=== PATIENT | female | born 1945 | race Caucasian/White ===

== ENCOUNTER 2018-09-22 12:45 | Outpatient (CLI) | payer MEDICARE, SELFPAY ==
[2018-09-22 13:16] LABS: Abs Immature Grans 0.02 k/cumm (0.0-0.09); Absolute Basophil Count 0.05 k/cumm (0.0-0.2); Absolute Eosinophil Count 0.19 k/cumm (0.0-0.7); Absolute Lymphocyte Count 1.84 k/cumm (1.2-3.4); Absolute Monocyte Count 0.62 k/cumm (0.11-0.7); Absolute Neutrophil Count 3.14 k/cumm (1.2-6.7); Basophils % 0.9; Eosinophils % 3.2; HCT 32.6 % (36.0-46.0); HGB 9.8 g/dL (12.0-15.5); Immature Grans % 0.3; Lymphocytes % 31.4; Mean Corp. HGB Concentration 30.1 g/dL (32.0-36.0); Mean Corpuscular Hemoglobin 21.9 pg (27.0-33.0); Mean Corpuscular Volume 72.9 fL (80-95); Mean Platelet Volume 11.8 fL (8.0-11.0); Monocytes % 10.6; Neutrophils % 53.6; Platelet Count 320 x1000/uL (130-400); RBC 4.47 m/cumm (4.00-5.20); RBC Distribution Width 16.3 % (11.7-14.6); White Blood Cell Count 5.86 k/cumm (4.4-10.8)
[2018-09-22 14:29] LABS: Diff Comment RBC Morph Reviewed; Hypochromasia 3+; Microcytosis 3+; Ovalocytes 2+; Poikilocytes 1+; Polychromasia Present
[2018-09-22 15:01] LABS: Iron 36 ug/dL (50-175)
[2018-09-22 15:16] LABS: Ferritin 6 ng/mL (8-388)
== END 2018-09-22 13:05 ==
PROVIDERS: PCP Family Medicine; Visit Provider Family Medicine
DX: D64.9 Anemia, unspecified (principal)
CPT/HCPCS: 36415; 82728; 83540; 85025

== ENCOUNTER 2018-10-16 11:59 | Outpatient (REF) | payer MEDICARE, SELFPAY ==
[2018-10-16 13:51] LABS: Bilirubin Negative (Negative); Blood Negative (Negative); Clarity Clear; Glucose Negative (Negative); Ketones Negative (Negative); Leukocyte Esterase Negative (Negative); Nitrite Negative (Negative); Urobilinogen 0.2 EU/dL (Up TO 0.2); pH 6.5 (5-8)
== END 2018-10-16 12:19 ==
LOC: LBN 11:59
PROVIDERS: PCP Family Medicine; Visit Provider Family Medicine
DX: N39.8 Other specified disorders of urinary system (principal)
CPT/HCPCS: 81003

== ENCOUNTER 2019-01-28 07:34 | Outpatient (REF) | payer MEDICARE, SELFPAY ==
[2019-01-28 09:28] LABS: Bilirubin Negative (Negative); Blood Negative (Negative); Clarity Clear; Glucose Negative (Negative); Ketones Negative (Negative); Leukocyte Esterase Negative (Negative); Nitrite Negative (Negative); Specific Gravity 1.025 (1.005-1.025); Urobilinogen 0.2 EU/dL (Up TO 0.2); pH 5.5 (5-8)
== END 2019-01-28 07:54 ==
LOC: LBN 07:34
PROVIDERS: PCP Family Medicine; Visit Provider Family Medicine
DX: N39.0 Urinary tract infection, site not specified (principal)
CPT/HCPCS: 81003

== ENCOUNTER 2019-01-30 13:21 | Outpatient (CLI) | payer MEDICARE, SELFPAY ==
[2019-01-30 13:49] LABS: HCT 43.2 % (36.0-46.0); HGB 13.9 g/dL (12.0-15.5); Mean Corp. HGB Concentration 32.2 g/dL (32.0-36.0); Mean Corpuscular Hemoglobin 27.5 pg (27.0-33.0); Mean Corpuscular Volume 85.5 fL (80-95); Mean Platelet Volume 11.3 fL (8.0-11.0); Platelet Count 203 x1000/uL (130-400); RBC 5.05 m/cumm (4.00-5.20); RBC Distribution Width 16.8 % (11.7-14.6); White Blood Cell Count 5.75 k/cumm (4.4-10.8)
[2019-01-30 14:12] LABS: Iron 40 ug/dL (50-175)
== END 2019-01-30 13:41 ==
PROVIDERS: PCP Family Medicine; Visit Provider Family Medicine
DX: D64.9 Anemia, unspecified (principal); E61.1 Iron deficiency
CPT/HCPCS: 36415; 85027; 83540

== ENCOUNTER 2019-05-04 01:29 | Outpatient (CLI) | payer MEDICARE, SELFPAY ==
[2019-05-04 08:11] LABS: HCT 43.9 % (36.0-46.0); HGB 14.4 g/dL (12.0-15.5); Mean Corp. HGB Concentration 32.8 g/dL (32.0-36.0); Mean Corpuscular Hemoglobin 29.1 pg (27.0-33.0); Mean Corpuscular Volume 88.9 fL (80-95); Mean Platelet Volume 10.9 fL (8.0-11.0); Platelet Count 228 x1000/uL (130-400); RBC 4.94 m/cumm (4.00-5.20); RBC Distribution Width 13.2 % (11.7-14.6); White Blood Cell Count 5.07 k/cumm (4.4-10.8)
[2019-05-04 09:12] LABS: Iron 56 ug/dL (50-175)
[2019-05-04 09:26] LABS: Ferritin 79 ng/mL (8-388)
== END 2019-05-04 01:49 ==
PROVIDERS: PCP Family Medicine; Visit Provider Family Medicine
DX: D64.9 Anemia, unspecified (principal); E61.1 Iron deficiency
CPT/HCPCS: 36415; 85027; 82728; 83540

== ENCOUNTER 2019-07-30 09:26 | Outpatient (CLI) | payer MEDICARE, SELFPAY ==
[2019-07-30 13:25] LABS: Abs Immature Grans 0.01 k/cumm (0.0-0.09); Absolute Basophil Count 0.03 k/cumm (0.0-0.2); Absolute Eosinophil Count 0.13 k/cumm (0.0-0.7); Absolute Lymphocyte Count 1.75 k/cumm (1.2-3.4); Absolute Monocyte Count 0.56 k/cumm (0.11-0.7); Basophils % 0.5; Eosinophils % 2.2; HCT 44.3 % (36.0-46.0); HGB 14.7 g/dL (12.0-15.5); Immature Grans % 0.2; Lymphocytes % 29.8; Mean Corp. HGB Concentration 33.2 g/dL (32.0-36.0); Mean Corpuscular Hemoglobin 29.5 pg (27.0-33.0); Mean Platelet Volume 10.6 fL (8.0-11.0); Monocytes % 9.5; Neutrophils % 57.8; Platelet Count 255 x1000/uL (130-400); RBC 4.98 m/cumm (4.00-5.20); White Blood Cell Count 5.88 k/cumm (4.4-10.8)
[2019-07-30 14:34] LABS: Iron 119 ug/dL (50-175)
[2019-07-30 14:50] LABS: Ferritin 105 ng/mL (8-388)
== END 2019-07-30 09:46 ==
PROVIDERS: PCP Family Medicine; Visit Provider Family Medicine
DX: D64.9 Anemia, unspecified (principal); E61.1 Iron deficiency
CPT/HCPCS: 36415; 82728; 83540; 85025

== ENCOUNTER 2019-11-09 08:26 | Outpatient (CLI) | payer MEDICARE, SELFPAY ==
[2019-11-09 08:55] LABS: HCT 44.9 % (36.0-46.0); HGB 14.9 g/dL (12.0-15.5); Mean Corp. HGB Concentration 33.2 g/dL (32.0-36.0); Mean Corpuscular Hemoglobin 29.3 pg (27.0-33.0); Mean Corpuscular Volume 88.2 fL (80-95); Platelet Count 240 x1000/uL (130-400); RBC 5.09 m/cumm (4.00-5.20); White Blood Cell Count 4.83 k/cumm (4.4-10.8)
[2019-11-09 13:47] LABS: Ferritin 112 ng/mL (8-252)
[2019-11-09 14:04] LABS: Iron 107 ug/dL (50-170)
== END 2019-11-09 08:46 ==
PROVIDERS: PCP Family Medicine; Visit Provider Family Medicine
DX: D64.9 Anemia, unspecified (principal); E61.1 Iron deficiency
CPT/HCPCS: 36415; 85027; 82728; 83540

== ENCOUNTER 2020-03-11 11:02 | Outpatient (CLI) | payer MEDICARE, SELFPAY ==
--- NOTE | 2020-03-11 10:33 | DI.RAD_ITS ---
EXAM: XR RIBS BI INCLUDE CHEST CLINICAL HISTORY: fell - chest pain and rib pain,r07.81,w19,xxxa TECHNIQUE: 2D digital imaging was performed. COMPARISON: CR CHEST 2 VIEWS PA,LAT from 12/02/2012 FINDINGS: MEDIASTINUM: Hiatal hernia is again seen. HEART: Normal. PULMONARY VASCULATURE: Normal. LUNGS: Clear. PLEURAL SPACE: No pleural effusion or pneumothorax. BONE:Age-appropriate degenerative changes. BILATERAL RIBS: Normal. OTHER FINDINGS:Normal. IMPRESSION: 1. No acute pulmonary findings. 2. Unremarkable ribs. DATA REPOSITORY: RADIATION DOSE DELIVERED:
== END 2020-03-11 11:22 ==
PROVIDERS: PCP Family Medicine; Visit Provider Family Medicine
DX: R07.89 Other chest pain (principal); R07.81 Pleurodynia; W19.XXXA Unspecified fall, initial encounter; K44.9 Diaphragmatic hernia without obstruction or gangrene
CPT/HCPCS: 71046; 71110

== ENCOUNTER 2020-03-14 01:28 | Outpatient (CLI) | payer MEDICARE, SELFPAY ==
--- NOTE | 2020-03-14 11:00 | DI.RAD_ITS ---
EXAM: XR THORACIC SPINE COMPLETE CLINICAL HISTORY: thoracic and rib pain, FALL, BACK PAIN, M54.9 DORSALGIA. TECHNIQUE: 2D digital imaging was performed. COMPARISON: CR XR RIBS BI INCLUDE CHEST from 03/11/2020 FINDINGS: BONES: There is no fracture or destructive lesion. DISKS:Alignment is within normal limits. There are endplate osteophytes greatest in the mid to lower thoracic spine eccentric toward the right. There is some narrowing of the anterior disc spaces.. SOFT TISSUE: Visualized lungs are clear. IMPRESSION: Degenerative disc changes, greater in the mid to lower thoracic region.. DATA REPOSITORY: RADIATION DOSE DELIVERED:
== END 2020-03-14 01:48 ==
PROVIDERS: PCP Family Medicine; Visit Provider Family Medicine
DX: M54.6 Pain in thoracic spine (principal); R07.81 Pleurodynia; W19.XXXA Unspecified fall, initial encounter; M51.34 Other intervertebral disc degeneration, thoracic region
CPT/HCPCS: 72072

== ENCOUNTER 2020-03-14 02:06 | Outpatient (CLI) | payer MEDICARE, SELFPAY ==
[2020-03-14 11:13] LABS: HCT 42.8 % (36.0-46.0); Mean Corp. HGB Concentration 32.7 g/dL (32.0-36.0); Mean Corpuscular Hemoglobin 29.4 pg (27.0-33.0); Mean Corpuscular Volume 89.7 fL (80-95); Mean Platelet Volume 11.5 fL (8.0-11.0); Platelet Count 244 x1000/uL (130-400); RBC 4.77 m/cumm (4.00-5.20); RBC Distribution Width 13.5 % (11.7-14.6); White Blood Cell Count 5.47 k/cumm (4.4-10.8)
[2020-03-14 12:03] LABS: Iron 90 ug/dL (50-170)
[2020-03-14 12:14] LABS: Ferritin 85 ng/mL (8-252)
== END 2020-03-14 02:26 ==
PROVIDERS: PCP Family Medicine; Visit Provider Family Medicine
DX: D64.9 Anemia, unspecified (principal); E61.1 Iron deficiency; M54.9 Dorsalgia, unspecified; R07.81 Pleurodynia; M51.34 Other intervertebral disc degeneration, thoracic region; W19.XXXA Unspecified fall, initial encounter
CPT/HCPCS: 36415; 85027; 72072; 82728; 83540

== ENCOUNTER 2020-06-08 02:41 | Outpatient (CLI) | payer MEDICARE, SELFPAY ==
[2020-06-08 09:30] LABS: HCT 43.2 % (36.0-46.0); HGB 13.9 g/dL (11.2-15.7); MCH 29.1 pg (27.0-33.0); MCHC 32.2 % (32.0-36.0); MCV 90.4 fL (80-95); MPV 11.6 fL (8.0-11.0); Platelet Count 220 10^3/uL (130-400); RBC 4.78 10^6/uL (3.93-5.22); RDW 13.6 % (11.7-14.6); RDW-SD 45.5 fL; WBC 4.36 10^3/uL (4.4-10.8)
[2020-06-08 14:08] LABS: Ferritin 91 ng/mL (8-252)
== END 2020-06-08 03:01 ==
PROVIDERS: PCP Family Medicine; Visit Provider Family Medicine
DX: D64.9 Anemia, unspecified (principal)
CPT/HCPCS: 36415; 85027; 82728

== ENCOUNTER 2020-09-08 05:04 | Outpatient (CLI) | payer MEDICARE, SELFPAY ==
[2020-09-08 08:05] LABS: HCT 43.6 % (36.0-46.0); HGB 14.2 g/dL (11.2-15.7); MCH 29.5 pg (27.0-33.0); MCHC 32.6 % (32.0-36.0); MCV 90.6 fL (80-95); MPV 11.5 fL (8.0-11.0); Platelet Count 251 10^3/uL (130-400); RBC 4.81 10^6/uL (3.93-5.22); RDW-SD 43.5 fL; WBC 5.39 10^3/uL (4.4-10.8)
[2020-09-08 08:27] LABS: Iron 141 ug/dL (50-170)
[2020-09-08 08:38] LABS: ALT 22 U/L (14-59); AST 10 U/L (15-37); Albumin 4.3 g/dL (3.4-5.0); Alkaline Phosphatase 79 U/L (46-116); Anion Gap 8.6 mmol/L (3-11); BUN 16 mg/dL (7-18); Bilirubin, Total 0.5 mg/dL (0.2-1.0); CO2 27.4 mmol/L (21.0-32.0); CREATININE 0.69 mg/dL (0.55-1.02); Calcium 9.2 mg/dL (8.5-10.1); Calculated LDL 80 mg/dL (<100); Chloride 104 mmol/L (98-107); Cholesterol 172 mg/dL (<200); Ferritin 73 ng/mL (8-252); Glucose 108 mg/dL (74-106); HDL Cholesterol 64 mg/dL (40-60); Potassium 3.9 mmol/L (3.5-5.1); Sodium 140 mmol/L (136-145); Triglyceride 141 mg/dL (<150)
[2020-09-08 08:49] LABS: Vitamin D 25 Total 36.1 ng/ml (30-100)
== END 2020-09-08 05:24 ==
PROVIDERS: PCP Family Medicine; Visit Provider Family Medicine
DX: E78.00 Pure hypercholesterolemia, unspecified (principal); R03.0 Elevated blood-pressure reading, without diagnosis of hypertension; E55.9 Vitamin D deficiency, unspecified; D50.9 Iron deficiency anemia, unspecified; K29.60 Other gastritis without bleeding
CPT/HCPCS: 36415; 80053; 80061; 82306; 85027; 82728; 83540

== ENCOUNTER 2020-11-01 02:37 | Outpatient (CLI) | payer MEDICARE, SELFPAY ==
[2020-11-02 12:34] LABS: COVID-19 RT-PCR UVMMC Result Negative (Negative)
== END 2020-11-01 02:38 | disposition home or self-care (01) ==
LOC: LBO 02:37
PROVIDERS: PCP Family Medicine; Visit Provider Podiatrist
DX: Z11.52 Encounter for screening for COVID-19 (principal); Z01.818 Encounter for other preprocedural examination
CPT/HCPCS: U0003; U0005

== ENCOUNTER 2020-11-04 07:17 | Day surgery (SDC) | payer MEDICARE, SELFPAY ==
--- NOTE | 2020-11-04 07:08 | HPE_ITS ---
Date of service: 11/04/20 Time of Service: 07:09 History of Present Illness History of Present Illness Chief Complaint: Symptomatic right HAV deformity, second digit hammertoe, midfoot exostosis Narrative: 74-year-old female with multiple complaints affecting her right foot consisting of a symptomatic bunion deformity, second digit hammertoe and a large exostosis medially positioned left the medial cuneiform bone. All 3 conditions causing pain interfering with comfortable shoe gear and ambulatory activities. Nonoperative treatment to fail to provide sufficient relief of symptoms. [facility]LY [facility] Medical History Acute upper respiratory infection 12/01/[address] scan of the sinus Anxiety 12/31/17 OPAL-7 SCORE=12 Condylomata acuminata in female (05/02/17) Degeneration of intervertebral disc (06/16/13) L5-S1 Depression Depressive disorder (05/10/09) Disorder of skin skin sensitivities-poison oak/giovany; poison giovany-staph inf. 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-right hip replacement DJD L5-S1 Grief 04/19/15 Hiatal hernia Hypermobility syndrome (12/06/11) MARFANS Increased body mass index Internal hemorrhoids Iron deficiency anemia thought to be secondary to large hiatal hernia; requires lifelong iron and PPI Knee pain left; MRI 09/03-posterior horn meniscal tear and decrease cartilage Malignant neoplasm of female breast metastatic Marfan syndrome Menopausal symptom Metatarsalgia 06/25/13 surgery 09/2013 Metatarsalgia (06/25/13) Pain in both hands (05/29/16) Polyp of colon per colonoscopy 2006; Primary insomnia (09/12/15) Primary insomnia (09/12/15) Reflux gastritis (09/14/14) Right foot pain (04/17/16) Sepsis due to urinary tract infection 07/25/15 stone Stress incontinence of urine (01/14/17) Teeth problem 04/19/15 Urgency incontinence (02/12/17) Vaginal atrophy (07/25/15) Vertigo 12/06/11 Vitamin D deficiency (07/16/08) Surgical History Colonoscopy - IV Sedation (02/29/12) [facility] [place]-DIVERTICULOSIS 5YR F/U GLASS REMOVAL 1970 RIGHT KNEE History of bilateral ligation of fallopian tubes History of bilateral tubal ligation 09/30/93 Ligation of fallopian tube (~1993) Meniscectomy 2006 LEFT KNEE S/P tonsillectomy S/P total knee replacement pt. denies this Status post hip replacement Status post THR (total hip replacement) 09/30/11 right Status post total knee replacement Tonsillectomy Total replacement of hip 2004 RIGHT;2010 LEFT Family History Mother , LEUKEMIA at age 87. CLL (chronic lymphocytic leukemia) Arthritis Father , UNKNOWN at age 93. Dementia Hyperlipidemia Brother Diabetes TYPE 2 Kidney disease Maternal Grandfather No problems noted. Paternal Grandfather Prostate cancer Maternal Grandmother Heart disease Son Asthma Social History Smoking/Tobacco Use Status: Former Tobacco Use Quit Date: 09/30/1968 Tobacco: How many years used: 3 Smoking risk assessment performed?: Yes Alcohol Intake: current Alcohol Intake frequency: holidays/special occasions only Alcohol type: wine and hard liquor Drug use: Never Substance use type: does not use Caregiver/Support person: No Household members: family Housing: house Do you need help understanding health information?: Never Pets and animals: Yes Pets and animals: dog(s) Sexually active: No Do you think of yourself as: Asexual Current gender identity: female What is your relationship status?: refused to answer How often do you talk on the phone with friends or family?: decline to answer How often do you get together with friends or relatives?: decline to answer How often do you attend buddhism or baptist services?: decline to answer Do you belong to any clubs or organized social groups?: yes Panel score (0-1 are the most socially isolated patients): 1 What type of physical activity do you participate in: walking and other 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: 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, 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 Duration: 60-90 minutes/day Frequency: daily Eliza/Jewish: Other Special eliza needs: No Seatbelt use: always Helmet use: Yes Helmet use: always Drive 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 Do you feel safe at home: Yes Do you feel safe in your relationship?: Yes Meds Home Medications and Allergies Home Medications Medication Instructions Recorded Confirmed Type metronidazole [Metrogel] 1 applic TOPICAL DAILY PRN #3 tube 05/29/16 11/02/20 History diazepam 2 mg PO HS PRN #30 tab 04/24/18 11/02/20 History acetaminophen 500 mg tablet 1,000 mg PO Q6H PRN tab 09/25/18 11/02/20 History ascorbic acid (vitamin C) 500 mg 500 mg PO DAILY cap 04/05/20 11/02/20 History capsule calcium carbonate 333 mg-magnesium 1 tab PO TID 04/05/20 11/02/20 History oxide 133 mg-zinc sulf 5 mg tablet mupirocin 2 % topical ointment 1 applic TP BID #30 gm 04/05/20 11/02/20 Rx THC Sativa PO 07/28/20 07/28/20 History adjuvant AS01B (PF)vial 1 of 2 1 ml IM ONCE #0.5 ml 07/28/20 11/02/20 Rx cholecalciferol (vitamin D3) 25 100 mcg PO DAILY cap 07/28/20 11/02/20 History mcg (1,000 unit) capsule clindamycin phosphate 1 % topical 1 applic TOPICAL DAILY #60 ml 07/28/20 11/02/20 Rx solution escitalopram oxalate 20 mg tablet 30 mg PO DAILY #135 tab 07/28/20 11/02/20 Rx ferrous sulfate 134 mg (27 mg 134 mg PO DAILY 07/28/20 11/02/20 History iron) tablet lactobacillus rhamnosus R0011 20 20 cell PO DAILY cap 07/28/20 11/02/20 History billion cell capsule docusate sodium [Colace] 100 mg PO DAILY 11/02/20 11/02/20 History loratadine 10 mg PO DAILY 11/02/20 11/02/20 History solifenacin 10 mg PO DAILY 11/02/20 11/02/20 History Allergies Allergy/AdvReac Type Severity Reaction Status Date / Time bee venom protein (honey bee) Allergy Severe Anaphylaxsi Verified 07/28/20 08:14 s Tetracyclines Allergy Severe Anaphylaxsi Unverified 07/28/20 08:14 s trazodone AdvReac Severe Psychosis Unverified 11/02/20 11:16 Exam Narrative Exam Narrative: 74-year-old white female in no acute distress Head is normocephalic in appearance Eyes PERRLA Hearing is adequate Airway looks assessable, uvula was midline, no suspicious oral lesions noted Heart had regular rate and rhythm I detected no abnormalities such as murmur, rubs or gallops Lung traylor were clear Abdomen is soft, nontender bowel sounds x4 Peripheral pulses palpable at the ankle minus 2 out of 4 capillary fill is under 3 seconds no peripheral edema Muscle groups are 5 out of 5 bilaterally Skeletal exam is remarkable for hallux valgus deformity right foot, semirigid second digit hammertoe and a large palpable exostosis coming from the medial aspect of the medial cuneiform. Tenderness is appreciated at the first MPJ of the right foot, dorsally over the PIPJ of the second toe and medially adjacent to the exostosis. Neurologically she is grossly intact. Impressions: Symptomatic right HAV deformity Symptomatic right second hammertoe Symptomatic exostosis midfoot right Plan: Diamond is being brought to the OR for surgical repair of the bunion deformity, hammertoe and exostosis. Potential risk and complications of surgery were reviewed including the potential for pain, scarring, infection, over or under correction with potential recurrence of deformities. All questions have been answered in detail. No promises were made to final outcome of surgery. COVID-19 Screening Have you, or household traveled for leisure in last 14 days?: No Had IN PERSON contact w/suspected or confirmed C-19 person: No
[2020-11-04 07:38] VITALS: BP 126/69; PULSE 73; RESP 16; TEMP 36.5; O2SAT 99
[2020-11-04] MEDS: Lactated Ringers 1,000 ML 80 ML IV (07:56)
[2020-11-04 08:01] LABS: INR 1.1 (0.9-1.1); PTT Activated 26.7 sec (21.0-27.5); Prothrombin Time 10.6 sec (9.3-11.0)
[2020-11-04] MEDS: ceFAZolin 1 GM/50 ML BAG IVPB (09:12)
[2020-11-04] MEDS: Lidocaine 1% Pres-Free 5 ML VIAL (09:15)
[2020-11-04] MEDS: Bupivacaine 0.5% Pres-Free 30 ML VIAL (09:15)
[2020-11-04] MEDS: Dexamethasone 4 MG/ML VIAL (10:35)
--- NOTE | 2020-11-04 10:47 | PDOC.DSDIS_ITS ---
Discharge Plan Disposition Patient Disposition: HOME Condition: Good Discharge Details Reason For Visit: Bunionectomy, second digit arthroplasty, exostecto Attending Provider: Yonatan Melo Primary Care Provider: Mariluz Watts Home Meds and New Rx's Prescriptions: New ibuprofen 600 mg tablet 600 mg PO Q6H PRN (Reason: pain and inflammation) Qty: 60 RF: 0 hydrocodone-acetaminophen [[place]] 5-325 mg tablet 1 tab PO Q6H PRN (Reason: pain) Qty: 9 RF: 0 Continued ascorbic acid (vitamin C) 500 mg capsule 500 mg PO DAILY RF: 0 calcium carb-mag ox-zinc sulf 333-133-5 mg tablet 1 tab PO TID RF: 0 mupirocin 2 % ointment 1 applic TP BID Qty: 30 RF: 0 acetaminophen [Tylenol Extra Strength] 500 mg tablet 1,000 mg PO Q6H PRNRF: 0 cholecalciferol (vitamin D3) 25 mcg (1,000 unit) capsule 100 mcg PO DAILY RF: 0 Probiotic Digestive Care 20 billion cell capsule 20 cell PO DAILY RF: 0 THC Sativa PO RF: 0 clindamycin phosphate 1 % solution 1 applic topical DAILY Qty: 60 RF: 5 ferrous sulfate 134 mg (27 mg iron) tablet 134 mg PO DAILY RF: 0 escitalopram oxalate 20 mg tablet 30 mg PO DAILY Qty: 135 RF: 4 Shingrix Adjuvant Component-PF Suspension 1 ml IM ONCE Qty: 0.5 RF: 1 metronidazole [Metrogel] 60 GM gel 1 applic Topical DAILY PRNQty: 3 RF: 12 diazepam 2 MG tablet 2 mg PO HS PRNQty: 30 RF: 3 docusate sodium [Colace] 100 mg Capsule 100 mg PO DAILY RF: 0 loratadine 10 mg Tablet 10 mg PO DAILY RF: 0 solifenacin 10 mg tablet 10 mg PO DAILY RF: 0 Discharge Instructions Activity:: Elevate Remove Dressings/Wound Care:: Do Not Remove Shower/Bathe:: Cover Diet:: Normal Diet Discharge Orders Discharge Orders: Discharge Order (Routine); Ordered 11/04/20 Ordered By: Yonatan Melo DS: Diagnosis Discharge Diagnosis (1) Hallux valgus (acquired), right foot: Status: Acute
--- NOTE | 2020-11-04 10:57 | ROE_ITS ---
Date of service: 11/04/20 Time of Service: 10:58 Operative Note Operative Note DATE OF PROCEDURE: 11/04/20 PRE-OP DIAGNOSIS: Right bunion, second hammertoe, exostosis midfoot POST-OP DIAGNOSIS: same PROCEDURE: Modified Armstrong bunionectomy, arthroplasty second toe with 0.045 K wire fixation, exostectomy first metatarsal cuneiform joint all to the right foot SURGEON: Yonatan Melo ANESTHESIA: GETA ESTIMATED BLOOD LOSS: 2 PATHOLOGY: none sent TOURNIQUET TIME: 72 COMPLICATIONS: None Patient was transported to: same day Patient's condition: stable Indications: 74-year-old female with multiple complaints right foot including symptomatic bunion deformity, second digit hammertoe, and a large medial exostosis on the first metatarsal cuneiform joints 4 to the right foot. All 3 conditions are making shoe gear painful interfering with comfortable ambulation and daily activities. Nonoperative treatments have failed to provide lasting relief of symptoms. She is opting for surgical intervention for correction of these problems. She understands potential risk and complications of surgery pertaining to pain, scarring, infection, over or under correction of the deformities with persistent symptoms similar to her preoperative levels potentially requiring revision procedures. All questions have been answered in detail. No promises made to final outcome of surgery. Procedure Description: Diamond was brought to the operative suite placed in the supine position with the right foot prepped and draped in the usual sterile podiatric fashion. Timeout was performed via protocol. The right foot was exsanguinated well-padded ankle tourniquet inflated 250 mmHg. Attention was directed to the medial aspect of the right foot at the first metatarsocuneiform joint where an 1-1/2 cm incision was made centered directly over the bone spur. The incision was deepened in controlled depth fashion hemostasis acquired with electrocautery as needed. Dissection was carried down to the periosteum. The periosteum was incised midline over the exostosis and retracted medially and laterally. With osteotome and mallet the exostosis was resected all rough and bony edges were rasped smooth. The wound was copiously irrigated with normal saline. The periosteum was repaired with simple interrupted suture 3-0 Vicryl. The subcutaneous layer was repaired with simple interrupted suture of 4-0 Vicryl. And the skin was coapted with horizontal mattress suture of 4-0 nylon. Attention was directed to the first MPJ where a 4 cm incision was made medial parallel to the EHL tendon. Incision was deepened in controlled depth fashion was located over the first MPJ. Dissection was carried down to the joint capsule. Contracture laterally was appreciated. A lateral release was performed consisting of a lateral capsulotomy and adductor tendon release. A medial inverted L capsulotomy was then performed and the medial joint capsule opened. Degenerative change was noted over the medial dorsal aspect of the joint hypertrophy noted over the medial aspect of the first metatarsal head. With power instrumentation the medial and medial dorsal hyperostosis was resected the bone was noted to be soft. All rough bony edges were rasped smooth. The hallux was in a more relaxed position at this time. Copious irrigation with normal saline was performed. A medial capsulorrhaphy was performed and the joint capsule repaired with simple interrupted suture 3-0 Vicryl. The subcutaneous and subcuticular layers were then closed with 4-0 Vicryl and 4-0 Monocryl respectively. Mastisol and half-inch Steri-Strips applied over the skin. Attention was directed to the second toe with 2 converging transverse incisions were placed at the distal interphalangeal joint level. Skin wedge was excised. Soft tissue mobilization was performed. A transverse tenotomy was performed at the DIPJ level and the joint entered. Degenerative change of the articular surface was noted. The head of the middle phalanx was then resected with double-action bone cutting forcep. All rough and bony edges were rasped smooth. Fixation was obtained with a 0.045 K wire in retrograde fashion. Good position of the second toe was appreciated. The extensor tendon was repaired with a single horizontal mattress suture 3-0 Vi cryl. Skin was coapted with simple interrupted suture of 4-0 nylon. 4 mg of dexamethasone phosphate was then infused around the first MPJ region Xeroform gauze fluff compression dressings applied Betadine applied to the K wire tourniquet was released at approximately 72 minutes vascularity returning immediately to all toes. Diamond left the OR with vital signs stable vascular status intact sharp and sponge counts were correct she will be followed by myself in the office next week.
[2020-11-04 11:25] VITALS: BP 123/74; PULSE 64; RESP 16; TEMP 36.1; O2SAT 100
== END 2020-11-04 11:55 | disposition home or self-care (01) ==
PROVIDERS: PCP Family Medicine; Visit Provider Podiatrist
PROC: (CPT 28292; principal; 2020-11-04 08:30)
PROC: (CPT 28292; 2020-11-04 08:30)
DX: M20.11 Hallux valgus (acquired), right foot (principal); M21.611 Bunion of right foot; M89.8X7 Other specified disorders of bone, ankle and foot
CPT/HCPCS: 28292; 28122; 28285; 36415; 99222; 85610; 85730; J0690; J1100; J1885; J2001; J2405; J2704; J3010

== ENCOUNTER 2020-12-07 13:15 | Outpatient (CLI) | payer MEDICARE, SELFPAY ==
[2020-12-07 13:56] LABS: HGB 13.8 g/dL (11.2-15.7); MCH 29.4 pg (27.0-33.0); MCHC 32.9 % (32.0-36.0); MCV 89.4 fL (80-95); MPV 10.4 fL (8.0-11.0); Platelet Count 218 10^3/uL (130-400); RDW-SD 42.5 fL; WBC 6.59 10^3/uL (4.4-10.8)
[2020-12-07 14:44] LABS: ALT 25 U/L (14-59); AST 13 U/L (15-37); Albumin 3.7 g/dL (3.4-5.0); Alkaline Phosphatase 74 U/L (46-116); Anion Gap 9.2 mmol/L (3-11); BUN 14 mg/dL (7-18); Bilirubin, Total 0.2 mg/dL (0.2-1.0); CO2 29.8 mmol/L (21.0-32.0); CREATININE 0.6 mg/dL (0.55-1.02); Calcium 9.3 mg/dL (8.5-10.1); Calculated LDL 29 mg/dL (<100); Chloride 104 mmol/L (98-107); Cholesterol 156 mg/dL (<200); Ferritin 42 ng/mL (8-252); Glucose 90 mg/dL (74-106); HDL Cholesterol 50 mg/dL (40-60); Potassium 4.1 mmol/L (3.5-5.1); Sodium 143 mmol/L (136-145); Total Protein 6.8 g/dL (6.4-8.2); Triglyceride 385 mg/dL (<150)
[2020-12-08 04:48] LABS: Vitamin D 25 Total 32.6 ng/ml (30-100)
== END 2020-12-07 13:16 | disposition home or self-care (01) ==
PROVIDERS: PCP Family Medicine; Visit Provider Family Medicine
DX: E78.00 Pure hypercholesterolemia, unspecified (principal); E55.9 Vitamin D deficiency, unspecified; D50.9 Iron deficiency anemia, unspecified; R03.0 Elevated blood-pressure reading, without diagnosis of hypertension; M15.8 Other polyosteoarthritis
CPT/HCPCS: 36415; 80053; 80061; 82306; 85027; 82728; 84443

== ENCOUNTER 2021-03-01 03:18 | Outpatient (CLI) | payer MEDICARE, SELFPAY ==
[2021-03-01 11:11] LABS: HCT 43.2 % (36.0-46.0); HGB 14.1 g/dL (11.2-15.7); MCH 29.1 pg (27.0-33.0); MCHC 32.6 % (32.0-36.0); MCV 89.3 fL (80-95); MPV 10.5 fL (8.0-11.0); Platelet Count 223 10^3/uL (130-400); RBC 4.84 10^6/uL (3.93-5.22); RDW 12.8 % (11.7-14.6)
[2021-03-01 12:21] LABS: Ferritin 35 ng/mL (8-252)
== END 2021-03-01 03:19 | disposition home or self-care (01) ==
LOC: LBO 03:18
PROVIDERS: PCP Family Medicine; Visit Provider Family Medicine
DX: D50.9 Iron deficiency anemia, unspecified (principal)
CPT/HCPCS: 36415; 85027; 82728

== ENCOUNTER 2021-04-25 17:25 | Outpatient (REF) | payer MEDICARE, SELFPAY | END 2021-04-25 17:26 | disposition home or self-care (01) | LOC: LBN 17:25 | PROVIDERS: PCP Family Medicine; Visit Provider Nurse Practitioner Family | DX: R10.32 Left lower quadrant pain (principal) | CPT/HCPCS: 87077; 87086; 87186 ==

== ENCOUNTER 2021-05-02 11:16 | Outpatient (REF) | payer MEDICARE, SELFPAY ==
[2021-05-02 14:48] LABS: Bilirubin Negative (Negative); Blood Negative (Negative); Clarity Clear (Clear); Glucose Negative (Negative); Ketones Negative (Negative); Leukocyte Esterase Negative (Negative); Nitrite Negative (Negative); Specific Gravity 1.025 (1.005-1.025); Urobilinogen 0.2 EU/dL (Up TO 0.2); pH 5.5 (5-8)
== END 2021-05-02 11:17 | disposition home or self-care (01) ==
LOC: LBN 11:16
PROVIDERS: PCP Family Medicine; Visit Provider Family Medicine
DX: N32.89 Other specified disorders of bladder (principal)
CPT/HCPCS: 81003

== ENCOUNTER 2021-05-11 19:05 | Emergency (ER) | payer MEDICARE, SELFPAY ==
[2021-05-11 19:22] VITALS: BP 116/82; PULSE 105; RESP 16; TEMP 36.9; O2SAT 93
--- NOTE | 2021-05-11 19:45 | ED.GENADUL_ITS ---
Discharge Plan Disposition Patient Disposition: HOME Condition: Stable Discharge Details Clinical Impression: Diarrhea Primary Care Provider: Mariluz Watts ED Provider: Saira Maciel Home Meds and New Rx's Prescriptions: Continued ascorbic acid (vitamin C) 500 mg capsule 500 mg PO DAILY RF: 0 calcium carb-mag ox-zinc sulf 333-133-5 mg tablet 1 tab PO DAILY RF: 0 acetaminophen [Tylenol Extra Strength] 500 mg tablet 1,000 mg PO TID RF: 0 Probiotic Digestive Care 20 billion cell capsule 20 cell PO DAILY RF: 0 cholecalciferol (vitamin D3) 25 mcg (1,000 unit) capsule 4,000 unit PO DAILY RF: 0 clindamycin phosphate 1 % solution 1 applic topical DAILY PRNRF: 0 ferrous sulfate 325 mg (65 mg iron) tablet 325 mg PO BID RF: 0 mupirocin 2 % ointment 1 applic TP BID PRNRF: 0 escitalopram oxalate 20 mg tablet 20 mg PO DAILY RF: 0 metronidazole [Metrogel] 60 GM gel 1 applic Topical DAILY PRNQty: 3 RF: 12 diazepam 2 MG tablet 2 mg PO HS PRNQty: 30 RF: 3 omeprazole 20 mg capsule,delayed release(DR/EC) 20 mg PO DAILY RF: 0 iron bis glycinat-vit C-FA-B12 28 mg iron-60mg -400 mcg-8 mcg Capsule 1 cap PO DAILY RF: 0 docusate sodium [Colace] 100 mg Capsule 100 mg PO DAILY RF: 0 solifenacin 10 mg tablet 10 mg PO DAILY RF: 0 hydrocodone-acetaminophen [Newman] 5-325 mg tablet 1 tab PO Q6H PRN (Reason: pain) Qty: 9 RF: 0 loratadine 10 mg tablet 10 mg PO DAILY PRNRF: 0 Discontinued amoxicillin-pot clavulanate 500-125 mg tablet 1 tab PO BID Qty: 14 RF: 0 Discharge Instructions Instructions: Acute Diarrhea (ED) Additional Instructions: your work up shows no evidence of urinary tract infection or dehydration. your stool sample was negative for c-diff, we have other stool samples pending. you can take imodium if needed for diarrhea drink plenty of fluids to stay well hydrated. Referrals: Mariluz Watts MD, [place] [Primary Care Provider] - Discharge Data Discharge Date/Time-TO BE ENTERED AT DEPARTURE: 05/11/21 21:47 Medical Decision Making recently treated for MDRO, suspect cdiff colitis. will check stool send cultures, check basic labs. she is drinking well and doesn't appear dehydrated. declines zofran at this time. will give 1 liter of NS. repeat urine. all labs reviewed and are unremarkable. UTI cleared. stool was negative for cdiff. other cultures pending., patient is stable for discharge to home, will advise imodium and push fluids return sooner for new or worsening symptoms Medical Records Medical records reviewed: Yes I reviewed the patient's medical records. Lab Data Lab results reviewed: Yes I reviewed the patient's lab results. Lab results narrative: 05/11/21 21:27 Stool Lactoferrin Latex Agglutination - Final Laboratory Tests Range/Units 05/11/21 05/11/21 05/11/21 19:50 19:50 19:50 WBC (4.4-10.8) 10^3/uL RBC (3.93-5.22) 10^6/uL Hgb (11.2-15.7) g/dL Hct (36.0-46.0) % MCV (80-95) fL MCH (27.0-33.0) pg MCHC (32.0-36.0) % RDW (11.7-14.6) % Plt Count (130-400) 10^3/uL MPV (8.0-11.0) fL Immature Gran % Neutrophils % Lymphocytes % Monocytes % Eosinophils % Basophils % Nucleated RBC % % Absolute Neutrophils (1.2-6.7) 10^3/uL Absolute Lymphocytes (1.2-3.4) 10^3/uL Absolute Monocytes (0.1-0.8) 10^3/uL Absolute Eosinophils (0.0-0.7) 10^3/uL Absolute Basophils (0.0-0.2) 10^3/uL Sodium (136-145) mmol/L Potassium (3.5-5.1) mmol/L Chloride (98-107) mmol/L Carbon Dioxide (21.0-32.0) mmol/L Anion Gap (3-11) mmol/L BUN (7-18) mg/dL Creatinine (0.55-1.02) mg/dL Estimated GFR/1.73 m2 (mL/min/1.73m2) Glucose (74-106) mg/dL Calcium (8.5-10.1) mg/dL Magnesium (1.8-2.4) mg/dL Total Bilirubin (0.2-1.0) mg/dL AST (15-37) U/L ALT (14-59) U/L Alkaline Phosphatase (46-116) U/L Total Protein (6.4-8.2) g/dL Albumin (3.4-5.0) g/dL Urine Color (Yellow) Yellow Urine Clarity (Clear) Clear Urine pH (5-8) 5.5 Ur Specific [place] (1.005-1.025) 1.010 Urine Protein (Negative) mg/dL Negative Urine Ketones (Negative) mg/dL Negative Urine Blood (Negative) Negative Urine Nitrite (Negative) Negative Urine Bilirubin (Negative) Negative Urine Urobilinogen (Up TO 0.2) EU/dL 0.2 Ur Leukocyte Esterase (Negative) Negative Urine Glucose (Negative) mg/dL Negative Stool Campylobacter PCR (Negative) Negative Stl C.difficile Tox PCR (Negative) Negative Stool Salmonella PCR (Negative) Negative Stool Shigella PCR (Negative) Negative Shiga Toxin (PCR) (Negative) Negative Range/Units 05/11/21 05/11/21 20:32 20:32 WBC (4.4-10.8) 10^3/uL 9.31 RBC (3.93-5.22) 10^6/uL 4.95 Hgb (11.2-15.7) g/dL 14.2 Hct (36.0-46.0) % 43.8 MCV (80-95) fL 88.5 MCH (27.0-33.0) pg 28.7 MCHC (32.0-36.0) % 32.4 RDW (11.7-14.6) % 13.0 Plt Count (130-400) 10^3/uL 219 MPV (8.0-11.0) fL 10.5 Immature Gran % 0.4 Neutrophils % 77.7 Lymphocytes % 11.3 Monocytes % 9.3 Eosinophils % 1.0 Basophils % 0.3 Nucleated RBC % % 0 Absolute Neutrophils (1.2-6.7) 10^3/uL 7.23 H Absolute Lymphocytes (1.2-3.4) 10^3/uL 1.05 L Absolute Monocytes (0.1-0.8) 10^3/uL 0.87 H Absolute Eosinophils (0.0-0.7) 10^3/uL 0.09 Absolute Basophils (0.0-0.2) 10^3/uL 0.03 Sodium (136-145) mmol/L 139 Potassium (3.5-5.1) mmol/L 3.5 Chloride (98-107) mmol/L 104 Carbon Dioxide (21.0-32.0) mmol/L 26.7 Anion Gap (3-11) mmol/L 8.3 BUN (7-18) mg/dL 14 Creatinine (0.55-1.02) mg/dL 0.7 Estimated GFR/1.73 m2 (mL/min/1.73m2) >= 60.00 Glucose (74-106) mg/dL 108 H Calcium (8.5-10.1) mg/dL 8.3 L Magnesium (1.8-2.4) mg/dL 2.0 Total Bilirubin (0.2-1.0) mg/dL 0.7 AST (15-37) U/L 10 L ALT (14-59) U/L 24 Alkaline Phosphatase (46-116) U/L 74 Total Protein (6.4-8.2) g/dL 6.8 Albumin (3.4-5.0) g/dL 3.9 Urine Color (Yellow) Urine Clarity (Clear) Urine pH (5-8) Ur Specific [place] (1.005-1.025) Urine Protein (Negative) mg/dL Urine Ketones (Negative) mg/dL Urine Blood (Negative) Urine Nitrite (Negative) Urine Bilirubin (Negative) Urine Urobilinogen (Up TO 0.2) EU/dL Ur Leukocyte Esterase (Negative) Urine Glucose (Negative) mg/dL Stool Campylobacter PCR (Negative) Stl C.difficile Tox PCR (Negative) Stool Salmonella PCR (Negative) Stool Shigella PCR (Negative) Shiga Toxin (PCR) (Negative) HPI General Date/Time Provider Initiated Documentation: 05/11/21 19:40 . Information obtained by: patient and old records reviewed . HPI Narrative: patient presents for evaluation of abdominal pain and diarrhea, recently treated with 3 different antibiotics for MDR ecoli. first cipro, then madrodantin then augmentin. states symptoms of nausea resolved but today having frequent watery diarrhea Related Data Home Medications Medication Instructions Recorded Confirmed metronidazole [Metrogel] 1 applic TOPICAL DAILY PRN #3 tube 05/29/16 05/11/21 diazepam 2 mg PO HS PRN #30 tab 04/24/18 05/11/21 ascorbic acid (vitamin C) 500 mg 500 mg PO DAILY cap 04/05/20 05/11/21 capsule lactobacillus rhamnosus R0011 20 20 cell PO DAILY cap 07/28/20 05/11/21 billion cell capsule docusate sodium [Colace] 100 mg PO DAILY 11/02/20 05/11/21 solifenacin 10 mg PO DAILY 11/02/20 05/11/21 hydrocodone-acetaminophen [Newman] 1 tab PO Q6H PRN #9 tab 11/04/20 05/02/21 acetaminophen 500 mg tablet 1,000 mg PO TID tab 05/02/21 05/11/21 calcium carbonate 333 mg-magnesium 1 tab PO DAILY tab 05/02/21 05/11/21 oxide 133 mg-zinc sulf 5 mg tablet cholecalciferol (vitamin D3) 25 4,000 unit PO DAILY cap 05/02/21 05/11/21 mcg (1,000 unit) capsule clindamycin phosphate 1 % topical 1 applic TOPICAL DAILY PRN ml 05/02/21 05/11/21 solution escitalopram oxalate 20 mg tablet 20 mg PO DAILY tab 05/02/21 05/11/21 ferrous sulfate 325 mg (65 mg 325 mg PO BID 05/02/21 05/02/21 iron) tablet loratadine 10 mg tablet 10 mg PO DAILY PRN 05/02/21 05/11/21 mupirocin 2 % topical ointment 1 applic TP BID PRN gm 05/02/21 05/11/21 iron bis glycinat-vit C-FA-B12 1 cap PO DAILY 05/11/21 05/11/21 omeprazole 20 mg PO DAILY 05/11/21 05/11/21 Previous Rx's Medication Instructions Recorded hydrocodone-acetaminophen [Newman] 1 tab PO Q6H PRN #9 tab 11/04/20 Allergies Allergy/AdvReac Type Severity Reaction Status Date / Time bee venom protein (honey bee) Allergy Severe Anaphylaxsi Verified 05/11/21 19:27 s Tetracyclines Allergy Severe Anaphylaxsi Unverified 05/11/21 19:27 s trazodone AdvReac Severe Psychosis Unverified 05/11/21 19:27 General Stated Complaint: Nausea/Vomit/Diar CHELLY: 3 Review of Systems Constitutional Constitutional: Denies fever(s) Cardiovascular Cardiovascular: Denies chest pain and Denies dyspnea Respiratory Respiratory: Denies dyspnea Gastrointestinal Gastrointestinal: Denies melena, Denies hematochezia, Reports diarrhea (watery, frequent episodes today) and Reports nausea (resolved at this time) Genitourinary Genitourinary: Denies dysuria, Denies pelvic pain, Reports urinary incontinence (chronic), Denies urinary hesitancy, Denies urinary urgency and Denies vaginal discharge [facility] Medical History (Updated 05/11/21 @ 21:32 by Saira Maciel NP) Acute upper respiratory infection 12/01/[address] scan of the sinus Anxiety 12/31/17 OPAL-7 SCORE=12 Condylomata acuminata in female (05/02/17) Degeneration of intervertebral disc (06/16/13) L5-S1 Depression Depressive disorder (05/10/09) Disorder of skin skin sensitivities-poison oak/giovany; poison giovany-staph inf. 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-right hip replacement DJD L5-S1 Grief 04/19/15 Hiatal hernia Hypermobility syndrome (12/06/11) MARFANS Increased body mass index Internal hemorrhoids Iron deficiency anemia thought to be secondary to large hiatal hernia; requires lifelong iron and PPI Knee pain left; MRI 09/03-posterior horn meniscal tear and decrease cartilage Malignant neoplasm of female breast metastatic Marfan syndrome Menopausal symptom Metatarsalgia 06/25/13 surgery 09/2013 Metatarsalgia (06/25/13) Pain in both hands (05/29/16) Polyp of colon per colonoscopy 2006; Primary insomnia (09/12/15) Primary insomnia (09/12/15) Reflux gastritis (09/14/14) Right foot pain (04/17/16) Sepsis due to urinary tract infection 07/25/15 stone Stress incontinence of urine (01/14/17) Teeth problem 04/19/15 Urgency incontinence (02/12/17) Vaginal atrophy (07/25/15) Vertigo 12/06/11 Vitamin D deficiency (07/16/08) Surgical History (Updated 11/04/20 @ 07:37 by Tiffany Gray) Colonoscopy - IV Sedation (02/29/12) [facility] [place]/U GLASS REMOVAL 1969 RIGHT KNEE H/O cystoscopy History of bilateral ligation of fallopian tubes History of bilateral tubal ligation 09/30/93 History of eyelid surgery Bilateral Ligation of fallopian tube (~1993) Meniscectomy 2006 LEFT KNEE S/P tonsillectomy S/P total knee replacement pt. denies this Status post hip replacement Status post THR (total hip replacement) 09/30/11 right Status post total knee replacement Tonsillectomy Total replacement of hip 2004 RIGHT;2010 LEFT Family History Mother , LEUKEMIA at age 87. CLL (chronic lymphocytic leukemia) Arthritis Father , UNKNOWN at age 93. Dementia Hyperlipidemia Brother Diabetes TYPE 2 Kidney disease Maternal Grandfather No problems noted. Paternal Grandfather Prostate cancer Maternal Grandmother Heart disease Son Asthma Social History Smoking/Tobacco Use Status: Former Tobacco Use Quit Date: 09/30/1968 Tobacco: How many years used: 3 Smoking risk assessment performed?: Yes Alcohol Intake: current Alcohol Intake frequency: holidays/special occasions only Drug use: Occasionally Substance use type: marijuana Caregiver/Support person: No Household members: family Housing: house Do you need help understanding health information?: Never Pets and animals: Yes Pets and animals: dog(s) Sexually active: No Do you think of yourself as: Asexual Current gender identity: female What is your relationship status?: refused to answer How often do you talk on the phone with friends or family?: decline to answer How often do you get together with friends or relatives?: decline to answer How often do you attend episcopal or moravian services?: decline to answer Do you belong to any clubs or organized social groups?: yes Panel score (0-1 are the most socially isolated patients): 1 What type of physical activity do you participate in: walking and other 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, 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 Duration: 60-90 minutes/day Frequency: daily Eliza/Sikh: Other Special eliza needs: No Seatbelt use: always Helmet use: Yes Helmet use: always Drive intox or ride w/intox regional dedicated truck driver: No Do you feel safe at home: Yes Exam Const General: cooperative, healthy appearing, comfortable, no acute distress and well developed Nutritional Appearance: average body habitus Orientation: alert, awake and oriented x3 HENMT Head: normal to inspection, normocephalic and atraumatic Mouth: oral mucosae normal Resp Effort & Inspection: normal respiratory effort Cardio Rate: regular rate Rhythm: regular rhythm GI Inspection: normal to inspection Palpation: soft and nontender Auscultation: hyperactive bowel sounds Skin General skin exam: no rashes or lesions noted Neuro General: patient alert, patient awake and patient oriented x3 Cognition: normal cognition Speech: speech normal Extrem General: normal to inspection and full ROM Course Vital Signs Vital signs: Vital Signs Temperature 36.9 C 05/11/21 19:22 Pulse 105 H 05/11/21 19:22 Respiratory Rate 16 05/11/21 19:22 Blood Pressure 116/82 05/11/21 19:22 Pulse Oximetry 93 05/11/21 19:22 Temperature 36.9 C 05/11/21 19:22 Temperature Source Skin 05/11/21 19:22 Pulse 105 H 05/11/21 19:22 Respiratory Rate 16 05/11/21 19:22 Blood Pressure 116/82 05/11/21 19:22 Blood Pressure Position Sitting 05/11/21 19:22 Pulse Oximetry 93 05/11/21 19:22 Oxygen Delivery Method Room Air 05/11/21 19:22 Oxygen Flow Rate 0 05/11/21 19:22 Pain Level 0 05/11/21 19:22
[2021-05-11 20:08] LABS: Bilirubin Negative (Negative); Blood Negative (Negative); Clarity Clear (Clear); Glucose Negative (Negative); Ketones Negative (Negative); Leukocyte Esterase Negative (Negative); Nitrite Negative (Negative); Urobilinogen 0.2 EU/dL (Up TO 0.2); pH 5.5 (5-8)
[2021-05-11 20:38] LABS: Abs Immature Grans 0.04 10^3/uL (0.0-0.06); Absolute Basophil Count 0.03 10^3/uL (0.0-0.2); Absolute Eosinophil Count 0.09 10^3/uL (0.0-0.7); Absolute Lymphocyte Count 1.05 10^3/uL (1.2-3.4); Absolute Monocyte Count 0.87 10^3/uL (0.1-0.8); Absolute Neutrophil Count 7.23 10^3/uL (1.2-6.7); Basophils % 0.3; HCT 43.8 % (36.0-46.0); HGB 14.2 g/dL (11.2-15.7); Immature Grans % 0.4; Lymphocytes % 11.3; MCH 28.7 pg (27.0-33.0); MCHC 32.4 % (32.0-36.0); MCV 88.5 fL (80-95); MPV 10.5 fL (8.0-11.0); Monocytes % 9.3; Neutrophils % 77.7; Nucleated RBC 0 %; Platelet Count 219 10^3/uL (130-400); RBC 4.95 10^6/uL (3.93-5.22); RDW-SD 42.6 fL; WBC 9.31 10^3/uL (4.4-10.8)
[2021-05-11] MEDS: Normal Saline 1,000 ML 1000 ML IV (20:38)
[2021-05-11] MEDS: Ondansetron 4 MG/2 ML VIAL IVP (20:40)
[2021-05-11 20:52] LABS: ALT 24 U/L (14-59); AST 10 U/L (15-37); Albumin 3.9 g/dL (3.4-5.0); Alkaline Phosphatase 74 U/L (46-116); Anion Gap 8.3 mmol/L (3-11); BUN 14 mg/dL (7-18); Bilirubin, Total 0.7 mg/dL (0.2-1.0); CO2 26.7 mmol/L (21.0-32.0); CREATININE 0.7 mg/dL (0.55-1.02); Calcium 8.3 mg/dL (8.5-10.1); Chloride 104 mmol/L (98-107); Glucose 108 mg/dL (74-106); Potassium 3.5 mmol/L (3.5-5.1); Sodium 139 mmol/L (136-145); Total Protein 6.8 g/dL (6.4-8.2)
[2021-05-11 20:55] LABS: C Diff PCR Negative (Negative)
[2021-05-11] MEDS: Loperamide 2 MG CAP PO (21:37)
[2021-05-12 21:41] LABS: Campylobacter PCR Negative (Negative); Salmonella PCR Negative (Negative); Shiga Toxin PCR Negative (Negative); Shigella/Enteroinvasive Ecoli Negative (Negative)
== END 2021-05-11 21:47 | disposition home or self-care (01) ==
PROVIDERS: Emergency Provider Nurse Practitioner Acute Care; PCP Family Medicine
DX: R19.5 Other fecal abnormalities (principal); R10.9 Unspecified abdominal pain; Z87.440 Personal history of urinary (tract) infections
CPT/HCPCS: 36415; 80053; 87329; 87493; 87505; 96361; 96374; 99284; 81003; 83630; 83735; 85025; 87177; 99283; J2405

== ENCOUNTER 2021-05-14 10:26 | Outpatient (REF) | payer MEDICARE, SELFPAY ==
[2021-05-15 12:40] LABS: C Diff PCR Negative (Negative)
== END 2021-05-14 10:27 | disposition home or self-care (01) ==
LOC: LBN 10:26
PROVIDERS: PCP Family Medicine; Visit Provider Family Medicine
DX: R19.7 Diarrhea, unspecified (principal)
CPT/HCPCS: 87329; 87493

== ENCOUNTER 2021-05-16 03:03 | Outpatient (CLI) | payer MEDICARE, SELFPAY ==
[2021-05-16 12:23] LABS: Abs Immature Grans 0.01 10^3/uL (0.0-0.06); Absolute Basophil Count 0.05 10^3/uL (0.0-0.2); Absolute Eosinophil Count 0.13 10^3/uL (0.0-0.7); Absolute Neutrophil Count 3.19 10^3/uL (1.2-6.7); Eosinophils % 2.6; HCT 44.4 % (36.0-46.0); HGB 13.8 g/dL (11.2-15.7); Immature Grans % 0.2; Lymphocytes % 23.6; MCHC 31.1 % (32.0-36.0); MCV 90.1 fL (80-95); MPV 11.1 fL (8.0-11.0); Monocytes % 9.8; Neutrophils % 62.8; Nucleated RBC 0 %; Platelet Count 240 10^3/uL (130-400); RBC 4.93 10^6/uL (3.93-5.22); RDW 12.7 % (11.7-14.6); RDW-SD 41.9 fL; WBC 5.08 10^3/uL (4.4-10.8)
[2021-05-16 12:36] LABS: Iron 89 ug/dL (50-170)
[2021-05-16 12:37] LABS: ESR 8 mm/hr (0-30)
[2021-05-16 12:52] LABS: Ferritin 71 ng/mL (8-252)
[2021-05-16 13:01] LABS: C-Reactive Protein 0.98 mg/dL (0.0-0.3)
== END 2021-05-16 03:04 | disposition home or self-care (01) ==
LOC: LOS 03:03
PROVIDERS: PCP Family Medicine; Visit Provider Family Medicine
DX: D50.9 Iron deficiency anemia, unspecified (principal); R19.7 Diarrhea, unspecified
CPT/HCPCS: 36415; 85027; 85652; 82728; 83540; 85025; 86140

== ENCOUNTER 2021-09-07 02:43 | Outpatient (CLI) | payer MEDICARE, SELFPAY ==
[2021-09-07 10:13] LABS: Bilirubin Negative (Negative); Blood Negative (Negative); Clarity Sl Cloudy (Clear); Glucose Negative (Negative); Ketones Negative (Negative); Leukocyte Esterase Negative (Negative); Nitrite Positive (Negative); Specific Gravity 1.025 (1.005-1.025); Urobilinogen 0.2 EU/dL (Up TO 0.2)
[2021-09-07 10:22] LABS: Abs Immature Grans 0.01 10^3/uL (0.0-0.06); Absolute Basophil Count 0.05 10^3/uL (0.0-0.2); Absolute Eosinophil Count 0.13 10^3/uL (0.0-0.7); Absolute Lymphocyte Count 1.62 10^3/uL (1.2-3.4); Absolute Monocyte Count 0.47 10^3/uL (0.1-0.8); Absolute Neutrophil Count 3.36 10^3/uL (1.2-6.7); Basophils % 0.9; Eosinophils % 2.3; HCT 45.9 % (36.0-46.0); HGB 14.9 g/dL (11.2-15.7); Immature Grans % 0.2; Lymphocytes % 28.7; MCH 28.7 pg (27.0-33.0); MCHC 32.5 % (32.0-36.0); MCV 88.3 fL (80-95); Monocytes % 8.3; Neutrophils % 59.6; Nucleated RBC 0 %; Platelet Count 235 10^3/uL (130-400); RDW 12.8 % (11.7-14.6); RDW-SD 41.8 fL; WBC 5.64 10^3/uL (4.4-10.8)
[2021-09-07 10:26] LABS: Bacteria Few HPF (Negative); C & S Indicated? Yes; Crystals Negative HPF (Negative); Epithelial Cells Few HPF (Negative); Mucus Trace (Negative); RBC 0-2 HPF (0-2); WBC 0-2 HPF (0-5)
[2021-09-07 11:07] LABS: Iron 108 ug/dL (50-170)
[2021-09-07 11:23] LABS: Ferritin 59 ng/mL (8-252)
[2021-09-07 11:30] LABS: Vitamin D 25 Total 42.7 ng/mL (30-100)
== END 2021-09-07 02:44 | disposition home or self-care (01) ==
LOC: LBO 02:43
PROVIDERS: PCP Family Medicine; Visit Provider Family Medicine
DX: D50.9 Iron deficiency anemia, unspecified (principal); N39.41 Urge incontinence; E55.9 Vitamin D deficiency, unspecified
CPT/HCPCS: 36415; 82306; 81003; 81015; 82728; 83540; 85025; 87086

== ENCOUNTER 2021-11-30 04:28 | Outpatient (CLI) | payer MEDICARE, SELFPAY | END 2021-11-30 04:29 | disposition home or self-care (01) | LOC: LBO 04:28 | PROVIDERS: PCP Family Medicine; Visit Provider Family Medicine ==

== ENCOUNTER 2021-12-29 02:32 | Outpatient (CLI) | payer MEDICARE, SELFPAY ==
[2021-12-29 14:28] LABS: Abs Immature Grans 0.02 10^3/uL (0.0-0.06); Absolute Basophil Count 0.04 10^3/uL (0.0-0.2); Absolute Eosinophil Count 0.09 10^3/uL (0.0-0.7); Absolute Lymphocyte Count 1.83 10^3/uL (1.2-3.4); Absolute Monocyte Count 0.62 10^3/uL (0.1-0.8); Absolute Neutrophil Count 3.61 10^3/uL (1.2-6.7); Basophils % 0.6; Eosinophils % 1.4; HCT 44.1 % (36.0-46.0); HGB 14.2 g/dL (11.2-15.7); Immature Grans % 0.3; Lymphocytes % 29.5; MCH 29.1 pg (27.0-33.0); MCHC 32.2 % (32.0-36.0); MCV 90.4 fL (80-95); MPV 10.5 fL (8.0-11.0); Neutrophils % 58.2; Nucleated RBC 0 %; Platelet Count 233 10^3/uL (130-400); RBC 4.88 10^6/uL (3.93-5.22); RDW 12.9 % (11.7-14.6); RDW-SD 42.7 fL; WBC 6.21 10^3/uL (4.4-10.8)
[2021-12-29 14:42] LABS: Bilirubin Negative (Negative); Blood Negative (Negative); Clarity Clear (Clear); Glucose Negative (Negative); Ketones Negative (Negative); Leukocyte Esterase Small (Negative); Nitrite Negative (Negative); Specific Gravity <= 1.005 (1.005-1.025); Urobilinogen 0.2 EU/dL (Up TO 0.2)
[2021-12-29 14:43] LABS: Bacteria Negative HPF (Negative); C & S Indicated? Yes; Casts Negative LPF (Negative); Crystals Negative HPF (Negative); Epithelial Cells Rare HPF (Negative); Mucus Negative (Negative); RBC Negative HPF (0-2)
[2021-12-29 15:44] LABS: Ferritin 140 ng/mL (8-252)
== END 2021-12-29 02:33 | disposition home or self-care (01) ==
PROVIDERS: PCP Family Medicine; Visit Provider Family Medicine
DX: D50.9 Iron deficiency anemia, unspecified (principal); N39.0 Urinary tract infection, site not specified
CPT/HCPCS: 36415; 81003; 81015; 82728; 85025; 87086

== ENCOUNTER 2022-01-16 15:55 | Outpatient (REF) | payer MEDICARE, SELFPAY ==
[2022-01-18 12:33] LABS: COVID-19 RT-PCR UVMMC Result Negative (Negative)
== END 2022-01-16 15:56 | disposition home or self-care (01) ==
LOC: LBN 15:55
PROVIDERS: PCP Family Medicine; Visit Provider Family Medicine
DX: R09.81 Nasal congestion (principal); Z20.822 Contact with and (suspected) exposure to COVID-19
CPT/HCPCS: U0003; U0005

== ENCOUNTER 2022-03-12 09:24 | Outpatient (REF) | payer MEDICARE, SELFPAY ==
[2022-03-12 15:29] LABS: Bilirubin Negative (Negative); Blood Negative (Negative); Clarity Clear (Clear); Glucose Negative (Negative); Ketones Negative (Negative); Leukocyte Esterase Moderate (Negative); Nitrite Positive (Negative); Specific Gravity 1.015 (1.005-1.025); Urobilinogen 0.2 EU/dL (Up TO 0.2); pH 7.5 (5-8)
[2022-03-12 16:09] LABS: WBC 20-50 HPF (0-5)
[2022-03-12 16:10] LABS: Bacteria Many HPF (Negative); C & S Indicated? Yes; Casts Negative LPF (Negative); Crystals Negative HPF (Negative); Epithelial Cells Few HPF (Negative); Mucus Negative (Negative); RBC 0-2 HPF (0-2)
== END 2022-03-12 09:25 | disposition home or self-care (01) ==
LOC: LBN 09:24
PROVIDERS: PCP Family Medicine; Visit Provider Family Medicine
DX: R35.0 Frequency of micturition (principal)
CPT/HCPCS: 87077; 81003; 81015; 87086; 87186

== ENCOUNTER 2022-04-05 04:09 | Outpatient (CLI) | payer MEDICARE, SELFPAY ==
[2022-04-05 15:53] LABS: Abs Immature Grans 0.02 10^3/uL (0.0-0.06); Absolute Basophil Count 0.04 10^3/uL (0.0-0.2); Absolute Eosinophil Count 0.11 10^3/uL (0.0-0.7); Absolute Lymphocyte Count 1.74 10^3/uL (1.2-3.4); Absolute Monocyte Count 0.39 10^3/uL (0.1-0.8); Absolute Neutrophil Count 3.56 10^3/uL (1.2-6.7); Basophils % 0.7; Eosinophils % 1.9; HCT 43.9 % (36.0-46.0); HGB 14.4 g/dL (11.2-15.7); Immature Grans % 0.3; Lymphocytes % 29.7; MCH 28.7 pg (27.0-33.0); MCHC 32.8 % (32.0-36.0); MCV 88 fL (80-95); MPV 10.9 fL (8.0-11.0); Monocytes % 6.7; Neutrophils % 60.7; Platelet Count 220 10^3/uL (130-400); RBC 5.01 10^6/uL (3.93-5.22); RDW 12.1 % (11.7-14.6); WBC 5.86 10^3/uL (4.4-10.8)
[2022-04-05 16:48] LABS: Anion Gap 10.7 mmol/L (3-11); BUN 13 mg/dL (7-18); CO2 26.3 mmol/L (21.0-32.0); CREATININE 0.9 mg/dL (0.55-1.02); Calcium 9.1 mg/dL (8.5-10.1); Chloride 100 mmol/L (98-107); Ferritin 120 ng/mL (8-252); Glucose 121 mg/dL (74-106); Potassium 3.3 mmol/L (3.5-5.1); Sodium 137 mmol/L (136-145)
[2022-04-05 16:49] LABS: Bilirubin Negative (Negative); Blood Negative (Negative); Clarity Clear (Clear); Glucose Negative (Negative); Ketones Negative (Negative); Leukocyte Esterase Negative (Negative); Nitrite Negative (Negative); Specific Gravity >= 1.030 (1.005-1.025); Urobilinogen 0.2 EU/dL (Up TO 0.2)
== END 2022-04-05 04:10 | disposition home or self-care (01) ==
PROVIDERS: PCP Family Medicine; Visit Provider Family Medicine
DX: R19.7 Diarrhea, unspecified (principal); D64.9 Anemia, unspecified; R31.9 Hematuria, unspecified
CPT/HCPCS: 36415; 80048; 81003; 82728; 85025

== ENCOUNTER → 2022-04-19 11:04 | Outpatient (BNVA) | payer MEDICARE, SELFPAY | PROVIDERS: PCP Family Medicine; Referring Provider Family Medicine; Visit Provider Nurse Practitioner Gerontology | DX: N39.46 Mixed incontinence (principal); B96.20 Unspecified Escherichia coli [E. coli] as the cause of diseases classified elsewhere; N32.89 Other specified disorders of bladder | CPT/HCPCS: 51798; 81003; 99215 ==

== ENCOUNTER 2022-06-07 03:19 | Outpatient (CLI) | payer MEDICARE, SELFPAY ==
[2022-06-07 15:44] LABS: Abs Immature Grans 0.02 10^3/uL (0.0-0.06); Absolute Basophil Count 0.05 10^3/uL (0.0-0.2); Absolute Eosinophil Count 0.14 10^3/uL (0.0-0.7); Absolute Lymphocyte Count 2.05 10^3/uL (1.2-3.4); Absolute Monocyte Count 0.58 10^3/uL (0.1-0.8); Absolute Neutrophil Count 3.73 10^3/uL (1.2-6.7); Basophils % 0.8; Eosinophils % 2.1; HCT 43.4 % (36.0-46.0); HGB 14.3 g/dL (11.2-15.7); Immature Grans % 0.3; Lymphocytes % 31.2; MCH 28.7 pg (27.0-33.0); MCHC 32.9 % (32.0-36.0); MCV 87 fL (80-95); MPV 11.2 fL (8.0-11.0); Monocytes % 8.8; Neutrophils % 56.8; Platelet Count 223 10^3/uL (130-400); RBC 4.99 10^6/uL (3.93-5.22); RDW 13.2 % (11.7-14.6); RDW-SD 42.1 fL; WBC 6.57 10^3/uL (4.4-10.8)
[2022-06-07 16:13] LABS: Bilirubin Negative (Negative); Blood Negative (Negative); Clarity Clear (Clear); Glucose Negative (Negative); Ketones Negative (Negative); Leukocyte Esterase Negative (Negative); Nitrite Negative (Negative); Urobilinogen 0.2 EU/dL (Up TO 0.2); pH 6.5 (5-8)
[2022-06-07 16:27] LABS: ALT 34 U/L (14-59); AST 14 U/L (15-37); Albumin 3.6 g/dL (3.4-5.0); Alkaline Phosphatase 88 U/L (46-116); Anion Gap 7.4 mmol/L (3-11); BUN 11 mg/dL (7-18); Bilirubin, Total 0.2 mg/dL (0.2-1.0); CO2 28.6 mmol/L (21.0-32.0); CREATININE 0.7 mg/dL (0.55-1.02); Calcium 8.9 mg/dL (8.5-10.1); Chloride 106 mmol/L (98-107); Ferritin 94 ng/mL (8-252); Glucose 89 mg/dL (74-106); Potassium 3.5 mmol/L (3.5-5.1); Sodium 142 mmol/L (136-145); TSH (W/Ref FT4) 1.34 uIU/mL (0.36-3.74)
== END 2022-06-07 03:20 | disposition home or self-care (01) ==
LOC: LBO 03:19
PROVIDERS: PCP Family Medicine; Visit Provider Family Medicine
DX: R19.7 Diarrhea, unspecified (principal); D64.9 Anemia, unspecified; R31.9 Hematuria, unspecified
CPT/HCPCS: 36415; 80053; 81003; 82728; 84443; 85025

== ENCOUNTER → 2022-07-05 02:07 | Outpatient (CLI) | payer MEDICARE, SELFPAY ==
--- NOTE | 2022-07-05 08:00 | DI.CT_ITS ---
Exam(s) CT ABDOMEN PELVIS W EXAM: CT ABDOMEN PELVIS W INDICATION: abd pain, constipation, diarrhea, nausea, vomiting,r19.7,r19.00,r11.2. COMPARISON: CT RENAL COLIC WO CONTRAST from 07/11/2015 TECHNIQUE: FINDINGS: CT examination of the abdomen and pelvis was performed with intravenous infusion of 100 cc of Omnipaq ue 350. Images obtained through the lung bases are unremarkable. There is a large hiatal hernia which contains significant portion the stomach. The liver is unremarkable in appearance. Gallbladder and bile ducts are CT normal. Pancreas appears normal. Spleen is unremarkable in appearance. Adrenals appear normal. The kidneys are unremarkable with no evidence of hydronephrosis, nephrolithiasis, or renal mass.. Ur inary bladder unremarkable. Abdominal aorta is of normal diameter and no major vascular abnormality is seen. No significant abdominal wall hernia, there is a small fat. No abdominal or pelvic adenopathy. 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 Appendix is normal. No evidence of diverticulitis or bowel obstruction. There bilateral hip replacements which create artifact obscuring portions of pelvis. IMPRESSION: No evidence of acute intra-abdominal process. RADIATION DOSE DELIVERED: 1,316.33mGy.cm Total DLP 1,316.33mGy.cm Total DLP !Error CTDIvol RADIATION OPTIMIZATION: All CT scans at this facility use at least one of these dose optimization te chniques: automated exposure control; mA and/or kV adjustment per patient size (includes targeted exa ms where dose is matched to clinical indication); or iterative reconstruction.
[2022-07-05] MEDS: Barium Sulfate 2% W/V-Berry Smoothie 450 ML BTL PO (11:37)
[2022-07-05] MEDS: Omnipaque 350 MG/ML 500 ML BTL-Imaging package IJ (13:36)
== END ==
PROVIDERS: PCP Family Medicine; Visit Provider Family Medicine
DX: R11.2 Nausea with vomiting, unspecified (principal); R19.00 Intra-abdominal and pelvic swelling, mass and lump, unspecified site; R19.7 Diarrhea, unspecified
CPT/HCPCS: 74177

== ENCOUNTER → 2022-07-25 09:20 | Outpatient (BNVA) | payer MEDICARE, SELFPAY | PROVIDERS: PCP Family Medicine; Referring Provider Family Medicine; Visit Provider Nurse Practitioner Gerontology | DX: R32 Unspecified urinary incontinence (principal); N39.0 Urinary tract infection, site not specified | CPT/HCPCS: 51798; 81003; 99214 ==

== ENCOUNTER 2022-07-25 18:07 | Outpatient (REF) | payer MEDICARE, SELFPAY | END 2022-07-25 18:08 | disposition home or self-care (01) | LOC: LBN 18:07 | PROVIDERS: PCP Family Medicine; Visit Provider Nurse Practitioner Gerontology | DX: N39.0 Urinary tract infection, site not specified (principal); N39.3 Stress incontinence (female) (male) | CPT/HCPCS: 87077; 87086; 87186 ==

== ENCOUNTER 2022-08-20 02:58 | Outpatient (CLI) | payer MEDICARE, SELFPAY ==
[2022-08-20 18:05] LABS: Bilirubin Negative (Negative); Blood Negative (Negative); Clarity Clear (Clear); Glucose Negative (Negative); Ketones Negative (Negative); Leukocyte Esterase Negative (Negative); Nitrite Negative (Negative); Specific Gravity 1.015 (1.005-1.025); Urobilinogen 0.2 EU/dL (Up TO 0.2)
== END 2022-08-20 02:59 | disposition home or self-care (01) ==
LOC: LBO 02:58
PROVIDERS: PCP Family Medicine; Visit Provider Family Medicine
DX: R30.0 Dysuria (principal); R31.9 Hematuria, unspecified
CPT/HCPCS: 81003

== ENCOUNTER 2022-09-11 11:38 | Outpatient (CLI) | payer MEDICARE, SELFPAY ==
--- NOTE | 2022-09-11 11:30 | RT.EKG_ITS ---
APPROVED REPORT Exam: Resting ECG Reason for Exam: Newly diagnosed A-fib, diagnosed at [facility] Patient Location: O HR:100 bpm ECG Measurements Heart Rate 100 AXIS AR [id number] P [id number] QRSd 85 QRS -71 QT 336 T 71 QTc 434 Conclusion Atrial fibrillation...V-rate 83-103, irreg A-activity Abnormal R-wave progression, early transition...QRS area>0 in V2 Inferior infarct, old...Q >35mS, II III aVF
== END 2022-09-11 11:39 | disposition home or self-care (01) ==
LOC: DI.CM 11:38
PROVIDERS: PCP Family Medicine; Visit Provider Family Medicine
DX: I48.91 Unspecified atrial fibrillation (principal); R94.31 Abnormal electrocardiogram [ECG] [EKG]; I25.2 Old myocardial infarction
CPT/HCPCS: 93010

== ENCOUNTER 2022-09-12 03:10 | Outpatient (CLI) | payer MEDICARE, SELFPAY ==
[2022-09-12 09:37] LABS: Abs Immature Grans 0.02 10^3/uL (0.0-0.06); Absolute Basophil Count 0.07 10^3/uL (0.0-0.2); Absolute Eosinophil Count 0.13 10^3/uL (0.0-0.7); Absolute Lymphocyte Count 1.63 10^3/uL (1.2-3.4); Absolute Monocyte Count 0.48 10^3/uL (0.1-0.8); Absolute Neutrophil Count 3.48 10^3/uL (1.2-6.7); Basophils % 1.2; Eosinophils % 2.2; HCT 47.2 % (36.0-46.0); HGB 15.2 g/dL (11.2-15.7); Immature Grans % 0.3; Lymphocytes % 28.1; MCHC 32.2 % (32.0-36.0); MCV 87 fL (80-95); MPV 11.1 fL (8.0-11.0); Monocytes % 8.3; Neutrophils % 59.9; Platelet Count 229 10^3/uL (130-400); RBC 5.42 10^6/uL (3.93-5.22); RDW 12.9 % (11.7-14.6); RDW-SD 40.7 fL; WBC 5.81 10^3/uL (4.4-10.8)
[2022-09-12 09:39] LABS: Bilirubin Negative (Negative); Blood Negative (Negative); Clarity Clear (Clear); Glucose Negative (Negative); Ketones Negative (Negative); Leukocyte Esterase Trace (Negative); Nitrite Negative (Negative); Urobilinogen 0.2 EU/dL (Up TO 0.2)
[2022-09-12 09:47] LABS: Bacteria Few HPF (Negative); C & S Indicated? Yes; Casts Negative LPF (Negative); Crystals Negative HPF (Negative); Epithelial Cells Rare HPF (Negative); Mucus Negative (Negative); RBC Negative HPF (0-2)
[2022-09-12 10:06] LABS: Iron 87 ug/dL (50-170)
[2022-09-12 10:28] LABS: Ferritin 68 ng/mL (8-252)
== END 2022-09-12 03:11 | disposition home or self-care (01) ==
LOC: LBO 03:10
PROVIDERS: PCP Family Medicine; Visit Provider Family Medicine
DX: D64.9 Anemia, unspecified (principal); N39.0 Urinary tract infection, site not specified
CPT/HCPCS: 36415; 87077; 81003; 81015; 82728; 83540; 85025; 87086; 87186

== ENCOUNTER 2022-09-20 00:53 | Outpatient (CLI) | payer MEDICARE, SELFPAY ==
--- NOTE | 2022-09-20 07:15 | DI.NM_ITS ---
APPROVED REPORT Exam: Pharmacologic Patient Location: Out-Patient Room/Bed: Stress Nurse: Gwendolyn Hamilton RN Ordering Provider:HOMERO DECKER, Contact Number: [phone] BMI: 32.76 Baseline Rhythm: Atrial Fibrillation Indications: Chest pain, Afib Medical History Medical History: Afib, urinary incontinence, Vit D def., right foot hallux valgus, back pain, HLD, in somnia, hiatal hernia, depression, anxiety, anemia, diverticulosis Cardiac Medications: Tolterodine, quetiapine, omeprazole, loratadine, ferrous sulfate, cholecalcifero l, cephalexin, absorbic acid Allergies: Bee venom, tetracyclines, trazadone Cardiac Risk Factors: +family history, HLD Previous Cardiac Procedures: None Pretest Chest Pain Characteristics: None Exercise History: Indeterminate Physical Disabilities: mx arthralgias, osteoarthrosis, knees, hips Lung Sounds: Clear to auscultation Heart Sounds: Irregular Stress Test Details Test: Exercise stress testing was performed using a modified Cosme protocol. Nuclear Acquisition: Rest Tc-99m/Stress Tc-99m 1 day Rest Isotope: Tc-99m Sestamibi. Dose: 10.1 Date: 09/20/2022 Injection Time: 0845 Stress Isotope: Tc-99m Sestamibi. Dose: 32.8 Date: 09/20/2022 Injection Time: 1005 HR Resting HR Supine: 88 bpm Max Heart Rate (APMHR): 146.809252 bpm Resting HR Standin bpm Target HR (85% APMHR): 124.310851 bpm Max HR Achieved: 169 bpm % of APMHR: 115.75 Recovery HR: 96 bpm HR response to stress: Accelerated HR response to stress BP Resting BP Supine: 138/84 mmHg Resting BP Standin/82 mmHg Max BP: 148/80 mmHg Recovery BP: 112/84 mmHg BP response to stress: Normal blood pressure response to stress. ECG Resting ECG: Atrial Fibrillation Ectopy: None Stress ECG: Atrial Fibrillation ST Change: No significant ST segment changes noted Arrhythmia: PVC's Recovery ECG: Atrial Fibrillation Recovery ST Change: No significant ST segment changes noted Recovery Arrhythmia: PVC's Clinical Reason for Termination: Target HR Achieved Stress Symptoms: None Exercise duration: 3 min16 sec Exercise capacity: 2.38 METs Angina Score: None Rate Pressure Product: [id number] Stress ECG Conclusion 1. Electrocardiogram showed atrial fibrillation, left axis, late transition 2. Patient underwent testing using a combination of low-level exercise and regadenoson 3. Rapid heart rate response to exercise. Patient achieved greater than 100% of predicted heart rate for age 4. The electrocardiographic portion of the test was negative for myocardial ischemia 5. See MPI report Stress Test Summary STAGE Time (mins) Speed (mph) Grade (%) HR BP SpO2 SYMPTOMS METS Supine 88 138/84 Standing 97 124/82 0 3 1.7 0 160 144/80 2.3 1 min recovery 99 148/80 3 min recovery 94 132/86 6 min recovery 96 112/84 Patient presented to stress lab and it was decided to do a walking lexiscan given patients mx althral gias (hips, knee joint, disc issues). However, when patient began ambulating on the treadmill her hea rt rate quickly exceeded that of the appropriate/target rate needed for diagnostic test. Patients hea rt rate continued to excelerate and in the midst it was decided it was inappropriate to give Lexiscan considering HR was above 100% of maximum. Tracer was injected and patient proceeded to walk on the t readmill for 1 minute post tracer injection. Patient exercised for a total of 3 minutes and 16 second s at 1.8 mph, 0% grade. Heart rate with exercise reached 169 and blood pressure mid exercise was 144/ 80. Exercise was terminated 1 minute after tracer injection due to THR being exceeded. Patient tolera yue test well, no symptoms reported. MPI Conclusion Normal myocardial perfusion without evidence of ischemia or prior infarction Wall motion is normal. EF appears within the normal range Radiologist Interpretation Radiologist agrees with Curb Builder's Interpretation. Radiologist Interpretation by: Marilu Chen MD Interpretation Date/Time: 09/20/2022 16:21:26
== END 2022-09-20 01:13 ==
LOC: DI 00:54
PROVIDERS: PCP Family Medicine; Visit Provider Family Medicine
DX: I48.91 Unspecified atrial fibrillation (principal)
CPT/HCPCS: 78452; 93017

== ENCOUNTER 2022-10-19 12:46 | Outpatient (REF) | payer MEDICARE, SELFPAY ==
[2022-10-19 12:35] LABS: Bilirubin Negative (Negative); Blood Negative (Negative); Clarity Cloudy (Clear); Glucose Negative (Negative); Ketones Trace mg/dL (Negative); Leukocyte Esterase Small (Negative); Nitrite Negative (Negative); Specific Gravity 1.025 (1.005-1.025); Urobilinogen 0.2 EU/dL (Up TO 0.2); pH 5.5 (5-8)
[2022-10-19 12:49] LABS: Bacteria Many HPF (Negative); C & S Indicated? Yes; Casts Negative LPF (Negative); Crystals Negative HPF (Negative); Epithelial Cells Few HPF (Negative); Mucus Negative (Negative); RBC Negative HPF (0-2); WBC 20-50 HPF (0-5)
== END 2022-10-19 12:47 | disposition home or self-care (01) ==
LOC: LBN 12:46
PROVIDERS: PCP Family Medicine; Visit Provider Family Medicine
DX: B96.20 Unspecified Escherichia coli [E. coli] as the cause of diseases classified elsewhere (principal)
CPT/HCPCS: 87077; 81003; 81015; 87086; 87186

== ENCOUNTER 2022-10-24 01:29 | Outpatient (CLI) | payer MEDICARE, SELFPAY ==
--- NOTE | 2022-10-24 07:31 | DI.US_ITS ---
APPROVED REPORT EXAM: Comprehensive 2D, Doppler, and color-flow Echocardiogram Patient Location: Out-Patient Metal Reed Tuner: Zahra Bearden RDCS (AE) Indications: A Fib Other Information Study Quality: Adequate Conclusion Normal left ventricular wall thickness and chamber size. Estimated ejection fraction is 55 to 60%. There are no segmental wall motion abnormalities Normal right ventricular size and systolic function Left atrium is moderately dilated. Right atrial size is normal Aortic valve is trileaflet and mildly sclerotic without stenosis or regurgitation Normal mitral valve, mild mitral regurgitation Normal tricuspid valve, mild regurgitation. Estimated right ventricular systolic pressure is 21 mmHg Borderline dilated ascending aorta Wall motion Left Ventricle The left ventricle is normal size. The left ventricular systolic function is normal. The left ventric ular ejection fraction is within the normal range. There is normal left ventricular wall thickness. T here is normal LV segmental wall motion. There is no ventricular septal defect visualized. LVEF is 56 %. Right Ventricle The right ventricle is normal size. The right ventricular systolic function is normal. The RVSP is 21 .2 mmHg. Atria Left atrium is moderately dilated. The right atrium size is normal. The interatrial septum is intact with no evidence for an atrial septal defect. Aortic Valve The aortic valve is trileaflet and mildly sclerotic There is no aortic valvular stenosis. No aortic r egurgitation is present. Mitral Valve The mitral valve is normal in structure. No evidence of mitral valve stenosis. Mild mitral regurgit ation. Tricuspid Valve The tricuspid valve is normal in structure. There is no tricuspid valve stenosis. Mild tricuspid reg urgitation. Pulmonic Valve Pulmonic valve is not well visualized. There is no pulmonic valvular stenosis. There is no pulmonic v alvular regurgitation. Great Vessels The aortic root is normal in size. The ascending aorta is mildly dilated. Aortic arch is normal in ca liber. IVC is normal in size and collapses >50% with inspiration. Pericardium There is no pericardial effusion. 2D Dimensions IVSD d PLAX 0.87 cm F: 0.6-1.0 LV Vol A2C d MOD 64.6 mL LVPW d PLAX 0.88 cm F: 0.6 - 1.0 LV Vol A4C d MOD 66.2 mL LVID d PLAX 4.61 cm F: 3.8 - 5.2 LA vol/ BSA A2C s A-L 46.7 mL/m2 LVDs 3.15 cm F: 2.2 - 3.5 LA vol/ BSA A4C s A-L 34.4 mL/m2 Ao Root d 3.07 cm F: 2.7 - 3.3 LA Vol/ BSA Biplane s A-L 41.9 mL/m2 RA Area A4C 16.33 cm2 LA Area A4C s MOD 21.55 cm2 RA Vol/ BSA A4C s A-L 22.5 mL/m2 LA Area A2C s MOD 26.25 cm2 Ao Asc Diam d 3.40 cm F: 2.3 - 3.1 LV EF A4C MOD 55.1 % LV EF Teichholz 58.8 % LV EF A2C MOD 57.8 % LVEF (Reeves's) 55.41 % F: 54 - 74 LV EF Biplane MOD 55.4 % LV Volume 49.78 mL F: 46 - 106 SV 36.64 mL LV Volume Index 25.14 mL/m2 F: 29 - 61 SV Index 18.52 mL/m2 LV Vol Biplane MOD 66.1 mL FS 31.00 % M-Mode TAPSE 1.90 cm (M/F) >1.7 LV Diastology MV E' medial 0.075 (>0.07 m/s) MV E Vmax 1.05 (0.4-1.3 m/s) LV E/e MED 14.00 (<14) MV E' lateral 0.095 (>0.1 m/s) LV E/e LAT 10.95 (<14) MV E/E' medial 14.02 MV E/E' lateral 10.97 Aortic Valve LVOT Area 2.87 cm2 AoV Area Vmax 2.43 cm2 LVOT Vmax 0.99 m/s AoV Area/ BSA (Vmax) 1.23 cm2/m2 LVOT Mean Chava. 0.67 m/s KEO Mean Chava. 2.26 cm2 LVOT Peak Grad 3.9 mmHg KEO Mean Chava. Index 1.14 cm2/m2 LVOT Mean Grad 2.1 mmHg LVOT VTI 0.178 m LVOT Diam s 1.90 cm AoV Vmax 1.17 m/s Velocity Ratio 0.85 AoV Mean Chava. 0.85 m/s AoV Peak Grad 5.4 mmHg LVOT SV 51.07 mL AoV Mean Grad 3.1 mmHg AoV VTI 0.216 m AoV Area VTI 2.37 cm2 AoV Area/ BSA (VTI) 1.20 cm/m2 Mitral Valve MV DT 215 (160-240 msec) MV PHT 62 msec MV Area PHT 3.52 cm2 MV VTI 0.281 m MV Area VTI 1.82 (4.0-6.0 cm2) Pulmonary Valve PV Vmax 0.84 (0.5-1.5 m/s) RVOT Peak Gr. 1.25 mmHg PV Peak Grad 2.8 mmHg RVOT Mean Gr. 0.65 mmHg PV Mean Grad 1.6 mmHg RVOT VTI 0.111 m PV VTI 0.146 m RVOT Vmax 0.56 m/s Tricuspid Valve TR Peak Grad 18.2 mmHg TR Vmax 2.13 m/s RA Pressure 3.00 mmHg RVSP (TR) 21.2 mmHg
== END 2022-10-24 01:49 ==
LOC: DI 01:29
PROVIDERS: PCP Family Medicine; Visit Provider Family Medicine
DX: I48.91 Unspecified atrial fibrillation (principal)
CPT/HCPCS: 93306

== ENCOUNTER 2022-11-26 08:56 | Outpatient (REF) | payer MEDICARE, SELFPAY ==
[2022-11-26 09:25] LABS: Bilirubin Negative (Negative); Blood Negative (Negative); Clarity Clear (Clear); Glucose Negative (Negative); Ketones Negative (Negative); Leukocyte Esterase Negative (Negative); Nitrite Negative (Negative); Specific Gravity 1.015 (1.005-1.025); Urobilinogen 0.2 mg/dL (Up to 0.2); pH 6.5 (5-8)
== END 2022-11-26 08:57 | disposition home or self-care (01) ==
LOC: LBN 08:56
PROVIDERS: PCP Family Medicine; Visit Provider Family Medicine
DX: R39.15 Urgency of urination (principal)
CPT/HCPCS: 81003

== ENCOUNTER 2022-11-30 13:16 | Outpatient (CLI) | payer MEDICARE, SELFPAY ==
[2022-11-30 13:24] LABS: Abs Immature Grans 0.01 10^3/uL (0.0-0.06); Absolute Basophil Count 0.05 10^3/uL (0.0-0.2); Absolute Lymphocyte Count 1.97 10^3/uL (1.2-3.4); Absolute Monocyte Count 0.59 10^3/uL (0.1-0.8); Absolute Neutrophil Count 4.39 10^3/uL (1.2-6.7); Basophils % 0.7; Eosinophils % 1.4; HCT 44.9 % (36.0-46.0); HGB 14.7 g/dL (11.2-15.7); Immature Grans % 0.1; Lymphocytes % 27.7; MCH 27.8 pg (27.0-33.0); MCHC 32.7 % (32.0-36.0); MCV 85 fL (80-95); MPV 10.7 fL (8.0-11.0); Monocytes % 8.3; Neutrophils % 61.8; Platelet Count 258 10^3/uL (130-400); RBC 5.28 10^6/uL (3.93-5.22); RDW 13.7 % (11.7-14.6); RDW-SD 42.9 fL; WBC 7.11 10^3/uL (4.4-10.8)
[2022-11-30 13:56] LABS: Ferritin 74 ng/mL (8-252)
[2022-11-30 14:32] LABS: Iron 92 ug/dL (50-170)
== END 2022-11-30 13:17 | disposition home or self-care (01) ==
LOC: LBO 13:17
PROVIDERS: PCP Family Medicine; Visit Provider Family Medicine
DX: D64.9 Anemia, unspecified (principal)
CPT/HCPCS: 36415; 82728; 83540; 85025

== ENCOUNTER 2022-12-10 12:03 | Outpatient (REF) | payer MEDICARE, SELFPAY ==
--- NOTE | 2022-12-10 11:30 | PAPFT_PTH ---
PATIENT: [employer] LOC: [facility] U#:[id number] AGE/SX: 76/F ROOM: RE12/10/[address]: Mariluz Watts MD, DC : 1945 BED: DIS: 12/10/2022 SPEC #: [id number] RECD: 12/11/22 12:56 STATUS: LOU REQ #: [id number] KVNG: 12/10/22 11:[address]: Mariluz Watts DEPT: [facility] Cytology RECD BY: Adela Mesa Tissues: 1 - CX/ENDOCX FOR PAP SMEARS Procedures: PAP THIN PREP/UVM Screening HPV DNA PROBE Comments: [id number]
== END 2022-12-10 12:04 | disposition home or self-care (01) ==
LOC: LBN 12:03
PROVIDERS: PCP Family Medicine; Visit Provider Family Medicine
DX: Z11.51 Encounter for screening for human papillomavirus (HPV) (principal); Z01.419 Encounter for gynecological examination (general) (routine) without abnormal findings
CPT/HCPCS: 88142; 87624

== ENCOUNTER → 2023-01-17 15:45 | Outpatient (BNVA) | payer MEDICARE, SELFPAY | PROVIDERS: PCP Family Medicine; Visit Provider Nurse Practitioner Gerontology | DX: N39.46 Mixed incontinence (principal); Z87.440 Personal history of urinary (tract) infections; Z87.442 Personal history of urinary calculi | CPT/HCPCS: 51798; 99213 ==

== ENCOUNTER 2023-02-28 04:50 | Outpatient (CLI) | payer MEDICARE, SELFPAY ==
[2023-02-28 15:40] LABS: Abs Immature Grans 0.03 10^3/uL (0.0-0.06); Absolute Basophil Count 0.05 10^3/uL (0.0-0.2); Absolute Eosinophil Count 0.12 10^3/uL (0.0-0.7); Absolute Lymphocyte Count 2.35 10^3/uL (1.2-3.4); Absolute Monocyte Count 0.61 10^3/uL (0.1-0.8); Absolute Neutrophil Count 4.35 10^3/uL (1.2-6.7); Basophils % 0.7; Eosinophils % 1.6; HGB 14.3 g/dL (11.2-15.7); Immature Grans % 0.4; Lymphocytes % 31.3; MCH 28.1 pg (27.0-33.0); MCHC 32.5 % (32.0-36.0); MCV 86 fL (80-95); MPV 10.8 fL (8.0-11.0); Monocytes % 8.1; Neutrophils % 57.9; Platelet Count 285 10^3/uL (130-400); RBC 5.09 10^6/uL (3.93-5.22); RDW 13.5 % (11.7-14.6); RDW-SD 42.7 fL; WBC 7.51 10^3/uL (4.4-10.8)
[2023-02-28 15:45] LABS: Bilirubin Negative (Negative); Blood Negative (Negative); Clarity Clear (Clear); Glucose Negative (Negative); Ketones Negative (Negative); Leukocyte Esterase Small (Negative); Nitrite Positive (Negative); Specific Gravity 1.015 (1.005-1.025); Urobilinogen 0.2 mg/dL (Up to 0.2)
[2023-02-28 16:06] LABS: Bacteria Many HPF (Negative); Epithelial Cells Rare HPF (Negative); RBC 0-2 HPF (0-2)
[2023-02-28 16:07] LABS: C & S Indicated? Yes; Casts Negative LPF (Negative); Crystals Negative HPF (Negative); Mucus Negative (Negative)
[2023-02-28 16:19] LABS: Ferritin 99 ng/mL (8-252)
[2023-02-28 16:23] LABS: Iron 42 ug/dL (50-170)
== END 2023-02-28 04:51 | disposition home or self-care (01) ==
LOC: LBO 04:51
PROVIDERS: PCP Family Medicine; Visit Provider Family Medicine
DX: D64.9 Anemia, unspecified (principal); N39.0 Urinary tract infection, site not specified
CPT/HCPCS: 36415; 87077; 81003; 81015; 82728; 83540; 85025; 87086; 87186

== ENCOUNTER 2023-03-18 13:47 | Outpatient (REF) | payer MEDICARE, SELFPAY ==
[2023-03-18 17:18] LABS: Bilirubin Negative (Negative); Blood Negative (Negative); Clarity Clear (Clear); Glucose Negative (Negative); Ketones Negative (Negative); Leukocyte Esterase Negative (Negative); Nitrite Negative (Negative); Specific Gravity 1.015 (1.005-1.025); Urobilinogen 0.2 mg/dL (Up to 0.2)
== END 2023-03-18 13:48 | disposition home or self-care (01) ==
LOC: LBN 13:47
PROVIDERS: PCP Family Medicine; Visit Provider Family Medicine
DX: N39.46 Mixed incontinence (principal); R39.89 Other symptoms and signs involving the genitourinary system
CPT/HCPCS: 81003

== ENCOUNTER → 2023-05-02 10:02 | Outpatient (BNVA) | payer MEDICARE, SELFPAY | PROVIDERS: PCP Family Medicine; Visit Provider Nurse Practitioner Gerontology | DX: N39.46 Mixed incontinence (principal); Z87.442 Personal history of urinary calculi; Z87.440 Personal history of urinary (tract) infections | CPT/HCPCS: 51798; 99213 ==

== ENCOUNTER 2023-05-03 00:55 | Outpatient (CLI) | payer MEDICARE, SELFPAY ==
--- NOTE | 2023-05-03 07:30 | DI.RAD_ITS ---
Exam(s) XR SHOULDER RT COMPLETE 2+V EXAM: XR SHOULDER RT COMPLETE 2+V CLINICAL HISTORY: shoulder pain RT, M25.511. TECHNIQUE: 2D digital imaging was performed. Five views. COMPARISON: No exams were available for comparison FINDINGS: BONES: No acute fracture is present. No bony destructive lesion is seen. JOINTS: No dislocation present. [id number] spurring at the AC joint and glenohumeral joint. G lenohumeral joint space is maintained. SOFT TISSUE: Normal. The visualized portion of the right lung appear clear. IMPRESSION: Degenerative changes. No acute abnormality. DATA REPOSITORY: RADIATION DOSE DELIVERED:
== END 2023-05-03 01:15 ==
LOC: DI 00:55
PROVIDERS: PCP Family Medicine; Visit Provider Family Medicine
DX: M25.511 Pain in right shoulder (principal)
CPT/HCPCS: 73030

== ENCOUNTER 2023-05-09 18:46 | Outpatient (REF) | payer MEDICARE, SELFPAY ==
[2023-05-09 16:52] LABS: Bilirubin Negative (Negative); Blood Negative (Negative); Clarity Sl Cloudy (Clear); Glucose Negative (Negative); Ketones Negative (Negative); Leukocyte Esterase Small (Negative); Nitrite Positive (Negative); Urobilinogen 0.2 mg/dL (Up to 0.2); pH 6.5 (5-8)
[2023-05-09 18:07] LABS: Bacteria Many HPF (Negative); Epithelial Cells Few HPF (Negative); WBC 20-50 HPF (0-5)
[2023-05-09 18:08] LABS: C & S Indicated? Yes; Crystals Negative HPF (Negative); Mucus Negative (Negative)
== END 2023-05-09 18:47 | disposition home or self-care (01) ==
LOC: LBN 18:46
PROVIDERS: PCP Family Medicine; Visit Provider Family Medicine
DX: N39.0 Urinary tract infection, site not specified (principal)
CPT/HCPCS: 87077; 81003; 81015; 87086; 87186

== ENCOUNTER 2023-06-06 04:17 | Outpatient (CLI) | payer MEDICARE, SELFPAY ==
[2023-06-06 14:49] LABS: Abs Immature Grans 0.02 10^3/uL (0.0-0.06); Absolute Basophil Count 0.07 10^3/uL (0.0-0.2); Absolute Eosinophil Count 0.13 10^3/uL (0.0-0.7); Absolute Lymphocyte Count 2.34 10^3/uL (1.2-3.4); Absolute Monocyte Count 0.61 10^3/uL (0.1-0.8); Basophils % 0.9; Eosinophils % 1.7; HCT 45.3 % (36.0-46.0); HGB 14.8 g/dL (11.2-15.7); Immature Grans % 0.3; Lymphocytes % 30.5; MCHC 32.7 % (32.0-36.0); MCV 89 fL (80-95); MPV 10.8 fL (8.0-11.0); Neutrophils % 58.6; Platelet Count 277 10^3/uL (130-400); RBC 5.11 10^6/uL (3.93-5.22); RDW 13.6 % (11.7-14.6); RDW-SD 44.4 fL; WBC 7.67 10^3/uL (4.4-10.8)
[2023-06-06 14:51] LABS: Bilirubin Negative (Negative); Blood Negative (Negative); Clarity Clear (Clear); Glucose Negative (Negative); Ketones Trace mg/dL (Negative); Leukocyte Esterase Negative (Negative); Nitrite Negative (Negative); Specific Gravity 1.025 (1.005-1.025); Urobilinogen 0.2 mg/dL (Up to 0.2); pH 5.5 (5-8)
[2023-06-06 15:25] LABS: Ferritin 91 ng/mL (8-252)
[2023-06-06 15:58] LABS: Iron 74 ug/dL (50-170)
== END 2023-06-06 04:18 | disposition home or self-care (01) ==
PROVIDERS: PCP Family Medicine; Visit Provider Family Medicine
DX: D64.9 Anemia, unspecified (principal)
CPT/HCPCS: 36415; 81003; 82728; 83540; 85025

== ENCOUNTER 2023-07-04 14:54 | Outpatient (REF) | payer MEDICARE, SELFPAY ==
[2023-07-04 16:41] LABS: Bilirubin Negative (Negative); Blood Negative (Negative); Clarity Clear (Clear); Glucose Negative (Negative); Ketones Negative (Negative); Leukocyte Esterase Negative (Negative); Nitrite Negative (Negative); Urobilinogen 0.2 mg/dL (Up to 0.2)
== END 2023-07-04 14:55 | disposition home or self-care (01) ==
LOC: LBN 14:54
PROVIDERS: PCP Family Medicine; Visit Provider Family Medicine
DX: N39.0 Urinary tract infection, site not specified (principal)
CPT/HCPCS: 81003

== ENCOUNTER → 2023-07-30 09:42 | Outpatient (BNVA) | payer MEDICARE, SELFPAY | PROVIDERS: PCP Family Medicine; Referring Provider Family Medicine; Visit Provider Student in an Organized Health Care Education/Training Program | DX: M19.011 Primary osteoarthritis, right shoulder (principal) | CPT/HCPCS: 20610; 99213; J1030 ==

== ENCOUNTER 2023-08-23 10:44 | Outpatient (REF) | payer MEDICARE, SELFPAY ==
[2023-08-23 11:50] LABS: Bilirubin Negative (Negative); Blood Trace-intact (Negative); Clarity Clear (Clear); Glucose Negative (Negative); Ketones Negative (Negative); Leukocyte Esterase Small (Negative); Nitrite Negative (Negative); Specific Gravity 1.015 (1.005-1.025); Urobilinogen 0.2 mg/dL (Up to 0.2)
[2023-08-23 11:57] LABS: Bacteria Rare HPF (Negative); Casts Negative LPF (Negative); Crystals Negative HPF (Negative); Epithelial Cells Few HPF (Negative); Mucus Negative (Negative); Other Cells Few Renal (Negative); RBC 0-2 HPF (0-2)
[2023-08-23 11:58] LABS: C & S Indicated? Yes
== END 2023-08-23 10:45 | disposition home or self-care (01) ==
LOC: LBN 10:44
PROVIDERS: PCP Family Medicine; Visit Provider Family Medicine
DX: D50.9 Iron deficiency anemia, unspecified (principal); N32.89 Other specified disorders of bladder; R32 Unspecified urinary incontinence; R79.0 Abnormal level of blood mineral
CPT/HCPCS: 87077; 81003; 81015; 87086; 87186

== ENCOUNTER 2023-08-29 01:46 | Outpatient (RCR) | payer MEDICARE, SELFPAY ==
[2023-08-29] MEDS: SODIUM FER. GLUC./SUC. 125 MG in Normal Saline 100 ML 110 MG IVPB (09:05)
[2023-08-29] MEDS: Normal Saline Flush 10 ML SYR IVP (09:06)
== END 2023-08-29 23:59 | disposition home or self-care (01) ==
LOC: INF 01:46
PROVIDERS: PCP Family Medicine; Visit Provider Family Medicine
DX: D50.9 Iron deficiency anemia, unspecified (principal)
CPT/HCPCS: 96365; J2916

== ENCOUNTER 2023-09-07 10:11 | Outpatient (REF) | payer MEDICARE, SELFPAY ==
[2023-09-07 10:43] LABS: Bilirubin Negative (Negative); Blood Negative (Negative); Clarity Sl Cloudy (Clear); Glucose Negative (Negative); Ketones Negative (Negative); Leukocyte Esterase Trace (Negative); Nitrite Negative (Negative); Specific Gravity 1.025 (1.005-1.025); Urobilinogen 0.2 mg/dL (Up to 0.2); pH 5.5 (5-8)
[2023-09-07 10:51] LABS: Bacteria Rare HPF (Negative); C & S Indicated? Yes; Casts Negative LPF (Negative); Crystals Negative HPF (Negative); Epithelial Cells Few HPF (Negative); Mucus Trace (Negative); RBC Negative HPF (0-2); WBC 0-2 HPF (0-5)
== END 2023-09-07 10:12 | disposition home or self-care (01) ==
LOC: LBN 10:11
PROVIDERS: PCP Family Medicine; Visit Provider Family Medicine
DX: N39.0 Urinary tract infection, site not specified (principal)
CPT/HCPCS: 81003; 81015; 87086

== ENCOUNTER 2023-09-12 13:43 | Outpatient (REF) | payer MEDICARE, SELFPAY ==
[2023-09-12 13:54] LABS: Bilirubin Negative (Negative); Blood Negative (Negative); Clarity Clear (Clear); Glucose Negative (Negative); Ketones Negative (Negative); Leukocyte Esterase Negative (Negative); Nitrite Negative (Negative); Specific Gravity 1.015 (1.005-1.025); Urobilinogen 0.2 mg/dL (Up to 0.2); pH 5.5 (5-8)
== END 2023-09-12 13:44 | disposition home or self-care (01) ==
LOC: LBN 13:43
PROVIDERS: PCP Family Medicine; Visit Provider Family Medicine
DX: N39.0 Urinary tract infection, site not specified (principal)
CPT/HCPCS: 81003

== ENCOUNTER 2023-09-19 02:43 | Outpatient (RCR) | payer MEDICARE, SELFPAY ==
[2023-09-05] MEDS: SODIUM FER. GLUC./SUC. 125 MG in Normal Saline 100 ML 110 MG IVPB (09:19)
[2023-09-05] MEDS: Normal Saline Flush 10 ML SYR IVP (09:20)
[2023-09-12] MEDS: SODIUM FER. GLUC./SUC. 125 MG in Normal Saline 100 ML 110 MG IVPB (09:28)
[2023-09-19] MEDS: Normal Saline Flush 10 ML SYR IVP (09:05)
[2023-09-19] MEDS: SODIUM FER. GLUC./SUC. 125 MG in Normal Saline 100 ML 110 MG IVPB (09:12)
== END 2023-09-29 23:59 | disposition home or self-care (01) ==
LOC: INF 02:43
PROVIDERS: PCP Family Medicine; Visit Provider Family Medicine
DX: D50.9 Iron deficiency anemia, unspecified
CPT/HCPCS: 96365; J2916

== ENCOUNTER → 2023-10-01 08:00 | Outpatient (BNVA) | payer MEDICARE, SELFPAY | PROVIDERS: PCP Family Medicine; Referring Provider Family Medicine; Visit Provider Urology | DX: N39.41 Urge incontinence (principal) | CPT/HCPCS: 99215 ==

== ENCOUNTER → 2023-10-02 09:20 | Outpatient (BNVA) | payer MEDICARE, SELFPAY | PROVIDERS: PCP Family Medicine; Referring Provider Family Medicine; Visit Provider Student in an Organized Health Care Education/Training Program | DX: M19.011 Primary osteoarthritis, right shoulder (principal) | CPT/HCPCS: 99213 ==

== ENCOUNTER 2023-10-07 04:23 | Outpatient (CLI) | payer MEDICARE, SELFPAY ==
[2023-10-07 15:45] LABS: HCT 44.8 % (36.0-46.0); HGB 14.6 g/dL (11.2-15.7); MCH 28.9 pg (27.0-33.0); MCHC 32.6 % (32.0-36.0); MCV 89 fL (80-95); MPV 11.7 fL (8.0-11.0); Platelet Count 265 10^3/uL (130-400); RBC 5.06 10^6/uL (3.93-5.22); RDW-SD 45.3 fL; WBC 7.45 10^3/uL (4.4-10.8)
[2023-10-07 15:46] LABS: Bilirubin Negative (Negative); Blood Negative (Negative); Clarity Sl Cloudy (Clear); Glucose Negative (Negative); Ketones Negative (Negative); Leukocyte Esterase Trace (Negative); Nitrite Negative (Negative); Specific Gravity 1.025 (1.005-1.025); Urobilinogen 0.2 mg/dL (Up to 0.2)
[2023-10-07 15:52] LABS: Bacteria Many HPF (Negative); Crystals Negative HPF (Negative); Epithelial Cells Rare HPF (Negative); Mucus Negative (Negative); RBC Negative HPF (0-2); WBC 20-50 HPF (0-5)
[2023-10-07 15:53] LABS: C & S Indicated? Yes; Casts Negative LPF (Negative)
[2023-10-07 16:44] LABS: AST 10 U/L (15-37); Albumin 3.8 g/dL (3.4-5.0); Alkaline Phosphatase 70 U/L (46-116); Anion Gap 12.9 mmol/L (3-11); BUN 11 mg/dL (7-18); Bilirubin, Total 0.4 mg/dL (0.2-1.0); CO2 23.1 mmol/L (21.0-32.0); CREATININE 0.8 mg/dL (0.55-1.02); Calcium 9.7 mg/dL (8.5-10.1); Chloride 103 mmol/L (98-107); Estimated GFR 76.79 (mL/min/1.73m2); Glucose 110 mg/dL (74-106); Potassium 4.1 mmol/L (3.5-5.1); Sodium 139 mmol/L (136-145); Total Protein 7.2 g/dL (6.4-8.2)
[2023-10-07 16:45] LABS: Hemoglobin A1C 5.7 % (<5.7)
[2023-10-07 17:00] LABS: ALT 24 U/L (14-59)
[2023-10-09 17:37] LABS: Lab Add On Test DONE
[2023-10-09 18:04] LABS: Ferritin 377 ng/mL (8-252)
== END 2023-10-07 04:24 | disposition home or self-care (01) ==
LOC: LBO 04:23
PROVIDERS: PCP Family Medicine; Visit Provider Family Medicine
DX: I10 Essential (primary) hypertension; N32.89 Other specified disorders of bladder; R32 Unspecified urinary incontinence; R79.0 Abnormal level of blood mineral; E11.9 Type 2 diabetes mellitus without complications; D50.9 Iron deficiency anemia, unspecified
CPT/HCPCS: 36415; 80053; 85027; 87077; 81003; 81015; 82728; 83036; 87086; 87186

== ENCOUNTER 2023-10-28 07:03 | Day surgery (SDC) | payer MEDICARE, SELFPAY ==
[2023-10-28 07:18] VITALS: BP 101/71; PULSE 87; RESP 16; TEMP 36.6; O2SAT 97
[2023-10-28] MEDS: Sulfameth/Trimeth DS TAB 1 TAB PO (07:40)
[2023-10-28] MEDS: Lactated Ringers 1,000 ML 80 ML IV (07:55)
--- NOTE | 2023-10-28 08:06 | W.PM.HP.N ---
Date of service: 10/28/23 Time of Service: 08:07 Assessment and Plan Assessment and plan (1) Urinary incontinence: Status: Acute Assessment and plan: Her urgency incontinence is due to an overactive bladder. We will move ahead with cystoscopy and injection of Botox into the detrusor muscle. Qualifiers: Urinary Incontinence type: urge incontinence Qualified Code(s): N39.41 - Urge incontinence History of Present Illness History of Present Illness Chief Complaint: Overactive bladder Narrative: This is a 77-year-old woman who was last seen in our office for urgency incontinence about 4 months ago. She has been on Vesicare 10 mg daily with variable results. She has no reported side effects. In the past, she has been on multiple other anticholinergics. She had also been on Myrbetriq with minimal improvement. She wears an average of 8 pads per day. She does have good days but can not tell exactly why they occur. She has tried pelvic floor physical therapy both here at [facility] and at [facility]. She continues to have positive cultures but does not always develop classic UTI symptoms. She completed a course of antibiotics in the last week or two. She does have a history of kidney stones with sepsis. Her stones were not struvite based. Her last CT scan was done about 15 months ago and no stones were seen. She does not leak with a Valsalva maneuver. She describes bladder spasms and gushes of urine when she is incontinent. She is to the point where her incontinence is stopping her from traveling and visiting family. She is agreeable to an injection of Botox into the detrusor muscle She is not seeing any gross hematuria. She has no dysuria at this time. She is not a candidate for hormone replacement therapy given her breast cancer. Review of Systems Narrative: No fevers or chills No vision change or dysphasia No diabetes or thyroid dysfunction Sleep apnea. No hemoptysis Hx atrial fibrillation. No chest pain Hiatal hernia. No hepatitis, ulcers, jaundice No seizures, strokes or peripheral neuropathy No bleeding disorders No gout PFSH All Active Problems Memory changes (Acute) Recurrent UTI (Chronic 12/31/17) Low ferritin (Acute) Arthritis of right glenohumeral joint (Acute) Sleep apnea (Acute) Shoulder pain, right (Acute) Bleeding disorder (Acute) Atrial fibrillation (Chronic) Urinary incontinence (Acute) Vitamin D deficiency (Acute) Hallux valgus (acquired), right foot (Acute) Encounter for annual physical exam (Acute) Bladder irritability (Acute) Hypercholesteremia (Acute) Hiatal hernia (Chronic) Depression (Chronic) Iron deficiency anemia (Chronic) thought to be secondary to large hiatal hernia; requires lifelong iron and PPI Anxiety (Chronic) 12/31/17 OPAL-7 SCORE=12 Generalized osteoarthrosis (Chronic) right hip-extensive and severe DJD w/ acetabular FX-right hip replacement DJD L5-S1 Increased body mass index (Chronic) Vaginal atrophy (Chronic 07/25/15) Medical History Primary insomnia (09/12/15) Disorder of skin skin sensitivities-poison oak/giovany; poison giovany-staph inf. Gastrointestinal hemorrhage 09/30/05 Vertigo 12/06/11 Acute upper respiratory infection 12/01/[address] scan of the sinus Metatarsalgia 06/25/13 surgery 09/2013 Dupuytren's disease 07/03/13 Sepsis due to urinary tract infection 07/25/15 stone Degeneration of intervertebral disc (06/16/13) L5-S1 Depressive disorder (05/10/09) Diverticulosis of colon without diverticulitis 2000; 2006; 2011, 02/2017, 08/2022 Internal hemorrhoids Knee pain left; MRI 09/03-posterior horn meniscal tear and decrease cartilage Malignant neoplasm of female breast metastatic Marfan syndrome Polyp of colon per colonoscopy 2006; Reflux gastritis (09/14/14) Urgency incontinence (02/12/17) Vitamin D deficiency (07/16/08) Surgical History History of eyelid surgery Bilateral H/O cystoscopy S/P tonsillectomy Ligation of fallopian tube (~1993) Total replacement of hip 2004 RIGHT;2010 LEFT Tonsillectomy Meniscectomy 2005 LEFT KNEE GLASS REMOVAL 1970 RIGHT KNEE Colonoscopy - IV Sedation (02/29/12) 2000,2006, 2011,2016, 08/2022 Family History Mother , LEUKEMIA at age 87. CLL (chronic lymphocytic leukemia) Arthritis Father , UNKNOWN at age 93. Dementia Hyperlipidemia Brother Diabetes TYPE 2 Kidney disease Maternal Grandfather No problems noted. Paternal Grandfather Prostate cancer Maternal Grandmother Heart disease Son Asthma Social History (Updated 12/18/22 @ 19:52 by Mariluz Watts MD, [place]) Smoking/Tobacco Use Status: Former Tobacco Use tobacco type: cigarettes Quit Date: 09/30/1968 Tobacco: How many years used: 3 Second Hand Exposure: No Smoking risk assessment performed?: Yes Alcohol Intake: former Drug use: Never Substance use type: does not use and other Details: marijuana for sleep in past Details: occasionally edible for sleep aide Household members: family and children Housing: house Communication Needs: None Do you need help understanding health information?: Always Pets and animals: Yes Pets and animals: dog(s) and other Sexually active: No Do you think of yourself as: Asexual Current gender identity: female What is your relationship status?: How often do you talk on the phone with friends or family?: three or more times per week How often do you get together with friends or relatives?: three or more times per week Do you belong to any clubs or organized social groups?: yes Panel score (0-1 are the most socially isolated patients): 2 What type of physical activity do you participate in: walking, aerobic and bicycling Duration: 30-45 minutes/day Frequency: 5-6 times per week Eliza/Holiness: No preference Special eliza needs: No Seatbelt use: always Helmet use: Yes Helmet use: always Drive intox or ride w/intox non emergency services ambulance driver: No Do you feel safe at home: Yes Do you feel safe in your relationship?: Yes Meds Allergies and Home Medications Allergies Allergy/AdvReac Type Severity Reaction Status Date / Time bee venom protein (honey bee) Allergy Severe Anaphylaxsi Verified 10/28/23 07:32 s Tetracyclines Allergy Severe Anaphylaxsi Verified 10/28/23 07:32 s trazodone AdvReac Severe Psychosis Verified 10/28/23 07:32 Home Medications Medication Instructions Recorded Confirmed Type ascorbic acid (vitamin C) 500 mg 500 mg PO DAILY 04/05/20 10/28/23 History capsule acetaminophen 500 mg tablet 1,000 mg PO TID 05/02/21 10/28/23 History (Tylenol Extra Strength) calcium carbonate 333 mg-magnesium 1 tab PO DAILY 05/02/21 10/28/23 History oxide 133 mg-zinc sulf 5 mg tablet cholecalciferol (vitamin D3) 25 4,000 unit PO DAILY 05/02/21 10/28/23 History mcg (1,000 unit) capsule clindamycin phosphate 1 % topical 1 applic topical DAILY PRN eczema 10/10/21 10/28/23 Rx solution #60 mL metronidazole 1 % topical gel 1 applic topical DAILY PRN rosacea 10/10/21 10/28/23 Rx (Metrogel) #180 grams mupirocin 2 % topical ointment 1 applic topical BID PRN rash #15 10/10/21 10/28/23 Rx grams escitalopram oxalate 20 mg tablet 20 mg PO DAILY #90 tabs 12/05/22 10/28/23 Rx omeprazole 20 mg capsule,delayed 20 mg PO DAILY #90 caps 12/05/22 10/28/23 Rx release solifenacin 10 mg tablet 10 mg PO DAILY #90 tabs 12/13/22 10/28/23 Rx ferrous sulfate 100 mg PO DAILY #100 tabs 12/18/22 10/28/23 Rx azelaic acid 15 % topical gel 1 applic topical DIRECTED 04/25/23 10/28/23 History rosacea Mounjaro 2.5 mg/0.5 mL 2.5 mg (0.5 mL) subcut QWEEK 4 07/10/23 10/25/23 Rx subcutaneous pen injector weeks #2 mL (tirzepatide) magnesium oxide 400 mg PO DAILY 10/02/23 10/28/23 History melatonin 5 mg tablet 5 mg PO HS PRN 10/02/23 10/28/23 History Exam Const General: cooperative Neck Neck: supple Resp Auscultation: clear to auscultation bilaterally Cardio Rate: regular rate Rhythm: regular rhythm GI Palpation: soft Neuro General: patient alert, patient awake and patient oriented x3 Results Last Vital Signs Temp 36.6 C 10/28/23 07:18 Pulse 87 10/28/23 07:18 Resp 16 10/28/23 07:18 BP 101/71 10/28/23 07:18 Pulse Ox 97 10/28/23 07:18 Time Spent Time spent with Patient: <40 minutes Time was spent: other
--- NOTE | 2023-10-28 08:12 | ANES.PREOP_ITS ---
General Info Date of Service Date Performed: 10/28/23 Height: 5 ft 5 in Weight: 85.8 kg Body Mass Index (BMI): 31.4 Surgical Procedure: Operation Date: 10/28/23 08:55 Proposed Procedure Side Surgeon p Cystoscopy/Transurethral Injection of Botox Kings Wyatt MD Meds Allergies and Home Medications Allergies Allergy/AdvReac Type Severity Reaction Status Date / Time bee venom protein (honey bee) Allergy Severe Anaphylaxsi Verified 10/28/23 07:32 s Tetracyclines Allergy Severe Anaphylaxsi Verified 10/28/23 07:32 s trazodone AdvReac Severe Psychosis Verified 10/28/23 07:32 Home Medication Medication Instructions Recorded ascorbic acid (vitamin C) 500 mg 500 mg PO DAILY 04/05/20 capsule acetaminophen 500 mg tablet 1,000 mg PO TID 05/02/21 (Tylenol Extra Strength) calcium carbonate 333 mg-magnesium 1 tab PO DAILY 05/02/21 oxide 133 mg-zinc sulf 5 mg tablet cholecalciferol (vitamin D3) 25 4,000 unit PO DAILY 05/02/21 mcg (1,000 unit) capsule clindamycin phosphate 1 % topical 1 applic topical DAILY PRN eczema 10/10/21 solution #60 mL metronidazole 1 % topical gel 1 applic topical DAILY PRN rosacea 10/10/21 (Metrogel) #180 grams mupirocin 2 % topical ointment 1 applic topical BID PRN rash #15 10/10/21 grams escitalopram oxalate 20 mg tablet 20 mg PO DAILY #90 tabs 12/05/22 omeprazole 20 mg capsule,delayed 20 mg PO DAILY #90 caps 12/05/22 release solifenacin 10 mg tablet 10 mg PO DAILY #90 tabs 12/13/22 ferrous sulfate 100 mg PO DAILY #100 tabs 12/18/22 azelaic acid 15 % topical gel 1 applic topical DIRECTED 04/25/23 rosacea Mounjaro 2.5 mg/0.5 mL 2.5 mg (0.5 mL) subcut QWEEK 4 07/10/23 subcutaneous pen injector weeks #2 mL (tirzepatide) magnesium oxide 400 mg PO DAILY 10/02/23 melatonin 5 mg tablet 5 mg PO HS PRN 10/02/23 Current Visit Medications: Current Medications Generic Name Dose Route Start Last Admin Trade Name Freq PRN Reason Stop Dose Admin OnabotulinumtoxinA 100 units/ 0 units 10/28/23 06:00 Sodium Chloride 20 ml IJ 10/28/23 16:00 TODAY DELROY Ringer's Solution 1,000 mls @ 80 mls/hr 10/28/23 06:00 10/28/23 07:55 IV 11/24/23 23:59 80 mls/hr INFUSION DELROY Administration IV Miscellaneous Supplies 1 each 10/28/23 06:00 Iv Access IV 11/24/23 23:59 DIRECTED DELROY Sodium Chloride 0 ml 10/28/23 06:00 Normal Saline Flush 10 Ml Syr IV 11/24/23 23:59 PRN PRN Sodium Chloride 0 ml 10/28/23 06:00 Normal Saline 10 Ml Vial IJ 11/24/23 23:59 DIRECTED PRN Sterile Water 0 ml 10/28/23 06:00 Water,Injection,Sterile 10 Ml Vial IJ 11/24/23 23:59 DIRECTED PRN Trimethoprim/Sulfamethoxazole 1 tab 10/28/23 06:00 10/28/23 07:40 Sulfameth/Trimeth Ds Tab PO 10/28/23 16:00 1 tab PREOP DELROY Administration PFSH Active Problems Active Problems: Problem Status Onset Code Memory changes R41.3 Recurrent UTI 12/31/17 N39.0 Low ferritin R79.0 Arthritis of right glenohumeral joint M19.011 Sleep apnea G47.30 Shoulder pain, right M25.511 Bleeding disorder D69.9 Atrial fibrillation I48.91 Urinary incontinence R32 Vitamin D deficiency E55.9 Hallux valgus (acquired), right foot M20.11 Encounter for annual physical exam Z00.00 Bladder irritability N32.89 Hypercholesteremia E78.00 Dupuytren's disease 07/03/13 M72.0 Hiatal hernia K44.9 Depression F32.9 Iron deficiency anemia D50.9 Anxiety F41.9 Condylomata acuminata in female 05/02/17 A63.0 Generalized osteoarthrosis M15.9 Increased body mass index R63.8 Vaginal atrophy 07/25/15 N95.2 Medical History Medical History Primary insomnia (09/12/15) Disorder of skin skin sensitivities-poison oak/giovany; poison giovany-staph inf. Gastrointestinal hemorrhage 09/30/05 Vertigo 12/06/11 Acute upper respiratory infection 12/01/[address] scan of the sinus Metatarsalgia 06/25/13 surgery 09/2013 Dupuytren's disease 07/03/13 Sepsis due to urinary tract infection 07/25/15 stone Degeneration of intervertebral disc (06/16/13) L5-S1 Depressive disorder (05/10/09) Diverticulosis of colon without diverticulitis 2000; 2006; 2011, 02/2017, 08/2022 Internal hemorrhoids Knee pain left; MRI 09/03-posterior horn meniscal tear and decrease cartilage Malignant neoplasm of female breast metastatic Marfan syndrome Polyp of colon per colonoscopy 2006; Reflux gastritis (09/14/14) Urgency incontinence (02/12/17) Vitamin D deficiency (07/16/08) Medical History Comments:: hx of vertigo and ringing of the ear; occasionally edible for sleep aide 2-3xweek Surgical History Surgical History History of eyelid surgery Bilateral H/O cystoscopy S/P tonsillectomy Ligation of fallopian tube (~1993) Total replacement of hip 2005 RIGHT;2010 LEFT Tonsillectomy Meniscectomy 2006 LEFT KNEE GLASS REMOVAL 1970 RIGHT KNEE Colonoscopy - IV Sedation (02/29/12) 2000,2006, 2011,2016, 08/2022 Tobacco Smoking/Tobacco Use Status: Former Tobacco Use Passive smoking exposure: No Second hand exposure: No Alcohol Alcohol Intake: former Substance Use Substance use: Never Substance use type: does not use and other Details: marijuana for sleep in past Details: occasionally edible for sleep aide Vital Signs and Lab Results Vital Signs Most Recent Vital Signs in EMR: Most Recent Vital Signs Temp Pulse Resp BP Pulse Ox 36.6 C 87 16 101/71 97 10/28/23 07:18 10/28/23 07:18 10/28/23 07:18 10/28/23 07:18 10/28/23 07:18 Lab Results Blood Type / Crossmatch: No Data to Display Complete Blood Count: White Blood Count 7.45 10^3/uL (4.4-10.8) 10/07/23 15:08 Red Blood Count 5.06 10^6/uL (3.93-5.22) 10/07/23 15:08 Hemoglobin 14.6 g/dL (11.2-15.7) 10/07/23 15:08 Hematocrit 44.8 % (36.0-46.0) 10/07/23 15:08 Platelet Count 265 10^3/uL (130-400) 10/07/23 15:08 Complete Metabolic Panel: Sodium 139 mmol/L (136-145) 10/07/23 15:08 Potassium 4.1 mmol/L (3.5-5.1) 10/07/23 15:08 Chloride 103 mmol/L (98-107) 10/07/23 15:08 Carbon Dioxide 23.1 mmol/L (21.0-32.0) 10/07/23 15:08 BUN 11 mg/dL (7-18) 10/07/23 15:08 Creatinine 0.8 mg/dL (0.55-1.02) 10/07/23 15:08 Est GFR (CKD-EPI 2020) 76.79 (mL/min/1.73m2) 10/07/23 15:08 Calcium 9.7 mg/dL (8.5-10.1) 10/07/23 15:08 Albumin 3.8 g/dL (3.4-5.0) 10/07/23 15:08 Glucose 110 mg/dL (74-106) H 10/07/23 15:08 Hemoglobin A1c 5.7 % (<5.7) 10/07/23 15:08 Liver Function Panel: Alanine Aminotransferase (ALT/SGPT) 24 U/L (14-59) 10/07/23 15: 08 Aspartate Amino Transf (AST/SGOT) 10 U/L (15-37) L 10/07/23 15: 08 Coagulation Panel: No Data to Display Cardiac Panel: No Data to Display Arterial Blood Gas: No Data to Display Venous Blood Gas: No Data to Display Pancreas Panel: No Data to Display Thyroid Panel: No Data to Display Infectious Disease: No Data to Display Blood Cultures: No Data to Display Toxicology Panel: No Data to Display Imaging and Studies Imaging and Studies Study information below may be from another EMR and interpreted by another provider. Please see original notes in EMR for more complete details. EKG Summary: 09/11/2022: Exam: Resting ECG Reason for Exam: Newly diagnosed A-fib, diagnosed at [facility] [place] Patient Location: O HR:100 bpm ECG Measurements Heart Rate 100 AXIS LA [id number] P [id number] QRSd 85 QRS -71 QT 336 T71 QTc 434 Conclusion Atrial fibrillation...V-rate 83-103, irreg A-activity Abnormal R-wave progression, early transition...QRS area>0 in V2 Inferior infarct, old...Q >35mS, II III aVF Stress Test Summary: 09/20/22: MPI Conclusion Normal myocardial perfusion without evidence of ischemia or prior infarction Wall motion is normal. EF appears within the normal range Echocardiogram Summary: 10/24/22: Conclusion Normal left ventricular wall thickness and chamber size. Estimated ejection fraction is 55 to 60%. There are no segmental wall motion abnormalities Normal right ventricular size and systolic function Left atrium is moderately dilated. Right atrial size is normal Aortic valve is trileaflet and mildly sclerotic without stenosis or regurgitation Normal mitral valve, mild mitral regurgitation Normal tricuspid valve, mild regurgitation. Estimated right ventricular systolic pressure is 21 mmHg Borderline dilated ascending aorta Anesthesia Assessment and Plan Anesthesia History Personal History: Other Family History: No Family History of Anesthesia Complications Exercise Tolerance Exercise Tolerance: Metabolic Equivalents>4 Cardiac & Pulmonary Exam Cardiac Exam: Normal S1/S2 Heart Sounds Pulmonary Exam: Clear Bilateral Breath Sounds Implantable Cardiac Device Does patient have a Pacemaker or an ICD?: No Airway Exam Known Difficult Airway: No Mallampati Class: 2 Mouth Opening: Normal (> 3cm) Thyromental Distance: Greater than 3 cm Neck Range of Motion: Limited ROM (Arthritis) Neck Circumference: Normal Teeth Condition: Normal Dentition ASA Classification ASA Score: ASA 3 Emergency Case?: No NPO Status NPO Status: NPO Clears >2 hours, Solids >8 hours Anesthesia Plan Resuscitation Status: Full Code Anesthesia Technique: MAC Anesthesia Airway Planned: Natural Airway Monitors Used: Standard Monitors Preoperative Comments:: Patient with history of hiatal hernia and discussed risk of aspiration. Furthermore, patient with history of Afib and not on anticoagulation, patient understands stroke risk and does not wish to take medi cation at this time secondary to baseline bleeding disorder. Plan for MAC anesthesia with GA backup.
[2023-10-28 08:16] VITALS: BMI 31.4
[2023-10-28 08:54] LABS: Bilirubin Negative (Negative); Blood Negative (Negative); Clarity Sl Cloudy (Clear); Glucose Negative (Negative); Ketones Negative (Negative); Leukocyte Esterase Negative (Negative); Nitrite Positive (Negative); Urobilinogen 0.2 mg/dL (Up to 0.2)
[2023-10-28 09:03] LABS: Bacteria Many HPF (Negative); C & S Indicated? Yes; Casts Negative LPF (Negative); Crystals Negative HPF (Negative); Epithelial Cells Negative HPF (Negative); Mucus Negative (Negative); Other Cells Negative (Negative); RBC Negative HPF (0-2)
[2023-10-28] MEDS: BOTULINUM TOXIN TYPE A 100 UNITS, Normal Saline 20 ML IJ (09:43)
[2023-10-28] MEDS: Lidocaine 2% Jelly 11 ML SYR (09:44)
--- NOTE | 2023-10-28 09:48 | W.PM.DSUDISC ---
Date of service: 10/28/23 Time of Service: 09:49 Discharge Plan Disposition Condition: Stable Discharge Details Reason For Visit: cystoscopy with botox injection Attending Provider: Kings Wyatt Primary Care Provider: Mariluz Watts Home Meds and New Rx's Prescriptions: No Action ascorbic acid (vitamin C) 500 mg capsule 500 mg PO DAILY calcium carb-mag ox-zinc sulf 333-133-5 mg tablet 1 tab PO DAILY Rx Instructions: administer with a meal azelaic acid 15 % gel 1 applic topical DIRECTED melatonin 5 mg tablet 5 mg PO HS PRN magnesium oxide 400 mg magnesium capsule 400 mg PO DAILY acetaminophen [Tylenol Extra Strength] 500 mg tablet 1,000 mg PO TID cholecalciferol (vitamin D3) 25 mcg (1,000 unit) capsule 4,000 unit PO DAILY ferrous sulfate 100 mg tablet 100 mg PO DAILY Qty: 100 0RF clindamycin phosphate 1 % solution 1 applic topical DAILY PRN (Reason: eczema) Qty: 60 4RF metronidazole [Metrogel] 1 % gel 1 applic Topical DAILY PRN (Reason: rosacea) Qty: 180 5RF [place] [facility] [place] mupirocin 2 % ointment 1 applic TP BID PRN (Reason: rash) Qty: 15 2RF omeprazole 20 mg capsule,delayed release(DR/EC) 20 mg PO DAILY Qty: 90 4RF escitalopram oxalate 20 mg tablet 20 mg PO DAILY Qty: 90 4RF solifenacin 10 mg tablet 10 mg PO DAILY Qty: 90 3RF Mounjaro 2.5 mg/0.5 mL pen injector 2.5 mg subcut QWEEK 28 Days Qty: 2 4RF Discharge Instructions Additional Instructions: pt already has followup appt scheduled for early October additional f/u appt 5 to 6 months Activity:: Activity as Tolerated Shower/Bathe:: 24 hours DS: Diagnosis Discharge Diagnosis (1) Urinary incontinence: Status: Acute
--- NOTE | 2023-10-28 09:53 | W.PM.OP ---
Date of service: 10/28/23 Time of Service: 09:53 Operative Note Operative Note DATE OF PROCEDURE: 10/28/23 PRE-OP DIAGNOSIS: Urgency Incontinence due to overactive bladder POST-OP DIAGNOSIS: same PROCEDURE: cystoscopy with transurethral injection of Botox into detrusor muscle SURGEON: Kings Wyatt ANESTHESIA TYPE: General:No Airway Refer to Anesthesia Record ESTIMATED BLOOD LOSS: 5 PATHOLOGY: none sent COMPLICATIONS: None Patient was transported to: same day Patient's condition: stable Implants: 100 units Botox into detrusor Indications: This is a 77-year-old woman who has a history of urinary urgency incontinence related to an overactive bladder. She has been on multiple anticholinergic medications but her symptoms have progressed. She presents now for Botox injection into the detrusor muscle Findings: No bladder tumors Procedure Description: The patient was brought to the operating room on 10/28/2023. She was given a dose of preoperative antibiotics. After successful induction of general anesthesia without intubation, she was placed in the dorsal lithotomy position. Her genitalia was prepped and draped. 2% Xylocaine jelly was instilled into the urethra to act as a local anesthetic. A 20 [place] Helen[place] urethrotome sheath was passed through the urethra into the bladder. The bladder was inspected with the 30 degree lens. Both ureteral orifices appeared normal with no blood coming from either side. No papillary or nodular lesions were seen. Using a transurethral injection system, we injected a total of 100 units of Botox submucosally. We used a grid injection pattern with 4 vertical rows and 5 horizontal rolls. We avoided the ureteral orifices and the trigone. We mixed the 100 units of Botox in 20 mL of dilute and injected a total of 1 mL in each of the 20 sites. At the completion of the procedure, the bladder was emptied and the scope was removed. She tolerated this procedure well with no complications.
[2023-10-28 10:00] VITALS: BP 105/77; PULSE 85; RESP 18; TEMP 36.2; O2SAT 94
[2023-10-28] MEDS: Phenazopyridine 200 MG TAB PO (10:17)
[2023-10-28 10:25] VITALS: BP 112/79; PULSE 80; RESP 16; TEMP 36.4; O2SAT 95
--- NOTE | 2023-10-28 12:00 | W.ANESPOSTOP ---
Postoperative Evaluation Date, Time and Location Date Performed: 10/28/23 Time Performed: 10:26 Patient Location: Day Surgery Unit Vital Signs Most Recent Imported Vital Signs: Most Recent Vital Signs Temp Pulse Resp BP Pulse Ox 36.4 C L 80 16 112/79 95 10/28/23 10:25 10/28/23 10:25 10/28/23 10:25 10/28/23 10:25 10/28/23 10:25 Pain Score Most Recent Pain Score: Most Recent Pain Score Pain Level 0 10/28/23 10:25 Assessment Mental Status: Awake (Alert & Oriented to Patient Baseline) Airway and Respiratory Function: Patent airway with normal (patient baseline) respiratory exam Cardiovascular Function: Hemodynamically Stable Hydration Status: Adequately Hydrated Nausea & Vomiting: No Nausea or Vomiting Pain: Pt. Denies Any Pain Peripheral Nerve Block: Patient did not receive a nerve block
== END 2023-10-28 10:50 | disposition home or self-care (01) ==
PROVIDERS: PCP Family Medicine; Visit Provider Urology
PROC: (CPT 52287; principal; 2023-10-28 08:45)
DX: N32.81 Overactive bladder (principal); N39.41 Urge incontinence
CPT/HCPCS: 52287; 87077; 81003; 81015; 87086; 87186; J0585; J1100; J2001; J2250; J2405; J2704; J3010

== ENCOUNTER → 2023-11-06 10:23 | Outpatient (BNVA) | payer MEDICARE, SELFPAY | PROVIDERS: PCP Family Medicine; Visit Provider Nurse Practitioner Gerontology | DX: N39.41 Urge incontinence (principal) | CPT/HCPCS: 51798; 81003; 99213 ==

== ENCOUNTER 2023-11-20 19:38 | Outpatient (REF) | payer MEDICARE, SELFPAY ==
[2023-11-20 13:43] LABS: Bilirubin Negative (Negative); Blood Negative (Negative); Clarity Clear (Clear); Glucose Negative (Negative); Ketones Negative (Negative); Leukocyte Esterase Negative (Negative); Nitrite Negative (Negative); Urobilinogen 0.2 mg/dL (Up to 0.2); pH 7.5 (5-8)
== END 2023-11-20 19:39 | disposition home or self-care (01) ==
LOC: LBN 19:38
PROVIDERS: PCP Family Medicine; Visit Provider Family Medicine
DX: R39.89 Other symptoms and signs involving the genitourinary system (principal); Z87.440 Personal history of urinary (tract) infections
CPT/HCPCS: 81003

== ENCOUNTER 2023-11-27 15:05 | Outpatient (REF) | payer MEDICARE, SELFPAY ==
[2023-11-27 12:11] LABS: Bilirubin Negative (Negative); Blood Negative (Negative); Clarity Clear (Clear); Glucose Negative (Negative); Ketones Negative (Negative); Leukocyte Esterase Negative (Negative); Nitrite Negative (Negative); Specific Gravity 1.015 (1.005-1.025); Urobilinogen 0.2 mg/dL (Up to 0.2)
== END 2023-11-27 15:06 | disposition home or self-care (01) ==
LOC: LBN 15:05
PROVIDERS: PCP Family Medicine; Referring Provider Family Medicine; Visit Provider Family Medicine
DX: N39.0 Urinary tract infection, site not specified (principal)
CPT/HCPCS: 81003

== ENCOUNTER → 2023-12-04 07:46 | Outpatient (BNVA) | payer MEDICARE, SELFPAY | PROVIDERS: PCP Family Medicine; Referring Provider Family Medicine | DX: M19.011 Primary osteoarthritis, right shoulder (principal) | CPT/HCPCS: 20610; J1030 ==

== ENCOUNTER 2023-12-12 03:05 | Outpatient (CLI) | payer MEDICARE, SELFPAY ==
[2023-12-12 16:18] LABS: Calculated LDL 56 mg/dL (<100); Cholesterol 136 mg/dL (<200); HDL Cholesterol 50 mg/dL (40-60); Triglyceride 150 mg/dL (<150)
[2023-12-12 20:34] LABS: Ferritin 427 ng/mL (8-252)
== END 2023-12-12 03:06 | disposition home or self-care (01) ==
LOC: LBO 03:05
PROVIDERS: PCP Family Medicine; Visit Provider Family Medicine
DX: I10 Essential (primary) hypertension (principal); I48.91 Unspecified atrial fibrillation; D69.9 Hemorrhagic condition, unspecified
CPT/HCPCS: 36415; 80061; 82728

== ENCOUNTER 2023-12-13 09:55 | Outpatient (REF) | payer MEDICARE, SELFPAY ==
[2023-12-13 13:30] LABS: Bilirubin Negative (Negative); Blood Negative (Negative); Clarity Clear (Clear); Glucose Negative (Negative); Ketones Negative (Negative); Leukocyte Esterase Trace (Negative); Nitrite Positive (Negative); Specific Gravity 1.025 (1.005-1.025); Urobilinogen 0.2 mg/dL (Up to 0.2)
[2023-12-13 13:58] LABS: Bacteria Many HPF (Negative); Crystals Negative HPF (Negative); Epithelial Cells Many HPF (Negative); Mucus Moderate (Negative); RBC 0-2 HPF (0-2)
[2023-12-13 13:59] LABS: C & S Indicated? No/Sq. Contamination
== END 2023-12-13 09:56 | disposition home or self-care (01) ==
LOC: LBN 09:55
PROVIDERS: PCP Family Medicine; Visit Provider Family Medicine
DX: N39.0 Urinary tract infection, site not specified (principal)
CPT/HCPCS: 81003; 81015

== ENCOUNTER 2023-12-25 04:56 | Outpatient (CLI) | payer MEDICARE, SELFPAY ==
[2023-12-25 13:25] LABS: Bilirubin Negative (Negative); Blood Trace-intact (Negative); Clarity Sl Cloudy (Clear); Glucose Negative (Negative); Ketones Negative (Negative); Leukocyte Esterase Small (Negative); Nitrite Negative (Negative); Urobilinogen 0.2 mg/dL (Up to 0.2)
[2023-12-25 13:26] LABS: Abs Immature Grans 0.04 10^3/uL (0.0-0.06); Absolute Basophil Count 0.06 10^3/uL (0.0-0.2); Absolute Eosinophil Count 0.16 10^3/uL (0.0-0.7); Absolute Lymphocyte Count 1.79 10^3/uL (1.2-3.4); Absolute Monocyte Count 0.52 10^3/uL (0.1-0.8); Absolute Neutrophil Count 4.07 10^3/uL (1.2-6.7); Basophils % 0.9; Eosinophils % 2.4; HCT 41.4 % (36.0-46.0); HGB 13.2 g/dL (11.2-15.7); Immature Grans % 0.6; MCH 28.5 pg (27.0-33.0); MCHC 31.9 % (32.0-36.0); MCV 89 fL (80-95); MPV 10.1 fL (8.0-11.0); Monocytes % 7.8; Neutrophils % 61.3; Platelet Count 416 10^3/uL (130-400); RBC 4.63 10^6/uL (3.93-5.22); RDW 13.3 % (11.7-14.6); RDW-SD 43.8 fL; WBC 6.64 10^3/uL (4.4-10.8)
[2023-12-25 13:33] LABS: Bacteria Many HPF (Negative); C & S Indicated? Yes; Casts 0-2 Coarse Granular LPF (Negative); Crystals Few Amorphous HPF (Negative); Epithelial Cells Rare HPF (Negative); Mucus Trace (Negative)
[2023-12-25 14:03] LABS: Iron 75 ug/dL (50-170)
[2023-12-25 14:17] LABS: Ferritin 495 ng/mL (8-252)
== END 2023-12-25 04:57 | disposition home or self-care (01) ==
PROVIDERS: PCP Family Medicine; Visit Provider Family Medicine
DX: D64.9 Anemia, unspecified (principal); N39.0 Urinary tract infection, site not specified
CPT/HCPCS: 87077; 81003; 81015; 82728; 83540; 85025; 87086; 87186

== ENCOUNTER 2023-12-31 13:10 | Outpatient (REF) | payer MEDICARE, SELFPAY ==
[2023-12-31 15:10] LABS: C Diff PCR Negative (Negative)
[2024-01-01 15:08] LABS: Campylobacter PCR Negative (Negative); Salmonella PCR Negative (Negative); Shiga Toxin PCR Negative (Negative); Shigella/Enteroinvasive Ecoli Negative (Negative)
== END 2023-12-31 13:11 | disposition home or self-care (01) ==
LOC: LBN 13:10
PROVIDERS: PCP Family Medicine; Visit Provider Family Medicine
DX: R19.7 Diarrhea, unspecified (principal); T50.Z95A Adverse effect of other vaccines and biological substances, initial encounter
CPT/HCPCS: 87329; 87493; 87505

== ENCOUNTER → 2024-01-03 01:19 | Outpatient (CLI) | payer MEDICARE, SELFPAY ==
--- NOTE | 2024-01-03 07:15 | DI.US_ITS ---
Exam(s) US RENAL EXAM: US RENAL CLINICAL HISTORY: recurrent UTI, ? stone,URINARY INCONTINENCE,N39.41,N39.0 TECHNIQUE: Ultrasound of both kidneys performed using standard protocol. COMPARISON: Abdominal CT scan June 2022 was reviewed. FINDINGS: RIGHT KIDNEY: Measures 11.7 cm in length. No cortical cysts evident. There appear to be small parapelvic cysts. N ormal cortical thickness and corticomedullary differentiation .No solid masses No intrarenal calculi nor hydronephrosis. LEFT KIDNEY: Measures 10.7 cm in length. No cortical cysts evident. There appear to be small parapelvic cysts. Normal cortical thickness and corticomedullary differentiaion. No solids masses. No intrarenal calcu li nor hydonephrosis. URINARY BLADDER: Prevoid volume is 192 cc Postvoid volume is 22 cc No evidence of bladder mass nor diverticuli. Ureterovesical jets: Both identified and appear symmetrical IMPRESSION: 1. No significant ultrasound findings in the kidneys. 2. No significant findings in the urinary bladder. DATA REPOSITORY:
== END ==
PROVIDERS: PCP Family Medicine; Visit Provider Family Medicine
DX: N39.0 Urinary tract infection, site not specified (principal); N39.41 Urge incontinence; Z87.440 Personal history of urinary (tract) infections
CPT/HCPCS: 76770

== ENCOUNTER 2024-01-23 21:30 | Outpatient (REF) | payer MEDICARE, SELFPAY ==
[2024-01-23 17:54] LABS: Bilirubin Negative (Negative); Blood Negative (Negative); Clarity Sl Cloudy (Clear); Glucose Negative (Negative); Ketones Negative (Negative); Leukocyte Esterase Negative (Negative); Nitrite Negative (Negative); Urobilinogen 0.2 mg/dL (Up to 0.2); pH 5.5 (5-8)
== END 2024-01-23 21:31 | disposition home or self-care (01) ==
LOC: LBN 21:30
PROVIDERS: PCP Family Medicine; Visit Provider Family Medicine
DX: N39.0 Urinary tract infection, site not specified (principal)
CPT/HCPCS: 81003

== ENCOUNTER → 2024-02-05 10:58 | Outpatient (BNVA) | payer MEDICARE, SELFPAY | PROVIDERS: PCP Family Medicine; Visit Provider Nurse Practitioner Gerontology | DX: N39.41 Urge incontinence (principal) | CPT/HCPCS: 51798; 81003; 99213 ==

== ENCOUNTER 2024-04-24 01:57 | Outpatient (CLI) | payer MEDICARE, SELFPAY ==
[2024-04-24 11:11] LABS: Abs Immature Grans 0.02 10^3/uL (0.0-0.06); Absolute Basophil Count 0.04 10^3/uL (0.0-0.2); Absolute Eosinophil Count 0.07 10^3/uL (0.0-0.7); Absolute Lymphocyte Count 1.65 10^3/uL (1.2-3.4); Absolute Monocyte Count 0.45 10^3/uL (0.1-0.8); Absolute Neutrophil Count 3.77 10^3/uL (1.2-6.7); Basophils % 0.7 %; Eosinophils % 1.2 %; HCT 44.4 % (36.0-46.0); HGB 14.9 g/dL (11.2-15.7); Immature Grans % 0.3 %; Lymphocytes % 27.5 %; MCH 29.4 pg (27.0-33.0); MCHC 33.6 % (32.0-36.0); MCV 88 fL (80-95); MPV 11.1 fL (8.0-11.0); Monocytes % 7.5 %; Neutrophils % 62.8 %; Platelet Count 254 10^3/uL (130-400); RBC 5.07 10^6/uL (3.93-5.22); RDW 13.4 % (11.7-14.6); RDW-SD 42.9 fL
[2024-04-24 11:12] LABS: Bilirubin Negative (Negative); Blood Negative (Negative); Clarity Clear (Clear); Glucose Negative (Negative); Ketones Negative (Negative); Leukocyte Esterase Negative (Negative); Nitrite Negative (Negative); Specific Gravity 1.015 (1.005-1.025); Urobilinogen 0.2 mg/dL (Up to 0.2); pH 6.5 (5-8)
[2024-04-24 11:31] LABS: Ferritin 194 ng/mL (8-252)
[2024-04-24 11:54] LABS: Iron 86 ug/dL (50-170)
== END 2024-04-24 01:58 | disposition home or self-care (01) ==
PROVIDERS: PCP Family Medicine; Visit Provider Family Medicine
DX: D64.9 Anemia, unspecified (principal); N39.0 Urinary tract infection, site not specified
CPT/HCPCS: 36415; 81003; 82728; 83540; 85025

== ENCOUNTER → 2024-05-11 12:56 | Outpatient (BNVA) | payer MEDICARE, SELFPAY | PROVIDERS: PCP Family Medicine; Referring Provider Family Medicine; Visit Provider Nurse Practitioner Gerontology | DX: N39.0 Urinary tract infection, site not specified (principal); N39.41 Urge incontinence | CPT/HCPCS: 81003; 99213 ==

== ENCOUNTER 2024-05-18 19:52 | Outpatient (REF) | payer MEDICARE, SELFPAY ==
[2024-05-18 12:07] LABS: Bilirubin Negative (Negative); Blood Negative (Negative); Clarity Sl Cloudy (Clear); Glucose Negative (Negative); Ketones Negative (Negative); Leukocyte Esterase Trace (Negative); Nitrite Positive (Negative); Urobilinogen 0.2 mg/dL (Up to 0.2)
[2024-05-18 12:27] LABS: Bacteria Many HPF (Negative); C & S Indicated? C&S Done As Ordered; Casts Negative LPF (Negative); Crystals Negative HPF (Negative); Epithelial Cells Few HPF (Negative); Mucus Negative (Negative); RBC Negative HPF (0-2)
--- OUTSIDE RECORDS SUMMARY | 2024-05-18 19:54 | XMS_ITS | Clinical Summary ---
Author Organization [facility] [place] [address] Care Team Providers Care Plant Controller Name Role Phone Mariluz Watts MD Primary Care Provider [phone] Allergies Active Allergy Reactions Criticality Noted Date Comments Gabapentin 07/22/2019 Hallucinations, suicidal thoughts and depression Hymenoptera Allergenic Extract Anaphylaxis High 04/03/2011 Bee Stings Hydroxychloroquine Rash,Other (See Comments) Medium 08/12/2013 Hallucinations Tetracycline Anaphylaxis High 11/06/2018 Tetracyclines Anaphylaxis High Trazodone Rash,Other (See Comments) 11/25/2013 Unsure if hallucinations occur with this or plaquenil. Medications Medication Sig Dispensed Refills Start Date End Date Status omeprazole (PriLOSEC) 20 mg Capsule, Delayed Release(E.C.) Take 20 mg by mouth daily. 10/10/2021 Active escitalopram (Lexapro) 20 mg tablet Take 20 mg by mouth daily. 12/05/2022 Active cholecalciferol, Vitamin D3, 25 mcg (1,000 unit) Capsule Take 1,000 Units by mouth daily. Active ferrous sulfate (FeroSul) 325 mg (65 mg iron) tablet Take 100 mg by mouth daily (with breakfast). Active acetaminophen (Tylenol) 500 mg tablet Take 1,000 mg by mouth. Takes 2 tablets three or four times a day. Active sulfamethoxazole-trim ethoprim (Bactrim) 400-80 mg tablet Take 1 tablet by mouth Daily at Noon. 01/01/2024 Active calcium carb-mag ox-zinc gluc 333-133-5 mg Tablet Take 1 tablet by mouth daily. Active magnesium oxide (Mag-Ox) 400 mg (241.3 mg magnesium) Tablet Take 400 mg by mouth daily. Active melatonin 5 mg tablet Take 10 mg by mouth nightly. Active ascorbic acid, vitamin C, (Vitamin C) 500 mg chewable tablet Take 500 mg by mouth daily. Active clindamycin (Cleocin T) 1 % Solution Apply topically 2 times daily. Active metroNIDAZOLE (Metrogel) 1 % Gel Apply topically daily. Active mupirocin (Bactroban) 2 % Ointment Apply topically 3 times daily. Active Active Problems Patient Care Coordination No te Formatting of this note migh t be different from the original. Awaiting vaccine history. - GRACE TAMEZ LPN 02/17/2014 Immunization record reconciled. 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 OAB (overactive bladder) 11/23/2020 Pelvic floor dysfunction 11/23/2020 Dermatochalasis of both upper eyelids 02/11/2019 Osteoarthritis of midfoot 05/23/2016 Hallux valgus of right foot 05/23/2016 Arthritis of midfoot 08/12/2013 Status post hip replacement 12/22/2012 Dupuytren's contracture 12/03/2012 S/P tubal ligation 07/25/2012 Osteoarthritis of left knee 07/25/2012 Bleeding disorder 07/25/2012 Aortic valve sclerosis 07/25/2012 Overview (07/25/2012): Echo 12/25/2011- EF~60-65%, aortic sclerosis without stenosis, stage II diastolic dysfunction Postoperative anemia due to acute blood loss Overview (07/25/2012): Monitored closely, asymptomatic, BP stable, Hgb- 8.1 prior to discharge. S/P Left Anterior ARSLAN- 07/22/12 (Dr. Ervin) 07/01 Overview (12/22/2012): Date: Jul 22- Surgeon: Nick Ervin MD Surgical Procedure Performed: Injection left hip with 10 cc marcaine 0.25% with epi, into skin and subcutaneous tissues (CPT code 63264) left total hip arthroplasty, anterior Hueter approach with York table (CPT code 44437) Left hip intraoperative radiologic examination (CPT code 24380) Amicar infusion (5 g IV load, then 1g/hr x 3 hrs) Components Used: Stanwood Accolade stem, size 4, 127 degrees Trident PSLcup, 52 mm, solid 32 mm ID, alumina 32-4 mm alumina head Hip pain 01/25/2012 S/P Right ARSLAN 03/06/2005 (Ar[facility]io) 01/25/2012 Overview (01/28/2012): SURGERY DATE: 03/06/2005 ARCADIO STEINER, NICK Angel Surgical Procedure Performed: Right total hip arthroplasty, cementless, [id number] Components Used: Nicole Trident 52 shell outer diameter Femoral head 32-4 mm Stanwood Accolade Femoral stem size 4, 127 deg Rosacea 03/25/2011 GI bleeding 03/25/2011 Overview (06/29/2012): In 2006 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 Gaming presented on screening mammography January 04, 2010 with two masses in the right breast, and a stable fibroglandular pattern without change on the left. The breasts were of scattered density. An ultrasound-guided biopsy of the right breast on January 25 showed an invasive ductal carcinoma and ductal carcinoma in situ. Imaging including breast MRI showed a number of suspicious lesions in both breasts. She underwent bilateral wire localization excisions with reduction mammoplasties and a right sentinel node biopsy on March 24. She was found to have a 1.5 and a 0.8 cm intermediate grade invasive ductal carcinoma on the right with minor ductal carcinoma in situ, with lymphovascular invasion. The deep margin was <1 mm for both the invasive cancer and the DCIS. One of two sentinel nodes were positive with a 2 mm deposit. Estrogen and progesterone receptors were positive, and Her-2 was unamplified. The left breast excision showed a benign sclerosing papilloma. She underwent re-excision of the deep margin on the right on April 04. We met on April 05, and she declined systemic chemotherapy and elected to begin treatment with anastrozole on May 28. She received radiotherapy to the right breast from May 15 through June 22, to a dose of 50.4 Gy. Since starting anastrozole she has had an increase in her rosacea and in the wrinkling of the skin of her face, she has intermittent urinary incontinence and vaginal dryness, she has 8-10 hot flashes each day, she has soft fragile nails, and she has increased arthralgias of her shoulders, neck, right elbow, wrists, left hand and thumb, hips, knees, feet, and ankles. Encounters Date Type Department Care Team Description 05/18/2024 2:00 PM EDT Office [place] [address] Aria Higuera MD Arrived 05/17/2024 Travel 04/23/2024 4:20 PM EDT Office Visit Dermatology at [address] [place] [address] Grand, MD Shaunna Denis 04/23/2024 Travel from Last 3 Months Immunizations Name Administration Dates Next Due DTaP 01/31/2006 Hepatitis C Vaccine 11/28/2018 Influenza (Fluzone HD) Trivalent High Dose 06/30,07/13/2015,07/31/2006 Influenza Trivalent w/Preservative 06/12/2013,,08/03/2008 Influenza Vaccine, Whole 07/11/2010,08/03/2008,1 09/30/2005 Pneumococcal Polysaccharide (Pneumovax 23) 11/28,01/14/2014,05/31/2008 Tdap 01/31/2006 Tetanus Toxoid, Unspecified Formulation 09/30/19 17 Zoster (Zostavax) LIVE 07/31/2008 Zoster, Unknown Formulation 09/30/2021, 1 Family History Medical History Relation Comments Strabismus Father Breast Cancer Other 1 80's Breast Cancer Other 2 Prostate Cancer Paternal Grandfather Amblyopia Neg Hx Glaucoma Neg Hx Macular Degeneration Neg Hx Relation Status Comments Father Other 1 Other 2 Paternal Grandfather Social History Tobacco Use Types Packs/Day Years Used Date Smoking Tobacco: Former Cigarettes 1 3 0 09/30/1965 - 09/30/1968 Smokeless Tobacco: Never Alcohol Use Standard Drinks/Week Comments No 0 (1 standard drink = 0.6 oz pur e alcohol) DH IPV Inpatient Questions Answer Date Recorded Does Anyone Try to Keep You From Having Contact with Others or Doing Things Outside Your Home? no 04/16/2023 Feels Threatened by Someone no 03/30 Feels Unsafe at Home or Work/School no 04/16/2023 Physical Signs of Abuse Present no 04/16/2023 Sex and Gender Information Value Date Recorded Sex Assigned at Not on file Gender Identity Not on file Sexual Orientation Not on file Last Filed Vital Signs Vital Sign Reading Time Taken Comments Blood Pressure 109/74 05/18/2024 1:44 PM EDT Pulse 93 05/18/2024 1:44 PM EDT Temperature 36.7 ??C (98 ??F) 05/18/2024 1:44 PM EDT Respiratory Rate 16 11/18/2023 2:15 PM EST Oxygen Saturation 98% 05/18/2024 1:44 PM EDT Inhaled Oxygen Concentration - - Weight 84.4 kg (186 lb) 05/18/2024 1:44 PM EDT Height 165.1 cm (5' 5) 05/18/2024 1:44 PM EDT Body Mass Index 30.95 05/18/2024 1:44 PM EDT Plan of Treatment Upcoming Encounters Date Type Department Care Team (Late st Contact Info) Description 11/16/2024 1:00 PM EST Office [place] [phone] Paula Harris PA [facility] [place] [address] 01/26/2025 9:50 AM EDT Appointment Mammography/[place] [phone] Joan Deutsch APRN [facility] [place] [address] 01/26/2025 10:50 AM EDT Office [place] [phone] Joan Deutsch SENIOR INTER[employer]ATIONAL TAX MANAGER [facility] [place] [address] Health Maintenance Due Date Last Done Comments CT Colonography 1945 FIT DNA 1945 FIT 1945 Sigmoidoscopy 1945 Zoster vaccine (2 of 3) 11/25/2021 09/30/19, 08/30/2021, 07/31/2008 Covid-19 Vaccine (5 - 2022-2 4 season) 2023 02/05/2023, 07/26/2022, 12/23/2020, Additional history exists Pneumoccocal Vaccine: 65+ (2 of 2 - PCV) 11/29/2023 11/28/2022, 01/14/2014, 05/31/2008 Influenza (Flu) vaccine (1 o f 1 - Influenza standard series) 05/31/2024 06/30/2022, 07/13/2015, 06/12/2013, Additional history exists Colonoscopy 09/07/2025 09/07/2022, 05/2022, 03/26/2017, Additional history exists Colorectal Cancer Screening 09/07/2025 Tetanus vaccine 09/30/2026 09/30/2016, 12/2005, 01/31/2006 Sigmoidoscopy (10 year) with FIT yearly 09/07/2032 09/07/2022, 09/07/2022, 03/26/2017, Additional history exists Bone Density Scan 12/26/2036 12/26/2021, , 12/11/2016, Additional history exists Tdap adult Completed 01/31/2006 Hepatitis C Screening Completed 11/28/2018 Breast Cancer screening Discontinued 01/21/20, 01/15/2023, 12/26/2021, Additional history exists Medical Devices Implanted Type Area Light Bulb Tester Device Identifier Shelf Expiration Date Model / Serial / Lot Shell,Acetabu lar,Trident,P sl,S ([id number]) (Autoreq) - [id number] Implanted:Qty : 1 on 07/22/2012 at [facility] DO NOT USE [employer] - [id number] [id number] E / / [id number] Insert,Triden t,Alumina,0,D eg,3 ([id number]) (Autoreq) - [id number] Implanted:Qty : 1 on 07/22/2012 at [facility]ANT[facility] DO NOT USE [employer] - 6109 625-0T-32 E / / [id number] Stem,Fem,Acco lade,127,Deg, Neck ([id number]) (Autoreq) - [id number] Implanted:Qty : 1 on 07/22/2012 at [facility] IM[facility] DO NOT USE [employer] - [id number] [id number] / / [id number] Cable,Ss,Crmp ,1.5c596vr,St r ([id number]) - [id number] Implanted:Qty : 1 on 07/22/2012 at [facility] DO NOT USE SY[employer]THES - [id number] 02/27/2017 298.801.0 1S / / [id number] Head,Fem,Alum jose,V40,-4x32 mm ([id number]) (Autoreq) - [id number] Implanted:Qty : 1 on 07/22/2012 at [facility] DO NOT USE [employer] - 6109 09/29/2015 6565-0-03 2 / / [id number] Stent,Contour [id number] ([id number]) - [id number] Implanted:Qty : 1 on 07/27/2015 by Rohan James MD at [facility] Left: Ureter DO NOT USE [employer] - [id number] 03/20/2018 180-222 / / Explanted Type Area Light Bulb Tester Device Identifier Shelf Expiration Date Model / Serial / Lot Stent,Contour- Vl,[id number] ([id number]) - [id number] Implanted:Qty: 1 on 07/11/2015 by Jose D Chauhan III, MD at [facility] Explanted:Qty: 1 on 07/27/2015 by Rohan James MD at [facility] DO NOT USE [employer] - [id number] 12/28/2017 180-156 / / [id number] Procedures Procedure Name Priority Date/Time Associated Diagnosis Comments MAMMO SCREENING CAD AND IRVIN BILATERAL Routine 01/21/2024 10:07 AM EDT Encounter for screening mammogram for breast cancer COLONOSCOPY Routine 09/07/2022 7:41 AM EST DXA CENTRAL SPINE, HIP, AND/OR WHOLE BODY (GENERIC) Routine 12/26/2021 10:53 AM EDT Osteopenia of left forearm HEPATITIS C ANTIBODY Routine 11/28/2018 10:20 AM EST from Last 3 Months or Most Recently Relevant to Health Maintenance Results * Mammo Screening Cad and Irvin Bilateral (01/21/2024 10:07 AM EDT) WORKSTATION ID Data [id number] DH RAD Anatomical Region Laterality Modality Breast Bilateral Mammography Impressions 01/21/2024 10:32 AM EDT No mammographic evidence of malignancy. Routine annual screening mammography is recommended. FINAL ASSESSMENT: BI-RADS Category 2: Benign Findings * ??Regular screening mammograms starting at age 40 reduce the risk of from breast cancer. * ??Women should discuss the risks and benefits with their provider to determine their preferred breast cancer screening schedule, and at what age screening should stop. * ??Women should report any breast changes to a health care provider right away. * ??Some women, because of their family history, a genetic tendency, or other factors, should consider being screened with annual breast MRI as well as with mammograms. * ??Screening mammography may not detect 10-15% of?breast cancers. Thank you for letting us participate in the care of this patient. ??If you are a health care provider and have any questions regarding this report, please contact the number below. ??For patients who have questions please contact the health healthcare social worker that requested your imaging first. ? Narrative 01/21/2024 10:32 AM EDT EXAMINATION: MAMMO SCREENING CAD AND IRVIN BILATERAL REASON FOR EXAM: Screening. History of right breast cancer. Status post bilateral breast reduction TECHNIQUE: CC and MLO views were obtained of BOTH breasts. 2D and 3D tomosynthesis images were obtained. Computer aided detection was used. COMPARISON: Comparison was made to the prior relevant examinations. BREAST DENSITY: The breast tissue is almost entirely fatty. FINDINGS: ??There are no suspicious microcalcifications, masses, or areas of distortion. There are post surgical changes in the right and left breast. Stable appearance. Joan Deutsch APRN IMG MAMMO ORDERABLE S * COLONOSCOPY (09/07/2022 7:41 AM EST) Pathologist [facility] COLONOSCOPY [facility] Endoscopy Procedure Date: 09/07/2022 7:41 AM ? Patient Name: Diamond Gaming ? Date of : 1945 ? Age: 76 ? Order #: [id number] ? Instrument Name: [id number] ? Procedure: ? Colonoscopy Indications: ? High risk colon cancer ? surveillance: Personal history of ? colonic polyps Patient Profile: ? This is a 76 year old female. Refer ? to note in patient chart for ? documentation of history and ? physical. Last Colonoscopy: 2017. Providers: ? Mayur Banuelos MD, Navi R. ? [place] Martinez, Beckie Salvador MD: ?Mariluz Watts MD Medicines: ? Midazolam 5 mg IV, Fentanyl 150 ? micrograms IV Complications: ? No immediate complications. Procedure: ? Pre-Anesthesia Assessment: ? - Prior to the procedure, a History ? and Physical was performed, and ? patient medications and allergies ? were reviewed. The patient's ? tolerance of previous anesthesia ? was also reviewed. The risks and ? benefits of the procedure and the ? sedation options and risks were ? discussed with the patient. All ? questions were answered, and ? informed consent was obtained. ? Prior Anticoagulants: The patient ? has taken no anticoagulant or ? antiplatelet agents. ASA Grade ? Assessment: II - A patient with ? mild systemic disease. After ? reviewing the risks and benefits, ? the patient was deemed in ? satisfactory condition to undergo ? the procedure. ? The procedure, indications, ? benefits, risks and alternatives ? were explained to the patient. ? Specifically discussed were ? potential complications including, ? but not limited to, bleeding, ? perforation, infection, missing a ? cancer, and adverse medication ? reactions. The patient was placed ? in the left lateral decubitus ? position, and a digital rectal exam ? was performed. The Colonoscope was ? inserted in the anus and under ? direct visualization, advanced to ? the terminal ileum, with ? identification of the appendiceal ? orifice and IC valve. Careful ? inspection was made as the ? colonoscope was withdrawn. The ? colonoscopy was performed without ? difficulty. The patient tolerated ? the procedure well. The quality of ? the bowel preparation was evaluated ? using the BBPS (Baxter Bowel ? Preparation Scale) with scores of: ? Right Colon = 3 (entire mucosa seen ? well with no residual staining, ? small fragments of stool or opaque ? liquid), Transverse Colon = 3 ? (entire mucosa seen well with no ? residual staining, small fragments ? of stool or opaque liquid) and Left ? Colon = 3 (entire mucosa seen well ? with no residual staining, small ? fragments of stool or opaque ? liquid). The total BBPS score ? equals 9. The quality of the bowel ? preparation was excellent. The ? terminal ileum, ileocecal valve, ? appendiceal orifice, and rectum ? were photographed. Scope withdrawal ? time was 16 minutes. ? Findings: ? The perianal and digital rectal examinations were ? normal. ? Many small and large-mouthed diverticula were found ? in the sigmoid colon and descending colon. ? The terminal ileum appeared normal. ? Three sessile polyps were found in the ascending ? colon and cecum. The polyps were 4 to 9 mm in size. ? These polyps were removed with a cold snare. ? Resection and retrieval were complete. ? An 18 mm polyp was found in the ascending colon. The ? polyp was sessile. The polyp was removed with a lift ? and cut technique using a cold snare. The polyp was ? removed with a piecemeal technique using a cold ? snare. Resection and retrieval were complete. To ? prevent bleeding after the polypectomy, two ? hemostatic clips were successfully placed (MR ? conditional). Clip groundwater consultant: Steris 11 and 16mm. ? There was no bleeding during, or at the end, of the ? procedure. ? Two semi-sessile polyps were found in the transverse ? colon. The polyps were 5 mm in size. These polyps ? were removed with a cold snare. Resection and ? retrieval were complete. ? Two squamous appearing villiform polypoid lesions ? were found on the anal side of the dentate line. The ? are flat and villiform extending into the anal canal. ? No bleeding was present. Biopsies were taken with a ? cold forceps for histology. ? Moderate Sedation: ? Moderate (conscious) sedation was administered by the ? endoscopy nurse and supervised by the endoscopist. ? The patient's oxygen saturation, heart rate, blood ? pressure and response to care were monitored. ? I was present during the intraservice time as ? documented by the sedation RN. Impression: ?- Diverticulosis in the sigmoid ? colon and in the descending colon. ? - The examined portion of the ileum ? was normal. ? - Three 4 to 9 mm polyps in the ? ascending colon and in the cecum, ? removed with a cold snare. Resected ? and retrieved. ? - One 18 mm polyp in the ascending ? colon, removed using lift and cut ? and a cold snare and removed ? piecemeal using a cold snare. ? Resected and retrieved. Clips (MR ? conditional) were placed. ? - Two 5 mm polyps in the transverse ? colon, removed with a cold snare. ? Resected and retrieved. ? - Polypoid lesion at the anus. ? Biopsied. Recommendation: ?- Await pathology results. ? - Repeat colonoscopy in 3 years for ? surveillance. ? - Referral to Colorectal Surgery. ? - Plan 12-Lead ECG in Recovery and ? follow-up with PCP. ? Attending Participation: ? I personally performed the entire procedure. ? I was present during the intraservice time as ? documented by the sedation RN. ? Dr. Elian Banuelos ___ Mayur Banuelos MD 09/07/2022 9:11:52 AM Number of Addenda: 0 Note Initiated On: 09/07/2022 7:41 AM PROVATION 09/07/2022 7:41 AM EST Mariluz Watts MD GENERAL SURGICAL ORD ERABLES PROVATION * DXA Central Spine, Hip, and/or Whole Body (Generic) (12/26/2021 10:53 AM EDT) Anatomical Region Laterality Modality C-spine, Hip N/A Other Impressions 12/26/2021 12:42 PM EDT Measurements meet WHO criteria for osteoporosis. The change in classification was due to decrease in T score at the one third distal radius. Bone mineral density measurements at the spine have increased compared to prior. Estimating Fracture Risk: The relationship between bone mineral density (BMD) and risk of fracture is well established. As BMD decreases, risk increases. Quantifying risk is difficult and is usually limited to estimation of the relative risk - a term which may have limited value when trying to discuss an individual's risk. Estimating the absolute risk for a patient requires an understanding of the incidence rate in a given population and consideration of multiple, partially independent, risk factors in addition to BMD. The World Health Organization (WHO) has developed a fracture risk prediction tool that calculates a ten-year risk of major osteoporotic fracture based on femoral neck bone density measurements and nine clinical risk factors for individuals who have not been treated for osteoporosis. This is available through an interactive web-based interface (http://www.shef.ac.uk/FRAX/) and can be used to estimate a given patient's absolute risk of major osteoporotic fracture or hip fracture over the next 10 years. These estimates may prove useful when discussing risk with a patient. It is important, however, to understand the tool's limitations and how a given individual's risk might differ from the tool's estimate. The tool does not take into account the dose-response associated with most risk factors. For example, the significant increase in risk associated with multiple prior fractures compared to a single prior fracture is not taken into account. Similarly, the location of a previous fracture, the amount of glucocorticoids and number of cigarettes smoked are not considered. These limitations are discussed in a Frequently Asked Questions section of the FRAX website which you are encouraged to review. DEXA data sheets with BMD measurements and plots are available in [employer] under the imaging tab. Paper copies will be sent to providers without [employer] access. If you have received this report without the data sheet and do not have access to [employer], please contact Radiology Mental Health Unit Lead Psychologist at [phone] Saturday thru Saturday 8am-4pm. Thank you for letting us participate in the care of this patient. ??If you are a health care provider and have any questions regarding this report, please contact the number below. ??For patients who have questions please contact the health healthcare social worker that requested your imaging first. ? Narrative 12/26/2021 12:42 PM EDT EXAMINATION: DXA CENTRAL SPINE, HIP, AND/OR WHOLE BODY (GENERIC) CLINICAL HISTORY: ??76 years Female 76 year old woman with osteopenia at the wrist and spine (as entered by ordering provider) TECHNIQUE: Scans were acquired at the lumbar spine and left forearm using the Hologic Horizon A system. L1 and L3 were excluded from analysis due to standard deviation difference. FINDINGS: Lowest T-score at the diagnostic region of interest: T-score: -2.7, ROMÁN: One third distal radius, WHO diagnosis: osteoporosis. ......... Comparison......... Previous scan:November 2019 Total spine: Compared to the previous, 0.086 ??g/cm2 (9.9 %) increase. At [facility], least significant change for bone mineral density measurements at the spine region of interest: 0.031 g/cm2 Procedure Note Juan Antonio Ibarra MD - 12/26/2021 EXAMINATION: DXA CENTRAL SPINE, HIP, AND/OR WHOLE BODY (GENERIC) CLINICAL HISTORY: 76 years Female 76 year old woman with osteopenia atthe wrist and spine (as entered by ordering provider) TECHNIQUE: Scans were acquired at the lumbar spine and left forearm usingthe Hologic Horizon A system. L1 and L3 were excluded from analysis due tostandard deviation difference. FINDINGS: Lowest T-score at the diagnostic region of interest: T-score: -2.7, ROMÁN: One third distal radius, WHO diagnosis:osteoporosis. ......... Comparison......... Previous scan:November 2019 Total spine: Compared to the previous, 0.086 g/cm2 (9.9 %) increase. At [facility], least significant change for bonemineral density measurements at the spine region of interest: 0.031 g/cm2 IMPRESSION Measurements meet WHO criteria for osteoporosis. The change inclassification was due to decrease in T score at the one third distal radius. Bone mineral density measurements at the spine have increased compared toprior. Estimating Fracture Risk: The relationship between bone mineral density (BMD) and risk of fractureis well established. As BMD decreases, risk increases. Quantifying risk isdifficult and is usually limited to estimation of the relative risk - a term which mayhave limited value when trying to discuss an individual's risk. Estimatingthe absolute risk for a patient requires an understanding of the incidencerate in a given population and consideration of multiple, partially independent,risk factors in addition to BMD. The World Health Organization (WHO) has developed a fracture riskprediction tool that calculates a ten-year risk of major osteoporotic fracture basedon femoral neck bone density measurements and nine clinical risk factorsfor individuals who have not been treated for osteoporosis. This isavailable through an interactive web-based interface (http://www.shef.ac.uk/FRAX/)and can be used to estimate a given patient's absolute risk of majorosteoporotic fracture or hip fracture over the next 10 years. These estimates mayprove useful when discussing risk with a patient. It is important, however, to understand the tool's limitations and how a given individual's risk mightdiffer from the tool's estimate. The tool does not take into account thedose-response associated with most risk factors. For example, the significant increasein risk associated with multiple prior fractures compared to a single priorfracture is not taken into account. Similarly, the location of a previous fracture,the amount of glucocorticoids and number of cigarettes smoked are notconsidered. These limitations are discussed in a Frequently Asked Questions sectionof the FRAX website which you are encouraged to review. DEXA data sheets with BMD measurements and plots are available in EGloopleunder the imaging tab. Paper copies will be sent to providers without [employer] access.If you have received this report without the data sheet and do not haveaccess to [employer] please contact Radiology Mental Health Unit Lead Psychologist at [phone] Saturday thruFriday 8am-4pm. Thank you for letting us participate in the care of this patient. If youare a health care provider and have any questions regarding this report,please contact the number below. For patients who have questions please contactthe health healthcare social worker that requested your imaging first. Abrahan Merlos MD IMG DEXA ORDERABLES * Hepatitis C Antibody (11/28/2018 10:20 AM EST) Hepatitis C Antibody Negative Negative [facility] Blood specimen (specimen) Venous Draw / Unknown 11/28/2018 10:20 AM EST 11/28/2018 10:51 AM EST Narrative Resulting Agency Comment Spec In Lab Mariluz Watts MD CHEMISTRY ORDERABLES [facility] [place] [address] from Last 3 Months or Most Recently Relevant to Health Maintenance Advance Directives Documents on File Type Date Recorded Patient Hand Silvering Supervisor Expl anation POLST/COLST (Order for Life Sustaining Treatment) 11/26/2019 1:52 PM Advance Directives and Living Will 10/28/2019 9:53 AM signed on 10/21/2019 Personal Hand Silvering Supervisor 12/12/2022 9:20 AM PERSONAL REP FORM FOR ASHLEY SMITH - SIGNED 12/12/2022 * Attempt Cardiopulmonary Resuscitation - Inpatient (Latest Code Status on File) Date Activated Date Inactivated Comments 04/16/2023 4:40 PM 04/16/2023 10:23 PM Question Answer Comments Code Status decision made by: Patient * Attempt Cardiopulmonary Resuscitation - Inpatient Date Activated Date Inactivated Comments 04/16/2023 1:18 PM 04/16/2023 4:40 PM Question Answer Comments Code Status decision made by: Patient * Full Code Date Activated Date Inactivated Comments 07/26/2015 5:50 PM 07/27/2015 2:50 PM Question Answer Comments Does patient have capacity to make decision: Yes * Full Code Date Activated Date Inactivated Comments 07/11/2015 4:31 PM 07/13/2015 4:12 PM Question Answer Comments Does patient have capacity to make decision: Yes * Full Code Date Activated Date Inactivated Comments 07/22/2012 6:42 PM 07/25/2012 11:20 PM Healthcare Agents on File Name Relationship Healthcare Agent Relationship Communication Ashley Smith Friend Health Care Agent [id number] (Home) Willy [employer] [facility] Health Care Agent [email or web address] Care Teams Plant Controller Relationship Specialty Start Date End Date Mariluz Watts MD [address] [place] [address] PCP - General 08/22/10
--- OUTSIDE RECORDS SUMMARY | 2024-05-18 19:54 | XMS_ITS | Encounter Summary ---
[place] [address] Care Team Providers Care Telegraph Office Manager Name Role Phone Mariluz Watts MD Primary Care Provider [phone] Encounter Details Date Type Department Care Team (Latest Contact Info) Description 04/23/2024 Travel Social History Tobacco Use Types Packs/Day Years Used Date Smoking Tobacco: Former Cigarettes 1 3 0 09/30/1965 - 09/30/1968 Smokeless Tobacco: Never Alcohol Use Standard Drinks/Week Comments No 0 (1 standard drink = 0.6 oz pur e alcohol) IPV Inpatient Questions Answer Date Recorded Does [...] on file Sexual Orientation Not on file documented as of this encounter Plan of Treatment Upcoming Encounters Date Type Department Care Team ( Contact Info) Description 11/16/2024 1:00 PM EST Office Visit [place] [address] Paula Harris PA [facility] [place] [address] 01/26/2025 9:50 AM EDT Appointment Mammography/DXA at [place] [phone] Joan Deutsch, [facility] [place] [address] 01/26/2025 10:50 AM EDT Office [place] [address] Joan Deutsch, [facility] [place] [address] documented as of this encounter Visit Diagnoses Not on filedocumented in this encounter Care Teams Telegraph Office Manager Relationship Specialty Start Date End Date Mariluz Watts MD [address] [place] [address] PCP - General 08/22/10 documented as of this encounter
--- OUTSIDE RECORDS SUMMARY | 2024-05-18 19:54 | XMS_ITS | Encounter Summary ---
[place] [address] Care Team Providers Care Crepe Box Tender Name Role Phone Mariluz Watts MD Primary Care Provider [phone] Encounter Details Date Type Department Care Team (Latest Contact Info) Description 05/17/2024 Travel Social History Tobacco Use Types Packs/Day [...] PM EST Office [place] [address] Paula Harris PA [facility] [place] [address] 01/26/2025 9:50 AM EDT Appointment Mammography/DXA at [place] [phone] Joan Deutsch, [facility] [place] [address] 01/26/2025 10:50 AM EDT Office [place] [address] Joan Deutsch, [facility] [place] [address] documented as of this encounter Visit Diagnoses Not on filedocumented in this encounter Care Teams Crepe Box Tender Relationship Specialty Start Date End Date Mariluz Watts MD [address] [place] [address] PCP - General 08/22/10 documented as of this encounter
--- OUTSIDE RECORDS SUMMARY | 2024-05-18 19:54 | XMS_ITS | Encounter Summary ---
Author Organization [facility] [place] [address] Care Team Providers Care Assistant City Attorney Name Role Phone Mariluz Watts MD Primary Care Provider [phone] Encounter Details Date Type Department Care Team (Late st Contact Info) Description 05/18/2024 2:00 PM EDT Office [place] [address] Aria Higuera MD [facility] [place] [address] Arrived Social History Tobacco Use Types Packs/Day Years Used Date Smoking Tobacco: Former Cigarettes 1 3 0 09/30/1965 - 09/30/1968 Smokeless Tobacco: Never Alcohol Use Standard Drinks/Week Comments No 0 (1 standard drink = 0.6 oz pur e alcohol) [facility] Inpatient Questions Answer Date Recorded Does Anyone [...] on file documented as of this encounter Last Filed Vital Signs Vital Sign Reading Time Taken Comments Blood Pressure 109/74 05/18/2024 1:44 PM EDT Pulse 93 05/18/2024 1:44 PM EDT Temperature 36.7 ??C (98 ??F) 05/18/2024 1:44 PM EDT Respiratory Rate - - Oxygen Saturation 98% 05/18/2024 1:44 PM EDT Inhaled Oxygen Concentration - - Weight 84.4 kg (186 lb) 05/18/2024 1:44 PM EDT Height 165.1 cm (5' 5) 05/18/2024 1:44 PM EDT Body Mass Index 30.95 05/18/2024 1:44 PM EDT documented in this encounter Plan of Treatment Upcoming Encounters Date Type Department Care Team (Late st Contact Info) Description 11/16/2024 1:00 PM EST Office [place] [address] Paula Harris PA [facility] [place] [address] 01/26/2025 9:50 AM EDT Appointment Mammography/DXA at [place] [phone] Joan Deutsch APRN [facility] [place] [address] 01/26/2025 10:50 AM EDT Office Visit General Surgery at [place] [phone] Joan Deutsch APRN [facility] [place] [address] documented as of this encounter Visit Diagnoses Not on filedocumented in this encounter Care Teams Assistant City Attorney Relationship Specialty Start Date End Date Mariluz Watts MD [address] [place] [address] [address] [place] [address] PCP - General 08/22/10 documented as of this encounter
--- OUTSIDE RECORDS SUMMARY | 2024-05-18 19:55 | XMS_ITS | Encounter Summary ---
[place] [address] Care Team Providers Care 6Th Grade Teacher Name Role Phone Mariluz Watts MD Primary Care Provider [phone] Encounter Details Date Type Department Care Team (Latest Contact Info) Description 01/15/2023 2:00 PM EDT - 01/15/2023 11:59 PM EDT Hospital Encounter [place]ology [place] [address] Other osteoporosis without current pathological fracture Discharge Disposition: Home Social History Tobacco Use Types Packs/Day Years Used Date Smoking Tobacco: Former Cigarettes 1 3 0 09/30/1965 - 09/30/1968 Smokeless Tobacco: Never Alcohol Use Standard Drinks/Week Comments No 0 (1 standard drink = 0.6 oz pur e alcohol) Sex and Gender Information Value Date Recorded Sex Assigned at Not on file Gender Identity Not on file Sexual Orientation Not on file documented as of this encounter Medications at Time of Discharge Medication Sig Dispensed Refills Start Date End Date escitalopram (Lexapro) 20 mg tablet Take 20 mg by mouth daily. 12/05/2022 cholecalciferol, Vitamin D3, 25 mcg (1,000 unit) Capsule Take 1,000 Units by mouth daily. ferrous sulfate (FeroSul) 325 mg (65 mg iron) tablet Take 100 mg by mouth daily (with breakfast). omeprazole (PriLOSEC) 20 mg Capsule, Delayed Release(E.C.) Take 20 mg by mouth daily. 10/10/2021 oxyCODONE (Roxicodone) 5 mg tablet Take 1 tablet by mouth every 6 hours as needed for Pain. 8 tablet 04/16/2023 05/20/2023 multivitamin Capsule Take 1 capsule by mouth daily. 01/21/2024 acetaminophen (Tylenol) 500 mg tablet Take 500 mg by mouth daily. 04/05/2023 solifenacin (VESICARE) 10 mg Tablet TAKE 1 TABLET DAILY 90 tablet 3 07/09/2021 11/18/2023 documented as of this encounter Plan of Treatment Upcoming Encounters Date Type Department Care Team (Late st Contact Info) Description 11/16/2024 1:00 PM EST Office [place] [phone] Paula Harris PA [facility] [place] [address] 01/26/2025 9:50 AM EDT Appointment Mammography/[place] [phone] Joan Deutsch APRN [facility] [place] [address] 01/26/2025 10:50 AM EDT Office [place] [phone] Joan Deutsch APRN [facility] [place] [address] documented as of this encounter Procedures Procedure Name Priority Date/Time Associated Diagnosis Comments HC VENIPUNCTURE Routine 01/15/2023 2:20 PM EDT Other osteoporosis without current pathological fracture COMPREHENSIVE METABOLIC PANEL STAT 01/15/2023 2:20 PM EDT Other osteoporosis without current pathological fracture documented in this encounter Results * Vitamin D, 25-Hydroxy (01/15/2023 2:20 PM EDT) Vitamin D Total 25 OH 42 21 - 100 ng/mL [facility] Vit D Interp Sufficient [facility] Blood 01/15/2023 2:20 PM EDT 01/15/2023 2:23 PM EDT Narrative Resulting Agency Comment Spec In Lab Abrahan Merlos MD CHEMISTRY ORDERABLES [facility] [place] [address] * (ABNORMAL) Comprehensive metabolic panel (non-fasting) (01/15/2023 2:20 PM EDT) Glucose 100 65 - 199 mg/dL [facility] Comment:Diabetes: >=200 mg/d L plus symptoms Blood Urea Nitrogen 17 8 - 18 mg/dL [facility] Creatinine 0.78 0.70 - 1.20 mg/dL [facility] Sodium 145 135 - 145 mmol/L [facility] Potassium 4.3 3.5 - 5.0 mmol/L [facility] Comment: Please note: ??Patients with WBC >100,000 may have falsely elevated Potassium levels. ??For accurate Potassium quantification in these patients send serum separator tube (gold top) for subsequent determinations. ??Contact the Clinical Chemistry Laboratory if there are any questions. Chloride 109(H) 98 - 107 mmol/L [facility] Carbon Dioxide 26 22 - 31 mmol/L [facility] Anion Gap 10 5 - 15 mmol/L [facility] Calcium 9.9 8.5 - 10.5 mg/dL [facility] Protein, Total 6.9 6.1 - 8.0 g/dL [facility] Albumin 4.7 3.2 - 5.2 g/dL [facility] Aspartate Aminotransferase 12 0 - 30 unit/L [facility] Alanine Aminotransferase 17 0 - 30 unit/L [facility] Alkaline Phosphatase 90 35 - 105 unit/L [facility] Bilirubin, Total 0.2 0.2 - 1.3 mg/dL [facility] Est Glomerular Filtration Rate 79 >=60 mL/min/1. 73 m?? [facility] Comment: This patient's estimated GFR was calculated using the 2020 CKD-EPI equation. The estimated GFR can vary from the measured GFR by up to 30% in the absence of rapidly changing kidney function. Assessment of the estimated GFR is not appropriate when creatinine concentrations are rapidly changing. For clinical situations in which a more precise estimate of GFR is necessary, consider alternative methods of GFR estimation such as a 24-hour urine creatinine clearance. Assignment of CKD stage 1-5 for patients with an eGFR near the transition point between stages may be based on clinical assessment of muscle mass and symptoms in addition to eGFR. Blood 01/15/2023 2:20 PM EDT 01/15/2023 2:23 PM EDT Narrative Resulting Agency Comment Spec In Lab Abrahan Merlos MD CHEMISTRY ORDERABLES Performing Organization Address City/State/[facility] Co de Phone Number [facility] [place] [address] documented in this encounter Visit Diagnoses Diagnosis Other osteoporosis without current pathological fracture documented in this encounter Care Teams 6Th Grade Teacher Relationship Specialty Start Date End Date Mariluz Watts MD [address] [place] [address] PCP - General 08/22/10 documented as of this encounter
--- OUTSIDE RECORDS SUMMARY | 2024-05-18 19:55 | XMS_ITS | Encounter Summary ---
[place] [address] Care Team Providers Care Building Drafter Name Role Phone Mariluz Watts MD Primary Care Provider [phone] Encounter Details Date Type Department Care Team (Late st Contact Info) Description 01/15/2023 1:40 PM EDT Office Visit [place] [address] Joan Deutsch APRN [facility] [place] [address] Encounter for screening mammogram for breast cancer; History of breast cancer Social History Tobacco Use Types Packs/Day Years [...] on file documented as of this encounter Progress Notes * Joan Deutsch APRN - 01/15/2023 1:40 PM EDT Diamond is a 77 y[address] Pt of Dr. Marquez who returns in surgical follow up. She had routine screening mammography performed in December 2009 with the finding of a new mass measuring approximately 2cm at 9:00 in the right breast. This prompted call back imaging including mammogram and u/s which confirmed a solid, spiculated mass. U/S guided biopsy revealed IDC/DCIS. Kimi thenunderwent MRI for surgical planning. This revealed a second ipsilateral lesion as well as 2 lesionsin close proximity in the contralateral left breast. Additional imaging and biopsy revealed multifocal right breast cancer and left breast atypical papilloma. She opted for BCT with b/l simultaneous breast reduction. Kimi was brought to the OR 03/24/10. 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 Biopsy site change (lesion 3) 2. Benign papilloma 3. Fibrocystic disease with fibrosis, cysts and sclerosing adenosis. Resection Margins (RM): Invasive Ca: Close to margin Distance from closest RM(s): Less than 1 mm to deep margin (slide C5) DCIS: Close to deep margin Distance from closest RM(s): < 1 mm to deep margin (slide C5) Axillary lymph nodes: Total no. nodes sampled: 2 No. non-sentinel nodes: 0 No. sentinel nodes: 2 (Specimen A - Right [place] node) No. positive for carcinoma: 1 (H&E) No. with IHC (+) cells only: 0 (cells not seen by H&E, see Note*) No. negative for carcinoma: 1 (both H&E and IHC For positive nodes: Largest kristi deposit 0.2 cm Extranodal extension Absent Estrogen/Progestin receptors: Performed on blocks C2 and C11 ER immunoreactivity: Positive (see Diagnostic hanna*) [place] immunoreactivity: Positive (see Diagnostic hanna*) HER2/shonda expression by FISH: Negative Kimi was returned to the OR for deep margin excision. This was negative for residual malignancy. Kimi declined chemotherapy and proceeded to whole breast xrt. She completed 5 years of arimidex. She is still bothered by her smaller than expected breast size after reduction. Kimi has been feeling well. She was diagnosed with A-Fib at a recent colonoscopy. She is going to [place] for a consult as she does not want to take blood thinners due to bleeding disorder. She is having an anal hpv lesion removed with Dr. Higuera in March. She denies any new aches or pains, cp, sob, and headaches. On exam, well appearing and in nad. No cervical, supraclavicular or axillary adenopathy. B/L reduction mammoplasty incisions well healed. Fat necrosis in the right breast 10:00 1x2cm and left breast at 12:00 and 3:00 at areolar border approximately 1cm. No additional masses appreciated. Mammogram today: pending Comprehensive Breast Program Surgery Follow Up Note armRange of motion of surgical arm complete Lymphedema present No Cosmesis-surgeon reported Cosmesis-patient reported Good Good Local or regional recurrence No Contralateral cancer present No Distant recurrence present No Date of last follow up 12/26/21 A/P: Doing well without evidence of recurrence or metastatic disease. Plan follow up in 1 year with bilateral mammogram. She knows to call with questions in the interim. Joan Deutsch APRN documented in this encounter Plan of Treatment Upcoming Encounters Date Type Department Care Team (Late st Contact Info) Description 11/16/2024 1:00 PM EST Office Visit [place] [address] Paula Harris PA [facility] [place] [address] 01/26/2025 9:50 AM EDT Appointment Mammography/[place] [phone] Joan Deutsch APRN [facility] [place] [address] 01/26/2025 10:50 AM EDT Office Visit [place] [address] Joan Deutsch APRN [facility] [place] [address] documented as of this encounter Results * Mammo Screening Cad and Irvin Bilateral (01/21/2024 10:07 AM EDT) A2B WORKSTATION ID [id number] 2 DH RAD Anatomical Region Laterality Modality [...] who have questions please contact the health managed care nurse that requested your imaging first. ? Narrative [...] and left breast. Stable appearance. Joan Deutsch OPHTHALMOLOGY TECHNICIAN IMG MAMMO ORDERABLE S documented in this encounter Visit Diagnoses Diagnosis Encounter for screening mammogram for breast cancer History of breast cancer Personal history of malignant neoplasm of breast Encounter for screening mammogram for breast cancer documented in this encounter Care Teams Building Drafter Relationship Specialty Start Date End Date Mariluz Watts MD [address] [place] [address] PCP - General 08/22/10 documented as of this encounter
--- OUTSIDE RECORDS SUMMARY | 2024-05-18 19:55 | XMS_ITS | Encounter Summary ---
Author Organization [facility] [place] [address] Care Team Providers Care Filter Press Tender Head Name Role Phone Mariluz Watts MD Primary Care Provider [phone] Encounter Details Date Type Department Care Team (Latest Contact Info) Description 04/16/2023 11:54 AM EDT - 04/16/2023 8:05 PM EDT Hospital Encounter [place] [address] Aria Higuera MD [facility] [place] [address] Discharge Disposition: Home Social History Tobacco Use Types Packs/Day Years Used Date Smoking Tobacco: Former Cigarettes 1 3 0 09/30/1965 - 09/30/1968 Smokeless Tobacco: Never Alcohol Use Standard Drinks/Week Comments No 0 (1 standard drink = 0.6 oz pur e alcohol) [facility] Inpatient Questions Answer Date Recorded Does Anyone [...] Sign Reading Time Taken Comments Blood Pressure 122/90 04/16/2023 7:30 PM EDT Pulse 94 04/16/2023 12:21 PM EDT Temperature 36.4 ??C (97.5 ??F) 04/16/2023 6:26 PM ED T Respiratory Rate 17 04/16/2023 12:21 PM EDT Oxygen Saturation 94% 04/16/2023 7:30 PM EDT Inhaled Oxygen Concentration - - Weight 95.3 kg (210 lb 1.6 oz) 04/16/2023 12:21 PM EDT Height 165.1 cm (5' 5) 04/16/2023 12:21 PM EDT Body Mass Index 34.96 04/16/2023 12:21 PM EDT documented in this encounter Discharge Instructions * Patient Instructions* Aria Higuera MD - 04/16/2023 6:22 PM EDT DIVISION OF COLON & RECTAL SURGERY Anorectal Surgery Patient Post-operative Discharge Instructions Please restart Eliquis in 7 days Wound Care You may leave the dressing intact today and remove it tomorrow morning. If you need to move your bowels, the dressing may be removed sooner. Expect some drainage - this may be residual pus, or may be a small amount of blood or mucus - this is normal / expected. Please use fluffy 4x4 gauze to absorb any drainage and keep your bottom dry. You may shower or soak, whichever makes you more comfortable. if you have a lot of swelling, try sitting on an ice-pack (frozen pea's work well). You may sit on a pillow but do not sit on donut cushions as it spreads the buttocks. If you are having increased discomfort you may perform sitz bath A sitz bath instruction instructions: Soak your buttocks in plain warm tapwater for 15 minutes 4X/day. Pain medications Please take [id number] pain medications for post-operative discomfort.(Please continue to take these scheduled for the first 3 to 4 days to decrease discomfort) Acetaminophen (Tylenol) 1000 mg by mouth every 6 hours. If a narcotic is prescribed use it sparingly and try to discontinue it as soon as possible Avoid getting constipated Drink lots of water and fluids (over 2 liters per day). Start, tonight ;Each morning please take MiraLax 1 capful in a large glass of water please continuethis for the first 1 to 2 weeks to aid in bowel movements If you do not have a bowel movement in 48 hours then take 60 cc of Milk of Magnesia every 12 hours until you have a bowel movement. If you do not have a bowel movement after 2 doses of Milk of Magnesia please call (see below). You may restart a daily fiber supplement (such as Citrucel or BeneFiber), one heaping tablespoon in8 oz. of water. However initially this may give you too much bulk and I would recommend waiting 1 to 2 weeks, as you wean your MiraLAX/laxatives you can replace this with fiber 4. When to call Fever > 101.5 F worsening pain active bleeding, passing blood clots difficulty/inability to pass urine (urinary retention) or stool (constipation) any other worrisome condition or question during regular work hours call the Surgery Clinic at after hours / nights / weekends / holidays: call and ask for the General Surgery Resident doctor On-Call. Follow-up. You will have a post-operative follow-up appointment with your Surgical Team scheduled. If you have any questions, please call . Future Appointments Date Time Provider Department Center 05/20/2023 2:00 PM Aria Higuera MD [facility] 07/08/2023 10:20 AM Cornell Hernández MD [facility], [place] [address] documented in this encounter Medications at Time of Discharge Medication Sig Dispensed Refills Start Date End Date acetaminophen (Tylenol) 500 mg tablet Take 1,000 mg by mouth. Takes 2 tablets three or four times a day. escitalopram (Lexapro) 20 mg tablet Take 20 [...] needed for Pain. 8 tablet 04/16/2023 05/20/2023 Azelaic Acid (FINACEA) 15 % GelIndications:Rosacea After skin is thoroughly washed and patted dry, gently but thoroughly massage a thin film of azelaic acid cream into the affected area twice daily, in the morning and evening. 50 g 5 04/05/2023 01/21/2024 multivitamin Capsule Take 1 capsule by mouth daily. 01/21/2024 solifenacin (VESICARE) 10 mg Tablet TAKE 1 TABLET DAILY 90 tablet 3 07/09/2021 11/18/2023 documented as of this encounter Progress Notes * Tiffany Morales RN - 04/16/2023 8:05 PM EDT Discharge instructions given and discussed with patient. Patient verbalized understanding. All questions answered. Patient discharged in stable condition via wheelchair. documented in this encounter H&P Notes * Romaine Handy MD - 04/16/2023 4:42 PM EDT Patient Name: Diamond Gaming Patient Age: 77 y.o. Birthdate: 1945 Admit date: 04/16/2023 Attending Physician: Aria Higuera MD HPI obtained from clinic note: Diamond Gaming is a pleasant 76 y.o. female who is referred for consultation by Dr. Banuelos regarding anal lesions seen on colonoscopy August 2022. No previous abnormal Pap smear, colposcopy, LEEP. On exam today, there is a condylomatous lesion internal at dentate line right lateral anal canal, consistent with findings on colonoscopy. We discussed that condyloma usually represents previous exposure to HPV. We discussed that the high risk HPV that can show up on cervical cancer screening is a same HPV that can cause dysplasia and/or predispose to anal cancer. We recommend excision of this lesion to prevent progression to dysplasia and/or squamous cell carcinoma. She denies anorectal symptoms. Continues to take Benefiber for regular bowel movements and stool consistency. No difficulty with bowel control. Patient has complex past medical history. She reports that she was diagnosed with a variant of Marfan syndrome, hypermobility syndrome with associated bleeding diathesis. She has had history of GI bleed requiring transfusion 5 units of blood in the past. [facility] who diagnosed her with this (Dr. Villalba). She now currently sees Dr. De La Cruz.Has received preop TXA with prior orthopedic surgery. Patient has diagnosis of atrial fibrillation,saw cardiology at [facility], she is now on daily Eliquis. Stopped Eliquis on 04/12/23 and will require tranexamic acid preop for bleeding disorder. She denies any changes in health (medications, allergies, emergency room visits, hospitalizations, procedures); She also denies fevers, chills, nausea, vomiting. Objective: BP 118/78 (BP Location (NBP): Left arm) Pulse 94 Temp 36.8 ??C (98.2 ??F) (Temporal) Resp 17 Ht 165.1 cm (5' 5) Wt 95.3 kg (210 lb 1.6 oz) SpO2 96% BMI 34.96 kg/m?? 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 Aria Higuera. Romaine Handy MD, MPH 04/16/23 Associated attestation - Aria Higuera MD - 04/16/2023 6:44 PM EDT No changes to HPI, PMH, PSH, MEDS, CC since last exam Aaox3, nad EOMI, ERRLA RRR Non labored breathing abd s/nt/nd Ext no cyanosis or edema Ok to proceed with case as scheduled. documented in this encounter Miscellaneous Notes * Brief Op Note - Romaine Handy MD - 04/16/2023 6:43 PM EDT Brief Operative Note Patient Name: Diamond Gaming : [id number] MR#: [id number] Case Date: 04/16/2023 Surgeon: Surgeon(s) and Role: * Aria Higuera MD - Primary * Romaine Handy MD - Resident - Assisting Preoperative diagnosis: hemorrhoidectomy/hpv Postoperative diagnosis: hemorrhoidectomy/hpv Procedure(s) (LRB): ANORECTAL EXAM, REQUIRING ANESTHESIA, DIAGNOSTIC (WRVU 1.8) (N/A) ANAL LESION DESTRUCTION, SIMPLE, ELECTRODESICCATION (WRVU 1.91) (N/A) HEMORRHOIDECTOMY, INTERNAL & EXTERNAL, SIMPLE (WRVU 4.96) (N/A) Anesthesia: General Findings: Anal condylomas excised and 2 specimens sent for path. Hemostasis achieved, surgicel was also placed and area packed with gauze filled bacitracin. Complications: None Estimated Blood Loss: 5 mL* No values recorded between 04/16/2023 5:34 PM and 04/16/2023 6:14 PM * Specimens removed during surgery: Order Name Source Comment Collection Info Order Time SPECIMEN TO PATHOLOGY hemorrhoidectomy/hpv interior RIGHT posterior HPV excision No 04/16/2023 5:47 PM Time specimen removed from patient: 5:47 PM Number of tissue samples (in container) 1 Biospecimen to store? No PATHOLOGY ORDER UPDATE Original order has incorrect laterality, should be LEFT not right 04/16/2023 5:54 PM Additional information: Correction Enter requested changes: interior LEFT posterior hpv eD-H Order Id number [id number] SPECIMEN TO PATHOLOGY hemorrhoidectomy/hpv interior RIGHT posterior HPV excision No 04/16/2023 6:01 PM Time specimen removed from patient: 6:01 PM Number of tissue samples (in container) 1 Biospecimen to store? No Fluids: Intraprocedure Crystalloid Total Intake Lactated Ringers 500.00 mL Total Intake 500 mL Output Blood Loss 5 mL Total Output 5 mL Net Net Volume 495 mL PRBCs: none (See Anesthesia Record/Report for Other Blood Products) Urine Output: (no urine output recorded) Drains: None Disposition: awakened from anesthesia, extubated and taken to the recovery room in a stable condition, having suffered no apparent untoward event. Condition: doing well without problems (Please see the Surgical Encounter Summary for any Implant and Specimen details pertinent to this patient.) Surgical Infection Prevention Bundle Used? No Romaine Handy MD, MPH * Op Note - Aria Higuera MD - 04/16/2023 5:34 PM EDT [facility] Operative Note Patient Name: Diamond Gaming : [id number] MR#: [id number] Case Date: 04/16/2023 Surgeon: Surgeon(s) and Role: * Aria Higuera MD - Primary * Romaine Handy MD - Resident - Assisting Preoperative diagnosis: hemorrhoidectomy/hpv Postoperative diagnosis: hemorrhoidectomy/hpv Procedure(s) (LRB): ANORECTAL EXAM, REQUIRING ANESTHESIA, DIAGNOSTIC (WRVU 1.8) (N/A) ANAL LESION DESTRUCTION, SIMPLE, ELECTRODESICCATION (WRVU 1.91) (N/A) HEMORRHOIDECTOMY, INTERNAL & EXTERNAL, SIMPLE (WRVU 4.96) (N/A) Anesthesia: General Estimated Blood Loss: 5 mL Specimens removed during surgery: Order Name Source Comment Collection Info Order Time SPECIMEN TO PATHOLOGY hemorrhoidectomy/hpv interior RIGHT posterior HPV excision No 04/16/2023 5:47 PM Time specimen removed from patient: 5:47 PM Number of tissue samples (in container) 1 Biospecimen to store? No PATHOLOGY ORDER UPDATE Original order has incorrect laterality, should be LEFT not right 04/16/2023 5:54 PM Additional information: Correction Enter requested changes: interior LEFT posterior hpv eD-H Order Id number [id number] SPECIMEN TO PATHOLOGY hemorrhoidectomy/hpv interior RIGHT posterior HPV excision No 04/16/2023 6:01 PM Time specimen removed from patient: 6:01 PM Number of tissue samples (in container) 1 Biospecimen to store? No Drains: * No LDAs found * Surgical Closure: N/A Disposition: awakened from anesthesia, extubated and taken to the recovery room in a stable condition, having suffered no apparent untoward event. Condition: doing well without problems (Please see the Surgical Encounter Summary for any Implant and Specimen details pertinent to this patient.) HPI/Surgical Indications: 77-year-old female with a typical findings on colonoscopy suggestive of high-grade dysplasia within the anal canal recommended for excision Procedure Description: The patient was brought to the operating room where LMA anesthesia was induced. The patient was placed in lithotomy, and the buttocks taped apart. The perineum was sterilely prepped and draped in standard fashion. A formal timeout was performed including identification of thepatient and team, all safety concerns were addressed and plan to move forward with surgery. Findings: 2 separate areas of atypia at dentate line left posterior lateral and right posterior lateral All areas removed with hemorrhoid surgery Stop Eliquis for 7 days The perianal skin and external hemorrhoids were evaluated, the internal hemorrhoid columns were evaluated with insertion of a Miller anoscope into the anal canal this allowed for procedure planning was performed. The operative findings are noted above. A perianal field block was performed using 30 mL 0.5% Marcaine in a controlled fashion. Using the Miller anoscope and then transition to the Fansler anoscope there was evidence of atypia left posterior. Internal sphincter was identified and avoided. Cautery was used to excise both the hemorrhoid and the area of atypia. The lesion was then closed with walking chromic and locking Vicryl suture hemostasis was obtained. The specimen was a sent for pathology left internal posterior We then transition to right portion which was larger and involved both internal and external hemorrhoid and the area of atypia. The Fansler retractor was used for evaluation. Internal sphincter was identified and avoided. Dissection was performed the specimen was removed completely hemostasis was obtained using both cautery and the LigaSure. The area was then closed with a running locking Vicryl and chromic suture. Hemostasis was well obtained. Second specimen was sent for pathology. The patient was evaluated at the end of the procedure with no evidence of bleeding. The patient wasplaced supine, extubated and transferred to recovery without complications. Estimated blood loss was 5 mL. I was present and scrubbed for the entire duration of the operation. Surgical Infection Prevention Bundle Used? N/A Attestation: Case Date: 04/16/2023 I was present and I participated during the entire procedure (does not need to include opening and closing). Aria Higuera MD 04/16/2023 documented in this encounter Plan of Treatment Upcoming Encounters Date Type Department Care Team (Late st Contact Info) Description 11/16/2024 1:00 PM EST Office [place] [address] Paula Harris PA [facility] [place] [address] 01/26/2025 9:50 AM EDT Appointment Mammography/[place] [phone] Joan Deutsch [employer] [facility] [address] 01/26/2025 10:50 AM EDT Office [place] [address] Joan Deutsch [employer] [facility] [place] [address] documented as of this encounter Procedures Procedure Name Priority Date/Time Associated Diagnosis Comments SPECIMEN TO PATHOLOGY Routine 04/16/2023 6:01 PM EDT SURGICAL PATHOLOGY REPORT Routine 2022 5:47 PM EDT SPECIMEN TO PATHOLOGY Routine 04/16/2023 5:47 PM EDT Hemorrhoidectomy, Int/Ext, Simple ([id number]) 04/16/2023 5:07 PM EDT hemorrhoidectomy/ hpv Destruction Lesion Anus Simple Electrodesiccation ([id number]) 04/16/2023 5:07 PM EDT hemorrhoidectomy/ hpv Surg Diagnostic Exam, Anorectal ([id number]) 04/16/2023 5:07 PM EDT hemorrhoidectomy/ hpv documented in this encounter Results * Specimen to Pathology (04/16/2023 6:01 PM EDT) AP Specimen 04/16/2023 6:01 PM EDT 04/16/2023 6:01 PM EDT Narrative [facility] - 04/16/2023 6:01 PM EDT Specimen requisition ordered. ??Separate Pathology report to follow Aria Higuera MD PATHOLOGY/CYTOLOGY O RDERABLES [facility] [place] [address] * Surgical Pathology Report (04/16/2023 5:47 PM EDT) Final Diagnosis [id number] ? Location: [facility]; The signing pathologist has (i) examined the relevant preparation(s) for the specimen(s) and (ii) rendered or confirmed the diagnosis(es). . 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 - Hemorrhoid. B - Interior RIGHT posterior HPV, excision: - Condyloma acuminatum. - Hemorrhoid. Electronically signed by: ?Uyen Willis MD Verified: ??04/23/2023 16:25 ??Pathologist Performed at: ??-[facility] Dept. of Pathology, [place] [address] Mountain Services Manager: Uyen Willis MD, FCAP, ??CLIA Certificate: [id number] ADDITIONAL STUDIES Whole slide scan: A1 SPECIMEN(S) SUBMITTED A - Interior LEFT posterior HPV, excision (1) B - Interior RIGHT posterior HPV, excision (1) CLINICAL INFORMATION Hemorrhoidectomy/h pv SPECIMEN PROCESSING A - Labeled/Fixative: Inferior left posterior HPV, fresh. Quantity/Size: ??Single, 1.3 x 0.8 x 0.5 cm. Tissue Description: Intact, polypoid portions of pink-red mucosa with underlying, congested vasculature. Sections/Processin g: Inked and serially sectioned. Serially sectioned and entirely submitted in 1 cassette labeled A1. B - Labeled/Fixative: Inferior right posterior HPV, fresh. Quantity/Size: ??Single, 0.8 x 0.8 x 0.8 cm. Tissue Description: Intact, polypoid portions of pink-red mucosa with underlying, congested vasculature. Sections/Processin g: Inked and serially sectioned. Pattern Weaver sections in 1 cassette labeled B1. ??vmj 04/23/2023 4:25 PM EDT [facility] ANAL STRUCTURE / Unknown 04/16/2023 5:47 PM EDT 04/16/2023 5:47 PM EDT ANAL STRUCTURE / Unknown 04/16/2023 5:47 PM EDT 04/16/2023 5:47 PM EDT Aria Higuera MD PATHOLOGY/CYTOLOGY O JOSELUIS [facility] [place] [address] [facility] [place] [address] * Specimen to Pathology (04/16/2023 5:47 PM EDT) AP Specimen 04/16/2023 5:47 PM EDT 04/16/2023 5:47 PM EDT Narrative [facility] - 04/16/2023 5:47 PM EDT Specimen requisition ordered. ??Separate Pathology report to follow Aria Higuera MD PATHOLOGY/CYTOLOGY O RDERABLES [facility] [place] [address] documented in this encounter Visit Diagnoses Not on filedocumented in this encounter Administered Medications Inactive Administered Medications - up to 3 most recent administrations Medication Order MAR Action Action Date Dose Rate Site acetaminophen (Tylenol) tablet 1,000 mg 1,000 mg, Oral, ONCE, 1 dose, On Sat04/16/23 at 1230, Administer with SIP of H2O only. Maximum dose of acetaminophen is 4,000 mg from all sources in 24 hours., Day of Surgery (Day of Procedure), Routine Given 04/16/2023 12:30 PM EDT 1,000 mg oxyCODONE (Roxicodone) tablet 5 mg 5 mg, Oral, EVERY 4 HOURS PRN, Starting on Sat04/16/23 at 1823, Until Sat04/16/23 at 2217, Pain, Routine Given 04/16/2023 7:05 PM EDT 5 mg documented in this encounter Active and Recently Administered Medications Times are shown in EDT. Scheduled Medication Order 04/14/2023 04/15/2023 04/16/2023 acetaminophen (Tylenol) tablet 1,000 mg (COMPLETED) 1,000 mg, Oral, ONCE, 1 dose, On Sat04/16/23 at 1230, Administer with SIP of H2O only. Maximum dose of acetaminophen is 4,000 mg from all sources in 24 hours., Day of Surgery (Day of Procedure), Routine 1230 (Given - Provid er: Joanna Doyle RN) PRN Medication Order 04/14/2023 04/15/2023 04/16/2023 BUpivacaine (pf) (Marcaine) (5 mg/mL) 0.5% injection (CANCELED) PRN, Starting on Sat04/16/23 at 1823, Until Sat04/16/23 at 2217, Intra-Operative (Intra-Procedure), Routine 1822 (Given - Provid er: Aria Higuera MD) oxyCODONE (Roxicodone) tablet 5 mg 5 mg, Oral, EVERY 4 HOURS PRN, Starting on Sat04/16/23 at 1823, Until Sat04/16/23 at 2217, Pain, Routine 190 (Given - Provid er: Tiffany Morales RN) documented in this encounter Care Teams Filter Press Tender Head Relationship Specialty Start Date End Date Mariluz Watts MD [address] [place] [address] [address] [facility] [address] [place] [address] PCP - General 08/22/10 documented as of this encounter
--- OUTSIDE RECORDS SUMMARY | 2024-05-18 19:55 | XMS_ITS | Encounter Summary ---
[place] [address] Care Team Providers Care Split Leather Mosser Name Role Phone Mariluz Watts MD Primary Care Provider [phone] Encounter Details Date Type Department Care Team (Latest Contact Info) Description 10/04/2023 Travel Social History Tobacco Use Types Packs/Day [...] PM EST Office [place] [address] Paula Harris PA [facility] GENER[place] [address] 01/26/2025 9:50 AM EDT Appointment Mammography/DXA at [place] [phone] Joan Deutsch, [facility] GENER[place] [address] 01/26/2025 10:50 AM EDT Office [place] [address] Joan Deutsch, [facility] [place] [address] documented as of this encounter Visit Diagnoses Not on filedocumented in this encounter Care Teams Split Leather Mosser Relationship Specialty Start Date End Date Mariluz Watts MD [address] [place] [address] PCP - General 08/22/10 documented as of this encounter
--- OUTSIDE RECORDS SUMMARY | 2024-05-18 19:55 | XMS_ITS | Encounter Summary ---
[place] [address] Care Team Providers Care Customer Complaint Service Supervisor Name Role Phone Mariluz Watts MD Primary Care Provider [phone] Encounter Details Date Type Department Care Team (Late st Contact Info) Description 04/24/2023 Telephone [place] [address] Karine Vaca RN Social History Tobacco Use Types Packs/Day Years Used Date Smoking Tobacco: Former Cigarettes 1 3 0 09/30/1965 - 09/30/1968 Smokeless Tobacco: Never Alcohol Use Standard Drinks/Week Comments No 0 (1 standard drink = 0.6 oz pur e alcohol) [facility] Inpatient Questions Answer Date Recorded Does [...] on file documented as of this encounter Miscellaneous Notes * Telephone Encounter - Karine Vaca RN - 04/24/2023 9:01 AM EDT Images from the original note were not included. Nursing Triage - Phone Note CALLER: Pt to the general surgery clinic Learning Needs Assessment Reviewed: Yes CHIEF COMPLAINT Rectal bleeding SUBJECTIVE- I am still bleeding so going to hold off on restarting my Eliquis PERTINENT PAST SURGICAL HISTORY Pt is s/p Brief Operative Note Patient Name: Diamond Gaming : [id number] MR#: [id number] Case Date: 04/16/2023 Surgeon: Surgeon(s) and Role: * Aria Higuera MD - Primary * Romaine Handy MD - Resident - Assisting Preoperative diagnosis: hemorrhoidectomy/hpv Postoperative diagnosis: hemorrhoidectomy/hpv Procedure(s) (LRB): ANORECTAL EXAM, REQUIRING ANESTHESIA, DIAGNOSTIC (WRVU 1.8) (N/A) ANAL LESION DESTRUCTION, SIMPLE, ELECTRODESICCATION (WRVU 1.91) (N/A) HEMORRHOIDECTOMY, INTERNAL & EXTERNAL, SIMPLE (WRVU 4.96) (N/A) NURSING ASSESSMENT: Pt was to restart her Eliquis today but due to ongoing rectal bleeding ( mostlyseen when she wipes) Does not happen any other time. Pt has a known bleeding disorder . She is seeing her PCP tomorrow. Discussed with Dr Higuera INTERVENTION/PLAN/ FOLLOW UP: Okay with Dr Higuera to hold another week. PT in agreement but will discuss with her PCP tomorrow. She will keep us in the loop. Disposition:Patient to continue to monitor from home. Teaching:I reviewed the signs and symptoms of infection (fever of 101, spreading redness that is hot to the touch, purulent drainage, severe persistent pain) and instructed the patient to continue tomonitor. (enter in other pt specific instructions) Patient able o verbalize teaching plan: Y/ Worsening symptoms:If you develop fever of 101, spreading redness, purulent drainage, severe prolonged pain, prolonged nausea and vomiting, please call ([phone] during daytime and [phone] at night/weekends) and/or go to the ED for evaluation. If you are bleeding and cannot get it to stop,have chest pain or breathing difficulties please go to the closest ED or call 911 for assistance. Patient able to verbalize worsening symptom plan: Y/ Resource in decision making: PCP: Mariluz Watts MD documented in this encounter Plan of Treatment Upcoming Encounters Date Type Department Care Team (Late st Contact Info) Description 11/16/2024 1:00 PM EST Office [place] [address] Paula Harris PA [facility] [place] [address] 01/26/2025 9:50 AM EDT Appointment Mammography/[place] [address] Joan Deutsch [facility] [place] [address] 01/26/2025 10:50 AM EDT Office [place] [address] Joan Deutsch [facility] [place] [address] documented as of this encounter Visit Diagnoses Not on filedocumented in this encounter Care Teams Customer Complaint Service Supervisor Relationship Specialty Start Date End Date Mariluz Watts MD [address] [place] [address] PCP - General 08/22/10 documented as of this encounter
--- OUTSIDE RECORDS SUMMARY | 2024-05-18 19:55 | XMS_ITS | Encounter Summary ---
[place] [address] Care Team Providers Care District Court Reporter Name Role Phone Mariluz Watts MD Primary Care Provider [phone] Encounter Details Date Type Department Care Team (Latest Contact Info) Description 05/20/2023 Travel Social History Tobacco Use Types Packs/Day [...] PM EST Office Visit [place] [address] Paula Harris PA [facility] [place] [address] 01/26/2025 9:50 AM EDT Appointment Mammography/DXA at [place] [phone] Joan Deutsch, [facility] [place] [address] 01/26/2025 10:50 AM EDT Office [place] [address] Joan Deutsch, [facility] [place] [address] documented as of this encounter Visit Diagnoses Not on filedocumented in this encounter Care Teams District Court Reporter Relationship Specialty Start Date End Date Mariluz Watts MD [address] [place] [address] PCP - General 08/22/10 documented as of this encounter
--- OUTSIDE RECORDS SUMMARY | 2024-05-18 19:55 | XMS_ITS | Encounter Summary ---
[place] [address] Care Team Providers Care Pack Changer Name Role Phone Mariluz Watts MD Primary Care Provider [phone] Encounter Details Date Type Department Care Team (Late st Contact Info) Description 01/15/2023 2:15 PM EDT Laboratory Appointment Lab [address] [place] [phone] Social History Tobacco Use Types Packs/Day Years [...] PM EST Office [place] [phone] Paula Harris PA [facility] [place] [address] 01/26/2025 9:50 AM EDT Appointment Mammography/DXA at [place] [phone] Joan Deutsch [facility] [place] [address] 01/26/2025 10:50 AM EDT Office [place] [address] Joan Deutsch, [facility] [place] [address] documented as of this encounter Visit Diagnoses Not on filedocumented in this encounter Care Teams Pack Changer Relationship Specialty Start Date End Date Mariluz Watts MD [address] [place] [address] [address] [place] [address] PCP - General 08/22/10 documented as of this encounter
--- OUTSIDE RECORDS SUMMARY | 2024-05-18 19:55 | XMS_ITS | Encounter Summary ---
Author Organization [facility] [place] [address] Care Team Providers Care Clinical Research Associate Name Role Phone Mariluz Watts MD Primary Care Provider [phone] Encounter Details Date Type Department Care Team (Latest Contact Info) Description 01/15/2023 Travel Social History Tobacco Use Types Packs/Day [...] PM EST Office [place] [address] Paula Harris PA [facility] [place] [address] 01/26/2025 9:50 AM EDT Appointment Mammography/[place] [address] Joan Deutsch APRN [facility] [place] [address] 01/26/2025 10:50 AM EDT Office [place] [address] Joan Deutsch, GE [facility] [place] [address] documented as of this encounter Visit Diagnoses Not on filedocumented in this encounter Care Teams Clinical Research Associate Relationship Specialty Start Date End Date Mariluz Watts MD [address] [place] [address] PCP - General 08/22/10 documented as of this encounter
--- OUTSIDE RECORDS SUMMARY | 2024-05-18 19:55 | XMS_ITS | Encounter Summary ---
Author Organization [facility] Address [facility] [place] [address] Care Team Providers Care Dye Winch Operator Name Role Phone Mariluz Watts MD Primary Care Provider [phone] Encounter Details Date Type Department Care Team (Late st Contact Info) Description 10/04/2023 10:40 AM EST Office Visit Dermatology at [facility] [address] [place] [address] Mirta Loaiza MD [facility] [place] [address] Milia; Telangiectasias; Rosacea Social History Tobacco Use Types Packs/Day Years Used Date Smoking Tobacco: Former Cigarettes 1 3 0 09/30/1965 - 09/30/1968 Smokeless Tobacco: Never Alcohol Use Standard Drinks/Week Comments No 0 (1 standard drink = 0.6 oz pur e alcohol) [facility] Inpatient Questions Answer Date Recorded Does [...] as of this encounter Progress Notes * Mirta Loaiza MD - 10/04/2023 10:40 AM EST Images from the original note were not included. DEPARTMENT OF DERMATOLOGY Medical Dermatology Clinic Provider: Mirta Loaiza MD Patient's preferred name Diamond Preferred contact method for results [x]Phone []myD-H []Letter Detailed phone message OK? Yes Are there any other people with whom we may discuss your care? No Past Medical History Date, location, treatment Melanoma No Dysplastic nevi No SCC No BCC No AKs No UV Exposure & Protection No Other relevant past medical history No Family History Details Melanoma Unknown NMSC Unknown Other relevant family history Unknown Social History Occupation: Hobbies: Other: Pre-Procedure Screening Details Allergy to lidocaine, epinephrine, Dermabond, chlorhexidine, or adhesives N Bleeding disorder or blood thinners Bleeding Disorder Implanted devices (Pacemaker, defibrillator, deep brain stimulator, cochlear implant) N History of Present Illness: Diamond Gaming is a 77 y.o. Patient returns to clinic today for rosacea - Patient states she is on Azelaic Acid 15% gel and Ivermectin (Soolantra). Patient states her rosacea is looking better after the last time she was here and it has been a slow progress. Patient states that she also has lots of milia on her face that she would like removed. She also states that shewould like to discuss laser for the red lines on her face. Last visit at Dermatology: 07/08/2023 Last visit with this provider: Visit date not found Medications: Reviewed in eD-H Allergies: Reviewed in eD-H Skin Examination: Focused skin examination of the face was normal with the exception of the findings below. Assessment/Plan #. Papulopustular and Erythemato-telangiectatic Rosacea - Scattered inflammatory papule and pustules most prominent on the bilateral right cheek and chin. (Figure 1) - First evaluated here in 01/2023 - Scraping of pustule negative for Demedex on 04/05/23 - Discussed common triggers, including alcohol, exercise, caffeine, spicy foods, sun exposure, and extreme temperatures. - Current treatment: topical azelaic acid daily and topical ivermectin 1% cream. - Pt reports that she does not have time to apply multiple topicals several times a day. - Start [facility] Rx: azelaic acid 15% - ivermectin 1% - metronidazole 1% cream - apply to face BID - Email: [email or web address] - Phone number: [phone] - Discussed redness is best treated with V-Beam. Pt will consider and schedule consult with Dr. Cruz. Discussed $200 for consultation and $100 goes towards treatment. - Recommended OTC tinted sunscreens #. Milia - 0.1 cm firm, round, white subcutaneous papules on the face. - Discussed benign nature of lesions and provided reassurance. No treatment necessary. - Discussed extraction if pt was ever interested. #. Sebaceous Hyperplasia - Scattered yellowish papules with central umbilication on the face. - Patient reassured of benign nature. - No treatment necessary. Discussed with patient that treatment/removal would be considered cosmetic, therefore insurance would not cover it and patient would be expected to pay out of pocket, in full, at time of service. Figure 1 Photo(s) taken and charted with patient's verbal consent. Other: Sun protection discussed (protective clothing and SPF30+ broad-spectrum sunscreen) RTC: 6 months for rosacea []Note routed to secretary of state [x]Recall placed in scheduling system []Appointment scheduled at checkout Scribe attestation: Lucia Sinha [facility] has performed the documentation for this encounter in the presence of and acting as a scribe for Mirta Loaiza MD. I performed the above scribed service and agree with the accuracy of the documentation in this encounter. Reviewed and signed by: Mirta Loaiza MD Dermatology [facility] Patient seen and evaluated with staff market development analyst: Cande Foster MD Dermatology [facility] * Cande Foster MD - 10/04/2023 10:40 AM EST I directly supervised Mirta Loaiza MD in the care of this Dermatology patient in person. I saw and evaluated this patient with Mirta Loaiza MD. Mirta Loaiza MD presented the history and physical exam details to me, then we saw the patient together, and I confirmed these findings. I agree with details as written. My physical examination confirms Mirta Loaiza MD's findings. The assessment and plan were formulated in discussion with me at the time of visit, and I agree with them as documented. Cande Foster MD Staff Side Door Man Department of Dermatology [facility] documented in this encounter Plan of Treatment Upcoming Encounters Date Type Department Care Team (Late st Contact Info) Description 11/16/2024 1:00 PM EST Office Visit General Surgery at [place] [phone] Paula Harris PA [facility] [place] [address] 01/26/2025 9:50 AM EDT Appointment Mammography/DXA at [place] [phone] Joan Deutsch APRN [facility] [place] [address] 01/26/2025 10:50 AM EDT Office [place] [phone] Joan Deutsch APRN [facility] [place] [address] documented as of this encounter Visit Diagnoses Diagnosis Milia Sebaceous cyst Telangiectasias Other and unspecified capillary diseases Rosacea documented in this encounter Care Teams Dye Winch Operator Relationship Specialty Start Date End Date Mariluz Watts MD [address] [place] [address] PCP - General 08/22/10 documented as of this encounter
--- OUTSIDE RECORDS SUMMARY | 2024-05-18 19:55 | XMS_ITS | Encounter Summary ---
Author Organization [facility] [place] [address] Care Team Providers Care Qm Consultant Name Role Phone Mariluz Watts MD Primary Care Provider [phone] Encounter Details Date Type Department Care Team (Latest Contact Info) Description 03/13/2023 11:00 AM EDT TH Visit (TeleHealth) [place] [address] Paula Harris PA [facility] [place] [address] Anal condyloma; HPV (human papilloma virus) anogenital infection; Bleeding disorder; Postoperative anemia due to acute blood loss; Atrial fibrillation, unspecified type; Chronic anticoagulation Social History Tobacco Use Types Packs/Day Years [...] as of this encounter Progress Notes * Paula Harris PA - 03/13/2023 11:00 AM EDT Colorectal Surgery Telephone Follow-up ~ Division of Colon and Rectal Surgery ~ [facility] HPI: Diamond Gaming is a pleasant 77 y.o. 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 Aria Higuera. Preoperative conversation today. She denies anorectal symptoms. Continues to take Benefiber for regular bowel movements and stool consistency. No difficulty with bowel control. Consent for a telephone visit was obtained prior to discussion. Patient has complex past medical history. She reports that she was diagnosed with a variant of Marfan syndrome, hypermobility syndrome with associated bleeding diathesis. She has had history of GI bleed requiring transfusion 5 units of blood in the past. [facility] who diagnosed her with this (Dr. Villalba). She now currently sees Dr. De La Cruz.Has received preop TXA with prior orthopedic surgery. Patient has diagnosis of atrial fibrillation,[place] [facility] she is now on daily Eliquis. Review of Systems The patient's PCP is Mariluz Watts MD. 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 Current Outpatient Medications on File Prior to Visit Medication Sig Dispense Refill Azelaic Acid (FINACEA) 15 % Gel After skin is thoroughly washed and patted dry, gently but thoroughly massage a thin film of azelaic acid cream into the affected area twice daily, in the morning and evening. 50 g 0 escitalopram (Lexapro) 20 mg tablet Take 20 mg by mouth daily. cholecalciferol, Vitamin D3, 25 mcg (1,000 unit) Capsule Take 1,000 Units by mouth daily. multivitamin Capsule Take 1 capsule by mouth daily. acetaminophen (Tylenol) 500 mg tablet Take 500 mg by mouth daily. ferrous sulfate (FeroSul) 325 mg (65 mg iron) tablet Take 100 mg by mouth daily (with breakfast). omeprazole (PriLOSEC) 20 mg Capsule, Delayed Release(E.C.) Take 20 mg by mouth daily. solifenacin (VESICARE) 10 mg Tablet TAKE 1 TABLET DAILY 90 tablet 3 No current facility-administered medications on file prior to visit. Social history: reports that she quit smoking about 54 years ago. Her smoking use included cigarettes. She has a 3.00 pack-year smoking history. She has never used smokeless tobacco. She reports thatshe does not drink alcohol and does not use drugs. Family medical history: Family History Problem Relation Age of Onset Prostate Cancer Paternal Grandfather Breast Cancer Other 80's Breast Cancer Other Strabismus Father Amblyopia Neg Hx Glaucoma Neg Hx Macular Degeneration Neg Hx Labs: reviewed. Endoscopy: reviewed. Path: reviewed. Imaging: reviewed. 12/12/2022 7:56 AM COREFO Responses Incontinence Scale 36.11 Social Impact Scale 27.78 Frequency Scale 12.5 Stool Releated Aspects 0 Medication Scale 33.33 Total COREFO Score 26.92 The COREFO questionnaire is a validated questionnaire with 27 questions to assess colorectal functional outcome. Patients are asked to consider the two week period prior before filling out the questionnaire. Category scores range from zero to 100. A total score is calculated from the categories above, also ranging from zero to 100. A higher score represents an increased level of functional disturbance. Impression/Plan: Diamond Gaming is a 77 y.o. 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 Aria Higuera. She has several comorbidities including atrial fibrillation and bleeding diathesis from a hypermobility disorder. She has [facility]ology [place] [facility], who has recentlystarted her on chronic anticoagulation with Eliquis. We reviewed EUA with excision of condyloma in length, specifically going over risks of procedure, including pain, bleeding, and infection. She hasa substantially higher risk of bleeding due to her underlying bleeding disorder. She will hold her Eliquis 3 days prior (04/13/2023) to the procedure and will resume 4-5 days (04/20/2023) after the proc edure. I was able to contact hematology, who recommend preoperative dose of tranexamic acid 10 mg/kg/IV. We will send condyloma to pathology and will determine follow up plan based on final pathologyread. We discussed recovery time after EUA. Will be important to continue optimizing bowel functionand stool consistency after procedure. Should continue fiber supplement after surgery. Per hematology, she does not need a postoperative hemostasis regimen. Patient understood both the procedure and risks associated. She is staying at a hotel the day of her procedure should she have difficulty with bleeding. All of her questions were answered to her satisfaction and we will see her back for surgery on 04/16. Paula Harris PA-C, [facility] Instructor of Surgery Division of Colon and Rectal Surgery [facility] Pager [phone] 1:02 PM 03/13/23 \ documented in this encounter Plan of Treatment Upcoming Encounters Date Type Department Care Team (Late st Contact Info) Description 11/16/2024 1:00 PM EST Office [place] [address] Paula Harris PA [facility] [place] [address] 01/26/2025 9:50 AM EDT Appointment Mammography/[place] [phone] Joan Deutsch [facility] [address] 01/26/2025 10:50 AM EDT Office [place] [phone] Joan Deutsch [facility] [place] [address] documented as of this encounter Visit Diagnoses Diagnosis 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 Human papillomavirus in conditions classified elsewhere and of unspecified site Bleeding disorder Unspecified hemorrhagic conditions Postoperative anemia due to acute blood loss Acute posthemorrhagic anemia Atrial fibrillation, unspecified type Chronic anticoagulation Encounter for long-term (current) use of anticoagulants documented in this encounter Care Teams Qm Consultant Relationship Specialty Start Date End Date Mariluz Watts MD [address] [place] [address] PCP - General 08/22/10 documented as of this encounter
--- OUTSIDE RECORDS SUMMARY | 2024-05-18 19:55 | XMS_ITS | Encounter Summary ---
Author Organization [facility] [place] [address] Care Team Providers Care House Cleaner Supervisor Name Role Phone Mariluz Watts MD Primary Care Provider [phone] Reason for Visit * Reason Comments Follow Up Surgery Encounter Details Date Type Department Care Team (Latest Contact Info) Description 05/20/2023 2:00 PM EDT Office Visit [place] [address] Aria Higuera MD [facility] [address] GENERAL [place] [address] AIN III (anal intraepithelial neoplasia III) Social History Tobacco Use Types Packs/Day Years Used Date Smoking Tobacco: Former Cigarettes 1 3 0 09/30/1965 - 09/30/1968 Smokeless Tobacco: Never Alcohol Use Standard Drinks/Week Comments No 0 (1 standard drink = 0.6 oz pur e alcohol) [facility] Inpatient Questions Answer Date Recorded Does Anyone [...] Sign Reading Time Taken Comments Blood Pressure 140/89 05/20/2023 1:41 PM EDT Pulse 85 05/20/2023 1:41 PM EDT Temperature - - Respiratory Rate - - Oxygen Saturation 98% 05/20/2023 1:41 PM EDT Inhaled Oxygen Concentration - - Weight 95.7 kg (211 lb) 05/20/2023 1:41 PM EDT Height - - Body Mass Index 35.11 04/16/2023 12:21 PM EDT documented in this encounter Progress Notes * Aria Higuera MD - 05/20/2023 2:00 PM EDT Colorectal Surgery Follow-Up Visit ~ Division of Colon and Rectal Surgery ~ [facility] PCP:Mariluz Watts MD HPI: Diamond Gaming 77 y.o. seen in colorectal surgical follow-up for history of recent hemorrhoidectomy with excision of anal canal AIN 3 04/16/2023, postsurgical course was uneventful. Pathology Surgical Pathology DIAGNOSIS A - Interior LEFT posterior HPV, excision: - Condyloma acuminatum with focal high grade squamous intraepithelial lesion (AIN III) - Excision margin is uninvolved. - Hemorrhoid. B - Interior RIGHT posterior HPV, excision: - Condyloma acuminatum. - Hemorrhoid. Electronically signed by: Lazaro STEINER, Uyen Dotson Verified: 04/23/2023 16:25 Pathologist Performed at: -[facility] Dept. of Pathology, [place] [address] Client Account Manager: Uyen Willis MD, FCAP, CLIA Certificate: [id number] ADDITIONAL STUDIES Whole slide scan: A1 Significant past medical history Patient has complex past medical history. She reports that she was diagnosed with a variant of Marfan syndrome, hypermobility syndrome. 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 She was reportedly seeing hematology here at [facility] in 2009 who diagnosed her with this. We do not have these records available to review. Patient also notes previous history of a kidney stone that ultimately ended up in urosepsis. She had a stent placed by urology here at , shortly following her procedure, she notes dizziness/loss of balance, ringing in her ears and gushes of urine. She has seen urology here at as well as in [place]. She has seen a pelvic floor physical therapist. She has been on several medications, including tolterodine. She reports that she goes through 2- 8 pads a day, will still gush urine associated with bladder spasms COREFO: 12/12/2022 7:56 AM COREFO Responses Incontinence Scale [...] represents an increased level of functional disturbance. Patient Active Problem List Diagnosis Code Anxiety [...] A63.0 Atrial fibrillation I48.91 Internal hemorrhoid K64.8 AIN III (anal intraepithelial neoplasia III) D01.3 Past Medical History: Diagnosis Date Anxiety associated with depression Aortic valve sclerosis 07/25/2012 Atrial fibrillation Benign hypermobility syndrome Bleeding diathesis 07/25/2012 Bleeding disorder diag in 2009 Breast cancer, stage 2 01/25/2010 Cancer breast Chronic pain ibuprophen 600 mg 4x a day Degenerative joint disease Dermatochalasis of both upper eyelids 02/11/2019 Diverticulosis Genetic syndrome hypermobility syndrome GI bleeding 03/25/2011 Hypermobility syndrome Kidney disease 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 increased dizziness Pelvic floor dysfunction 11/23/2020 Post-operative nausea and vomiting I have severe motion sickness and need a scopolamine patch. Postoperative anemia due to acute blood loss Rosacea 03/25/2011 Status post radiation therapy Syncope distant past Transfusion history 5 units after a lower gi bleed 2007 BP 140/89 Pulse 85 Wt 95.7 kg (211 lb) SpO2 98% BMI 35.11 kg/m?? Body mass index is 35.11 kg/m??. General Appearance: well developed and well nourished Neuro: awake, alert and oriented to person, place and time no acute distress Psych: appropriate mood and affect Eyes: extra ocular muscles intact, pupils equally reactive to light and accomodation ENT: neck supple, no lyphadenopathy noted CV: regular rate and rhythm Resp: non-labored without adventitous sounds on auscultation Lymph: no edema noted Abdomen: soft, non-tender, and not distended, no masses or organomegaly Ext: no cyanosis Anorectal Exam anoscopy performed: Anoscope inserted with evaluation. Milton in the room. No evidence of regrowth , normal dentate line, slightly diminished and squeeze Assessment: Diamond Gaming 77 y.o. seen in colorectal surgical follow-up for history of recent hemorrhoidectomy with excision of anal canal AIN 3 04/16/2023, postsurgical course was uneventful. Plan: Follow up 6 months Aria Higuera MD, MS, FACS, FASCRS Chief, Division of Colon and Rectal Surgery [facility] Pager [phone] 05/20/2023 2:01 PM documented in this encounter Plan of Treatment Upcoming Encounters Date Type Department Care Team (Late st Contact Info) Description 11/16/2024 1:00 PM EST Office Visit General Surgery at [place] [phone] Paula Harris, [place] [facility] [place] [address] 01/26/2025 9:50 AM EDT Appointment Mammography/DXA at [place] [phone] Joan Deutsch, [place] [facility] [place] [address] 01/26/2025 10:50 AM EDT Office Visit General Surgery at [place] [phone] Joan Deutsch, [place] [facility] [place] [address] documented as of this encounter Visit Diagnoses Diagnosis 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
--- OUTSIDE RECORDS SUMMARY | 2024-05-18 19:55 | XMS_ITS | Encounter Summary ---
Author Organization [facility] [place] [address] Care Team Providers Care Regulatory Leader Name Role Phone Mariluz Watts MD Primary Care Provider [phone] Encounter Details Date Type Department Care Team (Late st Contact Info) Description 09/07/2022 7:45 AM EST - 09/07/2022 8:30 AM EST [place] [address] Mayur Banuelos MD [facility] [place] [address] COLONOSCOPY, POLYPECTOMY, REMOVAL LESION BY SNARE (WRVU 4.57) Social History Tobacco Use Types Packs/Day Years [...] Sign Reading Time Taken Comments Blood Pressure 122/69 09/07/2022 8:30 AM EST Pulse 94 09/07/2022 8:30 AM EST Temperature 36.4 ??C (97.6 ??F) 09/07/2022 7:25 AM ES T Respiratory Rate 9 09/07/2022 8:30 AM EST Oxygen Saturation 93% 09/07/2022 8:30 AM EST Inhaled Oxygen Concentration - - Weight 92.1 kg (203 lb) 09/07/2022 7:12 AM EST Height 165.1 cm (5' 5) 09/07/2022 7:12 AM EST Body Mass Index 33.78 09/07/2022 7:12 AM EST documented in this encounter Discharge Instructions * Discharge Instructions* Ana M Armas, RN - 09/07/2022 9:22 AM EST Colonoscopy: What to Expect at Home Your Recovery Your doctor will talk to you about when you will need your next colonoscopy. Your doctor can help you decide how often you need to be checked. This will depend on the results of your test and your risk for colorectal cancer. After the test, you may be bloated or have gas pains. You may need to pass gas. If a biopsy was done or a polyp was removed, you may have streaks of blood in your stool (feces) for a few days. Problems such as heavy rectal bleeding may not occur until several weeks after the test. This isn't common. But it can happen after polyps are removed. This care sheet gives you a general idea about how long it will take for you to recover. But each person recovers at a different pace. Follow the steps below to get better as quickly as possible. How can you care for yourself at home? Activity Rest when you feel tired. You can do your normal activities when it feels okay to do so. Diet Follow your doctor's directions for eating. Unless your doctor has told you not to, drink plenty of fluids. This helps to replace the fluids that were lost during the colon prep. Do not drink alcohol. Medicines Your doctor will tell you if and when you can restart your medicines. He or she will also give you instructions about taking any new medicines. If you take blood thinners, such as warfarin (Coumadin), clopidogrel (Plavix), or aspirin, be sure to talk to your doctor. He or she will tell you if and when to start taking those medicines again. Make sure that you understand exactly what your doctor wants you to do. If polyps were removed or a biopsy was done during the test, your doctor may tell you not to take aspirin or other anti-inflammatory medicines for a few days. These include ibuprofen (Advil, Motrin) and naproxen (Aleve). Other instructions For your safety, do not drive or operate machinery until the medicine wears off and you can think clearly. Your doctor may tell you not to drive or operate machinery until the day after your test. Do not sign legal documents or make major decisions until the medicine wears off and you can think clearly. The anesthesia can make it hard for you to fully understand what you are agreeing to. Additional Information for Sedation Patients For patients who received sedation: You may have received medications before and/or during your procedure which effects your judgement and reaction time. Do not drive, operate machinery, drink alcoholic beverages or make important decisions for 24 hours. Be careful on stairs as you may be unsteady on your feet. You may eat a regular diet as tolerated. Do not smoke if you are alone. IV site: Slight redness or tenderness is normal, you can use a warm compress if you would like. If tenderness and/or redness increase or if foul drainage occurs, please contact your Doctor. Please call [phone] before 8pm Mon-Fri with problems, questions or concerns. If you call after 8pm or on weekends, call the Hospital at [phone] and ask to speak to the Fire Captain Marine rehabilitation inspector and the automatic grinder operator will contact that person for you. When should you call for help? Call 183 anytime you think you may need emergency care. For example, call if: You passed out (lost consciousness). You pass maroon or bloody stools. You have trouble breathing. Call your doctor now or seek immediate medical care if: You have pain that does not get better after you take pain medicine. You are sick to your stomach or cannot drink fluids. You have new or worse belly pain. You have blood in your stools. You have a fever. You cannot pass stools or gas. Watch closely for changes in your health, and be sure to contact your doctor if you have any problems. Where can you learn more? [email or web address] View your After Visit Summary and more online at [email or web address] If you would like to provide feedback about your hospital experience, please call the Office of Patient and Family Relations at . If you have received this After Visit Summary in error, please immediately return it in person to the department, or notify the - Privacy Office by calling toll free at between the hours of 8AM and 5PM to arrange for our retrieval of the documents at no cost to you. Content Version: 12.2 ?? [id number] [employer]. Care instructions adapted under license by [facility]. If you have questions about a medical condition or this instruction, always ask your healthcare professional. [employer] disclaims any warranty or liability for your use of this information. documented in this encounter Medications at Time of Discharge Medication Sig Dispensed Refills Start Date End Date omeprazole (PriLOSEC) 20 mg Capsule, Delayed Release(E.C.) Take 20 mg by mouth daily. 10/10/2021 tolterodine LA (Detrol LA) 4 mg ER 24 hr capsule Take 4 mg by mouth daily. 01/15/2023 solifenacin (VESICARE) 10 mg Tablet TAKE 1 TABLET DAILY 90 tablet 3 07/09/2021 11/18/2023 documented as of this encounter H&P Notes * Mayur Banuelos MD - 09/07/2022 7:52 AM EST Patient Name: Diamond Gaming Patient Age: 76 y.o. Birthdate: 1945 Admit date: 09/07/2022 Attending Physician: Mayur Banuelos MD Gastroenterology & Hepatology Pre-Procedure History and Physical Planned Procedure: Colonoscopy: Indication: surveillance, polyps Patient Active Problem List Diagnosis Code ??? 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 Diverticulosis K57.90 ??? Degenerative joint disease M19.90 ??? Malignant neoplasm of right breast, stage 2 C50.911 ??? Rosacea L71.9 ??? GI bleeding K92.2 ??? Hip pain M25.559 ??? S/P Right ARSLAN 03/06/2005 (Arcadio) Z96.649 ??? S/P Left Anterior ARSLAN- 07/22/12 (Dr. Ervin) Z96.649 ??? S/P tubal ligation Z98.51 ??? Osteoarthritis of left knee M17.12 ??? Bleeding diathesis D69.9 ??? Aortic valve sclerosis I35.8 ??? Postoperative anemia due to acute blood loss D62 ??? Dupuytren's contracture M72.0 ??? Status post hip replacement Z96.649 ??? Arthritis of midfoot M19.079 ??? 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 Hallux valgus of right foot M20.11 ??? Dermatochalasis of both upper eyelids H02.831, H02.834 ??? OAB (overactive bladder) N32.81 ??? Pelvic floor dysfunction M62.89 Medications: Reviewed in EDH Allergies Allergen Reactions ??? Hymenoptera Allergenic Extract Anaphylaxis Bee Stings ??? Tetracycline Anaphylaxis ??? Tetracyclines Anaphylaxis ??? Plaquenil [Hydroxychloroquine] Rash and Other (See Comments) Hallucinations ??? Gabapentin Hallucinations, suicidal thoughts and depression ??? Trazodone Rash and Other (See Comments) Unsure if hallucinations occur with this or plaquenil. Social History/Family History: Reviewed in EDH. No changes Exam: Patient Vitals for the past 24 hrs: Temp Pulse Resp BP SpO2 O2 Device 09/07/2212 -- -- -- -- -- RA 09/07/22 0725 36.4 ??C (97.6 ??F) (!) 105 20 113/80 96 % -- GEN: NAD, AAOX3 HEENT: NC/AT dryMM, anicteric Chest: CTAB Heart: RRR, nl s1, s2 Abdomen: normal bowel sounds, soft, non tender Assessment and Plan: Proceed with Colonoscopy: ASA Grade: ASA 2 - Patient with mild systemic disease with no functional limitations Mallampati: II (soft palate, uvula, fauces visible) Sedation plan: IV Conscious Sedation Risks and benefits of the procedure were discussed with the patient. Risks discussed including bleeding, infection, reaction to anesthesia, perforation or other intraabdominal trauma, pancreatitis (if applicable), missing a cancer (if applicable) and/or other unforseen complication. Informed Consent signed by patient (or employee's representative). documented in this encounter Plan of Treatment Upcoming Encounters Date Type Department Care Team (Late st Contact Info) Description 11/16/2024 1:00 PM EST Office [place] [address] Paula Harris PA [facility] [place] [address] 01/26/2025 9:50 AM EDT Appointment Mammography/[place] [address] Joan Deutsch APRN [facility] [place] [address] 01/26/2025 10:50 AM EDT Office [place] [address] Joan Deutsch APRN [facility] [place] [address] Scheduled Referrals Name Type Priority Associated Diagnoses Order Schedule Referral to Colorectal Surgery Outpatient Referral Routine HPV (human papilloma virus) anogenital infection Ordered: 09/07/2022 documented as of this encounter Procedures Procedure Name Priority Date/Time Associated Diagnosis Comments EKG 12-LEAD STAT 09/07/2022 9:26 AM EST Atrial fibrillation, unspecified type SPECIMEN TO PATHOLOGY Routine 09/07/2022 8:54 AM EST SPECIMEN TO PATHOLOGY Routine 09/07/2022 8:54 AM EST SPECIMEN TO PATHOLOGY Routine 09/07/2022 8:54 AM EST SURGICAL PATHOLOGY REPORT Routine 09/07/2022 8:52 AM EST SPECIMEN TO PATHOLOGY Routine 09/07/2022 8:52 AM EST Colonoscopy, Remv Karrie Bradley ([id number]) 09/07/2022 8:00 AM EST 5 yr surv from 03/26/17 COLONOSCOPY Routine 09/07/2022 7:41 AM EST documented in this encounter Results * EKG 12 Lead (09/07/2022 9:26 AM EST) Ventricular rate 86 BPM MUSE SYSTEM QRS Duration 80 ms MUSE SYSTEM Q-T Interval 368 ms MUSE SYSTEM QTC Calculated (Bezet) 440 ms MUSE SYSTEM Calculated R [place] -54 degrees MUSE SYSTEM Calculated T [place] 19 degrees MUSE SYSTEM INTERPRETATION Atrial fibrillation Left axis deviation Abnormal ECG When compared with ECG of 18-SEP-2018 11:55, Atrial fibrillation has replaced Sinus rhythm Nonspecific T wave abnormality now evident in Inferior leads I personally reviewed the tracing and edited the fellows interpretation Confirmed by fellow MD Francisco, Sharon ([id number]) on 09/07/2022 3:59:02 PM Confirmed by MD JANELL, PAMELA ([id number]) on 09/07/2022 5:35:52 PM MUSE SYSTEM 09/07/2022 9:26 AM EST 09/07/2022 5:35 PM EST Mayur Banuelos MD ECG ORDERABLES MUSE SYSTEM * Specimen to Pathology (09/07/2022 8:54 AM EST) AP Specimen 09/07/2022 8:54 AM EST 09/07/2022 8:54 AM EST Narrative [facility] - 09/07/2022 8:54 AM EST Specimen requisition ordered. ??Separate Pathology report to follow Mayur Banuelos MD PATHOLOGY/CYTOLOG Y ORDERABLES Performing Organization Address [facility] [place] [address] * Specimen to Pathology (09/07/2022 8:54 AM EST) AP Specimen 09/07/2022 8:54 AM EST 09/07/2022 8:54 AM EST Narrative [facility] - 09/07/2022 8:54 AM EST Specimen requisition ordered. ??Separate Pathology report to follow Mayur Banuelos MD PATHOLOGY/CYTOLOG Y ORDERABLES Performing Organization Address [facility] [place] [address] * Specimen to Pathology (09/07/2022 8:54 AM EST) AP Specimen 09/07/2022 8:54 AM EST 09/07/2022 8:54 AM EST Narrative [facility] - 09/07/2022 8:54 AM EST Specimen requisition ordered. ??Separate Pathology report to follow Mayur Banuelos MD PATHOLOGY/CYTOLOG Y ORDERABLES Performing Organization Address [facility] [place] [address] * Surgical Pathology Report (09/07/2022 8:52 AM EST) Final Diagnosis [id number] ? Location: ; EA08; A The signing pathologist has (i) examined the relevant preparation(s) for the specimen(s) and (ii) rendered or confirmed the diagnosis(es). . 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 Note: Immunostaining for p16 was evaluated for final diagnosis. B - Polyps CE x1 AC x 2, excision: - ??Fragments of tubular adenoma. C - Polyp AC 15 mm, excision (Multiple): - ??Fragments of tubular adenoma. D - Polyps TC x 2, excision: - ??Tubular adenoma. CR-PX Electronically signed by: ?Maxim Kaufman MD Verified: ??09/13/2022 14:39 ??Pathologist Performed at: ??-[facility] [place], [place] [address] Wireless Sales Consultant: Uyen Willis MD, FCAP, ??CLIA Certificate: [id number] ADDITIONAL STUDIES Whole slide scan: A1 Immunohistochemistry Studies: Formalin-fixed, paraffin-embedded tissue sections are studied using the polymer technique with appropriate positive and negative controls. ?These IHC studies provide the pathologist with adjunctive diagnostic information. Antibody specificity has been verified by testing antibodies on a series of in-house tissues with known immunohistochemical performance characteristics. The clinical interpretation of any antibody positive staining or its absence is evaluated within the context of clinical presentation, morphology, histopathological criteria and other diagnostic tests. Block ? Antibody ?Result (Positive/Negative) A1 ? P16 ?see note SPECIMEN(S) SUBMITTED A - Anal canal/dentate line, biopsy (3) B - Polyps CE x1 AC x 2, excision (3) C - Polyp AC 15 mm, excision (Multiple) D - Polyps TC x 2, excision (2) CLINICAL INFORMATION Colonoscopy, polyp surveillance, question squamous dysplasia SPECIMEN PROCESSING A - Labeled/Fixative: Anal canal dentate line, formalin. Quantity/Size: Fragments, 0.2-0.3 cm. Tissue Description: Soft, castillo-pink tissues. . SPECIMEN PROCESSING Sections/Processing: Submitted en toto ??in 1 cassette labeled A1. B - Labeled/Fixative: Polyp CEX 1 a.c. X 2, formalin. Quantity/Size: Three, from 0.3 cm to 0.7 x 0.3 x 0.2 cm. Tissue Description: Polypoid, castillo-pink soft tissues. Sections/Processing: Entirely submitted in 1 cassette labeled B1. C - Labeled/Fixative: Polyp a.c. 15 mm, formalin. Quantity/Size: Multiple, from 0.2 cm to 0.8 x 0.3-0.3 cm. Tissue Description: Polypoid, castillo pink mucosal tissues. Sections/Processing: Entirely submitted in 3 cassettes labeled C1-C3. D - Labeled/Fixative: Polyps TC ??X 2, formalin. Quantity/Size: Two, 1.1 x 0.1 x 0.1 cm and 1.2 x 0.2 x 0.1 cm. Tissue Description: Strips of polypoid, castillo-pink mucosal tissue; differentially inked. Sections/Processing: Entirely submitted in 1 cassette labeled D1. ??pps 09/13/2022 2:39 PM EST [facility] GI Biopsy 09/07/2022 8:52 AM EST 09/07/2022 8:52 AM EST GI Biopsy 09/07/2022 8:52 AM EST 09/07/2022 8:52 AM EST GI Biopsy 09/07/2022 8:52 AM EST 09/07/2022 8:52 AM EST GI Biopsy 09/07/2022 8:52 AM EST 09/07/2022 8:52 AM EST Mayur Banuelos MD PATHOLOGY/CYTOLOG Y ORDERABLES [facility] [address] [place] [address] * Specimen to Pathology (09/07/2022 8:52 AM EST) AP Specimen 09/07/2022 8:52 AM EST 09/07/2022 8:52 AM EST Narrative [facility] - 09/07/2022 8:52 AM EST Specimen requisition ordered. ??Separate Pathology report to follow Mayur Banuelos MD PATHOLOGY/CYTOLOG Y ORDERABLES [facility] [address] * COLONOSCOPY (09/07/2022 7:41 AM EST) COLONOSCOPY [facility] Endoscopy Procedure Date: 09/07/2022 7:41 AM ? Patient Name: Diamond Gaming ? Date of : 1945 ? Age: 76 ? Order #: [id number] ? Instrument Name: [id number] ? Procedure: ? Colonoscopy Indications: ? High risk colon cancer ? surveillance: Personal history of ? colonic polyps Patient Profile: ? This is a 76 year old female. Refer ? to note in patient chart for ? documentation of history and ? physical. Last Colonoscopy: 2017. Providers: ? Mayur Banuelos MD, Navi R. ? [place] Martinez, Beckie Lee Referring : ?Mariluz Watts MD Medicines: ? Midazolam 5 [...] preparation was evaluated ? using the BBPS (Soso Bowel ? Preparation Scale) with scores of: [...] were successfully placed (MR ? conditional). Clip memorial counselor: Steris 11 and 16mm. ? There was [...] Watts MD GENERAL SURGICAL ORD ERABLES [employer] documented in this encounter Visit Diagnoses Not on filedocumented in this encounter Administered Medications Inactive Administered Medications - up to 3 most recent administrations Medication Order MAR Action Action Date Dose Rate Site fentaNYL (pf) (50 mcg/mL) multi-dose injection ONCE PRN, Starting on Sat09/07/22 at 0801, Until Sat09/07/22 at 1146, Intra-Operative (Intra-Procedure), Routine Given 09/07/2022 8:10 AM EST 25 mcg Given 09/07/2022 8:07 AM EST 25 mcg Given 09/07/2022 8:04 AM EST 50 mcg lactated ringers infusion 30 mL/hr, Intravenous, CONTINUOUS, Starting on Sat09/07/22 at 0830, Until Sat09/07/22 at 0923, Endoscopy (Intra-Procedure) New Bag 09/07/2022 8:00 AM EST 30 mL/hr 30 mL/hr midazolam (pf) (Versed) (1 mg/mL) multi-dose injection ONCE PRN, Starting on Sat09/07/22 at 0801, Until Sat09/07/22 at 1146, Intra-Operative (Intra-Procedure), Routine Given 09/07/2022 8:10 AM EST 1 mg Given 09/07/2022 8:07 AM EST 1 mg Given 09/07/2022 8:04 AM EST 1 mg documented in this encounter Active and Recently Administered Medications Times are shown in EST. Continuous Medication Order 09/05/2022 09/06/2022 09/07/2022 lactated ringers infusion (CANCELED) 30 mL/hr, Intravenous, CONTINUOUS, Starting on Sat09/07/22 at 0830, Until Sat09/07/22 at 0923, Endoscopy (Intra-Procedure) 0800 (New Bag - Prov ider: Navi Martinez RN) PRN Medication Order 09/05/2022 09/06/2022 09/07/2022 fentaNYL (pf) (50 mcg/mL) multi-dose injection (CANCELED) ONCE PRN, Starting on Sat09/07/22 at 0801, Until Sat09/07/22 at 1146, Intra-Operative (Intra-Procedure), Routine 0801 (Given - Provid er: Navi Martinez RN)0804 (Given - Provider: Navi Martinez RN)0807 (Given - Provider: Navi Martinez RN)0810 (Given - Provider: Navi Martinez RN) midazolam (pf) (Versed) (1 mg/mL) multi-dose injection (CANCELED) ONCE PRN, Starting on Sat09/07/22 at 0801, Until Sat09/07/22 at 1146, Intra-Operative (Intra-Procedure), Routine 0801 (Given - Provid er: Navi Martinez RN)0804 (Given - Provider: Navi Martinez RN)0807 (Given - Provider: Navi Martinez RN)0810 (Given - Provider: Navi Martinez RN) documented in this encounter Care Teams Regulatory Leader Relationship Specialty Start Date End Date Mariluz Watts MD [address] [place] [address] PCP - General 08/22/10 documented as of this encounter
--- OUTSIDE RECORDS SUMMARY | 2024-05-18 19:55 | XMS_ITS | Encounter Summary ---
[place] [address] Care Team Providers Care Corrugator Operator Helper Name Role Phone Mariluz Watts MD Primary Care Provider [phone] Encounter Details Date Type Department Care Team (Latest Contact Info) Description 10/02/2023 Travel Social History Tobacco Use Types Packs/Day [...] PM EST Office [place] [address] Paula Harris PA [facility] [place] [address] 01/26/2025 9:50 AM EDT Appointment Mammography/DXA at [place] [phone] Joan Deutsch, [facility] [place] [address] 01/26/2025 10:50 AM EDT Office Visit [place] [address] Joan Deutsch, [facility] [place] [address] documented as of this encounter Visit Diagnoses Not on filedocumented in this encounter Care Teams Corrugator Operator Helper Relationship Specialty Start Date End Date Mariluz Watts MD [address] [place] [address] PCP - General 08/22/10 documented as of this encounter
--- OUTSIDE RECORDS SUMMARY | 2024-05-18 19:55 | XMS_ITS | Encounter Summary ---
Author Organization [facility] [place] [address] Care Team Providers Care Hammer Fitter Name Role Phone Mariluz aWtts MD Primary Care Provider [phone] Encounter Details Date Type Department Care Team (Latest Contact Info) Description 01/21/2024 9:38 AM EDT - 01/21/2024 11:59 PM EDT Hospital Encounter Mammography/[place] [address] Joan Deutsch, [facility] [place] [address] Encounter for screening mammogram for breast cancer Discharge Disposition: Home Social History Tobacco Use Types Packs/Day Years Used Date Smoking Tobacco: Former Cigarettes 1 3 0 09/30/1965 - 09/30/1968 Smokeless Tobacco: Never Alcohol Use Standard Drinks/Week Comments No 0 (1 standard drink = 0.6 oz pur e alcohol) [facility], [facility] Inpatient Questions Answer Date Recorded Does Anyone [...] Sig Dispensed Refills Start Date End Date sulfamethoxazole-trimeth oprim (Bactrim) 400-80 mg tablet Take 1 tablet by mouth Daily at Noon. 01/01/2024 calcium carb-mag ox-zinc gluc 333-133-5 mg Tablet Take 1 tablet by mouth daily. magnesium oxide (Mag-Ox) 400 mg (241.3 mg magnesium) Tablet Take 400 mg by mouth daily. melatonin 5 mg tablet Take 10 mg by mouth nightly. ascorbic acid, vitamin C, (Vitamin C) 500 mg chewable tablet Take 500 mg by mouth daily. clindamycin (Cleocin T) 1 % Solution Apply topically 2 times daily. metroNIDAZOLE (Metrogel) 1 % Gel Apply topically daily. mupirocin (Bactroban) 2 % Ointment Apply topically 3 times daily. acetaminophen (Tylenol) 500 mg tablet Take 1,000 [...] Take 20 mg by mouth daily. 10/10/2021 documented as of this encounter Plan of Treatment Upcoming Encounters Date Type Department Care Team (Late st Contact Info) Description 11/16/2024 1:00 PM EST Office [place] [address] Paula Harris PA [facility] [place] [address] 01/26/2025 9:50 AM EDT Appointment Mammography[place] [address] Joan Deutsch APRN [facility] [place] [address] 01/26/2025 10:50 AM EDT Office [place] [address] Joan Deutsch APRN [facility] [place] [address] documented as of this encounter Procedures Procedure Name Priority Date/Time Associated Diagnosis Comments MAMMO SCREENING CAD AND CINDY BILATERAL Routine 01/21/2024 10:07 AM EDT Encounter for screening mammogram for breast cancer documented in this encounter Results * Mammo Screening Cad and Cindy Bilateral (01/21/2024 10:07 AM EDT) WORKSTATION ID [email or web address] [id number] RAD Anatomical Region Laterality Modality Breast Bilateral [...] who have questions please contact the health home care consultant that requested your imaging first. ? Narrative 01/21/2024 10:32 AM EDT EXAMINATION: MAMMO SCREENING CAD AND CINDY BILATERAL REASON FOR EXAM: Screening. History of [...] Joan Deutsch APRN IMG MAMMO ORDERABLE S documented in this encounter Visit Diagnoses Diagnosis Encounter for screening mammogram for breast cancer documented in this encounter Care Teams Hammer Fitter Relationship Specialty Start Date End Date Mariluz Watts MD [address] [place] [address] PCP - General 08/22/10 documented as of this encounter
--- OUTSIDE RECORDS SUMMARY | 2024-05-18 19:55 | XMS_ITS | Encounter Summary ---
Author Organization [facility] [place] [address] Care Team Providers Care Alpaca Farmer Name Role Phone Mariluz Watts MD Primary Care Provider [phone] Encounter Details Date Type Department Care Team (Late st Contact Info) Description 11/15/[address] [facility] [address] [place] [address] Terry Min MD [facility] [place] [address] Social History Tobacco Use Types Packs/Day Years [...] encounter Miscellaneous Notes * Telephone Encounter - Aislinn Dennyica - 11/15/2022 11:36 AM EST I returned a call to Diamond who reached out to me to schedule an appointment with Dr. Min. Patient asked me to leave a her a voicemail on her home line if she does not package pick up. I left a voicemailwith my direct callback number for Diamond to please return my call at her soonest convenience. documented in this encounter Plan of Treatment Upcoming Encounters Date Type Department Care Team (Late st Contact Info) Description 11/16/2024 1:00 PM EST Office [place] [address] Paula Harris PA [facility] [place] [address] 01/26/2025 9:50 AM EDT Appointment Mammography/[place] [phone] Joan Deutsch, [facility] [address] 01/26/2025 10:50 AM EDT Office Visit [place] [address] Joan Deutsch [facility] [place] [address] documented as of this encounter Visit Diagnoses Not on filedocumented in this encounter Care Teams Alpaca Farmer Relationship Specialty Start Date End Date Mariluz Watts MD [address] [place] [address] PCP - General 08/22/10 documented as of this encounter
--- OUTSIDE RECORDS SUMMARY | 2024-05-18 19:55 | XMS_ITS | Encounter Summary ---
Author Organization [facility] [place] [address] Care Team Providers Care Forest Officer Name Role Phone Mariluz Watts MD Primary Care Provider [phone] Reason for Visit * Reason Comments Follow-up Encounter Details Date Type Department Care Team (Latest Contact Info) Description 11/18/2023 2:00 PM EST Office [place] [address] Aria Higuera MD [facility] [place] [address] AIN III (anal intraepithelial neoplasia III); Anal condyloma; HPV (human papilloma virus) anogenital infection; Bleeding disorder; Atrial fibrillation, unspecified type; Chronic anticoagulation; OAB (overactive bladder); Urinary incontinence, unspecified type; Fecal urgency Social History Tobacco Use Types Packs/Day Years Used Date Smoking Tobacco: Former Cigarettes 1 3 0 09/30/1965 - 09/30/1968 Smokeless Tobacco: Never Alcohol Use Standard Drinks/Week Comments No 0 (1 standard drink = 0.6 oz pur e alcohol) [facility] Inpatient Questions Answer Date Recorded Does Anyone [...] Sign Reading Time Taken Comments Blood Pressure 106/62 11/18/2023 2:15 PM EST Pulse 89 11/18/2023 2:15 PM EST Temperature - - Respiratory Rate 16 11/18/2023 2:15 PM EST Oxygen Saturation 98% 11/18/2023 2:15 PM EST Inhaled Oxygen Concentration - - Weight 81.6 kg (180 lb) 11/18/2023 2:15 PM EST Height - - Body Mass Index 29.95 04/16/2023 12:21 PM EDT documented in this encounter Progress Notes * Aria Higuera MD - 11/18/2023 2:00 PM EST Colorectal Surgery Follow-Up Visit ~ Division of Colon and Rectal Surgery ~ [facility] PCP:Mariluz Watts MD HPI: Diamond Gaming is a pleasant 77 y.o. 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 She was last seen by our service in April 2023, at which time no evidence of recurrent dysplasia.She presents to clinic today for interval evaluation. Operative findings March 2023 - 2 separate areas of atypia at dentate line left posterior lateral and right posterior lateral - All areas removed with hemorrhoid surgery Surgical pathology March 2023 A - Interior LEFT posterior HPV, excision: - Condyloma acuminatum with focal high grade squamous intraepithelial lesion (AIN III) - Excision margin is uninvolved. - Hemorrhoid. B - Interior RIGHT posterior HPV, excision: - Condyloma acuminatum. - Hemorrhoid. Significant past medical history Patient has complex past medical history. She reports that she was diagnosed with a variant of Marfan syndrome, hypermobility syndrome. 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 She was reportedly seeing hematology here at [facility] in 2009 who diagnosed her [...] urology here at as well as in [place]. She has seen a pelvic floor physical therapist. She has been on several medications, including tolterodine. 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 She notes that her urinary incontinence has substantially improved. Went4 days without needing a pad. She does note some right sided perianal irritation since her Botox injection and is not sure if sheis reacting to the cleansing solution during her procedure. She notes that her skin has felt quite itchy and irritated. She is not using any products on the perianal skin at this time. She denies bleeding, pain with bowel movements. Bowel function is still somewhat irregular. Notes that sometimes she can have diarrhea associated with fecal urgency and other times difficulty with constipation. Shecan have 2-3 BM/day vs no BM x 2-3 days. She has been eating more fiber. Using colace prn. COREFO: 12/12/2022 7:56 AM 11/18/2023 1:31 PM COREFO Responses Incontinence Scale 36.11 36.11 Social Impact Scale 27.78 22.22 Frequency Scale 12.5 0 Stool Releated Aspects 0 25 Medication Scale 33.33 16.67 Total COREFO Score 26.92 25 The COREFO questionnaire is a validated questionnaire [...] (overactive bladder) N32.81 Pelvic floor dysfunction M62.89 Anal condyloma A63.0 Atrial fibrillation I48.91 Internal hemorrhoid K64.8 AIN III (anal intraepithelial neoplasia III) D01.3 Chronic anticoagulation Z79.01 Fecal urgency R15.2 Urinary incontinence R32 Past Medical History: Diagnosis Date Anxiety associated with depression Aortic valve sclerosis 07/25/2012 Atrial fibrillation Benign hypermobility syndrome Bleeding diathesis 07/25/2012 Bleeding disorder diag in 2009 Breast cancer, stage 2 01/25/2010 Cancer breast Chronic pain ibuprophen 600 mg 4x a day Degenerative joint disease Dermatochalasis of both upper eyelids 02/11/2019 Diverticulosis Genetic syndrome hypermobility syndrome GI bleeding 03/25/2011 Hypermobility syndrome Kidney disease group home current use of opiate analgesic Motion sickness [...] after a lower gi bleed 2007 BP 106/62 (BP Location (NBP): Left arm, Patient Position: Sitting, BP Cuff Sizes: Adult (25-34 cm)) Pulse 89 Resp 16 Wt 81.6 kg (180 lb) SpO2 98% BMI 29.95 kg/m?? Body mass index is 29.95 kg/m??. General Appearance: well developed and well [...] masses or organomegaly Ext: no cyanosis Anorectal Exam: The patient was positioned in the left lateral decubitus position with Linsey assisting. The perianal skin is healthy and intact. Patient was able to point to area that has felt more irritated/itchy in the recent weeks, no evidence of erythema or skin excoriation. There is no evidence of anal fissure, fistula, or abscess. There is no evidence of external skin lesion suggestive of recurrent HPV related lesions. The anus is closed. On EMILY, anal tone at rest is moderately decreased, squeeze tone is moderately decreased. There is normal relaxation with Valsalva. There is no palpable masses. There is palpable scar tissue in the posterior anal canal. There is no gross bleeding or tenderness to palpation. Anoscopy: A well lit and well-lubricated Hirschman anoscope was inserted into the anal canal and the entire distal rectum and anal canal were inspected. Findings include: Small scar versus regrowth just right to the posterior midline distal to the dentate line. A cotton swab was used to remove excess mucus within the distal rectal vault, does appear to be more consistent with scar versus regrowth. Otherwise, the remaining portions of the examined distal rectum and anal canal appeared normal without evidence of HPV lesions. Assessment: Diamond Gaming is a pleasant 77-year-old female with history of AIN III excised in March 2023. She had no evidence of disease on colorectal evaluation in April 2023. She has been feeling relatively well with persistent concerns of erratic bowel function. She has had a localized irritationright sided perianal skin, specifically correlated with the recent procedure (Botox injection into the detrusor muscle). On exam today, there is no evidence of obvious skin irritation. There is no erythema or skin excoriation. No evidence of external skin lesions suggestive of HPV. On anoscopy, there is a small focal area of what appears to be scar versus regrowth just right to the posterior midline distal to the dentate line. With close inspection with a cotton swab, does appear more consistent with scar. We briefly reviewed the etiology and pathogenesis of anal dysplasia, specifically history of HPV exposure. We will continue to follow closely, we will see her back in 6 months for repeat a noscopy, at which time we can reassess for recurrent growth. In the interim, we discussed importance of continuing to optimize her bowel function. She did have success using a fiber supplement in thepast and in the setting, would recommend restarting this. Patient is in agreement with this plan asdiscussed above. She has her contact information should she have any additional questions or concerns in the future. Plan: -Scar versus regrowth just right to the posterior midline distal to dentate line -Close interval follow-up with repeat anoscopy in 6 months Paula Harris PA-C Division of Colon and Rectal Surgery I have seen the patient in person and reviewed the above history and I agree with the details as written by Paula Harris PA-C. The assessment and plan were formulated in discussion with me and Trangree with them as documented. Pertinent Exam: I was present for the examination and agree with the note from Paula Hraris PA-C. Major issues addressed: #1 Reevaluation for possible reexcision in the future #2 Ongoing surveillance for AIN Plan: Agree with plans as documented Aria Higuera MD, MS, FACS, FASCRS Chief, Division of Colon and Rectal Surgery [facility] Pager [phone] 11/20/2023 8:16 AM documented in this encounter Plan of Treatment Upcoming Encounters Date Type Department Care Team (Late st Contact Info) Description 11/16/2024 1:00 PM EST Office [place] [address] Paula Harris PA [facility] [place] [address] 01/26/2025 9:50 AM EDT Appointment Mammography/[place] [address] Joan Deutsch, GE [facility] [place] [address] 01/26/2025 10:50 AM EDT Office [place] [address] Joan Deutsch, GE [facility] [place] [address] documented as of this encounter Visit Diagnoses Diagnosis 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, unspecified 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 Human papillomavirus in conditions classified elsewhere and of unspecified site Bleeding disorder Unspecified hemorrhagic conditions Atrial fibrillation, unspecified type Chronic anticoagulation Encounter for long-term (current) use of anticoagulants OAB (overactive bladder) Hypertonicity of bladder Urinary incontinence, unspecified type Fecal urgency documented in this encounter Care Teams Forest Officer Relationship Specialty Start Date End Date Mariluz Watts MD [address] [place] [address] PCP - General 08/22/10 documented as of this encounter
--- OUTSIDE RECORDS SUMMARY | 2024-05-18 19:55 | XMS_ITS | Encounter Summary ---
[place] [address] Care Team Providers Care Watch Hairspring Assembler Name Role Phone Mariluz Watts MD Primary Care Provider [phone] Encounter Details Date Type Department Care Team (Latest Contact Info) Description 11/18/2023 Travel Social History Tobacco Use Types Packs/Day [...] PM EST Office [place] [address] Paula Harris PA [facility] [place] [address] 01/26/2025 9:50 AM EDT Appointment Mammography/DXA at [place] [phone] Joan Deutsch, [facility] [address] 01/26/2025 10:50 AM EDT Office [place] [address] Joan Deutsch, [facility] [address] documented as of this encounter Visit Diagnoses Not on filedocumented in this encounter Care Teams Watch Hairspring Assembler Relationship Specialty Start Date End Date Mariluz Watts MD [address] [place] [address] PCP - General 08/22/10 documented as of this encounter
--- OUTSIDE RECORDS SUMMARY | 2024-05-18 19:55 | XMS_ITS | Encounter Summary ---
Author Organization [facility] [place] [address] Care Team Providers Care Table Lever Operator Name Role Phone Mariluz Watts MD Primary Care Provider [phone] Encounter Details Date Type Department Care Team (Latest Contact Info) Description 04/05/2023 Travel Social History Tobacco Use Types Packs/Day [...] PM EST Office [place] [address] Paula Harris PA [facility] [place] [address] 01/26/2025 9:50 AM EDT Appointment Mammography/[place] [address] Joan Deutsch APRN [facility] [place] [address] 01/26/2025 10:50 AM EDT Office [place] [address] Joan Deutsch, GE [facility] [place] [address] documented as of this encounter Visit Diagnoses Not on filedocumented in this encounter Care Teams Table Lever Operator Relationship Specialty Start Date End Date Mariluz Watts MD [address] [place] [address] PCP - General 08/22/10 documented as of this encounter
--- OUTSIDE RECORDS SUMMARY | 2024-05-18 19:55 | XMS_ITS | Encounter Summary ---
Author Organization [facility] [place] [address] Care Team Providers Care Electrical Logging Operator Name Role Phone Mariluz Watts MD Primary Care Provider [phone] Reason for Visit * Reason Comments Rosacea Encounter Details Date Type Department Care Team (Late st Contact Info) Description 04/23/2024 4:20 PM EDT Office Visit Dermatology at [facility] [address] [place] [address] Cornell Hernández MD [facility] [place] [address] Rosacea Social History Tobacco Use Types Packs/Day Years Used Date Smoking Tobacco: Former Cigarettes 1 3 0 09/30/1965 - 09/30/1968 Smokeless Tobacco: Never Alcohol Use Standard Drinks/Week Comments No 0 (1 standard drink = 0.6 oz pur e alcohol) [facility] Inpatient Questions Answer Date Recorded Does Anyone [...] as of this encounter Progress Notes * Cornell Hernández MD - 04/23/2024 4:20 PM EDT Images from the original note were not included. DEPARTMENT OF DERMATOLOGY Medical Dermatology Clinic Provider: Cornell Hernández MD Patient's preferred name Diamond Preferred contact [...] of Present Illness: Diamond Gaming is a 78 y.o. Patient returns to clinic today for rosaceafollow up. Patient reports: - Near clearance with compounded cream Last visit at Dermatology: 01/21/2024 Last visit with this provider: Visit date not found Medications: Reviewed in eD-H Allergies: Reviewed in eD-H Skin Examination: Focused skin examination of the face was normal with the exception of the findings below. Assessment/Plan #. Papulopustular and Erythemato-telangiectatic Rosacea, improved - clear on examination - First evaluated here in 01/2023 - Scraping of pustule negative for Demedex on 04/05/23 - Discussed common triggers, including alcohol, exercise, caffeine, spicy foods, sun exposure, and extreme temperatures. - Current treatment: azelaic acid 15% - ivermectin 1% - metronidazole 1% cream bid - Continue Skin Medicinals Rx: azelaic acid 15% - ivermectin 1% - metronidazole 1% cream - apply toface BID - Email: [email or web address] - Phone number: [phone] - Discussed redness is best treated with V-Beam. Pt will consider and schedule consult with Dr. Cruz. Discussed $200 for consultation and $100 goes towards treatment. - Recommended OTC tinted sunscreens #. Sebaceous Hyperplasia - Scattered yellowish papules with central umbilication on the face. - Patient reassured of benign nature. - No treatment necessary. Discussed with patient that treatment/removal would be considered cosmetic, therefore insurance would not cover it and patient would be expected to pay out of pocket, in full, at time of service. - Quoted $100 to have up to 10 papules extracted; patient will schedule if interested. #. Dilated Pore - resolved - Noted and extracted at appointment in 12/2023 - Not present on examination today Other: OTC skin products discussed RTC: Yearly for refills []Note routed to lead relay tester []Recall placed in scheduling system []Appointment scheduled at checkout Scribe attestation: Thu Franco [facility] has performed the documentation for this encounter inthe presence of and acting as a scribe for Cornell Hernández MD. I performed the above scribed service and agree with the accuracy of the documentation in this encounter. Reviewed and signed by: Cornell Hernández MD Dermatology [facility] Staff culinary artist: José Manuel Kelly MD Dermatology [facility] * José Manuel Kelly MD - 04/23/2024 4:20 PM EDT I was the supervising physician working with the Dermatology resident, Cornell Hernández MD, in the care of this Dermatology patient in person. For the purposes of billing, the resident provided the care. I have reviewed the encounter note details and level of service. JOSÉ MANUEL KELLY MD Staff Section Hand Department of Dermatology [facility] documented in this encounter Plan of Treatment Upcoming Encounters Date Type Department Care Team (Late st Contact Info) Description 11/16/2024 1:00 PM EST Office Visit General Surgery at [place] [address] Paula Harris PA [facility] [place] [address] 01/26/2025 9:50 AM EDT Appointment Mammography/[place] [address] Joan Deutsch, [facility] [place] [address] 01/26/2025 10:50 AM EDT Office Visit General Surgery at [place] [phone] Joan Deutsch, [facility] [place] [address] documented as of this encounter Visit Diagnoses Diagnosis Rosacea documented in this encounter Care Teams Electrical Logging Operator Relationship Specialty Start Date End Date Mariluz Watts MD [address] [place] [address] PCP - General 08/22/10 documented as of this encounter
--- OUTSIDE RECORDS SUMMARY | 2024-05-18 19:55 | XMS_ITS | Encounter Summary ---
[place] [address] Care Team Providers Care Semiconductor Manufacturing Technician Name Role Phone Mariluz Watts MD Primary Care Provider [phone] Encounter Details Date Type Department Care Team (Late st Contact Info) Description 04/05/2023 11:00 AM EDT [place] [address] Social History Tobacco Use Types Packs/Day Years [...] Sign Reading Time Taken Comments Blood Pressure 135/94 04/05/2023 10:22 AM EDT Pulse 82 04/05/2023 10:22 AM EDT Temperature - - Respiratory Rate - - Oxygen Saturation 97% 04/05/2023 10:22 AM EDT Inhaled Oxygen Concentration - - Weight 95.7 kg (211 lb) 04/05/2023 10:22 AM EDT Height 165.1 cm (5' 5) 04/05/2023 10:22 AM EDT Body Mass Index 35.11 04/05/2023 10:22 AM EDT documented in this encounter Plan of Treatment Upcoming Encounters Date Type Department Care Team (Late st Contact Info) Description 11/16/2024 1:00 PM EST Office Visit General Surgery at [place] [phone] Paula Harris PA [facility] [place] [address] 01/26/2025 9:50 AM EDT Appointment Mammography/DXA at [place] [phone] Joan Deutsch, TANK DRIVER [facility] [place] [address] 01/26/2025 10:50 AM EDT Office [place] [address] Joan Deutsch, [facility] [place] [address] documented as of this encounter Visit Diagnoses Not on filedocumented in this encounter Care Teams Semiconductor Manufacturing Technician Relationship Specialty Start Date End Date Mariluz Watts MD [address] [place] [address] [address] [facility] [address] [place] [address] PCP - General 08/22/10 documented as of this encounter
--- OUTSIDE RECORDS SUMMARY | 2024-05-18 19:55 | XMS_ITS | Encounter Summary ---
Author Organization [facility] [place] [address] Care Team Providers Care Manufacturing Engineer Assembly Name Role Phone Mariluz Watts MD Primary Care Provider [phone] Encounter Details Date Type Department Care Team (Late st Contact Info) Description 02/12/2023 9:20 AM EDT Office Visit Dermatology at [place] [address] [place] [address] Cornell Hernández MD [facility] [place] [address] Rosacea; Sebaceous hyperplasia of face; Telangiectasias Social History Tobacco Use Types Packs/Day Years [...] Progress Notes * Cornell Hernández MD - 02/12/2023 9:20 AM EDT Images from the original note were not included. DEPARTMENT OF DERMATOLOGY Medical Dermatology Clinic Provider: Cornell Hernández MD Patient's preferred name Diamond Preferred contact method for results []Phone []myD-H []Letter Detailed phone message OK? Yes Are there any other people with whom we may discuss your care? No Past Medical History Date, location, treatment Melanoma No Dysplastic nevi No SCC No BCC No AKs No UV Exposure & Protection N Other relevant past medical history Unknown Family History Details Melanoma Unknown NMSC Unknown Other relevant family history Social History Occupation: Hobbies: Other: Pre-Procedure Screening Details Allergy to lidocaine, epinephrine, Dermabond, chlorhexidine, or adhesives Bleeding disorder or blood thinners Implanted devices (Pacemaker, defibrillator, deep brain stimulator, cochlear implant) History of Present Illness: Diamond Gaming is a 77 y.o. Patient returns to clinic today for acne. - History of rosacea, previously prescribed topical metronidazole - First appeared in May of 2020 after wearing masks. - Minimal to no relief with topical metronidazole - No specific triggers Last visit at Dermatology: 08/04/2020 Last visit with this provider: Visit date not found Medications: Reviewed in eD-H Allergies: Reviewed in eD-H Skin Examination: Focused skin examination of the face was normal with the exception of the findings below. Assessment/Plan #. Papulopustular Rosacea - Scattered red, acneiform papules/pustules in a background of erythema on the central face. Scattered telangiectasias. - Discussed common triggers, including alcohol, exercise, caffeine, spicy foods, sun exposure, and extreme temperatures. - Discussed treatment options, including doxycycline, tretinoin, azealic acid, and amlactin rapid relief lotion. - Recommended AmLactin Rapid Relief lotion application the face daily. - Start Rx azelaic acid 15% gel: Apply topically to the face twice daily in the morning and night. - Due to allergy of tetracyclines (anaphylaxis), avoiding doxycycline; will consider alternative antibiotic at next visit. - Will consider adding tretinoin at next visit or switching to compounded azelaic cgbg-trwnavumedgau-eqhuprparj cream from [employer] [facility]. - Briefly discussed the option of treating cosmetically with V-Beam. Patient is not interested at this time. #. Sebaceous hyperplasia - yellow papules with crown of vessels and central dell on dermoscopy - Advised lesions are benign increase in size of glands and that if bothersome can be treated cosmetically Other: ??? Sun protection discussed (protective clothing and SPF30+ broad-spectrum sunscreen) ??? OTC skin products discussed RTC: 1-2 months for rosacea []Note routed to secretary bookkeeper []Recall placed in scheduling system [x]Appointment scheduled at checkout Scribe attestation: Danyel Anna Schafer has performed the documentation for this encounter in the presence of and acting as a scribe for Cornell Hernández MD. I performed the above scribed service and agree with the accuracy of the documentation in this encounter. Reviewed and signed by: Cornell Hernández MD Dermatology [facility] Patient seen and evaluated with staff vp analysis: Gardenia Cruz MD Dermatology [facility] * Gardenia Cruz MD - 02/12/2023 9:20 AM EDT I directly supervised Dr. Hernández during this office visit. Dr. Hernández presented the history and physical exam to me. I, then, saw and examined this patient with Dr. Hernández. We reviewed the history and pertinent details and I confirmed the physical findings. I agree with the details of the history and physical exam as documented in Dr. Hernández's note. Gardenia Cruz MD Staff Physician documented in this encounter Plan of Treatment Upcoming Encounters Date Type Department Care Team (Late st Contact Info) Description 11/16/2024 1:00 PM EST Office [place] [address] Paual Harris PA [facility] [address] 01/26/2025 9:50 AM EDT Appointment Mammography/DXA at [place] [phone] Joan Deutsch [facility] [address] 01/26/2025 10:50 AM EDT Office [place] [phone] Joan Deutsch, [facility] [place] [address] documented as of this encounter Visit Diagnoses Diagnosis Rosacea Sebaceous hyperplasia of face Other specified disease of sebaceous glands Telangiectasias Other and unspecified capillary diseases documented in this encounter Care Teams Manufacturing Engineer Assembly Relationship Specialty Start Date End Date Mariluz Watts MD [address] [place] [address] PCP - General 08/22/10 documented as of this encounter
--- OUTSIDE RECORDS SUMMARY | 2024-05-18 19:55 | XMS_ITS | Encounter Summary ---
Author Organization [facility] Address [facility] [place] [address] Care Team Providers Care Medical Customer Service Representative Name Role Phone Mariluz Watts MD Primary Care Provider [phone] Encounter Details Date Type Department Care Team (Late st Contact Info) Description 07/31/2023 Telephone Dermatology at [facility] [address] [place] [address] Cornell Hernández MD [facility] [address] [place] [address] Social History Tobacco Use Types Packs/Day Years [...] encounter Miscellaneous Notes * Telephone Encounter - Selam Lao CMA - 07/31/2023 12:44 PM EDT PA submitted to the insurance today and documented in a separate encounter. Please refer to that encounter. * Telephone Encounter - Julianne Jay - 07/31/2023 12:19 PM EDT Diamond Gaming called to let you know that she will need a PA for the ivermectin (Soolantra) 1 % Cream. documented in this encounter Plan of Treatment Upcoming Encounters Date Type Department Care Team (Late st Contact Info) Description 11/16/2024 1:00 PM EST Office Visit [place] [address] Paula Harris PA [facility] [place] [address] 01/26/2025 9:50 AM EDT Appointment Mammography/DXA at [place] [phone] Joan Deutsch APRN [facility] [place] [address] 01/26/2025 10:50 AM EDT Office Visit [place] [address] Joan Deutsch APRN [facility] [place] [address] documented as of this encounter Visit Diagnoses Not on filedocumented in this encounter Care Teams Medical Customer Service Representative Relationship Specialty Start Date End Date Dobbertin, Mariluz, MD [address] [place] [address] PCP - General 08/22/10 documented as of this encounter
--- OUTSIDE RECORDS SUMMARY | 2024-05-18 19:55 | XMS_ITS | Encounter Summary ---
Author Organization [facility] [place] [address] Care Team Providers Care Pick And Shovel Man Name Role Phone Mariluz Watts MD Primary Care Provider [phone] Reason for Visit * Reason Onset Date Comments Prior Authorization 07/31/2023 Ivermectin Encounter Details Date Type Department Care Team (Late st Contact Info) Description 07/31/2023 Telephone Dermatology at [facility] [address] [place] [address] Selam Lao, [facility] Prior Authorization (Ivermectin) Social History Tobacco Use Types Packs/Day Years [...] Encounter - Selam Lao CMA - 07/31/2023 12:47 PM EDTSummary: Approved Submitted Date: Submitted Date: 07/31/2023 Next Review Date: Next Review Date: 07/30/2024 PA Outcome: PA Approval Medication Prior Authorization Approval Approved: Ivermectin 1% cream Start Date: 07/01/2023 End Date: 07/30/2024 Case/Reference #: [id number] Approval Letter will be scanned into media once received. * Telephone Encounter - Selam Lao CMA - 07/31/2023 12:40 PM EDT PA Submitted Submitted Date: Submitted Date: 07/31/2023 Medication Prior Authorization Patient: Diamond Gaming Patient : 1945 Insurance Company: [employer] Sent via: [employer] Bajwa: [id number] Physician: Cornell Hernández MD Medication Requested: ivermectin (Soolantra) 1 % Cream Frequency/Sig: Apply topically to the affected areas of the face twice daily. Disp: 45g Refills: 2 Currently taking: no If yes, how long: Diagnosis for this medication: : Rosacea [L71.9] Prior medications trialed in this patient: Medication: tretinoin cream Approx Dates: Outcome/Adverse Reactions: Inadequate response Medication: Metronidazole tablet Approx Dates: 03/2023 Outcome/Adverse Reactions: Inadequate response Medication: Metronidazole gel Approx Dates: Outcome/Adverse Reactions: Inadequate response Medication: Azelaic acid Approx Dates: 01/2023-current Outcome/Adverse Reactions: inadequate response Additional Notes: documented in this encounter Plan of Treatment Upcoming Encounters Date Type Department Care Team (Late st Contact Info) Description 11/16/2024 1:00 PM EST Office [place] [address] Paula Harris, PA [facility] [place] [address] 01/26/2025 9:50 AM EDT Appointment Mammography/DXA at [place] [phone] Joan Deutsch, [facility] [place] [address] 01/26/2025 10:50 AM EDT Office [place] [phone] Joan Deutsch, [employer] [facility] [place] [address] documented as of this encounter Visit Diagnoses Not on filedocumented in this encounter Care Teams Pick And Shovel Man Relationship Specialty Start Date End Date Mariluz Watts MD [address] [place] [address] [address] [facility] [address] [place] [address] PCP - General 08/22/10 documented as of this encounter
--- OUTSIDE RECORDS SUMMARY | 2024-05-18 19:55 | XMS_ITS | Encounter Summary ---
[facility] [place] [address] Care Team Providers Care Battery Vent Plug Inserter Name Role Phone Mariluz Watts MD Primary Care Provider [phone] Encounter Details Date Type Department Care Team (Late st Contact Info) Description 01/21/2024 10:50 AM EDT Office Visit [place] [address] Joan Deutsch APRN [facility] [place] [address] Encounter for screening mammogram for breast cancer; History of breast cancer Social History Tobacco Use Types Packs/Day Years Used Date Smoking Tobacco: Former Cigarettes 1 3 0 09/30/1965 - 09/30/1968 Smokeless Tobacco: Never Alcohol Use Standard Drinks/Week Comments No 0 (1 standard drink = 0.6 oz pur e alcohol) [facility] Inpatient Questions Answer Date Recorded Does [...] of this encounter Progress Notes * Joan Deutsch, UTILITY AIRCREWMAN - 01/21/2024 10:50 AM EDT Diamond is a 78 y.o[address] Pt of Dr. Marquez who returns [...] carcinoma with lobular features Tumor Grade: Intermediate Uxytpl-Xghkc-Rmkmzwttaw Score: 7 Tubular Differentiation: 3 Mitotic Rate: [...] sentinel nodes: 2 (Specimen A - Right [place] node) No. positive for carcinoma: 1 (H&E) No. with IHC (+) cells only: 0 (cells not seen by H&E, see Note*) No. negative for carcinoma: 1 (both H&E and IHC For positive nodes: Largest kristi deposit 0.2 cm Extranodal extension Absent Estrogen/Progestin receptors: Performed on blocks C2 and C11 ER immunoreactivity: Positive (see Diagnostic hanna*) OH immunoreactivity: Positive (see Diagnostic hanna*) HER2/shonda expression by FISH: Negative Kimi was returned to the OR for deep margin excision. This was negative for residual malignancy. Kimi declined chemotherapy and proceeded to whole breast xrt. She completed 5 years of arimidex. She is still bothered by her smaller than expected breast size after reduction. Kimi has been feeling well. She had a norovirus and her GI system is slow to recoup. She had a fall over winter but didn't break any bones. She does have osteoporosis. She was doing a strength class a few times a week. She denies any new aches or pains, cp, sob, and headaches. On exam, well appearing and in nad. No cervical, supraclavicular or axillary adenopathy. B/L reduction mammoplasty incisions well healed. Fat necrosis in the right breast 10:00 1x2cm and left breast at 12:00 and 3:00 at areolar border approximately 1cm. No additional masses appreciated. Mammogram today: cat 2- almost entirely fatty Comprehensive Breast Program Surgery Follow Up Note armRange of motion of surgical arm complete Lymphedema present No Cosmesis-surgeon reported Cosmesis-patient reported Good Good Local or regional recurrence No Contralateral cancer present No Distant recurrence present No Date of last follow up 01/21/24 A/P: Doing well without evidence of recurrence or metastatic disease. Plan follow up in 1 year with bilateral mammogram. She knows to call with questions in the interim. Joan Deutsch APRN documented in this encounter Plan of Treatment Upcoming Encounters Date Type Department Care Team (Late st Contact Info) Description 11/16/2024 1:00 PM EST Office Visit [place] [phone] Paula Harris PA [facility] [place] [address] 01/26/2025 9:50 AM EDT Appointment Mammography/[place] [phone] Joan Deutsch, UTILITY AIRCREWMAN [facility] [place] [address] 01/26/2025 10:50 AM EDT Office Visit [place] [phone] Joan Deutsch, [facility] [place] [address] Scheduled Orders Name Type Priority Associated Diagnoses Orde r Schedule Mammo Screening Cad and Irvin Bilateral Imaging Routine Encounter for screening mammogram for breast cancer Expected: 01/20/2025, Expires: 07/22/2025 documented as of this encounter Visit Diagnoses Diagnosis Encounter for screening mammogram for breast cancer History of breast cancer Personal history of malignant neoplasm of breast documented in this encounter Care Teams Battery Vent Plug Inserter Relationship Specialty Start Date End Date Mariluz Watts MD [address] [address] PCP - General 08/22/10 documented as of this encounter
--- OUTSIDE RECORDS SUMMARY | 2024-05-18 19:55 | XMS_ITS | Encounter Summary ---
[place] [address] Care Team Providers Care Head Loft Worker Name Role Phone Mariluz Watts MD Primary Care Provider [phone] Encounter Details Date Type Department Care Team (Latest Contact Info) Description 01/21/2024 Travel Social History Tobacco Use Types Packs/Day [...] PM EST Office [place] [address] Paula Harris PA [facility] [place] [address] 01/26/2025 9:50 AM EDT Appointment Mammography/DXA at [place] [phone] Joan Deutsch, [facility] [place] [address] 01/26/2025 10:50 AM EDT Office [place] [address] Joan Deutsch, [facility] [place] [address] documented as of this encounter Visit Diagnoses Not on filedocumented in this encounter Care Teams Head Loft Worker Relationship Specialty Start Date End Date Mariluz Watts MD [address] [facility] [address] [place] [address] PCP - General 08/22/10 documented as of this encounter
--- OUTSIDE RECORDS SUMMARY | 2024-05-18 19:55 | XMS_ITS | Encounter Summary ---
Author Organization [facility] [place] [address] Care Team Providers Care Corporate Consultant Name Role Phone Mariluz Watts MD Primary Care Provider [phone] Reason for Visit * Reason Comments Skin Lesion Encounter Details Date Type Department Care Team (Late st Contact Info) Description 01/21/2024 8:40 AM EDT Office Visit Dermatology at [facility] [address] [place] [address] Meagan Franks MD [facility] [place] [address] Telangiectasia Social History Tobacco Use Types Packs/Day Years Used Date Smoking Tobacco: Former Cigarettes 1 3 0 09/30/1965 - 09/30/1968 Smokeless Tobacco: Never Alcohol Use Standard Drinks/Week Comments No 0 (1 standard drink = 0.6 oz pur e alcohol) [facility] Inpatient Questions Answer Date Recorded Does Anyone [...] as of this encounter Progress Notes * Meagan Franks MD - 01/21/2024 8:40 AM EDT Images from the original note were not included. DEPARTMENT OF DERMATOLOGY Medical Dermatology Clinic Provider: HTR NEW RED Patient's preferred name Diamnod Preferred contact method for results [x]Phone []myD-H [...] Diamond Gaming is a 78 y.o. Patient is new and self- referred to the clinic for spot of concern on nose: -Red Lesion on nose present for few months. Does not resolve. Bleeds when picks at it. Medications: Reviewed in eD-H Allergies: Reviewed in eD-H Skin Examination: Focused skin examination of the nose was normal with the exception of the findings below. Assessment/Plan # Non specific dilated pore with surrounding mild telangiectasia; right nasal supratip - contents removed with comedone extractor Recheck in March with Dr Hernández. Patient to make appt. Figure 1 Photo(s) taken and charted with patient's verbal consent. Other: N/A RTC: March with Dr Hernández for follow up nose [x]Note routed to legal secretary []Recall placed in scheduling system []Appointment scheduled at checkout Scribe attestation: JOSEFINA RUIZ LPN has performed the documentation for this encounter in the presence of and acting as a scribe for MEAGAN FRANKS MD. I performed the above scribed service and agree with the accuracy of the documentation in this encounter. Reviewed and signed by: MEAGAN FRANKS MD Dermatology [facility] documented in this encounter Plan of Treatment Upcoming Encounters Date Type Department Care Team (Late st Contact Info) Description 11/16/2024 1:00 PM EST Office [place] [address] Paula Harris PA [facility] [place] [address] 01/26/2025 9:50 AM EDT Appointment Mammography/[place] [address] Joan Deutsch [facility] [place] [address] 01/26/2025 10:50 AM EDT Office Visit General Surgery at [place] [phone] Joan Deutsch [facility] [place] [address] documented as of this encounter Visit Diagnoses Diagnosis Telangiectasia Other and unspecified capillary diseases documented in this encounter Care Teams Corporate Consultant Relationship Specialty Start Date End Date Mariluz Watts MD [address] [place] [address] [address] [facility] [address] [place] [address] PCP - General 08/22/10 documented as of this encounter
--- OUTSIDE RECORDS SUMMARY | 2024-05-18 19:55 | XMS_ITS | Encounter Summary ---
Author Organization [facility] [place] [address] Care Team Providers Care Domestic Cleaner Name Role Phone Mariluz Watts MD Primary Care Provider [phone] Encounter Details Date Type Department Care Team (Late st Contact Info) Description 04/16/2023 1:15 PM EDT - 04/16/2023 3:30 PM EDT Surgery [place] [address] Aria Higuera MD [facility] [place] [address] ANORECTAL EXAM, REQUIRING ANESTHESIA, DIAGNOSTIC (WRVU 1.8) Social History Tobacco Use Types Packs/Day Years [...] Sign Reading Time Taken Comments Blood Pressure 118/78 04/16/2023 12:21 PM EDT Pulse 94 04/16/2023 12:21 PM EDT Temperature 36.8 ??C (98.2 ??F) 04/16/2023 12:21 PM E DT Respiratory Rate 17 04/16/2023 12:21 PM EDT Oxygen Saturation 96% 04/16/2023 12:21 PM EDT Inhaled Oxygen Concentration - - [...] 15 minutes 4X/day. Pain medications Please take [id number] pain medications for post-operative discomfort.(Please continue to [...] Center 05/20/2023 2:00 PM Aria Higuera MD [facility] SUR[facility] 07/08/2023 10:20 AM Cornell Hernández MD [facility], [place] [address] documented in this encounter Medications at Time [...] past. [facility] who diagnosed her with this (Dr. Villalba). She now currently sees Dr. De La Cruz.Has received preop TXA with prior orthopedic surgery. Patient has diagnosis of atrial fibrillation,saw cardiology at [facility], she is now on daily Eliquis. Stopped [...] Operative Note Patient Name: Diamond Gaming : [id number] MR#: [id number] Case Date: 04/16/2023 Surgeon: Surgeon(s) and Role: [...] LEFT posterior hpv eD-H Order Id number [id number] SPECIMEN TO PATHOLOGY hemorrhoidectomy/hpv interior RIGHT posterior [...] Higuera MD - 04/16/2023 5:34 PM EDT [facility] Operative Note Patient Name: Diamond Gaming : [id number] MR#: [id number] Case Date: 04/16/2023 Surgeon: Surgeon(s) and Role: [...] LEFT posterior hpv eD-H Order Id number [id number] SPECIMEN TO PATHOLOGY hemorrhoidectomy/hpv interior RIGHT posterior [...] PM EST Office [place] [phone] Paula Harris PA [facility] [place] [address] 01/26/2025 9:50 AM EDT Appointment Mammography/[place] [phone] Joan Deutsch APRN [facility] [place] [address] 01/26/2025 10:50 AM EDT Office [place] [phone] Joan Deutsch APRN [facility] [place] [place] [address] documented as of this encounter Procedures Procedure Name Priority Date/Time Associated Diagnosis Comments SPECIMEN TO PATHOLOGY Routine 04/16/2023 6:01 PM EDT SURGICAL PATHOLOGY REPORT Routine 2022 5:47 PM EDT SPECIMEN TO PATHOLOGY Routine 04/16/2023 5:47 PM EDT Hemorrhoidectomy, Int/Ext, Simple ([id number]) 04/16/2023 5:07 PM EDT hemorrhoidectomy/ hpv Destruction Lesion Anus Simple Electrodesiccation ([id number]) 04/16/2023 5:07 PM EDT hemorrhoidectomy/ hpv Surg Diagnostic Exam, Anorectal ([id number]) 04/16/2023 5:07 PM EDT hemorrhoidectomy/ hpv documented in this encounter Results * Specimen to Pathology (04/16/2023 6:01 PM EDT) AP Specimen 04/16/2023 6:01 PM EDT 04/16/2023 6:01 PM EDT Narrative [facility] - 04/16/2023 6:01 PM EDT Specimen requisition ordered. ??Separate Pathology report to follow Aria Higuera MD PATHOLOGY/CYTOLOGY O JOSELUIS Performing Organization Address City/State/[facility] Co de Phone Number [facility] [place] [address] * Surgical Pathology Report (04/16/2023 5:47 PM EDT) Final Diagnosis [id number] ? Location: [facility]; [facility]; The signing pathologist has (i) examined the [...] MD Verified: ??04/23/2023 16:25 ??Pathologist Performed at: ??-[facility] Dept. of Pathology, [place] [id number] Telegraphic Typewriter Operator: Uyen Willis MD, AP, ??CLIA Certificate: [id number] ADDITIONAL STUDIES Whole slide scan: A1 SPECIMEN(S) [...] vasculature. Sections/Processin g: Inked and serially sectioned. Blackjack Dealer sections in 1 cassette labeled B1. ??vmj 04/23/2023 4:25 PM EDT [facility] ANAL STRUCTURE / Unknown 04/16/2023 5:47 PM EDT 04/16/2023 5:47 PM EDT ANAL STRUCTURE / Unknown 04/16/2023 5:47 PM EDT 04/16/2023 5:47 PM EDT Aria Higuera MD PATHOLOGY/CYTOLOGY O RDERABLES [facility] [place] [address] [facility] [place] [place] [address] * Specimen to Pathology (04/16/2023 5:47 PM EDT) AP Specimen 04/16/2023 5:47 PM EDT 04/16/2023 5:47 PM EDT Narrative [facility] - 04/16/2023 5:47 PM EDT Specimen requisition ordered. ??Separate Pathology report to follow Aria Higuera MD PATHOLOGY/CYT[place] [address] documented in this encounter Visit Diagnoses Not [...] Given 04/16/2023 12:30 PM EDT 1,000 mg BUpivacaine (pf) (Marcaine) (5 mg/mL) 0.5% injection PRN, Starting on Sat04/16/23 at 1823, Until Sat04/16/23 at 2217, Intra-Operative (Intra-Procedure), Routine Given 04/16/2023 6:23 PM EDT 30 mLs 19- Surgical Site oxyCODONE (Roxicodone) tablet 5 mg 5 mg, [...] Until Sat04/16/23 at 2217, Intra-Operative (Intra-Procedure), Routine 182 (Given - Provid er: Aria Higuera MD) oxyCODONE (Roxicodone) tablet 5 mg 5 mg, Oral, EVERY 4 HOURS PRN, Starting on Sat04/16/23 at 1823, Until Sat04/16/23 at 2217, Pain, Routine 1905 (Given - Provid er: Tiffany Morales RN) documented in this encounter Care Teams Domestic Cleaner Relationship Specialty Start Date End Date Mariluz Watts MD [address] [facility] [address] [place] [address] PCP - General 08/22/10 documented as of this encounter
--- OUTSIDE RECORDS SUMMARY | 2024-05-18 19:55 | XMS_ITS | Encounter Summary ---
Author Organization [facility] [place] [address] Care Team Providers Care Dock Superintendent Name Role Phone Mariluz Watts MD Primary Care Provider [phone] Reason for Visit * Reason Comments Follow-up Encounter Details Date Type Department Care Team (Late st Contact Info) Description 01/15/2023 3:30 PM EDT Office Visit Hematology [place] [address] Abrahan Merlos MD [facility] HEMATOLOGY/[place] [address] Malignant neoplasm of right breast, stage 2 Social History Tobacco Use Types Packs/Day Years [...] Sign Reading Time Taken Comments Blood Pressure 139/92 01/15/2023 3:07 PM EDT Pulse 89 01/15/2023 3:07 PM EDT Temperature 36.6 ??C (97.9 ??F) 01/15/2023 3:07 PM ED T Respiratory Rate 20 01/15/2023 3:07 PM EDT Oxygen Saturation 95% 01/15/2023 3:07 PM EDT Inhaled Oxygen Concentration - - Weight 95.7 kg (210 lb 15.7 oz) 01/15/2023 3:07 PM EDT Height 165.1 cm (5' 5) 01/15/2023 3:07 PM EDT Body Mass Index 35.11 01/15/2023 3:07 PM EDT documented in this encounter Progress Notes * Abrahan Merlos MD - 01/15/2023 3:30 PM EDT Subjective: Patient ID: Diamond Gaming is a 77 y.o. female with Stage II breast cancer, seen for yearly followup. HPI Ms. Gaming presented on screening mammography January 04, 2010 with two masses in the right breast, kristal stable fibroglandular pattern without change on the [...] to begin treatment with anastrozole on May 28, 2010. She received radiotherapy to the right breast from May 15 through June 22, to a dose of 50.4 Gy. Since starting anastrozole she has had an increase in her rosacea and in the wrinkling of the skin of her face, she has intermittent urinary incontinence and vaginal dryness, she an increased frequency of hot flashes, and increased arthralgias of her left hand and thumb, wrists, feet, and ankles. She completed five years oftherapy with anastrozole on May 13, 2015. Interval History: Diamond has a number of physical problems. She has chronic urinary incontinence which was worsened by two urinary tract infections in September, and she soaks through three to eight pads per day. She has chronic atrial fibrillation. She has a large hiatal hernia which gives her shortness of breath when she bends over. She has periodic diarrhea and she has frontal sinus headaches. She has pain in her neck, shoulders, lower back, knees, hips, feet, and hands. She is scheduled for ahemorrhoidectomy with Dr. Higuera on April 16. She has an undefined bleeding disorder, she was seen by Dr. 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 Despite the amicar, Diamond did have excessive bleeding with procedures. Diamond walks her dog for 20 minutes a day, she attends an exercise class two days a week, and she attends physical therapy three times a week. She takes Vitamin D at 4000 units daily. Review of Systems She denies breast pain or a palpable breast mass, a cough, shortness of breath, chest pain, nausea,vomiting, constipation, double vision, skin rashes, pain, redness, or swelling in her lower extremities, or any other sites of joint or skeletal pain. The remainder of her review of systems is negative. Objective: Physical Exam Vitals reviewed. Constitutional: Appearance: She is well-developed. Comments: Her weight is up 3.8 kg over the past year, and her BP is 139/92 with an oxygen saturation of 95%. HENT: Mouth/Throat: Mouth: Mucous membranes are moist. Pharynx: Oropharynx is clear. No oropharyngeal exudate. Neck: Comments: She has no cervical or supraclavicular adenopathy. Cardiovascular: Rate and Rhythm: Normal rate and regular rhythm. Heart sounds: Normal heart sounds. No murmur heard. No gallop. Pulmonary: Breath sounds: Normal breath sounds. No wheezing or rales. Comments: She has bilateral mastopexy scars. She has no masses within either the left or the right breast, and she has no axillary adenopathy palpable on either side. Abdominal: General: There is no distension. Palpations: Abdomen is soft. There is no mass. Tenderness: There is no abdominal tenderness. There is no guarding. Comments: She has no right upper quadrant pain or hepatomegaly. Musculoskeletal: Cervical back: Neck supple. Comments: She has no pain on percussion over the spine, sternum, ribs, or hips. There is no edema, erythema, or warmth within her lower extremities. Skin: General: Skin is warm and dry. Findings: No erythema. Today's 3-D mammograms show no suspicious microcalcifications, masses, or architectural distortion,with stable post-reduction changes bilaterally. The breasts are of scattered density. The most recent Dexa scan from December 26, 2021 showed T scores of -1.1 in the lumbar spine (up from -1.9 in November 2019), and -2.7 in the left forearm (down from -2.3 in November 2019). The most recent CBC from November 30, 2022 showed a WBC count of 7.11, Hgb 14.7,Hct 44.9, platelets 258. Recent Results (from the past 24 hour(s)) Comprehensive metabolic panel (non-fasting) Result Value Ref Range Glucose Lvl 100 65 - 199 mg/dL BUN 17 8 - 18 mg/dL Creatinine 0.78 0.70 - 1.20 mg/dL Sodium 145 135 - 145 mmol/L Potassium 4.3 3.5 - 5.0 mmol/L Chloride 109 (H) 98 - 107 mmol/L CO2 26 22 - 31 mmol/L Anion Gap 10 5 - 15 mmol/L Calcium 9.9 8.5 - 10.5 mg/dL Total Protein 6.9 6.1 - 8.0 g/dL Albumin 4.7 3.2 - 5.2 g/dL AST 12 0 - 30 unit/L ALT 17 0 - 30 unit/L Alk Phos 90 35 - 105 unit/L Total Bilirubin 0.2 0.2 - 1.3 mg/dL Estimated GFR 79 >=60 mL/min/1.73 m?? Vitamin D, 25-Hydroxy Result Value Ref Range 25-OH Vit D Total 42 21 - 100 ng/mL 25-OH Vit D Interp Sufficient Assessment and Plan: Ms. Gaming has no evidence of breast cancer recurrence. She completed five years of adjuvant anastrozole more than seven years ago. 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 She will probably not tolerate an oral agent because of her hiatal hernia. I will be retiring at the end of the year and I will now sign off. Ms. Deutsch will continue to see her yearly and she will be ordering her breast imaging. I will ask Dr. Watts for followup on her bone density. Abrahan Merlos MD planting machine crewman in Hematology-Oncology documented in this encounter Plan of Treatment Upcoming Encounters Date Type Department Care Team (Late st Contact Info) Description 11/16/2024 1:00 PM EST Office Visit General Surgery at [place] [phone] Paula Harris PA [facility] [place] [address] 01/26/2025 9:50 AM EDT Appointment Mammography/DXA at [place] [phone] Joan Deutsch APRN [facility] [place] [address] 01/26/2025 10:50 AM EDT Office Visit [place] [phone] Joan Deutsch APRN [facility] [place] [address] documented as of this encounter Visit Diagnoses Diagnosis Malignant neoplasm of right breast, stage 2 documented in this encounter Care Teams Dock Superintendent Relationship Specialty Start Date End Date Mariluz Watts MD [address] [place] [address] PCP - General 08/22/10 documented as of this encounter
--- OUTSIDE RECORDS SUMMARY | 2024-05-18 19:55 | XMS_ITS | Encounter Summary ---
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 Outside Name Role Phone Mariluz Watts MD Primary Care Provider [phone] Reason for Visit * Reason Comments Establish Care * Consultation (Routine) - Closed Specialty Diagnoses / Procedures Referred By John lyons Referred To Contact General Surgery Diagnoses HPV (human papilloma virus) anogenital infection Mayur Banuelos MD [facility] [place] [address] [facility] Surgery [address] [place] [address] Referral ID Status Reason Start Date Expiration Date V isits Requested Visits Authorized [id number] Closed Consult, Test & Treat 09/07/2022 09/07/2023 1 1 Encounter Details Date Type Department Care Team (Latest Contact Info) Description 12/12/2022 8:00 AM EDT Office [place] [address] Aria Higuera MD [facility] [place] [address] HPV (human papilloma virus) anogenital infection; Internal hemorrhoid; OAB (overactive bladder); Pelvic floor dysfunction; Postoperative anemia due to acute blood loss; Bleeding disorder; Benign hypermobility syndrome Social History Tobacco Use Types Packs/Day Years [...] Sign Reading Time Taken Comments Blood Pressure 132/90 12/12/2022 7:55 AM EDT Pulse 88 12/12/2022 7:55 AM EDT Temperature 35.9 ??C (96.6 ??F) 12/12/2022 7:55 AM ED T Respiratory Rate 16 12/12/2022 7:55 AM EDT Oxygen Saturation 96% 12/12/2022 7:55 AM EDT Inhaled Oxygen Concentration - - Weight 93.9 kg (207 lb 1.6 oz) 12/12/2022 7:55 A M EDT Height 165.1 cm (5' 5) 12/12/2022 7:55 AM EDT Body Mass Index 34.46 12/12/2022 7:55 AM EDT documented in this encounter Patient Instructions * Patient Instructions* Paula Harris PA - 12/12/2022 8:00 AM EDT Prieto Gaming, it was nice to see you today. Here are the goals going forward as discussed during today's visit: We did see the lesions that Dr. Banuelos saw during colonoscopy. We recommend removal of this lesion. Condyloma does have the potential to develop dysplasia and canbe a precursor for anal cancer, we do recommend removal, although we need clarification and clearance from cardiology and about your bleeding disorder. This was attached to a hemorrhoid column, so wewill perform hemorrhoidectomy to remove this in full. This procedure can be uncomfortable during recovery, recommend laying lay/resting 5-7 after the procedure. We will have you send us your previous records from your visits with hematology regarding your bleeding disorder/hypermobility syndrome. After you see cardiology in January, we can have a follow up appt, can be telehealth to discuss timing for surgery. WHAT ARE ANAL WARTS? Anal warts, also known as condyloma acuminata, are small growths that affect the area around and inside the anus. They may also develop on the skin of the genital area, including the vulva, vagina, and penis. They first appear as tiny spots or growths, perhaps as small as the head of a pin, and may grow quite large and cover the entire anal area. They usually appear as skin-colored, pink, or brown in color Usually, they do not cause pain or discomfort and patients may be unaware that the warts are present. Some patients will experience symptoms such as itching, bleeding, mucus discharge and/or a feeling of a lump or mass in the anal area. WHAT CAUSES ANAL WARTS? Warts are caused by a virus called human papilloma virus or HPV, which is transmitted from personto person by direct contact. HPV is considered to be the most common sexually transmitted disease. You may be upset when you aregiven this diagnosis and it is important to note that anal intercourse is not necessary to develop anal condyloma. Any contact exposure to the anal area (hand contact, secretions from a sexual partner) can result in HPV infection. Exposure to the virus could have occurred many years ago or from prio r sexual partners, but you may have just recently developed the actual warts. HPV often remains in the body without any signs or symptoms. The type of HPV that causes most forms of genital warts is not usually dangerous. It is important to know that other types of HPV can lead to cancer of the cervix, penis or anus, so it is extremely important to get screened by a provider. WHAT ARE THE SYMPTOMS OF ANAL WARTS? Warts are usually painless, so you may not even realize you have them. You may feel a soft, moist bump near or in the anus. Some people may experience other symptoms including: Itching This can be multifactorial, but often caused by difficulty cleaning the anal area Bleeding Local irritation caused by cleaning the perineum may cause bright red blood Mucus discharge, especially if the warts are inside the anus Feeling a lump or swelling in the anal area. HOW ARE ANAL WARTS DIAGNOSED? Although potentially sensitive and difficult to talk about, your doctor may ask about the presence or absence of risk factors, including a history of anal intercourse, a positive HIV test or a chronically weakened immune system (medications for organ transplant patients, inflammatory bowel disease, rheumatoid arthritis, etc). Physical examination should focus primarily on the anorectal examination and evaluation of the perineum which includes examining the penile or vaginal area to look for warts. Digital rectal examination should be performed to rule out any mass. Your provider may want to take small samples of tissue,known as a biopsy, if it is not clear what you have. This is usually unnecessary. Anoscopy is typically performed to look within the anal canal for additional warts. This involves inserting a small instrument about the size of a finger into your anus to help visualize the area. Speculum examinationmay also be performed to aid in vaginal examination in women. CAN I PREVENT MYSELF FROM GETTING WARTS? The safest way to protect yourself from getting exposed to HPV or any other sexually transmitted disease, is to use practice safe sex. Abstain from sexual contact with individuals who have anal or genital warts. Since many individuals may be unaware that they suffer from this condition, sexual abstinence, condom protection or limiting sexual contact to a single partner will reduce spreading this contagious virus. It is important to understand that using condoms with any kind of intercourse may reduce, but not completely eliminate, the risk of HPV infection, as HPV is spread by [id number] contact and can live in areas not covered by a condom. The U.S. Food and Drug Administration has approved the vaccine Gardasil, which is a vaccine for theprevention of cervical, vulvar, vaginal, anal, oropharyngeal and other head and neck cancers causedby certain HPV types and precancerous or dysplastic lesions. It is now approved to be given to patients, both male and female, ages 9-46 prior to HPV exposure. Gardasil will not provide protection against diseases caused by HPV types in which a person has already been previously exposed through direct contact. It is also very important to understand that Gardasil does not eliminate the need for screening forcervical, vulvar, anal, oropharyngeal, and other head and neck cancers. DO THESE WARTS ALWAYS NEED TO BE REMOVED? Yes. If they are not removed, the warts usually grow larger and multiply. Left untreated, warts maylead to an increased risk of anal cancer in the affected area. Fortunately, the risk of anal canceris still very rare. WHAT TREATMENTS ARE AVAILABLE FOR ANAL WARTS? Topical therapy and surgery are the best treatment options for treating anal warts. Your provider can provide insight of what the best treatment is for you. Topical medical therapy does not have any downtime after application, and you may continue working. Topical medication options include: Podofilox is a gel or solution that is applied to anal wart twice a day for 3 days, then hold treatment for 4 days. This treatment cycle can be repeated up to 4 times. Larger areas should not be treated with this medication because there is significant pain associated. This topical therapy cannot be used in . Your provider will recommend washing area 1-4 hours after application of medicine, otherwise you can have skin irritation. Podophyllin is a solution that is applied directly to the wart. The anal area should air-dry beforegetting dressed. Like with podofilox, this also should not be applied to larger areas due to pain and cannot be used in . Your provider will recommend washing area 1-4 hours after application of medicine, otherwise you can have skin irritation. Trichloroacetic acid and bichloracetic acid destroy the wart tissue. These must be applied by a healthcare provider. When this medication is applied, the wart will turn white as the solution dries - THIS IS COMPLETELY NORMAL. You should not sit, stand, or dress until the area that is being treated has dried. This medication may be used in . Imiquimod is a immune therapy that can be administered at home. This cream is applied directly to the wart at bedtime and washed off 6-10 hours later. Sexual contact should be avoided while this cream is on the skin because it can weaken condoms. This medication should not be used in . Cryotherapy is a method that will actually freeze the wart. Liquid nitrogen is often used. The treatment is applied for 30-60 seconds until an ice ball forms around the lesion. This treatment usuallyrequires repeated weekly applications. Side effects include skin irritation, blistering, and ulceration. SURGICAL OPTIONS FOR TREATING WARTS: Surgery is indicated when the warts are either too large for topical therapy or if the warts are internal. Surgery will provide immediate results, but must be performed using either a local anesthetic - such as Novocaine - or a general/spinal anesthetic, depending on the number and exact location of warts being treated. Fulguration (burning), surgical excision (removal), or a combination of both,are used to treat larger external and internal anal warts. MUST I BE HOSPITALIZED FOR SURGICAL TREATMENT? Surgical treatment of anal warts is usually performed as outpatient surgery. HOW MUCH TIME WILL I LOSE FROM WORK AFTER SURGICAL TREATMENT? Most people are moderately uncomfortable for a few days after treatment, and pain medication may beprescribed. Depending on the extent of the disease, some people return to work the next day, while others may remain out of work for several days to weeks. Pain, discomfort and slight bleeding are expected in the recovery period and may last at some level for several weeks. Excessive bleeding is abnormal and your provider should be informed immediately if you experience large amounts of bleeding.Clear, yellowish or blood tinged drainage or moisture will be expected for days to weeks after the procedure. Placement of a pad and frequent dressing changes will help lessen the moisture and itching associated with the drainage. WILL A SINGLE TREATMENT CURE THE PROBLEM? When warts are extensive, your surgeon may wish to perform the surgery in stages. Additionally, recurrent warts are common in over 50% of patients. The virus that causes the warts can live concealed in the skin that appears normal for several months before another wart develops. As new warts develop, they usually can be treated in the physician's office. Sometimes new warts develop so rapidly that office treatment may not be possible or could be quite uncomfortable. In these situations, a second, and occasionally, third outpatient surgical visit may be recommended. HOW LONG IS TREATMENT USUALLY CONTINUED? Follow-up visits are necessary at frequent intervals for several months after the last wart is observed to be certain that no new warts occur. It is important to see your provider on a routine basis as recommended by her/him or if you notice any new lesions or new symptoms (pain, rectal bleeding). WHAT CAN BE DONE TO AVOID GETTING THESE WARTS AGAIN? In some cases, warts may recur repeatedly after successful removal, since the virus that causes thewarts often persists in a dormant state in the skin. Discuss with your provider how often you should be examined for recurrent warts. To prevent further spread of HPV, safe sex practices are recommended and include sexual abstinence,condom protection or limiting sexual contact to single partner. As a precaution, sexual partners ought to be checked for warts and other sexual transmitted diseases, even if they have no symptoms. Your provider may also recommend that you be tested for other sexually transmitted diseases. From [employer] and [employer] documented in this encounter Progress Notes * Aria Higuera MD - 12/12/2022 8:00 AM EDT Colorectal Surgery Outpatient Consultation ~ Division of Colon and Rectal Surgery ~ [facility] Care Team: PCP is Mariluz Watts MD. HPI: Diamond Gaming is a pleasant 76 y.o. female who is referred for consultation by Dr. Banuelos regarding anal lesions seen on colonoscopy. Diamond had a screening colonoscopy on 09/07/[address] Banuelos. Colonoscopy findings include scattered diverticula, several polyps in the ascending colon and transverse colon consistent with tubularadenomas and 2 squamous villiform appearing polypoid lesions at the dentate line. 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 Patient was referred to our service for evaluation and to discuss intervention. Patient does have personal history of polyps and this was regular screening colonoscopy, did not have any symptoms leading up to her scope. She denies bleeding, perianal itching/irritation, difficulthygiene. She does have disordered bowel function, constipation alternating with diarrhea. She notesthat with her loose stools, she can have urgency and some incontinence. She is using a fiber supplement, Benefiber. Patient has complex past medical history. She reports that she was diagnosed with a variant of Marfan syndrome, hypermobility syndrome. 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 She was reportedly seeing hematology here at [facility] in 2009 who diagnosed her with this. [...] urology here at as well as in [place]. She has seen a pelvic floor physical therapist. She has been on several medications, including tolterodine. She reports that she goes through 2- 8 pads a day, will still gush urine associated with bladder spasms. She has seen Dr. Keenan in 2020, at which time Dr. Keenan notes: She has been on vesicare since Sep. She feels that it works very well. She thought that the Pt also was very helpful. She does her exercises 3 times per day. She is able to do urge suppression techniques. ?? Decision Making/Plan: Pt with urge incontinence - she is 85-90% better. I discussed with her that there are alternatives to anticholinergics if she starts to notice that she becomes worse. These would be third line therapy such as Botox, PTNS or sacral nerve stimulation.As long as she is doing well on Vesicare and behavioral therapy she does not need to do anything else. I discussed with her briefly the potential side effect of anticholinergics long- term with cognitive issues. I discussed that this is still considered to be an association and not an actual cause. I did however suggest that she try to avoid other drugs that may predispose to cognitive changes as there may be greater risk with cumulative exposure. She has had palpitations/irregular pulse for several years, had an EKG and echocardiogram per her PCP, who diagnosed her with atrial fibrillation. She has not seen a gynaecological oncologist yet, but is scheduled to see cardiology at [facility] in January. She is not on any anticoagulation at this time. Obstetric history significant for 1 child, born vaginally. She reports that her delivery did have afirst-degree perineal tear. She did not have any difficulty with urinary or bowel control followingher childbirth. She denies history of abnormal Pap smear, has not had previous colposcopy or LEEP. She reports that there may have been HPV exposure with her ex-. Family history significant for colon cancer in a great grandfather. No other family members with colon cancer or rectal cancer. No family history of ulcerative colitis or Crohn's disease. Review of Systems Constitutional: Negative for anorexia, fever, weight loss, malaise/fatigue and chills. Respiratory: Positive for shortness of breath. Negative for cough and chest discomfort. Genitourinary: Positive for stress incontinence and urge incontinence. Gastrointestinal: Positive for constipation and diarrhea. Negative for abdominal discomfort, vomiting and nausea. HENT: Positive for sinus pressure. Psychiatric/Behavioral: Positive for depression and physiological symptoms of anxiety. Hematologic/Lymphatic: Negative. Musculoskeletal: Positive for joint pain and stiffness. Endocrine: Negative. Cardiovascular: Positive for palpitations. Negative for syncope and leg edema. Neurological: Positive for headaches and vertigo. Skin: Negative. 12/12/2022 COREFO Responses Incontinence Scale 36.11 Social Impact Scale 27.78 Frequency Scale 12.5 Stool Related Aspects 0 Medication Scale 33.33 Total COREFO Score 26.92 Multiple values from one day are sorted in reverse-chronological order The COREFO questionnaire is a validated questionnaire with 27 questions to assess colorectal functional outcome. Patients are asked to consider the two week period prior before filling out the questionnaire. Category scores range from zero to 100. A total score is calculated from the categories above, also ranging from zero to 100. A higher score represents an increased level of functional disturbance. Problem List: Patient Active Problem List Diagnosis Code ??? 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 Diverticulosis K57.90 ??? Degenerative joint disease M19.90 ??? Rosacea L71.9 ??? GI bleeding K92.2 ??? Hip pain M25.559 ??? S/P Right ARSLAN 03/06/2005 ([facility]) Z96.649 ??? S/P Left Anterior ARSLAN- 07/22/12 (Dr. Ervin) Z96.649 ??? S/P tubal ligation Z98.51 ??? Osteoarthritis of left knee M17.12 ??? Bleeding disorder D69.9 ??? Aortic valve sclerosis I35.8 ??? Postoperative anemia due to acute blood loss D62 ??? Dupuytren's contracture M72.0 ??? Status post hip replacement Z96.649 ??? Arthritis of midfoot M19.079 ??? 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 Hallux valgus of right foot M20.11 ??? Dermatochalasis of both upper eyelids H02.831, H02.834 ??? OAB (overactive bladder) N32.81 ??? Pelvic floor dysfunction M62.89 ??? HPV (human papilloma virus) anogenital infection A63.0 ??? Atrial fibrillation I48.91 ??? Internal hemorrhoid K64.8 Past medical history: Past Medical History: Diagnosis Date ??? Anxiety associated with depression ??? Aortic valve sclerosis 07/25/2012 ??? Atrial fibrillation ??? Benign hypermobility syndrome ??? 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 Bleeding disorder diag in 2009 ??? Breast cancer, stage 2 01/25/2010 ??? Cancer breast ??? Chronic pain ibuprofen 600 mg 4x a day ??? Degenerative joint disease ??? Dermatochalasis of both upper eyelids 02/11/2019 ??? Diverticulosis ??? Genetic syndrome hypermobility syndrome ??? GI bleeding 03/25/2011 ??? Hypermobility syndrome ??? Kidney disease ??? 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 Motion sickness severe ??? Osteoarthritis of left knee 07/25/2012 ??? Other complications of anesthesia, sequela constant ringing in ears. increased dizziness ??? Pelvic floor dysfunction 11/23/2020 ??? Post-operative nausea and vomiting I have severe motion sickness and need a scopolamine patch. ??? Postoperative anemia due to acute blood loss ??? Rosacea 03/25/2011 ??? Status post radiation therapy ??? Syncope distant past ??? Transfusion history 5 units after a lower gi bleed 2007 Past surgical history: Past Surgical History: Procedure Laterality Date ??? BREAST BIOPSY Bilateral 2009 ??? BREAST LUMPECTOMY Right 03/09 for ca age 64 w/ rad 2009 ??? BREAST REDUCTION SURGERY Bilateral 2009 ??? CREATED BY INTERFACE ARTHROSCOPY KNEE,MENISCECTOMY SINGLE WITH SHAVING / LEFT Procedure Date: 06/04/2006 ??? CREATED BY INTERFACE COLONOSCOPY (ENDO) Procedure Date: 08/18/2006 ??? CREATED BY INTERFACE [id number] Procedure Date: 01/27/2007 ??? CREATED BY INTERFACE Entered not Verified Procedure Date: 07/28/2010 ??? CREATED BY INTERFACE EXCISION LESION,BREAST W PREOP.MARKER(NEEDLE LOC.) / LEFT Procedure Date: 03/24/2010 ??? CREATED BY INTERFACE LYMPH NODE BIOPSY,DEEP AXILLARY / RIGHT/SENTINEL NODE EXCISION Procedure Date: 03/24/2010 ??? CREATED BY INTERFACE MASTECTOMY,PARTIAL. / RIGHT Procedure Date: 04/04/2010 ??? CREATED BY INTERFACE MASTECTOMY,PARTIAL. / RIGHT/WITH NEEDLE LOC. Procedure Date: 03/24/2010 ??? CREATED BY INTERFACE REDUCTION MAMMOPLASTY, BILATERAL / BILATERAL Procedure Date: 03/24/2010 ??? CREATED BY INTERFACE SENTINEL NODE INJECTION / RIGHT/BREAST Procedure Date: 03/24/2010 ??? CREATED BY INTERFACE TOTAL HIP ARTHROPLASTY / RIGHT/ACCOLADE FEM.STEM/TRIDENT KONSTANTIN. Procedure Date: 03/06/2005 ??? JOINT REPLACEMENT bilateral hips ??? LID SURGERY Bilateral 03/23/2019 BLEPHAROPLASTY,UPPER EYELID, WITH EXCESSIVE SKIN, ANDRES ??? PRO ARTHROPLASTY ACETABULAR/PROX FEM PROSTC AGRFT/ALGRFT 07/22/2012 @TOTAL HIP ARTHROPLASTY, ANTERIOR APPROACH performed by NICK ERVIN at [facility] MAIN OR ??? PRO BLEPHAROPLASTY UPPER EYELID W EXCESSIVE SKIN Bilateral 03/27/2019 BLEPHAROPLASTY,UPPER EYELID, WITH EXCESSIVE SKIN, ANDRES (WRVU 6.81) performed by Debbi Green MD at [facility] OSC ??? PRO COLONOSCOPY, DIAGNOSTIC 02/29/2012 COLONOSCOPY, DIAGNOSTIC performed by GALLITO KUO at [facility] ENDOSCOPY ??? PRO COLONOSCOPY, REMV LESN, SNARE N/A 03/26/2017 COLONOSCOPY, POLYPECTOMY, REMOVAL LESION BY SNARE (WRVU 4.67) performed by Gallito Kuo MD at [facility] ENDOSCOPY ??? PRO COLONOSCOPY, REMV LESN, SNARE N/A 09/07/2022 COLONOSCOPY, POLYPECTOMY, REMOVAL LESION BY SNARE (WRVU 4.67) performed by Mayur Banuelos MDat [facility] ENDOSCOPY ??? PRO CYSTO/URETERO/PYELOSCOPY W/LITHOTRIPSY Left 07/27/2015 CYSTOURETEROSCOPY, LITHOTRIPSY performed by Rosales Bowman MD at [facility] MAIN OR ??? PRO CYSTOSCOPY, INSERT URETERAL STENT Left 07/11/2015 CYSTO, STENT PLACEMENT performed by Jose D Chauhan III, MD at [facility] MAIN OR ??? PRO CYSTOSCOPY, INSERT URETERAL STENT Left 07/27/2015 CYSTO, STENT PLACEMENT performed by Rosales Bowman MD at [facility] MAIN OR ??? PRO CYSTOSCOPY, REMV CALCULUS, SIMPLE Left 07/27/2015 CYSTO, REMOVAL OF STENT, FOREIGN BODY OR CALCULUS, SIMPLE performed by Rosales Bowman MD at [facility] MAIN OR ??? PRO CYSTOURETHROSCOPY, URETER CATHETER N/A 07/11/2015 CYSTO, RETROGRADE, URETEROPYELOGRAPHY performed by Jose D Chauhan III, MD at [facility] MAIN OR ? ? PRO EXC SKIN BENIG >4CM TRUNK, ARM, LEG 03/27/2011 EXC BENIGN LESION; INDRA >4.0CM, TRUNK performed by TIRSO CHAUDHARI at [facility] MAIN OR ??? PRO UPPER GI ENDOSCOPY, DIAGNOSTIC N/A 11/06/2018 EGD, UPPER GI ENDOSCOPY performed by Charisma Aguayo MD at [facility] ENDOSCOPY Allergies: Hymenoptera allergenic extract, Tetracycline, Tetracyclines, Plaquenil [hydroxychloroquine], Gabapentin, and Trazodone Medications: reviewed in the electronic medical record. Current Outpatient Medications on File Prior to Visit Medication Sig Dispense Refill ??? escitalopram (Lexapro) 20 mg tablet Take 20 mg by mouth daily. ??? cholecalciferol, Vitamin D3, 25 mcg (1,000 unit) Capsule Take 1,000 Units by mouth daily. ??? multivitamin Capsule Take 1 capsule by mouth daily. ??? acetaminophen (Tylenol) 500 mg tablet Take 500 mg by mouth daily. ??? ferrous sulfate (FeroSul) 325 mg (65 mg iron) tablet Take 100 mg by mouth daily (with breakfast). ??? tolterodine LA (Detrol LA) 4 mg ER 24 hr capsule Take 4 mg by mouth daily. ??? omeprazole (PriLOSEC) 20 mg Capsule, Delayed Release(E.C.) Take 20 mg by mouth daily. ??? solifenacin (VESICARE) 10 mg Tablet TAKE 1 TABLET DAILY (Patient not taking: Reported on 12/26/2021) 90 tablet 3 No current facility-administered medications on file prior to visit. Social history: reports that she quit smoking about 54 years ago. Her smoking use included cigarettes. She has a 3.00 pack-year smoking history. She has never used smokeless tobacco. She reports thatshe does not drink alcohol and does not use drugs. Family medical history: Family History Problem Relation Age of Onset ??? Prostate Cancer Paternal Grandfather ??? Breast Cancer Other 80's ??? Breast Cancer Other ??? Strabismus Father ??? Amblyopia Neg Hx ??? Glaucoma Neg Hx ??? Macular Degeneration Neg Hx Vital Signs Last value Range last 24hrs Temperature Temp: 35.9 ??C (96.6 ??F) Temp: [35.9 ??C (96.6 ??F)] Heart Rate Heart Rate: 88 Heart Rate: [88] Blood Pressure BP: 132/90 BP: (132)/(90) Respiratory Rate Resp: 16 Resp: [16] SpO2 SpO2: 96 % SpO2: [96 %] Physical Exam: Body mass index is 34.46 kg/m??. General Appearance: well developed and well nourished Neuro: awake, alert and oriented to person, place and time no acute distress Psych: appropriate mood and affect Eyes: extra ocular muscles intact, pupils equally reactive to light and accomodation ENT: neck supple, no lymphadenopathy noted CV: regular rate and rhythm Resp: non-labored without adventitious sounds on auscultation Lymph: no edema noted Abdomen: soft, non-tender, and not distended, no masses or organomegaly Ext: no cyanosis Anorectal exam: The patient was examined in the left lateral decubitus position with Sandy assisting. The perianal skin is normal. There are no enlarged external hemorrhoidal skin tags. There is no protrusion of internal mucosa with valsalva. The anus is closed. On digital rectal exam resting tone is slightly decreased and squeeze tone is slightly decreased. There is normal relaxation with valsalva. There are no masses. There is no gross blood. There is no tenderness to palpation. Slightly granular mucosa right lateral. Anoscopy: The well lubricated anoscope was inserted into the anal canal and the entire anal canal and distal rectum were inspected. Anoscopic Findings include: Right lateral anal condyloma, corresponds with colonoscopy findings. Condylomatous lesion on the apex of right anterior hemorrhoidal column. No other lesions visualized. Endoscopy: Colonoscopy 09/07/2022 Findings: ?The perianal and digital rectal examinations were ?normal. ?Many small and large-mouthed diverticula were found ?in the sigmoid colon and descending colon. ?The terminal ileum appeared normal. ?Three sessile polyps were found in the ascending ?colon and cecum. The polyps were 4 to 9 mm in size. ?These polyps were removed with a cold snare. ?Resection and retrieval were complete. ?An 18 mm polyp was found in the ascending colon. The ?polyp was sessile. The polyp was removed with a lift ?and cut technique using a cold snare. The polyp was ?removed with a piecemeal technique using a cold ?snare. Resection and retrieval were complete. To ?prevent bleeding after the polypectomy, two ?hemostatic clips were successfully placed (MR ?conditional). Clip electro plater: Steris 11 and 16mm. ?There was no bleeding during, or at the end, of the ?procedure. ?Two semi-sessile polyps were found in the transverse ?colon. The polyps were 5 mm in size. These polyps ?were removed with a cold snare. Resection and ?retrieval were complete. ?Two squamous appearing villiform polypoid lesions ?were found on the anal side of the dentate line. The ?are flat and villiform extending into the anal canal. ?No bleeding was present. Biopsies were taken with a ?cold forceps for histology. Impression: ?- Diverticulosis in the sigmoid ?colon and in the descending colon. ?- The examined portion of the ileum ?was normal. ?- Three 4 to 9 mm polyps in the ?ascending colon and in the cecum, ?removed with a cold snare. Resected ?and retrieved. ?- One 18 mm polyp in the ascending ?colon, removed using lift and cut ?and a cold snare and removed ?piecemeal using a cold snare. ?Resected and retrieved. Clips (MR ?conditional) were placed. ?- Two 5 mm polyps in the transverse ?colon, removed with a cold snare. ?Resected and retrieved. ?- Polypoid lesion at the anus. ?Biopsied. Path: Surgical pathology 09/07/2022 DIAGNOSIS A - Anal canal/dentate line, biopsy: [...] TC x 2, excision: - ??Tubular adenoma. Impression: Diamond Gaming is a pleasant 76 y.o. [...] progression to dysplasia and/or squamous cell carcinoma. Patient does have complex past medical history, including diagnosis of a variant of Marfan syndrome, hypermobility syndrome. Patient was reportedly diagnosed with this by our hematology team in 2009.She reportedly has bleeding disorder associated with this diagnosis and has required blood transfusions in the past for a GI bleed. Patient also has newer onset atrial fibrillation, she has not seen cardiology. She is scheduled to see a women's gynaecological oncologist at [facility] in January. She is not on any anticoagulation at this time. Previous history of urosepsis in the setting of nephrolithiasis. She underwent ureteral stent placement and subsequent removal several weeks later. Patient has had difficulty with gushes of urine with ongoing loss of balance and ringing in her ears, she associates this with her previous urologic surgery/anesthesia. 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 She has seen Dr. Keenan, however, is more recently been following with a urologist in [place]. She has not been evaluated by urogynecology. We discussed that prior to excising condyloma, we need more clarification and clearance from her gynaecological oncologist, who she is going to see in January as well as reviewed the documentation from hematology in regards to her reported bleeding disorder. After these documents are reviewed, we can move forward with exam under anesthesia with excision of anal condyloma/hemorrhoidectomy. Condylomatous lesion does appear to be on the apex of the right anterior internal hemorrhoid column and we would plan to excise this hemorrhoid to remove the condylomatous lesion completely. We reviewed the consent for exam under anesthesia with excision of anal lesion/hemorrhoidectomy in the length, specifically including pain, bleeding, infection. We also discussed expectations postoperatively in addition to recovery after exam under anesthesia. Patient should lay low/have decreased activity for 5 to 7 days followingher procedure to assist in overall discomfort during recovery. Informed consent was signed, and patient was able to speak with her OR care team coordinator scheduler for a mutually agreeable date. We will coordinate a telehealth visit in February to answer any additional questions and to review examfindings and procedural planning again in depth. Plan: -Anal condyloma right lateral anal canal, at the apex of right sided internal hemorrhoid, likely right anterior -Previous diagnosis hypermobility syndrome, diagnosed 2009 by hematology, need records to review -Newer onset atrial fibrillation, cardiology appointment January, cardiac clearance prior to exam underanesthesia -Reviewed EUA with excision of anal condyloma/hemorrhoidectomy in length, informed consent signed -Telehealth February to go over questions and discuss procedure again in length Operative checklist: Surgeon: Kalen Procedure: EUA with biopsy/excision anal lesion; hemorrhoidectomy CPT: 83416; 67407; 80204 OR date: March 2023 Estimated LOS: SDS Operative time: 1 hr Position: Lithotomy Location: Main OR Urologic stents: None Bowel Prep: 1 Enema Consent: signed Paula Harris PA-C Division of Colon and Rectal Surgery I have seen the patient in person and reviewed the above history and I agree with the details as written by Paula Harris PA-C. The assessment and plan were formulated in discussion with me and Manuela with them as documented. Pertinent Exam: I was present for the examination and agree with the note from Paula Harris PA-C. Plan: Agree with plans as documented Need to resolve bleeding disorder question Need to follow up on Cardiology/ [place] [facility] Both of these prior to surgery Aria Higuera MD, MS, FACS, FASCRS Chief, Division of Colon and Rectal Surgery [facility] Pager [phone] documented in this encounter Plan of Treatment Upcoming Encounters Date Type Department Care Team (Late st Contact Info) Description 11/16/2024 1:00 PM EST Office [place] [phone] Paula Harris PA [facility] [place] [address] 01/26/2025 9:50 AM EDT Appointment Mammography/[place] [phone] Joan Deutsch, [facility] [place] [address] 01/26/2025 10:50 AM EDT Office [place] [phone] Joan Deutsch, [facility] [place] [address] documented as of this encounter Visit Diagnoses Diagnosis HPV (human papilloma virus) anogenital infection Human papillomavirus in conditions classified elsewhere and of unspecified site Internal hemorrhoid Internal hemorrhoids without mention of complication OAB (overactive bladder) Hypertonicity of bladder Pelvic floor dysfunction Pelvic muscle wasting Postoperative anemia due to acute blood loss Acute posthemorrhagic anemia Bleeding disorder Unspecified hemorrhagic conditions 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
--- OUTSIDE RECORDS SUMMARY | 2024-05-18 19:55 | XMS_ITS | Encounter Summary ---
Author Organization [facility] [place] [address] Care Team Providers Care Gas Cutting Machine Operator Name Role Phone Mariluz Watts MD Primary Care Provider [phone] Reason for Visit * Reason Comments Rosacea Encounter Details Date Type Department Care Team (Late st Contact Info) Description 07/08/2023 10:20 AM EDT Office Visit Dermatology at [facility] [address] [place] [address] Cornell Hernández MD [facility] [place] [address] Michaelia; Rosacea Social History Tobacco Use Types Packs/Day Years Used Date Smoking Tobacco: Former Cigarettes 1 3 0 09/30/1965 - 09/30/1968 Smokeless Tobacco: Never Alcohol Use Standard Drinks/Week Comments No 0 (1 standard drink = 0.6 oz pur e alcohol) [facility] Inpatient Questions Answer Date Recorded [...] Progress Notes * Cornell Hernández MD - 07/08/2023 10:20 AM EDT Images from the original note [...] y.o. Patient returns to clinic today for 3 monthrosacea follow up. -she states she was placed on Keflex one tablet daily for urine incontinence but does not believe this has benefited her rosacea -she also states the oral metronidazole BID x 2 weeks did not do anything and doesn't believe the current metro gel has helped -she states she is 5/10 satisfied -she reports white bumps popping up on face and behind ears -she only states her itching has resolved -she states she always has GI issues when asked if she has any stomach symptoms Last visit at Dermatology: 04/05/2023 Last visit with this provider: 04/05/2023 Medications: Reviewed in eD-H Allergies: Reviewed in eD-H Skin Examination: Focused skin examination of the face was normal with the exception of the findings below. Assessment/Plan #. Papulopustular Rosacea - Scattered inflammatory papule and pustules most prominent on the bilateral right cheek and chin. (Figure 1) - First evaluated here in 01/2023 - Current treatment: topical metronidazole qd and azelaic acid qd, s/p metronidazole 250 mg PO x 2w(in 03/2023) - Scraping of pustule negative for Demedex on 04/05/23 - Discussed common triggers, including alcohol, exercise, caffeine, spicy foods, sun exposure, and extreme temperatures. - Discussed treatment options, including doxycycline, tretinoin, azealic acid, and amlactin rapid relief lotion. - Continue AmLactin Rapid Relief lotion application the face daily. - Start Rx: ivermectin 1% cream: Apply topically BID to the affected areas of the face - Continue Rx metronidazole (MetroGel) 0.75% gel: Apply topically to affected areas on face daily (either AM or PM); previously prescribed - Continue Rx azelaic acid 15% gel: Apply topically to affected areas on face daily (either AM or PM) - Due to allergy of tetracyclines (anaphylaxis), avoiding doxycycline for systemic treatment. - Unable to start azithromycin given patient is on escitalopram which is a QT prolonging agent. - Briefly discussed the option of treating cosmetically with V-Beam. Patient is not interested at this time - Recommend patient tweaking her diet and lifestyle habits one by one to see if her flaring improves; will defer to patient on what to tweak #. Irritated Milium - firm, round, white subcutaneous papule on the left ear - Bothersome to patient - Patient reassured of benign nature. - Lesion was lanced with 11 blade and keratinaceous debri extruded confirming diagnosis. Figure 1 Photo(s) taken and charted with patient's verbal consent. Other: Reviewed and/or interpreted test results Sun protection discussed (protective clothing and SPF30+ broad-spectrum sunscreen) OTC skin products discussed RTC: 3 months for Rosacea follow up []Note routed to confidential secretary []Recall placed in scheduling system [x]Appointment scheduled at checkout Scribe attestation: TIMUR Mcgowan has performed the documentation for this encounter inthe presence of and acting as a scribe for Cornell Hernández MD. I performed the above scribed service and agree with the accuracy of the documentation in this encounter. Reviewed and signed by: Cornell Hernández MD Dermatology Replaced By [facility] Patient seen and evaluated with staff wildlife and game protector: Jaquelin Gonsalves MD Dermatology Replaced By [facility] * Stan Gonsalves MD - 07/08/2023 10:20 AM EDT I directly supervised Cornell Hernández MD in the care of this patient. I saw and evaluated this patient with Cornell Hernández MD. Cornell Hernández MD presented the history and physical exam details to me, then we saw the patient together, and I confirmed these findings. I agree with details as written. My physical examination confirms Cornell Hernández MD's findings. The assessment and plan were formulated in discussion with me at the time of visit, and I agree with them as documented. STAN GONSALVES MD Staff Scrap Drop Engineer Department of Dermatology [facility] documented in this encounter Plan of Treatment Upcoming Encounters Date Type Department Care Team (Late st Contact Info) Description 11/16/2024 1:00 PM EST Office [place] [phone] Paula Harris PA [facility] [place] [address] 01/26/2025 9:50 AM EDT Appointment Mammography/[place] [phone] Joan Deutsch APRN [facility] [place] [address] 01/26/2025 10:50 AM EDT Office [place] [phone] Joan Deutsch APRN [facility] [place] [address] documented as of this encounter Visit Diagnoses Diagnosis Milia Sebaceous cyst Rosacea documented in this encounter Care Teams Gas Cutting Machine Operator Relationship Specialty Start Date End Date Mariluz Watts MD [address] [place] [address] PCP - General 08/22/10 documented as of this encounter
--- OUTSIDE RECORDS SUMMARY | 2024-05-18 19:55 | XMS_ITS | Encounter Summary ---
[place] [address] Care Team Providers Care Community Music Therapist Name Role Phone Mariluz Watts MD Primary Care Provider [phone] Encounter Details Date Type Department Care Team (Late st Contact Info) Description 01/01/2023 Telephone [place] [address] Rayne Nicole RN Social History Tobacco Use Types Packs/Day [...] encounter Miscellaneous Notes * Telephone Encounter - Rayne Nicole RN - 01/01/2023 3:16 PM EDT Diamond is scheduled for a hemorrhoidectomy on 04/16/23. She contacted the General Surgery Clinic this morning reporting she would have difficulty administering an enema at home due to her hip replacements. I will notify Dr. Higuera closer to surgery date so a pre op enema can be ordered to be done in pre op. documented in this encounter Plan of Treatment Upcoming Encounters Date Type Department Care Team (Late st Contact Info) Description 11/16/2024 1:00 PM EST Office Visit General Surgery at [place] [phone] Paula Harris PA [facility] [place] [address] 01/26/2025 9:50 AM EDT Appointment Mammography/DXA at [place] [phone] Joan Deutsch, [facility] [place] [address] 01/26/2025 10:50 AM EDT Office Visit General Surgery at [place] [phone] Joan Deutsch, NEWSPAPER PHOTOJOURNALIST [facility] [place] [address] documented as of this encounter Visit Diagnoses Not on filedocumented in this encounter Care Teams Community Music Therapist Relationship Specialty Start Date End Date Mariluz Watts MD [address] [place] [address] [address] [facility] [address] [place] [address] PCP - General 08/22/10 documented as of this encounter
--- OUTSIDE RECORDS SUMMARY | 2024-05-18 19:55 | XMS_ITS | Encounter Summary ---
[place] [address] Care Team Providers Care Flatwork Presser Name Role Phone Mariluz Watts MD Primary Care Provider [phone] Encounter Details Date Type Department Care Team (Late st Contact Info) Description 01/15/2023 1:09 PM EDT - 01/15/2023 1:59 PM EDT Hospital Encounter Mammography/[place] [address] Mariluz Watts MD [address] [place] [address] [address] [place], [place] [address] Visit for screening mammogram Discharge Disposition: Home Social History Tobacco Use [...] PM EST Office Visit [place] [phone] Paula Harris PA [facility] [place] [address] 01/26/2025 9:50 AM EDT Appointment Mammography/[place] [phone] Joan Deutsch APRN [facility] [place] [address] 01/26/2025 10:50 AM EDT Office [place] [phone] Joan Deutsch APRN [facility] [place] [address] documented as of this encounter Procedures Procedure Name Priority Date/Time Associated Diagnosis Comments MAMMO SCREENING CAD AND IRVIN BILATERAL Routine 01/15/2023 1:51 PM EDT Visit for screening mammogram documented in this encounter Results * Mammo Screening Cad and Irvin Bilateral (01/15/2023 1:51 PM EDT) Anatomical Region Laterality Modality Breast Bilateral Mammography Impressions 01/15/2023 5:54 PM EDT No mammographic evidence of malignancy. RECOMMENDATION: Routine screening mammography is recommended with the frequency dependent on the patients age, breast cancer risk factors and preference. Additional studies may be recommended for women with higher than average risk for breast cancer. A result letter has been sent to this patient by the [facility]. BI-RADS Category 2: Benign * ??Regular screening mammograms starting between age 40 and 50 reduces the risk of from breast cancer. * ??All screening tests have both risks and benefits. These risks and benefits should be assessed for each individual patient through discussion with their provider to determine their preferred breast cancer screening schedule. * ??Women should report any breast changes to a health care provider right away. * ??Some women, because of their family history, a genetic tendency, or other factors, should be screened with annual breast MRI as well as with mammograms. (The number of women who fall into this category is very small). Patients and health care providers should discuss each patients history to decide if earlier screening and/or breast MRI are appropriate. * ??Screening should continue as long as a woman is in good health and is expected to live 10 years or longer. * ??Screening mammography may not detect 10-15% of breast cancers. Thank you for letting us participate in the care of this patient. ??If you are a health care provider and have any questions regarding this report, please contact the number below. ??For patients who have questions please contact the health date night caregiver that requested your imaging first. ? Narrative 01/15/2023 5:54 PM EDT REASON FOR EXAM: Screening. History of bilateral reduction mammoplasty. TECHNIQUE: CC and MLO views were obtained of BOTH breasts. 2D and 3D tomosynthesis images were obtained. Computer aided detection was used. COMPARISON: Prior images BREAST DENSITY: There are scattered areas of fibroglandular density. FINDINGS: There are no suspicious microcalcifications, masses, or areas of distortion in either breast. No significant changes compared to prior studies. Postreduction changes are stable bilaterally. Mariluz Watts MD IMG MAMMO ORDERABLES documented in this encounter Visit Diagnoses Diagnosis Visit for screening mammogram Other screening mammogram documented in this encounter Care Teams Flatwork Presser Relationship Specialty Start Date End Date Mariluz Watts MD [address] [place] [address] PCP - General 08/22/10 documented as of this encounter
--- OUTSIDE RECORDS SUMMARY | 2024-05-18 19:55 | XMS_ITS | Encounter Summary ---
Author Organization [facility] [place] [address] Care Team Providers Care Check Totaler Name Role Phone Mariluz Watts MD Primary Care Provider [phone] Encounter Details Date Type Department Care Team (Late st Contact Info) Description 04/16/2023 5:08 PM EDT Anesthesia Event [place] [address] Aide Raymundo MD [facility] DR ANESTHES[place] [address] Debbi Raza MD [facility] [place] [address] Anesthesia Record Procedure Summary Procedure Name Responsible Anesthesiologist Anesthesia Start Time Anesthesia Stop Time ANORECTAL EXAM, REQUIRING ANESTHESIA, DIAGNOSTIC (WRVU 1.8) (Anus) Aide Raymundo MD 04/16/23 1708 04/16/23 1831 Events Date Time Event Comment 04/16/2023 1319 1708 AN Verify 1708 Start 1708 An Start Data 1714 An Induction 1716 An Intubation 1720 Anesthesia Ready 1733 Quick Note LMA no longer v entilating appropriately. Attempted to reseat and manually ventilate. Removed Igel#4 and replaced for Unique #4 and after inflation of cuff, able to ventilate through newly placed LMA. 1734 Procedure Start 1805 Handoff Intra-procedure anesthesia care was transferred after review of the patient's history, current anesthetic/surgical status and procedural plan, anticipated issues and expected post-operative course (including disposition.) Ora Araujo CRNA 182 Extubation/LMA Out 1822 an stop data 183 Recovery or ICU Handoff Prisca ent care was transferred to the destination unit staff after review of the patient's medical history, current anesthetic/surgical status and plan, according to the Provider Handoff Checklist. 183 Stop Meds Name Total Propofol 140 mg fentaNYL 100 mcg IV Lidocaine 80 mg PHENYLephrine 240 mcg Tranexamic Acid INF 953 mg metroNIDAZOLE 500 mg Dexamethasone 8 mg HYDROmorphone 2 mg/mL 0.4 mg Ondansetron 8 mg ketorolac (Toradol) (30 mg/mL) injection 15 mg acetaminophen IV 1,000 mg Lactated Ringers 500 mL * Agents Name O2 Sevoflurane (et) * Blood No blood administrations on file. Lines, Drains, and Airways Type Details Placement Removal Incision 04/16/23; 1734; perirectal 04/16/23 173 by Debbi Calle, RN (RETIRED) Peripheral IV Line - Single Lumen 04/16/23; 1231; metacarpal vein (top of hand), left; mafj-fhd-krxzoz catheter system; Anatomical Landmarks; US Not Used; 20 gauge; intradermal injection; 04/16/23; 199904/16/23 1231 by Joanna Doyle RN 04/16/231999 by Tiffany Morales, RN Supraglottic Mask Ventilation: Tevin kruse (1); LMA Type: iGel; LMA Size: 4; Inserted by: MD Ermias; Removal Date: 04/16/23; Removal Time: 182104/16/231715 by Ora Araujo CRNA 04/16/231821 by Hany Piper CRNA ETT Removal Date: 04/16/23; Removal Time: 182104/16/23 1721 by Ora Araujo CRNA 04/16/23 182 by Hany Piper CRNA Supraglottic LMA Type: Unique; LM A Size: 4; Inserted by: MD Ermias; Removal Date: 04/16/23; Removal Time: 182104/16/23 1733 by Ora Araujo CRNA 04/16/23 182 by Hany Piper CRNA documented in this encounter Social History Tobacco Use Types Packs/Day Years [...] on file documented as of this encounter OR Notes * Anesthesia Postprocedure Evaluation - Aide Raymundo MD - 04/16/2023 6:48 PM EDT Department of Anesthesiology Post-procedure Note Patient: Diamond Gaming Procedure Summary Date: 04/16/23 Room / Location: [facility] OR [address] [place] [address] MAIN OR Anesthesia Start: 1707 Anesthesia Stop: 1830 Procedures: ANORECTAL EXAM, REQUIRING ANESTHESIA, DIAGNOSTIC (WRVU 1.8) (Anus) ANAL LESION DESTRUCTION, SIMPLE, ELECTRODESICCATION (WRVU 1.91) (Perineum) HEMORRHOIDECTOMY, INTERNAL & EXTERNAL, SIMPLE (WRVU 4.96) (Perineum) Diagnosis: (hemorrhoidectomy/hpv) Surgeons: Aria Higuera MD Responsible Provider: Aide Raymundo MD Anesthesia Type: general ASA Status: 3 All Anesthesia Providers: Anesthesiologist: Aide Raymundo MD; Ranjana Monson MD [employer]: Ora Araujo CRNA; Hany Piper CRNA Vitals Value Taken Time BP 129/78 04/16/23 1845 Temp Pulse Resp SpO2 93 % 04/16/23 1848 Pain Level Vitals shown include unvalidated device data. Patient Location: PACU/[facility] Level of Consciousness: Conscious but Sleepy Pain Management: Satisfactory Analgesia PONV: None Cardiovascular Status: At Baseline Respiratory Status: At Baseline Postoperative Fluid Status: Intravascular EUvolemia Possible Anesthetic Complications: NONE apparent at time of evaluation Final Primary Anesthesia Type: General (The anesthetic type performed was the same as planned.) Comments: * Anesthesia Preprocedure Evaluation - Ranjana Monson MD - 04/05/2023 1:33 PM EDT Pre-Anesthesia Evaluation for: Diamond Gaming a 77 y.o. female. Procedure(s): ANORECTAL EXAM, REQUIRING ANESTHESIA, DIAGNOSTIC (WRVU 1.8) ANAL LESION DESTRUCTION, SIMPLE, ELECTRODESICCATION (WRVU 1.91) HEMORRHOIDECTOMY, INTERNAL & EXTERNAL, SIMPLE (WRVU 4.96) Patient Active Problem List Diagnosis Date Noted Atrial fibrillation 12/12/2022 Internal hemorrhoid 12/12/2022 HPV (human papilloma virus) anogenital infection 09/07/2022 OAB (overactive bladder) 11/23/2020 Pelvic floor dysfunction 11/23/2020 Dermatochalasis of both upper eyelids 02/11/2019 Osteoarthritis of midfoot 05/23/2016 Hallux valgus of right foot 05/23/2016 Arthritis of midfoot 08/12/2013 Status post hip replacement 12/22/2012 Dupuytren's contracture 12/03/2012 S/P tubal ligation 07/25/2012 Osteoarthritis of left knee 07/25/2012 Bleeding disorder 07/25/2012 Aortic valve sclerosis 07/25/2012 Postoperative anemia due to acute blood loss 07/25/2012 S/P Left Anterior ARSLAN- 07/22/12 (Dr. 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 Diverticulosis Degenerative joint disease Past Medical History: Diagnosis Date Anxiety associated with depression Aortic valve sclerosis 07/25/2012 Atrial fibrillation Benign hypermobility syndrome Bleeding diathesis 07/25/2012 Bleeding disorder diag in 2009 Breast cancer, stage 2 01/25/2010 Cancer breast Chronic pain ibuprophen 600 mg 4x a day Degenerative joint disease Dermatochalasis of both upper eyelids 02/11/2019 Diverticulosis Genetic syndrome hypermobility syndrome GI bleeding 03/25/2011 Hypermobility syndrome Kidney disease MCFP current use of opiate analgesic Motion sickness [...] units after a lower gi bleed 2007 Social History Tobacco Use Smoking status: Former Packs/day: 1.00 Years: 3.00 Pack years: 3.00 Types: Cigarettes Quit date: 09/30/1968 Years since quittin.5 Smokeless tobacco: Never Substance Use Topics Alcohol use: No Social History Substance and Sexual Activity Drug Use No Allergies Allergen Reactions Hymenoptera Allergenic Extract Anaphylaxis Bee Stings Tetracycline Anaphylaxis Tetracyclines Anaphylaxis Plaquenil [Hydroxychloroquine] Rash and Other (See Comments) Hallucinations Gabapentin Hallucinations, suicidal thoughts and depression Trazodone Rash and Other (See Comments) Unsure if hallucinations occur with this or plaquenil. Medications: MAR and/or home medications have been reviewed. Physical Exam: Preprocedure Vitals Current as of 04/05/23 1333 No BP, pulse, respiration, SpO2, or temperature recorded. Height: Weight: BMI: IBW: Airway Assessment: Mallampati: II TM distance: >3 FB Neck ROM: full Cardiovascular Assessment: Rhythm: regular Rate: normal Pulmonary Assessment: (-) wheezes Dental Assessment: Misc Assessment: IV access: Peripheral line Last Filed Perioperative Cognitive Screening None Anesthesia Plan: ASA 3 general, with a(n) intravenous induction Please see [facility] anesthesia note from 04/05/23 in preparation for this case. Highlights include the patient's history of Marfan variant with associated bleeding dyscrasia with GI bleeding associated with diverticulosis requiring PRBC X5 in the past. For previous surgeries has had TXA, followed by hematology with recommendation for TXA pre-op requiring 10mg/kg TXA bolus prior to surgical start to aid in post-operative bleeding complications. She has a restricted right extremity from lymph node dissection after breast cancer. Plan: GA-LMA with to planned lithotomy positioning. If prone positioning is required, we will placean ETT. We will place an additional IV under anesthesia in the event there might be post-operative bleeding. The patient was informed of the risks, benefits and alternatives of anesthesia. These risks included, but were not limited to, post-operative nausea and/or vomiting, pain, sore throat, dental/lip injury, and other rare but serious complications such as cardiac instability/arrest, neurologic event, awareness, major aspiration event, severe allergic reactions, position-related nerve injuries, and need blood transfusions. All questions sought and answered. Region - Other Informed Consent: Anesthetic plan and risks discussed with patient. Use of blood products discussed with patient who consented to blood products. Plan discussed with attending. Anesthesia Screening Note: Date and Time of Entry: 04/05/2023 1:33 PM Entered By: Charmaine Terrell MD Reason for Evaluation: Surgeon Request Hx of Anesthesia Problem: None Screening Visit Type: Interviewed in person Additional/Outside Records Requested? Did not request medical information from outside organization. 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 MEDICAL HISTORY: Cardiovascular: Recent diagnosis of A-fib, found during colonoscopy, evaluation by cardiology at [facility]. with MAICO Vasc score of 3, recommendation made for elequis which she is taking. Echo 10/24/2022 shows EF 55-60%m No WMA, mod dilation of LA, mild TR, mild AV sclerosis. Patient has received instruction to stop elequis 3 days prior to procedure Denies stroke, HTN, SC Pulmonary: Remote smoking history, quit 1968, .5ppd for 3 years Denies asthma GI/hepatic/renal: History of urosepsis 2014 from kidney stones, had cysto/stent, post-op (GA) had ringing in ears which persists and is worsened by Tylenol which she takes regularly (1 gm 3-4 times per day) for arthritis She continues to have bladder spasms with urinary incontinence which is somewhat better on meds, chronic bladder infections GERD improved on omeprazole Denies hepatitis in the past Denies PONV Endo/other: History of Marfan variant with associated bleeding dyscrasia, has had GI bleed associated with diverticulosis requiring PRBC X5 in the past For previous surgeries has had TXA, followed by hematology with recommendation for TXA pre-op She has a history of metastatic left breast CA treated with surgery and radiation, right lumptectomy with left and right breast reduction No history DM or thyroid disease SURGICAL HISTORY: Cysto stent R bunionectomy Bilateral total hips Colonoscopy Lumpectomy with bilateral breast reduction ANESTHETIC HISTORY: She has had GA without difficulty, no history of PONV. She does report chronic tinnitus following GA for cysto/stent while admitted for urosepsis. She takes Tylenol regularly for arthritis despite this worsening her tinnitus Allergies noted in EMR, Labs reviewed Meds reviewed FUNCTIONAL EXERCISE TOLERANCE: patient has no limitation for daily activity despite her arthritis however she is not doing regular exercise ASSESSMENT:77 year old female for removal of anal condyloma and hemorrhoidectomy. She has A-fib with good heart function, rate controlled, and she has instruction to stop Elequis 3 days prior to surgery. Hematology has given instruction for pre-op TXA 10/mg/kg pre-op. The patient will be in lithotomy position so will likely be GA/LMA. CHARMAINE TERRELL MD Attending Anesthesiologist [facility] 04/05/2023 documented in this encounter Plan of Treatment Upcoming Encounters Date Type Department Care Team (Late st Contact Info) Description 11/16/2024 1:00 PM EST Office Visit [place] [address] Paula Harris PA [facility] [place] [address] 01/26/2025 9:50 AM EDT Appointment Mammography/[place] [address] Joan Deutsch APRN [facility] [place] [address] 01/26/2025 10:50 AM EDT Office Visit [place] [address] Joan Deutsch APRN [facility] [place] [address] documented as of this encounter Visit Diagnoses Not on filedocumented in this encounter Administered Medications Inactive Administered Medications - up to 3 most recent administrations Medication Order MAR Action Action Date Dose Rate Site acetaminophen (Ofirmev) (1,000 mg/100 mL) infusion Intravenous, Administer over 15 Minutes, PRN, Starting on Sat04/16/23 at 1818, Until Sat04/16/23 at 1831, Anesthesia Intra-op, Routine Given 04/16/2023 6:18 PM EDT 1,000 mg dexAMETHasone (Decadron) injection Intravenous, PRN, Starting on Sat04/16/23 at 1749, Until Sat04/16/23 at 1831, Anesthesia Intra-op, Routine Given 04/16/2023 5:49 PM EDT 8 mg fentaNYL (pf) (50 mcg/mL) multi-dose injection Intravenous, PRN, Starting on Sat04/16/23 at 1727, Until Sat04/16/23 at 1831, Anesthesia Intra-op, Routine Given 04/16/2023 6:02 PM EDT 25 mcg Given 04/16/2023 5:53 PM EDT 25 mcg Given 04/16/2023 5:27 PM EDT 50 mcg HYDROmorphone (Dilaudid) (2 mg/mL) multi-dose injection solution Intravenous, PRN, Starting on Sat04/16/23 at 1819, Until Sat04/16/23 at 1831, Anesthesia Intra-op, Routine Given 04/16/2023 6:19 PM EDT 0.4 mg ketorolac (Toradol) (30 mg/mL) injection Intravenous, PRN, Starting on Sat04/16/23 at 1818, Until Sat04/16/23 at 1831, Anesthesia Intra-op, Routine Given 04/16/2023 6:18 PM EDT 15 mg lactated ringers infusion Intravenous, CONTINUOUS PRN, Starting on Sat04/16/23 at 1708, Until Sat04/16/23 at 1831, Anesthesia Intra-op New Bag 04/16/2023 5:08 PM EDT lidocaine (pf) (Xylocaine) (20 mg/mL) 2% injection syringe Intravenous, PRN, Starting on Sat04/16/23 at 1714, Until Sat04/16/23 at 1831, Anesthesia Intra-op, Routine Given 04/16/2023 5:14 PM EDT 80 mg metroNIDAZOLE (Flagyl) 500 mg in sodium chloride 0.9% 100 mL infusion Intravenous, PRN, Starting on Sat04/16/23 at 1720, Until Sat04/16/23 at 1831, Administer over 30 Minutes, Anesthesia Intra-op Given 04/16/2023 5:20 PM EDT 500 mg ondansetron (pf) (Zofran) (2 mg/mL) injection Intravenous, PRN, Starting on Sat04/16/23 at 1818, Until Sat04/16/23 at 1831, Anesthesia Intra-op, Routine Given 04/16/2023 6:18 PM EDT 8 mg PHENYLephrine in NS (PF) (TOSHA-SYNEPHRINE) 0.8 mg/10 mL (80 mcg/mL) multi-dose injection Syringe Intravenous, PRN, Starting on Sat04/16/23 at 1749, Until Sat04/16/23 at 1831, Anesthesia Intra-op, Routine Given 04/16/2023 6:07 PM EDT 80 mcg Given 04/16/2023 6:06 PM EDT 80 mcg Given 04/16/2023 5:49 PM EDT 80 mcg propofoL (Diprivan) 10 mg/mL bolus injection (Anesthesia) Intravenous, PRN, Starting on Sat04/16/23 at 1714, Until Sat04/16/23 at 1831, Anesthesia Intra-op Given 04/16/2023 5:14 PM EDT 140 mg tranexamic acid (Cyklokapron) (100 mg/mL) infusion Intravenous, PRN, Starting on Sat04/16/23 at 1725, Until Sat04/16/23 at 1831, Anesthesia Intra-op, Routine Given 04/16/2023 5:25 PM EDT 953 mg documented in this encounter Care Teams Check Totaler Relationship Specialty Start Date End Date Mariluz Watts MD [address] [place] [address] PCP - General 08/22/10 documented as of this encounter
--- OUTSIDE RECORDS SUMMARY | 2024-05-18 19:55 | XMS_ITS | Encounter Summary ---
Author Organization [facility] [place] [address] Care Team Providers Care Iron Cutter Name Role Phone Mariluz Watts MD Primary Care Provider [phone] Encounter Details Date Type Department Care Team (Latest Contact Info) Description 12/12/2022 Travel Social History Tobacco Use Types Packs/Day [...] PM EST Office [place] [address] Paula Harris PA [facility] [place] [address] 01/26/2025 9:50 AM EDT Appointment Mammography[place] [address] Joan Deutsch APRN [facility] [place] [address] 01/26/2025 10:50 AM EDT Office [place] [address] Joan Deutsch, GE [facility] [place] [address] documented as of this encounter Visit Diagnoses Not on filedocumented in this encounter Care Teams Iron Cutter Relationship Specialty Start Date End Date Mariluz Watts MD [address] [place] [address] PCP - General 08/22/10 documented as of this encounter
--- OUTSIDE RECORDS SUMMARY | 2024-05-18 19:55 | XMS_ITS | Encounter Summary ---
Author Organization [facility] [place] [address] Care Team Providers Care Six Sigma Black Trainer Name Role Phone Mariluz Watts MD Primary Care Provider [phone] Encounter Details Date Type Department Care Team (Latest Contact Info) Description 02/12/2023 Travel Social History Tobacco Use Types Packs/Day [...] PM EST Office [place] [address] [facility] [place] [place] [address] 01/26/2025 9:50 AM EDT Appointment Mammography/[place] [address] [facility] [place] [place] [address] 01/26/2025 10:50 AM EDT Office [place] [address] Joan Deutsch, GE [facility] [place] [place] [address] documented as of this encounter Visit Diagnoses Not on filedocumented in this encounter Care Teams Six Sigma Black Trainer Relationship Specialty Start Date End Date Mariluz Watts MD [address] [place] [address] PCP - General 08/22/10 documented as of this encounter
--- OUTSIDE RECORDS SUMMARY | 2024-05-18 19:55 | XMS_ITS | Encounter Summary ---
[place] [address] Care Team Providers Care Net C Developer Name Role Phone Mariluz Watts MD Primary Care Provider [phone] Encounter Details Date Type Department Care Team (Latest Contact Info) Description 07/07/2023 Travel Social History Tobacco Use Types Packs/Day [...] PM EST Office [place] [address] Paula Harris PA [facility] [place] [address] 01/26/2025 9:50 AM EDT Appointment Mammography/DXA at [place] [phone] Joan Deutsch, [facility] [place] [address] 01/26/2025 10:50 AM EDT Office [place] [address] Joan Deutsch, [facility] [place] [address] documented as of this encounter Visit Diagnoses Not on filedocumented in this encounter Care Teams Net C Developer Relationship Specialty Start Date End Date Mariluz Watts MD [address] [place] [address] PCP - General 08/22/10 documented as of this encounter
--- OUTSIDE RECORDS SUMMARY | 2024-05-18 19:55 | XMS_ITS | Encounter Summary ---
Author Organization [facility] [place] [address] Care Team Providers Care Supervisor Tank Cleaning Name Role Phone Mariluz Watts MD Primary Care Provider [phone] Encounter Details Date Type Department Care Team (Late st Contact Info) Description 04/05/2023 9:40 AM EDT Office Visit Dermatology at [facility] [address] [place] [address] Cornell Hernnádez MD [facility] [place] [address] Rosacea Social History Tobacco Use Types Packs/Day [...] Progress Notes * Cornell Hernández MD - 04/05/2023 9:40 AM EDT Images from the original note [...] y.o. Patient returns to clinic today for a Rosacea follow up. Patient reports she has had a recent breakout on the right nasal sidewall, and right cheek. Patient states the papules are itchy, and tender. Patient reports she is using Rx Azelaic acidtwice daily with some relief. Last visit at Dermatology: 02/12/2023 Last visit with this provider: 02/12/2023 Medications: Reviewed in eD-H Allergies: Reviewed in eD-H Skin Examination: Focused skin examination of the face was normal with the exception of the findings below. Assessment/Plan #. Papulopustular Rosacea - Scattered inflammatory papule and pustules most prominent on the bilateral right cheek and chin. (Figure 1) - Scraping of pustule negative for Demedex today (04/05/23) - Discussed common triggers, including alcohol, exercise, caffeine, spicy foods, sun exposure, and extreme temperatures. - Discussed treatment options, including doxycycline, tretinoin, azealic acid, and amlactin rapid relief lotion. - Recommended AmLactin Rapid Relief lotion application the face daily. - Start Rx metronidazole (MetroGel) 0.75% gel: Apply topically to affected areas on face daily (either AM or PM) - Continue Rx azelaic acid 15% gel: Apply topically to affected areas on face daily (either AM or PM) - Due to allergy of tetracyclines (anaphylaxis), avoiding doxycycline for systemic treatment. - Unable to start azithromycin today given patient is on escitalopram which is a QT prolonging agent. - Start Rx: metronidazole 250 mg PO bid for 2 weeks. - Will consider adding tretinoin at next visit or switching to compounded azelaic ugal-skxmjqppanudo-hezmqcvgzd cream from [employer]. - Briefly discussed the option of treating cosmetically with V-Beam. Patient is not interested at this time. Figure 1 Photo(s) taken and charted with patient's verbal consent. Other: N/A RTC: 3 months for Rosacea follow up. []Note routed to social secretary []Recall placed in scheduling system [x]Appointment scheduled at checkout Scribe attestation: TIMUR Leal has performed the documentation for this encounter in the presence of and acting as a scribe for Cornell Hernández MD. I performed the above scribed service and agree with the accuracy of the documentation in this encounter. Reviewed and signed by: Cornell Hernández MD [facility]at[facility] Patient seen and evaluated with staff mortgage field inspector: Cande Foster MD [facility]at[facility] * Cande Foster MD - 04/05/2023 9:40 AM EDT I directly supervised the resident during this office visit. The resident physician presented the history and physical exam to me. I then saw and examined this patient with the resident. We reviewed the history and pertinent details and I confirmed the physical exam findings. I agree with the details of the history and physical exam as documented in the resident physician's note. Cande Foster MD Staff Physician [facility] Dermatology documented in this encounter Plan of Treatment Upcoming Encounters Date Type Department Care Team (Late st Contact Info) Description 11/16/2024 1:00 PM EST Office [place] [address] Paula Harris, PA [facility] [place] [address] 01/26/2025 9:50 AM EDT Appointment Mammography/DXA at [place] [phone] Joan Deutsch, [facility] [place] [address] 01/26/2025 10:50 AM EDT Office Visit General Surgery at [place] [phone] Joan Deutsch, [facility] [place] [address] documented as of this encounter Visit Diagnoses Diagnosis Rosacea documented in this encounter Care Teams Supervisor Tank Cleaning Relationship Specialty Start Date End Date Mariluz Watts MD [address] [place] [address] PCP - General 08/22/10 documented as of this encounter
--- OUTSIDE RECORDS SUMMARY | 2024-05-18 19:55 | XMS_ITS | Encounter Summary ---
[place] [address] Care Team Providers Care Cashier And Waiter/Waitress Name Role Phone Mariluz Watts MD Primary Care Provider [phone] Encounter Details Date Type Department Care Team (Late st Contact Info) Description 04/19/2023 Telephone [place] [address] Linsey Chang RN Social History Tobacco Use Types Packs/Day Years Used Date Smoking Tobacco: Former Cigarettes 1 3 0 09/30/1965 - 09/30/1968 Smokeless Tobacco: Never Alcohol Use Standard Drinks/Week Comments No 0 (1 standard drink = 0.6 oz pur e alcohol) [facility]LY [facility] Inpatient Questions Answer Date Recorded Does [...] encounter Miscellaneous Notes * Telephone Encounter - Linsey Chang RN - 04/19/2023 8:44 AM EDT Diamond phones in today with concerns of constipation and rectal bleeding. 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 She is eating a normal diet and drinking fluids. Her pain was being managed the last 2 days with 1/2 oxycodone and Tylenol, but since yesterday she has only done Tylenol and Ibuprofen. She has some bright red bleeding when wiping several times a day. She describes it as the size of a half dollar. She denies any fevers, chills or nausea. Her biggest concern is her lack of BM. She has yet to have a BM since being home. Her bowels prior to surgery were not consistant. She has taken Miralax once daily, colace once daily, Senna and 60 mL of Milk of Magnesia with no results. She is passing gas. She believes some of her discomfort is assoc iated with constipation. I asked Diamond to continue pushing her fluids, to stop taking the fiber supplement for now and to continue taking the miralax and colace. I told her I would talk with the team and call to see if theyhave any recommendations and call her back. She agrees with this plan. Addendum: Patient called back to let us know she finally had a BM and doesn't feel that there are any concerns at this time. documented in this encounter Plan of Treatment Upcoming Encounters Date Type Department Care Team (Late Contact Info) Description 11/16/2024 1:00 PM EST Office Visit General Surgery at [place] [phone] Paula Harris PA [facility] [place] [address] 01/26/2025 9:50 AM EDT Appointment Mammography/DXA at [place] [phone] Joan Deutsch, ICT SYSTEMS TEST ENGINEERFORMERLY [facility] [place] [address] 01/26/2025 10:50 AM EDT Office Visit [place] [phone] Joan Deutsch, ICT SYSTEMS TEST ENGINEER [facility] [place] [place] [address] documented as of this encounter Visit Diagnoses Not on filedocumented in this encounter Care Teams Cashier And Waiter/Waitress Relationship Specialty Start Date End Date Mariluz Watts MD [address] [place] [address] PCP - General 08/22/10 documented as of this encounter
--- OUTSIDE RECORDS SUMMARY | 2024-05-18 19:55 | XMS_ITS | Encounter Summary ---
Author Organization [facility] [place] [address] Care Team Providers Care Bath Attendant Name Role Phone Mariluz Watts MD Primary Care Provider [phone] Encounter Details Date Type Department Care Team (Late st Contact Info) Description 07/11/2023 Orders Only Dermatology at [facility] [address] [place] [address] Cornell Hernández MD [facility] [address] [place] [address] Rosacea Social History Tobacco Use Types Packs/Day [...] PM EST Office [place] [address] Paula Harris PA [facility] [place] [address] 01/26/2025 9:50 AM EDT Appointment Mammography/DXA at [place] [phone] Joan Deutsch, [facility] [place] [address] 01/26/2025 10:50 AM EDT Office [place] [phone] Joan Deutsch, [facility] [place] [address] documented as of this encounter Visit Diagnoses Diagnosis Rosacea documented in this encounter Care Teams Bath Attendant Relationship Specialty Start Date End Date Mariluz Watts MD [address] [place] [address] PCP - General 08/22/10 documented as of this encounter
--- OUTSIDE RECORDS SUMMARY | 2024-05-18 19:56 | XMS_ITS | Encounter Summary ---
Author Organization [facility] [place] [address] Care Team Providers Care Paint Prep Technician Name Role Phone Mariluz Watts MD Primary Care Provider [phone] Reason for Visit * Reason Comments Follow-up Encounter Details Date Type Department Care Team (Late st Contact Info) Description 12/26/2021 11:30 AM EDT Office Visit Hematology [place] [address] Abrahan Merlos MD [facility] HEMATOLOGY/[place] [address] Malignant neoplasm of right breast, stage 2; Other osteoporosis without current pathological fracture Social History Tobacco Use Types Packs/Day Years [...] Sign Reading Time Taken Comments Blood Pressure 139/88 12/26/2021 11:21 AM EDT Pulse 102 12/26/2021 11:21 AM EDT Temperature 35.8 ??C (96.4 ??F) 12/26/2021 11:21 AM E DT Respiratory Rate 17 12/26/2021 11:21 AM EDT Oxygen Saturation 96% 12/26/2021 11:21 AM EDT Inhaled Oxygen Concentration - - Weight 91.9 kg (202 lb 9.6 oz) 12/26/2021 11:21 AM EDT Height 165.5 cm (5' 5.16) 12/26/2021 11:21 AM E DT Body Mass Index 33.55 12/26/2021 11:21 AM EDT documented in this encounter Progress Notes * Abrahan Merlos MD - 12/26/2021 11:30 AM EDT Subjective: Patient ID: Diamond Gaming is a 76 y.o. female with Stage II breast cancer, [...] May 13, 2015. Interval History: Diamond has had a tough year, several of her oldest friends are getting sick and dying. She has iron deficiency with a hiatal hernia, and she takes a gram of iron daily. She has widespread arthralgias, worse in her hands and the left thumb, and also involving the right hip, left knee, feet, and ankles. 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 She has trouble cooking, knitting, writing, and keyboarding. She has chronicurinary incontinence, she stopped the vesicare, and kegels training did not help very much. She wears a pad and is reconciled to a small amount of daily leakage. She has an occasional headache. She walks her dog 40 minutes a day and she attends an exercise class two days a week where she exercises both her lower and her upper body. She takes Vitamin D at 4000 units daily. Review of Systems She denies breast pain or a palpable breast mass, a cough, shortness of breath, chest pain, nausea,vomiting, diarrhea, constipation, double vision, skin rashes, pain, redness, or swelling in her lower extremities, or any other sites of joint or skeletal pain. The remainder of her review of systemsis negative. Objective: Physical Exam Vitals reviewed. Constitutional: Appearance: She is well-developed. Comments: Her weight is up 10.1 kg over the past year, and her BP is 139/88. HENT: Mouth/Throat: Mouth: Mucous membranes are moist. [...] no abdominal tenderness. There is no guarding. Musculoskeletal: Cervical back: Neck supple. Comments: She has no pain on percussion over the spine, sternum, ribs, or hips. There is no edema, erythema, or warmth within her lower extremities. Skin: General: Skin is warm and dry. Findings: No erythema. Today's 3-D mammograms show no suspicious microcalcifications, masses, or architectural distortion,with stable post-treatment changes on the right. The breasts are of scattered density. Today's Dexa scan shows T scores of -1.1 in the lumbar spine (up from -1.9 in November 2019), and -2.7in the left wrist (down from -2.3 in November 2019). The most recent CBC from November 28, 2018 showed a WBC count of 5.7, Hgb 14.6,Hct 45.8, platelets 228. Chemistries from September 18, 2018 included a Na 143, K 3.5, Cl 106, bicarb 25, BUN 14, creatinine 0.64, Ca 9.5. The iron was 16, TIBC 490, and sat 3%. LFTs from December 21, 2014 showed an albumin of 4.8, bili 0.4, alk phos 84, AST 17, and ALT 19. Assessment and Plan: Ms. Gaming is doing well and she has no evidence of breast cancer recurrence. She completed five years of adjuvant anastrozole more than six years ago. Her bone density at the wrist fell over the pasttwo years, she now has osteoporosis, but she is taking a large dose of Vitamin D, and she is getting an adequate amount of exercise. Pharmacotherapy of osteoporosis would require intravenous or subcut aneous therapy, as her hiatal hernia may preclude the use of an oral bisphosphonate. We decided instead to continue her weight-bearing exercise with a focus on the arms, and Vitamin D supplementation, and we will repeat her Vitamin D level next year. I will see her next in followup in one year, Vickie will coordinate that appointment with Ms. Deutsch and with her next mammograms. Abrahan Merlos MD foreign clerk in Hematology-Oncology documented in this encounter Plan of Treatment Upcoming Encounters Date Type Department Care Team (Late st Contact Info) Description 11/16/2024 1:00 PM EST Office [place] [phone] Paula Harris PA [facility] [place] [address] 01/26/2025 9:50 AM EDT Appointment Mammography/[place] [phone] Joan Deutsch [facility] [place] [address] 01/26/2025 10:50 AM EDT Office [place] [phone] Joan Deutsch, [facility] [place] [address] documented as of this encounter Results * (ABNORMAL) Comprehensive metabolic panel (non-fasting) (01/15/2023 2:20 PM EDT) [facility] Signature Glucose 100 65 - 199 mg/dL [facility] Comment:Diabetes: >=200 mg/d L plus symptoms Blood Urea Nitrogen 17 8 - 18 mg/dL [facility] Creatinine 0.78 0.70 - 1.20 mg/dL [facility] Sodium 145 135 - 145 mmol/L [facility] Potassium 4.3 3.5 - 5.0 mmol/L [facility] Comment: Please note: ??Patients with WBC >100,000 may have falsely elevated Potassium levels. ??For accurate Potassium quantification in these patients send serum separator tube (gold top) for subsequent determinations. ??Contact the Clinical Chemistry Laboratory if there are any questions. Chloride 109(H) 98 - 107 mmol/L [facility] Carbon Dioxide 26 22 - 31 mmol/L [facility] Anion Gap 10 5 - 15 mmol/L [facility] Calcium 9.9 8.5 - 10.5 mg/dL [facility] Protein, Total 6.9 6.1 - 8.0 g/dL [facility] Albumin 4.7 3.2 - 5.2 g/dL [facility] Aspartate Aminotransferase 12 0 - 30 unit/L [facility] Alanine Aminotransferase 17 0 - 30 unit/L [facility] Alkaline Phosphatase 90 35 - 105 unit/L [facility] Bilirubin, Total 0.2 0.2 - 1.3 mg/dL [facility] Est Glomerular Filtration Rate 79 >=60 mL/min/1. 73 m?? [facility] Comment: This patient's estimated GFR was [...] Merlos MD CHEMISTRY ORDERABLES Performing Organization Address City/[facility]/ZIP Co de Phone Number [facility] [place] [address] * Vitamin D, 25-Hydroxy (01/15/2023 2:20 PM EDT) Vitamin D Total 25 OH 42 21 - 100 ng/mL [facility] Vit D Interp Sufficient [facility] Blood 01/15/2023 2:20 PM EDT 01/15/2023 2:23 PM EDT Narrative Resulting Agency Comment Spec In Lab Abrahan Merlos MD [place] [address] documented in this encounter Visit Diagnoses Diagnosis Malignant neoplasm of right breast, stage 2 Other osteoporosis without current pathological fracture documented in this encounter Care Teams Paint Prep Technician Relationship Specialty Start Date End Date Mariluz Watts MD [address] [place] [address] PCP - General 08/22/10 documented as of this encounter
--- OUTSIDE RECORDS SUMMARY | 2024-05-18 19:56 | XMS_ITS | Encounter Summary ---
Author Organization [facility] [place] [address] Care Team Providers Care Paint Roller Cover Machine Setter Name Role Phone Mariluz Watts MD Primary Care Provider [phone] Encounter Details Date Type Department Care Team (Late st Contact Info) Description 03/27/2019 2:22 PM EDT Anesthesia Event [place] [address] Francisco Javier Britt MD [facility] [place] [address] Stoney Gatica MD [facility] [place] [address] Anesthesia Record Procedure Summary Procedure Name Responsible Anesthesiologist Anesthesia Start Time Anesthesia Stop Time BLEPHAROPLASTY,UPPE R EYELID, WITH EXCESSIVE SKIN, ANDRES (WRVU 6.81) (Bilateral: Face) Francisco Javier Britt MD 03/27/19 1422 03/27/19 1500 Events Date Time Event Comment 03/27/2019 1422 AN Verify 1422 Start 1423 An Start Data 1424 1425 Anesthesia Ready 1500 an stop data 1500 Recovery or ICU Handoff Prisca ent care was transferred to the destination unit staff after review of the patient's medical history, current anesthetic/surgical status and plan, according to the Provider Handoff Checklist. 1500 Stop Meds Name Total Propofol 50 mg lactated ringers infusion 300 mL * Agents Name O2 Air N2O Sevoflurane (et) O2 Auxiliary Flowmeter 1 * Blood No blood administrations on file. Lines, Drains, and Airways Type Details Placement Removal Incision breast; 05/28/22 (LD A cleanup utility RA#[id number]); 1715 (LDA cleanup utility RA#[id number]) 03/27/11 1105 by 05/28/22 1715 by Kalee Reeves Incision breast; 05/28/22 (LD A cleanup utility RA#[id number]); 1715 (LDA cleanup utility RA#[id number]) 03/27/11 1106 by 05/28/22 1715 by Kalee Reeves Incision 07/22/12; hip; 05/28 (LDA cleanup utility RA#[id number]); 1715 (LDA cleanup utility RA#[id number]) 07/22/12 0000 by Pau Swanson RN 05/28/22 1715 by Kalee Reeves (RETIRED) Peripheral IV Line - Single Lumen 03/27/19; 1419; metacarpal vein (top of hand), left; [id number] catheter system; 20 gauge, 1 in length; Shaila Espinosa RELATIONSHIP CONSULTANT; intradermal injection; 03/27/19; 1520 03/27/19 1419 by Bing Platt RN 03/27/19 1520 by Marlys Garcia RN Incision 03/27/19; 1441; eyel id; 05/28/22 (LDA cleanup utility RA#[id number]); 1715 (LDA cleanup utility RA#[id number]) 03/27/19 1441 by Ankita Holley RN 05/28/22 1715 by Kalee Reeves Incision 03/27/19; 1441; eyel id; 05/28/22 (LDA cleanup utility RA#[id number]); 1715 (LDA cleanup utility RA#[id number]) 03/27/19 1441 by Ankita Holley RN 05/28/22 1715 by Kalee Reeves documented in this encounter Social History Tobacco [...] OR Notes * Anesthesia Postprocedure Evaluation - Francisco Javier Britt MD - 03/27/2019 3:33 PM EDT Department of Anesthesiology Post-procedure Note Patient: Diamond Gaming Procedure Summary Date: 03/27/19 Room / Location: [address] Anesthesia Start: 1422 Anesthesia Stop: 1500 Procedure: BLEPHAROPLASTY,UPPER EYELID, WITH EXCESSIVE SKIN, ANDRES (WRVU 6.81) (Bilateral Face) Diagnosis: Dermatochalasis of both upper eyelids (visually significant dermatochalasis, bilateral upper eyelids) Surgeon: Debbi Green MD Responsible Provider: Francisco Javier Britt MD Anesthesia Type: MAC ASA Status: 2 All Anesthesia Providers: Anesthesiologist: Francisco Javier Britt MD RELATIONSHIP CONSULTANT: Shaila Espinosa CRNA Vitals Value Taken Time BP 137/77 03/27/2019 3:15 PM Temp Pulse 74 03/27/2019 3:16 PM Resp 16 03/27/2019 3:03 PM SpO2 98 % 03/27/2019 3:16 PM Pain Level 0 03/27/2019 3:24 PM Vitals shown include unvalidated device data. Patient Location: PACU/[facility] Level of Consciousness: Awake and Alert Pain Management: Satisfactory Analgesia PONV: None Cardiovascular Status: At Baseline and Hemodynamically Stable Respiratory Status: At Baseline and Room Air Postoperative Fluid Status: Intravascular EUvolemia Possible Anesthetic Complications: NONE apparent at time of evaluation Final Primary Anesthesia Type: MAC (The anesthetic type performed was the same as planned.) Comments: FRANCISCO JAVIER BRITT MD * Anesthesia Preprocedure Evaluation - Francisco Javier Britt MD - 03/27/2019 2:19 PM EDT Pre-Anesthesia Evaluation for: Diamond Gaming a 73 y.o. female. Procedure(s): BLEPHAROPLASTY,UPPER EYELID, WITH EXCESSIVE SKIN, ANDRES (WRVU 6.81) Patient Active Problem List Diagnosis ??? Dermatochalasis of both upper eyelids ??? Osteoarthritis of midfoot ??? Hallux valgus of right foot ??? Arthritis of midfoot ??? Status post hip replacement ??? Dupuytren's contracture ??? S/P tubal ligation ??? Osteoarthritis of left knee ??? Bleeding diathesis ??? Aortic valve sclerosis Echo 12/25/2011- EF~60-65%, aortic sclerosis without stenosis, stage II diastolic dysfunction ??? Postoperative anemia due to acute blood loss Monitored closely, asymptomatic, BP stable, Hgb- 8.1 prior to discharge. ??? S/P Left Anterior ARSLAN- 07/22/12 (Dr. Ervin) Date: Jul 2211-11 Surgeon: Nick Ervin MD Surgical Procedure Performed: Injection left hip with 10 cc marcaine 0.25% with epi, into skin and subcutaneous tissues (CPT [id number]) left total hip arthroplasty, anterior Hueter approach with Livingston table (CPT code 90946) Left hip intraoperative radiologic examination (CPT code 47442) Amicar infusion (5 g IV load, then 1g/hr x 3 hrs) Components Used: Florence Accolade stem, size 4, 127 degrees Trident PSLcup, 52 mm, solid 32 mm ID, alumina 32-4 mm alumina head ??? Hip pain ??? S/P Right ARSLAN 03/06/2005 ([facility]) SURGERY DATE: 03/06/2005 AR[facility]IO STEINER, NICK Angel Surgical Procedure Performed: Right total hip arthroplasty, cementless, [id number]-[id number]-tknkubs Components Used: Florence Trident 52 shell outer diameter Femoral head 32-4 mm Florence Accolade Femoral stem size 4, 127 deg ??? Rosacea ??? GI bleeding In 2006 ??? Anxiety associated with depression ??? 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 Diverticulosis - LGIB, 2006 requiring 5Units blood ??? Degenerative joint disease Rt ARSLAN ??? Malignant neoplasm of right breast, stage 2 Ms. Gaming presented on screening mammography January [...] and thumb, hips, knees, feet, and ankles. Past Medical History: Diagnosis Date ??? Anxiety associated with depression ??? Aortic valve sclerosis 07/25/2012 ??? Benign hypermobility syndrome ??? 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 Bleeding disorder diag in 2009 ??? Breast cancer, stage 2 01/25/2010 ??? Cancer breast ??? Chronic pain ibuprophen 600 mg 4x a day ??? Degenerative joint disease ??? Dermatochalasis of both upper eyelids 02/11/2019 ??? Diverticulosis ??? Genetic syndrome hypermobility syndrome ??? GI bleeding 03/25/2011 ??? rn long term care current use of opiate analgesic ??? Motion sickness severe ??? Osteoarthritis of left knee 07/25/2012 ??? Other complications of anesthesia, sequela constant ringing in ears. increased dizziness ??? Post-operative nausea and vomiting I have severe motion sickness and need a scopolamine patch. ??? Postoperative anemia due to acute blood loss ??? Rosacea 03/25/2011 ??? Status post radiation therapy ??? Syncope distant past ??? Transfusion history 5 units after a lower gi bleed 2007 Social History Tobacco Use ??? Smoking status: Former Smoker Packs/day: 1.00 Years: 3.00 Pack years: 3.00 Types: Cigarettes Last attempt to quit: 09/30/1968 Years since quittin.5 ??? Smokeless tobacco: Never Used Substance Use Topics ??? Alcohol use: No Social History Substance and Sexual Activity Drug Use No Allergies Allergen Reactions ??? Hymenoptera Allergenic Extract Anaphylaxis Bee Stings ??? Tetracycline Anaphylaxis ??? Tetracyclines Anaphylaxis ??? Plaquenil [Hydroxychloroquine] Rash and Other (See Comments) Hallucinations ??? Trazodone Rash and Other (See Comments) Unsure if hallucinations occur with this or plaquenil. Medications: MAR and/or home medications have been reviewed. Physical Exam: Most Recent Vitals: 03/27/19 1353 BP: 123/80 Pulse: 89 Resp: 18 Temp: 37.1 ??C (98.8 ??F) SpO2: 94% Body mass index is 33.78 kg/m??. Height: 165.1 cm (5' 5) Weight: 92.1 kg (203 lb) Airway Assessment: Mallampati: II TM distance: >3 FB Neck ROM: full Cardiovascular Assessment: cardiovascular exam normal Pulmonary Assessment: pulmonary exam normal Dental Assessment: Misc Assessment: IV access: Peripheral line Anesthesia Plan: ASA 2 MAC, with a(n) intravenous induction Region - Other Informed Consent: Anesthetic plan and risks discussed with patient. Plan discussed with RELATIONSHIP CONSULTANT. PAT Clinic Note documented in this encounter Plan of Treatment Upcoming Encounters Date Type Department Care Team (Late st Contact Info) Description 11/16/2024 1:00 PM EST Office [place] [phone] Paula Harris PA [facility] [place] [address] 01/26/2025 9:50 AM EDT Appointment Mammography/[place] [phone] Joan Deutsch APRN [facility] [place] [address] 01/26/2025 10:50 AM EDT Office Visit General Surgery at [place] [phone] Joan Deutsch, GE [facility] [address] [place] [address] documented as of this encounter Visit Diagnoses Not on filedocumented in this encounter Administered Medications Inactive Administered Medications - up to 3 most recent administrations Medication Order MAR Action Action Date Dose Rate Site propofol (DIPRIVAN) 10 mg/mL bolus injection (Anesthesia) PRN, Starting on Sat03/27/19 at 1433, Until Sat03/27/19 at 1500, Anesthesia Intra-op Given 03/27/2019 2:33 PM EDT 50 mg documented in this encounter Care Teams Paint Roller Cover Machine Setter Relationship Specialty Start Date End Date Mariluz Watts MD [address] [place] [address] [address] [place] [address] PCP - General 08/22/10 documented as of this encounter
--- OUTSIDE RECORDS SUMMARY | 2024-05-18 19:56 | XMS_ITS | Encounter Summary ---
[place] [address] Care Team Providers Care Geography Professor Name Role Phone Mariluz Watts MD Primary Care Provider [phone] Encounter Details Date Type Department Care Team (Latest Contact Info) Description 03/12/2019 9:29 AM EDT - 03/12/2019 11:59 PM EDT Hospital Encounter [place] [address] Iron deficiency anemia, unspecified iron deficiency anemia type Discharge Disposition: Home Social History Tobacco Use [...] Sig Dispensed Refills Start Date End Date tolterodine LA (Detrol LA) 4 mg ER 24 hr capsule Take 4 mg by mouth daily. 01/15/2023 erythromycin (ROMYCIN) 5 mg/gram (0.5 %) Ointment Apply to both eye lids 3 times daily for 7 days. 3.5 g 3 03/27/2019 04/03/2019 artificial tear (TEARS) Drops 1 drop 3 times daily as needed. 09/07/2022 multivit with calcium,iron,min ([id number]-VB-LOTV-M INERALS ORAL) Take by mouth. 09/07/2022 omeprazole (PRILOSEC) 20 mg Capsule, Delayed Release(E.C.) Take 20 mg by mouth daily. 10/11/2020 DULoxetine (CYMBALTA) 60 mg Capsule, Delayed Release(E.C.) Take 60 mg by mouth daily. 11/23/2019 acetaminophen (TYLENOL) 500 mg Tablet Take 1,000 mg by mouth every 6 hours as needed for Pain. 09/07/2022 metroNIDAZOLE (METROGEL) 0.75 % GelIndications:Rosacea Apply to the face twice daily as needed. 45 g 2 08/14/2018 09/07/2022 diaZEPam (VALIUM) 2 mg Tablet Take 2 mg by mouth nightly as needed for Anxiety. 09/07/2022 cholecalciferol, Vitamin D3, (VITAMIN D) 1,000 unit Tab tablet Take 1 tablet by mouth daily. 60 tablet 5 07/25/2012 09/07/2022 documented as of this encounter Plan of Treatment Upcoming Encounters Date Type Department Care Team (Late st Contact Info) Description 11/16/2024 1:00 PM EST Office [place] [phone] [facility] [place] [address] 01/26/2025 9:50 AM EDT Appointment Mammography/[place] [address] [facility] [place] [place] [address] 01/26/2025 10:50 AM EDT Office [place] [address] Joan Deutsch, GE [facility] [place] [place] [address] documented as of this encounter Procedures Procedure Name Priority Date/Time Associated Diagnosis Comments HEMOGRAM Routine 03/12/2019 9:45 AM EDT Iron deficiency anemia, unspecified iron deficiency anemia type FERRITIN Routine 03/12/2019 9:45 AM EDT Iron deficiency anemia, unspecified iron deficiency anemia type documented in this encounter Results * Hemogram (03/12/2019 9:45 AM EDT) White Blood Cell 5.7 4.0 - 9.5 x10(3)/[facility] LABORATORY Red Blood Cell 5.16 4.00 - 5.21 x10(6)/[facility] LABORATORY Hemoglobin 14.6 11.7 - 15.5 gm/dL [facility] Hematocrit 45.8 35.7 - 45.8 % [facility] Mean Cell Volume 88.8 82.6 - 94.4 [facility] LABORATORY Mean Cell Hemoglobin 28.3 27.1 - 32.0 pg [facility] Mean Cell Hemoglobin Concentration 31.9 31.7 - 35.0 gm/dL [facility] Platelet 228 145 - 357 x10(3)/[facility] LABORATORY RDW Standard Deviation 44.1 37.0 - 46.0 [facility] LABORATORY RDW coefficient of variation 13.6 11.5 - 14.1 % [facility] Mean Platelet Volume 11.1 7.6 - 12.9 [facility] LABORATORY NRBC% auto 0.0 % [facility] NRBC Absolute 0.000 0.000 - 0.000 x10(3)/[facility] LABOR[facility]ORY Blood specimen (specimen) 03/12/2019 9:45 AM EDT 03/12/2019 9:50 AM EDT Narrative Resulting Agency Comment Spec In Lab Charity De La Cruz MD HEMATOLOGY ORDERAB LES Performing Organization Address City/[facility]/ZIP Co de Phone Number [facility] [place] [address] * Ferritin (03/12/2019 9:45 AM EDT) Ferritin 83 30 - 400 ng/mL [facility] Comment: Pediatric reference ranges not verified at [facility], interpret with caution. Reference ranges for females greater than 50 years of age approach values for men, i.e., 30-400 ng/mL. Blood specimen (specimen) 03/12/2019 9:45 AM EDT 03/12/2019 9:50 AM EDT Narrative Resulting Agency Comment Spec In Lab Charity De La Cruz MD CHEMISTRY ORDERABL ES Performing Organization Address [facility] Co de Phone Number [facility] [place] [address] documented in this encounter Visit Diagnoses Diagnosis Iron deficiency anemia, unspecified iron deficiency anemia type documented in this encounter Care Teams Geography Professor Relationship Specialty Start Date End Date Mariluz Watts MD [address] [place] [address] PCP - General 08/22/10 documented as of this encounter
--- OUTSIDE RECORDS SUMMARY | 2024-05-18 19:56 | XMS_ITS | Encounter Summary ---
[place] [address] Care Team Providers Care Meter Maker Name Role Phone Mariluz Watts MD Primary Care Provider [phone] Encounter Details Date Type Department Care Team (Late st Contact Info) Description 05/26/2019 Telephone [place]ematology [place] [phone] Laisha Grady RN Social History Tobacco Use Types Packs/Day [...] encounter Miscellaneous Notes * Telephone Encounter - Laisha Grady RN - 05/26/2019 4:46 PM EDT Images from the original note were not included. Diamond Gaming Gender (Pref): Female 73 y.o., 1945 *[phone] (Home Phone) HCA: Not Active Need Department Clerk: Date of Encounter: May 26, 2019 T/C to Ms Gaming. She requests a copy of Dr. De La Cruz's last clinical note be forwarded to her primary care Dr. Watts (done today). The patient reports that her primary care will f/u regarding thepatient's iron def. See 03/12/[address] De La Cruz. Copy of note also mailed to the patient. Laisha Grady, MSN RN pastor pt has low ferritin levels Received: Yesterday Message Contents Natalya Locke Laurel, RN; Maricarmen Martins RN ?? Hello! PT called a few weeks back re: her recent labs. She's still having low ferritin levels and wants toknow how to proceed. Not sure if she needs more labs and/or where to go to get them. Please call PT at home to advise at [phone]. Thanks for your time, Natalya documented in this encounter Plan of Treatment Upcoming Encounters Date Type Department Care Team (Late st Contact Info) Description 11/16/2024 1:00 PM EST Office [place] [phone] Paula Harris PA [facility] [place] [address] 01/26/2025 9:50 AM EDT Appointment Mammography[place] [address] Joan Deutsch APRN [facility] [place] [address] 01/26/2025 10:50 AM EDT Office [place] [phone] Joan Deutsch APRN [facility] [place] [address] documented as of this encounter Visit Diagnoses Not on filedocumented in this encounter Care Teams Meter Maker Relationship Specialty Start Date End Date Mariluz Watts MD [address] [place] [address] PCP - General 08/22/10 documented as of this encounter
--- OUTSIDE RECORDS SUMMARY | 2024-05-18 19:56 | XMS_ITS | Encounter Summary ---
Author Organization [facility] [place] [address] Care Team Providers Care Analytical Lab Analyst Name Role Phone Mariluz Watts MD Primary Care Provider [phone] Reason for Referral * Diagnostic Test (Routine) - Closed Specialty Diagnoses / Procedures Referred By Contac t Referred To Contact Radiology Diagnoses Osteopenia of left forearm Procedures DXA Central Spine, Hip, and/or Whole Body (Generic) Abrahan Merlos MD [facility] HEMATOLOGY/[place] [address] [facility] Rad Xray [address] [place] [address] [place] [address] Referral ID Status Reason Start Date Expiration Date V isits Requested Visits Authorized [id number] Closed Specialty Service Requested 12/22/2020 06/24/2022 1 1 Reason for Visit * Diagnostic Test (Routine) - Closed Specialty Diagnoses / Procedures Referred By Contac t Referred To Contact Radiology Diagnoses Osteopenia of left forearm Procedures DXA Central Spine, Hip, and/or Whole Body (Generic) Abrahan Merlos MD [facility] HEMATOLOGY/[place] [address] [facility] Rad Xray [address] [place] [address] [place] [address] Referral ID Status Reason Start Date Expiration Date V isits Requested Visits Authorized [id number] Closed Specialty Service Requested 12/22/2020 06/24/2022 1 1 Encounter Details Date Type Department Care Team (Latest Contact Info) Description 12/26/2021 9:19 AM EDT - 12/26/2021 11:59 PM EDT Hospital Encounter Mammography/[facility]A at [facility] [place] [address] bArahan Merlos MD [facility] HEMATOLOGY/[place] [address] Osteopenia of left forearm Discharge Disposition: Home Social History Tobacco Use [...] TABLET DAILY 90 tablet 3 07/09/2021 11/18/2023 [id number] ORAL Take 1 caplet by mouth daily. 09/07/2022 diclofenac (VOLTAREN) 1 % GelIndications:Thumb pain, left Apply 1 g topically 4 times daily as needed. 100 g 5 12/11/2019 09/07/2022 escitalopram (Lexapro) 20 mg Tablet Take 30 mg by mouth daily. 10/07/2019 09/07/2022 ascorbic acid, vitamin C, (VITAMIN C) 500 mg Tablet, Chewable Take by mouth. ferrous sulfate 325 mg (65 mg iron) Tablet Take 25 mg by mouth daily. 09/07/2022 artificial tear (TEARS) Drops 1 drop 3 times daily as needed. 09/07/2022 multivit with calcium,iron,min (EJOTZCPJUIJS-YW-ETYR- MINERALS ORAL) Take by mouth. 09/07/2022 acetaminophen (TYLENOL) 500 mg Tablet Take 1,000 [...] PM EST Office [place] [phone] Paula Harris PA [facility] [place] [address] 01/26/2025 9:50 AM EDT Appointment Mammography[place] [phone] Joan Deutsch APRN [facility] [place] [place] [address] 01/26/2025 10:50 AM EDT Office [place] [phone] Joan Deutsch APRN [facility] [place] [address] documented as of this encounter Procedures Procedure Name Priority Date/Time Associated Diagnosis Comments DXA CENTRAL SPINE, HIP, AND/OR WHOLE BODY (GENERIC) Routine 12/26/2021 10:53 AM EDT Osteopenia of left forearm documented in this encounter Results * DXA Central Spine, Hip, and/or Whole [...] BMD measurements and plots are available in [employer] under the imaging tab. Paper copies will be sent to providers without [employer] access. If you have received this report without the data sheet and do not have access to [employer], please contact Radiology Production Machine Shop Supervisor at [phone] Saturday thru Saturday 8am-4pm. Thank you for letting us participate in the care of this patient. ??If you are a health care provider and have any questions regarding this report, please contact the number below. ??For patients who have questions please contact the health career development associate that requested your imaging first. ? Electronically signed by: Juan Antonio Ibarra MD, [facility] ([phone]), at 12/26/2021 12:42 PM Narrative 12/26/2021 12:42 PM EDT EXAMINATION: DXA CENTRAL SPINE, HIP, AND/OR WHOLE BODY (GENERIC) CLINICAL HISTORY: ??76 years Female 76 year old woman with osteopenia at the wrist and spine (as entered by ordering provider) TECHNIQUE: Scans were acquired at the lumbar spine and left forearm using the [employer] A system. L1 and L3 were excluded [...] the lumbar spine and left forearm usingthe [employer] A system. L1 and L3 were excluded [...] BMD measurements and plots are available in [employer] the imaging tab. Paper copies will be sent to providers without [employer] access.If you have received this report without the data sheet and do not haveaccess to [employer], please contact Radiology [facility] at [phone] Saturday thruFriday 8am-4pm. Thank you for letting us participate in the care of this patient. If youare a health care provider and have any questions regarding this report,please contact the number below. For patients who have questions please contactthe health career development associate that requested your imaging first. Electronically signed by: Juan Antonio Ibarra MD, [facility]([phone]), at 12/26/2021 12:42 PM Arbahan Merlos MD IMG DEXA ORDERABLES documented in this encounter Visit Diagnoses Diagnosis Osteopenia of left forearm documented in this encounter Care Teams Analytical Lab Analyst Relationship Specialty Start Date End Date Mariluz Watts MD [address] [place] [address] PCP - General 08/22/10 documented as of this encounter
--- OUTSIDE RECORDS SUMMARY | 2024-05-18 19:56 | XMS_ITS | Encounter Summary ---
[place] [address] Care Team Providers Care Outside Cutter Name Role Phone Mariluz Watts MD Primary Care Provider [phone] Encounter Details Date Type Department Care Team (Latest Contact Info) Description 12/26/2021 9:18 AM EDT Hospital Encounter Mammography/[place] [address] Joan Deutsch APRN [facility] [place] [address] History of breast cancer; Encounter for screening mammogram for breast cancer [...] TABLET DAILY 90 tablet 3 07/09/2021 11/18/2023 [id number] ORAL Take 1 caplet by mouth daily. [...] daily as needed. 09/07/2022 multivit with calcium,iron,min (JDKOUPIOHEMV-VH-DKVF- MINERALS ORAL) Take by mouth. 09/07/2022 acetaminophen [...] PM EST Office [place] [address] Paula Harris PA [facility] [place] [address] 01/26/2025 9:50 AM EDT Appointment Mammography/[place] [phone] Joan Deutsch, [facility] [place] [address] 01/26/2025 10:50 AM EDT Office [place] [phone] Joan Deutsch, [facility] [place] [address] documented as of this encounter Procedures Procedure Name Priority Date/Time Associated Diagnosis Comments MAMMO SCREENING CAD AND IRVIN BILATERAL Routine 12/26/2021 10:20 AM EDT History of breast cancer Encounter for screening mammogram for breast cancer documented in this encounter Results * Mammo Screening Cad and Irvin Bilateral (12/26/2021 10:20 AM EDT) Anatomical Region Laterality Modality Breast Bilateral Mammography Narrative 12/26/2021 11:07 AM EDT EXAMINATION: MAMMO SCREENING CAD AND IRVIN BILATERAL REASON FOR EXAM: Screening. History of right breast cancer. TECHNIQUE: CC and MLO views were obtained of both breasts. Computer aided detection was used. 3D tomosynthesis images were obtained in addition to 2D images. COMPARISON: The study is compared with prior images. FINDINGS: Breast density: There are scattered areas of fibroglandular density There are no suspicious microcalcifications, masses, or areas of distortion. There are post treatment changes in the right breast. CONCLUSION: No mammographic evidence of malignancy. RECOMMENDATION: Routine annual screening. BIRADS CATEGORY 2: BENIGN FINDINGS * ??Regular screening mammograms starting between age [...] Patients and health care providers should discuss the history of each patient to decide if earlier screening and/or breast [...] who have questions please contact the health patient care director that requested your imaging first. ? Electronically signed by: Gardenia Wolf MD, [facility] ([phone]), at 12/26/2021 11:07 AM Joan Deutsch BIOLOGY SPECIMEN TECHNICIAN IMG MAMMO ORDERABLE S documented in this encounter Visit Diagnoses Diagnosis History of breast cancer Personal history of malignant neoplasm of breast Encounter for screening mammogram for breast cancer documented in this encounter Care Teams Outside Cutter Relationship Specialty Start Date End Date Mariluz Watts MD [address] [place] [address] PCP - General 08/22/10 documented as of this encounter
--- OUTSIDE RECORDS SUMMARY | 2024-05-18 19:56 | XMS_ITS | Encounter Summary ---
[place] [address] Care Team Providers Care Adult And Pediatric Neurologist Name Role Phone Mariluz Watts MD Primary Care Provider [phone] Reason for Visit * Reason Comments Medication Refill Encounter Details Date Type Department Care Team (Late Contact Info) Description 07/08/2021 [place] [address] Bella Keenan MD [facility] [place] [address] Social History Tobacco Use Types Packs/Day Years [...] PM EST Office Visit General Surgery at [address] Paula Harris PA [facility] [place] [address] 01/26/2025 9:50 AM EDT Appointment Mammography/[place] [address] Joan Deutsch APRN [facility] [place] [address] 01/26/2025 10:50 AM EDT Office Visit [place] [address] Joan Deutsch, GE [facility] [place] [address] documented as of this encounter Visit Diagnoses Not on filedocumented in this encounter Care Teams Adult And Pediatric Neurologist Relationship Specialty Start Date End Date Mariluz Watts MD [address] [facility] [place] [address] PCP - General 08/22/10 documented as of this encounter
--- OUTSIDE RECORDS SUMMARY | 2024-05-18 19:56 | XMS_ITS | Encounter Summary ---
Author Organization [facility]ly [facility] [place] [address] Care Team Providers Care Collar Turner Name Role Phone Mariluz Watts MD Primary Care Provider [phone] Reason for Visit * Reason Comments Skin Check Encounter Details Date Type Department Care Team (Late st Contact Info) Description 08/04/2020 11:00 AM EST Office Visit Dermatology at [facility] [address] [place] [address] Terry Min MD [facility] [place] [address] Neoplasm of uncertain behavior of skin; Inflamed seborrheic keratosis; Multiple benign nevi; Folliculitis Social History Tobacco Use Types Packs/Day Years [...] on file documented as of this encounter Patient Instructions * Patient Instructions* Sumi Noonan - 08/04/2020 11:00 AM EST Treatment and Wound Care Instructions Your treatment today: You have had a shave biopsy of your skin, which is a removal of tissue for examination under a microscope. This wound will heal without stitches. Allow 3-6 weeks for the wound to heal. If bleeding occurs, hold firm pressure against the wound for 15 minutes. If bleeding continues, calls the office or go to your local emergency room. Please allow 1-2 weeks for the biopsy results to return. Your physician or nurse will contact you with the results by phone or letter; follow-up will be discussed at that time. Wound Care Instructions: You will need to keep the dressing placed over the wound dry and intact for 24 hours. Afterwards, perform the following wound care daily: ?? Wash your hands before changing the dressing. ?? Remove the bandage and clean the area with mild soap and water, then gently pat the area dry. ?? Apply a small amount of Vaseline to the area, then cover the wound with a band-aid. Change your dressing daily until the wound is fully healed. ?? A small amount of yellow drainage is part of normal healing. The area might appear as a small depression with redness around the edge of the wound. This is normal. ?? Please contact the office you you notice any of the following signs of infection: increased tenderness, pain, drainage, or redness that becomes hot or hard around the wound. If you have further questions or concerns, please call the office at [phone]. If it is after 5PM, or a holiday or weekend, please call [phone] and ask for the Rim Turning Finisher on-call. documented in this encounter Progress Notes * Terry Min MD - 08/04/2020 11:00 AM EST Images from the original note were not included. DERMATOLOGY - ESTABLISHED PATIENT FOLLOW-UP Date of service: 08/04/2020 Diamond Gaming : 1945, 74 y.o. CC: Skin exam HPI: Diamond Gaming is a 74 y.o. female last seen by me Ms. Gaming returns today for a skin exam with concerns of a itchy lesion located on the mid back, near bra line. Patient reports it has been present since summer time. Lesion on the right cheek that patient reports was previously frozen with LN2. Lesion on the left baptist that patient noticed a couple months ago. Denies pain or bleeding. Itchy lesion on the central upper back. Itchy lesion on the m id back. Denies pain or bleeding Ok to leave a detailed message? Yes Is there anyone who we can share your labs and/or biopsy results with? No Relevant Skin History: - Skin cancer (including type): No - SK's Family History: Melanoma: Social History: - Medications: Current Outpatient Medications Medication Sig Dispense Refill ??? diclofenac (VOLTAREN) 1 % Gel Apply 1 g topically 4 times daily as needed. 100 g 5 ??? escitalopram (Lexapro) 20 mg Tablet ??? ascorbic acid, vitamin C, (VITAMIN C) 500 mg Tablet, Chewable Take by mouth. ??? magnesium 250 mg Tablet Take by mouth. ??? ferrous sulfate 325 mg (65 mg iron) Tablet Take 25 mg by mouth daily. ??? artificial tear (TEARS) Drops 1 drop 3 times daily as needed. ??? multivit with calcium,iron,min ([id number]-XZ-GULQ-MINERALS ORAL) Take by mouth. ??? omeprazole (PRILOSEC) 20 mg Capsule, Delayed Release(E.C.) Take 20 mg by mouth daily. ??? acetaminophen (TYLENOL) 500 mg Tablet Take 1,000 mg by mouth every 6 hours as needed for Pain. ??? metroNIDAZOLE (METROGEL) 0.75 % Gel Apply to the face twice daily as needed. 45 g 2 ??? diaZEPam (VALIUM) 2 mg Tablet Take 2 mg by mouth nightly as needed for Anxiety. ??? cholecalciferol, Vitamin D3, (VITAMIN D) 1,000 unit Tab tablet Take 1 tablet by mouth daily. (Patient taking differently: Take 3,000 Units by mouth daily. ) 60 tablet 5 No current facility-administered medications for this visit. Allergies: Allergies Allergen Reactions ??? Hymenoptera Allergenic Extract Anaphylaxis Bee Stings ??? Tetracycline Anaphylaxis ??? Tetracyclines Anaphylaxis ??? Plaquenil [Hydroxychloroquine] Rash and Other (See Comments) Hallucinations ??? Gabapentin Hallucinations, suicidal thoughts and depression ??? Trazodone Rash and Other (See Comments) Unsure if hallucinations occur with this or plaquenil. Review of Systems: - General: Feels well. - Skin: No other skin concerns. Examination: - Constitutional: Patient was alert, well-appearing and in no noticeable distress. - Skin: Skin examination of the scalp, face, ears, neck, back, chest, abdomen, right and left upperextremities, right and left lower extremities, hands, feet, and buttocks was normal with the exception of the findings listed below. Genitalia not examined. Diagnosis/Skin findings/Assessment/Plan: #. DDx: ISK vs. BCC - 0.7cm eroded pearly papule on the central upper back Procedure Shave Biopsy Discussed with patient diagnostic options, including the risks and benefits of observation, empirictreatment, and biopsy, including but not limited to recurrence, cosmesis (scar, dyspigmentation, scar spread,keloid), pain, keloid/hypertrophic scar, bleeding, infection. Patient verbally understandsand elects biopsy. -Time Out Performed: Full Name, , and site(s) confirmed with patient -Site was prepped in sterile fashion with Alcohol. Anesthesia with 1% lidocaine + 1:100,0000 epinephrine. Lesion biopsied with shave technique using jono blade. -Hemostasis achieved with Drysol. <1ml blood loss. No complications. Specimen(s): Placed in formalin and sent to Pathology for histologic examination. Post-op care: Vaseline, Pressure Dressing #. Irritated Seborrheic keratosis - yellow to castillo stuck on papule on the left shoulder x1, mid backx1 -benign nature of lesions discussed -patient reassured. Hx of intermittent itch. Plan: Treatment with LN2 Procedure Note: Procedure: Destruction of lesion(s) with cryotherapy. Number: 1 Location: as above Discussed procedure and expectations including risks (including risk of hypopigmentation) and benefits. Verbal consent obtained. Frozen with LN2, 15-30 second thaw time, TWICE. There were no complications; the patient tolerated the procedure well. Post-procedure expectations and wound care were reviewed. #. Previously treated Irritated Seborrheic keratosis - yellow to castillo stuck on papule on the right cheek -benign nature of lesions discussed -patient reassured. Hx of intermittent itch. -No charge Plan: Treatment with LN2 Procedure Note: Procedure: Destruction of lesion(s) with cryotherapy. Number: 1 Location: as above Discussed procedure and expectations including risks (including risk of hypopigmentation) and benefits. Verbal consent obtained. Frozen with LN2, 15-30 second thaw time, TWICE. There were no complications; the patient tolerated the procedure well. Post-procedure expectations and wound care were reviewed. #. Nevi - scattered brown macules on the back, chest, and face w/o concerning findings on dermoscopy -including the patient's lesion of concern on the left baptist -pt reassured -advised the pt to monitor nevi monthly and if they are growing, changing color, or new lesions appear pt should call back to be seen before there next FBSE #. Resolving Folliculitis; Patient with scattered follicular-based erythematous papules on the right hip near the site of a surgical scar -Pt reassured. No further intervention RTC: 1 year for a FSE or sooner PND pathology The following photos were obtained with patient consent: Note initiated by Charu Alcazar LPN. Clinical scribe: Sumi Noonan - I am documenting this encounter acting as the scribe for and in the presence of Terry Min MD. I performed the above scribed service and agree with the accuracy of the documentation in this encounter. Reviewed and signed by Terry Min MD Department of Dermatology [facility] documented in this encounter Plan of Treatment Upcoming Encounters Date Type Department Care Team (Late st Contact Info) Description 11/16/2024 1:00 PM EST Office [place] [address] Paula Harris PA [facility] [place] [address] 01/26/2025 9:50 AM EDT Appointment Mammography/[place] [address] Joan Deutsch APRN [facility] [place] [address] 01/26/2025 10:50 AM EDT Office [place] [phone] Joan Deutsch APRN [facility] [place] [address] documented as of this encounter Procedures Procedure Name Priority Date/Time Associated Diagnosis Comments SPECIMEN TO PATHOLOGY Routine 08/04/2020 11:16 AM EST Neoplasm of uncertain behavior of skin SURGICAL PATHOLOGY REPORT Routine 08/04/2020 11:09 AM EST documented in this encounter Results * Specimen to Pathology (08/04/2020 11:16 AM EST) AP Specimen 08/04/2020 11:1 6 AM EST 08/04/2020 3:35 PM EST Narrative [facility] - 08/04/2020 3:36 PM EST Specimen requisition ordered. ??Separate Pathology report to follow Resulting Agency Comment Spec In Lab Terry Min MD PATHOLOGY/CYTOLOGY O RDERALIANA [facility] [place] [place] [address] * Surgical Pathology Report (08/04/2020 11:09 AM EST) Final Diagnosis [id number] ? Location: [facility] The signing pathologist has (i) examined the relevant preparation(s) for the specimen(s) and (ii) rendered or confirmed the diagnosis(es). . ?Surgical Pathology DIAGNOSIS Central upper back, skin shave biopsy: - ??Lichenoid keratosis , multiple deeper levels examined Electronically signed by: ??Mike STEINER, PhD, Afshan Verified: ??08/10/2020 ?Dermatopathol ogist Performed at: ??-[facility] Dept. of Pathology, [place], [place] SPECIMEN(S) SUBMITTED A - Central upper back, skin shave biopsy (1) CLINICAL INFORMATION ISK vs. BCC-0.7 cm eroded pearly papule on the central upper back SPECIMEN PROCESSING A - Labeled/Fixativ e: Patient demographics, formalin. Quantity/Size: ??Single, 0.5 x 0.4 x 0.1 cm. Tissue Description: Shave of granular, castillo-white skin. Sections/Proces sing: Inked, bisected and entirely submitted in 1 cassette labeled A1. ??PPS 08/10/2020 4:07 PM EST [facility] SPECIMEN FROM SKIN / Unknown 08/04/2020 11:09 AM EST 08/04/2020 11:09 AM EST Terry Min MD PATHOLOGY/CYTOLOGY O JOSELUIS [facility] [place] [address] documented in this encounter Visit Diagnoses Diagnosis Neoplasm of uncertain behavior of skin Inflamed seborrheic keratosis Multiple benign nevi Benign neoplasm of skin, site unspecified Folliculitis Other specified disease of hair and hair follicles documented in this encounter Care Teams Collar Turner Relationship Specialty Start Date End Date Mariluz Watts MD [address] [facility] [address] [place] [address] PCP - General 08/22/10 documented as of this encounter
--- OUTSIDE RECORDS SUMMARY | 2024-05-18 19:56 | XMS_ITS | Encounter Summary ---
Author Organization [facility] [place] [address] Care Team Providers Care Safety Sealer Name Role Phone Mariluz Watts MD Primary Care Provider [phone] Reason for Referral * Diagnostic Test (Routine) - Closed Specialty Diagnoses / Procedures Referred By Contac t Referred To Contact Radiology Diagnoses Osteopenia of multiple sites Procedures DXA Central-Spine, Hip, And/Or Whole Body (Generic) Abrahan Merlos MD [facility] HEMATOLOGY/[place] [address] [facility] Rad Xray [address] [place] [address] [place] [address] Referral ID Status Reason Start Date Expiration Date V isits Requested Visits Authorized [id number] Closed Specialty Service Requested 12/26/2018 12/26/2019 1 1 Reason for Visit * Diagnostic Test (Routine) - Closed Specialty Diagnoses / Procedures Referred By Contac t Referred To Contact Radiology Diagnoses Osteopenia of multiple sites Procedures DXA Central-Spine, Hip, And/Or Whole Body (Generic) Abrahan Merlos MD [facility] HEMATOLOGY/[place] [address] [facility] Rad Xray [address] [place] [address] [place] [address] Referral ID Status Reason Start Date Expiration Date V isits Requested Visits Authorized [id number] Closed Specialty Service Requested 12/26/2018 12/26/2019 1 1 Encounter Details Date Type Department Care Team (Latest Contact Info) Description 12/11/2019 10:41 AM EDT Hospital Encounter XRay at [address] [place] [address] Abrahan Merlos MD [facility] HEMATOLOGY/[place] [address] Osteopenia of multiple sites Discharge Disposition: Home Social History Tobacco Use [...] Take 4 mg by mouth daily. 01/15/2023 escitalopram (Lexapro) 20 mg Tablet Take 30 mg by mouth daily. 10/07/2019 09/07/2022 ascorbic acid, vitamin C, (VITAMIN C) 500 mg Tablet, Chewable Take by mouth. magnesium 250 mg Tablet Take by mouth. ferrous sulfate 325 mg (65 mg iron) Tablet Take 25 mg by mouth daily. 09/07/2022 artificial tear (TEARS) Drops 1 drop 3 times daily as needed. 09/07/2022 multivit with calcium,iron,min ([id number]-M INERALS ORAL) Take by mouth. 09/07/2022 omeprazole (PRILOSEC) 20 mg Capsule, Delayed Release(E.C.) Take 20 mg by mouth daily. 10/11/2020 acetaminophen (TYLENOL) 500 mg Tablet Take 1,000 [...] PM EST Office [place] [address] Paula Harris PA [facility] [place] [address] 01/26/2025 9:50 AM EDT Appointment Mammography/[place] [phone] Joan Deutsch APRN [facility] [place] [address] 01/26/2025 10:50 AM EDT Office [place] [address] Joan Deutsch APRN [facility] [place] [address] documented as of this encounter Procedures Procedure Name Priority Date/Time Associated Diagnosis Comments DXA CENTRAL SPINE, HIP, AND/OR WHOLE BODY (GENERIC) Routine 12/11/2019 11:11 AM EDT Osteopenia of multiple sites documented in this encounter Results * DXA Central Spine, Hip, and/or Whole Body (Generic) (12/11/2019 11:11 AM EDT) Anatomical Region Laterality Modality C-spine, Hip N/A Other Impressions 12/11/2019 11:47 AM EDT Measurements meet WHO criteria for osteopenia. Bone mineral density measurements are decreased by 3.9% over 3 years. Estimating Fracture Risk: The relationship between bone [...] BMD measurements and plots are available in EForMune under the imaging tab. Paper copies will be sent to providers without E- access. If you have received this report without the data sheet and do not have access to EForMune, please contact Radiology Passport Application Examiner at [phone] Saturday thru Saturday 8am-4pm. Thank you for letting us participate in the care of this patient. For questions regarding this report, please contact the number below. ? Narrative 12/11/2019 11:47 AM EDT EXAMINATION: DXA CENTRAL SPINE, HIP, AND/OR WHOLE BODY (GENERIC) CLINICAL HISTORY: ??73 year old woman with osteopenia at the wrist and spine compare to prior scan of December 11, 2016 (as entered by ordering provider) TECHNIQUE: Scans were acquired at the lumbar spine, and left forearm. FINDINGS: Femoral neck BMD: Not obtained due to the patient's history of bilateral hip replacements. Lowest T-score at the diagnostic region of interest: T-score: -2.3, ROMÁN: Distal one third radius of the left forearm, WHO diagnosis: osteopenia. ......... Comparison......... Previous scan:12/11/2016 Baseline scan:09/13/2008 Total spine: Compared to the previous, 0.035 ??g/cm2 (3.9 %) decrease. Compared to the baseline, 0.042 g/cm2 (4.6 %) decrease. At [facility], least significant change for bone mineral density measurements at the spine region of interest: 0.031 g/cm2 Procedure Note Jesusita Nazario MD - 12/11/2019 EXAMINATION: DXA CENTRAL SPINE, HIP, AND/OR WHOLE BODY (GENERIC) CLINICAL HISTORY: 73 year old woman with osteopenia at the wrist andspine compare to prior scan of December 11, 2016 (as entered by orderingprovider) TECHNIQUE: Scans were acquired at the lumbar spine, and left forearm. FINDINGS: Femoral neck BMD: Not obtained due to the patient's history of bilateralhip replacements. Lowest T-score at the diagnostic region of interest: T-score: -2.3, ROMÁN: Distal one third radius of the left forearm, WHOdiagnosis: osteopenia. ......... Comparison......... Previous scan:12/11/2016 Baseline scan:09/13/2008 Total spine: Compared to the previous, 0.035 g/cm2 (3.9 %) decrease. Compared to the baseline, 0.042 g/cm2 (4.6 %) decrease. At [facility], least significant change for bonemineral density measurements at the spine region of interest: 0.031 g/cm2 IMPRESSION Measurements meet WHO criteria for osteopenia. Bone mineral density measurements are decreased by 3.9% over 3 years. Estimating Fracture Risk: The relationship between bone [...] BMD measurements and plots are available in ESETVIunder the imaging tab. Paper copies will be sent to providers without Geswind access.If you have received this report without the data sheet and do not haveaccess to iMICROQ, please contact Radiology Passport Application Examiner at [phone] Saturday thruFriday 8am-4pm. Thank you for letting us participate in the care of this patient. Forquestions regarding this report, please contact the number below. Abrahan Merlos MD IMG DEXA ORDERABLES documented in this encounter Visit Diagnoses Diagnosis Osteopenia of multiple sites documented in this encounter Care Teams Safety Sealer Relationship Specialty Start Date End Date Mariluz Watts MD [address] [facility] [address] [place] [address] PCP - General 08/22/10 documented as of this encounter
--- OUTSIDE RECORDS SUMMARY | 2024-05-18 19:56 | XMS_ITS | Encounter Summary ---
[place] [address] Care Team Providers Care Marker Hand Name Role Phone Mariluz Watts MD Primary Care Provider [phone] Encounter Details Date Type Department Care Team (Late st Contact Info) Description 12/26/2021 1:00 PM EDT Office [place] [address] Joan Deutsch APRN [facility] [place] [address] Encounter for screening mammogram for breast cancer; [...] Progress Notes * Joan Deutsch APRN - 12/26/2021 1:00 PM EDT Diamond is a 76 y.o[address] Pt of Dr. Marquez who returns [...] carcinoma with lobular features Tumor Grade: Intermediate Fmaxxk-Uqqcw-Kljixcqyhs Score: 7 Tubular Differentiation: 3 Mitotic Rate: [...] sentinel nodes: 2 (Specimen A - Right [place] node) No. positive for carcinoma: 1 (H&E) No. with IHC (+) cells only: 0 (cells not seen by H&E, see Note*) No. negative for carcinoma: 1 (both H&E and IHC For positive nodes: Largest kristi deposit 0.2 cm Extranodal extension Absent Estrogen/Progestin receptors: Performed on blocks C2 and C11 ER immunoreactivity: Positive (see Diagnostic hanna*) WI immunoreactivity: Positive (see Diagnostic hanna*) HER2/shonda expression by FISH: Negative Kimi was returned to the OR for deep margin excision. This was negative for residual malignancy. Kimi declined chemotherapy and proceeded to whole breast xrt. She completed 5 years of arimidex. She is still bothered by her smaller than expected breast size after reduction. Kimi has had a bit of a rough year with friends having strokes, open heart surgeries, and her dog . She did get a new dog and things are looking up. No changes in her medical history. She deniesany new aches or pains, cp, sob, and headaches. On exam, well appearing and in nad. No cervical, supraclavicular or axillary adenopathy. B/L reduction mammoplasty incisions well healed. Fat necrosis in the right breast 10:00 1x2cm and left breast at 12:00 and 3:00 at areolar border approximately 1cm. No additional masses appreciated. 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 Plan follow up in 1 year with bilateral mammogram. She will continue vitamin d/calcium supplementation. She is getting weight bearing exercise. She and Dr. Merlos opted to not start medication as she is hesitant. I will see her in one year with a mammogram. She knows to call with questions in the interim. Joan Deutsch APRN documented in this encounter Plan of Treatment Upcoming Encounters Date Type Department Care Team (Late st Contact Info) Description 11/16/2024 1:00 PM EST Office [place] [address] Paula Harris PA [facility] [place] [address] 01/26/2025 9:50 AM EDT Appointment Mammography/[place] [phone] Joan Deutsch [facility] [place] [address] 01/26/2025 10:50 AM EDT Office [place] [phone] Joan Deutsch, [facility] [address] documented as of this encounter Visit Diagnoses Diagnosis Encounter for screening mammogram for breast cancer History of breast cancer Personal history of malignant neoplasm of breast documented in this encounter Care Teams Marker Hand Relationship Specialty Start Date End Date Mariluz Watts MD [address] [place] [address] [place] [address] PCP - General 08/22/10 documented as of this encounter"
--- OUTSIDE RECORDS SUMMARY | 2024-05-18 19:56 | XMS_ITS | Encounter Summary ---
[place] [address] Care Team Providers Care Archeologist Classical Name Role Phone Mariluz Watts MD Primary Care Provider [phone] Encounter Details Date Type Department Care Team (Late st Contact Info) Description 08/30/2022 [place] [address] Bella Junior Social History Tobacco Use Types Packs/Day Years [...] encounter Miscellaneous Notes * Telephone Encounter - Bella Junior - 08/30/2022 2:05 PM EST Diamond Gaming [id number] Diagnosis/Indication: 5 yr surv from 03/26/17 Please review patient chart to confirm if previous Endoscopy procedure was performed within [facility]. If yes, take note of Anesthesia type used. If previous procedure found, and with MAC/propofol Anesthesia support was used, schedule this procedure with Anesthesia and skip the Anesthesia portion of questions. If not performed within [facility] system, not performed at all, or performed with IVCS, ask Anesthesia questions. SCHEDULING QUESTIONS (ask all patient these questions) 1. Have you ever had a/an Colonoscopy before? Yes: Date 03/26/17 If yes, did you have any problems with the procedure (such as waking up during the procedure, pain or difficulties afterwards, etc.)? No What type of sedation was used: IV Conscious Sedation 2. Do you take any blood thinners or have you been diagnosed with a bleeding disorder that increases your risk of bleeding with procedures? Yes: Type: Benign hypermobility syndrome 3. Do you have a Pacemaker or Defibrillator device? If yes, send pool message to Cardiology with patient information and date or procedure. No 4. Are you a diabetic? If yes, call PCP/managing provider to discuss use of prep and any questions or concerns related to. No 5. Do you take any iron supplements or vitamins that contain iron? No 6. Do you have a preference regarding the gender of your provider? No ANESTHESIA QUESTIONS (YES to any question, please book with Anesthesia support) 7. Have you ever been diagnosed with any of the following: Pulmonary Hypertension, Atrial Fibrillation (A-Fib) and/or Congential Heart Disease? No 8. Have you ever had an allergic or adverse reaction to Fentanyl or Versed? No 9. Have you had a problem with sedation or anesthesia? (Waking up during procedure, extreme confusion after, etc.) Yes ringing in ears 10. Do you have a diagnosis of Obstructive Sleep Apnea? No 11. Do you use a c-pap machine? Neither 12. Do you use an oxygen tank at home? No 13. Do you use a rescue inhaler more than twice per day? (COPD, severe asthma) No 14. Do you experience breathing problems when you lay flat for a period of time? No 15. Do you take prescription narcotic pain medications, including suboxone or methodone? No SCHEDULING CONFIRMATIONS: Please note any and all parts of your conversation with the patient here. 16. We offer all new patients an opportunity to have an appointment with one of our associate care providers to learn more about your upcoming procedure, ask questions and get answers. These appointments are offered via telehealth. Would you be interested in scheduling this appointment? (Only ask if NEW referral patient; skip this question if GI provider ordered the procedure.) No 17. Is there any other information or concerns you would like to us to share with your care team inrelation to your upcoming scheduled procedure? Yes: needs a pillow under knees 18. You must have a responsible constitution party who will drive you to your procedure, stay on campus for the entire duration of your procedure, and drive you home from your procedure. Who will likely be your milk pickup truck driver for the procedure? *Please Verify the height and weight, and adjust if height and/or weight have changed* Estimated body mass index is 33.55 kg/m?? as calculated from the following: Height as of 12/26/21: 165.5 cm (5' 5.16). Weight as of 12/26/21: 91.9 kg (202 lb 9.6 oz). Age:76 y.o. documented in this encounter Plan of Treatment Upcoming Encounters Date Type Department Care Team (Late st Contact Info) Description 11/16/2024 1:00 PM EST Office Visit General Surgery at [address] Paula Harris PA [facility] [place] [address] 01/26/2025 9:50 AM EDT Appointment Mammography/DXA at [place] [phone] Joan Deutsch APRN [facility] [place] [address] 01/26/2025 10:50 AM EDT Office Visit General Surgery at [place] [phone] Joan Deutsch APRN [facility] [place] [address] documented as of this encounter Visit Diagnoses Not on filedocumented in this encounter Care Teams Archeologist Classical Relationship Specialty Start Date End Date Mariluz Watts MD [address] [place], [place] [address]Y [facility] [address] [place] [address] PCP - General 08/22/10 documented as of this encounter
--- OUTSIDE RECORDS SUMMARY | 2024-05-18 19:56 | XMS_ITS | Encounter Summary ---
Author Organization [facility] Address [facility] [place] [address] Care Team Providers Care Glazier Structural Glass Name Role Phone Mariluz Watts MD Primary Care Provider [phone] Reason for Visit * Physical Therapy (Routine) - Closed Specialty Diagnoses / Procedures Referred By John lyons Referred To Contact Physical Therapy Diagnoses OAB (overactive bladder) Bella Keenan MD [facility] [place] [address] [facility] [address] [place] [address] Referral ID Status Reason Start Date Expiration Date V isits Requested Visits Authorized [id number] Closed Evaluate and Treat 10/11/2020 10/11/2021 12 12 Encounter Details Date Type Department Care Team (Late st Contact Info) Description 12/29/2020 11:00 AM EDT Office Visit Rehab PT at [facility] [address] [place] [address] Shaila Rendon PT OAB (overactive bladder); Pelvic floor dysfunction Social History Tobacco Use Types Packs/Day Years [...] as of this encounter Miscellaneous Notes * Treatment - Therapy - Shaila Rendon, PT - 12/29/2020 11:00 AM EDT Physical Therapy Daily Treatment Note Diagnosis and Pertinent Co-morbidities affecting Plan of Care: ICD-10-CM 1. OAB (overactive bladder) N32.81 2. Pelvic floor dysfunction M62.89 Initial evaluation date: 11/23/2020 Visit number: 3 Referring Provider: Bella Keenan Primary Therapist: Shaila Rendon, PT Precautions: SUBJECTIVE: Diamond reports she is better. Walking dog (now that foot is feeling better) without gushes or planning around it, medication is helping, nocturnal waking 2 for toileting. No significantgushing. Stronger with holding; not feeling like leaking, waiting, etc. Pad is still used 2x daily and one at night, but never soaking. Much better than 8! Taking less Tylenol at recommendation of oncology, which is resulting in increased pain. Ex class, walking, stationary cycle. 95% better. OBJECTIVE: Patient deferred internal manual or sEMG assessment at this time. Manual Therapy: []? PFM STM []? Vaginal []? rectal []? manual stretching Neuromuscular Re-education: 30 min []? SEMG biofeedback ?? [x]? Instruction in PFM contraction/Kegel with full relaxation in between -- feedback to decrease abdominal contribution []?Long hold 10 on, 10 off, using visual cue of SEMG graph [x]?Quick Flick, attention to full relaxation in between 3 sets of 5 reps [x]?Downtraining/relaxation: ??vc to close eyes and take deep breaths ?? [x]? Pelvic Floor training: [x]?Long hold 10 on, 20 off,5-10 reps 3x/day [x]? Short holds 5 on, 10 off, 5-10 reps 3x/day [x] quick flicks []? Hip RC PREs: hip abd/ER with theraband and hip add/IR with ball, in sitting, 3 sets of 5 reps [x]? Sitting with pressure on perineum feedback, PFM contraction/Kegel []? Sit<>stand from ball, PFM with initiation of motion in each direction [x]??? Squats, PFM contraction with eccentric lowering into squat, stopping when feeling loss of contraction and returning to stand, progressively going lower with contraction maintained [x]? Education in use of functional PFM contraction, performing a pelvic Knack during functional mobility: Pushing, pulling, lifting, carrying, bed mobility, transfers, sneezing [x] performing exercises in different positions: Supine and SL as getting OOB is the most challenging at this time, sitting, standing, squatting, single leg balance, and walking [x] regular daily performance will continue to strengthen PFM, ongoing [x] perform Kegel in bed, then exhale and roll to side, Kegel, exhale with SL to sit, Kegel, then walk to bathroom ?? [x]? Urge suppression: [x]? Sit down [x]? Pelvic floor contraction [x]? 3 sets of 5 reps of 5 on 10 off [x]? Long hold 30 sec [x]? Quick flick x5-10 [x]? Distraction -- think about garden [x]? Deep breath and relax [x]? Perineal pressure, can keep a pair of mittens in car console for travel pressure [x]? Walk normally to toilet, once urge goes away, do not vasquez ?? Therapeutic exercise: 10 min [x]? Stretching []? Pelvic floor; Happy baby, child's pose or modification for increased hip flexion []? LB, []? LE, ?? []? Strengthening -- patient is attending an exercise class ?? Self-care/Training: []? Toilet positioning with stool to elevate legs and mechanics -- not interested in stool at home []? sensory exploration -- is comfortable where she is at []? Bladder diary [] recommended footwear, Merrel low hikers, for ambulation post foot surgery [] discussed ambulation over consistent surfaces, as uneven surfaces results in changes in intraabdominal pressure and overcoming PFM control []? Diaphragmatic breathing -- patient is already doing yoga breathing during bladder spasms 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 follow HEP as instructed above. ASSESSMENT: Diamond responded well to today's treatment. She is noting the combination of medicationand PFM exercises has resulted in decreased incontinence. No leaking with coughing or sneezing, just when full. Most challenging is when rising after sleeping. Agreed with patient that this can be last visit as travel is significant. She is very pleased with results and agrees to continue with regular daily HEP and follow up with urologist. Goals: MET date Short Term Therapy Goals (3 months, 02/20/2021) 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... ??MET 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 demonstrate the ability to adhere to an independent home program of pelvic floormuscle exercises for continued improvements in PFM function and functional ability. ??MET 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 report a 50% decrease in urinary incontinence episodes per voiding log. ??NT at patient's request 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 demonstrate an increase in pelvic floor muscle endurance to 7 sec for improved continence. ??pt deferred Patient to complete SEMG evaluation. ?? 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 demonstrate ability to perform PFM contraction with good quality 75% accuracy, no overflow or breath holding. ?? 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 ? MET date Alf Therapy Goals (6 months, 05/23/2021) 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... ??MET Patient to be independent in the performance of a HEP of PFM exercises on a daily basis to increase strength and recruitment to increase continence control. ??MET 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 demonstrate use of functional PFM contraction, performing a pelvic Knack to reduce by 75% or eliminate UI during functional mobility. ??MET per pt report 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 report a 50% decrease in urinary incontinence episodes per voidinglog. ??2 wakings Nocturia normal for the patients age 3 for restorative sleep. ??MET Improvement in PFDI-20 by 20% for statistically significant improvement in functional ability. ??MET 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 report reduced gush frequency to less than daily. ?? PLAN:Discontinue treatment with HEP provided Total Treatment Time: 40 minutes Total Timed Code Treatment: 40 minutes Shaila Rendon PT documented in this encounter Plan of Treatment Upcoming Encounters Date Type Department Care Team (Late st Contact Info) Description 11/16/2024 1:00 PM EST Office Visit General Surgery at [place] [phone] Paula Harris, [place] [facility] [place] [address] 01/26/2025 9:50 AM EDT Appointment Mammography/DXA at [place] [phone] Joan Deutsch, GE [facility] [place] [address] 01/26/2025 10:50 AM EDT Office Visit General Surgery at [place] [phone] Joan Deutsch, GE [facility] [place] [address] documented as of this encounter Visit Diagnoses Diagnosis OAB (overactive bladder) Hypertonicity of bladder Pelvic floor dysfunction Pelvic muscle wasting documented in this encounter Care Teams Glazier Structural Glass Relationship Specialty Start Date End Date Mariluz Watts MD [address] [place] [address] PCP - General 08/22/10 documented as of this encounter
--- OUTSIDE RECORDS SUMMARY | 2024-05-18 19:56 | XMS_ITS | Encounter Summary ---
Author Organization [facility] [place] [address] Care Team Providers Care Sticker Machine Operator Name Role Phone Mariluz Watts MD Primary Care Provider Reason for Visit * Reason Comments Skin Check * Consultation (Routine) - Specialty Diagnoses / Procedures Referred By John lyons Referred To Contact Dermatology Diagnoses Disorder of the skin and subcutaneous tissue, unspecified subcutaneous tissue disorder Mariluz Watts MD [address] [facility] [address] [place] [address] [facility] Dermatology [address] [place] [address] Referral ID Status Reason Start Date Expiration Date V isits Requested Visits Authorized [id number] Consult, Test & Treat PCP Updated and/or Approved 05/27/2019 11/27/2019 6 6 Encounter Details Date Type Department Care Team (Late st Contact Info) Description 08/03/2019 11:00 AM EST Office Visit Dermatology at [facility] [address] [place] [address] Terry Min MD [facility] [place] [address] Seborrheic keratoses; Seborrheic keratosis, inflamed; Carlos angioma Social History Tobacco Use Types Packs/Day Years [...] as of this encounter Progress Notes * Terry Min - 08/03/2019 11:00 AM EST Images from the original note were not included. DERMATOLOGY - ESTABLISHED PATIENT FOLLOW-UP Date of service: 08/03/2019 Diamond Gaming : 1945, 73 y.o. Chief Complaint: Chief Complaint Patient presents with ??? Skin Check HPI: Diamond Gaming is a 73 y.o. female last seen by Juliet Lechuga PA-C on 08/14/2018. Ms. Gaming returns today for a full skin check. She has some brown spots onher face that her glassesrub on that are intermittently itchy. 2 spots on her left arm that are itchy otherwise she has no skin concerns Relevant Skin History: - Skin cancer (including type): None Sks Medications: Current Outpatient Medications Medication Sig Dispense Refill ??? ascorbic acid, vitamin C, (VITAMIN C) 500 mg Tablet, Chewable Take by mouth. ??? magnesium 250 mg Tablet Take by mouth. ??? ferrous sulfate 325 mg (65 mg iron) Tablet Take 25 mg by mouth daily. ??? artificial tear (TEARS) Drops 1 drop 3 times daily as needed. ??? multivit with calcium,iron,min (RZMRVXZGWMEO-EA-IOLR-MINERALS ORAL) Take by mouth. ??? omeprazole (PRILOSEC) 20 mg Capsule, Delayed Release(E.C.) Take 20 mg by mouth daily. ??? DULoxetine (CYMBALTA) 60 mg Capsule, Delayed Release(E.C.) Take 60 mg by mouth daily. ??? acetaminophen (TYLENOL) [...] the findings listed below. Genitalia not examined. - A female nurse was present and on standby during my examination. Diagnosis/Skin findings/Assessment/Plan: #. Carlos Angioma(s)-Multiple 0.2-0.4cm bright red, well-demarcated papules with well formed lobules on dermoscopy -reassured pt of benign nature and that more would come with increasing age' #. Seborrheic keratosis. Scattered yellow to castillo stuck on papules 3-6 mm in size -benign nature of lesions discussed -patient reassured. #. ISKs-Irritated Multiple 0.4-1 cm, brown-black papules/plaques with waxy stuck on appearance,facex 2, left forearm x 1, right upper chest x 2 Procedure Note: Procedure: Destruction of lesion(s) with cryotherapy. Number: 5 Location: as above Discussed procedure and expectations including risks (including risk of hypopigmentation) and benefits. Verbal consent obtained. Frozen with LN2, 15-30 second thaw time, TWICE. There were no complications; the patient tolerated the procedure well. Post-procedure expectations and wound care were reviewed. RTC: PRN for new concerning lesions Note initiated by FELY HOLLOWAY LPN. I, FELY HOLLOWAY LPN, have performed the documentation for this encounter in the presence of and acting as a scribe for Terry Min MD. I performed the services which were documented by the scribe, and I agree with the accuracy of the documentation in this encounter. Terry Min MD Reviewed and signed by: Terry Min MD Resident in Dermatology [facility] Patient seen and evaluated with staff delivery technician: José Manuel Kelly MD Section of Dermatology [facility] * José Manuel Kelly MD - 08/03/2019 11:00 AM EST I directly supervised Dr. Min in the care of this patient. I saw and evaluated this patient with Dr. Min. He presented the history and physical exam details to me, then we saw the patient together and I confirmed these findings. I agree with details as written. My physical examination confirms Dr. Min' findings. The assessment and plan were formulated in discussion with me at the time of visit and I agree withthem as documented. JOSÉ MANUEL KELLY MD [facility] Staff Physician documented in this encounter Plan of Treatment Upcoming Encounters Date Type Department Care Team (Late st Contact Info) Description 11/16/2024 1:00 PM EST Office [place] [phone] Paula Harris PA [facility] [address] 01/26/2025 9:50 AM EDT Appointment Mammography/DXA at [place] [phone] Joan Deutsch, GE [facility] [address] 01/26/2025 10:50 AM EDT Office Visit General Surgery at [place] [phone] Joan Deutsch, GE [facility] [address] documented as of this encounter Visit Diagnoses Diagnosis Seborrheic keratoses Other seborrheic keratosis Seborrheic keratosis, inflamed Inflamed seborrheic keratosis Carlos angioma Nevus, non-neoplastic documented in this encounter Care Teams Sticker Machine Operator Relationship Specialty Start Date End Date Mariluz Watts MD [address] [place] [address] [facility] [facility] 1 [place] [address] PCP - General 08/22/10 documented as of this encounter
--- OUTSIDE RECORDS SUMMARY | 2024-05-18 19:56 | XMS_ITS | Encounter Summary ---
[place] [address] Care Team Providers Care Learning Technologist Name Role Phone Mariluz Watts MD Primary Care Provider [phone] Encounter Details Date Type Department Care Team (Latest Contact Info) Description 03/27/2019 1:45 PM EDT - 03/27/2019 3:30 PM EDT Hospital Encounter [place] [address] Debbi Green MD [facility] [place] [address] Discharge Disposition: Home Social History Tobacco Use [...] Sign Reading Time Taken Comments Blood Pressure 137/77 03/27/2019 3:15 PM EDT Pulse 73 03/27/2019 3:15 PM EDT Temperature 36.7 ??C (98.1 ??F) 03/27/2019 3:01 PM ED T Respiratory Rate 16 03/27/2019 3:03 PM EDT Oxygen Saturation 99% 03/27/2019 3:15 PM EDT Inhaled Oxygen Concentration - - Weight 92.1 kg (203 lb) 03/27/2019 1:53 PM EDT Height 165.1 cm (5' 5) 03/27/2019 1:53 PM EDT Body Mass Index 33.78 03/27/2019 1:53 PM EDT documented in this encounter Discharge Instructions * Patient Instructions* Debbi Green MD - 03/27/2019 2:10 PM EDT POST-OPERATIVE INSTRUCTIONS after EYELID and ORBITAL Surgery WOUND CARE Apply ice (most patients prefer a bag of frozen peas) to the area of surgery for the first 24 hours. This is essential for reducing the amount of swelling and bruising. It is normal to have mild bleeding/drainage from the incisions for the first couple of days. Apply the ointment to the incision(s) 3x/day for 1 week (you may experience blurriness if the ointment gets into the eyes - this is ok). This provides comfort to the incision while it heals. If you develop itching and increasing redness, please discontinue the ointment as this may be a sign of an allergic reaction. If you feel your eyes are dry, you may use the ointment in the eye or an frcn-rwa-aumdrlq artificial tear drop. Your bruising and swelling will look its worse within the first 24 - 48 hours after surgery. GENERAL POST-OPERATIVE INSTRUCTIONS If you were given a prescription for antibiotics, take as directed until all pills are gone. If youdevelop a rash, itching, trouble breathing, or feel you are having any other reaction to the pills,do not take any more and contact Dr. Green's office immediately. For the first 48 hours after surgery sleep with your head elevated on at least 2 pillows. This willhelp decrease the swelling. You may shower and wash your hair the day after surgery. The sutures may get wet but avoid direct impact of water. When drying the eye area, blot rather than rub dry. Do not exert yourself for the first 5 days following surgery. This includes bending over, lifting heavy objects, exercising, working out, and other activities requiring exertion. You may read, run errands, and perform other activities that do not require exertion. Sutures should be fully dissolved 5 to 30 days after surgery. It is normal for one eye to heal morequickly than the other. It is also normal for the incisions to look pink, lumpy, and bumpy 1 to 30 days following surgery. The incisions can be gently rubbed (after 10 days) with a towel to encouragethe sutures to dissolve. DO NOT APPLY VITAMIN E TO THE EYELID AREA - it will burn the skin If you have pain, take Tylenol. If this does not relieve the pain, call Dr. Green. DO NOT TAKE ASPIRIN, MOTRIN, ADVIL, EXCEDIN, OR ANY OTHER PAIN KILLER WITHOUT SPECIFIC PERMISSION TO DO SO - these may cause additional bruising. You may resume all above medicines and Vitamin E 3 days after surgery. You may wear contact lenses whe you feel comfortable inserting them. DO NOT WEAR DARK MAKEUP (I.E. MASCARA OR EYELINER) FOR 14 DAYS AFTER SURGERY - this may pigment the incision. You may wear cover-up the following day (ie Dermablend) If you have severe pain, or your wound site becomes increasingly red and painful, begins bleeding heavily, or develops a greenish discharge, or if you develop fever or any other concern about your condition, call Dr. Green immediately. She may be reached at [phone]: PLEASE DO NOT HESITATE TO CALL IF YOU ARE HAVING A PROBLEM!! There is always a doctor insulation board coater operator at the eye clinic. documented in this encounter Medications at Time [...] daily as needed. 09/07/2022 multivit with calcium,iron,min (NAFYALSKBWLT-XS-XSCD-M INERALS ORAL) Take by mouth. 09/07/2022 omeprazole [...] 07/25/2012 09/07/2022 documented as of this encounter H&P Notes * Debbi Green MD - 03/27/2019 2:09 PM EDT Seen in pre-operative area. Diamond Gaming reports that she is in her usual state of health and hashad no new problems with her eyes or general health since her pre op physical examination and she feels fit for surgery today. Operative and post op plans reviewed, informed consent signed and in chart. Source Note - Debbi Green MD - 03/27/2019 2:08 PM EDT Patient Name: Diamond Gaming Patient Age: 73 y.o. Birthdate: 1945 Admit date: 03/27/2019 Attending Physician: Debbi Green MD Please see scanned preop H&P by Mariluz Watts MD on 03/12/19. Cleared for surgery. * Debbi Green MD - 03/27/2019 2:08 PM EDT Patient Name: Diamond Gaming Patient Age: 73 y.o. Birthdate: 1945 Admit date: 03/27/2019 Attending Physician: Debbi Green MD Please see scanned preop H&P by Mariluz Watts MD on 03/12/19. Cleared for surgery. documented in this encounter Miscellaneous Notes * Op Note - Debbi Green MD - 03/27/2019 2:09 PM EDT [facility] Operative Note Patient Name: Diamond Gaming : [id number] MR#: [id number] Case Date: 03/27/2019 Surgeon: Surgeon(s) and Role: * Debbi Green MD - Primary Preoperative diagnosis: visually significant dermatochalasis, bilateral upper eyelids Postoperative diagnosis: visually significant dermatochalasis, bilateral upper eyelids Procedure(s) (LRB): BLEPHAROPLASTY,UPPER EYELID, WITH EXCESSIVE SKIN, ANDRES (WRVU 6.81) (Bilateral) Anesthesia: MAC Estimated Blood Loss: minimal Specimens removed during surgery: None Drains: none Surgical Closure: Primary Closure - skin incision is completely closed without any wires, citlali, drains or other devices Disposition: awakened from anesthesia and taken to the recovery room in a stable condition, having suffered no apparent untoward event. Condition: doing well without problems (Please see the Surgical Encounter Summary for any Implant and Specimen details pertinent to this patient.) Indications for procedure: Diamond presented with dermatochalasis of the bilateral upper lids causing obstruction of vision and affecting activities of daily living. Examination revealed dermatochalasis of the bilateral upper lids and Goldmann visual field testing confirmed visual field defects thatimproved with taping of the lid on both sides. Given the patient's visually significant dermatochalasis, surgery was recommended to improve visual function. Description of procedure: After informed consent for the procedure was obtained, the patient was brought to the operating room where the operative site was confirmed. Monitored anesthesia care was established without complication. A roughly elliptical area of tissue to be excised from the bilateral upper eyelids was marked with a marking pen. The lower border was placed within the eyelid crease and the upper border determined by the pinch test. Local anesthesia containing a 50:50 mixture of 2% lidocaine with 1:100,000 epinephrine and 0.75% Marcaine was injected into each upper lid for anesthesia and hemostasis. The patientwas then prepped and draped in the standard sterile fashion for oculoplastic surgery. Attention was first directed to the right upper eyelid where the previously marked area was incisedwith a #15 blade. Dissection of a skin-muscle flap was carried out using curved iris scissors and the excised tissue was placed in a wet sponge until the end of the case. The incision was then closedwith a 6-0 plain gut suture using a combination of interrupted and running throws. Attention was then turned to the left upper eyelid where the previously marked area was incised with a #15 blade. Dissection of a skin-muscle flap was carried out using curved iris scissors and the excised tissue was placed in a wet sponge until the end of the case. The incision was then closed with a 6-0 plain gut suture using a combination of interrupted and running throws. Diamond tolerated the procedure well, and was transferred to the recovery room in good condition. Infection Bundle used? N/A Attestation: Case Date: 03/27/2019 I performed this procedure without the involvement of a resident. Debbi Green MD 03/27/2019 documented in this encounter Plan of Treatment Upcoming Encounters Date Type Department Care Team (Late st Contact Info) Description 11/16/2024 1:00 PM EST Office [place] [phone] Paula Harris PA [facility] [place] [address] 01/26/2025 9:50 AM EDT Appointment Mammography/[place] [phone] Joan Deutsch, GE [facility] [place] [address] 01/26/2025 10:50 AM EDT Office Visit General Surgery at [facility] [place] [address] Joan Deutsch STRAIGHTEDGE MAN [facility] [place] [address] documented as of this encounter Procedures Procedure Name Priority Date/Time Associated Diagnosis Comments BLEPHAROPLASTY,UPPER EYELID, WITH EXCESSIVE SKIN, ANDRES (WRVU 6.81) 03/27/2019 2:23 PM EDT Dermatochalasis of both upper eyelids documented in this encounter Visit Diagnoses Not on filedocumented in this encounter Administered Medications Inactive Administered Medications - up to 3 most recent administrations Medication Order MAR Action Action Date Dose Rate Site acetaminophen (TYLENOL) tablet 1,000 mg 1,000 mg, Oral, ONCE, 1 dose, On Sat03/27/19 at 1415, Administer on arrival in Same Day Program, Day of Surgery (Day of Procedure), Routine Given 03/27/2019 2:09 PM EDT 1,000 mg lactated ringers infusion 1,000 mL, at 100 mL/hr, Intravenous, CONTINUOUS, Starting on Sat03/27/19 at 1415, Until Sat03/27/19 at 1530, Day of Surgery (Day of Procedure) New Bag 03/27/2019 2:21 PM EDT 1,000 mLs 100 mL/hr documented in this encounter Active and Recently Administered Medications Times are shown in EDT. Scheduled Medication Order 03/25/2019 03/26/2019 03/27/2019 acetaminophen (TYLENOL) tablet 1,000 mg (COMPLETED) 1,000 mg, Oral, ONCE, 1 dose, On Sat03/27/19 at 1415, Administer on arrival in Same Day Program, Day of Surgery (Day of Procedure), Routine 1409 (Given - Provid er: Bing Platt RN) Continuous Medication Order 03/25/2019 03/26/2019 03/27/2019 lactated ringers infusion (CANCELED) 1,000 mL, at 100 mL/hr, Intravenous, CONTINUOUS, Starting on Sat03/27/19 at 1415, Until Sat03/27/19 at 1530, Day of Surgery (Day of Procedure) 1421 (New Bag - Prov ider: Bing Platt RN)1441 (Anesthesia Volume Adjustment - Provider: Shaila Espinosa CRNA) PRN Medication Order 03/25/2019 03/26/2019 03/27/2019 acetaminophen (TYLENOL) tablet 650 mg 650 mg, Oral, ONCE PRN, 1 dose, Starting on Sat03/27/19 at 1503, Until Sat03/27/19 at 1730, Pain, Maximum dose of acetaminophen is 4000 mg from all sources in 24 hours., Recovery (Recovery-Hospital Unit), Routine BUpivacaine (PF) (MARCAINE) 0.75 % (7.5 mg/mL) injection (CANCELED) ONCE PRN, Starting on Sat03/27/19 at 1439, Until Sat03/27/19 at 1730, Intra-Operative (Intra-Procedure), Routine 1439 (Given - Provid er: Debbi Green MD - Comment: Mixed 1:1 w/ 2% Lidocaine w/ epi. A total of 3mL given at this time.) erythromycin (ROMYCIN) 5 mg/gram (0.5 %) ophthalmic ointment (CANCELED) ONCE PRN, Starting on Sat03/27/19 at 1443, Until Sat03/27/19 at 1730, Intra-Operative (Intra-Procedure) 1443 (Given - Provid er: Debbi Green MD - Comment: Applied to both eye incisions after surgery.) lidocaine-EPINEPHrine 2 %-1:200,000 injection (CANCELED) ONCE PRN, Starting on Sat03/27/19 at 1439, Until Sat03/27/19 at 1730, Intra-Operative (Intra-Procedure), Routine 1439 (Given - Provid er: Debbi Green MD - Comment: Mixed 1:1 w/ 0.75% bupivacaine. A total of 3mL given at this time.) povidone-iodine 5 % ophthalmic solution (CANCELED) ONCE PRN, Starting on Sat03/27/19 at 1437, Until Sat03/27/19 at 1730, Intra-Operative (Intra-Procedure), Routine 1437 (Given - Provid er: Debbi Green MD - Comment: Used to prep the eyes and face before surgery.) tetracaine (PF) (PONTOCAINE) ophthalmic solution (CANCELED) ONCE PRN, Starting on Sat03/27/19 at 1437, Until Sat03/27/19 at 1730, Intra-Operative (Intra-Procedure), Routine 1437 (Given - Provid er: Debbi Green MD - Comment: given in each eye before injecting with local.) documented in this encounter Care Teams Learning Technologist Relationship Specialty Start Date End Date Mariluz Watts MD [address] [place] [address] PCP - General 08/22/10 documented as of this encounter
--- OUTSIDE RECORDS SUMMARY | 2024-05-18 19:56 | XMS_ITS | Encounter Summary ---
Author Organization [facility] [place] [address] Care Team Providers Care Medical Imaging Specialist Name Role Phone Mariluz Watts MD Primary Care Provider [phone] Encounter Details Date Type Department Care Team (Latest Contact Info) Description 12/11/2019 10:42 AM EDT - 12/11/2019 11:59 PM EDT Hospital Encounter Mammography[place] [address] Karin Webb APRN [facility] [place] [address] History of breast cancer Discharge Disposition: Home Social History [...] Take 4 mg by mouth daily. 01/15/2023 diclofenac (VOLTAREN) 1 % GelIndications:Thumb pain, left Apply 1 g topically 4 times daily as needed. 100 g 5 12/11/2019 09/07/2022 escitalopram (Lexapro) 20 mg Tablet Take 30 mg by mouth daily. 10/07/2019 09/07/2022 ascorbic acid, vitamin C, (VITAMIN C) 500 mg Tablet, Chewable Take by mouth. magnesium 250 mg Tablet Take by mouth. 10/11/2020 ferrous sulfate 325 mg (65 mg iron) Tablet Take 25 mg by mouth daily. 09/07/2022 artificial tear (TEARS) Drops 1 drop 3 times daily as needed. 09/07/2022 multivit with calcium,iron,min (RTHFIKRELUBK-YS-DRXO- MINERALS ORAL) Take by mouth. 09/07/2022 omeprazole (PRILOSEC) [...] PM EST Office [place] [address] Paula Harris PA [facility] [place] [place] [address] 01/26/2025 9:50 AM EDT Appointment Mammography/[place] [address] Joan Deutsch APRN [facility] [place] [address] 01/26/2025 10:50 AM EDT Office Visit General Surgery at [facility] [place] [address] Joan Deutsch APRN [facility] [place] [address] documented as of this encounter Procedures Procedure Name Priority Date/Time Associated Diagnosis Comments MAMMO SCREENING CAD AND CINDY BILATERAL Routine 12/11/2019 11:36 AM EDT History of breast cancer documented in this encounter Results * Mammo Screening Cad and Cindy Bilateral (12/11/2019 11:36 AM EDT) Anatomical Region Laterality Modality Breast Bilateral Mammography Narrative 12/11/2019 11:59 AM EDT EXAMINATION: MAMMO SCREENING CAD AND CINDY BILATERAL REASON FOR EXAM: Screening. History of right breast cancer. History of left breast reduction. TECHNIQUE: CC and MLO views were obtained of both breasts. Computer aided detection was used. 3D tomosynthesis images were obtained in addition to 2D images. COMPARISON: The study is compared with prior images. FINDINGS: Breast density: There are scattered areas of fibroglandular density There are no suspicious microcalcifications, masses, or areas of distortion. There are post treatment changes in the right breast. There are post reduction mammoplasty changes in the left breast. CONCLUSION: No mammographic evidence of malignancy. RECOMMENDATION: Routine annual screening. BIRADS CATEGORY 2: BENIGN FINDINGS * ??Medical organizations agree that annual screening mammography beginning at age 40 saves the most lives. * ??The risks of screening are negligible compared to dying from breast cancer or suffering from more aggressive treatment required when detected at a later stage. * ??No woman is at low risk for breast cancer. * ??Some women, because of their family history, a genetic tendency, or certain other factors, should be screened with breast MRI along with mammograms. (The number of women who fall into this category is very small). The patient and health care provider should discuss the patient history and decide if earlier screening and breast MRI are appropriate. * ??Screening should continue as long as a woman is in good health and is expected to live 10 years or longer. * ??Screening mammography may not detect 10-15% of breast cancers.\ * ??Women should report any breast changes to a health care provider right away. Thank you for letting us participate in the care of this patient. For questions regarding this report, please contact the number below. ? Electronically signed by: Beata Narayan [facility] ([phone]), at 12/11/2019 11:59 AM Karin Webb APRN IMG MAMMO ORD ERABLES documented in this encounter Visit Diagnoses Diagnosis History of breast cancer Personal history of malignant neoplasm of breast documented in this encounter Care Teams Medical Imaging Specialist Relationship Specialty Start Date End Date Mariluz Watts MD [address] [place] [address] PCP - General 08/22/10 documented as of this encounter
--- OUTSIDE RECORDS SUMMARY | 2024-05-18 19:56 | XMS_ITS | Encounter Summary ---
[place] [address] Care Team Providers Care Asbestos Surveyor Name Role Phone Mariluz Watts MD Primary Care Provider [phone] Encounter Details Date Type Department Care Team (Late st Contact Info) Description 12/11/2019 12:40 PM EDT Office [place] [address] Joan Deutsch APRN [facility] [address] History of breast cancer Social History Tobacco [...] Progress Notes * Joan Deutsch APRN - 12/11/2019 12:40 PM EDT Diamond is a 73 y[address] Pt of Dr. Marquez who returns in surgical follow up. She had routine screening mammography performed in December 2009 with the finding of a new mass measuring approximately 2cm at9:00 in the right breast. This prompted call back imaging including mammogram and u/s which confirmed a solid, spiculated mass. U/S guided biopsy revealed IDC/DCIS. Kimi then underwent MRI for surgical planning. This revealed a second ipsilateral lesion as well as 2 lesions in close proximity in the contralateral left breast. Additional imaging and biopsy revealed multifocal right breast cancer and left breast atypical papilloma. She opted for BCT with b/l simultaneous breast reduction. Kimi was brought to the OR 03/24/10. 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 positive for carcinoma: 1 (H&E) No. with IHC (+) cells only: 0 (cells not seen by H&E, see Note*) No. negative for carcinoma: 1 (both H&E and IHC For positive nodes: Largest kristi deposit 0.2 cm Extranodal extension Absent Estrogen/Progestin receptors: Performed on blocks C2 and C11 ER immunoreactivity: Positive (see Diagnostic hanna*) ID immunoreactivity: Positive (see Diagnostic hanna*) HER2/shonda expression by FISH: Negative Kimi was returned to the OR for deep margin excision. This was negative for residual malignancy. Kimi declined chemotherapy and proceeded to whole breast xrt. She completed 5 years of arimidex. She is still bothered by her smaller than expected breast size after reduction. She has lost 30 pounds since August. She has gone back to a vegetarian diet and has cut chocolatefrom her diet. She feels good! She denies any new aches or pains, cp, sob, and headaches. On exam, well appearing and in nad. No cervical, supraclavicular or axillary adenopathy. B/L reduction mammoplasty incisions well healed. Fat necrosis in the right breast 10:00 1x2cm and left breast at 12:00 and 3:00 at areolar border approximately 1cm. No additional masses appreciated. Mammogram today: cat 2 Comprehensive Breast Program Surgery Follow Up Note armRange of motion of surgical arm complete Lymphedema present No Cosmesis-surgeon reported Cosmesis-patient reported Good Good Local or regional recurrence No Contralateral cancer present No Distant recurrence present No Date of last follow up 12/11/19 A/P: Doing well without evidence of recurrence or metastatic disease. Plan follow up in 1 year with bilateral mammogram. She will see Dr. Merlos later today. She knows to call with questions in the interim. Joan Deutsch APRN documented in this encounter Plan of Treatment Upcoming Encounters Date Type Department Care Team (Late st Contact Info) Description 11/16/2024 1:00 PM EST Office [place] [phone] Paula Harris PA [facility] [place] [address] 01/26/2025 9:50 AM EDT Appointment Mammography/[place] [phone] Kovatch, Joan L, [facility] [place] [address] 01/26/2025 10:50 AM EDT Office Visit General Surgery at [facility] [place] [address] Joan Deutsch, [facility] [place] [address] documented as of this encounter Results * Mammo Screening Cad and Irvin Bilateral (12/22/2020 1:24 PM EDT) Anatomical Region Laterality Modality Breast Bilateral Mammography Narrative 12/22/2020 5:41 PM EDT EXAMINATION: MAMMO SCREENING CAD AND IRVIN BILATERAL REASON FOR EXAM: Screening. History of right breast cancer. History of bilateral breast reduction. TECHNIQUE: CC and MLO views [...] are post reduction mammoplasty changes in the right and left breast. CONCLUSION: No mammographic evidence of [...] participate in the care of this patient. ? Electronically signed by: Beata Narayan MD, [facility] ([phone]), at 12/22/2020 5:41 PM Joan Deutsch BREED TO WEAN PRODUCTION TECHNICIAN IMG MAMMO ORDERABLE S documented in this encounter Visit Diagnoses Diagnosis History of breast cancer Personal history of malignant neoplasm of breast History of breast cancer Personal history of malignant neoplasm of breast documented in this encounter Care Teams Asbestos Surveyor Relationship Specialty Start Date End Date Mariluz Watts MD [address] [place] [address] PCP - General 08/22/10 documented as of this encounter
--- OUTSIDE RECORDS SUMMARY | 2024-05-18 19:56 | XMS_ITS | Encounter Summary ---
[place] [address] Care Team Providers Care Roller Shop Supervisor Name Role Phone Mariluz Watts MD Primary Care Provider [phone] Reason for Visit * Reason Comments Follow-up XR, bilat TKA surgic al consult Encounter Details Date Type Department Care Team (Latest Contact Info) Description 11/23/2019 9:40 AM EST Office Visit [place] [address] Shekhar Moody MD [facility] [place] [address] Primary osteoarthritis of left knee (Primary Dx); Need for prophylactic chemotherapy ; Pain in extremity, unspecified extremity Social History Tobacco Use Types Packs/Day Years [...] Sign Reading Time Taken Comments Blood Pressure 121/85 11/23/2019 9:16 AM EST Pulse 84 11/23/2019 9:16 AM EST Temperature - - Respiratory Rate - - Oxygen Saturation - - Inhaled Oxygen Concentration - - Weight 88.6 kg (195 lb 4.8 oz) 11/23/2019 9:16 A M EST measured Height 165.1 cm (5' 5) 11/23/2019 9:16 AM EST m easured Body Mass Index 32.5 11/23/2019 9:16 AM EST documented in this encounter Progress Notes * Ronny Whitehead E - 11/23/2019 9:40 AM EST Chief complaint: L knee instability Problem List Items Addressed This Visit None History of present illness: Diamond Gaming is a 73 y.o. year-old female who presents with L knee instability. She reports she does not feel stable on her knee, and that it occasionally gives out. This happens a few times a week. She does not report any keiko pain. She takes tylenol - 1000mg 3-4x/day for her foot pain, it also helps her knee as well. She has had PT in the past for other issues, but not for her knee. She was scheduled to have a L knee TKA in September 2018, but this was postponeddue to bloodwork irregularities. She has since been followed by Dr. De La Cruz with Hematology. She also notes pain in her R foot; she has an ongoing history of complications there including bunions, bone spurs, and plantar fasciatis. She does not wish for any intervention at this time, although in the past there had been discussion about a mid-foot fusion. Her main goals right now are to reestablish a stable knee so that she can continue to walk her dog and play with her granddaughter. Past medical history: Patient Active Problem List Diagnosis Date Noted ??? Dermatochalasis of both upper eyelids 02/11/2019 ??? Osteoarthritis of midfoot 05/23/2016 ??? Hallux valgus of right foot 05/23/2016 ??? Arthritis of midfoot 08/12/2013 ??? Status post hip replacement 12/22/2012 ??? Dupuytren's contracture 12/03/2012 ??? S/P tubal ligation 07/25/2012 ??? Osteoarthritis of left knee 07/25/2012 ??? 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 Aortic valve sclerosis 07/25/2012 ??? Postoperative anemia due to acute blood loss 07/25/2012 ??? S/P Left Anterior ARSLAN- 07/22/12 (Dr. Ervin) 07/22/2012 ??? Hip pain 01/25/2012 ??? S/P Right ARSLAN 03/06/2005 (Arcadio) 01/25/2012 ??? Rosacea 03/25/2011 ??? GI bleeding 03/25/2011 ??? Anxiety associated with depression ??? Benign hypermobility syndrome ??? Diverticulosis ??? Degenerative joint disease ??? Malignant neoplasm of right breast, stage 2 01/25/2010 Medications: ??? escitalopram (Lexapro) 20 mg Tablet ??? ascorbic acid, vitamin C, (VITAMIN C) 500 mg Tablet, Chewable ??? magnesium 250 mg Tablet ??? ferrous sulfate 325 mg (65 mg iron) Tablet ??? artificial tear (TEARS) Drops ??? multivit with calcium,iron,min (NLOODIJHWGDF-DF-PKAI-MINERALS ORAL) ??? omeprazole (PRILOSEC) 20 mg Capsule, Delayed Release(E.C.) ??? acetaminophen (TYLENOL) 500 mg Tablet ??? metroNIDAZOLE (METROGEL) 0.75 % Gel ??? cholecalciferol, Vitamin D3, (VITAMIN D) 1,000 unit Tab tablet ??? diaZEPam (VALIUM) 2 mg Tablet Allergies: Allergies Allergen Reactions ??? Hymenoptera Allergenic Extract Anaphylaxis Bee Stings ??? Tetracycline Anaphylaxis ??? Tetracyclines Anaphylaxis ??? Plaquenil [Hydroxychloroquine] Rash and Other (See Comments) Hallucinations ??? Gabapentin Hallucinations, suicidal thoughts and depression ??? Trazodone Rash and Other (See Comments) Unsure if hallucinations occur with this or plaquenil. 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 Enjoys reading Has a dog, which she enjoys walking Lives with her son in [facility] Social History Tobacco Use ??? Smoking status: Former Smoker Packs/day: 1.00 Years: 3.00 Pack years: 3.00 Types: Cigarettes Last attempt to quit: 09/30/1968 Years since quittin.1 ??? Smokeless tobacco: Never Used Substance Use Topics ??? Alcohol use: No Review of systems: No reported chest pain or shortness of breath No reported fevers, night sweats or chills Vital signs: Temp: -- Physical Exam: General: Well-appearing woman MSK: L knee without erythema, ecchymosis, effusion Extension: L knee with 5 degrees Flexion: L knee with 120 degrees flexion Imaging: Personal review of the patient's imaging reveals: Sclerosis on posterior aspect of L medial compartment Osteophytes present on L patella Assessment: 73 y.o. year-old female who presents for repeat re-evaluation for a L TKA. Her imaging is consistent with mild sclerosis of the posterior aspect of the medial compartment on the L knee inthe Camacho view. She does not report any pain although she notes that she experiences pain in a different way than most people (as evidenced by the fact that she took tylenol and ibuprofen alone following her prior ARSLAN). Traditionally, sensation of pain along with imaging corroboration of osteoarthritis is a major impetus for TKA; however for Ms. Gaming, it seems her main concern is maintaining stability. We discussed that she is somewhat of an atypical presentation, and reviewed the risks and benefits of surgery. At this time, she would like to proceed with a Left TKA. Plan: Left TKA Follow up: As scheduled This plan was discussed with the patient and they are in agreement. All of the patient's questions were answered. Raheem Macias I saw and evaluated the patient on the date of the primary author's note. I have reviewed and agree with the findings and the plan of care as outlined in their note, with the following additions or alterations: I saw the patient in conjunction with Ronny Whitehead, MS 4, and performed history and physical exam on her as well. The patient's primary concern today is her left knee. She also has right midfoot arthritis but at this point this is a secondary concern for her. She has daily pain in her left kneeand sensations of giving out. It is this instability that is her primary concern. Of note, she did not have significant pain in her hips when she had them replaced, and after her previous hip replacement controlled her pain without opioids. She has pain with palpation along the medial aspect of herleft knee joint and x-rays show severe posterior medial arthritis as well as patellofemoral arthritis. We discussed the fact that continued nonoperative management is certainly still an option. We also discussed total knee arthroplasty, which I think is the only reliable surgical option. I do thinkthat she likely deals with pain differently than most, and that instability and occasional pain aredue to her arthritis. We discussed total knee arthroplasty and the risks and recovery from this. She wishes to move forward with planning for this. Of note, she was previously scheduled for total knee arthroplasty and during the preoperative work-up she had iron deficiency anemia thought to be due to ulcers. She saw hematology who suggested regular ferritin monitoring, anticoagulation with apixaban, and TXA preoperatively. We will enter orders and start the process surgical planning with her. Shekhar Moody MD, MS Orthopaedic Surgery Attending documented in this encounter Plan of Treatment Upcoming Encounters Date Type Department Care Team (Late st Contact Info) Description 11/16/2024 1:00 PM EST Office Visit [place] [address] Paula Harris PA [facility] [place] [address] 01/26/2025 9:50 AM EDT Appointment Mammography/[place] [phone] Joan Deutsch APRN [facility] [place] [address] 01/26/2025 10:50 AM EDT Office Visit [place] [phone] Joan Deutsch APRN [facility] [place] [place] [address] documented as of this encounter Visit Diagnoses Diagnosis Primary osteoarthritis of left knee- Primary Primary localized osteoarthrosis, lower leg Need for prophylactic chemotherapy Need for other prophylactic chemotherapy Pain in extremity, unspecified extremity documented in this encounter Care Teams Roller Shop Supervisor Relationship Specialty Start Date End Date Mariluz Watts MD [address] [place] [address] PCP - General 08/22/10 documented as of this encounter
--- OUTSIDE RECORDS SUMMARY | 2024-05-18 19:56 | XMS_ITS | Encounter Summary ---
Author Organization [facility] [place] [address] Care Team Providers Care Associate Automation Engineer Name Role Phone Mariluz Watts MD Primary Care Provider [phone] Reason for Referral * Diagnostic Test (Routine) - Closed Specialty Diagnoses / Procedures Referred By John lyons Referred To Contact Radiology Diagnoses Osteopenia of left forearm Procedures DXA Central Spine, Hip, and/or Whole Body (Generic) Abrahan Merlos MD [facility] DR HEMATOLOGY/[place] [address] [facility] Rad Xray [address] [place] [address] [place] [address] Referral ID Status Reason Start Date Expiration Date V isits Requested Visits Authorized [id number] Closed Specialty Service Requested 12/22/2020 06/24/2022 1 1 Reason for Visit * Reason Comments Follow-up Encounter Details Date Type Department Care Team (Late st Contact Info) Description 12/22/2020 3:00 PM EDT Office Visit Hematology and Oncology at [facility] [place] [place] [address] Abrahan Merlos MD [facility] HEMATOLOGY/[place] [address] Lydia Ceja DO [facility] HEMATOLOGY[place] [address] Malignant neoplasm of right breast, stage 2; Osteopenia of left forearm Social History Tobacco Use Types Packs/Day Years [...] Sign Reading Time Taken Comments Blood Pressure 117/66 12/22/2020 2:49 PM EDT Pulse 64 12/22/2020 2:49 PM EDT Temperature 36.6 ??C (97.9 ??F) 12/22/2020 2:49 PM ED T Respiratory Rate 16 12/22/2020 2:49 PM EDT Oxygen Saturation 98% 12/22/2020 2:49 PM EDT Inhaled Oxygen Concentration - - Weight 81.7 kg (180 lb 3.2 oz) 12/22/2020 2:49 P M EDT Height 165.4 cm (5' 5.12) 12/22/2020 2:49 PM ED T Body Mass Index 29.88 12/22/2020 2:49 PM EDT documented in this encounter Progress Notes * Lydia Ceja DO - 12/22/2020 3:00 PM EDT Subjective: Patient ID: Diamond Gaming is a 75 y.o. female with Stage II breast cancer, [...] on May 13, 2015. Interval History: Diamond had been intentionally losing malina but it has fluctuated in recent days due a surgical intention on her right foot that included a bunionectomy and bone spur removal. She has a history of dupuytren's contractions since 2010 and those have remained stable. She has had some trouble in the left thumb that she thinks is due to the Arimidex. She drops a lot of things as a result. She is unableto knit or embroider. She takes tylenol 4grams of tylenol daily. Her diarrhea resolved when she started a vegetarian diet. She has urinary incontinence, she stopped her myrbetriq because of side effects, but she is now on vesicare. She is also seeing PT at [facility] and that is also helping. She takes Vitamin D at 4000 units daily as well as a calcium/magnesium pill. She does an exercise class two hours each week and she rides an exercise bicycle one hour a week. Review of Systems She denies breast pain or a palpable breast mass, a cough, shortness of breath, chest pain, nausea,vomiting, constipation, headaches, double vision, skin rashes, pain, redness, or swelling in her lower extremities, or any other sites of joint or skeletal pain. The remainder of her review of systems is negative. Objective: Physical Exam Vitals reviewed. Constitutional: Appearance: She is well-developed. Comments: Her weight is down 3.7 kg over the past year, and her BP is 105/63. HENT: Mouth/Throat: Pharynx: No oropharyngeal exudate. Neck: Comments: She has no cervical or supraclavicular adenopathy. Cardiovascular: Rate and Rhythm: Normal rate and regular rhythm. Heart sounds: Normal heart sounds. No murmur. No gallop. Pulmonary: Breath sounds: Normal breath [...] over the spine, sternum, ribs, or hips. Skin: General: Skin is warm and dry. Findings: No erythema. Today's 3-D mammograms show no suspicious microcalcifications, masses, or architectural distortion,with stable post-treatment changes on the right, and post-reduction changes on the left. The breasts are of scattered density. Today's Dexa scan shows T scores of -1.9 in the lumbar spine (down from -1.5 in November 2016), and -2.3 in the left wrist (down from -1.6 in November 2016). The most recent CBC from November 28, [...] five years of adjuvant anastrozole more than four years ago. Her lower extremity arthralgias improved with her recent weight loss. I suggested topical voltaren gel for the pain in her left basilar joint and in the right foot, she may apply it four times daily as needed. She asked me how frequently she should be getting screening colonoscopies, she had been getting them every three years, but Kye Lincoln,who did her last colonoscopy in 2016 recommended that the next one be done in 2021. Her bone density fell over the past three years, but she still has osteopenia, the loss of bone density may have been due to her recent weight loss, she is taking an adequate amount of Vitamin D, and she is getting a n adequate amount of exercise. I will see her next in followup in one year, with a dexa scan and I will coordinate that appointment with Ms. Deutsch and with her next mammograms. Diamond Gaming is aware to call with any questions. Patient was seen and discussed with Dr. Merlos. Lydia Ceja, Fellow, Hematology and Medical Oncology [facility] Pager: [phone], 12/21/20, 1:59 PM Heme-Onc Staff ?? I spoke with and examined , and I concur with Dr. Ceja's assessment. 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 After breast conserving surgery she received radiotherapy and five years of anastrozole from April 2010 through April 2015. I have continued to see her yearly. She lost about 35 pounds over the pasttwo and one-half years, and she is down 14 pounds over the past year. Her arthralgias have improvedwith the weight loss. She currently has pain in her thumbs and in her feet, and she takes 4 grams of tylenol daily for her skeletal pain. She uses vesicare and is having physical therapy for an overactive bladder. She attends an exercise class for two hours each week and she rides a bicycle. She takes Vitamin D at 4000 units daily, and she had a substantial fall in her bone density last year at the wrist and the spine. On exam she has no cervical or supraclavicular adenopathy, her chest is clear to auscultation, cardiac exam shows a regular rate and rhythm, her abdomen is soft and nontender, she has no hepatomegaly, and she has no pedal edema.?There are mastopexy scars within both breasts, but there are no masses within either breast and there is no axillary adenopathy palpable on either side.??Today's mammograms show no suspicious microcalcifications, masses, or architectural distortion, with stable post-treatment changes on the right and post-reduction changes bilaterally. The breasts are of scattered density. Kimi is doing well without evidence of breast cancer recurrence, and I will see her next in followup in one year in conjunction with Ms. Deutsch. I will repeat her Dexa scan at that time. She will contact us in the interim if she has any concerns. ?? Abrahan Merlos MD middleware systems architect in Hematology-Oncology documented in this encounter Plan of Treatment Upcoming Encounters Date Type Department Care Team (Late st Contact Info) Description 11/16/2024 1:00 PM EST Office [place] [phone] Paula Harris PA [facility] [place] [address] 01/26/2025 9:50 AM EDT Appointment Mammography/[place] [address] Joan Deutsch APRN [facility] [place] [address] 01/26/2025 10:50 AM EDT Office Visit [place] [address] Joan Deutsch APRN [facility] [address] documented as of this encounter Results * DXA Central Spine, [...] BMD measurements and plots are available in [facility] under the imaging tab. Paper copies will be sent to providers without E- access. If you have received this report without the data sheet and do not have access to [facility], please contact Radiology [facility] at [phone] Saturday thru Saturday 8am-4pm. Thank you for letting us participate in the care of this patient. ??If you are a health care provider and have any questions regarding this report, please contact the number below. ??For patients who have questions please contact the health care center manager that requested your imaging first. ? Electronically signed by: Juan Antonio Ibarra MD, [facility] ([phone]), at 12/26/2021 12:42 PM Narrative 12/26/2021 12:42 PM EDT EXAMINATION: DXA CENTRAL SPINE, HIP, AND/OR WHOLE BODY (GENERIC) CLINICAL HISTORY: ??76 years Female 76 year old woman with osteopenia at the wrist and spine (as entered by ordering provider) TECHNIQUE: Scans were acquired at the lumbar spine and left forearm using the [employer] A system. L1 and L3 were excluded from analysis due to standard deviation difference. FINDINGS: Lowest T-score at the diagnostic region of interest: T-score: -2.7, ROMÁN: One third distal radius, WHO diagnosis: osteoporosis. ......... Comparison......... Previous scan:November 2019 Total spine: Compared to the previous, 0.086 ??g/cm2 (9.9 %) increase. At [facility], least significant change for bone mineral density [...] the lumbar spine and left forearm usingthe [employer] A system. L1 and L3 were excluded from analysis due tostandard deviation difference. FINDINGS: Lowest T-score at the diagnostic region of interest: T-score: -2.7, ROMÁN: One third distal radius, WHO diagnosis:osteoporosis. ......... Comparison......... Previous scan:November 2019 Total spine: Compared to the previous, 0.086 g/cm2 (9.9 %) increase. At [facility], least significant change for bonemineral density measurements [...] BMD measurements and plots are available in [facility] the imaging tab. Paper copies will be sent to providers without [employer] access.If you have received this report without the data sheet and do not haveaccess to [employer], please contact Radiology [facility] at [phone] Saturday thruFriday 8am-4pm. Thank you for letting us participate in the care of this patient. If youare a health care provider and have any questions regarding this report,please contact the number below. For patients who have questions please contactthe health care center manager that requested your imaging first. Electronically signed by: Juan Antonio Ibarra MD, [facility]([phone]), at 12/26/2021 12:42 PM Abrahan Merlos MD IMG DEXA ORDERABLES documented in this encounter Visit Diagnoses Diagnosis Malignant neoplasm of right breast, stage 2 Osteopenia of left forearm Osteopenia of left forearm documented in this encounter Care Teams Associate Automation Engineer Relationship Specialty Start Date End Date Mariluz Watts MD [address] [place] [address] PCP - General 08/22/10 documented as of this encounter
--- OUTSIDE RECORDS SUMMARY | 2024-05-18 19:56 | XMS_ITS | Encounter Summary ---
Author Organization [facility] [place] [address] Care Team Providers Care Member Of The Legislative Council Name Role Phone Mariluz Watts MD Primary Care Provider [phone] Encounter Details Date Type Department Care Team (Latest Contact Info) Description 11/23/2019 8:38 AM EST - 11/23/2019 11:59 PM [facility] Hospital Encounter XRay at [address] [place] [address] Shekhar Moody MD [facility] [place] [address] Chronic pain of both knees Discharge Disposition: Home Social History Tobacco Use [...] daily as needed. 09/07/2022 multivit with calcium,iron,min (OVYHKJNUCMKP-[id number]-GNKG-M INERALS ORAL) Take by mouth. 09/07/2022 omeprazole [...] PM EST Office [place] [phone] Paula Harris PA [facility] [place] [address] 01/26/2025 9:50 AM EDT Appointment Mammography/[place] [phone] Joan Deutsch, 4TH GRADE TEACHER [facility] [place] [address] 01/26/2025 10:50 AM EDT Office Visit [place] [address] Joan Deutsch APRN [facility] [place] [address] documented as of this encounter Procedures Procedure Name Priority Date/Time Associated Diagnosis Comments XR KNEE STANDING ALIGNMENT AP LAT [place] SKYLINE BILAT Routine 11/23/2019 9:04 AM EST Chronic pain of both knees documented in this encounter Results * XR Knee Standing Alignment AP Lat [place] Juana Diaz Bilat (11/23/2019 9:04 AM EST) Anatomical Region Laterality Modality Bilateral Digital Radiogra phy Impressions 11/23/2019 10:54 AM EST 1. ??Progression of right knee osteoarthropathy, most severe in the patellofemoral compartment. 2. ??Similar degree of advanced left knee osteoarthropathy, most severe in the medial compartment. 3. ??Mechanical axes of the bilateral legs, as described. Thank you for letting us participate in the care of this patient. For questions regarding this report, please contact the number below. ? Narrative 11/23/2019 10:54 AM EST EXAMINATION: XR KNEE STANDING ALIGNMENT AP LAT [place] SKYLINE BILAT CLINICAL HISTORY: chronic bilat knee pain TECHNIQUE: Separate images of the pelvis, knees and feet were acquired in the AP projection with the patient standing. These images were stitched together to form a composite image of the pelvis and legs allowing for evaluation of lower extremity alignment in the weight bearing position. AP, Camacho, sunrise views of bilateral knees, lateral views of each knee. COMPARISON: Lateral knee radiographs 07/03/2018. FINDINGS: The mechanical axis of the right leg passes through the medial tibial spine. Mechanical axis of the left leg passes 2 cm medial to the tibial eminence. Incomplete evaluation of bilateral total hip arthroplasties. Right: No focal soft tissue swelling. Trace knee joint effusion. Unchanged medial compartment narrowing. Probable progression of severe narrowing of the lateral patellofemoral compartment. There is subchondral sclerosis and marginal osteophyte formation of the patellofemoral compartment. Left: Similar degree of severe medial compartment narrowing with subchondral sclerosis and marginal osteophyte formation. No focal soft tissue swelling. No knee joint effusion. Unchanged calcified 11 mm reticular body in the suprapatellar recess. Procedure Note Jesusita Nazario MD - 11/23/2019 EXAMINATION: XR KNEE STANDING ALIGNMENT AP LAT [place] SKYLINE BILAT CLINICAL HISTORY: chronic bilat knee pain TECHNIQUE: Separate images of the pelvis, knees and feet were acquired inthe AP projection with the patient standing. These images were stitched togetherto form a composite image of the pelvis and legs allowing for evaluation oflower extremity alignment in the weight bearing position. AP, Camacho, sunriseviews of bilateral knees, lateral views of each knee. COMPARISON: Lateral knee radiographs 07/03/2018. FINDINGS: The mechanical axis of the right leg passes through the medial tibialspine. Mechanical axis of the left leg passes 2 cm medial to the tibialeminence. Incomplete evaluation of bilateral total hip arthroplasties. Right: No focal soft tissue swelling. Trace knee joint effusion.Unchanged medial compartment narrowing. Probable progression of severe narrowing ofthe lateral patellofemoral compartment. There is subchondral sclerosis andmarginal osteophyte formation of the patellofemoral compartment. Left: Similar degree of severe medial compartment narrowing withsubchondral sclerosis and marginal osteophyte formation. No focal soft tissueswelling. No knee joint effusion. Unchanged calcified 11 mm reticular body in the suprapatellar recess. IMPRESSION 1. Progression of right knee osteoarthropathy, most severe in the patellofemoral compartment. 2. Similar degree of advanced left knee osteoarthropathy, most severe inthe medial compartment. 3. Mechanical axes of the bilateral legs, as described. Thank you for letting us participate in the care of this patient. Forquestions regarding this report, please contact the number below. Shekhar Moody MD IMG DX ORDERABLES documented in this encounter Visit Diagnoses Diagnosis Chronic pain of both knees documented in this encounter Care Teams Member Of The Legislative Council Relationship Specialty Start Date End Date Mariluz Watts MD [address] [place] [address] PCP - General 08/22/10 documented as of this encounter
--- OUTSIDE RECORDS SUMMARY | 2024-05-18 19:56 | XMS_ITS | Encounter Summary ---
[place] [address] Care Team Providers Care Resource Management Planner Name Role Phone Mariluz Watts MD Primary Care Provider [phone] Encounter Details Date Type Department Care Team (Late st Contact Info) Description 03/27/2019 3:07 PM EDT - 03/27/2019 4:01 PM EDT Surgery [place] [address] Debbi Green MD [facility] [place] [address] BLEPHAROPLASTY,UPPER EYELID, WITH EXCESSIVE SKIN, ANDRES (WRVU 6.81) Social History Tobacco Use Types Packs/Day Years [...] the ointment in the eye or an tcun-[id number]-kaywgaf artificial tear drop. Your bruising and swelling [...] Green immediately. She may be reached at [phone]: PLEASE DO NOT HESITATE TO CALL IF YOU ARE HAVING A PROBLEM!! There is always a doctor nuclear station operator at the eye clinic. documented in [...] daily as needed. 09/07/2022 multivit with calcium,iron,min (JFQOIKYPQFHE-HI-NNAM-M INERALS ORAL) Take by mouth. 09/07/2022 omeprazole [...] Green MD - 03/27/2019 2:09 PM EDT [facility] Patient Name: Diamond Gaming : [id number] MR#: [id number] Case Date: 03/27/2019 Surgeon: Surgeon(s) and Role: [...] PM EST Office [place] [phone] Paula Harris PA [facility] [place] [address] 01/26/2025 9:50 AM EDT Appointment Mammography/[place] [phone] Joan Deutsch APRN [facility] [place] [address] 01/26/2025 10:50 AM EDT Office Visit General Surgery at [facility], [place] [address] Joan Deutsch APRN [facility] [place] [address] documented as of this encounter Procedures Procedure Name Priority Date/Time Associated Diagnosis Comments BLEPHAROPLASTY,UPPER EYELID, WITH EXCESSIVE SKIN, ANDRES (WRVU 6.81) 03/27/2019 2:23 PM EDT Dermatochalasis of both upper eyelids documented in this encounter Visit Diagnoses Diagnosis Dermatochalasis of both upper eyelids documented in this encounter Administered Medications Inactive Administered Medications - up to 3 most recent administrations Medication Order MAR Action Action Date Dose Rate Site acetaminophen (TYLENOL) tablet 1,000 mg 1,000 mg, Oral, ONCE, 1 dose, On Sat03/27/19 at 1415, Administer on arrival in Same Day Program, Day of Surgery (Day of Procedure), Routine Given 03/27/2019 2:09 PM EDT 1,000 mg BUpivacaine (PF) (MARCAINE) 0.75 % (7.5 mg/mL) injection ONCE PRN, Starting on Sat03/27/19 at 1439, Until Sat03/27/19 at 1730, Intra-Operative (Intra-Procedure), Routine Given 03/27/2019 2:39 PM EDT 1.5 mLs erythromycin (ROMYCIN) 5 mg/gram (0.5 %) ophthalmic ointment ONCE PRN, Starting on Sat03/27/19 at 1443, Until Sat03/27/19 at 1730, Intra-Operative (Intra-Procedure) Given 03/27/2019 2:43 PM EDT 1 Tube lactated ringers infusion 1,000 mL, at 100 mL/hr, Intravenous, CONTINUOUS, Starting on Sat03/27/19 at 1415, Until Sat03/27/19 at 1530, Day of Surgery (Day of Procedure) New Bag 03/27/2019 2:21 PM EDT 1,000 mLs 100 mL/hr lidocaine-EPINEPHrine 2 %-1:200,000 injection ONCE PRN, Starting on Sat03/27/19 at 1439, Until Sat03/27/19 at 1730, Intra-Operative (Intra-Procedure), Routine Given 03/27/2019 2:39 PM EDT 1.5 mLs povidone-iodine 5 % ophthalmic solution ONCE PRN, Starting on Sat03/27/19 at 1437, Until Sat03/27/19 at 1730, Intra-Operative (Intra-Procedure), Routine Given 03/27/2019 2:37 PM EDT 60 mLs tetracaine (PF) (PONTOCAINE) ophthalmic solution ONCE PRN, Starting on Sat03/27/19 at 1437, Until Sat03/27/19 at 1730, Intra-Operative (Intra-Procedure), Routine Given 03/27/2019 2:37 PM EDT 2 drops documented in this encounter Active and Recently [...] local.) documented in this encounter Care Teams Resource Management Planner Relationship Specialty Start Date End Date Mariluz Watts MD [address] [place], [place] [address]Y [address] [place] [address] PCP - General 08/22/10 documented as of this encounter
--- OUTSIDE RECORDS SUMMARY | 2024-05-18 19:56 | XMS_ITS | Encounter Summary ---
Author Organization [facility] [place] [address] Care Team Providers Care Billing And Quality Technician Name Role Phone Mariluz Watts MD Primary Care Provider [phone] Reason for Visit * Reason Onset Date Comments Pre Procedure Call 11/23/2019 Encounter Details Date Type Department Care Team (Late st Contact Info) Description 11/23/2019 Tele[place] [address] Shekhar Moody MD [facility] DR ORTHOPAEDIC [place] [address] Pre Procedure Call Social History Tobacco Use Types Packs/Day Years [...] encounter Miscellaneous Notes * Telephone Encounter - Danyel Ambrocio - 12/08/2019 10:06 AM EDT Diamond returned phone call and reported that she will not be going forward with surgery at this time. She has lost 25 lbs and her knee is feeling better. She would like to thank Dr. Moody and his team for their efforts. * Telephone Encounter - Cleo Coyne - 11/23/2019 11:20 AM EST I called and left a message for patient to call [phone] directly and schedule surgery with Dr. moody. documented in this encounter Plan of Treatment Upcoming Encounters Date Type Department Care Team (Late st Contact Info) Description 11/16/2024 1:00 PM EST Office [place] [address] Paula Harris PA [facility] [place] [address] 01/26/2025 9:50 AM EDT Appointment Mammography/DXA at [place] [phone] Joan Deutsch [facility] [place] [address] 01/26/2025 10:50 AM EDT Office [place] [address] Joan Deutsch BOBBIN WINDER TENDER [facility] [place] [address] documented as of this encounter Visit Diagnoses Not on filedocumented in this encounter Care Teams Billing And Quality Technician Relationship Specialty Start Date End Date Mariluz Watts MD [address] [place] [address] PCP - General 08/22/10 documented as of this encounter
--- OUTSIDE RECORDS SUMMARY | 2024-05-18 19:56 | XMS_ITS | Encounter Summary ---
[place] [address] Care Team Providers Care Labor/Excavator Name Role Phone Mariluz Watts MD Primary Care Provider [phone] Reason for Visit * Reason Comments Post Op Encounter Details Date Type Department Care Team (Latest Contact Info) Description 04/09/2019 3:00 PM EDT Office Visit [place] [address] Debbi Green MD [facility] [place] [address] Dermatochalasis of both upper eyelids Social History Tobacco Use Types Packs/Day Years [...] as of this encounter Progress Notes * Debbi Green MD - 04/09/2019 3:00 PM EDT Encounter Diagnosis Name Primary? Dermatochalasis of both upper eyelids Diamond Gaming, a 73 y.o. female with the following problem(s): 1. POW#2 BUL medical bleph: doing well, expected postop appearance - good improvement in upper lid height, patient reporting improvement in visual traylor - mild asymmetry in eyelids due to more bruising/swelling OD. Expect to resolve as was symmetric inPACU - ok to stop ointment and resume normal activities - Findings and concerns discussed with Diamond and she expressed understanding. FOLLOW UP - 3 months documented in this encounter Plan of Treatment Upcoming Encounters Date Type Department Care Team (Late st Contact Info) Description 11/16/2024 1:00 PM EST Office Visit [place] [phone] Paula Harris PA [facility] [place] [address] 01/26/2025 9:50 AM EDT Appointment Mammography/[place] [address] Joan Deutsch [facility] [place] [address] 01/26/2025 10:50 AM EDT Office Visit General Surgery at [place] [phone] Joan Deutsch CLINICAL LAB SPECIALIST [facility] [place] [address] documented as of this encounter Visit Diagnoses Diagnosis Dermatochalasis of both upper eyelids documented in this encounter Care Teams Labor/Excavator Relationship Specialty Start Date End Date Mariluz Watts MD [address] [place] [address] PCP - General 08/22/10 documented as of this encounter
--- OUTSIDE RECORDS SUMMARY | 2024-05-18 19:56 | XMS_ITS | Encounter Summary ---
Author Organization [facility] Address [facility] [place] [address] Care Team Providers Care Director Of Assessing Name Role Phone Mariluz Watts MD Primary Care Provider [phone] Reason for Visit * Physical Therapy (Routine) - Closed Specialty Diagnoses / Procedures Referred By John lyons Referred To Contact Physical Therapy Diagnoses OAB (overactive bladder) Bella Keenan MD [facility] [place] [address] [facility] [address] [place] [address] Referral ID Status Reason Start Date Expiration Date V isits Requested Visits Authorized [id number] Closed Evaluate and Treat 10/11/2020 10/11/2021 12 12 Encounter Details Date Type Department Care Team (Latest Contact Info) Description 12/08/2020 11:00 AM EST Office Visit Rehab PT at [facility] [address] [place] [address] Shaila Rendon PT OAB (overactive bladder); Pelvic floor dysfunction; Benign hypermobility syndrome; Diverticulosis; Malignant neoplasm of right breast, stage 2; S/P tubal ligation; Status post right hip replacement; Status post total replacement of left hip; Primary osteoarthritis of left knee; Anxiety associated with depression Social History Tobacco Use Types Packs/Day Years [...] - Therapy - Shaila Rendon, PT - 12/08/2020 11:00 AM EST Physical Therapy Daily Treatment Note Diagnosis and Pertinent Co-morbidities affecting Plan of Care: ICD-10-CM 1. OAB (overactive bladder) N32.81 2. Pelvic floor dysfunction M62.89 3. Benign hypermobility syndrome M35.7 4. Diverticulosis K57.90 5. Malignant neoplasm of right breast, stage 2 C50.911 6. S/P tubal ligation Z98.51 7. Status post right hip replacement Z96.641 8. 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 Primary osteoarthritis of left knee M17.12 10. Anxiety associated with depression F41.8 Initial evaluation date: 11/23/2020 Visit number: 2 Referring Provider: Bella Keenan Primary Therapist: Shaila Rendon, PT Precautions: SUBJECTIVE: Diamond reports she is better. Only a couple days, once per week, with gushes that shecould not stop, which is very good. Was having one per day. Can sit and focus without worrying about going to the bathroom; not dreadful anymore. Do exercises and it is helping. 80% happier. Foot surgery a month ago, now in regular [facility] moccasin. Was able to walk around the block and stationary cycle. No longer wearing the 18 pad during the day, just at night, but continues to wear smaller pad during day. Vesicare has really helped. OBJECTIVE: Manual Therapy: []? PFM STM []? Vaginal []? rectal []? manual stretching Neuromuscular Re-education: 30 min []? SEMG biofeedback ?? [x]? Instruction in PFM contraction/Kegel with full relaxation in between []?Long hold 10 on, 10 off, using visual cue of SEMG graph []?Quick Flick, attention to full relaxation in between 3 sets of 5 reps [x]?Downtraining/relaxation: ??vc to close eyes and take deep breaths, best result following endurance exercises ?? [x]? Pelvic Floor training: [x]?Long hold 10 on, 20 off,5-10 reps 3x/day [x]? Short holds 5 on, 10 off, 5-10 reps 3x/day [x] quick flicks []? Hip RC PREs: hip abd/ER with theraband and hip add/IR with ball, in sitting, 3 sets of 5 reps [x]? Sitting with pressure on perineum feedback, PFM contraction/Kegel [x]? Sit<>stand from ball, PFM with initiation of motion in each direction [x]??? Squats, PFM contraction with eccentric lowering into squat, stopping when feeling loss of contraction and returning to stand, progressively going lower with contraction maintained [x]? Education in use of functional PFM contraction, performing a pelvic Knack during functional mobility. ? [x]? Urge suppression: [x]? Sit down [x]? Pelvic floor contraction [x]? 3 sets of 5 reps of 5 on 10 off [x]? Long hold 30 sec [x]? Quick flick x5-10 [x]? Distraction -- mental math, think about garden [x]? Deep breath and relax [x]? Perineal pressure [x]? Walk normally to toilet, once urge goes away, do not vasquez ?? Therapeutic exercise: []? Stretching []? Pelvic floor []? LB, []? LE, ?? []? Strengthening []?TrA Set, with []?[facility] TrA level []? ?? Self-care/Trainin min []? Dietary considerations []? Increase water intake by 8 oz to decrease urine concentration and bladder irritation []? Decrease caffeine consumption by 1 []? Decrease bladder irritants []? Decrease bowel irritants []? Reviewed difference in soluble and insoluble fiber []? Gluten free []? Dairy free []? FODMAP [x]? Toilet positioning with stool to elevate legs and mechanics -- not interested in stool at home [x]? sensory exploration -- is comfortable where she is at []? Bladder diary [x] recommended footwear, Merrel low hikers, for ambulation post foot surgery [x] discussed ambulation over consistent surfaces, as uneven surfaces results in changes in intraabdominal pressure and overcoming PFM control [x]? Diaphragmatic breathing -- patient is already doing yoga breathing during bladder spasms ?? 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 follow HEP as instructed above. ASSESSMENT: Diamond responded well to today's treatment. She is noting the combination of medicationand PFM exercises has resulted in decreased incontinence, however she continues to have one high volume episode per week and is unable to identify any triggers, nor is she able to stop it once it starts. Goals: MET date Short Term Therapy Goals (3 months, 02/20/2021) 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... ?? 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 demonstrate the ability to adhere to an independent home program of pelvic floor muscle exercises for continued improvements in PFM function and functional ability. ?? 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 report a 50% decrease in urinary incontinence episodes per voiding log. ?? 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 demonstrate an increase in pelvic floor muscle endurance to 7 sec for improved continence. ?? Patient to complete SEMG evaluation. ?? 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 demonstrate ability to perform PFM contraction with good quality 75% accuracy, no overflow or breath holding. ?? 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 ? MET date Intermediate Therapy Goals (6 months, 05/23/2021) 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... ?? Patient to be independent in the performance of a HEP of PFM exercises on a daily basis to increase strength and recruitment to increase continence control. ?? 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 demonstrate use of functional PFM contraction, performing a pelvic Knack to reduce by 75% or eliminate UI during functional mobility. ?? 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 report a 50% decrease in urinary incontinence episodes per voiding log. ?? Nocturia normal for the patients age 3 for restorative sleep. ?? Improvement in PFDI-20 by 20% for statistically significant improvement in functional ability . ?? 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 report reduced gush frequency to less than daily. ?? PLAN:Continue per current treatment plan progressing as indicated Total Treatment Time: 50 minutes Total Timed Code Treatment: 50 minutes Shaila Rendon PT documented in this encounter Plan of Treatment Upcoming Encounters Date Type Department Care Team (Late st Contact Info) Description 11/16/2024 1:00 PM EST Office [place] [phone] Paula Harris PA [facility] [place] [address] 01/26/2025 9:50 AM EDT Appointment Mammography/[place] [phone] Joan Deutsch APRN [facility] [place] [address] 01/26/2025 10:50 AM EDT Office [place] [phone] Joan Deutsch [facility] [address] documented as of this encounter Visit Diagnoses Diagnosis OAB (overactive bladder) Hypertonicity of bladder Pelvic floor dysfunction Pelvic muscle wasting Benign hypermobility syndrome Alex-Danlos syndrome Diverticulosis Diverticulosis of colon (without mention of hemorrhage) Malignant neoplasm of right breast, stage 2 S/P tubal ligation Tubal ligation status Status post right hip replacement Hip joint replacement by other means Status post total replacement of left hip Primary osteoarthritis of left knee Primary localized osteoarthrosis, lower leg Anxiety associated with depression Dysthymic disorder documented in this encounter Care Teams Director Of Assessing Relationship Specialty Start Date End Date Mariluz Watts MD [address] [place] [address] PCP - General 08/22/10 documented as of this encounter
--- OUTSIDE RECORDS SUMMARY | 2024-05-18 19:56 | XMS_ITS | Encounter Summary ---
[place] [address] Care Team Providers Care Varnish Thinner Name Role Phone Mariluz Watts MD Primary Care Provider [phone] Reason for Referral * Diagnostic Test (Routine) - Closed Specialty Diagnoses / Procedures Referred By Contac t Referred To Contact Radiology Diagnoses Primary osteoarthritis of right foot Procedures CT Foot wo Contrast Right (Generic) Daylin Waldrop PA [facility] [place] [address] [facility] [place] [address] Referral ID Status Reason Start Date Expiration Date V isits Requested Visits Authorized [id number] Closed Specialty Service Requested 03/10/2019 03/09/2020 1 1 Reason for Visit * Diagnostic Test (Routine) - Closed Specialty Diagnoses / Procedures Referred By Contac t Referred To Contact Radiology Diagnoses Primary osteoarthritis of right foot Procedures CT Foot wo Contrast Right (Generic) Daylin Waldrop PA [facility] [place] [address] [facility] [place] [address] Referral ID Status Reason Start Date Expiration Date V isits Requested Visits Authorized [id number] Closed Specialty Service Requested 03/10/2019 03/09/2020 1 1 Encounter Details Date Type Department Care Team (Latest Contact Info) Description 03/19/2019 8:31 AM EDT - 03/19/2019 11:59 PM EDT Hospital Encounter CT Scan at [facility] [place] [address] Shekhar Moody MD [facility] [place] [address] Primary osteoarthritis of right foot Discharge Disposition: Home Social History Tobacco Use [...] daily as needed. 09/07/2022 multivit with calcium,iron,min ([id number]-M INERALS ORAL) Take by mouth. 09/07/2022 omeprazole [...] Office [place] [phone] Paula Harris PA [facility] [place] [address] 01/26/2025 9:50 AM EDT Appointment Mammography/[place] [phone] Joan Deutsch APRN [facility] [place] [address] 01/26/2025 10:50 AM EDT Office [place] [phone] Joan Deutsch APRN [facility] [place] [address] documented as of this encounter Procedures Procedure Name Priority Date/Time Associated Diagnosis Comments CT FOOT WO CONTRAST RIGHT Routine 03/19/2019 9:00 AM EDT Primary osteoarthritis of right foot documented in this encounter Results * CT Foot wo Contrast Right (Generic) (03/19/2019 9:00 AM EDT) Anatomical Region Laterality Modality Foot Right Computed Tomogra phy Impressions 03/19/2019 9:47 AM EDT Osteoarthropathy at multiple sites most pronounced at the tarsometatarsal and naviculocuneiform joints. Thank you for letting us participate in the care of this patient. For questions regarding this report, please contact the number below. ? Narrative 03/19/2019 9:47 AM EDT EXAMINATION: CT FOOT WO CONTRAST RIGHT (GENERIC) CLINICAL HISTORY: evaluate mid foot joint for OA, also 2, 3 phalange, entered by ordering service TECHNIQUE: 0.63 mm non-contrast axial CT images of the [right mid foot and ankle were acquired. Sagittal and coronal reformats [and 3D models] were created. COMPARISON: Radiographs June 2008 FINDINGS: OSSEOUS STRUCTURES: 1. ??No acute fracture seen. 2. ??Calcaneus-a small well-corticated ossification adjacent to anterior calcaneal process, series 600 image 31 represents either remote injury or os secumdum. JOINTS: 1. ??Tibiotalar joint-Preserved joint space. Tiny marginal osteophytes. No effusion. 2. ??Subtalar joint-tiny marginal osteophytes but relative preserved joint spaces. 3. ??Talonavicular joint-small marginal osteophytes, tiny subchondral cysts and preserved joint spaces. 4. ??Navicular cuneiform joints: Prominent osteophytes, eccentric joint space narrowing, subchondral sclerosis and subchondral cysts formation. 5. ??Tarsometatarsal joints: ??diffuse eccentric joint space narrowing, vacuum phenomenon, large osteophytes, subchondral sclerosis and large number of subchondral cysts most pronounced at the 1 and 2 tarsometatarsal joints. No malalignment seen. 6. ??MTP joints- 1 MTP joint space narrowing, osteophyte formation, subchondral sclerosis and subchondral cysts. There is a bipartite medial sesamoid bone. TENDONS: No displacement MUSCLES: Normal appearance SOFT TISSUES: Grossly normal Procedure Note Marly Torres MD - 03/19/2019 EXAMINATION: CT FOOT WO CONTRAST RIGHT (GENERIC) CLINICAL HISTORY: evaluate mid foot joint for OA, also 2, 3 phalange,entered by ordering service TECHNIQUE: 0.63 mm non-contrast axial CT images of the [right mid foot andankle were acquired. Sagittal and coronal reformats [and 3D models] werecreated. COMPARISON: Radiographs June 2008 FINDINGS: OSSEOUS STRUCTURES: 1. No acute fracture seen. 2. Calcaneus-a small well-corticated ossification adjacent to anterior calcaneal process, series 600 image 31 represents either remote injury deedee secumdum. JOINTS: 1. Tibiotalar joint-Preserved joint space. Tiny marginal osteophytes.No effusion. 2. Subtalar joint-tiny marginal osteophytes but relative preservedjoint spaces. 3. Talonavicular joint-small marginal osteophytes, tiny subchondral cystsand preserved joint spaces. 4. Navicular cuneiform joints: Prominent osteophytes, eccentric jointspace narrowing, subchondral sclerosis and subchondral cysts formation. 5. Tarsometatarsal joints: diffuse eccentric joint space narrowing,vacuum phenomenon, large osteophytes, subchondral sclerosis and large number of subchondral cysts most pronounced at the 1 and 2 tarsometatarsal joints.No malalignment seen. 6. MTP joints- 1 MTP joint space narrowing, osteophyte formation,subchondral sclerosis and subchondral cysts. There is a bipartite medial sesamoidbone. TENDONS: No displacement MUSCLES: Normal appearance SOFT TISSUES: Grossly normal IMPRESSION Osteoarthropathy at multiple sites most pronounced at the tarsometatarsaland naviculocuneiform joints. Thank you for letting us participate in the care of this patient. Forquestions regarding this report, please contact the number below. Shekhar Moody MD IMG CT ORDERABLES documented in this encounter Visit Diagnoses Diagnosis Primary osteoarthritis of right foot documented in this encounter Care Teams Varnish Thinner Relationship Specialty Start Date End Date Mariluz Watts MD [address] [place] [address] PCP - General 08/22/10 documented as of this encounter
--- OUTSIDE RECORDS SUMMARY | 2024-05-18 19:56 | XMS_ITS | Encounter Summary ---
Author Organization [facility] [place] [address] Care Team Providers Care Pit Hand Name Role Phone Mariluz Watts MD Primary Care Provider [phone] Encounter Details Date Type Department Care Team (Late st Contact Info) Description 11/13/2021 Telephone [place] [address] Bella Keenan MD [facility] [place] [place] [address] Social History Tobacco Use Types Packs/Day Years [...] encounter Miscellaneous Notes * Telephone Encounter - Giovanna España - 11/13/2021 2:04 PM EST PHONE: [phone] Pt calls as she received recall letter to schedule an appointment. She has decided that she doesn'twant to schedule. I have lived with this problem for this long, I can just deal with it for another 7 years. documented in this encounter Plan of Treatment Upcoming Encounters Date Type Department Care Team (Late st Contact Info) Description 11/16/2024 1:00 PM EST Office Visit General Surgery at [place] [phone] Paula Harris PA [facility] [address] 01/26/2025 9:50 AM EDT Appointment Mammography/DXA at [place] [phone] Joan Deutsch SHIPFITTER APPRENTICE [facility] [place] [address] 01/26/2025 10:50 AM EDT Office Visit General Surgery at [place] [phone] Joan Deutsch SHIPFITTER APPRENTICE [facility] [place] [address] documented as of this encounter Visit Diagnoses Not on filedocumented in this encounter Care Teams Pit Hand Relationship Specialty Start Date End Date Mariluz Watts MD [address] [place] [address] PCP - General 08/22/10 documented as of this encounter
--- OUTSIDE RECORDS SUMMARY | 2024-05-18 19:56 | XMS_ITS | Encounter Summary ---
[place] [address] Care Team Providers Care Journeyman Electrician Name Role Phone Mariluz Watts MD Primary Care Provider [phone] Encounter Details Date Type Department Care Team (Late st Contact Info) Description 05/21/2019 Telephone Hematology [place] [phone] Maricarmen Martins, RN Social History Tobacco Use Types Packs/Day [...] encounter Miscellaneous Notes * Telephone Encounter - Maricarmen Martins RN - 05/21/2019 9:27 AM EDT TC to patient. Detailed message left stating requesting patient call back to clarify what labs she is referring. No recent labs are reported in [facility]. Contact information provided. Maricarmen Martins MSN RN ===View-only below this line=== ----- Message ----- From: Chucky Natalya Radha Sent: 05/19/2019 2:22 PM EDT To: Laisha Grady, RN, Maricarmen Martins RN Subject: Dorothy PT wants lab results Anne-Marie pang, PT said someone spoke with her today. She is still waiting on lab results from [facility] in [place] that were drawn. Would you mind giving her a call at home at [phone]? Thanks for your time, December...again documented in this encounter Plan of Treatment Upcoming Encounters Date Type Department Care Team (Late st Contact Info) Description 11/16/2024 1:00 PM EST Office [place] [address] Paula Harris PA [facility] [place] [address] 01/26/2025 9:50 AM EDT Appointment Mammography/[place] [address] Joan Deutsch [facility] [place] [address] 01/26/2025 10:50 AM EDT Office [place] [phone] Joan Deutsch WORK STUDY STUDENT [facility] [place] [address] documented as of this encounter Visit Diagnoses Not on filedocumented in this encounter Care Teams Journeyman Electrician Relationship Specialty Start Date End Date Mariluz Watts MD [address] [place] [address] [address] [place] [address] PCP - General 08/22/10 documented as of this encounter
--- OUTSIDE RECORDS SUMMARY | 2024-05-18 19:56 | XMS_ITS | Encounter Summary ---
[place] [address] Care Team Providers Care Lap Maker Name Role Phone Mariluz Watts MD Primary Care Provider [phone] Encounter Details Date Type Department Care Team (Late st Contact Info) Description 12/22/2020 2:20 PM EDT Office [place] [address] Joan Deutsch APRN [facility] [place] [address] History of breast cancer; Encounter for screening mammogram for breast cancer Social History Tobacco Use Types [...] Progress Notes * Joan Deutsch APRN - 12/22/2020 2:20 PM EDT Diamond is a 75 y.o[address] Pt of Dr. 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 positive for carcinoma: 1 (H&E) No. with IHC (+) cells only: 0 (cells not seen by H&E, see Note*) No. negative for carcinoma: 1 (both H&E and IHC For positive nodes: Largest kristi deposit 0.2 cm Extranodal extension Absent Estrogen/Progestin receptors: Performed on blocks C2 and C11 ER immunoreactivity: Positive (see Diagnostic hanna*) [place] immunoreactivity: Positive (see Diagnostic hanna*) HER2/shonda expression by FISH: Negative Kimi was returned to the OR for deep margin excision. This was negative for residual malignancy. Kimi declined chemotherapy and proceeded to whole breast xrt. She completed 5 years of arimidex. She is still bothered by her smaller than expected breast size after reduction. She has lost 30 pounds, she gained some back after a foot surgery. She is working to lose again. Nochanges in her medical history. She denies any new aches or pains, [...] present No Date of last follow up 12/22/20 A/P: Doing well without evidence of recurrence [...] PM EST Office [place] [address] Paula Harris PA [facility] [place] [address] 01/26/2025 9:50 AM EDT Appointment Mammography/[place] [address] Joan Deutsch APRN [facility] GENER[place] [address] 01/26/2025 10:50 AM EDT Office Visit General Surgery at [facility] [place] [address] Joan Deutsch APRN [facility] GENER[place] [address] documented as of this encounter Results * [...] who have questions please contact the health insurance healthcare representative that requested your imaging first. ? Joan Deutsch PADDLE DYEING MACHINE OPERATOR IMG MAMMO ORDERABLE S documented in this encounter Visit Diagnoses Diagnosis History of breast cancer Personal history of malignant neoplasm of breast Encounter for screening mammogram for breast cancer History of breast cancer Personal history of malignant neoplasm of breast Encounter for screening mammogram for breast cancer documented in this encounter Care Teams Lap Maker Relationship Specialty Start Date End Date Mariluz Watts MD [address] [place] [address] PCP - General 08/22/10 documented as of this encounter
--- OUTSIDE RECORDS SUMMARY | 2024-05-18 19:56 | XMS_ITS | Encounter Summary ---
[place] [address] Care Team Providers Care Motor And Controls Tester Name Role Phone Mariluz Watts MD Primary Care Provider Reason for Visit * Reason Comments Follow-up discuss right foot C T scan Encounter Details Date Type Department Care Team (Late st Contact Info) Description 05/11/2019 9:00 AM EDT Office [place] [address] Shekhar Moody MD [facility] [place] [address] Arthritis of midfoot (Primary Dx) Social History Tobacco Use Types Packs/Day Years [...] Sign Reading Time Taken Comments Blood Pressure 152/81 05/11/2019 8:45 AM EDT Pulse 75 05/11/2019 8:45 AM EDT Temperature - - Respiratory Rate - - Oxygen Saturation - - Inhaled Oxygen Concentration - - Weight - - Height - - Body Mass Index - - documented in this encounter Progress Notes * Shekhar Moody MD - 05/11/2019 9:00 AM EDT Chief complaint: Problem List Items Addressed This Visit Arthritis of midfoot History of present illness: Diamond Gaming is a 73 y.o. year-old female here in follow-up for her right foot. She is undergone a CT scan, the results of which are below. She continues to have significant discomfort in her right midfoot. She also feels unstable and unsteady on this foot. She canceled her previous total knee arthroplasty because of anemia which has been followed by Dr. De La Cruz. She had recent ferritin levels taken and is planning on following up by phone with Dr. Riley. Past medical history: Patient Active Problem List [...] right breast, stage 2 01/25/2010 Medications: ??? artificial tear (TEARS) Drops ??? multivit with calcium,iron,min (EEWPXKNELPAW-TE-PVRN-MINERALS ORAL) ??? omeprazole (PRILOSEC) 20 mg Capsule, Delayed Release(E.C.) ??? DULoxetine (CYMBALTA) 60 mg Capsule, Delayed Release(E.C.) ??? acetaminophen (TYLENOL) 500 mg Tablet ??? metroNIDAZOLE (METROGEL) 0.75 % Gel ??? diaZEPam (VALIUM) 2 mg Tablet ??? cholecalciferol, Vitamin D3, (VITAMIN D) 1,000 unit Tab tablet Allergies: Allergies Allergen Reactions ??? Hymenoptera Allergenic Extract Anaphylaxis Bee Stings ??? Tetracycline Anaphylaxis ??? Tetracyclines Anaphylaxis ??? Plaquenil [Hydroxychloroquine] Rash and Other (See Comments) Hallucinations ??? Trazodone Rash and Other (See Comments) Unsure if hallucinations occur with this or plaquenil. Social history: Social History Tobacco Use ??? Smoking status: Former Smoker Packs/day: 1.00 Years: 3.00 Pack years: 3.00 Types: Cigarettes Last attempt to quit: 09/30/1968 Years since quittin.6 ??? Smokeless tobacco: Never Used Substance Use Topics ??? Alcohol use: No Review of systems: No chest pain or shortness of breath No fevers, night sweats or chills Vital signs: Temp: -- Physical Exam: No apparent distress. Examination of the right foot reveals prominence over the second and third tarsometatarsal joints. She also has a prominence over her most medial and navicular cuneiform joint. This is the most painful area for her. Her skin is intact. Her foot is warm and well-perfused. Imaging: Personal review of the patient's imaging reveals: CT scan shows degenerative arthritis of her midfoot, worse at the articulation between the navicular and the medial cuneiform and at the second and third third tarsometatarsal joints. Assessment: 73 y.o. year-old female right midfoot arthritis Plan: We discussed the fact that I think that fusion of her first second and third tarsometatarsal joints as well as fusion of her navicular cuneiform joints at the best chance of helping with her midfoot pain given the degenerative changes we see on her CT scan today. We discussed with that surgery would entail and the recovery from it. At this point, she thinks this is a big enough problem thatshe would like to pursue surgery. We will place orders and plan on seeing her in a preoperative appointment. I would like her to see Dr. Olivas and at least check in with Dr. De La Cruz on her ferritin levels. Follow up: For preop This plan was discussed with the patient and they are in agreement. All of the patient's questions were answered. The above dictation was made with voice recognition software documented in this encounter Plan of Treatment Upcoming Encounters Date Type Department Care Team (Late st Contact Info) Description 11/16/2024 1:00 PM EST Office [place] [address] Paula Harris PA [facility] [place] [address] 01/26/2025 9:50 AM EDT Appointment Mammography/[place] [address] Joan Deutsch CLINICAL LABORATORY SERVICE TEACHER [facility] [place] [address] 01/26/2025 10:50 AM EDT Office [place] [address] Joan Deutsch CLINICAL LABORATORY SERVICE TEACHER [facility] [place] [address] documented as of this encounter Visit Diagnoses Diagnosis Arthritis of midfoot- Primary Unspecified arthropathy, ankle and foot documented in this encounter Care Teams Motor And Controls Tester Relationship Specialty Start Date End Date Mariluz Watts MD [address] [place] [address] PCP - General 08/22/10 documented as of this encounter
--- OUTSIDE RECORDS SUMMARY | 2024-05-18 19:56 | XMS_ITS | Encounter Summary ---
Author Organization [facility] [place] [address] Care Team Providers Care Crime Lab Analyst Name Role Phone Mariluz Watts MD Primary Care Provider [phone] Encounter Details Date Type Department Care Team (Latest Contact Info) Description 12/22/2020 12:47 PM EDT - 12/22/2020 11:59 PM EDT Hospital Encounter Mammography/[place] [address] Joan Deutsch, ROENTGENOLOGIST [facility] [place] [address] History of breast cancer Discharge Disposition: Home [...] Take 4 mg by mouth daily. 01/15/2023 JELRIRZ-[id number]-ZKVI ORAL Take 1 caplet by mouth daily. 09/07/2022 solifenacin (VESICARE) 10 mg Tablet Take 1 tablet by mouth daily. 90 tablet 3 10/11/2020 07/09/2021 diclofenac (VOLTAREN) 1 % GelIndications:Thumb pain, left [...] daily as needed. 09/07/2022 multivit with calcium,iron,min (BSHCKVJVQSUR-YZ-GTUL- MINERALS ORAL) Take by mouth. 09/07/2022 acetaminophen [...] PM EST Office [place] [address] Paula Harris PA [facility] [place] [place] [address] 01/26/2025 9:50 AM EDT Appointment Mammography/[place] [address] Joan Deutsch APRN [facility] [place] [address] 01/26/2025 10:50 AM EDT Office [place] [address] Joan Deutsch, ROENTGENOLOGIST [facility] [place] [place] [address] documented as of this encounter Procedures Procedure Name Priority Date/Time Associated Diagnosis Comments MAMMO SCREENING CAD AND CINDY BILATERAL Routine 12/22/2020 1:24 PM EDT History of breast cancer documented in this encounter Results * Mammo Screening Cad and Cindy Bilateral (12/22/2020 1:24 PM EDT) Anatomical Region Laterality Modality Breast Bilateral Mammography Narrative 12/22/2020 5:41 PM EDT EXAMINATION: MAMMO SCREENING CAD AND CINDY [...] ? Electronically signed by: Beata Narayan MD, [facility] ([phone]), at 12/22/2020 5:41 PM Joan Deutsch ROENTGENOLOGIST IMG MAMMO ORDERABLE S documented in this encounter Visit Diagnoses Diagnosis History of breast cancer Personal history of malignant neoplasm of breast documented in this encounter Care Teams Crime Lab Analyst Relationship Specialty Start Date End Date Mariluz Watts MD [address] [place] [address] PCP - General 08/22/10 documented as of this encounter
--- OUTSIDE RECORDS SUMMARY | 2024-05-18 19:56 | XMS_ITS | Encounter Summary ---
Author Organization [facility] Address [facility] [place] [address] Care Team Providers Care Resource Forester Name Role Phone Mariluz Watts MD Primary Care Provider [phone] Reason for Referral * Physical Therapy (Routine) - Closed Specialty Diagnoses / Procedures Referred By Contanthony t Referred To Contact Physical Therapy Diagnoses OAB (overactive bladder) Bella Keenan MD [facility] [place] [address] [facility] [address] [place] [address] Referral ID Status Reason Start Date Expiration Date V isits Requested Visits Authorized [id number] Closed Evaluate and Treat 10/11/2020 10/11/2021 12 12 Reason for Visit * Consultation (Routine) - Closed Specialty Diagnoses / Procedures Referred By Contac t Referred To Contact Urology Diagnoses Other specified disorders of bladder BLADDER IRRITABILITY *Female Provider* Mariluz Watts MD [address] [place] [address] [address] [place] [address] [facility] [place] [address] Referral ID Status Reason Start Date Expiration Date V isits Requested Visits Authorized [id number] Closed Consult, Test & Treat 07/29/2020 07/29/2021 1 1 Encounter Details Date Type Department Care Team (Late st Contact Info) Description 10/11/2020 3:40 PM EST Office [place] [address] Bella Keenan MD [facility] [place] [address] OAB (overactive bladder) Social History Tobacco Use Types Packs/Day Years [...] Sign Reading Time Taken Comments Blood Pressure 117/67 10/11/2020 3:45 PM EST Pulse 80 10/11/2020 3:45 PM EST Temperature - - Respiratory Rate - - Oxygen Saturation - - Inhaled Oxygen Concentration - - Weight - - Height - - Body Mass Index - - documented in this encounter Patient Instructions * Patient Instructions* Bella Keenan MD - 10/11/2020 3:40 PM EST The patient was advised that she has an overactive bladder (OAB) which is a symptom complex of frequency, urgency +/- urgency incontinence. She was advised that she may choose not to treat this but that if she is bothered by her symptoms there are a variety of treatments. Many patients may require more than one treatment. She may decide at any time to stop being treated. If she makes a decision not to treat her OAB her health will not be impacted although the OAB may impact her quality of life. I instructed her to do behavioural changes including: Drink 60 - 64 oz of fluid daily - at least 1/2 of this should be water. Stay away from coffee, tea,kellie, sports drinks and spicy or acidy foods. Timed void - void at least every 2 hr during the day, even if you don't need to go Double void - void - then sit for an additional 30 - 60 seconds and see if you can void some more. Go to PT to learn better pelvic muscle exercises. Urge suppression techniques which are outlined below can be done once you can do a good pelvic muscle contraction. Once you are doing these behavioural therapies if you are not sufficiently improved then we should consider putting your on a drug for your bladder, this would most likely be an anticholinergic. You can not take an anticholinergic if you have narrow angle glaucoma, impaired emptying of your stomachor incomplete bladder emptying. The main side effects of anticholinergics are dry mouth and constipation. An alternative drug for OAB is a beta 3 agonist (mirabegron). This drug can increase blood pressureslightly and can not be given to people with high blood pressure that is not being treated. Since your BP went up you can't take this. Return to clinic - 3 months. See instructions below for further behavioral changes- including urge suppression techniques. CHANGES YOU CAN MAKE TO IMPROVE BLADDER PROBLEMS CONTROLLING YOUR BLADDER URGES The [employer] OAB Clinical Care [address] For more information on better bladder control visit: [email or web address] People with overactive bladder (OAB) may experience ???urgency.?? Signs of urgency are: ??? Needing to urinate frequently ??? Waking up in the night to go to the bathroom ??? Bladder leaks The ???urge?? to urinate is normal and happens when your bladder is getting full. ???Urgency?? is a sudden, strong need to urinate that is difficult, or sometimes even impossible, to put off. Bladder urges come in waves. First they start. Then they grow stronger until they peak. Eventually, they subside. Most people with OAB respond to these urges by running to the bathroom. However, doing this can actually make things worse. It increases pressure in your bladder and causes urgency. In the end, rushing makes it more likely that you???ll lose control and have a bladder leak. There are a number of ways to try to reduce the sense of urgency. They can help you take control of your bladder, increase the amount of urine your bladder can hold, and reduce bladder leaks. The following tips are meant to help you cut down on your number of bathroom visits, and give you more control over your bladderand your life. When the urge strikes, don???t vasquez to the bathroom. Instead: ??? Stop and stay still. Sit down if you can. ??? Squeeze your pelvic floor muscles quickly (3-5 times). Keep trying until the urgency gets smaller or you have it under control. ??? Relax the rest of your body. Take a deep breath. ??? Concentrate on stopping the urge. ??? Wait until the urge goes away. ??? Then walk to the bathroom at a normal pace. Other Ways to Reduce Your Bladder Urgency: ??? Try relaxation techniques o Sit comfortably. Close your eyes. o Relax your muscles. Begin with your feet and work your way up your body. o Take slow, deep breaths in and out. Concentrate on the movement of your chest. CONTROLLING YOUR BLADDER URGES ??? Try to get your mind off of your bladder by focusing on something else, such as: o A nonphysical task. Try reading, handwork, balancing your checkbook, a puzzle, playing a game on an iPad or computer, or making a ???to-do?? or grocery list. o A mind task. Challenge yourself to count backwards from 100 by 7s. ??? Self-affirmations. Repeat a phrase that reminds you that you are in control: o ???I can wait.?? o ???I am in control, not my bladder.?? Delayed Voiding Once you feel confident that you can control your bladder urges, it???s time to take the next step to strengthen your bladder control. To do this, follow these simple steps: 1. Instead of walking to the bathroom right after you control the urge, try waiting for 5 minutes before going instead. 2. Once you are comfortable with waiting 5 minutes, try waiting for 10 minutes. 3. If you find that you are urinating more than 8 times during the day, continue increasing the amount of time you wait. Eventually you will get on a more manageable bathroom schedule (every 3-4 hours during the day). Urge Control During the Night These urge-control tips work at night too. When you wake up with a bladder urge, try using the tipsthat work best for you for 2 minutes. If they work, great! You can go back to sleep. If the urge does not go away after 2 minutes, go ahead to the bathroom and then return to sleep. How long does it take for the urge-control approaches to work? Changes to your bladder control will be gradual. It will take time, practice, and patience to buildyour skills. Most people notice some positive changes within 2 weeks, but it may take 3 months or more to see the full effects of your efforts. The [facility] Overactive Bladder Pathway is supported by educational grants from [employer], [employer] and [employer]. This is a list of drugs you could take for your overactive bladder. These are anticholinergics and may give you constipation and dry mouth. Oxybutynin 5 mg three times per day - generic Oxybutynin ex release (ditropan XL) 10 mg daily Gelnique (oxybutynin gel) daily Oxytrol (oxybutynin patch) 2 times per week Sanctura - daily Vesicare - daily Detrol LA -daily Toviaz - daily I am prescribing vesicare as it appears to be covered. Call us and let us know what is covered. documented in this encounter Progress Notes * Bella Keenan MD - 10/11/2020 3:40 PM EST HPI Urinary Incontinence New Patient Workup - Female Reason for Visit: This is a female 74 y.o. seen at the request of Mariluz Watts MD with incontinence times 5 years. Notes from Mariluz Watts MD on file have been received and reviewed. She had septicemia in 2014 with an infected stone. She had 2 surgical procedures for her stones. She did PT last fall for [facility] - she did the exercises. Unclear if it helped. She has cut out coffee. She lost 60 lb She was put on mirabegron but had high BP so stopped it. HPI Features of incontinence: She has bladder spasms The patient does not leak with the following stress maneuvers: coughing , laughing, sneezing, lifting, straining, getting out of a chair and bending over. The patient has features of urge including: leakage on the way to the toilet and when full. She does not leak without warning, around water and in cold weather. Pad use: Type: pads - poise day, poise super long 6 night. Number: 1 - 9 per day; 1 - 4 per night. Frequency: Every 3 hour(s). Nocturia: x 3. - bed 9 - 9:30, reads for an hour, up at 5:30. Nocturnal enuresis: Yes. - once per week - 10 days- associated with 3 pad nights. Was a bed wetter in child [employer] till age 13 Usual Fluid Intake: Type of Fluid Quantity Consumed Unit Coffee - decaf 1 cups per day Tea 0 - 1 cups per day Coke 0 cans per day Juice 0 glasses per day Water 1.5 qt glasses per day Last UTI: Last infection 18 months ago. Generally had spasms first Has had some neg specimens. Bowel Problems: Normal - daily - soft and formed Gyne: G 1 P 1 # 1 Menopause: age 54 , some hot flashes HRT: No. Review of Systems: General Health: very good, lost 60 lb in the last year DIRECTOR TRAFFIC AND PLANNING - No headaches or loss of consciousness. RS - No cough or breathing difficulties. CVS No chest pain or PANTOJA. No claudication. GI - Normal appetite and bowels. MUSCULOSKELETAL: lt hip pain tubal ligation 1993 Past Medical History: Diagnosis Date ??? Anxiety [...] hypermobility syndrome ??? GI bleeding 03/25/2011 ??? residential current use of opiate analgesic ??? 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 Oriented to Person, place and time. Healthy appearance. Color normal. No significant skin lesions. Abdomen: The abdomen is soft, non-tender, without masses or organomegaly. There is no hepatosplenomegaly. The bladder is not palpable. There is no CV angle tenderness. Pelvic: The external genitalia are normal with normal hair distribution and no lesions. She is atrophic.The meatus is in a normal location with a normal configuration. There is mobility of the bladder neck. The urethra is not tender. There are no urethral masses. The patient does not leak in the supine position with valsalva and with coughing. There is a Gr. 0 cystocele and a Gr. 1 rectocele. There are no pelvic masses. The patient can Kegel somewhat effectively but needs coaching to not contract her legs/gluts The uterus and adenexa are normal. The uterus is well supported. Rectal: The anus and perineum are normal. Rectal sphincter tone is normal. There are no rectal masses. PVR: 42 - 88 cc measured in the supine position with the bladder scanner shortly after the patient had voided. U/A: negative for RBC, WBC and Nitrates. Impression: Pt with oab - unable to take beta 3 due to hypertension Plan: Advised behaviour changes - including more PT Trial on antichol Consideration of botox RTC 6 mon Review of Systems Physical Exam documented in this encounter Plan of Treatment Upcoming Encounters Date Type Department Care Team (Late st Contact Info) Description 11/16/2024 1:00 PM EST Office Visit [place] [address] Paula Harris, [place] [facility] [place] [address] 01/26/2025 9:50 AM EDT Appointment Mammography/DXA at [place] [phone] Joan Deutsch, [facility] [address] 01/26/2025 10:50 AM EDT Office Visit [place] [phone] Joan Deutsch, RURAL MAIL CONTRACTOR [facility] [place] [address] Scheduled Referrals Name Type Priority Associated Diagnoses Orde r Schedule Referral to Physical Therapy Outpatient Referral Routine OAB (overactive bladder) Ordered: 10/11/2020 documented as of this encounter Visit Diagnoses Diagnosis OAB (overactive bladder) Hypertonicity of bladder documented in this encounter Care Teams Resource Forester Relationship Specialty Start Date End Date Mariluz Watts MD [address] [place] [address] PCP - General 08/22/10 documented as of this encounter
--- OUTSIDE RECORDS SUMMARY | 2024-05-18 19:56 | XMS_ITS | Encounter Summary ---
[place] [address] Care Team Providers Care Inspector Mechanical Name Role Phone Mariluz Watts MD Primary Care Provider [phone] Reason for Visit * Reason Onset Date Comments Bumped Appointment 04/06/2019 Encounter Details Date Type Department Care Team (Late st Contact Info) Description 04/06/2019 Telephone [place] [address] Shekhar Moody MD [facility] DR [place] [address] Bumped Appointment Social History Tobacco Use Types Packs/Day Years [...] encounter Miscellaneous Notes * Telephone Encounter - Shae Wills - 04/06/2019 2:13 PM EDT Patient did not respond, have left her scheduled for 05/11. * Telephone Encounter - Tania Angel - 04/06/2019 8:13 AM EDT LM#[address] Moody will be available today 04/06/19 in the afternoon. Please schedule her into any open held slot today or find next available. documented in this encounter Plan of Treatment Upcoming Encounters Date Type Department Care Team (Late st Contact Info) Description 11/16/2024 1:00 PM EST Office Visit General Surgery at [place] [phone] Paula Harris PA [facility] [place] [address] 01/26/2025 9:50 AM EDT Appointment Mammography[place] [address] Joan Deutsch [facility] [place] [address] 01/26/2025 10:50 AM EDT Office Visit General Surgery at [place] [phone] Joan Deutsch WEB SITE ADMINISTRATOR [facility] [place] [address] documented as of this encounter Visit Diagnoses Not on filedocumented in this encounter Care Teams Inspector Mechanical Relationship Specialty Start Date End Date Mariluz Watts MD [address] [facility] [facility] [address] [place] [address] PCP - General 08/22/10 documented as of this encounter
--- OUTSIDE RECORDS SUMMARY | 2024-05-18 19:56 | XMS_ITS | Encounter Summary ---
[place] [address] Care Team Providers Care Senior Architectural Designer Name Role Phone Mariluz Watts MD Primary Care Provider [phone] Encounter Details Date Type Department Care Team (Late st Contact Info) Description 12/11/2019 1:30 PM EDT Office Visit H[place]ology [place] [address] Abrahan Merlos MD [facility] HEMATOLOGY/[place] [address] Thumb pain, left; Malignant neoplasm of right breast, stage 2 [...] Sign Reading Time Taken Comments Blood Pressure 105/63 12/11/2019 1:24 PM EDT Pulse 76 12/11/2019 1:24 PM EDT Temperature 36.4 ??C (97.5 ??F) 12/11/2019 1:24 PM ED T Respiratory Rate 18 12/11/2019 1:24 PM EDT Oxygen Saturation 98% 12/11/2019 1:24 PM EDT Inhaled Oxygen Concentration - - Weight 88 kg (194 lb) 12/11/2019 1:20 PM EDT Height 165 cm (5' 4.96) 12/11/2019 1:22 PM EDT Body Mass Index 32.32 12/11/2019 1:20 PM EDT documented in this encounter Progress Notes * Abrahan Merlos MD - 12/11/2019 1:30 PM EDT Subjective: Patient ID: Diamond Gaming is a 73 y.o. female with Stage II breast cancer, [...] on May 13, 2015. Interval History: Diamond lost about 25 pounds, her left knee and right foot pain have improved, andemmett has decided against having surgery at either site. She currently has pain at the basilar joint of the left thumb, her left knee is unstable but it does not hurt, and she has pain in the left hip.She uses tylenol, but she does not tolerate NSAIAs. Her diarrhea resolved when she started a vegetarian diet. She has chronic tinnitus without headaches. She has urinary incontinence, she stopped hermyrbetriq because of side effects, and she does not wish to go back to Urology. She takes Vitamin Jasper 3000 units daily as well as a calcium/magnesium pill, she does an exercise glass two hours each week and she rides [...] systems is negative. Objective: Physical Exam Vitals signs reviewed. Constitutional: Appearance: She is well-developed. Comments: Her weight is down 3.7 kg over the past year, and her BP is 105/63. HENT: Mouth/Throat: Pharynx: No oropharyngeal exudate. Neck: Musculoskeletal: Neck supple. Comments: She has no cervical or supraclavicular [...] abdominal tenderness. There is no guarding. Musculoskeletal: Comments: She has no pain on percussion [...] the next one be done in 2021. I told her thanDr. Watts should weigh in. Her bone density fell over the past three years, but she still has osteopenia, the loss of bone density may have been due to her recent weight loss, she is taking an adequate amount of Vitamin D, and she is getting an adequate amount of exercise. I will see her next in followup in one year, and I will coordinate that appointment with Ms. Deutsch and with her next mammograms. Abrahan Merlos MD cold molding press operator in Hematology-Oncology documented in this encounter Plan of Treatment Upcoming Encounters Date Type Department Care Team (Late st Contact Info) Description 11/16/2024 1:00 PM EST Office Visit General Surgery at [place] [phone] Paula Harris, [place] [facility] [place] [address] 01/26/2025 9:50 AM EDT Appointment Mammography[place] [address] Joan Deutsch, [place] [facility] [place] [address] 01/26/2025 10:50 AM EDT Office Visit General Surgery at [place] [phone] Joan Deutsch, [place] [facility] [place] [address] documented as of this encounter Visit Diagnoses Diagnosis Thumb pain, left Malignant neoplasm of right breast, stage 2 documented in this encounter Care Teams Senior Architectural Designer Relationship Specialty Start Date End Date Mariluz Watts MD [address] [place] [address] PCP - General 08/22/10 documented as of this encounter
--- OUTSIDE RECORDS SUMMARY | 2024-05-18 19:56 | XMS_ITS | Encounter Summary ---
Author Organization [facility] [place] [address] Care Team Providers Care Gas Utility Worker Name Role Phone Mariluz Watts MD Primary Care Provider Reason for Visit * Reason Comments Follow-up Encounter Details Date Type Department Care Team (Late st Contact Info) Description 03/12/2019 9:15 AM EDT Office Visit H[place]ology [place] [address] Charity De La Cruz MD [facility] [address] HEMATOLOGY [place] [address] Pancho Singleton MD [facility] HEMATOLOGY/[place] [address] Iron deficiency anemia, unspecified iron deficiency anemia type Social History Tobacco Use Types Packs/Day Years [...] Sign Reading Time Taken Comments Blood Pressure 140/92 03/12/2019 9:08 AM EDT Pulse 71 03/12/2019 9:08 AM EDT Temperature 36.8 ??C (98.2 ??F) 03/12/2019 9:08 AM ED T Respiratory Rate 19 03/12/2019 9:08 AM EDT Oxygen Saturation 98% 03/12/2019 9:08 AM EDT Inhaled Oxygen Concentration - - Weight 94.3 kg (208 lb) 03/12/2019 9:08 AM EDT Height 165.4 cm (5' 5.13) 03/12/2019 9:08 AM ED T Body Mass Index 34.47 03/12/2019 9:08 AM EDT documented in this encounter Progress Notes * Charity De La Cruz MD - 03/12/2019 9:15 AM EDT Images from the original note were not included. [facility] [place] [address] HEMOSTASIS FOLLOW UP DATE OF VISIT 03/12/2019 Patient Diamond Gaming 1945 PRIMARY CARE PHYSICIAN Mariluz Watts MD REASON FOR CONSULTATION Bleeding diathesis and iron deficiency anemia HISTORY OF THE PRESENT ILLNESS Diamond Gaming is a 73 y.o. woman with stage II breast cancer status post partial mastectomy and radiation, diverticulosis, kidney stones and interstitial cystitis who is seen in follow up at her request for iron deficiency anemia. I originally saw her in September [address] Valladares for recommendations for hemostasis support for a left TKA surgery. As part of the pre-op evaluation, iron deficiency anemia was identified and we initiated IV iron treatments and a referral to GI for endoscopy. An upper endoscopy showed a hiatus hernia and Oli ulcers. She had been taking ibuprofen for analgesia and that has been stopped. After completion of the iron therapy her labs showed resolution of anemia and worship of iron stores (H/H 14.2/45 and ferritin 110). She was recommended to continue with oral iron supplementationto keep up with slow blood loss from Oli ulcers. 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 INTERVAL HISTORY Kimi comes in today with some concerns about recent blood work ordered by Dr. Watts. She is off her ibuprofen and is struggling with pain control for widespread aches and pains. Interestingly, her knee isn't bothering her much and she's elected to defer the TKA until next spring. She's worriedabout a recent blood (01-30-2019) test showing a serum iron level of 40 (ref interval, 50 - 175 ug/mL). A recent Hb level is 13.9 g/dL and MCV is 85.5 fL. There was no ferritin level provided. She is taking a multivitamin with iron but no dedicated iron supplement as she is wary of the GI side effects. She does not feel particularly better after improvement of her Hb from 9.9 but has no shortness of breath, chest pain or syncope. She has no overt bleeding or bruising. PAST MEDICAL HISTORY 1. Hx iron deficiency anemia --> RESOLVED Rx Venofer x 4 in early 2018 Due to GI blood loss from Oli erosions 2. Diverticulosis 3. Kidney stones 4. Stage II breast cancer, s/p partial mastectomy & XRT. 5. Benign joint hypermobility OPERATIVE PROCEDURES 1. R and L hip repair 2. Tubal ligation at the age of 48 3. Right breast partial mastectomy 4. L knee meniscus repair at the age of 23 OBSTETRIC HISTORY 1. - 3 and 1 live delivery (son who is currently 37 years old) 2. Currently postmenopausal, however she used to have heavy periods lasting 7 days in the past MEDICATIONS Current Outpatient Medications on File Prior to Visit Medication Sig Dispense Refill ??? artificial tear (TEARS) Drops 1 drop 3 times daily as needed. ??? multivit with calcium,iron,min ([id number]-JK-SKOR-MINERALS ORAL) Take by mouth. ??? omeprazole (PRILOSEC) [...] 60 tablet 5 No current facility-administered medications on file prior to visit. ADVERSE DRUG REACTIONS Allergies as of 03/12/2019 - Review Complete 03/12/2019 Allergen Reaction Noted ??? Hymenoptera allergenic extract Anaphylaxis 04/03/2011 ??? Tetracycline Anaphylaxis 11/06/2018 ??? Tetracyclines Anaphylaxis ??? Plaquenil [hydroxychloroquine] Rash and Other (See Comments) 08/12/2013 ??? 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 - Home area -lives in [facility] [place] with her son REVIEW OF SYSTEMS Fevers/chills/sweats No Recent infections No Unexplained weight loss No Headache/lightheadedness/syncope No Sinus pain/pressure No Oral sores/lesions/bleeding No Sore throat/dysphagia No Nosebleeds No Cough/SOB/chest pain/heart racing No Nausea/vomiting/dyspepsia No Abdominal pain No Diarrhea/constipation/rectal bleeding No Urinary pain, burning, incontinence No Hematuria No Vaginal discharge/bleeding No Skin rashes/ulcers No Back/joint pain/swelling Widespread pain Leg swelling/pain/redness No Bruising/petechiae/bleeding/melena No Sensory/motor No Polydipsia/polyuria/heat/cold intol No Lumps/bumps/swollen glands No Other Fatigue PHYSICAL EXAMINATION BP (!) 140/92 (Patient Position: Sitting) Pulse 71 Temp 36.8 ??C (98.2 ??F) (Temporal) Resp 19 Ht 165.4 cm (5' 5.13) Wt 94.3 kg (208 lb) SpO2 98% BMI 34.47 kg/m?? GENERAL: Well-appearing, articulate white female. LABORATORY STUDIES Results for DIAMOND GAMING ( ) as of 03/12/2019 11:07 Ref. Range 03/12/2019 09:45 WBC Latest Ref Range: 4.0 - 9.5 x10(3)/mcL 5.7 RBC Latest Ref Range: 4.00 - 5.21 x10(6)/mcL 5.16 Hemoglobin Latest Ref Range: 11.7 - 15.5 gm/dL 14.6 Hematocrit Latest Ref Range: 35.7 - 45.8 % 45.8 MCV Latest Ref Range: 82.6 - 94.4 fL 88.8 MCH Latest Ref Range: 27.1 - 32.0 pg 28.3 MCHC Latest Ref Range: 31.7 - 35.0 gm/dL 31.9 RDWSD Latest Ref Range: 37.0 - 46.0 fL 44.1 RDWCV Latest Ref Range: 11.5 - 14.1 % 13.6 Platelets Latest Ref Range: 145 - 357 x10(3)/mcL 228 Ref. Range 03/12/2019 09:45 Ferritin Latest Ref Range: 30 - 400 ng/mL 83 RADIOGRAPHIC STUDIES None IMPRESSION Diamond Gaming is a 73 y.o. woman with a history of iron deficiency anemia, likely due from chronicblood loss via Oli ulcers. The iron deficiency has been appropriately treated, she has a normalH/H and MCV and a ferritin level indicative of iron replete status. She's at risk for recurrence, however, due to ongoing, albeit small chronic blood loss, and may require a bit more iron supplementation than that which is contained in her multivitamin. PLAN/RECOMMENDATIONS I reassured Kimi that her H/H and iron have been restored. I reviewed with her that the serum ironconcentration is a poor measure of storage iron as it tends to fluctuate and reassured her that theferritin level of 110 back in November shows that she has had a robust response to supplementation. Her ferritin level of 83 today is still well within the iron replete range but should be followed. I re commended that she increase her iron intake, though, with iron supplements. She may not require daily supplementation but perhaps several times a week will be enough to maintain her storage iron. Shecan obtain these over the counter and Dr. Watts can follow her ferritin levels. Specifically, Melitond that she have her ferritin (NOT iron) checked every 3-4 months for now with the goal of maintaining it >50 by increasing oral iron supplementation as needed. I'll defer to Dr. Watts to manage this. 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 She had an extensive evaluation by Dr. Villalba several years ago that did not identify a significant coagulation factor or platelet disorder. She has had more than expected bleeding associated with surgical procedures, however, thus I've recommended the use of tranexamic acid, 10-15 mg/kg pre-operatively prior to each of the proposed orthopedic surgery procedures to reduce the amount of surgical blood loss. Finally, she has no contraindication to the use of standard thromboprophylaxis for the orthopedic procedures; HOWEVER, we favor an anticoagulant (e.g., apixaban, 2.5 mg twice daily) over aspirin given her history GI bleeding. Diamond Gaming had the opportunity to ask questions and indicated that all her questions were answered to her satisfaction. While I won't plan to see her back routinely, I'll be happy to see her backat any time in the future as appropriate. Charity De La Cruz MD Silvering Applicator, [facility] documented in this encounter Plan of Treatment Upcoming Encounters Date Type Department Care Team (Late st Contact Info) Description 11/16/2024 1:00 PM EST Office [place] [address] Paula Harris PA [facility] [place] [address] 01/26/2025 9:50 AM EDT Appointment Mammography/[place] [address] Joan Deutsch [facility] [place] [address] 01/26/2025 10:50 AM EDT Office [place] [phone] Joan Deutsch [facility] [place] [address] documented as of this encounter Results * Ferritin (03/12/2019 9:45 AM EDT) [facility] Ferritin 83 30 - 400 ng/mL [facility] Comment: Pediatric reference ranges not verified at [facility], interpret with caution. Reference ranges for females greater than 50 years of age approach values for men, i.e., 30-400 ng/mL. Blood specimen (specimen) 03/12/2019 9:45 AM EDT 03/12/2019 9:50 AM EDT Narrative Resulting Agency Comment Spec In Lab Charity De La Cruz MD CHEMISTRY ORDERABL ES [facility] [place] [address] * Hemogram (03/12/2019 9:45 AM EDT) [facility] White Blood Cell 5.7 4.0 - 9.5 x10(3)/[facility] Red Blood Cell 5.16 4.00 - 5.21 x10(6)/[facility] Hemoglobin 14.6 11.7 - 15.5 gm/dL [facility] Hematocrit 45.8 35.7 - 45.8 % [facility] Mean Cell Volume 88.8 82.6 - 94.4 fL [facility] Mean Cell Hemoglobin 28.3 27.1 - 32.0 pg [facility] Mean Cell Hemoglobin Concentration 31.9 31.7 - 35.0 gm/dL [facility] Platelet 228 145 - 357 x10(3)/[facility] RDW Standard Deviation 44.1 37.0 - 46.0 fL [facility] RDW coefficient of variation 13.6 11.5 - 14.1 % [facility] Mean Platelet Volume 11.1 7.6 - 12.9 fL [facility] NRBC% auto 0.0 % [facility] NRBC Absolute 0.000 0.000 - 0.000 x10(3)/[facility] Blood specimen (specimen) 03/12/2019 9:45 AM EDT 03/12/2019 9:50 AM EDT Narrative Resulting Agency Comment Spec In Lab Charity De La Cruz MD HEMATOLOGY ORDERAB LES Performing Organization Address City/State/[facility] Co de Phone Number [facility] [place] [address] documented in this encounter Visit Diagnoses Diagnosis Iron deficiency anemia, unspecified iron deficiency anemia type documented in this encounter Care Teams Gas Utility Worker Relationship Specialty Start Date End Date Mariluz Watts MD [address] [place] [address] PCP - General 08/22/10 documented as of this encounter
--- OUTSIDE RECORDS SUMMARY | 2024-05-18 19:56 | XMS_ITS | Encounter Summary ---
[place] [address] Care Team Providers Care Health And Safety Inspector Name Role Phone Mariluz Watts MD Primary Care Provider [phone] Reason for Visit * Reason Comments Dermatochalasis Encounter Details Date Type Department Care Team (Latest Contact Info) Description 07/22/2019 10:50 AM EDT Office [place] [address] Debbi Green MD [facility] [place] [address] Dermatochalasis of both upper eyelids Social History [...] Progress Notes * Debbi Green MD - 07/22/2019 10:50 AM EDT Images from the original note were not included. Encounter Diagnosis Name Primary? Dermatochalasis of both upper eyelids Diamond Gaming, a 73 y.o. female with the following problem(s): 1. POM#3 BUL medical bleph: well healed - good improvement in upper lid height, patient reporting improvement in visual traylor - Findings and concerns discussed with Diamond and she expressed understanding. FOLLOW UP - PRN Photo(s) taken by Debbi Green MD with patient's verbal permission for use for clinical and education purposes documented in this encounter Plan of Treatment Upcoming Encounters Date Type Department Care Team (Late st Contact Info) Description 11/16/2024 1:00 PM EST Office Visit General Surgery at [place] [phone] Paula Harris PA [facility] [place] [address] 01/26/2025 9:50 AM EDT Appointment Mammography/DXA at [place] [phone] Joan Deutsch APRN [facility] [place] [address] 01/26/2025 10:50 AM EDT Office Visit General Surgery at [place] [phone] Joan Deutsch APRN [facility] [place] [address] documented as of this encounter Procedures Procedure Name Priority Date/Time Associated Diagnosis Comments EXTERNAL PHOTOGRAPHY - OU - BOTH EYES Routine 07/22/2019 10:52 AM EDT Dermatochalasis of both upper eyelids documented in this encounter Results * EXTERNAL PHOTOGRAPHY - OU- BOTH EYES (07/22/2019 10:52 AM EDT) Anatomical Region Laterality Modality Other Narrative 07/22/2019 10:52 AM EDT postop Debbi Green MD OPHTHALMOLOGY SERVIC ES ORDERABLES documented in this encounter Visit Diagnoses Diagnosis Dermatochalasis of both upper eyelids documented in this encounter Care Teams Health And Safety Inspector Relationship Specialty Start Date End Date Mariluz Watts MD [address] [place] [address] [address] [place] [address] PCP - General 08/22/10 documented as of this encounter
--- OUTSIDE RECORDS SUMMARY | 2024-05-18 19:56 | XMS_ITS | Encounter Summary ---
Author Organization [facility] [place] [address] Care Team Providers Care Security Inspector Name Role Phone Mariluz Watts MD Primary Care Provider [phone] Encounter Details Date Type Department Care Team (Late st Contact Info) Description 02/06/2021 3:00 PM EDT TH Visit (TeleHealth) [place] [address] Bella Keenan MD [facility] [address] OAB (overactive bladder) Social History Tobacco Use [...] as of this encounter Progress Notes * Bella Keenan MD - 02/06/2021 3:00 PM EDT Telephone Office Visit Pt was booked for a TOV as there was no need for a video visit. There was nothing that needed to beseen during the visit. Subjective: Pt was last seen 10/11/20. Since then she has gone to PT for her urge incontinence. She previously was on mirabegron a few years ago but had to stop due to high blood pressure. She has been on vesicare since Sep. She feels that it works very well. She thought that the Pt also was very helpful. She does her exercises 3 times per day. She is able to do urge suppression techniques. Decision Making/Plan: Pt with urge incontinence - she is 85 - 90 % better. I discussed with her that there [...] may be greater risk with cumulative exposure. For now she will continue the Vesicare. I will plan to see her back in 1 year. Patient verbally consents to this telephone visit and understands that this visit may be billed, similar to a clinic office visit. This was a 17 min visit spent in discussion and counseling, reviewing the patient's DH records in [facility] and documenting the visit on the date of service. See prior note in italics HPI Urinary Incontinence New Patient Workup - Female Reason for Visit: This is a female 75 y.o. seen at the request of Mariluz [...] lost 60 lb in the last year HAND TURNER - No headaches or loss of consciousness. [...] hypermobility syndrome ??? GI bleeding 03/25/2011 ??? assisted current use of opiate analgesic ??? Motion [...] antichol Consideration of botox RTC 6 mon documented in this encounter Plan of Treatment Upcoming Encounters Date Type Department Care Team (Late st Contact Info) Description 11/16/2024 1:00 PM EST Office Visit [place] [address] Paula Harris PA [facility] [place] [address] 01/26/2025 9:50 AM EDT Appointment Mammography/DXA at [place] [phone] Joan Deutsch, GE [facility] [place] [address] 01/26/2025 10:50 AM EDT Office Visit General Surgery at [place] [phone] Joan Deutsch, GE [facility] [place] [address] documented as of this encounter Visit Diagnoses Diagnosis OAB (overactive bladder) Hypertonicity of bladder documented in this encounter Care Teams Security Inspector Relationship Specialty Start Date End Date Mariluz Watts MD [address] [place] [address] PCP - General 08/22/10 documented as of this encounter
--- OUTSIDE RECORDS SUMMARY | 2024-05-18 19:56 | XMS_ITS | Encounter Summary ---
Author Organization [facility] Address [facility] [place] [address] Care Team Providers Care State Epidemiologist Name Role Phone Mariluz Watts MD Primary Care Provider [phone] Reason for Visit * Physical Therapy (Routine) - Closed Specialty Diagnoses / Procedures Referred By John lyons Referred To Contact Physical Therapy Diagnoses OAB (overactive bladder) Bella Keenan MD [facility] [place] [address] [facility] [address] [place] [address] Referral ID Status Reason Start Date Expiration Date V isits Requested Visits Authorized [id number] Closed Evaluate and Treat 10/11/2020 10/11/2021 12 12 Encounter Details Date Type Department Care Team (Latest Contact Info) Description 11/23/2020 11:00 AM EST Office Visit Rehab PT at [facility] [address] [place] [address] Shaila Rendon PT OAB (overactive [...] as of this encounter Miscellaneous Notes * Initial Evaluation - Shaila Rendon, PT - 11/23/2020 11:00 AM EST Physical Therapy Initial Evaluation Note: Outpatient Date of Exam/First Treatment: 11/23/2020 Date of onset: 06/19/2015 Referring Provider: Bella Keenan MD Primary Insurance: Payor: MEDICARE / Plan: MEDICARE PART A & B / Product Type: *No Product type* / Diagnosis and comorbidities: ICD-10-CM 1. OAB (overactive bladder) N32.81 2. Pelvic floor dysfunction M62.89 3. Benign hypermobility syndrome M35.7 4. Diverticulosis K57.90 5. Malignant neoplasm of right breast, stage 2 C50.911 6. S/P tubal ligation Z98.51 7. Status post right hip replacement Z96.641 8. 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 Primary osteoarthritis of left knee M17.12 10. Anxiety associated with depression F41.8 Medicare Certification period: 11/23/2020 - 02/20/2021 CURRENT HISTORY: History of current problem: Diamond Gaming is a 74 y.o. female referred to physical therapy for overactive bladder and urge urinary incontinence. Was walking the dog 1 hour per day, has gushes when bladder spasm, but not just dribbling. Bladder spasms are random, but more predictable with full bladder. Toilet at least every 3 hours. Septicemia 2014 with infected stone; 2 surgeries. Since then has had urge incontinence. Vaginal atrophy Patient's expressed goals for treatment: reduce urgency Previous treatment/self care: mirabegron (stopped as it caused HTN), PT at [facility] in [place] (helpful, but not on meds at the time), 60# weight loss Metastatic breast cancer, 2010, reconstructive surgery and radiation, but no chemo Currently on Solifenacin (vesicare), an anticholinergic, which has helped a lot with bladder spasm,no change in BP Social History and Personal Factors affecting Plan of Care: walks when weather allows, stationary cycle 1 hour per day and just getting back to it since foot surgery: bunion at great toe, pinned second toe, medial arch bone spur removed, cleaned things up in mid-foot 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 [...] bladder) N32.81 ??? Pelvic floor dysfunction M62.89 Prior Level of Function: worsened after mirabegron; going through so many pads, unpredictable Current Exercise/Hobbies: stationary cycle, walking Functional Limitations: LE pain, jorje knees, which need to be replaced, but not right now Gynecologic/Obstetric History: : 1 Para: 1 Episiotomy/Tearing/Repair: no weight of largest baby: 8# 12.5 0z Difficulty healing after delivery: no : No Difficult Childbirth: yes, bleeding with bleeding disorder Regular menstrual cycles: no, monopause 2000 Sexual Dysfunction/Pain: History of sexual abuse or trauma: no Sexually Active: No Pain level with intercourse: N/A, level Level 1: painful, but able to have penetration at same frequency Level 2: painful and limits frequency Level 3: painful and prevents penetration Pain with: Pelvic exam: yes Tampon use: n/a Back, leg, groin and/or abdominal: yes, arthritis, B ARSLAN, needs TKA, recently had R foot surgery Bladder Function: Leaks with: with urge Number of episodes: more than once daily Severity of leakage: wet outerwear Pain or burning with urination: no Frequent urinary tract infections: no Difficulty starting the stream of urine: no Strain to empty your bladder: no Have a feeling of falling out: no Have pain with a full bladder: yes, bladder spasms Pad use and Type (per day): at least one in morning and one at night # daytime voids: 8 # episodes of nocturia: 2, was wetting the bed every 7-10 days, but with new medication is able to stop it Bowel Dysfunction: Frequency of bowel movements: 1 Consistency of stool: normal Include fiber in diet: yes Take laxatives/enema regularly: yes, colace daily to reduce constipation History of Constipation: yes Have diarrhea often: no Ignore the urge to defecate: occasionally Fecal incontinence: gas, but no liquid, formed stool Fluid Intake: 60 oz per day: water 0 oz caffeinated beverages: 0 oz Alcoholic beverages: Outcome Measure: Pelvic Floor Distress Inventory (PFDI-20): PFDI-20 11/23/2020 PFDI-POPDI 20.83 PFDI-CRADI 18.75 PFDI-ANALI 16.66 PFDI Summary Score 56.24 Lower abdomen pressure No Pelvic area heaviness or dullness No Bulge or something falling out No Push on vagina or rectum for bowel movem Yes - Quite bothersome Incomplete bladder emptying Yes - But not at all bothersome Push on vaginal area for urination No Strain too hard for bowel movement Yes - Somewhat bothersome Bowels not completely empty No Lose well formed stool beyond control No Lose loose stool beyond control Yes - But not at all bothersome Lose gas from rectum beyond control Yes - Somewhat bothersome Pain while passing stool No Urgency for bowel movement Yes - But not at all bothersome Bowel pass through rectum No Frequent urination Yes - But not at all bothersome Urine leakage associated with strong urg Yes - Moderately bothersome Urine leakage associated with coughing, No Urine leakage in small amounts No Difficulty emptying bladder No Pain or discomfort in abdomen/genitals No International Consultation on Incontinence Questionnaire-UI: ICIQ-UI Short Form How often do you leak urine? 3 Never 0 About once a week or less often 1 2-3 times a week 2 About once a day 3 Several times a day 4 All the time 5 How much urine do you usually leak? 6 None 0 A small amount 2 A moderate amount 4 A large amount 6 Overall, how much does leaking interfere with your everyday life? 8 (0 not at all, 10 a great deal) ICIQ Sum the scores: 17/ When does urine leak? (Check all that apply) Never - Urine does not leak x Leaks before you can get to the toilet x Leaks when you cough or sneeze Leaks when you are asleep Leaks when you are physically active/exercising Leaks when you have finished urinating or are dressed Leaks for no obvious reason Leaks all the time Bladder spasms CLINICAL FINDINGS: EXAMINATION OBJECTIVE: OBSERVATION: POSTURE: impacted by R foot surgical boot STRENGTH: lower extremity grossly 4/5 Patient gives verbal consent to external and internal exam. External Exam: Introitus: open to 1 cm at rest, normal, slightly asymmetric, prolapse not visualized Resting position: above level of ischial tuberosity Scarring: posterior fourchette, delivery grade 1 tear Skin condition: atrophic Q-tip test Non-tender to pelvic clock Pelvic Floor Contraction: present levator ani activity without perineal body elevation. Relaxation: no change in position Perineal movement with Cough: present and mild, caudal movement with cough Valsalva: present pelvic floor excursion Palpation: Non-tender to pelvic clock, labia minora smaller R but more palpable bulbo contraction, small blood blister/dark spot R labia majora 5 o'clock Anus: Rugae: present, symmetric Hemorrhoids: active/red Discharge: none Sensation and reflex testing: S3-5, light touch intact and equal Anal wink present Internal Exam: Introitus: unremarkable, circumferential stretch; pliable Vaginal vault size/Muscle volume: normal; Bulk decreased Urethral Mobility: none with cough and none with bearing Levator ani muscle strength: 3:00 2/5, 6:00 2/5, and 9:00 2/5, overflow abdominals, buttocks, adductors, quality of contraction fair Hold Time: 5 seconds, # of reps:5 Number of quick contractions in 10 seconds: 3 , then unable to fully relax Valsalva: mild pelvic floor excursion with signs of posterior laxity, with muscle contraction Muscle Palpation/tenderness: Obturator Internus absent, Levator Ani absent, coccygeus absent CLINICAL EVALUATION AND DIAGNOSIS: Signs of trauma: No Learning barriers: No Diamond Gaming is a 74 y.o. female is a 74 y.o. yo female referred for 1. OAB (overactive bladder) 2. Pelvic floor dysfunction 3. Benign hypermobility syndrome 4. Diverticulosis 5. Malignant neoplasm of right breast, stage 2 6. S/P tubal ligation 7. Status post right hip replacement 8. Status post total replacement of left hip 9. Primary osteoarthritis of left knee 10. Anxiety associated with depression . These findings are consistent with overactive pelvic floor muscles, impaired strength and impaired endurance with ms weakness, muscle spasm, pelvic floor dysfunction and urge urinary incontinence. The pt presents with 50% disability with functional mobility determined by functional outcome tools. Diamond Gaming has 3 personal factors and/or comorbidities contributing to her condition. The examination of body systems addressed 3+ elements. Their clinical presentation is Stable. This evaluation required clinical decision making of moderate complexity using standardized patientquestionnaires, functional outcome measures and/or subjective and objective data gathered during the visit. With skilled physical therapy Diamond Gaming has a fair prognosis to achieve their therapy goals. GOALS: MET date Short Term Therapy Goals (3 months, 02/20/2021) 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... 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 demonstrate the ability to adhere to an independent home program of pelvic floor muscle exercises for continued improvements in PFM function and functional ability. 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 report a 50% decrease in urinary incontinence episodes per voiding log. 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 demonstrate an increase in pelvic floor muscle endurance to 7 sec for improved continence. Patient to complete SEMG evaluation. 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 demonstrate ability to perform PFM contraction with good quality 75% accuracy, no overflow or breath holding. 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 MET date Business Unit Manager Therapy Goals (6 months, 05/23/2021) 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... Patient to be independent in the performance of a HEP of PFM exercises on a daily basis to increasestrength and recruitment to increase continence control. 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 demonstrate use of functional PFM contraction, performing a pelvic Knack to reduce by 75% or eliminate UI during functional mobility. 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 report a 50% decrease in urinary incontinence episodes per voiding log. Nocturia normal for the patients age 3 for restorative sleep. Improvement in PFDI-20 by 20% for statistically significant improvement in functional ability . 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 report reduced gush frequency to less than daily. INITIAL TREATMENT INCLUDED: Interventions completed today: Initial Evaluation: 30 min including patient education regarding physical therapy plan of care, diagnosis, and anatomy with use of model. Manual Therapy: [] PFM STM [] Vaginal [] rectal [] manual stretching Neuromuscular Re-education: 20 min [] SEMG biofeedback [x] Instruction in PFM contraction/Kegel with full relaxation in between [x] Long hold 10 on, 10 off, using visual cue of SEMG graph [x] Quick Flick, attention to full relaxation in between 3 sets of 5 reps [x] Downtraining/relaxation: vc to close eyes and take deep breaths, best result following endurance exercises [x] Pelvic Floor training: [x] Long hold 10 on, 20 off,5-10 reps 3x/day [x] Short holds 5 on, 10 off, 5-10 reps 3x/day [] Hip RC PREs: hip abd/ER with theraband and hip add/IR with ball, in sitting, 3 sets of 5 reps [x] Sitting with pressure on perineum feedback, PFM contraction/Kegel [] Sit<>stand from ball, PFM with initiation of motion in each direction [] Squats, PFM contraction with eccentric lowering into squat, stopping when feeling loss of contraction and returning to stand, progressively going lower with contraction maintained [x] Education in use of functional PFM contraction, performing a pelvic Knack during functional mobility. [x] Urge suppression: [x] Sit down [x] Pelvic floor contraction [x] 3 sets of 5 reps of 5 on 10 off [x] Long hold 30 sec [] Quick flick x5-10 [x] Distraction [x] Deep breath and relax [x] Perineal pressure [x] Walk normally to toilet, once urge goes away, do not vasquez Therapeutic exercise: [] Stretching [] Pelvic floor [] LB, [] LE, [] Strengthening []TrA Set, with []Sahrmann TrA level [] Self-care/Trainin min [] Dietary considerations [] Increase water intake by 8 oz to decrease urine concentration and bladder irritation [] Decrease caffeine consumption by 1 [] Decrease bladder irritants [] Decrease bowel irritants [] Reviewed difference in soluble and insoluble fiber [] Gluten free [] Dairy free [] FODMAP [x] Toilet positioning with stool to elevate legs and mechanics [x] sensory exploration [] Bladder diary [x] Diaphragmatic breathing -- patient is already doing yoga breathing during bladder spasms 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 follow HEP as instructed above. PLAN: Frequency and duration: 1x/2-3 weeks x6 months. End date: 05/23/2021 Plan of care: Therapeutic exercise, pelvic floor muscle exercises, SEMG/Real time US, STM, stretching, patient/family education, home exercise program, relaxation/downtraining Total Treatment time: 60 minutes Total Timed Code Treatment: 45 minutes Informed Consent: The patient consented to the physical therapy evaluation. The plan has been discussed with the patient and the patient agrees to and understands the physical therapy treatment plan and goals. Shaila Rendon PT documented in this encounter Plan of Treatment Upcoming Encounters Date Type Department Care Team (Late st Contact Info) Description 11/16/2024 1:00 PM EST Office [place] [address] Paula Harris PA [facility] [place] [address] 01/26/2025 9:50 AM EDT Appointment Mammography/[place] [address] Joan Deutsch APRN [facility] [place] [address] 01/26/2025 10:50 AM EDT Office [place] [address] Joan Deutsch APRN [facility] [place] [address] Scheduled Referrals Name Type Priority Associated Diagnoses [...] disorder documented in this encounter Care Teams State Epidemiologist Relationship Specialty Start Date End Date Mariluz Watts MD [address] [place] [address] PCP - General 08/22/10 documented as of this encounter
--- OUTSIDE RECORDS SUMMARY | 2024-05-18 19:56 | XMS_ITS | Encounter Summary ---
[place] [address] Care Team Providers Care Development Intern Name Role Phone Mariluz Watts MD Primary Care Provider [phone] Encounter Details Date Type Department Care Team (Late st Contact Info) Description 10/04/2020 [place] [address] Emily Crowley LNA Social History Tobacco Use Types Packs/Day Years [...] encounter Miscellaneous Notes * Telephone Encounter - Emily Crowley LNA - 10/04/2020 11:41 AM EST Called patient to review allergies and medication. LVM letting her know there is no need to call usback, we will review the day of. documented in this encounter Plan of Treatment Upcoming Encounters Date Type Department Care Team (Late st Contact Info) Description 11/16/2024 1:00 PM EST Office Visit General Surgery at [place] [phone] Paula Harris PA [facility] [place] [address] 01/26/2025 9:50 AM EDT Appointment Mammography/DXA at [place] [phone] Joan Deutsch, [facility] [place] [address] 01/26/2025 10:50 AM EDT Office Visit General Surgery at [place] [phone] Joan Deutsch, [facility] [place] [address] documented as of this encounter Visit Diagnoses Not on filedocumented in this encounter Care Teams Development Intern Relationship Specialty Start Date End Date Mariluz Watts MD [address] [place] [address] PCP - General 08/22/10 documented as of this encounter
--- OUTSIDE RECORDS SUMMARY | 2024-05-18 19:56 | XMS_ITS | Encounter Summary ---
[place] [address] Care Team Providers Care Shaper Machine Hand Name Role Phone Mariluz Watts MD Primary Care Provider [phone] Reason for Referral * Consultation (Routine) - Closed Specialty Diagnoses / Procedures Referred By John lyons Referred To Contact General Surgery Diagnoses HPV (human papilloma virus) anogenital infection Mayur Banuelos MD [facility] [place] [address] [facility] [address] [place] [address] Referral ID Status Reason Start Date Expiration Date V isits Requested Visits Authorized [id number] Closed Consult, Test & Treat 09/07/2022 09/07/2023 1 1 Encounter Details Date Type Department Care Team (Late st Contact Info) Description 09/07/2022 6:29 AM EST - 09/07/2022 9:46 AM EST Hospital En[place] [address] Mayur Banuelos MD [facility] [address] Atrial fibrillation, unspecified type; HPV (human papilloma virus) anogenital infection Discharge Disposition: Home Social History Tobacco Use [...] Sign Reading Time Taken Comments Blood Pressure 136/95 09/07/2022 9:30 AM EST Pulse 92 09/07/2022 8:52 AM EST Temperature 36.4 ??C (97.6 ??F) 09/07/2022 7:25 AM ES T Respiratory Rate 16 09/07/2022 9:20 AM EST Oxygen Saturation 99% 09/07/2022 9:30 AM EST Inhaled Oxygen Concentration - - Weight 92.1 kg (203 lb) 09/07/2022 7:12 AM EST Height 165.1 cm (5' 5) 09/07/2022 7:12 AM EST Body Mass Index 33.78 09/07/2022 7:12 AM EST documented in this encounter Discharge Instructions * Discharge Instructions* Ana M Armas RN - 09/07/2022 9:22 AM EST Colonoscopy: [...] occurs, please contact your Doctor. Please call [phone] before 8pm Mon-Fri with problems, questions or concerns. If you call after 8pm or on weekends, call the Hospital at [phone] and ask to speak to the Electrician Assistant asset protection agent and the gas compressor turbine operator will contact that person for you. When should you call for help? Call 911 anytime you think you may need emergency [...] any problems. Where can you learn more? [facility] View your After Visit Summary and more online at [email or web address] If you would like to provide feedback about your hospital experience, please call the Office of Patient and Family Relations at . If you have received this After Visit Summary in error, please immediately return it in person to the department, or notify the [facility] Privacy Office by calling toll free at between the hours of 8AM and 5PM to arrange for our retrieval of the documents at no cost to you. Content Version: 12.2 ?? [phone] [employer]. Care instructions adapted under license by [facility]. If you have questions about a medical condition or this instruction, always ask your healthcare professional. [employer] disclaims any warranty or liability for your [...] Temp Pulse Resp BP SpO2 O2 Device 09/07/22711 -- -- -- -- -- RA 09/07/22724 36.4 ??C (97.6 ??F) (!) 105 20 [...] complication. Informed Consent signed by patient (or fundraising sale representative). documented in this encounter Plan of Treatment Upcoming Encounters Date Type Department Care Team (Late st Contact Info) Description 11/16/2024 1:00 PM EST Office [place] [phone] Paula Harris PA [facility] [place] [address] 01/26/2025 9:50 AM EDT Appointment Mammography/[place] [phone] Joan Deutsch APRN [facility] [place] [address] 01/26/2025 10:50 AM EDT Office [place] [address] Joan Deutsch APRN [facility] [place] [address] Scheduled Referrals Name Type Priority Associated Diagnoses [...] PATHOLOGY Routine 09/07/2022 8:52 AM EST Colonoscopy, Karrie Darby ([id number]) 09/07/2022 8:00 AM EST 5 yr surv from 03/26/17 COLONOSCOPY Routine 09/07/2022 7:41 AM EST documented in this encounter Results * EKG 12 Lead (09/07/2022 9:26 AM EST) Ventricular rate 86 BPM MUSE SYSTEM QRS Duration 80 ms MUSE SYSTEM Q-T Interval 368 ms MUSE SYSTEM QTC Calculated (Bezet) 440 ms MUSE SYSTEM Calculated R [place] -54 degrees MUSE SYSTEM Calculated T [place] 19 degrees MUSE SYSTEM INTERPRETATION Atrial fibrillation Left axis deviation Abnormal ECG When compared with ECG of 18-SEP-2018 11:55, Atrial fibrillation has replaced Sinus rhythm Nonspecific T wave abnormality now evident in Inferior leads I personally reviewed the tracing and edited the fellows interpretation Confirmed by fellow MD Francisco, Sharon ([id number]) on 09/07/2022 3:59:02 PM Confirmed by MD MACIEL ARMIN ([id number]) on 09/07/2022 5:35:52 PM MUSE SYSTEM 09/07/2022 9:26 AM EST 09/07/2022 5:35 PM EST Mayur Banuelos MD ECG ORDERABLES Performing Organization Address City/[facility]/ZIP Co de Phone Number MUSE SYSTEM * Specimen to Pathology (09/07/2022 8:54 AM EST) AP Specimen 09/07/2022 8:54 AM EST 09/07/2022 8:54 AM EST Narrative [facility] - 09/07/2022 8:54 AM EST Specimen requisition ordered. ??Separate Pathology report to follow Mayur Banuelos MD PATHOLOGY/CYTOLOG Y ORDERABLES Performing Organization Address City/[facility] Co de Phone Number [facility] [place] [place] [address] * Specimen to Pathology (09/07/2022 8:54 AM EST) AP Specimen 09/07/2022 8:54 AM EST 09/07/2022 8:54 AM EST Narrative [facility] - 09/07/2022 8:54 AM EST Specimen requisition ordered. ??Separate Pathology report to follow Mayur Banuelos MD PATHOLOGY/CYTOLOG Y ORDERABLES Performing Organization Address City/[facility] Co de Phone Number [facility] [place] [address] * Specimen to Pathology (09/07/2022 8:54 AM EST) AP Specimen 09/07/2022 8:54 AM EST 09/07/2022 8:54 AM EST Narrative [facility] - 09/07/2022 8:54 AM EST Specimen requisition ordered. ??Separate Pathology report to follow Mayur Banuelos MD PATHOLOGY/CYTOLOG Y ORDERABLES Performing Organization Address City/[facility] Co de Phone Number [facility] [place] [address] * Surgical Pathology Report (09/07/2022 8:52 AM EST) Final Diagnosis [id number] ? Location: 4T; EA08; A The signing pathologist has (i) [...] - ??Tubular adenoma. CR-PX Electronically signed by: ?Shae STEINER, Maxim Verified: ??09/13/2022 14:39 ??Pathologist Performed at: ??-[facility] Dept. of Pathology, [place] [address] Train Operations Supervisor: Uyen Willis MD, FCAP, ??[facility] Certificate: [id number] ADDITIONAL STUDIES Whole slide scan: A1 Immunohistochemistry [...] labeled D1. ??pps 09/13/2022 2:39 PM EST [facility] GI Biopsy 09/07/2022 8:52 AM EST 09/07/2022 8:52 AM EST GI Biopsy 09/07/2022 8:52 AM EST 09/07/2022 8:52 AM EST GI Biopsy 09/07/2022 8:52 AM EST 09/07/2022 8:52 AM EST GI Biopsy 09/07/2022 8:52 AM EST 09/07/2022 8:52 AM EST Mayur Banuelos MD PATHOLOGY/CYTOLOG Y ORDERABLES [facility] [place] [id number] [facility] [place] [address] * Specimen to Pathology (09/07/2022 8:52 AM EST) AP Specimen 09/07/2022 8:52 AM EST 09/07/2022 8:52 AM EST Narrative [facility] - 09/07/2022 8:52 AM EST Specimen requisition ordered. ??Separate Pathology report to follow Mayur Banuelos MD PATHOLOGY/CYTOLOG Y ORDERABLES [facility] [place] [address] * COLONOSCOPY (09/07/2022 7:41 AM EST) COLONOSCOPY [facility] Endoscopy Procedure Date: 09/07/2022 7:41 AM ? Patient Name: Diamond Gaming ? N: [id number] ? Date of : 1945 ? Age: 76 ? Order #: [id number] ? Instrument Name: [id number] ? Procedure: ? Colonoscopy Indications: ? High risk colon cancer ? surveillance: Personal history of ? colonic polyps Patient Profile: ? This is a 76 year old female. Refer ? to note in patient chart for ? documentation of history and ? physical. Last Colonoscopy: 2017. Providers: ? Mayur Banuelos MD, Navi Koenig ? [place] Martinez, Beckie Lee Referring : [...] preparation was evaluated ? using the BBPS (Olney Bowel ? Preparation Scale) with scores of: [...] were successfully placed (MR ? conditional). Clip assembler brazer: Steris 11 and 16mm. ? There was [...] PROVATION documented in this encounter Visit Diagnoses Diagnosis Atrial fibrillation, unspecified type HPV (human papilloma virus) anogenital infection Human papillomavirus in conditions classified elsewhere and of unspecified site documented in this encounter Administered Medications Inactive Administered Medications - up to 3 most recent administrations Medication Order MAR Action Action Date Dose Rate Site lactated ringers infusion 30 mL/hr, Intravenous, CONTINUOUS, Starting on Sat09/07/22 at 0830, Until Sat09/07/22 at 0923, Endoscopy (Intra-Procedure) New Bag 09/07/2022 8:00 AM EST 30 mL/hr 30 mL/hr documented in this encounter Active and [...] RN) documented in this encounter Care Teams Shaper Machine Hand Relationship Specialty Start Date End Date Mariluz Watts MD [address] [facility] [address] [place] [address] PCP - General 08/22/10 documented as of this encounter
--- OUTSIDE RECORDS SUMMARY | 2024-05-18 19:57 | XMS_ITS | Encounter Summary ---
[place] [address] Care Team Providers Care Preconstruction Manager Name Role Phone Mariluz Watts MD Primary Care Provider Reason for Visit * Reason Onset Date Comments Pre Procedure Call 12/03/2018 Encounter Details Date Type Department Care Team (Late st Contact Info) Description 12/03/2018 Tele[place] [address] Shekhar Moody MD [facility] [place] [address] Pre Procedure Call Social History Tobacco Use [...] encounter Miscellaneous Notes * Telephone Encounter - Anusha Mathur - 12/30/2018 1:39 PM EDT I called and left a message for patient to call [phone] directly and schedule surgery with Dr. Moody. * Telephone Encounter - Cleo Coyne - 12/03/2018 10:59 AM EST I called and left a message for patient to call [phone] directly and schedule surgery with Dr. moody. documented in this encounter Plan of Treatment Upcoming Encounters Date Type Department Care Team (Late st Contact Info) Description 11/16/2024 1:00 PM EST Office [place] [address] Paula Harris PA [facility] [place] [address] 01/26/2025 9:50 AM EDT Appointment Mammography/[place] [address] Joan Deutsch [facility] [place] [address] 01/26/2025 10:50 AM EDT Office [place] [address] Joan Deutsch [facility] [place] [address] documented as of this encounter Visit Diagnoses Not on filedocumented in this encounter Care Teams Preconstruction Manager Relationship Specialty Start Date End Date Mariluz Watts MD [address] [place] [address] [address] [place] [address] PCP - General 08/22/10 documented as of this encounter
--- OUTSIDE RECORDS SUMMARY | 2024-05-18 19:57 | XMS_ITS | Encounter Summary ---
Author Organization [facility] [place] [address] Care Team Providers Care Kindergarten Teacher Name Role Phone Mariluz Watts MD Primary Care Provider [phone] Encounter Details Date Type Department Care Team (Late st Contact Info) Description 11/28/2018 Notes Only Hematology [place] [address] Charity De La Cruz MD [facility] [address] HEMATOLOGY [place] [address] Social History Tobacco Use Types Packs/Day Years [...] as of this encounter Progress Notes * Charity De La Cruz MD - 11/28/2018 1:43 PM EST Images from the original note were not included. [facility] [place] [address] HEMATOLOGY FOLLOW UP Kimi has completed her planned course of IV iron infusions and an EGD was performed that showed a big hiatal hernia with Oli erosions, likely the source of blood loss and iron deficiency. Labs today show resolution of anemia and sabianist of iron stores: Results for DIAMOND GAMING ( ) as of 11/28/2018 13:45 Ref. Range 11/28/2018 10:20 WBC Latest Ref Range: 4.0 - 9.5 x10(3)/mcL 5.2 RBC Latest Ref Range: 4.00 - 5.21 x10(6)/mcL 5.74 (H) Hemoglobin Latest Ref Range: 11.7 - 15.5 gm/dL 14.1 Hematocrit Latest Ref Range: 35.7 - 45.8 % 45.0 MCV Latest Ref Range: 82.6 - 94.4 fL 78.4 (L) MCH Latest Ref Range: 27.1 - 32.0 pg 24.6 (L) MCHC Latest Ref Range: 31.7 - 35.0 gm/dL 31.3 (L) RDWSD Latest Ref Range: 37.0 - 46.0 fL 64.1 (H) RDWCV Latest Ref Range: 11.5 - 14.1 % 23.2 (H) Platelets Latest Ref Range: 145 - 357 x10(3)/mcL 228 Ref. Range 11/28/2018 10:20 Ferritin Latest Ref Range: 30 - 400 ng/mL 110 Recommendations: 1. Continue oral iron supplementation for the intermediate designer to keep up with chronic GI loss. 2. Resolution of anemia now permits proceeding with planned left knee arthroplasty procedure. 3. Hemostatic support with tranexamic acid (10-15 mg/kg) prior to major surgery. 4. Post-op thromboprophylaxis with apixaban, 2.5 mg twice daily for 28 days (NO aspirin). I will not make a follow up appointment in Hematology for Kimi but I remain available for assistance as necessary. Charity De La Cruz MD Digital Performance Analyst, [facility] documented in this encounter Plan of Treatment Upcoming Encounters Date Type Department Care Team (Late st Contact Info) Description 11/16/2024 1:00 PM EST Office Visit General Surgery at [place] [address] Paula Harris PA [facility] [place] [address] 01/26/2025 9:50 AM EDT Appointment Mammography/[place] [address] Joan Deutsch [facility] [place] [address] 01/26/2025 10:50 AM EDT Office [place] [address] Joan Deutsch, [facility] [place] [address] documented as of this encounter Visit Diagnoses Not on filedocumented in this encounter Care Teams Kindergarten Teacher Relationship Specialty Start Date End Date Mariluz Watts MD [address] [place] [address] PCP - General 08/22/10 documented as of this encounter
--- OUTSIDE RECORDS SUMMARY | 2024-05-18 19:57 | XMS_ITS | Encounter Summary ---
[place] [address] Care Team Providers Care Value Stream Coach Name Role Phone Mariluz Watts MD Primary Care Provider [phone] Reason for Visit * Reason Comments Follow Up Surgery Encounter Details Date Type Department Care Team (Late st Contact Info) Description 12/12/2017 12:15 PM EDT Office [place] [address] Bella Ly APRN [facility] [place] [address] History of breast cancer Social History Tobacco [...] of this encounter Progress Notes * Bella Ly APRN - 12/12/2017 12:15 PM EDT Diamond is a 71 y[address] Pt of Dr Marquez who returns in surgical follow up. [...] carcinoma with lobular features Tumor Grade: Intermediate Shphgs-Rnlzm-Kihpvzhepj Score: 7 Tubular Differentiation: 3 Mitotic Rate: [...] sentinel nodes: 2 (Specimen A - Right Snook node) No. positive for carcinoma: 1 (H&E) No. with IHC (+) cells only: 0 (cells not seen by H&E, see Note*) No. negative for carcinoma: 1 (both H&E and IHC For positive nodes: Largest kristi deposit 0.2 cm Extranodal extension Absent Estrogen/Progestin receptors: Performed on blocks C2 and C11 ER immunoreactivity: Positive (see Diagnostic hanna*) IL immunoreactivity: Positive (see Diagnostic hanna*) HER2/shonda expression by FISH: Negative Kimi was returned to the OR for deep margin excision. This was negative for residual malignancy. Kimi declined chemotherapy and proceeded to whole breast xrt.She completed 5 years of arimidex. She is still bothered by her smaller than expected breast size after reduction. Doing OK but dealing with interstitial cystitis. On exam, well appearing and in nad. No cervical, supraclavicular or axillary adenopathy. B/L reduction mammoplasty incisions well healed . Fat necrosis in the right breast 10:00 1x2cm and left breastat 12:00 and 3:00 at areolar border approximately 1cm. No additional masses appreciated. Mammogram today: pending [facility] Follow Up Note armRange of motion of surgical arm complete Lymphedema present No Cosmesis-surgeon reported Cosmesis-patient reported Good Good Local or regional recurrence No Contralateral cancer present No Distant recurrence present No Date of last follow up 12/12/17 A/P Doing well without evidence of recurrence or metastatic disease.Plan follow up in 1 year with bilateral mammogram. She will see Dr. Merlos later today. documented in this encounter Plan of Treatment Upcoming Encounters Date Type Department Care Team (Late st Contact Info) Description 11/16/2024 1:00 PM EST Office [place] [address] Paula Harris PA [facility] [place] [address] 01/26/2025 9:50 AM EDT Appointment Mammography/[place] [address] Joan Deutsch APRN [facility] GENER[place] [address] 01/26/2025 10:50 AM EDT Office [place] [address] Joan Deutsch APRN [facility] GENER[place] [address] documented as of this encounter Results * Mammo Screening Cad and Irvin Bilateral (11/28/2018 10:37 AM EST) Anatomical Region Laterality Modality Breast Bilateral Mammography Narrative 11/28/2018 10:44 AM EST BILATERAL MAMMOGRAPHY REASON FOR EXAM: 72-year-old female, history of right breast cancer and lumpectomy with reduction, radiation, 2009. TECHNIQUE: CC and MLO views were obtained of each breast using standard 2-D mammography as well as 3-D tomosynthesis. Computer aided detection was used. Comparison: This is compared with prior images. FINDINGS: There are scattered areas of fibroglandular density. There are no suspicious microcalcifications, masses, or areas of distortion. The pattern is stable. Stable postsurgical change. CONCLUSION: No mammographic evidence of malignancy. RECOMMENDATION: Routine screening. A result letter has been sent to this patient by the [facility]. BIRADS CATEGORY 2: Benign findings. * ??The [employer] and The Society of Breast Imaging recommend annual screening beginning at age 40 for the general female population. * ??Screening should continue as long as a woman is in good health and is expected to live 10 more years or longer. * ??All women should be familiar with the known benefits, limitations, and potential harms linked to breast cancer screening. They also should know how their breasts normally look and feel and report any breast changes to a health care provider right away. * ??Some women, because of their family history, a genetic tendency, or certain other factors, should be screened with MRIs along with mammograms. (The number of women who fall into this category is very small.) The patient and health care provider should discuss the patient history and decide if earlier screening and breast MRI are appropriate. Thank you for letting us participate in the care of this patient. For questions regarding this report, please contact the number below. ? Electronically signed by: EMIL Roth [facility], [facility]–1983 ([phone]), at 11/28/2018 10:44 AM Bella Ly HIM SPECIALIST IMG MAMMO ORDERA BLES documented in this encounter Visit Diagnoses Diagnosis History of breast cancer Personal history of malignant neoplasm of breast History of breast cancer Personal history of malignant neoplasm of breast documented in this encounter Care Teams Value Stream Coach Relationship Specialty Start Date End Date Mariluz Watts MD [address] [place] [address] PCP - General 08/22/10 documented as of this encounter
--- OUTSIDE RECORDS SUMMARY | 2024-05-18 19:57 | XMS_ITS | Encounter Summary ---
[place] [address] Care Team Providers Care End Finder Twisting Department Name Role Phone Mariluz Watts MD Primary Care Provider [phone] Encounter Details Date Type Department Care Team (Late st Contact Info) Description 10/13/2018 Telephone [place] [address] Milena Williamson Social History Tobacco Use Types Packs/Day Years [...] encounter Miscellaneous Notes * Telephone Encounter - Milena Williamson - 10/13/2018 12:29 PM EST Diamond Gaming [id number] Diagnosis: Anemia 1. Have you ever had a EGD before? [] YES [x] NO If Yes, Date of Last [place]: If yes, did you have any problems with the procedure? [] YES [] NO Explain: What type of sedation was used: 2. Do you take any Blood Thinners? [] YES [x] NO If Yes, type: 3. Do you have a Pacemaker or Defibrillator device? [] YES [x] NO If Yes send inSahale Snacks message to [employer] ENDO DEVICE CHECK 4. Are you a diabetic? [] YES [x] NO If yes, controlled by meds or diet? 5. Do you have any Allergies to Eggs, Latex or Medications? [] YES [x] NO If Yes, what: 6. Do you take any Oral Iron Supplements (Including multi vitamins)? [] YES [x] NO 7. Do you have a history of three or more abdominal surgeries? [] YES [x] NO 8. Have you had a problem with sedation or anesthesia? [x] YES [] NO Nausea 9. Do you have a c-pap machine or oxygen tank? [] C-PAP [] Oxygen [x] NO 10. Do you take prescription narcotic pain medications? [] YES [x] NO 11. You must have a responsible alliance party stay at the facility during your procedure and drive you home? [x] YES 12. Is there any other information you would like to give us to aid in scheduling? Height: __5'5 Weight:210 lbs BMI: _34.9___ Age:72 y.o. documented in this encounter Plan of Treatment Upcoming Encounters Date Type Department Care Team (Late st Contact Info) Description 11/16/2024 1:00 PM EST Office Visit General Surgery at [place] [phone] Paula Harris PA [facility] [place] [address] 01/26/2025 9:50 AM EDT Appointment Mammography/DXA at [place] [phone] Joan Deutsch [facility] [place] [address] 01/26/2025 10:50 AM EDT Office Visit General Surgery at [place] [phone] Joan Deutsch [facility] [place] [address] documented as of this encounter Visit Diagnoses Not on filedocumented in this encounter Care Teams End Finder Twisting Department Relationship Specialty Start Date End Date Mariluz Watts MD [address] [place] [address] PCP - General 08/22/10 documented as of this encounter
--- OUTSIDE RECORDS SUMMARY | 2024-05-18 19:57 | XMS_ITS | Encounter Summary ---
Author Organization [facility] [place] [address] Care Team Providers Care Immigration Lawyer Name Role Phone Mariluz Watts MD Primary Care Provider [phone] Encounter Details Date Type Department Care Team (Latest Contact Info) Description 07/03/2018 9:46 AM EDT - 07/03/2018 11:59 PM EDT Hospital Encounter XRay at [address] [place] [address] Shekhar Moody MD [facility] [place] [address] Right foot pain Discharge Disposition: Home Social History Tobacco Use [...] Take 4 mg by mouth daily. 01/15/2023 diaZEPam (VALIUM) 2 mg Tablet Take 2 mg by mouth nightly as needed for Anxiety. 09/07/2022 ibuprofen (ADVIL;MOTRIN) 600 mg tablet Take 600 mg by mouth 4 times daily. 11/06/2018 cholecalciferol, Vitamin D3, (VITAMIN D) 1,000 unit Tab tablet Take 1 tablet by mouth daily. 60 tablet 5 07/25/2012 09/07/2022 documented as of this encounter Plan of Treatment Upcoming Encounters Date Type Department Care Team (Late st Contact Info) Description 11/16/2024 1:00 PM EST Office Visit General Surgery at [place] [phone] Paula Harris PA [facility] [place] [address] 01/26/2025 9:50 AM EDT Appointment Mammography/[place] [phone] Joan Deutsch APRN [facility] [place] [address] 01/26/2025 10:50 AM EDT Office [place] [phone] Joan Deutsch RESEARCH PROGRAM INTERN [facility] [place] [address] documented as of this encounter Procedures Procedure Name Priority Date/Time Associated Diagnosis Comments XR FOOT MIN 3 VIEWS RIGHT Routine 07/03/2018 10:35 AM EDT Right foot pain documented in this encounter Results * XR Foot Min 3 views Right (Generic) (07/03/2018 10:35 AM EDT) Anatomical Region Laterality Modality Foot Right Digital Radiogra phy Impressions 07/03/2018 11:02 AM EDT Severe midfoot degenerative arthropathy slightly worsened since 2016 Hallux valgus deformity Narrative 07/03/2018 11:02 AM EDT EXAMINATION: XR FOOT MIN 3 VIEWS RIGHT (GENERIC) CLINICAL HISTORY: Right foot pain TECHNIQUE: 3 views COMPARISON: 05/23/2016 FINDINGS: There is a severe degenerative arthropathy in the RIGHT mid foot with diffuse joint space loss, subchondral sclerosis and proliferative osteophytes. This is slightly worsened since the patient's 2016 study. Mild hallux valgus deformity with associated degenerative changes of first MTP joint and overlying bunion. No erosions or acute injury. Moderate inferior calcaneal spur. Procedure Note Cece Marrero MD - 07/03/2018 EXAMINATION: XR FOOT MIN 3 VIEWS RIGHT (GENERIC) CLINICAL HISTORY: Right foot pain TECHNIQUE: 3 views COMPARISON: 05/23/2016 FINDINGS: There is a severe degenerative arthropathy in the RIGHT mid foot withdiffuse joint space loss, subchondral sclerosis and proliferative osteophytes.This is slightly worsened since the patient's 2016 study. Mild hallux valgusdeformity with associated degenerative changes of first MTP joint and overlyingbunion. No erosions or acute injury. Moderate inferior calcaneal spur. IMPRESSION Severe midfoot degenerative arthropathy slightly worsened since 2016 Hallux valgus deformity Shekhar Moody MD IMG DX ORDERABLES documented in this encounter Visit Diagnoses Diagnosis Right foot pain Pain in limb documented in this encounter Care Teams Immigration Lawyer Relationship Specialty Start Date End Date Mariluz aWtts MD [address] [place] [address] PCP - General 08/22/10 documented as of this encounter
--- OUTSIDE RECORDS SUMMARY | 2024-05-18 19:57 | XMS_ITS | Encounter Summary ---
Author [facility] [place] [address] Care Team Providers Care Data Collection Associate Name Role Phone Mariluz Watts MD Primary Care Provider [phone] Encounter Details Date Type Department Care Team (Latest Contact Info) Description 11/06/2018 11:48 AM EST - 11/06/2018 3:17 PM EST Hospital Encounter [place] [address] Charisma Aguayo MD [facility] [place] [address] Discharge Disposition: Home Social History Tobacco Use [...] Sign Reading Time Taken Comments Blood Pressure 136/71 11/06/2018 2:40 PM EST Pulse 87 11/06/2018 1:30 PM EST Temperature 37.2 ??C (99 ??F) 11/06/2018 12:16 PM EST Respiratory Rate 18 11/06/2018 2:40 PM EST Oxygen Saturation 99% 11/06/2018 2:40 PM EST Inhaled Oxygen Concentration - - Weight 90.7 kg (200 lb) 11/06/2018 12:16 PM EST Height - - Body Mass Index 32.92 10/10/2018 11:29 AM EST documented in this encounter Discharge Instructions * Discharge Instructions* Charity Ashby, RN - 11/06/2018 1:53 PM EST UPPER GI ENDOSCOPY WHAT TO EXPECT AFTER THE PROCEDURE After the test you may feel a little more gassy or bloated than usual, this is normal. ACTIVITY Because of the sedation that you received Your judgement and reaction time are affected ?? Go home and rest quietly for the remainder of the day. You may resume your normal activities tomorrow. ?? Change from one position to the next slowly. You may lose your balance unexpectedly Be careful on stairs, as you may be unsteady on your feet. FOR THE NEXT 24 HRS ?? DO NOT DRIVE OR OPERATE ANY MACHINERY ?? DO NOT DRINK ALCOHOLIC BEVERAGES ?? DO NOT SIGN LEGAL DOCUMENTS ?? If you are a smoker: DO NOT SMOKE WHILE YOU ARE ALONE Diet ?? Start by eating small portions of foods that ordinarily will not upset your stomach. Be gentle with what you choose to start with. ?? Drink plenty of fluids ( unless otherwise told not to) Medications You may have a mild sore throat. Ice chips, popsicles, over the counter throat lozenges or spray may help numb your throat. This procedure should not cause a fever. IV SITE-- slight redness or tenderness is normal, you can use warm compresses if you get concerned.If the tenderness +/or redness increases or foul drainage and a red streak occurs, please contact your PCP immediately. WHEN SHOULD YOU CALL FOR HELP? Call 911 anytime you think that you need emergency care. For example, call if: You passed out (lost consciousness). You cough up blood. You vomit blood or what looks like coffee grounds. You pass maroon or very bloody stools. Call your healthcare provider or seek immediate medical attention if: You have trouble swallowing. You have belly pain. Your stools are black or tarlike or have streaks of blood. You are sick to your stomach or cannot keep fluids down. Watch closely for changes in your health, and be sure to contact your doctor IF Your throat still hurts after a day or two You do not get better as expected. Saturday-Saturday Same Day Endo [phone] 7a-8p Otherwise contact [phone] and ask to speak to the scientific director field sales consultant Follow-up care is a hanna part of your treatment and safety. Be sure to make and go to all appointments, and call your doctor if you are having problems. Instructions have been reviewed and patient expresses understanding documented in this encounter Medications at Time of Discharge Medication Sig Dispensed Refills Start Date End Date tolterodine LA (Detrol LA) 4 mg ER 24 hr capsule Take 4 mg by mouth daily. 01/15/2023 traMADol (ULTRAM) 50 mg Tablet Take 50 mg by mouth every 6 hours as needed for Pain. 12/26/2018 acetaminophen (TYLENOL) 500 mg Tablet Take 1,000 mg by mouth every 6 hours as needed for Pain. 09/07/2022 pantoprazole (PROTONIX) 20 mg Tablet, Delayed Release (E.C.)Indications:prev ention of NSAID-induced gastric ulcer Take 1 tablet by mouth daily. Indications: Prevention of NSAID-Induced Gastric Ulcer 90 tablet 09/19/2018 12/26/2018 ferrous sulfate 325 mg (65 mg iron) Tablet, Delayed Release (E.C.) Take 1 tablet by mouth every other day. 09/19/2018 12/26/2018 metroNIDAZOLE (METROGEL) 0.75 % GelIndications:Rosacea Apply to the face twice daily as needed. 45 g 2 08/14/2018 09/07/2022 diaZEPam (VALIUM) 2 mg Tablet Take 2 mg by mouth nightly as needed for Anxiety. 09/07/2022 cholecalciferol, Vitamin D3, (VITAMIN D) 1,000 unit Tab tablet Take 1 tablet by mouth daily. 60 tablet 5 07/25/2012 09/07/2022 documented as of this encounter H&P Notes * Charisma Aguayo MD - 11/06/2018 12:34 PM EST Gastroenterology and Hepatology Pre-Procedure History and Physical Exam Procedure: EGD: Indication: iron def anemia Patient Active Problem List Diagnosis Code ??? [...] ??? Hallux valgus of right foot M20.11 EXAM: HEENT: Airway examined, oropharynx clear Mallampati Score: II (soft palate, uvula, fauces visible) LUNGS: Clear to auscultation HEART: Regular rate and rhythm, normal S1, S2 ABDOMEN: Normal bowel sounds, soft, non tender, non distended, A/P Proceed with the planned endoscopic procedure. ASA 2 - Patient with mild systemic disease with no functional limitations Sedation Plan: moderate (conscious sedation) Risks and benefits of the procedure explained to the patient. Consent signed. documented in this encounter Plan of Treatment Upcoming Encounters Date Type Department Care Team (Late st Contact Info) Description 11/16/2024 1:00 PM EST Office [place] [phone] Paula Harris, PA [facility] [place] [address] 01/26/2025 9:50 AM EDT Appointment Mammography[place] [phone] Joan Deutsch APRN [facility] GENERAL SURGERY [place], [place] [phone] 01/26/2025 10:50 AM EDT Office [place] [address] Joan Deutsch, GE [facility] [place] [address] documented as of this encounter Procedures Procedure Name Priority Date/Time Associated Diagnosis Comments EGD, UPPER GI ENDOSCOPY (WRVU 2.09) 11/06/2018 1:07 PM EST Anemia UPPER GI ENDOSCOPY Routine 11/06/2018 12 :33 PM EST documented in this encounter Results * UPPER GI ENDOSCOPY (11/06/2018 12:33 PM EST) [facility] Signature UPPER GI ENDOSCOPY [facility] Endoscopy Procedure Date: 11/06/2018 12:33 PM ? Patient Name: Diamond Gaming ? Date of : 1945 ? Age: 72 ? Order #: [id number] ? Instrument Name: [id number] ? Procedure: ? Upper GI endoscopy Indications: ? Iron deficiency anemia Providers: ? Charisma Aguayo MD, Ken Lang ? Ortega Donis RN, Danisha Salvador MD: ?Mariluz Watts MD Medicines: ? Midazolam 4 mg IV, Fentanyl 150 ? micrograms IV Complications: ? No immediate complications. Procedure: ? Pre-Anesthesia Assessment: ? - Prior to the procedure, a History ? and Physical was performed, and ? patient medications, allergies and ? sensitivities were reviewed. The ? patient's tolerance of previous ? anesthesia was reviewed. ? - The risks and benefits of the ? procedure and the sedation options ? and risks were discussed with the ? patient. All questions were answered ? and informed consent was obtained. ? The procedure, indications, benefits, ? risks and alternatives were explained ? to the patient. Specifically ? discussed were potential ? complications including, but not ? limited to, bleeding, perforation, ? infection, missing a cancer, and ? adverse medication reactions. The ? Endoscope was introduced through the ? mouth, and advanced to the third part ? of duodenum. The patient tolerated ? the procedure well. The upper GI ? endoscopy was accomplished without ? difficulty. The patient tolerated the ? procedure fairly well. ? Findings: ? A large hiatal hernia was present. This was ? associated with Oli erosions. ? The stomach was normal. ? The examined duodenum was normal. ? Moderate Sedation: ? I was present during the intraservice time as ? documented by the sedation RN. Impression: ?- Large hiatal hernia. ? - Normal stomach. ? - Normal examined duodenum. ? - No specimens collected. Recommendation: ?Iron deficiency is likely related to ? slow chronic blood loss related to ? the large hiatal hernia. ? Suggest continuing once daily PPI ? (Protonix or other). ? Follow hgb, she likely will need oral ? iron indefinitely. ? Attending Participation: ? I was present and participated during the entire ? procedure, including non-hanna portions. ? I was present during the intraservice time as ? documented by the sedation RN. ? Charisma Aguayo MD 11/06/2018 1:32:59 PM This report has been signed electronically. Number of Addenda: 0 Note Initiated On: 11/06/2018 12:33 PM PROVATION 11/06/2018 12:3 3 PM EST Mariluz Watts MD GENERAL SURGICAL ORD ERABLES PROVATION documented in this encounter Visit Diagnoses Not on filedocumented in this encounter Administered Medications Inactive Administered Medications - up to 3 most recent administrations Medication Order MAR Action Action Date Dose Rate Site lactated Ringers infusion 100 mL/hr, Intravenous, CONTINUOUS, Starting on Lizz 11/06/18 at 1230, Until Lizz 11/06/18 at 1447, Day of Surgery (Day of Procedure) New Bag 11/06/2018 12:30 PM EST 100 mL/hr 100 mL/hr documented in this encounter Active and Recently Administered Medications Times are shown in EST. Continuous Medication Order 11/04/2018 11/05/2018 11/06/2018 lactated Ringers infusion (CANCELED) 100 mL/hr, Intravenous, CONTINUOUS, Starting on Lizz 11/06/18 at 1230, Until Lizz 11/06/18 at 1447, Day of Surgery (Day of Procedure) 1230 (New Bag - Prov ider: Karin Lopez RN) PRN Medication Order 11/04/2018 11/05/2018 11/06/2018 fentaNYL 50 mcg/mL multi-dose injection (CANCELED) ONCE PRN, Starting on Lizz 11/06/18 at 1312, Until Lizz 11/06/18 at 1717, Intra-Operative (Intra-Procedure), Routine 1312 (Given - Provid er: Ken Donis RN)1316 (Given - Provider: Ken Donis RN)1319 (Given - Provider: Ken Donis RN) midazolam (PF) (VERSED) multi-dose injection (CANCELED) ONCE PRN, Starting on Lizz 19 at 1312, Until Lizz 11/06/18 at 1717, Intra-Operative (Intra-Procedure), Routine 1312 (Given - Provid er: Ken Donis RN)1313 (Given - Provider: Ken Donis RN)1316 (Given - Provider: Ken Doins RN)1319 (Given - Provider: Ken Donis RN)1322 (Given - Provider: Ken Donis RN) ondansetron (ZOFRAN) injection 4 mg (CANCELED) 4 mg, Intravenous, EVERY 8 HOURS PRN, Starting on Lizz 11/06/18 at 1256, Until Lizz 19 at 1447, Nausea, Endoscopy (Intra-Procedure) 1312 (Given - Provid er: Ken Donis RN) documented in this encounter Care Teams Data Collection Associate Relationship Specialty Start Date End Date Mariluz Watts MD [address] [place] [address] PCP - General 08/22/10 documented as of this encounter
--- OUTSIDE RECORDS SUMMARY | 2024-05-18 19:57 | XMS_ITS | Encounter Summary ---
[place] [address] Care Team Providers Care Welder Name Role Phone Mariluz Watts MD Primary Care Provider [phone] Reason for Visit * Reason Comments Anemia Encounter Details Date Type Department Care Team (Latest Contact Info) Description 10/10/2018 11:30 AM EST - 10/10/2018 11:59 PM EST Hospital Encounter Hematology [place] [address] Iron deficiency anemia, unspecified iron deficiency anemia [...] Sign Reading Time Taken Comments Blood Pressure 135/88 10/10/2018 12:11 PM EST Pulse 94 10/10/2018 12:11 PM EST Temperature 36.9 ??C (98.4 ??F) 10/10/2018 12:[address] Respiratory Rate 19 10/10/2018 12:11 PM EST Oxygen Saturation 98% 10/10/2018 12:11 PM EST Inhaled Oxygen Concentration - - Weight 97.3 kg (214 lb 9.6 oz) 10/10/2018 11:29 AM EST Height 166 cm (5' 5.35) 10/10/2018 11:29 AM EST Body Mass Index 35.33 10/10/2018 11:29 AM EST documented in this encounter Medications at Time of Discharge Medication Sig Dispensed Refills Start Date End Date tolterodine LA (Detrol LA) 4 mg ER 24 hr capsule Take 4 mg by mouth daily. 01/15/2023 acetaminophen (TYLENOL) 500 mg Tablet Take 1,000 [...] 07/25/2012 09/07/2022 documented as of this encounter Progress Notes * Kamala Mack, RN - 10/10/2018 1:02 PM EST Patient Name: Diamond Gaming Patient Age: 72 y.o. Birthdate: 1945 Admit date: 10/10/2018 Attending Physician: No att. providers found TIME TREATMENT STARTED: 1200 TIME TREATMENT ENDED: 1315 Diamond Gaming, 72 y.o. female with diagnosis of MAEVE is here for infusion of Venofer. CYCLE: 1 S: Pt. offers no complaints at this time. O: PIV is in place, good blood return Venofer 200 mgs IV over 12 minutes 30 minute observation period REACTIONS (DESCRIPTION, TIME, INTERVENTION AND EFFECTIVENESS) none A: Pt. Tolerated treatment well. Diamond Gaming confirms that all questions and issues have been addressed. P: Return to clinic as scheduled documented in this encounter Plan of Treatment Upcoming Encounters Date Type Department Care Team (Late st Contact Info) Description 11/16/2024 1:00 PM EST Office Visit General Surgery at [place] [phone] Paula Harris PA [facility] [place] [address] 01/26/2025 9:50 AM EDT Appointment Mammography/[place] [phone] Joan Deutsch APRN [facility] [place] [address] 01/26/2025 10:50 AM EDT Office Visit [place] [address] Joan Deutsch INDEPENDENT PRODUCER [facility] GENER[place] [address] documented as of this encounter Visit Diagnoses Diagnosis Iron deficiency anemia, unspecified iron deficiency anemia type documented in this encounter Administered Medications Inactive Administered Medications - up to 3 most recent administrations Medication Order MAR Action Action Date Dose Rate Site iron sucrose (VENOFER) injection 200 mg 200 mg, Intravenous, ONCE, 1 dose, On Sat10/10/18 at 1215, Administer over 5 Minutes, Week 1 Infusion, Outpatient Transfusion Given 10/10/2018 12:24 PM EST 200 mg documented in this encounter Care Teams Welder Relationship Specialty Start Date End Date Mariluz Watts MD [address] [place] [address] PCP - General 08/22/10 documented as of this encounter
--- OUTSIDE RECORDS SUMMARY | 2024-05-18 19:57 | XMS_ITS | Encounter Summary ---
[place] [address] Care Team Providers Care Apricot Packer Name Role Phone Mariluz Watts MD Primary Care Provider [phone] Encounter Details Date Type Department Care Team (Latest Contact Info) Description 11/28/2018 10:16 AM EST - 11/28/2018 10:20 AM [facility] Hospital Encounter Hematology [place] [address] Discharge Disposition: Home Social History Tobacco Use [...] EST Office Visit [place] [address] Paula Harris PA [facility] [place] [address] 01/26/2025 9:50 AM EDT Appointment Mammography/DXA at [place] [phone] Joan Deutsch APRN [facility] [place] [address] 01/26/2025 10:50 AM EDT Office Visit General Surgery at [place] [phone] Joan Deutsch APRN [facility] [place] [address] documented as of this encounter Procedures Procedure Name Priority Date/Time Associated Diagnosis Comments HEPATITIS C ANTIBODY Routine 11/28/2018 10:20 AM EST HEPATITIS B CORE ANTIBODY, TOTAL Routine 11/28/2018 10:20 AM EST HEPATITIS B SURFACE ANTIBODY Routine 11/28/2018 10:20 AM EST HEPATITIS B SURFACE ANTIGEN Routine 11/28/2018 10:20 AM EST documented in this encounter Results * Hepatitis C Antibody (11/28/2018 10:20 AM EST) Hepatitis C Antibody Negative Negative [facility] Blood specimen (specimen) Venous Draw / Unknown 11/28/2018 10:20 AM EST 11/28/2018 10:51 AM EST Narrative Resulting Agency Comment Spec In Lab Mariluz Watts MD CHEMISTRY ORDERABLES Performing Organization Address City/[facility]/ZIP Co de Phone Number [facility] [place] [address] * Hepatitis B Core Antibody, Total (11/28/2018 10:20 AM EST) Hepatitis B Core Antibody Negative Negative [facility] Blood specimen (specimen) Venous Draw / Unknown 11/28/2018 10:20 AM EST 11/28/2018 10:51 AM EST Narrative Resulting Agency Comment Spec In Lab Mariluz Watts MD CHEMISTRY ORDERABLES Performing Organization Address City/[facility]/ZIP Co de Phone Number [facility] [place] [address] * Hepatitis B Surface Antibody (11/28/2018 10:20 AM EST) Hepatitis B Surface Antibody, Quantitative 6.5 IU/L [facility] Comment: HepB Surface Ab Quant: Unvaccinated: < 8.5 IU/L Vaccinated: > 11.5 IU/L Hepatitis B Surface Antibody Negative [facility] Comment: Patient is presumed to be not vaccinated or immune to HBV infection. Expected Results: Vaccinated: Positive Unvaccinated: Negative Blood specimen (specimen) Venous Draw / Unknown 11/28/2018 10:20 AM EST 11/28/2018 10:51 AM EST Narrative Resulting Agency Comment Spec In Lab Mariluz Watts MD CHEMISTRY ORDERABLES Performing Organization Address City/[facility]/ZIP Co de Phone Number [facility] [place] [address] * Hepatitis B Surface Antigen (11/28/2018 10:20 AM EST) Hepatitis B Surface Antigen Negative Negative [facility] Blood specimen (specimen) Venous Draw / Unknown 11/28/2018 10:20 AM EST 11/28/2018 10:51 AM EST Narrative Resulting Agency Comment Spec In Lab Mariluz Watts MD CHEMISTRY ORDERABLES Performing Organization Address City/[facility] Co de Phone Number [facility] [place] [address] documented in this encounter Visit Diagnoses Not on filedocumented in this encounter Care Teams Apricot Packer Relationship Specialty Start Date End Date Mariluz Watts MD [address] [place] [address] PCP - General 08/22/10 documented as of this encounter
--- OUTSIDE RECORDS SUMMARY | 2024-05-18 19:57 | XMS_ITS | Encounter Summary ---
Author Organization [facility] [place] [place] [address] Care Team Providers Care Sprinkling Truck Driver Name Role Phone Mariluz Watts MD Primary Care Provider [phone] Reason for Visit * Reason Comments Advice Only left hand Dupuytrens Encounter Details Date Type Department Care Team (Latest Contact Info) Description 05/01/2018 11:15 AM EDT Office [place] [address] Kne Mosqueda MD [facility] [place] [address] Other secondary osteoarthritis of first carpometacarpal joint of left hand Social History Tobacco Use Types Packs/Day Years [...] as of this encounter Progress Notes * Ken Mosqueda MD - 05/01/2018 11:15 AM EDT Plastic Surgery Consultation Note PCP: Mariluz Watts MD CC: Dupuytren's contracture, OA thumb HPI: Diamond Gaming has noted increasing contracture of her left hand. She is aware of a family history of Dupuytren's contracture. Her brothers have been treated for this in the past. Her thumb is quite sore for her. She feels limited in the dexterity of her hands, she feels they are clumsy. 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 She is interested in obtaining a brace to stabilize her thumb to manage arthritic pain. I have reviewed and updated her meds, allergies, problem list, medical hx, surgical hx, and family hx as well as her initial intake hand questionnaire. Pertinent findings to emphasize are: myD-H Hand 07/13/2014 VR12 - Physical Component Summary 36.82 VR12 - Mental Component Summary 52.9 Physical Exam: Healthy looking, in no acute distress. 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 I reviewed options for management of Dupuytren's including surgical fasciectomy, needle aponeurotomy or collagenase injection. We reviewed her physical findings, their implications and reviewed the basic pathophysiology and possible contributing factors to Dupuytren's disease. We talked about the natural evolution of the disease and it's unpredictable nature. We talked about risk and recovery profiles of surgery, NA and collagenaseinjection should she opt to puruse a treatment now or in the future. The possible risks include: digital nerve injury, infection, incomplete correction of the disease, tendon injury/rupture and disease recurrence (50% at 5 yrs for surgery and 50% at 3 yrs for NA). The progression of this is not linear; she may experience worsening or it may plateau. We discussed the practice of radiation therapy,which can be used to reduce the scar tissue associated with contracture. Our goal is to allow her to go about her daily activities without pain. I feel that Dupuytren's contracture will not be an issue for her, it is quite mild. The triggering of her left long finger can be addressed at any time. She can be provided with a brace to keep the fingers in a straight position while she sleeps. In regard to her osteoarthritis of the left thumb, I have recommended she use a soft splint during the day to support the thumb. I explained that pain will likely plateau once stiffness increases in the thumb joint. Mobility will decrease, but pain will reduce. This will take time. Steroid injection can be performed if pain is severe. She will obtain a soft brace today, and follow up if concerns worsen or if she would like to consider proceeding with any of the above options. I will communicate my recommendations to Mariluz Watts MD. Plan: Follow up PRN Prescription provided for soft brace today I, Jory Mchugh, have performed the documentation for this encounter in the presence of and acting as a scribe for KEN MOSQUEDA MD. I performed the services which were documented by the scribe, and I agree with the accuracy of thedocumentation in this encounter. KEN MOSQUEDA MD. documented in this encounter Plan of Treatment Upcoming Encounters Date Type Department Care Team (Late st Contact Info) Description 11/16/2024 1:00 PM EST Office [place] [phone] Paula Harris PA [facility] GENERAL SURGERY [place], [place] [phone] 01/26/2025 9:50 AM EDT Appointment Mammography/[place] [address] Joan Deutsch, GE [facility] [place] [address] 01/26/2025 10:50 AM EDT Office [place] [address] Joan Deutsch [facility] [place] [address] documented as of this encounter Visit Diagnoses Diagnosis Other secondary osteoarthritis of first carpometacarpal joint of left hand documented in this encounter Care Teams Sprinkling Truck Driver Relationship Specialty Start Date End Date Mariluz Watts MD [address] [place] [address] PCP - General 08/22/10 documented as of this encounter
--- OUTSIDE RECORDS SUMMARY | 2024-05-18 19:57 | XMS_ITS | Encounter Summary ---
[place] [address] Care Team Providers Care Embossing Machine Tender Name Role Phone Mariluz Watts MD Primary Care Provider Reason for Visit * Reason Comments Ptosis * Consultation (Routine) - Closed Specialty Diagnoses / Procedures Referred By John lyons Referred To Contact Ophthalmology Diagnoses eyelid disorder/needs a visual field done Mariluz Watts MD [address] [place] [address] Debbi Green MD [facility] [place] [address] Referral ID Status Reason Start Date Expiration Date V isits Requested Visits Authorized [id number] Closed Consult, Test & Treat 02/09/2019 02/09/2020 1 1 Encounter Details Date Type Department Care Team (Latest Contact Info) Description 02/11/2019 7:30 AM EDT Office [place] [address] Debbi Green MD [facility] [place] [address] Dermatochalasis of both upper eyelids Social History [...] Progress Notes * Debbi Green MD - 02/11/2019 7:30 AM EDT Images from the original note were not included. Encounter Diagnosis Name Primary? Dermatochalasis of both upper eyelids iDamond Gaming, a 73 y.o. female with the following problem(s): 1. Dermatochalasis of bilateral upper eyelids: causing obstruction of vision and affecting activities of daily living. Visually significant superior field loss of both eyes was demonstrated by Goldmann visual traylor, with 30-40 degrees of improvement noted with eyelid taping. Recommend repair with dermatochalasis excision OU. - Discussed risks, benefits, and alternatives to procedure including risk of bleeding, infection, recurrence, and need for more surgery and Diamond expressed understanding. - Surgical orders entered - Surgical consent signed - pre-operative information packet given - surgical coordination initiated - Call with any problems or questions. - Findings and concerns discussed with Diamond and she expressed understanding. FOLLOW UP - schedule for surgery Photo(s) taken by Debbi Green MD with patient's verbal permission for use for clinical and education purposes documented in this encounter Plan of Treatment Upcoming Encounters Date Type Department Care Team (Late st Contact Info) Description 11/16/2024 1:00 PM EST Office [place] [address] Paula Harris PA [facility] [place] [address] 01/26/2025 9:50 AM EDT Appointment Mammography/DXA at [facility] [place] [address] Joan Deutsch, [facility] [place] [address] 01/26/2025 10:50 AM EDT Office Visit General Surgery at [facility] [place] [address] Joan Deutsch, [facility] DR [facility] [place] [address] documented as of this encounter Procedures Procedure Name Priority Date/Time Associated Diagnosis Comments BLEPHAROPLASTY UPPER, W/ EXCESS SKIN, ANDRES Routine 02/11/2019 9:14 AM EDT Dermatochalasis of both upper eyelids EXTERNAL PHOTOGRAPHY - OU - BOTH EYES Routine 02/11/2019 9:13 AM EDT Dermatochalasis of both upper eyelids GOLDMANN VISUAL FIELD - INTERMEDIATE - OU- BOTH EYES Routine 02/11/2019 9:13 AM EDT Dermatochalasis of both upper eyelids documented in this encounter Results * EXTERNAL PHOTOGRAPHY - OU- BOTH EYES (02/11/2019 9:13 AM EDT) Anatomical Region Laterality Modality Other Narrative 02/11/2019 9:13 AM EDT Right Eye Findings include dermatochalasis. Left Eye Findings include dermatochalasis. Debbi Green MD OPHTHALMOLOGY SERVIC ES ORDERABLES * GOLDMANN VISUAL FIELD - INTERMEDIATE - OU- BOTH EYES (02/11/2019 9:13 AM EDT) Anatomical Region Laterality Modality Other Narrative 02/11/2019 9:13 AM EDT Right Eye Reliability was good. Left Eye Reliability was good. Notes OD: superior visual field defect within 15 degrees of fixation, improves 40 degrees with lid taping OS: superior visual field defect within 25 degrees of fixation, improves 30 degrees with lid taping Debbi Green MD OPHTHALMOLOGY SERVIC ES ORDERABLES documented in this encounter Visit Diagnoses Diagnosis Dermatochalasis of both upper eyelids documented in this encounter Care Teams Embossing Machine Tender Relationship Specialty Start Date End Date Mariluz Watts MD [address] [place] [address] PCP - General 08/22/10 documented as of this encounter
--- OUTSIDE RECORDS SUMMARY | 2024-05-18 19:57 | XMS_ITS | Encounter Summary ---
[place] [address] Care Team Providers Care Industrial Safety Engineer Name Role Phone Mariluz Watts MD Primary Care Provider [phone] Encounter Details Date Type Department Care Team (Latest Contact Info) Description 11/28/2018 9:53 AM EST - 11/28/2018 10:15 AM [facility] Hospital Encounter Hematology [place] [address] Iron deficiency anemia, unspecified iron deficiency anemia [...] PM EST Office Visit General Surgery at [place] [phone] Paula Harris PA [facility] [place] [address] 01/26/2025 9:50 AM EDT Appointment Mammography/DXA at [place] [phone] Joan Deutsch APRN [facility] [place] [address] 01/26/2025 10:50 AM EDT Office [place] [phone] Joan Deutsch APRN [facility] [place] [address] (work) documented as of this encounter Procedures Procedure Name Priority Date/Time Associated Diagnosis Comments SCAN, PERIPHERAL BLOOD Routine 11/28/2018 10:20 AM EST HEMOGRAM Routine 11/28/2018 10:20 AM EST Iron deficiency anemia, unspecified iron deficiency anemia type DIFFERENTIAL, AUTOMATED Routine 11/28/2018 10:20 AM EST Iron deficiency anemia, unspecified iron deficiency anemia type CBC (WITH DIFF) Routine 11/28/2018 10:20 AM EST Iron deficiency anemia, unspecified iron deficiency anemia type FERRITIN Routine 11/28/2018 10:20 AM EST Iron deficiency anemia, unspecified iron deficiency anemia type documented in this encounter Results * Scan, Peripheral Blood (11/28/2018 10:20 AM EST) Plat estimate Normal [facility] RBC Morphology Abnormal [facility] Microcyte 1-5 /HPF [facility] Ovalocytes 1-5 /HPF [facility] Tear Cell 1-5 /HPF [facility] Chester Cells 1-5 /HPF [facility] Blood specimen (specimen) 11/28/2018 10:20 AM EST 11/28/2018 10:31 AM EST Narrative Resulting Agency Comment Spec In Lab Alvin Sin MD HEMATOLOGY ORDERABLE S [facility] [place] [address] * Differential, Automated (11/28/2018 10:20 AM EST) Neutrophil % 54.8 % [facility] Neutrophil Absolute 2.86 1.70 - 6.10 x10(3)/[facility] Lymph % 31.4 % [facility] Lymphocytes Abs 1.6 0.9 - 3.2 x10(3)/[facility] Monocyte % 11.1 % [facility] Monocyte Abs 0.6 0.3 - 0.9 x10(3)/[facility] Eos % 1.5 % [facility] Eosinophils Abs 0.1 0.0 - 0.4 x10(3)/[facility] Basophil % 1.0 % [facility] Baso Absolute 0.0 0.0 - 0.1 x10(3)/[facility] Immature Gran % 0.20 % [facility] Comment: Immature granulocytes(IG's)percentage and absolute count will include metamyelocytes, myelocytes, and promyelocytes. Blood smears from CBCs yielding IG's will be scanned manually for concordance. If this scan disagrees with the automated IG or if promyelocytes are noted, a manual differential will be performed. Immature Gran Absolute 0.01 0.00 - 0.04 x10(3)/[facility] Blood specimen (specimen) 11/28/2018 10:20 AM EST 11/28/2018 10:31 AM EST Narrative Resulting Agency Comment Spec In Lab Alvin Sin MD HEMATOLOGY ORDERABLE S Performing Organization Address City/State/[facility] Co de Phone Number [facility] [place] [address] * (ABNORMAL) Hemogram (11/28/2018 10:20 AM EST) White Blood Cell 5.2 4.0 - 9.5 x10(3)/ L [facility] Red Blood Cell 5.74(H) 4.00 - 5.21 x10(6)/[facility] Hemoglobin 14.1 11.7 - 15.5 gm/dL [facility] Hematocrit 45.0 35.7 - 45.8 % [facility] Mean Cell Volume 78.4(L) 82.6 - 94.[address] [facility] Mean Cell Hemoglobin 24.6(L) 27.1 - 32.[address] [facility] Mean Cell Hemoglobin Concentration 31.3(L) 31.7 - 35.0 gm/dL [facility] Platelet 228 145 - 357 x10(3)/mc L [facility] RDW Standard Deviation 64.1(H) 37.0 - 46.[address] [facility] RDW coefficient of variation 23.2(H) 11.5 - 14.1 % [facility] Mean Platelet Volume 11.4 7.6 - 12.[address] [facility] NRBC% auto 0.0 % [facility] NRBC Absolute 0.000 0.000 - 0.000 x10(3)/mc L [facility] Blood specimen (specimen) 11/28/2018 10:20 AM EST 11/28/2018 10:31 AM EST Narrative Resulting Agency Comment Spec In Lab Alvin Sin MD HEMATOLOGY ORDERABLE S Performing Organization Address City/[facility] Co de Phone Number [facility] [place] [address] * Ferritin (11/28/2018 10:20 AM EST) [facility] Signature Ferritin 110 30 - 400 ng/mL [facility] Comment: Pediatric reference ranges not verified at [facility], interpret with caution. Reference ranges for females greater than 50 years of age approach values for men, i.e., 30-400 ng/mL. Blood specimen (specimen) 11/28/2018 10:20 AM EST 11/28/2018 10:35 AM EST Narrative Resulting Agency Comment Spec In Lab Charity De La Cruz MD CHEMISTRY ORDERABL ES Performing Organization Address City/[facility]/ZIP Co de Phone Number [facility] [place] [address] documented in this encounter Visit Diagnoses Diagnosis Iron deficiency anemia, unspecified iron deficiency anemia type documented in this encounter Care Teams Industrial Safety Engineer Relationship Specialty Start Date End Date Mariluz Watts MD [address] [place] [address] PCP - General 08/22/10 documented as of this encounter
--- OUTSIDE RECORDS SUMMARY | 2024-05-18 19:57 | XMS_ITS | Encounter Summary ---
[place] [address] Care Team Providers Care Manager Philosophy Name Role Phone Mariluz Watts MD Primary Care Provider [phone] Reason for Visit * Reason Comments IV Medication Encounter Details Date Type Department Care Team (Latest Contact Info) Description 10/24/2018 6:58 AM EST - 10/24/2018 11:59 PM EST Hospital Encounter Hematology [place] [address] Iron deficiency anemia, unspecified iron deficiency anemia [...] Sign Reading Time Taken Comments Blood Pressure 133/62 10/24/2018 9:48 AM EST Pulse 73 10/24/2018 9:48 AM EST Temperature 36.5 ??C (97.7 ??F) 10/24/2018 9:48 AM ES T Respiratory Rate 17 10/24/2018 9:48 AM EST Oxygen Saturation 98% 10/24/2018 9:48 AM EST Inhaled Oxygen Concentration - - Weight - - Height - - Body Mass Index - - documented in this encounter Medications at Time of Discharge Medication Sig Dispensed Refills Start Date End Date tolterodine LA (Detrol LA) 4 mg ER 24 hr capsule Take 4 mg by mouth daily. 01/15/2023 traMADol (ULTRAM) 50 mg Tablet Take 50 mg by mouth every 6 hours as needed for Pain. 12/26/2018 DULoxetine (CYMBALTA) 60 mg Capsule, Delayed Release(E.C.) Take 60 mg by mouth daily. 11/06/2018 acetaminophen (TYLENOL) 500 mg Tablet Take 1,000 [...] as of this encounter Progress Notes * GraderCleo RN - 10/24/2018 10:26 AM EST TIME TREATMENT STARTED: 934 TIME TREATMENT ENDED: 1040 Diamond Gaming, 72 y.o. female with diagnosis of MAEVE is here for venofer. PROTOCOL: no CYCLE: week 3 WEEK: DAY: S: Pt. offers no complaints. 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 Tolerated treatment well. Diamond Gaming confirms that all questions and issues have been addressed. P: Return to clinic per routine. Observed for 30 minutes documented in this encounter Plan of Treatment Upcoming Encounters Date Type Department Care Team (Late st Contact Info) Description 11/16/2024 1:00 PM EST Office Visit General Surgery at [place] [phone] Paula Harris PA [facility] [place] [address] 01/26/2025 9:50 AM EDT Appointment Mammography/[place] [address] Joan Deutsch MOTOR TEACHER [facility] [place] [address] 01/26/2025 10:50 AM EDT Office Visit General Surgery at [place] [phone] Joan Deutsch MOTOR TEACHER [facility] [place] [address] documented as of this encounter Visit Diagnoses Diagnosis Iron deficiency anemia, unspecified iron deficiency anemia type documented in this encounter Administered Medications Inactive Administered Medications - up to 3 most recent administrations Medication Order MAR Action Action Date Dose Rate Site iron sucrose (VENOFER) injection 200 mg 200 mg, Intravenous, ONCE, 1 dose, On Sat10/24/18 at 0930, Administer over 5 Minutes, Week 2 Infusion, Outpatient Transfusion Given 10/24/2018 9:51 AM EST 200 mg documented in this encounter Care Teams Manager Philosophy Relationship Specialty Start Date End Date Mariluz Watts MD [address] [facility] [place] [address] PCP - General 08/22/10 documented as of this encounter
--- OUTSIDE RECORDS SUMMARY | 2024-05-18 19:57 | XMS_ITS | Encounter Summary ---
Author Organization [facility] [place] [address] Care Team Providers Care Spa Concierge Name Role Phone Mariluz Watts MD Primary Care Provider [phone] Reason for Visit * Reason Comments Skin Lesion Encounter Details Date Type Department Care Team (Late st Contact Info) Description 08/14/2018 11:30 AM EST Office Visit Dermatology at [facility] [address] [place] [address] Gardenia Cruz MD [facility] [place] [address] Florina Lechuga PA [facility] [place] [address] Lentigines; Seborrheic keratoses; Seborrheic keratosis, inflamed; Blue nevus; Sebaceous hyperplasias of face; Rosacea Social History Tobacco Use Types Packs/Day [...] this encounter Patient Instructions * Patient Instructions* Sinai Sorenson - 08/14/2018 11:30 AM EST Inflamed Seborrheic Keratoses You have been diagnosed today with Inflamed Seborrheic Keratosis (ISK). These lesions are benign and have no risk of turning into a skin cancer. Due to their bothersome nature, ISK's are usually treated. You were treated today with Liquid Nitrogen. This is the most common treatment for ISK's. Liquid nitrogen is extremely cold, and freezes the surface of the skin, causing the lesion to flake off. Treatment with liquid nitrogen can be uncomfortable, but discomfort should subside after a couple of hours. The area treated will look red and irritated, and it may blister up or turn dark, then fall off.This is normal! You do not need any special treatment for the area, but you may find cold compresses and/or a lightapplication of Vaseline soothing. For best results, do not rub or pick at the healing lesion. Expected healing time is 3-4 weeks. Please contact the Dermatology clinic at [phone] if the lesion has not fully resolved after 6 weeks. documented in this encounter Progress Notes * Florina Lechuga PA - 08/14/2018 11:30 AM EST Images from the original note were not included. DERMATOLOGY - NEW PATIENT CONSULT NOTE Date of service: 08/14/2018 Diamond Gaming : 1945, 72 y.o. CC: Chief Complaint Patient presents with ??? Skin Lesion HPI: Diamond Gaming is a 72 y.o. female self-referred for a neck up exam with a lesion on the left jawline of concern. Denies bleeding or tenderness of this lesions. Denies prior treatments. She has well-controlled rosacea, but metrogel is $500 and she cannot afford it. She also has some spots on her arms she would like evaluated. Denies itching, bleeding, or tenderness of any of these brown lesions on her arms. Denies prior treatments. Relevant Skin History: - Okay to leave detailed message with results? 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 diaZEPam (VALIUM) 2 mg Tablet Take 2 mg by mouth nightly as needed for Anxiety. ??? ibuprofen (ADVIL;MOTRIN) 600 mg tablet Take 600 mg by mouth 4 times daily. ??? cholecalciferol, Vitamin D3, (VITAMIN D) 1,000 unit Tab tablet Take 1 tablet by mouth daily. 60tablet 5 No current facility-administered medications for this visit. Allergies: Allergies Allergen Reactions ??? Hymenoptera Allergenic Extract Anaphylaxis Bee Stings ??? Tetracyclines Anaphylaxis ??? Plaquenil [Hydroxychloroquine] Rash and Other (See Comments) Hallucinations ??? Trazodone Rash and Other (See Comments) Unsure if hallucinations occur with this or plaquenil. Review of Systems: - General: Feels well. - Skin: No other skin concerns. Examination: - Constitutional: Patient was alert, well-appearing and in no noticeable distress. - Skin: An exam of the skin from the neck up and of the arms was performed. This includes examination of the skin of the face, ears, scalp, neck, and arms. Diagnosis/Skin findings/Assessment/Plan: 1. Inflamed seborrheic keratosis - Left mandible: irritated/excoriated 0.4-0.6cm brown papule with waxy, stuck-on appearance. Milia-like cyst, comedone-like openings and/or fissuring on dermoscopy. Procedure Note: Procedure: Destruction of lesion with cryotherapy. Number: 1 Location: as above Discussed procedure and expectations including risks (including risk of hypopigmentation) and benefits. Verbal consent obtained. Frozen with LN2, 15-30 second thaw time, TWICE. There were no complications; the patient tolerated the procedure well. Post-procedure expectations and wound care were reviewed. 2. Rosacea - Clear on exam today. - Rx: Metronidazole 0.75% gel (45g) - Apply to the face twice daily as needed. - Provided patient with a GoodRx coupon for Toñot. 3. Blue nevus - Left lateral cheek: 1mm blue bonilla macule. - Patient reassured of benign nature. - Observe skin for change in color, size or character. Call if such occur. Photo taken (by Juliet Lechuga) and documented with patient consent. 4. Lentigines - Scattered on the forearms and face, including the left brow: 0.3-0.6cm light-brown evenly pigmented, well-demarcated macules. - Patient reassured of benign nature. - Observe skin for change in color, size or character. Call if such occur. 5. Seborrheic keratoses - Left forearm and right cheek: Multiple 0.4-0.6cm brown papules with waxy,stuck-on appearance. Milia-like cysts, comedone-like openings and/or fissuring on dermoscopy. - Patient reassured of benign nature. - Advised patient to call if areas become inflamed or irritated. 6. Sebaceous hyperplasias - Scattered 0.2-0.3cm yellowish papules with central umbilication on the face. - Patient reassured of benign nature. - No treatment necessary. LOS: RTC: PRN Note initiated by Franci Kenyon CMA. I, Sinai Sorenson, have performed the documentation for this encounter in the presence of and acting as a scribe for Florina Lechuga PA-C (Bri). I performed the services which were documented by the scribe, and I agree with the accuracy of the documentation in this encounter. Florina Lechuga PA-C (Bri) Reviewed and signed by Florina Lechuga PA-C [facility] Patient seen in conjunction with staff control panel operator: Gardenia Cruz MD Section of Dermatology [facility] documented in this encounter Plan of Treatment Upcoming Encounters Date Type Department Care Team (Late st Contact Info) Description 11/16/2024 1:00 PM EST Office [place] [address] Paula Harris PA [facility] [place] [address] 01/26/2025 9:50 AM EDT Appointment Mammography/[place] [phone] Joan Deutsch, [facility] [place] [address] 01/26/2025 10:50 AM EDT Office [place] [phone] Joan Deutsch, [facility] [place] [address] documented as of this encounter Visit Diagnoses Diagnosis Lentigines Other dyschromia Seborrheic keratoses Other seborrheic keratosis Seborrheic keratosis, inflamed Inflamed seborrheic keratosis Blue nevus Sebaceous hyperplasias of face Other specified disease of sebaceous glands Rosacea documented in this encounter Care Teams Spa Concierge Relationship Specialty Start Date End Date Mariluz Watts MD [address] [place] [address] PCP - General 08/22/10 documented as of this encounter
--- OUTSIDE RECORDS SUMMARY | 2024-05-18 19:57 | XMS_ITS | Encounter Summary ---
Author Organization [facility] [place] [address] Care Team Providers Care Display And Banner Designer Name Role Phone Mariluz Watts MD Primary Care Provider [phone] Encounter Details Date Type Department Care Team (Late st Contact Info) Description 11/06/2018 1:00 PM EST - 11/06/2018 2:00 PM EST [place] [address] Charisma Aguayo MD [facility] [place] [place] [address] EGD, UPPER GI ENDOSCOPY (WRVU 2.09) Social History Tobacco Use Types Packs/Day Years [...] Sign Reading Time Taken Comments Blood Pressure 139/70 11/06/2018 2:00 PM EST Pulse 87 11/06/2018 1:30 PM EST Temperature 37.2 ??C (99 ??F) 11/06/2018 12:16 PM EST Respiratory Rate 16 11/06/2018 2:00 PM EST Oxygen Saturation 95% 11/06/2018 2:00 PM EST Inhaled Oxygen Concentration - - [...] better as expected. Saturday-Saturday Same Day Endo [phone] 7a-8p Otherwise contact [phone] and ask to speak to the bearing grinder building stonecutter Follow-up care is a hanna part of [...] PM EST Office [place] [address] Paula Harris PA [facility] [place] [address] 01/26/2025 9:50 AM EDT Appointment Mammography[place] [address] Joan Deutsch APRN [facility] SUR[facility] [place], [place] [phone] 01/26/2025 10:50 AM EDT Office [place] [address] Joan Deutsch, GE [facility] [place] [address] documented as of this encounter Procedures Procedure Name Priority Date/Time Associated Diagnosis Comments EGD, UPPER GI ENDOSCOPY (WRVU 2.09) 11/06/2018 1:07 PM EST Anemia UPPER GI ENDOSCOPY Routine 11/06/2018 12 :33 PM EST documented in this encounter Results * UPPER GI ENDOSCOPY (11/06/2018 12:33 PM EST) [facility] UPPER GI ENDOSCOPY [facility] Endoscopy Procedure Date: 11/06/2018 12:33 PM ? Patient Name: Diamond Gaming ? Date of : 1945 ? Age: 72 ? Order #: [id number] ? Instrument Name: [id number] ? Procedure: ? Upper GI endoscopy Indications: [...] Action Action Date Dose Rate Site fentaNYL 50 mcg/mL multi-dose injection ONCE PRN, Starting on Lizz 11/06/18 at 1312, Until Lizz 11/06/18 at 1717, Intra-Operative (Intra-Procedure), Routine Given 11/06/2018 1:19 PM EST 25 mcg Left Arm Given 11/06/2018 1:16 PM EST 50 mcg Le ft Arm Given 11/06/2018 1:12 PM EST 50 mcg Le ft Arm lactated Ringers infusion 100 mL/hr, Intravenous, CONTINUOUS, Starting on Lizz 11/06/18 at 1230, Until Lizz 11/06/18 at 1447, Day of Surgery (Day of Procedure) New Bag 11/06/2018 12:30 PM EST 100 mL/hr 100 mL/hr midazolam (PF) (VERSED) multi-dose injection ONCE PRN, Starting on Lizz 11/06/18 at 1312, Until Lizz 11/06/18 at 1717, Intra-Operative (Intra-Procedure), Routine Given 11/06/2018 1:22 PM EST 0.5 mg Left Arm Given 11/06/2018 1:19 PM EST 0.5 mg Le ft Arm Given 11/06/2018 1:16 PM EST 1 mg Le ft Arm ondansetron (ZOFRAN) injection 4 mg 4 mg, Intravenous, EVERY 8 HOURS PRN, Starting on Lizz 11/06/18 at 1256, Until Lizz 11/06/18 at 1447, Nausea, Endoscopy (Intra-Procedure) Given 11/06/2018 1:12 PM EST 4 mg Left Arm documented in this encounter Active and Recently [...] on Lizz 19 at 1312, Until Lizz 19 at 1717, Intra-Operative (Intra-Procedure), Routine 1312 (Given [...] Donis RN)1319 (Given - Provider: Ken Donis RN)1322 (Given - Provider: Ken Donis RN) ondansetron (ZOFRAN) injection 4 mg (CANCELED) 4 mg, Intravenous, EVERY 8 HOURS PRN, Starting on Lizz 11/06/18 at 1256, Until Lizz 11/06/18 at 1447, Nausea, Endoscopy (Intra-Procedure) 1312 (Given - Provid er: Ken Donis RN) documented in this encounter Care Teams Display And Banner Designer Relationship Specialty Start Date End Date Mariluz Watts MD [address] [facility] [address] [place] [address] PCP - General 08/22/10 documented as of this encounter
--- OUTSIDE RECORDS SUMMARY | 2024-05-18 19:57 | XMS_ITS | Encounter Summary ---
Author Organization [facility] [address] Care Team Providers Care Mobile Heavy Equipment Mechanic Name Role Phone Mariluz Watts MD Primary Care Provider [phone] Encounter Details Date Type Department Care Team (Late st Contact Info) Description 09/18/2018 12:15 PM EST [place] [phone] Social History Tobacco Use Types Packs/Day Years [...] PM EST Office [place] [phone] Paula Harris, PA [facility] [place] [address] 01/26/2025 9:50 AM EDT Appointment Mammography/[place] [address] Joan Deutsch, [facility] [place] [address] 01/26/2025 10:50 AM EDT Office [place] [phone] Joan Deutsch, [facility] [place] [address] documented as of this encounter Visit Diagnoses Not on filedocumented in this encounter Care Teams Mobile Heavy Equipment Mechanic Relationship Specialty Start Date End Date Mariluz Watts MD [address] [place] [address] [address] [place] [address] PCP - General 08/22/10 documented as of this encounter
--- OUTSIDE RECORDS SUMMARY | 2024-05-18 19:57 | XMS_ITS | Encounter Summary ---
[facility] [place] [address] Care Team Providers Care Stitch Bonding Machine Operator Name Role Phone Mariluz Watts MD Primary Care Provider [phone] Encounter Details Date Type Department Care Team (Late st Contact Info) Description 09/18/2018 11:59 PM EST Anesthesia [place] [phone] Juan Mei MD [facility] [place] [address] Anesthesia Record Procedure Summary Procedure Name Responsible Anesthesiologist Anesthesia Start Time Anesthesia Stop Time OFFICE VISIT Events No events on file. Meds * Agents No agents on file. * Blood No blood administrations on file. Lines, Drains, and Airways No LDAs on file. documented in this encounter Social History Tobacco [...] of this encounter OR Notes * Anesthesia Preprocedure Evaluation - Juan Mei N - 09/18/2018 12:38 PM EST Pre-Anesthesia Evaluation for: Diamond Gaming a 72 y.o. female. Patient Active Problem List Diagnosis ??? Osteoarthritis of midfoot ??? Hallux valgus [...] Anterior ARSLAN- 07/22/12 (Dr. Ervin) Date: Jul 22, 11-11 Surgeon: Kian Ervin MD Surgical Procedure Performed: Injection left hip with 10 cc marcaine 0.25% with epi, into skin and subcutaneous tissues (CPT [id number]) left total hip arthroplasty, anterior Hueter approach with Selma table (CPT code 18518) Left hip intraoperative radiologic examination (CPT code 24367) Amicar infusion (5 g IV load, then 1g/hr x 3 hrs) Components Used: Cardwell Accolade stem, size 4, 127 degrees Trident PSLcup, 52 mm, solid 32 mm ID, alumina 32-4 mm alumina head ??? Hip pain ??? S/P Right ARSLAN 03/06/2005 (Sara) SURGERY DATE: 03/06/2005 SARA STEINER, KIAN Angel Surgical Procedure Performed: Right total hip arthroplasty, cementless, [id number] Components Used: Cardwell Trident 52 shell outer diameter Femoral head 32-4 mm Cardwell Accolade Femoral stem size 4, 127 deg [...] a day ??? Degenerative joint disease ??? Diverticulosis ??? Genetic syndrome hypermobility syndrome ??? GI bleeding 03/25/2011 ??? 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 Motion [...] Last attempt to quit: 09/30/1968 Years since quittin.0 ??? Smokeless tobacco: Never Used Substance Use [...] home medications have been reviewed. Physical Exam: There were no vitals filed for this visit. There is no height or weight on file to calculate BMI. Anesthesia Physical Exam Anesthesia Plan PAT Staff Documentation: Reason for PAT Contact: Decision Support/Risk Assessment Hx of Anesthesia Problem: bleeding perioperatively, bruising history Was Patient Seen in PAT? Yes Additional/Outside Data Requested? Yes Findings, Assessment and Action: 72 y.o. female with history of treated breast cancer as well as an unspecified hypermobility + bleeding disorder presenting for evaluation prior to total knee replacement 10/13/18. 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 Unspecified hypermobility + bleeding diathesis diagnosed by hematologistsback in 2009, unable to find records. Obtained PT/PTT, CBC/BMP today in clinic along with type and screen documented in this encounter Plan of Treatment Upcoming Encounters Date Type Department Care Team (Late st Contact Info) Description 11/16/2024 1:00 PM EST Office Visit General Surgery at [place] [phone] Paula Harris PA [facility] [place] [address] 01/26/2025 9:50 AM EDT Appointment Mammography/DXA at [place] [phone] Joan Deutsch APRN [facility] [place] [address] 01/26/2025 10:50 AM EDT Office Visit General Surgery at [place] [phone] Joan Deutsch DRY MOP MAKER [facility] [place] [address] documented as of this encounter Visit Diagnoses Not on filedocumented in this encounter Care Teams Stitch Bonding Machine Operator Relationship Specialty Start Date End Date Mariluz Watts MD [address] [place] [address] PCP - General 08/22/10 documented as of this encounter
--- OUTSIDE RECORDS SUMMARY | 2024-05-18 19:57 | XMS_ITS | Encounter Summary ---
Author Organization [facility] [place] [address] Care Team Providers Care Account Support Analyst Name Role Phone Mariluz Watts MD Primary Care Provider [phone] Reason for Visit * Reason Comments [facility] Of [facility] bilateral ARSLAN Bilateral Knee Pain Bilateral Foot Pain right foot pain > le ft foot pain Encounter Details Date Type Department Care Team (Latest Contact Info) Description 07/03/2018 11:00 AM EDT Office [place] [address] Cornell Marinelli PA [facility] [place] [address] Hallux valgus of right foot; Osteoarthritis of right midfoot; Primary osteoarthritis of left knee; Status post total replacement of left hip; Status post right hip replacement Social History Tobacco Use Types Packs/Day Years [...] Sign Reading Time Taken Comments Blood Pressure 121/84 07/03/2018 11:06 AM EDT Pulse 96 07/03/2018 11:06 AM EDT Temperature - - Respiratory Rate - - Oxygen Saturation - - Inhaled Oxygen Concentration - - Weight 97.1 kg (214 lb) 07/03/2018 11:06 AM EDT Height 166.4 cm (5' 5.5) 07/03/2018 11:06 AM ED T Body Mass Index 35.07 07/03/2018 11:06 AM EDT documented in this encounter Progress Notes * Cornell Marinelli PA - 07/03/2018 11:00 AM EDT Arthroplasty/Orthopaedic History: 1. Left ARSLAN. Dr. Ervin.07/22/2012. 2. Right ARSLAN. Dr. Ervin. 03/06/2005. 3. Left knee scope. Dr. Ervin. 06/04/2006 HPI: Diamond Gaming is a very pleasant 72 y.o. year-old female and is now 6 and 13 years post bilateral total hip replacement, ceramic on ceramic. The patient has been doing well. She denies groin and thigh pain. She denies hip instability, groin, or thigh pain. The patient is not having any pain..No fevers, chills, nausea, vomiting, or symptoms of infection. Diamond has been ambulating with no assistive device. She is very pleased with her bilateral THAs. She notes continued and chronic left knee pain, and right midfoot pain which I have seen her in thepast before. ROS: Denies: fever, chills, night sweats, nausea, or vomiting BP 121/84 (BP Location (NBP): Left arm, Patient Position: Sitting, BP Cuff Sizes: Adult (25-34 cm)) Pulse 96 Ht 166.4 cm (5' 5.5) Wt 97.1 kg (214 lb) BMI 35.07 kg/m2 Physical Exam: Well-appearing female in no acute distress. Alert and Oriented x 3 and answers all questions appropriately. The incision is well healed, with no signs of infection. I have made the following determinations: Post Op Right Hip Exam: Leg length: Longer leg: equal Limb Length discrepancy: 0cm Motion: Flexion contracture: 0 Total degrees of Flexion:90 Total degrees of Abduction:40 Total degrees of Ext Rotation: 40 Total degrees of Internal Rotation: 20 Gait Abnormality: Normal Pulses Palpable: Right PT: Yes Right DP:Yes Motor/Sensory: Right Distal Motor: Normal Distal Sensory: Normal Hip Abductors 5 Trendelenburg test: negative Post Op Left Hip Exam: Leg Length: Longer leg: equal Limb Length discrepancy: 0cm Motion: Flexion contracture: 0 Total degrees of Flexion: 90 Total degrees of Abduction: 40 Total degrees of Ext Rotation: 40 Total degrees of Internal Rotation: 20 Gait Abnormality: Normal Pulses Palpable: Left PT: Yes Left DP: Yes Motor/Sensory: Left Distal Motor: Normal Distal Sensory: Normal Hip Abductors: 5 Trendelenburg test: negative TTP about the dorsal right midfoot. TTP about medial and anterior left knee. X-RAYS: Multiple radiographic views were obtained at my request and reviewed with the patient. X-rays show a well-placed prosthesis with no evidence of fracture, subsidence, loosening, or periprosthetic complication. No evidence of interval complication. Severe left worse than right knee OA, characterized by joint space narrowing, osteophyte formation, and sclerosis. This is most notable about the right PF joint, the left PF and medial compartments. No fracture, dislocation, or displacement. There is severe right midfoot OA of 1-3 TMT and the navicular cuneiform joints. Questionnaire Responses: [facility] Surgical Postop Visit 07/03/2018 PROMIS-10 General Health Good PROMIS-10 Quality of Life Good PROMIS-10 Physical Health Good PROMIS-10 Mental Health Good PROMIS-10 Social Activity Fair PROMIS-10 Everyday Activities Completely PROMIS-10 Pain 5 PROMIS-10 Fatigue Mild PROMIS-10 Social Roles Good PROMIS-10 Anxious or Depressed Sometimes PROMIS PHYSICAL HEALTH SCORE 47.7 PROMIS MENTAL HEALTH SCORE 41.1 HOOS JR Scores 73.47 ARSLAN Grade 6 Satisfaction with Treatment Somewhat satisfied Choose Same Treatment Again Probably no Orthopeadics [facility] Response 07/03/2018 HOOS JR Scores 73.47 Spine [facility] Response 07/03/2018 HOOS JR Scores 73.47 ASSESSMENT/PLAN: Ms. Gaming is a 72 y.o. year old female status post bilateral total hip replacement. Doing well postoperatively. Continue weightbearing as tolerated and working on range of motion. Wewill see her back in 5 years for repeat examination. X-rays will be needed at that time. Patient may return to normal activities as her pain and function allow. Monitor for infection, continue HEP. In regards to her knees, We discussed the elective management of osteoarthritis treatment. We discussed the arthritis ladder, attempting conservative therapy first with [id number]-yoa-[id number] anti-inflammatories such as ibuprofen or naproxen along with acetaminophen if they can be tolerated. We also discussed attempting formal physical therapy, as that can help keep core and knee musculature strong, inconjunction with focusing on range of motion. We also discussed using walking aids, continue and regular exercise along with maintaining an appropriate weight. The patient is receptive to this. We also discussed corticosteroid injection. Risks and benefits explained including but not limited to steroid flare, increase in blood glucose, infection, continued pain, bleeding, damage to nerves and vessels and can safely be given every 3-4 months. We reviewed the indications of total knee arthroplasty and th elective management of this. We discussed the procedure, recovery, and expectations post-operatively. We reviewed risks and benefits, which include but are not limited to infection, bleeding,damage to nerves and vessels, hardware failure, fracture, dislocation, blood clot, heart attack, stroke, adverse reaction to anesthesia, and continued pain. Patient demonstrates and understanding of the above. She is managing with conservative therapies, and may be interested in injection in the future. The foot is more concerning for her. In regards to her foot: We discussed treatment for the above diagnoses. For her hallux valgus, we recommended wide toe box shoes with toe spacers. Otherwise, consider physical therapy, oral analgesiaextension into inflammatory is tolerated. In regards to conservative management, the above other mainstays, otherwise looking at surgical intervention with Lapidus versus various soft tissue and hardtissue procedures. Patient is receptive to this, she has not interested in being laid up off of herfeet for an extended period of time. We discussed treatment for midfoot osteoarthritis with rigid supportive shoe, anti- inflammatory, Steroid injection, which she explains she has had 5-6 of them. The y helped initially, but the last one did not help. He discussed fusion type surgeries. We discussedshe does have some first MTP osteoarthritis, she may benefit from a steel insert of the forefoot. This is provided in the clinic, she will attempt this and see if this helps. Patient agrees with plan, she will follow-up as needed in the future if she is interested in surgical intervention. I recommend treating whichever is most symptomatic. If she is considering surgical intervention, I recommend an appointment with Dr. Moody. We discussed the appropriate precautions surrounding dental prophylaxis; according to the AAOS Appropriate Use Criteria we do not recommend antibiotic use prior to dental procedures for Diamond. Recommended antibiotic: N/A If Diamond has any changes in health status we recommend she contact our office prior to dental procedures for updated recommendations We also discussed maintaining good foot care and giving prompt attention to any source of infectionthroughout the body including foot ulcers and urinary tract infections. All questions were answered. Signed: MORENA DUVAL 07/03/2018 documented in this encounter Plan of Treatment Upcoming Encounters Date Type Department Care Team (Late st Contact Info) Description 11/16/2024 1:00 PM EST Office [place] [phone] Paula Harris PA [facility] [place] [address] 01/26/2025 9:50 AM EDT Appointment Mammography/[place] [phone] Joan Deutsch APRN [facility] [place] [place] [address] 01/26/2025 10:50 AM EDT Office [place] [phone] Joan Deutsch APRN [facility] [place] [place] [address] documented as of this encounter Visit Diagnoses Diagnosis Hallux valgus of right foot Osteoarthritis of right midfoot Primary osteoarthritis of left knee Primary localized osteoarthrosis, lower leg Status post total replacement of left hip Status post right hip replacement Hip joint replacement by other means documented in this encounter Care Teams Account Support Analyst Relationship Specialty Start Date End Date Mariluz Watts MD [address] [facility] [address] [place] [address] PCP - General 08/22/10 documented as of this encounter
--- OUTSIDE RECORDS SUMMARY | 2024-05-18 19:57 | XMS_ITS | Encounter Summary ---
[place] [address] Care Team Providers Care Bellows Tester Name Role Phone Mariluz Watts MD Primary Care Provider [phone] Encounter Details Date Type Department Care Team (Late st Contact Info) Description 11/28/2018 10:21 AM EST - 11/28/2018 11:59 PM EST Hospital Encounter Mammography/[place] [address] Bella Ly, API ARCHITECT [facility] [place] [address] History of breast cancer Discharge Disposition: Home [...] PM EST Office [place] [phone] Paula Harris PA [facility] [place] [address] 01/26/2025 9:50 AM EDT Appointment Mammography/[place] [phone] Joan Deutsch APRN [facility] [place] [address] 01/26/2025 10:50 AM EDT Office [place] [phone] Joan Deutsch, GE [facility] [place] [address] documented as of this encounter Procedures Procedure Name Priority Date/Time Associated Diagnosis Comments MAMMO SCREENING CAD AND IRVIN BILATERAL Routine 11/28/2018 10:37 AM EST History of breast cancer documented in this [...] BIRADS CATEGORY 2: Benign findings. * ??The [employer] and The Society of [...] report, please contact the number below. ? Bella Ly API ARCHITECT IMG MAMMO ORDERA BLES documented in this encounter Visit Diagnoses Diagnosis History of breast cancer Personal history of malignant neoplasm of breast documented in this encounter Care Teams Bellows Tester Relationship Specialty Start Date End Date Mariluz Watts MD [address] [place] [address] PCP - General 08/22/10 documented as of this encounter
--- OUTSIDE RECORDS SUMMARY | 2024-05-18 19:57 | XMS_ITS | Encounter Summary ---
Author Organization [facility] [place] [address] Care Team Providers Care Prototype Fabricator Name Role Phone Mariluz Watts MD Primary Care Provider [phone] Encounter Details Date Type Department Care Team (Latest Contact Info) Description 09/18/2018 11:40 AM EST Laboratory [place] [phone] Primary osteoarthritis of left knee; Pain in extremity, unspecified extremity Social History [...] PM EST Office [place] [phone] Paula Harris PA [facility] GENERAL SURGERY [place], [place] [phone] 01/26/2025 9:50 AM EDT Appointment Mammography/DXA at [facility] [place] [phone] Joan Deutsch [facility] [place] [address] 01/26/2025 10:50 AM EDT Office Visit General Surgery at [facility] [place] [phone] Joan Deutsch, [facility] [place] [address] documented as of this encounter Procedures Procedure Name Priority Date/Time Associated Diagnosis Comments ABORH RECHECK STATUS Routine 09/18/2018 12:41 PM EST HEMOGRAM Routine 09/18/2018 12:41 PM EST Primary osteoarthritis of left knee DIFFERENTIAL, AUTOMATED Routine 09/18/2018 12:41 PM EST Primary osteoarthritis of left knee TYPE AND SCREEN, SDP (FUTURE SURGERY, [facility] SAME DAY PROGRAM ONLY) Routine 09/18/2018 12:41 PM EST Primary osteoarthritis of left knee IRON AND TIBC Routine 09/18/2018 12:41 PM EST ABO/RH TYPING Routine 09/18/2018 12:41 PM EST Primary osteoarthritis of left knee APTT Routine 09/18/2018 12:41 PM EST Pain in extremity, unspecified extremity Primary osteoarthritis of left knee PROTHROMBIN TIME Routine 09/18/2018 12:4 1 PM EST Pain in extremity, unspecified extremity Primary osteoarthritis of left knee RETICULOCYTE COUNT Routine 09/18/2018 12 :41 PM EST CBC (WITH DIFF) Routine 09/18/2018 12:41 PM EST Primary osteoarthritis of left knee ANTIBODY SCREEN Routine 09/18/2018 12:41 PM EST Primary osteoarthritis of left knee BASIC METABOLIC PANEL Routine 09/18/2018 12:41 PM EST Primary osteoarthritis of left knee documented in this encounter Results * ABORH Recheck Status (09/18/2018 12:41 PM EST) ABORH Type Recheck Completed [facility] Blood specimen (specimen) 09/18/2018 12:41 PM EST 09/18/2018 12:59 PM EST Narrative Resulting Agency Comment Spec In Lab Shekhar Moody MD BLOOD BANK LAB ORDER SALVATORE Performing Organization Address [facility]/ZIP Co de Phone Number [facility] [place] [address] * (ABNORMAL) Reticulocyte Count (09/18/2018 12:41 PM EST) Pathologist [facility] Reticulocyte % 1.5 0.7 - 2.5 % [facility] Retic Abs # 0.060 0.020 - 0.110 x10(6)/mcL [facility] Immature Retic% 18.4(H) 0.5 - 13.8 % [facility] Reticulated Hgb 21.5(L) 29.8 - 39.4 pg [facility] Blood specimen (specimen) Venous Draw / Unknown 09/18/2018 12:41 PM EST 09/18/2018 1:12 PM EST Narrative Resulting Agency Comment Spec In Lab Vic Olivas MD HEMATOLOGY ORDERA BLES Performing Organization Address City/[facility]/ZIP Co de Phone Number [facility] [place] [address] * (ABNORMAL) Iron and TIBC (09/18/2018 12:41 PM EST) Iron 16(L) 30 - 150 mcg/dL [facility] TIBC 490(H) 250 - 450 mcg/dL [facility] Iron Saturation 3(L) 20 - 50 % [facility] Blood specimen (specimen) Venous Draw / Unknown 09/18/2018 12:41 PM EST 09/18/2018 1:19 PM EST Narrative Resulting Agency Comment Spec In Lab Vic Olivas MD CHEMISTRY ORDERAB LES [facility] [place] [address] * Differential, Automated (09/18/2018 12:41 PM EST) Neutrophil % 54.3 % [facility] Neutrophil Absolute 3.10 1.70 - 6.10 x10(3)/[facility] Lymph % 31.1 % [facility] Lymphocytes Abs 1.8 0.9 - 3.2 x10(3)/[facility] Monocyte % 10.0 % [facility] Monocyte Abs 0.6 0.3 - 0.9 x10(3)/[facility] Eos % 3.3 % [facility] Eosinophils Abs 0.2 0.0 - 0.4 x10(3)/[facility] Basophil % 1.1 % [facility] Baso Absolute 0.1 0.0 - 0.1 x10(3)/[facility] Immature Gran % 0.20 % [facility] Comment: Immature granulocytes(IG's)percentage and absolute count will include metamyelocytes, myelocytes, and promyelocytes. Blood smears from CBCs yielding IG's will be scanned manually for concordance. If this scan disagrees with the automated IG or if promyelocytes are noted, a manual differential will be performed. Immature Gran Absolute 0.01 0.00 - 0.04 x10(3)/[facility] Blood specimen (specimen) 09/18/2018 12:41 PM EST 09/18/2018 1:12 PM EST Narrative Resulting Agency Comment Spec In Lab Shekhar Moody MD HEMATOLOGY ORDERABLE S [facility] [place] [address] * (ABNORMAL) Hemogram (09/18/2018 12:41 PM EST) White Blood Cell 5.7 4.0 - 9.5 x10(3)/[facility] Red Blood Cell 4.41 4.00 - 5.21 x10(6)/[facility] Hemoglobin 9.9(L) 11.7 - 15.5 gm/dL [facility] Hematocrit 33.1(L) 35.7 - 45.8 % [facility] Mean Cell Volume 75.1(L) 82.6 - 94.4 fL [facility] Mean Cell Hemoglobin 22.4(L) 27.1 - 32.0 pg [facility] Mean Cell Hemoglobin Concentration 29.9(L) 31.7 - 35.0 gm/dL [facility] Platelet 286 145 - 357 x10(3)/[facility] RDW Standard Deviation 43.3 37.0 - 46.0 fL [facility] RDW coefficient of variation 15.9(H) 11.5 - 14.1 % [facility] Mean Platelet Volume 12.1 7.6 - 12.9 fL [facility] NRBC% auto 0.0 % [facility] NRBC Absolute 0.000 0.000 - 0.000 x10(3)/[facility] Blood specimen (specimen) 09/18/2018 12:41 PM EST 09/18/2018 1:12 PM EST Narrative Resulting Agency Comment Spec In Lab Shekhar Moody MD HEMATOLOGY ORDERABLE S [facility] [place] [address] * Antibody screen (09/18/2018 12:41 PM EST) Ab Screen Interp Negative [facility] Expires at [id number] on: 10/16/2018 [facility] Blood specimen (specimen) 09/18/2018 12:41 PM EST 09/18/2018 12:59 PM EST Narrative Resulting Agency Comment Spec In Lab Shekhar Moody MD BLOOD BANK LAB ORDER SALVATORE [facility] [place] [address] * ABO/Rh Typing (09/18/2018 12:41 PM EST) ABORH Type O Neg [facility] Blood specimen (specimen) 09/18/2018 12:41 PM EST 09/18/2018 12:59 PM EST Narrative Resulting Agency Comment Spec In Lab Shekhar Moody MD BLOOD BANK LAB ORDER SALVATORE Performing Organization Address [facility]/ZIP Co de Phone Number [facility] [place] [address] * APTT (09/18/2018 12:41 PM EST) Partial Thromboplastin Time 35 25 - 37 sec [facility] Comment: The PTT is NOT appropriate for heparin monitoring. Use the Anti-Xa level for heparin monitoring (HEP UFH) or LMWH monitoring (HEP LMW). A PTT less than 37 seconds generally indicates adequate hemostasis. Blood specimen (specimen) 09/18/2018 12:41 PM EST 09/18/2018 1:12 PM EST Narrative Resulting Agency Comment Spec In Lab Shekhar Moody MD HEMATOLOGY ORDERABLE S Performing Organization Address City/[facility]/ZIP Co de Phone Number [facility] [place] [address] * Prothrombin Time (09/18/2018 12:41 PM EST) Prothrombin Time 11.5 9.4 - 12.5 sec [facility] International Normalization Ratio 1.0 [facility] Comment: An INR <2.0 indicates adequate procoagulant activity for hemostasis in most patients without underlying bleeding disorders, though the INR may not adequately reflect hemostatic capacity in patients with liver disease and synthetic impairment. The recommended target INR range for therapeutic anticoagulation is 2.0 ? 3.0 for most applications, though lower and higher ranges may be appropriate depending on clinical circumstances. Blood specimen (specimen) 09/18/2018 12:41 PM EST 09/18/2018 1:12 PM EST Narrative Resulting Agency Comment Spec In Lab Shekhar Moody MD HEMATOLOGY ORDERABLE S [facility] [place] [address] * (ABNORMAL) Basic Metabolic Panel (non-fasting) (09/18/2018 12:41 PM EST) Glucose 94 65 - 199 mg/dL [facility] Comment:Diabetes: >=200 mg/d L plus symptoms Blood Urea Nitrogen 14 8 - 18 mg/dL [facility] Creatinine 0.64(L) 0.70 - 1.20 mg/dL [facility] Sodium 143 135 - 145 mmol/L [facility] Potassium 3.5 3.5 - 5.0 mmol/L [facility] Comment: Please note: ??Patients with WBC >100,000 may have falsely elevated Potassium levels. ??For accurate Potassium quantification in these patients send serum separator tube (gold top) for subsequent determinations. ??Contact the Clinical Chemistry Laboratory if there are any questions. Chloride 106 98 - 107 mmol/L [facility] Carbon Dioxide 25 22 - 31 mmol/L [facility] Anion Gap 12 5 - 15 mmol/L [facility] Calcium 9.5 8.5 - 10.5 mg/dL [facility] Est Glomerular Filtration Rate 90 >=60 mL/min/1. 73 m?? [facility] Comment: The eGFR was calculated using the CKD-EPI equation. As with all creatinine based estimates of kidney function, eGFR values calculated with the CKD-EPI equation are not accurate in patients with acute kidney failure, extremes of body mass or the acutely ill. [email or web address] CITYnkf eGFR 105 >=60 mL/min/1. 73 m?? [facility] Comment: The eGFR was calculated using the CKD-EPI equation. As with all creatinine based estimates of kidney function, eGFR values calculated with the CKD-EPI equation are not accurate in patients with acute kidney failure, extremes of body mass or the acutely ill. [email or web address].[email or web address] Blood specimen (specimen) 09/18/2018 12:41 PM EST 09/18/2018 1:12 PM EST Narrative Resulting Agency Comment Spec In Lab Shekhar Moody MD CHEMISTRY ORDERABLES [facility] [place] [address] documented in this encounter Visit Diagnoses Diagnosis Primary osteoarthritis of left knee Primary localized osteoarthrosis, lower leg Pain in extremity, unspecified extremity documented in this encounter Care Teams Prototype Fabricator Relationship Specialty Start Date End Date Mariluz Watts MD [address] [place] [address] PCP - General 08/22/10 documented as of this encounter
--- OUTSIDE RECORDS SUMMARY | 2024-05-18 19:57 | XMS_ITS | Encounter Summary ---
Author Organization [facility] [place] [address] Care Team Providers Care Professor Of Music Name Role Phone Mariluz Watts MD Primary Care Provider [phone] Encounter Details Date Type Department Care Team (Latest Contact Info) Description 07/03/2018 9:46 AM EDT - 07/03/2018 11:59 PM EDT Hospital Encounter XRay at [address] [place] [address] Shekhar Moody MD [facility] [address] Chronic pain of both knees Discharge Disposition: [...] PM EST Office [place] [phone] Paula Harris PA [facility] [place] [address] 01/26/2025 9:50 AM EDT Appointment Mammography/[place] [phone] Joan Deutsch APRN [facility] [place] [address] 01/26/2025 10:50 AM EDT Office [place] [phone] Joan Deutsch APRN [facility] [place] [address] documented as of this encounter Procedures Procedure Name Priority Date/Time Associated Diagnosis Comments XR KNEE STANDING ALIGNMENT AP LAT [place] SKYLINE BILAT Routine 07/03/2018 10:36 AM EDT Chronic pain of both knees documented in this encounter Results * XR Knee Standing Alignment AP Lat [place] Bilat (07/03/2018 10:36 AM EDT) Anatomical Region Laterality Modality Bilateral Digital Radiogra phy Impressions 07/03/2018 11:08 AM EDT Bilateral tricompartmental degenerative arthropathy, most severely on the LEFT Unchanged loose body in the LEFT suprapatellar pouch Narrative 07/03/2018 11:08 AM EDT EXAMINATION: XR KNEE STANDING ALIGNMENT AP LAT [place] SKYLINE BILAT CLINICAL HISTORY: Bilateral knee pain TECHNIQUE: Separate images of the pelvis, knees and feet were acquired in the AP projection with the patient standing. These images were stitched together to form a composite image of the pelvis and legs allowing for evaluation of lower extremity alignment in the weight bearing position. 4 views both knees COMPARISON: 2011 FINDINGS: Standing alignment: The mechanical axis of the RIGHT lower extremity is normal, the mechanical axis of the LEFT lower extremity is medially deviated 2.1 cm, which is worse than on the patient's prior study. The patient has undergone LEFT total hip arthroplasty since the prior study. Both total hip arthroplasties appear intact on the standing alignment view. LEFT knee: No joint effusion. Ossified loose body in the suprapatellar pouch is seen previously. Severe tricompartmental osteoarthropathy, most severely affecting the medial joint space with joint space narrowing, marginal osteophytes and subchondral sclerosis. No large subchondral cysts. There has been significant worsening since the 2012 study RIGHT knee: Trace joint effusion. Again there is tricompartmental degenerative arthropathy involving the RIGHT knee, most severely affecting the patellofemoral joint with moderate involvement of the medial joint space. Moderate osteophytosis particularly involving the lateral patellofemoral joint. No loose bodies seen. No acute injury Procedure Note Cece Marrero MD - 07/03/2018 EXAMINATION: XR KNEE STANDING ALIGNMENT AP LAT [place] SKYLINE BILAT CLINICAL HISTORY: Bilateral knee pain TECHNIQUE: Separate images of the pelvis, knees and feet were acquired inthe AP projection with the patient standing. These images were stitched togetherto form a composite image of the pelvis and legs allowing for evaluation oflower extremity alignment in the weight bearing position. 4 views both knees COMPARISON: 2011 FINDINGS: Standing alignment: The mechanical axis of the RIGHT lower extremity isnormal, the mechanical axis of the LEFT lower extremity is medially deviated 2.1cm, which is worse than on the patient's prior study. The patient hasundergone LEFT total hip arthroplasty since the prior study. Both total hiparthroplasties appear intact on the standing alignment view. LEFT knee: No joint effusion. Ossified loose body in the suprapatellarpouch is seen previously. Severe tricompartmental osteoarthropathy, most severely affecting the medial joint space with joint space narrowing, marginal osteophytes and subchondral sclerosis. No large subchondral cysts. Therehas been significant worsening since the 2012 study RIGHT knee: Trace joint effusion. Again there is tricompartmentaldegenerative arthropathy involving the RIGHT knee, most severely affecting thepatellofemoral joint with moderate involvement of the medial joint space. Moderate osteophytosis particularly involving the lateral patellofemoral joint. Noloose bodies seen. No acute injury IMPRESSION Bilateral tricompartmental degenerative arthropathy, most severely on theLEFT Unchanged loose body in the LEFT suprapatellar pouch Shekhar Moody MD IMG DX ORDERABLES documented in this encounter Visit Diagnoses Diagnosis Chronic pain of both knees documented in this encounter Care Teams Professor Of Music Relationship Specialty Start Date End Date Mariluz Watts MD [address] [facility] [address] [place] [address] PCP - General 08/22/10 documented as of this encounter
--- OUTSIDE RECORDS SUMMARY | 2024-05-18 19:57 | XMS_ITS | Encounter Summary ---
Author Organization [facility] [place] [address] Care Team Providers Care Digital Campaign Specialist Name Role Phone Mariluz Watts MD Primary Care Provider [phone] Encounter Details Date Type Department Care Team (Latest Contact Info) Description 12/12/2017 12:16 PM EDT - 12/12/2017 11:59 PM EDT Hospital [place] [address] Brayden Chambers MD [facility] [place] [address] History of breast cancer Discharge Disposition: Home [...] Take 4 mg by mouth daily. 01/15/2023 DULoxetine (CYMBALTA) 60 mg Capsule, Delayed Release(E.C.) 12/01/2017 05/01/2018 mirabegron (MYRBETRIQ) 50 mg Tablet Sustained Release 24 hr Take by mouth. 05/01/2018 ALPRAZolam (XANAX) 0.5 mg Tablet 12/07/2016 05/01/2018 [id number] Take 1 tablet by mouth daily. 12/24/2012 05/01/2018 Lysine 500 mg Tablet Take 1 tablet by mouth daily. Reported on 12/11/2016 05/01/2018 multivitamin (THERAGRAN) tablet Take 1 tablet by mouth daily. Reported on 12/11/2016 07/03/2018 ammonium lactate (LAC-HYDRIN) 12 % lotionIndications:SK (seborrheic keratosis) Apply topically as needed for Dry Skin. Use to rough spots on thighs. 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 sisal picker both scripts 02/02/14 400 g 10 02/01/2014 05/01/2018 metroNIDAZOLE (METROGEL) 1 % gelIndications:Rosacea Apply topically daily. 45 g 10 02/01/2014 05/01/2018 amoxicillin-clavulanat e (AUGMENTIN) 500-125 mg per tablet Take 4 tablets by mouth as needed. Reported on 12/11/2016 03/16/2013 05/01/2018 ibuprofen (ADVIL;MOTRIN) 600 mg tablet Take 600 mg by mouth 4 times daily. 11/06/2018 cholecalciferol, Vitamin D3, (VITAMIN D) 1,000 unit Tab tablet Take 1 tablet by mouth daily. 60 tablet 5 07/25/2012 09/07/2022 documented as of this encounter Plan of Treatment Upcoming Encounters Date Type Department Care Team (Late st Contact Info) Description 11/16/2024 1:00 PM EST Office [place] [address] Paula Harris PA [facility] [place] [address] 01/26/2025 9:50 AM EDT Appointment Mammography/[place] [address] Joan Deutsch APRN [facility] [place] [place] [address] 01/26/2025 10:50 AM EDT Office [place] [phone] Joan Deutsch APRN [facility] [place] [address] documented as of this encounter Procedures Procedure Name Priority Date/Time Associated Diagnosis Comments MAMMO SCREENING CAD AND CINDY BILATERAL Routine 12/12/2017 1:00 PM EDT History of breast cancer documented in this encounter Results * Mammo Screen CAD and Cindy Bilat (Generic) (12/12/2017 1:00 PM EDT) Anatomical Region Laterality Modality Breast Bilateral Mammography Narrative 12/13/2017 8:26 AM EDT REASON FOR EXAM: Screening. History of right breast cancer. TECHNIQUE: CC and MLO views were obtained of both breasts. Computer aided detection was used. 3D tomosynthesis images were obtained in addition to 2D images. Comparison: The study is compared with prior images. FINDINGS: Breast density: The breasts are of fatty density. There are no suspicious microcalcifications, masses, or areas of distortion. There are post treatment changes in the right breast. CONCLUSION: No mammographic evidence of malignancy. RECOMMENDATION: Routine annual screening. BIRADS CATEGORY 2: BENIGN FINDINGS * ??The [place] [employer] and The Society of [...] earlier screening and breast MRI are appropriate. Brayden Chambers MD IMG MAMMO ORDERABLES documented in this encounter Visit Diagnoses Diagnosis History of breast cancer Personal history of malignant neoplasm of breast documented in this encounter Care Teams Digital Campaign Specialist Relationship Specialty Start Date End Date Mariluz Watts MD [address] [place] [address] PCP - General 08/22/10 documented as of this encounter
--- OUTSIDE RECORDS SUMMARY | 2024-05-18 19:57 | XMS_ITS | Encounter Summary ---
[facility] [place] [address] Care Team Providers Care Automatic Profile Sander Operator Name Role Phone Mariluz Watts MD Primary Care Provider [phone] Reason for Visit * Reason Comments Follow-up Encounter Details Date Type Department Care Team (Late st Contact Info) Description 12/12/2017 2:00 PM EDT Office Visit Hematology [place] [address] Abrahan Merlos MD [facility] HEMATOLOGY/[place] [address] Malignant neoplasm of right breast, stage 2 [...] Sign Reading Time Taken Comments Blood Pressure 141/74 12/12/2017 1:13 PM EDT Pulse 111 12/12/2017 1:13 PM EDT Temperature 37 ??C (98.6 ??F) 12/12/2017 1:13 PM EDT Respiratory Rate 18 12/12/2017 1:13 PM EDT Oxygen Saturation 98% 12/12/2017 1:13 PM EDT Inhaled Oxygen Concentration - - Weight 97 kg (213 lb 12.8 oz) 12/12/2017 1:12 PM EDT Height 168.3 cm (5' 6.26) 12/12/2017 1:12 PM ED T Body Mass Index 34.24 12/12/2017 1:12 PM EDT documented in this encounter Progress Notes * Abrahan Merlos MD - 12/12/2017 2:00 PM EDT Subjective: Patient ID: Diamond Gaming is a 71 y.o. female with Stage II breast cancer, [...] on May 13, 2015. Interval History: Diamond is bothered by interstitial cystitis, as well as by frequent urinary tractinfections and urinary incontinence. She has continuing arthralgias in her knees (left > right),right foot, and the left thumb, and she has Dupuytrens contractures in the palm of the left hand. She had a sinus infection about six weeks ago and she still has a sore throat. Her stools are loose. She had a migraine headache last month, but otherwise she does not usually have headaches. She worksout at her gym for three hours each week and she has a boxing trainer. She takes 3000 units of Vitamin D daily. Review of Systems She denies breast pain or a palpable breast mass, shortness of breath, chest pain, nausea, vomiting, constipation, double vision, pain, redness, or swelling in her lower extremities, or any other sites of joint or skeletal pain. The remainder of her review of systems is negative. Objective: Physical Exam Constitutional: She appears well-developed and well-nourished. Her weight is down 0.8 kg over the past year, and her BP is 141/74. HENT: Mouth/Throat: Oropharynx is clear and moist. No oropharyngeal exudate. Neck: Neck supple. She has no cervical or supraclavicular adenopathy. Cardiovascular: Normal rate, regular rhythm and normal heart sounds. Exam reveals no gallop. No murmur heard. Pulmonary/Chest: Breath sounds normal. She has no wheezes. She has no rales. She has bilateral mastopexy scars. She has no masses within either the left or the right breast, and she has no axillary adenopathy on either side. Abdominal: Soft. She exhibits no distension and no mass. There is no tenderness. There is no guarding. Musculoskeletal: She exhibits no edema. She has no pain on percussion over the spine, sternum, ribs, or hips. Skin: Skin is warm and dry. No erythema. Psychiatric: She has a normal mood and affect. Vitals reviewed. The most recent 3-D mammograms from December 11, 2016 showed no suspicious microcalcifications, masses, or architectural distortion, with post-treatment changes on the left. The breasts were entirely fatty. The mammograms were repeated today, and the results are pending. The most recent Dexa scan from December 11, 2016 showed T scores of -1.5 in the lumbar spine (down from -1.4 in November 2014), and -1.6 in the left wrist (up from -1.8 in November 2014). The most recent LFTs from December 21, 2014 showed an albumin of 4.8, bili 0.4, alk phos 84, AST 17, and ALT 19. The most recent 25-hydroxy Vitamin D was 42 on December 22, 2013. Assessment and Plan: Ms. Gaming is doing well and has no evidence of breast cancer recurrence. She completed five years of anastrozole more than two years ago. She has some musculoskeletal problems, but she is not interested in any surgical interventions. I will continue to see her once yearly, coordinating my visits with Coral Ly's visits. I will see her next in followup in November of 2018. She knows to contact us in the interim if she has any concerns over her breast exam. I will repeat her Dexa scan in 2019. Abrahan Merlos MD machine shop worker in Hematology-Oncology documented in this encounter Plan of Treatment Upcoming Encounters Date Type Department Care Team (Late st Contact Info) Description 11/16/2024 1:00 PM EST Office Visit [place] [phone] Paula Harris PA [facility] [place] [address] 01/26/2025 9:50 AM EDT Appointment Mammography/[place] [phone] Joan Deutsch APRN [facility] [place] [address] 01/26/2025 10:50 AM EDT Office Visit [place] [address] Joan Deutsch APRN [facility] [place] [address] documented as of this encounter Visit Diagnoses Diagnosis Malignant neoplasm of right breast, stage 2 documented in this encounter Care Teams Automatic Profile Sander Operator Relationship Specialty Start Date End Date Mariluz Watts MD [address] [place] [address] [address] [place] [address] PCP - General 08/22/10 documented as of this encounter
--- OUTSIDE RECORDS SUMMARY | 2024-05-18 19:57 | XMS_ITS | Encounter Summary ---
[place] [address] Care Team Providers Care Radiographic Technologist Name Role Phone Mariluz Watts MD Primary Care Provider Reason for Referral * Diagnostic Test (Routine) - Closed Specialty Diagnoses / Procedures Referred By John lyons Referred To Contact Radiology Diagnoses Primary osteoarthritis of right foot Procedures CT Foot wo Contrast Right (Generic) Daylin Waldrop PA [facility] [address] [place] [address] [facility] [place] [address] Referral ID Status Reason Start Date Expiration Date V isits Requested Visits Authorized [id number] Closed Specialty Service Requested 03/10/2019 03/09/2020 1 1 Reason for Visit * Reason Comments Follow-up right foot pain - di scuss surgery Encounter Details Date Type Department Care Team (Latest Contact Info) Description 03/10/2019 3:30 PM EDT Office [place] [address] Primary osteoarthritis of right foot Social History Tobacco Use Types Packs/Day Years [...] Sign Reading Time Taken Comments Blood Pressure 132/77 03/10/2019 3:31 PM EDT Pulse 80 03/10/2019 3:31 PM EDT Temperature - - Respiratory Rate - - Oxygen Saturation - - Inhaled Oxygen Concentration - - Weight 93 kg (205 lb) 03/10/2019 3:31 PM EDT carl bal Height 165.1 cm (5' 5) 03/10/2019 3:31 PM EDT v erbal Body Mass Index 34.11 03/10/2019 3:31 PM EDT documented in this encounter Progress Notes * Daylin Waldrop PA - 03/10/2019 3:30 PM EDT PATIENT NAME: Diamond Gaming AGE: 73 y.o. MR#: [id number] DATE OF VISIT: 03/10/2019 CHIEF COMPLAINT: FU right foot pain HISTORY OF PRESENT ILLNESS: Ms. Gaming is a 73 y.o. female who comes into clinic today for evaluation of the right foot pain. She was last in to see Dr. Moody on 07/28/2018. At the time she was anticipating undergoing right total knee arthroplasty and later midfoot fusion. She did run into some concerns with her labs and is continuing to be treated for this Her iron was very low .She is being followed by Dr. Riley. She obtained an iron infusion. Her latest labs are scanned into the chart. She continues to have low iron (40). She is scheduled to see Dr. Riley on to review labs. She never did undergo the TKA. She returns to clinic with continued pain and the second and third toes on the plantar surface as well as midfoot as well as ankle pain. She would like to undergo fusion of the right foot in the fall. She is struggling at this point to control her pain as she is not able to take anti- inflammatories anymore. She was taking ibuprofen with good relief however she has had an endoscopy and has a hiatal hernia and is been told that she is not able to take anti-inflammatories. Past medical history: Patient Active Problem List [...] tear (TEARS) Drops ??? multivit with calcium,iron,min ([id number]-HCIT-MINERALS ORAL) ??? omeprazole (PRILOSEC) 20 mg Capsule, [...] Last attempt to quit: 09/30/1968 Years since quittin.4 ??? Smokeless tobacco: Never Used Substance Use Topics ??? Alcohol use: No Review of systems: No chest pain or shortness of breath No fevers, night sweats or chills Vital signs: Most Recent Vitals: 03/10/19 1531 BP: 132/77 Pulse: 80 Assessment and plan:: 73 y.o. year-old female with 2, 3 toe pain as well as midfoot and ankle pain. Plan discussed in conjunction with Dr. Moody. We discussed the continued pain that she is experiencing. She describes to 3 toe pain as well as midfoot pain and ankle pain. At her previous appointments Dr. Edmond had discussed that a midfoot fusionmay be an option however he wanted her to obtain a CT to evaluate which joints were involved. She did not obtain the CT at this point. She has an appointment next week to discuss her latest labs with Dr. Riley in heme-onc. Her iron level is still somewhat low. We discussed today that we would place orders for the CT. She would follow-up in clinic with Dr. Roberson after she had the results of the CT as well as Dr. De La Cruz's note regarding her most recent labs were in. At that point we can evaluate if surgery will be an option and what would best help her discomfort. This plan was discussed with the patient and they are in agreement. All of the patient's questions were answered. The patient understand to contact us if they have any other questions or concerns. FU: With CT Schedulers. FU in Dr. Moody clinic Daylin Waldrop PA-C The above dictation was made with voice recogonition software documented in this encounter Plan of Treatment Upcoming Encounters Date Type Department Care Team (Late st Contact Info) Description 11/16/2024 1:00 PM EST Office [place] [address] Paula Harris PA [facility] [place] [address] 01/26/2025 9:50 AM EDT Appointment Mammography/[place] [address] Joan Deutsch, EDUCATION SPECIALIST [facility] [place] [address] 01/26/2025 10:50 AM EDT Office [place] [phone] Joan Deutsch, EDUCATION SPECIALIST [facility] [place] [address] documented as of this encounter Results * CT Foot wo [...] Diagnoses Diagnosis 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
--- OUTSIDE RECORDS SUMMARY | 2024-05-18 19:57 | XMS_ITS | Encounter Summary ---
[place] [address] Care Team Providers Care Pathology Technician Name Role Phone Mariluz Watts MD Primary Care Provider [phone] Reason for Referral * Consultation (Urgent) - Closed Specialty Diagnoses / Procedures Referred By John lyons Referred To Contact Hematology and Oncology Diagnoses Primary osteoarthritis of left knee Hypochromic microcytic anemia Bleeding diathesis IRON DEFICIENCY ANEMIA Home Olivas MD [facility] [place] [address] [facility] [address] [place] [address] Referral ID Status Reason Start Date Expiration Date V isits Requested Visits Authorized [id number] Closed Consult, Test & Treat Connection Center 09/19/2018 09/19/2019 1 1 Reason for Visit * Reason Comments Pre-op Exam L TKA DOS 10/13/18 Encounter Details Date Type Department Care Team (Latest Contact Info) Description 09/18/2018 10:40 AM EST Office [place] [address] Home Olivas MD [facility] [place] [address] Preop examination; Primary osteoarthritis of left knee; Hypochromic microcytic anemia; Bleeding diathesis Social History Tobacco Use Types Packs/Day Years [...] Sign Reading Time Taken Comments Blood Pressure 142/80 09/18/2018 10:31 AM EST Pulse 84 09/18/2018 10:31 AM EST Temperature - - Respiratory Rate - - Oxygen Saturation 100% 09/18/2018 10:31 AM EST Inhaled Oxygen Concentration - - Weight 95.3 kg (210 lb) 09/18/2018 10:31 AM EST Height 165.1 cm (5' 5) 09/18/2018 10:31 AM EST Body Mass Index 34.95 09/18/2018 10:31 AM EST documented in this encounter Progress Notes * Home Olivas MD - 09/18/2018 10:40 AM EST Images from the original note were not included. CC: Diamond Gaming is a 72 y.o. female new patient to the perioperative clinic with the following problems and medications that is being seen in the clinic for consultation at the request of her surgeon Dr. Shekhar Moody for preoperative risk stratification and management recommendations in anticipation of left total knee arthroplasty for symptomatic OA. HPI - Pain - Location - left knee, Quality - aching, Onset - gradual, Duration - several months, Intensity - mild to moderate Aggravating factors - standing, walking, stepping, bending, Alleviating factors - NSAID, rest, topical, Associated - she has right mid foot pain and intervention on that is deferred to the TKA on this left knee. She has had prior bilateral ARSLAN. She does have pain in them and from OA elsewhere and takes ibuprofen with relief. Patient Active Problem List Diagnosis Code ??? [...] ??? Hallux valgus of right foot M20.11 Current Outpatient Medications Medication Sig Dispense Refill ??? metroNIDAZOLE (METROGEL) 0.75 % Gel Apply [...] No current facility-administered medications for this visit. Social History Occupational History ??? Not on file Tobacco Use ??? Smoking status: Former Smoker Packs/day: 1.00 Years: 3.00 Pack years: 3.00 Types: Cigarettes Last attempt to quit: 09/30/1968 Years since quittin.0 ??? Smokeless tobacco: Never Used Substance and Sexual Activity ??? Alcohol use: No ??? Drug use: No ??? Sexual activity: No Family History Problem Relation Age of Onset ??? Prostate Cancer Paternal Grandfather ??? Breast Cancer Other 80's ??? Breast Cancer Other Review of Systems Constitutional: Negative for chills, diaphoresis and fever. Hot flash intensity and frequency are significantly lower than prior. Respiratory: Negative for cough, shortness of breath and wheezing. Cardiovascular: Negative for chest pain, palpitations and leg swelling. Gastrointestinal: Negative for abdominal pain, anal bleeding and blood in stool. Endocrine: Negative for polydipsia and polyphagia. Genitourinary: Negative for dysuria, flank pain and hematuria. Skin: Negative for pallor and rash. Allergic/Immunologic: Negative for active environmental allergies and immunocompromised state. Neurological: Negative for presyncope, paresthesia, syncope, swallow and speech difficulty. Hematological: Negative for adenopathy. Does note bruising easily. Psychiatric/Behavioral: Negative for confusion, decreased concentration and dysphoric mood. Allergies: Allergies Allergen Reactions ??? Hymenoptera Allergenic Extract Anaphylaxis Bee Stings ??? Tetracyclines Anaphylaxis ??? Plaquenil [Hydroxychloroquine] Rash and Other (See Comments) Hallucinations ??? Trazodone Rash and Other (See Comments) Unsure if hallucinations occur with this or plaquenil. Physical Exam: Last Set of Vitals and Range over past 24 hours: Last value Range last 24 hrs Temperature Temp: -- Heart Rate Heart Rate: 84 Heart Rate: [84] Blood Pressure BP: 142/80 BP: (142)/(80) Respiratory Rate Resp: -- SpO2 SpO2: 100 % SpO2: [100 %] Estimated body mass index is 34.95 kg/m?? as calculated from the following: Height as of this encounter: 165.1 cm (5' 5). Weight as of this encounter: 95.3 kg (210 lb). Physical Exam Constitutional: She is oriented to person, place, and time. She appears well- developed. No distress. HENT: Head: Normocephalic and atraumatic. Mouth/Throat: Oropharynx is clear and moist. Eyes: Right eye exhibits no discharge. Left eye exhibits no discharge. No scleral icterus. Neck: Neck supple. No JVD present. Cardiovascular: Normal rate, regular rhythm and normal heart sounds. Exam reveals no gallop and no friction rub. No murmur heard. Pulmonary/Chest: Effort normal and breath sounds normal. No stridor. No respiratory distress. She has no wheezes. She has no rales. She exhibits no tenderness. Abdominal: Soft. Bowel sounds are normal. She exhibits no mass. There is no tenderness. There is norebound and no guarding. Musculoskeletal: She exhibits no edema. Left knee ROM is 0-110, no drift with extension, ambulatorywith shortened stance. Neurological: She is alert and oriented to person, place, and time. She displays normal reflexes. Skin: Skin is warm and dry. She is not diaphoretic. No pallor. Psychiatric: She has a normal mood and affect. Her behavior is normal. Judgment and thought contentnormal. Lab Results Component Value Date WBC 5.7 09/18/2018 RBC 4.41 09/18/2018 HGB 9.9 (L) 09/18/2018 HCT 33.1 (L) 09/18/2018 MCV 75.1 (L) 09/18/2018 MCH 22.4 (L) 09/18/2018 MCHC 29.9 (L) 09/18/2018 PLATELET 286 09/18/2018 RDWCV 15.9 (H) 09/18/2018 Lab Results Component Value Date NA 143 09/18/2018 K 3.5 09/18/2018 CL 106 09/18/2018 CO2 25 09/18/2018 BUN 14 09/18/2018 CREATININE 0.64 (L) 09/18/2018 GLUCOSE 94 09/18/2018 CALCIUM 9.5 09/18/2018 Lab Results Component Value Date PT 11.5 09/18/2018 INR 1.0 09/18/2018 PTT 35 09/18/2018 Estimated Creatinine Clearance: 93.4 mL/min (A) (based on SCr of 0.64 mg/dL (L)). EKG (image reviewed): Sinus rhythm with Premature supraventricular complexes Left axis deviation Abnormal ECG When compared with ECG of 08-JUL-2012 13:37, Premature supraventricular complexes are nowPresent Xray - severe DJD left knee tricompartmental and medial predominant with varus deviation Colonoscopy: Impression: ?- Diverticulosis in the entire ?examined colon. ?- One 4 mm polyp in the sigmoid ?colon, removed with a cold snare. ?Resected and retrieved. ?- One 3 mm polyp in the rectum, ? removed with a cold snare. Resected ?and retrieved. ?- Internal hemorrhoids. A/P 1. Preop examination 2. Primary osteoarthritis of left knee 3. Hypochromic microcytic anemia Iron and TIBC Reticulocyte Count She is on regular NSAID with renal function relatively well preserved but has anemia suspicious foriron deficiency, however has no melena, hematochezia or other symptoms of blood loss. Considering her history of bleeding diathesis, the patient requires further evaluation and optimization of her anemia prior to elective surgery. I have placed an add on order for Iron and TIBC and also requested an urgent referral to hematology. She has significant discomfort without her NSAID and was receptive to staying off it for minimizing her blood loss for about 3 days prior to surgery. Considering her anemia noted and concern for blood loss, she is best served by taking PPI for GI protection and also m inimizing her NSAID use. She had colonoscopy with polypectomy in February last year and her BUN is normal today, she had remote LGIB. While UGIB is possible there is also possibility of urinary loss withprior history of nephrolithiasis. She never had colicky pain with her prior stone and she had severe nasuea which resulted in evaluation and its diagnosis, she does not have such symptom now but could still have a urolith especially pelvic and could have microscopic hematuria causing her anemia. A UA with micro could help determine that. I prescribed pantoprazole and asked her to minimize NSAID use as well as pursue further evaluation per her PCP - UA and may be EGD or empiric response to the PP I. Major Risk Factor per the Revised Cardiac Risk Index (Bold if present) - There is no history of CAD, CHF, CVA or TIA, DM2 on insulin, or a Creatinine >2 Risk diagnosis for MACE (major adverse cardiovascular event = Myocardial infarction, pulmonary edema, ventricular fibrillation, primary cardiac arrest, or complete heart block.) : Low <1% . 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 ARISCAT/CANET Score - estimates the risk of postoperative pulmonary complications as being intermediate ~13.5% due to her anemia. STOP BANG Score - low risk for NOAH. Per the ACS NSQIP calculator I estimated the following with her anemia increasing her risk and placing her at ASA3 as this is new, further evaluation and optimization would result in reduction of herrisk estimate. OF NOTE Will NOT consent to any catheterization of her bladder - had severe painful spasms for a long time after instrumentation in past Has tinnitus and motion sickness and usually has scopolamine patch with anesthesia, she is receptive to Spinal anesthesia for this procedure. Had very bad reactions to absorbable sutures with spitting, inflammation, painful scars for severalyears at her breast surgery sites, had severe itching with these at her left hip surgery site. Bleeding was severe with Hgb dropping to the 7's from 13 with right hip, she had Amicar with the left hip and had much less bleeding, she did not have transfusion for either per her preference. RECOMMENDATION: Defer elective surgery to optimization of her anemia, concurrent recco per hematology for perioperative management of her bleeding diathesis (had Amicar in past with good result and could have TXA with repeat dosing as indicated or the Amicar per input) PPI added to her med regime as above ADDENDUM: Updated patient on the telephone. She would like the pantoprazole sent to [facility] in [facility], I have resent the script there. She will be seen at her PCP's and I asked her to get UA and perhaps FOBT to evaluate source of blood loss causing her low iron saturation as below, of note her retic index is lower than 1 and does suggest hypoproliferation. She will start iron supplement - take every other day per current recommendation. IF UA is negative, she can consider EGD or await follow up evaluation with repeat Hgb in 2-3 weeks on iron and PPI and off the ibuprofen. She relates her OApain will likely flare up off the NSAID but will stop the NSAID, she will use CBD as an alternative. Her TKA will be rescheduled to optimizing her anemia, she is instructed to update us when her Hgb is 12 or more. I opined it would be optimal to have her Hgb at her baseline normal prior to exposingher to blood loss (which would be higher than usual) from an elective procedure and she noted that this is also her preference. I told her she may receive a call from the schedulers here. Results for DIAMOND GAMING ( ) as of 09/19/2018 08:22 Ref. Range 09/18/2018 12:41 Iron Latest Ref Range: 30 - 150 mcg/dL 16 (L) TIBC Latest Ref Range: 250 - 450 mcg/dL 490 (H) Iron Saturation Latest Ref Range: 20 - 50 % 3 (L) Results for DIAMOND GAMING ( ) as of 09/19/2018 08:22 Ref. Range 09/18/2018 12:[address] % Latest Ref Range: 0.7 - 2.5 % 1.[address] Abs Latest Ref Range: 0.020 - 0.110 x10(6)/mcL 0.060 Immature Retic% Latest Ref Range: 0.5 - 13.8 % 18.4 (H) Reticulated Hgb Latest Ref Range: 29.8 - 39.4 pg 21.5 (L) Also placed referral to hematology to help plan her perioperative care in setting of this anemia and bleeding diathesis. documented in this encounter Miscellaneous Notes * Addendum Note - Home Olivas MD - 09/18/2018 10:40 AM ESTAddended by: HOME OLIVAS on: 09/19/2018 08:40 AM Modules accepted: Orders documented in this encounter Plan of Treatment Upcoming Encounters Date Type Department Care Team (Late st Contact Info) Description 11/16/2024 1:00 PM EST Office Visit General Surgery at [place] [address] Paula Harris, PA [facility] [place] [address] 01/26/2025 9:50 AM EDT Appointment Mammography/[place] [address] Joan Deutsch, GE [facility] [place] [address] 01/26/2025 10:50 AM EDT Office Visit General Surgery at [place] [phone] Joan Deutsch, GE [facility] [place] [address] Scheduled Referrals Name Type Priority Associated Diagnoses Orde r Schedule Referral to [facility] Outpatient Referral Routine Primary osteoarthritis of left knee Hypochromic microcytic anemia Bleeding diathesis Ordered: 09/19/2018 documented as of this encounter Visit Diagnoses Diagnosis Preop examination Preoperative examination, unspecified Primary osteoarthritis of left knee Primary localized osteoarthrosis, lower leg Hypochromic microcytic anemia Iron deficiency anemia, unspecified Bleeding diathesis Unspecified hemorrhagic conditions documented in this encounter Care Teams Pathology Technician Relationship Specialty Start Date End Date Mariluz Watts MD [address] [place] [address] PCP - General 08/22/10 documented as of this encounter
--- OUTSIDE RECORDS SUMMARY | 2024-05-18 19:57 | XMS_ITS | Encounter Summary ---
Author Organization [facility] [place] [address] Care Team Providers Care Intervention Nurse Name Role Phone Mariluz Watts MD Primary Care Provider [phone] Encounter Details Date Type Department Care Team (Late st Contact Info) Description 03/10/2019 [place]phone [place] [phone] Daylin Waldrop PA [facility] [place] [address] Social History Tobacco Use Types Packs/Day Years [...] PM EST Office [place] [phone] Paula Harris PA [facility] [place] [address] 01/26/2025 9:50 AM EDT Appointment Mammography/DXA at [place] [phone] Joan Deutsch, [employer] [facility] [place] [address] 01/26/2025 10:50 AM EDT Office Visit General Surgery at [place] [phone] Joan Deutsch, [employer] [facility] [place] [address] documented as of this encounter Visit Diagnoses Not on filedocumented in this encounter Care Teams Intervention Nurse Relationship Specialty Start Date End Date Mariluz Watts MD [address] [place] [address] PCP - General 08/22/10 documented as of this encounter
--- OUTSIDE RECORDS SUMMARY | 2024-05-18 19:57 | XMS_ITS | Encounter Summary ---
[place] [address] Care Team Providers Care Activity Director Name Role Phone Mariluz Watts MD Primary Care Provider [phone] Reason for Visit * Reason Onset Date Comments Labs Only 12/02/2018 labs only Encounter Details Date Type Department Care Team (Late st Contact Info) Description 12/02/2018 Telephone Hematology [place] [address] Marlys Kolb RN Labs Only (labs only) Social History Tobacco Use Types Packs/Day Years [...] encounter Miscellaneous Notes * Telephone Encounter - Marlys Kolb RN - 12/02/2018 10:43 AM EST Message Received: Pt called. Would like to results of lab work from 11/28. She is having difficulty accessing the results in her [facility] account. Pt's callback: [phone], confidential voicemail (ok to leave message with numbers for lab results) T/C to Patient: Left message on VM with labs Plan: Left message with instruction to call back with any questions documented in this encounter Plan of Treatment Upcoming Encounters Date Type Department Care Team (Late st Contact Info) Description 11/16/2024 1:00 PM EST Office Visit [place] [phone] Paula Harris PA [facility] [place] [address] 01/26/2025 9:50 AM EDT Appointment Mammography/DXA at [place] [phone] Joan Deutsch [facility] [place] [address] 01/26/2025 10:50 AM EDT Office Visit [place] [phone] Joan Deutsch [facility] [place] [address] documented as of this encounter Visit Diagnoses Not on filedocumented in this encounter Care Teams Activity Director Relationship Specialty Start Date End Date Mariluz Watts MD [address] [place] [address] PCP - General 08/22/10 documented as of this encounter
--- OUTSIDE RECORDS SUMMARY | 2024-05-18 19:57 | XMS_ITS | Encounter Summary ---
[place] [address] Care Team Providers Care Principal Programmer Name Role Phone Mariluz Watts MD Primary Care Provider [phone] Reason for Visit * Reason Comments Anemia Encounter Details Date Type Department Care Team (Latest Contact Info) Description 10/17/2018 9:30 AM EST - 10/17/2018 11:59 PM EST Hospital Encounter [place]ematology [place] [address] Iron deficiency anemia, unspecified iron deficiency anemia [...] Sign Reading Time Taken Comments Blood Pressure 155/76 10/17/2018 9:38 AM EST Pulse 94 10/17/2018 9:38 AM EST Temperature 36.1 ??C (97 ??F) 10/17/2018 9:38 AM EST Respiratory Rate 16 10/17/2018 9:38 AM EST Oxygen Saturation 100% 10/17/2018 9:38 AM EST Inhaled Oxygen Concentration - - [...] as of this encounter Progress Notes * Natasha Odonnell RN - 10/17/2018 10:53 AM EST Patient Name: Diamond Gaming Patient Age: 72 y.o. Birthdate: 1945 Admit date: 10/17/2018 Attending Physician: No att. providers found TIME TREATMENT STARTED: 930 Diamond Gaming, 72 y.o. female with diagnosis of MAEVE is here for infusion of venofer S: Pt. offers no complaints at this time. O: Orders independently verified for correct drug name, route and dosage per patient's height, weight and BSA by Yesenias RN and onsite pharmacist REACTIONS (DESCRIPTION, TIME, INTERVENTION AND EFFECTIVENESS) none A: Pt. Tolerated treatment well. Diamond Gaming confirms that all questions and issues have been addressed. P: Return to clinic per routine. documented in this encounter Plan of Treatment Upcoming Encounters Date Type Department Care Team (Late st Contact Info) Description 11/16/2024 1:00 PM EST Office Visit General Surgery at [place] [phone] Paula Harris PA [facility] [place] [address] 01/26/2025 9:50 AM EDT Appointment Mammography/DXA at [place] [phone] Joan Deutsch P[employer]ING MACHINE [employer] [facility] [place] [place] [address] 01/26/2025 10:50 AM EDT Office [place] [address] Joan Deutsch P[employer]ING MACHINE [employer] [facility] [place] [place] [address] documented as of this encounter Visit Diagnoses Diagnosis Iron deficiency anemia, unspecified iron deficiency anemia type documented in this encounter Administered Medications Inactive Administered Medications - up to 3 most recent administrations Medication Order MAR Action Action Date Dose Rate Site iron sucrose (VENOFER) injection 200 mg 200 mg, Intravenous, ONCE, 1 dose, On Sat10/17/18 at 0945, Administer over 5 Minutes, Week 1 Infusion, Outpatient Transfusion Given 10/17/2018 9:58 AM EST 200 mg documented in this encounter Care Teams Principal Programmer Relationship Specialty Start Date End Date Mariluz Watts MD [address] [facility] [address] [place] [address] PCP - General 08/22/10 documented as of this encounter
--- OUTSIDE RECORDS SUMMARY | 2024-05-18 19:57 | XMS_ITS | Encounter Summary ---
Author Organization [facility] [place] [address] Care Team Providers Care Manager Club Name Role Phone Mairluz Watts MD Primary Care Provider [phone] Encounter Details Date Type Department Care Team (Latest Contact Info) Description 07/03/2018 9:45 AM EDT Hospital Encounter XRay at [address] [place] [address] Shekhar Moody MD [facility] [place]OPAED[place] [address] History of total left hip arthroplasty Discharge Disposition: Home Social History Tobacco Use [...] PM EST Office [place] [phone] Paula Harris PA [facility] [place] [address] 01/26/2025 9:50 AM EDT Appointment Mammography/[place] [phone] Joan Deutsch APRN [facility] [place] [address] 01/26/2025 10:50 AM EDT Office [place] [phone] Joan Deutsch HAIR ASSISTANT [facility] [place] [address] documented as of this encounter Procedures Procedure Name Priority Date/Time Associated Diagnosis Comments XR PELVIS AND HIP 2 VIEWS LEFT Routine 07/03/2018 10:36 AM EDT History of total left hip arthroplasty documented in this encounter Results * XR Pelvis w AP & Lat Hip Left (07/03/2018 10:36 AM EDT) Anatomical Region Laterality Modality Pelvis, Hip Left Digital Radiogra phy Impressions 07/03/2018 11:12 AM EDT Unchanged bilateral total hip arthroplasties Narrative 07/03/2018 11:12 AM EDT EXAMINATION: XR PELVIS W AP AND LAT HIP LEFT CLINICAL HISTORY: History of total left hip arthroplasty TECHNIQUE: AP pelvis and AP and lateral LEFT hip COMPARISON: 07/13/2014 FINDINGS: Patient is status post bilateral total hip arthroplasties. These appear unchanged in position or alignment since patient's prior study with no evidence of complication. Intact single cerclage wire surrounding the proximal LEFT femur Procedure Note Cece Marrero MD - 07/03/2018 EXAMINATION: XR PELVIS W AP AND LAT HIP LEFT CLINICAL HISTORY: History of total left hip arthroplasty TECHNIQUE: AP pelvis and AP and lateral LEFT hip COMPARISON: 07/13/2014 FINDINGS: Patient is status post bilateral total hip arthroplasties. These appear unchanged in position or alignment since patient's prior study with noevidence of complication. Intact single cerclage wire surrounding the proximal LEFTfemur IMPRESSION Unchanged bilateral total hip arthroplasties Shekhar Moody MD IMG DX ORDERABLES documented in this encounter Visit Diagnoses Diagnosis History of total left hip arthroplasty documented in this encounter Care Teams Manager Club Relationship Specialty Start Date End Date Mrailuz Watts MD [address] [place] [address] PCP - General 08/22/10 documented as of this encounter
--- OUTSIDE RECORDS SUMMARY | 2024-05-18 19:57 | XMS_ITS | Encounter Summary ---
[place] [address] Care Team Providers Care Sleeping Car Service Attendant Name Role Phone Mariluz Watts MD Primary Care Provider [phone] Reason for Visit * Reason Comments Anemia Encounter Details Date Type Department Care Team (Latest Contact Info) Description 10/31/2018 9:00 AM EST - 10/31/2018 11:59 PM EST Hospital Encounter Hematology [place] [address] Iron deficiency anemia, unspecified iron deficiency anemia [...] Sign Reading Time Taken Comments Blood Pressure 152/69 10/31/2018 9:14 AM EST Pulse 71 10/31/2018 9:14 AM EST Temperature 36.4 ??C (97.5 ??F) 10/31/2018 9:14 AM ES T Respiratory Rate 16 10/31/2018 9:14 AM EST Oxygen Saturation 100% 10/31/2018 9:14 AM EST Inhaled Oxygen Concentration - - [...] of this encounter Progress Notes * Kamala Mack RN - 10/31/2018 9:12 AM EST Patient Name: Diamond Gaming Patient Age: 72 y.o. Birthdate: 1945 Admit date: 10/31/2018 Attending Physician: No att. providers found TIME TREATMENT STARTED: 909 TIME TREATMENT ENDED: 1015 Diamond Gaming, 72 y.o. female with diagnosis of MAEVE is here for Venofer. S: Pt. offers no complaints at this time. This is her last treatment before an Endoscopy O: PIV is in place, good blood return Venofer IVP over 10 mins 30 min observation period REACTIONS (DESCRIPTION, TIME, INTERVENTION AND EFFECTIVENESS) none A: Pt. Tolerated treatment well. Diamond Gaming confirms that all questions and issues have been addressed. P: Return to clinic as scheduled documented in this encounter Plan of Treatment Upcoming Encounters Date Type Department Care Team (Late st Contact Info) Description 11/16/2024 1:00 PM EST Office Visit General Surgery at [place] [phone] Paula Harris PA [facility] [place] [address] 01/26/2025 9:50 AM EDT Appointment Mammography/DXA at [place] [phone] Jona Deutsch CLINICAL TRIAL LEADER [facility] [place] [place] [address] 01/26/2025 10:50 AM EDT Office Visit [place] [phone] Joan Deutsch CLINICAL TRIAL LEADER [facility] [place] [address] documented as of this encounter Visit Diagnoses Diagnosis Iron deficiency anemia, unspecified iron deficiency anemia type documented in this encounter Administered Medications Inactive Administered Medications - up to 3 most recent administrations Medication Order MAR Action Action Date Dose Rate Site iron sucrose (VENOFER) injection 200 mg 200 mg, Intravenous, ONCE, 1 dose, On Sat10/31/18 at 0915, Administer over 5 Minutes, Week 3 Infusion, Outpatient Transfusion Given 10/31/2018 9:23 AM EST 200 mg documented in this encounter Care Teams Sleeping Car Service Attendant Relationship Specialty Start Date End Date Mariluz Watts MD [address] [facility] [address] [place] [address] PCP - General 08/22/10 documented as of this encounter
--- OUTSIDE RECORDS SUMMARY | 2024-05-18 19:57 | XMS_ITS | Encounter Summary ---
[place] [address] Care Team Providers Care Credit Control Assistant Name Role Phone Mariluz Watts MD Primary Care Provider [phone] Reason for Referral * Surgical (Routine) - Specialty Diagnoses / Procedures Referred By John lyons Referred To Contact Anesthesiology Diagnoses Primary osteoarthritis of left knee Shekhar Moody MD [facility] ORTHOPA[place] [address] [place] [address] Referral ID Status Reason Start Date Expiration Date V isits Requested Visits Authorized [id number] Consult, Test & Treat 07/28/2018 07/28/2019 1 1 Reason for Visit * Reason Comments Foot Pain right Encounter Details Date Type Department Care Team (Latest Contact Info) Description 07/28/2018 9:00 AM EDT Office [place] [address] Shekhar Moody MD [facility] ORTHOPAED[place] [address] Primary osteoarthritis of left knee (Primary Dx); Osteoarthritis of right midfoot; Pain in extremity, unspecified extremity Social History [...] Sign Reading Time Taken Comments Blood Pressure 124/79 07/28/2018 8:42 AM EDT Pulse 98 07/28/2018 8:42 AM EDT Temperature - - Respiratory Rate - - Oxygen Saturation - - Inhaled Oxygen Concentration - - Weight 98 kg (216 lb) 07/28/2018 8:42 AM EDT pt reported Height 166.4 cm (5' 5.5) 07/28/2018 8:42 AM EDT pt reported Body Mass Index 35.4 07/28/2018 8:42 AM EDT documented in this encounter Progress Notes * Shekhar Moody MD - 07/28/2018 9:00 AM EDT Chief complaint: Left knee arthritis and right midfoot arthritis Problem List Items Addressed This Visit Osteoarthritis of left knee - Primary Relevant Orders Review preoperative joint instructions per protocol. Chlorhexidine scrub mupirocin calcium (Bactroban) 2% nasal ointment Schedule joint class. Type and Screen Future Surgery, LEB SDP ONLY CBC (with Diff) Basic Metabolic Panel (non-fasting) Prothrombin Time APTT EKG 12 Lead Referral to General Anesthesiology Osteoarthritis of midfoot Other Visit Diagnoses Pain in extremity, unspecified extremity Relevant Orders Prothrombin Time APTT History of present illness: Diamond Gaming is a 72 y.o. year-old female who was previously seen Cornell Marinelli for the above. In brief, she has right midfoot arthritis, predominantly of the navicular cuneiform joint, as well as left knee arthritis. She had a knee scope with Dr. Ervin in 2005 and review of that operative report reveals grade 2-3 changes throughout her patellofemoral joint and her medial knee joint during that procedure. She is interested in discussing left total knee arthroplasty. She feels her left knee gives out on her and will be an easier recovery and would like to pursue this first. Past medical history: Patient Active Problem List Diagnosis Date Noted ??? Osteoarthritis of midfoot 05/23/2016 ??? Hallux [...] right breast, stage 2 01/25/2010 Medications: ??? diaZEPam (VALIUM) 2 mg Tablet ??? ibuprofen (ADVIL;MOTRIN) 600 mg tablet ??? cholecalciferol, Vitamin D3, (VITAMIN D) 1,000 [...] Last attempt to quit: 09/30/1968 Years since quittin.8 ??? Smokeless tobacco: Never Used Substance Use Topics ??? Alcohol use: No Review of systems: No chest pain or shortness of breath No fevers, night sweats or chills Vital signs: Temp: -- Physical Exam: Examination of the left knee reveals 0-120 degrees of flexion and extension with pain along the medial aspect of the knee. She has well-healed arthroscopy incisions. Stable to varus and valgus force.Neurovascular intact distally. Examination of the right foot reveals tenderness to palpation over apalpable osteophyte at the medial navicular cuneiform joint. Only minimally painful over the distalmetatarsal phalangeal joint. Imaging: Personal review of the patient's imaging reveals: X-rays show significant arthritis of her left knee, predominantly in the medial and patellofemoral joint. She has spurring and joint space narrowing of the navicular cuneiform joints and potentially the second and third TMT joints on her foot x-rays of the right foot. Assessment: 72 y.o. year-old female with left knee arthritis and right midfoot arthritis, left kneebeing the most bothersome to her at this point. Plan: We discussed treatment options for both. I think she would be a candidate for a midfoot fusion on the right, with a CT scan to further delineate exactly which joints are most affected. On the left, we discussed the possibility of total knee arthroplasty as well as all of the nonoperative options that continue to be possibilities. We discussed the risks and benefits of total knee arthroplasty, including the risks of bleeding, infection, damage to nerves and vessels, need for reoperation and pain. We discussed the elective nature of this procedure. She has a history of a bleeding diathesis, and so we will have her see hematology, Dr. Olivas, and then myself for a preoperative appointment. We will place orders today for left total knee arthroplasty. Follow up: For Preop This plan was discussed with the patient and they are in agreement. All of the patient's questions were answered. The above dictation was made with voice recogonition software documented in this encounter Plan of Treatment Upcoming Encounters Date Type Department Care Team (Late st Contact Info) Description 11/16/2024 1:00 PM EST Office [place] [address] Paula Harris PA [facility] [place] [address] 01/26/2025 9:50 AM EDT Appointment Mammography[place] [address] Joan Deutsch APRN [facility] GENERAL SURGERY [place], [place] [phone] 01/26/2025 10:50 AM EDT Office [place] [address] Joan Deutsch APRN [facility] [place] [address] Scheduled Referrals Name Type Priority Associated Diagnoses Orde r Schedule Referral to General Anesthesiology Outpatient Referral Routine Primary osteoarthritis of left knee Ordered: 07/28/2018 documented as of this encounter Results * APTT (09/18/2018 12:41 PM EST) Partial Thromboplastin Time 35 25 - 37 sec [facility] Comment: The PTT is NOT appropriate for heparin monitoring. Use the Anti-Xa level for heparin monitoring (HEP UFH) or LMWH monitoring (HEP LMW). A PTT less than 37 seconds generally indicates adequate hemostasis. Blood specimen (specimen) 09/18/2018 12:41 PM EST 09/18/2018 1:12 PM EST Narrative Resulting Agency Comment Spec In Lab Shekhar Moody MD HEMATOLOGY ORDERABLE S [facility] [place] [address] * Prothrombin Time (09/18/2018 12:41 PM EST) Prothrombin Time 11.5 9.4 - 12.5 sec [facility] International Normalization Ratio 1.0 [facility] Comment: An INR <2.0 indicates [...] Lab Shekhar Moody MD HEMATOLOGY ORDERABLE S [facility] [place] [address] * (ABNORMAL) Basic Metabolic Panel (non-fasting) (09/18/2018 12:41 PM EST) Glucose 94 65 - 199 mg/dL [facility] Comment:Diabetes: >=200 mg/d L plus symptoms Blood Urea Nitrogen 14 8 - 18 mg/dL [facility] Creatinine 0.64(L) 0.70 - 1.20 mg/dL [facility] Sodium 143 135 - 145 mmol/L [facility] Potassium 3.5 3.5 - 5.0 mmol/L [facility] Comment: Please note: ??Patients with WBC >100,000 may have falsely elevated Potassium levels. ??For accurate Potassium quantification in these patients send serum separator tube (gold top) for subsequent determinations. ??Contact the Clinical Chemistry Laboratory if there are any questions. Chloride 106 98 - 107 mmol/L [facility] Carbon Dioxide 25 22 - 31 mmol/L [facility] Anion Gap 12 5 - 15 mmol/L [facility] Calcium 9.5 8.5 - 10.5 mg/dL [facility] Est Glomerular Filtration Rate 90 >=60 mL/min/1. 73 m?? [facility] Comment: The eGFR was calculated using the CKD-EPI equation. As with all creatinine based estimates of kidney function, eGFR values calculated with the CKD-EPI equation are not accurate in patients with acute kidney failure, extremes of body mass or the acutely ill. http://[employer]/DHMCnkf eGFR 105 >=60 mL/min/1. 73 m?? [facility] Comment: The eGFR was calculated using the CKD-EPI equation. As with all creatinine based estimates of kidney function, eGFR values calculated with the CKD-EPI equation are not accurate in patients with acute kidney failure, extremes of body mass or the acutely ill. http://[employer]/DHMCnkf Blood specimen (specimen) 09/18/2018 12:41 PM EST 09/18/2018 1:12 PM EST Narrative Resulting Agency Comment Spec In Lab Shekhar Moody MD CHEMISTRY ORDERABLES Performing Organization Address [facility] Co de Phone Number [facility] [place] [place] [address] * EKG 12 Lead (09/18/2018 11:55 AM EST) Ventricular rate 74 BPM MUSE SYSTEM Atrial Rate 74 BPM MUSE SYSTEM P-R Interval 202 ms MUSE SYSTEM QRS Duration 84 ms MUSE SYSTEM Q-T Interval 372 ms MUSE SYSTEM QTC Calculated (Bezet) 412 ms MUSE SYSTEM Calculated P [place] 57 degrees MUSE SYSTEM Calculated R [place] -31 degrees MUSE SYSTEM Calculated T [place] 52 degrees MUSE SYSTEM INTERPRETATION Sinus rhythm with Premature supraventricular complexes Left axis deviation Abnormal ECG When compared with ECG of 08-JUL-2012 13:37, Premature supraventricular complexes are now Present Confirmed by MD Sree, Shivam ([id number]) on 09/18/2018 4:27:15 PM MUSE SYSTEM 09/18/2018 11:5 5 AM EST 09/18/2018 4:27 PM EST Shekhar Moody MD ECG ORDERABLES Performing Organization Address [facility] Co de Phone Number MUSE SYSTEM documented in this encounter Visit Diagnoses Diagnosis Primary osteoarthritis of left knee- Primary Primary localized osteoarthrosis, lower leg Osteoarthritis of right midfoot Pain in extremity, unspecified extremity documented in this encounter Care Teams Credit Control Assistant Relationship Specialty Start Date End Date Mariluz Watts MD [address] [place] [address] PCP - General 08/22/10 documented as of this encounter
--- OUTSIDE RECORDS SUMMARY | 2024-05-18 19:57 | XMS_ITS | Encounter Summary ---
[place] [address] Care Team Providers Care Foreign Agent Name Role Phone Mariluz Watts MD Primary Care Provider [phone] Encounter Details Date Type Department Care Team (Latest Contact Info) Description 09/18/2018 11:40 AM EST Clinical [place] [address] Primary osteoarthritis of left knee Social History Tobacco Use Types Packs/Day Years [...] as of this encounter Progress Notes * Kylee Kuo RN - 09/18/2018 11:40 AM EST PAT questionnaire reviewed with patient while in Pre Admission testing. Pre- operative instruction booklet reviewed. Patient verbalizes a good understanding of all information reviewed. PLAN: Testing: EKG, T&S, lab. Special medication instructions: Procedure date: 10-13. documented in this encounter Plan of Treatment Upcoming Encounters Date Type Department Care Team (Late st Contact Info) Description 11/16/2024 1:00 PM EST Office [place] [address] Paula Harris PA [facility] [place] [address] 01/26/2025 9:50 AM EDT Appointment Mammography[place] [phone] Joan Deutsch [facility] [place] [address] 01/26/2025 10:50 AM EDT Office [place] [phone] Joan Deutsch, [facility] [place] [address] documented as of this encounter Procedures Procedure Name Priority Date/Time Associated Diagnosis Comments EKG 12-LEAD Routine 09/18/2018 11:55 AM EST Primary osteoarthritis of left knee documented in this encounter Results * EKG 12 Lead (09/18/2018 11:55 AM EST) Ventricular rate 74 BPM MUSE SYSTEM Atrial Rate 74 BPM MUSE SYSTEM P-R Interval 202 ms MUSE SYSTEM QRS Duration 84 ms MUSE SYSTEM Q-T Interval 372 ms MUSE SYSTEM QTC Calculated (Bezet) 412 ms MUSE SYSTEM Calculated P [place] 57 degrees MUSE SYSTEM Calculated R [place] -31 degrees MUSE SYSTEM Calculated T [place] 52 degrees MUSE SYSTEM INTERPRETATION Sinus rhythm with Premature supraventricular complexes Left axis deviation Abnormal ECG When compared with ECG of 08-JUL-2012 13:37, Premature supraventricular complexes are now Present Confirmed by MD Sree, Shivam ([id number]) on 09/18/2018 4:27:15 PM MUSE SYSTEM 09/18/2018 11:5 5 AM EST 09/18/2018 4:27 PM EST Shekhar Moody MD ECG ORDERABLES MUSE SYSTEM documented in this encounter Visit Diagnoses Diagnosis Primary osteoarthritis of left knee Primary localized osteoarthrosis, lower leg documented in this encounter Care Teams Foreign Agent Relationship Specialty Start Date End Date Mariluz Watts MD [address] [place] [address] PCP - General 08/22/10 documented as of this encounter
--- OUTSIDE RECORDS SUMMARY | 2024-05-18 19:57 | XMS_ITS | Encounter Summary ---
Author Organization [facility] [place] [address] Care Team Providers Care Parts Sales Advisor Name Role Phone Mariluz Watts MD Primary Care Provider [phone] Reason for Referral * Diagnostic Test (Routine) - Closed Specialty Diagnoses / Procedures Referred By John lyons Referred To Contact Radiology Diagnoses Osteopenia of multiple sites Procedures DXA Central-Spine, Hip, And/Or Whole Body (Generic) Abrahan Merlos MD [facility] DR HEMATOLOGY/[place] [address] [place] [address] Referral ID Status Reason Start Date Expiration Date V isits Requested Visits Authorized [id number] Closed Specialty Service Requested 12/26/2018 12/26/2019 1 1 Reason for Visit * Reason Comments Follow-up Encounter Details Date Type Department Care Team (Late st Contact Info) Description 12/26/2018 2:00 PM EDT Office Visit Hematology and Oncology at [facility] [place] [address] Abrahan Merlos MD [facility] DR HEMATOLOGY/[place] [address] Osteopenia of multiple sites Social History Tobacco Use Types Packs/Day Years [...] Sign Reading Time Taken Comments Blood Pressure 118/68 12/26/2018 1:50 PM EDT Pulse 76 12/26/2018 1:50 PM EDT Temperature 36.4 ??C (97.5 ??F) 12/26/2018 1:50 PM ED T Respiratory Rate 16 12/26/2018 1:50 PM EDT Oxygen Saturation 99% 12/26/2018 1:50 PM EDT Inhaled Oxygen Concentration - - Weight 91.6 kg (202 lb) 12/26/2018 1:50 PM EDT Height 165.1 cm (5' 5) 12/26/2018 1:50 PM EDT Body Mass Index 33.61 12/26/2018 1:50 PM EDT documented in this encounter Progress Notes * Abrahan Merlos MD - 12/26/2018 2:00 PM EDT Subjective: Patient ID: Diamond [...] on May 13, 2015. Interval History: Diamond needs a left knee replacement, followed by a reconstruction of the right foot. Her course has been complicated by an upper GI bleed, and her anemia has recovered with iron replacement. She is taking a multivitamin with iron and Dr. Watts will be following her blood counts. She is having pain in her hips, knees, feet, and hands. Her musculoskeletal pain has been controlled with tylenol. She had urinary incontinence and frequent urinary tract infections due to interstitial cystitis which has resolved. Her citalopram has been switched to duloxetine, and her mood is good. She is trying to lose weight. 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 She takes Vitamin D at 3000 units daily. Review of Systems She denies breast pain or a palpable breast mass, a cough, shortness of breath, chest pain, nausea,vomiting, diarrhea, constipation, headaches, double vision, skin rashes, pain, redness, or swellingin her lower extremities, or any other sites of joint or skeletal pain. The remainder of her reviewof systems is negative. Objective: Physical Exam Constitutional: She appears well-developed and well-nourished. Her weight is down 5.3 kg over the past year, and her BP is 118/58. HENT: Mouth/Throat: Oropharynx is clear and moist. [...] axillary adenopathy palpable on either side. Abdominal: Soft. She exhibits no distension and no mass. There is no tenderness. There is no guarding. Musculoskeletal: She exhibits no edema. She has no pain on percussion over the spine, sternum, ribs, or hips. Skin: Skin is warm and dry. No erythema. Psychiatric: She has a normal mood and affect. Vitals reviewed. The most recent 3-D mammograms from November 28, 2018 showed no suspicious microcalcifications, masses,or architectural distortion, with stable post- surgical changes on the left. The breasts were of scattered density. The most recent Dexa scan from December 11, 2016 showed T scores of -1.5 in the lumbar spine (down from -1.4 in November 2014), and -1.6 in the left wrist (up from -1.8 in November 2014). The most recent CBC from November 28, 2018 showed a WBC count of 5.2, Hgb 14.1,Hct 45.0, platelets 228,ANC 2860, and MCV 78.4. Chemistries from September 18, 2018 included a [...] five years of adjuvant anastrozole more than three years ago. She has a number of sites of musculoskeletal pain, and several sites which will require surgical intervention. I will continue to see her once yearly, coordinating my visits with the breast surgery SOFTWARE PACKAGING ENGINEER's visits. I will see her next in followup in M 2019, and I will repeat her Dexa scan then. She knows to contact us in the interim if she has any concerns over her breast exam. Abrahan Merlos MD customer service supervisor in Hematology-Oncology documented in this encounter Plan of Treatment Upcoming Encounters Date Type Department Care Team (Late st Contact Info) Description 11/16/2024 1:00 PM EST Office [place] [phone] Paula Harris PA [facility] [place] [address] 01/26/2025 9:50 AM EDT Appointment Mammography/DXA at [place] [phone] Joan Deutsch [facility] [place] [address] 01/26/2025 10:50 AM EDT Office Visit [place] [phone] Joan Deutsch [facility] [place] [address] documented as of this encounter Results * [...] BMD measurements and plots are available in [employer] under the imaging tab. Paper copies will be sent to providers without [employer] access. If you have received this report without the data sheet and do not have access to [employer], please contact Radiology Heel Room Supervisor at [phone] Saturday thru Saturday 8am-4pm. Thank you for [...] baseline, 0.042 g/cm2 (4.6 %) decrease. At [facility], least significant change for bone mineral [...] baseline, 0.042 g/cm2 (4.6 %) decrease. At [facility], least significant change for bonemineral density [...] BMD measurements and plots are available in [employer] ([employer])under the imaging tab. Paper copies will be sent to providers without E- access.If you have received this report without the data sheet and do not haveaccess to [employer], please contact Radiology Heel Room Supervisor at [phone] Saturday thruFrid 8am-4pm. Thank you for letting us participate in the care of this patient. Forquestions regarding this report, please contact the number below. Abrahan Merlos MD IMG DEXA ORDERABLES documented in this encounter Visit Diagnoses Diagnosis Osteopenia of multiple sites Osteopenia of multiple sites documented in this encounter Care Teams Parts Sales Advisor Relationship Specialty Start Date End Date Mariluz Watts MD [address] [place] [address] PCP - General 08/22/10 documented as of this encounter
--- OUTSIDE RECORDS SUMMARY | 2024-05-18 19:57 | XMS_ITS | Encounter Summary ---
[place] [address] Care Team Providers Care Shadowgraph Operator Name Role Phone Mariluz Watts MD Primary Care Provider [phone] Encounter Details Date Type Department Care Team (Late st Contact Info) Description 11/28/2018 11:30 AM EST Office [place] [address] Bella Ly APRN [facility] [place] [address] History of breast cancer Social History Tobacco [...] Progress Notes * Bella Ly APRN - 11/28/2018 11:30 AM EST Diamond is a 72 y.o[address] Pt of Dr Marquez who returns [...] carcinoma with lobular features Tumor Grade: Intermediate Catgxo-Hjxxu-Qtohzjejpj Score: 7 Tubular Differentiation: 3 Mitotic Rate: [...] sentinel nodes: 2 (Specimen A - Right Shelby node) No. positive for carcinoma: 1 (H&E) No. with IHC (+) cells only: 0 (cells not seen by H&E, see Note*) No. negative for carcinoma: 1 (both H&E and IHC For positive nodes: Largest kristi deposit 0.2 cm Extranodal extension Absent Estrogen/Progestin receptors: Performed on blocks C2 and C11 ER immunoreactivity: Positive (see Diagnostic hanna*) GA immunoreactivity: Positive (see Diagnostic hanna*) HER2/shonda expression by FISH: Negative Kimi was returned to the OR for deep margin excision. This was negative for residual malignancy. Kimi declined chemotherapy and proceeded to whole breast xrt.She completed 5 years of arimidex. She is still bothered by her smaller than expected breast size after reduction. Doing well! On exam, well appearing and in nad. No cervical, supraclavicular or axillary adenopathy. B/L reduction mammoplasty incisions well healed . Fat necrosis in the right breast 10:00 1x2cm and left breastat 12:00 and 3:00 at areolar border approximately 1cm. No additional masses appreciated. Mammogram today: cat 1 Comprehensive Breast Program Surgery Follow Up Note armRange of motion of surgical arm complete Lymphedema present No Cosmesis-surgeon reported Cosmesis-patient reported Good Good Local or regional recurrence No Contralateral cancer present No Distant recurrence present No Date of last follow up 11/28/18 A/P Doing well without evidence of recurrence or metastatic disease.Plan follow up in 1 year with bilateral mammogram.I informed Diamond that I would be retiring in July and that her next surgicalfollow up appt will be with a new provider. She will see Dr. Merlos later this month. documented in this encounter Plan of Treatment Upcoming Encounters Date Type Department Care Team (Late st Contact Info) Description 11/16/2024 1:00 PM EST Office [place] [phone] Paula Harris PA [facility] [place] [address] 01/26/2025 9:50 AM EDT Appointment Mammography/[place] [phone] Joan Deutsch APRN [facility] [place] [address] 01/26/2025 10:50 AM EDT Office [place] [address] Joan Deutsch APRN [facility] [place] [address] documented as of this encounter Visit Diagnoses Diagnosis History of breast cancer Personal history of malignant neoplasm of breast documented in this encounter Care Teams Shadowgraph Operator Relationship Specialty Start Date End Date Mariluz Watts MD [address] [place] [address] PCP - General 08/22/10 documented as of this encounter
--- OUTSIDE RECORDS SUMMARY | 2024-05-18 19:57 | XMS_ITS | Encounter Summary ---
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 Procedures Call pt back at [phone]. Okay to leave msg. Alvin Sin MD [facility] [address] HEMATOLOGY/[place] [address] [facility] Endoscopy [address] [place] [address] Referral ID Status Reason Start Date Expiration Date V isits Requested Visits Authorized [id number] Closed Consult, Test & Treat 10/03/2018 10/03/2019 1 1 Reason for Visit * Consultation (Urgent) - Closed Specialty Diagnoses / Procedures Referred By John lyons Referred To Contact Hematology and Oncology Diagnoses Primary osteoarthritis of left knee Hypochromic microcytic anemia Bleeding diathesis IRON DEFICIENCY ANEMIA Vic Olivas MD [facility] [place] [address] [facility] On[facility] [address] [place] [address] Referral ID Status Reason Start Date Expiration Date V isits Requested Visits Authorized [id number] Closed Consult, Test & Treat [facility] 09/19/2018 09/19/2019 1 1 Encounter Details Date Type Department Care Team (Late st Contact Info) Description 10/03/2018 10:00 AM EST Office Visit Hematology [place] [address] Charity De La Cruz MD [facility] HEMATOLOGY [place] [address] Maricarmen Martins, Alvin Romero MD [facility] HEMATOLOGY/[place] [address] Iron deficiency anemia, unspecified iron deficiency anemia [...] Sign Reading Time Taken Comments Blood Pressure 144/82 10/03/2018 9:44 AM EST Pulse 91 10/03/2018 9:44 AM EST Temperature 36.6 ??C (97.9 ??F) 10/03/2018 9:44 AM ES T Respiratory Rate 16 10/03/2018 9:44 AM EST Oxygen Saturation 99% 10/03/2018 9:44 AM EST Inhaled Oxygen Concentration - - Weight 96.1 kg (211 lb 12.8 oz) 10/03/2018 9:44 AM EST Height 166 cm (5' 5.35) 10/03/2018 9:44 AM EST Body Mass Index 34.86 10/03/2018 9:44 AM EST documented in this encounter Progress Notes * Alvin Valladares MD - 10/03/2018 10:00 AM EST Images from the original note were not included. [facility] [place] [address] HEMOSTASIS CONSULTATION DATE OF VISIT 10/03/2018 Patient Diamond Gaming 1945 REFERRING PHYSICIAN Vic Olivas MD PRIMARY CARE PHYSICIAN Mariluz Watts MD REASON FOR CONSULTATION Bleeding diathesis and iron deficiency anemia HISTORY OF THE PRESENT ILLNESS Diamond Gaming is a 72 y.o. 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 Vic Olivas for evaluation/management of bleeding diastasis and iron deficiencyanemia. The history is obtained from the patient, and I have reviewed extensive medical records provided by the referring physician and located in the electronic medical record to fill in gaps in the patient's recollection of events, treatments and outcomes. Patient was going to be scheduled for left knee arthroplasty and underwent preoperative evaluation on 09/26/18, when she was noted to have anemia with H/H of 9.9/33.1(last H/H was in June 2015-11.7/36.3). Anemia workup performed revealed low ferritin of 6, low iron saturation of 3 and elevated TIBC 490, consistent with iron deficiency anemia. She was recommended to stop taking ibuprofen [medication which she has been on since 2004]. She noted having dark stools for 1 month prior to that, which normalized after she stopped taking ibuprofen. She had guaiac stool tests 1 week after she stopped taking ibuprofen which was negative. She was also started on iron supplements about a week ago. She denies any dark/coffee-ground emesis, vaginal bleeding, severe epistaxis. In addition, patient has history of easy bruising and significant bleeding with some of her prior surgeries. She noted that she had hemorrhage with her son's delivery and significant bleeding after 1 of the hip surgeries. She denies any spontaneous bleeding or prolonged/excessive bleeding after minor injuries. She is not on any anticoagulation, however was taking ibuprofen every day for the past 14 years until 2 weeks ago. There is no family history of hematological disorders. PAST MEDICAL HISTORY - diverticulosis - kidney stones - stage II breast cancer s/p partial mastectomy and XRT OPERATIVE PROCEDURES - R and L hip repair - tubal ligation at the age of 48 - Right breast partial mastectomy - L knee meniscus repair at the age of 23 OBSTETRIC HISTORY - - 3 and 1 live delivery (son who is currently 37 years old) -Currently postmenopausal, however she used to have heavy periods lasting 7 days in the past MEDICATIONS Current Outpatient Medications on File Prior to Visit Medication Sig Dispense Refill ??? acetaminophen (TYLENOL) 500 mg Tablet Take 1,000 mg by mouth every 6 hours as needed for Pain. ??? pantoprazole (PROTONIX) 20 mg Tablet, Delayed Release (E.C.) Take 1 tablet by mouth daily. Indications: Prevention of NSAID-Induced Gastric Ulcer 90 tablet 0 ??? ferrous sulfate 325 mg (65 mg iron) Tablet, Delayed Release (E.C.) Take 1 tablet by mouth everyother day. ??? metroNIDAZOLE (METROGEL) 0.75 % Gel Apply to the face twice daily as needed. 45 g 2 ??? cholecalciferol, Vitamin D3, (VITAMIN D) 1,000 unit Tab tablet Take 1 tablet by mouth daily. 60tablet 5 ??? diaZEPam (VALIUM) 2 mg Tablet Take 2 mg by mouth nightly as needed for Anxiety. ??? ibuprofen (ADVIL;MOTRIN) 600 mg tablet Take 600 mg by mouth 4 times daily. No current facility-administered medications on file prior to visit. ADVERSE DRUG REACTIONS Allergies as of 10/03/2018 - Review Complete 10/03/2018 Allergen Reaction Noted ??? Hymenoptera allergenic extract Anaphylaxis 04/03/2011 ??? Tetracyclines Anaphylaxis ??? 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 REVIEW OF SYSTEMS Fevers/chills/sweats No Recent infections No Unexplained weight loss No Headache/lightheadedness/syncope No Sinus pain/pressure No Oral sores/lesions/bleeding No Sore throat/dysphagia No Nosebleeds No Cough/SOB/chest pain/heart racing No Nausea/vomiting/dyspepsia No Abdominal pain No Diarrhea/constipation/rectal bleeding No Urinary pain, burning, incontinence No Hematuria No Vaginal discharge/bleeding No Skin rashes/ulcers No Back/joint pain/swelling No Leg swelling/pain/redness No Bruising/petechiae/bleeding/melena No Sensory/motor No Polydipsia/polyuria/heat/cold intol No Lumps/bumps/swollen glands No Other Negative except as above PHYSICAL EXAMINATION BP 144/82 (Patient Position: Sitting) Pulse 91 Temp 36.6 ??C (97.9 ??F) (Oral) Resp 16 Ht 166 cm (5' 5.35) Wt 96.1 kg (211 lb 12.8 oz) SpO2 99% BMI 34.86 kg/m?? GENERAL: Well-appearing, articulate white female. HEENT: Oropharynx clear; no mucosal lesions, petechiae, bleeding, thrush or ulcers. NECK: Supple; no cervical, supraclavicular or submental adenopathy. CHEST/LUNGS: Clear to auscultation/percussion. No rales, rhonchi, wheezes. HEART: Regular rate and rhythm; no murmur, rub, gallop GASTROINTESTINAL: Abdomen soft, non-tender, no hepatosplenomegaly. EXTREMITIES: No clubbing, cyanosis or edema. No erythema, tenderness or palpable cords. No venous varicosities. No skin discoloration or hemosiderin deposits. Peripheral pulses palpable. MUSCULOSKELETAL: Arthritic pain the movement of both knees SKIN: No ecchymoses, petechiae, ulcers or rashes. LYMPH: No palpable lymph nodes. NEUROLOGIC: Alert, oriented. Speech clear, coherent. No focal deficits noted. PSYCHIATRIC: Appropriate affect, no apparent distress. LABORATORY STUDIES Reviewed labs from 12/20 as well as the labs in the scanned documents dated 09/25 RADIOGRAPHIC STUDIES None IMPRESSION Diamond Gaming is a 72 y.o. woman with iron deficiency anemia, likely secondary to GI losses [upperGI-erosive gastritis versus ulcers, lower GI-diverticulosis versus other colonic pathology such as colon cancer]. Patient also has history of easy bleeding/bruising, which is likely related to antiplatelet effectsof ibuprofen as well as vessel wall structure difference (? Hypermobility syndrome). PLAN/RECOMMENDATIONS 1. Iron deficiency anemia, likely secondary to GI losses Patient is currently on oral iron supplements, however this may not be adequate given the severe deficiency of iron. We will plan to give her 4 doses of IV Venofer [1 dose per week] and then recheck CBC and ferritin 4 weeks after the last dose of Venofer to evaluate for response. In addition, we will refer her to gastroenterology to evaluate for possible sources of GI blood loss. I advised her not to take ibuprofen or any other NSAIDs such as aspirin, ketorolac, diclofenac as these can increase her risk for erosive gastritis and hence GI bleed. 2. Easy bleeding/bruising Upon chart review, patient has had extensive evaluation for bleeding disorders in 2009 [[address] Villalba]. Below other results [copied from Dr. Villalba's note] which are all normal. Tests revealed a prothrombin time of 13.5, PTT 32, collagen/epinephrine closure time 108, collagen/ABD closure time 83 percent, Factor VIII 106%, Von Willebrand factor antigen 90%, Von Willebrand factor activity 94%, Factor IX 143%, and Factor XI 143%. Platelet aggregation studies showed normal responses. Her prothrombin consumption was at the lower limit of normal at 72 percent. We discussed that the ibuprofen that she was taking previously might have been contributing to her increased bleeding/bruising as it can impair platelet function and hence clotting. Stopping the ibuprofen was certainly help improve the platelet function and hence clotting. Furthermore, we would recommend getting her Tranexamic acid perioperatively to minimize bleeding for her upcoming surgeries. Diamond Gaming had the opportunity to ask questions and indicated that all her questions were answered to her satisfaction. Patient's case was discussed with my attending Dr. De La Cruz. Alvin Valladares MD Hematology/Oncology fellow Pager [phone] +*+*+*+*+*+*+*+*+*+*+*+*+*+*+*+*+*+*+*+*+*+*+*+*+*+*+*+*+*+*+*+*+*+*+*+*+*+* Hemostasis Attending Physician I have independently interviewed and examined this patient in the outpatient clinic and have personally reviewed the relevant clinical, laboratory and radiological data with Dr. Alvin Valladares, Hematology/Oncology Fellow. Please refer to the separate consultation note, with which I concur, for complete details of our encounter with this patient. I have reviewed and endorse the recommendations as outlined and have made any additions/corrections below. In brief, Kimi Gaming has iron deficiency anemia, that we believe is most likely due to GI loss perhaps associated with ibuprofen use. She requires iron supplementation and we will arrange for four weekly IV infusions of Venofer. She'll continue daily oral iron supplementation and we will refer herto GI for evaluation for endoscopy. Once she has completed the fourth Venofer infusion she should have CBC, ferritin, iron and TIBC studies to confirm that iron stores have been restored. This can bedone locally by Dr. Watts and I will copy her on this report. Kimi should not undergo either of the proposed orthopedic procedures until her iron stores are restored AND her hemoglobin level is at least 12 g/dL. In the meantime, she should abstain from ibuprofen or other NSAID use. Kimi does not have a systemic bleeding disorder. As above, she had an extensive evaluation by Dr. Villalba several years ago. We see no indication to repeat these studies at this time. She has had more than expected bleeding associated with surgical procedures, however, thus we recommend the use of tranexamic acid, 10-15 mg/kg pre-operatively prior to each of the proposed orthopedic surgery procedures to reduce the amount of surgical blood loss. Finally, she has no contraindication to the use of standard thromboprophylaxis for the orthopedic procedures; HOWEVER, we favor an anticoagulant (e.g., apixaban, 2.5 mg twice daily) over aspirin given her GI bleeding. Charity De La Cruz MD [facility] * Charity De La Cruz MD - 10/03/2018 10:00 AM EST Images from the original note were not included. [facility] [place] [address] +*+*+*+*+*+*+*+*+*+*+*+*+*+*+*+*+*+*+*+*+*+*+*+*+*+*+*+*+*+*+*+*+*+*+*+*+*+* Hemostasis Attending Physician I have independently interviewed and examined this patient in the outpatient clinic and have personally reviewed the relevant clinical, laboratory and radiological data with Dr. Alvin Valladares, Hematology/Oncology Fellow. Please refer to the separate consultation note, with which I concur, for complete details of our encounter with this patient. I have reviewed and endorse the recommendations as outlined and have made any additions/corrections below. In brief, Kimi Gaming has iron deficiency anemia, that we believe is most likely due to GI loss perhaps associated with ibuprofen use. She requires iron supplementation and we will arrange for four weekly IV infusions of Venofer. She'll continue daily oral iron supplementation and we will refer herto GI for evaluation for endoscopy. Once she has completed the fourth Venofer infusion she should have CBC, ferritin, iron and TIBC studies to confirm that iron stores have been restored. This can bedone locally by Dr. Watts and I will copy her on this report. Kimi should not undergo either of the proposed orthopedic procedures until her iron stores are restored AND her hemoglobin level is at least 12 g/dL. In the meantime, she should abstain from ibuprofen or other NSAID use. Kimi does not have a systemic bleeding disorder. As above, she had an extensive evaluation by Dr. Villalba several years ago. We see no indication to repeat these studies at this time. She has had more than expected bleeding associated with surgical procedures, however, thus we recommend the use of tranexamic acid, 10-15 mg/kg pre-operatively prior to each of the proposed orthopedic surgery procedures to reduce the amount of surgical blood loss. Finally, she has no contraindication to the use of standard thromboprophylaxis for the orthopedic procedures; HOWEVER, we favor an anticoagulant (e.g., apixaban, 2.5 mg twice daily) over aspirin given her GI bleeding. Charity De La Cruz MD [facility] documented in this encounter Plan of Treatment Upcoming Encounters Date Type Department Care Team (Late st Contact Info) Description 11/16/2024 1:00 PM EST Office [place] [address] Paula Harris PA [facility] [place] [address] 01/26/2025 9:50 AM EDT Appointment Mammography[place] [phone] Joan Deutsch APRN [facility] [place] [address] 01/26/2025 10:50 AM EDT Office [place] [address] Joan Deutsch [facility] [place] [address] Scheduled Referrals Name Type Priority Associated Diagnoses Order Schedule Referral to Gastroenterology Outpatient Referral Routine Iron deficiency anemia, unspecified iron deficiency anemia type Ordered: 10/03/2018 documented as of this encounter Results * Ferritin (11/28/2018 10:20 AM EST) [facility] Signature Ferritin 110 30 - 400 ng/mL [facility] Comment: Pediatric reference ranges not verified at [facility], interpret with caution. Reference ranges for females greater than 50 years of age approach values for men, i.e., 30-400 ng/mL. Blood specimen (specimen) 11/28/2018 10:20 AM EST 11/28/2018 10:35 AM EST Narrative Resulting Agency Comment Spec In Lab Charity De La Cruz MD CHEMISTRY ORDERABL ES 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
--- OUTSIDE RECORDS SUMMARY | 2024-05-18 19:58 | XMS_ITS | Encounter Summary ---
Author Organization [facility] [place] [address] Care Team Providers Care Help Desk Rep Name Role Phone Mariluz Watts MD Primary Care Provider [phone] Reason for Visit * Reason Comments Sinusitis Sinus issues Laryngitis Encounter Details Date Type Department Care Team (Late st Contact Info) Description 04/24/2016 1:00 PM EDT Office Visit [place] [address] [facility] [place] [address] Chronic rhinitis; Gastric reflux Social History Tobacco Use Types Packs/Day Years [...] Sign Reading Time Taken Comments Blood Pressure - - Pulse - - Temperature - - Respiratory Rate - - Oxygen Saturation - - Inhaled Oxygen Concentration - - Weight 97.5 kg (215 lb) 04/24/2016 1:03 PM EDT Height 166.4 cm (5' 5.5) 04/24/2016 1:03 PM EDT Body Mass Index 35.23 04/24/2016 1:03 PM EDT documented in this encounter Progress Notes * Cleo Kruger, BARROW WORKER - 04/24/2016 1:00 PM EDT Otolaryngology Outpatient Consultation Note Date of Visit: 04/24/2016 Location of Visit: Otolaryngology Clinic, [facility] Patient: Diamond Gaming ([id number] ; 1945 Primary Care Provider: MARILUZ WATTS MD Referring Provider: Mariluz Watts Reason for Visit: Diamond is a 70 y.o. female with c/o sinus congestion and hoarseness x 2 years seen at the request of Mariluz Watts. History of Present Illness: Diamond presents with complaints of sinus congestion with hoarseness for2 years. She generally gets 3 sinus infections a year. Takes for several weeks to resolve the infection. She feels it increased with sinus infection since spending time with her 4-year-old grandchild. His use Flonase but feels it causes her epistaxis and bleeding doesn't help. She is using Joie pot in the past and that hasn't really changed her sinus issues. She has a change in her voice with hoarseness. She used to sing but feels in the last few months she is not able to reach the pitch thatshe was sing at. She does have a history of reflux and has been on 20 mg of omeprazole for several years. She does have a history of smoking one pack a day for 3 years but quit in 1968. Past Medical History: Past Medical History Diagnosis Date ??? Anxiety associated with depression ??? Aortic valve sclerosis 07/25/2012 ??? Benign hypermobility syndrome ??? 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 Breast cancer, stage 2 01/25/2010 ??? Degenerative joint disease ??? Diverticulosis ??? GI bleeding 03/25/2011 ??? Osteoarthritis of left knee 07/25/2012 ??? Rosacea 03/25/2011 Past Surgical History: See list Medications: Current Outpatient Prescriptions on File Prior to Visit Medication Sig Dispense Refill ??? predniSONE (DELTASONE) 5 mg Tablet Take 5 mg by mouth daily. ??? multivitamin (THERAGRAN) tablet Take 1 tablet by mouth daily. ??? ammonium lactate (LAC-HYDRIN) 12 % lotion Apply topically as needed for Dry Skin. Use to rough spots on thighs. 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 tile picker both scripts 02/02/14 400 g 10 ??? metroNIDAZOLE (METROGEL) 1 % gel Apply topically daily. 45 g 10 ??? citalopram (CELEXA) 20 mg tablet Take 20 mg by mouth daily. ??? ibuprofen (ADVIL;MOTRIN) 600 mg tablet Take 600 mg by mouth 4 times daily. ??? cholecalciferol, Vitamin D3, (VITAMIN D) 1,000 unit Tab tablet Take 1 tablet by mouth daily. 60tablet 5 ??? omeprazole (PRILOSEC) 10 mg capsule Take 10 mg by mouth daily. ??? amoxicillin-clavulanate (AUGMENTIN) 500-125 mg per tablet Take 4 tablets by mouth as needed. 500mg, x 4 for dental procedures No current facility-administered medications on file prior to visit. Allergies: Hymenoptera allergenic extract; Tetracyclines; Plaquenil [hydroxychloroquine]; and Trazodone Social History: Diamond Gaming lives in [place] [address]*,. Family History: Family History Problem Relation Age of Onset ??? Prostate Cancer Paternal Grandfather ??? Breast Cancer 80's ??? Breast Cancer Review of Systems: Pertinent positive findings discussed above. No other findings on review of constitutional, visual, cardiovascular, respiratory, gastrointestinal, genitourinary, musculoskeletal, dermatologic, neurological, psychiatric, endocrine, hematologic or immunologic systems. Physical Examination: Vitals: Height 166.4 cm (5' 5.5), weight 97.5 kg (215 lb). General: A pleasant 70 y.o. In no acute distress. Face: Full and symmetric facial movement. No dysmorphic facial features. Ears: Auricles symmetric without lesions. External auditory canals clear. Right tympanic membrane clear. right middle ear aerated. Left tympanic membrane clear. left middle ear aerated. Nose: Patent anteriorly with adequate airflow, healthy pink mucosa. Septum is midline without significant deviation. Inferior turbinates wnl Mouth: Lips and gingiva pink, moist, without lesions. Age-appropriate dentition healthy. Tongue andfloor of mouth soft without lesions or masses. Hard palate without lesions. Pharynx: Soft palate without lesions. Uvula is intact without evidence of submucus cleft palate. Oropharynx symmetric.Cobblestone drip pattern noted. Neck: Soft, supple, without significant lymphadenopathy. Thyroid gland without masses or asymmetry.Trachea midline without deviation. Procedure - Flexible Fiberoptic Laryngoscopy: Topical anesthetic applied to the nasal cavity. Patient tolerated the procedure well without complication. Findings: Nasal Cavity: Clear. Mucus, no masses Nasopharynx: wnl Oropharynx: wnl Larynx: Vocal cords mobile and symmetric. Arytenoid folds with mild erythema and edema. No masses Hypopharynx: wnl Impression: 1) Rhinitis with reflux Recommendations: I have asked her to increase her Omeprazole to 40 mg a day. She was given an education sheet on diet awareness. She was asked to monitor for further sinus issues. When she has an increase in congestion a sinus rinse and Flonase were recommended. She will f/u with her PCP for the new prescription. Monitor for further sinus issues and rtc as needed. Cleo CHUA [place], [place] [address] Office documented in this encounter Plan of Treatment Upcoming Encounters Date Type Department Care Team (Late st Contact Info) Description 11/16/2024 1:00 PM EST Office Visit [place] [phone] [facility] [place] [address] 01/26/2025 9:50 AM EDT Appointment Mammography/[place] [phone] [address] Joan Deutsch, [facility] [place] [address] 01/26/2025 10:50 AM EDT Office Visit [place] [address] Joan Deutsch, [facility] [place] [address] documented as of this encounter Visit Diagnoses Diagnosis Chronic rhinitis Gastric reflux Esophageal reflux documented in this encounter Care Teams Help Desk Rep Relationship Specialty Start Date End Date Mariluz Watts MD [address] [place] [address] PCP - General 08/22/10 documented as of this encounter
--- OUTSIDE RECORDS SUMMARY | 2024-05-18 19:58 | XMS_ITS | Encounter Summary ---
[place] [address] Care Team Providers Care Side Puller Name Role Phone Mariluz Watts MD Primary Care Provider [phone] Reason for Visit * Reason Comments Follow Up Surgery Encounter Details Date Type Department Care Team (Late st Contact Info) Description 12/19/2015 11:45 AM EDT Office [place] [address] Bella Ly APRN [facility] [place] [address] History of breast cancer Social History Tobacco [...] Progress Notes * Bella Ly APRN - 12/19/2015 10:51 AM EDT Diamond is a 70 y[address] Pt of Dr Marquez who returns [...] carcinoma with lobular features Tumor Grade: Intermediate Nfmxlb-Ljnfc-Fpffeskcoo Score: 7 Tubular Differentiation: 3 Mitotic Rate: [...] sentinel nodes: 2 (Specimen A - Right [place] node) No. positive for carcinoma: 1 (H&E) No. with IHC (+) cells only: 0 (cells not seen by H&E, see Note*) No. negative for carcinoma: 1 (both H&E and IHC For positive nodes: Largest kristi deposit 0.2 cm Extranodal extension Absent Estrogen/Progestin receptors: Performed on blocks C2 and C11 ER immunoreactivity: Positive (see Diagnostic hanna*) [place] immunoreactivity: Positive (see Diagnostic hanna*) HER2/shonda expression by FISH: Negative Kimi was returned to the OR for deep margin excision. This was negative for residual malignancy. Kimi declined chemotherapy and proceeded to whole breast xrt.She completed 5 years of arimidex. She has no complaints today in the clinic. Energy level is improving. She has no headaches, sob, cough, abd pain. She has chronic arthritis. ROM of the right arm is nearly intact. No lymphedema. Elderly parents both last year and her son is . Despite that she is doing OK and spending a lot of time with her 4 year old grand daughter Evens. On exam, well appearing and in nad. No cervical, supraclavicular or axillary adenopathy. B/L reduction mammoplasty incisions well healed . Fat necrosis in the right breast 10:00 1x2cm and left breastat 12:00 and 3:00 at areolar border approximately 1cm. No additional masses appreciated. Mammogram today: cat1 Comprehensive Breast Program Surgery Follow Up Note armRange of motion of surgical arm complete Lymphedema present No Cosmesis-surgeon reported Cosmesis-patient reported Good Good Local or regional recurrence No Contralateral cancer present No Distant recurrence present No Date of last follow up 12/19/15 A/P Doing well without evidence of recurrence or metastatic disease. Tolerating arimidex. Plan follow up in 1 year with bilateral mammogram. She will see Dr. Merlos in the interval time frame. documented in this encounter Plan of Treatment Upcoming Encounters Date Type Department Care Team (Late st Contact Info) Description 11/16/2024 1:00 PM EST Office [place] [address] Paula Harris PA [facility] [place] [address] 01/26/2025 9:50 AM EDT Appointment Mammography[place] [address] Joan Deutsch APRN [facility] [place] [address] 01/26/2025 10:50 AM EDT Office Visit General Surgery at [facility] [place] [address] Joan Deutsch HANG GLIDING INSTRUCTOR [facility] [place] [address] documented as of this encounter Results * Mammo Digital Bilateral Screening With CAD and Tomosynthesis (12/11/2016 8:00 AM EDT) Anatomical Region Laterality Modality Breast Bilateral Mammography Narrative 12/11/2016 8:50 AM EDT REASON FOR EXAM: Screening. History of right breast cancer. TECHNIQUE: CC and MLO views were obtained of both breasts. Computer aided detection was used. 3D tomosynthesis images were obtained in addition to 2D images. Comparison: The study is compared with prior images. FINDINGS: Breast density:The breasts are almost entirely fatty. There are no suspicious microcalcifications, masses, or areas of distortion. There are post treatment changes in the right breast. CONCLUSION: No mammographic evidence of malignancy. RECOMMENDATION: Routine screening. BIRADS CATEGORY 2: BENIGN FINDINGS * ??The [employer] and The Society of [...] earlier screening and breast MRI are appropriate. Gardenia Marquez MD IMG MAMMO ORDERABLE S documented in this encounter Visit Diagnoses Diagnosis History of breast cancer Personal history of malignant neoplasm of breast History of breast cancer Personal history of malignant neoplasm of breast documented in this encounter Care Teams Side Puller Relationship Specialty Start Date End Date Mariluz Watts MD [address] [place] [address] PCP - General 08/22/10 documented as of this encounter
--- OUTSIDE RECORDS SUMMARY | 2024-05-18 19:58 | XMS_ITS | Encounter Summary ---
[place] [address] Care Team Providers Care Intelligence Manager Name Role Phone Mariluz Watts MD Primary Care Provider [phone] Reason for Visit * Reason Onset Date Comments Medication Problem 08/04/2015 Encounter Details Date Type Department Care Team (Late st Contact Info) Description 08/04/2015 [place] [address] Jennifer Suresh MD [facility] [place] [address] Medication Problem Social History Tobacco Use Types Packs/Day Years [...] Miscellaneous Notes * Telephone Encounter - Anusha Marcum RN - 08/04/2015 2:08 PM EST Patient called related to problems taking Flomax and oxybutynin. She has been having symptoms of nausea, vomiting, confusion and constipation. She feels as though the symptoms are related to her medications. She has no pain, no bladder spasms, and no hematuria.Patient self discontinued medication on 08/03/15. Her symptoms have gone away since stopping. Dr. Suresh was consulted today and confirmed stopping was OK as long as she is asymptomatic. Ms. Gaming was directed to call if she has any bladder symptoms and will be following up with Dr. Bowman on 09/14/15. Anusha Marcum RN documented in this encounter Plan of Treatment Upcoming Encounters Date Type Department Care Team (Late st Contact Info) Description 11/16/2024 1:00 PM EST Office Visit General Surgery at [place] [phone] Paula Harris PA [facility] [place] [address] 01/26/2025 9:50 AM EDT Appointment Mammography/[place] [address] Joan Deutsch APRN [facility] [place] [address] 01/26/2025 10:50 AM EDT Office Visit General Surgery at [place] [phone] Joan Deutsch APRN [facility] [place] [place] [address] documented as of this encounter Visit Diagnoses Not on filedocumented in this encounter Care Teams Intelligence Manager Relationship Specialty Start Date End Date Mariluz Watts MD [address] [place] [address] [address] [place] [address] PCP - General 08/22/10 documented as of this encounter
--- OUTSIDE RECORDS SUMMARY | 2024-05-18 19:58 | XMS_ITS | Encounter Summary ---
[place] [address] Care Team Providers Care Curator Of Photography And Prints Name Role Phone Mariluz Watts MD Primary Care Provider [phone] Encounter Details Date Type Department Care Team (Late st Contact Info) Description 07/17/2015 [place] [address] Rohan James MD [facility] [place] [address] Social History Tobacco Use Types Packs/Day Years [...] encounter Miscellaneous Notes * Telephone Encounter - Rohan James - 07/17/2015 3:42 PM EDT Ms. Gaming is s/p cysto, stent placement for ureteral stone. She calls with ongoing hematuria. She is voiding fine, with no large clots. She is not having significant pain. I reassured her that some blood in the urine is normal, but to call with worsening blood or if she is unable to urinate. documented in this encounter Plan of Treatment Upcoming Encounters Date Type Department Care Team (Late st Contact Info) Description 11/16/2024 1:00 PM EST Office Visit General Surgery at [place] [phone] Paula Harris PA [facility] [place] [address] 01/26/2025 9:50 AM EDT Appointment Mammography/DXA at [place] [phone] Joan Deutsch APPOINTMENT MANAGER [facility] [place] [place] [address] 01/26/2025 10:50 AM EDT Office Visit General Surgery at [place] [phone] Joan Deutsch [facility] [place] [address] documented as of this encounter Visit Diagnoses Not on filedocumented in this encounter Care Teams Curator Of Photography And Prints Relationship Specialty Start Date End Date Mariluz Watts MD [address] [place] [address] [address] [place] [address] PCP - General 08/22/10 documented as of this encounter
--- OUTSIDE RECORDS SUMMARY | 2024-05-18 19:58 | XMS_ITS | Encounter Summary ---
Author Organization [facility] [place] [address] Care Team Providers Care Director Of Accreditation Name Role Phone Mariluz Watts MD Primary Care Provider [phone] Encounter Details Date Type Department Care Team (Latest Contact Info) Description 12/11/2016 7:30 AM EDT - 12/11/2016 7:32 AM EDT Hospital [place] [address] Gardenia Marquez MD [facility] [place] [address] History of breast cancer Discharge Disposition: Home [...] Sig Dispensed Refills Start Date End Date ALPRAZolam (XANAX) 0.5 mg Tablet 12/07/2016 05/01/2018 LACTOBAC CMB #[id number] ORAL Take 1 tablet by mouth daily. 12/24/2012 05/01/2018 Lysine 500 mg Tablet Take 1 tablet by mouth daily. Reported on 12/11/2016 05/01/2018 multivitamin (THERAGRAN) tablet Take 1 tablet by mouth daily. Reported on 12/11/2016 07/03/2018 ammonium lactate (LAC-HYDRIN) 12 % lotionIndications:SK (seborrheic keratosis) Apply topically as needed for Dry Skin. Use to rough spots on thighs. 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 vegetable picker both scripts 02/02/14 400 g 10 [...] PM EST Office [place] [phone] Paula Harris PA [facility] [place] [address] 01/26/2025 9:50 AM EDT Appointment Mammography/[place] [address] Joan Deutsch APRN [facility] [place] [address] 01/26/2025 10:50 AM EDT Office [place] [address] Joan Deutsch, GE [facility] [place] [address] documented as of this encounter Procedures Procedure Name Priority Date/Time Associated Diagnosis Comments MAMMO SCREENING CAD AND CINDY BILATERAL Routine 12/11/2016 8:00 AM EDT History of breast cancer documented in this encounter Results * Mammo Digital Bilateral [...] BIRADS CATEGORY 2: BENIGN FINDINGS * ??[employer] and [...] breast documented in this encounter Care Teams Director Of Accreditation Relationship Specialty Start Date End Date Mariluz Watts MD [address] [facility] [address] [address] PCP - General 08/22/10 documented as of this encounter
--- OUTSIDE RECORDS SUMMARY | 2024-05-18 19:58 | XMS_ITS | Encounter Summary ---
[facility] [place] [address] Care Team Providers Care Adjunct Teacher Name Role Phone Mariluz Watts MD Primary Care Provider [phone] Encounter Details Date Type Department Care Team (Late st Contact Info) Description 07/27/2015 9:07 AM EDT - 07/27/2015 11:05 AM EDT Surgery [place] [address] Kami Bowman MD [facility] [place] [address] CYSTO, REMOVAL OF STENT, FOREIGN BODY OR CALCULUS, SIMPLE (WRVU 2.81) Social History Tobacco Use Types Packs/Day Years [...] Sign Reading Time Taken Comments Blood Pressure 158/94 07/27/2015 10:51 AM EDT Pulse 87 07/27/2015 10:51 AM EDT Temperature 36.8 ??C (98.2 ??F) 07/27/2015 10:19 AM E DT Respiratory Rate 18 07/27/2015 10:51 AM EDT Oxygen Saturation 97% 07/27/2015 10:51 AM EDT Inhaled Oxygen Concentration - - Weight 90 kg (198 lb 6.4 oz) 07/27/2015 7:59 AM EDT Height 166.4 cm (5' 5.51) 07/27/2015 7:59 AM ED T Body Mass Index 32.5 07/27/2015 7:59 AM EDT documented in this encounter Discharge Instructions * Discharge Instructions* Brenda Pisano RN - 07/27/2015 10:33 AM EDT POST ANESTHESIA INSTRUCTIONS Go home, rest, use caution on stairs. Change positions slowly. Do not smoke if you are alone. Diet light to regular as tolerated today. If nausea occurs start with clear liquids and progress slowly. No driving, operating machinery, alcoholic beverages and no important decisions for 24 hours. Monitor IV site for signs and symptoms of infection: increasing redness, swelling, foul drainage, if occurs contact M.D. Patients who have had endotrachial tubes (this tube, used by anesthesia department, is passed down your throat after you are asleep, to ensure safe air passage during your operation). A sore throat is normal due to the tube. Cold liquids or soothing lozenges will help ease the discomfort. The generalized muscle aches are due to the medication given to you just before the tube is inserted. As the medication wears off, you may develop muscle soreness, which usually goes away in 12-24 hours. * Patient Instructions* Rohan James - 07/27/2015 9:27 AM EDT You may remove your ureteral stent by pulling on the string steadily until the whole stent is outon this Saturday morning. Please try to be careful until then when wiping after voiding that you do not pull the string. Call your doctor for: ??? fevers greater than 100.5 ??? severe nausea or vomiting ??? increasing pain not controlled by pain medications The number for questions is [phone] before 5 PM weekdays and [phone] after 5 PM and weekends. Activity level: Increased activity may lead to more stent discomfort and more blood in your urine. Your activity level will be determined by your comfort level. Diet: You may resume your regular diet as tolerated. Driving: No driving while still taking opioid pain medications (wait at least 6- 8 hours since last dose). No driving if you are still sore from surgery as it may limit your ability to react quickly if necessary. Shower/Bath: No restrictions. Stent Discomfort: Most patients experience some degree of discomfort related to their ureteral stent. Symptoms include flank pain (increased during urination), frequency and urgency of urination, burning or pain in the bladder or urethral with urination, pelvic discomfort, and blood in the urine. Your symptoms may be exacerbated by activity. To manage your stent symptoms, try the following: - drink plenty of fluid (~2 liters per day or enough to make urine clear or pale yellow) - take ibuprofen (Motrin, Advil, or generic), up to 600-800mg every 8 hours - take acetaminophen (Tylenol), up to 650mg every 4 hours (regular strength) or 1000mg every 6 hours (extra strength) - take other narcotic pain medications as prescribed. If taking vicodin or percocet, do not take Tylenol in addition. Follow up Appointments: Follow-up appointment will be scheduled for 6 weeks with a renal ultrasoundprior. Please call [phone] if you do not receive your appointment. It is important to remember that your ureteral stent cannot stay in place permanently. If it remains in place too long it may become encrusted with stone and require additional surgery to remove it. Please call our office if you do not receive your appointment or if you need to reschedule. documented in this encounter Medications at Time of Discharge Medication Sig Dispensed Refills Start Date End Date LACTOBAC CMB #[id number] ORAL Take 1 tablet by mouth daily. 12/24/2012 05/01/2018 clarithromycin (BIAXIN) 500 mg Tablet Twice a day 12/15/201204/24 ciprofloxacin HCl (CIPRO) 500 mg Tablet Take 1 tablet by mouth 2 times daily for 15 days. 30 tablet 0 07/13/2015 07/28/2015 oxybutynin (DITROPAN) 5 mg Tablet Take 1 tablet by mouth 2 times daily. 180 tablet 3 07/13/2015 09/14/2015 tamsulosin (FLOMAX) 0.4 mg Capsule, Sust. Release 24 hr Take 1 capsule by mouth daily. 90 tablet 3 07/13/2015 09/14/2015 omeprazole (PRILOSEC) 10 mg capsule Take 10 mg by mouth daily. 05/16/2016 multivitamin (THERAGRAN) tablet Take 1 tablet by mouth daily. Reported on 12/11/2016 07/03/2018 ammonium lactate (LAC-HYDRIN) 12 % lotionIndications:SK (seborrheic keratosis) Apply topically as needed for Dry Skin. Use to rough spots on thighs. 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 45 g 10 02/01/2014 05/01/2018 amoxicillin-clavulanat e (AUGMENTIN) 500-125 mg per tablet Take 4 tablets by mouth as needed. Reported on 12/11/2016 03/16/2013 05/01/2018 citalopram (CELEXA) 20 mg tablet Take 20 mg by mouth daily. 05/16/2016 ibuprofen (ADVIL;MOTRIN) 600 mg tablet Take 600 mg by mouth 4 times daily. 11/06/2018 cholecalciferol, Vitamin D3, (VITAMIN D) 1,000 unit Tab tablet Take 1 tablet by mouth daily. 60 tablet 5 07/25/2012 09/07/2022 documented as of this encounter Progress Notes * Brenda Pisano, RN - 07/27/2015 12:45 PM EDT Pt wishes to be discharged despite no arrival of ordered oxybuynin at 1126 and multiple calls and notes to pharmacy. Pt feels one hour wait for post operative medication is excessive and will take her home oxybutynin. Discharge instructions reviewed. Pt voiding without difficulty. documented in this encounter H&P Notes * Kami Bowman MD - 07/27/2015 8:14 AM EDT UROLOGY UPDATE H&P No changes. Patient with 4 mm left ureteral stone. Negative urine culture here, however she had a pansensitive E. Coli on the outside. She has been on Cipro since her stent placement here approximately 2 weeks ago and took a dose today. Proceed to OR for cysto, left ureteroscopy, left stent exchange. ATTENDING: I have personally seen and evaluated the patient and I agree with the history, exam, assessment andplan as documented. KAMI BOWMAN MD 07/27/2015 documented in this encounter Miscellaneous Notes * Op Note - Kami Bowman MD - 07/27/2015 9:27 AM EDT [facility] [place] Patient Name: Diamond Gaming : [id number] MR#: [id number] Case Date: 07/27/2015 Surgeon: Surgeon(s) and Role: * Kami Bowman MD - Primary * Rohan James MD - Resident-Surgeon Francesco Preoperative diagnosis: LT STONES Postoperative diagnosis: Same Procedure(s): CYSTO, REMOVAL OF STENT, FOREIGN BODY OR CALCULUS, SIMPLE CYSTO, LEFT URETERAL STENT PLACEMENT LEFT URETEROSCOPY WITH BASKET STONE EXTRACTION LEFT RETROGRADE PYELOGRAPHY Findings: 1. Stone encountered in proximal left ureter, able to be grasped and removed as several small pieces 2. Kidney mapped and deemed stone free 3. 6 24 stent placed with tether Complications: None Fluids: 500 cc Estimated Blood Loss: None Drains: None Disposition: awakened from anesthesia, extubated and taken to the recovery room in a stable condition, having suffered no apparent untoward event. Condition: doing well without problems (Please see the Surgical Encounter Summary for any Implant and Specimen details pertinent to this patient.) HPI/Surgical Indications: 69 yo F who presented with left ureteral stone and concern for infection 2 weeks ago. She was stented, and she presents today for definitive ureteroscopy. Procedure Description: The patient was identified in the pre-operative holding area, informed consent was obtained, and her H&P was updated. She was then taken to the OR and placed in the supine position on the OR table. She was given a pre-operative dose of ancef. General anesthesia was induced and an LMA was placed. She was then moved to the dorsal lithotomy position and prepped and draped in the usual sterile fashion. A time out was performed and the team was ready to proceed with cysto,left ureteroscopy, stent exchange. A 22.5 Fr cystoscope was then introduced into the bladder and the existing stent was easily identified. The stent was grasped and pulled to the meatus, where it was wired with a 0.035 sensor wire. This was advanced to the kidney under fluoroscopy, and the stent was removed. A micro 6 ureteroscope was then placed and advanced into the ureter. The ureteral stone was identified in the proximal ureter. It was able to be grasped with a basket and removed as several fragments, as it fractionated simply by pressure from the basket. A second wire was placed, and the Flex X ureteroscope was advanced over the wire to the kidney under fluoroscopic guidance. The kidney was systematically inspected withthe aid of a mapping retrograde pyelogram, and deemed stone free. There were no filling defects visualized on the retrograde pyelography. The scope was removed and the ureter inspected and also confirmed stone free. A 6Fr 24 cm Contour ureteral stent with tether attached was then inserted under fluoroscopic guidance. A coil was noted in the kidney fluoroscopically and the bladder visually. The bladder was drained and the scope was removed. She was woken from anesthesia and taken to recovery. She will remove her stent at home in 2 days. Infection Bundle used? No Attending: I, Dr. Bowman, was present and scrubbed for the entire procedure. I personally read the retrograde pyelogram which showed no filling defects within the left kidney. KAMI BOWMAN MD 07/27/2015 * Brief Op Note - Kami Bowman MD - 07/27/2015 9:27 AM EDT Brief Operative Note Patient Name: Diamond Gaming : [id number] MR#: [id number] Case Date: 07/27/2015 Surgeon: Surgeon(s) and Role: * Kami Bowman MD - Primary * Rohan James MD - Resident-Surgeon Francesco Preoperative diagnosis: LT STONES Postoperative diagnosis: * No post-op diagnosis entered * Procedure(s): CYSTO, REMOVAL OF STENT, FOREIGN BODY OR CALCULUS, SIMPLE CYSTO, STENT PLACEMENT LEFT CYSTOURETEROSCOPY WITH BASKET STONE EXTRACTION LEFT RETROGRADE PYELOGRAPHY Anesthesia: General Findings: 1. Stone encountered in proximal left ureter, able to be grasped and removed as several small pieces 2. Kidney mapped and deemed stone free 3. 6 24 stent placed with tether Complications: None Fluids: 500 cc Estimated Blood Loss: None Drains: None Disposition: awakened from anesthesia, extubated and taken to the recovery room in a stable condition, having suffered no apparent untoward event. Condition: doing well without problems (Please see the Surgical Encounter Summary for any Implant and Specimen details pertinent to this patient.) Infection Bundle used? No documented in this encounter Plan of Treatment Upcoming Encounters Date Type Department Care Team (Late st Contact Info) Description 11/16/2024 1:00 PM EST Office Visit General Surgery at [place] [phone] Paula Harris PA [facility] [place] [address] 01/26/2025 9:50 AM EDT Appointment Mammography/[place] [address] Joan Deutsch APRN [facility] [place] [address] 01/26/2025 10:50 AM EDT Office Visit General Surgery at [place] [phone] Joan Deutsch APRN [facility] [place] [address] Pending Results Name Type Priority Associated Diagnoses Date /Time FILM LIBRARY-FLUORO OR [id number] ONL Imaging Routine 07/27/2015 10: 20 AM EDT Scheduled Orders Name Type Priority Associated Diagnoses Orde r Schedule FILM LIBRARY-FLUORO OR [id number] ONL Imaging Routine Once PRN (f or Radiant use) for 1 Occurrences starting 07/27/2015 until 07/27/2015 documented as of this encounter Procedures Procedure Name Priority Date/Time Associated Diagnosis Comments MODIFIER HOLMIUM LASER Yes 07/27/2015 9:19 AM EDT LT STONES CYSTOURETEROSCOPY, LITHOTRIPSY (WRVU 7.5) Yes 07/27/2015 9:19 AM EDT LT STONES CYSTO, STENT PLACEMENT (WRVU 2.82) Yes 07/27/2015 9:19 AM EDT LT STONES CYSTO, REMOVAL OF STENT, FOREIGN BODY OR CALCULUS, SIMPLE (WRVU 2.81) Yes 07/27/2015 9:19 AM EDT LT STONES IMPLANTABLE DEVICES SCAN 015 12:00 AM EDT documented in this encounter Results * US Retroperitoneal Complete (09/14/2015 10:53 AM EST) Anatomical Region Laterality Modality Abdomen Ultrasound 09/14/2015 10:4 3 AM EST Impressions 09/14/2015 11:02 AM EST Impression Ultrasound - ??Retroperitoneal Complete - Summary Normal renal and bladder ultrasound. No evidence for hydronephrosis. I ??viewed the images and agree with the above interpretation. ?Bella Dowling MD Electronically Signed Final Report ?? 09/14/2015 11:02 am Narrative 09/14/2015 11:02 AM EST Renal ?(Signed Final 09/14/2015 11:02 am) Patient Info ID #: ? [id number] ?: [birth year] (69 yrs) Name: ? DIAMOND GAMING ? Visit Date: 09/14/2015 10:43 am Performed By Performed By: ? Abel JOSEMI, ??Christine Attending: ?Nitesh STEINER, Bella Associate: ?Ramon STEINER, [facility] Referred By: ?KAMI BOWMAN MD Service(s) Provided ??URETRO - Retroperitoneal Complete - [id number] ? [id number] Indications ??s/p left ureteroscopy/stent, r/o residual hydro Comparison No prior studies for comparison. Right Kidney Size (cm) ?L: ??11.2 Cortical Thickness: ?Normal Cortical Echogenicity: ?? Normal Hydronephrosis: ?No sonographic evidence Left Kidney Size (cm) ?L: ??12.2 Cortical Thickness: ?Normal Cortical Echogenicity: ?? Normal Hydronephrosis: ?No sonographic evidence Urinary Bladder Pre-void (cm) ? L: ??5.1 ? AP: ??4.6 ? TV: ??6.5 Vol (ml): ?79.8 Comment: ?Partially distended, normal contour Procedure Note Bella Dowling MD - 09/14/2015 Renal (Signed Final 09/14/2015 11:02 am) Patient Info ID #: [id number] : [birth year] (69 yrs) Name: DIAMOND GAMING Visit Date: 09/14/2015 10:43 am Performed By Performed By: Christine Roman RDMS Attending: Bella Dowling MD Associate: Ramon STEINER [facility] Referred By: KAMI BOWMAN MD Service(s) Provided URETRO - Retroperitoneal Complete - [id number] Indications s/p left ureteroscopy/stent, r/o residual hydro Comparison No prior studies for comparison. Right Kidney Size (cm) L: 11.2 Cortical Thickness: Normal Cortical Echogenicity: Normal Hydronephrosis: No sonographic evidence Left Kidney Size (cm) L: 12.2 Cortical Thickness: Normal Cortical Echogenicity: Normal Hydronephrosis: No sonographic evidence Urinary Bladder Pre-void (cm) L: 5.1 AP: 4.6 TV: 6.5 Vol (ml): 79.8 Comment: Partially distended, normal contour IMPRESSION Impression Ultrasound - Retroperitoneal Complete - Summary Normal renal and bladder ultrasound. No evidence for hydronephrosis. I viewed the images and agree with the above interpretation. Bella Dowling MD Electronically Signed Final Report 09/14/2015 11:02 am Kami Bowman MD IMG US GEN ORDERAB LES * SCAN DOC: IMPLANTABLE DEVICES (07/27/2015 12:00 AM EDT) Scanning Provider MEDIA MGR SCAN EXT O RDR/RSLT documented in this encounter Visit Diagnoses Not on filedocumented in this encounter Administered Medications Inactive Administered Medications - up to 3 most recent administrations Medication Order MAR Action Action Date Dose Rate Site fentaNYL (PF) 50 mcg/mL 2mL syringe 25 mcg, Intravenous, EVERY 5 MIN PRN, Pain, for 1-4 pain score, Starting on Sat07/27/15 at 1024, Until Sat07/27/15 at 1248, for 1-4 pain score Hold for respiratory rate less than 10 per minute. Maximum dose: 250 mcg over one hour., PACU Recovery Given 07/27/2015 10:51 AM EDT 25 mcg Given 07/27/2015 10:39 AM EDT 25 mcg iohexol (OMNIPAQUE) 300 mg/mL solution ONCE PRN, Starting on Sat07/27/15 at 0957, Until Sat07/27/15 at 1248, Intra-Operative (Intra-Procedure), Routine Given 07/27/2015 10:14 AM EDT 10 mLs 19- Surgical Site Given 07/27/2015 9:57 AM EDT 50 mLs lactated ringers infusion 1,000 mL 1,000 mL, at 100 mL/hr, Intravenous, CONTINUOUS, Starting on Sat07/27/15 at 0830, Until Sat07/27/15 at 1248, Day of Surgery (Day of Procedure) New Bag 07/27/2015 9:17 AM EDT 1,000 mLs 100 mL/hr ondansetron (ZOFRAN-ODT) oral disintegrating tablet 4 mg 4 mg, Oral, EVERY 8 HOURS PRN, Starting on Sat07/27/15 at 1224, Until Sat07/27/15 at 1450, Nausea, Routine Given 07/27/2015 12:26 PM EDT 4 mg oxyCODONE-acetaminophen (PERCOCET) 5-325 mg per tablet 1 tablet 1 tablet, Oral, EVERY 4 HOURS PRN, Starting on Sat07/27/15 at 1017, Until Sat07/27/15 at 1450, Pain, Maximum dose of acetaminophen is 4000 mg from all sources in 24 hours., Routine Given 07/27/2015 12:01 PM EDT 1 tablet documented in this encounter Active and Recently Administered Medications Times are shown in EDT. Scheduled Medication Order 07/25/2015 07/26/2015 07/27/2015 ceFAZolin (ANCEF) 2g in dextrose 5% 50 mL (COMPLETED) 2 g, Intravenous, ONCE, 1 dose, On Sat07/27/15 at 0645, Administer over 30 Minutes, Indication for (Active or Suspected): Prophylaxis 0929 (Given - Provid er: Karla Maurice MD) Continuous Medication Order 07/25/2015 07/26/2015 07/27/2015 lactated ringers infusion 1,000 mL (CANCELED) 1,000 mL, at 100 mL/hr, Intravenous, CONTINUOUS, Starting on Sat07/27/15 at 0830, Until Sat07/27/15 at 1248, Day of Surgery (Day of Procedure) 0830 (Due)0917 (New Bag - Provider: Beronica Morillo RN)0955 (Anesthesia Volume Adjustment - Provider: Karla Maurice MD) PRN Medication Order 07/25/2015 07/26/2015 07/27/2015 fentaNYL (PF) 50 mcg/mL 2mL syringe (CANCELED)(Linked Group 1) 25 mcg, Intravenous, EVERY 5 MIN PRN, Pain, for 1-4 pain score, Starting on Sat07/27/15 at 1024, Until Sat07/27/15 at 1248, for 1-4 pain score Hold for respiratory rate less than 10 per minute. Maximum dose: 250 mcg over one hour., PACU Recovery 1039 (Given - Provid er: Brenda Pisano RN)1051 (Given - Provider: Brenda Pisano RN) iohexol (OMNIPAQUE) 300 mg/mL solution (CANCELED) ONCE PRN, Starting on Sat07/27/15 at 0957, Until Sat07/27/15 at 1248, Intra-Operative (Intra-Procedure), Routine 0957 (Given - Provid er: Kami Bowman MD - Comment: in 50 ml saline irrigation)1014 (Given - Provider: Kami Bowman MD) ondansetron (ZOFRAN-ODT) oral disintegrating tablet 4 mg (CANCELED) 4 mg, Oral, EVERY 8 HOURS PRN, Starting on Sat07/27/15 at 1224, Until Sat07/27/15 at 1450, Nausea, Routine 1226 (Given - Provid er: Art Simons RN) oxyCODONE-acetaminophen (PERCOCET) 5-325 mg per tablet 1 tablet (CANCELED) 1 tablet, Oral, EVERY 4 HOURS PRN, Starting on Sat07/27/15 at 1017, Until Sat07/27/15 at 1450, Pain, Maximum dose of acetaminophen is 4000 mg from all sources in 24 hours., Routine 1201 (Given - Provid er: Brenda Pisano RN) No Frequency Medication Order 07/25/2015 07/26/2015 07/27/2015 scopolamine (TRANSDERM-SCOP) 1.5 mg (1 mg over 3 days) patch (COMPLETED) 1 dose, Starting on Sat07/27/15 at 0915, Until Sat07/27/15 at 0917, KARLA MAURICE: cabinet override 0917 (Given - Provid er: Karla Maurice MD) Linked Groups Order Group 1: fentaNYL (PF) 50 mcg/mL 2mL syringe (CANCELED)Jump to med 25 mcg, Intravenous, EVERY 5 MIN PRN, Pain, for 1-4 pain score, Starting on Sat07/27/15 at 1024, Until Sat07/27/15 at 1248, for 1-4 pain score Hold for respiratory rate less than 10 per minute. Maximum dose: 250 mcg over one hour., PACU Recovery Or fentaNYL (PF) 50 mcg/mL 2mL syringe (CANCELED) 50 mcg, Intravenous, EVERY 5 MIN PRN, Pain, for 5-10 pain score, Starting on Sat07/27/15 at 1024, Until 07/27/15 at 1248, for 5-10 pain score Hold for respiratory rate less than 10 per minute. Maximum dose: 250 mcg over one hour., PACU Recovery documented in this encounter Care Teams Adjunct Teacher Relationship Specialty Start Date End Date Mariluz Watts MD [address] [place] [address] PCP - General 08/22/10 documented as of this encounter
--- OUTSIDE RECORDS SUMMARY | 2024-05-18 19:58 | XMS_ITS | Encounter Summary ---
Author Organization [facility] [place] [address] Care Team Providers Care Meeting Specialist Name Role Phone Mariluz Watts MD Primary Care Provider [phone] Encounter Details Date Type Department Care Team (Latest Contact Info) Description 12/11/2016 7:33 AM EDT - 12/11/2016 11:59 PM EDT Hospital Encounter XRay at [address] [place] [address] [facility] HEMATOLOGY/[place] [address] Osteopenia Discharge Disposition: Home Social History Tobacco Use [...] 0.5 mg Tablet 12/07/2016 05/01/2018 LACTOBAC CMB #[id number] ORAL Take 1 tablet by mouth daily. 12/24/2012 05/01/2018 Lysine 500 mg Tablet Take 1 tablet by mouth daily. Reported on 12/11/2016 05/01/2018 multivitamin (THERAGRAN) tablet Take 1 tablet by mouth daily. Reported on 12/11/2016 07/03/2018 ammonium lactate (LAC-HYDRIN) 12 % lotionIndications:SK (seborrheic keratosis) Apply topically as needed for Dry Skin. Use to rough spots on thighs. 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 nut picker both scripts 02/02/14 400 g 10 [...] PM EST Office [place] [phone] [facility] [place] [address] 01/26/2025 9:50 AM EDT Appointment Mammography/[place] [address] [facility] [place] [address] 01/26/2025 10:50 AM EDT Office [place] [address] [facility] [place] [address] documented as of this encounter Procedures Procedure Name Priority Date/Time Associated Diagnosis Comments DXA CENTRAL SPINE, HIP, AND/OR WHOLE BODY (GENERIC) Routine 12/11/2016 8:24 AM EDT Osteopenia documented in this encounter Results * Dexa Central-Spine, Hip, And/Or Whole Body (12/11/2016 8:24 AM EDT) Anatomical Region Laterality Modality C-spine, Hip N/A Other Impressions 12/11/2016 2:52 PM EDT * ??Bone mineral density is stable compared to 2014. * ??Osteopenia by WHO diagnostic criteria. Estimating Fracture Risk: ? The relationship between bone mineral density (BMD) [...] independent, risk factors in addition to BMD. ? The World Health Organization (WHO) has developed [...] website which you are encouraged to review. ? DXA data sheets with BMD measurements and plots are available in [employer] under the imaging tab. Paper copies will be sent to providers without [employer] access. If you have received this report without the data sheet and do not have access to [employer], please contact Radiology Ordering Box Operator at [phone] Saturday thru Saturday 8am-4pm. Narrative 12/11/2016 2:52 PM EDT EXAMINATION: DEXA CENTRAL-SPINE, HIP, AND/OR WHOLE BODY (GENERIC) CLINICAL HISTORY: 71 year old woman with osteopenia TECHNIQUE: Scans were acquired at the lumbar spine and left forearm. FINDINGS: Lowest T-score at the diagnostic region of interest: T-score: -1.6, ROMÁN: Distal one third of the forearm, WHO diagnosis: Osteopenia. ......... Comparison......... Previous scan: 12/21/2014, Baseline scan: 09/13/2008 Total spine: Compared to the most recent scan, no significant change Compared to the baseline scan, decreased 3.6% Procedure Note Alexandro Brito MD - 12/11/2016 EXAMINATION: DEXA CENTRAL-SPINE, HIP, AND/OR WHOLE BODY (GENERIC) CLINICAL HISTORY: 71 year old woman with osteopenia TECHNIQUE: Scans were acquired at the lumbar spine and left forearm. FINDINGS: Lowest T-score at the diagnostic region of interest: T-score: -1.6, ROMÁN: Distal one third of the forearm, WHO diagnosis:Osteopenia. ......... Comparison......... Previous scan: 12/21/2014, Baseline scan: 09/13/2008 Total spine: Compared to the most recent scan, no significant change Compared to the baseline scan, decreased 3.6% IMPRESSION * Bone mineral density is stable compared to 2015. * Osteopenia by WHO diagnostic criteria. Estimating Fracture Risk: ? The relationship between bone mineral density (BMD) [...] partially independent,risk factors in addition to BMD. ? The World Health Organization (WHO) has developed [...] website which you are encouraged to review. ? DXA data sheets with BMD measurements and plots are available in [employer] the imaging tab. Paper copies will be sent to providers without [employer] access.If you have received this report without the data sheet and do not haveaccess to [employer], please contact Radiology Ordering Box Operator at [phone] Saturday thruFrid 8am-4pm. Abrahan Merlos MD IMG DEXA ORDERABLES documented in this encounter Visit Diagnoses Diagnosis Osteopenia Disorder of bone and cartilage, unspecified documented in this encounter Care Teams Meeting Specialist Relationship Specialty Start Date End Date Mariluz Watts MD [address] [place] [address] PCP - General 08/22/10 documented as of this encounter
--- OUTSIDE RECORDS SUMMARY | 2024-05-18 19:58 | XMS_ITS | Encounter Summary ---
Author Organization Formerly [facility] [place] [address] Care Team Providers Care Bench Jeweler Name Role Phone Mariluz Watts MD Primary Care Provider [phone] Encounter Details Date Type Department Care Team (Latest Contact Info) Description 07/27/2015 7:22 AM EDT - 07/27/2015 12:50 PM EDT Hospital Encounter [place] [address] Kami Bowman MD [facility] [place] [address] Nephrolithiasis (Primary Dx) Discharge Disposition: Home Social History Tobacco Use [...] Sign Reading Time Taken Comments Blood Pressure 140/80 07/27/2015 11:30 AM EDT Pulse 82 07/27/2015 11:30 AM EDT Temperature 36.8 ??C (98.2 ??F) 07/27/2015 10:19 AM E DT Respiratory Rate 18 07/27/2015 11:30 AM EDT Oxygen Saturation 97% 07/27/2015 11:30 AM EDT Inhaled Oxygen Concentration - - [...] pain medications The number for questions is [phone] before 5 PM weekdays and [phone] after 5 PM and weekends. Activity level: [...] weeks with a renal ultrasoundprior. Please call [phone] if you do not receive your appointment. [...] Refills Start Date End Date LACTOBAC CMB #[id number] ORAL Take 1 tablet by mouth daily. [...] to rough spots on thighs. 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 continuous pickling line pickler both scripts 02/02/14 400 g 10 02/01/2014 [...] of this encounter Progress Notes * Brenda Pisano RN - 07/27/2015 12:45 PM EDT Pt [...] Bowman MD - 07/27/2015 9:27 AM EDT [facility] Operative Note Patient Name: Diamond Gaming : [id number] MR#: [id number] Case Date: 07/27/2015 Surgeon: Surgeon(s) and Role: [...] Operative Note Patient Name: Diamond Gaming : [id number] MR#: [id number] Case Date: 07/27/2015 Surgeon: Surgeon(s) and Role: [...] PM EST Office [place] [address] Paula Harris PA [facility] [place] [address] 01/26/2025 9:50 AM EDT Appointment Mammography/[place] [address] Joan Deutsch APRN [facility] [place] [address] 01/26/2025 10:50 AM EDT Office Visit General Surgery at [place] [phone] Joan Deutsch APRN [facility] [place] [address] Pending Results Name Type Priority Associated Diagnoses Date /Time FILM LIBRARY-FLUORO OR [id number] ONL Imaging Routine 07/27/2015 10: 20 AM EDT Scheduled Orders Name Type Priority Associated Diagnoses Orde r Schedule FILM LIBRARY-FLUORO OR [id number] ONL Imaging Routine Once PRN (f or [...] 11:02 am) Patient Info ID #: ? [id number] ?: [birth year] (69 yrs) Name: ? DIAMOND GAMING ? Visit Date: 09/14/2015 10:43 am Performed By Performed By: ? Abel JOSE, ??Christine Attending: ?Nitesh STEINER, Bella Associate: ?Ramon STEINER, [facility] Referred By: ?KAMI BOWMAN MD Service(s) Provided ??URETRO - Retroperitoneal Complete - [id number] ? [id number] Indications ??s/p left ureteroscopy/stent, r/o residual hydro [...] 09/14/2015 11:02 am) Patient Info ID #: [id number] : [birth year] (69 yrs) Name: DIAMOND GAMING Visit Date: 09/14/2015 10:43 am Performed By Performed By: Christine Roman RDMS Attending: Bella Dowling MD Associate: Deuce Navarro MD Referred By: KAMI BOWMAN MD Service(s) Provided URETRO - Retroperitoneal Complete - [id number] Indications s/p left ureteroscopy/stent, r/o residual hydro [...] RDR/RSLT documented in this encounter Visit Diagnoses Diagnosis Nephrolithiasis- Primary Calculus of kidney Nephrolithiasis Calculus of kidney documented in this encounter Administered Medications Inactive [...] Given 07/27/2015 10:39 AM EDT 25 mcg lactated ringers infusion 1,000 mL 1,000 mL, [...] Recovery 1039 (Given - Provid er: Brenda Pisano, RN)1051 (Given - Provider: Brenda Pisano RN) [...] at 1024, Until Sat07/27/15 at 1248, for 5-10 pain score Hold for respiratory rate less than 10 per minute. Maximum dose: 250 mcg over one hour., PACU Recovery documented in this encounter Care Teams Bench Jeweler Relationship Specialty Start Date End Date Mariluz Watts MD [address] [place] [address] [address] [place] [address] PCP - General 08/22/10 documented as of this encounter
--- OUTSIDE RECORDS SUMMARY | 2024-05-18 19:58 | XMS_ITS | Encounter Summary ---
Author Organization [facility] [place] [address] Care Team Providers Care Spot Cleaner Name Role Phone Mariluz Watts MD Primary Care Provider [phone] Encounter Details Date Type Department Care Team (Latest Contact Info) Description 12/19/2015 10:28 AM EDT - 12/19/2015 11:59 PM EDT Hospital [place] [address] Gardenia Marquez MD [facility] [place] [address] Encounter for screening mammogram for breast cancer [...] Refills Start Date End Date LACTOBAC CMB #[id number] ORAL Take 1 tablet by mouth daily. 12/24/2012 05/01/2018 clarithromycin (BIAXIN) 500 mg Tablet Twice a day 12/15/201204/24 omeprazole (PRILOSEC) 10 mg capsule Take 10 mg by mouth daily. 05/16/2016 multivitamin (THERAGRAN) tablet Take 1 tablet by mouth daily. Reported on 12/11/2016 07/03/2018 ammonium lactate (LAC-HYDRIN) 12 % lotionIndications:SK (seborrheic keratosis) Apply topically as needed for Dry Skin. Use to rough spots on thighs. 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 picking machine operator both scripts 02/02/14 400 g 10 02/01/2014 [...] PM EST Office [place] [phone] Paula Harris PA [facility] [place] [address] 01/26/2025 9:50 AM EDT Appointment Mammography[place] [phone] Joan Deutsch APRN [facility] [place] [address] 01/26/2025 10:50 AM EDT Office [place] [address] Joan Deutsch APRN [facility] [place] [address] documented as of this encounter Procedures Procedure Name Priority Date/Time Associated Diagnosis Comments MAMMO SCREENING CAD AND CINDY BILATERAL Routine 12/19/2015 10:48 AM EDT Encounter for screening mammogram for breast cancer documented in this encounter Results * Mammo Digital Bilateral Screening With CAD and Tomosynthesis (12/19/2015 10:48 AM EDT) Anatomical Region Laterality Modality Breast Bilateral Mammography Impressions 12/19/2015 10:56 AM EDT IMPRESSION: No mammographic evidence of malignancy. RECOMMENDATION: * ??The [employer] and The Society of [...] earlier screening and breast MRI are appropriate. BIRADS CATEGORY 2: BENIGN A result letter has been sent to this patient by the [facility]. Narrative 12/19/2015 10:56 AM EDT REASON FOR EXAM: Screening History of breast cancer TECHNIQUE: CC and MLO views were obtained of bilateral breast. Computer aided detection was used. 3D tomosynthesis images were obtained in addition to 2D images.?Computer assisted detection was used. FINDINGS: Breast density:?There are scattered areas of fibroglandular density. There are no suspicious microcalcifications, masses, or areas of distortion. No changes compared to prior studies. .There are post surgical changes in the bilateral breast. Gardenia Marquez MD IMG MAMMO ORDERABLE S documented in this encounter Visit Diagnoses Diagnosis Encounter for screening mammogram for breast cancer documented in this encounter Care Teams Spot Cleaner Relationship Specialty Start Date End Date Mariluz Watts MD [address] [place] [address] PCP - General 08/22/10 documented as of this encounter
--- OUTSIDE RECORDS SUMMARY | 2024-05-18 19:58 | XMS_ITS | Encounter Summary ---
Author Organization [facility] [place] [address] Care Team Providers Care Procedure Writer Name Role Phone Mariluz Watts MD Primary Care Provider [phone] Encounter Details Date Type Department Care Team (Late st Contact Info) Description 07/27/2015 9:17 AM EDT Anesthesia Event [place] [address] Jose D Ramos MD [facility] [place] [address] Karla Maurice MD [facility] [place] [address] Anesthesia Record Procedure Summary Procedure Name Responsible Anesthesiologist Anesthesia Start Time Anesthesia Stop Time CYSTO, REMOVAL OF STENT, FOREIGN BODY OR CALCULUS, SIMPLE (WRVU 2.81) (Left: Bladder) Jose D Ramos MD 07/27/15 0917 07/27/15 1018 Events Date Time Event Comment 07/27/2015 0852 0917 Start 0919 AN Verify 0919 An Start Data 0923 An Induction 0926 An Intubation 0929 Anesthesia Ready 0939 Procedure Start 1013 Extubation/LMA Out To Delete (skip) the Extubation event, click the X below. 1014 an stop data 1018 Recovery or ICU Handoff Prisca ent care was transferred to the destination unit staff after review of the patient's medical history, current anesthetic/surgical status and plan, according to the Provider Handoff Checklist. 1018 Stop Meds Name Total Midazolam 2 mg fentaNYL 100 mcg Propofol 200 mg Rocuronium 50 mg PHENYLephrine 80 mcg Ondansetron 4 mg Dexamethasone 8 mg Neostigmine 5 mg Glycopyrrolate 0.6 mg ceFAZolin (ANCEF) 2g in dextrose 5% 50 m L 2 g scopolamine (TRANSDERM-SCOP) 1.5 mg (1 m g over 3 days) patch 1.5 mg Propofol INF 56.7 mg Lidocaine 4% LTA 4 mL lactated ringers infusion 1,000 mL 500 m L * Agents Name O2 Air Sevoflurane (et) Desflurane (et) * Blood No blood administrations on [...] (RETIRED) Peripheral IV Line - Single Lumen 07/27/15; 0915; metacarpal vein left (top of hand); esuq-xsx-faandq catheter system; 20 gauge, 1 in length; Melva MAURO; intradermal injection, tolerated well; 1; metacarpal vein (top of hand), left; 07/27/15; 1203 07/27/15 0915 by Beronica Morillo RN 07/27/15 1203 by Brenda Pisano, RN ETT Mask Ventilation: Ea sy (1); ETT Type: Cuffed, Oral; ETT Size: 7 mm; Ordoñez Blade: 2; Notes: Asleep, Stylette, Pre-O2; Attempts: 1; Laryngoscopy Grade: 1; ETT Placement Verified By: Auscultation, Capnometry, Visual; Secured at Teeth: 22 cm; Inserted by: MD Hiral; Removal Date: 07/27/15; Removal Time: 10107/27/15 09 by Karla Maurice MD 07/27/15 101 by Karla Maurice MD documented in this encounter Social History Tobacco [...] OR Notes * Anesthesia Postprocedure Evaluation - Karla Maurice MD - 07/27/2015 10:22 AM EDT Patient: Diamond Gaming Procedure(s) Performed: Procedure(s): CYSTO, REMOVAL OF STENT, FOREIGN BODY OR CALCULUS, SIMPLE CYSTO, STENT PLACEMENT CYSTOURETEROSCOPY, LITHOTRIPSY MODIFIER HOLMIUM LASER Actual Anesthetic: general Patient location: PACU Post-op pain: Adequate analgesia Post-op nausea: no nausea or vomiting Last Vitals: Filed Vitals: 07/27/15 0759 BP: 142/78 Pulse: 84 Temp: 36.6 ??C (97.9 ??F) Resp: 18 Post-op cardiovascular and respiratory status: is stable Level of consciousness: awake, alert and oriented Complications: no apparent complications and tolerated the procedure well Fluid Status: normal * Anesthesia Preprocedure Evaluation - Jose D Ramos - 07/26/2015 5:50 PM EDT Images from the original note were not included. Today I evaluated Diamond Gaming a 69 y.o. female. Procedure(s): @TOTAL HIP ARTHROPLASTY, ANTERIOR APPROACH MODIFIER ACCOLADE FEMORAL STEM NINA MODIFIER TRIDENT PSL ACETABULUM NINA Patient Active Problem List Diagnosis ??? Arthritis of right foot ??? Status post hip replacement ??? Dupuytren's contracture ??? S/P tubal ligation ??? Osteoarthritis of left knee ??? Bleeding diathesis ??? Aortic valve sclerosis Echo 12/25/2011- EF~60-65%, aortic sclerosis without stenosis, stage II diastolic dysfunction ??? Postoperative anemia due to acute blood loss Monitored closely, asymptomatic, BP stable, Hgb- 8.1 prior to discharge. ??? S/P Left Anterior ARSLAN- 07/22/12 (Dr. Ervin) Date: Jul 22- Surgeon: Nick Ervin MD Surgical Procedure Performed: Injection left hip with 10 cc marcaine 0.25% with epi, into skin and subcutaneous tissues (CPT [id number]) left total hip arthroplasty, anterior Hueter approach with [place] table (CPT code 09420) Left hip intraoperative radiologic examination (CPT code 74063) Amicar infusion (5 g IV load, then 1g/hr x 3 hrs) Components Used: [place] Accolade stem, size 4, 127 degrees Trident PSLcup, 52 mm, solid 32 mm ID, alumina 32-4 mm alumina head ??? Hip pain ??? S/P Right ARSLAN 03/06/2005 ([facility]) SURGERY DATE: 03/06/2005 ARCADIO STEINER, NICK Angel Surgical Procedure Performed: Right total hip arthroplasty, cementless, dmcneze-bd-rcbzzde Components Used: Nina Trident 52 shell outer diameter Femoral head 32-4 mm Nina Accolade Femoral stem size 4, 127 deg ??? Rosacea ??? GI bleeding In 2006 ??? Anxiety associated with depression ??? 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 Diverticulosis - LGIB, 2006 requiring 5Units blood ??? Degenerative joint disease Rt ARSLAN ??? Breast cancer, stage 2 Ms. Gaming presented on screening [...] hips, knees, feet, and ankles. Past Medical History Diagnosis Date ??? Anxiety associated with depression ??? Benign hypermobility syndrome ??? Diverticulosis ??? Degenerative joint disease ??? Breast cancer, stage 2 01/25/2010 ??? Rosacea 03/25/2011 ??? GI bleeding 03/25/2011 ??? Osteoarthritis of left knee 07/25/2012 ??? 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 Aortic valve sclerosis 07/25/2012 History Substance Use Topics ??? Smoking status: Former Smoker -- 1.00 packs/day for 3 years Types: Cigarettes Quit date: 09/30/1968 ??? Smokeless tobacco: Never Used ??? Alcohol Use: No Allergies Allergen Reactions ??? Hymenoptera Allergenic Extract Anaphylaxis Bee Stings ??? Tetracyclines Anaphylaxis ??? Plaquenil [Hydroxychloroquine] Rash and Other (See Comments) Hallucinations ??? Trazodone Rash and Other (See Comments) Unsure if hallucinations occur with this or plaquenil. Medications: MAR and/or home medications have been reviewed. Physical Exam: There were no vitals filed for this visit. There is no weight on file to calculate BMI. Airway Assessment: Mallampati: II TM distance: >3 FB Neck ROM: full Cardiovascular Assessment: Rhythm: regular Pulmonary Assessment: (-) wheezes and decreased breath sounds Dental Assessment: Misc Assessment: IV access: Peripheral line Other exam findings: Airway previously described as K1 FM; Gr 1 DL with Mac 3. Anesthesia Plan: ASA 3 general, with a(n) intravenous induction Plan GA, hx of aortic stenosis (severity unknown) and recent volume. Known PONV Anesthesiology Staff (Dewhirst): Pre-op summary note as per Dr. Maurice, above. For scheduled cysto,L stent removal/exchange, laser. I have reviewed the history, available records and diagnostic data, then formulated and discussed the anesthetic plan with patient and Dr. Maurice. She has known murmur with last echo showing Ao valve sclerosis (not stenosis) and some diastolic dysfunction. Anesthetic alternatives (where appropriate), procedures, risks (from common and minor to rare and and major) and consent for anesthesia were reviewed. The patient accepts that additional procedures and/or escalation of care may be necessary as dictated by the course of the procedure/anesthetic. All questions have been answered and the consent form signed. There are no pertinent advance directives. Plan: GA/OETT;IV induction;routine monitors. Region - Other Informed Consent: Anesthetic plan and risks discussed with patient. Plan discussed with CRNA. Jonas. Assessment: PAT Staff Note documented in this encounter Plan of Treatment Upcoming Encounters Date Type Department Care Team (Late st Contact Info) Description 11/16/2024 1:00 PM EST Office Visit General Surgery at [place] [phone] Paula Harris PA [facility] [place] [address] 01/26/2025 9:50 AM EDT Appointment Mammography/[place] [address] Joan Deutsch APRN [facility] [place] [address] 01/26/2025 10:50 AM EDT Office Visit [place] [address] Joan Deutsch APRN [facility] [place] [address] documented as of this encounter Visit Diagnoses Not on filedocumented in this encounter Administered Medications Inactive Administered Medications - up to 3 most recent administrations Medication Order MAR Action Action Date Dose Rate Site ceFAZolin (ANCEF) 2g in dextrose 5% 50 mL 2 g, Intravenous, ONCE, 1 dose, On Sat07/27/15 at 0645, Administer over 30 Minutes, Indication for (Active or Suspected): Prophylaxis Given 07/27/2015 9:29 AM EDT 2 g dexamethasone (DECADRON) injection PRN, Starting on Sat07/27/15 at 0932, Until Sat07/27/15 at 1018, Anesthesia Intra-op, Routine Given 07/27/2015 9:32 AM EDT 8 mg fentaNYL 50 mcg/mL multi-dose injection PRN, Starting on Sat07/27/15 at 0943, Until Sat07/27/15 at 1018, Pain, Anesthesia Intra-op, Routine Given 07/27/2015 9:43 AM EDT 50 mcg Given 07/27/2015 9:23 AM EDT 50 mcg glycopyrrolate (ROBINUL) multi-dose injection PRN, Starting on Sat07/27/15 at 0953, Until Sat07/27/15 at 1018, Anesthesia Intra-op, Routine Given 07/27/2015 9:53 AM EDT 0.6 mg lidocaine (XYLOCAINE) 4 % external solution PRN, Starting on Sat07/27/15 at 0926, Until Sat07/27/15 at 1018, Anesthesia Intra-op Given 07/27/2015 9:26 AM EDT 4 mLs midazolam (PF) (VERSED) 1 mg/mL multi-dose injection PRN, Starting on Sat07/27/15 at 0915, Until Sat07/27/15 at 1018, Sleep, Anesthesia Intra-op, Routine Given 07/27/2015 9:15 AM EDT 2 mg neostigmine (PROSTIGMINE) multi-dose injection PRN, Starting on Sat07/27/15 at 0950, Until Sat07/27/15 at 1018, Anesthesia Intra-op, Routine Given 07/27/2015 9:53 AM EDT 5 mg ondansetron (ZOFRAN) injection PRN, Starting on Sat07/27/15 at 1001, Until Sat07/27/15 at 1018, Nausea, Anesthesia Intra-op, Routine Given 07/27/2015 10:01 AM EDT 4 mg PHENYLephrine HCl in NS (PF) (TOSHA-SYNEPHRINE) 0.8 mg/10 mL (80 mcg/mL) multi-dose injection Syrg PRN, Starting on Sat07/27/15 at 0940, Until Sat07/27/15 at 1018, Anesthesia Intra-op, Routine Given 07/27/2015 9:40 AM EDT 80 mcg propofol (DIPRIVAN) 10 mg/mL bolus injection (Anesthesia) PRN, Starting on Sat07/27/15 at 0923, Until Sat07/27/15 at 1018, Anesthesia Intra-op Given 07/27/2015 9:23 AM EDT 200 mg propofol (DIPRIVAN) infusion CONTINUOUS PRN, Starting on Sat07/27/15 at 0928, Until Sat07/27/15 at 1018, Anesthesia Intra-op, Routine New Bag 07/27/2015 9:28 AM EDT 30 mcg/kg/min 16.2 mL/hr rocuronium (ZEMURON) multi-dose injection PRN, Starting on Sat07/27/15 at 0923, Until Sat07/27/15 at 1018, Anesthesia Intra-op, Routine Given 07/27/2015 9:23 AM EDT 50 mg scopolamine (TRANSDERM-SCOP) 1.5 mg (1 mg over 3 days) patch 1 dose, Starting on Sat07/27/15 at 0915, Until Sat07/27/15 at 0917, KARLA MAURICE: cabinet override Given 07/27/2015 9:17 AM EDT 1.5 mg documented in this encounter Care Teams Procedure Writer Relationship Specialty Start Date End Date Mariluz Watts MD [address] [place] [address] [address] [place] [address] PCP - General 08/22/10 documented as of this encounter
--- OUTSIDE RECORDS SUMMARY | 2024-05-18 19:58 | XMS_ITS | Encounter Summary ---
[place] [address] Care Team Providers Care Makeup Sales Advisor Name Role Phone Mariluz Watts MD Primary Care Provider Reason for Visit * Reason Comments Follow Up Surgery Encounter Details Date Type Department Care Team (Late st Contact Info) Description 12/11/2016 9:15 AM EDT Office [place] [address] Bella Ly APRN [facility] [place] [address] History of breast cancer Social History Tobacco [...] Progress Notes * Bella Ly APRN - 12/11/2016 9:15 AM EDT Diamond is a 70 y.o. [...] carcinoma with lobular features Tumor Grade: Intermediate Cxvolm-Uhwfd-Cspivejnnz Score: 7 Tubular Differentiation: 3 Mitotic Rate: [...] sentinel nodes: 2 (Specimen A - Right Vandervoort node) No. positive for carcinoma: 1 (H&E) No. with IHC (+) cells only: 0 (cells not seen by H&E, see Note*) No. negative for carcinoma: 1 (both H&E and IHC For positive nodes: Largest kristi deposit 0.2 cm Extranodal extension Absent Estrogen/Progestin receptors: Performed on blocks C2 and C11 ER immunoreactivity: Positive (see Diagnostic hanna*) ND immunoreactivity: Positive (see Diagnostic hanna*) HER2/shonda expression by FISH: Negative iKmi was returned to the OR for deep margin excision. This was negative for residual malignancy. Kimi declined chemotherapy and proceeded to whole breast xrt.She completed 5 years of arimidex. She is still bothered by her smaller than expected breast size after reduction. On exam, well appearing and in nad. [...] present No Date of last follow up 12/11/16 A/P Doing well without evidence of recurrence or metastatic disease.Plan follow up in 1 year with bilateral mammogram. She will see Dr. Merlos later today. documented in this encounter Plan of Treatment Upcoming Encounters Date Type Department Care Team (Late st Contact Info) Description 11/16/2024 1:00 PM EST Office [place] [phone] Paula Harris PA [facility] [place] [address] 01/26/2025 9:50 AM EDT Appointment Mammography/[place] [address] Joan Deutsch APRN [facility] [place] [address] 01/26/2025 10:50 AM EDT Office [place] [address] Joan Deutsch APRN [facility] [place] [address] documented as of this encounter Results * Mammo Screen CAD and Irvin Bilat (Generic) (12/12/2017 1:00 PM EDT) Anatomical [...] BIRADS CATEGORY 2: BENIGN FINDINGS * ??The [employer] and The Society of [...] breast documented in this encounter Care Teams Makeup Sales Advisor Relationship Specialty Start Date End Date Mariluz Watts MD [address] [place] [address] PCP - General 08/22/10 documented as of this encounter
--- OUTSIDE RECORDS SUMMARY | 2024-05-18 19:58 | XMS_ITS | Encounter Summary ---
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 Name Role Phone Mariluz Watts MD Primary Care Provider [phone] Reason for Visit * Reason Comments Nephrolithiasis * Auth/Cert Specialty Diagnoses / Procedures Referred By John lyons Referred To Contact Diagnoses Pain Procedures CYSTO, STENT PLACEMENT Referral ID Status Reason Start Date Expiration Date Visits Re quested Visits Authorized [id number] 1 1 Encounter Details Date Type Department Care Team (Latest Contact Info) Description 07/11/2015 1:58 PM EDT - 07/13/2015 2:12 PM EDT Hospital Encounter [address] [place] [address] Stephen Chauhan III, MD [facility] [place] [address] Dk Polanco MD [facility] [place] [address] Pain; Kidney stone Discharge Disposition: Home Social History Tobacco Use [...] Sign Reading Time Taken Comments Blood Pressure 130/88 07/13/2015 10:00 AM EDT Pulse 79 07/13/2015 10:00 AM EDT Temperature 37 ??C (98.6 ??F) 07/13/2015 10:00 AM EDT Respiratory Rate 18 07/13/2015 10:00 AM EDT Oxygen Saturation 100% 07/13/2015 10:00 AM EDT Inhaled Oxygen Concentration - - Weight 96.2 kg (212 lb) 07/11/2015 2:06 PM EDT Height 165.1 cm (5' 5) 07/11/2015 2:06 PM EDT Body Mass Index 35.28 07/11/2015 2:06 PM EDT documented in this encounter Discharge Summaries * Harsha Ventura MD - 07/13/2015 7:21 AM EDT Inpatient - Discharge Summary Patient Name: Diamond Gaming Patient Age: 69 y.o. Birthdate: 1945 Admit date: 07/11/2015 Discharge date and time: 07/13/2015 Attending Physician: Dk Polanco MD Discharge Diagnoses (Hospital Problems) and Secondary Diagnoses (Chronic Problems): Left ureteral stone Active Non-Hospital Problems Diagnosis ??? Arthritis of right foot ??? [...] epi, into skin and subcutaneous tissues (CPT [id number]) left total hip arthroplasty, anterior Hueter approach with Underwood table (CPT code 11875) Left hip intraoperative radiologic examination (CPT code 65411) Amicar infusion (5 g IV load, then 1g/hr x 3 hrs) Components Used: [place] Accolade stem, size 4, 127 degrees Trident PSLcup, 52 mm, solid 32 mm ID, alumina 32-4 mm alumina head ??? Hip pain ??? S/P Right ARSLAN 03/06/2005 ([facility]) SURGERY DATE: 03/06/2005 AR[facility]IO STEINER, NICK Angel Surgical Procedure Performed: Right total hip arthroplasty, cementless, [id number] Components Used: [place] Trident 52 shell outer diameter Femoral head 32-4 mm Nicole Accolade Femoral stem size 4, 127 deg ??? Rosacea ??? GI bleeding In 2005 ??? Anxiety associated with depression ??? Benign [...] and thumb, hips, knees, feet, and ankles. Operations/Major Procedures: Operations: Procedure(s): CYSTO, STENT PLACEMENT CYSTO, RETROGRADE, URETEROPYELOGRAPHY History of Presentation: Diamond Gaming is a 69 y.o. female with a remote history of nephrolithiasis in the past, who presents in transfer from [facility] with a 3-4 mm mid left ureteral stone with mild hydronephrosis, as well as a dirty UA and question of urosepsis. Diamond first noticed increased urinary frequency and urgency about 2 weeks ago. At the time, she had company, so she put off doing to see her PCP. Lats night, she then developed nausea, vomiting and left sided flank pain, which prompted her to present to the [facility] ED early this morning. There, labs were notable for a WBC of 8.4, SCr of 0.7, and lactate of 2.39. She was febrile to 38.4 at noon and her BPs were soft (SBP 70-80s), which responded to fluid boluses. UA was positive for blood, nitrites, WBCs and bacteria. She was given 1 gram IV Rocephin and a CT scan was performed, which showed a 3-4 mm mid left ureteral stone with associated mild hydronephrosis, and bilateral per-nephric stranding. Upon evaluation in the ED, she is afebrile, tachycardic to 100s, but SBPs 120-130s. Of note, Diamond does have a history of passing a kidney stone in 1996 and she also has a history ofa bleeding disorder, involving her platelets. She saw a hemologist told her that if she ever neededa surgery, then she should received Amicar pre-operatively. Hospital Course: Ms. Gaming was admitted to [facility] 07/11/15. A stent was placed in her Left ureter the same day. She received IV antibiotics for 2 days and when her urine culture results from [facility] returned she was transitioned to a course of oral antibiotics. Her blood cultures were negative. Overall she progressed asexpected and was discharged home on hospital day 3. Important Studies and Lab Data: Labs: Recent Labs 07/13/1521407/12/1530207/11/15 1500 WBC 12.6* 13.2* 14.3* HGB 11.7 11.6 12.1 PLATELET 172 152 159 Recent Labs 07/13/1521407/12/1530207/11/15 1500 NA 142 141 140 K 3.9 3.9 3.8 BUN 14 08 15 CREATININE 0.83 0.55* 0.57* Discharge Conditions/Prognosis: Stable Discharge to: Home Discharge Medications: Your Medications New Medications Dose Details acetaminophen 325 mg Tab Commonly known as: TYLENOL Take 2 tablets by mouth every 6 hours. 650 mg Quantity: 30 tablet Refills: 1 ciprofloxacin HCl 500 mg Tab Commonly known as: CIPRO Take 1 tablet by mouth 2 times daily for 15 days. 500 mg Quantity: 30 tablet Refills: 0 docusate sodium 100 mg Cap Commonly known as: COLACE Take 1 capsule by mouth 2 times daily for 10 days. 100 mg Quantity: 10 capsule Refills: 0 flu vacc (65 yrs+) (PF) 180 mcg/0.5 mL Syrg Commonly known as: FLUZONE HD Inject 0.5 mLs into the muscle once for 1 dose. 0.5 mL Quantity: 0.5 mL Refills: 0 oxybutynin 5 mg Tab Commonly known as: DITROPAN Take 1 tablet by mouth 2 times daily. 5 mg Quantity: 180 tablet Refills: 3 tamsulosin 0.4 mg Cp24 Commonly known as: FLOMAX Take 1 capsule by mouth daily. 0.4 mg Quantity: 90 tablet Refills: 3 Continued medications, unchanged Dose Details ammonium lactate 12 % Lotn Commonly known as: LAC-HYDRIN Apply topically as needed for Dry Skin. Use to rough spots on thighs. 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 500mg, x 4 for dental procedures 4 tablet Refills: 0 cholecalciferol (Vitamin D3) 1,000 unit Tab Commonly known as: Vitamin D Take 1 tablet by mouth daily. 1000 Units Quantity: 60 tablet Refills: 5 citalopram 20 mg Tab Commonly known as: CeleXA Take 20 mg by mouth daily. 20 mg Refills: 0 ibuprofen 600 mg Tab Commonly known as: ADVIL;MOTRIN Take 600 mg by mouth 4 times daily. 600 mg Refills: 0 metroNIDAZOLE 1 % Gel Commonly known as: METROGEL Apply topically daily. Quantity: 45 g Refills: 10 multivitamin Tab Commonly known as: THERAGRAN Take 1 tablet by mouth daily. 1 tablet Refills: 0 omeprazole 10 mg Cpdr Commonly known as: PriLOSEC Take 10 mg by mouth daily. 10 mg Refills: 0 Updated Allergies/ADRs: Allergies Allergen Reactions ??? Hymenoptera Allergenic Extract Anaphylaxis Bee Stings ??? Tetracyclines Anaphylaxis ??? Plaquenil [Hydroxychloroquine] Rash and Other (See Comments) Hallucinations ??? Trazodone Rash and Other (See Comments) Unsure if hallucinations occur with this or plaquenil. Instructions Given to Patient at Discharge: Patient Instructions Call your doctor for: ??? fevers greater than 101 ??? severe nausea or vomiting ??? increasing pain not controlled by pain medications The number for questions is [phone] before 5 PM weekdays and [phone] after 5 PM and weekends. Activity level: [...] react quickly if necessary. Shower/Bath: No restrictions. Prescription medications: You may resume all of your home medications. You have been given three new medications: tamsulosin, oxybutynin, and ciprofloxacin. The tamsulosin and oxybutynin will help you with symptoms associated with your stent including urinary frequency and bladder spasm. Ciprofloxacin is an antibiotic used to treat your urinary tract infection. Please take this twice daily until you return to the Urology clinic for removal of your stent. You may have extra pills; discuss finishing the course when you return. Stent Discomfort: Most patients experience some degree [...] up Appointments: Follow-up appointment will be scheduled with one of the Urology Physicians in about 10 days for stent removal in the office. Please call [phone] if you do not receive your appointment. It is important to remember that your ureteral stent cannot stay in place permanently. If it remains in place too long it may become encrusted with stone and require additional surgery to remove it. Please call our office if you do not receive your appointment or if you need to reschedule. Discharge References/Attachments: Discharge References/Attachments KIDNEY STONE DIET (DOMINICAN) Electronically Signed By: HARSHA VENTURA MD 07/13/2015 documented in this encounter Discharge Instructions * Patient Instructions* Harsha Ventura MD - 07/12/2015 12:13 PM EDT Call your doctor for: ??? fevers greater than 101 ??? severe nausea or vomiting ??? increasing pain not controlled by pain medications The number for questions is [phone] before 5 PM weekdays and [phone] after 5 PM and weekends. Activity level: [...] react quickly if necessary. Shower/Bath: No restrictions. Prescription medications: You may resume all of your home medications. You have been given three new medications: tamsulosin, oxybutynin, and ciprofloxacin. The tamsulosin and oxybutynin will help you with symptoms associated with your stent including urinary frequency and bladder spasm. Ciprofloxacin is an antibiotic used to treat your urinary tract infection. Please take this twice daily until you return to the Urology clinic for removal of your stent. You may have extra pills; discuss finishing the course when you return. Stent Discomfort: Most patients experience some degree [...] up Appointments: Follow-up appointment will be scheduled with one of the Urology Physicians in about 10 days for stent removal in the office. Please call [phone] if you do not receive your appointment. It is important to remember that your ureteral stent cannot stay in place permanently. If it remains in place too long it may become encrusted with stone and require additional surgery to remove it. Please call our office if you do not receive your appointment or if you need to reschedule. * Attachments The following attachments cannot be sent through Care Everywhere. * KIDNEY STONE DIET (DOMINICAN) documented in this encounter Medications at Time of Discharge Medication Sig Dispensed Refills Start Date End Date LACTOBAC CMB #[id number] ORAL Take 1 tablet by mouth daily. 12/24/2012 05/01/2018 clarithromycin (BIAXIN) 500 mg Tablet Twice a day 12/15/201204/24 docusate sodium (COLACE) 100 mg Capsule Take 1 capsule by mouth 2 times daily for 10 days. 10 capsule 0 07/13/2015 07/23/2015 flu vacc, 65 yrs+,, PF, (FLUZONE HD) 180 mcg/0.5 mL Syringe Inject 0.5 mLs into the muscle once for 1 dose. 0.5 mL 0 07/13/2015 07/13/2015 ciprofloxacin HCl (CIPRO) 500 mg Tablet Take 1 tablet by mouth 2 times daily for 15 days. 30 tablet 0 07/13/2015 07/28/2015 acetaminophen (TYLENOL) 325 mg Tablet Take 2 tablets by mouth every 6 hours. 30 tablet 1 07/13/2015 07/26/2015 oxybutynin (DITROPAN) 5 mg Tablet Take 1 [...] to rough spots on thighs. 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 Pt left by wheelchair, accompanied by staff, at 1405; no complications. * Solitario Meyers RN - 07/13/2015 9:42 AM EDT Record reviewed and patient discussed with multidisciplinary team. No discharge needs identified atthis time. Clinical Support Manager remains available as needed for coordination of care and discharge planning.prior to discharge. RN to review instructions, medication,y fluid intake, activity and f/u appointment prior to discharge.SOLITARIO MEYERS RN 07/13/2015 * Harsha Ventura MD - 07/12/2015 7:11 AM EDT Patient Daily Progress Note Date: 07/12/2015 Patient: Diamond Gaming Attending: STEPHEN CHAUHAN III, EINAR F Admit Date: 07/11/2015 Hospital Day: 2 Problem List: There are no hospital problems to display for this patient. Hospital Course: Ms. Gaming is a 69 yo WF with a PMH of nephrolithiasis transferred to [facility] with a 3-4mm L ureteral stone, mild hydronephrosis, positive UA, and questionable urosepsis. 24 Hour Events: - Stent placed in OR - Started on zosyn - 1 episode of tachycardia, self resolved - WBC trending down Subjective: No complaints this morning other than wanting to eat and stop her IVF. Denies SOB, CP, N/V. Ambulating. Physical Exam: Last Set of Vitals and range of vitals over past 24 hours: Last value Range last 24 hrs Temperature Temp: 37 ??C (98.6 ??F) Temp: [36.6 ??C (97.9 ??F)-37.8 ??C (100 ??F)] Heart Rate Heart Rate: 73 Heart Rate: [73-112] Blood Pressure BP: 98/62 mmHg BP: (98-132)/(53-86) Respiratory Rate Resp: 16 Resp: [16-25] SpO2 SpO2: 97 % SpO2: [90 %-97 %] Gen: Alert and oriented, resting in bed HEENT: normocephalic atraumatic CV: RRR Pulm: Wearing NC, breathing comfortably GI: Abdomen soft, non-distended, non-tender : Crowley in place draining clear yellow urine Ext: 1+ edema bilateral feet Intake & Output I/O last 3 completed shifts: In: 1103 [I.V.:1103] Out: 1665 [Urine:1665] Laboratory (Last 24 Hours): Last 3 wbc, hgb, hct plt Recent Labs 07/12/15 0303 07/11/15 1500 WBC 13.2* 14.3* HGB 11.6 12.1 HCT 35.2 37.0 PLATELET 152 159 Last 3 Lytes Recent Labs 07/12/15 0303 07/11/15 1500 NA 141 140 K 3.9 3.8 CL 106 105 CO2 22 21* BUN 11 15 CREATININE 0.55* 0.57* Microbiology: Blood Culture: Results at OSH Urine Culture: Results at OSH, repeat here pending Assessment: 69 yo WF with PMH of kidney stones now with L ureteral stone, currently doing well s/p L stent placement and IV zosyn. Will continue to treat with zosyn until culture results are obtained, then will transition to oral antibiotics and discharge home. Plan: Neuro/Pain: - tylenol and oxy for pain - continue home celexa CV: - stable Pulmonary: - stable, wean to RA, ISS GI: - regular diet - colace, nexium FEN: - discontinue IVF today - monitor lytes, replete as needed Heme/ID: - Continue zosyn until culture data obtained Renal: - D/C Crowley today - flomax 0.4mg qd Prophylaxis: - SCDs Disposition: Full code, floor status, anticipate discharge home soon. HARSHA VENTURA MD 07/12/2015 * Julieta Montgomery RN - 07/11/2015 9:40 PM EDT Report rec'd from Eunice in PACU. Pt transferred to unit and placed in rm 213. Awake and alert. * Bridget Quintero - 07/11/2015 9:38 PM EDT Urology Post-Operative Progress Note Surgery: Cysto with stent placement Patient seen: On Subjective/Events: Patient denies chest pain, shortness of breath, dizziness, headache, abdominal pain, nausea, vomiting. Pain well-controlled. Flank pain gone. Objective: Vitals: Temp: [36.6 ??C (97.9 ??F)-37.8 ??C (100 ??F)] Heart Rate: [81-112] Resp: [16-25] BP: (101-132)/(53-86) SpO2: [92 %-97 %] I/O last 3 completed shifts: In: 600 [I.V.:600] Out: - I/O this shift: In: - Out: 215 [Urine:215] Exam: General: NAD, awake/alert, responds to questions CV: RRR, no m/r/g appreciated Resp: Breathing comfortably on RA, lungs cta b/l Abd: Soft, non-tender, non-distended. Mild discomfort lower midline palpation : Crowley in place, draining good amounts of pale pink urine Recent Labs 07/11/15 1500 WBC 14.3* HGB 12.1 HCT 37.0 PLATELET 159 NA 140 K 3.8 CL 105 CO2 21* BUN 15 CREATININE 0.57* A/P: 69 y.o. year old female POD#0 s/p cysto with stent placement. Vitals are stable and patient ismaking good urine. - Continue all post-operative care - No concern for sepsis at this time - Patient on zosyn - NPO for tonight BRIDGET QUINTERO MD documented in this encounter H&P Notes * Jennifer Suresh MD - 07/11/2015 2:32 PM EDT UROLOGY H&P HPI: Diamond Gaming is a 69 y.o. female with a remote history of nephrolithiasis in the past, who presents in transfer from [facility] with a 3-4 mm mid left ureteral stone with mild hydronephrosis, as well as a dirty UA and question of urosepsis. Diamond first noticed increased urinary frequency and urgency about 2 weeks ago. At the time, she had company, so she put off doing to see her PCP. Lats night, she then developed nausea, vomiting and left sided flank pain, which prompted her to present to the [facility] ED early this morning. There, labs were notable for a WBC of 8.4, SCr of 0.7, and lactate of 2.39. She was febrile to 38.4 at noon and her BPs were soft (SBP 70-80s), which responded to fluid boluses. UA was positive for blood, nitrites, WBCs and bacteria. She was given 1 gram IV Rocephin and a CT scan was performed, which showed a 3-4 mm mid left ureteral stone with associated mild hydronephrosis, and bilateral per-nephric stranding. Upon evaluation in the ED, she is afebrile, tachycardic to 100s, but SBPs 120-130s. Of note, Diamond does have a history of passing a kidney stone in 1996 and she also has a history ofa bleeding disorder, involving her platelets. She saw a hemologist told her that if she ever neededa surgery, then she should received Amicar pre-operatively. Past Medical History Past Medical History Diagnosis Date ??? Anxiety associated with depression ??? Benign hypermobility syndrome ??? Diverticulosis ??? Degenerative joint disease ??? Breast cancer, stage 2 01/25/2010 ??? Rosacea 03/25/2011 ??? GI bleeding 03/25/2011 ??? Osteoarthritis of left knee 07/25/2012 ??? 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 Aortic valve sclerosis 07/25/2012 Past Surgical History Past Surgical History Procedure Laterality Date ??? Created by interface ARTHROSCOPY KNEE,MENISCECTOMY SINGLE WITH SHAVING / LEFT Procedure Date: 06/04/2006 ??? Created by interface COLONOSCOPY (ENDO) Procedure Date: 08/18/2006 ??? Created by interface [id number] Procedure Date: 01/27/2007 ??? Created by interface Entered not Verified Procedure Date: 07/28/2010 ??? Created by interface EXCISION LESION,BREAST W PREOP.MARKER(NEEDLE LOC.) / LEFT Procedure Date: 03/24/2010 ??? Created by interface LYMPH NODE BIOPSY,DEEP AXILLARY / RIGHT/SENTINEL NODE EXCISION Procedure Date: 03/24/2010 ??? Created by interface MASTECTOMY,PARTIAL. / RIGHT Procedure Date: 04/04/2010 ??? Created by interface MASTECTOMY,PARTIAL. / RIGHT/WITH NEEDLE LOC. Procedure Date: 03/24/2010 ??? Created by interface REDUCTION MAMMOPLASTY, BILATERAL / BILATERAL Procedure Date: 03/24/2010 ??? Created by interface SENTINEL NODE INJECTION/ RIGHT/BREAST Procedure Date: 03/24/2010 ??? Created by interface TOTAL HIP ARTHROPLASTY / RIGHT/ACCOLADE FEM.STEM/TRIDENT KONSTANTIN. Procedure Date: 03/06/2005 ? ? Pro exc skin benig >4cm trunk, arm, leg 03/27/2011 EXC BENIGN LESION; INDRA >4.0CM, TRUNK performed by TIRSO CHAUDHARI at [facility] MAIN OR ??? Pro colonoscopy, diagnostic 02/29/2012 COLONOSCOPY, DIAGNOSTIC performed by RAJAT KUO at [facility] ENDOSCOPY ??? Pro total hip arthroplasty 07/22/2012 @TOTAL HIP ARTHROPLASTY, ANTERIOR APPROACH performed by NICK ERVIN at [facility] MAIN OR Social History History Social History ??? Marital Status: Spouse Name: N/A Number of Children: N/A ??? Years of Education: N/A Occupational History ??? Not on file. Social History Main Topics ??? Smoking status: Former Smoker -- 1.00 packs/day for 3 years Types: Cigarettes Quit date: 09/30/1968 ??? Smokeless tobacco: Never Used ??? Alcohol Use: No ??? Drug Use: No ??? Sexual Activity: No Other Topics Concern ??? Not on file Social History Narrative Family History Family History Problem Relation Age of Onset ??? Prostate Cancer Paternal Grandfather ??? Breast Cancer 80's ??? Breast Cancer ??? Breast Cancer Allergies Allergen Reactions ??? Hymenoptera Allergenic Extract Anaphylaxis Bee Stings ??? Tetracyclines Anaphylaxis ??? Plaquenil [Hydroxychloroquine] Rash and Other (See Comments) Hallucinations ??? Trazodone Rash and Other (See Comments) Unsure if hallucinations occur with this or plaquenil. Home Medications Lactobacillus MV Vitamin D3 Omeprazole Amoxicillin for dental procedures Citalopram Flonase Ibuprofen Metronidazole topical Prednisone Review of Systems As per HPI. All other systems negative. EXAMINATION: Temp: [37.5 ??C (99.5 ??F)-37.8 ??C (100 ??F)] Heart Rate: [95-101] Resp: [21-25] BP: (117-130)/(61-72) General: Oriented to person, place and time. NAD Cardiopulm: tachycardic, non labored breathing Abdomen: benign without masses, rebound, guarding, or tenderness. Mild left-sided CVA tenderness Musculoskeletal: good strength in bilateral upper and lower extremities Neurologic: grossly normal EXT : moves all 4, no edema, no calf tenderness Recent Labs 07/11/15 1500 WBC 14.3* HGB 12.1 HCT 37.0 PLATELET 159 Cultures: Blood and urine cultures at [facility] and [facility] pending Imaging: CT abd/pelvis 07/11/2015: 3-4 mm mid left ureteral stone with associated mild hydronephrosis Bilateral duarte-nephric stranding Assessment: Diamond Gaming is a 69 y.o. female with a 4 mm mid ureteral stone with mild hydronephrosis, in the context of a likely urinary tract infection. Given her recent fevers and elevated lactate, as well as hypotension at the OSH, urgent stent left ureteral stent placement with broad spectrum antibioticsis warranted. This procedure has been fully reviewed with the patient and written informed consent has been obtained. Plan: Admit to Urology Neuro: scheduled Tylenol, oxycodone CV: currently stable, history of aortic stenosis, will try to obtain records from PCP Resp: stable on room air GI: colace BID : continue monitoring UOP, Flomax FEN: replace lytes prn, LR @ 50 cc/hr Heme: Hgb and Plts stable, but history of ?platelet disorder ID: afebrile currently, leukocytosis, IV Zosyn Prophylaxis: Nexium, SCDs Dispo: stable on floor status currently OR: Booked, marked, consented for left ureteral stent placement with Dr. Chauhan. I have discussed the findings and plans with Dr. Polanco. documented in this encounter ED Notes * Marily Lomeli RN - 07/11/2015 4:58 PM EDT Report given to OR and floor notified * Miah Smiley - 07/11/2015 4:31 PM EDT Emergency Department Diamond Gaming is a 69 y.o. female who presents to [facility] with infected obstructing L renal stone. History of Present Illness / Review of Systems The patient is resting comfortably in the bed Physical Exam: I reviewed the patient???s vitals as recorded in the electronic medical record and ED nursing notes. The patient was non-toxic appearing and in no obvious distress. Assessment/Plan: This 69 y.o. female was transferred from an outside hospital emergency department to receive specialty care provided by the Urology service for infected renal stone. I discussed the case with resident/fellow of the accepting service. The patient was deemed to be stable and not requiring significant involvement from the attending emergency physician at this time. The accepting service has assumed further care of the patient. Please see their notes for any further clinical details. Miah Smiley Jr., MD 08/02/15 0616 * Marily Lomeli RN - 07/11/2015 3:42 PM EDT Pt resting room, reports comfort * Devaughn Muhammad - 07/11/2015 3:37 PM EDT Chief Complaint Patient presents with ??? Nephrolithiasis HPI 69-year-old female presents in transfer from [facility] with left-sided nephrolithiasis and transient hypotension with concerns of urosepsis. Patient reports that her symptoms began 2 weeks prior to this presentation. She reports that she initially felt urgency and frequency. She was not seen by a provider. She reports that she planned to call her primary care physician this morning. However, last night at 2 AM she had a left sided flank pain. This was associated with nausea and vomiting. She reportsthe pain was an ache. Reports radiation anteriorly as well as chills. Denies any history of kidney disease. She is not a diabetic. Presented to [facility] CT scan of the abdomen was performed and was signif icant for left-sided nephrolithiasis. She was given 2 L of IV fluids as well as antibiotics. Deniesalleviating exacerbating factors. Allergies Allergen Reactions ??? Hymenoptera Allergenic Extract Anaphylaxis Bee Stings ??? Tetracyclines Anaphylaxis ??? Plaquenil [Hydroxychloroquine] Rash and Other (See Comments) Hallucinations ??? Trazodone Rash and Other (See Comments) Unsure if hallucinations occur with this or plaquenil. Review of Systems Constitutional: Positive for chills. Negative for fever. HENT: Negative for rhinorrhea. Eyes: Negative for visual disturbance. Respiratory: Negative for shortness of breath. Cardiovascular: Negative for chest pain. Gastrointestinal: Positive for nausea and abdominal pain. Negative for vomiting. Genitourinary: Negative for dysuria. Musculoskeletal: Negative for back pain. Skin: Negative for rash. Neurological: Negative for weakness and numbness. Physical Exam Constitutional: She is oriented to person, place, and time. She appears well- developed. No distress. HENT: Head: Normocephalic and atraumatic. Eyes: Conjunctivae are normal. Right eye exhibits no discharge. Left eye exhibits no discharge. Cardiovascular: Tachycardic Pulmonary/Chest: Effort normal. No respiratory distress. She has no wheezes. Abdominal: Soft. She exhibits no distension. There is no tenderness. There is no rebound and no guarding. Musculoskeletal: She exhibits tenderness. She exhibits no edema. Left CVA tenderness Neurological: She is alert and oriented to person, place, and time. Skin: Skin is warm and dry. She is not diaphoretic. Psychiatric: She has a normal mood and affect. Her behavior is normal. Nursing note and vitals reviewed. Procedures MDM 69 -year-old female who presents with left-sided obstructing renal stone. On exam the patient was tachycardic and febrile. Physical exam was significant for left-sided CVA tenderness. The patient received 2 L of IV fluids. She received antibiotics at the outside hospital. On my examination she appeared comfortable. Urology was at the patient's bedside shortly upon arrival to the emergency department. Urinalysis was performed and was unremarkable. Urine culture is pending at this time. I reviewed the patient's labs showed a leukocytosis of 14.3, no anemia, and no clinically significant electrolyte abnormality. Lactate was performed and was unremarkable. The patient was admitted to urology for further management. Devaughn Muhammad DO Resident 07/11/15 232 * Marily Lomeli RN - 07/11/2015 3:31 PM EDT MD at bedside to await dispo documented in this encounter Miscellaneous Notes * Initial Assessments - Ladonna Rocha RD - 07/13/2015 11:24 AM EDT Nutrition Intervention for the Management of Kidney Stone Disease Assessment/Nutrition Diagnosis: Pt at increased nutritional lithogenic risk related to: - sub optimal calcium intake not timed with meals - intake of high-oxalate foods (spcecially with low calcium intake) - possible excessive intake of some supplements (i.e. Vitamin C) - excessive calorie intake resulting in overweight Interview: Pt reports that she has been told it is likely that she has a very common type of kidneystone (likely calcium-oxalate). She has passed a stone prior to this admission however, she has never had a kidney stone analysis. We reviewed tips for decreasing her risk of forming another stone. Pt verbalized a good understand. Handouts provided. Intervention: - Recommended timing of dietary calcium with meals (3-400 grams/serving) - Instructed pt on Low Sodium Food Choices (under 2 grams/day) - Instructed pt on Low-Oxalate Food choices - Provided diet education materials on: 1. Dietary Guidelines for Kidney Stone Formers 2. Seasoning foods Without Salt 3. Low Oxalate Food Lists and Goals Monitor/Evaluate: 1) Pt will follow up with out-patient services 2) Contact Information for [facility] Dietitian Yahir GEE, provided to patient. Thank you Ladonna Rocha MS RD LD * Plan of Care - Kath Deluna RN - 07/13/2015 11:12 AM EDT Problem: General Plan of Care Goal: Plan of Care Review Outcome: Ongoing (Interventions Implemented as Appropriate) 07/13/15 0800 Coping/Psychosocial Response Interventions Plan of Care Reviewed with patient OUTCOME EVALUATION NOTE: OUTCOME SUMMARY: Pt is getting ready for discharge today; very detail-oriented. PLAN MOVING FORWARD: Plans to meet ride at 1400. INDIVIDUALIZED FALL PREVENTION: Assistance: Pt knows to call for assistance if needed. Supervision: Pt independent in room. Surveillance: Masimo; purposeful rounding CPG GOAL OUTCOME EVALUATION: Goal: Individualization and Mutuality 07/12/15 0659 Mutuality/Individual Preferences What anxieties, fears or concerns do you have about your health or care? previous reaction to pain medication was hallucinations What questions do you have about your health or care? no What information would help us give you more personalized care? none Goal: Fall Prevention-Safe Patient Handling 07/13/15 0800 Aleman Fall Risk History of Falling 25 Secondary Diagnosis 15 Ambulatory Aids 0 Intravenous Therapy/Heparin/Saline Lock 20 Gait/Transferring 0 Mental Status 0 Score 60 OTHER Aleman Fall Risk High Safety Interventions Safety Precautions/Fall Reduction fall reduction program maintained Musculoskeletal Interventions Activity/Level of Assistance with stand by assist Positioning independent Goal: Infection Control 07/13/15 0800 Safety Interventions Infection Prevention rest/sleep promoted Coping/Psychosocial Response Interventions Counseling personal strengths integrated Goal: Discharge Needs Assessment 07/12/15 0707/12/15 2224 Self-Care Equipment Currently Used at Home cane, straight -- Living Environment Transportation Available -- car;family or friend will provide CRC will be sure that discharge needs are met. * Plan of Care - Deidra London RN - 07/13/2015 6:53 AM EDT Problem: General Plan of Care Goal: Plan of Care Review Outcome: Ongoing (Interventions Implemented as Appropriate) 07/12/151999 Coping/Psychosocial Response Interventions Plan of Care Reviewed with patient Goal: Individualization and Mutuality Outcome: Ongoing (Interventions Implemented as Appropriate) 07/12/15 0659 Mutuality/Individual Preferences What anxieties, fears or concerns do you have about your health or care? previous reaction to pain medication was hallucinations What questions do you have about your health or care? no What information would help us give you more personalized care? none Goal: Fall Prevention-Safe Patient Handling Outcome: Ongoing (Interventions Implemented as Appropriate) 07/12/151999 Aleman Fall Risk History of Falling 25 Secondary Diagnosis 15 Ambulatory Aids 0 Intravenous Therapy/Heparin/Saline Lock 20 Gait/Transferring 0 Mental Status 0 Score 60 OTHER Aleman Fall Risk High Safety Interventions Safety Precautions/Fall Reduction environmental modification;fall reduction program maintained;lighting adjusted for task/safety;low bed;nonskid shoes/slippers when out of bed Musculoskeletal Interventions Activity/Level of Assistance with stand by assist Positioning independent Goal: Infection Control Outcome: Ongoing (Interventions Implemented as Appropriate) 07/12/151999 Safety Interventions Infection Prevention environmental surveillance;hydration promoted;nutrition promoted;promote handwashing;rest/sleep promoted Coping/Psychosocial Response Interventions Counseling calming techniques promoted;emotional support provided;verbalization of feelings encouraged;understanding of situation facilitated;reassurance provided Goal: Discharge Needs Assessment Outcome: Ongoing (Interventions Implemented as Appropriate) 07/12/15 0707/12/15 2224 Self-Care Equipment Currently Used at Home cane, straight -- Living Environment Transportation Available -- car;family or friend will provide Problem: Pain, Acute (Adult, Obstetrics) Goal: Identify Signs and Symptoms and Related Risk Factors Signs and symptoms and related risk factors are identified upon initiation of Human Response Clinical Practice Guideline (CPG) Outcome: Ongoing (Interventions Implemented as Appropriate) Goal: Acceptable Pain Control/Comfort Level 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 demonstrate the desired outcomes. Outcome: Ongoing (Interventions Implemented as Appropriate) 07/12/15 0355 Pain, Acute (Adult, Obstetrics) Acceptable Pain Control/Comfort Level making progress toward outcome Problem: Urine Elimination, Impaired (Adult, Obstetrics) Goal: Effective Urinary Elimination 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 demonstrate the desired outcomes. Outcome: Outcome (s) achieved Date Met: 07/13/15 Goal: Effective Containment of Urine 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 demonstrate the desired outcomes. Outcome: Outcome (s) achieved Date Met: 07/13/15 Goal: Reduced Incontinence Episodes 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 demonstrate the desired outcomes. Outcome: Outcome (s) achieved Date Met: 07/13/15 Comments: OUTCOME EVALUATION NOTE: OUTCOME SUMMARY: Patient with high fluid intake and output, moving well in room, ambulating often to BR. Urine remains drk leni/red. Patient states that she thinks the ditropan may have been a helpful addition. PLAN MOVING FORWARD: Continue to monitor, assist as needed. Patient anticipates discharge to home today. INDIVIDUALIZED FALL PREVENTION: Assistance: Minimal assist with lines and tubes, otherwise steady and independent Supervision: intermittent Surveillance: monica Chavira CPG GOAL OUTCOME EVALUATION: * Plan of Care - Kath Deluna RN - 07/12/2015 6:30 PM EDT Problem: General Plan of Care Goal: Plan of Care Review Outcome: Ongoing (Interventions Implemented as Appropriate) 07/12/15 0800 Coping/Psychosocial Response Interventions Plan of Care Reviewed with patient OUTCOME EVALUATION NOTE: OUTCOME SUMMARY: Pt tried to rest today. Removed crowley, and pt voided adequately without discomfort; color = cranberry. Bothered by bladder spasms. Doctor aware. PLAN MOVING FORWARD: Discharge maybe tomorrow. Would like diet consult R/T kidney stone prevention. INDIVIDUALIZED FALL PREVENTION: Assistance: Pt knows to call for help when needed. Supervision: SBA Surveillance: monica Chavira CPG GOAL OUTCOME EVALUATION: Goal: Individualization and Mutuality 07/12/15 0659 Mutuality/Individual Preferences What anxieties, fears or concerns do you have about your health or care? previous reaction to pain medication was hallucinations What questions do you have about your health or care? no What information would help us give you more personalized care? none Goal: Fall Prevention-Safe Patient Handling 07/12/15 0800 Aleman Fall Risk History of Falling 25 Secondary Diagnosis 15 Ambulatory Aids 0 Intravenous Therapy/Heparin/Saline Lock 20 Gait/Transferring 0 Mental Status 0 Score 60 OTHER Aleman Fall Risk High Safety Interventions Safety Precautions/Fall Reduction bed alarm Musculoskeletal Interventions Activity/Level of Assistance other (see comments) (SBA) Positioning independent Goal: Infection Control 07/12/15 08 Safety Interventions Infection Prevention rest/sleep promoted Coping/Psychosocial Response Interventions Counseling personal strengths integrated Goal: Discharge Needs Assessment 07/12/15 07 Self-Care Equipment Currently Used at Home cane, straight CRC assigned to help with discharge planning. * Initial Assessments - Solitario Meyers RN - 07/12/2015 11:07 AM EDT Office of Care Management (OCM) / Clinical Support Manager(CM)/ Initial Assessment Discussed patient with Provider Team and in multidisciplinary discharge-planning rounds. Reviewed record and interviewed patient. Introduced/reviewed CM role and services accepted. REASON for HOSPITALIZATION: Ms. Gaming is a 69 yo WF with a PMH of nephrolithiasis transferred to [facility] with a 3-4mm L ureteral stone, mild hydronephrosis, positive UA, and questionable urosepsisI. IVF, IV Zosyn q8, flomax, oxycodone, flagyl/lac-hydrin bid topical, nexium, celexa, bowel meds, Vit D3,I&O, PMH See H&P PREVIOUS FUNCTIONAL STATUS: Independent CURRENT FUNCTIONAL STATUS:Bedrest, OON chair/ambulate w staff SOCIAL / FAMILY SUPPORTS:, 69 year old female residing in [place], [place] and lists Deidra Renée and Willy Gaming as her contacts . ADVANCE DIRECTIVES: On file. Deidra is the primary and sole agent. HEALTH /PRESCRIPTION COVERAGE:Medicare A/B, [employer] with prescription coverage with co-pays. CURRENT HOME/COMMUNITY SERVICES/EQUIPMENT: DME:None Home Health Agency:None Other:None [employer] REFERRAL: To be determined. PRIMARY CARE PHYSICIAN: MARILUZ WATTS MD (General) [address] [facility] / [place] [id number] POTENTIAL DISCHARGE NEEDS: ?[facility] PATIENT/FAMILY EDUCATION NEEDS: Fluid intake, activity, medications, pain/bowel management ANTICIPATED BARRIERS TO DISCHARGE:? Lives alone TRANSPORTATION @ D/C: Family or friends PLAN: CM will continue to monitor progress, follow for continuity of care and assist with dischargeplanning while hospitalized Referrals to be made based on clinical needs and patient preference. RNto review instructions, medications, activity and f/u appointment prior to discharge.SOLITARIO MEYERS RN 07/12/2015 . * Plan of Care - Julieta Montgomery RN - 07/12/2015 4:04 AM EDT Problem: General Plan of Care Goal: Plan of Care Review Outcome: Ongoing (Interventions Implemented as Appropriate) 07/11/152141 Coping/Psychosocial Response Interventions Plan of Care Reviewed with patient OUTCOME EVALUATION NOTE: OUTCOME SUMMARY: Pt admitted to unit from PACU at approx 2130. Drowsy and sleeping between care. Per pt request, removed O2, but unable to sustain O2 sat above 90% on room air. Placed 2L back on. C/O 6/10 headache, relieved with 5 mg oxycodone and sched tylenol. No c/o nausea. Tolerating sips of water after swallowing pills. Scopolamine patch in place behind right ear. LR infused as ordered @ 50 mL/hr. Asked covering MD if this is adequate for dx. They will address with team in the morning. Various bruises on body - one on med right back. Pt states she has a clotting disorder and bruisesall the time. High risk for falls - pt states she falls a lot at home due to having balance issues. VSS PLAN MOVING FORWARD: Monitor urine output. Manage pain. Provide antibx therapy as ordered. INDIVIDUALIZED FALL PREVENTION: Assistance: Stand by assist for ambulation Supervision: A/O, uses call christensen appropriately, Post-op bed alarm activated Surveillance: Masimo, Purposeful rounding CPG GOAL OUTCOME EVALUATION: Goal: Fall Prevention-Safe Patient Handling Outcome: Ongoing (Interventions Implemented as Appropriate) 07/11/152141 Aleman Fall Risk History of Falling 25 Secondary Diagnosis 15 Ambulatory Aids 0 Intravenous Therapy/Heparin/Saline Lock 20 Gait/Transferring 0 Mental Status 0 Score 60 OTHER Aleman Fall Risk High Safety Interventions Safety Precautions/Fall Reduction bed alarm;low bed;fall reduction program maintained Musculoskeletal Interventions Activity/Level of Assistance bed rest Positioning independent Goal: Infection Control Outcome: Ongoing (Interventions Implemented as Appropriate) 07/11/152141 Safety Interventions Infection Prevention rest/sleep promoted Coping/Psychosocial Response Interventions Counseling emotional support provided;verbalization of feelings encouraged Problem: Pain, Acute (Adult, Obstetrics) Goal: Acceptable Pain Control/Comfort Level 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 demonstrate the desired outcomes. Outcome: Ongoing (Interventions Implemented as Appropriate) 07/12/15354 Pain, Acute (Adult, Obstetrics) Acceptable Pain Control/Comfort Level making progress toward outcome Problem: Urine Elimination, Impaired (Adult, Obstetrics) Goal: Effective Urinary Elimination 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 demonstrate the desired outcomes. Outcome: Ongoing (Interventions Implemented as Appropriate) 07/12/15354 Urine Elimination, Impaired (Adult, Obstetrics) Effective Urinary Elimination making progress toward outcome Goal: Effective Containment of Urine 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 demonstrate the desired outcomes. Outcome: Ongoing (Interventions Implemented as Appropriate) 07/12/15354 Urine Elimination, Impaired (Adult, Obstetrics) Effective Containment of Urine making progress toward outcome * Op Note - Jennifer Suresh MD - 07/11/2015 6:34 PM EDT Operative Note Patient Name: Diamond Gaming : [id number] MR#: [id number] Case Date: 07/11/2015 Surgeon: Surgeon(s) and Role: * Stephen Chauhan III, MD - Primary * Jennifer Suresh MD - Resident-Surgeon Francesco Preoperative diagnosis: left ureteral stone Postoperative diagnosis: left ureteral stone Procedure(s): CYSTO, STENT PLACEMENT (left) Anesthesia: General Findings: 1. Bilateral orthotopic ureteral orifices 2. Squamous metaplasia at trigone 3. No definitive filling defect seen in retrograde 4. Left ureteral stent placed Complications: none Fluids: see anesthesia record Estimated Blood Loss: 0 cc Drains: 6F variable length stent, left 16 F crowley catheter Disposition: awakened from anesthesia, extubated and taken to the recovery room in a stable condition, having suffered no apparent untoward event. Condition: doing well without problems (Please see the Surgical Encounter Summary for any Implant and Specimen details pertinent to this patient.) Infection Bundle used? N/A HPI/Surgical Indications: Diamond Gaming is a 69 y.o. female with a 4 mm mid ureteral stone with mild hydronephrosis, in the context of a likely urinary tract infection. Given her recent fevers and elevated lactate, as well as hypotension at the OSH, urgent stent left ureteral stent placement with broad spectrum antibioticsis warranted. Description of Procedure: The patient was identified and consented in preop holding was taken to the operating room and placed on the operating room table in supine position. Preoperative antibiotics (Zosyn) were given and general anesthesia was administered. A safety timeout was held. The patient was moved to dorsal lithoto my and prepped and draped in usual sterile fashion. Focused cystourethroscopy was performed with the 22F 30-degree lens. The urethra and bladder were normal. Two ureteral orifices were identified, orthotopics and were without inflammation. Ureteral jets were noted bilaterally. No focal mucosal abnor malities were noted within the bladder, except some squamous metaplasia at the trigone area. The left ureteral orifice was cannulated with a 5fr pollock catheter with the help of a glidewire. Retrograde pyelogram performed using 50% radiopaque solution. No definitive filling defects were seen. The bladder was emptied and the wire was secured as a safety wire. We then placed a 6 Fr variable lengthureteral stent over the glidewire and removed the wire with a good coil noted on fluoroscopy in therenal pelvis and cystoscopically in the bladder. The bladder was emptied. The patient was washed, dried, awakened, and returned to the recovery room in good condition. Jennifer Suresh MD Urology PGY-2 Pager: [phone] Associated attestation - Stephen Chauhan III, MD - 07/14/2015 1:29 PM EDT Attestation: Case Date: 07/11/2015 I was present and I participated during the entire procedure (does not need to include opening and closing). Stephen Chauhan III, MD 07/14/2015 * Brief Op Note - Jennifer Suresh MD - 07/11/2015 6:31 PM EDT Brief Operative Note Patient Name: Diamond Gaming : [id number] MR#: [id number] Case Date: 07/11/2015 Surgeon: Surgeon(s) and Role: * Stephen Chauhan III, MD - Primary * Jennifer Suresh MD - Resident-Surgeon Francesco Preoperative diagnosis: left ureteral stone Postoperative diagnosis: left ureteral stone Procedure(s): CYSTO, STENT PLACEMENT (left) Anesthesia: General Findings: 1. Bilateral orthotopic ureteral orifices 2. Squamous metaplasia at trigone 3. No definitive filling defect seen in retrograde 4. Left ureteral stent placed Complications: none Fluids: see anesthesia record Estimated Blood Loss: 0 cc Drains: 6F variable length stent, left 16 F crowley catheter Disposition: awakened from anesthesia, extubated and taken to the recovery room in a stable condition, having suffered no apparent untoward event. Condition: doing well without problems (Please see the Surgical Encounter Summary for any Implant and Specimen details pertinent to this patient.) Infection Bundle used? N/A Associated attestation - Stephen Chauhan III, MD - 07/12/2015 7:11 AM EDT I was the attending physician supervising the resident in the above care and I was present with theresident for the entire procedure. * ED Triage - Marily Lomeli RN - 07/11/2015 1:59 PM EDT Arrived via EMS from [facility] due to Lt obstructed renal calculi, chills and hypotension. Pt is speaking in complete sentences, alert x4. Skin is warm, diaphoretic, and pink. Pt denies any SOB. Pt statedthat she felt she had a bladder infection for 2 weeks and woke up last evening with shaking chills pain and loose stools documented in this encounter Plan of Treatment Upcoming Encounters Date Type Department Care Team (Late st Contact Info) Description 11/16/2024 1:00 PM EST Office Visit [place] [phone] Paula Harris PA [facility] [place] [address] 01/26/2025 9:50 AM EDT Appointment Mammography/DXA at [place] [phone] Joan Deutsch [facility] [place] [address] 01/26/2025 10:50 AM EDT Office Visit [place] [phone] Joan Deutsch [facility] [place] [address] Pending Results Name Type Priority Associated Diagnoses Date /Time FILM LIBRARY-FLUORO OR [id number] ONL Imaging Routine 07/11/2015 7:1 8 PM EDT Scheduled Orders Name Type Priority Associated Diagnoses Orde r Schedule FILM LIBRARY-FLUORO OR [id number] ONL Imaging Routine Once PRN (f or Radiant use) for 1 Occurrences starting 07/11/2015 until 07/11/2015 documented as of this encounter Procedures Procedure Name Priority Date/Time Associated Diagnosis Comments IMPLANTABLE DEVICES SCAN 015 12:00 AM EDT PHARMACY STOCK CLERK SCAN 07/14/2015 12:00 AM EDT HEMOGRAM Routine 07/13/2015 2:15 AM EDT DIFFERENTIAL, AUTOMATED Routine 07/13/20 2:15 AM EDT CBC (WITH DIFF) Routine 07/13/2015 2:15 AM EDT BASIC METABOLIC PANEL Routine 07/13/2015 2:15 AM EDT HEMOGRAM Routine 07/12/2015 3:03 AM EDT DIFFERENTIAL, AUTOMATED Routine 07/12/20 15 3:03 AM EDT CBC (WITH DIFF) Routine 07/12/2015 3:03 AM EDT BASIC METABOLIC PANEL Routine 07/12/2015 3:03 AM EDT CYSTO,RETROGRADE,URETEROPY ELOGRAPHY Routine 07/11/2015 6:48 PM EDT CYSTO, RETROGRADE, URETEROPYELOGRAPHY (WRVU 2.37) 07/11/2015 5:48 PM EDT left ureteral stone CYSTO, STENT PLACEMENT (WRVU 2.82) 07/11/2015 5:48 PM EDT left ureteral stone CYSTO, STENT PLACEMENT Routine 5 4:24 PM EDT L-LACTATE2 WHOLE BLOOD Routine 5 3:33 PM EDT OSBORNE TUBE HOLD STAT 07/11/2015 3:00 PM EDT RED TUBE HOLD STAT 07/11/2015 3:00 PM EDT HEMOGRAM STAT 07/11/2015 3:00 PM EDT DIFFERENTIAL, AUTOMATED STAT 07/11/20 15 3:00 PM EDT GOLD TUBE HOLD STAT 07/11/2015 3:00 PM EDT BLUE TUBE HOLD STAT 07/11/2015 3:00 PM EDT CREATININE STAT 07/11/2015 3:00 PM EDT CBC (WITH DIFF) STAT 07/11/2015 3:00 PM EDT BUN STAT 07/11/2015 3:00 PM EDT ELECTROLYTES PANEL STAT 07/11/2015 3: 00 PM EDT URINALYSIS WITH REFLEX CULTURE STAT 07/11/2015 2:00 PM EDT URINE CULTURE STAT 07/11/2015 2:00 PM EDT FILM LIBRARY STORAGE ONLY CT ABDOMEN AND PELVIS STAT 07/11/2015 12:00 AM EDT Pain documented in this encounter Results * SCAN DOC: IMPLANTABLE DEVICES (07/14/2015 12:00 AM EDT) Scanning Provider MEDIA MGR SCAN EXT O RDR/RSLT * SCAN DOC: PHARMACY STOCK CLERK (07/14/2015 12:00 AM EDT) Anatomical Region Laterality Modality Other Scanning Provider MEDIA MGR SCAN EXT O RDR/RSLT * (ABNORMAL) Differential, Automated (07/13/2015 2:15 AM EDT) Neutrophil % 80.7 % CERNER MILLENNIUM Neutrophil Absolute 10.14(H) 1.50 - 6.30 x10(3)/mc L CERNER MILLENNIUM Lymph % 10.2 % CERNER MILLENNIUM Lymphocytes Abs 1.3 1.0 - 3.6 x10(3)/mc L CERNER MILLENNIUM Monocyte % 8.0 % CERNER MILLENNIUM Monocyte Abs 1.0 0.2 - 1.0 x10(3)/mc L CERNER MILLENNIUM Eos % 0.7 % CERNER MILLENNIUM Eosinophils Abs 0.1 0.0 - 0.5 x10(3)/mc L CERNER MILLENNIUM Basophil % 0.2 % CERNER MILLENNIUM Baso Absolute 0.0 0.0 - 0.2 x10(3)/mc L CERNER MILLENNIUM Immature Gran % 0.20 % CERN ER MILLENNIUM Comment: Immature granulocytes(IG's)percentage and absolute count will include metamyelocytes, myelocytes, and promyelocytes. Blood smears from CBCs yielding IG's will be scanned manually for concordance. If this scan disagrees with the automated IG or if promyelocytes are noted, a manual differential will be performed. Immature Gran Absolute 0.03 0.00 - 0.05 x10(3)/mc L CERNER MILLENNIUM Blood specimen (specimen) 07/13/2015 2:15 AM EDT 07/13/2015 2:43 AM EDT Narrative Resulting Agency Comment Spec In Lab Stephen Chauhan III, MD HEMATOLOGY ORDERA BLEDenisa Performing Organization Address [facility] de Phone Number CERRIGO MAYERIUM * (ABNORMAL) Hemogram (07/13/2015 2:15 AM EDT) White Blood Cell 12.6(H) 4.0 - 10.0 x10(3)/mc L CERNER MILLENNIUM Red Blood Cell 4.14 3.93 - 5.22 x10(6)/mc L CERNER MILLENNIUM Hemoglobin 11.7 11.2 - 15.7 gm/dL CERNER MILLENNIUM Hematocrit 36.3 34.0 - 45.0 % CERNER MILLENNIUM Mean Cell Volume 87.7 79.0 - 94.0 fL CERNER MILLENNIUM Mean Cell Hemoglobin 28.3 26.6 - 32.2 pg CERNER MILLENNIUM Mean Cell Hemoglobin Concentration 32.2 32.0 - 36.5 gm/dL CERNER MILLENNIUM Platelet 172 145 - 370 x10(3)/mc L CERNER MILLENNIUM RDW Standard Deviation 46.3(H) 35.0 - 46.0 fL CERNER MILLENNIUM RDW coefficient of variation 14.5(H) 10.9 - 14.4 % CERNER MILLENNIUM Mean Platelet Volume 11.5 9.0 - 12.0 fL CERNER MILLENNIUM Blood specimen (specimen) 07/13/2015 2:15 AM EDT 07/13/2015 2:43 AM EDT Narrative Resulting Agency Comment Spec In Lab Stephen Chauhan III, MD HEMATOLOGY ORDERA BLES Performing Organization Address [facility] Co de Phone Number VALERIE MAYERIUM * Basic Metabolic Panel (non-fasting) (07/13/2015 2:15 AM EDT) Glucose 100 65 - 199 mg/dL CERNER MILLENNIUM Comment:Diabetes: >=200 mg/d L plus symptoms Blood Urea Nitrogen 15 8 - 18 mg/dL CERNER MILLENNIUM Creatinine 0.83 0.70 - 1.20 mg/dL CERNER MILLENNIUM Comment: Please note that the pediatric reference intervals supplied above were not validated at [facility] [place] [facility]. Results from pediatric patients should be interpreted in conjunction to the patient's age, height and muscle mass. Sodium 142 135 - 145 mmol/L CERNER MILLENNIUM Potassium 3.9 3.5 - 5.0 mmol/L CERNER MILLENNIUM Comment: Please note: ??Patients with WBC >100,000 may have falsely elevated Potassium levels. ??For accurate Potassium quantification in these patients send serum separator tube (gold top) for subsequent determinations. ??Contact the Clinical Chemistry Laboratory if there are any questions. Chloride 105 98 - 107 mmol/L CERNER MILLENNIUM Carbon Dioxide 24 22 - 31 mmol/L CERNER MILLENNIUM Anion Gap 13 5 - 15 mmol/L CERNER MILLENNIUM Calcium 8.9 8.5 - 10.5 mg/dL CERNER MILLENNIUM Est Glomerular Filtration Rate >60 >=60 CERNER MILLENNIUM Comment: This estimated GFR (eGFR) value was calculated using the MDRD equation which has been validated on patients between the ages of 18 and 70. The MDRD should not be used to assess kidney function in patients < 18 years of age or in patients with extremes of body mass, or in patients with acute kidney failure. This value should be multiplied by 1.2 for patients. For further information please copy and paste the following links into your internet browser. [email or web address] Blood specimen (specimen) 07/13/2015 2:15 AM EDT 07/13/2015 2:43 AM EDT Narrative Resulting Agency Comment Spec In Lab Stephen Chauhan III, MD [facility]STRY ORDERAB LES [facility] [email or web address] * (ABNORMAL) Differential, Automated (07/12/2015 3:03 AM EDT) Neutrophil % 93.4 % CERNER MILLENNIUM Neutrophil Absolute 12.34(H) 1.50 - 6.30 x10(3)/mc L CERNER MILLENNIUM Lymph % 4.0 % CERNER MILLENNIUM Lymphocytes Abs 0.5(L) 1.0 - 3.6 x10(3)/mc L CERNER MILLENNIUM Monocyte % 2.3 % CERNER MILLENNIUM Monocyte Abs 0.3 0.2 - 1.0 x10(3)/mc L CERNER MILLENNIUM Eos % 0.0 % CERNER MILLENNIUM Eosinophils Abs 0.0 0.0 - 0.5 x10(3)/mc L CERNER MILLENNIUM Basophil % 0.1 % CERNER MILLENNIUM Baso Absolute 0.0 0.0 - 0.2 x10(3)/mc L CERNER MILLENNIUM Immature Gran % 0.20 % CERN ER MILLENNIUM Comment: Immature granulocytes(IG's)percentage and absolute count will include metamyelocytes, myelocytes, and promyelocytes. Blood smears from CBCs yielding IG's will be scanned manually for concordance. If this scan disagrees with the automated IG or if promyelocytes are noted, a manual differential will be performed. Immature Gran Absolute 0.02 0.00 - 0.05 x10(3)/mc L CERNER MILLENNIUM Blood specimen (specimen) 07/12/2015 3:03 AM EDT 07/12/2015 3:17 AM EDT Narrative Resulting Agency Comment Spec In Lab Stephen Chauhan III, MD HEMATOLOGY ORDERA BLES CERNER MANISHAENNIUM * (ABNORMAL) Hemogram (07/12/2015 3:03 AM EDT) White Blood Cell 13.2(H) 4.0 - 10.0 x10(3)/mc L CERNER MILLENNIUM Red Blood Cell 4.03 3.93 - 5.22 x10(6)/mc L CERNER MILLENNIUM Hemoglobin 11.6 11.2 - 15.7 gm/dL CERNER MILLENNIUM Hematocrit 35.2 34.0 - 45.0 % CERNER MILLENNIUM Mean Cell Volume 87.3 79.0 - 94.0 fL CERNER MILLENNIUM Mean Cell Hemoglobin 28.8 26.6 - 32.2 pg CERNER MILLENNIUM Mean Cell Hemoglobin Concentration 33.0 32.0 - 36.5 gm/dL CERNER MILLENNIUM Platelet 152 145 - 370 x10(3)/mc L CERNER MILLENNIUM RDW Standard Deviation 44.9 35.0 - 46.0 fL CERNER MILLENNIUM RDW coefficient of variation 14.2 10.9 - 14.4 % CERNER MILLENNIUM Mean Platelet Volume 11.5 9.0 - 12.0 fL CERNER MILLENNIUM Blood specimen (specimen) 07/12/2015 3:03 AM EDT 07/12/2015 3:17 AM EDT Narrative Resulting Agency Comment Spec In Lab Stephen Chauhan III, MD HEMATOLOGY ORDERA [facility] CERNER MILLENNIUM * (ABNORMAL) Basic Metabolic Panel (non-fasting) (07/12/2015 3:03 AM EDT) [facility] Glucose 120 65 - 199 mg/dL CERNER MILLENNIUM Comment:Diabetes: >=200 mg/d L plus symptoms Blood Urea Nitrogen 11 8 - 18 mg/dL CERNER MILLENNIUM Creatinine 0.55(L) 0.70 - 1.20 mg/dL CERNER MILLENNIUM Comment: Please note that the pediatric reference intervals supplied above were not validated at [facility] [place]. Results from pediatric patients should be interpreted in conjunction to the patient's age, height and muscle mass. Sodium 141 135 - 145 mmol/L CERNER MILLENNIUM Potassium 3.9 3.5 - 5.0 mmol/L CERNER MILLENNIUM Comment: Please note: ??Patients with WBC >100,000 may have falsely elevated Potassium levels. ??For accurate Potassium quantification in these patients send serum separator tube (gold top) for subsequent determinations. ??Contact the Clinical Chemistry Laboratory if there are any questions. Chloride 106 98 - 107 mmol/L CERNER MILLENNIUM Carbon Dioxide 22 22 - 31 mmol/L CERNER MILLENNIUM Anion Gap 13 5 - 15 mmol/L CERNER MILLENNIUM Calcium 8.5 8.5 - 10.5 mg/dL CERRIGO DYERENNIUM Est Glomerular Filtration Rate >60 >=60 CERNER MILLENNIUM Comment: This estimated GFR (eGFR) value was calculated using the MDRD equation which has been validated on patients between the ages of 18 and 70. The MDRD should not be used to assess kidney function in patients < 18 years of age or in patients with extremes of body mass, or in patients with acute kidney failure. This value should be multiplied by 1.2 for patients. For further information please copy and paste the following links into your internet browser. [email or web address] Blood specimen (specimen) 07/12/2015 3:03 AM EDT 07/12/2015 3:17 AM EDT Narrative Resulting Agency Comment Spec In Lab Stephen Chauhan III, MD CHEMISTRY ORDERAB LES Performing Organization Address [facility] de Phone Number VALERIE TOPETE * L-Lactate2 Whole Blood (07/11/2015 3:33 PM EDT) Lactate WB 1.6 mmol/L VALERIE TOPETE Blood specimen (specimen) 07/11/2015 3:33 PM EDT 07/11/2015 3:33 PM EDT Emergency Dept CHEMISTRY ORDERABLE S Performing Organization Address [facility] de Phone Number VALERIE MAYERIUM * Red Hold (07/11/2015 3:00 PM EDT) Red Hold Sample in lab. VALERIE TOPETE Blood specimen (specimen) Venous Draw / Unknown 07/11/2015 3:00 PM EDT 07/11/2015 3:29 PM EDT Clarence Monet MD CHEMISTRY ORDERABLES Performing Organization Address [facility] de Phone Number VALERIE MAYERIUM * Osborne Hold (07/11/2015 3:00 PM EDT) Osborne Hold Sample in lab. VALERIE MAYERIUM Blood specimen (specimen) Venous Draw / Unknown 07/11/2015 3:00 PM EDT 07/11/2015 3:29 PM EDT Clarence Monet MD CHEMISTRY ORDERABLES VALERIE MAYERIUM * Gold Tube HOLD (07/11/2015 3:00 PM EDT) Gold Hold Sample in lab. VALERIE MAYERIUM Blood specimen (specimen) Venous Draw / Unknown 07/11/2015 3:00 PM EDT 07/11/2015 3:30 PM EDT Clarence Monet MD CHEMISTRY ORDERABLES Performing Organization Address [facility] Co de Phone Number VALERIE MAYERIUM * Blue Tube HOLD (07/11/2015 3:00 PM EDT) Blue Hold Sample in lab. VALERIE MAYERIUM Blood specimen (specimen) Venous Draw / Unknown 07/11/2015 3:00 PM EDT 07/11/2015 3:28 PM EDT Clarence Monet MD HEMATOLOGY ORDERABLE S Performing Organization Address [facility] de Phone Number VALERIE MAYERIUM * (ABNORMAL) Differential, Automated (07/11/2015 3:00 PM EDT) Neutrophil % 94.8 % CERNER MILLENNIUM Neutrophil Absolute 13.54(H) 1.50 - 6.30 x10(3)/mc L CERNER MILLENNIUM Lymph % 2.5 % CERNER MILLENNIUM Lymphocytes Abs 0.4(L) 1.0 - 3.6 x10(3)/mc L CERNER MILLENNIUM Monocyte % 1.7 % CERNER MILLENNIUM Monocyte Abs 0.2 0.2 - 1.0 x10(3)/mc L CERNER MILLENNIUM Eos % 0.3 % CERNER MILLENNIUM Eosinophils Abs 0.0 0.0 - 0.5 x10(3)/mc L CERNER MILLENNIUM Basophil % 0.1 % CERNER MILLENNIUM Baso Absolute 0.0 0.0 - 0.2 x10(3)/mc L CERNER MILLENNIUM Immature Gran % 0.60 % CERN ER MILLENNIUM Comment: Immature granulocytes(IG's)percentage and absolute count will include metamyelocytes, myelocytes, and promyelocytes. Blood smears from CBCs yielding IG's will be scanned manually for concordance. If this scan disagrees with the automated IG or if promyelocytes are noted, a manual differential will be performed. Immature Gran Absolute 0.09(H) 0.00 - 0.05 x10(3)/mc L CERNER MILLENNIUM Blood specimen (specimen) 07/11/2015 3:00 PM EDT 07/11/2015 3:27 PM EDT Narrative Resulting Agency Comment Spec In Lab Clarence Monet MD HEMATOLOGY ORDERABLE S CERNER MILLENNIUM * (ABNORMAL) Hemogram (07/11/2015 3:00 PM EDT) White Blood Cell 14.3(H) 4.0 - 10.0 x10(3)/mc L CERNER MILLENNIUM Red Blood Cell 4.24 3.93 - 5.22 x10(6)/mc L CERNER MILLENNIUM Hemoglobin 12.1 11.2 - 15.7 gm/dL CERNER MILLENNIUM Hematocrit 37.0 34.0 - 45.0 % CERNER MILLENNIUM Mean Cell Volume 87.3 79.0 - 94.0 fL CERNER MILLENNIUM Mean Cell Hemoglobin 28.5 26.6 - 32.2 pg CERNER MILLENNIUM Mean Cell Hemoglobin Concentration 32.7 32.0 - 36.5 gm/dL CERNER MILLENNIUM Platelet 159 145 - 370 x10(3)/mc L CERNER MILLENNIUM RDW Standard Deviation 45.0 35.0 - 46.0 fL CERNER MILLENNIUM RDW coefficient of variation 14.2 10.9 - 14.4 % CERNER MILLENNIUM Mean Platelet Volume 11.0 9.0 - 12.0 fL CERNER MILLENNIUM Blood specimen (specimen) 07/11/2015 3:00 PM EDT 07/11/2015 3:27 PM EDT Narrative Resulting Agency Comment Spec In Lab Clarence Monet MD HEMATOLOGY ORDERABLE S Performing Organization Address [facility] de Phone Number VALERIE TOPETE * (ABNORMAL) Creatinine (07/11/2015 3:00 PM EDT) Creatinine 0.57(L) 0.70 - 1.20 mg/dL [facility] [place] [facility] Comment: Please note that the pediatric reference intervals supplied above were not validated at [facility]. Results from pediatric patients should be interpreted in conjunction to the patient's age, height and muscle mass. Est Glomerular Filtration Rate >60 >=60 [facility] Comment: This estimated GFR (eGFR) value was calculated using the MDRD equation which has been validated on patients between the ages of 18 and 70. The MDRD should not be used to assess kidney function in patients < 18 years of age or in patients with extremes of body mass, or in patients with acute kidney failure. This value should be multiplied by 1.2 for patients. For further information please copy and paste the following links into your internet browser. [email or web address] Blood specimen (specimen) 07/11/2015 3:00 PM EDT 07/11/2015 3:27 PM EDT Narrative Resulting Agency Comment Spec In Lab Clarence Monet MD CHEMISTRY ORDERABLES Performing Organization Address [facility] de Phone Number VALERIE TOPETE * BUN (07/11/2015 3:00 PM EDT) Blood Urea Nitrogen 15 8 - 18 mg/dL [facility] [place] [facility] Blood specimen (specimen) 07/11/2015 3:00 PM EDT 07/11/2015 3:27 PM EDT Narrative Resulting Agency Comment Spec In Lab Clarence Monet MD CHEMISTRY ORDERABLES Performing Organization Address [facility] Co de Phone Number CERNER MILLENNIUM * (ABNORMAL) Electrolytes panel (07/11/2015 3:00 PM EDT) Sodium 140 135 - 145 mmol/L CERNER MILLENNIUM Potassium 3.8 3.5 - 5.0 mmol/L CERNER MILLENNIUM Comment: Please note: ??Patients with WBC >100,000 may have falsely elevated Potassium levels. ??For accurate Potassium quantification in these patients send serum separator tube (gold top) for subsequent determinations. ??Contact the Clinical Chemistry Laboratory if there are any questions. Chloride 105 98 - 107 mmol/L CERNER MILLENNIUM Carbon Dioxide 21(L) 22 - 31 mmol/L CERNER MILLENNIUM Anion Gap 14 5 - 15 mmol/L CERNER MILLENNIUM Blood specimen (specimen) 07/11/2015 3:00 PM EDT 07/11/2015 3:27 PM EDT Narrative Resulting Agency Comment Spec In Lab Clarence Monet MD CHEMISTRY ORDERABLES Performing Organization Address [facility] de Phone Number CERRIGO DYERENNIUM * Urine culture Clean Catch Urine (07/11/2015 2:00 PM EDT) Urine Culture No growth (Less than 1,000 cfu/ml). CERNER MILLENNIUM Urine specimen obtained by clean catch procedure (specimen) 07/11/2015 2:00 PM EDT 07/11/2015 4:08 PM EDT Narrative Resulting Agency Comment Spec In Lab Clarence Monet MD MICROBIOLOGY - GENER AL ORDERABLES Performing Organization Address [facility] Co de Phone Number VALERIE DYERENNIUM * (ABNORMAL) Urinalysis with reflex Culture (07/11/2015 2:00 PM EDT) Glucose, Urine Dipstick Negative Negative mg/dL CERNER MILLENNIUM Protein, Urine Dipstick Negative Negative mg/dL CERNER MILLENNIUM Bilirubin, Urine Dipstick Negative Negative mg/dL CERNER MILLENNIUM Comment: Clinical correlation required for positive Urine Bilirubin results as false positive may occur with some drugs and drug related products. If a false positive is suspected a serum total bilirubin should be considered if clinically indicated. Urobilinogen, Urine Dipstick Normal Normal mg/dL CERNER MILLENNIUM pH, Urn (dipstick) 5.0 5.0 - 8.0 CERNER MILLENNIUM Blood, Urine Dipstick Negative Negative mg/dL CERNER MILLENNIUM Ketone, Urine Dipstick Negative Negative mg/dL CERNER MILLENNIUM Nitrite, Urine Dipstick Negative Negative CERNER MILLENNIUM Leukocytes, Urine Dipstick Negative Negative mcL CERNER MILLENNIUM Appearance, Urine Dipstick Clear Clear CERNER MILLENNIUM Specific [place] Urine Automated 1.016 1.002 - 1.030 CERNER MILLENNIUM Color, Urine Dipstick Yellow Yellow CERNER MILLENNIUM RBC, Urine 3 0 - 4 /HPF CERNER MILLENNIUM WBC, Urine 10(H) 0 - 5 /HPF CERNER MILLENNIUM Squamous Epithelial Cells, Urine 1 <=4 /HPF CERNER MILLENNIUM Reflex to Culture Dup Culture CERNER MILLENNIUM Urine specimen obtained by clean catch procedure (specimen) 07/11/2015 2:00 PM EDT 07/11/2015 3:33 PM EDT Narrative Resulting Agency Comment Spec In Lab Clarence Monet MD URINE ORDERABLES CERRIGO MAYERIUM * Film Library- Storage Only CT Abdomen & Pelvis (07/11/2015 12:00 AM EDT) Narrative User, Generic Transmittal - 07/11/2015 3:39 PM EDT See PACS for result report. Stephen Chauhan III, MD IM FILM LIBRARY ORDERABLES documented in this encounter Visit Diagnoses Diagnosis Pain Generalized pain Kidney stone Calculus of kidney documented in this encounter Administered Medications Inactive Administered Medications - up to 3 most recent administrations Medication Order MAR Action Action Date Dose Rate Site acetaminophen (TYLENOL) tablet 650 mg 650 mg, Oral, EVERY 6 HOURS SCHEDULED, First dose on 07/11/15 at 1945, Until Discontinued, Administer for temperature greater than or equal to 38.2 degrees celsius. Maximum daily dose of acetaminophen from all sources not to exceed 4,000 mg., Routine Given 07/13/2015 2:19 AM EDT 650 mg Given 07/12/2015 8:30 PM EDT 650 mg Given 07/12/2015 2:36 PM EDT 650 mg ammonium lactate (LAC-HYDRIN) 12 % lotion Topical (Top), 2 TIMES DAILY, First dose on Sat07/11/15 at 2300, Until Discontinued Given 07/13/2015 9:36 AM EDT Given 07/12/2015 9:00 PM EDT Given 07/12/2015 9:40 AM EDT cholecalciferol (Vitamin D3) tablet 1,000 Units 1,000 Units, Oral, DAILY, First dose on Sat07/12/15 at 0900, Until Discontinued, Routine Given 07/13/2015 9:35 AM EDT 1,000 Units Given 07/12/2015 9:37 AM EDT 1,000 Units citalopram (CeleXA) tablet 20 mg 20 mg, Oral, DAILY, First dose on Sat07/12/15 at 0900, Until Discontinued, Routine Given 07/13/2015 9:35 AM EDT 20 mg Given 07/12/2015 9:39 AM EDT 20 mg docusate sodium (COLACE) capsule 100 mg 100 mg, Oral, 2 TIMES DAILY, First dose on Sat07/11/15 at 2200, Until Discontinued, Routine Given 07/13/2015 9:34 AM EDT 100 mg Given 07/12/2015 8:31 PM EDT 100 mg Given 07/12/2015 9:39 AM EDT 100 mg esomeprazole (NexIUM) capsule 40 mg 40 mg, Oral, DAILY, First dose on Sat07/12/15 at 0900, Until Discontinued, Routine Given 07/13/2015 9:35 AM EDT 40 mg Given 07/12/2015 9:39 AM EDT 40 mg ibuprofen (ADVIL;MOTRIN) tablet 600 mg 600 mg, Oral, EVERY 6 HOURS PRN, Starting on Sat07/12/15 at 1534, Until Sat07/13/15 at 1612, Pain, Administer orally with milk or food to minimize GI irritation. Maximum dose of 3200 mg from all sources in 24 hours, Routine Given 07/13/2015 11:46 AM EDT 600 mg Given 07/12/2015 6:58 PM EDT 600 mg metroNIDAZOLE (METROGEL) 1 % gel Topical (Top), DAILY, First dose on Sat07/12/15 at 0900, Until Discontinued Given 07/13/2015 9:36 AM EDT Given 07/12/2015 9:40 AM EDT oxybutynin (DITROPAN) tablet 5 mg 5 mg, Oral, 2 TIMES DAILY, First dose on Sat07/12/15 at 2100, Until Discontinued, Routine Given 07/13/2015 9:35 AM EDT 5 mg Given 07/12/2015 8:31 PM EDT 5 mg oxyCODONE (ROXICODONE) immediate release tablet 5 mg 5 mg, Oral, EVERY 4 HOURS PRN, Starting on Sat07/11/15 at 1923, Until Sat07/13/15 at 1612, Pain, mild to moderate pain (1-6), May give an additional 5 mg in 30 minutes once if pain not relieved., Routine Given 07/12/2015 12:01 PM EDT 5 mg Given 07/12/2015 6:29 AM EDT 5 mg Given 07/12/2015 1:05 AM EDT 5 mg piperacillin-tazobactam (ZOSYN) 3.375 g in dextrose 5% 50 mL 3.375 g, Intravenous, EVERY 8 HOURS, First dose on Sat07/12/15 at 0300, Until Discontinued, Administer over 4 Hours, Indication for (Active or Suspected): Urinary Tract/Pyelonephritis Given 07/13/2015 11:38 AM EDT 3.375 g 12.5 mL/h r Given 07/13/2015 2:19 AM EDT 3.375 g 12.5 mL/hr Given 07/12/2015 6:55 PM EDT 3.375 g 12.5 mL/hr predniSONE (DELTASONE) tablet 5 mg 5 mg, Oral, DAILY, First dose on Sat07/12/15 at 1300, Until Discontinued, Routine Given 07/13/2015 9:34 AM EDT 5 mg Given 07/12/2015 2:37 PM EDT 5 mg sodium chloride 0.9 % flush 5 mL 5 mL, Intravenous, 2 TIMES DAILY, First dose on Sat07/11/15 at 2200, Until Discontinued, Routine Given 07/13/2015 9:39 AM EDT 5 mLs Given 07/12/2015 8:32 PM EDT 5 mLs tamsulosin (FLOMAX) ER capsule 0.4 mg 0.4 mg, Oral, DAILY, First dose on Sat07/12/15 at 0900, Until Discontinued, Routine Given 07/13/2015 9:3 5 AM EDT 0.4 mg Given 07/12/2015 9:37 AM EDT 0.4 mg documented in this encounter Active and Recently Administered Medications Times are shown in EDT. Scheduled Medication Order 07/11/2015 07/12/2015 07/13/2015 acetaminophen (TYLENOL) tablet 650 mg 650 mg, Oral, EVERY 6 HOURS SCHEDULED, First dose on Sat07/11/15 at 1945, Until Discontinued, Administer for temperature greater than or equal to 38.2 degrees celsius. Maximum daily dose of acetaminophen from all sources not to exceed 4,000 mg., Routine 2054 (Given - Provider: Eunice Asencio RN) 0303 (Given - Provider: Julieta Montgomery RN)0900 (Not Given - Provider: Kath Deluna RN - Reason: Contraindicated)1436 (Given - Provider: Kath Deluna RN)2030 (Given - Provider: Deidra London RN) 0219 (Given - Provider: Deidra London, [place])0900 (Not Given - Provider: Kath Deluna RN - Reason: Patient/family refused) ammonium lactate (LAC-HYDRIN) 12 % lotion (CANCELED) Topical (Top), 2 TIMES DAILY, First dose on Sat07/11/15 at 2300, Until Discontinued 2300 (Not Given - Provider: Julieta Montgomery RN - Reason: Patient/family refused) 0940 (Given - Provider: Kath Deluna RN)2100 (Given - Provider: Deidra London RN) 0936 (Given - Provider: Kath Deluna, [place]) cholecalciferol (Vitamin D3) tablet 1,000 Units (CANCELED) 1,000 Units, Oral, DAILY, First dose on Sat07/12/15 at 0900, Until Discontinued, Routine 0937 (Given - Provider: Kath Deluna RN) 0935 (Given - Provider: Kath Deluna, [place]) citalopram (CeleXA) tablet 20 mg (CANCELED) 20 mg, Oral, DAILY, First dose on Sat07/12/15 at 0900, Until Discontinued, Routine 938 (Given - Provider: Kath Deluna RN) 0935 (Given - Provider: Kath Deluna RN) docusate sodium (COLACE) capsule 100 mg 100 mg, Oral, 2 TIMES DAILY, First dose on Sat07/11/15 at 2200, Until Discontinued, Routine 2208 (Given - Provider: Julieta Montgomery RN) 0939 (Given - Provider: Kath Deluna RN)2030 (Given - Provider: Deidra [place], [place]) 0934 (Given - Provider: Kath Deluna RN) esomeprazole (NexIUM) capsule 40 mg (CANCELED) 40 mg, Oral, DAILY, First dose on Sat07/12/15 at 0900, Until Discontinued, Routine 938 (Given - Provider: Kath Deluna RN) 0935 (Given - Provider: Kath Deluna RN) metroNIDAZOLE (METROGEL) 1 % gel (CANCELED) Topical (Top), DAILY, First dose on Sat07/12/15 at 0900, Until Discontinued 40 (Given - Provider: Kath Deluna RN) 0936 (Given - Provider: Kath Deluna RN) oxybutynin (DITROPAN) tablet 5 mg 5 mg, Oral, 2 TIMES DAILY, First dose on Sat07/12/15 at 2100, Until Discontinued, Routine 2030 (Given - Provider: Deidra [place], [place]) 0935 (Given - Provider: Kath Deluna RN) piperacillin-tazobactam (ZOSYN) 3.375 g in dextrose 5% 50 mL (COMPLETED) 3.375 g, Intravenous, ONCE, 1 dose, On Sat07/11/15 at 1656, Administer over 4 Hours, call center assistant to OR, Indication for (Active or Suspected): Urinary Tract/Pyelonephritis 1803 (Given - Provider: Fredo Vasquez CRNA) piperacillin-tazobactam (ZOSYN) 3.375 g in dextrose 5% 50 mL (CANCELED) 3.375 g, Intravenous, EVERY 8 HOURS, First dose on Sat07/12/15 at 0300, Until Discontinued, Administer over 4 Hours, Indication for (Active or Suspected): Urinary Tract/Pyelonephritis 0304 (Given - Provider: Julieta Montgomery, RN)1146 (Given - Provider: Kath Deluna RN)1855 (Given - Provider: Kath Deluna RN) 0219 (Given - Provider: Deidra [place], [place])1138 (Given - Provider: Kath Deluna, [place]) predniSONE (DELTASONE) tablet 5 mg (CANCELED) 5 mg, Oral, DAILY, First dose on Sat07/12/15 at 1300, Until Discontinued, Routine 1437 (Given - Provider: Kath Deluna RN - Comment: pt had to wait for med from pharmacy) 0934 (Given - Provider: Kath Deluna RN) sodium chloride 0.9 % flush 5 mL (CANCELED) 5 mL, Intravenous, 2 TIMES DAILY, First dose on Sat07/11/15 at 2200, Until Discontinued, Routine 2200 (Not Given - Provider: Julieta Montgomery RN - Reason: See comment - Comment: IVF infusing through PIV) 0942 (Not Given - Provider: Kath Deluna RN - Reason: Contraindicated)2031 (Given - Provider: Deidra London, RN) 0939 (Given - Provider: Kath Deluna, [place]) tamsulosin (FLOMAX) ER capsule 0.4 mg 0.4 mg, Oral, DAILY, First dose on Sat07/12/15 at 0900, Until Discontinued, Routine 0937 (Given - Provider: Kath Deluna RN) 0935 (Given - Provider: Kath Deluna, [place]) Continuous Medication Order 07/11/2015 07/12/2015 07/13/2015 lactated ringers infusion (CANCELED) 50 mL/hr, Intravenous, CONTINUOUS, Starting on Sat07/11/15 at 1602, Until Sat07/12/15 at 0710 1747 (New Bag - Provider: Fredo Vasquez CRNA)174 (MAR Hold - Provider: Admin Adt - Reason: Transfer to a Procedural area)181 (Anesthesia Volume Adjustment - Provider: Fredo Vasquez CRNA)184 (Anesthesia Volume Adjustment - Provider: Fredo Vasquez CRNA)2114 (MAR Unhold - Provider: Admin Adt) PRN Medication Order 07/11/2015 07/12/2015 07/13/2015 ibuprofen (ADVIL;MOTRIN) tablet 600 mg (CANCELED) 600 mg, Oral, EVERY 6 HOURS PRN, Starting on Sat07/12/15 at 1534, Until Sat07/13/15 at 1612, Pain, Administer orally with milk or food to minimize GI irritation. Maximum dose of 3200 mg from all sources in 24 hours, Routine 1858 (Given - Provider: Kath Deluna, [place]) 1146 (Given - Provider: Kath Deluna RN) iohexol (OMNIPAQUE) 300 mg/mL solution (CANCELED) ONCE PRN, Starting on Sat07/11/15 at 1850, Until Sat07/11/15 at 2050, Intra-Operative (Intra-Procedure), Routine 1850 (Given - Provider: Stephen Chauhan III, MD - Comment: Omnipaque 50 mL (300 mg) mixed 1:1 with Normal Saline and on field for MD.) oxyCODONE (ROXICODONE) immediate release tablet 5 mg (CANCELED)(Linked Group 1) 5 mg, Oral, EVERY 4 HOURS PRN, Starting on Sat07/11/15 at 1923, Until Sat07/13/15 at 1612, Pain, mild to moderate pain (1-6), May give an additional 5 mg in 30 minutes once if pain not relieved., Routine 0105 (Given - Provider: Julieta Montgomery RN)0629 (Given - Provider: Julieta Montgomery RN)1201 (Given - Provider: Kath Deluna, [place]) No Frequency Medication Order 07/11/2015 07/12/2015 07/13/2015 scopolamine (TRANSDERM-SCOP) 1.5 mg (1 mg over 3 days) patch (COMPLETED) 1 dose, Starting on Sat07/11/15 at 1735, Until Sat07/11/15 at 1747, FREDO VASQUEZ: cabinet override 1747 (Given - Provider: Fredo Vasquez CRNA) Linked Groups Order Group 1: oxyCODONE (ROXICODONE) immediate release tablet 5 mg (CANCELED)Jump to med 5 mg, Oral, EVERY 4 HOURS PRN, Starting on 10/12/15 at 1923, Until Sat07/13/15 at 1612, Pain, mild to moderate pain (1-6), May give an additional 5 mg in 30 minutes once if pain not relieved., Routine Or oxyCODONE (ROXICODONE) immediate release tablet 10 mg (CANCELED) 10 mg, Oral, EVERY 4 HOURS PRN, Starting on 07/11/15 at 1923, Until Sat07/13/15 at 1612, Pain, severe pain (7-10), May give an additional 5 mg in 30 minutes once if pain not relieved., Routine documented in this encounter Care Teams Metal Sash Setter Relationship Specialty Start Date End Date Mariluz Watts MD [address] [place] [address] PCP - General 08/22/10 documented as of this encounter
--- OUTSIDE RECORDS SUMMARY | 2024-05-18 19:58 | XMS_ITS | Encounter Summary ---
Author Organization [facility] [place] [address] Care Team Providers Care Bus Mechanic Name Role Phone Mariluz Watts MD Primary Care Provider [phone] Encounter Details Date Type Department Care Team (Latest Contact Info) Description 07/27/2015 - 07/27/2015 7:21 AM EDT Hospital Encounter [place] [address] Rosales Bowman MD [facility] [place] [address] Discharge Disposition: Home Social History Tobacco Use [...] Refills Start Date End Date LACTOBAC CMB #[id number] ORAL Take 1 tablet by mouth daily. [...] to rough spots on thighs. 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 warehouse order picker both scripts 02/02/14 400 g 10 [...] PM EST Office [place] [address] Paula Harris PA [facility] [place] [place] [address] 01/26/2025 9:50 AM EDT Appointment Mammography/DXA at [place] [phone] Joan Deutsch [facility] [address] 01/26/2025 10:50 AM EDT Office [place] [phone] Joan Deutsch [facility] [place] [address] Pending Results Name Type Priority Associated Diagnoses Date /Time FILM LIBRARY-FLUORO OR [id number] ONL Imaging Routine 07/27/2015 10: 20 AM EDT documented as of this encounter Visit Diagnoses Not on filedocumented in this encounter Care Teams Bus Mechanic Relationship Specialty Start Date End Date Mariluz Watts MD [address] [place] [address] PCP - General 08/22/10 documented as of this encounter
--- OUTSIDE RECORDS SUMMARY | 2024-05-18 19:58 | XMS_ITS | Encounter Summary ---
Author Organization [facility] [place] [address] Care Team Providers Care Medication Assistant Name Role Phone Mariluz Watts MD Primary Care Provider [phone] Reason for Visit * Reason Comments Follow-up Encounter Details Date Type Department Care Team (Late st Contact Info) Description 12/11/2016 10:30 AM EDT Office Visit Hematology [place] [address] Abrahan Merlos MD [facility] HEMATOLOGY/[place] [address] Breast cancer, stage 2, right Social History Tobacco Use Types Packs/Day Years [...] Sign Reading Time Taken Comments Blood Pressure 126/66 12/11/2016 9:53 AM EDT Pulse 93 12/11/2016 9:53 AM EDT Temperature 37 ??C (98.6 ??F) 12/11/2016 9:53 AM EDT Respiratory Rate 18 12/11/2016 9:53 AM EDT Oxygen Saturation 97% 12/11/2016 9:53 AM EDT Inhaled Oxygen Concentration - - Weight 97.8 kg (215 lb 9.6 oz) 12/11/2016 9:53 A M EDT Height 166.4 cm (5' 5.5) 12/11/2016 9:53 AM EDT Body Mass Index 35.33 12/11/2016 9:53 AM EDT documented in this encounter Patient Instructions * Patient Instructions* Abrahan Merlos MD - 12/11/2016 10:30 AM EDT Your exam and mammograms look good and I don't see any evidence of breast cancer recurrence. The bone density is slightly better at the wrist and slightly worse at the spine. I will see you next with in one year with Coral Ly with mammograms the same day. Please call my office at [phone] in the interim if you have any concerns over your breast exam. documented in this encounter Progress Notes * Abrahan Merlos MD - 12/11/2016 10:30 AM EDT Subjective: Patient ID: Diamond Gaming is a 70 y.o. female with Stage II breast cancer, seen for ten month followup. HPI Ms. Gaming presented on screening [...] on May 13, 2015. Interval History: Diamond feels no differently since she stopped anastrozole. She still has pain andstiffness in her feet, ankles, knees, and the left thumb which have not changed over the past year.She tried duloxetine for her joints which did not help, and she is back on citalopram. She has chronic sinus congestion which contributes to a raspy voice, and she can no longer sing. She denies any c ough or dyspnea. She had a urinary tract infection in the fall, she has chronic bladder spasms which contribute to large volume of urinary leakage, and she is considering seeing a urologist at [facility]. She has an occasional headache. 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 She continues to take Vitamin D at 2000 units daily. Review of Systems She denies breast pain or a palpable breast mass, chest pain, nausea, vomiting, diarrhea, constipation, headaches, double vision, pain, redness, or swelling in her lower extremities, or any other sites of joint or skeletal pain. The remainder of her review of systems is negative. Objective: Physical Exam Constitutional: She appears well-developed and well-nourished. Her weight is up 1.5 kg over the past ten months, and her BP is 126/66. HENT: Mouth/Throat: Oropharynx is clear and moist. [...] a normal mood and affect. Vitals reviewed. Today's 3-D mammograms show no suspicious microcalcifications, masses, or architectural distortion,with post-treatment changes on the left. The breasts are entirely fatty. Today's Dexa scan shows T scores of -1.5 in the lumbar [...] no evidence of breast cancer recurrence. She has completed five years of anastrozole, and I did not recommend extending the duration of her course of treatment past five years. Her bone density has been stable over the past two years. I will continue to see her once yearly, coordinating my visits with Coral Ly's visits. I will see her next in followup in November of 2017. She knows to contact us in the interim if she has any concerns over her breast exam. Abrahan Merlos MD patient flow coordinator in Hematology-Oncology documented in this encounter Plan of Treatment Upcoming Encounters Date Type Department Care Team (Late st Contact Info) Description 11/16/2024 1:00 PM EST Office Visit [place] [phone] Paula Harris PA [facility] [place] [address] 01/26/2025 9:50 AM EDT Appointment Mammography/DXA at [place] [phone] Joan Deutsch, GE [facility] [place] [address] 01/26/2025 10:50 AM EDT Office [place] [address] Joan Deutsch, [place] [facility] [place] [address] documented as of this encounter Visit Diagnoses Diagnosis Breast cancer, stage 2, right documented in this encounter Care Teams Medication Assistant Relationship Specialty Start Date End Date Mariluz Watts MD [address] [place] [address] PCP - General 08/22/10 documented as of this encounter
--- OUTSIDE RECORDS SUMMARY | 2024-05-18 19:58 | XMS_ITS | Encounter Summary ---
Author Organization [facility] [place] [address] Care Team Providers Care Welder Production Line Gas Name Role Phone Mariluz Watts MD Primary Care Provider [phone] Encounter Details Date Type Department Care Team (Latest Contact Info) Description 09/14/2015 11:00 AM EST Office [place] [address] Rosales Bowman MD [facility] [place] [address] History of nephrolithiasis Social History Tobacco Use Types Packs/Day Years [...] Sign Reading Time Taken Comments Blood Pressure 136/74 09/14/2015 11:15 AM EST Pulse 70 09/14/2015 11:15 AM EST Temperature 36.7 ??C (98 ??F) 09/14/2015 11:15 AM EST Respiratory Rate 20 09/14/2015 11:15 AM EST Oxygen Saturation 95% 09/14/2015 11:15 AM EST Inhaled Oxygen Concentration - - Weight 95.3 kg (210 lb) 09/14/2015 11:15 AM EST Height 166.4 cm (5' 5.5) 09/14/2015 11:15 AM ES T Body Mass Index 34.41 09/14/2015 11:15 AM EST documented in this encounter Progress Notes * Rosales Bowman MD - 09/14/2015 11:16 AM EST I had the pleasure of seeing Mrs. Diamond Gaming back in clinic today to discuss her history of nephrolithiasis. She took out the stent 2 days later without trouble. She is s/p left ureteroscopy with basket stone extraction on 07/27/2015. A stent with a string was placed with the plan for her to remove the stent on POD#2. She now returns for clinical follow-up and an ultrasound. Today, she states that she has a lot of periodic smooth pain in her bladder. This is not necessarily associated with voiding. She has had these bladder spasms since she had the first stent placed when she presented with left pyelonephritis. She has had no flank pain since her surgery. She also has what sounds like urge incontinence. She did take some oxybutyinine which helped, but stopped taking it because she was worried about lightheadedness. She also stopped Flomax at the same time. To rule out a UTI, she went to [facility] 5 days ago and had a u/a which was completely normal. This was the second stone she had. She passed a stone in 1996. The patient's past medical and past surgical history were reviewed and are unchanged compared to the documentation of the day of her surgery (07/27). REVIEW OF SYSTEMS: 10 out of 14-point systems was reviewed and is as per the history. In addition, the patient notes ringing in ears, joint pain, neck pain, drug allergies. PHYSICAL EXAM: BP 136/74 mmHg Pulse 70 Temp(Src) 36.7 ??C (98 ??F) (Oral) Resp 20 Ht 166.4 cm (5' 5.5) Wt 95.255 kg (210 lb) BMI 34.40 kg/m2 SpO2 95% General: Patient is a well-appearing female in no acute distress. Head: normocephalic, atraumatic. ENT: moist mucous membranes, supple neck, midline trachea Lungs: respirations unlabored, no audible wheezing. Abdomen: soft, nontender, nondistended, no palpable masses. Back: No flank tenderness bilaterally. Neuro: awake, alert, oriented to conversation, normal gait, neurologically grossly intact LABS: Creatinine: Lab Results Component Value Date CREATININE 0.83 07/13/2015 IMAGING: I personally reviewed and reviewed with the patient her most recent renal ultrasound from today which was normal. ASSESSMENT AND PLAN: Ms. Diamond Gaming is a 69 y.o. female with a history of nephrolithiasis. We discussed the possibility of obtaining a 24 h urine. However, she states it has been 18 years since her previous stone and would like to hold off on that. Also discussed general measures: - drink a lot (what she is doing) - limit sodium intake - limit red meat intake Regarding the urgency and the bladder spasms, she does not want to do add any medications for this at this time. We did discuss the option of adding anticholinergics and the side-effects associated with these drugs. At this point, she would like to hold off on any medications for her urgency and urge incontinence and wishes to RTC as needed. ROSALES BOWMAN MD 13 out of 15 minutes of this encounter was spent in counseling and coordinating care. documented in this encounter Plan of Treatment Upcoming Encounters Date Type Department Care Team (Late st Contact Info) Description 11/16/2024 1:00 PM EST Office Visit [place] [phone] Paula Harris PA [facility] [place] [address] 01/26/2025 9:50 AM EDT Appointment Mammography/[place] [address] Joan Deutsch APRN [facility] [place] [place] [address] 01/26/2025 10:50 AM EDT Office Visit [place] [address] Joan Deutsch ANGULAR JS DEVELOPER [facility] [place] [address] documented as of this encounter Visit Diagnoses Diagnosis History of nephrolithiasis Personal history of urinary calculi documented in this encounter Care Teams Welder Production Line Gas Relationship Specialty Start Date End Date Mariluz Watts MD [address] [place] [address] PCP - General 08/22/10 documented as of this encounter
--- OUTSIDE RECORDS SUMMARY | 2024-05-18 19:58 | XMS_ITS | Encounter Summary ---
Author Organization [facility] [place] [address] Care Team Providers Care Forensic Manager Name Role Phone Mariluz Watts MD Primary Care Provider [phone] Reason for Referral * Consultation (Routine) - Closed Specialty Diagnoses / Procedures Referred By John lyons Referred To Contact Orthopaedics Diagnoses Right foot pain Scar Aviles II [facility] [place] [address] [facility] [address] [place] [phone] Referral ID Status Reason Start Date Expiration Date V isits Requested Visits Authorized [id number] Closed Consult, Test & Treat 05/16/2016 05/16/2017 1 1 Encounter Details Date Type Department Care Team (Latest Contact Info) Description 05/16/2016 9:00 AM EDT Office [place] [phone] Scar Aviles II [facility] [address] Primary osteoarthritis involving multiple joints; Right foot pain Social History Tobacco Use Types Packs/Day Years [...] Sign Reading Time Taken Comments Blood Pressure 123/68 05/16/2016 8:43 AM EDT Pulse 73 05/16/2016 8:43 AM EDT Temperature 37.1 ??C (98.7 ??F) 05/16/2016 8:43 AM ED T Respiratory Rate - - Oxygen Saturation 99% 05/16/2016 8:43 AM EDT Inhaled Oxygen Concentration - - Weight 99.8 kg (220 lb) 05/16/2016 8:43 AM EDT Height 166.4 cm (5' 5.5) 05/16/2016 8:43 AM EDT Body Mass Index 36.05 05/16/2016 8:43 AM EDT documented in this encounter Progress Notes * Scar Aviles II, DO - 05/16/2016 9:00 AM EDT Rheumatology Outpatient follow up Note History of Present Illness: Diamond Gaming is a 70 y.o. 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 I last saw her in 2013 and since then she has stopped her aromatase inhibitor without much of a difference in her arthralgias. She has foot pain and knee pain and GERD and she is working to lose weight as her weight may be making all of these worse. She is planning to go back to PT for a sense of unbalance. She has been having issues with her R foot, and is hoping to avoid foot surgery, though would like to meet again with Dr. Kong to review non-surgical options. She also notes continuous L thumb pain. She takes intermittent Ibuprofen with some help. She denies red, hot, swollen joints. She continues on prednisone 5mg PO QD and she feels that she continues to get benefit from this. ROS: (-)fevers, (-)chills, CP, SOB, no red, hot, swollen joints. Physical Examination: BP 123/68 Pulse 73 Temp 37.1 ??C (98.7 ??F) (Oral) Ht 166.4 cm (5' 5.5) Wt 99.8 kg (220 lb) SpO2 99% BMI 36.05 kg/m2 General: AAOx3, NAD, pleasant woman sitting comfortably, easily able to get up to the exam table. HEENT: EOMI, PERRL, Mucous membranes are moist Cardiovascular: RR, (-)murmurs, rubs, or gallops. Lungs: Clear to auscultation bilaterally. (-)R/R/W Neuro: Alert and oriented x3. Strength 5/5 throughout. Extremities: Elbows:FROM, (-)pain, (-)nodules, mild hyperextension -5 degrees b/l. Wrists: FROM, no swelling, non-tender Hands: No synovitis, no MCP compression tenderness, full claw and fist. (+)heberden's nodes. (+)basilar thumb joint tenderness. Knees without effusions Ankles: FROM Feet: osteoarthritic changes. No toe splaying. Studies: 12/03/12 hand x-rays consistent with OA. Impression: Diamond Gaming is a 70 y.o. female who presents today for followup of arthralgias secondary to osteoarthritis without signs or symptoms of an inflammatory arthritis. As she finds benefit with the prednisone, we will continue the 5mg once daily. We had a discussion about the risks and benefits of this strategy. She would like to avoid opioid medications and because of her bleeding diathesis she avoids chronic NSAIDs. We discussed the possibility of an SNRI such as cymbalta for her osteoarthritispain and she would like to try this. We will also refer to podiatry for review of non-surgical options. Recommendations: OA -Prednisone 5mg -Switch SSRI to Snri - start with cymbalta 30mg PO QD x 1-2 weeks, and then increase to 60mg PO qd -She will f/u with her PCP in a few weeks, but will let me know if she has any issues with the switch from her SSRI to an SNRI. F/U PRN CC: MARILUZ WATTS MD documented in this encounter Plan of Treatment Upcoming Encounters Date Type Department Care Team (Late st Contact Info) Description 11/16/2024 1:00 PM EST Office Visit General Surgery at [place] [phone] Paula Harris, PA [facility] [place] [address] 01/26/2025 9:50 AM EDT Appointment Mammography/DXA at [place] [phone] Joan Deutsch, [facility] [place] [address] 01/26/2025 10:50 AM EDT Office Visit General Surgery at [place] [phone] Joan Deutsch, CONTACT [employer] FL[employer]ING PUN[employer] [facility] [place] [address] Scheduled Referrals Name Type Priority Associated Diagnoses Orde r Schedule Referral to Podiatry Outpatient Referral Routine Right foot pain Ordered: 05/16/2016 documented as of this encounter Visit Diagnoses Diagnosis Primary osteoarthritis involving multiple joints Right foot pain Pain in limb documented in this encounter Care Teams Forensic Manager Relationship Specialty Start Date End Date Mariluz Watts MD [address] [place] [address] PCP - General 08/22/10 documented as of this encounter
--- OUTSIDE RECORDS SUMMARY | 2024-05-18 19:58 | XMS_ITS | Encounter Summary ---
Author Organization [facility] [place] [address] Care Team Providers Care Produce Assistant Name Role Phone Mariluz Watts MD Primary Care Provider [phone] Reason for Visit * Auth/Cert Specialty Diagnoses / Procedures Referred By John lyons Referred To Contact Diagnoses Pain Procedures CYSTO, STENT PLACEMENT Referral ID Status Reason Start Date Expiration Date Visits Re quested Visits Authorized [id number] 1 1 Encounter Details Date Type Department Care Team (Late st Contact Info) Description 07/11/2015 5:47 PM EDT Anesthesia [place] [address] Aide Raymundo MD [facility] [place] [address] Jeramy Hernandez MD [facility] [place] [address] Anesthesia Record Procedure Summary Procedure Name Responsible Anesthesiologist Anesthesia Start Time Anesthesia Stop Time CYSTO, STENT PLACEMENT (WRVU 2.82) (Left: Bladder) Aide Raymundo MD 07/11/15 1747 07/11/15 1856 Events Date Time Event Comment 07/11/2015 1738 1747 AN Verify 1747 Start 1749 An Start Data 1758 An Induction 1800 An Intubation 1804 Anesthesia Ready 180 Procedure Start Time out com plete prior to surgery start. 1844 Extubation/LMA Out Extubated w/o event to at 6L. 1847 an stop data 185 Stop To PACU, report to RN. VSS. Meds Name Total Midazolam 2 mg fentaNYL 100 mcg Propofol 220 mg Rocuronium 50 mg PHENYLephrine 960 mcg Ondansetron 4 mg Dexamethasone 4 mg Neostigmine 5 mg Glycopyrrolate 0.8 mg Promethazine 2.5 mg piperacillin-tazobactam (ZOSYN) 3.375 g in dextrose 5% 50 mL 3.375 g scopolamine (TRANSDERM-SCOP) 1.5 mg (1 m g over 3 days) patch 1.5 mg lactated ringers infusion 600 mL * Agents Name O2 Air Isoflurane (et) * Blood No blood administrations on [...] (RETIRED) Peripheral IV Line - Single Lumen 07/11/15; metacarpal vein left (top of hand); 20 gauge; 07/13/15; 1400 07/11/15 0000 by Eunice Ojeda RN 07/13/15 1400 by Kath Deluna RN ETT Mask Ventilation: Ea sy (1); ETT Type: Cuffed, Oral; ETT Size: 7 mm; Ordoñez Blade: 2; Notes: Asleep, Pre-O2, Stylette; Attempts: 1; Laryngoscopy Grade: 1; ETT Placement Verified By: Auscultation, Capnometry, Visual; Secured at Teeth: 21 cm; Inserted by: Roverto Vasquez CRNA; Removal Date: 07/11/15; Removal Time: 184307/11/15 1800 by Fredo Vasquez, LAKSHMI 07/11/15 184 by Fredo Vasquez CRNA Urethral Catheter 07/11/15; 1823; Urol ogic surgery, Physician order; Physician order; indwelling double lumen catheter; 100% silicone; 16; inserted at this facility (Inserted by Jennifer Suresh MD. ); 1; 5; 10; none; drainage bag to dependent drainage; 07/12/15; 0907/11/151823 by Linsey Rangel RN 07/12/15929 by Kath Deluna RN documented in this encounter Social History Tobacco [...] Postprocedure Evaluation - Aide Raymundo MD - 07/11/2015 7:42 PM EDT Patient: Diamond Gaming Procedure(s) Performed: Procedure(s): CYSTO, STENT PLACEMENT CYSTO, RETROGRADE, URETEROPYELOGRAPHY Actual Anesthetic: general Patient location: PACU Post-op pain: Adequate analgesia Post-op nausea: no nausea or vomiting Last Vitals: Filed Vitals: 07/11/15 1930 BP: 109/62 Pulse: 89 Temp: Resp: 19 Post-op cardiovascular and respiratory status: is stable Level of consciousness: awake, alert and oriented Complications: no apparent complications and tolerated the procedure well Fluid Status: normal * Anesthesia Preprocedure Evaluation - Jeramy Hernandez MD - 07/11/2015 4:47 PM EDT Images from the original note [...] epi, into skin and subcutaneous tissues (CPT [id number]) left total hip arthroplasty, anterior Hueter approach with [place] table (CPT code 52110) Left hip intraoperative radiologic examination (CPT code 02216) Amicar infusion (5 g IV load, then 1g/hr x 3 hrs) Components Used: Deale Accolade stem, size 4, 127 degrees Trident PSLcup, 52 mm, solid 32 mm ID, alumina 32-4 mm alumina head ??? Hip pain ??? S/P Right ARSLAN 03/06/2005 ([facility]) SURGERY DATE: 03/06/2005 [facility] STEINER, NICK Angel [facility] Procedure Performed: Right total hip arthroplasty, cementless, [id number] Components Used: Deale Trident 52 shell outer diameter Femoral head 32-4 mm Deale Accolade Femoral stem size 4, 127 deg [...] IV access: Peripheral line Anesthesia Plan: ASA 3 general, with a(n) intravenous induction Plan GA, hx of aortic stenosis (severity unknown) and recent volume. Hypotensive today. Known PONV Region - Other Informed Consent: Anesthetic plan and risks discussed with patient. Plan discussed with MILLER KILN DRIED SALT. Misc. Assessment: documented in this encounter Plan of Treatment Upcoming Encounters Date Type Department Care Team (Late st Contact Info) Description 11/16/2024 1:00 PM EST Office [place] [phone] Paula Harris PA [facility] [place] [address] 01/26/2025 9:50 AM EDT Appointment Mammography/[place] [address] Joan Deutsch APRN [facility] [place] [address] 01/26/2025 10:50 AM EDT Office Visit [place] [address] Joan Deutsch, GE [facility] [place] [address] documented as of this encounter Visit Diagnoses Not on filedocumented in this encounter Administered Medications Inactive Administered Medications - up to 3 most recent administrations Medication Order MAR Action Action Date Dose Rate Site dexamethasone (DECADRON) injection PRN, Starting on Sat07/11/15 at 1806, Until Sat07/11/15 at 1856, Anesthesia Intra-op, Routine Given 07/11/2015 6:06 PM EDT 4 mg fentaNYL 50 mcg/mL multi-dose injection PRN, Starting on Sat07/11/15 at 1752, Until Sat07/11/15 at 1856, Pain, Anesthesia Intra-op, Routine Given 07/11/2015 5:58 PM EDT 75 mcg Given 07/11/2015 5:52 PM EDT 25 mcg glycopyrrolate (ROBINUL) multi-dose injection PRN, Starting on Sat07/11/15 at 1835, Until Sat07/11/15 at 1857, Anesthesia Intra-op, Routine Given 07/11/2015 6:29 PM EDT 0.8 mg lactated ringers infusion 50 mL/hr, Intravenous, CONTINUOUS, Starting on Sat07/11/15 at 1602, Until Sat07/12/15 at 0710 New Bag 07/11/2015 5:47 PM EDT midazolam (PF) (VERSED) 1 mg/mL multi-dose injection PRN, Starting on Sat07/11/15 at 1747, Until Sat07/11/15 at 1856, Sleep, Anesthesia Intra-op, Routine Given 07/11/2015 5:47 PM EDT 2 mg neostigmine (PROSTIGMINE) multi-dose injection PRN, Starting on Sat07/11/15 at 1835, Until Sat07/11/15 at 1857, Anesthesia Intra-op, Routine Given 07/11/2015 6:29 PM EDT 5 mg ondansetron (ZOFRAN) injection PRN, Starting on Sat07/11/15 at 1818, Until Sat07/11/15 at 1856, Nausea, Anesthesia Intra-op, Routine Given 07/11/2015 6:18 PM EDT 4 mg PHENYLephrine HCl in NS (PF) (TOSHA-SYNEPHRINE) 0.8 mg/10 mL (80 mcg/mL) multi-dose injection Syrg PRN, Starting on Sat07/11/15 at 1759, Until Sat07/11/15 at 1856, Anesthesia Intra-op, Routine Given 07/11/2015 6:21 PM EDT 160 mcg Given 07/11/2015 6:18 PM EDT 160 mcg Given 07/11/2015 6:14 PM EDT 160 mcg piperacillin-tazobactam (ZOSYN) 3.375 g in dextrose 5% 50 mL 3.375 g, Intravenous, ONCE, 1 dose, On Sat07/11/15 at 1656, Administer over 4 Hours, inbound call center representative to OR, Indication for (Active or Suspected): Urinary Tract/Pyelonephritis Given 07/11/2015 6:04 PM EDT 3.3 75 g promethazine (PHENERGAN) injection PRN, Nausea, Starting on Sat07/11/15 at 1817, Until Sat07/11/15 at 1856, Anesthesia Intra-op Given 07/11/2015 6:17 PM EDT 2.5 mg propofol (DIPRIVAN) 10 mg/mL bolus injection (Anesthesia) PRN, Starting on Sat07/11/15 at 1758, Until Sat07/11/15 at 1856, Anesthesia Intra-op Given 07/11/2015 6:35 PM EDT 20 mg Given 07/11/2015 6:25 PM EDT 50 mg Given 07/11/2015 5:58 PM EDT 150 mg rocuronium (ZEMURON) multi-dose injection PRN, Starting on Sat07/11/15 at 1758, Until Sat07/11/15 at 1856, Anesthesia Intra-op, Routine Given 07/11/2015 5:58 PM EDT 50 mg scopolamine (TRANSDERM-SCOP) 1.5 mg (1 mg over 3 days) patch 1 dose, Starting on Sat07/11/15 at 1735, Until Sat07/11/15 at 1747, FREDO VASQUEZ: cabinet override Given 07/11/2015 5:47 PM EDT 1.5 mg documented in this encounter Care Teams Produce Assistant Relationship Specialty Start Date End Date Mariluz Watts MD [address] [place] [address] PCP - General 08/22/10 documented as of this encounter
--- OUTSIDE RECORDS SUMMARY | 2024-05-18 19:58 | XMS_ITS | Encounter Summary ---
Author Organization [facility] [place] [address] Care Team Providers Care Manager Poker Name Role Phone Mariluz Watts MD Primary Care Provider [phone] Reason for Visit * Reason Comments Bilateral Foot Pain Rt > Lt * Consultation (Routine) - Closed Specialty Diagnoses / Procedures Referred By John lyons Referred To Contact Orthopaedics Diagnoses Right foot pain Scar Aviles II, [facility] [place] [address] [facility] [address] [place] [phone] Referral ID Status Reason Start Date Expiration Date V isits Requested Visits Authorized [id number] Closed Consult, Test & Treat 05/16/2016 05/16/2017 1 1 Encounter Details Date Type Department Care Team (Late st Contact Info) Description 05/23/2016 11:00 AM EDT Office [place] [address] Cornell Marinelli, [facility] [place] [address] Right foot pain; Osteoarthritis of midfoot, right; Hallux valgus of right foot Social History Tobacco Use [...] Sign Reading Time Taken Comments Blood Pressure 122/72 05/23/2016 10:54 AM EDT Pulse 78 05/23/2016 10:54 AM EDT Temperature - - Respiratory Rate - - Oxygen Saturation - - Inhaled Oxygen Concentration - - Weight 99.4 kg (219 lb 1.6 oz) 05/23/2016 10:54 AM EDT fully clothed Height 169 cm (5' 6.54) 05/23/2016 10: 54 AM EDT with shoes Body Mass Index 34.8 05/23/2016 10:54 AM EDT documented in this encounter Progress Notes * Cornell Marinelli PA - 05/23/2016 11:00 AM EDT Chief complaint: Right foot pain History of present illness: Diamond Gaming is a 70 y.o. year-old female who presents today for evaluation for right foot pain, since 1996, she explains foot pain. She was diagnosed with plantar fasciitis in 1996, and has noted progressive foot pain since then. She notes a recent flare of her pain, pointing to the dorsum of her midfoot, she has noted a progressive bump of her big toe and crossing over her first and second toe. She is looking for nonoperative treatment measures for her diagnoses.She knows she has a bunion, and would like some help with treatment of this. Patient denies any numbness, tingling, history of diabetes, vitamin B12 or folate issues. She denies any instability or cat rd and locking of her midfoot or ankle. She is noted she is wearing a bigger shoe which helps with the discomfort. The pain is variable, can be dull and achy, and sharp and intense. Aggravating factors include walking, uneven ground. Relieving factors include a bigger shoe and toe spacers. Past medical history: Patient Active Problem List Diagnosis Date Noted ??? Osteoarthritis of midfoot 05/23/2016 ??? Hallux valgus of right foot 05/23/2016 ??? Arthritis of right foot 08/12/2013 ??? Status post hip replacement 12/22/2012 ??? Dupuytren's contracture 12/03/2012 ??? S/P tubal ligation 07/25/2012 ??? Osteoarthritis of left knee 07/25/2012 ??? 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 Aortic valve sclerosis 07/25/2012 ??? Postoperative anemia due to acute blood loss 07/25/2012 ??? S/P Left Anterior ARSLAN- 07/22/12 (Dr. Ervin) 07/22/2012 ??? Hip pain 01/25/2012 ??? S/P Right ARSLAN 03/06/2005 ([facility]) 01/25/2012 ??? Rosacea 03/25/2011 ??? GI bleeding 03/25/2011 ??? Anxiety associated with depression ??? Benign hypermobility syndrome ??? Diverticulosis ??? Degenerative joint disease ??? Breast cancer, stage 2 01/25/2010 History of blood clots or bleeding disorders: Denies Denies history of cardiac, lung, kidney, liver diease or diabetes Medications: ??? citalopram (CELEXA) 20 mg Tablet ??? LACTOBAC CMB #[id number] ORAL ??? Lysine 500 mg Tablet ??? omeprazole (PRILOSEC) 20 mg Capsule, Delayed Release(E.C.) ??? predniSONE (DELTASONE) 5 mg Tablet ??? multivitamin (THERAGRAN) tablet ??? ammonium lactate (LAC-HYDRIN) 12 % lotion ??? metroNIDAZOLE (METROGEL) 1 % gel ??? amoxicillin-clavulanate (AUGMENTIN) 500-125 mg per tablet ??? ibuprofen (ADVIL;MOTRIN) 600 mg tablet ??? cholecalciferol, Vitamin D3, (VITAMIN D) 1,000 unit Tab tablet ??? DULoxetine (CYMBALTA) 30 mg Capsule, Delayed Release(E.C.) Allergies: Allergies Allergen Reactions ??? Hymenoptera Allergenic Extract Anaphylaxis Bee Stings ??? Tetracyclines Anaphylaxis ??? Plaquenil [Hydroxychloroquine] Rash and Other (See Comments) Hallucinations ??? Trazodone Rash and Other (See Comments) Unsure if hallucinations occur with this or plaquenil. Social history: Social History Substance Use Topics ??? Smoking status: Former Smoker Packs/day: 1.00 Years: 3.00 Types: Cigarettes Quit date: 09/30/1968 ??? Smokeless tobacco: Never Used ??? Alcohol use No Review of systems: No chest pain or shortness of breath at baseline No fevers, night sweats or chills Questionnaire Responses: myD-H Hip & Knee 07/13/2014 MODEMS Expectation - MODEMS Satisfaction 33.33 VR12 - Physical Component Summary 36.82 VR12 - Mental Component Summary 52.9 PROMIS-10 General Health Good PROMIS-10 Quality of Life Fair PROMIS-10 Physical Health Good PROMIS-10 Mental Health Good PROMIS-10 Social Activity and Relationship Satisfaction Fair PROMIS-10 Social Roles at Home and Work Good PROMIS-10 Everyday Physical Activities Mostly PROMIS-10 Anxious or Depressed last 7 days Sometimes PROMIS-10 Fatigue last 7 days Mild PROMIS-10 Pain last 7 days 4 PROMIS PHYSICAL HEALTH SCORE (range 16-68) 44.9 PROMIS MENTAL HEALTH SCORE (range 21-68) 38.8 Arthritis Ladder - Hip - Physical Exam: No Apparent distress Right foot exam: Skin is intact without erythema, edema, ecchymosis, or open wound. There is a medial protuberance of the first MTP joint with cockup deformity of the second toe. There is TTP over the dorsum of the midfoot at the talonavicular joint, first, second, third TMT joints. There is also TTP over the dorsum and medial aspect of the first MTP joint. Great toe extension to 25??, flexion to 20??. Active andpassive motions increased symptoms. 5/5 EHL/FHL. Ankle range of motion is intact, 5/5 MMT in all planes. Negative anterior drawer, subtalar tilt, calcaneal squeeze. No palpable heel cord defects. PT/DP pulses 2+. Superficial peroneal, deep peroneal, sural, saphenous, and tibial nerves intact to touch. Imaging: Personal review of the patient's imaging reveals: XR obtained and reviewed, there is no fracture, dislocation, or displacement. There is midfoot osteoarthritis seen in the talonavicular, first, second TMT joints. There is also a hallux valgus deformity, IM angle 14?? with osteoarthritis of the first MTP joint characterized by subchondral sclerosis, dorsal osteophyte formation, joint space narrowing. Assessment: 70 y.o. year-old female with midfoot arthritis, hallux valgus versus hallux rigidus of the right foot Plan: We discussed treatment for the above diagnoses. For her hallux valgus, we recommended wide toe box shoes with toe spacers. Otherwise, consider physical therapy, oral analgesia extension into inflammatory is tolerated. In regards to conservative management, the above other mainstays, otherwiselooking at surgical intervention with Lapidus versus various soft tissue and hard tissue procedures. Patient is receptive to this, she has not interested in being laid up off of her feet for an extended period of time. We discussed treatment for midfoot osteoarthritis with rigid supportive shoe, anti-inflammatory, Steroid injection, which she explains she has had 5-6 of them. They helped initially, but the last one did not help. He discussed fusion type surgeries. We discussed she does have some first MTP osteoarthritis, she may benefit from a steel insert of the forefoot. This is provided inthe clinic, she will attempt this and see if this helps. Patient agrees with plan, she will follow-up as needed in the future if she is interested in surgical intervention. Follow up: When necessary This plan was discussed with the patient and they are in agreement. All of the patient's questions were answered. The above dictation was made with voice recogonition software documented in this encounter Plan of Treatment Upcoming Encounters Date Type Department Care Team (Late st Contact Info) Description 11/16/2024 1:00 PM EST Office [place] [address] Paula Harris PA [facility] [place] [address] 01/26/2025 9:50 AM EDT Appointment Mammography[place] [address] Joan Deutsch APRN [facility] [address] 01/26/2025 10:50 AM EDT Office [place] [address] Joan Deutsch APRN [facility] [address] documented as of this encounter Results * XR Foot Min 3 views Right (Generic) (05/23/2016 10:13 AM EDT) Anatomical Region Laterality Modality Foot Right Digital Radiogra phy Impressions 05/23/2016 11:43 AM EDT Degenerative arthropathy is present and most prominent in the mid foot. Narrative 05/23/2016 11:43 AM EDT EXAMINATION: XR FOOT MIN 3 VIEWS RIGHT CLINICAL HISTORY: right foot pain TECHNIQUE: AP, oblique and lateral of the right foot. COMPARISON: None FINDINGS: There is degenerative disease in the midfoot manifest by joint space narrowing and articular surface sclerosis, particularly at the tarsal metatarsal joints. Prominent osteophytes are present at the articulation between the navicular and first cuneiform. There is articular surface sclerosis at the first metatarsal phalangeal joint. A plantar calcaneal spur is present. Procedure Note Cb Carrion MD - 05/23/2016 EXAMINATION: XR FOOT MIN 3 VIEWS RIGHT CLINICAL HISTORY: right foot pain TECHNIQUE: AP, oblique and lateral of the right foot. COMPARISON: None FINDINGS: There is degenerative disease in the midfoot manifest by joint spacenarrowing and articular surface sclerosis, particularly at the tarsal metatarsaljoints. Prominent osteophytes are present at the articulation between thenavicular and first cuneiform. There is articular surface sclerosis at the firstmetatarsal phalangeal joint. A plantar calcaneal spur is present. IMPRESSION Degenerative arthropathy is present and most prominent in the mid foot. Shekhar Moody MD IMG DX ORDERABLES documented in this encounter Visit Diagnoses Diagnosis Right foot pain Pain in limb Osteoarthritis of midfoot, right Hallux valgus of right foot Right foot pain Pain in limb documented in this encounter Care Teams Manager Poker Relationship Specialty Start Date End Date Mariluz Watts MD [address] [place] [address] PCP - General 08/22/10 documented as of this encounter
--- OUTSIDE RECORDS SUMMARY | 2024-05-18 19:58 | XMS_ITS | Encounter Summary ---
[place] [address] Care Team Providers Care Pastor Name Role Phone Mariluz Watts MD Primary Care Provider [phone] Reason for Visit * Reason Comments Follow-up Encounter Details Date Type Department Care Team (Late st Contact Info) Description 02/09/2016 2:00 PM EDT Office Visit Hematology [place] [address] Abrahan Merlos MD [facility] HEMATOLOGY/[place] [address] Breast cancer, stage 2, right; Osteopenia Social History Tobacco Use Types Packs/Day Years [...] Sign Reading Time Taken Comments Blood Pressure 146/72 02/09/2016 1:55 PM EDT Pulse 97 02/09/2016 1:55 PM EDT Temperature 37.2 ??C (99 ??F) 02/09/2016 1:55 PM EDT Respiratory Rate 20 02/09/2016 1:55 PM EDT Oxygen Saturation 98% 02/09/2016 1:55 PM EDT Inhaled Oxygen Concentration - - Weight 96.3 kg (212 lb 3.2 oz) 02/09/2016 1:55 P M EDT Height 166.5 cm (5' 5.55) 02/09/2016 1:55 PM ED T Body Mass Index 34.72 02/09/2016 1:55 PM EDT documented in this encounter Patient Instructions * Patient Instructions* Abrahan Merlos MD - 02/09/2016 2:14 PM EDT Your exam looks good and I don't see any evidence of breast cancer recurrence. I will see you next in late November 2016, I will coordinate with Coral and with your mammograms, and aDexa scan that day. If we can't coordinate with Coral, ask my litigation secretary to have me call you. Please call my office at [phone] in the interim if you have any concerns over your breast exam. documented in this encounter Progress Notes * Abrahan Merlos MD - 02/09/2016 2:14 PM EDT Subjective: Patient ID: Diamond Gaming is a 70 y.o. female with Stage II breast cancer, seen for six month followup. HPI Ms. Gaming presented on [...] She still has pain andstiffness in her wrists, hands, and thumbs, which she ascribes to anastrozole, and she is still dropping things because of the clumsiness. 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 She has a chronic sinus infection causing a cou gh productive of green sputum, sinus headaches, and periodic dizziness and tinnitus. She had urosepsis related to a kidney stone in June 2015 and she had a temporary stent placed. She has not had any urinary tract infections since that episode. She takes Vitamin D at 2000 units daily, and she walks her dog 45 minutes a day five days a week. Review of Systems She denies breast pain or a palpable breast mass, a cough, shortness of breath, chest pain, nausea,vomiting, diarrhea, constipation, headaches, double vision, pain, redness, or swelling in her lowerextremities, or any other sites of joint or skeletal pain. The remainder of her review of systems is negative. Objective: Physical Exam Constitutional: She is oriented to person, place, and time. She appears well- developed and well-nourished. Her weight is unchanged over the past eight months, and her BP is 146/72. HENT: Mouth/Throat: Oropharynx is clear and moist. No oropharyngeal exudate. Neck: No supraclavicular adenopathy. Cardiovascular: Normal rate, regular rhythm and normal heart sounds. Exam reveals no gallop. No murmur heard. Pulmonary/Chest: Breath sounds normal. She has no wheezes. She has no rales. She has bilateral mastopexy scars. There are no masses within the left breast. There are no masses within the right breast, and there is no axillary adenopathy. Abdominal: Soft. She exhibits no distension and no mass. There is no tenderness. There is no guarding. Musculoskeletal: She exhibits no edema. She has no pain on percussion over the spine, sternum, ribs, or hips. Lymphadenopathy: She has no cervical adenopathy. Neurological: She is alert and oriented to person, place, and time. Skin: Skin is warm and dry. No erythema. Psychiatric: She has a normal mood and affect. Vitals reviewed. The most recent 3-D mammograms from December 19, 2015 showed no suspicious microcalcifications, masses, or architectural distortion, with post-surgical changes bilaterally. The breasts were of scattereddensity. The CT of the abdomen from July 11, 2015 which showed a stone in the mid-pole of the left kidneyalso showed no evidence of metastatic disease. The most recent Dexa scan from December 21, 2014 showed T scores of -1.4 in the lumbar spine (down from -1.2 in November 2012), and -1.8 in the left wrist (down from -1.4 in November 2012). The most recent LFTs from December 21, [...] extending the duration of her course of treatment. I willcontinue to see her once yearly, coordinating my visits with Coral Ly's visits. At our next followup in November 2016 I will repeat her Dexa scan. She knows to contact me in the interim if she has any concerns over her breast exam. Abrahan Merlos MD golf club repairer in Hematology-Oncology documented in this encounter Plan of Treatment Upcoming Encounters Date Type Department Care Team (Late st Contact Info) Description 11/16/2024 1:00 PM EST Office Visit [place] [address] Paula Harris PA [facility] [place] [address] 01/26/2025 9:50 AM EDT Appointment Mammography/[place] [address] Joan Deutsch, [facility] [place] [address] 01/26/2025 10:50 AM EDT Office Visit [place] [phone] Joan Deutsch, [facility] [place] [address] documented as of this encounter Results * Dexa Central-Spine, Hip, And/Or Whole Body (12/11/2016 8:24 AM EDT) Anatomical Region Laterality Modality C-spine, Hip N/A Other Impressions 12/11/2016 2:52 PM EDT * ??Bone mineral density is stable compared to 2015. * ??Osteopenia by WHO diagnostic criteria. Estimating [...] BMD measurements and plots are available in [employer] under the imaging tab. Paper copies will be sent to providers without [employer] access. If you have received this report without the data sheet and do not have access to [employer], please contact Radiology Radio Operator at [phone] Saturday thru Saturday 8am-4pm. Narrative 12/11/2016 2:52 [...] Bone mineral density is stable compared to 2014. * Osteopenia by WHO diagnostic criteria. Estimating [...] BMD measurements and plots are available in ECleverMilesunder the imaging tab. Paper copies will be sent to providers without [employer] access.If you have received this report without the data sheet and do not haveaccess to [employer], please contact Radiology Radio Operator at [phone] Saturday thruFrid 8am-4pm. Abrahan Merlos MD IMG DEXA ORDERABLES documented in this encounter Visit Diagnoses Diagnosis Breast cancer, stage 2, right Osteopenia Disorder of bone and cartilage, unspecified Osteopenia Disorder of bone and cartilage, unspecified documented in this encounter Care Teams Pastor Relationship Specialty Start Date End Date Mariluz Watts MD [address] [facility] [address] [place] [address] PCP - General 08/22/10 documented as of this encounter
--- OUTSIDE RECORDS SUMMARY | 2024-05-18 19:58 | XMS_ITS | Encounter Summary ---
Author Organization [facility] [place] [address] Care Team Providers Care Bench Inspector Name Role Phone Mariluz Watts MD Primary Care Provider [phone] Reason for Visit * Auth/Cert Specialty Diagnoses / Procedures Referred By John lyons Referred To Contact Diagnoses Pain Procedures CYSTO, STENT PLACEMENT Referral ID Status Reason Start Date Expiration Date Visits Re quested Visits Authorized [id number] 1 1 Encounter Details Date Type Department Care Team (Late st Contact Info) Description 07/11/2015 12:05 AM EDT - 07/11/2015 1:57 PM EDT [facility] [place] [address] Jose D Chauhan III, MD [facility] [place] [address] Social History Tobacco Use Types Packs/Day Years [...] Refills Start Date End Date LACTOBAC CMB #[id number] ORAL Take 1 tablet by mouth daily. [...] to rough spots on thighs. 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 cloth picker both scripts 02/02/14 400 g 10 [...] PM EST Office Visit [place] [phone] Paula Harris PA [facility] [place] [address] 01/26/2025 9:50 AM EDT Appointment Mammography/[place] [phone] Joan Deutsch [facility] [place] [address] 01/26/2025 10:50 AM EDT Office Visit [place] [phone] Joan Deutsch [facility] [place] [address] Pending Results Name Type Priority Associated Diagnoses Date /Time FILM LIBRARY-FLUORO OR [id number] ONL Imaging Routine 07/11/2015 7:1 8 PM EDT documented as of this encounter Visit Diagnoses Not on filedocumented in this encounter Care Teams Bench Inspector Relationship Specialty Start Date End Date Mariluz Watts MD [address] [place] [address] [address] [place] [address] PCP - General 08/22/10 documented as of this encounter
--- OUTSIDE RECORDS SUMMARY | 2024-05-18 19:58 | XMS_ITS | Encounter Summary ---
Author Organization [facility] [place] [address] Care Team Providers Care Copy And Print Associate Name Role Phone Mariluz Watts MD Primary Care Provider [phone] Encounter Details Date Type Department Care Team (Latest Contact Info) Description 05/23/2016 9:53 AM EDT - 05/23/2016 11:59 PM EDT Hospital Encounter XRay at [address] [place] [address] Morgan Kong MD [facility] [place] [address] Right foot pain Discharge Disposition: Home Social [...] Refills Start Date End Date LACTOBAC CMB #[id number] ORAL Take 1 tablet by mouth daily. 12/24/2012 05/01/2018 Lysine 500 mg Tablet Take 1 tablet by mouth daily. Reported on 12/11/2016 05/01/2018 multivitamin (THERAGRAN) tablet Take 1 tablet by mouth daily. Reported on 12/11/2016 07/03/2018 ammonium lactate (LAC-HYDRIN) 12 % lotionIndications:SK (seborrheic keratosis) Apply topically as needed for Dry Skin. Use to rough spots on thighs. 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 hop picker both scripts 02/02/14 400 g 10 [...] PM EST Office [place] [phone] Paula Harris PA [facility] GENER[place] [address] 01/26/2025 9:50 AM EDT Appointment Mammography/[place] [address] Joan Deutsch APRN [facility] [place] [address] 01/26/2025 10:50 AM EDT Office [place] [phone] Joan Deutsch APRN [facility] [place] [address] documented as of this encounter Procedures Procedure Name Priority Date/Time Associated Diagnosis Comments XR FOOT MIN 3 VIEWS RIGHT Routine 05/23/2016 10:13 AM EDT Right foot pain documented in [...] limb documented in this encounter Care Teams Copy And Print Associate Relationship Specialty Start Date End Date Mariluz Watts MD [address] [place] [place] [address] [address] [place] [id number] PCP - General 08/22/10 documented as of this encounter
--- OUTSIDE RECORDS SUMMARY | 2024-05-18 19:58 | XMS_ITS | Encounter Summary ---
Author Organization [facility] [place] [address] Care Team Providers Care Correspondence Representative Name Role Phone Mariluz Watts MD Primary Care Provider Encounter Details Date Type Department Care Team (Late st Contact Info) Description 03/26/2017 1:30 PM EDT - 03/26/2017 2:30 PM EDT Surgery [place] [address] Gallito Lincoln MD [facility] [place] [address] COLONOSCOPY, POLYPECTOMY, REMOVAL LESION BY SNARE (WRVU [...] Sign Reading Time Taken Comments Blood Pressure 136/81 03/26/2017 2:30 PM EDT Pulse 72 03/26/2017 2:30 PM EDT Temperature - - Respiratory Rate 18 03/26/2017 2:30 PM EDT Oxygen Saturation 98% 03/26/2017 2:30 PM EDT Inhaled Oxygen Concentration - - Weight - - Height - - Body Mass Index - - documented in this encounter Medications at Time of Discharge Medication Sig Dispensed Refills Start Date End Date mirabegron (MYRBETRIQ) 50 mg Tablet Sustained Release 24 hr Take by mouth. 05/01/2018 ALPRAZolam (XANAX) 0.5 mg Tablet 12/07/2016 05/01/2018 [facility] CMB #[id number] ORAL Take 1 tablet by mouth daily. [...] as of this encounter H&P Notes * Gallito Lincoln MD - 03/26/2017 12:40 PM EDT Gastroenterology and Hepatology Pre-Procedure History and Physical Exam Procedure: Colonoscopy: Indication: h/o colon polyps Patient Active Problem List Diagnosis Code ??? 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 Diverticulosis K57.90 ??? Degenerative joint disease M19.90 ??? Breast cancer, stage 2 C50.919 ??? Rosacea L71.9 ??? 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 Arthritis of right foot M19.071 ??? 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 Hallux [...] PM EST Office Visit [place] [phone] Paula Harris PA [facility] [place] [address] 01/26/2025 9:50 AM EDT Appointment Mammography/[place] [phone] Joan Deutsch TERADATA ARCHITECT [facility] [place] [address] 01/26/2025 10:50 AM EDT Office Visit [place] [phone] Joan Deutsch APRN [facility] [place] [address] documented as of this encounter Procedures Procedure Name Priority Date/Time Associated Diagnosis Comments SURGICAL PATHOLOGY REPORT Routine 03/26/2017 2:11 PM EDT SPECIMEN TO PATHOLOGY Routine 03/26/2017 2:11 PM EDT SPECIMEN TO PATHOLOGY Routine 03/26/2017 2:11 PM EDT COLONOSCOPY, POLYPECTOMY, REMOVAL LESION BY SNARE (WRVU 4.57) 03/26/2017 1:15 PM EDT 5 yr surv from 02/29/12 PTS BLOOD DOES NOT CLOT COLONOSCOPY Routine 03/26/2017 12:20 PM EDT documented in this encounter Results * Surgical Pathology Report (03/26/2017 2:11 PM EDT) Final Diagnosis [id number] ?Location: 4T; EA07; A The signing pathologist has (i) examined the relevant preparation(s) for the specimen(s) and (ii) rendered or confirmed the diagnosis(es). . ?Surgical Pathology DIAGNOSIS A - Sigmoid colon, ??polypectomy: Polypoid fragment of granulation tissue. B - Rectum, ??villiform patch near hemorrhoid distal rectum, biopsy: Squamous and columnar junctional mucosa with papillary squamous proliferation and low grade squamous intraepithelial dysplasia, favor condyloma accuminata. Electronically signed by: ??Montse Bangura MD Verified: ??03/30/2017 ?Pathologist DISCUSSION Part B: The immunostains of p53 and p16 support the diagnosis. Case reviewed with Dr. Layla Lind, who concurs. ADDITIONAL STUDIES Immunohistochemistry Studies: Formalin-fixed, paraffin-embedded tissue sections are [...] and other diagnostic tests. Block ? Antibody ?? Result (Positive/Negative) B1,B2 ?p53,p16 ?staining patterns compatible with low grade dysplasia Whole slide scan: [id number] ?? B1-1 [id number] B 1-2 [id number] B 1-3 CLINICAL INFORMATION Specimen Submitted: A - 4 mm inflammatory type polyp in sigmoid tic B - Villiform patch near hemorrhoid distal rectum Clinical History: Patient with polyps Clinical Diagnosis: Same SPECIMEN PROCESSING A - Labeled/Fixative: 4 mm inflammatory-type polyp in sigmoid, formalin. Quantity/Size: Single, 0.4 cm. Tissue Description: ??Soft, castillo-pink tissue ??. Sections/Processing: (T1) B - Labeled/Fixative: Villiform patch near hemorrhoid distal rectum, formalin. Quantity/Size: Multiple, averaging 0.2 cm. . SPECIMEN PROCESSING Tissue Description: ??Soft, castillo-pink tissue ??. Sections/Processing: (T2) ??ejr 03/30/2017 1:11 PM EDT [facility] GI Biopsy 03/26/2017 2:11 PM EDT 03/26/2017 2:11 PM EDT GI Biopsy 03/26/2017 2:11 PM EDT 03/26/2017 2:11 PM EDT Gallito Lincoln MD PATHOLOGY/CYTOLOGY O RDERABLES Performing Organization Address City/State/[facility] [place] [address] * Specimen to Pathology (surgical or derm) (03/26/2017 2:11 PM EDT) AP Specimen 03/26/2017 2:11 PM EDT 03/26/2017 2:11 PM EDT Narrative [facility] - 03/26/2017 2:11 PM EDT Specimen requisition ordered. ??Separate Pathology report to follow Gallito Lincoln MD PATHOLOGY/CYTOLOGY O JOSELUIS Performing Organization Address [facility] [place] [address] * Specimen to Pathology (surgical or derm) (03/26/2017 2:11 PM EDT) AP Specimen 03/26/2017 2:11 PM EDT 03/26/2017 2:11 PM EDT Narrative [facility] - 03/26/2017 2:11 PM EDT Specimen requisition ordered. ??Separate Pathology report to follow Gallito Lincoln MD PATHOLOGY/CYTOLOGY O JOSELUIS Performing Organization Address [facility] [place] [address] * COLONOSCOPY (03/26/2017 12:20 PM EDT) COLONOSCOPY [facility] Procedure Date: 03/26/2017 12:20 PM ? Patient Name: Diamond Gaming ? Date of : 1945 ? Age: 71 ? Order #: [id number] ? Instrument Name: [id number] ? Procedure: ? Colonoscopy Indications: ? Follow-up for history of adenomatous ? polyps in the colon Providers: ? Gallito Lincoln MD, Niru Chavez, ? [place], Tania Salvador MD: ?Mariluz Watts MD Medicines: ? Midazolam 5 mg IV, Fentanyl 250 ? micrograms IV Complications: ? No immediate complications. Procedure: ? The procedure, indications, benefits, ? risks and alternatives were explained ? to the patient. Specifically ? discussed were potential ? complications including, but not ? limited to, bleeding, perforation, ? infection, missing a cancer, and ? adverse medication reactions. The ? patient was placed in the left ? lateral decubitus position, and a ? digital rectal exam was performed. ? The Colonoscope was inserted in the ? anus and under direct visualization, ? advanced to the cecum, identified by ? appendiceal orifice and ileocecal ? valve. Careful inspection was made as ? the colonoscope was withdrawn. The ? colonoscopy was performed without ? difficulty. The patient tolerated the ? procedure well. The quality of the ? bowel preparation was evaluated using ? the BBPS ([place] Bowel Preparation ? Scale) with scores of: Right Colon = ? 3, Transverse Colon = 3 and Left ? Colon = 3 (entire mucosa seen well ? with no residual staining, small ? fragments of stool or opaque liquid). ? The total BBPS score equals 9. Scope ? withdrawal time was 14 minutes. ? Findings: ? The perianal and digital rectal examinations were ? normal. ? Multiple large-mouthed diverticula were found in the ? entire colon. ? A 4 mm polyp was found in the sigmoid colon. The ? polyp was semi-pedunculated. The polyp was removed ? with a cold snare. Resection and retrieval were ? complete. ? A 3 mm polyp was found in the rectum. The polyp was ? sessile with a villiform appearance, it abutted an ? internal hemorrhoid. The polyp was removed with a ? cold snare. Resection and retrieval were complete. ? Internal hemorrhoids were found during retroflexion. ? The hemorrhoids were medium-sized. ? Moderate Sedation: ? I was present during the intraservice time as ? documented by the sedation RN. Impression: ?- Diverticulosis in the entire ? examined colon. ? - One 4 mm polyp in the sigmoid ? colon, removed with a cold snare. ? Resected and retrieved. ? - One 3 mm polyp in the rectum, ? removed with a cold snare. Resected ? and retrieved. ? - Internal hemorrhoids. Recommendation: ?- Await pathology results. ? Attending Participation: ? I personally performed the entire procedure. ? _ Gallito Lincoln MD 03/26/2017 2:07:36 PM This report has been signed electronically. Number of Addenda: 0 Note Initiated On: 03/26/2017 12:20 PM PROVATION 03/26/2017 12:2 0 PM EDT Mariluz Watts MD GENERAL SURGICAL ORD ERABLES PROVATION documented in this encounter Visit Diagnoses Not on filedocumented in this encounter Administered Medications Inactive Administered Medications - up to 3 most recent administrations Medication Order MAR Action Action Date Dose Rate Site fentaNYL 50 mcg/mL multi-dose injection ONCE PRN, Starting on Sat03/26/17 at 1318, Until Sat03/26/17 at 1719, Intra-Operative (Intra-Procedure), Routine Given 03/26/2017 1:40 PM EDT 50 mcg Left Arm Given 03/26/2017 1:38 PM EDT 25 mcg Le ft Arm Given 03/26/2017 1:34 PM EDT 25 mcg Le ft Arm lactated Ringers infusion 100 mL/hr, Intravenous, CONTINUOUS, Starting on Sat03/26/17 at 1300, Until Sat03/26/17 at 1519, Endoscopy (Day of Procedure) New Bag 03/26/2017 1:00 PM EDT 100 mL/hr 100 mL/hr midazolam (PF) (VERSED) 1 mg/mL multi-dose injection ONCE PRN, Starting on Sat03/26/17 at 1318, Until Sat03/26/17 at 1719, Intra-Operative (Intra-Procedure), Routine Given 03/26/2017 1:38 PM EDT 0.5 mg Left Arm Given 03/26/2017 1:34 PM EDT 0.5 mg Le ft Arm Given 03/26/2017 1:31 PM EDT 1 mg Le ft Arm documented in this encounter Active and Recently Administered Medications Times are shown in EDT. Continuous Medication Order 03/24/2017 03/25/2017 03/26/2017 lactated Ringers infusion (CANCELED) 100 mL/hr, Intravenous, CONTINUOUS, Starting on Sat03/26/17 at 1300, Until Sat03/26/17 at 1519, Endoscopy (Day of Procedure) 1300 (New Bag - Prov ider: Charity Ashby RN) PRN Medication Order 03/24/2017 03/25/2017 03/26/2017 fentaNYL 50 mcg/mL multi-dose injection (CANCELED) ONCE PRN, Starting on Sat03/26/17 at 1318, Until Sat03/26/17 at 1719, Intra-Operative (Intra-Procedure), Routine 1318 (Given - Provid er: Niru Chavez RN)1321 (Given - Provider: Niru Chavez RN)1326 (Given - Provider: Niru Chavez RN)1334 (Given - Provider: Niru Chavez RN)1338 (Given - Provider: Niru Chavez RN)1340 (Given - Provider: Niru Chavez RN) midazolam (PF) (VERSED) 1 mg/mL multi-dose injection (CANCELED) ONCE PRN, Starting on Sat03/26/17 at 1318, Until Sat03/26/17 at 1719, Intra-Operative (Intra-Procedure), Routine 1318 (Given - Provid er: Niru Chavez RN)1321 (Given - Provider: Niru Chavez RN)1326 (Given - Provider: Niru Chavez RN)1331 (Given - Provider: Niru Chavez RN)1334 (Given - Provider: Niru Chavez RN)1338 (Given - Provider: Niru Chavez RN) documented in this encounter Care Teams Correspondence Representative Relationship Specialty Start Date End Date Mariluz Watts MD [address] [place] [address] PCP - General 08/22/10 documented as of this encounter
--- OUTSIDE RECORDS SUMMARY | 2024-05-18 19:58 | XMS_ITS | Encounter Summary ---
[facility] Organization [facility] [place] [address] Care Team Providers Care Pot Builder Name Role Phone Mariluz Watts MD Primary Care Provider [phone] Encounter Details Date Type Department Care Team (Latest Contact Info) Description 03/26/2017 12:26 PM EDT - 03/26/2017 3:19 PM EDT Hospital [place] [address] Gallito Lincoln MD [facility] [place] [address] Discharge Disposition: Home Social History Tobacco Use [...] Sign Reading Time Taken Comments Blood Pressure 140/81 03/26/2017 2:45 PM EDT Pulse 80 03/26/2017 2:45 PM EDT Temperature - - Respiratory Rate 19 03/26/2017 2:45 PM EDT Oxygen Saturation 99% 03/26/2017 2:45 PM EDT Inhaled Oxygen Concentration - - Weight - - Height - - Body Mass Index - - documented in this encounter Medications at Time of Discharge Medication Sig Dispensed Refills Start Date End Date mirabegron (MYRBETRIQ) 50 mg Tablet Sustained Release 24 hr Take by mouth. 05/01/2018 ALPRAZolam (XANAX) 0.5 mg Tablet 12/07/2016 05/01/2018 [id number] ORAL Take 1 tablet by mouth daily. 12/24/2012 05/01/2018 Lysine 500 mg Tablet Take 1 tablet by mouth daily. Reported on 12/11/2016 05/01/2018 multivitamin (THERAGRAN) tablet Take 1 tablet by mouth daily. Reported on 12/11/2016 07/03/2018 ammonium lactate (LAC-HYDRIN) 12 % lotionIndications:SK (seborrheic keratosis) Apply topically as needed for Dry Skin. Use to rough spots on thighs. 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 sweet pickle maker both scripts 02/02/14 400 g 10 02/01/2014 [...] PM EST Office [place] [address] Paula Harris PA [facility] [place] [address] 01/26/2025 9:50 AM EDT Appointment Mammography/[place] [phone] Joan Deutsch APRN [facility] [place] [address] 01/26/2025 10:50 AM EDT Office Visit General Surgery at [facility] [place] [phone] Joan Deutsch APRN [facility] [place] [address] documented as of this encounter Procedures Procedure [...] Report (03/26/2017 2:11 PM EDT) Final Diagnosis [id number] ?Location: 4T; EA07; A The signing pathologist [...] with low grade dysplasia Whole slide scan: [id number] ?? B1-1 [id number] B 1-2 [id number] B 1-3 CLINICAL INFORMATION Specimen Submitted: A [...] Sections/Processing: (T2) ??ejr 03/30/2017 1:11 PM EDT [facility] GI Biopsy 03/26/2017 2:11 PM EDT 03/26/2017 2:11 PM EDT GI Biopsy 03/26/2017 2:11 PM EDT 03/26/2017 2:11 PM EDT Gallito Lincoln MD PATHOLOGY/[place] [address] * Specimen to Pathology (surgical or derm) (03/26/2017 2:11 PM EDT) AP Specimen 03/26/2017 2:11 PM EDT 03/26/2017 2:11 PM EDT Narrative [facility] - 03/26/2017 2:11 PM EDT Specimen requisition ordered. ??Separate Pathology report to follow Gallito Lincoln MD PATHOLOGY/CYTOLOGY [place] Performing Organization Address [facility] [place] [place] [address] * Specimen to Pathology (surgical or derm) (03/26/2017 2:11 PM EDT) AP Specimen 03/26/2017 2:11 PM EDT 03/26/2017 2:11 PM EDT Narrative [facility] - 03/26/2017 2:11 PM EDT Specimen requisition ordered. ??Separate Pathology report to follow Gallito Lincoln MD PATHOLOGY/CYTOLOGY [place] Performing Organization Address [facility] [place] [place] [address] * COLONOSCOPY (03/26/2017 12:20 PM EDT) COLONOSCOPY [facility] Endoscopy Procedure Date: 03/26/2017 12:20 PM ? Patient Name: Diamond Gaming ? Date of : 1945 ? Age: 71 ? Order #: [id number] ? Instrument Name: [id number] ? Procedure: ? Colonoscopy Indications: ? Follow-up for history of adenomatous ? polyps in the colon Providers: ? Gallito Lincoln MD, Niru Chavez, ? RN, Tania Salvador MD: ?Mariluz Watts MD Medicines: [...] preparation was evaluated using ? the BBPS ([place] Bowel Preparation ? Scale) with scores of: [...] 1:00 PM EDT 100 mL/hr 100 mL/hr documented in this [...] Niru Chavez RN)1334 (Given - Provider: Niru Chavez, RN)1338 (Given - Provider: Niru Chavez, [place])1340 (Given - Provider: Niru Chavez RN) midazolam (PF) (VERSED) 1 mg/mL multi-dose injection (CANCELED) ONCE PRN, Starting on Sat03/26/17 at 1318, Until Sat03/26/17 at 1719, Intra-Operative (Intra-Procedure), Routine 1318 (Given - Provid er: Niru Chavez, [place])1321 (Given - Provider: Niru Chavez RN)1326 (Given - Provider: Niru Chavez RN)1331 (Given - Provider: Niru Chavez RN)1334 (Given - Provider: Niru Chavez RN)1338 (Given - Provider: Niru Chavez RN) documented in this encounter Care Teams Pot Builder Relationship Specialty Start Date End Date Mariluz Watts MD [address] [place] [address] PCP - General 08/22/10 documented as of this encounter
--- OUTSIDE RECORDS SUMMARY | 2024-05-18 19:58 | XMS_ITS | Encounter Summary ---
Author Organization [facility] [place] [address] Care Team Providers Care Roller Mechanic Name Role Phone Mariluz Watts MD Primary Care Provider [phone] Encounter Details Date Type Department Care Team (Latest Contact Info) Description 09/14/2015 10:12 AM EST - 09/14/2015 11:59 PM [facility] Hospital Encounter [place] [address] Kami Bowman MD [facility] [place] [address] Nephrolithiasis Discharge Disposition: Home Social History Tobacco Use [...] Refills Start Date End Date LACTOBAC CMB #[id number] ORAL Take 1 tablet by mouth daily. [...] to rough spots on thighs. 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 roll picker both scripts 02/02/14 400 g 10 [...] PM EST Office Visit [place] [phone] Paula Harris PA [facility] [place] [address] 01/26/2025 9:50 AM EDT Appointment Mammography/[place] [phone] Joan Duetsch APRN [facility] [place] [address] 01/26/2025 10:50 AM EDT Office Visit [place] [phone] Joan Deutsch APRN [facility] [place] [address] documented as of this encounter Procedures Procedure Name Priority Date/Time Associated Diagnosis Comments US RETROPERITONEAL COMPLETE Routine 09/14/2015 10:53 AM EST Nephrolithiasis documented in this encounter Results * US [...] 11:02 am) Patient Info ID #: ? [id number] ?: ??[birth year] (69 yrs) Name: ? DIAMOND GAMING ? Visit Date: 09/14/2015 10:43 am Performed By Performed By: ? Abel JOSE, ??Christine Attending: ?Bella Dowling MD Associate: ?Ramon STEINER, [facility] Referred By: ?KAMI BOWMAN MD Service(s) Provided ??URETRO - Retroperitoneal Complete - [id number] ? [id number] Indications ??s/p left ureteroscopy/stent, r/o residual hydro [...] 09/14/2015 11:02 am) Patient Info ID #: [id number] : [birth year] (69 yrs) Name: DIAMOND GAMING Visit Date: 09/14/2015 10:43 am Performed By Performed By: Christine Roman RDMS Attending: Bella Dowling MD Associate: Ramon STEINER [facility] Referred By: KAMI BOWMAN MD Service(s) Provided URETRO - Retroperitoneal Complete - [id number] Indications s/p left ureteroscopy/stent, r/o residual hydro [...] Bowman MD IMG US GEN ORDERAB LES documented in this encounter Visit Diagnoses Diagnosis Nephrolithiasis Calculus of kidney documented in this encounter Care Teams Roller Mechanic Relationship Specialty Start Date End Date Mariluz Watts MD [address] [facility] [address] [place] [address] PCP - General 08/22/10 documented as of this encounter
--- OUTSIDE RECORDS SUMMARY | 2024-05-18 19:59 | XMS_ITS | Encounter Summary ---
Author Organization [facility] [place] [address] Care Team Providers Care Canopy Stringer Name Role Phone Mariluz Watts MD Primary Care Provider [phone] Reason for Visit * Reason Comments Right Foot Pain ? scheduling surgery Encounter Details Date Type Department Care Team (Late st Contact Info) Description 08/12/2013 1:15 PM EST [place] [address] Morgan Kong MD [facility] [place] [address] Arthritis of right foot (Primary Dx) Discharge Disposition: Home Social History [...] Sign Reading Time Taken Comments Blood Pressure 134/77 08/12/2013 1:24 PM EST Pulse 86 08/12/2013 1:24 PM EST Temperature 36.9 ??C (98.4 ??F) 08/12/2013 1:24 PM ES T Respiratory Rate - - Oxygen Saturation - - Inhaled Oxygen Concentration - - Weight - - Height - - Body Mass Index - - documented in this encounter Progress Notes * Morgan Kong MD - 08/12/2013 3:52 PM EST SUBJECTIVE: Ms. Gaming returns today. She had fluoroscopically guided injection into her right navicular cuneiform joint by Dr. Brito. Unfortunately, she had minimal relief from this intervention. She continues to have midfoot pain all the way across the TMT joints. She is using ibuprofen 600 mg p.o. q.i.d. She has seen one of the rheumatologists here at [facility] [place] [facility] [place] and has been on Plaquenil and is currently on prednisone. She finds that the prednisone actually makes her foot feel better. She has had a recent sinus infection and arrives today wearing mask in the office, otherwise her health has not changed significantly. OBJECTIVE: She continues to have tender prominence medially at the navicular cuneiform articulation as well as dorsal prominence and tenderness in her fifth metatarsal head, a bunionette, is a bit more prominent and has become painful over the summer time. She has pair of Seun low-cut walking shoes on today, but has been wearing sneakers through the warmer months. She has 1+ pulses. There is no distal sensory compromise. There is full motor function. Reviewed radiographs as well as her MRI scan. There are films captured from the injection performed with Dr. Brito, which clearly showed the needle in the navicular cuneiform joint, which is where we are trying to go and where this patient has significant arthritic pain. MRI scan confirmed findings of arthritis in this location as well as the across the TMT joints. 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 PLAN: I have discussed the situation at length with the patient. I have told her that when she wants to have surgery, she certainly has enough changes in her foot to proceed. She, however, must understand that the surgery will require three months of immobilization and six weeks of nonweightbearing. Additionally, she would be unable to drive if her right foot is involved. She understands. She is going to hold off on her decision for surgery. I have given her the card for our surgical schedule and she will contact us when and if she is ready to proceed. documented in this encounter Plan of Treatment Upcoming Encounters Date Type Department Care Team (Late st Contact Info) Description 11/16/2024 1:00 PM EST Office [place] [address] Paula Harris PA [facility] [place] [address] 01/26/2025 9:50 AM EDT Appointment Mammography/DXA at [place] [phone] Joan Deutsch [facility] [place] [address] 01/26/2025 10:50 AM EDT Office Visit General Surgery at [place] [phone] Joan Deutsch [facility] [place] [address] documented as of this encounter Visit Diagnoses Diagnosis Arthritis of right foot- Primary Unspecified arthropathy, ankle and foot documented in this encounter Care Teams Canopy Stringer Relationship Specialty Start Date End Date Mariluz Watts MD [address] [facility] 1 [place] [address] PCP - General 08/22/10 documented as of this encounter
--- OUTSIDE RECORDS SUMMARY | 2024-05-18 19:59 | XMS_ITS | Encounter Summary ---
Author Organization [facility] [place] [address] Care Team Providers Care Slide Forming Machine Operator Name Role Phone Mariluz Watts MD Primary Care Provider [phone] Encounter Details Date Type Department Care Team (Late st Contact Info) Description 12/21/2014 1:49 PM EDT - 12/21/2014 2:52 PM EDT Hospital Encounter XRay at [address] [place] [address] Osteopenia Social History Tobacco Use Types Packs/Day [...] Refills Start Date End Date LACTOBAC CMB #[id number] ORAL Take 1 tablet by mouth daily. 12/24/2012 05/01/2018 clarithromycin (BIAXIN) 500 mg Tablet Twice a day 12/15/201204/24 anastrozole (ARIMIDEX) 1 mg TabletIndications:Kimberly schmidt cancer, stage 2, right Take 1 tablet by mouth nightly. 90 tablet 3 07/02/2014 06/28/2015 omeprazole (PRILOSEC) 10 mg capsule Take 10 mg by mouth daily. 05/16/2016 multivitamin (THERAGRAN) tablet Take 1 tablet by mouth daily. Reported on 12/11/2016 07/03/2018 ammonium lactate (LAC-HYDRIN) 12 % lotionIndications:SK (seborrheic keratosis) Apply topically as needed for Dry Skin. Use to rough spots on thighs. 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 crab picker both scripts 02/02/14 400 g 10 02/01/2014 05/01/2018 metroNIDAZOLE (METROGEL) 1 % gelIndications:Rosacea Apply topically daily. 45 g 10 02/01/2014 05/01/2018 predniSONE (DELTASONE) 10 mg tablet Take 1 tablet by mouth daily. Please mail. 30 tablet 3 08/19/2013 06/28/2015 amoxicillin-clavulanat e (AUGMENTIN) 500-125 mg per tablet [...] PM EST Office [place] [address] Paula Harris PA [facility] [place] [address] 01/26/2025 9:50 AM EDT Appointment Mammography/[place] [address] Kovatch, Joan L, [facility] [place] [address] 01/26/2025 10:50 AM EDT Office Visit General Surgery at [facility] [place] [address] Joan Deutsch [facility] [place] [address] documented as of this encounter Procedures Procedure Name Priority Date/Time Associated Diagnosis Comments DXA CENTRAL SPINE, HIP, AND/OR WHOLE BODY (GENERIC) Routine 12/21/2014 2:59 PM EDT documented in this encounter Results * Dexa central-spine, hip, and/or whole body (12/21/2014 2:59 PM EDT) Anatomical Region Laterality Modality C-spine, Hip N/A Radiographic Crystal ging 12/21/2014 2:59 PM EDT Impressions 12/24/2014 9:38 AM EDT IMPRESSION: The measurements fulfill the WHO classification for low bone mass or osteopenia and they are decreasing since 2013. The rate of loss is 4% decrease over 2 years. The fracture risks are increased. Estimating Fracture Risk: ? The relationship between [...] which you are encouraged to review. ? DEXA data sheets with BMD measurements and plots are available in [employer] under the imaging tab. Paper copies will be sent to providers without [employer] access. If you have received this report without the data sheet and do not have access to [employer], please contact Radiology Rough Rib Grader at [phone] Saturday thru Saturday 8am-4pm. Narrative 12/24/2014 9:38 AM EDT EXAMINATION: DXA CENTRAL-SPINE,HIP, AND/OR WHOLE BODY CLINICAL HISTORY: 69 year old woman with osteopenia on anastrozole TECHNIQUE: Scans were acquired at the lumbar spine, ?and left forearm. FINDINGS: Lowest T-score at the diagnostic region of interest: T-score: -1.8, ROMÁN: Distal 1/3 radius, WHO diagnosis: low bone mass or osteopenia. ......... Comparison......... Previous scan: 2012, Baseline scan: 2007 Distal 1/3 radius : Compared to the most recent/ baseline scan, 4% decrease. Total spine: Compared to the most recent scan,3% decrease Compared to the baseline scan, 3% decrease Procedure Note Marly Torres MD - 12/24/2014 EXAMINATION: DXA CENTRAL-SPINE,HIP, AND/OR WHOLE BODY CLINICAL HISTORY: 69 year old woman with osteopenia on anastrozole TECHNIQUE: Scans were acquired at the lumbar spine, and leftforearm. FINDINGS: Lowest T-score at the diagnostic region of interest: T-score: -1.8, ROMÁN: Distal 1/3 radius, WHO diagnosis: low bone mass or osteopenia. ......... Comparison......... Previous scan: 2012, Baseline scan: 2007 Distal 1/3 radius : Compared to the most recent/ baseline scan, 4% decrease. Total spine: Compared to the most recent scan,3% decrease Compared to the baseline scan, 3% decrease IMPRESSION IMPRESSION: The measurements fulfill the WHO classification for low bone mass orosteopenia and they are decreasing since 2012. The rate of loss is 4% decrease over2 years. The fracture risks are increased. Estimating Fracture Risk: ? The relationship between [...] which you are encouraged to review. ? DEXA data sheets with BMD measurements and plots are available in [employer] the imaging tab. Paper copies will be sent to providers without [employer] access.If you have received this report without the data sheet and do not haveaccess to [employer], please contact Radiology Rough Rib Grader at [phone] Saturday thrrid 8am-4pm. Abrahan Merlos MD IMG DEXA ORDERABLES documented in this encounter Visit Diagnoses Diagnosis Osteopenia Disorder of bone and cartilage, unspecified documented in this encounter Care Teams Slide Forming Machine Operator Relationship Specialty Start Date End Date Mariluz Watts MD [address] [facility] 1 [place] [address] PCP - General 08/22/10 documented as of this encounter
--- OUTSIDE RECORDS SUMMARY | 2024-05-18 19:59 | XMS_ITS | Encounter Summary ---
Author Organization [facility] [place] [address] Care Team Providers Care Jig Hand Name Role Phone Mariluz Watts MD Primary Care Provider [phone] Reason for Visit * Reason Comments Nephrolithiasis * Auth/Cert Specialty Diagnoses / Procedures Referred By John lyons Referred To Contact Diagnoses Pain Procedures CYSTO, STENT PLACEMENT Referral ID Status Reason Start Date Expiration Date Visits Re quested Visits Authorized [id number] 1 1 Encounter Details Date Type Department Care Team (Late st Contact Info) Description 07/11/2015 5:00 PM EDT - 07/11/2015 6:20 PM EDT Surgery [place] [address] Stephen Chauhan III, MD [facility] [place] [address] CYSTO, STENT PLACEMENT (WRVU 2.82) Social History Tobacco Use Types Packs/Day Years [...] epi, into skin and subcutaneous tissues (CPT [id number]) left total hip arthroplasty, anterior Hueter approach with Mckenna table (CPT code 25120) Left hip intraoperative radiologic examination (CPT code 40641) Amicar infusion (5 g IV load, then 1g/hr x 3 hrs) Components Used: Nicole Accolade stem, size 4, 127 degrees Trident PSLcup, 52 mm, solid 32 mm ID, alumina 32-4 mm alumina head ??? Hip pain ??? S/P Right ARSLAN 03/06/2005 ([facility]) SURGERY DATE: 03/06/2005 ARCADIO STEINER, NICK Angel Surgical Procedure Performed: Right total hip arthroplasty, cementless, [id number]-[id number] Components Used: Nicole Trident 52 shell outer [...] the past, who presents in transfer from [facility] with a 3-4 mm mid [...] which prompted her to present to the [facility] ED early this morning. There, [...] Hospital Course: Ms. Gaming was admitted to [facility] 07/11/15. A stent was placed in her Left ureter the same day. She received IV antibiotics for 2 days and when her urine culture results from [facility] returned she was transitioned to a course of oral antibiotics. Her blood cultures were negative. Overall she progressed asexpected and was discharged home on hospital day 3. Important Studies and Lab Data: Labs: Recent Labs 07/13/1521407/12/15 0303 07/11/15 1500 WBC 12.6* 13.2* 14.3* HGB 11.7 [...] to rough spots on thighs. 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 picket labor union both scripts 02/02/14 Quantity: 400 g Refills: [...] pain medications The number for questions is [phone] before 5 PM weekdays and [phone] after 5 PM and weekends. Activity level: [...] stent removal in the office. Please call [phone] if you do not receive your appointment. [...] Discharge References/Attachments: Discharge References/Attachments KIDNEY STONE DIET (TAMAZIGHT) Electronically Signed By: HARSHA VENTURA MD 07/13/2015 documented in this encounter Discharge Instructions * Patient Instructions* Harsha Ventura MD - 07/12/2015 12:13 PM EDT Call your doctor for: ??? fevers greater than 101 ??? severe nausea or vomiting ??? increasing pain not controlled by pain medications The number for questions is [phone] before 5 PM weekdays and [phone] after 5 PM and weekends. Activity level: [...] stent removal in the office. Please call [phone] if you do not receive your appointment. [...] through Care Everywhere. * KIDNEY STONE DIET (TAMAZIGHT) documented in this encounter Medications at Time of Discharge Medication Sig Dispensed Refills Start Date End Date LACTOBAC CMB #[id number] ORAL Take 1 tablet by mouth daily. [...] to rough spots on thighs. 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 picket labor union both scripts 02/02/14 400 g 10 02/01/2014 [...] team. No discharge needs identified atthis time. Technical Sales Director remains available as needed for coordination of [...] with a PMH of nephrolithiasis transferred to [facility] with a 3-4mm L ureteral stone, mild [...] code, floor status, anticipate discharge home soon. AHRSHA VENTURA MD 07/12/2015 * Julieta Montgomery RN - 07/11/2015 9:40 PM EDT Report rec'd from [facility] in PACU. Pt transferred to unit and [...] the past, who presents in transfer from [facility] with a 3-4 mm mid [...] which prompted her to present to the [facility] ED early this morning. There, [...] Procedure Date: 08/18/2006 ??? Created by interface [id number] Procedure Date: 01/27/2007 ??? Created by interface [...] >4.0CM, TRUNK performed by TIRSO CHAUDHARI at [facility] MAIN OR ??? Pro colonoscopy, diagnostic 02/29/2012 COLONOSCOPY, DIAGNOSTIC performed by RAJAT KUO at [facility] ENDOSCOPY ??? Pro total hip arthroplasty 07/22/2012 @TOTAL HIP ARTHROPLASTY, ANTERIOR APPROACH performed by NICK ERVIN at [facility] MAIN OR Social History History Social History [...] 159 Cultures: Blood and urine cultures at [facility] and [facility] pending Imaging: CT abd/pelvis 07/11/2015: 3-4 mm mid left ureteral stone with associated mild hydronephrosis Bilateral duarte-nephric stranding Assessment: iDamond Gaming is a 69 y.o. female with [...] a 69 y.o. female who presents to [facility] with infected obstructing L renal stone. History [...] HPI 69-year-old female presents in transfer from [facility] with left-sided nephrolithiasis and transient [...] She is not a diabetic. Presented to [facility] CT scan of the abdomen [...] further management. Devaughn Muhammad DO Resident 07/11/15 2321 * Marily Lomeli RN - 07/11/2015 3:31 [...] needed. Supervision: Pt independent in room. Surveillance: Fan; purposeful rounding CPG GOAL OUTCOME EVALUATION: Goal: [...] strengths integrated Goal: Discharge Needs Assessment 07/12/15 0701 07/12/15 2224 Self-Care Equipment Currently Used at Home [...] Outcome: Ongoing (Interventions Implemented as Appropriate) 07/12/15 0701 07/12/154 Self-Care Equipment Currently Used at Home cane, [...] (SBA) Positioning independent Goal: Infection Control 07/12/15 0800 Safety Interventions Infection Prevention rest/sleep promoted Coping/Psychosocial Response Interventions Counseling personal strengths integrated Goal: Discharge Needs Assessment 07/12/15 07 Self-Care Equipment Currently Used at Home cane, straight CRC assigned to help with discharge planning. * Initial Assessments - Solitario Meyers RN - 07/12/2015 11:07 AM EDT Office of Care Management (OCM) / Technical Sales Director(CM)/ Initial Assessment Discussed patient with Provider Team and in multidisciplinary discharge-planning rounds. Reviewed record and interviewed patient. Introduced/reviewed CM role and services accepted. REASON for HOSPITALIZATION: Ms. Gaming is a 69 yo WF with a PMH of nephrolithiasis transferred to [facility] with a 3-4mm L ureteral stone, mild hydronephrosis, positive UA, and questionable urosepsisI. IVF, IV Zosyn q8, flomax, oxycodone, flagyl/lac-hydrin bid topical, nexium, celexa, bowel meds, Vit D3,I&O, PMH See H&P PREVIOUS FUNCTIONAL STATUS: Independent CURRENT FUNCTIONAL STATUS:Bedrest, OON chair/ambulate w staff SOCIAL / FAMILY SUPPORTS:, 69 year old female residing in [place], [place] and lists Deidra Renée and Willy Gaming as her contacts . ADVANCE DIRECTIVES: On file. Deidra is the primary and sole agent. HEALTH /PRESCRIPTION COVERAGE:Medicare A/B, [employer] with prescription coverage with co-pays. CURRENT HOME/COMMUNITY SERVICES/EQUIPMENT: DME:None Home Health Agency:None Other:None SPECIALTY SALES CONSULTANT REFERRAL: To be determined. PRIMARY CARE PHYSICIAN: MARILUZ WATTS MD (General) [phone] [place] [address] POTENTIAL DISCHARGE NEEDS: ?VNA PATIENT/FAMILY EDUCATION NEEDS: [...] christensen appropriately, Post-op bed alarm activated Surveillance: Anna Chaviraful rounding CPG GOAL OUTCOME EVALUATION: Goal: Fall [...] Control Outcome: Ongoing (Interventions Implemented as Appropriate) 07/11/15 2142 Safety Interventions Infection Prevention rest/sleep promoted Coping/Psychosocial [...] Ongoing (Interventions Implemented as Appropriate) 07/12/15 0355 Urine Elimination, Impaired (Adult, Obstetrics) Effective Urinary Elimination making progress toward outcome Goal: Effective Containment of Urine 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 demonstrate the desired outcomes. Outcome: Ongoing (Interventions Implemented as Appropriate) 07/12/15 0355 Urine Elimination, Impaired (Adult, Obstetrics) Effective Containment of Urine making progress toward outcome * Op Note - Jennifer Suresh MD - 07/11/2015 6:34 PM EDT Operative Note Patient Name: Diamond Gaming : [id number] MR#: [id number] Case Date: 07/11/2015 Surgeon: Surgeon(s) and Role: [...] condition. Jennifer Suresh MD Urology PGY-2 Pager: [phone] Associated attestation - Stephen Chauhan III, MD - 07/14/2015 1:29 PM EDT Attestation: Case Date: 07/11/2015 I was present and I participated during the entire procedure (does not need to include opening and closing). Stephen Chauhan III, MD 07/14/2015 * Brief Op Note - Jennifer Suresh MD - 07/11/2015 6:31 PM EDT Brief Operative Note Patient Name: Diamond Gaming : [id number] MR#: [id number] Case Date: 07/11/2015 Surgeon: Surgeon(s) and Role: [...] 1:59 PM EDT Arrived via EMS from [facility] due to Lt obstructed renal [...] PM EST Office Visit [place] [phone] Paula Harris PA [facility] [place] [address] 01/26/2025 9:50 AM EDT Appointment Mammography/[place] [phone] Joan Deutsch APRN [facility] [place] [address] 01/26/2025 10:50 AM EDT Office Visit [place] [phone] Joan Deutsch SECURITY DEVELOPER [facility] [place] [address] Pending Results Name Type Priority Associated Diagnoses Date /Time FILM LIBRARY-FLUORO OR [id number] ONL Imaging Routine 07/11/2015 7:1 8 PM EDT Scheduled Orders Name Type Priority Associated Diagnoses Orde r Schedule FILM LIBRARY-FLUORO OR [id number] ONL Imaging Routine Once PRN (f or Radiant use) for 1 Occurrences starting 07/11/2015 until 07/11/2015 documented as of this encounter Procedures Procedure Name Priority Date/Time Associated Diagnosis Comments IMPLANTABLE DEVICES SCAN 015 12:00 AM EDT KNITTING SUPERVISOR SCAN 07/14/2015 12:00 AM EDT HEMOGRAM Routine [...] SCAN EXT O RDR/RSLT * SCAN DOC: KNITTING SUPERVISOR (07/14/2015 12:00 AM EDT) Anatomical Region Laterality [...] Lab Stephen Chauhan III, MD HEMATOLOGY ORDERA LIANA Performing Organization Address [facility] Co de Phone Number CERNER MANISHAENNIUM * (ABNORMAL) Hemogram (07/13/2015 2:15 AM EDT) [...] MD HEMATOLOGY ORDERA BLEDenisa Performing Organization Address [facility]/ZIP Co de Phone Number CERNER MANISHAENNIUM * Basic Metabolic Panel (non-fasting) (07/13/2015 2:15 AM EDT) Glucose 100 65 - 199 mg/dL CERNER MILLENNIUM Comment:Diabetes: >=200 mg/d L plus symptoms Blood Urea Nitrogen 15 8 - 18 mg/dL CERNER MILLENNIUM Creatinine 0.83 0.70 - 1.20 mg/dL CERNER MILLENNIUM Comment: Please note that the pediatric reference intervals supplied above were not validated at [facility]. Results from pediatric patients should be interpreted [...] the following links into your internet browser. [email or web address]://[employer]/DHnkdep [email or web address]/DHnkf Blood specimen (specimen) 07/13/2015 2:15 AM EDT 07/13/2015 2:43 AM EDT Narrative Resulting Agency Comment Spec In Lab Stephen Chauhan III, MD CHEMISTRY ORDERAB LES CERNER MILLENNIUM * (ABNORMAL) Differential, Automated (07/12/2015 3:03 AM [...] Stephen Chauhan III, MD HEMATOLOGY ORDERA BLES CERRIGO DYERENNIUM * (ABNORMAL) Hemogram (07/12/2015 3:03 AM EDT) [...] Chauhan III, MD HEMATOLOGY ORDERA BLES CERNER MILLENNIUM * (ABNORMAL) Basic Metabolic Panel (non-fasting) (07/12/2015 3:03 AM EDT) Pathologist [facility] Glucose 120 65 - 199 mg/dL CERNER MILLENNIUM Comment:Diabetes: >=200 mg/d L plus symptoms Blood Urea Nitrogen 11 8 - 18 mg/dL CERNER MILLENNIUM Creatinine 0.55(L) 0.70 - 1.20 mg/dL CERNER MILLENNIUM Comment: Please note that the pediatric reference intervals supplied above were not validated at [facility]. Results from pediatric patients should be interpreted [...] MILLENNIUM Calcium 8.5 8.5 - 10.5 mg/dL CERNER MILLENNIUM Est [...] the following links into your internet browser. http://[employer]/DHnkdep http://[employer]/DHMCnkf Blood specimen (specimen) 07/12/2015 3:03 AM EDT 07/12/2015 3:17 AM EDT Narrative Resulting Agency Comment Spec In Lab Stephen Chauhan III, MD CHEMISTRY ORDERAB LES Performing Organization Address [facility] de Phone Number VALERIE TOPETE * L-Lactate2 Whole Blood (07/11/2015 3:33 PM EDT) Lactate WB 1.6 mmol/L VALERIE TOPETE Blood specimen (specimen) 07/11/2015 3:33 PM EDT 07/11/2015 3:33 PM EDT Emergency Dept CHEMISTRY ORDERABLE S Performing Organization Address [facility] Phone Number VALERIE TOPETE * Red Hold (07/11/2015 3:00 PM EDT) Red Hold Sample in lab. VALERIE TOPETE Blood specimen (specimen) Venous Draw / Unknown 07/11/2015 3:00 PM EDT 07/11/2015 3:29 PM EDT Clarence Monet MD CHEMISTRY ORDERABLES Performing Organization Address [facility] Phone Number VALERIE TOPETE * Osborne Hold (07/11/2015 3:00 PM EDT) Osborne Hold Sample in lab. VALERIE TOPETE Blood specimen (specimen) Venous Draw / Unknown 07/11/2015 3:00 PM EDT 07/11/2015 3:29 PM EDT Clarence Monet MD CHEMISTRY ORDERABLES VALERIE MAYERIUM * Gold Tube HOLD (07/11/2015 3:00 PM EDT) Gold Hold Sample in lab. CERRIGO DYERENNIUM Blood specimen (specimen) Venous Draw / Unknown 07/11/2015 3:00 PM EDT 07/11/2015 3:30 PM EDT Clarence Monet MD CHEMISTRY ORDERABLES Performing Organization Address City/[facility]/ZIP Co de Phone Number VALERIE MAYERIUM * Blue Tube HOLD (07/11/2015 3:00 PM EDT) Blue Hold Sample in lab. VALERIE DYERENNIUM Blood specimen (specimen) Venous Draw / Unknown 07/11/2015 3:00 PM EDT 07/11/2015 3:28 PM EDT Clarence Monet MD HEMATOLOGY ORDERABLE S Performing Organization Address City/[facility] Co de Phone Number VALERIE MAYERIUM * (ABNORMAL) [...] MD HEMATOLOGY ORDERABLE S Performing Organization Address [facility] Co de Phone Number VALERIE TOPETE * (ABNORMAL) Creatinine (07/11/2015 3:00 PM EDT) Creatinine 0.57(L) 0.70 - 1.20 mg/dL [facility] MILLENNIUM Comment: Please note that the pediatric reference intervals supplied above were not validated at [facility]. Results from pediatric patients should be interpreted in conjunction to the patient's age, height and muscle mass. Est Glomerular Filtration Rate >60 >=60 [facility] MILLENNIUM Comment: This estimated GFR (eGFR) value [...] the following links into your internet browser. http://[employer]/DHnkdep http://[employer]/DHMCnkf Blood specimen (specimen) 07/11/2015 3:00 PM EDT 07/11/2015 3:27 PM EDT Narrative Resulting Agency Comment Spec In Lab Clarence Monet MD CHEMISTRY ORDERABLES Performing Organization Address [facility] de Phone Number VALERIE TOPETE * BUN (07/11/2015 3:00 PM EDT) Blood Urea Nitrogen 15 8 - 18 mg/dL [facility] Blood specimen (specimen) 07/11/2015 3:00 PM EDT 07/11/2015 3:27 PM EDT Narrative Resulting Agency Comment Spec In Lab Clarence Monet MD CHEMISTRY ORDERABLES Performing Organization Address [facility] Co de Phone Number VALERIE TOPETE * (ABNORMAL) Electrolytes panel (07/11/2015 3:00 PM [...] Monet MD CHEMISTRY ORDERABLES Performing Organization Address [facility] Co de Phone Number [facility] MILLENNIUM * Urine culture Clean Catch Urine (07/11/2015 2:00 PM EDT) Pathologist [facility] Urine Culture No growth (Less than 1,000 cfu/ml). CERNER MILLENNIUM Urine specimen obtained by clean catch procedure (specimen) 07/11/2015 2:00 PM EDT 07/11/2015 4:08 PM EDT Narrative Resulting Agency Comment Spec In Lab Clarence Monet MD MICROBIOLOGY - GENER AL ORDERABLES Performing Organization Address [facility] Co de Phone Number [facility] MILLENNIUM * (ABNORMAL) Urinalysis with reflex Culture (07/11/2015 [...] Urine Dipstick Clear Clear CERNER MILLENNIUM Specific Lynn Urine Automated 1.016 1.002 - 1.030 CERNER [...] In Lab Clarence Monet MD URINE ORDERABLES CERNER MILLENNIUM * Film Library- Storage Only CT Abdomen & Pelvis (07/11/2015 12:00 AM EDT) Narrative User, Generic Transmittal - 07/11/2015 3:39 PM EDT See PACS for result report. Stephen Chauhan III, MD [facility] FILM LIBRARY ORDERABLES documented in this encounter Visit Diagnoses Not on filedocumented in this encounter Administered Medications Inactive Administered Medications - up to 3 most recent administrations Medication Order MAR Action Action Date Dose Rate Site iohexol (OMNIPAQUE) 300 mg/mL solution ONCE PRN, Starting on Sat07/11/15 at 1850, Until Sat07/11/15 at 0, Intra-Operative (Intra-Procedure), Routine Given 07/11/2015 6:50 PM EDT 50 mLs 19- Surgical Site documented in this encounter Active and Recently [...] RN)2030 (Given - Provider: Deidra [place], [place]) 0219 (Given - Provider: Deidra [place], [place])0900 (Not Given - Provider: Kath Deluna RN - Reason: Patient/family refused) ammonium lactate (LAC-HYDRIN) 12 % lotion (CANCELED) Topical (Top), 2 TIMES DAILY, First dose on Sat07/11/15 at 2300, Until Discontinued 2300 (Not Given - Provider: Julieta Montgomery RN - Reason: Patient/family refused) 0940 (Given - Provider: Kath Deluna RN)2100 (Given - Provider: Deidra [place], [place]) 0936 (Given - Provider: Kath Deluna RN) cholecalciferol (Vitamin D3) tablet 1,000 Units (CANCELED) 1,000 Units, Oral, DAILY, First dose on Sat07/12/15 at 0900, Until Discontinued, Routine 0937 (Given - Provider: Kath Deluna RN) 0935 (Given - Provider: Kath Deluna RN) citalopram (CeleXA) tablet 20 mg (CANCELED) 20 mg, Oral, DAILY, First dose on Sat07/12/15 at 0900, Until Discontinued, Routine 0939 (Given - Provider: Kath Deluna RN) 0935 (Given - Provider: Kath Deluna RN) docusate sodium (COLACE) capsule 100 mg 100 mg, Oral, 2 TIMES DAILY, First dose on Sat07/11/15 at 2200, Until Discontinued, Routine 2208 (Given - Provider: Julieta Montgomery RN) 0939 (Given - Provider: Kath Deluna RN)2030 (Given - Provider: Deidra [place] RN) 0934 (Given - Provider: Kath Deluna RN) esomeprazole (NexIUM) capsule 40 mg (CANCELED) 40 mg, Oral, DAILY, First dose on Sat07/12/15 at 0900, Until Discontinued, Routine 0939 (Given - Provider: Kath Deluna RN) 0935 (Given - Provider: Kath Deluna RN) metroNIDAZOLE (METROGEL) 1 % gel (CANCELED) Topical (Top), DAILY, First dose on Sat07/12/15 at 0900, Until Discontinued 40 (Given - Provider: Kath Deluna RN) 0936 (Given - Provider: Kaht Deluna RN) oxybutynin (DITROPAN) tablet 5 mg 5 mg, Oral, 2 TIMES DAILY, First dose on Sat07/12/15 at 2100, Until Discontinued, Routine 2030 (Given - Provider: Deidra London RN) 0935 (Given - Provider: Kath Deluna RN) piperacillin-tazobactam (ZOSYN) 3.375 g in dextrose 5% 50 mL (COMPLETED) 3.375 g, Intravenous, ONCE, 1 dose, On Sat07/11/15 at 1656, Administer over 4 Hours, faculty i on call medical assistant to OR, Indication for (Active or Suspected): Urinary Tract/Pyelonephritis 1804 (Given - Provider: Fredo Vasquez CRNA) piperacillin-tazobactam (ZOSYN) 3.375 g in dextrose 5% 50 mL (CANCELED) 3.375 g, Intravenous, EVERY 8 HOURS, First dose on Sat07/12/15 at 0300, Until Discontinued, Administer over 4 Hours, Indication for (Active or Suspected): Urinary Tract/Pyelonephritis 0304 (Given - Provider: Julieta Montgomery RN)1146 (Given - Provider: Kath Deluna RN)1855 (Given - Provider: Kath Deluna RN) 0219 (Given - Provider: Deidra London RN)1138 (Given - Provider: Kath Deluna RN) predniSONE (DELTASONE) tablet 5 mg (CANCELED) 5 [...] - Reason: Contraindicated)2031 (Given - Provider: Deidra London RN) 0939 (Given - Provider: Kath Deluna RN) tamsulosin (FLOMAX) ER capsule 0.4 mg 0.4 mg, Oral, DAILY, First dose on Sat07/12/15 at 0900, Until Discontinued, Routine 0937 (Given - Provider: Kath Deluna RN) 0935 (Given - Provider: Kath Deluna RN) Continuous Medication Order 07/11/2015 07/12/2015 07/13/2015 lactated ringers infusion (CANCELED) 50 mL/hr, Intravenous, CONTINUOUS, Starting on Sat07/11/15 at 1602, Until Sat07/12/15 at 0710 1747 (New Bag - Provider: Fredo Vasquez CRNA)1748 (MAR Hold - Provider: Admin Adt - Reason: Transfer to a Procedural area)1818 (Anesthesia Volume Adjustment - Provider: Fredo Vasquez CRNA)1849 (Anesthesia Volume Adjustment - Provider: Fredo Vasquez CRNA)2115 (MAR Unhold - Provider: Admin Adt) PRN Medication Order 07/11/2015 07/12/2015 07/13/2015 ibuprofen (ADVIL;MOTRIN) tablet 600 mg (CANCELED) 600 mg, Oral, EVERY 6 HOURS PRN, Starting on Sat07/12/15 at 1534, Until Sat07/13/15 at 1612, Pain, Administer orally with milk or food to minimize GI irritation. Maximum dose of 3200 mg from all sources in 24 hours, Routine 1858 (Given - Provider: Kath Deluna RN) 1146 (Given - Provider: Kath Deluna RN) [...] Julieta Montgomery RN)1201 (Given - Provider: Kath Deluna RN) No Frequency Medication Order 07/11/2015 07/12/2015 07/13/2015 [...] Routine documented in this encounter Care Teams Jig Hand Relationship Specialty Start Date End Date Mariluz Watts MD [address] [facility] [address] [place] [address] PCP - General 08/22/10 documented as of this encounter
--- OUTSIDE RECORDS SUMMARY | 2024-05-18 19:59 | XMS_ITS | Encounter Summary ---
Author Organization [facility] [place] [address] Care Team Providers Care Scheduling Clerk Name Role Phone Mariluz Watts MD Primary Care Provider [phone] Encounter Details Date Type Department Care Team (Late st Contact Info) Description 07/11/2015 - 07/11/2015 12:04 AM EDT Hospital Encounter [place] [address] Abrahan Merlos MD [facility] HEMATOLOGY/[place] [address] Social History Tobacco Use Types Packs/Day Years [...] Refills Start Date End Date LACTOBAC CMB #1-NEG-[id number] ORAL Take 1 tablet by mouth daily. [...] to rough spots on thighs. 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 pick pack worker both scripts 02/02/14 400 g 10 02/01/2014 [...] Office Visit General Surgery at [place] [phone] Paula Harris PA [facility] [place] [address] 01/26/2025 9:50 AM EDT Appointment Mammography/DXA at [place] [phone] Joan Deutsch [facility] [place] [address] 01/26/2025 10:50 AM EDT Office [place] [phone] Joan Deutsch, [facility] [place] [address] documented as of this encounter Procedures Procedure Name Priority Date/Time Associated Diagnosis Comments FILM LIBRARY STORAGE ONLY CT ABDOMEN AND PELVIS STAT 07/11/2015 12:00 AM EDT Pain documented in this encounter Results * Film Library- Storage Only CT Abdomen & Pelvis (07/11/2015 12:00 AM EDT) Narrative User, Generic Transmittal - 07/11/2015 3:39 PM EDT See PACS for result report. Jose D Chauhan III, MD IMG FILM LIBRARY ORDERABLES documented in this encounter Visit Diagnoses Not on filedocumented in this encounter Care Teams Scheduling Clerk Relationship Specialty Start Date End Date Mariluz Watts MD [address] [place] [address] [address] [place] [address] PCP - General 08/22/10 documented as of this encounter
--- OUTSIDE RECORDS SUMMARY | 2024-05-18 19:59 | XMS_ITS | Encounter Summary ---
[facility] [place] [address] Care Team Providers Care Sap Trainer Name Role Phone Mariluz Watts MD Primary Care Provider [phone] Reason for Visit * Reason Comments Left Hip Pain hip pain Left Knee Pain knee pain Encounter Details Date Type Department Care Team (Late st Contact Info) Description 03/01/2014 8:30 AM EDT Office [place] [address] Alexandro Santiago, PA [facility] [place] [address] S/P Left Anterior ARSLAN- 07/22/12 (Dr. Ervin) (Primary Dx) Discharge Disposition: Home Social History [...] Sign Reading Time Taken Comments Blood Pressure 114/67 03/01/2014 9:01 AM EDT Pulse 81 03/01/2014 9:01 AM EDT Temperature - - Respiratory Rate - - Oxygen Saturation - - Inhaled Oxygen Concentration - - Weight 104.8 kg (231 lb) 03/01/2014 9:01 AM EDT Height 167.6 cm (5' 6) 03/01/2014 9:01 AM EDT Body Mass Index 37.28 03/01/2014 9:01 AM EDT documented in this encounter Progress Notes * Alexandro Santiago PA - 03/01/2014 9:23 AM EDT CHIEF COMPLAINT: Followup bilateral total hip arthroplasties with Dr. Ervin with some groin pain on the left side consistent with iliopsoas tendonitis. Also with some recent clicking in her left knee. She would like to review. HISTORY OF PRESENT ILLNESS: This is a pleasant 68-year-old female here today with regards to her left hip, primarily the right hip continues to do extremely well, left hip now a year and a half out has never done quite as well. She in her last visit was felt to have iliopsoas tendonitis. She has tried six weeks of physical therapy without any significant improvement. It is a bit limiting for her. They had discussed an iliopsoas injection last time and is yet to review whether that may be an option. In addition, she has some new onset of left knee clicking. There is no pain or swelling at this time, but she wanted to get an updated x-rays and review the underlying problems. No other interval changes. PHYSICAL EXAMINATION: This is an overweight 68-year-old in no acute distress. A and O x3 with pleasant affect. She comes into the office today with mild antalgia. Exam of the left hip shows no obvious deformity. Skin is warm and dry without lesions. Nontender over the greater trochanter. She has full pain free passive range of motion of the left hip with flexion to 110, external rotation to 40, internal rotation to 25. She does have pain with active hip flexion and with resisted hip flexion felt deep in the groin. Exam of the left knee demonstrates no obvious deformity. She does have a mild effusion, mild discomfort with patellar mobilization. Range of motion 0 to 120. Stable to varus and valgus stress at 0 and 30 degrees. Negative anterior and posterior drawer sign. Negative Pamela's, negative Tonio's, negative Renard's, negative medial or lateral joint line tenderness. X-rays are reviewed in the office today including four views of the left knee demonstrating severe medial compartment disease, best seen on Schuss with patellofemoral disease as well bilaterally. IMPRESSION: 1. Status post left total hip arthroplasty with iliopsoas tendonitis. 2. Left knee arthritis. PLAN: I had a lengthy conversation with the patient in the office today about the nature of her findings with regards to her left hip. We reviewed options. She would like to do the CT-guided injection at this time. I think it is a reasonable approach given the duration of her symptoms. We reviewed risks and benefits. We will get that set up for her with Radiology. As far as the left knee goes, while she does have significant arthritis there, she is not having a lot of pain, simply new onset of a click. For now, we will simply continue to watch and wait. She is not interested in any injection therapy or changes as far as the left knee goes. She was simply interested in understanding the underlying processes. We will plan to see her back for her next scheduled visit in June for rotary visit for both hips or sooner with any difficulties. The patient feels comfortable with this approach. documented in this encounter Plan of Treatment Upcoming Encounters Date Type Department Care Team (Late st Contact Info) Description 11/16/2024 1:00 PM EST Office [place] [address] Paula Harris PA [facility] [place] [address] 01/26/2025 9:50 AM EDT Appointment Mammography/[place] [phone] Joan Deutsch APRN [facility] [place] [address] 01/26/2025 10:50 AM EDT Office [place] [address] Joan Deutsch APRN [facility] [place] [address] documented as of this encounter Results * CT Guided tendon sheath injection (03/16/2014 10:12 AM EDT) Anatomical Region Laterality Modality Computed Tomogra phy 03/16/2014 10:1 2 AM EDT Impressions 03/17/2014 11:10 AM EDT IMPRESSION: ?? Uneventful left iliopsoas tendon sheath injection under CT. ?? Resident/ Fellow :none ?? Attending: Miah Valentine MD was present for and performed the entire procedure. Narrative 03/17/2014 11:10 AM EDT HISTORY: Pain left hip ?? Left iliopsoas tendon sheath INJECTION UNDER CT ?? TECHNIQUE: ?? After an extensive conversation with the patient regarding risks and benefits, oral and written consent were obtained. A pre- procedural time-out was performed as per [facility] protocol. ?? The patient was placed supine on the fluoroscopic table. The skin overlying the left hip joint was prepped and draped in the usual aseptic manner. 1% Lidocaine was used to achieve local anesthesia. Under fluoroscopic guidance, a 22 gauge spinal needle was advanced into the left iliopsoas tendon sheath. A mixture of Bupivacaine and depomedrol was injected. All needles removed at end of procedure. ?? FINDINGS: ?? 1. Small amount of injected contrast in the joint space. ?? 2. PAIN SCORE: ?? Before: 4 /10 with hip flexion ?? After: 4 /10 with hip flexion ?? 3. Medications: ?? Lidocaine 1% - <5 ml, for subcutaneous anesthesia ?? Bupivacaine HCL 0.5% - 2 ml ?? Depomedrol: 80 mg, vial size: 80 mg; discarded: 0 mg ?? COMPLICATIONS: None immediate. ?? POST-PROCEDURE CARE: Information regarding monitor of infection, post- procedural pain and management of steroid flare were reviewed with patient. ?? Procedure Note Miah Cain MD - 03/17/2014 HISTORY: Pain left hip Left iliopsoas tendon sheath INJECTION UNDER CT TECHNIQUE: After an extensive conversation with the patient regarding risks andbenefits, oral and written consent were obtained. A pre- procedural time-out was performed as per [facility] protocol. The patient was placed supine on the fluoroscopic table. The skinoverlying the left hip joint was prepped and draped in the usual aseptic manner. 1%Lidocaine was used to achieve local anesthesia. Under fluoroscopic guidance, a 22gauge spinal needle was advanced into the left iliopsoas tendon sheath. Amixture of Bupivacaine and depomedrol was injected. All needles removed at end of procedure. FINDINGS: 1. Small amount of injected contrast in the joint space. 2. PAIN SCORE: Before: 4 /10 with hip flexion After: 4 /10 with hip flexion 3. Medications: Lidocaine 1% - <5 ml, for subcutaneous anesthesia Bupivacaine HCL 0.5% - 2 ml Depomedrol: 80 mg, vial size: 80 mg; discarded: 0 mg COMPLICATIONS: None immediate. POST-PROCEDURE CARE: Information regarding monitor of infection, post- procedural pain and management of steroid flare were reviewed withpatient. IMPRESSION IMPRESSION: Uneventful left iliopsoas tendon sheath injection under CT. Resident/ Fellow :none Attending: Miah Valentine MD was present for and performed theentire procedure. Kian Ervin MD IMG CT ORDERABLES documented in this encounter Visit Diagnoses Diagnosis S/P Left Anterior ARSLAN- 07/22/12 (Dr. Ervin)- Primary Hip joint replacement by other means S/P Left Anterior ARSLAN- 07/22/12 (Dr. Ervin) Hip joint replacement by other means documented in this encounter Care Teams Sap Trainer Relationship Specialty Start Date End Date Mariluz Watts MD [address] [facility] [address] [place] [address] PCP - General 08/22/10 documented as of this encounter
--- OUTSIDE RECORDS SUMMARY | 2024-05-18 19:59 | XMS_ITS | Encounter Summary ---
[place] [address] Care Team Providers Care Field Artillery Cannoneer Name Role Phone Mariluz Watts MD Primary Care Provider [phone] Encounter Details Date Type Department Care Team (Late st Contact Info) Description 12/21/2014 2:53 PM EDT - 12/21/2014 11:59 PM EDT Hospital En[place] [address] Social History Tobacco Use Types Packs/Day Years [...] Refills Start Date End Date LACTOBAC CMB #5-TAP-TSIOLFAIZE ORAL Take 1 tablet by mouth daily. [...] to rough spots on thighs. 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 GENERAL SURGERY [place], [place] [id number] 01/26/2025 9:50 AM EDT Appointment Mammography/[place] [address] Joan Deutsch APRN [facility] [place] [address] 01/26/2025 10:50 AM EDT Office Visit General Surgery at [facility] [place] [address] Joan Deutsch APRN [facility] [place] [address] documented as of this encounter Procedures Procedure Name Priority Date/Time Associated Diagnosis Comments MAMMO SCREENING CAD BILATERAL Routine 12/21/2014 3:15 PM EDT documented in this encounter Results * Mammo digital bilateral Screening with CAD (12/21/2014 3:15 PM EDT) Anatomical Region Laterality Modality Breast Bilateral Mammography 12/21/2014 3:15 PM EDT Narrative 12/22/2014 10:51 AM EDT REASON FOR EXAM: Screening. ?? TECHNIQUE: Cranio-caudal (CC) and mediolateral oblique (MLO) views of both breasts obtained with direct digital capture. The exam was evaluated by CAD Version 8.3.17. FINDINGS: This is a BENIGN FINDING (BIRADS Category 2 mammogram). ??There is a stable fibroglandular pattern without significant change as compared to prior studies. There is no mammographic evidence of cancer. The breasts are of scattered density. There are post-surgical changes in both breasts. CONCLUSION This is a negative mammogram with a BENIGN FINDING (BIRADS Category 2 mammogram). ??The next mammogram is recommended at an interval dependent on age and breast cancer risk factors. ?? A letter has been sent to this patient by [facility]. Procedure Note Bella Dowling MD - 12/22/2014 REASON FOR EXAM: Screening. TECHNIQUE: Cranio-caudal (CC) and mediolateral oblique (MLO) views of both breasts obtained with direct digital capture. The exam was evaluated byCAD Version 8.3.17. FINDINGS: This is a BENIGN FINDING (BIRADS Category 2 mammogram). Thereis a stable fibroglandular pattern without significant change as compared toprior studies. There is no mammographic evidence of cancer. The breasts are of scattered density. There are post-surgical changes in both breasts. CONCLUSION This is a negative mammogram with a BENIGN FINDING (BIRADS Category 2 mammogram). The next mammogram is recommended at an interval dependent onage and breast cancer risk factors. A letter has been sent to this patient by the [facility]. Bella Ly APRN IMG MAMMO ORDERA BLES documented in this encounter Visit Diagnoses Not on filedocumented in this encounter Care Teams Field Artillery Cannoneer Relationship Specialty Start Date End Date Mariluz Watst MD [address] [place] [address] PCP - General 08/22/10 documented as of this encounter
--- OUTSIDE RECORDS SUMMARY | 2024-05-18 19:59 | XMS_ITS | Encounter Summary ---
Author Organization [place] [address] Care Team Providers Care Burglary Investigator Name Role Phone Mariluz Watts MD Primary Care Provider [phone] Encounter Details Date Type Department Care Team (Latest Contact Info) Description 03/16/2014 8:57 AM EDT - 03/16/2014 11:59 PM EDT Hospital [place] [address] CLINIC, Kian Stone MD [address] [place] [address] S/P Left Anterior ARSLAN- 07/22/12 (Dr. Ervin) Discharge Disposition: Home Social History Tobacco Use [...] Refills Start Date End Date LACTOBAC CMB #7-BRV-YWUCRYRTAL ORAL Take 1 tablet by mouth daily. [...] rough spots on thighs. 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 pick out hand both scripts 02/02/14 400 g 10 02/01/2014 05/01/2018 metroNIDAZOLE (METROGEL) 1 % gelIndications:Rosacea Apply topically daily. 45 g 10 02/01/2014 05/01/2018 predniSONE (DELTASONE) 10 mg tablet Take 1 tablet by mouth daily. Please mail. 30 tablet 3 08/19/2013 06/28/2015 amoxicillin-clavulanat e (AUGMENTIN) 500-125 mg per tablet Take 4 tablets by mouth as needed. Reported on 12/11/2016 03/16/2013 05/01/2018 anastrozole (ARIMIDEX) 1 mg tabletIndications:[facility] st cancer, stage 2 Take 1 tablet by mouth nightly. 90 tablet 3 06/12/2013 07/02/2014 citalopram (CELEXA) 20 mg tablet Take 20 mg by mouth daily. 05/16/2016 ibuprofen (ADVIL;MOTRIN) 600 mg tablet Take 600 mg by mouth 4 times daily. 11/06/2018 cholecalciferol, Vitamin D3, (VITAMIN D) 1,000 unit Tab tablet Take 1 tablet by mouth daily. 60 tablet 5 07/25/2012 09/07/2022 documented as of this encounter Procedure Notes * Miah Cain MD - 03/16/2014 4:35 PM EDTProcedure(s): CT GUIDED INJECTION TENDON SHEATH Pre-Procedure Diagnose(s): Left hip pain [employer] [id number] HISTORY: Pain left hip Left iliopsoas tendon sheath INJECTION UNDER CT TECHNIQUE: After an extensive conversation with the patient regarding risks and benefits, oral and written consent were obtained. A pre- procedural time-out was performed as per [facility] [place] protocol. The patient was placed supine on [...] of steroid flare were reviewed with patient. IMPRESSION: Uneventful left iliopsoas tendon sheath injection under CT. Resident/ Fellow :none Attending: Miah Valentine MD was present for and performed the entire procedure. documented in this encounter Plan of Treatment Upcoming Encounters Date Type Department Care Team (Late st Contact Info) Description 11/16/2024 1:00 PM EST Office [place] [phone] Paula Harris PA [facility] [place] [address] 01/26/2025 9:50 AM EDT Appointment Mammography/[place] [phone] Joan Deutsch APRN [facility] [place] [address] 01/26/2025 10:50 AM EDT Office [place] [address] Joan Deutsch APRN [facility] [place] [address] documented as of this encounter Procedures Procedure Name Priority Date/Time Associated Diagnosis Comments CT GUIDED TENDON SHEATH INJECTION Routine 03/16/2014 10:12 AM EDT S/P Left Anterior ARSLAN- 07/22/12 (Dr. Ervin) documented in this encounter Results * CT Guided tendon sheath injection (03/16/2014 10:12 AM EDT) Anatomical Region Laterality Modality Computed Tomogra phy 03/16/2014 10:1 2 AM EDT Impressions 03/17/2014 11:10 AM EDT IMPRESSION: ?? Uneventful left iliopsoas tendon sheath injection under CT. ?? Resident/ Fellow :none ?? Attending: IMiah MD was present for and performed the entire procedure. Narrative 03/17/2014 11:10 AM EDT HISTORY: Pain left hip ?? Left iliopsoas tendon sheath INJECTION UNDER CT ?? TECHNIQUE: ?? After an extensive conversation with the patient regarding risks and benefits, oral and written consent were obtained. A pre- procedural time-out was performed as per [facility] [place] protocol. ?? The patient was placed supine [...] pre- procedural time-out was performed as per [facility] [place] [facility] protocol. The patient was placed supine on [...] Diagnosis S/P Left Anterior ARSLAN- 07/22/12 (Dr. Ervin) Hip joint replacement by other means documented in this encounter Care Teams Burglary Investigator Relationship Specialty Start Date End Date Mariluz Watts MD [address] [place] [address] [facility] [address] [place] [address] PCP - General 08/22/10 documented as of this encounter
--- OUTSIDE RECORDS SUMMARY | 2024-05-18 19:59 | XMS_ITS | Encounter Summary ---
Author Organization [facility] [place] [address] Care Team Providers Care Bilingual Medical Assistant Name Role Phone Mariluz Watts MD Primary Care Provider [phone] Reason for Visit * Reason Comments Follow-up Encounter Details Date Type Department Care Team (Late st Contact Info) Description 12/22/2013 1:00 PM EDT Follow-Up Hematology [place] [address] Abrahan Merlos MD [facility] DR HEMATOLOGY/[place] [address] Osteopenia; Breast cancer, stage 2 Discharge Disposition: Home Social History Tobacco Use [...] Sign Reading Time Taken Comments Blood Pressure 107/77 12/22/2013 12:57 PM EDT Pulse 104 12/22/2013 12:57 PM EDT Temperature - - Respiratory Rate 16 12/22/2013 12:5 7 PM EDT Oxygen Saturation 97% 12/22/2013 12: 57 PM EDT Inhaled Oxygen Concentration - - Weight 105.5 kg (232 lb 9.4 oz) 014 12:57 PM EDT Height 167 cm (5' 5.75) 12/22/2013 12: 57 PM EDT Body Mass Index 37.83 12/22/2013 12:57 PM EDT documented in this encounter Patient Instructions * Patient Instructions* Abrahan Merlos MD - 12/22/2013 1:29 PM EDT Your exam and mammograms look good and I don;t see any evidence of breast cancer recurrence/. I will email you tomorrow with the Vitamin D level, your liver enzymes are normal. I will see you next in 6 months. 18 more months of anastrozole and then you're done. documented in this encounter Progress Notes * Abrahan Merlos MD - 12/22/2013 9:11 PM EDT Subjective: Patient ID: Diamond Gaming is a 68 y.o. female with Stage II breast cancer, [...] an increased frequency of hot flashes, and increasedarthralgias of her left hand and thumb, wrists, feet, and ankles. Interval History: She saw Dr. Aviles on May 20 who started her on plaquenil and on upccgrkoon34 mg daily. Diamond currently has pain in her left hip, left thumb, the right foot, the neck, and the shoulders. She has stopped the plaquenil due to a rash. She has tapered herself from 10 mg to 5 mg of prednisone daily, and she has not noted any change in her pain with the taper. She is considering stopping the prednisone entirely. Her weight has increased by 10 kg since starting the prednisone. She has 4-10 hot flashes each day, but she denies any vaginal dryness. She has had a facial rash ever since starting the prednisone. She developed conjunctivitis last fall and her vision is still occ asionally blurry in the evenings. She has not had any other infections over the past six months. She takes 2000 units of Vitamin D daily. Review of Systems She denies depression, breast pain or a palpable breast mass, a cough, shortness of breath, chest pain, nausea, vomiting, diarrhea, constipation, headaches, double vision, pain, redness, or swelling in her lower extremities, or any other sites of joint or skeletal pain. The remainder of her review of systems is negative. Objective: Physical Exam Vitals reviewed. Constitutional: She is oriented to person, place, and time. She appears well- developed and well-nourished. HENT: Mouth/Throat: Oropharynx is clear and moist. No oropharyngeal exudate. Cardiovascular: Normal rate, regular rhythm and normal [...] Skin is warm and dry. No erythema. She has facial erythema consistent with rosacea. Psychiatric: She has a normal mood and affect. The most recent mammograms from December 09, 2012 showed a stable fibroglandular pattern without significant change. She is s/p reduction surgery bilaterally. The breasts were of scattered density. The mammograms were repeated today, and the results are pending. The most recent Dexa scan from December 09, 2012 showed T scores of -1.2 in the lumbar spine (down from -1.1 in September 2010), and -1.5 in the left wrist. No prior study had been done of the left wrist. Recent Results (from the past 24 hour(s)) VIT D TOTAL EVALUATION Component Value Range 25-OH Vit D Total 42 30 - 100 ng/mL HEPATIC FUNCTION PANEL Component Value Range Total Protein 6.8 6.4 - 8.3 gm/dL Albumin 4.5 3.2 - 5.2 gm/dL AST 26 0 - 30 unit/L ALT 31 (*) 0 - 30 unit/L Alk Phos 74 40 - 104 unit/L Total Bilirubin 0.3 0.2 - 1.3 mg/dL Bili, Direct 0.1 0.0 - 0.3 mg/dL Assessment and Plan: Ms. Gaming is doing well and has no evidence of breast cancer recurrence. The anastrozole has been complicated by worsening of her chronic arthralgias and of her vasomotor symptoms. She does not wish to modify her dosing of citalopram or add any new agents to control her vasomotor symptoms. I offered to switch her from anastrozole to tamoxifen, but she would prefer to continue the anastrozole to complete a total of five years of therapy. She thinks that she can hold out on anastrozole for another 18 months, and she does not think her arthralgias are any worse now than at her baseline prior to the start of anastrozole. Her Vitamin D dosing has been optimized. She will followup with Dermatology on February 01, the rosacea may improve with stopping the prednisone. I will see her next in followup insix months. Abrahan Merlos MD emergency department clinician in Hematology-Oncology * Kamala Mello RN - 12/22/2013 1:02 PM EDT Hematology Oncology Nursing Note Abrahan is here today for follow up +++++ breast cancer. Patient Complaints: Review of Systems: Fever/Signs of Infection: none Neuro: wnl HEENT: cellulitis of her face, conjunctivitis both eyes, stuffiness in sinus', Resp: wnl Cardiac: wnl GI:wnl :wnl Extremities: joint pain in fingers, thumbs, neck, shoulders, knees Pain: left hip bursitis, has seen Dr Ervin. Discomfort on right chest wall lateral and under right breast Sleep: has chronic insomnia Vasomotor Symptoms: hot flashes, 4-10/day Sexuality/Body Image: no partner for intercourse Coping: many family stressors KPS: 90% Anticipatory Guidance: Medication Refills:none Referrals: Advance Directives: Plan of Care: documented in this encounter Plan of Treatment Upcoming Encounters Date Type Department Care Team (Late st Contact Info) Description 11/16/2024 1:00 PM EST Office Visit [place] [phone] Paula Harris PA [facility] [place] [address] 01/26/2025 9:50 AM EDT Appointment Mammography/[place] [phone] Joan Deutsch, KINESEOLOGIST [facility] [place] [address] 01/26/2025 10:50 AM EDT Office Visit [place] [address] Joan Deutsch, GE [facility] [place] [address] documented as of this encounter Procedures Procedure Name Priority Date/Time Associated Diagnosis Comments VITAMIN D, 25-HYDROXY Routine 12/22/2013 11:59 AM EDT Osteopenia HEPATIC FUNCTION PANEL STAT 12/22/2013 11:59 AM EDT Breast cancer, stage 2 documented in this encounter Results * (ABNORMAL) Hepatic Function Panel (12/22/2013 11:59 AM EDT) Protein, Total 6.8 6.4 - 8.3 gm/dL CERNER MILLENNIUM Albumin 4.5 3.2 - 5.2 gm/dL CERNER MILLENNIUM Aspartate Aminotransferase 26 0 - 30 unit/L CERNER MILLENNIUM Alanine Aminotransferase 31(H) 0 - 30 unit/L CERNER MILLENNIUM Alkaline Phosphatase 74 40 - 104 unit/L CERNER MILLENNIUM Bilirubin, Total 0.3 0.2 - 1.3 mg/dL CERNER MILLENNIUM Bilirubin, Direct 0.1 0.0 - 0.3 mg/dL CERNER MILLENNIUM Blood specimen (specimen) 12/22/2013 11:59 AM EDT 12/22/2013 12:04 PM EDT Narrative Resulting Agency Comment Spec In Lab Abrahan Merlos MD CHEMISTRY ORDERABLES [facility] * VIT D Total Evaluation (12/22/2013 11:59 AM EDT) Vitamin D Total 25 OH 42 30 - 100 ng/mL CERNER MILLENNIUM Comment: Deficient <10 ng/mL Insufficient 10 to 29 ng/mL Sufficient 30 to 100 ng/mL Potential Intoxication >100 ng/mL According to the US National Osteoporosis Foundation, Vitamin D concentrations >30 ng/mL are sufficient to protect bone health. ??The National Kidney Foundation has similarly stated that patients with Vitamin D concentrations <30ng/mL should be considered to be insufficient or deficient. http://www.kidney.org/professionals/KDOQI/guidelines_bone/Guide7.htm http://www.nof.org/professionals/clinical-guidelines The IDS iSYS Vitamin D Immunoassay detects both 25-OH Vitamin D2 and 25-OH Vitamin D3, but only a total Vitamin D concentration is reported. Blood specimen (specimen) 12/22/2013 11:59 AM EDT 12/22/2013 12:04 PM EDT Narrative Resulting Agency Comment Spec In Lab Abrahan Merlos MD CHEMISTRY ORDERABLES Performing Organization Address City/State/[facility] Co al Phone Number [facility] documented in this encounter Visit Diagnoses Diagnosis Osteopenia Disorder of bone and cartilage, unspecified Breast cancer, stage 2 Malignant neoplasm of breast (female), unspecified site documented in this encounter Care Teams Bilingual Medical Assistant Relationship Specialty Start Date End Date Mariluz Watts MD [address] [place] [address] PCP - General 08/22/10 documented as of this encounter
--- OUTSIDE RECORDS SUMMARY | 2024-05-18 19:59 | XMS_ITS | Encounter Summary ---
[place] [address] Care Team Providers Care Methods Engineer Name Role Phone Mariluz Watts MD Primary Care Provider [phone] Reason for Visit * Reason Comments Medication Refill Encounter Details Date Type Department Care Team (Late Contact Info) Description 08/19/2013 Refill Hematology [place] [address] Nhi Chadwick SPIKEMAKING SUPERVISOR [facility] [address] HEMATOLOGY/[place] [address] Social History Tobacco Use Types Packs/Day Years [...] PM EST Office [place] [address] [facility] [place] [address] 01/26/2025 9:50 AM EDT Appointment Mammography/[place] [address] Joan Deutsch, [place] [facility] [place] [address] 01/26/2025 10:50 AM EDT Office Visit General Surgery at [place] [phone] Joan Deutsch, [place] [facility] [place] [address] documented as of this encounter Visit Diagnoses Not on filedocumented in this encounter Care Teams Methods Engineer Relationship Specialty Start Date End Date Mariluz Watts MD [address] [facility] [address] [place] [address] PCP - General 08/22/10 documented as of this encounter
--- OUTSIDE RECORDS SUMMARY | 2024-05-18 19:59 | XMS_ITS | Encounter Summary ---
Author Organization [facility] [place] [address] Care Team Providers Care Otolaryngology Nurse Name Role Phone Mariluz Watts MD Primary Care Provider [phone] Reason for Referral * Physical Therapy (Routine) - Complete - Patient Will Schedule External Appt Specialty Diagnoses / Procedures Referred By John lyons Referred To Contact Physical Therapy Diagnoses S/P total hip arthroplasty Francheska Buchanan PA [facility] [place] [address] Referral ID Status Reason Start Date Expiration Date Visits Requested Visits Authorized [id number] Complete - Patient Will Schedule External Appt Evaluate and Treat 12/14/2013 06/12/2014 12 12 Reason for Visit * Reason Comments Follow Up Surgery s/p left ant arslan dos 07/22/12 s/p b/l arslan Encounter Details Date Type Department Care Team (Late st Contact Info) Description 12/14/2013 8:30 AM EDT Office [place] [address] CLIN[address], DR CONV S/P Left Anterior ARSLAN- 07/22/12 (Dr. Ervin); S/P Right ARSLAN 03/06/2005 (Arcadio) Discharge Disposition: Home Social History Tobacco Use [...] Sign Reading Time Taken Comments Blood Pressure 134/92 12/14/2013 8:44 AM EDT Pulse 86 12/14/2013 8:44 AM EDT Temperature - - Respiratory Rate - - Oxygen Saturation - - Inhaled Oxygen Concentration - - Weight 106.8 kg (235 lb 8 oz) 4 8:44 AM EDT with shoes. Height 168.9 cm (5' 6.5) 12/14/2013 8: 44 AM EDT Body Mass Index 37.44 12/14/2013 8:44 AM EDT documented in this encounter Progress Notes * Francheska Buchanan PA - 12/14/2013 8:59 AM EDT Patient Name: Diamond Gaming : 1945 MR#: [id number] Date of Visit: 12/14/2013 Date: March 06, 2005 Surgeon: Kian Ervin MD Surgical Procedure Performed: Right total hip arthroplasty, cementless, [id number] Components Used: Nicole Trident 52 shell outer diameter Femoral head 32-4 mm Nicole Accolade Femoral stem size 4, 127 deg Date: 07/22/2012 Surgeon: Kian Ervin MD Surgical Procedure Performed: Injection left hip with 10 cc marcaine 0.25% with epi, into skin and subcutaneous tissues (CPT [id number]) left total hip arthroplasty, anterior Hueter approach with [place] table (CPT code 52905) Left hip intraoperative radiologic examination (CPT code 57810) Amicar infusion (5 g IV load, then 1g/hr x 3 hrs) Components Used: Lueders Accolade stem, size 4, 127 degrees Trident PSLcup, 52 mm, solid 32 mm ID, alumina 32-4 mm alumina head Bearing surface: ceramic on ceramic Questionnaire Responses: myD-H Hip & Knee 12/14/2013 MODEMS Expectation - MODEMS Satisfaction 66.66 VR12 - Physical Component Summary 32.22 VR12 - Mental Component Summary 50.49 PROMIS-10 General Health Good PROMIS-10 Quality of Life Fair PROMIS-10 Physical Health Fair PROMIS-10 Mental Health Very Good PROMIS-10 Social Activity and Relationship Satisfaction Poor PROMIS-10 Social Roles at Home and Work Good PROMIS-10 Everyday Physical Activities Moderately PROMIS-10 Anxious or Depressed last 7 days Sometimes PROMIS-10 Fatigue last 7 days Mild PROMIS-10 Pain last 7 days 5 PROMIS PHYSICAL HEALTH SCORE (range 16-68) 39.8 PROMIS MENTAL HEALTH SCORE (range 21-68) 38.8 Arthritis Ladder - Hip - HPI: Diamond Gaming is a very pleasant 67 y.o. year-old female who presents for a scheduled followup of her hip replacements, she is now over one year out from left anterior ARSLAN and 9 years out from right ARSLAN. Her right hip has been doing very well, her pain is significantly improved compared to preoperatively. She has no issues or pain in the right hip. Occasionally the hip will get achy in the muscles with colder weather but this does not limit her. She has been struggling though more with her right hip. Starting about 6 months after surgery, she started to have a sharp pain in her deep groin with walking or lifting her leg, especially when getting in and out of a car. She did have some symptoms like this prior to surgery but that felt more mechanical to her, this now feels different, more muscular in nature. At times this will wake her at night but not every night. She has not been walking as much as she used to mostly due to the cold weather and ice, but also due to this hip aggravation. She does not have as much pain when walking on flat steady ground but has significant discomfort any time she has to lift her leg such as putting onsocks and shoes are getting in and out of the car. She has not been doing her stretches as much andhas not been riding her stationary bike because she's concerned she will injure her hip. She is very concerned that she may have a bleed or other problem with the left hip as she has a bleeding disorder. She denies any fullness or discomfort to palpation around the left anterior hip, no skin issuesor incision problems. No other signs or symptoms of infection. She also discusses that her mother broke her arm in July 2013 and she has been taking quite a bit of time to take care of her. Her mother was also the primary caregiver for her father who has significant dementia and he subsequently was transferred to a care facility which was very stressful. Her mother is now recovering well from her fracture. ROS: No fevers, chills, nausea, vomiting, or symptoms of infection. Eating and drinking well. Sleeping well at night. No chest pain or SOB. She has been trying to cut back on her prednisone, she is on this per rheumatology. She is also trying to decrease her ibuprofen and take, she does not think it is helping much with discomfort anyway. She gained weight over this last winter, about 30 pounds, she believes this is mostly due to inactivity. She is eager to work on losing weight and becoming more active again. She is taking antibiotic faithfully before all dental work. Social History: Nonsmoker. No alcohol use. Lives alone with her dog, an [place] pratt. 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 Physical Exam: Filed Vitals: 12/14/13 0844 BP: 134/92 Pulse: 86 Height: 168.9 cm (5' 6.5) Weight: 106.822 kg (235 lb 8 oz) Body mass index is 37.45 kg/(m^2). Well-appearing female in no acute distress. Alert and Oriented x 3 and answers all questions appropriately. The incision is well healed, with no signs of infection over right posterior hip and left anterior hip. Both calves are soft and non-tender, negative Vanessa's. Pedal pulses +2/4 and equal. Sensation equal and intact in both legs. +5/5 strength in EHL, FHL, tibialis anterior, gastrocnemius. Able to SLR both legs without lag, increased left groin/anterior hip pain with SLR and worse with resisted hip flexion. No pain right side. Both hip flexors +5/5 strength. Some discomfort with resisted hip abduction left side, +4/5 strength. Right hip abductors -5/5, no pain. I have made the following determinations: Post Op Right Hip Exam: Barber Hip Score: Less than 30 degrees of fixed flexion: Yes Less than 10 degrees of fixed adduction: Yes less than 10 degrees of fixed int rotation in extension: Yes Limb Length discrepancy: very minimal long right ~3-4 mm Motion: Total degrees of Flexion:110 Total degrees of Abduction:50 Total degrees of Ext Rotation: 45 Total degrees of Adduction: 15 Gait Abnormality: Normal Pulses Palpable: Right PT: Yes Right DP:Yes Motor/Sensory: Right Distal Motor: Normal Distal Sensory: Normal Hip Abductors: -5 Post Op Left Hip Exam: Barber Hip Score: Less than 30 degrees of fixed flexion: Yes Less than 10 degrees of fixed adduction: Yes Less than 10 degrees of fixed int rotation in extension: Yes Limb Length discrepancy: very minimal long right ~3-4 mm Motion: Total degrees of Flexion: 110 Total degrees of Abduction: 50 Total degrees of Ext Rotation: 45 Total degrees of Adduction: 15 Gait Abnormality: Normal Pulses Palpable: Left PT: Yes Left DP: Yes Motor/Sensory: Left Distal Motor: Normal Distal Sensory: Normal Hip Abductors: 4 X-RAYS: 12/14/2013- AP Pelvis and 2 views both hips Findings - Bilateral hip prostheses are present. The left hip prosthesis contains a cerclage wire. The prostheses are well positioned without complication or change in appearance since the prior study. Impression - Bilateral hip prostheses without complication. ASSESSMENT/PLAN: She is now 9 years out from right ARSLAN and doing very well. She is a little over one year out from her left anterior ARSLAN and struggling somewhat iliopsoas irritation and tendinitis, and to a lesser extent some hip abductor irritation. We discussed that this is not uncommon, on exam it is reassuring that she has absolutely no pain with passive range of motion at her left hip, her pain is triggered only by engaging her iliopsoas muscle especially against resistance. Her x-rays were also very reassuring, no evidence of complication. My recommendation was to start some physical therapy to work on stretching and strengthening of the iliopsoas as well as her hip abductors and establish a home regimen for this. She can work on her stationary bike as well, I advised her to discuss this with PT as they can help her to determine what will reduce irritation. She can continue on her medications as per rheumatology. Ice and heat as desired for relief. She will also continue to work on weight loss. I did reassure her that I do not think she has a bleed in this area, there is no fullness or abnormality in her left hip on exam. She also has no signs or symptoms of infection. Plan to followup in 3 months to assess her progress with her left iliopsoas pain. She is certainly encouraged to contact us sooner with questions or concerns. We discussed the appropriate precautions surrounding dental prophylaxis. I stressed that she shouldcall the office for a prescription prior to any further dental work for the lifetime of the joint replacement. We also discussed maintaining good foot care and giving prompt attention to any source of infection throughout the body including foot ulcers and urinary tract infections. Signed: MORENA AWAD 12/14/2013 documented in this encounter Plan of Treatment Upcoming Encounters Date Type Department Care Team (Late st Contact Info) Description 11/16/2024 1:00 PM EST Office Visit General Surgery at [place] [phone] Paula Harris PA [facility] [place] [address] 01/26/2025 9:50 AM EDT Appointment Mammography/[place] [address] Joan Deutsch APRN [facility] [place] [address] 01/26/2025 10:50 AM EDT Office [place] [phone] Joan Deutsch APRN [facility] [place] [address] Scheduled Referrals Name Type Priority Associated Diagnoses Orde r Schedule Referral to Physical Therapy Outpatient Referral Routine S/P Left Anterior ARSLAN- 07/22/12 (Dr. Ervin) Ordered: 12/14/2013 documented as of this encounter Visit Diagnoses Diagnosis S/P Left Anterior ARSLAN- 07/22/12 (Dr. Ervin) Hip joint replacement by other means S/P Right ARSLAN 03/06/2005 (Arcadio) Hip joint replacement by other means documented in this encounter Care Teams Otolaryngology Nurse Relationship Specialty Start Date End Date Mariluz Watts MD [address] [place] [address] PCP - General 08/22/10 documented as of this encounter
--- OUTSIDE RECORDS SUMMARY | 2024-05-18 19:59 | XMS_ITS | Encounter Summary ---
[place] [address] Care Team Providers Care Store Director Name Role Phone Mariluz Watts MD Primary Care Provider [phone] Reason for Visit * Reason Onset Date Comments Other 09/09/2013 Prednisone Weani ng Encounter Details Date Type Department Care Team (Late st Contact Info) Description 09/09/2013 Telephone [place] [address] Kimberly Ackerman RN Other (Prednisone Weaning) Social History Tobacco Use Types Packs/Day Years [...] encounter Miscellaneous Notes * Telephone Encounter - Kimberly Ackerman RN - 09/09/2013 2:32 PM EST Can you please call her and let her know that this is fine. She can taper at a later date. Thank you, Scar Message above from Dr. Aviles. I have called Diamond and left the message above. * Telephone Encounter - Kimberly Ackerman RN - 09/09/2013 12:37 PM EST Diamond calls today and reports that she is unable to reduce her Prednisone as previously agreed with , due to hurting more as she has had to unexpectedly take care of both her elderly parents the last few weeks. She states she will attempt to decrease in the next couple weeks as her parents will not need as much physical assistance. Diamond is staying with her parents for now and can be reached at [phone] Aviles needs to speak with her. documented in this encounter Plan of Treatment Upcoming Encounters Date Type Department Care Team (Late st Contact Info) Description 11/16/2024 1:00 PM EST Office Visit General Surgery at [place] [phone] Paula Harris PA [facility] [place] [address] 01/26/2025 9:50 AM EDT Appointment Mammography/[place] [phone] Joan Deutsch APRN [facility] [place] [address] 01/26/2025 10:50 AM EDT Office Visit [place] [phone] Joan Deutsch APRN [facility] [place] [address] documented as of this encounter Visit Diagnoses Not on filedocumented in this encounter Care Teams Store Director Relationship Specialty Start Date End Date Mariluz Watts MD [address] [place] [address] PCP - General 08/22/10 documented as of this encounter
--- OUTSIDE RECORDS SUMMARY | 2024-05-18 19:59 | XMS_ITS | Encounter Summary ---
[place] [address] Care Team Providers Care Stripper Preliminary Name Role Phone Mariluz Watts MD Primary Care Provider [phone] Reason for Visit * Reason Onset Date Comments Questions 07/07/2014 Encounter Details Date Type Department Care Team (Late st Contact Info) Description 07/07/2014 Telephone [place] [address] Kamala Mello, RN Questions Social History Tobacco Use Types Packs/Day Years [...] encounter Miscellaneous Notes * Telephone Encounter - Kamala Mello RN - 07/07/2014 2:26 PM EDT Hematology Oncology Nursing Note This message was called in: Saw Dr. Merlos last week, has her after visit summary. On her summary it lists aortic stenosis as one of her issues - she has no idea what that is or why it is on her AVS. It is in her problem list from a 07/25/12 that a PA from [facility] In [place] - she has aortic sclerosis, stage II dysfunction. She will call there for copy of report and follow up with her PCP. documented in this encounter Plan of Treatment Upcoming Encounters Date Type Department Care Team (Late st Contact Info) Description 11/16/2024 1:00 PM EST Office Visit General Surgery at [place] [phone] Paula Harris PA [facility] [place] [address] 01/26/2025 9:50 AM EDT Appointment Mammography/DXA at [place] [phone] Joan Deutsch GOLF COURSE MANAGER [facility] [place] [address] 01/26/2025 10:50 AM EDT Office [place] [phone] Joan Deutsch GOLF COURSE MANAGER [facility] [place] [address] documented as of this encounter Visit Diagnoses Not on filedocumented in this encounter Care Teams Stripper Preliminary Relationship Specialty Start Date End Date Mariluz Watts MD [address] [place] [address] [address] [facility] [address] [place] [address] PCP - General 08/22/10 documented as of this encounter
--- OUTSIDE RECORDS SUMMARY | 2024-05-18 19:59 | XMS_ITS | Encounter Summary ---
Author Organization [facility] [place] [address] Care Team Providers Care Body Welder Name Role Phone Mariluz Watts MD Primary Care Provider [phone] Reason for Visit * Reason Comments Follow-up Encounter Details Date Type Department Care Team (Late st Contact Info) Description 12/21/2014 4:30 PM EDT Follow-Up Hematology [place] [address] Abrahan Merlos MD [facility] [address] HEMATOLOGY/[place] [address] Breast cancer, stage 2, right Discharge Disposition: Home Social History Tobacco Use [...] Sign Reading Time Taken Comments Blood Pressure 132/66 12/21/2014 4:04 PM EDT Pulse 85 12/21/2014 4:04 PM EDT Temperature 36.8 ??C (98.2 ??F) 12/21/2014 4:04 PM ED T Respiratory Rate 18 12/21/2014 4:04 PM EDT Oxygen Saturation 97% 12/21/2014 4:04 PM EDT Inhaled Oxygen Concentration - - Weight 96.5 kg (212 lb 11.9 oz) 12/21/2014 4:04 PM EDT Height 166.6 cm (5' 5.59) 12/21/2014 4:04 PM ED T Body Mass Index 34.77 12/21/2014 4:04 PM EDT documented in this encounter Patient Instructions * Patient Instructions* Abrahan Merlos MD - 12/21/2014 4:37 PM EDT The liver tests are normal, the mammograms look fine, and I don't see any evidence of breast cancerrecurrence. The bone density fell by about 4% at the wrist and by 2% at the spine. Since you are stopping anastrozole soon, I do not see any point in having you start a bone-building medicine such as fosamax. Go ahead and stop the anastrozole in April as you are planning. I will see you next in May, and we'll see whats better in the intervening month off the drug. documented in this encounter Progress Notes * Abrahan Merlos MD - 12/21/2014 4:58 PM EDT Subjective: Patient ID: Diamond Gaming is a 69 y.o. female with Stage II breast cancer, [...] thumb, wrists, feet, and ankles. Interval History: Diamond started prednisone in April 2013 for seronegative arthritis. She is taking a stable dose of prednisone at 5 mg daily, and she was unable to tolerate a taper of the prednisone back to 5 mg every other day last fall. She had a tough winter, her mother was diagnosed with CLL last fall and she within the past month. Diamond took care of her, and she is now packing up [employer]. She has a father with dementia. She stopped exercising this winter and she has regainedabout 17 pounds. She has increased pain and stiffness in her hands, lower back, hips, knees, and feet. She has hot flashes which do not disturb her, and she denies any vaginal dryness. She takes 2000units of Vitamin D daily. Review of Systems [...] well- developed and well-nourished. Her weight is up 5.3 kg over the past six months. HENT: Mouth/Throat: Oropharynx is clear and moist. [...] and affect. Vitals reviewed. The most recent mammograms from December 22, 2013 showed a stable fibroglandular pattern without significant change. There were post-surgical changes on the right. The breasts were predominantly fatty. The mammograms were repeated today, and the results are pending. Today's Dexa scan shows T scores of -1.4 in the lumbar spine (down from -1.2 in November 2012), and -1.8 in the left wrist (down from -1.4 in November 2012). Recent Results (from the past 24 hour(s)) HEPATIC FUNCTION PANEL Result Value Ref Range Total Protein 7.0 6.1 - 8.0 gm/dL Albumin 4.8 3.2 - 5.2 gm/dL AST 17 0 - 30 unit/L ALT 19 0 - 30 unit/L Alk Phos 84 40 - 104 unit/L Total Bilirubin 0.4 0.2 - 1.3 mg/dL Bili, Direct 0.1 0.0 - 0.3 mg/dL The most recent 25-hydroxy Vitamin D was 42 on December 22, 2013. Assessment and Plan: Ms. Gaming is doing well and has no evidence of breast cancer recurrence. The anastrozole has been complicated by worsening of her chronic arthralgias and of her vasomotor symptoms. She is having a flare of her arthralgias, due to inactivity, weight gain, the physical stress of caring for her mother, and anastrozole. She is not interested in another anastrozole holiday as she is so close to finishing, and prior anastrozole holidays have not helped her. She has had a moderate fall in her bone density over the past two years, due to anastrozole and to prednisone, but the pace of bone loss will decline when she stops the anastrozole, and I do not see a reason to start a bisphosphonate now. She will complete her course of anastrozole in April 2015. I will see her next in followup in May2015. Abrahan Merlos MD clinical team manager in Hematology-Oncology documented in this encounter Plan of Treatment Upcoming Encounters Date Type Department Care Team (Late st Contact Info) Description 11/16/2024 1:00 PM EST Office [place] [phone] Paula Harris PA [facility] [place] [address] 01/26/2025 9:50 AM EDT Appointment Mammography/DXA at [place] [phone] Joan Deutsch DRYWALL TAPER [facility] [place] [address] 01/26/2025 10:50 AM EDT Office [place] [phone] Joan Deutsch DRYWALL TAPER [facility] [place] [address] documented as of this encounter Procedures Procedure Name Priority Date/Time Associated Diagnosis Comments HEPATIC FUNCTION PANEL STAT 12/21/2014 1:27 PM EDT Breast cancer, stage 2, right documented in this encounter Results * Hepatic Function Panel (12/21/2014 1:27 PM EDT) Protein, Total 7.0 6.1 - 8.0 gm/dL CERNER MILLENNIUM Albumin 4.8 3.2 - 5.2 gm/dL CERNER MILLENNIUM Aspartate Aminotransferase 17 0 - 30 unit/L CERNER MILLENNIUM Alanine Aminotransferase 19 0 - 30 unit/L CERNER MILLENNIUM Alkaline Phosphatase 84 40 - 104 unit/L CERNER MILLENNIUM Bilirubin, Total 0.4 0.2 - 1.3 mg/dL CERNER MILLENNIUM Bilirubin, Direct 0.1 0.0 - 0.3 mg/dL CERNER MILLENNIUM Blood specimen (specimen) 12/21/2014 1:27 PM EDT 12/21/2014 1:32 PM EDT Narrative Resulting Agency Comment Spec In Lab Abrahan Merlos MD CHEMISTRY ORDERABLES [facility] documented in this encounter Visit Diagnoses Diagnosis Breast cancer, stage 2, right documented in this encounter Care Teams Body Welder Relationship Specialty Start Date End Date Mariluz Watts MD [address] [place] [address] PCP - General 08/22/10 documented as of this encounter
--- OUTSIDE RECORDS SUMMARY | 2024-05-18 19:59 | XMS_ITS | Encounter Summary ---
[place] [address] Care Team Providers Care Tank Setter Name Role Phone Mariluz Watts MD Primary Care Provider [phone] Reason for Visit * Reason Onset Date Comments Other 07/22/2014 Encounter Details Date Type Department Care Team (Late st Contact Info) Description 07/22/2014 Telephone [place] [address] Kimberly Ackerman RN Other Social History Tobacco Use Types Packs/Day Years [...] Telephone Encounter - Kimberly Ackerman RN - 07/22/2014 10:42 AM EDT Can you please let her know that Prednisone 5mg daily is fine. I am happy to write a new script if needed. Thank you, Scar I have called Diamond to let her know she can resume with 5 mg of Prednisone daily. * Telephone Encounter - Kimberly Ackerman RN - 07/22/2014 10:10 AM EDT Diamond calls today and reports that she has tried the prednisone 5 mg every other day A couple of times and it just does not work for her. She reports that she gets sore all over her body. She would like to go back to 5 mg daily and wanted to clear this with . Diamond is not able to get onto mydh due to computer problems. She is available by phone. documented in this encounter Plan of Treatment Upcoming Encounters Date Type Department Care Team (Late st Contact Info) Description 11/16/2024 1:00 PM EST Office Visit General Surgery at [place] [phone] Paula Harris PA [facility] [place] [address] 01/26/2025 9:50 AM EDT Appointment Mammography/[place] [phone] Joan Deutsch APRN [facility] [place] [address] 01/26/2025 10:50 AM EDT Office [place] [address] Joan Deutsch APRN [facility] [place] [address] documented as of this encounter Visit Diagnoses Not on filedocumented in this encounter Care Teams Tank Setter Relationship Specialty Start Date End Date Mariluz Watts MD [address] [place] [address] PCP - General 08/22/10 documented as of this encounter
--- OUTSIDE RECORDS SUMMARY | 2024-05-18 19:59 | XMS_ITS | Encounter Summary ---
Author Organization [facility] [place] [address] Care Team Providers Care Manager Erp Name Role Phone Mariluz Watts MD Primary Care Provider Reason for Visit * Reason Comments Osteoarthritis Encounter Details Date Type Department Care Team (Late st Contact Info) Description 08/19/2013 10:15 AM EST [place] [address] Scar Aviles II, [facility] [place] [address] Aromatase inhibitor-associated arthralgia (Primary Dx) Discharge Disposition: Home Social History [...] Sign Reading Time Taken Comments Blood Pressure 123/78 08/19/2013 10:28 AM EST Pulse 88 08/19/2013 10:28 AM EST Temperature 36.4 ??C (97.6 ??F) 08/19/2013 10:[address] Respiratory Rate - - Oxygen Saturation 98% 08/19/2013 10:28 AM EST Inhaled Oxygen Concentration - - Weight 101.6 kg (224 lb) 08/19/2013 10:28 AM EST Height 167.6 cm (5' 6) 08/19/2013 10:28 AM EST Body Mass Index 36.15 08/19/2013 10:28 AM EST documented in this encounter Progress Notes * Scar Aviles II, DO - 08/19/2013 10:37 AM EST Rheumatology Outpatient follow up Note History of Present Illness: Diamond Gaming is a 67 y.o. female who presents today for evaluation of polyarthralgias. She reports that since our last visit, she started the Plaquenil, and tolerated it initially. She then startedtrazodone 1 week after starting plaquenil and developed a rash. She saw a PA in her PCP's office who felt that the rash was secondary to the Plaquenil, and she stopped it, however she feels that the rash never really improved until she stopped the trazodone. She was given prednisone for the rash, and felt that her arthralgias were improved on prednisone 10 mg or above. I have asked her to continue 5 mg until her visit today, and she feels as though she is worsened on 5 mg. 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 She had been planning surgery for her foot, though the 12 week recovery period would now be difficult. Her rash is all but resolved, with a remaining small patch of erythema on her right lateral thorax. Given the increase of her MSK pain, she has increased her ibuprofen use. When she was on 10 mg of prednisone, she took very little ibuprofen. ROS: (-)fevers, (-)chills, CP, SOB, no red, hot, swollen joints. Physical Examination: BP 123/78 Pulse 88 Temp 36.4 ??C (97.6 ??F) (Oral) Ht 167.6 cm (5' 6) Wt 101.606 kg (224 lb) BMI 36.15 kg/m2 SpO2 98% General: AAOx3, NAD, pleasant woman sitting comfortably, easily able to get up to the exam table. HEENT: EOMI, PERRL, Mucous membranes are moist Skin: Small patch of erythema on the right lateral thorax Neck: Supple, no lymphadenopathy Cardiovascular: RR, (-)murmurs, rubs, or gallops. Lungs: Clear to auscultation bilaterally. (-)R/R/W Neuro: Alert and oriented x3. Strength 5/5 throughout. Extremities: Shoulders: FROM, non-tender to palpation. Elbows:FROM, (-)pain, (-)nodules, mild hyperextension -5 degrees b/l. Wrists: FROM, no swelling, non-tender Hands: No synovitis, no MCP compression tenderness, full claw and fist. (+)heberden's nodes. L handwith dupuytren's contracture Hips: Tender over the left greater trochanter - she is planning to visit with orthopedics for possible injection Knees: (-)effusions, non-tender ROM, (+)crepitus Ankles: FROM, non-tender, no swelling Laboratory Data: Negative inflammatory markers in 2011 Studies: 12/03/12 hand x-ray personally reviewed. No evidence of erosions, (+) OA changes Impression: Diamond Gaming is a 67 y.o. female who presents today with arthralgias without arthritis likely secondary to osteoarthritis which is worsened by her aromatase inhibitor. We discussed the possible options and given the uncertainty of a possible Plaquenil allergy, we have decided to continue with low-dose steroids. She feels that she had a significant improvement in her quality of life and her functional ability and she was on 10 mg of prednisone. We discussed the potential side effects, which are relatively small considering the significant benefit she has had. I recommended she return to 10 mg daily prednisone and over the next few weeks attempt to decrease to 7.5 mg daily and then decreaseto 5mg if possible. If this is not beneficial, we could again consider tramadol. Recommendations: OA / aromatase inhibitor arthralgias -Prednisone 10 mg once daily - Attempts to decrease to 7.5 mg daily after 2 weeks - Consider tramadol in the future We will plan to f/u in 3 months to look for efficacy or need to change therapy. CC: MARILUZ WATTS MD documented in this encounter Plan of Treatment Upcoming Encounters Date Type Department Care Team (Late st Contact Info) Description 11/16/2024 1:00 PM EST Office Visit General Surgery at [place] [phone] Paula Harris PA [facility] [place] [address] 01/26/2025 9:50 AM EDT Appointment Mammography/DXA at [place] [phone] Joan Deutsch APRN [facility] [place] [address] 01/26/2025 10:50 AM EDT Office Visit General Surgery at [place] [phone] Joan Deutsch, BELLY DANCER [facility] [place] [address] documented as of this encounter Visit Diagnoses Diagnosis Aromatase inhibitor-associated arthralgia- Primary Pain in joint, site unspecified documented in this encounter Care Teams Manager Erp Relationship Specialty Start Date End Date Mariluz Watts MD [address] [place] [address] [address] [place] [address] PCP - General 08/22/10 documented as of this encounter
--- OUTSIDE RECORDS SUMMARY | 2024-05-18 19:59 | XMS_ITS | Encounter Summary ---
[place] [address] Care Team Providers Care Planetarium Sky Show Technician Name Role Phone Mariluz Watts MD Primary Care Provider Encounter Details Date Type Department Care Team (Late st Contact Info) Description 02/24/2014 Telephone [place] [address] Kian Ervin MD [address] [place] [address] Social History Tobacco Use Types Packs/Day Years [...] encounter Miscellaneous Notes * Telephone Encounter - Charity Mathur RN - 02/24/2014 8:49 AM EDT Diamond called. I told her not to be overly concerned if the hip is clicking as long as it is not painful. She has an appointment next Saturday. * Telephone Encounter - Tori Chavez - 02/24/2014 8:32 AM EDT Where is your pain? NO PAIN, LEFT HIP IS CLICKING Did you have an injury?no Date of Injury: Have you had surgery on this body part?yes Date of Surgery: 07/22/12 Who was your surgeon? SARA PATIENT STATES SHE WAS [place]ING [place] OVER [place]END AND NOW HER LEFT HIP IS CLICKING. SHESTATES THAT IT IS NOT PAINFUL, JUST CLICKING. SHE IS SCHEDULED TO COME IN ON 03/01/14, BUT SHE WOULD LIKE TO SPEAK WITH A NURSE ABOUT THIS. SHE CAN BE REACHED AT [phone]. On a scale of 1 to 10, where would you rate your pain: N/A I will noa this as urgent, the nurses continuously monitor their messages and will call as soon asthey are able. documented in this encounter Plan of Treatment Upcoming Encounters Date Type Department Care Team (Late st Contact Info) Description 11/16/2024 1:00 PM EST Office Visit [place] [phone] Paula Harris PA [facility] [place] [address] 01/26/2025 9:50 AM EDT Appointment Mammography/[place] [phone] Joan Deutsch APRN [facility] [place] [address] 01/26/2025 10:50 AM EDT Office Visit [place] [phone] Joan Deutsch APRN [facility] [place] [address] documented as of this encounter Visit Diagnoses Not on filedocumented in this encounter Care Teams Planetarium Sky Show Technician Relationship Specialty Start Date End Date Mariluz Watts MD [address] [place] [address] PCP - General 08/22/10 documented as of this encounter
--- OUTSIDE RECORDS SUMMARY | 2024-05-18 19:59 | XMS_ITS | Encounter Summary ---
Author Organization [facility] [place] [address] Care Team Providers Care Educational Psychologist Name Role Phone Mariluz Watts MD Primary Care Provider [phone] Encounter Details Date Type Department Care Team (Latest Contact Info) Description 07/13/2014 7:18 AM EDT - 07/13/2014 11:59 PM EDT Hospital Encounter XRay at [address] [place] [address] CLINIC, Kian Stoen MD [address] [place] [address] S/P Left Anterior ARSLAN- 07/22/12 (Dr. Ervin) [...] Refills Start Date End Date LACTOBAC CMB #[id number] ORAL Take 1 tablet by mouth daily. [...] to rough spots on thighs. 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 leaf size picker both scripts 02/02/14 400 g 10 [...] PM EST Office [place] [address] Paula Harris PA [facility] [place] [address] 01/26/2025 9:50 AM EDT Appointment Mammography/[place] [phone] Joan Deutsch, [facility] [place] [address] 01/26/2025 10:50 AM EDT Office [place] [phone] Joan Deutsch, [facility] [place] [address] documented as of this encounter Procedures Procedure Name Priority Date/Time Associated Diagnosis Comments XR PELVIS AND LATERAL HIP Routine 07/13/2014 7:31 AM EDT documented in this encounter Results * (ABNORMAL) XR pelvis and lateral hip (07/13/2014 7:31 AM EDT) Anatomical Region Laterality Modality Pelvis, Hip N/A Radiographic Crystal ging 07/13/2014 7:31 AM EDT Addenda Addendum on 07/16/2014 2:32 PM EDT Addendum Begins Impression 1 should read: 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 Addendum Ends Narrative 07/13/2014 9:43 AM EDT Examination PELVIS+LATERAL HIP/LEFT Clinical History s/p left ant ARSLAN Comparison Radiographs of the pelvis and bilateral hips, 12/14/2013. Technique AP pelvis radiograph and frog-leg lateral radiograph of the left hip. Findings Bilateral noncemented total hip arthroplasties are unchanged in position, both femoral heads projecting centrally over the acetabular cups. Intact cerclage fixation of the proximal left femur is again seen. ??There is no periprosthetic fracture or interval periprosthetic radiolucencies. ??Degenerative changes of the symphysis pubis are again noted. ??A small rectangular density projects over the inferior right iliac bone seen on the AP pelvis radiograph, not seen on prior radiographs dating back to 01/25/2005, query if this is external to the patient. Impression 1. ??Unchanged appearance of bilateral total knee arthroplasties, no acute complications noted. 2. ??Unexpected finding: ??Small rectangular density projecting over the inferior right ilium, not seen on the immediate prior study of 12/14/2013 nor on prior radiographs dating back to 2004. ??This may be external to the patient. ??Suggest repeat dedicated pelvis radiograph for further evaluation. Resulting Agency Comment Unexpected Finding Procedure Note Thu Bo MD / [facility], UNSIGNED REPORT - 07/16/2014 Examination PELVIS+LATERAL HIP/LEFT Clinical History s/p left ant ARSLAN Comparison Radiographs of the pelvis and bilateral hips, 12/14/2013. Technique AP pelvis radiograph and frog-leg lateral radiograph of the left hip. Findings Bilateral noncemented total hip arthroplasties are unchanged in position,both femoral heads projecting centrally over the acetabular cups. Intactcerclage fixation of the proximal left femur is again seen. There is noperiprosthetic fracture or interval periprosthetic radiolucencies. Degenerative changesof the symphysis pubis are again noted. A small rectangular density projectsover the inferior right iliac bone seen on the AP pelvis radiograph, not seenon prior radiographs dating back to 01/25/2005, query if this is external tothe patient. Impression 1. 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 2. Unexpected finding: Small rectangular density projecting over theinferior right ilium, not seen on the immediate prior study of 12/14/2013 nor onprior radiographs dating back to 2004. This may be external to the patient.Suggest repeat dedicated pelvis radiograph for further evaluation. Kian Ervin MD IMG DX ORDERABLES documented in this encounter Visit Diagnoses Diagnosis S/P Left Anterior ARSLAN- 07/22/12 (Dr. Ervin) Hip joint replacement by other means documented in this encounter Care Teams Educational Psychologist Relationship Specialty Start Date End Date Mariluz Watts MD [address] [facility] [place] [address] PCP - General 08/22/10 documented as of this encounter
--- OUTSIDE RECORDS SUMMARY | 2024-05-18 19:59 | XMS_ITS | Encounter Summary ---
Author Organization [facility] [place] [address] Care Team Providers Care Flaring Machine Operator Name Role Phone Mariluz Watts MD Primary Care Provider [phone] Reason for Visit * Reason Comments Follow-up Encounter Details Date Type Department Care Team (Late st Contact Info) Description 06/28/2015 8:00 AM EDT Follow-Up [place]ology [place] [address] Abrahan Merlos MD [facility] DR HEMATOLOGY/[place] [address] Breast cancer, stage 2, right Discharge Disposition: [...] Sign Reading Time Taken Comments Blood Pressure 138/74 06/28/2015 8:11 AM EDT Pulse 74 06/28/2015 8:11 AM EDT Temperature 36.6 ??C (97.9 ??F) 06/28/2015 8:11 AM ED T Respiratory Rate 18 06/28/2015 8:11 AM EDT Oxygen Saturation 100% 06/28/2015 8:11 AM EDT Inhaled Oxygen Concentration - - Weight 96.3 kg (212 lb 4.9 oz) 06/28/2015 8:11 A M EDT Height 166.7 cm (5' 5.63) 06/28/2015 8:11 AM ED T Body Mass Index 34.65 06/28/2015 8:11 AM EDT documented in this encounter Patient Instructions * Patient Instructions* Abrahan Merlos MD - 06/28/2015 8:21 AM EDT Your exam looks good and I don't see any evidence of breast cancer recurrence. I will see you next in six months, and I will coordinate that appointment with Coral Ly. After that I will see you once yearly with Coral. Let me know if the pain in the right chest wall gets worse or extends to other places. It is most likely arthritis in the joint between the rib and the breast bone. [phone]. Next bone density in November 2016. documented in this encounter Progress Notes * Abrahan Merlos MD - 06/28/2015 8:20 AM EDT Subjective: Patient ID: Diamond Gaming [...] no differently since she stopped anastrozole. She takes a stable dose of prednisone at 5 mg daily for seronegative arthritis, and she has pain and stiffness in her neck, left basilar joint, wrists, lower back, left hip, knees, ankles, and feet. She also takes ibuprofen for the arthralgias, up to four times daily. She has a new site of pain in the right upper chest wall which started two weeks ago after she exerted herself. She has stable hot flashes which do not disturb her, and she denies any vaginal dryness. She takes 2000 units of Vitamin D daily, she walks her dog 40 minutes a day, and she goes to an exercise class twice a week where she does stretching and balance exercises. Review of Systems She denies breast pain or a palpable breast mass, a cough, shortness of breath, nausea, vomiting, diarrhea, constipation, headaches, double vision, pain, redness, or swelling in her lower extremities, or any other sites of joint or skeletal pain. The remainder of her review of systems is negative. Objective: Physical Exam Constitutional: She is oriented to person, place, and time. She appears well- developed and well-nourished. Her weight is down 0.2 kg over the past six months, and her BP is 138/74. HENT: Mouth/Throat: Oropharynx is clear and moist. [...] breast, and there is no axillary adenopathy. She has nothing palpable at the area in the chest wall where she is tender, and the area is at the costo-chondral junction. Abdominal: Soft. She exhibits no distension and [...] reviewed. The most recent mammograms from December 21, 2014 showed a stable fibroglandular pattern without significant change. There were post-surgical changes bilaterally. The breasts were of scattered density. The most recent Dexa scan from December 21, 2014 showed T scores of -1.4 in the lumbar spine (down from -1.2 in November 2012), and -1.8 in the left wrist (down from -1.4 in November 2012). Labs from December 21, 2014 showed an albumin of 4.8, bili 0.4, alk phos 84, AST 17, and ALT 19. The most recent 25-hydroxy Vitamin D was 42 on December 22, 2013. Assessment and Plan: Ms. Gaming is doing well and has no evidence of breast cancer recurrence. She has now completed fiveyears of anastrozole, and given the extent of her arthralgias on anastrozole, I have not recommended extension of the course of treatment. She has focal pain in the right chest wall near the costochondral junction which may be due to costochondritis or to muscular pain. She will contact me if the pain worsens or extends to other sites within the chest wall. I will see her next in followup in six months, and I will coordinate that appointment with Coral Ly. Abrahan Merlos MD career portals teacher in Hematology-Oncology documented in this encounter Plan of Treatment Upcoming Encounters Date Type Department Care Team (Late st Contact Info) Description 11/16/2024 1:00 PM EST Office Visit General Surgery at [place] [phone] Paula Harris PA [facility] [address] 01/26/2025 9:50 AM EDT Appointment Mammography/[place] [address] Joan Deutsch, [facility] [place] [address] 01/26/2025 10:50 AM EDT Office Visit General Surgery at [place] [phone] Joan Deutsch [facility] [address] documented as of this encounter Visit Diagnoses Diagnosis Breast cancer, stage 2, right documented in this encounter Care Teams Flaring Machine Operator Relationship Specialty Start Date End Date Mariluz Watts MD [address] [place] [address] [facility] [address] [place] [address] PCP - General 08/22/10 documented as of this encounter
--- OUTSIDE RECORDS SUMMARY | 2024-05-18 19:59 | XMS_ITS | Encounter Summary ---
[place] [address] Care Team Providers Care Link Trainer Maintenance Man Name Role Phone Mariluz Watts MD Primary Care Provider [phone] Reason for Visit * Reason Onset Date Comments Questions 02/26/2014 Encounter Details Date Type Department Care Team (Late st Contact Info) Description 02/26/2014 [place] [address] Kian Ervin MD [address] [place] [address] Questions Social History Tobacco Use Types Packs/Day [...] Telephone Encounter - Charity Mathur RN - 02/26/2014 10:53 AM EDT Diamond called back. She has been walking her dog and her left medial is sore, swollen and clicking. She is asking for an x ray to be taken prior to her visit next week. Order entered. * Telephone Encounter - Charity Mathur RN - 02/26/2014 10:21 AM EDT Called and left a message, what knee is the problem? Is the click painful or just noisy. * Telephone Encounter - Debbi Bello - 02/26/2014 9:49 AM EDT Patient called and reports she has a click in her knee and she discussed this with Kiarra. She would like to know if Kiarra wants her to have an x-ray of her knee prior to her appointment with Alban on 03/01/14 since she has to come from [facility]. Please call her back at [phone]. documented in this encounter Plan of Treatment Upcoming Encounters Date Type Department Care Team (Late st Contact Info) Description 11/16/2024 1:00 PM EST Office [place] [address] Paula Harris PA [facility] [place] [address] 01/26/2025 9:50 AM EDT Appointment Mammography/[place] [phone] Joan Deutsch APRN [facility] [place] [address] 01/26/2025 10:50 AM EDT Office [place] [address] Joan Deutsch APRN [facility] [place] [address] documented as of this encounter Results * XR Joint Team alignment AP LAT Schuss Anson (03/01/2014 8:56 AM EDT) Anatomical Region Laterality Modality N/A Radiographic Crystal ging 03/01/2014 8:56 AM EDT Narrative 03/01/2014 11:11 AM EDT Examination JOINT TEAM STANDING ALIGNMENT AP LAT SCHUSS SKYLINE/LEFT Clinical History left knee pain swelling and clicking Comparison None Technique Separate images of the pelvis, knees and feet were acquired in the AP projection with the patient standing. In addition to routine views of the knee, these images were stitched together to form a composite image of the pelvis and legs allowing for evaluation of lower extremity alignment in the weight bearing position. AP standing, PA Schuss, axial both knees and lateral left knee. Findings Left knee ?? There is moderate to severe narrowing of the medial joint compartment. The medial compartment displays sclerosis of the articular surfaces and osteophytes. ??There is spurring of the medial left tibial spine. Osteophytes involve the left patellofemoral compartment. An ossific body projects in the suprapatellar space and may represent a loose body. ?? Right knee There is mild narrowing narrowing of the medial joint compartment. ??The tibial spines are spurred. ??There is narrowing and osteophytes involving the right patellofemoral space. ?? Standing alignment ?? There is normal alignment of the right leg and mild medial deviation of the weight-bearing axis of the left leg. ??Incidental note is made of the presence of bilateral hip prostheses. ?? Impression There is osteoarthritis of the knees bilaterally with most severe involvement of the left medial joint compartments and the right patellofemoral compartment. Procedure Note Cb Carrion MD - 03/01/2014 Examination JOINT TEAM STANDING ALIGNMENT AP LAT SCHUSS SKYLINE/LEFT Clinical History left knee pain swelling and clicking Comparison None Technique Separate images of the pelvis, knees and feet were acquired in the AP projection with the patient standing. In addition to routine views of theknee, these images were stitched together to form a composite image of thepelvis and legs allowing for evaluation of lower extremity alignment in the weightbearing position. AP standing, PA Schuss, axial both knees and lateral left knee. Findings Left knee There is moderate to severe narrowing of the medial joint compartment. The medial compartment displays sclerosis of the articular surfaces and osteophytes. There is spurring of the medial left tibial spine.Osteophytes involve the left patellofemoral compartment. An ossific body projects inthe suprapatellar space and may represent a loose body. Right knee There is mild narrowing narrowing of the medial joint compartment. Thetibial spines are spurred. There is narrowing and osteophytes involving theright patellofemoral space. Standing alignment There is normal alignment of the right leg and mild medial deviation ofthe weight-bearing axis of the left leg. Incidental note is made of thepresence of bilateral hip prostheses. Impression There is osteoarthritis of the knees bilaterally with most severeinvolvement of the left medial joint compartments and the right patellofemoralcompartment. Kian Ervin MD IMG DX ORDERABLES documented in this encounter Visit Diagnoses Diagnosis Left knee pain- Primary Pain in joint, lower leg Left knee pain Pain in joint, lower leg documented in this encounter Care Teams Link Trainer Maintenance Man Relationship Specialty Start Date End Date Mariluz Watts MD [address] [place] [address] PCP - General 08/22/10 documented as of this encounter
--- OUTSIDE RECORDS SUMMARY | 2024-05-18 19:59 | XMS_ITS | Encounter Summary ---
[place] [address] Care Team Providers Care Security Expert Name Role Phone Mariluz Watts MD Primary Care Provider [phone] Reason for Visit * Reason Comments Breast Cancer Encounter Details Date Type Department Care Team (Late st Contact Info) Description 07/02/2014 9:00 AM EDT Follow-Up H[place]ology [place] [address] Abrahan Merlos MD [facility] DR HEMATOLOGY/[place] [address] Breast cancer, stage 2, right; Osteopenia Discharge Disposition: Home Social History Tobacco [...] Sign Reading Time Taken Comments Blood Pressure 139/72 07/02/2014 8:53 AM EDT Pulse 69 07/02/2014 8:53 AM EDT Temperature 36.7 ??C (98.1 ??F) 07/02/2014 8:53 AM ED T Respiratory Rate 18 07/02/2014 8:53 AM EDT Oxygen Saturation 98% 07/02/2014 8:53 AM EDT Inhaled Oxygen Concentration - - Weight 91.6 kg (201 lb 15.1 oz) 07/02/2014 8:53 AM EDT Height 167.4 cm (5' 5.91) 07/02/2014 8:53 AM ED T Body Mass Index 32.69 07/02/2014 8:53 AM EDT documented in this encounter Patient Instructions * Patient Instructions* Abrahan Merlos MD - 07/02/2014 9:15 AM EDT Your exam looks good and I don't see any evidence of breast cancer recurrence. You can try to cut the prednisone back to 5 mg every other day. This may help you keep the weight off. If the pain flares on the lower dose, go back up to 5 mg once daily. I will see you next in November with Coral Ly, and we';ll do the mammograms, Dexa scan., and labs that day. After that visit, I will cut back on our appointments to once per year. documented in this encounter Progress Notes * Abrahan Merlos MD - 07/02/2014 11:07 AM EDT Subjective: Patient ID: Diamond Gaming [...] wrists, feet, and ankles. Interval History: She started plaquenil and prednisone in April 2013 for seronegative arthritis. She is taking a stable dose of prednisone at 5 mg daily, she stopped the plaquenil, and she has not yet tried to cut the prednisone back to 5 mg every other day. Diamond currently has pain in her left hip, left thumb, the right foot, and knees. She has multiple hot flashes each day, but she denies anyvaginal dryness, and she does not wish to take anything to control her hot flashes. She started an Atkins-like diet, she is riding an exercise bicycle and walking five hours each week, and she has lost 30 pounds over the past four months. She takes 2000 units of Vitamin [...] developed and well-nourished. Her weight is down 13.9 kg over the past six months. HENT: [...] affect. The most recent mammograms from December 22, 2013 showed a stable fibroglandular pattern without significant change. She is s/p reduction surgery bilaterally. The breasts were predominantly fatty. The most recent Dexa scan from December 09, 2012 showed T scores of -1.2 in the lumbar spine (down from -1.1 in September 2010), and -1.5 in the left wrist. No prior study had been done of the left wrist. The most recent labs from December 22, 2013 showed an albumin of 4.5, bilirubin 0.3, alk phos 74, AST 26, ALT 31, and a 25-hydroxy Vitamin D of 42. Assessment and Plan: Ms. Gaming is doing well and has no evidence of breast cancer recurrence. The anastrozole has been complicated by worsening of her chronic arthralgias and of her vasomotor symptoms. She does not wish to modify her dosing of citalopram or add any new agents to control her vasomotor symptoms. She is willing to continue the anastrozole for another 11 months, and she does not think her arthralgias areany worse now than at her baseline prior to the start of anastrozole. I suggested cutting back on the prednisone to 5 mg every other day, as suggested by Dr. Aviles, and she is willing to do so. She will return to 5 mg once daily if her pain flares on the lower dose of prednisone. I will see hernext in followup in November 2014, I will order an HFP and a repeat Dexa scan, and that appointment will be coordinated with her mammograms and with Coral Ly. She will complete her course of anastrozole in April 2015. Abrahan Merlos MD mathematics faculty member in Hematology-Oncology documented in this encounter Plan of Treatment Upcoming Encounters Date Type Department Care Team (Late st Contact Info) Description 11/16/2024 1:00 PM EST Office [place] [phone] Paula Harris PA [facility] [place] [address] 01/26/2025 9:50 AM EDT Appointment Mammography/[place] [phone] Joan Deutsch PIG HANDLER [facility] [place] [address] 01/26/2025 10:50 AM EDT Office [place] [phone] Joan Deutsch PIG HAND[employer]ER [facility] [place] [address] documented as of this encounter Results * Hepatic Function Panel (12/21/2014 1:27 PM EDT) Pathologist [facility] Protein, Total 7.0 6.1 - 8.0 gm/dL CERNER MILLENNIUM Albumin 4.8 3.2 - 5.2 gm/dL CERNER MILLENNIUM Aspartate Aminotransferase 17 0 - 30 unit/L CERNER MILLENNIUM Alanine Aminotransferase 19 0 - 30 unit/L CERNER MILLENNIUM Alkaline Phosphatase 84 40 - 104 unit/L CERNER MILLENNIUM Bilirubin, Total 0.4 0.2 - 1.3 mg/dL CERNER MILLENNIUM Bilirubin, Direct 0.1 0.0 - 0.3 mg/dL CERNER MILLLEVI Blood specimen (specimen) 12/21/2014 1:27 PM EDT 12/21/2014 1:32 PM EDT Narrative Resulting Agency Comment Spec In Lab Abrahan Merlos MD CHEMISTRY ORDERABLES [facility] TOP[facility]E documented in this encounter Visit Diagnoses Diagnosis Breast cancer, stage 2, right Osteopenia Disorder of bone and cartilage, unspecified documented in this encounter Care Teams Security Expert Relationship Specialty Start Date End Date Mariluz Watts MD [address] [place] [address] PCP - General 08/22/10 documented as of this encounter
--- OUTSIDE RECORDS SUMMARY | 2024-05-18 19:59 | XMS_ITS | Encounter Summary ---
[place] [address] Care Team Providers Care Phytopathologist Name Role Phone Mariluz Watts MD Primary Care Provider [phone] Reason for Visit * Reason Comments Follow Up Surgery Encounter Details Date Type Department Care Team (Late st Contact Info) Description 12/22/2013 1:45 PM EDT Follow-Up [place] [address] Bella Ly APRN [facility] [place] [address] History of breast cancer (Primary Dx) Discharge Disposition: Home Social History [...] Progress Notes * Bella Ly APRN - 12/22/2013 1:49 PM EDT Diamond is a 67 y.o[address] Pt of Dr Marquez who returns [...] carcinoma with lobular features Tumor Grade: Intermediate [place]-Lcwfo-Xjmnvcfoxd Score: 7 Tubular Differentiation: 3 Mitotic Rate: [...] sentinel nodes: 2 (Specimen A - Right [place] node) No. positive for carcinoma: 1 (H&E) [...] chemotherapy and proceeded to whole breast xrt. This was complicated by some fatiguebut generally, she handled it quite well. She is now taking arimidex. She has no complaints today in the clinic. Energy level is improving. She has no headaches, sob, cough, abd pain. She has chronicarthritis which is not particularly exacerbated by arimidex. ROM of the right arm is nearly intact.No lymphedema. She was seen by Dr Merlos earlier today. On exam, well appearing and in nad. [...] present No Date of last follow up 12/22/13 A/P Doing well without evidence of recurrence or metastatic disease. Tolerating arimidex. Plan follow up in 1 year with bilateral mammogram. She will see Dr. Merlos in the interval time frame. documented in this encounter Plan of Treatment Upcoming Encounters Date Type Department Care Team (Late st Contact Info) Description 11/16/2024 1:00 PM EST Office Visit [place] [address] Paula Harris PA [facility] GENERAL SURGERY [place], [place] [id number] 01/26/2025 9:50 AM EDT Appointment Mammography/[place] [address] Joan Deutsch, [facility] [place] [address] 01/26/2025 10:50 AM EDT Office Visit [place] [address] Joan Deutsch, [facility] [address] documented as of this encounter Visit Diagnoses Diagnosis History of breast cancer- Primary Personal history of malignant neoplasm of breast documented in this encounter Care Teams Phytopathologist Relationship Specialty Start Date End Date Mariluz Watts MD [address] [place] [address] PCP - General 08/22/10 documented as of this encounter
--- OUTSIDE RECORDS SUMMARY | 2024-05-18 19:59 | XMS_ITS | Encounter Summary ---
Author Organization [facility] [place] [address] Care Team Providers Care Saddle And Harness Maker Name Role Phone Mariluz Watts MD Primary Care Provider [phone] Encounter Details Date Type Department Care Team (Latest Contact Info) Description 12/14/2013 7:51 AM EDT - 12/14/2013 11:59 PM EDT Hospital Encounter XRay at [address] [place] [address] H/O bilateral hip replacements Social History Tobacco Use Types Packs/Day Years [...] Refills Start Date End Date LACTOBAC CMB #[id number] ORAL Take 1 tablet by mouth daily. 12/24/2012 05/01/2018 clarithromycin (BIAXIN) 500 mg Tablet Twice a day 12/15/201204/24 predniSONE (DELTASONE) 10 mg tablet Take 1 [...] Take 20 mg by mouth daily. 05/16/2016 metroNIDAZOLE (METROGEL) 1 % gel Apply topically daily. 45 g 3 12/31/2012 02/01/2014 ibuprofen (ADVIL;MOTRIN) 600 mg tablet Take 600 mg by mouth 4 times daily. 11/06/2018 cholecalciferol, Vitamin D3, (VITAMIN D) 1,000 unit Tab tablet Take 1 tablet by mouth daily. 60 tablet 5 07/25/2012 09/07/2022 documented as of this encounter Plan of Treatment Upcoming Encounters Date Type Department Care Team (Late st Contact Info) Description 11/16/2024 1:00 PM EST Office Visit General Surgery at [place] [phone] Paula Harris PA [facility] [place] [address] 01/26/2025 9:50 AM EDT Appointment Mammography/[place] [address] Joan Deutsch APRN [facility] [place] [address] 01/26/2025 10:50 AM EDT Office Visit [place] [phone] Joan Deutsch APRN [facility] [place] [address] documented as of this encounter Procedures Procedure Name Priority Date/Time Associated Diagnosis Comments XR PELVIS AP AND 2 VIEWS BOTH HIPS Routine 12/14/2013 8:24 AM EDT documented in this encounter Results * XR pelvis AP and 2 views both hips (12/14/2013 8:24 AM EDT) Anatomical Region Laterality Modality Pelvis, Hip N/A Radiographic Crystal ging 12/14/2013 8:24 AM EDT Narrative 12/14/2013 9:27 AM EDT Examination AP PELVIS AND TWO VIEWS BOTH HIPS/BILAT Clinical History both hip ARSLAN. ??Annual Comparison July 13, 2013. Technique AP both hips, AP and lateral of the chest. Findings Bilateral hip prostheses are present. ??The left hip prosthesis contains a cerclage wire. ??The prostheses are well positioned without complication or change in appearance since the prior study. Impression Bilateral hip prostheses without complication. Procedure Note Cb Carrion MD - 12/14/2013 Examination AP PELVIS AND TWO VIEWS BOTH HIPS/BILAT Clinical History both hip ARSLAN. Annual Comparison July 13, 2013. Technique AP both hips, AP and lateral of the chest. Findings Bilateral hip prostheses are present. The left hip prosthesis contains a cerclage wire. The prostheses are well positioned without complication or change in appearance since the prior study. Impression Bilateral hip prostheses without complication. Kian Ervin MD IMG DX ORDERABLES documented in this encounter Visit Diagnoses Diagnosis H/O bilateral hip replacements Hip joint replacement by other means documented in this encounter Care Teams Saddle And Harness Maker Relationship Specialty Start Date End Date Mariluz Watts MD [address] [facility] [place] [address] PCP - General 08/22/10 documented as of this encounter
--- OUTSIDE RECORDS SUMMARY | 2024-05-18 19:59 | XMS_ITS | Encounter Summary ---
[place] [address] Care Team Providers Care Plane Tender Name Role Phone Mariluz Watts MD Primary Care Provider [phone] Reason for Visit * Reason Onset Date Comments Other 08/17/2013 Pt called [facility] for follow appt with Dr. Ervin or an associate provider to discuss her left hip pain. S/P bilat ARSLAN by IMT. Encounter Details Date Type Department Care Team (Late st Contact Info) Description 08/17/2013 [place] [phone] Bertha Zhu, RN Other (Pt called looking for follow appt with Dr. Ervin or an associate provider to discuss her left hip pain. S/P bilat ARSLAN by IMT.) Social History Tobacco Use Types Packs/Day Years [...] encounter Miscellaneous Notes * Telephone Encounter - Bertha Zhu RN - 08/17/2013 11:36 AM EST Surgeries: 07/22/12 left anterior ARSLAN and 03/06/[address] Ervin. Patient called looking for follow an office visit with Dr. Ervin or an associate provider to discuss her left hip pain. She questions bursitis in that hip and wants to be evaluated. She stated, The left hip is getting worse. It hurts when I bend the knee getting in and out of the car, and lifting the leg. I want to come in and see someone to evaluate this. I will see an associate provider as long as they keep Dr. Ervin involved. Patient transferred to the call center to schedule an appointment. She is aware that Dr. Ervin's clinic day is on Saturday. She was going to leave a message for someone to call back. documented in this encounter Plan of Treatment Upcoming Encounters Date Type Department Care Team (Late st Contact Info) Description 11/16/2024 1:00 PM EST Office [place] [address] Paula Harris PA [facility] [place] [address] 01/26/2025 9:50 AM EDT Appointment Mammography/DXA at [place] [phone] Joan Deutsch APRN [facility] [place] [address] 01/26/2025 10:50 AM EDT Office Visit General Surgery at [place] [phone] Joan Deutsch APRN [facility] [place] [address] documented as of this encounter Visit Diagnoses Not on filedocumented in this encounter Care Teams Plane Tender Relationship Specialty Start Date End Date Mariluz Watts MD [address] [address] [place] [address] PCP - General 08/22/10 documented as of this encounter
--- OUTSIDE RECORDS SUMMARY | 2024-05-18 19:59 | XMS_ITS | Encounter Summary ---
[place] [address] Care Team Providers Care Body Art Technician Name Role Phone Mariluz Watts MD Primary Care Provider [phone] Reason for Visit * Reason Comments Follow Up Surgery Encounter Details Date Type Department Care Team (Late st Contact Info) Description 12/21/2014 1:45 PM EDT Follow-[place] [address] Bella Ly APRN [facility] [place] [address] History of breast cancer Discharge Disposition: Home [...] Progress Notes * Bella Ly APRN - 12/21/2014 1:31 PM EDT Diamond is a 69 y.o[address] Pt of Dr Marquez who returns [...] carcinoma with lobular features Tumor Grade: Intermediate Cpmnud-Lypqi-Guoqctzzcz Score: 7 Tubular Differentiation: 3 Mitotic Rate: [...] sentinel nodes: 2 (Specimen A - Right [place] node) No. positive for carcinoma: 1 (H&E) No. with IHC (+) cells only: 0 (cells not seen by H&E, see Note*) No. negative for carcinoma: 1 (both H&E and IHC For positive nodes: Largest kristi deposit 0.2 cm Extranodal extension Absent Estrogen/Progestin receptors: Performed on blocks C2 and C11 ER immunoreactivity: Positive (see Diagnostic hanna*) WA immunoreactivity: Positive (see Diagnostic hanna*) HER2/shonda expression [...] the right arm is nearly intact.No lymphedema. Her mom earlier this month at 87 after being diagnosed with CLL.She cared for her and is feeling better.Dad is in hospice care and is 93. On exam, well appearing and in nad. [...] present No Date of last follow up 12/21/14 A/P Doing well without evidence of recurrence or metastatic disease. Tolerating arimidex. Plan follow up in 1 year with bilateral mammogram. She will see Dr. Merlos in the interval time frame. documented in this encounter Plan of Treatment Upcoming Encounters Date Type Department Care Team (Late st Contact Info) Description 11/16/2024 1:00 PM EST Office [place] [address] Paula Harris PA [facility] [place] [address] 01/26/2025 9:50 AM EDT Appointment Mammography/[place] [address] Joan Deutsch, [facility] [place] [address] 01/26/2025 10:50 AM EDT Office [place] [phone] Joan Deutsch, [facility] [place] [address] documented as of this encounter Visit Diagnoses Diagnosis History of breast cancer Personal history of malignant neoplasm of breast documented in this encounter Care Teams Body Art Technician Relationship Specialty Start Date End Date Mariluz Watts MD [address] [place] [address] PCP - General 08/22/10 documented as of this encounter
--- OUTSIDE RECORDS SUMMARY | 2024-05-18 19:59 | XMS_ITS | Encounter Summary ---
[place] [address] Care Team Providers Care Solution Developer Name Role Phone Mariluz Watts MD Primary Care Provider [phone] Reason for Visit * Reason Comments Follow Up Surgery left ant sharmin 2 Encounter Details Date Type Department Care Team (Latest Contact Info) Description 07/13/2014 8:00 AM EDT Office [place] [address] Kian Ervin MD [address] [place] [address] Primary osteoarthritis of both knees (Primary Dx); H/O total hip arthroplasty, bilateral; Hip flexor tendinitis, left Discharge Disposition: Home Social History Tobacco Use [...] Sign Reading Time Taken Comments Blood Pressure 123/87 07/13/2014 8:18 AM EDT Pulse 72 07/13/2014 8:18 AM EDT Temperature - - Respiratory Rate - - Oxygen Saturation - - Inhaled Oxygen Concentration - - Weight 91.2 kg (201 lb) 07/13/2014 8:18 AM EDT Height 167.6 cm (5' 6) 07/13/2014 8:18 AM EDT Body Mass Index 32.44 07/13/2014 8:18 AM EDT documented in this encounter Progress Notes * Kian Ervin MD - 07/13/2014 8:53 AM EDT Diamond is 2 years after her left anterior hip replacement, 9 years after the right posterior total hip arthroplasty. She generally doing well, she intentionally lost almost 30 pounds and is probably a loose body weight that she has been out for a while. Right hip is doing absolutely perfectly, no pain or discomfort. Left hip has always been plagued by groin discomfort, likely attributable to rectus femoris pain. Her hip flexion both seated and supine remained difficult on the left side and she often has to use her hand to help prevent movement. However she is doing well, she's retired, looking after her 3-year-old grandchild, and also after her 87-year-old mother. Uses no assistive devices,doesn't take any pain medications, sleeps well at night. Her knees bother her occasionally, especially the left side, but not enough to be of any significant bother. Review of systems: All negative except for as outlined above. Questionnaire Responses: myD-H Hip & Knee 07/13/2014 [...] 21-68) 38.8 Arthritis Ladder - Hip - Radiographs demonstrate excellent implant position bilaterally with no subsidence, no evidence of bone loss or osteolysis. Examination: Walks with a stable gait, no limp. She looks well, mood is pleasant, balance is normal, she's oriented. Leg lengths are equal, range of motion of the hips is excellent with 125 flexion, internal rotation 30, external rotation 50, abduction 45. Left hip flexion actively is weak, especially while sitting. Sensation is normal in the lower extremities. On palpating the tensor and rectus on the left side, there is some significant scar tissue there although both muscles are palpable andmobile. Examination of knees revealed full extension and excellent flexion but with bilateral crepitation. Plan: If she generally doing well, next visit in 5 years with new x-rays. She will contact me if her knees start bothering her, radiographically left was worse. documented in this encounter Plan of Treatment Upcoming Encounters Date Type Department Care Team (Late st Contact Info) Description 11/16/2024 1:00 PM EST Office [place] [phone] Paula Harris PA [facility] [place] [address] 01/26/2025 9:50 AM EDT Appointment Mammography/[place] [phone] Joan Deutsch APRN [facility] [place] [address] 01/26/2025 10:50 AM EDT Office [place] [phone] Joan Deutsch APRN [facility] [place] [address] documented as of this encounter Visit Diagnoses Diagnosis Primary osteoarthritis of both knees- Primary Primary localized osteoarthrosis, lower leg H/O total hip arthroplasty, bilateral Hip flexor tendinitis, left documented in this encounter Care Teams Solution Developer Relationship Specialty Start Date End Date Mariluz Watts MD [address] [place] [address] PCP - General 08/22/10 documented as of this encounter
--- OUTSIDE RECORDS SUMMARY | 2024-05-18 19:59 | XMS_ITS | Encounter Summary ---
Author Organization [facility] [place] [address] Care Team Providers Care Road Manager Name Role Phone Mariluz Watts MD Primary Care Provider [phone] Encounter Details Date Type Department Care Team (Late st Contact Info) Description 03/01/2014 Orders [place] [address] Maddi Esparza, TELEPHOTO INSTALLER Social History Tobacco Use Types Packs/Day Years [...] PM EST Office [place] [phone] Paula Harris, PA [facility] [place] [address] 01/26/2025 9:50 AM EDT Appointment Mammography/[place] [phone] Joan Deutsch [facility] [place] [address] 01/26/2025 10:50 AM EDT Office [place] [phone] Joan Deutsch, [facility] [place] [address] documented as of this encounter Visit Diagnoses Not on filedocumented in this encounter Care Teams Road Manager Relationship Specialty Start Date End Date Mariluz Watts MD [address] [place] [address] [address] [facility] [address] [place] [address] PCP - General 08/22/10 documented as of this encounter
--- OUTSIDE RECORDS SUMMARY | 2024-05-18 19:59 | XMS_ITS | Encounter Summary ---
Author Organization [facility] [place] [address] Care Team Providers Care Music Therapy Specialist Name Role Phone Mariluz Watts MD Primary Care Provider [phone] Encounter Details Date Type Department Care Team (Latest Contact Info) Description 12/22/2013 11:52 AM EDT - 12/22/2013 11:59 PM EDT Hospital Encounter [place] [address] CLINIC, DR KATARINA Merlos, Abrahan Chavarria MD [facility] HEMATOLOGY/[place] [address] Discharge Disposition: Home Social History Tobacco Use [...] Refills Start Date End Date LACTOBAC CMB #[id number] ORAL Take 1 tablet by mouth daily. 12/24/2012 05/01/2018 clarithromycin (BIAXIN) 500 mg Tablet Twice a day 12/15/201204/24 predniSONE (DELTASONE) 10 mg tablet Take 1 tablet by mouth daily. Please mail. 30 tablet 3 08/19/2013 06/28/2015 amoxicillin-clavulanat e (AUGMENTIN) 500-125 mg per tablet Take 4 tablets by mouth as needed. Reported on 12/11/2016 03/16/2013 05/01/2018 anastrozole (ARIMIDEX) 1 mg tabletIndications:Kimberly schmidt cancer, stage 2 Take 1 tablet by [...] PM EST Office [place] [phone] [facility] [place] [place] [address] 01/26/2025 9:50 AM EDT Appointment Mammography/[place] [phone] [facility] [place] [place] [address] 01/26/2025 10:50 AM EDT Office [place] [address] Joan Deutsch, [facility] [place] [address] documented as of this encounter Visit Diagnoses Not on filedocumented in this encounter Care Teams Music Therapy Specialist Relationship Specialty Start Date End Date Mariluz Watts MD [address] [place] [address] PCP - General 08/22/10 documented as of this encounter
--- OUTSIDE RECORDS SUMMARY | 2024-05-18 19:59 | XMS_ITS | Encounter Summary ---
[place] [address] Care Team Providers Care Supervisor Fur Dressing Name Role Phone Mariluz Watts MD Primary Care Provider [phone] Reason for Visit * Reason Onset Date Comments Other 08/19/2013 Encounter Details Date Type Department Care Team (Late st Contact Info) Description 08/19/2013 Telephone Hematology [place] [address] Gemini Felton RN Other Social History Tobacco Use Types [...] encounter Miscellaneous Notes * Telephone Encounter - Gemini Felton, RN - 08/19/2013 3:28 PM EST Called [facility] outpatient pharmacy to confirm that they received a script for anastrozole 1mg dispense#90 with 3 refills in May. Called Diamond to inform her that she has refills and should call [facility] Outpatient pharmacy. * Telephone Encounter - Gemini Felton RN - 08/19/2013 3:20 PM EST Message copied by GEMINI FELTON on SatAug 19, 2013 3:20 PM ------ Message from: HATTIE RODRIGUEZ Created: SatAug 19, 2013 8:18 AM Regarding: anastrozole refill Anastrozole, 1mg, 90 day, to [facility] and [facility] will mail to her home. [phone]. Called pharmacy script was filled today. Called Diamond to inform her that on 06/12/13 her script was generated for one year. Dispense #90 with 3 refills. [facility] Outpatient pharmacy filled a refill today. documented in this encounter Plan of Treatment Upcoming Encounters Date Type Department Care Team (Late st Contact Info) Description 11/16/2024 1:00 PM EST Office Visit General Surgery at [place] [phone] Paula Harris PA [facility] [place] [address] 01/26/2025 9:50 AM EDT Appointment Mammography/DXA at [place] [phone] Joan Deutsch APRN [facility] [place] [address] 01/26/2025 10:50 AM EDT Office [place] [phone] Joan Deutsch APRN [facility] [place] [address] documented as of this encounter Visit Diagnoses Not on filedocumented in this encounter Care Teams Supervisor Fur Dressing Relationship Specialty Start Date End Date Mariluz Watts MD [address] [place] [address] PCP - General 08/22/10 documented as of this encounter
--- OUTSIDE RECORDS SUMMARY | 2024-05-18 19:59 | XMS_ITS | Encounter Summary ---
[place] [address] Care Team Providers Care Take Out Waiter Name Role Phone Mariluz Watts MD Primary Care Provider [phone] Encounter Details Date Type Department Care Team (Late st Contact Info) Description 12/22/2013 12:04 PM EDT - 12/22/2013 11:59 PM EDT Hospital [place] [address] Social History Tobacco Use Types Packs/Day Years [...] Refills Start Date End Date LACTOBAC CMB #[id number] ORAL Take 1 tablet by mouth daily. [...] PM EST Office [place] [phone] Paula Harris PA [facility] [place] [place] [address] 01/26/2025 9:50 AM EDT Appointment Mammography[place] [phone] Joan Deutsch APRN [facility] [place] [address] 01/26/2025 10:50 AM EDT Office [place] [phone] Joan Deutsch APRN [facility] [place] [address] documented as of this encounter Procedures Procedure Name Priority Date/Time Associated Diagnosis Comments MAMMO SCREENING CAD BILATERAL Routine 12/22/2013 12:23 PM EDT documented in this encounter Results * Mammo digital bilateral Screening with CAD (12/22/2013 12:23 PM EDT) Anatomical Region Laterality Modality Breast Bilateral Mammography 12/22/2013 12:2 3 PM EDT Narrative 12/23/2013 2:49 PM EDT BILATERAL MAMMOGRAPHY ?? REASON FOR EXAM: Screening ?? TECHNIQUE: Cranio-caudal (CC) and mediolateral oblique (MLO) views of both breasts obtained with direct digital capture. The exam was evaluated by CAD Version 8.3.17. ?? FINDINGS: This is a negative mammogram (ACR Category 1). There is a stable fibroglandular pattern without significant change as compared to prior studies. There is no mammographic evidence of cancer. ? The breasts are predominantly fatty. ? Reduction surgery has been performed. ? There are post-surgical changes in the Right breast. ? CONCLUSION ?? This is a NEGATIVE mammogram (ACR Category 1). Routine screening mammography is recommended with the frequency dependent on the patient's age and breast cancer risk factors. ?? A letter has been sent to this patient by [facility]. Procedure Note Nichol Dial MD - 12/23/2013 BILATERAL MAMMOGRAPHY REASON FOR EXAM: Screening TECHNIQUE: Cranio-caudal (CC) and mediolateral oblique (MLO) views of both breasts obtained with direct digital capture. The exam was evaluated byCAD Version 8.3.17. FINDINGS: This is a negative mammogram (ACR Category 1). There is a stable fibroglandular pattern without significant change as compared to priorstudies. There is no mammographic evidence of cancer. The breasts are predominantly fatty. Reduction surgery has been performed. There are post-surgical changes in the Right breast. CONCLUSION This is a NEGATIVE mammogram (ACR Category 1). Routine screeningmammography is recommended with the frequency dependent on the patient's age and breastcancer risk factors. A letter has been sent to this patient by the [facility]. Abrahan Merlos MD IMG MAMMO ORDERABLES documented in this encounter Visit Diagnoses Not on filedocumented in this encounter Care Teams Take Out Waiter Relationship Specialty Start Date End Date Mariluz Watts MD [address] [place] [address] PCP - General 08/22/10 documented as of this encounter
--- OUTSIDE RECORDS SUMMARY | 2024-05-18 19:59 | XMS_ITS | Encounter Summary ---
Author Organization [facility] [place] [address] Care Team Providers Care Coil Placer Name Role Phone Mariluz Watts MD Primary Care Provider [phone] Encounter Details Date Type Department Care Team (Late st Contact Info) Description 02/17/2014 10:30 AM EDT [place] [address] [facility] [address] OA (osteoarthritis) (Primary Dx); Aromatase inhibitor use Discharge Disposition: Home Social History Tobacco Use [...] Sign Reading Time Taken Comments Blood Pressure 128/80 02/17/2014 10:35 AM EDT Pulse 91 02/17/2014 10:35 AM EDT Temperature 36.9 ??C (98.5 ??F) 02/17/2014 10:35 AM E DT Respiratory Rate - - Oxygen Saturation 97% 02/17/2014 10:35 AM EDT Inhaled Oxygen Concentration - - Weight 104.8 kg (231 lb) 02/17/2014 10:35 AM EDT Height 5.7 cm (2.26) 02/17/2014 10:35 AM EDT Body Mass Index 69846.6 02/17/2014 10:35 AM EDT documented in this encounter Progress Notes * Scar Aviles II, DO - 02/17/2014 10:41 AM EDT Rheumatology Outpatient follow up Note History of Present Illness: Diamond Gaming is a 68 y.o. female who presents today for f/u for OA and aromatase inhibitor arthralgias. Decreased prednisone to 5mg and she started moving more to try to lose weight (increased walking) and she tolerated the decreased prednisone dose. She has been seeing PT for hip pain and is going to see ortho for L hip injection which was replaced. She is back to using ibuprofen 600mg PO TID-QID which she had previously done for some time. She continues to be quite active and watches her granddaughter 5 days per week and is caring for her mother. ROS: (-)fevers, (-)chills, CP, SOB, no red, hot, swollen joints. Physical Examination: BP 128/80 Pulse 91 Temp 36.9 ??C (98.5 ??F) (Oral) Ht 5.7 cm (2.26) Wt 104.781 kg (231 lb) BMI 31,147.74 kg/m2 SpO2 97% General: AAOx3, NAD, pleasant woman sitting comfortably, [...] claw and fist. (+)heberden's nodes. L handwith dupuytren's, though no contracture Laboratory Data: Negative inflammatory markers in 2011 Studies: 12/03/12 hand x-ray personally reviewed. No evidence of erosions, (+) OA changes Impression: Diamond Gaming is a 68 y.o. female who presents today for followup of arthralgias secondary to osteoarthritis and her aromatase inhibitor. We will plan to taper the prednisone and look for changes inher symptoms. She will alternate every other day with 5mg and none. We discussed that her NSAID usewas probably too high, and that we can consider tramadol to help with her pain, even if we start with just at night. She is connected to our patient portal and will let me know how she does over the next few weeks/months. Recommendations: OA / aromatase inhibitor arthralgias -Prednisone 5mg every other day, then off. - Consider tramadol in the future F/U PRN CC: MARILUZ WATTS MD documented in this encounter Plan of Treatment Upcoming Encounters Date Type Department Care Team (Late st Contact Info) Description 11/16/2024 1:00 PM EST Office [place] [phone] Paula Harris PA [facility] [place] [address] 01/26/2025 9:50 AM EDT Appointment Mammography/[place] [address] Joan Deutsch APRN [facility] [place] [address] 01/26/2025 10:50 AM EDT Office [place] [address] Joan Deutsch APRN [facility] [place] [address] documented as of this encounter Visit Diagnoses Diagnosis OA (osteoarthritis)- Primary Osteoarthrosis, unspecified whether generalized or localized, unspecified site Aromatase inhibitor use Use of aromatase inhibitors documented in this encounter Care Teams Coil Placer Relationship Specialty Start Date End Date Mariluz Watts MD [address] [place] [address] PCP - General 08/22/10 documented as of this encounter
--- OUTSIDE RECORDS SUMMARY | 2024-05-18 19:59 | XMS_ITS | Encounter Summary ---
[place] [address] Care Team Providers Care Oil Scout Name Role Phone Mariluz Watts MD Primary Care Provider [phone] Reason for Visit * Reason Onset Date Comments Other 12/25/2013 Encounter Details Date Type Department Care Team (Late st Contact Info) Description 12/25/2013 [place] [address] Jesusita Valdes RN Other Social History Tobacco Use Types [...] encounter Miscellaneous Notes * Telephone Encounter - Jesusita Valdes RN - 12/29/2013 9:11 AM EDT Diamond calls and leaves a message for Dr. Aviles that her Rosacea is getting better. She is still taking the 5 mg per day of Prednisone. She plans to stay on the 5 mg. Will forward to Dr. Aviles. * Telephone Encounter - Jesusita Valdes RN - 12/25/2013 4:20 PM EDT Diamond calls today stating that her Rosacea is worse than it has been, she is currently on 5 mg of Prednisone daily. Reading note I see she was to cut down to 7.5 mg daily. Diamond states she wasn't able to cut the tablets in half and then half again so she went right to 5 mg tablets. Upon asking ifemmett felt this was perhaps why her Rosacea is flaring, around mouth nose and chin, she states no. She states the flare was already happening before she cut down. States she went to her Oncologist and he felt the Prednisone was the cause of the flare. She is questioning if she should just discontinuethe Prednisone. Will forward to Dr. Aviles. Let Diamond know not to discontinue at this time, await call back from myself or Dr. Aviles. Aware it will likely be Saturday before she hears back. documented in this encounter Plan of Treatment Upcoming Encounters Date Type Department Care Team (Late st Contact Info) Description 11/16/2024 1:00 PM EST Office [place] [address] [facility] [place] [address] 01/26/2025 9:50 AM EDT Appointment Mammography/[place] [phone] [facility] [place] [address] 01/26/2025 10:50 AM EDT Office [place] [address] [facility] [place] [address] documented as of this encounter Visit Diagnoses Not on filedocumented in this encounter Care Teams Oil Scout Relationship Specialty Start Date End Date Mariluz Watts MD [address] [place] [address] [address] [place] [address] PCP - General 08/22/10 documented as of this encounter
--- OUTSIDE RECORDS SUMMARY | 2024-05-18 19:59 | XMS_ITS | Encounter Summary ---
Author Organization [facility] [place] [address] Care Team Providers Care Chute Loader Name Role Phone Mariluz Watts MD Primary Care Provider [phone] Encounter Details Date Type Department Care Team (Latest Contact Info) Description 12/21/2014 1:21 PM EDT - 12/21/2014 11:59 PM EDT Hospital Encounter [place]ematology [place] [address] CLINIC, DR KATARINA Merlos, Abrahan Chavarria MD [facility] HEMATOLOGY/[place] [address] Discharge Disposition: Home Social History Tobacco Use [...] Refills Start Date End Date LACTOBAC CMB #5-[id number] ORAL Take 1 tablet by mouth daily. [...] rough spots on thighs. 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 pick up attendant both scripts 02/02/14 400 g 10 02/01/2014 [...] PM EST Office [place] [phone] Paula Harris PA [facility] [place] [address] 01/26/2025 9:50 AM EDT Appointment Mammography[place] [address] Joan Deutsch, [facility] [place] [address] 01/26/2025 10:50 AM EDT Office [place] [phone] Joan Deutsch, [facility] [place] [address] documented as of this encounter Visit Diagnoses Not on filedocumented in this encounter Care Teams Chute Loader Relationship Specialty Start Date End Date Mairluz Watts MD [address] [place] [address] PCP - General 08/22/10 documented as of this encounter
--- OUTSIDE RECORDS SUMMARY | 2024-05-18 19:59 | XMS_ITS | Encounter Summary ---
Author Organization [facility] [place] [address] Care Team Providers Care Dress Fitter Name Role Phone Mariluz Watts MD Primary Care Provider [phone] Encounter Details Date Type Department Care Team (Latest Contact Info) Description 07/13/2013 2:16 PM EDT - 07/13/2013 11:59 PM EDT Hospital Encounter XRay at [address] [place] [address] Status post hip replacement Social History Tobacco Use Types [...] Refills Start Date End Date LACTOBAC CMB #[id number] ORAL Take 1 tablet by mouth daily. 12/24/2012 05/01/2018 clarithromycin (BIAXIN) 500 mg Tablet Twice a day 12/15/201204/24 amoxicillin-clavulanat e (AUGMENTIN) 500-125 mg per tablet Take 4 tablets by mouth as needed. Reported on 12/11/2016 03/16/2013 05/01/2018 predniSONE (DELTASONE) 5 mg tablet Take 1 tablet by mouth daily. 30 tablet 3 07/10/2013 11/25/2013 anastrozole (ARIMIDEX) 1 mg tabletIndications:Kimberly schmidt cancer, stage 2 Take 1 tablet by mouth nightly. 90 tablet 3 06/12/2013 07/02/2014 citalopram (CELEXA) 20 mg tablet Take 20 mg by mouth daily. 05/16/2016 hydroCODone-acetaminop hen (VICODIN) 5-500 mg per tablet Take 1 tablet by mouth. Takes 1-2 TID PRN 08/12/2013 Zinc 50 mg Tab Take 1 tablet by mouth daily. 08/19/2013 metroNIDAZOLE (METROGEL) 1 % gel Apply topically daily. 45 g 3 12/31/2012 02/01/2014 lactobac cmb #3-[id number] (PROBIOTIC & ACIDOPHILUS) 300-250 million cell-mg Cap Take 1 tablet by mouth daily. 08/12/2013 UNABLE TO FIND reishi 800mg Med Name: 08/12/2013 ibuprofen (ADVIL;MOTRIN) 600 mg tablet Take 600 mg by mouth 4 times daily. 11/06/2018 MAG OXIDE-VIT D3-TUMERIC RT XT ORAL Take 1 tablet by mouth daily. 08/12/2013 multivitamin (THERAGRAN) tablet Take 1 tablet by mouth daily. 08/12/2013 cholecalciferol, Vitamin D3, (VITAMIN D) 1,000 unit Tab tablet Take 1 tablet by mouth daily. 60 tablet 5 07/25/2012 09/07/2022 senna-docusate (PERICOLACE) 8.6-50 mg per tablet Take 1-4 tablets by mouth 2 times daily. 60 tablet 3 07/25/2012 08/12/2013 Lysine 1,000 mg Tab Take 1 tablet by mouth as needed. 08/12/2013 documented as of this encounter Plan of Treatment Upcoming Encounters Date Type Department Care Team (Late st Contact Info) Description 11/16/2024 1:00 PM EST Office Visit [place] [address] Paula Harris, PA [facility] GENERAL [place] [address] 01/26/2025 9:50 AM EDT Appointment Mammography/[place] [phone] Joan Deutsch APRN [facility] [address] [place] [address] 01/26/2025 10:50 AM EDT Office Visit [place] [phone] Joan Deutsch, GE [facility] [address] [place] [address] documented as of this encounter Procedures Procedure Name Priority Date/Time Associated Diagnosis Comments XR PELVIS AP AND 2 VIEWS BOTH HIPS Routine 07/13/2013 2:23 PM EDT Hip joint replacement by other means documented in this encounter Results * XR pelvis AP and 2 views both hips (07/13/2013 2:23 PM EDT) Anatomical Region Laterality Modality Pelvis, Hip N/A Radiographic Crystal ging 07/13/2013 2:23 PM EDT Narrative 07/13/2013 5:01 PM EDT Examination AP PELVIS AND TWO VIEWS BOTH HIPS/BILAT Clinical History bilateral TKA- pain Comparison 04/21/2013. Technique AP pelvis and 2 views both hips findings: Findings The patient is status post bilateral total hip replacement. ??These are non cemented. ??No heterotopic bone formation noted. No postop complication noted. ?? Impression No postop complications status post bilateral total hip replacement. ?? Procedure Note Devaughn Barber MD - 07/13/2013 Examination AP PELVIS AND TWO VIEWS BOTH HIPS/BILAT Clinical History bilateral TKA- pain Comparison 04/21/2013. Technique AP pelvis and 2 views both hips findings: Findings The patient is status post bilateral total hip replacement. These are non cemented. No heterotopic bone formation noted. No postop complicationnoted. Impression No postop complications status post bilateral total hip replacement. Kian Ervin MD IMG DX ORDERABLES documented in this encounter Visit Diagnoses Diagnosis Status post hip replacement Hip joint replacement by other means documented in this encounter Care Teams Dress Fitter Relationship Specialty Start Date End Date Mariluz Watts MD [address] [place] [address] PCP - General 08/22/10 documented as of this encounter
--- OUTSIDE RECORDS SUMMARY | 2024-05-18 19:59 | XMS_ITS | Encounter Summary ---
Author Organization [facility] [place] [address] Care Team Providers Care Rail Doweling Machine Operator Name Role Phone Mariluz Watts MD Primary Care Provider [phone] Encounter Details Date Type Department Care Team (Late st Contact Info) Description 11/25/2013 10:30 AM EST [place] [address] Scar Aviles II, [facility] [place] [address] Aromatase inhibitor-associated arthralgia (Primary Dx); OA (osteoarthritis) Discharge Disposition: Home Social History Tobacco Use [...] Sign Reading Time Taken Comments Blood Pressure 150/87 11/25/2013 10:22 AM EST Pulse 69 11/25/2013 10:22 AM EST Temperature 36.6 ??C (97.8 ??F) 11/25/2013 10:[address] Respiratory Rate - - Oxygen Saturation 99% 11/25/2013 10:22 AM EST Inhaled Oxygen Concentration - - Weight 105 kg (231 lb 6.4 oz) 11/25/2013 10:22 A M EST Height 168.9 cm (5' 6.5) 11/25/2013 10:22 AM ES T Body Mass Index 36.79 11/25/2013 10:22 AM EST documented in this encounter Progress Notes * Scar Aviles II, DO - 11/25/2013 10:53 AM EST Rheumatology Outpatient follow up Note History of Present Illness: Diamond Gaming is a 67 y.o. female who presents today for f/u for OA and aromatase inhibitor arthralgias. She notes that since our last visit, she was unable to taper the prednisone below 10. Her mother recently fell, and she became the primary caregiver for both of her parents. Additionally, she had a fall a few weeks ago her right leg, thus has not been exercising frequently, and has been reluctant to taper the prednisone. She denies any red, hot, swollen joints, and finds that her hands are better with the prednisone, and her right foot is intermittently sore. She is perhaps 50% better since starting the prednisone and has definitely felt it is worth taking. She continues on ibuprofen 600mg PO QID without no GI upset and is not interested in decreasing this. She has tried aleve and hasnot found it effective and tylenol has not been helpful. ROS: (-)fevers, (-)chills, CP, SOB, no red, hot, swollen joints. She continues to have a mild erythematous rash around her right breast, and will be trying to see dermatology Physical Examination: BP 150/87 Pulse 69 Temp 36.6 ??C (97.8 ??F) (Oral) Ht 168.9 cm (5' 6.5) Wt 104.962 kg (231lb 6.4 oz) BMI 36.79 kg/m2 SpO2 99% General: AAOx3, NAD, pleasant woman sitting comfortably, easily able to get up to the exam table. HEENT: EOMI, PERRL, Mucous membranes are moist Skin: Small patch of erythema on the right posterior thorax Neck: Supple, no lymphadenopathy Cardiovascular: RR, (-)murmurs, rubs, or gallops. Lungs: Clear to auscultation bilaterally. (-)R/R/W Neuro: Alert and oriented x3. Strength 5/5 throughout. Extremities: Shoulders: FROM, non-tender to palpation. Elbows:FROM, (-)pain, (-)nodules, mild hyperextension -5 degrees b/l. Wrists: FROM, no swelling, non-tender Hands: No synovitis, no MCP compression tenderness, full claw and fist. (+)heberden's nodes. L handwith dupuytren's, though no contracture Knees: (-)effusions, non-tender ROM, (+)crepitus Ankles: FROM, non-tender, no swelling Laboratory Data: Negative inflammatory markers in 2011 Studies: 12/03/12 hand x-ray personally reviewed. No evidence of erosions, (+) OA changes Impression: Diamond Gaming is a 67 y.o. female who presents today for followup of arthralgias secondary to osteoarthritis and her aromatase inhibitor. She would like to taper the prednisone, though wait until after her mothers surgery in the near future. We will plan to decrease to 7.5 mg daily and then decrease to 5mg if possible. If this is not beneficial, we could again consider tramadol. Recommendations: OA / aromatase inhibitor arthralgias -Prednisone 10 mg once daily - Decrease to 7.5 mg daily - Consider tramadol in the future We will plan to f/u in 3 months to look for efficacy or need to change therapy. CC: MARILUZ WATTS MD documented in this encounter Plan of Treatment Upcoming Encounters Date Type Department Care Team (Late st Contact Info) Description 11/16/2024 1:00 PM EST Office [place] [address] Paula Harris, [facility] [place] [address] 01/26/2025 9:50 AM EDT Appointment Mammography/[place] [phone] Joan Deutsch, [facility] [place] [address] 01/26/2025 10:50 AM EDT Office [place] [phone] Joan Deutsch, [facility] [place] [place] [address] documented as of this encounter Visit Diagnoses Diagnosis Aromatase inhibitor-associated arthralgia- Primary Pain in joint, site unspecified OA (osteoarthritis) Osteoarthrosis, unspecified whether generalized or localized, unspecified site documented in this encounter Care Teams Rail Doweling Machine Operator Relationship Specialty Start Date End Date Mariluz Watts MD [address] [place] [address] PCP - General 08/22/10 documented as of this encounter
--- OUTSIDE RECORDS SUMMARY | 2024-05-18 19:59 | XMS_ITS | Encounter Summary ---
Author Organization [facility] [place] [address] Care Team Providers Care Cnc Set Up Operator Name Role Phone Mariluz Watts MD Primary Care Provider [phone] Reason for Visit * Reason Comments Rosacea Encounter Details Date Type Department Care Team (Late st Contact Info) Description 02/01/2014 1:00 PM EDT Follow-Up Dermatology at [facility] [address] [place] [address] Angeles Ferro MD [facility] [place] [address] Rosacea; SK (seborrheic keratosis); Sebaceous hyperplasia of face Discharge Disposition: Home Social History Tobacco Use [...] this encounter Patient Instructions * Patient Instructions* Adela Vegas LPN - 02/01/2014 1:15 PM EDT documented in this encounter Progress Notes * Santo Iniguez III, MD - 02/01/2014 6:50 PM EDT I directly supervised Dr. Ferro during this office visit. Dr. Ferro presented the history and physical exam to me. I then saw and examined this patient with Dr. Ferro. We reviewed the history and pertinent details and I confirmed the physical findings. I agree with the details of the history and physical exam as documented in Dr. Ferro's note. SANTO INIGUEZ III, MD Staff Physician * Angeles Ferro MD - 02/01/2014 1:11 PM EDT DERMATOLOGY - ESTABLISHED PATIENT FOLLOW-UP Diamond Gaming Date of service: 02/01/2014 : 1945 Dermatology Resident Note: Angeles Ferro MD Chief Problem: Chief Complaint Patient presents with ??? Rosacea Ms. Diamond Gaming is a 68 y.o. female. This is an established patient, last seen by Dr. Willingham in December 2012. HPI: Ms. Gaming presents for follow-up of rosacea and sebaceous hyperplasia. Her skin seems to be under good control. She is no longer on oral erythromycin. She still uses topical metronidazole. She has been on prednisone for a long time now due to arthritis. There are a few new papules on her face, somepruritic. She would like further LN2 therapy as this helps with the pruritus. She also has irritatin g scaly spots on her bilateral upper thighs. No treatments tried. Skin History: Rosacea Sebaceous hyperplasia (no hx colon cancer, negative C'scope 02/2012) Medical History: Patient Active Problem List Diagnosis Code ??? Anxiety associated with depression 300.4 ??? 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 Diverticulosis 562.10 ??? Degenerative joint disease 715.90 ??? Breast cancer, stage 2 174.9 ??? Rosacea 695.3 ??? GI bleeding 578.9 ??? Hip pain 719.45 ??? S/P Right ARSLAN 03/06/2005 ([facility]) V43.64 ??? S/P Left Anterior ARSLAN- 07/22/12 (Dr. Ervin) V43.64 ??? S/P tubal ligation V26.51 ??? Osteoarthritis of left knee 715.96 ??? 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 Aortic valve sclerosis 424.1 ??? Postoperative anemia due to acute blood loss 285.1 ??? Dupuytren's contracture 728.6 ??? Status post hip replacement V43.64 ??? 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 Hymenoptera Allergenic Extract Anaphylaxis Bee Stings ??? Tetracyclines Anaphylaxis ??? Plaquenil (Hydroxychloroquine) Rash and Other (See Comments) Hallucinations ??? Trazodone Rash and Other (See Comments) Unsure if hallucinations occur with this or plaquenil. 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 - Skin: As per HPI; no other skin concerns. Examination: - Constitutional: Patient was alert, well-appearing and in no noticeable distress. - Skin: An abbreviated skin exam was performed; this includes: face and legs. Specific skin findings: 1. Scattered 0.2-0.3cm yellowish papules with central umbilication on the face. 2. Multiple 0.4-1 cm, brown-black papules/plaques with waxy stuck on appearance,scattered on face, and legs. 3. Erythema on central face. Diagnosis/Assessment/Treatment Plan: 1. Sebaceous Hyperplasia-patient reassured. However, due to symptoms, offered repeated LN2 to bothersome areas. The patient agreed to the procedure after discussing risks/benefits/alternatives. Procedure Note: Procedure: Destruction of lesion(s) with cryotherapy. Number: Location: as above Discussed procedure and expectations including risks (including risk of hypopigmentation) and benefits. Verbal consent obtained. Frozen with LN2, 15-30 second thaw time, TWICE. There were no complications; the patient tolerated the procedure well. Post-procedure expectations and wound care were reviewed. 2. Stucco keratoses - offered prescription for Lac-hydrin 12% cream for legs to help with dry, rough nature. Patient reassured. 3. Rosacea-under good control. Will refill topical metronidazole. No need for oral antibiotics at current. RTC prm. Instructed to call for questions/concerns. Angeles Ferro MD Resident in Dermatology [facility] Patient seen and evaluated with staff sight effects specialist: Santo Iniguez MD Section of Dermatology [facility] Note initiated by: ADELA VEGAS LPN: I am documenting this encounter acting as the scribe for and in the presence of Dr. Angeles Ferro MD I performed the above scribed service and agree with the accuracy of the documentation in this encounter. documented in this encounter Plan of Treatment Upcoming Encounters Date Type Department Care Team (Late st Contact Info) Description 11/16/2024 1:00 PM EST Office [place] [address] Paula Harris PA [facility] [place] [address] 01/26/2025 9:50 AM EDT Appointment Mammography/[place] [phone] Joan Deutsch, [facility] [place] [address] 01/26/2025 10:50 AM EDT Office [place] [phone] Joan Deutsch, [facility] [place] [address] documented as of this encounter Visit Diagnoses Diagnosis Rosacea SK (seborrheic keratosis) Other seborrheic keratosis Sebaceous hyperplasia of face Other specified disease of sebaceous glands documented in this encounter Care Teams Cnc Set Up Operator Relationship Specialty Start Date End Date Mariluz Watts MD [address] [place] [address] PCP - General 08/22/10 documented as of this encounter
--- OUTSIDE RECORDS SUMMARY | 2024-05-18 19:59 | XMS_ITS | Encounter Summary ---
[place] [address] Care Team Providers Care Vaccine Customer Representative Name Role Phone Mariluz Watts MD Primary Care Provider [phone] Encounter Details Date Type Department Care Team (Late st Contact Info) Description 07/02/2014 Orders Only Hematology [place] [address] Abrahan Merlos MD [facility] DR HEMATOLOGY/[place] [address] Breast cancer, stage 2, right (Primary Dx) Social History Tobacco Use Types [...] PM EST Office [place] [address] Paula Harris PA [facility] [place] [address] 01/26/2025 9:50 AM EDT Appointment Mammography/DXA at [place] [phone] Joan Deutsch, [facility] [place] [address] 01/26/2025 10:50 AM EDT Office Visit General Surgery at [place] [phone] Joan Deutsch, [facility] [place] [address] documented as of this encounter Visit Diagnoses Diagnosis Breast cancer, stage 2, right- Primary documented in this encounter Care Teams Vaccine Customer Representative Relationship Specialty Start Date End Date Mariluz Watts MD [address] [facility] [facility] [place] [address] PCP - General 08/22/10 documented as of this encounter
--- OUTSIDE RECORDS SUMMARY | 2024-05-18 19:59 | XMS_ITS | Encounter Summary ---
Author Organization [facility] [place] [address] Care Team Providers Care Cleaner Laboratory Equipment Name Role Phone Mariluz Watts MD Primary Care Provider [phone] Encounter Details Date Type Department Care Team (Late st Contact Info) Description 03/01/2014 8:33 AM EDT - 03/01/2014 11:59 PM EDT Hospital Encounter XRay at [address] [place] [address] Left knee pain Social History Tobacco Use Types Packs/Day [...] Refills Start Date End Date LACTOBAC CMB #[id number] ORAL Take 1 tablet by mouth daily. [...] to rough spots on thighs. 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 cotton picker operator both scripts 02/02/14 400 g 10 [...] PM EST Office [place] [address] Paula Harris PA [facility] [place] [address] 01/26/2025 9:50 AM EDT Appointment Mammography/[place] [address] Kovatch, Joan L, [facility] [place] [address] 01/26/2025 10:50 AM EDT Office [place] [address] Joan Deutsch [facility] [place] [address] documented as of this encounter Procedures Procedure Name Priority Date/Time Associated Diagnosis Comments XR JOINT TEAM ALIGNMENT AP LAT SCHUSS SKYLINE Routine 03/01/2014 8:56 AM EDT Left knee pain documented in this encounter Results * XR Joint Team alignment AP LAT Schuss [place] (03/01/2014 8:56 AM EDT) Anatomical Region Laterality [...] this encounter Visit Diagnoses Diagnosis Left knee pain Pain in joint, lower leg documented in this encounter Care Teams Cleaner Laboratory Equipment Relationship Specialty Start Date End Date Mariluz Watts MD [address] [facility] [place] [address] PCP - General 08/22/10 documented as of this encounter
--- OUTSIDE RECORDS SUMMARY | 2024-05-18 20:00 | XMS_ITS | Encounter Summary ---
[place] [address] Care Team Providers Care Fast Food Server Name Role Phone Mariluz Watts MD Primary Care Provider [phone] Reason for Visit * Reason Onset Date Comments Other 05/25/2013 Follow Up Encounter Details Date Type Department Care Team (Late st Contact Info) Description 05/25/2013 Telephone [place] [address] Kimberly Ackerman RN Other (Follow Up) Social History Tobacco Use Types Packs/Day Years [...] encounter Miscellaneous Notes * Telephone Encounter - Scar Aviles II, DO - 05/25/2013 5:04 PM EDT Called pt to discuss her prednisone. She notes that she has been doing very well on 10mg of prednisone and she would like to continue this for now. She will report back in a few weeks. If she is doing well, then we may consider gradually tapering to the lowest effective dose. She has started the plaquenil and I recommended she continue with this for now. She will call me with issues. * Telephone Encounter - Kimberly Ackerman RN - 05/25/2013 10:16 AM EDT Diamond calls today and reports that she is doing well, and is comfortable on the 10 mg of Prednisone daily. Message to Dr. Aviles. documented in this encounter Plan of Treatment Upcoming Encounters Date Type Department Care Team (Late st Contact Info) Description 11/16/2024 1:00 PM EST Office [place] [phone] Paula Harris PA [facility] [place] [address] 01/26/2025 9:50 AM EDT Appointment Mammography/[place] [phone] Joan Deutsch APRN [facility] [place] [address] 01/26/2025 10:50 AM EDT Office [place] [phone] Joan Deutsch APRN [facility] [place] [address] documented as of this encounter Visit Diagnoses Not on filedocumented in this encounter Care Teams Fast Food Server Relationship Specialty Start Date End Date Mariluz Watts MD [address] [place] [address] [address] [place] [address] PCP - General 08/22/10 documented as of this encounter
--- OUTSIDE RECORDS SUMMARY | 2024-05-18 20:00 | XMS_ITS | Encounter Summary ---
Author Organization [facility] [place] [address] Care Team Providers Care Ct Technician Name Role Phone Mariluz Watts MD Primary Care Provider [phone] Reason for Visit * Reason Onset Date Comments Medication Refill 08/27/2012 Encounter Details Date Type Department Care Team (Late Contact Info) Description 08/27/2012 Refill Dermatology at [facility] [address] [place] [address] Chayo Willingham MD [facility] [place] [address] Rosacea (Primary Dx) Social History Tobacco Use Types [...] PM EST Office [place] [address] Paula Harris PA [facility] [place] [address] 01/26/2025 9:50 AM EDT Appointment Mammography/DXA at [place] [phone] Joan Deutsch APRN [facility] [place] [address] 01/26/2025 10:50 AM EDT Office Visit General Surgery at [place] [phone] Joan Deutsch, PRODUCTION GEAR CUTTER [facility] [place] [address] documented as of this encounter Visit Diagnoses Diagnosis Rosacea- Primary documented in this encounter Care Teams Ct Technician Relationship Specialty Start Date End Date Mariluz Watts MD [address] [facility] [address] [place] [address] PCP - General 08/22/10 documented as of this encounter
--- OUTSIDE RECORDS SUMMARY | 2024-05-18 20:00 | XMS_ITS | Encounter Summary ---
Author Organization [facility] [place] [address] Care Team Providers Care Unix Manager Name Role Phone Mariluz Watts MD Primary Care Provider [phone] Encounter Details Date Type Department Care Team (Late st Contact Info) Description 07/02/2013 Telephone Dermatology at [facility] [address] [place] [address] Santo Gutierrez III, MD [facility] [address] [place] [address] Social History Tobacco Use Types Packs/Day Years [...] encounter Miscellaneous Notes * Telephone Encounter - Santo Gutierrez III, MD - 07/02/2013 8:12 PM EDT I called the patient and discussed taking erythromycin with celexa. The combination can evidently prolong her T wave and promote arrhythmia. I will check with our pharm - D to see how much of a problem this really is and she will make an appointment to be evaluated to see if she really needs the benjamin thromycin. documented in this encounter Plan of Treatment Upcoming Encounters Date Type Department Care Team (Late st Contact Info) Description 11/16/2024 1:00 PM EST Office [place] [phone] Paula Harris PA [facility] [place] [address] 01/26/2025 9:50 AM EDT Appointment Mammography/DXA at [place] [phone] Joan Deutsch [facility] [place] [address] 01/26/2025 10:50 AM EDT Office [place] [phone] Jaon Deutsch [facility] [place] [address] documented as of this encounter Visit Diagnoses Not on filedocumented in this encounter Care Teams Unix Manager Relationship Specialty Start Date End Date Mariluz Watts MD [address] [place] [address] PCP - General 08/22/10 documented as of this encounter
--- OUTSIDE RECORDS SUMMARY | 2024-05-18 20:00 | XMS_ITS | Encounter Summary ---
[place] [address] Care Team Providers Care Stock Cutter Name Role Phone Mariluz Watts MD Primary Care Provider [phone] Reason for Visit * Reason Onset Date Comments Medication Refill 08/25/2012 Encounter Details Date Type Department Care Team (Late st Contact Info) Description 08/25/2012 Refill Hematology [place] [address] Gemini Lawrence RN Social History Tobacco Use Types Packs/Day [...] Miscellaneous Notes * Telephone Encounter - Gemini Lawrence RN - 08/25/2012 10:50 AM EST Script generated for anastrozole 1 mg dispense #90 with 3 refills. Pended for approval and signature, prior to e-scribe. documented in this encounter Plan of Treatment Upcoming Encounters Date Type Department Care Team (Late st Contact Info) Description 11/16/2024 1:00 PM EST Office [place] [address] Paula Harris PA [facility] [place] [address] 01/26/2025 9:50 AM EDT Appointment Mammography/DXA at [place] [phone] Joan Deutsch, [facility] [place] [address] 01/26/2025 10:50 AM EDT Office [place] [phone] Joan Deutsch, [facility] [place] [address] documented as of this encounter Visit Diagnoses Not on filedocumented in this encounter Care Teams Stock Cutter Relationship Specialty Start Date End Date Mariluz Watts MD [address] [place] [address] PCP - General 08/22/10 documented as of this encounter
--- OUTSIDE RECORDS SUMMARY | 2024-05-18 20:00 | XMS_ITS | Encounter Summary ---
Author Organization [facility] [place] [address] Care Team Providers Care Dictaphone Technician Name Role Phone Mariluz Watts MD Primary Care Provider [phone] Encounter Details Date Type Department Care Team (Late st Contact Info) Description 11/19/2012 External Results XRay at [address] [place] [phone] Diego Melendrez MD [address] [place] [address] Social History Tobacco Use Types Packs/Day Years [...] PM EST Office Visit General Surgery at [facility] [place] [phone] Paula Harris PA [facility] [place] [address] 01/26/2025 9:50 AM EDT Appointment Mammography/[place] [phone] Joan Deutsch, GE [facility] [place] [address] 01/26/2025 10:50 AM EDT Office [place] [phone] Joan Deutsch, [facility] [place] [address] documented as of this encounter Procedures Procedure Name Priority Date/Time Associated Diagnosis Comments DIAGNOSTIC RADIOLOGY SCAN Routine 11/12/2012 documented in this encounter Results * Scan Doc: Diagnostic Radiology (11/12/2012) Anatomical Region Laterality Modality Other Diego Melendrez MD MEDIA MGR SCAN EXT O RDR/RSLT documented in this encounter Visit Diagnoses Not on filedocumented in this encounter Care Teams Dictaphone Technician Relationship Specialty Start Date End Date Mariluz Watts MD [address] [place] [address] [address] [place] [address] PCP - General 08/22/10 documented as of this encounter
--- OUTSIDE RECORDS SUMMARY | 2024-05-18 20:00 | XMS_ITS | Encounter Summary ---
Author Organization [facility] [place] [address] Care Team Providers Care Antenna Engineer Name Role Phone Mariluz Watts MD Primary Care Provider [phone] Encounter Details Date Type Department Care Team (Late st Contact Info) Description 08/04/2012 [place] [address] [facility] [address] [place] [address] Rosacea (Primary Dx) Social History Tobacco Use [...] encounter Miscellaneous Notes * Telephone Encounter - Sue Cristobal LPN - 08/08/2012 2:05 PM EST Spoke with patient this afternoon she just received rx today. Aware per De. Willingham she should start to taper by decreasing by one tab at a time for a couple weeks at a time, eventually down to 250mg daily. Patient voices understanding and agrees with plan. * Telephone Encounter - Chayo Willingham MD - 08/05/2012 2:10 PM EST [place] I have refilled the rx at her original rx of 500mg BID (250mg tablets) as from the documentation I believe she has not tapered down yet. Please advise patient she should start to taper by decreasing by one tab at a time for a couple weeks at a time, eventually down to 250mg daily. I have given her enough tablets to last quite awhile with this plan. Thanks a * Telephone Encounter - Sue Cristobal LPN - 08/04/2012 2:26 PM EST Called and spokw with patient afternoon, she reports she was asked to call in Jul. In fu to her Rosacea. She reports it is doing very well on the current treatment Retin-A, Metro-gel and Emycin orally 500 mgBID The plan at last visit was if she continues to do well, patient will decrease to 250 mg daily and see how she does. She would at this time try to decrease and have rx sent to [facility] pharmacy. documented in this encounter Plan of Treatment Upcoming Encounters Date Type Department Care Team (Late st Contact Info) Description 11/16/2024 1:00 PM EST Office [place] [address] [facility] [place] [address] 01/26/2025 9:50 AM EDT Appointment Mammography/[place] [address] [facility] [place] [address] 01/26/2025 10:50 AM EDT Office [place] [address] [facility] [place] [address] documented as of this encounter Visit Diagnoses Diagnosis Rosacea- Primary documented in this encounter Care Teams Antenna Engineer Relationship Specialty Start Date End Date Mariluz Watts MD [address] [place] [address] PCP - General 08/22/10 documented as of this encounter
--- OUTSIDE RECORDS SUMMARY | 2024-05-18 20:00 | XMS_ITS | Encounter Summary ---
[place] [address] Care Team Providers Care Placer Miner Name Role Phone Mariluz Watts MD Primary Care Provider [phone] Encounter Details Date Type Department Care Team (Late st Contact Info) Description 04/21/2013 Telephone [place] [address] Kian Ervin MD [address] [place] [address] Social History Tobacco Use Types Packs/Day Years [...] Telephone Encounter - Charity Mathur RN - 04/21/2013 8:17 AM EDT Diamond called, She is having trouble with her left hip. She struggles to go up and down stairs. Called transferred to the patient care secretary to make an appointment with one of Dr Ervin's associates. Surgical Procedure Performed: Injection left hip with 10 cc marcaine 0.25% with epi, into skin and subcutaneous tissues (CPT [id number]) left total hip arthroplasty, anterior Hueter approach with Allen table (CPT code 28208) Left hip intraoperative radiologic examination (CPT code 40044) Amicar infusion (5 g IV load, then 1g/hr x 3 hrs) documented in this encounter Plan of Treatment Upcoming Encounters Date Type Department Care Team (Late st Contact Info) Description 11/16/2024 1:00 PM EST Office [place] [address] Paula Harris PA [facility] [place] [address] 01/26/2025 9:50 AM EDT Appointment Mammography/DXA at [place] [phone] Joan Deutsch RECEIVING SPECIALIST [facility] [place] [address] 01/26/2025 10:50 AM EDT Office [place] [phone] Joan Deutsch RECEIVING SPECIALIST [facility] [place] [address] documented as of this encounter Visit Diagnoses Not on filedocumented in this encounter Care Teams Placer Miner Relationship Specialty Start Date End Date Mariluz Watts MD [address] [place] [address] PCP - General 08/22/10 documented as of this encounter
--- OUTSIDE RECORDS SUMMARY | 2024-05-18 20:00 | XMS_ITS | Encounter Summary ---
Author [place] [address] Care Team Providers Care Profile Mill Operator Tape Control Name Role Phone Mariluz Watts MD Primary Care Provider [phone] Encounter Details Date Type Department Care Team (Latest Contact Info) Description 12/09/2012 9:28 AM EDT - 12/09/2012 11:59 PM EDT Hospital En[place] [address] Malignant neoplasm of breast (female), unspecified site Social History Tobacco Use Types Packs/Day Years [...] Sig Dispensed Refills Start Date End Date MAG OXIDE-VIT D3-TUMERIC RT XT ORAL Take 1 tablet by mouth daily. 08/12/2013 Echinacea 125 mg Cap Take 1 tablet by mouth daily. 12/22/2012 ascorbic acid (VITAMIN C) 500 mg tablet Take 500 mg by mouth daily. 07/13/2013 tretinoin (RETIN-A) 0.05 % creamIndications:Rosac ea Apply topically nightly. 45 g 3 08/27/2012 04/21/2013 anastrozole (ARIMIDEX) 1 mg tablet Take 1 tablet by mouth nightly. 90 tablet 3 08/25/2012 06/12/2013 multivitamin (THERAGRAN) tablet Take 1 tablet by mouth daily. 08/12/2013 cholecalciferol, Vitamin D3, (VITAMIN D) 1,000 unit Tab tablet Take 1 tablet by mouth daily. 60 tablet 5 07/25/2012 09/07/2022 lactobacillus rhamnosus, GG, (PROBIOTIC) 10 billion cell capsule Take 1 capsule by mouth daily. 07/25/2012 12/22/2012 metroNIDAZOLE (METROGEL) 1 % gel Apply topically daily. 45 g 07/25/2012 12/31/2012 senna-docusate (PERICOLACE) 8.6-50 mg per tablet Take 1-4 tablets by mouth 2 times daily. 60 tablet 3 07/25/2012 08/12/2013 Lysine 1,000 mg Tab Take 1 tablet by mouth as needed. 08/12/2013 citalopram (CELEXA) 40 mg tabletIndications:depr ession Take 40 mg by mouth daily. Indications: Depression 05/20/2013 documented as of this encounter Plan of Treatment Upcoming Encounters Date Type Department Care Team (Late st Contact Info) Description 11/16/2024 1:00 PM EST Office [place] [address] Paula Harris PA [facility] [place] [address] 01/26/2025 9:50 AM EDT Appointment Mammography/[place] [address]1000 Joan Deutsch APRN [facility] [place] [address] 01/26/2025 10:50 AM EDT Office [place] [address] Joan Deutsch APRN [facility] [place] [address] documented as of this encounter Procedures Procedure Name Priority Date/Time Associated Diagnosis Comments MAMMO SCREENING CAD BILATERAL Routine 12/09/2012 10:15 AM EDT Malignant neoplasm of breast (female), unspecified site documented in this encounter Results * Mammo digital bilateral Screening with CAD (12/09/2012 10:15 AM EDT) Anatomical Region Laterality Modality Breast Bilateral Mammography 12/09/2012 10:1 5 AM EDT Narrative 12/11/2012 12:17 PM EDT BILATERAL MAMMOGRAPHY ?? REASON FOR EXAM: Screening. History of Right breast cancer. ?? TECHNIQUE: Cranio-caudal (CC) and mediolateral oblique (MLO) views of both breasts obtained with direct digital capture. The exam was evaluated by CAD Version 8.3.17. ?? FINDINGS: This is a negative mammogram (ACR Category 1). There is a stable fibroglandular pattern without significant change as compared to prior studies. There is no mammographic evidence of cancer. ? The breasts are of scattered density. ? Reduction surgery has been performed. ? There are post-surgical changes in the Right breast. ? A biopsy marker clip is present in the Right breast. ? CONCLUSION ?? This is a NEGATIVE mammogram (ACR Category 1). Routine screening mammography is recommended with the frequency dependent on the patient's age and breast cancer risk factors. ?? A letter has been sent to this patient by [facility]. Procedure Note Nichol Dial MD - 12/11/2012 BILATERAL MAMMOGRAPHY REASON FOR EXAM: Screening. History of Right breast cancer. TECHNIQUE: Cranio-caudal (CC) and mediolateral oblique (MLO) views of both breasts obtained with direct digital capture. The exam was evaluated byCAD Version 8.3.17. FINDINGS: This is a negative mammogram (ACR Category 1). There is a stable fibroglandular pattern without significant change as compared to priorstudies. There is no mammographic evidence of cancer. The breasts are of scattered density. Reduction surgery has been performed. There are post-surgical changes in the Right breast. A biopsy marker clip is present in the Right breast. CONCLUSION This is a NEGATIVE mammogram (ACR Category 1). Routine screeningmammography is recommended with the frequency dependent on the patient's age and breastcancer risk factors. A letter has been sent to this patient by the [facility]. Bella Ly APRN IMG MAMMO ORDERA BLES documented in this encounter Visit Diagnoses Diagnosis Malignant neoplasm of breast (female), unspecified site documented in this encounter Care Teams Profile Mill Operator Tape Control Relationship Specialty Start Date End Date Mariluz Watts MD [address] [place] [address] PCP - General 08/22/10 documented as of this encounter
--- OUTSIDE RECORDS SUMMARY | 2024-05-18 20:00 | XMS_ITS | Encounter Summary ---
Author Organization [facility] [place] [address] Care Team Providers Care Stem Setter Name Role Phone Mariluz Watts MD Primary Care Provider [phone] Reason for Referral * Physical Therapy (Routine) - Complete - Patient Will Schedule External Appt Specialty Diagnoses / Procedures Referred By John lyons Referred To Contact Physical Therapy Diagnoses Status post hip replacement Linsey Martinez PA [facility] [place] [address] Referral ID Status Reason Start Date Expiration Date Visits Requested Visits Authorized [id number] Complete - Patient Will Schedule External Appt Evaluate and Treat 04/21/2013 10/18/2013 12 12 * Consultation (Routine) - Closed Specialty Diagnoses / Procedures Referred By John lyons Referred To Contact Rheumatology Diagnoses Status post hip replacement Linsey Martinez PA [facility] [place] [address] [facility] Rheumatology [address] [place] [phone] Referral ID Status Reason Start Date Expiration Date V isits Requested Visits Authorized [id number] Closed Consult, Test & Treat 04/21/2013 10/18/2013 1 1 Reason for Visit * Reason Comments Bilateral Hip Pain SP L ARSLAN DOS 2, R ARSLAN DOS 2004 Encounter Details Date Type Department Care Team (Late st Contact Info) Description 04/21/2013 11:00 AM EDT Office [place] [address] [facility] [place] [address] Status post hip replacement (Primary Dx); S/P Left Anterior ARSLAN- 07/22/12 (Dr. Ervin) [...] Sign Reading Time Taken Comments Blood Pressure 125/77 04/21/2013 11:16 AM EDT Pulse 73 04/21/2013 11:16 AM EDT Temperature - - Respiratory Rate - - Oxygen Saturation - - Inhaled Oxygen Concentration - - Weight 95.1 kg (209 lb 9.6 oz) 04/21/2013 11:16 AM EDT Height 167.6 cm (5' 6) 04/21/2013 11:16 AM EDT STATED Body Mass Index 33.83 04/21/2013 11:16 AM EDT documented in this encounter Progress Notes * Linsey Martinez PA - 04/21/2013 12:14 PM EDT Date of Visit: 04/21/13 Staff: Dr. Ervin HPI: This is a 67 yo female who presents with continued hip pain bilaterally. She states however her left hip is the worst. She underwent ARSLAN (anterior ) Jun 2012. She has struggled with her left hipsince surgery and continues to have symptoms that were similar to 6 mos ago, but now progressive. She has anterolateral hip pain in particular with hip flexion. She additionally has night pain. Her symptoms feel similar to prior to hip replacement. She has multiple other joints that bother her including ankles, knees, hands and shoulders. 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 Denies fever or chills. Baseline numbness and tingling in feet. Exam: Alert and Oriented x 3. Sitting in chair. NAD Inspection: Leg lengths equal. Palpation. Mild tenderness along left trochanteric bursa and IT band Right hip with painless ROM Left hip- flexion 95. External rot 30. Internal rot 15. Abduction 30. Adduction 5 Painless testing of with resisted hip abduction. Xray: No fracture or dislocation. No appreciated change of implant. A/P: Left hip pain 9 mos s/p ARSLAN. Joint pain Patient has struggled with her left hip for some time. She finds some benefit from PT, but due to some commitments she has stopped. She would like to get back to it and I feel that is reasonable. Shecontinues to use an nsaid on a regular basis. I reassured the patient and discussed that recovery could take up to 1 year. I have given her a PT referral and she will have follow up with Dr. Ervin's team in 8 weeks. At this time with her multiple joint complaints I am referring her to rheumatology. documented in this encounter Miscellaneous Notes * Addendum Note - Linsey Martinez PA - 04/21/2013 4:05 PM EDTAddended by: LINSEY MARTINEZ on: 04/21/2013 04:05 PM Modules accepted: SmartSet documented in this encounter Plan of Treatment Upcoming Encounters Date Type Department Care Team (Late st Contact Info) Description 11/16/2024 1:00 PM EST Office [place] [address] [facility] [place] [address] 01/26/2025 9:50 AM EDT Appointment Mammography/[place] [phone] Joan Deutsch, BOOT MAKER [facility] [place] [address] 01/26/2025 10:50 AM EDT Office [place] [phone] Joan Deutsch, BOOT MAKER [facility] [place] [address] Scheduled Referrals Name Type Priority Associated Diagnoses Orde r Schedule Referral to Rheumatology Outpatient Referral Routine Status post hip replacement Ordered: 04/21/2013 Referral to Physical Therapy Outpatient Referral Routine Status post hip replacement Ordered: 04/21/2013 documented as of this encounter Visit Diagnoses Diagnosis Status post hip replacement- Primary Hip joint replacement by other means S/P Left Anterior ARSLAN- 07/22/12 (Dr. Ervin) Hip joint replacement by other means documented in this encounter Care Teams Stem Setter Relationship Specialty Start Date End Date Mariluz Watts MD [address] [place] [address] [address] [place] [address] PCP - General 08/22/10 documented as of this encounter
--- OUTSIDE RECORDS SUMMARY | 2024-05-18 20:00 | XMS_ITS | Encounter Summary ---
Author Organization [facility] [place] [address] Care Team Providers Care Developer Advisor Name Role Phone Mariluz Watts MD Primary Care Provider [phone] Encounter Details Date Type Department Care Team (Late st Contact Info) Description 07/02/2013 Telephone Dermatology at [facility] [address] [place] [address] Santo Gutierrez III, MD [facility] [address] [place] [address] Social History Tobacco Use Types Packs/Day Years [...] encounter Miscellaneous Notes * Telephone Encounter - Lindy Mckenna LPN - 07/02/2013 4:44 PM EDT Message from Dr. Santo Gutierrez 10/2012 Please contact her and see how she is doing. Tell her that if she is taking Celexa she should avoid the erythromycin as they can cause a heart rhythm problem taken together. If not on Celexa- ok to take erythromycin. Can be seen if her problems persist and she needs to take something. 07/01/2013 I discussed message from Dr. Gutierrez with Diamond and she understands. She would like to be seen to discuss an alternate antibiotic. She repots still being on Celexa. documented in this encounter Plan of Treatment Upcoming Encounters Date Type Department Care Team (Late st Contact Info) Description 11/16/2024 1:00 PM EST Office Visit General Surgery at [place] [phone] Paula Harris PA [facility] [place] [address] 01/26/2025 9:50 AM EDT Appointment Mammography/[place] [address] Joan Deutsch APRN [facility] [place] [address] 01/26/2025 10:50 AM EDT Office Visit General Surgery at [place] [phone] Joan Deutsch APRN [facility] [place] [address] documented as of this encounter Visit Diagnoses Not on filedocumented in this encounter Care Teams Developer Advisor Relationship Specialty Start Date End Date Mariluz Watts MD [address] [place] [address] PCP - General 08/22/10 documented as of this encounter
--- OUTSIDE RECORDS SUMMARY | 2024-05-18 20:00 | XMS_ITS | Encounter Summary ---
Author Organization [facility] [place] [address] Care Team Providers Care Media Relations Manager Name Role Phone Mariluz Watts MD Primary Care Provider [phone] Encounter Details Date Type Department Care Team (Late st Contact Info) Description 12/03/2012 11:23 AM EST - 12/03/2012 11:59 PM [facility] Hospital Encounter XRay at [address] [place] [address] Hand pain Social History Tobacco Use Types Packs/Day [...] Apply topically daily. 45 g 07/25/2012 12/31/2012 rivaroxaban (XARELTO) 10 mg Tab tablet Take 1 tablet by mouth daily. STOP after last dose morning of August 26. 32 tablet 0 07/25/2012 12/09/2012 senna-docusate (PERICOLACE) 8.6-50 mg per tablet Take [...] PM EST Office [place] [phone] Paula Harris PA [facility] [place] [address] 01/26/2025 9:50 AM EDT Appointment Mammography[place] [phone] Joan Deutsch APRN [facility] [place] [place] [address] 01/26/2025 10:50 AM EDT Office [place] [address] Joan Deutsch APRN [facility] [place] [address] documented as of this encounter Procedures Procedure Name Priority Date/Time Associated Diagnosis Comments XR HAND DIAGNOSTIC MINIMUM 3 VIEWS Routine 12/03/2012 11:47 AM EST Hand pain documented in this encounter Results * XR hand diagnostic minimum 3 views (12/03/2012 11:47 AM EST) Anatomical Region Laterality Modality Hand N/A Radiographic Crystal ging 12/03/2012 11:4 7 AM EST Narrative 12/03/2012 12:54 PM EST Examination DIAG HAND MIN 3 VIEWS/LEFT Clinical History L HAND DUPYTREN'S CON Comparison None Technique Findings The bone mineralization is decreased. ??There are small osteophytes arising from scattered DIP joints. ?? There is basal joint osteoarthropathy characterized by osteophyte formation and eccentric joint space narrowing. ??The lunate has a prominent hamate facet and a small radiolucency at its ulnar base. ??No erosions or fracture. Impression Scattered DIP joint and basal joint osteoarthropathy. Procedure Note Marly Torres MD - 12/03/2012 Examination DIAG HAND MIN 3 VIEWS/LEFT Clinical History L HAND DUPYTREN'S CON Comparison None Technique Findings The bone mineralization is decreased. There are small osteophytes arisingfrom scattered DIP joints. There is basal joint osteoarthropathy characterized by osteophyteformation and eccentric joint space narrowing. The lunate has a prominent hamate facetand a small radiolucency at its ulnar base. No erosions or fracture. Impression Scattered DIP joint and basal joint osteoarthropathy. Lev Garg MD IMG DX ORDERABLES documented in this encounter Visit Diagnoses Diagnosis Hand pain Pain in limb documented in this encounter Care Teams Media Relations Manager Relationship Specialty Start Date End Date Mariluz Watts MD [address] [place] [address] PCP - General 08/22/10 documented as of this encounter
--- OUTSIDE RECORDS SUMMARY | 2024-05-18 20:00 | XMS_ITS | Encounter Summary ---
[place] [address] Care Team Providers Care Mid Level Net Developer Name Role Phone Mariluz Watts MD Primary Care Provider [phone] Reason for Visit * Reason Onset Date Comments Rash 08/14/2012 Encounter Details Date Type Department Care Team (Late st Contact Info) Description 08/14/2012 Telephone [place] [address] Kian Ervin MD [address] [place] [address] Rash Social History Tobacco Use Types Packs/Day Years [...] Telephone Encounter - Charity Mathur RN - 08/14/2012 10:27 AM EST Diamond called, she is concerned the raised rash around her incision is worse. 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 In the past she was treated with doxycycline, allergy to tetracyclines, treated tank terminal gauger with prednisone. We will bring her in today for a visit to assess the rash. She reports it is not on the incision itself but on the perimeter out about 4 and going up her abdomen. documented in this encounter Plan of Treatment Upcoming Encounters Date Type Department Care Team (Late st Contact Info) Description 11/16/2024 1:00 PM EST Office Visit General Surgery at [place] [phone] Paula Harris PA [facility] [place] [address] 01/26/2025 9:50 AM EDT Appointment Mammography/DXA at [place] [phone] Joan Deutsch COMPLIANCE INVESTIGATOR [facility] [place] [place] [address] 01/26/2025 10:50 AM EDT Office [place] [phone] Joan Deutsch [facility] [place] [place] [address] documented as of this encounter Visit Diagnoses Not on filedocumented in this encounter Care Teams Mid Level Net Developer Relationship Specialty Start Date End Date Mariluz Watts MD [address] [place] [address] PCP - General 08/22/10 documented as of this encounter
--- OUTSIDE RECORDS SUMMARY | 2024-05-18 20:00 | XMS_ITS | Encounter Summary ---
Author Organization [facility] [place] [address] Care Team Providers Care Shoe Designer Name Role Phone Mariluz Watts MD Primary Care Provider [phone] Encounter Details Date Type Department Care Team (Latest Contact Info) Description 05/22/2013 8:55 AM EDT - 05/22/2013 11:59 PM EDT Hospital Encounter XRay at [address] [place] [id number] Right foot pain Social History Tobacco Use [...] Refills Start Date End Date LACTOBAC CMB #[id number] ORAL Take 1 tablet by mouth daily. 12/24/2012 05/01/2018 clarithromycin (BIAXIN) 500 mg Tablet Twice a day 12/15/201204/24 amoxicillin-clavulanat e (AUGMENTIN) 500-125 mg per tablet Take 4 tablets by mouth as needed. Reported on 12/11/2016 03/16/2013 05/01/2018 hydroxychloroquine (PLAQUENIL) 200 mg tablet Take 1 tablet by mouth 2 times daily for 30 days. 60 tablet 3 05/20/2013 06/19/2013 citalopram (CELEXA) 20 mg tablet Take 20 mg by mouth daily. 05/16/2016 traZODone (DESYREL) 50 mg tablet Take 50 mg by mouth as needed. 07/13/2013 predniSONE (DELTASONE) 20 mg tablet Take 20 mg by mouth. Tapering dose 05/25/2013 hydroCODone-acetaminop hen (VICODIN) 5-500 mg per tablet Take 1 tablet by mouth. Takes 1-2 TID PRN 08/12/2013 cyclobenzaprine (FLEXERIL) 10 mg tablet Take 10 mg by mouth 3 times daily as needed. 07/13/2013 Zinc 50 mg Tab Take 1 tablet by mouth daily. 08/19/2013 erythromycin (CAIN-TAB) 250 mg EC tablet Take one tablet by mouth every other day. 60 tablet 1 01/02/2013 07/13/2013 metroNIDAZOLE (METROGEL) 1 % gel Apply topically daily. 45 g 3 12/31/2012 02/01/2014 lactobac cmb #[id number] (PROBIOTIC & ACIDOPHILUS) 300-250 million cell-mg Cap Take 1 tablet by mouth daily. 08/12/2013 Calcium 600 mg Cap Take 1 tablet by mouth daily. 07/13/2013 UNABLE TO FIND reishi 800mg Med Name: 08/12/2013 ibuprofen (ADVIL;MOTRIN) 600 mg tablet Take 600 mg by mouth 4 times daily. 11/06/2018 MAG OXIDE-VIT D3-TUMERIC RT XT ORAL Take 1 tablet by mouth daily. 08/12/2013 ascorbic acid (VITAMIN C) 500 mg tablet Take 500 mg by mouth daily. 07/13/2013 anastrozole (ARIMIDEX) 1 mg tablet Take 1 [...] PM EST Office [place] [phone] Paula Harris PA [facility] [place] [address] 01/26/2025 9:50 AM EDT Appointment Mammography/[place] [phone] Joan Deutsch APRN [facility] [place] [address] 01/26/2025 10:50 AM EDT Office [place] [phone] Joan Deutsch APRN [facility] [place] [address] documented as of this encounter Procedures Procedure Name Priority Date/Time Associated Diagnosis Comments XR FOOT MINIMUM 3 VIEWS Routine 05/22/2013 9:11 AM EDT Right foot pain documented in this encounter Results * XR foot minimum 3 views (05/22/2013 9:11 AM EDT) Anatomical Region Laterality Modality Foot N/A Radiographic Crystal ging 05/22/2013 9:11 AM EDT Narrative 05/22/2013 9:34 AM EDT Test weightbearing. Examination FOOT MIN 3 VIEWS/RIGHT Clinical History RT FOOT PAIN Comparison Non none e Technique 3 views right foot Findings There is very mild hallux valgus and bunion. ??There is marked osteoarthritis in the navicular- cuneiform joints. There is moderate osteoarthritis in the cuneiform- 1st through 3rd metatarsal joints. Bones are moderately osteopenic. Prominent medial spurring in the navicular -medial cuneiform joint. Mild plantar calcaneal spur. Mild dorsal spur and the cuneiform 1st metatarsal joint. ?? 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 . Mildly prominent plantar calcaneal spur. Procedure Note Devaughn Barber MD - 05/22/2013 Test weightbearing. Examination FOOT MIN 3 VIEWS/RIGHT Clinical History RT FOOT PAIN Comparison Non none e Technique 3 views right foot Findings There is very mild hallux valgus and bunion. There is markedosteoarthritis in the navicular- cuneiform joints. There is moderate osteoarthritis in the cuneiform- 1st through 3rd metatarsal joints. Bones are moderatelyosteopenic. Prominent medial spurring in the navicular -medial cuneiform joint. Mild plantar calcaneal spur. Mild dorsal spur and the cuneiform 1st metatarsal joint. 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 . Mildly prominent plantar calcaneal spur. Morgan Kong MD IMG DX ORDERABLES documented in this encounter Visit Diagnoses Diagnosis Right foot pain Pain in limb documented in this encounter Care Teams Shoe Designer Relationship Specialty Start Date End Date Mariluz Watts MD [address] [place] [address] PCP - General 08/22/10 documented as of this encounter
--- OUTSIDE RECORDS SUMMARY | 2024-05-18 20:00 | XMS_ITS | Encounter Summary ---
Author Organization [facility] [place] [address] Care Team Providers Care Brass Burnisher Name Role Phone Mariluz Watts MD Primary Care Provider [phone] Encounter Details Date Type Department Care Team (Latest Contact Info) Description 08/18/2012 11:20 AM EST - 08/18/2012 11:59 PM [facility] Hospital Encounter XRay at [address] [place] [address] DJD (degenerative joint disease) of hip Social History Tobacco Use Types Packs/Day Years [...] Sig Dispensed Refills Start Date End Date multivitamin (THERAGRAN) tablet Take 1 tablet by mouth daily. 08/12/2013 HYDROmorphone (DILAUDID) 2 mg tablet Take 2 mg by mouth every 3 hours as needed. 12/03/2012 anastrozole (ARIMIDEX) 1 mg tablet Take 1 tablet by mouth nightly. 90 tablet 3 07/25/2012 08/25/2012 cholecalciferol, Vitamin D3, (VITAMIN D) 1,000 unit [...] 1 tablet by mouth as needed. 08/12/2013 CYANOCOBALAMIN, VITAMIN B-12, (VITAMIN B-12 ORAL) Take 500 mg by mouth daily. 12/03/2012 tretinoin (RETIN-A) 0.05 % creamIndications:Rosac ea Apply topically nightly. 45 g 1 11/13/2011 08/27/2012 citalopram (CELEXA) 40 mg tabletIndications:depr ession Take 40 mg by mouth daily. Indications: Depression 05/20/2013 documented as of this encounter Plan of Treatment Upcoming Encounters Date Type Department Care Team (Late st Contact Info) Description 11/16/2024 1:00 PM EST Office [place] [phone] Paula Harris PA [facility] [place] [address] 01/26/2025 9:50 AM EDT Appointment Mammography/[place] [phone] Joan Deutsch, SECURITY OPERATIONS CENTER ANALYST [facility] [place] [phone] 01/26/2025 10:50 AM EDT Office [place] [address] Joan Deutsch APRN [facility] [place] [address] documented as of this encounter Procedures Procedure Name Priority Date/Time Associated Diagnosis Comments XR PELVIS AND LATERAL HIP Routine 08/18/2012 11:29 AM EST Osteoarth NOS-pelvis documented in this encounter Results * XR PELVIS AND LATERAL HIP (08/18/2012 11:29 AM EST) Anatomical Region Laterality Modality Pelvis, Hip N/A Radiographic Crystal ging 08/18/2012 11:2 9 AM EST Narrative 08/18/2012 11:36 AM EST Examination PELVIS+LATERAL HIP/LEFT Clinical History ARSLAN; To be done at postoperative follow up; Comparison 07/22/2012, 03/06/2005. Technique AP pelvis, lateral left hip. Findings Status post bilateral total hip arthroplasties which are non cemented. ??A single cerclage wire is present on the left. ??No periprosthetic fracture or significant periprosthetic radiolucency is identified. Impression Unchanged appearance of bilateral total hip arthroplasties. Procedure Note Miah Cain MD - 08/18/2012 Examination PELVIS+LATERAL HIP/LEFT Clinical History ARSLAN; To be done at postoperative follow up; Comparison 07/22/2012, 03/06/2005. Technique AP pelvis, lateral left hip. Findings Status post bilateral total hip arthroplasties which are non cemented. A single cerclage wire is present on the left. No periprosthetic fractureor significant periprosthetic radiolucency is identified. Impression Unchanged appearance of bilateral total hip arthroplasties. Kian Ervin MD IMG DX ORDERABLES documented in this encounter Visit Diagnoses Diagnosis DJD (degenerative joint disease) of hip Osteoarthrosis, unspecified whether generalized or localized, pelvic region and thigh documented in this encounter Care Teams Brass Burnisher Relationship Specialty Start Date End Date Mariluz Watts MD [address] [place] [address] PCP - General 08/22/10 documented as of this encounter
--- OUTSIDE RECORDS SUMMARY | 2024-05-18 20:00 | XMS_ITS | Encounter Summary ---
Author Organization [facility] [place] [address] Care Team Providers Care Turbo Generator Oiler Name Role Phone Mariluz Watts MD Primary Care Provider [phone] Reason for Visit * Reason Comments Joint Pain Encounter Details Date Type Department Care Team (Latest Contact Info) Description 05/20/2013 10:45 AM EDT Office [place] [address] Scar Aviles II, [facility] [place] [address] Osteoarthritis (Primary Dx); Aromatase inhibitor-associated arthralgia Discharge Disposition: Home Social History Tobacco Use [...] Sign Reading Time Taken Comments Blood Pressure 127/81 05/20/2013 10:55 AM EDT Pulse 86 05/20/2013 10:55 AM EDT Temperature 36.7 ??C (98.1 ??F) 05/20/2013 10:55 AM E DT Respiratory Rate - - Oxygen Saturation 95% 05/20/2013 10:55 AM EDT Inhaled Oxygen Concentration - - Weight 97.1 kg (214 lb) 05/20/2013 10:55 AM EDT Height 167.6 cm (5' 6) 05/20/2013 10:55 AM EDT Body Mass Index 34.54 05/20/2013 10:55 AM EDT documented in this encounter Progress Notes * Scar Aviles Deon II, DO - 05/20/2013 10:59 AM EDT Rheumatology Outpatient Consultation Note Reason for Consult: The patient is seen at the request of Dr. MARILUZ WATTS MD /Dr. Ervin for evaluation and treatment of polyarthralgias. History of Present Illness: Diamond Gaming is a 67 y.o. female who presents today for evaluation of polyarthralgias. She notes pain in her neck, shoulders, low back, R elbow, PIP joints, hips, knees, ankles and feet. Most of the pain currently is in the R foot. She notes that she has had joint issues through the years with several traumatic injuries to her knees. In 2004 she had her R hip replaced secondary to severe OA, then in 2005 tore the meniscus in the R knee, and then in 2011 had a L hip replacement last year. Footissues are more recent. The pathology from both hip surgeries revealed OA. She currently feels thather lifestyle diminished because of the pain and would like to get back to yoga. She has several other medical issues, including a GI bleed in 2005 which was thought to be related to a diverticular bleed. She was dx with breast cancer in 2009 and underwent radiation and is on Arimidex (completed 3 of 5 years). She has intermittent episodes of sciatica and she is currently on a prednisone course for this. The current taper is 3 days of 40mg, 3 days of 20mg, 4 days of 10mg and she is starting 10mg tomorrow. She notes 90% improvement in her joints on 40mg, 40% improvement on 20mg and minimal improvement on 10mg. She had a piriformis injection 2 weeks ago from which she has not had any effect yet. She does take some vicodin, particularly at night which has been minimally helpful. She also uses flexeril with some help. She takes ibuprofen 600mg PO QID with some improvement, and has not had any adverse effects from the ibuprofen use. 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 Relative to hypermobility, loreotes that as a child, she could bring her thumb to her wrist. She is no longer able to do this. ROS: General (-)fevers, (-)chills, occasional night sweats, (+)unintended wt loss 50 lbs-since 2008. Some wt gain recently due to inactivity. HEENT (-)epistaxis, (-)bleeding gums, (-)oral ulcers, (+)dry eyes - ?related to roceatia , (-)dry mouth, (-)dysphagia, occasional dyspepsia, (-)photo sensitivity CVS (-)chest pain Pulm (-)shortness of breath, (-)PANTOJA, (-)wheezes, (-)cough, (-)pleuritic pain GI Episode of vomiting every few months. (-)abdominal pain, (-)hematemesis, (- )hematochezia, (-)change in appetite (-)hematuria, (-)dysuria MS (-)muscle weakness, (-)paralysis, (+)joint pain as above Neuro (-)focal weakness - hands a little weaker, (-)paresthesias - L anterior lower leg - s/p fall,(-)gait instability. Skin (-)Raynaud's, (-)rashes Family Hx: M:OA F:OA (+)familial dupuytren's contractures (father, brother, grandmother) (-)RA, (-)lupus, (-)scleroderma, (-)sjogren's, (-)gout Physical Examination: BP 127/81 Pulse 86 Temp 36.7 ??C (98.1 ??F) (Oral) Ht 167.6 cm (5' 6) Wt 97.07 kg (214 lb) BMI 34.54 kg/m2 SpO2 95% General: AAOx3, NAD, pleasant woman sitting comfortably, easily able to get up to the exam table. HEENT: EOMI, PERRL, Mucous membranes are moist Skin: (-)ulcers, (-)rash Neck: Supple, no lymphadenopathy Cardiovascular: RR, (-)murmurs, rubs, or gallops. Lungs: Clear to auscultation bilaterally. (-)R/R/W Abdomen: Soft, nontender, nondistended, normal active bowel sounds, no hepatosplenomegaly. Neuro: Alert and oriented x3. Cranial nerves II through XII grossly intact. Strength 5/5 throughout. Patellar DTRs are 2+ b/l. Extremities: Shoulders: FROM, non-tender to palpation. Elbows:FROM, (-)pain, (-)nodules, mild hyperextension -5 degrees b/l. Wrists: FROM, no swelling, non-tender Hands: No synovitis, no MCP compression tenderness, full claw and fist. (+)heberden's nodes. L handwith dupuytren's contracture Hips: Limited on the R given dislocation precautions. L FROM, non-tender Knees: (-)effusions, non-tender ROM, (+)crepitus, R surgical scar well healed. Ankles: FROM, non-tender, no swelling Feet: no MTP compression tenderness. R midfoot bony swelling which is not currently tender. Laboratory Data: Negative inflammatory markers in 2011 Studies: 12/03/12 hand x-ray personally reviewed. No evidence of erosions, (+) OA changes Impression: Diamond Gaming is a 67 y.o. female who presents today with arthralgias without arthritis likely secondary to osteoarthritis which is worsened by her aromatase inhibitor. We discussed the possible options and while ibuprofen has been helpful, I am concerned about NSAID side effects especially given her bleeding diathesis with 2400mg of daily ibuprofen. We discussed other options including prednisone, plaquenil and tramadol. She would prefer not to be on prednisone, and I think that is reasonable, as she only finds relatively high doses effective. I do think that plaquenil may be a good drug totry as this is a relatively benign drug and may be able to decrease her NSAID use. Should this not be effective, we could re-consider prednisone or tramadol. She will be seeing Dr. Kong later this week to consider Recommendations: OA / aromatase inhibitor arthralgias Start plaquenil 200mg PO BID -recommended yearly eye exams If plaquenil not effective, consider prednisone (start with 20mg and gradually taper), or tramadol We will plan to f/u in 3 months to look for efficacy or need to change therapy. I do not think thatadditional work up is needed at this point. CC: MARILUZ WATTS MD documented in this encounter Miscellaneous Notes * Miscellaneous - Provider, Scanning - 05/22/2013 9:31 AM EDT documented in this encounter Plan of Treatment Upcoming Encounters Date Type Department Care Team (Late st Contact Info) Description 11/16/2024 1:00 PM EST Office Visit General Surgery at [place] [phone] Paula Harris PA [facility] [place] [address] 01/26/2025 9:50 AM EDT Appointment Mammography/[place] [phone] Joan Deutsch APRN [facility] [place] [address] 01/26/2025 10:50 AM EDT Office [place] [phone] Joan Deutsch APRN [facility] [place] [address] documented as of this encounter Visit Diagnoses Diagnosis Osteoarthritis- Primary Osteoarthrosis, unspecified whether generalized or localized, unspecified site Aromatase inhibitor-associated arthralgia Pain in joint, site unspecified documented in this encounter Care Teams Turbo Generator Oiler Relationship Specialty Start Date End Date Mariluz Watts MD [address] [place] [address] PCP - General 08/22/10 documented as of this encounter
--- OUTSIDE RECORDS SUMMARY | 2024-05-18 20:00 | XMS_ITS | Encounter Summary ---
[place] [address] Care Team Providers Care Sourcer Name Role Phone Mariluz Watts MD Primary Care Provider [phone] Encounter Details Date Type Department Care Team (Late st Contact Info) Description 06/03/2013 12:54 PM EDT - 06/03/2013 11:59 PM EDT Hospital [place] [address] CLINIC, Mariluz Hidalgo MD [address] [place] [address] [address] [facility] [address] [place], [place] [id number] Discharge Disposition: Home Social History Tobacco Use [...] Refills Start Date End Date LACTOBAC CMB #[id number] ORAL Take 1 tablet by mouth daily. 12/24/2012 05/01/2018 clarithromycin (BIAXIN) 500 mg Tablet Twice a day 12/15/201204/24 amoxicillin-clavulanat e (AUGMENTIN) 500-125 mg per tablet Take 4 tablets by mouth as needed. Reported on 12/11/2016 03/16/2013 05/01/2018 predniSONE (DELTASONE) 10 mg tablet Take 1 tablet by mouth daily. 30 tablet 3 05/25/2013 07/10/2013 hydroxychloroquine (PLAQUENIL) 200 mg tablet Take 1 tablet by mouth 2 times daily for 30 days. 60 tablet 3 05/20/2013 06/19/2013 citalopram (CELEXA) 20 mg tablet Take 20 mg by mouth daily. 05/16/2016 traZODone (DESYREL) 50 mg tablet Take 50 mg by mouth as needed. 07/13/2013 hydroCODone-acetaminop hen (VICODIN) 5-500 mg per tablet [...] 45 g 3 12/31/2012 02/01/2014 lactobac cmb #[id number] (PROBIOTIC & ACIDOPHILUS) 300-250 million cell-mg Cap [...] PM EST Office [place] [phone] Paula Harris PA [facility] [place] [address] 01/26/2025 9:50 AM EDT Appointment Mammography/[place] [phone] Joan Deutsch APRN [facility] [place] [address] 01/26/2025 10:50 AM EDT Office [place] [phone] Joan Deutsch APRN [facility] [place] [address] documented as of this encounter Procedures Procedure Name Priority Date/Time Associated Diagnosis Comments MRI LUMBAR SPINE WITHOUT CONTRAST Routine 06/03/2013 2:18 PM EDT documented in this encounter Results * MRI lumbar spine without contrast (06/03/2013 2:18 PM EDT) Anatomical Region Laterality Modality L-spine Magnetic Resonan ce 06/03/2013 2:18 PM EDT Narrative 06/03/2013 3:35 PM EDT Examination MR Lumbar Spine WO Clinical History RIGHT L4 DISC HERNIATION Technique Multiplanar MRI of the lumbar spine was performed without IV contrast. Comparison None. Findings Grade 1 anterolisthesis of L4 and L5 is identified and alignment is otherwise normal. ??Fibrofatty marrow signal changes are present, compatible with mild degenerative disease. No aggressive marrow lesions are identified. The conus terminates normally at T12-L1. Gallstone noted within the gallbladder. Multiple uterine fibroids present. Sigmoid diverticuli noted. ??Retroperitoneal structures otherwise unremarkable. ?? Lumbar spine by level: ?? T12-L1: Central disc protrusion mild canal stenosis and no significant neural foraminal narrowing. ?? L1-L2: No significant canal or neural foraminal narrowing. ?? L2-L3: Disc bulge and small annular fissure resulting in mild central canal stenosis and no significant neural foraminal narrowing. ?? L3-L4: Disc bulge and facet arthropathy produce mild central canal stenosis and no significant neural foraminal narrowing. ?? L4-L5: Disc osteophyte complex, eccentric to the right is accompanied by severe facet arthropathy and small annular tear. A small portion of extruded disc with caudal migration at this level produces what canal stenosis and moderate right-sided neural foraminal narrowing. The left-sided foramen is patent. ?? L5-S1: Disc osteophyte complex, disc bulge and facet arthropathy result in no significant central canal stenosis or neuroforaminal narrowing. ?? Impression Moderate degenerative changes of the lower lumbar spine, most notably at L4-L5 where there is moderate right-sided foraminal narrowing. ?? Comment: The following findings are so common in people without low back pain that while we report their presence, they must be interpreted with caution and in the context of the clinical situation. (Reference-Jigna et al, Spine 2001) Findings: (prevalence in patients without low back pain), Disk degeneration (decreased T2 signal, height loss, bulge) (91%), Disk T2-signal loss (83%), Disk height loss (56%), Disk bulge (64%), Disk protrusion (32%), Annular fissure (38%). Film and interpretation reviewed by the attending Procedure Note Cornell Bustillos MD - 06/03/2013 Examination MR Lumbar Spine WO Clinical History RIGHT L4 DISC HERNIATION Technique Multiplanar MRI of the lumbar spine was performed without IV contrast. Comparison None. Findings Grade 1 anterolisthesis of L4 and L5 is identified and alignment isotherwise normal. Fibrofatty marrow signal changes are present, compatible withmild degenerative disease. No aggressive marrow lesions are identified. Theconus terminates normally at T12-L1. Gallstone noted within the gallbladder.Multiple uterine fibroids present. Sigmoid diverticuli noted. Retroperitoneal structures otherwise unremarkable. Lumbar spine by level: T12-L1: Central disc protrusion mild canal stenosis and no significantneural foraminal narrowing. L1-L2: No significant canal or neural foraminal narrowing. L2-L3: Disc bulge and small annular fissure resulting in mild centralcanal stenosis and no significant neural foraminal narrowing. L3-L4: Disc bulge and facet arthropathy produce mild central canalstenosis and no significant neural foraminal narrowing. L4-L5: Disc osteophyte complex, eccentric to the right is accompanied bysevere facet arthropathy and small annular tear. A small portion of extruded discwith caudal migration at this level produces what canal stenosis and moderate right-sided neural foraminal narrowing. The left-sided foramen is patent. L5-S1: Disc osteophyte complex, disc bulge and facet arthropathy result inno significant central canal stenosis or neuroforaminal narrowing. Impression Moderate degenerative changes of the lower lumbar spine, most notably atL4-L5 where there is moderate right-sided foraminal narrowing. Comment: The following findings are so common in people without low backpain that while we report their presence, they must be interpreted with cautionand in the context of the clinical situation. (Reference-Emyk et al, [id number]) Findings: (prevalence in patients without low back pain), Diskdegeneration (decreased T2 signal, height loss, bulge) (91%), Disk T2-signal loss(83%), Disk height loss (56%), Disk bulge (64%), Disk protrusion (32%), Annular fissure (38%). Film and interpretation reviewed by the attending Mariluz Watts MD IMG MRI ORDERABLES documented in this encounter Visit Diagnoses Not on filedocumented in this encounter Care Teams Sourcer Relationship Specialty Start Date End Date Mariluz Watts MD [address] [place] [address] PCP - General 08/22/10 documented as of this encounter
--- OUTSIDE RECORDS SUMMARY | 2024-05-18 20:00 | XMS_ITS | Encounter Summary ---
[place] [address] Care Team Providers Care Centrifugal Spinner Name Role Phone Mariluz Watts MD Primary Care Provider [phone] Reason for Referral * Physical Therapy (Routine) - Complete - Patient Will Schedule External Appt Specialty Diagnoses / Procedures Referred By John lyons Referred To Contact Physical Therapy Diagnoses S/P total hip arthroplasty Kian Ervin MD [address] [place] [address] Referral ID Status Reason Start Date Expiration Date Visits Requested Visits Authorized [id number] Complete - Patient Will Schedule External Appt Evaluate and Treat 2 02/14/2013 1 1 Reason for Visit * Reason Comments Follow Up Surgery DOS 07/22/12 Left AN T ARSLAN Encounter Details Date Type Department Care Team (Late st Contact Info) Description 08/18/2012 12:45 PM EST Office [place] [phone] Kian Ervin MD [address] [place] [address] S/P total hip arthroplasty (Primary Dx) Discharge Disposition: Home Social History [...] Sign Reading Time Taken Comments Blood Pressure 140/86 08/18/2012 1:01 PM EST Pulse 80 08/18/2012 1:01 PM EST Temperature - - Respiratory Rate - - Oxygen Saturation - - Inhaled Oxygen Concentration - - Weight 93 kg (205 lb) 08/18/2012 1:01 PM EST Height 168.9 cm (5' 6.5) 08/18/2012 1:01 PM EST Body Mass Index 32.59 08/18/2012 1:01 PM EST documented in this encounter Progress Notes * Kian Ervin MD - 08/18/2012 1:40 PM EST Kimi is doing very, she is a proximally 4 weeks after left anterior hip replacement. We had a small type I calcar fracture intraoperatively, necessitating the use of cerclage cables. I told her today after reviewing her x-rays that she go back up to full weightbearing as tolerated. She is having a lot of pain, has been using crutches, and otherwise had a small reaction to medication which manifest itself as a maculopapular rash. Review of systems: All negative except for as outlined above. Hip Questionnaire Responses: myD-H Hip & Knee 08/18/2012 UCLA Activity Score - MODEMS Expectation - MODEMS Satisfaction 66.66 VR12 - Physical Component Summary 23.3 VR12 - Mental Component Summary 35.12 Joint Infections - Bleeding Issues - Heart Issues - EQ5D - Mobility - EQ5D - Self Care - EQ5D - Usual Activities - EQ5D - Pain/Discomfort - EQ5D - Anxiety/Depression - EQ5D - Overall Health - Radiographs: Excellent implant position, no evidence of fracture propagation or implant subsidence. Examination: Looks very well, some minimal gapping at the superior 3 mm of the incision, consistentwith a small stitch abscess. Range of motion is painless through 95?? flexion, internal rotation 20, external rotation 40, abduction 35. Leg lengths are equal. Calves are soft. Plan: Doing very nicely, next visit in 2 months. Given a to of Iodosorb for the small open area over the incision, and I also gave her a physical therapy referral to that she can start outpatient therapy. documented in this encounter Plan of Treatment Upcoming Encounters Date Type Department Care Team (Late st Contact Info) Description 11/16/2024 1:00 PM EST Office Visit General Surgery at [place] [phone] Paula Harris PA [facility] [address] 01/26/2025 9:50 AM EDT Appointment Mammography/DXA at [place] [phone] Joan Deutsch [facility] [place] [address] 01/26/2025 10:50 AM EDT Office Visit General Surgery at [place] [phone] Joan Deutsch [facility] [place] [address] Scheduled Referrals Name Type Priority Associated Diagnoses Orde r Schedule Referral to Physical Therapy Outpatient Referral Routine S/P total hip arthroplasty Ordered: 08/18/2012 documented as of this encounter Visit Diagnoses Diagnosis S/P total hip arthroplasty- Primary Hip joint replacement by other means documented in this encounter Care Teams Centrifugal Spinner Relationship Specialty Start Date End Date Mariluz Watts MD [address] [place] [address] [address] [facility] 1 [place] [address] PCP - General 08/22/10 documented as of this encounter
--- OUTSIDE RECORDS SUMMARY | 2024-05-18 20:00 | XMS_ITS | Encounter Summary ---
Author Organization [facility] [place] [address] Care Team Providers Care Senior Warehouse Clerk Name Role Phone Mariluz Watts MD Primary Care Provider [phone] Encounter Details Date Type Department Care Team (Latest Contact Info) Description 04/21/2013 10:35 AM EDT - 04/21/2013 11:59 PM EDT Hospital Encounter XRay at [address] [place] [address] Status post hip replacement Social History Tobacco [...] Refills Start Date End Date LACTOBAC CMB #[id number] ORAL Take 1 tablet by mouth daily. 12/24/2012 05/01/2018 clarithromycin (BIAXIN) 500 mg Tablet Twice a day 12/15/201204/24 amoxicillin-clavulanat e (AUGMENTIN) 500-125 mg per tablet Take 4 tablets by mouth as needed. Reported on 12/11/2016 03/16/2013 05/01/2018 Zinc 50 mg Tab Take 1 tablet by mouth daily. 08/19/2013 erythromycin (CAIN-TAB) 250 mg EC tablet Take one tablet by mouth every other day. 60 tablet 1 01/02/2013 07/13/2013 metroNIDAZOLE (METROGEL) 1 % gel Apply topically daily. 45 g 3 12/31/2012 02/01/2014 [facility] cmb #[id number] (PROBIOTIC & ACIDOPHILUS) 300-250 million cell-mg Cap Take 1 tablet by mouth daily. 08/12/2013 Magnesium 500 mg Tab Take 1 tablet by mouth daily. 05/20/2013 Calcium 600 mg Cap Take 1 tablet [...] PM EST Office Visit [place] [address] Paula Harris PA [facility] [place] [address] 01/26/2025 9:50 AM EDT Appointment Mammography/[place] [phone] Joan Deutsch, [facility] [place] [address] 01/26/2025 10:50 AM EDT Office Visit [place] [phone] Joan Deutsch, [facility] [place] [address] documented as of this encounter Procedures Procedure Name Priority Date/Time Associated Diagnosis Comments XR PELVIS AP AND 2 VIEWS BOTH HIPS Routine 04/21/2013 10:51 AM EDT Hip joint replacement by other means documented in this encounter Results * XR pelvis AP and 2 views both hips (04/21/2013 10:51 AM EDT) Anatomical Region Laterality Modality Pelvis, Hip N/A Radiographic Crystal ging 04/21/2013 10:5 1 AM EDT Addenda Addendum on 04/24/2013 9:25 AM EDT Addendum Begins TECHNIQUE: ?? AP Pelvis and AP and Lateral of each hip. Addendum Ends Addendum on 04/23/2013 2:42 PM EDT Addendum Begins TECHNIQUE: ?? AP Pelvis and AP and Lateral of each hip. Addendum Ends Narrative 04/21/2013 2:11 PM EDT Examination AP PELVIS AND TWO VIEWS BOTH HIPS Clinical History Status Post ARSLAN Comparison August 18, 2012. Technique AP and oblique of each hip. Findings Bilateral total hip prostheses are present. ??The prostheses are well positioned without evidence of change or complication. ??There is a cerclage wire present at the trochanteric level of the left femur. Impression No complication or change. Procedure Note Cb Carrion MD - 04/24/2013 Examination AP PELVIS AND TWO VIEWS BOTH HIPS Clinical History Status Post ARSLAN Comparison August 18, 2012. Technique AP and oblique of each hip. Findings Bilateral total hip prostheses are present. The prostheses are wellpositioned without evidence of change or complication. There is a cerclage wirepresent at the trochanteric level of the left femur. Impression No complication or change. Kian Ervin MD IMG DX ORDERABLES documented in this encounter Visit Diagnoses Diagnosis Status post hip replacement Hip joint replacement by other means documented in this encounter Care Teams Senior Warehouse Clerk Relationship Specialty Start Date End Date Mariluz Watts MD [address] [place] [address] PCP - General 08/22/10 documented as of this encounter
--- OUTSIDE RECORDS SUMMARY | 2024-05-18 20:00 | XMS_ITS | Encounter Summary ---
Author Organization [facility], Located Within [facility] [place] [address] Care Team Providers Care Electrical Intern Name Role Phone Mariluz Watts MD Primary Care Provider [phone] Reason for Visit * Reason Comments Medication Refill Encounter Details Date Type Department Care Team (Late st Contact Info) Description 07/01/[address] [facility] [address] [place] [address] Chayo Willingham MD [facility] [place] [address] Social History Tobacco Use Types Packs/Day Years [...] encounter Miscellaneous Notes * Telephone Encounter - Emelia Hernandez LPN - 07/02/2013 1:29 PM EDT Spoke to patient, discussed reason for rx refusal. Discussed concerns regarding medication interactions. Patient reports that she has had a discussion with her PCP regarding this, and her PCP adjusted Celexa dose down to 20 mg. Would like to have patient be seen for follow-up regardless; patient isagreeable to this plan. Debbi, please call patient and schedule for follow-up in resident clinic as available. Thank you. * Telephone Encounter - Santo Gutierrez III, MD - 07/02/2013 1:00 PM EDT Needs a follow-up appointment at the end of the year Associated with cardiac arhythmia when taken with Celexa - should stop erythromycin documented in this encounter Plan of Treatment Upcoming Encounters Date Type Department Care Team (Late st Contact Info) Description 11/16/2024 1:00 PM EST Office Visit General Surgery at [place] [phone] Paula Harris PA [facility] [place] [address] 01/26/2025 9:50 AM EDT Appointment Mammography/DXA at [place] [phone] Joan Deutsch APRN [facility] [place] [address] 01/26/2025 10:50 AM EDT Office [place] [phone] Joan Deutsch APRN [facility] [place] [address] documented as of this encounter Visit Diagnoses Not on filedocumented in this encounter Care Teams Electrical Intern Relationship Specialty Start Date End Date Mariluz Watts MD [address] [place] [address] PCP - General 08/22/10 documented as of this encounter
--- OUTSIDE RECORDS SUMMARY | 2024-05-18 20:00 | XMS_ITS | Encounter Summary ---
Author Organization [facility] [place] [address] Care Team Providers Care Flotation Tender Helper Name Role Phone Mariluz Watts MD Primary Care Provider [phone] Encounter Details Date Type Department Care Team (Latest Contact Info) Description 12/09/2012 9:28 AM EDT - 12/09/2012 11:59 PM EDT Hospital Encounter XRay at [address] [place] [address] Breast cancer, stage 2 Social History Tobacco Use Types [...] PM EST Office [place] [phone] Paula Harris PA [facility] [place] [address] 01/26/2025 9:50 AM EDT Appointment Mammography/[place] [address] Joan Deutsch APRN [facility] [place] [address] 01/26/2025 10:50 AM EDT Office [place] [address] Joan Deutsch APRN [facility] [place] [place] [address] documented as of this encounter Procedures Procedure Name Priority Date/Time Associated Diagnosis Comments DXA CENTRAL SPINE, HIP, AND/OR WHOLE BODY (GENERIC) Routine 12/09/2012 10:54 AM EDT Malignant neoplasm of breast (female), unspecified site documented in this encounter Results * Dexa central-spine, hip, and/or whole body (12/09/2012 10:54 AM EDT) Anatomical Region Laterality Modality C-spine, Hip N/A Radiographic Crystal ging 12/09/2012 10:5 4 AM EDT Narrative 12/12/2012 9:33 AM EDT Examination DXA CENTRAL-SPINE,HIP, AND/OR WHOLE BODY Clinical History 66 year old woman with osteopenia on an aromatase inhibitor;last dexa 10/26/10 Technique Scans were acquired at the lumbar spine, and left forearm. The hip measurements were not obtained because the Patient has bilateral hip arthroplasties. ?? Findings Lowest T-score at a diagnostic region of interest: T-score: -1.4,ROMÁN: Distal 1/3 radius, WHO diagnosis: low bone mass or osteopenia ........Comparison......... Recent scan: 2010, Baseline scan: 2007 Total spine: Compared to the most recent scan, no significant change. ?? Compared to the baseline scan, no significant change. ?? Impression The measurements satisfied the WHO classification for low bone mass or osteopenia. There is no significant change since 2007. ?? _ Estimating Fracture Risk: The relationship between bone [...] from the tool's estimate. The tool does note take into account the dose-response associated with [...] BMD measurements and plots are available in [employer] under the imaging tab. Paper copies will be sent to providers without [employer] access. If you have received this report without the data sheet and do not have access to [employer], please contact Radiology Boat Rental Clerk at [phone] Saturday thru Saturday 8am-4pm. Procedure Note Marly Torres MD - 12/12/2012 Examination DXA CENTRAL-SPINE,HIP, AND/OR WHOLE BODY Clinical History 66 year old woman with osteopenia on an aromatase inhibitor;last dexa1 Technique Scans were acquired at the lumbar spine, and left forearm. The hipmeasurements were not obtained because the Patient has bilateral hip arthroplasties. Findings Lowest T-score at a diagnostic region of interest: T-score: -1.4,ROMÁN: Distal 1/3 radius, WHO diagnosis: low bone mass or osteopenia ........Comparison......... Recent scan: 2010, Baseline scan: 2007 Total spine: Compared to the most recent scan, no significant change. Compared to the baseline scan, no significant change. Impression The measurements satisfied the WHO classification for low bone mass or osteopenia. There is no significant change since 2007. _ Estimating Fracture Risk: The relationship between bone mineral density (BMD) and risk of fractureis well established. As BMD decreases, risk increases. Quantifying risk is difficult and is usually limited to estimation of the relative risk - aterm which may have limited value when trying to discuss an individual's risk. Estimating the absolute risk for a patient requires an understanding ofthe incidence rate in a given population and consideration of multiple,partially independent, risk factors in addition to BMD. The World Health Organization (WHO) has developed a fracture riskprediction tool that calculates a ten-year risk of major osteoporotic fracture basedon femoral neck bone density measurements and nine clinical risk factors for individuals who have not been treated for osteoporosis. This is available through an interactive web-based interface (http://www.shef.ac.uk/FRAX/)and can be used to estimate a given patient's absolute risk of majorosteoporotic fracture or hip fracture over the next 10 years. These estimates may prove useful when discussing risk with a patient. It is important, however, to understand the tool's limitations and how a given individual's risk might differ from the tool's estimate. The tool does note take into account the dose-response associated with most risk factors. For example, thesignificant increase in risk associated with multiple prior fractures compared to asingle prior fracture is not taken into account. Similarly, the location of aprevious fracture, the amount of glucocorticoids and number of cigarettes smokedare not considered. These limitations are discussed in a Frequently AskedQuestions section of the [employer] website which you are encouraged to review. DEXA data sheets with BMD measurements and plots are available in [employer] the imaging tab. Paper copies will be sent to providers without [employer]. If you have received this report without the data sheet and do not haveaccess to E-, please contact Radiology Boat Rental Clerk at [phone] Saturdaythru Saturday 8am-4pm. Abrahan Merlos MD IMG DEXA ORDERABLES documented in this encounter Visit Diagnoses Diagnosis Breast cancer, stage 2 Malignant neoplasm of breast (female), unspecified site documented in this encounter Care Teams Flotation Tender Helper Relationship Specialty Start Date End Date Mariluz Watts MD [address] [facility] [address] [place] [address] PCP - General 08/22/10 documented as of this encounter
--- OUTSIDE RECORDS SUMMARY | 2024-05-18 20:00 | XMS_ITS | Encounter Summary ---
[place] [address] Care Team Providers Care Licensed Chemical Spray Technician Name Role Phone Mariluz Watts MD Primary Care Provider [phone] Reason for Visit * Reason Onset Date Comments Other 08/25/2012 Encounter Details Date Type Department Care Team (Late st Contact Info) Description 08/25/2012 Telephone Hematology [place] [address] Gemini Lawrence RN Other Social History Tobacco Use Types [...] Encounter - Gemini Lawrence RN - 08/25/2012 9:04 AM EST Script requested for Anastrozole, med. history indicates that a script was generated foranastrozoleon 07/25/12. Prescriber Francheska BERG. Called [facility] to verify that they received the script. The last script [facility] filled was in , 90/day supply. Patient would now be due for anotherscript. Called patient [phone] (H),to see of she has a script or wishes to have another generated. [facility] does not have a a script, would like another generated. Script will be generated for anastrozole 1 mg dispense #90 with 3 refills. Script will be pended for approval and signature, prior to e-scribe. documented in this encounter Plan of Treatment Upcoming Encounters Date Type Department Care Team (Late st Contact Info) Description 11/16/2024 1:00 PM EST Office [place] [phone] Paula Harris PA [facility] [place] [address] 01/26/2025 9:50 AM EDT Appointment Mammography/DXA at [place] [phone] Joan Deutsch [facility] [place] [address] 01/26/2025 10:50 AM EDT Office [place] [phone] Joan Deutsch SWITCHBOARD OPERATOR RECEPTIONIST [facility] [place] [address] documented as of this encounter Visit Diagnoses Not on filedocumented in this encounter Care Teams Licensed Chemical Spray Technician Relationship Specialty Start Date End Date Mariluz Watts MD [address] [place] [address] [address] [place] [address] PCP - General 11/23/10 documented as of this encounter
--- OUTSIDE RECORDS SUMMARY | 2024-05-18 20:00 | XMS_ITS | Encounter Summary ---
Author Organization [facility] [place] [address] Care Team Providers Care Chaperone Name Role Phone Mariluz Watts MD Primary Care Provider [phone] Encounter Details Date Type Department Care Team (Latest Contact Info) Description 06/10/2013 12:53 PM EDT - 06/10/2013 11:59 PM EDT Hospital Encounter XRay at [address] [place] [address] CLINIC, Morgan Palma MD [facility] [place] [address] Arthritis of right foot Discharge Disposition: Home Social [...] Refills Start Date End Date LACTOBAC CMB #[id number] ORAL Take 1 tablet by mouth daily. [...] 45 g 3 12/31/2012 02/01/2014 lactobac cmb #[id number] (PROBIOTIC & ACIDOPHILUS) 300-250 million cell-mg Cap [...] needed. 08/12/2013 documented as of this encounter Procedure Notes * Alexandro Brito MD - 06/10/2013 4:24 PM EDTProcedure(s): ARTHROCENTESIS,DRAIN/INJECT JOINT/BURSA Pre-Procedure Diagnose(s): Pain [employer] [id number] HISTORY: Pain right foot Right navicular cuneiform JOINT INJECTION UNDER FLUOROSCOPY TECHNIQUE: After an extensive conversation with the patient regarding risks and benefits, oral and written consent were obtained. The patient was placed supine on the fluoroscopic table. The skin overlying the Right navicular cuneiform joint was prepped and draped in the usual aseptic manner. 1% Lidocaine wasused to achieve local anesthesia. Under fluoroscopic guidance, a 25 gauge needle was advanced into the joint space. Small amount of contrast was injected to the document needle placement. A mixture of Ropivacaine and depomedrol was injected. All needles removed at end of procedure. FINDINGS: 1. Small amount of injected contrast in the joint space. Contrast extends into Lis Franc joint and into the remainder of the midfoot. 2. PAIN SCORE: Before: 3 /10 After: 3. Medications: Lidocaine 1% - <5 ml, for subcutaneous anesthesia Ropivacaine HCL 0.5% - 1 ml (5mg), Depomedrol: 20 mg, Omnipaque 300 - 1ml Fluoroscopy time: 45 sec COMPLICATIONS: None immediate. POST-PROCEDURE CARE: Information regarding monitor of infection, post- procedural pain and management of steroid flare were reviewed with patient. IMPRESSION: Uneventful Right navicular cuneiform joint injection under fluoroscopy. Resident/ Fellow :none Attending: Daryl documented in this encounter Miscellaneous Notes * Miscellaneous - Provider, Scanning - 06/15/2013 12:17 PM EDT documented in this encounter Plan of Treatment Upcoming Encounters Date Type Department Care Team (Late st Contact Info) Description 11/16/2024 1:00 PM EST Office Visit General Surgery at [place] [phone] Paula Harris PA [facility] [place] [address] 01/26/2025 9:50 AM EDT Appointment Mammography/DXA at [place] [phone] [facility] [place] [address] 01/26/2025 10:50 AM EDT Office Visit General Surgery at [place] [phone] Joan Deutsch, [facility] [place] [place] [address] documented as of this encounter Procedures Procedure Name Priority Date/Time Associated Diagnosis Comments XR FLUORO INJECTION FL DRAIN SMALL CLAUDY Routine 06/10/2013 1:50 PM EDT documented in this encounter Results * XR Fluoro injection FL drain small CLAUDY (06/10/2013 1:50 PM EDT) Anatomical Region Laterality Modality N/A Radiographic Crystal ging 06/10/2013 1:50 PM EDT Impressions 06/12/2013 8:01 AM EDT IMPRESSION: ?? Uneventful Right navicular cuneiform joint injection under fluoroscopy. ?? Resident/ Fellow :none ?? Attending: Daryl ?? Narrative 06/12/2013 8:01 AM EDT HISTORY: Pain right foot ?? Right navicular cuneiform JOINT INJECTION UNDER FLUOROSCOPY ?? TECHNIQUE: ?? After an extensive conversation with the patient regarding risks and benefits, oral and written consent were obtained. The patient was placed supine on the fluoroscopic table. The skin overlying the Right navicular cuneiform joint was prepped and draped in the usual aseptic manner. 1% Lidocaine was used to achieve local anesthesia. Under fluoroscopic guidance, a 25 gauge needle was advanced into the joint space. Small amount of contrast was injected to the document needle placement. A mixture of Ropivacaine and depomedrol was injected. All needles removed at end of procedure. ?? FINDINGS: ?? 1. Small amount of injected contrast in the joint space. Contrast extends into Lis Franc joint and into the remainder of the midfoot. ?? 2. PAIN SCORE: ?? Before: 10 ?? After: ?? 3. Medications: ?? Lidocaine 1% - <5 ml, for subcutaneous anesthesia ?? Ropivacaine HCL 0.5% - 1 ml (5mg), ?? Depomedrol: 20 mg, ?? Omnipaque 300 - 1ml ?? Fluoroscopy time: 45 sec ?? COMPLICATIONS: None immediate. ?? POST-PROCEDURE CARE: Information regarding monitor of infection, post- procedural pain and management of steroid flare were reviewed with patient. ?? Procedure Note Alexandro Brito MD - 06/12/2013 HISTORY: Pain right foot Right navicular cuneiform JOINT INJECTION UNDER FLUOROSCOPY TECHNIQUE: After an extensive conversation with the patient regarding risks andbenefits, oral and written consent were obtained. The patient was placed supine onthe fluoroscopic table. The skin overlying the Right navicular cuneiform jointwas prepped and draped in the usual aseptic manner. 1% Lidocaine was used to achieve local anesthesia. Under fluoroscopic guidance, a 25 gauge needlewas advanced into the joint space. Small amount of contrast was injected tothe document needle placement. A mixture of Ropivacaine and depomedrol was injected. All needles removed at end of procedure. FINDINGS: 1. Small amount of injected contrast in the joint space. Contrast extendsinto Lis Franc joint and into the remainder of the midfoot. 2. PAIN SCORE: Before: 3 /10 After: 3. Medications: Lidocaine 1% - <5 ml, for subcutaneous anesthesia Ropivacaine HCL 0.5% - 1 ml (5mg), Depomedrol: 20 mg, Omnipaque 300 - 1ml Fluoroscopy time: 45 sec COMPLICATIONS: None immediate. POST-PROCEDURE CARE: Information regarding monitor of infection, post- procedural pain and management of steroid flare were reviewed withpatient. IMPRESSION IMPRESSION: Uneventful Right navicular cuneiform joint injection under fluoroscopy. Resident/ Fellow :none Attending: Daryl Morgan Kong MD IMG FLUORO ORDERABLE S documented in this encounter Visit Diagnoses Diagnosis Arthritis of right foot Unspecified arthropathy, ankle and foot documented in this encounter Administered Medications Inactive Administered Medications - up to 3 most recent administrations Medication Order MAR Action Action Date Dose Rate Site ropivacaine (PF) 5 mg/mL (0.5 %) 4 mL with methylPREDNISolone acetate 40 mg, iohexol 4 mL injection Intra-articular, ONCE, 1 dose, On Sat06/10/13 at 1415 Given 06/10/2013 1:30 PM EDT documented in this encounter Care Teams Chaperone Relationship Specialty Start Date End Date Mariluz Watts MD [address] [place] [address] PCP - General 08/22/10 documented as of this encounter
--- OUTSIDE RECORDS SUMMARY | 2024-05-18 20:00 | XMS_ITS | Encounter Summary ---
[place] [address] Care Team Providers Care Financial Risk Manager Name Role Phone Mariluz Watts MD Primary Care Provider [phone] Encounter Details Date Type Department Care Team (Late st Contact Info) Description 11/12/2012 Orders [place] [phone] Kian Ervin MD [address] [place] [address] Social History Tobacco Use Types Packs/Day Years [...] PM EST Office [place] [phone] Paula Harris PA [facility] [place] [address] 01/26/2025 9:50 AM EDT Appointment Mammography/[place] [phone] Joan Deutsch, [facility] [place] [address] 01/26/2025 10:50 AM EDT Office [place] [phone] Joan Deutsch, [facility] [place] [address] documented as of this encounter Procedures Procedure Name Priority Date/Time Associated Diagnosis Comments FILM LIBRARY STORAGE ONLY DX HIP Routine 11/12/2012 1:52 PM EST documented in this encounter Results * Film Library- Storage only DX Hip (11/12/2012 1:52 PM EST) 11/12/2012 1:52 PM EST Narrative RAD - 04/19/2014 7:02 PM EDT This is a non-reportable exam. Procedure Note Blane Galvan - 04/19/2014 This is a non-reportable exam. Kian Ervin MD IMG FILM LIBRARY ORD ERABLES [facility] [facility] [address] [facility] [place] [address] documented in this encounter Visit Diagnoses Not on filedocumented in this encounter Care Teams Financial Risk Manager Relationship Specialty Start Date End Date Mariluz Watts MD [address] [place] [address] PCP - General 08/22/10 documented as of this encounter
--- OUTSIDE RECORDS SUMMARY | 2024-05-18 20:00 | XMS_ITS | Encounter Summary ---
Author Organization [facility] [place] [address] Care Team Providers Care Boiler Blower Name Role Phone Mariluz Watts MD Primary Care Provider [phone] Reason for Visit * Reason Comments Aftercare Of Tjr bilateral arslan 2011 Encounter Details Date Type Department Care Team (Latest Contact Info) Description 07/13/2013 2:50 PM EDT Office [place] [address] Nick Ruiz MD [address] [place] [address] Charity Norris APRN [facility] [place] [address] H/O bilateral hip replacements (Primary Dx); Psoas tendinitis; Physical deconditioning Discharge Disposition: Home Social History Tobacco Use [...] Sign Reading Time Taken Comments Blood Pressure 132/86 07/13/2013 3:28 PM EDT Pulse 114 07/13/2013 3:28 PM EDT Temperature - - Respiratory Rate - - Oxygen Saturation - - Inhaled Oxygen Concentration - - Weight 99.4 kg (219 lb 3.2 oz) 07/13/2013 3:28 P M EDT Height 167.6 cm (5' 6) 07/13/2013 3:28 PM EDT Body Mass Index 35.38 07/13/2013 3:28 PM EDT documented in this encounter Progress Notes * Charity Norris, POLISHER APPRENTICE - 07/13/2013 3:32 PM EDT Chief Complaint: Both hip ARSLAN. Annual appointment. Pertinent Surgical History: Date: Jul 22- Surgeon: Nick Ruiz MD Pre-operative diagnosis: Left hip osteoarthritis Body mass index is 35.35 kg/(m^2). Surgical Procedure Performed: Injection left hip with 10 cc marcaine 0.25% with epi, into skin and subcutaneous tissues (CPT [id number]) left total hip arthroplasty, anterior Hueter approach with [place] table (CPT code 11141) Left hip intraoperative radiologic examination (CPT code 37685) Amicar infusion (5 g IV load, then 1g/hr x 3 hrs) Components Used: Almira Accolade stem, size 4, 127 degrees Trident PSLcup, 52 mm, solid 32 mm ID, alumina 32-4 mm alumina head Bearing surface: ceramic on ceramic Complications: High EBL Type 1 calcar fracture SURGERY DATE: 03/06/2005 Surgeon: NICK RUIZ MD ([id number]) Date: March 06, 2005 Surgeon: Nick Ruiz MD Pre-operative diagnosis: Right hip osteoarthritis Surgical Procedure Performed: Right total hip arthroplasty, cementless, [id number] Components Used: Almira Trident 52 shell outer diameter Femoral head 32-4 mm Nicole Accolade Femoral stem size 4, 127 deg HPI: This is a 67 yo female who presents for routine follow up for both hip ARSLAN. She has had a challenging year. She fell in October 2012 and per patient report had a bleed in the hip. Has a bleeding disorder. Treated by outside provider. X-ray reportedly negative for fracture. She tells me thatshe tried to make an appointment with Dr. Ruzi. Yet, Was told that he was unavailable. I find no do cumentation in her chart about this. In any event, She tells me that she went on to heal without any problems. See previous detailed notes from Linsey BERG regarding struggles with left hip pain. She feels that she has actually turned the corner with this and has made some gains with PT focusing on the anterior aspect of her hip over the psoas tendon/bursa. Now followed by a senior product analyst for multiple arthralgia. Began plaquenil therapy with some improvement in joint pain and systemic complaints. However, She did develop a rash from the plaquenil therefore had to stop this DMARD. She is following with her Global Marketing Specialist in regards to follow for treatment options. 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 No other reported injuries or infections . Baseline numbness and tingling in feet. Having foot surgery by Dr. Kong for a tendon problems. + dupuytren's contractures in hands and is anxious about crutch use. Has not investigated rwandan crutches or a scooter. No other complaints at this time . Here for definitive management. ROS: No fevers or chills. No systemic complaints. No constitutional complaints. No current chest pain or SOB. No current pulmonary complaints. No GI or complaints. Allergies Allergen Reactions ??? Hymenoptera Allergenic Extract Anaphylaxis Bee Stings ??? Tetracyclines Anaphylaxis History Substance Use Topics ??? Smoking status: Former Smoker -- 1.0 packs/day for 3 years Types: Cigarettes Quit date: 09/30/1968 ??? Smokeless tobacco: Never Used ??? Alcohol Use: No Patient Active Problem List Diagnosis Code ??? Anxiety associated with depression 300.4 ??? 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 Diverticulosis 562.10 ??? Degenerative joint disease 715.90 ??? Breast cancer, stage 2 174.9 ??? Rosacea 695.3 ??? GI bleeding 578.9 ??? Hip pain 719.45 ??? S/P hip replacement V43.64 ??? S/P Left Anterior ARSLAN- 07/22/12 (Dr. Ruiz) V43.64 ??? S/P tubal ligation V26.51 ??? Osteoarthritis of left knee 715.96 ??? 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 Aortic valve sclerosis 424.1 ??? Postoperative anemia due to acute blood loss 285.1 ??? Dupuytren's contracture 728.6 ??? Status post hip replacement V43.64 Past Surgical History reviewed in EDH Physical Exam: Filed Vitals: 07/13/13 1528 BP: 132/86 Pulse: 114 Height: 167.6 cm (5' 6) Weight: 99.428 kg (219 lb 3.2 oz) Body mass index is 35.38 kg/(m^2). General: Alert and Oriented x 3. Sitting in chair. NAD Neck: supple no JVD Chest: RR: 12. Non-labored. Abdomen: Soft and non-tender. Ortho: Uses 2 hands to rise from chair. No assistive devices. Positional changes are brisk. Able to get onand off exam table without difficulty. No assistive devices. Non-antalgic gait. Inspection: Leg lengths equal. Palpation. Mild tenderness along left trochanteric bursa and IT band Able to SLR bilaterally. Left hip flexor/psoas bursa + mild pain with supine SLR with left foot externally rotated. Right hip with painless ROM: Flexion: 110. ER: 35. IR: 25. Abduction : 35. Adduction : 20. NMI distally. No pain over the hip flexor or GTB. Left hip- flexion 95. External rot 30. Internal rot 15. Abduction 30. Adduction 5. Left hip + mild pain over the psoas/bursa/tendon with resisted left hip SLR with her left foot externally rotated. No pain over the GTB. Non-focal lumbar spine exam. Negative nerve root tension sign. EHL/FHL 5/5. No clonus. Down going toes . Full light touch sensation . Capillary refill brisk bilaterally. DP 2+ =/=. Xray: Reviewed image by image in the office today with Dr. Ruiz. No fracture or dislocation. No appreciated change of implant. No malpositioning. No subsidence. No radiolucencies. A/P: H and P reviewed with Dr. Ruiz. Both hip ARSLAN. Right hip s/p fall 2012 with bleed into joint. Radiographically, No fracture or complications noted. Left hip pain + psoas tendonitis/bursitis clinically, radiographically no complications noted. Plan: Patient has some deconditioning clinically as well as left hip psoas/bursitis/tendonitis. Left hip pain is responding to physical therapy. Right hip is relatively quiescent at this time. She continues to use an nsaid on a regular basis. We will see her in 12 months with both hip X-rays. Sooner prn. We discussed the appropriate precautions surrounding dental prophylaxis. I stressed that she shoulduse oral antibiotics prior to any further dental work for the lifetime of the joint replacement. Werosso discussed maintaining good foot care and giving prompt attention to any source of infection throughout the body including foot ulcers and urinary tract infections. documented in this encounter Plan of Treatment Upcoming Encounters Date Type Department Care Team (Late st Contact Info) Description 11/16/2024 1:00 PM EST Office Visit General Surgery at [place] [phone] Paula Harris PA [facility] [place] [address] 01/26/2025 9:50 AM EDT Appointment Mammography/[place] [address] Joan Deutsch APRN [facility] [place] [address] 01/26/2025 10:50 AM EDT Office Visit General Surgery at [place] [phone] Joan Deutsch APRN [facility] [place] [address] documented as of this encounter Visit Diagnoses Diagnosis H/O bilateral hip replacements- Primary Hip joint replacement by other means Psoas tendinitis Enthesopathy of hip region Physical deconditioning Debility, unspecified documented in this encounter Care Teams Boiler Blower Relationship Specialty Start Date End Date Mariluz Watts MD [address] [place] [address] PCP - General 08/22/10 documented as of this encounter
--- OUTSIDE RECORDS SUMMARY | 2024-05-18 20:00 | XMS_ITS | Encounter Summary ---
Author Organization [facility] [place] [address] Care Team Providers Care Grounds Cleaner Name Role Phone Mariluz Watts MD Primary Care Provider [phone] Encounter Details Date Type Department Care Team (Late st Contact Info) Description 05/25/2013 Orders [place] [address] Scar Aviles II, [facility] [place] [address] Social History Tobacco Use Types Packs/Day Years [...] Office [place] [phone] Paula Harris, [facility] [place] [address] 01/26/2025 9:50 AM EDT Appointment Mammography/[place] [phone] Joan Deutsch, [facility] [place] [address] 01/26/2025 10:50 AM EDT Office [place] [phone] Joan Deutsch, [facility] [place] [address] documented as of this encounter Visit Diagnoses Not on filedocumented in this encounter Care Teams Grounds Cleaner Relationship Specialty Start Date End Date Mariluz Watts MD [address] [place] [address] PCP - General 08/22/10 documented as of this encounter
--- OUTSIDE RECORDS SUMMARY | 2024-05-18 20:00 | XMS_ITS | Encounter Summary ---
[place] [address] Care Team Providers Care Child And Adolescent Therapist Name Role Phone Mariluz Watts MD Primary Care Provider [phone] Reason for Visit * Reason Comments Medication Refill Encounter Details Date Type Department Care Team (Late Contact Info) Description 08/25/2012 Refill Hematology [place] [address] Nhi Chadwick CERTIFIED ORTHOTIC FITTER [facility] DR HEMATOLOGY/[place] [address] Social History Tobacco Use Types Packs/Day Years [...] PM EST Office [place] [address] Paula Harris PA [facility] [place] [address] 01/26/2025 9:50 AM EDT Appointment Mammography/[place] [address] Joan Deutsch, [facility] [place] [address] 01/26/2025 10:50 AM EDT Office Visit General Surgery at [place] [phone] Joan Deutsch, [facility] [place] [address] documented as of this encounter Visit Diagnoses Not on filedocumented in this encounter Care Teams Child And Adolescent Therapist Relationship Specialty Start Date End Date Mariluz Watts MD [address] [facility] [place] [address] PCP - General 08/22/10 documented as of this encounter
--- OUTSIDE RECORDS SUMMARY | 2024-05-18 20:00 | XMS_ITS | Encounter Summary ---
Author Organization [facility] [place] [address] Care Team Providers Care Fish Roe Processor Name Role Phone Mariluz Watts MD Primary Care Provider [phone] Reason for Visit * Reason Comments Left Hand Pain Encounter Details Date Type Department Care Team (Late st Contact Info) Description 12/03/2012 12:30 PM EST Office [place] [address] Lev Garg MD [facility] [place] [address] Dupuytren's contracture (Primary Dx) Discharge Disposition: Home Social History [...] Sign Reading Time Taken Comments Blood Pressure 134/82 12/03/2012 12:36 PM EST Pulse 113 12/03/2012 12:36 PM EST Temperature - - Respiratory Rate - - Oxygen Saturation - - Inhaled Oxygen Concentration - - Weight 90.7 kg (200 lb) 12/03/2012 12:36 PM EST Height 168.9 cm (5' 6.5) 12/03/2012 12:36 PM ES T Body Mass Index 31.8 12/03/2012 12:36 PM EST documented in this encounter Progress Notes * Jenny Baeza PA - 12/03/2012 12:51 PM EST PATIENT NAME: Diamond Gaming AGE: 66 y.o. MR#: [id number] DATE OF VISIT: 12/03/2012 DATE OF INJURY/ONSET: June 2012 STAFF: Dr. Garg CHIEF COMPLAINT: left palm nodules HISTORY OF PRESENT ILLNESS: Ms. Gaming is a right hand dominant 66 y.o. female who comes into clinictoday for evaluation of the left hand. She was [place] [facility] [place] by Mariluz Watts MD. The patient states that she noticed that she was developing painful nodules in her left palm chart afterher hip replacement in June. She states that this is causing discomfort while she was trying to u se her crutches. She does have a family history of Dupuytren's disease. She has not noticed any contracture of her fingers, but she has been working on trying to keep her finger range of motion intact. She denies having any ectopic disease. She states that the nodules or not painful at this point. She is here today to discuss treatment options. PAST MEDICAL HX: Past Medical History Diagnosis Date ??? Anxiety associated with depression ??? Benign hypermobility syndrome ??? Diverticulosis ??? Degenerative joint disease ??? Breast cancer, stage 2 01/25/2010 ??? Rosacea 03/25/2011 ??? GI bleeding 03/25/2011 ??? Osteoarthritis of left knee 07/25/2012 ??? 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 Aortic valve sclerosis 07/25/2012 PAST SURGICAL HX: Reviewed in dD-H Medications and Allergies were reviewed in eD-H SOCIAL HX: Smoking: nonsmoker EtOH: denies Occupation: retired ROS: Constitutional: neg HEENT: positive for URI Cardiac: neg Pulmonary: neg GI/: neg Endocrine: neg Skin: neg Musculoskeletal: see HPI PHYSICAL EXAM: Ms. Gaming is a 66 y.o. female who is alert and oriented. She appears in no acute discomfort and is resting comfortably in the exam room. Inspection: Nodules over the palmar ulnar aspect of the left hand along the fourth metacarpal. There is no obvious cords extending into the digits. Skin is intact without erythema, ecchymosis, or swelling. Palpation: Palpable nodules in the palm without discrete cord. Wrist and hand are otherwise nontender to palpation. ROM/Strength: FDS, FDP, EPL, FPL tendons are intact. She is able to attain full extension of her fourth and fifth digits. There is no flexion contracture at the MCP or PIP joints. She is able to fully abduct her fingers as well. Orthopedic testing: Negative table top test Neurovascular: Normal motor function of the radial, median, and ulnar nerves. Normal sensation along radial, median, and ulnar nerve distributions. Good hand perfusion. RADIOLOGICAL STUDIES: X-rays show no acute fracture or dislocation. There are some mild arthritic change noted at the IP joints. ASSESSMENT: left hand dupuyren's nodule PLAN: Ms. Gaming and I discussed her radiologic findings and physical exam findings. We discussed treatment options for dupuytren's disease including observation, collagenase injection, needle aponeurotomy, and surgical fasciectomy. We also talked about the natural course of the disease including the unpredictable rate of worsening and recurrance. Risks associated with treatment were discussed including infection, nerve/blood vessel/tendon injury, incomplete correction of the disease, and recurrence. We discussed that we typically do not treat nodules and do not recommend treatment until thereis at least a 30 degree contracture at the MCP joint or contracture at the PIP joint. She understands this and is in agreement with our plan to continue to monitor her symptoms. She will return for follow up as needed. The patient understands to contact us if they have any other questions or concerns. documented in this encounter Plan of Treatment Upcoming Encounters Date Type Department Care Team (Late st Contact Info) Description 11/16/2024 1:00 PM EST Office Visit General Surgery at [place] [phone] Paula Harris PA [facility] [place] [address] 01/26/2025 9:50 AM EDT Appointment Mammography/DXA at [place] [phone] Joan Deutsch APRN [facility] [place] [address] 01/26/2025 10:50 AM EDT Office [place] [address] Joan Deutsch, [place] [facility] [place] [address] documented as of this encounter Visit Diagnoses Diagnosis Dupuytren's contracture- Primary Contracture of palmar fascia documented in this encounter Care Teams Fish Roe Processor Relationship Specialty Start Date End Date Mariluz Watts MD [address] [place] [address] PCP - General 08/22/10 documented as of this encounter
--- OUTSIDE RECORDS SUMMARY | 2024-05-18 20:00 | XMS_ITS | Encounter Summary ---
Author Organization [facility] [place] [address] Care Team Providers Care Corporate Claims Examiner Name Role Phone Mariluz Watts MD Primary Care Provider [phone] Encounter Details Date Type Department Care Team (Late st Contact Info) Description 09/03/2012 Orders [place] [address] Lev Garg MD [facility] [address] [place] [address] Hand pain (Primary Dx) Social History Tobacco Use Types [...] EST Office [place] [phone] Paula Harris PA [facility] [place] [address] 01/26/2025 9:50 AM EDT Appointment Mammography/[place] [phone] Joan Deutsch, GE [facility] [place] [address] 01/26/2025 10:50 AM EDT Office [place] [phone] Joan Deutsch, SUPERVISOR [employer]T [employer] LINK ASSEMBLY [facility] [place] [address] documented as of this encounter Results * XR hand diagnostic [...] in this encounter Visit Diagnoses Diagnosis Hand pain- Primary Pain in limb Hand pain Pain in limb documented in this encounter Care Teams Corporate Claims Examiner Relationship Specialty Start Date End Date Mariluz Watts MD [address] [place] [address] [address] [facility] [address] [place] [address] PCP - General 08/22/10 documented as of this encounter
--- OUTSIDE RECORDS SUMMARY | 2024-05-18 20:00 | XMS_ITS | Encounter Summary ---
Author Organization [facility] [place] [address] Care Team Providers Care Reproduction Artist Name Role Phone Mariluz Watts MD Primary Care Provider [phone] Reason for Visit * Reason Comments Follow-up Encounter Details Date Type Department Care Team (Late st Contact Info) Description 12/09/2012 11:30 AM EDT Follow-Up [place]ology [place] [address] CLINIC, DR KATARINA Merlos, Abrahan Chavarria MD [facility] [address] HEMATOLOGY/ONCOL[place] [address] Breast cancer, stage 2 (Primary Dx) Discharge Disposition: Home Social History [...] Sign Reading Time Taken Comments Blood Pressure 138/78 12/09/2012 11:31 AM EDT Pulse 102 12/09/2012 11:31 AM EDT Temperature 37.1 ??C (98.8 ??F) 12/09/2012 1 1:31 AM EDT Respiratory Rate 16 12/09/2012 11:3 1 AM EDT Oxygen Saturation 97% 12/09/2012 11: 31 AM EDT Inhaled Oxygen Concentration - - Weight 94.8 kg (208 lb 15.9 oz) 013 11:31 AM EDT Height 168 cm (5' 6.14) 12/09/2012 11: 31 AM EDT Body Mass Index 33.59 12/09/2012 11:31 AM EDT documented in this encounter Patient Instructions * Patient Instructions* Abrahan Merlos MD - 12/09/2012 11:54 AM EDT Your exam looks good and I don't see any evidence of breast cancer recurrence. 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 We'll be following the wrist in the future instead of the hip. You are now longterm through five years of anastrozole. I'll see you back here in six months. documented in this encounter Progress Notes * Abrahan Merlos MD - 12/09/2012 12:11 PM EDT Subjective: Patient ID: Diamond Gaming is a 66 y.o. female with Stage II breast cancer, [...] urinary incontinence and vaginal dryness, she has 20-25 hot flashes each day, she has soft fragilenails, and she has increased arthralgias of her left hand and thumb, wrists, feet, and ankles. Interval History: Diamond underwent a left total hip replacement on July 22, 2012, which went well. She continues to have generalized joint pain, particularly in her left knee, right foot, and in the first CMC joints of both hands. She developed a Dupuytren's contracture of the left hand from using a cane. She has also lost strength in her hands. She has pain at the sites of falls onto her leftpretibial plateau and her right hip. Her pain is controlled with ibuprofen 600 mg QID. She has hot flashes 8-10 times a day. She had a urinary tract infection last summer, but she has not had one since. She otherwise denies vaginal dryness. She has had a persistent cough with sputum production since New Year's as well as a sinus headache. She is a bit dissatisfied with the asymmetry between the two breasts. She continues to take about 1900 units of Vitamin D daily. Review of Systems She denies depression, breast pain or a palpable breast mass, shortness of breath, chest pain, nausea, vomiting, diarrhea, constipation, double vision, skin rashes, pain, [...] no guarding. Musculoskeletal: She exhibits no edema. Lymphadenopathy: She has no cervical adenopathy. Neurological: She is alert and oriented to person, place, and time. Skin: Skin is warm and dry. No erythema. Psychiatric: She has a normal mood and affect. The most recent mammograms from November 01, 2011 showed a stable fibroglandular pattern without significant change. There were post-surgical changes bilaterally. The breasts were of scattered density. The mammograms were repeated today, and the results are pending. Today's Dexa scan shows T scores of -1.2 in the lumbar spine (down from -1.1 in September 2010), and -1.5 in the left wrist. No prior study had been done of the left wrist. The most recent CBC from July 18, 2012 showed a WBC count of 6.3, Hgb 14.0, Hct 42.6, platelets 241, ANC 3830, and the most recent LFT's include an albumin of 4.6, bilirubin 0.2, alk phos 97, AST 13, and ALT 15. The 25-hydroxy Vitamin D on April 06, 2011 was 41 ng/mL. Assessment and Plan: Ms. Gaming is doing well and has no evidence of breast cancer recurrence. She has persistent hot flashes and arthralgias which were present before the start of the anastrozole. I offered her a referral back to Plastic Surgery to readdress the asymmetry between the breasts, and she declined. Her bonedensity has been fairly stable over the first two years of the aromatase inhibitor. She will hopefully be able to complete a five year course of anastrozole in another 2.5 years, in April of 2015. Iwill see her next in followup in six months. Abrahan Merlos MD team primary care physician in Hematology-Oncology documented in this encounter Plan of Treatment Upcoming Encounters Date Type Department Care Team (Late st Contact Info) Description 11/16/2024 1:00 PM EST Office Visit General Surgery at [place] [phone] Paula Harris PA [facility] [place] [address] 01/26/2025 9:50 AM EDT Appointment Mammography/[place] [address] Joan Deutsch, [facility] [place] [address] 01/26/2025 10:50 AM EDT Office [place] [phone] Joan Deutsch, [facility] [place] [address] documented as of this encounter Visit Diagnoses Diagnosis Breast cancer, stage 2- Primary Malignant neoplasm of breast (female), unspecified site documented in this encounter Care Teams Reproduction Artist Relationship Specialty Start Date End Date Mariluz Watts MD [address] [place] [address] [address] PCP - General 08/22/10 documented as of this encounter
--- OUTSIDE RECORDS SUMMARY | 2024-05-18 20:00 | XMS_ITS | Encounter Summary ---
Author Organization [facility] [place] [address] Care Team Providers Care Admissions Representative Name Role Phone Mariluz Watts MD Primary Care Provider [phone] Reason for Visit * Reason Comments Follow-up Encounter Details Date Type Department Care Team (Late st Contact Info) Description 06/12/2013 10:00 AM EDT Follow-Up Hematology [place] [address] Abrahan Merlos MD [facility] DR HEMATOLOGY/[place] [address] Breast cancer, stage 2 (Primary Dx); Osteopenia Discharge Disposition: Home Social History Tobacco [...] Sign Reading Time Taken Comments Blood Pressure 135/91 06/12/2013 10:07 AM EDT Pulse 80 06/12/2013 10:07 AM EDT Temperature 36.9 ??C (98.4 ??F) 06/12/2013 10:07 AM E DT Respiratory Rate 17 06/12/2013 10:07 AM EDT Oxygen Saturation 99% 06/12/2013 10:07 AM EDT Inhaled Oxygen Concentration - - Weight 94.5 kg (208 lb 5.4 oz) 06/12/2013 10:07 AM EDT Height 168 cm (5' 6.14) 06/12/2013 10:07 AM EDT Body Mass Index 33.48 06/12/2013 10:07 AM EDT documented in this encounter Patient Instructions * Patient Instructions* Abrahan Merlos MD - 06/12/2013 10:40 AM EDT I delighted that the prednisone and plaquenil are working. The hope will be that you can taper down to a lower dose of prednisone to avoid high doses of prednisone for a long time. I will continue to follow your bone density every two years. Try cutting the trazodone pills in half, many people get benefit from 25 mg of trazodone, with perhaps less in the way of side effects. If this doesn't work, you can try a double dose of melatonin (6mg). I will see you next in 6 months and I will coordinate that appointment with Coral Ly. If the pain gets under good control, it would be reasonable to discuss extending the duration of anastrozole to ten years. documented in this encounter Progress Notes * Abrahan Merlos MD - 06/12/2013 1:03 PM EDT Subjective: Patient ID: Diamond Gaming is a 67 y.o. female with Stage II breast cancer, [...] wrists, feet, and ankles. Interval History: Diamond had generalized arthralgias in her neck, shoulders, right elbow, hands, left thumb, hips, knees, right foot, and right-sided sciatica, some of which predated her use of anastrozole, but which have worsened over the past three years. She saw Dr. Ye on May 20 who started her on plaquenil and on prednisone 10 mg daily, and she has had a significant improvement in her joint symptoms since then. She still has mild generalized joint pain, and she takes 2-4 ibuprofenper day for the arthralgias. She had an injection of the right foot on June 10 and she is having surgery on the right foot next month. She watches her two year old granddaughter four days a weekand she finds that she is very fatigued and has some difficulty keeping up with her. She has night sweats as well as 6-7 hot flashes each day, and she is reluctant to increase her celexa or to take anything new to manage the hot flashes. She has occasional discomfort in her chest, she had a long-standing sinus infection this winter which has resolved, and she has an average of one headache each day. She has trouble sleeping at night, she started trazodone at 50 mg at bedtime and she stopped it for fear it was impairing her driving judgement. She has not had a recent urinary tract infection. She continues to take about 1900 units of Vitamin D daily. Review of Systems She denies depression, breast pain or a palpable breast mass, a cough, shortness of breath, chest pain, nausea, vomiting, diarrhea, constipation, double vision, skin rashes, or pain, redness, or swelling in her lower extremities. The remainder of her review of systems [...] changes on the right. The breasts were of scattered density. The most recent Dexa scan from December 09, 2012 showed T scores of -1.2 in the lumbar spine (down from -1.1 in September 2010), and -1.5 in the left wrist. No prior study had been done of the left wrist. The most recent labs from December 04, 2012 showed a Na 141, K 3.9, Cl 1093, bicarb 25, BUN 12, creatinine 0.7, Ca 9.0, albumin 3.9, bilirubin 0.3, alk phos 147, AST 16, and ALT 28. The 25-hydroxy Vitamin D was 38 ng/mL. Assessment and Plan: Ms. Gaming is doing well and has no evidence of breast cancer recurrence. Her arthralgias have improved substantially on prednisone and plaquenil, and her dosing of prednisone will be tapered to minimize her exposure to prednisone. She is not interested in using anything to mitigate her vasomotor symptoms. I discussed trying half-dose trazodone for her sleep disturbance, the effects on her judgement may lessen with a nightly dose of 25 mg. If this does not help her, she will consider trying melatonin at 6 mg at bedtime. She is optimistic that she will be able to complete a five year course of anastrozole, and I discussed the possibility of continuing the anastrozole for a total of ten years which would be feasible if we can maintain her comfort on small doses of prednisone or with only intermittent prednisone. I will see her next in followup in six months, and I will coordinate that visit with Coral Ly. Abrahan Merlos MD journeyman apprentice electricians in Hematology-Oncology documented in this encounter Plan of Treatment Upcoming Encounters Date Type Department Care Team (Late st Contact Info) Description 11/16/2024 1:00 PM EST Office Visit [place] [phone] Paula Harris PA [facility] [place] [address] 01/26/2025 9:50 AM EDT Appointment Mammography/[place] [address] Joan Deutsch APRN [facility] [place] [address] 01/26/2025 10:50 AM EDT Office Visit General [place] [phone] Joan Deutsch APRN [facility] [place] [address] documented as of this encounter Results * (ABNORMAL) Hepatic Function [...] In Lab Abrahan Merlos MD [facility] ORDERABLES [facility] * VIT D Total Evaluation (12/22/2013 11:59 AM EDT) Vitamin D Total 25 OH 42 30 - 100 ng/mL [facility] Comment: Deficient <10 ng/mL Insufficient 10 [...] Lab Abrahan Merlos MD CHEMISTRY ORDERABLES [facility] documented in this encounter Visit Diagnoses Diagnosis Breast cancer, stage 2- Primary Malignant neoplasm of breast (female), unspecified site Osteopenia Disorder of bone and cartilage, unspecified documented in this encounter Care Teams Admissions Representative Relationship Specialty Start Date End Date Mariluz Watts MD [address] [place] [address] [address] [place] [address] PCP - General 08/22/10 documented as of this encounter
--- OUTSIDE RECORDS SUMMARY | 2024-05-18 20:00 | XMS_ITS | Encounter Summary ---
Author Organization [facility] [place] [address] Care Team Providers Care Repair Service Clerk Name Role Phone Mariluz Watts MD Primary Care Provider [phone] Reason for Visit * Reason Comments Medication Refill Encounter Details Date Type Department Care Team (Late Contact Info) Description 01/01/2013 Refill Dermatology at [place] [address] [place] [address] Chayo Willingham MD [facility] [place] [address] Social History Tobacco Use Types Packs/Day Years [...] PM EST Office Visit General Surgery at [place] [phone] Paula Harris, PA [facility] [place] [address] 01/26/2025 9:50 AM EDT Appointment Mammography/[place] [address] Joan Deutsch, [facility] [place] [address] 01/26/2025 10:50 AM EDT Office [place] [address] Joan Deutsch, [facility] [place] [address] documented as of this encounter Visit Diagnoses Not on filedocumented in this encounter Care Teams Repair Service Clerk Relationship Specialty Start Date End Date Mariluz Watts MD [address] [place] [address] PCP - General 08/22/10 documented as of this encounter
--- OUTSIDE RECORDS SUMMARY | 2024-05-18 20:00 | XMS_ITS | Encounter Summary ---
Author Organization [place] [address] Care Team Providers Care Air Carrier Operations Inspector Name Role Phone Mariluz Watts MD Primary Care Provider [phone] Encounter Details Date Type Department Care Team (Late st Contact Info) Description 05/04/2013 Orders [place] [phone] Debbi Hansen, RN Breast cancer (Primary Dx) Social History Tobacco Use Types [...] PM EST Office [place] [phone] Paula Harris PA [facility] [place] [address] 01/26/2025 9:50 AM EDT Appointment Mammography/DXA at [place] [phone] Joan Deutsch [facility] [place] [address] 01/26/2025 10:50 AM EDT Office [place] [phone] Joan Deutsch [facility] [place] [address] documented as of this encounter Visit Diagnoses Diagnosis Breast cancer- Primary Malignant neoplasm of breast (female), unspecified site documented in this encounter Care Teams Air Carrier Operations Inspector Relationship Specialty Start Date End Date Mariluz Watts MD [address] [place] [address] PCP - General 08/22/10 documented as of this encounter
--- OUTSIDE RECORDS SUMMARY | 2024-05-18 20:00 | XMS_ITS | Encounter Summary ---
Author Organization [facility] [place] [address] Care Team Providers Care Roll Off Driver Name Role Phone Mariluz Watts MD Primary Care Provider [phone] Reason for Visit * Reason Comments Right Foot Pain pain X5 years Encounter Details Date Type Department Care Team (Late st Contact Info) Description 05/22/2013 9:45 AM EDT [place] [address] Morgan Kong MD [facility] [place] [address] Ventura Richards PA [facility] [place] [address] Arthritis of right foot (Primary Dx) Discharge [...] Sign Reading Time Taken Comments Blood Pressure 148/79 05/22/2013 10:15 AM EDT Pulse 106 05/22/2013 10:15 AM EDT Temperature - - Respiratory Rate 20 05/22/2013 10:15 AM EDT Oxygen Saturation - - Inhaled Oxygen Concentration - - Weight 97.1 kg (214 lb) 05/22/2013 10:15 AM EDT Height 167.6 cm (5' 6) 05/22/2013 10:15 AM EDT Body Mass Index 34.54 05/22/2013 10:15 AM EDT documented in this encounter Progress Notes * Ventura Richards PA - 05/22/2013 10:19 AM EDT PATIENT NAME: Diamond Gaming AGE: 67 y.o. MR#: [id number] DATE OF VISIT: 05/22/2013 DATE OF INJURY/ONSET: Chronic STAFF: Dr. Kong CHIEF COMPLAINT: R foot pain HISTORY OF PRESENT ILLNESS Ms. Mekhi floyd 67 y.o. year old female comes into clinic today for Evaluation of her right foot. Patient states, that she's had a chronic history of right foot pain which has been attributed to arthritis. She was last seen by Dr. Kong sometime last year where he discussed the possibility Of fusing her joint. Patient states that she is still having the same midfoot pain. She. She also admits to new lateral ankle pain located at the subtalar joint. He states both the midfoot and subtalar joint pain is exacerbated with walking. She states that she was able to walk 2-3 miles a day prior to having her foot and ankle pain , however, has been severely limited in her distance secondary to pain. She states the pain is worse throughout the day. He does have some morning stiffness. She's been taking 600 mg of ibuprofen 4 times a day with some relief. She states that she luis bleeding disorder and requires a medication before she has a procedure. She reports having two prior hip arthroplasties without any complications. Patient states, that she's had injections into herright foot without fluoroscopy guidance. She does state that she had significant relief for 4-5 months after each injection. PAST MEDICAL HISTORY: Past Medical History Diagnosis Date ??? Anxiety associated with depression ??? Benign hypermobility syndrome ??? Diverticulosis ??? Degenerative joint disease ??? Breast cancer, stage 2 01/25/2010 ??? Rosacea 03/25/2011 ??? GI bleeding 03/25/2011 ??? Osteoarthritis of left knee 07/25/2012 ??? 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 Aortic valve sclerosis 07/25/2012 PAST SURGICAL HISTORY: Reviewed in pts chart SOCIAL HISTORY: Tobacco: Denies Alcohol: Denies Occupation: Retired ROS: Denies fever, chills, MILLER, LOC, SOB, CP, NVD, abd pain, paresthesias, weakness in the extremities, swelling in the joints, h/o RA. No recent hospitalizations PHYSICAL EXAM: Blood pressure 148/79, pulse 106, resp. rate 20, height 167.6 cm (5' 6), weight 97.07 kg (214 lb). General: alert and oriented. She appears in no acute discomfort and is resting comfortably in a chair in the exam room. Right Foot & Ankle Exam today the patient has an antalgic gait. She is good longitudinal arch support bilaterally. Is unable to perform toe walk secondary to pain. She has difficulty with heel walking. There is no evidence of trauma. No joint effusion noted. Skin is without erythema or ecchymosis. Patient is focal tenderness along the dorsal aspect of the right foot over the navicular cuneiform joint. Patient also has so me subtalar joint tenderness. She has decreased dorsiflexion in the right ankle compared to the contralateral left. Good plantar flexion bilaterally equaling 45 degrees. There is good subtalar movement bilaterally. Negative anterior drawer bilaterally. Patient is, weakness in the right lower she may compared to the contralateral left. Strength is 4 minus/5 with inversion , eversion, plantar, and dorsiflexion in the right LE. Strength is 5/5 in the contralateral left. Neurovascular Evaluation DP and TP pulses are 2+/4 The patient sensation is intact in the sural, deep peroneal, superficial peroneal nerve distributions. [place] Reece Monofilament 5.07 RADIOLOGICAL STUDIES: I independent reviewed the pts plain films today which show: There is very mild hallux valgus and bunion. There is marked osteoarthritis in the navicular- cuneiform joints. There is moderate osteoarthritis in the cuneiform- 1st through 3rd metatarsal joints. Bones are moderately osteopenic. Prominent medial spurring in the navicular -medial cuneiform joint. Mild plantar calcaneal spur. Mild dorsal spur and the cuneiform 1st metatarsal joint. 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 The patient was seen and the plan was formulated in conjunction with Dr. Kong. PLAN: Ms. Gaming and I discussed her radiologic findings and physical exam findings. Because the patient reported a positive results from prior steroid injections. Today we will schedule her for a fluoroscopy-guided navicular-medial cuneiform injection. Will also schedule an MRI of the right lower extremity. Will followup with the patient with her MRI results. The patient understands to contact usif they have any other questions or concerns MORENA HORAN 05/22/2013 documented in this encounter Plan of Treatment Upcoming Encounters Date Type Department Care Team (Late st Contact Info) Description 11/16/2024 1:00 PM EST Office [place] [phone] Paula Harris PA [facility] [place] [address] 01/26/2025 9:50 AM EDT Appointment Mammography[place] [phone] Joan Deutsch APRN [facility] [place] [address] 01/26/2025 10:50 AM EDT Office [place] [phone] Joan Deutsch APRN [facility] [place] [address] documented as of this encounter Visit Diagnoses Diagnosis Arthritis of right foot- Primary Unspecified arthropathy, ankle and foot documented in this encounter Care Teams Roll Off Driver Relationship Specialty Start Date End Date Mariluz Watts MD [address] [facility] 1 [place] [address] PCP - General 08/22/10 documented as of this encounter
--- OUTSIDE RECORDS SUMMARY | 2024-05-18 20:00 | XMS_ITS | Encounter Summary ---
Author Organization [facility] [place] [address] Care Team Providers Care Notch Grinder Name Role Phone Mariluz Watts MD Primary Care Provider [phone] Reason for Visit * Reason Comments Rosacea Encounter Details Date Type Department Care Team (Late st Contact Info) Description 12/31/2012 1:50 PM EDT Follow-Up Dermatology at [facility] [address] [place] [address] Chayo Willingham MD [facility] [place] [address] Sebaceous hyperplasia (Primary Dx); Rosacea Discharge Disposition: Home Social History Tobacco Use [...] of this encounter Progress Notes * Meagan Johnson MD - 01/02/2013 9:35 AM EDT I was the supervising physician working with dermatology resident Dr. Chayo Willingham in the dermatology clinic during this patient visit. The level of Resident supervision for this patient visit was indirect supervision with direct supervision immediately available. (definition: [facility] GME Policy Statement on Graduate Medical Education, Supervision of Graduate Medical Trainees) I was immediately available to Dr. Willingham for questions and discussion regarding this visit. I have reviewed his encounternote details and level of service. * Chayo Willingham MD - 12/31/2012 2:00 PM EDT Images from the original note were not included. DERMATOLOGY - ESTABLISHED PATIENT FOLLOW-UP Date of service: 12/31/2012 Diamond Gaming : 1945 Dermatology Resident Note: Chayo Willingham MD Chief Problem: Chief Complaint Patient presents with ??? Rosacea Ms. Diamond Gaming is a 67 y.o. female. This is an established patient, last seen by me on 05/03/2012. HPI: Ms. Gaming presents for follow-up of rosacea. She states she cut down on her erythromycin to 250 mg and started taking Biaxin prescribed by her PCP for a sinus infection, and the rosacea seems to be better. She also states that she is taking Metro-gel 1% which is also better than taking the 0.75%. She has not been using the Retin-A as it clogs her pores. She thinks she is doing well. She thinks she has more Sebaceous hyperplasia, some of the ones on the forehead are itchy and bothersome. Skin History: Rosacea Sebaceous hyperplasia (no hx colon cancer, negative C'scope 02/2012) Medical History: Patient Active Problem List Diagnoses Code ??? Anxiety associated with depression 300.4 [...] 728.6 ??? Status post hip replacement V43.64 Medications: See chart Allergies: Allergies Allergen Reactions ??? Hymenoptera Allergenic Extract Anaphylaxis Bee Stings ??? Tetracyclines Anaphylaxis Family History: No family history of melanoma or non-melanoma skin cancer Mother and Father both have rosacea Social History: Retired Review of Systems: - General: Feels well. - Skin: As per HPI; no other skin concerns. Examination: - Constitutional: Patient was alert, well-appearing and in no noticeable distress. An abbreviated skin exam was performed; this includes: Face Specific skin findings: 1. Diffuse mild erythema and telangiectasias, no pustules 2. Scattered yellow umbilicated papules on face Diagnosis/Assessment/Treatment Plan: 1. Rosacea Well controlled, Will continue on Metro-gel 1% and Emycin orally 250mg daily- will taper to EOD then taper off. If she flares she will restart.She will call with concerns. F/u 6 months, sooner prn. 2. Sebaceous Hyperplasia -scattered lesions on face, benign, reassured. -no lesions concerning today for sebaceous adenoma (briefly discussed Tanner-wilfred sydnrome and assocw/ cherelle neoplasms). Reassured. Pt will call if any of her lesions are enlarging or concerning. -pt agrees to proceed w/ Ln2 of irritating lesions today. Procedure(s): Destruction of lesion(s) with cryotherapy. Number: 5 Location: as above Discussed procedure and expectations including risks (including risk of hypopigmentation) and benefits. Verbal consent obtained. Frozen with LN2, 15-30 second thaw time, TWICE. There were no complications; the patient tolerated the procedure well. Post-procedure expectations and wound care were reviewed. RTC in 6 months. Instructed to call for questions/concerns. Chayo Willingham MD Resident in Dermatology [facility] Patient seen and evaluated with staff conductor yard: Meagan Johnson MD Section of Dermatology [facility] documented in this encounter Plan of Treatment Upcoming Encounters Date Type Department Care Team (Late st Contact Info) Description 11/16/2024 1:00 PM EST Office Visit [place] [address] Paula Harris PA [facility] [place] [address] 01/26/2025 9:50 AM EDT Appointment Mammography/[place] [address] Joan Deutsch [facility] [place] [address] 01/26/2025 10:50 AM EDT Office Visit General Surgery at [place] [address] Joan Deutsch GIS SCIENTIST [facility] [place] [address] documented as of this encounter Visit Diagnoses Diagnosis Sebaceous hyperplasia- Primary Other specified disease of sebaceous glands Rosacea documented in this encounter Care Teams Notch Grinder Relationship Specialty Start Date End Date Mariluz Watts MD [address] [place] [address] [address] [place] [address] PCP - General 08/22/10 documented as of this encounter
--- OUTSIDE RECORDS SUMMARY | 2024-05-18 20:00 | XMS_ITS | Encounter Summary ---
Author Organization [facility] [place] [address] Care Team Providers Care National Sales Executive Name Role Phone Mariluz Watts MD Primary Care Provider [phone] Encounter Details Date Type Department Care Team (Late st Contact Info) Description 05/04/2013 Orders [place] [address] Morgan Kong MD [facility] DR ORTHOPAED[place] [address] Right foot pain (Primary Dx) Social History Tobacco Use [...] PM EST Office [place] [address] Paula Harris PA [facility] [place] [address] 01/26/2025 9:50 AM EDT Appointment Mammography/[place] [address] Joan Deutsch, GE [facility] [place] [address] 01/26/2025 10:50 AM EDT Office [place] [address] Joan Deutsch, GE [facility] [place] [address] documented as of this encounter Results * XR foot minimum [...] this encounter Visit Diagnoses Diagnosis Right foot pain- Primary Pain in limb Right foot pain Pain in limb documented in this encounter Care Teams National Sales Executive Relationship Specialty Start Date End Date Mariluz Watts MD [address] [facility] 1 [place] [address] PCP - General 08/22/10 documented as of this encounter
--- OUTSIDE RECORDS SUMMARY | 2024-05-18 20:00 | XMS_ITS | Encounter Summary ---
Author Organization [facility] [place] [address] Care Team Providers Care Skin Pass Operator Name Role Phone Mariluz Watts MD Primary Care Provider [phone] Reason for Visit * Reason Comments Wound Evaluation SP L ARSLAN DOS 2- PT STATES THAT SHE HAS A RASH Encounter Details Date Type Department Care Team (Late st Contact Info) Description 08/14/2012 1:30 PM EST [place] [address] CLINIC, DR BRAY Discharge Disposition: Home Social History Tobacco Use [...] Sign Reading Time Taken Comments Blood Pressure 140/95 08/14/2012 3:27 PM EST Pulse 111 08/14/2012 3:27 PM EST Temperature 36.9 ??C (98.5 ??F) 08/14/2012 3:27 PM ES T Respiratory Rate - - Oxygen Saturation - - Inhaled Oxygen Concentration - - Weight 93.5 kg (206 lb 1.6 oz) 08/14/2012 3:27 P M EST Height 168.9 cm (5' 6.5) 08/14/2012 3:27 PM EST Body Mass Index 32.77 08/14/2012 3:27 PM EST documented in this encounter Plan of Treatment Upcoming Encounters Date Type Department Care Team (Late st Contact Info) Description 11/16/2024 1:00 PM EST Office Visit General Surgery at [place] [phone] Paula Harris PA [facility] [place] [address] 01/26/2025 9:50 AM EDT Appointment Mammography/DXA at [place] [phone] Joan Deutsch [facility] [place] [address] 01/26/2025 10:50 AM EDT Office [place] [phone] Joan Deutsch [facility] [place] [address] documented as of this encounter Visit Diagnoses Not on filedocumented in this encounter Care Teams Skin Pass Operator Relationship Specialty Start Date End Date Mariluz Watts MD [address] [place] [address] PCP - General 08/22/10 documented as of this encounter
--- OUTSIDE RECORDS SUMMARY | 2024-05-18 20:00 | XMS_ITS | Encounter Summary ---
[place] [address] Care Team Providers Care Economics Faculty Member Name Role Phone Mariluz Watts MD Primary Care Provider [phone] Reason for Visit * Reason Onset Date Comments Pharyngitis 03/16/2013 Other Encounter Details Date Type Department Care Team (Late st Contact Info) Description 03/16/2013 Telephone [place]ematology [place] [address] Nancy Ceron Pharyngitis; Social History Tobacco Use Types Packs/Day Years [...] encounter Miscellaneous Notes * Telephone Encounter - Nancy Ceron RN - 03/16/2013 3:02 PM EDT SatMarch 16, 2013 2:54 PM To: Nancy Ceron RN Message Patient has a cold and sore throat went to PCP for few weeks. Put her on penicillin but is not helping. She can be reached at [phone]. Returned call to the pt. Nasal quality to the pt's voice. Sinusitis/post nasal drip symptoms started just prior new years and she has been ill off and on since. She saw her PCP last week and was toldshe has strept throat for which she was placed on PCN, but she does not feel this is helping. She is wondering if the arimidex can cause these symptoms. 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 Suggested she return to her PCP for re-eval and if her PCP feels this is r/t to her AI, requested call from that provider to speak w/ her oncologist. Triage will forward notes to her providers on her behalf. Pt verbalized understanding, is in agreement and knows can call clinic 22/04 with any questions/concerns. documented in this encounter Plan of Treatment Upcoming Encounters Date Type Department Care Team (Late st Contact Info) Description 11/16/2024 1:00 PM EST Office [place] [phone] Paula Harris PA [facility] [place] [address] 01/26/2025 9:50 AM EDT Appointment Mammography[place] [address] Joan Deutsch APRN [facility] [place] [address] 01/26/2025 10:50 AM EDT Office [place] [address] Joan Deutsch APRN [facility] [place] [address] documented as of this encounter Visit Diagnoses Not on filedocumented in this encounter Care Teams Economics Faculty Member Relationship Specialty Start Date End Date Mariluz Watts MD [address] [place] [address] PCP - General 08/22/10 documented as of this encounter
--- OUTSIDE RECORDS SUMMARY | 2024-05-18 20:00 | XMS_ITS | Encounter Summary ---
Author Organization [facility] [place] [address] Care Team Providers Care Benefits Processor Name Role Phone Mariluz Watts MD Primary Care Provider [phone] Reason for Visit * Reason Onset Date Comments Medication Refill 01/06/2013 [facility] calling for a refill Encounter Details Date Type Department Care Team (Late st Contact Info) Description 01/06/[address] [facility] [address] [place] [phone] Chayo Willingham MD [facility] [place] [address] Medication Refill ([facility] calling for a refill) Social History Tobacco Use Types Packs/Day Years [...] Miscellaneous Notes * Telephone Encounter - Bella Mercado - 01/06/2013 9:[address] Willingham patient Levon [facility] calling for a refill of benjamin-tab 250 mildavid lanie documented in this encounter Plan of Treatment Upcoming Encounters Date Type Department Care Team (Late st Contact Info) Description 11/16/2024 1:00 PM EST Office [place] [phone] Paula Harris PA [facility] [place] [place] [address] 01/26/2025 9:50 AM EDT Appointment Mammography/DXA at [place] [phone] Joan Deutsch [facility] [place] [place] [address] 01/26/2025 10:50 AM EDT Office Visit General Surgery at [place] [phone] Joan Deutsch [facility] [place] [address] documented as of this encounter Visit Diagnoses Not on filedocumented in this encounter Care Teams Benefits Processor Relationship Specialty Start Date End Date Mariluz Watts MD [address] [place] [address] PCP - General 08/22/10 documented as of this encounter
--- OUTSIDE RECORDS SUMMARY | 2024-05-18 20:00 | XMS_ITS | Encounter Summary ---
Author Organization [facility] [place] [address] Care Team Providers Care Food Prep Worker Name Role Phone Mariluz Watts MD Primary Care Provider [phone] Reason for Visit * Reason Comments Follow Up Surgery Encounter Details Date Type Department Care Team (Late st Contact Info) Description 12/09/2012 9:45 AM EDT Follow-[place] [address] CLINIC, Bella Rose, [facility] [place] [address] Breast cancer (Primary Dx) Discharge Disposition: Home Social [...] of this encounter Progress Notes * Bella Ly, GE - 12/09/2012 10:07 AM EDT Diamond is a 66 y.o[address] Pt of Dr Marquez who returns [...] carcinoma with lobular features Tumor Grade: Intermediate Dwlybj-Pjzhq-Lfyrlsfqbm Score: 7 Tubular Differentiation: 3 Mitotic Rate: [...] sentinel nodes: 2 (Specimen A - Right [place] node) No. positive for carcinoma: 1 (H&E) No. with IHC (+) cells only: 0 (cells not seen by H&E, see Note*) No. negative for carcinoma: 1 (both H&E and IHC For positive nodes: Largest kristi deposit 0.2 cm Extranodal extension Absent Estrogen/Progestin receptors: Performed on blocks C2 and C11 ER immunoreactivity: Positive (see Diagnostic hanna*) [place] immunoreactivity: Positive (see Diagnostic hanan*) HER2/shonda expression by FISH: Negative Kimi was [...] the right arm is nearly intact.No lymphedema. On exam, well appearing and in nad. No cervical, supraclavicular or axillary adenopathy. B/L reduction mammoplasty incisions well healed . Fat necrosis in the right breast 10:00 1x2cm and left breastat 12:00 and 3:00 at areolar border approximately 1cm. No additional masses appreciated. Mammogram today: pending A/P Doing well without evidence of recurrence or metastatic disease. Tolerating arimidex. Plan follow up in 1 year with bilateral mammogram. She will see Dr. Merlos in the interval time frame. documented in this encounter Plan of Treatment Upcoming Encounters Date Type Department Care Team (Late st Contact Info) Description 11/16/2024 1:00 PM EST Office [place] [address] Paula Harris PA [facility] [place] [address] 01/26/2025 9:50 AM EDT Appointment Mammography/[place] [phone] Joan Deutsch APRN [facility] [place] [address] 01/26/2025 10:50 AM EDT Office [place] [address] Joan Deutsch, GE [facility] [place] [address] documented as of this encounter Visit Diagnoses Diagnosis Breast cancer- Primary Malignant neoplasm of breast (female), unspecified site documented in this encounter Care Teams Food Prep Worker Relationship Specialty Start Date End Date Mariluz Watts MD [address] [place] [address] PCP - General 08/22/10 documented as of this encounter
--- OUTSIDE RECORDS SUMMARY | 2024-05-18 20:00 | XMS_ITS | Encounter Summary ---
[place] [address] Care Team Providers Care Water Resource Engineering Specialist Name Role Phone Mariluz Watts MD Primary Care Provider [phone] Reason for Visit * Reason Onset Date Comments Other 07/10/2013 Medication issue Encounter Details Date Type Department Care Team (Late st Contact Info) Description 07/10/2013 Telephone [place] [address] Kimberly Ackerman RN Other (Medication issue) Social History Tobacco Use Types Packs/Day Years [...] * Telephone Encounter - Scar Aviles II, - 07/10/2013 12:21 PM EDT Rash is improved, but is still present and her PCP is giving her a steroid taper for the rash whichthe PCP believes is from the plaquenil. I have recommended possibly having her seen in the dermatology/rheumatology clinic next week and we will check for availability. She notes that the plaquenil was helping her arthralgias which I believe are related to her use of an aromatase inhibitor. She will continue her taper as planned by her PCP, though I recommend staying on 5mg of prednisone if she can not go back on plaquenil. * Telephone Encounter - Kimberly Ackerman RN - 07/10/2013 11:42 AM EDT Diamond calls today and states that her PCP is weaning her off the Prednisone. She is worried that all her symptoms will come back especially since she is no longer taking the Plaquenil because it caused a rash. Rash is improving. She was advised to call here if she experiences return of symptoms and in the meantime I will send a message to Dr. Aviles for his recommendations. documented in this encounter Plan of Treatment Upcoming Encounters Date Type Department Care Team (Late st Contact Info) Description 11/16/2024 1:00 PM EST Office [place] [phone] Paula Harris PA [facility] [place] [address] 01/26/2025 9:50 AM EDT Appointment Mammography/[place] [address] Joan Deutsch APRN [facility] [place] [address] 01/26/2025 10:50 AM EDT Office [place] [phone] Joan Deutsch APRN [facility] [place] [address] documented as of this encounter Visit Diagnoses Not on filedocumented in this encounter Care Teams Water Resource Engineering Specialist Relationship Specialty Start Date End Date Mariluz Watts MD [address] [place] [address] PCP - General 08/22/10 documented as of this encounter
--- OUTSIDE RECORDS SUMMARY | 2024-05-18 20:00 | XMS_ITS | Encounter Summary ---
Author Organization [facility] [place] [address] Care Team Providers Care Flash Drier Operator Name Role Phone Mariluz Watts MD Primary Care Provider [phone] Reason for Visit * Reason Comments [facility] S/P LEFT ANT ARSLAN DOS 07/22/12 WITH R HIP PAIN FALL 11/12/12 RIGHT ARSLAN 03/06/05 Encounter Details Date Type Department Care Team (Late st Contact Info) Description 12/22/2012 12:10 PM EDT Office Visit [place] [address] Kian Ervin MD [address] [place] [address] S/P Left Anterior ARSLAN- 07/22/12 (Dr. Ervin) (Primary Dx); Status post hip replacement Discharge Disposition: Home Social History Tobacco Use [...] Sign Reading Time Taken Comments Blood Pressure 117/89 12/22/2012 12:34 PM EDT Pulse 100 12/22/2012 12:34 PM EDT Temperature - - Respiratory Rate - - Oxygen Saturation - - Inhaled Oxygen Concentration - - Weight 91.4 kg (201 lb 6.4 oz) 12/22/2012 12:34 PM EDT Height 168.9 cm (5' 6.5) 12/22/2012 12:34 PM ED T Body Mass Index 32.02 12/22/2012 12:34 PM EDT documented in this encounter Patient Instructions * Patient Instructions* Ralph Ambrocio PA - 12/22/2012 1:02 PM EDT -activities as tolerated with exception of running (axial loading) -infection awareness -continue stretching and strengthening -antibiotic prior to dental work -wait 6 months form surgery for elective dental work documented in this encounter Progress Notes * Ralph Ambrocio PA - 12/22/2012 12:33 PM EDT Date: Jul 2211-11 Surgeon: Kian Ervin MD Surgical Procedure Performed: Injection left hip with 10 cc marcaine 0.25% with epi, into skin and subcutaneous tissues (CPT [id number]) left total hip arthroplasty, anterior Hueter approach with [place] table (CPT code 23472) Left hip intraoperative radiologic examination (CPT code 39904) Amicar infusion (5 g IV load, then 1g/hr x 3 hrs) Components Used: [place] Accolade stem, size 4, 127 degrees Trident PSLcup, 52 mm, solid 32 mm ID, alumina 32-4 mm alumina head HPI: Ms Gaming returns 5 months from her recent left ARSLAN; she previously had her right hip replaced.Her hips are doing well. She fell and injured her right groin this winter but it is improving with PT. The left hip continues to improve since surgery. 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 She has some trouble with her left knee and right foot as well but these are stable problems. Physical Exam: 67 yo female; ambulatory without assist or antalgia. When supine, leg lengths are equal. Calves soft and nontender without edema. She is able to straight leg raise without pain on bothsides. Passive ROM of the hips is well tolerated. No pain or shucking with axial loading of the femur. No trochanteric tenderness to either side. Pedal pulses intact and equal. X-rays: Bilateral, noncemented hip implants; no evidence of sudsidence or fracture. No loosening orwear. No evidence of complication. Assessment: S/p Bilateral ARSLAN Plan: Her hips look very good. I encouraged continued hip specific rehab. We reviewed joint precautions and infection management. Antibiotic prophylaxis was recommended. We discussed appropriate activities to prevent premature implant failure. I encouraged continued joint specific rehab exercises. We'll plan to f/u in 7 month(s) or sooner as needed. documented in this encounter Plan of Treatment Upcoming Encounters Date Type Department Care Team (Late st Contact Info) Description 11/16/2024 1:00 PM EST Office Visit General Surgery at [place] [phone] Paula Harris PA [facility] [place] [place] [address] 01/26/2025 9:50 AM EDT Appointment Mammography/[place] [address] Joan Deutsch APRN [facility] [place] [address] 01/26/2025 10:50 AM EDT Office Visit [place] [phone] Joan Deutsch APRN [facility] [place] [address] documented as of this encounter Visit Diagnoses Diagnosis S/P Left Anterior ARSLAN- 07/22/12 (Dr. Ervin)- Primary Hip joint replacement by other means Status post hip replacement Hip joint replacement by other means documented in this encounter Care Teams Flash Drier Operator Relationship Specialty Start Date End Date Mariluz Watts MD [address] [place] [address] PCP - General 08/22/10 documented as of this encounter
--- OUTSIDE RECORDS SUMMARY | 2024-05-18 20:00 | XMS_ITS | Encounter Summary ---
[place] [address] Care Team Providers Care Presto Log Operator Name Role Phone Mariluz Watts MD Primary Care Provider [phone] Reason for Visit * Reason Onset Date Comments Rash 07/02/2013 Encounter Details Date Type Department Care Team (Late st Contact Info) Description 07/02/2013 [place] [address] Kimberly Ackerman RN Rash Social History Tobacco Use Types Packs/Day [...] Encounter - Scar Aviles II, DO - 07/02/2013 2:17 PM EDT Returned pt's call and left a message to stop the plaquenil indefinitely to see if the rash resolves. I also asked her to call me back with any problems or questions. * Telephone Encounter - Kimberly Ackerman RN - 07/02/2013 12:31 PM EDT Diamond calls back and reports the rash to be bright red and patchy on multiple areas of her body Bilaterally, she states it is itchy, her PCP gave her Triamcinalone cream to apply. Last dose of Plaquenil was yesterday, I have asked her not to take the plaquenil today and I will consult with Dr. Aviles about future plan of care. * Telephone Encounter - Kimberly Ackerman RN - 07/02/2013 10:33 AM EDT Diamond calls today and reports that she started Plaquenil about a month ago and And developed a rash last week, she went to see her PCP, and PCP believes it may be related to taking Plaquenil. I called Diamond and left a message to call back. documented in this encounter Plan of Treatment Upcoming Encounters Date Type Department Care Team (Late st Contact Info) Description 11/16/2024 1:00 PM EST Office [place] [phone] Paula Harris PA [facility] [place] [address] 01/26/2025 9:50 AM EDT Appointment Mammography/[place] [phone] Joan Deutsch APRN [facility] [place] [address] 01/26/2025 10:50 AM EDT Office [place] [address] Joan Deutsch, GE [facility] [place] [address] documented as of this encounter Visit Diagnoses Not on filedocumented in this encounter Care Teams Presto Log Operator Relationship Specialty Start Date End Date Mariluz Watts MD [address] [place] [address] [address] [place] [address] PCP - General 08/22/10 documented as of this encounter
--- OUTSIDE RECORDS SUMMARY | 2024-05-18 20:01 | XMS_ITS | Encounter Summary ---
Author Organization [facility] [place] [address] Care Team Providers Care Dollyman Name Role Phone Mariluz Watts MD Primary Care Provider [phone] Reason for Visit * Reason Onset Date Comments Medication Problem 08/04/2012 ?dosage Encounter Details Date Type Department Care Team (Late st Contact Info) Description 08/04/2012 Refill [place] [address] Chayo Willingham MD [facility] [place] [address] Social History Tobacco Use Types Packs/Day Years [...] encounter Miscellaneous Notes * Telephone Encounter - Doni Diane - 08/04/2012 10:34 AM EST Hi there, Please call Diamond in regards to uziel * Telephone Encounter - Bella Mercado - 08/04/2012 10:[address] Willingham patient Patient was calling as Dr Willingham talked about decreasing the benjamin-tab ec in July. She need to fill the rx now. Please let her know if it is going to be lowered. She can be reached at [phone] eyal documented in this encounter Plan of Treatment Upcoming Encounters Date Type Department Care Team (Late st Contact Info) Description 11/16/2024 1:00 PM EST Office [place] [address] aPula Harris PA [facility] [place] [place] [address] 01/26/2025 9:50 AM EDT Appointment Mammography/[place] [address] Joan Deutsch [facility] [place] [address] 01/26/2025 10:50 AM EDT Office [place] [phone] Joan Deutsch [employer] [facility] [place] [place] [address] documented as of this encounter Visit Diagnoses Not on filedocumented in this encounter Care Teams Dollyman Relationship Specialty Start Date End Date Mariluz Watts MD [address] [place] [address] PCP - General 08/22/10 documented as of this encounter
--- OUTSIDE RECORDS SUMMARY | 2024-05-18 20:01 | XMS_ITS | Encounter Summary ---
Author Organization [facility] [place] [address] Care Team Providers Care Oracle Soa Consultant Name Role Phone Mariluz Watts MD Primary Care Provider [phone] Encounter Details Date Type Department Care Team (Late st Contact Info) Description 07/22/2012 3:42 PM EDT Anesthesia [place] [address] Terry Membreno MD [facility] [place] [address] Cornell Leija CRNA [facility] [place] [address] Anesthesia Record Procedure Summary Procedure Name Responsible Anesthesiologist Anesthesia Start Time Anesthesia Stop Time TOTAL HIP ARTHROPLASTY, ANTERIOR APPROACH (WRVU 19.6) (Left: Hip) Terry Membreno MD 07/22/12 1542 07/22/12 1806 Events Date Time Event Comment 07/22/2012 1502 1542 Start 1806 Stop Meds * Agents No agents on file. * Blood No blood administrations on file. Lines, Drains, and Airways Type Details Placement Removal Incision breast; 05/28/22 (LD A cleanup utility RA#[id number]); 1715 (LDA cleanup utility RA#[id number]) 03/27/11 1105 by 05/28/22 1715 by ReevesKalee L Incision breast; 05/28/22 (LD A cleanup utility RA#[id number]); 1715 (LDA cleanup utility RA#[id number]) 03/27/11 1106 by 05/28/22 1715 by ReevesKalee L Incision 07/22/12; hip; 05/28 (LDA cleanup utility RA#[id number]); 1715 (LDA cleanup utility RA#[id number]) 07/22/12 0000 by Pau Swanson RN 05/28/22 1715 by Kalee Reeves Urethral Catheter 07/22/12; indwelling double lumen catheter; hydrophilic coated, latex; 16; inserted; 1; drainage bag to dependent drainage; 07/23/12; 0637 07/22/12 0000 by Pau Swanson RN 07/23/12 0637 by Morgan Snider, [place] (RETIRED) Peripheral IV Line - Single Lumen 07/22/12; 07/23/12; 0639 07/22/12 0000 by Pau Swanson RN 07/23/12 0639 by Morgan Snider, RN (RETIRED) Peripheral IV Line - Single Lumen 07/22/12; 1355; 07/26/12 (date entered to remove old LDA from template); 0000 07/22/12 1355 by Debbi [place] RN 07/26/12 0000 by Deidra London RN documented in this encounter Social History [...] OR Notes * Anesthesia Postprocedure Evaluation - Jovani Diane MD - 07/23/2012 9:09 AM EDT Patient: Diamond Gaming Procedure(s) Performed: Procedure(s): @TOTAL HIP ARTHROPLASTY, ANTERIOR APPROACH MODIFIER ACCOLADE FEMORAL STEM NINA MODIFIER TRIDENT PSL ACETABULUM NINA Patient location: PACU Post-op pain: Adequate analgesia Post-op nausea: no nausea or vomiting Last Vitals: Filed Vitals: 07/23/12 0649 BP: 109/63 Pulse: 88 Temp: 36.7 ??C (98.1 ??F) Resp: 16 Post-op cardiovascular and respiratory status: is stable Level of consciousness: awake Complications: no apparent complications Fluid Status: normal * Anesthesia Preprocedure Evaluation - Jovani Diane MD - 07/22/2012 3:01 PM EDT Today I evaluated Diamond Gaming a 66 y.o. female. Procedure(s): @TOTAL HIP ARTHROPLASTY, ANTERIOR APPROACH MODIFIER ACCOLADE FEMORAL STEM NINA MODIFIER TRIDENT PSL ACETABULUM NINA Patient Active Problem List Diagnoses ??? Hip pain ??? S/P hip replacement SURGERY DATE: 03/06/2005 NICK RUIZ MD Surgical Procedure Performed: Right total hip arthroplasty, cementless, [id number] Components Used: Nina Trident 52 shell outer diameter Femoral head 32-4 mm [place] Accolade Femoral stem size 4, 127 deg [...] hand and thumb, wrists, feet, and ankles. Past Medical History Diagnosis Date ??? Anxiety associated with depression ??? Benign hypermobility syndrome ??? Diverticulosis ??? Degenerative joint disease ??? Breast cancer, stage 2 01/25/2010 ??? Rosacea 03/25/2011 ??? GI bleeding 03/25/2011 History Substance Use Topics ??? Smoking status: Former Smoker -- 1.0 packs/day for 3 years Types: Cigarettes Quit date: 09/30/1968 ??? Smokeless tobacco: Never Used ??? Alcohol Use: No Allergies Allergen Reactions ??? Tetracycline Analogues Anaphylaxis ??? Hymenoptera Allergenic Extract Anaphylaxis Bee Stings Medications: MAR and/or home medications have been reviewed. Physical Exam: There were no vitals filed for this visit. There is no height or weight on file to calculate BMI. Airway Assessment: Mallampati: II TM distance: >3 FB Neck ROM: full Cardiovascular Assessment: Pulmonary Assessment: Dental Assessment: Misc Assessment: Anesthesia Plan: ASA 3 General with intravenous induction Informed Consent: Anesthetic plan and risks discussed with patient. Plan discussed with SECURITY REPRESENTATIVE. Misc. Assessment: documented in this encounter Miscellaneous Notes * Addendum Note - Charity Gomez - 07/23/2012 11:18 AM EDT Addendum created 07/23/12 1118 by Charity Gomez Modules edited:Anesthesia Events, Anesthesia Responsible Staff documented in this encounter Plan of Treatment Upcoming Encounters Date Type Department Care Team (Late st Contact Info) Description 11/16/2024 1:00 PM EST Office [place] [address] Paula Harris PA [facility] [place] [address] 01/26/2025 9:50 AM EDT Appointment Mammography/DXA at [place] [phone] Joan Deustch [facility] [address] 01/26/2025 10:50 AM EDT Office Visit General Surgery at [place] [phone] Joan Deutsch CLIENT SERVICES MANAGER [facility] [place] [place] [address] documented as of this encounter Visit Diagnoses Not on filedocumented in this encounter Care Teams Oracle Soa Consultant Relationship Specialty Start Date End Date Mariluz Watts MD [address] [place] [address] [address] [place] [address] PCP - General 08/22/10 documented as of this encounter
--- OUTSIDE RECORDS SUMMARY | 2024-05-18 20:01 | XMS_ITS | Encounter Summary ---
[place] [address] Care Team Providers Care Physician Compensation Analyst Name Role Phone Mariluz Watts MD Primary Care Provider [phone] Encounter Details Date Type Department Care Team (Late st Contact Info) Description 07/17/2012 Anti-Coag Telephone [place] [address] Kian Ervin MD [address] [facility] [place] [address] Social History Tobacco Use Types Packs/Day Years [...] of this encounter Progress Notes * Charity Mathur RN - 07/17/2012 4:16 PM EDT Subjective: Patient ID: Diamond Gaming is a 66 y.o. female. Co pay for Joseluis is $20.00. Diamond notified. HPI ROS Objective: Physical Exam Ortho Exam Neurologic Exam Assessment and Plan: No problem-specific visit notes found for this encounter. documented in this encounter Plan of Treatment Upcoming Encounters Date Type Department Care Team (Late st Contact Info) Description 11/16/2024 1:00 PM EST Office Visit General Surgery at [place] [phone] [facility] [place] [address] 01/26/2025 9:50 AM EDT Appointment Mammography/DXA at [place] [phone] [facility] [place] [address] 01/26/2025 10:50 AM EDT Office Visit General Surgery at [place] [phone] Joan Deutcsh [facility] [place] [address] documented as of this encounter Visit Diagnoses Not on filedocumented in this encounter Care Teams Physician Compensation Analyst Relationship Specialty Start Date End Date Mariluz Watts MD [address] [place] [address] PCP - General 08/22/10 documented as of this encounter
--- OUTSIDE RECORDS SUMMARY | 2024-05-18 20:01 | XMS_ITS | Encounter Summary ---
[place] [address] Care Team Providers Care Performance Analyst Name Role Phone Mariluz Watts MD Primary Care Provider [phone] Reason for Visit * Reason Comments Left Hip Pain Encounter Details Date Type Department Care Team (Late st Contact Info) Description 07/21/2012 8:35 AM EDT Office Visit [place] [address] [place] [address] Other specified pre-operative examination; Hip pain Discharge Disposition: Home Social History Tobacco [...] Sign Reading Time Taken Comments Blood Pressure 124/78 07/21/2012 8:51 AM EDT Pulse 64 07/21/2012 8:51 AM EDT Temperature - - Respiratory Rate - - Oxygen Saturation - - Inhaled Oxygen Concentration - - Weight 99.3 kg (219 lb) 07/21/2012 8:51 AM EDT Height 168.9 cm (5' 6.5) 07/21/2012 8:51 AM EDT Body Mass Index 34.82 07/21/2012 8:51 AM EDT documented in this encounter Progress Notes * Kian Ervin MD - 07/21/2012 9:38 AM EDT This note is recorded by Charity Mathur RN acting as a scribe for Kian Ervin MD. PREOPERATIVE VISIT HISTORY OF PRESENT ILLNESS: Very pleasant 66 year-old with severe osteoarthritis of the hip. I haveseen the patient previously and the plan is for left total hip arthroplasty. Please refer to my previous note for the full history. The patient reports that the pain has not changed and has actually gotten a bit worse. She reviewedthe shared decision making video and is confident in the decision to go forward with total joint arthroplasty. PHYSICAL EXAMINATION: Exam is previously documented in my note and is unchanged. She has essentially equal leg lengths. Range of motion of the right hip is painless. Left hip flexion becomes painful in the groin at about 85-90??, internal rotation 15 causes groin pain, external rotation to 40 is painless, abduction 35?? also causes medial and anterior hip pain. Distal neurologic and vascular examis normal. LABORATORY DATA: Hgb: 14.0 Platelets: 241 INR: 0.9 type and screen done. ASSESSMENT/PLAN: A 66 year-old who presents for preoperative appointment today. I had a long discussion with the patient regarding the risks and benefits of total hip arthroplasty. We talked about bleeding, infection, need for further surgery, fracture, leg length discrepancy, blood clots, implant failure, blood transfusion, and the complications of anesthesia up to and including . I used total hip implants to demonstrate for them how we perform the procedure and all of their questions were answered. I did review the history and physical today which says the patient is cleared for surgery and has no specific recommendations for further testing. I reviewed the labs and there were no issu es with those. Informed consent was signed in the clinic today. We discussed DNR status and the patient is a full code. We will plan to use riveroxaban for 12 days postoperatively for DVT prophylaxis. I discussed with them the possible discharge scenarios including going home versus needing to go to a rehab facility. We will make that determination after seeing how well mobilization is progressing. Diamond would at this time prefer to go home with the assist of two friends. I have personally evaluated the patient and agree with the above note as recorded by Charity Mathur RN. Attending Note. I have seen the patient, I have reviewed the care plan as described, and I agree (with any changes or additions outlined below). Even though her hip radiographs do not demonstrate severe osteoarthrosis, she has exhausted all reasonable treatment options including physical therapy, anti- inflammatories, weight loss, and activitylimitation. She fully understands benefits and risks of surgery, thoroughly understands that this left hip is not nearly as arthritic as the right hip that we did in 2004. Nevertheless, she is limited in terms of being able to play with her daughter and granddaughter, she tells me that those are the 2 most important things in her life, and given that the hip appears to be the major source of limitation we'll proceed with total hip replacement. The risks of infection, blood clot, ongoing pain, nerve or blood vessel injury, this location, leg length inequality, reoperation, risk of anesthesia, and medical complications including were all reviewed with her today. Kian Ervin MD documented in this encounter Plan of Treatment Upcoming Encounters Date Type Department Care Team (Late st Contact Info) Description 11/16/2024 1:00 PM EST Office Visit [place] [address] Paula Harris PA [facility] [place] [address] 01/26/2025 9:50 AM EDT Appointment Mammography/[place] [phone] Joan Deutsch, GE [facility] [place] [address] 01/26/2025 10:50 AM EDT Office Visit [place] [address] Joan Deutsch APRN [facility] [place] [address] documented as of this encounter Visit Diagnoses Diagnosis Other specified pre-operative examination Hip pain Pain in joint, pelvic region and thigh documented in this encounter Care Teams Performance Analyst Relationship Specialty Start Date End Date Mariluz Watts MD [address] [place] [address] PCP - General 08/22/10 documented as of this encounter
--- OUTSIDE RECORDS SUMMARY | 2024-05-18 20:01 | XMS_ITS | Encounter Summary ---
Author Organization [facility] [place] [address] Care Team Providers Care Belt Back Operator Name Role Phone Mariluz Watts MD Primary Care Provider [phone] Reason for Visit * Reason Comments Follow-up Encounter Details Date Type Department Care Team (Late st Contact Info) Description 05/02/2012 2:00 PM EDT Follow-Up Hematology [place] [address] Abrahan Merlos MD [facility] DR HEMATOLOGY/[place] [address] Breast cancer, stage 2 (Primary Dx) Discharge [...] Sign Reading Time Taken Comments Blood Pressure 129/67 05/02/2012 1:57 PM EDT Pulse 73 05/02/2012 1:57 PM EDT Temperature 36.8 ??C (98.2 ??F) 05/02/2012 1:57 PM ED T Respiratory Rate 18 05/02/2012 1:57 PM EDT Oxygen Saturation 100% 05/02/2012 1:57 PM EDT Inhaled Oxygen Concentration - - Weight 96.3 kg (212 lb 4.9 oz) 05/02/2012 1:57 P M EDT Height 170 cm (5' 6.93) 05/02/2012 1:57 PM EDT Body Mass Index 33.32 05/02/2012 1:57 PM EDT documented in this encounter Patient Instructions * Patient Instructions* Abrahan Merlos MD - 05/02/2012 2:44 PM EDT Your exam looks good and I don't see any evidence of breast cancer recurrence. The liver enzymes are good. I will e-mail you with your Vitamin D level and I'll ask you to modify your dosing if necessary to get your level in the 35-45 ng/mL range. I will see you next in followup in six months, and I will coordinate that appointment with Coral Ly, along with your mammograms and next bone density scan. I would like you to stop the anastrozole from today through May 22, and I will ask you to resumeon May 23. I will check in with you on e-mail May 22. documented in this encounter Progress Notes * Abrahan Merlos MD - 05/02/2012 3:42 PM EDT Subjective: Patient ID: Diamond Gaming is a 66 y.o. female with Stage II breast cancer, seen for six month followup. HPI: Ms. Gaming presented on screening mammography January 04, 2010 with two masses in the right breast, and a stable fibroglandular pattern without change on the left. The breasts were of scattered density. An ultrasound-guided biopsy of the right breast on January 25 showed an invasive ductal carcinomaand ductal carcinoma in situ. Imaging including breast MRI showed a number of suspicious lesions in both breasts. She underwent bilateral wire localization excisions with reduction mammoplasties and a right sentinel node biopsy on March 24. She was found to have a 1.5 and a 0.8 cm intermediate gradeinvasive ductal carcinoma on the right with minor ductal carcinoma in situ, with lymphovascular invasion. The deep margin was <1 mm for both the invasive cancer and the DCIS. One of two sentinel nodes were positive with a 2 mm deposit. Estrogen and progesterone receptors were positive, and Her-2was unamplified. The left breast excision showed a [...] a dose of 50.4 Gy. Since starting anastrozoleemmett has had an increase in her rosacea and in the wrinkling of the skin of her face, she has intermittent urinary incontinence and vaginal dryness, she has 20-25 hot flashes each day, she has soft fragile nails, and she has increased arthralgias of her left hand and thumb, wrists, feet, and ankles. Interval History: Diamond has pain in her lower back, left hip, left knee, right foot, and at the [facility] thumb joints of both hands. She is scheduled for a left hip replacement on July 08, and she willeventually have a left knee replacement and surgical stabilization of her right foot. The pain in her thumbs prevent her from knitting. She takes ibuprofen before bed and she is working with a physical therapist. She has an average of ten hot flashes each day which are being somewhat controlled with celexa, she has intermittent bouts of diarrhea, and she is taking about 1900 units of Vitamin D daily. Review of Systems : She denies depression, breast pain, a cough, shortness of breath, chest pain, nausea, vomiting, diarrhea, constipation, headaches, double vision, skin rashes, pain, redness, or swelling in her lower extremities, or any other sites of skeletal pain. The remainder of her review ofsystems is negative. Objective: Physical Exam Vitals reviewed. [...] She exhibits no distension and no mass. No tenderness. She has no guarding. Musculoskeletal: She exhibits no edema. Lymphadenopathy: She has no cervical adenopathy. Neurological: She is alert and oriented to person, place, and time. Skin: Skin is warm and dry. No erythema. Psychiatric: She has a normal mood and affect. Recent Results (from the past 24 hour(s)) HEPATIC FUNCTION PANEL Component Value Range ??? Total Protein 6.8 6.4 - 8.3 (gm/dL) ??? Albumin 4.6 3.2 - 5.2 (gm/dL) ??? AST 13 0 - 30 (unit/L) ??? ALT 15 0 - 30 (unit/L) ??? Alk Phos 97 40 - 104 (unit/L) ??? Total Bilirubin 0.2 0.2 - 1.3 (mg/dL) ??? Bili, Direct 0.1 0.0 - 0.3 (mg/dL) VIT D TOTAL 25 HYDROXY Component Value Range ??? 25-OH Vit D Total 41 30 - 100 (ng/mL) The most recent mammograms from November 01, 2011 showed a stable fibroglandular pattern without significant change. There were post-surgical changes bilaterally. The Dexa scan from October 26, 2010 showed T scores of -1.1 in the lumbar spine, 0.1 in the left hip, and -0.1 in the left femoral neck. Assessment and Plan: Ms. Gaming is doing well and has no evidence of breast cancer recurrence. As she has not obtained adequate relief from previous measures for her joints, and particularly for her hands, I have recommended a three week anastrozole holiday which will sometimes help mitigate the aromatase inhibitor-arthralgia syndrome. She will stop anastrozole today, and I will check back with her in three weeks to followup with her. If the drug holiday does not help, we could consider a class switch to the competitive aromatase inhibitor exemestane. Her Vitamin D level is fine and I asked her to continue her current dosing of supplemental Vitamin D. I will see Ms. Gaming back in followup in six months, I will co ordinate that appointment with Coral Ly, and we will repeat her mammograms and a Dexa scan at that time. She will hopefully be able to continue a five year course of anastrozole for another three years, through April of 2015. Abrahan Merlos MD rental manager in Hematology-Oncology documented in this encounter Plan of Treatment Upcoming Encounters Date Type Department Care Team (Late st Contact Info) Description 11/16/2024 1:00 PM EST Office [place] [phone] Paula Harris PA [facility] [place] [place] [address] 01/26/2025 9:50 AM EDT Appointment Mammography/[place] [phone] Joan Deutsch MEDICAL SURGICAL TECH [facility] [place] [place] [address] 01/26/2025 10:50 AM EDT Office [place] [phone] Joan Deutsch MEDICAL SURGICAL TECH [facility] [place] [place] [address] documented as of this encounter Procedures Procedure Name Priority Date/Time Associated Diagnosis Comments VITAMIN D, 25-HYDROXY Routine 05/02/2012 1:09 PM EDT Breast cancer, stage 2 HEPATIC FUNCTION PANEL STAT 05/02/2012 1:09 PM EDT Breast cancer, stage 2 documented in this encounter Results * VIT D Total 25 Hydroxy (05/02/2012 1:09 PM EDT) Pathologist [facility] Vitamin D Total 25 OH 41 30 - 100 ng/mL [facility] Comment: Deficient <10 ng/mL Insufficient 10 to [...] a total Vitamin D concentration is reported. Please note, the performing location for this test has changed. ??As of 11/06/2011 the Vitamin D Total, 25 Hydroxy assays are being analyzed by the [facility] Chemistry [facility]. ??There is NO CHANGE in units. ??Please contact the chemistry laboratory at [phone] with questions. Blood specimen (specimen) 05/02/2012 1:09 PM EDT 05/02/2012 1:11 PM EDT Narrative Resulting Agency Comment Spec In Lab Abrahan Merlos MD CHEMISTRY ORDERABLES [facility] * Hepatic Function Panel (05/02/2012 1:09 PM EDT) Pathologist [facility] Protein, Total 6.8 6.4 - 8.3 gm/dL [facility] Albumin 4.6 3.2 - 5.2 gm/dL [facility] Aspartate Aminotransferase 13 0 - 30 unit/L [facility] Alanine Aminotransferase 15 0 - 30 unit/[facility] Alkaline Phosphatase 97 40 - 104 unit/L [facility] Bilirubin, Total 0.2 0.2 - 1.3 mg/dL [facility] Bilirubin, Direct 0.1 0.0 - 0.3 mg/dL [facility] Blood specimen (specimen) 05/02/2012 1:09 PM EDT 05/02/2012 1:11 PM EDT Narrative Resulting Agency Comment Spec In Lab Abrahan Merlos MD CHEMISTRY ORDERABLES [facility] documented in this encounter Visit Diagnoses Diagnosis Breast cancer, stage 2- Primary Malignant neoplasm of breast (female), unspecified site documented in this encounter Care Teams Belt Back Operator Relationship Specialty Start Date End Date Mariluz Watts MD [address] [facility] [place] [address] PCP - General 08/22/10 documented as of this encounter
--- OUTSIDE RECORDS SUMMARY | 2024-05-18 20:01 | XMS_ITS | Encounter Summary ---
[place] [address] Care Team Providers Care Byproducts Extractor Name Role Phone Mariluz Watts MD Primary Care Provider [phone] Encounter Details Date Type Department Care Team (Latest Contact Info) Description 07/08/2012 12:34 PM EDT - 07/08/2012 11:59 PM EDT Hospital [place] [address] Nick Ervin MD [address] [place] [address] DJD (degenerative joint disease) of hip Discharge Disposition: Home Social History Tobacco Use [...] Dispensed Refills Start Date End Date acetaminophen (TYLENOL) 500 mg tablet Take 2 tablets by mouth every 8 hours for 7 days. After 7 days, may take Tylenol as needed for mild pain. 42 tablet 0 07/25/2012 08/01/2012 anastrozole (ARIMIDEX) 1 mg tablet Take 1 tablet by mouth nightly. 90 tablet 3 07/25/2012 08/25/2012 bisacodyl (DULCOLAX) 5 mg EC tablet Take 2 tablets by mouth daily as needed for Constipation (or if no BM in 48 hours). 10 tablet 0 07/25/2012 08/18/2012 bisacodyl (DULCOLAX) [address] 1 suppository rectally daily. Use 1 suppository daily until having regular BM's, then use as needed for constipation. 5 suppository 0 07/25/2012 08/18/2012 cholecalciferol, Vitamin D3, (VITAMIN D) 1,000 unit Tab tablet Take 1 tablet by mouth daily. 60 tablet 5 07/25/2012 09/07/2022 HYDROmorphone (DILAUDID) 2 mg tablet Take 1-2 tablets by mouth every 4 hours as needed for Pain. As pain improves, decrease dose of Dilaudid and space doses further apart. 80 tablet 0 07/25/2012 07/28/2012 lactobacillus rhamnosus, GG, (PROBIOTIC) 10 billion cell capsule Take 1 capsule by mouth daily. 07/25/2012 12/22/2012 metroNIDAZOLE (METROGEL) 1 % gel Apply topically daily. 45 g 07/25/2012 12/31/2012 multivitamin (THERAGRAN) tablet Take 1 tablet by mouth daily. 30 tablet 07/25/2012 08/18/2012 polyethylene glycol (MIRALAX) 17 gram packet Take 17 g by mouth daily. Continue daily until having regular BM's, then use as needed for constipation or if no BM in 48 hours. 10 each 0 07/25/2012 08/18/2012 rivaroxaban (XARELTO) 10 mg Tab tablet Take 1 tablet by mouth daily. STOP after last dose morning of August 26. 32 tablet 0 07/25/2012 12/09/2012 scopolamine (TRANSDERM-SCOP) 1.[address] 1 patch onto the skin. Remove patch after 72 hours- remove on July 28. Only replace if you have continued nausea. 1 patch 0 07/25/2012 08/18/2012 senna-docusate (PERICOLACE) 8.6-50 mg per tablet Take 1-4 tablets by mouth 2 times daily. 60 tablet 3 07/25/2012 08/12/2013 Lysine 1,000 mg Tab Take 1 tablet by mouth as needed. 08/12/2013 naproxen (NAPROSYN) 500 mg tablet Take 500 mg by mouth 2 times daily. 07/25/2012 ERGOCALCIFEROL, VITAMIN D2, (VITAMIN D ORAL) Take by mouth daily. CYANOCOBALAMIN, VITAMIN B-12, (VITAMIN B-12 ORAL) Take 500 mg by mouth daily. 12/03/2012 mupirocin calcium (BACTROBAN) 2 % nasal ointment by Nasal route 2 times daily. Use one-half of tube in each nostril twice daily for five (5) days. After application, press sides of nose together and gently massage. 07/25/2012 LACTOBACILLUS RHAMNOSUS GG (PROBIOTIC ORAL) Take by mouth daily. erythromycin base (E-MYCIN) 500 mg tabletIndications:R osacea Take 1 tablet by mouth 2 times daily. 60 tablet 2 04/04/2012 08/04/2012 tretinoin (RETIN-A) 0.05 % creamIndications:Ro sacea Apply topically nightly. 45 g 1 11/13/2011 08/27/2012 citalopram (CELEXA) 40 mg tabletIndications:d epression Take 40 mg by mouth daily. Indications: Depression 05/20/2013 ARIMIDEX 1 mg tablet TAKE ONE TABLET BY MOUTH ONCE DAILY. 90 tablet 3 08/16/2011 07/25/2012 metroNIDAZOLE (METROGEL) 1 % gel 10/26/2010 2 multivitamin (THERAGRAN) tablet 10/26/2010 2 documented as of this encounter Plan of Treatment Upcoming Encounters Date Type Department Care Team (Late st Contact Info) Description 11/16/2024 1:00 PM EST Office [place] [address] Paula Harris PA [facility] [place] [address] 01/26/2025 9:50 AM EDT Appointment Mammography/[place] [phone] Joan Deutsch, [facility] [place] [address] 01/26/2025 10:50 AM EDT Office [place] [phone] Joan Deutsch, [facility] [place] [address] documented as of this encounter Procedures Procedure Name Priority Date/Time Associated Diagnosis Comments URINALYSIS WITH REFLEX CULTURE Routine 07/08/2012 1:07 PM EDT DJD (degenerative joint disease) of hip URINE CULTURE Routine 07/08/2012 1:07 PM EDT DJD (degenerative joint disease) of hip DIFFERENTIAL, AUTOMATED Routine 07/08/2012 12:50 PM EDT ABO/RH TYPING Routine 07/08/2012 12:50 PM EDT APTT Routine 07/08/2012 12:50 PM EDT DJD (degenerative joint disease) of hip SEDIMENTATION RATE Routine 07/08/2012 12 :50 PM EDT DJD (degenerative joint disease) of hip PROTHROMBIN TIME Routine 07/08/2012 12:5 0 PM EDT DJD (degenerative joint disease) of hip CBC (WITH DIFF) Routine 07/08/2012 12:50 PM EDT DJD (degenerative joint disease) of hip ANTIBODY SCREEN Routine 07/08/2012 12:50 PM EDT CRP, CARDIAC RISK (HS CRP) Routine 07/08/2012 12:50 PM EDT DJD (degenerative joint disease) of hip PROTEIN, TOTAL Routine 07/08/2012 12:50 PM EDT DJD (degenerative joint disease) of hip HEMOGLOBIN A1C Routine 07/08/2012 12:50 PM EDT DJD (degenerative joint disease) of hip ALBUMIN LEVEL Routine 07/08/2012 12:50 PM EDT DJD (degenerative joint disease) of hip BASIC METABOLIC PANEL Routine 07/08/2012 12:50 PM EDT DJD (degenerative joint disease) of hip documented in this encounter Results * Urine culture Clean Catch Urine (07/08/2012 1:07 PM EDT) Urine Culture ? Patient Name: DIAMOND GAMING ?Ordered By: NICK ERVIN ? MR#: [id number] ?LOC: ??4V ? /Sex: ??1945 (66 years), ? Female ? PROCEDURE: Urine Culture ?SOURCE: U CC ? COLLECTED: 07/08/2012 13:07 ? STARTED: 07/08/2012 13:40 ? FINAL REPORT ? Final Report ? Verified: 012 08:48 ? 10,000-49,000 cfu/ml mixed mucosal guicho ? Note: Multiple bacterial morphotypes present. Suggest appropriate ? recollection with timely delivery to ? the laboratory, if clinically significant. ? CERNER MILLENNIUM Urine specimen obtained by clean catch procedure (specimen) 07/08/2012 1:07 PM EDT 07/08/2012 1:40 PM EDT Narrative Resulting Agency Comment Spec In Lab Authorizing Provider Result Froy Ervin MD MICROBIOLOGY - GENER AL ORDERABLES Performing Organization Address City/[facility]/ZIP Co de Phone Number CERNER MILLENNIUM * Urinalysis with microscopic (07/08/2012 1:07 PM EDT) Glucose, Urine Dipstick Negative Negative mg/dL CERNER MILLENNIUM Protein, Urine Dipstick Negative mg/dL CERNER MILLENNIUM Bilirubin, Urine Dipstick Negative Negative mg/dL CERNER MILLENNIUM Urobilinogen, Urine Dipstick Normal mg/dL CERNER MILLENNIUM pH, Urn (dipstick) 6.5 5.0 - 8.0 CERNER MILLENNIUM Blood, Urine Dipstick Negative mg/dL CERNER MILLENNIUM Ketone, Urine Dipstick Negative mg/dL CERNER MILLENNIUM Nitrite, Urine Dipstick Negative CERNER MILLENNIUM Leukocytes, Urine Dipstick Negative mcL CERNER MILLENNIUM Appearance, Urine Dipstick Clear Clear CERNER MILLENNIUM Specific [place] Urine Automated 1.017 1.002 - 1.030 CERNER MILLENNIUM Color, Urine Dipstick Yellow Yellow CERNER MILLENNIUM RBC, Urine <1 0 - 4 /HPF CERNER MILLENNIUM WBC, Urine 1 0 - 5 /HPF CERNER MILLENNIUM Urine specimen (specimen) 07/08/2012 1:07 PM EDT 07/08/2012 1:21 PM EDT Narrative Resulting Agency Comment Spec In Lab Authorizing Provider Result Froy Ervin MD URINE ORDERABLES CERRIGO DYERENNIUM * DIFFERENTIAL, AUTOMATED (07/08/2012 12:50 PM EDT) Neutrophil % 61.1 34.0 - 71.0 % VALERIE DYERENNIUM Neutrophil Absolute 3.83 1.50 - 6.30 x10(3)/mcL CERNER MILLENNIUM Lymph % 29.4 19.0 - 53.0 % CERNER MILLENNIUM Lymphocytes Abs 1.8 1.0 - 3.6 x10(3)/mcL CERNER MILLENNIUM Monocyte % 5.8 4.0 - 13.0 % CERNER MILLENNIUM Monocyte Abs 0.4 0.2 - 1.0 x10(3)/mcL CERNER MILLENNIUM Eos % 2.9 0.0 - 7.0 % CERNER MILLENNIUM Eosinophils Abs 0.2 0.0 - 0.5 x10(3)/mcL CERNER MILLENNIUM Basophil % 0.6 0.0 - 2.0 % CERNER MILLENNIUM Baso Absolute 0.0 0.0 - 0.2 x10(3)/mcL CERNER MANISHAENNIUM Immature Gran % 0.20 0.00 - 0.66 % CERNER MANISHAENNIUM Comment: Immature granulocytes(IG's)percentage and absolute count will include metamyelocytes, myelocytes, and promyelocytes. Blood smears from CBCs yielding IG's will be scanned manually for concordance. If this scan disagrees with the automated IG or if promyelocytes are noted, a manual differential will be performed. Immature Gran Absolute 0.01 0.00 - 0.05 x10(3)/mcL VALERIE MAYERIUM Blood specimen (specimen) 07/08/2012 12:50 PM EDT 07/08/2012 1:21 PM EDT Nick Ervin MD HEMATOLOGY ORDERABLE S VALERIE MAYERIUM * ANTIBODY SCREEN (07/08/2012 12:50 PM EDT) Ab Screen Interp Negative VALERIE MAYERIUM Expires at [id number] on: [id number] VALERIE MAYERIUM Blood specimen (specimen) 07/08/2012 12:50 PM EDT 07/08/2012 1:23 PM EDT Narrative Resulting Agency Comment Spec In Lab Nick Ervin MD BLOOD BANK LAB ORDER SALVATORE [facility] MANISHAMOUNT [facility]ENTERKRISHNA * ABO/RH TYPING (07/08/2012 12:50 PM EDT) Pathologist [facility] ABORH Type O Neg [facility] Blood specimen (specimen) 07/08/2012 12:50 PM EDT 07/08/2012 1:23 PM EDT Narrative Resulting Agency Comment Spec In Lab Nick Ervin MD BLOOD BANK LAB ORDER SALVATORE [facility] DYERMOUNT GRA[facility] CENTERKRISHNA * Hemoglobin A1c (07/08/2012 12:50 PM EDT) [facility] Hemoglobin A1c 5.5 4.3 - 6.1 % [facility] Estimated Average Glucose 111 mg/dL [facility] Comment: eAG equivalents for HbA1c percentages: HbA1c(%) ?eAG(mg/dL) 6.0 ?126 6.5 ?140 7.0 ?154 7.5 ?169 8.0 ?183 8.5 ?197 9.0 ?212 9.5 ?226 10.0 ? 240 Limitations: The eAG calculation has not been validated on women, individuals below 18 years old and above 70 years old, and individuals with hemoglobinopathies. Additional resources are available on the ADA website: ??http://professional.diabetes.org/glucosecalculator.aspx Reference: Ronn JUAREZ, Chase Brito, Shagufta R, et al. ??Translating the A1C assay into estimated average glucose values. ??Diabetes Care 2008:31(8):7393-8957. Blood specimen (specimen) 07/08/2012 12:50 PM EDT 07/08/2012 1:21 PM EDT Narrative Resulting Agency Comment Spec In Lab Nick Ervin MD CHEMISTRY ORDERABLES Performing Organization Address [facility] de Phone Number [facility] * Protein, total (07/08/2012 12:50 PM EDT) Protein, Total 6.9 6.4 - 8.3 gm/dL [facility] Blood specimen (specimen) 07/08/2012 12:50 PM EDT 07/08/2012 1:21 PM EDT Narrative Resulting Agency Comment Spec In Lab Nick Ervin MD CHEMISTRY ORDERABLES Performing Organization Address [facility] de Phone Number [facility] YouDataMOUNT GRA[facility]ENTERIUM * Albumin Level (07/08/2012 12:50 PM EDT) Albumin 4.7 3.2 - 5.2 gm/dL [facility] Blood specimen (specimen) 07/08/2012 12:50 PM EDT 07/08/2012 1:21 PM EDT Narrative Resulting Agency Comment Spec In Lab Nick Ervin MD CHEMISTRY ORDERABLES Performing Organization Address [facility] de Phone Number [facility] * High Sensitivity CRP (07/08/2012 12:50 PM EDT) C-Reactive Protein High Sensitivity 0.9 mg/L [facility] Comment: Interpretations: 1) For cardiac risk assessment, two values (fasting or nonfasting sample acceptable) taken at least 2 weeks apart, should be averaged to provide a more reliable estimate of marker level. ??This laboratory uses the recommendations from the AHA/CDC Scientific Statement for interpretations of future risks of cardiovascular events: ? <1.0 mg/L: low risk 1.0 - 3.0 mg/L: moderate risk >3.0 mg/L: high risk groups for future cardiovascular events 2) The general reference range of apparently healthy individuals using this test is <5.0 mg/L (derived from the test package insert) A few words of caution: For cardiac assessment, when a value >10 mg/L is encountered, there should be a search for an acute inflammatory condition or infection (in patients with acute inflammation, the concentration can increase to >500 mg/L). ??The >10 mg/L should be discarded if such a situation exists, since the risk for coronary heart disease cannot be provided, and a repeat specimen, taken at least two weeks after resolution of the acute inflammatory condition, may allow for appraisal of coronary risk information. Please note that significantly decreased CRP values may be obtained from samples taken from patients who have been treated with carboxypenicillins. References: 1. Hernandez DOUGLAS et. al. ??AHA/CDC Scientific Statement: Markers of Inflammation and Cardiovascular Disease. ??Circulation 2003; 107:499-511 2. Sreekanth PM. ??Clinical applications of C-reactive protein for cardiovascular disease detection and prevention. ??Circulation 2003; 107:363-369 Blood specimen (specimen) 07/08/2012 12:50 PM EDT 07/08/2012 1:21 PM EDT Narrative Resulting Agency Comment Spec In Lab Nick Ervin MD CHEMISTRY ORDERABLES Performing Organization Address [facility] Phone Number [facility]ITAL[facility] * Sedimentation rate (07/08/2012 12:50 PM EDT) Sedimentation Rate Automated 6 0 - 20 mm/hr [facility] StartupDigestATRI[facility] Blood specimen (specimen) 07/08/2012 12:50 PM EDT 07/08/2012 1:21 PM EDT Narrative Resulting Agency Comment Spec In Lab Authorizing Provider Result Froy Ervin MD HEMATOLOGY ORDERABLE S Performing Organization Address [facility] de Phone Number [facility] Conf[employer] * APTT (07/08/2012 12:50 PM EDT) Partial Thromboplastin Time 30 25 - 35 sec [facility] MARYVALE MILLENNIUM Comment: Recommended therapeutic PTT range for full dose unfractionated heparin is 80-114 seconds. Blood specimen (specimen) 07/08/2012 12:50 PM EDT 07/08/2012 1:21 PM EDT Narrative Resulting Agency Comment Spec In Lab Authorizing Provider Result Froy Ervin MD HEMATOLOGY ORDERABLE S Performing Organization Address [facility] de Phone Number [facility]ITAL[facility]IG[facility]DEW[facility] * Prothrombin Time (07/08/2012 12:50 PM EDT) Prothrombin Time 12.6 11.9 - 14.7 sec [facility] MILLENNIUM Comment: [facility] Transfusion Committee Guidelines: INR less than 2.0, PTT less than OR equal to 43.5 seconds, or Fibrinogen greater than or equal to 100 mg/dl indicate adequate procoagulant activity for hemostasis in patients without underlying bleeding disorders. International Normalization Ratio 0.9 0.9 - 1.1 [facility] Blood specimen (specimen) 07/08/2012 12:50 PM EDT 07/08/2012 1:21 PM EDT Narrative Resulting Agency Comment Spec In Lab Authorizing Provider Result Froy Ervin MD HEMATOLOGY ORDERABLE S Performing Organization Address [facility] Phone Number [facility]OS[facility]ITALRIGO MAYERATRIUM [facility] * Basic Metabolic Panel (non-fasting) (07/08/2012 12:50 PM EDT) Glucose 93 60 - 199 mg/dL [facility] MILLMOUNT GRA[facility] MED[facility] CENTERIUM Comment:Diabetes: >=200 mg/d L plus symptoms Blood Urea Nitrogen 14 8 - 18 mg/dL [facility] MILLENNIUM Creatinine 0.74 0.70 - 1.20 mg/dL [facility] MILLENNIUM Comment: Please note that the pediatric reference intervals supplied above were not validated at [facility]. Results from pediatric patients should be interpreted in conjunction to the patient's age, height and muscle mass. Sodium 140 135 - 145 mmol/L [facility] MILLENNIUM Potassium 4.2 3.5 - 5.0 mmol/L [facility] MILLENNIUM Comment: Please note: ??Patients with WBC >100,000 may have falsely elevated Potassium levels. ??For accurate Potassium quantification in these patients send serum separator tube (gold top) for subsequent determinations. ??Contact the Clinical Chemistry Laboratory if there are any questions. Chloride 103 98 - 107 mmol/L CERNER MILLENNIUM Carbon Dioxide 26 22 - 31 mmol/L CERNER MILLENNIUM Anion Gap 11 5 - 15 mmol/L CERNER MILLENNIUM Calcium 9.6 8.5 - 10.5 mg/dL CERNER MILLENNIUM Est Glomerular Filtration Rate >60 >=60 CERNER MILLENNIUM Comment: The National Kidney Disease Education Program (NKDEP) has recommended all laboratories report estimated GFR (eGFR) along with plasma creatinine measurements to assist you with recognition of early kidney disease. Caveats: ??Plasma creatinine should be at steady-state (unchanged within the past week). For patients multiply eGFR by 1.2. The MDRD equation was developed using patients between the ages of 18 and 70 years. ?? The MDRD equation has not been validated for patients < 18 years of age and should not be used to assess renal function in the pediatric population. ??The MDRD eGFR equation will also overestimate the true GFR of patients above the age of 70. ??This overestimation is variable but increases with age. At present, NKDEP does NOT recommend using the MDRD equation for drug dosing purposes and pharmacists should continue to use their current dosing methods. In addition, numerical eGFR values greater than 60 ml/min/1.73 square meters should be treated as > 60, and not an exact number due to greater inaccuracies at these higher values. Per NKDEP, they classify normal renal function as any GFR >60ml/min/1.73 square meters; chronic kidney disease when GFR <60, and renal failure when GFR <15. ??This calculation may not be valid for patients with atypical muscle mass (very lean or obese), acute renal failure, and in patients with diabetic kidney disease. References: http://nkdep.nih.gov/resources/NKDEP_Suggestn4Labs_0606_508.pdf http://www.kidney.org/professionals/kls/pdf/faq_gfr.pdf Alex K, Kamilla NA, Ladi AK, Fan TS, Peyton AD, Luis DOLORES. Relative performance of the MDRD and CKD-EPI equations for estimating glomerular filtration rate among patients with varied clinical presentations. Clin J Am Soc Nephrol;6:1963-72. Blood specimen (specimen) 07/08/2012 12:50 PM EDT 07/08/2012 1:21 PM EDT Narrative Resulting Agency Comment Spec In Lab Nick Ervin MD CHEMISTRY ORDERABLES VALERIE MAYERIUM * CBC (with Diff) (07/08/2012 12:50 PM EDT) White Blood Cell 6.3 4.0 - 10.0 x10(3)/mcL CERNER MILLENNIUM Red Blood Cell 4.88 3.93 - 5.22 x10(6)/mcL CERNER MILLENNIUM Hemoglobin 14.0 11.2 - 15.7 gm/dL CERNER MILLENNIUM Hematocrit 42.6 34.0 - 45.0 % CERNER MILLENNIUM Mean Cell Volume 87.3 79.0 - 94.0 fL CERNER MILLENNIUM Mean Cell Hemoglobin 28.7 26.6 - 32.2 pg CERNER MILLENNIUM Mean Cell Hemoglobin Concentration 32.9 32.0 - 36.5 gm/dL CERNER MILLENNIUM Platelet 241 145 - 370 x10(3)/mcL CERNER MILLENNIUM RDW Standard Deviation 42.3 35.0 - 46.0 fL CERNER MILLENNIUM RDW coefficient of variation 13.3 10.9 - 14.4 % CERNER MILLENNIUM Mean Platelet Volume 11.5 9.0 - 12.0 fL CERNER MILLENNIUM Blood specimen (specimen) 07/08/2012 12:50 PM EDT 07/08/2012 1:21 PM EDT Narrative Resulting Agency Comment Spec In Lab Authorizing Provider Result Froy Ervin MD HEMATOLOGY ORDERABLE S VALERIE TOPETE documented in this encounter Visit Diagnoses Diagnosis DJD (degenerative joint disease) of hip Osteoarthrosis, unspecified whether generalized or localized, pelvic region and thigh documented in this encounter Care Teams Byproducts Extractor Relationship Specialty Start Date End Date Mariluz Watts MD [address] [place] [address] [address] [place] [address] PCP - General 08/22/10 documented as of this encounter
--- OUTSIDE RECORDS SUMMARY | 2024-05-18 20:01 | XMS_ITS | Encounter Summary ---
Author Organization [facility] [place] [address] Care Team Providers Care Gutter Mouth Cutter Name Role Phone Mariluz Watts MD Primary Care Provider [phone] Encounter Details Date Type Department Care Team (Latest Contact Info) Description 07/08/2012 1:43 PM EDT - 07/08/2012 11:59 PM EDT Hospital Encounter XRay at [address] [place] [address] CLINIC, Kian Stone MD [address] [place] [address] DJD (degenerative joint disease) of hip Discharge [...] PM EST Office Visit General Surgery at [facility] [place] [address] Paula Harris, PA [facility] [place] [address] 01/26/2025 9:50 AM EDT Appointment Mammography/[place] [phone] Joan Deutsch, [facility] [place] [address] 01/26/2025 10:50 AM EDT Office [place] [phone] Joan Deutsch, [facility] [place] [address] documented as of this encounter Procedures Procedure Name Priority Date/Time Associated Diagnosis Comments XR CHEST PA AND LATERAL Routine 07/08/2012 1:49 PM EDT DJD (degenerative joint disease) of hip documented in this encounter Results * XR chest routine PA & lateral (07/08/2012 1:49 PM EDT) Anatomical Region Laterality Modality Chest N/A Radiographic Crystal ging 07/08/2012 1:49 PM EDT Narrative 07/08/2012 2:52 PM EDT Examination CHEST ROUTINE PA+LAT Clinical History Reason for exam and clinical history: Preoperative; LT HIP REPLACEMENT Comparison 02/06/2010. Technique PA and lateral views of the chest. Findings Lungs appear clear. ??No change in the cardiomediastinal silhouette, including tortuous descending thoracic aortic contour. ??Angela and pulmonary vessels are within normal limits. ??No pleural effusion is seen. ??No interval osseous findings, but new interval left breast surgical clips. Impression No active cardiopulmonary pathology. Procedure Note Fariha Sharpe MD - 07/08/2012 Examination CHEST ROUTINE PA+LAT Clinical History Reason for exam and clinical history: Preoperative; LT HIP REPLACEMENT Comparison 02/06/2010. Technique PA and lateral views of the chest. Findings Lungs appear clear. No change in the cardiomediastinal silhouette,including tortuous descending thoracic aortic contour. Angela and pulmonary vesselsare within normal limits. No pleural effusion is seen. No interval osseous findings, but new interval left breast surgical clips. Impression No active cardiopulmonary pathology. Authorizing Provider Result Froy Ervin MD IMG DX ORDERABLES documented in this encounter Visit Diagnoses Diagnosis DJD (degenerative joint disease) of hip Osteoarthrosis, unspecified whether generalized or localized, pelvic region and thigh documented in this encounter Care Teams Gutter Mouth Cutter Relationship Specialty Start Date End Date Mariluz Watts MD [address] [facility] [address] [place] [address] PCP - General 08/22/10 documented as of this encounter
--- OUTSIDE RECORDS SUMMARY | 2024-05-18 20:01 | XMS_ITS | Encounter Summary ---
[place] [address] Care Team Providers Care Substitute School Nurse Name Role Phone Mariluz Watts MD Primary Care Provider [phone] Encounter Details Date Type Department Care Team (Late st Contact Info) Description 07/22/2012 2:39 PM EDT - 07/22/2012 4:52 PM EDT Surgery [place] [address] Nick Ervin MD [address] [place] [address] TOTAL HIP ARTHROPLASTY, ANTERIOR APPROACH (WRVU 19.6) Social History Tobacco Use Types Packs/Day Years [...] Sign Reading Time Taken Comments Blood Pressure 114/70 07/25/2012 1:10 PM EDT Pulse 87 07/25/2012 1:10 PM EDT Temperature 37.3 ??C (99.1 ??F) 07/25/2012 1:10 PM ED T Respiratory Rate 16 07/25/2012 1:10 PM EDT Oxygen Saturation 92% 07/25/2012 9:55 AM EDT Inhaled Oxygen Concentration - - Weight 99.3 kg (219 lb) 07/22/2012 1:44 PM EDT Height 167.6 cm (5' 6) 07/22/2012 1:44 PM EDT Body Mass Index 35.35 07/22/2012 1:44 PM EDT documented in this encounter Discharge Instructions * Discharge Instructions* Francheska Buchanan PA - 07/25/2012 5:15 PM EDT Activity: You are ONLY 50% partial weight bearing on your Left leg using a walker or crutches at all times for balance and protection. Wear the FRANKIE hose bilaterally to your lower legs until you are seen in followup. You should remove these at least once per day to inspect your skin. . Anti-coagulation follow up: You have been discharged on Rivaroxaban 10mg daily 35 days from surgery. On August 26 stop the Rivaroxaban after your morning dose. On August 27, begin enteric coated Aspirin 325mg twice a day with food for a total anticoagulation time of 6 weeks. On Augustop the Aspirin after your last dose.. Diet: Resume usual home diet but increase your intake of fluids and fiber while you are on narcotics to prevent constipation.Drink PLENTY of fluids to stay hydrated. Increase the amount of protein inyour diet to promote healing. Add a protein shake to each meal until you are eating normally. Driving: NO driving until you are cleared to do so by your surgeon. You should NOT drive while you are on narcotic pain meds as these can affect your judgement and reaction times. Contact your surgeon with any questions. Medications: 1. The pain medication you are on can cause constipation so increase your intake of fluids and fiber while you are on them. The stool softener, Sennakot, that has been prescribed can also be taken tofacilite a bowel movement. You can take an [id number] medication, miralax if needed to combatconstipation. 2. If you need a renewal on your narcotic pain medication, you need to give the Orthopedic clinic enough time to process your request. This can take up to three days, so plan accordingly. 3. Continue to take the tylenol around the clock for the next 7 days. It can be effective in controlling pain along with your other medications. 4. You have been discharged on Dilaudid 2-4 mg every 4 hours as needed for pain. As your pain improves, it is VERY important to decrease your dose of Dilaudid and space your doses further apart. Shower: 1. You can shower but remember your activity limitations and always have a chair available for balance and protection. DO NOT submerge the dressing/incision. 2. DO NOT let water run over the operative dressing. If it gets damp or wet lightly pat the dressing dry. 3. Subq sutures: When this operative dressing (Mepilex) is removed you can let water gently run over the incision. DO NOT submerge the incision. Wound Care: : 1. You do not have any external sutures or fariba in place. Your sutures are internal and will be absorbed over time. 2. Remove your operative dressing 7 days from your surgery (July 29). When it is removed you can leave the incision open to air or cover it with a light dressing 3. If you have lots of drainage when you get home (and it is before July 29), remove this operative dressing and replace it with dry sterile gauze. Continue with daily dressing changes (and as needed) until the drainage stops, then remove the dressing and leave the incision open to air or lightly covered. Misc: Remember that ICE and elevation are very important after surgery to help decrease swelling and control pain. Use ICE for 20-30 minutes at a time and keep your leg elevated as much as possible. FOLLOWUP APPOINTMENTS: X-rays in Radiology 3T prior to follow up appointment: August 18 at 11:45 AM. Follow up appointment with Dr. Ervin in Orthopedics 3C: August 18 at 12:45 PM. documented in this encounter Medications at Time [...] Take 500 mg by mouth daily. 12/03/2012 erythromycin base (E-MYCIN) 500 mg tabletIndications:R osacea Take 1 tablet by mouth 2 times daily. 60 tablet 2 04/04/2012 08/04/2012 tretinoin (RETIN-A) 0.05 % creamIndications:Ro sacea Apply topically nightly. 45 g 1 11/13/2011 08/27/2012 citalopram (CELEXA) 40 mg tabletIndications:d epression Take 40 mg by mouth daily. Indications: Depression 05/20/2013 documented as of this encounter Progress Notes * Marily Muprhy RN - 07/25/2012 6:54 PM EDT IV removed. My assessment remains unchanged from my previous assessment. Pt denies chest pain and shortness of breath. Discussed pain management with patient, pain tolerable. Pt has all belongings. Pt received discharge summary and prescriptions. These were reviewed. All questions answered. Pt encouraged to call with questions or concerns. Report called and given to [facility]NA. * Gina Llanos PT - 07/25/2012 5:11 PM EDT Physical Therapy Note Visit #3 Patient Profile: Pt. is a 66 y.o. female admitted on 07/22/2012 by Nick Rush MD for L ARSLAN anterior Hueter approach w/ Jesup table. Pt has a cerclage wire for intra-op calcar fracture so limited to 50% WB L LE. 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 One level home w/ only 1 step to enter. Precautions/Special Considerations: no hip precautions except 50% WB L LE due to intra-op calcar fracture Subjective: I'm having hallucinations from the pain medications. The hardest task is getting in/OOB. I'm feeling fine walking w/ the crutches. Objective: Pt demonstrating the following: ?? Pt worked on bed mobility: decided to roll using pillow btw knee's to R side of bed (side she'lluse @ home) and this worked for her today. She used the leg pole peeling machine operator helper to assist L LE back into bed andable to do this (I). ?? Sit > stand (I) w/ effort as L LE still sore but she's strong enough and up to walker easier since she has to reach for crutches. She has a walker @ home and friend to retrieve out of her attic(storage). ?? Walking w/ crutches, she did very well and is able to keep 50% on L LE, protected WB. Able to walk around 3 west unit 150' (I), supervised but very steady and (I) with them. ?? Ice pack applied to L hip after activity, needs & call christensen within reach. Assessment: Pt is POD#3 L ARSLAN anterior Heuter approach w/ Jesup table. Pt has a cerclage wire for intra-op calcar fracture so limited to 50% WB L LE. Pt meeting PT goals and each day is moving more (I) and walking further distances and more often. Her main concern is the hallucinations she's had and believes it's the medications; working w/ teamon med's. Ambulation distance: 150 feet (I) w/ crutches Goals: (to be achieved by 10-25-12) Goal met? Yes No Pt will be knowledgeable of prescribed exercises. x Pt will be knowledgeable and compliant with 50% WB precautions. 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 x Pt will move sit<>stand (I) to walker. x Pt will ambulate at least 50 feet using walker or crutches 50% WB L LE x Pt will negotiate 1 step using walker/or crutches to enter home safely. x Discharge Recommendations: Patient would benefit from continued therapeutic interventions 2-3 times a week as provided in a home environment to progress toward functional goals. She has a friend that will stay to help her x 2 weeks she states. Plan: Plan cleared PT for d/c. Equipment needs: Patient has all necessary equipment. She has a friend that can get her equip from attic. Total treatment time: 20 minutes Total timed treatment: 20 minutes functional activity GINA LLANOS PT Pager: [phone] * Hero Dsouza - 07/25/2012 2:13 PM EDT Retail Warehouse Supervisor Encounter Note Patient Name: Diamond Gaming : [id number] MR#: [id number] Admit Date: 07/22/2012 1:26 PM Hospital Day 3 days Narrative:Visited to introduce and assess acceptance of Retail Warehouse Supervisor services. Assessment:Patient coping positively with stresses of illness/hospitalization at this time. Pt was in the chair and in good spirits. Pt is living by herself an hs children and grand children. 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 Intervention and Outcome:Retail Warehouse Supervisor services accepted. Conversation to build trusting relationship.Provided prayer. Provided pastoral presence. Provided spiritual guidance. Provided supportive counseling listening presence. Follow-up: Follow-up visit for continued assessment and support. Time in Direct Care: 20 mins Hero Dsouza 07/25/2012 * Jamee Cabrera OTA - 07/25/2012 11:39 AM EDT Occupational Therapy Treatment Note Visit #: 3 Patient Dx: Diamond Gaming is a 66 y.o. female patient of Nick Rush MD, admitted on 07/22/2012 s/p L ARSLAN-anterior approach. Pt with an intra-op fx. Precautions/Special Considerations: 50% WB LLE Interval History: pt reporting hallucinations S: I really don't feel like doing anything today. I'm having a hard time moving my bowels, my legsare swollen and heavy, I'm thirsty, I've been hallucinating. Pt also reports ongoing nausea with 1episode of vomiting this morning. O: Patient In the bathroom upon therapists arrival. Pt reluctant to participate in therapy this morning though agreeable with minimal encouragement. Pt seen for therapeutic activities and demonstrated the following: ?? Self-care: Independent toileting. ?? Functional Mobility: Min A supine to sit from flat bed; see PT note for additional information re: transfer. Supervision, extra time, and leg pole peeling machine operator helper needed for sit to supine transfer. Supervision sit to stand using crutches for support. SBA ambulating around unit 1 time with crutches for supportvs walker 2/2 pt's home more accessible with crutches. Pt continues to demonstrate compliance with WB limitations. ?? Cognition: Alert and oriented though lethargic and c/o experiencing hallucinations. Cooperative and appreciative of therapy session. Motivated towards functional independence. ?? Endurance: Pt reports fatigue with ambulating on unit; pt noted to be perspiring. Upon return toroom pt's O2 sats ranging from 93-98% with HR in mid- high 90's. ?? Strength: decreased strength in LLE Pain: pt reports pain in LLE gets better every time I get up. Education: Pt/family education ongoing Staff Communication: Patient status, treatment, and mobility recommendations discussed with nursing/other staff. A: Pt with c/o nausea/vomiting, significant thirst, fatigue, discomfort from lack of BM, and hallucinations. Pt was able to ambulate around unit today with the goal of going to the kitchen for IADL activity, however, pt unable to tolerate additional activity 2/2 above complaints. Pt continues to struggle with supine to sit transfer from flat bed though progressing towards independence. Pt remainsmotivated towards functional independence and demonstrates excellent participation in therapy. Pt will benefit from ongoing therapeutic interventions to achieve pt's and therapy goals. Occupational Therapy Goals: To be achieved by 07/30 . Pt will demonstrate independence with precautions/restrictions during ADLs. MET Pt will perform sink level ADLs with supervision only. ONGOING Pt will dress self independently using adaptive technique/equipment as needed. Pt will ambulate within room for ADLs with assistive device as needed. MET Plan: Pt to be seen 3-5xs per week for therapy including Transfers, Assistive device/technique, Adaptive equipment training, ADL, Safety, Functional Mobility, Activity pacing/Energy conservation, Home Management, Balance, Recommendations, Family training and Discharge planning . Eval date: 07/23/2012 Total time spent with patient: 24 minutes Total timed interventions: 24 minutes; there ex functional x 2 Pager: [phone] ELLA MOYER Occupational Therapy Rehabilitation Department * Marily Murphy RN - 07/25/2012 11:27 AM EDT Pt states, I've been having auditory hallucinations. I wake up and I'm talking to people that I know are not in the room, because they are not responding. This happened to me before in 2004. I just switched my medications to nightly instead of having them in the morning, and it went away PA notified. Will continue to monitor. * Gina Llanos PT - 07/24/2012 10:06 PM EDT Physical Therapy Note Visit #2 Patient Profile: Pt. is a 66 y.o. female admitted on 07/22/2012 by Nick Rush MD for L ARSLAN anterior Hueter approach w/ Jesup table. Pt has a cerclage wire for intra-op calcar fracture so limited to 50% WB L LE. 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 One level home w/ only 1 step to enter. Precautions/Special Considerations: no hip precautions except 50% WB L LE due to intra-op calcar fracture Post-operative course: Improved mood but experiencing pain during sit >< stand or bed mob transitions. Subjective: I did walk earlier and I need your help to go again. Sorry about yesterday(emotions). The person staying w/ me is coming tomorrow so I'll have her go to the attic for the equipment (walker). Yes, lets try the crutches, I used them when I had my other hip done. Objective: Pt demonstrating the following: ?? Pt sitting reclined in chair visiting a friend. ?? She's taken pain med's 2 hrs' prior to therapy ?? Sit > stand from chair very slow and a lot of effort as pt reports pain L hip, needed to pushfrom both UE's and R LE, had her L foot out and didn't use until part way up. Will be able to reachto walker but today trying to use crutches so had to let go w/ 1 hand to get crutches and needed CGassist until crutches situated. ?? Walking w/ crutches, she did very well and is able to keep 50% on L LE, protected WB. She has strong UE's and is steady w/ crutches. ?? She walked into hallway w/ axillary crutches and back to room ~ 50' x 2. ?? She wished to go back to bed after walk. ?? She used leg pole peeling machine operator helper and almost had L LE up and last minute asked for my help. She will have a friend staying with her @ home so will have 1 person assist as needed. ?? Ice pack applied to L hip after activity, needs & call christensen within reach. ?? Pt planning on d/c home tomorrow. Education: patient reminded of no formal hip precautions w/ anterior surgery but 50% WB on L LE due to fx and verbalizes understanding. Reviewed gait w/ axillary crutches as she may use them until friend able to get her walker from attic (out of storage). Patient status, treatment, and mobility recommendations discussed with nursing staff. Assessment: Pt is POD#2 L ARSLAN anterior Heuter approach w/ Jesup table. Pt has a cerclage wire for intra-op calcar fracture so limited to 50% WB L LE. Pt able to perform gait with above restrictions and is managing w/ walker or crutches. Sit >< stand and transfer's into bed still taking effort and she reports are painful. She will have help @ home; friend arriving tomorrow. Ambulation distance: 5o feet x 2 (50' out and 50' back to room) Goals: (to be achieved by 10-25-12) Goal met? Yes No Pt will be knowledgeable of prescribed exercises. x Pt will be knowledgeable and compliant with 50% WB precautions. 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 x Pt will move sit<>stand (I) to walker. x Pt will ambulate at least 50 feet using walker or crutches 50% WB L LE x Pt will negotiate 1 step using walker/or crutches to enter home safely. x Discharge Recommendations: Patient would benefit from continued therapeutic interventions 2-3 times a week as provided in a home environment to progress toward functional goals. She has a friend that will stay to help her x 2 weeks she states. Physical Therapist recommends: Occupational Therapy consult Plan: Plan to check w/ pt on further practice of bed mob or transfer's or gait pior to d/c tomorrow. Patient agrees to the plan as stated. Equipment needs: Patient has all necessary equipment. She has a friend that can get her equip from att. Total treatment time: 28 minutes Total timed treatment: 28 minutes functional activity GINA LLANOS PT Pager: [phone] * Jamee Cabrera OTA - 07/24/2012 4:27 PM EDT Occupational Therapy Treatment Note Visit #: 2 Patient Dx: Diamond Gaming is a 66 y.o. female patient of Nick Rush MD, admitted on 07/22/2012 s/p L ARSLAN-anterior approach. Pt with an intra-op fx. Precautions/Special Considerations: 50% WB LLE Interval History: no acute events S: I figured I would try to get up on my own a couple of times with the HOB up instead of from a flat position. O: Patient seen for therapeutic activities and demonstrated the following: ?? Self-care: Supervision brushing teeth standing sink side. Independent toileting hygiene. Independent donning robe in standing. ?? Functional Mobility: Supervision supine >< sit with HOB elevated, extra time, and using leg pole peeling machine operator helper to assist LLE. Supervision sit to stand. Supervision ambulating to/from bathroom and nursesstation with FWW. Pt demonstrates appropriate compliance with WB limitations without vc. ?? Cognition: Alert and oriented. Cooperative and appreciative of therapy session. Motivated towards functional independence. ?? Endurance: Pt reports fatigue with ambulating to/from nurses station. ?? Strength: decreased strength in LLE Pain: pt reports 5/10 pain in LLE; pain medication received during tx. Education: Pt/family education ongoing Staff Communication: Patient status, treatment, and mobility recommendations discussed with nursing/other staff. A: pt tolerated tx session well. Pt demonstrates independence with WB compliance without vc. Pt presents with decreased activity tolerance. Pt is able to perform supine to sit transfer with SBA though with HOB elevated and extra time needed. Pt is motivated towards functional independence and demonstrates excellent participation in therapy. Pt will benefit from ongoing therapeutic interventions to achieve pt's and therapy goals Occupational Therapy Goals: To be achieved by 07/30 . Pt will demonstrate independence with precautions/restrictions during ADLs. MET Pt will perform sink level ADLs with supervision only. ONGOING Pt will dress self independently using adaptive technique/equipment as needed. Pt will ambulate within room for ADLs with assistive device as needed. MET Plan: Pt to be seen 3-5xs per week for therapy including Transfers, Assistive device/technique, Adaptive equipment training, ADL, Safety, Functional Mobility, Activity pacing/Energy conservation, Home Management, Balance, Recommendations, Family training and Discharge planning . Eval date: 07/23/2012 Total time spent with patient: 30 minutes Total timed interventions: 30 minutes; there ex functional x 2 Pager: [phone] ELLA MOYER Occupational Therapy Rehabilitation Department * Joan Carballo RN - 07/23/2012 10:30 PM EDT Assumed care of patient from [id number]. AOX4. HRR. VSS. Pt denies SOB, chest pain, N/V, numbness ortingling. Pt tolerating PO. ABD soft, non-tender. Voiding independently. Pain rated at 4/10 and tolerable. L hip DSG C/D/I. Call christensen within reach. Will continue to monitor. * Ashley Michelle - 07/23/2012 9:26 PM EDT Orthopaedic Surgery Inpatient Progress Note Diamond Gaming is a 66 y.o. female who underwent Left anterior Total Hip Replacement. Date of Admission: 07/22/2012 Hospital Day 1 day Subjective: The patient denies chest pain or shortness of breath, nausea or vomiting. Pain is undercontrol. Concerned as she doesn't think she will have enough help to go home until Saturday. Objective: Last value Range last 24 hrs Temperature Temp: 37.1 ??C (98.8 ??F) Temp: [36.5 ??C (97.7 ??F)-37.1 ??C (98.8 ??F)] Heart Rate Heart Rate: 100 Heart Rate: [75-100] Blood Pressure BP: 101/59 mmHg BP: (101-120)/(59-66) Respiratory Rate Resp: 18 Resp: [16-18] SpO2 SpO2: 93 % SpO2: [93 %-98 %] Intake/Output Summary (Last 24 hours) at 07/23/122125 Last data filed at 07/23/12 194 Gross per 24 hour Intake 360 ml Output 1950 ml Net -1590 ml Physical Exam: General: alert and oriented and no apparent distress Cardio Vascular: RRR checked peripherally Respiratory: breathing comfortably on room air Extremity Exam: Left Hip: Dressing is clean, dry and intact. Thigh:soft Calves:soft and non-tender Sensation: superficial peroneal intact, deep peroneal intact and tibial intact Motor Function: ankle plantar flexion intact, ankle dorsiflexion intact, and EHL intact, Dorsalis Pedal pulse is present Laboratory Lab Results Component Value Date WBC 14.6* 07/23/2012 Hemoglobin 10.7* 07/23/2012 Hematocrit 31.9* 07/23/2012 Platelets 194 07/23/2012 Potassium 4.9 07/23/2012 Calcium 8.3* 07/23/2012 Glucose Lvl 148 07/23/2012 BUN 14 07/23/2012 Creatinine 0.51* 07/23/2012 Assessment: 66 y/o female POD#1 L ATHA with a cerclage wire for intra-op calcar fracture. Doing well this am. Plan: ?? Mobilize with Physical Therapy. Weight bearing 50% weight bearing ?? No Hip Precautions ?? Change dressing daily, starting POD #7 (mepilex) ?? Antibiotics x 24 hours-completed ?? Pain Control: oral analgesia ?? DVT Prophalaxis: rivaroxiban ?? Discharge Planning: Home with VNA likely Saturday per PT recommendations. Follow up in 4-6 weeks with AP Pelvis and Lateral Hip X-Rays. ASHLEY MICHELLE MD 07/23/2012 * Miquel Flores RN - 07/23/2012 4:14 PM EDT S: I am not having a good day. O: Chart reviewed and met with pt and friend. Pt had L ARSLAN (anterior approach) with intra-op fx yesterday by Dr Ervin. 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 Pt had R ARSLAN In 03/04. Pt denies the need for in-pt rehab and feels she can manage at home with VNA. Pt requests [facility] for services. Pt will be on RIvaroxaban , SQ sutures, and will need PT for skilled assessments and Home PT for ARSLAN protocol. Pt has the DME she needs. A: Progressing toward d/c to home with VNA and family/friends' assist. P: Will follow. * Nick Ervin MD - 07/23/2012 5:51 AM EDT Orthopaedic Surgery Inpatient Progress Note Diamond Gaming is a 66 y.o. female who underwent Left anterior Total Hip Replacement. Date of Admission: 07/22/2012 Hospital Day 1 day Subjective: The patient denies chest pain or shortness of breath. Complaining of nausea and dry mouth this am. On Pain is under control. Objective: Last value Range last 24 hrs Temperature Temp: 36.7 ??C (98.1 ??F) Temp: [36.4 ??C (97.5 ??F)-36.9 ??C (98.4 ??F)] Heart Rate Heart Rate: 88 Heart Rate: [72-108] Blood Pressure BP: 109/63 mmHg BP: (87-171)/(53-86) Respiratory Rate Resp: 16 Resp: [12-16] SpO2 SpO2: 98 % SpO2: [95 %-100 %] Intake/Output Summary (Last 24 hours) at 07/23/12 0732 Last data filed at 07/23/12 0440 Gross per 24 hour Intake 5150 ml Output 2375 ml Net 2775 ml Physical Exam: General: alert and oriented and no apparent distress Cardio Vascular: RRR checked peripherally Respiratory: breathing comfortably on room air Extremity Exam: Left Hip: Dressing is clean, dry and intact. Thigh:soft Calves:soft and non-tender Sensation: superficial peroneal intact, deep peroneal intact and tibial intact Motor Function: ankle plantar flexion intact, ankle dorsiflexion intact, and EHL intact, Dorsalis Pedal pulse is present Laboratory Lab Results Component Value Date WBC 14.6* 07/23/2012 Hemoglobin 10.7* 07/23/2012 Hematocrit 31.9* 07/23/2012 Platelets 194 07/23/2012 Potassium 4.9 07/23/2012 Calcium 8.3* 07/23/2012 Glucose Lvl 148 07/23/2012 BUN 14 07/23/2012 Creatinine 0.51* 07/23/2012 Assessment: 66 y/o female POD#1 L ATHA with a cerclage wire for intra-op calcar fracture. Nauseatedthis morning complaining of dry mouth but does not want to try phenergan or compazine or change scopolamine patch. Plan: ?? Mobilize with Physical Therapy. Weight bearing 50% weight bearing ?? No Hip Precautions ?? Change dressing daily, starting POD #7 (mepilex) ?? Antibiotics x 24 hours ?? Pain Control: oral analgesia ?? DVT Prophalaxis: rivaroxiban ?? Discharge Planning: Home versus rehab per PT recommendations. Follow up in 4- 6 weeks with AP Pelvis and Lateral Hip X-Rays. ASHLEY MICHELLE MD 07/23/2012 Attending Note. I have seen the patient, I have reviewed the care plan as described, and I agree (with any changes or additions outlined below). I explained the intraoperative calcar fracture, limitations in WB and the fact that this is unlikely to have any long-term impact on her hip function. She seemed relieved by that, anticipate home likely Saturday, she lives alone. Nick Ervin MD * Morgan Snider RN - 07/23/2012 1:09 AM EDT Patient admitted to 307 from PACU. She is A&OX4, LLE with good CSM, crowley patent, pain 2/10. Dsg dry and intact. * Shahzad Love MD - 07/22/2012 8:36 PM EDT Orthopaedic Surgery Post-Op Check Note Surgery: Left Anterior ARSLAN Patient Active Problem List Diagnoses Code ??? Anxiety associated with depression 300.4BM ??? 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 Diverticulosis 562.10G ??? Degenerative joint disease 715.90AF ??? Breast cancer, stage 2 174.9BV ??? Rosacea 695.3 ??? GI bleeding 578.9AB ??? Hip pain 719.45F ??? S/P hip replacement V43.64AC ??? s/p L ATHA with Dr. Ervin 07/22/12 V43.64CS S/Events: Denies CP, SOB, nausea, vomiting, abd pain. Pain well controlled. Denies paresthesia in lateral left thigh. O: Vitals: Temp: [36.4 ??C (97.5 ??F)-36.9 ??C (98.4 ??F)] Heart Rate: [75-108] Resp: [12-16] BP: (87-171)/(53-86) SpO2: [95 %-100 %] I/O last 3 completed shifts: In: 4700 [I.V.:4700] Out: 1750 [Urine:250; Blood:1500] I/O this shift: In: 450 [I.V.:450] Out: 175 [Urine:175] Exam: General: NAD, awake/alert Resp: Breathing comfortably Abd: S/NT/ND LLE: Dressing c/d/i. Motor intact to EHL, FHL, TA. Sensation intact in foot/calf. Brisk capillary refill distally. Labs: Recent Labs Basename 07/22/12 1830 ??? WBC 16.4* ??? HGB 10.5* ??? HCT 32.1* ??? PLATELET 209 ??? NA -- ??? K -- ??? CL -- ??? CO2 -- ??? BUN -- ??? CREATININE -- Imaging: Date: 07/22/12 - AP Pelvis The left hip is reduced. There is a cerclage wire present around proximal femur. Intra-op fracture appears to be stable. A/P: 66 y.o. year old female POD#0 s/p left anterior ARSLAN, progressing well with stable vitals and uop. - Orders reviewed - continue all post-operative care - No hip precautions documented in this encounter H&P Notes * Nick Ervin MD - 07/22/2012 2:57 PM EDT I have seen and examined the patient, there are no changes in the interval history and physical, and no apparent contraindication to proceeding with surgery. documented in this encounter Procedure Notes * Provider, Scanning - 07/27/2012 12:24 PM EDTAssociated Order(s): SCAN DOC: IMPLANTABLE DEVICES documented in this encounter Miscellaneous Notes * Miscellaneous - Provider, Scanning - 07/27/2012 12:34 PM EDT * Plan of Care - Marily Murphy RN - 07/25/2012 11:11 AM EDT Problem: Pain, Acute (Adult, Obstetric) Intervention: Acute Pain: Related Risk Factors Pt rating pain about 5/10. Pain located left hip. Pt tolerating oral medications as needed. Pt calling for assistance when needed. Will continue to monitor. Problem: Physical Mobility, Impaired (Adult, Obstetric) Intervention: Muscle Strengthening Pt encouraged to ambulate outside of room. Muscle strengthening exercises encouraged. Call christensen within reach. Will continue to monitor. Problem: Skin Integrity Impairment, Risk/Actual (Adult, Obstetric) Intervention: Skin Integrity Impairment, Risk/Actual: Related Risk Factors Incision to left hip is clean, dry, and intact. Silver mepilex in place. Will continue to monitor. Problem: Trauma/Injury Risk (Adult, Obstetric) Intervention: Manage Environment Patient remains free of fall/injury this shift. Patient calling for assistance when needed. Nonskidstockings on when out of bed. Environmental modifications and fall reduction measures in place. Clutter free environment maintained. Call light within reach at all times. Will continue to monitor. Problem: Pressure Ulcer Risk (Using Alhaji Scale) (Adult, Obstetric) Intervention: Venous Thromboembolism Prevention Pt ambulating with stand-by assist and crutches. SCDs on when in bed. Compression stockings on. Ambulation outside of the room promoted. Will continue to monitor. * Plan of Care - Mel Willett RN - 07/25/2012 4:12 AM EDT Problem: Pain, Acute (Adult, Obstetric) Goal: Acute Pain: Acceptable Pain Control/Comfort Level - Pain, Acute (Adult, Obstetric) Patient resting comfortably at this time. Medicated prn after walking in halls, patient now denies pain. Ice placed on hip per patient request. Self advocacy encouraged. Will continue to monitor. Problem: Skin Integrity Impairment, Risk/Actual (Adult, Obstetric) Goal: Skin Integrity Impairment, Risk/Actual: Skin Integrity/Wound Healing Patient skin intact at this time, no breakdown noted. Patient shifting independently in bed to relieve pressure. Frankie stockings and SCDs in place. Patient tolerating well. Adequate fluid intake ensured, PO intake encouraged. Will continue to monitor. Problem: Trauma/Injury Risk (Adult, Obstetric) Goal: Trauma/Injury Risk: Absence of Trauma/Injury/Falls Patient safety maintained. Side rails x2 raised, call christensen in reach. Patient encouraged to call forassistance. Nonskid socks, crutches and stand by assist used while out of bed. Will continue to monitor. * Discharge Summary - Francheska Buchanan PA - 07/24/2012 1:11 PM EDT Department of Orthopaedic Medicine - Discharge Summary Patient Name: Diamond Gaming Patient Age: 66 y.o. Birthdate: 1945 Admit date: 07/22/2012 Discharge date and time: 07/25/2012 Attending Physician: Nick Ervin MD Discharge Diagnoses (Hospital Problems) and Secondary Diagnoses (Chronic Problems): Active Hospital Problems Diagnoses ??? S/P Left Anterior ARSLAN- 07/22/12 (Dr. Ervin) ??? Postoperative anemia due to acute blood loss Monitored closely, asymptomatic, BP stable, Hgb- 8.1 prior to discharge. Resolved Hospital Problems Diagnoses Date Resolved ??? Nausea and vomiting 07/25/2012 Improved with adjusting pain medications and anti-nausea meds Active Non-Hospital Problems Diagnoses ??? S/P tubal ligation ??? Osteoarthritis of left knee ??? Bleeding diathesis ??? Aortic valve sclerosis Echo 12/25/2011- EF~60-65%, aortic sclerosis without stenosis, stage II diastolic dysfunction ??? Hip pain ??? S/P hip replacement SURGERY DATE: 03/06/2005 SARA STEINER, NICK Angel Surgical Procedure Performed: Right total hip arthroplasty, cementless, [id number] Components Used: [place] Trident 52 shell outer diameter Femoral head 32-4 mm [place] Accolade Femoral stem size 4, 127 deg [...] hand and thumb, wrists, feet, and ankles. Operations/Major Procedures:: 07/22/2012 Surgeons: NICK ERVIN MD - Primary ASHLEY MICHELLE MD - Resident-Surgeon Francesco Procedure: LEFT TOTAL HIP ARTHROPLASTY, ANTERIOR APPROACH Hospital Course:The patient was admitted via Same Day Surgery for the above operation. DVT prophylaxis was: Rivaroxaban. Patient began rehab on POD#1 for 50% partial weight bearing of left leg - no hip precautions/limitations. Crowley was removed on POD#1 and the patient was voiding without difficulty. Wound inspected POD#3 and found to be benign. Patient did have a bowel movement prior to discharge and was passing flatus and taking PO without difficulty. By POD#3 the patient was medically stableand was cleared for safe discharge to home per PT. Of note: The patient did have nausea and vomiting post-op. This improved with add scopolamine patchand adjusting pain medications. She had issues with this also after her last total hip replacement.She also felt better after having a BM. She did have post op anemia, but this stayed stable and shewas asymptomatic. Important Studies and Lab Data: Labs: Lab Results Component Value Date WBC 7.0 07/25/2012 HGB 8.1* 07/25/2012 HCT 24.9* 07/25/2012 MCV 87.7 07/25/2012 Electrolytes Lab Results Component Value Date Sodium 134* 07/25/2012 Potassium 3.9 07/25/2012 Chloride 98 07/25/2012 CO2 30 07/25/2012 Lab Results Component Value Date BUN 10 07/25/2012 CREATININE 0.42* 07/25/2012 Transfusions: No Discharge Conditions/Prognosis: Stable, awake, and alert. Mobilizing with walker/crutches, pain controlled on oral medications. Patient Vitals in the past 8 hrs: BP Temp Pulse Resp SpO2 07/25/12 1310 114/70 mmHg 37.3 ??C (99.1 ??F) 87 16 - 07/25/12 0955 112/67 mmHg 36.9 ??C (98.4 ??F) 81 16 92 % Discharge to: Home with VNA and family support Discharge Medications: Medications prior to admission that will be resumed at discharge: Medication Sig Dispense Refill ??? Lysine 1,000 mg Tab Take 1 tablet by mouth 2 times daily. ??? CYANOCOBALAMIN, VITAMIN B-12, (VITAMIN B-12 ORAL) Take 500 mg by mouth daily. ??? erythromycin base (E-MYCIN) 500 mg tablet Take 1 tablet by mouth 2 times daily. 60 tablet 2 ??? tretinoin (RETIN-A) 0.05 % cream Apply topically nightly. 45 g 1 ??? citalopram (CELEXA) 40 mg tablet Take 40 mg by mouth daily. Indications: Depression New medications prescribed at discharge: Medication Sig Dispense Refill ??? acetaminophen (TYLENOL) 500 mg tablet Take 2 tablets by mouth every 8 hours for 7 days. After 7days, may take Tylenol as needed for mild pain. 42 tablet 0 ??? anastrozole (ARIMIDEX) 1 mg tablet Take 1 tablet by mouth nightly. 90 tablet 3 ??? bisacodyl (DULCOLAX) 5 mg EC tablet Take 2 tablets by mouth daily as needed for Constipation (or if no BM in 48 hours). 10 tablet 0 ??? bisacodyl (DULCOLAX) [address] 1 suppository rectally daily. Use 1 suppository daily until having regular BM's, then use as needed for constipation. 5 suppository 0 ??? cholecalciferol, Vitamin D3, (VITAMIN D) 1,000 unit Tab tablet Take 1 tablet by mouth daily. 60tablet 5 ??? HYDROmorphone (DILAUDID) 2 mg tablet Take 1-2 tablets by mouth every 4 hours as needed for Pain. As pain improves, decrease dose of Dilaudid and space doses further apart. 80 tablet 0 ??? lactobacillus rhamnosus, GG, (PROBIOTIC) 10 billion cell capsule Take 1 capsule by mouth daily. ??? metroNIDAZOLE (METROGEL) 1 % gel Apply topically daily. 45 g ??? multivitamin (THERAGRAN) tablet Take 1 tablet by mouth daily. 30 tablet ??? polyethylene glycol (MIRALAX) 17 gram packet Take 17 g by mouth daily. Continue daily until having regular BM's, then use as needed for constipation or if no BM in 48 hours. 10 each 0 ??? rivaroxaban (XARELTO) 10 mg Tab tablet Take 1 tablet by mouth daily. STOP after last dose morning of August 26. 32 tablet 0 ??? scopolamine (TRANSDERM-SCOP) 1.[address] 1 patch onto the skin. Remove patch after 72 hours- remove on July 28. Only replace if you have continued nausea. 1 patch 0 ??? senna-docusate (PERICOLACE) 8.6-50 mg per tablet Take 1-4 tablets by mouth 2 times daily. 60 tablet 3 Updated Allergies/ADRs: Allergies Allergen Reactions ??? Tetracycline Analogues Anaphylaxis ??? Hymenoptera Allergenic Extract Anaphylaxis Bee Stings Instructions Given to Patient at Discharge: General Instructions Activity: You are ONLY 50% partial weight bearing on your Left leg using a walker or crutches at all times for balance and protection. Wear the FRANKIE hose bilaterally to your lower legs until you are seen in followup. You should remove these at least once per day to inspect your skin. . Anti-coagulation follow up: You have been discharged on Rivaroxaban 10mg daily 35 days from surgery. On August 26 stop the Rivaroxaban after your morning dose. On August 27, begin enteric coated Aspirin 325mg twice a day with food for a total anticoagulation time of 6 weeks. On Augustop the Aspirin after your last dose.. Diet: Resume usual home diet but increase your intake of fluids and fiber while you are on narcotics to prevent constipation.Drink PLENTY of fluids to stay hydrated. Increase the amount of protein inyour diet to promote healing. Add a protein shake to each meal until you are eating normally. Driving: NO driving until you are cleared to do so by your surgeon. You should NOT drive while you are on narcotic pain meds as these can affect your judgement and reaction times. Contact your surgeon with any questions. Medications: 1. The pain medication you are on can cause constipation so increase your intake of fluids and fiber while you are on them. The stool softener, Sennakot, that has been prescribed can also be taken tofacilite a bowel movement. You can take an [id number]-[id number] medication, miralax if needed to combatconstipation. 2. If you need a renewal on your narcotic painmedication, you need to give the Orthopedic clinic enough time to process your request. This can take up to three days, so plan accordingly. 3. Continue to take the tylenol around the clock for the next 7 days. It can be effective in controlling pain along with your other medications. 4. You have been discharged on Dilaudid 2-4 mg every 4 hours as needed for pain. As your pain improves, it is VERY important to decrease your dose of Dilaudid and space your doses further apart. Shower: 1. You can shower but remember your activity limitations and always have a chair available for balance and protection. DO NOT submerge the dressing/incision. 2. DO NOT let water run over the operative dressing. If it gets damp or wet lightly pat the dressing dry. 3. Subq sutures: When this operative dressing (Mepilex) is removed you can let water gently run over the incision. DO NOT submerge the incision. Wound Care: : 1. You do not have any external sutures or fariba in place. Your sutures are internal and will be absorbed over time. 2. Remove your operative dressing 7 days from your surgery (July 29). When it is removed you can leave the incision open to air or cover it with a light dressing 3. If you have lots of drainage when you get home (and it is before July 29), remove this operative dressing and replace it with dry sterile gauze. Continue with daily dressing changes (and as needed) until the drainage stops, then remove the dressing and leave the incision open to air or lightly covered. Misc: Remember that ICE and elevation are very important after surgery to help decrease swelling and control pain. Use ICE for 20-30 minutes at a time and keep your leg elevated as much as possible. FOLLOWUP APPOINTMENTS: X-rays in Radiology 3T prior to follow up appointment: August 18 at 11:45 AM. Follow up appointment with Dr. Ervin in Orthopedics 3C: August 18 at 12:45 PM. Future Appointments and Orders Future Appointments: Provider: Department: Dept Phone: Center: 08/18/2012 12:45 PM Nick Ervin MD [facility] [phone] None Joint Appt Health Question Three C [facility] [phone] None Future Orders Please Complete By Expires Referral to Home Health [[id number] CPT(R)] Process Instructions: Scheduling Instructions: Comments: [facility] PHONE: [phone] FAX: [phone] DOCUMENTATION FOR VNA SERVICES (INCLUDING THOSE PATIENTS WITH MEDICARE COVERAGE REQUIRING HOME VNA SERVICES AND/OR HOSPICE SERVICES) Diamond Gaming Discharge to own home: [address] [place] [phone] (home) No relevant phone numbers on file. In discussion with the attending physician, it is certified that this patient is under their care and that they, or a nurse practitioner, clinical nurse specialist or physician's assistant hall director who is working directly with them, had a face to face encounter that meets the physician face to face encounter requirements with this patient on 07/23/2012 The encounter with the patient was in whole, or in part, for the following medical condition, whichis the primary reason for home health care services: Left total hip arthroplasty- anterior approach In discussion with the provider, it is certified that, based on their findings, the following services are medically necessary for home health services. To provide the following care/treatments with the clinical findings supporting the need for services as follows: Home care orders for Total Hip Replacements: Anterior approach ( PT) Pt will be on RIvaroxaban; therefore there are no blood draws. SQ sutures; therefore there is NO REMOVAL of sutures to be done PT: Assess wound/incision, pain management, medication effectiveness and management, elimination, nutrition PT: Continue PT rehab for balance, endurance, joint mobility, ROM, Strength, Total Hip Arthroplastyexercise and restriction protocol FOR MEDICARE ONLY: (please delete this section if not Medicare) In discussion with the attending physician, it is certified that the clinical findings support thatthis patient is homebound (i.e. absences from home require considerable and taxing effort and are for medical reasons or [facility] services of infrequently or of short duration when for other reasons) All VNA agencies which cover the area of patient's residence have been reviewed, either verbally mathew writing, and patient/family have chosen the home health care agency as noted for home services. Questions: Responses: Agency name and contact information [facility] Patient location post discharge home What services are requested Start date Responsible MD post discharge contact info Provider Contact Information: Primary Care Provider: MARILUZ WATTS MD [phone] Hospital Attending: Nick Ervin MD Department of Orthopaedic Surgery Joints: [phone] Signed: MORENA AWAD 07/25/2012 * Plan of Care - Marily Murphy RN - 07/24/2012 11:38 AM EDT Problem: Pain, Acute (Adult, Obstetric) Intervention: Acute Pain: Related Risk Factors Pt rating pain about 3/10. Pain located left hip. Pt tolerating oral medications as needed. Pt calling for assistance when needed. Will continue to monitor. Problem: Physical Mobility, Impaired (Adult, Obstetric) Intervention: Pressure Reduction Techniques Patients skin remains free of red/sore spots. Pressure reduction measures in place. Patient shifting weights as needed. Pillow supports used. Will continue to monitor. Problem: Skin Integrity Impairment, Risk/Actual (Adult, Obstetric) Intervention: Skin Integrity Impairment, Risk/Actual: Related Risk Factors Incision to left hip is clean, dry, and intact. Silver Mepilex in place. Will continue to monitor. Problem: Trauma/Injury Risk (Adult, Obstetric) Intervention: Manage Environment Patient remains free of fall/injury this shift. Patient calling for assistance when needed. Nonskidstockings on when out of bed. Environmental modifications and fall reduction measures in place. Clutter free environment maintained. Call light within reach at all times. Will continue to monitor. * OR Attestation - Nick Ervin MD - 07/24/2012 11:11 AM EDT Attestation: Case Date: 07/22/2012 I was present and I participated during the entire procedure (does not need to include opening and closing). NICK ERVIN MD 07/24/2012 * Plan of Care - Lisa Bucio RN - 07/24/2012 6:59 AM EDT Problem: Pain, Acute (Adult, Obstetric) Goal: Acute Pain: Acceptable Pain Control/Comfort Level - Pain, Acute (Adult, Obstetric) Pt taking oxycodone 10 mg every four hours as needed for pain and scheduled Tylenol. Pain 3-6/10 atrest and increases with movement. Pt states good relief after medication. Will monitor pain and medicate prn. Problem: Physical Mobility, Impaired (Adult, Obstetric) Goal: Physical Mobility, Impaired: Enhanced Mobility Skills Patient OOB to bathroom with standby assist and walker. 50 % weight bearing allowed on LLE. Pt to call when getting OOB. Problem: Skin Integrity Impairment, Risk/Actual (Adult, Obstetric) Goal: Skin Integrity Impairment, Risk/Actual: Skin Integrity/Wound Healing Dressing to left hip clean, dry and intact. Other skin intact . Pt able to make small changes in bed position independently. Will continue with skin surveillance. Problem: Trauma/Injury Risk (Adult, Obstetric) Goal: Trauma/Injury Risk: Absence of Trauma/Injury/Falls Pt remains free from injuries and falls this shift. Using call light appropriately. Non skid slippers when OOB. Will continue to standby assist when OOB.LISA BUCIO, RN * Initial Assessments - Gina Llanos, PT - 07/23/2012 4:33 PM EDT Physical Therapy Evaluation Total Hip Arthroplasty Patient Profile: Pt. is a 66 y.o. female admitted on 07/22/2012 by Nick Rush MD for L ARSLAN anterior Hueter approach w/ Jesup table. Pt has a cerclage wire for intra-op calcar fracture so limited to 50% WB L LE. PMH: Past Medical History Diagnosis Date ??? Anxiety associated with depression ??? Benign hypermobility syndrome ??? Diverticulosis ??? Degenerative joint disease ??? Breast cancer, stage 2 01/25/2010 ??? Rosacea 03/25/2011 ??? GI bleeding 03/25/2011 PSH: Past Surgical History Procedure Date ??? Created by interface ARTHROSCOPY KNEE,MENISCECTOMY SINGLE WITH SHAVING / LEFT Procedure Date: 06/04/2006 ??? Created by interface COLONOSCOPY (ENDO) Procedure Date: 08/18/2006 ??? Created by interface [id number] Procedure Date: 01/27/2007 ??? Created by interface [...] 03/24/2010 ??? Created by interface SENTINEL NODE INJECTION / RIGHT/BREAST Procedure Date: 03/24/2010 ??? Created by interface TOTAL HIP ARTHROPLASTY / RIGHT/ACCOLADE FEM.STEM/TRIDENT KONSTANTIN. Procedure Date: 03/06/2005 ? ? Exc skin benig >4cm trunk, arm, leg 03/27/2011 EXC BENIGN LESION; INDRA >4.0CM, TRUNK performed by TIRSO CHAUDHARI at [facility] MAIN OR ??? Colonoscopy, diagnostic 02/29/2012 COLONOSCOPY, DIAGNOSTIC performed by RAJAT KUO at [facility] ENDOSCOPY ??? 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 One level home w/ only 1 step to enter. Precautions/Special Considerations: no hip precautions except 50% WB L LE due to intra-op calcar fracture Post-operative course: Pt tearful otherwise managing well. Subjective: Patient states ???I've got my dog boarded x 1 month but I can't afford longer than that.?? Objective: Vitals: SpO2: 95% RA, HR = 110 Most recent Hgb value: 10.5 Pain: Tolerable w/ pain med's; only c/o pain when trying to get OOB by rolling. Functional Mobility: Supine->sit : tried to roll but L hip too painful so instead she wanted to raise HOB and slide legs over and I assisted w/ L LE and then got her a leg pole peeling machine operator helper to help to get back to bed later today. Sit->stand : stood from EOB to walker w/ close supervision Stand->sit : on/off toilet w/ cues and supervision, sat in recliner and able to descend in control w/ strong UE's. Gait: Ambulated using walker 50% WB L LE to BR (catheter had been taken out 4 hrs' prior), then walked around bed to the chair, very tearful and hyperventilating as she was very discouraged about the intra-op fx & need to use a walker or any assistive device. Gait pattern: [id number]-[id number] and cautious about not putting too much wt on L LE; now my other arthritic joints are going to pay like my arms and neck. Pt. to ambulate with nursing staff or mobility aides later and she's agreeable. Today???s Treatment: 1. Initial evaluation Informed Consent: The patient agrees to and understands the PT treatment plan and goals. Education: patient educated on no formal hip precautions w/ anterior surgery but 50% WB on L LE due to fx and verbalizes understanding. Patient status, treatment, and mobility recommendations discussed with nursing staff. Assessment: Pt is POD#1 L ARSLAN anterior Heuter approach w/ Jesup table. Pt. tolerated today???s session fairly well once she was able to cry and explain how discouraged she was about the restriction of 50% WB and need for assistive device. She's worried how long she'll be limited as she's concerned about her dogand granddaughter she cares for while fm @ work. Pt presents with pain, decreased ROM, strength, functional mobility, and gait skills. Pt will benefit from PT to address her functional deficits to restore prior level of function. Ambulation distance: 25 feet Goals: (to be achieved by 12) Goal met? Yes No Pt will be knowledgeable of prescribed exercises. x Pt will be knowledgeable and compliant with 50% WB precautions. 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 x Pt will move sit<>stand (I) to walker. x Pt will ambulate at least 50 feet using walker or crutches 50% WB L LE x Pt will negotiate 1 step using walker/or crutches to enter home safely. x Discharge Recommendations: Patient would benefit from continued therapeutic interventions 2-3 times a week as provided in a home environment to progress toward functional goals. She has a friend that will stay to help her x 2 weeks she states. Physical Therapist recommends: Occupational Therapy consult Plan: Patient to be seen daily for physical therapy to include Therapeutic functional activities, Gait training and Self-care/management. Patient agrees to the plan as stated. Equipment needs: Patient has all necessary equipment. She has a friend that can get her equip. [employer]. Activity plan w/nursing assist or mobility aides: Pt agreeable to cont ex's on her own and walk again later today w/ nrsg or mob staff using walker. Total treatment time: 45 minutes Evaluation Total timed treatment: 0 minutes GINA LLANOS, PT Pager: [phone] * Initial Assessments - Roly Garvin, OT - 07/23/2012 2:45 PM EDT Occupational Therapy Evaluation Patient profile: Diamond Gaming is a 66 y.o. female patient of Nick Rush MD, admitted on 07/22/2012 s/p L ARSLAN-anterior approach. Pt with an intra-op fx. Past Medical History Diagnosis Date ??? Anxiety associated with depression ??? Benign hypermobility syndrome ??? Diverticulosis ??? Degenerative joint disease ??? Breast cancer, stage 2 01/25/2010 ??? Rosacea 03/25/2011 ??? GI bleeding 03/25/2011 R ARSLAN Social History: Patient lives alone. Has supportive kids, watches her granddaughter, has a dog. 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 Walk in shower upstairs DME: all DME from her previous ARSLAN Baseline ADL/Mobility: Independent with ADL???s and IADL???s Precautions/Special Considerations: 50% WB L LE Subjective: i'm not worried about that (self care). I have this small life, and things are just not going right. Objective: Seen today for OT evaluation. Cognitive Status/Behavior: alert, oriented to person, place, and time. Pt very tearful and discouraged about her intraop fx and 50% WB status. She has anxiety (associated with depression) and appearsto be struggling to cope with this post- op change. She loves caring for her granddaughter and her dog, now that she is 50% WB she cannot care for them immediately. Her dog in boarded, she cannot afford to have him boarded for long. Communication: WFL Vision & Perception: WFL Range of motion, strength, coordination: Hand dominance: n/a Bilateral UEs are within functional limitations Sensation: WFL Activities of Daily Living: Self-feeding: WFL with set up Hygiene grooming: able to stand at sink and wash hands using FWW. Upper and lower body dressing and bathing: ?? Max assist 2/2 pain ?? She has adaptive equipment, needs to dig it out. Toileting: Toilet Transfer: CTGA Toilet Hygiene: Independent Functional Mobility: Supine to sit: Min assist with HOB raised Sit to stand: CTGA Ambulation: CTGA with FWW around the room and into the bathroom. Did well with 50%WB Stand to sit: CTGA Sit to supine: n/a Balance: good sitting and standing. IADL???s: Assistance available to patient. Endurance: Information taken from last recorded vitals in flowsheet. Last value Range last 8 hrs Heart Rate Heart Rate: 91 Heart Rate: [88-91] Blood Pressure BP: 108/65 mmHg BP: (108-109)/(63-65) SpO2 SpO2: 95 % SpO2: [95 %-98 %] Pain: Medication controlled. Skin: Not assessed, incision c/d/i Informed Consent: The patient agrees to and understands the OT treatment plan and goals. Patient status, treatment, and mobility recommendations discussed with nursing. Assessment: Pt has been seen by OT for evaluation, and she presents with impaired ability to perform daily activities and functional mobility secondary to ARSLAN-50% WB. Pt tolerated today's evaluation, she was quite tearful regarding 50% WB. Pt would benefit from ongoing OT services to maximize functional independence while hospitalized. Recommendations: Equipment needs at discharge: Patient has all necessary equipment Discharge Recommendations: Patient would benefit from continued therapeutic interventions 2-3 timesa week as provided in a home environment to progress toward functional goals. Other Recommendations: n/a Goals: To be achieved by 07/30. Pt will demonstrate independence with precautions/restrictions during ADLs. Pt will perform sink level ADLs with supervision only. Pt will dress self independently using adaptive technique/equipment as needed. Pt will ambulate within room for ADLs with assistive device as needed. Plan: Pt to be seen 3-5xs per week for therapy including Transfers, Assistive device/technique, Adaptive equipment training, ADL, Safety, Functional Mobility, Activity pacing/Energy conservation, Home Management, Balance, Recommendations, Family training and Discharge planning. Eval date: 07/23/2012 Total time spent with patient: 40 minutes Total timed interventions: 0 minutes Pager: [phone] ROLY GARVIN OT 07/23/2012 Occupational Therapy Rehabilitation Department * Plan of Care - Morgan Snider RN - 07/23/2012 12:59 AM EDT Problem: Pain, Acute (Adult, Obstetric) Intervention: Acute Pain: Signs and Symptoms Pain relieved by Oxycodone 5mg, scheduled tylenol. Problem: Physical Mobility, Impaired (Adult, Obstetric) Intervention: Venous Thromboembolism Prevention SCD's on, using IS appropriately, crowley patent. Patient repositions with minimal assist. Problem: Skin Integrity Impairment, Risk/Actual (Adult, Obstetric) Intervention: Pressure Reduction Devices Patient repositions self, skin intact, tolerating regular diet, IV infusing per order. Problem: Trauma/Injury Risk (Adult, Obstetric) Intervention: Manage Environment Patient resting in bed, appropriate, oriented, demonstrates use of call light. * Miscellaneous - Provider, Scanning - 07/22/2012 4:33 PM EDT * Op Note - Nick Ervin MD - 07/22/2012 12:00 AM EDT Surgery Start Time: 1617 Surgery Stop Time: 1753 Date: Jul 2211-11 Surgeon: Nick Ervin MD Oil Distributor: Ashley Michelle MD Anesthesia: GET Pre-operative diagnosis: Left hip osteoarthritis Body mass index is 35.35 kg/(m^2). Post-operative diagnosis: Same Surgical Procedure Performed: Injection left hip with 10 cc marcaine 0.25% with epi, into skin and subcutaneous tissues (CPT [id number]) left total hip arthroplasty, anterior Hueter approach with Jesup table (CPT code 93484) Left hip intraoperative radiologic examination (CPT code 94797) Amicar infusion (5 g IV load, then 1g/hr x 3 hrs) Components Used: [place] Accolade stem, size 4, 127 degrees Trident PSLcup, 52 mm, solid 32 mm ID, alumina 32-4 mm alumina head Bearing surface: ceramic on ceramic Estimated Blood Loss: 1500 cc Complications: High EBL Type 1 calcar fracture Weightbearin% weightbearing as tolerated Anticoagulation: ASA x 1 month Special orders: No dislocation precautions, no abduction pillow. Please use SCDs, have TEDs on both legs Technique: Patient was taken to the operating room and a GET anesthetic was induced. According to AAOS recommendations, prophylactic antibiotics were administered within one hour of incision time. A timeout wasperformed. Patient was positioned supine on the Jesup table, both feet and ankles were padded and then carefully placed in the traction boots. The perineal post was also padded with gelfoam. The patient was then prepped and draped in the usual sterile manner using chlorhexidine scrub, alcohol and finally DuraPrep. Hip Exposure and capsulotomy: We marked out the incision beginning about 1.5 cm lateral of the anterior superior iliac spine, proceeding distally about 11 cm, diverging at about a 20?? angle away laterally from the axis of the femur. Incision was made through skin, the subcutaneous tensor fascia hazel fascia was identified and split in line. The anterior extent of this fascia was held into Peggy clamps. Using blunt dissection, we mobilized the tensor fascia muscle, reflected it posteriorly, and retracted it with a Malaika retractor. We were able to identify the perforating leashes of vessels at the base of the wound deep to the floor of the TF fascia, these were carefully coagulated. This allowed us then to proceed deeper and to reflect the inferior extent of the TFL fascia anteriorly. This exposed the anterior hip capsule, adherent portions of the reflected head of the rectus femoris werethen mobilized medially using a Valderrama elevator. A Cobra retractor was placed after palpation of the greater trochanter, the first retractor was placed superior over the femoral neck, a second elevatorwas placed inferiorly beneath the femoral neck. Blunt finger dissection along the medial aspect of the femur was used to identify the interval. A sharp Hohmann retractor was then placed anteriorly, and the interval between the reflected and long heads of rectus femoris. We then incised the fascia above the reflected head, used a Valderrama to from the capsule, and placed an anterior retractoron the anterior acetabular rim. We the performed a straight capsulotomy using a Bovie cautery, parallel to the femoral neck, the second limb was made perpendicular. The inferior cobra retractor was now placed intra-articular, again one above and one below the femoral neck. Medial dissection continued distally to the level of the lesser trochanter. The superior capsula was excised and the second cobra was now moved intracapsular, just above the femoral neck. Dislocation and femoral neck cut: The femoral neck was cut with a reciprocating saw. A corkscrew onpower was then inserted into the femoral head. Three cranks of gross traction were placed on the operated leg, with 60 degrees external rotation, and this allowed distraction of the head from the socket. It also allowed easy removal of the femoral head. Acetabular exposure and preparation: Sharp curved retractors were placed at the 9 o'clock and 4 o'clock position of the acetabulum. The femur was translated lateral and posterior to the acetabulum. This allowed excellent acetabular exposure, the labrum was then resected and reaming began at 50 mm. We proceeded incrementally up to 52 mm at which time we had circumferential bleeding bone. An acetabular component was placed and found to have excellent rim fit. No screws were placed. The component was then checked under fluoroscopic control, aiming for a lateral abduction of about 40??, and anteversion of about 20??. A liner was placed and impacted according to brand sales manager's instructions. Any impinging osteophytes were removed. The socket was then thoroughly irrigated. Attention then turned to the femur. Femoral exposure: After removal of acetabular retractors, the traction was released and the femur was externally rotated to about 100??. The lateral capsule was resected, the posterior quadrant of the femur was also released, allowing forward mobilization of the femur. A Major retractor was then placed beneath the greater trochanter. A lateral and superior force was applied. This allowed the greater trochanter to disengage from the posterior column of the acetabulum and then to elevate the femur anteriorly. While holding the femur in this position, the positioning arm of the operated leg was dropped to full extension and maximal allowable adduction. No HANA hook was used. The femur was then held elevated, a femoral elevator was placed under the calcar and this was used to displace the femur superiorly and laterally. At the same time, the assistant hall director leaned against the thigh to optimize femoral adduction. At this point, special attention was turned to the soft tissues laterally to the resected femoral neck. A rongeur was used to remove any remnant of the femoral neck and we then proceeded to use a Bovie to reflect circumferentially the soft tissues around the resected neck. Finally, all remaining tissues in the piriformis fossa were resected using cautery, giving us a clear view of the entire resected neck footprint, as well as the piriformis fossa and the medialmost aspect of the greater trochanter. Femoral preparation: The flexible T-handle and then the first broach was used to enter the femoral metaphysis in line with the posterior femoral cortex, at about 10?? of anteversion. The broach was used to enlarge the femoral opening, then broaching continued, applying a force against the greater trochanter to ascertain that the broach remained has fully lateral as possible with every pass. We proceeded with broaching incrementally until a size 4 was fully seated. We then used the calcar planerto resect any remaining calcar that extended proximal to the stem's final resting position. A trialneck and standard femoral head were placed, the Major retractor was disengaged and fully relaxed.The operated hip was then brought back into neutral position by bringing the leg out of adduction and extension. After neutral position was reestablished, about 90?? of external rotation were placed on the operated leg followed by 2 cranks of gross traction. The acetabulum was irrigated and clearedof all debris, the hip was then internally rotated to 30?? internal rotation. This allowed easy redu ction of the hip. Full rotational range of motion was tested, confirming that there was no impingement of the femoral neck against the acetabular component either anteriorly or posteriorly. Fluoroscopic imaging was used to confirm proper offset and leg length as well as femoral broach position. At this point, 2 cranks of gross traction were placed on the operated leg, again the hip was externallyrotated to about 90?? external rotation allowing easy dislocation. All traction was released, and the proximal femur was elevated and pulled laterally. The position of adduction and hip extension wasreestablished by moving the positioning arm on the operated leg and then externally rotating the femur to about 90??. Again, the femur was lateralized and lifted, the Major retractor was then engaged to support this position. All trial implants were removed, the femoral canal was gently irrigated, the actual femoral implant was then inserted with gentle taps from a mallet. At this point it was noted that there was a medial split in the calcar, only about 2 cm in length and ending before the le sser trochanter. The stem was removed at this point. The leg was brought up into full extension, a cerclage cable was placed from the Synthes system. After this the stem was reinserted and found to have a stable endpoint, and the femoral head was then impacted on the clean trunion. Again, the proximal femur was lowered, the Major retractor was removed and the leg was brought back to a neutral position, 2 cranks of traction along with 30?? of external rotation were followed by internal rotation to 20?? and release of traction which allowed reduction of the hip joint. Closure: After thorough irrigation, the tensor fascia hazel muscle was allowed to come back to its anatomic position and irrigated, and a running Vicryl #0 suture was used to close the fascia. Fat wasclosed with inverted Vicryl zero, more superficially with Vicryl 2-0 and then Monocryl and Dermabond were used to close skin, and a dry sterile dressing were applied. All counts were correct. Patient was carefully removed from the traction boots and transferred back to the hospital bed. No abduction pillow was placed. The patient returned to the recovery room in stable condition. Implant Information: Implant Name Type Inv. Item Serial No. Health Science Instructor Lot No. LRB No. Used Action SHELL,ACETABULAR,TRIDENT,PSL,S ([id number]) (AUTOREQ) - [id number] IMPLANTS SHELL,ACETABULAR,TRIDENT,PSL,S ([id number]) (AUTOREQ) [employer] - [id number] Left 1 Implanted INSERT,TRIDENT,ALUMINA,0,DEG,3 ([id number]) (AUTOREQ) - [id number] IMPLANTS INSERT,TRIDENT,ALUMINA,0,DEG,3 ([id number]) (AUTOREQ) [employer] - [id number] Left 1 Implanted STEM,FEM,ACCOLADE,127,DEG,NECK ([id number]) (AUTOREQ) - [id number] IMPLANTS STEM,FEM,ACCOLADE,127,DEG,NECK ([id number]) (AUTOREQ) [employer] - [id number] Left 1 Implanted CABLE,SS,CRMP,[id number],STR ([id number]) - [id number] IMPLANTS CABLE,SS,CRMP,[id number],STR ([id number]) [facility] - [id number] Left 1 Implanted HEAD,FEM,ALUMINA,V40,-4X32MM ([id number]) (AUTOREQ) - [id number] IMPLANTS HEAD,FEM,ALUMINA,V40,-4X32MM ([id number]) (AUTOREQ) [employer] - [id number] Left 1 Implanted documented in this encounter Plan of Treatment Upcoming Encounters Date Type Department Care Team (Late st Contact Info) Description 11/16/2024 1:00 PM EST Office [place] [phone] Paula Harris PA [facility] [place] [address] 01/26/2025 9:50 AM EDT Appointment Mammography/[place] [phone] Joan Deutsch APRN [facility] [address] 01/26/2025 10:50 AM EDT Office [place] [phone] Joan Deutsch CLINICAL ACCOUNT SPECIALIST [facility] [place] [address] Pending Results Name Type Priority Associated Diagnoses Date /Time XR Fluoro OR c-arm storage only Imaging Routine 07/22/2012 5:28 PM EDT Scheduled Orders Name Type Priority Associated Diagnoses Orde r Schedule XR Fluoro OR c-arm storage only Imaging Routine Once PRN (for Ra diant use) for 1 Occurrences starting 07/22/2012 until 07/22/2012 documented as of this encounter Procedures Procedure Name Priority Date/Time Associated Diagnosis Comments IMPLANTABLE DEVICES SCAN 07/27/2012 12:24 PM EDT HEMOGLOBIN AND HEMATOCRIT, BLOOD Routine 07/25/2012 11:59 AM EDT DIFFERENTIAL, AUTOMATED Routine 07/25/2012 4:29 AM EDT CBC (WITH DIFF) Routine 07/25/2012 4:29 AM EDT BASIC METABOLIC PANEL Routine 07/25/2012 4:29 AM EDT DIFFERENTIAL, AUTOMATED Routine 07/24/2012 3:53 AM EDT CBC (WITH DIFF) Routine 07/24/2012 3:53 AM EDT BASIC METABOLIC PANEL Routine 07/24/2012 3:53 AM EDT DIFFERENTIAL, AUTOMATED Routine 07/23/2012 4:36 AM EDT CBC (WITH DIFF) Routine 07/23/2012 4:36 AM EDT BASIC METABOLIC PANEL Routine 07/23/2012 4:36 AM EDT XR PELVIS Routine 07/22/2012 7:00 PM EDT DIFFERENTIAL, AUTOMATED Routine 07/22/2012 6:30 PM EDT CBC (WITH DIFF) Routine 07/22/2012 6:30 PM EDT SURGICAL PATHOLOGY REPORT Routine 07/22/2012 6:21 PM EDT SPECIMEN TO PATHOLOGY Routine 07/22/2012 4:18 PM EDT MODIFIER TRIDENT PSL ACETABULUM NINA 07/22/2012 3:34 PM EDT OA MODIFIER ACCOLADE FEMORAL STEM NINA 07/22/2012 3:34 PM EDT OA TOTAL HIP ARTHROPLASTY, ANTERIOR APPROACH (WRVU 19.6) 07/22/2012 3:34 PM EDT OA documented in this encounter Results * SCAN DOC: IMPLANTABLE DEVICES (07/27/2012 12:24 PM EDT) Narrative 07/27/2012 12:24 PM EDT Procedure Note Provider, Scanning - 07/27/2012 12:24 PM EDT Scanning Provider MEDIA MGR SCAN EXT O RDR/RSLT * (ABNORMAL) Hemoglobin and Hematocrit, blood (07/25/2012 11:59 AM EDT) Hemoglobin 8.1(L) 11.2 - 15.7 gm/dL CERNER MILLENNIUM Hematocrit 24.9(L) 34.0 - 45.0 % CERNER MILLENNIUM Blood specimen (specimen) 07/25/2012 11:59 AM EDT 07/25/2012 12:10 PM EDT Narrative Resulting Agency Comment Spec In Lab Nick Ervin MD HEMATOLOGY ORDERABLE S CERNER MILLENNIUM * (ABNORMAL) DIFFERENTIAL, AUTOMATED (07/25/2012 4:29 AM EDT) Neutrophil % 71.1(H) 34.0 - 71.0 % CERNER MILLENNIUM Neutrophil Absolute 4.96 1.50 - 6.30 x10(3)/mc L CERNER MILLENNIUM Lymph % 16.5(L) 19.0 - 53.0 % CERNER MILLENNIUM Lymphocytes Abs 1.2 1.0 - 3.6 x10(3)/mc L CERNER MILLENNIUM Monocyte % 11.3 4.0 - 13.0 % CERNER MILLENNIUM Monocyte Abs 0.8 0.2 - 1.0 x10(3)/mc L CERNER MILLENNIUM Eos % 0.7 0.0 - 7.0 % CERNER MILLENNIUM Eosinophils Abs 0.0 0.0 - 0.5 x10(3)/mc L CERNER MILLENNIUM Basophil % 0.3 0.0 - 2.0 % CERNER MILLENNIUM Baso Absolute 0.0 0.0 - 0.2 x10(3)/mc L CERNER MILLENNIUM Immature Gran % 0.10 0.00 - 0.66 % CERNER MILLENNIUM Comment: Immature granulocytes(IG's)percentage and absolute count will include metamyelocytes, myelocytes, and promyelocytes. Blood smears from CBCs yielding IG's will be scanned manually for concordance. If this scan disagrees with the automated IG or if promyelocytes are noted, a manual differential will be performed. Immature Gran Absolute 0.01 0.00 - 0.05 x10(3)/mc L CERNER MILLENNIUM Blood specimen (specimen) 07/25/2012 4:29 AM EDT 07/25/2012 4:48 AM EDT Nick Ervin MD HEMATOLOGY ORDERABLE S CERNER MILLENNIUM * (ABNORMAL) Basic Metabolic Panel (non-fasting) (07/25/2012 4:29 AM EDT) Glucose 123 60 - 199 mg/dL CERNER MILLENNIUM Comment:Diabetes: >=200 mg/d L plus symptoms Blood Urea Nitrogen 10 8 - 18 mg/dL CERNER MILLENNIUM Creatinine 0.42(L) 0.70 - 1.20 mg/dL CERNER MILLENNIUM Comment: Please note that the pediatric reference intervals supplied above were not validated at [facility]. Results from pediatric patients should be interpreted in conjunction to the patient's age, height and muscle mass. Sodium 134(L) 135 - 145 mmol/L CERNER MILLENNIUM Potassium 3.9 3.5 - 5.0 mmol/L CERNER MILLENNIUM Comment: Please note: ??Patients with WBC >100,000 may have falsely elevated Potassium levels. ??For accurate Potassium quantification in these patients send serum separator tube (gold top) for subsequent determinations. ??Contact the Clinical Chemistry Laboratory if there are any questions. Chloride 98 98 - 107 mmol/L CERNER MILLENNIUM Carbon Dioxide 30 22 - 31 mmol/L CERNER MILLENNIUM Anion Gap 6 5 - 15 mmol/L CERNER MILLENNIUM Calcium 8.3(L) 8.5 - 10.5 mg/dL CERNER MILLENNIUM Est [...] J Am Soc Nephrol;6:1963-72. Blood specimen (specimen) 07/25/2012 4:29 AM EDT 07/25/2012 4:48 AM EDT Narrative Resulting Agency Comment Spec In Lab Nick Ervin MD CHEMISTRY ORDERABLES VALERIE TOPETE * (ABNORMAL) CBC (with Diff) (07/25/2012 4:29 AM EDT) White Blood Cell 7.0 4.0 - 10.0 x10(3)/mc L VALERIE MILLIZABELIUM Red Blood Cell 2.77(L) 3.93 - 5.22 x10(6)/mc L CERNER MILLENNIUM Hemoglobin 7.8(L) 11.2 - 15.7 gm/dL CERNER MILLENNIUM Hematocrit 24.3(L) 34.0 - 45.0 % CERNER MILLENNIUM Mean Cell Volume 87.7 79.0 - 94.0 fL CERNER MILLENNIUM Mean Cell Hemoglobin 28.2 26.6 - 32.2 pg CERNER MILLENNIUM Mean Cell Hemoglobin Concentration 32.1 32.0 - 36.5 gm/dL CERNER MILLENNIUM Platelet 163 145 - 370 x10(3)/mc L CERNER MILLENNIUM RDW Standard Deviation 43.0 35.0 - 46.0 fL CERNER MILLENNIUM RDW coefficient of variation 13.2 10.9 - 14.4 % CERNER MILLENNIUM Mean Platelet Volume 10.8 9.0 - 12.0 fL CERNER MILLENNIUM Blood specimen (specimen) 07/25/2012 4:29 AM EDT 07/25/2012 4:48 AM EDT Narrative Resulting Agency Comment Spec In Lab Nick Ervin MD HEMATOLOGY ORDERABLE S CERNER MILLENNIUM * (ABNORMAL) DIFFERENTIAL, AUTOMATED (07/24/2012 3:53 AM EDT) Neutrophil % 74.5(H) 34.0 - 71.0 % CERNER MILLENNIUM Neutrophil Absolute 5.54 1.50 - 6.30 x10(3)/mc L CERNER MILLENNIUM Lymph % 14.5(L) 19.0 - 53.0 % CERNER MILLENNIUM Lymphocytes Abs 1.1 1.0 - 3.6 x10(3)/mc L CERNER MILLENNIUM Monocyte % 10.6 4.0 - 13.0 % CERNER MILLENNIUM Monocyte Abs 0.8 0.2 - 1.0 x10(3)/mc L CERNER MILLENNIUM Eos % 0.3 0.0 - 7.0 % CERNER MILLENNIUM Eosinophils Abs 0.0 0.0 - 0.5 x10(3)/mc L CERNER MILLENNIUM Basophil % 0.1 0.0 - 2.0 % CERNER MILLENNIUM Baso Absolute 0.0 0.0 - 0.2 x10(3)/mc L CERNER MILLENNIUM Immature Gran % 0.00 0.00 - 0.66 % CERNER MILLENNIUM Comment: Immature granulocytes(IG's)percentage and absolute count will include metamyelocytes, myelocytes, and promyelocytes. Blood smears from CBCs yielding IG's will be scanned manually for concordance. If this scan disagrees with the automated IG or if promyelocytes are noted, a manual differential will be performed. Immature Gran Absolute 0.00 0.00 - 0.05 x10(3)/mc L CERNER MILLENNIUM Blood specimen (specimen) 07/24/2012 3:53 AM EDT 07/24/2012 4:00 AM EDT Nick Ervin MD HEMATOLOGY ORDERABLE S [facility] [employer] * (ABNORMAL) Basic Metabolic Panel (non-fasting) (07/24/2012 3:53 AM EDT) [facility] Glucose 127 60 - 199 mg/dL CERNER MILLENNIUM Comment:Diabetes: >=200 mg/d L plus symptoms Blood Urea Nitrogen 16 8 - 18 mg/dL CERNER MILLENNIUM Creatinine 0.58(L) 0.70 - 1.20 mg/dL CERNER MILLENNIUM Comment: Please note that the pediatric reference intervals supplied above were not validated at [facility]. Results from pediatric patients should be interpreted in conjunction to the patient's age, height and muscle mass. Sodium 135 135 - 145 mmol/L CERNER MILLENNIUM Potassium 4.2 3.5 - 5.0 mmol/L CERNER MILLENNIUM Comment: Please note: ??Patients with WBC >100,000 may have falsely elevated Potassium levels. ??For accurate Potassium quantification in these patients send serum separator tube (gold top) for subsequent determinations. ??Contact the Clinical Chemistry Laboratory if there are any questions. Chloride 100 98 - 107 mmol/L CERNER MILLENNIUM Carbon Dioxide 27 22 - 31 mmol/L CERNER MILLENNIUM Anion Gap 8 5 - 15 mmol/L CERNER MILLENNIUM Calcium 8.7 8.5 - 10.5 mg/dL CERNER MILLENNIUM Est Glomerular Filtration Rate >60 >=60 [facility] Comment: The National Kidney Disease Education Program [...] J Am Soc Nephrol;6:1963-72. Blood specimen (specimen) 07/24/2012 3:53 AM EDT 07/24/2012 4:00 AM EDT Narrative Resulting Agency Comment Spec In Lab Nick Ervin MD CHEMISTRY ORDERABLES CERNER MILLENNIUM * (ABNORMAL) CBC (with Diff) (07/24/2012 3:53 AM EDT) White Blood Cell 7.4 4.0 - 10.0 x10(3)/mc L CERNER MILLENNIUM Red Blood Cell 3.01(L) 3.93 - 5.22 x10(6)/mc L CERNER MILLENNIUM Hemoglobin 8.7(L) 11.2 - 15.7 gm/dL CERNER MILLENNIUM Comment: Called by: KIRILL, Read back by: Lisa Bucio, Date-Time: 07-24-12. Hematocrit 26.0(L) 34.0 - 45.0 % CERNER MILLENNIUM Mean Cell Volume 86.4 79.0 - 94.0 fL CERNER MILLENNIUM Mean Cell Hemoglobin 28.9 26.6 - 32.2 pg CERNER MILLENNIUM Mean Cell Hemoglobin Concentration 33.5 32.0 - 36.5 gm/dL CERNER MILLENNIUM Platelet 169 145 - 370 x10(3)/mc L CERNER MILLENNIUM RDW Standard Deviation 42.6 35.0 - 46.0 fL CERNER MILLENNIUM RDW coefficient of variation 13.5 10.9 - 14.4 % CERNER MILLENNIUM Mean Platelet Volume 10.4 9.0 - 12.0 fL CERNER MILLENNIUM Blood specimen (specimen) 07/24/2012 3:53 AM EDT 07/24/2012 4:00 AM EDT Narrative Resulting Agency Comment Spec In Lab Nick Ervin MD HEMATOLOGY ORDERABLE S CERNER MILLENNIUM * (ABNORMAL) DIFFERENTIAL, AUTOMATED (07/23/2012 4:36 AM EDT) Neutrophil % 86.6(H) 34.0 - 71.0 % CERNER MILLENNIUM Neutrophil Absolute 12.66(H) 1.50 - 6.30 x10(3)/mc L CERNER MILLENNIUM Lymph % 5.8(L) 19.0 - 53.0 % CERNER MILLENNIUM Lymphocytes Abs 0.8(L) 1.0 - 3.6 x10(3)/mc L CERNER MILLENNIUM Monocyte % 7.2 4.0 - 13.0 % CERNER MILLENNIUM Monocyte Abs 1.0 0.2 - 1.0 x10(3)/mc L CERNER MILLENNIUM Eos % 0.0 0.0 - 7.0 % CERNER MILLENNIUM Eosinophils Abs 0.0 0.0 - 0.5 x10(3)/mc L CERNER MILLENNIUM Basophil % 0.1 0.0 - 2.0 % CERNER MILLENNIUM Baso Absolute 0.0 0.0 - 0.2 x10(3)/mc L CERNER MILLENNIUM Immature Gran % 0.30 0.00 - 0.66 % CERNER MILLENNIUM Comment: Immature granulocytes(IG's)percentage and absolute count will include metamyelocytes, myelocytes, and promyelocytes. Blood smears from CBCs yielding IG's will be scanned manually for concordance. If this scan disagrees with the automated IG or if promyelocytes are noted, a manual differential will be performed. Immature Gran Absolute 0.05 0.00 - 0.05 x10(3)/mc L CERNER MILLENNIUM Blood specimen (specimen) 07/23/2012 4:36 AM EDT 07/23/2012 4:46 AM EDT Nick Ervin MD HEMATOLOGY ORDERABLE S [facility] * (ABNORMAL) Basic Metabolic Panel (non-fasting) (07/23/2012 4:36 AM EDT) [facility] Glucose 148 60 - 199 mg/dL CERNER MILLENNIUM Comment:Diabetes: >=200 mg/d L plus symptoms Blood Urea Nitrogen 14 8 - 18 mg/dL CERNER MILLENNIUM Creatinine 0.51(L) 0.70 - 1.20 mg/dL CERNER MILLENNIUM Comment: Please note that the pediatric reference intervals supplied above were not validated at [facility]. Results from pediatric patients should be interpreted in conjunction to the patient's age, height and muscle mass. Sodium 133(L) 135 - 145 mmol/L CERNER MILLENNIUM Potassium 4.9 3.5 - 5.0 mmol/L CERNER MILLENNIUM Comment: Please note: ??Patients with WBC >100,000 may have falsely elevated Potassium levels. ??For accurate Potassium quantification in these patients send serum separator tube (gold top) for subsequent determinations. ??Contact the Clinical Chemistry Laboratory if there are any questions. Chloride 102 98 - 107 mmol/L CERNER MILLENNIUM Carbon Dioxide 22 22 - 31 mmol/L CERNER MILLENNIUM Anion Gap 9 5 - 15 mmol/L CERNER MILLENNIUM Calcium 8.3(L) 8.5 - 10.5 mg/dL CERNER MILLENNIUM Est [...] kidney disease. References: http://nkdep.nih.gov/resources/NKDEP_Suggestn4Labs_0606_508.pdf http://www.kidney.org/professionals/kls/pdf/faq_gfr.pdf Alex K, aKmilla NA, Ladi AK, Fan TS, Peyton AD, Luis DOLORES. Relative performance of the MDRD and CKD-EPI equations for estimating glomerular filtration rate among patients with varied clinical presentations. Clin J Am Soc Nephrol;6:1963-72. Blood specimen (specimen) 07/23/2012 4:36 AM EDT 07/23/2012 4:46 AM EDT Narrative Resulting Agency Comment Spec In Lab Nick Ervin MD CHEMISTRY ORDERABLES Performing Organization Address City/[facility]/ZIP Co de Phone Number CERRIGO MILLENNIUM * (ABNORMAL) CBC (with Diff) (07/23/2012 4:36 AM EDT) White Blood Cell 14.6(H) 4.0 - 10.0 x10(3)/mc L CERNER MILLENNIUM Red Blood Cell 3.72(L) 3.93 - 5.22 x10(6)/mc L CERNER MILLENNIUM Hemoglobin 10.7(L) 11.2 - 15.7 gm/dL CERNER MILLENNIUM Hematocrit 31.9(L) 34.0 - 45.0 % CERNER MILLENNIUM Mean Cell Volume 85.8 79.0 - 94.0 fL CERNER MILLENNIUM Mean Cell Hemoglobin 28.8 26.6 - 32.2 pg CERNER MILLENNIUM Mean Cell Hemoglobin Concentration 33.5 32.0 - 36.5 gm/dL CERNER MILLENNIUM Platelet 194 145 - 370 x10(3)/mc L CERNER MILLENNIUM RDW Standard Deviation 41.5 35.0 - 46.0 fL CERNER MILLENNIUM RDW coefficient of variation 13.3 10.9 - 14.4 % CERNER MILLENNIUM Mean Platelet Volume 11.2 9.0 - 12.0 fL CERNER MILLENNIUM Blood specimen (specimen) 07/23/2012 4:36 AM EDT 07/23/2012 4:46 AM EDT Narrative Resulting Agency Comment Spec In Lab Nick Ervin MD HEMATOLOGY ORDERABLE S Performing Organization Address City/[facility]/ZIP Co de Phone Number VALERIE MAYERIUM * XR pelvis 1 or 2 views (07/22/2012 7:00 PM EDT) Anatomical Region Laterality Modality Pelvis N/A Radiographic Crystal ging 07/22/2012 7:00 PM EDT Narrative 07/23/2012 1:09 PM EDT Examination PELVIS 1 OR 2 VIEWS/XPORT Clinical History s/p ARSLAN Comparison 01/25/2012 ?? Technique Portable AP radiograph of the pelvis including both hips as well as lateral view of the left hip. Findings Interval left total hip arthroplasty and proximal femoral cerclage wire. ??The components appear well-seated. ??No apparent complication. ??No change in appearance of the post arthroplasty right hip. Procedure Note Fariha Sharpe MD - 07/23/2012 Examination PELVIS 1 OR 2 VIEWS/XPORT Clinical History s/p ARSLAN Comparison 01/25/2012 Technique Portable AP radiograph of the pelvis including both hips as well aslateral view of the left hip. Findings Interval left total hip arthroplasty and proximal femoral cerclage wire.The components appear well-seated. No apparent complication. No change in appearance of the post arthroplasty right hip. Nick Ervin MD IMG DX ORDERABLES * (ABNORMAL) DIFFERENTIAL, AUTOMATED (07/22/2012 6:30 PM EDT) Neutrophil % 82.3(H) 34.0 - 71.0 % CERNER MILLENNIUM Neutrophil Absolute 13.45(H) 1.50 - 6.30 x10(3)/mc L CERNER MILLENNIUM Lymph % 12.5(L) 19.0 - 53.0 % CERNER MILLENNIUM Lymphocytes Abs 2.0 1.0 - 3.6 x10(3)/mc L CERNER MILLENNIUM Monocyte % 3.4(L) 4.0 - 13.0 % CERNER MILLENNIUM Monocyte Abs 0.6 0.2 - 1.0 x10(3)/mc L CERNER MILLENNIUM Eos % 0.6 0.0 - 7.0 % CERNER MILLENNIUM Eosinophils Abs 0.1 0.0 - 0.5 x10(3)/mc L CERNER MILLENNIUM Basophil % 0.2 0.0 - 2.0 % CERNER MILLENNIUM Baso Absolute 0.0 0.0 - 0.2 x10(3)/mc L CERNER MILLENNIUM Immature Gran % 1.00(H) 0.00 - 0.66 % CERNER MILLENNIUM Comment: Immature granulocytes(IG's)percentage and absolute count will include metamyelocytes, myelocytes, and promyelocytes. Blood smears from CBCs yielding IG's will be scanned manually for concordance. If this scan disagrees with the automated IG or if promyelocytes are noted, a manual differential will be performed. Immature Gran Absolute 0.17(H) 0.00 - 0.05 x10(3)/mc L CERNER MILLENNIUM Blood specimen (specimen) 07/22/2012 6:30 PM EDT 07/22/2012 6:36 PM EDT Nick Ervin MD [facility]EMATOLOGY ORDERABLE S [facility] MANISHAENNIUM * (ABNORMAL) CBC (with Diff) (07/22/2012 6:30 PM EDT) White Blood Cell 16.4(H) 4.0 - 10.0 x10(3)/mc L CERNER MILLENNIUM Red Blood Cell 3.68(L) 3.93 - 5.22 x10(6)/mc L CERNER MILLENNIUM Hemoglobin 10.5(L) 11.2 - 15.7 gm/dL CERNER MILLENNIUM Hematocrit 32.1(L) 34.0 - 45.0 % CERNER MILLENNIUM Mean Cell Volume 87.2 79.0 - 94.0 fL CERNER MILLENNIUM Mean Cell Hemoglobin 28.5 26.6 - 32.2 pg CERNER MILLENNIUM Mean Cell Hemoglobin Concentration 32.7 32.0 - 36.5 gm/dL CERNER MILLENNIUM Platelet 209 145 - 370 x10(3)/mc L CERNER MILLENNIUM RDW Standard Deviation 42.0 35.0 - 46.0 fL CERNER MILLENNIUM RDW coefficient of variation 13.0 10.9 - 14.4 % CERNER MILLENNIUM Mean Platelet Volume 10.8 9.0 - 12.0 fL CERNER MILLENNIUM Blood specimen (specimen) 07/22/2012 6:30 PM EDT 07/22/2012 6:36 PM EDT Narrative Resulting Agency Comment Spec In Lab Nick Ervin MD HEMATOLOGY ORDERABLE S VALERIE TOPETE * SURGICAL PATHOLOGY REPORT (07/22/2012 6:21 PM EDT) Surgical Pathology Report ? [facility] ? Provider: ?? NICK ERVIN ? Pt. Name: ?? DIAMOND GAMING ? Acc #: ?[id number] ?Pt. ? Col Date: ?? 07/22/2012 ?/Sex: ?1945,(66 years),Female ? Rec Date: ?? 07/22/2012 ?LOC: ?[id number] ? SURGICAL PATHOLOGY ? ---Pathologic Diagnosis--- ? Left femoral head, osteoarthritis. ?Gross surgical pathology examination. ? CR-0 ? 07/24/12 ? AJE ? 07/25/12 Verified by: ? Marilu Chavis DO ? Pathologist ? (Electronic Signature) ? The attending pathologist whose signature appears on this report has ? reviewed all diagnostic slides and has edited the gross and/or ? microscopic portion of the report in rendering the final pathologic ? diagnosis. ? ---Gross Description--- ? Labeled/Fixativ e: ? Femoral head left, fresh. ? Quantity/Size: ?One femoral head, 5.0 x 5.0 x 4.0 cm. ? Tissue Description: ?? Intact femoral head with up to 2.0-cm length of ? detached neck. ?Margin: ?Smooth, red, trabecular bone. ?Articular surface: Red, granular. ?Eburnation: ?Focal. ?Osteophytes: ? Present. ?Cut surface: ? Yellow, trabecular bone. ?Subchondral Sclerosis: ??Present. ?Subchondral Cysts: ?Absent. ? Sections/Proces sing: ??No sections are submitted. ??aje/SNS ? ---Clinical Information--- ? Specimen Submitted: ? A - Femoral head left ? Clinical History/Diagnos is: ? OA CERNER MILLENNIUM 07/22/2012 6:21 PM EDT Nick Ervin MD PATHOLOGY/CYTOLOGY O JOSELUIS Performing Organization Address [facility] de Phone Number CERRIGO MILLENNIUM * Specimen to Pathology (surgical or derm) (07/22/2012 4:18 PM EDT) AP Specimen 07/22/2012 4:18 PM EDT 07/22/2012 4:18 PM EDT Narrative CERNER MILLENNIUM - 07/22/2012 4:18 PM EDT Specimen requisition ordered. ??Separate Pathology report to follow Nick Ervin MD PATHOLOGY/CYTOLOGY O JOSELUIS Performing Organization Address [facility] de Phone Number CERNER MANISHAENNIUM documented in this encounter Visit Diagnoses Not on filedocumented in this encounter Administered Medications Inactive Administered Medications - up to 3 most recent administrations Medication Order MAR Action Action Date Dose Rate Site ceFAZolin (ANCEF) 2g in dextrose 5% 100mL 2 g, Intravenous, ONCE, 1 dose, On Sat07/22/12 at 1400, Administer over 30 Minutes, To be administered upon arrival to the OR within one hour prior to incision., Day of Surgery (Day of Procedure), Indication for (Active or Suspected): Prophylaxis Given 07/22/2012 4:02 PM EDT 2 g documented in this encounter Active and Recently Administered Medications Times are shown in EDT. Scheduled Medication Order 07/23/2012 07/24/2012 07/25/2012 acetaminophen (TYLENOL) tablet 1,000 mg 1,000 mg, Oral, EVERY 8 HOURS SCHEDULED, First dose on Sat07/22/12 at 2200, Until Discontinued, Maximum dose of acetaminophen is 4000 mg from all sources in 24 hours., Recovery (Recovery-Hospital Unit), Routine 0600 (Given - Provider: Morgan Snider RN)1445 (Given - Provider: Thao Gaona RN)2152 (Given - Provider: Joan Carballo RN) 0600 (Given - Provider: Lisa Bucio RN)1339 (Given - Provider: Marily [place], [place])2123 (Given - Provider: Mel [place], [place]) 0539 (Given - Provider: Mel [place], [place])1316 (Given - Provider: Marily [place], [place]) anastrozole (ARIMIDEX) tablet 1 mg (CANCELED) 1 mg, Oral, DAILY, First dose on Sat07/23/12 at 0900, Until Discontinued, Recovery (Recovery-Hospital Unit), Routine 0900 (Given - Provider: Thao Gaona RN) 0831 (Given - Provider: Marily [place], [place]) 0851 (Given - Provider: [place]) ceFAZolin (ANCEF) 1g in dextrose 5% 50mL (COMPLETED) 1,000 mg (1 g), Intravenous, EVERY 8 HOURS, 3 doses, First dose on Sat07/22/12 at 1845, Last dose on Sat07/23/12 at 1045, Administer over 30 Minutes, For 3 doses postoperatively. Adjust to 8 hours from intraoperative dose., Recovery (Recovery-Hospital Unit), Indication for (Active or Suspected): Prophylaxis 0000 (New Bag - Provider: Morgan Snider RN - Comment: pre op dose given at 1602)0800 (New Bag - Provider: Thao Gaona RN)1700 (New Bag - Provider: Thao Gaona RN) cholecalciferol (Vitamin D3) tablet 400 Units (CANCELED) 400 Units, Oral, DAILY, First dose on Sat07/23/12 at 0900, Until Discontinued, Recovery (Recovery-Hospital Unit), Routine 0900 (Given - Provider: Thao Gaona RN) 0832 (Given - Provider: Marily Murphy RN) 0851 (Given - Provider: Marily Murphy RN) citalopram (celeXA) tablet 40 mg (CANCELED) 40 mg, Oral, DAILY, First dose on Sat07/23/12 at 0900, Until Discontinued, Recovery (Recovery-Hospital Unit), Routine 0900 (Given - Provider: Thao Gaona RN) 0832 (Given - Provider: Marily Murphy RN) 0851 (Given - Provider: Marily Murphy RN) cyanocobalamin (vitamin B-12) tablet 50 mcg (CANCELED) 50 mcg, Oral, DAILY, First dose on Sat07/23/12 at 0900, Until Discontinued, Recovery (Recovery-Hospital Unit), Routine 0900 (Given - Provider: Thao Gaona RN) 0832 (Given - Provider: Marily Murphy RN) 0851 (Given - Provider: Marily Murphy RN) erythromycin (CAIN-TAB) EC tablet 500 mg (CANCELED) 500 mg, Oral, 2 TIMES DAILY, First dose on Sat07/22/12 at 2115, Until Discontinued, Therapeutic interchange acceptable, Recovery (Recovery-Hospital Unit), Routine 0900 (Given - Provider: Thao Ganoa RN)2015 (Given - Provider: Joan Carballo RN) 0832 (Given - Provider: Marily Murphy RN)2122 (Given - Provider: Mel Willett RN) 0851 (Given - Provider: Marily Murphy RN)2100 (Due) esomeprazole (NEXIUM) capsule 40 mg (CANCELED) 40 mg, Oral, DAILY, First dose on Sat07/23/12 at 0900, Until Discontinued, Recovery (Recovery-Hospital Unit), Routine 0900 (Given - Provider: Thao Gaona RN) 0832 (Given - Provider: Marily Murphy RN) 0851 (Given - Provider: Marily Murphy RN) metroNIDAZOLE (METROGEL) 1 % gel (CANCELED) Topical, DAILY, First dose on Sat07/23/12 at 0900, Until Discontinued, Recovery (Recovery-Hospital Unit) 0900 (Given - Provider: Thao Gaona RN) 0832 (Given - Provider: Marily Murphy RN) 0852 (Given - Provider: Marily Murphy RN) multivitamin Xxen-Cb-CK-Min (THERAPEUTIC-M) 27-0.4 mg tablet 1 tablet (CANCELED) 1 tablet, Oral, DAILY, First dose on Sat07/23/12 at 0900, Until Discontinued, Recovery (Recovery-Hospital Unit) 0900 (Given - Provider: Thao Gaona RN) 0832 (Given - Provider: Marily Murphy RN) 0852 (Given - Provider: Marily Murphy RN) rivaroxaban (XARELTO) tablet 10 mg 10 mg, Oral, DAILY, First dose on Sat07/23/12 at 0900, Until Discontinued, Recovery (Recovery-Hospital Unit), Routine, Restricted anticoagulant, choose the most appropriate response: Approved indication of hip replacement DVT prophylaxis 09 (Given - Provider: Thao Gaona RN) 0832 (Given - Provider: Marily Murphy RN) 0852 (Given - Provider: Marily Murphy RN) scopolamine (TRANSDERM SCOP) patch REMOVAL (CANCELED)(Linked Group 1) Transdermal, EVERY 72 HOURS, First dose on Sat07/25/12 at 1500, Until Discontinued, Remove Scopolamine Patch 151 (Given - Provider: Marily Murphy RN) scopolamine (TRANSDERM-SCOP) 1.5 mg patch 1 patch(Linked Group 1) 1 patch, Transdermal, EVERY 72 HOURS, First dose on Sat07/22/12 at 1515, Until Discontinued, Routine 1519 (Given - Provider: Marily Murphy RN) senna-docusate (PERICOLACE) 8.6-50 mg per tablet 1-4 tablet 1-4 tablet, Oral, 2 TIMES DAILY, First dose on Sat07/22/12 at 2115, Until Discontinued, Start with 1 tablet or liquid equivalent orally twice daily and titrate up to achieve: 1. One bowel movement at least every 48 hours, AND 2. Without straining, Recovery (Recovery-Hospital Unit), Routine 0900 (Given - Provider: Thao Gaona RN)2015 (Given - Provider: Joan Carballo RN) 832 (Given - Provider: Marily Murphy RN)2122 (Given - Provider: Mel Wil[place], [place]) 08 (Given - Provider: Marily Murphy RN)2099 (Due) sodium chloride 0.9 % flush 5 mL (CANCELED) 5 mL, Intravenous, EVERY 12 HOURS, First dose on Sat07/22/12 at 2115, Until Discontinued, Recovery (Recovery-Hospital Unit) 0915 (Given - Provider: Thao Gaona RN)2015 (Given - Provider: Joan Carballo RN) 832 (Given - Provider: Marily Murphy RN)2122 (Given - Provider: Mel [place]lett, [place]) 08 (Given - Provider: Marily Murphy RN)2099 (Due - Provider: Morgan Smith [facility]) sodium phosphates (FLEET) 19-7 gram/118 mL rectal enema 1 Bottle (COMPLETED) 1 Bottle, Rectal, ONCE, 1 dose, On Sat07/25/12 at 1330, Routine 1247 (Given - Provider: Marily Murphy RN) tretinoin (RETIN-A) 0.05 % cream (CANCELED) Topical, NIGHTLY, First dose on Sat07/23/12 at 0900, Until Discontinued, Recovery (Recovery-Hospital Unit) 2015 (Given - Provider: Joan Carballo RN) 2122 (Given - Provider: Mel Willett RN) 2099 (Due - Provider: Morgan Smith [facility]) Continuous Medication Order 07/23/2012 07/24/2012 07/25/2012 lactated ringers infusion (CANCELED) 125 mL/hr, Intravenous, CONTINUOUS, Starting on Sat07/22/12 at 1845, Until Sat07/23/12 at 0740, Recovery (Recovery-Hospital Unit) 0257 (New Bag - Provider: Morgan Snider, RN) PRN Medication Order 07/23/2012 07/24/2012 07/25/2012 bisacodyl (DULCOLAX) EC tablet 10 mg 10 mg, Oral, 2 TIMES DAILY PRN, Starting on Sat07/22/12 at 2046, Until Sat07/25/12 at 2320, Constipation, Administer if needed per patient's routine or if no bowel movement within 48 hours, Recovery (Recovery-Hospital Unit), Routine bisacodyl (DULCOLAX) suppository 10 mg 10 mg, Rectal, DAILY PRN, Starting on Sat07/22/12 at 2046, Until Sat07/25/12 at 2320, Constipation, Administer if needed per patient's routine or if no bowel movement within 48 hours, Recovery (Recovery-Hospital Unit), Routine 0851 (Given - Provider: Marily Murphy RN) HYDROmorphone (DILAUDID) tablet 2-4 mg 2-4 mg, Oral, EVERY 4 HOURS PRN, Starting on Sat07/25/12 at 1151, Until Sat07/25/12 at 2320, Pain, Routine magnesium citrate oral solution 300 mL (CANCELED)(Linked Group 2) 300 mL, Oral, DAILY PRN, Starting on Sat07/22/12 at 2046, Until Sat07/25/12 at 2320, Constipation, May repeat times 1 in 4 hours, Recovery (Recovery-Hospital Unit), Routine 1315 (Given - Provider: Marily [place], [place]) ondansetron (ZOFRAN) injection 4 mg (CANCELED) 4 mg, Intravenous, EVERY 8 HOURS PRN, Starting on Sat07/23/12 at 0504, Until Sat07/25/12 at 2320, Nausea, Routine 0517 (Not Given - Provider: Morgan Snider, [place] - Reason: Entered in Error)0530 (Given - Provider: Morgan Snider, RN)1410 (Given - Provider: Thao Mathur V RN) 0850 (Given - Provider: Marily [place], [place]) OXYcodone (ROXICODONE) immediate release tablet 10 mg (CANCELED)(Linked Group 3) 10 mg, Oral, EVERY 4 HOURS PRN, Starting on Sat07/22/12 at 1824, Until Sat07/25/12 at 1150, Pain, moderate pain, For Moderate pain. Do not exceed 15 mg in 4 hours. If pain not relieved, call provider., Recovery (Recovery-Hospital Unit), Routine 0133 (See Alternative - Provider: Morgan Snider RN)0452 (Given - Provider: Morgan Snider RN)0935 (Given - Provider: Thao Gaona RN)1850 (Given - Provider: Thao Gaona RN) 012 (Given - Provider: Lisa Bucio RN)0518 (Given - Provider: Lisa Bucio RN)121 (Given - Provider: Marily Murphy RN)165 (Given - Provider: Marily Murphy RN)2121 (Given - Provider: Mel Willett RN) 0156 (Given - Provider: Mel Willett RN)0851 (Given - Provider: Marily Murphy RN) OXYcodone (ROXICODONE) immediate release tablet 5 mg (CANCELED)(Linked Group 3) 5 mg, Oral, EVERY 4 HOURS PRN, Starting on Sat07/22/12 at 1824, Until Sat07/25/12 at 1150, Pain, mild pain, For Mild pain. Do not exceed 15 mg in 4 hours. If pain not relieved, call provider, Recovery (Recovery-Hospital Unit), Routine 0133 (Given - Provider: Morgan Snider RN)0452 (See Alternative - Provider: Morgan Snider RN)0935 (See Alternative - Provider: Thao Gaona RN)1850 (See Alternative - Provider: Thao Gaona RN) 0122 (See Alternative - Provider: Lisa Bucio RN)0518 (See Alternative - Provider: Lisa Bucio RN)121 (See Alternative - Provider: Marily Murphy RN)165 (See Alternative - Provider: Marily Murphy RN)2121 (See Alternative - Provider: Mel Willett RN) 0156 (See Alternative - Provider: Mel Willett RN)0851 (See Alternative - Provider: Marily Murphy RN) polyethylene glycol (MIRALAX) packet 17 g 17 g, Oral, DAILY PRN, Starting on Sat07/22/12 at 204, Until Sat07/25/12 at 2320, Constipation, Administer if needed per patient's routine or if no bowel movement within 48 hours, Recovery (Recovery-Hospital Unit), Routine Linked Groups Order Group 1: scopolamine (TRANSDERM-SCOP) 1.5 mg patch 1 patchJump to med 1 patch, Transdermal, EVERY 72 HOURS, First dose on Sat07/22/12 at 1515, Until Discontinued, Routine And scopolamine (TRANSDERM SCOP) patch REMOVAL (CANCELED)Jump to med Transdermal, EVERY 72 HOURS, First dose on Sat07/25/12 at 1500, Until Discontinued, Remove Scopolamine Patch Group 2: magnesium citrate oral solution 300 mL (CANCELED)Jump to med 300 mL, Oral, DAILY PRN, Starting on Sat07/22/12 at 2045, Until Sat07/25/12 at 2320, Constipation, May repeat times 1 in 4 hours, Recovery (Recovery-Hospital Unit), Routine Or magnesium citrate oral solution 300 mL (CANCELED) 300 mL, Per G Tube, DAILY PRN, Starting on Sat07/22/12 at 2046, Until Sat07/25/12 at 2320, Constipation, May repeat times 1 in 4 hours, Recovery (Recovery- Hospital Unit), Routine Group 3: OXYcodone (ROXICODONE) immediate release tablet 5 mg (CANCELED)Jump to med 5 mg, Oral, EVERY 4 HOURS PRN, Starting on Sat07/22/12 at 1824, Until Sat07/25/12 at 1150, Pain, mild pain, For Mild pain. Do not exceed 15 mg in 4 hours. If pain not relieved, call provider, Recovery (Recovery-Hospital Unit), Routine Or OXYcodone (ROXICODONE) immediate release tablet 10 mg (CANCELED)Jump to med 10 mg, Oral, EVERY 4 HOURS PRN, Starting on Sat07/22/12 at 1824, Until Sat07/25/12 at 1150, Pain, moderate pain, For Moderate pain. Do not exceed 15 mg in 4 hours. If pain not relieved, call provider., Recovery (Recovery-Hospital Unit), Routine Or OXYcodone (ROXICODONE) immediate release tablet 15 mg (CANCELED) 15 mg, Oral, EVERY 4 HOURS PRN, Starting on Sat07/22/12 at 1824, Until Sat07/25/12 at 1150, Pain, severe pain, For severe pain. Do not exceed 15 mg in 4 hours. If pain not relieved, call provider., Recovery (Recovery-Hospital Unit), Routine documented in this encounter Care Teams Substitute School Nurse Relationship Specialty Start Date End Date Mariluz Watts MD [address] [place] [address] PCP - General 08/22/10 documented as of this encounter
--- OUTSIDE RECORDS SUMMARY | 2024-05-18 20:01 | XMS_ITS | Encounter Summary ---
[facility] [place] [address] Care Team Providers Care Aeronautical Research Engineer Name Role Phone Mariluz Watts MD Primary Care Provider Encounter Details Date Type Department Care Team (Latest Contact Info) Description 02/29/2012 11:00 AM EDT - 02/29/2012 2:14 PM EDT Hospital En[place] [address] Gallito Lincoln MD [facility] [place] [address] Discharge Disposition: Home Social History Tobacco Use Types Packs/Day Years Used Date Smoking Tobacco: Former Cigarettes 1 3 0 09/30/1965 - 09/30/1968 Smokeless Tobacco: Never Alcohol Use Standard Drinks/Week Comments No 0 (1 standard drink = 0.6 oz pur e alcohol) rarely Sex and Gender Information Value Date Recorded Sex Assigned at Not on file Gender Identity Not on file Sexual Orientation Not on file documented as of this encounter Last Filed Vital Signs Vital Sign Reading Time Taken Comments Blood Pressure 124/67 02/29/2012 12:58 PM EDT Pulse 61 02/29/2012 12:58 PM EDT Temperature 36.5 ??C (97.7 ??F) 02/29/2012 11:12 AM E DT Respiratory Rate 16 02/29/2012 12:58 PM EDT Oxygen Saturation 95% 02/29/2012 12:58 PM EDT Inhaled Oxygen Concentration - - Weight - - Height - - Body Mass Index - - documented in this encounter Discharge Instructions * Discharge Instructions* Shaila Lezama RN - 02/29/2012 1:01 PM EDT Please call [phone], before 5pm with problems, questions or concerns, after 5pm call the Hospital at [phone] and ask to speak to the Epic Cadence Analyst reference and instruction librarian and the cadd operator will contactthat person for you. Discharge instructions reviewed with patient who expresses understanding. You may have received medications before and/or [...] foul drainage occurs, please contact your Doctor. * Patient Instructions* Gallito Lincoln MD - 02/29/2012 11:25 AM EDT Please see Recommendations in the Provation procedure report which is documented in the procedural note in E-[facility]. * Attachments The following attachments cannot be sent through Care Everywhere. * COLONOSCOPY: WHAT TO EXPECT AT HOME (SWEDISH) documented in this encounter Medications at Time of Discharge Medication Sig Dispensed Refills Start Date End Date erythromycin (CAIN-TAB) 500 mg EC tabletIndications:Leonie cea Take 1 tablet by mouth 2 times daily (with meals). 02/21/2012 04/04/2012 tretinoin (RETIN-A) 0.05 % creamIndications:Rosac ea Apply topically nightly. 45 g 1 11/13/2011 08/27/2012 citalopram (CELEXA) 40 mg tabletIndications:depr ession Take 40 mg by mouth daily. Indications: Depression 05/20/2013 ARIMIDEX 1 mg tablet TAKE ONE TABLET BY MOUTH ONCE DAILY. 90 tablet 3 08/16/2011 07/25/2012 metroNIDAZOLE (METROGEL) 1 % gel 10/26/2010 2 multivitamin (THERAGRAN) tablet 10/26/2010 2 documented as of this encounter H&P Notes * Gallito Lincoln MD - 02/29/2012 11:24 AM EDT Gastroenterology and Hepatology Pre-Procedure History and Physical Exam Procedure: Colonoscopy: Indication: polyp f/u Patient Active Problem List Diagnoses Code ??? Anxiety associated with depression 300.4BM ??? 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 Diverticulosis 562.10G ??? Degenerative joint disease 715.90AF ??? Breast cancer, stage 2 174.9BV ??? Rosacea 695.3 ??? GI bleeding 578.9AB ??? Hip pain 719.45F ??? S/P hip replacement V43.64AC EXAM: HEENT: Airway examined, oropharynx clear LUNGS: Clear to auscultation HEART: Regular rate and rhythm, normal S1, S2 ABDOMEN: Normal bowel sounds, soft, non tender, non distended, A/P Proceed with the planned endoscopic procedure. Risks and benefits of the procedure explained to the patient. Consent signed. documented in this encounter Miscellaneous Notes * Miscellaneous - Provider, Scanning - 03/01/2012 1:20 AM EDT * Miscellaneous - Provider, Scanning - 02/29/2012 2:29 PM EDT documented in this encounter Plan of Treatment Upcoming Encounters Date Type Department Care Team (Late st Contact Info) Description 11/16/2024 1:00 PM EST Office [place] [address] Paula Harris PA [facility] [place] [address] 01/26/2025 9:50 AM EDT Appointment Mammography/[place] [address] Joan Deutsch, [facility] GENERAL SURGERY [place], [place] [id number] 01/26/2025 10:50 AM EDT Office [place] [address] Joan Deutsch, [facility] GENERAL SURGERY [place], [place] [id number] documented as of this encounter Procedures Procedure Name Priority Date/Time Associated Diagnosis Comments COLONOSCOPY Routine 02/29/2012 12:01 PM EDT COLONOSCOPY, DIAGNOSTIC (WRVU 3.26) 02/29/2012 11:39 AM EDT 5YR RESCOPE documented in this encounter Results * COLONOSCOPY (02/29/2012 12:01 PM EDT) [facility] Signature COLONOSCOPY [facility] Endoscopy Patient Name: Diamond Gaming ? Procedure Date: 02/29/2012 12:01 PM ? Date of : 1945 ? Age: 66 ? Order #: [id number] ? Procedure: ? Colonoscopy Indications: ? Follow-up for history of adenomatous ? polyps in the colon Providers: ? Gallito Lincoln MD, Anu Schafer, ? [place], Margret Shen, Legal Director Referring : ?Mariluz Watts MD Medicines: ? Midazolam 5 mg IV, Fentanyl 250 ? micrograms IV Complications: ? No immediate complications. Procedure: ? Pre-Anesthesia Assessment: ? - ASA Grade Assessment: II - A ? patient with mild systemic disease. ? The procedure, indications, benefits, ? risks [...] The Colonoscope was inserted in the ? and under direct visualization, ? advanced to. Careful inspection was ? made as the colonoscope was ? withdrawn. The colonoscopy was ? performed without difficulty. ? Findings: ? Multiple large-mouthed diverticula were found in the ? sigmoid colon, in the descending colon, in the ? transverse colon and in the ascending colon. The ? terminal ileum appeared normal. Internal hemorrhoids ? were found during retroflexion and were medium-sized. ? Impression: ?- Diverticulosis in the sigmoid ? colon, in the descending colon, in ? the transverse colon and in the ? ascending colon. ? - The examined portion of the ileum ? was normal. ? - Internal hemorrhoids. Recommendation: ?- Repeat colonoscopy in 5 years for ? surveillance. ? _ Gallito Lincoln MD 02/29/2012 12:55 PM ? Number of Addenda: 0 Note Initiated On: 02/29/2012 12:01 PM PROVATION 02/29/2012 12:0 1 PM EDT Mariluz Watts MD [facility]AL [facility] PROVATION documented in this encounter Visit Diagnoses Not on filedocumented in this encounter Active and Recently Administered Medications Times are shown in EDT. PRN Medication Order 02/27/2012 02/28/2012 02/29/2012 fentaNYL 50mcg/mL injection (CANCELED) ONCE PRN, Starting on Sat02/29/12 at 1144, Until Sat02/29/12 at 1718, Pain, Intra-Operative (Intra-Procedure), Routine 1144 (Given - Provid er: Anu Schafer RN - Comment: pre sedation)1147 (Given - Provider: Anu Schafer RN - Comment: sedation needed)1217 (Given - Provider: Trudi Steele RN)1228 (Given - Provider: Trudi Steele RN)1231 (Given - Provider: Trudi Steele RN) midazolam (VERSED) injection (CANCELED) ONCE PRN, Starting on Sat02/29/12 at 1145, Until Sat02/29/12 at 1718, Sleep, Intra-Operative (Intra-Procedure), Routine 1145 (Given - Provid er: Anu Schafer RN - Comment: pre sedation)1147 (Given - Provider: Anu Schafer RN - Comment: sedation needed)1217 (Given - Provider: Trudi Steele RN)1228 (Given - Provider: Trudi Steele RN)1231 (Given - Provider: Trudi Steele RN) documented in this encounter Care Teams Aeronautical Research Engineer Relationship Specialty Start Date End Date Mariluz Watts MD [address] [place] [address] PCP - General 08/22/10 documented as of this encounter
--- OUTSIDE RECORDS SUMMARY | 2024-05-18 20:01 | XMS_ITS | Encounter Summary ---
Author Organization [facility] [place] [address] Care Team Providers Care Supervisor Acoustical Tile Carpenters Name Role Phone Mariluz Watts MD Primary Care Provider [phone] Reason for Visit * Reason Comments Rosacea Encounter Details Date Type Department Care Team (Late st Contact Info) Description 02/21/2012 3:30 PM EDT [place] [address] Chayo Willingham MD [facility] [place] [address] Rosacea (Primary Dx); Sebaceous hyperplasia Discharge Disposition: Home Social History Tobacco Use [...] as of this encounter Progress Notes * Saira Fernandez MD - 02/21/2012 4:30 PM EDT I was the supervising physician working with dermatology resident Dr. Chayo Willingham in the dermatology clinic during this patient visit. The level of Resident supervision for this patient visit was indirect supervision with direct supervision immediately available. (definition: [facility] GME Policy Statement on Graduate Medical Education, Supervision of Graduate Medical Trainees) I was immediately available to Dr. Willingham for questions and discussion regarding this visit. I have reviewed his encounternote details and level of service. * Chayo Willingham MD - 02/21/2012 3:35 PM EDT DERMATOLOGY - ESTABLISHED PATIENT FOLLOW-UP Date of service: 02/21/2012 Diamond Gaming : 1945 Dermatology Resident Note: Chayo Willingham MD Chief Complaint Patient presents with ??? Rosacea Ms. Diamond Gaming is a 66 y.o. female. This is an established patient, last seen by me on 11/13/2011. HPI: Ms. Gaming presents for follow-up of rosacea, patient reports noted improvement still a bit itchy and occasional pustules. Current therapy; Erythromycin 250mg twice daily and Tretinoin 0.05 % cream apply nightly. Not really using the metrogel. She is tolerating these meds well. No new problems, doing well. 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 Anxiety associated with depression 300.4BM ??? 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 Diverticulosis 562.10G ??? Degenerative joint disease 715.90AF ??? Breast cancer, stage 2 174.9BV ??? Rosacea 695.3 ??? GI bleeding 578.9AB ??? Hip pain 719.45F ??? S/P hip replacement V43.64AC Medications: Current outpatient prescriptions ordered prior to encounter Medication Sig Dispense Refill ??? tretinoin (RETIN-A) 0.05 % cream Apply topically nightly. 45 g 1 ??? erythromycin (CAIN-TAB) 250 mg EC tablet Take 1 tablet by mouth 2 times daily (with meals). 60 tablet 2 ??? citalopram (CELEXA) 40 mg tablet Take 40 mg by mouth daily. Indications: Depression ??? ARIMIDEX 1 mg tablet TAKE ONE TABLET BY MOUTH ONCE DAILY. 90 tablet 3 ??? ERGOCALCIFEROL, VITAMIN D2, (VITAMIN D ORAL) Take 2,200 Units by mouth daily. ??? ibuprofen (ADVIL;MOTRIN) 600 mg tablet 600MG, PO, Four times daily PRN ??? metroNIDAZOLE (METROGEL) 1 % gel ??? multivitamin (THERAGRAN) tablet Allergies: Allergies Allergen Reactions ??? Tetracycline Analogues Anaphylaxis ??? Hymenoptera Allergenic Extract Anaphylaxis Bee Stings Family History: No family history of melanoma or non-melanoma skin cancer No family history of atopy, psoriasis or other skin disease Social History: had granddaughter with her today Review of Systems: - General: Feels well. - Skin: As per HPI; no other skin concerns. Examination: - Constitutional: Patient was alert, well-appearing and in no noticeable distress. - Skin: An abbreviated skin exam was performed; this includes: face Specific skin findings: 1. Diffuse erythema and telangiectasias on central face. One pustule on nose. 2. Numerous 1mm-2mm yellow umbilicated papules on glabella/forehead/nasolabial fold/medial cheeks. Diagnosis/Assessment/Treatment Plan: 1. Rosacea + Sebaceous Hyperplasia -Overall improved but still could be better, still getting pustules. -Increase Erythromycin to 500 mg twice daily -continue Tretinoin 0.05 % cream apply nightly as skin tolerated . -She will use her metrogel in the morning. -Educated on the importance of proper sun protection. -She will call with any concerns. - Discussed possible Laser treatment in the future for telangiectasia. Pt agreed to try LN2 today to a couple of her SH lesions to see if they will resolve, as these lesions are very pruritic and irritating to her. Procedure(s): Destruction of lesion(s) with cryotherapy. Number: 2 Location: left cheek, mid glabella Discussed procedure and expectations including risks (including risk of hypopigmentation) and benefits. Verbal consent obtained. Frozen with LN2, 15-30 second thaw time, TWICE. There were no complications; the patient tolerated the procedure well. Post-procedure expectations and wound care were reviewed. RTC in 3 months. Instructed to call for questions/concerns. Note initiated by SOLITARIO PADILLA LPN Reviewed and signed by Chayo Willingham MD Resident in Dermatology [facility] Patient discussed with staff gunner mate: Tulio Fernandez MD Section of Dermatology [facility] documented in this encounter Plan of Treatment Upcoming Encounters Date Type Department Care Team (Late st Contact Info) Description 11/16/2024 1:00 PM EST Office [place] [address] Paula Harris PA [facility] [place] [address] 01/26/2025 9:50 AM EDT Appointment Mammography/DXA at [place] [phone] Joan Deutsch APRN [facility] [place] [address] 01/26/2025 10:50 AM EDT Office [place] [address] Joan Deutsch APRN [facility] [place] [address] documented as of this encounter Visit Diagnoses Diagnosis Rosacea- Primary Sebaceous hyperplasia Other specified disease of sebaceous glands documented in this encounter Care Teams Supervisor Acoustical Tile Carpenters Relationship Specialty Start Date End Date Mariluz Watts MD [address] [place] [address] PCP - General 08/22/10 documented as of this encounter
--- OUTSIDE RECORDS SUMMARY | 2024-05-18 20:01 | XMS_ITS | Encounter Summary ---
Author Organization [facility] [place] [address] Care Team Providers Care Carbon Paper Coating Supervisor Name Role Phone Mariluz Watts MD Primary Care Provider [phone] Encounter Details Date Type Department Care Team (Latest Contact Info) Description 05/02/2012 12:56 PM EDT - 05/02/2012 11:59 PM EDT [place] [address] CLINIC, DR KATARINA Merlos, Abrahan Chavarria MD [facility] HEMATOLOGY/[place] [address] Discharge Disposition: Home Social History Tobacco Use [...] times daily. 60 tablet 3 07/25/2012 08/12/2013 LACTOBACILLUS RHAMNOSUS GG (PROBIOTIC ORAL) Take by [...] PM EST Office Visit General Surgery at [place] [phone] Paula Harris PA [facility] [place] [address] 01/26/2025 9:50 AM EDT Appointment Mammography[place] [phone] Joan Deutsch APRN [facility] [place] [address] 01/26/2025 10:50 AM EDT Office [place] [address] Joan Deutsch APRN [facility] [place] [address] documented as of this encounter Visit Diagnoses Not on filedocumented in this encounter Care Teams Carbon Paper Coating Supervisor Relationship Specialty Start Date End Date Mariluz Watts MD [address] [place] [address] PCP - General 08/22/10 documented as of this encounter
--- OUTSIDE RECORDS SUMMARY | 2024-05-18 20:01 | XMS_ITS | Encounter Summary ---
Author Organization [facility] [place] [address] Care Team Providers Care Police Crime Scene Technician Name Role Phone Mariluz Watts MD Primary Care Provider [phone] Encounter Details Date Type Department Care Team (Late st Contact Info) Description 07/21/2012 External [place] [address] Social History Tobacco Use Types Packs/Day Years [...] PM EST Office [place] [phone] Paula Harris PA [facility] [place] [address] 01/26/2025 9:50 AM EDT Appointment Mammography/[place] [address] Joan Deutsch, [facility] [address] 01/26/2025 10:50 AM EDT Office [place] [address] Joan Deutsch, [facility] [place] [address] documented as of this encounter Visit Diagnoses Not on filedocumented in this encounter Care Teams Police Crime Scene Technician Relationship Specialty Start Date End Date Mariluz Watts MD [address] [place] [address] [address] [place] [address] PCP - General 08/22/10 documented as of this encounter
--- OUTSIDE RECORDS SUMMARY | 2024-05-18 20:01 | XMS_ITS | Encounter Summary ---
Author Organization [facility] [place] [address] Care Team Providers Care Microwave Radio Technician Name Role Phone Mariluz Watts MD Primary Care Provider [phone] Reason for Visit * Reason Onset Date Comments Medication Refill 04/04/2012 Encounter Details Date Type Department Care Team (Late st Contact Info) Description 04/04/2012 [place] [address] Chayo Willingham MD [facility] [place] [address] Rosacea Social History Tobacco Use Types Packs/Day [...] encounter Miscellaneous Notes * Telephone Encounter - Suzi Cardenas LPN - 04/04/2012 8:48 AM EDT This patient called asking for a refill on her Erythromycin, script sent to Dr Willingham * Telephone Encounter - Debbi Burch - 04/04/2012 8:37 AM EDT CHENCHO PT -- Pt need a refill of the erythromycin MARY. She never got it when it was originally senton 02/21/12. She does not have enough to last through the weekend. You can contact the pt at [phone]. She would like the RX sent to the [facility]. Thanks Debbi documented in this encounter Plan of Treatment Upcoming Encounters Date Type Department Care Team (Late st Contact Info) Description 11/16/2024 1:00 PM EST Office [place] [address] Paula Harris PA [facility] [place] [address] 01/26/2025 9:50 AM EDT Appointment Mammography/DXA at [place] [phone] Joan Deutsch APRN [facility] [place] [address] 01/26/2025 10:50 AM EDT Office Visit General Surgery at [place] [phone] Joan Deutsch APRN [facility] [place] [address] documented as of this encounter Visit Diagnoses Diagnosis Rosacea documented in this encounter Care Teams Microwave Radio Technician Relationship Specialty Start Date End Date Mariluz Watts MD [address] [place] [address] [address] [place] [address] PCP - General 08/22/10 documented as of this encounter
--- OUTSIDE RECORDS SUMMARY | 2024-05-18 20:01 | XMS_ITS | Encounter Summary ---
Author Organization [facility] [place] [address] Care Team Providers Care Mechanical Maintenance Foreman Name Role Phone Mariluz Watts MD Primary Care Provider [phone] Reason for Visit * Reason Comments Rosacea Encounter Details Date Type Department Care Team (Late st Contact Info) Description 05/02/2012 3:30 PM EDT [place] [address] Chayo Willingham MD [facility] DR [facility]G [place] [address] Rosacea (Primary Dx); Sebaceous hyperplasia Discharge Disposition: [...] Progress Notes * Saira Fernandez MD - 05/05/2012 5:40 PM EDT I directly supervised Dr. Willingham during this office visit. Dr. Willingham presented the history and physical exam to me. I then saw and examined this patient with Dr. Willingham. We reviewed the history and pertinent details and I confirmed the physical findings. I agree with the details of the history and physical exam as documented in Dr. Chayo Willingham's note. * Chayo Willingham MD - 05/02/2012 3:43 PM EDT DERMATOLOGY - ESTABLISHED PATIENT FOLLOW-UP Date of service: 05/02/2012 Diamond Gaming : 1945 Dermatology Resident Note: Chayo Willingham MD Chief Problem: Rosacea Chief Complaint Patient presents with ??? Rosacea Ms. Diamond Gaming is a 66 y.o. female. This is an established patient, last seen by myself on 02/21/2012. HPI: Ms. Gaming presents for follow-up of rosacea. Pt states with current treatment of Emycin, Retin-A and Metro-gel, her skin is much improved. She is happy. The cherelle hyperplasia lesions we treated w/ LN2 at her last visit are much less bothersome, but she has a few others that get irritated and very itchy. Skin History: Rosacea Sebaceous hyperplasia Medical History: Patient Active Problem List Diagnoses Code ??? Anxiety associated with depression 300.4BM ??? 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 Diverticulosis 562.10G ??? Degenerative joint disease 715.90AF ??? Breast cancer, stage 2 174.9BV ??? Rosacea 695.3 ??? GI bleeding 578.9AB ??? Hip pain 719.45F ??? S/P hip replacement V43.64AC Medications: Current outpatient prescriptions ordered prior to encounter Medication Sig Dispense Refill ??? LACTOBACILLUS RHAMNOSUS GG (PROBIOTIC ORAL) Take by mouth daily. ??? erythromycin base (E-MYCIN) [...] ??? Hymenoptera Allergenic Extract Anaphylaxis Bee Stings Review of Systems: - General: Feels well. - Skin: As per HPI; no other skin concerns. Examination: - Constitutional: Patient was alert, well-appearing and in no noticeable distress. - Skin: An abbreviated skin exam was performed; this includes: the face Specific skin findings: 1. Numerous 1mm-2mm yellow dome-shaped papules on the face, sub mandibular and left malar cheek 2. Telangectasia on face, no pustules Diagnosis/Assessment/Treatment Plan: 1. Irritated Sebaceous hyperplasia sub mandibular(3), Left malar cheek(3) Pt agreed to the following treatment Procedure(s): Destruction of lesion(s) with cryotherapy. Number: 6 Location: as above Discussed procedure and expectations including risks (including risk of hypopigmentation) and benefits. Verbal consent obtained. Frozen with LN2, 15-30 second thaw time, TWICE. There were no complications; the patient tolerated the procedure well. Post-procedure expectations and wound care were reviewed. 2. Rosacea Will continue on Retin-A, Metro-gel and Emycin orally 500 mgBID, if she continues to do well, patient will decrease to 250 mg daily and see how she does. She prefers her next f/u to be in oct 2012. She will call with concerns. Follow-up: RTC in 8 months. Instructed to call for questions or concerns. Chayo Willingham MD Resident in Dermatology [facility] Patient seen and evaluated Saira Fernandez MD Section of Dermatology [facility] documented in this encounter Plan of Treatment Upcoming Encounters Date Type Department Care Team (Late st Contact Info) Description 11/16/2024 1:00 PM EST Office Visit General Surgery at [place] [phone] Paula Harris PA [facility] [place] [address] 01/26/2025 9:50 AM EDT Appointment Mammography/DXA at [place] [phone] Joan Deutsch [facility] [place] [address] 01/26/2025 10:50 AM EDT Office Visit General Surgery at [place] [phone] Joan Deutsch [facility] [place] [address] documented as of this encounter Visit Diagnoses Diagnosis Rosacea- Primary Sebaceous hyperplasia Other specified disease of sebaceous glands documented in this encounter Care Teams Mechanical Maintenance Foreman Relationship Specialty Start Date End Date Mariluz Watts MD [address] [place] [address] [address] [facility] [place] [address] PCP - General 08/22/10 documented as of this encounter
--- OUTSIDE RECORDS SUMMARY | 2024-05-18 20:01 | XMS_ITS | Encounter Summary ---
[place] [address] Care Team Providers Care Armor Reconnaissance Vehicle Driver Name Role Phone Mariluz Watts MD Primary Care Provider [phone] Encounter Details Date Type Department Care Team (Latest Contact Info) Description 07/08/2012 12:00 PM EDT Clinical [place] [address] DJD (degenerative joint disease) of hip (Primary Dx) Social History Tobacco Use Types [...] Taken Comments Blood Pressure - - Pulse 90 07/08/2012 12:01 PM EDT Temperature - - Respiratory Rate - - Oxygen Saturation 98% 07/08/2012 12:01 PM EDT Inhaled Oxygen Concentration - - Weight 98 kg (216 lb) 07/08/2012 12:01 PM EDT Height 168.9 cm (5' 6.5) 07/08/2012 12:01 PM ED T Body Mass Index 34.34 07/08/2012 12:01 PM EDT documented in this encounter Progress Notes * Aric Lee, RN - 07/08/2012 12:37 PM EDT Patient Name: Diamond Gaming Patient Age: 66 y.o. Birthdate: 1945 Admit date: (Not on file) Attending Physician: No att. providers found PAT questionnaire reviewed with patient while in pre-admission testing. Pre- operative teaching folder reviewed with patient ~ expresses good understanding of all information reviewed. Pt had general anesthesia here last year and other times before and doesn't get sick at all when scopolamine patch applied. Pt has hypermobility syndrome and needs amicar in preop. Blood work, T&S, urine, EKG and CXR to be done today. documented in this encounter Plan of Treatment Upcoming Encounters Date Type Department Care Team (Late st Contact Info) Description 11/16/2024 1:00 PM EST Office Visit General Surgery at [place] [phone] Paula Harris PA [facility] [place] [address] 01/26/2025 9:50 AM EDT Appointment Mammography/[place] [address] Joan Deutsch APRN [facility] [place] [address] 01/26/2025 10:50 AM EDT Office Visit General Surgery at [place] [phone] Joan Deutsch APRN [facility] [place] [address] documented as of this encounter Procedures Procedure Name Priority Date/Time Associated Diagnosis Comments EKG 12-LEAD Routine 07/08/2012 1:37 PM EDT DJD (degenerative joint disease) of hip documented in this encounter Results * EKG 12 Lead (07/08/2012 1:37 PM EDT) Ventricular rate 68 BPM MUSE SYSTEM Atrial Rate 68 BPM MUSE SYSTEM P-R Interval 194 ms MUSE SYSTEM QRS Duration 70 ms MUSE SYSTEM Q-T Interval 388 ms MUSE SYSTEM QTC Calculated (Bezet) 412 ms MUSE SYSTEM Calculated P [place] 58 degrees MUSE SYSTEM Calculated R [place] -26 degrees MUSE SYSTEM Calculated T [place] 37 degrees MUSE SYSTEM INTERPRETATION Sinus rhythm with marked sinus arrhythmia Otherwise normal ECG When compared with ECG of 13-MAR-2010 09:34, No significant change was found Confirmed by MD Dooley Douglas ([id number]) on 07/08/2012 3:36:13 PM MUSE SYSTEM 07/08/2012 1:37 PM EDT 07/08/2012 3:36 PM EDT Kian Ervin MD ECG ORDERABLES MUSE SYSTEM documented in this encounter Visit Diagnoses Diagnosis DJD (degenerative joint disease) of hip- Primary Osteoarthrosis, unspecified whether generalized or localized, pelvic region and thigh documented in this encounter Care Teams Armor Reconnaissance Vehicle Driver Relationship Specialty Start Date End Date Mariluz Watts MD [address] [place] [address] [address] PCP - General 08/22/10 documented as of this encounter
--- OUTSIDE RECORDS SUMMARY | 2024-05-18 20:01 | XMS_ITS | Encounter Summary ---
[place] [address] Care Team Providers Care Cement Boat And Barge Loader Name Role Phone Mariluz Watts MD Primary Care Provider [phone] Encounter Details Date Type Department Care Team (Late st Contact Info) Description 07/28/2012 Telephone [place] [address] Taz Morales RN Social History Tobacco Use Types Packs/Day [...] encounter Miscellaneous Notes * Telephone Encounter - Taz Horner RN - 07/28/2012 10:51 AM EDT Patient calls with concerns about side effects from her medications. She has been haven some hallucinations and is not sure if it is the Dilaudid or the scopolamine patches she was given for nausea and vomiting. She would like a different pain medication mailed to her local pharmacy which we will do today. She is going to try taking off the patch and see how she dose. She does have one more patchleft if the nausea or vomiting return. She also states that she has not had a BM in a week. Her discharge summary states that she did have a BM before leaving the hospital but she states that after an enema she had two tiny bits come out and that was it. She has taken 4 senna and docusate tabs inthe last 24 hours. She has some bloating but no cramping. She has some magnesium citrate at home and was advised to take that now. She will call back if she does not have any results. documented in this encounter Plan of Treatment Upcoming Encounters Date Type Department Care Team (Late st Contact Info) Description 11/16/2024 1:00 PM EST Office [place] [address] Paula Harris PA [facility] [place] [address] 01/26/2025 9:50 AM EDT Appointment Mammography/[place] [phone] Joan Deutsch APRN [facility] [place] [address] 01/26/2025 10:50 AM EDT Office [place] [address] Joan Deutsch APRN [facility] [place] [address] documented as of this encounter Visit Diagnoses Not on filedocumented in this encounter Care Teams Cement Boat And Barge Loader Relationship Specialty Start Date End Date Mairluz Watts MD [address] [place], [place] [address]Y [address] [place] [address] PCP - General 08/22/10 documented as of this encounter
--- OUTSIDE RECORDS SUMMARY | 2024-05-18 20:01 | XMS_ITS | Encounter Summary ---
[place] [address] Care Team Providers Care Flexible Shaft Winder Name Role Phone Mariluz Watts MD Primary Care Provider [phone] Reason for Visit * Reason Comments Left Hip Pain Left Knee Pain Encounter Details Date Type Department Care Team (Late st Contact Info) Description 04/30/2012 9:00 AM EDT Office [place] [address] Nick Ruiz MD [address] [place] [address] DJD (degenerative joint disease) of hip (Primary Dx) Discharge Disposition: Home Social History [...] Sign Reading Time Taken Comments Blood Pressure 112/70 04/30/2012 10:03 AM EDT Pulse - - Temperature - - Respiratory Rate - - Oxygen Saturation - - Inhaled Oxygen Concentration - - Weight 98.4 kg (217 lb) 04/30/2012 10:03 AM EDT Height 168.9 cm (5' 6.5) 04/30/2012 10:03 AM ED T Body Mass Index 34.5 04/30/2012 10:03 AM EDT documented in this encounter Progress Notes * Nick Ruiz MD - 04/30/2012 11:02 AM EDT Very pleasant 66-year-old female who 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 She comes back tosee me because she is increasingly limited by her left hip. She has nearly constant groin pain which is worse with activity, also has some other musculoskeletal issues including a left knee that shows medial compartment OA as well as degenerative midfoot joints in the left foot that will eventuallypotentially require an arthrodesis. She had radiation for breast cancer, has had no other interval c ardiac or pulmonary problems. She tells me she did have a echo at [facility] earlier this year, she has been recently diagnosed with hypermobility syndrome and she was under the impression that the echo was done for that reason. Social history: She lives alone, she has her son and oszmnjqv-ue-fie live in close by. She drives. She does not currently work. Hip Questionnaire Responses: myD-H Hip & Knee 04/30/2012 UCLA Activity Score 4 (Average Activity) MODEMS Satisfaction 100 VR12 - Physical Component Summary 20.97 VR12 - Mental Component Summary 52.38 Joint Infections No Bleeding Issues Yes Heart Issues No EQ5D - Mobility 2 (I have some problems in walking about ) EQ5D - Self Care 1 (I have no problems with self-care) EQ5D - Usual Activities 2 (I have some problems with performing my usual activities) EQ5D - Pain/Discomfort 2 (I have moderate pain or discomfort ) EQ5D - Anxiety/Depression 2 (I am moderately anxious or depressed) EQ5D - Overall Health 3 (Worse) History of present illness: Tells me that she is very limited in terms of her ambulation and that her life is limited because of left hip pain, stiffness, and poor range of motion. She has difficultydonning and doffing socks, pain is mostly in the groin and radiates down to the thigh and knee. Shehas pain at night, stiffness when first getting up, still doesn't use any ambulatory assistive devices. She is maximized her anti-inflammatory dose and takes 600 mg tablets of ibuprofen 3-4 times daily. She has had a cortisone injection into the left hip which gave her excellent relief for about a month, after that quickly wore off. She is modified her activities, she has been doing abductor stren gthening exercises and by walking her dog daily, tries to walk several miles a day a low she tells me it's markedly painful. The right hip replacement seems to be functioning well, occasionally she gets some right buttock and lateral hip aching. Examination: Looks very well, mood is pleasant, walks with a stable gait but has a slight limp to the left side. Leg lengths are essentially equal, skin is normal, musculature is symmetrical, no visible or palpable adenopathy. Sensation distally and motor function are normal, good pulses. Logroll of the left hip provokes pain compared to the right side. Negative straight leg raise. Left hip flexion becomes painful at 90??, internal rotation only about 5?? with resultant groin pain, external rotation about 30?? his relatively comfortable. Abduction results in groin pulling about 35??, adduction about 15??. Spine is straight, nontender through the lumbar regions but painful on palpation of the SI joints. Abdomen is mildly obese, respirations are nonlabored. Radiographs: There has been marked narrowing of the left hip compared to her radiographs from 2005,although she is not yet akop-jt-yxgx she has lost approximately 50% of her cartilage. There is not significant osteophytosis or subchondral sclerosis, giving us almost the appearance of the hip that has an inflammatory arthropathy component. Plan: We talked at length about treatment options, we talked about nonoperative options and after athorough discussion of the remaining options available I agree with that is very realistic do expect that subsequent cortisone injections will be more effective in terms of their duration than the first. We talked about the left knee which bothers her but not nearly so much as the hip. We also talked about her foot for which she apparently need a fusion. She would like to go ahead with a left hipreplacement, she understands the benefits and risks, she is happy with her right hip replacement, and she fully understands the benefits, risks and alternatives of all options. documented in this encounter Plan of Treatment Upcoming Encounters Date Type Department Care Team (Late st Contact Info) Description 11/16/2024 1:00 PM EST Office [place] [phone] Paula Harris PA [facility] [place] [address] 01/26/2025 9:50 AM EDT Appointment Mammography/[place] [phone] Joan Deutsch APRN [facility] [place] [address] 01/26/2025 10:50 AM EDT Office [place] [phone] Joan Deutsch APRN [facility] [place] [address] documented as of this encounter Procedures Procedure Name Priority Date/Time Associated Diagnosis Comments TOTAL HIP ARTHROPLASTY, ANTERIOR APPROACH Routine 04/30/2012 10:55 AM EDT documented in this encounter Results [...] active cardiopulmonary pathology. Authorizing Provider Result Froy Ruiz MD IMG DX ORDERABLES * EKG 12 Lead (07/08/2012 1:37 PM EDT) Ventricular rate 68 BPM MUSE SYSTEM Atrial Rate 68 BPM MUSE SYSTEM P-R Interval 194 ms MUSE SYSTEM QRS Duration 70 ms MUSE SYSTEM Q-T Interval 388 ms MUSE SYSTEM QTC Calculated (Bezet) 412 ms MUSE SYSTEM Calculated P [place] 58 degrees MUSE SYSTEM Calculated R [place] -26 degrees MUSE SYSTEM Calculated T [place] 37 degrees MUSE SYSTEM INTERPRETATION Sinus rhythm with marked sinus arrhythmia Otherwise normal ECG When compared with ECG of 13-MAR-2010 09:34, No significant change was found Confirmed by MD Miah, Alexandro (57) on 07/08/2012 3:36:13 PM MUSE SYSTEM 07/08/2012 1:37 PM EDT 07/08/2012 3:36 PM EDT Narrative Authorizing Provider Result Froy Ruiz MD ECG ORDERABLES MUSE SYSTEM * Urine culture Clean Catch Urine (07/08/2012 1:07 PM EDT) Urine Culture ? Patient Name: DIAMOND GAMING ?Ordered By: NICK RUIZ ? MR#: [id number] ?LOC: ??4V ? /Sex: ??1945 (66 years), [...] Resulting Agency Comment Spec In Lab Nick Ruiz MD MICROBIOLOGY - GENER AL ORDERABLES [facility] * Urinalysis with microscopic (07/08/2012 [...] Urine Dipstick Clear Clear [facility] Specific [place] Urine Automated 1.017 1.002 - 1.030 [facility] Color, Urine Dipstick Yellow Yellow [facility] RBC, Urine <1 0 - 4 /HPF [facility] WBC, Urine 1 0 - 5 /HPF [facility] Urine specimen (specimen) 07/08/2012 1:07 PM EDT 07/08/2012 1:21 PM EDT Narrative Resulting Agency Comment Spec In Lab Nick Ruiz MD URINE ORDERABLES [facility] * Hemoglobin A1c (07/08/2012 12:50 PM EDT) Hemoglobin A1c 5.5 4.3 - 6.1 % [facility]ENNI[facility] Estimated Average Glucose 111 mg/dL [facility] Comment: eAG equivalents for HbA1c percentages: HbA1c(%) [...] ADA website: ??http://professional.diabetes.org/glucosecalculator.aspx Reference: Ronn JUAREZ, Chase J, Shagufta R, et al. ??Translating the A1C assay into estimated average glucose values. ??Diabetes Care 2008:31(8):0098-5415. Blood specimen (specimen) 07/08/2012 12:50 PM EDT 07/08/2012 1:21 PM EDT Narrative Resulting Agency Comment Spec In Lab Nick Ruiz MD CHEMISTRY ORDERABLES Performing Organization Address [facility] Phone Number [facility] * Protein, total (07/08/2012 12:50 PM EDT) [facility] Protein, Total 6.9 6.4 - 8.3 gm/dL [facility] Blood specimen (specimen) 07/08/2012 12:50 PM EDT 07/08/2012 1:21 PM EDT Narrative Resulting Agency Comment Spec In Lab Nick Ruiz MD CHEMISTRY ORDERABLES Performing Organization Address [facility] Phone Number [facility] * Albumin Level (07/08/2012 12:50 PM EDT) [facility] Albumin 4.7 3.2 - 5.2 gm/dL [facility] Blood specimen (specimen) 07/08/2012 12:50 PM EDT 07/08/2012 1:21 PM EDT Narrative Resulting Agency Comment Spec In Lab Nick Ruiz MD CHEMISTRY ORDERABLES Performing Organization Address [facility] Phone Number [facility] * High Sensitivity CRP (07/08/2012 12:50 PM EDT) C-Reactive Protein High Sensitivity 0.9 mg/L [facility] Comment: Interpretations: 1) For cardiac risk assessment, [...] and Cardiovascular Disease. ??Circulation 2003; 107:499-511 2. Ridker PM. ??Clinical applications of C-reactive protein for cardiovascular disease detection and prevention. ??Circulation 2003; 107:363-369 Blood specimen (specimen) 07/08/2012 12:50 PM EDT 07/08/2012 1:21 PM EDT Narrative Resulting Agency Comment Spec In Lab Nick Ruiz MD CHEMISTRY ORDERABLES [facility] * Sedimentation rate (07/08/2012 12:50 PM EDT) Sedimentation Rate Automated 6 0 - 20 mm/hr [facility] Blood specimen (specimen) 07/08/2012 12:50 PM EDT 07/08/2012 1:21 PM EDT Narrative Resulting Agency Comment Spec In Lab Authorizing Provider Result Froy Ruiz MD HEMATOLOGY ORDERABLE S Performing Organization Address [facility] de Phone Number [facility] * APTT (07/08/2012 12:50 PM EDT) Partial Thromboplastin Time 30 25 - 35 sec [facility] Comment: Recommended therapeutic PTT range for full dose unfractionated heparin is 80-114 seconds. Blood specimen (specimen) 07/08/2012 12:50 PM EDT 07/08/2012 1:21 PM EDT Narrative Resulting Agency Comment Spec In Lab Authorizing Provider Result Froy Ruiz MD HEMATOLOGY ORDERABLE S Performing Organization Address [facility] Phone Number [facility] * Prothrombin Time (07/08/2012 12:50 PM EDT) Prothrombin Time 12.6 11.9 - 14.7 sec [facility] Comment: [facility] Transfusion Committee Guidelines: INR less than 2.0, PTT less than OR equal to 43.5 seconds, or Fibrinogen greater than or equal to 100 mg/dl indicate adequate procoagulant activity for hemostasis in patients without underlying bleeding disorders. International Normalization Ratio 0.9 0.9 - 1.1 [facility] Blood specimen (specimen) 07/08/2012 12:50 PM EDT 07/08/2012 1:21 PM EDT Narrative Resulting Agency Comment Spec In Lab Authorizing Provider Result Froy Ruiz MD HEMATOLOGY ORDERABLE S Performing Organization Address [facility] de Phone Number [facility] * Basic Metabolic Panel (non-fasting) (07/08/2012 12:50 PM EDT) Glucose 93 60 - 199 mg/dL [facility] Comment:Diabetes: >=200 mg/d L plus symptoms Blood Urea Nitrogen 14 8 - 18 mg/dL [facility] Creatinine 0.74 0.70 - 1.20 mg/dL [facility] Comment: Please note that the pediatric reference intervals supplied above were not validated at [facility]. Results from pediatric patients should be interpreted in conjunction to the patient's age, height and muscle mass. Sodium 140 135 - 145 mmol/L CERNER [...] Resulting Agency Comment Spec In Lab Nick Ruiz MD CHEMISTRY ORDERABLES [facility] * CBC (with Diff) (07/08/2012 12:50 PM [...] Resulting Agency Comment Spec In Lab Nick Ruiz MD HEMATOLOGY ORDERABLE S [facility] documented in this encounter Visit Diagnoses Diagnosis DJD (degenerative joint disease) of hip- Primary Osteoarthrosis, unspecified whether generalized or localized, pelvic region and thigh DJD (degenerative joint disease) of hip Osteoarthrosis, unspecified whether generalized or localized, pelvic region and thigh documented in this encounter Care Teams Flexible Shaft Winder Relationship Specialty Start Date End Date Mariluz Watts MD [address] [place] [address] PCP - General 08/22/10 documented as of this encounter
--- OUTSIDE RECORDS SUMMARY | 2024-05-18 20:01 | XMS_ITS | Encounter Summary ---
[place] [address] Care Team Providers Care Irrigation Installation Specialist Name Role Phone Mariluz Watts MD Primary Care Provider [phone] Reason for Visit * Reason Onset Date Comments Other 04/01/2012 Disability Paper work/[facility] Encounter Details Date Type Department Care Team (Late st Contact Info) Description 04/01/2012 Telephone Hematology [place] [address] Gemini Lawrence RN [facility] Social History Tobacco Use Types Packs/Day Years [...] Telephone Encounter - Gemini Lawrence RN - 04/01/2012 8:59 AM EDT [facility] requested paperwork to evaluate a claim for Long-term Disability All records from 11/02/2011 copied. [facility] Disclosure Release form signed by patient. No genetic information included. Medical records mailed to: [employer] [facility] Disability Claim Office [facility] [address] [address] [place] [address] Copy filed under Disabilty. documented in this encounter Plan of Treatment Upcoming Encounters Date Type Department Care Team (Late st Contact Info) Description 11/16/2024 1:00 PM EST Office [place] [phone] Paula Harris PA [facility] [place] [address] 01/26/2025 9:50 AM EDT Appointment Mammography/[place] [phone] Joan Deutsch CHEMICAL PREPARER [facility] [place] [place] [address] 01/26/2025 10:50 AM EDT Office [place] [phone] Joan Deutsch CHEMICAL PREPARER [facility] [place] [place] [address] documented as of this encounter Visit Diagnoses Not on filedocumented in this encounter Care Teams Irrigation Installation Specialist Relationship Specialty Start Date End Date Mariluz Watts MD [address] [place] [address] PCP - General 08/22/10 documented as of this encounter
--- OUTSIDE RECORDS SUMMARY | 2024-05-18 20:01 | XMS_ITS | Encounter Summary ---
[place] [address] Care Team Providers Care Usability Architect Name Role Phone Mariluz Watts MD Primary Care Provider [phone] Encounter Details Date Type Department Care Team (Latest Contact Info) Description 07/22/2012 1:26 PM EDT - 07/25/2012 9:16 PM EDT Hospital Encounter 3 [place] [address] Nick Ervin MD [address] [place] [address] Shaunna Discharge Disposition: Home Social History Tobacco Use [...] Sign Reading Time Taken Comments Blood Pressure 108/65 07/23/2012 10:00 AM EDT Pulse 91 07/23/2012 10:00 AM EDT Temperature 36.7 ??C (98.1 ??F) 07/23/2012 10:00 AM E DT Respiratory Rate 18 07/23/2012 10:00 AM EDT Oxygen Saturation 95% 07/23/2012 10:00 AM EDT Inhaled Oxygen Concentration - [...] a bowel movement. You can take an rhka-tmr-llzjggm medication, miralax if needed to combatconstipation. 2. [...] of this encounter Progress Notes * Marily Murphy RN - 07/25/2012 6:54 PM EDT IV removed. My assessment remains unchanged from my previous assessment. Pt denies chest pain and shortness of breath. Discussed pain management with patient, pain tolerable. Pt has all belongings. Pt received discharge summary and prescriptions. These were reviewed. All questions answered. Pt encouraged to call with questions or concerns. Report called and given to VNA. * Holli Llanos PT - 07/25/2012 5:11 PM EDT Physical Therapy Note Visit #3 Patient Profile: Pt. is a 66 y.o. female admitted on 07/22/2012 by Nick Rush MD for L ARSLAN anterior Hueter approach w/ [place] table. Pt has a cerclage wire for intra-op calcar fracture so limited to 50% WB L LE. 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 She used the leg media senior recruiter to assist L LE back into bed [...] POD#3 L ARSLAN anterior Heuter approach w/ [place] table. Pt has a cerclage wire for [...] x Pt will move supine<>sit w/ leg media senior recruiter (I). x Pt will move sit<>stand (I) [...] Total timed treatment: 20 minutes functional activity HOLLI LLANOS PT Pager: [phone] * Hero Dsouza - 07/25/2012 2:13 PM EDT Gis Geographer Encounter Note Patient Name: Diamond Gaming : [id number] MR#: [id number] Admit Date: 07/22/2012 1:26 PM Hospital Day 3 days Narrative:Visited to introduce and assess acceptance of Gis Geographer services. Assessment:Patient coping positively with stresses of illness/hospitalization at this time. Pt was in the chair and in good spirits. Pt is living by herself an hs children and grand children. 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 Intervention and Outcome:Gis Geographer services accepted. Conversation to build trusting relationship.Provided [...] re: transfer. Supervision, extra time, and leg media senior recruiter needed for sit to supine transfer. Supervision [...] minutes; there ex functional x 2 Pager: [phone] ELLA MOYER Occupational Therapy Rehabilitation Department * [...] PA notified. Will continue to monitor. * Holli Llanos PT - 07/24/2012 10:06 PM EDT Physical Therapy Note Visit #2 Patient Profile: Pt. is a 66 y.o. female admitted on 07/22/2012 by Nick Rush MD for L ARSLAN anterior Hueter approach w/ [place] table. Pt has a cerclage wire for intra-op calcar fracture so limited to 50% WB L LE. 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 ?? She used leg media senior recruiter and almost had L LE up and [...] POD#2 L ARSLAN anterior Heuter approach w/ [place] table. Pt has a cerclage wire for [...] x Pt will move supine<>sit w/ leg media senior recruiter (I). x Pt will move sit<>stand (I) [...] her equip from attic. Total treatment time: 28 minutes Total timed treatment: 28 minutes functional activity HOLLI LLANOS PT Pager: [phone] * Jamee Cabrera OTA - 07/24/2012 4:27 [...] HOB elevated, extra time, and using leg media senior recruiter to assist LLE. Supervision sit to stand. [...] minutes; there ex functional x 2 Pager: [phone] ELLA MOYER Occupational Therapy Rehabilitation Department * Joan Carballo RN - 07/23/2012 10:30 PM EDT Assumed care of patient from [phone]. AOX4. HRR. VSS. Pt denies SOB, chest pain, N/V, numbness ortingling. Pt tolerating PO. ABD soft, non-tender. Voiding independently. Pain rated at 4/10 and tolerable. L hip DSG C/D/I. Call christensen within reach. Will continue to monitor. * Pb Michelle - 07/23/2012 9:26 PM EDT Orthopaedic [...] with AP Pelvis and Lateral Hip X-Rays. PB MICHELLE MD 07/23/2012 * Miquel Flores RN - 07/23/2012 4:14 PM EDT S: I am not having a good day. O: Chart reviewed and met with pt and friend. Pt had L ARSLAN (anterior approach) with intra-op fx yesterday by Dr Ervin. 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 Pt had R ARSLAN In 03/04. Pt denies the need for in-pt rehab and feels she can manage at home with VNA. Pt requests [facility] for services. Pt will be on RIvaroxaban [...] with AP Pelvis and Lateral Hip X-Rays. PB MICHELLE MD 07/23/2012 Attending Note. I have [...] lives alone. Nick Ervin MD * Morgan Maher RN - 07/23/2012 1:09 AM EDT Patient [...] continue to monitor. * Discharge Summary - Dewayne, Francheska E, PA - 07/24/2012 1:11 PM EDT Department [...] S/P hip replacement SURGERY DATE: 03/06/2005 NICK ERVIN MD Surgical Procedure Performed: Right total hip arthroplasty, cementless, djzbnsf-tm-idgazia Components Used: Nina Trident 52 shell outer [...] 07/22/2012 Surgeons: NICK ERVIN MD - Primary PB MICHELLE MD - Resident-Surgeon Francesco Procedure: LEFT [...] a bowel movement. You can take an wpuf-fgi-dmysuiq medication, miralax if needed to combatconstipation. 2. [...] PM Nick Ervin MD [facility] [phone] None Joint Appt Health Question Three C Orth[facility] [phone] None Future Orders Please Complete By Expires Referral to Home Health [[id number] CPT(R)] Process Instructions: Scheduling Instructions: Comments: [facility] PHONE: [phone] FAX: [phone] DOCUMENTATION FOR VNA SERVICES (INCLUDING THOSE PATIENTS WITH MEDICARE COVERAGE REQUIRING HOME VNA SERVICES AND/OR HOSPICE SERVICES) Diamond [employer] Discharge to own home: [address] [place] [phone] (home) No relevant phone numbers on file. In discussion with the attending physician, it is certified that this patient is under their care and that they, or a nurse practitioner, clinical nurse specialist or physician's marketing assistant retail division who is working directly with them, had [...] Questions: Responses: Agency name and contact information [facility] Patient location post discharge home What services are requested Start date Responsible MD post discharge contact info Provider Contact Information: Primary Care Provider: MARILUZ WATTS MD [phone] Hospital Attending: Nick Ervin MD Department of Orthopaedic Surgery Joints: [phone] Signed: MORENA AWAD 07/25/2012 * Plan of [...] OOB.LISA BUCIO, RN * Initial Assessments - Holli Llanos, PT - 07/23/2012 4:33 PM EDT Physical Therapy Evaluation Total Hip Arthroplasty Patient Profile: Pt. is a 66 y.o. female admitted on 07/22/2012 by Nick Rush MD for L ARSLAN anterior Hueter approach w/ [place] table. Pt has a cerclage wire for [...] Procedure Date: 08/18/2006 ??? Created by interface [id number] Procedure Date: 01/27/2007 ??? Created by interface [...] >4.0CM, TRUNK performed by TIRSO CHAUDHARI at [facility] MAIN OR ??? Colonoscopy, diagnostic 02/29/2012 COLONOSCOPY, DIAGNOSTIC performed by RAJAT KUO at [facility] ENDOSCOPY ??? 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 Gait pattern: Tbts-tf-fbiw and cautious about not putting too much [...] POD#1 L ARSLAN anterior Heuter approach w/ [place] table. Pt. tolerated today???s session fairly well [...] 25 feet Goals: (to be achieved by 07-24-12) Goal met? Yes No Pt will be knowledgeable of prescribed exercises. x Pt will be knowledgeable and compliant with 50% WB precautions. x Pt will move supine<>sit w/ leg media senior recruiter (I). x Pt will move sit<>stand (I) [...] minutes Evaluation Total timed treatment: 0 minutes HOLLI LLANOS, PT Pager: [phone] * Initial Assessments - Aminta Garvin, OT - 07/23/2012 2:45 PM EDT [...] dog. 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 Walk in shower [...] minutes Total timed interventions: 0 minutes Pager: [phone] AMINTA GARVIN OT 07/23/2012 Occupational Therapy Rehabilitation Department * Plan of Care - Morgan Maher RN - 07/23/2012 12:59 AM EDT Problem: [...] Date: Jul 2211-11 Surgeon: Nick Ervin MD Milk Truck Driver: Pb Michelle MD Anesthesia: GET Pre-operative diagnosis: Left hip osteoarthritis Body mass index is 35.35 kg/(m^2). Post-operative diagnosis: Same Surgical Procedure Performed: Injection left hip with 10 cc marcaine 0.25% with epi, into skin and subcutaneous tissues (CPT [id number]) left total hip arthroplasty, anterior Hueter approach with [place] table (CPT code 44551) Left hip intraoperative radiologic examination (CPT code 37553) Amicar infusion (5 g IV load, then 1g/hr x 3 hrs) Components Used: Spurger Accolade stem, size 4, 127 degrees Trident [...] wasperformed. Patient was positioned supine on the [place] table, both feet and ankles were padded [...] liner was placed and impacted according to court attendant's instructions. Any impinging osteophytes were removed. The [...] and laterally. At the same time, the marketing assistant retail division leaned against the thigh to optimize femoral [...] Implant Name Type Inv. Item Serial No. Airbrush Artist Photography Lot No. LRB No. Used Action SHELL,ACETABULAR,TRIDENT,PSL,S ([id number]) (AUTOREQ) - [id number] IMPLANTS SHELL,ACETABULAR,TRIDENT,PSL,S ([id number]) (AUTOREQ) [employer] - [id number] Left 1 Implanted INSERT,TRIDENT,ALUMINA,0,DEG,3 ([id number]) (AUTOREQ) - [id number] IMPLANTS INSERT,TRIDENT,ALUMINA,0,DEG,3 ([id number]) (AUTOREQ) [employer] - [id number] Left 1 Implanted STEM,FEM,ACCOLADE,127,DEG,NECK ([id number]) (AUTOREQ) - [id number] IMPLANTS STEM,FEM,ACCOLADE,127,DEG,NECK ([id number]) (AUTOREQ) [employer] - [id number] Left 1 Implanted CABLE,SS,CRMP,1.7M938TT,STR ([id number]) - [id number] IMPLANTS CABLE,SS,CRMP,1.0B325BP,STR ([id number]) [facility] - [id number] Left 1 Implanted HEAD,FEM,ALUMINA,V40,-4X32MM ([id number]) (AUTOREQ) - [id number] IMPLANTS HEAD,FEM,ALUMINA,V40,-4X32MM ([id number]) (AUTOREQ) [employer] - [id number] Left 1 Implanted documented in this encounter Plan of Treatment Upcoming Encounters Date Type Department Care Team (Late st Contact Info) Description 11/16/2024 1:00 PM EST Office Visit General Surgery at [place] [phone] Paula Harris PA [facility] [place] [address] 01/26/2025 9:50 AM EDT Appointment Mammography/DXA at [place] [phone] Joan Deutsch APRN [facility] [address] 01/26/2025 10:50 AM EDT Office Visit [place] [phone] Joan Deutsch DETASSELING CREW SUPERVISOR [facility] [address] Pending Results Name Type Priority Associated Diagnoses [...] intervals supplied above were not validated at [facility]. Results from pediatric patients should be interpreted [...] Lab Nick Ervin MD CHEMISTRY ORDERABLES [facility] * (ABNORMAL) CBC (with Diff) (07/25/2012 4:29 AM EDT) White Blood Cell 7.0 4.0 - 10.0 x10(3)/mc L CERNER MILLENNIUM Red Blood Cell 2.77(L) 3.93 - 5.22 [...] MILLENNIUM * (ABNORMAL) Basic Metabolic Panel (non-fasting) (07/24/2012 3:53 AM EDT) [facility] Glucose 127 60 - 199 mg/dL CERNER MILLENNIUM Comment:Diabetes: >=200 mg/d L plus symptoms Blood Urea Nitrogen 16 8 - 18 mg/dL CERNER MILLENNIUM Creatinine 0.58(L) 0.70 - 1.20 mg/dL CERNER MILLENNIUM Comment: Please note that the pediatric reference intervals supplied above were not validated at [facility]. Results from pediatric patients should be interpreted [...] Lab Nick Ervin MD CHEMISTRY ORDERABLES [facility] * (ABNORMAL) CBC (with Diff) (07/24/2012 3:53 [...] Nick Ervin MD HEMATOLOGY ORDERABLE S CERNER MANISHAENNIUM * (ABNORMAL) DIFFERENTIAL, AUTOMATED (07/23/2012 4:36 AM [...] EDT Nick Ervin MD HEMATOLOGY ORDERABLE S [facility] * (ABNORMAL) Basic Metabolic Panel (non-fasting) (07/23/2012 4:36 AM EDT) [facility] Signature Glucose 148 60 - 199 mg/dL CERNER MILLENNIUM Comment:Diabetes: >=200 mg/d L plus symptoms Blood Urea Nitrogen 14 8 - 18 mg/dL CERNER MILLENNIUM Creatinine 0.51(L) 0.70 - 1.20 mg/dL CERNER MILLENNIUM Comment: Please note that the pediatric reference intervals supplied above were not validated at [facility]. Results from pediatric patients should be interpreted [...] Ervin MD CHEMISTRY ORDERABLES Performing Organization Address [facility] Co de Phone Number CERRIGO MAYERIUM * (ABNORMAL) CBC (with Diff) (07/23/2012 4:36 [...] MD HEMATOLOGY ORDERABLE S Performing Organization Address [facility]/ZIP Co de Phone Number VALERIE MAYERIUM [...] HEMATOLOGY ORDERABLE S CERNER MILLENNIUM * (ABNORMAL) CBC (with Diff) (07/22/2012 6:30 [...] 6:21 PM EDT) Surgical Pathology Report ? [facility] ? Provider: ?? NICK ERVIN ? Pt. Name: ?? DIAMOND GAMING ? Acc #: ?[id number] ?Pt. ? Col Date: ?? 07/22/2012 ?/Sex: ?[id number],(66 years),Female ? Rec Date: ?? 07/22/2012 ?LOC: ?3WST ? SURGICAL PATHOLOGY ? ---Pathologic Diagnosis--- ? Left femoral head, osteoarthritis. ?Gross surgical pathology examination. ? CR-0 ? 07/24/12 ? AJE ? 07/25/12 Verified by: ? Partha DO, Marilu Marinelli ? Pathologist ? (Electronic Signature) ? The [...] MD PATHOLOGY/CYTOLOGY O JOSELUIS Performing Organization Address [facility] de Phone Number VALERIE MAYERIUM * Specimen to Pathology (surgical or derm) (07/22/2012 4:18 PM EDT) AP Specimen 07/22/2012 4:18 PM EDT 07/22/2012 4:18 PM EDT Narrative CERNER MILLENNIUM - 07/22/2012 4:18 PM EDT Specimen requisition ordered. ??Separate Pathology report to follow Nick Ervin MD PATHOLOGY/CYTOLOGY O JOSELUIS Performing Organization Address [facility] de Phone Number VALERIE MAYERIUM documented in this encounter Visit Diagnoses Diagnosis s/p L ATHA with Dr. Ervin 07/22/12- Primary Hip joint replacement by other means Shaunna documented in this encounter Administered Medications Inactive Administered Medications - up to 3 most recent administrations Medication Order MAR Action Action Date Dose Rate Site acetaminophen (TYLENOL) tablet 1,000 mg 1,000 mg, Oral, EVERY 8 HOURS SCHEDULED, First dose on Sat07/22/12 at 2200, Until Discontinued, Maximum dose of acetaminophen is 4000 mg from all sources in 24 hours., Recovery (Recovery-Hospital Unit), Routine Given 07/25/2012 1:16 PM EDT 1,000 mg Given 07/25/2012 5:39 AM EDT 1,000 mg Given 07/24/2012 9:23 PM EDT 1,000 mg aminocaproic acid (AMICAR) 5 g in dextrose 5% 250 mL infusion 1 g/hr (rounded to 50 mL/hr), Intravenous, CONTINUOUS, Starting on Sat07/22/12 at 1515, Until Sat07/22/12 at 2046 New Bag 07/22/2012 3:15 PM EDT 1 g/hr 50 mL/hr aminocaproic acid (AMICAR) 5 g in dextrose 5% 270 mL IV bolus 5 g, Intravenous, ONCE, 1 dose, On Sat07/22/12 at 1515, Administer over 60 Minutes New Bag 07/22/2012 3:29 PM EDT 5 g 270 mL/hr anastrozole (ARIMIDEX) tablet 1 mg 1 mg, Oral, DAILY, First dose on Sat07/23/12 at 0900, Until Discontinued, Recovery (Recovery-Hospital Unit), Routine Given 07/25/2012 8:51 AM EDT 1 mg Given 07/24/2012 8:31 AM EDT 1 mg Given 07/23/2012 9:00 AM EDT 1 mg bisacodyl (DULCOLAX) suppository 10 mg 10 mg, Rectal, DAILY PRN, Starting on Sat07/22/12 at 2046, Until Sat07/25/12 at 2320, Constipation, Administer if needed per patient's routine or if no bowel movement within 48 hours, Recovery (Recovery-Hospital Unit), Routine Given 07/25/2012 8:51 AM EDT 10 mg ceFAZolin (ANCEF) 1g in dextrose 5% 50mL 1,000 mg (1 g), Intravenous, EVERY 8 HOURS, 3 doses, First dose on Sat07/22/12 at 1845, Last dose on Sat07/23/12 at 1045, Administer over 30 Minutes, For 3 doses postoperatively. Adjust to 8 hours from intraoperative dose., Recovery (Recovery-Hospital Unit), Indication for (Active or Suspected): Prophylaxis New Bag 07/23/2012 5:00 PM EDT 1,000 mg 100 mL/ hr New Bag 07/23/2012 8:00 AM EDT 1,000 mg 100 mL/hr New Bag 07/23/2012 12:00 AM EDT 1,000 mg 100 mL/hr celecoxib (celeBREX) capsule 200 mg 200 mg, Oral, ONCE, 1 dose, On Sat07/22/12 at 1400, Administer on arrival to Same Day Program, Day of Surgery (Day of Procedure), Routine Given 07/22/2012 1:57 PM EDT 200 mg cholecalciferol (Vitamin D3) tablet 400 Units 400 Units, Oral, DAILY, First dose on Sat07/23/12 at 0900, Until Discontinued, Recovery (Recovery-Hospital Unit), Routine Given 07/25/2012 8:51 A M EDT 400 Units Given 07/24/2012 8:32 AM EDT 400 Units Given 07/23/2012 9:00 AM EDT 400 Units citalopram (celeXA) tablet 40 mg 40 mg, Oral, DAILY, First dose on Sat07/23/12 at 0900, Until Discontinued, Recovery (Recovery-Hospital Unit), Routine Given 07/25/2012 8:51 AM EDT 40 mg Given 07/24/2012 8:32 AM EDT 40 mg Given 07/23/2012 9:00 AM EDT 40 mg cyanocobalamin (vitamin B-12) tablet 50 mcg 50 mcg, Oral, DAILY, First dose on Sat07/23/12 at 0900, Until Discontinued, Recovery (Recovery-Hospital Unit), Routine Given 07/25/2012 8:51 AM EDT 5 0 mcg Given 07/24/2012 8:32 AM EDT 50 mcg Given 07/23/2012 9:00 AM EDT 50 mcg erythromycin (CAIN-TAB) EC tablet 500 mg 500 mg, Oral, 2 TIMES DAILY, First dose on Sat07/22/12 at 2115, Until Discontinued, Therapeutic interchange acceptable, Recovery (Recovery-Hospital Unit), Routine Given 07/25/2012 8:51 AM EDT 500 mg Given 07/24/2012 9:23 PM EDT 500 mg Given 07/24/2012 8:32 AM EDT 500 mg esomeprazole (NEXIUM) capsule 40 mg 40 mg, Oral, DAILY, First dose on Sat07/23/12 at 0900, Until Discontinued, Recovery (Recovery-Hospital Unit), Routine Given 07/25/2012 8:51 AM EDT 40 mg Given 07/24/2012 8:32 AM EDT 40 mg Given 07/23/2012 9:00 AM EDT 40 mg HYDROmorphone (DILAUDID) 2 mg/mL injection 1 dose, Starting on Sat07/22/12 at 1810, Until Sat07/22/12 at 1830, KEYANA ARGUETA: Cabinet Override Given 07/22/2012 6:30 PM EDT mg HYDROmorphone (DILAUDID) injection 0.2-0.4 mg 0.2-0.4 mg, Intravenous, EVERY 5 MIN PRN, Starting on Sat07/22/12 at 1815, Until Sat07/22/12 at 2027, Pain, For moderate pain give: 0.2 mg every 5 minute prn For severe pain give: 0.4 mg every 5 minutes prn Maximum dose: 4 mg per hour Hold for respiratory rate less than 10 per minute., PACU Recovery, Routine Given 07/22/2012 7:30 PM EDT 0.4 mg Given 07/22/2012 7:10 PM EDT 0.4 mg Given 07/22/2012 6:19 PM EDT 0.2 mg lactated ringers infusion 1,000 mL 1,000 mL, at 100 mL/hr, Intravenous, CONTINUOUS, Starting on Sat07/22/12 at 1400, Until Sat07/22/12 at 2027, Day of Surgery (Day of Procedure) New Bag 07/22/2012 2:00 PM EDT 1,000 mLs 100 mL/hr lactated ringers infusion 125 mL/hr, Intravenous, CONTINUOUS, Starting on Sat07/22/12 at 1845, Until Sat07/23/12 at 0740, Recovery (Recovery-Hospital Unit) New Bag 07/23/2012 2:57 AM EDT 125 mL/hr 125 mL /hr New Bag 07/22/2012 6:30 PM EDT 125 mL/hr 125 mL/hr magnesium citrate oral solution 300 mL 300 mL, Oral, DAILY PRN, Starting on Sat07/22/12 at 2046, Until Sat07/25/12 at 2320, Constipation, May repeat times 1 in 4 hours, Recovery (Recovery-Hospital Unit), Routine Given 07/25/2012 1:15 PM EDT 300 mLs metroNIDAZOLE (METROGEL) 1 % gel Topical, DAILY, First dose on Sat07/23/12 at 0900, Until Discontinued, Recovery (Recovery-Hospital Unit) Given 07/25/2012 8:52 AM EDT Given 07/24/2012 8:32 AM EDT Given 07/23/2012 9:00 AM EDT multivitamin Ecug-Oq-YA-Min (THERAPEUTIC-M) 27-0.4 mg tablet 1 tablet 1 tablet, Oral, DAILY, First dose on Sat07/23/12 at 0900, Until Discontinued, Recovery (Recovery-Hospital Unit) Given 07/25/2012 8:52 AM EDT 1 tablet Given 07/24/2012 8:32 AM EDT 1 tablet Given 07/23/2012 9:00 AM EDT 1 tablet ondansetron (ZOFRAN) 4 mg/2 mL injection 1 dose, Starting on Sat07/23/12 at 0513, Until Sat07/23/12 at 0530, MORGAN MAHER: Cabinet Override ondansetron (ZOFRAN) injection 4 mg 4 mg, Intravenous, EVERY 8 HOURS PRN, Starting on Sat07/23/12 at 0504, Until Sat07/25/12 at 2320, Nausea, Routine Given 07/25/2012 8:50 AM EDT 4 mg Given 07/23/2012 2:10 PM EDT 4 mg Given 07/23/2012 5:30 AM EDT 4 mg OXYcodone (oxyCONTIN) CR tablet 10 mg 10 mg, Oral, ONCE, On Sat07/22/12 at 1400, 1 dose, Administer on arrival in Same Day Program, Day of Surgery (Day of Procedure) Given 07/22/2012 1:57 PM EDT 1 0 mg OXYcodone (ROXICODONE) immediate release tablet 10 mg 10 mg, Oral, EVERY 4 HOURS PRN, Starting on Sat07/22/12 at 1824, Until Sat07/25/12 at 1150, Pain, moderate pain, For Moderate pain. Do not exceed 15 mg in 4 hours. If pain not relieved, call provider., Recovery (Recovery-Hospital Unit), Routine Given 07/25/2012 8:51 AM EDT 10 mg Given 07/25/2012 1:56 AM EDT 10 mg Given 07/24/2012 9:22 PM EDT 10 mg OXYcodone (ROXICODONE) immediate release tablet 5 mg 5 mg, Oral, EVERY 4 HOURS PRN, Starting on Sat07/22/12 at 1824, Until Sat07/25/12 at 1150, Pain, mild pain, For Mild pain. Do not exceed 15 mg in 4 hours. If pain not relieved, call provider, Recovery (Recovery-Hospital Unit), Routine Given 07/23/2012 1:33 AM EDT 5 mg Given 07/22/2012 10:24 PM EDT 5 mg rivaroxaban (XARELTO) tablet 10 mg 10 mg, Oral, DAILY, First dose on Sat07/23/12 at 0900, Until Discontinued, Recovery (Recovery-Hospital Unit), Routine, Restricted anticoagulant, choose the most appropriate response: Approved indication of hip replacement DVT prophylaxis Given 07/25/2012 8:52 AM EDT 10 mg Given 07/24/2012 8:32 AM EDT 10 mg Given 07/23/2012 9:00 AM EDT 10 mg scopolamine (TRANSDERM SCOP) patch REMOVAL Transdermal, EVERY 72 HOURS, First dose on Sat07/25/12 at 1500, Until Discontinued, Remove Scopolamine Patch Given 07/25/2012 3:19 PM EDT 1 patch scopolamine (TRANSDERM-SCOP) 1.5 mg patch 1 patch 1 patch, Transdermal, EVERY 72 HOURS, First dose on Sat07/22/12 at 1515, Until Discontinued, Routine Given 07/25/2012 3:19 PM EDT 1 patch Given 07/22/2012 3:05 PM EDT 1 patch senna-docusate (PERICOLACE) 8.6-50 mg per tablet 1-4 tablet 1-4 tablet, Oral, 2 TIMES DAILY, First dose on Sat07/22/12 at 2115, Until Discontinued, Start with 1 tablet or liquid equivalent orally twice daily and titrate up to achieve: 1. One bowel movement at least every 48 hours, AND 2. Without straining, Recovery (Recovery-Hospital Unit), Routine Given 07/25/2012 8:52 AM EDT 2 tablets Given 07/24/2012 9:23 PM EDT 4 tablets Given 07/24/2012 8:33 AM EDT 4 tablets sodium chloride 0.9 % flush 5 mL 5 mL, Intravenous, EVERY 12 HOURS, First dose on Sat07/22/12 at 2115, Until Discontinued, Recovery (Recovery-Hospital Unit) Given 07/25/2012 8:52 AM EDT 5 mLs Given 07/24/2012 9:23 PM EDT 5 mLs Given 07/24/2012 8:33 AM EDT 5 mLs sodium phosphates (FLEET) 19-7 gram/118 mL rectal enema 1 Bottle 1 Bottle, Rectal, ONCE, 1 dose, On Sat07/25/12 at 1330, Routine Given 07/25/2012 12:47 PM EDT 1 Bottle tretinoin (RETIN-A) 0.05 % cream Topical, NIGHTLY, First dose on Sat07/23/12 at 0900, Until Discontinued, Recovery (Recovery-Hospital Unit) Given 07/24/2012 9:23 PM EDT Given 07/23/2012 8:16 PM EDT documented in this encounter Active and Recently Administered Medications Times are shown in EDT. Scheduled Medication Order 07/23/2012 07/24/2012 07/25/2012 acetaminophen (TYLENOL) tablet 1,000 mg 1,000 mg, Oral, EVERY 8 HOURS SCHEDULED, First dose on Sat07/22/12 at 2200, Until Discontinued, Maximum dose of acetaminophen is 4000 mg from all sources in 24 hours., Recovery (Recovery-Hospital Unit), Routine 0600 (Given - Provider: Morgan Maher, RN)1445 (Given - Provider: Thao Mathur V RN)2152 (Given - Provider: Joan Carballo RN) 0600 (Given - Provider: Lisa Bucio RN)1339 (Given - Provider: Marily [place], [place])2123 (Given - Provider: Mel [place], [place]) 0539 (Given - Provider: Mel Willett RN)1316 (Given - Provider: Marily Murphy RN) anastrozole (ARIMIDEX) tablet 1 mg (CANCELED) 1 mg, Oral, DAILY, First dose on Sat07/23/12 at 0900, Until Discontinued, Recovery (Recovery-Hospital Unit), Routine 0900 (Given - Provider: Thao Gaona RN) 0831 (Given - Provider: Marily Murphy RN) 0851 (Given - Provider: Marily [place], [place]) [...] Prophylaxis 0000 (New Bag - Provider: Morgan Maher RN - Comment: pre op dose given [...] Gaona RN) 0832 (Given - Provider: Marily [place], [place]) 0851 (Given - Provider: Marily Murphy RN) [...] RN) 0851 (Given - Provider: Marily Murphy RN)2099 (Due) esomeprazole (NEXIUM) capsule 40 mg (CANCELED) [...] (Given - Provider: Marily Murphy RN) multivitamin Wqyr-Yh-LQ-Min (THERAPEUTIC-M) 27-0.4 mg tablet 1 tablet (CANCELED) [...] DVT prophylaxis 09 (Given - Provider: Thao Kevan V, RN) 0832 (Given - Provider: Marily Murphy RN) 0852 (Given - Provider: Marily Murphy, RN) scopolamine (TRANSDERM SCOP) patch REMOVAL (CANCELED)(Linked Group 1) Transdermal, EVERY 72 HOURS, First dose on Sat07/25/12 at 1500, Until Discontinued, Remove Scopolamine Patch 1519 (Given - Provider: Marily Murphy, RN) scopolamine (TRANSDERM-SCOP) 1.5 mg patch 1 patch(Linked Group 1) 1 patch, Transdermal, EVERY 72 HOURS, First dose on Sat07/22/12 at 1515, Until Discontinued, Routine 1519 (Given - Provider: Marily [place], [place]) senna-docusate (PERICOLACE) 8.6-50 mg per tablet 1-4 [...] RN)2015 (Given - Provider: Joan Carballo RN) 0833 (Given - Provider: Marily Murphy RN)2122 (Given - Provider: Mel [place], [place]) 0852 (Given - Provider: Marily Murphy, NJ)2100 (Due) sodium chloride 0.9 % flush 5 mL (CANCELED) 5 mL, Intravenous, EVERY 12 HOURS, First dose on Sat07/22/12 at 2115, Until Discontinued, Recovery (Recovery-Hospital Unit) 0915 (Given - Provider: Thao Gaona RN)2015 (Given - Provider: Joan Carballo, [place]) 0833 (Given - Provider: Marily Murphy RN)2122 (Given - Provider: Mel [place], [place]) 0852 (Given - Provider: Marily Murphy, NJ)2100 (Due - Provider: Morgan Smith [facility]) sodium phosphates (FLEET) 19-7 gram/118 mL rectal enema 1 Bottle (COMPLETED) 1 Bottle, Rectal, ONCE, 1 dose, On Sat07/25/12 at 1330, Routine 1247 (Given - Provider: Marily Murphy, RN) tretinoin (RETIN-A) 0.05 % cream (CANCELED) Topical, NIGHTLY, First dose on Sat07/23/12 at 0900, Until Discontinued, Recovery (Recovery-Hospital Unit) 2015 (Given - Provider: Joan Carballo, RN) 212 (Given - Provider: Mel Willett, [place]) 2100 (Due - Provider: Morgan Smith [facility]) Continuous Medication Order 07/23/2012 07/24/2012 07/25/2012 lactated ringers infusion (CANCELED) 125 mL/hr, Intravenous, CONTINUOUS, Starting on Sat07/22/12 at 1845, Until Sat07/23/12 at 0740, Recovery (Recovery-Hospital Unit) 0257 (New Bag - Provider: Morgan Maher, RN) PRN Medication Order 07/23/2012 07/24/2012 07/25/2012 [...] Unit), Routine 0851 (Given - Provider: Marily Murphy, RN) HYDROmorphone (DILAUDID) tablet 2-4 mg 2-4 [...] Routine 1315 (Given - Provider: Marily Murphy, RN) ondansetron (ZOFRAN) injection 4 mg (CANCELED) 4 mg, Intravenous, EVERY 8 HOURS PRN, Starting on Sat07/23/12 at 0504, Until Sat07/25/12 at 2320, Nausea, Routine 0517 (Not Given - Provider: Morgan Maher, RN - Reason: Entered in Error)0530 (Given - Provider: Morgan Maher, RN)1410 (Given - Provider: Thao Mathur V RN) 0850 (Given - Provider: Marily Murphy, RN) OXYcodone (ROXICODONE) immediate release tablet 10 mg (CANCELED)(Linked Group 3) 10 mg, Oral, EVERY 4 HOURS PRN, Starting on Sat07/22/12 at 1824, Until Sat07/25/12 at 1150, Pain, moderate pain, For Moderate pain. Do not exceed 15 mg in 4 hours. If pain not relieved, call provider., Recovery (Recovery-Hospital Unit), Routine 0133 (See Alternative - Provider: Morgan Maher, NJ)0452 (Given - Provider: Morgan Maher, RN)0935 (Given - Provider: Thao Mathur V, RN)1850 (Given - Provider: Thao Gaona RN) 0122 (Given - Provider: Lisa Bucio, NJ)0518 (Given - Provider: Lisa Bucio, NJ)1212 (Given - Provider: Marily Murphy, NJ)1659 (Given - Provider: Marily Murphy, NJ)2122 (Given - Provider: Mel [place], NJ) 0156 (Given - Provider: Mel Willett, NJ)0851 (Given - Provider: Marily [place], [place]) OXYcodone (ROXICODONE) immediate release tablet 5 mg (CANCELED)(Linked Group 3) 5 mg, Oral, EVERY 4 HOURS PRN, Starting on Sat07/22/12 at 1824, Until Sat07/25/12 at 1150, Pain, mild pain, For Mild pain. Do not exceed 15 mg in 4 hours. If pain not relieved, call provider, Recovery (Recovery-Hospital Unit), Routine 0133 (Given - Provider: Morgan Maher, RN)0452 (See Alternative - Provider: Morgan Maher, RN)0935 (See Alternative - Provider: Thao Mathur V, RN)1850 (See Alternative - Provider: Thao Mathur V, RN) 0122 (See Alternative - Provider: Lisa Bucio, RN)0518 (See Alternative - Provider: Lisa Bucio, RN)1212 (See Alternative - Provider: Marily Murphy, RN)1659 (See Alternative - Provider: Marily Murphy, RN)2122 (See Alternative - Provider: Mel Willett, RN) 0156 (See Alternative - Provider: Mel Willett, RN)0851 (See Alternative - Provider: Marily [place], [place]) polyethylene glycol (MIRALAX) packet 17 g 17 [...] Routine documented in this encounter Care Teams Usability Architect Relationship Specialty Start Date End Date Mariluz Watts MD [address] [place] [address] PCP - General 08/22/10 documented as of this encounter
--- OUTSIDE RECORDS SUMMARY | 2024-05-18 20:01 | XMS_ITS | Encounter Summary ---
[place] [address] Care Team Providers Care Pool Technician Name Role Phone Mariluz Watts MD Primary Care Provider [phone] Encounter Details Date Type Department Care Team (Late Contact Info) Description 07/17/2012 Anti-Coag [place]phone [place] [address] Kian Ervin MD [address] [place] [address] Social History Tobacco Use Types Packs/Day Years [...] PM [place] Office [place] [address] Paula Harris PA [facility] [address] 01/26/2025 9:50 AM EDT Appointment Mammography/DXA at [place] [phone] Joan Deutsch, [facility] [place] [address] 01/26/2025 10:50 AM EDT Office [place] [address] Joan Deutsch, [facility] [place] [address] documented as of this encounter Visit Diagnoses Not on filedocumented in this encounter Care Teams Pool Technician Relationship Specialty Start Date End Date Mariluz Watts MD [address] [place] [address] PCP - General 08/22/10 documented as of this encounter
--- OUTSIDE RECORDS SUMMARY | 2024-05-18 20:01 | XMS_ITS | Encounter Summary ---
Author Organization [facility] [place] [address] Care Team Providers Care Licensed Guide Name Role Phone Mariluz Watts MD Primary Care Provider [phone] Encounter Details Date Type Department Care Team (Late st Contact Info) Description 02/29/2012 12:00 PM EDT - 02/29/2012 1:00 PM EDT Surgery [place] [address] Gallito Lincoln MD [facility] [place] [address] COLONOSCOPY, DIAGNOSTIC (WRVU 3.26) Social History Tobacco Use Types Packs/Day Years [...] - 02/29/2012 1:01 PM EDT Please call [phone], before 5pm with problems, questions or concerns, after 5pm call the Hospital at [phone] and ask to speak to the Speech Instructor medication reconciliation technician and the blind slat stapling machine operator will contactthat person for you. Discharge [...] * COLONOSCOPY: WHAT TO EXPECT AT HOME (JAPANESE) documented in this encounter Medications at Time [...] PM EST Office [place] [phone] Paula Harris PA [facility] [place] [address] 01/26/2025 9:50 AM EDT Appointment Mammography/[place] [address] Joan Deutsch, [facility] [place] [address] 01/26/2025 10:50 AM EDT Office [place] [address] Joan Deutsch APRN [facility] [place] [address] documented as of this encounter Procedures Procedure Name Priority Date/Time Associated Diagnosis Comments COLONOSCOPY Routine 02/29/2012 12:01 PM EDT COLONOSCOPY, DIAGNOSTIC (WRVU 3.26) 02/29/2012 11:39 AM EDT 5YR RESCOPE documented in this encounter Results * COLONOSCOPY (02/29/2012 12:01 PM EDT) [facility] Signature COLONOSCOPY [facility] Endoscopy Patient Name: Diamond Gaming ? Procedure Date: 02/29/2012 12:01 PM ? Date of : 1945 ? Age: 66 ? Order #: [id number] ? Procedure: ? Colonoscopy Indications: ? Follow-up for history of adenomatous ? polyps in the colon Providers: ? Gallito Lincoln MD, Anu Schafer, ? Margret MAURO, Racing Board Marker Referring : ?Mariluz Watts MD Medicines: ? [...] Action Action Date Dose Rate Site fentaNYL 50mcg/mL injection ONCE PRN, Starting on Sat02/29/12 at 1144, Until Sat02/29/12 at 1718, Pain, Intra-Operative (Intra-Procedure), Routine Given 02/29/2012 12:31 PM EDT 50 mcg Right Arm Given 02/29/2012 12:28 PM EDT 50 mcg R ight Arm Given 02/29/2012 12:17 PM EDT 50 mcg R ight Arm midazolam (VERSED) injection ONCE PRN, Starting on Sat02/29/12 at 1145, Until Sat02/29/12 at 1718, Sleep, Intra-Operative (Intra-Procedure), Routine Given 02/29/2012 12:31 PM EDT 1 mg Righ t Arm Given 02/29/2012 12:28 PM EDT 1 mg R ight Arm Given 02/29/2012 12:17 PM EDT 1 mg R ight Arm documented in this encounter Active and [...] RN) documented in this encounter Care Teams Licensed Guide Relationship Specialty Start Date End Date Mariluz Watts MD [address] [place] [address] PCP - General 08/22/10 documented as of this encounter
--- OUTSIDE RECORDS SUMMARY | 2024-05-18 20:02 | XMS_ITS | Encounter Summary ---
Author Organization [facility] [place] [address] Care Team Providers Care Primary School Principal Name Role Phone Mariluz Watts MD Primary Care Provider [phone] Encounter Details Date Type Department Care Team (Late st Contact Info) Description 04/13/2011 Abstract [place] [address] Zenaida Dixon, RN Social History Tobacco Use Types Packs/Day [...] PM EST Office [place] [address] Paula Harris PA [facility] [place] [address] 01/26/2025 9:50 AM EDT Appointment Mammography[place] [phone] Joan Deutsch [facility] [place] [address] 01/26/2025 10:50 AM EDT Office [place] [phone] Joan Deutsch, [facility] [place] [address] documented as of this encounter Visit Diagnoses Not on filedocumented in this encounter Care Teams Primary School Principal Relationship Specialty Start Date End Date Mariluz Watts MD [address] [place] [address] [address] [place] [address] PCP - General 08/22/10 documented as of this encounter
--- OUTSIDE RECORDS SUMMARY | 2024-05-18 20:02 | XMS_ITS | Encounter Summary ---
Author Organization [facility] [place] [address] Care Team Providers Care Seam Finisher Name Role Phone Mariluz Watts MD Primary Care Provider [phone] Reason for Visit * Reason Comments Follow-up Encounter Details Date Type Department Care Team (Late st Contact Info) Description 11/01/2011 3:00 PM EST Follow-Up Hematology [place] [address] CLINIC, DR KATARINA Merlos, Abrahan Chavarria MD [facility] DR HEMATOLOGY/[place] [address] Breast cancer, stage 2 (Primary Dx) Discharge [...] Sign Reading Time Taken Comments Blood Pressure 128/68 11/01/2011 2:37 PM EST Pulse 94 11/01/2011 2:37 PM EST Temperature 36.5 ??C (97.7 ??F) 11/01/2011 2:37 PM ES T Respiratory Rate 20 11/01/2011 2:37 PM EST Oxygen Saturation 96% 11/01/2011 2:37 PM EST Inhaled Oxygen Concentration - - Weight 99.1 kg (218 lb 7.6 oz) 11/01/2011 2:37 P M EST Height 168 cm (5' 6.14) 11/01/2011 2:37 PM EST Body Mass Index 35.11 11/01/2011 2:37 PM EST documented in this encounter Patient Instructions * Patient Instructions* Abrahan Merlos MD - 11/01/2011 3:44 PM EST Your exam and mammograms look good and I don't see any evidence of breast cancer recurrence. Plan for the joint aches: Voltaren creme -apply topically every 4 hours while awake as need, and you can do this in addition to the ibuprofen You can add fish oil capsules 1000 mg pills once daily - reflux and they taste fishy If these things don't help, call me so we can talk about a drug holiday (3 weeks offand then I call back to see that things are better) If Derm can't control rosacea or if other side effects can't be managed we could discuss switch from anastrozole to tamoxifen based on Big 1-98. I'll see you back in six months and repeat labs then/ documented in this encounter Progress Notes * Abrahan Merlos MD - 11/01/2011 6:18 PM EST Subjective: Patient ID: Diamond Gaming is a 65 y.o. female with Stage II breast cancer, seen for six month followup. HPI : Ms. Gaming presented on screening mammography January [...] bilateral wire localization excisions with reduction mammoplasties kristal right sentinel node biopsy on March 24. [...] urinary incontinence and vaginal dryness, she has multiple hot flashes each day, she has soft fragile nails, and she has increased arthralgias of her left hand and thumb, wrists, feet, and ankles. Interval history: Since her last visit, Ms. Gaming has noted more hair loss, a flare in her rosacea,increased arthralgias of her right first CMC joint joint as well as ongoing arthralgias in her elbows, fingers, left knee, right ankle, and feet. She is using maximal dose ibuprofen. Her hot flashes are under better control with an escalation of the celexa to 40 mg daily. She denies any vaginal dryness, and she is taking 2200 units of Vitamin D daily. Review of Systems : She denies breast pain, a cough, shortness of breath, chest pain, nausea, vomiting, diarrhea, constipation, headaches, double vision, pain, redness, or swelling in her lower extremities, or any other sites of skeletal pain. The remainder of her review of systems is negative. Objective: Physical Exam Vitals reviewed. Constitutional: She appears well-developed and well-nourished. HENT: Mouth/Throat: Oropharynx is clear and moist. No oropharyngeal exudate. Eyes: No scleral icterus. Neck: Neck supple. Cardiovascular: Normal rate, regular rhythm and normal heart sounds. Exam reveals no gallop. No murmur heard. Pulmonary/Chest: Breath sounds normal. She has no wheezes. She has no rales. She has bilateral mastopexy scars. There are no masses within the left breast. There is erythema ofthe skin of the medial right breast and edema of the central right breast. There are no masses within the right breast, and there is no axillary adenopathy. Abdominal: Soft. She exhibits no distension and no mass. No tenderness. She has no guarding. Musculoskeletal: She exhibits no edema. Lymphadenopathy: She has no cervical adenopathy. Skin: Skin is warm and dry. No erythema. Psychiatric: She has a normal mood and affect. The most recent labs from April 06, 2011 include a bilirubin of 0.2, alk phos 94, AST 13, ALT 14, albumin 4.4, and a 25-hydroxy Vitamin D of 41 ng/mL. The most recent mammograms from October 26, 2010 showed a stable fibroglandular pattern without significant change. There were post-surgical changes bilaterally. The breasts were of scattered density. The mammograms were repeated today, and the results are pending. The Dexa scan from October 26, 2010 showed T scores of -1.1 in the lumbar spine, 0.1 in the left hip, and -0.1 in the left femoral neck. Assessment and Plan: Ms. Gaming is doing well and has no evidence of breast cancer recurrence. I suggested that she applytopical voltaren gel 1% to the base of her thumbs every 4 hours as needed in addition to the ibuprofen. She may also add a 1000 mg fish oil capsule once daily for its anti-inflammatory activity. If she does not achieve adequate relief from these measures, we could consider a brief two to three weekdrug holiday which will sometimes help mitigate the arthralgia syndrome. If the drug holiday does not help, we could consider a class switch to the competitive aromatase inhibitor exemestane, or a switch to tamoxifen. There is data from one study, the Big -98 trial, that five years of an aromatase inhibitor is equivalent to two years of an aromatase inhibitor followed by three years of tamoxifen. The rosacea and hair loss may also be attributable to anastrozole and may improve with a switch totamoxifen, but the switch to tamoxifen will be used only as a last resort. I will see Ms. Gaming back in followup in six months, and I will repeat her LFT's and a Vitamin D level at that time. Abrahan Merlos MD engineer/conductor in Hematology-Oncology documented in this encounter Miscellaneous Notes * Communication Body - Abrahan Merlos MD - 11/01/2011 3:48 PM EST documented in this encounter Plan of Treatment Upcoming Encounters Date Type Department Care Team (Late st Contact Info) Description 11/16/2024 1:00 PM EST Office Visit General Surgery at [place] [phone] Paula Harris PA [facility] [place] [address] 01/26/2025 9:50 AM EDT Appointment Mammography/[place] [address] Joan Deutsch [employer] SALES UNIT ADVISOR [facility] [place] [address] 01/26/2025 10:50 AM EDT Office Visit General Surgery at [place] [phone] Joan Deutsch PARTY PLAN SALES UNIT ADVISOR [facility] [place] [address] documented as of this encounter Results * VIT D Total 25 Hydroxy (05/02/2012 1:09 PM EDT) Vitamin D Total 25 OH 41 30 - 100 ng/mL [facility] Comment: Deficient <10 ng/mL Insufficient 10 [...] Hydroxy assays are being analyzed by the [facility] Chemistry Laboratory. ??There is NO CHANGE in units. ??Please contact the chemistry laboratory at [phone] with questions. Blood specimen (specimen) 05/02/2012 1:09 PM EDT 05/02/2012 1:11 PM EDT Narrative Resulting Agency Comment Spec In Lab Abrahan Merlos MD CHEMISTRY ORDERABLES [facility]IE DYERENNIUM * Hepatic Function Panel (05/02/2012 1:09 PM EDT) Pathologist [facility] Protein, Total 6.8 6.4 - 8.3 gm/dL CERNER MILLENNIUM Albumin 4.6 3.2 - 5.2 gm/dL CERNER MILLENNIUM Aspartate Aminotransferase 13 0 - 30 unit/L CERNER MILLENNIUM Alanine Aminotransferase 15 0 - 30 unit/L CERNER MILLENNIUM Alkaline Phosphatase 97 40 - 104 unit/L CERNER MILLENNIUM Bilirubin, Total 0.2 0.2 - 1.3 mg/dL CERNER MILLENNIUM Bilirubin, Direct 0.1 0.0 - 0.3 mg/dL CERNER MILLENNIUM Blood specimen (specimen) 05/02/2012 1:09 PM EDT 05/02/2012 1:11 PM EDT Narrative Resulting Agency Comment Spec In Lab Abrahan Merlos MD CHEMISTRY ORDERABLES [facility] MANISHAIZABEL[facility] documented in this encounter Visit Diagnoses Diagnosis Breast cancer, stage 2- Primary Malignant neoplasm of breast (female), unspecified site documented in this encounter Care Teams Seam Finisher Relationship Specialty Start Date End Date Mariluz Watts MD [address] [place] [address] PCP - General 08/22/10 documented as of this encounter
--- OUTSIDE RECORDS SUMMARY | 2024-05-18 20:02 | XMS_ITS | Encounter Summary ---
Author Organization [facility] [place] [address] Care Team Providers Care Travel Agency Manager Name Role Phone Mariluz Watts MD Primary Care Provider [phone] Encounter Details Date Type Department Care Team (Late st Contact Info) Description 01/27/2007 Orders Only [place] [address] Arcenio Carrion MD [facility] [place] [address] Social History Tobacco Use Types Packs/Day Years Used Date Smoking Tobacco: Never Assessed [facility] Inpatient Questions Answer Date Recorded Does [...] PM EST Office Visit General Surgery at [place] [phone] Paula Harris PA [facility] [place] [address] 01/26/2025 9:50 AM EDT Appointment Mammography/DXA at [place] [phone] Joan Deutsch, [facility] [place] [address] 01/26/2025 10:50 AM EDT Office Visit General Surgery at [place] [phone] Joan Deutsch, CREAM MAKER [facility] [place] [address] documented as of this encounter Procedures Procedure Name Priority Date/Time Associated Diagnosis Comments SURGICAL PATHOLOGY REPORT Routine 01/27/2007 5:27 PM EDT documented in this encounter Results * Surgical Pathology Report (01/27/2007 5:27 PM EDT) Pathologist [facility] Surgical Pathology Report [id number] ? Location: The signing pathologist has (i) examined the relevant preparation(s) for the specimen(s) and (ii) rendered or confirmed the diagnosis(es). . ?Pathology Surgical Pathology Final Report Clinical Information Specimen Submitted: A - Polyp; Sigmoid B - Polyp; Cecum Clinical History: Polyps Clinical Diagnosis: S/P ? Diverticular bleed, evaluate for any pathology. Gross Description A - Labeled/Fixative : Polyp, sigmoid, formalin. Qty/Size/Weight: ?Single, 0.3 x 0.3 x 0.3 cm. Tissue Description: ?? Red-brown tissue. Sections/Process ing: ??(T1) B - Labeled/Fixative : Polyp, cecum, formalin. Qty/Size/Weight: ?Single, 0.2 x 0.2 x 0.2 cm. Tissue Description: ?? Soft, castillo tissue. Sections/Process ing: ??(T1) ??alysha/EJR Microscopic Description Slides reviewed, microscopic description not recorded. Diagnosis Endoscopic biopsies - A. ??Hyperplastic polyp. B. ??Tubular adenoma. CR-PX 01/29/07 AAS 01/29/07 Verified by: ? Uyen Willis MD ?Pathologist ?(Electronic Signature) The attending pathologist whose signature appears on this report has reviewed all diagnostic slides and has edited the gross and/or microscopic portion of the report in rendering the final pathologic diagnosis. [facility] 01/27/2007 5:27 PM EDT Arcenio Carrion MD PATHOLOGY/CYTOLOGY O RDERABLES Performing Organization Address City/State/[facility] Co de Phone Number [facility] documented in this encounter Visit Diagnoses Not on filedocumented in this encounter Care Teams Travel Agency Manager Relationship Specialty Start Date End Date Mariluz Watts MD [address] [place] [address] [address] [facility] [address] [place] [address] PCP - General 08/22/10 documented as of this encounter
--- OUTSIDE RECORDS SUMMARY | 2024-05-18 20:02 | XMS_ITS | Encounter Summary ---
Author Organization [facility] [place] [address] Care Team Providers Care Manager Personal Name Role Phone Mariluz Watts MD Primary Care Provider [phone] Encounter Details Date Type Department Care Team (Late st Contact Info) Description 03/24/2010 Orders [place] [address] Gardenia Marquez MD [facility] [place] [address] Social History Tobacco Use Types Packs/Day Years Used Date Smoking Tobacco: Never Assessed [facility] Inpatient Questions Answer [...] PM EST Office [place] [phone] Paula Harris PA [facility] [place] [address] 01/26/2025 9:50 AM EDT Appointment Mammography/[place] [address] Joan Deutsch, FUR BLOWING MACHINE ATTENDANT [facility] [place] [address] 01/26/2025 10:50 AM EDT Office [place] [phone] Joan Deutsch, FUR BLOWING MACHINE ATTENDANT [facility] [place] [address] documented as of this encounter Procedures Procedure Name Priority Date/Time Associated Diagnosis Comments SURGICAL PATHOLOGY REPORT Routine 03/24/2010 2:44 PM EDT documented in this encounter Results * Surgical Pathology Report (03/24/2010 2:44 PM EDT) Pathologist [facility] Surgical Pathology Report [id number] ? Location: [facility] [email or web address]]; 0206; A The signing pathologist has (i) examined the relevant preparation(s) for the specimen(s) and (ii) rendered or confirmed the diagnosis(es). . ? Pathology Molecular Genetics Report Results TEST: ??HER2 FISH, BREAST CANCER METHOD: ??Fluorescence in situ hybridization (FISH) with probe for chromosome 17 centromere (17p11.1-q11.1) and locus specific probe for the HER2 gene locus (17q11.2-q12). SAMPLE ANALYZED: C2-6 RESULT: ?NEGATIVE FOR HER2/SHONDA AMPLIFICATION ? TOTAL # SIGNALS/TOTAL # NUCLEI COUNTED FOR HER2 PROBE = 80 ? TOTAL # SIGNALS/TOTAL # NUCLEI COUNTED FOR CEP-17 PROBE = 80 ? HER2 TO CEP-17 RATIO = 1.0 ? (NORMAL RANGE <1.8) SAMPLE ANALYZED: ??C11-02 RESULT: ?NEGATIVE FOR HER2/SHONDA AMPLIFICATION ? TOTAL # SIGNALS/TOTAL # NUCLEI COUNTED FOR HER2 PROBE = 80 ? TOTAL # SIGNALS/TOTAL # NUCLEI COUNTED FOR CEP-17 PROBE = 80 ? HER2 TO CEP-17 RATIO = 1.0 ? (NORMAL RANGE <1.8) Interpretation: ??Paraffin-embedded tissue sections were submitted for HER2 gene amplification analysis by FISH. ??Direct analysis was performed using the [employer] Kit. ??Slide adequacy and signal enumeration were evaluated and satisfactory for both control and patient slides. ??The results of this analysis is based on the enumeration of 40 interphase nuclei from non-overlapping tumor cells. ??A signal ratio derived from the HER2 probe and the CEP-17 centromere probe of >2.2 is considered positive for HER2 gene amplification. 2008 CAP guidelines state that samples with a HER2 to CEP-17 ratio of less than 1.8 are normal. Specimen with a HER2 to CEP-17 range of 1.8 to 2.2 are considered equivocal. Specimen with a HER2 to CEP-17 ratio of greater than 2.2 are considered amplified. This test is approved by the U.S.FDA for clinical diagnostic use. Mich Crenshaw, PH.D. Director, Molecular Pathology _ Verified date: ??04/07/10 ??SFA Verified by: ?Devendra Trevino MD ?(Electronic Signature) ?Pathology Surgical Pathology Final Report Clinical Information kSpecimen Submitted: A - Right Uledi node, Right Axilla B - Left Breast Excisional Biopsy, Left Breast C - Right Partial Mastectomy, Right Breast . Clinical Information D - Left Breast Deep Margin, Left Breast E - Right Breast Cranial Margin, Right Breast F - Rt Breast inferior medial margin, right breast Clinical History: Not provided Clinical Diagnosis: Right breast cancer Gross Description A - Labeled/Fixative: Right sentinel node, fresh. Qty/Size/Weight: ?Fragments, aggregating 3.3 x 2.0 x 1.0 cm. Tissue Description: ?? Castillo-yellow fibroadipose tissue. ??Two probable nodes ?are identified, 0.7 x 0.4 x 0.2 cm and ?1.8 x 1.2 x 0.6 cm respectively. Sections/Processing: ??(T2) B - Labeled/Fixative: Left breast excisional biopsy, fresh. Qty/Size/Weight: ?Single, 30.0 x 13.4 x 3.5 cm, 826 g. Radiograph: ? Accompanies the specimen and shows thick, dense ?breast tissue and a wire at one edge of the sample with an adjacent clip. ??A note from radiology reads ? blue ? green ASHER #6/off of A of alphanumeric grid. Tissue Description: ?? The specimen includes a large elliptical portion of ?skin, 25.0 x 9.0 cm and a separate pedicle of adipose tissue covered on one surface by a skin ellipse. ??Separate adipose tissue extension measures 3.0 x 2.5 x 2.4 cm and is covered by a small, elliptical portion of castillo skin, 3.0 x 1.5 cm. ??The main sample including the large skin ellipse is inked according to the established protocol. ??According to the established protocol, the ink designations are red (medial), yellow (lateral), orange (cranial), green (caudal), black (deep), and blue (superficial). Tissue Sections: ?The specimen is serially sectioned perpendicular to ?the long axis from red to yellow into sixteen slices, ?each averaging 0.8 cm in thickness. Lesion: ? A discrete mass is not identified. Parenchyma: ? Serial sections of the main mass reveal lobular ?adipose tissue with interspersed, castillo-white, focally fibrous breast tissue. ??In some sections, what appear to be firm, ovoid, cystic structures are identified. ??No masses are noted grossly. ??There is a wire inserted into the sample at the edge of the separate pedicle of adipose tissue and skin. ??Serial sections of this portion of the sample reveal similar lobular adipose tissue with focally dense breast tissue. ??No discrete masses are identified. ??Serial sections of the breast tissue underlying the skin of the small attached pedicle reveal dense foci of fibrous tissue, approximately 4.0 x 0.8 x 0.8 cm. Sections/Processing: ??Facility Administrator sections are submitted as follows: ?(1) red margin; (2-3) agency sales representative section, slice VII, including deep margin and fibrous tissues; (4) fibrous breast tissue, slice IX; (5) fibrous breast tissue, slice X; (6) fibrous breast tissue, slice XI; (7-8) fibrous tissue, slice XII; (9) fibrous tissue, slice XIII; (10) fibrous tissue, slice XV; (11-17) sections of separate pedicle of fat and adipose tissue with (15-17) including slice with wire; (18-20) adjacent fibrous band. ??(R20) C - Labeled/Fixative: ?? Partial right mastectomy, fresh. Qty/Size/Weight: ?Single, 21.0 x 15.7 x 4.3 cm, 545 g. Tissue Description: ? Right simple mastectomy which includes skin in two ?pieces sutured centrally, 18.0 x 12.0 cm. Skin: ? Skin surfaces are smooth, castillo-pink without lesions ?grossly. Deep Margin: ?Smooth without lesions grossly. ??Ink is used to ?identify deep, medial, lateral, cranial, and caudal ?margins. X-ray: ?An accompanying x-ray identifies lesion 2, lesion . Gross Description ?1, and a clip adjacent to lesion 1, presumably ?lesion 3. Sectioning: ? From medial to lateral into slices. Lesion 1: ? Radiologic correlation: ? 02/09 ultrasound. ? Tissue slice: ? . ? Size: ? 1.5 x 1.2 cm. ? Qualitative Description: ?Circumscribed, castillo-pink with scalloped ? margins. ? Distance to nearest margin: ?? 1.4 cm to deep. ? Cassettes containing lesion: ??(C7-C12). Lesion 2: ? Radiologic correlation: ? 02/09 ultrasound. ? Tissue slice: ? IV. ? Size: ? 0.8 cm in diameter. ? Qualitative Description: ?Indurated, castillo-pink, without a discrete ? mass. ? Distance to nearest margin: ?? 1.5 cm to deep. ? Distance from lesion 1: ? 0.8 cm. ? Cassettes containing lesion: ??(C2-C3). Lesion 3: ? Radiologic correlation: ? Ultrasound, 02/09. ? Tissue slice: ? XI-XII. ? Size: ? 0.9 x 0.8 cm. ? Qualitative Description: ?Castillo-bonilla, ill-defined mass with ? radio-opaque material associated and ? clip identified. ? Distance to nearest margin: ?? 0.8 cm to black. ? Distance from lesion 1: ? 1.5 cm. ? Distance from lesion 2: ? 2.3 cm. ? Cassettes containing lesion: ??(C16-C19). Parenchyma: ? Reveals lobular adipose tissue and interspersed, ?castillo-white breast tissue. Sections/Processing: ?(C1) yellow margin; (C2-C3) lesion 2; (C4-C5) deep ?margin of lesion 2; (C6) lesion between 2 and 1; (C7-C10) lesion 1; (C11-C12) additional section of lesion 1, slice VIII; (C13) deep margin at lesion 1; (C14) cranial margin, lesion 1; (C15) tissue between lesion 1 and lesion 3; (C16-C19) lesion 3, clip in (C19); (C20) deep and lesion 3. ??(R20) ?? aje/PPS D - Labeled/Fixative: Left breast deep margin, fresh. Qty/Size/Weight: ?Single, 2.5 x 2.0 x 0.7 cm. Tissue Description: ?? Portion of castillo-yellow adipose tissue. ??One surface is ?marked with black ink. Sections/Processing: ??The specimen is serially cross sectioned and totally ?submitted in (D3). ??(T3) E - Labeled/Fixative: Right breast cranial margin, fresh. Qty/Size/Weight: ?Single, 2.3 x 1.6 x 1.1 cm. Tissue Description: ?? Portion of castillo-yellow adipose tissue covered on one ?surface by orange dye. ??The specimen is serially sectioned containing lobular, castillo-yellow adipose tissue with interspersed breast tissue. ??No discrete masses are identified. Sections/Processing: ??(T3) F - Labeled/Fixative: Right breast inferior margin, fresh. Qty/Size/Weight: ?Aggregate, 14.5 x 12.0 x 4.0 cm. Tissue Description: ?? Irregular fragments of castillo-yellow fibroadipose tissue ?and skin. ??Skin is pale castillo-white without lesions grossly. ??A small amount of green ink is noted along one edge of the skin. ??No other orienting markers are noted grossly. ??Sectioning through the adipose tissue . Gross Description fragments reveal lobular adipose tissue with a small amount of interspersed, castillo- white breast tissue. Sections/Processing: ??Facility Administrator sections are submitted with green ink ?markings in (1-5) and foci of breast tissue and ?adipose in (6-8). ??(R8) ??aje/PPS Microscopic Description Slides reviewed, microscopic description not recorded. Diagnosis Specimen (s): ??A - Right Uledi node ? C - Right Partial Mastectomy ? E - Right Breast Cranial Margin ? F - Right Breast inferior medial margin Lesions 1&2: Histologic Type: Invasive ductal carcinoma with lobular features Tumor Grade: ??Intermediate Qflbrp-Qpezu-Jkkwcndhl n Score: ??7 ?? Tubular Differentiation: ?? 3 ?? Mitotic Rate: ?? 1 ?? Nuclear Grade: ??3 Tumor Size: ?? 1.5 cm (lesion 1) ?0.8 cm (lesion 2) In Situ Histologic Type: Ductal Carcinoma In-Situ (DCIS) (lesions 1,2,3) Extensive/Minor Component: ??Minor ?? Grade: ?? Intermediate ?? Necrosis: ??Present ?? Pattern(s): ??Solid, cribriform Microcalcifications: ??Associated with IDC & DCIS Angiolymphatic Invasion: Present (slide C3) Perineural Invasaion: Absent Skin/Skeletal muscle Invasion: Not identified.(skin only) Other Findings: 1. Biopsy site change (lesion 3) ?2. Benign papilloma ?3. Fibrocystic disease with fibrosis, cysts and sclerosing ? adenosis. Resection Margins (RM): Invasive Ca: ? Close to margin ?Distance from closest RM(s): ??Less than 1 mm to deep margin (slide C5) DCIS: ?Close to deep margin ?Distance from closest RM(s): ??< 1 mm to deep margin (slide C5) Axillary lymph nodes: Total no. nodes sampled: ?2 ??No. non-sentinel nodes: ? 0 ??No. sentinel nodes: ? 2 ??(Specimen A - Right Uledi node) ?? No. positive for carcinoma: ??1 ??(H&E) ?? No. with IHC (+) cells only: 0 ??(cells not seen by H&E, see Note*) ?? No. negative for carcinoma: ??1 ??(both H&E and IHC) ?For positive nodes: ?Largest kristi deposit ?? 0.2 cm ?Extranodal extension ?Absent Estrogen/Progestin receptors: ?? Performed on blocks C2 and C11 ?? ER immunoreactivity: ? Positive (see Diagnostic hanna*) ?? OK immunoreactivity: ? Positive (see Diagnostic hanna*) HER2/shonda expression by FISH: ?See separate report . Diagnosis pTNM: ? pT1c pN1 pMX (AJCC, 7th edition, 2010) ?- - - - - - - - - - - - - - - - - - - - - - - - - - - - - *Diagnostic hanna for hormone receptors: ?? Negative immunoreactivity: ??No immunostaining ?? Equivocal immunoreactivity: 1-15% tumor cells with immunostaining ?? Positive immunoreactivity: ??>15% tumor cells with immunostaining NOTE: ??The clinical significance of cytokeratin (CK) only immunoreactivity in a sentinel node is currently unknown. The two cytokeratin (CK) antibodies routinely used in the evaluation of sentinel nodes are 5D3 and AE1/3. ??The immunohistochemical studies provide ancillary information and are used only in conjunction with standard diagnostic procedures. Specimen: ? 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 Fibrocystic disease with scar, fibrosis and ?sclerosing adenosis. CR-0 03/29/10 VAM 03/29/10 Verified by: ? Devendra Trevino MD ?Pathologist ?(Electronic Signature) The attending pathologist whose signature appears on this report has reviewed all diagnostic slides and has edited the gross and/or microscopic portion of the report in rendering the final pathologic diagnosis. VALERIE TOPETE 03/24/2010 2:44 PM EDT Gardenia Marquez MD PATHOLOGY/CYTOLOGY ORDERABLES VALERIE TOPETE documented in this encounter Visit Diagnoses Not on filedocumented in this encounter Care Teams Manager Personal Relationship Specialty Start Date End Date Mariluz Watts MD [address] [place] [address] [address] [place] [address] PCP - General 08/22/10 documented as of this encounter
--- OUTSIDE RECORDS SUMMARY | 2024-05-18 20:02 | XMS_ITS | Encounter Summary ---
[place] [address] Care Team Providers Care Plant Health Manager Name Role Phone Mariluz Watts MD Primary Care Provider [phone] Reason for Visit * Reason Comments Follow-up Encounter Details Date Type Department Care Team (Latest Contact Info) Description 04/06/2011 1:37 PM EDT - 04/06/2011 11:59 PM EDT Hospital Encounter [place]ematology [place] [address] Abrahan Merlos MD [facility] HEMATOLOGY/[place] [address] Breast cancer, stage 2 Discharge Disposition: Home [...] Sign Reading Time Taken Comments Blood Pressure 124/70 04/06/2011 2:17 PM EDT Pulse 82 04/06/2011 2:17 PM EDT Temperature 36.9 ??C (98.4 ??F) 04/06/2011 2:17 PM ED T Respiratory Rate 18 04/06/2011 2:17 PM EDT Oxygen Saturation 97% 04/06/2011 2:17 PM EDT Inhaled Oxygen Concentration - - Weight 101.6 kg (223 lb 15.8 oz) 04/06/2011 2:17 PM EDT Height 169 cm (5' 6.54) 04/06/2011 2:17 PM EDT Body Mass Index 35.57 04/06/2011 2:17 PM EDT documented in this encounter Discharge Instructions * Patient Instructions* Abrahan Merlos MD - 04/06/2011 3:16 PM EDT Your exam is great and I don't see any evidence of breast cancer recurrence. You're doing pretty good with the anastrozole I'll contact you over the weekend with your Vitamin D and liver enzyme results, and I I'll ask you to modify the dosing of the Vitamin D iuf your level is outside the optimal range of 35-45. I'll see you next iun September, and we'll coordinate that appointment with Dr. Marquez. You'll habve mammograms that day but nothing else. documented in this encounter Medications at Time of Discharge Medication Sig Dispensed Refills Start Date End Date anastrozole (ARIMIDEX) 1 mg tabletIndications:Kimberly st cancer, stage 2 Take 1 tablet by mouth daily. 90 tablet 3 04/06/2011 08/14/2011 Triamcinolone Acetonide-L.S.B. 0.1 % CreaIndications:Dermat itis Apply 1 applicator topically 2 times daily for 7 days. 1 Tube 0 04/03/2011 04/10/2011 ascorbic acid (VITAMIN C) 500 mg tablet Take 500 mg by mouth daily. 09/04/2011 Ubltctt-Hodkvhtdu-Dmsz 333-133-5 mg Tab Take 3 tablets by mouth daily. 04/03/2011 09/04/2011 citalopram (CELEXA) 20 mg tablet Take 50 mg by mouth daily. 09/04/2011 diphenhydrAMINE (BENADRYL) 25 mg tablet Take 25 mg by mouth every 6 hours as needed. 04/16/2011 metroNIDAZOLE (METROGEL) 1 % gel 10/26/2010 2 TURJACKIE, DARCY, MISC 10/26/2010 012 multivitamin (THERAGRAN) tablet 10/26/2010 2 documented as of this encounter Progress Notes * Abrahan Merlos MD - 04/06/2011 11:04 PM EDT Subjective: Patient ID: Diamond Gaming is a 65 y.o. female with Stage II breast cancer, here for six month followup. HPI : Ms. [...] 22, to a dose of 50.4 Gy. She has had multiple hot flashes each day despite the use of celexa, she has a loss of libido, her left thumb and feet are stiff and achy, she has episodic headaches, and she has chronic arthralgias of her elbows, shoulders, neck, back, feet, knees, and ankles. She admits that she had all of these symptoms prior to starting the anastrozole. She walks a couple of hours each week and she is taking about 1500 units of Vitamin D daily. She underwent a revision of her bilateral breast scars last week, and she has pruritis and erythema at the scars. Review of Systems : She denies breast [...] No oropharyngeal exudate. Eyes: No scleral icterus. Cardiovascular: Normal rate, regular rhythm and normal heart sounds. Exam reveals no gallop. No murmur heard. Pulmonary/Chest: Breath sounds normal. She has no wheezes. She has no rales. She has fresh mastopexy scars bilaterally with faint erythema along the wound margins bilaterally. There are no masses palpable within either breast, and there is no axillary adenopathy. Abdominal: Soft. She exhibits no distension and no mass. No tenderness. She has no guarding. Musculoskeletal: She exhibits no edema. Lymphadenopathy: She has no cervical adenopathy. Skin: Skin is warm and dry. No erythema. Psychiatric: She has a normal mood and affect. Results for orders placed during the hospital encounter of 04/06/11 (from the past 24 hour(s)) HEPATIC FUNCTION PANEL Component Value Range ??? Total Protein 6.8 6.4 - 8.3 (gm/dL) ??? Albumin 4.4 3.2 - 5.2 (gm/dL) ??? AST 13 0 - 30 (unit/L) ??? ALT 14 0 - 30 (unit/L) ??? Alk Phos 94 40 - 104 (unit/L) ??? Total Bilirubin 0.2 0.2 - 1.3 (mg/dL) ? ? Bili, Direct <0.1 0.0 - 0.3 (mg/dL) A 25-hydroxy Vitamin D level is pending. The most recent mammograms from October 26, 2010 showed a stable fibroglandular pattern without significant change. There were post-surgical changes bilaterally. The breasts were of scattered density. The Dexa scan from October 26, 2010 showed T scores of -1.1 in the lumbar spine, 0.1 in the left hip, and -0.1 in the left femoral neck. Assessment and Plan: Ms. Gaming is doing well, and she has no evidence of breast cancer recurrence. She is not interestedin using anything to improve her libido or to mitigate her vasomotor symptoms. I will contact her with her Vitamin D level, and I will ask her to modify her dosing of supplemental Vitamin D if necessary to achieve a level in the 35-45 ng/mL range. I renewed her prescription for anastrozole. I will see her next in followup in September, and I will coordinate this appointment with Dr. Marquez. I anticipate that she will take a total of five years of treatment with anastrozole. documented in this encounter Plan of Treatment Upcoming Encounters Date Type Department Care Team (Late st Contact Info) Description 11/16/2024 1:00 PM EST Office Visit General Surgery at [place] [phone] Paula Harris PA [facility] [place] [place] [address] 01/26/2025 9:50 AM EDT Appointment Mammography/DXA at [place] [phone] Joan Deutsch APRN [facility] [place] [address] 01/26/2025 10:50 AM EDT Office Visit General Surgery at [place] [phone] Joan Deutsch APRN [facility] [place] [address] documented as of this encounter Visit Diagnoses Diagnosis Breast cancer, stage 2 Malignant neoplasm of breast (female), unspecified site documented in this encounter Care Teams Plant Health Manager Relationship Specialty Start Date End Date Mariluz Watts MD [address] [place] [address] PCP - General 08/22/10 documented as of this encounter
--- OUTSIDE RECORDS SUMMARY | 2024-05-18 20:02 | XMS_ITS | Encounter Summary ---
Author Organization [facility] [place] [address] Care Team Providers Care Floorhand Name Role Phone Mariluz Watts MD Primary Care Provider [phone] Encounter Details Date Type Department Care Team (Latest Contact Info) Description 10/26/2010 12:42 PM EST - 10/26/2010 11:[address] [facility] Hospital Encounter Hematology [place] [address] Abrahan Merlos MD [facility] HEMATOLOGY/[place] [address] Discharge Disposition: Home Social History Tobacco Use Types Packs/Day Years Used Date Smoking Tobacco: Never Assessed Sex and Gender Information Value Date Recorded Sex Assigned at Not on file Gender Identity Not on file Sexual Orientation Not on file documented as of this encounter Medications at Time of Discharge Medication Sig Dispensed Refills Start Date End Date anastrozole (ARIMIDEX) 1 mg tablet 1 MG = 1 Tablet(s), PO, Once daily 10/26/2010 04/06/2011 metroNIDAZOLE (METROGEL) 1 % gel 10/26/2010 07/25/2012 TURMERIC, BULK, MISC 10/26/2010 012 multivitamin (THERAGRAN) tablet 10/26/2010 07/25/2012 diclofenac (VOLTAREN) 1 % Gel topical gel 1 Appl(s), Top, Twice daily 10/26/2010 03/27/2011 documented as of this encounter Plan of Treatment Upcoming Encounters Date Type Department Care Team (Late st Contact Info) Description 11/16/2024 1:00 PM EST Office [place] [phone] Paula Harris PA [facility] [place] [address] 01/26/2025 9:50 AM EDT Appointment Mammography/DXA at [place] [phone] JUDGE [facility] [place] [address] 01/26/2025 10:50 AM EDT Office Visit General Surgery at [place] [phone] Joan Deutsch [facility] [place] [address] documented as of this encounter Visit Diagnoses Not on filedocumented in this encounter Care Teams Floorhand Relationship Specialty Start Date End Date Mariluz Watts MD [address] [place] [address] PCP - General 08/22/10 documented as of this encounter
--- OUTSIDE RECORDS SUMMARY | 2024-05-18 20:02 | XMS_ITS | Encounter Summary ---
Author Organization [facility] [place] [address] Care Team Providers Care Tufting Machine Operator Name Role Phone Mariluz Watts MD Primary Care Provider [phone] Encounter Details Date Type Department Care Team (Late st Contact Info) Description 10/26/2010 1:15 PM EST [place] [address] Gardenia Marquez MD [facility] [place] [address] Discharge Disposition: Home Social History Tobacco Use [...] PM EST Office [place] [address] Paula Harris PA [facility] [place] [address] 01/26/2025 9:50 AM EDT Appointment Mammography/[place] [address] Joan Deutsch, [facility] [place] [address] 01/26/2025 10:50 AM EDT Office [place] [address] Joan Deutsch, [facility] [place] [address] documented as of this encounter Visit Diagnoses Not on filedocumented in this encounter Care Teams Tufting Machine Operator Relationship Specialty Start Date End Date Mariluz Watts MD [address] [place] [address] [address] [place] [address] PCP - General 08/22/10 documented as of this encounter
--- OUTSIDE RECORDS SUMMARY | 2024-05-18 20:02 | XMS_ITS | Encounter Summary ---
Author Organization [facility] Address [address] [place] [address] Care Team Providers Care Crib Tender Name Role Phone Mariluz Watts MD Primary Care Provider [phone] Encounter Details Date Type Department Care Team ([facility] st Contact Info) Description 05/15/2021 Lab Requisition [facility] Pathology & Laboratory Medicine - [address] [address] Outr Resulting Lab, Provider Social History Tobacco Use Types Packs/Day Years Used Date Smoking Tobacco: Never Assessed Sex and Gender Information Value Date Recorded Sex Assigned at Not on file Gender Identity Not on file Sexual Orientation Not on file documented as of this encounter Plan of Treatment Not on file documented as of this encounter Procedures Procedure Name Priority Date/Time Associated Diagnosis Comments GIARDIA AND CRYPTOSPORIDIUM ANTIGENS Routine 05/14/2021 18:00 EDT documented in this encounter Results * GIARDIA AND CRYPTOSPORIDIUM ANTIGENS (05/14/2021 18:00 EDT) Giardia and Cryptosporidium Cryptosporidium Antigen Neg and Giardia Antigen Neg Cryptosporidium Antigen Neg and Giardia Antigen Neg 10:[address] [facility] Feces SPECIMEN FROM RECTUM / Unknown 05/14/2021 18:00 EDT 05/15/2021 16:39 EDT Provider Outr Resulting Lab MICROBIOLOGY - GENERAL ORDERABLES [facility] [address] [place] [address] documented in this encounter Visit Diagnoses Not on filedocumented in this encounter Care Teams Crib Tender Relationship Specialty Start Date End Date Mariluz Watts MD [address] [place] [address] PCP - General Family Medicine - Primary Care 12/26/22 documented as of this encounter
--- OUTSIDE RECORDS SUMMARY | 2024-05-18 20:02 | XMS_ITS | Encounter Summary ---
Author Organization formerly [facility] [place] [address] Care Team Providers Care Cell Biologist Name Role Phone Mariluz Watts MD Primary Care Provider [phone] Reason for Visit * Reason Comments Follow Up Surgery Encounter Details Date Type Department Care Team (Late st Contact Info) Description 04/16/2011 3:45 PM EDT [place] [address] Harini Muhammad, [facility] [place] [address] Other specified aftercare following surgery (Primary Dx) Discharge Disposition: Home Social History [...] this encounter Patient Instructions * Patient Instructions* Marva Chang RN - 04/16/2011 3:55 PM EDT Welcome to [employer]maato, your secure online access to your electronic medical record at [facility]. Using [employer]maato you will be able to send messages to your providers, view your test results, renew prescriptions, schedule appointments, and much more. Follow these instructions to enter your personal Smaato account for the first time: 1. Start your internet browser. Go to [email or web address] and click on the Smaato link. 2. Click SIGN UP NOW to go to the NEW MEMBER SIGN UP page. 3. Enter your Smaato Access Code exactly as it appears below. (You will not need this access code after you have completed the sign-up process.) ?? Your Smaato Access Code: [email or web address] ?? Expires: 05/18/11 04:20 PM ?? IMPORTANT: This Access Code will on the above mentioned date. If you do not sign up before this date, you will need to request a new Access Code number. 4. Enter your Date of (mm/dd/yyyy) and zip code click SUBMIT to go to the next page. 5. Create a Smaato identification (ID). This will be your [employer] login ID and cannot be changed, so think of one that is secure and easy to remember. 6. Create a password which you can change at any time. Your password must contain six (6) letters and two (2) numbers. 7. Enter your Password Reset Question and Answer. This will be used if you forget your password. 8. Enter your e-mail address. This is used to let you know when new information is available in Smaato. 9. Click SIGN UP to complete the process. You can now view your electronic medical record. If you have any questions about [employer]ato or your Access Code, please call for [place], for [place] or for [place]. If you need technical support, please e-mail [email or web address]. Remember, [employer] Direct-H is NOT for urgent needs! Always dial 911 for medical emergencies. documented in this encounter Progress Notes * Harini Muhammad APRN - 04/16/2011 4:28 PM EDT PLASTIC SURGERY OFFICE NOTE [employer] returned to our office today for post surgical follow-up Date of Surgery: 03/27/2011 Operation: excision of dog ears Complications: none Pain: 310 Specific complaints/comments: Patient complains of dog ear at end of new incision. Erythema and puritis improved from last visit. Physical Examination: Well approximated incision on bilateral bra roll area. Right side with 1cm area of erythema. No evidence of hematoma, seroma. Plan: Keflex x 1 week. Prescriptions provided: Keflex Follow up: PRN documented in this encounter Plan of Treatment Upcoming Encounters Date Type Department Care Team (Late st Contact Info) Description 11/16/2024 1:00 PM EST Office Visit General Surgery at [place] [phone] Paula Harris PA [facility] [place] [address] 01/26/2025 9:50 AM EDT Appointment Mammography/[place] [address] Joan Deutsch ONCOLOGY NURSE NAVIGATOR [facility] [place] [address] 01/26/2025 10:50 AM EDT Office [place] [phone] Joan Deutsch APRN [facility] [place] [address] documented as of this encounter Visit Diagnoses Diagnosis Other specified aftercare following surgery- Primary documented in this encounter Care Teams Cell Biologist Relationship Specialty Start Date End Date Mariluz Watts MD [address] [facility] [address] [place] [address] PCP - General 08/22/10 documented as of this encounter
--- OUTSIDE RECORDS SUMMARY | 2024-05-18 20:02 | XMS_ITS | Encounter Summary ---
Author Organization [facility] Address [address] [place] [address] Care Team Providers Care Frozen Food Selector Name Role Phone Mariluz Watts MD Primary Care Provider [phone] Encounter Details Date Type Department Care Team ([facility] st Contact Info) Description 05/12/[address] [facility] Pathology & Laboratory Medicine - [address] [address] Outr Resulting Lab, Provider Social History Tobacco [...] Procedure Name Priority Date/Time Associated Diagnosis Comments OVA/PARASITE EXAM Routine 05/11/2021 19: 50 EDT documented in this encounter Results * OVA/PARASITE EXAM (05/11/2021 19:50 EDT) Parasite No ova and parasites seen. 05/15/2021 14:51 EDT [facility] Feces SPECIMEN FROM RECTUM / Unknown 05/11/2021 19:50 EDT 05/12/2021 16:44 EDT Narrative [facility] - 05/15/2021 14:51 EDT (If Cryptosporidium, Cyclospora, or Microsporidium are suspected, specific tests must be requested.) Single negative specimen does not rule out the possibility of a parasitic infection. Provider Outr Resulting Lab MICROBIOLOGY - GENERAL ORDERABLES [facility] [address] [place] [address] documented in this encounter Visit Diagnoses Not on filedocumented in this encounter Care Teams Frozen Food Selector Relationship Specialty Start Date End Date Mariluz Watts MD [address] [place] [phone] PCP - General Family Medicine - Primary Care 12/26/22 documented as of this encounter
--- OUTSIDE RECORDS SUMMARY | 2024-05-18 20:02 | XMS_ITS | Encounter Summary ---
[place] [address] Care Team Providers Care Grid Operator Name Role Phone Mariluz Watts MD Primary Care Provider [phone] Encounter Details Date Type Department Care Team (Late st Contact Info) Description 11/01/2011 11:30 AM EST - 11/01/2011 11:59 PM [facility] [place] [address] Social History Tobacco Use Types Packs/Day Years [...] Sig Dispensed Refills Start Date End Date diclofenac 1 % Gel topical gelIndications:Breast cancer, stage 2 Apply 2 g topically 4 times daily as needed. 2 Tube 5 11/01/2011 01/25/2012 citalopram (CELEXA) 40 mg tabletIndications:depr ession Take 40 mg by mouth daily. Indications: Depression 05/20/2013 ARIMIDEX 1 mg tablet TAKE ONE TABLET BY MOUTH ONCE DAILY. 90 tablet 3 08/16/2011 07/25/2012 metroNIDAZOLE (METROGEL) 1 % gel 10/26/2010 2 TURMERIC, BULK, MISC 10/26/2010 012 multivitamin (THERAGRAN) tablet 10/26/2010 2 documented as of this encounter Plan of Treatment Upcoming Encounters Date Type Department Care Team (Late st Contact Info) Description 11/16/2024 1:00 PM EST Office [place] [phone] Paula Harrsi PA [facility] [place] [address] 01/26/2025 9:50 AM EDT Appointment Mammography/[place] [phone] Joan Deutsch BUSINESS DEAN [facility] [place] [address] 01/26/2025 10:50 AM EDT Office [place] [phone] Joan Deutsch BUSINESS DEAN [facility] [place] [address] documented as of this encounter Procedures Procedure Name Priority Date/Time Associated Diagnosis Comments MAMMO SCREENING CAD BILATERAL Routine 11/01/2011 12:00 PM EST documented in this encounter Results * MAMMO DIGITAL BILATERAL SCREENING WITH CAD (11/01/2011 12:00 PM EST) Anatomical Region Laterality Modality Breast Bilateral Mammography 11/01/2011 12:0 0 PM EST Narrative 11/02/2011 4:03 PM EST BILATERAL MAMMOGRAPHY ?? REASON FOR EXAM: Screening. History of Right breast cancer with BCT and bilateral breast reduction. ?? TECHNIQUE: Cranio-caudal (CC) and mediolateral oblique [...] The breasts are of scattered density. ? There are post-surgical changes in both breasts. ? CONCLUSION ?? This is a NEGATIVE mammogram (ACR Category 1). Routine screening mammography is recommended with the frequency dependent on the patient's age and breast cancer risk factors. ?? A letter has been sent to this patient by [facility]. Procedure Note Bella Dowling MD - 11/02/2011 BILATERAL MAMMOGRAPHY REASON FOR EXAM: Screening. History of Right breast cancer with BCT and bilateral breast reduction. TECHNIQUE: Cranio-caudal (CC) and mediolateral oblique (MLO) [...] in both breasts. CONCLUSION This is a NEGATIVE mammogram (ACR Category 1). Routine screeningmammography is recommended with the frequency dependent on the patient's age and breastcancer risk factors. A letter has been sent to this patient by the [facility]. Abrahan Merlos MD IMG MAMMO ORDERABLES documented in this encounter Visit Diagnoses Not on filedocumented in this encounter Care Teams Grid Operator Relationship Specialty Start Date End Date Mariluz Watts MD [address] [place] [address] PCP - General 08/22/10 documented as of this encounter
--- OUTSIDE RECORDS SUMMARY | 2024-05-18 20:02 | XMS_ITS | Encounter Summary ---
Author Organization [facility] [place] [address] Care Team Providers Care Outreach Nurse Name Role Phone Mariluz Watts MD Primary Care Provider [phone] Encounter Details Date Type Department Care Team (Late st Contact Info) Description 04/04/2010 Orders [place] [address] Gardenia Marquez MD [facility] [place] [address] Social History Tobacco Use Types Packs/Day Years Used Date Smoking Tobacco: Never Assessed [facility] Inpatient Questions Answer Date Recorded Does [...] Office Visit General Surgery at [place] [phone] Paula Harris PA [facility] [place] [address] 01/26/2025 9:50 AM EDT Appointment Mammography/DXA at [place] [phone] Joan Deutsch, [facility] [place] [address] 01/26/2025 10:50 AM EDT Office Visit General Surgery at [place] [phone] Joan Deutsch, [employer] B[employer]ING MACHINE OPERATOR [facility] [place] [address] documented as of this encounter Procedures Procedure Name Priority Date/Time Associated Diagnosis Comments SURGICAL PATHOLOGY REPORT Routine 04/04/2010 8:56 AM EDT documented in this encounter Results * Surgical Pathology Report (04/04/2010 8:56 AM EDT) Surgical Pathology Report [id number] ? Location: [facility] The signing pathologist has (i) examined the relevant preparation(s) for the specimen(s) and (ii) rendered or confirmed the diagnosis(es). . ?Pathology Surgical Pathology Final Report Clinical Information Specimen Submitted: A - Rt breast deep margin 7 o'clock, right breast B - Rt breast deep margin 7:30 o'clock, right breast Clinical History: Not provided Clinical Diagnosis: Right breast cancer Gross Description A - Labeled/Fixative: Right breast deep margin 7 o'clock, fresh. Qty/Size/Weight: ?One, 3.5 x 1.0 x 0.3 cm, 1 g. Tissue Description: ?? Yellow adipose tissue with black ink on one surface. Sections/Processi ng: ??The specimen is serially sectioned perpendicular to ?black ink and entirely submitted in (A1-A4). ??(T4) B - Labeled/Fixative: Right breast deep margin 7:30 o'clock, right breast; ?fresh. Qty/Size/Weight: ?One, 2.0 x 1.7 x 0.5 cm, 1 g. Tissue Description: ?? Yellow, lobular adipose tissue with black ink on the ?outer surface. Sections/Processi ng: ??The specimen is serially sectioned. ??(T4) ??aje/JDK Microscopic Description Slides reviewed, microscopic description not recorded. Diagnosis Specimen: ? A - Right breast deep margin 7 o'clock Specimen Size: ?3.5 x 1.0 x 0.3 cm. Residual malignancy: ?Absent Prior Bx's correlation: Other findings: ? Surgical site change. Specimen: ? B - Right breast deep margin 7:30 o'clock Specimen Size: ?2.0 x 1.7 x 0.5 cm. Residual malignancy: ?Absent Prior Bx's correlation: Other findings: ? Surgical site change. CR-0 04/06/10 VAM 04/06/10 Verified by: ? Devendra Trevino MD ?Pathologist ?(Electronic Signature) The attending pathologist whose signature appears on this report has reviewed all diagnostic slides and has edited the gross and/or microscopic portion of the report in rendering the final pathologic diagnosis. [facility] 04/04/2010 8:56 AM EDT Gardenia Marquez MD PATHOLOGY/CYTOLOGY ORDERABLES Performing Organization Address City/State/[facility] [[email or web address]] Co de Phone Number [facility] documented in this encounter Visit Diagnoses Not on filedocumented in this encounter Care Teams Outreach Nurse Relationship Specialty Start Date End Date Mariluz Watts MD [address] [place] [address] PCP - General 08/22/10 documented as of this encounter
--- OUTSIDE RECORDS SUMMARY | 2024-05-18 20:02 | XMS_ITS | Encounter Summary ---
Author Organization [facility] [place] [address] Care Team Providers Care Rug Hooker Name Role Phone Mariluz Watts MD Primary Care Provider [phone] Encounter Details Date Type Department Care Team (Late st Contact Info) Description 10/19/2010 3:45 PM EST [place] [address] Ruben Oconnor MD [address] [place] [address] Discharge Disposition: Home Social History Tobacco Use [...] PM EST Office [place] [address] Paula Harris PA [facility] [place] [address] 01/26/2025 9:50 AM EDT Appointment Mammography[place] [address] Joan Deutsch, [facility] [place] [address] 01/26/2025 10:50 AM EDT Office [place] [address] Joan Deutsch, [facility] [place] [address] documented as of this encounter Visit Diagnoses Not on filedocumented in this encounter Care Teams Rug Hooker Relationship Specialty Start Date End Date Mariluz Watts MD [address] [place] [address] [address] [place] [address] PCP - General 08/22/10 documented as of this encounter
--- OUTSIDE RECORDS SUMMARY | 2024-05-18 20:02 | XMS_ITS | Encounter Summary ---
Author Organization [facility] [place] [address] Care Team Providers Care Hand Stone Polisher Name Role Phone Unavailable Primary Care Provider Unavailabl e Encounter Details Date Type Department Care Team (Late st Contact Info) Description 08/14/2010 10:00 AM EST - 08/14/2010 11:59 PM EST Hospital Encounter [place] [address] Mari Paniagua MD [facility] [place] [address] Social History Tobacco Use Types Packs/Day Years [...] PM EST Office Visit [place] [phone] Paula Harris PA [facility] [place] [address] 01/26/2025 9:50 AM EDT Appointment Mammography/[place] [phone] Joan Deutsch, [facility] [place] [address] 01/26/2025 10:50 AM EDT Office Visit [place] [phone] Joan Deutsch, [facility] [place] [address] documented as of this encounter Visit Diagnoses Not on filedocumented in this encounter
--- OUTSIDE RECORDS SUMMARY | 2024-05-18 20:02 | XMS_ITS | Encounter Summary ---
Author Organization [facility] [place] [address] Care Team Providers Care Route Sales Delivery Drivers Supervisor Name Role Phone Mariluz Watts MD Primary Care Provider [phone] Encounter Details Date Type Department Care Team (Late st Contact Info) Description 10/26/2010 10:30 AM EST Procedure visit [place] [address] Social History Tobacco Use Types Packs/Day Years [...] PM EST Office [place] [address] Paula Harris PA [facility] [place] [address] 01/26/2025 9:50 AM EDT Appointment Mammography/[place] [address] Joan Deutsch APRN [facility] [place] [address] 01/26/2025 10:50 AM EDT Office [place] [address] Joan Deutsch APRN [facility] [place] [address] documented as of this encounter Visit Diagnoses Not on filedocumented in this encounter Care Teams Route Sales Delivery Drivers Supervisor Relationship Specialty Start Date End Date Mariluz Watts MD [address] [place] [address] PCP - General 08/22/10 documented as of this encounter
--- OUTSIDE RECORDS SUMMARY | 2024-05-18 20:02 | XMS_ITS | Encounter Summary ---
Author Organization [facility] [place] [address] Care Team Providers Care Guest Services Name Role Phone Mariluz Watts MD Primary Care Provider [phone] Encounter Details Date Type Department Care Team (Latest Contact Info) Description 01/25/2012 2:17 PM EDT - 01/25/2012 11:59 PM EDT Hospital Encounter XRay at [address] [place] [address] S/P hip replacement; Left knee pain Social History Tobacco Use [...] Sig Dispensed Refills Start Date End Date tretinoin (RETIN-A) 0.05 % creamIndications:Rosac ea Apply topically nightly. 45 g 1 11/13/2011 08/27/2012 erythromycin (CAIN-TAB) 250 mg EC tabletIndications:Leonie cea Take 1 tablet by mouth 2 times daily (with meals). 60 tablet 2 11/13/2011 02/21/2012 citalopram (CELEXA) 40 mg tabletIndications:depr ession Take [...] PM EST Office Visit General Surgery at [place] [phone] Paula Harris PA [facility] [place] [address] 01/26/2025 9:50 AM EDT Appointment Mammography/[place] [phone] Joan Deutsch APRN [facility] [place] [address] 01/26/2025 10:50 AM EDT Office [place] [phone] Joan Deutsch APRN [facility] [place] [address] documented as of this encounter Procedures Procedure Name Priority Date/Time Associated Diagnosis Comments XR JOINT TEAM ALIGNMENT AP LAT SCHUSS SKYLINE Routine 01/25/2012 2:55 PM EDT S/P hip replacement Left knee pain documented in this encounter Results * XR JOINT TEAM ALIGNMENT AP LAT SCHUSS SKYLINE (01/25/2012 2:55 PM EDT) Anatomical Region Laterality Modality N/A Radiographic Crystal ging 01/25/2012 2:55 PM EDT Addenda Addendum on 02/12/2012 1:52 PM EDT Addendum Begins ONE VIEW OF THE PELVIS, TWO VIEWS OF THE LEFT HIP AND ONE VIEW OF THE RIGHT HIP. ?? Addendum Ends Addendum on 02/08/2012 2:32 PM EDT Addendum Begins ONE VIEW OF THE PELVIS, TWO VIEWS OF THE LEFT HIP AND ONE VIEW OF THE RIGHT HIP. ?? Addendum Ends Narrative 01/25/2012 3:59 PM EDT STANDING KNEE ALIGNMENT AND PELVIS AND HIPS AND LEFT KNEE: ?? CLINICAL INDICATION: ??Left knee pain and status post left THR. Left hip pain. ?? TECHNIQUE: Separate images of the pelvis, knees and feet were acquired in the AP projection with the patient standing. ??In addition to routine views of the knee, these images were stitched together to form a composite image of the pelvis and legs allowing for evaluation of lower extremity alignment in the weight bearing position. Mechanical Portis: ??The patient is status post right total hip replacement. The right weightbearing axis is slightly medial to midline, 11 mm. The left leg weightbearing axis is displaced slightly medially relative to knee midline, approximately 11 mm. Bones are moderately osteopenic. ?? FINDINGS: ??There is mild bilateral medial compartmental narrowing, flattening, and some irregularity of the left medial compartment. Small left knee effusion. 9 mm calcification probable in the quadriceps tendon or in the joint bursa. Leonard view shows moderate lateral facet narrowing, right greater than left. Schuss views demonstrate ojwttvzi-ul-zffamx left medial compartmental narrowing and mild osteophytosis. ?? PELVIS AND HIPS: COMPARISON: ??12/23/08. ?? FINDINGS: ??Patient is status post right noncemented hip arthroplasty. No heterotopic bone formation. No obvious signs of loosening or infection. Mild left hip osteoarthritis. The sacroiliac joints are within normal limits. No labral-type calcifications detected. ?? Procedure Note Devaughn Barber MD - 02/12/2012 STANDING KNEE ALIGNMENT AND PELVIS AND HIPS AND LEFT KNEE: CLINICAL INDICATION: Left knee pain and status post left THR. Left hippain. TECHNIQUE: Separate images of the pelvis, knees and feet were acquired in the AP projection with the patient standing. In addition to routine views of the knee, these images were stitched together to form a composite image of the pelvis and legs allowing for evaluation of lower extremity alignment inthe weight bearing position. Mechanical Portis: The patient is status post right total hip replacement.The right weightbearing axis is slightly medial to midline, 11 mm. The leftleg weightbearing axis is displaced slightly medially relative to kneemidline, approximately 11 mm. Bones are moderately osteopenic. FINDINGS: There is mild bilateral medial compartmental narrowing,flattening, and some irregularity of the left medial compartment. Small left kneeeffusion. 9 mm calcification probable in the quadriceps tendon or in the jointbursa. Leonard view shows moderate lateral facet narrowing, right greater thanleft. Schuss views demonstrate [id number]-[id number] left medial compartmentalnarrowing and mild osteophytosis. PELVIS AND HIPS: COMPARISON: 12/23/08. FINDINGS: Patient is status post right noncemented hip arthroplasty. No heterotopic bone formation. No obvious signs of loosening or infection.Mild left hip osteoarthritis. The sacroiliac joints are within normal limits.No labral-type calcifications detected. Kian Ervin MD IMG DX ORDERABLES documented in this encounter Visit Diagnoses Diagnosis S/P hip replacement Hip joint replacement by other means Left knee pain Pain in joint, lower leg documented in this encounter Care Teams Guest Services Relationship Specialty Start Date End Date Mariluz Watts MD [address] [place] [address] PCP - General 08/22/10 documented as of this encounter
--- OUTSIDE RECORDS SUMMARY | 2024-05-18 20:02 | XMS_ITS | Encounter Summary ---
[place] [address] Care Team Providers Care Head Sawyer Automatic Name Role Phone Mariluz Watts MD Primary Care Provider [phone] Reason for Visit * Reason Comments Follow Up Surgery Encounter Details Date Type Department Care Team (Late st Contact Info) Description 11/01/2011 1:00 PM EST Follow-[place] [address] Blela Ly APRN [facility] [place] [place] [address] Breast cancer, stage 2 (Primary Dx) Discharge [...] Progress Notes * Bella Ly APRN - 11/01/2011 12:58 PM EST Diamond Gaming is a 65 y.o[address] Pt of Dr Marquez who returns in surgical follow up. She had routinescreening mammography performed in December 2009 with the finding of a new mass measuring approximately 2cm at 9:00 in the right breast. This prompted call back imaging including mammogram and u/s whichconfirmed a solid, spiculated mass. U/S guided biopsy revealed IDC/DCIS. Kimi then underwent MRI for surgical planning. This revealed a second ipsilateral lesion as well as 2 lesions in close proximity in the contralateral left breast. Additional imaging and biopsy revealed multifocal right breastcancer and left breast atypical papilloma. She opted for BCT with b/l simultaneous breast reduction. Kimi was brought to the OR 03/24/10. Pathology revealed: Lesions 1&2: Histologic Type: Invasive ductal carcinoma with lobular features Tumor Grade: Intermediate Iqhxhm-Pcnvo-Zkacmxmyag Score: 7 Tubular Differentiation: 3 Mitotic Rate: [...] sentinel nodes: 2 (Specimen A - Right [place] node) No. positive for carcinoma: 1 (H&E) No. with IHC (+) cells only: 0 (cells not seen by H&E, see Note*) No. negative for carcinoma: 1 (both H&E and IHC For positive nodes: Largest kristi deposit 0.2 cm Extranodal extension Absent Estrogen/Progestin receptors: Performed on blocks C2 and C11 ER immunoreactivity: Positive (see Diagnostic hanna*) VA immunoreactivity: Positive (see Diagnostic hanna*) HER2/shonda expression by FISH: Negative Kimi was returned to the OR for deep margin excision. This was negative for residual malignancy. Kimi declined chemotherapy and proceeded to whole breast xrt. THis was complicated by some fatiguebut generally, she handled it quite well. She is now taking arimidex. She has no complaints todya in the clinic. Energy level is improving. She has no headaches, sob, couhg, abd pain. She has chronicarthritis which is [...] border approximately 1cm. No additional masses appreciated. Abd: soft,non tender Mammogram today: pending A/P Doing well without evidence of recurrence or metastatic disease. Tolerating arimidex. Plan follow up in 1 year with bilateral mammogram. She will see Dr. Merlos in the interval time frame. documented in this encounter Plan of Treatment Upcoming Encounters Date Type Department Care Team (Late st Contact Info) Description 11/16/2024 1:00 PM EST Office [place] [phone] Paula Harris PA [facility] [place] [place] [address] 01/26/2025 9:50 AM EDT Appointment Mammography/[place] [phone] Joan Deutsch APRN [facility] [place] [address] 01/26/2025 10:50 AM EDT Office [place] [address] Joan Deutsch APRN [facility] [place] [address] documented as of this encounter Visit Diagnoses Diagnosis Breast cancer, stage 2- Primary Malignant neoplasm of breast (female), unspecified site documented in this encounter Care Teams Head Sawyer Automatic Relationship Specialty Start Date End Date Mariluz Watts MD [address] [place] [address] PCP - General 08/22/10 documented as of this encounter
--- OUTSIDE RECORDS SUMMARY | 2024-05-18 20:02 | XMS_ITS | Encounter Summary ---
[place] [address] Care Team Providers Care Welder Apprentice Combination Name Role Phone Mariluz Watts MD Primary Care Provider [phone] Encounter Details Date Type Department Care Team (Late st Contact Info) Description 03/27/2011 9:42 AM EDT - 03/27/2011 11:10 AM EDT Surgery [place] [address] Ruben Chaudhari MD [address] [place] [id number] EXC BENIGN LESION; INDRA >4.0CM, TRUNK (WRVU 3.52) Social History Tobacco Use Types Packs/Day Years Used Date Smoking Tobacco: Never Assessed Alcohol Use Standard Drinks/Week Comments No 0 (1 standard drink = 0.6 oz pur e alcohol) Sex and Gender Information Value Date Recorded Sex Assigned at Not on file Gender Identity Not on file Sexual Orientation Not on file documented as of this encounter Last Filed Vital Signs Vital Sign Reading Time Taken Comments Blood Pressure 143/90 03/27/2011 12:49 PM EDT Pulse 68 03/27/2011 12:30 PM EDT Temperature 36.8 ??C (98.2 ??F) 03/27/2011 12:09 PM E DT Respiratory Rate 18 03/27/2011 12:49 PM EDT Oxygen Saturation 100% 03/27/2011 12:55 PM EDT Inhaled Oxygen Concentration - - Weight 98.9 kg (218 lb) 03/27/2011 8:23 AM EDT Height 168.9 cm (5' 6.5) 03/27/2011 8:23 AM EDT Body Mass Index 34.66 03/27/2011 8:23 AM EDT documented in this encounter Discharge Instructions * Discharge Instructions* Francisco Javier Fraire, RN - 03/27/2011 1:08 PM EDT POST ANESTHESIA INSTRUCTIONS Go home, rest, [...] away in 12-24 hours. * Patient Instructions* Stan Enciso - 03/27/2011 10:19 AM EDT OK to shower after 48 hours. No need for dressings. Follow-up in plastic surgery clinic 7-10 days post-op. (04/04 at 415 pm) documented in this encounter Medications at Time of Discharge Medication Sig Dispensed Refills Start Date End Date OXYcodone (ROXICODONE) 5 mg immediate release tablet Take 1 tablet by mouth every 4 hours as needed for Pain. 20 tablet 0 03/27/2011 04/03/2011 anastrozole (ARIMIDEX) 1 mg tablet 1 MG = 1 Tablet(s), PO, Once daily 10/26/2010 04/06/2011 metroNIDAZOLE (METROGEL) 1 % gel 10/26/2010 07/25/2012 DARC[place] [facility] [place] 012 multivitamin (THERAGRAN) tablet 10/26/2010 07/25/2012 documented as of this encounter H&P Notes * Provider, Scanning - 03/29/2011 11:53 AM EDT * Provider, Scanning - 03/28/2011 1:56 PM EDT * Harini Muhammad APRN - 03/27/2011 10:06 AM EDT No changes in health since H&P with PCP Dr. Watts 03/13/2011. History of breast cancer with resection and breast reduction for symmetry. To OR for excision of dog ears bilateral breasts. documented in this encounter Miscellaneous Notes * Op Note - Ruben Chaudhari MD - 03/29/2011 3:17 PM EDT PREOPERATIVE DIAGNOSIS: Unsatisfactory scars, bilateral chest wall. POSTOPERATIVE DIAGNOSIS: Same. PROCEDURE: Revision of bilateral breast scars with excision and closure (~18 x 3 cm and ~18 x 3 cm). PRE-PROCEDURE VERIFICATION: Immediately prior to the start of the procedure, I confirmed the patient's identity, intended procedure, to include the site/side, the correct patient positioning & presence of the site noa (as indicated), and the availability of special equipment/implants (as indicated). OPERATIVE PROCEDURE: The planned excisions were marked with the patient in a standing position. Thepatient was then placed supine on the operating room table and the surgical areas were sterilely prepped and draped. Next, the planned skin incisions were made and the skin and subcutaneous tissue was excised sharply. Hemostasis was assured and the wound was closed in a two layers with 4-0 PDS suture. The wounds were dressed with skin glue and a sterile dressing. * Brief Op Note - Ruben Chaudhari MD - 03/29/2011 3:17 PM EDT See op note * Miscellaneous - Provider, Scanning - 03/28/2011 9:16 AM EDT * Miscellaneous - Provider, Scanning - 03/28/2011 9:13 AM EDT * Brief Op Note - Stan Enciso - 03/27/2011 12:01 PM EDT Brief Operative Note Patient Name: Diamond Gaming : [id number] MR#: [id number] Case Date: 03/27/2011 Surgeon: Surgeon(s) and Role: * RUBEN CHAUDHARI MD - Primary * STAN ENCISO MD - Surgeon Francesco * HARINI MUHAMMAD APRN Preoperative diagnosis: bilateral unsatisfactory scarring Postoperative diagnosis: bilateral unsatisfactory scarring Procedure(s): EXC BENIGN LESION; INDRA >4.0CM, TRUNK General Estimated Blood Loss: 10 cc Drains: none Disposition: awakened from anesthesia, extubated and taken to the recovery room in a stable condition, having suffered no apparent untoward event. Condition: doing well without problems (Please see the Surgical Encounter Summary for any Implant and Specimen details pertinent to this patient.) * Mickicellaneous - Provider, Scanning - 03/27/2011 8:09 AM EDT * OR Attestation - Ruben Chaudhari MD - 03/27/2011 12:00 AM EDT I was the attending physician supervising the resident in the above care and I was present with theresident for the entire procedure. * OR Attestation - Ruben Chaudhari MD - 03/27/2011 12:00 AM EDT Attestation: Case Date: 03/27/2011 I performed this procedure without the involvement of a resident. RUBEN CHAUDHARI documented in this encounter Plan of Treatment Upcoming Encounters Date Type Department Care Team (Late st Contact Info) Description 11/16/2024 1:00 PM EST Office [place] [address] Paula Harris PA [facility] [place] [address] 01/26/2025 9:50 AM EDT Appointment Mammography/[place] [phone] Joan Deutsch HUMAN PERFORMANCE TECHNOLOGIST [facility] [place] [address] 01/26/2025 10:50 AM EDT Office [place] [address] Joan Deutsch APRN [facility] [place] [address] documented as of this encounter Procedures Procedure Name Priority Date/Time Associated Diagnosis Comments EXC BENIGN LESION; INDRA >4.0CM, TRUNK (WRVU 3.52) 03/27/2011 10:46 AM EDT bilateral unsatisfactory scarring documented in this encounter Visit Diagnoses Not on filedocumented in this encounter Administered Medications Inactive Administered Medications - up to 3 most recent administrations Medication Order MAR Action Action Date Dose Rate Site BUpivacaine-epiNEPHrine 0.25 %-1:200,000 injection ONCE PRN, 1 dose, Starting on Sat03/27/11 at 1125, Until Sat03/27/11 at 1125, Intra-Operative (Intra-Procedure), Routine Given 03/27/2011 11:25 AM EDT 100 mg 19- Surgical Site fentaNYL (PF) 50 mcg/mL injection 1 dose, Starting on Sat03/27/11 at 1228, Until Sat03/27/11 at 1230, FRANCISCO JAVIER FRAIRE: Cabinet Override fentaNYL 50mcg/mL injection 25-50 mcg, Intravenous, EVERY 5 MIN PRN, Starting on Sat03/27/11 at 1212, Until Sat03/27/11 at 1905, Pain, for breakthrough pain, Hold for respiratory rate less than 10 per minute. Maximum dose: 250 mcg over one hour., PACU Recovery, Routine Given 03/27/2011 12:50 PM EDT 50 mcg Given 03/27/2011 12:30 PM EDT 50 mcg lactated ringers infusion 1,000 mL 1,000 mL, at 100 mL/hr, Intravenous, CONTINUOUS, Starting on Sat03/27/11 at 0845, Until Sat03/27/11 at 1905, Day of Surgery (Day of Procedure) New Bag 03/27/2011 12:13 PM EDT 1,000 mLs 100 mL/hr OXYcodone (ROXICODONE) immediate release tablet 5 mg 5 mg, Oral, EVERY 4 HOURS PRN, Starting on Sat03/27/11 at 1017, Until Sat03/27/11 at 1905, Pain, May repeat once after 30-60 minutes if pain unrelieved., Routine Given 03/27/2011 1:30 PM EDT 5 mg prochlorperazine (COMPAZINE) injection 5 mg 5 mg, Intravenous, EVERY 30 MIN PRN, 2 doses, Starting on Sat03/27/11 at 1212, Until Sat03/27/11 at 1905, Nausea, May repeat 5 mg once in 30 minutes. Consider metoclopramide if ineffective., PACU Recovery, Routine Given 03/27/2011 1:41 PM EDT 5 mg scopolamine (TRANSDERM-SCOP) 1.5 mg patch 1 patch 1 patch, Transdermal, ONCE, 1 dose, On Sat03/27/11 at 0915, Day of Surgery (Day of Procedure), Routine Given 03/27/2011 8:45 AM EDT scopolamine (TRANSDERM-SCOP) 1.5 mg patch 1 dose, Starting on Sat03/27/11 at 0843, Until Sat03/27/11 at 0847, MEKHI NIETO: Cabinet Override documented in this encounter Active and Recently Administered Medications Times are shown in EDT. Scheduled Medication Order 03/25/2011 03/26/2011 03/27/2011 scopolamine (TRANSDERM-SCOP) 1.5 mg patch 1 patch (COMPLETED) 1 patch, Transdermal, ONCE, 1 dose, On Sat03/27/11 at 0915, Day of Surgery (Day of Procedure), Routine 0845 (Given - Provid er: Mekhi Nieto RN)0915 (Due) Continuous Medication Order 03/25/2011 03/26/2011 03/27/2011 lactated ringers infusion 1,000 mL (CANCELED) 1,000 mL, at 100 mL/hr, Intravenous, CONTINUOUS, Starting on Sat03/27/11 at 0845, Until Sat03/27/11 at 1905, Day of Surgery (Day of Procedure) 0845 (Due)1213 (New Bag - Provider: Francisco Javier Fraire RN) PRN Medication Order 03/25/2011 03/26/2011 03/27/2011 BUpivacaine-epiNEPHrine 0.25 %-1:200,000 injection (COMPLETED) ONCE PRN, 1 dose, Starting on Sat03/27/11 at 1125, Until Sat03/27/11 at 1125, Intra-Operative (Intra-Procedure), Routine 1125 (Given - Provid er: Stan Enciso) fentaNYL 50mcg/mL injection (CANCELED) 25-50 mcg, Intravenous, EVERY 5 MIN PRN, Starting on Sat03/27/11 at 1212, Until Sat03/27/11 at 1905, Pain, for breakthrough pain, Hold for respiratory rate less than 10 per minute. Maximum dose: 250 mcg over one hour., PACU Recovery, Routine 1230 (Given - Provid er: Francisco Javier Fraire, [place])1250 (Given - Provider: Francisco Javier Fraire RN) OXYcodone (ROXICODONE) immediate release tablet 5 mg (CANCELED) 5 mg, Oral, EVERY 4 HOURS PRN, Starting on Sat03/27/11 at 1017, Until Sat03/27/11 at 1905, Pain, May repeat once after 30-60 minutes if pain unrelieved., Routine 1330 (Given - Provid er: Mekhi Nieto RN) prochlorperazine (COMPAZINE) injection 5 mg (CANCELED)(Linked Group 1) 5 mg, Intravenous, EVERY 30 MIN PRN, 2 doses, Starting on e 03/27/11 at 1212, Until Sat03/27/11 at 1905, Nausea, May repeat 5 mg once in 30 minutes. Consider metoclopramide if ineffective., PACU Recovery, Routine 1341 (Given - Provid er: Mekhi Nieto RN) Linked Groups Order Group 1: ondansetron (ZOFRAN) injection 4 mg (CANCELED) 4 mg, Intravenous, EVERY 30 MIN PRN, 2 doses, Starting on Sat03/27/11 at 1212, Until e 03/27/11 at 1905, Nausea, May repeat 4 mg once in 30 minutes. Consider prochlorperazine if ineffective., PACU Recovery, Routine Or prochlorperazine (COMPAZINE) injection 5 mg (CANCELED)Jump to med 5 mg, Intravenous, EVERY 30 MIN PRN, 2 doses, Starting on Sat03/27/11 at 1212, Until Tu03/27/11 at 1905, Nausea, May repeat 5 mg once in 30 minutes. Consider metoclopramide if ineffective., PACU Recovery, Routine Or metoclopramide (REGLAN) injection 10 mg (CANCELED) 10 mg, Intravenous, EVERY 30 MIN PRN, 2 doses, Starting on Sat03/27/11 at 1212, Until 03/27/11 at 1905, Nausea, Avoid in patients greater than 60 years old., PACU Recovery, Routine documented in this encounter Care Teams Welder Apprentice Combination Relationship Specialty Start Date End Date Mariluz Watts MD [address] [place], [place] [address]Y [facility] [address] [place] [address] PCP - General 08/22/10 documented as of this encounter
--- OUTSIDE RECORDS SUMMARY | 2024-05-18 20:02 | XMS_ITS | Encounter Summary ---
[place] [address] Care Team Providers Care Bulk Folder Name Role Phone Mariluz Watts MD Primary Care Provider Reason for Referral * Physical Therapy (Routine) - Complete - Patient Will Schedule External Appt Specialty Diagnoses / Procedures Referred By John lyons Referred To Contact Physical Therapy Diagnoses DJD (degenerative joint disease) of hip Kian Ervin MD [address] [place] [address] Referral ID Status Reason Start Date Expiration Date Visits Requested Visits Authorized [id number] Complete - Patient Will Schedule External Appt Evaluate and Treat 02/01/2012 07/30/2012 12 12 Encounter Details Date Type Department Care Team (Late st Contact Info) Description 01/24/2012 Orders [place] [address] Kian Ervin MD [address] [place] [address] S/P hip replacement; Left knee pain; Left hip pain; DJD (degenerative joint disease) of hip Social [...] PM EST Office [place] [address] Paula Harris PA [facility] [place] [address] 01/26/2025 9:50 AM EDT Appointment Mammography/DXA at [place] [phone] Joan Deutsch BROADCAST DIRECTOR OPERATIONS [facility] [place] [address] 01/26/2025 10:50 AM EDT Office Visit General Surgery at [place] [phone] Joan Deutsch BROADCAST DIRECTOR OPERATIONS [facility] [place] [address] Scheduled Referrals Name Type Priority Associated Diagnoses Orde r Schedule REFERRAL TO PHYSICAL THERAPY Outpatient Referral Routine DJD (degenerative joint disease) of hip Ordered: 02/01/2012 documented as of this encounter Results * XR JOINT TEAM [...] alignment in the weight bearing position. Mechanical [place]: ??The patient is status post right total [...] quadriceps tendon or in the joint bursa. Sprague view shows moderate lateral facet narrowing, right greater than left. Schuss views demonstrate [id number] left medial compartmental narrowing and mild osteophytosis. [...] extremity alignment inthe weight bearing position. Mechanical [place]: The patient is status post right total [...] the quadriceps tendon or in the jointbursa. Sprague view shows moderate lateral facet narrowing, right greater thanleft. Schuss views demonstrate [id number] left medial compartmentalnarrowing and mild osteophytosis. PELVIS [...] knee pain Pain in joint, lower leg Left hip pain Pain in joint, pelvic region and thigh DJD (degenerative joint disease) of hip Osteoarthrosis, unspecified whether generalized or localized, pelvic region and thigh S/P hip replacement Hip joint replacement by other means Left knee pain Pain in joint, lower leg documented in this encounter Care Teams Bulk Folder Relationship Specialty Start Date End Date Mariluz Watts MD [address] [facility] [address] [place] [address] PCP - General 08/22/10 documented as of this encounter
--- OUTSIDE RECORDS SUMMARY | 2024-05-18 20:02 | XMS_ITS | Encounter Summary ---
Author Organization Formerly [facility] [place] [place] [address] Care Team Providers Care Medical Device Sales Consultant Name Role Phone Mariluz Watts MD Primary Care Provider Encounter Details Date Type Department Care Team (Late st Contact Info) Description 10/26/2010 11:00 AM EST Follow-[place] [address] Social History Tobacco Use Types Packs/Day Years [...] PM EST Office [place] [address] Paula Harris PA [facility] [place] [address] 01/26/2025 9:50 AM EDT Appointment Mammography/[place] [address] Joan Deutsch, GE [facility] [place] [address] 01/26/2025 10:50 AM EDT Office [place] [address] Joan Deutsch PANEL WIRER [facility] [place] [address] documented as of this encounter Visit Diagnoses Not on filedocumented in this encounter Care Teams Medical Device Sales Consultant Relationship Specialty Start Date End Date Mariluz Watts MD [address] [place] [address] PCP - General 08/22/10 documented as of this encounter
--- OUTSIDE RECORDS SUMMARY | 2024-05-18 20:02 | XMS_ITS | Encounter Summary ---
Author Organization [facility] [place] [address] Care Team Providers Care Corrosion Control Specialist Name Role Phone Mariluz Watts MD Primary Care Provider [phone] Encounter Details Date Type Department Care Team (Latest Contact Info) Description 01/25/2012 2:17 PM EDT - 01/25/2012 11:59 PM EDT Hospital Encounter XRay at [address] [place] [address] S/P hip replacement Social History Tobacco Use Types [...] PM EST Office Visit General Surgery at [place] [phone] Paula Harris PA [facility] [place] [address] 01/26/2025 9:50 AM EDT Appointment Mammography/[place] [phone] Joan Deutsch APRN [facility] [place] [address] 01/26/2025 10:50 AM EDT Office [place] [phone] Joan Deutsch TRANSITION ASSISTANT [facility] [place] [address] documented as of this encounter Procedures Procedure Name Priority Date/Time Associated Diagnosis Comments XR PELVIS AND HIP BILAT (GENERIC) Routine 01/25/2012 2:55 PM EDT Hip joint replacement by other means documented in this encounter Results * XR PELVIS 1 VIEW & HIPS 1 VIEW EACH (01/25/2012 2:55 PM EDT) Anatomical Region Laterality Modality Pelvis, Hip Bilateral Radiographic Crystal ging 01/25/2012 2:55 PM EDT [...] alignment in the weight bearing position. Mechanical [place]: ??The patient is status post right total [...] quadriceps tendon or in the joint bursa. [place] view shows moderate lateral facet narrowing, right greater than left. Schuss views demonstrate [id number] left medial compartmental narrowing and mild osteophytosis. [...] extremity alignment inthe weight bearing position. Mechanical [place]: The patient is status post right total [...] the quadriceps tendon or in the jointbursa. [place] view shows moderate lateral facet narrowing, right greater thanleft. Schuss views demonstrate [id number] left medial compartmentalnarrowing and mild osteophytosis. PELVIS [...] means documented in this encounter Care Teams Corrosion Control Specialist Relationship Specialty Start Date End Date Mariluz Watts MD [address] [place] [address] PCP - General 08/22/10 documented as of this encounter
--- OUTSIDE RECORDS SUMMARY | 2024-05-18 20:02 | XMS_ITS | Encounter Summary ---
Author Organization [facility] Address [address] [place] [address] Care Team Providers Care Thermal Cutting Tracer Machine Operator Name Role Phone Mariluz Watts MD Primary Care Provider [phone] Encounter Details Date Type Department Care Team ([facility] st Contact Info) Description 01/17/2022 Lab Requisition [facility] Pathology & Laboratory Medicine - [address] [address] Outr Resulting Lab, Provider Social History Tobacco [...] Procedure Name Priority Date/Time Associated Diagnosis Comments ZZCOVID-19 TEST [facility] PCR Today 01/16/2022 20:11 EDT COVID-19 TESTING Routine 01/16/2022 20:1 1 EDT documented in this encounter Results * COVID-19 TEST [facility] PCR (01/16/2022 20:11 EDT) Swab 01/16/2022 20:1 1 EDT 01/17/2022 20:09 EDT Provider Outr Resulting Lab MICROBIOLOGY - GENERAL ORDERABLES [facility] [address] [place] [address] * COVID-19 TESTING (01/16/2022 20:11 EDT) COVID-19 rt-PCR Result Negative Negative 01/18/2022 12:27 EDT [facility] Comment: This test has not been FDA cleared or approved. This test has been authorized by FDA under an EUA for use by authorized laboratories. This test has been authorized only for detection of nucleic acid from 2019-nCoV, not for any other viruses or pathogens. This test is only authorized for the duration of the declaration that circumstances exist justifying the authorization of emergency use of in vitro diagnostic tests for detection and/or diagnosis of 2019-nCoV under section 564(b)(1) of Act, 21 U.S.C ?? 360bbb-3(b) (1), unless the authorization is terminated or revoked sooner. Negative results do not preclude 2019-nCoV infection and should not be used as the sole basis for treatment or other patient management decisions. Negative results must be combined with clinical observations, patient history, and epidemiological information. Testing was performed using the shanelle SARS-CoV-2 assay ([employer] on the Shanelle 6800 System Performing Lab Shanelle 6800 [facility] Lab 01/18/2022 12:27 EDT [facility] Swab 01/16/2022 20:1 1 EDT 01/17/2022 20:09 EDT Provider Outr Resulting Lab MICROBIOLOGY - GENERAL ORDERABLES [facility] [address] [place] [address] documented in this encounter Visit Diagnoses Not on filedocumented in this encounter Care Teams Thermal Cutting Tracer Machine Operator Relationship Specialty Start Date End Date Mariluz Watts MD [address] [place] [id number] PCP - General Family Medicine - Primary Care 12/26/22 documented as of this encounter
--- OUTSIDE RECORDS SUMMARY | 2024-05-18 20:02 | XMS_ITS | Encounter Summary ---
[place] [address] Care Team Providers Care Refrigerating Technician Name Role Phone Mariluz Watts MD Primary Care Provider [phone] Reason for Visit * Reason Onset Date Comments Medication Refill 08/16/2011 Encounter Details Date Type Department Care Team (Late st Contact Info) Description 08/16/2011 Refill Hematology [place] [address] Abrahan Merlos MD [facility] DR HEMATOLOGY/[place] [address] Social History Tobacco Use Types Packs/Day Years [...] Telephone Encounter - Gemini Lawrence RN - 08/16/2011 1:00 PM EST Script generated 08/14/2011 then signed by Nhi Chadwick APRN. Patient changing pharmacy to [facility]. Patient requesting medication be mailed to to her home address. [facility] are aware. documented in this encounter Plan of Treatment Upcoming Encounters Date Type Department Care Team (Late st Contact Info) Description 11/16/2024 1:00 PM EST Office Visit [place] [phone] Paula Harris PA [facility] [place] [address] 01/26/2025 9:50 AM EDT Appointment Mammography/DXA at [place] [phone] Joan Deutsch APRN [facility] [place] [address] 01/26/2025 10:50 AM EDT Office Visit [place] [phone] Joan Deutsch APRN [facility] [place] [address] documented as of this encounter Visit Diagnoses Not on filedocumented in this encounter Care Teams Refrigerating Technician Relationship Specialty Start Date End Date Mariluz Watts MD [address] [place] [address] [address] [place] [address] PCP - General 08/22/10 documented as of this encounter
--- OUTSIDE RECORDS SUMMARY | 2024-05-18 20:02 | XMS_ITS | Encounter Summary ---
[facility] [place] [id number] Care Team Providers Care Business Programmer Name Role Phone Mariluz Watts MD Primary Care Provider [phone] Reason for Visit * Reason Comments Rosacea Encounter Details Date Type Department Care Team (Late st Contact Info) Description 11/13/2011 2:20 PM EST Office [place] [address] Chayo Willingham MD [facility] [place] [address] Rosacea (Primary Dx); Sebaceous hyperplasia Discharge Disposition: [...] of this encounter Progress Notes * Ken Adrian MD - 11/13/2011 3:40 PM EST I was the supervising physician working with dermatology resident Dr. Chayo Willingham in the dermatology clinic during this patient visit. The level of Resident supervision for this patient visit was indirect supervision with direct supervision immediately available. (definition: [facility]ME Policy Statement on Graduate Medical Education, Supervision of Graduate Medical Trainees) I was immediately available to Dr. Willingham for questions and discussion regarding this visit. I have reviewed his encounternote details and level of service. * Chayo Willingham MD - 11/13/2011 2:39 PM EST DERMATOLOGY - NEW PATIENT NOTE Date of service: 11/13/2011 Diamond Gaming : 1945 Dermatology Resident Note: Chayo Willingham MD Chief Problem: Rosacea Chief Complaint Patient presents with ??? Rosacea Ms. Diamond Gaming is a 65 y.o. female. This is a new patient to me, self referred specifically forthe evaluation and management of the above problem. HPI: Ms. Gaming presents for Rosacea that she has had for 24 years. She has been treated with Erythromycin PO for many years which she stopped about 9 years ago and more recently was using Metrogel. She discontinued the Metrogel 6 weeks ago as she was having a flare and just wanted to stop using everything and start new. She started to flare with cysts and more pustules since being off the Metrogel. She reports that her eyes are also involved with a sandpaper type feeling. She has been on Arimidex for her breast cancer that was diagnosed one year ago. Her skin has becomeexacerbated since being on the Arimidex. She reports not doing any treatments to her face in over one month and washes her face with cool water and pats dry. 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 She avoids spicy foods and ETOH.She does get pimples around her nose, but mostly has noticed more yellow bumps on her forehead/cheeks. No other skin concerns today, doing well. Past Skin History: Rosacea No skin cancer Medical History: Patient Active Problem List Diagnoses Code ??? Anxiety associated with depression 300.4BM ??? 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 Diverticulosis 562.10G ??? Degenerative joint disease 715.90AF ??? Breast cancer, stage 2 174.9BV ??? Rosacea 695.3 ??? GI bleeding 578.9AB Medications: Current outpatient prescriptions ordered prior to encounter Medication Sig Dispense Refill ??? diclofenac 1 % Gel topical gel Apply 2 g topically 4 times daily as needed. 2 Tube 5 ??? citalopram (CELEXA) 40 mg tablet Take 40 mg by mouth daily. Indications: Depression ??? ARIMIDEX 1 mg tablet TAKE ONE TABLET BY MOUTH ONCE DAILY. 90 tablet 3 ??? ERGOCALCIFEROL, VITAMIN D2, (VITAMIN D ORAL) Take 2,200 Units by mouth daily. ??? ibuprofen (ADVIL;MOTRIN) 600 mg tablet 600MG, PO, Four times daily PRN ??? metroNIDAZOLE (METROGEL) 1 % gel ??? TURMERIC, BULK, MISC ??? multivitamin (THERAGRAN) tablet Allergies: Allergies Allergen Reactions ??? Tetracycline Analogues Anaphylaxis ??? Hymenoptera Allergenic Extract Anaphylaxis Bee Stings Family History: No family h/o melanoma, or Non Melanoma Skin Cancer Social/Occupational History: here with her granddaughter. Review of Systems: General: Feels well Skin: As per HPI; no other skin concerns Examination: An abbreviated skin exam was performed. This includes: Face Specific skin findings: 1. Diffuse erythema and telangiectasias on central face. 2. Numerous 1mm-2mm yellow umbilicated papules on glabella/forehead/nasolabial fold/medial cheeks. No pustules or cysts Diagnosis/Assessment/Treatment Plan: 1. Rosacea + Sebaceous Hyperplasia -Discussed rosacea pathophysiology. Discussed treatment options including oral and topical treatment. Will avoid tetracycline/doxy d/t her allergy. -Educated on diagnosis of sebaceous hyperplasia and treatment options including topical retinoids and laser. -Will start with Erythromycin 250mg twice daily and Tretinoin 0.05 % cream apply nightly as skin tolerated . Educated on potential ADEs including GI upset with erythromycin and xerosis with tretinoin. -She will use her metrogel as needed. -Educated on the importance of proper sun protection. -She will call with any concerns. RTC in 3 months. Instructed to call for questions, concerns. Chayo Willingham MD Resident in Dermatology [facility] Patient seen and evaluated with staff edge trimmer: Chetan Adrian MD Section of Dermatology [facility] documented in this encounter Plan of Treatment Upcoming Encounters Date Type Department Care Team (Late st Contact Info) Description 11/16/2024 1:00 PM EST Office [place] [address] Paula Harris PA [facility] [place] [address] 01/26/2025 9:50 AM EDT Appointment Mammography/DXA at [place] [phone] Joan Deutsch [facility] [place] [address] 01/26/2025 10:50 AM EDT Office Visit [place] [phone] Joan Deutsch WHITEWASHER [facility] [place] [address] documented as of this encounter Visit Diagnoses Diagnosis Rosacea- Primary Sebaceous hyperplasia Other specified disease of sebaceous glands documented in this encounter Care Teams Business Programmer Relationship Specialty Start Date End Date Mariluz Watts MD [address] [place] [address] [address] [place] [address] PCP - General 08/22/10 documented as of this encounter
--- OUTSIDE RECORDS SUMMARY | 2024-05-18 20:02 | XMS_ITS | Encounter Summary ---
[place] [address] Care Team Providers Care E Learning Manager Name Role Phone Mariulz Watts MD Primary Care Provider [phone] Encounter Details Date Type Department Care Team (Late st Contact Info) Description 01/10/2004 Orders [place] [address] Gallito Travis MD [facility] [place] [address] Social History Tobacco Use Types Packs/Day Years Used Date Smoking Tobacco: Never Assessed DH IPV Inpatient Questions Answer Date Recorded [...] PM EST Office [place] [address] Paula Harris PA [facility] [place] [address] 01/26/2025 9:50 AM EDT Appointment Mammography/[place] [phone] Joan Deutsch, [facility] [place] [address] 01/26/2025 10:50 AM EDT Office [place] [address] Joan Deutsch, [facility] [place] [address] documented as of this encounter Procedures Procedure Name Priority Date/Time Associated Diagnosis Comments SURGICAL PATHOLOGY REPORT Routine 01/10/2004 9:35 AM EDT documented in this encounter Results * Surgical Pathology Report (01/10/2004 9:35 AM EDT) Surgical Pathology Report [id number] ? Location: OPW The signing pathologist has (i) examined the relevant preparation(s) for the specimen(s) and (ii) rendered or confirmed the diagnosis(es). . ?Pathology Surgical Pathology Final Report Clinical Information Specimen Submitted: A - Right breast Clinical History: Oval well defined mass CD: FA vs cyst (FCD) vs ca. Report to: Mariluz Watts MD [facility] [address] [place] [address] Gross Description Labeled/Fixativ e: ? Right breast, formalin. Qty/Size/Weight : ?Nine intact needle core biopsies, 0.5 x 0.3 x 0.3 cm ?to 1.2 x 0.3 x 0.3 cm. ??Cylindrical cores of bonilla-white and yellow-white, fatty and fibrofatty tissue with an additional 0.9 x 0.9 x 0.3-cm aggregate of similar, bonilla-white and yellow-castillo, fibrofatty tissue. Sections/Proces sing: ??The larger intact cores are submitted in (1), and the ?smaller cores and the separate aggregate are ?submitted in (2). ??(T2) ??aje/EJR Microscopic Description Slides reviewed, microscopic description not recorded. Diagnosis Needle biopsies: ?Right breast. Diagnosis: ?Fibroadenoma with benign ductal hyperplasia Microcalcificat ions: ??NA CR-0 01/11/04 VAM 01/11/04 Verified by: ? Devendra Trevino MD ?Pathologist ?(Electronic Signature) The attending pathologist whose signature appears on this report has reviewed all diagnostic slides and has edited the gross and/or microscopic portion of the report in rendering the final pathologic diagnosis. Comment Multiple deeper levels are reviewed. VALERIE DYERENNIUM 01/10/2004 9:35 AM EDT Gallito Travis MD PATHOLOGY/CYTOLOGY O RDERABLES VALERIE TOPETE documented in this encounter Visit Diagnoses Not on filedocumented in this encounter Care Teams E Learning Manager Relationship Specialty Start Date End Date Mariluz Watts MD [address] [place] [address] PCP - General 08/22/10 documented as of this encounter
--- OUTSIDE RECORDS SUMMARY | 2024-05-18 20:02 | XMS_ITS | Clinical Summary ---
Author Organization [facility] Address [address] [place] [address] Care Team Providers Care Assistant Mechanic Name Role Phone Mariluz Watts MD Primary Care Provider [phone] Social History Tobacco Use Types Packs/Day Years Used Date Smoking Tobacco: Never Assessed Sex and Gender Information Value Date Recorded Sex Assigned at Not on file Gender Identity Not on file Sexual Orientation Not on file Plan of Treatment Health Maintenance Due Date Last Done Comments Hepatitis C Screen 1945 RSV Immunization ( o r 60+ Years) (1 - 1-dose 60+ series) 2007 Fall Risk Screening 12/16/2012 COVID-19 Vaccine ( season) 2023 Care Teams Assistant Mechanic Relationship Specialty Start Date End Date Mariluz Watts MD [address] [place] [phone] PCP - General Family Medicine - Primary Care 12/26/22
--- OUTSIDE RECORDS SUMMARY | 2024-05-18 20:02 | XMS_ITS | Encounter Summary ---
[place] [address] Care Team Providers Care Instructional Systems Design Consultant Name Role Phone Mariluz Watts MD Primary Care Provider [phone] Reason for Visit * Reason Comments Radiation Follow-up Right Breast Cancer Encounter Details Date Type Department Care Team (Latest Contact Info) Description 09/04/2011 1:33 PM EST - 09/04/2011 11:59 PM [facility] Encounter [place] [address] Stephanie Fernandez, [address] RADIATION ONCOLOGY [place], [place] [id number] Breast cancer, stage 2 Discharge Disposition: Home [...] Sign Reading Time Taken Comments Blood Pressure 137/80 09/04/2011 1:40 PM EST Pulse 76 09/04/2011 1:40 PM EST Temperature 36.5 ??C (97.7 ??F) 09/04/2011 1:40 PM ES T Respiratory Rate 20 09/04/2011 1:40 PM EST Oxygen Saturation 97% 09/04/2011 1:40 PM EST Inhaled Oxygen Concentration - - Weight 103.4 kg (228 lb) 09/04/2011 1:40 PM EST Height - - Body Mass Index 36.21 04/06/2011 2:17 PM EDT documented in this encounter Medications at Time of Discharge Medication Sig Dispensed Refills Start Date End Date citalopram (CELEXA) 40 mg tabletIndications:depr ession Take 40 mg by mouth daily. Indications: Depression 05/20/2013 ARIMIDEX 1 mg tablet TAKE ONE TABLET BY MOUTH ONCE DAILY. 90 tablet 3 08/16/2011 07/25/2012 metroNIDAZOLE (METROGEL) 1 % gel 10/26/2010 2 TURMERIC, BULK, MISC 10/26/2010 012 multivitamin (THERAGRAN) tablet 10/26/2010 2 documented as of this encounter Progress Notes * Stephanie Fernandez, INDOOR LANDSCAPE ARCHITECT - 09/04/2011 2:18 PM EST Subjective: Patient ID: Diamond Gaming is a 65 y.o. female who was treated with radiation therapy [id number] right breast cancer. She completed radiation therapy on 05/15/2010 and is in clinic today for scheduledfollow up. HPI Right breast IDC with lobular features, intermediate grade, 1.5cm and additional lesion 0.8cm, +ALI, -PNI, tx lumpectomy and bilateral breast reductions, there is a close deep margin that was re-excised, 1 of 2 sentinel LNs involved with 0.2cm of disease and no GENA. ER+, AZ+, [id number] pending. Note-left breast excisional biopsy showed a papilloma. DIAGNOSIS: breast cancer STAGE: Right- pT1c pN1 pMX PATHOLOGY: 03/24/10- Left breast excisional biopsy, right breast partial mastectomy and sentinel lymphadenectomy with bilateral breast reductions. RIGHT BREAST SPECIMEN FINDING: ---Pathologic Diagnosis--- Specimen (s): A - Right [place] node C - Right Partial Mastectomy E - Right Breast Cranial Margin F - Right Breast inferior medial margin Lesions 1&2: Histologic Type: Invasive ductal carcinoma with lobular features Tumor Grade: Intermediate Grtogp-Ejhmg-Bgjufdhznu Score: 7 Tubular Differentiation: 3 Mitotic Rate: [...] Findings: 1. Biopsy site change (lesion 3) on the left 2. Benign papilloma on the left 3. Fibrocystic disease with fibrosis, cysts and [...] sentinel nodes: 2 (Specimen A - Right [place] node) No. positive for carcinoma: 1 (H&E) No. with IHC (+) cells only: 0 (cells not seen by H&E, see Note*) No. negative for carcinoma: 1 (both H&E and IHC) For positive nodes: Largest kristi deposit 0.2 cm Extranodal extension Absent Estrogen/Progestin receptors: Performed on blocks C2 and C11 ER immunoreactivity: Positive (see Diagnostic hanna*) AZ immunoreactivity: Positive (see Diagnostic hanna*) HER2/shonda expression by FISH: pending Specimen: B - Left Breast, partial mastectomy D - Left Breast, deep margin Specimen Size: B - 30.0 x 13.4 x 3.5 cm D - 2.5 x 2.0 x 0.7 cm Diagnosis: Benign sclerosing papilloma Prior Bx's correlation: [id number], part B Other findings: Fibrocystic disease with scar, fibrosis and sclerosing adenosis. 04/04/10- re-excision showed no residual malignancy SURGERY: __x__lumpectomy+ breast reduction surgery, ____mastectomy, _x__ sentinel LN, ___ axillary dissection RADIOTHERAPY: Treatment site: right breast Beam arrangement: 3D/tangents Beam energy: 6/18 MV Start date: 05/15/10 End date: 06/22/10 Dose per fraction: 180 cGy Number of fractions: 28 Total dose: 5040 cGy SYSTEMIC THERAPY: aimidex Current outpatient prescriptions ordered prior to encounter Medication Sig Dispense Refill ??? ARIMIDEX 1 mg tablet TAKE ONE TABLET BY MOUTH ONCE DAILY. 90 tablet 3 ??? ERGOCALCIFEROL, VITAMIN D2, (VITAMIN D ORAL) Take 2,200 Units by mouth daily. ??? ibuprofen (ADVIL;MOTRIN) 600 mg tablet 600MG, PO, Four times daily PRN ??? metroNIDAZOLE (METROGEL) 1 % gel ??? TURMERIC, BULK, MISC ??? multivitamin (THERAGRAN) tablet Interim History: Ms Gaming reports that she is doing well at this time. She has not been able to wear a bra since completion of all of her treatments due to incisional discomfort. This is not bothersome to her. She does report ongoing fatigue. She does exercise daily generally walking about three miles a day. She denies persistent cough or headache. She has arthralgias which are persistent and arerelated to known OA. She feels that she is tolerating the Arimidex reasonably well. She has no chest wall tightness, no range of motion restrictions, no lymphedema. Review of Systems Constitutional: Positive for fatigue. Negative for fever, chills, diaphoresis, activity change, appetite change and unexpected weight change. Fatigue which is not changed HENT: Negative. Respiratory: Negative for cough, chest tightness, shortness of breath and wheezing. Cardiovascular: Negative for chest pain and leg swelling. Gastrointestinal: Negative. Genitourinary: Negative. Musculoskeletal: Positive for arthralgias. Negative for back pain and gait problem. Skin: Negative for wound. Rosacea has exacerbated and patient will make appointment with dermatology Neurological: Negative. Hematological: Negative. Psychiatric/Behavioral: Depression well controlled with reduced dose of celexa to 40 mg a day Recent Review Flowsheet Data View Complete Flowsheet Oncology Vitals 09/04/2011 Weight 103.42 kg Height - BSA (Calculated - sq m) - BMI (Calculated) - Temp 97.7 Temp src 1 Pulse 76 Heart Rate Source NIBP Resp 20 BP 137/80 BP Location Left arm Patient Position Sitting SpO2 97 Pain Level 0 FACES Pain Rating: Rest 0 - no hurt FACES Pain Rating: Activity 0 - no hurt Karnofsky Score 100 Oncology Vitals 09/04/2011 Height (cm) - Weight (kg) - BSA (m2) - Objective: Physical Exam Vitals reviewed. Constitutional: She is oriented to person, place, and time. She appears well- developed and well-nourished. No distress. HENT: Head: Normocephalic and atraumatic. Eyes: No scleral icterus. Neck: Neck supple. Cardiovascular: Normal rate and regular rhythm. Exam reveals no gallop and no friction rub. No murmur heard. Pulmonary/Chest: Effort normal and breath sounds normal. No respiratory distress. She has no wheezes. She has no rales. She exhibits no tenderness. Abdominal: Soft. Bowel sounds are normal. She exhibits no distension and no mass. No tenderness. She has no rebound and no guarding. Musculoskeletal: Normal range of motion. She exhibits no edema and no tenderness. Lymphadenopathy: She has no cervical adenopathy. She has no axillary adenopathy. Right: No supraclavicular adenopathy present. Left: No supraclavicular adenopathy present. Neurological: She is alert and oriented to person, place, and time. She exhibits normal muscle tone. Coordination normal. Skin: Skin is warm and dry. Rash noted. She is not diaphoretic. No erythema. No pallor. +rosecea face Psychiatric: She has a normal mood and affect. Her behavior is normal. Judgment and thought contentnormal. Breast____ no nipple discharge, no dryness, no erythema, no edema to radiated right breast Treated site: __X__Right or ____Left, __X__Breast or Chest wall Telangectasias: __X__None, ____Few; Moderate; Many and confluent Hypopigmentation: __X__None; ____Slight or localized; ____Marked or generalized Hyperpigmentation: __X__None; ____Slight or localized; ____Marked or generalized Fibrosis: _X____None; Increased density; ____Marked increased density + retraction; ____ Very marked Dry skin: __X__None; ____Asymptomatic; symptomatic; Interferes with ADL Cosmetic Result: Excellent; __X___Good;____ Fair; ____Poor BILATERAL MAMMOGRAPHY 10/26/2010 REASON FOR EXAM: Screening. History of Right breast cancer, BCT and breast reduction; new baseline. TECHNIQUE: Cranio-caudal (CC) and mediolateral oblique (MLO) views of both breasts obtained with direct digital capture. The exam was evaluated by CAD Version 8.3.17. FINDINGS: This is a negative mammogram (ACR Category 1). There is a stable fibroglandular pattern without significant change as compared to prior studies. There is no mammographic evidence of cancer. There are post-surgical changes in both breasts. The breasts are of scattered density. CONCLUSION This is a NEGATIVE mammogram (ACR Category 1). Routine screening mammography is recommended with the frequency dependent on the patient's age and breast cancer risk factors. Assessment and Plan: Right breast cancer: Ms Gaming is doing well post treatment of her right breast cancer with MI. Sheis scheduled to have her next mammogram in September. She continues on Arimidex which she is tolerating. She continues follow up with Dr Abrahan Merlos every six months. We will not plan any additional follow up in radiation oncology at this time. She is to call if she has any concerns. documented in this encounter Plan of Treatment Upcoming Encounters Date Type Department Care Team (Late st Contact Info) Description 11/16/2024 1:00 PM EST Office [place] [address] Paula Harris PA [facility] [place] [address] 01/26/2025 9:50 AM EDT Appointment Mammography/[place] [address] Joan Deutsch, [facility] [place] [address] 01/26/2025 10:50 AM EDT Office [place] [address] Joan Deutsch, INDOOR LANDSCAPE ARCHITECT [facility] [place] [address] documented as of this encounter Visit Diagnoses Diagnosis Breast cancer, stage 2 Malignant neoplasm of breast (female), unspecified site documented in this encounter Care Teams Instructional Systems Design Consultant Relationship Specialty Start Date End Date Mariluz Watts MD [address] [place] [address] PCP - General 08/22/10 documented as of this encounter
--- OUTSIDE RECORDS SUMMARY | 2024-05-18 20:02 | XMS_ITS | Referral Summary ---
Author Organization [facility] Address [address] [place] [address] Care Team Providers Care Hair Weaver Name Role Phone Mariluz Watts MD Primary Care Provider [phone] Social History Tobacco Use Types Packs/Day Years Used Date Smoking Tobacco: Never Assessed Sex and Gender Information Value Date Recorded Sex Assigned at Not on file Gender Identity Not on file Sexual Orientation Not on file Plan of Treatment Not on file Care Teams Hair Weaver Relationship Specialty Start Date End Date Mariluz Watts MD [address] [place] [address] [address] [place] [id number] PCP - General Family Medicine - Primary Care 12/26/22
--- OUTSIDE RECORDS SUMMARY | 2024-05-18 20:02 | XMS_ITS | Encounter Summary ---
Author Organization [facility] Address [address] [place] [address] Care Team Providers Care President Sales And Marketing Name Role Phone Mariluz Watts MD Primary Care Provider [phone] Encounter Details Date Type Department Care Team (Late st Contact Info) Description 12/14/2022 Lab Requisition [facility]ology [facility] Laboratory Medicine - [facility] [address] [place] [address] Mariluz Watts MD [address] [place] [address] [address] [place] [phone] Encounter for other general examination Social History Tobacco Use Types Packs/Day Years Used Date Smoking Tobacco: Never Assessed Sex and Gender Information Value Date Recorded Sex Assigned at Not on file Gender Identity Not on file Sexual Orientation Not on file documented as of this encounter Plan of Treatment Not on file documented as of this encounter Procedures Procedure Name Priority Date/Time Associated Diagnosis Comments PAP TEST Today 12/10/2022 11:30 EDT Encounter for other general examination HPV DNA DETECTION WITH GENOTYPING, PCR Today 12/10/2022 11:30 EDT Encounter for other general examination documented in this encounter Results * HUMAN PAPILLOMAVIRUS (HPV) DETECTION-HIGH RISK TYPES (12/10/2022 11:30 EDT) HPV other High Risk types, PCR Negative Negative 12/25/2022 15:51 EDT [facility] Comment:No E6 or E7 mRNA is detected from HPV types 16,18,31,33,35,39,45,51,52,56,58,59,66, and 68 by jailer/training officer mediated amplification. Papanicolaou smear specimen (specimen) CERVIX UTERI STRUCTURE / Unknown 12/10/2022 11:30 EDT 12/23/2022 10:39 EDT Mariluz Watts MD MICROBIOLOGY - [facility] ORDERABLES [facility] [address] [place] [address] * PAP TEST (12/10/2022 11:30 EDT) Specimens A. Cervix and/or Endocervix , ThinPrep Imaging System with Manual Evaluation 12/25/2022 15:51 T [facility] Specimen Adequacy Satisfactory for Evaluation - assessment of transformation zone component not applicable ( e.g. atrophy, vaginal sample, hysterectomy) 12/25/2022 15:51 [facility] General Categorization Negative for intraepithelial lesion or malignancy 12/25/2022 15:51 [facility] Attestation . 12/25/2022 15:51 [facility] at 1551 Clinical History See below 12/26/19 23 15:51 [facility] HPV The result for the Human Papillomavirus (HPV) Detection-High Risk Types is Negative. No E6 or E7 mRNA is detected from HPV types 16,18,31,33,35,39 ,45,51,52,56,58,5 9,66, and 68 by jailer/training officer mediated amplification.Ange ting was performed on specimen [id number] and was resulted on 12/25/2022 1551 EDT by GINETTE, LAB INSTRUMENT RESULTS IN 12/25/2022 15:51 T [facility] Performing Lab [facility] 12/25/2022 15:51 [facility] Scanned Images 12/25/2022 15:51 [facility] Papanicolaou smear specimen (specimen) CERVIX UTERI STRUCTURE / Unknown 12/10/2022 11:30 EDT 12/14/2022 9:18 EDT Mariluz Watts MD PATHOLOGY ORDERABLE S [facility] [address] [place] [address] documented in this encounter Visit Diagnoses Diagnosis Encounter for other general examination documented in this encounter Care Teams President Sales And Marketing Relationship Specialty Start Date End Date Mariluz Watts MD [address] [place] [phone] PCP - General Family Medicine - Primary Care 12/26/22 documented as of this encounter
--- OUTSIDE RECORDS SUMMARY | 2024-05-18 20:02 | XMS_ITS | Encounter Summary ---
[place] [address] Care Team Providers Care Deputy United States Marshal Name Role Phone Mariluz Watts MD Primary Care Provider [phone] Encounter Details Date Type Department Care Team (Latest Contact Info) Description 04/06/2011 1:36 PM EDT - 04/06/2011 11:59 PM EDT Hospital [place] [address] CLINIC, DR KATARINA Merlos, Abrahan Chavarria MD [facility] HEMATOLOGY/[place] [address] Discharge Disposition: Home Social History Tobacco Use [...] Date End Date anastrozole (ARIMIDEX) 1 mg tabletIndications:[place] st cancer, stage 2 Take 1 tablet by mouth daily. 90 tablet 3 04/06/2011 08/14/2011 Triamcinolone Acetonide-L.S.B. 0.1 % CreaIndications:Dermat itis Apply 1 applicator topically 2 times daily for 7 days. 1 Tube 0 04/03/2011 04/10/2011 ascorbic acid (VITAMIN C) 500 mg tablet Take 500 mg by mouth daily. 09/04/2011 Phokipj-Omgudsmou-Xhgy 333-133-5 mg Tab Take 3 tablets by [...] EST Office Visit [place] [phone] Paula Harris PA [facility] [place] [address] 01/26/2025 9:50 AM EDT Appointment Mammography/[place] [phone] Joan Deutsch APRN [facility] [place] [address] 01/26/2025 10:50 AM EDT Office Visit [place] [phone] Joan Deutsch APRN [facility] [place] [address] documented as of this encounter Procedures Procedure Name Priority Date/Time Associated Diagnosis Comments VITAMIN D, 25-HYDROXY Routine 04/06/2011 1:44 PM EDT HEPATIC FUNCTION PANEL STAT 04/06/2011 1:44 PM EDT documented in this encounter Results * HEPATIC FUNCTION PANEL (04/06/2011 1:44 PM EDT) Pathologist [facility] Protein, Total 6.8 6.4 - 8.3 gm/dL CERNER MILLENNIUM Albumin 4.4 3.2 - 5.2 gm/dL CERNER MILLENNIUM Aspartate Aminotransferase 13 0 - 30 unit/L CERNER MILLENNIUM Alanine Aminotransferase 14 0 - 30 unit/L CERNER MILLENNIUM Alkaline Phosphatase 94 40 - 104 unit/L CERNER MILLENNIUM Bilirubin, Total 0.2 0.2 - 1.3 mg/dL CERNER MILLENNIUM Bilirubin, Direct <0.1 0.0 - 0.3 mg/dL CERNER MILLENNIUM Blood specimen (specimen) 04/06/2011 1:44 PM EDT 04/06/2011 2:31 PM EDT Abrahan Merlos MD CHEMISTRY ORDERABLES [facility] * VITAMIN D2 AND D3 25 HYDROXY (04/06/2011 1:44 PM EDT) Pathologist [facility] 25-Hydroxy D2 <4.0 ng/mL CERNER MILLENNIUM Comment: Test Performed by: [place] [address] Head Of Marketing Analytics: Adela Gavin, Ph.D. 25-Hydroxy D3 41 ng/mL [facility] Comment: Test Performed by: [place] [address] Head Of Marketing Analytics: Adela Gavin, Ph.D. Vitamin D Total 25 OH 41 ng/mL [facility] Comment: -- REFERENCE VALUE -- 25-HYDROXY D TOTAL (D2+D3) Optimum levels in the normal population are 25-80 Test Performed by: [place] [address] Head Of Marketing Analytics: Adela Gavin, Ph.D. Blood specimen (specimen) 04/06/2011 1:44 PM EDT 04/06/2011 3:52 PM EDT Abrahan Merlos MD CHEMISTRY ORDERABLES Performing Organization Address City/State/[facility] Co pa Phone Number [facility] documented in this encounter Visit Diagnoses Not on filedocumented in this encounter Care Teams Deputy United [place] Marshal Relationship Specialty Start Date End Date Mariluz Watts MD [address] [place] [address] PCP - General 08/22/10 documented as of this encounter
--- OUTSIDE RECORDS SUMMARY | 2024-05-18 20:02 | XMS_ITS | Encounter Summary ---
[place] [address] Care Team Providers Care Otr Hazmat Company Driver Name Role Phone Mariluz Watts MD Primary Care Provider [phone] Encounter Details Date Type Department Care Team (Late st Contact Info) Description 02/09/2010 [place] [address] Bella Dowling MD [facility] DIAGNOSTIC [place] [address] Social History Tobacco Use Types Packs/Day Years [...] PM EST Office Visit General Surgery at [place] [phone] Paula Harris PA [facility] [place] [address] 01/26/2025 9:50 AM EDT Appointment Mammography/DXA at [place] [phone] Joan Deutsch, CLAIMS CORRESPONDENCE CLERK [facility] [place] [address] 01/26/2025 10:50 AM EDT Office Visit General Surgery at [place] [phone] Joan Deutsch, GE [facility] [place] [address] documented as of this encounter Procedures Procedure Name Priority Date/Time Associated Diagnosis Comments SURGICAL PATHOLOGY REPORT Routine 02/09/2010 11:33 AM EDT documented in this encounter Results * Surgical Pathology Report (02/09/2010 11:33 AM EDT) Surgical Pathology Report [id number] ? Location: 3K The signing pathologist has (i) examined the relevant preparation(s) for the specimen(s) and (ii) rendered or confirmed the diagnosis(es). . ?Pathology Surgical Pathology Final Report Clinical Information Specimen Submitted: A - Right breast, lesion 3 B - Left breast, lesion 1 + 2: one jar Clinical History: A - Enhancing mass on staging MRI hypoechoic mass on U/S (ipsilateral breast cancer) B - Enhancing, adjacent masses hypoechoic on U/S H/O of contralateral br cancer Clinical Diagnosis: A - FA, focal FCC, papilloma, less likely IDC B - Focal FCC, DCIS, papillary lesion Gross Description A - Labeled/Fixative: Right breast lesion 3, formalin. Qty/Size/Weight: ?Fragments, aggregating 2.4 x 1.4 x 0.3 cm. Tissue Description: ?? Castillo-yellow, fibroadipose tissue. Sections/Processi ng: ??(T2) B - Labeled/Fixative: Left breast lesions 1 and 2, formalin. Qty/Size/Weight: ?Fragments, aggregating 1.3 x 1.0 x 0.3 cm. Tissue Description: ?? Fragmented portions of castillo-yellow soft tissue ?and castillo-pink core biopsy. Sections/Processi ng: ??(T1) vms/PPS Microscopic Description Slides reviewed, microscopic description not recorded. Diagnosis Needle biopsies: ?A - Right breast, lesion 3. Diagnosis: ?Fibrocystic change with cysts, apocrine metaplasia and usual ductal hyperplasia. Microcalcificatio ns: ??N/A CR-0 Needle biopsies: ?B - Left breast, lesion 1 + 2 (one jar). Diagnosis: ?Sclerosing papilloma with atypia. Microcalcificatio ns: ??N/A. CR-0 02/10/10 XL 02/10/10 Verified by: ? Deangelo STEINER, Sweetie ?Pathologist ?(Electronic Signature) The attending pathologist whose signature appears on this report has reviewed all diagnostic slides and has edited the gross and/or microscopic portion of the report in rendering the final pathologic diagnosis. Comment Deeper levels on A2 examined. [facility] 02/09/2010 11:3 3 AM EDT Bella Dowling MD PATHOLOGY/CYTOLOGY O RDERABLES [facility] documented in this encounter Visit Diagnoses Not on filedocumented in this encounter Care Teams Otr [employer]mat [employer] Driver Relationship Specialty Start Date End Date Mariluz Watts MD [address] [place] [address] PCP - General 08/22/10 documented as of this encounter
--- OUTSIDE RECORDS SUMMARY | 2024-05-18 20:02 | XMS_ITS | Encounter Summary ---
[facility] Organization [facility] [place] [address] Care Team Providers Care Artist'S Representative Name Role Phone Mariluz Watts MD Primary Care Provider Encounter Details Date Type Department Care Team (Late st Contact Info) Description 03/06/2005 Orders Only Orthopaedics at [facility] [address] [place] [address] Kian Ervin MD [address] [place] [address] Social History Tobacco Use Types Packs/Day Years [...] PM EST Office [place] [phone] Paula Harris PA [facility] [place] [address] 01/26/2025 9:50 AM EDT Appointment Mammography/[place] [phone] Joan Deutsch, GE [facility] [place] [address] 01/26/2025 10:50 AM EDT Office [place] [phone] Joan Deutsch, GE [facility] [place] [address] documented as of this encounter Procedures Procedure Name Priority Date/Time Associated Diagnosis Comments SURGICAL PATHOLOGY REPORT Routine 03/06/2005 1:39 PM EDT documented in this encounter Results * Surgical Pathology Report (03/06/2005 1:39 PM EDT) Surgical Pathology Report [id number] ? Location: [facility]; 0304; B The signing pathologist has (i) examined the relevant preparation(s) for the specimen(s) and (ii) rendered or confirmed the diagnosis(es). . ?Pathology Surgical Pathology Final Report Clinical Information Specimen Submitted: A - Femoral head, rt. hip. Clinical History: Rt hip OA. Gross Description Labeled/Fixativ e: ? Femoral head, RT hip; fresh. Quantity/Size: ?One femoral head, 4.8 x 4.5 x 4.2 cm. Tissue Description: ?? One femoral head with up to 1.9 cm of attached neck. ?? Margin: ?The neck resection margin is smooth, red trabecular ?bone. ?? Articular surface: Forte-pink, finely granular, and pitted. ? Eburnation: ?Present. ? Osteophytes: ? Present. ?? Cut surface: ? Forte-yellow, trabecular bone. ? Subchondral Sclerosis: ??Present. ? Subchondral Cysts: ?Present. Sections/Proces sing: ??No sections are submitted. ??aje/SNS Diagnosis Articular bone and soft tissue consistent with osteoarthritis, right femoral head. ?? Gross surgical pathology examination. CR-0 03/07/05 AJE 03/07/05 Verified by: ? Devendra Trevino MD ?Pathologist ?(Electronic Signature) The attending pathologist whose signature appears on this report has reviewed all diagnostic slides and has edited the gross and/or microscopic portion of the report in rendering the final pathologic diagnosis. VALERIE TOPETE 03/06/2005 1:39 PM EDT Kian Ervin MD PATHOLOGY/CYTOLOGY O RDERABLES VALERIE TOPETE documented in this encounter Visit Diagnoses Not on filedocumented in this encounter Care Teams Artist'S Representative Relationship Specialty Start Date End Date Mariluz Watts MD [address] [place] [address] PCP - General 08/22/10 documented as of this encounter
--- OUTSIDE RECORDS SUMMARY | 2024-05-18 20:02 | XMS_ITS | Encounter Summary ---
Author Organization [facility] [place] [address] Care Team Providers Care Casino Floorperson Name Role Phone Mariluz Watts MD Primary Care Provider [phone] Reason for Referral * Physical Therapy (Routine) - Complete - Patient Will Schedule External Appt Specialty Diagnoses / Procedures Referred By John lyons Referred To Contact Physical Therapy Diagnoses DJD (degenerative joint disease) of hip Ralph Ambrocio PA [facility] [place] [address] Referral ID Status Reason Start Date Expiration Date Visits Requested Visits Authorized [id number] Complete - Patient Will Schedule External Appt Evaluate and Treat 02/01/2012 07/30/2012 12 12 Encounter Details Date Type Department Care Team (Late st Contact Info) Description 02/01/2012 Orders [place] [address] Ralph Ambrocio PA [facility] [place] [address] DJD (degenerative joint disease) of hip (Primary [...] PM EST Office [place] [phone] Paula Harris PA [facility] [place] [address] 01/26/2025 9:50 AM EDT Appointment Mammography/DXA at [place] [phone] Joan Deutsch APRN [facility] [place] [address] 01/26/2025 10:50 AM EDT Office Visit General Surgery at [place] [phone] Joan Deutsch APRN [facility] [place] [address] Scheduled Referrals Name Type Priority Associated Diagnoses Orde r Schedule REFERRAL TO PHYSICAL THERAPY Outpatient Referral Routine DJD (degenerative joint disease) of hip Ordered: 02/01/2012 documented as of this encounter Visit Diagnoses Diagnosis DJD (degenerative joint disease) of hip- Primary Osteoarthrosis, unspecified whether generalized or localized, pelvic region and thigh documented in this encounter Care Teams Casino Floorperson Relationship Specialty Start Date End Date Mariluz Watts MD [address] [place] [address] [address] [place] [address] PCP - General 08/22/10 documented as of this encounter
--- OUTSIDE RECORDS SUMMARY | 2024-05-18 20:02 | XMS_ITS | Encounter Summary ---
[place] [address] Care Team Providers Care Medical Auditor Name Role Phone Mariluz Watts MD Primary Care Provider [phone] Reason for Visit * Reason Comments Left Hip Pain Aftercare Of Tjr SP R ARSLAN DOS 02/2005 Left Knee Pain Encounter Details Date Type Department Care Team (Late st Contact Info) Description 01/25/2012 2:35 PM EDT Office Visit [place] [address] Nick Ruiz MD [address] [place] [address] Hip pain (Primary Dx); S/P hip replacement Discharge Disposition: Home Social History [...] Sign Reading Time Taken Comments Blood Pressure 122/80 01/25/2012 3:42 PM EDT Pulse 88 01/25/2012 3:42 PM EDT Temperature - - Respiratory Rate - - Oxygen Saturation - - Inhaled Oxygen Concentration - - Weight 95.9 kg (211 lb 6.4 oz) 01/25/2012 3:42 P M EDT Height 168.9 cm (5' 6.5) 01/25/2012 3:42 PM EDT Body Mass Index 33.61 01/25/2012 3:42 PM EDT documented in this encounter Progress Notes * Ralph Ambrocio PA - 01/28/2012 1:43 PM EDT SURGERY DATE: 03/06/2005 NICK RUIZ MD Surgical Procedure Performed: Right total hip arthroplasty, cementless, urevtip-kg-[id number] Components Used: Nicole Trident 52 shell outer diameter Femoral head 32-4 mm Nicole Accolade Femoral stem size 4, 127 deg HPI: Ms Gaming returns 7 years from her hip replacement. The right hip continues to do very well. She has having more pain to her left leg at this point. Pain is to the anterior-lateral aspect of the left hip and down to her left knee. She denies any injuries. Pain is with weight bearing only. The pain is different than the pain was prior to her right hip replacement. There is mild knee swelling. No instability. Aside from the joints her health has been stable. No fevers or chills. No SOB or chest pain. Physical Exam: 66 yo female ambulatory without assist or antalgia. When supine her leg lengths are equal. Calves soft and nontender without edema. SHe is omayra to straight leg raise on both sides withmild anterior hip discomfort on the left side. Hip ROM is well tolerated on the right. The left side shows discomfort with flexion and IR. The left knee shows no effusion. ROM from 0-120 with anterior medial pain at full motion. No ligamentous laxity. X-rays: There is mild bilteral medial compartmental narrowing, flattening, and some irregularity ofthe left medial compartment. Small left knee effusion. 9 mm calcification probable in the quadriceps tendon or in the joint bursa. Portal view shows moderate lateral facet narrowing, right greater than left. Schuss views demonstrate oagzasks-ej-sumpyf left medial compartmental narrowing and mild osteophytosis. Patient is status post right noncemented hip arthroplasty. No heterotopic bone formation. No obvious signs of loosening or infection. Mild left hip osteoarthritis. The sacroiliac joints are within normal limits. No labral-type calcifications detected Assessment: S/P Right ARSLAN with left hip and knee pain Plan: My sense is that the left hip has mild OA; she feels quite limited by the hip. The knee is more arthritic but less limiting. She would like to try a diagnostic/therapeutic injection to the hip which is reasonable. We'll proceed with an injection and f/u with her as needed for the left sided symptoms. documented in this encounter Plan of Treatment Upcoming Encounters Date Type Department Care Team (Late st Contact Info) Description 11/16/2024 1:00 PM EST Office Visit [place] [phone] Paula Harris PA [facility] [place] [address] 01/26/2025 9:50 AM EDT Appointment Mammography/[place] [phone] Joan Deutsch APRN [facility] [place] [address] 01/26/2025 10:50 AM EDT Office Visit [place] [phone] Joan Deutsch APRN [facility] [place] [address] documented as of this encounter Results * XR Fluoro injection FL drain large JT (01/31/2012 2:13 PM EDT) Anatomical Region Laterality Modality N/A Radiographic Crystal ging 01/31/2012 2:13 PM EDT Narrative 02/04/2012 2:11 PM EDT ?VIR ?? PROCEDURE NOTE ?Name: ?? Diamond Gaming ? Date ?? of : 1945 ?Procedure: ?? LEFT HIP INJECTION UNDER FLUOROSCOPY ? ACC#: ?? [id number] ?Indication ?? for Procedure: Left hip pain, degenerative ?? disease ?TECHNIQUE: ?? After an extensive conversation with the patient regarding risks and ?? benefits, oral and written consent were obtained. The patient was placed ?? supine on the fluoroscopic table. The left hip was prepped and draped in the ?? usual aseptic manner. 1% Lidocaine was used to achieve local anesthesia. ?? Under fluoroscopic guidance, 22 gauge spinal needle was advanced into the ?? joint space. Small amount of air was injected to the document needle ?? placement. A mixture of Ropivacaine, and triamcinolone acetonide was injected. ?? All needles removed at end of procedure. ?FINDINGS: ? 1. ?? Small amount of injected air in the left hip joint space. ?2. ?? PAIN SCORE: ?Before: ?? /10 ?After: ?3. ?? Medications: ?Lidocaine ?? 1% - 2 cc, for subcutaneous anesthesia ?Ropivacaine ?? HCL 0.5% - 4 cc vial size 30 cc, discarded 26 cc ?Triamciolone ?? Acetonide - 40 mg, vial size 50 mg, discarded 10 mg ?Fluoroscopy ?? time: 9 sec ?COMPLICATIONS: ?? None immediate. ?POST-PROCEDURE ?? CARE: Information regarding monitor of infection, post- ?? procedural pain and management of steroid flare were reviewed with patient. ?IMPRESSION: ?? Uneventful left hip joint injection under fluoroscopy. ?Resident/Fellow: ?? Dr. Devaughn Mcdonough (Pager #[phone]) ? Attending: ?? Dr. Marly Torres ?ATTENDING ?? ATTESTATION ?I, ?? Marly Torres MD MS, supervised the resident/fellow during the hanna and ?? critical portions of the procedure and was immediately available throughout. ? ; ?? {CR} ? ; ?? {CR} ? ; ?? {CR} ? ; ?? {CR} ? ; ?? {CR} ? Film and interpretation reviewed by the attending Procedure Note Marly Torres MD - 02/04/2012 VIR PROCEDURE NOTE Name: Diamond aGming Date of : 1945 Procedure: LEFT HIP INJECTION UNDERFLUOROSCOPY ACC#: [id number] Indication for Procedure: Left hip pain, degenerative disease TECHNIQUE: After an extensive conversation with the patient regarding risks and benefits, oral and written consent were obtained.The patient was placed supine on the fluoroscopic table. The left hip wasprepped and draped in the usual aseptic manner. 1% Lidocaine was used to achieve local anesthesia. Under fluoroscopic guidance, 22 gauge spinal needlewas advanced into the joint space. Small amount of air was injected to the document needle placement. A mixture of Ropivacaine, and triamcinolone acetonide was injected. All needles removed at end of procedure.FINDINGS: 1. Small amount of injected air in the left hip joint space. 2.PAIN SCORE: Before: 7 /10 After: 3. Medications:Lidocaine 1% - 2 cc, for subcutaneous anesthesia Ropivacaine HCL 0.5% - 4 ccvial size 30 cc, discarded 26 cc Triamciolone Acetonide - 40 mg, vial size50 mg, discarded 10 mg Fluoroscopy time: 9 sec COMPLICATIONS: None immediate. POST-PROCEDURE CARE: Information regarding monitor of infection, post- procedural pain and management of steroid flare were reviewed with patient. IMPRESSION: Uneventful left hip jointinjection under fluoroscopy. Resident/Fellow: Dr. Devaughn Mcdonough (Pager#[phone]) Attending: Dr. Marly Torres ATTENDING ATTESTATION I, Marly Torres MD MS, supervised the resident/fellowduring the hanna and critical portions of the procedure and was immediatelyavailable throughout. ; {CR} ; {CR} ; {CR} ; {CR} ; {CR} Film and interpretation reviewed by the attending Nick Ruiz MD IMG FLUORO ORDERABLE S documented in this encounter Visit Diagnoses Diagnosis Hip pain- Primary Pain in joint, pelvic region and thigh S/P hip replacement Hip joint replacement by other means Hip pain Pain in joint, pelvic region and thigh documented in this encounter Care Teams Medical Auditor Relationship Specialty Start Date End Date Mariluz Watts MD [address] [place] [address] PCP - General 08/22/10 documented as of this encounter
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
--- OUTSIDE RECORDS SUMMARY | 2024-05-18 20:02 | XMS_ITS | Encounter Summary ---
[place] [address] Care Team Providers Care River Expedition Guide Name Role Phone Mariluz Watts MD Primary Care Provider [phone] Encounter Details Date Type Department Care Team (Late st Contact Info) Description 03/27/2011 10:49 AM EDT Anesthesia Event [place] [address] Chente Beck MD [facility] DR [place] [address] Anesthesia Record Procedure Summary Procedure Name Responsible Anesthesiologist Anesthesia Start Time Anesthesia Stop Time EXC BENIGN LESION; INDRA >4.0CM, TRUNK (WRVU 3.52) (Trunk) Chente Beck MD 03/27/11 1049 03/27/11 1209 Events Date Time Event Comment 03/27/2011 1033 1049 Start 1209 Stop Meds * Agents No agents on file. * Blood No blood administrations on file. Lines, Drains, and Airways Type Details Placement Removal (RETIRED) Peripheral IV Line - Single Lumen 03/27/11; 0844; 03/27/11; 1507 03/27/11 0844 by Mekhi Mcneal RN 03/27/11 1507 by Scar Fraire RN Incision breast; 05/28/22 (LDA cleanup utility RA#[id number]); 1715 (LDA cleanup utility RA#[id number]) 03/27/11 1105 by 05/28/22 1715 by Kalee Reeves Incision breast; 05/28/22 (LDA cleanup utility RA#[id number]); 1715 (LDA cleanup utility RA#[id number]) 03/27/11 1106 by 05/28/22 1715 by Kalee Reeves documented in [...] OR Notes * Anesthesia Postprocedure Evaluation - Chente Beck MD - 03/27/2011 12:14 PM EDT Patient: Diamond Gaming Procedure(s) Performed: EXC BENIGN LESION; INDRA >4.0CM, TRUNK - 7-10 follow-up Patient location: PACU Post-op pain: Adequate analgesia Post-op nausea: no nausea or vomiting Last Vitals: Filed Vitals: 03/27/11 1209 BP: 155/94 Pulse: 90 Temp: 36.8 ??C (98.2 ??F) Resp: 18 Post-op cardiovascular and respiratory status: is stable Level of consciousness: awake, alert and oriented Complications: no apparent complications, tolerated the procedure well and no evidence of recall Fluid Status: normal * Anesthesia Preprocedure Evaluation - Chhaya Brantley MD - 03/27/2011 8:48 AM EDT Anesthesia Evaluation Patient summary reviewed Hx of anesthetic complications (PONV) Airway Mallampati: I TM distance: >3 FB Neck ROM: full Dental Comment: [place] dentition Pulmonary - negative ROS breath sounds clear to auscultation (-) asthma Cardiovascular - negative ROS (-) hypertension, past NM and murmur Rhythm: regular Rate: normal Neuro/Psych - negative ROS GI/Hepatic/Renal (-) GERD, liver disease and renal disease Endo/Other (+) arthritis, (-) Type I DM and Type II DM Clotting problem: h/o GI bleed (2006) and post- and post-op bleeding Abdominal Other findings: Allergies: Tetracycline - anaphylaxis Bees Anesthesia Plan ASA 1 General with intravenous induction 65 yo F with h/o postop bleeding and obesity who presents for breast scar revision. Plan general anesthesia with ETT and regular ASA monitors. Anesthetic plan and risks discussed with patient. Plan discussed with attending. documented in this encounter Plan of Treatment Upcoming Encounters Date Type Department Care Team (Late st Contact Info) Description 11/16/2024 1:00 PM EST Office [place] [phone] Paula Harris PA [facility] [place] [address] 01/26/2025 9:50 AM EDT Appointment Mammography/[place] [phone] Joan Deutsch APRN [facility] [place] [address] 01/26/2025 10:50 AM EDT Office [place] [phone] Joan Deutsch APRN [facility] [place] [address] documented as of this encounter Visit Diagnoses Not on filedocumented in this encounter Care Teams River Expedition Guide Relationship Specialty Start Date End Date Mariluz Watts MD [address] [place] [address] 1 [place] [address] PCP - General 08/22/10 documented as of this encounter
--- OUTSIDE RECORDS SUMMARY | 2024-05-18 20:02 | XMS_ITS | Encounter Summary ---
Author Organization [facility] [place] [address] Care Team Providers Care Coin Machine Collector Name Role Phone Mariluz Watts MD Primary Care Provider [phone] Encounter Details Date Type Department Care Team (Latest Contact Info) Description 01/31/2012 1:06 PM EDT - 01/31/2012 11:59 PM EDT Hospital Encounter XRay at [address] [place] [address] CLINIC, Kian Stone MD [address] [facility] [place] [address] Hip pain Discharge Disposition: Home Social History [...] 10/26/2010 2 documented as of this encounter Procedure Notes * Marly Torres MD - 01/31/2012 2:15 PM EDTProcedure(s): XR FLUORO INJECTION FL DRAIN LARGE JT VIR PROCEDURE NOTE Name: Diamond Gaming Date of : 1945 Procedure: LEFT HIP INJECTION UNDER FLUOROSCOPY ACC#: [id number] Indication for Procedure: Left hip pain, degenerative disease TECHNIQUE: After an extensive conversation with the patient regarding risks and benefits, oral and written consent were obtained. The patient was placed supine on the fluoroscopic table. The left hipwas prepped and draped in the usual aseptic manner. 1% Lidocaine was used to achieve local anesthesia. Under fluoroscopic guidance, 22 gauge spinal needle was advanced into the joint space. Small amount of air was injected to the document needle placement. A mixture of Ropivacaine, and triamcinolone acetonide was injected. All needles removed at end of procedure. FINDINGS: 1. Small amount of injected air in the left hip joint space. 2. PAIN SCORE: Before: 7 /10 After: 3. Medications: Lidocaine 1% - 2 cc, for subcutaneous anesthesia Ropivacaine HCL 0.5% - 4 cc vial size 30 cc, discarded 26 cc Triamciolone Acetonide - 40 mg, vial size 50 mg, discarded 10 mg Fluoroscopy time: 9 sec COMPLICATIONS: None immediate. POST-PROCEDURE CARE: Information regarding monitor of infection, post- procedural pain and management of steroid flare were reviewed with patient. IMPRESSION: Uneventful left hip joint injection under fluoroscopy. Resident/Fellow: Dr. Devaughn Mcdonough (Pager #[phone]) Attending: Dr. Marly Torres ATTENDING ATTESTATION IMarly MD MS, supervised the resident/fellow during the hanna and critical portions of theprocedure and was immediately available throughout. documented in this encounter Plan of Treatment Upcoming Encounters Date Type Department Care Team (Late st Contact Info) Description 11/16/2024 1:00 PM EST Office [place] [phone] Paula Harris PA [facility] [place] [address] 01/26/2025 9:50 AM EDT Appointment Mammography/[place] [phone] Joan Deutsch APRN [facility] [place] [address] 01/26/2025 10:50 AM EDT Office [place] [phone] Joan Deutsch APRN [facility] [place] [address] documented as of this encounter Procedures Procedure Name Priority Date/Time Associated Diagnosis Comments XR FLUORO INJECTION FL DRAIN LARGE JT Routine 01/31/2012 2:13 PM EDT Hip pain documented in this encounter Results * XR Fluoro injection FL drain large JT (01/31/2012 2:13 PM EDT) Anatomical Region Laterality Modality N/A Radiographic Crystal ging 01/31/2012 2:13 PM EDT Narrative 02/04/2012 2:11 PM EDT ?VIR ?? PROCEDURE NOTE ?Name: ?? Diamond Gaming ? Date ?? of : 1945 ?Procedure: ?? LEFT HIP INJECTION UNDER FLUOROSCOPY ? ACC#: ?? [id number] ?Indication ?? for Procedure: Left hip pain, [...] space. ?2. ?? PAIN SCORE: ?Before: ?? 10 ?After: ?3. ?? Medications: ?Lidocaine ?? 1% [...] fluoroscopy. ?Resident/Fellow: ?? Dr. Devaughn Mcdonough (Pager #[phone]) ? Attending: ?? Dr. Marly Torres ?ATTENDING [...] - 02/04/2012 VIR PROCEDURE NOTE Name: Diamond Gaming Date of : 1945 Procedure: LEFT HIP INJECTION UNDERFLUOROSCOPY ACC#: [id number] Indication for Procedure: Left hip pain, degenerative [...] jointinjection under fluoroscopy. Resident/Fellow: Dr. Devaughn Mcdonough (Pager#[phone]) Attending: Dr. Marly Torres ATTENDING ATTESTATION I, Marly Torres MD MS, supervised the resident/fellowduring the hanna and critical portions of the procedure and was immediatelyavailable throughout. ; {CR} ; {CR} ; {CR} ; {CR} ; {CR} Film and interpretation reviewed by the attending Kian Ervin MD IMG FLUORO ORDERABLE S documented in this encounter Visit Diagnoses Diagnosis Hip pain Pain in joint, pelvic region and thigh documented in this encounter Administered Medications Inactive Administered Medications - up to 3 most recent administrations Medication Order MAR Action Action Date Dose Rate Site ROpivacaine 4 mL with triamcinolone acetonide 10 mg injection Intra-articular, ONCE, 1 dose, On Lizz 01/31/12 at 1430 Given 01/31/2012 2:00 PM EDT documented in this encounter Care Teams Coin Machine Collector Relationship Specialty Start Date End Date Mariluz Watts MD [address] [facility] [address] [place] [address] PCP - General 08/22/10 documented as of this encounter
--- OUTSIDE RECORDS SUMMARY | 2024-05-18 20:02 | XMS_ITS | Encounter Summary ---
[place] [address] Care Team Providers Care Agile Project Manager Name Role Phone Mariluz Watts MD Primary Care Provider [phone] Reason for Visit * Reason Onset Date Comments Medication Refill 08/14/2011 Encounter Details Date Type Department Care Team (Late st Contact Info) Description 08/14/2011 Refill Hematology [place] [address] Gemini Felton RN Breast cancer, stage 2 Social History Tobacco [...] Miscellaneous Notes * Telephone Encounter - Gemini Felton RN - 08/14/2011 2:01 PM EST Script generated for Anastrozole dispense#90 with 3 refills. Spoke with patient who would like the script mailed to her , [facility] are aware. Started May 28, 2010 Last seen 04/06/11 by , script generated. Patient changing pharmacy. Pended for approval and signature then e-scribed to [facility] outpatient pharmacy. * Telephone Encounter - Gemini Felton RN - 08/14/2011 12:28 PM EST Message copied by GEMINI FELTON on SatAug 14, 2011 12:28 PM ------ Message from: CASEY BAUER Created: SatAug 14, 2011 9:50 AM Gaurang Diamond is switching her pharmacy, she would like her Arimidex phoned in to the outpatient pharmacy. If you have any questions she works here @ [employer] [address]. documented in this encounter Plan of Treatment Upcoming Encounters Date Type Department Care Team (Late st Contact Info) Description 11/16/2024 1:00 PM EST Office Visit General Surgery at [place] [phone] Paula Harris PA [facility] [place] [address] 01/26/2025 9:50 AM EDT Appointment Mammography/[place] [phone] Joan Detusch PROGRAM DIR [facility] [place] [address] 01/26/2025 10:50 AM EDT Office [place] [phone] Joan Deutsch APRN [facility] [place] [address] documented as of this encounter Visit Diagnoses Diagnosis Breast cancer, stage 2 Malignant neoplasm of breast (female), unspecified site documented in this encounter Care Teams Agile Project Manager Relationship Specialty Start Date End Date Mariluz Watts MD [address] [place] [address] PCP - General 08/22/10 documented as of this encounter
--- OUTSIDE RECORDS SUMMARY | 2024-05-18 20:02 | XMS_ITS | Encounter Summary ---
Author Organization [facility] [place] [address] Care Team Providers Care Pulpwood Dealer Name Role Phone Mariluz Watts MD Primary Care Provider [phone] Encounter Details Date Type Department Care Team (Late st Contact Info) Description 04/03/2011 Abstract [place] [address] Lindy Mata RN Social History Tobacco Use Types Packs/Day [...] PM EST Office [place] [address] Paula Harris PA [facility] [place] [address] 01/26/2025 9:50 AM EDT Appointment Mammography[place] [address] Joan Deutsch, [facility] [place] [address] 01/26/2025 10:50 AM EDT Office [place] [address] Joan Deutsch, [facility] [place] [address] documented as of this encounter Visit Diagnoses Not on filedocumented in this encounter Care Teams Pulpwood Dealer Relationship Specialty Start Date End Date Mariluz Watts MD [address] [place] [address] PCP - General 08/22/10 documented as of this encounter
--- OUTSIDE RECORDS SUMMARY | 2024-05-18 20:02 | XMS_ITS | Encounter Summary ---
[place] [address] Care Team Providers Care Bladder Trimmer Name Role Phone Mariluz Watts MD Primary Care Provider [phone] Reason for Visit * Reason Onset Date Comments Results 04/09/2011 Encounter Details Date Type Department Care Team (Late st Contact Info) Description 04/09/2011 Telephone Hematology [place] [address] Abrahan Merlos MD [facility] DR HEMATOLOGY/[place] [address] Results Social History Tobacco Use Types Packs/Day Years [...] encounter Miscellaneous Notes * Telephone Encounter - Abrahan Merlos MD - 04/09/2011 4:20 PM EDT I emailed Diamond today to inform her that her LFT's were normal and her Vitamin D level was 41 (optimal 35-45 ng/mL) on April 06, on 1500 units of Vitamin D daily. I told her to continue taking the same dose of Vitamin D. documented in this encounter Plan of Treatment Upcoming Encounters Date Type Department Care Team (Late st Contact Info) Description 11/16/2024 1:00 PM EST Office [place] [address] Paula Harris PA [facility] [place] [address] 01/26/2025 9:50 AM EDT Appointment Mammography[place] [phone] Joan Deutsch [facility] [place] [address] 01/26/2025 10:50 AM EDT Office [place] [phone] Joan Deutsch [facility] [place] [address] documented as of this encounter Visit Diagnoses Not on filedocumented in this encounter Care Teams Bladder Trimmer Relationship Specialty Start Date End Date Mariluz Watts MD [address] [place] [address] PCP - General 08/22/10 documented as of this encounter
--- OUTSIDE RECORDS SUMMARY | 2024-05-18 20:02 | XMS_ITS | Encounter Summary ---
Author Organization [facility] Address [address] [place] [address] Care Team Providers Care Application Administrator Name Role Phone Mariluz Watts MD Primary Care Provider [phone] Encounter Details Date Type Department Care Team ([facility] st Contact Info) Description 12/31/2023 Lab Requisition [facility] Pathology & Laboratory Medicine - [address] [address] Outr Resulting Lab, Provider Social History Tobacco [...] Procedure Name Priority Date/Time Associated Diagnosis Comments FECAL BACTERIAL PATHOGENS BY PCR Routine 12/31/2023 11:30 EDT GIARDIA AND CRYPTOSPORIDIUM ANTIGENS Routine 12/31/2023 11:30 EDT documented in this encounter Results * GIARDIA AND CRYPTOSPORIDIUM ANTIGENS (12/31/2023 11:30 EDT) Giardia and Cryptosporidium Cryptosporidium Antigen Neg and Giardia Antigen Neg Cryptosporidium Antigen Neg and Giardia Antigen Neg 11:14 EDT [facility] Feces SPECIMEN FROM RECTUM / Unknown 12/31/2023 11:30 EDT 12/31/2023 21:53 EDT Provider Outr Resulting Lab MICROBIOLOGY - GENERAL ORDERABLES Performing Organization Address City/[facility] Co de Phone Number [facility] [address] [place] [address] * FECAL BACTERIAL PATHOGENS BY PCR (12/31/2023 11:30 EDT) Salmonella PCR Negative Negative 01/01/2024 15:04 EDT [facility] Shigella/Enteroin vasive E. coli Negative Negative 01/01/2024 15:04 EDT [facility] HN LAB CAMPYLOBACTER PCR Negative Negative 01/01/2024 15:04 EDT [facility] Shiga Toxin PCR Negative Negative 15:04 EDT [facility] Feces SPECIMEN FROM RECTUM / Unknown 12/31/2023 11:30 EDT 12/31/2023 21:53 EDT Provider Outr Resulting Lab MICROBIOLOGY - GENERAL ORDERABLES Performing Organization Address City/[facility] Co de Phone Number [facility] [address] [place] [address] documented in this encounter Visit Diagnoses Not on filedocumented in this encounter Care Teams Application Administrator Relationship Specialty Start Date End Date Mariluz Watts MD [address] [place] [address] PCP - General Family Medicine - Primary Care 12/26/22 documented as of this encounter
--- OUTSIDE RECORDS SUMMARY | 2024-05-18 20:02 | XMS_ITS | Encounter Summary ---
[place] [address] Care Team Providers Care Seo Analyst Name Role Phone Mariluz Watts MD Primary Care Provider [phone] Encounter Details Date Type Department Care Team (Late st Contact Info) Description 08/16/2011 Telephone Hematology [place] [phone] Gemini Lawrence RN Social History Tobacco Use [...] Miscellaneous Notes * Telephone Encounter - Gemini Lawrence, RN - 08/16/2011 12:57 PM EST Diamond is changing pharmacy to [facility] and wishes medication to be mailed to her. [facility] aware of this. Script generated and pended for approval and signature on 08/14/2011. documented in this encounter Plan of Treatment Upcoming Encounters Date Type Department Care Team (Late st Contact Info) Description 11/16/2024 1:00 PM EST Office Visit General Surgery at [place] [phone] Paula Harris PA [facility] [place] [address] 01/26/2025 9:50 AM EDT Appointment Mammography/[place] [address] Joan Deutsch, [facility] [place] [address] 01/26/2025 10:50 AM EDT Office Visit General Surgery at [place] [phone] Joan Deutsch, [facility] [place] [address] documented as of this encounter Visit Diagnoses Not on filedocumented in this encounter Care Teams Seo Analyst Relationship Specialty Start Date End Date Mariluz Watts MD [address] [place] [address] PCP - General 08/22/10 documented as of this encounter
--- OUTSIDE RECORDS SUMMARY | 2024-05-18 20:02 | XMS_ITS | Encounter Summary ---
[place] [address] Care Team Providers Care Real Estate Inspector Name Role Phone Mariluz Watts MD Primary Care Provider [phone] Encounter Details Date Type Department Care Team (Late st Contact Info) Description 11/05/2011 Orders [place] [phone] Karine Vaca, RN Malignant neoplasm of breast (female), unspecified site (Primary Dx) Social History Tobacco Use Types [...] PM EST Office [place] [phone] Paula Harris, PA [facility] [place] [address] 01/26/2025 9:50 AM EDT Appointment Mammography/[place] [phone] Joan Deutsch APRN [facility] [place] [address] 01/26/2025 10:50 AM EDT Office [place] [phone] Joan Deutsch APRN [facility] [place] [address] documented as of this encounter Visit Diagnoses Diagnosis Malignant neoplasm of breast (female), unspecified site- Primary documented in this encounter Care Teams Real Estate Inspector Relationship Specialty Start Date End Date Mariluz Watts MD [address] [place] [address] PCP - General 08/22/10 documented as of this encounter
--- OUTSIDE RECORDS SUMMARY | 2024-05-18 20:02 | XMS_ITS | Encounter Summary ---
[place] [address] Care Team Providers Care Web Content Executive Name Role Phone Mariluz Watts MD Primary Care Provider [phone] Encounter Details Date Type Department Care Team (Late st Contact Info) Description 01/25/2010 Orders [place] [address] Cece Marrero MD [facility] [place] [address] Social History Tobacco Use Types Packs/Day Years [...] PM EST Office Visit [place] [address] Paula Harris PA [facility] [place] [address] 01/26/2025 9:50 AM EDT Appointment Mammography/[place] [phone] Joan Deutsch, [facility] [place] [address] 01/26/2025 10:50 AM EDT Office Visit [place] [address] Joan Deutsch, [facility] [place] [address] documented as of this encounter Procedures Procedure Name Priority Date/Time Associated Diagnosis Comments SURGICAL PATHOLOGY REPORT Routine 01/25/2010 11:49 AM EDT documented in this encounter Results * Surgical Pathology Report (01/25/2010 11:49 AM EDT) Surgical Pathology Report [id number] ? Location: [facility]W The signing pathologist has (i) examined the relevant preparation(s) for the specimen(s) and (ii) rendered or confirmed the diagnosis(es). . ?Pathology Surgical Pathology Final Report Clinical Information Specimen Submitted: Mauri - Hunter , right breast, us Clinical History: Spiculated mass Clinical Diagnosis: Invasive Ca Gross Description Labeled/Fixativ e: ? Right breast lesion , formalin. Qty/Size/Weight : ?Two needle core biopsies, 1.5 cm and 2.2 cm. ?Cylindrical cores of bonilla-white and yellow-white, ?fatty and fibrofatty tissue. Sections/Proces sing: ??(T1) ??aje/EJR Microscopic Description Slides reviewed, microscopic description not recorded. Diagnosis Needle biopsies: ?Right breast, lesion 1 of 1. 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 Microcalcificat ions: ??NA. CR-0 01/26/10 CCB 01/26/10 Verified by: ? Black DO, Marilu C. ?Pathologist ?(Electronic Signature) The attending pathologist whose signature appears on this report has reviewed all diagnostic slides and has edited the gross and/or microscopic portion of the report in rendering the final pathologic diagnosis. VALERIE TOPETE 01/25/2010 11:4 9 AM EDT Ccee Marrero MD PATHOLOGY/CYTOLOGY Susan HUGGINS Performing Organization Address City/State/[facility] Co de Phone Number VALERIE TOPETE documented in this encounter Visit Diagnoses Not on filedocumented in this encounter Care Teams Web Content Executive Relationship Specialty Start Date End Date Mariluz Watts MD [address] [place] [address] PCP - General 08/22/10 documented as of this encounter
--- OUTSIDE RECORDS SUMMARY | 2024-05-18 20:02 | XMS_ITS | Encounter Summary ---
[place] [address] Care Team Providers Care Admitting Manager Name Role Phone Mariluz Watts MD Primary Care Provider [phone] Encounter Details Date Type Department Care Team (Latest Contact Info) Description 03/27/2011 7:52 AM EDT - 03/27/2011 3:15 PM EDT Hospital Encounter [place] [address] Ruben Chaudhari MD [address] [place] [id number] Breast cancer, stage 2 Discharge Disposition: Home [...] Discharge Instructions * Discharge Instructions* Francisco Javier Fraire RN - 03/27/2011 1:08 PM EDT POST [...] Operative Note Patient Name: Diamond Gaming : [id number] MR#: [id number] Case Date: 03/27/2011 Surgeon: Surgeon(s) and Role: [...] Specimen details pertinent to this patient.) * Noemi - Provider, Scanning - 03/27/2011 8:09 AM [...] PM EST Office Visit General Surgery at [place] [phone] Paula Harris PA [facility] [place] [address] 01/26/2025 9:50 AM EDT Appointment Mammography/[place] [address] Joan Deutsch APRN [facility] [place] [address] 01/26/2025 10:50 AM EDT Office Visit General Surgery at [place] [phone] Joan Deutsch APRN [facility] [place] [address] documented as of this encounter Procedures Procedure Name Priority Date/Time Associated Diagnosis Comments EXC BENIGN LESION; INDRA >4.0CM, TRUNK (WRVU 3.52) 03/27/2011 10:46 AM EDT bilateral unsatisfactory scarring documented in this encounter Visit Diagnoses Diagnosis Breast cancer, stage 2 Malignant neoplasm of breast (female), unspecified site documented in this encounter Administered Medications Inactive Administered Medications - up to 3 most recent administrations Medication Order MAR Action Action Date Dose Rate Site fentaNYL (PF) 50 mcg/mL injection 1 dose, Starting on Sat03/27/11 at 1228, Until Sat03/27/11 at 1230, FRANCISCO JAVIER FRAIRE: Tobint Override fentaNYL 50mcg/mL injection 25-50 mcg, Intravenous, [...] Procedure), Routine 0845 (Given - Provid er: Mkehi Nieto RN)0915 (Due) Continuous Medication Order 03/25/2011 [...] 1230 (Given - Provid er: Francisco Javier Fraire RN)1250 (Given - Provider: Francisco Javier Fraire RN) [...] 30 MIN PRN, 2 doses, Starting on 03/27/11 at 1212, Until 03/27/11 at 1905, Nausea, May repeat 5 mg once in 30 minutes. Consider metoclopramide if ineffective., PACU Recovery, Routine 1341 (Given - Provid er: Mekhi Nieto RN) Linked Groups Order Group 1: ondansetron (ZOFRAN) injection 4 mg (CANCELED) 4 mg, Intravenous, EVERY 30 MIN PRN, 2 doses, Starting on 03/27/11 at 1212, Until 03/27/11 at 1905, Nausea, May repeat 4 mg once in 30 minutes. Consider prochlorperazine if ineffective., PACU Recovery, Routine Or prochlorperazine (COMPAZINE) injection 5 mg (CANCELED)Jump to med 5 mg, Intravenous, EVERY 30 MIN PRN, 2 doses, Starting on 03/27/11 at 1212, Until 03/27/11 at 1905, Nausea, May repeat 5 mg once in 30 minutes. Consider metoclopramide if ineffective., PACU Recovery, Routine Or metoclopramide (REGLAN) injection 10 mg (CANCELED) 10 mg, Intravenous, EVERY 30 MIN PRN, 2 doses, Starting on 03/27/11 at 1212, Until 03/27/11 at 1905, Nausea, Avoid in patients greater than 60 years old., PACU Recovery, Routine documented in this encounter Care Teams Admitting Manager Relationship Specialty Start Date End Date Mariluz Watts MD [address] [place] [address] PCP - General 08/22/10 documented as of this encounter
--- OUTSIDE RECORDS SUMMARY | 2024-05-18 20:03 | XMS_ITS | Encounter Summary ---
Author Organization [facility] Address [address] [place] [address] Care Team Providers Care Front Desk Team Member Name Role Phone Mariluz Watts MD Primary Care Provider [phone] Encounter Details Date Type Department Care Team ([facility] st Contact Info) Description 05/12/2021 Lab Requisition [facility] Pathology & Laboratory Medicine - [address] [address] Outr Resulting Lab, Provider Social History Tobacco [...] Diagnosis Comments GIARDIA AND CRYPTOSPORIDIUM ANTIGENS Routine 05/11/2021 19:50 EDT documented in this encounter Results * GIARDIA AND CRYPTOSPORIDIUM ANTIGENS (05/11/2021 19:50 EDT) Giardia and Cryptosporidium Cryptosporidium Antigen Neg and Giardia Antigen Neg Cryptosporidium Antigen Neg and Giardia Antigen Neg 11:50 EDT [facility] Feces SPECIMEN FROM RECTUM / Unknown 05/11/2021 19:50 EDT 05/12/2021 16:43 EDT Provider Outr Resulting Lab MICROBIOLOGY - GENERAL ORDERABLES [facility] [address] [place] [address] documented in this encounter Visit Diagnoses Not on filedocumented in this encounter Care Teams Front Desk Team Member Relationship Specialty Start Date End Date Mariluz Watts MD [address] [place] [address] PCP - General Family Medicine - Primary Care 12/26/22 documented as of this encounter
--- OUTSIDE RECORDS SUMMARY | 2024-05-18 20:03 | XMS_ITS | Encounter Summary ---
Author Organization [facility] Address [address] [place] [address] Care Team Providers Care Laboratory Administrative Director Name Role Phone Mariluz Watts MD Primary Care Provider [phone] Encounter Details Date Type Department Care Team ([facility] st Contact Info) Description 11/01/2020 Lab Requisition [facility] Pathology & Laboratory Medicine - [address] [address] Outr Resulting Lab, Provider Social History Tobacco [...] Priority Date/Time Associated Diagnosis Comments ZZCOVID-19 TEST [facility] PCR Today 11/01/2020 8:30 EST COVID-19 TESTING Routine 11/01/2020 8:30 EST documented in this encounter Results * COVID-19 TEST [facility] PCR (11/01/2020 8:30 EST) Swab ENTIRE NASOPHARYNX / Unknown 11/01/2020 8:30 EST 11/01/2020 16:03 EST Provider Outr Resulting Lab MICROBIOLOGY - GENERAL ORDERABLES [facility] [address] [place] [address] * COVID-19 TESTING (11/01/2020 8:30 EST) COVID-19 rt-PCR Result Negative Negative 11/02/2020 12:29 EST [facility] Comment: This test was developed and its performance characteristics determined by [facility]. It has not been cleared or approved by the US Food and Drug Administration. FDA does not require this test to go through premarket FDA review. This test is used for clinical purposes. It should not be regarded as investigational or for research. This laboratory is certified under the Clinical Laboratory Improvement Amendments (CLIA) as qualified to perform high complexity clinical laboratory testing. This test is based on the [facility] COVID-19 Emergency Use Authorization (EUA) assay, with minor modification as defined by the FDA Performed on the Identiv Pro RT-PCR System. Negative results do not preclude 2019-nCoV infection and should not be used as the sole basis for treatment or other patient management decisions. Negative results must be combined with clinical observations, patient history, and epidemiological information. Performing Lab [facility] Lab 11/02/2020 12:29 EST [facility] Swab 11/01/2020 8:30 EST 11/01/2020 16:03 EST Provider Outr Resulting Lab MICROBIOLOGY - GENERAL ORDERABLES [facility] [address] [place] [address] documented in this encounter Visit Diagnoses Not on filedocumented in this encounter Care Teams Laboratory Administrative Director Relationship Specialty Start Date End Date Mariluz Watts MD [address] [place] [address] PCP - General Family Medicine - Primary Care 12/26/22 documented as of this encounter
--- OUTSIDE RECORDS SUMMARY | 2024-05-18 20:03 | XMS_ITS | Encounter Summary ---
Author Organization [facility] Address [address] [place] [address] Care Team Providers Care Zipper Slide Attacher Name Role Phone Unavailable Primary Care Provider Unavailabl e Encounter Details Date Type Department Care Team (Latest Contact Info) Description 02/21/2001 13:54 EDT Hospital Encounter [address] [address] Celia Modi, Thea Cosby, HILAIRA Discharge Disposition: Auto Discharge Social History Tobacco Use Types Packs/Day Years Used Date Smoking Tobacco: Never Assessed Sex and Gender Information Value Date Recorded Sex Assigned at Not on file Gender Identity Not on file Sexual Orientation Not on file documented as of this encounter Discharge Disposition Disposition Code Departure Means Destination Auto Discharge documented in this encounter Plan of Treatment Not on file documented as of this encounter Procedures Procedure Name Priority Date/Time Associated Diagnosis Comments CA MAMMOGRAPHIC SCREEN ANDRES Routine 02/21/2001 15:07 EDT documented in this encounter Results * MA MAMMOGRAPHIC SCREEN ANDRES (02/21/2001 15:07 EDT) Anatomical Region Laterality Modality Other 02/21/2001 15:0 7 EDT Impressions 08/10/2009 1:20 EST IMPRESSION: LEFT BREAST - CATEGORY 0 Focal asymmetric density measuring 12 mm. Spot magnification view(s) are recommended at this time in the 5 degree angle cc and craniocaudal projections. RIGHT BREAST - CATEGORY 1 Negative, no evidence of malignancy. Normal interval follow-up is recommended in 12 months. OVERALL ASSESSMENT - INCOMPLETE: NEED ADDITIONAL IMAGING EVALUATION END OF IMPRESSION Narrative 08/10/2009 1:20 EST ROUTINE ?? HX CYSTS LT BR ?? [PCP JEFRY PRAJAPATI] Comparison is made to films from 01-17-2000 and 08-07-1996. Left Breast Findings: The breast is heterogeneously dense. This may lower the sensitivity of mammography. A focal asymmetric density is present measuring 12 mm, seen on the CC view only, lateral aspect. Right Breast Findings: The breast is heterogeneously dense. This may lower the sensitivity of mammography. No masses, significant calcifications or other abnormalities are seen. Procedure Note Evi Christianson MD / Marisela Johnson MD - 08/10/2009 ROUTINE HX CYSTS LT BR [PCP SIMON CHARLES, JEFRY MODI] Comparison is made to films from 01-17-2000 and 08-07-1996. Left Breast Findings: The breast is heterogeneously dense. This may lower the sensitivity of mammography. A focal asymmetric density is present measuring 12 mm, seen on the CC view only, lateral aspect. Right Breast Findings: The breast is heterogeneously dense. This may lower the sensitivity of mammography. No masses, significant calcifications or other abnormalities are seen. IMPRESSION IMPRESSION: LEFT BREAST - CATEGORY 0 Focal asymmetric density measuring 12 mm. Spot magnification view(s) are recommended at this time in the 5 degree angle cc and craniocaudal projections. RIGHT BREAST - CATEGORY 1 Negative, no evidence of malignancy. Normal interval follow-up is recommended in 12 months. OVERALL ASSESSMENT - INCOMPLETE: NEED ADDITIONAL IMAGING EVALUATION END OF IMPRESSION Celia Modi [facility] IM MAMMOGRAPHY ABE CARBALLO documented in this encounter Visit Diagnoses Not on filedocumented in this encounter
--- OUTSIDE RECORDS SUMMARY | 2024-05-18 20:03 | XMS_ITS | Encounter Summary ---
Author Organization [facility] Address [address] [place] [address] Care Team Providers Care Precinct Commanding Officer Name Role Phone Unavailable Primary Care Provider Unavailabl e Encounter Details Date Type Department Care Team ([facility] st Contact Info) Description 12/25/2012 Results Only [facility] - [facility] [address] [place], [place] [address] Mariluz Watts MD [facility] [address] [place] [phone] Social History Tobacco Use Types Packs/Day Years Used Date Smoking Tobacco: Never Assessed Sex and Gender Information Value Date Recorded Sex Assigned at Not on file Gender Identity Not on file Sexual Orientation Not on file documented as of this encounter Plan of Treatment Not on file documented as of this encounter Procedures Procedure Name Priority Date/Time Associated Diagnosis Comments PAP TEST- RESULT ONLY Routine 12/25/2012 0:00 EDT documented in this encounter Results * PAP TEST- RESULT ONLY (12/25/2012 0:00 EDT) Pathology Report: CYTOPATHOLOGY REPORT Reports generated via electronic interface contain original data; however they are lacking the format of the original report. Caution should be taken when reading/interpreti ng unformatted reports. Name: ? LESA DIAMOND Mauri ? Accession #: ? [id number] ? : ? 1945 (Age: 67) ??F ?Collect Date: ? 12/25/2012 ? Location: ? [facility] ? Receive Date: ? 12/26/2012 ? Provider: MARILUZ WATTS MD Copy to: ? Final Report SPECIMEN ADEQUACY ? Satisfactory for Evaluation - assessment of transformation zone component not applicable ( e.g. atrophy, vaginal sample, hysterectomy) - scant squamous epithelial component GENERAL CATEGORIZATION ? Negative for Intraepithelial Lesion or Malignancy ?? Menstrual/Pregnanc y Status: ??Post Menopausal Specimen/Source: ??Pap Test, Cervix/Endocervix, ThinPrep Imaging System with manual evaluation Document reviewed and electronically signed by: ? Jammie Hooper, ASHLYN(ASCP)(IAC) ? Report ??Date: 12/31/2012 16:42 HPV with Pap Test ? Date Ordered: ? 12/31/2012 ? Status: ?? Signed Out ?Date Complete: ? 01/02/2013 ? By: ??System Interface ? Date Reported: ? 01/02/2013 ? Interpretation RESULT: Negative for HPV. No E6 or E7 mRNA is detected from HPV types 16,18,31,33,35, 39,45,51,52,56,58, 59,66, and 68 by wage and salary administrator mediated amplification. Comments Document reviewed and electronically signed by: ? System Interface ? Report date: 01/02/2013 By the signature above, the attending physician certifies that he/she has personally conducted a gross and/or microscopic examination of the described specimens and rendered or confirmed the above diagnosis. End of Report [facility] 12/25/2012 12/26/2012 Mariluz Watts MD PATHOLOGY ORDERABLE S [facility] [address] [place] [address] documented in this encounter Visit Diagnoses Not on filedocumented in this encounter
--- OUTSIDE RECORDS SUMMARY | 2024-05-18 20:03 | XMS_ITS | Encounter Summary ---
Author Organization [facility] Address [address] [place] [address] Care Team Providers Care Supervisor Spinning Name Role Phone Unavailable Primary Care Provider Unavailabl e Encounter Details Date Type Department Care Team ([facility] st Contact Info) Description 11/25/2006 Results Only [facility] [address] [place] [address] Mariluz Watts MD [address] [place] [address] [address] [place] [address] Social History Tobacco Use Types Packs/Day Years Used Date Smoking Tobacco: Never Assessed Sex and Gender Information Value Date Recorded Sex Assigned at Not on file Gender Identity Not on file Sexual Orientation Not on file documented as of this encounter Plan of Treatment Not on file documented as of this encounter Procedures Procedure Name Priority Date/Time Associated Diagnosis Comments CYTOPATHOLOGY Routine 11/25/2006 0:00 EST documented in this encounter Results * CYTOPATHOLOGY (11/25/2006 0:00 EST) Pathology Report: CYTOPATHOLOGY REPORT Reports generated via electronic interface contain original data; however they are lacking the format of the original report. Caution should be taken when reading/interpreti ng unformatted reports. Name: ? DIAMOND MCFADDEN ? Accession #: ? [id number] : ? 1945 (Age: 60) ??F ?Collect Date: ? 11/25/2006 Location: ? [facility] ? Receive Date: ? 11/27/2006 Provider: ?MARILUZ WATTS MD Copy to: ? Specimen/Source: ?ThinPrep Pap Test, Endocervix, processed on [employer] ThinPrep Imaging System, with manual evaluation Last Menstrual Period: ? 10/01 Other: ? HPVA - HPV testing requested if ASC-US on the current ThinPrep Pap test. ? SPECIMEN ADEQUACY ? Satisfactory for Evaluation - transformation zone component present GENERAL CATEGORIZATION ? Negative for Intraepithelial Lesion or Malignancy ? Document reviewed and electronically signed by: ? Julianne Whitehead, SCT(ASCP) ? Report Date: ??11/28/2006 12:46 End of Report [facility] 11/25/2006 11/27/2006 Mariluz Watts MD PATHOLOGY ORDERABLE S [facility] [address] [place] [address] documented in this encounter Visit Diagnoses Not on filedocumented in this encounter
--- OUTSIDE RECORDS SUMMARY | 2024-05-18 20:03 | XMS_ITS | Encounter Summary ---
Author Organization [facility] Address [address] [place] [address] Care Team Providers Care Pizza Driver Name Role Phone Unavailable Primary Care Provider Unavailabl e Encounter Details Date Type Department Care Team ([facility] st Contact Info) Description 05/02/2017 Results Only [facility] [phone] Mariluz Watts MD [address] [place] [address] Social History Tobacco Use Types [...] Diagnosis Comments PAP TEST- RESULT ONLY Routine 05/02/2017 0:00 EDT documented in this encounter Results * PAP TEST- RESULT ONLY (05/02/2017 0:00 EDT) Pathology Report: CYTOPATHOLOGY REPORT Reports generated via electronic interface contain original data; however they are lacking the format of the original report. Caution should be taken when reading/interpreti ng unformatted reports. Name: ? DIAMOND GAMING ? Accession #: ? [id number] ? : ? 1945 (Age: 71) ??F ?Collect Date: ? 05/02/2017 ? Location: ? [facility] ? Receive Date: ? 05/03/2017 ? Provider: MARILUZ WATTS MD Copy to: ? Final Report SPECIMEN ADEQUACY ? Satisfactory for Evaluation - assessment of transformation zone component not applicable ( e.g. atrophy, vaginal sample, hysterectomy) - scant squamous epithelial component GENERAL CATEGORIZATION ? Negative for Intraepithelial Lesion or Malignancy ?? 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 ASHLYN Durant(ASCP) ? Report ??Date: 05/13/2017 13:04 HPV with Pap Test ? Date Ordered: ? 05/13/2017 ? Status: ?? Signed Out ?Date Complete: ? 05/14/2017 ? By: ??System Interface ? Date Reported: ? 05/14/2017 ? Interpretation RESULT: Negative for HPV. No E6 or E7 mRNA is detected from HPV types 16,18,31,33,35, 39,45,51,52,56,58, 59,66, and 68 by oracle manufacturing consultant mediated amplification. Comments Document reviewed and electronically signed by: ? System Interface ? Report date: 05/14/2017 By the signature above, the attending physician certifies that he/she has personally conducted a gross and/or microscopic examination of the described specimens and rendered or confirmed the above diagnosis. End of Report [facility] 05/02/2017 05/03/2017 Mariluz Watts MD PATHOLOGY ORDERABLE S Performing Organization Address City/State/[facility] Co de Phone Number [facility] [address] [place] [address] documented in this encounter Visit Diagnoses Not on filedocumented in this encounter
--- OUTSIDE RECORDS SUMMARY | 2024-05-18 20:03 | XMS_ITS | Encounter Summary ---
Author Organization [facility] Address [address] [place] [address] Care Team Providers Care Animal Services Officer Name Role Phone Mariluz Watts MD Primary Care Provider [phone] Encounter Details Date Type Department Care Team ([facility] st Contact Info) Description 05/12/2021 Lab Requisition [facility] Pathology & Laboratory Medicine - [address] [address] Outr Resulting Lab, Provider Social History Tobacco [...] Comments FECAL BACTERIAL PATHOGENS BY PCR Routine 05/11/2021 19:50 EDT documented in this encounter Results * FECAL BACTERIAL PATHOGENS BY PCR (05/11/2021 19:50 EDT) Salmonella PCR Negative Negative 05/12/2021 21:36 EDT [facility] Shigella/Enteroin vasive E. coli Negative Negative 05/12/2021 21:36 EDT [facility] HN LAB CAMPYLOBACTER PCR Negative Negative 05/12/2021 21:36 EDT [facility] Shiga Toxin PCR Negative Negative 21:36 EDT [facility] Feces SPECIMEN FROM RECTUM / Unknown 05/11/2021 19:50 EDT 05/12/2021 16:44 EDT Provider Outr Resulting Lab MICROBIOLOGY - GENERAL ORDERABLES [facility] [address] [place] [address] documented in this encounter Visit Diagnoses Not on filedocumented in this encounter Care Teams Animal Services Officer Relationship Specialty Start Date End Date Mariluz Watts MD [address] [place] [address] [address] [place] [address] PCP - General Family Medicine - Primary Care 12/26/22 documented as of this encounter
--- OUTSIDE RECORDS SUMMARY | 2024-05-18 20:03 | XMS_ITS | Encounter Summary ---
Author Organization [facility] Address [address] [place] [address] Care Team Providers Care Stock Order Lister Name Role Phone Unavailable Primary Care Provider Unavailabl e Encounter Details Date Type Department Care Team (Latest Contact Info) Description 01/17/2000 13:45 EDT Hospital Encounter [address] [address] Thea Charlton, JEWELRY MAKER Discharge Disposition: Auto Discharge Social History Tobacco [...] Procedure Name Priority Date/Time Associated Diagnosis Comments ND MAMMOGRAPHIC SCREEN ANDRES Routine 01/17/2000 14:26 EDT documented in this encounter Results * MA MAMMOGRAPHIC SCREEN ANDRES (01/17/2000 14:26 EDT) Anatomical Region Laterality Modality Other 01/17/2000 14:2 6 EDT Impressions 08/09/2009 9:12 EST IMPRESSION: LEFT BREAST - CATEGORY 2 Oval mass measuring 45 mm in the upper outer quadrant, increased in size. Benign, no evidence of malignancy. Normal interval follow-up is recommended in 12 months. RIGHT BREAST - CATEGORY 1 Negative, no evidence of malignancy. Normal interval follow-up is recommended in 12 months. OVERALL ASSESSMENT - BENIGN END OF IMPRESSION Narrative 08/09/2009 9:12 EST ROUTINE,HX CYSTS,NO NEW PROBLEMS (LAVELLE PRAJAPATI - CEE MODI,RERandy) Comparison is made to films from 12-07-1998, 08-19-1996, and 08-07-1996. Left Breast Findings: There are scattered fibroglandular densities. An oval mass with circumscribed margins is present measuring 45 mm in the upper outer quadrant. Since the last study, the mass has increased in size. This was a cyst on prior ultrasound in 1995. There are other similar nodules in the upper outer aspect which have decreased in size and are likely benign cysts. Right Breast Findings: There are scattered fibroglandular densities. No masses, significant calcifications or other abnormalities are seen. Procedure Note Devaughn Kearns MD / Evi Christianson MD - 08/09/2009 ROUTINE,HX CYSTS,NO NEW PROBLEMS (LAVELLE PRAJAPATI - CEE MODI,JEFRY) Comparison is made to films from 12-07-1998, 08-19-1996, and 08-07-1996. Left Breast Findings: There are scattered fibroglandular densities. An oval mass with circumscribed margins is present measuring 45 mm in the upper outer quadrant. Since the last study, the mass has increased in size. This was a cyst on prior ultrasound in 1995. There are other similar nodules in the upper outer aspect which have decreased in size and are likely benign cysts. Right Breast Findings: There are scattered fibroglandular densities. No masses, significant calcifications or other abnormalities are seen. IMPRESSION IMPRESSION: LEFT BREAST - CATEGORY 2 Oval mass measuring 45 mm in the upper outer quadrant, increased in size. Benign, no evidence of malignancy. Normal interval follow-up is recommended in 12 months. RIGHT BREAST - CATEGORY 1 Negative, no evidence of malignancy. Normal interval follow-up is recommended in 12 months. OVERALL ASSESSMENT - BENIGN END OF IMPRESSION Cee Modi CF IMG MAMMOGRAPHY ORDE HARIS documented in this encounter Visit Diagnoses Not on filedocumented in this encounter
--- OUTSIDE RECORDS SUMMARY | 2024-05-18 20:03 | XMS_ITS | Encounter Summary ---
Author Organization [facility] Address [address] [place] [address] Care Team Providers Care Voltmeter Operator Name Role Phone Unavailable Primary Care Provider Unavailabl e Encounter Details Date Type Department Care Team ([facility] st Contact Info) Description 02/05/2001 Results Only [facility] - Maple conversion [address] [place] [address] Thea Charlton, PLASTICS PROCESS HAND Social History Tobacco Use Types Packs/Day Years Used Date Smoking Tobacco: Never Assessed Sex and Gender Information Value Date Recorded Sex Assigned at Not on file Gender Identity Not on file Sexual Orientation Not on file documented as of this encounter Plan of Treatment Not on file documented as of this encounter Procedures Procedure Name Priority Date/Time Associated Diagnosis Comments CYTOPATHOLOGY Routine 02/05/2001 0:00 EDT documented in this encounter Results * CYTOPATHOLOGY (02/05/2001 0:00 EDT) Pathology Report: CYTOPATHOLOGY REPORT Reports generated via electronic interface contain original data; however they are lacking the format of the original report. Caution should be taken when reading/interpreti ng unformatted reports. Name: ? DIAMOND GAMING ? Accession #: ? [id number] : ? 1945 (Age: 55) ??F ?Collect Date: ? 02/05/2001 Location: ? [facility] ? Receive Date: ? 02/06/2001 Provider: ?THEA CHARLTON PLASTICS PROCESS HAND Copy to: ? Specimen/Source: ?Conventional Pap Test, Cervix/Endocervix Last Menstrual Period: ? 12/22/00 ? SPECIMEN ADEQUACY ? Satisfactory for evaluation. GENERAL CATEGORIZATION ? Within Normal Limits ? Document reviewed and electronically signed by: ? Julianne Whitehead, SCT(ASCP) ? Report Date: ??02/07/2001 10:09 End of Report [facility] KO 02/05/2001 02/06/2001 Thea Charlton NP PATHOLOGY ORDERABLES [facility] [address] [place] [address] documented in this encounter Visit Diagnoses Not on filedocumented in this encounter
--- OUTSIDE RECORDS SUMMARY | 2024-05-18 20:03 | XMS_ITS | Encounter Summary ---
Author Organization [facility] Address [address] [place] [address] Care Team Providers Care Director Of Quality Name Role Phone Unavailable Primary Care Provider Unavailabl e Encounter Details Date Type Department Care Team ([facility] st Contact Info) Description 12/18/1999 Results Only [facility] - Maple conversion [address] [place] [address] Thea Charlton, BEATER LEAD Social History Tobacco Use Types Packs/Day Years Used Date Smoking Tobacco: Never Assessed Sex and Gender Information Value Date Recorded Sex Assigned at Not on file Gender Identity Not on file Sexual Orientation Not on file documented as of this encounter Plan of Treatment Not on file documented as of this encounter Procedures Procedure Name Priority Date/Time Associated Diagnosis Comments CYTOPATHOLOGY Routine 12/18/1999 8:33 EST documented in this encounter Results * CYTOPATHOLOGY (12/18/1999 8:33 EST) Pathology Report: CYTOPATHOLOGY REPORT Reports generated via electronic interface contain original data; however they are lacking the format of the original report. Caution should be taken when reading/interpreti ng unformatted reports. Name: ? DIAMOND GAMING ? Accession #: ? [id number] : ? 1945 (Age: 54) ??F ?Collect Date: ? 12/18/1999 Location: ?Receive Date: ? 12/18/1999 Provider: ?THEA CHARLTON NP Copy to: ?THEA CHARLTON NP ? Specimen/Source: ?Pap Smear (One Slide) Last Menstrual Period: ? GYNECOLOGIC ??CYTOPATHOLOGY ??REPORT Name: DIAMOND GAMING ? FA : 1945 ?? 54Y F ?Client ID: [id number] SS#: [id number] ? Clinician: TEMITOPE CHARLTON NP ?? Location: [facility] ??Copy to: ?? Specimen: ?Pap Smear (One Slide) ? Source: Cervix/Endocervix ?Collected: 12/13/99 ? Received: 12/18/1999 ?LMP: 11/13/99 ? Hormone Therapy: No ? : No ? Radiation Therapy: No ?? Post : No ?Chemotherapy: No ?IUD: No ? Prev Abnormal Pap: No ?? Clinical Hx: ?(Blank traylor indicate information not provided on requisition) SPECIMEN ADEQUACY: ? Satisfactory For Evaluation ?? GENERAL CATEGORIZATION: ? WITHIN NORMAL LIMITS ? Reviewed And Electronically Signed By: ? Julianne Whitehead, SCT(ASCP) ? Report Date: ?? 12/21/1999 [facility] Archived Tests - Final Diagnosis Text Field: Clinical History : ? Document reviewed and electronically signed by: ? Conversion ? Report Date: ??12/21/1999 00:00 End of Report [facility] KO 12/18/1999 8:33 EST 12/18/1999 8:34 EST Thea Charlton BEATER LEAD PATHOLOGY ORDERABLES [facility] [address] [place] [address] documented in this encounter Visit Diagnoses Not on filedocumented in this encounter
--- OUTSIDE RECORDS SUMMARY | 2024-05-18 20:03 | XMS_ITS | Encounter Summary ---
Author Organization [facility] Address [address] [place] [address] Care Team Providers Care Tenterer Name Role Phone Unavailable Primary Care Provider Unavailabl e Encounter Details Date Type Department Care Team ([facility] st Contact Info) Description 12/06/2008 Before PRISM Converted Visit (Maple) [facility] - Maple conversion [address] [place] [address] Mariluz Watts MD [address] [place] [id number] Social History Tobacco Use Types Packs/Day Years Used Date Smoking Tobacco: Never Assessed Sex and Gender Information Value Date Recorded Sex Assigned at Not on file Gender Identity Not on file Sexual Orientation Not on file documented as of this encounter Plan of Treatment Not on file documented as of this encounter Procedures Procedure Name Priority Date/Time Associated Diagnosis Comments HPV DETECTION, HIGH RISK TYPES Routine 12/06/2008 10:01 EDT CYTOPATHOLOGY Routine 12/06/2008 0:00 EDT documented in this encounter Results * HUMAN PAPILLOMA VIRUS DNA TEST (12/06/2008 10:01 EDT) Specimen Description Cervix, ThinPrep vial [facility] Result Negative for HPV types 16, 18, 31, 33, 35, 39, 45, 51, 52, 56, 58, 59, and 68. [facility] Report Status Final 12/15/2008 [facility] 12/06/2008 10:0 1 EDT 12/10/2008 10:01 EDT Mariluz Watts MD MICROBIOLOGY - GENE RAL ORDERABLES [facility] [address] [place] [address] * CYTOPATHOLOGY (12/06/2008 0:00 EDT) Pathology Report: CYTOPATHOLOGY REPORT ? Reports generated via electronic interface contain original data; ? however they are lacking the format of the original report. ? Caution should be taken when reading/interpreti ng unformatted reports. ? Name: ? DIAMOND GAMING ? Accession #: ? [id number] ? : ? 1945 (Age: 62) ??F ?Collect Date: ? 12/06/2008 ? Location: ? [facility] ? Receive Date: ? 12/07/2008 ? Provider: ?MARILUZ M DOBBERTIN MD ? Copy to: ? Specimen/Source: ?Pap Test, Endocervix, ThinPrep Imaging System with ? manual evaluation ? 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 Other: ? HPVDX - HPV testing requested regardless of diagnosis on current ThinPrep Pap ?? test. ? SPECIMEN ADEQUACY ? Satisfactory for Evaluation ? - transformation zone component present ? GENERAL CATEGORIZATION ? Negative for Intraepithelial Lesion or Malignancy ? Document reviewed and electronically signed by: ? Devaughn Tarango, CT(ASCP) ? Report Date: ??12/09/2008 14:52 ? End of Report ? [facility] KO 12/06/2008 12/07/2008 Mariluz Watts MD PATHOLOGY ORDERABLE S [facility] [address] [place] [address] documented in this encounter Visit Diagnoses Not on filedocumented in this encounter
--- OUTSIDE RECORDS SUMMARY | 2024-05-18 20:03 | XMS_ITS | Encounter Summary ---
Author Organization [facility] Address [address] [place] [address] Care Team Providers Care Sole Leveler Machine Name Role Phone Unavailable Primary Care Provider Unavailabl e Encounter Details Date Type Department Care Team (Latest Contact Info) Description 03/12/2001 7:45 EDT - 03/12/2001 11:59 EDT Hospital Encounter [facility] - [address] [address] Celia Modi CFNP Discharge Disposition: Auto Discharge Social History Tobacco [...] Procedure Name Priority Date/Time Associated Diagnosis Comments TORITO COHEN DIGITAL UNILATERAL ADDED VIEWS Routine 03/12/2001 8:12 EDT documented in this encounter Results * TORITO BEARDEN DIAG DIGITAL UNILATERAL ADDED VIEWS (03/12/2001 8:12 EDT) Anatomical Region Laterality Modality Other 03/12/2001 8:12 EDT Impressions 08/19/2009 0:08 EST IMPRESSION: LEFT BREAST - CATEGORY 1 Negative, no evidence of malignancy. Normal interval follow-up is recommended in 12 months. OVERALL ASSESSMENT - NEGATIVE END OF IMPRESSION Narrative 08/19/2009 0:08 EST AV LEFT BREAST ASYM DENSITY LATERAL ASPECT Comparison is made to films from 02-21-2001 and 08-07-1996. Left Breast Findings (additional views projection): A questionable abnormality noted on the prior exam is evaluated with compression-magnification views. The area in question compresses out, consistent with normal fibroglandular tissue. There is no evidence of a persistent mass. Procedure Note Marisela Johnson MD - 08/19/2009 AV LEFT BREAST ASYM DENSITY LATERAL ASPECT Comparison is made to films from 02-21-2001 and 08-07-1996. Left Breast Findings (additional views projection): A questionable abnormality noted on the prior exam is evaluated with compression-magnification views. The area in question compresses out, consistent with normal fibroglandular tissue. There is no evidence of a persistent mass. IMPRESSION IMPRESSION: LEFT BREAST - CATEGORY 1 Negative, no evidence of malignancy. Normal interval follow-up is recommended in 12 months. OVERALL ASSESSMENT - NEGATIVE END OF IMPRESSION Celia GOLDSMITH IMG MAMMOGRAPHY JEFFE HARIS documented in this encounter Visit Diagnoses Not on filedocumented in this encounter
== END 2024-05-18 19:53 | disposition home or self-care (01) ==
LOC: LBN 19:52
PROVIDERS: PCP Family Medicine; Visit Provider Nurse Practitioner Gerontology
DX: N39.0 Urinary tract infection, site not specified (principal); R82.89 Other abnormal findings on cytological and histological examination of urine
CPT/HCPCS: 87077; 81003; 81015; 87086; 87186

== ENCOUNTER 2024-05-21 06:04 | Day surgery (SDC) | payer MEDICARE, SELFPAY ==
--- OUTSIDE RECORDS SUMMARY | 2024-05-21 06:06 | XMS_ITS | Encounter Summary ---
[place] [address] Care Team Providers Care Crap Game Box Person Name Role Phone Mariluz Watts MD Primary Care Provider [phone] Encounter Details Date Type Department Care Team [...] PM EST Office [place] [address] Paula Harris PA [facility] [place] [address] 01/26/2025 9:50 AM EDT Appointment Mammography/DXA at [place] [phone] Joan Deutsch, [facility] [place] [address] 01/26/2025 10:50 AM EDT Office [place] [address] Joan Deutsch, [facility] [place] [address] documented as of this encounter Visit Diagnoses Not on filedocumented in this encounter Care Teams Crap Game Box Person Relationship Specialty Start Date End Date Mariluz Watts MD [address] [place] [address] PCP - General 08/22/10 documented as of this encounter
--- OUTSIDE RECORDS SUMMARY | 2024-05-21 06:06 | XMS_ITS | Encounter Summary ---
Author Organization [facility] [place] [address] Care Team Providers Care Recycling Operations Manager Name Role Phone Mariluz Watts MD Primary Care Provider Reason for Visit * Reason Comments Rosacea Encounter Details Date Type Department Care Team (Late st Contact Info) Description 04/23/2024 4:20 PM EDT Office Visit Dermatology at [facility] [address] [place] [address] Cornell Hernández MD [facility] [place] [address] Rosacea Social History Tobacco Use Types Packs/Day Years Used Date Smoking Tobacco: Former Cigarettes 1 3 0 09/30/1965 - 09/30/1968 Smokeless Tobacco: Never Alcohol Use Standard Drinks/Week Comments No 0 (1 standard drink = 0.6 oz pur e alcohol) [facility] Inpatient Questions Answer Date Recorded [...] cream - apply toface BID - Email: [email or web address] - Phone number: [phone] - Discussed redness is best treated with [...] RTC: Yearly for refills []Note routed to secretary office clerk []Recall placed in scheduling system []Appointment scheduled at checkout Scribe attestation: Thu Franco [facility] has performed the documentation for this encounter inthe presence of and acting as a scribe for Cornell Hernández MD. I performed the above scribed service and agree with the accuracy of the documentation in this encounter. Reviewed and signed by: Cornell Hernández MD [facility] Staff director of manufacturing: José Manuel Kelly MD [facility] * José Manuel Kelly MD - 04/23/2024 4:20 PM EDT I was the supervising physician working with the Dermatology resident, Cornell Hernández MD, in the care of this Dermatology patient in person. For the purposes of billing, the resident provided the care. I have reviewed the encounter note details and level of service. JOSÉ MANUEL KELLY MD Staff Heating Unit Installer Department of Dermatology [facility] documented in this encounter Plan of Treatment Upcoming Encounters Date Type Department Care Team (Late st Contact Info) Description 11/16/2024 1:00 PM EST Office Visit General Surgery at [place] [address] Paula Harris PA [facility] [place] [address] 01/26/2025 9:50 AM EDT Appointment Mammography/[place] [address] Joan Deutsch, [facility] [place] [address] 01/26/2025 10:50 AM EDT Office Visit General Surgery at [place] [phone] Joan Deutsch, [facility] [place] [address] documented as of this encounter Visit Diagnoses Diagnosis Rosacea documented in this encounter Care Teams Recycling Operations Manager Relationship Specialty Start Date End Date Mariluz Watts MD [address] [place] [address] PCP - General 08/22/10 documented as of this encounter
--- OUTSIDE RECORDS SUMMARY | 2024-05-21 06:06 | XMS_ITS | Encounter Summary ---
Author Organization [facility] [place] [address] Care Team Providers Care Steel Pourer Helper Name Role Phone Mariluz Watts MD Primary Care Provider [phone] Reason for Visit * Reason Comments Skin Lesion Encounter Details Date Type Department Care Team (Late st Contact Info) Description 01/21/2024 8:40 AM EDT Office Visit Dermatology at [facility] [address] [place] [address] Meagan Franks MD [facility] [place] [address] Telangiectasia Social History Tobacco Use Types Packs/Day Years Used Date Smoking Tobacco: Former Cigarettes 1 3 0 09/30/1965 - 09/30/1968 Smokeless Tobacco: Never Alcohol Use Standard Drinks/Week Comments No 0 (1 standard drink = 0.6 oz pur e alcohol) [facility] Inpatient Questions Answer Date Recorded Does [...] Provider: [facility] Patient's preferred name Diamond Preferred contact method [...] for follow up nose [x]Note routed to medical assistant secretary []Recall placed in scheduling system []Appointment scheduled at checkout Scribe attestation: JOSEFINA RUIZ LPN has performed the documentation for this encounter in the presence of and acting as a scribe for MEAGAN FRANKS MD. I performed the above scribed service and agree with the accuracy of the documentation in this encounter. Reviewed and signed by: MEAGAN FRANKS MD Dermatology [facility] documented in this encounter Plan of Treatment Upcoming Encounters Date Type Department Care Team (Late st Contact Info) Description 11/16/2024 1:00 PM EST Office [place] [address] Paula Harris PA [facility] [place] [address] 01/26/2025 9:50 AM EDT Appointment Mammography/[place] [address] Joan Deutsch [facility] [place] [address] 01/26/2025 10:50 AM EDT Office Visit General Surgery at [place] [phone] Joan Deutsch [facility] [place] [address] documented as of this encounter Visit Diagnoses Diagnosis Telangiectasia Other and unspecified capillary diseases documented in this encounter Care Teams Steel Pourer Helper Relationship Specialty Start Date End Date Mariluz Watts MD [address] [place] [address] [address] [facility] [address] [place] [address] PCP - General 08/22/10 documented as of this encounter
--- OUTSIDE RECORDS SUMMARY | 2024-05-21 06:06 | XMS_ITS | Clinical Summary ---
Author Organization [facility] [place] [address] Care Team Providers Care Fence Gate Assembler Name Role Phone Mariluz Watts MD Primary Care Provider [phone] Allergies Active Allergy Reactions Criticality Noted Date [...] three or four times a day. Active calcium carb-mag ox-zinc gluc 333-133-5 mg [...] into skin and subcutaneous tissues (CPT code 13213) left total hip arthroplasty, anterior Hueter approach with [place] table (CPT code 08212) Left hip intraoperative radiologic examination (CPT code 11942) Amicar infusion (5 g IV load, then 1g/hr x 3 hrs) Components Used: Nicole Accolade stem, size 4, 127 degrees Trident PSLcup, 52 mm, solid 32 mm ID, alumina 32-4 mm alumina head Hip pain 01/25/2012 S/P Right ARSLAN 03/06/2005 (Arcadio) 01/25/2012 Overview (01/28/2012): SURGERY DATE: 03/06/2005 ARCADIO STEINER, NICK Angel Surgical Procedure Performed: Right total hip arthroplasty, cementless, uavnjyp-jk-tlnyfca Components Used: Nicole Trident 52 shell outer [...] PM EDT Office [place] [address] Aria Higuera MD AIN III (anal intraepithelial neoplasia III) 05/17/2024 Travel 04/23/2024 4:20 PM EDT Office Visit Dermatology at [place] [address] [place] [address] Cornell Hernández MD Rosacea 04/23/2024 Travel from Last 3 Months Immunizations [...] PM EST Office [place] [phone] Paula Harris PA [facility] [place] [address] 01/26/2025 9:50 AM EDT Appointment Mammography/[place] [phone] Joan Deutsch APRN [facility] [place] [address] 01/26/2025 10:50 AM EDT Office [place] [phone] Joan Deutsch, GE [facility] [place] [address] Health Maintenance Due Date Last Done Comments [...] history exists Medical Devices Implanted Type Area Scientist Immunology Device Identifier Shelf Expiration Date Model / Serial / Lot Shell,Acetabu lar,Trident,P sl,S ([id number]) (Autoreq) - [id number] Implanted:Qty : 1 on 07/22/2012 at [facility] IMPLANTS DO NOT USE Livevol - 6109 [id number] E / / [id number] Insert,Triden t,Alumina,0,D eg,3 (0093756) (Autoreq) - [id number] Implanted:Qty : 1 on 07/22/2012 at [facility] IMPLANTS DO NOT USE Livevol - 6109 625-0T-32 E / / [id number] Stem,Fem,Acco lade,127,Deg, Neck (0909933) (Autoreq) - [id number] Implanted:Qty : 1 on 07/22/2012 at [facility] IMPLANTS DO NOT USE Livevol - 6109 [id number] / / [id number] Cable,Ss,Crmp ,1.5e501ia,St r (2001049) - [id number] Implanted:Qty : 1 on 07/22/2012 at [facility] IMPLANTS DO NOT USE Alchip - [id number] 02/27/2017 298.801.0 1S / / [id number] Head,Fem,Alum jose,V40,-4x32 mm (5594481) (Autoreq) - [id number] Implanted:Qty : 1 on 07/22/2012 at [facility] IMPLANTS DO NOT USE Livevol - 6109 09/29/2015 6565-0-03 2 / / [id number] Stent,Contour 1gnd38ag ([id number]) - [id number] Implanted:Qty : 1 on 07/27/2015 by Rohan James MD at [facility] IMPLANTS Left: Ureter DO NOT USE [employer] - [id number] 03/20/2018 180-222 / / Explanted Type Area Scientist Immunology Device Identifier Shelf Expiration Date Model / Serial / Lot Stent,Contour- Vl,[id number] ([id number]) - [id number] Implanted:Qty: 1 on 07/11/2015 by Jose D Chauhan III, MD at [facility] Explanted:Qty: 1 on 07/27/2015 by Rohan James MD at [facility] IMPLANTS DO NOT USE [employer] - [id number] 12/28/2017 180-156 / / [id number] Procedures Procedure Name Priority Date/Time Associated Diagnosis [...] Bilateral (01/21/2024 10:07 AM EDT) WORKSTATION ID [id number] 2 DH RAD Anatomical Region Laterality Modality [...] who have questions please contact the health critical care rn that requested your imaging first. ? Electronically signed by: Beata Narayan MD, [facility] ([phone]), at 01/21/2024 10:32 AM Narrative 01/21/2024 10:32 AM EDT EXAMINATION: MAMMO [...] * COLONOSCOPY (09/07/2022 7:41 AM EST) Pathologist [facility] COLONOSCOPY [facility] Endoscopy Procedure Date: 09/07/2022 7:41 AM ? Patient Name: Diamond Gaming ? Date of : 1945 ? Age: 76 ? Order #: [id number] ? Instrument Name: [id number] ? Procedure: ? Colonoscopy Indications: ? High risk colon cancer ? surveillance: Personal history of ? colonic polyps Patient Profile: ? This is a 76 year old female. Refer ? to note in patient chart for ? documentation of history and ? physical. Last Colonoscopy: 2017. Providers: ? Mayur Banuelos MD, Navi R. ? [place] Martinez, Beckie Lee Referring MD: ?Mariluz Watts MD Medicines: ? Midazolam [...] preparation was evaluated ? using the BBPS ([place] Bowel ? Preparation Scale) with scores of: [...] were successfully placed (MR ? conditional). Clip robotic technician: Steris 11 and 16mm. ? There was [...] BMD measurements and plots are available in EAttendify under the imaging tab. Paper copies will be sent to providers without EAttendify access. If you have received this report without the data sheet and do not have access to Virax, please contact Radiology [facility] at [phone] Saturday thru Saturday 8am-4pm. Thank you for letting us participate in the care of this patient. ??If you are a health care provider and have any questions regarding this report, please contact the number below. ??For patients who have questions please contact the health critical care rn that requested your imaging first. ? Narrative [...] previous, 0.086 ??g/cm2 (9.9 %) increase. At [facility], least significant change for bone mineral [...] the lumbar spine and left forearm usingthe Holo[employer]ooks Horizon A system. L1 and L3 were excluded from analysis due tostandard deviation difference. FINDINGS: Lowest T-score at the diagnostic region of interest: T-score: -2.7, ROMÁN: One third distal radius, WHO diagnosis:osteoporosis. ......... Comparison......... Previous scan:November 2019 Total spine: Compared to the previous, 0.086 g/cm2 (9.9 %) increase. At [facility], least significant change for bonemineral density [...] BMD measurements and plots are available in [employer]ienceunder the imaging tab. Paper copies will be sent to providers without Virax access.If you have received this report without the data sheet and do not haveaccess to Virax, please contact Radiology [facility] at [phone] Saturday thruFriday 8am-4pm. Thank you for letting us participate in the care of this patient. If youare a health care provider and have any questions regarding this report,please contact the number below. For patients who have questions please contactthe health critical care rn that requested your imaging first. Electronically signed by: Juan Antonio Ibarra MD, [facility]([phone]), at 12/26/2021 12:42 PM Abrahan Merlos MD IMG DEXA ORDERABLES * Hepatitis C Antibody (11/28/2018 10:20 AM EST) Hepatitis C Antibody Negative Negative [facility] Blood specimen (specimen) Venous Draw / Unknown 11/28/2018 10:20 AM EST 11/28/2018 10:51 AM EST Narrative Resulting Agency Comment Spec In Lab Mariluz Watts MD CHEMISTRY ORDERABLES [facility] [place] [address] from Last 3 Months or Most Recently Relevant to Health Maintenance Advance Directives Documents on File Type Date Recorded Patient Agency Appointments Supervisor Expl anation POLST/COLST (Order for Life Sustaining Treatment) 11/26/2019 1:52 PM Advance Directives and Living Will 10/28/2019 9:53 AM signed on 10/21/2019 Personal Agency Appointments Supervisor 12/12/2022 9:20 AM PERSONAL REP FORM [...] Communication Ashley Smith Friend Health Care Agent [phone] (Home) Willy Gaming Child First Alternate Health Care Agent [email or web address] Care Teams Fence Gate Assembler Relationship Specialty Start Date End Date Mariluz Watts MD [address] [place] [address] PCP - General 08/22/10
--- OUTSIDE RECORDS SUMMARY | 2024-05-21 06:06 | XMS_ITS | Encounter Summary ---
[facility] [place] [address] Care Team Providers Care Sand Technician Name Role Phone Mariluz Watts MD Primary Care Provider [phone] Encounter Details Date Type Department Care Team (Latest Contact Info) Description 01/21/2024 9:38 AM EDT - 01/21/2024 11:59 PM EDT Hospital Encounter Mammography/[place] [address] Joan Deutsch, GE [facility] [place] [address] Encounter for screening mammogram for breast cancer Discharge Disposition: Home Social History Tobacco Use Types Packs/Day Years Used Date Smoking Tobacco: Former Cigarettes 1 3 0 09/30/1965 - 09/30/1968 Smokeless Tobacco: Never Alcohol Use Standard Drinks/Week Comments No 0 (1 standard drink = 0.6 oz pur e alcohol) REPLACED BY [facility] Inpatient Questions Answer Date Recorded Does Anyone [...] Sig Dispensed Refills Start Date End Date calcium carb-mag ox-zinc gluc 333-133-5 mg Tablet [...] Take 20 mg by mouth daily. 10/10/2021 sulfamethoxazole-trimet hoprim (Bactrim) 400-80 mg tablet Take 1 tablet by mouth Daily at Noon. 01/01/2024 05/19/2024 documented as of this encounter Plan of Treatment Upcoming Encounters Date Type Department Care Team (Late st Contact Info) Description 11/16/2024 1:00 PM EST Office [place] [address] Paula Harris PA [facility] [place] [address] 01/26/2025 9:50 AM EDT Appointment Mammography/[place] [address] Joan Deutsch ACETYLENE OPERATOR [facility] [place] [address] 01/26/2025 10:50 AM EDT Office [place] [phone] Joan Deutsch, ACETYLENE OPERATOR [facility] [place] [address] documented as of this encounter Procedures Procedure Name Priority Date/Time Associated Diagnosis Comments MAMMO SCREENING CAD AND CINDY BILATERAL Routine 01/21/2024 10:07 AM EDT Encounter for screening mammogram for breast cancer documented in this encounter Results * Mammo Screening Cad and Cindy Bilateral (01/21/2024 10:07 AM EDT) [place] WORKSTATION ID [id number] 2 DH RAD Anatomical Region Laterality Modality [...] questions please contact the health home care manager rn that requested your imaging first. ? [...] and left breast. Stable appearance. Joan Deutsch ACETYLENE OPERATOR IMG MAMMO ORDERABLE S documented in this encounter Visit Diagnoses Diagnosis Encounter for screening mammogram for breast cancer documented in this encounter Care Teams Sand Technician Relationship Specialty Start Date End Date Mariluz Watts MD [address] [place] [address] PCP - General 08/22/10 documented as of this encounter
--- OUTSIDE RECORDS SUMMARY | 2024-05-21 06:06 | XMS_ITS | Encounter Summary ---
[place] [address] Care Team Providers Care Customs Compliance Director Name Role Phone Mariluz Watts MD [...] PM EST Office Visit [place] [address] Paula Harris PA [facility] [place] [address] 01/26/2025 9:50 AM EDT Appointment Mammography/DXA at [place] [phone] Joan Deutsch, [facility] [place] [address] 01/26/2025 10:50 AM EDT Office [place] [address] Joan Deutsch, [facility] [place] [address] documented as of this encounter Visit Diagnoses Not on filedocumented in this encounter Care Teams Customs Compliance Director Relationship Specialty Start Date End Date Mariluz Watts MD [address] [place] [address] PCP - General 08/22/10 documented as of this encounter
--- OUTSIDE RECORDS SUMMARY | 2024-05-21 06:06 | XMS_ITS | Encounter Summary ---
[place] [address] Care Team Providers Care Checker Loader Name Role Phone Mariluz Watts MD Primary Care Provider [phone] Encounter Details Date Type Department Care Team [...] PM EST Office [place] [address] Paula Harris PA [facility] [place] [address] 01/26/2025 9:50 AM EDT Appointment Mammography/DXA at [place] [phone] Joan Deutsch, [facility] [place] [place] [address] 01/26/2025 10:50 AM EDT Office Visit [place] [address] Joan Deutsch, [facility] [place] [address] documented as of this encounter Visit Diagnoses Not on filedocumented in this encounter Care Teams Checker Loader Relationship Specialty Start Date End Date Mariluz Watts MD [address] [place] [address] PCP - General 08/22/10 documented as of this encounter
--- OUTSIDE RECORDS SUMMARY | 2024-05-21 06:06 | XMS_ITS | Encounter Summary ---
Author Organization [facility] [place] [address] Care Team Providers Care Breakfast Manager Name Role Phone Mariluz Watts MD Primary Care Provider [phone] Encounter Details Date Type Department Care Team (Latest Contact Info) Description 05/18/2024 2:00 PM EDT Office [place] [address] Aria Higuera MD [facility] [place] [address] AIN III (anal intraepithelial neoplasia III) Social History Tobacco Use Types Packs/Day Years Used Date Smoking Tobacco: Former Cigarettes 1 3 0 09/30/1965 - 09/30/1968 Smokeless Tobacco: Never Alcohol Use Standard Drinks/Week Comments No 0 (1 standard drink = 0.6 oz pur e alcohol) [facility] Inpatient Questions Answer Date [...] 1:44 PM EDT documented in this encounter Progress Notes * Aria Higuera MD - 05/18/2024 2:00 PM EDT Colorectal Surgery Follow-Up Visit ~ Division of Colon and Rectal Surgery ~ [facility] PCP:Mariluz Watts MD HPI: Diamond Gaming 78 y.o. seen in colorectal surgical follow-up for history of AIN. Patient's most recent surgery was March 2023 with 2 separate areas removed. The left posterior area had a history of AIN 3. The right posterior area had a history of condyloma acuminata. Patient is having no symptoms, overall feeling well. 12/12/2022 7:56 AM 11/18/2023 1:31 PM 05/17/2024 9:53 PM COREFO Responses Incontinence Scale 36.11 36.11 41.67 Social Impact Scale 27.78 22.22 22.22 Frequency Scale 12.5 0 25 Stool Releated Aspects 0 25 8.33 Medication Scale 33.33 16.67 75 Total COREFO Score 26.92 25 33.65 COREFO: 12/12/2022 7:56 AM 11/18/2023 1:31 PM 05/17/2024 9:53 PM COREFO Responses Incontinence Scale 36.11 36.11 41.67 Social Impact Scale 27.78 22.22 22.22 Frequency Scale 12.5 0 25 Stool Releated Aspects 0 25 8.33 Medication Scale 33.33 16.67 75 Total COREFO Score 26.92 25 33.65 The COREFO questionnaire is a validated questionnaire [...] GI bleeding 03/25/2011 Hypermobility syndrome Kidney disease senior care current use of opiate analgesic Motion sickness [...] after a lower gi bleed 2007 BP 109/74 (BP Location (NBP): Left arm, Patient Position: Sitting, BP Cuff Sizes: Adult (25-34 cm)) Pulse 93 Temp 36.7 ??C (98 ??F) (Temporal) Ht 165.1 cm (5' 5) Wt 84.4 kg (186 lb) SpO2 98% BMI 30.95 kg/m?? Body mass index is 30.95 kg/m??. General Appearance: well developed and well [...] with Sandy assisting. The perianal skin is healthy and intact. There is no evidence of anal fissure, [...] canal were inspected. Findings include: Small scar posterior midlineno evidence of HPV. Assessment: Diamond Gaming is a pleasant 78-year-old female with history of AIN III excised in March 2023. She had no evidence of disease on colorectal evaluation in April 2023 or October 2023. On exam today, there is no evidence of obvious skin irritation and internally no evidence of HPV. Plan: Follow-up in clinic with Nico in 6 months Colonoscopy in 1 year Aria Higuera MD, MS, FACS, FASCRS Chief, Division of Colon and Rectal Surgery [facility] Pager [phone] 05/18/2024 1:53 PM documented in this encounter Plan of Treatment Upcoming Encounters Date Type Department Care Team (Late st Contact Info) Description 11/16/2024 1:00 PM EST Office Visit General Surgery at [place] [phone] Paula Harris PA [facility] [place] [address] 01/26/2025 9:50 AM EDT Appointment Mammography/DXA at [place] [phone] Joan Deutsch [facility] [place] [address] 01/26/2025 10:50 AM EDT Office Visit General Surgery at [place] [phone] Joan Deutsch [facility] [place] [address] documented as of this encounter Visit Diagnoses Diagnosis 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
--- OUTSIDE RECORDS SUMMARY | 2024-05-21 06:06 | XMS_ITS | Encounter Summary ---
Author Organization [facility] [place] [address] Care Team Providers Care Electronic Equipment Trades Worker Name Role Phone Mariluz Watts MD Primary Care Provider [phone] Encounter Details Date Type Department Care Team (Late st Contact Info) Description 01/21/2024 10:50 AM EDT Office Visit [place] [address] Joan Deutsch APRN [facility] [place] [place] [address] Encounter for screening mammogram for breast cancer; History of breast cancer Social History Tobacco Use Types Packs/Day Years Used Date Smoking Tobacco: Former Cigarettes 1 3 0 09/30/1965 - 09/30/1968 Smokeless Tobacco: Never Alcohol Use Standard Drinks/Week Comments No 0 (1 standard drink = 0.6 oz pur e alcohol) [facility] Inpatient Questions Answer Date Recorded Does Anyone [...] this encounter Progress Notes * Joan Deutsch, DAM TENDER ASSISTANT - 01/21/2024 10:50 AM EDT Diamond is [...] carcinoma with lobular features Tumor Grade: Intermediate Tiscfq-Gdube-Yxxowuugfb Score: 7 Tubular Differentiation: 3 Mitotic Rate: [...] sentinel nodes: 2 (Specimen A - Right [place] node) No. positive for carcinoma: 1 (H&E) No. with IHC (+) cells only: 0 (cells not seen by H&E, see Note*) No. negative for carcinoma: 1 (both H&E and IHC For positive nodes: Largest kristi deposit 0.2 cm Extranodal extension Absent Estrogen/Progestin receptors: Performed on blocks C2 and C11 ER immunoreactivity: Positive (see Diagnostic hanna*) OK immunoreactivity: Positive (see Diagnostic hanna*) HER2/shonda expression [...] PM EST Office Visit [place] [phone] Paula Harris PA [facility] [place] [address] 01/26/2025 9:50 AM EDT Appointment Mammography/[place] [phone] Joan Deutsch, DAM TENDER ASSISTANT [facility] [place] [address] 01/26/2025 10:50 AM EDT Office Visit [place] [phone] Joan Deutsch, [facility] [place] [address] Scheduled Orders Name Type Priority Associated Diagnoses Orde r Schedule Mammo Screening Cad and Irvin Bilateral Imaging Routine Encounter for screening mammogram for breast cancer Expected: 01/20/2025, Expires: 07/22/2025 documented as of this encounter Visit Diagnoses Diagnosis Encounter for screening mammogram for breast cancer History of breast cancer Personal history of malignant neoplasm of breast documented in this encounter Care Teams Electronic Equipment Trades Worker Relationship Specialty Start Date End Date Mrailuz Watts MD [address] [place] [address] PCP - General 08/22/10 documented as of this encounter
--- OUTSIDE RECORDS SUMMARY | 2024-05-21 06:06 | XMS_ITS | Encounter Summary ---
[place] [address] Care Team Providers Care Health Sanitarian Name Role Phone Mariluz Watts MD Primary Care Provider [phone] Encounter Details Date Type Department Care Team [...] PM EST Office [place] [address] Paula Harris PA [facility] [place] [address] 01/26/2025 9:50 AM EDT Appointment Mammography/DXA at [place] [phone] Joan Deutsch, [facility] [place] [address] 01/26/2025 10:50 AM EDT Office [place] [address] Joan Deutsch, [facility] [place] [address] documented as of this encounter Visit Diagnoses Not on filedocumented in this encounter Care Teams Health Sanitarian Relationship Specialty Start Date End Date Mariluz Watts MD [address] [place] [address] PCP - General 08/22/10 documented as of this encounter
--- OUTSIDE RECORDS SUMMARY | 2024-05-21 06:07 | XMS_ITS | Encounter Summary ---
[place] [address] Care Team Providers Care Tar And Ammonia Pump Operator Name Role Phone Mariluz Watts MD Primary Care Provider [phone] Encounter Details Date Type Department Care Team (Late st Contact Info) Description 04/19/2023 Telephone [place] [address] Linsey Chang RN Social History Tobacco Use Types Packs/Day Years Used Date Smoking Tobacco: Former Cigarettes 1 3 0 09/30/1965 - 09/30/1968 Smokeless Tobacco: Never Alcohol Use Standard Drinks/Week Comments No 0 (1 standard drink = 0.6 oz pur e alcohol) [facility] Inpatient Questions Answer Date Recorded Does [...] Aria Higuera MD - Primary * Romaine Hnady MD - Resident - Assisting Preoperative diagnosis: [...] PM EST Office Visit General Surgery at [place] [phone] Paula Harris PA [facility] [place] [address] 01/26/2025 9:50 AM EDT Appointment Mammography/DXA at [place] [phone] Joan Deutsch, MINING [facility]PPORT [facility] [place] [address] 01/26/2025 10:50 AM EDT Office [place] [address] Joan Deutsch, MINING SUPPORT WORKER [facility] [place] [address] documented as of this encounter Visit Diagnoses Not on filedocumented in this encounter Care Teams Tar And Ammonia Pump Operator Relationship Specialty Start Date End Date Mariluz Watts MD [address] [place] [address] PCP - General 08/22/10 documented as of this encounter
--- OUTSIDE RECORDS SUMMARY | 2024-05-21 06:07 | XMS_ITS | Encounter Summary ---
Author Organization [facility] [place] [address] Care Team Providers Care Mobile Designer Name Role Phone Mariluz Watts MD Primary Care Provider [phone] Encounter Details Date Type Department Care Team (Latest Contact Info) Description 03/13/2023 11:00 AM EDT TH Visit (TeleHealth) [place] [address] Paula Harris PA [facility] [place] [address] Anal condyloma; HPV (human papilloma virus) anogenital [...] Division of Colon and Rectal Surgery ~ [facility] HPI: Diamond Gaming is a pleasant 77 [...] past. [facility] who diagnosed her with this (Dr. Villalba). She now currently sees Dr. De La Cruz.Has received preop TXA with prior orthopedic surgery. Patient has diagnosis of atrial fibrillation,saw cardiology at [facility], she is now on daily Eliquis. Review [...] hypermobility disorder. She has seen cardiology at [facility], who has recentlystarted her on chronic anticoagulation [...] for surgery on 04/16. Paula Harris PA-C, [facility] Instructor of Surgery Division of Colon and Rectal Surgery [facility] Pager [phone] 1:02 PM 03/13/23 \ documented in this encounter Plan of Treatment Upcoming Encounters Date Type Department Care Team (Late st Contact Info) Description 11/16/2024 1:00 PM EST Office Visit [place] [address] Paula Harris PA [facility] [place] [address] 01/26/2025 9:50 AM EDT Appointment Mammography/[place] [phone] Joan Deutsch [facility] [place] [address] 01/26/2025 10:50 AM EDT Office Visit [place] [address] Joan Deutsch [facility] [place] [address] documented as of this encounter Visit Diagnoses Diagnosis 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
--- OUTSIDE RECORDS SUMMARY | 2024-05-21 06:07 | XMS_ITS | Encounter Summary ---
[place] [address] Care Team Providers Care Latin Teacher Name Role Phone Mariluz Watts MD Primary Care Provider [phone] Reason for Referral * Consultation (Routine) - Closed Specialty Diagnoses / Procedures Referred By John lyons Referred To Contact General Surgery Diagnoses HPV (human papilloma virus) anogenital infection Mayur Banuelos MD [facility] [place] [address] [facility] Gen Surgery [address] [place] [address] Referral ID Status Reason Start Date Expiration Date V isits Requested Visits Authorized [id number] Closed Consult, Test & Treat 09/07/2022 09/07/2023 1 1 Encounter Details Date Type Department Care Team (Late st Contact Info) Description 09/07/2022 6:29 AM EST - 09/07/2022 9:46 AM EST Hospital Encounter [place] [address] Mayur Banuelos MD [facility] [place] [address] Atrial fibrillation, unspecified type; HPV (human papilloma [...] occurs, please contact your Doctor. Please call [phone] before 8pm Mon-Fri with problems, questions or concerns. If you call after 8pm or on weekends, call the Hospital at [phone] and ask to speak to the Mot[employer] protection specialist and the tram operator will contact that person for you. [...] any problems. Where can you learn more? [facility] View your After Visit Summary and more online at [email or web address] If you would like to provide feedback about your hospital experience, please call the Office of Patient and Family Relations at . If you have received this After Visit Summary in error, please immediately return it in person to the department, or notify the [facility] Privacy Office by calling toll free at between the hours of 8AM and 5PM to arrange for our retrieval of the documents at no cost to you. Content Version: 12.2 ?? 4513-3492 [employer]. Care instructions adapted under license by [facility]. If you have questions about a medical condition or this instruction, always ask your healthcare professional. [employer] disclaims any warranty or liability for your [...] complication. Informed Consent signed by patient (or liability claims representative). documented in this encounter Plan of Treatment Upcoming Encounters Date Type Department Care Team (Late st Contact Info) Description 11/16/2024 1:00 PM EST Office [place] [address] Paula Harris PA [facility] [place] [address] 01/26/2025 9:50 AM EDT Appointment Mammography/[place] [address] Joan Deutsch APRN [facility] [place] [address] 01/26/2025 10:50 AM EDT Office [place] [address] Joan Deutsch APRN [facility] [place] [address] Scheduled Referrals Name Type Priority Associated Diagnoses [...] 09/07/2022 8:52 AM EST Colonoscopy, Karrie Darby ([id number]) 09/07/2022 8:00 AM EST 5 yr surv from 03/26/17 COLONOSCOPY Routine 09/07/2022 7:41 AM EST documented in this encounter Results * EKG 12 Lead (09/07/2022 9:26 AM EST) Ventricular rate 86 BPM MUSE SYSTEM QRS Duration 80 ms MUSE SYSTEM Q-T Interval 368 ms MUSE SYSTEM QTC Calculated (Bezet) 440 ms MUSE SYSTEM Calculated R Oklee -54 degrees MUSE SYSTEM Calculated T Oklee 19 degrees MUSE SYSTEM INTERPRETATION Atrial fibrillation Left axis deviation Abnormal ECG When compared with ECG of 18-SEP-2018 11:55, Atrial fibrillation has replaced Sinus rhythm Nonspecific T wave abnormality now evident in Inferior leads I personally reviewed the tracing and edited the fellows interpretation Confirmed by fellow MD Francisco, Sharon ([id number]) on 09/07/2022 3:59:02 PM Confirmed by MD MACIEL ARMIN ([id number]) on 09/07/2022 5:35:52 PM MUSE SYSTEM 09/07/2022 9:26 AM EST 09/07/2022 5:35 PM EST Mayur Banuelos MD ECG ORDERABLES Performing Organization Address City/[facility]/ZIP Co de Phone Number MUSE SYSTEM * Specimen to Pathology (09/07/2022 8:54 AM EST) AP Specimen 09/07/2022 8:54 AM EST 09/07/2022 8:54 AM EST Narrative [facility] - 09/07/2022 8:54 AM EST Specimen requisition ordered. ??Separate Pathology report to follow Mayur Banuelos MD PATHOLOGY/CYTOLOG Y ORDERABLES Performing Organization Address City/[facility] Co de Phone Number [facility] [place] [address] * Specimen to Pathology (09/07/2022 8:54 AM EST) AP Specimen 09/07/2022 8:54 AM EST 09/07/2022 8:54 AM EST Narrative [facility] - 09/07/2022 8:54 AM EST Specimen requisition ordered. ??Separate Pathology report to follow Mayur Banuelos MD PATHOLOGY/CYTOLOG Y ORDERABLES Performing Organization Address City/[facility] Co de Phone Number [facility] [place] [address] * Specimen to Pathology (09/07/2022 8:54 AM EST) AP Specimen 09/07/2022 8:54 AM EST 09/07/2022 8:54 AM EST Narrative [facility] - 09/07/2022 8:54 AM EST Specimen requisition ordered. ??Separate Pathology report to follow Mayur Banuelos MD PATHOLOGY/CYTOLOG Y ORDERABLES Performing Organization Address City/[facility] Co de Phone Number [facility] [place] [address] * Surgical Pathology Report (09/07/2022 8:52 AM EST) Final Diagnosis [id number] ? Location: 4T; EA08; A The signing [...] Maxim Verified: ??09/13/2022 14:39 ??Pathologist Performed at: ??-[facility] Dept. of Pathology, [place] [address] Linux Unix Administrator: Uyen Willis MD, FCAP, ??[facility] Certificate: [id number] ADDITIONAL STUDIES Whole slide scan: A1 Immunohistochemistry [...] EST Mayur Banuelos MD PATHOLOGY/CYTOLOG Y ORDERABLES [facility] [place] [id number] [facility] [place] [address] * Specimen to Pathology (09/07/2022 8:52 AM EST) AP Specimen 09/07/2022 8:52 AM EST 09/07/2022 8:52 AM EST Narrative [facility] - 09/07/2022 8:52 AM EST Specimen requisition ordered. ??Separate Pathology report to follow Mayur Banuelos MD PATHOLOGY/CYTOLOG Y ORDERABLES [facility] [place] [address] * COLONOSCOPY (09/07/2022 7:41 AM EST) COLONOSCOPY [facility] Endoscopy Procedure Date: 09/07/2022 7:41 AM ? Patient Name: Diamond Gaming ? N: [id number] ? Date of : 1945 ? Age: 76 ? Order #: [id number] ? Instrument Name: [id number] ? Procedure: ? Colonoscopy Indications: ? High [...] preparation was evaluated ? using the BBPS ([place] Bowel ? Preparation Scale) with scores of: [...] were successfully placed (MR ? conditional). Clip saddle stitch operator: Steris 11 and 16mm. ? There was [...] RN) documented in this encounter Care Teams Latin Teacher Relationship Specialty Start Date End Date Mariluz Watts MD [address] [facility] [place] [address] PCP - General 08/22/10 documented as of this encounter
--- OUTSIDE RECORDS SUMMARY | 2024-05-21 06:07 | XMS_ITS | Encounter Summary ---
Author Organization [facility] [place] [address] Care Team Providers Care Mails Supervisor Name Role Phone Mariluz Watts MD Primary Care Provider [phone] Encounter Details Date Type Department Care Team [...] PM EST Office [place] [address] Paula Harris PA [facility] [place] [address] 01/26/2025 9:50 AM EDT Appointment Mammography/[place] [address] Joan Deutsch APRN [facility] [place] [address] 01/26/2025 10:50 AM EDT Office [place] [address] Joan Deutsch, GE [facility] [place] [address] documented as of this encounter Visit Diagnoses Not on filedocumented in this encounter Care Teams Mails Supervisor Relationship Specialty Start Date End Date Mariluz Watts MD [address] [place] [address] PCP - General 08/22/10 documented as of this encounter
--- OUTSIDE RECORDS SUMMARY | 2024-05-21 06:07 | XMS_ITS | Encounter Summary ---
Author Organization [facility] [place] [address] Care Team Providers Care Dietary Service Aide Name Role Phone Mariluz Watts MD Primary Care Provider [phone] Encounter Details Date Type Department Care Team (Late st Contact Info) Description 02/12/2023 9:20 AM EDT Office Visit Dermatology at [place] [address] [place] [address] Cornell Hernández MD [facility] [place] [address] Rosacea; Sebaceous hyperplasia of face; Telangiectasias Social [...] next visit or switching to compounded azelaic xgnh-adnfsechhldra-kqzknajpsi cream from [employer]. - Briefly discussed [...] months for rosacea []Note routed to secretary receptionist []Recall placed in scheduling system [x]Appointment scheduled at checkout Scribe attestation: Danyel Anna Schafer has performed the documentation for this encounter in the presence of and acting as a scribe for Cornell Hernández MD. I performed the above scribed service and agree with the accuracy of the documentation in this encounter. Reviewed and signed by: Cornell Hernández MD Dermatology [facility] Patient seen and evaluated with staff fuel island attendant: Gardenia Cruz MD Dermatology [facility] * Gardenia Cruz MD - [...] PM EST Office Visit [place] [address] Paula Harris PA [facility] [address] 01/26/2025 9:50 AM EDT Appointment Mammography/DXA at [place] [phone] Joan Deutsch [facility] [place] [address] 01/26/2025 10:50 AM EDT Office Visit [place] [address] Joan Deutsch, [facility] [place] [address] documented as of this encounter Visit Diagnoses Diagnosis Rosacea Sebaceous hyperplasia of face Other specified disease of sebaceous glands Telangiectasias Other and unspecified capillary diseases documented in this encounter Care Teams Dietary Service Aide Relationship Specialty Start Date End Date Mariluz Watts MD [address] [place] [address] PCP - General 08/22/10 documented as of this encounter
--- OUTSIDE RECORDS SUMMARY | 2024-05-21 06:07 | XMS_ITS | Encounter Summary ---
Author Organization [facility] [place] [address] Care Team Providers Care Peanut Butter Maker Name Role Phone Mariluz Watts MD Primary Care Provider [phone] Reason for Visit * Reason Comments Rosacea Encounter Details Date Type Department Care Team (Late st Contact Info) Description 07/08/2023 10:20 AM EDT Office Visit Dermatology at [facility] [address] [place] [address] Cornell Hernández MD [facility] [place] [address] Michaelia; Rosacea Social History Tobacco Use Types Packs/Day Years Used Date Smoking Tobacco: Former Cigarettes 1 3 0 09/30/1965 - 09/30/1968 Smokeless Tobacco: Never Alcohol Use Standard Drinks/Week Comments No 0 (1 standard drink = 0.6 oz pur e alcohol) ON LICENSE OF [facility] Inpatient Questions Answer Date Recorded [...] for Rosacea follow up []Note routed to corporate secretary []Recall placed in scheduling system [x]Appointment scheduled at checkout Scribe attestation: TIMUR Mcgowan has performed the documentation for this encounter inthe presence of and acting as a scribe for Cornell Hernández MD. I performed the above scribed service and agree with the accuracy of the documentation in this encounter. Reviewed and signed by: Cornell Hernández MD Dermatology [facility] Patient seen and evaluated with staff auto servicer: Jaquelin Gonsalves MD Dermatology [facility] * Stan Gonsalves MD - 07/08/2023 10:20 [...] them as documented. STAN GONSALVES MD Staff Reliability Manager Department of Dermatology [facility] documented in this encounter Plan of Treatment Upcoming Encounters Date Type Department Care Team (Late st Contact Info) Description 11/16/2024 1:00 PM EST Office [place] [address]-1000 Paula Harris PA [facility] [place] [address] 01/26/2025 9:50 AM EDT Appointment Mammography/[place] [address] Joan Deutsch APRN [facility] [place] [address] 01/26/2025 10:50 AM EDT Office [place] [address]-1000 Joan Deutsch APRN [facility] [place] [address] documented as of this encounter Visit Diagnoses Diagnosis Milia Sebaceous cyst Rosacea documented in this encounter Care Teams Peanut Butter Maker Relationship Specialty Start Date End Date Mariluz Watts MD [address] [place] [address] PCP - General 08/22/10 documented as of this encounter
--- OUTSIDE RECORDS SUMMARY | 2024-05-21 06:07 | XMS_ITS | Encounter Summary ---
Author Organization [facility] [place] [address] Care Team Providers Care Reference Investigator Name Role Phone Mariluz Watts MD Primary Care Provider [phone] Encounter Details Date Type Department Care Team [...] PM EST Office [place] [address] Paula Harris PA [facility] [place] [address] 01/26/2025 9:50 AM EDT Appointment Mammography/[place] [address] Joan Deutsch APRN [facility] [place] [place] [address] 01/26/2025 10:50 AM EDT Office [place] [address] Joan Deutsch, GE [facility] [place] [address] documented as of this encounter Visit Diagnoses Not on filedocumented in this encounter Care Teams Reference Investigator Relationship Specialty Start Date End Date Mariluz Watts MD [address] [place] [address] PCP - General 08/22/10 documented as of this encounter
--- OUTSIDE RECORDS SUMMARY | 2024-05-21 06:07 | XMS_ITS | Encounter Summary ---
Author Organization [facility] [place] [address] Care Team Providers Care Media Marketing Director Name Role Phone Mariluz Watts MD Primary Care Provider [phone] Encounter Details Date Type Department Care Team (Latest Contact Info) Description 04/16/2023 11:54 AM EDT - 04/16/2023 8:05 PM EDT Hospital En[place] [address] Aria Higuera MD [facility] [place] [address] Discharge Disposition: Home Social History Tobacco Use Types Packs/Day Years Used Date Smoking Tobacco: Former Cigarettes 1 3 0 09/30/1965 - 09/30/1968 Smokeless Tobacco: Never Alcohol Use Standard Drinks/Week Comments No 0 (1 standard drink = 0.6 oz pur e alcohol) [facility] Inpatient Questions Answer Date Recorded Does Anyone [...] 15 minutes 4X/day. Pain medications Please take sjml-iyt-cqaqhry pain medications for post-operative discomfort.(Please continue to [...] Center 05/20/2023 2:00 PM Aria Higuera MD [facility] SURG [facility] 07/08/2023 10:20 AM Cornell Hernández MD [facility] of Colon and Rectal Surgery, [place] [address] documented in this encounter Medications at Time [...] past. [facility] who diagnosed her with this (Dr. Villalba). She now currently sees Dr. De La Cruz.Has received preop TXA with prior orthopedic surgery. Patient has diagnosis of atrial fibrillation,saw cardiology at [facility], she is now on daily Eliquis. Stopped [...] Operative Note Patient Name: Diamond Gaming : [id number] MR#: [id number] Case Date: 04/16/2023 Surgeon: Surgeon(s) and Role: [...] LEFT posterior hpv eD-H Order Id number [id number] SPECIMEN TO PATHOLOGY hemorrhoidectomy/hpv interior RIGHT posterior [...] Higuera MD - 04/16/2023 5:34 PM EDT [facility] Operative Note Patient Name: Diamond Gaming : [id number] MR#: [id number] Case Date: 04/16/2023 Surgeon: Surgeon(s) and Role: [...] LEFT posterior hpv eD-H Order Id number [id number] SPECIMEN TO PATHOLOGY hemorrhoidectomy/hpv interior RIGHT posterior [...] PM EST Office [place] [address] Paula Harris PA [facility] [place] [address] 01/26/2025 9:50 AM EDT Appointment Mammography[place] [address] Joan Deutsch TECHNICAL REPORT WRITER [facility] [place] [address] 01/26/2025 10:50 AM EDT Office [place] [address] Joan Deutsch TECHNICAL REPORT WRITER [facility] [place] [address] documented as of this encounter Procedures Procedure Name Priority Date/Time Associated Diagnosis Comments SPECIMEN TO PATHOLOGY Routine 04/16/2023 6:01 PM EDT SURGICAL PATHOLOGY REPORT Routine 2022 5:47 PM EDT SPECIMEN TO PATHOLOGY Routine 04/16/2023 5:47 PM EDT Hemorrhoidectomy, Int/Ext, Simple ([id number]) 04/16/2023 5:07 PM EDT hemorrhoidectomy/ hpv Destruction Lesion Anus Simple Electrodesiccation ([id number]) 04/16/2023 5:07 PM EDT hemorrhoidectomy/ hpv Surg Diagnostic Exam, Anorectal ([id number]) 04/16/2023 5:07 PM EDT hemorrhoidectomy/ hpv documented in this encounter Results * Specimen to Pathology (04/16/2023 6:01 PM EDT) AP Specimen 04/16/2023 6:01 PM EDT 04/16/2023 6:01 PM EDT Narrative [facility] - 04/16/2023 6:01 PM EDT Specimen requisition ordered. ??Separate Pathology report to follow Aria Higuera MD PATHOLOGY/CYTOLOGY O RDERABLES [facility] [place] [address] * Surgical Pathology Report (04/16/2023 5:47 PM EDT) Final Diagnosis [id number] ? Location: [facility]; The signing pathologist has (i) [...] MD Verified: ??04/23/2023 16:25 ??Pathologist Performed at: ??-[facility] Dept. of Pathology, [place] [address] Triage Register Nurse: Uyen Willis MD, FCAP, ??[facility] Certificate: [id number] ADDITIONAL STUDIES Whole slide scan: A1 SPECIMEN(S) [...] vasculature. Sections/Processin g: Inked and serially sectioned. Chief Physical Therapist sections in 1 cassette labeled B1. ??vmj 04/23/2023 4:25 PM EDT [facility] ANAL STRUCTURE / Unknown 04/16/2023 5:47 PM EDT 04/16/2023 5:47 PM EDT ANAL STRUCTURE / Unknown 04/16/2023 5:47 PM EDT 04/16/2023 5:47 PM EDT Aria Higuera MD PATHOLOGY/CYTOLOGY O JOSELUIS [facility] [place] [address] [facility] [place] [address] * Specimen to Pathology (04/16/2023 5:47 PM EDT) AP Specimen 04/16/2023 5:47 PM EDT 04/16/2023 5:47 PM EDT Narrative [facility] - 04/16/2023 5:47 PM EDT Specimen requisition ordered. ??Separate Pathology report to follow Aria Higuera MD PATHOLOGY/CYTOLOGY O RDERABLES [facility] [place] [address] documented in this encounter Visit Diagnoses Not [...] RN) documented in this encounter Care Teams Media Marketing Director Relationship Specialty Start Date End Date Mariluz Watts MD [address] [place] [address] [address] [facility] [place] [address] PCP - General 08/22/10 documented as of this encounter
--- OUTSIDE RECORDS SUMMARY | 2024-05-21 06:07 | XMS_ITS | Encounter Summary ---
[place] [address] Care Team Providers Care Care Giver Name Role Phone Mariluz Watts MD Primary Care Provider Encounter Details Date Type Department Care Team (Late st Contact Info) Description 01/15/2023 2:15 PM EDT Laboratory Appointment Lab [address] [place] [phone] Social History Tobacco Use Types Packs/Day Years [...] PM EST Office [place] [phone] Paula Harris PA [facility] [place] [address] 01/26/2025 9:50 AM EDT Appointment Mammography/DXA at [place] [phone] Joan Deutsch [facility] [place] [address] 01/26/2025 10:50 AM EDT Office Visit [place] [address] Joan Deutsch, [facility] [place] [address] documented as of this encounter Visit Diagnoses Not on filedocumented in this encounter Care Teams Care Giver Relationship Specialty Start Date End Date Mariluz Watts MD [address] [place] [address] [address] [place] [address] PCP - General 08/22/10 documented as of this encounter
--- OUTSIDE RECORDS SUMMARY | 2024-05-21 06:07 | XMS_ITS | Encounter Summary ---
Author Organization [place] [address] Care Team Providers Care Bump Grader Operator Name Role Phone Mariluz Watts MD Primary Care Provider [phone] Encounter Details Date Type Department Care Team (Late st Contact Info) Description 09/07/2022 7:45 AM EST - 09/07/2022 8:30 AM EST Surgery [place] [address] Mayur Banuelos MD [facility] [place] [address] COLONOSCOPY, POLYPECTOMY, REMOVAL LESION BY SNARE (WRVU [...] occurs, please contact your Doctor. Please call [phone] before 8pm Mon-Fri with problems, questions or concerns. If you call after 8pm or on weekends, call the Hospital at [phone] and ask to speak to the Balance Wheel Motion Inspector client solutions director and the stapling machine operator will contact that person for you. When should you call for help? Call [phone] anytime you think you may need emergency [...] Summary and more online at [email or web address] If you would like to [...] cost to you. Content Version: 12.2 ?? [id number] [employer]. Care instructions adapted under license by [email or web address]. If you have questions about a medical condition or this instruction, always ask your healthcare professional. [employer] disclaims any warranty or liability for your [...] complication. Informed Consent signed by patient (or aircraft sales representative). documented in this encounter Plan of Treatment Upcoming Encounters Date Type Department Care Team (Late st Contact Info) Description 11/16/2024 1:00 PM EST Office [place] [address] Paula Harris PA [facility] [place] [address] 01/26/2025 9:50 AM EDT Appointment Mammography/[place] [address] Joan Deutsch APRN [facility] [place] [address] 01/26/2025 10:50 AM EDT Office [place] [address] Joan Deutsch APRN [facility] [place] [address] Scheduled Referrals Name Type Priority Associated Diagnoses [...] 8:52 AM EST Colonoscopy, Remv Karrie Bradley ([id number]) 09/07/2022 8:00 AM EST 5 yr surv from 03/26/17 COLONOSCOPY Routine 09/07/2022 7:41 AM EST documented in this encounter Results * EKG 12 Lead (09/07/2022 9:26 AM EST) Ventricular rate 86 BPM MUSE SYSTEM QRS Duration 80 ms MUSE SYSTEM Q-T Interval 368 ms MUSE SYSTEM QTC Calculated (Bezet) 440 ms MUSE SYSTEM Calculated R Bostwick -54 degrees MUSE SYSTEM Calculated T Bostwick 19 degrees MUSE SYSTEM INTERPRETATION Atrial fibrillation Left axis deviation Abnormal ECG When compared with ECG of 18-SEP-2018 11:55, Atrial fibrillation has replaced Sinus rhythm Nonspecific T wave abnormality now evident in Inferior leads I personally reviewed the tracing and edited the fellows interpretation Confirmed by fellow MD Francisco, Sharon ([id number]) on 09/07/2022 3:59:02 PM Confirmed by MD JANELL, PAMELA ([id number]) on 09/07/2022 5:35:52 PM MUSE SYSTEM 09/07/2022 9:26 AM EST 09/07/2022 5:35 PM EST Mayur Banuelos MD ECG ORDERABLES MUSE SYSTEM * Specimen to Pathology (09/07/2022 8:54 AM EST) AP Specimen 09/07/2022 8:54 AM EST 09/07/2022 8:54 AM EST Narrative [facility] - 09/07/2022 8:54 AM EST Specimen requisition ordered. ??Separate Pathology report to follow Mayur Banuelos MD PATHOLOGY/CYTOLOG Y ORDERABLES Performing Organization Address [facility] [place] [address] * Specimen to Pathology (09/07/2022 8:54 AM EST) AP Specimen 09/07/2022 8:54 AM EST 09/07/2022 8:54 AM EST Narrative [facility] - 09/07/2022 8:54 AM EST Specimen requisition ordered. ??Separate Pathology report to follow Mayur Banuelos MD PATHOLOGY/CYTOLOG Y ORDERABLES Performing Organization Address [facility] [place] [address] * Specimen to Pathology (09/07/2022 8:54 AM EST) AP Specimen 09/07/2022 8:54 AM EST 09/07/2022 8:54 AM EST Narrative [facility] - 09/07/2022 8:54 AM EST Specimen requisition ordered. ??Separate Pathology report to follow Mayur Banuelos MD PATHOLOGY/CYTOLOG Y ORDERABLES Performing Organization Address [facility] [place] [address] * Surgical Pathology Report (09/07/2022 8:52 AM EST) Final Diagnosis [id number] ? Location: ; EA08; A The signing [...] MD Verified: ??09/13/2022 14:39 ??Pathologist Performed at: ??-[facility] Dept. of Pathology, [place] [address] Calender Wind Up Helper: Uyen Willis MD, FCAP, ??CLIA Certificate: [id number] ADDITIONAL STUDIES Whole slide scan: A1 Immunohistochemistry [...] labeled D1. ??pps 09/13/2022 2:39 PM EST [facility] GI Biopsy 09/07/2022 8:52 AM EST 09/07/2022 8:52 AM EST GI Biopsy 09/07/2022 8:52 AM EST 09/07/2022 8:52 AM EST GI Biopsy 09/07/2022 8:52 AM EST 09/07/2022 8:52 AM EST GI Biopsy 09/07/2022 8:52 AM EST 09/07/2022 8:52 AM EST Mayur Banuelos MD PATHOLOGY/CYTOLOG Y ORDERABLES [facility] [address] [place] [address] * Specimen to Pathology (09/07/2022 8:52 AM EST) AP Specimen 09/07/2022 8:52 AM EST 09/07/2022 8:52 AM EST Narrative [facility] - 09/07/2022 8:52 AM EST Specimen requisition ordered. ??Separate Pathology report to follow Mayur Banuelos MD PATHOLOGY/CYTOLOG Y ORDERABLES [facility] [place] [address] * COLONOSCOPY (09/07/2022 7:41 AM EST) COLONOSCOPY [facility] Endoscopy Procedure Date: 09/07/2022 7:41 AM ? Patient Name: Diamond Gaming ? Date of : 1945 ? Age: 76 ? Order #: [id number] ? Instrument Name: [id number] ? Procedure: ? Colonoscopy Indications: ? High [...] preparation was evaluated ? using the BBPS (Alexandria Bowel ? Preparation Scale) with scores of: [...] were successfully placed (MR ? conditional). Clip jammer operator: Steris 11 and 16mm. ? There [...] RN) documented in this encounter Care Teams Bump Grader Operator Relationship Specialty Start Date End Date Mariluz Watts MD [address] [place] [address] PCP - General 08/22/10 documented as of this encounter
--- OUTSIDE RECORDS SUMMARY | 2024-05-21 06:07 | XMS_ITS | Encounter Summary ---
Author Organization [facility] [place] [address] Care Team Providers Care Commercial Agent Name Role Phone Mariluz Watts MD Primary Care Provider [phone] Encounter Details Date Type Department Care Team [...] PM EST Office [place] [address] Paula Harris PA [facility] [place] [address] 01/26/2025 9:50 AM EDT Appointment Mammography/[place] [address] Joan Deutsch APRN [facility] [place] [address] 01/26/2025 10:50 AM EDT Office [place] [address] Joan Deutsch, GE [facility] [place] [place] [address] documented as of this encounter Visit Diagnoses Not on filedocumented in this encounter Care Teams Commercial Agent Relationship Specialty Start Date End Date Mariluz Watts MD [address] [place] [address] PCP - General 08/22/10 documented as of this encounter
--- OUTSIDE RECORDS SUMMARY | 2024-05-21 06:07 | XMS_ITS | Encounter Summary ---
Author Organization formerly [facility] [place] [address] Care Team Providers Care Bus Trolley And Taxi Instructor Name Role Phone Mariluz Watts MD Primary Care Provider [phone] Encounter Details Date Type Department Care Team (Late st Contact Info) Description 04/16/2023 1:15 PM EDT - 04/16/2023 3:30 PM EDT Surgery [place] [address] Aria Higuera MD [facility] [place] [address] ANORECTAL EXAM, REQUIRING ANESTHESIA, DIAGNOSTIC (WRVU 1.8) [...] 15 minutes 4X/day. Pain medications Please take olqt-lhs-imykley pain medications for post-operative discomfort.(Please continue to [...] Center 05/20/2023 2:00 PM Aria Higuera MD [facility] SURG [facility] 07/08/2023 10:20 AM Cornell Hernández MD [facility] of Colon and Rectal Surgery, [place] [address] documented in this encounter Medications at Time [...] past. [facility] who diagnosed her with this (Dr. Villalba). She now currently sees Dr. De La Cruz.Has received preop TXA with prior orthopedic surgery. Patient has diagnosis of atrial fibrillation,saw cardiology at [facility], she is now on daily Eliquis. Stopped [...] Operative Note Patient Name: Diamond Gaming : [id number] MR#: [id number] Case Date: 04/16/2023 Surgeon: Surgeon(s) and Role: [...] LEFT posterior hpv eD-H Order Id number [id number] SPECIMEN TO PATHOLOGY hemorrhoidectomy/hpv interior RIGHT posterior [...] Higuera MD - 04/16/2023 5:34 PM EDT [facility] Operative Note Patient Name: Diamond Gaming : [id number] MR#: [id number] Case Date: 04/16/2023 Surgeon: Surgeon(s) and Role: [...] LEFT posterior hpv eD-H Order Id number [id number] SPECIMEN TO PATHOLOGY hemorrhoidectomy/hpv interior RIGHT posterior [...] PM EST Office [place] [address] Paula Harris PA [facility] [place] [address] 01/26/2025 9:50 AM EDT Appointment Mammography[place] [address] Joan Deutsch APRN [facility] [place] [address] 01/26/2025 10:50 AM EDT Office [place] [address] Joan Deutsch APRN [facility] [place] [address] documented as of this encounter Procedures Procedure Name Priority Date/Time Associated Diagnosis Comments SPECIMEN TO PATHOLOGY Routine 04/16/2023 6:01 PM EDT SURGICAL PATHOLOGY REPORT Routine 2022 5:47 PM EDT SPECIMEN TO PATHOLOGY Routine 04/16/2023 5:47 PM EDT Hemorrhoidectomy, Int/Ext, Simple (25455) 04/16/2023 5:07 PM EDT hemorrhoidectomy/ hpv Destruction Lesion Anus Simple Electrodesiccation (33092) 04/16/2023 5:07 PM EDT hemorrhoidectomy/ hpv Surg Diagnostic Exam, Anorectal ([id number]) 04/16/2023 5:07 PM EDT hemorrhoidectomy/ hpv documented in this encounter Results * Specimen to Pathology (04/16/2023 6:01 PM EDT) AP Specimen 04/16/2023 6:01 PM EDT 04/16/2023 6:01 PM EDT Narrative [facility] - 04/16/2023 6:01 PM EDT Specimen requisition ordered. ??Separate Pathology report to follow Aria Higuera MD PATHOLOGY/CYTOLOGY O JOSELUIS Performing Organization Address City/State/[facility] Co de Phone Number [facility] [place] [address] * Surgical Pathology Report (04/16/2023 5:47 PM EDT) Final Diagnosis [id number] ? Location: [facility]; [facility]; The signing pathologist has (i) [...] MD Verified: ??04/23/2023 16:25 ??Pathologist Performed at: ??-[facility] Dept. of Pathology, [place] [id number] Contract Designer: Uyen Willis MD, AP, ??CLIA Certificate: [id number] ADDITIONAL STUDIES Whole slide scan: A1 SPECIMEN(S) [...] vasculature. Sections/Processin g: Inked and serially sectioned. Vinyl Welder And Fabricator sections in 1 cassette labeled B1. ??vmj 04/23/2023 4:25 PM EDT [facility] ANAL STRUCTURE / Unknown 04/16/2023 5:47 PM EDT 04/16/2023 5:47 PM EDT ANAL STRUCTURE / Unknown 04/16/2023 5:47 PM EDT 04/16/2023 5:47 PM EDT Aria Higuera MD PATHOLOGY/CYTOLOGY O RDERABLES [facility] [place] [address] [facility] [place] [address] * Specimen to Pathology (04/16/2023 5:47 PM EDT) AP Specimen 04/16/2023 5:47 PM EDT 04/16/2023 5:47 PM EDT Narrative [facility] - 04/16/2023 5:47 PM EDT Specimen requisition ordered. ??Separate Pathology report to follow Aria Higuera MD PATHOLOGY/[place] [address] documented in this encounter Visit Diagnoses Not [...] RN) documented in this encounter Care Teams Bus Trolley And Taxi Instructor Relationship Specialty Start Date End Date Mariluz Watts MD [address] [facility] [address] [place] [address] PCP - General 08/22/10 documented as of this encounter
--- OUTSIDE RECORDS SUMMARY | 2024-05-21 06:07 | XMS_ITS | Encounter Summary ---
[place] [address] Care Team Providers Care Hr Receptionist Name Role Phone Mariluz Watts MD Primary [...] PM EST Office [place] [address] Paula Harris PA [facility] [place] [address] 01/26/2025 9:50 AM EDT Appointment Mammography/DXA at [place] [phone] Joan Deutsch, [facility] [place] [address] 01/26/2025 10:50 AM EDT Office [place] [address] Joan Deutsch, [facility] [place] [address] documented as of this encounter Visit Diagnoses Not on filedocumented in this encounter Care Teams Hr Receptionist Relationship Specialty Start Date End Date Mariluz Watts MD [address] [place] [address] PCP - General 08/22/10 documented as of this encounter
--- OUTSIDE RECORDS SUMMARY | 2024-05-21 06:07 | XMS_ITS | Encounter Summary ---
Author Organization [facility] [place] [address] Care Team Providers Care Flight Information Expediter Name Role Phone Mariluz Watts MD Primary Care Provider [phone] Encounter Details Date Type Department Care Team (Late st Contact Info) Description 11/15/[address] 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 I left a voicemailwith my direct callback number for Diamond to please return my call at her soonest convenience. documented in this encounter Plan of Treatment Upcoming Encounters Date Type Department Care Team (Late st Contact Info) Description 11/16/2024 1:00 PM EST Office Visit [place] [address] Paula Harris PA [facility] [place] [address] 01/26/2025 9:50 AM EDT Appointment Mammography/[place] [address] oJan Deutsch, [facility] [place] [address] 01/26/2025 10:50 AM EDT Office Visit [place] [address] Joan Deutsch [facility] [place] [address] documented as of this encounter Visit Diagnoses Not on filedocumented in this encounter Care Teams Flight Information Expediter Relationship Specialty Start Date End Date Mariluz Watts MD [address] [place] [address] PCP - General 08/22/10 documented as of this encounter
--- OUTSIDE RECORDS SUMMARY | 2024-05-21 06:07 | XMS_ITS | Encounter Summary ---
Author Organization [facility] [place] [address] Care Team Providers Care General Medical Practitioner Name Role Phone Mariluz Watts MD Primary Care Provider [phone] Reason for Visit * Reason Comments Establish Care * Consultation (Routine) - Closed Specialty Diagnoses / Procedures Referred By John lyons Referred To Contact General Surgery Diagnoses HPV (human papilloma virus) anogenital infection Mayur Banuleos MD [facility] [place] [address] [facility] Gen Surgery [address] [place] [address] Referral ID Status Reason Start Date Expiration Date V isits Requested Visits Authorized [id number] Closed Consult, Test & Treat 09/07/2022 09/07/2023 1 1 Encounter Details Date Type Department Care Team (Latest Contact Info) Description 12/12/2022 8:00 AM EDT Office [place] [address] Aria Higuera MD [facility] [place] [address] HPV (human papilloma virus) anogenital infection; Internal [...] HPV infection, as HPV is spread by qfvm-fb-pvij contact and can live in areas not [...] Division of Colon and Rectal Surgery ~ [facility] Care Team: PCP is Mariluz Watts MD. [...] She was reportedly seeing hematology here at [facility] in 2009 who diagnosed her with this. [...] urology here at as well as in [place]. She has seen a pelvic floor physical [...] atrial fibrillation. She has not seen a police artist yet, but is scheduled to see cardiology at [facility] in January. She is not [...] Hypermobility syndrome ??? Kidney disease ??? 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 [...] Procedure Date: 08/18/2006 ??? CREATED BY INTERFACE [id number] Procedure Date: 01/27/2007 ??? CREATED BY INTERFACE [...] ANTERIOR APPROACH performed by NICK ERVIN at [facility] MA[facility] OR ??? PRO BLEPHAROPLASTY UPPER EYELID W EXCESSIVE SKIN Bilateral 03/27/2019 BLEPHAROPLASTY,UPPER EYELID, WITH EXCESSIVE SKIN, ANDRES (WRVU 6.81) performed by Debbi Green MD at [facility] OSC ??? PRO COLONOSCOPY, DIAGNOSTIC 02/29/2012 COLONOSCOPY, DIAGNOSTIC performed by GALLITO KUO at [facility] ENDOSCOPY ??? PRO COLONOSCOPY, REMV LESN, SNARE N/A 03/26/2017 COLONOSCOPY, POLYPECTOMY, REMOVAL LESION BY SNARE (WRVU 4.67) performed by Gallito Kuo MD at [facility] ENDOSCOPY ??? PRO COLONOSCOPY, REMV LESN, SNARE N/A 09/07/2022 COLONOSCOPY, POLYPECTOMY, REMOVAL LESION BY SNARE (WRVU 4.67) performed by Mayur Banuelos MDat [facility] ENDOSCOPY ??? PRO CYSTO/URETERO/PYELOSCOPY W/LITHOTRIPSY Left 07/27/2015 CYSTOURETEROSCOPY, LITHOTRIPSY performed by Rosales Bowman MD at [facility] MA[facility] OR ??? PRO CYSTOSCOPY, INSERT URETERAL STENT Left 07/11/2015 CYSTO, STENT PLACEMENT performed by Jose D Chauhan III, MD at [facility] MA[facility] OR ??? PRO CYSTOSCOPY, INSERT URETERAL STENT Left 07/27/2015 CYSTO, STENT PLACEMENT performed by Rosales Bowman MD at [facility] MAIN OR ??? PRO CYSTOSCOPY, REMV CALCULUS, SIMPLE Left 07/27/2015 CYSTO, REMOVAL OF STENT, FOREIGN BODY OR CALCULUS, SIMPLE performed by Rosales Bowman MD at [facility] MAIN OR ??? PRO CYSTOURETHROSCOPY, URETER CATHETER N/A 07/11/2015 CYSTO, RETROGRADE, URETEROPYELOGRAPHY performed by Jose D Chauhan III, MD at [facility] MAIN OR ? ? PRO EXC SKIN BENIG >4CM TRUNK, ARM, LEG 03/27/2011 EXC BENIGN LESION; INDRA >4.0CM, TRUNK performed by TIRSO CHAUDHARI at [facility] MA[facility] OR ??? PRO UPPER GI ENDOSCOPY, DIAGNOSTIC N/A 11/06/2018 EGD, UPPER GI ENDOSCOPY performed by Charisma Aguayo MD at [facility] END[facility]COPY Allergies: Hymenoptera allergenic extract, Tetracycline, Tetracyclines, [...] clips were successfully placed (MR ?conditional). Clip unix administrator: Steris 11 and 16mm. ?There was no [...] She is scheduled to see a women's police artist at the [facility] in January. She is not [...] recently been following with a urologist in [place]. She has not been evaluated by urogynecology. We discussed that prior to excising condyloma, we need more clarification and clearance from her police artist, who she is going to see in [...] was able to speak with her OR production scheduler for a mutually agreeable date. We [...] EUA with biopsy/excision anal lesion; hemorrhoidectomy CPT: 75904; 40810; 23364 OR date: March 2023 Estimated LOS: SDS [...] Chief, Division of Colon and Rectal Surgery [facility] Pager [phone] documented in this encounter Plan of Treatment Upcoming Encounters Date Type Department Care Team (Late st Contact Info) Description 11/16/2024 1:00 PM EST Office [place] [address] Paula Harris PA [facility] [place] [address] 01/26/2025 9:50 AM EDT Appointment Mammography/[place] [address] Joan Deutsch, [facility] [place] [address] 01/26/2025 10:50 AM EDT Office [place] [address] Joan Deutsch, [facility] [place] [address] documented as of this encounter Visit Diagnoses [...] syndrome documented in this encounter Care Teams General Medical Practitioner Relationship Specialty Start Date End Date Mariluz Watts MD [address] [place] [address] PCP - General 08/22/10 documented as of this encounter
--- OUTSIDE RECORDS SUMMARY | 2024-05-21 06:07 | XMS_ITS | Encounter Summary ---
Author Organization [facility] [place] [address] Care Team Providers Care Demolition Worker Name Role Phone Mariluz Watts MD Primary Care Provider [phone] Encounter Details Date Type Department Care Team (Late st Contact Info) Description 04/16/2023 5:08 PM EDT Anesthesia Event [place] [address] Aide Raymundo MD [facility] [place] [address] Debbi Raza MD [facility] [place] [address] Anesthesia Record Procedure Summary Procedure Name Responsible [...] 1231; metacarpal vein (top of hand), left; gbfe-suw-sirnal catheter system; Anatomical Landmarks; US Not Used; [...] 04/16/23; Removal Time: 182104/16/23 1733 by Ora Aarujo CRNA 04/16/23 182 by Hany Piper CRNA [...] Procedure Summary Date: 04/16/23 Room / Location: [facility] OR [address] [place] [address] MAIN OR Anesthesia Start: 1707 Anesthesia Stop: 1830 Procedures: ANORECTAL EXAM, REQUIRING ANESTHESIA, DIAGNOSTIC (WRVU 1.8) (Anus) ANAL LESION DESTRUCTION, SIMPLE, ELECTRODESICCATION (WRVU 1.91) (Perineum) HEMORRHOIDECTOMY, INTERNAL & EXTERNAL, SIMPLE (WRVU 4.96) (Perineum) Diagnosis: (hemorrhoidectomy/hpv) Surgeons: Aria Higuera MD Responsible Provider: Aide Raymundo MD Anesthesia Type: general ASA Status: 3 All Anesthesia Providers: Anesthesiologist: Aide Raymundo MD; Ranjana Monson MD PRINTER MAINTAINER: Ora Araujo CRNA; Hany Piper CRNA Vitals Value Taken Time BP 129/78 04/16/23 1845 Temp Pulse Resp SpO2 93 % 04/16/23 1848 Pain Level Vitals shown include unvalidated device data. Patient Location: PACU/[facility] Level of Consciousness: Conscious but Sleepy Pain [...] bleeding 03/25/2011 Hypermobility syndrome Kidney disease senior living current use of opiate analgesic Motion sickness [...] general, with a(n) intravenous induction Please see [facility] anesthesia note from 04/05/23 in preparation for [...] found during colonoscopy, [place] [facility] [place] with MAICO Vasc score of 3, recommendation made for elequis which she is taking. Echo 10/24/2022 shows EF 55-60%m No WMA, mod dilation of LA, mild TR, mild AV sclerosis. Patient has received instruction to stop elequis 3 days prior to procedure Denies stroke, HTN, DC Pulmonary: Remote smoking history, quit 1968, .5ppd [...] PM EST Office Visit [place] [address] Paula Harris PA [facility] [place] [address] 01/26/2025 9:50 AM EDT Appointment Mammography/[place] [address] Joan Deutsch APRN [facility] [place] [address] 01/26/2025 10:50 AM EDT Office Visit [place] [address] Joan Deutsch APRN [facility] [place] [address] documented as of this encounter Visit Diagnoses [...] mg documented in this encounter Care Teams Demolition Worker Relationship Specialty Start Date End Date Mariluz Watts MD [address] [place] [address] PCP - General 08/22/10 documented as of this encounter
--- OUTSIDE RECORDS SUMMARY | 2024-05-21 06:07 | XMS_ITS | Encounter Summary ---
[place] [address] Care Team Providers Care Edge Stainer Name Role Phone Mariluz Watts MD Primary Care Provider [phone] Encounter Details Date Type Department Care Team (Late st Contact Info) Description 04/05/2023 11:00 AM EDT Office [place] [address] Social History Tobacco Use Types Packs/Day Years [...] PM EST Office Visit General Surgery at [place] [phone] Paula Harris PA [facility] [place] [address] 01/26/2025 9:50 AM EDT Appointment Mammography/DXA at [place] [phone] Joan Deutsch, SERVICE DIRECTOR [facility] [place] [address] 01/26/2025 10:50 AM EDT Office [place] [phone] Joan Deutsch, [facility] [address] documented as of this encounter Visit Diagnoses Not on filedocumented in this encounter Care Teams Edge Stainer Relationship Specialty Start Date End Date Mariluz Watts MD [address] [place] [address] [address] [facility] [address] [place] [address] PCP - General 08/22/10 documented as of this encounter
--- OUTSIDE RECORDS SUMMARY | 2024-05-21 06:07 | XMS_ITS | Encounter Summary ---
Author Organization [facility] [place] [address] Care Team Providers Care Certified Recreational Therapist Name Role Phone Mariluz Watts MD Primary Care Provider [phone] Reason for Visit * Reason Onset Date Comments Prior Authorization 07/31/2023 Ivermectin Encounter Details Date Type Department Care Team (Late st Contact Info) Description 07/31/2023 Telephone Dermatology at [facility] [address] [place] [address] Selam Lao, [facility] Prior Authorization (Ivermectin) Social History Tobacco Use [...] Date: 07/01/2023 End Date: 07/30/2024 Case/Reference #: [id number] Approval Letter will be scanned into media once received. * Telephone Encounter - Selam Lao CMA - 07/31/2023 12:40 PM EDT PA Submitted Submitted Date: Submitted Date: 07/31/2023 Medication Prior Authorization Patient: [employer] Patient : 1945 Insurance Company: [employer] Sent via: Banter! Bajwa: [id number] Physician: Cornell Hernández MD Medication Requested: ivermectin [...] PM EST Office [place] [address] Paula Harris, PA [facility] [place] [address] 01/26/2025 9:50 AM EDT Appointment Mammography/DXA at [place] [phone] Joan Deutsch, [facility] [place] [address] 01/26/2025 10:50 AM EDT Office Visit [place] [phone] Joan Deutsch, [employer] [facility] [place] [address] documented as of this encounter Visit Diagnoses Not on filedocumented in this encounter Care Teams Certified Recreational Therapist Relationship Specialty Start Date End Date Mariluz Watts MD [address] [place] [address] [address] [facility] 1 [place] [address] PCP - General 08/22/10 documented as of this encounter
--- OUTSIDE RECORDS SUMMARY | 2024-05-21 06:07 | XMS_ITS | Encounter Summary ---
Author Organization [facility] [place] [address] Care Team Providers Care Special Events Planner Name Role Phone Marilzu Watts MD Primary Care Provider [phone] Reason for Visit * Reason Comments Follow-up Encounter Details Date Type Department Care Team (Late st Contact Info) Description 01/15/2023 3:30 PM EDT Office Visit Hematology [place] [address] Abrahan Merlos MD [facility] HEMATOLOGY/[place] [address] Malignant neoplasm of right breast, stage 2 [...] on her bone density. Abrahan Merlos MD heel slicker in Hematology-Oncology documented in this encounter Plan of Treatment Upcoming Encounters Date Type Department Care Team (Late st Contact Info) Description 11/16/2024 1:00 PM EST Office Visit General Surgery at [place] [phone] Paula Harris PA [facility] [place] [address] 01/26/2025 9:50 AM EDT Appointment Mammography/DXA at [place] [phone] Joan Deutsch APRN [facility] [place] [address] 01/26/2025 10:50 AM EDT Office [place] [phone] Joan Deutsch APRN [facility] [place] [address] documented as of this encounter Visit Diagnoses Diagnosis Malignant neoplasm of right breast, stage 2 documented in this encounter Care Teams Special Events Planner Relationship Specialty Start Date End Date Mariluz Watts MD [address] [place] [address] PCP - General 08/22/10 documented as of this encounter
--- OUTSIDE RECORDS SUMMARY | 2024-05-21 06:07 | XMS_ITS | Encounter Summary ---
Author Organization [facility] [place] [address] Care Team Providers Care Installer Apprentice Name Role Phone Mariluz Watts MD Primary Care Provider [phone] Encounter Details Date Type Department Care Team [...] PM EST Office [place] [address] Paula Harris PA [facility] [place] [address] 01/26/2025 9:50 AM EDT Appointment Mammography/[place] [address] Joan Deutsch APRN [facility] [place] [address] 01/26/2025 10:50 AM EDT Office [place] [address] Joan Deutsch, GE [facility] [place] [address] documented as of this encounter Visit Diagnoses Not on filedocumented in this encounter Care Teams Installer Apprentice Relationship Specialty Start Date End Date Mariluz Watts MD [address] [place] [address] PCP - General 08/22/10 documented as of this encounter
--- OUTSIDE RECORDS SUMMARY | 2024-05-21 06:07 | XMS_ITS | Encounter Summary ---
Author Organization [facility] [place] [address] Care Team Providers Care Internet Systems Administrator Name Role Phone Mariluz Watts MD Primary Care Provider [phone] Encounter Details Date Type Department Care Team (Late st Contact Info) Description 04/05/2023 9:40 AM EDT Office Visit Dermatology at [facility] [address] [place] [address] Cornell Hernández MD [facility] [place] [address] Rosacea Social History Tobacco Use Types Packs/Day [...] next visit or switching to compounded azelaic niep-fvigsiwgfvfkq-sekiitcvpb cream from [employer]. - Briefly discussed the option of treating cosmetically with [employer]. Patient is not interested at this time. Figure 1 Photo(s) taken and charted with patient's verbal consent. Other: N/A RTC: 3 months for Rosacea follow up. []Note routed to alumnae secretary []Recall placed in scheduling system [x]Appointment scheduled at checkout Scribe attestation: TIMUR Leal has performed the documentation for this encounter in the presence of and acting as a scribe for Cornell Hernández MD. I performed the above scribed service and agree with the accuracy of the documentation in this encounter. Reviewed and signed by: Cornell Hernández MD Dermatology [facility] Patient seen and evaluated with staff associate engineer: Cande Foster MD Dermatology [facility] * Cande Foster MD - 04/05/2023 9:40 [...] physician's note. Cande Foster MD Staff Physician [facility] [place] [place]ermat[place] documented in this encounter Plan of Treatment Upcoming Encounters Date Type Department Care Team (Late st Contact Info) Description 11/16/2024 1:00 PM EST Office [place] [address] Paula Harris, PA [facility] [place] [address] 01/26/2025 9:50 AM EDT Appointment Mammography/DXA at [place] [phone] Joan Deutsch, [facility] [place] [address] 01/26/2025 10:50 AM EDT Office Visit General Surgery at [place] [phone] Joan Detusch, [facility] [place] [address] documented as of this encounter Visit Diagnoses Diagnosis Rosacea documented in this encounter Care Teams Internet Systems Administrator Relationship Specialty Start Date End Date Mariluz Watts MD [address] [place] [address] PCP - General 08/22/10 documented as of this encounter
--- OUTSIDE RECORDS SUMMARY | 2024-05-21 06:07 | XMS_ITS | Encounter Summary ---
[place] [address] Care Team Providers Care Insurance Claims Assistant Name Role Phone Mariluz Watts MD Primary Care Provider [phone] Encounter Details Date Type Department Care Team (Latest Contact Info) Description 01/15/2023 2:00 PM EDT - 01/15/2023 11:59 PM EDT Hospital Encounter Hematology [place] [address] Other osteoporosis without current pathological fracture Discharge [...] PM EST Office [place] [phone] Paula Harris PA [facility] [place] [address] 01/26/2025 9:50 AM EDT Appointment Mammography/[place] [phone] Joan Deutsch APRN [facility] [place] [address] 01/26/2025 10:50 AM EDT Office [place] [phone] Joan Deutsch APRN [facility] [place] [address] documented as of this encounter Procedures Procedure Name Priority Date/Time Associated Diagnosis Comments HC VENIPUNCTURE Routine 01/15/2023 2:20 PM EDT Other osteoporosis without current pathological fracture COMPREHENSIVE METABOLIC PANEL STAT 01/15/2023 2:20 PM EDT Other osteoporosis without current pathological fracture documented in this encounter Results * Vitamin D, 25-Hydroxy (01/15/2023 2:20 PM EDT) Vitamin D Total 25 OH 42 21 - 100 ng/mL [facility] Vit D Interp Sufficient [facility] Blood 01/15/2023 2:20 PM EDT 01/15/2023 2:23 PM EDT Narrative Resulting Agency Comment Spec In Lab Abrahan Merlos MD CHEMISTRY ORDERABLES [facility] [place] [address] * (ABNORMAL) Comprehensive metabolic panel (non-fasting) (01/15/2023 2:20 PM EDT) Glucose 100 65 - 199 mg/dL [facility] Comment:Diabetes: >=200 mg/d L plus symptoms Blood Urea Nitrogen 17 8 - 18 mg/dL [facility] Creatinine 0.78 0.70 - 1.20 mg/dL [facility] Sodium 145 135 - 145 mmol/L [facility] Potassium 4.3 3.5 - 5.0 mmol/L [facility] Comment: Please note: ??Patients with WBC >100,000 may have falsely elevated Potassium levels. ??For accurate Potassium quantification in these patients send serum separator tube (gold top) for subsequent determinations. ??Contact the Clinical Chemistry Laboratory if there are any questions. Chloride 109(H) 98 - 107 mmol/L [facility] Carbon Dioxide 26 22 - 31 mmol/L [facility] Anion Gap 10 5 - 15 mmol/L [facility] Calcium 9.9 8.5 - 10.5 mg/dL [facility] Protein, Total 6.9 6.1 - 8.0 g/dL [facility] Albumin 4.7 3.2 - 5.2 g/dL [facility] Aspartate Aminotransferase 12 0 - 30 unit/L [facility] Alanine Aminotransferase 17 0 - 30 unit/L [facility] Alkaline Phosphatase 90 35 - 105 unit/L [facility] Bilirubin, Total 0.2 0.2 - 1.3 mg/dL [facility] Est Glomerular Filtration Rate 79 >=60 mL/min/1. 73 m?? [facility] Comment: This patient's estimated GFR was [...] Merlos MD CHEMISTRY ORDERABLES Performing Organization Address City/State/[facility] Co de Phone Number [facility] [place] [address] documented in this encounter Visit Diagnoses Diagnosis Other osteoporosis without current pathological fracture documented in this encounter Care Teams Insurance Claims Assistant Relationship Specialty Start Date End Date Mariluz Watts MD [address] [place] [address] PCP - General 08/22/10 documented as of this encounter
--- OUTSIDE RECORDS SUMMARY | 2024-05-21 06:07 | XMS_ITS | Encounter Summary ---
[place] [address] Care Team Providers Care Office Clin Asst Name Role Phone Mariluz Watts MD Primary Care Provider [phone] Encounter Details Date Type Department Care Team [...] PM EST Office [place] [address] Paula Harris PA [facility] [place] [place] [address] 01/26/2025 9:50 AM EDT Appointment Mammography/DXA at [place] [phone] Joan Deutsch, [facility] [place] [address] 01/26/2025 10:50 AM EDT Office [place] [address] Joan Deutsch, [facility] [place] [address] documented as of this encounter Visit Diagnoses Not on filedocumented in this encounter Care Teams Office Clin Asst Relationship Specialty Start Date End Date Mariluz Watts MD [address] [place] [address] PCP - General 08/22/10 documented as of this encounter
--- OUTSIDE RECORDS SUMMARY | 2024-05-21 06:07 | XMS_ITS | Encounter Summary ---
Author Organization [facility] [place] [address] Care Team Providers Care Safety Instruction Police Officer Name Role Phone Mariluz Watts MD Primary Care Provider [phone] Reason for Visit * Reason Comments Follow Up Surgery Encounter Details Date Type Department Care Team (Latest Contact Info) Description 05/20/2023 2:00 PM EDT Office [place] [address] Aria Higuera MD [facility] [place] [address] AIN III (anal intraepithelial neoplasia III) Social History Tobacco Use Types Packs/Day Years Used Date Smoking Tobacco: Former Cigarettes 1 3 0 09/30/1965 - 09/30/1968 Smokeless Tobacco: Never Alcohol Use Standard Drinks/Week Comments No 0 (1 standard drink = 0.6 oz pur e alcohol) [facility] Inpatient Questions Answer Date Recorded Does [...] Division of Colon and Rectal Surgery ~ [facility] PCP:Mariluz Watts MD HPI: [employer] Gaming 77 [...] Dotson Verified: 04/23/2023 16:25 Pathologist Performed at: [place] [place], [place] [address] Art Handler: Uyen Willis MD, FCAP, CLIA Certificate: [id number] ADDITIONAL STUDIES Whole slide scan: A1 Significant past medical history Patient has complex past medical history. She reports that she was diagnosed with a variant of Marfan syndrome, hypermobility syndrome. 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 She was reportedly seeing hematology here at [facility] in 2009 who diagnosed her with [...] urology here at as well as in [place]. 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
--- OUTSIDE RECORDS SUMMARY | 2024-05-21 06:07 | XMS_ITS | Encounter Summary ---
Author Organization [facility] [place] [address] Care Team Providers Care Service Attendant Cafeteria Name Role Phone Mariluz Watts MD Primary Care Provider [phone] Reason for Visit * Reason Comments Follow-up Encounter Details Date Type Department Care Team (Late st Contact Info) Description 12/26/2021 11:30 AM EDT Office Visit Hematology [place] [address] Abrahan Merlos MD [facility] HEMATOLOGY/[place] [address] Malignant neoplasm of right breast, stage 2; [...] Her hands and fingers are weak, her pony rougher strength is poor, and she tends to [...] with her next mammograms. Abrahan Merlos MD senior mechanical project engineer in Hematology-Oncology documented in this encounter Plan of Treatment Upcoming Encounters Date Type Department Care Team (Late st Contact Info) Description 11/16/2024 1:00 PM EST Office Visit [place] [address] Paula Harris PA [facility] [place] [address] 01/26/2025 9:50 AM EDT Appointment Mammography/[place] [address] Joan Deutsch [facility] [place] [address] 01/26/2025 10:50 AM EDT Office Visit [place] [address] Joan Deutsch, [facility] [place] [address] documented as of this encounter Results * (ABNORMAL) Comprehensive metabolic panel (non-fasting) (01/15/2023 2:20 PM EDT) [facility] Signature Glucose 100 65 - 199 mg/dL [facility] Comment:Diabetes: >=200 mg/d L plus symptoms Blood Urea Nitrogen 17 8 - 18 mg/dL [facility] Creatinine 0.78 0.70 - 1.20 mg/dL [facility] Sodium 145 135 - 145 mmol/L [facility] Potassium 4.3 3.5 - 5.0 mmol/L [facility] Comment: Please note: ??Patients with WBC >100,000 may have falsely elevated Potassium levels. ??For accurate Potassium quantification in these patients send serum separator tube (gold top) for subsequent determinations. ??Contact the Clinical Chemistry Laboratory if there are any questions. Chloride 109(H) 98 - 107 mmol/L [facility] Carbon Dioxide 26 22 - 31 mmol/L [facility] Anion Gap 10 5 - 15 mmol/L [facility] Calcium 9.9 8.5 - 10.5 mg/dL [facility] Protein, Total 6.9 6.1 - 8.0 g/dL [facility] Albumin 4.7 3.2 - 5.2 g/dL [facility] Aspartate Aminotransferase 12 0 - 30 unit/L [facility] Alanine Aminotransferase 17 0 - 30 unit/L [facility] Alkaline Phosphatase 90 35 - 105 unit/L [facility] Bilirubin, Total 0.2 0.2 - 1.3 mg/dL [facility] Est Glomerular Filtration Rate 79 >=60 mL/min/1. 73 m?? [facility] Comment: This patient's estimated GFR was [...] Merlos MD CHEMISTRY ORDERABLES Performing Organization Address City/[facility]/ZIP Co de Phone Number [facility] [place] [address] * Vitamin D, 25-Hydroxy (01/15/2023 2:20 PM EDT) Vitamin D Total 25 OH 42 21 - 100 ng/mL [facility] Vit D Interp Sufficient [facility] Blood 01/15/2023 2:20 PM EDT 01/15/2023 2:23 PM EDT Narrative Resulting Agency Comment Spec In Lab Abrahan Merlos MD [place] [address] documented in this encounter Visit Diagnoses Diagnosis Malignant neoplasm of right breast, stage 2 Other osteoporosis without current pathological fracture documented in this encounter Care Teams Service Attendant Cafeteria Relationship Specialty Start Date End Date Mariluz Watts MD [address] [place] [address] PCP - General 08/22/10 documented as of this encounter
--- OUTSIDE RECORDS SUMMARY | 2024-05-21 06:07 | XMS_ITS | Encounter Summary ---
Author Organization [facility] Address [facility] [place] [address] Care Team Providers Care Data Specialist Name Role Phone Mariluz Watts MD Primary Care Provider [phone] Encounter Details Date Type Department Care Team (Late st Contact Info) Description 07/31/2023 Telephone Dermatology at [facility] [address] [place] [phone] Cornell Hernández MD [facility] [place] [address] Social History Tobacco Use Types Packs/Day Years [...] PM EST Office [place] [address] Paula Harris PA [facility] [place] [address] 01/26/2025 9:50 AM EDT Appointment Mammography/DXA at [place] [phone] Joan Deutsch APRN [facility] [place] [address] 01/26/2025 10:50 AM EDT Office Visit [place] [address] Joan Deutsch APRN [facility] [place] [address] documented as of this encounter Visit Diagnoses Not on filedocumented in this encounter Care Teams Data Specialist Relationship Specialty Start Date End Date Dobbertin, Mariluz, MD [address] [place] [address] PCP - General 08/22/10 documented as of this encounter
--- OUTSIDE RECORDS SUMMARY | 2024-05-21 06:07 | XMS_ITS | Encounter Summary ---
[place] [address] Care Team Providers Care Coating And Baking Operator Name Role Phone Mariluz Watts MD Primary Care Provider [phone] Encounter Details Date Type Department Care Team [...] PM EST Office Visit [place] [address] Paula aHrris PA [facility] [place] [address] 01/26/2025 9:50 AM EDT Appointment Mammography/DXA at [place] [phone] Joan Deutsch, [facility] [place] [place] [address] 01/26/2025 10:50 AM EDT Office Visit [place] [address] Joan Deutsch, [facility] [place] [place] [address] documented as of this encounter Visit Diagnoses Not on filedocumented in this encounter Care Teams Coating And Baking Operator Relationship Specialty Start Date End Date Mariluz Watts MD [address] [place] [address] PCP - General 08/22/10 documented as of this encounter
--- OUTSIDE RECORDS SUMMARY | 2024-05-21 06:07 | XMS_ITS | Encounter Summary ---
[place] [address] Care Team Providers Care Survey Methodologist Name Role Phone Mariluz Watts MD Primary Care Provider [phone] Encounter Details Date Type Department Care Team (Late st Contact Info) Description 12/26/2021 1:00 PM EDT Office [place] [address] Joan Deutsch APRN [facility] [place] [address] Encounter for screening mammogram for breast cancer; [...] carcinoma with lobular features Tumor Grade: Intermediate Mknpot-Oaquu-Qmjawebmzm Score: 7 Tubular Differentiation: 3 Mitotic Rate: [...] sentinel nodes: 2 (Specimen A - Right Westhoff node) No. positive for carcinoma: 1 (H&E) [...] PM EST Office [place] [address] Paula Harris PA [facility] [place] [address] 01/26/2025 9:50 AM EDT Appointment Mammography[place] [address] Joan Deutsch [facility] [place] [address] 01/26/2025 10:50 AM EDT Office [place] [address] Joan Deutsch, [facility] [place] [address] documented as of this encounter Visit Diagnoses Diagnosis Encounter for screening mammogram for breast cancer History of breast cancer Personal history of malignant neoplasm of breast documented in this encounter Care Teams Survey Methodologist Relationship Specialty Start Date End Date Mariluz Watts MD [address] [place] [address] PCP - General 08/22/10 documented as of this encounter
--- OUTSIDE RECORDS SUMMARY | 2024-05-21 06:07 | XMS_ITS | Encounter Summary ---
Author Organization [facility] [place] [address] Care Team Providers Care Audit Clerk Name Role Phone Mariluz Watts MD Primary Care Provider [phone] Reason for Visit * Reason Comments Follow-up Encounter Details Date Type Department Care Team (Latest Contact Info) Description 11/18/2023 2:00 PM EST Office [place] [address] Aria Higuera MD [facility] [place] [address] AIN III (anal intraepithelial neoplasia III); Anal [...] = 0.6 oz pur e alcohol) [facility] Inpatient Questions Answer Date Recorded Does [...] Division of Colon and Rectal Surgery ~ [facility] PCP:Mariluz Watts MD HPI: Diamond Gaming is [...] She was reportedly seeing hematology here at [facility] in 2009 who diagnosed her with this. [...] urology here at as well as in [place]. She has seen a pelvic floor physical therapist. She has been on several medications, including tolterodine. 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 Major issues addressed: #1 Reevaluation for possible reexcision in the future #2 Ongoing surveillance for AIN Plan: Agree with plans as documented Aria Higuera MD, MS, FACS, FASCRS Chief, Division of Colon and Rectal Surgery [facility] Pager [phone] 11/20/2023 8:16 AM documented in this encounter Plan of Treatment Upcoming Encounters Date Type Department Care Team (Late st Contact Info) Description 11/16/2024 1:00 PM EST Office [place] [address] Paula Harris PA [facility] [place] [address] 01/26/2025 9:50 AM EDT Appointment Mammography[place] [address] Joan Deutsch, GE [facility] [place] [address] 01/26/2025 10:50 AM EDT Office [place] [address] Joan Deutsch, GE [facility] [place] [address] documented as of this encounter Visit Diagnoses [...] urgency documented in this encounter Care Teams Audit Clerk Relationship Specialty Start Date End Date Mariluz Watts MD [address] [place] [address] PCP - General 08/22/10 documented as of this encounter
--- OUTSIDE RECORDS SUMMARY | 2024-05-21 06:07 | XMS_ITS | Encounter Summary ---
Author Organization [facility] Address [facility] [place] [address] Care Team Providers Care Adult Day Care Worker Name Role Phone Mariluz Watts MD Primary Care Provider Encounter Details Date Type Department Care Team (Late st Contact Info) Description 10/04/2023 10:40 AM EST Office Visit Dermatology at [facility] [address] [place] [address] Mirta Loaiza MD [facility] [address] [place] [address] Milia; Telangiectasias; Rosacea Social History Tobacco Use Types Packs/Day Years Used Date Smoking Tobacco: Former Cigarettes 1 3 0 09/30/1965 - 09/30/1968 Smokeless Tobacco: Never Alcohol Use Standard Drinks/Week Comments No 0 (1 standard drink = 0.6 oz pur e alcohol) [facility] Inpatient Questions Answer Date Recorded Does [...] - apply to face BID - Email: [email or web address] - Phone number: [phone] - Discussed redness is best treated with [...] 6 months for rosacea []Note routed to pellet mill operator [x]Recall placed in scheduling system []Appointment scheduled at checkout Scribe attestation: Lucia Sinha [facility] has performed the documentation for this encounter in the presence of and acting as a scribe for Mirta Loaiza MD. I performed the above scribed service and agree with the accuracy of the documentation in this encounter. Reviewed and signed by: Mirta Loaiza MD Dermatology [facility] Patient seen and evaluated with staff cake icer and packer: Cande Foster MD Dermatology [facility] * Cande Foster MD - 10/04/2023 10:40 [...] them as documented. Cande Foster MD Staff Precision Layout Worker Department of Dermatology [facility] documented in this encounter Plan of Treatment Upcoming Encounters Date Type Department Care Team (Late st Contact Info) Description 11/16/2024 1:00 PM EST Office Visit General Surgery at [place] [phone] Paula Harris PA [facility] [place] [address] 01/26/2025 9:50 AM EDT Appointment Mammography/DXA at [place] [phone] Joan Deutsch APRN [facility] [place] [address] 01/26/2025 10:50 AM EDT Office Visit [place] [address] Joan Deutsch APRN [facility] [place] [address] documented as of this encounter Visit Diagnoses Diagnosis Milia Sebaceous cyst Telangiectasias Other and unspecified capillary diseases Rosacea documented in this encounter Care Teams Adult Day Care Worker Relationship Specialty Start Date End Date Mariluz Watts MD [address] [place] [address] PCP - General 08/22/10 documented as of this encounter
--- OUTSIDE RECORDS SUMMARY | 2024-05-21 06:07 | XMS_ITS | Encounter Summary ---
[place] [address] Care Team Providers Care Video Editing Internship Name Role Phone Mariluz Watts MD Primary Care Provider [phone] Encounter Details Date Type Department Care Team [...] PM EST Office Visit [place] [address] Paula Harris PA [facility] [place] [address] 01/26/2025 9:50 AM EDT Appointment Mammography/DXA at [place] [phone] Joan Deutsch, [facility] [place] [address] 01/26/2025 10:50 AM EDT Office [place] [address] Joan Deutsch, [facility] [place] [address] documented as of this encounter Visit Diagnoses Not on filedocumented in this encounter Care Teams Video Editing Internship Relationship Specialty Start Date End Date Mariluz Watts MD [address] [place] [address] PCP - General 08/22/10 documented as of this encounter
--- OUTSIDE RECORDS SUMMARY | 2024-05-21 06:07 | XMS_ITS | Encounter Summary ---
[place] [address] Care Team Providers Care Grab Jack Worker Name Role Phone Mariluz Watts MD Primary Care Provider [phone] Encounter Details Date Type Department Care Team (Late st Contact Info) Description 08/30/2022 Telephone [place] [address] Bella Junior Social History Tobacco Use Types [...] - 08/30/2022 2:05 PM EST Diamond Gaming [id number] Diagnosis/Indication: 5 yr surv from 03/26/17 Please review patient chart to confirm if previous Endoscopy procedure was performed within [facility]. If yes, take note of Anesthesia type [...] knees 18. You must have a responsible republican who will drive you to your procedure, stay on campus for the entire duration of your procedure, and drive you home from your procedure. Who will likely be your local delivery driver for the procedure? *Please Verify the [...] PM EST Office Visit General Surgery at [address] Paula Harris PA [facility] [place] [address] 01/26/2025 9:50 AM EDT Appointment Mammography/DXA at [place] [phone] Joan Deutsch APRN [facility] [place] [address] 01/26/2025 10:50 AM EDT Office Visit General Surgery at [place] [phone] Joan Deutsch APRN [facility] [place] [address] documented as of this encounter Visit Diagnoses Not on filedocumented in this encounter Care Teams Grab Jack Worker Relationship Specialty Start Date End Date Mariluz Watts MD [address] [place], [place] [address]Y [facility] [address] [place] [address] PCP - General 08/22/10 documented as of this encounter
--- OUTSIDE RECORDS SUMMARY | 2024-05-21 06:07 | XMS_ITS | Encounter Summary ---
[place] [address] Care Team Providers Care Potato Peeling Machine Operator Name Role Phone Mariluz Watts MD Primary Care Provider [phone] Encounter Details Date Type Department Care Team (Late st Contact Info) Description 01/01/2023 Telephone [place] [address] Rayne Nicole RN Social History Tobacco Use [...] PM EST Office Visit General Surgery at [place] [phone] Paula Harris PA [facility] [place] [address] 01/26/2025 9:50 AM EDT Appointment Mammography/DXA at [place] [phone] Joan Deutsch, [facility] [place] [address] 01/26/2025 10:50 AM EDT Office Visit General Surgery at [place] [phone] Joan Deutsch, TRUCK DOCK MATERIAL MOVER [facility] [place] [address] documented as of this encounter Visit Diagnoses Not on filedocumented in this encounter Care Teams Potato Peeling Machine Operator Relationship Specialty Start Date End Date Mariluz Watts MD [address] [place] [address] [address] [facility] [address] [place] [address] PCP - General 08/22/10 documented as of this encounter
--- OUTSIDE RECORDS SUMMARY | 2024-05-21 06:07 | XMS_ITS | Encounter Summary ---
[place] [address] Care Team Providers Care Operations Supervisor 2Nd Shift Name Role Phone Mariluz Watts MD Primary Care Provider [phone] Encounter Details Date Type Department Care Team (Late st Contact Info) Description 01/15/2023 1:40 PM EDT Office [place] [address] Joan Deutsch APRN [facility] [place] [address] Encounter for screening mammogram for breast cancer; [...] carcinoma with lobular features Tumor Grade: Intermediate Wwwdww-Rujch-Smwrlwrcal Score: 7 Tubular Differentiation: 3 Mitotic Rate: [...] sentinel nodes: 2 (Specimen A - Right [place]ford node) No. positive for carcinoma: 1 (H&E) No. with IHC (+) cells only: 0 (cells not seen by H&E, see Note*) No. negative for carcinoma: 1 (both H&E and IHC For positive nodes: Largest kristi deposit 0.2 cm Extranodal extension Absent Estrogen/Progestin receptors: Performed on blocks C2 and C11 ER immunoreactivity: Positive (see Diagnostic hanna*) PA immunoreactivity: Positive (see Diagnostic hanna*) HER2/shonda expression [...] a recent colonoscopy. She is going to [place] for a consult as she does not [...] PM EST Office [place] [address] Paula Harris PA [facility] [place] [address] 01/26/2025 9:50 AM EDT Appointment Mammography/[place] [phone] Joan Deutsch APRN [facility] [place] [address] 01/26/2025 10:50 AM EDT Office [place] [address] Joan Deutsch APRN [facility] [place] [address] documented as of this encounter Results * Mammo Screening Cad and Irvin Bilateral (01/21/2024 10:07 AM EDT) [place] [employer] WORKSTATION ID [id number] DH RAD Anatomical Region Laterality Modality [...] who have questions please contact the health neonatal intensive care nurse that requested your imaging first. [...] and left breast. Stable appearance. Joan Deutsch BLURB WRITER IMG MAMMO ORDERABLE S documented in this encounter Visit Diagnoses Diagnosis Encounter for screening mammogram for breast cancer History of breast cancer Personal history of malignant neoplasm of breast Encounter for screening mammogram for breast cancer documented in this encounter Care Teams Operations Supervisor 2Nd Shift Relationship Specialty Start Date End Date Mariluz Watts MD [address] [place] [address] PCP - General 08/22/10 documented as of this encounter
--- OUTSIDE RECORDS SUMMARY | 2024-05-21 06:07 | XMS_ITS | Encounter Summary ---
[place] [address] Care Team Providers Care Chimney Sweeper Name Role Phone Mariluz Watts MD Primary Care Provider [phone] Encounter Details Date Type Department Care Team (Late st Contact Info) Description 04/24/2023 Telephone [place] [address] Karine Vaca RN Social History Tobacco Use Types Packs/Day Years Used Date Smoking Tobacco: Former Cigarettes 1 3 0 09/30/1965 - 09/30/1968 Smokeless Tobacco: Never Alcohol Use Standard Drinks/Week Comments No 0 (1 standard drink = 0.6 oz pur e alcohol) [facility] Inpatient Questions Answer Date Recorded Does Anyone [...] Operative Note Patient Name: Diamond Gaming : [id number] MR#: [id number] Case Date: 04/16/2023 Surgeon: Surgeon(s) and Role: [...] pain, prolonged nausea and vomiting, please call ([phone] during daytime and [phone] at night/weekends) and/or go to the ED [...] PM EST Office [place] [address] Paula Harris PA [facility] [place] [address] 01/26/2025 9:50 AM EDT Appointment Mammography/[place] [address] Joan Deutsch [facility] [place] [address] 01/26/2025 10:50 AM EDT Office [place] [address] Joan Deutsch [facility] [place] [address] documented as of this encounter Visit Diagnoses Not on filedocumented in this encounter Care Teams Chimney Sweeper Relationship Specialty Start Date End Date Mariluz Watts MD [address] [place] [address] PCP - General 08/22/10 documented as of this encounter
--- OUTSIDE RECORDS SUMMARY | 2024-05-21 06:07 | XMS_ITS | Encounter Summary ---
[place] [address] Care Team Providers Care Salvation Army Officer Name Role Phone Mariluz Watts MD Primary Care Provider [phone] Encounter Details Date Type Department Care Team (Late st Contact Info) Description 01/15/2023 1:09 PM EDT - 01/15/2023 1:59 PM EDT Hospital Encounter Mammography[place] [address] Mariluz Watts MD [address] [place] [address] [address] [place], [place] [address] Visit for screening mammogram Discharge Disposition: Home [...] PM EST Office [place] [address]-1000 Paula Harris PA [facility] [place] [address] 01/26/2025 9:50 AM EDT Appointment Mammography/[place] [address]-1000 Joan Deutsch APRN [facility] [place] [address] 01/26/2025 10:50 AM EDT Office [place] [address]1000 Joan Deutsch APRN [facility] [place] [address] documented as of this encounter Procedures Procedure [...] who have questions please contact the health point of care technician that requested your imaging first. ? Narrative [...] mammogram documented in this encounter Care Teams Salvation Army Officer Relationship Specialty Start Date End Date Mariluz Watts MD [address] [place] [address] PCP - General 08/22/10 documented as of this encounter
--- OUTSIDE RECORDS SUMMARY | 2024-05-21 06:07 | XMS_ITS | Encounter Summary ---
Author Organization [facility] [place] [address] Care Team Providers Care Pole Shaver Name Role Phone Mariluz Watts MD Primary Care Provider [phone] Encounter Details Date Type Department Care Team (Late st Contact Info) Description 07/11/2023 Orders Only Dermatology at [facility] [address] [place] [address] Cornell Hernández MD [facility] [place] [address] Rosacea Social History Tobacco Use Types Packs/Day [...] PM EST Office [place] [address] Paula Harris PA [facility] [place] [address] 01/26/2025 9:50 AM EDT Appointment Mammography/DXA at [place] [phone] Joan Deutsch, [facility] [place] [address] 01/26/2025 10:50 AM EDT Office [place] [address] Joan Deutsch, [facility] [place] [address] documented as of this encounter Visit Diagnoses Diagnosis Rosacea documented in this encounter Care Teams Pole Shaver Relationship Specialty Start Date End Date Mariluz Watts MD [address] [facility] [address] [place] [address] PCP - General 08/22/10 documented as of this encounter
--- OUTSIDE RECORDS SUMMARY | 2024-05-21 06:07 | XMS_ITS | Encounter Summary ---
Author Organization [facility] [place] [address] Care Team Providers Care Manager Electrical Name Role Phone Mariluz Watts MD Primary Care Provider [phone] Reason for Referral * Diagnostic Test (Routine) - Closed Specialty Diagnoses / Procedures Referred By Contac t Referred To Contact Radiology Diagnoses Osteopenia of left forearm Procedures DXA Central Spine, Hip, and/or Whole Body (Generic) Abrahan Merlos MD [facility] HEMATOLOGY/[place] [address] [facility] Rad Xray [address] [place] [address] [place] [address] Referral ID Status Reason Start Date Expiration Date V isits Requested Visits Authorized [id number] Closed Specialty Service Requested 12/22/2020 06/24/2022 1 1 Reason for Visit * Diagnostic Test (Routine) - Closed Specialty Diagnoses / Procedures Referred By Contac t Referred To Contact Radiology Diagnoses Osteopenia of left forearm Procedures DXA Central Spine, Hip, and/or Whole Body (Generic) Abrahan Merlos MD [facility] HEMATOLOGY/[place] [address] [facility] Rad Xray [address] [place] [address] [place] [address] Referral ID Status Reason Start Date Expiration Date V isits Requested Visits Authorized [id number] Closed Specialty Service Requested 12/22/2020 06/24/2022 1 1 Encounter Details Date Type Department Care Team (Latest Contact Info) Description 12/26/2021 9:19 AM EDT - 12/26/2021 11:59 PM EDT Hospital Encounter [facility]ammography[facility] [place] [address] Abrahan Merlos MD [facility] HEMATOLOGY/[place] [address] Osteopenia of left forearm Discharge [...] TABLET DAILY 90 tablet 3 07/09/2021 11/18/2023 [id number] ORAL Take 1 caplet by mouth daily. [...] daily as needed. 09/07/2022 multivit with calcium,iron,min (MALHAYXHAIMW-BE-CPRF- MINERALS ORAL) Take by mouth. 09/07/2022 acetaminophen [...] PM EST Office [place] [phone] Paula Harris PA [facility] [place] [address] 01/26/2025 9:50 AM EDT Appointment Mammography/[place] [address] Joan Deutsch APRN [facility] [place] [address] 01/26/2025 10:50 AM EDT Office [place] [address]1000 Joan Deutsch APRN [facility] [place] [address] documented as of this encounter Procedures Procedure [...] BMD measurements and plots are available in [employer] under the imaging tab. Paper copies will be sent to providers without [employer] access. If you have received this report without the data sheet and do not have access to [employer], please contact Radiology Automobile Accessories Installer at [phone] Saturday thru Saturday 8am-4pm. Thank you for letting us participate in the care of this patient. ??If you are a health care provider and have any questions regarding this report, please contact the number below. ??For patients who have questions please contact the health life care planner that requested your imaging first. ? Electronically signed by: Juan Antonio Ibarra MD, [facility] ([phone]), at 12/26/2021 12:42 PM Narrative 12/26/2021 12:42 PM EDT EXAMINATION: DXA CENTRAL SPINE, HIP, AND/OR WHOLE BODY (GENERIC) CLINICAL HISTORY: ??76 years Female 76 year old woman with osteopenia at the wrist and spine (as entered by ordering provider) TECHNIQUE: Scans were acquired at the lumbar spine and left forearm using the [employer] system. L1 and L3 were excluded from analysis due to standard deviation difference. FINDINGS: Lowest T-score at the diagnostic region of interest: T-score: -2.7, ROMÁN: One third distal radius, WHO diagnosis: osteoporosis. ......... Comparison......... Previous scan:November 2019 Total spine: Compared to the previous, 0.086 ??g/cm2 (9.9 %) increase. At [facility], least significant change for bone mineral [...] the lumbar spine and left forearm usingthe [employer] A system. L1 and L3 were excluded from analysis due tostandard deviation difference. FINDINGS: Lowest T-score at the diagnostic region of interest: T-score: -2.7, ROMÁN: One third distal radius, WHO diagnosis:osteoporosis. ......... Comparison......... Previous scan:November 2019 Total spine: Compared to the previous, 0.086 g/cm2 (9.9 %) increase. At [facility], least significant change for bonemineral density [...] BMD measurements and plots are available in [employer]under the imaging tab. Paper copies will be sent to providers without [employer] access.If you have received this report without the data sheet and do not haveaccess to [employer], please contact Radiology [facility] at [phone] Saturday thruFriday 8am-4pm. Thank you for letting us participate in the care of this patient. If youare a health care provider and have any questions regarding this report,please contact the number below. For patients who have questions please contactthe health life care planner that requested your imaging first. Electronically signed by: Juan Antonio Ibarra MD, [facility]([phone]), at 12/26/2021 12:42 PM Abrahan Merlos MD IMG DEXA ORDERABLES documented in this encounter Visit Diagnoses Diagnosis Osteopenia of left forearm documented in this encounter Care Teams Manager Electrical Relationship Specialty Start Date End Date Mariluz Watts MD [address] [place] [address] PCP - General 08/22/10 documented as of this encounter
--- OUTSIDE RECORDS SUMMARY | 2024-05-21 06:08 | XMS_ITS | Encounter Summary ---
[place] [address] Care Team Providers Care Parachute Marker Name Role Phone Mariluz Watts MD Primary Care Provider [phone] Encounter Details Date Type Department Care Team (Late st Contact Info) Description 10/04/2020 [place] [address] Emily Crowley LNA Social History Tobacco Use [...] PM EST Office Visit General Surgery at [place] [phone] Paula Harris PA [facility] [place] [address] 01/26/2025 9:50 AM EDT Appointment Mammography/DXA at [place] [phone] Joan Deutsch, [facility] [place] [address] 01/26/2025 10:50 AM EDT Office Visit General Surgery at [place] [phone] Joan Deutsch, [facility] [place] [address] documented as of this encounter Visit Diagnoses Not on filedocumented in this encounter Care Teams Parachute Marker Relationship Specialty Start Date End Date Mariluz Watts MD [address] [facility] [address] [address] [place] [address] PCP - General 08/22/10 documented as of this encounter
--- OUTSIDE RECORDS SUMMARY | 2024-05-21 06:08 | XMS_ITS | Encounter Summary ---
[place] [address] Care Team Providers Care Assistant Project Manager Name Role Phone Mariluz Watts MD Primary Care Provider [phone] Reason for Visit * Reason Comments Medication Refill Encounter Details Date Type Department Care Team (Late Contact Info) Description 07/08/2021 [place] [address] Bella Keenan MD [facility] [place] [address] Social History Tobacco Use Types Packs/Day Years [...] PM EST Office Visit General Surgery at [address] Paula Harris PA [facility] [place] [address] 01/26/2025 9:50 AM EDT Appointment Mammography[place] [address] Joan Deutsch APRN [facility] [place] [address] 01/26/2025 10:50 AM EDT Office [place] [address] Joan Deutsch, GE [facility] [place] [address] documented as of this encounter Visit Diagnoses Not on filedocumented in this encounter Care Teams Assistant Project Manager Relationship Specialty Start Date End Date Mariluz Watts MD [address] [place] [address] PCP - General 08/22/10 documented as of this encounter
--- OUTSIDE RECORDS SUMMARY | 2024-05-21 06:08 | XMS_ITS | Encounter Summary ---
[place] [address] Care Team Providers Care Production Support Developer Name Role Phone Mariluz Watts MD Primary Care Provider [phone] Encounter Details Date Type Department Care Team (Latest Contact Info) Description 12/26/2021 9:18 AM EDT Hospital Encounter Mammography/[place] [address] [facility] [place] [address] History of breast cancer; Encounter for screening [...] TABLET DAILY 90 tablet 3 07/09/2021 11/18/2023 HESTDAS-XHLSFBJCC-NYJD ORAL Take 1 caplet by mouth daily. [...] daily as needed. 09/07/2022 multivit with calcium,iron,min (KFFGCQJFXLCM-KD-YNUR- MINERALS ORAL) Take by mouth. 09/07/2022 acetaminophen [...] PM EST Office [place] [address] [facility] [place] [place] [address] 01/26/2025 9:50 AM EDT Appointment Mammography/[place] [address] Joan Deutsch, [facility] [place] [address] 01/26/2025 10:50 AM EDT Office [place] [address] Joan Deutsch, [facility] [place] [address] documented as of this encounter Procedures Procedure [...] have questions please contact the health home health care social worker that requested your imaging first. ? Electronically signed by: Gardenia Wolf MD, [facility] ([phone]), at 12/26/2021 11:07 AM Joan Deutsch CONTINUING EDUCATION SPECIALIST IMG MAMMO ORDERABLE S documented in this encounter Visit Diagnoses Diagnosis History of breast cancer Personal history of malignant neoplasm of breast Encounter for screening mammogram for breast cancer documented in this encounter Care Teams Production Support Developer Relationship Specialty Start Date End Date Mariluz Watts MD [address] [place] [address] PCP - General 08/22/10 documented as of this encounter
--- OUTSIDE RECORDS SUMMARY | 2024-05-21 06:08 | XMS_ITS | Encounter Summary ---
[place] [address] Care Team Providers Care Harness And Bag Inspector Name Role Phone Mariluz Watts MD Primary Care Provider [phone] Encounter Details Date Type Department Care Team (Latest Contact Info) Description 03/27/2019 1:45 PM EDT - 03/27/2019 3:30 PM EDT Hospital Encounter [place] [address] Debbi Green MD [facility] [place] [address] Discharge Disposition: Home Social History Tobacco Use [...] the ointment in the eye or an rygc-pjl-rggzyig artificial tear drop. Your bruising and swelling [...] Green immediately. She may be reached at [phone]: PLEASE DO NOT HESITATE TO CALL IF YOU ARE HAVING A PROBLEM!! There is always a doctor bath design sales consultant at the eye clinic. documented in this [...] daily as needed. 09/07/2022 multivit with calcium,iron,min (TYGAMELIBSPC-ND-DXRP-M INERALS ORAL) Take by mouth. 09/07/2022 omeprazole [...] Green MD - 03/27/2019 2:09 PM EDT [facility] Operative Note Patient Name: Diamond Gaming : [id number] MR#: [id number] Case Date: 03/27/2019 Surgeon: Surgeon(s) and Role: [...] PM EST Office [place] [address] Paula Harris PA [facility] [place] [address] 01/26/2025 9:50 AM EDT Appointment Mammography/[place] [address] Joan Deutsch, GE [facility] [place] [address] 01/26/2025 10:50 AM EDT Office Visit General Surgery at [facility] [place] [address] Joan Deutsch POLICE PATROL LIEUTENANT [facility] [place] [address] documented as of this encounter Procedures Procedure [...] local.) documented in this encounter Care Teams Harness And Bag Inspector Relationship Specialty Start Date End Date Mariluz Watts MD [address] [place] [address] PCP - General 08/22/10 documented as of this encounter
--- OUTSIDE RECORDS SUMMARY | 2024-05-21 06:08 | XMS_ITS | Encounter Summary ---
Author Organization [facility] [place] [address] Care Team Providers Care Printmaker Name Role Phone Mariluz Watts MD Primary Care Provider [phone] Reason for Visit * Reason Comments Skin Check Encounter Details Date Type Department Care Team (Late st Contact Info) Description 08/04/2020 11:00 AM EST Office Visit Dermatology at [facility] [address] [place] [address] Terry Min MD [facility] [address] [place] [address] Neoplasm of uncertain behavior of skin; Inflamed [...] or concerns, please call the office at [phone]. If it is after 5PM, or a holiday or weekend, please call [phone] and ask for the Dairy Management Specialist on-call. documented in this encounter Progress Notes [...] frozen with LN2. Lesion on the left sabianist that patient noticed a couple months ago. [...] daily as needed. ??? multivit with calcium,iron,min (CBFTXARRISLP-QP-OTPR-MINERALS ORAL) Take by mouth. ??? omeprazole (PRILOSEC) [...] patient's lesion of concern on the left sabianist -pt reassured -advised the pt to monitor [...] by Terry Min MD Department of Dermatology [facility] documented in this encounter Plan of Treatment Upcoming Encounters Date Type Department Care Team (Late st Contact Info) Description 11/16/2024 1:00 PM EST Office [place] [address] Paula Harris PA [facility] [place] [address] 01/26/2025 9:50 AM EDT Appointment Mammography/[place] [address] Joan Deutsch APRN [facility] [place] [address] 01/26/2025 10:50 AM EDT Office [place] [address] Joan Deutsch APRN [facility] [place] [address] documented as of this encounter Procedures Procedure Name Priority Date/Time Associated Diagnosis Comments SPECIMEN TO PATHOLOGY Routine 08/04/2020 11:16 AM EST Neoplasm of uncertain behavior of skin SURGICAL PATHOLOGY REPORT Routine 08/04/2020 11:09 AM EST documented in this encounter Results * Specimen to Pathology (08/04/2020 11:16 AM EST) AP Specimen 08/04/2020 11:1 6 AM EST 08/04/2020 3:35 PM EST Narrative [facility] - 08/04/2020 3:36 PM EST Specimen requisition ordered. ??Separate Pathology report to follow Resulting Agency Comment Spec In Lab Terry Min MD PATHOLOGY/CYTOLOGY O RDERALIANA [facility] [place] [address] * Surgical Pathology Report (08/04/2020 11:09 AM EST) Final Diagnosis [id number] ? Location: [facility] The signing pathologist has (i) examined the relevant preparation(s) for the specimen(s) and (ii) rendered or confirmed the diagnosis(es). . ?Surgical Pathology DIAGNOSIS Central upper back, skin shave biopsy: - ??Lichenoid keratosis , multiple deeper levels examined Electronically signed by: ??Mike STEINER, PhD, Afshan Verified: ??08/10/2020 ?Dermatopathol ogist Performed at: ??-[facility] Dept. of Pathology, [place], [place] SPECIMEN(S) SUBMITTED A - Central upper [...] labeled A1. ??PPS 08/10/2020 4:07 PM EST [facility] SPECIMEN FROM SKIN / Unknown 08/04/2020 11:09 AM EST 08/04/2020 11:09 AM EST Terry Min MD PATHOLOGY/CYTOLOGY O JOSELUIS [facility] [place] [address] documented in this encounter Visit Diagnoses Diagnosis Neoplasm of uncertain behavior of skin Inflamed seborrheic keratosis Multiple benign nevi Benign neoplasm of skin, site unspecified Folliculitis Other specified disease of hair and hair follicles documented in this encounter Care Teams Printmaker Relationship Specialty Start Date End Date Mariluz Watts MD [address] [facility] [place] [address] PCP - General 08/22/10 documented as of this encounter
--- OUTSIDE RECORDS SUMMARY | 2024-05-21 06:08 | XMS_ITS | Encounter Summary ---
Author Organization [facility] [place] [address] Care Team Providers Care Lang Interpreter Name Role Phone Mariluz Watts MD Primary Care Provider [phone] Reason for Referral * Diagnostic Test (Routine) - Closed Specialty Diagnoses / Procedures Referred By Contac t Referred To Contact Radiology Diagnoses Osteopenia of multiple sites Procedures DXA Central-Spine, Hip, And/Or Whole Body (Generic) Abrahan Merlos MD [facility] HEMATOLOGY/[place] [address] [facility] Rad Xray [address] [place] [address] [place] [address] Referral ID Status Reason Start Date Expiration Date V isits Requested Visits Authorized [id number] Closed Specialty Service Requested 12/26/2018 12/26/2019 1 1 Reason for Visit * Diagnostic Test (Routine) - Closed Specialty Diagnoses / Procedures Referred By Contac t Referred To Contact Radiology Diagnoses Osteopenia of multiple sites Procedures DXA Central-Spine, Hip, And/Or Whole Body (Generic) Abrahan Merlos MD [facility] HEMATOLOGY/[place] [address] [facility] Rad Xray [address] [place] [address] [place] [address] Referral ID Status Reason Start Date Expiration Date V isits Requested Visits Authorized [id number] Closed Specialty Service Requested 12/26/2018 12/26/2019 1 1 Encounter Details Date Type Department Care Team (Latest Contact Info) Description 12/11/2019 10:41 AM EDT Hospital Encounter XRay at [address] [place] [address] Abrahan Merlos MD [facility] HEMATOLOGY/[place] [address] Osteopenia of multiple sites Discharge [...] daily as needed. 09/07/2022 multivit with calcium,iron,min (UBMXLZDNUZJL-JR-GCJW-M INERALS ORAL) Take by mouth. 09/07/2022 omeprazole [...] EST Office Visit [place] [address] Paula Harris PA [facility] [place] [address] 01/26/2025 9:50 AM EDT Appointment Mammography/[place] [address] Joan Deutsch APRN [facility] [place] [address] 01/26/2025 10:50 AM EDT Office Visit [place] [address] Joan Deutsch APRN [facility] [address] documented as of this encounter Procedures Procedure [...] BMD measurements and plots are available in [employer] under the imaging tab. Paper copies will be sent to providers without E- access. If you have received this report without the data sheet and do not have access to [employer], please contact Radiology Shellfish Checker at [phone] Saturday thru Saturday 8am-4pm. Thank you for [...] baseline, 0.042 g/cm2 (4.6 %) decrease. At [facility], least significant change for bone [...] baseline, 0.042 g/cm2 (4.6 %) decrease. At [facility], least significant change for bonemineral [...] BMD measurements and plots are available in [employer] the imaging tab. Paper copies will be sent to providers without [employer] access.If you have received this report without the data sheet and do not haveaccess to [employer], please contact Radiology Shellfish Checker at [phone] Saturday thruFriday 8am-4pm. Thank you for letting us participate in the care of this patient. Forquestions regarding this report, please contact the number below. Electronically signed by: Jesusita Nazario [facility]([phone]), at 12/11/2019 11:47 AM Abrahan Merlos MD IMG DEXA ORDERABLES documented in this encounter Visit Diagnoses Diagnosis Osteopenia of multiple sites documented in this encounter Care Teams Lang Interpreter Relationship Specialty Start Date End Date Mariluz Watts MD [address] [place] [address] PCP - General 08/22/10 documented as of this encounter
--- OUTSIDE RECORDS SUMMARY | 2024-05-21 06:08 | XMS_ITS | Encounter Summary ---
Author Organization [facility] [place] [address] Care Team Providers Care Marine Fuel Dock Attendant Name Role Phone Mariluz Watts MD Primary Care Provider [phone] Reason for Referral * Diagnostic Test (Routine) - Closed Specialty Diagnoses / Procedures Referred By John lyons Referred To Contact Radiology Diagnoses Osteopenia of multiple sites Procedures DXA Central-Spine, Hip, And/Or Whole Body (Generic) Abrahan Merlos MD [facility] DR HEMATOLOGY/[place] [address] [place] [id number] Referral ID Status Reason Start Date Expiration Date V isits Requested Visits Authorized [id number] Closed Specialty Service Requested 12/26/2018 12/26/2019 1 1 Reason for Visit * Reason Comments Follow-up Encounter Details Date Type Department Care Team (Late st Contact Info) Description 12/26/2018 2:00 PM EDT Office Visit Hematology and Oncology at [place] [address] Abrahan Merlos MD [facility] DR HEMATOLOGY/[place] [address] Osteopenia of multiple sites Social History Tobacco [...] to lose weight. 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 I will see her next in followup in M 2019, and I will repeat her Dexa scan then. She knows to contact us in the interim if she has any concerns over her breast exam. Abrahan Merlos MD dulser in Hematology-Oncology documented in this encounter Plan of Treatment Upcoming Encounters Date Type Department Care Team (Late st Contact Info) Description 11/16/2024 1:00 PM EST Office Visit [place] [phone] Paula Harris PA [facility] [address] 01/26/2025 9:50 AM EDT Appointment Mammography/DXA at [place] [phone] Joan Deutsch [facility] [place] [address] 01/26/2025 10:50 AM EDT Office Visit [place] [address] Joan Deutsch [facility] [place] [address] documented as of this encounter Results * [...] BMD measurements and plots are available in niiu under the imaging tab. Paper copies will be sent to providers without E-[employer] access. If you have received this report without the data sheet and do not have access to EStoremates, please contact Radiology Associate Veterinarian at [phone] Saturday thru Saturday 8am-4pm. Thank you for letting us participate in the care of this patient. For questions regarding this report, please contact the number below. ? Electronically signed by: EMIL Gaffney [facility] ([phone]), at 12/11/2019 11:47 AM Narrative 12/11/2019 11:47 AM EDT EXAMINATION: DXA [...] baseline, 0.042 g/cm2 (4.6 %) decrease. At [facility], least significant change for bone [...] baseline, 0.042 g/cm2 (4.6 %) decrease. At [facility], least significant change for bonemineral [...] BMD measurements and plots are available in EWintermuteunder the imaging tab. Paper copies will be sent to providers without E- access.If you have received this report without the data sheet and do not haveaccess to [employer], please contact Radiology Associate Veterinarian at [phone] Saturday thruFrid 8am-4pm. Thank you for letting us participate in the care of this patient. Forquestions regarding this report, please contact the number below. Abrahan Merlos MD IMG DEXA ORDERABLES documented in this encounter Visit Diagnoses Diagnosis Osteopenia of multiple sites Osteopenia of multiple sites documented in this encounter Care Teams Marine Fuel Dock Attendant Relationship Specialty Start Date End Date Mariluz Watts MD [address] [place] [address] PCP - General 08/22/10 documented as of this encounter
--- OUTSIDE RECORDS SUMMARY | 2024-05-21 06:08 | XMS_ITS | Encounter Summary ---
[place] [address] Care Team Providers Care Insulation Board Coater Operator Name Role Phone Mariluz Watts MD Primary Care Provider [phone] Reason for Visit * Reason Comments Dermatochalasis Encounter Details Date Type Department Care Team (Latest Contact Info) Description 07/22/2019 10:50 AM EDT Office [place] [address] Debbi Green MD [facility] [place] [address] Dermatochalasis of both upper eyelids Social History [...] PM EST Office Visit General Surgery at [place] [phone] Paula Harris PA [facility] [place] [address] 01/26/2025 9:50 AM EDT Appointment Mammography/DXA at [place] [phone] Joan Deutsch APRN [facility] [place] [address] 01/26/2025 10:50 AM EDT Office Visit General Surgery at [place] [phone] Joan Deutsch APRN [facility] [place] [address] documented as of this encounter Procedures Procedure [...] eyelids documented in this encounter Care Teams Insulation Board Coater Operator Relationship Specialty Start Date End Date Mariluz Watts MD [address] [place] [address] [address] [place] [address] PCP - General 08/22/10 documented as of this encounter
--- OUTSIDE RECORDS SUMMARY | 2024-05-21 06:08 | XMS_ITS | Encounter Summary ---
Author Organization [facility] [place] [address] Care Team Providers Care Hadoop Engineer Name Role Phone Mariluz Watts MD Primary Care Provider [phone] Reason for Visit * Reason Onset Date Comments Pre Procedure Call 11/23/2019 Encounter Details Date Type Department Care Team (Late st Contact Info) Description 11/23/2019 Telephone [place] [address] Shekhar Moody MD [facility] [place] [address] Pre Procedure Call Social History Tobacco Use [...] left a message for patient to call [phone] directly and schedule surgery with Dr. moody. documented in this encounter Plan of Treatment Upcoming Encounters Date Type Department Care Team (Late st Contact Info) Description 11/16/2024 1:00 PM EST Office Visit [place] [address] Paula Harris PA [facility] [place] [address] 01/26/2025 9:50 AM EDT Appointment Mammography/DXA at [place] [phone] Joan Deutsch [facility] [place] [address] 01/26/2025 10:50 AM EDT Office Visit [place] [address] Joan Deutsch VISION IMPAIRED TEACHER [facility] [place] [address] documented as of this encounter Visit Diagnoses Not on filedocumented in this encounter Care Teams Hadoop Engineer Relationship Specialty Start Date End Date Mariluz Watts MD [address] [place] [address] PCP - General 08/22/10 documented as of this encounter
--- OUTSIDE RECORDS SUMMARY | 2024-05-21 06:08 | XMS_ITS | Encounter Summary ---
[place] [address] Care Team Providers Care Ladle Mechanic Name Role Phone Mariluz Watts MD Primary Care Provider [phone] Encounter Details Date Type Department Care Team (Late st Contact Info) Description 03/27/2019 3:07 PM EDT - 03/27/2019 4:01 PM EDT Surgery [place] [address] Debbi Green MD [facility] [place] [address] BLEPHAROPLASTY,UPPER EYELID, WITH EXCESSIVE SKIN, ANDRES (WRVU [...] the ointment in the eye or an zkbb-off-wawsmog artificial tear drop. Your bruising and swelling [...] Green immediately. She may be reached at [phone]: PLEASE DO NOT HESITATE TO CALL IF YOU ARE HAVING A PROBLEM!! There is always a doctor home school liaison officer at the eye clinic. documented in this [...] daily as needed. 09/07/2022 multivit with calcium,iron,min ([id number]-MEKR-M INERALS ORAL) Take by mouth. 09/07/2022 omeprazole [...] Green MD - 03/27/2019 2:09 PM EDT [facility] Operative Note Patient Name: Diamond Gaming : [id number] MR#: [id number] Case Date: 03/27/2019 Surgeon: Surgeon(s) and Role: [...] PM EST Office [place] [phone] Paula Harris PA [facility] [place] [address] 01/26/2025 9:50 AM EDT Appointment Mammography/[place] [phone] Joan Deutsch APRN [facility] [place] [address] 01/26/2025 10:50 AM EDT Office Visit General Surgery at [facility] [place] [address] Joan Deutsch APRN [facility] [place] [address] documented as of this encounter Procedures Procedure [...] local.) documented in this encounter Care Teams Ladle Mechanic Relationship Specialty Start Date End Date Mariluz Watts MD [address] [place], [place] [address]Y [address] [place] [address] PCP - General 08/22/10 documented as of this encounter
--- OUTSIDE RECORDS SUMMARY | 2024-05-21 06:08 | XMS_ITS | Encounter Summary ---
[place] [address] Care Team Providers Care Buoy Tender Name Role Phone Mariluz Watts MD Primary Care Provider [phone] Encounter Details Date Type Department Care Team (Late st Contact Info) Description 12/11/2019 12:40 PM EDT Office [place] [address] Joan Deutsch APRN [facility] [place] [address] History of breast cancer Social History Tobacco [...] carcinoma with lobular features Tumor Grade: Intermediate Ypvxtk-Wczfb-Iqflrkrwjq Score: 7 Tubular Differentiation: 3 Mitotic Rate: [...] sentinel nodes: 2 (Specimen A - Right Hannacroix node) No. positive for carcinoma: 1 (H&E) No. with IHC (+) cells only: 0 (cells not seen by H&E, see Note*) No. negative for carcinoma: 1 (both H&E and IHC For positive nodes: Largest kristi deposit 0.2 cm Extranodal extension Absent Estrogen/Progestin receptors: Performed on blocks C2 and C11 ER immunoreactivity: Positive (see Diagnostic hanna*) MI immunoreactivity: Positive (see Diagnostic hanna*) HER2/shonda expression [...] PM EST Office [place] [phone] Paula Harris PA [facility] [place] [address] 01/26/2025 9:50 AM EDT Appointment Mammography/[place] [phone] Kovatch, Joan L, [facility] [place] [address] 01/26/2025 10:50 AM EDT Office Visit General Surgery at [facility] [place] [address] Joan Deutsch, [facility] [place] [address] documented as of this encounter Results * [...] in the care of this patient. ? Joan Deutsch RENTAL CLERK IMG MAMMO ORDERABLE S documented in this encounter Visit Diagnoses Diagnosis History of breast cancer Personal history of malignant neoplasm of breast History of breast cancer Personal history of malignant neoplasm of breast documented in this encounter Care Teams Buoy Tender Relationship Specialty Start Date End Date Mariluz Watts MD [address] [place] [address] PCP - General 08/22/10 documented as of this encounter
--- OUTSIDE RECORDS SUMMARY | 2024-05-21 06:08 | XMS_ITS | Encounter Summary ---
Author Organization [facility] [place] [address] Care Team Providers Care Dietary Services Manager Name Role Phone Mariluz Watts MD Primary Care Provider [phone] Encounter Details Date Type Department Care Team (Latest Contact Info) Description 12/22/2020 12:47 PM EDT - 12/22/2020 11:59 PM EDT Hospital Encounter Mammography/[place] [address] Joan Deutsch, FIELD RADIO TECHNICIAN [facility] [place] [address] History of breast cancer Discharge Disposition: Home [...] Take 4 mg by mouth daily. 01/15/2023 [id number] ORAL Take 1 caplet by mouth daily. [...] daily as needed. 09/07/2022 multivit with calcium,iron,min ([id number]-SD-KPKN- MINERALS ORAL) Take by mouth. 09/07/2022 acetaminophen [...] PM EST Office [place] [address] Paula Harris PA [facility] [place] [address] 01/26/2025 9:50 AM EDT Appointment Mammography/[place] [address] Joan Deutsch APRN [facility] [place] [address] 01/26/2025 10:50 AM EDT Office [place] [phone] Joan Deutsch, FIELD RADIO TECHNICIAN [facility] [place] [place] [address] documented as of this encounter Procedures Procedure [...] care of this patient. ? Joan Deutsch FIELD RADIO TECHNICIAN IMG MAMMO ORDERABLE S documented in this encounter Visit Diagnoses Diagnosis History of breast cancer Personal history of malignant neoplasm of breast documented in this encounter Care Teams Dietary Services Manager Relationship Specialty Start Date End Date Mariluz Watts MD [address] [place] [address] PCP - General 08/22/10 documented as of this encounter
--- OUTSIDE RECORDS SUMMARY | 2024-05-21 06:08 | XMS_ITS | Encounter Summary ---
[place] [address] Care Team Providers Care It Consulting Manager Name Role Phone Mariluz Watts MD Primary Care Provider Reason for Visit * Reason Comments Post Op Encounter Details Date Type Department Care Team (Latest Contact Info) Description 04/09/2019 3:00 PM EDT Office [place] [address] Debbi Green MD [facility] [place] [address] Dermatochalasis of both upper eyelids Social History [...] EST Office Visit [place] [phone] Paula Harris PA [facility] [place] [address] 01/26/2025 9:50 AM EDT Appointment Mammography/[place] [address] Joan Deutsch [facility] GENER[place] [address] 01/26/2025 10:50 AM EDT Office Visit General Surgery at [place] [phone] Joan Deutsch MANAGER RECRUITING [facility] GENER[place] [address] documented as of this encounter Visit Diagnoses Diagnosis Dermatochalasis of both upper eyelids documented in this encounter Care Teams It Consulting Manager Relationship Specialty Start Date End Date Mariluz Watts MD [address] [place] [address] PCP - General 08/22/10 documented as of this encounter
--- OUTSIDE RECORDS SUMMARY | 2024-05-21 06:08 | XMS_ITS | Encounter Summary ---
Author Organization [facility] [place] [address] Care Team Providers Care Edge Finisher Name Role Phone Mariluz Watts MD Primary Care Provider [phone] Encounter Details Date Type Department Care Team (Late st Contact Info) Description 02/06/2021 3:00 PM EDT TH Visit (TeleHealth) [place] [address] Bella Keenan MD [facility] [place] [address] OAB (overactive bladder) Social History Tobacco Use [...] counseling, reviewing the patient's DH records in [facility] and documenting the visit on the [...] lost 60 lb in the last year MELON PACKER - No headaches or loss of consciousness. [...] hypermobility syndrome ??? GI bleeding 03/25/2011 ??? long-term current use of opiate analgesic ??? Motion [...] PM EST Office [place] [address] Paula Harris PA [facility] [place] [address] 01/26/2025 9:50 AM EDT Appointment Mammography/DXA at [place] [phone] Joan Deutsch, [facility] [place] [address] 01/26/2025 10:50 AM EDT Office Visit General Surgery at [place] [phone] Joan Deutsch, [facility] [place] [address] documented as of this encounter Visit Diagnoses Diagnosis OAB (overactive bladder) Hypertonicity of bladder documented in this encounter Care Teams Edge Finisher Relationship Specialty Start Date End Date Mariluz Watts MD [address] [place] [address] PCP - General 08/22/10 documented as of this encounter
--- OUTSIDE RECORDS SUMMARY | 2024-05-21 06:08 | XMS_ITS | Encounter Summary ---
Author Organization [facility] [place] [address] Care Team Providers Care Sash Maker Name Role Phone Mariluz Watts MD Primary Care Provider [phone] Reason for Visit * Reason Comments Follow-up Encounter Details Date Type Department Care Team (Late st Contact Info) Description 03/12/2019 9:15 AM EDT Office Visit Hematology [place] [address] Charity De La Cruz MD [facility] DR HEMATOLOGY [place] [address] Pancho Singleton MD [facility] HEMATOLOGY/[place] [address] Iron deficiency anemia, unspecified iron deficiency anemia [...] were not included. [facility] [place] [address] HEMOSTASIS FOLLOW UP DATE OF VISIT 03/12/2019 [...] her labs showed resolution of anemia and baptism of iron stores (H/H 14.2/45 and ferritin [...] daily as needed. ??? multivit with calcium,iron,min (RLRTKKGAWAMW-GY-JLFC-MINERALS ORAL) Take by mouth. ??? omeprazole (PRILOSEC) [...] OB RN - Home area -lives in [facility] with her son REVIEW OF SYSTEMS [...] as appropriate. Charity De La Cruz MD Toll Service Observer, [facility] documented in this encounter Plan of Treatment Upcoming Encounters Date Type Department Care Team (Late st Contact Info) Description 11/16/2024 1:00 PM EST Office [place] [address] Paula Harris PA [facility] [place] [address] 01/26/2025 9:50 AM EDT Appointment Mammography/[place] [address] Joan Deutsch [facility] [place] [address] 01/26/2025 10:50 AM EDT Office [place] [phone] Joan Deutsch [facility] [place] [address] documented as of this encounter Results * Ferritin (03/12/2019 9:45 AM EDT) [facility] Ferritin 83 30 - 400 ng/mL [facility] Comment: Pediatric reference ranges not verified at [facility], interpret with caution. Reference ranges for females greater than 50 years of age approach values for men, i.e., 30-400 ng/mL. Blood specimen (specimen) 03/12/2019 9:45 AM EDT 03/12/2019 9:50 AM EDT Narrative Resulting Agency Comment Spec In Lab Charity De La Cruz MD CHEMISTRY ORDERABL ES [facility] [place] [address] * Hemogram (03/12/2019 9:45 AM EDT) [facility] White Blood Cell 5.7 4.0 - 9.5 x10(3)/[facility] Red Blood Cell 5.16 4.00 - 5.21 x10(6)/[facility] Hemoglobin 14.6 11.7 - 15.5 gm/dL [facility] Hematocrit 45.8 35.7 - 45.8 % [facility] Mean Cell Volume 88.8 82.6 - 94.4 fL [facility] Mean Cell Hemoglobin 28.3 27.1 - 32.0 pg [facility] Mean Cell Hemoglobin Concentration 31.9 31.7 - 35.0 gm/dL [facility] Platelet 228 145 - 357 x10(3)/[facility] RDW Standard Deviation 44.1 37.0 - 46.0 fL [facility] RDW coefficient of variation 13.6 11.5 - 14.1 % [facility] Mean Platelet Volume 11.1 7.6 - 12.9 fL [facility] NRBC% auto 0.0 % [facility] NRBC Absolute 0.000 0.000 - 0.000 x10(3)/[facility] Blood specimen (specimen) 03/12/2019 9:45 AM EDT 03/12/2019 9:50 AM EDT Narrative Resulting Agency Comment Spec In Lab Charity De La Cruz MD HEMATOLOGY ORDERAB LES Performing Organization Address City/State/[facility] Co de Phone Number [facility] [place] [address] documented in this encounter Visit Diagnoses Diagnosis Iron deficiency anemia, unspecified iron deficiency anemia type documented in this encounter Care Teams Sash Maker Relationship Specialty Start Date End Date Mariluz Watts MD [address] [place] [address] PCP - General 08/22/10 documented as of this encounter
--- OUTSIDE RECORDS SUMMARY | 2024-05-21 06:08 | XMS_ITS | Encounter Summary ---
[place] [address] Care Team Providers Care Fire Extinguisher Sprinkler Inspector Name Role Phone Mariluz Watts MD Primary Care Provider [phone] Encounter Details Date Type Department Care Team (Latest Contact Info) Description 03/12/2019 9:29 AM EDT - 03/12/2019 11:59 PM EDT Hospital Encounter Hematology [place] [address] Iron deficiency anemia, unspecified iron deficiency anemia [...] daily as needed. 09/07/2022 multivit with calcium,iron,min ([id number]-HM-[id number]-M INERALS ORAL) Take by mouth. 09/07/2022 omeprazole [...] PM EST Office [place] [phone] Paula Harris PA [facility] [place] [address] 01/26/2025 9:50 AM EDT Appointment Mammography/[place] [address] Joan Deutsch APRN [facility] [place] [address] 01/26/2025 10:50 AM EDT Office Visit [place] [address] Joan Deutsch, GE [facility] [place] [address] documented as of this encounter Procedures Procedure Name Priority Date/Time Associated Diagnosis Comments HEMOGRAM Routine 03/12/2019 9:45 AM EDT Iron deficiency anemia, unspecified iron deficiency anemia type FERRITIN Routine 03/12/2019 9:45 AM EDT Iron deficiency anemia, unspecified iron deficiency anemia type documented in this encounter Results * Hemogram (03/12/2019 9:45 AM EDT) White Blood Cell 5.7 4.0 - 9.5 x10(3)/[facility] LABORATORY Red Blood Cell 5.16 4.00 - 5.21 x10(6)/[facility] LABORATORY Hemoglobin 14.6 11.7 - 15.5 gm/dL [facility] Hematocrit 45.8 35.7 - 45.8 % [facility] Mean Cell Volume 88.8 82.6 - 94.4 [facility] LABORATORY Mean Cell Hemoglobin 28.3 27.1 - 32.0 pg [facility] Mean Cell Hemoglobin Concentration 31.9 31.7 - 35.0 gm/dL [facility] Platelet 228 145 - 357 x10(3)/[facility] LABORATORY RDW Standard Deviation 44.1 37.0 - 46.0 [facility] LABORATORY RDW coefficient of variation 13.6 11.5 - 14.1 % [facility] Mean Platelet Volume 11.1 7.6 - 12.9 [facility] LABORATORY NRBC% auto 0.0 % [facility] NRBC Absolute 0.000 0.000 - 0.000 x10(3)/[facility] LABORATORY Blood specimen (specimen) 03/12/2019 9:45 AM EDT 03/12/2019 9:50 AM EDT Narrative Resulting Agency Comment Spec In Lab Charity De La Cruz MD HEMATOLOGY ORDERAB LES Performing Organization Address City/[facility]/ZIP Co de Phone Number [facility] [place] [address] * Ferritin (03/12/2019 9:45 AM EDT) Ferritin 83 30 - 400 ng/mL [facility] Comment: Pediatric reference ranges not verified at [facility], interpret with caution. Reference ranges for females greater than 50 years of age approach values for men, i.e., 30-400 ng/mL. Blood specimen (specimen) 03/12/2019 9:45 AM EDT 03/12/2019 9:50 AM EDT Narrative Resulting Agency Comment Spec In Lab Charity De La Cruz MD CHEMISTRY ORDERABL ES Performing Organization Address [facility] Co de Phone Number [facility] [place] [address] documented in this encounter Visit Diagnoses Diagnosis Iron deficiency anemia, unspecified iron deficiency anemia type documented in this encounter Care Teams Fire Extinguisher Sprinkler Inspector Relationship Specialty Start Date End Date Mariluz Watts MD [address] [place] [address] PCP - General 08/22/10 documented as of this encounter
--- OUTSIDE RECORDS SUMMARY | 2024-05-21 06:08 | XMS_ITS | Encounter Summary ---
[place] [address] Care Team Providers Care Research Engineer Name Role Phone Mariluz Watts MD Primary Care Provider [phone] Encounter Details Date Type Department Care Team (Late st Contact Info) Description 12/22/2020 2:20 PM EDT Office Visit [place] [address] Joan Deutsch [address]N [facility] [place] [address] History of breast cancer; Encounter for screening [...] carcinoma with lobular features Tumor Grade: Intermediate Gnyfrn-Fwwgm-Nwrqjkwawa Score: 7 Tubular Differentiation: 3 Mitotic Rate: [...] sentinel nodes: 2 (Specimen A - Right [place] node) No. positive for carcinoma: 1 (H&E) [...] PM EST Office [place] [address] Paula Harris PA [facility] [place] [address] 01/26/2025 9:50 AM EDT Appointment Mammography/[place] [address] Joan Deutsch APRN [facility] [place] [address] 01/26/2025 10:50 AM EDT Office Visit General Surgery at [facility] [place] [address] Joan Deutsch APRN [facility] [place] [address] documented as of this encounter Results * [...] who have questions please contact the health wound care specialist that requested your imaging first. ? Electronically signed by: Gardenia Wolf MD, [facility] ([phone]), at 12/26/2021 11:07 AM Joan Deutsch HEALTH INFORMATICS ADVISOR IMG MAMMO ORDERABLE S documented in this encounter Visit Diagnoses Diagnosis History of breast cancer Personal history of malignant neoplasm of breast Encounter for screening mammogram for breast cancer History of breast cancer Personal history of malignant neoplasm of breast Encounter for screening mammogram for breast cancer documented in this encounter Care Teams Research Engineer Relationship Specialty Start Date End Date Mariluz Watts MD [address] [place] [address] PCP - General 08/22/10 documented as of this encounter
--- OUTSIDE RECORDS SUMMARY | 2024-05-21 06:08 | XMS_ITS | Encounter Summary ---
[place] [address] Care Team Providers Care Brake Linings Coater Name Role Phone Mariluz Watts MD Primary Care Provider [phone] Reason for Visit * Reason Comments Follow-up discuss right foot C T scan Encounter Details Date Type Department Care Team (Late st Contact Info) Description 05/11/2019 9:00 AM EDT Office [place] [address] Shekhar Moody MD [facility] [place] [address] Arthritis of midfoot (Primary Dx) Social History [...] tear (TEARS) Drops ??? multivit with calcium,iron,min (QOOTSDWJFQVN-HU-VREA-MINERALS ORAL) ??? omeprazole (PRILOSEC) 20 mg Capsule, [...] PM EST Office [place] [address] Paula Harris PA [facility] [place] [address] 01/26/2025 9:50 AM EDT Appointment Mammography/[place] [address] Joan Deutsch MACHINE CHOCOLATE MOLDER [facility] [place] [address] 01/26/2025 10:50 AM EDT Office [place] [address] Joan Deutsch MACHINE CHOCOLATE MOLDER [facility] [place] [address] documented as of this encounter Visit Diagnoses Diagnosis Arthritis of midfoot- Primary Unspecified arthropathy, ankle and foot documented in this encounter Care Teams Brake Linings Coater Relationship Specialty Start Date End Date Mariluz Watts MD [address] [place] [address] PCP - General 08/22/10 documented as of this encounter
--- OUTSIDE RECORDS SUMMARY | 2024-05-21 06:08 | XMS_ITS | Encounter Summary ---
[place] [address] Care Team Providers Care Quality Systems Engineer Name Role Phone Mariluz Watts MD Primary Care Provider [phone] Reason for Visit * Reason Onset Date Comments Labs Only 12/02/2018 labs only Encounter Details Date Type Department Care Team (Late st Contact Info) Description 12/02/2018 Telephone Hematology [place] [address] Marlys Kolb RN Labs Only (labs only) [...] having difficulty accessing the results in her [facility] account. Pt's callback: [phone], confidential voicemail (ok to leave message with numbers for lab results) T/C to Patient: Left message on VM with labs Plan: Left message with instruction to call back with any questions documented in this encounter Plan of Treatment Upcoming Encounters Date Type Department Care Team (Late st Contact Info) Description 11/16/2024 1:00 PM EST Office [place] [phone] Paula Harris PA [facility] [place] [address] 01/26/2025 9:50 AM EDT Appointment Mammography/DXA at [place] [phone] Joan Deutsch [facility] [place] [address] 01/26/2025 10:50 AM EDT Office [place] [address] Joan Deutsch [facility] [place] [address] documented as of this encounter Visit Diagnoses Not on filedocumented in this encounter Care Teams Quality Systems Engineer Relationship Specialty Start Date End Date Mariluz Watts MD [address] [place] [address] PCP - General 08/22/10 documented as of this encounter
--- OUTSIDE RECORDS SUMMARY | 2024-05-21 06:08 | XMS_ITS | Encounter Summary ---
Author Organization [facility] [place] [address] Care Team Providers Care Sole Sewer Hand Name Role Phone Mariluz Watts MD Primary Care Provider Encounter Details Date Type Department Care Team (Late st Contact Info) Description 03/10/2019 Telephone [place] [address] Daylin Waldrop PA [facility] [place] [address] Social History Tobacco Use Types Packs/Day Years [...] PM EST Office [place] [address] Paula Harris PA [facility] [place] [address] 01/26/2025 9:50 AM EDT Appointment Mammography/DXA at [place] [phone] Joan Deutsch, WASHING TUB OPERATOR [facility] [place] [address] 01/26/2025 10:50 AM EDT Office Visit General Surgery at [place] [phone] Joan Deutsch, WASHING TUB OPERATOR [facility] [place] [address] documented as of this encounter Visit Diagnoses Not on filedocumented in this encounter Care Teams Sole Sewer Hand Relationship Specialty Start Date End Date Mariluz Watts MD [address] [place] [address] PCP - General 08/22/10 documented as of this encounter
--- OUTSIDE RECORDS SUMMARY | 2024-05-21 06:08 | XMS_ITS | Encounter Summary ---
[place] [address] Care Team Providers Care Bulb Assembler Name Role Phone Mariluz Watts MD Primary Care Provider [phone] Reason for Visit * Reason Onset Date Comments Bumped Appointment 04/06/2019 Encounter Details Date Type Department Care Team (Late st Contact Info) Description 04/06/2019 Telephone [place] [address] Shekhar Moody MD [facility] [place] [address] Bumped Appointment Social History Tobacco Use Types [...] Office Visit General Surgery at [place] [phone] Paula Harris PA [facility] [place] [address] 01/26/2025 9:50 AM EDT Appointment Mammography[place] [address] Joan Deutsch [facility] [place] [address] 01/26/2025 10:50 AM EDT Office Visit General Surgery at [place] [phone] Joan Deutsch PHARMACY ASSOCIATE [facility] [place] [address] documented as of this encounter Visit Diagnoses Not on filedocumented in this encounter Care Teams Bulb Assembler Relationship Specialty Start Date End Date Mariluz Watts MD [address] [place] [address] PCP - General 08/22/10 documented as of this encounter
--- OUTSIDE RECORDS SUMMARY | 2024-05-21 06:08 | XMS_ITS | Encounter Summary ---
Author Organization [facility] [place] [address] Care Team Providers Care Golf Course Architect Name Role Phone Mariluz Watts MD Primary Care Provider [phone] Encounter Details Date Type Department Care Team (Late st Contact Info) Description 11/13/2021 [place] [address] Bella Keenan MD [facility] [place] [address] Social History Tobacco Use Types Packs/Day Years [...] [place] - 11/13/2021 2:04 PM EST PHONE: [phone] Pt calls as she received recall letter [...] PM EST Office Visit General Surgery at [place] [phone] Paula Harris PA [facility] [place] [address] 01/26/2025 9:50 AM EDT Appointment Mammography/DXA at [place] [phone] Joan Deutsch MANGLE TENDER [facility] [place] [address] 01/26/2025 10:50 AM EDT Office Visit General Surgery at [place] [phone] Joan Deutsch MANGLE TENDER [facility] [place] [address] documented as of this encounter Visit Diagnoses Not on filedocumented in this encounter Care Teams Golf Course Architect Relationship Specialty Start Date End Date Mariluz Watts MD [address] [place] [address] PCP - General 08/22/10 documented as of this encounter
--- OUTSIDE RECORDS SUMMARY | 2024-05-21 06:08 | XMS_ITS | Encounter Summary ---
[place] [address] Care Team Providers Care Real Estate Closer Name Role Phone Mariluz Watts MD Primary Care Provider [phone] Encounter Details Date Type Department Care Team (Late st Contact Info) Description 05/26/2019 Telephone Hematology [place] [address] Laisha Grady RN Social History Tobacco Use [...] Gaming Gender (Pref): Female 73 y.o., 1945 *[phone] (Home Phone) HCA: Not Active Need Schedule Maker: Date of Encounter: May 26, 2019 T/C [...] call PT at home to advise at [phone]. Thanks for your time, Natalya documented in this encounter Plan of Treatment Upcoming Encounters Date Type Department Care Team (Late st Contact Info) Description 11/16/2024 1:00 PM EST Office [place] [phone] Paula Harris PA [facility] GENER[place] [address] 01/26/2025 9:50 AM EDT Appointment Mammography/[place] [address] Joan Deutsch APRN [facility] GENERAL [place] [address] 01/26/2025 10:50 AM EDT Office Visit [place] [phone] Joan Deutsch APRN [facility] GENER[place] [address] documented as of this encounter Visit Diagnoses Not on filedocumented in this encounter Care Teams Real Estate Closer Relationship Specialty Start Date End Date Mariluz Watts MD [address] [place] [address] PCP - General 08/22/10 documented as of this encounter
--- OUTSIDE RECORDS SUMMARY | 2024-05-21 06:08 | XMS_ITS | Encounter Summary ---
[place] [address] Care Team Providers Care Generator Operator Name Role Phone Mariluz Watts MD Primary Care Provider [phone] Encounter Details Date Type Department Care Team (Late st Contact Info) Description 12/11/2019 1:30 PM EDT Office Visit Hematology [place] [address] Abrahan Merlos MD [facility] HEMATOLOGY/[place] [address] Thumb pain, left; Malignant neoplasm of right [...] with her next mammograms. Abrahan Merlos MD personal care aide in Hematology-Oncology documented in this encounter Plan of Treatment Upcoming Encounters Date Type Department Care Team (Late st Contact Info) Description 11/16/2024 1:00 PM EST Office Visit General Surgery at [place] [phone] Paula Harris, [facility] [place] [address] 01/26/2025 9:50 AM EDT Appointment Mammography[place] [address] Joan Deutsch, GE [facility] [place] [address] 01/26/2025 10:50 AM EDT Office Visit General Surgery at [place] [phone] Joan Deutsch, GE [facility] [address] documented as of this encounter Visit Diagnoses Diagnosis Thumb pain, left Malignant neoplasm of right breast, stage 2 documented in this encounter Care Teams Generator Operator Relationship Specialty Start Date End Date Mariluz Watts MD [address] [place] [address] PCP - General 08/22/10 documented as of this encounter
--- OUTSIDE RECORDS SUMMARY | 2024-05-21 06:08 | XMS_ITS | Encounter Summary ---
Author Organization [facility] [place] [address] Care Team Providers Care Heating And Ventilating Drafter Name Role Phone Mariluz Watts MD Primary Care Provider [phone] Reason for Referral * Diagnostic Test (Routine) - Closed Specialty Diagnoses / Procedures Referred By John lyons Referred To Contact Radiology Diagnoses Osteopenia of left forearm Procedures DXA Central Spine, Hip, and/or Whole Body (Generic) Abrahan Merlos MD [facility] DR HEMATOLOGY/[place] [address] [facility] Rad Xray [address] [place] [address] [place] [address] Referral ID Status Reason Start Date Expiration Date V isits Requested Visits Authorized [id number] Closed Specialty Service Requested 12/22/2020 06/24/2022 1 1 Reason for Visit * Reason Comments Follow-up Encounter Details Date Type Department Care Team (Late st Contact Info) Description 12/22/2020 3:00 PM EDT Office Visit Hematology and Oncology at [facility] [place] [address] Abrahan Merlos MD [facility] HEMATOLOGY/[place] [address] Lydia Ceja DO [facility] HEMATOLOGY/[place] [address] Malignant neoplasm of right breast, stage 2; [...] vesicare. She is also seeing PT at [facility] and that is also helping. She takes [...] Lydia Ceja, Fellow, Hematology and Medical Oncology [facility] [place] [facility] Pager: [phone], 12/21/20, 1:59 PM Heme-Onc Staff ?? I [...] has any concerns. ?? Abrahan Merlos MD area mechanic in Hematology-Oncology documented in this encounter Plan of Treatment Upcoming Encounters Date Type Department Care Team (Late st Contact Info) Description 11/16/2024 1:00 PM EST Office [place] [phone] Paula Harris PA [facility] [place] [address] 01/26/2025 9:50 AM EDT Appointment Mammography[place] [address] Joan Deutsch APRN [facility] [place] [address] 01/26/2025 10:50 AM EDT Office [place] [address] Joan Deutsch APRN [facility] [address] documented as of this encounter Results * [...] BMD measurements and plots are available in [employer] under the imaging tab. Paper copies will be sent to providers without E- access. If you have received this report without the data sheet and do not have access to [employer], please contact Radiology [facility] at [phone] Saturday thru Saturday 8am-4pm. Thank you for letting us participate in the care of this patient. ??If you are a health care provider and have any questions regarding this report, please contact the number below. ??For patients who have questions please contact the health critical care educator that requested your imaging first. ? Electronically signed by: Juan Antonio Ibarra MD, [facility] ([phone]), at 12/26/2021 12:42 PM Narrative 12/26/2021 12:42 PM EDT EXAMINATION: DXA CENTRAL SPINE, HIP, AND/OR WHOLE BODY (GENERIC) CLINICAL HISTORY: ??76 years Female 76 year old woman with osteopenia at the wrist and spine (as entered by ordering provider) TECHNIQUE: Scans were acquired at the lumbar spine and left forearm using the Bellabox A system. L1 and L3 were excluded from analysis due to standard deviation difference. FINDINGS: Lowest T-score at the diagnostic region of interest: T-score: -2.7, ROMÁN: One third distal radius, WHO diagnosis: osteoporosis. ......... Comparison......... Previous scan:November 2019 Total spine: Compared to the previous, 0.086 ??g/cm2 (9.9 %) increase. At [facility], least significant change for bone mineral density [...] the lumbar spine and left forearm usingthe Bellabox A system. L1 and L3 were excluded from analysis due tostandard deviation difference. FINDINGS: Lowest T-score at the diagnostic region of interest: T-score: -2.7, ROMÁN: One third distal radius, WHO diagnosis:osteoporosis. ......... Comparison......... Previous scan:November 2019 Total spine: Compared to the previous, 0.086 g/cm2 (9.9 %) increase. At [facility], least significant change for bonemineral density measurements [...] BMD measurements and plots are available in EElement Robotunder the imaging tab. Paper copies will be sent to providers without Factor 14 access.If you have received this report without the data sheet and do not haveaccess to Factor 14, please contact Radiology [facility] at [phone] Saturday thruFriday 8am-4pm. Thank you for letting us participate in the care of this patient. If youare a health care provider and have any questions regarding this report,please contact the number below. For patients who have questions please contactthe health critical care educator that requested your imaging first. Electronically signed by: Juan Antonio Ibarra MD, [facility]([phone]), at 12/26/2021 12:42 PM Abrahan Merlos MD IMG DEXA ORDERABLES documented in this encounter Visit Diagnoses Diagnosis Malignant neoplasm of right breast, stage 2 Osteopenia of left forearm Osteopenia of left forearm documented in this encounter Care Teams Heating And Ventilating Drafter Relationship Specialty Start Date End Date Mariluz Watts MD [address] [place] [address] PCP - General 08/22/10 documented as of this encounter
--- OUTSIDE RECORDS SUMMARY | 2024-05-21 06:08 | XMS_ITS | Encounter Summary ---
Author Organization [facility] Address [facility] [place] [address] Care Team Providers Care Procedural Nurse Name Role Phone Mariluz Watts MD Primary Care Provider [phone] Reason for Referral * Physical Therapy (Routine) - Closed Specialty Diagnoses / Procedures Referred By Contanthony t Referred To Contact Physical Therapy Diagnoses OAB (overactive bladder) Bella Keenan MD [facility] [place] [address] [facility] Pt Rehab [address] [place] [address] Referral ID Status Reason Start Date Expiration Date V isits Requested Visits Authorized [id number] Closed Evaluate and Treat 10/11/2020 10/11/2021 12 12 Reason for Visit * Consultation (Routine) - Closed Specialty Diagnoses / Procedures Referred By Contac t Referred To Contact Urology Diagnoses Other specified disorders of bladder BLADDER IRRITABILITY *Female Provider* Mariluz Watts MD [address] [place] [address] [address] [place] [address] [facility] [place] [address] Referral ID Status Reason Start Date Expiration Date V isits Requested Visits Authorized [id number] Closed Consult, Test & Treat 07/29/2020 07/29/2021 1 1 Encounter Details Date Type Department Care Team (Late st Contact Info) Description 10/11/2020 3:40 PM EST [place] [address] Bella Keenan MD [facility] [place] [address] OAB (overactive bladder) Social History [...] more information on better bladder control visit: [email or web address] People with overactive bladder [...] the full effects of your efforts. The [facility] Overactive Bladder Pathway is supported by educational [...] lost 60 lb in the last year PRECISION ASSEMBLER BENCH - No headaches or loss of consciousness. [...] hypermobility syndrome ??? GI bleeding 03/25/2011 ??? 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 Motion [...] PM EST Office [place] [address] Paula Harris, PA [facility] [place] [address] 01/26/2025 9:50 AM EDT Appointment Mammography/DXA at [place] [phone] Joan Deutsch, [facility] [place] [place] [address] 01/26/2025 10:50 AM EDT Office [place] [address] Jaon Deutsch, TANKAGE GRINDER [facility] [place] [address] Scheduled Referrals Name Type Priority Associated Diagnoses Orde r Schedule Referral to Physical Therapy Outpatient Referral Routine OAB (overactive bladder) Ordered: 10/11/2020 documented as of this encounter Visit Diagnoses Diagnosis OAB (overactive bladder) Hypertonicity of bladder documented in this encounter Care Teams Procedural Nurse Relationship Specialty Start Date End Date Mariluz Watts MD [address] [place] [address] PCP - General 08/22/10 documented as of this encounter
--- OUTSIDE RECORDS SUMMARY | 2024-05-21 06:08 | XMS_ITS | Encounter Summary ---
Author Organization [facility] [place] [address] Care Team Providers Care Resource Recovery Engineer Name Role Phone Mariluz Watts MD Primary Care Provider [phone] Encounter Details Date Type Department Care Team (Late st Contact Info) Description 03/27/2019 2:22 PM EDT Anesthesia Event [place] [address] Francisco Javier Britt MD [facility] [place] [address] Stoney Gatica MD [facility] [place] [address] Anesthesia Record Procedure Summary Procedure Name Responsible [...] 1419; metacarpal vein (top of hand), left; ygnb-ruk-xskzpu catheter system; 20 gauge, 1 in length; Shaila Espinosa ALLERGY PHYSICIAN; intradermal injection; 03/27/19; 1520 03/27/19 1419 by [...] Procedure Summary Date: 03/27/19 Room / Location: [address] Anesthesia Start: 1422 Anesthesia Stop: 1500 Procedure: BLEPHAROPLASTY,UPPER EYELID, WITH EXCESSIVE SKIN, ANDRES (WRVU 6.81) (Bilateral Face) Diagnosis: Dermatochalasis of both upper eyelids (visually significant dermatochalasis, bilateral upper eyelids) Surgeon: Debbi Green MD Responsible Provider: Francisco Javier Britt MD Anesthesia Type: MAC ASA Status: 2 All Anesthesia Providers: Anesthesiologist: Francisco Javier Britt MD ALLERGY PHYSICIAN: Shaila Espinosa CRNA Vitals Value Taken Time BP 137/77 03/27/2019 3:15 PM Temp Pulse 74 03/27/2019 3:16 PM Resp 16 03/27/2019 3:03 PM SpO2 98 % 03/27/2019 3:16 PM Pain Level 0 03/27/2019 3:24 PM Vitals shown include unvalidated device data. Patient Location: PACU/[facility] Level of Consciousness: Awake and Alert Pain [...] epi, into skin and subcutaneous tissues (CPT [id number]) left total hip arthroplasty, anterior Hueter approach with [place] table (CPT code 91659) Left hip intraoperative radiologic examination (CPT code 54363) Amicar infusion (5 g IV load, then 1g/hr x 3 hrs) Components Used: [place] Accolade stem, size 4, 127 degrees Trident PSLcup, 52 mm, solid 32 mm ID, alumina 32-4 mm alumina head ??? Hip pain ??? S/P Right ARSLAN 03/06/2005 ([place]) SURGERY DATE: 03/06/2005 ARCADIO STEINER, NICK Angel Surgical Procedure Performed: Right total hip arthroplasty, cementless, syyazgp-gf-njzqvwn Components Used: [place] Trident 52 shell outer diameter Femoral head 32-4 mm [place] Accolade Femoral stem size 4, 127 deg [...] hypermobility syndrome ??? GI bleeding 03/25/2011 ??? meterman current use of opiate analgesic ??? Motion [...] risks discussed with patient. Plan discussed with ALLERGY PHYSICIAN. PAT Clinic Note documented in this encounter Plan of Treatment Upcoming Encounters Date Type Department Care Team (Late st Contact Info) Description 11/16/2024 1:00 PM EST Office [place] [address] Paula Harris PA [facility] [place] [address] 01/26/2025 9:50 AM EDT Appointment Mammography/[place] [address] Joan Deutsch APRN [facility] [place] [address] 01/26/2025 10:50 AM EDT Office Visit General Surgery at [place] [phone] Joan Deutsch, GE [facility] [place] [address] documented as of this encounter Visit Diagnoses [...] mg documented in this encounter Care Teams Resource Recovery Engineer Relationship Specialty Start Date End Date Mariluz Watts MD [address] [place] [address] [address] [place] [address] PCP - General 08/22/10 documented as of this encounter
--- OUTSIDE RECORDS SUMMARY | 2024-05-21 06:08 | XMS_ITS | Encounter Summary ---
[place] [address] Care Team Providers Care Public Information Coordinator Name Role Phone Mariluz Watts MD Primary Care Provider [phone] Reason for Referral * Diagnostic Test (Routine) - Closed Specialty Diagnoses / Procedures Referred By Contac t Referred To Contact Radiology Diagnoses Primary osteoarthritis of right foot Procedures CT Foot wo Contrast Right (Generic) Daylin Waldrop PA [facility] [place] [address] [facility] [place] [address] Referral ID Status Reason Start Date Expiration Date V isits Requested Visits Authorized [id number] Closed Specialty Service Requested 03/10/2019 03/09/2020 1 1 Reason for Visit * Diagnostic Test (Routine) - Closed Specialty Diagnoses / Procedures Referred By Contac t Referred To Contact Radiology Diagnoses Primary osteoarthritis of right foot Procedures CT Foot wo Contrast Right (Generic) Daylin Waldrop PA [facility] [place] [address] [facility] [place] [address] Referral ID Status Reason Start Date Expiration Date V isits Requested Visits Authorized [id number] Closed Specialty Service Requested 03/10/2019 03/09/2020 1 1 Encounter Details Date Type Department Care Team (Latest Contact Info) Description 03/19/2019 8:31 AM EDT - 03/19/2019 11:59 PM EDT Hospital Encounter CT Scan at [facility] [place] [address] Shekhar Moody MD [facility] [place] [address] Primary osteoarthritis of right foot [...] daily as needed. 09/07/2022 multivit with calcium,iron,min (JZBCIHXZNYSI-EF-GFLV-M INERALS ORAL) Take by mouth. 09/07/2022 omeprazole [...] PM EST Office [place] [address] Paula Harris PA [facility] [place] [address] 01/26/2025 9:50 AM EDT Appointment Mammography/[place] [address] Joan Deutsch APRN [facility] [place] [address] 01/26/2025 10:50 AM EDT Office [place] [address] Joan Deutsch APRN [facility] [place] [address] documented as of this encounter Procedures Procedure [...] the number below. ? Electronically signed by: Marly Torres [facility] ([phone]), at 03/19/2019 9:47 AM Narrative 03/19/2019 9:47 AM EDT EXAMINATION: CT [...] foot documented in this encounter Care Teams Public Information Coordinator Relationship Specialty Start Date End Date Mariluz Watts MD [address] [place] [address] PCP - General 08/22/10 documented as of this encounter
--- OUTSIDE RECORDS SUMMARY | 2024-05-21 06:08 | XMS_ITS | Encounter Summary ---
Author Organization [facility] [place] [address] Care Team Providers Care Breastfeeding Educator Name Role Phone Mariluz Watts MD Primary Care Provider [phone] Encounter Details Date Type Department Care Team (Latest Contact Info) Description 11/23/2019 8:38 AM EST - 11/23/2019 11:59 PM [facility] Hospital Encounter XRay at [address] [place] [address] Shekhar Moody MD [facility] [place] [address] Chronic pain of both knees Discharge Disposition: [...] daily as needed. 09/07/2022 multivit with calcium,iron,min (WWMHTTDQSRLC-LV-KSFV-M INERALS ORAL) Take by mouth. 09/07/2022 omeprazole [...] PM EST Office [place] [address] Paula Harris PA [facility] [place] [address] 01/26/2025 9:50 AM EDT Appointment Mammography/[place] [address] Joan Deutsch, INSTRUMENT AND ELECTRICAL TECHNICIAN [facility] [place] [address] 01/26/2025 10:50 AM EDT Office [place] [address] Joan Deutsch APRN [facility] [place] [address] documented as of this encounter Procedures Procedure Name Priority Date/Time Associated Diagnosis Comments XR KNEE STANDING ALIGNMENT AP LAT [place] SKYLINE BILAT Routine 11/23/2019 9:04 AM EST Chronic pain of both knees documented in this encounter Results * XR Knee Standing Alignment AP Lat [place] Bland Bilat (11/23/2019 9:04 AM EST) Anatomical Region [...] knees documented in this encounter Care Teams Breastfeeding Educator Relationship Specialty Start Date End Date Mariluz Watts MD [address] [place] [address] PCP - General 08/22/10 documented as of this encounter
--- OUTSIDE RECORDS SUMMARY | 2024-05-21 06:08 | XMS_ITS | Encounter Summary ---
Author Organization [facility] [place] [address] Care Team Providers Care Plant Electrical Engineer Name Role Phone Mariluz Watts MD Primary Care Provider Reason for Visit * Reason Comments Skin Check * Consultation (Routine) - Specialty Diagnoses / Procedures Referred By John lyons Referred To Contact Dermatology Diagnoses Disorder of the skin and subcutaneous tissue, unspecified subcutaneous tissue disorder Mariluz Watts MD [address] [facility] [address] [place] [address] [facility] Dermatology [address] [place] [address] Referral ID Status Reason Start Date Expiration Date V isits Requested Visits Authorized [id number] Consult, Test & Treat PCP Updated and/or Approved 05/27/2019 11/27/2019 6 6 Encounter Details Date Type Department Care Team (Late st Contact Info) Description 08/03/2019 11:00 AM EST Office Visit Dermatology at [facility] [address] [place] [address] Terry Min MD [facility] DR [place] [address] Seborrheic keratoses; Seborrheic keratosis, inflamed; Carlos angioma [...] daily as needed. ??? multivit with calcium,iron,min (XANTQJDGRBPH-OF-VVHX-MINERALS ORAL) Take by mouth. ??? omeprazole (PRILOSEC) [...] by: Terry Min MD Resident in Dermatology [facility] Patient seen and evaluated with staff spud sorter: José Manuel Kelly MD Section of Dermatology [facility] * José Manuel Kelly MD - 08/03/2019 [...] withthem as documented. JOSÉ MANUEL KELLY [facility] Physician documented in this encounter Plan of Treatment Upcoming Encounters Date Type Department Care Team (Late st Contact Info) Description 11/16/2024 1:00 PM EST Office [place] [address] Paula Harris PA [facility] [place] [address] 01/26/2025 9:50 AM EDT Appointment Mammography/DXA at [place] [phone] Joan Deutsch, GE [facility] [place] [address] 01/26/2025 10:50 AM EDT Office Visit General Surgery at [place] [phone] Joan Deutsch, GE [facility] [place] [address] documented as of this encounter Visit Diagnoses Diagnosis Seborrheic keratoses Other seborrheic keratosis Seborrheic keratosis, inflamed Inflamed seborrheic keratosis Carlos angioma Nevus, non-neoplastic documented in this encounter Care Teams Plant Electrical Engineer Relationship Specialty Start Date End Date Mariluz Watts MD [address] [place] [address] [address] [facility] [place] [address] PCP - General 08/22/10 documented as of this encounter
--- OUTSIDE RECORDS SUMMARY | 2024-05-21 06:08 | XMS_ITS | Encounter Summary ---
[place] [address] Care Team Providers Care Human Capital Analyst Name Role Phone Mariluz Watts MD Primary Care Provider Reason for Visit * Reason Comments Ptosis * Consultation (Routine) - Closed Specialty Diagnoses / Procedures Referred By John lyons Referred To Contact Ophthalmology Diagnoses eyelid disorder/needs a visual field done Mariluz Watts MD [address] [place] [address] Debbi Green MD [facility] [place] [address] Referral ID Status Reason Start Date Expiration Date V isits Requested Visits Authorized [id number] Closed Consult, Test & Treat 02/09/2019 02/09/2020 1 1 Encounter Details Date Type Department Care Team (Latest Contact Info) Description 02/11/2019 7:30 AM EDT Office [place] [address] Debbi Green MD [facility] [place] [address] Dermatochalasis of both upper eyelids Social History [...] PM EST Office [place] [address] Paula Harris PA [facility] [place] [address] 01/26/2025 9:50 AM EDT Appointment Mammography/DXA at [facility] [place] [address] Joan Deutsch, [facility] [place] [address] 01/26/2025 10:50 AM EDT Office Visit General Surgery at [facility] [place] [address] Joan Deutsch, [facility] DR [facility]Z SURG[facility] [place] [address] documented as of this encounter Procedures Procedure [...] eyelids documented in this encounter Care Teams Human Capital Analyst Relationship Specialty Start Date End Date Mariluz Watts MD [address] [place] [address] PCP - General 08/22/10 documented as of this encounter
--- OUTSIDE RECORDS SUMMARY | 2024-05-21 06:08 | XMS_ITS | Encounter Summary ---
Author Organization [facility] [place] [address] Care Team Providers Care Food And Beverage Order Clerk Name Role Phone Mariluz Watts MD Primary Care Provider [phone] Encounter Details Date Type Department Care Team (Latest Contact Info) Description 12/11/2019 10:42 AM EDT - 12/11/2019 11:59 PM EDT Hospital Encounter Mammography/[place] [address] Karin Webb APRN [facility] [place] [address] History of breast cancer Discharge Disposition: Home [...] daily as needed. 09/07/2022 multivit with calcium,iron,min (KFUREEGFLZZZ-WP-NOVC- MINERALS ORAL) Take by mouth. 09/07/2022 omeprazole [...] PM EST Office [place] [address] Paula Harris PA [facility] [place] [address] 01/26/2025 9:50 AM EDT Appointment Mammography/[place] [address] Joan Deutsch APRN [facility] [place] [address] 01/26/2025 10:50 AM EDT Office Visit General Surgery at [facility] [place] [address] Joan Deutsch APRN [facility] [place] [address] documented as of this encounter Procedures Procedure [...] report, please contact the number below. ? Karin Webb APRN IMG MAMMO ORD ERABLES documented in this encounter Visit Diagnoses Diagnosis History of breast cancer Personal history of malignant neoplasm of breast documented in this encounter Care Teams Food And Beverage Order Clerk Relationship Specialty Start Date End Date Mariluz Watts MD [address] [place] [address] PCP - General 08/22/10 documented as of this encounter
--- OUTSIDE RECORDS SUMMARY | 2024-05-21 06:08 | XMS_ITS | Encounter Summary ---
[place] [address] Care Team Providers Care Snowboard Designer Name Role Phone Mariluz Watts MD Primary Care Provider [phone] Reason for Referral * Diagnostic Test (Routine) - Closed Specialty Diagnoses / Procedures Referred By John lyons Referred To Contact Radiology Diagnoses Primary osteoarthritis of right foot Procedures CT Foot wo Contrast Right (Generic) Daylin Waldrop PA [facility] DR [place] [address] [facility] [place] [address] Referral ID Status Reason Start Date Expiration Date V isits Requested Visits Authorized [id number] Closed Specialty Service Requested 03/10/2019 03/09/2020 1 1 Reason for Visit * Reason Comments Follow-up right foot pain - di scuss surgery Encounter Details Date Type Department Care Team (Latest Contact Info) Description 03/10/2019 3:30 PM EDT Office [place] [address] Primary osteoarthritis of right foot Social History [...] NAME: Diamond Gaming AGE: 73 y.o. MR#: [id number] DATE OF VISIT: 03/10/2019 CHIEF COMPLAINT: FU [...] tear (TEARS) Drops ??? multivit with calcium,iron,min (NEAEPBWBYJWB-NA-HPCD-MINERALS ORAL) ??? omeprazole (PRILOSEC) 20 mg Capsule, [...] PM EST Office Visit [place] [address] Paula Harris PA [facility] [place] [address] 01/26/2025 9:50 AM EDT Appointment Mammography/[place] [address] Joan Deutsch, [employer] [facility] [place] [address] 01/26/2025 10:50 AM EDT Office Visit [place] [address] Joan Deutsch, [employer] [facility] [place] [address] documented as of this encounter Results * [...] foot documented in this encounter Care Teams Snowboard Designer Relationship Specialty Start Date End Date Mariluz Watts MD [address] [place] [address] PCP - General 08/22/10 documented as of this encounter
--- OUTSIDE RECORDS SUMMARY | 2024-05-21 06:08 | XMS_ITS | Encounter Summary ---
Author Organization [facility] [place] [address] Care Team Providers Care Bass Singer Name Role Phone Mariluz Watts MD Primary Care Provider [phone] Reason for Visit * Reason Onset Date Comments Pre Procedure Call 12/03/2018 Encounter Details Date Type Department Care Team (Late st Contact Info) Description 12/03/2018 Telephone [place] [address] Shekhar Moody MD [facility] [place] [address] Pre Procedure Call Social History Tobacco Use [...] left a message for patient to call [phone] directly and schedule surgery with Dr. Moody. * Telephone Encounter - Cleo Coyne - 12/03/2018 10:59 AM EST I called and left a message for patient to call [phone] directly and schedule surgery with Dr. moody. documented in this encounter Plan of Treatment Upcoming Encounters Date Type Department Care Team (Late st Contact Info) Description 11/16/2024 1:00 PM EST Office [place] [address] Paula Harris PA [facility] [place] [address] 01/26/2025 9:50 AM EDT Appointment Mammography/[place] [address] Joan Deutsch [facility] [place] [address] 01/26/2025 10:50 AM EDT Office [place] [address] Joan Deutsch [facility] [place] [address] documented as of this encounter Visit Diagnoses Not on filedocumented in this encounter Care Teams Bass Singer Relationship Specialty Start Date End Date Mariluz Watts MD [address] [place] [address] [address] [place] [address] PCP - General 08/22/10 documented as of this encounter
--- OUTSIDE RECORDS SUMMARY | 2024-05-21 06:08 | XMS_ITS | Encounter Summary ---
Author Organization [facility] Address [facility] [place] [address] Care Team Providers Care Ecommerce Project Manager Name Role Phone Marilzu Watts MD Primary Care Provider [phone] Reason for Visit * Physical Therapy (Routine) - Closed Specialty Diagnoses / Procedures Referred By John lyons Referred To Contact Physical Therapy Diagnoses OAB (overactive bladder) Bella Keenan MD [facility] [place] [address] [facility] Pt Rehab 10 [place] [address] Referral ID Status Reason Start Date Expiration Date V isits Requested Visits Authorized [id number] Closed Evaluate and Treat 10/11/2020 10/11/2021 12 12 Encounter Details Date Type Department Care Team (Late st Contact Info) Description 12/29/2020 11:00 AM EDT Office Visit Rehab PT at [facility] 10 [place] [address] Shaila Rendon PT OAB (overactive [...] holding. ?? 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 ? MET date Correction Therapy Goals (6 months, 05/23/2021) 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... [...] PM EST Office Visit General Surgery at [place] [phone] Paula Harris, [facility] [place] [address] 01/26/2025 9:50 AM EDT Appointment Mammography/DXA at [place] [phone] Joan Deutsch, GE [facility] [place] [address] 01/26/2025 10:50 AM EDT Office Visit General Surgery at [place] [phone] Joan Deutsch, GE [facility] [place] [address] documented as of this encounter Visit Diagnoses Diagnosis OAB (overactive bladder) Hypertonicity of bladder Pelvic floor dysfunction Pelvic muscle wasting documented in this encounter Care Teams Ecommerce Project Manager Relationship Specialty Start Date End Date Mariluz Watts MD [address] [place] [address] PCP - General 08/22/10 documented as of this encounter
--- OUTSIDE RECORDS SUMMARY | 2024-05-21 06:08 | XMS_ITS | Encounter Summary ---
Author Organization [facility] Address [facility] [place] [address] Care Team Providers Care Baseball Hand Sewer Name Role Phone Mariluz Watts MD Primary Care Provider [phone] Reason for Visit * Physical Therapy (Routine) - Closed Specialty Diagnoses / Procedures Referred By John lyons Referred To Contact Physical Therapy Diagnoses OAB (overactive bladder) Bella Keenan MD [facility] [place] [address] [facility] Pt Rehab [address] [place] [address] Referral ID Status Reason Start Date Expiration Date V isits Requested Visits Authorized [id number] Closed Evaluate and Treat 10/11/2020 10/11/2021 12 12 Encounter Details Date Type Department Care Team (Latest Contact Info) Description 12/08/2020 11:00 AM EST Office Visit Rehab PT at [facility] [address] [place] [address] Shaila Rendon PT OAB (overactive [...] surgery a month ago, now in regular [facility] moccasin. Was able to walk around the [...] LE, ?? []? Strengthening []?TrA Set, with []?[facility] TrA level []? ?? Self-care/Trainin min [...] holding. ?? 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 ? MET date Care Home Therapy Goals (6 months, 05/23/2021) 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... [...] PM EST Office [place] [phone] Paula Harris PA [facility] [place] [address] 01/26/2025 9:50 AM EDT Appointment Mammography/[place] [address] Joan Deutsch APRN [facility] [place] [address] 01/26/2025 10:50 AM EDT Office [place] [address] Joan Deutsch [facility] [place] [address] documented as of this encounter Visit Diagnoses [...] disorder documented in this encounter Care Teams Baseball Hand Sewer Relationship Specialty Start Date End Date Mariluz Watts MD [address] [place] [address] PCP - General 08/22/10 documented as of this encounter
--- OUTSIDE RECORDS SUMMARY | 2024-05-21 06:08 | XMS_ITS | Encounter Summary ---
Author Organization [facility] Address [facility] [place] [address] Care Team Providers Care Patrol Sergeant Sheriff'S Office Name Role Phone Mariluz Watts MD Primary Care Provider [phone] Reason for Visit * Physical Therapy (Routine) - Closed Specialty Diagnoses / Procedures Referred By John lyons Referred To Contact Physical Therapy Diagnoses OAB (overactive bladder) Bella Keenan MD [facility] [place] [address] [facility] Pt Rehab [address] [place] [address] Referral ID Status Reason Start Date Expiration Date V isits Requested Visits Authorized [id number] Closed Evaluate and Treat 10/11/2020 10/11/2021 12 12 Encounter Details Date Type Department Care Team (Latest Contact Info) Description 11/23/2020 11:00 AM EST Office Visit Rehab PT at [facility] [address] [place] [address] Shaila Rendon PT OAB (overactive [...] (stopped as it caused HTN), PT at [facility] in [place] (helpful, but not on meds at the [...] or breath holding. 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 MET date Edi Analyst Therapy Goals (6 months, 05/23/2021) 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... [...] PM EST Office Visit [place] [address] Paula Harris PA [facility] [place] [address] 01/26/2025 9:50 AM EDT Appointment Mammography/[place] [address] Joan Deutsch APRN [facility] [place] [place] [address] 01/26/2025 10:50 AM EDT Office Visit [place] [address] Joan Deutsch APRN [facility] [place] [place] [address] Scheduled Referrals Name Type Priority Associated Diagnoses [...] disorder documented in this encounter Care Teams Patrol Sergeant Sheriff'S Office Relationship Specialty Start Date End Date Mariluz Watts MD [address] [place] [address] PCP - General 08/22/10 documented as of this encounter
--- OUTSIDE RECORDS SUMMARY | 2024-05-21 06:08 | XMS_ITS | Encounter Summary ---
[place] [address] Care Team Providers Care Double Corner Cutter Name Role Phone Mariluz Watts MD Primary Care Provider [phone] Reason for Visit * Reason Comments Follow-up XR, bilat TKA surgic al consult Encounter Details Date Type Department Care Team (Latest Contact Info) Description 11/23/2019 9:40 AM EST Office [place] [address] Shekhar Moody MD [facility] DR [place] [address] Primary osteoarthritis of left knee (Primary Dx); [...] tear (TEARS) Drops ??? multivit with calcium,iron,min (RAXWSLKAMTRI-BG-BXPZ-MINERALS ORAL) ??? omeprazole (PRILOSEC) 20 mg Capsule, [...] more [facility]. Enjoys reading Has a dog, which she enjoys walking Lives with her son in [facility] Social History Tobacco Use ??? Smoking [...] PM EST Office [place] [address] Paula Harris PA [facility] [place] [address] 01/26/2025 9:50 AM EDT Appointment Mammography/[place] [address] Joan Deutsch APRN [facility] [place] [address] 01/26/2025 10:50 AM EDT Office [place] [address] Joan Deutsch APRN [facility] [place] [address] documented as of this encounter Visit Diagnoses Diagnosis Primary osteoarthritis of left knee- Primary Primary localized osteoarthrosis, lower leg Need for prophylactic chemotherapy Need for other prophylactic chemotherapy Pain in extremity, unspecified extremity documented in this encounter Care Teams Double Corner Cutter Relationship Specialty Start Date End Date Mariluz Watts MD [address] [place] [address] PCP - General 08/22/10 documented as of this encounter
--- OUTSIDE RECORDS SUMMARY | 2024-05-21 06:08 | XMS_ITS | Encounter Summary ---
[place] [address] Care Team Providers Care Choir Director Name Role Phone Mariluz Watts MD Primary Care Provider [phone] Encounter Details Date Type Department Care Team (Late st Contact Info) Description 05/21/2019 Telephone Hematology [place] [address] Maricarmen Martins, RN Social History Tobacco Use [...] is still waiting on lab results from [facility] in [place] that were drawn. Would you mind giving her a call at home at [phone]? Thanks for your time, December...again documented in this encounter Plan of Treatment Upcoming Encounters Date Type Department Care Team (Late st Contact Info) Description 11/16/2024 1:00 PM EST Office Visit [place] [address] Paula Harris PA [facility] [place] [address] 01/26/2025 9:50 AM EDT Appointment Mammography/[place] [address] Joan Deutsch [facility] [place] [address] 01/26/2025 10:50 AM EDT Office [place] [phone] Joan Deutsch ROBOTICS MECHANIC [facility] [place] [address] documented as of this encounter Visit Diagnoses Not on filedocumented in this encounter Care Teams Choir Director Relationship Specialty Start Date End Date Mariluz Watts MD [address] [place] [address] [address] [place] [address] PCP - General 08/22/10 documented as of this encounter
--- OUTSIDE RECORDS SUMMARY | 2024-05-21 06:09 | XMS_ITS | Encounter Summary ---
Author Organization [facility] [place] [address] Care Team Providers Care Veterinary Pharmacologist Name Role Phone Mariluz Watts MD Primary Care Provider Encounter Details Date Type Department Care Team (Late st Contact Info) Description 03/26/2017 1:30 PM EDT - 03/26/2017 2:30 PM EDT Surgery [place] [address] Gallito Lincoln MD [facility] [place] [address] COLONOSCOPY, POLYPECTOMY, REMOVAL LESION BY SNARE (WRVU [...] ALPRAZolam (XANAX) 0.5 mg Tablet 12/07/2016 05/01/2018 [facility] CMB #1-[id number]-VOUXDITABN ORAL Take 1 tablet by mouth daily. 12/24/2012 05/01/2018 Lysine 500 mg Tablet Take 1 tablet by mouth daily. Reported on 12/11/2016 05/01/2018 multivitamin (THERAGRAN) tablet Take 1 tablet by mouth daily. Reported on 12/11/2016 07/03/2018 ammonium lactate (LAC-HYDRIN) 12 % lotionIndications:SK (seborrheic keratosis) Apply topically as needed for Dry Skin. Use to rough spots on thighs. 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 pick remover both scripts 02/02/14 400 g 10 02/01/2014 [...] PM EST Office [place] [address] Paula Harris PA [facility] [place] [address] 01/26/2025 9:50 AM EDT Appointment Mammography/[place] [address]1000 Joan Deutsch LENS MAKER [facility] [place] [address] 01/26/2025 10:50 AM EDT Office [place] [address] Joan Deutsch APRN [facility] [place] [address] documented as of this encounter Procedures Procedure [...] Report (03/26/2017 2:11 PM EDT) Final Diagnosis [id number] ?Location: 4T; EA07; A The signing pathologist [...] with low grade dysplasia Whole slide scan: [id number] ?? B1-1 [id number] B 1-2 [id number] B 1-3 CLINICAL INFORMATION Specimen Submitted: A [...] Sections/Processing: (T2) ??ejr 03/30/2017 1:11 PM EDT [facility] GI Biopsy 03/26/2017 2:11 PM EDT 03/26/2017 2:11 PM EDT GI Biopsy 03/26/2017 2:11 PM EDT 03/26/2017 2:11 PM EDT Gallito Lincoln MD PATHOLOGY/CYTOLOGY O RDERABLES Performing Organization Address City/State/[facility] [place] [address] * Specimen to Pathology (surgical or derm) (03/26/2017 2:11 PM EDT) AP Specimen 03/26/2017 2:11 PM EDT 03/26/2017 2:11 PM EDT Narrative [facility] - 03/26/2017 2:11 PM EDT Specimen requisition ordered. ??Separate Pathology report to follow Gallito Lincoln MD PATHOLOGY/CYTOLOGY O JOSELUIS Performing Organization Address [facility] [place] [address] * Specimen to Pathology (surgical or derm) (03/26/2017 2:11 PM EDT) AP Specimen 03/26/2017 2:11 PM EDT 03/26/2017 2:11 PM EDT Narrative [facility] - 03/26/2017 2:11 PM EDT Specimen requisition ordered. ??Separate Pathology report to follow Gallito Lincoln MD PATHOLOGY/CYTOLOGY O JOSELUIS Performing Organization Address [facility] [place] [address] * COLONOSCOPY (03/26/2017 12:20 PM EDT) COLONOSCOPY [facility] Endoscopy Procedure Date: 03/26/2017 12:20 PM ? Patient Name: Diamond Gaming ? Date of : 1945 ? Age: 71 ? Order #: [id number] ? Instrument Name: [id number] ? Procedure: ? Colonoscopy Indications: ? Follow-up [...] preparation was evaluated using ? the BBPS (Denhoff Bowel Preparation ? Scale) with scores of: [...] Niru Chavez RN)1326 (Given - Provider: Niru Cahvez RN)1334 (Given - Provider: Niru Chavez RN)1338 [...] RN) documented in this encounter Care Teams Veterinary Pharmacologist Relationship Specialty Start Date End Date Mariluz Watts MD [address] [place] [address] PCP - General 08/22/10 documented as of this encounter
--- OUTSIDE RECORDS SUMMARY | 2024-05-21 06:09 | XMS_ITS | Encounter Summary ---
[place] [address] Care Team Providers Care Hedge Trimmer Name Role Phone Mariluz Watts MD Primary Care Provider [phone] Reason for Visit * Reason Comments Follow Up Surgery Encounter Details Date Type Department Care Team (Late st Contact Info) Description 12/11/2016 9:15 AM EDT Office Visit [place] [address] Bella Ly APRN [facility] [place] [address] History of breast cancer Social History Tobacco [...] carcinoma with lobular features Tumor Grade: Intermediate Oahzci-Mlozo-Bjfqjssdmq Score: 7 Tubular Differentiation: 3 Mitotic Rate: [...] sentinel nodes: 2 (Specimen A - Right [place] node) No. positive for carcinoma: 1 (H&E) [...] PM EST Office [place] [address] Paula Harris PA [facility] [place] [address] 01/26/2025 9:50 AM EDT Appointment Mammography/[place] [address] Joan Deutsch APRN [facility] [place] [address] 01/26/2025 10:50 AM EDT Office Visit [place] [address] Joan Deutsch APRN [facility] [place] [address] documented as of this encounter Results * [...] BIRADS CATEGORY 2: BENIGN FINDINGS * ??The [employer] [employer] and The Society of [...] breast documented in this encounter Care Teams Hedge Trimmer Relationship Specialty Start Date End Date Mariluz Watts MD [address] [place] [address] PCP - General 08/22/10 documented as of this encounter
--- OUTSIDE RECORDS SUMMARY | 2024-05-21 06:09 | XMS_ITS | Encounter Summary ---
[place] [address] Care Team Providers Care Financial Services Sales Representative Name Role Phone Mariluz Watts MD Primary Care Provider [phone] Reason for Visit * Reason Comments Follow Up Surgery Encounter Details Date Type Department Care Team (Late st Contact Info) Description 12/12/2017 12:15 PM EDT Office [place] [address] Bella Ly APRN [facility] [place] [address] History of breast cancer Social History Tobacco [...] carcinoma with lobular features Tumor Grade: Intermediate Kwxrfb-Qrpnt-Sztyfjkxuw Score: 7 Tubular Differentiation: 3 Mitotic Rate: [...] sentinel nodes: 2 (Specimen A - Right [place] node) No. positive for carcinoma: 1 (H&E) No. with IHC (+) cells only: 0 (cells not seen by H&E, see Note*) No. negative for carcinoma: 1 (both H&E and IHC For positive nodes: Largest kristi deposit 0.2 cm Extranodal extension Absent Estrogen/Progestin receptors: Performed on blocks C2 and C11 ER immunoreactivity: Positive (see Diagnostic hanna*) HI immunoreactivity: Positive (see Diagnostic hanna*) HER2/shonda expression [...] PM EST Office [place] [address] Paula Harris PA [facility] [place] [address] 01/26/2025 9:50 AM EDT Appointment Mammography/[place] [address]1000 Joan eDutsch APRN [facility] [place] [address] 01/26/2025 10:50 AM EDT Office [place] [address] Joan Deutsch APRN [facility] [place] [address] documented as of this encounter Results * [...] BIRADS CATEGORY 2: Benign findings. * ??The [place] [employer] and The Society of [...] contact the number below. ? Bella Ly DINKEY [employer]INNER IMG MAMMO ORDERA BLES documented in this encounter Visit Diagnoses Diagnosis History of breast cancer Personal history of malignant neoplasm of breast History of breast cancer Personal history of malignant neoplasm of breast documented in this encounter Care Teams Financial Services Sales Representative Relationship Specialty Start Date End Date Mariluz Watts MD [address] [place] [address] PCP - General 08/22/10 documented as of this encounter
--- OUTSIDE RECORDS SUMMARY | 2024-05-21 06:09 | XMS_ITS | Encounter Summary ---
Author Organization [facility] [place] [address] Care Team Providers Care Aix System Administrator Name Role Phone Mariluz Watts MD Primary Care Provider [phone] Reason for Referral * Consultation (Urgent) - Closed Specialty Diagnoses / Procedures Referred By John lyons Referred To Contact Hematology and Oncology Diagnoses Primary osteoarthritis of left knee Hypochromic microcytic anemia Bleeding diathesis IRON DEFICIENCY ANEMIA Home Olivas MD [facility] [place] [address] [facility] Hem Onc [address] [place] [address] Referral ID Status Reason Start Date Expiration Date V isits Requested Visits Authorized [id number] Closed Consult, Test & Treat Connection Center 09/19/2018 09/19/2019 1 1 Reason for Visit * Reason Comments Pre-op Exam L TKA DOS 10/13/18 Encounter Details Date Type Department Care Team (Latest Contact Info) Description 09/18/2018 10:40 AM EST Office Visit [place] [address] [facility] [place]THOPAEDIC [place] [address] Preop examination; Primary osteoarthritis of left knee; [...] more (4 hours per week with personal carer and 20minutes other days at home of [...] She would like the pantoprazole sent to [facility] in [facility], I have resent the script there. She [...] PM EST Office Visit General Surgery at [place] [address] Paula Harris, PA [facility] [place] [address] 01/26/2025 9:50 AM EDT Appointment Mammography/[place] [address] Joan Deutsch, GE [facility] [place] [address] 01/26/2025 10:50 AM EDT Office Visit General Surgery at [place] [phone] Joan Deutsch, GE [facility] [place] [place] [address] Scheduled Referrals Name Type Priority Associated Diagnoses [...] conditions documented in this encounter Care Teams Aix System Administrator Relationship Specialty Start Date End Date Mariluz Watts MD [address] [place] [address] PCP - General 08/22/10 documented as of this encounter
--- OUTSIDE RECORDS SUMMARY | 2024-05-21 06:09 | XMS_ITS | Encounter Summary ---
Author Organization [facility] [place] [address] Care Team Providers Care Bottling Equipment Sales Representative Name Role Phone Mariluz Watts MD Primary Care Provider [phone] Reason for Visit * Reason Comments Advice Only left hand Dupuytrens Encounter Details Date Type Department Care Team (Latest Contact Info) Description 05/01/2018 11:15 AM EDT Office [place] [address] Ken Mosqueda MD [facility] [place] [address] Other secondary osteoarthritis of first carpometacarpal joint [...] Office [place] [address] Paula Harris PA [facility] GENERAL SURGERY [place], [place] [address] 01/26/2025 9:50 AM EDT Appointment Mammography/[place] [address] Joan Deutsch, GE [facility] [place] [address] 01/26/2025 10:50 AM EDT Office [place] [address] Joan Deutsch [facility] [place] [address] documented as of this encounter Visit Diagnoses Diagnosis Other secondary osteoarthritis of first carpometacarpal joint of left hand documented in this encounter Care Teams Bottling Equipment Sales Representative Relationship Specialty Start Date End Date Mariluz Watts MD [address] [place] [address] PCP - General 08/22/10 documented as of this encounter
--- OUTSIDE RECORDS SUMMARY | 2024-05-21 06:09 | XMS_ITS | Encounter Summary ---
[place] [address] Care Team Providers Care Bulk Fluids Handler Name Role Phone Mariluz Watts MD Primary Care Provider [phone] Encounter Details Date Type Department Care Team (Late st Contact Info) Description 11/28/2018 11:30 AM EST Office [place] [address] Bella Ly APRN [facility] [place] [address] History of breast cancer Social History Tobacco [...] carcinoma with lobular features Tumor Grade: Intermediate Pzrzpn-Brlfj-Rgvbxcvzrj Score: 7 Tubular Differentiation: 3 Mitotic Rate: [...] sentinel nodes: 2 (Specimen A - Right [place] node) No. positive for carcinoma: 1 (H&E) No. with IHC (+) cells only: 0 (cells not seen by H&E, see Note*) No. negative for carcinoma: 1 (both H&E and IHC For positive nodes: Largest kristi deposit 0.2 cm Extranodal extension Absent Estrogen/Progestin receptors: Performed on blocks C2 and C11 ER immunoreactivity: Positive (see Diagnostic hanna*) NE immunoreactivity: Positive (see Diagnostic hanna*) HER2/shonda expression [...] PM EST Office [place] [address] Paula Harris PA [facility] [place] [address] 01/26/2025 9:50 AM EDT Appointment Mammography/[place] [address] Joan Deutsch APRN [facility] [place] [address] 01/26/2025 10:50 AM EDT Office [place] [address] Joan Deutsch APRN [facility] [place] [address] documented as of this encounter Visit Diagnoses Diagnosis History of breast cancer Personal history of malignant neoplasm of breast documented in this encounter Care Teams Bulk Fluids Handler Relationship Specialty Start Date End Date Mariluz Watts MD [address] [place] [address] PCP - General 08/22/10 documented as of this encounter
--- OUTSIDE RECORDS SUMMARY | 2024-05-21 06:09 | XMS_ITS | Encounter Summary ---
[place] [address] Care Team Providers Care Gym Attendant Name Role Phone Mariluz Watts MD Primary Care Provider [phone] Reason for Visit * Reason Comments IV Medication Encounter Details Date Type Department Care Team (Latest Contact Info) Description 10/24/2018 6:58 AM EST - 10/24/2018 11:59 PM EST Hospital Encounter Hematology [place] [address] Iron deficiency anemia, unspecified iron deficiency anemia [...] Office Visit General Surgery at [place] [phone] Paula Harris PA [facility] [place] [address] 01/26/2025 9:50 AM EDT Appointment Mammography/[place] [address] Joan Deutsch SALESPERSON FLOWERS [facility] [place] [address] 01/26/2025 10:50 AM EDT Office Visit General Surgery at [place] [phone] Joan Deutsch SALESPERSON FLOWERS [facility] [place] [place] [address] documented as of this encounter Visit Diagnoses [...] mg documented in this encounter Care Teams Gym Attendant Relationship Specialty Start Date End Date Mariluz Watts MD [address] [facility] [place] [address] PCP - General 08/22/10 documented as of this encounter
--- OUTSIDE RECORDS SUMMARY | 2024-05-21 06:09 | XMS_ITS | Encounter Summary ---
Author Organization [facility] [place] [address] Care Team Providers Care Radiation Control Health Physicist Name Role Phone Mariluz Watts MD Primary Care Provider [phone] Reason for Visit * Reason Comments After[facility] Of Tjr bilateral ARSLAN Bilateral Knee Pain Bilateral Foot Pain right foot pain > le ft foot pain Encounter Details Date Type Department Care Team (Latest Contact Info) Description 07/03/2018 11:00 AM EDT Office [place] [address] Cornell Marinelli PA [facility] [place] [address] Hallux valgus of right foot; Osteoarthritis of [...] and the navicular cuneiform joints. Questionnaire Responses: [facility] Surgical Postop Visit 07/03/2018 PROMIS-10 General Health [...] Choose Same Treatment Again Probably no Orthopeadics [facility] Response 07/03/2018 HOOS JR Scores 73.47 Spine [facility] Response 07/03/2018 HOOS JR Scores 73.47 ASSESSMENT/PLAN: [...] arthritis ladder, attempting conservative therapy first with izwj-yrj-etsmznu anti-inflammatories such as ibuprofen or naproxen along [...] PM EST Office [place] [phone] Paula Harris PA [facility] [place] [address] 01/26/2025 9:50 AM EDT Appointment Mammography/[place] [phone] Joan Deutsch APRN [facility] [place] [address] 01/26/2025 10:50 AM EDT Office [place] [phone] Joan Deutsch APRN [facility] [place] [address] documented as of this encounter Visit Diagnoses Diagnosis Hallux valgus of right foot Osteoarthritis of right midfoot Primary osteoarthritis of left knee Primary localized osteoarthrosis, lower leg Status post total replacement of left hip Status post right hip replacement Hip joint replacement by other means documented in this encounter Care Teams Radiation Control Health Physicist Relationship Specialty Start Date End Date Mariluz Watts MD [address] [facility] [place] [address] PCP - General 08/22/10 documented as of this encounter
--- OUTSIDE RECORDS SUMMARY | 2024-05-21 06:09 | XMS_ITS | Encounter Summary ---
[place] [address] Care Team Providers Care Car Conditioner Name Role Phone Mariluz Watts MD Primary Care Provider [phone] Reason for Referral * Consultation (Routine) - Closed Specialty Diagnoses / Procedures Referred By John lyons Referred To Contact Gastroenterology Diagnoses Iron deficiency anemia, unspecified iron deficiency anemia type Pt having iron infusions currently and knee replacement surgery was postponed because of MAEVE. Procedures Call pt back at [phone]. Okay to leave msg. Alvin Sin MD [facility] DR HEMATOLOGY/[place] [address] [facility] Endoscopy [address] [place] [address] Referral ID Status Reason Start Date Expiration Date V isits Requested Visits Authorized [id number] Closed Consult, Test & Treat 10/03/2018 10/03/2019 1 1 Reason for Visit * Consultation (Urgent) - Closed Specialty Diagnoses / Procedures Referred By John lyons Referred To Contact Hematology and Oncology Diagnoses Primary osteoarthritis of left knee Hypochromic microcytic anemia Bleeding diathesis IRON DEFICIENCY ANEMIA Vic Olivas MD [facility] [place] [address] [facility] [address] [place] [address] Referral ID Status Reason Start Date Expiration Date V isits Requested Visits Authorized [id number] Closed Consult, Test & Treat [facility] 09/19/2018 09/19/2019 1 1 Encounter Details Date Type Department Care Team (Late st Contact Info) Description 10/03/2018 10:00 AM EST Office Visit Hematology [place] [address] Charity De La Cruz MD [facility] DR HEMATOLOGY [place] [address] Maricarmen Martins, Alvin Romero MD [facility] HEMATOLOGY/[place] [address] Iron deficiency anemia, unspecified iron deficiency anemia [...] were not included. [facility] [place] [address] HEMOSTASIS CONSULTATION DATE OF VISIT 10/03/2018 Patient [...] OB RN - Home area -lives in [facility] with her son REVIEW OF SYSTEMS [...] Cruz. Alvin Valladares MD Hematology/Oncology fellow Pager [phone] +*+*+*+*+*+*+*+*+*+*+*+*+*+*+*+*+*+*+*+*+*+*+*+*+*+*+*+*+*+*+*+*+*+*+*+*+*+* Hemostasis Attending Physician I have independently [...] GI bleeding. Charity De La Cruz MD Manager Room, [facility] * Charity De La Cruz MD - 10/03/2018 10:00 AM EST Images from the original note were not included. [facility] [place] [address] +*+*+*+*+*+*+*+*+*+*+*+*+*+*+*+*+*+*+*+*+*+*+*+*+*+*+*+*+*+*+*+*+*+*+*+*+*+* Hemostasis Attending Physician I have independently [...] GI bleeding. Charity De La Cruz MD Manager Room, [facility] documented in this encounter Plan of Treatment Upcoming Encounters Date Type Department Care Team (Late st Contact Info) Description 11/16/2024 1:00 PM EST Office [place] [address] Paula Harris PA [facility] [place] [address] 01/26/2025 9:50 AM EDT Appointment Mammography[place] [phone] Joan Deutsch APRN [facility] [place] [address] 01/26/2025 10:50 AM EDT Office [place] [address] Joan Deutsch CLOTH MENDER [facility] [place] [address] Scheduled Referrals Name Type Priority Associated Diagnoses Order Schedule Referral to Gastroenterology Outpatient Referral Routine Iron deficiency anemia, unspecified iron deficiency anemia type Ordered: 10/03/2018 documented as of this encounter Results * Ferritin (11/28/2018 10:20 AM EST) [facility] Signature Ferritin 110 30 - 400 ng/mL [facility] Comment: Pediatric reference ranges not verified at [facility], interpret with caution. Reference ranges for females greater than 50 years of age approach values for men, i.e., 30-400 ng/mL. Blood specimen (specimen) 11/28/2018 10:20 AM EST 11/28/2018 10:35 AM EST Narrative Resulting Agency Comment Spec In Lab Charity De La Cruz MD CHEMISTRY ORDERABL ES [facility] [place] [place] [address] documented in this encounter Visit Diagnoses Diagnosis Iron deficiency anemia, unspecified iron deficiency anemia type documented in this encounter Care Teams Car Conditioner Relationship Specialty Start Date End Date Mariluz Watts MD [address] [place] [address] PCP - General 08/22/10 documented as of this encounter
--- OUTSIDE RECORDS SUMMARY | 2024-05-21 06:09 | XMS_ITS | Encounter Summary ---
[place] [address] Care Team Providers Care Girl Friday Name Role Phone Mariluz Watts MD Primary Care Provider [phone] Encounter Details Date Type Department Care Team (Late st Contact Info) Description 11/28/2018 10:21 AM EST - 11/28/2018 11:59 PM EST Hospital Encounter Mammography[place] [address] Bella Ly, KITCHEN STEWARD/STEWARDESS [facility] [place] [address] History of breast cancer Discharge Disposition: Home [...] PM EST Office [place] [phone] Paula Hraris PA [facility] [place] [address] 01/26/2025 9:50 AM EDT Appointment Mammography[place] [address] Joan Deutsch APRN [facility] [place] [address] 01/26/2025 10:50 AM EDT Office [place] [phone] Joan Deutsch, GE [facility] [place] [address] documented as of this encounter Procedures Procedure [...] BIRADS CATEGORY 2: Benign findings. * ??The [employer] and The Society of [...] contact the number below. ? Bella Ly KITCHEN STEWARD/STEWARDESS IMG MAMMO ORDERA BLES documented in this encounter Visit Diagnoses Diagnosis History of breast cancer Personal history of malignant neoplasm of breast documented in this encounter Care Teams Girl Friday Relationship Specialty Start Date End Date Mariluz Watts MD [address] [place] [address] PCP - General 08/22/10 documented as of this encounter
--- OUTSIDE RECORDS SUMMARY | 2024-05-21 06:09 | XMS_ITS | Encounter Summary ---
[place] [address] Care Team Providers Care Car Mechanic Helper Name Role Phone Mariluz Watts MD Primary Care Provider [phone] Reason for Visit * Reason Comments Anemia Encounter Details Date Type Department Care Team (Latest Contact Info) Description 10/10/2018 11:30 AM EST - 10/10/2018 11:59 PM EST Hospital Encounter Hematology [place] [address] Iron deficiency anemia, unspecified iron deficiency anemia [...] PM EST Office Visit General Surgery at [place] [phone] Paula Harris PA [facility] [place] [address] 01/26/2025 9:50 AM EDT Appointment Mammography/[place] [phone] Joan Deutsch APRN [facility] [place] [place] [address] 01/26/2025 10:50 AM EDT Office [place] [address] Joan Deutsch DUMP WORKER [facility] [place] [address] documented as of this encounter Visit Diagnoses [...] mg documented in this encounter Care Teams Car Mechanic Helper Relationship Specialty Start Date End Date Mariluz Watts MD [address] [place] [address] PCP - General 08/22/10 documented as of this encounter
--- OUTSIDE RECORDS SUMMARY | 2024-05-21 06:09 | XMS_ITS | Encounter Summary ---
Author Organization [facility] [place] [address] Care Team Providers Care Commercial Title Examiner Name Role Phone Mariluz Watts MD Primary Care Provider [phone] Encounter Details Date Type Department Care Team (Latest Contact Info) Description 03/26/2017 12:26 PM EDT - 03/26/2017 3:19 PM EDT Hospital En[place] [address] Gallito Lincoln MD [facility] [place] [address] Discharge Disposition: Home Social History Tobacco Use [...] ALPRAZolam (XANAX) 0.5 mg Tablet 12/07/2016 05/01/2018 [id number] Take 1 tablet by mouth daily. 12/24/2012 05/01/2018 Lysine 500 mg Tablet Take 1 tablet by mouth daily. Reported on 12/11/2016 05/01/2018 multivitamin (THERAGRAN) tablet Take 1 tablet by mouth daily. Reported on 12/11/2016 07/03/2018 ammonium lactate (LAC-HYDRIN) 12 % lotionIndications:SK (seborrheic keratosis) Apply topically as needed for Dry Skin. Use to rough spots on thighs. 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 chart picker both scripts 02/02/14 400 g 10 [...] PM EST Office [place] [address] Paula Harris PA [facility] [place] [place] [address] 01/26/2025 9:50 AM EDT Appointment Mammography[place] [phone] Joan Deutsch APRN [facility] [place] [address] 01/26/2025 10:50 AM EDT Office Visit General Surgery at [facility] [place] [address] Joan Deutsch APRN [facility] [place] [address] documented as of this encounter Procedures Procedure [...] Report (03/26/2017 2:11 PM EDT) Final Diagnosis [id number] ?Location: 4T; EA07; A The signing pathologist [...] with low grade dysplasia Whole slide scan: [id number] ?? B1-1 [id number] B 1-2 [id number] B 1-3 CLINICAL INFORMATION Specimen Submitted: A [...] Sections/Processing: (T2) ??ejr 03/30/2017 1:11 PM EDT [facility] GI Biopsy 03/26/2017 2:11 PM EDT 03/26/2017 2:11 PM EDT GI Biopsy 03/26/2017 2:11 PM EDT 03/26/2017 2:11 PM EDT Gallito Lincoln MD PATHOLOGY/[place] [address] * Specimen to Pathology (surgical or derm) (03/26/2017 2:11 PM EDT) AP Specimen 03/26/2017 2:11 PM EDT 03/26/2017 2:11 PM EDT Narrative [facility] - 03/26/2017 2:11 PM EDT Specimen requisition ordered. ??Separate Pathology report to follow Gallito Lincoln MD PATHOLOGY/CYTOLOGY [place] Performing Organization Address [facility] [place] [address] * Specimen to Pathology (surgical or derm) (03/26/2017 2:11 PM EDT) AP Specimen 03/26/2017 2:11 PM EDT 03/26/2017 2:11 PM EDT Narrative [facility] - 03/26/2017 2:11 PM EDT Specimen requisition ordered. ??Separate Pathology report to follow Gallito Lincoln MD PATHOLOGY/CYTOLOGY [place] Performing Organization Address [facility] [place] [address] * COLONOSCOPY (03/26/2017 12:20 PM EDT) COLONOSCOPY [facility] Endoscopy Procedure Date: 03/26/2017 12:20 PM ? Patient Name: Diamond Gaming ? Date of : 1945 ? Age: 71 ? Order #: [id number] ? Instrument Name: [id number] ? Procedure: ? Colonoscopy Indications: ? Follow-up [...] preparation was evaluated using ? the BBPS (Addison Bowel Preparation ? Scale) with scores of: [...] RN) documented in this encounter Care Teams Commercial Title Examiner Relationship Specialty Start Date End Date Mariluz Watts MD [address] [place] [address] PCP - General 08/22/10 documented as of this encounter
--- OUTSIDE RECORDS SUMMARY | 2024-05-21 06:09 | XMS_ITS | Encounter Summary ---
Author Organization [facility] [place] [address] Care Team Providers Care Workers Compensation Analyst Name Role Phone Mariluz Watts MD Primary Care Provider [phone] Encounter Details Date Type Department Care Team (Latest Contact Info) Description 07/03/2018 9:45 AM EDT Hospital Encounter XRay at [address] [place] [address] Shekhar Moody MD [facility] [place] [address] History of total left hip arthroplasty Discharge [...] PM EST Office [place] [phone] Paula Harris PA [facility] [place] [place] [address] 01/26/2025 9:50 AM EDT Appointment Mammography[place] [phone] Joan Deutsch APRN [facility] [place] [place] [address] 01/26/2025 10:50 AM EDT Office [place] [address] Joan Deutsch HYDROSTATIC TUBING TESTER [facility] [place] [address] documented as of this encounter Procedures Procedure [...] arthroplasty documented in this encounter Care Teams Workers Compensation Analyst Relationship Specialty Start Date End Date Mariluz Watts MD [address] [place] [address] PCP - General 08/22/10 documented as of this encounter
--- OUTSIDE RECORDS SUMMARY | 2024-05-21 06:09 | XMS_ITS | Encounter Summary ---
Author Organization [facility] [place] [address] Care Team Providers Care Materials And Corrosion Engineer Name Role Phone Mariluz Watts MD Primary Care Provider [phone] Encounter Details Date Type Department Care Team (Latest Contact Info) Description 07/03/2018 9:46 AM EDT - 07/03/2018 11:59 PM EDT Hospital Encounter XRay at [address] [place] [address] Shekhar Moody MD [facility] [place] [address] Right foot pain Discharge Disposition: Home Social [...] PM EST Office Visit General Surgery at [place] [phone] Paula Harris PA [facility] [place] [address] 01/26/2025 9:50 AM EDT Appointment Mammography/[place] [phone] Joan Deutsch APRN [facility] [place] [address] 01/26/2025 10:50 AM EDT Office [place] [phone] Joan Deutsch SOCIAL MEDIA ANALYST [facility] [place] [address] documented as of this encounter Procedures Procedure [...] limb documented in this encounter Care Teams Materials And Corrosion Engineer Relationship Specialty Start Date End Date Mariluz Watts MD [address] [place] [address] PCP - General 08/22/10 documented as of this encounter
--- OUTSIDE RECORDS SUMMARY | 2024-05-21 06:09 | XMS_ITS | Encounter Summary ---
Author Organization [facility] [place] [address] Care Team Providers Care Product Manager Financial Services Name Role Phone Mariluz Watts MD Primary Care Provider [phone] Reason for Visit * Reason Comments Follow-up Encounter Details Date Type Department Care Team (Late st Contact Info) Description 12/11/2016 10:30 AM EDT Office Visit Hematology [place] [address] Abrahan Merlos MD [facility] HEMATOLOGY/[place] [address] Breast cancer, stage 2, right Social History [...] same day. Please call my office at [phone] in the interim if you have any concerns over your breast exam. documented in this encounter Progress Notes * Abrahan Merlos MD - 12/11/2016 10:30 AM EDT Subjective: Patient ID: Daimond Gaming is a 70 y.o. female with [...] she is considering seeing a urologist at [facility]. She has an occasional headache. 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 Abrahan Merlos MD scaler in Hematology-Oncology documented in this encounter Plan of Treatment Upcoming Encounters Date Type Department Care Team (Late st Contact Info) Description 11/16/2024 1:00 PM EST Office Visit [place] Surgery [place] [phone] Paula Harris PA [facility] [place] [place] [address] 01/26/2025 9:50 AM EDT Appointment Mammography/DXA at [place] [address] Joan Deutsch, GE [facility] [place] [place] [address] 01/26/2025 10:50 AM EDT Office [place] [address] Joan Deutsch, GE [facility] [place] [address] documented as of this encounter Visit Diagnoses Diagnosis Breast cancer, stage 2, right documented in this encounter Care Teams Product Manager Financial Services Relationship Specialty Start Date End Date Mariluz Watts MD [address] [place] [address] PCP - General 08/22/10 documented as of this encounter
--- OUTSIDE RECORDS SUMMARY | 2024-05-21 06:09 | XMS_ITS | Encounter Summary ---
Author Organization [facility] [place] [address] Care Team Providers Care Director Revenue Name Role Phone Mariluz Watts MD Primary Care Provider [phone] Encounter Details Date Type Department Care Team (Latest Contact Info) Description 09/18/2018 11:40 AM EST [place] [phone] Primary osteoarthritis of left knee; Pain in [...] PM EST Office [place] [phone] Paula Harris PA [facility] GENERAL SURGERY [place], [place] [phone] 01/26/2025 9:50 AM EDT Appointment Mammography/DXA at [facility] [place] [phone] Joan Deutsch [facility] [place] [address] 01/26/2025 10:50 AM EDT Office Visit General Surgery at [facility] [place] [phone] Joan Deutsch, [facility] [place] [address] documented as of this encounter Procedures Procedure Name Priority Date/Time Associated Diagnosis Comments ABORH RECHECK STATUS Routine 09/18/2018 12:41 PM EST HEMOGRAM Routine 09/18/2018 12:41 PM EST Primary osteoarthritis of left knee DIFFERENTIAL, AUTOMATED Routine 09/18/2018 12:41 PM EST Primary osteoarthritis of left knee TYPE AND SCREEN, SDP (FUTURE SURGERY, [facility] SAME DAY PROGRAM [...] 12:41 PM EST) ABORH Type Recheck Completed [facility] Blood specimen (specimen) 09/18/2018 12:41 PM EST 09/18/2018 12:59 PM EST Narrative Resulting Agency Comment Spec In Lab Shekhar Moody MD BLOOD BANK LAB ORDER SALVATORE Performing Organization Address [facility]/ZIP Co de Phone Number [facility] [place] [address] * (ABNORMAL) Reticulocyte Count (09/18/2018 12:41 PM EST) Pathologist [facility] Reticulocyte % 1.5 0.7 - 2.5 % [facility] Retic Abs # 0.060 0.020 - 0.110 x10(6)/mcL [facility] Immature Retic% 18.4(H) 0.5 - 13.8 % [facility] Reticulated Hgb 21.5(L) 29.8 - 39.4 pg [facility] Blood specimen (specimen) Venous Draw / Unknown 09/18/2018 12:41 PM EST 09/18/2018 1:12 PM EST Narrative Resulting Agency Comment Spec In Lab Vic Olivas MD HEMATOLOGY ORDERA BLES Performing Organization Address City/[facility]/ZIP Co de Phone Number [facility] [place] [address] * (ABNORMAL) Iron and TIBC (09/18/2018 12:41 PM EST) Iron 16(L) 30 - 150 mcg/dL [facility] TIBC 490(H) 250 - 450 mcg/dL [facility] Iron Saturation 3(L) 20 - 50 % [facility] Blood specimen (specimen) Venous Draw / Unknown 09/18/2018 12:41 PM EST 09/18/2018 1:19 PM EST Narrative Resulting Agency Comment Spec In Lab Vic Olivas MD CHEMISTRY ORDERAB LES [facility] [place] [address] * Differential, Automated (09/18/2018 12:41 PM EST) Neutrophil % 54.3 % [facility] Neutrophil Absolute 3.10 1.70 - 6.10 x10(3)/[facility] Lymph % 31.1 % [facility] Lymphocytes Abs 1.8 0.9 - 3.2 x10(3)/[facility] Monocyte % 10.0 % [facility] Monocyte Abs 0.6 0.3 - 0.9 x10(3)/[facility] Eos % 3.3 % [facility] Eosinophils Abs 0.2 0.0 - 0.4 x10(3)/[facility] Basophil % 1.1 % [facility] Baso Absolute 0.1 0.0 - 0.1 x10(3)/[facility] Immature Gran % 0.20 % [facility] Comment: Immature granulocytes(IG's)percentage and absolute count will include metamyelocytes, myelocytes, and promyelocytes. Blood smears from CBCs yielding IG's will be scanned manually for concordance. If this scan disagrees with the automated IG or if promyelocytes are noted, a manual differential will be performed. Immature Gran Absolute 0.01 0.00 - 0.04 x10(3)/[facility] Blood specimen (specimen) 09/18/2018 12:41 PM EST 09/18/2018 1:12 PM EST Narrative Resulting Agency Comment Spec In Lab Shekhar Moody MD HEMATOLOGY ORDERABLE S [facility] [place] [address] * (ABNORMAL) Hemogram (09/18/2018 12:41 PM EST) White Blood Cell 5.7 4.0 - 9.5 x10(3)/[facility] Red Blood Cell 4.41 4.00 - 5.21 x10(6)/[facility] Hemoglobin 9.9(L) 11.7 - 15.5 gm/dL [facility] Hematocrit 33.1(L) 35.7 - 45.8 % [facility] Mean Cell Volume 75.1(L) 82.6 - 94.4 fL [facility] Mean Cell Hemoglobin 22.4(L) 27.1 - 32.0 pg [facility] Mean Cell Hemoglobin Concentration 29.9(L) 31.7 - 35.0 gm/dL [facility] Platelet 286 145 - 357 x10(3)/[facility] RDW Standard Deviation 43.3 37.0 - 46.0 fL [facility] RDW coefficient of variation 15.9(H) 11.5 - 14.1 % [facility] Mean Platelet Volume 12.1 7.6 - 12.9 fL [facility] NRBC% auto 0.0 % [facility] NRBC Absolute 0.000 0.000 - 0.000 x10(3)/[facility] Blood specimen (specimen) 09/18/2018 12:41 PM EST 09/18/2018 1:12 PM EST Narrative Resulting Agency Comment Spec In Lab Shekhar Moody MD HEMATOLOGY ORDERABLE S [facility] [place] [address] * Antibody screen (09/18/2018 12:41 PM EST) Ab Screen Interp Negative [facility] Expires at [id number] on: 10/16/2018 [facility] Blood specimen (specimen) 09/18/2018 12:41 PM EST 09/18/2018 12:59 PM EST Narrative Resulting Agency Comment Spec In Lab Shekhar Moody MD BLOOD BANK LAB ORDER SALVATORE [facility] [place] [address] * ABO/Rh Typing (09/18/2018 12:41 PM EST) ABORH Type O Neg [facility] Blood specimen (specimen) 09/18/2018 12:41 PM EST 09/18/2018 12:59 PM EST Narrative Resulting Agency Comment Spec In Lab Shekhar Moody MD BLOOD BANK LAB ORDER SALVATORE Performing Organization Address [facility]/ZIP Co de Phone Number [facility] [address] * APTT (09/18/2018 12:41 PM EST) Partial Thromboplastin Time 35 25 - 37 sec [facility] Comment: The PTT is NOT appropriate for heparin monitoring. Use the Anti-Xa level for heparin monitoring (HEP UFH) or LMWH monitoring (HEP LMW). A PTT less than 37 seconds generally indicates adequate hemostasis. Blood specimen (specimen) 09/18/2018 12:41 PM EST 09/18/2018 1:12 PM EST Narrative Resulting Agency Comment Spec In Lab Shekhar Moody MD HEMATOLOGY ORDERABLE S Performing Organization Address City/[facility]/ZIP Co de Phone Number [facility] [place] [address] * Prothrombin Time (09/18/2018 12:41 PM EST) Prothrombin Time 11.5 9.4 - 12.5 sec [facility] International Normalization Ratio 1.0 [facility] Comment: An INR <2.0 [...] Lab Shekhar Moody MD HEMATOLOGY ORDERABLE S [facility] [address] * (ABNORMAL) Basic Metabolic Panel (non-fasting) (09/18/2018 12:41 PM EST) Glucose 94 65 - 199 mg/dL [facility] Comment:Diabetes: >=200 mg/d L plus symptoms Blood Urea Nitrogen 14 8 - 18 mg/dL [facility] Creatinine 0.64(L) 0.70 - 1.20 mg/dL [facility] Sodium 143 135 - 145 mmol/L [facility] Potassium 3.5 3.5 - 5.0 mmol/L [facility] Comment: Please note: ??Patients with WBC >100,000 may have falsely elevated Potassium levels. ??For accurate Potassium quantification in these patients send serum separator tube (gold top) for subsequent determinations. ??Contact the Clinical Chemistry Laboratory if there are any questions. Chloride 106 98 - 107 mmol/L [facility] Carbon Dioxide 25 22 - 31 mmol/L [facility] Anion Gap 12 5 - 15 mmol/L [facility] Calcium 9.5 8.5 - 10.5 mg/dL [facility] Est Glomerular Filtration Rate 90 >=60 mL/min/1. 73 m?? [facility] Comment: The eGFR was calculated using the CKD-EPI equation. As with all creatinine based estimates of kidney function, eGFR values calculated with the CKD-EPI equation are not accurate in patients with acute kidney failure, extremes of body mass or the acutely ill. http://[employer]/[facility] CITYnkf eGFR 105 >=60 mL/min/1. 73 m?? [facility] Comment: The eGFR was calculated using the CKD-EPI equation. As with all creatinine based estimates of kidney function, eGFR values calculated with the CKD-EPI equation are not accurate in patients with acute kidney failure, extremes of body mass or the acutely ill. http://[employer]/[facility]nkf Blood specimen (specimen) 09/18/2018 12:41 PM EST 09/18/2018 1:12 PM EST Narrative Resulting Agency Comment Spec In Lab Shekhar Moody MD CHEMISTRY ORDERABLES [facility] [place] [address] documented in this encounter Visit Diagnoses Diagnosis Primary osteoarthritis of left knee Primary localized osteoarthrosis, lower leg Pain in extremity, unspecified extremity documented in this encounter Care Teams Director Revenue Relationship Specialty Start Date End Date Mariluz Watts MD [address] [place] [address] PCP - General 08/22/10 documented as of this encounter
--- OUTSIDE RECORDS SUMMARY | 2024-05-21 06:09 | XMS_ITS | Encounter Summary ---
Author Organization [facility] [place] [address] Care Team Providers Care Voice Over Artist Name Role Phone Mariluz Watts MD Primary Care Provider [phone] Encounter Details Date Type Department Care Team (Late st Contact Info) Description 09/18/2018 11:59 PM EST Anesthesia [place] [phone] Juan Mei MD [facility] DR ANESTH[place]Y [place] [address] Anesthesia Record Procedure Summary Procedure Name Responsible [...] epi, into skin and subcutaneous tissues (CPT [id number]) left total hip arthroplasty, anterior Hueter approach with Rancocas table (CPT code 10656) Left hip intraoperative radiologic examination (CPT code 48643) Amicar infusion (5 g IV load, then 1g/hr x 3 hrs) Components Used: [place] Accolade stem, size 4, 127 degrees Trident PSLcup, 52 mm, solid 32 mm ID, alumina 32-4 mm alumina head ??? Hip pain ??? S/P Right ARSLAN 03/06/2005 (Sara) SURGERY DATE: 03/06/2005 SARA STEINER, KIAN Angel Surgical Procedure Performed: Right total hip arthroplasty, cementless, [id number] Components Used: [place] Trident 52 shell outer diameter Femoral head 32-4 mm [place] Accolade Femoral stem size 4, 127 deg [...] hypermobility syndrome ??? GI bleeding 03/25/2011 ??? 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, denies chest pain/SOB Anesthetic Plan: -Records for prior echo requested from [facility] with ETT, consented for regional [...] PM EST Office Visit General Surgery at [place] [phone] Paula Harris PA [facility] [place] [place] [address] 01/26/2025 9:50 AM EDT Appointment Mammography/DXA at [place] [phone] Joan Deutsch APRN [facility] [place] [place] [address] 01/26/2025 10:50 AM EDT Office Visit General Surgery at [place] [phone] Joan Deutsch APPAREL DESIGNER [facility] [place] [place] [address] documented as of this encounter Visit Diagnoses Not on filedocumented in this encounter Care Teams Voice Over Artist Relationship Specialty Start Date End Date Mariluz Watts MD [address] [place] [address] PCP - General 08/22/10 documented as of this encounter
--- OUTSIDE RECORDS SUMMARY | 2024-05-21 06:09 | XMS_ITS | Encounter Summary ---
[place] [address] Care Team Providers Care Oil Program Compliance Specialist Name Role Phone Mariluz Watts MD Primary Care Provider [phone] Encounter Details Date Type Department Care Team (Latest Contact Info) Description 11/28/2018 9:53 AM EST - 11/28/2018 10:15 AM [facility] Hospital Encounter [place] [address] Iron deficiency anemia, unspecified iron deficiency anemia [...] PM EST Office Visit General Surgery at [place] [phone] Paula Harris PA [facility] [place] [address] 01/26/2025 9:50 AM EDT Appointment Mammography/DXA at [place] [phone] Joan Deutsch APRN [facility] [place] [address] 01/26/2025 10:50 AM EDT Office [place] [phone] Joan Deutsch APRN [facility] [place] [address] (work) documented as of this encounter Procedures [...] (11/28/2018 10:20 AM EST) Plat estimate Normal [facility] RBC Morphology Abnormal [facility] Microcyte 1-5 /HPF [facility] Ovalocytes 1-5 /HPF [facility] Tear Cell 1-5 /HPF [facility] Erie Cells 1-5 /HPF [facility] Blood specimen (specimen) 11/28/2018 10:20 AM EST 11/28/2018 10:31 AM EST Narrative Resulting Agency Comment Spec In Lab Alvin Sin MD HEMATOLOGY ORDERABLE S [facility] [place] [address] * Differential, Automated (11/28/2018 10:20 AM EST) Neutrophil % 54.8 % [facility] Neutrophil Absolute 2.86 1.70 - 6.10 x10(3)/[facility] Lymph % 31.4 % [facility] Lymphocytes Abs 1.6 0.9 - 3.2 x10(3)/[facility] Monocyte % 11.1 % [facility] Monocyte Abs 0.6 0.3 - 0.9 x10(3)/[facility] Eos % 1.5 % [facility] Eosinophils Abs 0.1 0.0 - 0.4 x10(3)/[facility] Basophil % 1.0 % [facility] Baso Absolute 0.0 0.0 - 0.1 x10(3)/[facility] Immature Gran % 0.20 % [facility] Comment: Immature granulocytes(IG's)percentage and absolute count will include metamyelocytes, myelocytes, and promyelocytes. Blood smears from CBCs yielding IG's will be scanned manually for concordance. If this scan disagrees with the automated IG or if promyelocytes are noted, a manual differential will be performed. Immature Gran Absolute 0.01 0.00 - 0.04 x10(3)/[facility] Blood specimen (specimen) 11/28/2018 10:20 AM EST 11/28/2018 10:31 AM EST Narrative Resulting Agency Comment Spec In Lab Alvin Sin MD HEMATOLOGY ORDERABLE S Performing Organization Address City/State/[facility] Co de Phone Number [facility] [place] [address] * (ABNORMAL) Hemogram (11/28/2018 10:20 AM EST) White Blood Cell 5.2 4.0 - 9.5 x10(3)/ L [facility] Red Blood Cell 5.74(H) 4.00 - 5.21 x10(6)/[facility] Hemoglobin 14.1 11.7 - 15.5 gm/dL [facility] NRBC% auto 0.0 % [facility] NRBC Absolute 0.000 0.000 - 0.000 x10(3)/mc L [facility] Blood specimen (specimen) 11/28/2018 10:20 AM EST 11/28/2018 10:31 AM EST Narrative Resulting Agency Comment Spec In Lab Alvin Sin MD HEMATOLOGY ORDERABLE S Performing Organization Address City/[facility] Co de Phone Number [facility] [place] [address] * Ferritin (11/28/2018 10:20 AM EST) [facility] Signature Ferritin 110 30 - 400 ng/mL [facility] Comment: Pediatric reference ranges not verified at [facility], interpret with caution. Reference ranges for females greater than 50 years of age approach values for men, i.e., 30-400 ng/mL. Blood specimen (specimen) 11/28/2018 10:20 AM EST 11/28/2018 10:35 AM EST Narrative Resulting Agency Comment Spec In Lab Charity De La Cruz MD CHEMISTRY ORDERABL ES Performing Organization Address City/[facility]/ZIP Co de Phone Number [facility] [address] documented in this encounter Visit Diagnoses Diagnosis Iron deficiency anemia, unspecified iron deficiency anemia type documented in this encounter Care Teams Oil Program Compliance Specialist Relationship Specialty Start Date End Date Mariluz Watts MD [address] [place] [address] PCP - General 08/22/10 documented as of this encounter
--- OUTSIDE RECORDS SUMMARY | 2024-05-21 06:09 | XMS_ITS | Encounter Summary ---
[place] [address] Care Team Providers Care Fabric Sourcer Name Role Phone Mariluz Watts MD Primary Care Provider [phone] Reason for Referral * Surgical (Routine) - Specialty Diagnoses / Procedures Referred By John lyons Referred To Contact Anesthesiology Diagnoses Primary osteoarthritis of left knee Shekhar Moody MD [facility] [place] [address] [place] [address] Referral ID Status Reason Start Date Expiration Date V isits Requested Visits Authorized [id number] Consult, Test & Treat 07/28/2018 07/28/2019 1 1 Reason for Visit * Reason Comments Foot Pain right Encounter Details Date Type Department Care Team (Latest Contact Info) Description 07/28/2018 9:00 AM EDT Office [place] [phone] Shekhar Moody MD [facility] [place] [address] Primary osteoarthritis of left knee (Primary Dx); [...] pain 01/25/2012 ??? S/P Right ARSLAN 03/06/2005 (rAcadio) 01/25/2012 ??? Rosacea 03/25/2011 ??? GI bleeding [...] PM EST Office [place] [phone] Paula Harris PA [facility] [place] [address] 01/26/2025 9:50 AM EDT Appointment Mammography/[place] [phone] Joan Deutsch APRN [facility] GENERAL SURGERY [place], [place] [phone] 01/26/2025 10:50 AM EDT Office [place] [phone] Joan Deutsch APRN [facility] [place] [address] Scheduled Referrals Name Type Priority Associated Diagnoses Orde r Schedule Referral to General Anesthesiology Outpatient Referral Routine Primary osteoarthritis of left knee Ordered: 07/28/2018 documented as of this encounter Results * APTT (09/18/2018 12:41 PM EST) Partial Thromboplastin Time 35 25 - 37 sec [facility] Comment: The PTT is NOT appropriate for heparin monitoring. Use the Anti-Xa level for heparin monitoring (HEP UFH) or LMWH monitoring (HEP LMW). A PTT less than 37 seconds generally indicates adequate hemostasis. Blood specimen (specimen) 09/18/2018 12:41 PM EST 09/18/2018 1:12 PM EST Narrative Resulting Agency Comment Spec In Lab Shekhar Moody MD HEMATOLOGY ORDERABLE S [facility] [place] [address] * Prothrombin Time (09/18/2018 12:41 PM EST) Prothrombin Time 11.5 9.4 - 12.5 sec [facility] International Normalization Ratio 1.0 MADDI BHARATH [...] Lab Shekhar Moody MD HEMATOLOGY ORDERABLE S [facility] [place] [address] * (ABNORMAL) Basic Metabolic Panel (non-fasting) (09/18/2018 12:41 PM EST) Glucose 94 65 - 199 mg/dL [facility] Comment:Diabetes: >=200 mg/d L plus symptoms Blood Urea Nitrogen 14 8 - 18 mg/dL [facility] Creatinine 0.64(L) 0.70 - 1.20 mg/dL [facility] Sodium 143 135 - 145 mmol/L [facility] Potassium 3.5 3.5 - 5.0 mmol/L [facility] Comment: Please note: ??Patients with WBC >100,000 may have falsely elevated Potassium levels. ??For accurate Potassium quantification in these patients send serum separator tube (gold top) for subsequent determinations. ??Contact the Clinical Chemistry Laboratory if there are any questions. Chloride 106 98 - 107 mmol/L [facility] Carbon Dioxide 25 22 - 31 mmol/L [facility] Anion Gap 12 5 - 15 mmol/L [facility] Calcium 9.5 8.5 - 10.5 mg/dL [facility] Est Glomerular Filtration Rate 90 >=60 mL/min/1. 73 m?? [facility] Comment: The eGFR was calculated using the CKD-EPI equation. As with all creatinine based estimates of kidney function, eGFR values calculated with the CKD-EPI equation are not accurate in patients with acute kidney failure, extremes of body mass or the acutely ill. http://[employer]/[facility]nk[facility] eGFR 105 >=60 mL/min/1. 73 m?? [facility] Comment: The eGFR was calculated using the CKD-EPI equation. As with all creatinine based estimates of kidney function, eGFR values calculated with the CKD-EPI equation are not accurate in patients with acute kidney failure, extremes of body mass or the acutely ill. http://[employer]/[facility] Blood specimen (specimen) 09/18/2018 12:41 PM EST 09/18/2018 1:12 PM EST Narrative Resulting Agency Comment Spec In Lab Shekhar Moody MD CHEMISTRY ORDERABLES Performing Organization Address [facility] Co de Phone Number [facility] [place] [address] * EKG 12 Lead (09/18/2018 11:55 AM EST) Ventricular rate 74 BPM MUSE SYSTEM Atrial Rate 74 BPM MUSE SYSTEM P-R Interval 202 ms MUSE SYSTEM QRS Duration 84 ms MUSE SYSTEM Q-T Interval 372 ms MUSE SYSTEM QTC Calculated (Bezet) 412 ms MUSE SYSTEM Calculated P [place] 57 degrees MUSE SYSTEM Calculated R [place] -31 degrees MUSE SYSTEM Calculated T [place] 52 degrees MUSE SYSTEM INTERPRETATION Sinus rhythm with Premature supraventricular complexes Left axis deviation Abnormal ECG When compared with ECG of 08-JUL-2012 13:37, Premature supraventricular complexes are now Present Confirmed by MD Sree, Shivam ([id number]) on 09/18/2018 4:27:15 PM MUSE SYSTEM 09/18/2018 11:5 5 AM EST 09/18/2018 4:27 PM EST Shekhar Moody MD ECG ORDERABLES Performing Organization Address [facility] Co de Phone Number MUSE SYSTEM documented in this encounter Visit Diagnoses Diagnosis Primary osteoarthritis of left knee- Primary Primary localized osteoarthrosis, lower leg Osteoarthritis of right midfoot Pain in extremity, unspecified extremity documented in this encounter Care Teams Fabric Sourcer Relationship Specialty Start Date End Date Mariluz Watts MD [address] [place] [address] PCP - General 08/22/10 documented as of this encounter
--- OUTSIDE RECORDS SUMMARY | 2024-05-21 06:09 | XMS_ITS | Encounter Summary ---
Author Organization [facility] [place] [address] Care Team Providers Care Primer Expeditor And Drier Name Role Phone Mariluz Watts MD Primary Care Provider [phone] Encounter Details Date Type Department Care Team (Latest Contact Info) Description 07/03/2018 9:46 AM EDT - 07/03/2018 11:59 PM EDT Hospital Encounter XRay at [address] [place] [address] Shekhar Moody MD [facility] [place] [address] Chronic pain of both knees Discharge Disposition: [...] PM EST Office [place] [address] Paula Harris PA [facility] [place] [address] 01/26/2025 9:50 AM EDT Appointment Mammography/[place] [address] Joan Deutsch APRN [facility] [place] [address] 01/26/2025 10:50 AM EDT Office [place] [address] Joan Deutsch APRN [facility] [place] [address] documented as of this encounter Procedures Procedure Name Priority Date/Time Associated Diagnosis Comments XR KNEE STANDING ALIGNMENT AP LAT [place] SKYLINE BILAT Routine 07/03/2018 10:36 AM EDT Chronic pain of both knees documented in this encounter Results * XR Knee Standing Alignment AP Lat [place] Locust Bilat (07/03/2018 10:36 AM EDT) Anatomical Region [...] knees documented in this encounter Care Teams Primer Expeditor And Drier Relationship Specialty Start Date End Date Mariluz Watts MD [address] [facility] 1 [place] [address] PCP - General 08/22/10 documented as of this encounter
--- OUTSIDE RECORDS SUMMARY | 2024-05-21 06:09 | XMS_ITS | Encounter Summary ---
Author Organization [facility] [place] [address] Care Team Providers Care Side Laster Staple Name Role Phone Mariluz Watts MD Primary Care Provider [phone] Encounter Details Date Type Department Care Team (Latest Contact Info) Description 12/11/2016 7:33 AM EDT - 12/11/2016 11:59 PM EDT Hospital Encounter XRay at [address] [place] [address] Abrahan Merlos MD [facility] HEMATOLOGY/[place] [address] Osteopenia Discharge Disposition: Home Social History Tobacco [...] 0.5 mg Tablet 12/07/2016 05/01/2018 LACTOBAC CMB #[id number] ORAL Take 1 tablet by mouth daily. 12/24/2012 05/01/2018 Lysine 500 mg Tablet Take 1 tablet by mouth daily. Reported on 12/11/2016 05/01/2018 multivitamin (THERAGRAN) tablet Take 1 tablet by mouth daily. Reported on 12/11/2016 07/03/2018 ammonium lactate (LAC-HYDRIN) 12 % lotionIndications:SK (seborrheic keratosis) Apply topically as needed for Dry Skin. Use to rough spots on thighs. 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 medicinal plant picker both scripts 02/02/14 400 g 10 [...] PM EST Office [place] [phone] Paula Harris PA [facility] [place] [address] 01/26/2025 9:50 AM EDT Appointment Mammography/[place] [address] Joan Deutsch APRN [facility] [place] [address] 01/26/2025 10:50 AM EDT Office Visit [place] [address] Joan Deutsch APRN [facility] [place] [address] documented as of this encounter Procedures Procedure [...] BMD measurements and plots are available in [employer] under the imaging tab. Paper copies will be sent to providers without [employer] access. If you have received this report without the data sheet and do not have access to [employer], please contact Radiology Fine Dining Server at [phone] Saturday thru Saturday 8am-4pm. Narrative 12/11/2016 2:52 [...] not haveaccess to E-DH, please contact Radiology Fine Dining Server at [phone] Saturday thruFrid 8am-4pm. Abrahan Merlos MD IMG DEXA ORDERABLES documented in this encounter Visit Diagnoses Diagnosis Osteopenia Disorder of bone and cartilage, unspecified documented in this encounter Care Teams Side Laster Staple Relationship Specialty Start Date End Date Mariluz Watts MD [address] [place] [address] PCP - General 08/22/10 documented as of this encounter
--- OUTSIDE RECORDS SUMMARY | 2024-05-21 06:09 | XMS_ITS | Encounter Summary ---
Author Organization [facility] [place] [address] Care Team Providers Care Onyx Chip Terrazzo Worker Name Role Phone Mariluz Watts MD Primary Care Provider [phone] Encounter Details Date Type Department Care Team (Late st Contact Info) Description 11/06/2018 1:00 PM EST - 11/06/2018 2:00 PM EST Surgery [place] [address] Charisma Aguayo MD [facility] [place] [address] EGD, UPPER GI ENDOSCOPY (WRVU 2.09) Social [...] better as expected. Saturday-Saturday Same Day Endo [phone] 7a-8p Otherwise contact [phone] and ask to speak to the ammunition storage superintendent supervisor continuous weld pipe mill Follow-up care is a hanna part of [...] PM EST Office [place] [address] Paula Harris PA [facility] [place] [address] 01/26/2025 9:50 AM EDT Appointment Mammography/[place] [address] Joan Deutsch APRN [facility] SURGERY [place], [place] [address] 01/26/2025 10:50 AM EDT Office Visit [place] [address] Joan Deutsch, GE [facility] [place] [address] documented as of this encounter Procedures Procedure Name Priority Date/Time Associated Diagnosis Comments EGD, UPPER GI ENDOSCOPY (WRVU 2.09) 11/06/2018 1:07 PM EST Anemia UPPER GI ENDOSCOPY Routine 11/06/2018 12 :33 PM EST documented in this encounter Results * UPPER GI ENDOSCOPY (11/06/2018 12:33 PM EST) [facility] UPPER GI ENDOSCOPY [facility] Endoscopy Procedure Date: 11/06/2018 12:33 PM ? Patient Name: Diamond Gaming ? Date of : 1945 ? Age: 72 ? Order #: [id number] ? Instrument Name: [id number] ? Procedure: ? Upper GI endoscopy Indications: [...] RN) documented in this encounter Care Teams Onyx Chip Terrazzo Worker Relationship Specialty Start Date End Date Mariluz Watts MD [address] [facility] 1 [place] [address] PCP - General 08/22/10 documented as of this encounter
--- OUTSIDE RECORDS SUMMARY | 2024-05-21 06:09 | XMS_ITS | Encounter Summary ---
Author Organization [facility] [place] [address] Care Team Providers Care Greenhouse Superintendent Name Role Phone Mariluz Watts MD Primary Care Provider [phone] Reason for Visit * Reason Comments Follow-up Encounter Details Date Type Department Care Team (Late st Contact Info) Description 12/12/2017 2:00 PM EDT Office Visit Hematology [place] [address] Abrahan Merlos MD [facility] HEMATOLOGY/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 She takes 3000 units of Vitamin [...] Dexa scan in 2019. Abrahan Merlos MD network analyst in Hematology-Oncology documented in this encounter Plan of Treatment Upcoming Encounters Date Type Department Care Team (Late st Contact Info) Description 11/16/2024 1:00 PM EST Office [place] [address]-1000 Paula Harris PA [facility] [place] [address] 01/26/2025 9:50 AM EDT Appointment Mammography[place] [address]1000 Joan Deutsch APRN [facility] [place] [address] 01/26/2025 10:50 AM EDT Office [place] [address] Joan Deutsch APRN [facility] [place] [address] documented as of this encounter Visit Diagnoses Diagnosis Malignant neoplasm of right breast, stage 2 documented in this encounter Care Teams Greenhouse Superintendent Relationship Specialty Start Date End Date Mariluz Watts MD [address] [place] [address] [address] [place] [address] PCP - General 08/22/10 documented as of this encounter
--- OUTSIDE RECORDS SUMMARY | 2024-05-21 06:09 | XMS_ITS | Encounter Summary ---
Author Organization [facility] [place] [address] Care Team Providers Care Transferrer Name Role Phone Mariluz Watts MD Primary Care Provider [phone] Encounter Details Date Type Department Care Team (Late st Contact Info) Description 09/18/2018 12:15 PM EST [place] [address]1000 Social History Tobacco Use Types Packs/Day Years [...] PM EST Office [place] [address] Paula Harris, PA [facility] [place] [address] 01/26/2025 9:50 AM EDT Appointment Mammography/[place] [address] Joan Deutsch, [facility] [place] [address] 01/26/2025 10:50 AM EDT Office [place] [address]1000 Joan Deutsch, [facility] [place] [address] documented as of this encounter Visit Diagnoses Not on filedocumented in this encounter Care Teams Transferrer Relationship Specialty Start Date End Date Mariluz Watts MD [address] [place] [address] [address] [place] [address] PCP - General 08/22/10 documented as of this encounter
--- OUTSIDE RECORDS SUMMARY | 2024-05-21 06:09 | XMS_ITS | Encounter Summary ---
[place] [address] Care Team Providers Care Linter Tender Name Role Phone Mariluz Watts MD Primary Care Provider [phone] Encounter Details Date Type Department Care Team (Latest Contact Info) Description 09/18/2018 11:40 AM EST Clinical [place] [address] Primary osteoarthritis of left knee Social History [...] PM EST Office [place] [address] Paula Harris PA [facility] [place] [address] 01/26/2025 9:50 AM EDT Appointment Mammography[place] [address] [facility] [place] [address] 01/26/2025 10:50 AM EDT Office [place] [address] Joan Deutsch, [facility] [place] [address] documented as of this encounter Procedures Procedure [...] (Bezet) 412 ms MUSE SYSTEM Calculated P [place] 57 degrees MUSE SYSTEM Calculated R [place] -31 degrees MUSE SYSTEM Calculated T [place] 52 degrees MUSE SYSTEM INTERPRETATION Sinus rhythm [...] leg documented in this encounter Care Teams Linter Tender Relationship Specialty Start Date End Date Mariluz Watts MD [address] [place] [address] PCP - General 08/22/10 documented as of this encounter
--- OUTSIDE RECORDS SUMMARY | 2024-05-21 06:09 | XMS_ITS | Encounter Summary ---
Author Organization [facility] [place] [address] Care Team Providers Care Pathology Technician Name Role Phone Mariluz Watts MD Primary Care Provider [phone] Encounter Details Date Type Department Care Team (Latest Contact Info) Description 12/12/2017 12:16 PM EDT - 12/12/2017 11:59 PM EDT Hospital [place] [address] Brayden Chambers MD [facility] [place] [address] History of breast cancer Discharge Disposition: Home [...] (XANAX) 0.5 mg Tablet 12/07/2016 05/01/2018 [place] #[id number] ORAL Take 1 tablet by mouth daily. 12/24/2012 05/01/2018 Lysine 500 mg Tablet Take 1 tablet by mouth daily. Reported on 12/11/2016 05/01/2018 multivitamin (THERAGRAN) tablet Take 1 tablet by mouth daily. Reported on 12/11/2016 07/03/2018 ammonium lactate (LAC-HYDRIN) 12 % lotionIndications:SK (seborrheic keratosis) Apply topically as needed for Dry Skin. Use to rough spots on thighs. 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 draft roller picker both scripts 02/02/14 400 g 10 [...] PM EST Office [place] [address] Paula Harris PA [facility] [place] [place] [address] 01/26/2025 9:50 AM EDT Appointment Mammography/[place] [address] Joan Deutsch APRN [facility] [place] [address] 01/26/2025 10:50 AM EDT Office [place] [address] Joan Deutsch APRN [facility] [place] [address] documented as of this encounter Procedures Procedure [...] BIRADS CATEGORY 2: BENIGN FINDINGS * ??[employer] and The Society of [...] breast documented in this encounter Care Teams Pathology Technician Relationship Specialty Start Date End Date Mariluz Watts MD [address] [place] [address] PCP - General 08/22/10 documented as of this encounter
--- OUTSIDE RECORDS SUMMARY | 2024-05-21 06:09 | XMS_ITS | Encounter Summary ---
[place] [address] Care Team Providers Care Content Producer Name Role Phone Mariluz Watts MD Primary Care Provider [phone] Reason for Visit * Reason Comments Anemia Encounter Details Date Type Department Care Team (Latest Contact Info) Description 10/17/2018 9:30 AM EST - 10/17/2018 11:59 PM EST Hospital Encounter Hematology [place] [address] Iron deficiency anemia, unspecified iron deficiency anemia [...] PM EST Office Visit General Surgery at [place] [phone] Paula Harris PA [facility] [place] [address] 01/26/2025 9:50 AM EDT Appointment Mammography/DXA at [place] [phone] Joan Deutsch CASTING OPERATOR [facility] [place] [address] 01/26/2025 10:50 AM EDT Office [place] [address] Joan Deutsch CASTING OPERATOR [facility] [place] [address] documented as of this encounter Visit Diagnoses [...] mg documented in this encounter Care Teams Content Producer Relationship Specialty Start Date End Date Mariluz Watts MD [address] [facility] 1 [place] [address] PCP - General 08/22/10 documented as of this encounter
--- OUTSIDE RECORDS SUMMARY | 2024-05-21 06:09 | XMS_ITS | Encounter Summary ---
[place] [address] Care Team Providers Care Painter Drum Name Role Phone Mariluz Watts MD Primary Care Provider [phone] Encounter Details Date Type Department Care Team (Latest Contact Info) Description 11/28/2018 10:16 AM EST - 11/28/2018 10:20 AM [facility] Hospital Encounter Hematology [place] [address] Discharge Disposition: Home Social History Tobacco Use [...] PM EST Office [place] [address] Paula Harris PA [facility] [place] [address] 01/26/2025 9:50 AM EDT Appointment Mammography/DXA at [place] [phone] Joan Deutsch APRN [facility] [place] [address] 01/26/2025 10:50 AM EDT Office Visit General Surgery at [place] [phone] Joan Deutsch APRN [facility] [place] [address] documented as of this encounter Procedures Procedure [...] AM EST) Hepatitis C Antibody Negative Negative [facility] Blood specimen (specimen) Venous Draw / Unknown 11/28/2018 10:20 AM EST 11/28/2018 10:51 AM EST Narrative Resulting Agency Comment Spec In Lab Mariluz Watts MD CHEMISTRY ORDERABLES Performing Organization Address City/[facility]/ZIP Co de Phone Number [facility] [place] [address] * Hepatitis B Core Antibody, Total (11/28/2018 10:20 AM EST) Hepatitis B Core Antibody Negative Negative [facility] Blood specimen (specimen) Venous Draw / Unknown 11/28/2018 10:20 AM EST 11/28/2018 10:51 AM EST Narrative Resulting Agency Comment Spec In Lab Mariluz Watts MD CHEMISTRY ORDERABLES Performing Organization Address City/[facility]/ZIP Co de Phone Number [facility] [place] [address] * Hepatitis B Surface Antibody (11/28/2018 10:20 AM EST) Hepatitis B Surface Antibody, Quantitative 6.5 IU/L [facility] Comment: HepB Surface Ab Quant: Unvaccinated: < 8.5 IU/L Vaccinated: > 11.5 IU/L Hepatitis B Surface Antibody Negative [facility] Comment: Patient is presumed to be not vaccinated or immune to HBV infection. Expected Results: Vaccinated: Positive Unvaccinated: Negative Blood specimen (specimen) Venous Draw / Unknown 11/28/2018 10:20 AM EST 11/28/2018 10:51 AM EST Narrative Resulting Agency Comment Spec In Lab Mariluz Watts MD CHEMISTRY ORDERABLES Performing Organization Address City/[facility]/ZIP Co de Phone Number [facility] [place] [address] * Hepatitis B Surface Antigen (11/28/2018 10:20 AM EST) Hepatitis B Surface Antigen Negative Negative [facility] Blood specimen (specimen) Venous Draw / Unknown 11/28/2018 10:20 AM EST 11/28/2018 10:51 AM EST Narrative Resulting Agency Comment Spec In Lab Mariluz Watts MD CHEMISTRY ORDERABLES Performing Organization Address City/[facility] Co de Phone Number [facility] [place] [address] documented in this encounter Visit Diagnoses Not on filedocumented in this encounter Care Teams Painter Drum Relationship Specialty Start Date End Date Mariluz Watts MD [address] [place] [address] PCP - General 08/22/10 documented as of this encounter
--- OUTSIDE RECORDS SUMMARY | 2024-05-21 06:09 | XMS_ITS | Encounter Summary ---
[place] [address] Care Team Providers Care Mis Director Name Role Phone Mariluz Watts MD Primary Care Provider [phone] Encounter Details Date Type Department Care Team (Late st Contact Info) Description 10/13/2018 Telephone [place] [address] Milena [place] Social History Tobacco Use Types [...] - 10/13/2018 12:29 PM EST Diamond Gaming [id number] Diagnosis: Anemia 1. Have you ever had a EGD before? [] YES [x] NO If Yes, Date of Last [place]: If yes, did you have any problems with the procedure? [] YES [] NO Explain: What type of sedation was used: 2. Do you take any Blood Thinners? [] YES [x] NO If Yes, type: 3. Do you have a Pacemaker or Defibrillator device? [] YES [x] NO If Yes send inIntellecap message to [employer] ENDO DEVICE CHECK 4. Are you a [...] NO 11. You must have a responsible republican stay at the facility during your procedure [...] PM EST Office Visit General Surgery at [place] [phone] Paula Harris PA [facility] [place] [address] 01/26/2025 9:50 AM EDT Appointment Mammography/DXA at [place] [phone] Joan Deutsch [facility] [place] [address] 01/26/2025 10:50 AM EDT Office Visit General Surgery at [place] [phone] Joan Deutsch [facility] [place] [address] documented as of this encounter Visit Diagnoses Not on filedocumented in this encounter Care Teams Mis Director Relationship Specialty Start Date End Date Mariluz Watts MD [address] [place] [address] PCP - General 08/22/10 documented as of this encounter
--- OUTSIDE RECORDS SUMMARY | 2024-05-21 06:09 | XMS_ITS | Encounter Summary ---
Author Organization [facility] [place] [address] Care Team Providers Care Recreation Professor Name Role Phone Mariluz Watts MD Primary Care Provider [phone] Encounter Details Date Type Department Care Team (Latest Contact Info) Description 11/06/2018 11:48 AM EST - 11/06/2018 3:17 PM EST Hospital Encounter [place] [address] Charisma Aguayo MD [facility] [place] [address] Discharge Disposition: Home Social History Tobacco Use [...] better as expected. Saturday-Saturday Same Day Endo [phone]-8p Otherwise contact [phone] and ask to speak to the tire duster full fashioned garment knitter Follow-up care is a hanna part of [...] PM EST Office Visit [place] [address] Paula Harris, PA [facility] [place] [address] 01/26/2025 9:50 AM EDT Appointment Mammography/[place] [address] Joan Deutsch APRN [facility] GENERAL SURGERY [place], [place] [address]56 01/26/2025 10:50 AM EDT Office Visit [place] [address] Joan Deutsch, GE [facility] [place] [address] documented as of this encounter Procedures Procedure Name Priority Date/Time Associated Diagnosis Comments EGD, UPPER GI ENDOSCOPY (WRVU 2.09) 11/06/2018 1:07 PM EST Anemia UPPER GI ENDOSCOPY Routine 11/06/2018 12 :33 PM EST documented in this encounter Results * UPPER GI ENDOSCOPY (11/06/2018 12:33 PM EST) [facility] Signature UPPER GI ENDOSCOPY [facility] Endoscopy Procedure Date: 11/06/2018 12:33 PM ? Patient Name: Diamond Gaming ? Date of : 1945 ? Age: 72 ? Order #: [id number] ? Instrument Name: [id number] ? Procedure: ? Upper GI endoscopy Indications: [...] RN) documented in this encounter Care Teams Recreation Professor Relationship Specialty Start Date End Date Mariluz Watts MD [address] [place] [address] PCP - General 08/22/10 documented as of this encounter
--- OUTSIDE RECORDS SUMMARY | 2024-05-21 06:09 | XMS_ITS | Encounter Summary ---
Author Organization [facility] [place] [address] Care Team Providers Care Fiberglass Boat Maker Name Role Phone Mariluz Watts MD Primary Care Provider [phone] Encounter Details Date Type Department Care Team (Late st Contact Info) Description 11/28/2018 Notes Only Hematology [place] [address] Charity De La Cruz MD [facility] DR HEMATOLOGY [place] [address] Social History Tobacco Use Types Packs/Day Years [...] encounter Progress Notes * Charity De La Curz MD - 11/28/2018 1:43 PM EST Images from the original note were not included. [facility] [place] [address] HEMATOLOGY FOLLOW UP Kimi has completed her planned course of IV iron infusions and an EGD was performed that showed a big hiatal hernia with Oli erosions, likely the source of blood loss and iron deficiency. Labs today show resolution of anemia and sikh of iron stores: Results for DIAMOND GAMING [...] 1. Continue oral iron supplementation for the terminal operations manager to keep up with chronic GI loss. [...] remain available for assistance as necessary. Charity D eLa Cruz MD Pluck Separator, [facility] documented in this encounter Plan of Treatment Upcoming Encounters Date Type Department Care Team (Late st Contact Info) Description 11/16/2024 1:00 PM EST Office Visit General Surgery at [place] [address] Paula Harris PA [facility] [place] [address] 01/26/2025 9:50 AM EDT Appointment Mammography/[place] [address] Joan Deutsch [facility] [place] [address] 01/26/2025 10:50 AM EDT Office [place] [address] Joan Deutsch, [facility] [place] [address] documented as of this encounter Visit Diagnoses Not on filedocumented in this encounter Care Teams Fiberglass Boat Maker Relationship Specialty Start Date End Date Mariluz Watts MD [address] [place] [address] PCP - General 08/22/10 documented as of this encounter
--- OUTSIDE RECORDS SUMMARY | 2024-05-21 06:09 | XMS_ITS | Encounter Summary ---
Author Organization [facility] [place] [address] Care Team Providers Care Batting Machine Operator Insulation Name Role Phone Mariulz Watts MD Primary Care Provider [phone] Reason for Visit * Reason Comments Skin Lesion Encounter Details Date Type Department Care Team (Late st Contact Info) Description 08/14/2018 11:30 AM EST Office Visit Dermatology at [facility] [address] [place] [address] Gardenia Cruz MD [facility] [place] [address] Florina Lechuga PA [facility] [place] [address] Lentigines; Seborrheic keratoses; Seborrheic keratosis, inflamed; Blue [...] weeks. Please contact the Dermatology clinic at [phone] if the lesion has not fully resolved [...] Reviewed and signed by Florina Lechuga PA-C [facility] Patient seen in conjunction with staff hospital receptionist: Gardenia Cruz MD Section of Dermatology [facility] documented in this encounter Plan of Treatment Upcoming Encounters Date Type Department Care Team (Late st Contact Info) Description 11/16/2024 1:00 PM EST Office [place] [address] Paula Harris PA [facility] [place] [address] 01/26/2025 9:50 AM EDT Appointment Mammography/[place] [address] Joan Deutsch, [facility] [place] [address] 01/26/2025 10:50 AM EDT Office [place] [address] Joan Deutsch, [facility] [place] [address] documented as of this encounter Visit Diagnoses Diagnosis Lentigines Other dyschromia Seborrheic keratoses Other seborrheic keratosis Seborrheic keratosis, inflamed Inflamed seborrheic keratosis Blue nevus Sebaceous hyperplasias of face Other specified disease of sebaceous glands Rosacea documented in this encounter Care Teams Batting Machine Operator Insulation Relationship Specialty Start Date End Date Mariluz Watts MD [address] [place] [address] PCP - General 08/22/10 documented as of this encounter
--- OUTSIDE RECORDS SUMMARY | 2024-05-21 06:09 | XMS_ITS | Encounter Summary ---
[place] [address] Care Team Providers Care Senior Application Programmer Name Role Phone Mariluz Watts MD Primary Care Provider [phone] Reason for Visit * Reason Comments Anemia Encounter Details Date Type Department Care Team (Latest Contact Info) Description 10/31/2018 9:00 AM EST - 10/31/2018 11:59 PM EST Hospital Encounter [place]ology [place] [address] Iron deficiency anemia, unspecified iron deficiency anemia [...] PM EST Office Visit General Surgery at [place] [phone] Paula Harris PA [facility] [place] [address] 01/26/2025 9:50 AM EDT Appointment Mammography/DXA at [place] [phone] Joan Deutsch ENERGY AUDIT ADVISOR [facility] [place] [address] 01/26/2025 10:50 AM EDT Office [place] [phone] Joan Deutsch ENERGY AUDIT ADVISOR [facility] [place] [address] documented as of this encounter Visit Diagnoses [...] mg documented in this encounter Care Teams Senior Application Programmer Relationship Specialty Start Date End Date Mariluz Watts MD [address] [facility] [place] [address] PCP - General 08/22/10 documented as of this encounter
--- OUTSIDE RECORDS SUMMARY | 2024-05-21 06:10 | XMS_ITS | Encounter Summary ---
Author Organization [place] [address] Care Team Providers Care Server Administrator Name Role Phone Mariluz Watts MD Primary Care Provider [phone] Reason for Referral * Consultation (Routine) - Closed Specialty Diagnoses / Procedures Referred By John lyons Referred To Contact Orthopaedics Diagnoses Right foot pain Scar Aviles II [facility] [place] [address] [facility] [address] [place] [phone] Referral ID Status Reason Start Date Expiration Date V isits Requested Visits Authorized [id number] Closed Consult, Test & Treat 05/16/2016 05/16/2017 1 1 Encounter Details Date Type Department Care Team (Latest Contact Info) Description 05/16/2016 9:00 AM EDT Office [place] [phone] Scar Aviles II [facility] [place] [address] Primary osteoarthritis involving multiple joints; Right foot [...] PM EST Office Visit General Surgery at [place] [phone] Paula Harris, PA [facility] [place] [address] 01/26/2025 9:50 AM EDT Appointment Mammography/DXA at [place] [phone] Joan Deutsch, [facility] [place] [address] 01/26/2025 10:50 AM EDT Office Visit General Surgery at [place] [phone] Joan Deutsch, PATIENT INFORMATION COORDINATOR [facility] [place] [address] Scheduled Referrals Name Type Priority Associated Diagnoses Orde r Schedule Referral to Podiatry Outpatient Referral Routine Right foot pain Ordered: 05/16/2016 documented as of this encounter Visit Diagnoses Diagnosis Primary osteoarthritis involving multiple joints Right foot pain Pain in limb documented in this encounter Care Teams Server Administrator Relationship Specialty Start Date End Date Mariluz Watts MD [address] [place] [address] PCP - General 08/22/10 documented as of this encounter
--- OUTSIDE RECORDS SUMMARY | 2024-05-21 06:10 | XMS_ITS | Encounter Summary ---
Author Organization [facility] [place] [address] Care Team Providers Care Deputy Chief Magistrate Name Role Phone Mariluz Watts MD Primary Care Provider [phone] Encounter Details Date Type Department Care Team (Latest Contact Info) Description 12/21/2014 1:21 PM EDT - 12/21/2014 11:59 PM EDT Hospital Encounter Hematology [place] [address] CLINIC, DR KATARINA Merlos, Abrahan Chavarria MD [facility] HEMATOLOGY/[place] [address] Discharge Disposition: Home Social History Tobacco Use [...] Refills Start Date End Date LACTOBAC CMB #1-[id number] ORAL Take 1 tablet by mouth daily. [...] PM EST Office [place] [phone] Paula Harris PA [facility] [place] [place] [address] 01/26/2025 9:50 AM EDT Appointment Mammography/[place] [address] Joan Deutsch, [facility] [place] [address] 01/26/2025 10:50 AM EDT Office [place] [phone] Joan Deutsch, [facility] [place] [address] documented as of this encounter Visit Diagnoses Not on filedocumented in this encounter Care Teams Deputy Chief Magistrate Relationship Specialty Start Date End Date Mariluz Watts MD [address] [place] [address] PCP - General 08/22/10 documented as of this encounter
--- OUTSIDE RECORDS SUMMARY | 2024-05-21 06:10 | XMS_ITS | Encounter Summary ---
Author Organization [facility] [address] Care Team Providers Care Manager People Name Role Phone Mariluz Watts MD Primary Care Provider [phone] Encounter Details Date Type Department Care Team (Latest Contact Info) Description 09/14/2015 11:00 AM EST Office [place] [address] Rosales Bowman MD [facility] [place] [address] History of nephrolithiasis Social History Tobacco Use [...] rule out a UTI, she went to [facility] 5 [facility] ago and had a u/a [...] PM EST Office Visit [place] [address] Paula Harris PA [facility] [place] [address] 01/26/2025 9:50 AM EDT Appointment Mammography/[place] [address] Joan Deutsch APRN [facility] [place] [address] 01/26/2025 10:50 AM EDT Office Visit [place] [address] Joan Deutsch BOW MAKING MACHINE OPERATOR [facility] [place] [address] documented as of this encounter Visit Diagnoses Diagnosis History of nephrolithiasis Personal history of urinary calculi documented in this encounter Care Teams Manager People Relationship Specialty Start Date End Date Mariluz Watts MD [address] [place] [address] PCP - General 08/22/10 documented as of this encounter
--- OUTSIDE RECORDS SUMMARY | 2024-05-21 06:10 | XMS_ITS | Encounter Summary ---
Author Organization [place] [address] Care Team Providers Care Rayon Winder Name Role Phone Mariluz Watts MD Primary Care Provider [phone] Reason for Visit * Reason Comments Sinusitis Sinus issues Laryngitis Encounter Details Date Type Department Care Team (Late st Contact Info) Description 04/24/2016 1:00 PM EDT Office [place] [address] Cleo Kruger APRN [facility] [place] [address] Chronic rhinitis; Gastric reflux Social History Tobacco [...] this encounter Progress Notes * Cleo Kruger, DRUM SPRAYER - 04/24/2016 1:00 PM EDT Otolaryngology Outpatient Consultation Note Date of Visit: 04/24/2016 Location of Visit: Otolaryngology Clinic, [facility] Patient: Diamond Gaming ([id number] ; 1945 Primary Care Provider: MARILUZ WATTS [...] to rough spots on thighs. 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 Family History: Family History Problem Relation Age [...] issues and rtc as needed. Cleo CHUA [place], [place] [address] Office documented in this encounter Plan of Treatment Upcoming Encounters Date Type Department Care Team (Late st Contact Info) Description 11/16/2024 1:00 PM EST Office [place] [phone] Paula Harris PA [facility] [place] [address] 01/26/2025 9:50 AM EDT Appointment Mammography/[place] [phone] Joan Deutsch, [facility] [place] [address] 01/26/2025 10:50 AM EDT Office [place] [address] Joan Deutsch, [facility] [place] [address] documented as of this encounter Visit Diagnoses Diagnosis Chronic rhinitis Gastric reflux Esophageal reflux documented in this encounter Care Teams Rayon Winder Relationship Specialty Start Date End Date Mariluz Watts MD [address] [place] [address] PCP - General 08/22/10 documented as of this encounter
--- OUTSIDE RECORDS SUMMARY | 2024-05-21 06:10 | XMS_ITS | Encounter Summary ---
[place] [address] Care Team Providers Care Industrial Security Analyst Name Role Phone Mariluz Watts MD Primary Care Provider [phone] Reason for Visit * Reason Comments Follow Up Surgery Encounter Details Date Type Department Care Team (Late st Contact Info) Description 12/19/2015 11:45 AM EDT Office [place] [address] Bella Ly APRN [facility] [place] [address] History of breast cancer Social History Tobacco [...] carcinoma with lobular features Tumor Grade: Intermediate Wgrlva-Iaoam-Swutbohqho Score: 7 Tubular Differentiation: 3 Mitotic Rate: [...] sentinel nodes: 2 (Specimen A - Right [place] node) No. positive for carcinoma: 1 (H&E) [...] PM EST Office [place] [address] Paula Harris PA [facility] [place] [address] 01/26/2025 9:50 AM EDT Appointment Mammography/[place] [address] Joan Deutsch APRN [facility] [place] [address] 01/26/2025 10:50 AM EDT Office Visit General Surgery at [facility] [place] [address] Joan Deutsch THREAD CHECKER [facility] [place] [address] documented as of this encounter Results * [...] BIRADS CATEGORY 2: BENIGN FINDINGS * ??The [employer] and The Society of [...] breast documented in this encounter Care Teams Industrial Security Analyst Relationship Specialty Start Date End Date Mariluz Watts MD [address] [place] [address] PCP - General 08/22/10 documented as of this encounter
--- OUTSIDE RECORDS SUMMARY | 2024-05-21 06:10 | XMS_ITS | Encounter Summary ---
Author Organization [facility] [place] [address] Care Team Providers Care Pamphlet Distributor Name Role Phone Mariluz Watts MD Primary Care Provider [phone] Encounter Details Date Type Department Care Team (Latest Contact Info) Description 07/27/2015 - 07/27/2015 7:21 AM EDT Hospital Encounter [place] [address] Rosales Bowman MD [facility] [place] [address] Discharge Disposition: Home Social History Tobacco Use [...] Refills Start Date End Date LACTOBAC CMB #8-[id number] ORAL Take 1 tablet by mouth daily. [...] to rough spots on thighs. 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 pickle processor both scripts 02/02/14 400 g 10 02/01/2014 [...] PM EST Office [place] [address] Paula Harris PA [facility] DR [place] [address] 01/26/2025 9:50 AM EDT Appointment Mammography/DXA at [place] [phone] Joan Deutsch [facility] [place] [address] 01/26/2025 10:50 AM EDT Office [place] [address] Joan Deutsch [facility] [place] [address] Pending Results Name Type Priority Associated Diagnoses Date /Time FILM LIBRARY-FLUORO OR [id number] ONL Imaging Routine 07/27/2015 10: 20 AM EDT documented as of this encounter Visit Diagnoses Not on filedocumented in this encounter Care Teams Pamphlet Distributor Relationship Specialty Start Date End Date Mariluz Watts MD [address] [facility] [facility] [place] [address] PCP - General 08/22/10 documented as of this encounter
--- OUTSIDE RECORDS SUMMARY | 2024-05-21 06:10 | XMS_ITS | Encounter Summary ---
Author Organization [facility] [place] [address] Care Team Providers Care Account Supervisor Name Role Phone Mariluz Watts MD Primary Care Provider [phone] Encounter Details Date Type Department Care Team (Late st Contact Info) Description 07/11/2015 - 07/11/2015 12:04 AM EDT Hospital Encounter [place] [address] Abrahan Merlos MD [facility] HEMATOLOGY/ONCOL[place] [address] Social History Tobacco Use Types Packs/Day Years [...] Refills Start Date End Date LACTOBAC CMB #1-[id number] ORAL Take 1 tablet by mouth daily. [...] PM EST Office Visit General Surgery at [place] [phone] Paula Harris PA [facility] [place] [address] 01/26/2025 9:50 AM EDT Appointment Mammography/DXA at [place] [phone] Joan Deutsch [facility] [address] 01/26/2025 10:50 AM EDT Office [place] [address] Joan Deutsch, [facility] [address] documented as of this encounter Procedures Procedure [...] on filedocumented in this encounter Care Teams Account Supervisor Relationship Specialty Start Date End Date Mariluz Watts MD [address] [place] [address] [address] [place] [address] PCP - General 08/22/10 documented as of this encounter
--- OUTSIDE RECORDS SUMMARY | 2024-05-21 06:10 | XMS_ITS | Encounter Summary ---
Author Organization [facility] [place] [address] Care Team Providers Care Casting Agent Name Role Phone Mariluz Watts MD Primary Care Provider [phone] Reason for Visit * Reason Comments Bilateral Foot Pain Rt > Lt * Consultation (Routine) - Closed Specialty Diagnoses / Procedures Referred By John lyons Referred To Contact Orthopaedics Diagnoses Right foot pain Scar Aviles II, [facility] [place] [address] [facility] [address] [place] [phone] Referral ID Status Reason Start Date Expiration Date V isits Requested Visits Authorized [id number] Closed Consult, Test & Treat 05/16/2016 05/16/2017 1 1 Encounter Details Date Type Department Care Team (Late st Contact Info) Description 05/23/2016 11:00 AM EDT Office [place] [address] Cornell Marinelli, [facility] [place] [address] Right foot pain; Osteoarthritis of [...] (CELEXA) 20 mg Tablet ??? LACTOBAC CMB #8-[id number] ORAL ??? Lysine 500 mg Tablet ??? [...] PM EST Office [place] [address] Paula Harris PA [facility] [place] [address] 01/26/2025 9:50 AM EDT Appointment Mammography/[place] [address] Joan Deutsch APRN [facility] [place] [address] 01/26/2025 10:50 AM EDT Office [place] [address] Joan Deutsch APRN [facility] [place] [address] documented as of this encounter Results * [...] limb documented in this encounter Care Teams Casting Agent Relationship Specialty Start Date End Date Mariluz Watts MD [address] [place] [address] PCP - General 08/22/10 documented as of this encounter
--- OUTSIDE RECORDS SUMMARY | 2024-05-21 06:10 | XMS_ITS | Encounter Summary ---
Author Organization [facility] [place] [address] Care Team Providers Care Graphic Manager Name Role Phone Mariluz Watts MD Primary Care Provider [phone] Encounter Details Date Type Department Care Team (Latest Contact Info) Description 12/19/2015 10:28 AM EDT - 12/19/2015 11:59 PM EDT Hospital [place] [address] Gardenia Marquez MD [facility] [place] [address] Encounter for screening mammogram for breast cancer [...] Refills Start Date End Date LACTOBAC CMB #4-[id number] ORAL Take 1 tablet by mouth daily. [...] to rough spots on thighs. 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 sampler pickup both scripts 02/02/14 400 g 10 02/01/2014 [...] PM EST Office [place] [address] Paula Harris PA [facility] [place] [address] 01/26/2025 9:50 AM EDT Appointment Mammography/[place] [address] Joan Deutsch APRN [facility] [place] [address] 01/26/2025 10:50 AM EDT Office [place] [address] Joan Deutsch APRN [facility] [place] [address] documented as of this encounter Procedures Procedure [...] mammographic evidence of malignancy. RECOMMENDATION: * ??The [employer] [employer] and The Society of [...] cancer documented in this encounter Care Teams Graphic Manager Relationship Specialty Start Date End Date Mariluz Watts MD [address] [place] [address] PCP - General 08/22/10 documented as of this encounter
--- OUTSIDE RECORDS SUMMARY | 2024-05-21 06:10 | XMS_ITS | Encounter Summary ---
[place] [address] Care Team Providers Care Freelance Recruiter Name Role Phone Mariluz Watts MD Primary Care Provider [phone] Reason for Visit * Reason Onset Date Comments Medication Problem 08/04/2015 Encounter Details Date Type Department Care Team (Late st Contact Info) Description 08/04/2015 [place] [address] Jennifer Suresh MD [facility] [place] [address] Medication Problem Social History Tobacco Use Types [...] PM EST Office Visit General Surgery at [place] [phone] Paula Harris PA [facility] [place] [address] 01/26/2025 9:50 AM EDT Appointment Mammography/[place] [address] Joan Deutsch APRN [facility] [place] [address] 01/26/2025 10:50 AM EDT Office Visit General Surgery at [place] [phone] Joan Deutsch APRN [facility] [place] [address] documented as of this encounter Visit Diagnoses Not on filedocumented in this encounter Care Teams Freelance Recruiter Relationship Specialty Start Date End Date Mariluz Watts MD [address] [place] [address] 1 [place] [address] PCP - General 08/22/10 documented as of this encounter
--- OUTSIDE RECORDS SUMMARY | 2024-05-21 06:10 | XMS_ITS | Encounter Summary ---
Author Organization [place] [address] Care Team Providers Care Television Mechanic Name Role Phone Mariluz Watts MD Primary Care Provider [phone] Encounter Details Date Type Department Care Team (Late st Contact Info) Description 07/27/2015 9:07 AM EDT - 07/27/2015 11:05 AM EDT Surgery [place] [address] Kami Bowman MD [facility] [place] [address] CYSTO, REMOVAL OF STENT, FOREIGN BODY OR [...] pain medications The number for questions is [phone] before 5 PM weekdays and [phone] after 5 PM and weekends. Activity level: [...] weeks with a renal ultrasoundprior. Please call [phone] if you do not receive your appointment. [...] Refills Start Date End Date LACTOBAC CMB #[id number] ORAL Take 1 tablet by mouth daily. [...] rough spots on thighs. 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 02/02/14 400 g 10 02/01/2014 [...] Bowman MD - 07/27/2015 9:27 AM EDT [facility] [place] Patient Name: Diamond Gaming : [id number] MR#: [id number] Case Date: 07/27/2015 Surgeon: Surgeon(s) and Role: [...] Operative Note Patient Name: Diamond Gaming : [id number] MR#: [id number] Case Date: 07/27/2015 Surgeon: Surgeon(s) and Role: [...] PM EST Office Visit General Surgery at [place] [id number] Paula Harris PA [facility] [place] [address] 01/26/2025 9:50 AM EDT Appointment Mammography/[place] [address] Joan Deutsch APRN [facility] [place] [address] 01/26/2025 10:50 AM EDT Office Visit General Surgery at [place] [phone] Joan Deutsch APRN [facility] [place] [address] Pending Results Name Type Priority Associated Diagnoses Date /Time FILM LIBRARY-FLUORO OR W-DUB-VKKHKEU ONL Imaging Routine 07/27/2015 10: 20 AM EDT Scheduled Orders Name Type Priority Associated Diagnoses Orde r Schedule FILM LIBRARY-FLUORO OR M-UUK-FUIMURU ONL Imaging Routine Once PRN (f or [...] 11:02 am) Patient Info ID #: ? [id number] ?: ??[birth year] (69 yrs) Name: ? DIAMOND GAMING ? Visit Date: 09/14/2015 10:43 am Performed By Performed By: ? Abel JOSEID, ??Christine Attending: ?Nitesh STEINER, Bella Associate: ?Ramon STEINER, [facility] Referred By: ?KAMI BOWMAN MD Service(s) Provided ??URETRO - Retroperitoneal Complete - [id number] ? [id number] Indications ??s/p left ureteroscopy/stent, r/o residual hydro [...] 09/14/2015 11:02 am) Patient Info ID #: [id number] : [birth year] (69 yrs) Name: DIAMOND GAMING Visit Date: 09/14/2015 10:43 am Performed By Performed By: Christine Roman RDMS Attending: Bella Dowling MD Associate: Ramon STEINER [facility] Referred By: KAMI BOWMAN MD Service(s) Provided URETRO - Retroperitoneal Complete - [id number] Indications s/p left ureteroscopy/stent, r/o residual hydro [...] Recovery documented in this encounter Care Teams Television Mechanic Relationship Specialty Start Date End Date Mariluz Watts MD [address] [place] [address] PCP - General 08/22/10 documented as of this encounter
--- OUTSIDE RECORDS SUMMARY | 2024-05-21 06:10 | XMS_ITS | Encounter Summary ---
Author [facility] [place] [address] Care Team Providers Care Cisco Consultant Name Role Phone Mariluz Watts MD Primary Care Provider [phone] Encounter Details Date Type Department Care Team (Late st Contact Info) Description 07/27/2015 9:17 AM EDT Anesthesia [place] [address] Jose D Ramos MD [facility] [place] [address] Karla Maurice MD [facility] [place] [address] Anesthesia Record Procedure Summary Procedure Name Responsible [...] 0915; metacarpal vein left (top of hand); mabw-hxo-vardhd catheter system; 20 gauge, 1 in length; Melva MAURO; intradermal injection, tolerated well; 1; metacarpal vein (top of hand), left; 07/27/15; 1203 07/27/15 0915 by Beronica Morillo RN 07/27/15 1203 by Bredna Pisano, RN ETT Mask Ventilation: Ea sy [...] epi, into skin and subcutaneous tissues (CPT [id number]) left total hip arthroplasty, anterior Hueter approach with [place] table (CPT code 20038) Left hip intraoperative radiologic examination (CPT code 56572) Amicar infusion (5 g IV load, then 1g/hr x 3 hrs) Components Used: [place] Accolade stem, size 4, 127 degrees Trident PSLcup, 52 mm, solid 32 mm ID, alumina 32-4 mm alumina head ??? Hip pain ??? S/P Right ARSLAN 03/06/2005 ([place]) SURGERY DATE: 03/06/2005 AR[place]IO STEINER, NICK Angel Surgical Procedure Performed: Right total hip arthroplasty, cementless, tjeatwe-kq-lavcdjl Components Used: Nina Trident 52 shell outer [...] PM EST Office Visit General Surgery at [place] [phone] Paula Harris PA [facility] [place] [address] 01/26/2025 9:50 AM EDT Appointment Mammography/[place] [address] Joan Deutsch APRN [facility] [place] [address] 01/26/2025 10:50 AM EDT Office [place] [address] Joan Deutsch APRN [facility] [place] [address] documented as of this encounter Visit Diagnoses [...] mg documented in this encounter Care Teams Cisco Consultant Relationship Specialty Start Date End Date Mariluz Watts MD [address] [place] [address] [address] [place] [address] PCP - General 08/22/10 documented as of this encounter
--- OUTSIDE RECORDS SUMMARY | 2024-05-21 06:10 | XMS_ITS | Encounter Summary ---
[place] [address] Care Team Providers Care Cardiology Consultant Name Role Phone Mariluz Watts MD Primary Care Provider [phone] Reason for Visit * Reason Comments Follow-up Encounter Details Date Type Department Care Team (Late st Contact Info) Description 02/09/2016 2:00 PM EDT Office Visit Hematology [place] [address] Abrahan Melros MD [facility] HEMATOLOGY/[place] [address] Breast cancer, stage 2, right; Osteopenia Social [...] we can't coordinate with [place], ask my departmental secretary to have me call you. Please call my office at [phone] in the interim if you have any [...] any concerns over her breast exam. Abrahan Melros MD pickle sorter in Hematology-Oncology documented in this encounter Plan of Treatment Upcoming Encounters Date Type Department Care Team (Late st Contact Info) Description 11/16/2024 1:00 PM EST Office [place] [address] Paula Harris PA [facility] [place] [address] 01/26/2025 9:50 AM EDT Appointment Mammography/[place] [address] Joan Deutsch, [facility] [place] [address] 01/26/2025 10:50 AM EDT Office [place] [phone] Joan Deutsch, [facility] [place] [address] documented as of this encounter Results * [...] BMD measurements and plots are available in iJento under the imaging tab. Paper copies will be sent to providers without iJento access. If you have received this report without the data sheet and do not have access to i[employer]ento, please contact Radiology Lawn Caretaker at [phone] Saturday thru Saturday 8am-4pm. Narrative 12/11/2016 2:52 [...] BMD measurements and plots are available in EViva Visionunder the imaging tab. Paper copies will be sent to providers without iJento access.If you have received this report without the data sheet and do not haveaccess to iJento, please contact Radiology Lawn Caretaker at [phone] Saturday thruFrid 8am-4pm. Abrahan Merlos MD IMG DEXA ORDERABLES documented in this encounter Visit Diagnoses Diagnosis Breast cancer, stage 2, right Osteopenia Disorder of bone and cartilage, unspecified Osteopenia Disorder of bone and cartilage, unspecified documented in this encounter Care Teams Cardiology Consultant Relationship Specialty Start Date End Date Mariluz Watts MD [address] [facility] [address] [place] [address] PCP - General 08/22/10 documented as of this encounter
--- OUTSIDE RECORDS SUMMARY | 2024-05-21 06:10 | XMS_ITS | Encounter Summary ---
Author Organization [facility] [place] [address] Care Team Providers Care Automobile Radio Repairer Name Role Phone Mariluz Watts MD Primary Care Provider [phone] Encounter Details Date Type Department Care Team (Latest Contact Info) Description 12/11/2016 7:30 AM EDT - 12/11/2016 7:32 AM EDT Hospital Encounter [place] [address] Gardenia Marquez MD [facility] [place] [address] History of breast cancer Discharge Disposition: Home [...] 0.5 mg Tablet 12/07/2016 05/01/2018 LACTOBAC CMB #[id number] ORAL Take 1 tablet by mouth daily. 12/24/2012 05/01/2018 Lysine 500 mg Tablet Take 1 tablet by mouth daily. Reported on 12/11/2016 05/01/2018 multivitamin (THERAGRAN) tablet Take 1 tablet by mouth daily. Reported on 12/11/2016 07/03/2018 ammonium lactate (LAC-HYDRIN) 12 % lotionIndications:SK (seborrheic keratosis) Apply topically as needed for Dry Skin. Use to rough spots on thighs. 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 pickle maker both scripts 02/02/14 400 g [...] PM EST Office [place] [phone] Paula Harris PA [facility] [place] [address] 01/26/2025 9:50 AM EDT Appointment Mammography/[place] [address] Joan Deutsch APRN [facility] [place] [address] 01/26/2025 10:50 AM EDT Office Visit [place] [address] Joan Deutsch, GE [facility] [place] [address] documented as of this encounter Procedures Procedure [...] BIRADS CATEGORY 2: BENIGN FINDINGS * ??[employer] [place] and [employer] Society of [...] breast documented in this encounter Care Teams Automobile Radio Repairer Relationship Specialty Start Date End Date Mariluz Watts MD [address] [address] PCP - General 08/22/10 documented as of this encounter
--- OUTSIDE RECORDS SUMMARY | 2024-05-21 06:10 | XMS_ITS | Encounter Summary ---
Author Organization [facility] [place] [address] Care Team Providers Care Career Services Coordinator Name Role Phone Mariluz Watts MD Primary Care Provider [phone] Reason for Visit * Reason Comments Nephrolithiasis * Auth/Cert Specialty Diagnoses / Procedures Referred By John lyons Referred To Contact Diagnoses Pain Procedures CYSTO, STENT PLACEMENT Referral ID Status Reason Start Date Expiration Date Visits Re quested Visits Authorized [id number] 1 1 Encounter Details Date Type Department Care Team (Late st Contact Info) Description 07/11/2015 5:00 PM EDT - 07/11/2015 6:20 PM EDT [place] [address] Stephen Chauhan III, MD [facility] [place] [address] CYSTO, STENT PLACEMENT (WRVU 2.82) Social History [...] epi, into skin and subcutaneous tissues (CPT [id number]) left total hip arthroplasty, anterior Hueter approach with Perrin table (CPT code 16430) Left hip intraoperative radiologic examination (CPT code 60231) Amicar infusion (5 g IV load, then 1g/hr x 3 hrs) Components Used: Nicole Accolade stem, size 4, 127 degrees Trident PSLcup, 52 mm, solid 32 mm ID, alumina 32-4 mm alumina head ??? Hip pain ??? S/P Right ARSLAN 03/06/2005 (Arcadio) SURGERY DATE: 03/06/2005 ARCADIO STEINER, NICK Angel Surgical Procedure Performed: Right total hip arthroplasty, cementless, qbxajem-vs-yfrmrtl Components Used: Nicole Trident 52 shell outer [...] the past, who presents in transfer from [facility] with a 3-4 mm mid left ureteral [...] which prompted her to present to the [facility] ED early this morning. There, labs were [...] Hospital Course: Ms. Gaming was admitted to [facility] 07/11/15. A stent was placed in her Left ureter the same day. She received IV antibiotics for 2 days and when her urine culture results from [facility] returned she was transitioned to a course [...] to rough spots on thighs. 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 pickling grader both scripts 02/02/14 Quantity: 400 g Refills: [...] pain medications The number for questions is [phone] before 5 PM weekdays and [phone] after 5 PM and weekends. Activity level: [...] stent removal in the office. Please call [phone] if you do not receive your appointment. [...] Discharge References/Attachments: Discharge References/Attachments KIDNEY STONE DIET (SINHALA) Electronically Signed By: HARSHA VENTURA MD 07/13/2015 documented in this encounter Discharge Instructions * Patient Instructions* Harsha Ventura MD - 07/12/2015 12:13 PM EDT Call your doctor for: ??? fevers greater than 101 ??? severe nausea or vomiting ??? increasing pain not controlled by pain medications The number for questions is [phone] before 5 PM weekdays and [phone] after 5 PM and weekends. Activity level: [...] stent removal in the office. Please call [phone] if you do not receive your appointment. [...] through Care Everywhere. * KIDNEY STONE DIET (SINHALA) documented in this encounter Medications at Time of Discharge Medication Sig Dispensed Refills Start Date End Date LACTOBAC CMB #[id number] ORAL Take 1 tablet by mouth daily. [...] to rough spots on thighs. 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 pickling grader both scripts 02/02/14 400 g 10 02/01/2014 [...] team. No discharge needs identified atthis time. Glass Pulverizer Equipment Operator remains available as needed for coordination of [...] with a PMH of nephrolithiasis transferred to [facility] with a 3-4mm L ureteral stone, mild [...] 07/11/2015 9:40 PM EDT Report rec'd from [place] in PACU. Pt transferred to unit and [...] the past, who presents in transfer from [facility] with a 3-4 mm mid left ureteral [...] which prompted her to present to the [facility] ED early this morning. There, labs were [...] Procedure Date: 08/18/2006 ??? Created by interface [id number] Procedure Date: 01/27/2007 ??? Created by interface [...] >4.0CM, TRUNK performed by TIRSO CHAUDHARI at [facility] MAIN OR ??? Pro colonoscopy, diagnostic 02/29/2012 COLONOSCOPY, DIAGNOSTIC performed by RAJAT KUO at [facility] ENDOSCOPY ??? Pro total hip arthroplasty 07/22/2012 @TOTAL HIP ARTHROPLASTY, ANTERIOR APPROACH performed by NICK ERVIN at [facility] OR Social History History Social [...] 159 Cultures: Blood and urine cultures at [facility] and [facility] pending Imaging: CT abd/pelvis 07/11/2015: 3-4 mm [...] a 69 y.o. female who presents to [facility] with infected obstructing L renal stone. History [...] HPI 69-year-old female presents in transfer from [facility] with left-sided nephrolithiasis and transient hypotension with [...] She is not a diabetic. Presented to [facility] CT scan of the abdomen was performed [...] EDT Office of Care Management (OCM) / Glass Pulverizer Equipment Operator(CM)/ Initial Assessment Discussed patient with Provider Team and in multidisciplinary discharge-planning rounds. Reviewed record and interviewed patient. Introduced/reviewed CM role and services accepted. REASON for HOSPITALIZATION: Ms. Gaming is a 69 yo WF with a PMH of nephrolithiasis transferred to [facility] with a 3-4mm L ureteral stone, mild hydronephrosis, positive UA, and questionable urosepsisI. IVF, IV Zosyn q8, flomax, oxycodone, flagyl/lac-hydrin bid topical, nexium, celexa, bowel meds, Vit D3,I&O, PMH See H&P PREVIOUS FUNCTIONAL STATUS: Independent CURRENT FUNCTIONAL STATUS:Bedrest, OON chair/ambulate w staff SOCIAL / FAMILY SUPPORTS:, 69 year old female residing in [place], [place] and lists Deidra Renée and Willy Gaming as her contacts . ADVANCE DIRECTIVES: On file. Deidra is the primary and sole agent. HEALTH /PRESCRIPTION COVERAGE:Medicare A/B, [employer] with prescription coverage with co-pays. CURRENT HOME/COMMUNITY SERVICES/EQUIPMENT: DME:None Home Health Agency:None Other:None MONOGRAM MACHINE OPERATOR REFERRAL: To be determined. PRIMARY CARE PHYSICIAN: MARILUZ WATTS MD (General) [address] / [place] [address] POTENTIAL DISCHARGE NEEDS: ?VNA PATIENT/FAMILY EDUCATION NEEDS: [...] Operative Note Patient Name: Diamond Gaming : [id number] MR#: [id number] Case Date: 07/11/2015 Surgeon: Surgeon(s) and Role: [...] condition. Jennifer Suresh MD Urology PGY-2 Pager: [phone] Associated attestation - Stephen Chauhan III, MD - 07/14/2015 1:29 PM EDT Attestation: Case Date: 07/11/2015 I was present and I participated during the entire procedure (does not need to include opening and closing). Stephen Chauhan III, MD 07/14/2015 * Brief Op Note - Jennifer Suresh MD - 07/11/2015 6:31 PM EDT Brief Operative Note Patient Name: Diamond Gaming : [id number] MR#: [id number] Case Date: 07/11/2015 Surgeon: Surgeon(s) and Role: [...] 1:59 PM EDT Arrived via EMS from [facility] due to Lt obstructed renal calculi, chills [...] EST Office [place] [phone] Paula Harris PA [facility] [place] [address] 01/26/2025 9:50 AM EDT Appointment Mammography/[place] [phone] Joan Deutsch APRN [facility] [place] [address] 01/26/2025 10:50 AM EDT Office Visit [place] [phone] Joan Deutsch SHAFTING WORKER [facility] [place] [address] Pending Results Name Type Priority Associated Diagnoses Date /Time FILM LIBRARY-FLUORO OR B-[id number] ONL Imaging Routine 07/11/2015 7:1 8 PM EDT Scheduled Orders Name Type Priority Associated Diagnoses Orde r Schedule FILM LIBRARY-FLUORO OR D-DNC-QHOERAN ONL Imaging Routine Once PRN (f or Radiant use) for 1 Occurrences starting 07/11/2015 until 07/11/2015 documented as of this encounter Procedures Procedure Name Priority Date/Time Associated Diagnosis Comments IMPLANTABLE DEVICES SCAN 015 12:00 AM EDT PLUNKET NURSE SCAN 07/14/2015 12:00 AM EDT HEMOGRAM Routine [...] SCAN EXT O RDR/RSLT * SCAN DOC: PLUNKET NURSE (07/14/2015 12:00 AM EDT) Anatomical Region Laterality [...] MD HEMATOLOGY ORDERA LIANA Performing Organization Address [facility] Co de Phone Number CERNER MANISHAENNIUM * [...] MD HEMATOLOGY ORDERA BLEDenisa Performing Organization Address [facility]/ZIP Co de Phone Number CERNER MANISHAENNIUM * Basic Metabolic Panel (non-fasting) (07/13/2015 2:15 AM EDT) Glucose 100 65 - 199 mg/dL CERNER MILLENNIUM Comment:Diabetes: >=200 mg/d L plus symptoms Blood Urea Nitrogen 15 8 - 18 mg/dL CERNER MILLENNIUM Creatinine 0.83 0.70 - 1.20 mg/dL CERNER MILLENNIUM Comment: Please note that the pediatric reference intervals supplied above were not validated at [facility]. Results from pediatric patients should be interpreted [...] the following links into your internet browser. [email or web address]://[email or web address] Windows/DHnkdep [email or web address]://G.[email or web address] Windows/DHnkf Blood specimen (specimen) 07/13/2015 2:15 AM EDT [...] Panel (non-fasting) (07/12/2015 3:03 AM EDT) Pathologist [facility] Glucose 120 65 - 199 mg/dL CERNER MILLENNIUM Comment:Diabetes: >=200 mg/d L plus symptoms Blood Urea Nitrogen 11 8 - 18 mg/dL CERNER MILLENNIUM Creatinine 0.55(L) 0.70 - 1.20 mg/dL CERNER MILLENNIUM Comment: Please note that the pediatric reference intervals supplied above were not validated at [facility]. Results from pediatric patients should be interpreted [...] the following links into your internet browser. [email or web address]://[email or web address]. Windows/DHnkdep [email or web address]://G.[email or web address] Windows/DHMCnkf Blood specimen (specimen) 07/12/2015 3:03 AM EDT 07/12/2015 3:17 AM EDT Narrative Resulting Agency Comment Spec In Lab Stephen Chauhan III, MD CHEMISTRY ORDERAB LES Performing Organization Address [facility] de Phone Number VALERIE TOPETE * L-Lactate2 Whole Blood (07/11/2015 3:33 PM EDT) Lactate WB 1.6 mmol/L VALERIE TOPETE Blood specimen (specimen) 07/11/2015 3:33 PM EDT 07/11/2015 3:33 PM EDT Emergency Dept CHEMISTRY ORDERABLE S Performing Organization Address [facility] Phone Number VALERIE TOPETE * Red Hold (07/11/2015 3:00 PM EDT) Red Hold Sample in lab. VALERIE TOPETE Blood specimen (specimen) Venous Draw / Unknown 07/11/2015 3:00 PM EDT 07/11/2015 3:29 PM EDT Clarence Monet MD CHEMISTRY ORDERABLES Performing Organization Address [facility] Phone Number VALERIE TOPETE * Osborne Hold [...] Monet MD CHEMISTRY ORDERABLES Performing Organization Address [facility]/ZIP Co de Phone Number VALERIE MAYERIUM * Blue Tube HOLD (07/11/2015 3:00 PM EDT) Blue Hold Sample in lab. VALERIE DYERENNIUM Blood specimen (specimen) Venous Draw / Unknown 07/11/2015 3:00 PM EDT 07/11/2015 3:28 PM EDT Clarence Monet MD HEMATOLOGY ORDERABLE S Performing Organization Address [facility] Co de Phone Number VALERIE MAYERIUM * [...] MD HEMATOLOGY ORDERABLE S Performing Organization Address [facility] Co de Phone Number VALERIE TOPETE * (ABNORMAL) Creatinine (07/11/2015 3:00 PM EDT) Creatinine 0.57(L) 0.70 - 1.20 mg/dL [facility] Comment: Please note that the pediatric reference intervals supplied above were not validated at [facility]. Results from pediatric patients should be interpreted in conjunction to the patient's age, height and muscle mass. Est Glomerular Filtration Rate >60 >=60 [facility] MILL[facility] Comment: This estimated GFR (eGFR) value [...] the following links into your internet browser. http://[email or web address]. Windows/DHnkdep [email or web address]://G.[email or web address] Windows/DHMCnkf Blood specimen (specimen) 07/11/2015 3:00 PM EDT 07/11/2015 3:27 PM EDT Narrative Resulting Agency Comment Spec In Lab Clarence Monet MD CHEMISTRY ORDERABLES Performing Organization Address [facility] de Phone Number VALERIE TOPETE * BUN (07/11/2015 3:00 PM EDT) Blood Urea Nitrogen 15 8 - 18 mg/dL [facility] Blood specimen (specimen) 07/11/2015 3:00 PM EDT 07/11/2015 3:27 PM EDT Narrative Resulting Agency Comment Spec In Lab Clarence Monet MD CHEMISTRY ORDERABLES Performing Organization Address [facility] Co de Phone Number VALERIE TOPETE * [...] Monet MD CHEMISTRY ORDERABLES Performing Organization Address [facility] Co de Phone Number [facility] * Urine culture Clean Catch Urine (07/11/2015 2:00 PM EDT) Pathologist [facility] Urine Culture No growth (Less than 1,000 cfu/ml). CERNER MILLENNIUM Urine specimen obtained by clean catch procedure (specimen) 07/11/2015 2:00 PM EDT 07/11/2015 4:08 PM EDT Narrative Resulting Agency Comment Spec In Lab Clarence Monet MD MICROBIOLOGY - GENER AL ORDERABLES Performing Organization Address [facility] Co de Phone Number [facility] * (ABNORMAL) Urinalysis with reflex Culture [...] Urine Dipstick Clear Clear CERNER MILLENNIUM Specific Sunset Urine Automated 1.016 1.002 - 1.030 CERNER [...] for result report. Stephen Chauhan III, MD [facility] FILM LIBRARY ORDERABLES documented in this encounter [...] Sat07/11/15 at 1656, Administer over 4 Hours, account receivable associate to OR, Indication for (Active or Suspected): [...] Routine documented in this encounter Care Teams Career Services Coordinator Relationship Specialty Start Date End Date Mariluz Watts MD [address] [facility] [address] [place] [address] PCP - General 08/22/10 documented as of this encounter
--- OUTSIDE RECORDS SUMMARY | 2024-05-21 06:10 | XMS_ITS | Encounter Summary ---
Author Organization [facility] [place] [address] Care Team Providers Care Mechanical Planner Name Role Phone Mariluz Watts MD Primary Care Provider [phone] Encounter Details Date Type Department Care Team (Latest Contact Info) Description 09/14/2015 10:12 AM EST - 09/14/2015 11:59 PM [facility] Hospital [place] [address] Kami Bowman MD [facility] [place] [address] Nephrolithiasis Discharge Disposition: Home Social History Tobacco [...] Refills Start Date End Date LACTOBAC CMB #0-[id number] ORAL Take 1 tablet by mouth daily. [...] to rough spots on thighs. 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 fiber picker both scripts 02/02/14 400 g 10 [...] PM EST Office [place] [phone] Paula Harris PA [facility] [place] [address] 01/26/2025 9:50 AM EDT Appointment Mammography/[place] [phone] Joan Deutsch APRN [facility] [place] [address] 01/26/2025 10:50 AM EDT Office [place] [phone] Joan Deutsch APRN [facility] [place] [address] documented as of this encounter Procedures Procedure [...] 11:02 am) Patient Info ID #: ? [id number] ?: [birth year] (69 yrs) Name: ? DIAMOND GAMING ? Visit Date: 09/14/2015 10:43 am Performed By Performed By: ? Abel JOSE, ??Christine Attending: ?Bella Dowling MD Associate: ?Ramon STEINER, [facility] Referred By: ?KAMI BOWMAN MD Service(s) Provided ??URETRO - Retroperitoneal Complete - [id number] ? [id number] Indications ??s/p left ureteroscopy/stent, r/o residual hydro [...] 09/14/2015 11:02 am) Patient Info ID #: [id number] : [birth year] (69 yrs) Name: DIAMOND GAMING Visit Date: 09/14/2015 10:43 am Performed By Performed By: Christine Roman RDMS Attending: Bella Dowling MD Associate: Ramon STEINER [facility] Referred By: KAMI BOWMAN MD Service(s) Provided URETRO - Retroperitoneal Complete - [id number] Indications s/p left ureteroscopy/stent, r/o residual hydro [...] kidney documented in this encounter Care Teams Mechanical Planner Relationship Specialty Start Date End Date Mariluz Watts MD [address] [facility] [address] [place] [address] PCP - General 08/22/10 documented as of this encounter
--- OUTSIDE RECORDS SUMMARY | 2024-05-21 06:10 | XMS_ITS | Encounter Summary ---
Author Organization [facility] [place] [address] Care Team Providers Care Photogeologist Name Role Phone Mariluz Watts MD Primary Care Provider [phone] Reason for Visit * Auth/Cert Specialty Diagnoses / Procedures Referred By John lyons Referred To Contact Diagnoses Pain Procedures CYSTO, STENT PLACEMENT Referral ID Status Reason Start Date Expiration Date Visits Re quested Visits Authorized [id number] 1 1 Encounter Details Date Type Department Care Team (Late st Contact Info) Description 07/11/2015 12:05 AM EDT - 07/11/2015 1:57 PM EDT Hospital Encounter Radiology [facility] [place] [address] Jose D Chauhan III, MD [facility] [place] [address] Social History Tobacco Use Types Packs/Day Years [...] Refills Start Date End Date LACTOBAC CMB #8-[id number] ORAL Take 1 tablet by mouth daily. [...] to rough spots on thighs. 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 roller picker both scripts 02/02/14 400 g [...] PM EST Office [place] [phone] Paula Harris PA [facility] [place] [address] 01/26/2025 9:50 AM EDT Appointment Mammography/[place] [phone] Joan Deutsch [facility] [place] [address] 01/26/2025 10:50 AM EDT Office [place] [phone] Joan Deutsch [facility] [place] [address] Pending Results Name Type Priority Associated Diagnoses Date /Time FILM LIBRARY-FLUORO OR [id number] ONL Imaging Routine 07/11/2015 7:1 8 PM EDT documented as of this encounter Visit Diagnoses Not on filedocumented in this encounter Care Teams Photogeologist Relationship Specialty Start Date End Date Mariluz Watts MD [address] [place] [address] [address] [place] [address] PCP - General 08/22/10 documented as of this encounter
--- OUTSIDE RECORDS SUMMARY | 2024-05-21 06:10 | XMS_ITS | Encounter Summary ---
Author Organization [facility] [place] [address] Care Team Providers Care Sales Vendor Name Role Phone Mariluz Watts MD Primary Care Provider [phone] Encounter Details Date Type Department Care Team (Latest Contact Info) Description 05/23/2016 9:53 AM EDT - 05/23/2016 11:59 PM EDT Hospital Encounter XRay at [address] [place] [address] Morgan Kong MD [facility] [place] [address] Right foot pain Discharge Disposition: Home Social [...] Refills Start Date End Date LACTOBAC CMB #6-[id number] ORAL Take 1 tablet by mouth daily. 12/24/2012 05/01/2018 Lysine 500 mg Tablet Take 1 tablet by mouth daily. Reported on 12/11/2016 05/01/2018 multivitamin (THERAGRAN) tablet Take 1 tablet by mouth daily. Reported on 12/11/2016 07/03/2018 ammonium lactate (LAC-HYDRIN) 12 % lotionIndications:SK (seborrheic keratosis) Apply topically as needed for Dry Skin. Use to rough spots on thighs. 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 cook pickled meat both scripts 02/02/14 400 g 10 02/01/2014 [...] PM EST Office [place] [phone] aPula Harris PA [facility] [place] [address] 01/26/2025 9:50 AM EDT Appointment Mammography/[place] [address] Joan Deutsch APRN [facility] [place] [place] [address] 01/26/2025 10:50 AM EDT Office [place] [phone] Joan Deutsch APRN [facility] [place] [place] [address] documented as of this encounter Procedures Procedure [...] limb documented in this encounter Care Teams Sales Vendor Relationship Specialty Start Date End Date Mariluz Watts MD [address] [place] [address] [address] [place] [id number] PCP - General 08/22/10 documented as of this encounter
--- OUTSIDE RECORDS SUMMARY | 2024-05-21 06:10 | XMS_ITS | Encounter Summary ---
Author Organization [facility] [place] [address] Care Team Providers Care Warehouse Inventory Clerk Name Role Phone Mariluz Watts MD Primary Care Provider [phone] Reason for Visit * Auth/Cert Specialty Diagnoses / Procedures Referred By John lyons Referred To Contact Diagnoses Pain Procedures CYSTO, STENT PLACEMENT Referral ID Status Reason Start Date Expiration Date Visits Re quested Visits Authorized [id number] 1 1 Encounter Details Date Type Department Care Team (Late st Contact Info) Description 07/11/2015 5:47 PM EDT Anesthesia Event [place] [address] Aide Raymundo MD [facility] [place] [address] Jeramy Hernandez MD [facility] [place] [address] Anesthesia Record Procedure Summary Procedure Name Responsible [...] epi, into skin and subcutaneous tissues (CPT [id number]) left total hip arthroplasty, anterior Hueter approach with [place] table (CPT code 99413) Left hip intraoperative radiologic examination (CPT code 85363) Amicar infusion (5 g IV load, then 1g/hr x 3 hrs) Components Used: [place] Accolade stem, size 4, 127 degrees Trident PSLcup, 52 mm, solid 32 mm ID, alumina 32-4 mm alumina head ??? Hip pain ??? S/P Right ARSLAN 03/06/2005 (Arcadio) SURGERY DATE: 03/06/2005 ARCADIO STEINER, NICK Angel Surgical Procedure Performed: Right total hip arthroplasty, cementless, [id number]-cd-[id number] Components Used: [place] Trident 52 shell outer diameter Femoral head 32-4 mm [place] Accolade Femoral stem size 4, 127 deg [...] risks discussed with patient. Plan discussed with LABORER GENERAL. Misc. Assessment: documented in this encounter Plan of Treatment Upcoming Encounters Date Type Department Care Team (Late st Contact Info) Description 11/16/2024 1:00 PM EST Office [place] [phone] Paula Harris PA [facility] [place] [address] 01/26/2025 9:50 AM EDT Appointment Mammography/[place] [address] Joan Deutsch APRN [facility] [place] [address] 01/26/2025 10:50 AM EDT Office [place] [address] Joan Deutsch, GE [facility] [place] [address] documented as of this encounter Visit Diagnoses [...] Sat07/11/15 at 1656, Administer over 4 Hours, director call to OR, Indication for (Active or Suspected): [...] mg documented in this encounter Care Teams Warehouse Inventory Clerk Relationship Specialty Start Date End Date Mariluz Watts MD [address] [place] [address] PCP - General 08/22/10 documented as of this encounter
--- OUTSIDE RECORDS SUMMARY | 2024-05-21 06:10 | XMS_ITS | Encounter Summary ---
Author Organization [facility] [place] [address] Care Team Providers Care Poising Inspector Name Role Phone Mariluz Watts MD Primary Care Provider [phone] Reason for Visit * Reason Comments Nephrolithiasis * Auth/Cert Specialty Diagnoses / Procedures Referred By John lyons Referred To Contact Diagnoses Pain Procedures CYSTO, STENT PLACEMENT Referral ID Status Reason Start Date Expiration Date Visits Re quested Visits Authorized [id number] 1 1 Encounter Details Date Type Department Care Team (Latest Contact Info) Description 07/11/2015 1:58 PM EDT - 07/13/2015 2:12 PM EDT Hospital Encounter 2 [place] [address] Stephen Chauhan III, MD [facility] [place] [address] Dk Polanco MD [facility] [place] [address] Pain; Kidney stone Discharge Disposition: Home Social [...] epi, into skin and subcutaneous tissues (CPT [id number]) left total hip arthroplasty, anterior Hueter approach with [place] table (CPT code 42525) Left hip intraoperative radiologic examination (CPT code 74019) Amicar infusion (5 g IV load, then 1g/hr x 3 hrs) Components Used: Donora Accolade stem, size 4, 127 degrees Trident PSLcup, 52 mm, solid 32 mm ID, alumina 32-4 mm alumina head ??? Hip pain ??? S/P Right ARSLAN 03/06/2005 ([place]) SURGERY DATE: 03/06/2005 ARCADIO STEINER, NICK Angel Surgical Procedure Performed: Right total hip arthroplasty, cementless, jpdayzp-kh-vusamuk Components Used: Donora Trident 52 shell outer diameter Femoral head [...] the past, who presents in transfer from [facility] with a 3-4 mm mid left [...] which prompted her to present to the [facility] ED early this morning. There, labs [...] Hospital Course: Ms. Gaming was admitted to [facility] 07/11/15. A stent was placed in her Left ureter the same day. She received IV antibiotics for 2 days and when her urine culture results from [facility] returned she was transitioned to a [...] to rough spots on thighs. 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 car pick up driver both scripts 02/02/14 Quantity: 400 g Refills: [...] pain medications The number for questions is [phone] before 5 PM weekdays and [phone] after 5 PM and weekends. Activity level: [...] stent removal in the office. Please call [phone] if you do not receive your appointment. [...] Discharge References/Attachments: Discharge References/Attachments KIDNEY STONE DIET (DUTCH) Electronically Signed By: HARSHA VENTURA MD 07/13/2015 documented in this encounter Discharge Instructions * Patient Instructions* Harsha Ventura MD - 07/12/2015 12:13 PM EDT Call your doctor for: ??? fevers greater than 101 ??? severe nausea or vomiting ??? increasing pain not controlled by pain medications The number for questions is [phone] before 5 PM weekdays and [phone] after 5 PM and weekends. Activity level: [...] stent removal in the office. Please call [phone] if you do not receive your appointment. [...] through Care Everywhere. * KIDNEY STONE DIET (DUTCH) documented in this encounter Medications at Time of Discharge Medication Sig Dispensed Refills Start Date End Date LACTOBAC CMB #[id number] ORAL Take 1 tablet by mouth daily. [...] to rough spots on thighs. 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 car pick up driver both scripts 02/02/14 400 g 10 02/01/2014 [...] team. No discharge needs identified atthis time. Design Printing Machine Set Up Operator remains available as needed for coordination [...] with a PMH of nephrolithiasis transferred to [facility] with a 3-4mm L ureteral stone, mild [...] the past, who presents in transfer from [facility] with a 3-4 mm mid left [...] which prompted her to present to the [facility] ED early this morning. There, labs [...] Procedure Date: 08/18/2006 ??? Created by interface [id number] Procedure Date: 01/27/2007 ??? Created by interface [...] >4.0CM, TRUNK performed by TIRSO CHAUDHARI at [facility] MAIN OR ??? Pro colonoscopy, diagnostic 02/29/2012 COLONOSCOPY, DIAGNOSTIC performed by RAJAT KUO at [facility] ENDOSCOPY ??? Pro total hip arthroplasty 07/22/2012 @TOTAL HIP ARTHROPLASTY, ANTERIOR APPROACH performed by NICK ERVIN at [facility] MAIN OR Social History History Social History [...] 159 Cultures: Blood and urine cultures at [facility] and [facility] pending Imaging: CT abd/pelvis 07/11/2015: 3-4 [...] a 69 y.o. female who presents to [facility] with infected obstructing L renal stone. History [...] HPI 69-year-old female presents in transfer from [facility] with left-sided nephrolithiasis and transient hypotension [...] She is not a diabetic. Presented to [facility] CT scan of the abdomen was [...] admitted to urology for further management. Devaughn Muhamamd DO Resident 07/11/15 2329 * Marily Lomeli RN - 07/11/2015 3:31 [...] EDT Office of Care Management (OCM) / Design Printing Machine Set Up Operator(CM)/ Initial Assessment Discussed patient with Provider Team and in multidisciplinary discharge-planning rounds. Reviewed record and interviewed patient. Introduced/reviewed CM role and services accepted. REASON for HOSPITALIZATION: Ms. Gaming is a 69 yo WF with a PMH of nephrolithiasis transferred to [facility] with a 3-4mm L ureteral stone, mild hydronephrosis, positive UA, and questionable urosepsisI. IVF, IV Zosyn q8, flomax, oxycodone, flagyl/lac-hydrin bid topical, nexium, celexa, bowel meds, Vit D3,I&O, PMH See H&P PREVIOUS FUNCTIONAL STATUS: Independent CURRENT FUNCTIONAL STATUS:Bedrest, OON chair/ambulate w staff SOCIAL / FAMILY SUPPORTS:, 69 year old female residing in [place], [place] and lists Deidra Renée and Willy Gaming as her contacts . ADVANCE DIRECTIVES: On file. Deidra is the primary and sole agent. HEALTH /PRESCRIPTION COVERAGE:Medicare A/B, Technical Machine with prescription coverage with co-pays. CURRENT HOME/COMMUNITY SERVICES/EQUIPMENT: DME:None Home Health Agency:None Other:None GAS UTILITY WORKER REFERRAL: To be determined. PRIMARY CARE PHYSICIAN: MARILUZ WATTS MD (General) [address] [facility] [place] [address] POTENTIAL DISCHARGE NEEDS: ?VNA PATIENT/FAMILY EDUCATION NEEDS: [...] Operative Note Patient Name: Diamond Gaming : [id number] MR#: [id number] Case Date: 07/11/2015 Surgeon: Surgeon(s) and Role: [...] condition. Jennifer Suresh MD Urology PGY-2 Pager: [phone] Associated attestation - Stephen Chauhan III, MD - 07/14/2015 1:29 PM EDT Attestation: Case Date: 07/11/2015 I was present and I participated during the entire procedure (does not need to include opening and closing). Stephen Chauhan III, MD 07/14/2015 * Brief Op Note - Jennifer Suresh MD - 07/11/2015 6:31 PM EDT Brief Operative Note Patient Name: Diamond Gaming : [id number] MR#: [id number] Case Date: 07/11/2015 Surgeon: Surgeon(s) and Role: [...] 1:59 PM EDT Arrived via EMS from [facility] due to Lt obstructed renal calculi, [...] PM [place] Office [place] [address] Paula Harris PA [facility] [place] [address] 01/26/2025 9:50 AM EDT Appointment Mammography/DXA at [place] [phone] Joan Deutsch [facility] [place] [address] 01/26/2025 10:50 AM EDT Office [place] [address] Joan Deutsch [facility] [place] [address] Pending Results Name Type Priority Associated Diagnoses Date /Time FILM LIBRARY-FLUORO OR M-EIX-[id number] ONL Imaging Routine 07/11/2015 7:1 8 PM EDT Scheduled Orders Name Type Priority Associated Diagnoses Orde r Schedule FILM LIBRARY-FLUORO OR C-[id number] ONL Imaging Routine Once PRN (f or Radiant use) for 1 Occurrences starting 07/11/2015 until 07/11/2015 documented as of this encounter Procedures Procedure Name Priority Date/Time Associated Diagnosis Comments IMPLANTABLE DEVICES SCAN 015 12:00 AM EDT ELECTRIC METER REPAIRER HELPER SCAN 07/14/2015 12:00 AM EDT HEMOGRAM Routine [...] SCAN EXT O RDR/RSLT * SCAN DOC: ELECTRIC METER REPAIRER HELPER (07/14/2015 12:00 AM EDT) Anatomical Region Laterality [...] MD HEMATOLOGY ORDERA BLEDenisa Performing Organization Address [facility] de Phone Number CERRIGO MAYERIUM * (ABNORMAL) [...] MD HEMATOLOGY ORDERA BLES Performing Organization Address [facility] Co de Phone Number VALERIE MAYERIUM * Basic Metabolic Panel (non-fasting) (07/13/2015 2:15 AM EDT) Glucose 100 65 - 199 mg/dL CERNER MILLENNIUM Comment:Diabetes: >=200 mg/d L plus symptoms Blood Urea Nitrogen 15 8 - 18 mg/dL CERNER MILLENNIUM Creatinine 0.83 0.70 - 1.20 mg/dL CERNER MILLENNIUM Comment: Please note that the pediatric reference intervals supplied above were not validated at [facility]. Results from pediatric patients should be interpreted [...] the following links into your internet browser. [email or web address] Blood specimen (specimen) 07/13/2015 2:15 AM EDT 07/13/2015 2:43 AM EDT Narrative Resulting Agency Comment Spec In Lab Stephen Chauhan III, MD CHEMISTRY ORDERAB LES [facility] * (ABNORMAL) Differential, Automated (07/12/2015 3:03 AM [...] Lab Stephen Chauhan III, MD HEMATOLOGY ORDERA [facility] CERNER MILLENNIUM * (ABNORMAL) Basic Metabolic Panel (non-fasting) (07/12/2015 3:03 AM EDT) [facility] Glucose 120 65 - 199 mg/dL CERNER MILLENNIUM Comment:Diabetes: >=200 mg/d L plus symptoms Blood Urea Nitrogen 11 8 - 18 mg/dL CERNER MILLENNIUM Creatinine 0.55(L) 0.70 - 1.20 mg/dL CERNER MILLENNIUM Comment: Please note that the pediatric reference intervals supplied above were not validated at [facility]. Results from pediatric patients should be interpreted [...] the following links into your internet browser. [email or web address] Blood specimen (specimen) 07/12/2015 3:03 AM EDT 07/12/2015 3:17 AM EDT Narrative Resulting Agency Comment Spec In Lab Stephen Chauhan III, MD CHEMISTRY ORDERAB LES Performing Organization Address [facility] de Phone Number VALERIE TOEPTE * L-Lactate2 Whole Blood (07/11/2015 3:33 PM EDT) Lactate WB 1.6 mmol/L VALERIE TOPETE Blood specimen (specimen) 07/11/2015 3:33 PM EDT 07/11/2015 3:33 PM EDT Emergency Dept CHEMISTRY ORDERABLE S Performing Organization Address [facility] de Phone Number VALERIE MAYERIUM * Red Hold (07/11/2015 3:00 PM EDT) Red Hold Sample in lab. VALERIE TOPETE Blood specimen (specimen) Venous Draw / Unknown 07/11/2015 3:00 PM EDT 07/11/2015 3:29 PM EDT Clarence Monet MD CHEMISTRY ORDERABLES Performing Organization Address [facility] de Phone Number VALERIE MAYERIUM * Osborne [...] Monet MD CHEMISTRY ORDERABLES Performing Organization Address [facility] Co de Phone Number VALERIE MAYERIUM * Blue Tube HOLD (07/11/2015 3:00 PM EDT) Blue Hold Sample in lab. VALERIE MAYERIUM Blood specimen (specimen) Venous Draw / Unknown 07/11/2015 3:00 PM EDT 07/11/2015 3:28 PM EDT Clarence Monet MD HEMATOLOGY ORDERABLE S Performing Organization Address [facility] de Phone Number VALERIE MAYERIUM * (ABNORMAL) [...] MD HEMATOLOGY ORDERABLE S Performing Organization Address [facility] de Phone Number VALERIE TOPETE * (ABNORMAL) Creatinine (07/11/2015 3:00 PM EDT) Creatinine 0.57(L) 0.70 - 1.20 mg/dL [facility] Comment: Please note that the pediatric reference intervals supplied above were not validated at [facility]. Results from pediatric patients should be interpreted in conjunction to the patient's age, height and muscle mass. Est Glomerular Filtration Rate >60 >=60 [facility] Comment: This estimated GFR (eGFR) value was [...] the following links into your internet browser. [email or web address] Blood specimen (specimen) 07/11/2015 3:00 PM EDT 07/11/2015 3:27 PM EDT Narrative Resulting Agency Comment Spec In Lab Clarence Monet MD CHEMISTRY ORDERABLES Performing Organization Address [facility] de Phone Number VALERIE TOPETE * BUN (07/11/2015 3:00 PM EDT) Blood Urea Nitrogen 15 8 - 18 mg/dL [facility] Blood specimen (specimen) 07/11/2015 3:00 PM EDT 07/11/2015 3:27 PM EDT Narrative Resulting Agency Comment Spec In Lab Clarence Monet MD CHEMISTRY ORDERABLES Performing Organization Address [facility] Co de Phone Number CERNER MILLENNIUM [...] Monet MD CHEMISTRY ORDERABLES Performing Organization Address [facility] de Phone Number CERRIGO DYERENNIUM * Urine culture Clean Catch Urine (07/11/2015 2:00 PM EDT) Urine Culture No growth (Less than 1,000 cfu/ml). CERNER MILLENNIUM Urine specimen obtained by clean catch procedure (specimen) 07/11/2015 2:00 PM EDT 07/11/2015 4:08 PM EDT Narrative Resulting Agency Comment Spec In Lab Clarence Monet MD MICROBIOLOGY - GENER AL ORDERABLES Performing Organization Address [facility] Co de Phone Number VALERIE DYERENNIUM [...] Urine Dipstick Clear Clear CERNER MILLENNIUM Specific [place] Urine Automated 1.016 1.002 - 1.030 CERNER [...] Julieta [place] RN) 0939 (Given - Provider: aKth Deluna RN)2030 (Given - Provider: Deidra London, [...] 1656, Administer over 4 Hours, call center nurse to OR, Indication for (Active or Suspected): [...] Routine documented in this encounter Care Teams Poising Inspector Relationship Specialty Start Date End Date Mariluz Watts MD [address] [place] [address] PCP - General 08/22/10 documented as of this encounter
--- OUTSIDE RECORDS SUMMARY | 2024-05-21 06:10 | XMS_ITS | Encounter Summary ---
[place] [address] Care Team Providers Care Air And Water Tester Name Role Phone Mariluz Watts MD Primary Care Provider [phone] Encounter Details Date Type Department Care Team (Late st Contact Info) Description 07/17/2015 [place] [address] Rohan James MD [facility] [place] [address] Social History Tobacco Use Types Packs/Day Years [...] PM EST Office Visit General Surgery at [place] [phone] Paula Harris PA [facility] [address] 01/26/2025 9:50 AM EDT Appointment Mammography/DXA at [place] [phone] Joan Deutsch WARDROBE STYLIST [facility] [place] [address] 01/26/2025 10:50 AM EDT Office Visit General Surgery at [place] [phone] Joan Deutsch [facility] [place] [address] documented as of this encounter Visit Diagnoses Not on filedocumented in this encounter Care Teams Air And Water Tester Relationship Specialty Start Date End Date Mariluz Watts MD [address] [place] [address] [address] [place] [address] PCP - General 08/22/10 documented as of this encounter
--- OUTSIDE RECORDS SUMMARY | 2024-05-21 06:10 | XMS_ITS | Encounter Summary ---
Author Organization [facility] [place] [address] Care Team Providers Care Exhibition Organiser Name Role Phone Mariluz Watts MD Primary Care Provider [phone] Reason for Visit * Reason Comments Follow-up Encounter Details Date Type Department Care Team (Late st Contact Info) Description 06/28/2015 8:00 AM EDT Follow-Up Hematology [place] [address] Abrahan Merlos MD [facility] DR HEMATOLOGY/[place] [address] Breast cancer, stage 2, right Discharge Disposition: [...] between the rib and the breast bone. [phone]. Next bone density in November 2016. documented [...] appointment with Coral Ly. Abrahan Merlos MD deburrer machine in Hematology-Oncology documented in this encounter Plan of Treatment Upcoming Encounters Date Type Department Care Team (Late st Contact Info) Description 11/16/2024 1:00 PM EST Office Visit General Surgery at [place] [phone] Paula Harris PA [facility] [place] [address] 01/26/2025 9:50 AM EDT Appointment Mammography/[place] [address] Jona Deutsch, [facility] [place] [address] 01/26/2025 10:50 AM EDT Office Visit General Surgery at [place] [phone] Joan Deutsch [facility] [place] [address] documented as of this encounter Visit Diagnoses Diagnosis Breast cancer, stage 2, right documented in this encounter Care Teams Exhibition Organiser Relationship Specialty Start Date End Date Mariluz Watts MD [address] [place] [address] [address] [facility] [address] [place] [address] PCP - General 08/22/10 documented as of this encounter
--- OUTSIDE RECORDS SUMMARY | 2024-05-21 06:10 | XMS_ITS | Encounter Summary ---
Author Organization [facility] [place] [address] Care Team Providers Care Medicine Aide Name Role Phone Mariluz Watts MD Primary Care Provider [phone] Encounter Details Date Type Department Care Team (Latest Contact Info) Description 07/27/2015 7:22 AM EDT - 07/27/2015 12:50 PM EDT Hospital Encounter [place] [address] Kami Bowman MD [facility] [place] [address] Nephrolithiasis (Primary Dx) Discharge Disposition: Home Social [...] pain medications The number for questions is [phone] before 5 PM weekdays and [phone] after 5 PM and weekends. Activity level: [...] weeks with a renal ultrasoundprior. Please call [phone] if you do not receive your appointment. [...] Refills Start Date End Date LACTOBAC CMB #[id number] ORAL Take 1 tablet by mouth daily. [...] to rough spots on thighs. 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 rock picker both scripts 02/02/14 400 g 10 [...] MD - 07/27/2015 9:27 AM EDT [facility] Operative Note Patient Name: Diamond Gaming : [id number] MR#: [id number] Case Date: 07/27/2015 Surgeon: Surgeon(s) and Role: [...] Operative Note Patient Name: Diamond Gaming : [id number] MR#: [id number] Case Date: 07/27/2015 Surgeon: Surgeon(s) and Role: [...] PM EST Office [place] [address] Paula Harris PA [facility] [place] [address] 01/26/2025 9:50 AM EDT Appointment Mammography/[place] [address] Joan Deutsch APRN [facility] [place] [address] 01/26/2025 10:50 AM EDT Office Visit General Surgery at [place] [phone] Joan Deutsch APRN [facility] [place] [address] Pending Results Name Type Priority Associated Diagnoses Date /Time FILM LIBRARY-FLUORO OR [id number] ONL Imaging Routine 07/27/2015 10: 20 AM EDT Scheduled Orders Name Type Priority Associated Diagnoses Orde r Schedule FILM LIBRARY-FLUORO OR [id number] ONL Imaging Routine Once PRN (f or [...] 11:02 am) Patient Info ID #: ? [id number] ?: [birth year] (69 yrs) Name: ? DIAMOND GAMING ? Visit Date: 09/14/2015 10:43 am Performed By Performed By: ? Abel JOSE, ??Christine Attending: ?Nitesh STEINER, Bella Associate: ?Ramon STEINER, [facility] Referred By: ?KAMI BOWMAN MD Service(s) Provided ??URETRO - Retroperitoneal Complete - [id number] ? [id number] Indications ??s/p left ureteroscopy/stent, r/o residual hydro [...] 09/14/2015 11:02 am) Patient Info ID #: [id number] : [birth year] (69 yrs) Name: DIAMOND GAMING Visit Date: 09/14/2015 10:43 am Performed By Performed By: Christine Roman RDMS Attending: Bella Dowling MD Associate: Deuce Navarro MD Referred By: KAMI BOWMAN MD Service(s) Provided URETRO - Retroperitoneal Complete - [id number] Indications s/p left ureteroscopy/stent, r/o residual hydro [...] Recovery documented in this encounter Care Teams Medicine Aide Relationship Specialty Start Date End Date Mariluz Watts MD [address] [place] [address] 1 [place] [address] PCP - General 08/22/10 documented as of this encounter
--- OUTSIDE RECORDS SUMMARY | 2024-05-21 06:11 | XMS_ITS | Encounter Summary ---
Author Organization [facility] [place] [address] Care Team Providers Care Regional Facilities Manager Name Role Phone Mariluz Watts MD Primary Care Provider [phone] Encounter Details Date Type Department Care Team (Late st Contact Info) Description 07/02/[address] [facility] [address] [place] [address] Santo Gutierrez III, MD [facility] [address] [place] [address] Social History Tobacco Use Types Packs/Day Years [...] Office Visit General Surgery at [place] [phone] Paula Harris PA [facility] [place] [address] 01/26/2025 9:50 AM EDT Appointment Mammography/[place] [address] Joan Deutsch APRN [facility] [place] [address] 01/26/2025 10:50 AM EDT Office Visit General Surgery at [place] [phone] Joan Deutsch APRN [facility] [place] [address] documented as of this encounter Visit Diagnoses Not on filedocumented in this encounter Care Teams Regional Facilities Manager Relationship Specialty Start Date End Date Mariluz Watts MD [address] [place] [address] PCP - General 08/22/10 documented as of this encounter
--- OUTSIDE RECORDS SUMMARY | 2024-05-21 06:11 | XMS_ITS | Encounter Summary ---
Author Organization [facility] [place] [address] Care Team Providers Care Cable Worker Helper Name Role Phone Mariluz Watts MD Primary Care Provider [phone] Encounter Details Date Type Department Care Team (Latest Contact Info) Description 06/10/2013 12:53 PM EDT - 06/10/2013 11:59 PM EDT Hospital Encounter XRay at [address] [place] [address] CLINIC, Morgan Palma MD [facility] [place] [address] Arthritis of right foot Discharge Disposition: Home [...] Refills Start Date End Date LACTOBAC CMB #[id number] ORAL Take 1 tablet by mouth daily. [...] 45 g 3 12/31/2012 02/01/2014 lactobac cmb #[id number] (PROBIOTIC & ACIDOPHILUS) 300-250 million cell-mg Cap [...] ARTHROCENTESIS,DRAIN/INJECT JOINT/BURSA Pre-Procedure Diagnose(s): Pain Diamond Gaming [id number] HISTORY: Pain right foot Right navicular cuneiform [...] Office Visit General Surgery at [place] [phone] [facility] [place] [address] 01/26/2025 9:50 AM EDT Appointment Mammography/DXA at [place] [phone] Joan Deutsch [facility] [place] [address] 01/26/2025 10:50 AM EDT Office Visit General Surgery at [place] [phone] Joan Deutsch, [facility] [place] [address] documented as of this encounter Procedures Procedure [...] EDT documented in this encounter Care Teams Cable Worker Helper Relationship Specialty Start Date End Date Mariluz Watts MD [address] [place] [address] PCP - General 08/22/10 documented as of this encounter
--- OUTSIDE RECORDS SUMMARY | 2024-05-21 06:11 | XMS_ITS | Encounter Summary ---
[place] [address] Care Team Providers Care Furniture Rental Consultant Name Role Phone Mariluz Watts MD Primary Care Provider [phone] Reason for Visit * Reason Onset Date Comments Other 09/09/2013 Prednisone Weani ng Encounter Details Date Type Department Care Team (Late st Contact Info) Description 09/09/2013 [place] [address] Kimberly Ackerman RN Other (Prednisone Weaning) Social [...] for now and can be reached at [phone] Aviles needs to speak with her. documented in this encounter Plan of Treatment Upcoming Encounters Date Type Department Care Team (Late st Contact Info) Description 11/16/2024 1:00 PM EST Office Visit General Surgery at [place] [phone] Paula Harris PA [facility] [place] [address] 01/26/2025 9:50 AM EDT Appointment Mammography/[place] [address] Joan Deutsch APRN [facility] [place] [address] 01/26/2025 10:50 AM EDT Office [place] [address]-1000 Joan Deutsch APRN [facility] [place] [address] documented as of this encounter Visit Diagnoses Not on filedocumented in this encounter Care Teams Furniture Rental Consultant Relationship Specialty Start Date End Date Mariluz Watts MD [address] [place] [address] PCP - General 08/22/10 documented as of this encounter
--- OUTSIDE RECORDS SUMMARY | 2024-05-21 06:11 | XMS_ITS | Encounter Summary ---
[place] [address] Care Team Providers Care Student Records Coordinator Name Role Phone Mariluz Watts MD Primary Care Provider [phone] Reason for Visit * Reason Onset Date Comments Other 08/19/2013 Encounter Details Date Type Department Care Team (Late st Contact Info) Description 08/19/2013 Telephone Hematology [place] [address] Gemini Felton RN Other Social History Tobacco [...] RN - 08/19/2013 3:28 PM EST Called [facility] to confirm that they received a script for anastrozole 1mg dispense#90 with 3 refills in May. Called [facility] to inform her that she has refills and should call [facility]. * Telephone Encounter - Gemini Felton RN - 08/19/2013 3:20 PM EST Message copied by GEMINI FELTON on SatAug 19, 2013 3:20 PM ------ Message from: HATTIE RODRIGUEZ Created: SatAug 19, 2013 8:18 AM Regarding: anastrozole refill Anastrozole, 1mg, 90 day, to [facility] mail to her home. [phone]. Called pharmacy script was filled today. Called [facility] to inform her that on 06/12/13 her script was generated for one year. Dispense #90 with 3 refills. [facility] filled a refill today. documented in this encounter Plan of Treatment Upcoming Encounters Date Type Department Care Team (Late st Contact Info) Description 11/16/2024 1:00 PM EST Office Visit General Surgery at [place] [phone] Paula Harris PA [facility] [place] [address] 01/26/2025 9:50 AM EDT Appointment Mammography/DXA at [place] [phone] Joan Deutsch APRN [facility] [place] [address] 01/26/2025 10:50 AM EDT Office [place] [address]-1000 Joan Deutsch APRN [facility] [place] [address] documented as of this encounter Visit Diagnoses Not on filedocumented in this encounter Care Teams Student Records Coordinator Relationship Specialty Start Date End Date Mariluz Watts MD [address] [place] [address] PCP - General 08/22/10 documented as of this encounter
--- OUTSIDE RECORDS SUMMARY | 2024-05-21 06:11 | XMS_ITS | Encounter Summary ---
Author Organization [facility] [place] [address] Care Team Providers Care Upper Doubler Name Role Phone Mariluz Watts MD Primary Care Provider [phone] Reason for Visit * Reason Comments Aftercare Of Tjr bilateral arslan 2011 Encounter Details Date Type Department Care Team (Latest Contact Info) Description 07/13/2013 2:50 PM EDT [place] [address] Nick Ruiz MD [address] [place] [address] Charity Norris APRN [facility] [place] [address] H/O bilateral hip replacements (Primary Dx); Psoas [...] this encounter Progress Notes * Charity Norris, LEGAL PROJECT MANAGER - 07/13/2013 3:32 PM EDT Chief Complaint: Both hip ARSLAN. Annual appointment. Pertinent Surgical History: Date: Jul 22- Surgeon: Nick Ruiz MD Pre-operative diagnosis: Left hip osteoarthritis Body mass index is 35.35 kg/(m^2). Surgical Procedure Performed: Injection left hip with 10 cc marcaine 0.25% with epi, into skin and subcutaneous tissues (CPT [id number]) left total hip arthroplasty, anterior Hueter approach with Lawton table (CPT code 49150) Left hip intraoperative radiologic examination (CPT code 48418) Amicar infusion (5 g IV load, then 1g/hr x 3 hrs) Components Used: Arnett Accolade stem, size 4, 127 degrees Trident PSLcup, 52 mm, solid 32 mm ID, alumina 32-4 mm alumina head Bearing surface: ceramic on ceramic Complications: High EBL Type 1 calcar fracture SURGERY DATE: 03/06/2005 Surgeon: NICK RUIZ MD ([id number]) Date: March 06, 2005 Surgeon: Nick Ruiz MD Pre-operative diagnosis: Right hip osteoarthritis Surgical Procedure Performed: Right total hip arthroplasty, cementless, [id number] Components Used: Arnett Trident 52 shell outer diameter Femoral head [...] tried to make an appointment with Dr. Ruiz. Yet, Was told that he was unavailable. [...] the psoas tendon/bursa. 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 Began plaquenil therapy with some improvement in joint pain and systemic complaints. However, She did develop a rash from the plaquenil therefore had to stop this DMARD. She is following with her Professor Of Early Childhood Education in regards to follow for treatment options. 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 No other reported injuries or infections . Baseline numbness and tingling in feet. Having foot surgery by Dr. Kong for a tendon problems. + dupuytren's contractures in hands and is anxious about crutch use. Has not investigated grenadian crutches or a scooter. No other complaints [...] PM EST Office Visit General Surgery at [place] [phone] Paula Harris PA [facility] [place] [address] 01/26/2025 9:50 AM EDT Appointment Mammography/[place] [address] Joan Deutsch APRN [facility] [place] [address] 01/26/2025 10:50 AM EDT Office Visit General Surgery at [place] [phone] Joan Deutsch APRN [facility] [place] [address] documented as of this encounter Visit Diagnoses Diagnosis H/O bilateral hip replacements- Primary Hip joint replacement by other means Psoas tendinitis Enthesopathy of hip region Physical deconditioning Debility, unspecified documented in this encounter Care Teams Upper Doubler Relationship Specialty Start Date End Date Mariluz Watts MD [address] [place] [address] PCP - General 08/22/10 documented as of this encounter
--- OUTSIDE RECORDS SUMMARY | 2024-05-21 06:11 | XMS_ITS | Encounter Summary ---
[place] [address] Care Team Providers Care Software Consultant Name Role Phone Mariluz Watts MD Primary Care Provider [phone] Encounter Details Date Type Department Care Team (Late st Contact Info) Description 12/21/2014 2:53 PM EDT - 12/21/2014 11:59 PM EDT Hospital En[place] [address] Social History Tobacco Use Types Packs/Day Years [...] Refills Start Date End Date LACTOBAC CMB #3-GEW-UXETYERENI ORAL Take 1 tablet by mouth daily. [...] PM EST Office [place] [address] Paula Harris PA [facility] GENERAL SURGERY [place], [place] [phone] 01/26/2025 9:50 AM EDT Appointment Mammography/[place] [address] Joan Deutsch APRN [facility] [place] [address] 01/26/2025 10:50 AM EDT Office Visit General Surgery at [facility] [place] [address] Joan Deutsch APRN [facility] [place] [address] documented as of this encounter Procedures Procedure [...] on filedocumented in this encounter Care Teams Software Consultant Relationship Specialty Start Date End Date Mariluz Watts MD [address] [place] [address] PCP - General 08/22/10 documented as of this encounter
--- OUTSIDE RECORDS SUMMARY | 2024-05-21 06:11 | XMS_ITS | Encounter Summary ---
[place] [address] Care Team Providers Care Taper Operator Name Role Phone Mariluz Watts MD Primary Care Provider [phone] Encounter Details Date Type Department Care Team (Late st Contact Info) Description 12/22/2013 12:04 PM EDT - 12/22/2013 11:59 PM EDT Hospital En[place] [address] Social History Tobacco Use Types Packs/Day Years [...] Refills Start Date End Date LACTOBAC CMB #4-IBI-RYWGIBAPTY ORAL Take 1 tablet by mouth daily. [...] PM EST Office [place] [address]-1000 Paula Harris PA [facility] [place] [address] 01/26/2025 9:50 AM EDT Appointment Mammography/[place] [address]-1000 Joan Deutsch APRN [facility] [place] [address] 01/26/2025 10:50 AM EDT Office [place] [address]-1000 Joan Deutsch APRN [facility] [place] [address] documented as of this encounter Procedures Procedure [...] on filedocumented in this encounter Care Teams Taper Operator Relationship Specialty Start Date End Date Mariluz Watts MD [address] [place] [address] PCP - General 08/22/10 documented as of this encounter
--- OUTSIDE RECORDS SUMMARY | 2024-05-21 06:11 | XMS_ITS | Encounter Summary ---
Author Organization [facility] [place] [address] Care Team Providers Care Clock Assembler Name Role Phone Mariluz Watts MD Primary Care Provider [phone] Reason for Visit * Reason Comments Rosacea Encounter Details Date Type Department Care Team (Late st Contact Info) Description 02/01/2014 1:00 PM EDT Follow-Up Dermatology at [facility] [address] [place] [address] Angeles Ferro MD [facility] [place] [address] Rosacea; SK (seborrheic keratosis); Sebaceous hyperplasia of [...] questions/concerns. Angeles Ferro MD Resident in Dermatology [facility] Patient seen and evaluated with staff assistant corporate secretary: Santo Iniguez MD Section of Dermatology [facility] Note initiated by: A[place]LA [place] LPN: [...] PM EST Office [place] [address] Paula Harris PA [facility] [place] [address] 01/26/2025 9:50 AM EDT Appointment Mammography/[place] [phone] Joan Deutsch, [facility] [place] [address] 01/26/2025 10:50 AM EDT Office Visit [place] [address]-1000 Joan Deutsch, [facility] [place] [address] documented as of this encounter Visit Diagnoses Diagnosis Rosacea SK (seborrheic keratosis) Other seborrheic keratosis Sebaceous hyperplasia of face Other specified disease of sebaceous glands documented in this encounter Care Teams Clock Assembler Relationship Specialty Start Date End Date Mariluz Watts MD [address] [place] [address] PCP - General 08/22/10 documented as of this encounter
--- OUTSIDE RECORDS SUMMARY | 2024-05-21 06:11 | XMS_ITS | Encounter Summary ---
Author Organization [facility] [place] [address] Care Team Providers Care Want Ad Supervisor Name Role Phone Mariluz Watts MD Primary Care Provider [phone] Encounter Details Date Type Department Care Team (Latest Contact Info) Description 12/22/2013 11:52 AM EDT - 12/22/2013 11:59 PM EDT Hospital Encounter Hematology [place] [address] CLINIC, DR KATARINA Merlos, Abrahan Chavarria MD [facility] HEMATOLOGY/[place] [address] Discharge Disposition: Home Social History Tobacco Use [...] Refills Start Date End Date LACTOBAC CMB #3-HLS-TKWOYKSYME ORAL Take 1 tablet by mouth daily. [...] PM EST Office [place] [address]056[address] Paula Harris PA [facility] [place] [address] 01/26/2025 9:50 AM EDT Appointment Mammography[place] [address] Joan Deutsch APRN [facility] [place] [address] 01/26/2025 10:50 AM EDT Office [place] [address] Joan Deutsch, WHOLESALE BUYER [facility] [place] [address] documented as of this encounter Visit Diagnoses Not on filedocumented in this encounter Care Teams Want Ad Supervisor Relationship Specialty Start Date End Date Mariluz Watts MD [address] [place] [address] PCP - General 08/22/10 documented as of this encounter
--- OUTSIDE RECORDS SUMMARY | 2024-05-21 06:11 | XMS_ITS | Encounter Summary ---
Author Organization [facility] [place] [address] Care Team Providers Care Pharmacist'S Aide Name Role Phone Mariluz Watts MD Primary Care Provider [phone] Encounter Details Date Type Department Care Team (Latest Contact Info) Description 07/13/2013 2:16 PM EDT - 07/13/2013 11:59 PM EDT Hospital Encounter XRay at [address] [place] [address] Status post hip replacement Social History Tobacco [...] Refills Start Date End Date LACTOBAC CMB #1-RYB-KBYMSZDPME ORAL Take 1 tablet by mouth daily. [...] 45 g 3 12/31/2012 02/01/2014 lactobac cmb #9-zul-hctfzvxpfm (PROBIOTIC & ACIDOPHILUS) 300-250 million cell-mg Cap [...] PM EST Office [place] [address] Paula Harris, PA [facility] [place] [address] 01/26/2025 9:50 AM EDT Appointment Mammography[place] [address]40[address] Joan Deutsch APRN [facility] DR [place] [address] 01/26/2025 10:50 AM EDT Office [place] [address] Joan Deutsch, GE [facility] DR [place] [address] documented as of this encounter Procedures Procedure [...] means documented in this encounter Care Teams Pharmacist'S Aide Relationship Specialty Start Date End Date Mariluz Watts MD [address] [place] [address] PCP - General 08/22/10 documented as of this encounter
--- OUTSIDE RECORDS SUMMARY | 2024-05-21 06:11 | XMS_ITS | Encounter Summary ---
Author Organization [facility] [place] [address] Care Team Providers Care Rent And Housing Investigator Name Role Phone Mariluz Watts MD Primary Care Provider [phone] Encounter Details Date Type Department Care Team (Late st Contact Info) Description 02/17/2014 10:30 AM EDT [place] [address] [facility] [place] [address] OA (osteoarthritis) (Primary Dx); Aromatase inhibitor use [...] 02/17/2014 10:35 AM EDT Body Mass Index 76772.6 02/17/2014 10:35 AM EDT documented in this [...] tramadol in the future F/U PRN CC: MRAILUZ WATTS MD documented in this encounter Plan of Treatment Upcoming Encounters Date Type Department Care Team (Late st Contact Info) Description 11/16/2024 1:00 PM EST Office [place] [phone] Palua Harris PA [facility] [place] [address] 01/26/2025 9:50 AM EDT Appointment Mammography/[place] [address] Joan Deutsch APRN [facility] [place] [place] [address] 01/26/2025 10:50 AM EDT Office [place] [address] Joan Deutsch APRN [facility] [place] [place] [address] documented as of this encounter Visit Diagnoses Diagnosis OA (osteoarthritis)- Primary Osteoarthrosis, unspecified whether generalized or localized, unspecified site Aromatase inhibitor use Use of aromatase inhibitors documented in this encounter Care Teams Rent And Housing Investigator Relationship Specialty Start Date End Date Mariluz Watts MD [address] [place] [address] PCP - General 08/22/10 documented as of this encounter
--- OUTSIDE RECORDS SUMMARY | 2024-05-21 06:11 | XMS_ITS | Encounter Summary ---
[place] [address] Care Team Providers Care Litigation Attorney Name Role Phone Mariluz Watts MD Primary Care Provider [phone] Reason for Visit * Reason Onset Date Comments Other 07/22/2014 Encounter Details Date Type Department Care Team (Late st Contact Info) Description 07/22/2014 Telephone [place] [address] Kimberly Ackerman RN Other Social History Tobacco [...] PM EST Office Visit General Surgery at [place] [phone] Paula Harris PA [facility] [place] [address] 01/26/2025 9:50 AM EDT Appointment Mammography/[place] [address]-1000 Joan Deutsch APRN [facility] [place] [address] 01/26/2025 10:50 AM EDT Office Visit [place] [address] Joan Deutsch APRN [facility] [address] documented as of this encounter Visit Diagnoses Not on filedocumented in this encounter Care Teams Litigation Attorney Relationship Specialty Start Date End Date Mariluz Watts MD [address] [place] [address] PCP - General 08/22/10 documented as of this encounter
--- OUTSIDE RECORDS SUMMARY | 2024-05-21 06:11 | XMS_ITS | Encounter Summary ---
Author Organization [facility] [place] [address] Care Team Providers Care Junior Mechanical Engineer Name Role Phone Mariluz Watts MD Primary Care Provider [phone] Reason for Visit * Reason Comments Right Foot Pain ? scheduling surgery Encounter Details Date Type Department Care Team (Late st Contact Info) Description 08/12/2013 1:15 PM EST Office Visit [place] [address] Morgan Kong MD [facility] [place] [address] Arthritis of right foot (Primary Dx) Discharge [...] seen one of the rheumatologists here at [facility] and has been on Plaquenil and is [...] PM EST Office Visit [place] [address] Paula Harris PA [facility] [place] [address] 01/26/2025 9:50 AM EDT Appointment Mammography/DXA at [place] [phone] Joan Deutsch [facility] [place] [place] [address] 01/26/2025 10:50 AM EDT Office Visit General Surgery at [place] [phone] Joan Deutsch [facility] [place] [address] documented as of this encounter Visit Diagnoses Diagnosis Arthritis of right foot- Primary Unspecified arthropathy, ankle and foot documented in this encounter Care Teams Junior Mechanical Engineer Relationship Specialty Start Date End Date Mariluz Watts MD [address] [facility] [place] [address] PCP - General 08/22/10 documented as of this encounter
--- OUTSIDE RECORDS SUMMARY | 2024-05-21 06:11 | XMS_ITS | Encounter Summary ---
[place] [address] Care Team Providers Care Calibration Checker Name Role Phone Mariluz Watts MD Primary Care Provider [phone] Encounter Details Date Type Department Care Team (Late st Contact Info) Description 02/24/2014 [place] [address] Kian Ervin MD [address] [place] [address] Social History Tobacco Use Types Packs/Day Years [...] ABOUT THIS. SHE CAN BE REACHED AT [phone]. On a scale of 1 to 10, where would you rate your pain: N/A I will noa this as urgent, the nurses continuously monitor their messages and will call as soon asthey are able. documented in this encounter Plan of Treatment Upcoming Encounters Date Type Department Care Team (Late st Contact Info) Description 11/16/2024 1:00 PM EST Office [place] [address]-1000 Paula Harris PA [facility] [place] [address] 01/26/2025 9:50 AM EDT Appointment Mammography/[place] [address] Joan Deutsch APRN [facility] [place] [address] 01/26/2025 10:50 AM EDT Office [place] [address] Joan Deutsch APRN [facility] [place] [address] documented as of this encounter Visit Diagnoses Not on filedocumented in this encounter Care Teams Calibration Checker Relationship Specialty Start Date End Date Mariluz Watts MD [address] [place] [address] PCP - General 08/22/10 documented as of this encounter
--- OUTSIDE RECORDS SUMMARY | 2024-05-21 06:11 | XMS_ITS | Encounter Summary ---
[place] [address] Care Team Providers Care Rouge Mixer Name Role Phone Mariluz Watts MD Primary Care Provider [phone] Reason for Visit * Reason Comments Follow Up Surgery left ant sharmin 2 Encounter Details Date Type Department Care Team (Latest Contact Info) Description 07/13/2014 8:00 AM EDT Office [place] [address] Kian Ervin MD [address] [place] [address] Primary osteoarthritis of both knees (Primary Dx); [...] PM EST Office [place] [address]-1000 Paula Harris PA [facility] [place] [address] 01/26/2025 9:50 AM EDT Appointment Mammography[place] [address] Joan Deutsch APRN [facility] [place] [address] 01/26/2025 10:50 AM EDT Office [place] [address]-1000 Joan Deutsch APRN [facility] [place] [place] [address] documented as of this encounter Visit Diagnoses Diagnosis Primary osteoarthritis of both knees- Primary Primary localized osteoarthrosis, lower leg H/O total hip arthroplasty, bilateral Hip flexor tendinitis, left documented in this encounter Care Teams Rouge Mixer Relationship Specialty Start Date End Date Mariluz Watts MD [address] [place] [address] PCP - General 08/22/10 documented as of this encounter
--- OUTSIDE RECORDS SUMMARY | 2024-05-21 06:11 | XMS_ITS | Encounter Summary ---
Author Organization [facility] [place] [address] Care Team Providers Care Dental Lab Technician Name Role Phone Mariluz Watts MD Primary Care Provider [phone] Reason for Visit * Reason Comments Follow-up Encounter Details Date Type Department Care Team (Late st Contact Info) Description 12/22/2013 1:00 PM EDT Follow-Up Hematology [place] [address] Abrahan Merlos MD [facility] DR HEMATOLOGY/[place] [address] Osteopenia; Breast cancer, stage 2 Discharge Disposition: [...] who started her on plaquenil and on [id number] mg daily. Diamond currently has pain in [...] in followup insix months. Abrahan Merlos MD director corporate sales in Hematology-Oncology * Kamala Mello RN - [...] PM EST Office [place] [address] Paula Harris PA [facility] [place] [address] 01/26/2025 9:50 AM EDT Appointment Mammography/[place] [address] Joan Deutsch, MUTUEL CASHIER [facility] [place] [address] 01/26/2025 10:50 AM EDT Office [place] [address] Joan Deutsch, GE [facility] [place] [address] documented as of this encounter Procedures Procedure [...] In Lab Abrahan Merlos MD CHEMISTRY ORDERABLES [facility] * VIT D Total Evaluation (12/22/2013 11:59 [...] Merlos MD CHEMISTRY ORDERABLES Performing Organization Address City/State/[facility] Co hi Phone Number [facility] documented in this encounter Visit Diagnoses Diagnosis Osteopenia Disorder of bone and cartilage, unspecified Breast cancer, stage 2 Malignant neoplasm of breast (female), unspecified site documented in this encounter Care Teams Dental Lab Technician Relationship Specialty Start Date End Date Mariluz Watts MD [address] [place] [address] PCP - General 08/22/10 documented as of this encounter
--- OUTSIDE RECORDS SUMMARY | 2024-05-21 06:11 | XMS_ITS | Encounter Summary ---
Author Organization [facility] [place] [address] Care Team Providers Care Esthetician Name Role Phone Mariluz Watts MD Primary Care Provider [phone] Encounter Details Date Type Department Care Team (Latest Contact Info) Description 07/13/2014 7:18 AM EDT - 07/13/2014 11:59 PM EDT Hospital Encounter XRay at [address] [place] [address] CLINIC, Kian Stone MD [address] [place] [address] S/P Left Anterior ARSLAN- 07/22/12 (Dr. Ervin) [...] Refills Start Date End Date LACTOBAC CMB #2-[id number] ORAL Take 1 tablet by mouth daily. [...] to rough spots on thighs. 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 bean picker both scripts 02/02/14 400 g 10 [...] PM EST Office [place] [address] Paula Harris PA [facility] [place] [address] 01/26/2025 9:50 AM EDT Appointment Mammography/[place] [address]1000 Joan Deutsch, [facility] [place] [address] 01/26/2025 10:50 AM EDT Office [place] [address] Joan Deutsch, [facility] [place] [address] documented as of this encounter Procedures Procedure [...] means documented in this encounter Care Teams Esthetician Relationship Specialty Start Date End Date Mariluz Watts MD [address] [facility] 1 [place] [address] PCP - General 08/22/10 documented as of this encounter
--- OUTSIDE RECORDS SUMMARY | 2024-05-21 06:11 | XMS_ITS | Encounter Summary ---
Author Organization [facility] [place] [address] Care Team Providers Care Director Of Guidance Name Role Phone Mariluz Watts MD Primary Care Provider [phone] Encounter Details Date Type Department Care Team (Late st Contact Info) Description 12/21/2014 1:49 PM EDT - 12/21/2014 2:52 PM EDT Hospital Encounter XRay at [address] [place] [address] Osteopenia Social History Tobacco Use Types Packs/Day [...] Refills Start Date End Date LACTOBAC CMB #3-EYC-[id number] ORAL Take 1 tablet by mouth daily. [...] to rough spots on thighs. 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 [place] [place] [address] Joan Deutsch [facility] [place] [address] documented as of this encounter Procedures Procedure [...] BMD measurements and plots are available in [employer] under the imaging tab. Paper copies will be sent to providers without [employer] access. If you have received this report without the data sheet and do not have access to [email or web address], please contact Radiology Automotive Tire Technician at [phone] Saturday thru Saturday 8am-4pm. Narrative 12/24/2014 9:38 [...] copies will be sent to providers without [email or web address] access.If you have received this report without the data sheet and do not haveaccess to [employer], please contact Radiology Automotive Tire Technician at [phone] Saturday thrrid 8am-4pm. Abrahan Merlos MD IMG DEXA ORDERABLES documented in this encounter Visit Diagnoses Diagnosis Osteopenia Disorder of bone and cartilage, unspecified documented in this encounter Care Teams Director Of Guidance Relationship Specialty Start Date End Date Mariluz Watts MD [address] [facility] 1 [place] [address] PCP - General 08/22/10 documented as of this encounter
--- OUTSIDE RECORDS SUMMARY | 2024-05-21 06:11 | XMS_ITS | Encounter Summary ---
Author Organization [facility] [place] [address] Care Team Providers Care Principal Planner Name Role Phone Mariluz Watts MD Primary Care Provider [phone] Reason for Visit * Reason Comments Medication Refill Encounter Details Date Type Department Care Team (Late st Contact Info) Description 07/01/2013 Refill Dermatology at [facility] [address] [place] [address] Chayo Willingham MD [facility] [place] [address] Social History Tobacco Use Types Packs/Day Years [...] PM EST Office Visit General Surgery at [place] [phone] Paula Harris PA [facility] [place] [address] 01/26/2025 9:50 AM EDT Appointment Mammography/DXA at [place] [phone] Joan Deutsch APRN [facility] [place] [address] 01/26/2025 10:50 AM EDT Office Visit [place] [address]1000 Joan Deutsch APRN [facility] [place] [address] documented as of this encounter Visit Diagnoses Not on filedocumented in this encounter Care Teams Principal Planner Relationship Specialty Start Date End Date Mariluz Watts MD [address] [place] [address] PCP - General 08/22/10 documented as of this encounter
--- OUTSIDE RECORDS SUMMARY | 2024-05-21 06:11 | XMS_ITS | Encounter Summary ---
[place] [address] Care Team Providers Care Health And Safety Specialist Name Role Phone Mariluz Watts MD Primary Care Provider [phone] Reason for Visit * Reason Onset Date Comments Other 08/17/2013 Pt called [facility] for follow appt with Dr. Ervin or an associate provider to discuss her left hip pain. S/P bilat ARSLAN by IMT. Encounter Details Date Type Department Care Team (Late st Contact Info) Description 08/17/2013 [place] [address]-1000 Bertha Zhu, RN Other (Pt called looking [...] PM EST Office [place] [address] Paula Harris PA [facility] [place] [address] 01/26/2025 9:50 AM EDT Appointment Mammography/DXA at [place] [phone] Joan Deutsch APRN [facility] [place] [address] 01/26/2025 10:50 AM EDT Office Visit General Surgery at [place] [phone] Joan Deutsch APRN [facility] [place] [address] documented as of this encounter Visit Diagnoses Not on filedocumented in this encounter Care Teams Health And Safety Specialist Relationship Specialty Start Date End Date Mariluz Watts MD [address] [facility] [address] [facility] 1 [place] [address] PCP - General 08/22/10 documented as of this encounter
--- OUTSIDE RECORDS SUMMARY | 2024-05-21 06:11 | XMS_ITS | Encounter Summary ---
[place] [address] Care Team Providers Care Sales Operations Manager Name Role Phone Mariluz Watts MD Primary Care Provider Reason for Visit * Reason Comments Follow Up Surgery Encounter Details Date Type Department Care Team (Late st Contact Info) Description 12/22/2013 1:45 PM EDT Follow-[place] [address] Bella Ly APRN [facility] [place] [address] History of breast cancer (Primary Dx) Discharge [...] carcinoma with lobular features Tumor Grade: Intermediate Tgykgm-Dvmls-Nnliewxilz Score: 7 Tubular Differentiation: 3 Mitotic Rate: [...] sentinel nodes: 2 (Specimen A - Right [place]cona node) No. positive for carcinoma: 1 (H&E) [...] PM EST Office [place] [address] Paula Harris PA [facility] GENERAL SURGERY [place], [place] [address] 01/26/2025 9:50 AM EDT Appointment Mammography/[place] [address] Joan Deutsch, [facility] [place] [address] 01/26/2025 10:50 AM EDT Office [place] [address] Joan Deutsch, [facility] [place] [address] documented as of this encounter Visit Diagnoses Diagnosis History of breast cancer- Primary Personal history of malignant neoplasm of breast documented in this encounter Care Teams Sales Operations Manager Relationship Specialty Start Date End Date Mariluz Watts MD [address] [place] [address] PCP - General 08/22/10 documented as of this encounter
--- OUTSIDE RECORDS SUMMARY | 2024-05-21 06:11 | XMS_ITS | Encounter Summary ---
Author Organization [facility] [place] [address] Care Team Providers Care Manager Company Name Role Phone Mariluz Watts MD Primary Care Provider [phone] Encounter Details Date Type Department Care Team (Late st Contact Info) Description 11/25/2013 10:30 AM EST Follow-[place] [address] Scar Aviles II, [facility] [place] [address] Aromatase inhibitor-associated arthralgia (Primary Dx); OA (osteoarthritis) [...] PM EST Office [place] [address] Paula Harris, [facility] [place] [address] 01/26/2025 9:50 AM EDT Appointment Mammography/[place] [address] Joan Deutsch, [facility] [place] [address] 01/26/2025 10:50 AM EDT Office Visit [place] [address] Joan Deutsch, [facility] [place] [address] documented as of this encounter Visit Diagnoses Diagnosis Aromatase inhibitor-associated arthralgia- Primary Pain in joint, site unspecified OA (osteoarthritis) Osteoarthrosis, unspecified whether generalized or localized, unspecified site documented in this encounter Care Teams Manager Company Relationship Specialty Start Date End Date Mariluz Watts MD [address] [place] [address] PCP - General 08/22/10 documented as of this encounter
--- OUTSIDE RECORDS SUMMARY | 2024-05-21 06:11 | XMS_ITS | Encounter Summary ---
[place] [address] Care Team Providers Care Senior Java Programmer Analyst Name Role Phone Mariluz Watts MD Primary Care Provider [phone] Encounter Details Date Type Department Care Team (Latest Contact Info) Description 03/16/2014 8:57 AM EDT - 03/16/2014 11:59 PM EDT Hospital Encounter [place] [address] CLINIC, Kian Stone MD [address] [place] [address] S/P Left Anterior ARSLAN- 07/22/12 (Dr. Ervin) [...] Refills Start Date End Date LACTOBAC CMB #2-[id number] ORAL Take 1 tablet by mouth daily. [...] Pre-Procedure Diagnose(s): Left hip pain [employer] [id number] HISTORY: Pain left hip Left iliopsoas tendon sheath INJECTION UNDER CT TECHNIQUE: After an extensive conversation with the patient regarding risks and benefits, oral and written consent were obtained. A pre- procedural time-out was performed as per [facility] protocol. The patient was placed supine on [...] EST Office [place] [address] Paula Harris PA [facility] [place] [address] 01/26/2025 9:50 AM EDT Appointment Mammography/[place] [address] Joan Deutsch APRN [facility] [place] [address] 01/26/2025 10:50 AM EDT Office Visit [place] [address] Joan Deutsch APRN [facility] [place] [address] documented as of this encounter Procedures Procedure [...] pre- procedural time-out was performed as per [facility] protocol. ?? The patient was placed supine [...] pre- procedural time-out was performed as per [facility] protocol. The patient was placed supine on [...] under CT. Resident/ Fellow :none Attending: Miah Valentnie MD was present for and performed theentire procedure. Kian Ervin MD IMG CT ORDERABLES documented in this encounter Visit Diagnoses Diagnosis S/P Left Anterior ARSLAN- 07/22/12 (Dr. Ervin) Hip joint replacement by other means documented in this encounter Care Teams Senior Java Programmer Analyst Relationship Specialty Start Date End Date Mariluz Watts MD [address] [place] [address] [address] [facility] 1 [place] [address] PCP - General 08/22/10 documented as of this encounter
--- OUTSIDE RECORDS SUMMARY | 2024-05-21 06:11 | XMS_ITS | Encounter Summary ---
[place] [address] Care Team Providers Care Choke Setter Name Role Phone Mariluz Watts MD Primary Care Provider [phone] Reason for Visit * Reason Onset Date Comments Other 07/10/2013 Medication issue Encounter Details Date Type Department Care Team (Late st Contact Info) Description 07/10/2013 Telephone [place] [address] Kimberly Ackerman RN Other (Medication issue) Social [...] PM EST Office Visit [place] [address] Paula Harris PA [facility] [place] [address] 01/26/2025 9:50 AM EDT Appointment Mammography/[place] [address] Joan Deutsch APRN [facility] [place] [address] 01/26/2025 10:50 AM EDT Office Visit [place] [address]1000 Joan Deutsch APRN [facility] [place] [address] documented as of this encounter Visit Diagnoses Not on filedocumented in this encounter Care Teams Choke Setter Relationship Specialty Start Date End Date Mariluz Watts MD [address] [place] [address] PCP - General 08/22/10 documented as of this encounter
--- OUTSIDE RECORDS SUMMARY | 2024-05-21 06:11 | XMS_ITS | Encounter Summary ---
Author Organization [facility] [place] [address] Care Team Providers Care Wind Tunnel Technician Name Role Phone Mariluz Watts MD Primary Care Provider [phone] Reason for Visit * Reason Comments Follow-up Encounter Details Date Type Department Care Team (Late st Contact Info) Description 12/21/2014 4:30 PM EDT Follow-Up Hematology [place] [address] Abrahan Merlos MD [facility] DR HEMATOLOGY/[place] [address] Breast cancer, stage 2, right Discharge Disposition: [...] her, and she is now packing up [employer]. She has a father with dementia. She [...] in followup in May2015. Abrahan Merlos MD night time babysitter in Hematology-Oncology documented in this encounter Plan of Treatment Upcoming Encounters Date Type Department Care Team (Late st Contact Info) Description 11/16/2024 1:00 PM EST Office [place] [address] Paula Harris PA [facility] [place] [address] 01/26/2025 9:50 AM EDT Appointment Mammography/DXA at [place] [phone] Joan Deutsch MEDICAL LAB TECH INSTRUCTOR [facility] [place] [address] 01/26/2025 10:50 AM EDT Office [place] [address]1000 Joan Deutsch MEDICAL LAB TECH INSTRUCTOR [facility] [place] [address] documented as of this encounter Procedures Procedure [...] In Lab Abrahan Merlos MD CHEMISTRY ORDERABLES [facility] documented in this encounter Visit Diagnoses Diagnosis Breast cancer, stage 2, right documented in this encounter Care Teams Wind Tunnel Technician Relationship Specialty Start Date End Date Mariluz Watts MD [address] [facility] [address] [place] [address] PCP - General 08/22/10 documented as of this encounter
--- OUTSIDE RECORDS SUMMARY | 2024-05-21 06:11 | XMS_ITS | Encounter Summary ---
Author Organization [facility] [place] [address] Care Team Providers Care Advanced Solutions Architect Name Role Phone Mariluz Watts MD Primary Care Provider [phone] Reason for Visit * Reason Comments Follow-up Encounter Details Date Type Department Care Team (Late st Contact Info) Description 06/12/2013 10:00 AM EDT Follow-Up Hematology [place] [address] Abrahan Merlos MD [facility] DR HEMATOLOGY/[place] [address] Breast cancer, stage 2 (Primary Dx); Osteopenia [...] visit with Coral Ly. Abrahan Merlos MD yarn texture machine operator in Hematology-Oncology documented in this encounter Plan of Treatment Upcoming Encounters Date Type Department Care Team (Late st Contact Info) Description 11/16/2024 1:00 PM EST Office [place] [address] Paula Harris PA [facility] [place] [address] 01/26/2025 9:50 AM EDT Appointment Mammography/[place] [address] Joan Deutsch APRN [facility] [place] [address] 01/26/2025 10:50 AM EDT Office [place] [address]1000 Joan Deutsch APRN [facility] [place] [address] documented as of this encounter Results * [...] In Lab Abrahan Merlos MD [facility]STRY [facility] * VIT D Total Evaluation (12/22/2013 11:59 AM EDT) Vitamin D Total 25 OH 42 30 - 100 ng/mL [facility] Comment: Deficient <10 ng/mL Insufficient 10 [...] Lab Abrahan Merlos MD CHEMISTRY ORDERABLES [facility] documented in this encounter Visit Diagnoses Diagnosis Breast cancer, stage 2- Primary Malignant neoplasm of breast (female), unspecified site Osteopenia Disorder of bone and cartilage, unspecified documented in this encounter Care Teams Advanced Solutions Architect Relationship Specialty Start Date End Date Mariluz Watts MD [address] [place] [address] 1 [place] [address] PCP - General 08/22/10 documented as of this encounter
--- OUTSIDE RECORDS SUMMARY | 2024-05-21 06:11 | XMS_ITS | Encounter Summary ---
Author Organization [facility] [place] [address] Care Team Providers Care Rate Supervisor Name Role Phone Mariluz Watts MD Primary Care Provider [phone] Encounter Details Date Type Department Care Team (Late st Contact Info) Description 03/01/2014 8:33 AM EDT - 03/01/2014 11:59 PM EDT Hospital Encounter XRay at [address] [place] [address] Left knee pain Social History Tobacco Use [...] Refills Start Date End Date LACTOBAC CMB #0-[id number] ORAL Take 1 tablet by mouth daily. [...] PM EST Office [place] [address] Paula Harris PA [facility] [place] [address] 01/26/2025 9:50 AM EDT Appointment Mammography/[place] [address] Kovatch, Joan L, [facility] [place] [address] 01/26/2025 10:50 AM EDT Office [place] [address] Joan Deutsch [facility] [place] [address] documented as of this encounter Procedures Procedure Name Priority Date/Time Associated Diagnosis Comments XR JOINT TEAM ALIGNMENT AP LAT SCHUSS SKYLINE Routine 03/01/2014 8:56 AM EDT Left knee pain documented in this encounter Results * XR Joint Team alignment AP LAT Schuss [place] (03/01/2014 8:56 AM EDT) Anatomical Region Laterality [...] leg documented in this encounter Care Teams Rate Supervisor Relationship Specialty Start Date End Date Mariluz Watts MD [address] [facility] 1 [place] [address] PCP - General 08/22/10 documented as of this encounter
--- OUTSIDE RECORDS SUMMARY | 2024-05-21 06:11 | XMS_ITS | Encounter Summary ---
Author Organization [facility] [place] [address] Care Team Providers Care Warp Spinner Name Role Phone Mariluz Watts MD Primary Care Provider [phone] Encounter Details Date Type Department Care Team (Latest Contact Info) Description 12/14/2013 7:51 AM EDT - 12/14/2013 11:59 PM EDT Hospital Encounter XRay at [address] [place] [address] H/O bilateral hip replacements Social History Tobacco [...] Refills Start Date End Date LACTOBAC CMB #7-WSO-[id number] ORAL Take 1 tablet by mouth daily. [...] Office Visit General Surgery at [place] [phone] Paula Harris PA [facility] [place] [address] 01/26/2025 9:50 AM EDT Appointment Mammography/[place] [address] Jaon Deutsch APRN [facility] [place] [address] 01/26/2025 10:50 AM EDT Office [place] [address] Joan Deutsch APRN [facility] [place] [place] [address] documented as of this encounter Procedures Procedure [...] means documented in this encounter Care Teams Warp Spinner Relationship Specialty Start Date End Date Mariluz Watts MD [address] [facility] 1 [place] [address] PCP - General 08/22/10 documented as of this encounter
--- OUTSIDE RECORDS SUMMARY | 2024-05-21 06:11 | XMS_ITS | Encounter Summary ---
Author Organization [facility] [place] [address] Care Team Providers Care Car Conditioner Name Role Phone Mariluz Watts MD Primary Care Provider [phone] Encounter Details Date Type Department Care Team (Late st Contact Info) Description 03/01/2014 Orders [place] [address] Maddi Esparza, COMPUTER PROGRAMMING PROFESSOR Social History Tobacco Use Types Packs/Day Years [...] PM EST Office [place] [address] Paula Harris, PA [facility] [place] [address] 01/26/2025 9:50 AM EDT Appointment Mammography/[place] [address] Joan Deutsch [facility] [place] [address] 01/26/2025 10:50 AM EDT Office [place] [address] Joan Deutsch, [facility] [place] [address] documented as of this encounter Visit Diagnoses Not on filedocumented in this encounter Care Teams Car Conditioner Relationship Specialty Start Date End Date Mariluz Watts MD [address] [place] [address] [address] [facility] [address] [place] [address] PCP - General 08/22/10 documented as of this encounter
--- OUTSIDE RECORDS SUMMARY | 2024-05-21 06:11 | XMS_ITS | Encounter Summary ---
[place] [address] Care Team Providers Care Associate Media Planner Name Role Phone Mariluz Watts MD Primary Care Provider [phone] Reason for Visit * Reason Onset Date Comments Questions 07/07/2014 Encounter Details Date Type Department Care Team (Late st Contact Info) Description 07/07/2014 Telephone [place] [address] Kamala Mello, RN Questions Social History Tobacco [...] from a 07/25/12 that a PA from [facility] [place] - she has aortic sclerosis, stage II dysfunction. She will call there for copy of report and follow up with her PCP. documented in this encounter Plan of Treatment Upcoming Encounters Date Type Department Care Team (Late st Contact Info) Description 11/16/2024 1:00 PM EST Office Visit General Surgery at [place] [phone] Paula Harris PA [facility] [place] [address] 01/26/2025 9:50 AM EDT Appointment Mammography/DXA at [place] [phone] Joan Deutsch ENGINEERING TECHNICIAN [facility] [place] [address] 01/26/2025 10:50 AM EDT Office [place] [address]1000 Joan Deutsch ENGINEERING TECHNICIAN [facility] [place] [address] documented as of this encounter Visit Diagnoses Not on filedocumented in this encounter Care Teams Associate Media Planner Relationship Specialty Start Date End Date Mariluz Watts MD [address] [place] [address] [address] [facility] [place] [address] PCP - General 08/22/10 documented as of this encounter
--- OUTSIDE RECORDS SUMMARY | 2024-05-21 06:11 | XMS_ITS | Encounter Summary ---
[place] [address] Care Team Providers Care Environmental Services Lead Name Role Phone Mariluz Watts MD Primary Care Provider [phone] Reason for Visit * Reason Comments Medication Refill Encounter Details Date Type Department Care Team (Late Contact Info) Description 08/19/2013 Refill [place]ematology [place] [address] Nhi Chadwick CLINICAL NURSE [facility] DR HEMATOLOGY/[place] [address] Social History Tobacco Use Types Packs/Day Years [...] PM EST Office [place] [address] Paula Harris PA [facility] [place] [address] 01/26/2025 9:50 AM EDT Appointment Mammography/[place] [address] Joan Deutsch, [facility] [place] [place] [address] 01/26/2025 10:50 AM EDT Office Visit General Surgery at [place] [phone] Joan Deutsch, [facility] [place] [place] [address] documented as of this encounter Visit Diagnoses Not on filedocumented in this encounter Care Teams Environmental Services Lead Relationship Specialty Start Date End Date Mariluz Watts MD [address] [facility] [address] [facility] 1 [place] [address] PCP - General 08/22/10 documented as of this encounter
--- OUTSIDE RECORDS SUMMARY | 2024-05-21 06:11 | XMS_ITS | Encounter Summary ---
Author Organization [facility] [place] [address] Care Team Providers Care Procedural Nurse Name Role Phone Mariluz Watts MD Primary Care Provider [phone] Reason for Visit * Reason Comments Osteoarthritis Encounter Details Date Type Department Care Team (Late st Contact Info) Description 08/19/2013 10:15 AM EST Follow-[place] [address] Scar Aviles II, [facility] [place] [address] Aromatase inhibitor-associated arthralgia (Primary Dx) Discharge Disposition: [...] and as her mother was the primary table cover folder for herfather, she is now the primary table cover folder for both parents. She had been planning [...] evidence of erosions, (+) OA changes Impression: iDamond Gaming is a 67 y.o. female who [...] PM EST Office Visit General Surgery at [place] [phone] Paula Harris PA [facility] [place] [address] 01/26/2025 9:50 AM EDT Appointment Mammography/DXA at [place] [phone] Joan Deutsch APRN [facility] [place] [address] 01/26/2025 10:50 AM EDT Office Visit General Surgery at [place] [phone] Joan Deutsch, MUSIC ARRANGER [facility] [place] [address] documented as of this encounter Visit Diagnoses Diagnosis Aromatase inhibitor-associated arthralgia- Primary Pain in joint, site unspecified documented in this encounter Care Teams Procedural Nurse Relationship Specialty Start Date End Date Mariluz Watts MD [address] [place] [address] [address] [place] [address] PCP - General 08/22/10 documented as of this encounter
--- OUTSIDE RECORDS SUMMARY | 2024-05-21 06:11 | XMS_ITS | Encounter Summary ---
Author Organization [facility] [place] [address] Care Team Providers Care Spear Fisher Name Role Phone Mariluz Watts MD Primary Care Provider [phone] Reason for Referral * Physical Therapy (Routine) - Complete - Patient Will Schedule External Appt Specialty Diagnoses / Procedures Referred By Jonh lyons Referred To Contact Physical Therapy Diagnoses S/P total hip arthroplasty Francheska Buchanan PA [facility] [place] [address] Referral ID Status Reason Start Date Expiration Date Visits Requested Visits Authorized [id number] Complete - Patient Will Schedule External Appt Evaluate and Treat 12/14/2013 06/12/2014 12 12 Reason for Visit * Reason Comments Follow Up Surgery s/p left ant arslan dos 07/22/12 s/p b/l arslan Encounter Details Date Type Department Care Team (Late st Contact Info) Description 12/14/2013 8:30 AM EDT Office [place] [address] CLIN[address], DR CONV S/P Left Anterior ARSLAN- [...] Patient Name: Diamond Gaming : 1945 MR#: [id number] Date of Visit: 12/14/2013 Date: March 06, 2005 Surgeon: Kian Ervin MD Surgical Procedure Performed: Right total hip arthroplasty, cementless, sijieqy-eh-gbrfosp Components Used: Nicole Trident 52 shell outer diameter Femoral head 32-4 mm Nicole Accolade Femoral stem size 4, 127 deg Date: 07/22/2012 Surgeon: Kian Ervin MD Surgical Procedure Performed: Injection left hip with 10 cc marcaine 0.25% with epi, into skin and subcutaneous tissues (CPT [id number]) left total hip arthroplasty, anterior Hueter approach with [place] table (CPT code 84750) Left hip intraoperative radiologic examination (CPT code 33455) Amicar infusion (5 g IV load, then 1g/hr x 3 hrs) Components Used: Bison Accolade stem, size 4, 127 degrees Trident [...] use. Lives alone with her dog, an Taiwanese pratt. 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 Physical Exam: Filed Vitals: 12/14/13 0844 BP: [...] PM EST Office Visit General Surgery at [place] [phone] Paula Harris PA [facility] [place] [address] 01/26/2025 9:50 AM EDT Appointment Mammography/[place] [address] Joan Deutsch APRN [facility] [place] [address] 01/26/2025 10:50 AM EDT Office [place] [address]-1000 Joan Deutsch APRN [facility] [place] [address] Scheduled Referrals Name Type Priority Associated Diagnoses [...] means documented in this encounter Care Teams Spear Fisher Relationship Specialty Start Date End Date Mariluz Watts MD [address] [place] [address] PCP - General 08/22/10 documented as of this encounter
--- OUTSIDE RECORDS SUMMARY | 2024-05-21 06:11 | XMS_ITS | Encounter Summary ---
[place] [address] Care Team Providers Care Loop Puller Name Role Phone Mariluz Watts MD Primary Care Provider [phone] Reason for Visit * Reason Comments Breast Cancer Encounter Details Date Type Department Care Team (Late st Contact Info) Description 07/02/2014 9:00 AM EDT Follow-Up Hematology [place] [address] Abrahan Merlos MD [facility] DR HEMATOLOGY/[place] [address] Breast cancer, stage 2, right; Osteopenia Discharge [...] anastrozole in April 2015. Abrahan Merlos MD voice writing reporter in Hematology-Oncology documented in this encounter Plan of Treatment Upcoming Encounters Date Type Department Care Team (Late st Contact Info) Description 11/16/2024 1:00 PM EST Office Visit [place] [phone] Paula Harris PA [facility] [place] [address] 01/26/2025 9:50 AM EDT Appointment Mammography/[place] [address] Joan Deutsch BENDING MACHINE SET UP OPERATOR [facility] [place] [address] 01/26/2025 10:50 AM EDT Office Visit [place] [phone] Joan Deutsch BENDING MACHINE SET UP OPERATOR [facility] [place] [address] documented as of this encounter Results * Hepatic Function Panel (12/21/2014 1:27 PM EDT) Pathologist [facility] Protein, Total 7.0 6.1 - 8.0 gm/dL [...] unspecified documented in this encounter Care Teams Loop Puller Relationship Specialty Start Date End Date Mariluz Watts MD [address] [facility] [address] [place] [address] PCP - General 08/22/10 documented as of this encounter
--- OUTSIDE RECORDS SUMMARY | 2024-05-21 06:11 | XMS_ITS | Encounter Summary ---
[place] [address] Care Team Providers Care Supervisor Canvas Products Name Role Phone Mariluz Watts MD Primary Care Provider [phone] Encounter Details Date Type Department Care Team (Late st Contact Info) Description 07/02/2014 Orders Only Hematology [place] [address] Abrahan Merlos MD [facility] DR HEMATOLOGY/[place] [address] Breast cancer, stage 2, right (Primary Dx) [...] PM EST Office Visit [place] [address] Paula Harris PA [facility] [place] [address] 01/26/2025 9:50 AM EDT Appointment Mammography/DXA at [place] [phone] Joan Deutsch, [facility] [place] [address] 01/26/2025 10:50 AM EDT Office Visit General Surgery at [place] [phone] Joan Deutsch, [facility] [place] [address] documented as of this encounter Visit Diagnoses Diagnosis Breast cancer, stage 2, right- Primary documented in this encounter Care Teams Supervisor Canvas Products Relationship Specialty Start Date End Date Mariluz Watts MD [address] [facility] [address] [facility] 1 [place] [address] PCP - General 08/22/10 documented as of this encounter
--- OUTSIDE RECORDS SUMMARY | 2024-05-21 06:11 | XMS_ITS | Encounter Summary ---
[place] [address] Care Team Providers Care Development Rep Name Role Phone Mariluz Watts MD Primary Care Provider [phone] Reason for Visit * Reason Onset Date Comments Questions 02/26/2014 Encounter Details Date Type Department Care Team (Late st Contact Info) Description 02/26/2014 Telephone [place] [address] Kian Ervin MD [address] [place] [address] Questions Social History Tobacco Use Types Packs/Day [...] 03/01/14 since she has to come from [facility]. Please call her back at [phone]. documented in this encounter Plan of Treatment Upcoming Encounters Date Type Department Care Team (Late st Contact Info) Description 11/16/2024 1:00 PM EST Office Visit [place] [address] [facility] [place] [address] 01/26/2025 9:50 AM EDT Appointment Mammography/[place] [phone] [facility] [place] [address] 01/26/2025 10:50 AM EDT Office Visit [place] [address] [facility] [place] [address] documented as of this encounter Results * XR Joint Team alignment AP LAT Schuss [place] (03/01/2014 8:56 AM EDT) Anatomical Region Laterality [...] joint compartments and the right patellofemoralcompartment. Kian Ervni MD IMG DX ORDERABLES documented in this encounter Visit Diagnoses Diagnosis Left knee pain- Primary Pain in joint, lower leg Left knee pain Pain in joint, lower leg documented in this encounter Care Teams Development Rep Relationship Specialty Start Date End Date Mariluz Watts MD [address] [place] [address] PCP - General 08/22/10 documented as of this encounter
--- OUTSIDE RECORDS SUMMARY | 2024-05-21 06:11 | XMS_ITS | Encounter Summary ---
Author Organization [facility] [place] [address] Care Team Providers Care Retail Brand Ambassador Name Role Phone Mariluz Watts MD Primary Care Provider [phone] Encounter Details Date Type Department Care Team (Late st Contact Info) Description 07/02/2013 Telephone Dermatology at [facility] [address] [place] [address] Santo Gutierrez III, MD [facility] [place] [address] Social History Tobacco Use Types Packs/Day Years [...] EST Office Visit [place] [address] Paula Harris PA [facility] [place] [place] [address] 01/26/2025 9:50 AM EDT Appointment Mammography/DXA at [place] [phone] Joan Deutsch [facility] [place] [address] 01/26/2025 10:50 AM EDT Office Visit [place] [address] Joan Deutsch [facility] [place] [address] documented as of this encounter Visit Diagnoses Not on filedocumented in this encounter Care Teams Retail Brand Ambassador Relationship Specialty Start Date End Date Mariluz Watts MD [address] [place] [address] PCP - General 08/22/10 documented as of this encounter
--- OUTSIDE RECORDS SUMMARY | 2024-05-21 06:11 | XMS_ITS | Encounter Summary ---
[place] [address] Care Team Providers Care Trailer Rental Clerk Name Role Phone Mariluz Watts MD Primary Care Provider [phone] Reason for Visit * Reason Comments Follow Up Surgery Encounter Details Date Type Department Care Team (Late st Contact Info) Description 12/21/2014 1:45 PM EDT [place] [address] Bella Ly APRN [facility] [place] [address] History of breast cancer Discharge Disposition: Home [...] carcinoma with lobular features Tumor Grade: Intermediate Xvqgup-Ycivr-Fntugkvksj Score: 7 Tubular Differentiation: 3 Mitotic Rate: [...] sentinel nodes: 2 (Specimen A - Right [place] node) No. positive for carcinoma: 1 (H&E) No. with IHC (+) cells only: 0 (cells not seen by H&E, see Note*) No. negative for carcinoma: 1 (both H&E and IHC For positive nodes: Largest kristi deposit 0.2 cm Extranodal extension Absent Estrogen/Progestin receptors: Performed on blocks C2 and C11 ER immunoreactivity: Positive (see Diagnostic hanna*) VT immunoreactivity: Positive (see Diagnostic hanna*) HER2/shonda expression [...] PM EST Office [place] [address] Paula Harris PA [facility] [place] [address] 01/26/2025 9:50 AM EDT Appointment Mammography[place] [address] Joan Deutsch, [facility] [place] [address] 01/26/2025 10:50 AM EDT Office [place] [address] Joan Deutsch, [facility] [place] [address] documented as of this encounter Visit Diagnoses Diagnosis History of breast cancer Personal history of malignant neoplasm of breast documented in this encounter Care Teams Trailer Rental Clerk Relationship Specialty Start Date End Date Mariluz Watts MD [address] [place] [address] PCP - General 08/22/10 documented as of this encounter
--- OUTSIDE RECORDS SUMMARY | 2024-05-21 06:11 | XMS_ITS | Encounter Summary ---
Author Organization [facility] [address] Care Team Providers Care Repairer Controller Tester Name Role Phone Mariluz Watts MD Primary Care Provider [phone] Reason for Visit * Reason Comments Left Hip Pain hip pain Left Knee Pain knee pain Encounter Details Date Type Department Care Team (Late st Contact Info) Description 03/01/2014 8:30 AM EDT Office [place] [address] Alexandro Santiago, PA [facility] [place] [address] S/P Left Anterior ARSLAN- 07/22/12 (Dr. Ervin) [...] PM EST Office [place] [address] Paula Harris PA [facility] [place] [address] 01/26/2025 9:50 AM EDT Appointment Mammography[place] [address]-1000 Joan Deutsch APRN [facility] [place] [address] 01/26/2025 10:50 AM EDT Office [place] [address] Joan Deutsch APRN [facility] [place] [address] documented as of this encounter Results * [...] pre- procedural time-out was performed as per [facility] protocol. ?? The patient was placed supine [...] pre- procedural time-out was performed as per [facility] protocol. The patient was placed supine on [...] means documented in this encounter Care Teams Repairer Controller Tester Relationship Specialty Start Date End Date Mariluz Watts MD [address] [facility] [address] [facility] [place] [address] PCP - General 08/22/10 documented as of this encounter
--- OUTSIDE RECORDS SUMMARY | 2024-05-21 06:11 | XMS_ITS | Encounter Summary ---
Author [place] [address] Care Team Providers Care Laboratory Asst Name Role Phone Mariluz Watts MD Primary Care Provider [phone] Reason for Visit * Reason Onset Date Comments Other 12/25/2013 Encounter Details Date Type Department Care Team (Late st Contact Info) Description 12/25/2013 Tele[place] [address] Jesusita Valdes RN Other Social History Tobacco [...] PM EST Office [place] [address] Paula Harris PA [facility] [place] [address] 01/26/2025 9:50 AM EDT Appointment Mammography/[place] [address]-1000 Joan Deutsch APRN [facility] [place] [address] 01/26/2025 10:50 AM EDT Office [place] [address] Joan Deutsch APRN [facility] [place] [address] documented as of this encounter Visit Diagnoses Not on filedocumented in this encounter Care Teams Laboratory Asst Relationship Specialty Start Date End Date Mariluz Watts MD [address] [place] [address] [address] [place] [address] PCP - General 08/22/10 documented as of this encounter
--- OUTSIDE RECORDS SUMMARY | 2024-05-21 06:11 | XMS_ITS | Encounter Summary ---
Author [place] [address] Care Team Providers Care Underground Mining Section Foreman Name Role Phone Mariluz Watts MD Primary Care Provider [phone] Reason for Visit * Reason Onset Date Comments Rash 07/02/2013 Encounter Details Date Type Department Care Team (Late st Contact Info) Description 07/02/2013 Telephone [place] [address] Kimberly Ackerman RN Rash Social History Tobacco [...] EST Office Visit [place] [address]-1000 Paula Harris PA [facility] [place] [address] 01/26/2025 9:50 AM EDT Appointment Mammography/[place] [address]-1000 Joan Deutsch APRN [facility] [place] [address] 01/26/2025 10:50 AM EDT Office Visit [place] [address] Joan Deutsch, GE [facility] [place] [address] documented as of this encounter Visit Diagnoses Not on filedocumented in this encounter Care Teams Underground Mining Section Foreman Relationship Specialty Start Date End Date Mariluz Watts MD [address] [place] [address] [address] [place] [address] PCP - General 08/22/10 documented as of this encounter
--- OUTSIDE RECORDS SUMMARY | 2024-05-21 06:12 | XMS_ITS | Encounter Summary ---
Author Organization [facility] [place] [address] Care Team Providers Care Yard Cleaner Name Role Phone Mariluz Watts MD Primary Care Provider [phone] Reason for Referral * Physical Therapy (Routine) - Complete - Patient Will Schedule External Appt Specialty Diagnoses / Procedures Referred By John lyons Referred To Contact Physical Therapy Diagnoses Status post hip replacement Linsey Martinez PA [facility] [place] [address] Referral ID Status Reason Start Date Expiration Date Visits Requested Visits Authorized [id number] Complete - Patient Will Schedule External Appt Evaluate and Treat 04/21/2013 10/18/2013 12 12 * Consultation (Routine) - Closed Specialty Diagnoses / Procedures Referred By John lyons Referred To Contact Rheumatology Diagnoses Status post hip replacement Linsey Martinez PA [facility] [place] [address] [facility] [address] [place] [phone] Referral ID Status Reason Start Date Expiration Date V isits Requested Visits Authorized [id number] Closed Consult, Test & Treat 04/21/2013 10/18/2013 1 1 Reason for Visit * Reason Comments Bilateral Hip Pain SP L ARSLAN DOS 2, R ARSLAN DOS 2004 Encounter Details Date Type Department Care Team (Late st Contact Info) Description 04/21/2013 11:00 AM EDT Office [place] [address] Linsey Martinez PA [facility] [place] [address] Status post hip replacement (Primary Dx); S/P [...] PM EST Office [place] [address] Paula Harris PA [facility] [place] [address] 01/26/2025 9:50 AM EDT Appointment Mammography/[place] [address]1000 Joan Deutsch, LIFE SCIENCE TAXONOMIST [facility] [place] [address] 01/26/2025 10:50 AM EDT Office [place] [address]1000 Joan Deutsch, LIFE SCIENCE TAXONOMIST [facility] [place] [address] Scheduled Referrals Name Type Priority Associated Diagnoses [...] means documented in this encounter Care Teams Yard Cleaner Relationship Specialty Start Date End Date Mariluz Watts MD [address] [place] [address] [address] [place] [address] PCP - General 08/22/10 documented as of this encounter
--- OUTSIDE RECORDS SUMMARY | 2024-05-21 06:12 | XMS_ITS | Encounter Summary ---
[place] [address] Care Team Providers Care Real Estate Transaction Manager Name Role Phone Mariluz Watts MD Primary Care Provider [phone] Reason for Visit * Reason Comments Medication Refill Encounter Details Date Type Department Care Team (Late Contact Info) Description 08/25/2012 Refill Hematology [place] [address] Nhi Chadwick DIRECTOR OF MARKETING [facility] DR HEMATOLOGY/[place] [address] Social History Tobacco Use Types Packs/Day Years [...] PM EST Office [place] [address] Paula Harris PA [facility] [place] [address] 01/26/2025 9:50 AM EDT Appointment Mammography/[place] [address] Joan Deutsch, [facility] [place] [place] [address] 01/26/2025 10:50 AM EDT Office Visit General Surgery at [place] [phone] Joan Deutsch, [facility] [place] [place] [address] documented as of this encounter Visit Diagnoses Not on filedocumented in this encounter Care Teams Real Estate Transaction Manager Relationship Specialty Start Date End Date Mariluz Watts MD [address] [facility] 1 [place] [address] PCP - General 08/22/10 documented as of this encounter
--- OUTSIDE RECORDS SUMMARY | 2024-05-21 06:12 | XMS_ITS | Encounter Summary ---
Author Organization [facility] [place] [address] Care Team Providers Care Pattern Duplicator Name Role Phone Mariluz Watts MD Primary Care Provider [phone] Encounter Details Date Type Department Care Team (Latest Contact Info) Description 12/09/2012 9:28 AM EDT - 12/09/2012 11:59 PM EDT Hospital Encounter XRay at [address] [place] [address] Breast cancer, stage 2 Social History Tobacco [...] EST Office Visit [place] [address] Paula Harris PA [facility] [place] [address] 01/26/2025 9:50 AM EDT Appointment Mammography/[place] [address] Joan Deutsch APRN [facility] [place] [address] 01/26/2025 10:50 AM EDT Office Visit [place] [address] Joan Deutsch APRN [facility] [place] [address] documented as of this encounter Procedures Procedure [...] BMD measurements and plots are available in Genwords under the imaging tab. Paper copies will be sent to providers without Genwords access. If you have received this report without the data sheet and do not have access to Genwords, please contact Radiology Refrigeration Tech at [phone] Saturday thru Saturday 8am-4pm. Procedure Note Marly [...] not haveaccess to E-, please contact Radiology Refrigeration Tech at [phone] Saturdaythru Saturday 8am-4pm. Abrahan Merlos MD IMG DEXA ORDERABLES documented in this encounter Visit Diagnoses Diagnosis Breast cancer, stage 2 Malignant neoplasm of breast (female), unspecified site documented in this encounter Care Teams Pattern Duplicator Relationship Specialty Start Date End Date Mariluz Watts MD [address] [facility] 1 [place] [address] PCP - General 08/22/10 documented as of this encounter
--- OUTSIDE RECORDS SUMMARY | 2024-05-21 06:12 | XMS_ITS | Encounter Summary ---
Author Organization [facility] [place] [address] Care Team Providers Care Truck Crane Operator Helper Name Role Phone Mariluz Watts MD Primary Care Provider [phone] Reason for Visit * Reason Onset Date Comments Medication Problem 08/04/2012 ?dosage Encounter Details Date Type Department Care Team (Late st Contact Info) Description 08/04/2012 [place] [address] Chayo Willingham MD [facility] DR CONG [place] [address] Social History Tobacco Use Types Packs/Day Years [...] be lowered. She can be reached at [phone] eyal documented in this encounter Plan of Treatment Upcoming Encounters Date Type Department Care Team (Late st Contact Info) Description 11/16/2024 1:00 PM EST Office [place] [address] Paula Harris PA [facility] [place] [address] 01/26/2025 9:50 AM EDT Appointment Mammography/[place] [address] Joan Deutsch [facility] [place] [address] 01/26/2025 10:50 AM EDT Office [place] [address]1000 Joan Deutsch BELLING MACHINE OPERATOR [facility] [place] [address] documented as of this encounter Visit Diagnoses Not on filedocumented in this encounter Care Teams Truck Crane Operator Helper Relationship Specialty Start Date End Date Mariluz Watts MD [address] [place] [address] PCP - General 08/22/10 documented as of this encounter
--- OUTSIDE RECORDS SUMMARY | 2024-05-21 06:12 | XMS_ITS | Encounter Summary ---
Author Organization [facility] [place] [address] Care Team Providers Care Bottled Beverage Inspector Name Role Phone Mariluz Watts MD Primary Care Provider [phone] Encounter Details Date Type Department Care Team (Late st Contact Info) Description 12/03/2012 11:23 AM EST - 12/03/2012 11:59 PM [facility] Hospital Encounter XRay at [address] [place] [address] Hand pain Social History Tobacco Use Types [...] PM EST Office [place] [phone] Paula Harris PA [facility] [place] [address] 01/26/2025 9:50 AM EDT Appointment Mammography/[place] [address] Joan Deutsch APRN [facility] [place] [address] 01/26/2025 10:50 AM EDT Office [place] [address] Joan Deutsch APRN [facility] [place] [address] documented as of this encounter Procedures Procedure [...] limb documented in this encounter Care Teams Bottled Beverage Inspector Relationship Specialty Start Date End Date Mariluz Watts MD [address] [place] [address] PCP - General 08/22/10 documented as of this encounter
--- OUTSIDE RECORDS SUMMARY | 2024-05-21 06:12 | XMS_ITS | Encounter Summary ---
[place] [address] Care Team Providers Care Inspector Crystal Name Role Phone Mariluz Watts MD Primary Care Provider [phone] Reason for Visit * Reason Onset Date Comments Other 08/25/2012 Encounter Details Date Type Department Care Team (Late st Contact Info) Description 08/25/2012 Telephone Hematology [place] [address] Gemini Lawrence RN Other Social History Tobacco [...] generated foranastrozoleon 07/25/12. Prescriber Francheska BERG. Called [facility] to verify that they received the script. The last script [facility] [place] was in , 90/day supply. Patient would now be due for anotherscript. Called patient [phone] (H),to see of she has a script [...] PM EST Office [place] [phone] Paula Harris PA [facility] [place] [address] 01/26/2025 9:50 AM EDT Appointment Mammography/DXA at [place] [phone] Joan Deutsch [facility] [place] [address] 01/26/2025 10:50 AM EDT Office [place] [address]1000 Joan Deutsch WORKDAY DIRECTOR [facility] [place] [address] documented as of this encounter Visit Diagnoses Not on filedocumented in this encounter Care Teams Inspector Crystal Relationship Specialty Start Date End Date Mariluz Watts MD [address] [place] [address] [address] [place] [address] PCP - General 11/23/10 documented as of this encounter
--- OUTSIDE RECORDS SUMMARY | 2024-05-21 06:12 | XMS_ITS | Encounter Summary ---
[place] [address] Care Team Providers Care Steel Placer Name Role Phone Mariluz Watts MD Primary Care Provider [phone] Encounter Details Date Type Department Care Team (Late st Contact Info) Description 11/12/2012 Orders [place] [phone] Kian Ervin MD [address] [place] [address] Social History Tobacco Use Types Packs/Day Years [...] Office [place] [address] Paula Harris PA [facility] [place] [address] 01/26/2025 9:50 AM EDT Appointment Mammography/[place] [phone] Joan Deutsch, [facility] [place] [place] [address] 01/26/2025 10:50 AM EDT Office [place] [phone] Joan Deutsch, [facility] [place] [address] documented as of this encounter Procedures Procedure [...] Ervin MD IMG FILM LIBRARY ORD ERABLES [facility] [address] [facility] [place] [facility] [place] [address] documented in this encounter Visit Diagnoses Not on filedocumented in this encounter Care Teams Steel Placer Relationship Specialty Start Date End Date Mariluz Watts MD [address] [place] [address] PCP - General 08/22/10 documented as of this encounter
--- OUTSIDE RECORDS SUMMARY | 2024-05-21 06:12 | XMS_ITS | Encounter Summary ---
[place] [address] Care Team Providers Care Family Caseworker Name Role Phone Mariluz Watts MD Primary Care Provider Reason for Referral * Physical Therapy (Routine) - Complete - Patient Will Schedule External Appt Specialty Diagnoses / Procedures Referred By John lyons Referred To Contact Physical Therapy Diagnoses S/P total hip arthroplasty Kian Ervin MD [address] [place] [address] Referral ID Status Reason Start Date Expiration Date Visits Requested Visits Authorized [id number] Complete - Patient Will Schedule External Appt Evaluate and Treat 2 02/14/2013 1 1 Reason for Visit * Reason Comments Follow Up Surgery DOS 07/22/12 Left AN T ARSLAN Encounter Details Date Type Department Care Team (Late st Contact Info) Description 08/18/2012 12:45 PM EST Office Visit [place] [phone] Kian Ervin MD [address] [place] [address] S/P total hip arthroplasty (Primary Dx) Discharge [...] PM EST Office Visit General Surgery at [place] [phone] Paula Harris PA [facility] [place] [address] 01/26/2025 9:50 AM EDT Appointment Mammography/DXA at [place] [phone] Joan Deutsch VAMP MARKER [facility] [place] [address] 01/26/2025 10:50 AM EDT Office Visit General Surgery at [place] [phone] Joan Deutsch VAMP MARKER [facility] [place] [address] Scheduled Referrals Name Type Priority Associated Diagnoses Orde r Schedule Referral to Physical Therapy Outpatient Referral Routine S/P total hip arthroplasty Ordered: 08/18/2012 documented as of this encounter Visit Diagnoses Diagnosis S/P total hip arthroplasty- Primary Hip joint replacement by other means documented in this encounter Care Teams Family Caseworker Relationship Specialty Start Date End Date Mariluz [place] MD [address] [place] [address] [address] [facility] 1 [place] [address] PCP - General 08/22/10 documented as of this encounter
--- OUTSIDE RECORDS SUMMARY | 2024-05-21 06:12 | XMS_ITS | Encounter Summary ---
Author Organization [facility] [place] [address] Care Team Providers Care Enterprise Resource Analyst Name Role Phone Mariluz Watts MD Primary Care Provider [phone] Encounter Details Date Type Department Care Team (Latest Contact Info) Description 04/21/2013 10:35 AM EDT - 04/21/2013 11:59 PM EDT Hospital Encounter XRay at [address] [place] [address] Status post hip replacement Social History Tobacco [...] Refills Start Date End Date LACTOBAC CMB #[id number] ORAL Take 1 tablet by mouth daily. [...] topically daily. 45 g 3 12/31/2012 02/01/2014 [facility] cmb #[id number] (PROBIOTIC & ACIDOPHILUS) 300-250 million cell-mg Cap [...] PM EST Office Visit [place] [address] Paula Harris PA [facility] [place] [address] 01/26/2025 9:50 AM EDT Appointment Mammography/[place] [address] Joan Deutsch, GE [facility] [place] [address] 01/26/2025 10:50 AM EDT Office Visit [place] [address] Joan Deutsch, GE [facility] [place] [address] documented as of this encounter Procedures Procedure [...] Impression No complication or change. Procedure Note bC Carrion MD - 04/24/2013 Examination AP PELVIS [...] means documented in this encounter Care Teams Enterprise Resource Analyst Relationship Specialty Start Date End Date Mariluz [place] MD [address] [place] [address] PCP - General 08/22/10 documented as of this encounter
--- OUTSIDE RECORDS SUMMARY | 2024-05-21 06:12 | XMS_ITS | Encounter Summary ---
Author Organization [facility] [place] [address] Care Team Providers Care Men'S Custom Hair Piece Consultant Name Role Phone Mariluz [place] MD Primary Care Provider [phone] Reason for Visit * Reason Comments Follow Up Surgery Encounter Details Date Type Department Care Team (Late st Contact Info) Description 12/09/2012 9:45 AM EDT Follow-[place] [address] CLINIC, [place], [facility] [place] [address] Breast cancer (Primary Dx) Discharge Disposition: Home [...] carcinoma with lobular features Tumor Grade: Intermediate Bdsufh-Wmhkj-Hcnccvhqqi Score: 7 Tubular Differentiation: 3 Mitotic Rate: [...] sentinel nodes: 2 (Specimen A - Right [place] node) No. positive for carcinoma: 1 (H&E) No. with IHC (+) cells only: 0 (cells not seen by H&E, see Note*) No. negative for carcinoma: 1 (both H&E and IHC For positive nodes: Largest kristi deposit 0.2 cm Extranodal extension Absent Estrogen/Progestin receptors: Performed on blocks C2 and C11 ER immunoreactivity: Positive (see Diagnostic hanna*) IN immunoreactivity: Positive (see Diagnostic hanna*) HER2/shonda expression [...] PM EST Office [place] [address] Paula Harris PA [facility] [place] [address] 01/26/2025 9:50 AM EDT Appointment Mammography/[place] [address] Joan Deutsch APRN [facility] [place] [address] 01/26/2025 10:50 AM EDT Office [place] [address] Joan Deutsch, GE [facility] [place] [place] [address] documented as of this encounter Visit Diagnoses Diagnosis Breast cancer- Primary Malignant neoplasm of breast (female), unspecified site documented in this encounter Care Teams Men'S Custom Hair Piece Consultant Relationship Specialty Start Date End Date Mariluz [place] MD [address] [place] [address] PCP - General 08/22/10 documented as of this encounter
--- OUTSIDE RECORDS SUMMARY | 2024-05-21 06:12 | XMS_ITS | Encounter Summary ---
[place] [address] Care Team Providers Care Metal Furrer Name Role Phone Mariluz [place] MD Primary Care Provider [phone] Reason for Visit * Reason Onset Date Comments Rash 08/14/2012 Encounter Details Date Type Department Care Team (Late st Contact Info) Description 08/14/2012 Tele[place] [address] Kian Ervin MD [address] [place] [address] Rash Social History Tobacco Use Types Packs/Day [...] treated with doxycycline, allergy to tetracyclines, treated intermediate manager with prednisone. We will bring her in [...] Office Visit General Surgery at [place] [phone] Paula Harris PA [facility] [place] [address] 01/26/2025 9:50 AM EDT Appointment Mammography/DXA at [place] [phone] Joan Deutsch DIGITAL COORDINATOR [facility] [place] [address] 01/26/2025 10:50 AM EDT Office [place] [address]-1000 Joan Deutsch [facility] [place] [address] documented as of this encounter Visit Diagnoses Not on filedocumented in this encounter Care Teams Metal Furrer Relationship Specialty Start Date End Date Mariluz [place] MD [address] [place] [address] PCP - General 08/22/10 documented as of this encounter
--- OUTSIDE RECORDS SUMMARY | 2024-05-21 06:12 | XMS_ITS | Encounter Summary ---
Author Organization [place] [address] Care Team Providers Care Barrel Filler Name Role Phone Mariluz [place] MD Primary Care Provider [phone] Reason for Visit * Reason Comments Left Hand Pain Encounter Details Date Type Department Care Team (Late st Contact Info) Description 12/03/2012 12:30 PM EST Office [place] [address] Lev Garg MD [facility] [place] [address] Dupuytren's contracture (Primary Dx) Discharge Disposition: Home [...] NAME: Diamond Gaming AGE: 66 y.o. MR#: [id number] DATE OF VISIT: 12/03/2012 DATE OF INJURY/ONSET: June 2012 STAFF: Dr. Garg CHIEF COMPLAINT: left palm nodules HISTORY OF PRESENT ILLNESS: Ms. Gaming is a right hand dominant 66 y.o. female who comes into clinictoday for evaluation of the left hand. She was referred to [facility] by Mariluz [place] MD. The patient [...] PM EST Office Visit General Surgery at [place] [phone] Paula Harris PA [facility] [place] [address] 01/26/2025 9:50 AM EDT Appointment Mammography/DXA at [place] [phone] Joan Deutsch APRN [facility] [place] [address] 01/26/2025 10:50 AM EDT Office [place] [address] Joan Deutsch, GE [facility] [place] [address] documented as of this encounter Visit Diagnoses Diagnosis Dupuytren's contracture- Primary Contracture of palmar fascia documented in this encounter Care Teams Barrel Filler Relationship Specialty Start Date End Date Mariluz [place] MD [address] [place] [address] PCP - General 08/22/10 documented as of this encounter
--- OUTSIDE RECORDS SUMMARY | 2024-05-21 06:12 | XMS_ITS | Encounter Summary ---
Author Organization [facility] [place] [address] Care Team Providers Care Calcine Furnace Loader Name Role Phone Mariluz [place] MD Primary Care Provider [phone] Reason for Visit * Reason Onset Date Comments Medication Refill 01/06/2013 [facility] calling for a refill Encounter Details Date Type Department Care Team (Late st Contact Info) Description 01/06/2013 Telephone Dermatology at [facility] [address] [place] [address] Chayo Willingham MD [facility] [place] [address] Medication Refill ([facility] calling for a refill) Social History [...] AM EDT Dr Willingham patient Levon from [facility] calling for a refill of benjamin-tab 250 mildavid lanie documented in this encounter Plan of Treatment Upcoming Encounters Date Type Department Care Team (Late st Contact Info) Description 11/16/2024 1:00 PM EST Office Visit [place] [address] Paula Harris PA [facility] [place] [address] 01/26/2025 9:50 AM EDT Appointment Mammography/DXA at [place] [phone] Joan Deutsch [facility] [place] [address] 01/26/2025 10:50 AM EDT Office Visit General Surgery at [place] [phone] Joan Deutsch [facility] [place] [address] documented as of this encounter Visit Diagnoses Not on filedocumented in this encounter Care Teams Calcine Furnace Loader Relationship Specialty Start Date End Date Mariluz [place] MD [address] [place] [address] PCP - General 08/22/10 documented as of this encounter
--- OUTSIDE RECORDS SUMMARY | 2024-05-21 06:12 | XMS_ITS | Encounter Summary ---
Author Organization [facility] [place] [address] Care Team Providers Care Basketball Referee Name Role Phone Mariluz Watts MD Primary Care Provider [phone] Encounter Details Date Type Department Care Team (Late st Contact Info) Description 11/19/2012 External Results XRay at [address] [place] [phone] Diego Melendrez MD [address] [place] [address] Social History Tobacco Use Types Packs/Day Years [...] PM EST Office Visit General Surgery at [facility] [place] [phone] Paula Harris PA [facility] [place] [address] 01/26/2025 9:50 AM EDT Appointment Mammography/[place] [phone] Joan Deutsch, GE [facility] [place] [address] 01/26/2025 10:50 AM EDT Office [place] [phone] Joan Deutsch, BARREL LATHE OPERATOR [facility] [place] [place] [address] documented as of this encounter Procedures Procedure Name Priority Date/Time Associated Diagnosis Comments DIAGNOSTIC RADIOLOGY SCAN Routine 11/12/2012 documented in this encounter Results * Scan Doc: Diagnostic Radiology (11/12/2012) Anatomical Region Laterality Modality Other Diego Melendrez MD MEDIA MGR SCAN EXT O RDR/RSLT documented in this encounter Visit Diagnoses Not on filedocumented in this encounter Care Teams Basketball Referee Relationship Specialty Start Date End Date Mariluz Watts MD [address] [place] [address] [address] [place] [address] PCP - General 08/22/10 documented as of this encounter
--- OUTSIDE RECORDS SUMMARY | 2024-05-21 06:12 | XMS_ITS | Encounter Summary ---
[place] [address] Care Team Providers Care Senior Net Software Engineer Name Role Phone Mariluz Watts MD Primary Care Provider [phone] Encounter Details Date Type Department Care Team (Late st Contact Info) Description 06/03/2013 12:54 PM EDT - 06/03/2013 11:59 PM EDT Hospital [place] [address] CLINIC, Mariluz Hidalgo MD [address] [place] [address] [address] [facility] 1 [place], [place] [id number] Discharge Disposition: Home Social History Tobacco Use [...] Refills Start Date End Date LACTOBAC CMB #[id number] ORAL Take 1 tablet by mouth daily. [...] 45 g 3 12/31/2012 02/01/2014 lactobac cmb #[id number] (PROBIOTIC & ACIDOPHILUS) 300-250 million cell-mg Cap [...] PM EST Office [place] [phone] Paula Harris PA [facility] [place] [address] 01/26/2025 9:50 AM EDT Appointment Mammography/[place] [phone] Joan Deutsch APRN [facility] [place] [address] 01/26/2025 10:50 AM EDT Office [place] [phone] Joan Deutsch APRN [facility] [place] [address] documented as of this encounter Procedures Procedure [...] of the clinical situation. (Reference-Emyk et al, [id number]) Findings: (prevalence in patients without low back pain), Diskdegeneration (decreased T2 signal, height loss, bulge) (91%), Disk T2-signal loss(83%), Disk height loss (56%), Disk bulge (64%), Disk protrusion (32%), Annular fissure (38%). Film and interpretation reviewed by the attending Mariluz Watts MD IMG MRI ORDERABLES documented in this encounter Visit Diagnoses Not on filedocumented in this encounter Care Teams Senior Net Software Engineer Relationship Specialty Start Date End Date Mariluz Watts MD [address] [place] [address] PCP - General 08/22/10 documented as of this encounter
--- OUTSIDE RECORDS SUMMARY | 2024-05-21 06:12 | XMS_ITS | Encounter Summary ---
[place] [address] Care Team Providers Care Trains Dispatcher Supervisor Name Role Phone Mariluz Watts MD Primary Care Provider [phone] Encounter Details Date Type Department Care Team (Late st Contact Info) Description 07/28/2012 [place] [address] Taz Morales RN Social History Tobacco Use [...] PM EST Office [place] [address] Paula Harris PA [facility] [place] [address] 01/26/2025 9:50 AM EDT Appointment Mammography/[place] [phone] Joan Deutsch APRN [facility] [place] [address] 01/26/2025 10:50 AM EDT Office [place] [address] Joan Deutsch APRN [facility] [place] [address] documented as of this encounter Visit Diagnoses Not on filedocumented in this encounter Care Teams Trains Dispatcher Supervisor Relationship Specialty Start Date End Date Mariluz Watts MD [address] [place], [place] [address]Y [address] [place] [address] PCP - General 08/22/10 documented as of this encounter
--- OUTSIDE RECORDS SUMMARY | 2024-05-21 06:12 | XMS_ITS | Encounter Summary ---
[place] [address] Care Team Providers Care Toll Settlement Clerk Name Role Phone Mariluz Watts MD Primary Care Provider [phone] Reason for Visit * Reason Onset Date Comments Other 05/25/2013 Follow Up Encounter Details Date Type Department Care Team (Late st Contact Info) Description 05/25/2013 [place] [address] Kimberly Ackerman RN Other (Follow Up) Social [...] PM EST Office [place] [phone] Paula Harris PA [facility] [place] [address] 01/26/2025 9:50 AM EDT Appointment Mammography/[place] [phone] Joan Deutsch APRN [facility] [place] [address] 01/26/2025 10:50 AM EDT Office [place] [address]-1000 Joan Deutsch APRN [facility] [place] [address] documented as of this encounter Visit Diagnoses Not on filedocumented in this encounter Care Teams Toll Settlement Clerk Relationship Specialty Start Date End Date Mariluz Watts MD [address] [place] [address] [address] [place] [address] PCP - General 08/22/10 documented as of this encounter
--- OUTSIDE RECORDS SUMMARY | 2024-05-21 06:12 | XMS_ITS | Encounter Summary ---
Author Organization [facility] [place] [address] Care Team Providers Care Perforator Operator Name Role Phone Mariluz Watts MD Primary Care Provider [phone] Encounter Details Date Type Department Care Team (Late st Contact Info) Description 05/04/2013 Orders [place] [phone] Debbi Hansen, RN Breast cancer (Primary Dx) [...] PM EST Office [place] [address]-1000 Paula Harris PA [facility] [place] [address] 01/26/2025 9:50 AM EDT Appointment Mammography/DXA at [place] [phone] Joan Deutsch [facility] [place] [address] 01/26/2025 10:50 AM EDT Office [place] [phone] Joan Deutsch [facility] [place] [address] documented as of this encounter Visit Diagnoses Diagnosis Breast cancer- Primary Malignant neoplasm of breast (female), unspecified site documented in this encounter Care Teams Perforator Operator Relationship Specialty Start Date End Date Mariluz Watts MD [address] [place] [address] PCP - General 08/22/10 documented as of this encounter
--- OUTSIDE RECORDS SUMMARY | 2024-05-21 06:12 | XMS_ITS | Encounter Summary ---
Author Organization [facility] [place] [address] Care Team Providers Care Professional Driver Name Role Phone Mariluz Watts MD Primary Care Provider [phone] Encounter Details Date Type Department Care Team (Late st Contact Info) Description 09/03/2012 Orders [place] [address] Lev Garg MD [facility] [place] [address] Hand pain (Primary Dx) Social History Tobacco [...] PM EST Office [place] [phone] Paula Harris PA [facility] [place] [address] 01/26/2025 9:50 AM EDT Appointment Mammography/[place] [address] Joan Deutsch, GE [facility] [place] [address] 01/26/2025 10:50 AM EDT Office [place] [address]-1000 Joan Deutsch, SLOT ATTENDANT [facility] [place] [address] documented as of this encounter Results * [...] limb documented in this encounter Care Teams Professional Driver Relationship Specialty Start Date End Date Mariluz Watts MD [address] [place] [address] [address] [facility] 1 [place] [address] PCP - General 08/22/10 documented as of this encounter
--- OUTSIDE RECORDS SUMMARY | 2024-05-21 06:12 | XMS_ITS | Encounter Summary ---
Author Organization [facility] [place] [address] Care Team Providers Care Pet Adoption Counselor Name Role Phone Mariluz aWtts MD Primary Care Provider Encounter Details Date Type Department Care Team (Late Contact Info) Description 05/25/2013 Orders [place] [address] Scar Aviles II, [facility] [place] [address] Social History Tobacco Use Types Packs/Day Years [...] PM EST Office [place] [address]-1000 Paula Harris, [facility] [place] [address] 01/26/2025 9:50 AM EDT Appointment Mammography/[place] [address]-1000 Joan Deutsch, GE [facility] [place] [address] 01/26/2025 10:50 AM EDT Office Visit [place] [address]-1000 Joan Deutsch, GE [facility] [place] [address] documented as of this encounter Visit Diagnoses Not on filedocumented in this encounter Care Teams Pet Adoption Counselor Relationship Specialty Start Date End Date Mariluz Watts MD [address] [place] [address] PCP - General 08/22/10 documented as of this encounter
--- OUTSIDE RECORDS SUMMARY | 2024-05-21 06:12 | XMS_ITS | Encounter Summary ---
[place] [address] Care Team Providers Care Cotton Weigher Name Role Phone Mariluz Watts MD Primary Care Provider [phone] Encounter Details Date Type Department Care Team (Late st Contact Info) Description 04/21/2013 [place] [address] Kian Ervin MD [address] [place] [address] Social History Tobacco Use Types Packs/Day Years [...] and down stairs. Called transferred to the dental secretary to make an appointment with one of Dr Ervin's associates. Surgical Procedure Performed: Injection left hip with 10 cc marcaine 0.25% with epi, into skin and subcutaneous tissues (CPT [id number]) left total hip arthroplasty, anterior Hueter approach with Jefferson table (CPT code 31767) Left hip intraoperative radiologic examination (CPT code 68257) Amicar infusion (5 g IV load, then 1g/hr x 3 hrs) documented in this encounter Plan of Treatment Upcoming Encounters Date Type Department Care Team (Late st Contact Info) Description 11/16/2024 1:00 PM EST Office [place] [address] Paula Harris PA [facility] [place] [address] 01/26/2025 9:50 AM EDT Appointment Mammography/DXA at [place] [phone] Joan Deutsch VITICULTURE TEACHER [facility] [place] [address] 01/26/2025 10:50 AM EDT Office [place] [address]-1000 Joan Deutsch VITICULTURE TEACHER [facility] [place] [address] documented as of this encounter Visit Diagnoses Not on filedocumented in this encounter Care Teams Cotton Weigher Relationship Specialty Start Date End Date Mariluz Watts MD [address] [place] [address] PCP - General 08/22/10 documented as of this encounter
--- OUTSIDE RECORDS SUMMARY | 2024-05-21 06:12 | XMS_ITS | Encounter Summary ---
[place] [address] Care Team Providers Care Fiberglass Pipe Covering Supervisor Name Role Phone Mariluz Watts MD Primary Care Provider [phone] Encounter Details Date Type Department Care Team (Latest Contact Info) Description 12/09/2012 9:28 AM EDT - 12/09/2012 11:59 PM EDT Hospital Encounter [place] [address] Malignant neoplasm of breast (female), unspecified site [...] PM EST Office Visit [place] [address] Paula Harris PA [facility] [place] [address] 01/26/2025 9:50 AM EDT Appointment Mammography/[place] [address]-1000 Joan Deutsch APRN [facility] [place] [address] 01/26/2025 10:50 AM EDT Office Visit [place] [address] Joan Deutsch APRN [facility] [place] [address] documented as of this encounter Procedures Procedure [...] site documented in this encounter Care Teams Fiberglass Pipe Covering Supervisor Relationship Specialty Start Date End Date Mariluz Watts MD [address] [place] [address] PCP - General 08/22/10 documented as of this encounter
--- OUTSIDE RECORDS SUMMARY | 2024-05-21 06:12 | XMS_ITS | Encounter Summary ---
Author Organization [facility] [place] [address] Care Team Providers Care Country Sales Manager Name Role Phone Mariluz Watts MD Primary Care Provider [phone] Encounter Details Date Type Department Care Team (Late st Contact Info) Description 05/04/2013 Orders [place] [address]-1000 Morgan Kong MD [facility] [place] [address] Right foot pain (Primary Dx) Social History [...] PM EST Office [place] [address] Paula Harris PA [facility] [place] [address] 01/26/2025 9:50 AM EDT Appointment Mammography/[place] [address]-1000 Joan Deutsch, GE [facility] [place] [address] 01/26/2025 10:50 AM EDT Office [place] [address]-1000 Joan Deutsch, GE [facility] [place] [address] documented as of this encounter Results * [...] limb documented in this encounter Care Teams Country Sales Manager Relationship Specialty Start Date End Date Mariluz Watts MD [address] [facility] 1 [place] [address] PCP - General 08/22/10 documented as of this encounter
--- OUTSIDE RECORDS SUMMARY | 2024-05-21 06:12 | XMS_ITS | Encounter Summary ---
Author Organization [facility] [place] [address] Care Team Providers Care Radiopharmacist Name Role Phone Mariluz Watts MD Primary Care Provider [phone] Reason for Visit * Reason Comments Medication Refill Encounter Details Date Type Department Care Team (Late Contact Info) Description 01/01/2013 Refill Dermatology at [place] [address] [place] [address] Chayo Willingham MD [facility] [place] [address] Social History Tobacco Use Types Packs/Day Years [...] Office Visit General Surgery at [place] [phone] Paula Harris, PA [facility] [place] [address] 01/26/2025 9:50 AM EDT Appointment Mammography/[place] [address] Joan Deutsch, [facility] [place] [address] 01/26/2025 10:50 AM EDT Office [place] [address] Joan Deutsch, [facility] [place] [address] documented as of this encounter Visit Diagnoses Not on filedocumented in this encounter Care Teams Radiopharmacist Relationship Specialty Start Date End Date Mariluz Watts MD [address] [place] [address] PCP - General 08/22/10 documented as of this encounter
--- OUTSIDE RECORDS SUMMARY | 2024-05-21 06:12 | XMS_ITS | Encounter Summary ---
Author Organization [facility] [place] [address] Care Team Providers Care Peanut Farmer Name Role Phone Mariluz Watts MD Primary Care Provider [phone] Reason for Visit * Reason Onset Date Comments Medication Refill 08/27/2012 Encounter Details Date Type Department Care Team (Late Contact Info) Description 08/27/2012 Refill Dermatology at [facility] [address] [place] [address] Chayo Willingham MD [facility] [place] [address] Rosacea (Primary Dx) Social History Tobacco Use [...] PM EST Office [place] [address] Paula Harris PA [facility] [place] [address] 01/26/2025 9:50 AM EDT Appointment Mammography/DXA at [place] [phone] Joan Deutsch APRN [facility] [place] [address] 01/26/2025 10:50 AM EDT Office Visit General Surgery at [place] [phone] Joan Deutsch, CEMENT TRUCK LOADER [facility] [place] [address] documented as of this encounter Visit Diagnoses Diagnosis Rosacea- Primary documented in this encounter Care Teams Peanut Farmer Relationship Specialty Start Date End Date Mariluz Watts MD [address] [facility] [place] [address] PCP - General 08/22/10 documented as of this encounter
--- OUTSIDE RECORDS SUMMARY | 2024-05-21 06:12 | XMS_ITS | Encounter Summary ---
Author Organization [place] [address] Care Team Providers Care Emergency Room Technician Name Role Phone Mariluz Watts MD Primary Care Provider [phone] Reason for Visit * Reason Comments Aftercare Of [facility] S/P LEFT ANT ARSLAN DOS 07/22/12 WITH R HIP PAIN FALL 11/12/12 RIGHT ARSLAN 03/06/05 Encounter Details Date Type Department Care Team (Late st Contact Info) Description 12/22/2012 12:10 PM EDT Office [place] [address] Kian Ervin MD [address] [place] [address] S/P Left Anterior ARSLAN- 07/22/12 (Dr. Ervin) [...] epi, into skin and subcutaneous tissues (CPT [id number]) left total hip arthroplasty, anterior Hueter approach with [place] table (CPT code 76237) Left hip intraoperative radiologic examination (CPT code 67691) Amicar infusion (5 g IV load, then 1g/hr x 3 hrs) Components Used: [facility] Accolade stem, size 4, 127 degrees Trident [...] Office Visit General Surgery at [place] [phone] Paula Harris PA [facility] [place] [address] 01/26/2025 9:50 AM EDT Appointment Mammography[place] [address] Joan Deutsch APRN [facility] [place] [address] 01/26/2025 10:50 AM EDT Office [place] [address]1000 Joan Deutsch APRN [facility] [place] [address] documented as of this encounter Visit Diagnoses Diagnosis S/P Left Anterior ARSLAN- 07/22/12 (Dr. Ervin)- Primary Hip joint replacement by other means Status post hip replacement Hip joint replacement by other means documented in this encounter Care Teams Emergency Room Technician Relationship Specialty Start Date End Date Mariluz Watts MD [address] [place] [address] PCP - General 08/22/10 documented as of this encounter
--- OUTSIDE RECORDS SUMMARY | 2024-05-21 06:12 | XMS_ITS | Encounter Summary ---
Author Organization [facility] [place] [address] Care Team Providers Care Return Agent Name Role Phone Mariluz Watts MD Primary Care Provider Reason for Visit * Reason Comments Right Foot Pain pain X5 years Encounter Details Date Type Department Care Team (Late st Contact Info) Description 05/22/2013 9:45 AM EDT Office [place] [address] Morgan Kong MD [facility] [place] [address] Ventura Richards PA [facility] [place] [address] Arthritis of right foot (Primary Dx) Discharge [...] NAME: Diamond Gaming AGE: 67 y.o. MR#: [id number] DATE OF VISIT: 05/22/2013 DATE OF INJURY/ONSET: [...] sural, deep peroneal, superficial peroneal nerve distributions. [place] Reece Monofilament 5.07 RADIOLOGICAL STUDIES: I independent [...] PM EST Office [place] [address]-1000 Paula Harris PA [facility] [place] [address] 01/26/2025 9:50 AM EDT Appointment Mammography/[place] [address]656356-1000 Joan Deutsch APRN [facility] [place] [address] 01/26/2025 10:50 AM EDT Office [place] [address]-1000 Joan Deutsch APRN [facility] [place] [address] documented as of this encounter Visit Diagnoses Diagnosis Arthritis of right foot- Primary Unspecified arthropathy, ankle and foot documented in this encounter Care Teams Return Agent Relationship Specialty Start Date End Date Mariluz Watts MD [address] [facility] 1 [place] [address] PCP - General 08/22/10 documented as of this encounter
--- OUTSIDE RECORDS SUMMARY | 2024-05-21 06:12 | XMS_ITS | Encounter Summary ---
Author Organization [facility] [place] [address] Care Team Providers Care Stem Roller Or Crusher Operator Name Role Phone Mariluz Watts MD Primary Care Provider [phone] Reason for Visit * Reason Comments Wound Evaluation SP L ARSLAN DOS 2- PT STATES THAT SHE HAS A RASH Encounter Details Date Type Department Care Team (Late st Contact Info) Description 08/14/2012 1:30 PM EST [place] [address] CLINIC, DR BRAY Discharge Disposition: Home Social [...] Office Visit General Surgery at [place] [phone] Paula Harris PA [facility] [place] [address] 01/26/2025 9:50 AM EDT Appointment Mammography/DXA at [place] [phone] Joan Deutsch [facility] [address] 01/26/2025 10:50 AM EDT Office [place] [address]-1000 Joan Deutsch [facility] [place] [address] documented as of this encounter Visit Diagnoses Not on filedocumented in this encounter Care Teams Stem Roller Or Crusher Operator Relationship Specialty Start Date End Date Mariluz Watts MD [address] [place] [address] PCP - General 08/22/10 documented as of this encounter
--- OUTSIDE RECORDS SUMMARY | 2024-05-21 06:12 | XMS_ITS | Encounter Summary ---
Author Organization [facility] [place] [address] Care Team Providers Care Tax Advisor Name Role Phone Mariluz Watts MD Primary Care Provider [phone] Reason for Visit * Reason Comments Rosacea Encounter Details Date Type Department Care Team (Late st Contact Info) Description 12/31/2012 1:50 PM EDT Follow-Up Dermatology at [facility] [address] [place] [address] Chayo Willingham MD [facility] [place] [address] Sebaceous hyperplasia (Primary Dx); Rosacea Discharge Disposition: [...] supervision with direct supervision immediately available. (definition: [facility] GME Policy Statement on Graduate Medical Education, [...] questions/concerns. Chayo Willingham MD Resident in Dermatology [facility] Patient seen and evaluated with staff signal system testing maintainer: Meagan Johnson MD Section of Dermatology [facility] documented in this encounter Plan of Treatment Upcoming Encounters Date Type Department Care Team (Late st Contact Info) Description 11/16/2024 1:00 PM EST Office Visit [place] [address] Paula Harris PA [facility] [place] [address] 01/26/2025 9:50 AM EDT Appointment Mammography/[place] [address] Joan Deutsch [facility] [place] [address] 01/26/2025 10:50 AM EDT Office Visit General Surgery at [place] [address] Joan Deutsch ELECTRIC SCOOP OPERATOR [facility] [place] [address] documented as of this encounter Visit Diagnoses Diagnosis Sebaceous hyperplasia- Primary Other specified disease of sebaceous glands Rosacea documented in this encounter Care Teams Tax Advisor Relationship Specialty Start Date End Date Mariluz Watts MD [address] [place] [address] [address] [place] [address] PCP - General 08/22/10 documented as of this encounter
--- OUTSIDE RECORDS SUMMARY | 2024-05-21 06:12 | XMS_ITS | Encounter Summary ---
Author Organization [facility] [place] [address] Care Team Providers Care Excavating Contractor Name Role Phone Mariluz Watts MD Primary Care Provider [phone] Encounter Details Date Type Department Care Team (Latest Contact Info) Description 08/18/2012 11:20 AM EST - 08/18/2012 11:59 PM [facility] Hospital Encounter XRay at [address] [place] [address] DJD (degenerative joint disease) of hip Social [...] PM EST Office [place] [phone] Paula Harris PA [facility] [place] [address] 01/26/2025 9:50 AM EDT Appointment Mammography/[place] [address] Joan Deutsch, DATA SOLUTIONS ARCHITECT [facility] GENERAL SURGERY [place] [id number] 01/26/2025 10:50 AM EDT Office [place] [address] Joan Deutsch APRN [facility] [place] [address] documented as of this encounter Procedures Procedure [...] thigh documented in this encounter Care Teams Excavating Contractor Relationship Specialty Start Date End Date Mariluz Watts MD [address] [place] [address] PCP - General 08/22/10 documented as of this encounter
--- OUTSIDE RECORDS SUMMARY | 2024-05-21 06:12 | XMS_ITS | Encounter Summary ---
[place] [address] Care Team Providers Care Brake Tester Name Role Phone Mariluz Watts MD Primary Care Provider [phone] Reason for Visit * Reason Onset Date Comments Medication Refill 08/25/2012 Encounter Details Date Type Department Care Team (Late st Contact Info) Description 08/25/2012 Refill Hematology [place] [address] Gemini Lawrence RN Social History Tobacco Use [...] EST Office Visit [place] [address] Paula Harris PA [facility] [place] [address] 01/26/2025 9:50 AM EDT Appointment Mammography/DXA at [place] [phone] Joan Deutsch, [facility] [place] [address] 01/26/2025 10:50 AM EDT Office Visit [place] [address] Joan Deutsch, [facility] [place] [address] documented as of this encounter Visit Diagnoses Not on filedocumented in this encounter Care Teams Brake Tester Relationship Specialty Start Date End Date Mariluz Watts MD [address] [facility] [address] [facility] [address] [place] [address] PCP - General 08/22/10 documented as of this encounter
--- OUTSIDE RECORDS SUMMARY | 2024-05-21 06:12 | XMS_ITS | Encounter Summary ---
Author Organization [facility] [place] [address] Care Team Providers Care Component Lab Tech Name Role Phone Mariluz Watts MD Primary Care Provider [phone] Reason for Visit * Reason Comments Follow-up Encounter Details Date Type Department Care Team (Late st Contact Info) Description 12/09/2012 11:30 AM EDT Follow-Up Hematology [place] [address] CLINIC, DR KATARINA Merlos, Abrahan Chavarria MD [facility] DR HEMATOLOGY/[place] [address] Breast cancer, stage 2 (Primary Dx) Discharge [...] instead of the hip. You are now custodial through five years of anastrozole. I'll see [...] followup in six months. Abrahan Merlos MD die lay out worker in Hematology-Oncology documented in this encounter Plan of Treatment Upcoming Encounters Date Type Department Care Team (Late st Contact Info) Description 11/16/2024 1:00 PM EST Office Visit General Surgery at [place] [phone] Paula Harris PA [facility] [place] [address] 01/26/2025 9:50 AM EDT Appointment Mammography/[place] [address] Joan Deutsch, [facility] [place] [address] 01/26/2025 10:50 AM EDT Office [place] [address] Joan Deutsch, [facility] [place] [address] documented as of this encounter Visit Diagnoses Diagnosis Breast cancer, stage 2- Primary Malignant neoplasm of breast (female), unspecified site documented in this encounter Care Teams Component Lab Tech Relationship Specialty Start Date End Date Mariluz Watts MD [address] [place] [address] [address] PCP - General 08/22/10 documented as of this encounter
--- OUTSIDE RECORDS SUMMARY | 2024-05-21 06:12 | XMS_ITS | Encounter Summary ---
Author Organization [facility] [place] [address] Care Team Providers Care Mobile Ui Designer Name Role Phone Mariluz Watts MD Primary Care Provider [phone] Reason for Visit * Reason Comments Joint Pain Encounter Details Date Type Department Care Team (Latest Contact Info) Description 05/20/2013 10:45 AM EDT Office [place] [address] Scar Aviles II, [facility] [place] [address] Osteoarthritis (Primary Dx); Aromatase inhibitor-associated arthralgia Discharge [...] PM EST Office Visit General Surgery at [place] [phone] Paula Harris PA [facility] GENERAL [place] [address] 01/26/2025 9:50 AM EDT Appointment Mammography/[place] [address] Joan Deutsch APRN [facility] GENERAL [place] [address] 01/26/2025 10:50 AM EDT Office [place] [address] Joan Deutsch APRN [facility] GENERAL [place] [address] documented as of this encounter Visit Diagnoses Diagnosis Osteoarthritis- Primary Osteoarthrosis, unspecified whether generalized or localized, unspecified site Aromatase inhibitor-associated arthralgia Pain in joint, site unspecified documented in this encounter Care Teams Mobile Ui Designer Relationship Specialty Start Date End Date Mariluz Watts MD [address] [place] [address] PCP - General 08/22/10 documented as of this encounter
--- OUTSIDE RECORDS SUMMARY | 2024-05-21 06:12 | XMS_ITS | Encounter Summary ---
Author Organization [facility] [place] [address] Care Team Providers Care Electrical Machinist Name Role Phone Mariluz Watts MD Primary Care Provider [phone] Encounter Details Date Type Department Care Team (Latest Contact Info) Description 05/22/2013 8:55 AM EDT - 05/22/2013 11:59 PM EDT Hospital Encounter XRay at [address] [place] [address] Right foot pain Social History Tobacco Use [...] Refills Start Date End Date LACTOBAC CMB #[id number] ORAL Take 1 tablet by mouth daily. [...] 45 g 3 12/31/2012 02/01/2014 lactobac cmb #[id number] (PROBIOTIC & ACIDOPHILUS) 300-250 million cell-mg Cap [...] PM EST Office [place] [address] [facility] [place] [address] 01/26/2025 9:50 AM EDT Appointment Mammography/[place] [address] [facility] [place] [address] 01/26/2025 10:50 AM EDT Office [place] [address] [facility] [place] [address] documented as of this encounter Procedures Procedure [...] Mildly prominent plantar calcaneal spur. Procedure Note Devauhgn Barber MD - 05/22/2013 Test weightbearing. Examination [...] limb documented in this encounter Care Teams Electrical Machinist Relationship Specialty Start Date End Date Mariluz Watts MD [address] [place] [address] PCP - General 08/22/10 documented as of this encounter
--- OUTSIDE RECORDS SUMMARY | 2024-05-21 06:12 | XMS_ITS | Encounter Summary ---
Author Organization [facility] [place] [address] Care Team Providers Care Bursar Name Role Phone Mariluz Watts MD Primary Care Provider [phone] Encounter Details Date Type Department Care Team (Late st Contact Info) Description 08/04/2012 [place] [address] Chayo Willingham MD [facility] [place] [address] Rosacea (Primary Dx) Social History Tobacco Use [...] encounter Miscellaneous Notes * Telephone Encounter - Seu Cristobal LPN - 08/08/2012 2:05 PM EST [...] to decrease and have rx sent to [facility] pharmacy. documented in this encounter Plan of Treatment Upcoming Encounters Date Type Department Care Team (Late st Contact Info) Description 11/16/2024 1:00 PM EST Office [place] [address] Paula Harris PA [facility] [place] [address] 01/26/2025 9:50 AM EDT Appointment Mammography/[place] [address] Joan Deutsch APRN [facility] [place] [address] 01/26/2025 10:50 AM EDT Office [place] [address] Joan Deutsch APRN [facility] [place] [address] documented as of this encounter Visit Diagnoses Diagnosis Rosacea- Primary documented in this encounter Care Teams Bursar Relationship Specialty Start Date End Date Mariluz Watts MD [address] [place] [address] PCP - General 08/22/10 documented as of this encounter
--- OUTSIDE RECORDS SUMMARY | 2024-05-21 06:12 | XMS_ITS | Encounter Summary ---
[place] [address] Care Team Providers Care Incendiaries Supervisor Name Role Phone Mariluz Watts MD Primary Care Provider [phone] Reason for Visit * Reason Onset Date Comments Pharyngitis 03/16/2013 Other Encounter Details Date Type Department Care Team (Late st Contact Info) Description 03/16/2013 Telephone Hematology [place] [address] Nancy Ceron Pharyngitis; Social History Tobacco Use [...] EDT SatMarch 16, 2013 2:54 PM To: Nnacy Ceron RN Message Patient has a cold and sore throat went to PCP for few weeks. Put her on penicillin but is not helping. She can be reached at [phone]. Returned call to the pt. Nasal quality [...] however her symtpms may be r/t to children's service supervisor. Suggested she return to her PCP for [...] PM EST Office [place] [address] Paula Harris PA [facility] [place] [address] 01/26/2025 9:50 AM EDT Appointment Mammography/[place] [address] Joan Deutsch APRN [facility] [place] [address] 01/26/2025 10:50 AM EDT Office [place] [address] Joan Deutsch APRN [facility] [place] [address] documented as of this encounter Visit Diagnoses Not on filedocumented in this encounter Care Teams Incendiaries Supervisor Relationship Specialty Start Date End Date Mariluz Watts MD [address] [place] [address] PCP - General 08/22/10 documented as of this encounter
--- OUTSIDE RECORDS SUMMARY | 2024-05-21 06:13 | XMS_ITS | Encounter Summary ---
Author Organization [facility] [place] [address] Care Team Providers Care Insurance Verification Representative Name Role Phone Mariluz Watts MD Primary Care Provider [phone] Encounter Details Date Type Department Care Team (Late st Contact Info) Description 07/22/2012 3:42 PM EDT Anesthesia [place] [address] Terry Membreno MD [facility] ANEST[place]ESI[place] [address] Cornell Leija CRNA [facility] [place] [address] Anesthesia Record Procedure Summary Procedure Name Responsible [...] Procedure Performed: Right total hip arthroplasty, cementless, scrofyc-il-dxyhawo Components Used: Nina Trident 52 shell outer diameter Femoral head 32-4 mm [place] Accolade Femoral stem size 4, 127 deg [...] risks discussed with patient. Plan discussed with PILOT CONTROL OPERATOR HELPER. Misc. Assessment: documented in this encounter Miscellaneous Notes * Addendum Note - Charity Gomez - 07/23/2012 11:18 AM EDT Addendum created 07/23/12 1118 by Charity Gomez Modules edited:Anesthesia Events, Anesthesia Responsible Staff documented in this encounter Plan of Treatment Upcoming Encounters Date Type Department Care Team (Late st Contact Info) Description 11/16/2024 1:00 PM EST Office [place] [address] Paula Harris PA [facility] [place] [address] 01/26/2025 9:50 AM EDT Appointment Mammography/DXA at [place] [phone] Joan Deutsch [facility] [place] [address] 01/26/2025 10:50 AM EDT Office Visit General Surgery at [place] [phone] Joan Deutsch APARTMENT MAINTENANCE TECHNICIAN [facility] [place] [address] documented as of this encounter Visit Diagnoses Not on filedocumented in this encounter Care Teams Insurance Verification Representative Relationship Specialty Start Date End Date Mariluz Watts MD [address] [place] [address] [address] [place] [address] PCP - General 08/22/10 documented as of this encounter
--- OUTSIDE RECORDS SUMMARY | 2024-05-21 06:13 | XMS_ITS | Encounter Summary ---
Author Organization [facility] [place] [address] Care Team Providers Care Retail Visual Merchandiser Name Role Phone Mariluz Watts MD Primary Care Provider [phone] Encounter Details Date Type Department Care Team (Late st Contact Info) Description 02/29/2012 12:00 PM EDT - 02/29/2012 1:00 PM EDT Surgery [place] [address] Gallito Lincoln MD [facility] [place] [place] [address] COLONOSCOPY, DIAGNOSTIC (WRVU 3.26) Social History Tobacco [...] - 02/29/2012 1:01 PM EDT Please call [phone], before 5pm with problems, questions or concerns, after 5pm call the Hospital at [phone] and ask to speak to the Executive Account Manager electronic engineering technician and the paring machine operator will contactthat person for you. [...] PM EST Office [place] [address] Paula Harris PA [facility] [place] [address] 01/26/2025 9:50 AM EDT Appointment Mammography/[place] [address] Joan Deutsch, [facility] [place] [place] [address] 01/26/2025 10:50 AM EDT Office [place] [address] Joan Deutsch APRN [facility] [place] [address] documented as of this encounter Procedures Procedure Name Priority Date/Time Associated Diagnosis Comments COLONOSCOPY Routine 02/29/2012 12:01 PM EDT COLONOSCOPY, DIAGNOSTIC (WRVU 3.26) 02/29/2012 11:39 AM EDT 5YR RESCOPE documented in this encounter Results * COLONOSCOPY (02/29/2012 12:01 PM EDT) [facility] Signature COLONOSCOPY [facility] Endoscopy Patient Name: Diaomnd Gaming ? Procedure Date: 02/29/2012 12:01 PM ? Date of : 1945 ? Age: 66 ? Order #: [id number] ? Procedure: ? Colonoscopy Indications: ? Follow-up for history of adenomatous ? polyps in the colon Providers: ? Gallito Lincoln MD, Anu Schafer, ? Margret MAURO, Soft Sugar Operator Head Referring : ?Mariluz Watts MD Medicines: ? [...] RN) documented in this encounter Care Teams Retail Visual Merchandiser Relationship Specialty Start Date End Date Mariluz Watts MD [address] [place] [address] PCP - General 08/22/10 documented as of this encounter
--- OUTSIDE RECORDS SUMMARY | 2024-05-21 06:13 | XMS_ITS | Encounter Summary ---
Author Organization [facility] [place] [address] Care Team Providers Care Transmission Systems Operator Name Role Phone Mariluz Watts MD Primary Care Provider [phone] Reason for Visit * Reason Comments Rosacea Encounter Details Date Type Department Care Team (Late st Contact Info) Description 02/21/2012 3:30 PM EDT Follow-[place] [address] Chayo Willingham MD [facility] [place] [address] Rosacea (Primary Dx); Sebaceous hyperplasia Discharge Disposition: [...] supervision with direct supervision immediately available. (definition: [facility] GME Policy Statement on Graduate Medical Education, [...] by Chayo Willingham MD Resident in Dermatology [facility] [place] Patient discussed with staff tourist information officer: Tulio Fernandez MD Section of Dermatology [facility] [place] documented in this encounter Plan of Treatment Upcoming Encounters Date Type Department Care Team (Late st Contact Info) Description 11/16/2024 1:00 PM EST Office [place] [address] Paula Harris PA [facility] [place] [address] 01/26/2025 9:50 AM EDT Appointment Mammography/DXA at [place] [phone] Joan Deutsch APRN [facility] [place] [address] 01/26/2025 10:50 AM EDT Office Visit [place] [address] Joan Deutsch APRN [facility] [place] [address] documented as of this encounter Visit Diagnoses Diagnosis Rosacea- Primary Sebaceous hyperplasia Other specified disease of sebaceous glands documented in this encounter Care Teams Transmission Systems Operator Relationship Specialty Start Date End Date Mariluz Watts MD [address] [place] [address] PCP - General 08/22/10 documented as of this encounter
--- OUTSIDE RECORDS SUMMARY | 2024-05-21 06:13 | XMS_ITS | Encounter Summary ---
Author Organization [facility] [place] [address] Care Team Providers Care Career Services Assistant Name Role Phone Mariluz Watts MD Primary Care Provider [phone] Encounter Details Date Type Department Care Team (Latest Contact Info) Description 07/08/2012 1:43 PM EDT - 07/08/2012 11:59 PM EDT Hospital Encounter XRay at [address] [place] [address] CLINIC, Kian Stone MD [address] [facility] [place] [address] DJD (degenerative joint disease) of hip Discharge [...] PM EST Office Visit General Surgery at [facility] [place] [address] Paula Harris, PA [facility] DR [place] [address] 01/26/2025 9:50 AM EDT Appointment Mammography/[place] [address] Joan Deutsch, [facility] [place] [address] 01/26/2025 10:50 AM EDT Office [place] [address] Joan Deutsch, [facility] [place] [address] documented as of this encounter Procedures Procedure [...] thigh documented in this encounter Care Teams Career Services Assistant Relationship Specialty Start Date End Date Mariluz Watts MD [address] [facility] [place] [address] PCP - General 08/22/10 documented as of this encounter
--- OUTSIDE RECORDS SUMMARY | 2024-05-21 06:13 | XMS_ITS | Encounter Summary ---
Author Organization [facility] [address] Care Team Providers Care Saxophone Teacher Name Role Phone Mariluz Watts MD Primary Care Provider [phone] Reason for Visit * Reason Onset Date Comments Medication Refill 04/04/2012 Encounter Details Date Type Department Care Team (Late st Contact Info) Description 04/04/2012 [place] [address] Chayo Willingham MD [facility] [place] [address] Rosacea Social History Tobacco Use Types Packs/Day [...] weekend. You can contact the pt at [phone]. She would like the RX sent to the [facility]. Thanks Debbi documented in this encounter Plan of Treatment Upcoming Encounters Date Type Department Care Team (Late st Contact Info) Description 11/16/2024 1:00 PM EST Office Visit [place] [address] Paula Harris PA [facility] [place] [address] 01/26/2025 9:50 AM EDT Appointment Mammography/DXA at [place] [phone] Joan Deutsch APRN [facility] [place] [address] 01/26/2025 10:50 AM EDT Office Visit General Surgery at [place] [phone] Joan Deutsch APRN [facility] [place] [address] documented as of this encounter Visit Diagnoses Diagnosis Rosacea documented in this encounter Care Teams Saxophone Teacher Relationship Specialty Start Date End Date Mariluz Watts MD [address] [place] [address] [address] [place] [address] PCP - General 08/22/10 documented as of this encounter
--- OUTSIDE RECORDS SUMMARY | 2024-05-21 06:13 | XMS_ITS | Encounter Summary ---
Author Organization [place] [address] Care Team Providers Care Senior Report Developer Name Role Phone Mariluz Watts MD Primary Care Provider [phone] Reason for Visit * Reason Comments Left Hip Pain Aftercare Of Tjr SP R ARSLAN DOS 02/2005 Left Knee Pain Encounter Details Date Type Department Care Team (Late st Contact Info) Description 01/25/2012 2:35 PM EDT [place] [address] Nick Ruiz MD [address] [place] [address] Hip pain (Primary Dx); S/P hip replacement [...] Procedure Performed: Right total hip arthroplasty, cementless, [id number] Components Used: Nicole Trident 52 shell outer [...] quadriceps tendon or in the joint bursa. Bexley view shows moderate lateral facet narrowing, right greater than left. Schuss views demonstrate [id number]-tj-[id number] left medial compartmental narrowing and mild osteophytosis. [...] PM EST Office [place] [phone] Paula Harris PA [facility] [place] [address] 01/26/2025 9:50 AM EDT Appointment Mammography/[place] [address]1000 Joan Deutsch APRN [facility] [place] [address] 01/26/2025 10:50 AM EDT Office [place] [phone] Joan Deutsch APRN [facility] [place] [address] documented as of this encounter Results * XR Fluoro injection FL drain large JT (01/31/2012 2:13 PM EDT) Anatomical Region Laterality Modality N/A Radiographic Crystal ging 01/31/2012 2:13 PM EDT Narrative 02/04/2012 2:11 PM EDT ?VIR ?? PROCEDURE NOTE ?Name: ?? Diamond Gaming ? Date ?? of : 1945 ?Procedure: ?? LEFT HIP INJECTION UNDER FLUOROSCOPY ? ACC#: ?? [id number] ?Indication ?? for Procedure: Left hip pain, [...] fluoroscopy. ?Resident/Fellow: ?? Dr. Devaughn Mcdonough (Pager #[phone]) ? Attending: ?? Dr. Marly Torres ?ATTENDING [...] 1945 Procedure: LEFT HIP INJECTION UNDERFLUOROSCOPY ACC#: [id number] Indication for Procedure: Left hip pain, degenerative [...] jointinjection under fluoroscopy. Resident/Fellow: Dr. Devaughn Mcdonough (Pager#[phone]) Attending: Dr. Marly Torres ATTENDING ATTESTATION I, [...] thigh documented in this encounter Care Teams Senior Report Developer Relationship Specialty Start Date End Date Mariluz Watts MD [address] [place] [address] PCP - General 08/22/10 documented as of this encounter
--- OUTSIDE RECORDS SUMMARY | 2024-05-21 06:13 | XMS_ITS | Encounter Summary ---
[place] [address] Care Team Providers Care Trench Pipe Layer Name Role Phone Mariluz Watts MD Primary Care Provider [phone] Encounter Details Date Type Department Care Team (Late st Contact Info) Description 11/05/2011 Orders [place] [address]-1000 Karine Vaca, RN Malignant neoplasm of breast [...] PM EST Office [place] [phone] Paula Harris, PA [facility] [address] [place] [address] 01/26/2025 9:50 AM EDT Appointment Mammography/[place] [phone] Joan Deutsch APRN [facility] [place] [address] 01/26/2025 10:50 AM EDT Office [place] [phone] Joan Deutsch APRN [facility] [place] [address] documented as of this encounter Visit Diagnoses Diagnosis Malignant neoplasm of breast (female), unspecified site- Primary documented in this encounter Care Teams Trench Pipe Layer Relationship Specialty Start Date End Date Mariluz Watts MD [address] [place] [address] PCP - General 08/22/10 documented as of this encounter
--- OUTSIDE RECORDS SUMMARY | 2024-05-21 06:13 | XMS_ITS | Encounter Summary ---
Author Organization [facility] [place] [address] Care Team Providers Care Perl Developer Name Role Phone Mariluz Watts MD Primary Care Provider [phone] Reason for Referral * Physical Therapy (Routine) - Complete - Patient Will Schedule External Appt Specialty Diagnoses / Procedures Referred By John lyons Referred To Contact Physical Therapy Diagnoses DJD (degenerative joint disease) of hip Ralph Ambrocio PA [facility] [place] [address] Referral ID Status Reason Start Date Expiration Date Visits Requested Visits Authorized [id number] Complete - Patient Will Schedule External Appt Evaluate and Treat 02/01/2012 07/30/2012 12 12 Encounter Details Date Type Department Care Team (Late st Contact Info) Description 02/01/2012 Orders [place] [address] Ralph Ambrocio PA [facility] [place] [address] DJD (degenerative joint disease) of [...] PM EST Office [place] [address] Paula Harris PA [facility] [place] [address] 01/26/2025 9:50 AM EDT Appointment Mammography/DXA at [place] [phone] Joan Deutsch APRN [facility] [place] [address] 01/26/2025 10:50 AM EDT Office Visit General Surgery at [place] [phone] Joan Deutsch APRN [facility] [place] [place] [address] Scheduled Referrals Name Type Priority Associated Diagnoses Orde r Schedule REFERRAL TO PHYSICAL THERAPY Outpatient Referral Routine DJD (degenerative joint disease) of hip Ordered: 02/01/2012 documented as of this encounter Visit Diagnoses Diagnosis DJD (degenerative joint disease) of hip- Primary Osteoarthrosis, unspecified whether generalized or localized, pelvic region and thigh documented in this encounter Care Teams Perl Developer Relationship Specialty Start Date End Date Mariluz Watts MD [address] [place] [address] [address] [place] [address] PCP - General 08/22/10 documented as of this encounter
--- OUTSIDE RECORDS SUMMARY | 2024-05-21 06:13 | XMS_ITS | Encounter Summary ---
Author Organization [facility] [place] [address] Care Team Providers Care Corporate Licensed Broker Name Role Phone Mariluz Watts MD Primary Care Provider [phone] Encounter Details Date Type Department Care Team (Latest Contact Info) Description 02/29/2012 11:00 AM EDT - 02/29/2012 2:14 PM EDT Hospital Encounter [place] [address] Gallito Lincoln MD [facility] [place] [address] Discharge Disposition: Home Social History Tobacco Use [...] - 02/29/2012 1:01 PM EDT Please call [phone], before 5pm with problems, questions or concerns, after 5pm call the Hospital at [phone] and ask to speak to the Concrete Rubber construction management assistant and the louver mortiser operator will contactthat person for you. Discharge [...] * COLONOSCOPY: WHAT TO EXPECT AT HOME (SLOVENIAN) documented in this encounter Medications at Time [...] PM EST Office Visit [place] [address] Paula Harris PA [facility] [place] [address] 01/26/2025 9:50 AM EDT Appointment Mammography/[place] [address] Joan Deutsch, [facility] GENERAL SURGERY [place], [place] [phone] 01/26/2025 10:50 AM EDT Office Visit [place] [address] Joan Deutsch, [facility] GENERAL SURGERY [place], [place] [phone] documented as of this encounter Procedures Procedure Name Priority Date/Time Associated Diagnosis Comments COLONOSCOPY Routine 02/29/2012 12:01 PM EDT COLONOSCOPY, DIAGNOSTIC (WRVU 3.26) 02/29/2012 11:39 AM EDT 5YR RESCOPE documented in this encounter Results * COLONOSCOPY (02/29/2012 12:01 PM EDT) [facility] Signature COLONOSCOPY [facility] Endoscopy Patient Name: Diamond Gaming ? Procedure Date: 02/29/2012 12:01 PM ? Date of : 1945 ? Age: 66 ? Order #: [id number] ? Procedure: ? Colonoscopy Indications: ? Follow-up for history of adenomatous ? polyps in the colon Providers: ? Gallito Lincoln MD, Anu Schafer, ? [place], Margret Shen, Closing Machine Operator Referring : ?Mariluz Watts MD Medicines: ? [...] RN) documented in this encounter Care Teams Corporate Licensed Broker Relationship Specialty Start Date End Date Mariluz Watts MD [address] [place] [address] PCP - General 08/22/10 documented as of this encounter
--- OUTSIDE RECORDS SUMMARY | 2024-05-21 06:13 | XMS_ITS | Encounter Summary ---
Author Organization [facility] [place] [address] Care Team Providers Care Jewelry Sales Representative Name Role Phone Mariluz Watts MD Primary Care Provider [phone] Encounter Details Date Type Department Care Team (Latest Contact Info) Description 05/02/2012 12:56 PM EDT - 05/02/2012 11:59 PM EDT Hospital [place] [address] CLINIC, DR KATARINA Merlos, Abrahan Chavarria MD [facility] HEMATOLOGY/[place] [address] Discharge Disposition: Home Social History Tobacco Use [...] PM EST Office Visit General Surgery at [place] [phone] Paula Harris PA [facility] [place] [address] 01/26/2025 9:50 AM EDT Appointment Mammography[place] [phone] Joan Deutsch APRN [facility] [place] [address] 01/26/2025 10:50 AM EDT Office [place] [phone] Joan Deutsch APRN [facility] [place] [address] documented as of this encounter Visit Diagnoses Not on filedocumented in this encounter Care Teams Jewelry Sales Representative Relationship Specialty Start Date End Date Mariluz Watts MD [address] [place] [address] PCP - General 08/22/10 documented as of this encounter
--- OUTSIDE RECORDS SUMMARY | 2024-05-21 06:13 | XMS_ITS | Encounter Summary ---
[place] [address] Care Team Providers Care Senior Director Of Global Commercial Technology Solutions Name Role Phone Mariluz Watts MD Primary Care Provider [phone] Encounter Details Date Type Department Care Team (Latest Contact Info) Description 07/08/2012 12:34 PM EDT - 07/08/2012 11:59 PM EDT [place] [address] Nick Ervin MD [address] [place] [address] DJD (degenerative joint disease) of hip Discharge [...] PM EST Office [place] [address] Paula Harris PA [facility] [place] [address] 01/26/2025 9:50 AM EDT Appointment Mammography/[place] [phone] Joan Deutsch, [facility] [place] [place] [address] 01/26/2025 10:50 AM EDT Office Visit [place] [address] Joan Deutsch, [facility] [place] [address] documented as of this encounter Procedures Procedure [...] GAMING ?Ordered By: NICK ERVIN ? MR#: [id number] ?LOC: ??4V ? /Sex: ??1945 (66 years), [...] - GENER AL ORDERABLES Performing Organization Address City/[facility]/ZIP Co de Phone Number CERNER MILLENNIUM [...] Urine Dipstick Clear Clear CERNER MILLENNIUM Specific [place] Urine Automated 1.017 1.002 - 1.030 CERNER [...] Screen Interp Negative VALERIE MAYERIUM Expires at [id number] on: [id number] VALERIE MAYERIUM Blood specimen (specimen) 07/08/2012 12:50 PM EDT 07/08/2012 1:23 PM EDT Narrative Resulting Agency Comment Spec In Lab Nick Ervin MD BLOOD BANK LAB ORDER [place] [facility] MANISHAAUROR[facility]AST [facility]PITALKRISHNA * ABO/RH TYPING (07/08/2012 12:50 PM EDT) Pathologist [facility] ABORH Type O Neg [facility] Blood specimen (specimen) 07/08/2012 12:50 PM EDT 07/08/2012 1:23 PM EDT Narrative Resulting Agency Comment Spec In Lab Nick Ervin MD BLOOD BANK LAB ORDER SALVATORE [facility] DYERAUROR[facility]AST [facility]OSPITALKRISHNA * Hemoglobin A1c (07/08/2012 12:50 PM EDT) [facility] Hemoglobin A1c 5.5 4.3 - 6.1 % [facility] Estimated Average Glucose 111 mg/dL [facility] Comment: eAG equivalents for HbA1c percentages: HbA1c(%) [...] into estimated average glucose values. ??Diabetes Care 2008:31(8):7637-2976. Blood specimen (specimen) 07/08/2012 12:50 PM EDT 07/08/2012 1:21 PM EDT Narrative Resulting Agency Comment Spec In Lab Nick Ervin MD CHEMISTRY ORDERABLES Performing Organization Address [facility] de Phone Number [facility] * Protein, total (07/08/2012 12:50 PM EDT) Protein, Total 6.9 6.4 - 8.3 gm/dL [facility] Blood specimen (specimen) 07/08/2012 12:50 PM EDT 07/08/2012 1:21 PM EDT Narrative Resulting Agency Comment Spec In Lab Nick Ervin MD CHEMISTRY ORDERABLES Performing Organization Address [facility] de Phone Number [facility] BiosciencesAURORA EAST HOSPITALIUM * Albumin Level (07/08/2012 12:50 PM EDT) Albumin 4.7 3.2 - 5.2 gm/dL [facility] Blood specimen (specimen) 07/08/2012 12:50 PM EDT 07/08/2012 1:21 PM EDT Narrative Resulting Agency Comment Spec In Lab Nick Ervin MD CHEMISTRY ORDERABLES Performing Organization Address [facility] de Phone Number [facility] * High Sensitivity CRP (07/08/2012 12:50 PM EDT) C-Reactive Protein High Sensitivity 0.9 mg/L [facility] Comment: Interpretations: 1) For cardiac risk [...] Ervin MD CHEMISTRY ORDERABLES Performing Organization Address [facility] Phone Number [facility] * Sedimentation rate (07/08/2012 12:50 PM EDT) Sedimentation Rate Automated 6 0 - 20 mm/hr [facility] Blood specimen (specimen) 07/08/2012 12:50 PM EDT 07/08/2012 1:21 PM EDT Narrative Resulting Agency Comment Spec In Lab Authorizing Provider Result Froy Ervin MD HEMATOLOGY ORDERABLE S Performing Organization Address [facility] de Phone Number [facility] [email or web address] * APTT (07/08/2012 12:50 PM EDT) Partial Thromboplastin Time 30 25 - 35 sec [facility] MILLENNIUM Comment: Recommended therapeutic PTT range for full dose unfractionated heparin is 80-114 seconds. Blood specimen (specimen) 07/08/2012 12:50 PM EDT 07/08/2012 1:21 PM EDT Narrative Resulting Agency Comment Spec In Lab Authorizing Provider Result Froy Ervin MD HEMATOLOGY ORDERABLE S Performing Organization Address [facility] de Phone Number [facility]ITAL[facility]IG[facility]OR[facility] * Prothrombin Time (07/08/2012 12:50 PM EDT) Prothrombin Time 12.6 11.9 - 14.7 sec [facility] MILLENNIUM Comment: [facility] Transfusion Committee Guidelines: INR less than 2.0, PTT less than OR equal to 43.5 seconds, or Fibrinogen greater than or equal to 100 mg/dl indicate adequate procoagulant activity for hemostasis in patients without underlying bleeding disorders. International Normalization Ratio 0.9 0.9 - 1.1 [facility] Blood specimen (specimen) 07/08/2012 12:50 PM EDT 07/08/2012 1:21 PM EDT Narrative Resulting Agency Comment Spec In Lab Authorizing Provider Result Froy Ervin MD HEMATOLOGY ORDERABLE S Performing Organization Address [facility] Phone Number [facility] * Basic Metabolic Panel (non-fasting) (07/08/2012 12:50 PM EDT) Glucose 93 60 - 199 mg/dL [facility] MILLAURORA EAST HOSPITALIUM Comment:Diabetes: >=200 mg/d L plus symptoms Blood Urea Nitrogen 14 8 - 18 mg/dL [facility] MILLENNIUM Creatinine 0.74 0.70 - 1.20 mg/dL [facility] MILLENNIUM Comment: Please note that the pediatric reference intervals supplied above were not validated at [facility]. Results from pediatric patients should be interpreted in conjunction to the patient's age, height and muscle mass. Sodium 140 135 - 145 mmol/L [facility] MILLENNIUM Potassium 4.2 3.5 - 5.0 mmol/L [facility] MILLENNIUM Comment: Please note: ??Patients with WBC [...] documented in this encounter Care Teams Senior Director Of [employer] Technology Solutions Relationship Specialty Start Date End Date Mariluz Watts MD [address] [place] [address] [address] [place] [address] PCP - General 08/22/10 documented as of this encounter
--- OUTSIDE RECORDS SUMMARY | 2024-05-21 06:13 | XMS_ITS | Encounter Summary ---
[place] [address] Care Team Providers Care Parachute Folder Name Role Phone Mariluz Watts MD Primary Care Provider [phone] Encounter Details Date Type Department Care Team (Latest Contact Info) Description 07/22/2012 1:26 PM EDT - 07/25/2012 9:16 PM EDT Hospital Encounter [address] [place] [address] Nick Ervin MD [address] [place] [address] Shaunna Discharge Disposition: Home Social History Tobacco [...] a bowel movement. You can take an spjn-wyn-hwawvyd medication, miralax if needed to combatconstipation. 2. [...] for L ARSLAN anterior Hueter approach w/ Burlington table. Pt has a cerclage wire for intra-op calcar fracture so limited to 50% WB L LE. 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 She used the leg tele tech to assist L LE back into bed [...] POD#3 L ARSLAN anterior Heuter approach w/ Burlington table. Pt has a cerclage wire for [...] x Pt will move supine<>sit w/ leg tele tech (I). x Pt will move sit<>stand (I) [...] minutes functional activity HOLLI LLANOS PT Pager: [phone] * Hero Dsouza - 07/25/2012 2:13 PM EDT [employer] Encounter Note Patient Name: Diamond Gaming : [id number] MR#: [id number] Admit Date: 07/22/2012 1:26 PM Hospital Day 3 days Narrative:Visited to introduce and assess acceptance of [employer] services. Assessment:Patient coping positively with stresses of illness/hospitalization at this time. Pt was in the chair and in good spirits. Pt is living by herself an hs children and grand children. 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 Intervention and Outcome:[employer] services accepted. Conversation to build trusting relationship.Provided [...] re: transfer. Supervision, extra time, and leg tele tech needed for sit to supine transfer. Supervision [...] minutes; there ex functional x 2 Pager: [phone] ELLA MOYER Occupational Therapy Rehabilitation Department * [...] for L ARSLAN anterior Hueter approach w/ Burlington table. Pt has a cerclage wire for intra-op calcar fracture so limited to 50% WB L LE. 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 ?? She used leg tele tech and almost had L LE up and [...] POD#2 L ARSLAN anterior Heuter approach w/ Burlington table. Pt has a cerclage wire for [...] x Pt will move supine<>sit w/ leg tele tech (I). x Pt will move sit<>stand (I) [...] minutes functional activity HOLLI LLANOS PT Pager: [phone] * Jamee Cabrera OTA - 07/24/2012 4:27 [...] HOB elevated, extra time, and using leg tele tech to assist LLE. Supervision sit to stand. [...] minutes; there ex functional x 2 Pager: [phone] ELLA MOYER Occupational Therapy Rehabilitation Department * Joan Carballo RN - 07/23/2012 10:30 PM EDT Assumed care of patient from [phone]. AOX4. HRR. VSS. Pt denies SOB, chest [...] RN, and lives with her grandchild and Czech pratt in [facility]. Pt had R ARSLAN In 03/04. Pt denies the need for in-pt rehab and feels she can manage at home with VNA. Pt requests [facility] for services. Pt will be on RIvaroxaban [...] Procedure Performed: Right total hip arthroplasty, cementless, paackhd-pq-xglawpy Components Used: Nina Trident 52 shell outer [...] a bowel movement. You can take an xcws-adv-ewgmcrw medication, miralax if needed to combatconstipation. 2. [...] PM Nick Ervin MD [facility] [phone] None Joint Appt Health Question Three C Orth[facility] [phone] None Future Orders Please Complete By Expires Referral to Home Health [XII5644 CPT(R)] Process Instructions: Scheduling Instructions: Comments: [facility] PHONE: [phone] FAX: [phone] DOCUMENTATION FOR VNA SERVICES (INCLUDING THOSE PATIENTS WITH MEDICARE COVERAGE REQUIRING HOME VNA SERVICES AND/OR HOSPICE SERVICES) Diamond Mauri Gaming Discharge to own home: [address] [place] [phone] (home) No relevant phone numbers on file. In discussion with the attending physician, it is certified that this patient is under their care and that they, or a nurse practitioner, clinical nurse specialist or physician's material assistant who is working directly with them, had [...] effort and are for medical reasons or mandaeism services of infrequently or of short duration when for other reasons) All VNA agencies which cover the area of patient's residence have been reviewed, either verbally mathew writing, and patient/family have chosen the home health care agency as noted for home services. Questions: Responses: Agency name and contact information [facility] Patient location post discharge home What services are requested Start date Responsible MD post discharge contact info Provider Contact Information: Primary Care Provider: MARILUZ WATTS MD [phone] Hospital Attending: Nick Ervin MD Department of Orthopaedic Surgery Joints: [phone] Signed: MORENA AWAD 07/25/2012 * Plan of [...] for L ARSLAN anterior Hueter approach w/ Burlington table. Pt has a cerclage wire for [...] Procedure Date: 08/18/2006 ??? Created by interface [id number] Procedure Date: 01/27/2007 ??? Created by interface [...] >4.0CM, TRUNK performed by TIRSO CHAUDHARI at [facility] MAIN OR ??? Colonoscopy, diagnostic 02/29/2012 COLONOSCOPY, DIAGNOSTIC performed by RAJAT KUO at [facility] ENDOSCOPY ??? 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 Gait pattern: Xohk-nm-dnnr and cautious about not putting too much [...] POD#1 L ARSLAN anterior Heuter approach w/ Burlington table. Pt. tolerated today???s session fairly well [...] x Pt will move supine<>sit w/ leg tele tech (I). x Pt will move sit<>stand (I) [...] treatment: 0 minutes HOLLI LLANOS, PT Pager: [phone] * Initial Assessments - Aminta Garvin, OT [...] dog. 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 Walk in [...] minutes Total timed interventions: 0 minutes Pager: [phone] AMINTA GARVIN OT 07/23/2012 Occupational Therapy Rehabilitation [...] Date: Jul 2211-11 Surgeon: Nick Ervin MD Emergency Communications Dispatcher: Pb Michelle MD Anesthesia: GET Pre-operative diagnosis: Left hip osteoarthritis Body mass index is 35.35 kg/(m^2). Post-operative diagnosis: Same Surgical Procedure Performed: Injection left hip with 10 cc marcaine 0.25% with epi, into skin and subcutaneous tissues (CPT [id number]) left total hip arthroplasty, anterior Hueter approach with Burlington table (CPT code 79787) Left hip intraoperative radiologic examination (CPT code 49036) Amicar infusion (5 g IV load, then 1g/hr x 3 hrs) Components Used: [place] Accolade stem, size 4, 127 degrees Trident [...] wasperformed. Patient was positioned supine on the Burlington table, both feet and ankles were padded [...] liner was placed and impacted according to sap security architect's instructions. Any impinging osteophytes were removed. The [...] and laterally. At the same time, the material assistant leaned against the thigh to optimize femoral [...] Implant Name Type Inv. Item Serial No. Weeder Lot No. LRB No. Used Action SHELL,ACETABULAR,TRIDENT,PSL,S ([id number]) (AUTOREQ) - [id number] IMPLANTS SHELL,ACETABULAR,TRIDENT,PSL,S ([id number]) (AUTOREQ) [email or web address] - [id number] Left 1 Implanted INSERT,TRIDENT,ALUMINA,0,DEG,3 ([id number]) (AUTOREQ) - [id number] IMPLANTS INSERT,TRIDENT,ALUMINA,0,DEG,3 ([id number]) (AUTOREQ) [email or web address] - [id number] Left 1 Implanted STEM,FEM,ACCOLADE,127,DEG,NECK ([id number]) (AUTOREQ) - [id number] IMPLANTS STEM,FEM,ACCOLADE,127,DEG,NECK ([id number]) (AUTOREQ) [email or web address] - [id number] Left 1 Implanted CABLE,SS,CRMP,1.5W852YL,STR ([id number]) - [id number] IMPLANTS CABLE,SS,CRMP,1.8H605SK,STR ([id number]) [facility] - [id number] Left 1 Implanted HEAD,FEM,ALUMINA,V40,-4X32MM ([id number]) (AUTOREQ) - [id number] IMPLANTS HEAD,FEM,ALUMINA,V40,-4X32MM ([id number]) (AUTOREQ) [email or web address] - [id number] Left 1 Implanted documented in this encounter Plan of Treatment Upcoming Encounters Date Type Department Care Team (Late st Contact Info) Description 11/16/2024 1:00 PM EST Office Visit General Surgery at [place] [phone] Paula Harris PA [facility] [place] [place] [address] 01/26/2025 9:50 AM EDT Appointment Mammography/DXA at [place] [phone] Joan Deutsch APRN [facility] [place] [address] 01/26/2025 10:50 AM EDT Office [place] [phone] Joan Deutsch QUALITY ASSOCIATE [facility] [place] [address] Pending Results Name Type Priority Associated Diagnoses [...] intervals supplied above were not validated at [facility]. Results from pediatric patients should [...] Lab Nick Ervin MD CHEMISTRY ORDERABLES [facility] * (ABNORMAL) CBC (with Diff) (07/25/2012 4:29 [...] Metabolic Panel (non-fasting) (07/24/2012 3:53 AM EDT) [facility] Glucose 127 60 - 199 mg/dL CERNER MILLENNIUM Comment:Diabetes: >=200 mg/d L plus symptoms Blood Urea Nitrogen 16 8 - 18 mg/dL CERNER MILLENNIUM Creatinine 0.58(L) 0.70 - 1.20 mg/dL CERNER MILLENNIUM Comment: Please note that the pediatric reference intervals supplied above were not validated at [facility]. Results from pediatric patients should [...] Lab Nick Ervin MD CHEMISTRY ORDERABLES [facility] * (ABNORMAL) CBC (with Diff) (07/24/2012 3:53 [...] EDT Nick Ervin MD HEMATOLOGY ORDERABLE [facility] * (ABNORMAL) Basic Metabolic Panel (non-fasting) (07/23/2012 4:36 AM EDT) [facility] Signature Glucose 148 60 - 199 mg/dL CERNER MILLENNIUM Comment:Diabetes: >=200 mg/d L plus symptoms Blood Urea Nitrogen 14 8 - 18 mg/dL CERNER MILLENNIUM Creatinine 0.51(L) 0.70 - 1.20 mg/dL CERNER MILLENNIUM Comment: Please note that the pediatric reference intervals supplied above were not validated at [facility] Results from pediatric patients should [...] Ervin MD CHEMISTRY ORDERABLES Performing Organization Address [facility] Co de Phone Number CERRIGO MAYERIUM * [...] MD HEMATOLOGY ORDERABLE S Performing Organization Address [facility]/ZIP Co de Phone Number VALERIE MAYERIUM * [...] 6:21 PM EDT) Surgical Pathology Report ? [facility] ? Provider: ?? NICK ERVIN ? Pt. Name: ?? DIAMOND GAMING ? Acc #: ?[id number] ?Pt. ? Col Date: ?? 07/22/2012 ?/Sex: [...] MD PATHOLOGY/CYTOLOGY O JOSELUIS Performing Organization Address [facility] de Phone Number VALERIE MAYERIUM * Specimen to Pathology (surgical or derm) (07/22/2012 4:18 PM EDT) AP Specimen 07/22/2012 4:18 PM EDT 07/22/2012 4:18 PM EDT Narrative CERNER MILLENNIUM - 07/22/2012 4:18 PM EDT Specimen requisition ordered. ??Separate Pathology report to follow Nick Ervin MD PATHOLOGY/CYTOLOGY O JOSELUIS Performing Organization Address [facility] de Phone Number VALERIE MAYERIUM documented in [...] EDT Given 07/23/2012 9:00 AM EDT multivitamin Jrgq-We-CM-Min (THERAPEUTIC-M) 27-0.4 mg tablet 1 tablet 1 [...] (Given - Provider: Marily [place] RN) multivitamin Vhoc-Ib-RX-Min (THERAPEUTIC-M) 27-0.4 mg tablet 1 tablet (CANCELED) [...] [place], [place])[address] (Due - Provider: Morgan Smith [facility]) sodium phosphates (FLEET) 19-7 gram/118 mL rectal [...] [place]) 2100 (Due - Provider: Morgan Smith [facility]) Continuous Medication Order 07/23/2012 07/24/2012 07/25/2012 lactated [...] Routine documented in this encounter Care Teams Parachute Folder Relationship Specialty Start Date End Date Mariluz Watts MD [address] [place] [address] PCP - General 08/22/10 documented as of this encounter
--- OUTSIDE RECORDS SUMMARY | 2024-05-21 06:13 | XMS_ITS | Encounter Summary ---
[place] [address] Care Team Providers Care Makeup Artistry Instructor Name Role Phone Mariluz Watts MD Primary Care Provider [phone] Reason for Visit * Reason Onset Date Comments Other 04/01/2012 Disability Paper work/[facility] Encounter Details Date Type Department Care Team (Late st Contact Info) Description 04/01/2012 Telephone Hematology [place] [address] Gemini Lawrence RN [facility] Social History Tobacco Use Types Packs/Day [...] RN - 04/01/2012 8:59 AM EDT [facility] requested paperwork to evaluate a claim for Long-term Disability All records from 11/02/2011 copied. [employer] Disclosure Release form signed by patient. No genetic information included. Medical records mailed to: [employer] [place] Disability Claim Office [facility] [address] [address] [place] [address] Copy filed under Disabilty. documented in this encounter Plan of Treatment Upcoming Encounters Date Type Department Care Team (Late st Contact Info) Description 11/16/2024 1:00 PM EST Office Visit General [place] [phone] Paula Harris PA [facility] [address] 01/26/2025 9:50 AM EDT Appointment Mammography/[place] [address] Joan Deutsch RESPIRATORY MANAGER [facility] [place] [address] 01/26/2025 10:50 AM EDT Office Visit General [place] [address] Joan Deutsch RESPIRATORY MANAGER [facility] [place] [place] [address] documented as of this encounter Visit Diagnoses Not on filedocumented in this encounter Care Teams Makeup Artistry Instructor Relationship Specialty Start Date End Date Mariluz Watts MD [address] [place] [address] PCP - General 08/22/10 documented as of this encounter
--- OUTSIDE RECORDS SUMMARY | 2024-05-21 06:13 | XMS_ITS | Encounter Summary ---
Author Organization [facility] [place] [address] Care Team Providers Care Seamer Panty Hose Name Role Phone Mariluz Watts MD Primary Care Provider [phone] Encounter Details Date Type Department Care Team (Latest Contact Info) Description 01/25/2012 2:17 PM EDT - 01/25/2012 11:59 PM EDT Hospital Encounter XRay at [address] [place] [address] S/P hip replacement Social History Tobacco Use [...] PM EST Office Visit General Surgery at [place] [phone] Paula Harris PA [facility] [place] [address] 01/26/2025 9:50 AM EDT Appointment Mammography/[place] [phone] Joan Deutsch APRN [facility] [place] [address] 01/26/2025 10:50 AM EDT Office [place] [address] Joan Deutsch TRANSIT WORKER [facility] [place] [address] documented as of this encounter Procedures Procedure [...] alignment in the weight bearing position. Mechanical [place]: ??The patient is status post right total [...] quadriceps tendon or in the joint bursa. Mcloud view shows moderate lateral facet narrowing, right greater than left. Schuss views demonstrate dtxpfptl-sl-ltkyit left medial compartmental narrowing and mild osteophytosis. [...] extremity alignment inthe weight bearing position. Mechanical [place]: The patient is status post right total [...] the quadriceps tendon or in the jointbursa. Mcloud view shows moderate lateral facet narrowing, right greater thanleft. Schuss views demonstrate vufdmpoy-aj-kyadyr left medial compartmentalnarrowing and mild osteophytosis. PELVIS [...] means documented in this encounter Care Teams Seamer Panty Hose Relationship Specialty Start Date End Date Mariluz Watts MD [address] [place] [address] PCP - General 08/22/10 documented as of this encounter
--- OUTSIDE RECORDS SUMMARY | 2024-05-21 06:13 | XMS_ITS | Encounter Summary ---
[place] [address] Care Team Providers Care Electrical Logger Name Role Phone Mariluz Watts MD Primary Care Provider [phone] Reason for Referral * Physical Therapy (Routine) - Complete - Patient Will Schedule External Appt Specialty Diagnoses / Procedures Referred By John lyons Referred To Contact Physical Therapy Diagnoses DJD (degenerative joint disease) of hip Kian Ervin MD [address] [place] [address] Referral ID Status Reason Start Date Expiration Date Visits Requested Visits Authorized [id number] Complete - Patient Will Schedule External Appt Evaluate and Treat 02/01/2012 07/30/2012 12 12 Encounter Details Date Type Department Care Team (Late st Contact Info) Description 01/24/2012 Orders Only [place] [address] Kian Ervin MD [address] [place] [address] S/P hip replacement; Left knee [...] PM EST Office [place] [address] Paula Harris PA [facility] [place] [address] 01/26/2025 9:50 AM EDT Appointment Mammography/DXA at [place] [phone] Joan Deutsch BUSINESS ANALYST PROJECT MANAGER [facility] [place] [address] 01/26/2025 10:50 AM EDT Office Visit General Surgery at [place] [phone] Joan Deutsch BUSINESS ANALYST PROJECT MANAGER [facility] [place] [address] Scheduled Referrals Name Type Priority Associated Diagnoses [...] alignment in the weight bearing position. Mechanical [place]: ??The patient is status post right total [...] quadriceps tendon or in the joint bursa. [place] view shows moderate lateral facet narrowing, right greater than left. Schuss views demonstrate brfzajnm-lm-kjkdbg left medial compartmental narrowing and mild osteophytosis. [...] extremity alignment inthe weight bearing position. Mechanical [place]: The patient is status post right total [...] the quadriceps tendon or in the jointbursa. [place] view shows moderate lateral facet narrowing, right greater thanleft. Schuss views demonstrate blbioenj-tt-ucshzm left medial compartmentalnarrowing and mild osteophytosis. PELVIS [...] leg documented in this encounter Care Teams Electrical Logger Relationship Specialty Start Date End Date Mariluz Watts MD [address] [facility] [address] [place] [address] PCP - General 08/22/10 documented as of this encounter
--- OUTSIDE RECORDS SUMMARY | 2024-05-21 06:13 | XMS_ITS | Encounter Summary ---
Author Organization [facility] [place] [address] Care Team Providers Care Screen Printing Press Operator Name Role Phone Mariluz Watts MD Primary Care Provider [phone] Reason for Visit * Reason Comments Rosacea Encounter Details Date Type Department Care Team (Late st Contact Info) Description 05/02/2012 3:30 PM EDT Follow-[place] [address] Chayo Willingham MD [facility] [place] [address] Rosacea (Primary Dx); Sebaceous hyperplasia Discharge Disposition: [...] concerns. Chayo Willingham MD Resident in Dermatology [facility] Patient seen and evaluated Saira Fernandez MD Section of Dermatology [facility] documented in this encounter Plan of Treatment Upcoming Encounters Date Type Department Care Team (Late st Contact Info) Description 11/16/2024 1:00 PM EST Office Visit General Surgery at [place] [phone] Paula Harris PA [facility] [place] [address] 01/26/2025 9:50 AM EDT Appointment Mammography/DXA at [place] [phone] Joan Deutsch [facility] [place] [address] 01/26/2025 10:50 AM EDT Office Visit General Surgery at [place] [phone] Joan Deutsch [facility] [place] [address] documented as of this encounter Visit Diagnoses Diagnosis Rosacea- Primary Sebaceous hyperplasia Other specified disease of sebaceous glands documented in this encounter Care Teams Screen Printing Press Operator Relationship Specialty Start Date End Date Mariluz Watts MD [address] [place] [address] [address] [facility] [address] [place] [address] PCP - General 08/22/10 documented as of this encounter
--- OUTSIDE RECORDS SUMMARY | 2024-05-21 06:13 | XMS_ITS | Encounter Summary ---
[place] [address] Care Team Providers Care Corner Brace Block Machine Operator Name Role Phone Mariluz Watts MD Primary Care Provider Encounter Details Date Type Department Care Team (Late st Contact Info) Description 07/22/2012 2:39 PM EDT - 07/22/2012 4:52 PM EDT Surgery [place] [address] Nick Ervin MD [address] [place] [address] TOTAL HIP ARTHROPLASTY, ANTERIOR APPROACH (WRVU 19.6) [...] a bowel movement. You can take an gysb-yub-pdoxcgt medication, miralax if needed to combatconstipation. 2. [...] for L ARSLAN anterior Hueter approach w/ Lugoff table. Pt has a cerclage wire for intra-op calcar fracture so limited to 50% WB L LE. 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 She used the leg all terrain vehicle racer to assist L LE back into bed [...] POD#3 L ARSLAN anterior Heuter approach w/ Lugoff table. Pt has a cerclage wire for [...] x Pt will move supine<>sit w/ leg all terrain vehicle racer (I). x Pt will move sit<>stand (I) [...] minutes functional activity GINA LLANOS PT Pager: [phone] * Hero Dsouza - 07/25/2012 2:13 PM EDT Solar Thermal Installer Encounter Note Patient Name: Diamond Gaming : [id number] MR#: [id number] Admit Date: 07/22/2012 1:26 PM Hospital Day 3 days Narrative:Visited to introduce and assess acceptance of Solar Thermal Installer services. Assessment:Patient coping positively with stresses of illness/hospitalization at this time. Pt was in the chair and in good spirits. Pt is living by herself an hs children and grand children. 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 Intervention and Outcome:Solar Thermal Installer services accepted. Conversation to build trusting relationship.Provided [...] re: transfer. Supervision, extra time, and leg all terrain vehicle racer needed for sit to supine transfer. Supervision [...] minutes; there ex functional x 2 Pager: [phone] ELLA MOYER Occupational Therapy Rehabilitation Department * [...] for L ARSLAN anterior Hueter approach w/ Lugoff table. Pt has a cerclage wire for intra-op calcar fracture so limited to 50% WB L LE. 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 ?? She used leg all terrain vehicle racer and almost had L LE up and [...] POD#2 L ARSLAN anterior Heuter approach w/ Lugoff table. Pt has a cerclage wire for [...] x Pt will move supine<>sit w/ leg all terrain vehicle racer (I). x Pt will move sit<>stand (I) [...] minutes functional activity GINA LLANOS PT Pager: [phone] * Jamee Cabrera OTA - 07/24/2012 4:27 [...] HOB elevated, extra time, and using leg all terrain vehicle racer to assist LLE. Supervision sit to stand. [...] minutes; there ex functional x 2 Pager: [phone] ELLA MOYER Occupational Therapy Rehabilitation Department * Joan Carballo RN - 07/23/2012 10:30 PM EDT Assumed care of patient from [phone]. AOX4. HRR. VSS. Pt denies SOB, chest [...] RN, and lives with her grandchild and [place] pratt in [facility]. Pt had R ARSLAN In 03/04. Pt denies the need for in-pt rehab and feels she can manage at home with VNA. Pt requests [facility] for services. Pt will be on RIvaroxaban [...] AP Pelvis and Lateral Hip X-Rays. ASHLEY MICEHLLE MD 07/23/2012 Attending Note. I have seen [...] Procedure Performed: Right total hip arthroplasty, cementless, mzhotsv-jp-gusqbdf Components Used: Millmont Trident 52 shell outer diameter Femoral head 32-4 mm Millmont Accolade Femoral stem size 4, 127 deg [...] a bowel movement. You can take an ldut-dxo-bbireha medication, miralax if needed to combatconstipation. 2. [...] PM Nick Ervin MD [facility] [phone] None Joint Appt Health Question Three C Ortho [facility] [phone] None Future Orders Please Complete By Expires Referral to Home Health [[id number] CPT(R)] Process Instructions: Scheduling Instructions: Comments: [facility] PHONE: [phone] FAX: [phone] DOCUMENTATION FOR VNA SERVICES (INCLUDING THOSE PATIENTS WITH MEDICARE COVERAGE REQUIRING HOME VNA SERVICES AND/OR HOSPICE SERVICES) Diamond Gaming Discharge to own home: [address] [place] [phone] (home) No relevant phone numbers on file. In discussion with the attending physician, it is certified that this patient is under their care and that they, or a nurse practitioner, clinical nurse specialist or physician's dietitian assistant who is working directly with them, [...] effort and are for medical reasons or yazidi services of infrequently or of short duration when for other reasons) All VNA agencies which cover the area of patient's residence have been reviewed, either verbally mathew writing, and patient/family have chosen the home health care agency as noted for home services. Questions: Responses: Agency name and contact information [facility] Patient location post discharge home What services are requested Start date Responsible MD post discharge contact info Provider Contact Information: Primary Care Provider: MARILUZ WATTS MD [phone] Hospital Attending: Nick Ervin MD Department of Orthopaedic Surgery Joints: [phone] Signed: MORENA AWAD 07/25/2012 * Plan of [...] for L ARSLAN anterior Hueter approach w/ Lugoff table. Pt has a cerclage wire for [...] Procedure Date: 08/18/2006 ??? Created by interface [id number] Procedure Date: 01/27/2007 ??? Created by interface [...] >4.0CM, TRUNK performed by TIRSO CHAUDHARI at [facility] MAIN OR ??? Colonoscopy, diagnostic 02/29/2012 COLONOSCOPY, DIAGNOSTIC performed by RAJAT KUO at [facility] ENDOSCOPY ??? 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 Gait pattern: Lehe-fw-zdzt and cautious about not putting too much [...] POD#1 L ARSLAN anterior Heuter approach w/ Lugoff table. Pt. tolerated today???s session fairly well [...] x Pt will move supine<>sit w/ leg all terrain vehicle racer (I). x Pt will move sit<>stand (I) [...] treatment: 0 minutes GINA LLANOS, PT Pager: [phone] * Initial Assessments - Roly Garvin, OT [...] dog. 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 Walk in shower [...] minutes Total timed interventions: 0 minutes Pager: [phone] ROLY GARVIN OT 07/23/2012 Occupational Therapy Rehabilitation [...] Date: Jul 2211-11 Surgeon: Nick Ervin MD Laundry Folder: Ashley Michelle MD Anesthesia: GET Pre-operative diagnosis: Left hip osteoarthritis Body mass index is 35.35 kg/(m^2). Post-operative diagnosis: Same Surgical Procedure Performed: Injection left hip with 10 cc marcaine 0.25% with epi, into skin and subcutaneous tissues (CPT nmit59102) left total hip arthroplasty, anterior Hueter approach with Lugoff table (CPT code 63212) Left hip intraoperative radiologic examination (CPT code 89776) Amicar infusion (5 g IV load, then 1g/hr x 3 hrs) Components Used: Millmont Accolade stem, size 4, 127 degrees Trident [...] wasperformed. Patient was positioned supine on the Lugoff table, both feet and ankles were padded [...] made through skin, the subcutaneous tensor fascia haezl fascia was identified and split in line. [...] liner was placed and impacted according to equipment processer storage's instructions. Any impinging osteophytes were removed. The [...] and laterally. At the same time, the dietitian assistant leaned against the thigh to optimize [...] Implant Name Type Inv. Item Serial No. Senior Microstrategy Developer Lot No. LRB No. Used Action SHELL,ACETABULAR,TRIDENT,PSL,S ([id number]) (AUTOREQ) - [id number] IMPLANTS SHELL,ACETABULAR,TRIDENT,PSL,S ([id number]) (AUTOREQ) [email or web address] - [id number] Left 1 Implanted INSERT,TRIDENT,ALUMINA,0,DEG,3 ([id number]) (AUTOREQ) - [id number] IMPLANTS INSERT,TRIDENT,ALUMINA,0,DEG,3 ([id number]) (AUTOREQ) [email or web address] - [id number] Left 1 Implanted STEM,FEM,ACCOLADE,127,DEG,NECK ([id number]) (AUTOREQ) - [id number] IMPLANTS STEM,FEM,ACCOLADE,127,DEG,NECK ([id number]) (AUTOREQ) [email or web address] - [id number] Left 1 Implanted CABLE,SS,CRMP,1.4T576NO,STR ([id number]) - [id number] IMPLANTS CABLE,SS,CRMP,1.1W210MN,STR ([id number]) [facility] - [id number] Left 1 Implanted HEAD,FEM,ALUMINA,V40,-4X32MM ([id number]) (AUTOREQ) - [id number] IMPLANTS HEAD,FEM,ALUMINA,V40,-4X32MM ([id number]) (AUTOREQ) [email or web address] - [id number] Left 1 Implanted documented in this encounter Plan of Treatment Upcoming Encounters Date Type Department Care Team (Late st Contact Info) Description 11/16/2024 1:00 PM EST Office [place] [address] Paula Harris PA [facility] [address] 01/26/2025 9:50 AM EDT Appointment Mammography/[place] [phone] Joan Deutsch APRN [facility] [address] 01/26/2025 10:50 AM EDT Office [place] [address] Joan Deutsch ASSET COORDINATOR [facility] [place] [address] Pending Results Name Type Priority Associated Diagnoses [...] intervals supplied above were not validated at [facility] [place] [place]. Results from pediatric patients should be interpreted [...] EDT Nick Ervin MD HEMATOLOGY ORDERABLE S [facility] [employer]UM * (ABNORMAL) Basic Metabolic Panel (non-fasting) (07/24/2012 3:53 AM EDT) [facility] Glucose 127 60 - 199 mg/dL CERNER MILLENNIUM Comment:Diabetes: >=200 mg/d L plus symptoms Blood Urea Nitrogen 16 8 - 18 mg/dL CERNER MILLENNIUM Creatinine 0.58(L) 0.70 - 1.20 mg/dL CERNER MILLENNIUM Comment: Please note that the pediatric reference intervals supplied above were not validated at [facility] [place] [place]. Results from pediatric patients should be interpreted [...] MILLENNIUM Est Glomerular Filtration Rate >60 >=60 [facility] Comment: The National Kidney Disease Education Program [...] EDT Nick Ervin MD HEMATOLOGY ORDERABLE S [facility] * (ABNORMAL) Basic Metabolic Panel (non-fasting) (07/23/2012 4:36 AM EDT) [facility] Glucose 148 60 - 199 mg/dL CERNER MILLENNIUM Comment:Diabetes: >=200 mg/d L plus symptoms Blood Urea Nitrogen 14 8 - 18 mg/dL CERNER MILLENNIUM Creatinine 0.51(L) 0.70 - 1.20 mg/dL CERNER MILLENNIUM Comment: Please note that the pediatric reference intervals supplied above were not validated at [facility] [place] [place]. Results from pediatric patients should be interpreted [...] Ervin MD CHEMISTRY ORDERABLES Performing Organization Address City/[facility]/ZIP Co de Phone Number CERRIGO MILLENNIUM [...] MD HEMATOLOGY ORDERABLE S Performing Organization Address City/[facility]/ZIP Co de Phone Number VALERIE MAYERIUM [...] EDT Nick Ervin MD HEMATOLOGY ORDERABLE S [facility] MANISHAENNIUM * (ABNORMAL) CBC (with Diff) (07/22/2012 [...] PM EDT) Surgical Pathology Report ? [facility] ? Provider: ?? NICK ERVIN ? Pt. Name: ?? DIAMOND GAMING ? Acc #: ?[id number] ?Pt. ? Col Date: ?? 07/22/2012 ?/Sex: [...] MD PATHOLOGY/CYTOLOGY O JOSELUIS Performing Organization Address [facility] de Phone Number CERRIGO MILLENNIUM * Specimen to Pathology (surgical or derm) (07/22/2012 4:18 PM EDT) AP Specimen 07/22/2012 4:18 PM EDT 07/22/2012 4:18 PM EDT Narrative CERNER MILLENNIUM - 07/22/2012 4:18 PM EDT Specimen requisition ordered. ??Separate Pathology report to follow Nick Ervin MD PATHOLOGY/CYTOLOGY O JOSELUIS Performing Organization Address [facility] de Phone Number CERNER MANISHAENNIUM documented in [...] given at 1602)0800 (New Bag - Provider: hTao Gaona RN)1700 (New Bag - Provider: Thao [...] (Given - Provider: Marily Murphy RN) multivitamin Exzh-Tl-HE-Min (THERAPEUTIC-M) 27-0.4 mg tablet 1 tablet (CANCELED) [...] Murphy RN)2099 (Due - Provider: Morgan Smith [facility]) sodium phosphates (FLEET) 19-7 gram/118 mL rectal [...] RN) 2099 (Due - Provider: Morgan Smith [facility]) Continuous Medication Order 07/23/2012 07/24/2012 07/25/2012 lactated [...] Routine documented in this encounter Care Teams Corner Brace Block Machine Operator Relationship Specialty Start Date End Date Mariluz Watts MD [address] [place] [address] PCP - General 08/22/10 documented as of this encounter
--- OUTSIDE RECORDS SUMMARY | 2024-05-21 06:13 | XMS_ITS | Encounter Summary ---
[place] [address] Care Team Providers Care Electric Motor Repairing Supervisor Name Role Phone Mariluz Watts MD Primary Care Provider [phone] Encounter Details Date Type Department Care Team (Late Contact Info) Description 07/17/2012 Anti-Coag Telephone [place] [address] Kian Ervin MD [address] [place] [address] Social History Tobacco Use Types Packs/Day Years [...] PM EST Office [place] [address] Paula Harris PA [facility] [place] [address] 01/26/2025 9:50 AM EDT Appointment Mammography/DXA at [place] [phone] Joan Deutsch, [facility] [place] [address] 01/26/2025 10:50 AM EDT Office [place] [address] Joan Deutsch, [facility] [place] [address] documented as of this encounter Visit Diagnoses Not on filedocumented in this encounter Care Teams Electric Motor Repairing Supervisor Relationship Specialty Start Date End Date Mariluz Watts MD [address] [place] [address] PCP - General 08/22/10 documented as of this encounter
--- OUTSIDE RECORDS SUMMARY | 2024-05-21 06:13 | XMS_ITS | Encounter Summary ---
[place] [address] Care Team Providers Care Environmental Monitoring Technician Name Role Phone Mariluz Watts MD Primary Care Provider [phone] Encounter Details Date Type Department Care Team (Late st Contact Info) Description 07/17/2012 Anti-Coag Telephone [place] [address] Kian Ervin MD [address] [place] [address] Social History Tobacco Use Types Packs/Day Years [...] PM EST Office Visit General Surgery at [place] [phone] Paula Harris PA [facility] [place] [address] 01/26/2025 9:50 AM EDT Appointment Mammography/DXA at [place] [phone] Joan Deutsch [facility] ATTENDANT [facility] [place] [address] 01/26/2025 10:50 AM EDT Office Visit General Surgery at [place] [phone] Joan Deutsch [facility] [place] [place] [address] documented as of this encounter Visit Diagnoses Not on filedocumented in this encounter Care Teams Environmental Monitoring Technician Relationship Specialty Start Date End Date Mariluz Watts MD [address] [place] [address] PCP - General 08/22/10 documented as of this encounter
--- OUTSIDE RECORDS SUMMARY | 2024-05-21 06:13 | XMS_ITS | Encounter Summary ---
Author Organization [facility] [place] [address] Care Team Providers Care Instructor Dramatic Arts Name Role Phone Mariluz Watts MD Primary Care Provider [phone] Encounter Details Date Type Department Care Team (Latest Contact Info) Description 01/31/2012 1:06 PM EDT - 01/31/2012 11:59 PM EDT Hospital Encounter XRay at [address] [place] [address] CLINIC, Kian Stone MD [address] [place] [address] Hip pain Discharge Disposition: Home Social History [...] Procedure: LEFT HIP INJECTION UNDER FLUOROSCOPY ACC#: [id number] Indication for Procedure: Left hip pain, degenerative [...] under fluoroscopy. Resident/Fellow: Dr. Devaughn Mcdonough (Pager #[phone]) Attending: Dr. Marly Torres ATTENDING ATTESTATION IMarly MD MS, supervised the resident/fellow during the hanna and critical portions of theprocedure and was immediately available throughout. documented in this encounter Plan of Treatment Upcoming Encounters Date Type Department Care Team (Late st Contact Info) Description 11/16/2024 1:00 PM EST Office [place] [phone] Paula Harris PA [facility] [place] [address] 01/26/2025 9:50 AM EDT Appointment Mammography/[place] [phone] Joan Deutsch APRN [facility] [place] [address] 01/26/2025 10:50 AM EDT Office [place] [phone] Joan Deutsch APRN [facility] [place] [address] documented as of this encounter Procedures Procedure [...] HIP INJECTION UNDER FLUOROSCOPY ? ACC#: ?? [id number] ?Indication ?? for Procedure: Left hip pain, [...] fluoroscopy. ?Resident/Fellow: ?? Dr. Devaughn Mcdonough (Pager #[phone]) ? Attending: ?? Dr. Marly Torres ?ATTENDING [...] 1945 Procedure: LEFT HIP INJECTION UNDERFLUOROSCOPY ACC#: [id number] Indication for Procedure: Left hip pain, degenerative [...] jointinjection under fluoroscopy. Resident/Fellow: Dr. Devaughn Mcdonough (Pager#[phone]) Attending: Dr. Marly Torres ATTENDING ATTESTATION I, [...] EDT documented in this encounter Care Teams Instructor Dramatic Arts Relationship Specialty Start Date End Date Mariluz Watts MD [address] [facility] [place] [address] PCP - General 08/22/10 documented as of this encounter
--- OUTSIDE RECORDS SUMMARY | 2024-05-21 06:13 | XMS_ITS | Encounter Summary ---
[place] [address] Care Team Providers Care Government Employee Name Role Phone Mariluz Watts MD Primary Care Provider [phone] Reason for Visit * Reason Comments Left Hip Pain Encounter Details Date Type Department Care Team (Late st Contact Info) Description 07/21/2012 8:35 AM EDT Office [place] [address] [place] [address] Other specified pre-operative examination; Hip pain Discharge [...] PM EST Office [place] [address] Paula Harris PA [facility] [place] [address] 01/26/2025 9:50 AM EDT Appointment Mammography/[place] [phone] Joan Deutsch, GE [facility] [place] [address] 01/26/2025 10:50 AM EDT Office [place] [address] Joan Deutsch APRN [facility] [place] [address] documented as of this encounter Visit Diagnoses Diagnosis Other specified pre-operative examination Hip pain Pain in joint, pelvic region and thigh documented in this encounter Care Teams Government Employee Relationship Specialty Start Date End Date Mariluz Watts MD [address] [place] [address] PCP - General 08/22/10 documented as of this encounter
--- OUTSIDE RECORDS SUMMARY | 2024-05-21 06:13 | XMS_ITS | Encounter Summary ---
Author Organization [facility] [place] [address] Care Team Providers Care Molding Plasterer Name Role Phone Mariluz Watts MD Primary Care Provider [phone] Encounter Details Date Type Department Care Team (Latest Contact Info) Description 01/25/2012 2:17 PM EDT - 01/25/2012 11:59 PM EDT Hospital Encounter XRay at [address] [place] [address] S/P hip replacement; Left knee pain Social [...] PM EST Office Visit General Surgery at [place] [phone] Paula Harris PA [facility] [place] [address] 01/26/2025 9:50 AM EDT Appointment Mammography/[place] [phone] Joan Deutsch APRN [facility] [place] [address] 01/26/2025 10:50 AM EDT Office [place] [phone] Joan Deutsch APRN [facility] [place] [address] documented as of this encounter Procedures Procedure [...] alignment in the weight bearing position. Mechanical Douglas: ??The patient is status post right total [...] quadriceps tendon or in the joint bursa. Angus view shows moderate lateral facet narrowing, right greater than left. Schuss views demonstrate qqzsneaj-wl-nzgqoj left medial compartmental narrowing and mild osteophytosis. ?? PELVIS AND HIPS: COMPARISON: ??12/23/08. ?? FINDINGS: ??Patient is status post right noncemented hip arthroplasty. No heterotopic bone formation. No obvious signs of loosening or infection. Mild left hip osteoarthritis. The sacroiliac joints are within normal limits. No labral-type calcifications detected. ?? Procedure Note Dveaughn Barber MD - 02/12/2012 STANDING KNEE ALIGNMENT [...] extremity alignment inthe weight bearing position. Mechanical Douglas: The patient is status post right total [...] the quadriceps tendon or in the jointbursa. Angus view shows moderate lateral facet narrowing, right greater thanleft. Schuss views demonstrate sbidnwcp-fi-ytpvvz left medial compartmentalnarrowing and mild osteophytosis. PELVIS [...] leg documented in this encounter Care Teams Molding Plasterer Relationship Specialty Start Date End Date Mariluz Watts MD [address] [place] [address] PCP - General 08/22/10 documented as of this encounter
--- OUTSIDE RECORDS SUMMARY | 2024-05-21 06:13 | XMS_ITS | Encounter Summary ---
Author Organization [facility] [place] [address] Care Team Providers Care Tariff Inspector Name Role Phone Mariluz Watts MD Primary Care Provider [phone] Reason for Visit * Reason Comments Follow-up Encounter Details Date Type Department Care Team (Late st Contact Info) Description 05/02/2012 2:00 PM EDT Follow-Up [place] [address] Abrahan Merlos MD [facility] DR HEMATOLOGY/[place] [address] Breast cancer, stage 2 (Primary Dx) Discharge [...] through April of 2015. Abrahan Merlos MD postdoctoral fellow in Hematology-Oncology documented in this encounter Plan of Treatment Upcoming Encounters Date Type Department Care Team (Late st Contact Info) Description 11/16/2024 1:00 PM EST Office [place] [phone] Paula Harris PA [facility] [place] [address] 01/26/2025 9:50 AM EDT Appointment Mammography/[place] [phone] Joan Deutsch CLOTH MERCERIZER OPERATOR [facility] [place] [address] 01/26/2025 10:50 AM EDT Office [place] [phone] Joan Deutsch CLOTH MERCERIZER OPERATOR [facility] [place] [address] documented as of this encounter Procedures Procedure Name Priority Date/Time Associated Diagnosis Comments VITAMIN D, 25-HYDROXY Routine 05/02/2012 1:09 PM EDT Breast cancer, stage 2 HEPATIC FUNCTION PANEL STAT 05/02/2012 1:09 PM EDT Breast cancer, stage 2 documented in this encounter Results * VIT D Total 25 Hydroxy (05/02/2012 1:09 PM EDT) Pathologist [facility] Vitamin D Total 25 OH 41 30 - 100 ng/mL [facility] Comment: Deficient <10 ng/mL Insufficient 10 [...] Hydroxy assays are being analyzed by the [facility]. ??There is NO CHANGE in units. ??Please contact the chemistry laboratory at [phone] with questions. Blood specimen (specimen) 05/02/2012 1:09 PM EDT 05/02/2012 1:11 PM EDT Narrative Resulting Agency Comment Spec In Lab Abrahan Merlos MD CHEMISTRY ORDERABLES [facility] * Hepatic Function Panel (05/02/2012 1:09 PM EDT) Pathologist [facility] Protein, Total 6.8 6.4 - 8.3 gm/dL [facility] Albumin 4.6 3.2 - 5.2 gm/dL [facility] Aspartate Aminotransferase 13 0 - 30 unit/L [facility] Alanine Aminotransferase 15 0 - 30 unit/L [facility] Alkaline Phosphatase 97 40 - 104 unit/L [facility] Bilirubin, Total 0.2 0.2 - 1.3 mg/dL [facility] Bilirubin, Direct 0.1 0.0 - 0.3 mg/dL [facility] Blood specimen (specimen) 05/02/2012 1:09 PM EDT 05/02/2012 1:11 PM EDT Narrative Resulting Agency Comment Spec In Lab Abrahan Merlos MD CHEMISTRY ORDERABLES [facility] documented in this encounter Visit Diagnoses Diagnosis Breast cancer, stage 2- Primary Malignant neoplasm of breast (female), unspecified site documented in this encounter Care Teams Tariff Inspector Relationship Specialty Start Date End Date Mariluz Watts MD [address] [place] [address] PCP - General 08/22/10 documented as of this encounter
--- OUTSIDE RECORDS SUMMARY | 2024-05-21 06:13 | XMS_ITS | Encounter Summary ---
[place] [address] Care Team Providers Care Broommaker Name Role Phone Mariluz Watts MD Primary Care Provider [phone] Encounter Details Date Type Department Care Team (Latest Contact Info) Description 07/08/2012 12:00 PM EDT Clinical [place] [address] DJD (degenerative joint disease) of hip (Primary [...] PM EST Office Visit General Surgery at [place] [phone] Paula Harris PA [facility] [place] [address] 01/26/2025 9:50 AM EDT Appointment Mammography/[place] [address] Joan Deutsch APRN [facility] [place] [address] 01/26/2025 10:50 AM EDT Office Visit General Surgery at [place] [phone] Joan Deutsch APRN [facility] [place] [address] documented as of this encounter Procedures Procedure [...] (Bezet) 412 ms MUSE SYSTEM Calculated P [place] 58 degrees MUSE SYSTEM Calculated R [place] -26 degrees MUSE SYSTEM Calculated T [place] 37 degrees MUSE SYSTEM INTERPRETATION Sinus rhythm [...] thigh documented in this encounter Care Teams Broommaker Relationship Specialty Start Date End Date Mariluz Watts MD [address] [place] [address] [address] PCP - General 08/22/10 documented as of this encounter
--- OUTSIDE RECORDS SUMMARY | 2024-05-21 06:13 | XMS_ITS | Encounter Summary ---
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 Social history: She lives alone, she has her son and cfyjcskg-ol-apz live in close by. She drives. She [...] radiographs from 2005,although she is not yet ftze-qn-htcl she has lost approximately 50% of her [...] PM EST Office Visit [place] [phone] Paula Hraris PA [facility] [place] [address] 01/26/2025 9:50 AM EDT Appointment Mammography/[place] [phone] Joan Deutsch APRN [facility] [place] [address] 01/26/2025 10:50 AM EDT Office Visit [place] [address] Joan Deutsch APRN [facility] [place] [address] documented as of this encounter Procedures Procedure [...] (Bezet) 412 ms MUSE SYSTEM Calculated P Chadwick 58 degrees MUSE SYSTEM Calculated R Chadwick -26 degrees MUSE SYSTEM Calculated T Chadwick 37 degrees MUSE SYSTEM INTERPRETATION Sinus rhythm [...] GAMING ?Ordered By: NICK RUIZ ? MR#: [id number] ?LOC: ??4V ? /Sex: ??1945 (66 years), [...] Urine Dipstick Clear Clear [facility] Specific [place] Urine Automated 1.017 1.002 - 1.030 [facility] Color, Urine Dipstick Yellow Yellow [facility] RBC, Urine <1 0 - 4 /HPF [facility] WBC, Urine 1 0 - 5 /HPF [facility] Urine specimen (specimen) 07/08/2012 1:07 PM EDT 07/08/2012 1:21 PM EDT Narrative Resulting Agency Comment Spec In Lab Nick Ruiz MD URINE ORDERABLES [facility] * Hemoglobin A1c (07/08/2012 12:50 PM EDT) Hemoglobin A1c 5.5 4.3 - 6.1 % [facility] Estimated Average Glucose 111 mg/dL [facility] Comment: eAG equivalents for HbA1c percentages: HbA1c(%) [...] into estimated average glucose values. ??Diabetes Care 2008:31(8):5437-4968. Blood specimen (specimen) 07/08/2012 12:50 PM EDT 07/08/2012 1:21 PM EDT Narrative Resulting Agency Comment Spec In Lab Nick Ruiz MD CHEMISTRY ORDERABLES Performing Organization Address [facility] Phone Number [facility] * Protein, total (07/08/2012 12:50 PM EDT) [facility] Protein, Total 6.9 6.4 - 8.3 gm/dL [facility] Blood specimen (specimen) 07/08/2012 12:50 PM EDT 07/08/2012 1:21 PM EDT Narrative Resulting Agency Comment Spec In Lab Nick Ruiz MD CHEMISTRY ORDERABLES Performing Organization Address [facility] Phone Number [facility] * Albumin Level (07/08/2012 12:50 PM EDT) [facility] Albumin 4.7 3.2 - 5.2 gm/dL [facility] Blood specimen (specimen) 07/08/2012 12:50 PM EDT 07/08/2012 1:21 PM EDT Narrative Resulting Agency Comment Spec In Lab Nick Ruiz MD CHEMISTRY ORDERABLES Performing Organization Address [facility] Phone Number [facility] * High Sensitivity CRP (07/08/2012 12:50 [...] ORDERABLE S Performing Organization Address [facility] de Phone Number [facility] * APTT (07/08/2012 12:50 PM EDT) Partial Thromboplastin Time 30 25 - 35 sec [facility] Comment: Recommended therapeutic PTT range for full dose unfractionated heparin is 80-114 seconds. Blood specimen (specimen) 07/08/2012 12:50 PM EDT 07/08/2012 1:21 PM EDT Narrative Resulting Agency Comment Spec In Lab Authorizing Provider Result Froy Ruiz MD HEMATOLOGY ORDERABLE S Performing Organization Address [facility] Phone Number [facility] * Prothrombin Time (07/08/2012 12:50 PM EDT) Prothrombin Time 12.6 11.9 - 14.7 sec [facility] Comment: [facility] Transfusion Committee Guidelines: INR less than 2.0, PTT less than OR equal to 43.5 seconds, or Fibrinogen greater than or equal to 100 mg/dl indicate adequate procoagulant activity for hemostasis in patients without underlying bleeding disorders. International Normalization Ratio 0.9 0.9 - 1.1 [facility] Blood specimen (specimen) 07/08/2012 12:50 PM EDT 07/08/2012 1:21 PM EDT Narrative Resulting Agency Comment Spec In Lab Authorizing Provider Result Froy Ruiz MD HEMATOLOGY ORDERABLE S Performing Organization Address [facility] de Phone Number [facility] * Basic Metabolic Panel (non-fasting) (07/08/2012 12:50 PM EDT) Glucose 93 60 - 199 mg/dL [facility] Comment:Diabetes: >=200 mg/d L plus symptoms Blood Urea Nitrogen 14 8 - 18 mg/dL [facility] Creatinine 0.74 0.70 - 1.20 mg/dL [facility] Comment: Please note that the pediatric reference intervals supplied above were not validated at [facility]. Results from pediatric patients should be [...] Nick Ruiz MD HEMATOLOGY ORDERABLE S [facility] documented in this encounter Visit Diagnoses Diagnosis DJD (degenerative joint disease) of hip- Primary Osteoarthrosis, unspecified whether generalized or localized, pelvic region and thigh DJD (degenerative joint disease) of hip Osteoarthrosis, unspecified whether generalized or localized, pelvic region and thigh documented in this encounter Care Teams Asbestos Cement Sheet Supervisor Relationship Specialty Start Date End Date Mariluz Watts MD [address] [place] [address] PCP - General 08/22/10 documented as of this encounter
--- OUTSIDE RECORDS SUMMARY | 2024-05-21 06:13 | XMS_ITS | Encounter Summary ---
Author Organization [facility] [place] [id number] Care Team Providers Care Admissions Clinician Name Role Phone Mariluz Watts MD Primary Care Provider [phone] Reason for Visit * Reason Comments Rosacea Encounter Details Date Type Department Care Team (Late st Contact Info) Description 11/13/2011 2:20 PM EST [place] [address] Chayo Willingham MD [facility] [place] [address] Rosacea (Primary Dx); Sebaceous hyperplasia Discharge Disposition: [...] supervision with direct supervision immediately available. (definition: [facility] GME Policy Statement on Graduate Medical Education, [...] concerns. Chayo Willingham MD Resident in Dermatology [facility] Patient seen and evaluated with staff regional sales engineer: Chetan Adrian MD Section of Dermatology [facility] documented in this encounter Plan of Treatment Upcoming Encounters Date Type Department Care Team (Late st Contact Info) Description 11/16/2024 1:00 PM EST Office Visit [place] [address] Paula Harris PA [facility] [place] [address] 01/26/2025 9:50 AM EDT Appointment Mammography/DXA at [place] [phone] Joan Deutsch [facility] [place] [address] 01/26/2025 10:50 AM EDT Office [place] [address] Joan Deutsch ASSAYER HELPER [facility] [place] [address] documented as of this encounter Visit Diagnoses Diagnosis Rosacea- Primary Sebaceous hyperplasia Other specified disease of sebaceous glands documented in this encounter Care Teams Admissions Clinician Relationship Specialty Start Date End Date Mariluz Watts MD [address] [place] [address] [address] [place] [address] PCP - General 08/22/10 documented as of this encounter
--- OUTSIDE RECORDS SUMMARY | 2024-05-21 06:13 | XMS_ITS | Encounter Summary ---
Author Organization [facility] [place] [address] Care Team Providers Care Paint Tester Name Role Phone Mariluz Watts MD Primary Care Provider [phone] Encounter Details Date Type Department Care Team (Late st Contact Info) Description 07/21/2012 External Results [place] [address] Social History Tobacco Use Types Packs/Day Years [...] EST Office Visit [place] [address]-1000 Paula Harris PA [facility] [place] [address] 01/26/2025 9:50 AM EDT Appointment Mammography/[place] [address] Joan Deutsch, [facility] [place] [address] 01/26/2025 10:50 AM EDT Office Visit [place] [address] Joan Deutsch, [facility] [place] [address] documented as of this encounter Visit Diagnoses Not on filedocumented in this encounter Care Teams Paint Tester Relationship Specialty Start Date End Date Mariluz Watts MD [address] [place] [address] [address] [place] [address] PCP - General 08/22/10 documented as of this encounter
--- OUTSIDE RECORDS SUMMARY | 2024-05-21 06:14 | XMS_ITS | Encounter Summary ---
Author Organization [facility] [place] [address] Care Team Providers Care Barrel Assembly Inspector Name Role Phone Mariluz Watts MD Primary Care Provider [phone] Encounter Details Date Type Department Care Team (Late st Contact Info) Description 10/26/2010 1:15 PM EST [place] [address] Gardenia Marquez MD [facility] [place] [place] [address] Discharge Disposition: Home Social History Tobacco Use [...] PM EST Office [place] [address] Paula Harris PA [facility] [place] [place] [address] 01/26/2025 9:50 AM EDT Appointment Mammography/[place] [address] Joan Deutsch, [facility] [place] [address] 01/26/2025 10:50 AM EDT Office [place] [address] Joan Deutsch, [facility] [place] [address] documented as of this encounter Visit Diagnoses Not on filedocumented in this encounter Care Teams Barrel Assembly Inspector Relationship Specialty Start Date End Date Mariluz Watts MD [address] [place] [address] [address] [place] [address] PCP - General 08/22/10 documented as of this encounter
--- OUTSIDE RECORDS SUMMARY | 2024-05-21 06:14 | XMS_ITS | Encounter Summary ---
Author Organization [facility] Address [address] [place] [address] Care Team Providers Care Sales Advisory Manager Name Role Phone Mariluz Watts MD Primary Care Provider [phone] Encounter Details Date Type Department Care Team ([facility] st Contact Info) Description 11/01/2020 Lab Requisition [facility] Pathology & Laboratory Medicine - [address] [address] Outr Resulting Lab, Provider Social History Tobacco [...] Outr Resulting Lab MICROBIOLOGY - GENERAL ORDERABLES [facility] [address] [place] [address] * COVID-19 TESTING (11/01/2020 8:30 EST) COVID-19 rt-PCR Result Negative Negative 11/02/2020 12:29 EST [facility] Comment: This test was developed and its performance characteristics determined by [facility]. It has not been cleared or approved [...] testing. This test is based on the [facility] COVID-19 Emergency Use Authorization (EUA) assay, with minor modification as defined by the FDA Performed on the [employer] Pro RT-PCR System. Negative results do not preclude 2019-nCoV infection and should not be used as the sole basis for treatment or other patient management decisions. Negative results must be combined with clinical observations, patient history, and epidemiological information. Performing Lab [facility] Lab 11/02/2020 12:29 EST [facility] Swab 11/01/2020 8:30 EST 11/01/2020 16:03 EST Provider Outr Resulting Lab MICROBIOLOGY - GENERAL ORDERABLES [facility] [address] [place] [address] documented in this encounter Visit Diagnoses Not on filedocumented in this encounter Care Teams Sales Advisory Manager Relationship Specialty Start Date End Date Mariluz Watts MD [address] [place] [address] PCP - General Family Medicine - Primary Care 12/26/22 documented as of this encounter
--- OUTSIDE RECORDS SUMMARY | 2024-05-21 06:14 | XMS_ITS | Referral Summary ---
Author Organization [facility] Address [address] [place] [address] Care Team Providers Care Garage Construction Equipment Mechanic Name Role Phone Mariluz Watts MD Primary Care Provider [phone] Social History Tobacco Use Types Packs/Day Years Used Date Smoking Tobacco: Never Assessed Sex and Gender Information Value Date Recorded Sex Assigned at Not on file Gender Identity Not on file Sexual Orientation Not on file Plan of Treatment Not on file Care Teams Garage Construction Equipment Mechanic Relationship Specialty Start Date End Date Mariluz Watts MD [address] [place] [address] [address] [place] [phone] PCP - General Family Medicine - Primary Care 12/26/22
--- OUTSIDE RECORDS SUMMARY | 2024-05-21 06:14 | XMS_ITS | Encounter Summary ---
Author Organization [facility] Address [address] [place] [address] Care Team Providers Care Desk Interviewer Name Role Phone Unavailable Primary Care Provider Unavailabl e Encounter Details Date Type Department Care Team ([facility] st Contact Info) Description 12/18/1999 Results Only [facility] [address] [place] [address] Thea Charlton, LEAD DATA ARCHITECT Social History Tobacco Use Types Packs/Day Years [...] ? DIAMOND GAMING ? Accession #: ? [id number] : ? 1945 (Age: 54) ??F ?Collect Date: ? 12/18/1999 Location: ?Receive Date: ? 12/18/1999 Provider: ?THEA CHARLTON NP Copy to: ?THEA CHARLTON NP ? Specimen/Source: ?Pap Smear (One Slide) Last Menstrual Period: ? GYNECOLOGIC ??CYTOPATHOLOGY ??REPORT Name: DIAMOND GAMING ? FA : 1945 ?? 54Y F ?Client ID: [id number] SS#: [id number] ? Clinician: TEMITOPE CHARLTON NP ?? Location: [facility] ??Copy to: ?? Specimen: ?Pap Smear [...] [place], SCT(ASCP) ? Report Date: ?? 12/21/1999 WhoWantsMe Archived Tests - Final Diagnosis Text Field: Clinical History : ? Document reviewed and electronically signed by: ? Conversion ? Report Date: ??12/21/1999 00:00 End of Report [facility] KO 12/18/1999 8:33 EST 12/18/1999 8:34 EST Thea Charlton LEAD DATA ARCHITECT PATHOLOGY ORDERABLES [facility] KO [address] [place] [address] documented in this encounter Visit Diagnoses Not on filedocumented in this encounter
--- OUTSIDE RECORDS SUMMARY | 2024-05-21 06:14 | XMS_ITS | Encounter Summary ---
[place] [address] Care Team Providers Care Loader Operator Name Role Phone Mariluz Watts MD Primary Care Provider [phone] Reason for Visit * Reason Onset Date Comments Medication Refill 08/16/2011 Encounter Details Date Type Department Care Team (Late st Contact Info) Description 08/16/2011 Refill [place] [address] Abrahan Merlos MD [facility] DR HEMATOLOGY/[place] [address] Social History Tobacco Use Types Packs/Day Years [...] Nhi Chadwick APRN. Patient changing pharmacy to [facility]. Patient requesting medication be mailed to to her home address. [facility] are aware. documented in this encounter Plan of Treatment Upcoming Encounters Date Type Department Care Team (Late st Contact Info) Description 11/16/2024 1:00 PM EST Office [place] [phone] Paula Harris PA [facility] [place] [place] [address] 01/26/2025 9:50 AM EDT Appointment Mammography/DXA at [place] [phone] Joan Deutsch APRN [facility] [place] [address] 01/26/2025 10:50 AM EDT Office [place] [address] Joan Deutsch APRN [facility] [place] [address] documented as of this encounter Visit Diagnoses Not on filedocumented in this encounter Care Teams Loader Operator Relationship Specialty Start Date End Date Mariluz Watts MD [address] [place] [address] [address] [place] [address] PCP - General 08/22/10 documented as of this encounter
--- OUTSIDE RECORDS SUMMARY | 2024-05-21 06:14 | XMS_ITS | Encounter Summary ---
Author Organization [facility] [place] [address] Care Team Providers Care Delivery Table Operator Name Role Phone Mariluz Watts MD Primary Care Provider [phone] Encounter Details Date Type Department Care Team (Late st Contact Info) Description 04/04/2010 Orders [place] [address] Gardenia Marquez MD [facility] [place] [address] Social History Tobacco Use Types Packs/Day Years Used Date Smoking Tobacco: Never Assessed [facility] Inpatient Questions Answer Date Recorded Does Anyone [...] PM EST Office Visit General Surgery at [place] [phone] Paula Harris PA [facility] [place] [address] 01/26/2025 9:50 AM EDT Appointment Mammography/DXA at [place] [phone] Joan Deutsch, [facility] [place] [address] 01/26/2025 10:50 AM EDT Office Visit General Surgery at [place] [phone] Jona Deutsch, SHOES SALESPERSON [facility] [place] [address] documented as of this encounter Procedures Procedure Name Priority Date/Time Associated Diagnosis Comments SURGICAL PATHOLOGY REPORT Routine 04/04/2010 8:56 AM EDT documented in this encounter Results * Surgical Pathology Report (04/04/2010 8:56 AM EDT) Surgical Pathology Report [id number] ? Location: [facility] The signing pathologist has (i) examined the [...] in rendering the final pathologic diagnosis. [facility] 04/04/2010 8:56 AM EDT Gardenia Marquez MD PATHOLOGY/CYTOLOGY ORDERABLES Performing Organization Address City/State/[facility] Co de Phone Number [facility] documented in this encounter Visit Diagnoses Not on filedocumented in this encounter Care Teams Delivery Table Operator Relationship Specialty Start Date End Date Mariluz Watts MD [address] [place] [address] PCP - General 08/22/10 documented as of this encounter
--- OUTSIDE RECORDS SUMMARY | 2024-05-21 06:14 | XMS_ITS | Encounter Summary ---
Author Organization [facility] [place] [address] Care Team Providers Care Tread Booker Name Role Phone Mariluz Watts MD Primary Care Provider [phone] Encounter Details Date Type Department Care Team (Late Contact Info) Description 03/06/2005 Orders Only Orthopaedics at [facility] [address] [place] [address] Kian Ervin MD [address] [place] [address] Social History Tobacco Use Types Packs/Day Years [...] PM EST Office [place] [phone] Paula Harris PA [facility] [place] [address] 01/26/2025 9:50 AM EDT Appointment Mammography/[place] [phone] Joan Deutsch, GE [facility] [place] [address] 01/26/2025 10:50 AM EDT Office [place] [phone] Joan Deutsch, GE [facility] [place] [address] documented as of this encounter Procedures Procedure Name Priority Date/Time Associated Diagnosis Comments SURGICAL PATHOLOGY REPORT Routine 03/06/2005 1:39 PM EDT documented in this encounter Results * Surgical Pathology Report (03/06/2005 1:39 PM EDT) Surgical Pathology Report [id number] ? Location: [facility]; 0304; B The signing pathologist has (i) [...] on filedocumented in this encounter Care Teams Tread Booker Relationship Specialty Start Date End Date Mariluz Watts MD [address] [place] [address] PCP - General 08/22/10 documented as of this encounter
--- OUTSIDE RECORDS SUMMARY | 2024-05-21 06:14 | XMS_ITS | Encounter Summary ---
Author Organization [facility] Address [address] [place] [address] Care Team Providers Care District Manager Name Role Phone Mariluz Watts MD Primary Care Provider [phone] Encounter Details Date Type Department Care Team ([facility] st Contact Info) Description 01/17/2022 Lab Requisition [facility] Pathology & Laboratory Medicine - [address] [address] Outr Resulting Lab, Provider Social History Tobacco [...] Lab MICROBIOLOGY - GENERAL ORDERABLES [facility] [address] [place] [address] * COVID-19 TESTING (01/16/2022 20:11 EDT) COVID-19 rt-PCR Result Negative Negative 01/18/2022 12:27 EDT [facility] Comment: This test has not [...] was performed using the shanelle SARS-CoV-2 assay ([employer] on the Shanelle 6800 System Performing Lab Shanelle 6800 [facility] Lab 01/18/2022 12:27 EDT [facility] Swab 01/16/2022 20:1 1 EDT 01/17/2022 20:09 EDT Provider Outr Resulting Lab MICROBIOLOGY - GENERAL ORDERABLES [facility] [address] [place] [address] documented in this encounter Visit Diagnoses Not on filedocumented in this encounter Care Teams District Manager Relationship Specialty Start Date End Date Mariluz Watts MD [address] [place] [phone] PCP - General Family Medicine - Primary Care 12/26/22 documented as of this encounter
--- OUTSIDE RECORDS SUMMARY | 2024-05-21 06:14 | XMS_ITS | Encounter Summary ---
[place] [address] Care Team Providers Care Copy Worker Name Role Phone Mariluz Watts MD Primary Care Provider [phone] Reason for Visit * Reason Comments Follow-up Encounter Details Date Type Department Care Team (Latest Contact Info) Description 04/06/2011 1:37 PM EDT - 04/06/2011 11:59 PM EDT Hospital Encounter Hematology [place] [address] Abrahan Merlos MD [facility] HEMATOLOGY/[place] [address] Breast cancer, stage 2 Discharge Disposition: Home [...] Take 500 mg by mouth daily. 09/04/2011 Ikoezje-Bmwsfzdnu-Zxhj [id number] mg Tab Take 3 tablets by [...] PM EST Office Visit General Surgery at [place] [phone] Paula Harris PA [facility] [place] [address] 01/26/2025 9:50 AM EDT Appointment Mammography/DXA at [place] [phone] Joan Deutsch APRN [facility] [place] [address] 01/26/2025 10:50 AM EDT Office Visit General Surgery at [place] [phone] Joan Deutsch APRN [facility] [place] [address] documented as of this encounter Visit Diagnoses Diagnosis Breast cancer, stage 2 Malignant neoplasm of breast (female), unspecified site documented in this encounter Care Teams Copy Worker Relationship Specialty Start Date End Date Mariluz Watts MD [address] [place] [address] PCP - General 08/22/10 documented as of this encounter
--- OUTSIDE RECORDS SUMMARY | 2024-05-21 06:14 | XMS_ITS | Encounter Summary ---
Author Organization [facility] [place] [address] Care Team Providers Care Deep Fryer Assembler Name Role Phone Mariluz Watts MD Primary Care Provider [phone] Reason for Visit * Reason Comments Follow Up Surgery Encounter Details Date Type Department Care Team (Late st Contact Info) Description 04/16/2011 3:45 PM EDT [place] [address] Harini Muhammad, [facility] [place] [address] Other specified aftercare following surgery (Primary Dx) [...] - 04/16/2011 3:55 PM EDT Welcome to [email or web address], your secure online access to your electronic medical record at [facility]. Using [email or web address] you will be able to send messages to your providers, view your test results, renew prescriptions, schedule appointments, and much more. Follow these instructions to enter your personal [email or web address] account for the first time: 1. Start your internet browser. Go to [email or web address] and click on the [email or web address] link. 2. Click SIGN UP NOW to go to the NEW MEMBER SIGN UP page. 3. Enter your [email or web address] Access Code exactly as it appears below. (You will not need this access code after you have completed the sign-up process.) ?? Your [email or web address] Access Code: [email or web address] ?? Expires: 05/18/11 04:20 PM ?? IMPORTANT: This Access Code will on the above mentioned date. If you do not sign up before this date, you will need to request a new Access Code number. 4. Enter your Date of (mm/dd/yyyy) and zip code click SUBMIT to go to the next page. 5. Create a [email or web address] identification (ID). This will be your [email or web address] login ID and cannot be changed, so [...] know when new information is available in [email or web address]. 9. Click SIGN UP to complete the process. You can now view your electronic medical record. If you have any questions about [email or web address] or your Access Code, please call for [place], for [place] or for [place]. If you need technical support, please e-mail [email or web address] (formerly [email or web address]. Remember, Piqqual-H is NOT for urgent needs! Always dial [...] PM EST Office Visit General Surgery at [place] [phone] Paula Harris PA [facility] [place] [address] 01/26/2025 9:50 AM EDT Appointment Mammography[place] [address] Joan Deutsch CABLE TELEVISION INSTALLER [facility] [place] [address] 01/26/2025 10:50 AM EDT Office [place] [phone] Joan Deutsch APRN [facility] [place] [address] documented as of this encounter Visit Diagnoses Diagnosis Other specified aftercare following surgery- Primary documented in this encounter Care Teams Deep Fryer Assembler Relationship Specialty Start Date End Date Mariluz Watts MD [address] [facility] [address] [place] [address] PCP - General 08/22/10 documented as of this encounter
--- OUTSIDE RECORDS SUMMARY | 2024-05-21 06:14 | XMS_ITS | Encounter Summary ---
Author Organization [facility] Address [address] [place] [address] Care Team Providers Care Roping Tender Name Role Phone Unavailable Primary Care Provider Unavailabl e Encounter Details Date Type Department Care Team ([facility] st Contact Info) Description 12/06/2008 Before PRISM Converted Visit (Maple) [facility] - Maple conversion [address] [place] [address] Mariluz Watts MD [address] [place] [phone] Social History Tobacco Use Types Packs/Day Years [...] GENE RAL ORDERABLES [facility] [address] [place] [address] * CYTOPATHOLOGY (12/06/2008 0:00 EDT) Pathology Report: CYTOPATHOLOGY REPORT ? Reports generated via electronic interface contain original data; ? however they are lacking the format of the original report. ? Caution should be taken when reading/interpreti ng unformatted reports. ? Name: ? DIAMOND GAMING ? Accession #: ? [id number] ? : ? 1945 (Age: 62) ??F ?Collect Date: ? 12/06/2008 ? Location: ? [facility] ? Receive Date: ? 12/07/2008 ? Provider: ?MARILUZ M DOBBERTIN MD ? Copy to: ? Specimen/Source: ?Pap Test, Endocervix, ThinPrep Imaging System with ? manual evaluation ? 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 BANKING REPRESENTATIVE ? Other: ? HPVDX - HPV testing [...] PATHOLOGY ORDERABLE S [facility] [address] [place] [address] documented in this encounter Visit Diagnoses Not on filedocumented in this encounter
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
--- OUTSIDE RECORDS SUMMARY | 2024-05-21 06:14 | XMS_ITS | Encounter Summary ---
Author Organization [facility] [place] [address] Care Team Providers Care Parts Puller Name Role Phone Mariluz Watts MD Primary Care Provider Encounter Details Date Type Department Care Team (Late st Contact Info) Description 01/27/2007 Orders [place] [address] Arcenio Carrion MD [facility] [place] [address] Social History Tobacco Use Types Packs/Day Years Used Date Smoking Tobacco: Never Assessed [facility] Inpatient Questions Answer Date Recorded Does [...] PM EST Office Visit General Surgery at [place] [phone] Paula Harris PA [facility] [place] [address] 01/26/2025 9:50 AM EDT Appointment Mammography/DXA at [place] [phone] Joan Deutsch, [facility] [place] [address] 01/26/2025 10:50 AM EDT Office Visit General Surgery at [place] [phone] Joan Deutsch, SHIP YARD ELECTRICAL PERSON [facility] [place] [place] [address] documented as of this encounter Procedures Procedure Name Priority Date/Time Associated Diagnosis Comments SURGICAL PATHOLOGY REPORT Routine 01/27/2007 5:27 PM EDT documented in this encounter Results * Surgical Pathology Report (01/27/2007 5:27 PM EDT) Pathologist [facility] Surgical Pathology Report [id number] ? Location: The signing pathologist has (i) [...] report in rendering the final pathologic diagnosis. [facility] 01/27/2007 5:27 PM EDT Arcenio Carrion MD PATHOLOGY/CYTOLOGY O RDERABLES Performing Organization Address City/State/[facility] Co de Phone Number [facility] documented in this encounter Visit Diagnoses Not on filedocumented in this encounter Care Teams Parts Puller Relationship Specialty Start Date End Date Mariluz Watts MD [address] [place] [address] [address] [facility] [address] [place] [address] PCP - General 08/22/10 documented as of this encounter
--- OUTSIDE RECORDS SUMMARY | 2024-05-21 06:14 | XMS_ITS | Encounter Summary ---
Author Organization [facility] Address [address] [place] [address] Care Team Providers Care Travel Cota Name Role Phone Unavailable Primary Care Provider Unavailabl e Encounter Details Date Type Department Care Team ([facility] st Contact Info) Description 12/25/2012 Results Only [facility] - [facility] ([facility] [place]) [address] [place], [place] [address] Mariluz Watts MD [facility] [address] [place] [phone] Social History Tobacco Use Types Packs/Day Years [...] LESA DIAMOND Mauri ? Accession #: ? [id number] ? : ? 1945 (Age: 67) ??F [...] types 16,18,31,33,35, 39,45,51,52,56,58, 59,66, and 68 by vending stand supervisor mediated amplification. Comments Document reviewed and electronically signed by: ? System Interface ? Report date: 01/02/2013 By the signature above, the attending physician certifies that he/she has personally conducted a gross and/or microscopic examination of the described specimens and rendered or confirmed the above diagnosis. End of Report [facility] 12/25/2012 12/26/2012 Mariluz Watts MD PATHOLOGY ORDERABLE S [facility] [address] [place] [address] documented in this encounter Visit Diagnoses Not on filedocumented in this encounter
--- OUTSIDE RECORDS SUMMARY | 2024-05-21 06:14 | XMS_ITS | Encounter Summary ---
Author Organization [facility] [place] [address] Care Team Providers Care Contract Programmer Name Role Phone Mariluz Watts MD Primary Care Provider [phone] Encounter Details Date Type Department Care Team (Late st Contact Info) Description 03/24/2010 Orders [place] [address] Gardenia Marquez MD [facility] [place] [address] Social History Tobacco Use Types Packs/Day Years Used Date Smoking Tobacco: Never Assessed [facility] Inpatient Questions Answer Date Recorded [...] PM EST Office [place] [phone] Paula Harris PA [facility] [place] [address] 01/26/2025 9:50 AM EDT Appointment Mammography/[place] [address] Joan Deutsch, CLIENT EXPERIENCE MANAGER [facility] [place] [address] 01/26/2025 10:50 AM EDT Office [place] [phone] Joan Deutsch, CLIENT EXPERIENCE MANAGER [facility] [place] [address] documented as of this encounter Procedures Procedure Name Priority Date/Time Associated Diagnosis Comments SURGICAL PATHOLOGY REPORT Routine 03/24/2010 2:44 PM EDT documented in this encounter Results * Surgical Pathology Report (03/24/2010 2:44 PM EDT) Pathologist [facility] Surgical Pathology Report [id number] ? Location: [facility]; 0206; A The signing pathologist has (i) [...] FISH. ??Direct analysis was performed using the Spin Transfer Technologiesysion Kit. ??Slide adequacy and signal enumeration were [...] Clinical Information kSpecimen Submitted: A - Right [place] node, Right Axilla B - Left Breast [...] 4.0 x 0.8 x 0.8 cm. Sections/Processing: ??Caregiver Services Home sections are submitted as follows: ?(1) red margin; (2-3) teleservices representative section, slice VII, including deep margin [...] of interspersed, castillo- white breast tissue. Sections/Processing: ??Caregiver Services Home sections are submitted with green ink ?markings in (1-5) and foci of breast tissue and ?adipose in (6-8). ??(R8) ??aje/PPS Microscopic Description Slides reviewed, microscopic description not recorded. Diagnosis Specimen (s): ??A - Right Bexar node ? C - Right Partial Mastectomy ? E - Right Breast Cranial Margin ? 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 Tubular Differentiation: ?? [...] nodes: ? 2 ??(Specimen A - Right Bexar node) ?? No. positive for carcinoma: ??1 ??(H&E) ?? No. with IHC (+) cells only: 0 ??(cells not seen by H&E, see Note*) ?? No. negative for carcinoma: ??1 ??(both H&E and IHC) ?For positive nodes: ?Largest kristi deposit ?? 0.2 cm ?Extranodal extension ?Absent Estrogen/Progestin receptors: ?? Performed on blocks C2 and C11 ?? ER immunoreactivity: ? Positive (see Diagnostic hanna*) ?? ND immunoreactivity: ? 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 Fibrocystic disease [...] on filedocumented in this encounter Care Teams Contract Programmer Relationship Specialty Start Date End Date Mariluz Watts MD [address] [place] [address] 1 [place] [address] PCP - General 08/22/10 documented as of this encounter
--- OUTSIDE RECORDS SUMMARY | 2024-05-21 06:14 | XMS_ITS | Encounter Summary ---
Author Organization [facility] [place] [address] Care Team Providers Care Roll Handler Name Role Phone Mariluz Watts MD Primary Care Provider [phone] Encounter Details Date Type Department Care Team (Late st Contact Info) Description 10/26/2010 11:00 AM EST Follow-Up [place] [address] Social History Tobacco Use Types Packs/Day Years [...] PM [place] Office [place] [address] Paula Harris PA [facility] [place] [address] 01/26/2025 9:50 AM EDT Appointment Mammography/[place] [address] Joan Deutsch, GE [facility] [place] [address] 01/26/2025 10:50 AM EDT Office [place] [address] Joan Deutsch MOLDING PRESS OPERATOR [facility] [place] [address] documented as of this encounter Visit Diagnoses Not on filedocumented in this encounter Care Teams Roll Handler Relationship Specialty Start Date End Date Mariluz Watts MD [address] [place] [address] PCP - General 08/22/10 documented as of this encounter
--- OUTSIDE RECORDS SUMMARY | 2024-05-21 06:14 | XMS_ITS | Encounter Summary ---
[place] [address] Care Team Providers Care Fluxer Name Role Phone Mariluz Watts MD Primary Care Provider [phone] Encounter Details Date Type Department Care Team (Latest Contact Info) Description 04/06/2011 1:36 PM EDT - 04/06/2011 11:59 PM EDT [place] [address] CLINIC, DR KATARINA Merlos, Abrahan Chavarria MD [facility] HEMATOLOGY/[place] [address] Discharge Disposition: Home Social History Tobacco Use [...] Date End Date anastrozole (ARIMIDEX) 1 mg tabletIndications:[place] st cancer, stage 2 Take 1 tablet by mouth daily. 90 tablet 3 04/06/2011 08/14/2011 Triamcinolone Acetonide-L.S.B. 0.1 % CreaIndications:Dermat itis Apply 1 applicator topically 2 times daily for 7 days. 1 Tube 0 04/03/2011 04/10/2011 ascorbic acid (VITAMIN C) 500 mg tablet Take 500 mg by mouth daily. 09/04/2011 Tbioclh-Vxysycjuo-Ppct 333-133-5 mg Tab Take 3 tablets by [...] PM EST Office [place] [address] Paula Harris PA [facility] [place] [address] 01/26/2025 9:50 AM EDT Appointment Mammography[place] [phone] Joan Deutsch APRN [facility] [place] [address] 01/26/2025 10:50 AM EDT Office [place] [phone] Joan Deutsch APRN [facility] [place] [address] documented as of this encounter Procedures Procedure Name Priority Date/Time Associated Diagnosis Comments VITAMIN D, 25-HYDROXY Routine 04/06/2011 1:44 PM EDT HEPATIC FUNCTION PANEL STAT 04/06/2011 1:44 PM EDT documented in this encounter Results * HEPATIC FUNCTION PANEL (04/06/2011 1:44 PM EDT) Pathologist [facility] Protein, [...] PM EDT Abrahan Merlos MD CHEMISTRY ORDERABLES [facility] * VITAMIN D2 AND D3 25 HYDROXY (04/06/2011 1:44 PM EDT) Pathologist [facility] 25-Hydroxy D2 <4.0 ng/mL CERNER MILLENNIUM Comment: Test Performed by: [place] [address] Diaphragm Builder: Adela Gavin, Ph.D. 25-Hydroxy D3 41 ng/mL [facility] Comment: Test Performed by: [place] [address] Diaphragm Builder: Adela Gavin, Ph.D. Vitamin D Total 25 OH 41 ng/mL [facility] Comment: -- REFERENCE VALUE -- 25-HYDROXY D TOTAL (D2+D3) Optimum levels in the normal population are 25-80 Test Performed by: [facility] [place] [address] Diaphragm Builder: Adela Gavin, Ph.D. Blood specimen (specimen) 04/06/2011 1:44 PM EDT 04/06/2011 3:52 PM EDT Abrahan Merlos MD CHEMISTRY ORDERABLES Performing Organization Address City/State/[facility] Co ri Phone Number [facility] documented in this encounter Visit Diagnoses Not on filedocumented in this encounter Care Teams Fluxer Relationship Specialty Start Date End Date Mariluz Watts MD [address] [place] [address] PCP - General 08/22/10 documented as of this encounter
--- OUTSIDE RECORDS SUMMARY | 2024-05-21 06:14 | XMS_ITS | Encounter Summary ---
Author Organization [facility] Address [address] [place] [address] Care Team Providers Care Personalized Living Assistant Name Role Phone Unavailable Primary Care Provider Unavailabl e Encounter Details Date Type Department Care Team (Latest Contact Info) Description 02/21/2001 13:54 EDT Hospital Encounter [address] [address] Celia Modi, Thea Cosby, HILARIA Discharge Disposition: Auto Discharge Social History Tobacco [...] Procedure Name Priority Date/Time Associated Diagnosis Comments WA MAMMOGRAPHIC SCREEN ANDRES Routine 02/21/2001 15:07 EDT [...] IMAGING EVALUATION END OF IMPRESSION Celia Modi [facility] IM MAMMOGRAPHY ABE CARBALLO documented in this encounter Visit Diagnoses Not on filedocumented in this encounter
--- OUTSIDE RECORDS SUMMARY | 2024-05-21 06:14 | XMS_ITS | Encounter Summary ---
[place] [address] Care Team Providers Care Nurse Charge Rn Name Role Phone Mariluz Watts MD Primary Care Provider [phone] Reason for Visit * Reason Onset Date Comments Medication Refill 08/14/2011 Encounter Details Date Type Department Care Team (Late st Contact Info) Description 08/14/2011 Refill Hematology [place] [address] Gemini Felton RN Breast cancer, stage 2 [...] like the script mailed to her , [facility] are aware. Started May 28, 2010 Last seen 04/06/11 by , script generated. Patient changing pharmacy. Pended for approval and signature then e-scribed to [facility] outpatient pharmacy. * Telephone Encounter - Gemini Felton RN - 08/14/2011 12:28 PM EST Message copied by GEMINI FELTON on SatAug 14, 2011 12:28 PM ------ Message from: CASEY BAUER Created: SatAug 14, 2011 9:50 AM Gaurang Diamond is switching her pharmacy, she would like her Arimidex phoned in to the outpatient pharmacy. If you have any questions she works here @ the [employer] [facility] [employer] [id number]. documented in this encounter Plan of Treatment Upcoming Encounters Date Type Department Care Team (Late st Contact Info) Description 11/16/2024 1:00 PM EST Office Visit General Surgery at [place] [phone] Paula Harris PA [facility] [place] [address] 01/26/2025 9:50 AM EDT Appointment Mammography/[place] [phone] Joan Deutsch WRINKLE CHASER [facility] [place] [address] 01/26/2025 10:50 AM EDT Office [place] [address] Joan Deutsch APRN [facility] [place] [address] documented as of this encounter Visit Diagnoses Diagnosis Breast cancer, stage 2 Malignant neoplasm of breast (female), unspecified site documented in this encounter Care Teams Nurse Charge Rn Relationship Specialty Start Date End Date Mariluz Watts MD [address] [place] [address] PCP - General 08/22/10 documented as of this encounter
--- OUTSIDE RECORDS SUMMARY | 2024-05-21 06:14 | XMS_ITS | Encounter Summary ---
Author Organization [facility] [place] [address] Care Team Providers Care Machine Worker Name Role Phone Mariluz Watts MD Primary Care Provider [phone] Encounter Details Date Type Department Care Team (Late st Contact Info) Description 04/03/2011 Abstract [place] [address] Lindy Mata RN Social History Tobacco Use [...] PM EST Office [place] [address] Paula Harris PA [facility] [place] [address] 01/26/2025 9:50 AM EDT Appointment Mammography/[place] [address] Joan Deutsch, [facility] [place] [address] 01/26/2025 10:50 AM EDT Office Visit [place] [address] Joan Deutsch, [facility] [place] [address] documented as of this encounter Visit Diagnoses Not on filedocumented in this encounter Care Teams Machine Worker Relationship Specialty Start Date End Date Mariluz Watts MD [address] [place] [address] PCP - General 08/22/10 documented as of this encounter
--- OUTSIDE RECORDS SUMMARY | 2024-05-21 06:14 | XMS_ITS | Encounter Summary ---
Author Organization [facility] Address [address] [place] [address] Care Team Providers Care Grid Casting Machine Operator Helper Name Role Phone Unavailable Primary Care Provider Unavailabl e Encounter Details Date Type Department Care Team ([facility] st Contact Info) Description 05/02/2017 Results Only [facility] [phone] Mariluz Watts MD [address] [place] [address] Social History Tobacco Use Types [...] ? DIAMOND GAMING ? Accession #: ? [id number] ? : ? 1945 (Age: 71) ??F [...] ?? Menstrual/Pregnanc y Status: ??Post Menopausal Other: Winder Tender Clinical/Treatment Hx - None Additional clinical information: [...] types 16,18,31,33,35, 39,45,51,52,56,58, 59,66, and 68 by sql server dba developer mediated amplification. Comments Document reviewed and electronically [...] MD PATHOLOGY ORDERABLE S Performing Organization Address City/State/[facility] Co de Phone Number [facility] [address] [place] [address] documented in this encounter Visit Diagnoses Not on filedocumented in this encounter
--- OUTSIDE RECORDS SUMMARY | 2024-05-21 06:14 | XMS_ITS | Encounter Summary ---
[place] [address] Care Team Providers Care News Photographer Name Role Phone Mariluz Watts MD Primary Care Provider Encounter Details Date Type Department Care Team (Late st Contact Info) Description 01/25/2010 [place] [address] Cece Marrero MD [facility] [place] [address] Social History Tobacco Use Types Packs/Day Years [...] PM EST Office [place] [address] Paula Harris PA [facility] [place] [address] 01/26/2025 9:50 AM EDT Appointment Mammography/[place] [phone] Joan Deutsch, [facility] [place] [address] 01/26/2025 10:50 AM EDT Office [place] [address] Joan Deutsch, [facility] [place] [address] documented as of this encounter Procedures Procedure Name Priority Date/Time Associated Diagnosis Comments SURGICAL PATHOLOGY REPORT Routine 01/25/2010 11:49 AM EDT documented in this encounter Results * Surgical Pathology Report (01/25/2010 11:49 AM EDT) Surgical Pathology Report [id number] ? Location: [facility] The signing pathologist has [...] VALERIE TOPETE 01/25/2010 11:4 9 AM EDT Cece Marrero MD PATHOLOGY/CYTOLOGY Susan HUGGINS Performing Organization Address City/State/[facility] Co de Phone Number VALERIE TOPETE documented in this encounter Visit Diagnoses Not on filedocumented in this encounter Care Teams News Photographer Relationship Specialty Start Date End Date Mariluz Watts MD [address] [place] [address] PCP - General 08/22/10 documented as of this encounter
--- OUTSIDE RECORDS SUMMARY | 2024-05-21 06:14 | XMS_ITS | Encounter Summary ---
[place] [address] Care Team Providers Care Section Crews Activities Clerk Name Role Phone Mariluz Watts MD Primary Care Provider [phone] Encounter Details Date Type Department Care Team (Late st Contact Info) Description 11/01/2011 11:30 AM EST - 11/01/2011 11:59 PM [facility] Hospital [place] [address] Social History Tobacco Use Types Packs/Day Years [...] PM EST Office [place] [phone] Paula Harris PA [facility] [place] [address] 01/26/2025 9:50 AM EDT Appointment Mammography/[place] [address] Joan Deutsch CAN TOP SETTER [facility] [place] [address] 01/26/2025 10:50 AM EDT Office [place] [address] Joan Deutsch CAN TOP SETTER [facility] [place] [address] documented as of this encounter Procedures Procedure [...] on filedocumented in this encounter Care Teams Section Crews Activities Clerk Relationship Specialty Start Date End Date Mariluz Watts MD [address] [place] [address] PCP - General 08/22/10 documented as of this encounter
--- OUTSIDE RECORDS SUMMARY | 2024-05-21 06:14 | XMS_ITS | Encounter Summary ---
Author Organization [facility] Address [address] [place] [address] Care Team Providers Care Water Resources Business Segment Leader Name Role Phone Mariluz Watts MD Primary Care Provider [phone] Encounter Details Date Type Department Care Team (Late st Contact Info) Description 12/14/2022 Lab Requisition [facility] Pathology & Laboratory Medicine - [facility] [address] [place] [address] Mariluz Watts MD [address] [place] [address] [address] [place] [phone] Encounter for other general examination Social History [...] types, PCR Negative Negative 12/25/2022 15:51 EDT [facility] Comment:No E6 or E7 mRNA is detected from HPV types 16,18,31,33,35,39,45,51,52,56,58,59,66, and 68 by vamper mediated amplification. Papanicolaou smear specimen (specimen) CERVIX UTERI STRUCTURE / Unknown 12/10/2022 11:30 EDT 12/23/2022 10:39 EDT Mariluz Watts MD MICROBIOLOGY - GENE [facility] ORDERABLES [facility] [address] [place] [address] * PAP TEST (12/10/2022 11:30 EDT) Specimens A. Cervix and/or Endocervix , ThinPrep Imaging System with Manual Evaluation 12/25/2022 15:51 T [facility] Specimen Adequacy Satisfactory for Evaluation - assessment of transformation zone component not applicable ( e.g. atrophy, vaginal sample, hysterectomy) 12/25/2022 15:51 [facility] General Categorization Negative for intraepithelial lesion or malignancy 12/25/2022 15:51 [facility] Attestation . 12/25/2022 15:51 [facility] at 1551 Clinical History See below 12/26/19 23 15:51 [facility] HPV The result for the Human Papillomavirus (HPV) Detection-High Risk Types is Negative. No E6 or E7 mRNA is detected from HPV types 16,18,31,33,35,39 ,45,51,52,56,58,5 9,66, and 68 by vamper mediated amplification.Ange ting was performed on specimen [id number] and was resulted on 12/25/2022 1551 EDT by GINETTE, LAB INSTRUMENT RESULTS IN 12/25/2022 15:51 T [facility] Performing Lab [facility] 12/25/2022 15:51 [facility] Scanned Images 12/25/2022 15:51 [facility] Papanicolaou smear specimen (specimen) CERVIX UTERI STRUCTURE / Unknown 12/10/2022 11:30 EDT 12/14/2022 9:18 EDT Mariluz Watts MD PATHOLOGY ORDERABLE S [facility] [address] [place] [address] documented in this encounter Visit Diagnoses Diagnosis Encounter for other general examination documented in this encounter Care Teams Water Resources Business Segment Leader Relationship Specialty Start Date End Date Mariluz Watts MD [address] [place] [address] PCP - General Family Medicine - Primary Care 12/26/22 documented as of this encounter
--- OUTSIDE RECORDS SUMMARY | 2024-05-21 06:14 | XMS_ITS | Encounter Summary ---
[place] [address] Care Team Providers Care Training Officer Name Role Phone Mariluz Watts MD Primary Care Provider Encounter Details Date Type Department Care Team (Latest Contact Info) Description 03/27/2011 7:52 AM EDT - 03/27/2011 3:15 PM EDT Hospital Encounter [place] [address] Ruben Chaudhari MD [address] [place] [address] Breast cancer, stage 2 Discharge Disposition: Home [...] Operative Note Patient Name: Diamond Gaming : [id number] MR#: [id number] Case Date: 03/27/2011 Surgeon: Surgeon(s) and Role: [...] PM EST Office Visit General Surgery at [place] [phone] Paula Harris PA [facility] [place] [address] 01/26/2025 9:50 AM EDT Appointment Mammography/[place] [address] Joan Deutsch APRN [facility] [place] [address] 01/26/2025 10:50 AM EDT Office Visit General Surgery at [place] [phone] Joan Deutsch APRN [facility] [place] [address] documented as of this encounter Procedures Procedure [...] Routine documented in this encounter Care Teams Training Officer Relationship Specialty Start Date End Date Mariluz Watts MD [address] [place] [address] PCP - General 08/22/10 documented as of this encounter
--- OUTSIDE RECORDS SUMMARY | 2024-05-21 06:14 | XMS_ITS | Clinical Summary ---
Author Organization [facility] Address [address] [place] [address] Care Team Providers Care Concrete Journeyman Name Role Phone Mariluz Watts MD Primary Care Provider [phone] Social History Tobacco Use Types Packs/Day Years [...] COVID-19 Vaccine ( season) 2023 Care Teams Concrete Journeyman Relationship Specialty Start Date End Date Mariluz Watts MD [address] [place] [address] PCP - General Family Medicine - Primary Care 12/26/22
--- OUTSIDE RECORDS SUMMARY | 2024-05-21 06:14 | XMS_ITS | Encounter Summary ---
Author Organization [facility] [place] [address] Care Team Providers Care Systems Analysis Manager Name Role Phone Mariluz Watts MD Primary Care Provider [phone] Encounter Details Date Type Department Care Team (Late st Contact Info) Description 04/13/2011 Abstract [place] [address] Zenaida Dixon, RN Social History Tobacco Use [...] PM EST Office [place] [address] Paula Harris PA [facility] [place] [address] 01/26/2025 9:50 AM EDT Appointment Mammography/[place] [phone] Joan Deutsch [facility] [place] [address] 01/26/2025 10:50 AM EDT Office [place] [address] Joan Deutsch, [facility] [address] documented as of this encounter Visit Diagnoses Not on filedocumented in this encounter Care Teams Systems Analysis Manager Relationship Specialty Start Date End Date Mariluz Watts MD [address] [place] [address] [address] [place] [address] PCP - General 08/22/10 documented as of this encounter
--- OUTSIDE RECORDS SUMMARY | 2024-05-21 06:14 | XMS_ITS | Encounter Summary ---
Author Organization [facility] Address [address] [place] [address] Care Team Providers Care Television Program Director Name Role Phone Unavailable Primary Care Provider Unavailabl e Encounter Details Date Type Department Care Team ([facility] st Contact Info) Description 11/25/2006 Results Only [facility] - [facility] [address] [place] [address] Mariluz Watts MD [address] [place] [address] [address] [place] [address] Social History Tobacco Use Types [...] ? DIAMOND MCFADDEN ? Accession #: ? [id number] : ? 1945 (Age: 60) ??F ?Collect Date: ? 11/25/2006 Location: ? [facility] ? Receive Date: ? 11/27/2006 Provider: ?MARILUZ WATTS MD Copy to: ? Specimen/Source: ?ThinPrep Pap Test, Endocervix, processed on [employer] ThinPrep Imaging System, with manual evaluation Last [...] MD PATHOLOGY ORDERABLE S DHRUV KO [address] [place] [address] documented in this encounter Visit Diagnoses Not on filedocumented in this encounter
--- OUTSIDE RECORDS SUMMARY | 2024-05-21 06:14 | XMS_ITS | Encounter Summary ---
Author Organization [facility] [place] [address] Care Team Providers Care Campground Attendant Name Role Phone Mariluz Watts MD Primary Care Provider [phone] Reason for Visit * Reason Comments Follow-up Encounter Details Date Type Department Care Team (Late st Contact Info) Description 11/01/2011 3:00 PM EST Follow-Up Hematology [place] [address] CLINIC, DR KATARINA Merlos, Abrahan Chavarria MD [facility] DR HEMATOLOGY/[place] [address] Breast cancer, stage 2 (Primary Dx) Discharge [...] level at that time. Abrahan Merlos MD asbestos wire finisher in Hematology-Oncology documented in this encounter Miscellaneous Notes * Communication Body - Abrahan Merlos MD - 11/01/2011 3:48 PM EST documented in this encounter Plan of Treatment Upcoming Encounters Date Type Department Care Team (Late st Contact Info) Description 11/16/2024 1:00 PM EST Office Visit General Surgery at [place] [phone] Paula Harris PA [facility] [place] [place] [address] 01/26/2025 9:50 AM EDT Appointment Mammography/[place] [address] Joan Deutsch ASSISTANT FLOOR COVERING PRINTER [facility] [place] [address] 01/26/2025 10:50 AM EDT Office Visit General Surgery at [place] [phone] Joan Deutsch ASSISTANT FLOOR COVERING PRINTER [facility] [place] [address] documented as of this encounter Results * VIT D Total 25 Hydroxy (05/02/2012 1:09 PM EDT) Vitamin D Total 25 OH 41 30 - 100 ng/mL [facility] Comment: Deficient <10 ng/mL Insufficient 10 [...] Hydroxy assays are being analyzed by the [facility] Chemistry Laboratory. ??There is NO CHANGE in units. ??Please contact the chemistry laboratory at [phone] with questions. Blood specimen (specimen) 05/02/2012 1:09 PM EDT 05/02/2012 1:11 PM EDT Narrative Resulting Agency Comment Spec In Lab Abrahan Merlos MD CHEMISTRY ORDERABLES [facility] * Hepatic Function Panel (05/02/2012 1:09 PM EDT) Pathologist [facility] Protein, Total 6.8 6.4 - 8.3 gm/dL [...] site documented in this encounter Care Teams Campground Attendant Relationship Specialty Start Date End Date Mariluz Watts MD [address] [place] [address] PCP - General 08/22/10 documented as of this encounter
--- OUTSIDE RECORDS SUMMARY | 2024-05-21 06:14 | XMS_ITS | Encounter Summary ---
Author Organization [facility] Address [address] [place] [address] Care Team Providers Care Broach Grinder Name Role Phone Mariluz Watts MD Primary Care Provider [phone] Encounter Details Date Type Department Care Team ([facility] st Contact Info) Description 05/12/2021 Lab Requisition [facility] Pathology & Laboratory Medicine - [address] [address] Outr Resulting Lab, Provider Social History Tobacco [...] Neg and Giardia Antigen Neg 11:50 EDT [facility] Feces SPECIMEN FROM RECTUM / Unknown 05/11/2021 19:50 EDT 05/12/2021 16:43 EDT Provider Outr Resulting Lab MICROBIOLOGY - GENERAL ORDERABLES [facility] [address] [place] [address] documented in this encounter Visit Diagnoses Not on filedocumented in this encounter Care Teams Broach Grinder Relationship Specialty Start Date End Date Mariluz Watts MD [address] [place] [address] PCP - General Family Medicine - Primary Care 12/26/22 documented as of this encounter
--- OUTSIDE RECORDS SUMMARY | 2024-05-21 06:14 | XMS_ITS | Encounter Summary ---
[place] [address] Care Team Providers Care Data Analyst Report Writer Name Role Phone Mariluz Watts MD Primary Care Provider [phone] Reason for Visit * Reason Comments Radiation Follow-up Right Breast Cancer Encounter Details Date Type Department Care Team (Latest Contact Info) Description 09/04/2011 1:33 PM EST - 09/04/2011 11:59 PM [facility] Hospital En[place] [address] Stephanie Fernandez, [address] RADIATION ONCOLOGY [place], [place] [address] Breast cancer, stage 2 Discharge Disposition: Home [...] this encounter Progress Notes * Stephanie Fernandez, ENGINEERING TECHNICIAN - 09/04/2011 2:18 PM EST Subjective: Patient ID: Diamond Gaming is a 65 y.o. female who was treated with radiation therapy [id number] right breast cancer. She completed radiation therapy on 05/15/2010 and is in clinic today for scheduledfollow up. HPI Right breast IDC with lobular features, intermediate grade, 1.5cm and additional lesion 0.8cm, +ALI, -PNI, tx lumpectomy and bilateral breast reductions, there is a close deep margin that was re-excised, 1 of 2 sentinel LNs involved with 0.2cm of disease and no GENA. ER+, GA+, sps4rcs pending. Note-left breast excisional biopsy showed a papilloma. DIAGNOSIS: breast cancer STAGE: Right- pT1c pN1 pMX PATHOLOGY: 03/24/10- Left breast excisional biopsy, right breast partial mastectomy and sentinel lymphadenectomy with bilateral breast reductions. RIGHT BREAST SPECIMEN FINDING: ---Pathologic Diagnosis--- Specimen (s): A - Right [place] node C - Right Partial Mastectomy E - Right Breast Cranial Margin F - Right Breast inferior medial margin Lesions 1&2: Histologic Type: Invasive ductal carcinoma with lobular features Tumor Grade: Intermediate Bmgwwq-Tzpsa-Cpkfedieoj Score: 7 Tubular Differentiation: 3 Mitotic Rate: [...] sentinel nodes: 2 (Specimen A - Right [place] node) No. positive for carcinoma: 1 (H&E) [...] Diagnosis: Benign sclerosing papilloma Prior Bx's correlation: [id number], part B Other findings: Fibrocystic disease with [...] PM EST Office [place] [address] Paula Harris PA [facility] [place] [address] 01/26/2025 9:50 AM EDT Appointment Mammography/[place] [address] Joan Deutsch, [facility] [place] [address] 01/26/2025 10:50 AM EDT Office [place] [address] Joan Deutsch, ENGINEERING TECHNICIAN [facility] [place] [address] documented as of this encounter Visit Diagnoses Diagnosis Breast cancer, stage 2 Malignant neoplasm of breast (female), unspecified site documented in this encounter Care Teams Data Analyst Report Writer Relationship Specialty Start Date End Date Mariluz Watts MD [address] [place] [address] PCP - General 08/22/10 documented as of this encounter
--- OUTSIDE RECORDS SUMMARY | 2024-05-21 06:14 | XMS_ITS | Encounter Summary ---
Author Organization [facility] Address [address] [place] [address] Care Team Providers Care Mft Name Role Phone Unavailable Primary Care Provider Unavailabl e Encounter Details Date Type Department Care Team (Latest Contact Info) Description 03/12/2001 7:45 EDT - 03/12/2001 11:59 EDT Hospital Encounter [facility] - [address] [address] Celia Modi CFNP Discharge Disposition: Auto Discharge [...] OVERALL ASSESSMENT - NEGATIVE END OF IMPRESSION eClia GOLDSMITH IMG MAMMOGRAPHY JEFFE HARIS documented in this encounter Visit Diagnoses Not on filedocumented in this encounter
--- OUTSIDE RECORDS SUMMARY | 2024-05-21 06:14 | XMS_ITS | Encounter Summary ---
[place] [address] Care Team Providers Care Information Technology Internship Name Role Phone Mariluz Watts MD Primary Care Provider [phone] Encounter Details Date Type Department Care Team (Late st Contact Info) Description 03/27/2011 9:42 AM EDT - 03/27/2011 11:10 AM EDT Surgery [place] [address] Ruben Chaudhari MD [address] [place] [address] EXC BENIGN LESION; INDRA >4.0CM, TRUNK (WRVU [...] 1 % gel 10/26/2010 07/25/2012 DARCY SANCHEZ, [facility] 10/26/2010 012 multivitamin (THERAGRAN) tablet 10/26/2010 07/25/2012 [...] Operative Note Patient Name: Diamond Gaming : [id number] MR#: [id number] Case Date: 03/27/2011 Surgeon: Surgeon(s) and Role: [...] PM EST Office [place] [address] Paula Harris PA [facility] [place] [place] [address] 01/26/2025 9:50 AM EDT Appointment Mammography/[place] [address] Joan Deutsch STOCK CRANE OPERATOR [facility] [place] [place] [address] 01/26/2025 10:50 AM EDT Office [place] [address] Joan Deutsch APRN [facility] [place] [address] documented as of this encounter Procedures Procedure [...] Routine documented in this encounter Care Teams Information Technology Internship Relationship Specialty Start Date End Date Mariluz Watts MD [address] [place], [place] [address]Y [facility] [address] [place] [address] PCP - General 08/22/10 documented as of this encounter
--- OUTSIDE RECORDS SUMMARY | 2024-05-21 06:14 | XMS_ITS | Encounter Summary ---
[place] [address] Care Team Providers Care Firebrick Layer Helper Name Role Phone Mariluz Watts MD Primary Care Provider [phone] Encounter Details Date Type Department Care Team (Late st Contact Info) Description 03/27/2011 10:49 AM EDT Anesthesia Event [place] [address] Chente Beck MD [facility] [place] [address] Anesthesia Record Procedure Summary Procedure Name Responsible [...] >3 FB Neck ROM: full Dental Comment: [place] dentition Pulmonary - negative ROS breath sounds clear to auscultation (-) asthma Cardiovascular - negative ROS (-) hypertension, past DE and murmur Rhythm: regular Rate: normal Neuro/Psych [...] PM EST Office [place] [address] Paula Harris PA [facility] [place] [address] 01/26/2025 9:50 AM EDT Appointment Mammography/[place] [address] Joan Deutsch APRN [facility] [place] [place] [address] 01/26/2025 10:50 AM EDT Office [place] [address] Joan Deutsch APRN [facility] [place] [place] [address] documented as of this encounter Visit Diagnoses Not on filedocumented in this encounter Care Teams Firebrick Layer Helper Relationship Specialty Start Date End Date Mariluz Watts MD [address] [place] [address] 1 [place] [address] PCP - General 08/22/10 documented as of this encounter
--- OUTSIDE RECORDS SUMMARY | 2024-05-21 06:14 | XMS_ITS | Encounter Summary ---
[place] [address] Care Team Providers Care Mechanic Welder Name Role Phone Mariluz Watts MD Primary Care Provider [phone] Encounter Details Date Type Department Care Team (Late st Contact Info) Description 02/09/2010 [place] [address] Bella Dowling MD [facility] [place] [address] Social History Tobacco Use Types Packs/Day Years [...] PM EST Office Visit General Surgery at [place] [phone] Paula Harris PA [facility] [place] [address] 01/26/2025 9:50 AM EDT Appointment Mammography/DXA at [place] [phone] Joan Deutsch, FLOOR CLERK [facility] [place] [place] [address] 01/26/2025 10:50 AM EDT Office Visit General Surgery at [place] [phone] Joan Deutsch, GE [facility] [place] [place] [address] documented as of this encounter Procedures Procedure Name Priority Date/Time Associated Diagnosis Comments SURGICAL PATHOLOGY REPORT Routine 02/09/2010 11:33 AM EDT documented in this encounter Results * Surgical Pathology Report (02/09/2010 11:33 AM EDT) Surgical Pathology Report [id number] ? Location: 3K The signing pathologist has [...] diagnosis. Comment Deeper levels on A2 examined. [facility] 02/09/2010 11:3 3 AM EDT Bella Dowling MD PATHOLOGY/CYTOLOGY O RDERABLES [facility] documented in this encounter Visit Diagnoses Not on filedocumented in this encounter Care Teams Mechanic Welder Relationship Specialty Start Date End Date Mariluz Watts MD [address] [place] [address] PCP - General 08/22/10 documented as of this encounter
--- OUTSIDE RECORDS SUMMARY | 2024-05-21 06:14 | XMS_ITS | Encounter Summary ---
[place] [address] Care Team Providers Care Evaluator Name Role Phone Mariluz Watts MD Primary Care Provider [phone] Reason for Visit * Reason Onset Date Comments Results 04/09/2011 Encounter Details Date Type Department Care Team (Late st Contact Info) Description 04/09/2011 Telephone [place]ematology [place] [address] Abrahan Merlos MD [facility] DR HEMATOLOGY/[place] [address] Results Social History Tobacco Use Types Packs/Day [...] PM EST Office [place] [address] Paula Harris PA [facility] [place] [address] 01/26/2025 9:50 AM EDT Appointment Mammography/[place] [address] Joan Deutsch [facility] [place] [address] 01/26/2025 10:50 AM EDT Office [place] [address] Joan Deutsch [facility] [place] [address] documented as of this encounter Visit Diagnoses Not on filedocumented in this encounter Care Teams Evaluator Relationship Specialty Start Date End Date Mariluz Watts MD [address] [place] [address] PCP - General 08/22/10 documented as of this encounter
--- OUTSIDE RECORDS SUMMARY | 2024-05-21 06:14 | XMS_ITS | Encounter Summary ---
Author Organization [facility] [place] [address] Care Team Providers Care Substation Electrician Name Role Phone Mariluz Watts MD Primary Care Provider [phone] Encounter Details Date Type Department Care Team (Latest Contact Info) Description 10/26/2010 12:42 PM EST - 10/26/2010 11:59 PM [facility] Hospital Encounter [place]ematology [place] [address] Abrahan Merlos MD [facility] HEMATOLOGY/[place] [address] Discharge Disposition: Home Social History Tobacco Use [...] PM EST Office [place] [address] Paula Harris PA [facility] [place] [address] 01/26/2025 9:50 AM EDT Appointment Mammography/DXA at [place] [phone] Joan Deutsch STEEL SPAR OPERATOR [facility] [place] [address] 01/26/2025 10:50 AM EDT Office Visit General Surgery at [place] [phone] Joan Deustch [facility] [place] [address] documented as of this encounter Visit Diagnoses Not on filedocumented in this encounter Care Teams Substation Electrician Relationship Specialty Start Date End Date Mariluz Watts MD [address] [place] [address] PCP - General 08/22/10 documented as of this encounter
--- OUTSIDE RECORDS SUMMARY | 2024-05-21 06:14 | XMS_ITS | Encounter Summary ---
Author Organization [facility] Address [address] [place] [address] Care Team Providers Care Call Taker Name Role Phone Unavailable Primary Care Provider Unavailabl e Encounter Details Date Type Department Care Team ([facility] st Contact Info) Description 02/05/2001 Results Only [facility] - Maple conversion [address] [place] [address] Thea Charlton, PROJECT TECHNICIAN Social History Tobacco Use Types Packs/Day Years [...] ? DIAMOND GAMING ? Accession #: ? [id number] : ? 1945 (Age: 55) ??F ?Collect Date: ? 02/05/2001 Location: ? [facility] ? Receive Date: ? 02/06/2001 Provider: ?HTEA CHARLTON PROJECT TECHNICIAN Copy to: ? Specimen/Source: ?Conventional Pap Test, Cervix/Endocervix Last Menstrual Period: ? 12/22/00 ? SPECIMEN ADEQUACY ? Satisfactory for evaluation. GENERAL CATEGORIZATION ? Within Normal Limits ? Document reviewed and electronically signed by: ? Julianne Whitehead, SCT(ASCP) ? Report Date: ??02/07/2001 10:09 End of Report [facility] 02/05/2001 02/06/2001 Thea Charlton NP PATHOLOGY ORDERABLES [facility] [address] [place] [address] documented in this encounter Visit Diagnoses Not on filedocumented in this encounter
--- OUTSIDE RECORDS SUMMARY | 2024-05-21 06:14 | XMS_ITS | Encounter Summary ---
Author Organization [facility] Address [address] [place] [address] Care Team Providers Care Team Guide Name Role Phone Mariluz Watts MD Primary Care Provider [phone] Encounter Details Date Type Department Care Team ([facility] st Contact Info) Description 05/12/2021 Lab Requisition [facility] Pathology & Laboratory Medicine - [address] [address] Outr Resulting Lab, Provider Social History Tobacco [...] ova and parasites seen. 05/15/2021 14:51 EDT [facility] Feces SPECIMEN FROM RECTUM / Unknown 05/11/2021 19:50 EDT 05/12/2021 16:44 EDT Narrative [facility] - 05/15/2021 14:51 EDT (If Cryptosporidium, Cyclospora, or Microsporidium are suspected, specific tests must be requested.) Single negative specimen does not rule out the possibility of a parasitic infection. Provider Outr Resulting Lab MICROBIOLOGY - GENERAL ORDERABLES [facility] [address] [place] [address] documented in this encounter Visit Diagnoses Not on filedocumented in this encounter Care Teams Team Guide Relationship Specialty Start Date End Date Mariluz Watts MD [address] [place] [address] PCP - General Family Medicine - Primary Care 12/26/22 documented as of this encounter
--- OUTSIDE RECORDS SUMMARY | 2024-05-21 06:14 | XMS_ITS | Encounter Summary ---
[place] [address] Care Team Providers Care Sr. Merchandise Planner Name Role Phone Mariluz Watts MD Primary Care Provider [phone] Encounter Details Date Type Department Care Team (Late st Contact Info) Description 08/16/2011 Telephone Hematology [place] [address] Gemini Lawrence RN Social History Tobacco Use [...] PM EST Diamond is changing pharmacy to [facility] Outpatient [facility] and wishes medication to be mailed to her. [facility] aware of this. Script generated and pended for approval and signature on 08/14/2011. documented in this encounter Plan of Treatment Upcoming Encounters Date Type Department Care Team (Late st Contact Info) Description 11/16/2024 1:00 PM EST Office Visit General Surgery at [place] [phone] Paula Harris PA [facility] [place] [address] 01/26/2025 9:50 AM EDT Appointment Mammography/[place] [address] Joan Deutsch, [facility] [place] [address] 01/26/2025 10:50 AM EDT Office Visit General Surgery at [place] [phone] Joan Deutsch, [facility] [place] [address] documented as of this encounter Visit Diagnoses Not on filedocumented in this encounter Care Teams Sr. Merchandise Planner Relationship Specialty Start Date End Date Mariluz Watts MD [address] [place] [address] PCP - General 08/22/10 documented as of this encounter
--- OUTSIDE RECORDS SUMMARY | 2024-05-21 06:14 | XMS_ITS | Encounter Summary ---
Author Organization [facility] [place] [address] Care Team Providers Care Director Of Community Center Name Role Phone Unavailable Primary Care Provider Unavailabl e Encounter Details Date Type Department Care Team (Late st Contact Info) Description 08/14/2010 10:00 AM EST - 08/14/2010 11:59 PM EST Hospital Encounter [place] [address] Mari Paniagua MD [facility] [place] [address] Social History Tobacco Use Types Packs/Day Years [...] PM EST Office [place] [address] Paula Harris PA [facility] [place] [address] 01/26/2025 9:50 AM EDT Appointment Mammography/[place] [address] Joan Deutsch, [facility] [place] [place] [address] 01/26/2025 10:50 AM EDT Office Visit [place] [address] Joan Deutsch, [facility] [place] [place] [address] documented as of this encounter Visit Diagnoses Not on filedocumented in this encounter
--- OUTSIDE RECORDS SUMMARY | 2024-05-21 06:14 | XMS_ITS | Encounter Summary ---
Author Organization [facility] Address [address] [place] [address] Care Team Providers Care Fresh Work Wrapper Layer Name Role Phone Mariluz Watts MD Primary Care Provider [phone] Encounter Details Date Type Department Care Team ([facility] st Contact Info) Description 12/31/2023 Lab Requisition [facility] Pathology & Laboratory Medicine - [address] [address] Outr Resulting Lab, Provider Social History Tobacco [...] Neg and Giardia Antigen Neg 11:14 EDT [facility] Feces SPECIMEN FROM RECTUM / Unknown 12/31/2023 11:30 EDT 12/31/2023 21:53 EDT Provider Outr Resulting Lab MICROBIOLOGY - GENERAL ORDERABLES Performing Organization Address City/[facility] Co de Phone Number [facility] [address] [place] [address] * FECAL BACTERIAL PATHOGENS BY PCR (12/31/2023 11:30 EDT) Salmonella PCR Negative Negative 01/01/2024 15:04 EDT [facility] Shigella/Enteroin vasive E. coli Negative Negative 01/01/2024 15:04 EDT [facility] HN LAB CAMPYLOBACTER PCR Negative Negative 01/01/2024 15:04 EDT [facility] Shiga Toxin PCR Negative Negative 15:04 EDT [facility] Feces SPECIMEN FROM RECTUM / Unknown 12/31/2023 11:30 EDT 12/31/2023 21:53 EDT Provider Outr Resulting Lab MICROBIOLOGY - GENERAL ORDERABLES Performing Organization Address City/[facility] Co de Phone Number [facility] [address] [place] [address] documented in this encounter Visit Diagnoses Not on filedocumented in this encounter Care Teams Fresh Work Wrapper Layer Relationship Specialty Start Date End Date Mariluz Watts MD [address] [place] [address] PCP - General Family Medicine - Primary Care 12/26/22 documented as of this encounter
--- OUTSIDE RECORDS SUMMARY | 2024-05-21 06:14 | XMS_ITS | Encounter Summary ---
Author Organization [facility] Address [address] [place] [address] Care Team Providers Care Analysis Analyst Name Role Phone Mariluz Watts MD Primary Care Provider [phone] Encounter Details Date Type Department Care Team ([facility] st Contact Info) Description 05/12/2021 Lab Requisition [facility] Pathology & Laboratory Medicine - [address] [address] Outr Resulting Lab, Provider Social History Tobacco [...] Salmonella PCR Negative Negative 05/12/2021 21:36 EDT [facility] Shigella/Enteroin vasive E. coli Negative Negative 05/12/2021 21:36 EDT [facility] HN LAB CAMPYLOBACTER PCR Negative Negative 05/12/2021 21:36 EDT [facility] Shiga Toxin PCR Negative Negative 21:36 EDT [facility] Feces SPECIMEN FROM RECTUM / Unknown 05/11/2021 19:50 EDT 05/12/2021 16:44 EDT Provider Outr Resulting Lab MICROBIOLOGY - GENERAL ORDERABLES [facility] [address] [place] [address] documented in this encounter Visit Diagnoses Not on filedocumented in this encounter Care Teams Analysis Analyst Relationship Specialty Start Date End Date Mariluz Watts MD [address] [place] [address] [address] [place] [address] PCP - General Family Medicine - Primary Care 12/26/22 documented as of this encounter
--- OUTSIDE RECORDS SUMMARY | 2024-05-21 06:14 | XMS_ITS | Encounter Summary ---
Author Organization [facility] [place] [address] Care Team Providers Care Curtain Framer Name Role Phone Mariluz Watts MD Primary Care Provider [phone] Encounter Details Date Type Department Care Team (Late st Contact Info) Description 10/19/2010 3:45 PM EST Follow-[place] [address] Ruben Oconnor MD [address] [place] [address] Discharge Disposition: Home Social History Tobacco Use [...] PM EST Office [place] [address] Paula Harris PA [facility] [place] [address] 01/26/2025 9:50 AM EDT Appointment Mammography/[place] [address] Joan Deutsch, [facility] [place] [address] 01/26/2025 10:50 AM EDT Office Visit [place] [address] Joan Deutsch, [facility] [place] [address] documented as of this encounter Visit Diagnoses Not on filedocumented in this encounter Care Teams Curtain Framer Relationship Specialty Start Date End Date Mariluz Watts MD [address] [place] [address] [address] [place] [address] PCP - General 08/22/10 documented as of this encounter
--- OUTSIDE RECORDS SUMMARY | 2024-05-21 06:14 | XMS_ITS | Encounter Summary ---
[place] [address] Care Team Providers Care Molder Foam Rubber Name Role Phone Mariluz Watts MD Primary Care Provider [phone] Reason for Visit * Reason Comments Follow Up Surgery Encounter Details Date Type Department Care Team (Late st Contact Info) Description 11/01/2011 1:00 PM EST Follow-Up [place] [address] Bella Ly APRN [facility] [place] [address] Breast cancer, stage 2 (Primary Dx) Discharge [...] carcinoma with lobular features Tumor Grade: Intermediate Opwqhz-Ztfjs-Qfhvhiidix Score: 7 Tubular Differentiation: 3 Mitotic Rate: [...] sentinel nodes: 2 (Specimen A - Right Nicholson node) No. positive for carcinoma: 1 (H&E) No. with IHC (+) cells only: 0 (cells not seen by H&E, see Note*) No. negative for carcinoma: 1 (both H&E and IHC For positive nodes: Largest kristi deposit 0.2 cm Extranodal extension Absent Estrogen/Progestin receptors: Performed on blocks C2 and C11 ER immunoreactivity: Positive (see Diagnostic hanna*) SD immunoreactivity: Positive (see Diagnostic hanna*) HER2/shonda expression [...] PM EST Office Visit [place] [address] Paula Harris PA [facility] [place] [address] 01/26/2025 9:50 AM EDT Appointment Mammography/[place] [phone] Joan Deutsch APRN [facility] [place] [address] 01/26/2025 10:50 AM EDT Office Visit [place] [address] Joan Deutsch APRN [facility] [place] [address] documented as of this encounter Visit Diagnoses Diagnosis Breast cancer, stage 2- Primary Malignant neoplasm of breast (female), unspecified site documented in this encounter Care Teams Molder Foam Rubber Relationship Specialty Start Date End Date Mariluz Watts MD [address] [place] [address] PCP - General 08/22/10 documented as of this encounter
--- OUTSIDE RECORDS SUMMARY | 2024-05-21 06:14 | XMS_ITS | Encounter Summary ---
Author Organization [facility] Address [address] [place] [address] Care Team Providers Care Hide Mill Worker Name Role Phone Mariluz Watts MD Primary Care Provider [phone] Encounter Details Date Type Department Care Team ([facility] st Contact Info) Description 05/15/2021 Lab Requisition [facility] Pathology & Laboratory Medicine - [address] [address] Outr Resulting Lab, Provider Social History Tobacco [...] Neg and Giardia Antigen Neg 10:12 EDT [facility] Feces SPECIMEN FROM RECTUM / Unknown 05/14/2021 18:00 EDT 05/15/2021 16:39 EDT Provider Outr Resulting Lab MICROBIOLOGY - GENERAL ORDERABLES [facility] [address] [place] [address] documented in this encounter Visit Diagnoses Not on filedocumented in this encounter Care Teams Hide Mill Worker Relationship Specialty Start Date End Date Mariluz Watts MD [address] [place] [address] PCP - General Family Medicine - Primary Care 12/26/22 documented as of this encounter
--- OUTSIDE RECORDS SUMMARY | 2024-05-21 06:14 | XMS_ITS | Encounter Summary ---
[place] [address] Care Team Providers Care Coding File Clerk Name Role Phone Mariluz Watts MD Primary Care Provider [phone] Encounter Details Date Type Department Care Team (Late st Contact Info) Description 01/10/2004 [place] [address] Gallito Travis MD [facility] [place] [address] Social History Tobacco Use Types Packs/Day Years [...] PM EST Office [place] [address] Paula Harris PA [facility] [place] [address] 01/26/2025 9:50 AM EDT Appointment Mammography/[place] [phone] Joan Deutsch, [facility] [place] [address] 01/26/2025 10:50 AM EDT Office [place] [address] Joan Deutsch, [facility] [place] [address] documented as of this encounter Procedures Procedure Name Priority Date/Time Associated Diagnosis Comments SURGICAL PATHOLOGY REPORT Routine 01/10/2004 9:35 AM EDT documented in this encounter Results * Surgical Pathology Report (01/10/2004 9:35 AM EDT) Surgical Pathology Report [id number] ? Location: [facility] The signing pathologist has (i) examined the relevant preparation(s) for the specimen(s) and (ii) rendered or confirmed the diagnosis(es). . ?Pathology Surgical Pathology Final Report Clinical Information Specimen Submitted: A - Right breast Clinical History: Oval well defined mass CD: FA vs cyst (FCD) vs ca. Report to: Mariluz Watts MD [facility] [address] [place] [address] Gross Description Labeled/Fixativ e: ? Right breast, [...] on filedocumented in this encounter Care Teams Coding File Clerk Relationship Specialty Start Date End Date Mariluz Watts MD [address] [place] [address] PCP - General 08/22/10 documented as of this encounter
--- OUTSIDE RECORDS SUMMARY | 2024-05-21 06:14 | XMS_ITS | Encounter Summary ---
Author Organization [facility] Address [address] [place] [address] Care Team Providers Care Bus Analyst Name Role Phone Unavailable Primary Care Provider Unavailabl e Encounter Details Date Type Department Care Team (Latest Contact Info) Description 01/17/2000 13:45 EDT Hospital Encounter [address] [address] Thea Charlotn, [facility] Discharge Disposition: Auto Discharge Social History Tobacco [...] Procedure Name Priority Date/Time Associated Diagnosis Comments AR MAMMOGRAPHIC SCREEN ANDRES Routine 01/17/2000 14:26 EDT [...]
--- OUTSIDE RECORDS SUMMARY | 2024-05-21 06:14 | XMS_ITS | Encounter Summary ---
Author Organization [facility] [place] [address] Care Team Providers Care Proposal Specialist Name Role Phone Mariluz Watts MD Primary Care Provider [phone] Encounter Details Date Type Department Care Team (Late st Contact Info) Description 10/26/2010 10:30 AM EST Procedure visit [place] [address] Social History Tobacco Use Types Packs/Day Years [...] PM EST Office [place] [address] Paula Harris PA [facility] [place] [address] 01/26/2025 9:50 AM EDT Appointment Mammography/[place] [address] Joan Deutsch APRN [facility] [place] [address] 01/26/2025 10:50 AM EDT Office [place] [address] Joan Deutsch APRN [facility] [place] [address] documented as of this encounter Visit Diagnoses Not on filedocumented in this encounter Care Teams Proposal Specialist Relationship Specialty Start Date End Date Mariluz Watts MD [address] [place] [address] PCP - General 08/22/10 documented as of this encounter
[2024-05-21 06:32] VITALS: BP 121/88; PULSE 89; RESP 16; TEMP 36.4; O2SAT 99
[2024-05-21] MEDS: Sulfameth/Trimeth DS TAB 1 TAB PO (06:35)
[2024-05-21] MEDS: Lactated Ringers 1,000 ML 80 ML IV (06:36)
--- NOTE | 2024-05-21 06:57 | W.PM.HP.N ---
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 History of Present Illness History of Present Illness Chief Complaint: overactive bladder Narrative: This is a 78-year-old woman who has a history of urinary frequency, urgency and urgency incontinence due to an overactive bladder. She has tried and failed oral medications and behavioral modification. 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 She has had an injection of Botox previously and had excellent results. She is currently on Bactrim for a urinary tract infection and she is interested in staying on a prophylactic dose of Bactrim following the surgery. Review of Systems Narrative: No fevers or chills No vision change or dysphasia No diabetes or thyroid Sleep apnea. No shortness of breath, cough or hemoptysis Hx atrial fibrillation. No chest pain Hiatal hernia. No hepatitis, ulcers, jaundice No seizures, strokes or peripheral neuropathy No bleeding disorders or anemia Arthritis. No gout PFSH All Active Problems (Updated 05/21/24 @ 07:01 by Kings Wyatt MD) Overactive bladder (Acute) Decreased hearing (Acute) Memory changes (Acute) Recurrent UTI (Chronic 12/31/17) Low ferritin (Acute) Arthritis of right glenohumeral joint (Acute) Sleep apnea (Acute) Shoulder pain, right (Acute) Bleeding disorder (Acute) Atrial fibrillation (Chronic) Urinary incontinence (Acute) Vitamin D deficiency (Acute) Hallux valgus (acquired), right foot (Acute) Encounter for annual physical exam (Acute) Bladder irritability (Acute) Hypercholesteremia (Acute) Hiatal hernia (Chronic) Depression (Chronic) Iron deficiency anemia (Chronic) thought to be secondary to large hiatal hernia; requires lifelong iron and PPI Anxiety (Chronic) 12/31/17 OPAL-7 SCORE=12 Generalized osteoarthrosis (Chronic) right hip-extensive and severe DJD w/ acetabular FX-right hip replacement DJD L5-S1 Increased body mass index (Chronic) Vaginal atrophy (Chronic 07/25/15) Medical History (Updated 05/21/24 @ 07:01 by Kings Wyatt MD) Primary insomnia (09/12/15) Disorder of skin skin sensitivities-poison oak/giovany; poison giovany-staph inf. Gastrointestinal hemorrhage 09/30/05 Vertigo 12/06/11 Acute upper respiratory infection 12/01/[address] scan of the sinus Metatarsalgia 06/25/13 surgery 09/2013 Dupuytren's disease 07/03/13 Sepsis due to urinary tract infection 07/25/15 stone Degeneration of intervertebral disc (06/16/13) L5-S1 Depressive disorder (05/10/09) Diverticulosis of colon without diverticulitis 2000; 2006; 2011, 02/2017, 08/2022 Internal hemorrhoids Knee pain left; MRI 09/03-posterior horn meniscal tear and decrease cartilage Malignant neoplasm of female breast metastatic Marfan syndrome Polyp of colon per colonoscopy 2006; Reflux gastritis (09/14/14) Urgency incontinence (02/12/17) Vitamin D deficiency (07/16/08) Surgical History History of eyelid surgery Bilateral H/O cystoscopy S/P tonsillectomy Ligation of fallopian tube (~1993) Total replacement of hip 2004 RIGHT;2010 LEFT Tonsillectomy Meniscectomy 2005 LEFT KNEE GLASS REMOVAL 1970 RIGHT KNEE Colonoscopy - IV Sedation (02/29/12) 2000,2006, 2011,2016, 08/2022 Family History Mother , LEUKEMIA at age 87. CLL (chronic lymphocytic leukemia) Arthritis Father , UNKNOWN at age 93. Dementia Hyperlipidemia Brother Diabetes TYPE 2 Kidney disease Maternal Grandfather No problems noted. Paternal Grandfather Prostate cancer Maternal Grandmother Heart disease Son Asthma Social History (Updated 12/18/22 @ 19:52 by Mariluz Watts MD, [place]) Smoking/Tobacco Use Status: Former Tobacco Use tobacco type: cigarettes Quit Date: 09/30/1968 Tobacco: How many years used: 3 Second Hand Exposure: No Smoking risk assessment performed?: Yes Alcohol Intake: former Drug use: Never Substance use type: does not use and other Details: marijuana for sleep in past Household members: family and children Housing: house Communication Needs: None Do you need help understanding health information?: Always Pets and animals: Yes Pets and animals: dog(s) and other Sexually active: No Do you think of yourself as: Asexual Current gender identity: female What is your relationship status?: How often do you talk on the phone with friends or family?: three or more times per week How often do you get together with friends or relatives?: three or more times per week Do you belong to any clubs or organized social groups?: yes Panel score (0-1 are the most socially isolated patients): 2 What type of physical activity do you participate in: walking, aerobic and bicycling Duration: 30-45 minutes/day Frequency: 5-6 times per week Eliza/Buddhism: No preference Special eliza needs: No Seatbelt use: always Helmet use: Yes Helmet use: always Drive intox or ride w/intox 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 Do you feel safe at home: Yes Do you feel safe in your relationship?: Yes Meds Allergies and Home Medications Allergies Allergy/AdvReac Type Severity Reaction Status Date / Time bee venom protein (honey bee) Allergy Severe Anaphylaxsi Verified 05/21/24 06:15 s Tetracyclines Allergy Severe Anaphylaxsi Verified 05/21/24 06:15 s trazodone AdvReac Severe Psychosis Verified 05/21/24 06:15 Home Medications ?Medication ?Instructions ?Recorded ?Confirmed ?Type ascorbic acid (vitamin C) 500 mg 500 mg PO DAILY 04/05/20 05/21/24 History capsule acetaminophen 500 mg tablet 1,000 mg PO TID 05/02/21 05/21/24 History (Tylenol Extra Strength) calcium carbonate 333 mg-magnesium 1 tab PO DAILY 05/02/21 05/21/24 History oxide 133 mg-zinc sulf 5 mg tablet cholecalciferol (vitamin D3) 25 4,000 unit PO DAILY 05/02/21 05/21/24 History mcg (1,000 unit) capsule clindamycin phosphate 1 % topical 1 applic topical DAILY PRN eczema 10/10/21 05/21/24 Rx solution #60 mL metronidazole 1 % topical gel 1 applic topical DAILY PRN rosacea 10/10/21 05/21/24 Rx (Metrogel) #180 grams mupirocin 2 % topical ointment 1 applic topical BID PRN rash #15 10/10/21 05/21/24 Rx grams ferrous sulfate 100 mg PO DAILY #100 tabs 12/18/22 05/21/24 Rx azelaic acid 15 % topical gel 1 applic topical DIRECTED 04/25/23 05/21/24 History rosacea magnesium oxide 400 mg PO DAILY 10/02/23 05/21/24 History melatonin 5 mg tablet 5 mg PO HS PRN 10/02/23 05/21/24 History omeprazole 20 mg capsule,delayed 20 mg PO DAILY #90 caps 12/25/23 05/21/24 Rx release ropinirole 0.25 mg tablet 0.25 mg PO QHS #90 tabs 01/30/24 05/21/24 Rx escitalopram oxalate 20 mg tablet 20 mg PO DAILY #90 tabs 03/16/24 05/21/24 Rx sulfamethoxazole 800 1 tab PO BID #14 tabs 05/20/24 05/21/24 Rx mg-trimethoprim 160 mg tablet (Bactrim DS) Exam Const General: cooperative Neck Neck: supple Resp Effort & Inspection: normal respiratory effort Auscultation: clear to auscultation bilaterally Cardio Rate: regular rate Rhythm: regular rhythm GI Palpation: soft and no masses Neuro General: patient alert, patient awake and patient oriented x3 Results Last Vital Signs Temp 36.4 C L 05/21/24 06:32 Pulse 89 05/21/24 06:32 Resp 16 05/21/24 06:32 BP 121/88 05/21/24 06:32 Pulse Ox 99 05/21/24 06:32 Time Spent Time spent with Patient: <40 minutes Time was spent: other
--- NOTE | 2024-05-21 07:17 | W.ANESPRE ---
General Info Date of Service Date Performed: 05/21/24 Height: 5 ft 5 in Weight: 84.9 kg Body Mass Index (BMI): 31.1 Surgical Procedure: Operation Date: 05/21/24 07:40 Proposed Procedure Side Surgeon p Cystoscopy/ Transurethral Injection of Botox Kings Wyatt MD Meds Allergies and Home Medications Allergies Allergy/AdvReac Type Severity Reaction Status Date / Time bee venom protein (honey bee) Allergy Severe Anaphylaxsi Verified 05/21/24 06:15 s Tetracyclines Allergy Severe Anaphylaxsi Verified 05/21/24 06:15 s trazodone AdvReac Severe Psychosis Verified 05/21/24 06:15 Home Medication ?Medication ?Instructions ?Recorded ascorbic acid (vitamin C) 500 mg 500 mg PO DAILY 04/05/20 capsule acetaminophen 500 mg tablet 1,000 mg PO TID 05/02/21 (Tylenol Extra Strength) calcium carbonate 333 mg-magnesium 1 tab PO DAILY 05/02/21 oxide 133 mg-zinc sulf 5 mg tablet cholecalciferol (vitamin D3) 25 4,000 unit PO DAILY 05/02/21 mcg (1,000 unit) capsule clindamycin phosphate 1 % topical 1 applic topical DAILY PRN eczema 10/10/21 solution #60 mL metronidazole 1 % topical gel 1 applic topical DAILY PRN rosacea 10/10/21 (Metrogel) #180 grams mupirocin 2 % topical ointment 1 applic topical BID PRN rash #15 10/10/21 grams ferrous sulfate 100 mg PO DAILY #100 tabs 12/18/22 azelaic acid 15 % topical gel 1 applic topical DIRECTED 04/25/23 rosacea magnesium oxide 400 mg PO DAILY 10/02/23 melatonin 5 mg tablet 5 mg PO HS PRN 10/02/23 omeprazole 20 mg capsule,delayed 20 mg PO DAILY #90 caps 12/25/23 release ropinirole 0.25 mg tablet 0.25 mg PO QHS #90 tabs 01/30/24 escitalopram oxalate 20 mg tablet 20 mg PO DAILY #90 tabs 03/16/24 sulfamethoxazole 800 1 tab PO BID #14 tabs 05/20/24 mg-trimethoprim 160 mg tablet (Bactrim DS) Current Visit Medications: Current Medications Generic Name Dose Route Start Last Admin Trade Name Freq PRN Reason Stop Dose Admin OnabotulinumtoxinA 100 units/ 0 units 08/22/24 06:00 Sodium Chloride 20 ml IJ 05/21/24 23:59 05/21/24 DELROY Ringer's Solution 1,000 mls @ 80 mls/hr 05/21/24 06:00 05/21/24 06:36 IV 06/19/24 23:59 80 mls/hr INFUSION DELROY Administration IV Miscellaneous Supplies 1 each 05/21/24 06:00 Iv Access IV 06/19/24 23:59 DIRECTED DELROY Sodium Chloride 0 ml 05/21/24 06:00 Normal Saline Flush 10 Ml Syr IV 06/19/24 23:59 PRN PRN Sodium Chloride 0 ml 05/21/24 06:00 Normal Saline 10 Ml Vial IJ 06/19/24 23:59 DIRECTED PRN Sterile Water 0 ml 05/21/24 06:00 Water,Injection,Sterile 10 Ml Vial IJ 06/19/24 23:59 DIRECTED PRN Trimethoprim/Sulfamethoxazole 1 tab 05/21/24 06:00 05/21/24 06:35 Sulfameth/Trimeth Ds Tab PO 05/21/24 23:59 1 tab PREOP DELROY Administration PFSH Active Problems Active Problems: Problem Status Onset Code Overactive bladder Acute N32.81 Decreased hearing Acute H91.90 Memory changes Acute R41.3 Recurrent UTI Chronic 12/31/17 N39.0 Low ferritin Acute R79.0 Arthritis of right glenohumeral joint Acute M19.011 Sleep apnea Acute G47.30 Shoulder pain, right Acute M25.511 Bleeding disorder Acute D69.9 Atrial fibrillation Chronic I48.91 Urinary incontinence Acute R32 Vitamin D deficiency Acute E55.9 Hallux valgus (acquired), right foot Acute M20.11 Encounter for annual physical exam Acute Z00.00 Bladder irritability Acute N32.89 Hypercholesteremia Acute E78.00 Dupuytren's disease Resolved 07/03/13 M72.0 Hiatal hernia Chronic K44.9 Depression Chronic F32.9 Iron deficiency anemia Chronic D50.9 Anxiety Chronic F41.9 Condylomata acuminata in female Resolved 05/02/17 A63.0 Generalized osteoarthrosis Chronic M15.9 Increased body mass index Chronic R63.8 Vaginal atrophy Chronic 07/25/15 N95.2 Medical History Medical History (Updated 05/21/24 @ 07:01 by Kings Wyatt MD) Primary insomnia (09/12/15) Disorder of skin skin sensitivities-poison oak/giovany; poison giovany-staph inf. Gastrointestinal hemorrhage 09/30/05 Vertigo 12/06/11 Acute upper respiratory infection 12/01/[address] scan of the sinus Metatarsalgia 06/25/13 surgery 09/2013 Dupuytren's disease 07/03/13 Sepsis due to urinary tract infection 07/25/15 stone Degeneration of intervertebral disc (06/16/13) L5-S1 Depressive disorder (05/10/09) Diverticulosis of colon without diverticulitis 2000; 2006; 2011, 02/2017, 08/2022 Internal hemorrhoids Knee pain left; MRI 09/03-posterior horn meniscal tear and decrease cartilage Malignant neoplasm of female breast metastatic Marfan syndrome Polyp of colon per colonoscopy 2006; Reflux gastritis (09/14/14) Urgency incontinence (02/12/17) Vitamin D deficiency (07/16/08) Surgical History Surgical History History of eyelid surgery Bilateral H/O cystoscopy S/P tonsillectomy Ligation of fallopian tube (~1993) Total replacement of hip 2004 RIGHT;2010 LEFT Tonsillectomy Meniscectomy 2006 LEFT KNEE GLASS REMOVAL 1970 RIGHT KNEE Colonoscopy - IV Sedation (02/29/12) 2000,2006, 2011,2016, 08/2022 Tobacco Smoking/Tobacco Use Status: Former Tobacco Use Passive smoking exposure: No Second hand exposure: No Alcohol Alcohol Intake: former Substance Use Substance use: Never Substance use type: does not use and other Details: marijuana for sleep in past Vital Signs and Lab Results Vital Signs Most Recent Vital Signs in EMR: Most Recent Vital Signs Temp Pulse Resp BP Pulse Ox 36.4 C L 89 16 121/88 99 05/21/24 06:32 05/21/24 06:32 05/21/24 06:32 05/21/24 06:32 05/21/24 06:32 Lab Results Blood Type / Crossmatch: No Data to Display Complete Blood Count: White Blood Count 6.00 10^3/uL (4.4-10.8) 04/24/24 10:45 Red Blood Count 5.07 10^6/uL (3.93-5.22) 04/24/24 10:45 Hemoglobin 14.9 g/dL (11.2-15.7) 04/24/24 10:45 Hematocrit 44.4 % (36.0-46.0) 04/24/24 10:45 Platelet Count 254 10^3/uL (130-400) 04/24/24 10:45 Complete Metabolic Panel: No Data to Display Liver Function Panel: No Data to Display Coagulation Panel: No Data to Display Cardiac Panel: No Data to Display Arterial Blood Gas: No Data to Display Venous Blood Gas: No Data to Display Pancreas Panel: No Data to Display Thyroid Panel: No Data to Display Infectious Disease: No Data to Display Blood Cultures: No Data to Display Toxicology Panel: No Data to Display Imaging and Studies Imaging and Studies Study information below may be from another EMR and interpreted by another provider. Please see original notes in EMR for more complete details. EKG Summary: 09/11/2022: Exam: Resting ECG Reason for Exam: Newly diagnosed A-fib, diagnosed at [facility] [place] Patient Location: O HR:100 bpm ECG Measurements Heart Rate 100 AXIS MS [id number] P [id number] QRSd 85 QRS -71 QT 336 T71 QTc 434 Conclusion Atrial fibrillation...V-rate 83-103, irreg A-activity Abnormal R-wave progression, early transition...QRS area>0 in V2 Inferior infarct, old...Q >35mS, II III aVF Stress Test Summary: 09/20/22: MPI Conclusion Normal myocardial perfusion without evidence of ischemia or prior infarction Wall motion is normal. EF appears within the normal range Echocardiogram Summary: 10/24/22: Conclusion Normal left ventricular wall thickness and chamber size. Estimated ejection fraction is 55 to 60%. There are no segmental wall motion abnormalities Normal right ventricular size and systolic function Left atrium is moderately dilated. Right atrial size is normal Aortic valve is trileaflet and mildly sclerotic without stenosis or regurgitation Normal mitral valve, mild mitral regurgitation Normal tricuspid valve, mild regurgitation. Estimated right ventricular systolic pressure is 21 mmHg Borderline dilated ascending aorta Anesthesia Assessment and Plan Anesthesia History Personal History: No History of Anesthesia Complications Family History: No Family History of Anesthesia Complications Exercise Tolerance Exercise Tolerance: Metabolic Equivalents>4 Pertinent Negatives Pertinent Negatives: No Symptoms of GERD, No Major Cardiovascular Symptoms or Complaints, No Major Pulmonary Symptoms or Complaints and No History of CVA/TIA Cardiac & Pulmonary Exam Cardiac Exam: Normal S1/S2 Heart Sounds Pulmonary Exam: Clear Bilateral Breath Sounds Implantable Cardiac Device Does patient have a Pacemaker or an ICD?: No Airway Exam Known Difficult Airway: No Mallampati Class: 2 Mouth Opening: Normal (> 3cm) Thyromental Distance: Greater than 3 cm Neck Range of Motion: Full ROM Neck Circumference: Normal Teeth Condition: Normal Dentition ASA Classification ASA Score: ASA 2 Emergency Case?: No NPO Status NPO Status: NPO Clears >2 hours, Solids >8 hours Anesthesia Plan Resuscitation Status: Full Code Anesthesia Technique: General Anesthesia Airway Planned: Natural Airway Monitors Used: Standard Monitors Preoperative Comments:: Same procedure in Sep 2023 without problems.
[2024-05-21 07:20] VITALS: BMI 31.1
[2024-05-21] MEDS: Lidocaine 2% Jelly 11 ML SYR (07:51)
[2024-05-21] MEDS: BOTULINUM TOXIN TYPE A 100 UNITS, Normal Saline 20 ML IJ (07:52)
--- NOTE | 2024-05-21 07:59 | W.PM.OP ---
Date of service: 05/21/24 Time of Service: 07:59 Operative Note Operative Note DATE OF PROCEDURE: 05/21/24 PRE-OP DIAGNOSIS: Overactive bladder POST-OP DIAGNOSIS: same PROCEDURE: cystoscopy with transurethral injection of Botox SURGEON: Kings Wyatt ANESTHESIA TYPE: Local By Surgeon and General:No Airway Refer to Anesthesia Record ESTIMATED BLOOD LOSS: 5 PATHOLOGY: none sent COMPLICATIONS: None Patient was transported to: same day Patient's condition: stable Implants: 100 units of Botox injected into the detrusor muscle Indications: This is a 78-year-old woman who has a history of urinary frequency, urgency and urgency incontinence related to overactive bladder. She has had benefit from an injection of Botox into the detrusor muscle over 6 months ago. She presents for repeat injection Findings: Normal-appearing bladder Procedure Description: The patient was brought to the operating room on 05/21/2024. She received preop oral antibiotics. After successful induction of general anesthesia without intubation, she was placed in the dorsal lithotomy position. Her genitalia was prepped and draped. 2% Xylocaine jelly was instilled into the urethra to act as a local anesthetic. A 20 Mongolian urethrotome sheath was passed through the urethra into the bladder. The bladder was inspected with a 30 degree lens. Both ureteral orifices appeared normal with no blood seen coming from either side. The remainder the bladder was smooth-walled with no ulcerations. No papillary or nodular lesions were seen. We had mixed 100 units of Botox and 20 mL of dilute. Using a transurethral injection system, we injected a total of 1 mL in 20 different locations. We chose a grid pattern with 5 vertical rows and 4 horizontal rolls. The injections were all on the posterior bladder wall. We avoided the trigone and bladder neck with our injections. The bladder was then emptied and the scope was removed. The patient tolerated the procedure well with no complications.
--- NOTE | 2024-05-21 08:02 | W.PM.DSUDISC ---
Date of service: 05/21/24 Time of Service: 08:02 Discharge Plan Disposition Patient Disposition: Home Condition: Stable Discharge Details Reason For Visit: cystoscopy with Botox injection Attending Provider: Kings Wyatt Primary Care Provider: Mariluz Watts Home Meds and New Rx's Prescriptions: New sulfamethoxazole-trimethoprim [Bactrim] 400-80 mg tablet 1 tab PO QHS Qty: 90 0RF Rx Instructions: start after completing current course of antibiotics No Action ascorbic acid (vitamin C) 500 mg capsule 500 mg PO DAILY calcium carb-mag ox-zinc sulf 333-133-5 mg tablet 1 tab PO DAILY Rx Instructions: administer with a meal azelaic acid 15 % gel 1 applic topical DIRECTED melatonin 5 mg tablet 5 mg PO HS PRN magnesium oxide 400 mg magnesium capsule 400 mg PO DAILY acetaminophen [Tylenol Extra Strength] 500 mg tablet 1,000 mg PO TID cholecalciferol (vitamin D3) 25 mcg (1,000 unit) capsule 4,000 unit PO DAILY ferrous sulfate 100 mg tablet 100 mg PO DAILY Qty: 100 0RF clindamycin phosphate 1 % solution 1 applic topical DAILY PRN (Reason: eczema) Qty: 60 4RF metronidazole [Metrogel] 1 % gel 1 applic Topical DAILY PRN (Reason: rosacea) Qty: 180 5RF Rx Instructions: [facility] mupirocin 2 % ointment 1 applic TP BID PRN (Reason: rash) Qty: 15 2RF omeprazole 20 mg capsule,delayed release(DR/EC) 20 mg PO DAILY Qty: 90 4RF ropinirole 0.25 mg tablet 0.25 mg PO QHS Qty: 90 3RF Rx Instructions: administer 1-3 hours before bedtime. Increase to 0.5mg if lower dose not helpful escitalopram oxalate 20 mg tablet 20 mg PO DAILY Qty: 90 4RF sulfamethoxazole-trimethoprim [Bactrim DS] 800-160 mg tablet 1 tab PO BID Qty: 14 0RF Discharge Instructions Additional Instructions: call 1 week with progress report Followup appointment 3 months to discuss antibiotic use Followup 6 months to discuss repeat Botox injection Stand Alone Forms: Anesthesia Discharge Inst., [facility]SU Urology Je Senior (DSU) Activity:: Activity as Tolerated Shower/Bathe:: 24 hours Diet:: As Tolerated Discharge Orders Discharge Orders: Discharge Order (Routine); Ordered 05/21/24 Ordered By: Kings Wyatt Discharge Data Discharge Date/Time-TO BE ENTERED AT DEPARTURE: 05/21/24 08:59 DS: Diagnosis Discharge Diagnosis (1) Overactive bladder: Status: Acute
[2024-05-21 08:06] VITALS: BP 98/72; PULSE 81; RESP 16; TEMP 36.4; O2SAT 96
--- NOTE | 2024-05-21 08:32 | W.ANESPOSTOP ---
Postoperative Evaluation Date, Time and Location Date Performed: 05/21/24 Time Performed: 08:19 Patient Location: Day Surgery Unit Vital Signs Most Recent Imported Vital Signs: Most Recent Vital Signs Temp Pulse Resp BP Pulse Ox 36.4 C L 81 16 98/72 L 96 05/21/24 08:06 05/21/24 08:06 05/21/24 08:06 05/21/24 08:06 05/21/24 08:06 Pain Score Most Recent Pain Score: Most Recent Pain Score Pain Level 0 05/21/24 08:06 Assessment Mental Status: Awake (Alert & Oriented to Patient Baseline) Airway and Respiratory Function: Patent airway with normal (patient baseline) respiratory exam Cardiovascular Function: Hemodynamically Stable Hydration Status: Adequately Hydrated Nausea & Vomiting: No Nausea or Vomiting Pain: Pt. Denies Any Pain Peripheral Nerve Block: Patient did not receive a nerve block
[2024-05-21 08:34] VITALS: BP 111/73; PULSE 72; RESP 16; TEMP 36.5; O2SAT 100
== END 2024-05-21 08:59 | disposition home or self-care (01) ==
PROVIDERS: PCP Family Medicine; Visit Provider Urology
PROC: (CPT 52287; principal; 2024-05-21 07:30)
DX: N32.81 Overactive bladder (principal); N39.41 Urge incontinence
CPT/HCPCS: 52287; J0585; J1100; J1885; J2001; J2405; J2704

== ENCOUNTER → 2024-05-25 07:45 | Outpatient (BNVA) | payer MEDICARE, SELFPAY | PROVIDERS: PCP Family Medicine; Visit Provider Nurse Practitioner Gerontology | DX: N39.41 Urge incontinence (principal); N39.0 Urinary tract infection, site not specified | CPT/HCPCS: 99213 ==

== ENCOUNTER → 2024-06-03 14:25 | Outpatient (BNVA) | payer MEDICARE, SELFPAY | PROVIDERS: PCP Family Medicine; Referring Provider Family Medicine; Visit Provider Student in an Organized Health Care Education/Training Program | DX: M19.011 Primary osteoarthritis, right shoulder (principal) | CPT/HCPCS: 20610; J1010 ==

== ENCOUNTER 2024-06-22 03:23 | Outpatient (CLI) | payer MEDICARE, SELFPAY ==
[2024-06-22 15:43] LABS: Abs Immature Grans 0.01 10^3/uL (0.0-0.06); Absolute Basophil Count 0.04 10^3/uL (0.0-0.2); Absolute Eosinophil Count 0.09 10^3/uL (0.0-0.7); Absolute Lymphocyte Count 1.87 10^3/uL (1.2-3.4); Absolute Neutrophil Count 3.16 10^3/uL (1.2-6.7); Basophils % 0.7 %; Eosinophils % 1.6 %; HCT 44.8 % (36.0-46.0); HGB 14.4 g/dL (11.2-15.7); Immature Grans % 0.2 %; Lymphocytes % 33.6 %; MCH 29.4 pg (27.0-33.0); MCHC 32.1 % (32.0-36.0); MCV 92 fL (80-95); MPV 11.2 fL (8.0-11.0); Monocytes % 7.2 %; Neutrophils % 56.7 %; Platelet Count 218 10^3/uL (130-400); RBC 4.89 10^6/uL (3.93-5.22); RDW 14.4 % (11.7-14.6); RDW-SD 48.9 fL; WBC 5.57 10^3/uL (4.4-10.8)
[2024-06-22 16:01] LABS: Bilirubin Negative (Negative); Blood Negative (Negative); Clarity Clear (Clear); Glucose Negative (Negative); Ketones Negative (Negative); Leukocyte Esterase Negative (Negative); Nitrite Negative (Negative); Specific Gravity 1.025 (1.005-1.025); Urobilinogen 0.2 mg/dL (Up to 0.2); pH 5.5 (5-8)
[2024-06-22 16:26] LABS: Iron 76 ug/dL (50-170)
[2024-06-22 16:49] LABS: Ferritin 217 ng/mL (8-252)
== END 2024-06-22 03:24 | disposition home or self-care (01) ==
PROVIDERS: PCP Family Medicine; Visit Provider Family Medicine
DX: D64.9 Anemia, unspecified (principal); N39.0 Urinary tract infection, site not specified
CPT/HCPCS: 36415; 81003; 82728; 83540; 85025

== ENCOUNTER 2024-07-02 16:29 | Outpatient (REF) | payer MEDICARE, SELFPAY ==
--- OUTSIDE RECORDS SUMMARY | 2024-07-02 16:31 | XMS_ITS | Encounter Summary ---
Author Organization [facility] [place] [address] Care Team Providers Care Vice President Of Contracts Name Role Phone Mariluz Watts MD Primary Care Provider [phone] Reason for Visit * Reason Comments Follow-up Encounter Details Date Type Department Care Team (Latest Contact Info) Description 11/18/2023 2:00 PM EST Office [place] [address] Aria Higuera MD [facility] [place] [address] AIN III (anal intraepithelial neoplasia III); Anal [...] Division of Colon and Rectal Surgery ~ [facility] PCP:Mariluz Watts MD HPI: Diamond Gaming [...] She was reportedly seeing hematology here at [facility] in 2009 who diagnosed her with [...] urology here at as well as in [place]. She has seen a pelvic floor physical therapist. She has been on several medications, including tolterodine. She has seen urology in [place], who have recently performed botox injections into [...] GI bleeding 03/25/2011 Hypermobility syndrome Kidney disease halfway current use of opiate analgesic Motion sickness [...] Rectal Surgery [facility] Pager [phone] 11/20/2023 8:16 AM documented in this encounter Plan of Treatment Upcoming Encounters Date Type Department Care Team (Late st Contact Info) Description 08/05/2024 8:20 AM EST Office Visit Dermatology at [facility] [address] [place] [phone] Charu Martin MD [facility] [place] [address] 11/16/2024 1:00 PM EST Office [place] [phone] Paula Harris, PA [facility] [place] [address] 01/26/2025 9:50 AM EDT Appointment Mammography/[place] [phone] Joan Deutsch, DOOR TO DOOR FUNDRAISING COLLECTOR [facility] [place] [address] 01/26/2025 10:30 AM EDT Office [place] [phone] Joan Deutsch, [facility] [place] [address] documented as of this encounter Visit Diagnoses [...] urgency documented in this encounter Care Teams Vice President Of Contracts Relationship Specialty Start Date End Date Mariluz Watts MD [address] [place] [address] [address] [facility] 1 [place] [address] PCP - General 08/22/10 documented as of this encounter
--- OUTSIDE RECORDS SUMMARY | 2024-07-02 16:31 | XMS_ITS | Encounter Summary ---
Author [facility] [place] [address] Care Team Providers Care Liner Machine Operator Helper Name Role Phone Mariluz Watts MD Primary Care Provider Encounter Details Date Type Department Care Team (Late st Contact Info) Description 01/21/2024 10:50 AM EDT Office [place] [address] Joan Deutsch [address]N [facility] [place] [address] Encounter for screening mammogram for breast cancer; History of breast cancer Social History Tobacco Use Types Packs/Day Years Used Date Smoking Tobacco: Former Cigarettes 1 3 0 09/30/1965 - 09/30/1968 Smokeless Tobacco: Never Alcohol Use Standard Drinks/Week Comments No 0 (1 standard drink = 0.6 oz pur e alcohol) [facility] Inpatient Questions Answer Date Recorded Does Anyone [...] this encounter Progress Notes * Joan Deutsch, REED PRESS FEEDER - 01/21/2024 10:50 AM EDT Diamond is [...] carcinoma with lobular features Tumor Grade: Intermediate Yismkg-Xpqwm-Dpjzioxwfy Score: 7 Tubular Differentiation: 3 Mitotic Rate: [...] sentinel nodes: 2 (Specimen A - Right [place] node) No. positive for carcinoma: 1 (H&E) No. with IHC (+) cells only: 0 (cells not seen by H&E, see Note*) No. negative for carcinoma: 1 (both H&E and IHC For positive nodes: Largest kristi deposit 0.2 cm Extranodal extension Absent Estrogen/Progestin receptors: Performed on blocks C2 and C11 ER immunoreactivity: Positive (see Diagnostic hanna*) MT immunoreactivity: Positive (see Diagnostic hanna*) HER2/shonda expression [...] 8:20 AM EST Office Visit Dermatology at [facility] [address] [place] [address] Charu Martin MD [facility] [address]-DERMATOLOGY [place] [id number] 11/16/2024 1:00 PM EST Office Visit General Surgery at [place] [phone] Paula Harris PA [facility] [place] [address] 01/26/2025 9:50 AM EDT Appointment Mammography/[place] [address] Joan Deutsch, [facility] [place] [address] 01/26/2025 10:30 AM EDT Office Visit General Surgery at [place] [phone] Joan Deutsch, [facility] [place] [address] Scheduled Orders Name Type Priority Associated Diagnoses Orde r Schedule Mammo Screening Cad and Irvin Bilateral Imaging Routine Encounter for screening mammogram for breast cancer Expected: 01/20/2025, Expires: 07/22/2025 documented as of this encounter Visit Diagnoses Diagnosis Encounter for screening mammogram for breast cancer History of breast cancer Personal history of malignant neoplasm of breast documented in this encounter Care Teams Liner Machine Operator Helper Relationship Specialty Start Date End Date Mariluz Watts MD [address] [place] [address] [address] [facility] 1 [place] [address] PCP - General 08/22/10 documented as of this encounter
--- OUTSIDE RECORDS SUMMARY | 2024-07-02 16:31 | XMS_ITS | Encounter Summary ---
Author Organization [facility] [place] [address] Care Team Providers Care Tin Tie Machine Operator Automatic Name Role Phone Mariluz Watts MD Primary Care Provider [phone] Encounter Details Date Type Department Care Team [...] Department Care Team ( Contact Info) Description 08/05/2024 8:20 AM EST Office Visit Dermatology at [facility] [address] [place] [address] Charu Martin MD [facility] [address] [place] [place] [address] 11/16/2024 1:00 PM EST Office [place] [address] Paula Harris PA [facility] [place] [address] 01/26/2025 9:50 AM EDT Appointment Mammography[place] [address] Jona Deutsch [facility] [place] [address] 01/26/2025 10:30 AM EDT Office Visit General Surgery at [place] [phone] Joan Deutsch [facility] [place] [address] documented as of this encounter Visit Diagnoses Not on filedocumented in this encounter Care Teams Tin Tie Machine Operator Automatic Relationship Specialty Start Date End Date Mariluz Watts MD [address] [place] [address] [address] [facility] 1 [place] [address] PCP - General 08/22/10 documented as of this encounter
--- OUTSIDE RECORDS SUMMARY | 2024-07-02 16:31 | XMS_ITS | Encounter Summary ---
Author Organization [facility] Address [facility] [place] [address] Care Team Providers Care Final Dressing Cutter Name Role Phone Mariluz Watts MD Primary Care Provider Encounter Details Date Type Department Care Team (Late st Contact Info) Description 06/24/[address] [facility] [address] [place] [phone] Cornell Hernández MD [facility] [place] [address] Social History Tobacco Use Types Packs/Day Years [...] encounter Miscellaneous Notes * Telephone Encounter - JujuLana grimaldo - 06/24/2024 9:45 AM EDT Patient called about a couple of issues. One was an appointment that I forwarded her to Eunice. The other is all follows from her [employer] message: Any other options for an appt for hair loss? I need a new prescription for my rosacea combo cream [facility]. I am out of refills. Thank. Diamond Gaming documented in this encounter Plan of Treatment Upcoming Encounters Date Type Department Care Team (Late st Contact Info) Description 08/05/2024 8:20 AM EST Office Visit Dermatology at [address] [place] [address] Charu Martin MD [facility] [place] [address] 11/16/2024 1:00 PM EST Office [place] [phone] Paula Harris PA [facility] [place] [address] 01/26/2025 9:50 AM EDT Appointment Mammography[place] [phone] Joan Deutsch APRN [facility] [place] [address] 01/26/2025 10:30 AM EDT Office [place] [phone] Joan Deutsch APRN [facility] [place] [address] documented as of this encounter Visit Diagnoses Not on filedocumented in this encounter Care Teams Final Dressing Cutter Relationship Specialty Start Date End Date Mariluz Watts MD [address] [place] [address] PCP - General 08/22/10 documented as of this encounter
--- OUTSIDE RECORDS SUMMARY | 2024-07-02 16:31 | XMS_ITS | Encounter Summary ---
Author Organization [facility] [address] Care Team Providers Care Event Coordinator Marketing And Sales Name Role Phone Mariluz Watts MD Primary Care Provider [phone] Encounter Details Date Type Department Care Team [...] 8:20 AM EST Office Visit Dermatology at [facility] [address] [place] [address] Charu Martin MD [facility] [place] [address] 11/16/2024 1:00 PM EST Office [place] [address] Paula Harris PA [facility] [place] [address] 01/26/2025 9:50 AM EDT Appointment Mammography[place] [address] Joan Deutsch [facility] [place] [address] 01/26/2025 10:30 AM EDT Office Visit General Surgery at [place] [phone] Joan Deutsch [facility] [place] [address] documented as of this encounter Visit Diagnoses Not on filedocumented in this encounter Care Teams Event Coordinator Marketing And Sales Relationship Specialty Start Date End Date Mariluz Wtats MD [address] [place] [address] [address] [facility] 1 [place] [address] PCP - General 08/22/10 documented as of this encounter
--- OUTSIDE RECORDS SUMMARY | 2024-07-02 16:31 | XMS_ITS | Encounter Summary ---
Author Organization [facility] [place] [address] Care Team Providers Care Porcelain Buildup Assistant Name Role Phone Mariluz Watts MD Primary Care Provider [phone] Encounter Details Date Type Department Care Team [...] 8:20 AM EST Office Visit Dermatology at [facility] [address] [place] [address] Charu Martin MD [facility] [place] [address] 11/16/2024 1:00 PM EST Office Visit [place] [address] Paula Harris PA [facility] [place] [address] 01/26/2025 9:50 AM EDT Appointment Mammography/[place] [address] Joan Deutsch [facility] [place] [address] 01/26/2025 10:30 AM EDT Office Visit General Surgery at [place] [phone] Joan Deutsch [facility] [place] [address] documented as of this encounter Visit Diagnoses Not on filedocumented in this encounter Care Teams Porcelain Buildup Assistant Relationship Specialty Start Date End Date Mariluz Watts MD [address] [place] [address] [address] [facility] 1 [place] [address] PCP - General 08/22/10 documented as of this encounter
--- OUTSIDE RECORDS SUMMARY | 2024-07-02 16:31 | XMS_ITS | Encounter Summary ---
Author Organization [facility] [place] [address] Care Team Providers Care Head Of Geography Name Role Phone Mariluz Watts MD Primary Care Provider [phone] Reason for Visit * Reason Comments Rosacea Encounter Details Date Type Department Care Team (Late st Contact Info) Description 04/23/2024 4:20 PM EDT Office Visit Dermatology at [facility] [address] [place] [address] Cornell Hernández MD [facility] [place] [address] Rosacea Social History Tobacco Use Types Packs/Day Years Used Date Smoking Tobacco: Former Cigarettes 1 3 0 09/30/1965 - 09/30/1968 Smokeless Tobacco: Never Alcohol Use Standard Drinks/Week Comments No 0 (1 standard drink = 0.6 oz pur e alcohol) [facility] Inpatient Questions Answer Date Recorded Does [...] cream - apply toface BID - Email: .KUBOO - Phone number: [phone] - Discussed redness is best treated with [...] RTC: Yearly for refills []Note routed to medical secretary []Recall placed in scheduling system []Appointment scheduled at checkout Scribe attestation: Thu Franco [facility] has performed the documentation for this encounter inthe presence of and acting as a scribe for Cornell Hernández MD. I performed the above scribed service and agree with the accuracy of the documentation in this encounter. Reviewed and signed by: Cornell Hernández MD Dermatology [facility] Staff hand funnel coater: José Manuel Kelly MD Dermatology [facility] * José Manuel Kelly MD - 04/23/2024 4:20 PM EDT I was the supervising physician working with the Dermatology resident, Cornell Hernández MD, in the care of this Dermatology patient in person. For the purposes of billing, the resident provided the care. I have reviewed the encounter note details and level of service. JOSÉ MANUEL KELLY MD Staff Martial Arts Instructor Department of Dermatology [facility] documented in this encounter Plan of Treatment Upcoming Encounters Date Type Department Care Team (Late st Contact Info) Description 08/05/2024 8:20 AM EST Office Visit Dermatology at [facility] [address] [place] [address] Charu Martin MD [facility] [place] [address] 11/16/2024 1:00 PM EST Office Visit General Surgery at [place] [phone] Paula Harris PA [facility] [place] [address] 01/26/2025 9:50 AM EDT Appointment Mammography/[place] [address] Joan Deutsch [facility] [place] [address] 01/26/2025 10:30 AM EDT Office Visit General Surgery at [place] [phone] Joan Deutsch [facility] [place] [place] [address] documented as of this encounter Visit Diagnoses Diagnosis Rosacea documented in this encounter Care Teams Head Of Geography Relationship Specialty Start Date End Date Mariluz Watts MD [address] [place] [address] [address] [place] [address] PCP - General 08/22/10 documented as of this encounter
--- OUTSIDE RECORDS SUMMARY | 2024-07-02 16:31 | XMS_ITS | Encounter Summary ---
Author Organization [facility] [place] [address] Care Team Providers Care Home Maker Name Role Phone Mariluz Watts MD Primary Care Provider [phone] Encounter Details Date Type Department Care Team [...] 8:20 AM EST Office Visit Dermatology at [facility] [address] [place] [address] Charu Martin MD [facility] [place] [address] 11/16/2024 1:00 PM EST Office [place] [address] Paula Harris PA [facility] [place] [address] 01/26/2025 9:50 AM EDT Appointment Mammography/[place] [address] Joan Deutsch [facility] [place] [address] 01/26/2025 10:30 AM EDT Office Visit General Surgery at [place] [phone] Joan Deutsch [facility] [place] [address] documented as of this encounter Visit Diagnoses Not on filedocumented in this encounter Care Teams Home Maker Relationship Specialty Start Date End Date Mariluz Watts MD [address] [place] [address] [address] [facility] 1 [place] [address] PCP - General 08/22/10 documented as of this encounter
--- OUTSIDE RECORDS SUMMARY | 2024-07-02 16:31 | XMS_ITS | Encounter Summary ---
Author Organization [facility] [place] [address] Care Team Providers Care Studio Hand Name Role Phone Mariluz Watts MD Primary Care Provider [phone] Encounter Details Date Type Department Care Team (Latest Contact Info) Description 01/21/2024 9:38 AM EDT - 01/21/2024 11:59 PM EDT Hospital Encounter Mammography/[place] [address] Joan Deutsch, GE [facility] [place] [address] Encounter for screening mammogram for breast cancer Discharge Disposition: Home Social History Tobacco Use Types Packs/Day Years Used Date Smoking Tobacco: Former Cigarettes 1 3 0 09/30/1965 - 09/30/1968 Smokeless Tobacco: Never Alcohol Use Standard Drinks/Week Comments No 0 (1 standard drink = 0.6 oz pur e alcohol) [facility] Inpatient Questions Answer Date Recorded Does [...] 8:20 AM EST Office Visit Dermatology at [facility] [address] [place] [address] Charu Martin MD [facility] [place] [address] 11/16/2024 1:00 PM EST Office [place] [address] Paula Harris PA [facility] [place] [address] 01/26/2025 9:50 AM EDT Appointment Mammography/[place] [phone] Joan Deutsch, [facility] [place] [address] 01/26/2025 10:30 AM EDT Office [place] [address] Joan Deutsch, [facility] [place] [address] documented as of this encounter Procedures Procedure Name Priority Date/Time Associated Diagnosis Comments MAMMO SCREENING CAD AND CINDY BILATERAL Routine 01/21/2024 10:07 AM EDT Encounter for screening mammogram for breast cancer documented in this encounter Results * Mammo Screening Cad and Cindy Bilateral (01/21/2024 10:07 AM EDT) WORKSTATION ID [id number] 2 RAD Anatomical Region Laterality Modality Breast [...] who have questions please contact the health childcare attendant that requested your imaging first. ? Electronically signed by: Beata Narayan MD, [facility] ([phone]), at 01/21/2024 10:32 AM Narrative 01/21/2024 10:32 [...] cancer documented in this encounter Care Teams Studio Hand Relationship Specialty Start Date End Date Mariluz Watts MD [address] [place] [address] PCP - General 08/22/10 documented as of this encounter
--- OUTSIDE RECORDS SUMMARY | 2024-07-02 16:31 | XMS_ITS | Encounter Summary ---
Author Organization [facility] [place] [address] Care Team Providers Care Mat Weaver Name Role Phone Mariluz Watts MD Primary Care Provider [phone] Reason for Visit * Reason Comments Skin Lesion Encounter Details Date Type Department Care Team (Late st Contact Info) Description 01/21/2024 8:40 AM EDT Office Visit Dermatology at [facility] [address] [place] [address] Meagan Franks MD [facility] [place] [address] Telangiectasia Social History Tobacco Use Types Packs/Day Years Used Date Smoking Tobacco: Former Cigarettes 1 3 0 09/30/1965 - 09/30/1968 Smokeless Tobacco: Never Alcohol Use Standard Drinks/Week Comments No 0 (1 standard drink = 0.6 oz pur e alcohol) [facility] Inpatient Questions Answer Date Recorded Does [...] for follow up nose [x]Note routed to special education secretary []Recall placed in scheduling system []Appointment scheduled at checkout Scribe attestation: JOSEFINA RUIZ LPN has performed the documentation for this encounter in the presence of and acting as a scribe for MEAGAN FRANKS MD. I performed the above scribed service and agree with the accuracy of the documentation in this encounter. Reviewed and signed by: MEAGAN FRANKS MD Dermatology [facility] documented in this encounter Plan of Treatment Upcoming Encounters Date Type Department Care Team (Late st Contact Info) Description 08/05/2024 8:20 AM EST Office Visit Dermatology at [facility] [address] [place] [address] Charu Martin MD [facility] [place] [address] 11/16/2024 1:00 PM EST Office Visit General Surgery at [place] [phone] Paula Harris PA [facility] [place] [address] 01/26/2025 9:50 AM EDT Appointment Mammography/[place] [phone] Joan Deutsch PRECISION LENS CENTERER AND EDGER [facility] [place] [address] 01/26/2025 10:30 AM EDT Office Visit General Surgery at [place] [phone] Joan Deutsch [employer] [facility] [place] [address] documented as of this encounter Visit Diagnoses Diagnosis Telangiectasia Other and unspecified capillary diseases documented in this encounter Care Teams Mat Weaver Relationship Specialty Start Date End Date Mariluz Watts MD [address] [place] [address] PCP - General 08/22/10 documented as of this encounter
--- OUTSIDE RECORDS SUMMARY | 2024-07-02 16:31 | XMS_ITS | Clinical Summary ---
Author Organization [facility] [place] [address] Care Team Providers Care Mortgage Loan Officer Name Role Phone Mariluz Watts MD Primary Care Provider [phone] Allergies Active Allergy Reactions Criticality Noted Date [...] into skin and subcutaneous tissues (CPT code 27253) left total hip arthroplasty, anterior Hueter approach with [place] table (CPT code 11899) Left hip intraoperative radiologic examination (CPT code 99215) Amicar infusion (5 g IV load, then 1g/hr x 3 hrs) Components Used: Nicole Accolade stem, size 4, 127 degrees Trident PSLcup, 52 mm, solid 32 mm ID, alumina 32-4 mm alumina head Hip pain 01/25/2012 S/P Right ARSLAN 03/06/2005 (Arcadio) 01/25/2012 Overview (01/28/2012): SURGERY DATE: 03/06/2005 ARCADIO STEINER, NICK Angel Surgical Procedure Performed: Right total hip arthroplasty, cementless, [id number] Components Used: Nicole Trident 52 shell outer [...] Encounters Date Type Department Care Team Description 06/24/2024 Telephone Dermatology at [place] [address] [place] [address] Cornell Hernández MD 05/18/2024 2:00 PM EDT Office [place] [address] Aria Higuera MD AIN III (anal intraepithelial neoplasia III) 05/17/2024 Travel 04/23/2024 4:20 PM EDT Office Visit Dermatology at [address] [place] [phone] Cornell Hernández MD Rosacea 04/23/2024 Travel from [...] [facility] [address] [place] [address] Charu Martin MD [facility] [place] [address] 11/16/2024 1:00 PM EST Office [place] [address] Paula Harris PA [facility] [place] [place] [address] 01/26/2025 9:50 AM EDT Appointment Mammography/[place] [address] Joan Deutsch APRN [facility] [place] [place] [address] 01/26/2025 10:30 AM EDT Office [place] [address] Joan Deutsch APRN [facility] [place] [place] [address] Health Maintenance Due Date Last Done Comments CT Colonography 1945 FIT DNA 1945 FIT 1945 Sigmoidoscopy 1945 Tetanus/Diphtheria/Pertussis Vaccines (3 - Td or Tdap) 02/01/2016 01/31/2006, 01/31/2006 Zoster vaccine (2 of 3) 11/25/2021 09/30/19 22, 08/30/2021, 07/31/2008 Pneumoccocal Vaccine: 65+ (2 of 2 - PCV) 11/29/2023 11/28/2022, 01/14/2014, 05/31/2008 Covid-19 Vaccine (5 - 2022-2 4 season) 2024 02/05/2023, 07/26/2022, 12/23/2020, Additional history exists Influenza (Flu) vaccine (1 o f 1 - Influenza standard series) 05/31/2024 06/30/2022, 07/13/2015, 06/12/2013, Additional history exists Colonoscopy 09/07/2025 09/07/2022, 05/2022, 03/26/2017, Additional history exists Colorectal Cancer Screening 09/07/2025 Sigmoidoscopy (10 year) with FIT yearly 09/07/2032 09/07/2022, 09/07/2022, 03/26/2017, Additional history exists Bone Density Scan 12/26/2036 12/26/2021, , 12/11/2016, Additional history exists Hepatitis C Screening Completed 11/28/2018 Breast Cancer screening Discontinued 01/21/20 24, 01/15/2023, 12/26/2021, Additional history exists Medical Devices Implanted Type Area Foreign Student Adviser Teacher Device Identifier Shelf Expiration Date Model / Serial / Lot Shell,Acetabu lar,Trident,P sl,S ([id number]) (Autoreq) - [id number] Implanted:Qty : 1 on 07/22/2012 at [facility] IMPLANTS DO NOT USE [email or web address] - [id number] [id number] E / / [id number] Insert,Agnesden t,Alumina,0,D eg,3 (7563231) (Autoreq) - [id number] Implanted:Qty : 1 on 07/22/2012 at [facility] IMPLANTS DO NOT USE [email or web address] - 6109 625-0T-32 E / / [id number] Stem,Fem,Acco lade,127,Deg, Neck (9924404) (Autoreq) - [id number] Implanted:Qty : 1 on 07/22/2012 at [facility] IMPLANTS DO NOT USE [email or web address] - 6109 [id number] / / [id number] Cable,Ss,Crmp ,1.3h010nb,St r (0413595) - [id number] Implanted:Qty : 1 on 07/22/2012 at [facility] IMPLANTS DO NOT USE SYNTHES - [id number] 02/27/2017 298.801.0 1S / / [id number] Head,Fem,Alum jose,V40,-4x32 mm (4858729) (Autoreq) - [id number] Implanted:Qty : 1 on 07/22/2012 at [facility] IMPLANTS DO NOT USE [email or web address] - [id number] 09/29/2015 6565-0-03 2 / / [id number] Stent,Contour 0bws93mi (1459799) - [id number] Implanted:Qty : 1 on 07/27/2015 by Rohan James MD at [facility] IMPLANTS Left: Ureter DO NOT USE [employer] - [id number] 03/20/2018 180-222 / / Explanted Type Area Foreign Student Adviser Teacher Device Identifier Shelf Expiration Date Model / Serial / Lot Stent,Contour- Vl,5kiv17-20rw ([id number]) - [id number] Implanted:Qty: 1 on 07/11/2015 by Jose D Chauhan III, MD at [facility] Explanted:Qty: 1 on 07/27/2015 by Rohan James MD at [facility] IMPLANTS DO NOT USE [employer] - [id number] 12/28/2017 180-156 / / [id number] Procedures Procedure Name Priority Date/Time Associated Diagnosis [...] 10:07 AM EDT) WORKSTATION ID [id number] 2 RAD Anatomical Region Laterality Modality Breast [...] have questions please contact the health care team assistant that requested your imaging first. ? Electronically signed by: Beata Narayan MD, [facility] ([phone]), at 01/21/2024 10:32 AM Narrative 01/21/2024 10:32 [...] and left breast. Stable appearance. Joan Deutsch DIRECTOR OF PROMOTIONS IMG MAMMO ORDERABLE S * COLONOSCOPY (09/07/2022 7:41 AM EST) COLONOSCOPY [facility] Procedure Date: 09/07/2022 7:41 AM ? Patient Name: Diamond Gaming ? Date of : 1945 ? Age: 76 ? Order #: [id number] ? Instrument Name: [id number] ? Procedure: ? Colonoscopy Indications: ? High [...] preparation was evaluated ? using the BBPS (Kevin Bowel ? Preparation Scale) with scores of: [...] were successfully placed (MR ? conditional). Clip straightener hand: Steris 11 and 16mm. ? There was [...] BMD measurements and plots are available in [facility] under the imaging tab. Paper copies will be sent to providers without E- access. If you have received this report without the data sheet and do not have access to [facility], please contact Radiology Program Coordinator Executive Education at [phone] Saturday thru Saturday 8am-4pm. Thank you for letting us participate in the care of this patient. ??If you are a health care provider and have any questions regarding this report, please contact the number below. ??For patients who have questions please contact the health care team assistant that requested your imaging first. ? Electronically signed by: Juan Antonio Ibarra MD, [facility] ([phone]), at 12/26/2021 12:42 PM Narrative 12/26/2021 12:42 [...] previous, 0.086 ??g/cm2 (9.9 %) increase. At [facility], least significant change for bone mineral density [...] previous, 0.086 g/cm2 (9.9 %) increase. At [facility], least significant change for bonemineral density measurements [...] copies will be sent to providers without E-DH access.If you have received this report without the data sheet and do not haveaccess to E-, please contact Radiology Program Coordinator Executive Education at [phone] Saturday thruFriday 8am-4pm. Thank you for letting us participate in the care of this patient. If youare a health care provider and have any questions regarding this report,please contact the number below. For patients who have questions please contactthe health care team assistant that requested your imaging first. Electronically signed by: Juan Antonio Ibarra MD, [facility] [place]([phone]), at 12/26/2021 12:42 PM Abrahan Merlos MD IMG DEXA ORDERABLES * Hepatitis C Antibody (11/28/2018 10:20 AM EST) Hepatitis C Antibody Negative Negative [facility] Blood specimen (specimen) Venous Draw / Unknown 11/28/2018 10:20 AM EST 11/28/2018 10:51 AM EST Narrative Resulting Agency Comment Spec In Lab Mariluz Watts MD CHEMISTRY ORDERABLES [facility] [place] [place] [address] from Last 3 Months or Most Recently Relevant to Health Maintenance Advance Directives Documents on File Type Date Recorded Patient Air Director Expl anation POLST/COLST (Order for Life Sustaining Treatment) 11/26/2019 1:52 PM Advance Directives and Living Will 10/28/2019 9:53 AM signed on 10/21/2019 Personal Air Director 12/12/2022 9:20 AM PERSONAL REP FORM FOR [...] Communication Ashley Smith Friend Health Care Agent Willy Gaming Child [facility] Health Care Agent [email or web address] Care Teams Mortgage Loan Officer Relationship Specialty Start Date End Date Mariluz Watts MD [address] [place] [address] PCP - General 08/22/10
--- OUTSIDE RECORDS SUMMARY | 2024-07-02 16:31 | XMS_ITS | Encounter Summary ---
Author Organization [facility] [place] [address] Care Team Providers Care Multi Mission Helicopter Aircrewman Name Role Phone Mariluz Watts MD Primary Care Provider [phone] Encounter Details Date Type Department Care Team (Latest Contact Info) Description 05/18/2024 2:00 PM EDT Office Visit [place] [address] Aria Higuera MD [facility] [place] [address] AIN III (anal intraepithelial neoplasia III) Social History Tobacco Use Types Packs/Day Years Used Date Smoking Tobacco: Former Cigarettes 1 3 0 09/30/1965 - 09/30/1968 Smokeless Tobacco: Never Alcohol Use Standard Drinks/Week Comments No 0 (1 standard drink = 0.6 oz pur e alcohol) [facility] Inpatient Questions Answer Date Recorded [...] Division of Colon and Rectal Surgery ~ [facility] PCP:Mariluz Watts MD HPI: Diamond Gaming 78 [...] GI bleeding 03/25/2011 Hypermobility syndrome Kidney disease [facility]DC current use of opiate analgesic Motion sickness [...] Chief, Division of Colon and Rectal Surgery [facility] Pager [phone] 05/18/2024 1:53 PM documented in this encounter Plan of Treatment Upcoming Encounters Date Type Department Care Team (Late st Contact Info) Description 08/05/2024 8:20 AM EST Office Visit Dermatology at [facility] [address] [place] [address] Charu Martin MD [facility] [place] [address] 11/16/2024 1:00 PM EST Office Visit [place] [address] Paula Harris PA [facility] [place] [address] 01/26/2025 9:50 AM EDT Appointment Mammography/[place] [address] Joan Deutsch APRN [facility] [place] [address] 01/26/2025 10:30 AM EDT Office Visit [place] [address] Joan Deutsch APRN [facility] [address] documented as of this encounter Visit Diagnoses Diagnosis 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
--- OUTSIDE RECORDS SUMMARY | 2024-07-02 16:32 | XMS_ITS | Encounter Summary ---
[place] [address] Care Team Providers Care Mergers And Acquisitions Manager Name Role Phone Mariluz Watts MD Primary Care Provider [phone] Encounter Details Date Type Department Care Team (Late st Contact Info) Description 01/15/2023 1:40 PM EDT Office [place] [address] Joan Deutsch APRN [facility] [place] [address] Encounter for screening mammogram for breast cancer; [...] carcinoma with lobular features Tumor Grade: Intermediate Ndlpmf-Qojej-Byqwgazkcb Score: 7 Tubular Differentiation: 3 Mitotic Rate: [...] sentinel nodes: 2 (Specimen A - Right Cranbury node) No. positive for carcinoma: 1 (H&E) No. with IHC (+) cells only: 0 (cells not seen by H&E, see Note*) No. negative for carcinoma: 1 (both H&E and IHC For positive nodes: Largest kristi deposit 0.2 cm Extranodal extension Absent Estrogen/Progestin receptors: Performed on blocks C2 and C11 ER immunoreactivity: Positive (see Diagnostic hanna*) ME immunoreactivity: Positive (see Diagnostic hanna*) HER2/shonda expression [...] a recent colonoscopy. She is going to [place] for a consult as she does not [...] 8:20 AM EST Office Visit Dermatology at [place] [address] [place] [address] Charu Martin MD [facility] [place] [address] 11/16/2024 1:00 PM EST Office Visit General Surgery at [place] [phone] Paula Harris PA [facility] [place] [address] 01/26/2025 9:50 AM EDT Appointment Mammography/DXA at [place] [phone] Joan Deutsch, GE [facility] [place] [address] 01/26/2025 10:30 AM EDT Office Visit General Surgery at [place] [phone] Joan Deutsch, GE [facility] [place] [address] documented as of this encounter Results * Mammo Screening Cad and Irvin Bilateral (01/21/2024 10:07 AM EDT) C8 [employer] WORKSTATION ID [id number] DH RAD Anatomical Region Laterality Modality [...] questions please contact the health insurance healthcare consultant that requested your imaging first. ? [...] and left breast. Stable appearance. Joan Deutsch AUDIO VISUAL DIRECTOR IMG MAMMO ORDERABLE S documented in this encounter Visit Diagnoses Diagnosis Encounter for screening mammogram for breast cancer History of breast cancer Personal history of malignant neoplasm of breast Encounter for screening mammogram for breast cancer documented in this encounter Care Teams Mergers And Acquisitions Manager Relationship Specialty Start Date End Date Mariluz Watts MD [address] [place] [address] PCP - General 08/22/10 documented as of this encounter
--- OUTSIDE RECORDS SUMMARY | 2024-07-02 16:32 | XMS_ITS | Encounter Summary ---
Author Organization [facility] [place] [address] Care Team Providers Care Leverman Name Role Phone Mariluz Watts MD Primary Care Provider [phone] Encounter Details Date Type Department Care Team (Latest Contact Info) Description 03/13/2023 11:00 AM EDT TH Visit (TeleHealth) [place] [address] Paula Harris PA [facility] [place] [address] Anal condyloma; HPV (human papilloma virus) anogenital [...] Colon and Rectal Surgery ~ [facility] HPI: Diamond Gaming is a [...] past. [facility] who diagnosed her with this (Dr. Vilallba). She now currently sees Dr. De La Cruz.Has received preop TXA with prior orthopedic surgery. Patient has diagnosis of atrial fibrillation,saw cardiology at [facility], she is now on daily Eliquis. Review [...] hypermobility disorder. She has seen cardiology at [facility], who has recentlystarted her on chronic anticoagulation [...] for surgery on 04/16. Paula Harris PA-C, [facility] Instructor of Surgery Division of Colon and Rectal Surgery [facility] Pager [phone] 1:02 PM 03/13/23 \ documented in this encounter Plan of Treatment Upcoming Encounters Date Type Department Care Team (Late st Contact Info) Description 08/05/2024 8:20 AM EST Office Visit Dermatology at [facility] [address] [place] [address] Charu Martin MD [facility] [place] [address] 11/16/2024 1:00 PM EST Office [place] [address] Paula Harris PA [facility] [place] [address] 01/26/2025 9:50 AM EDT Appointment Mammography/[place] [address] Joan Deutsch, GE [facility] [place] [address] 01/26/2025 10:30 AM EDT Office Visit General Surgery at [place] [phone] Joan Deutsch, [facility] [place] [address] documented as of this encounter Visit Diagnoses Diagnosis 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 Human papillomavirus in conditions classified elsewhere and of unspecified site Bleeding disorder Unspecified hemorrhagic conditions Postoperative anemia due to acute blood loss Acute posthemorrhagic anemia Atrial fibrillation, unspecified type Chronic anticoagulation Encounter for long-term (current) use of anticoagulants documented in this encounter Care Teams Leverman Relationship Specialty Start Date End Date Mariluz Watts MD [address] [place] [address] [address] [facility] [address] [place] [address] PCP - General 08/22/10 documented as of this encounter
--- OUTSIDE RECORDS SUMMARY | 2024-07-02 16:32 | XMS_ITS | Encounter Summary ---
Author Organization [facility] [place] [address] Care Team Providers Care Ski Technician Name Role Phone Mariluz Watts MD Primary Care Provider [phone] Encounter Details Date Type Department Care Team (Late st Contact Info) Description 04/16/2023 5:08 PM EDT Anesthesia Event [place] [address] Aide Raymundo MD [facility] DR [place] [address] Debbi Raza MD [facility] [place] [address] Anesthesia Record Procedure Summary Procedure Name Responsible [...] 1231; metacarpal vein (top of hand), left; gzew-rqv-qjeivf catheter system; Anatomical Landmarks; US Not Used; [...] Procedure Summary Date: 04/16/23 Room / Location: [facility] OR [address] [place] [address] MAIN OR Anesthesia Start: 1707 Anesthesia Stop: 1830 Procedures: ANORECTAL EXAM, REQUIRING ANESTHESIA, DIAGNOSTIC (WRVU 1.8) (Anus) ANAL LESION DESTRUCTION, SIMPLE, ELECTRODESICCATION (WRVU 1.91) (Perineum) HEMORRHOIDECTOMY, INTERNAL & EXTERNAL, SIMPLE (WRVU 4.96) (Perineum) Diagnosis: (hemorrhoidectomy/hpv) Surgeons: Aria Higuera MD Responsible Provider: Aide Raymundo MD Anesthesia Type: general ASA Status: 3 All Anesthesia Providers: Anesthesiologist: Aide Raymundo MD; Ranjana Monson MD GROCERY CLERK STOCKING: Ora Araujo CRNA; Hany Piper CRNA Vitals Value Taken Time BP 129/78 04/16/23 1845 Temp Pulse Resp SpO2 93 % 04/16/23 1848 Pain Level Vitals shown include unvalidated device data. Patient Location: PACU/[facility] Level of Consciousness: Conscious but Sleepy [...] general, with a(n) intravenous induction Please see [facility] anesthesia note from 04/05/23 in preparation [...] found during colonoscopy, evaluation by cardiology at [facility]. with MAICO Vasc score of 3, recommendation made for elequis which she is taking. Echo 10/24/2022 shows EF 55-60%m No WMA, mod dilation of LA, mild TR, mild AV sclerosis. Patient has received instruction to stop elequis 3 days prior to procedure Denies stroke, HTN, [place] Pulmonary: Remote smoking history, quit 1968, .5ppd [...] 8:20 AM EST Office Visit Dermatology at [place] [address] [place] [address] Charu Martin MD [facility] DR CONG [place] [address] 11/16/2024 1:00 PM EST Office Visit [place] [address] Paula Harris PA [facility] [place] [address] 01/26/2025 9:50 AM EDT Appointment Mammography/[place] [address] Joan Deutsch APRN [facility] [place] [address] 01/26/2025 10:30 AM EDT Office Visit [place] [address] Joan Deutsch, GE [facility] [place] [address] documented as of this encounter Visit Diagnoses [...] mg documented in this encounter Care Teams Ski Technician Relationship Specialty Start Date End Date Mariluz Watts MD [address] [place] [address] [address] [facility] 1 [place] [address] PCP - General 08/22/10 documented as of this encounter
--- OUTSIDE RECORDS SUMMARY | 2024-07-02 16:32 | XMS_ITS | Encounter Summary ---
Author Organization [facility] [place] [address] Care Team Providers Care Relationship Manager Name Role Phone Mariluz Watts MD Primary Care Provider [phone] Encounter Details Date Type Department Care Team (Late st Contact Info) Description 07/11/2023 Orders Only Dermatology at [facility] [address] [place] [address] Cornell Hernández MD [facility] [place] [address] Rosacea Social History Tobacco Use Types Packs/Day [...] 8:20 AM EST Office Visit Dermatology at [facility] [address] [place] [address] Charu Martin MD [facility] [place] [address] 11/16/2024 1:00 PM EST Office Visit General Surgery at [place] [phone] Paula Harris PA [facility] [place] [place] [address] 01/26/2025 9:50 AM EDT Appointment Mammography/[place] [address] Joan Deutsch APRN [facility] [place] [address] 01/26/2025 10:30 AM EDT Office Visit [place] [address] Joan Deutsch APRN [facility] [place] [address] documented as of this encounter Visit Diagnoses Diagnosis Rosacea documented in this encounter Care Teams Relationship Manager Relationship Specialty Start Date End Date Mariluz Watts MD [address] [place] [address] [address] [facility] 1 [place] [address] PCP - General 08/22/10 documented as of this encounter
--- OUTSIDE RECORDS SUMMARY | 2024-07-02 16:32 | XMS_ITS | Encounter Summary ---
Author Organization [facility] [place] [address] Care Team Providers Care Vice President Of Customer Service Name Role Phone Mariluz Watts MD Primary Care Provider [phone] Encounter Details Date Type Department Care Team (Latest Contact Info) Description 04/16/2023 11:54 AM EDT - 04/16/2023 8:05 PM EDT Hospital Encounter [place] [address] [facility] [place] [address] Discharge Disposition: Home Social History Tobacco Use Types Packs/Day Years Used Date Smoking Tobacco: Former Cigarettes 1 3 0 09/30/1965 - 09/30/1968 Smokeless Tobacco: Never Alcohol Use Standard Drinks/Week Comments No 0 (1 standard drink = 0.6 oz pur e alcohol) [facility] Inpatient Questions Answer Date Recorded [...] 15 minutes 4X/day. Pain medications Please take qdpi-yct-koudjql pain medications for post-operative discomfort.(Please continue to [...] Center 05/20/2023 2:00 PM Aria Higuera MD [facility] SURG [facility] 07/08/2023 10:20 AM Cornell Hernández MD [facility] Colon [facility] Rectal Surgery, [place] [address] documented in this encounter Medications at Time [...] past. [facility] who diagnosed her with this (Dr. Villalba). She now currently sees Dr. De La Cruz.Has received preop TXA with prior orthopedic surgery. Patient has diagnosis of atrial fibrillation,saw cardiology at [facility], she is now on daily Eliquis. Stopped [...] Operative Note Patient Name: Diamond Gaming : [id number] MR#: [id number] Case Date: 04/16/2023 Surgeon: Surgeon(s) and Role: [...] LEFT posterior hpv eD-H Order Id number [id number] SPECIMEN TO PATHOLOGY hemorrhoidectomy/hpv interior RIGHT posterior [...] Higuera MD - 04/16/2023 5:34 PM EDT [facility] Operative Note Patient Name: Diamond Gaming : [id number] MR#: [id number] Case Date: 04/16/2023 Surgeon: Surgeon(s) and Role: [...] LEFT posterior hpv eD-H Order Id number [id number] SPECIMEN TO PATHOLOGY hemorrhoidectomy/hpv interior RIGHT posterior [...] 8:20 AM EST Office Visit Dermatology at [address] [address] [facility] [place] [address] 11/16/2024 1:00 PM EST Office [place] [address] [facility] [place] [address] 01/26/2025 9:50 AM EDT Appointment Mammography/[place] [address] [facility] [place] [address] 01/26/2025 10:30 AM EDT Office [place] [address] [facility] [place] [address] documented as of this encounter Procedures Procedure Name Priority Date/Time Associated Diagnosis Comments SPECIMEN TO PATHOLOGY Routine 04/16/2023 6:01 PM EDT SURGICAL PATHOLOGY REPORT Routine 2022 5:47 PM EDT SPECIMEN TO PATHOLOGY Routine 04/16/2023 5:47 PM EDT Hemorrhoidectomy, Int/Ext, Simple (82006) 04/16/2023 5:07 PM EDT hemorrhoidectomy/ hpv Destruction Lesion Anus Simple Electrodesiccation (91550) 04/16/2023 5:07 PM EDT hemorrhoidectomy/ hpv Surg Diagnostic Exam, Anorectal ([id number]) 04/16/2023 5:07 PM EDT hemorrhoidectomy/ hpv documented in this encounter Results * Specimen to Pathology (04/16/2023 6:01 PM EDT) AP Specimen 04/16/2023 6:01 PM EDT 04/16/2023 6:01 PM EDT Narrative [facility] - 04/16/2023 6:01 PM EDT Specimen requisition ordered. ??Separate Pathology report to follow Aria Higuera MD PATHOLOGY/CYTOLOGY O RDERALIANA [facility] [place] [address] * Surgical Pathology Report (04/16/2023 5:47 PM EDT) Final Diagnosis [id number] ? Location: [facility]; [facility]; A The signing pathologist has (i) examined [...] Condyloma acuminatum. - Hemorrhoid. Electronically signed by: ?Lazaro STEINER, Uyen Dotson Verified: ??04/23/2023 16:25 ??Pathologist Performed at: ??-[facility] Dept. of Pathology, [place] [address] Medical Office Manager: Uyen Willis MD, FCAP, ??CLIA Certificate: [id number] ADDITIONAL STUDIES Whole slide scan: A1 SPECIMEN(S) [...] vasculature. Sections/Processin g: Inked and serially sectioned. Time Cycle Operator sections in 1 cassette labeled B1. ??vmj 04/23/2023 4:25 PM EDT [facility] ANAL STRUCTURE / Unknown 04/16/2023 5:47 PM EDT 04/16/2023 5:47 PM EDT ANAL STRUCTURE / Unknown 04/16/2023 5:47 PM EDT 04/16/2023 5:47 PM EDT Aria Higuera MD PATHOLOGY/CYTOLOGY O RDERABLES [facility] [place] [address] [facility] [place] [address] * Specimen to Pathology (04/16/2023 5:47 PM EDT) AP Specimen 04/16/2023 5:47 PM EDT 04/16/2023 5:47 PM EDT Narrative [facility] - 04/16/2023 5:47 PM EDT Specimen requisition ordered. ??Separate Pathology report to follow Aria Higuera MD PATHOLOGY/CYTOLOGY O JOSELUIS [facility] [place] [address] documented in this encounter Visit Diagnoses Not [...] PRN, Starting on Sat04/16/23 at 1823, Until 7/18/23 at 2217, Intra-Operative (Intra-Procedure), Routine 1823 (Given - Provid er: Aria Higuera MD) oxyCODONE (Roxicodone) tablet 5 mg 5 mg, Oral, EVERY 4 HOURS PRN, Starting on Sat04/16/23 at 1823, Until Sat04/16/23 at 2217, Pain, Routine 1905 (Given - Provid er: Tiffany Morales RN) documented in this encounter Care Teams Vice President Of Customer Service Relationship Specialty Start Date End Date Mariluz Watts MD [address] [place] [address] [address] [facility] 1 [place] [address] PCP - General 08/22/10 documented as of this encounter
--- OUTSIDE RECORDS SUMMARY | 2024-07-02 16:32 | XMS_ITS | Encounter Summary ---
Author Organization [facility] [place] [address] Care Team Providers Care Bander Name Role Phone Mariluz Watts MD Primary Care Provider [phone] Encounter Details Date Type Department Care Team (Late st Contact Info) Description 02/12/2023 9:20 AM EDT Office Visit Dermatology at [place] [address] [place] [address] Cornell Hernández MD [facility] DR [place] [place] [address] Rosacea; Sebaceous hyperplasia of face; Telangiectasias Social [...] next visit or switching to compounded azelaic lznp-dmlaatyqwikbf-fthcxssegq cream from [employer] [facility]. - Briefly discussed [...] 1-2 months for rosacea []Note routed to administrative secretary []Recall placed in scheduling system [x]Appointment scheduled at checkout Scribe attestation: Danyel Anna Schafer has performed the documentation for this encounter in the presence of and acting as a scribe for Cornell Hernández MD. I performed the above scribed service and agree with the accuracy of the documentation in this encounter. Reviewed and signed by: Cornell Hernández MD Dermatology [facility] Patient seen and evaluated with staff outside rigger: Gardenia Cruz MD Dermatology [facility] * Gardenia Cruz MD - 02/12/2023 [...] 8:20 AM EST Office Visit Dermatology at [facility] [address] [place] [address] Chrau Martin MD [facility] [place] [address] 11/16/2024 1:00 PM EST Office Visit General Surgery at [place] [address] Paula Harris PA [facility] [place] [address] 01/26/2025 9:50 AM EDT Appointment Mammography/[place] [address] Joan Deutsch, GE [facility] [place] [address] 01/26/2025 10:30 AM EDT Office Visit [place] [address] Joan Deutsch, GE [facility] [place] [address] documented as of this encounter Visit Diagnoses Diagnosis Rosacea Sebaceous hyperplasia of face Other specified disease of sebaceous glands Telangiectasias Other and unspecified capillary diseases documented in this encounter Care Teams Bander Relationship Specialty Start Date End Date Mariluz Watts MD [address] [place] [address] PCP - General 08/22/10 documented as of this encounter
--- OUTSIDE RECORDS SUMMARY | 2024-07-02 16:32 | XMS_ITS | Encounter Summary ---
Author Organization [facility] [place] [address] Care Team Providers Care Channel Lip Stiffener Insoles Name Role Phone Mariluz Watts MD Primary Care Provider [phone] Reason for Visit * Reason Comments Follow Up Surgery Encounter Details Date Type Department Care Team (Latest Contact Info) Description 05/20/2023 2:00 PM EDT Office [place] [address] Aria Higuera MD [facility] [place] [address] AIN III (anal intraepithelial neoplasia III) Social History Tobacco Use Types Packs/Day Years Used Date Smoking Tobacco: Former Cigarettes 1 3 0 09/30/1965 - 09/30/1968 Smokeless Tobacco: Never Alcohol Use Standard Drinks/Week Comments No 0 (1 standard drink = 0.6 oz pur e alcohol) [facility] Inpatient Questions Answer Date Recorded Does [...] and Rectal Surgery ~ [facility] PCP:Mariluz Watts MD HPI: Diamond Gaming [...] Dotson Verified: 04/23/2023 16:25 Pathologist Performed at: -[facility] Dept. of Pathology, [place] [address] Entertainer Or Variety Artist: Uyen Willis MD, FCAP, CLIA Certificate: [id number] ADDITIONAL STUDIES Whole slide scan: A1 Significant past medical history Patient has complex past medical history. She reports that she was diagnosed with a variant of Marfan syndrome, hypermobility syndrome. 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 She was reportedly seeing hematology here at [facility] in 2009 who diagnosed her with [...] urology here at as well as in [place]. 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 current use of opiate analgesic Motion sickness [...] Division of Colon and Rectal Surgery [facility] Pager [phone] 05/20/2023 2:01 PM documented in this encounter Plan of Treatment Upcoming Encounters Date Type Department Care Team (Late st Contact Info) Description 08/05/2024 8:20 AM EST Office Visit Dermatology at [facility] [address] [place] [address] Charu Martin MD [facility] DR [place] [address] 11/16/2024 1:00 PM EST Office [place] [address] Paula Harris PA [facility] [place] [address] 01/26/2025 9:50 AM EDT Appointment Mammography/[place] [address] Joan Deutsch CORN SHREDDER [facility] [place] [address] 01/26/2025 10:30 AM EDT Office [place] [address] Joan Deutsch APRN [facility] [place] [address] documented as of this encounter Visit Diagnoses Diagnosis 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
--- OUTSIDE RECORDS SUMMARY | 2024-07-02 16:32 | XMS_ITS | Encounter Summary ---
Author Organization [facility] [place] [address] Care Team Providers Care Labor Relations Worker Name Role Phone Mariluz Watts MD Primary Care Provider [phone] Encounter Details Date Type Department Care Team (Late st Contact Info) Description 04/05/2023 9:40 AM EDT Office Visit Dermatology at [facility] [address] [place] [address] Cornell Hernández MD [facility] DR [place] [address] Rosacea Social History Tobacco Use Types Packs/Day [...] next visit or switching to compounded azelaic enxz-crszwintsaxrk-cptvlaeebm cream from [facility]. - Briefly discussed the option of treating cosmetically with [employer]. Patient is not interested at this time. Figure 1 Photo(s) taken and charted with patient's verbal consent. Other: N/A RTC: 3 months for Rosacea follow up. []Note routed to clerical secretary []Recall placed in scheduling system [x]Appointment scheduled at checkout Scribe attestation: TIMUR Leal has performed the documentation for this encounter in the presence of and acting as a scribe for Cornell Hernández MD. I performed the above scribed service and agree with the accuracy of the documentation in this encounter. Reviewed and signed by: Cornell Hernández MD Dermatology [facility] Patient seen and evaluated with staff lawn mower sharpener: Cande Foster MD Dermatology [facility] * Cande Foster MD - [...] physician's note. Cande Foster MD Staff Physician [facility] D[facility] documented in this encounter Plan of Treatment Upcoming Encounters Date Type Department Care Team (Late st Contact Info) Description 08/05/2024 8:20 AM EST Office Visit Dermatology at [facility] [address] [place] [address] Charu Martin MD [facility] DR [place]G [place] [address] 11/16/2024 1:00 PM EST Office Visit [place] [address] Paula Harris PA [facility] [place] [address] 01/26/2025 9:50 AM EDT Appointment Mammography/DXA at [place] [phone] Joan Deutsch, GE [facility] [place] [address] 01/26/2025 10:30 AM EDT Office Visit General Surgery at [place] [phone] Joan Deutsch APRN [facility] [place] [address] documented as of this encounter Visit Diagnoses Diagnosis Rosacea documented in this encounter Care Teams Labor Relations Worker Relationship Specialty Start Date End Date Mariluz Watts MD [address] [place] [address] [address] [facility] 1 [place] [address] PCP - General 08/22/10 documented as of this encounter
--- OUTSIDE RECORDS SUMMARY | 2024-07-02 16:32 | XMS_ITS | Encounter Summary ---
Author Organization [facility] [place] [address] Care Team Providers Care Station Engineer Chief Name Role Phone Mariluz Watts MD Primary Care Provider [phone] Encounter Details Date Type Department Care Team [...] 8:20 AM EST Office Visit Dermatology at [facility] [address] [place] [address] Charu Martin MD [facility] [place] [address] 11/16/2024 1:00 PM EST Office [place] [address] Paula Harris PA [facility] [place] [address] 01/26/2025 9:50 AM EDT Appointment Mammography/[place] [address] Joan Deutsch [facility] [place] [address] 01/26/2025 10:30 AM EDT Office Visit General Surgery at [place] [phone] Joan Deutsch [facility] [place] [address] documented as of this encounter Visit Diagnoses Not on filedocumented in this encounter Care Teams Station Engineer Chief Relationship Specialty Start Date End Date Mariluz Watts MD [address] [place] [address] [address] [facility] 1 [place] [address] PCP - General 08/22/10 documented as of this encounter
--- OUTSIDE RECORDS SUMMARY | 2024-07-02 16:32 | XMS_ITS | Encounter Summary ---
Author Organization [facility] [place] [address] Care Team Providers Care Irrigationist Name Role Phone Mariluz Watts MD Primary Care Provider [phone] Encounter Details Date Type Department Care Team [...] 8:20 AM EST Office Visit Dermatology at [facility] [address] [place] [address] Charu Martin MD [facility] [place] [address] 11/16/2024 1:00 PM EST Office [place] [address] Paula Harris, PA [facility] [place] [address] 01/26/2025 9:50 AM EDT Appointment Mammography/[place] [address] Joan Deutsch, [facility] [place] [address] 01/26/2025 10:30 AM EDT Office Visit General Surgery at [place] [phone] Joan Deutsch, [facility] [place] [address] documented as of this encounter Visit Diagnoses Not on filedocumented in this encounter Care Teams Irrigationist Relationship Specialty Start Date End Date Mariluz Watts MD [address] [place] [address] PCP - General 08/22/10 documented as of this encounter
--- OUTSIDE RECORDS SUMMARY | 2024-07-02 16:32 | XMS_ITS | Encounter Summary ---
Author Organization [facility] [place] [address] Care Team Providers Care Garment Mender Name Role Phone Mariluz Watts MD Primary Care Provider [phone] Encounter Details Date Type Department Care Team [...] 8:20 AM EST Office Visit Dermatology at [facility] [address] [place] [address] Charu Martin MD [facility] DR [place] [address] 11/16/2024 1:00 PM EST Office Visit [place] [address] Paula Harris, PA [facility] [place] [address] 01/26/2025 9:50 AM EDT Appointment Mammography/[place] [address] Joan Deutsch, [facility] [place] [address] 01/26/2025 10:30 AM EDT Office Visit General Surgery at [place] [phone] Joan Deutsch, [facility] [place] [address] documented as of this encounter Visit Diagnoses Not on filedocumented in this encounter Care Teams Garment Mender Relationship Specialty Start Date End Date Mariluz Watts MD [address] [place] [address] PCP - General 08/22/10 documented as of this encounter
--- OUTSIDE RECORDS SUMMARY | 2024-07-02 16:32 | XMS_ITS | Encounter Summary ---
Author Organization [facility] [place] [address] Care Team Providers Care Rn Lpn Cna Name Role Phone Mariluz Watts MD Primary Care Provider Reason for Visit * Reason Comments Rosacea Encounter Details Date Type Department Care Team (Late st Contact Info) Description 07/08/2023 10:20 AM EDT Office Visit Dermatology at [facility] [address] [place] [address] Cornell Hernández MD [facility] [place] [address] Michaelia; Rosacea Social History Tobacco Use Types Packs/Day Years Used Date Smoking Tobacco: Former Cigarettes 1 3 0 09/30/1965 - 09/30/1968 Smokeless Tobacco: Never Alcohol Use Standard Drinks/Week Comments No 0 (1 standard drink = 0.6 oz pur e alcohol) [facility] Inpatient Questions Answer Date Recorded Does [...] for Rosacea follow up []Note routed to sales secretary []Recall placed in scheduling system [x]Appointment scheduled at checkout Scribe attestation: TIMUR Mcgowan has performed the documentation for this encounter inthe presence of and acting as a scribe for Cornell Hernández MD. I performed the above scribed service and agree with the accuracy of the documentation in this encounter. Reviewed and signed by: Cornell Hernández MD [facility] Patient seen and evaluated with staff corporate wellness coordinator: Jaquelin Gonsalves MD [facility] * Stan Gonsalves MD - 07/08/2023 10:20 [...] them as documented. STAN GONSALVES MD Staff Human Resource Intern Department of Dermatology [facility] documented in this encounter Plan of Treatment Upcoming Encounters Date Type Department Care Team (Late st Contact Info) Description 08/05/2024 8:20 AM EST Office Visit Dermatology at [address] [address] Charu Martin MD [facility] [place] [address] 11/16/2024 1:00 PM EST Office Visit [place] [address] Paula Harris PA [facility] [place] [address] 01/26/2025 9:50 AM EDT Appointment Mammography/[place] [address] Kovatch, Joan L, [facility] [place] [address] 01/26/2025 10:30 AM EDT Office Visit [place] [address] Joan Deutsch [facility] [place] [address] documented as of this encounter Visit Diagnoses Diagnosis Milia Sebaceous cyst Rosacea documented in this encounter Care Teams Rn Lpn Cna Relationship Specialty Start Date End Date Mariluz Watts MD [address] [place] [address] PCP - General 08/22/10 documented as of this encounter
--- OUTSIDE RECORDS SUMMARY | 2024-07-02 16:32 | XMS_ITS | Encounter Summary ---
[facility] Organization [facility] [place] [address] Care Team Providers Care Supervisor Sawmill Name Role Phone Mariluz Watts MD Primary Care Provider [phone] Reason for Visit * Reason Onset Date Comments Prior Authorization 07/31/2023 Ivermectin Encounter Details Date Type Department Care Team (Late st Contact Info) Description 07/31/2023 Telephone Dermatology at [facility] [address] [place] [address] Selam Lao, [facility] Prior Authorization (Ivermectin) Social History Tobacco Use [...] Date: 07/01/2023 End Date: 07/30/2024 Case/Reference #: [id number] Approval Letter will be scanned into media once received. * Telephone Encounter - Selam Lao CMA - 07/31/2023 12:40 PM EDT PA Submitted Submitted Date: Submitted Date: 07/31/2023 Medication Prior Authorization Patient: Diamond Gaming Patient : 1945 Insurance Company: [employer] Sent via: GrownOut Bajwa: [id number] Physician: Cornell Hernández MD Medication Requested: ivermectin [...] 8:20 AM EST Office Visit Dermatology at [facility] [address] [address] Charu Martin MD [facility] [address] [place] [address] 11/16/2024 1:00 PM EST Office Visit General Surgery at [place] [phone] Paula Harris PA [facility] [place] [address] 01/26/2025 9:50 AM EDT Appointment Mammography/[place] [address] Joan Deutsch APRN [facility] [place] [address] 01/26/2025 10:30 AM EDT Office Visit [place] [address] Joan Deutsch APRN [facility] [place] [address] documented as of this encounter Visit Diagnoses Not on filedocumented in this encounter Care Teams Supervisor Sawmill Relationship Specialty Start Date End Date Mariluz Watts MD [address] [place] [address] [address] [facility] [place] [address] PCP - General 08/22/10 documented as of this encounter
--- OUTSIDE RECORDS SUMMARY | 2024-07-02 16:32 | XMS_ITS | Encounter Summary ---
Author Organization [facility] [place] [address] Care Team Providers Care Chemistry Faculty Member Name Role Phone Mariluz Watts MD Primary Care Provider [phone] Encounter Details Date Type Department Care Team [...] 8:20 AM EST Office Visit Dermatology at [facility] [address] [place] [address] Charu Martin MD [facility] [place] [address] 11/16/2024 1:00 PM EST Office [place] [address] Paula Harris PA [facility] [place] [address] 01/26/2025 9:50 AM EDT Appointment Mammography/[place] [address] Joan Deutsch [facility] [place] [address] 01/26/2025 10:30 AM EDT Office Visit General Surgery at [place] [phone] Joan Deutsch [facility] [place] [address] documented as of this encounter Visit Diagnoses Not on filedocumented in this encounter Care Teams Chemistry Faculty Member Relationship Specialty Start Date End Date Mariluz Watts MD [address] [place] [address] [address] [facility] 1 [place] [address] PCP - General 08/22/10 documented as of this encounter
--- OUTSIDE RECORDS SUMMARY | 2024-07-02 16:32 | XMS_ITS | Encounter Summary ---
[place] [address] Care Team Providers Care Housecalls Nurse Name Role Phone Mariluz Watts MD Primary Care Provider [phone] Encounter Details Date Type Department Care Team (Late st Contact Info) Description 01/15/2023 1:09 PM EDT - 01/15/2023 1:59 PM EDT Hospital Encounter Mammography/[place] [address] Mariluz Watts MD [address] [place] [address] [address] [place] [address] Visit for screening mammogram Discharge Disposition: Home [...] 8:20 AM EST Office Visit Dermatology at [address] [address] Charu Martin MD [facility] DR [place] [address] 11/16/2024 1:00 PM EST Office [place] [address] Paula Harris PA [facility] [place] [address] 01/26/2025 9:50 AM EDT Appointment Mammography/[place] [address] Joan Deutsch APRN [facility] [place] [address] 01/26/2025 10:30 AM EDT Office [place] [address] Joan Deutsch, GE [facility] [place] [address] documented as of this encounter Procedures Procedure [...] who have questions please contact the health health care sanitary technician that requested your imaging first. ? [...] mammogram documented in this encounter Care Teams Housecalls Nurse Relationship Specialty Start Date End Date Mariluz Watts MD [address] [place] [address] PCP - General 08/22/10 documented as of this encounter
--- OUTSIDE RECORDS SUMMARY | 2024-07-02 16:32 | XMS_ITS | Encounter Summary ---
Author Organization [facility] [place] [address] Care Team Providers Care Preassembler Printed Circuit Board Name Role Phone Mariluz Watts MD Primary Care Provider [phone] Reason for Visit * Reason Comments Follow-up Encounter Details Date Type Department Care Team (Late st Contact Info) Description 01/15/2023 3:30 PM EDT Office Visit Hematology and [place]cology [place] [address] Abrahan Merlos MD [facility] HEMATOLOGY/[place] [address] Malignant neoplasm of right breast, stage 2 [...] on her bone density. Abrahan Merlos MD arc welder apprentice in Hematology-Oncology documented in this encounter Plan of Treatment Upcoming Encounters Date Type Department Care Team (Late st Contact Info) Description 08/05/2024 8:20 AM EST Office Visit Dermatology at [address] [address] Charu Martin MD [facility] DR [place] [place] [address] 11/16/2024 1:00 PM EST Office Visit General [place] [address] Paula Harris PA [facility] [place] [address] 01/26/2025 9:50 AM EDT Appointment Mammography/[place] [address] Joan Deutsch APRN [facility] [place] [address] 01/26/2025 10:30 AM EDT Office Visit General [place] [address] Joan Deutsch, METAL GAUGE MAKER [facility] [place] [address] documented as of this encounter Visit Diagnoses Diagnosis Malignant neoplasm of right breast, stage 2 documented in this encounter Care Teams Preassembler Printed Circuit Board Relationship Specialty Start Date End Date Mariluz Watts MD [address] [place] [address] [address] [facility] 1 [place] [address] PCP - General 08/22/10 documented as of this encounter
--- OUTSIDE RECORDS SUMMARY | 2024-07-02 16:32 | XMS_ITS | Encounter Summary ---
Author Organization [facility] Address [facility] [place] [address] Care Team Providers Care Shank Maker Name Role Phone Mariluz Watts MD Primary Care Provider [phone] Encounter Details Date Type Department Care Team (Late st Contact Info) Description 07/31/2023 Telephone Dermatology at [facility] [address] [place] [address] Cornell Hernández MD [facility] [place] [address] Social History Tobacco Use Types Packs/Day Years [...] 8:20 AM EST Office Visit Dermatology at [address] [address] Charu Martin MD [facility] [place] [address] 11/16/2024 1:00 PM EST Office [place] [address] Paula Harris PA [facility] [place] [address] 01/26/2025 9:50 AM EDT Appointment Mammography/[place] [address] Joan Deutsch APRN [facility] [place] [address] 01/26/2025 10:30 AM EDT Office [place] [address] Joan Deutsch, GE [facility] [place] [address] documented as of this encounter Visit Diagnoses Not on filedocumented in this encounter Care Teams Shank Maker Relationship Specialty Start Date End Date Mariluz Watts MD [address] [place] [address] [address] [place] [address] PCP - General 08/22/10 documented as of this encounter
--- OUTSIDE RECORDS SUMMARY | 2024-07-02 16:32 | XMS_ITS | Encounter Summary ---
[place] [address] Care Team Providers Care Spring Assembler Name Role Phone Mariluz Watts MD Primary Care Provider [phone] Encounter Details Date Type Department Care Team (Latest Contact Info) Description 01/15/2023 2:00 PM EDT - 01/15/2023 11:59 PM EDT Hospital Encounter H[place]ology [place] [address] Other osteoporosis without current pathological fracture Discharge [...] 8:20 AM EST Office Visit Dermatology at [address] [address] Charu Martin MD [facility] [place] [address] 11/16/2024 1:00 PM EST Office [place] [address] Paula Harris PA [facility] [place] [place] [address] 01/26/2025 9:50 AM EDT Appointment Mammography[place] [address] Joan Deutsch APRN [facility] [place] [place] [address] 01/26/2025 10:30 AM EDT Office [place] [address] Joan Deutsch APRN [facility] [place] [address] documented as of this encounter Procedures Procedure [...] [facility] Vit D Interp Sufficient [facility] Blood 01/15/2023 2:20 PM EDT 01/15/2023 2:23 PM EDT Narrative Resulting Agency Comment Spec In Lab Abrahan Merlos MD CHEMISTRY ORDERABLES [facility] [place] [address] * (ABNORMAL) Comprehensive metabolic panel (non-fasting) (01/15/2023 2:20 PM EDT) Glucose 100 65 - 199 mg/dL [facility] [...] Merlos MD CHEMISTRY ORDERABLES Performing Organization Address City/State/[facility] Co de Phone Number [facility] [place] [address] documented in this encounter Visit Diagnoses Diagnosis Other osteoporosis without current pathological fracture documented in this encounter Care Teams Spring Assembler Relationship Specialty Start Date End Date Mairluz Watts MD [address] [place] [address] PCP - General 08/22/10 documented as of this encounter
--- OUTSIDE RECORDS SUMMARY | 2024-07-02 16:32 | XMS_ITS | Encounter Summary ---
[place] [address] Care Team Providers Care Dock Boss Name Role Phone Mariluz Watts MD Primary Care Provider [phone] Reason for Referral * Consultation (Routine) - Closed Specialty Diagnoses / Procedures Referred By John lyons Referred To Contact General Surgery Diagnoses HPV (human papilloma virus) anogenital infection Mayur Banuelos MD [facility] [place] [address] [facility] Gen Surgery [address] [place] [address] Referral ID Status Reason Start Date Expiration Date V isits Requested Visits Authorized [id number] Closed Consult, Test & Treat 09/07/2022 09/07/2023 1 1 Encounter Details Date Type Department Care Team (Late st Contact Info) Description 09/07/2022 6:29 AM EST - 09/07/2022 9:46 AM EST Hospital En[place] [address] Mayur Banuelos MD [facility] [place] [address] Atrial fibrillation, unspecified type; HPV (human papilloma [...] occurs, please contact your Doctor. Please call [phone] before 8pm Mon-Fri with problems, questions or concerns. If you call after 8pm or on weekends, call the Hospital at [phone] and ask to speak to the Graphics Coordinator second vp hr assessment and the barrel dedenting machine operator will contact that person for [...] any problems. Where can you learn more? [facility] View your After Visit Summary and more online at [email or web address] If you would like to provide feedback about your hospital experience, please call the Office of Patient and Family Relations at . If you have received this After Visit Summary in error, please immediately return it in person to the department, or notify the [facility] Privacy Office by calling toll free at between the hours of 8AM and 5PM to arrange for our retrieval of the documents at no cost to you. Content Version: 12.2 ?? [id number] [employer]. Care instructions adapted under license by [employer]. If you have questions about a medical condition or this instruction, always ask your healthcare professional. [employer] disclaims any warranty or liability for your [...] complication. Informed Consent signed by patient (or auto claim representative). documented in this encounter Plan of Treatment Upcoming Encounters Date Type Department Care Team (Late st Contact Info) Description 08/05/2024 8:20 AM EST Office Visit Dermatology at [place] [address] [place] [address] Charu Martin MD [facility] [place] [address] 11/16/2024 1:00 PM EST Office [place] [address] Paula Harris PA [facility] [place] [address] 01/26/2025 9:50 AM EDT Appointment Mammography[place] [address] Joan Deutsch APRN [facility] [place] [address] 01/26/2025 10:30 AM EDT Office [place] [address] Joan Deutsch APRN [facility] [place] [address] Scheduled Referrals Name Type Priority Associated Diagnoses [...] 09/07/2022 8:52 AM EST Colonoscopy, Karrie Darby ([id number]) 09/07/2022 8:00 AM EST 5 yr surv from 03/26/17 COLONOSCOPY Routine 09/07/2022 7:41 AM EST documented in this encounter Results * EKG 12 Lead (09/07/2022 9:26 AM EST) Ventricular rate 86 BPM MUSE SYSTEM QRS Duration 80 ms MUSE SYSTEM Q-T Interval 368 ms MUSE SYSTEM QTC Calculated (Bezet) 440 ms MUSE SYSTEM Calculated R Easley -54 degrees MUSE SYSTEM Calculated T Easley 19 degrees MUSE SYSTEM INTERPRETATION Atrial fibrillation Left axis deviation Abnormal ECG When compared with ECG of 18-SEP-2018 11:55, Atrial fibrillation has replaced Sinus rhythm Nonspecific T wave abnormality now evident in Inferior leads I personally reviewed the tracing and edited the fellows interpretation Confirmed by fellow MD Singh Ashley ([id number]) on 09/07/2022 3:59:02 PM Confirmed by MD MACIEL ARMIN ([id number]) on 09/07/2022 5:35:52 PM MUSE SYSTEM 09/07/2022 9:26 AM EST 09/07/2022 5:35 PM EST Mayur Banuelos MD ECG ORDERABLES Performing Organization Address City/[facility]/ZIP Co de Phone Number MUSE SYSTEM * Specimen to Pathology (09/07/2022 8:54 AM EST) AP Specimen 09/07/2022 8:54 AM EST 09/07/2022 8:54 AM EST Narrative [facility] - 09/07/2022 8:54 AM EST Specimen requisition ordered. ??Separate Pathology report to follow Mayur Banuelos MD PATHOLOGY/CYTOLOG Y ORDERABLES Performing Organization Address City/[facility]/ZIP Co de Phone Number [facility] [place] [address] * Specimen to Pathology (09/07/2022 8:54 AM EST) AP Specimen 09/07/2022 8:54 AM EST 09/07/2022 8:54 AM EST Narrative [facility] - 09/07/2022 8:54 AM EST Specimen requisition ordered. ??Separate Pathology report to follow Mayur Banuelos MD PATHOLOGY/CYTOLOG Y ORDERABLES [facility] [place] [address] * Specimen to Pathology (09/07/2022 8:54 AM EST) AP Specimen 09/07/2022 8:54 AM EST 09/07/2022 8:54 AM EST Narrative [facility] - 09/07/2022 8:54 AM EST Specimen requisition ordered. ??Separate Pathology report to follow Mayur Banuelos MD PATHOLOGY/CYTOLOG Y ORDERABLES [facility] [place] [address] * Surgical Pathology Report (09/07/2022 8:52 AM EST) Final Diagnosis [id number] ? Location: 4T; EA08; A The signing [...] Maxim Verified: ??09/13/2022 14:39 ??Pathologist Performed at: ??-[facility] Dept. of Pathology, [place] [id number] Midwife Practitioner: Uyen Willis MD, FCAP, ??CLIA Certificate: [id number] ADDITIONAL STUDIES Whole slide scan: A1 Immunohistochemistry [...] labeled D1. ??pps 09/13/2022 2:39 PM EST [facility] GI Biopsy 09/07/2022 8:52 AM EST 09/07/2022 8:52 AM EST GI Biopsy 09/07/2022 8:52 AM EST 09/07/2022 8:52 AM EST GI Biopsy 09/07/2022 8:52 AM EST 09/07/2022 8:52 AM EST GI Biopsy 09/07/2022 8:52 AM EST 09/07/2022 8:52 AM EST Mayur Banuelos MD PATHOLOGY/CYTOLOG Y ORDERABLES Performing Organization Address [facility] Co de Phone Number [facility] [place] [address] [facility] [place] [address] * Specimen to Pathology (09/07/2022 8:52 AM EST) AP Specimen 09/07/2022 8:52 AM EST 09/07/2022 8:52 AM EST Narrative [facility] - 09/07/2022 8:52 AM EST Specimen requisition ordered. ??Separate Pathology report to follow Mayur Banuelos MD PATHOLOGY/CYTOLOG Y ORDERABLES Performing Organization Address City/[facility] de Phone Number [facility] [place] [address] * COLONOSCOPY (09/07/2022 7:41 AM EST) COLONOSCOPY [facility] Endoscopy Procedure Date: 09/07/2022 7:41 AM ? Patient Name: Diamond Gaming ? Date of : 1945 ? Age: 76 ? Order #: [id number] ? Instrument Name: [id number] ? Procedure: ? Colonoscopy Indications: ? High [...] preparation was evaluated ? using the BBPS ([place] Bowel ? Preparation Scale) with scores of: [...] were successfully placed (MR ? conditional). Clip ornamental metal worker: Steris 11 and 16mm. ? There was [...] 0800 (New Bag - Prov ider: Navi Martniez RN) PRN Medication Order 09/05/2022 09/06/2022 09/07/2022 [...] RN) documented in this encounter Care Teams Dock Boss Relationship Specialty Start Date End Date Mariluz Watts MD [address] [place] [address] [address] [facility] 1 [place] [address] PCP - General 08/22/10 documented as of this encounter
--- OUTSIDE RECORDS SUMMARY | 2024-07-02 16:32 | XMS_ITS | Encounter Summary ---
Author Organization [place] [address] Care Team Providers Care Election Watcher Name Role Phone Mariluz Watts MD Primary Care Provider [phone] Encounter Details Date Type Department Care Team [...] 8:20 AM EST Office Visit Dermatology at [facility] [address] [place] [address] Charu Martin MD [facility] DR [place] [address] 11/16/2024 1:00 PM EST Office Visit [place] [address] Paula Harris PA [facility] [place] [address] 01/26/2025 9:50 AM EDT Appointment Mammography/[place] [address] Joan Deutsch [facility] [place] [address] 01/26/2025 10:30 AM EDT Office Visit General Surgery at [place] [phone] Joan Deutsch [facility] [place] [place] [address] documented as of this encounter Visit Diagnoses Not on filedocumented in this encounter Care Teams Election Watcher Relationship Specialty Start Date End Date Mariluz Watts MD [address] [place] [address] [address] [facility] 1 [place] [address] PCP - General 08/22/10 documented as of this encounter
--- OUTSIDE RECORDS SUMMARY | 2024-07-02 16:32 | XMS_ITS | Encounter Summary ---
Author Organization [facility] [place] [address] Care Team Providers Care Official Court Reporter Name Role Phone Mariluz Watts MD Primary Care Provider [phone] Encounter Details Date Type Department Care Team [...] 8:20 AM EST Office Visit Dermatology at [facility] [address] [place] [address] Charu Martin MD [facility] DR [place] [address] 11/16/2024 1:00 PM EST Office Visit [place] [address] Paula Harris PA [facility] [place] [address] 01/26/2025 9:50 AM EDT Appointment Mammography/[place] [address] Joan Deutsch [facility] [place] [address] 01/26/2025 10:30 AM EDT Office Visit General Surgery at [place] [phone] Joan Deutsch [facility] [place] [address] documented as of this encounter Visit Diagnoses Not on filedocumented in this encounter Care Teams Official Court Reporter Relationship Specialty Start Date End Date Mariluz Watts MD [address] [place] [address] [address] [facility] [[email or web address] [address] [place] [address] PCP - General 08/22/10 documented as of this encounter
--- OUTSIDE RECORDS SUMMARY | 2024-07-02 16:32 | XMS_ITS | Encounter Summary ---
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 I left a voicemailwith my direct callback number for Diamond to please return my call at her soonest convenience. documented in this encounter Plan of Treatment Upcoming Encounters Date Type Department Care Team (Late st Contact Info) Description 08/05/2024 8:20 AM EST Office Visit Dermatology at [address] [place] [address] Charu Martin MD [facility] DR CONG [place] [address] 11/16/2024 1:00 PM EST Office [place] [address] Paula Harris PA [facility] [place] [address] 01/26/2025 9:50 AM EDT Appointment Mammography/[place] [address] Joan Deutsch APRN [facility] [place] [address] 01/26/2025 10:30 AM EDT Office [place] [address] Joan Deutsch APRN [facility] [place] [address] documented as of this encounter Visit Diagnoses Not on filedocumented in this encounter Care Teams Food Inspector Relationship Specialty Start Date End Date Mariluz Watts MD [address] [place] [address] [address] [place] [address] PCP - General 08/22/10 documented as of this encounter
--- OUTSIDE RECORDS SUMMARY | 2024-07-02 16:32 | XMS_ITS | Encounter Summary ---
Author Organization [facility] [place] [address] Care Team Providers Care Maintenance Team Member Name Role Phone Mariluz Watts MD Primary Care Provider [phone] Encounter Details Date Type Department Care Team [...] 8:20 AM EST Office Visit Dermatology at [facility] [address] [place] [address] Charu Martin MD [facility] [place] [address] 11/16/2024 1:00 PM EST Office [place] [address] Paula Harris, PA [facility] [place] [address] 01/26/2025 9:50 AM EDT Appointment Mammography/[place] [address] Joan Deutsch, [facility] [place] [address] 01/26/2025 10:30 AM EDT Office Visit General Surgery at [place] [phone] Joan Deutsch, [facility] [place] [address] documented as of this encounter Visit Diagnoses Not on filedocumented in this encounter Care Teams Maintenance Team Member Relationship Specialty Start Date End Date Mariluz Watts MD [address] [place] [address] PCP - General 08/22/10 documented as of this encounter
--- OUTSIDE RECORDS SUMMARY | 2024-07-02 16:32 | XMS_ITS | Encounter Summary ---
Author Organization [facility] [place] [address] Care Team Providers Care Sheriffs Name Role Phone Mariluz Watts MD Primary Care Provider [phone] Encounter Details Date Type Department Care Team [...] 8:20 AM EST Office Visit Dermatology at [facility] [address] [place] [address] Charu Martin MD [facility] [address] [place]G [place] [address] 11/16/2024 1:00 PM EST Office [place] [address] Paula Harris, PA [facility] [place] [address] 01/26/2025 9:50 AM EDT Appointment Mammography/[place] [address] Joan Deutsch, [facility] [place] [address] 01/26/2025 10:30 AM EDT Office Visit General Surgery at [place] [phone] Joan Deutsch, [facility] [place] [address] documented as of this encounter Visit Diagnoses Not on filedocumented in this encounter Care Teams Sheriffs Relationship Specialty Start Date End Date Mariluz Watts MD [address] [place] [address] PCP - General 08/22/10 documented as of this encounter
--- OUTSIDE RECORDS SUMMARY | 2024-07-02 16:32 | XMS_ITS | Encounter Summary ---
Author Organization [facility] Address [facility] [place] [address] Care Team Providers Care Net Trainer Name Role Phone Mariluz Watts MD Primary Care Provider [phone] Encounter Details Date Type Department Care Team (Late st Contact Info) Description 10/04/2023 10:40 AM EST Office Visit Dermatology at [facility] [address] [place] [address] Mirta Loaiza MD [facility] [place] [address] Milia; Telangiectasias; Rosacea Social History Tobacco Use Types Packs/Day Years Used Date Smoking Tobacco: Former Cigarettes 1 3 0 09/30/1965 - 09/30/1968 Smokeless Tobacco: Never Alcohol Use Standard Drinks/Week Comments No 0 (1 standard drink = 0.6 oz pur e alcohol) [facility] Inpatient Questions Answer Date Recorded [...] - apply to face BID - Email: [email or web address] - Phone number: [phone] - Discussed redness is best treated with [...] 6 months for rosacea []Note routed to administrative secretary [x]Recall placed in scheduling system []Appointment scheduled at checkout Scribe attestation: Lucia Sinha [facility] has performed the documentation for this encounter in the presence of and acting as a scribe for Mirta Loaiza MD. I performed the above scribed service and agree with the accuracy of the documentation in this encounter. Reviewed and signed by: Mirta Loaiza MD Dermatology [facility] Patient seen and evaluated with staff shrimp picker: Cande Foster MD Dermatology [facility] * Cande Foster MD - 10/04/2023 10:40 [...] them as documented. Cande Foster MD Staff Certified Pest Control Technician Department of Dermatology [facility] documented in this encounter Plan of Treatment Upcoming Encounters Date Type Department Care Team (Late st Contact Info) Description 08/05/2024 8:20 AM EST Office Visit Dermatology at [address] [address] Charu Martin MD [facility] [place] [address] 11/16/2024 1:00 PM EST Office [place] [address] Paula Harris PA [facility] [place] [address] 01/26/2025 9:50 AM EDT Appointment Mammography[place] [address] Joan Deutsch APRN [facility] [place] [address] 01/26/2025 10:30 AM EDT Office [place] [address] Joan Deutsch, [facility] [place] [address] documented as of this encounter Visit Diagnoses Diagnosis Milia Sebaceous cyst Telangiectasias Other and unspecified capillary diseases Rosacea documented in this encounter Care Teams Net Trainer Relationship Specialty Start Date End Date Mariluz Watts MD [address] [place] [address] [address] [place] [address] PCP - General 08/22/10 documented as of this encounter
--- OUTSIDE RECORDS SUMMARY | 2024-07-02 16:32 | XMS_ITS | Encounter Summary ---
Author Organization [facility] [place] [address] Care Team Providers Care Biologics Specialist Name Role Phone Mariluz Watts MD Primary Care Provider [phone] Encounter Details Date Type Department Care Team (Late st Contact Info) Description 09/07/2022 7:45 AM EST - 09/07/2022 8:30 AM EST [place] [address] Mayur Banuelos MD [facility] [place] [address] COLONOSCOPY, POLYPECTOMY, REMOVAL LESION BY SNARE (WRVU [...] occurs, please contact your Doctor. Please call [phone] before 8pm Mon-Fri with problems, questions or concerns. If you call after 8pm or on weekends, call the Hospital at [phone] and ask to speak to the Residential Door Installer certified professional midwife and the canal lock tender chief operator will contact that person for you. When should you call for help? Call [phone] anytime you think you may need emergency [...] After Visit Summary and more online at [email or web address] If you would like to provide [...] cost to you. Content Version: 12.2 ?? 5858-0997 [employer]. Care instructions adapted under license by [facility]. If you have questions about a medical condition or this instruction, always ask your healthcare professional. [employer] disclaims any warranty or liability for your [...] complication. Informed Consent signed by patient (or bilingual inside sales representative). documented in this encounter Plan of Treatment Upcoming Encounters Date Type Department Care Team (Late st Contact Info) Description 08/05/2024 8:20 AM EST Office Visit Dermatology at [address] [address] Cahru Martin MD [facility] [place] [address] 11/16/2024 1:00 PM EST Office [place] [address] Paula Harris PA [facility] [place] [address] 01/26/2025 9:50 AM EDT Appointment Mammography[place] [address] Joan Deutsch APRN [facility] [place] [address] 01/26/2025 10:30 AM EDT Office [place] [address] Joan Deutsch APRN [facility] [place] [address] Scheduled Referrals Name Type Priority Associated Diagnoses [...] 09/07/2022 8:52 AM EST Colonoscopy, Karrie Darby ([id number]) 09/07/2022 8:00 AM EST 5 yr surv from 03/26/17 COLONOSCOPY Routine 09/07/2022 7:41 AM EST documented in this encounter Results * EKG 12 Lead (09/07/2022 9:26 AM EST) Ventricular rate 86 BPM MUSE SYSTEM QRS Duration 80 ms MUSE SYSTEM Q-T Interval 368 ms MUSE SYSTEM QTC Calculated (Bezet) 440 ms MUSE SYSTEM Calculated R Str[place] -54 degrees MUSE SYSTEM Calculated T [place] 19 degrees MUSE SYSTEM INTERPRETATION Atrial fibrillation Left axis deviation Abnormal ECG When compared with ECG of 18-SEP-2018 11:55, Atrial fibrillation has replaced Sinus rhythm Nonspecific T wave abnormality now evident in Inferior leads I personally reviewed the tracing and edited the fellows interpretation Confirmed by fellow MD Francisco, Sharon ([id number]) on 09/07/2022 3:59:02 PM Confirmed by MD MACIEL ARMIN ([id number]) on 09/07/2022 5:35:52 PM MUSE SYSTEM 09/07/2022 9:26 AM EST 09/07/2022 5:35 PM EST Mayur Banuelos MD ECG ORDERABLES MUSE SYSTEM * Specimen to Pathology (09/07/2022 8:54 AM EST) AP Specimen 09/07/2022 8:54 AM EST 09/07/2022 8:54 AM EST Narrative [facility] - 09/07/2022 8:54 AM EST Specimen requisition ordered. ??Separate Pathology report to follow Mayur Banuelos MD PATHOLOGY/CYTOLOG Y ORDERABLES Performing Organization Address [facility] [place] [address] * Specimen to Pathology (09/07/2022 8:54 AM EST) AP Specimen 09/07/2022 8:54 AM EST 09/07/2022 8:54 AM EST Narrative [facility] - 09/07/2022 8:54 AM EST Specimen requisition ordered. ??Separate Pathology report to follow Mayur Banuelos MD PATHOLOGY/CYTOLOG Y ORDERABLES Performing Organization Address [facility] [place] [address] * Specimen to Pathology (09/07/2022 8:54 AM EST) AP Specimen 09/07/2022 8:54 AM EST 09/07/2022 8:54 AM EST Narrative [facility] - 09/07/2022 8:54 AM EST Specimen requisition ordered. ??Separate Pathology report to follow Mayur Banuelos MD PATHOLOGY/CYTOLOG Y ORDERABLES Performing Organization Address [facility] [place] [address] * Surgical Pathology Report (09/07/2022 8:52 AM EST) Final Diagnosis [id number] ? Location: 4T; EA08; A The signing [...] Maxim Verified: ??09/13/2022 14:39 ??Pathologist Performed at: ??-[facility] Dept. of Pathology, [place] [address] Swatch Cutter: Uyen Willis MD, FCAP, ??CLIA Certificate: [id number] ADDITIONAL STUDIES Whole slide scan: A1 Immunohistochemistry [...] labeled D1. ??pps 09/13/2022 2:39 PM EST [facility] GI Biopsy 09/07/2022 8:52 AM EST 09/07/2022 8:52 AM EST GI Biopsy 09/07/2022 8:52 AM EST 09/07/2022 8:52 AM EST GI Biopsy 09/07/2022 8:52 AM EST 09/07/2022 8:52 AM EST GI Biopsy 09/07/2022 8:52 AM EST 09/07/2022 8:52 AM EST Mayur Banuelos MD PATHOLOGY/CYTOLOG Y ORDERABLES [facility] [place] [address] [facility] [place] [address] * Specimen to Pathology (09/07/2022 8:52 AM EST) AP Specimen 09/07/2022 8:52 AM EST 09/07/2022 8:52 AM EST Narrative [facility] - 09/07/2022 8:52 AM EST Specimen requisition ordered. ??Separate Pathology report to follow Mayur Banuelos MD PATHOLOGY/CYTOLOG Y ORDERABLES [facility] [place] [address] * COLONOSCOPY (09/07/2022 7:41 AM EST) COLONOSCOPY [facility] Endoscopy Procedure Date: 09/07/2022 7:41 AM ? Patient Name: Diamond Gaming ? N: [id number] ? Date of : 1945 ? Age: 76 ? Order #: [id number] ? Instrument Name: [id number] ? Procedure: ? Colonoscopy Indications: ? High [...] preparation was evaluated ? using the BBPS (Providence Bowel ? Preparation Scale) with scores of: [...] were successfully placed (MR ? conditional). Clip cylinder steamer: Steris 11 and 16mm. ? There was [...] Mariluz Watts MD GENERAL SURGICAL ORD ERABLES Performing Organization Address City/State/[facility] Co de Phone Number [employer] documented in this encounter Visit Diagnoses [...] RN) documented in this encounter Care Teams Biologics Specialist Relationship Specialty Start Date End Date Mariluz Watts MD [address] [facility] [place] [address] PCP - General 08/22/10 documented as of this encounter
--- OUTSIDE RECORDS SUMMARY | 2024-07-02 16:32 | XMS_ITS | Encounter Summary ---
[place] [address] Care Team Providers Care Modeling Agent Name Role Phone Mariluz Watts MD Primary Care Provider [phone] Encounter Details Date Type Department Care Team (Late st Contact Info) Description 04/24/2023 Telephone [place] [address] Karine Vaca RN Social History Tobacco Use Types Packs/Day Years Used Date Smoking Tobacco: Former Cigarettes 1 3 0 09/30/1965 - 09/30/1968 Smokeless Tobacco: Never Alcohol Use Standard Drinks/Week Comments No 0 (1 standard drink = 0.6 oz pur e alcohol) [facility] Inpatient Questions Answer Date Recorded Does [...] Operative Note Patient Name: Diamond Gaming : [id number] MR#: [id number] Case Date: 04/16/2023 Surgeon: Surgeon(s) and Role: [...] pain, prolonged nausea and vomiting, please call ([phone] during daytime and [phone] at night/weekends) and/or go to the ED [...] 8:20 AM EST Office Visit Dermatology at [place] [address] [place] [address] Charu Martin MD [facility] [place] [address] 11/16/2024 1:00 PM EST Office Visit General Surgery at [place] [phone] Paula Harris PA [facility] [place] [address] 01/26/2025 9:50 AM EDT Appointment Mammography/DXA at [place] [phone] [facility] [place] [address] 01/26/2025 10:30 AM EDT Office Visit General Surgery at [place] [phone] Joan Deutsch RN SPINE [facility] [place] [address] documented as of this encounter Visit Diagnoses Not on filedocumented in this encounter Care Teams Modeling Agent Relationship Specialty Start Date End Date Mariluz Watts MD [address] [place] [address] [address] [place] [address] PCP - General 08/22/10 documented as of this encounter
--- OUTSIDE RECORDS SUMMARY | 2024-07-02 16:32 | XMS_ITS | Encounter Summary ---
[place] [address] Care Team Providers Care Cash Register Repairer Name Role Phone Mariluz Watts MD Primary Care Provider [phone] Encounter Details Date Type Department Care Team (Late st Contact Info) Description 08/30/2022 Telephone [place] [address] Bella Junior Social History Tobacco Use Types [...] - 08/30/2022 2:05 PM EST Diamond Gaming [id number] Diagnosis/Indication: 5 yr surv from 03/26/17 Please review patient chart to confirm if previous Endoscopy procedure was performed within [facility]. If yes, take note of Anesthesia [...] knees 18. You must have a responsible libertarian who will drive you to your procedure, stay on campus for the entire duration of your procedure, and drive you home from your procedure. Who will likely be your skip load driver for the procedure? *Please Verify the [...] 8:20 AM EST Office Visit Dermatology at [address] [address] Charu Martin MD [facility] [place] [address] 11/16/2024 1:00 PM EST Office [place] [address] Paula Harris PA [facility] [place] [address] 01/26/2025 9:50 AM EDT Appointment Mammography[place] [address] Joan Deutsch APRN [facility] [place] [address] 01/26/2025 10:30 AM EDT Office [place] [address] Joan Deutsch APRN [facility] [place] [address] documented as of this encounter Visit Diagnoses Not on filedocumented in this encounter Care Teams Cash Register Repairer Relationship Specialty Start Date End Date Mariluz Watts MD [address] [facility] [place] [address] PCP - General 08/22/10 documented as of this encounter
--- OUTSIDE RECORDS SUMMARY | 2024-07-02 16:32 | XMS_ITS | Encounter Summary ---
Author Organization [facility] [place] [address] Care Team Providers Care Under Cutting Machine Operator Name Role Phone Mariluz Watts MD Primary Care Provider [phone] Reason for Visit * Reason Comments Establish Care * Consultation (Routine) - Closed Specialty Diagnoses / Procedures Referred By John lyons Referred To Contact General Surgery Diagnoses HPV (human papilloma virus) anogenital infection Mayur Banuelos MD [facility] [place] [address] [facility] Gen Surgery [address] [place] [address] Referral ID Status Reason Start Date Expiration Date V isits Requested Visits Authorized [id number] Closed Consult, Test & Treat 09/07/2022 09/07/2023 1 1 Encounter Details Date Type Department Care Team (Latest Contact Info) Description 12/12/2022 8:00 AM EDT Office [place] [address] Aria Higuera MD [facility] [place] [address] HPV (human papilloma virus) anogenital infection; Internal [...] HPV infection, as HPV is spread by uqqy-dc-uadi contact and can live in areas not [...] Division of Colon and Rectal Surgery ~ [facility] Care Team: PCP is Mariluz Watts [...] She was reportedly seeing hematology here at [facility] in 2009 who diagnosed her with this. [...] urology here at as well as in [place]. She has seen a pelvic floor physical [...] atrial fibrillation. She has not seen a preventive medicine officer yet, but is scheduled to see cardiology at [facility] in January. She is not on any [...] ??? Hypermobility syndrome ??? Kidney disease ??? 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 Motion [...] Procedure Date: 08/18/2006 ??? CREATED BY INTERFACE [id number] Procedure Date: 01/27/2007 ??? CREATED BY INTERFACE [...] ANTERIOR APPROACH performed by NICK ERVIN at [facility] MAIN OR ??? PRO BLEPHAROPLASTY UPPER EYELID W EXCESSIVE SKIN Bilateral 03/27/2019 BLEPHAROPLASTY,UPPER EYELID, WITH EXCESSIVE SKIN, ANDRES (WRVU 6.81) performed by Debbi Green MD at [facility] OSC ??? PRO COLONOSCOPY, DIAGNOSTIC 02/29/2012 COLONOSCOPY, DIAGNOSTIC performed by GALLITO KUO at [facility] ENDOSCOPY ??? PRO COLONOSCOPY, REMV LESN, SNARE N/A 03/26/2017 COLONOSCOPY, POLYPECTOMY, REMOVAL LESION BY SNARE (WRVU 4.67) performed by Gallito Kuo MD at [facility] ENDOSCOPY ??? PRO COLONOSCOPY, REMV LESN, SNARE N/A 09/07/2022 COLONOSCOPY, POLYPECTOMY, REMOVAL LESION BY SNARE (WRVU 4.67) performed by Mayur Banuelos MDat [facility] ENDOSCOPY ??? PRO CYSTO/URETERO/PYELOSCOPY W/LITHOTRIPSY Left 07/27/2015 CYSTOURETEROSCOPY, LITHOTRIPSY performed by Rosales Bowman MD at [facility] MAIN OR ??? PRO CYSTOSCOPY, INSERT URETERAL STENT Left 07/11/2015 CYSTO, STENT PLACEMENT performed by Jose D Chauhan III, MD at [facility] MAIN OR ??? PRO CYSTOSCOPY, INSERT URETERAL STENT Left 07/27/2015 CYSTO, STENT PLACEMENT performed by Rosales Bowman MD at [facility] MAIN OR ??? PRO CYSTOSCOPY, REMV CALCULUS, SIMPLE Left 07/27/2015 CYSTO, REMOVAL OF STENT, FOREIGN BODY OR CALCULUS, SIMPLE performed by Rosales Bowman MD at [facility] MAIN OR ??? PRO CYSTOURETHROSCOPY, URETER CATHETER N/A 07/11/2015 CYSTO, RETROGRADE, URETEROPYELOGRAPHY performed by Jose D Chauhan III, MD at [facility] MAIN OR ? ? PRO EXC SKIN BENIG >4CM TRUNK, ARM, LEG 03/27/2011 EXC BENIGN LESION; INDRA >4.0CM, TRUNK performed by TIRSO CHAUDHARI at [facility] MAIN OR ??? PRO UPPER GI ENDOSCOPY, DIAGNOSTIC N/A 11/06/2018 EGD, UPPER GI ENDOSCOPY performed by Charisma Aguayo MD at [facility] ENDOSCOPY Allergies: Hymenoptera allergenic extract, Tetracycline, [...] clips were successfully placed (MR ?conditional). Clip sack sewer: Steris 11 and 16mm. ?There was no [...] She is scheduled to see a women's preventive medicine officer at the [facility] in January. She is not on any [...] recently been following with a urologist in [place]. She has not been evaluated by urogynecology. We discussed that prior to excising condyloma, we need more clarification and clearance from her preventive medicine officer, who she is going to see in [...] was able to speak with her OR spreader for a mutually agreeable date. We will [...] EUA with biopsy/excision anal lesion; hemorrhoidectomy CPT: 11251; 90691; 37259 OR date: March 2023 Estimated LOS: SDS [...] Chief, Division of Colon and Rectal Surgery [facility] Pager [phone] documented in this encounter Plan of Treatment Upcoming Encounters Date Type Department Care Team (Late st Contact Info) Description 08/05/2024 8:20 AM EST Office Visit Dermatology at [facility] [address] [place] [address] Charu Martin MD [facility] DR CONG [place] [address] 11/16/2024 1:00 PM EST Office [place] [address] Paula Harris PA [facility] [place] [address] 01/26/2025 9:50 AM EDT Appointment Mammography/[place] [phone] Joan Deutsch APRN [facility] [place] [address] 01/26/2025 10:30 AM EDT Office [place] [phone] Joan Deutsch BREAD ICER [facility] [place] [address] documented as of this encounter Visit Diagnoses [...] syndrome documented in this encounter Care Teams Under Cutting Machine Operator Relationship Specialty Start Date End Date Mariluz Watts MD [address] [place], [place] [address] [place] [address] PCP - General 08/22/10 documented as of this encounter
--- OUTSIDE RECORDS SUMMARY | 2024-07-02 16:32 | XMS_ITS | Encounter Summary ---
[place] [address] Care Team Providers Care Dough Raiser Name Role Phone Mariluz Watts MD Primary Care Provider [phone] Encounter Details Date Type Department Care Team (Late st Contact Info) Description 01/01/2023 Telephone [place] [address] Rayne Nicole RN Social History Tobacco Use [...] Visit Dermatology at [facility] [address] [address] Charu Martin MD [facility] [place] [address] 11/16/2024 1:00 PM EST Office Visit General Surgery at [place] [phone] Paula Harris PA [facility] [place] [address] 01/26/2025 9:50 AM EDT Appointment Mammography/[place] [address] Joan Deutsch APRN [facility] [place] [address] 01/26/2025 10:30 AM EDT Office Visit General Surgery at [place] [phone] Joan Deutsch SUBSTATION OPERATOR APPRENTICE [facility] [place] [address] documented as of this encounter Visit Diagnoses Not on filedocumented in this encounter Care Teams Dough Raiser Relationship Specialty Start Date End Date Mariluz Watts MD [address] [place] [address] PCP - General 08/22/10 documented as of this encounter
--- OUTSIDE RECORDS SUMMARY | 2024-07-02 16:32 | XMS_ITS | Encounter Summary ---
Author Organization [facility] [place] [address] Care Team Providers Care Newscast Director Name Role Phone Mariluz Watts MD Primary Care Provider [phone] Encounter Details Date Type Department Care Team (Late st Contact Info) Description 01/15/2023 2:15 PM EDT Laboratory Appointment Lab [address] [phone] Social History Tobacco Use Types Packs/Day Years [...] 8:20 AM EST Office Visit Dermatology at [facility] [address] [place] [address] Charu Martin MD [facility] [place] [address] 11/16/2024 1:00 PM EST Office Visit General Surgery at [place] [address] Paula Harris PA [facility] [place] [address] 01/26/2025 9:50 AM EDT Appointment Mammography/[place] [address] Joan Deutsch, GE [facility] [place] [address] 01/26/2025 10:30 AM EDT Office [place] [address] Joan Deutsch, GE [facility] [place] [address] documented as of this encounter Visit Diagnoses Not on filedocumented in this encounter Care Teams Newscast Director Relationship Specialty Start Date End Date Mariluz Watts MD [address] [place] [address] PCP - General 08/22/10 documented as of this encounter
--- OUTSIDE RECORDS SUMMARY | 2024-07-02 16:32 | XMS_ITS | Encounter Summary ---
Author Organization [facility] [place] [address] Care Team Providers Care Biological Aide Name Role Phone Mariluz Watts MD Primary Care Provider [phone] Encounter Details Date Type Department Care Team (Late st Contact Info) Description 04/16/2023 1:15 PM EDT - 04/16/2023 3:30 PM EDT Surgery [place] [address] Aria Higuera MD [facility] [place] [address] ANORECTAL EXAM, REQUIRING ANESTHESIA, DIAGNOSTIC (WRVU 1.8) [...] 15 minutes 4X/day. Pain medications Please take [id number]-[id number] pain medications for post-operative discomfort.(Please continue to [...] Center 05/20/2023 2:00 PM Aria Higuera MD [facility] 07/08/2023 10:20 AM Cornell Hernández MD [facility] of Colon and Rectal Surgery, [place] [address] documented in this encounter Medications at Time [...] past. [facility] who diagnosed her with this (Dr. Villalba). She now currently sees Dr. De La Cruz.Has received preop TXA with prior orthopedic surgery. Patient has diagnosis of atrial fibrillation,saw cardiology at [facility], she is now on daily Eliquis. Stopped [...] Operative Note Patient Name: Diamond Gaming : [id number] MR#: [id number] Case Date: 04/16/2023 Surgeon: Surgeon(s) and Role: [...] LEFT posterior hpv eD-H Order Id number [id number] SPECIMEN TO PATHOLOGY hemorrhoidectomy/hpv interior RIGHT posterior [...] Higuera MD - 04/16/2023 5:34 PM EDT [facility] Operative Note Patient Name: Diamond Gaming : [id number] MR#: [id number] Case Date: 04/16/2023 Surgeon: Surgeon(s) and Role: [...] LEFT posterior hpv eD-H Order Id number [id number] SPECIMEN TO PATHOLOGY hemorrhoidectomy/hpv interior RIGHT posterior [...] AM EST Office Visit Dermatology at [address] [address] Charu Martin MD [facility] [address] 11/16/2024 1:00 PM EST Office Visit [place] [address] Paula Harris PA [facility] [place] [address] 01/26/2025 9:50 AM EDT Appointment Mammography/[place] [address] Joan Deutsch APRN [facility] [place] [address] 01/26/2025 10:30 AM EDT Office Visit [place] [phone] Joan Deutsch APRN [facility] [place] [address] documented as of this encounter Procedures Procedure Name Priority Date/Time Associated Diagnosis Comments SPECIMEN TO PATHOLOGY Routine 04/16/2023 6:01 PM EDT SURGICAL PATHOLOGY REPORT Routine 2022 5:47 PM EDT SPECIMEN TO PATHOLOGY Routine 04/16/2023 5:47 PM EDT Hemorrhoidectomy, Int/Ext, Simple ([id number]) 04/16/2023 5:07 PM EDT hemorrhoidectomy/ hpv Destruction Lesion Anus Simple Electrodesiccation (13494) 04/16/2023 5:07 PM EDT hemorrhoidectomy/ hpv Surg Diagnostic Exam, Anorectal ([id number]) 04/16/2023 5:07 PM EDT hemorrhoidectomy/ hpv documented in this encounter Results * Specimen to Pathology (04/16/2023 6:01 PM EDT) AP Specimen 04/16/2023 6:01 PM EDT 04/16/2023 6:01 PM EDT Narrative [facility] - 04/16/2023 6:01 PM EDT Specimen requisition ordered. ??Separate Pathology report to follow Aria Higuera MD PATHOLOGY/CYTOLOGY O RDERABLES [facility] [place] [address] * Surgical Pathology Report (04/16/2023 5:47 PM EDT) Final Diagnosis [id number] ? Location: [facility]; [facility]; A The signing pathologist has (i) examined [...] Dotson Verified: ??04/23/2023 16:25 ??Pathologist Performed at: ??-[facility] Dept. of Pathology, [place] [address] Director Internal Audit: Uyen Willis MD, FCAP, ??CLIA Certificate: [id number] ADDITIONAL STUDIES Whole slide scan: A1 SPECIMEN(S) [...] vasculature. Sections/Processin g: Inked and serially sectioned. Mri Special Procedures Technologist sections in 1 cassette labeled B1. ??vmj 04/23/2023 4:25 PM EDT [facility] ANAL STRUCTURE / Unknown 04/16/2023 5:47 PM EDT 04/16/2023 5:47 PM EDT ANAL STRUCTURE / Unknown 04/16/2023 5:47 PM EDT 04/16/2023 5:47 PM EDT Aria Higuera MD PATHOLOGY/CYTOLOGY O RDERABLES [facility] [place] [id number] [facility] [place] [place] [address] * Specimen to Pathology (04/16/2023 5:47 PM EDT) AP Specimen 04/16/2023 5:47 PM EDT 04/16/2023 5:47 PM EDT Narrative [facility] - 04/16/2023 5:47 PM EDT Specimen requisition ordered. ??Separate Pathology report to follow Aria Higuera MD PATHOLOGY/CYTOLOGY O RDERALIANA [facility] [place] [address] documented in this encounter Visit Diagnoses Not [...] RN) documented in this encounter Care Teams Biological Aide Relationship Specialty Start Date End Date Mariluz Watts MD [address] [place] [address] PCP - General 08/22/10 documented as of this encounter
--- OUTSIDE RECORDS SUMMARY | 2024-07-02 16:32 | XMS_ITS | Encounter Summary ---
[place] [address] Care Team Providers Care Mobile Homes Repairer Name Role Phone Mariluz Watts MD Primary Care Provider [phone] Encounter Details Date Type Department Care Team (Late st Contact Info) Description 04/05/2023 11:00 AM EDT [place] [address] Social History Tobacco Use Types Packs/Day Years [...] 8:20 AM EST Office Visit Dermatology at [facility] [address] [place] [address] Charu Martin MD [facility] [place] [address] 11/16/2024 1:00 PM EST Office Visit General Surgery at [place] [phone] Paula Harris PA [facility] [place] [address] 01/26/2025 9:50 AM EDT Appointment Mammography/[place] [address] Joan Deutsch LIFELINE REPRESENTATIVES [facility] [place] [address] 01/26/2025 10:30 AM EDT Office [place] [address] Joan Deutsch [employer]EL[employer] REPRESENT[employer] [facility] [place] [address] documented as of this encounter Visit Diagnoses Not on filedocumented in this encounter Care Teams Mobile Homes Repairer Relationship Specialty Start Date End Date Mariluz Watts MD [address] [place] [address] [address] [place] [address] PCP - General 08/22/10 documented as of this encounter
--- OUTSIDE RECORDS SUMMARY | 2024-07-02 16:32 | XMS_ITS | Encounter Summary ---
[place] [address] Care Team Providers Care Head Charrer Name Role Phone Mariluz Watts MD Primary Care Provider [phone] Encounter Details Date Type Department Care Team (Late st Contact Info) Description 04/19/2023 Telephone [place] [address] Linsey Chang RN Social History Tobacco Use Types Packs/Day Years Used Date Smoking Tobacco: Former Cigarettes 1 3 0 09/30/1965 - 09/30/1968 Smokeless Tobacco: Never Alcohol Use Standard Drinks/Week Comments No 0 (1 standard drink = 0.6 oz pur e alcohol) [facility] Inpatient Questions Answer Date Recorded Does Anyone [...] Department Care Team (Late Contact Info) Description 08/05/2024 8:20 AM EST Office Visit Dermatology at [facility] [address] [place] [address] Charu Martin MD [facility] DR [place] [place] [address] 11/16/2024 1:00 PM EST Office [place] [address] Paula Harris PA [facility] [place] [address] 01/26/2025 9:50 AM EDT Appointment Mammography/[place] [address] Joan Deutsch, FLAME HARDENER [facility] [place] [address] 01/26/2025 10:30 AM EDT Office Visit [place] [address] Joan Deutsch, [facility] [place] [address] documented as of this encounter Visit Diagnoses Not on filedocumented in this encounter Care Teams Head Charrer Relationship Specialty Start Date End Date Mariluz Watts MD [address] [place] [address] PCP - General 08/22/10 documented as of this encounter
--- OUTSIDE RECORDS SUMMARY | 2024-07-02 16:33 | XMS_ITS | Encounter Summary ---
[place] [address] Care Team Providers Care Home Lighting Adviser Name Role Phone Mariluz Watts MD Primary Care Provider [phone] Reason for Visit * Reason Comments Follow-up discuss right foot C T scan Encounter Details Date Type Department Care Team (Late st Contact Info) Description 05/11/2019 9:00 AM EDT Office [place] [address] Shekhar Moody MD [facility] [place] [address] Arthritis of midfoot (Primary Dx) Social History [...] tear (TEARS) Drops ??? multivit with calcium,iron,min ([id number]-NK-KDRA-MINERALS ORAL) ??? omeprazole (PRILOSEC) 20 mg Capsule, [...] 8:20 AM EST Office Visit Dermatology at [address] [place] [address] Charu Martin MD [facility] [place] [address] 11/16/2024 1:00 PM EST Office [place] [address] Paula Harris PA [facility] [place] [address] 01/26/2025 9:50 AM EDT Appointment Mammography/[place] [address] Joan Deutsch APRN [facility] [place] [address] 01/26/2025 10:30 AM EDT Office [place] [address] Joan Deutsch APRN [facility] [place] [address] documented as of this encounter Visit Diagnoses Diagnosis Arthritis of midfoot- Primary Unspecified arthropathy, ankle and foot documented in this encounter Care Teams Home Lighting Adviser Relationship Specialty Start Date End Date Mariluz Watts MD [address] [facility] [address] [place] [address] PCP - General 08/22/10 documented as of this encounter
--- OUTSIDE RECORDS SUMMARY | 2024-07-02 16:33 | XMS_ITS | Encounter Summary ---
[place] [address] Care Team Providers Care Pile Operator Name Role Phone Mariluz Watts MD Primary Care Provider [phone] Encounter Details Date Type Department Care Team (Late st Contact Info) Description 12/11/2019 1:30 PM EDT Office Visit [place] [address] Abrahan Merlos MD [facility] HEMATOLOGY/[place] [address] Thumb pain, left; Malignant neoplasm of right [...] with her next mammograms. Abrahan Merlos MD vice president of operations in Hematology-Oncology documented in this encounter Plan of Treatment Upcoming Encounters Date Type Department Care Team (Late st Contact Info) Description 08/05/2024 8:20 AM EST Office Visit Dermatology at [facility] [address] [place] [address] Charu Martin MD [facility] [place] [address] 11/16/2024 1:00 PM EST Office Visit General Surgery at [place] [phone] Paula Harris PA [facility] [place] [address] 01/26/2025 9:50 AM EDT Appointment Mammography/[place] [address] Joan Deutsch APRN [facility] [place] [address] 01/26/2025 10:30 AM EDT Office [place] [address] Joan Deutsch APRN [facility] [place] [address] documented as of this encounter Visit Diagnoses Diagnosis Thumb pain, left Malignant neoplasm of right breast, stage 2 documented in this encounter Care Teams Pile Operator Relationship Specialty Start Date End Date Mariluz Watts MD [address] [place] [address] [address] [facility] [place] [address] PCP - General 08/22/10 documented as of this encounter
--- OUTSIDE RECORDS SUMMARY | 2024-07-02 16:33 | XMS_ITS | Encounter Summary ---
Author Organization [facility] [place] [address] Care Team Providers Care Television Maintenance Man Name Role Phone Mariluz Watts MD Primary Care Provider [phone] Encounter Details Date Type Department Care Team (Late st Contact Info) Description 03/27/2019 2:22 PM EDT Anesthesia Event [place] [address] Francisco Javier Britt MD [facility] [place] [address] Stoney Gatica MD [facility] [place] [address] Anesthesia Record Procedure Summary Procedure Name Responsible [...] 1419; metacarpal vein (top of hand), left; yura-zzw-hrfdqu catheter system; 20 gauge, 1 in length; Shaila Espinosa MANAGER HOME; intradermal injection; 03/27/19; 1520 03/27/19 1419 by [...] Procedure Summary Date: 03/27/19 Room / Location: [address] Anesthesia Start: 1422 Anesthesia Stop: 1500 Procedure: BLEPHAROPLASTY,UPPER EYELID, WITH EXCESSIVE SKIN, ANDRES (WRVU 6.81) (Bilateral Face) Diagnosis: Dermatochalasis of both upper eyelids (visually significant dermatochalasis, bilateral upper eyelids) Surgeon: Debbi Green MD Responsible Provider: Francisco Javier Britt MD Anesthesia Type: MAC ASA Status: 2 All Anesthesia Providers: Anesthesiologist: Francisco Javier Britt MD MANAGER HOME: Shaila Espinosa CRNA Vitals Value Taken Time BP 137/77 03/27/2019 3:15 PM Temp Pulse 74 03/27/2019 3:16 PM Resp 16 03/27/2019 3:03 PM SpO2 98 % 03/27/2019 3:16 PM Pain Level 0 03/27/2019 3:24 PM Vitals shown include unvalidated device data. Patient Location: PACU/[facility] Level of Consciousness: Awake and Alert Pain [...] epi, into skin and subcutaneous tissues (CPT [id number]) left total hip arthroplasty, anterior Hueter approach with [place] table (CPT code 97143) Left hip intraoperative radiologic examination (CPT code 67098) Amicar infusion (5 g IV load, then 1g/hr x 3 hrs) Components Used: [place] Accolade stem, size 4, 127 degrees Trident PSLcup, 52 mm, solid 32 mm ID, alumina 32-4 mm alumina head ??? Hip pain ??? S/P Right ARSLAN 03/06/2005 ([facility]) SURGERY DATE: 03/06/2005 ARCADIO STEINER, NICK Angel Surgical Procedure Performed: Right total hip arthroplasty, cementless, nxjwymq-fa-qjusngc Components Used: [place] Trident 52 shell outer diameter Femoral head 32-4 mm [place] Accolade Femoral stem size 4, 127 deg [...] hypermobility syndrome ??? GI bleeding 03/25/2011 ??? 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 Motion [...] risks discussed with patient. Plan discussed with MANAGER HOME. PAT Clinic Note documented in this encounter Plan of Treatment Upcoming Encounters Date Type Department Care Team (Late st Contact Info) Description 08/05/2024 8:20 AM EST Office Visit Dermatology at [facility] [address] [place] [address] Charu Martin MD [facility] [place] [address] 11/16/2024 1:00 PM EST Office Visit General Surgery at [place] [phone] Paula Harris PA [facility] [place] [address] 01/26/2025 9:50 AM EDT Appointment Mammography/[place] [address] Joan Deutsch APRN [facility] [place] [address] 01/26/2025 10:30 AM EDT Office Visit General Surgery at [place] [phone] Joan Deutsch APRN [facility] [place] [place] [address] documented as of this encounter Visit Diagnoses [...] mg documented in this encounter Care Teams Television Maintenance Man Relationship Specialty Start Date End Date Mariluz Watts MD [address] [place] [address] [address] [place] [address] PCP - General 08/22/10 documented as of this encounter
--- OUTSIDE RECORDS SUMMARY | 2024-07-02 16:33 | XMS_ITS | Encounter Summary ---
[place] [address] Care Team Providers Care Windows Desktop Engineer Name Role Phone Mariluz Watts MD Primary Care Provider [phone] Encounter Details Date Type Department Care Team (Late st Contact Info) Description 12/22/2020 2:20 PM EDT Office [place] [address] Joan Deutsch APRN [facility] [place] [address] History of breast cancer; Encounter for screening [...] carcinoma with lobular features Tumor Grade: Intermediate Drcppn-Jxwsa-Ksqqtzszzp Score: 7 Tubular Differentiation: 3 Mitotic Rate: [...] sentinel nodes: 2 (Specimen A - Right [place] node) No. positive for carcinoma: 1 (H&E) No. with IHC (+) cells only: 0 (cells not seen by H&E, see Note*) No. negative for carcinoma: 1 (both H&E and IHC For positive nodes: Largest kristi deposit 0.2 cm Extranodal extension Absent Estrogen/Progestin receptors: Performed on blocks C2 and C11 ER immunoreactivity: Positive (see Diagnostic hanna*) AL immunoreactivity: Positive (see Diagnostic hanna*) HER2/shonda expression [...] to call with questions in the interim. oJan Deutsch APRN documented in this encounter Plan of Treatment Upcoming Encounters Date Type Department Care Team (Late st Contact Info) Description 08/05/2024 8:20 AM EST Office Visit Dermatology at [place] [address] [place] [address] Charu Martin MD [facility] [place] [address] 11/16/2024 1:00 PM EST Office [place] [address] Paula Harris PA [facility] [place] [address] 01/26/2025 9:50 AM EDT Appointment Mammography/[place] [address] Joan Deutsch APRN [facility] [place] [address] 01/26/2025 10:30 AM EDT Office [place] [address] Joan Deutsch, GE [facility] [place] [address] documented as of this encounter Results * [...] who have questions please contact the health day care teacher that requested your imaging first. ? Joan Deutsch APRN IMG MAMMO ORDERABLE S documented in this encounter Visit Diagnoses Diagnosis History of breast cancer Personal history of malignant neoplasm of breast Encounter for screening mammogram for breast cancer History of breast cancer Personal history of malignant neoplasm of breast Encounter for screening mammogram for breast cancer documented in this encounter Care Teams Windows Desktop Engineer Relationship Specialty Start Date End Date Mariluz Watts MD [address] [place] [address] PCP - General 08/22/10 documented as of this encounter
--- OUTSIDE RECORDS SUMMARY | 2024-07-02 16:33 | XMS_ITS | Encounter Summary ---
[place] [address] Care Team Providers Care Tube Sizer And Cutter Operator Name Role Phone Mariluz Watts MD Primary Care Provider [phone] Encounter Details Date Type Department Care Team (Late st Contact Info) Description 05/21/2019 Telephone [place] [address] Maricarmen Martins, RN Social History Tobacco Use [...] below this line=== ----- Message ----- From: Natalya Locke Sent: 05/19/2019 2:22 PM EDT To: Laisha Grady, RN, Maricarmen Martins RN Subject: Dorothy PT wants lab results Anne-Marie pang, PT said someone spoke with her today. She is still waiting on lab results from [facility] in [place] that were drawn. Would you mind giving her a call at home at [phone]? Thanks for your time, December...again documented in this encounter Plan of Treatment Upcoming Encounters Date Type Department Care Team (Late st Contact Info) Description 08/05/2024 8:20 AM EST Office Visit Dermatology at [address] [address] Charu Martin MD [facility] [place] [address] 11/16/2024 1:00 PM EST Office [place] [address] Paula Harris PA [facility] [place] [address] 01/26/2025 9:50 AM EDT Appointment Mammography/[place] [address] Joan Deutsch APRN [facility] [address] 01/26/2025 10:30 AM EDT Office [place] [address] Joan Deutsch APRN [facility] [place] [address] documented as of this encounter Visit Diagnoses Not on filedocumented in this encounter Care Teams Tube Sizer And Cutter Operator Relationship Specialty Start Date End Date Mariluz Watts MD [address] [place] [address] PCP - General 08/22/10 documented as of this encounter
--- OUTSIDE RECORDS SUMMARY | 2024-07-02 16:33 | XMS_ITS | Encounter Summary ---
[place] [address] Care Team Providers Care Wreath And Garland Maker Hand Name Role Phone Mariluz Watts MD Primary Care Provider [phone] Reason for Visit * Reason Comments Medication Refill Encounter Details Date Type Department Care Team (Late Contact Info) Description 07/08/2021 [place] [address] Bella Kenean MD [facility] [place] [address] Social History Tobacco Use Types Packs/Day Years [...] 8:20 AM EST Office Visit Dermatology at [address] [place] [address] Charu Martin MD [facility] DR CON[address] JOSE-DERMATOLOGY [place] [id number] 11/16/2024 1:00 PM EST Office Visit [place] [address] Paula Harris PA [facility] [place] [address] 01/26/2025 9:50 AM EDT Appointment Mammography/DXA at [place] [phone] Joan Deutsch, [facility] [place] [address] 01/26/2025 10:30 AM EDT Office Visit [place] [address] Joan Deutsch [facility] [place] [address] documented as of this encounter Visit Diagnoses Not on filedocumented in this encounter Care Teams Wreath And Garland Maker Hand Relationship Specialty Start Date End Date Mariluz Watts MD [address] [place] [address] [address] [facility] [place] [address] PCP - General 08/22/10 documented as of this encounter
--- OUTSIDE RECORDS SUMMARY | 2024-07-02 16:33 | XMS_ITS | Encounter Summary ---
Author Organization [facility] [place] [address] Care Team Providers Care Lard Maker Name Role Phone Mariluz Watts MD Primary Care Provider [phone] Reason for Visit * Reason Onset Date Comments Pre Procedure Call 11/23/2019 Encounter Details Date Type Department Care Team (Late st Contact Info) Description 11/23/2019 Telephone [place] [address] Shekhar Moody MD [facility] DR [place] [address] Pre Procedure Call Social History Tobacco Use [...] left a message for patient to call [phone] directly and schedule surgery with Dr. moody. documented in this encounter Plan of Treatment Upcoming Encounters Date Type Department Care Team (Late st Contact Info) Description 08/05/2024 8:20 AM EST Office Visit Dermatology at [place] [address] [place] [address] Charu Martin MD [facility] [address] [place] [address] 11/16/2024 1:00 PM EST Office Visit [place] [address] Paula Harris PA [facility] [place] [address] 01/26/2025 9:50 AM EDT Appointment Mammography/[place] [address] Joan Deutsch APRN [facility] [place] [address] 01/26/2025 10:30 AM EDT Office Visit [place] [address] Joan Deutsch APRN [facility] [place] [address] documented as of this encounter Visit Diagnoses Not on filedocumented in this encounter Care Teams Lard Maker Relationship Specialty Start Date End Date Mariluz Watts MD [address] [place] [address] PCP - General 08/22/10 documented as of this encounter
--- OUTSIDE RECORDS SUMMARY | 2024-07-02 16:33 | XMS_ITS | Encounter Summary ---
[place] [address] Care Team Providers Care Market Consultant Name Role Phone Mariluz Watts MD Primary Care Provider [phone] Reason for Referral * Diagnostic Test (Routine) - Closed Specialty Diagnoses / Procedures Referred By Contac t Referred To Contact Radiology Diagnoses Primary osteoarthritis of right foot Procedures CT Foot wo Contrast Right (Generic) Daylin Waldrop PA [facility] [place] [address] [facility] [place] [address] Referral ID Status Reason Start Date Expiration Date V isits Requested Visits Authorized [id number] Closed Specialty Service Requested 03/10/2019 03/09/2020 1 1 Reason for Visit * Diagnostic Test (Routine) - Closed Specialty Diagnoses / Procedures Referred By Contac t Referred To Contact Radiology Diagnoses Primary osteoarthritis of right foot Procedures CT Foot wo Contrast Right (Generic) Daylin Waldrop PA [facility] [place] [address] [facility] [place] [address] Referral ID Status Reason Start Date Expiration Date V isits Requested Visits Authorized [id number] Closed Specialty Service Requested 03/10/2019 03/09/2020 1 1 Encounter Details Date Type Department Care Team (Latest Contact Info) Description 03/19/2019 8:31 AM EDT - 03/19/2019 11:59 PM EDT Hospital Encounter CT Scan at [facility] [place] [address] Shekhar Moody MD [facility] [place] [address] Primary osteoarthritis of right foot [...] daily as needed. 09/07/2022 multivit with calcium,iron,min (GQDURUYQSKWT-PV-IQEG-M INERALS ORAL) Take by mouth. 09/07/2022 omeprazole [...] EST Office Visit Dermatology at [facility] [address] [place] [address] Charu Martin MD [facility] [place] [address] 11/16/2024 1:00 PM EST Office [place] [address] Paula Harris PA [facility] [place] [address] 01/26/2025 9:50 AM EDT Appointment Mammography/[place] [address] Joan Deutsch APRN [facility] [place] [address] 01/26/2025 10:30 AM EDT Office [place] [address] Joan Deutsch APRN [facility] [place] [address] documented as of this encounter Procedures Procedure [...] foot documented in this encounter Care Teams Market Consultant Relationship Specialty Start Date End Date Mariluz Watts MD [address] [place] [address] [address] [facility] 1 [place] [address] PCP - General 08/22/10 documented as of this encounter
--- OUTSIDE RECORDS SUMMARY | 2024-07-02 16:33 | XMS_ITS | Encounter Summary ---
Author Organization [facility] [place] [address] Care Team Providers Care Foam Gun Operator Name Role Phone Mariluz Watts MD Primary Care Provider Reason for Visit * Reason Comments Skin Check * Consultation (Routine) - Specialty Diagnoses / Procedures Referred By John lyons Referred To Contact Dermatology Diagnoses Disorder of the skin and subcutaneous tissue, unspecified subcutaneous tissue disorder Mariluz Watts MD [address] [facility] 1 [place] [address] [facility] [address] [place] [address] Referral ID Status Reason Start Date Expiration Date V isits Requested Visits Authorized [id number] Consult, Test & Treat PCP Updated and/or Approved 05/27/2019 11/27/2019 6 6 Encounter Details Date Type Department Care Team (Late st Contact Info) Description 08/03/2019 11:00 AM EST Office Visit Dermatology at [facility] [address] [place] [address] Terry Min MD [facility] [address] [place] [place] [address] Seborrheic keratoses; Seborrheic keratosis, inflamed; Carlos angioma [...] daily as needed. ??? multivit with calcium,iron,min (ONBSFCZISBQE-RC-GPJU-MINERALS ORAL) Take by mouth. ??? omeprazole (PRILOSEC) [...] by: Terry Min MD Resident in Dermatology [facility] Patient seen and evaluated with staff knot bumper: José Manuel Kelly MD Section of Dermatology [facility] * José Manuel Kelly MD - [...] withthem as documented. JOSÉ MANUEL KELLY MD [facility] Staff Physician documented in this encounter Plan of Treatment Upcoming Encounters Date Type Department Care Team (Late st Contact Info) Description 08/05/2024 8:20 AM EST Office Visit Dermatology at [facility] [address] [place] [address] Charu Martin MD [facility] [place] [address] 11/16/2024 1:00 PM EST Office [place] [address] Paula Harris PA [facility] [place] [place] [address] 01/26/2025 9:50 AM EDT Appointment Mammography/[place] [address] Joan Deutsch, [facility] [place] [address] 01/26/2025 10:30 AM EDT Office [place] [address] Joan Deutsch, [facility] [place] [address] documented as of this encounter Visit Diagnoses Diagnosis Seborrheic keratoses Other seborrheic keratosis Seborrheic keratosis, inflamed Inflamed seborrheic keratosis Carlos angioma Nevus, non-neoplastic documented in this encounter Care Teams Foam Gun Operator Relationship Specialty Start Date End Date Mariluz Watts MD [address] [place] [address] [address] [place] [address] PCP - General 08/22/10 documented as of this encounter
--- OUTSIDE RECORDS SUMMARY | 2024-07-02 16:33 | XMS_ITS | Encounter Summary ---
[place] [address] Care Team Providers Care Rf Technician Name Role Phone Mariluz Watts MD Primary Care Provider [phone] Reason for Visit * Reason Comments Follow-up XR, bilat TKA surgic al consult Encounter Details Date Type Department Care Team (Latest Contact Info) Description 11/23/2019 9:40 AM EST Office [place] [address] Shekhar Moody MD [facility] [place] [address] Primary osteoarthritis of left knee (Primary Dx); [...] tear (TEARS) Drops ??? multivit with calcium,iron,min (LLMBZSDFTBSY-YR-WLPW-MINERALS ORAL) ??? omeprazole (PRILOSEC) 20 mg Capsule, [...] more recently in the [facility] at [facility]. Enjoys reading Has a dog, which she enjoys walking Lives with her son in [facility] Social History Tobacco Use ??? Smoking status: [...] 8:20 AM EST Office Visit Dermatology at [address] [address] Charu Martin MD [facility] [address] [place] [address] 11/16/2024 1:00 PM EST Office Visit [place] [address] Paula Harris PA [facility] [place] [address] 01/26/2025 9:50 AM EDT Appointment Mammography/[place] [address] Joan Deutsch APRN [facility] [place] [address] 01/26/2025 10:30 AM EDT Office Visit [place] [address] Joan Deutsch, GE [facility] [place] [address] documented as of this encounter Visit Diagnoses Diagnosis Primary osteoarthritis of left knee- Primary Primary localized osteoarthrosis, lower leg Need for prophylactic chemotherapy Need for other prophylactic chemotherapy Pain in extremity, unspecified extremity documented in this encounter Care Teams Rf Technician Relationship Specialty Start Date End Date Mariluz Watts MD [address] [place] [address] PCP - General 08/22/10 documented as of this encounter
--- OUTSIDE RECORDS SUMMARY | 2024-07-02 16:33 | XMS_ITS | Encounter Summary ---
Author Organization [facility] Address [facility] [place] [address] Care Team Providers Care Car Dealer Name Role Phone Mariluz Watts MD Primary Care Provider [phone] Reason for Visit * Physical Therapy (Routine) - Closed Specialty Diagnoses / Procedures Referred By John lyons Referred To Contact Physical Therapy Diagnoses OAB (overactive bladder) Bella Keenan MD [facility] [place] [address] [facility] [address] [place] [address] Referral ID Status Reason Start Date Expiration Date V isits Requested Visits Authorized [id number] Closed Evaluate and Treat 10/11/2020 10/11/2021 12 12 Encounter Details Date Type Department Care Team (Late st Contact Info) Description 12/29/2020 11:00 AM EDT Office Visit Rehab PT at [facility] [address] [place] [address] Shaila Rendon PT OAB (overactive [...] holding. ?? 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 ? MET date Loan Manager Therapy Goals (6 months, 05/23/2021) Patient [...] 8:20 AM EST Office Visit Dermatology at [facility] [address] [place] [address] Charu Martin MD [facility] [place] [address] 11/16/2024 1:00 PM EST Office [place] [address] Paula Harris PA [facility] [place] [address] 01/26/2025 9:50 AM EDT Appointment Mammography/[place] [address] Joan Deutsch APRN [facility] [place] [address] 01/26/2025 10:30 AM EDT Office [place] [address] Joan Deutsch MANAGER ANALYSIS [facility] [place] [address] documented as of this encounter Visit Diagnoses Diagnosis OAB (overactive bladder) Hypertonicity of bladder Pelvic floor dysfunction Pelvic muscle wasting documented in this encounter Care Teams Car Dealer Relationship Specialty Start Date End Date Mariluz Watts MD [address] [place] [address] PCP - General 08/22/10 documented as of this encounter
--- OUTSIDE RECORDS SUMMARY | 2024-07-02 16:33 | XMS_ITS | Encounter Summary ---
Author Organization [facility] Address [facility] [place] [address] Care Team Providers Care Hedis Analyst Name Role Phone Mariluz Watts MD Primary Care Provider [phone] Reason for Visit * Physical Therapy (Routine) - Closed Specialty Diagnoses / Procedures Referred By John lyons Referred To Contact Physical Therapy Diagnoses OAB (overactive bladder) Bella Keenan MD [facility] [place] [address] [facility] Pt [facility] [address] [place] [address] Referral ID Status Reason Start Date Expiration Date V isits Requested Visits Authorized [id number] Closed Evaluate and Treat 10/11/2020 10/11/2021 12 12 Encounter Details Date Type Department Care Team (Latest Contact Info) Description 11/23/2020 11:00 AM EST Office Visit Rehab PT at [facility] [address] [place] [address] Shaila Rendon PT OAB (overactive [...] (stopped as it caused HTN), PT at [facility] in [place] (helpful, but not on meds at the [...] or breath holding. 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 MET date Logging Supervisor Therapy Goals (6 months, 05/23/2021) 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... [...] 8:20 AM EST Office Visit Dermatology at [facility] [address] [place] [address] Charu Martin MD [facility] [place] [address] 11/16/2024 1:00 PM EST Office [place] [address] Paula Harris, PA [facility] [place] [address] 01/26/2025 9:50 AM EDT Appointment Mammography/DXA at [place] [phone] Joan Deutsch, BEER BREWER [facility] [place] [address] 01/26/2025 10:30 AM EDT Office Visit [place] [address] Joan Deutsch, BEER BREWER [facility] [place] [address] Scheduled Referrals Name Type Priority Associated Diagnoses [...] disorder documented in this encounter Care Teams Hedis Analyst Relationship Specialty Start Date End Date Mariluz Watts MD [address] [place] [address] PCP - General 08/22/10 documented as of this encounter
--- OUTSIDE RECORDS SUMMARY | 2024-07-02 16:33 | XMS_ITS | Encounter Summary ---
Author Organization [facility] Address [facility] [place] [address] Care Team Providers Care Packaging Inspector Name Role Phone Mariluz Watts MD Primary Care Provider [phone] Reason for Referral * Physical Therapy (Routine) - Closed Specialty Diagnoses / Procedures Referred By Contanthony t Referred To Contact Physical Therapy Diagnoses OAB (overactive bladder) Bella Keenan MD [facility] [place] [address] [facility] Pt Rehab [address] [place] [address] Referral ID Status Reason Start Date Expiration Date V isits Requested Visits Authorized [id number] Closed Evaluate and Treat 10/11/2020 10/11/2021 12 12 Reason for Visit * Consultation (Routine) - Closed Specialty Diagnoses / Procedures Referred By Contac t Referred To Contact Urology Diagnoses Other specified disorders of bladder BLADDER IRRITABILITY *Female Provider* Mariluz Watts MD [address] [place] [address] [address] [place] [address] [facility] [place] [address] Referral ID Status Reason Start Date Expiration Date V isits Requested Visits Authorized [id number] Closed Consult, Test & Treat 07/29/2020 07/29/2021 1 1 Encounter Details Date Type Department Care Team (Late st Contact Info) Description 10/11/2020 3:40 PM EST [place] [address] Bella Keenan MD [facility] [place] [address] OAB (overactive bladder) Social History [...] more information on better bladder control visit: [email or web address] People with overactive bladder (OAB) may experience [...] full effects of your efforts. 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 [...] hypermobility syndrome ??? GI bleeding 03/25/2011 ??? senior living current use of opiate analgesic ??? Motion [...] 8:20 AM EST Office Visit Dermatology at [facility] [address] [place] [address] Charu Martin MD [facility] [place] [address] 11/16/2024 1:00 PM EST Office Visit General Surgery at [place] [phone] Paula Harris PA [facility] [place] [address] 01/26/2025 9:50 AM EDT Appointment Mammography/[place] [phone] Joan Deutsch APRN [facility] [address] 01/26/2025 10:30 AM EDT Office [place] [address] Joan Deutsch APRN [facility] [place] [address] Scheduled Referrals Name Type Priority Associated Diagnoses Orde r Schedule Referral to Physical Therapy Outpatient Referral Routine OAB (overactive bladder) Ordered: 10/11/2020 documented as of this encounter Visit Diagnoses Diagnosis OAB (overactive bladder) Hypertonicity of bladder documented in this encounter Care Teams Packaging Inspector Relationship Specialty Start Date End Date Mariluz Watts MD [address] [place] [address] PCP - General 08/22/10 documented as of this encounter
--- OUTSIDE RECORDS SUMMARY | 2024-07-02 16:33 | XMS_ITS | Encounter Summary ---
Author Organization [facility] [place] [address] Care Team Providers Care Softlines Supervisor Name Role Phone Mariluz Watts MD Primary Care Provider [phone] Reason for Referral * Diagnostic Test (Routine) - Closed Specialty Diagnoses / Procedures Referred By Contac t Referred To Contact Radiology Diagnoses Osteopenia of left forearm Procedures DXA Central Spine, Hip, and/or Whole Body (Generic) Abrahan Merlos MD [facility] HEMATOLOGY/[place] [address] [facility] Rad Xray [address] [place] [address] [place] [address] Referral ID Status Reason Start Date Expiration Date V isits Requested Visits Authorized [id number] Closed Specialty Service Requested 12/22/2020 06/24/2022 1 1 Reason for Visit * Diagnostic Test (Routine) - Closed Specialty Diagnoses / Procedures Referred By Contac t Referred To Contact Radiology Diagnoses Osteopenia of left forearm Procedures DXA Central Spine, Hip, and/or Whole Body (Generic) Abrahan Merlos MD [facility] HEMATOLOGY/[place] [address] [facility] Rad Xray [address] [place] [address] [place] [address] Referral ID Status Reason Start Date Expiration Date V isits Requested Visits Authorized [id number] Closed Specialty Service Requested 12/22/2020 06/24/2022 1 1 Encounter Details Date Type Department Care Team (Latest Contact Info) Description 12/26/2021 9:19 AM EDT - 12/26/2021 11:59 PM EDT Hospital Encounter Mammography/DXA at [facility] [place] [address] Abrahan Merlos MD [facility] HEMATOLOGY/[place] [address] Osteopenia of left forearm Discharge [...] TABLET DAILY 90 tablet 3 07/09/2021 11/18/2023 [id number] ORAL Take 1 caplet by mouth daily. [...] daily as needed. 09/07/2022 multivit with calcium,iron,min (LOTAKURUGWDH-JL-XCPA- MINERALS ORAL) Take by mouth. 09/07/2022 acetaminophen [...] 8:20 AM EST Office Visit Dermatology at [address] [place] [address] Charu Martin MD [facility] [place] [address] 11/16/2024 1:00 PM EST Office Visit [place] [address] Paula Harris PA [facility] [place] [place] [address] 01/26/2025 9:50 AM EDT Appointment Mammography/[place] [address] Joan Deutsch APRN [facility] [place] [place] [address] 01/26/2025 10:30 AM EDT Office Visit [place] [address] Joan Deutsch APRN [facility] [place] [place] [address] documented as of this encounter Procedures Procedure [...] BMD measurements and plots are available in EKwiClick under the imaging tab. Paper copies will be sent to providers without EKwiClick access. If you have received this report without the data sheet and do not have access to ETippr, please contact Radiology Tick Eradicator at [phone] Saturday thru Saturday 8am-4pm. Thank you for letting us participate in the care of this patient. ??If you are a health care provider and have any questions regarding this report, please contact the number below. ??For patients who have questions please contact the health cardiac care nurse that requested your imaging first. [...] previous, 0.086 ??g/cm2 (9.9 %) increase. At [facility], least significant change for bone mineral [...] previous, 0.086 g/cm2 (9.9 %) increase. At [facility], least significant change for bonemineral density measurements at the spine region of interest: 0.031 g/cm2 IMPRESSION Measurements meet WHO criteria for osteoporosis. The change inclassification was due to decrease in T score at the one third distal radius. Bone mineral density measurements at the spine have increased compared [facility]. Estimating Fracture Risk: The relationship between bone [...] BMD measurements and plots are available in ETipprunder the imaging tab. Paper copies will be sent to providers without BetterWorks access.If you have received this report without the data sheet and do not haveaccess to ETippr, please contact Radiology Tick Eradicator at [phone] Saturday thruFriday 8am-4pm. Thank you for letting us participate in the care of this patient. If youare a health care provider and have any questions regarding this report,please contact the number below. For patients who have questions please contactthe health cardiac care nurse that requested your imaging first. Abrahan Merlos MD IMG DEXA ORDERABLES documented in this encounter Visit Diagnoses Diagnosis Osteopenia of left forearm documented in this encounter Care Teams Softlines Supervisor Relationship Specialty Start Date End Date Mariluz Watts MD [address] [place] [address] 1 [place] [address] PCP - General 08/22/10 documented as of this encounter
--- OUTSIDE RECORDS SUMMARY | 2024-07-02 16:33 | XMS_ITS | Encounter Summary ---
[place] [address] Care Team Providers Care Bid Manager Name Role Phone Mariluz Watts MD Primary Care Provider [phone] Reason for Visit * Reason Comments Post Op Encounter Details Date Type Department Care Team (Latest Contact Info) Description 04/09/2019 3:00 PM EDT Office [place] [address] Debbi Green MD [facility] [place] [address] Dermatochalasis of both upper eyelids Social History [...] 8:20 AM EST Office Visit Dermatology at [place] [address] [place] [address] Charu Martin MD [facility] DR [address] [place] [address] 11/16/2024 1:00 PM EST Office Visit General Surgery at [place] [phone] Paula Harris PA [facility] [place] [address] 01/26/2025 9:50 AM EDT Appointment Mammography/[place] [address] Joan Deutsch APRN [facility] [place] [address] 01/26/2025 10:30 AM EDT Office [place] [address] Joan Deutsch APRN [facility] [place] [address] documented as of this encounter Visit Diagnoses Diagnosis Dermatochalasis of both upper eyelids documented in this encounter Care Teams Bid Manager Relationship Specialty Start Date End Date Mariluz Watts MD [address] [place] [address] PCP - General 08/22/10 documented as of this encounter
--- OUTSIDE RECORDS SUMMARY | 2024-07-02 16:33 | XMS_ITS | Encounter Summary ---
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 [...] hypermobility syndrome ??? GI bleeding 03/25/2011 ??? nursing home current use of opiate analgesic ??? Motion [...] 8:20 AM EST Office Visit Dermatology at [facility] [address] [place] [address] Charu Martin MD [facility] [place] [address] 11/16/2024 1:00 PM EST Office Visit General Surgery at [place] [address] Paula Harris PA [facility] [place] [address] 01/26/2025 9:50 AM EDT Appointment Mammography/[place] [address] Joan Deutsch [facility] [place] [address] 01/26/2025 10:30 AM EDT Office [place] [address] Joan Deutsch [facility] [address] documented as of this encounter Visit Diagnoses Diagnosis OAB (overactive bladder) Hypertonicity of bladder documented in this encounter Care Teams Votator Machine Operator Relationship Specialty Start Date End Date Mariluz Watts MD [address] [facility] [facility] [address] [place] [address] PCP - General 08/22/10 documented as of this encounter
--- OUTSIDE RECORDS SUMMARY | 2024-07-02 16:33 | XMS_ITS | Encounter Summary ---
Author Organization [facility] [place] [address] Care Team Providers Care Electrical Transmission Engineer Name Role Phone Mariluz Watts MD Primary Care Provider [phone] Reason for Visit * Reason Comments Follow-up Encounter Details Date Type Department Care Team (Late st Contact Info) Description 12/26/2021 11:30 AM EDT Office Visit Hematology [place] [address] Abrahan Merlos MD [facility] HEMATOLOGY/[place] [address] Malignant neoplasm of right breast, stage 2; [...] Her hands and fingers are weak, her programs assistant strength is poor, and she tends to [...] with her next mammograms. Abrahan Merlos MD baseball inspector in Hematology-Oncology documented in this encounter Plan of Treatment Upcoming Encounters Date Type Department Care Team (Late st Contact Info) Description 08/05/2024 8:20 AM EST [facility] [address] [place] [address] Charu Martin MD [facility] [place] [address] 11/16/2024 1:00 PM EST Office [place] [address] Paula Harris PA [facility] [place] [address] 01/26/2025 9:50 AM EDT Appointment Mammography[place] [address] Joan Deutsch APRN [facility] [place] [address] 01/26/2025 10:30 AM EDT Office [place] [address] Joan Deutsch APRN [facility] [place] [address] documented as of this encounter Results * (ABNORMAL) Comprehensive metabolic panel (non-fasting) (01/15/2023 2:20 PM EDT) Glucose 100 65 - 199 mg/dL [facility] Comment:Diabetes: >=200 mg/d L plus symptoms Blood Urea Nitrogen 17 8 - 18 mg/dL [facility] Creatinine 0.78 0.70 - 1.20 mg/dL [facility] Sodium 145 135 - 145 mmol/L [facility] Potassium 4.3 3.5 - 5.0 mmol/L [facility] Comment: Please note: ??Patients with WBC >100,000 may have falsely elevated Potassium levels. ??For accurate Potassium quantification in these patients send serum separator tube (gold top) for subsequent determinations. ??Contact the Clinical Chemistry Laboratory if there are any questions. Chloride 109(H) 98 - 107 mmol/L [facility] Carbon Dioxide 26 22 - 31 mmol/L [facility] Anion Gap 10 5 - 15 mmol/L [facility] Calcium 9.9 8.5 - 10.5 mg/dL [facility] Protein, Total 6.9 6.1 - 8.0 g/dL [facility] Albumin 4.7 3.2 - 5.2 g/dL [facility] Aspartate Aminotransferase 12 0 - 30 unit/L [facility] Alanine Aminotransferase 17 0 - 30 unit/L [facility] Alkaline Phosphatase 90 35 - 105 unit/L [facility] Bilirubin, Total 0.2 0.2 - 1.3 mg/dL [facility] Est Glomerular Filtration Rate 79 >=60 mL/min/1. 73 m?? [facility] Comment: This patient's estimated GFR was [...] In Lab Abrahan Merlos MD CHEMISTRY ORDERABLES [facility] [place] [address] * Vitamin D, 25-Hydroxy (01/15/2023 2:20 PM EDT) Vitamin D Total 25 OH 42 21 - 100 ng/mL [facility] Vit D Interp Sufficient [facility] Blood 01/15/2023 2:20 PM EDT 01/15/2023 2:23 PM EDT Narrative Resulting Agency Comment Spec In Lab Abrahan Merlos MD CHEMISTRY ORDERABLES Performing Organization Address City/State/[facility] Co de Phone Number [facility] [place] [address] documented in this encounter Visit Diagnoses Diagnosis Malignant neoplasm of right breast, stage 2 Other osteoporosis without current pathological fracture documented in this encounter Care Teams Electrical Transmission Engineer Relationship Specialty Start Date End Date Mariluz Watts MD [address] [place] [address] PCP - General 08/22/10 documented as of this encounter
--- OUTSIDE RECORDS SUMMARY | 2024-07-02 16:33 | XMS_ITS | Encounter Summary ---
[place] [address] Care Team Providers Care Hand Tile Maker Name Role Phone Mariluz Watts MD Primary Care Provider [phone] Reason for Visit * Reason Onset Date Comments Bumped Appointment 04/06/2019 Encounter Details Date Type Department Care Team (Late st Contact Info) Description 04/06/2019 [place] [address] Shekhar Moody MD [facility] [place] [address] Bumped Appointment Social History Tobacco Use Types [...] 8:20 AM EST Office Visit Dermatology at [place] [address] [place] [address] Charu Martin MD [facility] [place] [address] 11/16/2024 1:00 PM EST Office Visit General Surgery at [place] [phone] Paula Harris PA [facility] [place] [address] 01/26/2025 9:50 AM EDT Appointment Mammography/[place] [address] Joan Deutsch APRN [facility] [place] [address] 01/26/2025 10:30 AM EDT Office [place] [address] Joan Deutsch APRN [facility] [place] [address] documented as of this encounter Visit Diagnoses Not on filedocumented in this encounter Care Teams Hand Tile Maker Relationship Specialty Start Date End Date Mariluz Watts MD [address] [place], [place] [address]Y [facility] 1 [place] [address] PCP - General 08/22/10 documented as of this encounter
--- OUTSIDE RECORDS SUMMARY | 2024-07-02 16:33 | XMS_ITS | Encounter Summary ---
[place] [address] Care Team Providers Care Data Analysis Intern Name Role Phone Mariluz Watts MD Primary Care Provider [phone] Encounter Details Date Type Department Care Team (Latest Contact Info) Description 12/26/2021 9:18 AM EDT Hospital Encounter Mammography/[place] [address] Joan Deutsch APRN [facility] [place] [address] History of breast cancer; Encounter for screening [...] TABLET DAILY 90 tablet 3 07/09/2021 11/18/2023 [id number] ORAL Take 1 caplet by mouth daily. [...] daily as needed. 09/07/2022 multivit with calcium,iron,min (BKREGBTSCVOD-ZR-PBML- MINERALS ORAL) Take by mouth. 09/07/2022 acetaminophen [...] [facility] [address] [place] [address] Charu Martin MD [facility] [address] [place] [address] 11/16/2024 1:00 PM EST Office [place] [address] Paula Harris PA [facility] [place] [address] 01/26/2025 9:50 AM EDT Appointment Mammography/[place] [address] Joan Deutsch APRN [facility] [place] [address] 01/26/2025 10:30 AM EDT Office [place] [address] Joan Deutsch, POLISHER EYEGLASS FRAMES [facility] [place] [address] documented as of this encounter Procedures Procedure [...] who have questions please contact the health in home caregiver that requested your imaging first. ? Joan Deutsch POLISHER EYEGLASS FRAMES IMG MAMMO ORDERABLE S documented in this encounter Visit Diagnoses Diagnosis History of breast cancer Personal history of malignant neoplasm of breast Encounter for screening mammogram for breast cancer documented in this encounter Care Teams Data Analysis Intern Relationship Specialty Start Date End Date Mariluz Watts MD [address] [place] [address] PCP - General 08/22/10 documented as of this encounter
--- OUTSIDE RECORDS SUMMARY | 2024-07-02 16:33 | XMS_ITS | Encounter Summary ---
Author Organization [facility] [place] [address] Care Team Providers Care Arch Pad Cementer Name Role Phone Mariluz Watts MD Primary Care Provider Encounter Details Date Type Department Care Team (Late st Contact Info) Description 11/13/2021 [place] [address] Bella Keenan MD [facility] [address] Social History Tobacco Use Types Packs/Day Years [...] [place] - 11/13/2021 2:04 PM EST PHONE: [phone] Pt calls as she received recall letter [...] 8:20 AM EST Office Visit Dermatology at [facility] [address] [place] [address] Charu Martin MD [facility] [place] [address] 11/16/2024 1:00 PM EST Office Visit General Surgery at [place] [phone] Paula Harris PA [facility] [place] [address] 01/26/2025 9:50 AM EDT Appointment Mammography/DXA at [place] [phone] Joan Deutsch CLAM GRADER [facility] [place] [address] 01/26/2025 10:30 AM EDT Office Visit General Surgery at [place] [phone] Joan Deutsch CLAM GRADER [facility] [place] [address] documented as of this encounter Visit Diagnoses Not on filedocumented in this encounter Care Teams Arch Pad Cementer Relationship Specialty Start Date End Date Mariluz Watts MD [address] [place] [address] [address] [place] [address] PCP - General 08/22/10 documented as of this encounter
--- OUTSIDE RECORDS SUMMARY | 2024-07-02 16:33 | XMS_ITS | Encounter Summary ---
[place] [address] Care Team Providers Care History Tutor Name Role Phone Mariluz Watts MD Primary Care Provider [phone] Encounter Details Date Type Department Care Team (Late st Contact Info) Description 03/27/2019 3:07 PM EDT - 03/27/2019 4:01 PM EDT Surgery [place] [address] Debbi Green MD [facility] [place] [address] BLEPHAROPLASTY,UPPER EYELID, WITH EXCESSIVE SKIN, ANDRES (WRVU [...] the ointment in the eye or an fnpr-zqh-kofqtxa artificial tear drop. Your bruising and swelling [...] Green immediately. She may be reached at [phone]: PLEASE DO NOT HESITATE TO CALL IF YOU ARE HAVING A PROBLEM!! There is always a doctor corporate operations compliance manager at the eye clinic. documented in this [...] daily as needed. 09/07/2022 multivit with calcium,iron,min (VIUXOLZYSTMY-FT-LKBF-M INERALS ORAL) Take by mouth. 09/07/2022 omeprazole [...] Green MD - 03/27/2019 2:09 PM EDT [facility] Operative Note Patient Name: Diamond Gaming : [id number] MR#: [id number] Case Date: 03/27/2019 Surgeon: Surgeon(s) and Role: [...] 8:20 AM EST Office Visit Dermatology at [place] [address] [place] [address] Charu Martin MD [facility] [place] [address] 11/16/2024 1:00 PM EST Office Visit [place] [address] Paula Harris PA [facility] [address] 01/26/2025 9:50 AM EDT Appointment Mammography/[place] [address] Joan Deutsch, GE [facility] [place] [address] 01/26/2025 10:30 AM EDT Office Visit [place] [address] Joan Deutsch, GE [facility] [place] [address] documented as of this encounter Procedures Procedure [...] local.) documented in this encounter Care Teams History Tutor Relationship Specialty Start Date End Date Mariluz Watts MD [address] [place] [address] PCP - General 08/22/10 documented as of this encounter
--- OUTSIDE RECORDS SUMMARY | 2024-07-02 16:33 | XMS_ITS | Encounter Summary ---
Author Organization [facility] [place] [address] Care Team Providers Care Director Of Contracts Name Role Phone Mariluz Watts MD Primary Care Provider [phone] Encounter Details Date Type Department Care Team (Latest Contact Info) Description 11/23/2019 8:38 AM EST - 11/23/2019 11:59 PM [facility] Hospital Encounter XRay at [address] [place] [id number] Shekhar Moody MD [facility] [place] [address] Chronic pain of both knees Discharge Disposition: [...] daily as needed. 09/07/2022 multivit with calcium,iron,min (LMEMYOLNWJRK-OK-WGOO-M INERALS ORAL) Take by mouth. 09/07/2022 omeprazole [...] 8:20 AM EST Office Visit Dermatology at [place] [address] [place] [address] Charu Martin MD [facility] [place] [address] 11/16/2024 1:00 PM EST Office [place] [address] Paula Harris PA [facility] [place] [address] 01/26/2025 9:50 AM EDT Appointment Mammography/[place] [address] Joan Deutsch, [facility] [place] [address] 01/26/2025 10:30 AM EDT Office [place] [address] Joan Deutsch, [facility] [place] [address] documented as of this encounter Procedures Procedure Name Priority Date/Time Associated Diagnosis Comments XR KNEE STANDING ALIGNMENT AP LAT [place] SKYLINE BILAT Routine 11/23/2019 9:04 AM EST Chronic pain of both knees documented in this encounter Results * XR Knee Standing Alignment AP Lat [place] Bilat (11/23/2019 9:04 AM EST) Anatomical Region [...] the number below. ? Electronically signed by: Jesusita Nazario [facility] ([phone]), at 11/23/2019 10:54 AM Narrative 11/23/2019 10:54 AM EST EXAMINATION: XR [...] knees documented in this encounter Care Teams Director Of Contracts Relationship Specialty Start Date End Date Mariluz Watts MD [address] [place] [address] PCP - General 08/22/10 documented as of this encounter
--- OUTSIDE RECORDS SUMMARY | 2024-07-02 16:33 | XMS_ITS | Encounter Summary ---
[place] [address] Care Team Providers Care Prepress Technician Name Role Phone Mariluz Watts MD Primary Care Provider [phone] Encounter Details Date Type Department Care Team (Latest Contact Info) Description 03/27/2019 1:45 PM EDT - 03/27/2019 3:30 PM EDT Hospital Encounter Outpatient [place] [address] Debbi Green MD [facility] [place] [address] Discharge Disposition: Home Social History Tobacco Use [...] the ointment in the eye or an dzft-amv-miazzzk artificial tear drop. Your bruising and swelling [...] Green immediately. She may be reached at [phone]: PLEASE DO NOT HESITATE TO CALL IF YOU ARE HAVING A PROBLEM!! There is always a doctor five piece expansion maker hand at the eye clinic. documented in this [...] daily as needed. 09/07/2022 multivit with calcium,iron,min (TDLQKSFBAGRI-ME-FBES-M INERALS ORAL) Take by mouth. 09/07/2022 omeprazole [...] Green MD - 03/27/2019 2:[address] [facility] Operative Note Patient Name: Diamond Gaming : [id number] MR#: [id number] Case Date: 03/27/2019 Surgeon: Surgeon(s) and Role: [...] 8:20 AM EST Office Visit Dermatology at [address] [place] [address] Charu Martin MD [facility] [place] [address] 11/16/2024 1:00 PM EST Office [place] [address] Paula Harris PA [facility] [place] [address] 01/26/2025 9:50 AM EDT Appointment Mammography/DXA at [place] [phone] Joan Deutsch APRN [facility] DR HDEZ SURGERY [place], [place] [address] 01/26/2025 10:30 AM EDT Office [place] [address] Joan Deutsch, GE [facility] [place] [address] documented as of this encounter Procedures Procedure [...] local.) documented in this encounter Care Teams Prepress Technician Relationship Specialty Start Date End Date Mariluz Watts MD [address] [place] [address] [address] [facility] 1 [place] [address] PCP - General 08/22/10 documented as of this encounter
--- OUTSIDE RECORDS SUMMARY | 2024-07-02 16:33 | XMS_ITS | Encounter Summary ---
[place] [address] Care Team Providers Care University Librarian Name Role Phone Mariluz Watts MD Primary Care Provider [phone] Encounter Details Date Type Department Care Team (Late st Contact Info) Description 12/11/2019 12:40 PM EDT Office [place] [address] Joan Deutsch APRN [facility] [place] [address] History of breast cancer Social History Tobacco [...] carcinoma with lobular features Tumor Grade: Intermediate Pvpgpm-Pvhon-Xbpqzgbhsw Score: 7 Tubular Differentiation: 3 Mitotic Rate: [...] sentinel nodes: 2 (Specimen A - Right Stollings node) No. positive for carcinoma: 1 (H&E) [...] EST Office Visit Dermatology at [place] [address] [place] [address] Charu Martin MD [facility] [address] [place] [address] 11/16/2024 1:00 PM EST Office [place] [address] Paula Harris PA [facility] [place] [address] 01/26/2025 9:50 AM EDT Appointment Mammography/DXA at [facility] [place] [address] Joan Deutsch, GE [facility] [place] [address] 01/26/2025 10:30 AM EDT Office [place] [address] Joan Deutsch, GE [facility] [place] [address] documented as of this encounter Results * [...] ? Electronically signed by: Beata Narayan MD, [facility] ([phone]), at 12/22/2020 5:41 PM Joan Deutsch PROVIDER RELATIONS SPECIALIST IMG MAMMO ORDERABLE S documented in this encounter Visit Diagnoses Diagnosis History of breast cancer Personal history of malignant neoplasm of breast History of breast cancer Personal history of malignant neoplasm of breast documented in this encounter Care Teams University Librarian Relationship Specialty Start Date End Date Mariluz Watts MD [address] [facility] 1 [place] [address] PCP - General 08/22/10 documented as of this encounter
--- OUTSIDE RECORDS SUMMARY | 2024-07-02 16:33 | XMS_ITS | Encounter Summary ---
Author Organization [facility] [place] [address] Care Team Providers Care Panel Edge Painter Name Role Phone Mariluz Watts MD Primary Care Provider [phone] Encounter Details Date Type Department Care Team (Latest Contact Info) Description 12/11/2019 10:42 AM EDT - 12/11/2019 11:59 PM EDT Hospital Encounter Mammography/[place] [address] Karin Webb APRN [facility] [place] [address] History of breast cancer Discharge Disposition: Home [...] daily as needed. 09/07/2022 multivit with calcium,iron,min (THSUZJITQIMB-BY-OGCQ- MINERALS ORAL) Take by mouth. 09/07/2022 omeprazole [...] AM EST Office Visit Dermatology at [facility] [address] [place] [address] Charu Martin MD [facility] [place] [address] 11/16/2024 1:00 PM EST Office Visit [place] [address] Paula Harris PA [facility] [place] [address] 01/26/2025 9:50 AM EDT Appointment Mammography/[place] [address] Joan Deutsch, GE [facility] [place] [address] 01/26/2025 10:30 AM EDT Office Visit [place] [address] Joan Deutsch, GE [facility] [place] [address] documented as of this encounter Procedures Procedure Name Priority Date/Time Associated Diagnosis Comments MAMMO SCREENING CAD AND IRVIN BILATERAL Routine 12/11/2019 11:36 AM EDT History of breast cancer documented in this encounter Results * Mammo Screening Cad and Irvin Bilateral (12/11/2019 11:36 AM EDT) Anatomical Region [...] below. ? Electronically signed by: Beata Narayan [facility] ([phone]), at 12/11/2019 11:59 AM Karin Webb APRN IMG MAMMO ORD ERABLES documented in this encounter Visit Diagnoses Diagnosis History of breast cancer Personal history of malignant neoplasm of breast documented in this encounter Care Teams Panel Edge Painter Relationship Specialty Start Date End Date Mariluz Watts MD [address] [place] [address] PCP - General 08/22/10 documented as of this encounter
--- OUTSIDE RECORDS SUMMARY | 2024-07-02 16:33 | XMS_ITS | Encounter Summary ---
[place] [address] Care Team Providers Care Footwear Sales Associate Name Role Phone Mariluz Watts MD Primary Care Provider [phone] Encounter Details Date Type Department Care Team (Late st Contact Info) Description 10/04/2020 Telephone [place] [address] Emily Crowley LNA Social History Tobacco Use [...] 8:20 AM EST Office Visit Dermatology at [facility] [address] [place] [address] Charu Martin MD [facility] [place] [address] 11/16/2024 1:00 PM EST Office Visit [place] [address] Paula Harris PA [facility] [place] [address] 01/26/2025 9:50 AM EDT Appointment Mammography/[place] [address] Joan Deutsch PROJECT DESIGNER [facility] [place] [place] [address] 01/26/2025 10:30 AM EDT Office Visit [place] [address] Joan Deutsch PROJECT DESIGNER [facility] [place] [place] [address] documented as of this encounter Visit Diagnoses Not on filedocumented in this encounter Care Teams Footwear Sales Associate Relationship Specialty Start Date End Date Mariluz Watts MD [address] [place] [address] [address] [place] [address] PCP - General 08/22/10 documented as of this encounter
--- OUTSIDE RECORDS SUMMARY | 2024-07-02 16:33 | XMS_ITS | Encounter Summary ---
Author Organization [facility] [place] [address] Care Team Providers Care Nurse Practitioner Adult Name Role Phone Mariluz Watts MD Primary Care Provider Reason for Referral * Diagnostic Test (Routine) - Closed Specialty Diagnoses / Procedures Referred By John lyons Referred To Contact Radiology Diagnoses Osteopenia of left forearm Procedures DXA Central Spine, Hip, and/or Whole Body (Generic) Abrahan Merlos MD [facility] DR HEMATOLOGY/[place] [address] [facility] Rad Xray [address] [place] [address] [place] [address] Referral ID Status Reason Start Date Expiration Date V isits Requested Visits Authorized [id number] Closed Specialty Service Requested 12/22/2020 06/24/2022 1 1 Reason for Visit * Reason Comments Follow-up Encounter Details Date Type Department Care Team (Late st Contact Info) Description 12/22/2020 3:00 PM EDT Office Visit Hematology and Oncology at [facility] [place] [address] Abrahan Merlos MD [facility] HEMATOLOGY/[place] [address] Lydia Ceja DO [facility] HEMATOLOGY/[place] [address] Malignant neoplasm of right breast, stage 2; [...] vesicare. She is also seeing PT at [facility] and that is also helping. She takes [...] Lydia Ceja, Fellow, Hematology and Medical Oncology [facility] Pager: [phone], 12/21/20, 1:59 PM Heme-Onc Staff ?? I [...] has any concerns. ?? Abrahan Merlos MD [facility] in Hematology-Oncology documented in this encounter Plan of Treatment Upcoming Encounters Date Type Department Care Team (Late st Contact Info) Description 08/05/2024 8:20 AM EST Office Visit Dermatology at [address] [address] Charu Martin MD [facility] DR [place] [address] 11/16/2024 1:00 PM EST Office Visit [place] [address] Paula Harris PA [facility] [place] [address] 01/26/2025 9:50 AM EDT Appointment Mammography/[place] [address] Joan Deutsch APRN [facility] [place] [address] 01/26/2025 10:30 AM EDT Office Visit [place] [address] Joan Deutsch APRN [facility] [place] [address] documented as of this encounter Results * [...] BMD measurements and plots are available in EC[employer]ential under the imaging tab. Paper copies will be sent to providers without Medipacs access. If you have received this report without the data sheet and do not have access to Medipacs, please contact Radiology Communications Project Lead at [phone] Saturday thru Saturday 8am-4pm. Thank you for letting us participate in the care of this patient. ??If you are a health care provider and have any questions regarding this report, please contact the number below. ??For patients who have questions please contact the health direct care specialist that requested your imaging first. ? Electronically signed by: Juan Antonio Ibarra MD, [facility] ([phone]), at 12/26/2021 12:42 PM Narrative 12/26/2021 12:42 [...] previous, 0.086 ??g/cm2 (9.9 %) increase. At [facility], least significant change for bone [...] previous, 0.086 g/cm2 (9.9 %) increase. At [facility], least significant change for bonemineral [...] BMD measurements and plots are available in EKloudCatchunder the imaging tab. Paper copies will be sent to providers without Medipacs access.If you have received this report without the data sheet and do not haveaccess to ECosential, please contact Radiology Communications Project Lead at [phone] Saturday thruFriday 8am-4pm. Thank you for letting us participate in the care of this patient. If youare a health care provider and have any questions regarding this report,please contact the number below. For patients who have questions please contactthe health direct care specialist that requested your imaging first. Electronically signed by: Juan Antonio Ibarra MD, [facility]([phone]), at 12/26/2021 12:42 PM Abrahan Merlos MD IMG DEXA ORDERABLES documented in this encounter Visit Diagnoses Diagnosis Malignant neoplasm of right breast, stage 2 Osteopenia of left forearm Osteopenia of left forearm documented in this encounter Care Teams Nurse Practitioner Adult Relationship Specialty Start Date End Date Mariluz Watts MD [address] [place] [address] 1 [place] [address] PCP - General 08/22/10 documented as of this encounter
--- OUTSIDE RECORDS SUMMARY | 2024-07-02 16:33 | XMS_ITS | Encounter Summary ---
[place] [address] Care Team Providers Care Keller Machine Operator Name Role Phone Mariluz Watts MD Primary Care Provider [phone] Reason for Visit * Reason Comments Dermatochalasis Encounter Details Date Type Department Care Team (Latest Contact Info) Description 07/22/2019 10:50 AM EDT Office [place] [address] Debbi Green MD [facility] [place] [address] Dermatochalasis of both upper eyelids Social History [...] 8:20 AM EST Office Visit Dermatology at [address] [address] Charu Martin MD [facility] DR [place] [place] [address] 11/16/2024 1:00 PM EST Office [place] [address] Paula Harris PA [facility] [place] [address] 01/26/2025 9:50 AM EDT Appointment Mammography/[place] [address] Joan Deutsch APRN [facility] [place] [address] 01/26/2025 10:30 AM EDT Office [place] [address] Joan Deutsch APRN [facility] [place] [address] documented as of this encounter Procedures Procedure [...] eyelids documented in this encounter Care Teams Keller Machine Operator Relationship Specialty Start Date End Date Mariluz Watts MD [address] [place] [address] PCP - General 08/22/10 documented as of this encounter
--- OUTSIDE RECORDS SUMMARY | 2024-07-02 16:33 | XMS_ITS | Encounter Summary ---
[place] [address] Care Team Providers Care Small Animal Veterinarian Name Role Phone Mariluz Watts MD Primary Care Provider [phone] Encounter Details Date Type Department Care Team (Late st Contact Info) Description 05/26/2019 Telephone Hematology [place] [address] Laisha Grady RN Social History Tobacco Use [...] Gaming Gender (Pref): Female 73 y.o., 1945 *[phone] (Home Phone) HCA: Not Active Need Meeting Facilitator: Date of Encounter: May 26, 2019 T/C [...] call PT at home to advise at [phone]. Thanks for your time, Natalya documented in this encounter Plan of Treatment Upcoming Encounters Date Type Department Care Team (Late st Contact Info) Description 08/05/2024 8:20 AM EST Office Visit Dermatology at [address] [address] Charu Martin MD [facility] [place] [address] 11/16/2024 1:00 PM EST Office Visit [place] [address] Paula Harris, PA [facility] [place] [place] [address] 01/26/2025 9:50 AM EDT Appointment Mammography/[place] [address] Joan Deutsch APRN [facility] [place] [place] [address] 01/26/2025 10:30 AM EDT Office Visit [place] [address] Joan Deutsch, [facility] [place] [address] documented as of this encounter Visit Diagnoses Not on filedocumented in this encounter Care Teams Small Animal Veterinarian Relationship Specialty Start Date End Date Mariluz Watts MD [address] [place] [address] [address] [facility] 1 [place] [address] PCP - General 08/22/10 documented as of this encounter
--- OUTSIDE RECORDS SUMMARY | 2024-07-02 16:33 | XMS_ITS | Encounter Summary ---
Author Organization [facility] [place] [address] Care Team Providers Care Food Service Order Clerk Name Role Phone Mariluz Watts MD Primary Care Provider [phone] Encounter Details Date Type Department Care Team (Latest Contact Info) Description 12/22/2020 12:47 PM EDT - 12/22/2020 11:59 PM EDT Hospital Encounter Mammography[place] [address] Joan Deutsch, RECEIVER BULK SYSTEM [facility] [place] [address] History of breast cancer Discharge Disposition: Home [...] Take 4 mg by mouth daily. 01/15/2023 BJRVJYD-SUKPOFJWA-ZTMI ORAL Take 1 caplet by mouth daily. [...] daily as needed. 09/07/2022 multivit with calcium,iron,min (GXJWKCBVDUKZ-IP-KKGP- MINERALS ORAL) Take by mouth. 09/07/2022 acetaminophen [...] 8:20 AM EST Office Visit Dermatology at [facility] [address] [place] [address] Charu Martin MD [facility] DR [place] [address] 11/16/2024 1:00 PM EST Office [place] [address] Paula Harris PA [facility] [place] [address] 01/26/2025 9:50 AM EDT Appointment Mammography/[place] [address] Joan Deutsch, [facility] [place] [address] 01/26/2025 10:30 AM EDT Office [place] [address] Joan Deutsch, [facility] [place] [address] documented as of this encounter Procedures Procedure [...] care of this patient. ? Joan Deutsch RECEIVER BULK SYSTEM IMG MAMMO ORDERABLE S documented in this encounter Visit Diagnoses Diagnosis History of breast cancer Personal history of malignant neoplasm of breast documented in this encounter Care Teams Food Service Order Clerk Relationship Specialty Start Date End Date Mariluz Watts MD [address] [place] [address] PCP - General 08/22/10 documented as of this encounter
--- OUTSIDE RECORDS SUMMARY | 2024-07-02 16:33 | XMS_ITS | Encounter Summary ---
Author Organization Formerly [facility] [place] [address] Care Team Providers Care Take Off Worker Name Role Phone Mariluz Watts MD Primary Care Provider [phone] Reason for Referral * Diagnostic Test (Routine) - Closed Specialty Diagnoses / Procedures Referred By Contac t Referred To Contact Radiology Diagnoses Osteopenia of multiple sites Procedures DXA Central-Spine, Hip, And/Or Whole Body (Generic) Abrahan Merlos MD [facility] HEMATOLOGY/[place] [address] [facility] Rad Xray [address] [place] [address] [place] [id number] Referral ID Status Reason Start Date Expiration Date V isits Requested Visits Authorized [id number] Closed Specialty Service Requested 12/26/2018 12/26/2019 1 1 Reason for Visit * Diagnostic Test (Routine) - Closed Specialty Diagnoses / Procedures Referred By Contac t Referred To Contact Radiology Diagnoses Osteopenia of multiple sites Procedures DXA Central-Spine, Hip, And/Or Whole Body (Generic) Abrahan Merlos MD [facility] HEMATOLOGY/[place] [address] [facility] Rad Xray [address] [place] [address] [place] [id number] Referral ID Status Reason Start Date Expiration Date V isits Requested Visits Authorized [id number] Closed Specialty Service Requested 12/26/2018 12/26/2019 1 1 Encounter Details Date Type Department Care Team (Latest Contact Info) Description 12/11/2019 10:41 AM EDT Hospital Encounter XRay at [address] [place] [phone] Abrahan Merlos MD [facility] HEMATOLOGY/[place] [address] Osteopenia of multiple sites Discharge [...] daily as needed. 09/07/2022 multivit with calcium,iron,min (XVBODRGMYHPS-SW-GGHB-M INERALS ORAL) Take by mouth. 09/07/2022 omeprazole [...] 8:20 AM EST Office Visit Dermatology at [address] [address] Charu Martin MD [facility] [place] [address] 11/16/2024 1:00 PM EST Office [place] [address] Paula Harris PA [facility] [place] [address] 01/26/2025 9:50 AM EDT Appointment Mammography/[place] [address] Joan Deutsch APRN [facility] [place] [address] 01/26/2025 10:30 AM EDT Office [place] [address] Joan Deutsch APRN [facility] [place] [address] documented as of this encounter Procedures Procedure [...] BMD measurements and plots are available in [employer] under the imaging tab. Paper copies will be sent to providers without E- access. If you have received this report without the data sheet and do not have access to [employer], please contact Radiology Technology Sales Representative at [phone] Saturday thru Saturday 8am-4pm. Thank you for letting us participate in the care of this patient. For questions regarding this report, please contact the number below. ? Electronically signed by: Jesusita Nazario [facility] ([phone]), at 12/11/2019 11:47 AM Narrative 12/11/2019 11:47 [...] baseline, 0.042 g/cm2 (4.6 %) decrease. At [facility], least significant change for bone [...] baseline, 0.042 g/cm2 (4.6 %) decrease. At [facility], least significant change for bonemineral [...] BMD measurements and plots are available in [employer] the imaging tab. Paper copies will be sent to providers without [employer] access.If you have received this report without the data sheet and do not haveaccess to [facility], [facility], please contact Radiology Technology Sales Representative at [phone] Saturday thruFriday 8am-4pm. Thank you for letting us participate in the care of this patient. Forquestions regarding this report, please contact the number below. Electronically signed by: Jesusita Nazraio [facility]([phone]), at 12/11/2019 11:47 AM Abrahan Merlos MD IMG DEXA ORDERABLES documented in this encounter Visit Diagnoses Diagnosis Osteopenia of multiple sites documented in this encounter Care Teams Take Off Worker Relationship Specialty Start Date End Date Mariluz Watts MD [address] [place] [address] PCP - General 08/22/10 documented as of this encounter
--- OUTSIDE RECORDS SUMMARY | 2024-07-02 16:33 | XMS_ITS | Encounter Summary ---
[place] [address] Care Team Providers Care Cyber Intelligence Analyst Name Role Phone Mariluz Watts MD Primary Care Provider [phone] Encounter Details Date Type Department Care Team (Late st Contact Info) Description 12/26/2021 1:00 PM EDT Office [place] [address] Joan Deutsch APRN [facility] [place] [address] Encounter for screening mammogram for breast cancer; [...] carcinoma with lobular features Tumor Grade: Intermediate Ylekgt-Qtuea-Ucytrcrwdi Score: 7 Tubular Differentiation: 3 Mitotic Rate: [...] sentinel nodes: 2 (Specimen A - Right Grandy node) No. positive for carcinoma: 1 (H&E) [...] 8:20 AM EST Office Visit Dermatology at [facility] [address] [place] [address] Charu Martin MD [facility] DR [place] [place] [address] 11/16/2024 1:00 PM EST Office Visit General Surgery at [place] [address] Paula Harris PA [facility] [place] [place] [address] 01/26/2025 9:50 AM EDT Appointment Mammography/[place] [address] Joan Deutsch [facility] [address] 01/26/2025 10:30 AM EDT Office Visit General Surgery at [place] [address] Joan Deutsch [facility] [address] documented as of this encounter Visit Diagnoses Diagnosis Encounter for screening mammogram for breast cancer History of breast cancer Personal history of malignant neoplasm of breast documented in this encounter Care Teams Cyber Intelligence Analyst Relationship Specialty Start Date End Date Mariluz Watts MD [address] [place] [address] PCP - General 08/22/10 documented as of this encounter
--- OUTSIDE RECORDS SUMMARY | 2024-07-02 16:33 | XMS_ITS | Encounter Summary ---
Author Organization [facility] Address [facility] [place] [address] Care Team Providers Care Channel Lip Wetter Name Role Phone Mariluz Watts MD Primary Care Provider [phone] Reason for Visit * Physical Therapy (Routine) - Closed Specialty Diagnoses / Procedures Referred By John lyons Referred To Contact Physical Therapy Diagnoses OAB (overactive bladder) Bella Keenan MD [facility] [place] [address] [facility] Pt Rehab [address] [place] [address] Referral ID Status Reason Start Date Expiration Date V isits Requested Visits Authorized [id number] Closed Evaluate and Treat 10/11/2020 10/11/2021 12 12 Encounter Details Date Type Department Care Team (Latest Contact Info) Description 12/08/2020 11:00 AM EST Office Visit Rehab PT at [facility] [address] [place] [address] Shaila Rendon PT OAB (overactive [...] surgery a month ago, now in regular [facility] moccasin. Was able to walk around the [...] LE, ?? []? Strengthening []?TrA Set, with []?[facility] TrA level []? ?? Self-care/Trainin min []? [...] holding. ?? 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 ? MET date Thermoplastic Technician Therapy Goals (6 months, 05/23/2021) 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... [...] [facility] [address] [place] [address] Charu Martin MD [facility] [place] [address] 11/16/2024 1:00 PM EST Office [place] [address] Paula Harris PA [facility] [place] [address] 01/26/2025 9:50 AM EDT Appointment Mammography/[place] [address] Joan Deutsch APRN [facility] [place] [address] 01/26/2025 10:30 AM EDT Office [place] [address] Joan Deutsch [employer] [facility] [place] [address] documented as of this encounter Visit Diagnoses [...] disorder documented in this encounter Care Teams Channel Lip Wetter Relationship Specialty Start Date End Date Mariluz Watts MD [address] [facility] 1 [place] [address] PCP - General 08/22/10 documented as of this encounter
--- OUTSIDE RECORDS SUMMARY | 2024-07-02 16:33 | XMS_ITS | Encounter Summary ---
Author Organization Formerly [facility] [place] [address] Care Team Providers Care Spring Machine Operator Name Role Phone Mariluz Watts MD Primary Care Provider [phone] Reason for Visit * Reason Comments Skin Check Encounter Details Date Type Department Care Team (Late st Contact Info) Description 08/04/2020 11:00 AM EST Office Visit Dermatology at [facility] [address] [place] [address] Terry Min MD [facility] [place] [address] Neoplasm of uncertain behavior of skin; Inflamed [...] or concerns, please call the office at [phone]. If it is after 5PM, or a holiday or weekend, please call [phone] and ask for the Binitrotoluene Operator on-call. documented in this encounter Progress Notes [...] frozen with LN2. Lesion on the left yazidism that patient noticed a couple months ago. [...] daily as needed. ??? multivit with calcium,iron,min (MAIAWMOZDCEF-MQ-ALIU-MINERALS ORAL) Take by mouth. ??? omeprazole (PRILOSEC) [...] patient's lesion of concern on the left yazidism -pt reassured -advised the pt to monitor [...] by Terry Min MD Department of Dermatology [facility] documented in this encounter Plan of Treatment Upcoming Encounters Date Type Department Care Team (Late st Contact Info) Description 08/05/2024 8:20 AM EST Office Visit Dermatology at [place] [address] [place] [address] Charu Martin MD [facility] [place] [address] 11/16/2024 1:00 PM EST Office [place] [address] Paula Harris PA [facility] [place] [address] 01/26/2025 9:50 AM EDT Appointment Mammography/DXA at [place] [phone] Joan Deutsch, GE [facility] [place] [address] 01/26/2025 10:30 AM EDT Office Visit General Surgery at [place] [phone] Joan Deutsch, GE [facility] [place] [address] documented as of this encounter Procedures Procedure Name Priority Date/Time Associated Diagnosis Comments SPECIMEN TO PATHOLOGY Routine 08/04/2020 11:16 AM EST Neoplasm of uncertain behavior of skin SURGICAL PATHOLOGY REPORT Routine 08/04/2020 11:09 AM EST documented in this encounter Results * Specimen to Pathology (08/04/2020 11:16 AM EST) AP Specimen 08/04/2020 11:1 6 AM EST 08/04/2020 3:35 PM EST Narrative [facility] - 08/04/2020 3:36 PM EST Specimen requisition ordered. ??Separate Pathology report to follow Resulting Agency Comment Spec In Lab Terry Min MD PATHOLOGY/CYTOLOGY O JOSELUIS [facility] [place] [address] * Surgical Pathology Report (08/04/2020 11:09 AM EST) Final Diagnosis [id number] ? Location: [facility] The signing pathologist has (i) examined the relevant preparation(s) for the specimen(s) and (ii) rendered or confirmed the diagnosis(es). . ?Surgical Pathology DIAGNOSIS Central upper back, skin shave biopsy: - ??Lichenoid keratosis , multiple deeper levels examined Electronically signed by: ??Mike STEINER, PhD, Afshan Verified: ??08/10/2020 ?Dermatopathol ogist Performed at: ??-[facility] Dept. of Pathology, [place], [place] SPECIMEN(S) SUBMITTED A - Central upper [...] labeled A1. ??PPS 08/10/2020 4:07 PM EST [facility] SPECIMEN FROM SKIN / Unknown 08/04/2020 11:09 AM EST 08/04/2020 11:09 AM EST Terry Min MD PATHOLOGY/CYTOLOGY O RDERABLES [facility] [place] [address] documented in this encounter Visit Diagnoses Diagnosis Neoplasm of uncertain behavior of skin Inflamed seborrheic keratosis Multiple benign nevi Benign neoplasm of skin, site unspecified Folliculitis Other specified disease of hair and hair follicles documented in this encounter Care Teams Spring Machine Operator Relationship Specialty Start Date End Date Mariluz Watts MD [address] [facility] 1 [place] [address] PCP - General 08/22/10 documented as of this encounter
--- OUTSIDE RECORDS SUMMARY | 2024-07-02 16:34 | XMS_ITS | Encounter Summary ---
Author Organization [facility] [place] [address] Care Team Providers Care Seamless Hosiery Knitter Name Role Phone Mariluz Watts MD Primary Care Provider [phone] Encounter Details Date Type Department Care Team (Late st Contact Info) Description 09/18/2018 12:15 PM EST [place] [address] Social History Tobacco Use Types Packs/Day Years [...] at [facility] [address] [place] [address] Charu Martin MD [facility] [place] [address] 11/16/2024 1:00 PM EST Office Visit General Surgery at [place] [address] Paula Harris, [facility] [facility] [place] [address] 01/26/2025 9:50 AM EDT Appointment Mammography/[place] [address] Joan Deutsch, GE [facility] [place] [address] 01/26/2025 10:30 AM EDT Office [place] [address] Joan Deutsch, GE [facility] [place] [address] documented as of this encounter Visit Diagnoses Not on filedocumented in this encounter Care Teams Seamless Hosiery Knitter Relationship Specialty Start Date End Date Mariluz Watts MD [address] [place] [address] PCP - General 08/22/10 documented as of this encounter
--- OUTSIDE RECORDS SUMMARY | 2024-07-02 16:34 | XMS_ITS | Encounter Summary ---
[place] [address] Care Team Providers Care Equipment Maintenance Supervisor Name Role Phone Mariluz Watts MD Primary Care Provider [phone] Reason for Referral * Consultation (Routine) - Closed Specialty Diagnoses / Procedures Referred By John lyons Referred To Contact Gastroenterology Diagnoses Iron deficiency anemia, unspecified iron deficiency anemia type Pt having iron infusions currently and knee replacement surgery was postponed because of MAEVE. Procedures Call pt back at [phone]. Okay to leave msg. Alvin Sin MD [facility] DR HEMATOLOGY/[place] [address] [facility] Endoscopy [address] [place] [address] Referral ID Status Reason Start Date Expiration Date V isits Requested Visits Authorized [id number] Closed Consult, Test & Treat 10/03/2018 10/03/2019 1 1 Reason for Visit * Consultation (Urgent) - Closed Specialty Diagnoses / Procedures Referred By John lyons Referred To Contact Hematology and Oncology Diagnoses Primary osteoarthritis of left knee Hypochromic microcytic anemia Bleeding diathesis IRON DEFICIENCY ANEMIA Vic Olivas MD [facility] [place] [address] [facility] Hem Onc [address] [place] [address] Referral ID Status Reason Start Date Expiration Date V isits Requested Visits Authorized [id number] Closed Consult, Test & Treat [facility] 09/19/2018 09/19/2019 1 1 Encounter Details Date Type Department Care Team (Late st Contact Info) Description 10/03/2018 10:00 AM EST Office Visit Hematology [place] [address] Charity De La Cruz MD [facility] DR HEMATOLOGY [place] [address] Maricarmen Martins, Alvin Romero MD [facility] HEMATOLOGY/[place] [address] Iron deficiency anemia, unspecified iron deficiency anemia [...] were not included. [facility] [place] [address] HEMOSTASIS CONSULTATION DATE OF VISIT 10/03/2018 Patient [...] OB RN - Home area -lives in [facility] with her son REVIEW OF [...] Cruz. Alvin Valladares MD Hematology/Oncology fellow Pager [phone]*+*+*+*+*+*+*+*+*+*+*+*+*+*+*+*+*+*+*+*+*+*+*+*+*+*+*+*+*+*+*+*+*+*+*+*+*+* Hemostasis Attending Physician I have independently [...] GI bleeding. Charity De La Cruz MD Gluer Machine Operator, [facility] * Charity De La Cruz MD - 10/03/2018 10:00 AM EST Images from the original note were not included. [facility] Hemophilia [place] [address] +*+*+*+*+*+*+*+*+*+*+*+*+*+*+*+*+*+*+*+*+*+*+*+*+*+*+*+*+*+*+*+*+*+*+*+*+*+* Hemostasis Attending Physician I have independently [...] GI bleeding. Charity De La Cruz MD Gluer Machine Operator, [facility] documented in this encounter Plan of Treatment Upcoming Encounters Date Type Department Care Team (Late st Contact Info) Description 08/05/2024 8:20 AM EST Office Visit Dermatology at [place] [address] [place] [address] Charu Martin MD [facility] [place] [address] 11/16/2024 1:00 PM EST Office [place] [address] Paula Harris PA [facility] [place] [place] [address] 01/26/2025 9:50 AM EDT Appointment Mammography[place] [address] Joan Deutsch APRN [facility] [place] [place] [address] 01/26/2025 10:30 AM EDT Office [place] [address] Joan Deutsch APRN [facility] [place] [address] Scheduled Referrals Name Type Priority Associated Diagnoses Order Schedule Referral to Gastroenterology Outpatient Referral Routine Iron deficiency anemia, unspecified iron deficiency anemia type Ordered: 10/03/2018 documented as of this encounter Results * Ferritin (11/28/2018 10:20 AM EST) Ferritin 110 30 - 400 ng/mL [facility] Comment: Pediatric reference ranges not verified at [facility], interpret with caution. Reference ranges for females greater than 50 years of age approach values for men, i.e., 30-400 ng/mL. Blood specimen (specimen) 11/28/2018 10:20 AM EST 11/28/2018 10:35 AM EST Narrative Resulting Agency Comment Spec In Lab Charity De La Cruz MD CHEMISTRY ORDERABL ES [facility] [place] [address] documented in this encounter Visit Diagnoses Diagnosis Iron deficiency anemia, unspecified iron deficiency anemia type documented in this encounter Care Teams Equipment Maintenance Supervisor Relationship Specialty Start Date End Date Mariluz Watts MD [address] [place] [address] PCP - General 08/22/10 documented as of this encounter
--- OUTSIDE RECORDS SUMMARY | 2024-07-02 16:34 | XMS_ITS | Encounter Summary ---
[place] [address] Care Team Providers Care Clerical Supervisor Name Role Phone Mariluz Watts MD Primary Care Provider [phone] Encounter Details Date Type Department Care Team (Latest Contact Info) Description 09/18/2018 11:40 AM EST Clinical [place] [address] Primary osteoarthritis of left knee Social History [...] EST Office Visit Dermatology at [facility] [address] [place] [address] Charu Martin MD [facility] DR [place] [place] [address] 11/16/2024 1:00 PM EST Office [place] [address] Paula Harris PA [facility] [place] [address] 01/26/2025 9:50 AM EDT Appointment Mammography/[place] [address] Joan Deutsch APRN [facility] [place] [address] 01/26/2025 10:30 AM EDT Office [place] [address] Joan Deutsch APRN [facility] [place] [address] documented as of this encounter Procedures Procedure [...] (Bezet) 412 ms MUSE SYSTEM Calculated P [place] 57 degrees MUSE SYSTEM Calculated R [place] -31 degrees MUSE SYSTEM Calculated T [place] 52 degrees MUSE SYSTEM INTERPRETATION Sinus rhythm [...] leg documented in this encounter Care Teams Clerical Supervisor Relationship Specialty Start Date End Date Mariluz Watts MD [address] [place] [address] PCP - General 08/22/10 documented as of this encounter
--- OUTSIDE RECORDS SUMMARY | 2024-07-02 16:34 | XMS_ITS | Encounter Summary ---
[place] [address] Care Team Providers Care Bioinformatician Name Role Phone Mariluz Watts MD Primary Care Provider [phone] Reason for Visit * Reason Comments Anemia Encounter Details Date Type Department Care Team (Latest Contact Info) Description 10/17/2018 9:30 AM EST - 10/17/2018 11:59 PM EST Hospital Encounter Hematology [place] [address] Iron deficiency anemia, unspecified iron deficiency anemia [...] 8:20 AM EST Office Visit Dermatology at [place] [address] [place] [address] Charu Martin MD [facility] [place] [address] 11/16/2024 1:00 PM EST Office [place] [address] Paula Harris PA [facility] [place] [address] 01/26/2025 9:50 AM EDT Appointment Mammography/[place] [address] Joan Deutsch APRN [facility] [place] [address] 01/26/2025 10:30 AM EDT Office [place] [address] Joan Deutsch APRN [facility] [place] [address] documented as of this encounter Visit Diagnoses [...] mg documented in this encounter Care Teams Bioinformatician Relationship Specialty Start Date End Date Mariluz Watts MD [address] [place] [address] [address] [facility] 1 [place] [address] PCP - General 08/22/10 documented as of this encounter
--- OUTSIDE RECORDS SUMMARY | 2024-07-02 16:34 | XMS_ITS | Encounter Summary ---
Author Organization [place] [address] Care Team Providers Care Palliative Care Coordinator Name Role Phone Mariluz Watts MD Primary Care Provider [phone] Encounter Details Date Type Department Care Team (Late st Contact Info) Description 11/06/2018 1:00 PM EST - 11/06/2018 2:00 PM EST Surgery [place] [address] Charisma Aguayo MD [facility] [place] [address] EGD, UPPER GI ENDOSCOPY (WRVU 2.09) Social [...] better as expected. Saturday-Saturday Same Day Endo [phone] Otherwise contact [phone] and ask to speak to the director radiation oncology instructional aide Follow-up care is a hanna part of [...] 8:20 AM EST Office Visit Dermatology at [facility] [address] [place] [address] Charu Martin MD [facility] [place] [address] 11/16/2024 1:00 PM EST Office Visit General Surgery at [place] [phone] Paula Harris PA [facility] [place] [address] 01/26/2025 9:50 AM EDT Appointment Mammography/[place] [address] Joan Deutsch, [facility] [address] 01/26/2025 10:30 AM EDT Office [place] [address] Joan Deutsch, [facility] [address] documented as of this encounter Procedures Procedure Name Priority Date/Time Associated Diagnosis Comments EGD, UPPER GI ENDOSCOPY (WRVU 2.09) 11/06/2018 1:07 PM EST Anemia UPPER GI ENDOSCOPY Routine 11/06/2018 12 :33 PM EST documented in this encounter Results * UPPER GI ENDOSCOPY (11/06/2018 12:33 PM EST) UPPER GI ENDOSCOPY [facility] Endoscopy Procedure Date: 11/06/2018 12:33 PM ? Patient Name: Diamond Gaming ? Date of : 1945 ? Age: 72 ? Order #: [id number] ? Instrument Name: [id number] ? Procedure: ? Upper GI endoscopy Indications: ? Iron deficiency anemia Providers: ? Charisma Aguayo MD, Ken Lang ? Ortega Donis RN, Danisha Griffin Referring : ?Mariluz Watts MD Medicines: ? Midazolam 4 [...] RN) documented in this encounter Care Teams Palliative Care Coordinator Relationship Specialty Start Date End Date Mariluz Watts MD [address] [place] [address] PCP - General 08/22/10 documented as of this encounter
--- OUTSIDE RECORDS SUMMARY | 2024-07-02 16:34 | XMS_ITS | Encounter Summary ---
Author Organization [facility] [place] [address] Care Team Providers Care Medical Support Assistant Name Role Phone Mariluz Watts MD Primary Care Provider [phone] Encounter Details Date Type Department Care Team (Latest Contact Info) Description 09/18/2018 11:40 AM EST Laboratory [place] [address] Primary osteoarthritis of left knee; Pain in [...] 8:20 AM EST Office Visit Dermatology at [facility] [address] [place] [address] Charu Martin MD [facility] [place] [address] 11/16/2024 1:00 PM EST Office [place] [address] Paula Harris PA [facility] [place] [address] 01/26/2025 9:50 AM EDT Appointment Mammography/[place] [phone] Joan Deutsch, [facility] [place] [address] 01/26/2025 10:30 AM EDT Office [place] [address] Joan Deutsch, [facility] [place] [address] documented as of this encounter Procedures Procedure Name Priority Date/Time Associated Diagnosis Comments ABORH RECHECK STATUS Routine 09/18/2018 12:41 PM EST HEMOGRAM Routine 09/18/2018 12:41 PM EST Primary osteoarthritis of left knee DIFFERENTIAL, AUTOMATED Routine 09/18/2018 12:41 PM EST Primary osteoarthritis of left knee TYPE AND SCREEN, SDP (FUTURE SURGERY, [facility] SAME DAY PROGRAM ONLY) Routine 09/18/2018 12:41 [...] 12:41 PM EST) ABORH Type Recheck Completed [facility] Blood specimen (specimen) 09/18/2018 12:41 PM EST 09/18/2018 12:59 PM EST Narrative Resulting Agency Comment Spec In Lab Shekhar Moody MD BLOOD BANK LAB ORDER SALVATORE [facility] [place] [place] [address] * (ABNORMAL) Reticulocyte Count (09/18/2018 12:41 PM EST) Reticulocyte % 1.5 0.7 - 2.5 % [facility] Retic Abs # 0.060 0.020 - 0.110 x10(6)/mcL [facility] Immature Retic% 18.4(H) 0.5 - 13.8 % [facility] Reticulated Hgb 21.5(L) 29.8 - 39.4 pg [facility] Blood specimen (specimen) Venous Draw / Unknown 09/18/2018 12:41 PM EST 09/18/2018 1:12 PM EST Narrative Resulting Agency Comment Spec In Lab Vic Olivas MD HEMATOLOGY ORDERA BLES Performing Organization Address [facility] Co de Phone Number [facility] [place] [place] [address] * (ABNORMAL) Iron and TIBC (09/18/2018 12:41 PM EST) [facility] Iron 16(L) 30 - 150 mcg/dL [facility] TIBC 490(H) 250 - 450 mcg/dL [facility] Iron Saturation 3(L) 20 - 50 % [facility] Blood specimen (specimen) Venous Draw / Unknown 09/18/2018 12:41 PM EST 09/18/2018 1:19 PM EST Narrative Resulting Agency Comment Spec In Lab Vic Olivas MD CHEMISTRY ORDERAB LES Performing Organization Address [facility] Co de Phone Number [facility] [place] [address] * Differential, Automated (09/18/2018 12:41 PM EST) [facility] Neutrophil % 54.3 % [facility] Neutrophil Absolute 3.10 1.70 - 6.10 x10(3)/[facility] Lymph % 31.1 % [facility] Lymphocytes Abs 1.8 0.9 - 3.2 x10(3)/[facility] Monocyte % 10.0 % [facility] Monocyte Abs 0.6 0.3 - 0.9 x10(3)/[facility] Eos % 3.3 % [facility] Eosinophils Abs 0.2 0.0 - 0.4 x10(3)/[facility] Basophil % 1.1 % [facility] Baso Absolute 0.1 0.0 - 0.1 x10(3)/[facility] Immature Gran % 0.20 % [facility] Comment: Immature granulocytes(IG's)percentage and absolute count will include metamyelocytes, myelocytes, and promyelocytes. Blood smears from CBCs yielding IG's will be scanned manually for concordance. If this scan disagrees with the automated IG or if promyelocytes are noted, a manual differential will be performed. Immature Gran Absolute 0.01 0.00 - 0.04 x10(3)/mcL [facility] Blood specimen (specimen) 09/18/2018 12:41 PM EST 09/18/2018 1:12 PM EST Narrative Resulting Agency Comment Spec In Lab Shekhar Moody MD HEMATOLOGY ORDERABLE S [facility] [place] [place] [address] * (ABNORMAL) Hemogram (09/18/2018 12:41 PM EST) White Blood Cell 5.7 4.0 - 9.5 x10(3)/[facility] Red Blood Cell 4.41 4.00 - 5.21 x10(6)/[facility] Hemoglobin 9.9(L) 11.7 - 15.5 gm/dL [facility] Hematocrit 33.1(L) 35.7 - 45.8 % [facility] Mean Cell Volume 75.1(L) 82.6 - 94.4 fL [facility] Mean Cell Hemoglobin 22.4(L) 27.1 - 32.0 pg [facility] Mean Cell Hemoglobin Concentration 29.9(L) 31.7 - 35.0 gm/dL [facility] Platelet 286 145 - 357 x10(3)/[facility] RDW Standard Deviation 43.3 37.0 - 46.0 [facility] RDW coefficient of variation 15.9(H) 11.5 - 14.1 % [facility] Mean Platelet Volume 12.1 7.6 - 12.9 fL [facility] NRBC% auto 0.0 % [facility] NRBC Absolute 0.000 0.000 - 0.000 x10(3)/ L [facility] Blood specimen (specimen) 09/18/2018 12:41 PM EST 09/18/2018 1:12 PM EST Narrative Resulting Agency Comment Spec In Lab Shekhar Moody MD HEMATOLOGY ORDERABLE S Performing Organization Address [facility] Co de Phone Number [facility] [place] [address] * Antibody screen (09/18/2018 12:41 PM EST) Ab Screen Interp Negative [facility] Expires at [id number] on: 10/16/2018 [facility] Blood specimen (specimen) 09/18/2018 12:41 PM EST 09/18/2018 12:59 PM EST Narrative Resulting Agency Comment Spec In Lab Shekhar Moody MD BLOOD BANK LAB ORDER SALVATORE Performing Organization Address City/[facility]/ZIP Co de Phone Number [facility] [place] [place] [address] * ABO/Rh Typing (09/18/2018 12:41 PM EST) ABORH Type O Neg [facility] Blood specimen (specimen) 09/18/2018 12:41 PM EST 09/18/2018 12:59 PM EST Narrative Resulting Agency Comment Spec In Lab Shekhar Moody MD BLOOD BANK LAB ORDER SALVATORE Performing Organization Address [facility] Co de Phone Number [facility] [place] [address] * APTT (09/18/2018 12:41 PM EST) Partial [...] MD HEMATOLOGY ORDERABLE S Performing Organization Address [facility] de Phone Number [facility] [place] [place] [address] * Prothrombin Time (09/18/2018 12:41 PM EST) Prothrombin Time 11.5 9.4 - 12.5 sec [facility] International Normalization Ratio 1.0 [facility] Comment: An INR <2.0 indicates adequate [...] MD HEMATOLOGY ORDERABLE S Performing Organization Address [facility] de Phone Number [facility] [place] [place] [address] * (ABNORMAL) Basic Metabolic Panel (non-fasting) (09/18/2018 [...] of body mass or the acutely ill. http://[employer]/TellmeGennkf eGFR 105 >=60 mL/min/1. 73 m?? [facility] Comment: The eGFR was calculated using the CKD-EPI equation. As with all creatinine based estimates of kidney function, eGFR values calculated with the CKD-EPI equation are not accurate in patients with acute kidney failure, extremes of body mass or the acutely ill. http://[employer]/DHMCnkf Blood specimen (specimen) 09/18/2018 12:41 PM EST 09/18/2018 1:12 PM EST Narrative Resulting Agency Comment Spec In Lab Shekhar Moody MD CHEMISTRY ORDERABLES Performing Organization Address City/State/[facility] Co de Phone Number [facility] [place] [address] documented in this encounter Visit Diagnoses Diagnosis Primary osteoarthritis of left knee Primary localized osteoarthrosis, lower leg Pain in extremity, unspecified extremity documented in this encounter Care Teams Medical Support Assistant Relationship Specialty Start Date End Date Mariluz Watts MD [address] [place] [address] PCP - General 08/22/10 documented as of this encounter
--- OUTSIDE RECORDS SUMMARY | 2024-07-02 16:34 | XMS_ITS | Encounter Summary ---
[place] [address] Care Team Providers Care Hand Former Name Role Phone Mariluz Watts MD Primary Care Provider Reason for Visit * Reason Comments Ptosis * Consultation (Routine) - Closed Specialty Diagnoses / Procedures Referred By John lyons Referred To Contact Ophthalmology Diagnoses eyelid disorder/needs a visual field done Mariluz Watts MD [address] [place] [address] Debbi Green MD [facility] [place] [address] Referral ID Status Reason Start Date Expiration Date V isits Requested Visits Authorized [id number] Closed Consult, Test & Treat 02/09/2019 02/09/2020 1 1 Encounter Details Date Type Department Care Team (Latest Contact Info) Description 02/11/2019 7:30 AM EDT Office [place] [address] Debbi Green MD [facility] [place] [address] Dermatochalasis of both upper eyelids Social History [...] 8:20 AM EST Office Visit Dermatology at [facility] [address] [place] [address] Charu Martin MD [facility] [place] [address] 11/16/2024 1:00 PM EST Office [place] [address] Paula Harris PA [facility] [address] 01/26/2025 9:50 AM EDT Appointment Mammography/[place] [address] Joan Deutsch, [facility] [place] [address] 01/26/2025 10:30 AM EDT Office Visit [place] [address] Joan Deutsch, [facility] [place] [address] documented as of this encounter Procedures Procedure [...] eyelids documented in this encounter Care Teams Hand Former Relationship Specialty Start Date End Date Mariluz Watts MD [address] [place] [address] PCP - General 08/22/10 documented as of this encounter
--- OUTSIDE RECORDS SUMMARY | 2024-07-02 16:34 | XMS_ITS | Encounter Summary ---
[place] [address] Care Team Providers Care Nutritional Health Coach Name Role Phone Mariluz Watts MD Primary Care Provider [phone] Encounter Details Date Type Department Care Team (Latest Contact Info) Description 11/28/2018 9:53 AM EST - 11/28/2018 10:15 AM [facility] Encounter Hematology [place] [address] Iron deficiency anemia, unspecified iron deficiency anemia [...] 8:20 AM EST Office Visit Dermatology at [address] [place] [address] [facility] DR [place] [address] 11/16/2024 1:00 PM EST Office [place] [address] [facility] [place] [address] 01/26/2025 9:50 AM EDT Appointment Mammography/[place] [phone] [facility] [place] [address] 01/26/2025 10:30 AM EDT Office [place] [address] Joan Deutsch APRN [facility] [place] [address] documented as of this encounter Procedures Procedure [...] (11/28/2018 10:20 AM EST) Plat estimate Normal [facility] RBC Morphology Abnormal [facility] Microcyte 1-5 /HPF [facility] Ovalocytes 1-5 /HPF [facility] Tear Cell 1-5 /HPF [facility] [place] Cells 1-5 /HPF [facility] Blood specimen (specimen) 11/28/2018 10:20 AM EST 11/28/2018 10:31 AM EST Narrative Resulting Agency Comment Spec In Lab Alvin Sin MD HEMATOLOGY ORDERABLE S [facility] [place] [address] * Differential, Automated (11/28/2018 10:20 AM EST) Pathologist [facility] Neutrophil % 54.8 % [facility] Neutrophil Absolute 2.86 1.70 - 6.10 x10(3)/[facility] Lymph % 31.4 % [facility] Lymphocytes Abs 1.6 0.9 - 3.2 x10(3)/[facility] Monocyte % 11.1 % [facility] Monocyte Abs 0.6 0.3 - 0.9 x10(3)/[facility] Eos % 1.5 % [facility] Eosinophils Abs 0.1 0.0 - 0.4 x10(3)/[facility] Basophil % 1.0 % [facility] Baso Absolute 0.0 0.0 - 0.1 x10(3)/[facility] Immature Gran % 0.20 % [facility] Comment: Immature granulocytes(IG's)percentage and absolute count will include metamyelocytes, myelocytes, and promyelocytes. Blood smears from CBCs yielding IG's will be scanned manually for concordance. If this scan disagrees with the automated IG or if promyelocytes are noted, a manual differential will be performed. Immature Gran Absolute 0.01 0.00 - 0.04 x10(3)/[facility] Blood specimen (specimen) 11/28/2018 10:20 AM EST 11/28/2018 10:31 AM EST Narrative Resulting Agency Comment Spec In Lab Alvin Sin MD HEMATOLOGY ORDERABLE S [facility] [place] [address] * (ABNORMAL) Hemogram (11/28/2018 10:20 AM EST) [facility] White Blood Cell 5.2 4.0 - 9.5 x10(3)/[facility] Red Blood Cell 5.74(H) 4.00 - 5.21 x10(6)/[facility] Hemoglobin 14.1 11.7 - 15.5 gm/dL [facility] Hematocrit 45.0 35.7 - 45.8 % [facility] Mean Cell Volume 78.4(L) 82.6 - 94.4 fL [facility] Mean Cell Hemoglobin 24.6(L) 27.1 - 32.0 pg [facility] Mean Cell Hemoglobin Concentration 31.3(L) 31.7 - 35.0 gm/dL [facility] Platelet 228 145 - 357 x10(3)/mc L [facility] RDW Standard Deviation 64.1(H) 37.0 - 46.0 fL [facility] RDW coefficient of variation 23.2(H) 11.5 - 14.1 % [facility] Mean Platelet Volume 11.4 7.6 - 12.9 fL [facility] NRBC% auto 0.0 % [facility] NRBC Absolute 0.000 0.000 - 0.000 x10(3)/mc L [facility] Blood specimen (specimen) 11/28/2018 10:20 AM EST 11/28/2018 10:31 AM EST Narrative Resulting Agency Comment Spec In Lab Alvin Sin MD HEMATOLOGY ORDERABLE S [facility] [place] [address] * Ferritin (11/28/2018 10:20 AM EST) [facility] Signature Ferritin 110 30 - 400 ng/mL [facility] Comment: Pediatric reference ranges not verified at [facility], interpret with caution. Reference ranges for females greater than 50 years of age approach values for men, i.e., 30-400 ng/mL. Blood specimen (specimen) 11/28/2018 10:20 AM EST 11/28/2018 10:35 AM EST Narrative Resulting Agency Comment Spec In Lab Charity De La Cruz MD CHEMISTRY ORDERABL ES [facility] [place] [address] documented in this encounter Visit Diagnoses Diagnosis Iron deficiency anemia, unspecified iron deficiency anemia type documented in this encounter Care Teams Nutritional Health Coach Relationship Specialty Start Date End Date Mariluz Watts MD [address] [place] [address] PCP - General 08/22/10 documented as of this encounter
--- OUTSIDE RECORDS SUMMARY | 2024-07-02 16:34 | XMS_ITS | Encounter Summary ---
Author Organization [facility] [place] [address] Care Team Providers Care Talent Program Manager Name Role Phone Mariluz Watts MD Primary Care Provider [phone] Encounter Details Date Type Department Care Team (Latest Contact Info) Description 11/06/2018 11:48 AM EST - 11/06/2018 3:17 PM EST Hospital Encounter [place] [address] Charisma Aguayo MD [facility] [place] [address] Discharge Disposition: Home Social History Tobacco Use [...] better as expected. Saturday-Saturday Same Day Endo [phone] 7a-8p Otherwise contact [phone] and ask to speak to the operations business partner electronics instructor Follow-up care is a hanna part of [...] 8:20 AM EST Office Visit Dermatology at [facility] [address] [place] [address] Charu Martin MD [facility] [place] [address] 11/16/2024 1:00 PM EST Office Visit General Surgery at [place] [phone] Paula Harris PA [facility] [place] [address] 01/26/2025 9:50 AM EDT Appointment Mammography/DXA at [place] [phone] Joan Deutsch APRN [facility] [place] [address] 01/26/2025 10:30 AM EDT Office Visit General Surgery at [place] [phone] Joan Deutsch, SALES AND SERVICE CONSULTANT [facility] [place] [address] documented as of this encounter Procedures Procedure Name Priority Date/Time Associated Diagnosis Comments EGD, UPPER GI ENDOSCOPY (WRVU 2.09) 11/06/2018 1:07 PM EST Anemia UPPER GI ENDOSCOPY Routine 11/06/2018 12 :33 PM EST documented in this encounter Results * UPPER GI ENDOSCOPY (11/06/2018 12:33 PM EST) UPPER GI ENDOSCOPY [facility] Endoscopy Procedure Date: 11/06/2018 12:33 PM ? Patient Name: Diamond Gaming ? Date of : 1945 ? Age: 72 ? Order #: [id number] ? Instrument Name: [id number] ? Procedure: ? Upper GI endoscopy Indications: [...] on Lizz 11/06/18 at 1312, Until Lizz 19 at 1717, [...] RN) documented in this encounter Care Teams Talent Program Manager Relationship Specialty Start Date End Date Mariluz Watts MD [address] [facility] [address] [place] [address] PCP - General 08/22/10 documented as of this encounter
--- OUTSIDE RECORDS SUMMARY | 2024-07-02 16:34 | XMS_ITS | Encounter Summary ---
[place] [address] Care Team Providers Care Transportation Maintenance Specialist Name Role Phone Mariluz Watts MD Primary Care Provider [phone] Reason for Visit * Reason Onset Date Comments Pre Procedure Call 12/03/2018 Encounter Details Date Type Department Care Team (Late st Contact Info) Description 12/03/2018 [place] [address] Shekhar Moody MD [facility] DR OR[place] [address] Pre Procedure Call Social History Tobacco Use [...] left a message for patient to call [phone] directly and schedule surgery with Dr. Moody. * Telephone Encounter - Cleo Coyne - 12/03/2018 10:59 AM EST I called and left a message for patient to call [phone] directly and schedule surgery with Dr. moody. documented in this encounter Plan of Treatment Upcoming Encounters Date Type Department Care Team (Late st Contact Info) Description 08/05/2024 8:20 AM EST Office Visit Dermatology at [address] [place] [address] Charu Martin MD [facility] [address] [place] [address] 11/16/2024 1:00 PM EST Office [place] [phone] Paula Harris PA [facility] [place] [address] 01/26/2025 9:50 AM EDT Appointment Mammography/[place] [phone] Joan Deutsch APRN [facility] [place] [address] 01/26/2025 10:30 AM EDT Office [place] [phone] Joan Deutsch APRN [facility] [place] [address] documented as of this encounter Visit Diagnoses Not on filedocumented in this encounter Care Teams Transportation Maintenance Specialist Relationship Specialty Start Date End Date Mariluz Watts MD [address] [facility] 1 [place] [address] PCP - General 08/22/10 documented as of this encounter
--- OUTSIDE RECORDS SUMMARY | 2024-07-02 16:34 | XMS_ITS | Encounter Summary ---
Author Organization [facility] [place] [address] Care Team Providers Care Cna Per Diem Name Role Phone Mariluz Watts MD Primary Care Provider [phone] Encounter Details Date Type Department Care Team (Late st Contact Info) Description 09/18/2018 11:59 PM EST Anesthesia [place] [phone] Juan Mei MD [facility] [place] [address] Anesthesia Record Procedure Summary Procedure Name Responsible [...] (Dr. Ervin) Date: Jul 22, 11-11 Surgeon: Nick Ervin MD Surgical Procedure Performed: Injection left hip with 10 cc marcaine 0.25% with epi, into skin and subcutaneous tissues (CPT [id number]) left total hip arthroplasty, anterior Hueter approach with [place] table (CPT code 97429) Left hip intraoperative radiologic examination (CPT code 31094) Amicar infusion (5 g IV load, then 1g/hr x 3 hrs) Components Used: [place] Accolade stem, size 4, 127 degrees Trident PSLcup, 52 mm, solid 32 mm ID, alumina 32-4 mm alumina head ??? Hip pain ??? S/P Right ARSLAN 03/06/2005 ([place]) SURGERY DATE: 03/06/2005 ARCADIO STEINER, NICK Angel Surgical Procedure Performed: Right total hip arthroplasty, cementless, [id number] Components Used: [place] Trident 52 shell outer diameter Femoral head 32-4 mm [place] Accolade Femoral stem size 4, 127 deg [...] hypermobility syndrome ??? GI bleeding 03/25/2011 ??? detention current use of opiate analgesic ??? 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 [place] [address] 11/16/2024 1:00 PM EST Office Visit General Surgery at [place] [phone] Paula Harris PA [facility] [place] [address] 01/26/2025 9:50 AM EDT Appointment Mammography/DXA at [place] [phone] Joan Deutsch APRN [facility] [place] [address] 01/26/2025 10:30 AM EDT Office Visit General Surgery at [place] [phone] Joan Deutsch APRN [facility] [address] documented as of this encounter Visit Diagnoses Not on filedocumented in this encounter Care Teams Cna Per Diem Relationship Specialty Start Date End Date Mariluz Watts MD [address] [place] [address] [address] [place] [address] PCP - General 08/22/10 documented as of this encounter
--- OUTSIDE RECORDS SUMMARY | 2024-07-02 16:34 | XMS_ITS | Encounter Summary ---
Author Organization [facility] [place] [address] Care Team Providers Care Transcription Name Role Phone Mariluz Watts MD Primary Care Provider Reason for Referral * Diagnostic Test (Routine) - Closed Specialty Diagnoses / Procedures Referred By John lyons Referred To Contact Radiology Diagnoses Osteopenia of multiple sites Procedures DXA Central-Spine, Hip, And/Or Whole Body (Generic) Abrahan Merlos MD [facility] DR HEMATOLOGY/[place] [address] [place] [address] Referral ID Status Reason Start Date Expiration Date V isits Requested Visits Authorized [id number] Closed Specialty Service Requested 12/26/2018 12/26/2019 1 1 Reason for Visit * Reason Comments Follow-up Encounter Details Date Type Department Care Team (Late st Contact Info) Description 12/26/2018 2:00 PM EDT Office Visit Hematology and Oncology at [facility] [place] [address] Abrahan Merlos MD [facility] DR HEMATOLOGY/[place] [address] Osteopenia of multiple sites Social History Tobacco [...] to lose weight. 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 I will see her next in followup in M 2019, and I will repeat her Dexa scan then. She knows to contact us in the interim if she has any concerns over her breast exam. Abrahan Merlos MD classified ad clerk in Hematology-Oncology documented in this encounter Plan of Treatment Upcoming Encounters Date Type Department Care Team (Late st Contact Info) Description 08/05/2024 8:20 AM EST Office Visit Dermatology at [place] [address] [place] [address] Charu Martin MD [facility] [place] [address] 11/16/2024 1:00 PM EST Office [place] [address] Paula Harris PA [facility] [place] [address] 01/26/2025 9:50 AM EDT Appointment Mammography/[place] [phone] Joan Deutsch APRN [facility] [place] [address] 01/26/2025 10:30 AM EDT Office [place] [address] Joan Deutsch APRN [facility] [place] [address] documented as of this encounter Results * [...] BMD measurements and plots are available in EInvoiceSharing under the imaging tab. Paper copies will be sent to providers without E- access. If you have received this report without the data sheet and do not have access to Screenz, please contact Radiology Line Tender at [phone] Saturday thru Saturday 8am-4pm. Thank you for [...] baseline, 0.042 g/cm2 (4.6 %) decrease. At [facility], least significant change for bone [...] baseline, 0.042 g/cm2 (4.6 %) decrease. At [facility], least significant change for bonemineral [...] BMD measurements and plots are available in Screenzunder the imaging tab. Paper copies will be sent to providers without Screenz access.If you have received this report without the data sheet and do not haveaccess to Screenz, please contact Radiology Line Tender at [phone] Saturday thruFriday 8am-4pm. Thank you for letting us participate in the care of this patient. Forquestions regarding this report, please contact the number below. Abrahan Merlos MD IMG DEXA ORDERABLES documented in this encounter Visit Diagnoses Diagnosis Osteopenia of multiple sites Osteopenia of multiple sites documented in this encounter Care Teams Transcription Relationship Specialty Start Date End Date Mariluz Watts MD [address] [place] [address] PCP - General 08/22/10 documented as of this encounter
--- OUTSIDE RECORDS SUMMARY | 2024-07-02 16:34 | XMS_ITS | Encounter Summary ---
[place] [address] Care Team Providers Care Parboiler Name Role Phone Mariluz Watts MD Primary Care Provider [phone] Encounter Details Date Type Department Care Team (Late st Contact Info) Description 10/13/2018 Telephone [place] [address] Milena Williamson Social History Tobacco Use Types [...] - 10/13/2018 12:29 PM EST [employer] [id number] Diagnosis: Anemia 1. Have you ever had a EGD before? [] YES [x] NO If Yes, Date of Last Fontanelle: If yes, did you have any problems with the procedure? [] YES [] NO Explain: What type of sedation was used: 2. Do you take any Blood Thinners? [] YES [x] NO If Yes, type: 3. Do you have a Pacemaker or Defibrillator device? [] YES [x] NO If Yes send in[employer] message to [employer] ENDO DEVICE CHECK 4. Are you a [...] 8:20 AM EST Office Visit Dermatology at [facility] [address] [place] [address] Charu Martin MD [facility] [address] 11/16/2024 1:00 PM EST Office [place] [address] Paula Harris PA [facility] [place] [address] 01/26/2025 9:50 AM EDT Appointment Mammography/[place] [address] Joan Deutsch APRN [facility] [place] [address] 01/26/2025 10:30 AM EDT Office [place] [address] Joan Deutsch APRN [facility] [place] [address] documented as of this encounter Visit Diagnoses Not on filedocumented in this encounter Care Teams Parboiler Relationship Specialty Start Date End Date Mariluz Watts MD [address] [place] [address] [address] [place] [address] PCP - General 08/22/10 documented as of this encounter
--- OUTSIDE RECORDS SUMMARY | 2024-07-02 16:34 | XMS_ITS | Encounter Summary ---
[place] [address] Care Team Providers Care Asphalt Blender Name Role Phone Mariluz Watts MD Primary Care Provider Reason for Visit * Reason Comments Anemia Encounter Details Date Type Department Care Team (Latest Contact Info) Description 10/10/2018 11:30 AM EST - 10/10/2018 11:59 PM EST Hospital Encounter [place]ematology [place] [address] Iron deficiency anemia, unspecified iron deficiency anemia [...] 8:20 AM EST Office Visit Dermatology at [place] [address] [place] [address] Charu Martin MD [facility] [address] 11/16/2024 1:00 PM EST Office [place] [address] Paula Harris PA [facility] [place] [address] 01/26/2025 9:50 AM EDT Appointment Mammography/[place] [address] Joan Deutsch APRN [facility] [place] [address] 01/26/2025 10:30 AM EDT Office [place] [address] Joan Deutsch APRN [facility] [place] [address] documented as of this encounter Visit Diagnoses [...] mg documented in this encounter Care Teams Asphalt Blender Relationship Specialty Start Date End Date Mariluz Watts MD [address] [place] [address] [address] [facility] [address] [place] [address] PCP - General 08/22/10 documented as of this encounter
--- OUTSIDE RECORDS SUMMARY | 2024-07-02 16:34 | XMS_ITS | Encounter Summary ---
[place] [address] Care Team Providers Care Student Driving Instructor Name Role Phone Mariluz Watts MD Primary Care Provider [phone] Encounter Details Date Type Department Care Team (Latest Contact Info) Description 11/28/2018 10:16 AM EST - 11/28/2018 10:20 AM [facility] Hospital Encounter [place]ematology [place] [address] Discharge Disposition: Home Social History Tobacco Use [...] 8:20 AM EST Office Visit Dermatology at [address] [address] Charu Martin MD [facility] [place] [address] 11/16/2024 1:00 PM EST Office [place] [address] Paula Harris PA [facility] [place] [address] 01/26/2025 9:50 AM EDT Appointment Mammography[place] [address] Joan Deutsch APRN [facility] [place] [address] 01/26/2025 10:30 AM EDT Office [place] [address] Joan Deutsch APRN [facility] DR GENERAL SURGERY [place] [phone] documented as of this encounter Procedures Procedure [...] AM EST) Hepatitis C Antibody Negative Negative [facility] Blood specimen (specimen) Venous Draw / Unknown 11/28/2018 10:20 AM EST 11/28/2018 10:51 AM EST Narrative Resulting Agency Comment Spec In Lab Mariluz Watts MD CHEMISTRY ORDERABLES Performing Organization Address City/[facility]/ZIP Co de Phone Number [facility] [place] [address] * Hepatitis B Core Antibody, Total (11/28/2018 10:20 AM EST) Hepatitis B Core Antibody Negative Negative [facility] Blood specimen (specimen) Venous Draw / Unknown 11/28/2018 10:20 AM EST 11/28/2018 10:51 AM EST Narrative Resulting Agency Comment Spec In Lab Mariluz Watts MD CHEMISTRY ORDERABLES Performing Organization Address City/[facility]/ZIP Co de Phone Number [facility] [place] [address] * Hepatitis B Surface Antibody (11/28/2018 10:20 AM EST) Hepatitis B Surface Antibody, Quantitative 6.5 IU/L [facility] Comment: HepB Surface Ab Quant: Unvaccinated: < 8.5 IU/L Vaccinated: > 11.5 IU/L Hepatitis B Surface Antibody Negative [facility] Comment: Patient is presumed to be not vaccinated or immune to HBV infection. Expected Results: Vaccinated: Positive Unvaccinated: Negative Blood specimen (specimen) Venous Draw / Unknown 11/28/2018 10:20 AM EST 11/28/2018 10:51 AM EST Narrative Resulting Agency Comment Spec In Lab Mariluz Watts MD CHEMISTRY ORDERABLES Performing Organization Address City/[facility]/ZIP Co de Phone Number [facility] [place] [address] * Hepatitis B Surface Antigen (11/28/2018 10:20 AM EST) Hepatitis B Surface Antigen Negative Negative [facility] Blood specimen (specimen) Venous Draw / Unknown 11/28/2018 10:20 AM EST 11/28/2018 10:51 AM EST Narrative Resulting Agency Comment Spec In Lab Mariluz Watts MD CHEMISTRY ORDERABLES Performing Organization Address City/[facility]/ZIP Co de Phone Number [facility] [place] [address] documented in this encounter Visit Diagnoses Not on filedocumented in this encounter Care Teams Student Driving Instructor Relationship Specialty Start Date End Date Mariluz Watts MD [address] [place] [address] PCP - General 08/22/10 documented as of this encounter
--- OUTSIDE RECORDS SUMMARY | 2024-07-02 16:34 | XMS_ITS | Encounter Summary ---
[place] [address] Care Team Providers Care Video Production Specialist Name Role Phone Mariluz Watts MD Primary Care Provider [phone] Encounter Details Date Type Department Care Team (Latest Contact Info) Description 03/12/2019 9:29 AM EDT - 03/12/2019 11:59 PM EDT Hospital Encounter Hematology [place] [address] Iron deficiency anemia, unspecified iron deficiency anemia [...] daily as needed. 09/07/2022 multivit with calcium,iron,min ([id number] INERALS ORAL) Take by mouth. 09/07/2022 omeprazole [...] at [facility] [address] [place] [address] Charu Martin MD [facility] [place] [address] 11/16/2024 1:00 PM EST Office [place] [address] Paula Harris PA [facility] [place] [address] 01/26/2025 9:50 AM EDT Appointment Mammography/[place] [address] Joan Deutsch [employer] [facility] GENERAL SURGERY [place] [address] 01/26/2025 10:30 AM EDT Office Visit General Surgery at [facility] [place] [address] Joan Deutsch [facility] [place] [address] documented as of this encounter Procedures Procedure Name Priority Date/Time Associated Diagnosis Comments HEMOGRAM Routine 03/12/2019 9:45 AM EDT Iron deficiency anemia, unspecified iron deficiency anemia type FERRITIN Routine 03/12/2019 9:45 AM EDT Iron deficiency anemia, unspecified iron deficiency anemia type documented in this encounter Results * Hemogram (03/12/2019 9:45 AM EDT) White Blood Cell 5.7 4.0 - 9.5 x10(3)/[facility] Red Blood Cell 5.16 4.00 - 5.21 x10(6)/[facility] Hemoglobin 14.6 11.7 - 15.5 gm/dL [facility] Hematocrit 45.8 35.7 - 45.8 % [facility] Mean Cell Volume 88.8 82.6 - 94.4 fL [facility] Mean Cell Hemoglobin 28.3 27.1 - 32.0 pg [facility] Mean Cell Hemoglobin Concentration 31.9 31.7 - 35.0 gm/dL [facility] Platelet 228 145 - 357 x10(3)/[facility] RDW Standard Deviation 44.1 37.0 - 46.0 fL [facility] RDW coefficient of variation 13.6 11.5 - 14.1 % [facility] Mean Platelet Volume 11.1 7.6 - 12.9 fL [facility] NRBC% auto 0.0 % [facility] NRBC Absolute 0.000 0.000 - 0.000 x10(3)/mcL [facility] Blood specimen (specimen) 03/12/2019 9:45 AM EDT 03/12/2019 9:50 AM EDT Narrative Resulting Agency Comment Spec In Lab Chairty De La Cruz MD HEMATOLOGY ORDERAB LES Performing Organization Address City/[facility]/ZIP Co de Phone Number [facility] [place] [address] * Ferritin (03/12/2019 9:45 AM EDT) [facility] Signature Ferritin 83 30 - 400 ng/mL [facility] Comment: Pediatric reference ranges not verified at [facility], interpret with caution. Reference ranges for females greater than 50 years of age approach values for men, i.e., 30-400 ng/mL. Blood specimen (specimen) 03/12/2019 9:45 AM EDT 03/12/2019 9:50 AM EDT Narrative Resulting Agency Comment Spec In Lab Charity De La Cruz MD CHEMISTRY ORDERABL ES Performing Organization Address [facility] Co de Phone Number [facility] [place] [address] documented in this encounter Visit Diagnoses Diagnosis Iron deficiency anemia, unspecified iron deficiency anemia type documented in this encounter Care Teams Video Production Specialist Relationship Specialty Start Date End Date Mariluz Watts MD [address] [place] [address] PCP - General 08/22/10 documented as of this encounter
--- OUTSIDE RECORDS SUMMARY | 2024-07-02 16:34 | XMS_ITS | Encounter Summary ---
[place] [address] Care Team Providers Care Police Justice Name Role Phone Mariluz Watts MD Primary Care Provider [phone] Encounter Details Date Type Department Care Team (Late st Contact Info) Description 11/28/2018 11:30 AM EST Office [place] [address] Bella Ly APRN [facility] [place] [address] History of breast cancer Social History Tobacco [...] carcinoma with lobular features Tumor Grade: Intermediate Rwxade-Ntriz-Bxkodghere Score: 7 Tubular Differentiation: 3 Mitotic Rate: [...] sentinel nodes: 2 (Specimen A - Right [place] node) No. positive for carcinoma: 1 (H&E) No. with IHC (+) cells only: 0 (cells not seen by H&E, see Note*) No. negative for carcinoma: 1 (both H&E and IHC For positive nodes: Largest kristi deposit 0.2 cm Extranodal extension Absent Estrogen/Progestin receptors: Performed on blocks C2 and C11 ER immunoreactivity: Positive (see Diagnostic hanna*) [place] immunoreactivity: Positive (see Diagnostic hanna*) HER2/shonda expression [...] 8:20 AM EST Office Visit Dermatology at [address] [place] [address] Charu Martin MD [facility] [place] [address] 11/16/2024 1:00 PM EST Office [place] [address] Paula Harris, PA [facility] [place] [address] 01/26/2025 9:50 AM EDT Appointment Mammography[place] [address] Joan Deutsch, [facility] [place] [address] 01/26/2025 10:30 AM EDT Office [place] [address] Joan Deutsch, [facility] [place] [address] documented as of this encounter Visit Diagnoses Diagnosis History of breast cancer Personal history of malignant neoplasm of breast documented in this encounter Care Teams Police Justice Relationship Specialty Start Date End Date Mariluz Watts MD [address] [place] [address] PCP - General 08/22/10 documented as of this encounter
--- OUTSIDE RECORDS SUMMARY | 2024-07-02 16:34 | XMS_ITS | Encounter Summary ---
Author Organization [facility] [place] [address] Care Team Providers Care Ranch Hand Livestock Name Role Phone Mariluz aWtts MD Primary Care Provider [phone] Encounter Details Date Type Department Care Team (Latest Contact Info) Description 07/03/2018 9:46 AM EDT - 07/03/2018 11:59 PM EDT Hospital Encounter XRay at [address] [place] [address] Shekhar Moody MD [facility] ORTHOP[place] [address] Chronic pain of both knees Discharge Disposition: [...] 8:20 AM EST Office Visit Dermatology at [address] [place] [address] Charu Martin MD [facility] DR [place] [address] 11/16/2024 1:00 PM EST Office Visit [place] [address] Paula Harris PA [facility] [place] [address] 01/26/2025 9:50 AM EDT Appointment Mammography/[place] [address] Joan Deutsch APRN [facility] [place] [address] 01/26/2025 10:30 AM EDT Office Visit [place] [address] Joan Deutsch APRN [facility] [place] [address] documented as of this encounter Procedures Procedure Name Priority Date/Time Associated Diagnosis Comments XR KNEE STANDING ALIGNMENT AP LAT [place] SKYLINE BILAT Routine 07/03/2018 10:36 AM EDT Chronic pain of both knees documented in this encounter Results * XR Knee Standing Alignment AP Lat [place] Bilat (07/03/2018 10:36 AM EDT) Anatomical Region [...] bearing position. 4 views both knees COMPARISON: 2012 FINDINGS: Standing alignment: The mechanical axis of [...] bearing position. 4 views both knees COMPARISON: 2012 FINDINGS: Standing alignment: The mechanical axis of [...] knees documented in this encounter Care Teams Ranch Hand Livestock Relationship Specialty Start Date End Date Mariluz Watts MD [address] [facility] 1 [place] [address] PCP - General 08/22/10 documented as of this encounter
--- OUTSIDE RECORDS SUMMARY | 2024-07-02 16:34 | XMS_ITS | Encounter Summary ---
[place] [address] Care Team Providers Care Spine Supervisor Name Role Phone Mariluz Watts MD Primary Care Provider [phone] Encounter Details Date Type Department Care Team (Late st Contact Info) Description 11/28/2018 10:21 AM EST - 11/28/2018 11:59 PM EST Hospital Encounter Mammography/[place] [address] Bella Ly, HEALTH AND SAFETY REPRESENTATIVE [facility] [place] [address] History of breast cancer Discharge Disposition: Home [...] AM EST Office Visit Dermatology at [address] [address] Charu Martin MD [facility] [place] [address] 11/16/2024 1:00 PM EST Office Visit [place] [address] Paula Harris PA [facility] [place] [address] 01/26/2025 9:50 AM EDT Appointment Mammography/[place] [address] Joan Deutsch, HEALTH AND SAFETY REPRESENTATIVE [facility] [place] [address] 01/26/2025 10:30 AM EDT Office Visit General Surgery at [facility] [place] [address] Joan Deutsch, HEALTH AND SAFETY REPRESENTATIVE [facility] [place] [address] documented as of this encounter Procedures Procedure [...] BIRADS CATEGORY 2: Benign findings. * ??The [employer] and The Society of [...] contact the number below. ? Bella Ly HEALTH AND SAFETY REPRESENTATIVE [facility] ORDERA BLES documented in this encounter Visit Diagnoses Diagnosis History of breast cancer Personal history of malignant neoplasm of breast documented in this encounter Care Teams Spine Supervisor Relationship Specialty Start Date End Date Mariluz Watts MD [address] [place] [address] PCP - General 08/22/10 documented as of this encounter
--- OUTSIDE RECORDS SUMMARY | 2024-07-02 16:34 | XMS_ITS | Encounter Summary ---
Author Organization [facility]ly [facility] [place] [address] Care Team Providers Care Hydroelectric Component Machinist Name Role Phone Mariluz Watts MD Primary Care Provider [phone] Encounter Details Date Type Department Care Team (Late st Contact Info) Description 03/10/2019 Telephone [place] [address] Daylin Waldrop PA [facility] [place] [address] Social History Tobacco Use Types Packs/Day Years [...] 8:20 AM EST Office Visit Dermatology at [facility] [address] [place] [address] Charu Martin MD [facility] [address] [place] [address] 11/16/2024 1:00 PM EST Office Visit General Surgery at [place] [phone] Paula Harris PA [facility] [place] [address] 01/26/2025 9:50 AM EDT Appointment Mammography/DXA at [place] [phone] Joan Deutsch, [facility] [place] [address] 01/26/2025 10:30 AM EDT Office Visit General Surgery at [place] [phone] Joan Deutsch, [facility] [place] [address] documented as of this encounter Visit Diagnoses Not on filedocumented in this encounter Care Teams Hydroelectric Component Machinist Relationship Specialty Start Date End Date Mariluz Watts MD [address] [place] [address] [address] [facility] [address] [place] [address] PCP - General 08/22/10 documented as of this encounter
--- OUTSIDE RECORDS SUMMARY | 2024-07-02 16:34 | XMS_ITS | Encounter Summary ---
Author Organization [facility] [place] [address] Care Team Providers Care Box Truck Washer Name Role Phone Mariluz Watts MD Primary Care Provider [phone] Reason for Visit * Reason Comments Follow-up Encounter Details Date Type Department Care Team (Late st Contact Info) Description 03/12/2019 9:15 AM EDT Office Visit Hematology [place] [address] Charity De La Cruz MD [facility] [place] [address] Pancho Singleton MD [facility] HEMATOLOGY/[place] [address] Iron deficiency anemia, unspecified iron deficiency anemia [...] were not included. [facility] [place] [address] HEMOSTASIS FOLLOW UP DATE OF VISIT 03/12/2019 [...] her labs showed resolution of anemia and pentecostalism of iron stores (H/H 14.2/45 and ferritin [...] daily as needed. ??? multivit with calcium,iron,min ([id number]-VJPJ-MINERALS ORAL) Take by mouth. ??? omeprazole (PRILOSEC) [...] OB RN - Home area -lives in [facility] with her son REVIEW OF [...] as appropriate. Charity De La Cruz MD Brake Repairer Hydraulic, [facility] documented in this encounter Plan of Treatment Upcoming Encounters Date Type Department Care Team (Late st Contact Info) Description 08/05/2024 8:20 AM EST Office Visit Dermatology at [place] [address] [place] [address] Charu Martin MD [facility] [place] [address] 11/16/2024 1:00 PM EST Office Visit [place] [address] Paula Harris PA [facility] [place] [address] 01/26/2025 9:50 AM EDT Appointment Mammography/[place] [address] Joan Deutsch, DIRECTOR OF REIMBURSEMENT [facility] [place] [address] 01/26/2025 10:30 AM EDT Office [place] [address] Joan Deutsch, GE [facility] [place] [address] documented as of this encounter Results * Ferritin (03/12/2019 9:45 AM EDT) [facility] Ferritin 83 30 - 400 ng/mL [facility] Comment: Pediatric reference ranges not verified at [facility], interpret with caution. Reference ranges for females greater than 50 years of age approach values for men, i.e., 30-400 ng/mL. Blood specimen (specimen) 03/12/2019 9:45 AM EDT 03/12/2019 9:50 AM EDT Narrative Resulting Agency Comment Spec In Lab Charity De La Cruz MD CHEMISTRY ORDERABL ES [facility] [place] [address] * Hemogram (03/12/2019 9:45 AM EDT) [facility] White Blood Cell 5.7 4.0 - 9.5 x10(3)/[facility] Red Blood Cell 5.16 4.00 - 5.21 x10(6)/[facility] Hemoglobin 14.6 11.7 - 15.5 gm/dL [facility] Hematocrit 45.8 35.7 - 45.8 % [facility] Mean Cell Volume 88.8 82.6 - 94.4 fL [facility] Mean Cell Hemoglobin 28.3 27.1 - 32.0 pg [facility] Mean Cell Hemoglobin Concentration 31.9 31.7 - 35.0 gm/dL [facility] Platelet 228 145 - 357 x10(3)/[facility] LABORATORY RDW Standard Deviation 44.1 37.0 - 46.0 fL [facility] RDW coefficient of variation 13.6 11.5 - 14.1 % [facility] Mean Platelet Volume 11.1 7.6 - 12.9 fL [facility] NRBC% auto 0.0 % [facility] NRBC Absolute 0.000 0.000 - 0.000 x10(3)/[facility] Blood specimen (specimen) 03/12/2019 9:45 AM EDT 03/12/2019 9:50 AM EDT Narrative Resulting Agency Comment Spec In Lab Charity De La Cruz MD HEMATOLOGY ORDERAB LES [facility] [place] [address] documented in this encounter Visit Diagnoses Diagnosis Iron deficiency anemia, unspecified iron deficiency anemia type documented in this encounter Care Teams Box Truck Washer Relationship Specialty Start Date End Date Mariluz Watts MD [address] [place] [address] PCP - General 08/22/10 documented as of this encounter
--- OUTSIDE RECORDS SUMMARY | 2024-07-02 16:34 | XMS_ITS | Encounter Summary ---
Author Organization [facility] [place] [address] Care Team Providers Care Leaf Sorter Name Role Phone Mariluz Watts MD Primary Care Provider [phone] Reason for Visit * Reason Comments Skin Lesion Encounter Details Date Type Department Care Team (Late st Contact Info) Description 08/14/2018 11:30 AM EST Office Visit Dermatology at [facility] [address] [place] [address] Gardenia Cruz MD [facility] [address] [place] [address] Florina Lechuga PA [facility] [place] [address] Lentigines; Seborrheic keratoses; Seborrheic keratosis, inflamed; Blue [...] weeks. Please contact the Dermatology clinic at [phone] if the lesion has not fully resolved [...] Reviewed and signed by Florina Lechuga PA-C [facility] Patient seen in conjunction with staff chiropractor sole practitioner: Gardenia Cruz MD Section of Dermatology [facility] documented in this encounter Plan of Treatment Upcoming Encounters Date Type Department Care Team (Late st Contact Info) Description 08/05/2024 8:20 AM EST Office Visit Dermatology at [facility] [address] [place] [address] Charu Martin MD [facility] [address] [place] [address] 11/16/2024 1:00 PM EST Office [place] [address] Paula Harris PA [facility] [place] [address] 01/26/2025 9:50 AM EDT Appointment Mammography/[place] [address] Joan Deutsch [facility] [place] [address] 01/26/2025 10:30 AM EDT Office [place] [address] Joan Deutsch CLINIQUE COUNTER MANAGER [facility] [place] [address] documented as of this encounter Visit Diagnoses Diagnosis Lentigines Other dyschromia Seborrheic keratoses Other seborrheic keratosis Seborrheic keratosis, inflamed Inflamed seborrheic keratosis Blue nevus Sebaceous hyperplasias of face Other specified disease of sebaceous glands Rosacea documented in this encounter Care Teams Leaf Sorter Relationship Specialty Start Date End Date Mariluz Watts MD [address] [place] [address] PCP - General 11/23/10 documented as of this encounter
--- OUTSIDE RECORDS SUMMARY | 2024-07-02 16:34 | XMS_ITS | Encounter Summary ---
Author Organization [facility] [place] [address] Care Team Providers Care Healthcare Applications Analyst Name Role Phone Mariluz Watts MD Primary Care Provider [phone] Encounter Details Date Type Department Care Team (Late st Contact Info) Description 11/28/2018 Notes Only Hematology [place] [address] Charity De La Cruz MD [facility] [address] [place] [address] Social History Tobacco Use Types Packs/Day Years [...] not included. [facility] [place] [address] HEMATOLOGY FOLLOW UP Kimi has completed her planned course of IV iron infusions and an EGD was performed that showed a big hiatal hernia with Oli erosions, likely the source of blood loss and iron deficiency. Labs today show resolution of anemia and alevism of iron stores: Results for DIAMOND GAMING [...] 1. Continue oral iron supplementation for the continuous churn buttermaker to keep up with chronic GI loss. [...] as necessary. Charity De La Cruz MD System Trainer, [facility] documented in this encounter Plan of Treatment Upcoming Encounters Date Type Department Care Team (Late st Contact Info) Description 08/05/2024 8:20 AM EST Office Visit Dermatology at [facility] [address] [place] [address] Charu Martin MD [facility] [place] [address] 11/16/2024 1:00 PM EST Office Visit General Surgery at [place] [phone] Paula Harris PA [facility] [place] [address] 01/26/2025 9:50 AM EDT Appointment Mammography/[place] [address] Joan Deutsch [facility] [place] [address] 01/26/2025 10:30 AM EDT Office Visit General Surgery at [place] [phone] Joan Deutsch [facility] [place] [address] documented as of this encounter Visit Diagnoses Not on filedocumented in this encounter Care Teams Healthcare Applications Analyst Relationship Specialty Start Date End Date Mariluz Watts MD [address] [place] [address] PCP - General 08/22/10 documented as of this encounter
--- OUTSIDE RECORDS SUMMARY | 2024-07-02 16:34 | XMS_ITS | Encounter Summary ---
[place] [address] Care Team Providers Care Systems Programmer Analyst Name Role Phone Mariluz Watts MD Primary Care Provider [phone] Reason for Referral * Diagnostic Test (Routine) - Closed Specialty Diagnoses / Procedures Referred By John lyons Referred To Contact Radiology Diagnoses Primary osteoarthritis of right foot Procedures CT Foot wo Contrast Right (Generic) Daylin Waldrop PA [facility] DR [place] [address] [facility] [place] [address] Referral ID Status Reason Start Date Expiration Date V isits Requested Visits Authorized [id number] Closed Specialty Service Requested 03/10/2019 03/09/2020 1 1 Reason for Visit * Reason Comments Follow-up right foot pain - di scuss surgery Encounter Details Date Type Department Care Team (Latest Contact Info) Description 03/10/2019 3:30 PM EDT Office Visit [place] [address] Primary osteoarthritis of right foot Social History [...] NAME: Diamond Gaming AGE: 73 y.o. MR#: [id number] DATE OF VISIT: 03/10/2019 CHIEF COMPLAINT: FU [...] tear (TEARS) Drops ??? multivit with calcium,iron,min ([id number]-MINERALS ORAL) ??? omeprazole (PRILOSEC) 20 mg Capsule, [...] AM EST Office Visit Dermatology at [facility] [address] [place] [address] Charu Martin MD [facility] DR [place] [address] 11/16/2024 1:00 PM EST Office Visit [place] [address] Paula Harris PA [facility] [place] [address] 01/26/2025 9:50 AM EDT Appointment Mammography/[place] [address] Joan Deutsch APRN [facility] [place] [place], [place] [address] 01/26/2025 10:30 AM EDT Office Visit [place] [address] Joan Deutsch APRN [facility] [place] [address] documented as of this encounter Results * [...] foot documented in this encounter Care Teams Systems Programmer Analyst Relationship Specialty Start Date End Date Mariluz Watts MD [address] [place] [address] PCP - General 08/22/10 documented as of this encounter
--- OUTSIDE RECORDS SUMMARY | 2024-07-02 16:34 | XMS_ITS | Encounter Summary ---
[place] [address] Care Team Providers Care Online Media Buyer Name Role Phone Mariluz Watts MD Primary Care Provider [phone] Reason for Referral * Surgical (Routine) - Specialty Diagnoses / Procedures Referred By John lyons Referred To Contact Anesthesiology Diagnoses Primary osteoarthritis of left knee Shekhar Moody MD [facility] [place] [address] [place] [address] Referral ID Status Reason Start Date Expiration Date V isits Requested Visits Authorized [id number] Consult, Test & Treat 07/28/2018 07/28/2019 1 1 Reason for Visit * Reason Comments Foot Pain right Encounter Details Date Type Department Care Team (Latest Contact Info) Description 07/28/2018 9:00 AM EDT Office Visit [place] [address] Shekhar Moody MD [facility] [place] [address] Primary osteoarthritis of left knee (Primary Dx); [...] 8:20 AM EST Office Visit Dermatology at [facility] [address] [place] [address] Charu Martin MD [facility] [place] [address] 11/16/2024 1:00 PM EST Office Visit General Surgery at [place] [phone] Paula Harris PA [facility] [place] [address] 01/26/2025 9:50 AM EDT Appointment Mammography/[place] [address] Joan Deutsch, [facility] [place] [address] 01/26/2025 10:30 AM EDT Office Visit [place] [address] Joan Deutsch, [facility] [place] [address] Scheduled Referrals Name Type Priority Associated Diagnoses Orde r Schedule Referral to General Anesthesiology Outpatient Referral Routine Primary osteoarthritis of left knee Ordered: 07/28/2018 documented as of this encounter Results * APTT (09/18/2018 12:41 PM EST) Partial Thromboplastin Time 35 25 - 37 sec [facility] Comment: The PTT is NOT appropriate for heparin monitoring. Use the Anti-Xa level for heparin monitoring (HEP UFH) or LMWH monitoring (HEP LMW). A PTT less than 37 seconds generally indicates adequate hemostasis. Blood specimen (specimen) 09/18/2018 12:41 PM EST 09/18/2018 1:12 PM EST Narrative Resulting Agency Comment Spec In Lab Shekhar Moody MD HEMATOLOGY ORDERABLE S [facility] [place] [address] * Prothrombin Time (09/18/2018 12:41 PM EST) Prothrombin Time 11.5 9.4 - 12.5 sec [facility] International Normalization Ratio 1.0 [facility] Comment: An INR <2.0 [...] Lab Shekhar Moody MD HEMATOLOGY ORDERABLE S [facility] [place] [address] * (ABNORMAL) Basic Metabolic Panel (non-fasting) (09/18/2018 12:41 PM EST) Pathologist [facility] Glucose 94 65 - 199 mg/dL [facility] Comment:Diabetes: >=200 mg/d L plus symptoms Blood Urea Nitrogen 14 8 - 18 mg/dL [facility] Creatinine 0.64(L) 0.70 - 1.20 mg/dL [facility] Sodium 143 135 - 145 mmol/L [facility] Potassium 3.5 3.5 - 5.0 mmol/L [facility] Comment: Please note: ??Patients with WBC >100,000 may have falsely elevated Potassium levels. ??For accurate Potassium quantification in these patients send serum separator tube (gold top) for subsequent determinations. ??Contact the Clinical Chemistry Laboratory if there are any questions. Chloride 106 98 - 107 mmol/L [facility] Carbon Dioxide 25 22 - 31 mmol/L [facility] Anion Gap 12 5 - 15 mmol/L [facility] Calcium 9.5 8.5 - 10.5 mg/dL [facility] Est Glomerular Filtration Rate 90 >=60 mL/min/1. 73 m?? [facility] Comment: The eGFR was calculated using the CKD-EPI equation. As with all creatinine based estimates of kidney function, eGFR values calculated with the CKD-EPI equation are not accurate in patients with acute kidney failure, extremes of body mass or the acutely ill. http://Comprehensive Care/[facility] eGFR 105 >=60 mL/min/1. 73 m?? [facility] Comment: The eGFR was calculated using the CKD-EPI equation. As with all creatinine based estimates of kidney function, eGFR values calculated with the CKD-EPI equation are not accurate in patients with acute kidney failure, extremes of body mass or the acutely ill. http://Comprehensive Care/[facility] Blood specimen (specimen) 09/18/2018 12:41 PM EST 09/18/2018 1:12 PM EST Narrative Resulting Agency Comment Spec In Lab Shekhar Moody MD CHEMISTRY ORDERABLES [facility] [place] [address] * EKG 12 Lead (09/18/2018 11:55 AM EST) Ventricular rate 74 BPM MUSE SYSTEM Atrial Rate 74 BPM MUSE SYSTEM P-R Interval 202 ms MUSE SYSTEM QRS Duration 84 ms MUSE SYSTEM Q-T Interval 372 ms MUSE SYSTEM QTC Calculated (Bezet) 412 ms MUSE SYSTEM Calculated P [place] 57 degrees MUSE SYSTEM Calculated R [place] -31 degrees MUSE SYSTEM Calculated T [place] 52 degrees MUSE SYSTEM INTERPRETATION Sinus rhythm with Premature supraventricular complexes Left axis deviation Abnormal ECG When compared with ECG of 08-JUL-2012 13:37, Premature supraventricular complexes are now Present Confirmed by MD Sree, Shivam ([id number]) on 09/18/2018 4:27:15 PM MUSE SYSTEM 09/18/2018 11:5 5 AM EST 09/18/2018 4:27 PM EST Shekhar Moody MD ECG ORDERABLES [employer] SYSTEM documented in this encounter Visit Diagnoses Diagnosis Primary osteoarthritis of left knee- Primary Primary localized osteoarthrosis, lower leg Osteoarthritis of right midfoot Pain in extremity, unspecified extremity documented in this encounter Care Teams Online Media Buyer Relationship Specialty Start Date End Date Mariluz Watts MD [address] [facility] [place] [address] PCP - General 08/22/10 documented as of this encounter
--- OUTSIDE RECORDS SUMMARY | 2024-07-02 16:34 | XMS_ITS | Encounter Summary ---
[place] [address] Care Team Providers Care Trimmer And Borer Machine Operator Name Role Phone Mariluz Watts MD Primary Care Provider [phone] Reason for Visit * Reason Comments Anemia Encounter Details Date Type Department Care Team (Latest Contact Info) Description 10/31/2018 9:00 AM EST - 10/31/2018 11:59 PM EST Hospital Encounter Hematology [place] [address] Iron deficiency anemia, unspecified iron deficiency anemia [...] EST Office Visit Dermatology at [facility] [address] [place] [address] Charu Martin MD [facility] [place] [address] 11/16/2024 1:00 PM EST Office [place] [address] Paula Harris PA [facility] [place] [address] 01/26/2025 9:50 AM EDT Appointment Mammography/[place] [address] Joan Deutsch APRN [facility] [place] [address] 01/26/2025 10:30 AM EDT Office [place] [address] Joan Deutsch APRN [facility] [place] [address] documented as of this encounter Visit Diagnoses [...] mg documented in this encounter Care Teams Trimmer And Borer Machine Operator Relationship Specialty Start Date End Date Mariluz Watts MD [address] [place] [address] PCP - General 08/22/10 documented as of this encounter
--- OUTSIDE RECORDS SUMMARY | 2024-07-02 16:34 | XMS_ITS | Encounter Summary ---
[place] [address] Care Team Providers Care Mail Inserter Name Role Phone Mariluz Watts MD Primary Care Provider [phone] Reason for Visit * Reason Onset Date Comments Labs Only 12/02/2018 labs only Encounter Details Date Type Department Care Team (Late st Contact Info) Description 12/02/2018 Telephone Hematology [place] [address] Marlys Kolb RN Labs Only (labs only) [...] having difficulty accessing the results in her [facility] account. Pt's callback: [phone], confidential voicemail (ok to leave message with numbers for lab results) T/C to Patient: Left message on VM with labs Plan: Left message with instruction to call back with any questions documented in this encounter Plan of Treatment Upcoming Encounters Date Type Department Care Team (Late st Contact Info) Description 08/05/2024 8:20 AM EST Office Visit Dermatology at [address] [address] Charu Martin MD [facility] [place] [address] 11/16/2024 1:00 PM EST Office Visit [place] [address] Paula Harris PA [facility] [place] [address] 01/26/2025 9:50 AM EDT Appointment Mammography/[place] [address] Joan Deutsch APRN [facility] [place] [address] 01/26/2025 10:30 AM EDT Office Visit General [place] [address] Joan Deutsch APRN [facility] [place] [address] documented as of this encounter Visit Diagnoses Not on filedocumented in this encounter Care Teams Mail Inserter Relationship Specialty Start Date End Date Mariluz Watts MD [address] [place] [address] 1 [place] [address] PCP - General 08/22/10 documented as of this encounter
--- OUTSIDE RECORDS SUMMARY | 2024-07-02 16:34 | XMS_ITS | Encounter Summary ---
[place] [address] Care Team Providers Care Solar Sales Name Role Phone Mariluz Watts MD Primary Care Provider [phone] Reason for Visit * Reason Comments IV Medication Encounter Details Date Type Department Care Team (Latest Contact Info) Description 10/24/2018 6:58 AM EST - 10/24/2018 11:59 PM EST Hospital Encounter Hematology [place] [address] Iron deficiency anemia, unspecified iron deficiency anemia [...] at [facility] [address] [place] [address] Charu Martin MD [facility] [place] [address] 11/16/2024 1:00 PM EST Office [place] [address] Paula Harris PA [facility] [place] [place] [address] 01/26/2025 9:50 AM EDT Appointment Mammography/[place] [address] Joan Deutsch APRN [facility] [place] [address] 01/26/2025 10:30 AM EDT Office [place] [address] Joan Deutsch APRN [facility] [place] [address] documented as of this encounter Visit Diagnoses [...] mg documented in this encounter Care Teams Solar Sales Relationship Specialty Start Date End Date Mariluz Watts MD [address] [place] [address] [address] [facility] 1 [place] [address] PCP - General 08/22/10 documented as of this encounter
--- OUTSIDE RECORDS SUMMARY | 2024-07-02 16:34 | XMS_ITS | Encounter Summary ---
Author Organization [facility] [place] [address] Care Team Providers Care Groutman Name Role Phone Mariluz Watts MD Primary Care Provider Reason for Referral * Consultation (Urgent) - Closed Specialty Diagnoses / Procedures Referred By John lyons Referred To Contact Hematology and Oncology Diagnoses Primary osteoarthritis of left knee Hypochromic microcytic anemia Bleeding diathesis IRON DEFICIENCY ANEMIA Home Olivas MD [facility] [place] [address] [facility] Hem Onc [address] [place] [address] Referral ID Status Reason Start Date Expiration Date V isits Requested Visits Authorized [id number] Closed Consult, Test & Treat Connection Center 09/19/2018 09/19/2019 1 1 Reason for Visit * Reason Comments Pre-op Exam L TKA DOS 10/13/18 Encounter Details Date Type Department Care Team (Latest Contact Info) Description 09/18/2018 10:40 AM EST Office [place] [address] Home Olivas MD [facility] ORTHOPAEDIC [place] [address] Preop examination; Primary osteoarthritis of left knee; [...] and more (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 [...] 8:20 AM EST Office Visit Dermatology at [facility] [address] [place] [address] Charu Martin MD [facility] DR [place]G [place] [address] 11/16/2024 1:00 PM EST Office [place] [address] Paula Harris PA [facility] [place] [address] 01/26/2025 9:50 AM EDT Appointment Mammography/[place] [address] Joan Deutsch, GE [facility] [place] [address] 01/26/2025 10:30 AM EDT Office [place] [address] Joan Deutsch, [facility] [place] [address] Scheduled Referrals Name Type Priority Associated Diagnoses [...] conditions documented in this encounter Care Teams Groutman Relationship Specialty Start Date End Date Mariluz Watts MD [address] [place] [address] [address] [facility] 1 [place] [address] PCP - General 08/22/10 documented as of this encounter
--- OUTSIDE RECORDS SUMMARY | 2024-07-02 16:34 | XMS_ITS | Encounter Summary ---
Author Organization [facility] [place] [address] Care Team Providers Care Automotive Airconditioning Mechanic Name Role Phone Mariluz Watts MD Primary Care Provider Encounter Details Date Type Department Care Team (Latest Contact Info) Description 07/03/2018 9:46 AM EDT - 07/03/2018 11:59 PM EDT Hospital Encounter XRay at [address] [place] [address] Shekhar Moody MD [facility] [place] [address] Right foot pain Discharge Disposition: Home Social [...] 8:20 AM EST Office Visit Dermatology at [address] [address] Charu Martin MD [facility] [place] [address] 11/16/2024 1:00 PM EST Office [place] [address] Paula Harris PA [facility] [place] [address] 01/26/2025 9:50 AM EDT Appointment Mammography/[place] [address] Joan Deutsch APRN [facility] [place] [address] 01/26/2025 10:30 AM EDT Office Visit [place] [address] Joan Deutsch APRN [facility] [place] [address] documented as of this encounter Procedures Procedure [...] limb documented in this encounter Care Teams Automotive Airconditioning Mechanic Relationship Specialty Start Date End Date Mariluz Watts MD [address] [place] [address] PCP - General 08/22/10 documented as of this encounter
--- OUTSIDE RECORDS SUMMARY | 2024-07-02 16:35 | XMS_ITS | Encounter Summary ---
Author Organization [facility] [place] [address] Care Team Providers Care Pre Press Manager Name Role Phone Mariluz Watts MD Primary Care Provider Reason for Visit * Reason Comments Sinusitis Sinus issues Laryngitis Encounter Details Date Type Department Care Team (Late st Contact Info) Description 04/24/2016 1:00 PM EDT Office [place] [address] Cleo Kruger APRN [facility] [place] [address] Chronic rhinitis; Gastric reflux Social History Tobacco [...] this encounter Progress Notes * Cleo Kruger, SURTASS ANALYST - 04/24/2016 1:00 PM EDT Otolaryngology Outpatient Consultation Note Date of Visit: 04/24/2016 Location of Visit: Otolaryngology Clinic, [facility] Patient: Diamond Gaming ([id number] ; 1945 Primary Care Provider: MARILUZ WATTS [...] and bleeding doesn't help. She is using Booker pot in the past and that hasn't [...] to rough spots on thighs. 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 cigar packer and picker both scripts 02/02/14 400 g 10 [...] Trazodone Social History: Diamond Gaming lives in [place] [address]*,. Family History: Family History Problem Relation Age [...] issues and rtc as needed. Cleo CH[place], [place] [address] Office documented in this encounter Plan of Treatment Upcoming Encounters Date Type Department Care Team (Late st Contact Info) Description 08/05/2024 8:20 AM EST Office Visit Dermatology at [facility] [address] [place] [address] Charu Martin MD [facility] DR [place] [address] 11/16/2024 1:00 PM EST Office [place] [address] Paula Harris, [facility] [place] [place] [address] 01/26/2025 9:50 AM EDT Appointment Mammography/DXA at [place] [address] Joan Deutsch, [facility] [place] [address] 01/26/2025 10:30 AM EDT Office Visit General Surgery at [place] [address] Joan Deutsch, [facility] [place] [address] documented as of this encounter Visit Diagnoses Diagnosis Chronic rhinitis Gastric reflux Esophageal reflux documented in this encounter Care Teams Pre Press Manager Relationship Specialty Start Date End Date Mariluz Watts MD [address] [place] [address] PCP - General 08/22/10 documented as of this encounter
--- OUTSIDE RECORDS SUMMARY | 2024-07-02 16:35 | XMS_ITS | Encounter Summary ---
Author Organization [facility] [place] [address] Care Team Providers Care Endo Tech Name Role Phone Mariluz Watts MD Primary Care Provider [phone] Encounter Details Date Type Department Care Team (Late st Contact Info) Description 07/27/2015 9:07 AM EDT - 07/27/2015 11:05 AM EDT Surgery [place] [address] Kami Bowman MD [facility] [place] [address] CYSTO, REMOVAL OF STENT, FOREIGN BODY OR [...] pain medications The number for questions is [phone] before 5 PM weekdays and [phone] after 5 PM and weekends. Activity level: [...] weeks with a renal ultrasoundprior. Please call [phone] if you do not receive your appointment. [...] Refills Start Date End Date LACTOBAC CMB #[id number] ORAL Take 1 tablet by mouth daily. [...] Bowman MD - 07/27/2015 9:27 AM EDT [facility] Operative Note Patient Name: Diamond Gaming : [id number] MR#: [id number] Case Date: 07/27/2015 Surgeon: Surgeon(s) and Role: [...] Operative Note Patient Name: Diamond Gaming : [id number] MR#: [id number] Case Date: 07/27/2015 Surgeon: Surgeon(s) and Role: [...] 8:20 AM EST Office Visit Dermatology at [address] [address] Charu Martin MD [facility] DR CONG [place] [address] 11/16/2024 1:00 PM EST Office [place] [address] Paula Harris PA [facility] [place] [address] 01/26/2025 9:50 AM EDT Appointment Mammography/[place] [address] Joan Deutsch APRN [facility] [place] [address] 01/26/2025 10:30 AM EDT Office Visit [place] [address] Joan Deutsch APRN [facility] [place] [address] Pending Results Name Type Priority Associated Diagnoses Date /Time FILM LIBRARY-FLUORO OR [id number] ONL Imaging Routine 07/27/2015 10: 20 AM EDT Scheduled Orders Name Type Priority Associated Diagnoses Orde r Schedule FILM LIBRARY-FLUORO OR [id number] ONL Imaging Routine Once PRN (f or [...] 11:02 am) Patient Info ID #: ? [id number] ?: ??[birth year] (69 yrs) Name: ? DIAMOND GAMING ? Visit Date: 09/14/2015 10:43 am Performed By Performed By: ? Abel [facility], ??Christine Attending: ?Nitesh STEINER, Bella Associate: ?Ramon STEINER, [facility] Referred By: ?KAMI BOWMAN MD Service(s) Provided ??URETRO - Retroperitoneal Complete - [id number] ? [id number] Indications ??s/p left ureteroscopy/stent, r/o residual hydro [...] 09/14/2015 11:02 am) Patient Info ID #: [id number] : [birth year] (69 yrs) Name: DIAMOND GAMING Visit Date: 09/14/2015 10:43 am Performed By Performed By: Christine Roman RDMS Attending: Bella Dowling MD Associate: Ramon STEINER Deuce Referred By: KAMI BOWMAN MD Service(s) Provided URETRO - Retroperitoneal Complete - [id number] Indications s/p left ureteroscopy/stent, r/o residual hydro [...] Recovery documented in this encounter Care Teams Endo Tech Relationship Specialty Start Date End Date Mariluz Watts MD [address] [place] [address] PCP - General 08/22/10 documented as of this encounter
--- OUTSIDE RECORDS SUMMARY | 2024-07-02 16:35 | XMS_ITS | Encounter Summary ---
Author Organization [facility] [place] [address] Care Team Providers Care Auction Assistant Name Role Phone Mariluz Watts MD Primary Care Provider [phone] Reason for Visit * Reason Comments Bilateral Foot Pain Rt > Lt * Consultation (Routine) - Closed Specialty Diagnoses / Procedures Referred By John lyons Referred To Contact Orthopaedics Diagnoses Right foot pain Scar Aviles II, [facility] [address] [facility] Orthopaedics [address] [place] [address] Referral ID Status Reason Start Date Expiration Date V isits Requested Visits Authorized [id number] Closed Consult, Test & Treat 05/16/2016 05/16/2017 1 1 Encounter Details Date Type Department Care Team (Late st Contact Info) Description 05/23/2016 11:00 AM EDT Office [place] [address] Cornell Marinelli, [facility] [place] [address] Right foot pain; Osteoarthritis of [...] (CELEXA) 20 mg Tablet ??? LACTOBAC CMB #[id number] ORAL ??? Lysine 500 mg Tablet ??? [...] 8:20 AM EST Office Visit Dermatology at [facility] [address] [place] [address] Charu Martin MD [facility] [place] [address] 11/16/2024 1:00 PM EST Office [place] [address] Paula Harris PA [facility] [place] [address] 01/26/2025 9:50 AM EDT Appointment Mammography/[place] [address] Joan Deutsch APRN [facility] [place] [address] 01/26/2025 10:30 AM EDT Office [place] [address] Joan Deutsch APRN [facility] [place] [address] documented as of this encounter Results * [...] limb documented in this encounter Care Teams Auction Assistant Relationship Specialty Start Date End Date Mariluz Watts MD [address] [facility] 1 [place] [address] PCP - General 08/22/10 documented as of this encounter
--- OUTSIDE RECORDS SUMMARY | 2024-07-02 16:35 | XMS_ITS | Encounter Summary ---
[place] [address] Care Team Providers Care Vibrator Operator Name Role Phone Mariluz Watts MD Primary Care Provider [phone] Reason for Visit * Reason Comments Follow-up Encounter Details Date Type Department Care Team (Late st Contact Info) Description 02/09/2016 2:00 PM EDT Office Visit Hematology [place] [address] [facility] HEMATOLOGY/[place] [address] Breast cancer, stage 2, right; Osteopenia Social [...] we can't coordinate with [place], ask my real estate legal secretary to have me call you. Please call my office at [phone] in the interim if you have any [...] over her breast exam. Abrahan Merlos MD traffic control specialist in Hematology-Oncology documented in this encounter Plan of Treatment Upcoming Encounters Date Type Department Care Team (Late st Contact Info) Description 08/05/2024 8:20 AM EST Office Visit Dermatology at [facility] [address] [place] [address] [facility] DR CONG [place] [address] 11/16/2024 1:00 PM EST Office Visit [place] [address] [facility] [place] [address] 01/26/2025 9:50 AM EDT Appointment Mammography/[place] [address] [facility] [place] [address] 01/26/2025 10:30 AM EDT Office Visit [place] [address] Joan Deutsch RUBBER ENGRAVER [facility] [place] [address] documented as of this encounter Results * [...] BMD measurements and plots are available in [employer] under the imaging tab. Paper copies will be sent to providers without E- access. If you have received this report without the data sheet and do not have access to [email or web address], please contact Radiology Senior Clinician at [phone] Saturday thru Saturday 8am-4pm. Narrative 12/11/2016 2:52 [...] BMD measurements and plots are available in [email or web address] the imaging tab. Paper copies will be sent to providers without imo[employer] access.If you have received this report without the data sheet and do not haveaccess to [employer], please contact Radiology Senior Clinician at [phone] Saturday thruFriday 8am-4pm. Abrahan Merlos MD IMG DEXA ORDERABLES documented in this encounter Visit Diagnoses Diagnosis Breast cancer, stage 2, right Osteopenia Disorder of bone and cartilage, unspecified Osteopenia Disorder of bone and cartilage, unspecified documented in this encounter Care Teams Vibrator Operator Relationship Specialty Start Date End Date Mariluz Watts MD [address] [place] [address] PCP - General 08/22/10 documented as of this encounter
--- OUTSIDE RECORDS SUMMARY | 2024-07-02 16:35 | XMS_ITS | Encounter Summary ---
[place] [address] Care Team Providers Care Data Processing Auditor Name Role Phone Mariluz Watts MD Primary Care Provider [phone] Reason for Visit * Reason Comments Follow Up Surgery Encounter Details Date Type Department Care Team (Late st Contact Info) Description 12/11/2016 9:15 AM EDT Office Visit [place] [address] Bella Ly APRN [facility] [place] [address] History of breast cancer Social History Tobacco [...] carcinoma with lobular features Tumor Grade: Intermediate Zqybky-Wnmzd-Fuvosgizwm Score: 7 Tubular Differentiation: 3 Mitotic Rate: [...] sentinel nodes: 2 (Specimen A - Right [place] node) No. positive for carcinoma: 1 (H&E) [...] AM EST Office Visit [address]ology at [address] [address] Charu Martin MD [facility] DR C[place] [address] 11/16/2024 1:00 PM EST Office Visit [place] [address] Paula Harris PA [facility] [place] [address] 01/26/2025 9:50 AM EDT Appointment Mammography/[place] [address] Joan Deutsch APRN [facility] [place] [address] 01/26/2025 10:30 AM EDT Office Visit General Surgery at [facility] [place] [address] Joan Deutsch APRN [facility] [place] [address] documented as of this encounter Results * [...] BIRADS CATEGORY 2: BENIGN FINDINGS * ??The [employer] and The Society of [...] breast documented in this encounter Care Teams Data Processing Auditor Relationship Specialty Start Date End Date Mariluz Watts MD [address] [place] [address] PCP - General 08/22/10 documented as of this encounter
--- OUTSIDE RECORDS SUMMARY | 2024-07-02 16:35 | XMS_ITS | Encounter Summary ---
Author Organization [facility] [place] [address] Care Team Providers Care Inspector Purchased Parts Name Role Phone Mariluz Watts MD Primary Care Provider [phone] Encounter Details Date Type Department Care Team (Latest Contact Info) Description 09/14/2015 10:12 AM EST - 09/14/2015 11:59 PM [facility] Hospital [place] [address] Kami Bowman MD [facility] [place] [address] Nephrolithiasis Discharge Disposition: Home Social History Tobacco [...] Refills Start Date End Date LACTOBAC CMB #3-[id number] ORAL Take 1 tablet by mouth daily. [...] to rough spots on thighs. 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 potato picker both scripts 02/02/14 400 g 10 [...] [facility] [address] [place] [address] Charu Martin MD [facility] DR [place] [address] 11/16/2024 1:00 PM EST Office Visit General Surgery at [facility] [place] [address] Paula Harris PA [facility] [place] [address] 01/26/2025 9:50 AM EDT Appointment Mammography/[place] [address] Joan Deutsch HEALTH CAREERS INSTRUCTOR [facility] [place] [address] 01/26/2025 10:30 AM EDT Office [place] [address] Joan Deutsch HEALTH CAREERS INSTRUCTOR [facility] [place] [address] documented as of this encounter Procedures Procedure [...] 11:02 am) Patient Info ID #: ? [id number] ?: ??[birth year] (69 yrs) Name: ? DIAMOND GAMING ? Visit Date: 09/14/2015 10:43 am Performed By Performed By: ? Abel JOSE, ??Christine Attending: ?Nitesh STEINER, Bella Associate: ?Ramon STEINER, [facility] Referred By: ?KAMI BOWMAN MD Service(s) Provided ??URETRO - Retroperitoneal Complete - [id number] ? [id number] Indications ??s/p left ureteroscopy/stent, r/o residual hydro [...] 09/14/2015 11:02 am) Patient Info ID #: [id number] : [birth year] (69 yrs) Name: DIAMOND GAMING Visit Date: 09/14/2015 10:43 am Performed By Performed By: Christine Roman RDMS Attending: Bella Dowling MD Associate: Ramon STEINER Deuce Referred By: KAMI BOWMAN MD Service(s) Provided URETRO - Retroperitoneal Complete - [id number] Indications s/p left ureteroscopy/stent, r/o residual hydro [...] kidney documented in this encounter Care Teams Inspector Purchased Parts Relationship Specialty Start Date End Date Mariluz Watts MD [address] [place] [address] PCP - General 08/22/10 documented as of this encounter
--- OUTSIDE RECORDS SUMMARY | 2024-07-02 16:35 | XMS_ITS | Encounter Summary ---
[place] [address] Care Team Providers Care Pharmacy Technician Instructor Name Role Phone Mariluz Watts MD Primary Care Provider [phone] Encounter Details Date Type Department Care Team (Late st Contact Info) Description 07/17/2015 [place] [address] [facility] [place] [address] Social History Tobacco Use Types Packs/Day Years [...] EST Office Visit Dermatology at [facility] [address] [place] [address] [facility] [place] [address] 11/16/2024 1:00 PM EST Office Visit General Surgery at [place] [phone] [facility] [place] [address] 01/26/2025 9:50 AM EDT Appointment Mammography/DXA at [place] [phone] [facility] [place] [address] 01/26/2025 10:30 AM EDT Office [place] [address] [facility] [place] [address] documented as of this encounter Visit Diagnoses Not on filedocumented in this encounter Care Teams Pharmacy Technician Instructor Relationship Specialty Start Date End Date Mariluz Watts MD [address] [place], [place] [address] [address] [place] [address] PCP - General 08/22/10 documented as of this encounter
--- OUTSIDE RECORDS SUMMARY | 2024-07-02 16:35 | XMS_ITS | Encounter Summary ---
Author Organization [facility] [place] [address] Care Team Providers Care Wheel Inspector Name Role Phone Mariluz Watts MD Primary Care Provider [phone] Reason for Visit * Reason Comments Follow-up Encounter Details Date Type Department Care Team (Late st Contact Info) Description 12/12/2017 2:00 PM EDT Office Visit Hematology [place] [address] Abrahan Merlos MD [facility] HEMATOLOGY/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 She takes 3000 units of Vitamin [...] Dexa scan in 2019. Abrahan Merlos MD auditor supervisor in Hematology-Oncology documented in this encounter Plan of Treatment Upcoming Encounters Date Type Department Care Team (Late st Contact Info) Description 08/05/2024 8:20 AM EST Office Visit Dermatology at [place] [address] [place] [address] Charu Martin MD [facility] [place] [address] 11/16/2024 1:00 PM EST Office Visit [place] [address] Paula Harris PA [facility] [place] [address] 01/26/2025 9:50 AM EDT Appointment Mammography/[place] [address] Joan Deutsch APRN [facility] [place] [place] [address] 01/26/2025 10:30 AM EDT Office Visit [place] [address] Joan Deutsch, GE [facility] [place] [place] [address] documented as of this encounter Visit Diagnoses Diagnosis Malignant neoplasm of right breast, stage 2 documented in this encounter Care Teams Wheel Inspector Relationship Specialty Start Date End Date Mariluz Watts MD [address] [place] [address] PCP - General 08/22/10 documented as of this encounter
--- OUTSIDE RECORDS SUMMARY | 2024-07-02 16:35 | XMS_ITS | Encounter Summary ---
[place] [address] Care Team Providers Care Deputy Grand Jury Name Role Phone Mariluz Watts MD Primary Care Provider [phone] Reason for Visit * Reason Comments Follow Up Surgery Encounter Details Date Type Department Care Team (Late st Contact Info) Description 12/19/2015 11:45 AM EDT Office [place] [address] Bella Ly APRN [facility] [place] [address] History of breast cancer Social History Tobacco [...] carcinoma with lobular features Tumor Grade: Intermediate Hhwodq-Cialz-Cicvseqiao Score: 7 Tubular Differentiation: 3 Mitotic Rate: [...] 8:20 AM EST Office Visit Dermatology at [place] [address] [place] [address] Charu Martin MD [facility] DR [place] [address] 11/16/2024 1:00 PM EST Office [place] [address] Paula Harris PA [facility] [place] [address] 01/26/2025 9:50 AM EDT Appointment Mammography/[place] [address] Joan Deutsch APRN [facility] [place] [address] 01/26/2025 10:30 AM EDT Office [place] [address] Joan Deutsch, GE [facility] [place] [address] documented as of this encounter Results * [...] BIRADS CATEGORY 2: BENIGN FINDINGS * ??The [place] [employer] and The Society of [...] breast documented in this encounter Care Teams Deputy Grand Jury Relationship Specialty Start Date End Date Mariluz Watts MD [address] [place] [address] PCP - General 08/22/10 documented as of this encounter
--- OUTSIDE RECORDS SUMMARY | 2024-07-02 16:35 | XMS_ITS | Encounter Summary ---
Author Organization [facility] [place] [address] Care Team Providers Care Solicitor Patent Name Role Phone Mariluz Watts MD Primary Care Provider [phone] Encounter Details Date Type Department Care Team (Latest Contact Info) Description 12/19/2015 10:28 AM EDT - 12/19/2015 11:59 PM EDT Hospital En[place] [address] Gardenia Marquez MD [facility] [place] [address] Encounter for screening mammogram for breast cancer [...] Refills Start Date End Date LACTOBAC CMB #[id number] ORAL Take 1 tablet by mouth daily. [...] to rough spots on thighs. 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 cherry picker operator both scripts 02/02/14 400 g [...] 8:20 AM EST Office Visit Dermatology at [facility] [address] [place] [address] Charu Martin MD [facility] [place] [address] 11/16/2024 1:00 PM EST Office Visit General Surgery at [facility] [place] [address] Paula Harris, PA [facility] [place] [address] 01/26/2025 9:50 AM EDT Appointment Mammography/[place] [address] Joan Deutsch, [facility] [place] [address] 01/26/2025 10:30 AM EDT Office [place] [address] Joan Deutsch, [facility] [place] [address] documented as of this encounter Procedures Procedure [...] mammographic evidence of malignancy. RECOMMENDATION: * ??The [place] [employer] and The Society of [...] cancer documented in this encounter Care Teams Solicitor Patent Relationship Specialty Start Date End Date Mariluz Watts MD [address] [place] [address] PCP - General 08/22/10 documented as of this encounter
--- OUTSIDE RECORDS SUMMARY | 2024-07-02 16:35 | XMS_ITS | Encounter Summary ---
Author Organization [facility] [place] [address] Care Team Providers Care Chalk Extruding Machine Operator Name Role Phone Mariluz Watts MD Primary Care Provider [phone] Reason for Visit * Reason Comments Advice Only left hand Dupuytrens Encounter Details Date Type Department Care Team (Latest Contact Info) Description 05/01/2018 11:15 AM EDT Office Visit [place] [address] Ken Mosqueda MD [facility] [place] [address] Other secondary osteoarthritis of first carpometacarpal joint [...] 8:20 AM EST Office Visit Dermatology at [place] [address] [place] [address] Charu Martin MD [facility] DR [place] [address] 11/16/2024 1:00 PM EST Office Visit [place] [address] Paula Harris PA [facility] [place] [address] 01/26/2025 9:50 AM EDT Appointment Mammography/[place] [address] Joan Deutsch APRN [facility] [place] [address] 01/26/2025 10:30 AM EDT Office Visit [place] [address] Joan Deutsch APRN [facility] [place] [address] documented as of this encounter Visit Diagnoses Diagnosis Other secondary osteoarthritis of first carpometacarpal joint of left hand documented in this encounter Care Teams Chalk Extruding Machine Operator Relationship Specialty Start Date End Date Mariluz Watts MD [address] [place] [address] PCP - General 08/22/10 documented as of this encounter
--- OUTSIDE RECORDS SUMMARY | 2024-07-02 16:35 | XMS_ITS | Encounter Summary ---
Author Organization [facility] [place] [address] Care Team Providers Care Cartridge Maker Name Role Phone Mariluz Watts MD Primary Care Provider [phone] Reason for Visit * Reason Comments Aftercare Of Tjr bilateral ARSLAN Bilateral Knee Pain Bilateral Foot Pain right foot pain > le ft foot pain Encounter Details Date Type Department Care Team (Latest Contact Info) Description 07/03/2018 11:00 AM EDT Office [place] [address] Cornell Marinelli PA [facility] [place] [address] Hallux valgus of right foot; Osteoarthritis of [...] and the navicular cuneiform joints. Questionnaire Responses: [facility] Surgical Postop Visit 07/03/2018 PROMIS-10 General Health [...] Choose Same Treatment Again Probably no Orthopeadics [facility] Response 07/03/2018 HOOS JR Scores 73.47 Spine [facility] Response 07/03/2018 HOOS JR Scores 73.47 ASSESSMENT/PLAN: [...] arthritis ladder, attempting conservative therapy first with jkas-ydv-exzprfw anti-inflammatories such as ibuprofen or naproxen along [...] 8:20 AM EST Office Visit Dermatology at [place] [address] [place] [address] Charu Martin MD [facility] [place] [address] 11/16/2024 1:00 PM EST Office [place] [address] Paula Harris PA [facility] [place] [address] 01/26/2025 9:50 AM EDT Appointment Mammography/[place] [address] Joan Deutsch APRN [facility] [place] [address] 01/26/2025 10:30 AM EDT Office [place] [address] Joan Deutsch APRN [facility] [place] [address] documented as of this encounter Visit Diagnoses Diagnosis Hallux valgus of right foot Osteoarthritis of right midfoot Primary osteoarthritis of left knee Primary localized osteoarthrosis, lower leg Status post total replacement of left hip Status post right hip replacement Hip joint replacement by other means documented in this encounter Care Teams Cartridge Maker Relationship Specialty Start Date End Date Mariluz Watts MD [address] [place] [address] PCP - General 08/22/10 documented as of this encounter
--- OUTSIDE RECORDS SUMMARY | 2024-07-02 16:35 | XMS_ITS | Encounter Summary ---
Author Organization [facility] [place] [address] Care Team Providers Care Queen Producer Name Role Phone Mariluz Watts MD Primary Care Provider [phone] Encounter Details Date Type Department Care Team (Latest Contact Info) Description 07/27/2015 - 07/27/2015 7:21 AM EDT Hospital Encounter Radiology Library at [facility] [place] [address] Rosales Bowman MD [facility] [place] [address] Discharge Disposition: Home Social History Tobacco Use [...] Refills Start Date End Date LACTOBAC CMB #3-[id number] ORAL Take 1 tablet by mouth daily. [...] to rough spots on thighs. 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 fern picker both scripts 02/02/14 400 g 10 [...] 8:20 AM EST Office Visit Dermatology at [facility] [address] [place] [address] Charu Martin MD [facility] [place] [address] 11/16/2024 1:00 PM EST Office Visit General Surgery at [place] [address] Paula Harris PA [facility] [place] [address] 01/26/2025 9:50 AM EDT Appointment Mammography/[place] [address] Joan Deutsch SEAFOOD TECHNOLOGY SPECIALIST [facility] [place] [address] 01/26/2025 10:30 AM EDT Office Visit [place] [address] Joan Deutsch SEAFOOD TECHNOLOGY SPECIALIST [facility] [place] [address] Pending Results Name Type Priority Associated Diagnoses Date /Time FILM LIBRARY-FLUORO OR [id number] ONL Imaging Routine 07/27/2015 10: 20 AM EDT documented as of this encounter Visit Diagnoses Not on filedocumented in this encounter Care Teams Queen Producer Relationship Specialty Start Date End Date Mariluz Watts MD [address] [place] [address] [address] [place] [address] PCP - General 08/22/10 documented as of this encounter
--- OUTSIDE RECORDS SUMMARY | 2024-07-02 16:35 | XMS_ITS | Encounter Summary ---
Author Organization [facility] [place] [address] Care Team Providers Care Sales Agent Trading Stamps Name Role Phone Mariluz Watts MD Primary Care Provider [phone] Encounter Details Date Type Department Care Team (Latest Contact Info) Description 05/23/2016 9:53 AM EDT - 05/23/2016 11:59 PM EDT Hospital Encounter XRay at [address] [place] [address] Morgan Kong MD [facility] [place] [address] Right foot pain Discharge Disposition: Home Social [...] Refills Start Date End Date LACTOBAC CMB #[id number] ORAL Take 1 tablet by mouth daily. [...] 8:20 AM EST Office Visit Dermatology at [address] [address] Charu Martin MD [facility] [place] [address] 11/16/2024 1:00 PM EST Office Visit [place] [address] Paula Harris PA [facility] [place] [address] 01/26/2025 9:50 AM EDT Appointment Mammography/[place] [address] Joan Deutsch APRN [facility] [place] [place] [address] 01/26/2025 10:30 AM EDT Office Visit General Surgery at [place] [address] Joan Deutsch APRN [facility] [place] [place] [address] documented as of this encounter Procedures Procedure [...] documented in this encounter Care Teams Sales Agent Trading Stamps Relationship Specialty Start Date End Date Mariluz Watts MD [address] [place] [address] PCP - General 08/22/10 documented as of this encounter
--- OUTSIDE RECORDS SUMMARY | 2024-07-02 16:35 | XMS_ITS | Encounter Summary ---
Author Organization [facility] [place] [address] Care Team Providers Care Debt Management Counselor Name Role Phone Mariluz Watts MD Primary Care Provider [phone] Encounter Details Date Type Department Care Team (Latest Contact Info) Description 12/11/2016 7:33 AM EDT - 12/11/2016 11:59 PM EDT Hospital Encounter XRay at [address] [place] [address] Abrahan Merlos MD [facility] HEMATOLOGY/ONCCAR[place] [address] Osteopenia Discharge Disposition: Home Social History Tobacco [...] 0.5 mg Tablet 12/07/2016 05/01/2018 LACTOBAC CMB #1-[id number] ORAL Take 1 tablet by mouth daily. 12/24/2012 05/01/2018 Lysine 500 mg Tablet Take 1 tablet by mouth daily. Reported on 12/11/2016 05/01/2018 multivitamin (THERAGRAN) tablet Take 1 tablet by mouth daily. Reported on 12/11/2016 07/03/2018 ammonium lactate (LAC-HYDRIN) 12 % lotionIndications:SK (seborrheic keratosis) Apply topically as needed for Dry Skin. Use to rough spots on thighs. 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 pickle cutter both scripts 02/02/14 400 g 10 02/01/2014 [...] 8:20 AM EST Office Visit Dermatology at [facility] [address] [place] [address] Charu Martin MD [facility] DR CONG ROE-DERMATOLOGY [place] [address] 11/16/2024 1:00 PM EST Office [place] [address] Paula Harris PA [facility] DR HDEZ [place] [address] 01/26/2025 9:50 AM EDT Appointment Mammography/[place] [address] Joan Deutsch, [facility] GENERAL SURGERY [facility] [place] [address] 01/26/2025 10:30 AM EDT Office Visit General Surgery at [facility] [place] [address] Joan Deutsch, [facility] DR HDEZ SURG[place] [address] documented as of this encounter Procedures Procedure [...] BMD measurements and plots are available in EEferio under the imaging tab. Paper copies will be sent to providers without EEferio access. If you have received this report without the data sheet and do not have access to Tagito, please contact Radiology Programming Equipment Operator at [phone] Saturday thru Saturday 8am-4pm. Narrative 12/11/2016 2:52 [...] copies will be sent to providers without Tagito access.If you have received this report without the data sheet and do not haveaccess to EEferio, please contact Radiology Programming Equipment Operator at [phone] Saturday thruFriday 8am-4pm. Abrahan Merlos MD IMG DEXA ORDERABLES documented in this encounter Visit Diagnoses Diagnosis Osteopenia Disorder of bone and cartilage, unspecified documented in this encounter Care Teams Debt Management Counselor Relationship Specialty Start Date End Date Mariluz Watts MD [address] [place] [address] PCP - General 08/22/10 documented as of this encounter
--- OUTSIDE RECORDS SUMMARY | 2024-07-02 16:35 | XMS_ITS | Encounter Summary ---
Author Organization [facility] [place] [address] Care Team Providers Care Cell Tuber Hand Name Role Phone Mariluz Watts MD Primary Care Provider [phone] Reason for Referral * Consultation (Routine) - Closed Specialty Diagnoses / Procedures Referred By John lyons Referred To Contact Orthopaedics Diagnoses Right foot pain Scar Aviles II [facility] [place] [address] [facility] Orthopa[facility]ics [address] [place] [phone] Referral ID Status Reason Start Date Expiration Date V isits Requested Visits Authorized [id number] Closed Consult, Test & Treat 05/16/2016 05/16/2017 1 1 Encounter Details Date Type Department Care Team (Latest Contact Info) Description 05/16/2016 9:00 AM EDT Office [place] [address] Scar Aviles II [facility] [place] [address] Primary osteoarthritis involving multiple joints; Right foot [...] would like to meet again with Dr. Knog to review non-surgical options. She also notes [...] 8:20 AM EST Office Visit Dermatology at [facility] [address] [place] [address] Charu Martin MD [facility] [place] [address] 11/16/2024 1:00 PM EST Office Visit General Surgery at [place] [address] Paula Harris PA [facility] [place] [address] 01/26/2025 9:50 AM EDT Appointment Mammography/[place] [address] Joan Deutsch APRN [facility] [place] [address] 01/26/2025 10:30 AM EDT Office Visit General Surgery at [place] [phone] Joan Deutsch QUALITY ASSURANCE LEAD [facility] [place] [address] Scheduled Referrals Name Type Priority Associated Diagnoses Orde r Schedule Referral to Podiatry Outpatient Referral Routine Right foot pain Ordered: 05/16/2016 documented as of this encounter Visit Diagnoses Diagnosis Primary osteoarthritis involving multiple joints Right foot pain Pain in limb documented in this encounter Care Teams Cell Tuber Hand Relationship Specialty Start Date End Date Mariluz Watts MD [address] [place] [address] 1 [place] [address] PCP - General 08/22/10 documented as of this encounter
--- OUTSIDE RECORDS SUMMARY | 2024-07-02 16:35 | XMS_ITS | Encounter Summary ---
Author Organization [facility] [place] [address] Care Team Providers Care Semiconductor Wafers Tester Name Role Phone Mariluz Watts MD Primary Care Provider [phone] Encounter Details Date Type Department Care Team (Latest Contact Info) Description 12/11/2016 7:30 AM EDT - 12/11/2016 7:32 AM EDT Hospital [place] [address] Gardenia Marquez MD [facility] [place] [address] History of breast cancer Discharge Disposition: Home [...] 0.5 mg Tablet 12/07/2016 05/01/2018 LACTOBAC CMB #5-[id number] ORAL Take 1 tablet by mouth daily. 12/24/2012 05/01/2018 Lysine 500 mg Tablet Take 1 tablet by mouth daily. Reported on 12/11/2016 05/01/2018 multivitamin (THERAGRAN) tablet Take 1 tablet by mouth daily. Reported on 12/11/2016 07/03/2018 ammonium lactate (LAC-HYDRIN) 12 % lotionIndications:SK (seborrheic keratosis) Apply topically as needed for Dry Skin. Use to rough spots on thighs. 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 belt picker both scripts 02/02/14 400 g 10 [...] 8:20 AM EST Office Visit Dermatology at [facility] [address] [place] [address] Charu Martin MD [facility] DR [place] [address] 11/16/2024 1:00 PM EST Office [place] [address] Paula Harris PA [facility] [place] [address] 01/26/2025 9:50 AM EDT Appointment Mammography/[place] [address] Joan Deutsch APRN [facility] [place] [address] 01/26/2025 10:30 AM EDT Office [place] [address] Joan Deutsch ANIMAL HOSPITAL OFFICE SUPERVISOR [facility] [place] [address] documented as of this encounter Procedures Procedure [...] BIRADS CATEGORY 2: BENIGN FINDINGS * ??The [place] [employer] and The Society of [...] breast documented in this encounter Care Teams Semiconductor Wafers Tester Relationship Specialty Start Date End Date Mariluz Watts MD [address] [place] [address] PCP - General 08/22/10 documented as of this encounter
--- OUTSIDE RECORDS SUMMARY | 2024-07-02 16:35 | XMS_ITS | Encounter Summary ---
Author Organization [facility] [place] [address] Care Team Providers Care Multifocal Button Grinder Name Role Phone Mariluz Watts MD Primary Care Provider [phone] Encounter Details Date Type Department Care Team (Late st Contact Info) Description 07/27/2015 9:17 AM EDT Anesthesia [place] [address] Jose D Ramos MD [facility] [place] [address] Karla Maurice MD [facility] [place] [address] Anesthesia Record Procedure Summary Procedure Name Responsible [...] 0915; metacarpal vein left (top of hand); zmoc-yfj-lxsicf catheter system; 20 gauge, 1 in length; [...] epi, into skin and subcutaneous tissues (CPT [id number]) left total hip arthroplasty, anterior Hueter approach with Millburn table (CPT code 47269) Left hip intraoperative radiologic examination (CPT code 59970) Amicar infusion (5 g IV load, then 1g/hr x 3 hrs) Components Used: [place] Accolade stem, size 4, 127 degrees Trident PSLcup, 52 mm, solid 32 mm ID, alumina 32-4 mm alumina head ??? Hip pain ??? S/P Right ARSLAN 03/06/2005 (Arcadio) SURGERY DATE: 03/06/2005 ARCADIO STEINER, NICK Angel Surgical Procedure Performed: Right total hip arthroplasty, cementless, qjqbhlm-tb-zjaujhp Components Used: Nina Trident 52 shell outer [...] risks discussed with patient. Plan discussed with LAKSHMI. Pritesh. Assessment: PAT Staff Note documented in this encounter Plan of Treatment Upcoming Encounters Date Type Department Care Team (Late st Contact Info) Description 08/05/2024 8:20 AM EST Office Visit Dermatology at [facility] [address] [place] [address] Charu Martin MD [facility] [place] [address] 11/16/2024 1:00 PM EST Office [place] [address] Paula Harris PA [facility] [place] [address] 01/26/2025 9:50 AM EDT Appointment Mammography/[place] [address] Joan Deutsch POWER TOOL REPAIRER [facility] [place] [address] 01/26/2025 10:30 AM EDT Office [place] [address] Joan Deutsch POWER TOOL REPAIRER [facility] [place] [address] documented as of this encounter Visit Diagnoses [...] mg documented in this encounter Care Teams Multifocal Button Grinder Relationship Specialty Start Date End Date Mariluz Watts MD [address] [place] [address] PCP - General 08/22/10 documented as of this encounter
--- OUTSIDE RECORDS SUMMARY | 2024-07-02 16:35 | XMS_ITS | Encounter Summary ---
Author Organization [facility] [place] [address] Care Team Providers Care Retail Interior Designer Name Role Phone Mariluz Watts MD Primary Care Provider Reason for Visit * Reason Comments Follow-up Encounter Details Date Type Department Care Team (Late st Contact Info) Description 12/11/2016 10:30 AM EDT Office Visit Hematology [place] [address] Abrahan Merlos MD [facility] HEMATOLOGY/[place] [address] Breast cancer, stage 2, right Social History [...] same day. Please call my office at [phone] in the interim if you have any [...] she is considering seeing a urologist at [facility]. She has an occasional headache. 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 Abrahan Merlos MD emergency vehicle operator in Hematology-Oncology documented in this encounter Plan of Treatment Upcoming Encounters Date Type Department Care Team (Late st Contact Info) Description 08/05/2024 8:20 AM EST Office Visit Dermatology at [address] [place] [address] Charu Martin MD [facility] [place] [address] 11/16/2024 1:00 PM EST Office [place] [address] Paula Harris PA [facility] [place] [address] 01/26/2025 9:50 AM EDT Appointment Mammography/DXA at [place] [phone] Joan Deutsch APRN [facility] [place] [address] 01/26/2025 10:30 AM EDT Office [place] [address] Joan Deutsch REAL ESTATE EXECUTIVE ASSISTANT [facility] [place] [address] documented as of this encounter Visit Diagnoses Diagnosis Breast cancer, stage 2, right documented in this encounter Care Teams Retail Interior Designer Relationship Specialty Start Date End Date Mariluz Watts MD [address] [place] [address] [address] [facility] [address] [place] [address] PCP - General 08/22/10 documented as of this encounter
--- OUTSIDE RECORDS SUMMARY | 2024-07-02 16:35 | XMS_ITS | Encounter Summary ---
[place] [address] Care Team Providers Care Tailor'S Aide Name Role Phone Mariluz Watts MD Primary Care Provider [phone] Reason for Visit * Reason Onset Date Comments Medication Problem 08/04/2015 Encounter Details Date Type Department Care Team (Late st Contact Info) Description 08/04/2015 [place] [address] Jennifer Suresh MD [facility] [place] [address] Medication Problem Social History Tobacco Use Types [...] AM EST Office Visit Dermatology at [address] [address] Charu Martin MD [facility] [place] [address] 11/16/2024 1:00 PM EST Office [place] [address] Paula Harris PA [facility] [place] [place] [address] 01/26/2025 9:50 AM EDT Appointment Mammography/[place] [address] Joan Deutsch APRN [facility] [place] [place] [address] 01/26/2025 10:30 AM EDT Office [place] [address] Joan Deutsch APRN [facility] [place] [place] [address] documented as of this encounter Visit Diagnoses Not on filedocumented in this encounter Care Teams Tailor'S Aide Relationship Specialty Start Date End Date Mariluz Watts MD [address] [place] [address] PCP - General 08/22/10 documented as of this encounter
--- OUTSIDE RECORDS SUMMARY | 2024-07-02 16:35 | XMS_ITS | Encounter Summary ---
Author Organization [facility] [place] [address] Care Team Providers Care Supervisor Billposting Name Role Phone Mariluz Watts MD Primary Care Provider [phone] Encounter Details Date Type Department Care Team (Late st Contact Info) Description 03/26/2017 1:30 PM EDT - 03/26/2017 2:30 PM EDT Surgery [place] [address] Gallito Lincoln MD [facility] [place] [address] COLONOSCOPY, POLYPECTOMY, REMOVAL LESION BY SNARE (WRVU [...] ALPRAZolam (XANAX) 0.5 mg Tablet 12/07/2016 05/01/2018 [facility] CMB #[id number] ORAL Take 1 tablet by mouth daily. [...] 8:20 AM EST Office Visit Dermatology at [facility] [address] [place] [address] Charu Martin MD [facility] [place] [address] 11/16/2024 1:00 PM EST Office [place] [address] Paula Harris PA [facility] [place] [address] 01/26/2025 9:50 AM EDT Appointment Mammography/[place] [address] Joan Deutsch, [facility] [place] [address] 01/26/2025 10:30 AM EDT Office [place] [address] Joan Deutsch, [facility] [place] [address] documented as of this encounter Procedures Procedure [...] Report (03/26/2017 2:11 PM EDT) Final Diagnosis [id number] ?Location: 4T; EA07; A The signing pathologist [...] with low grade dysplasia Whole slide scan: [id number] ?? B1-1 [id number] B 1-2 [id number] B 1-3 CLINICAL INFORMATION Specimen Submitted: A [...] Sections/Processing: (T2) ??ejr 03/30/2017 1:11 PM EDT [facility] GI Biopsy 03/26/2017 2:11 PM EDT 03/26/2017 2:11 PM EDT GI Biopsy 03/26/2017 2:11 PM EDT 03/26/2017 2:11 PM EDT Gallito Lincoln MD PATHOLOGY/CYTOLOGY O JOSELUIS Performing Organization Address [facility] [[email or web address] [place] [address] * Specimen to Pathology (surgical or derm) (03/26/2017 2:11 PM EDT) AP Specimen 03/26/2017 2:11 PM EDT 03/26/2017 2:11 PM EDT Narrative [facility] - 03/26/2017 2:11 PM EDT Specimen requisition ordered. ??Separate Pathology report to follow Gallito Lincoln MD PATHOLOGY/CYTOLOGY O JOSELUIS Performing Organization Address [facility] [[email or web address] [place] [address] * Specimen to Pathology (surgical or derm) (03/26/2017 2:11 PM EDT) AP Specimen 03/26/2017 2:11 PM EDT 03/26/2017 2:11 PM EDT Narrative [facility] - 03/26/2017 2:11 PM EDT Specimen requisition ordered. ??Separate Pathology report to follow Gallito Lincoln MD PATHOLOGY/CYTOLOGY O JOSELUIS Performing Organization Address [facility] [[email or web address]] [place] [address] * COLONOSCOPY (03/26/2017 12:20 PM EDT) COLONOSCOPY [facility] Endoscopy Procedure Date: 03/26/2017 12:20 PM ? Patient Name: Diamond Gaming ? Date of : 1945 ? Age: 71 ? Order #: [id number] ? Instrument Name: [id number] ? Procedure: ? Colonoscopy Indications: ? Follow-up for history of adenomatous ? polyps in the colon Providers: ? Gallito Lincoln MD, Niru Chavez, ? RN, Tania Jimenez Referring : ?Mariluz Watts MD Medicines: ? [...] preparation was evaluated using ? the BBPS ([place] Bowel Preparation ? Scale) with scores of: [...] RN) documented in this encounter Care Teams Supervisor Billposting Relationship Specialty Start Date End Date Mariluz Watts MD [address] [place] [address] PCP - General 08/22/10 documented as of this encounter
--- OUTSIDE RECORDS SUMMARY | 2024-07-02 16:35 | XMS_ITS | Encounter Summary ---
[place] [address] Care Team Providers Care Wellhead Pumper Name Role Phone Mariluz Watts MD Primary Care Provider [phone] Reason for Visit * Reason Comments Follow Up Surgery Encounter Details Date Type Department Care Team (Late st Contact Info) Description 12/12/2017 12:15 PM EDT Office [place] [address] Bella Ly APRN [facility] [place] [address] History of breast cancer Social History Tobacco [...] carcinoma with lobular features Tumor Grade: Intermediate Lswzvf-Mknro-Stnnchyfco Score: 7 Tubular Differentiation: 3 Mitotic Rate: [...] sentinel nodes: 2 (Specimen A - Right [place] node) No. positive for carcinoma: 1 (H&E) No. with IHC (+) cells only: 0 (cells not seen by H&E, see Note*) No. negative for carcinoma: 1 (both H&E and IHC For positive nodes: Largest kristi deposit 0.2 cm Extranodal extension Absent Estrogen/Progestin receptors: Performed on blocks C2 and C11 ER immunoreactivity: Positive (see Diagnostic hanna*) OR immunoreactivity: Positive (see Diagnostic hanna*) HER2/shonda expression [...] 8:20 AM EST Office Visit Dermatology at [place] [address] [place] [address] Charu Martin MD [facility] [place] [address] 11/16/2024 1:00 PM EST Office [place] [address] Paula Harris PA [facility] [place] [address] 01/26/2025 9:50 AM EDT Appointment Mammography/[place] [address] Joan Deutsch APRN [facility] [place] [address] 01/26/2025 10:30 AM EDT Office [place] [address] Joan Deutsch, GE [facility] [place] [address] documented as of this encounter Results * [...] BIRADS CATEGORY 2: Benign findings. * ??The [employer] [place] [employer] and The Society of [...] the number below. ? Electronically signed by: Pancho Moreau [facility] ([phone]), at 11/28/2018 10:44 AM Bella Ly ELEVATOR CONSTRUCTOR HELPER IMG MAMMO ORDERA BLES documented in this encounter Visit Diagnoses Diagnosis History of breast cancer Personal history of malignant neoplasm of breast History of breast cancer Personal history of malignant neoplasm of breast documented in this encounter Care Teams Wellhead Pumper Relationship Specialty Start Date End Date Mariluz Watts MD [address] [place] [address] PCP - General 08/22/10 documented as of this encounter
--- OUTSIDE RECORDS SUMMARY | 2024-07-02 16:35 | XMS_ITS | Encounter Summary ---
Author [facility] [place] [address] Care Team Providers Care Armhole Baster Hand Name Role Phone Mariluz Watts MD Primary Care Provider [phone] Encounter Details Date Type Department Care Team (Latest Contact Info) Description 03/26/2017 12:26 PM EDT - 03/26/2017 3:19 PM EDT Hospital Encounter [place] [address] Gallito Lincoln MD [facility] [place] [place] [address] Discharge Disposition: Home Social History Tobacco Use [...] ALPRAZolam (XANAX) 0.5 mg Tablet 12/07/2016 [facility]01/2018 [id number] Take 1 tablet by mouth daily. 12/24/2012 05/01/2018 Lysine 500 mg Tablet Take 1 tablet by mouth daily. Reported on 12/11/2016 05/01/2018 multivitamin (THERAGRAN) tablet Take 1 tablet by mouth daily. Reported on 12/11/2016 07/03/2018 ammonium lactate (LAC-HYDRIN) 12 % lotionIndications:SK (seborrheic keratosis) Apply topically as needed for Dry Skin. Use to rough spots on thighs. 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 pecan picker both scripts 02/02/14 400 g 10 [...] 8:20 AM EST Office Visit Dermatology at [facility] [address] [place] [address] Charu Martin MD [facility] [place] [address] 11/16/2024 1:00 PM EST Office [place] [address] Paula Harris PA [facility] [place] [address] 01/26/2025 9:50 AM EDT Appointment Mammography/[place] [address] Joan Deutsch, LINK KNITTING MACHINE OPERATOR [facility] [place] [address] 01/26/2025 10:30 AM EDT Office Visit [place] [address] Joan Deutsch, LINK KNITTING MACHINE OPERATOR [facility] [place] [address] documented as of this encounter Procedures Procedure [...] Report (03/26/2017 2:11 PM EDT) Final Diagnosis [id number] ?Location: 4T; EA07; A The signing pathologist [...] dysplasia, favor condyloma accuminata. Electronically signed by: ??Willem STEINER, [place] Verified: ??03/30/2017 ?Pathologist DISCUSSION Part B: The [...] with low grade dysplasia Whole slide scan: [id number] ?? B1-1 [id number] B 1-2 [id number] B 1-3 CLINICAL INFORMATION Specimen Submitted: A [...] MD PATHOLOGY/CYTOLOGY O JOSELUIS Performing Organization Address [facility] [place] [address] * Specimen to Pathology (surgical or derm) (03/26/2017 2:11 PM EDT) AP Specimen 03/26/2017 2:11 PM EDT 03/26/2017 2:11 PM EDT Narrative [facility] - 03/26/2017 2:11 PM EDT Specimen requisition ordered. ??Separate Pathology report to follow Gallito Lincoln MD PATHOLOGY/CYTOLOGY Susan HUGGINS Performing Organization Address [facility] [place] [address] * Specimen to Pathology (surgical or derm) (03/26/2017 2:11 PM EDT) AP Specimen 03/26/2017 2:11 PM EDT 03/26/2017 2:11 PM EDT Narrative [facility] - 03/26/2017 2:11 PM EDT Specimen requisition ordered. ??Separate Pathology report to follow Gallito Lincoln MD PATHOLOGY/CYTOLOGY O JOSELUIS Performing Organization Address [facility] [place] [address] * COLONOSCOPY (03/26/2017 12:20 PM EDT) COLONOSCOPY [facility] Endoscopy Procedure Date: 03/26/2017 12:20 PM ? Patient Name: Diamond Gaming ? Date of : 1945 ? Age: 71 ? Order #: [id number] ? Instrument Name: [id number] ? Procedure: ? Colonoscopy Indications: ? Follow-up [...] preparation was evaluated using ? the BBPS ([place] Bowel Preparation ? Scale) with scores of: [...] RN) documented in this encounter Care Teams Armhole Baster Hand Relationship Specialty Start Date End Date Mariluz Watts MD [address] [place] [address] PCP - General 08/22/10 documented as of this encounter
--- OUTSIDE RECORDS SUMMARY | 2024-07-02 16:35 | XMS_ITS | Encounter Summary ---
Author Organization [facility] [place] [address] Care Team Providers Care Correctional Probation Officer Name Role Phone Mariluz Watts MD Primary Care Provider [phone] Encounter Details Date Type Department Care Team (Latest Contact Info) Description 07/27/2015 7:22 AM EDT - 07/27/2015 12:50 PM EDT Hospital Encounter [place] [address] Kami Bowman MD [facility] [place] [address] Nephrolithiasis (Primary Dx) Discharge Disposition: Home Social [...] pain medications The number for questions is [phone] before 5 PM weekdays and [phone] after 5 PM and weekends. Activity level: [...] weeks with a renal ultrasoundprior. Please call [phone] if you do not receive your appointment. [...] Refills Start Date End Date LACTOBAC CMB #[id number] ORAL Take 1 tablet by mouth daily. [...] thighs. 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 continuous pickling line pickler helper both scripts 02/02/14 400 g 10 02/01/2014 [...] Bowman MD - 07/27/2015 9:27 AM EDT [facility] Operative Note Patient Name: Diamond Gaming : [id number] MR#: [id number] Case Date: 07/27/2015 Surgeon: Surgeon(s) and Role: [...] Operative Note Patient Name: Diamond Gaming : [id number] MR#: [id number] Case Date: 07/27/2015 Surgeon: Surgeon(s) and Role: [...] AM EST Office Visit Dermatology at [address] [address] Charu Martin MD [facility] DR CONG JOSE-[place] [address] 11/16/2024 1:00 PM EST Office Visit [place] [address] Paula Harris PA [facility] [place] [address] 01/26/2025 9:50 AM EDT Appointment Mammography/[place] [address] Joan Deutsch APRN [facility] [address] SURGERY [place], [place] [address] 01/26/2025 10:30 AM EDT Office Visit [place] [address] Joan Deutsch APRN [facility] [place] [address] Pending Results Name Type Priority Associated Diagnoses Date /Time FILM LIBRARY-FLUORO OR [id number] ONL Imaging Routine 07/27/2015 10: 20 AM EDT Scheduled Orders Name Type Priority Associated Diagnoses Orde r Schedule FILM LIBRARY-FLUORO OR [id number] ONL Imaging Routine Once PRN (f or [...] 11:02 am) Patient Info ID #: ? [id number] ?: ??[birth year] (69 yrs) Name: ? DIAMOND GAMING ? Visit Date: 09/14/2015 10:43 am Performed By Performed By: ? Abel JOSEDE, ??Christine Attending: ?Nitesh STEINER, Bella Associate: ?Ramon STEINER, [facility] Referred By: ?KAMI BOWMAN MD Service(s) Provided ??URETRO - Retroperitoneal Complete - [id number] ? [id number] Indications ??s/p left ureteroscopy/stent, r/o residual hydro [...] 09/14/2015 11:02 am) Patient Info ID #: [id number] : [birth year] (69 yrs) Name: DIAMOND GAMING Visit Date: 09/14/2015 10:43 am Performed By Performed By: Christine Roman RDMS Attending: Bella Dowling MD Associate: Deuce Navarro MD Referred By: KAMI BOWMAN MD Service(s) Provided URETRO - Retroperitoneal Complete - [id number] Indications s/p left ureteroscopy/stent, r/o residual hydro [...] Brenda Pisano RN)1051 (Given - Provider: Brenda D Pisano, RN) iohexol (OMNIPAQUE) 300 mg/mL solution (CANCELED) [...] Recovery documented in this encounter Care Teams Correctional Probation Officer Relationship Specialty Start Date End Date Mariluz Watts MD [address] [place] [address] PCP - General 08/22/10 documented as of this encounter
--- OUTSIDE RECORDS SUMMARY | 2024-07-02 16:35 | XMS_ITS | Encounter Summary ---
Author Organization [facility] [place] [address] Care Team Providers Care Trumpet Player Name Role Phone Mariluz Watts MD Primary Care Provider [phone] Encounter Details Date Type Department Care Team (Latest Contact Info) Description 09/14/2015 11:00 AM EST [place] [address] Rosales Bowman MD [facility] [address] History of nephrolithiasis Social History Tobacco Use [...] rule out a UTI, she went to [facility] ago and had [...] [facility] [address] [place] [address] Charu Martin MD [facility] DR [place] [address] 11/16/2024 1:00 PM EST Office [place] [address] Paula Harris PA [facility] [place] [address] 01/26/2025 9:50 AM EDT Appointment Mammography/DXA at [place] [phone] Joan Deutsch, GE [facility] [place] [address] 01/26/2025 10:30 AM EDT Office Visit General Surgery at [place] [phone] Joan Deutsch, [facility] [place] [address] documented as of this encounter Visit Diagnoses Diagnosis History of nephrolithiasis Personal history of urinary calculi documented in this encounter Care Teams Trumpet Player Relationship Specialty Start Date End Date Mariluz Watts MD [address] [place] [address] PCP - General 08/22/10 documented as of this encounter
--- OUTSIDE RECORDS SUMMARY | 2024-07-02 16:35 | XMS_ITS | Encounter Summary ---
Author Organization [facility] [place] [address] Care Team Providers Care Select Banker Name Role Phone Mariluz Watts MD Primary Care Provider [phone] Encounter Details Date Type Department Care Team (Latest Contact Info) Description 12/12/2017 12:16 PM EDT - 12/12/2017 11:59 PM EDT Hospital [place] [address] Brayedn Chambers MD [facility] [place] [address] History of breast cancer Discharge Disposition: Home [...] ALPRAZolam (XANAX) 0.5 mg Tablet 12/07/2016 05/01/2018 [id number] ORAL Take 1 tablet by mouth daily. 12/24/2012 05/01/2018 Lysine 500 mg Tablet Take 1 tablet by mouth daily. Reported on 12/11/2016 05/01/2018 multivitamin (THERAGRAN) tablet Take 1 tablet by mouth daily. Reported on 12/11/2016 07/03/2018 ammonium lactate (LAC-HYDRIN) 12 % lotionIndications:SK (seborrheic keratosis) Apply topically as needed for Dry Skin. Use to rough spots on thighs. 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 picking table worker both scripts 02/02/14 400 g 10 [...] 8:20 AM EST Office Visit Dermatology at [facility] [address] [place] [address] Charu Martin MD [facility] [place] [address] 11/16/2024 1:00 PM EST Office [place] [address] Paula Harris PA [facility] [place] [address] 01/26/2025 9:50 AM EDT Appointment Mammography/[place] [address] Joan Deutsch, [place] [facility] [place] [address] 01/26/2025 10:30 AM EDT Office [place] [address] Joan Deutsch, [place] [facility] [place] [place] [address] documented as of this encounter Procedures Procedure [...] BIRADS CATEGORY 2: BENIGN FINDINGS * ??The [employer] and The Society of [...] breast documented in this encounter Care Teams Select Banker Relationship Specialty Start Date End Date Mariluz Watts MD [address] [facility] [address] [place] [address] PCP - General 08/22/10 documented as of this encounter
--- OUTSIDE RECORDS SUMMARY | 2024-07-02 16:35 | XMS_ITS | Encounter Summary ---
Author Organization [facility] [place] [address] Care Team Providers Care Lithopress Operator Name Role Phone Mariluz Watts MD Primary Care Provider [phone] Encounter Details Date Type Department Care Team (Latest Contact Info) Description 07/03/2018 9:45 AM EDT Hospital Encounter XRay at [address] [place] [address] Shekhar Moody MD [facility] [place]OPAED[place] [address] History of total left hip arthroplasty Discharge [...] 8:20 AM EST Office Visit Dermatology at [place] [address] [place] [address] Charu Martin MD [facility] [place] [address] 11/16/2024 1:00 PM EST Office [place] [address] Paula Harris PA [facility] [place] [place] [address] 01/26/2025 9:50 AM EDT Appointment Mammography[place] [address] Joan Deutsch APRN [facility] [place] [place] [address] 01/26/2025 10:30 AM EDT Office [place] [address] Joan Deutsch APRN [facility] [place] [place] [address] documented as of this encounter Procedures Procedure [...] arthroplasty documented in this encounter Care Teams Lithopress Operator Relationship Specialty Start Date End Date Mariluz Watts MD [address] [place] [address] PCP - General 08/22/10 documented as of this encounter
--- OUTSIDE RECORDS SUMMARY | 2024-07-02 16:36 | XMS_ITS | Encounter Summary ---
Author Organization [facility] [place] [address] Care Team Providers Care Stars Coordinator Name Role Phone Mariluz Watts MD Primary Care Provider [phone] Reason for Visit * Auth/Cert Specialty Diagnoses / Procedures Referred By John lyons Referred To Contact Diagnoses Pain Procedures CYSTO, STENT PLACEMENT Referral ID Status Reason Start Date Expiration Date Visits Re quested Visits Authorized [id number] 1 1 Encounter Details Date Type Department Care Team (Late st Contact Info) Description 07/11/2015 12:05 AM EDT - 07/11/2015 1:57 PM EDT Hospital Encounter Radiology Library at [facility] [place] [address] Jose D Chauhan III, MD [facility] [place] [place] [address] Social History Tobacco Use Types Packs/Day Years [...] Refills Start Date End Date LACTOBAC CMB #[id number] ORAL Take 1 tablet by mouth daily. [...] rough spots on thighs. 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 pick and shovel man both scripts 02/02/14 400 g 10 02/01/2014 [...] 8:20 AM EST Office Visit Dermatology at [place] [address] [place] [address] Charu Martin MD [facility] [address] 11/16/2024 1:00 PM EST Office [place] [address] Paula Harris PA [facility] [place] [address] 01/26/2025 9:50 AM EDT Appointment Mammography/[place] [address] Joan Deutsch APRN [facility] [place] [address] 01/26/2025 10:30 AM EDT Office [place] [address] Joan Deutsch APRN [facility] [place] [address] Pending Results Name Type Priority Associated Diagnoses Date /Time FILM LIBRARY-FLUORO OR Z-[id number] ONL Imaging Routine 07/11/2015 7:1 8 PM EDT documented as of this encounter Visit Diagnoses Not on filedocumented in this encounter Care Teams Stars Coordinator Relationship Specialty Start Date End Date Dobbertin, Mariluz, MD [address] [place] [address] PCP - General 08/22/10 documented as of this encounter
--- OUTSIDE RECORDS SUMMARY | 2024-07-02 16:36 | XMS_ITS | Encounter Summary ---
[place] [address] Care Team Providers Care Seal Delivery Vehicle Officer Name Role Phone Mariluz Watts MD Primary Care Provider [phone] Reason for Visit * Reason Onset Date Comments Questions 07/07/2014 Encounter Details Date Type Department Care Team (Late st Contact Info) Description 07/07/2014 Telephone [place] [address] Kamala Mello, RN Questions Social History Tobacco [...] from a 07/25/12 that a PA from [facility] - she has aortic sclerosis, stage II dysfunction. She will call there for copy of report and follow up with her PCP. documented in this encounter Plan of Treatment Upcoming Encounters Date Type Department Care Team (Late st Contact Info) Description 08/05/2024 8:20 AM EST Office Visit Dermatology at [facility] [address] [place] [address] Charu Martin MD [facility] [address] [place] [address] 11/16/2024 1:00 PM EST Office Visit General Surgery at [place] [phone] Paula Harris PA [facility] [place] [address] 01/26/2025 9:50 AM EDT Appointment Mammography/[place] [address] Joan Deutsch APRN [facility] [place] [address] 01/26/2025 10:30 AM EDT Office [place] [address] Joan Deutsch APRN [facility] [place] [address] documented as of this encounter Visit Diagnoses Not on filedocumented in this encounter Care Teams Seal Delivery Vehicle Officer Relationship Specialty Start Date End Date Mariluz Watts MD [address] [place] [address] [address] [place] [address] PCP - General 08/22/10 documented as of this encounter
--- OUTSIDE RECORDS SUMMARY | 2024-07-02 16:36 | XMS_ITS | Encounter Summary ---
[place] [address] Care Team Providers Care Cna Ltc Name Role Phone Mariluz Watts MD Primary Care Provider [phone] Reason for Visit * Reason Onset Date Comments Other 07/22/2014 Encounter Details Date Type Department Care Team (Late st Contact Info) Description 07/22/2014 Telephone [place] [address] Kimberly Ackerman RN Other Social History Tobacco [...] 8:20 AM EST Office Visit Dermatology at [address] [address] Charu Martin MD [facility] [place] [address] 11/16/2024 1:00 PM EST Office [place] [address] Paula Harris PA [facility] [place] [address] 01/26/2025 9:50 AM EDT Appointment Mammography[place] [address] Joan Deutsch APRN [facility] [place] [place] [address] 01/26/2025 10:30 AM EDT Office [place] [address] Joan Deutsch APRN [facility] [place] [place] [address] documented as of this encounter Visit Diagnoses Not on filedocumented in this encounter Care Teams Cna Ltc Relationship Specialty Start Date End Date Mariluz Watts MD [address] [place] [address] PCP - General 08/22/10 documented as of this encounter
--- OUTSIDE RECORDS SUMMARY | 2024-07-02 16:36 | XMS_ITS | Encounter Summary ---
Author Organization [facility] [place] [address] Care Team Providers Care Earthmoving Labourer Name Role Phone Mariluz Watts MD Primary Care Provider [phone] Reason for Visit * Reason Comments Follow-up Encounter Details Date Type Department Care Team (Late st Contact Info) Description 12/21/2014 4:30 PM EDT Follow-Up Hematology [place] [address] Abrahan Merlos MD [facility] DR HEMATOLOGY/[place] [address] Breast cancer, stage 2, right Discharge Disposition: [...] her, and she is now packing up [employer]. She has a father with dementia. She [...] in followup in May2015. Abrahan Merlos MD career specialist in Hematology-Oncology documented in this encounter Plan of Treatment Upcoming Encounters Date Type Department Care Team (Late st Contact Info) Description 08/05/2024 8:20 AM EST Office Visit Dermatology at [place] [address] [place] [address] Charu Martin MD [facility] [place] [address] 11/16/2024 1:00 PM EST Office [place] [address] Paula Harris PA [facility] [place] [place] [address] 01/26/2025 9:50 AM EDT Appointment Mammography[place] [address] Joan Deutsch APRN [facility] [place] [place] [address] 01/26/2025 10:30 AM EDT Office [place] [address] Joan Deutsch APRN [facility] [place] [place] [address] documented as of this encounter Procedures Procedure [...] right documented in this encounter Care Teams Earthmoving Labourer Relationship Specialty Start Date End Date Mariluz Watts MD [address] [place] [address] PCP - General 08/22/10 documented as of this encounter
--- OUTSIDE RECORDS SUMMARY | 2024-07-02 16:36 | XMS_ITS | Encounter Summary ---
Author Organization [facility] [place] [address] Care Team Providers Care Playground Monitor Name Role Phone Mariluz Watts MD Primary Care Provider [phone] Encounter Details Date Type Department Care Team (Latest Contact Info) Description 12/21/2014 1:21 PM EDT - 12/21/2014 11:59 PM EDT Hospital Encounter Hematology [place] [address] CLINIC, DR KATARINA [place], Abrahan Chavarria MD [facility] HEMATOLOGY/[place] [address] Discharge Disposition: Home Social History Tobacco Use [...] Refills Start Date End Date LACTOBAC CMB #[id number] ORAL Take 1 tablet by mouth daily. [...] to rough spots on thighs. 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 garbage pick up man both scripts 02/02/14 400 g 10 [...] 8:20 AM EST Office Visit Dermatology at [facility] [address] [place] [address] Charu Martin MD [facility] [place] [address] 11/16/2024 1:00 PM EST Office Visit General Surgery at [place] [address] Paula Harris, PA [facility] [place] [address] 01/26/2025 9:50 AM EDT Appointment Mammography[place] [address] Joan Deutsch, [place] [facility] [place] [address] 01/26/2025 10:30 AM EDT Office Visit General Surgery at [place] [phone] Joan Deutsch, GE [facility] [place] [address] documented as of this encounter Visit Diagnoses Not on filedocumented in this encounter Care Teams Playground Monitor Relationship Specialty Start Date End Date Mariluz Watts MD [address] [place] [address] PCP - General 08/22/10 documented as of this encounter
--- OUTSIDE RECORDS SUMMARY | 2024-07-02 16:36 | XMS_ITS | Encounter Summary ---
[place] [address] Care Team Providers Care Production Technician Name Role Phone Mariluz Watts MD Primary Care Provider [phone] Reason for Visit * Reason Onset Date Comments Questions 02/26/2014 Encounter Details Date Type Department Care Team (Late st Contact Info) Description 02/26/2014 Telephone [place] [address] Kian Ervin MD [address] [place] [address] Questions Social History Tobacco Use Types Packs/Day [...] 03/01/14 since she has to come from [facility]. Please call her back at [phone]. documented in this encounter Plan of Treatment Upcoming Encounters Date Type Department Care Team (Late st Contact Info) Description 08/05/2024 8:20 AM EST Office Visit Dermatology at [address] [address] Charu Martin MD [facility] DR [place] [address] 11/16/2024 1:00 PM EST Office [place] [address] Paula Harris PA [facility] [place] [address] 01/26/2025 9:50 AM EDT Appointment Mammography/[place] [address] Joan Deutsch APRN [facility] [place] [address] 01/26/2025 10:30 AM EDT Office [place] [address] Joan Deutsch APRN [facility] [place] [address] documented as of this encounter Results * XR Joint Team alignment AP LAT Schuss [place] (03/01/2014 8:56 AM EDT) Anatomical Region Laterality [...] leg documented in this encounter Care Teams Production Technician Relationship Specialty Start Date End Date Mariluz Watts MD [address] [place] [address] PCP - General 08/22/10 documented as of this encounter
--- OUTSIDE RECORDS SUMMARY | 2024-07-02 16:36 | XMS_ITS | Encounter Summary ---
[place] [address] Care Team Providers Care Cash Applications Representative Name Role Phone Mariluz Watts MD Primary Care Provider [phone] Reason for Visit * Reason Comments Follow Up Surgery left ant sharmin 2 Encounter Details Date Type Department Care Team (Latest Contact Info) Description 07/13/2014 8:00 AM EDT Office [place] [address] Kian Ervin MD [address] [place] [address] Primary osteoarthritis of both knees (Primary Dx); [...] 8:20 AM EST Office Visit Dermatology at [address] [address] Charu Martin MD [facility] DR CONG [place] [address] 11/16/2024 1:00 PM EST Office [place] [address] Paula Harris PA [facility] [place] [address] 01/26/2025 9:50 AM EDT Appointment Mammography/[place] [address] Joan Deutsch APRN [facility] [place] [address] 01/26/2025 10:30 AM EDT Office [place] [address] Joan Deutsch APRN [facility] [place] [address] documented as of this encounter Visit Diagnoses Diagnosis Primary osteoarthritis of both knees- Primary Primary localized osteoarthrosis, lower leg H/O total hip arthroplasty, bilateral Hip flexor tendinitis, left documented in this encounter Care Teams Cash Applications Representative Relationship Specialty Start Date End Date Mariluz Watts MD [address] [place] [address] PCP - General 08/22/10 documented as of this encounter
--- OUTSIDE RECORDS SUMMARY | 2024-07-02 16:36 | XMS_ITS | Encounter Summary ---
Author Organization [facility] [place] [address] Care Team Providers Care Clutch Inspector Name Role Phone Mariluz Watts MD Primary Care Provider [phone] Reason for Visit * Reason Comments Left Hip Pain hip pain Left Knee Pain knee pain Encounter Details Date Type Department Care Team (Late st Contact Info) Description 03/01/2014 8:30 AM EDT Office [place] [address] Alexandro Santiago, PA [facility] [place] [address] S/P Left Anterior ARSLAN- 07/22/12 (Dr. Ervin) [...] 8:20 AM EST Office Visit Dermatology at [place] [address] [place] [address] Charu Martin MD [facility] DR [place]G [place] [address] 11/16/2024 1:00 PM EST Office [place] [address] Paula Harris PA [facility] [place] [address] 01/26/2025 9:50 AM EDT Appointment Mammography/[place] [address] Joan Deutsch, SURGERY NURSE [facility] [place] [address] 01/26/2025 10:30 AM EDT Office [place] [address] Joan Deutsch, [facility] [place] [address] documented as of this encounter Results * [...] pre- procedural time-out was performed as per [facility] protocol. ?? The patient was placed supine [...] pre- procedural time-out was performed as per [facility] protocol. The patient was placed supine on [...] means documented in this encounter Care Teams Clutch Inspector Relationship Specialty Start Date End Date Mariluz Watts MD [address] [place] [address] PCP - General 08/22/10 documented as of this encounter
--- OUTSIDE RECORDS SUMMARY | 2024-07-02 16:36 | XMS_ITS | Encounter Summary ---
[place] [address] Care Team Providers Care Roll Coating Machine Operator Name Role Phone Mariluz Watts MD Primary Care Provider [phone] Encounter Details Date Type Department Care Team (Late st Contact Info) Description 02/24/2014 Telephone [place] [address] Kian Ervin MD [address] [place] [address] Social History Tobacco Use Types Packs/Day Years [...] ABOUT THIS. SHE CAN BE REACHED AT [phone]. On a scale of 1 to 10, where would you rate your pain: N/A I will noa this as urgent, the nurses continuously monitor their messages and will call as soon asthey are able. documented in this encounter Plan of Treatment Upcoming Encounters Date Type Department Care Team (Late st Contact Info) Description 08/05/2024 8:20 AM EST Office Visit Dermatology at [address] [address] Charu Martin MD [facility] [place] [address] 11/16/2024 1:00 PM EST Office [place] [address] Paula Harris PA [facility] [place] [address] 01/26/2025 9:50 AM EDT Appointment Mammography/[place] [address] Joan Deutsch APRN [facility] [address] 01/26/2025 10:30 AM EDT Office [place] [address] Joan Deutsch, GE [facility] [address] documented as of this encounter Visit Diagnoses Not on filedocumented in this encounter Care Teams Roll Coating Machine Operator Relationship Specialty Start Date End Date Mariluz Watts MD [address] [place] [address] [address] [facility] [address] [place] [address] PCP - General 08/22/10 documented as of this encounter
--- OUTSIDE RECORDS SUMMARY | 2024-07-02 16:36 | XMS_ITS | Encounter Summary ---
Author Organization [facility] [place] [address] Care Team Providers Care Electronic Imaging System Operator Name Role Phone Mariluz Watts MD Primary Care Provider [phone] Encounter Details Date Type Department Care Team (Late st Contact Info) Description 03/01/2014 Orders [place] [address] aMddi Esparza, STEAMING CABINET TENDER Social History Tobacco Use Types Packs/Day Years [...] at [facility] [address] [place] [address] Charu Martin MD [facility] DR [place] [address] 11/16/2024 1:00 PM EST Office Visit General Surgery at [place] [address] Paula Harris PA [facility] [address] 01/26/2025 9:50 AM EDT Appointment Mammography/[place] [address] Joan Deutsch RELATIONSHIP MANAGER [facility] [address] 01/26/2025 10:30 AM EDT Office Visit General Surgery at [place] [address] Joan Deutsch, RELATIONSHIP MANAGER [facility] [address] documented as of this encounter Visit Diagnoses Not on filedocumented in this encounter Care Teams Electronic Imaging System Operator Relationship Specialty Start Date End Date Mariluz Watts MD [address] [place] [address] PCP - General 08/22/10 documented as of this encounter
--- OUTSIDE RECORDS SUMMARY | 2024-07-02 16:36 | XMS_ITS | Encounter Summary ---
Author Organization [facility] [place] [address] Care Team Providers Care Right Of Way Buyer Name Role Phone Mariluz Watts MD Primary Care Provider [phone] Reason for Visit * Reason Comments Follow-up Encounter Details Date Type Department Care Team (Late st Contact Info) Description 06/28/2015 8:00 AM EDT Follow-Up Hematology [place] [address] Abrahan Merlos MD [facility] DR HEMATOLOGY/[place] [address] Breast cancer, stage 2, right Discharge Disposition: [...] between the rib and the breast bone. [phone]. Next bone density in November 2016. documented [...] appointment with Coral Ly. Abrahan Merlos MD supervisor mixing in Hematology-Oncology documented in this encounter Plan of Treatment Upcoming Encounters Date Type Department Care Team (Late st Contact Info) Description 08/05/2024 8:20 AM EST Office Visit Dermatology at [facility] [address] [place] [address] Charu Martin MD [facility] DR CONG [place] [address] 11/16/2024 1:00 PM EST Office Visit General Surgery at [place] [phone] Paula Harris PA [facility] [place] [address] 01/26/2025 9:50 AM EDT Appointment Mammography/DXA at [place] [phone] Joan Deutsch APRN [facility] [place] [address] 01/26/2025 10:30 AM EDT Office Visit General Surgery at [place] [phone] Joan Deutsch FOREST SCIENCE PROFESSOR [facility] [place] [address] documented as of this encounter Visit Diagnoses Diagnosis Breast cancer, stage 2, right documented in this encounter Care Teams Right Of Way Buyer Relationship Specialty Start Date End Date Mariluz Watts MD [address] [place] [address] [address] [place] [address] PCP - General 08/22/10 documented as of this encounter
--- OUTSIDE RECORDS SUMMARY | 2024-07-02 16:36 | XMS_ITS | Encounter Summary ---
Author Organization [facility] [place] [address] Care Team Providers Care Flat Locker Name Role Phone Mariluz Watts MD Primary Care Provider [phone] Reason for Visit * Auth/Cert Specialty Diagnoses / Procedures Referred By John lyons Referred To Contact Diagnoses Pain Procedures CYSTO, STENT PLACEMENT Referral ID Status Reason Start Date Expiration Date Visits Re quested Visits Authorized [id number] 1 1 Encounter Details Date Type Department Care Team (Late st Contact Info) Description 07/11/2015 5:47 PM EDT Anesthesia [place] [address] Aide Raymundo MD [facility] [place] [address] Jeramy Hernandez MD [facility] [place] [address] Anesthesia Record Procedure Summary Procedure Name Responsible [...] epi, into skin and subcutaneous tissues (CPT [id number]) left total hip arthroplasty, anterior Hueter approach with Clinton table (CPT code 86827) Left hip intraoperative radiologic examination (CPT code 26570) Amicar infusion (5 g IV load, then 1g/hr x 3 hrs) Components Used: Orient Accolade stem, size 4, 127 degrees Trident PSLcup, 52 mm, solid 32 mm ID, alumina 32-4 mm alumina head ??? Hip pain ??? S/P Right ARSLAN 03/06/2005 (Arcadio) SURGERY DATE: 03/06/2005 ARCADIO STEINER, NICK Angel Surgical Procedure Performed: Right total hip arthroplasty, cementless, [id number] Components Used: Orient Trident 52 shell outer diameter Femoral head 32-4 mm Orient Accolade Femoral stem size 4, 127 deg [...] risks discussed with patient. Plan discussed with PRODUCE CLERK. Misc. Assessment: documented in this encounter Plan of Treatment Upcoming Encounters Date Type Department Care Team (Late st Contact Info) Description 08/05/2024 8:20 AM EST Office Visit Dermatology at [facility] [address] [place] [address] Charu Martin MD [facility] [place] [address] 11/16/2024 1:00 PM EST Office [place] [address] Paula Harris PA [facility] [place] [address] 01/26/2025 9:50 AM EDT Appointment Mammography/[place] [address] Joan Deutsch SUBSYSTEMS ENGINEER [facility] GENERAL SURG[place] [address] 01/26/2025 10:30 AM EDT Office Visit General Surgery at [facility] [place] [address] Joan Deutsch SUBSYSTEMS ENGINEER [facility] [place] [address] documented as of this encounter Visit Diagnoses [...] 1656, Administer over 4 Hours, call center director to OR, Indication for (Active or Suspected): [...] 3 days) patch 1 dose, Starting on 07/11/15 at 1735, Until Sat07/11/15 at 1747, FREDO VASQUEZ: cabinet override Given 07/11/2015 5:47 PM EDT 1.5 mg documented in this encounter Care Teams Flat Locker Relationship Specialty Start Date End Date Mariluz Watts MD [address] [place] [address] PCP - General 08/22/10 documented as of this encounter
--- OUTSIDE RECORDS SUMMARY | 2024-07-02 16:36 | XMS_ITS | Encounter Summary ---
[place] [address] Care Team Providers Care Test Desk Operator Name Role Phone Mariluz Watts MD Primary Care Provider [phone] Reason for Visit * Reason Comments Breast Cancer Encounter Details Date Type Department Care Team (Late st Contact Info) Description 07/02/2014 9:00 AM EDT Follow-Up Hematology [place] [address] Abrahan Merlos MD [facility] DR HEMATOLOGY/[place] [address] Breast cancer, stage 2, right; Osteopenia Discharge [...] anastrozole in April 2015. Abrahan Merlos MD senior engineering team leader in Hematology-Oncology documented in this encounter Plan of Treatment Upcoming Encounters Date Type Department Care Team (Late st Contact Info) Description 08/05/2024 8:20 AM EST Office Visit Dermatology at [place] [address] [place] [address] Charu Martin MD [facility] [place] [address] 11/16/2024 1:00 PM EST Office [place] [address] Paula Harris PA [facility] [place] [place] [address] 01/26/2025 9:50 AM EDT Appointment Mammography/[place] [address] Joan Deutsch APRN [facility] [place] [address] 01/26/2025 10:30 AM EDT Office [place] [address] Joan Deutsch APRN [facility] [place] [address] documented as of this encounter Results * Hepatic Function Panel (12/21/2014 1:27 PM EDT) Protein, Total 7.0 6.1 - 8.0 gm/dL TALHANER MILLENNIUM Albumin 4.8 3.2 - 5.2 gm/dL [...] In Lab Abrahan Merlos MD CHEMISTRY ORDERABLES [facility] documented in this encounter Visit Diagnoses Diagnosis Breast cancer, stage 2, right Osteopenia Disorder of bone and cartilage, unspecified documented in this encounter Care Teams Test Desk Operator Relationship Specialty Start Date End Date Mariluz Watts MD [address] [place] [address] [address] [facility] [address] [place] [address] PCP - General 08/22/10 documented as of this encounter
--- OUTSIDE RECORDS SUMMARY | 2024-07-02 16:36 | XMS_ITS | Encounter Summary ---
Author Organization [facility] [place] [address] Care Team Providers Care Sinker Puller Name Role Phone Mariluz Watts MD Primary Care Provider [phone] Encounter Details Date Type Department Care Team (Latest Contact Info) Description 07/13/2014 7:18 AM EDT - 07/13/2014 11:59 PM EDT Hospital Encounter XRay at [address] [place] [address] CLINIC, Kian Stone MD [address] [place] [address] S/P Left Anterior ARSLAN- 07/22/12 (Dr. Ervin) [...] Refills Start Date End Date LACTOBAC CMB #[id number] ORAL Take 1 tablet by mouth daily. [...] to rough spots on thighs. 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 moss picker both scripts 02/02/14 400 g 10 [...] 8:20 AM EST Office Visit Dermatology at [facility] [address] [place] [address] Charu Martin MD [facility] [place] [address] 11/16/2024 1:00 PM EST Office Visit General Surgery at [place] [phone] Paula Harris PA [facility] [place] [address] 01/26/2025 9:50 AM EDT Appointment Mammography/[place] [phone] Joan Deutsch EXERCISE TEACHER [facility] [place] [address] 01/26/2025 10:30 AM EDT Office [place] [phone] Joan Deutsch, EXERCISE TEACHER [facility] [place] [address] documented as of this encounter Procedures Procedure [...] means documented in this encounter Care Teams Sinker Puller Relationship Specialty Start Date End Date Mariluz Watts MD [address] [place] [address] PCP - General 08/22/10 documented as of this encounter
--- OUTSIDE RECORDS SUMMARY | 2024-07-02 16:36 | XMS_ITS | Encounter Summary ---
[place] [address] Care Team Providers Care Shaker Repairer Name Role Phone Mariluz Watts MD Primary Care Provider [phone] Encounter Details Date Type Department Care Team (Late Contact Info) Description 07/02/2014 Orders Only [place]ology [place] [address] Abrahan Merlos MD [facility] HEMATOLOGY/[place] [address] Breast cancer, stage 2, right (Primary Dx) [...] 8:20 AM EST Office Visit Dermatology at [facility] [address] [place] [address] Charu Martin MD [facility] [place] [address] 11/16/2024 1:00 PM EST Office Visit General Surgery at [place] [phone] Paula Harris PA [facility] [place] [address] 01/26/2025 9:50 AM EDT Appointment Mammography/[place] [phone] Joan Deutsch, GE [facility] [place] [address] 01/26/2025 10:30 AM EDT Office [place] [address] Joan Deutsch CREATIVE SPECIALIST [facility] [place] [address] documented as of this encounter Visit Diagnoses Diagnosis Breast cancer, stage 2, right- Primary documented in this encounter Care Teams Shaker Repairer Relationship Specialty Start Date End Date Mariluz Watts MD [address] [facility] [address] [place] [address] PCP - General 08/22/10 documented as of this encounter
--- OUTSIDE RECORDS SUMMARY | 2024-07-02 16:36 | XMS_ITS | Encounter Summary ---
[place] [address] Care Team Providers Care Organ Pipe Finisher Name Role Phone Mariluz Watts MD Primary Care Provider [phone] Encounter Details Date Type Department Care Team (Latest Contact Info) Description 03/16/2014 8:57 AM EDT - 03/16/2014 11:59 PM EDT Hospital [place] [address] CLINIC, Kian Stone MD [address] [place] [address] S/P Left Anterior ARSLAN- 07/22/12 (Dr. Ervin) [...] Refills Start Date End Date LACTOBAC CMB #[id number] ORAL Take 1 tablet by mouth daily. [...] to rough spots on thighs. 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 fish bait picker both scripts 02/02/14 400 g 10 [...] Pre-Procedure Diagnose(s): Left hip pain [employer] [id number] HISTORY: Pain left hip Left iliopsoas tendon sheath INJECTION UNDER CT TECHNIQUE: After an extensive conversation with the patient regarding risks and benefits, oral and written consent were obtained. A pre- procedural time-out was performed as per [facility] protocol. The patient was placed supine on [...] AM EST Office Visit Dermatology at [address] [address] Charu Martin MD [facility] [place] [address] 11/16/2024 1:00 PM EST Office [place] [address] Paula Harris PA [facility] [place] [address] 01/26/2025 9:50 AM EDT Appointment Mammography/[place] [address] Joan Deutsch APRN [facility] [place] [address] 01/26/2025 10:30 AM EDT Office [place] [address] Joan Deutsch APRN [facility] [place] [address] documented as of this encounter Procedures Procedure [...] pre- procedural time-out was performed as per [facility] protocol. ?? The patient was placed supine [...] pre- procedural time-out was performed as per [facility] protocol. The patient was placed supine on [...] means documented in this encounter Care Teams Organ Pipe Finisher Relationship Specialty Start Date End Date Mariluz Watts MD [address] [place] [address] [address] [place] [address] PCP - General 08/22/10 documented as of this encounter
--- OUTSIDE RECORDS SUMMARY | 2024-07-02 16:36 | XMS_ITS | Encounter Summary ---
Author Organization [facility] [place] [address] Care Team Providers Care Websphere Message Broker Developer Name Role Phone Mariluz Watts MD Primary Care Provider [phone] Reason for Visit * Reason Comments Nephrolithiasis * Auth/Cert Specialty Diagnoses / Procedures Referred By John lyons Referred To Contact Diagnoses Pain Procedures CYSTO, STENT PLACEMENT Referral ID Status Reason Start Date Expiration Date Visits Re quested Visits Authorized [id number] 1 1 Encounter Details Date Type Department Care Team (Late st Contact Info) Description 07/11/2015 5:00 PM EDT - 07/11/2015 6:20 PM EDT Surgery [place] [address] Stephen Chauhan III, MD [facility] [place] [address] CYSTO, STENT PLACEMENT (WRVU 2.82) Social History [...] epi, into skin and subcutaneous tissues (CPT [id number]) left total hip arthroplasty, anterior Hueter approach with [place] table (CPT code 23569) Left hip intraoperative radiologic examination (CPT code 02609) Amicar infusion (5 g IV load, then 1g/hr x 3 hrs) Components Used: Nicole Accolade stem, size 4, 127 degrees Trident PSLcup, 52 mm, solid 32 mm ID, alumina 32-4 mm alumina head ??? Hip pain ??? S/P Right ARSLAN 03/06/2005 ([facility]) SURGERY DATE: 03/06/2005 ARCADIO STEINER, NICK Angel Surgical Procedure Performed: Right total hip arthroplasty, cementless, [id number] Components Used: Nicole Trident 52 shell outer [...] 5Units blood ??? Degenerative joint disease Rt ARSLNA ??? Breast cancer, stage 2 Ms. Gaming [...] the past, who presents in transfer from [facility] with a 3-4 mm mid left ureteral [...] which prompted her to present to the [facility] ED early this morning. There, labs were [...] Hospital Course: Ms. Gaming was admitted to [facility] 07/11/15. A stent was placed in her Left ureter the same day. She received IV antibiotics for 2 days and when her urine culture results from 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 Activity level: [...] stent removal in the office. Please call [phone] if you do not receive your appointment. [...] Discharge References/Attachments: Discharge References/Attachments KIDNEY STONE DIET (OCCITAN) Electronically Signed By: HARSHA VENTURA MD 07/13/2015 documented in this encounter Discharge Instructions * Patient Instructions* Harsha Ventura MD - 07/12/2015 12:13 PM EDT Call your doctor for: ??? fevers greater than 101 ??? severe nausea or vomiting ??? increasing pain not controlled by pain medications The number for questions is [phone] before 5 PM weekdays and [phone] after 5 PM and weekends. Activity level: [...] stent removal in the office. Please call [phone] if you do not receive your appointment. [...] through Care Everywhere. * KIDNEY STONE DIET (OCCITAN) documented in this encounter Medications at Time of Discharge Medication Sig Dispensed Refills Start Date End Date LACTOBAC CMB #[id number] ORAL Take 1 tablet by mouth daily. [...] team. No discharge needs identified atthis time. Bilingual Case Manager remains available as needed for coordination [...] with a PMH of nephrolithiasis transferred to [facility] with a 3-4mm L ureteral stone, mild [...] 07/11/2015 9:40 PM EDT Report rec'd from [place] in PACU. Pt transferred to unit and [...] the past, who presents in transfer from [facility] with a 3-4 mm mid left ureteral [...] which prompted her to present to the [facility] ED early this morning. There, labs were [...] Procedure Date: 08/18/2006 ??? Created by interface [id number] Procedure Date: 01/27/2007 ??? Created by interface [...] >4.0CM, TRUNK performed by TIRSO CHAUDHARI at [facility] MAIN OR ??? Pro colonoscopy, diagnostic 02/29/2012 COLONOSCOPY, DIAGNOSTIC performed by RAJAT KUO at [facility] ENDOSCOPY ??? Pro total hip arthroplasty 07/22/2012 @TOTAL HIP ARTHROPLASTY, ANTERIOR APPROACH performed by NICK ERVIN at [facility] MAIN OR Social History History Social [...] 159 Cultures: Blood and urine cultures at [facility] and [facility] pending Imaging: CT abd/pelvis 07/11/2015: 3-4 mm [...] a 69 y.o. female who presents to [facility] with infected obstructing L renal stone. History [...] HPI 69-year-old female presents in transfer from [facility] with left-sided nephrolithiasis and transient hypotension with [...] She is not a diabetic. Presented to [facility] CT scan of the abdomen was performed [...] EDT Office of Care Management (OCM) / Bilingual Case Manager(CM)/ Initial Assessment Discussed patient with Provider Team and in multidisciplinary discharge-planning rounds. Reviewed record and interviewed patient. Introduced/reviewed CM role and services accepted. REASON for HOSPITALIZATION: Ms. Gaming is a 69 yo WF with a PMH of nephrolithiasis transferred to [facility] with a 3-4mm L ureteral stone, mild hydronephrosis, positive UA, and questionable urosepsisI. IVF, IV Zosyn q8, flomax, oxycodone, flagyl/lac-hydrin bid topical, nexium, celexa, bowel meds, Vit D3,I&O, PMH See H&P PREVIOUS FUNCTIONAL STATUS: Independent CURRENT FUNCTIONAL STATUS:Bedrest, OON chair/ambulate w staff SOCIAL / FAMILY SUPPORTS:, 69 year old female residing in [place], [place] and lists Deidra Renée and Willy Gaming as her contacts . ADVANCE DIRECTIVES: On file. Deidra is the primary and sole agent. HEALTH /PRESCRIPTION COVERAGE:Medicare A/B, [employer] with prescription coverage with co-pays. CURRENT HOME/COMMUNITY SERVICES/EQUIPMENT: DME:None Home Health Agency:None Other:None RECORDING STUDIO SET UP WORKER REFERRAL: To be determined. PRIMARY CARE PHYSICIAN: MARILUZ WATTS MD (General) [phone] [place] [address] POTENTIAL DISCHARGE NEEDS: ?VNA PATIENT/FAMILY EDUCATION NEEDS: [...] Operative Note Patient Name: Diamond Gaming : [id number] MR#: [id number] Case Date: 07/11/2015 Surgeon: Surgeon(s) and Role: [...] condition. Jennifer Suresh MD Urology PGY-2 Pager: [phone] Associated attestation - Stephen Chauhan III, MD - 07/14/2015 1:29 PM EDT Attestation: Case Date: 07/11/2015 I was present and I participated during the entire procedure (does not need to include opening and closing). Stephen Chauhan III, MD 07/14/2015 * Brief Op Note - Jennifer Suresh MD - 07/11/2015 6:31 PM EDT Brief Operative Note Patient Name: Diamond Gaming : [id number] MR#: [id number] Case Date: 07/11/2015 Surgeon: Surgeon(s) and Role: [...] 1:59 PM EDT Arrived via EMS from [facility] due to Lt obstructed renal calculi, chills [...] at [facility] [address] [place] [address] Charu Martin MD [facility] DR [address] [place] [address] 11/16/2024 1:00 PM EST Office [place] [phone] Paula Harris PA [facility] [place] [address] 01/26/2025 9:50 AM EDT Appointment Mammography/[place] [address] Joan Deutsch APRN [facility] [place] [address] 01/26/2025 10:30 AM EDT Office [place] [phone] Joan Deutsch CNC MACHINE PROGRAMMER [facility] [place] [address] Pending Results Name Type Priority Associated Diagnoses Date /Time FILM LIBRARY-FLUORO OR [id number] ONL Imaging Routine 07/11/2015 7:1 8 PM EDT Scheduled Orders Name Type Priority Associated Diagnoses Orde r Schedule FILM LIBRARY-FLUORO OR [id number] ONL Imaging Routine Once PRN (f or Radiant use) for 1 Occurrences starting 07/11/2015 until 07/11/2015 documented as of this encounter Procedures Procedure Name Priority Date/Time Associated Diagnosis Comments IMPLANTABLE DEVICES SCAN 015 12:00 AM EDT LANDSCAPE ARTIST SCAN 07/14/2015 12:00 AM EDT HEMOGRAM Routine 07/13/2015 2:15 AM EDT DIFFERENTIAL, AUTOMATED Routine 07/13/20 15 2:15 AM EDT CBC (WITH DIFF) Routine [...] SCAN EXT O RDR/RSLT * SCAN DOC: LANDSCAPE ARTIST (07/14/2015 12:00 AM EDT) Anatomical Region Laterality [...] MD HEMATOLOGY ORDERA BLES Performing Organization Address City/State/[facility] Co de Phone Number CERRIGO MAYERIUM [...] Stephen Chauhan III, MD HEMATOLOGY ORDERA BLES [facility] M[facility] * Basic Metabolic Panel (non-fasting) (07/13/2015 2:15 AM EDT) [facility] Signature Glucose 100 65 - 199 mg/dL CERNER MILLENNIUM Comment:Diabetes: >=200 mg/d L plus symptoms Blood Urea Nitrogen 15 8 - 18 mg/dL CERNER MILLENNIUM Creatinine 0.83 0.70 - 1.20 mg/dL CERNER MILLENNIUM Comment: Please note that the pediatric reference intervals supplied above were not validated at [facility]. Results from pediatric patients should be interpreted [...] the following links into your internet browser. [email or web address].CIBDO/DHnkdep [email or web address].CIBDO/[facility]f Blood specimen (specimen) 07/13/2015 2:15 AM EDT 07/13/2015 2:43 AM EDT Narrative Resulting Agency Comment Spec In Lab Stephen Chauhan III, MD CHEMISTRY ORDERAB LES Performing Organization Address City/[facility]/ZIP Co de Phone Number VALERIE DYERENNIUM * (ABNORMAL) Differential, Automated (07/12/2015 3:03 AM [...] Chauhan III, MD HEMATOLOGY ORDERA BLES CERRIGO MAYERIUM * (ABNORMAL) Hemogram (07/12/2015 3:03 AM EDT) [...] Stephen Chauhan III, MD HEMATOLOGY ORDERA BLES [facility] MILL[facility] * (ABNORMAL) Basic Metabolic Panel (non-fasting) (07/12/2015 3:03 AM EDT) [facility] Glucose 120 65 - 199 mg/dL CERNER MILLENNIUM Comment:Diabetes: >=200 mg/d L plus symptoms Blood Urea Nitrogen 11 8 - 18 mg/dL CERNER MILLENNIUM Creatinine 0.55(L) 0.70 - 1.20 mg/dL CERNER MILLENNIUM Comment: Please note that the pediatric reference intervals supplied above were not validated at [facility]. Results from pediatric patients should be interpreted [...] the following links into your internet browser. http://[employer]/DHnkdep http://[employer]/DHMCnkf Blood specimen (specimen) 07/12/2015 3:03 AM EDT 07/12/2015 3:17 AM EDT Narrative Resulting Agency Comment Spec In Lab Stephen Chauhan III, MD CHEMISTRY ORDERAB LES Performing Organization Address City/[facility]/ZIP Co de Phone Number VALERIE TOPETE * L-Lactate2 Whole Blood (07/11/2015 3:33 PM EDT) Lactate WB 1.6 mmol/L VALERIE MAYERIUM Blood specimen (specimen) 07/11/2015 3:33 PM EDT 07/11/2015 3:33 PM EDT Emergency Dept CHEMISTRY ORDERABLE S VALERIE MAYERIUM * Red Hold (07/11/2015 3:00 PM EDT) Red Hold Sample in lab. VALERIE MAYERIUM Blood specimen (specimen) Venous Draw / Unknown 07/11/2015 3:00 PM EDT 07/11/2015 3:29 PM EDT Clarence Monet MD CHEMISTRY ORDERABLES VALERIE MAYERIUM * Osborne Hold (07/11/2015 3:00 PM EDT) Osborne Hold Sample in lab. VALERIE MAYERIUM Blood specimen (specimen) Venous Draw / Unknown 07/11/2015 3:00 PM EDT 07/11/2015 3:29 PM EDT Clarence Monet MD CHEMISTRY ORDERABLES Performing Organization Address [facility] de Phone Number VALERIE MAYERIUM * Gold Tube HOLD (07/11/2015 3:00 PM EDT) Gold Hold Sample in lab. VALERIE TOPETE Blood specimen (specimen) Venous Draw / Unknown 07/11/2015 3:00 PM EDT 07/11/2015 3:30 PM EDT Clarence Monet MD CHEMISTRY ORDERABLES Performing Organization Address [facility] de Phone Number VALERIE MAYERIUM * Blue Tube HOLD (07/11/2015 3:00 PM EDT) Blue Hold Sample in lab. VALERIE TOPETE Blood specimen (specimen) Venous Draw / Unknown 07/11/2015 3:00 PM EDT 07/11/2015 3:28 PM EDT Clarence Monet MD HEMATOLOGY ORDERABLE S Performing Organization Address [facility] de Phone Number VALERIE MAYERIUM * (ABNORMAL) Differential, Automated (07/11/2015 3:00 PM EDT) Neutrophil % 94.8 % CERNER MANISHAENNIUM Neutrophil Absolute 13.54(H) 1.50 - 6.30 x10(3)/mc [...] Platelet Volume 11.0 9.0 - 12.0 fL CERRIGO DYERENNIUM Blood specimen (specimen) 07/11/2015 3:00 PM EDT 07/11/2015 3:27 PM EDT Narrative Resulting Agency Comment Spec In Lab Clarence Monet MD HEMATOLOGY ORDERABLE S Performing Organization Address [facility] Co de Phone Number VALERIE TOPETE * (ABNORMAL) Creatinine (07/11/2015 3:00 PM EDT) Creatinine 0.57(L) 0.70 - 1.20 mg/dL [facility] Comment: Please note that the pediatric reference intervals supplied above were not validated at [facility]. Results from pediatric patients should be interpreted in conjunction to the patient's age, height and muscle mass. Est Glomerular Filtration Rate >60 >=60 CERRIGO DYERENNIUM Comment: This estimated GFR (eGFR) value was [...] the following links into your internet browser. http://[employer]/DHnkdep http://[employer]/DHMCnkf Blood specimen (specimen) 07/11/2015 3:00 PM EDT 07/11/2015 3:27 PM EDT Narrative Resulting Agency Comment Spec In Lab Clarence Monet MD CHEMISTRY ORDERABLES Performing Organization Address [facility] Co de Phone Number VALERIE TOPETE * BUN (07/11/2015 3:00 PM EDT) Blood Urea Nitrogen 15 8 - 18 mg/dL VALERIE DYERENNIUM Blood specimen (specimen) 07/11/2015 3:00 PM EDT 07/11/2015 3:27 PM EDT Narrative Resulting Agency Comment Spec In Lab Clarence Monet MD CHEMISTRY ORDERABLES Performing Organization Address [facility] Co de Phone Number VALERIE MAYERIUM * (ABNORMAL) Electrolytes panel (07/11/2015 3:00 PM [...] Monet MD CHEMISTRY ORDERABLES Performing Organization Address [facility] Co de Phone Number VALERIE DYERENNIUM * Urine culture Clean Catch Urine (07/11/2015 2:00 PM EDT) Urine Culture No growth (Less than 1,000 cfu/ml). CERNER MILLENNIUM Urine specimen obtained by clean catch procedure (specimen) 07/11/2015 2:00 PM EDT 07/11/2015 4:08 PM EDT Narrative Resulting Agency Comment Spec In Lab Clarence Monet MD MICROBIOLOGY - GENER AL ORDERABLES Performing Organization Address [facility] Co de Phone Number VALERIE MAYERIUM * (ABNORMAL) Urinalysis with reflex Culture (07/11/2015 [...] Urine Dipstick Clear Clear CERNER MILLENNIUM Specific [place] Urine Automated 1.016 1.002 - 1.030 CERNER [...] Lab Clarence Monet MD URINE ORDERABLES CERNER MANISHAENNIUM * Film Library- Storage Only CT Abdomen & Pelvis (07/11/2015 12:00 AM EDT) Narrative User, Generic Transmittal - 07/11/2015 3:39 PM EDT See PACS for result report. Stephen Chauhan III, MD IMHilario FILM LIBRARY ORDERABLES documented in this encounter Visit Diagnoses Not on filedocumented in this encounter Administered Medications Inactive Administered Medications - up to 3 most recent administrations Medication Order MAR Action Action Date Dose Rate Site iohexol (OMNIPAQUE) 300 mg/mL solution ONCE PRN, Starting on Sat07/11/15 at 1850, Until Sat07/11/15 at 2050, Intra-Operative (Intra-Procedure), Routine Given 07/11/2015 6:50 PM [...] - Reason: Contraindicated)1436 (Given - Provider: Kath Deluna, [place])2030 (Given - Provider: Deidra London RN) 0219 (Given - Provider: Deidra London RN)0900 (Not Given - Provider: Kath Deluna [...] Montgomery RN) 0939 (Given - Provider: Kath [place], [place])2030 (Given - Provider: Deidra London RN) 0934 (Given - Provider: Kath Deluna RN) esomeprazole (NexIUM) capsule 40 mg (CANCELED) 40 mg, Oral, DAILY, First dose on Sat07/12/15 at 0900, Until Discontinued, Routine 938 (Given - Provider: Kath Deluna RN) 0935 (Given - Provider: Kath Deluna RN) metroNIDAZOLE (METROGEL) 1 % gel (CANCELED) Topical (Top), DAILY, First dose on Sat07/12/15 at 0900, Until Discontinued 939 (Given - Provider: Kath Deluna RN) 0936 [...] Sat07/11/15 at 1656, Administer over 4 Hours, house calls nurse practitioner to OR, Indication for (Active or Suspected): [...] Kath Deluna RN)1855 (Given - Provider: Kath Del[place], [place]) 0219 (Given - Provider: Deidra London, [place])1138 (Given - Provider: Kath Deluna RN) predniSONE (DELTASONE) tablet 5 mg (CANCELED) 5 mg, Oral, DAILY, First dose on Sat07/12/15 at 1300, Until Discontinued, Routine 1437 (Given - Provider: Kath Deluna RN - Comment: pt had to wait for med from pharmacy) 0934 (Given - Provider: Kath Deluna, [place]) sodium chloride 0.9 % flush 5 mL (CANCELED) 5 mL, Intravenous, 2 TIMES DAILY, First dose on Sat07/11/15 at 2200, Until Discontinued, Routine 2200 (Not Given - Provider: Julieta Montgomery RN - Reason: See comment - Comment: IVF infusing through PIV) 0942 (Not Given - Provider: Kath Deluna RN - Reason: Contraindicated)2031 (Given - Provider: Deidra [place], [place]) 0939 (Given - Provider: Kath Deluna RN) [...] Routine 1858 (Given - Provider: Kath Deluna, RN) 1146 (Given - Provider: Kath [place], [place]) iohexol (OMNIPAQUE) 300 mg/mL solution (CANCELED) ONCE [...] Julieta Montgomery RN)0629 (Given - Provider: Julieta Montgomery, [place])1201 (Given - Provider: Kath Deluna, [place]) No [...] Routine documented in this encounter Care Teams Websphere Message Broker Developer Relationship Specialty Start Date End Date Mariluz Watts MD [address] [place] [address] [address] [place] [address] PCP - General 08/22/10 documented as of this encounter
--- OUTSIDE RECORDS SUMMARY | 2024-07-02 16:36 | XMS_ITS | Encounter Summary ---
[place] [address] Care Team Providers Care Bundle Breaker Name Role Phone Mariluz Watts MD Primary Care Provider [phone] Encounter Details Date Type Department Care Team (Late st Contact Info) Description 12/21/2014 2:53 PM EDT - 12/21/2014 11:59 PM EDT Hospital [place] [address] Social History Tobacco Use Types Packs/Day Years [...] Refills Start Date End Date LACTOBAC CMB #[id number] ORAL Take 1 tablet by mouth daily. [...] to rough spots on thighs. 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 02/02/14 400 g 10 02/01/2014 [...] 8:20 AM EST Office Visit Dermatology at [facility] [address] [place] [address] Charu Martin MD [facility] [place] [address] 11/16/2024 1:00 PM EST Office [place] [address] Paula Harris PA [facility] [place] [address] 01/26/2025 9:50 AM EDT Appointment Mammography/DXA at [facility] [place] [phone] Joan Deutsch APRN [facility] [place] [address] 01/26/2025 10:30 AM EDT Office [place] [phone] Joan Deutsch APRN [facility] [place] [address] documented as of this encounter Procedures Procedure [...] on filedocumented in this encounter Care Teams Bundle Breaker Relationship Specialty Start Date End Date Mariluz Watts MD [address] [place] [address] PCP - General 08/22/10 documented as of this encounter
--- OUTSIDE RECORDS SUMMARY | 2024-07-02 16:36 | XMS_ITS | Encounter Summary ---
Author Organization [facility] [place] [address] Care Team Providers Care Porter Sample Case Name Role Phone Mariluz Watts MD Primary Care Provider [phone] Encounter Details Date Type Department Care Team (Late st Contact Info) Description 03/01/2014 8:33 AM EDT - 03/01/2014 11:59 PM EDT Hospital Encounter XRay at [address] [place] [address] Left knee pain Social History Tobacco Use [...] Refills Start Date End Date LACTOBAC CMB #[id number] ORAL Take 1 tablet by mouth daily. [...] 8:20 AM EST Office Visit Dermatology at [facility] [address] [place] [address] Charu Martin MD [facility] [place] [address] 11/16/2024 1:00 PM EST Office [place] [address] Paula Harris, PA [facility] [place] [address] 01/26/2025 9:50 AM EDT Appointment Mammography/[place] [phone] Joan Deutsch APRN [facility] [place] [address] 01/26/2025 10:30 AM EDT Office [place] [phone] Joan Deutsch APRN [facility] [place] [address] documented as of this encounter Procedures Procedure Name Priority Date/Time Associated Diagnosis Comments XR JOINT TEAM ALIGNMENT AP LAT SCHUSS SKYLINE Routine 03/01/2014 8:56 AM EDT Left knee pain documented in this encounter Results * XR Joint Team alignment AP LAT Schuss [place] (03/01/2014 8:56 AM EDT) Anatomical Region Laterality [...] medial joint compartments and the right patellofemoralcompartment. Authorizing Provider Result Froy Ervin MD IMG DX ORDERABLES documented in this encounter Visit Diagnoses Diagnosis Left knee pain Pain in joint, lower leg documented in this encounter Care Teams Porter Sample Case Relationship Specialty Start Date End Date Mariluz Watts MD [address] [place] [address] [facility] [address] [place] [address] PCP - General 08/22/10 documented as of this encounter
--- OUTSIDE RECORDS SUMMARY | 2024-07-02 16:36 | XMS_ITS | Encounter Summary ---
Author Organization [facility] [place] [address] Care Team Providers Care Catalog Specialist Name Role Phone Mariluz Watts MD Primary Care Provider [phone] Encounter Details Date Type Department Care Team (Late st Contact Info) Description 12/21/2014 1:49 PM EDT - 12/21/2014 2:52 PM EDT Hospital Encounter XRay at [address] [place] [address] Osteopenia Social History Tobacco Use Types Packs/Day [...] Refills Start Date End Date LACTOBAC CMB #3-[id number] ORAL Take 1 tablet by mouth daily. [...] rough spots on thighs. 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 02/02/14 400 g 10 [...] 8:20 AM EST Office Visit Dermatology at [place] [address] [place] [address] Charu Martin MD [facility] [place] [address] 11/16/2024 1:00 PM EST Office Visit [place] [address] Paula Harris, PA [facility] [place] [address] 01/26/2025 9:50 AM EDT Appointment Mammography/[place] [phone] Joan Deutsch APRN [facility] [place] [address] 01/26/2025 10:30 AM EDT Office Visit [place] [phone] Joan Deutsch APRN [facility] [address] [place] [address] documented as of this encounter Procedures Procedure [...] or osteopenia and they are decreasing since 2012. The [...] BMD measurements and plots are available in JiaThis under the imaging tab. Paper copies will be sent to providers without JiaThis access. If you have received this report without the data sheet and do not have access to JiaThis, please contact Radiology Patient Safety Coordinator at [phone] Saturday thru Saturday 8am-4pm. Narrative 12/24/2014 9:38 [...] copies will be sent to providers without JiaThis access.If you have received this report without the data sheet and do not haveaccess to [place] [employer] (PIROX), please contact Radiology Patient Safety Coordinator at [phone] Saturday thruFriday 8am-4pm. Abrahan Merlos MD IMG DEXA ORDERABLES documented in this encounter Visit Diagnoses Diagnosis Osteopenia Disorder of bone and cartilage, unspecified documented in this encounter Care Teams Catalog Specialist Relationship Specialty Start Date End Date Mariluz Watts MD [address] [facility] [place] [facility] [address] [place] [address] PCP - General 08/22/10 documented as of this encounter
--- OUTSIDE RECORDS SUMMARY | 2024-07-02 16:36 | XMS_ITS | Encounter Summary ---
Author Organization [facility] [place] [address] Care Team Providers Care Rn Admit Name Role Phone Mariluz Watts MD Primary Care Provider [phone] Encounter Details Date Type Department Care Team (Late st Contact Info) Description 07/11/2015 - 07/11/2015 12:04 AM EDT Hospital Encounter Radiology Library at [facility] [place] [address] Abrahan Merlos MD [facility] HEMATOLOGY/[place] [address] Social History Tobacco Use Types Packs/Day Years [...] Refills Start Date End Date LACTOBAC CMB #1-[id number] ORAL Take 1 tablet by mouth daily. [...] to rough spots on thighs. 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 02/02/14 400 g [...] 8:20 AM EST Office Visit Dermatology at [facility] [address] [place] [address] Charu Martin MD [facility] [place] [address] 11/16/2024 1:00 PM EST Office Visit General Surgery at [place] [phone] Paula Harris PA [facility] [place] [address] 01/26/2025 9:50 AM EDT Appointment Mammography/[place] [address] Joan Deutsch APRN [facility] [place] [address] 01/26/2025 10:30 AM EDT Office [place] [phone] Joan Deutsch APRN [facility] [place] [address] documented as of this encounter Procedures Procedure [...] on filedocumented in this encounter Care Teams Rn Admit Relationship Specialty Start Date End Date Mariluz Watts MD [address] [place] [address] PCP - General 08/22/10 documented as of this encounter
--- OUTSIDE RECORDS SUMMARY | 2024-07-02 16:36 | XMS_ITS | Encounter Summary ---
[place] [address] Care Team Providers Care Survey Workers Supervisor Name Role Phone Mariluz Watts MD Primary Care Provider [phone] Reason for Visit * Reason Comments Follow Up Surgery Encounter Details Date Type Department Care Team (Late st Contact Info) Description 12/21/2014 1:45 PM EDT Follow-[place] [address] Bella Ly APRN [facility] [place] [address] History of breast cancer Discharge Disposition: Home [...] carcinoma with lobular features Tumor Grade: Intermediate Ewnrvn-Steiw-Wjafuzkbnm Score: 7 Tubular Differentiation: 3 Mitotic Rate: [...] sentinel nodes: 2 (Specimen A - Right [place] node) No. positive for carcinoma: 1 [...] 8:20 AM EST Office Visit Dermatology at [facility] [address] [place] [address] Charu Martin MD [facility] [address] [place] [address] 11/16/2024 1:00 PM EST Office Visit [place] [address] Paula Harris, PA [facility] [place] [address] 01/26/2025 9:50 AM EDT Appointment Mammography/DXA at [place] [phone] Joan Deutsch, [facility] [place] [address] 01/26/2025 10:30 AM EDT Office Visit [place] [phone] Joan Deutsch, [employer] [facility] [place] [address] documented as of this encounter Visit Diagnoses Diagnosis History of breast cancer Personal history of malignant neoplasm of breast documented in this encounter Care Teams Survey Workers Supervisor Relationship Specialty Start Date End Date Mariluz Watts MD [address] [facility] 1 [place] [address] PCP - General 08/22/10 documented as of this encounter
--- OUTSIDE RECORDS SUMMARY | 2024-07-02 16:36 | XMS_ITS | Encounter Summary ---
Author Organization [facility] [place] [address] Care Team Providers Care Educator Senior Clinical Name Role Phone Mariluz Watts MD Primary Care Provider [phone] Reason for Visit * Reason Comments Nephrolithiasis * Auth/Cert Specialty Diagnoses / Procedures Referred By John lyons Referred To Contact Diagnoses Pain Procedures CYSTO, STENT PLACEMENT Referral ID Status Reason Start Date Expiration Date Visits Re quested Visits Authorized [id number] 1 1 Encounter Details Date Type Department Care Team (Latest Contact Info) Description 07/11/2015 1:58 PM EDT - 07/13/2015 2:12 PM EDT Hospital Encounter 2 [place] [address] Stephen Chauhan III, MD [facility] [place] [address] Dk Polanco MD [facility] [place] [address] Pain; Kidney stone Discharge Disposition: Home Social [...] epi, into skin and subcutaneous tissues (CPT [id number]) left total hip arthroplasty, anterior Hueter approach with [place] table (CPT code 48308) Left hip intraoperative radiologic examination (CPT code 52797) Amicar infusion (5 g IV load, then 1g/hr x 3 hrs) Components Used: [place] Accolade stem, size 4, 127 degrees Trident PSLcup, 52 mm, solid 32 mm ID, alumina 32-4 mm alumina head ??? Hip pain ??? S/P Right ARSLAN 03/06/2005 ([facility]) SURGERY DATE: 03/06/2005 ARCADIO STEINER, NICK Angel Surgical Procedure Performed: Right total hip arthroplasty, cementless, ytlthhv-kg-elkndpe Components Used: [place] Trident 52 shell outer diameter Femoral head [...] the past, who presents in transfer from [facility] with a 3-4 mm mid left ureteral [...] which prompted her to present to the [facility] ED early this morning. There, labs were [...] Hospital Course: Ms. Gaming was admitted to [facility] 07/11/15. A stent was placed in her Left ureter the same day. She received IV antibiotics for 2 days and when her urine culture results from [facility] returned she was transitioned to a course [...] spots on thighs. 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 machine operator picker both scripts 02/02/14 Quantity: 400 g Refills: [...] pain medications The number for questions is [phone] before 5 PM weekdays and [phone] after 5 PM and weekends. Activity level: [...] stent removal in the office. Please call [phone] if you do not receive your appointment. [...] Discharge References/Attachments: Discharge References/Attachments KIDNEY STONE DIET (TURKMEN) Electronically Signed By: HARSHA VENTURA MD 07/13/2015 documented in this encounter Discharge Instructions * Patient Instructions* Harsha Ventura MD - 07/12/2015 12:13 PM EDT Call your doctor for: ??? fevers greater than 101 ??? severe nausea or vomiting ??? increasing pain not controlled by pain medications The number for questions is [phone] before 5 PM weekdays and [phone] after 5 PM and weekends. Activity level: [...] stent removal in the office. Please call [phone] if you do not receive your appointment. [...] through Care Everywhere. * KIDNEY STONE DIET (TURKMEN) documented in this encounter Medications at Time of Discharge Medication Sig Dispensed Refills Start Date End Date LACTOBAC CMB #3-[id number] ORAL Take 1 tablet by mouth daily. [...] spots on thighs. 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 machine operator picker both scripts 02/02/14 400 g 10 [...] team. No discharge needs identified atthis time. Import Export Manager remains available as needed for coordination [...] with a PMH of nephrolithiasis transferred to [facility] with a 3-4mm L ureteral stone, mild [...] the past, who presents in transfer from [facility] with a 3-4 mm mid left ureteral [...] which prompted her to present to the [facility] ED early this morning. There, labs were [...] Procedure Date: 08/18/2006 ??? Created by interface [id number] Procedure Date: 01/27/2007 ??? Created by interface [...] >4.0CM, TRUNK performed by TIRSO CHAUDHARI at [facility] MAIN OR ??? Pro colonoscopy, diagnostic 02/29/2012 COLONOSCOPY, DIAGNOSTIC performed by RAJAT KUO at [facility] ENDOSCOPY ??? Pro total hip arthroplasty 07/22/2012 @TOTAL HIP ARTHROPLASTY, ANTERIOR APPROACH performed by NICK ERVIN at [facility] MAIN OR Social History History Social History [...] 159 Cultures: Blood and urine cultures at [facility] and [facility] pending Imaging: CT abd/pelvis 07/11/2015: 3-4 mm [...] a 69 y.o. female who presents to [facility] with infected obstructing L renal stone. History [...] Smiley Jr., MD 08/02/15 0616 * Marily oLmeli RN - 07/11/2015 3:42 PM EDT Pt resting room, reports comfort * Devaughn Muhammad - 07/11/2015 3:37 PM EDT Chief Complaint Patient presents with ??? Nephrolithiasis HPI 69-year-old female presents in transfer from [facility] with left-sided nephrolithiasis and transient hypotension with [...] She is not a diabetic. Presented to [facility] CT scan of the abdomen was performed [...] further management. Devaughn Muhammad DO Resident 07/11/15 2323 * Marily Lomeli RN - 07/11/2015 3:31 [...] EDT Office of Care Management (OCM) / Import Export Manager(CM)/ Initial Assessment Discussed patient with Provider Team and in multidisciplinary discharge-planning rounds. Reviewed record and interviewed patient. Introduced/reviewed CM role and services accepted. REASON for HOSPITALIZATION: Ms. Gaming is a 69 yo WF with a PMH of nephrolithiasis transferred to [facility] with a 3-4mm L ureteral stone, mild hydronephrosis, positive UA, and questionable urosepsisI. IVF, IV Zosyn q8, flomax, oxycodone, flagyl/lac-hydrin bid topical, nexium, celexa, bowel meds, Vit D3,I&O, PMH See H&P PREVIOUS FUNCTIONAL STATUS: Independent CURRENT FUNCTIONAL STATUS:Bedrest, OON chair/ambulate w staff SOCIAL / FAMILY SUPPORTS:, 69 year old female residing in [place], [place] and lists Deidra Renée and Willy Gaming as her contacts . ADVANCE DIRECTIVES: On file. Deidra is the primary and sole agent. HEALTH /PRESCRIPTION COVERAGE:Medicare A/B, [employer] with prescription coverage with co-pays. CURRENT HOME/COMMUNITY SERVICES/EQUIPMENT: DME:None Home Health Agency:None Other:None EGG PROCESSOR REFERRAL: To be determined. PRIMARY CARE PHYSICIAN: MARILUZ WATTS MD (General) [phone] [facility] [place] [address] POTENTIAL DISCHARGE NEEDS: ?VNA PATIENT/FAMILY EDUCATION NEEDS: [...] Operative Note Patient Name: Diamond Gaming : [id number] MR#: [id number] Case Date: 07/11/2015 Surgeon: Surgeon(s) and Role: [...] condition. Jennifer Suresh MD Urology PGY-2 Pager: [phone] Associated attestation - Stephen Chauhan III, MD - 07/14/2015 1:29 PM EDT Attestation: Case Date: 07/11/2015 I was present and I participated during the entire procedure (does not need to include opening and closing). Stephen Chauhan III, MD 07/14/2015 * Brief Op Note - Jennifer Suresh MD - 07/11/2015 6:31 PM EDT Brief Operative Note Patient Name: Diamond Gaming : [id number] MR#: [id number] Case Date: 07/11/2015 Surgeon: Surgeon(s) and Role: [...] 1:59 PM EDT Arrived via EMS from [facility] due to Lt obstructed renal calculi, chills [...] 8:20 AM EST Office Visit Dermatology at [facility] [address] [place] [address] Charu Martin MD [facility] [place] [address] 11/16/2024 1:00 PM EST Office Visit General Surgery at [place] [phone] Paula Harris PA [facility] [place] [address] 01/26/2025 9:50 AM EDT Appointment Mammography/[place] [phone] Joan Deutsch APRN [facility] [place] [address] 01/26/2025 10:30 AM EDT Office [place] [phone] Joan Deutsch APRN [facility] [place] [place] [address] Pending Results Name Type Priority Associated Diagnoses Date /Time FILM LIBRARY-FLUORO OR [id number] ONL Imaging Routine 07/11/2015 7:1 8 PM EDT Scheduled Orders Name Type Priority Associated Diagnoses Orde r Schedule FILM LIBRARY-FLUORO OR [id number] ONL Imaging Routine Once PRN (f or Radiant use) for 1 Occurrences starting 07/11/2015 until 07/11/2015 documented as of this encounter Procedures Procedure Name Priority Date/Time Associated Diagnosis Comments IMPLANTABLE DEVICES SCAN 10/15/2 015 12:00 AM EDT JIRA ADMINISTRATOR SCAN 07/14/2015 12:00 AM EDT HEMOGRAM Routine 07/13/2015 2:15 AM EDT DIFFERENTIAL, AUTOMATED Routine 07/13/20 2:15 AM EDT CBC (WITH DIFF) Routine 07/13/2015 2:15 AM EDT BASIC METABOLIC PANEL Routine 07/13/2015 2:15 AM EDT HEMOGRAM Routine 07/12/2015 3:03 AM EDT DIFFERENTIAL, AUTOMATED Routine 07/12/20 3:03 AM EDT CBC (WITH DIFF) Routine [...] 3:00 PM EDT DIFFERENTIAL, AUTOMATED STAT 07/11/20 3:00 PM EDT GOLD TUBE HOLD STAT [...] SCAN EXT O RDR/RSLT * SCAN DOC: JIRA ADMINISTRATOR (07/14/2015 12:00 AM EDT) Anatomical Region Laterality [...] HEMATOLOGY ORDERA BLES CERNER MILLENNIUM * (ABNORMAL) Hemogram (07/13/2015 2:15 AM EDT) [...] Lab Stephen Chauhan III, MD HEMATOLOGY ORDERA [facility] * Basic Metabolic Panel (non-fasting) (07/13/2015 2:15 AM EDT) Glucose 100 65 - 199 mg/dL CERNER MILLENNIUM Comment:Diabetes: >=200 mg/d L plus symptoms Blood Urea Nitrogen 15 8 - 18 mg/dL CERNER MILLENNIUM Creatinine 0.83 0.70 - 1.20 mg/dL CERNER MILLENNIUM Comment: Please note that the pediatric reference intervals supplied above were not validated at [facility]. Results from pediatric patients should be interpreted [...] the following links into your internet browser. [email or web address] Blood specimen (specimen) 07/13/2015 2:15 AM EDT [...] HEMATOLOGY ORDERA BLES CERNER MILLENNIUM * (ABNORMAL) Hemogram (07/12/2015 3:03 AM EDT) [...] Lab Stephen Chauhan III, MD HEMATOLOGY ORDERA [facility] * (ABNORMAL) Basic Metabolic Panel (non-fasting) (07/12/2015 3:03 AM EDT) [facility] Glucose 120 65 - 199 mg/dL CERNER MILLENNIUM Comment:Diabetes: >=200 mg/d L plus symptoms Blood Urea Nitrogen 11 8 - 18 mg/dL CERNER MILLENNIUM Creatinine 0.55(L) 0.70 - 1.20 mg/dL CERNER MILLENNIUM Comment: Please note that the pediatric reference intervals supplied above were not validated at [facility]. Results from pediatric patients should be interpreted [...] the following links into your internet browser. [email or web address] Blood specimen (specimen) 07/12/2015 3:03 AM EDT 07/12/2015 3:17 AM EDT Narrative Resulting Agency Comment Spec In Lab Stephen Chauhan III, MD CHEMISTRY ORDERAB LES Performing Organization Address City/[facility] Co de Phone Number VALERIE TOPETE * L-Lactate2 Whole Blood (07/11/2015 3:33 PM EDT) Lactate WB 1.6 mmol/L VALERIE TOPETE Blood specimen (specimen) 07/11/2015 3:33 PM EDT 07/11/2015 3:33 PM EDT Emergency Dept CHEMISTRY ORDERABLE S VALERIE TOPETE * Red Hold (07/11/2015 3:00 PM EDT) Red Hold Sample in lab. VALERIE TOPETE Blood specimen (specimen) Venous Draw / Unknown 07/11/2015 3:00 PM EDT 07/11/2015 3:29 PM EDT Clarence Monet MD CHEMISTRY ORDERABLES Performing Organization Address [facility] de Phone Number VALERIE MAYERIUM * Osborne Hold (07/11/2015 3:00 PM EDT) Osborne Hold Sample in lab. VALERIE MAYERIUM Blood specimen (specimen) Venous Draw / Unknown 07/11/2015 3:00 PM EDT 07/11/2015 3:29 PM EDT Clarence Monet MD CHEMISTRY ORDERABLES Performing Organization Address [facility] Phone Number VALERIE MAYERIUM * Gold Tube HOLD (07/11/2015 3:00 PM EDT) Gold Hold Sample in lab. VALERIE MAYERIUM Blood specimen (specimen) Venous Draw / Unknown 07/11/2015 3:00 PM EDT 07/11/2015 3:30 PM EDT Clarence Monet MD CHEMISTRY ORDERABLES Performing Organization Address [facility] Phone Number VALERIE MAYERIUM * Blue Tube HOLD (07/11/2015 3:00 PM EDT) Blue Hold Sample in lab. VALERIE MAYERIUM Blood specimen (specimen) Venous Draw / Unknown 07/11/2015 3:00 PM EDT 07/11/2015 3:28 PM EDT Clarence Monet MD HEMATOLOGY ORDERABLE S Performing Organization Address [facility] Co de Phone Number VALERIE MAYERIUM * (ABNORMAL) Differential, Automated (07/11/2015 3:00 PM EDT) Neutrophil % 94.8 % CERRIGO DYERENNIUM Neutrophil Absolute 13.54(H) 1.50 - 6.30 x10(3)/mc [...] MD HEMATOLOGY ORDERABLE S Performing Organization Address [facility] Co de Phone Number VALERIE MAYERIUM * (ABNORMAL) Creatinine (07/11/2015 3:00 PM EDT) Creatinine 0.57(L) 0.70 - 1.20 mg/dL CERNER MILLENNIUM Comment: Please note that the pediatric reference intervals supplied above were not validated at [facility]. Results from pediatric patients should be interpreted in conjunction to the patient's age, height and muscle mass. Est Glomerular Filtration Rate >60 >=60 CERNER [...] the following links into your internet browser. [email or web address] Blood specimen (specimen) 07/11/2015 3:00 PM EDT 07/11/2015 3:27 PM EDT Narrative Resulting Agency Comment Spec In Lab Clarence Monet MD CHEMISTRY ORDERABLES Performing Organization Address City/[facility] Co de Phone Number VALERIE TOPETE * BUN (07/11/2015 3:00 PM EDT) Blood Urea Nitrogen 15 8 - 18 mg/dL CERNER MILLENNIUM Blood specimen (specimen) 07/11/2015 3:00 PM EDT 07/11/2015 3:27 PM EDT Narrative Resulting Agency Comment Spec In Lab Clarence Monet MD CHEMISTRY ORDERABLES Performing Organization Address [facility] Co de Phone Number CERNER MILLENNIUM * (ABNORMAL) Electrolytes panel (07/11/2015 3:00 PM EDT) Pathologist [facility] Sodium 140 135 - 145 mmol/L CERNER [...] Monet MD CHEMISTRY ORDERABLES Performing Organization Address [facility] Co de Phone Number CERRIGO MILLENNIUM * Urine culture Clean Catch Urine (07/11/2015 2:00 PM EDT) Pathologist [facility] Urine Culture No growth (Less than 1,000 cfu/ml). CERNER MILLENNIUM Urine specimen obtained by clean catch procedure (specimen) 07/11/2015 2:00 PM EDT 07/11/2015 4:08 PM EDT Narrative Resulting Agency Comment Spec In Lab Clarence Monet MD MICROBIOLOGY - GENER AL ORDERABLES Performing Organization Address City/[facility]/ZIP Co de Phone Number CERNER MILLENNIUM * (ABNORMAL) Urinalysis with reflex Culture [...] Urine Dipstick Clear Clear CERNER MILLENNIUM Specific [place] Urine Automated 1.016 1.002 - 1.030 CERNER [...] [place] RN) 0936 (Given - Provider: Kath Deluna RN) cholecalciferol (Vitamin D3) tablet 1,000 Units (CANCELED) 1,000 Units, Oral, DAILY, First dose on Sat07/12/15 at 0900, Until Discontinued, Routine 37 (Given - Provider: Kath Deluna RN) 0935 (Given - Provider: Kath Deluna RN) citalopram (CeleXA) tablet 20 mg (CANCELED) 20 mg, Oral, DAILY, First dose on Sat07/12/15 at 0900, Until Discontinued, Routine 39 (Given - Provider: Kath Deluna RN) 0935 (Given - Provider: Kath Deluna, [place]) docusate sodium (COLACE) capsule 100 mg 100 mg, Oral, 2 TIMES DAILY, First dose on Sat07/11/15 at 2200, Until Discontinued, Routine 2208 (Given - Provider: Julieta Montgomery RN) 09 (Given - Provider: Kath Deluna RN)2030 (Given [...] Deluna RN) 0936 (Given - Provider: Kath [place], [place]) oxybutynin (DITROPAN) tablet 5 mg 5 mg, Oral, 2 TIMES DAILY, First dose on Sat07/12/15 at 2100, Until Discontinued, Routine 2030 (Given - Provider: Deidra London RN) 0935 (Given - Provider: Kath Deluna RN) piperacillin-tazobactam (ZOSYN) 3.375 g in dextrose 5% 50 mL (COMPLETED) 3.375 g, Intravenous, ONCE, 1 dose, On Sat07/11/15 at 1656, Administer over 4 Hours, call box wirer to OR, Indication for (Active or Suspected): Urinary Tract/Pyelonephritis 180 (Given - Provider: Fredo Vasquez CRNA) piperacillin-tazobactam (ZOSYN) 3.375 g in dextrose 5% 50 mL (CANCELED) 3.375 g, Intravenous, EVERY 8 HOURS, First dose on Sat07/12/15 at 0300, Until Discontinued, Administer over 4 Hours, Indication for (Active or Suspected): Urinary Tract/Pyelonephritis 0304 (Given - Provider: Julieta [place] RN)1146 (Given - Provider: Kath Deluna, [place])1855 (Given - Provider: Kath [place], [place]) 0219 [...] PIV) 0942 (Not Given - Provider: Kath Deluna, RN - Reason: Contraindicated)2031 (Given - Provider: Deidra [place], [place]) 0939 (Given - Provider: Kath [place], [place]) [...] Routine documented in this encounter Care Teams Educator Senior Clinical Relationship Specialty Start Date End Date Mariluz Watts MD [address] [place] [address] PCP - General 08/22/10 documented as of this encounter
--- OUTSIDE RECORDS SUMMARY | 2024-07-02 16:37 | XMS_ITS | Encounter Summary ---
[place] [address] Care Team Providers Care Office Rn Name Role Phone Mariluz Watts MD Primary Care Provider [phone] Reason for Visit * Reason Onset Date Comments Other 07/10/2013 Medication issue Encounter Details Date Type Department Care Team (Late st Contact Info) Description 07/10/2013 Tele[place] [address] Kimberly Ackerman RN Other (Medication issue) Social [...] AM EST Office Visit Dermatology at [address] [address] Charu Martin MD [facility] [place] [address] 11/16/2024 1:00 PM EST Office [place] [address] Paula Harris PA [facility] GENERAL SURGERY [place], [place] [address] 01/26/2025 9:50 AM EDT Appointment Mammography/[place] [address] Joan Deutsch APRN [facility] [place] [address] 01/26/2025 10:30 AM EDT Office [place] [address] Joan Deutsch, TIN FLOPPER [facility] [place] [address] documented as of this encounter Visit Diagnoses Not on filedocumented in this encounter Care Teams Office Rn Relationship Specialty Start Date End Date Mariluz Watts MD [address] [place] [address] PCP - General 08/22/10 documented as of this encounter
--- OUTSIDE RECORDS SUMMARY | 2024-07-02 16:37 | XMS_ITS | Encounter Summary ---
[place] [address] Care Team Providers Care Superintendent Local Name Role Phone Mariluz Watts MD Primary Care Provider [phone] Reason for Visit * Reason Onset Date Comments Other 09/09/2013 Prednisone Weani ng Encounter Details Date Type Department Care Team (Late st Contact Info) Description 09/09/2013 Telephone [place] [address] Kimberly Ackerman RN Other (Prednisone Weaning) Social [...] for now and can be reached at [phone] Aviles needs to speak with her. documented in this encounter Plan of Treatment Upcoming Encounters Date Type Department Care Team (Late st Contact Info) Description 08/05/2024 8:20 AM EST Office Visit Dermatology at [address] [address] Charu Martin MD [facility] [place] [address] 11/16/2024 1:00 PM EST Office Visit [place] [address] Paula Harris PA [facility] [place] [address] 01/26/2025 9:50 AM EDT Appointment Mammography/[place] [address] Joan Deutsch APRN [facility] [place] [address] 01/26/2025 10:30 AM EDT Office Visit [place] [address] Joan Deutsch, GE [facility] [place] [address] documented as of this encounter Visit Diagnoses Not on filedocumented in this encounter Care Teams Superintendent Local Relationship Specialty Start Date End Date Mariluz Watts MD [address] [place] [address] [address] [place] [address] PCP - General 08/22/10 documented as of this encounter
--- OUTSIDE RECORDS SUMMARY | 2024-07-02 16:37 | XMS_ITS | Encounter Summary ---
Author Organization [facility] [place] [address] Care Team Providers Care Customer Quality Engineer Name Role Phone Mariluz Watts MD Primary Care Provider [phone] Encounter Details Date Type Department Care Team (Latest Contact Info) Description 12/14/2013 7:51 AM EDT - 12/14/2013 11:59 PM EDT Hospital Encounter XRay at [address] [place] [address] H/O bilateral hip replacements Social History Tobacco [...] Refills Start Date End Date LACTOBAC CMB #[id number] ORAL Take 1 tablet by mouth daily. [...] 8:20 AM EST Office Visit Dermatology at [address] [address] Charu Martin MD [facility] [place] [address] 11/16/2024 1:00 PM EST Office [place] [address] Paula Harris PA [facility] [place] [address] 01/26/2025 9:50 AM EDT Appointment Mammography/[place] [address] Joan Deutsch APRN [facility] [place] [address] 01/26/2025 10:30 AM EDT Office [place] [address] Joan Deutsch APRN [facility] [place] [address] documented as of this encounter Procedures Procedure [...] means documented in this encounter Care Teams Customer Quality Engineer Relationship Specialty Start Date End Date Mariluz Watts MD [address] [place] [address] PCP - General 08/22/10 documented as of this encounter
--- OUTSIDE RECORDS SUMMARY | 2024-07-02 16:37 | XMS_ITS | Encounter Summary ---
[place] [address] Care Team Providers Care Evaporator Operator Molasses Name Role Phone Mariluz Watts MD Primary Care Provider [phone] Reason for Visit * Reason Comments Follow Up Surgery Encounter Details Date Type Department Care Team (Late st Contact Info) Description 12/22/2013 1:45 PM EDT Follow-[place] [address] Bella Ly APRN [facility] [place] [address] History of breast cancer (Primary Dx) Discharge [...] carcinoma with lobular features Tumor Grade: Intermediate Rqyknq-Dduuc-Tmqnjdzota Score: 7 Tubular Differentiation: 3 Mitotic Rate: [...] sentinel nodes: 2 (Specimen A - Right Franklin node) No. positive for carcinoma: 1 (H&E) No. with IHC (+) cells only: 0 (cells not seen by H&E, see Note*) No. negative for carcinoma: 1 (both H&E and IHC For positive nodes: Largest kristi deposit 0.2 cm Extranodal extension Absent Estrogen/Progestin receptors: Performed on blocks C2 and C11 ER immunoreactivity: Positive (see Diagnostic hanna*) TX immunoreactivity: Positive (see Diagnostic hanna*) HER2/shonda expression [...] 8:20 AM EST Office Visit Dermatology at [address] [place] [address] Charu Martin MD [facility] [place] [address] 11/16/2024 1:00 PM EST Office [place] [address] [phone] Paula Harris PA [facility] [place] [address] 01/26/2025 9:50 AM EDT Appointment Mammography/DXA at [place] [phone] Joan Deutsch, CLIENT MANAGER [facility] [place] [address] 01/26/2025 10:30 AM EDT Office Visit General Surgery at [place] [phone] Joan Deutsch, [facility] [address] documented as of this encounter Visit Diagnoses Diagnosis History of breast cancer- Primary Personal history of malignant neoplasm of breast documented in this encounter Care Teams Evaporator Operator Molasses Relationship Specialty Start Date End Date Mariluz Watts MD [address] [place] [address] PCP - General 08/22/10 documented as of this encounter
--- OUTSIDE RECORDS SUMMARY | 2024-07-02 16:37 | XMS_ITS | Encounter Summary ---
Author Organization [facility] [place] [address] Care Team Providers Care Logistics Account Manager Name Role Phone Mariluz Watts MD Primary Care Provider [phone] Encounter Details Date Type Department Care Team (Late st Contact Info) Description 05/25/2013 Orders [place] [address] Scar Aviles II, [facility] [place] [address] Social History Tobacco Use Types Packs/Day Years [...] 8:20 AM EST Office Visit Dermatology at [facility] [address] [place] [address] [facility] DR CONG [place] [address] 11/16/2024 1:00 PM EST Office Visit General Surgery at [place] [phone] [facility] [place] [address] 01/26/2025 9:50 AM EDT Appointment Mammography/[place] [address] Joan Deutsch, [facility] [place] [address] 01/26/2025 10:30 AM EDT Office Visit General Surgery at [place] [phone] Joan Deutsch, [facility] [place] [address] documented as of this encounter Visit Diagnoses Not on filedocumented in this encounter Care Teams Logistics Account Manager Relationship Specialty Start Date End Date Mariluz Watts MD [address] [place] [address] [address] [facility] [place] [address] PCP - General 08/22/10 documented as of this encounter
--- OUTSIDE RECORDS SUMMARY | 2024-07-02 16:37 | XMS_ITS | Encounter Summary ---
[place] [address] Care Team Providers Care Industrial Health And Safety Professor Name Role Phone Mariluz Watts MD Primary Care Provider [phone] Encounter Details Date Type Department Care Team (Late st Contact Info) Description 12/22/2013 12:04 PM EDT - 12/22/2013 11:59 PM EDT Hospital En[place] [address] Social History Tobacco Use Types Packs/Day Years [...] Refills Start Date End Date LACTOBAC CMB #[id number] ORAL Take 1 tablet by mouth daily. [...] AM EST Office Visit Dermatology at [address] [address] Charu Martin MD [facility] [place] [address] 11/16/2024 1:00 PM EST Office [place] [address] Paula Harris, PA [facility] [place] [place] [address] 01/26/2025 9:50 AM EDT Appointment Mammography/[place] [address] Joan Deutsch APRN [facility] [place] [address] 01/26/2025 10:30 AM EDT Office [place] [address] Joan Deutsch APRN [facility] [place] [address] documented as of this encounter Procedures Procedure [...] on filedocumented in this encounter Care Teams Industrial Health And Safety Professor Relationship Specialty Start Date End Date Mariluz Watts MD [address] [facility] 1 [place] [address] PCP - General 08/22/10 documented as of this encounter
--- OUTSIDE RECORDS SUMMARY | 2024-07-02 16:37 | XMS_ITS | Encounter Summary ---
Author Organization [facility] [place] [address] Care Team Providers Care Tours Hostess Name Role Phone Mariluz Watts MD Primary Care Provider [phone] Reason for Visit * Reason Comments Follow-up Encounter Details Date Type Department Care Team (Late st Contact Info) Description 06/12/2013 10:00 AM EDT Follow-Up Hematology [place] [address] Abrahan Merlos MD [facility] DR HEMATOLOGY/[place] [address] Breast cancer, stage 2 (Primary Dx); Osteopenia [...] visit with Coral Ly. Abrahan Merlos MD vat skimmer in Hematology-Oncology documented in this encounter Plan of Treatment Upcoming Encounters Date Type Department Care Team (Late st Contact Info) Description 08/05/2024 8:20 AM EST Office Visit Dermatology at [address] [place] [address] Charu Martin MD [facility] DR CONG [place] [address] 11/16/2024 1:00 PM EST Office Visit [place] [address] Paula Harris PA [facility] [place] [address] 01/26/2025 9:50 AM EDT Appointment Mammography/[place] [address] Joan Deutsch APRN [facility] [place] [address] 01/26/2025 10:30 AM EDT Office Visit [place] [address] Joan Deutsch APRN [facility] [place] [address] documented as of this encounter Results * [...] Lab Abrahan Merlos MD CHEMISTRY ORDERABLES [facility] * VIT D Total Evaluation (12/22/2013 11:59 [...] MD CHEMISTRY ORDERABLES Performing Organization Address City/State/[facility] Co de Phone Number [facility] documented in this encounter Visit Diagnoses Diagnosis Breast cancer, stage 2- Primary Malignant neoplasm of breast (female), unspecified site Osteopenia Disorder of bone and cartilage, unspecified documented in this encounter Care Teams Tours Hostess Relationship Specialty Start Date End Date Mariluz Watts MD [address] [place] [address] PCP - General 08/22/10 documented as of this encounter
--- OUTSIDE RECORDS SUMMARY | 2024-07-02 16:37 | XMS_ITS | Encounter Summary ---
Author Organization [facility] [place] [address] Care Team Providers Care Food Demonstrator Name Role Phone Mariluz Watts MD Primary Care Provider [phone] Encounter Details Date Type Department Care Team (Late st Contact Info) Description 11/25/2013 10:30 AM EST [place] [address] Scar Aviles II, [facility] [place] [address] Aromatase inhibitor-associated arthralgia (Primary Dx); OA (osteoarthritis) [...] 8:20 AM EST Office Visit Dermatology at [facility] [address] [place] [address] Charu Martin MD [facility] DR [place] [address] 11/16/2024 1:00 PM EST Office Visit General Surgery at [place] [phone] Paula Harris PA [facility] [place] [address] 01/26/2025 9:50 AM EDT Appointment Mammography/DXA at [place] [phone] Joan Deutsch, GE [facility] [place] [address] 01/26/2025 10:30 AM EDT Office Visit General Surgery at [place] [phone] Joan Deutsch, GE [facility] [place] [address] documented as of this encounter Visit Diagnoses Diagnosis Aromatase inhibitor-associated arthralgia- Primary Pain in joint, site unspecified OA (osteoarthritis) Osteoarthrosis, unspecified whether generalized or localized, unspecified site documented in this encounter Care Teams Food Demonstrator Relationship Specialty Start Date End Date Mariluz Watts MD [address] [place] [address] PCP - General 08/22/10 documented as of this encounter
--- OUTSIDE RECORDS SUMMARY | 2024-07-02 16:37 | XMS_ITS | Encounter Summary ---
Author Organization [facility] [place] [address] Care Team Providers Care Board Certified Behavioral Analyst Name Role Phone Mariluz Watts MD Primary Care Provider [phone] Encounter Details Date Type Department Care Team (Late st Contact Info) Description 07/02/2013 Telephone Dermatology at [facility] [address] [place] [address] Santo Gutierrez III, MD [facility] [place] [address] Social History Tobacco Use Types Packs/Day Years [...] 8:20 AM EST Office Visit Dermatology at [facility] [address] [place] [address] Charu Mratin MD [facility] [place] [address] 11/16/2024 1:00 PM EST Office Visit [place] [address] Paula Harris PA [facility] [place] [address] 01/26/2025 9:50 AM EDT Appointment Mammography/[place] [address] Joan Deutsch APRN [facility] [place] [address] 01/26/2025 10:30 AM EDT Office Visit [place] [phone] Joan Deutsch APRN [facility] [place] [address] documented as of this encounter Visit Diagnoses Not on filedocumented in this encounter Care Teams Board Certified Behavioral Analyst Relationship Specialty Start Date End Date Mariluz Watts MD [address] [facility] [address] [facility] 1 [place] [address] PCP - General 08/22/10 documented as of this encounter
--- OUTSIDE RECORDS SUMMARY | 2024-07-02 16:37 | XMS_ITS | Encounter Summary ---
Author Organization [facility] [place] [address] Care Team Providers Care Jet Ski Mechanic Name Role Phone Mariluz Watts MD Primary Care Provider [phone] Reason for Visit * Reason Comments Aftercare Of Tjr bilateral arslan 2011 Encounter Details Date Type Department Care Team (Latest Contact Info) Description 07/13/2013 2:50 PM EDT Office [place] [address] Nick Ruiz MD [address] [place] [address] Charity Norris APRN [facility] [place] [address] H/O bilateral hip replacements (Primary Dx); Psoas [...] this encounter Progress Notes * Charity Norris, MORNING SHOW [employer] PRODUCER - 07/13/2013 3:32 PM EDT Chief Complaint: Both hip ARSLAN. Annual appointment. Pertinent Surgical History: Date: Jul 22- Surgeon: Nick Ruiz MD Pre-operative diagnosis: Left hip osteoarthritis Body mass index is 35.35 kg/(m^2). Surgical Procedure Performed: Injection left hip with 10 cc marcaine 0.25% with epi, into skin and subcutaneous tissues (CPT [id number]) left total hip arthroplasty, anterior Hueter approach with Zelienople table (CPT code 84514) Left hip intraoperative radiologic examination (CPT code 62750) Amicar infusion (5 g IV load, then 1g/hr x 3 hrs) Components Used: [place] Accolade stem, size 4, 127 degrees Trident PSLcup, 52 mm, solid 32 mm ID, alumina 32-4 mm alumina head Bearing surface: ceramic on ceramic Complications: High EBL Type 1 calcar fracture SURGERY DATE: 03/06/2005 Surgeon: NICK RUIZ MD ([id number]) Date: March 06, 2005 Surgeon: Nick Ruiz MD Pre-operative diagnosis: Right hip osteoarthritis Surgical Procedure Performed: Right total hip arthroplasty, cementless, egbrdpa-wk-[id number] Components Used: Nicole Trident 52 shell outer [...] the psoas tendon/bursa. Now followed by a theater technician for multiple arthralgia. Began plaquenil therapy with some improvement in joint pain and systemic complaints. However, She did develop a rash from the plaquenil therefore had to stop this DMARD. She is following with her Director [employer] in regards to follow for treatment options. 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 No other reported injuries or infections . Baseline numbness and tingling in feet. Having foot surgery by Dr. Kong for a tendon problems. + dupuytren's contractures in hands and is anxious about crutch use. Has not investigated guatemalan crutches or a scooter. No other complaints [...] for the lifetime of the joint replacement. Wealso discussed maintaining good foot care and giving prompt attention to any source of infection throughout the body including foot ulcers and urinary tract infections. documented in this encounter Plan of Treatment Upcoming Encounters Date Type Department Care Team (Late st Contact Info) Description 08/05/2024 8:20 AM EST Office Visit Dermatology at [address] [address] Charu Martin MD [facility] [place] [address] 11/16/2024 1:00 PM EST Office [place] [address] Paula Harris PA [facility] [place] [address] 01/26/2025 9:50 AM EDT Appointment Mammography/[place] [address] Joan Deutsch APRN [facility] [place] [address] 01/26/2025 10:30 AM EDT Office [place] [address] Joan Deutsch APRN [facility] [place] [address] documented as of this encounter Visit Diagnoses Diagnosis H/O bilateral hip replacements- Primary Hip joint replacement by other means Psoas tendinitis Enthesopathy of hip region Physical deconditioning Debility, unspecified documented in this encounter Care Teams Jet Ski Mechanic Relationship Specialty Start Date End Date Mariluz Watts MD [address] [place] [address] PCP - General 08/22/10 documented as of this encounter
--- OUTSIDE RECORDS SUMMARY | 2024-07-02 16:37 | XMS_ITS | Encounter Summary ---
[place] [address] Care Team Providers Care Ore Puncher Name Role Phone Mariluz Watts MD Primary Care Provider Reason for Visit * Reason Onset Date Comments Rash 07/02/2013 Encounter Details Date Type Department Care Team (Late st Contact Info) Description 07/02/2013 [place] [address] Kimberly Ackerman RN Rash Social History Tobacco [...] 8:20 AM EST Office Visit Dermatology at [facility] [address] [place] [address] Charu Martin MD [facility] DR [place] [address] 11/16/2024 1:00 PM EST Office [place] [address] Paula Harris PA [facility] [place] [address] 01/26/2025 9:50 AM EDT Appointment Mammography/[place] [address] Joan Deutsch, [facility] [place] [address] 01/26/2025 10:30 AM EDT Office [place] [address] Joan Deutsch, [facility] [place] [address] documented as of this encounter Visit Diagnoses Not on filedocumented in this encounter Care Teams Ore Puncher Relationship Specialty Start Date End Date Mariluz Watts MD [address] [place] [address] PCP - General 08/22/10 documented as of this encounter
--- OUTSIDE RECORDS SUMMARY | 2024-07-02 16:37 | XMS_ITS | Encounter Summary ---
Author Organization [facility] [place] [address] Care Team Providers Care Topper Press Operator Automatic Name Role Phone Mariluz Watts MD Primary Care Provider [phone] Encounter Details Date Type Department Care Team (Late st Contact Info) Description 05/04/2013 Orders [place] [address] Morgan Kong MD [facility] [place] [address] Right foot pain (Primary Dx) Social History [...] 8:20 AM EST Office Visit Dermatology at [facility] [address] [place] [address] Charu Martin MD [facility] [place] [address] 11/16/2024 1:00 PM EST Office [place] [address] Paula Harris PA [facility] [place] [address] 01/26/2025 9:50 AM EDT Appointment Mammography/[place] [address] Joan Deutsch [facility] [place] [address] 01/26/2025 10:30 AM EDT Office [place] [address] Joan Deutsch [employer] C[employer] [facility] [place] [address] documented as of this encounter Results * [...] limb documented in this encounter Care Teams Topper Press Operator Automatic Relationship Specialty Start Date End Date Mariluz Watts MD [address] [place] [address] PCP - General 08/22/10 documented as of this encounter
--- OUTSIDE RECORDS SUMMARY | 2024-07-02 16:37 | XMS_ITS | Encounter Summary ---
Author Organization [facility] [place] [address] Care Team Providers Care Power Equipment Mechanics Instructor Name Role Phone Mariluz Watts MD Primary Care Provider [phone] Reason for Visit * Reason Comments Osteoarthritis Encounter Details Date Type Department Care Team (Late st Contact Info) Description 08/19/2013 10:15 AM EST Follow-[place] [address] Scar Aviles II, [facility] [place] [address] Aromatase inhibitor-associated arthralgia (Primary Dx) Discharge Disposition: [...] and as her mother was the primary rounder and backer for herfather, she is now the primary rounder and backer for both parents. She had been planning [...] 8:20 AM EST Office Visit Dermatology at [facility] [address] [place] [address] Charu Martin MD [facility] [place] [address] 11/16/2024 1:00 PM EST Office Visit General Surgery at [place] [phone] Paula Harris PA [facility] [place] [address] 01/26/2025 9:50 AM EDT Appointment Mammography/DXA at [place] [phone] Joan Deutsch APRN [facility] [place] [address] 01/26/2025 10:30 AM EDT Office Visit General Surgery at [place] [phone] Joan Deutsch STORAGE FACILITY HOUSEKEEPER [facility] [place] [address] documented as of this encounter Visit Diagnoses Diagnosis Aromatase inhibitor-associated arthralgia- Primary Pain in joint, site unspecified documented in this encounter Care Teams Power Equipment Mechanics Instructor Relationship Specialty Start Date End Date Mariluz Watts MD [address] [place] [address] [address] [place] [address] PCP - General 08/22/10 documented as of this encounter
--- OUTSIDE RECORDS SUMMARY | 2024-07-02 16:37 | XMS_ITS | Encounter Summary ---
Author Organization [facility] [place] [address] Care Team Providers Care Shuttle Buggy Operator Name Role Phone Mariluz Watts MD Primary Care Provider [phone] Reason for Referral * Physical Therapy (Routine) - Complete - Patient Will Schedule External Appt Specialty Diagnoses / Procedures Referred By John lyons Referred To Contact Physical Therapy Diagnoses S/P total hip arthroplasty Francheska Buchanan PA [facility] [place] [address] Referral ID Status Reason Start Date Expiration Date Visits Requested Visits Authorized [id number] Complete - Patient Will Schedule External Appt Evaluate and Treat 12/14/2013 06/12/2014 12 12 Reason for Visit * Reason Comments Follow Up Surgery s/p left ant arslan dos 07/22/12 s/p b/l arslan Encounter Details Date Type Department Care Team (Late st Contact Info) Description 12/14/2013 8:30 AM EDT Office [place] [address] CLIN[address], DR CONV S/P Left Anterior ARSLAN- [...] Patient Name: Diamond Gaming : 1945 MR#: [id number] Date of Visit: 12/14/2013 Date: March 06, 2005 Surgeon: Kian Ervin MD Surgical Procedure Performed: Right total hip arthroplasty, cementless, [id number] Components Used: Nicole Trident 52 shell outer diameter Femoral head 32-4 mm Nicole Accolade Femoral stem size 4, 127 deg Date: 07/22/2012 Surgeon: Kian Ervin MD Surgical Procedure Performed: Injection left hip with 10 cc marcaine 0.25% with epi, into skin and subcutaneous tissues (CPT [id number]) left total hip arthroplasty, anterior Hueter approach with [place] table (CPT code 66901) Left hip intraoperative radiologic examination (CPT code 99240) Amicar infusion (5 g IV load, then 1g/hr x 3 hrs) Components Used: [place] Accolade stem, size 4, 127 degrees Trident [...] use. Lives alone with her dog, an Danish pratt. 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 Physical Exam: Filed Vitals: 12/14/13 0844 BP: [...] 8:20 AM EST Office Visit Dermatology at [address] [place] [address] Charu Martin MD [facility] [place] [address] 11/16/2024 1:00 PM EST Office [place] [address] Paula Harris PA [facility] [place] [address] 01/26/2025 9:50 AM EDT Appointment Mammography/[place] [address] Joan Deutsch APRN [facility] [place] [address] 01/26/2025 10:30 AM EDT Office [place] [address] Joan Deutsch APRN [facility] [place] [address] Scheduled Referrals Name Type Priority Associated Diagnoses [...] means documented in this encounter Care Teams Shuttle Buggy Operator Relationship Specialty Start Date End Date Mariluz Watts MD [address] [facility] 1 [place] [address] PCP - General 08/22/10 documented as of this encounter
--- OUTSIDE RECORDS SUMMARY | 2024-07-02 16:37 | XMS_ITS | Encounter Summary ---
Author Organization [facility] [place] [address] Care Team Providers Care Glue Sprayer Name Role Phone Mariluz Watts MD Primary Care Provider Reason for Visit * Reason Comments Right Foot Pain ? scheduling surgery Encounter Details Date Type Department Care Team (Late st Contact Info) Description 08/12/2013 1:15 PM EST Office [place] [address] Morgan Kong MD [facility] [place] [address] Arthritis of right foot (Primary Dx) Discharge [...] seen one of the rheumatologists here at [facility] and has been on Plaquenil and is [...] Dermatology at [facility] [address] [place] [address] Charu Martin MD [facility] [place] [address] 11/16/2024 1:00 PM EST Office [place] [address] Paula Harris PA [facility] [place] [address] 01/26/2025 9:50 AM EDT Appointment Mammography/DXA at [place] [phone] Joan Deutsch INVISIBLE BRACES ORTHODONTIST [facility] [place] [address] 01/26/2025 10:30 AM EDT Office Visit General Surgery at [place] [phone] Joan Deutsch INVISIBLE BRACES ORTHODONTIST [facility] [place] [address] documented as of this encounter Visit Diagnoses Diagnosis Arthritis of right foot- Primary Unspecified arthropathy, ankle and foot documented in this encounter Care Teams Glue Sprayer Relationship Specialty Start Date End Date Mariluz Watts MD [address] [facility] [place] [address] PCP - General 08/22/10 documented as of this encounter
--- OUTSIDE RECORDS SUMMARY | 2024-07-02 16:37 | XMS_ITS | Encounter Summary ---
Author Organization [facility] [place] [address] Care Team Providers Care Information Services Consultant Name Role Phone Mariluz Watts MD Primary Care Provider Encounter Details Date Type Department Care Team (Late st Contact Info) Description 05/04/2013 Orders [place] [address] Debbi Hansen, RN Breast cancer (Primary Dx) [...] 8:20 AM EST Office Visit Dermatology at [facility] [address] [place] [address] Charu Martin MD [facility] [address] [place] [address] 11/16/2024 1:00 PM EST Office Visit General Surgery at [place] [address] Paula Harris PA [facility] [place] [address] 01/26/2025 9:50 AM EDT Appointment Mammography/DXA at [place] [address] Joan Deutsch, [facility] [place] [address] 01/26/2025 10:30 AM EDT Office Visit General Surgery at [place] [address] Joan Deutsch, [facility] [place] [address] documented as of this encounter Visit Diagnoses Diagnosis Breast cancer- Primary Malignant neoplasm of breast (female), unspecified site documented in this encounter Care Teams Information Services Consultant Relationship Specialty Start Date End Date Mariluz Watts MD [address] [place] [address] PCP - General 08/22/10 documented as of this encounter
--- OUTSIDE RECORDS SUMMARY | 2024-07-02 16:37 | XMS_ITS | Encounter Summary ---
Author Organization [facility] [place] [address] Care Team Providers Care Bilingual Sales Consultant Name Role Phone Mariluz Watts MD Primary Care Provider [phone] Reason for Visit * Reason Comments Medication Refill Encounter Details Date Type Department Care Team (Late st Contact Info) Description 07/01/2013 Refill Dermatology at [facility] [address] [place] [address] Chayo Willingham MD [facility] [address] [place] [place] [address] Social History Tobacco Use Types Packs/Day Years [...] 8:20 AM EST Office Visit Dermatology at [address] [address] Charu Martin MD [facility] DR [place] [place] [address] 11/16/2024 1:00 PM EST Office [place] [phone] Paula Harris PA [facility] [place] [address] 01/26/2025 9:50 AM EDT Appointment Mammography/[place] [address] Joan Deutsch APRN [facility] [place] [address] 01/26/2025 10:30 AM EDT Office [place] [address] Joan Deutsch, GE [facility] [place] [address] documented as of this encounter Visit Diagnoses Not on filedocumented in this encounter Care Teams Bilingual Sales Consultant Relationship Specialty Start Date End Date Mariluz Watts MD [address] [place] [address] [address] [place] [address] PCP - General 08/22/10 documented as of this encounter
--- OUTSIDE RECORDS SUMMARY | 2024-07-02 16:37 | XMS_ITS | Encounter Summary ---
Author Organization [facility] [place] [address] Care Team Providers Care Finish Off Operator Name Role Phone Mariluz Watts MD Primary Care Provider [phone] Encounter Details Date Type Department Care Team (Latest Contact Info) Description 05/22/2013 8:55 AM EDT - 05/22/2013 11:59 PM EDT Hospital Encounter XRay at [address] [place] [address] Right foot pain Social History Tobacco Use [...] Refills Start Date End Date LACTOBAC CMB #[id number] ORAL Take 1 tablet by mouth daily. [...] 45 g 3 12/31/2012 02/01/2014 lactobac cmb #[id number] (PROBIOTIC & ACIDOPHILUS) 300-250 million cell-mg Cap [...] Dermatology at [facility] [address] [place] [address] Charu Martin MD [facility] [address] 11/16/2024 1:00 PM EST Office Visit [place] [address] Paula Harris PA [facility] [place] [address] 01/26/2025 9:50 AM EDT Appointment Mammography/[place] [address] Joan Deutsch APRN [facility] [place] [address] 01/26/2025 10:30 AM EDT Office Visit [place] [address] Joan Deutsch CLINICAL RECRUITER [facility] [address] documented as of this encounter Procedures Procedure [...] limb documented in this encounter Care Teams Finish Off Operator Relationship Specialty Start Date End Date Mariluz Watts MD [address] [place] [address] [address] [place] [address] PCP - General 08/22/10 documented as of this encounter
--- OUTSIDE RECORDS SUMMARY | 2024-07-02 16:37 | XMS_ITS | Encounter Summary ---
[place] [address] Care Team Providers Care Front Worker Name Role Phone Mariluz Watts MD Primary Care Provider [phone] Reason for Visit * Reason Onset Date Comments Other 08/19/2013 Encounter Details Date Type Department Care Team (Late st Contact Info) Description 08/19/2013 Telephone [place] [address] Gemini Felton RN Other Social History Tobacco [...] RN - 08/19/2013 3:28 PM EST Called [facility] outpatient pharmacy to confirm that they received a script for anastrozole 1mg dispense#90 with 3 refills in May. Called Diamond to inform her that she has refills and should call [facility] Outpatient pharmacy. * Telephone Encounter - Gemini Felton RN - 08/19/2013 3:20 PM EST Message copied by GEMINI FELTON on SatAug 19, 2013 3:20 PM ------ Message from: HATTIE RODRIGUEZ Created: SatAug 19, 2013 8:18 AM Regarding: anastrozole refill Anastrozole, 1mg, 90 day, to [facility] and [facility] will mail to her home. [phone]. Called pharmacy script was filled today. Called Diamond to inform her that on 06/12/13 her script was generated for one year. Dispense #90 with 3 refills. [facility] Outpatient pharmacy filled a refill today. documented in this encounter Plan of Treatment Upcoming Encounters Date Type Department Care Team (Late st Contact Info) Description 08/05/2024 8:20 AM EST Office Visit Dermatology at [address] [place] [address] Charu Martin MD [facility] [place] [address] 11/16/2024 1:00 PM EST Office [place] [address] Paula Harris PA [facility] [place] [address] 01/26/2025 9:50 AM EDT Appointment Mammography/[place] [address] Joan Deutsch APRN [facility] [place] [address] 01/26/2025 10:30 AM EDT Office [place] [address] Joan Deutsch, SKILLED LABOR [facility] [place] [address] documented as of this encounter Visit Diagnoses Not on filedocumented in this encounter Care Teams Front Worker Relationship Specialty Start Date End Date Mariluz Watts MD [address] [place] [address] PCP - General 08/22/10 documented as of this encounter
--- OUTSIDE RECORDS SUMMARY | 2024-07-02 16:37 | XMS_ITS | Encounter Summary ---
Author Organization [facility] [place] [address] Care Team Providers Care Tour Driver Name Role Phone Mariluz Watts MD Primary Care Provider [phone] Reason for Visit * Reason Comments Joint Pain Encounter Details Date Type Department Care Team (Latest Contact Info) Description 05/20/2013 10:45 AM EDT Office [place] [address] Scar Aviles II, [facility] [place] [address] Osteoarthritis (Primary Dx); Aromatase inhibitor-associated arthralgia Discharge [...] AM EST Office Visit Dermatology at [address] [place] [address] Charu Martin MD [facility] [address] [place] [address] 11/16/2024 1:00 PM EST Office Visit [place] [address] Paula Harris PA [facility] [place] [address] 01/26/2025 9:50 AM EDT Appointment Mammography/[place] [address] Joan Deutsch APRN [facility] [place] [address] 01/26/2025 10:30 AM EDT Office Visit [place] [address] Joan Deutsch APRN [facility] [place] [address] documented as of this encounter Visit Diagnoses Diagnosis Osteoarthritis- Primary Osteoarthrosis, unspecified whether generalized or localized, unspecified site Aromatase inhibitor-associated arthralgia Pain in joint, site unspecified documented in this encounter Care Teams Tour Driver Relationship Specialty Start Date End Date Mariluz Watts MD [address] [place] [address] PCP - General 08/22/10 documented as of this encounter
--- OUTSIDE RECORDS SUMMARY | 2024-07-02 16:37 | XMS_ITS | Encounter Summary ---
Author Organization [facility] [place] [address] Care Team Providers Care Horse Doctor Name Role Phone Mariluz Watts MD Primary Care Provider [phone] Reason for Referral * Physical Therapy (Routine) - Complete - Patient Will Schedule External Appt Specialty Diagnoses / Procedures Referred By John lyons Referred To Contact Physical Therapy Diagnoses Status post hip replacement Linsey Martinez PA [facility] [place] [address] Referral ID Status Reason Start Date Expiration Date Visits Requested Visits Authorized [id number] Complete - Patient Will Schedule External Appt Evaluate and Treat 04/21/2013 10/18/2013 12 12 * Consultation (Routine) - Closed Specialty Diagnoses / Procedures Referred By John lyons Referred To Contact Rheumatology Diagnoses Status post hip replacement Linsey Martinez PA [facility] [place] [address] [facility] Rheumatology [address] [place] [phone] Referral ID Status Reason Start Date Expiration Date V isits Requested Visits Authorized [id number] Closed Consult, Test & Treat 04/21/2013 10/18/2013 1 1 Reason for Visit * Reason Comments Bilateral Hip Pain SP L ARSLAN DOS 2, R ARSLAN DOS 2004 Encounter Details Date Type Department Care Team (Late st Contact Info) Description 04/21/2013 11:00 AM EDT Office Visit [place] [address] Linsey Martinez PA [facility] [place] [address] Status post hip replacement (Primary Dx); S/P [...] 8:20 AM EST Office Visit Dermatology at [facility] [address] [place] [address] Charu Martin MD [facility] [place] [address] 11/16/2024 1:00 PM EST Office Visit General Surgery at [place] [phone] Paula Harris PA [facility] [place] [address] 01/26/2025 9:50 AM EDT Appointment Mammography/DXA at [place] [phone] Joan Deutsch, [facility] [place] [address] 01/26/2025 10:30 AM EDT Office Visit [place] [address] Joan Deutsch, [facility] [place] [address] Scheduled Referrals Name Type Priority Associated Diagnoses [...] means documented in this encounter Care Teams Horse Doctor Relationship Specialty Start Date End Date Mariluz Watts MD [address] [place] [address] [address] [place] [address] PCP - General 08/22/10 documented as of this encounter
--- OUTSIDE RECORDS SUMMARY | 2024-07-02 16:37 | XMS_ITS | Encounter Summary ---
Author Organization [facility] [place] [address] Care Team Providers Care Superintendent Operating Name Role Phone Mariluz Watts MD Primary Care Provider [phone] Reason for Visit * Reason Comments Follow-up Encounter Details Date Type Department Care Team (Late st Contact Info) Description 12/22/2013 1:00 PM EDT Follow-Up [place] [address] Abrahan Merlos MD [facility] DR HEMATOLOGY/[place] [address] Osteopenia; Breast cancer, stage 2 Discharge Disposition: [...] who started her on plaquenil and on [id number] mg daily. Diamond currently has pain in [...] in followup insix months. Abrahan Merlos MD english as a second language instructor in Hematology-Oncology * Kamala Mello RN - [...] Visit Dermatology at [facility] [address] [place] [address] Charu Martin MD [facility] [address] [place] [address] 11/16/2024 1:00 PM EST Office [place] [address] Paula Harris PA [facility] [place] [address] 01/26/2025 9:50 AM EDT Appointment Mammography/[place] [address] Joan Deutsch, [facility] [place] [address] 01/26/2025 10:30 AM EDT Office [place] [address] Joan Deutsch, [facility] [place] [address] documented as of this encounter Procedures Procedure [...] Abrahan Merlos MD CHEMISTRY ORDERABLES VALERIE TOPETE * VIT D Total Evaluation (12/22/2013 11:59 AM EDT) Vitamin D Total 25 OH 42 30 - 100 ng/mL VALERIE TOPETE Comment: Deficient <10 ng/mL Insufficient 10 to [...] site documented in this encounter Care Teams Superintendent Operating Relationship Specialty Start Date End Date Mariluz Watts MD [address] [place] [address] [address] [facility] [place] [address] PCP - General 08/22/10 documented as of this encounter
--- OUTSIDE RECORDS SUMMARY | 2024-07-02 16:37 | XMS_ITS | Encounter Summary ---
Author Organization [facility] [place] [address] Care Team Providers Care Employment Security Officer Name Role Phone Mariluz Watts MD Primary Care Provider Encounter Details Date Type Department Care Team (Late st Contact Info) Description 02/17/2014 10:30 AM EDT [place] [address] [facility] [address] OA (osteoarthritis) (Primary Dx); Aromatase inhibitor use [...] 02/17/2014 10:35 AM EDT Body Mass Index 80285.6 02/17/2014 10:35 AM EDT documented in this [...] AM EST Office Visit Dermatology at [address] [address] Charu Martin MD [facility] [place] [address] 11/16/2024 1:00 PM EST Office [place] [address] Paula Harris PA [facility] GENERAL SURGERY [place], [place] [address] 01/26/2025 9:50 AM EDT Appointment Mammography/[place] [address] Joan Deutsch, HEALTH AND FITNESS INSTRUCTOR [facility] [place] [address] 01/26/2025 10:30 AM EDT Office [place] [address] Joan Deutsch, [facility] [place] [address] documented as of this encounter Visit Diagnoses Diagnosis OA (osteoarthritis)- Primary Osteoarthrosis, unspecified whether generalized or localized, unspecified site Aromatase inhibitor use Use of aromatase inhibitors documented in this encounter Care Teams Employment Security Officer Relationship Specialty Start Date End Date Mariluz Watts MD [address] [place] [address] PCP - General 08/22/10 documented as of this encounter
--- OUTSIDE RECORDS SUMMARY | 2024-07-02 16:37 | XMS_ITS | Encounter Summary ---
Author Organization [facility] [place] [address] Care Team Providers Care C D Stripper Name Role Phone Mariluz Watts MD Primary Care Provider [phone] Encounter Details Date Type Department Care Team (Late st Contact Info) Description 07/02/2013 Telephone Dermatology at [facility] [address] [place] [address] Santo Gutierrez III, MD [facility] [place] [address] Social History Tobacco Use Types Packs/Day Years [...] 8:20 AM EST Office Visit Dermatology at [place] [address] [place] [address] Charu Martin MD [facility] [place] [address] 11/16/2024 1:00 PM EST Office [place] [address] Paula Harris PA [facility] [place] [address] 01/26/2025 9:50 AM EDT Appointment Mammography/[place] [address] Joan Deutsch APRN [facility] [place] [address] 01/26/2025 10:30 AM EDT Office [place] [address] Jona Deutsch APRN [facility] [place] [address] documented as of this encounter Visit Diagnoses Not on filedocumented in this encounter Care Teams C D Stripper Relationship Specialty Start Date End Date Mariluz Watts MD [address] [place] [address] [address] [place] [address] PCP - General 08/22/10 documented as of this encounter
--- OUTSIDE RECORDS SUMMARY | 2024-07-02 16:37 | XMS_ITS | Encounter Summary ---
Author Organization [facility] [place] [address] Care Team Providers Care Scarfer Operator Name Role Phone Mariluz Watts MD Primary Care Provider [phone] Encounter Details Date Type Department Care Team (Latest Contact Info) Description 12/22/2013 11:52 AM EDT - 12/22/2013 11:59 PM EDT Hospital Encounter Hematology [place] [address] CLINIC, DR KATARINA Merlos, Abrahan Chavarria MD [facility] HEMATOLOGY/[place] [address] Discharge Disposition: Home Social History Tobacco Use [...] Refills Start Date End Date LACTOBAC CMB #4-[id number] ORAL Take 1 tablet by mouth daily. [...] AM EST Office Visit Dermatology at [facility] [address] [place] [address] Charu Martin MD [facility] DR CONG ROE-DERMATOLOGY [place], [place] [address] 11/16/2024 1:00 PM EST Office [place] [address] Paula Harris PA [facility] GENERAL SURGERY [place], [place] [address] 01/26/2025 9:50 AM EDT Appointment Mammography/[place] [address] Joan Deutsch, [facility] [place] [address] 01/26/2025 10:30 AM EDT Office [place] [address] Joan Deutsch, [facility] [place] [address] documented as of this encounter Visit Diagnoses Not on filedocumented in this encounter Care Teams Scarfer Operator Relationship Specialty Start Date End Date Mariluz Watts MD [address] [place] [address] PCP - General 08/22/10 documented as of this encounter
--- OUTSIDE RECORDS SUMMARY | 2024-07-02 16:37 | XMS_ITS | Encounter Summary ---
[place] [address] Care Team Providers Care Pit Worker Power Shovel Name Role Phone Mariluz Watts MD Primary Care Provider [phone] Encounter Details Date Type Department Care Team (Late st Contact Info) Description 06/03/2013 12:54 PM EDT - 06/03/2013 11:59 PM EDT [place] [address] CLINIC, Mariluz Hidalgo MD [address] [place] [address] [address] [facility] 1 [place], [place] [address] Discharge Disposition: Home Social History Tobacco Use [...] Refills Start Date End Date LACTOBAC CMB #2-[id number] ORAL Take 1 tablet by mouth daily. [...] 45 g 3 12/31/2012 02/01/2014 lactobac cmb #4-[id number] (PROBIOTIC & ACIDOPHILUS) 300-250 million cell-mg Cap [...] 8:20 AM EST Office Visit Dermatology at [place] [address] [place] [address] Charu Martin MD [facility] DR [place] [address] 11/16/2024 1:00 PM EST Office [place] [address] Paula Harris PA [facility] [place] [address] 01/26/2025 9:50 AM EDT Appointment Mammography/[place] [address] Joan Deutsch APRN [facility] [place] [address] 01/26/2025 10:30 AM EDT Office [place] [address] Joan Deutsch APRN [facility] [place] [address] documented as of this encounter Procedures Procedure [...] in the context of the clinical situation. (Reference-Maria Mvik et al, Spine 2001) Findings: (prevalence in [...] in the context of the clinical situation. (Reference-Jarvik et al, [id number]) Findings: (prevalence in patients without low back pain), Diskdegeneration (decreased T2 signal, height loss, bulge) (91%), Disk T2-signal loss(83%), Disk height loss (56%), Disk bulge (64%), Disk protrusion (32%), Annular fissure (38%). Film and interpretation reviewed by the attending Mariluz Watts MD IMG MRI ORDERABLES documented in this encounter Visit Diagnoses Not on filedocumented in this encounter Care Teams Pit Worker Power Shovel Relationship Specialty Start Date End Date Mariluz Watts MD [address] [facility] 1 [place] [address] PCP - General 08/22/10 documented as of this encounter
--- OUTSIDE RECORDS SUMMARY | 2024-07-02 16:37 | XMS_ITS | Encounter Summary ---
[place] [address] Care Team Providers Care Senior Windows Engineer Name Role Phone Mariluz Watts MD Primary Care Provider [phone] Reason for Visit * Reason Onset Date Comments Other 08/17/2013 Pt called fuentes black for follow appt with Dr. Ervin or an associate provider to discuss her left hip pain. S/P bilat ARSLAN by IMT. Encounter Details Date Type Department Care Team (Late st Contact Info) Description 08/17/2013 [place] [address] Bertha Zhu, RN Other (Pt called looking [...] AM EST Office Visit Dermatology at [address] [address] Charu Martin MD [facility] [place] [address] 11/16/2024 1:00 PM EST Office [place] [address] Paula Harris PA [facility] [place] [place] [address] 01/26/2025 9:50 AM EDT Appointment Mammography/[place] [address] Joan Deutsch APRN [facility] [place] [place] [address] 01/26/2025 10:30 AM EDT Office [place] [address] Joan Deutsch APRN [facility] [place] [address] documented as of this encounter Visit Diagnoses Not on filedocumented in this encounter Care Teams Senior Windows Engineer Relationship Specialty Start Date End Date Mariluz Watts MD [address] [facility] [address] [place] [address] PCP - General 08/22/10 documented as of this encounter
--- OUTSIDE RECORDS SUMMARY | 2024-07-02 16:37 | XMS_ITS | Encounter Summary ---
Author Organization [facility] [place] [address] Care Team Providers Care Site Damage Prevention Technician Name Role Phone Mariluz Watts MD Primary Care Provider [phone] Reason for Visit * Reason Comments Right Foot Pain pain X5 years Encounter Details Date Type Department Care Team (Late st Contact Info) Description 05/22/2013 9:45 AM EDT Office [place] [address] Morgan Kong MD [facility] DR [place] [address] Ventura Richards PA [facility] [place] [address] Arthritis of right foot (Primary Dx) Discharge [...] NAME: Diamond Gaming AGE: 67 y.o. MR#: [id number] DATE OF VISIT: 05/22/2013 DATE OF INJURY/ONSET: [...] sural, deep peroneal, superficial peroneal nerve distributions. [place] Reece Monofilament 5.07 RADIOLOGICAL STUDIES: I independent [...] AM EST Office Visit Dermatology at [address] [address] Charu Martin MD [facility] DR [place]G [place] [address] 11/16/2024 1:00 PM EST Office [place] [address] Paula Harris PA [facility] [place] [address] 01/26/2025 9:50 AM EDT Appointment Mammography/[place] [address] Joan Deutsch APRN [facility] [place] [address] 01/26/2025 10:30 AM EDT Office [place] [address] Joan Deutsch, GE [facility] [place] [address] documented as of this encounter Visit Diagnoses Diagnosis Arthritis of right foot- Primary Unspecified arthropathy, ankle and foot documented in this encounter Care Teams Site Damage Prevention Technician Relationship Specialty Start Date End Date Mariluz Watts MD [address] [place] [address] PCP - General 08/22/10 documented as of this encounter
--- OUTSIDE RECORDS SUMMARY | 2024-07-02 16:37 | XMS_ITS | Encounter Summary ---
[place] [address] Care Team Providers Care Assembler Plastic Boat Name Role Phone Mariluz Watts MD Primary Care Provider [phone] Reason for Visit * Reason Onset Date Comments Other 12/25/2013 Encounter Details Date Type Department Care Team (Late st Contact Info) Description 12/25/2013 [place] [address] Jesusita Valdes RN Other Social History Tobacco [...] AM EST Office Visit Dermatology at [address] [place] [address] Charu Martin MD [facility] [place] [address] 11/16/2024 1:00 PM EST Office [place] [address] Paula Harris PA [facility] [place] [address] 01/26/2025 9:50 AM EDT Appointment Mammography/[place] [address] Joan Deutsch, [facility] [place] [address] 01/26/2025 10:30 AM EDT Office [place] [address] Joan Deutsch, [facility] [place] [address] documented as of this encounter Visit Diagnoses Not on filedocumented in this encounter Care Teams Assembler Plastic Boat Relationship Specialty Start Date End Date Mariluz Watts MD [address] [place] [address] PCP - General 08/22/10 documented as of this encounter
--- OUTSIDE RECORDS SUMMARY | 2024-07-02 16:37 | XMS_ITS | Encounter Summary ---
Author Organization [facility] [place] [address] Care Team Providers Care Internal Medicine Hospitalist Name Role Phone Mariluz Watts MD Primary Care Provider [phone] Encounter Details Date Type Department Care Team (Latest Contact Info) Description 04/21/2013 10:35 AM EDT - 04/21/2013 11:59 PM EDT Hospital Encounter XRay at [address] [place] [address] Status post hip replacement Social History Tobacco [...] Refills Start Date End Date LACTOBAC CMB #3-[id number] ORAL Take 1 tablet by mouth daily. [...] topically daily. 45 g 3 12/31/2012 02/01/2014 [facility] cmb #4-dhb-kzuhacavtj (PROBIOTIC & ACIDOPHILUS) 300-250 million cell-mg Cap [...] 8:20 AM EST Office Visit Dermatology at [facility] [address] [place] [address] Charu Martin MD [facility] [place] [address] 11/16/2024 1:00 PM EST Office Visit General Surgery at [place] [phone] Paula Harris PA [facility] [place] [address] 01/26/2025 9:50 AM EDT Appointment Mammography/DXA at [place] [phone] Joan Deutsch [facility] [place] [address] 01/26/2025 10:30 AM EDT Office [place] [address] Joan Deutsch [facility] [place] [address] documented as of this encounter Procedures Procedure [...] means documented in this encounter Care Teams Internal Medicine Hospitalist Relationship Specialty Start Date End Date Mariluz Watts MD [address] [place] [address] PCP - General 08/22/10 documented as of this encounter
--- OUTSIDE RECORDS SUMMARY | 2024-07-02 16:37 | XMS_ITS | Encounter Summary ---
Author Organization [facility] [place] [address] Care Team Providers Care Heel Gummer Name Role Phone Mariluz Watts MD Primary Care Provider [phone] Encounter Details Date Type Department Care Team (Latest Contact Info) Description 07/13/2013 2:16 PM EDT - 07/13/2013 11:59 PM EDT Hospital Encounter XRay at [address] [place] [address] Status post hip replacement Social History Tobacco [...] Refills Start Date End Date LACTOBAC CMB #1-MHK-[id number] ORAL Take 1 tablet by mouth daily. [...] 45 g 3 12/31/2012 02/01/2014 lactobac cmb #7-[id number]-[id number] (PROBIOTIC & ACIDOPHILUS) 300-250 million cell-mg Cap [...] AM EST Office Visit Dermatology at [facility] [address] [place] [address] Charu Martin MD [facility] [place] [address] 11/16/2024 1:00 PM EST Office Visit General Surgery at [address] Paula Harris PA [facility] [place] [address] 01/26/2025 9:50 AM EDT Appointment Mammography/DXA at [place] [phone] Joan Deutsch APRN [facility] [place] [address] 01/26/2025 10:30 AM EDT Office Visit General Surgery at [place] [phone] Joan Deutsch APRN [facility] [place] [address] documented as of this encounter Procedures Procedure [...] means documented in this encounter Care Teams Heel Gummer Relationship Specialty Start Date End Date Mariluz Watts MD [address] [place] [address] PCP - General 08/22/10 documented as of this encounter
--- OUTSIDE RECORDS SUMMARY | 2024-07-02 16:37 | XMS_ITS | Encounter Summary ---
[place] [address] Care Team Providers Care Delivery Stock Clerk Name Role Phone Mariluz Watts MD Primary Care Provider [phone] Encounter Details Date Type Department Care Team (Late st Contact Info) Description 04/21/2013 Telephone [place] [address] Kian Ervin MD [address] [place] [address] Social History Tobacco Use Types Packs/Day Years [...] and down stairs. Called transferred to the secretary book keeper to make an appointment with one of Dr Ervin's associates. Surgical Procedure Performed: Injection left hip with 10 cc marcaine 0.25% with epi, into skin and subcutaneous tissues (CPT [id number]) left total hip arthroplasty, anterior Hueter approach with [place] table (CPT code 00546) Left hip intraoperative radiologic examination (CPT code 28393) Amicar infusion (5 g IV load, then 1g/hr x 3 hrs) documented in this encounter Plan of Treatment Upcoming Encounters Date Type Department Care Team (Late st Contact Info) Description 08/05/2024 8:20 AM EST Office Visit Dermatology at [facility] [address] [place] [address] Charu Martin MD [facility] DR [place] [place] [address] 11/16/2024 1:00 PM EST Office [place] [address] Paula Harris PA [facility] [place] [address] 01/26/2025 9:50 AM EDT Appointment Mammography/[place] [address] Joan Deutsch APRN [facility] [place] [address] 01/26/2025 10:30 AM EDT Office [place] [address] Joan Deutsch APRN [facility] [place] [address] documented as of this encounter Visit Diagnoses Not on filedocumented in this encounter Care Teams Delivery Stock Clerk Relationship Specialty Start Date End Date Mariluz Watts MD [address] [place], [place] [address]Y [facility] 1 [place] [address] PCP - General 08/22/10 documented as of this encounter
--- OUTSIDE RECORDS SUMMARY | 2024-07-02 16:37 | XMS_ITS | Encounter Summary ---
[place] [address] Care Team Providers Care Plate Furnace Operator Name Role Phone Mariluz Watts MD Primary Care Provider [phone] Reason for Visit * Reason Onset Date Comments Pharyngitis 03/16/2013 Other Encounter Details Date Type Department Care Team (Late st Contact Info) Description 03/16/2013 Telephone Hematology [place] [address] Nancy Ceron Pharyngitis; Social History Tobacco Use [...] not helping. She can be reached at [phone]. Returned call to the pt. Nasal quality [...] however her symtpms may be r/t to child and family services specialist. Suggested she return to her PCP for [...] 8:20 AM EST Office Visit Dermatology at [place] [address] [place] [address] Charu Martin MD [facility] [place] [address] 11/16/2024 1:00 PM EST Office [place] [address] Paula Harris PA [facility] GENERAL SURGERY [place], [place] [address] 01/26/2025 9:50 AM EDT Appointment Mammography/[place] [address] Joan Deutsch APRN [facility] [place] [address] 01/26/2025 10:30 AM EDT Office Visit [place] [address] Joan Deutsch [facility] [address] documented as of this encounter Visit Diagnoses Not on filedocumented in this encounter Care Teams Plate Furnace Operator Relationship Specialty Start Date End Date Mariluz Watts MD [address] [place] [address] [address] [place] [address] PCP - General 08/22/10 documented as of this encounter
--- OUTSIDE RECORDS SUMMARY | 2024-07-02 16:37 | XMS_ITS | Encounter Summary ---
Author Organization [facility] [address] Care Team Providers Care Boat Buffer Plastic Name Role Phone Mariluz Watts MD Primary Care Provider [phone] Reason for Visit * Reason Comments Rosacea Encounter Details Date Type Department Care Team (Late st Contact Info) Description 02/01/2014 1:00 PM EDT Follow-Up Dermatology at [facility] [address] [place] [address] Angeles Ferro MD [facility] [place] [address] Rosacea; SK (seborrheic keratosis); Sebaceous hyperplasia of [...] questions/concerns. Angeles Ferro MD Resident in Dermatology [facility] Patient seen and evaluated with staff instrumentation technician: Santo Iniguez MD Section of Dermatology [facility] Note initiated by: [place] LPN: I [...] 8:20 AM EST Office Visit Dermatology at [facility] [address] [place] [address] Charu Martin MD [facility] [place] [address] 11/16/2024 1:00 PM EST Office Visit General Surgery at [place] [address] Paula Harris PA [facility] [place] [address] 01/26/2025 9:50 AM EDT Appointment Mammography/[place] [address] Joan Deutsch, [facility] [place] [address] 01/26/2025 10:30 AM EDT Office [place] [address] Joan Deutsch, [facility] [place] [address] documented as of this encounter Visit Diagnoses Diagnosis Rosacea SK (seborrheic keratosis) Other seborrheic keratosis Sebaceous hyperplasia of face Other specified disease of sebaceous glands documented in this encounter Care Teams Boat Buffer Plastic Relationship Specialty Start Date End Date Mariluz Watts MD [address] [place] [address] PCP - General 08/22/10 documented as of this encounter
--- OUTSIDE RECORDS SUMMARY | 2024-07-02 16:37 | XMS_ITS | Encounter Summary ---
[place] [address] Care Team Providers Care Clinical Outcomes Manager Name Role Phone Mariluz Watts MD Primary Care Provider [phone] Reason for Visit * Reason Comments Medication Refill Encounter Details Date Type Department Care Team (Late Contact Info) Description 08/19/2013 Refill Hematology [place] [address] Nhi Chadwick APRN [facility] DR HEMATOLOGY/[place] [address] Social History Tobacco Use Types Packs/Day Years [...] Visit Dermatology at [facility] [address] [place] [address] Charu Martin MD [facility] [place] [address] 11/16/2024 1:00 PM EST Office Visit General Surgery at [place] [phone] Paula Harris PA [facility] [address] 01/26/2025 9:50 AM EDT Appointment Mammography/[place] [address] Joan Deutsch, GE [facility] [place] [address] 01/26/2025 10:30 AM EDT Office Visit [place] [address] Joan Deutsch RN [employer] [facility] [address] documented as of this encounter Visit Diagnoses Not on filedocumented in this encounter Care Teams Clinical Outcomes Manager Relationship Specialty Start Date End Date Mariluz Watts MD [address] [place] [address] [address] [facility] 1 [place] [address] PCP - General 08/22/10 documented as of this encounter
--- OUTSIDE RECORDS SUMMARY | 2024-07-02 16:37 | XMS_ITS | Encounter Summary ---
[place] [address] Care Team Providers Care Furnace Mason Name Role Phone Mariluz Watts MD Primary Care Provider [phone] Reason for Visit * Reason Onset Date Comments Other 05/25/2013 Follow Up Encounter Details Date Type Department Care Team (Late st Contact Info) Description 05/25/2013 Telephone [place] [address] Kimberly Ackerman RN Other (Follow Up) Social [...] Telephone Encounter - Scar Aviles II, - 05/25/2013 5:04 PM EDT Called pt [...] 8:20 AM EST Office Visit Dermatology at [place] [address] [place] [address] Charu Martin MD [facility] [address] [place] [address] 11/16/2024 1:00 PM EST Office Visit [place] [address] Paula Harris PA [facility] [place] [address] 01/26/2025 9:50 AM EDT Appointment Mammography/[place] [address] Joan Deutsch APRN [facility] [place] [address] 01/26/2025 10:30 AM EDT Office Visit [place] [address] Joan Deutsch APRN [facility] [place] [address] documented as of this encounter Visit Diagnoses Not on filedocumented in this encounter Care Teams Furnace Mason Relationship Specialty Start Date End Date Mariluz Watts MD [address] [place] [address] PCP - General 08/22/10 documented as of this encounter
--- OUTSIDE RECORDS SUMMARY | 2024-07-02 16:37 | XMS_ITS | Encounter Summary ---
Author Organization [facility] [address] Care Team Providers Care Tax Services Manager Name Role Phone Mariluz Watts MD Primary Care Provider [phone] Encounter Details Date Type Department Care Team (Latest Contact Info) Description 06/10/2013 12:53 PM EDT - 06/10/2013 11:59 PM EDT Hospital Encounter XRay at [address] [place] [address] CLINIC, Morgan Palma MD [facility] [place] [address] Arthritis of right foot Discharge Disposition: Home [...] Refills Start Date End Date LACTOBAC CMB #[id number] ORAL Take 1 tablet by mouth daily. [...] 45 g 3 12/31/2012 02/01/2014 lactobac cmb #1-[id number] (PROBIOTIC & ACIDOPHILUS) 300-250 million cell-mg Cap [...] ARTHROCENTESIS,DRAIN/INJECT JOINT/BURSA Pre-Procedure Diagnose(s): Pain [employer] [id number] HISTORY: Pain right foot Right navicular cuneiform [...] at [facility] [address] [place] [address] Charu Martin MD [facility] [place] [address] 11/16/2024 1:00 PM EST Office [place] [address] Paula Harris PA [facility] [place] [address] 01/26/2025 9:50 AM EDT Appointment Mammography/[place] [address] Joan Deutsch [facility] [place] [address] 01/26/2025 10:30 AM EDT Office [place] [address] Joan Deutsch CRYOGENICS REPAIRER [facility] [place] [address] documented as of this encounter Procedures Procedure [...] midfoot. ?? 2. PAIN SCORE: ?? Before: 3 /10 ?? After: 10 ?? 3. Medications: ?? Lidocaine 1% - [...] the midfoot. 2. PAIN SCORE: Before: 3 10 After: 3. Medications: Lidocaine 1% - <5 [...] EDT documented in this encounter Care Teams Tax Services Manager Relationship Specialty Start Date End Date Mariluz Watts MD [address] [place] [address] [address] [facility] [place] [address] [place] [address] PCP - General 08/22/10 documented as of this encounter
--- OUTSIDE RECORDS SUMMARY | 2024-07-02 16:38 | XMS_ITS | Encounter Summary ---
[place] [address] Care Team Providers Care Investigation Manager Name Role Phone Mariluz Watts MD Primary Care Provider [phone] Reason for Visit * Reason Onset Date Comments Rash 08/14/2012 Encounter Details Date Type Department Care Team (Late st Contact Info) Description 08/14/2012 [place] [address] Kian Ervin MD [address] [place] [address] Rash Social History Tobacco Use Types Packs/Day [...] treated with doxycycline, allergy to tetracyclines, treated machine sand mixer with prednisone. We will bring her in today for a visit to assess the rash. She reports it is not on the incision itself but on the perimeter out about 4 and going up her abdomen. documented in this encounter Plan of Treatment Upcoming Encounters Date Type Department Care Team (Late st Contact Info) Description 08/05/2024 8:20 AM EST Office Visit Dermatology at [facility] [address] [place] [address] Charu Martin MD [facility] DR [place] [address] 11/16/2024 1:00 PM EST Office [place] [address] Paula Harris PA [facility] [place] [address] 01/26/2025 9:50 AM EDT Appointment Mammography[place] [address] Joan Deutsch APRN [facility] [place] [address] 01/26/2025 10:30 AM EDT Office [place] [address] Joan Deutsch APRN [facility] [place] [address] documented as of this encounter Visit Diagnoses Not on filedocumented in this encounter Care Teams Investigation Manager Relationship Specialty Start Date End Date Mariluz Watts MD [address] [place] [address] PCP - General 08/22/10 documented as of this encounter
--- OUTSIDE RECORDS SUMMARY | 2024-07-02 16:38 | XMS_ITS | Encounter Summary ---
[place] [address] Care Team Providers Care Topstitcher Lockstitch Name Role Phone Mariluz Watts MD Primary Care Provider [phone] Encounter Details Date Type Department Care Team (Late st Contact Info) Description 07/28/2012 Telephone [place] [address] Taz Morales RN Social History Tobacco Use [...] AM EST Office Visit Dermatology at [address] [address] Charu Martin MD [facility] DR [place] [address] 11/16/2024 1:00 PM EST Office Visit [place] [address] Paula Harris PA [facility] [place] [address] 01/26/2025 9:50 AM EDT Appointment Mammography/[place] [address] Joan Deutsch APRN [facility] [place] [address] 01/26/2025 10:30 AM EDT Office Visit [place] [address] Joan Deutsch APRN [facility] [place] [address] documented as of this encounter Visit Diagnoses Not on filedocumented in this encounter Care Teams Topstitcher Lockstitch Relationship Specialty Start Date End Date Mariluz Watts MD [address] [place] [address] PCP - General 08/22/10 documented as of this encounter
--- OUTSIDE RECORDS SUMMARY | 2024-07-02 16:38 | XMS_ITS | Encounter Summary ---
Author Organization [facility] [place] [address] Care Team Providers Care Lvn Lpn Name Role Phone Mariluz Watts MD Primary Care Provider [phone] Reason for Visit * Reason Onset Date Comments Medication Problem 08/04/2012 ?dosage Encounter Details Date Type Department Care Team (Late st Contact Info) Description 08/04/2012 [place] [address] Chayo Willingham MD [facility] [address] [place] [place] [address] Social History Tobacco Use Types Packs/Day Years [...] be lowered. She can be reached at [phone] eyal documented in this encounter Plan of Treatment Upcoming Encounters Date Type Department Care Team (Late st Contact Info) Description 08/05/2024 8:20 AM EST Office Visit Dermatology at [place] [address] [place] [address] Charu Martin MD [facility] DR [place] [address] 11/16/2024 1:00 PM EST Office [place] [address] Paula Harris PA [facility] [place] [address] 01/26/2025 9:50 AM EDT Appointment Mammography/[place] [address] Joan Deutsch APRN [facility] [place] [address] 01/26/2025 10:30 AM EDT Office [place] [address]1000 Joan Deutsch APRN [facility] [place] [address] documented as of this encounter Visit Diagnoses Not on filedocumented in this encounter Care Teams Lvn Lpn Relationship Specialty Start Date End Date Mariluz Watts MD [address] [place] [address] PCP - General 08/22/10 documented as of this encounter
--- OUTSIDE RECORDS SUMMARY | 2024-07-02 16:38 | XMS_ITS | Encounter Summary ---
Author Organization [facility] [address] Care Team Providers Care Supervisor Remelt Name Role Phone Mariluz Watts MD Primary Care Provider [phone] Reason for Visit * Reason Onset Date Comments Medication Refill 01/06/2013 [facility] calling for a refill Encounter Details Date Type Department Care Team (Late st Contact Info) Description 01/06/2013 Telephone Dermatology at [facility] [address] [place] [address] Chayo Willingham MD [facility] [address] [place] [address] Medication Refill ([facility] calling for a refill) Social History [...] AM EDT Dr Willingham patient Levon from [facility] calling for a refill of benjamin-tab 250 milgram eyal documented in this encounter Plan of Treatment Upcoming Encounters Date Type Department Care Team (Late st Contact Info) Description 08/05/2024 8:20 AM EST Office Visit Dermatology at [place] [address] [place] [address] Charu Martin MD [facility] [address] [place] [address] 11/16/2024 1:00 PM EST Office [place] [address] Paula Harris PA [facility] [place] [address] 01/26/2025 9:50 AM EDT Appointment Mammography[place] [address] Joan Deutsch APRN [facility] [place] [address] 01/26/2025 10:30 AM EDT Office [place] [address] Joan Deutsch APRN [facility] [place] [address] documented as of this encounter Visit Diagnoses Not on filedocumented in this encounter Care Teams Supervisor Remelt Relationship Specialty Start Date End Date Mariluz Watts MD [address] [place], [place] [address] [place] [address] PCP - General 08/22/10 documented as of this encounter
--- OUTSIDE RECORDS SUMMARY | 2024-07-02 16:38 | XMS_ITS | Encounter Summary ---
[place] [address] Care Team Providers Care Bung Remover Name Role Phone Mariluz Watts MD Primary Care Provider [phone] Reason for Visit * Reason Onset Date Comments Other 08/25/2012 Encounter Details Date Type Department Care Team (Late st Contact Info) Description 08/25/2012 Telephone Hematology [place] [address] Gemini Lawrence RN Other Social History Tobacco [...] generated foranastrozoleon 07/25/12. Prescriber Francheska BERG. Called [facility] to verify that they received the script. The last script [facility] filled was in , 90/day supply. Patient would now be due for anotherscript. Called patient [phone] (H),to see of she has a script [...] AM EST Office Visit Dermatology at [address] [address] Charu Martin MD [facility] DR [place] [place] [address] 11/16/2024 1:00 PM EST Office [place] [address] Paula Harris PA [facility] [place] [address] 01/26/2025 9:50 AM EDT Appointment Mammography/[place] [address] Joan Deutsch APRN [facility] [place] [address] 01/26/2025 10:30 AM EDT Office [place] [address] Joan Deutsch APRN [facility] [place] [address] documented as of this encounter Visit Diagnoses Not on filedocumented in this encounter Care Teams Bung Remover Relationship Specialty Start Date End Date Mariluz Watts MD [address] [facility] 1 [place] [address] PCP - General 08/22/10 documented as of this encounter
--- OUTSIDE RECORDS SUMMARY | 2024-07-02 16:38 | XMS_ITS | Encounter Summary ---
Author Organization [facility] [place] [address] Care Team Providers Care Produce Assistant Name Role Phone Mariluz Watst MD Primary Care Provider [phone] Reason for Visit * Reason Comments Follow Up Surgery Encounter Details Date Type Department Care Team (Late st Contact Info) Description 12/09/2012 9:45 AM EDT Follow-Up [place] [address] CLINIC, Bella [place], [facility] [place] [address] Breast cancer (Primary Dx) Discharge Disposition: Home [...] carcinoma with lobular features Tumor Grade: Intermediate Xewzgm-Troka-Ncilbpgjkj Score: 7 Tubular Differentiation: 3 Mitotic Rate: [...] sentinel nodes: 2 (Specimen A - Right Post node) No. positive for carcinoma: 1 (H&E) No. with IHC (+) cells only: 0 (cells not seen by H&E, see Note*) No. negative for carcinoma: 1 (both H&E and IHC For positive nodes: Largest kristi deposit 0.2 cm Extranodal extension Absent Estrogen/Progestin receptors: Performed on blocks C2 and C11 ER immunoreactivity: Positive (see Diagnostic hanna*) LA immunoreactivity: Positive (see Diagnostic hanna*) HER2/shonda expression [...] AM EST Office Visit Dermatology at [place] [address] [place] [address] Charu Martin MD [facility] [place] [address] 11/16/2024 1:00 PM EST Office Visit [place] [address] Paula Harris PA [facility] [place] [address] 01/26/2025 9:50 AM EDT Appointment Mammography/[place] [address] Joan Deutsch, ASSISTANT CASE MANAGER [facility] [place] [address] 01/26/2025 10:30 AM EDT Office Visit [place] [address] Joan Deutsch, [facility] [place] [address] documented as of this encounter Visit Diagnoses Diagnosis Breast cancer- Primary Malignant neoplasm of breast (female), unspecified site documented in this encounter Care Teams Produce Assistant Relationship Specialty Start Date End Date Mariluz Watts MD [address] [place] [address] PCP - General 08/22/10 documented as of this encounter
--- OUTSIDE RECORDS SUMMARY | 2024-07-02 16:38 | XMS_ITS | Encounter Summary ---
[place] [address] Care Team Providers Care Glass Science Engineer Name Role Phone Mariluz Watts MD Primary Care Provider [phone] Reason for Visit * Reason Onset Date Comments Medication Refill 08/25/2012 Encounter Details Date Type Department Care Team (Late st Contact Info) Description 08/25/2012 Refill Hematology [place] [address] Gemini [place] RN Social History Tobacco Use [...] at [facility] [address] [place] [address] Charu Martin MD [facility] [place] [address] 11/16/2024 1:00 PM EST Office Visit General Surgery at [place] [phone] Paula Harris PA [facility] [place] [address] 01/26/2025 9:50 AM EDT Appointment Mammography/[place] [address] Joan Deutsch APRN [facility] [place] [address] 01/26/2025 10:30 AM EDT Office [place] [address] Joan Deutsch APRN [facility] [place] [address] documented as of this encounter Visit Diagnoses Not on filedocumented in this encounter Care Teams Glass Science Engineer Relationship Specialty Start Date End Date Mariluz Watts MD [address] [place] [address] [address] [facility] 1 [place] [address] PCP - General 08/22/10 documented as of this encounter
--- OUTSIDE RECORDS SUMMARY | 2024-07-02 16:38 | XMS_ITS | Encounter Summary ---
[place] [address] Care Team Providers Care Educational Adviser Name Role Phone Mariluz Watts MD Primary Care Provider Reason for Referral * Physical Therapy (Routine) - Complete - Patient Will Schedule External Appt Specialty Diagnoses / Procedures Referred By John lyons Referred To Contact Physical Therapy Diagnoses S/P total hip arthroplasty Kian Ervin MD [address] [place] [address] Referral ID Status Reason Start Date Expiration Date Visits Requested Visits Authorized [id number] Complete - Patient Will Schedule External Appt Evaluate and Treat 2 02/14/2013 1 1 Reason for Visit * Reason Comments Follow Up Surgery DOS 07/22/12 Left AN T ARSLAN Encounter Details Date Type Department Care Team (Late st Contact Info) Description 08/18/2012 12:45 PM EST Office Visit [place] [address] Kian Ervin MD [address] [place] [address] S/P total hip arthroplasty (Primary Dx) Discharge [...] 8:20 AM EST Office Visit Dermatology at [address] [place] [address] Charu Martin MD [facility] [place] [address] 11/16/2024 1:00 PM EST Office Visit [place] [address] Paula Harris PA [facility] [place] [address] 01/26/2025 9:50 AM EDT Appointment Mammography/[place] [address] Joan Deutsch APRN [facility] [place] [address] 01/26/2025 10:30 AM EDT Office Visit [place] [address]1000 Joan Deutsch APRN [facility] [place] [address] Scheduled Referrals Name Type Priority Associated Diagnoses Orde r Schedule Referral to Physical Therapy Outpatient Referral Routine S/P total hip arthroplasty Ordered: 08/18/2012 documented as of this encounter Visit Diagnoses Diagnosis S/P total hip arthroplasty- Primary Hip joint replacement by other means documented in this encounter Care Teams Educational Adviser Relationship Specialty Start Date End Date Mariluz Watts MD [address] [place] [address] PCP - General 08/22/10 documented as of this encounter
--- OUTSIDE RECORDS SUMMARY | 2024-07-02 16:38 | XMS_ITS | Encounter Summary ---
Author Organization [facility] [place] [address] Care Team Providers Care Card Puncher Name Role Phone Mariluz Watts MD Primary Care Provider [phone] Encounter Details Date Type Department Care Team (Latest Contact Info) Description 12/09/2012 9:28 AM EDT - 12/09/2012 11:59 PM EDT Hospital Encounter XRay at [address] [place] [address] Breast cancer, stage 2 Social History Tobacco [...] 8:20 AM EST Office Visit Dermatology at [facility] [address] [place] [address] Charu Martin MD [facility] [place] [address] 11/16/2024 1:00 PM EST Office [place] [address] Paula Harris PA [facility] [place] [address] 01/26/2025 9:50 AM EDT Appointment Mammography[place] [address] Joan Deutsch APRN [facility] [place] [address] 01/26/2025 10:30 AM EDT Office [place] [address] Joan Deutsch APRN [facility] [place] [address] documented as of this encounter Procedures Procedure [...] BMD measurements and plots are available in [employer] under the imaging tab. Paper copies will be sent to providers without [employer] access. If you have received this report without the data sheet and do not have access to [employer], please contact [facility] at [phone] Saturday thru Saturday 8am-4pm. Procedure Note Marly Torres MD - 12/12/2012 Examination DXA CENTRAL-SPINE,HIP, AND/OR WHOLE BODY Clinical History 66 year old woman with osteopenia on an aromatase inhibitor;last dexa1/26/08 Technique Scans were acquired at the lumbar [...] not haveaccess to [employer], please contact [facility] at [phone] Saturdaythru Saturday 8am-4pm. Abrahan Merlos MD IMG DEXA ORDERABLES documented in this encounter Visit Diagnoses Diagnosis Breast cancer, stage 2 Malignant neoplasm of breast (female), unspecified site documented in this encounter Care Teams Card Puncher Relationship Specialty Start Date End Date Mariluz Watts MD [address] [place] [address] [address] [facility] 1 [place] [address] PCP - General 08/22/10 documented as of this encounter
--- OUTSIDE RECORDS SUMMARY | 2024-07-02 16:38 | XMS_ITS | Encounter Summary ---
Author Organization [facility] [place] [address] Care Team Providers Care Machine Maintenance Repairer Name Role Phone Mariluz Watts MD Primary Care Provider [phone] Reason for Visit * Reason Onset Date Comments Medication Refill 08/27/2012 Encounter Details Date Type Department Care Team (Late Contact Info) Description 08/27/2012 Refill Dermatology at [facility] [address] [place] [address] Chayo Willingham MD [facility] DR CONG [place] [address] Rosacea (Primary Dx) Social History Tobacco Use [...] 8:20 AM EST Office Visit Dermatology at [facility] [address] [place] [address] Charu Martin MD [facility] DR CONG [place] [address] 11/16/2024 1:00 PM EST Office Visit General Surgery at [place] [phone] Paula Harris PA [facility] [place] [address] 01/26/2025 9:50 AM EDT Appointment Mammography/DXA at [place] [phone] Joan Deutsch APRN [facility] [place] [address] 01/26/2025 10:30 AM EDT Office Visit [place] [address] Joan Deutsch APRN [facility] [place] [address] documented as of this encounter Visit Diagnoses Diagnosis Rosacea- Primary documented in this encounter Care Teams Machine Maintenance Repairer Relationship Specialty Start Date End Date Mariluz Watts MD [address] [place] [address] [address] [place] [address] PCP - General 08/22/10 documented as of this encounter
--- OUTSIDE RECORDS SUMMARY | 2024-07-02 16:38 | XMS_ITS | Encounter Summary ---
Author Organization [facility] [place] [address] Care Team Providers Care Catering Administrative Assistant Name Role Phone Mariluz Watts MD Primary Care Provider [phone] Reason for Visit * Reason Comments Wound Evaluation SP L ARSLAN DOS 2- PT STATES THAT SHE HAS A RASH Encounter Details Date Type Department Care Team (Late st Contact Info) Description 08/14/2012 1:30 PM EST Follow-Up [place] [address] CLINIC, DR [facility]RAY Discharge Disposition: Home Social [...] 8:20 AM EST Office Visit Dermatology at [place] [address] [place] [address] Charu Martin MD [facility] [place] [address] 11/16/2024 1:00 PM EST Office Visit [place] [address] Paula Harris PA [facility] [place] [address] 01/26/2025 9:50 AM EDT Appointment Mammography/[place] [address] Joan Deutsch APRN [facility] [place] [address] 01/26/2025 10:30 AM EDT Office Visit [place] [address] Joan Deutsch APRN [facility] [place] [address] documented as of this encounter Visit Diagnoses Not on filedocumented in this encounter Care Teams Catering Administrative Assistant Relationship Specialty Start Date End Date Mariluz Watts MD [address] [place] [address] [address] [place] [address] PCP - General 08/22/10 documented as of this encounter
--- OUTSIDE RECORDS SUMMARY | 2024-07-02 16:38 | XMS_ITS | Encounter Summary ---
Author Organization [facility] [place] [address] Care Team Providers Care Tobacco Farmworker Name Role Phone Mariluz Watts MD Primary Care Provider [phone] Encounter Details Date Type Department Care Team (Late st Contact Info) Description 12/03/2012 11:23 AM EST - 12/03/2012 11:59 PM [facility] Hospital Encounter XRay at [address] [place] [address] Hand pain Social History Tobacco Use Types [...] 8:20 AM EST Office Visit Dermatology at [place] [address] [place] [address] Charu Martin MD [facility] [place] [address] 11/16/2024 1:00 PM EST Office [place] [address] Paula Harris PA [facility] [place] [address] 01/26/2025 9:50 AM EDT Appointment Mammography/[place] [address] oJan Deutsch, [facility] [place] [address] 01/26/2025 10:30 AM EDT Office [place] [address] Joan Deutsch, [facility] [place] [address] documented as of this encounter Procedures Procedure [...] limb documented in this encounter Care Teams Tobacco Farmworker Relationship Specialty Start Date End Date Mariluz Watts MD [address] [facility] 1 [place] [address] PCP - General 08/22/10 documented as of this encounter
--- OUTSIDE RECORDS SUMMARY | 2024-07-02 16:38 | XMS_ITS | Encounter Summary ---
Author Organization [facility] [place] [address] Care Team Providers Care Certified Fire Investigator Name Role Phone Mariluz Watts MD Primary Care Provider [phone] Encounter Details Date Type Department Care Team (Late st Contact Info) Description 11/12/2012 Orders [place] [address] Kian Ervin MD [address] [place] [address] Social History Tobacco Use Types Packs/Day Years [...] AM EST Office Visit Dermatology at [facility] [address] [place] [address] Charu Martin MD [facility] [place] [address] 11/16/2024 1:00 PM EST Office [place] [address] Paula Harris PA [facility] [place] [address] 01/26/2025 9:50 AM EDT Appointment Mammography/[place] [address] Joan Deutsch, [facility] [place] [address] 01/26/2025 10:30 AM EDT Office [place] [address] Joan Deutsch, [facility] [place] [address] documented as of this encounter Procedures Procedure [...] is a non-reportable exam. Kian Ervin MD [facility] FILM LIBRARY ORD ERABLES [facility] [address] [place] [address] documented in this encounter Visit Diagnoses Not on filedocumented in this encounter Care Teams Certified Fire Investigator Relationship Specialty Start Date End Date Mariluz Watts MD [address] [place] [address] [facility] 1 [place] [address] PCP - General 08/22/10 documented as of this encounter
--- OUTSIDE RECORDS SUMMARY | 2024-07-02 16:38 | XMS_ITS | Encounter Summary ---
Author Organization [facility] [place] [address] Care Team Providers Care Childcare Teacher Name Role Phone Mariluz Watts MD Primary Care Provider [phone] Reason for Visit * Reason Comments Aftercare Of [facility] S/P LEFT ANT ARSLAN DOS 07/22/12 WITH R HIP PAIN FALL 11/12/12 RIGHT ARSLAN 03/06/05 Encounter Details Date Type Department Care Team (Late st Contact Info) Description 12/22/2012 12:10 PM EDT Office [place] [address] Kian Ervin MD [address] [place] [address] S/P Left Anterior ARSLAN- 07/22/12 (Dr. Ervin) [...] epi, into skin and subcutaneous tissues (CPT [id number]) left total hip arthroplasty, anterior Hueter approach with Gladys table (CPT code 52947) Left hip intraoperative radiologic examination (CPT code 87977) Amicar infusion (5 g IV load, then [...] AM EST Office Visit Dermatology at [address] [address] Charu Martin MD [facility] DR [place] [address] 11/16/2024 1:00 PM EST Office [place] [address] Paula Harris PA [facility] [place] [address] 01/26/2025 9:50 AM EDT Appointment Mammography/[place] [phone] Joan Deutsch APRN [facility] [place] [address] 01/26/2025 10:30 AM EDT Office [place] [address] Joan Deutsch APRN [facility] [place] [address] documented as of this encounter Visit Diagnoses Diagnosis S/P Left Anterior ARSLAN- 07/22/12 (Dr. Ervin)- Primary Hip joint replacement by other means Status post hip replacement Hip joint replacement by other means documented in this encounter Care Teams Childcare Teacher Relationship Specialty Start Date End Date Mariluz Watts MD [address] [place] [address] PCP - General 08/22/10 documented as of this encounter
--- OUTSIDE RECORDS SUMMARY | 2024-07-02 16:38 | XMS_ITS | Encounter Summary ---
Author Organization [facility] [place] [address] Care Team Providers Care Hogshead Liner Name Role Phone Mariluz Watts MD Primary Care Provider [phone] Encounter Details Date Type Department Care Team (Late st Contact Info) Description 08/04/2012 [place] [address] Chayo Willingham MD [facility] [place] [address] Rosacea (Primary Dx) Social History Tobacco Use [...] to decrease and have rx sent to [facility] pharmacy. documented in this encounter Plan of Treatment Upcoming Encounters Date Type Department Care Team (Late st Contact Info) Description 08/05/2024 8:20 AM EST Office Visit Dermatology at [facility] [address] [place] [address] Charu Martin MD [facility] [place] [address] 11/16/2024 1:00 PM EST Office Visit General Surgery at [address] Paula Harris PA [facility] [place] [place] [address] 01/26/2025 9:50 AM EDT Appointment Mammography/[place] [address] Joan Deutsch, LEGAL EDITOR [facility] [place] [place] [address] 01/26/2025 10:30 AM EDT Office [place] [address] Joan Deutsch, LEGAL EDITOR [facility] [place] [place] [address] documented as of this encounter Visit Diagnoses Diagnosis Rosacea- Primary documented in this encounter Care Teams Hogshead Liner Relationship Specialty Start Date End Date Mariluz Watts MD [address] [place] [address] PCP - General 08/22/10 documented as of this encounter
--- OUTSIDE RECORDS SUMMARY | 2024-07-02 16:38 | XMS_ITS | Encounter Summary ---
[place] [address] Care Team Providers Care Corporate Administrative Assistant Name Role Phone Mariluz Watts MD Primary Care Provider [phone] Encounter Details Date Type Department Care Team (Late st Contact Info) Description 07/22/2012 2:39 PM EDT - 07/22/2012 4:52 PM EDT Surgery [place] [address] Nick Ervin MD [address] [place] [address] TOTAL HIP ARTHROPLASTY, ANTERIOR APPROACH (WRVU 19.6) [...] a bowel movement. You can take an lppu-pdz-slmuuzn medication, miralax if needed to combatconstipation. 2. [...] for L ARSLAN anterior Hueter approach w/ Mozier table. Pt has a cerclage wire for intra-op calcar fracture so limited to 50% WB L LE. 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 She used the leg wader boot top assembler to assist L LE back into bed [...] POD#3 L ARSLAN anterior Heuter approach w/ Mozier table. Pt has a cerclage wire for [...] x Pt will move supine<>sit w/ leg wader boot top assembler (I). x Pt will move sit<>stand (I) [...] minutes functional activity GINA LLANOS PT Pager: [phone] * Hero Dsouza - 07/25/2012 2:13 PM EDT Flute Teacher Encounter Note Patient Name: Diamond Gaming : [id number] MR#: [id number] Admit Date: 07/22/2012 1:26 PM Hospital Day 3 days Narrative:Visited to introduce and assess acceptance of Flute Teacher services. Assessment:Patient coping positively with stresses of illness/hospitalization at this time. Pt was in the chair and in good spirits. Pt is living by herself an hs children and grand children. 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 Intervention and Outcome:Flute Teacher services accepted. Conversation to build trusting relationship.Provided [...] re: transfer. Supervision, extra time, and leg wader boot top assembler needed for sit to supine transfer. Supervision [...] minutes; there ex functional x 2 Pager: [phone] ELLA MOYER Occupational Therapy Rehabilitation Department * [...] for L ARSLAN anterior Hueter approach w/ Mozier table. Pt has a cerclage wire for intra-op calcar fracture so limited to 50% WB L LE. 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 ?? She used leg wader boot top assembler and almost had L LE up and [...] POD#2 L ARSLAN anterior Heuter approach w/ Mozier table. Pt has a cerclage wire for [...] x Pt will move supine<>sit w/ leg wader boot top assembler (I). x Pt will move sit<>stand (I) [...] minutes functional activity GINA LLANOS PT Pager: [phone] * Jamee Cabrera OTA - 07/24/2012 4:27 [...] HOB elevated, extra time, and using leg wader boot top assembler to assist LLE. Supervision sit to stand. [...] minutes; there ex functional x 2 Pager: [phone] ELLA MOYER Occupational Therapy Rehabilitation Department * Joan Carballo RN - 07/23/2012 10:30 PM EDT Assumed care of patient from [phone]. AOX4. HRR. VSS. 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 Pt had R ARSLAN In 03/04. Pt denies the need for in-pt rehab and feels she can manage at home with VNA. Pt requests [facility] for services. Pt will be on RIvaroxaban [...] Procedure Performed: Right total hip arthroplasty, cementless, hpislnz-mv-pbetiar Components Used: Brookings Trident 52 shell outer diameter Femoral head 32-4 mm [place] Accolade Femoral stem size 4, 127 deg [...] a bowel movement. You can take an qkzp-tzn-kakmeiw medication, miralax if needed to combatconstipation. 2. [...] PM Nick Ervin MD [facility] [phone] None Joint Appt Health Question Three C Ortho [facility] [phone] None Future Orders Please Complete By Expires Referral to Home Health [APC7544 CPT(R)] Process Instructions: Scheduling Instructions: Comments: [facility] PHONE: [phone] FAX: [phone] DOCUMENTATION FOR VNA SERVICES (INCLUDING THOSE PATIENTS WITH MEDICARE COVERAGE REQUIRING HOME VNA SERVICES AND/OR HOSPICE SERVICES) Diamond Gaming Discharge to own home: [address] [place] [phone] (home) No relevant phone numbers on file. In discussion with the attending physician, it is certified that this patient is under their care and that they, or a nurse practitioner, clinical nurse specialist or physician's commercial lending assistant who is working directly with them, [...] effort and are for medical reasons or restoration services of infrequently or of short duration when for other reasons) All VNA agencies which cover the area of patient's residence have been reviewed, either verbally mathew writing, and patient/family have chosen the home health care agency as noted for home services. Questions: Responses: Agency name and contact information [facility] Patient location post discharge home What services are requested Start date Responsible MD post discharge contact info Provider Contact Information: Primary Care Provider: MARILUZ WATTS MD [phone] Hospital Attending: Nick Ervin MD Department of Orthopaedic Surgery Joints: [phone] Signed: MORENA AWAD 07/25/2012 * Plan of [...] for L ARSLAN anterior Hueter approach w/ Mozier table. Pt has a cerclage wire for [...] Procedure Date: 08/18/2006 ??? Created by interface [id number] Procedure Date: 01/27/2007 ??? Created by interface [...] >4.0CM, TRUNK performed by TIRSO CHAUDHARI at [facility] MA[facility] OR ??? Colonoscopy, diagnostic 02/29/2012 COLONOSCOPY, DIAGNOSTIC performed by RAJAT KUO at [facility] ENDOSCOPY ??? 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 Gait pattern: Saic-va-ftsi and cautious about not putting too much [...] POD#1 L ARSLAN anterior Heuter approach w/ Mozier table. Pt. tolerated today???s session fairly well [...] x Pt will move supine<>sit w/ leg wader boot top assembler (I). x Pt will move sit<>stand (I) [...] treatment: 0 minutes GINA LLANOS, PT Pager: [phone] * Initial Assessments - Roly Garvin, OT [...] dog. 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 Walk in [...] minutes Total timed interventions: 0 minutes Pager: [phone] ROLY GARVIN OT 07/23/2012 Occupational Therapy Rehabilitation [...] Date: Jul 2211-11 Surgeon: Nick Ervin MD Lithograph Operator: Ashley Michelle MD Anesthesia: GET Pre-operative diagnosis: Left hip osteoarthritis Body mass index is 35.35 kg/(m^2). Post-operative diagnosis: Same Surgical Procedure Performed: Injection left hip with 10 cc marcaine 0.25% with epi, into skin and subcutaneous tissues (CPT [id number]) left total hip arthroplasty, anterior Hueter approach with Mozier table (CPT code 97631) Left hip intraoperative radiologic examination (CPT code 87558) Amicar infusion (5 g IV load, then 1g/hr x 3 hrs) Components Used: [place]ings Accolade stem, size 4, 127 degrees Trident [...] wasperformed. Patient was positioned supine on the Mozier table, both feet and ankles were padded [...] liner was placed and impacted according to tank truck milk receiver's instructions. Any impinging osteophytes were removed. The [...] and laterally. At the same time, the commercial lending assistant leaned against the thigh to optimize [...] Implant Name Type Inv. Item Serial No. Logging Superintendent Lot No. LRB No. Used Action SHELL,ACETABULAR,TRIDENT,PSL,S ([id number]) (AUTOREQ) - [id number] IMPLANTS SHELL,ACETABULAR,TRIDENT,PSL,S ([id number]) (AUTOREQ) [employer] - [id number] Left 1 Implanted INSERT,TRIDENT,ALUMINA,0,DEG,3 ([id number]) (AUTOREQ) - [id number] IMPLANTS INSERT,TRIDENT,ALUMINA,0,DEG,3 (6805469) (AUTOREQ) [employer] - 6109 [id number] Left 1 Implanted STEM,FEM,ACCOLADE,127,DEG,NECK ([id number]) (AUTOREQ) - [id number] IMPLANTS STEM,FEM,ACCOLADE,127,DEG,NECK ([id number]) (AUTOREQ) [employer] - 0401 [id number] Left 1 Implanted CABLE,SS,CRMP,1.5E762BE,STR ([id number]) - [id number] IMPLANTS CABLE,SS,CRMP,1.1I740AL,STR ([id number]) [facility] - [id number] Left 1 Implanted HEAD,FEM,ALUMINA,V40,-4X32MM ([id number]) (AUTOREQ) - [id number] IMPLANTS HEAD,FEM,ALUMINA,V40,-4X32MM ([id number]) (AUTOREQ) [employer] - 6109 [id number] Left 1 Implanted documented in this encounter Plan of Treatment Upcoming Encounters Date Type Department Care Team (Late st Contact Info) Description 08/05/2024 8:20 AM EST Office Visit Dermatology at [facility] [address] [place] [address] Charu Martin MD [facility] [place] [address] 11/16/2024 1:00 PM EST Office [place] [address] Paula Harris PA [facility] [place] [place] [address] 01/26/2025 9:50 AM EDT Appointment Mammography[place] [address] Joan Deutsch APRN [facility] [place] [place] [address] 01/26/2025 10:30 AM EDT Office [place] [address] Joan Deutsch FRUIT AND VEGETABLE PACKER [facility] [place] [place] [address] Pending Results Name Type Priority Associated Diagnoses [...] Metabolic Panel (non-fasting) (07/25/2012 4:29 AM EDT) [facility] Glucose 123 60 - 199 mg/dL CERNER MILLENNIUM Comment:Diabetes: >=200 mg/d L plus symptoms Blood Urea Nitrogen 10 8 - 18 mg/dL CERNER MILLENNIUM Creatinine 0.42(L) 0.70 - 1.20 mg/dL CERNER MILLENNIUM Comment: Please note that the pediatric reference intervals supplied above were not validated at [facility]. Results from pediatric [...] MILLENNIUM Est Glomerular Filtration Rate >60 >=60 [facility] Comment: The National Kidney Disease Education Program [...] CERNER MILLENNIUM * (ABNORMAL) CBC (with Diff) (07/25/2012 4:29 [...] S CERNER MANISHAENNIUM * (ABNORMAL) DIFFERENTIAL, AUTOMATED (07/24/2012 3:53 AM [...] EDT Nick Ervin MD HEMATOLOGY ORDERABLE S [facility] * (ABNORMAL) Basic Metabolic Panel (non-fasting) (07/24/2012 3:53 AM EDT) Glucose 127 60 - 199 mg/dL CERNER MILLENNIUM Comment:Diabetes: >=200 mg/d L plus symptoms Blood Urea Nitrogen 16 8 - 18 mg/dL CERNER MILLENNIUM Creatinine 0.58(L) 0.70 - 1.20 mg/dL CERNER MILLENNIUM Comment: Please note that the pediatric reference intervals supplied above were not validated at [facility]. Results from pediatric [...] diabetic kidney disease. References: http://nkdep.nih.gov/resources/NKDEP_Suggestn4Labs_0606_508.pdf http://www.kidney.org/professionals/kls/pdf/faq_gfr.pdf Alex Garcia, Kamilla NA, Ladi AK, Fan TS, Peyton [...] Nick Ervin MD HEMATOLOGY ORDERABLE S VALERIE DYERENNIUM * (ABNORMAL) DIFFERENTIAL, AUTOMATED (07/23/2012 4:36 AM [...] MD HEMATOLOGY ORDERABLE S VALERIE TOPETE * (ABNORMAL) Basic Metabolic Panel (non-fasting) (07/23/2012 4:36 AM EDT) Glucose 148 60 - 199 mg/dL CERNER MILLENNIUM Comment:Diabetes: >=200 mg/d L plus symptoms Blood Urea Nitrogen 14 8 - 18 mg/dL CERNER MILLENNIUM Creatinine 0.51(L) 0.70 - 1.20 mg/dL CERNER MILLENNIUM Comment: Please note that the pediatric reference intervals supplied above were not validated at [facility]. Results from pediatric [...] CERNER MILLENNIUM * (ABNORMAL) CBC (with Diff) (07/23/2012 [...] MD HEMATOLOGY ORDERABLE S VALERIE TOPETE * XR pelvis 1 or 2 views [...] HEMATOLOGY ORDERABLE S CERNER MANISHAENNIUM * (ABNORMAL) CBC (with Diff) (07/22/2012 [...] Standard Deviation 42.0 35.0 - 46.0 fL [facility] RDW coefficient of variation 13.0 10.9 - 14.4 % CERNER MANISHAENNIUM Mean Platelet Volume 10.8 9.0 - 12.0 fL CERRIGO DYERENNIUM Blood specimen (specimen) 07/22/2012 6:30 PM EDT 07/22/2012 6:36 PM EDT Narrative Resulting Agency Comment Spec In Lab Nick Ervin MD HEMATOLOGY ORDERABLE S [facility] * SURGICAL PATHOLOGY REPORT (07/22/2012 6:21 PM EDT) Surgical Pathology Report ? [facility] ? Provider: ?? NICK ERVIN ? Pt. Name: ?? DIAMOND GAMING ? Acc #: ?[id number] ?Pt. ? Col Date: ?? 07/22/2012 ?/Sex: [...] left ? Clinical History/Diagnos is: ? OA VALERIE TOPETE 07/22/2012 6:21 PM EDT Nick Ervin MD PATHOLOGY/CYTOLOGY O RDERABLES VALERIE TOPETE * Specimen to Pathology (surgical or derm) (07/22/2012 4:18 PM EDT) AP Specimen 07/22/2012 4:18 PM EDT 07/22/2012 4:18 PM EDT Narrative VALERIE TOPETE - 07/22/2012 4:18 PM EDT Specimen requisition ordered. ??Separate Pathology report to follow Nick Ervin MD PATHOLOGY/CYTOLOGY O JOSELUIS VALERIE TOPETE documented in this encounter Visit [...] Unit), Routine 0600 (Given - Provider: Morgan Snider, RN)1445 (Given - Provider: Thao Gaona RN)2152 (Given - Provider: Joan Carballo, [place]) 0600 (Given - Provider: Lisa Bucio RN)1339 [...] Gaona RN) 0831 (Given - Provider: Marily MurphyNJ) 0851 (Given - Provider: Marily Murphy RN) ceFAZolin (ANCEF) 1g in dextrose 5% 50mL [...] at 0900, Until Discontinued, Recovery (Recovery-Hospital Unit) 09 (Given - Provider: Thao Gaona RN) 0832 (Given - Provider: Marily Murphy RN) 0852 (Given - Provider: Marily Murphy RN) multivitamin Mlzu-At-VQ-Min (THERAPEUTIC-M) 27-0.4 mg tablet 1 tablet (CANCELED) [...] Patch 1519 (Given - Provider: Marily [place], [place]) scopolamine (TRANSDERM-SCOP) 1.5 mg patch 1 patch(Linked Group 1) 1 patch, Transdermal, EVERY 72 HOURS, First dose on Sat07/22/12 at 1515, Until Discontinued, Routine 1519 (Given - Provider: Marily Murphy, RN) senna-docusate (PERICOLACE) 8.6-50 mg per tablet [...] RN)2015 (Given - Provider: Joan Carballo, [place]) 08 (Given - Provider: Marily Murphy RN)2122 (Given - Provider: Mel Willett RN) 08 (Given - Provider: Marily Murphy RN)2099 (Due) sodium chloride 0.9 % flush 5 mL (CANCELED) 5 mL, Intravenous, EVERY 12 HOURS, First dose on Sat07/22/12 at 2115, Until Discontinued, Recovery (Recovery-Hospital Unit) 0915 (Given - Provider: Thao Gaona RN)2015 (Given - Provider: Joan Carballo RN) 08 (Given - Provider: Marily Murphy RN)2122 (Given - Provider: Mel Willett RN) 0852 (Given - Provider: Marily Murphy RN)2099 (Due - Provider: Morgan Smith [facility]) sodium phosphates (FLEET) 19-7 gram/118 mL rectal enema 1 Bottle (COMPLETED) 1 Bottle, Rectal, ONCE, 1 dose, On Sat07/25/12 at 1330, Routine 1247 (Given - Provider: Marily Murphy, [place]) tretinoin (RETIN-A) 0.05 % cream (CANCELED) Topical, NIGHTLY, First dose on Sat07/23/12 at 0900, Until Discontinued, Recovery (Recovery-Hospital Unit) 2015 (Given - Provider: Joan Carballo, [place]) 2123 (Given - Provider: Mel Willett, [place]) 2100 (Due - Provider: Morgan Smith [facility]) Continuous Medication Order 07/23/2012 07/24/2012 [...] Routine 0517 (Not Given - Provider: Morgan Snider RN - Reason: Entered in Error)0530 (Given [...] Routine 0133 (See Alternative - Provider: Morgan Snider, [place])0452 (Given - Provider: Morgan Snider, [place])0935 (Given - Provider: Thao Gaona RN)1850 (Given - Provider: Thao Gaona RN) 0122 (Given - Provider: Lisa Bucio RN)0518 (Given - Provider: Lisa Bucio RN)1212 (Given - Provider: Marily Murphy, [place])1659 (Given - Provider: Marily Murphy, [place])2122 (Given - Provider: Mel Willett, [place]) 0156 (Given - Provider: Mel Willett, JN)0851 (Given - Provider: Marily Murphy, [place]) OXYcodone [...] Bucio RN)0518 (See Alternative - Provider: Lisa Bucio, [place])1212 (See Alternative - Provider: Marily Murphy, RN)1659 (See Alternative - Provider: Marily Murphy, RN)2122 (See Alternative - Provider: Mel Willett, RN) 0156 (See Alternative - Provider: Mel Willett, RN)0851 (See Alternative - Provider: Marily Murphy, RN) polyethylene glycol (MIRALAX) packet 17 g [...] Routine documented in this encounter Care Teams Corporate Administrative Assistant Relationship Specialty Start Date End Date Mariluz Watts MD [address] [place] [address] PCP - General 08/22/10 documented as of this encounter
--- OUTSIDE RECORDS SUMMARY | 2024-07-02 16:38 | XMS_ITS | Encounter Summary ---
Author Organization [facility] [place] [address] Care Team Providers Care Methods And Procedures Analyst Name Role Phone Mariluz Watts MD Primary Care Provider [phone] Encounter Details Date Type Department Care Team (Late st Contact Info) Description 11/19/2012 External Results XRay at [address] [place] [address] Diego Melendrez MD [address] [place], [place] [id number] Social History Tobacco Use Types Packs/Day Years [...] Visit [facility] at [facility] [address] [place] [address] Charu Martin MD [facility] [place] [address] 11/16/2024 1:00 PM EST Office Visit General Surgery at [place] [phone] Paula Harris PA [facility] [place] [address] 01/26/2025 9:50 AM EDT Appointment Mammography/[place] [address] Joan Deutsch [facility] [place] [address] 01/26/2025 10:30 AM EDT Office Visit General Surgery at [place] [phone] Joan Deutsch [facility] [place] [address] documented as of this encounter Procedures Procedure Name Priority Date/Time Associated Diagnosis Comments DIAGNOSTIC RADIOLOGY SCAN Routine 11/12/2012 documented in this encounter Results * Scan Doc: Diagnostic Radiology (11/12/2012) Anatomical Region Laterality Modality Other Diego Melendrez MD MEDIA MGR SCAN EXT O RDR/RSLT documented in this encounter Visit Diagnoses Not on filedocumented in this encounter Care Teams Methods And Procedures Analyst Relationship Specialty Start Date End Date Mariluz Watts MD [address] [place] [address] [address] PCP - General 08/22/10 documented as of this encounter
--- OUTSIDE RECORDS SUMMARY | 2024-07-02 16:38 | XMS_ITS | Encounter Summary ---
Author Organization [facility], [facility] [place] [address] Care Team Providers Care Parts Department Supervisor Name Role Phone Mariluz Watts MD Primary Care Provider [phone] Reason for Visit * Reason Comments Rosacea Encounter Details Date Type Department Care Team (Late st Contact Info) Description 12/31/2012 1:50 PM EDT Follow-Up Dermatology at [facility] [address] [place] [address] Chayo Willingham MD [facility] [place] [address] Sebaceous hyperplasia (Primary Dx); Rosacea Discharge Disposition: [...] supervision with direct supervision immediately available. 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 Reassured. Pt [...] questions/concerns. Chayo Willingham MD Resident in Dermatology [facility] Patient seen and evaluated with staff service operator: Meagan Johnson MD Section of Dermatology [facility] documented in this encounter Plan of Treatment Upcoming Encounters Date Type Department Care Team (Late st Contact Info) Description 08/05/2024 8:20 AM EST Office Visit Dermatology at [facility] [address] [place] [address] Charu Martin MD [facility] [address] [place] [address] 11/16/2024 1:00 PM EST Office [place] [phone] Paula Harris PA [facility] [place] [address] 01/26/2025 9:50 AM EDT Appointment Mammography/[place] [phone] Joan Deutsch APRN [facility] [place] [address] 01/26/2025 10:30 AM EDT Office [place] [address] Joan Deutsch APRN [facility] [place] [address] documented as of this encounter Visit Diagnoses Diagnosis Sebaceous hyperplasia- Primary Other specified disease of sebaceous glands Rosacea documented in this encounter Care Teams Parts Department Supervisor Relationship Specialty Start Date End Date Mariluz Watts MD [address] [place] [address] PCP - General 08/22/10 documented as of this encounter
--- OUTSIDE RECORDS SUMMARY | 2024-07-02 16:38 | XMS_ITS | Encounter Summary ---
[place] [address] Care Team Providers Care Channel Turner Name Role Phone Mariluz Watts MD Primary Care Provider [phone] Reason for Visit * Reason Comments Medication Refill Encounter Details Date Type Department Care Team (Late Contact Info) Description 08/25/2012 Refill Hematology [place] [address] Nhi Chadwick APRN [facility] DR HEMATOLOGY/[place] [address] Social History Tobacco Use Types Packs/Day Years [...] at [facility] [address] [place] [address] Charu Martin MD [facility] [place] [address] 11/16/2024 1:00 PM EST Office Visit General Surgery at [place] [phone] Paula Harris PA [facility] [place] [address] 01/26/2025 9:50 AM EDT Appointment Mammography/[place] [address] Joan Deutsch, GE [facility] [place] [address] 01/26/2025 10:30 AM EDT Office Visit [place] [address] Joan Deutsch W[employer]ESS RETAIL MANAGER [facility] [place] [address] documented as of this encounter Visit Diagnoses Not on filedocumented in this encounter Care Teams Channel Turner Relationship Specialty Start Date End Date Mariluz Watts MD [address] [place] [address] [address] [facility] [place] [address] PCP - General 08/22/10 documented as of this encounter
--- OUTSIDE RECORDS SUMMARY | 2024-07-02 16:38 | XMS_ITS | Encounter Summary ---
[place] [address] Care Team Providers Care Experimental Aircraft Mechanic Name Role Phone Mariluz Watts MD Primary Care Provider Encounter Details Date Type Department Care Team (Latest Contact Info) Description 12/09/2012 9:28 AM EDT - 12/09/2012 11:59 PM EDT Hospital [place] [address] Malignant neoplasm of breast (female), unspecified site [...] Dermatology at [facility] [address] [place] [address] Charu Martin MD [facility] DR [place] [place] [address] 11/16/2024 1:00 PM EST Office [place] [address] Paula Harris PA [facility] [place] [address] 01/26/2025 9:50 AM EDT Appointment Mammography[place] [address] Joan Deutsch APRN [facility] [place] [address] 01/26/2025 10:30 AM EDT Office [place] [phone] Joan Deutsch APRN [facility] [place] [address] documented as of this encounter Procedures Procedure [...] direct digital capture. The exam was evaluated byCyberHeart Version 8.3.17. FINDINGS: This is a negative [...] site documented in this encounter Care Teams Experimental Aircraft Mechanic Relationship Specialty Start Date End Date Mariluz Watts MD [address] [facility] [place] [address] PCP - General 08/22/10 documented as of this encounter
--- OUTSIDE RECORDS SUMMARY | 2024-07-02 16:38 | XMS_ITS | Encounter Summary ---
Author Organization [facility] [place] [address] Care Team Providers Care Director Of Critical Care Name Role Phone Mariluz Watts MD Primary Care Provider [phone] Reason for Visit * Reason Comments Follow-up Encounter Details Date Type Department Care Team (Late st Contact Info) Description 12/09/2012 11:30 AM EDT Follow-Up Hematology [place] [address] CLINIC, DR KATARINA Merlos, Abrahan Chavarria MD [facility] DR HEMATOLOGY/[place] [address] Breast cancer, stage 2 (Primary Dx) Discharge [...] this encounter Patient Instructions * Patient Instructions* Abraahn Merlos MD - 12/09/2012 11:54 AM EDT Your exam looks good and I don't see any evidence of breast cancer recurrence. 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 We'll be following the wrist in the future instead of the hip. You are now jail through five years of anastrozole. I'll see [...] followup in six months. Abrahan Merlos MD greeting card editor in Hematology-Oncology documented in this encounter Plan of Treatment Upcoming Encounters Date Type Department Care Team (Late st Contact Info) Description 08/05/2024 8:20 AM EST Office Visit Dermatology at [facility] [address] [place] [address] Charu Martin MD [facility] [place] [address] 11/16/2024 1:00 PM EST Office Visit General Surgery at [place] [phone] Paula Harris PA [facility] [place] [address] 01/26/2025 9:50 AM EDT Appointment Mammography/[place] [phone] Joan Deutsch APRN [facility] [place] [address] 01/26/2025 10:30 AM EDT Office [place] [phone] Joan Deutsch APRN [facility] [place] [address] documented as of this encounter Visit Diagnoses Diagnosis Breast cancer, stage 2- Primary Malignant neoplasm of breast (female), unspecified site documented in this encounter Care Teams Director Of Critical Care Relationship Specialty Start Date End Date Mariluz Watts MD [address] [facility] [place] [address] PCP - General 08/22/10 documented as of this encounter
--- OUTSIDE RECORDS SUMMARY | 2024-07-02 16:38 | XMS_ITS | Encounter Summary ---
Author Organization [facility] [place] [address] Care Team Providers Care Licensed Pharmacist Name Role Phone Mariluz Watts MD Primary Care Provider [phone] Reason for Visit * Reason Comments Left Hand Pain Encounter Details Date Type Department Care Team (Late st Contact Info) Description 12/03/2012 12:30 PM EST Office [place] [address] Lev Garg MD [facility] [place] [address] Dupuytren's contracture (Primary Dx) Discharge Disposition: Home [...] NAME: Diamond Gaming AGE: 66 y.o. MR#: [id number] DATE OF VISIT: 12/03/2012 DATE OF INJURY/ONSET: June 2012 STAFF: Dr. Garg CHIEF COMPLAINT: left palm nodules HISTORY OF PRESENT ILLNESS: Ms. Gaming is a right hand dominant 66 y.o. female who comes into clinictoday for evaluation of the left hand. She was referred to [facility] by Mariluz Watts MD. The patient [...] EST Office Visit Dermatology at [facility] [address] [place] [address] Charu Martin MD [facility] [place] [address] 11/16/2024 1:00 PM EST Office [place] [address] Paula Harris PA [facility] [place] [address] 01/26/2025 9:50 AM EDT Appointment Mammography/DXA at [place] [phone] Joan Deutsch APRN [facility] [place] [place] [address] 01/26/2025 10:30 AM EDT Office [place] [address] Joan Deutsch APRN [facility] [place] [place] [address] documented as of this encounter Visit Diagnoses Diagnosis Dupuytren's contracture- Primary Contracture of palmar fascia documented in this encounter Care Teams Licensed Pharmacist Relationship Specialty Start Date End Date Mariluz Watts MD [address] [place] [address] [address] [place] [address] PCP - General 08/22/10 documented as of this encounter
--- OUTSIDE RECORDS SUMMARY | 2024-07-02 16:38 | XMS_ITS | Encounter Summary ---
Author Organization [facility] [place] [address] Care Team Providers Care Driver Starting Gate Name Role Phone Mariluz Watts MD Primary Care Provider [phone] Reason for Visit * Reason Comments Medication Refill Encounter Details Date Type Department Care Team (Late Contact Info) Description 01/01/2013 Refill Dermatology at [facility] [address] [place] [address] Chayo Willingham MD [facility] [place] [address] Social History Tobacco Use Types Packs/Day Years [...] 8:20 AM EST Office Visit Dermatology at [facility] [address] [place] [address] Charu Martin MD [facility] [place] [address] 11/16/2024 1:00 PM EST Office Visit General Surgery at [place] [phone] Paula Harris PA [facility] [place] [address] 01/26/2025 9:50 AM EDT Appointment Mammography/DXA at [place] [phone] Joan Deutsch, GE [facility] [place] [address] 01/26/2025 10:30 AM EDT Office [place] [phone] Joan Deutsch, PERSONNEL ADMINISTRATOR [facility] [place] [address] documented as of this encounter Visit Diagnoses Not on filedocumented in this encounter Care Teams Driver Starting Gate Relationship Specialty Start Date End Date Mariluz Watts MD [address] [place] [address] [address] PCP - General 08/22/10 documented as of this encounter
--- OUTSIDE RECORDS SUMMARY | 2024-07-02 16:38 | XMS_ITS | Encounter Summary ---
[place] [address] Care Team Providers Care Swage Tender Name Role Phone Mariluz Watts MD Primary Care Provider [phone] Encounter Details Date Type Department Care Team (Latest Contact Info) Description 07/22/2012 1:26 PM EDT - 07/25/2012 9:16 PM EDT Hospital Encounter 3 [place] [address] Nick Ervin MD [address] [place] [address] Shaunna Discharge Disposition: Home Social History Tobacco [...] a bowel movement. You can take an lntm-bwc-dlajqgz medication, miralax if needed to combatconstipation. 2. [...] for L ARSLAN anterior Hueter approach w/ [place] table. Pt has a cerclage wire for intra-op calcar fracture so limited to 50% WB L LE. 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 She used the leg cold meat chef to assist L LE back into bed [...] POD#3 L ARSLAN anterior Heuter approach w/ [place] table. Pt has a cerclage wire for [...] x Pt will move supine<>sit w/ leg cold meat chef (I). x Pt will move sit<>stand (I) [...] minutes functional activity GINA LLANOS PT Pager: [phone] * Hero Dsouza - 07/25/2012 2:13 PM EDT Press Bucker Encounter Note Patient Name: Diamond Gaming : [id number] MR#: [id number] Admit Date: 07/22/2012 1:26 PM Hospital Day 3 days Narrative:Visited to introduce and assess acceptance of Press Bucker services. Assessment:Patient coping positively with stresses of illness/hospitalization at this time. Pt was in the chair and in good spirits. Pt is living by herself an hs children and grand children. 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 Intervention and Outcome:Press Bucker services accepted. Conversation to build trusting relationship.Provided [...] re: transfer. Supervision, extra time, and leg cold meat chef needed for sit to supine transfer. Supervision [...] minutes; there ex functional x 2 Pager: [phone] ELLA MOYER Occupational Therapy Rehabilitation Department * [...] for L ARSLAN anterior Hueter approach w/ [place] table. Pt has a cerclage wire for intra-op calcar fracture so limited to 50% WB L LE. 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 ?? She used leg cold meat chef and almost had L LE up and [...] POD#2 L ARSLAN anterior Heuter approach w/ [place] table. Pt has a cerclage wire for [...] x Pt will move supine<>sit w/ leg cold meat chef (I). x Pt will move sit<>stand (I) [...] minutes functional activity GINA LLANOS PT Pager: [phone] * Jamee Cabrera OTA - 07/24/2012 4:27 [...] HOB elevated, extra time, and using leg cold meat chef to assist LLE. Supervision sit to stand. [...] minutes; there ex functional x 2 Pager: [phone] ELLA MOYER Occupational Therapy Rehabilitation Department * Joan Carballo RN - 07/23/2012 10:30 PM EDT Assumed care of patient from [phone]. AOX4. HRR. VSS. Pt denies SOB, chest [...] RN, and lives with her grandchild and [place] pratt in [facility]. Pt had R ARSLAN In 03/04. Pt denies the need for in-pt rehab and feels she can manage at home with VNA. Pt requests [facility] for services. Pt will be on RIvaroxaban [...] Procedure Performed: Right total hip arthroplasty, cementless, esnznxg-ub-totfxrq Components Used: Nina Trident 52 shell outer [...] a bowel movement. You can take an qckj-den-bdfyxns medication, miralax if needed to combatconstipation. 2. [...] PM Nick Ervin MD [facility] [phone] None Joint Appt Health Question Three C Orth[facility] [phone] None Future Orders Please Complete By Expires Referral to Home Health [[id number] CPT(R)] Process Instructions: Scheduling Instructions: Comments: [facility] PHONE: [phone] FAX: [phone] DOCUMENTATION FOR VNA SERVICES (INCLUDING THOSE PATIENTS WITH MEDICARE COVERAGE REQUIRING HOME VNA SERVICES AND/OR HOSPICE SERVICES) Diamond Mauri Gaming Discharge to own home: [address] [place] [phone] (home) No relevant phone numbers on file. In discussion with the attending physician, it is certified that this patient is under their care and that they, or a nurse practitioner, clinical nurse specialist or physician's nutrition services assistant who is working directly with them, [...] effort and are for medical reasons or latter-day services of infrequently or of short duration when for other reasons) All VNA agencies which cover the area of patient's residence have been reviewed, either verbally amthew writing, and patient/family have chosen the home health care agency as noted for home services. Questions: Responses: Agency name and contact information [facility] Patient location post discharge home What services are requested Start date Responsible MD post discharge contact info Provider Contact Information: Primary Care Provider: MARILUZ WATTS MD [phone] Hospital Attending: Nick Ervin MD Department of Orthopaedic Surgery Joints: [phone] Signed: MORENA AWAD 07/25/2012 * Plan of [...] for L ARSLAN anterior Hueter approach w/ [place] table. Pt has a cerclage wire for [...] Procedure Date: 08/18/2006 ??? Created by interface [id number] Procedure Date: 01/27/2007 ??? Created by interface [...] >4.0CM, TRUNK performed by TIRSO CHAUDHARI at [facility] MAIN OR ??? Colonoscopy, diagnostic 02/29/2012 COLONOSCOPY, DIAGNOSTIC performed by RAJAT KUO at [facility] ENDOSCOPY ??? 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 Gait pattern: Gqrc-dw-souq and cautious about not putting too much [...] POD#1 L ARSLAN anterior Heuter approach w/ [place] table. Pt. tolerated today???s session fairly well [...] x Pt will move supine<>sit w/ leg cold meat chef (I). x Pt will move sit<>stand (I) [...] treatment: 0 minutes GINA LLANOS, PT Pager: [phone] * Initial Assessments - Roly Garvin, OT [...] dog. 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 Walk in [...] minutes Total timed interventions: 0 minutes Pager: [phone] ROLY GARVIN OT 07/23/2012 Occupational Therapy Rehabilitation [...] Date: Jul 2211-11 Surgeon: Nick Ervin MD Genetic Technologist: Ashley Michelle MD Anesthesia: GET Pre-operative diagnosis: Left hip osteoarthritis Body mass index is 35.35 kg/(m^2). Post-operative diagnosis: Same Surgical Procedure Performed: Injection left hip with 10 cc marcaine 0.25% with epi, into skin and subcutaneous tissues (CPT [id number]) left total hip arthroplasty, anterior Hueter approach with [place] table (CPT code 08044) Left hip intraoperative radiologic examination (CPT code 91624) Amicar infusion (5 g IV load, then 1g/hr x 3 hrs) Components Used: Valatie Accolade stem, size 4, 127 degrees Trident [...] wasperformed. Patient was positioned supine on the [place] table, both feet and ankles were padded [...] liner was placed and impacted according to keeler polygraph operator's instructions. Any impinging osteophytes were removed. The [...] and laterally. At the same time, the nutrition services assistant leaned against the thigh to optimize [...] Implant Name Type Inv. Item Serial No. Large Animal Veterinarian Lot No. LRB No. Used Action SHELL,ACETABULAR,TRIDENT,PSL,S ([id number]) (AUTOREQ) - [id number] IMPLANTS SHELL,ACETABULAR,TRIDENT,PSL,S ([id number]) (AUTOREQ) [employer] - [id number] Left 1 Implanted INSERT,TRIDENT,ALUMINA,0,DEG,3 ([id number]) (AUTOREQ) - [id number] IMPLANTS INSERT,TRIDENT,ALUMINA,0,DEG,3 ([id number]) (AUTOREQ) [employer] - [id number] Left 1 Implanted STEM,FEM,ACCOLADE,127,DEG,NECK ([id number]) (AUTOREQ) - [id number] IMPLANTS STEM,FEM,ACCOLADE,127,DEG,NECK ([id number]) (AUTOREQ) [employer] - [id number] Left 1 Implanted CABLE,SS,CRMP,[id number],STR ([id number]) - [id number] IMPLANTS CABLE,SS,CRMP,[id number],STR ([id number]) [facility] - [id number] Left 1 Implanted HEAD,FEM,ALUMINA,V40,-4X32MM ([id number]) (AUTOREQ) - [id number] IMPLANTS HEAD,FEM,ALUMINA,V40,-4X32MM ([id number]) (AUTOREQ) [employer] - 6109 [id number] Left 1 Implanted documented in this encounter Plan of Treatment Upcoming Encounters Date Type Department Care Team (Late st Contact Info) Description 08/05/2024 8:20 AM EST Office Visit Dermatology at [facility] [address] [place] [address] Charu Martin MD [facility] [place] [address] 11/16/2024 1:00 PM EST Office Visit General Surgery at [place] [phone] Paula Harris PA [facility] [address] 01/26/2025 9:50 AM EDT Appointment Mammography/[place] [address] Joan Deutsch APRN [facility] [address] 01/26/2025 10:30 AM EDT Office Visit General Surgery at [place] [phone] Joan Deutsch APRN [facility] [address] Pending Results Name Type Priority Associated Diagnoses [...] intervals supplied above were not validated at [facility]. Results from pediatric patients should be interpreted [...] Lab Nick Ervin MD CHEMISTRY ORDERABLES [facility] * (ABNORMAL) CBC (with Diff) (07/25/2012 [...] EDT Nick Ervin MD HEMATOLOGY ORDERABLE S [facility] * (ABNORMAL) Basic Metabolic Panel (non-fasting) (07/24/2012 3:53 AM EDT) [facility] Glucose 127 60 - 199 mg/dL CERNER MILLENNIUM Comment:Diabetes: >=200 mg/d L plus symptoms Blood Urea Nitrogen 16 8 - 18 mg/dL CERNER MILLENNIUM Creatinine 0.58(L) 0.70 - 1.20 mg/dL CERNER MILLENNIUM Comment: Please note that the pediatric reference intervals supplied above were not validated at [facility]. Results from pediatric patients should be interpreted [...] EDT Nick Ervin MD [facility]ATOLOGY ORDERABLE S [facility] * (ABNORMAL) Basic Metabolic Panel (non-fasting) (07/23/2012 4:36 AM EDT) Glucose 148 60 - 199 mg/dL CERNER MILLENNIUM Comment:Diabetes: >=200 mg/d L plus symptoms Blood Urea Nitrogen 14 8 - 18 mg/dL CERNER MILLENNIUM Creatinine 0.51(L) 0.70 - 1.20 mg/dL CERNER MILLENNIUM Comment: Please note that the pediatric reference intervals supplied above were not validated at [facility]. Results from pediatric patients should be interpreted [...] MD HEMATOLOGY ORDERABLE S VALERIE [facility] * XR pelvis 1 or [...] appearance of the post arthroplasty right hip. iNck Ervin MD IMG DX ORDERABLES * (ABNORMAL) [...] 6:30 PM EDT 07/22/2012 6:36 PM EDT iNck Ervin MD HEMATOLOGY ORDERABLE S [facility] * (ABNORMAL) CBC (with Diff) (07/22/2012 6:30 [...] Standard Deviation 42.0 35.0 - 46.0 fL [facility] RDW coefficient of variation 13.0 10.9 - 14.4 % VALERIE [facility] Mean Platelet Volume 10.8 9.0 - 12.0 fL [facility]IE [facility] Blood specimen (specimen) 07/22/2012 6:30 PM EDT 07/22/2012 6:36 PM EDT Narrative Resulting Agency Comment Spec In Lab Nick Ervin MD HEMATOLOGY ORDERABLE S [facility]IE [facility] * SURGICAL PATHOLOGY REPORT (07/22/2012 6:21 PM EDT) Surgical Pathology Report ? [facility] ? Provider: ?? NICK ERVIN ? Pt. Name: ?? DIAMOND GAMING ? Acc #: ?[id number] ?Pt. ? Col Date: ?? 07/22/2012 ?/Sex: [...] Primary Hip joint replacement by other means Rosacea documented in this encounter Administered Medications Inactive [...] on Sat07/22/12 at 1515, Until Sat07/22/12 at 2045 New Bag 07/22/2012 3:15 PM EDT 1 [...] EDT Given 07/23/2012 9:00 AM EDT multivitamin Atfw-Gx-HK-Min (THERAPEUTIC-M) 27-0.4 mg tablet 1 tablet 1 [...] Unit), Routine 0600 (Given - Provider: Morgan Maher RN)1445 (Given - Provider: Thao Gaona RN)2152 (Given - Provider: Joan Carballo RN) 0600 (Given - Provider: Lisa Bucio RN)1339 (Given - Provider: Marily Murphy, RN)2123 (Given - Provider: Mel Willett, [place]) 0539 (Given - Provider: Mel Willett, [place])1316 (Given - Provider: Marily Murphy, RN) anastrozole (ARIMIDEX) tablet 1 mg (CANCELED) 1 mg, Oral, DAILY, First dose on Sat07/23/12 at 0900, Until Discontinued, Recovery (Recovery-Hospital Unit), Routine 0900 (Given - Provider: Thao Gaona RN) 0831 (Given - Provider: Marily Murphy, RN) 0851 (Given - Provider: Marily Murphy, [...] 0851 (Given - Provider: Marily [place], [place]) citalopram (celeXA) tablet 40 mg (CANCELED) 40 [...] RN) 0852 (Given - Provider: Marily [place], [place]) multivitamin Wxpl-Ya-MB-Min (THERAPEUTIC-M) 27-0.4 mg tablet 1 tablet (CANCELED) [...] Approved indication of hip replacement DVT prophylaxis 0900 (Given - Provider: Thao Gaona RN) 0832 (Given - Provider: Marily Murphy RN) 0852 (Given - Provider: Marily Murphy RN) scopolamine (TRANSDERM SCOP) patch REMOVAL (CANCELED)(Linked Group 1) Transdermal, EVERY 72 HOURS, First dose on Sat07/25/12 at 1500, Until Discontinued, Remove Scopolamine Patch 1518 (Given - Provider: Marily Murphy RN) scopolamine (TRANSDERM-SCOP) 1.5 mg patch 1 patch(Linked Group 1) 1 patch, Transdermal, EVERY 72 HOURS, First dose on Sat07/22/12 at 1515, Until Discontinued, Routine 1518 (Given - Provider: Marily Murphy RN) senna-docusate [...] (Recovery-Hospital Unit), Routine 0900 (Given - Provider: Taho Gaona RN)2015 (Given - Provider: Joan Carballo RN) 0833 (Given - Provider: Marily Murphy RN)2122 (Given - Provider: Mel Willett RN) 0852 (Given - Provider: Marily Murphy RN)2100 (Due) sodium chloride 0.9 % flush 5 mL (CANCELED) 5 mL, Intravenous, EVERY 12 HOURS, First dose on Sat07/22/12 at 2115, Until Discontinued, Recovery (Recovery-Hospital Unit) 0915 (Given - Provider: Thao Gaona RN)2015 (Given - Provider: Joan Carballo RN) 0833 (Given - Provider: Marily Murphy RN)2122 (Given - Provider: Mel Willett RN) 0852 (Given - Provider: Marily Murphy RN)2100 (Due - Provider: Morgan Smith [facility]) sodium phosphates (FLEET) 19-7 gram/118 mL [...] RN) 2099 (Due - Provider: Morgan Smith [facility]) Continuous Medication Order 07/23/2012 07/24/2012 07/25/2012 lactated ringers infusion (CANCELED) 125 mL/hr, Intravenous, CONTINUOUS, Starting on Sat07/22/12 at 1845, Until Sat07/23/12 at 0740, Recovery (Recovery-Hospital Unit) 0257 (New Bag - Provider: Morgan Maher RN) PRN Medication Order 07/23/2012 07/24/2012 07/25/2012 [...] Routine 0517 (Not Given - Provider: Morgan Maher RN - Reason: Entered in Error)0530 (Given - Provider: Morgan Maher, RN)1410 (Given - Provider: Thao Gaona RN) 0850 (Given - Provider: Marily Murphy RN) OXYcodone (ROXICODONE) immediate release tablet 10 mg (CANCELED)(Linked Group 3) 10 mg, Oral, EVERY 4 HOURS PRN, Starting on Sat07/22/12 at 1824, Until Sat07/25/12 at 1150, Pain, moderate pain, For Moderate pain. Do not exceed 15 mg in 4 hours. If pain not relieved, call provider., Recovery (Recovery-Hospital Unit), Routine 0133 (See Alternative - Provider: Morgan Maher RN)0452 (Given - Provider: Morgan Maher RN)0935 (Given - Provider: Thao Gaona RN)1850 (Given - Provider: Thao Gaona RN) 0122 (Given - Provider: Lisa Bucio, [place])0518 (Given - Provider: Lisa Bucio, RN)1212 (Given - Provider: Marily Murphy, [place])1659 [...] RN)2122 (See Alternative - Provider: Mel Willett, [place]) 0156 (See Alternative - Provider: Mel Willett, [place])0851 (See Alternative - Provider: Marily Murphy, RN) [...] Routine documented in this encounter Care Teams Swage Tender Relationship Specialty Start Date End Date Mariluz Watts MD [address] [place] [address] [address] [place] [address] PCP - General 08/22/10 documented as of this encounter
--- OUTSIDE RECORDS SUMMARY | 2024-07-02 16:38 | XMS_ITS | Encounter Summary ---
Author Organization [facility] [place] [address] Care Team Providers Care Universal Winding Machine Operator Name Role Phone Mariluz Watts MD Primary Care Provider [phone] Encounter Details Date Type Department Care Team (Late st Contact Info) Description 09/03/2012 Orders [place] [address] Lev Garg MD [facility] [place] [address] Hand pain (Primary Dx) Social History Tobacco [...] at [facility] [address] [place] [address] Charu Martin MD [facility] DR [place] [address] 11/16/2024 1:00 PM EST Office [place] [phone] Paula Harris PA [facility] [place] [address] 01/26/2025 9:50 AM EDT Appointment Mammography/[place] [address] Joan Deutsch [facility] [place] [address] 01/26/2025 10:30 AM EDT Office [place] [phone] Joan Deutsch [facility] [place] [address] documented as of this encounter Results * [...] limb documented in this encounter Care Teams Universal Winding Machine Operator Relationship Specialty Start Date End Date Mariluz Watts MD [address] [place] [address] PCP - General 08/22/10 documented as of this encounter
--- OUTSIDE RECORDS SUMMARY | 2024-07-02 16:38 | XMS_ITS | Encounter Summary ---
Author Organization [facility] [place] [address] Care Team Providers Care Skilled Labor Name Role Phone Mariluz Watts MD Primary Care Provider [phone] Encounter Details Date Type Department Care Team (Latest Contact Info) Description 08/18/2012 11:20 AM EST - 08/18/2012 11:59 PM [facility] Hospital Encounter XRay at [address] [place] [address] DJD (degenerative joint disease) of hip Social [...] 8:20 AM EST Office Visit Dermatology at [facility] [address] [place] [address] Charu Martin MD [facility] [place] [address] 11/16/2024 1:00 PM EST Office Visit [place] [address] Paula Harris PA [facility] [place] [address] 01/26/2025 9:50 AM EDT Appointment Mammography/[place] [address] Joan Deutsch, [facility] [place] [place] [address] 01/26/2025 10:30 AM EDT Office Visit [place] [address] Joan Deutsch, [facility] [place] [address] documented as of this encounter Procedures Procedure [...] Unchanged appearance of bilateral total hip arthroplasties. Authorizing Provider Result Froy Ervin MD IMG DX ORDERABLES documented in this encounter Visit Diagnoses Diagnosis DJD (degenerative joint disease) of hip Osteoarthrosis, unspecified whether generalized or localized, pelvic region and thigh documented in this encounter Care Teams Skilled Labor Relationship Specialty Start Date End Date Mariluz Watts MD [address] [facility] [place] [address] PCP - General 08/22/10 documented as of this encounter
--- OUTSIDE RECORDS SUMMARY | 2024-07-02 16:39 | XMS_ITS | Encounter Summary ---
Author [place] [address] Care Team Providers Care Cashier General Name Role Phone Mariluz Watts MD Primary Care Provider [phone] Encounter Details Date Type Department Care Team (Late Contact Info) Description 07/17/2012 Anti-Coag Telephone [place] [address] Kian Ervin MD [address] [place] [address] Social History Tobacco Use Types Packs/Day Years [...] 8:20 AM EST Office Visit Dermatology at [facility] [address] [place] [address] Charu Martin MD [facility] [place] [address] 11/16/2024 1:00 PM EST Office Visit [place] [address] Paula Harris PA [facility] [place] [address] 01/26/2025 9:50 AM EDT Appointment Mammography/[place] [address] Joan Deutsch [facility] [place] [address] 01/26/2025 10:30 AM EDT Office Visit General Surgery at [place] [phone] Joan Deutsch [facility] [place] [address] documented as of this encounter Visit Diagnoses Not on filedocumented in this encounter Care Teams Cashier General Relationship Specialty Start Date End Date Mariluz Watts MD [address] [place] [address] [address] [facility] 1 [place] [address] PCP - General 08/22/10 documented as of this encounter
--- OUTSIDE RECORDS SUMMARY | 2024-07-02 16:39 | XMS_ITS | Encounter Summary ---
[place] [address] Care Team Providers Care Project Buyer Name Role Phone Mariluz Watts MD Primary Care Provider [phone] Reason for Referral * Physical Therapy (Routine) - Complete - Patient Will Schedule External Appt Specialty Diagnoses / Procedures Referred By John lyons Referred To Contact Physical Therapy Diagnoses DJD (degenerative joint disease) of hip Kian Ervin MD [address] [place] [address] Referral ID Status Reason Start Date Expiration Date Visits Requested Visits Authorized [id number] Complete - Patient Will Schedule External Appt Evaluate and Treat 02/01/2012 07/30/2012 12 12 Encounter Details Date Type Department Care Team (Late st Contact Info) Description 01/24/2012 Orders [place] [address] Kian Ervin MD [address] [place] [address] S/P hip replacement; Left knee [...] 8:20 AM EST Office Visit Dermatology at [facility] [address] [place] [address] Charu Martin MD [facility] [place] [address] 11/16/2024 1:00 PM EST Office Visit [place] [address] Paula Harris PA [facility] [place] [address] 01/26/2025 9:50 AM EDT Appointment Mammography/[place] [address] Joan Deutsch APRN [facility] [place] [place] [address] 01/26/2025 10:30 AM EDT Office Visit [place] [phone] Joan Deutsch APRN [facility] [place] [place] [address] Scheduled Referrals Name Type Priority Associated Diagnoses [...] alignment in the weight bearing position. Mechanical Donie: ??The patient is status post right total [...] quadriceps tendon or in the joint bursa. Ninety Six view shows moderate lateral facet narrowing, right greater than left. Schuss views demonstrate clgaefoe-qz-pdvbmk left medial compartmental narrowing and mild osteophytosis. ?? PELVIS AND HIPS: COMPARISON: ??12/23/08. ?? FINDINGS: ??Patient is status post right noncemented hip arthroplasty. No heterotopic bone formation. No obvious signs of loosening or infection. Mild left hip osteoarthritis. The sacroiliac joints are within normal limits. No labral-type calcifications detected. ?? Procedure Note Devaughn Barebr MD - 02/12/2012 STANDING KNEE ALIGNMENT AND [...] extremity alignment inthe weight bearing position. Mechanical Donie: The patient is status post right total [...] the quadriceps tendon or in the jointbursa. Ninety Six view shows moderate lateral facet narrowing, right greater thanleft. Schuss views demonstrate oldvfqyd-al-jcqklr left medial compartmentalnarrowing and mild osteophytosis. PELVIS [...] leg documented in this encounter Care Teams Project Buyer Relationship Specialty Start Date End Date Mariluz Watts MD [address] [place] [address] PCP - General 08/22/10 documented as of this encounter
--- OUTSIDE RECORDS SUMMARY | 2024-07-02 16:39 | XMS_ITS | Encounter Summary ---
Author Organization [facility] [place] [address] Care Team Providers Care Carpet Layer Name Role Phone Mariluz Watts MD Primary Care Provider [phone] Reason for Referral * Physical Therapy (Routine) - Complete - Patient Will Schedule External Appt Specialty Diagnoses / Procedures Referred By John lyons Referred To Contact Physical Therapy Diagnoses DJD (degenerative joint disease) of hip Ralph Ambrocio PA [facility] [place] [address] Referral ID Status Reason Start Date Expiration Date Visits Requested Visits Authorized [id number] Complete - Patient Will Schedule External Appt Evaluate and Treat 02/01/2012 07/30/2012 12 12 Encounter Details Date Type Department Care Team (Late st Contact Info) Description 02/01/2012 Orders [place] [address] Ralph Ambrocio PA [facility] [place] [address] DJD (degenerative joint disease) of [...] 8:20 AM EST Office Visit Dermatology at [facility] [address] [place] [address] Charu Martin MD [facility] [place] [address] 11/16/2024 1:00 PM EST Office [place] [phone] Paula Harris PA [facility] [place] [address] 01/26/2025 9:50 AM EDT Appointment Mammography/[place] [phone] Joan Deutsch APRN [facility] [place] [address] 01/26/2025 10:30 AM EDT Office Visit [place] [address] Joan Deutsch APRN [facility] [place] [address] Scheduled Referrals Name Type Priority Associated Diagnoses Orde r Schedule REFERRAL TO PHYSICAL THERAPY Outpatient Referral Routine DJD (degenerative joint disease) of hip Ordered: 02/01/2012 documented as of this encounter Visit Diagnoses Diagnosis DJD (degenerative joint disease) of hip- Primary Osteoarthrosis, unspecified whether generalized or localized, pelvic region and thigh documented in this encounter Care Teams Carpet Layer Relationship Specialty Start Date End Date Mariluz Watts MD [address] [place] [address] PCP - General 08/22/10 documented as of this encounter
--- OUTSIDE RECORDS SUMMARY | 2024-07-02 16:39 | XMS_ITS | Encounter Summary ---
Author Organization [facility] [place] [address] Care Team Providers Care Leather Whitener Name Role Phone Mariluz Watts MD Primary Care Provider [phone] Encounter Details Date Type Department Care Team (Latest Contact Info) Description 01/25/2012 2:17 PM EDT - 01/25/2012 11:59 PM EDT Hospital Encounter XRay at [address] [place] [address] S/P hip replacement; Left knee pain Social [...] 8:20 AM EST Office Visit Dermatology at [address] [place] [address] Charu Martin MD [facility] [place] [address] 11/16/2024 1:00 PM EST Office [place] [address]-1000 Paula Harris PA [facility] [place] [address] 01/26/2025 9:50 AM EDT Appointment Mammography/[place] [address]-1000 Joan Deutsch APRN [facility] [place] [address] 01/26/2025 10:30 AM EDT Office [place] [address]1000 Joan Deutsch APRN [facility] [place] [address] documented as of this encounter Procedures Procedure [...] alignment in the weight bearing position. Mechanical Eldena: ??The patient is status post right total [...] quadriceps tendon or in the joint bursa. [place] view shows moderate lateral facet narrowing, right greater than left. Schuss views demonstrate jpligych-qz-jipnyl left medial compartmental narrowing and mild osteophytosis. [...] extremity alignment inthe weight bearing position. Mechanical Eldena: The patient is status post right total [...] the quadriceps tendon or in the jointbursa. [place] view shows moderate lateral facet narrowing, right greater thanleft. Schuss views demonstrate uecicjwu-zy-effxqg left medial compartmentalnarrowing and mild osteophytosis. PELVIS [...] leg documented in this encounter Care Teams Leather Whitener Relationship Specialty Start Date End Date Mariluz Watts MD [address] [place] [address] PCP - General 08/22/10 documented as of this encounter
--- OUTSIDE RECORDS SUMMARY | 2024-07-02 16:39 | XMS_ITS | Encounter Summary ---
Author Organization [facility] [place] [address] Care Team Providers Care Produce Inspector Name Role Phone Mariluz Watts MD Primary Care Provider [phone] Encounter Details Date Type Department Care Team (Latest Contact Info) Description 07/08/2012 1:43 PM EDT - 07/08/2012 11:59 PM EDT Hospital Encounter XRay at [address] [place] [address] CLINIC, Kian Stone MD [address] [place] [address] DJD (degenerative joint disease) of hip Discharge [...] [facility] [address] [place] [address] Charu Martin MD [facility] [place] [address] 11/16/2024 1:00 PM EST Office [place] [address] Paula Harris, MORENA [facility] [place] [address] 01/26/2025 9:50 AM EDT Appointment Mammography/[place] [phone] Joan Deutsch, GE [facility] [address] 01/26/2025 10:30 AM EDT Office [place] [address] Joan Deutsch, GE [facility] [place] [address] documented as of this encounter Procedures Procedure [...] surgical clips. Impression No active cardiopulmonary pathology. Kian Ervin MD IMG DX ORDERABLES documented in this encounter Visit Diagnoses Diagnosis DJD (degenerative joint disease) of hip Osteoarthrosis, unspecified whether generalized or localized, pelvic region and thigh documented in this encounter Care Teams Produce Inspector Relationship Specialty Start Date End Date Mariluz Watts MD [address] [place] [address] PCP - General 08/22/10 documented as of this encounter
--- OUTSIDE RECORDS SUMMARY | 2024-07-02 16:39 | XMS_ITS | Encounter Summary ---
[place] [address] Care Team Providers Care Leno Sewer Name Role Phone Mariluz Watts MD Primary Care Provider [phone] Reason for Visit * Reason Onset Date Comments Other 04/01/2012 Disability Paper work/[facility] Encounter Details Date Type Department Care Team (Late st Contact Info) Description 04/01/2012 Telephone Hematology [place] [address] Gemini Lawrence RN [facility] Social History Tobacco Use Types Packs/Day [...] RN - 04/01/2012 8:59 AM EDT [facility] requested paperwork to evaluate a claim for Long-term Disability All records from 11/02/2011 copied. [facility]a Disclosure Release form signed by patient. No genetic information included. Medical records mailed to: [employer] [place] Disability Claim Office [facility] [address] [address] [place] [address] Copy filed under Disabilty. documented in this encounter Plan of Treatment Upcoming Encounters Date Type Department Care Team (Late st Contact Info) Description 08/05/2024 8:20 AM EST Office Visit Dermatology at [address] [address] Charu Martin MD [facility] DR [place] [address] 11/16/2024 1:00 PM EST Office Visit [place] [phone] Paula Harris PA [facility] [place] [address] 01/26/2025 9:50 AM EDT Appointment Mammography/[place] [address]-1000 Joan Deutsch APRN [facility] [place] [address] 01/26/2025 10:30 AM EDT Office Visit [place] [address]-1000 Joan Deutsch APRN [facility] [place] [address] documented as of this encounter Visit Diagnoses Not on filedocumented in this encounter Care Teams Leno Sewer Relationship Specialty Start Date End Date Mariluz Watts MD [address] [place] [address] [address] [place] [address] PCP - General 08/22/10 documented as of this encounter
--- OUTSIDE RECORDS SUMMARY | 2024-07-02 16:39 | XMS_ITS | Encounter Summary ---
Author Organization [facility] [place] [address] Care Team Providers Care Experimental Machinist Name Role Phone Mariluz Watts MD Primary Care Provider [phone] Reason for Visit * Reason Onset Date Comments Medication Refill 04/04/2012 Encounter Details Date Type Department Care Team (Late st Contact Info) Description 04/04/2012 [place] [address] Chayo Willingham MD [facility] [address] [place] [place] [address] Rosacea Social History Tobacco Use Types Packs/Day [...] weekend. You can contact the pt at [phone]. She would like the RX sent to the [facility]. Thanks Debbi documented in this encounter Plan of Treatment Upcoming Encounters Date Type Department Care Team (Late st Contact Info) Description 08/05/2024 8:20 AM EST Office Visit Dermatology at [address] [place] [address] Charu Martin MD [facility] [place] [address] 11/16/2024 1:00 PM EST Office [place] [address]-1000 Paula Harris PA [facility] [place] [place] [address] 01/26/2025 9:50 AM EDT Appointment Mammography/[place] [address] Joan Deutsch APRN [facility] [place] [place] [address] 01/26/2025 10:30 AM EDT Office [place] [address] Joan Deutsch, GE [facility] [place] [address] documented as of this encounter Visit Diagnoses Diagnosis Rosacea documented in this encounter Care Teams Experimental Machinist Relationship Specialty Start Date End Date Mariluz Watts MD [address] [place] [address] PCP - General 08/22/10 documented as of this encounter
--- OUTSIDE RECORDS SUMMARY | 2024-07-02 16:39 | XMS_ITS | Encounter Summary ---
[place] [address] Care Team Providers Care Senior Manufacturing Test Engineer Name Role Phone Mariluz Watts MD Primary Care Provider [phone] Reason for Visit * Reason Comments Left Hip Pain Aftercare Of Tjr SP R ARSLAN DOS 02/2005 Left Knee Pain Encounter Details Date Type Department Care Team (Late st Contact Info) Description 01/25/2012 2:35 PM EDT Office [place] [address] Nick Ruiz MD [address] [place] [address] Hip pain (Primary Dx); S/P hip replacement [...] Procedure Performed: Right total hip arthroplasty, cementless, mxyhkrs-nc-uxpoeyp Components Used: Nicole Trident 52 shell outer [...] quadriceps tendon or in the joint bursa. [place] view shows moderate lateral facet narrowing, right greater than left. Schuss views demonstrate nebrcptb-cu-jwkkkq left medial compartmental narrowing and mild osteophytosis. [...] AM EST Office Visit Dermatology at [address] [address] Charu Martin MD [facility] [place] [address] 11/16/2024 1:00 PM EST Office [place] [address]-1000 Paula Harris PA [facility] [place] [address] 01/26/2025 9:50 AM EDT Appointment Mammography/[place] [address]-1000 Joan Deutsch APRN [facility] [place] [address] 01/26/2025 10:30 AM EDT Office [place] [address]-1000 Joan Deutsch APRN [facility] [place] [address] documented as of this encounter Results * XR Fluoro injection FL drain large JT (01/31/2012 2:13 PM EDT) Anatomical Region Laterality Modality N/A Radiographic Crystal ging 01/31/2012 2:13 PM EDT Narrative 02/04/2012 2:11 PM EDT ?VIR ?? PROCEDURE NOTE ?Name: ?? [employer] ? Date ?? of : 1945 ?Procedure: ?? LEFT HIP INJECTION UNDER FLUOROSCOPY ? ACC#: ?? [id number] ?Indication ?? for Procedure: Left hip pain, [...] fluoroscopy. ?Resident/Fellow: ?? Dr. Devaughn Mcdonough (Pager #[phone]) ? Attending: ?? Dr. Marly Torres ?ATTENDING [...] 1945 Procedure: LEFT HIP INJECTION UNDERFLUOROSCOPY ACC#: [id number] Indication for Procedure: Left hip pain, degenerative [...] jointinjection under fluoroscopy. Resident/Fellow: Dr. Devaughn Mcdonough (Pager#[phone]) Attending: Dr. Marly Torres ATTENDING ATTESTATION I, [...] documented in this encounter Care Teams Senior Manufacturing Test Engineer Relationship Specialty Start Date End Date Mariluz Watts MD [address] [place] [address] PCP - General 08/22/10 documented as of this encounter
--- OUTSIDE RECORDS SUMMARY | 2024-07-02 16:39 | XMS_ITS | Encounter Summary ---
[place] [address] Care Team Providers Care Ultrasound Technologist Sonographer Name Role Phone Mariluz Watts MD Primary Care Provider [phone] Reason for Visit * Reason Comments Follow Up Surgery Encounter Details Date Type Department Care Team (Late st Contact Info) Description 11/01/2011 1:00 PM EST Follow-Up [place] [address] Bella Ly APRN [facility] [place] [place] [address] Breast cancer, stage 2 (Primary Dx) Discharge [...] carcinoma with lobular features Tumor Grade: Intermediate Lfvtqj-Dyvpv-Tyjyicjyev Score: 7 Tubular Differentiation: 3 Mitotic Rate: [...] sentinel nodes: 2 (Specimen A - Right [place] node) No. positive for carcinoma: 1 (H&E) [...] 8:20 AM EST Office Visit Dermatology at [address] [place] [address] Charu Martin MD [facility] [place] [address] 11/16/2024 1:00 PM EST Office Visit [place] [address] Paula Harris PA [facility] [place] [place] [address] 01/26/2025 9:50 AM EDT Appointment Mammography/[place] [address] Joan Deutsch, [facility] [place] [address] 01/26/2025 10:30 AM EDT Office Visit [place] [address]-1000 Joan Deutsch, [facility] [place] [address] documented as of this encounter Visit Diagnoses Diagnosis Breast cancer, stage 2- Primary Malignant neoplasm of breast (female), unspecified site documented in this encounter Care Teams Ultrasound Technologist Sonographer Relationship Specialty Start Date End Date Mariluz Watts MD [address] [place] [address] [address] [facility] [address] [place] [address] PCP - General 08/22/10 documented as of this encounter
--- OUTSIDE RECORDS SUMMARY | 2024-07-02 16:39 | XMS_ITS | Encounter Summary ---
[place] [address] Care Team Providers Care Blood Bank Attendant Name Role Phone Mariluz Watts MD Primary Care Provider [phone] Encounter Details Date Type Department Care Team (Late st Contact Info) Description 07/17/2012 Anti-Coag Telephone [place] [address] Kian Ervin MD [address] [place] [address] Social History Tobacco Use Types Packs/Day Years [...] 8:20 AM EST Office Visit Dermatology at [place] [address] [place] [address] Charu Martin MD [facility] [place] [address] 11/16/2024 1:00 PM EST Office Visit General Surgery at [place] [phone] Paula Harris PA [facility] [place] [address] 01/26/2025 9:50 AM EDT Appointment Mammography/DXA at [place] [phone] Joan Deutsch APRN [facility] [place] [address] 01/26/2025 10:30 AM EDT Office Visit General Surgery at [place] [phone] Joan Deutsch PIPELINE WELDER [facility] [place] [address] documented as of this encounter Visit Diagnoses Not on filedocumented in this encounter Care Teams Blood Bank Attendant Relationship Specialty Start Date End Date Mariluz Watts MD [address] [place] [address] [address] [place] [address] PCP - General 08/22/10 documented as of this encounter
--- OUTSIDE RECORDS SUMMARY | 2024-07-02 16:39 | XMS_ITS | Encounter Summary ---
[place] [address] Care Team Providers Care Crusher Tender Name Role Phone Mariluz Watts MD Primary Care Provider [phone] Reason for Visit * Reason Comments Left Hip Pain Encounter Details Date Type Department Care Team (Late st Contact Info) Description 07/21/2012 8:35 AM EDT Office [place] [address] [place] [address] Other specified pre-operative examination; Hip pain Discharge [...] 8:20 AM EST Office Visit Dermatology at [place] [address] [place] [address] Charu Martin MD [facility] [place] [address] 11/16/2024 1:00 PM EST Office [place] [address] Paula Harris PA [facility] [place] [address] 01/26/2025 9:50 AM EDT Appointment Mammography/[place] [address]-1000 Joan Deutsch APRN [facility] [place] [address] 01/26/2025 10:30 AM EDT Office [place] [address]-1000 Joan Deutsch APRN [facility] [place] [address] documented as of this encounter Visit Diagnoses Diagnosis Other specified pre-operative examination Hip pain Pain in joint, pelvic region and thigh documented in this encounter Care Teams Crusher Tender Relationship Specialty Start Date End Date Mariluz Watts MD [address] [place] [address] PCP - General 08/22/10 documented as of this encounter
--- OUTSIDE RECORDS SUMMARY | 2024-07-02 16:39 | XMS_ITS | Encounter Summary ---
[place] [address] Care Team Providers Care Charge Preparation Technician Name Role Phone Mariluz Watts MD Primary Care Provider [phone] Reason for Visit * Reason Onset Date Comments Medication Refill 08/16/2011 Encounter Details Date Type Department Care Team (Late st Contact Info) Description 08/16/2011 Refill [place]emat[place] [address] Abrahan Merlos MD [facility] DR HEMATOLOGY/[place] [address] Social History Tobacco Use Types Packs/Day Years [...] Nhi Chadwick APRN. Patient changing pharmacy to [facility]. Patient requesting medication be mailed to to her home address. [facility] are aware. documented in this encounter Plan of Treatment Upcoming Encounters Date Type Department Care Team (Late st Contact Info) Description 08/05/2024 8:20 AM EST Office Visit Dermatology at [facility] [address] [place] [address] Charu Martin MD [facility] [place] [address] 11/16/2024 1:00 PM EST Office [place] [address] Paula Harris PA [facility] [place] [place] [address] 01/26/2025 9:50 AM EDT Appointment Mammography/[place] [address] Joan Deutsch APRN [facility] [place] [address] 01/26/2025 10:30 AM EDT Office [place] [address]-1000 Joan Deutsch APRN [facility] [place] [address] documented as of this encounter Visit Diagnoses Not on filedocumented in this encounter Care Teams Charge Preparation Technician Relationship Specialty Start Date End Date Mariluz Watts MD [address] [place], [place] [address]Y [address] [place] [address] PCP - General 08/22/10 documented as of this encounter
--- OUTSIDE RECORDS SUMMARY | 2024-07-02 16:39 | XMS_ITS | Encounter Summary ---
Author Organization [facility] [place] [address] Care Team Providers Care Bucket Chucker Name Role Phone Mariluz Watts MD Primary Care Provider Reason for Visit * Reason Comments Rosacea Encounter Details Date Type Department Care Team (Late st Contact Info) Description 05/02/2012 3:30 PM EDT [place] [address] Chayo Willingham MD [facility] [place] [address] Rosacea (Primary Dx); Sebaceous hyperplasia Discharge Disposition: [...] concerns. Chayo Willingham MD Resident in Dermatology [facility] Patient seen and evaluated Saira Fernandez MD Section of Dermatology [facility] documented in this encounter Plan of Treatment Upcoming Encounters Date Type Department Care Team (Late st Contact Info) Description 08/05/2024 8:20 AM EST Office Visit Dermatology at [address] [place] [address] Charu Martin MD [facility] [place] [address] 11/16/2024 1:00 PM EST Office Visit General Surgery at [place] [phone] Paula Harris PA [facility] [place] [address] 01/26/2025 9:50 AM EDT Appointment Mammography/[place] [address] Joan Deutsch APRN [facility] [place] [address] 01/26/2025 10:30 AM EDT Office [place] [address]-1000 Joan Deutsch APRN [facility] [place] [address] documented as of this encounter Visit Diagnoses Diagnosis Rosacea- Primary Sebaceous hyperplasia Other specified disease of sebaceous glands documented in this encounter Care Teams Bucket Chucker Relationship Specialty Start Date End Date Mariluz Watts MD [address] [place] [address] [address] [place] [address] PCP - General 08/22/10 documented as of this encounter
--- OUTSIDE RECORDS SUMMARY | 2024-07-02 16:39 | XMS_ITS | Encounter Summary ---
Author Organization [facility] [place] [address] Care Team Providers Care Supervisor Dairy Sanitation Name Role Phone Mariluz Watts MD Primary Care Provider [phone] Encounter Details Date Type Department Care Team (Latest Contact Info) Description 02/29/2012 11:00 AM EDT - 02/29/2012 2:14 PM EDT Hospital En[place] [address] Gallito [place] MD [facility] [place] [address] Discharge Disposition: Home Social History Tobacco Use [...] - 02/29/2012 1:01 PM EDT Please call [phone], before 5pm with problems, questions or concerns, after 5pm call the Hospital at [phone] and ask to speak to the Maintenance Parts Technician rehabilitation therapy aide and the liner machine operator helper will contactthat person for you. Discharge instructions [...] * COLONOSCOPY: WHAT TO EXPECT AT HOME (BULGARIAN) documented in this encounter Medications at Time [...] 8:20 AM EST Office Visit Dermatology at [facility] [address] [place] [address] Charu Martin MD [facility] [place] [address] 11/16/2024 1:00 PM EST Office [place] [address] Paula Harris PA [facility] [place] [address] 01/26/2025 9:50 AM EDT Appointment Mammography/[place] [address] Joan Deutsch, GE [facility] SURGERY [place], [place] [id number] 01/26/2025 10:30 AM EDT Office [place] [address] Joan Deutsch MANAGER CONVENTION [facility] [place] [address] documented as of this encounter Procedures Procedure Name Priority Date/Time Associated Diagnosis Comments COLONOSCOPY Routine 02/29/2012 12:01 PM EDT COLONOSCOPY, DIAGNOSTIC (WRVU 3.26) 02/29/2012 11:39 AM EDT 5YR RESCOPE documented in this encounter Results * COLONOSCOPY (02/29/2012 12:01 PM EDT) COLONOSCOPY [facility] Endoscopy Patient Name: Diamond Gaming ? Procedure Date: 02/29/2012 12:01 PM ? Date of : 1945 ? Age: 66 ? Order #: [id number] ? Procedure: ? Colonoscopy Indications: ? Follow-up for history of adenomatous ? polyps in the colon Providers: ? Gallito [place] MD, Anu Schafer, ? [place], Margret Shen, Reforestation Worker Referring : ?Mariluz Watts MD Medicines: ? [...] Mariluz Watts MD GENERAL SURGICAL OR DERABLES Performing Organization Address City/State/[facility] Co de Phone Number PROVATION documented in [...] Trudi Steele RN)[phone] (Given - Provider: Trudi L Little, RN) documented in this encounter Care Teams Supervisor Dairy Sanitation Relationship Specialty Start Date End Date Mariluz Watts MD [address] [place] [address] PCP - General 08/22/10 documented as of this encounter
--- OUTSIDE RECORDS SUMMARY | 2024-07-02 16:39 | XMS_ITS | Encounter Summary ---
[place] [address] Care Team Providers Care Fugitive Investigator Name Role Phone Mariluz Watts MD Primary Care Provider [phone] Encounter Details Date Type Department Care Team (Late st Contact Info) Description 11/01/2011 11:30 AM EST - 11/01/2011 11:59 PM [facility] Hospital [place] [address] Social History Tobacco Use Types Packs/Day Years [...] 8:20 AM EST Office Visit Dermatology at [place] [address] [place] [address] Charu Martin MD [facility] [place] [address] 11/16/2024 1:00 PM EST Office [place] [address] Paula Harris PA [facility] [place] [address] 01/26/2025 9:50 AM EDT Appointment Mammography/[place] [address] Joan Deutsch APRN [facility] [place] [address] 01/26/2025 10:30 AM EDT Office [place] [address] Joan Deutsch APRN [facility] [place] [address] documented as of this encounter Procedures Procedure [...] on filedocumented in this encounter Care Teams Fugitive Investigator Relationship Specialty Start Date End Date Mariluz Watts MD [address] [facility] [address] [place] [address] PCP - General 08/22/10 documented as of this encounter
--- OUTSIDE RECORDS SUMMARY | 2024-07-02 16:39 | XMS_ITS | Encounter Summary ---
[place] [address] Care Team Providers Care Office Bookkeeper Name Role Phone Mariluz Watts MD Primary Care Provider Encounter Details Date Type Department Care Team (Latest Contact Info) Description 07/08/2012 12:34 PM EDT - 07/08/2012 11:59 PM EDT [place] [address] Nick Ervin MD [address] [place] [address] DJD (degenerative joint disease) of hip Discharge [...] Visit Dermatology at [facility] [address] [place] [address] [address] Charu Martin MD [facility] [place] [address] 11/16/2024 1:00 PM EST Office Visit [place] [address] Paula Harris PA [facility] [place] [address] 01/26/2025 9:50 AM EDT Appointment Mammography/[place] [address] Joan Deutsch APRN [facility] [place] [address] 01/26/2025 10:30 AM EDT Office Visit [place] [address] Joan Deutsch [facility] [place] [address] documented as of this encounter Procedures Procedure [...] GAMING ?Ordered By: NICK ERVIN ? MR#: [id number] ?LOC: ??4V ? /Sex: ??1945 (66 years), [...] Comment Spec In Lab Nick Ervin MD MICROBIOLOGY - GENER AL ORDERABLES CERNER [...] Urine Dipstick Clear Clear CERNER MILLENNIUM Specific [place] Urine Automated 1.017 1.002 - 1.030 CERNER MILLENNIUM Color, Urine Dipstick Yellow Yellow CERNER MILLENNIUM RBC, Urine <1 0 - 4 /HPF CERNER MILLENNIUM WBC, Urine 1 0 - 5 /HPF CERNER MILLENNIUM Urine specimen (specimen) 07/08/2012 1:07 PM EDT 07/08/2012 1:21 PM EDT Narrative Resulting Agency Comment Spec In Lab Nick Ervin MD URINE ORDERABLES [facility]ERRIGO DYERENNI[facility] * DIFFERENTIAL, AUTOMATED (07/08/2012 12:50 PM EDT) Neutrophil % 61.1 34.0 - 71.0 % CERNER MILLENNIUM Neutrophil Absolute 3.83 1.50 - 6.30 x10(3)/mcL [...] Absolute 0.0 0.0 - 0.2 x10(3)/mcL CERNER MILLENNIUM Immature Gran % 0.20 0.00 - 0.66 % CERNER MILLENNIUM Comment: Immature granulocytes(IG's)percentage and absolute count will include metamyelocytes, myelocytes, and promyelocytes. Blood smears from CBCs yielding IG's will be scanned manually for concordance. If this scan disagrees with the automated IG or if promyelocytes are noted, a manual differential will be performed. Immature Gran Absolute 0.01 0.00 - 0.05 x10(3)/mcL CERNER MILLENNIUM Blood specimen (specimen) 07/08/2012 12:50 PM EDT 07/08/2012 1:21 PM EDT Nick Ervin MD HEMATOLOGY ORDERABLE S CERRIGO MAYERIUM * ANTIBODY SCREEN (07/08/2012 12:50 PM EDT) Pathologist [facility] Ab Screen Interp Negative [facility] Expires at [id number] on: [id number] [facility] Blood specimen (specimen) 07/08/2012 12:50 PM EDT 07/08/2012 1:23 PM EDT Narrative Resulting Agency Comment Spec In Lab Nick Ervin MD BLOOD BANK LAB ORDER SALVATORE Performing Organization Address City/[facility] Co de Phone Number [facility] * ABO/RH TYPING (07/08/2012 12:50 PM EDT) [facility] ABORH Type O Neg [facility] Blood specimen (specimen) 07/08/2012 12:50 PM EDT 07/08/2012 1:23 PM EDT Narrative Resulting Agency Comment Spec In Lab Nick Ervin MD BLOOD BANK LAB ORDER SALVATORE Performing Organization Address [facility] de Phone Number [facility] * Hemoglobin A1c (07/08/2012 12:50 PM EDT) [facility] Hemoglobin A1c 5.5 4.3 - 6.1 % [facility] Estimated Average Glucose 111 mg/dL [facility] Comment: eAG equivalents for HbA1c percentages: [...] into estimated average glucose values. ??Diabetes Care 2008:31(8):2976-0155. Blood specimen (specimen) 07/08/2012 12:50 PM EDT 07/08/2012 1:21 PM EDT Narrative Resulting Agency Comment Spec In Lab Authorizing Provider Result Froy Ervin MD CHEMISTRY ORDERABLES Performing Organization Address [facility] de Phone Number [facility] * Protein, total (07/08/2012 12:50 PM EDT) [facility] Protein, Total 6.9 6.4 - 8.3 gm/dL [facility] Blood specimen (specimen) 07/08/2012 12:50 PM EDT 07/08/2012 1:21 PM EDT Narrative Resulting Agency Comment Spec In Lab Nick Ervin MD CHEMISTRY ORDERABLES Performing Organization Address [facility] Phone Number [facility] * Albumin Level (07/08/2012 12:50 PM EDT) [facility] Albumin 4.7 3.2 - 5.2 gm/dL [facility] Blood specimen (specimen) 07/08/2012 12:50 PM EDT 07/08/2012 1:21 PM EDT Narrative Resulting Agency Comment Spec In Lab Authorizing Provider Result Froy Ervin MD CHEMISTRY ORDERABLES Performing Organization Address [facility] de Phone Number [facility] * High Sensitivity CRP (07/08/2012 12:50 PM EDT) [facility] C-Reactive Protein High Sensitivity 0.9 mg/L VALERIE [...] Lab Nick Ervin MD CHEMISTRY ORDERABLES [facility] * Sedimentation rate (07/08/2012 12:50 PM EDT) Sedimentation Rate Automated 6 0 - 20 mm/hr [facility] Blood specimen (specimen) 07/08/2012 12:50 PM EDT 07/08/2012 1:21 PM EDT Narrative Resulting Agency Comment Spec In Lab Authorizing Provider Result Froy Ervin MD HEMATOLOGY ORDERABLE S Performing Organization Address [facility] de Phone Number [facility] * APTT (07/08/2012 12:50 PM EDT) Partial Thromboplastin Time 30 25 - 35 sec [facility] Comment: Recommended therapeutic PTT range for full dose unfractionated heparin is 80-114 seconds. Blood specimen (specimen) 07/08/2012 12:50 PM EDT 07/08/2012 1:21 PM EDT Narrative Resulting Agency Comment Spec In Lab Authorizing Provider Result Froy Ervin MD HEMATOLOGY ORDERABLE S Performing Organization Address [facility] Phone Number [facility] [employer] * Prothrombin Time (07/08/2012 12:50 PM EDT) Prothrombin Time 12.6 11.9 - 14.7 sec [facility] Comment: [facility] Transfusion Committee Guidelines: INR less than 2.0, PTT less than OR equal to 43.5 seconds, or Fibrinogen greater than or equal to 100 mg/dl indicate adequate procoagulant activity for hemostasis in patients without underlying bleeding disorders. International Normalization Ratio 0.9 0.9 - 1.1 [facility] Blood specimen (specimen) 07/08/2012 12:50 PM EDT 07/08/2012 1:21 PM EDT Narrative Resulting Agency Comment Spec In Lab Authorizing Provider Result Froy Ervin MD HEMATOLOGY ORDERABLE S Performing Organization Address [facility] Phone [facility] [employer] [employer] * Basic Metabolic Panel (non-fasting) (07/08/2012 12:50 PM EDT) Glucose 93 60 - 199 mg/dL [facility] Comment:Diabetes: >=200 mg/d L plus symptoms Blood Urea Nitrogen 14 8 - 18 mg/dL [facility] Creatinine 0.74 0.70 - 1.20 mg/dL [facility] Comment: Please note that the pediatric reference intervals supplied above were not validated at [facility]. Results from pediatric [...] Ervin MD CHEMISTRY ORDERABLES CERNER MILLENNIUM * CBC (with Diff) (07/08/2012 12:50 [...] Nick Ervin MD HEMATOLOGY ORDERABLE S [facility] documented in this encounter Visit Diagnoses Diagnosis DJD (degenerative joint disease) of hip Osteoarthrosis, unspecified whether generalized or localized, pelvic region and thigh documented in this encounter Care Teams Office Bookkeeper Relationship Specialty Start Date End Date Mariluz Watts MD [address] [place] [address] PCP - General 08/22/10 documented as of this encounter
--- OUTSIDE RECORDS SUMMARY | 2024-07-02 16:39 | XMS_ITS | Encounter Summary ---
Author Organization [facility] [place] [address] Care Team Providers Care Director Asset Name Role Phone Mariluz Watts MD Primary Care Provider [phone] Encounter Details Date Type Department Care Team (Latest Contact Info) Description 05/02/2012 12:56 PM EDT - 05/02/2012 11:59 PM EDT [place] [address] CLINIC, DR KATARINA Merlos, Abrahan Chavarria MD [facility] HEMATOLOGY/[place] [address] Discharge Disposition: Home Social History Tobacco Use [...] 8:20 AM EST Office Visit Dermatology at [address] [phone] Charu Martin MD [facility] DR CONG [place] [address] 11/16/2024 1:00 PM EST Office [place] [address] Paula Harris PA [facility] [place] [address] 01/26/2025 9:50 AM EDT Appointment Mammography[place] [address] Joan Deutsch APRN [facility] [place] [address] 01/26/2025 10:30 AM EDT Office [place] [address] Joan Deutsch, ENERGY MANAGER [facility] [place] [address] documented as of this encounter Visit Diagnoses Not on filedocumented in this encounter Care Teams Director Asset Relationship Specialty Start Date End Date Mariluz Watts MD [address] [place] [address] PCP - General 08/22/10 documented as of this encounter
--- OUTSIDE RECORDS SUMMARY | 2024-07-02 16:39 | XMS_ITS | Encounter Summary ---
[place] [address] Care Team Providers Care Purchasing Analyst Name Role Phone Mariluz Watts MD Primary Care Provider [phone] Reason for Visit * Reason Comments Left Hip Pain Left Knee Pain Encounter Details Date Type Department Care Team (Late st Contact Info) Description 04/30/2012 9:00 AM EDT Office [place] [address] Nick Ervin MD [address] DR ORTH[place] [address] DJD (degenerative joint disease) of hip (Primary [...] in this encounter Progress Notes * Nick Ervin MD - 04/30/2012 11:02 AM EDT Very pleasant 66-year-old female who 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 Social history: She lives alone, she has her son and [id number]-aa-hfc live in close by. She drives. She [...] radiographs from 2005,although she is not yet uxhr-hl-zfqd she has lost approximately 50% of her [...] EST Office Visit Dermatology at [place] [address] [place] [address] Charu Martin MD [facility] [address] [place] [address] 11/16/2024 1:00 PM EST Office Visit [place] [address] Paula Harris PA [facility] [place] [address] 01/26/2025 9:50 AM EDT Appointment Mammography/[place] [address] Joan Deutsch APRN [facility] [place] [address] 01/26/2025 10:30 AM EDT Office Visit [place] [address] Joan Deutsch APRN [facility] [place] [address] documented as of this encounter Procedures Procedure [...] Result Froy Ervin MD IMG DX ORDERABLES * EKG 12 Lead (07/08/2012 1:37 PM EDT) Ventricular rate 68 BPM MUSE SYSTEM Atrial Rate 68 BPM MUSE SYSTEM P-R Interval 194 ms MUSE SYSTEM QRS Duration 70 ms MUSE SYSTEM Q-T Interval 388 ms MUSE SYSTEM QTC Calculated (Bezet) 412 ms MUSE SYSTEM Calculated P [place] 58 degrees MUSE SYSTEM Calculated R [place] -26 degrees MUSE SYSTEM Calculated T [place] 37 degrees MUSE SYSTEM INTERPRETATION Sinus rhythm with marked sinus arrhythmia Otherwise normal ECG When compared with ECG of 13-MAR-2010 09:34, No significant change was found Confirmed by MD Dooley Douglas ([id number]) on 07/08/2012 3:36:13 PM MUSE SYSTEM 07/08/2012 1:37 PM EDT 07/08/2012 3:36 PM EDT Nick Ervin MD ECG ORDERABLES MUSE SYSTEM * Urine culture Clean Catch Urine (07/08/2012 1:07 PM EDT) Urine Culture ? Patient Name: DIAMOND GAMING ?Ordered By: NICK ERVIN ? MR#: [id number] ?LOC: ??4V ? /Sex: ??1945 (66 years), [...] - GENER AL ORDERABLES Performing Organization Address City/State/[facility] de Phone Number [facility] * Urinalysis with microscopic (07/08/2012 1:07 PM [...] Urine Dipstick Clear Clear CERNER MILLENNIUM Specific [place] Urine Automated 1.017 1.002 - 1.030 CERNER MILLENNIUM Color, Urine Dipstick Yellow Yellow CERNER MILLENNIUM RBC, Urine <1 0 - 4 /HPF CERNER MILLENNIUM WBC, Urine 1 0 - 5 /HPF CERNER MILLENNIUM Urine specimen (specimen) 07/08/2012 1:07 PM EDT 07/08/2012 1:21 PM EDT Narrative Resulting Agency Comment Spec In Lab Nick Ervin MD URINE ORDERABLES Performing Organization Address [facility] Co de Phone Number [facility] * Hemoglobin A1c (07/08/2012 12:50 PM EDT) Hemoglobin A1c 5.5 4.3 - 6.1 % CERNER MILLENNIUM Estimated Average Glucose 111 mg/dL [facility]ILL[facility]NI[facility] Comment: eAG equivalents for HbA1c percentages: HbA1c(%) [...] into estimated average glucose values. ??Diabetes Care 2008:31(8):8319-7312. Blood specimen (specimen) 07/08/2012 12:50 PM EDT 07/08/2012 1:21 PM EDT Narrative Resulting Agency Comment Spec In Lab Nick Ervin MD CHEMISTRY ORDERABLES Performing Organization Address [facility] de Phone Number [facility] * Protein, total (07/08/2012 12:50 PM EDT) Pathologist [facility] Protein, Total 6.9 6.4 - 8.3 gm/dL [facility] Blood specimen (specimen) 07/08/2012 12:50 PM EDT 07/08/2012 1:21 PM EDT Narrative Resulting Agency Comment Spec In Lab Nick Ervin MD CHEMISTRY ORDERABLES Performing Organization Address [facility] de Phone Number [facility] * Albumin Level (07/08/2012 12:50 PM EDT) [facility] Albumin 4.7 3.2 - 5.2 gm/dL [facility] Blood specimen (specimen) 07/08/2012 12:50 PM EDT 07/08/2012 1:21 PM EDT Narrative Resulting Agency Comment Spec In Lab Nick Ervin MD CHEMISTRY ORDERABLES Performing Organization Address City/[facility] Phone Number [facility] * High Sensitivity CRP (07/08/2012 12:50 PM EDT) Pathologist [facility] C-Reactive Protein High Sensitivity 0.9 mg/L VALERIE [...] Ervin MD CHEMISTRY ORDERABLES Performing Organization Address City/[facility] Co de Phone Number [facility] * Sedimentation rate (07/08/2012 12:50 PM EDT) Sedimentation Rate Automated 6 0 - 20 mm/hr [facility] Blood specimen (specimen) 07/08/2012 12:50 PM EDT 07/08/2012 1:21 PM EDT Narrative Resulting Agency Comment Spec In Lab Authorizing Provider Result Froy Ervin MD HEMATOLOGY ORDERABLE S Performing Organization Address [facility] Co de Phone Number [facility] * APTT (07/08/2012 12:50 PM EDT) Partial Thromboplastin Time 30 25 - 35 sec [facility] Comment: Recommended therapeutic PTT range for full dose unfractionated heparin is 80-114 seconds. Blood specimen (specimen) 07/08/2012 12:50 PM EDT 07/08/2012 1:21 PM EDT Narrative Resulting Agency Comment Spec In Lab Authorizing Provider Result Froy Ervin MD HEMATOLOGY ORDERABLE S Performing Organization Address [facility] de Phone Number [facility] * Prothrombin Time (07/08/2012 12:50 PM EDT) Prothrombin Time 12.6 11.9 - 14.7 sec [facility] Comment: [facility] Transfusion Committee Guidelines: INR less than 2.0, PTT less than OR equal to 43.5 seconds, or Fibrinogen greater than or equal to 100 mg/dl indicate adequate procoagulant activity for hemostasis in patients without underlying bleeding disorders. International Normalization Ratio 0.9 0.9 - 1.1 [facility] Blood specimen (specimen) 07/08/2012 12:50 PM EDT 07/08/2012 1:21 PM EDT Narrative Resulting Agency Comment Spec In Lab Authorizing Provider Result Froy Ervin MD HEMATOLOGY ORDERABLE S Performing Organization Address [facility] Co de Phone Number [facility] * Basic Metabolic Panel (non-fasting) (07/08/2012 12:50 PM EDT) [facility] Glucose 93 60 - 199 mg/dL [facility]ILLENNI[facility] Comment:Diabetes: >=200 mg/d L plus symptoms Blood Urea Nitrogen 14 8 - 18 mg/dL [facility] MILLENNI[facility] Creatinine 0.74 0.70 - 1.20 mg/dL [facility] Comment: Please note that the pediatric reference intervals supplied above were not validated at [facility]. Results from pediatric patients should be interpreted [...] In Lab Nick Ervin MD CHEMISTRY ORDERABLES [facility] MANISHA[facility] * CBC (with Diff) (07/08/2012 12:50 PM [...] Platelet Volume 11.5 9.0 - 12.0 fL [facility] Blood specimen (specimen) 07/08/2012 12:50 [...] thigh documented in this encounter Care Teams Purchasing Analyst Relationship Specialty Start Date End Date Mariluz Watts MD [address] [place] [address] PCP - General 08/22/10 documented as of this encounter
--- OUTSIDE RECORDS SUMMARY | 2024-07-02 16:39 | XMS_ITS | Encounter Summary ---
[place] [address] Care Team Providers Care Lap Checker Name Role Phone Mariluz Watts MD Primary Care Provider [phone] Reason for Visit * Reason Comments Radiation Follow-up Right Breast Cancer Encounter Details Date Type Department Care Team (Latest Contact Info) Description 09/04/2011 1:33 PM EST - 09/04/2011 11:59 PM [facility] Hospital Encounter [place] [address] Stephanie Fernandez, [address] RADIATION ONCOLOGY [place], [place] [address] Breast cancer, stage 2 Discharge Disposition: Home [...] this encounter Progress Notes * Stephanie Fernandez, SOLAR RESOURCE ASSESSOR - 09/04/2011 2:18 PM EST Subjective: Patient ID: Diamond Gaming is a 65 y.o. female who was treated with radiation therapy [id number] right breast cancer. She completed radiation therapy on 05/15/2010 and is in clinic today for scheduledfollow up. HPI Right breast IDC with lobular features, intermediate grade, 1.5cm and additional lesion 0.8cm, +ALI, -PNI, tx lumpectomy and bilateral breast reductions, there is a close deep margin that was re-excised, 1 of 2 sentinel LNs involved with 0.2cm of disease and no GENA. ER+, AK+, [id number] pending. Note-left breast excisional biopsy showed a papilloma. DIAGNOSIS: breast cancer STAGE: Right- pT1c pN1 pMX PATHOLOGY: 03/24/10- Left breast excisional biopsy, right breast partial mastectomy and sentinel lymphadenectomy with bilateral breast reductions. RIGHT BREAST SPECIMEN FINDING: ---Pathologic Diagnosis--- Specimen (s): A - Right [place] node C - Right Partial Mastectomy E - Right Breast Cranial Margin F - Right Breast inferior medial margin Lesions 1&2: Histologic Type: Invasive ductal carcinoma with lobular features Tumor Grade: Intermediate Pkjdcq-Pdwmq-Tlczhrjqon Score: 7 Tubular Differentiation: 3 Mitotic Rate: [...] sentinel nodes: 2 (Specimen A - Right [place] node) No. positive for carcinoma: 1 (H&E) No. with IHC (+) cells only: 0 (cells not seen by H&E, see Note*) No. negative for carcinoma: 1 (both H&E and IHC) For positive nodes: Largest kristi deposit 0.2 cm Extranodal extension Absent Estrogen/Progestin receptors: Performed on blocks C2 and C11 ER immunoreactivity: Positive (see Diagnostic hanna*) AK immunoreactivity: Positive (see Diagnostic hanna*) HER2/shonda expression by FISH: pending Specimen: B - Left Breast, partial mastectomy D - Left Breast, deep margin Specimen Size: B - 30.0 x 13.4 x 3.5 cm D - 2.5 x 2.0 x 0.7 cm Diagnosis: Benign sclerosing papilloma Prior Bx's correlation: [id number], part B Other findings: Fibrocystic disease with [...] 8:20 AM EST Office Visit Dermatology at [facility] [address] [place] [address] Charu Martin MD [facility] [place] [address] 11/16/2024 1:00 PM EST Office Visit General Surgery at [place] [phone] Paula Harris PA [facility] [place] [address] 01/26/2025 9:50 AM EDT Appointment Mammography/[place] [address] Joan Deutsch, GE [facility] [place] [address] 01/26/2025 10:30 AM EDT Office [place] [address] Joan Deutsch, GE [facility] [place] [address] documented as of this encounter Visit Diagnoses Diagnosis Breast cancer, stage 2 Malignant neoplasm of breast (female), unspecified site documented in this encounter Care Teams Lap Checker Relationship Specialty Start Date End Date Mariluz Watts MD [address] [place] [address] PCP - General 08/22/10 documented as of this encounter
--- OUTSIDE RECORDS SUMMARY | 2024-07-02 16:39 | XMS_ITS | Encounter Summary ---
[place] [address] Care Team Providers Care Environmental Maintenance Worker Name Role Phone Mariluz Watts MD Primary Care Provider [phone] Encounter Details Date Type Department Care Team (Late st Contact Info) Description 08/16/2011 Telephone [place]ematology [place] [phone] Gemini Lawrence RN Social History Tobacco Use [...] PM EST Diamond is changing pharmacy to [facility] and wishes medication to be mailed to her. [facility] aware of this. Script generated and pended for approval and signature on 08/14/2011. documented in this encounter Plan of Treatment Upcoming Encounters Date Type Department Care Team (Late st Contact Info) Description 08/05/2024 8:20 AM EST Office Visit Dermatology at [facility] [address] [place] [address] [facility] [place] [address] 11/16/2024 1:00 PM EST Office Visit General Surgery at [place] [phone] [facility] [place] [address] 01/26/2025 9:50 AM EDT Appointment Mammography/[place] [address] Joan Deutsch ZINC FURNACE CHARGER [facility] [place] [address] 01/26/2025 10:30 AM EDT Office [place] [phone] Joan Deutsch ZINC FURNACE CHARGER [facility] [place] [address] documented as of this encounter Visit Diagnoses Not on filedocumented in this encounter Care Teams Environmental Maintenance Worker Relationship Specialty Start Date End Date Mariluz Watts MD [address] [place] [address] [address] [place] [address] PCP - General 08/22/10 documented as of this encounter
--- OUTSIDE RECORDS SUMMARY | 2024-07-02 16:39 | XMS_ITS | Encounter Summary ---
[place] [address] Care Team Providers Care Director Shopper Marketing Name Role Phone Mariluz Watts MD Primary Care Provider [phone] Reason for Visit * Reason Comments Follow-up Encounter Details Date Type Department Care Team (Late st Contact Info) Description 05/02/2012 2:00 PM EDT Follow-Up [place] [address] Abrahan Merlos MD [facility] DR HEMATOLOGY/[place] [address] Breast cancer, stage 2 (Primary Dx) Discharge [...] through April of 2015. Abrahan Merlos MD postal inspector in Hematology-Oncology documented in this encounter Plan of Treatment Upcoming Encounters Date Type Department Care Team (Late st Contact Info) Description 08/05/2024 8:20 AM EST Office Visit Dermatology at [address] [place] [address] Charu Martin MD [facility] DR [place] [address] 11/16/2024 1:00 PM EST Office [place] [address] Paula Harris PA [facility] [place] [address] 01/26/2025 9:50 AM EDT Appointment Mammography/[place] [address] Joan Deutsch APRN [facility] [place] [address] 01/26/2025 10:30 AM EDT Office [place] [address] Joan Deutsch APRN [facility] [place] [address] documented as of this encounter Procedures Procedure Name Priority Date/Time Associated Diagnosis Comments VITAMIN D, 25-HYDROXY Routine 05/02/2012 1:09 PM EDT Breast cancer, stage 2 HEPATIC FUNCTION PANEL STAT 05/02/2012 1:09 PM EDT Breast cancer, stage 2 documented in this encounter Results * VIT D Total 25 Hydroxy (05/02/2012 1:09 PM EDT) Vitamin D Total 25 OH 41 30 - 100 ng/mL [facility] Comment: Deficient <10 ng/mL Insufficient 10 [...] Hydroxy assays are being analyzed by the [facility]. ??There is NO CHANGE in units. ??Please contact the chemistry laboratory at [phone] with questions. Blood specimen (specimen) 05/02/2012 1:09 PM EDT 05/02/2012 1:11 PM EDT Narrative Resulting Agency Comment Spec In Lab Abrahan Merlos MD CHEMISTRY ORDERABLES [facility] * Hepatic Function Panel (05/02/2012 1:09 PM EDT) Protein, Total 6.8 6.4 - 8.3 gm/dL [facility] Albumin 4.6 3.2 - 5.2 gm/dL [facility] Aspartate Aminotransferase 13 0 - 30 unit/L [...] In Lab Abrahan Merlos MD CHEMISTRY ORDERABLES [facility] documented in this encounter Visit Diagnoses Diagnosis Breast cancer, stage 2- Primary Malignant neoplasm of breast (female), unspecified site documented in this encounter Care Teams Director Shopper Marketing Relationship Specialty Start Date End Date Mariluz Watts MD [address] [place] [address] PCP - General 08/22/10 documented as of this encounter
--- OUTSIDE RECORDS SUMMARY | 2024-07-02 16:39 | XMS_ITS | Encounter Summary ---
Author Organization [facility] [place] [address] Care Team Providers Care Radar Technician Name Role Phone Mariluz Watts MD Primary Care Provider [phone] Encounter Details Date Type Department Care Team (Late st Contact Info) Description 07/21/2012 External Results [place] [address] Social History Tobacco Use Types Packs/Day Years [...] at [facility] [address] [place] [address] Charu Martin MD [facility] [place] [address] 11/16/2024 1:00 PM EST Office Visit General Surgery at [place] [address] Paula Harris PA [facility] [place] [address] 01/26/2025 9:50 AM EDT Appointment Mammography/DXA at [place] [phone] Joan Deutsch, LOAD OUT PERSON [facility] [place] [address] 01/26/2025 10:30 AM EDT Office Visit General Surgery at [place] [phone] Joan Deutsch, LOAD OUT PERSON [facility] [place] [address] documented as of this encounter Visit Diagnoses Not on filedocumented in this encounter Care Teams Radar Technician Relationship Specialty Start Date End Date Mariluz Watts MD [address] [place] [address] PCP - General 08/22/10 documented as of this encounter
--- OUTSIDE RECORDS SUMMARY | 2024-07-02 16:39 | XMS_ITS | Encounter Summary ---
Author Organization [facility] [place] [address] Care Team Providers Care Association Executive Name Role Phone Mariluz Watts MD Primary Care Provider [phone] Encounter Details Date Type Department Care Team (Late st Contact Info) Description 02/29/2012 12:00 PM EDT - 02/29/2012 1:00 PM EDT Surgery [place] [address] Gallito [place] MD [facility] [place] [address] COLONOSCOPY, DIAGNOSTIC (WRVU 3.26) Social History Tobacco [...] - 02/29/2012 1:01 PM EDT Please call [phone], before 5pm with problems, questions or concerns, after 5pm call the Hospital at [phone] and ask to speak to the [place] L[employer] train control electronic technician and the foundry operator will contactthat person for you. Discharge [...] * COLONOSCOPY: WHAT TO EXPECT AT HOME (SPANISH) documented in this encounter Medications at Time [...] Dermatology at [facility] [address] [place] [address] Charu Martin MD [facility] DR [place]G [place] [address] 11/16/2024 1:00 PM EST Office [place] [address] Paula Harris PA [facility] [place] [address] 01/26/2025 9:50 AM EDT Appointment Mammography/[place] [address] Joan Deutsch APRN [facility] [place] [address] 01/26/2025 10:30 AM EDT Office [place] [address] Joan Deutsch APRN [facility] [place] [address] documented as of this encounter Procedures Procedure Name Priority Date/Time Associated Diagnosis Comments COLONOSCOPY Routine 02/29/2012 12:01 PM EDT COLONOSCOPY, DIAGNOSTIC (WRVU 3.26) 02/29/2012 11:39 AM EDT 5YR RESCOPE documented in this encounter Results * COLONOSCOPY (02/29/2012 12:01 PM EDT) COLONOSCOPY [facility] Endoscopy Patient Name: Diamond Gaming ? Procedure Date: 02/29/2012 12:01 PM ? Date of : 1945 ? Age: 66 ? Order #: [id number] ? Procedure: ? Colonoscopy Indications: ? Follow-up for history of adenomatous ? polyps in the colon Providers: ? Gallito [place] MD, Anu Schafer, ? Margret MAURO, Director Software Quality Assurance Referring : ?Mariluz Watts MD Medicines: ? [...] Trudi Steele RN)1228 (Given - Provider: Trudi Steele, RN)1231 (Given - Provider: Trudi Steele, RN) midazolam (VERSED) injection (CANCELED) ONCE PRN, Starting on Sat02/29/12 at 1145, Until Sat02/29/12 at 1718, Sleep, Intra-Operative (Intra-Procedure), Routine 1145 (Given - Provid er: Anu Schafer RN - Comment: pre sedation)1147 (Given - Provider: Anu Schafer RN - Comment: sedation needed)1217 (Given - Provider: Trudi Steele RN)1228 (Given - Provider: Trudi Steele, RN)1231 (Given - Provider: Trudi Steele RN) documented in this encounter Care Teams Association Executive Relationship Specialty Start Date End Date Mariluz Watts MD [address] [place] [address] PCP - General 08/22/10 documented as of this encounter
--- OUTSIDE RECORDS SUMMARY | 2024-07-02 16:39 | XMS_ITS | Encounter Summary ---
Author Organization [facility] [place] [address] Care Team Providers Care Pilot Submersible Name Role Phone Mariluz Watts MD Primary Care Provider [phone] Reason for Visit * Reason Comments Follow-up Encounter Details Date Type Department Care Team (Late st Contact Info) Description 11/01/2011 3:00 PM EST Follow-Up Hematology [place] [address] CLINIC, DR KATARINA Merlos, Abrahan Chavarria MD [facility] DR HEMATOLOGY/[place] [address] Breast cancer, stage 2 (Primary Dx) Discharge [...] level at that time. Abrahan Merlos MD golf club head inspector and adjuster in Hematology-Oncology documented in this encounter Miscellaneous Notes * Communication Body - Abrahan Merlos MD - 11/01/2011 3:48 PM EST documented in this encounter Plan of Treatment Upcoming Encounters Date Type Department Care Team (Late st Contact Info) Description 08/05/2024 8:20 AM EST Office Visit Dermatology at [place] [address] [place] [address] Charu Martin MD [facility] [place] [address] 11/16/2024 1:00 PM EST Office Visit [place] [address] Paula Harris PA [facility] [place] [address] 01/26/2025 9:50 AM EDT Appointment Mammography/[place] [address] Joan Deutsch APRN [facility] [place] [address] 01/26/2025 10:30 AM EDT Office Visit [place] [address] Joan Deutsch APRN [facility] [place] [address] documented as of this encounter Results * VIT D Total 25 Hydroxy (05/02/2012 1:09 PM EDT) Pathologist [facility] Vitamin D Total 25 OH 41 30 - 100 ng/mL [facility] Comment: Deficient <10 ng/mL Insufficient 10 [...] Hydroxy assays are being analyzed by the [facility] Chemistry Laboratory. ??There is NO CHANGE in units. ??Please contact the chemistry laboratory at [phone] with questions. Blood specimen (specimen) 05/02/2012 1:09 PM EDT 05/02/2012 1:11 PM EDT Narrative Resulting Agency Comment Spec In Lab Abrahan Merlos MD CHEMISTRY ORDERABLES [facility] * Hepatic Function Panel (05/02/2012 1:09 PM EDT) Pathologist [facility] Protein, Total 6.8 6.4 - 8.3 gm/dL [facility] Albumin 4.6 3.2 - 5.2 gm/dL [facility] Aspartate Aminotransferase 13 0 - 30 unit/L [facility] Alanine Aminotransferase 15 0 - 30 unit/L [facility] Alkaline Phosphatase 97 40 - 104 unit/L [facility] Bilirubin, Total 0.2 0.2 - 1.3 mg/dL [facility] Bilirubin, Direct 0.1 0.0 - 0.3 mg/dL [facility] Blood specimen (specimen) 05/02/2012 1:09 PM EDT 05/02/2012 1:11 PM EDT Narrative Resulting Agency Comment Spec In Lab Abrahan Merlos MD CHEMISTRY ORDERABLES [facility] documented in this encounter Visit Diagnoses Diagnosis Breast cancer, stage 2- Primary Malignant neoplasm of breast (female), unspecified site documented in this encounter Care Teams Pilot Submersible Relationship Specialty Start Date End Date Mariluz Watts MD [address] [place] [address] PCP - General 08/22/10 documented as of this encounter
--- OUTSIDE RECORDS SUMMARY | 2024-07-02 16:39 | XMS_ITS | Encounter Summary ---
Author Organization [facility] [place] [address] Care Team Providers Care Veterinary Technician Assistant Name Role Phone Mariluz Watts MD Primary Care Provider [phone] Reason for Visit * Reason Comments Rosacea Encounter Details Date Type Department Care Team (Late st Contact Info) Description 02/21/2012 3:30 PM EDT [place] [address] Chayo Willingham MD [facility] [place] [address] Rosacea (Primary Dx); Sebaceous hyperplasia Discharge Disposition: [...] supervision with direct supervision immediately available. (definition: [facility] Policy Statement on Graduate Medical [...] by Chayo Willingham MD Resident in Dermatology [facility] Patient discussed with staff dental scheduler: Tulio Fernandez MD Section of Dermatology [facility] documented in this encounter Plan of Treatment Upcoming Encounters Date Type Department Care Team (Late st Contact Info) Description 08/05/2024 8:20 AM EST Office Visit Dermatology at [address] [place] [address] Charu Martin MD [facility] [place] [address] 11/16/2024 1:00 PM EST Office [place] [address] Paula Harris PA [facility] [place] [address] 01/26/2025 9:50 AM EDT Appointment Mammography/[place] [address] Joan Deutsch APRN [facility] [place] [address] 01/26/2025 10:30 AM EDT Office [place] [address] Joan Deutsch APRN [facility] [place] [address] documented as of this encounter Visit Diagnoses Diagnosis Rosacea- Primary Sebaceous hyperplasia Other specified disease of sebaceous glands documented in this encounter Care Teams Veterinary Technician Assistant Relationship Specialty Start Date End Date Mariluz Watts MD [address] [place] [address] PCP - General 08/22/10 documented as of this encounter
--- OUTSIDE RECORDS SUMMARY | 2024-07-02 16:39 | XMS_ITS | Encounter Summary ---
Author Organization [facility] [place] [address] Care Team Providers Care Motel Clerk Name Role Phone Mariluz Watts MD Primary Care Provider Encounter Details Date Type Department Care Team (Latest Contact Info) Description 01/31/2012 1:06 PM EDT - 01/31/2012 11:59 PM EDT Hospital Encounter XRay at [address] [place] [address] CLINIC, Kian Stone MD [address] [facility] [place] [address] Hip pain Discharge Disposition: Home Social History [...] Procedure: LEFT HIP INJECTION UNDER FLUOROSCOPY ACC#: [id number] Indication for Procedure: Left hip pain, degenerative [...] under fluoroscopy. Resident/Fellow: Dr. Devaughn Mcdonough (Pager #[phone]) Attending: Dr. Marly Torres ATTENDING ATTESTATION IMarly MD MS, supervised the resident/fellow during the hanna and critical portions of theprocedure and was immediately available throughout. documented in this encounter Plan of Treatment Upcoming Encounters Date Type Department Care Team (Late st Contact Info) Description 08/05/2024 8:20 AM EST Office Visit [address] [place] [address] Charu Martin MD [facility] DR CONG JOSE-[place] [address] 11/16/2024 1:00 PM EST Office [place] [address] Paula Harris PA [facility] [place] [address] 01/26/2025 9:50 AM EDT Appointment Mammography/[place] [address] Joan Deutsch APRN [facility] [address] [place] [address] 01/26/2025 10:30 AM EDT Office [place] [address] Joan Deutsch APRN [facility] [place] [address] documented as of this encounter Procedures Procedure [...] HIP INJECTION UNDER FLUOROSCOPY ? ACC#: ?? [id number] ?Indication ?? for Procedure: Left hip pain, [...] ?? PAIN SCORE: ?Before: ?? /10 ?After: ?? /10 ?3. ?? Medications: ?Lidocaine ?? 1% - [...] fluoroscopy. ?Resident/Fellow: ?? Dr. Devaughn Mcdonough (Pager #[phone]) ? Attending: ?? Dr. Marly Torres ?ATTENDING [...] 1945 Procedure: LEFT HIP INJECTION UNDERFLUOROSCOPY ACC#: [id number] Indication for Procedure: Left hip pain, degenerative [...] jointinjection under fluoroscopy. Resident/Fellow: Dr. Devaughn Mcdonough (Pager#[phone]) Attending: Dr. Marly Torres ATTENDING ATTESTATION I, aMrly Torres MD MS, supervised the resident/fellowduring the [...] EDT documented in this encounter Care Teams Motel Clerk Relationship Specialty Start Date End Date Mariluz Watts MD [address] [place] [address] 1 [place] [address] PCP - General 08/22/10 documented as of this encounter
--- OUTSIDE RECORDS SUMMARY | 2024-07-02 16:39 | XMS_ITS | Encounter Summary ---
Author Organization [facility] [place] [address] Care Team Providers Care Gas Station Attendant Name Role Phone Mariluz Watts MD Primary Care Provider [phone] Encounter Details Date Type Department Care Team (Latest Contact Info) Description 01/25/2012 2:17 PM EDT - 01/25/2012 11:59 PM EDT Hospital Encounter XRay at [address] [place] [address] S/P hip replacement Social History Tobacco Use [...] 8:20 AM EST Office Visit Dermatology at [facility] [address] [place] [address] Charu Martin MD [facility] [place] [address] 11/16/2024 1:00 PM EST Office [place] [address] Paula Harris PA [facility] [place] [address] 01/26/2025 9:50 AM EDT Appointment Mammography/[place] [address] Joan Deutsch APRN [facility] [place] [address] 01/26/2025 10:30 AM EDT Office [place] [address] Joan Deutsch APRN [facility] [place] [address] documented as of this encounter Procedures Procedure [...] alignment in the weight bearing position. Mechanical [place]: ??The patient is status post right total [...] quadriceps tendon or in the joint bursa. [place] view shows moderate lateral facet narrowing, right greater than left. Schuss views demonstrate [id number] left medial compartmental narrowing and mild osteophytosis. [...] extremity alignment inthe weight bearing position. Mechanical [place]: The patient is status post right total [...] the quadriceps tendon or in the jointbursa. [place] view shows moderate lateral facet narrowing, right greater thanleft. Schuss views demonstrate [id number] left medial compartmentalnarrowing and mild osteophytosis. PELVIS [...] means documented in this encounter Care Teams Gas Station Attendant Relationship Specialty Start Date End Date Mariluz Watts MD [address] [place] [address] PCP - General 08/22/10 documented as of this encounter
--- OUTSIDE RECORDS SUMMARY | 2024-07-02 16:39 | XMS_ITS | Encounter Summary ---
Author Organization [facility] [place] [address] Care Team Providers Care Talent Program Manager Name Role Phone Mariluz Watts MD Primary Care Provider [phone] Encounter Details Date Type Department Care Team (Late st Contact Info) Description 07/22/2012 3:42 PM EDT Anesthesia [place] [address] Terry Membreno MD [facility] [place] [address] Cornell Leija CRNA [facility] [place] [address] Anesthesia Record Procedure Summary Procedure Name Responsible [...] - 07/23/2012 9:09 AM EDT Patient: Diamond Gamign Procedure(s) Performed: Procedure(s): @TOTAL HIP ARTHROPLASTY, ANTERIOR [...] Procedure Performed: Right total hip arthroplasty, cementless, gyeppzh-qd-idgqfhv Components Used: Nina Trident 52 shell outer diameter Femoral head 32-4 mm [place] Accolade Femoral stem size 4, 127 deg [...] risks discussed with patient. Plan discussed with WASHERETTE MACHINE OPERATOR. Misc. Assessment: documented in this encounter Miscellaneous Notes * Addendum Note - Charity Gomez - 07/23/2012 11:18 AM EDT Addendum created 07/23/12 1118 by Charity Gomez Modules edited:Anesthesia Events, Anesthesia Responsible Staff documented in this encounter Plan of Treatment Upcoming Encounters Date Type Department Care Team (Late st Contact Info) Description 08/05/2024 8:20 AM EST Office Visit Dermatology at [address] [address] Charu Martin MD [facility] [place] [address] 11/16/2024 1:00 PM EST Office Visit General Surgery at [place] [phone] Paula Harris PA [facility] [place] [place] [address] 01/26/2025 9:50 AM EDT Appointment Mammography/DXA at [place] [phone] Joan Deutsch APRN [facility] [place] [address] 01/26/2025 10:30 AM EDT Office [place] [address] Joan Deutsch APRN [facility] [place] [address] documented as of this encounter Visit Diagnoses Not on filedocumented in this encounter Care Teams Talent Program Manager Relationship Specialty Start Date End Date Mariluz Watts MD [address] [place], [place] [address] [place] [address] PCP - General 08/22/10 documented as of this encounter
--- OUTSIDE RECORDS SUMMARY | 2024-07-02 16:39 | XMS_ITS | Encounter Summary ---
Author [facility] [place] [id number] Care Team Providers Care Oil Pipeline Dispatcher Name Role Phone Mariluz Watts MD Primary Care Provider [phone] Reason for Visit * Reason Comments Rosacea Encounter Details Date Type Department Care Team (Late st Contact Info) Description 11/13/2011 2:20 PM [place] [address] Chayo Willingham MD [facility] [address] JO[place] [address] Rosacea (Primary Dx); Sebaceous hyperplasia Discharge Disposition: [...] supervision with direct supervision immediately available. (definition: [facility] GME Policy Statement on [...] concerns. Chayo Willingham MD Resident in Dermatology [facility] Patient seen and evaluated with staff dock worker: Chetan Adrian MD Section of Dermatology [facility] documented in this encounter Plan of Treatment Upcoming Encounters Date Type Department Care Team (Late st Contact Info) Description 08/05/2024 8:20 AM EST Office Visit Dermatology at [facility] [address] [place] [address] Charu Martin MD [facility] [place] [address] 11/16/2024 1:00 PM EST Office [place] [address] Paula Harris PA [facility] [place] [address] 01/26/2025 9:50 AM EDT Appointment Mammography/[place] [address] Joan Deutsch APRN [facility] [place] [place] [address] 01/26/2025 10:30 AM EDT Office [place] [address] Joan Deutsch APRN [facility] [place] [address] documented as of this encounter Visit Diagnoses Diagnosis Rosacea- Primary Sebaceous hyperplasia Other specified disease of sebaceous glands documented in this encounter Care Teams Oil Pipeline Dispatcher Relationship Specialty Start Date End Date Mariluz Watts MD [address] [place] [address] PCP - General 08/22/10 documented as of this encounter
--- OUTSIDE RECORDS SUMMARY | 2024-07-02 16:39 | XMS_ITS | Encounter Summary ---
[place] [address] Care Team Providers Care Production Assembler Name Role Phone Mariluz Watts MD Primary Care Provider [phone] Encounter Details Date Type Department Care Team (Latest Contact Info) Description 07/08/2012 12:00 PM EDT Clinical [place] [address] DJD (degenerative joint disease) of hip (Primary [...] 8:20 AM EST Office Visit Dermatology at [place] [address] [place] [address] Charu Martin MD [facility] [place] [address] 11/16/2024 1:00 PM EST Office [place] [address] Paula Harris PA [facility] [place] [address] 01/26/2025 9:50 AM EDT Appointment Mammography/[place] [address] Joan Deutsch APRN [facility] [place] [address] 01/26/2025 10:30 AM EDT Office [place] [address] Joan Deutsch APRN [facility] [place] [address] documented as of this encounter Procedures Procedure [...] (Bezet) 412 ms MUSE SYSTEM Calculated P [place] 58 degrees MUSE SYSTEM Calculated R [place] -26 degrees MUSE SYSTEM Calculated T [place] 37 degrees MUSE SYSTEM INTERPRETATION Sinus rhythm [...] thigh documented in this encounter Care Teams Production Assembler Relationship Specialty Start Date End Date Mariluz Watts MD [address] [place] [address] PCP - General 08/22/10 documented as of this encounter
--- OUTSIDE RECORDS SUMMARY | 2024-07-02 16:39 | XMS_ITS | Encounter Summary ---
Author Organization [facility] [place] [address] Care Team Providers Care Machinist Helper Name Role Phone Mariluz Watts MD Primary Care Provider [phone] Encounter Details Date Type Department Care Team (Late st Contact Info) Description 11/05/2011 Orders Only [place] [address] Karine Vaca, RN Malignant neoplasm of breast [...] AM EST Office Visit Dermatology at [facility] [address] [place] [address] Charu Martin MD [facility] [place] [address] 11/16/2024 1:00 PM EST Office Visit General Surgery at [place] [address] Paula Harris PA [facility] [place] [address] 01/26/2025 9:50 AM EDT Appointment Mammography/DXA at [place] [address] Joan Deutsch, TANK CARPENTER [facility] [place] [address] 01/26/2025 10:30 AM EDT Office Visit General Surgery at [place] [address] Joan Deutsch, TANK CARPENTER [facility] [place] [address] documented as of this encounter Visit Diagnoses Diagnosis Malignant neoplasm of breast (female), unspecified site- Primary documented in this encounter Care Teams Machinist Helper Relationship Specialty Start Date End Date Mariluz Watts MD [address] [place] [address] PCP - General 08/22/10 documented as of this encounter
--- OUTSIDE RECORDS SUMMARY | 2024-07-02 16:40 | XMS_ITS | Encounter Summary ---
[place] [address] Care Team Providers Care Android Platform Developer Name Role Phone Mariluz Watts MD Primary Care Provider Reason for Visit * Reason Comments Follow-up Encounter Details Date Type Department Care Team (Latest Contact Info) Description 04/06/2011 1:37 PM EDT - 04/06/2011 11:59 PM EDT Hospital Encounter [place]ology [place] [address] Abrahan Merlos MD [facility] HEMATOLOGY/[place] [address] Breast cancer, stage 2 Discharge Disposition: Home [...] Take 500 mg by mouth daily. 09/04/2011 Kvekxlb-Ecdiruadt-Qvkh 333-133-5 mg Tab Take 3 tablets by [...] 8:20 AM EST Office Visit Dermatology at [address] [address] Charu Martin MD [facility] DR [place] [address] 11/16/2024 1:00 PM EST Office [place] [address] Paula Harris PA [facility] [place] [address] 01/26/2025 9:50 AM EDT Appointment Mammography[place] [address] Joan Deutsch APRN [facility] [place] [address] 01/26/2025 10:30 AM EDT Office [place] [address] Joan Deutsch, GE [facility] [place] [address] documented as of this encounter Visit Diagnoses Diagnosis Breast cancer, stage 2 Malignant neoplasm of breast (female), unspecified site documented in this encounter Care Teams Android Platform Developer Relationship Specialty Start Date End Date Mariluz Watts MD [address] [place] [address] [address] [place] [address] PCP - General 08/22/10 documented as of this encounter
--- OUTSIDE RECORDS SUMMARY | 2024-07-02 16:40 | XMS_ITS | Encounter Summary ---
Author Organization [facility] [place] [address] Care Team Providers Care Wood Bucker Name Role Phone Unavailable Primary Care Provider Unavailabl e Encounter Details Date Type Department Care Team (Late st Contact Info) Description 08/14/2010 10:00 AM EST - 08/14/2010 11:59 PM EST Hospital Encounter [place] [address] Mari Paniagua MD [facility] [place] [address] Social History Tobacco Use Types Packs/Day Years [...] [facility] [address] [place] [address] Charu Martin MD [facility] [address] [place] [address] 11/16/2024 1:00 PM EST Office Visit General Surgery at [place] [phone] Paula Harris PA [facility] [place] [address] 01/26/2025 9:50 AM EDT Appointment Mammography/DXA at [place] [phone] Joan Deutsch APRN [facility] [place] [address] 01/26/2025 10:30 AM EDT Office Visit General Surgery at [place] [phone] Joan Deutsch, GE [facility] [place] [address] documented as of this encounter Visit Diagnoses Not on filedocumented in this encounter
--- OUTSIDE RECORDS SUMMARY | 2024-07-02 16:40 | XMS_ITS | Encounter Summary ---
Author Organization [facility] [place] [address] Care Team Providers Care Enamel Dipper Name Role Phone Mariluz Watts MD Primary Care Provider [phone] Encounter Details Date Type Department Care Team (Late st Contact Info) Description 10/26/2010 11:00 AM EST Follow-[place] [address] Social History Tobacco Use Types Packs/Day Years [...] Dermatology at [facility] [address] [place] [address] Charu Martin MD [facility] [place] [address] 11/16/2024 1:00 PM EST Office [place] [address]1000 Paula Harris, [facility]NA [facility] [place] [address] 01/26/2025 9:50 AM EDT Appointment Mammography/[place] [address]-1000 Joan Deutsch, GE [facility] [place] [address] 01/26/2025 10:30 AM EDT Office [place] [address]-1000 Joan Deutsch, GE [facility] [place] [address] documented as of this encounter Visit Diagnoses Not on filedocumented in this encounter Care Teams Enamel Dipper Relationship Specialty Start Date End Date Mariluz Watts MD [address] [place] [address] PCP - General 08/22/10 documented as of this encounter
--- OUTSIDE RECORDS SUMMARY | 2024-07-02 16:40 | XMS_ITS | Encounter Summary ---
Author Organization [facility] [place] [address] Care Team Providers Care Spa Receptionist Name Role Phone Mariluz Watts MD Primary Care Provider [phone] Encounter Details Date Type Department Care Team (Late st Contact Info) Description 10/26/2010 1:15 PM EST [place] [address] Gardenia Marquez MD [facility] [place] [address] Discharge Disposition: Home Social History Tobacco Use [...] at [facility] [address] [place] [address] Charu Martin MD [facility] [place] [address] 11/16/2024 1:00 PM EST Office Visit General Surgery at [place] [address] Paula Harris PA [facility] [place] [address] 01/26/2025 9:50 AM EDT Appointment Mammography/DXA at [place] [phone] Joan Deutsch, SPECIAL PROGRAMS DIRECTOR [facility] [place] [address] 01/26/2025 10:30 AM EDT Office Visit General Surgery at [place] [phone] Joan Deutsch, SPECIAL PROGRAMS DIRECTOR [facility] [place] [address] documented as of this encounter Visit Diagnoses Not on filedocumented in this encounter Care Teams Spa Receptionist Relationship Specialty Start Date End Date Mariluz Watts MD [address] [place] [address] PCP - General 08/22/10 documented as of this encounter
--- OUTSIDE RECORDS SUMMARY | 2024-07-02 16:40 | XMS_ITS | Encounter Summary ---
Author [facility] [place] [address] Care Team Providers Care Lead Java Programmer Name Role Phone Mariluz Watts MD Primary Care Provider [phone] Encounter Details Date Type Department Care Team (Late st Contact Info) Description 04/04/2010 Orders [place] [address] Gardenia Marquez MD [facility] [place] [address] Social History Tobacco Use Types Packs/Day Years Used Date Smoking Tobacco: Never Assessed [facility] Inpatient Questions Answer Date Recorded Does Anyone [...] [facility] [address] [place] [address] Charu Martin MD [facility] [place] [address] 11/16/2024 1:00 PM EST Office Visit General Surgery at [place] [phone] Paula Harris PA [facility] [place] [address] 01/26/2025 9:50 AM EDT Appointment Mammography[place] [address] Joan Deutsch APRN [facility] [address]DE[address] SURGERY [place], [place] [address] 01/26/2025 10:30 AM EDT Office Visit General Surgery at [place] [phone] Joan Deutsch [facility] [place] [address] documented as of this encounter Procedures Procedure Name Priority Date/Time Associated Diagnosis Comments SURGICAL PATHOLOGY REPORT Routine 04/04/2010 8:56 AM EDT documented in this encounter Results * Surgical Pathology Report (04/04/2010 8:56 AM EDT) Surgical Pathology Report [id number] ? Location: [facility] The signing pathologist has (i) examined the [...] CR-0 04/06/10 VAM 04/06/10 Verified by: ? Belinda STEINER, Devendra Dotson ?Pathologist ?(Electronic Signature) The attending pathologist whose signature appears on this report has reviewed all diagnostic slides and has edited the gross and/or microscopic portion of the report in rendering the final pathologic diagnosis. [facility] 04/04/2010 8:56 AM EDT Gardenia Marquez MD PATHOLOGY/CYTOLOGY ORDERABLES Performing Organization Address City/State/[facility] Co de Phone Number [facility] documented in this encounter Visit Diagnoses Not on filedocumented in this encounter Care Teams Lead Java Programmer Relationship Specialty Start Date End Date Mariluz Watts MD [address] [place] [address] PCP - General 08/22/10 documented as of this encounter
--- OUTSIDE RECORDS SUMMARY | 2024-07-02 16:40 | XMS_ITS | Encounter Summary ---
Author Organization [facility] Address [address] [place] [address] Care Team Providers Care Director Of Primary Name Role Phone Unavailable Primary Care Provider Unavailabl e Encounter Details Date Type Department Care Team ([facility] st Contact Info) Description 12/18/1999 Results Only [facility] - Maple conversion [address] [place] [address] Thea Charlton, FITTING ROOM CHECKER Social History Tobacco Use Types Packs/Day Years [...] ? DIAMOND GAMING ? Accession #: ? [id number] : ? 1945 (Age: 54) ??F ?Collect Date: ? 12/18/1999 Location: ?Receive Date: ? 12/18/1999 Provider: ?THEA CHARLTON NP Copy to: ?THEA CHARLTON NP ? Specimen/Source: ?Pap Smear (One Slide) Last Menstrual Period: ? GYNECOLOGIC ??CYTOPATHOLOGY ??REPORT Name: DIAMOND GAMING ? FA : 1945 ?? 54Y F ?Client ID: [id number] SS#: [id number] ? Clinician: TEMITOPE CHARLTON NP ?? Location: [facility] ??Copy to: ?? Specimen: ?Pap Smear [...] [place], SCT(ASCP) ? Report Date: ?? 12/21/1999 I Like My Waitress Archived Tests - Final Diagnosis Text Field: Clinical History : ? Document reviewed and electronically signed by: ? Conversion ? Report Date: ??12/21/1999 00:00 End of Report [facility] 12/18/1999 8:33 EST 12/18/1999 8:34 EST Thea Charlton FITTING ROOM CHECKER PATHOLOGY ORDERABLES [facility] [address] [place] [address] documented in this encounter Visit Diagnoses Not on filedocumented in this encounter
--- OUTSIDE RECORDS SUMMARY | 2024-07-02 16:40 | XMS_ITS | Encounter Summary ---
Author Organization [facility] Address [address] [place] [address] Care Team Providers Care Charge Entry Clerk Name Role Phone Unavailable Primary Care Provider Unavailabl e Encounter Details Date Type Department Care Team ([facility] st Contact Info) Description 12/25/2012 Results Only [facility] Laboratory Services - [facility] ([facility]) [address] [place], [place] [address] Mariluz Watts MD [facility] [address] [place] [phone] Social History Tobacco Use Types Packs/Day Years [...] ng unformatted reports. Name: ? LESA DIAMOND Marui ? Accession #: ? [id number] ? : ? 1945 (Age: 67) ??F [...] types 16,18,31,33,35, 39,45,51,52,56,58, 59,66, and 68 by wedding makeup artist mediated amplification. Comments Document reviewed and electronically signed by: ? System Interface ? Report date: 01/02/2013 By the signature above, the attending physician certifies that he/she has personally conducted a gross and/or microscopic examination of the described specimens and rendered or confirmed the above diagnosis. End of Report [facility] 12/25/2012 12/26/2012 Mariluz Watts MD PATHOLOGY ORDERABLE S [facility] [address] [place] [address] documented in this encounter Visit Diagnoses Not on filedocumented in this encounter
--- OUTSIDE RECORDS SUMMARY | 2024-07-02 16:40 | XMS_ITS | Encounter Summary ---
[place] [address] Care Team Providers Care Blast Furnace Supervisor Name Role Phone Mariluz Watts MD Primary Care Provider [phone] Reason for Visit * Reason Onset Date Comments Results 04/09/2011 Encounter Details Date Type Department Care Team (Late st Contact Info) Description 04/09/2011 Telephone Hematology [place] [address] Abrahan Merlos MD [facility] DR HEMATOLOGY/[place] [address] Results Social History Tobacco Use Types Packs/Day [...] 8:20 AM EST Office Visit Dermatology at [address] [place] [address] Charu Martin MD [facility] [place] [address] 11/16/2024 1:00 PM EST Office [place] [address] Paula Harris PA [facility] [place] [address] 01/26/2025 9:50 AM EDT Appointment Mammography/[place] [address] Joan Deutsch APRN [facility] [place] [address] 01/26/2025 10:30 AM EDT Office [place] [address] Joan Deutsch APRN [facility] [place] [address] documented as of this encounter Visit Diagnoses Not on filedocumented in this encounter Care Teams Blast Furnace Supervisor Relationship Specialty Start Date End Date Mariluz Watts MD [address] [place] [address] [address] [place] [address] PCP - General 08/22/10 documented as of this encounter
--- OUTSIDE RECORDS SUMMARY | 2024-07-02 16:40 | XMS_ITS | Encounter Summary ---
Author Organization [facility] Address [address] [place] [address] Care Team Providers Care Superintendent Distribution Name Role Phone Unavailable Primary Care Provider Unavailabl e Encounter Details Date Type Department Care Team (Latest Contact Info) Description 01/17/2000 13:45 EDT Hospital Encounter [address] [address] Thea Charlton, NUCLEAR RADIOLOGIST Discharge Disposition: Auto Discharge Social History Tobacco [...] Procedure Name Priority Date/Time Associated Diagnosis Comments PR MAMMOGRAPHIC SCREEN ANDRES Routine 01/17/2000 14:26 EDT [...]
--- OUTSIDE RECORDS SUMMARY | 2024-07-02 16:40 | XMS_ITS | Encounter Summary ---
Author Organization [facility] [place] [address] Care Team Providers Care Pocket Flap Creasing Machine Operator Name Role Phone Mariluz Watts MD Primary Care Provider [phone] Encounter Details Date Type Department Care Team (Late st Contact Info) Description 04/03/2011 Abstract [place] [address] Lindy Mata, RN Social History Tobacco Use Types Packs/Day [...] 8:20 AM EST Office Visit Dermatology at [facility] [address] [place] [address] Charu Martin MD [facility] [place] [address] 11/16/2024 1:00 PM EST Office Visit General Surgery at [place] [phone] Paula Harris PA [facility] [place] [address] 01/26/2025 9:50 AM EDT Appointment Mammography/[place] [address] Joan Deutsch APRN [facility] [place] [address] 01/26/2025 10:30 AM EDT Office Visit General Surgery at [place] [phone] Joan Deutsch, GE [facility] [place] [address] documented as of this encounter Visit Diagnoses Not on filedocumented in this encounter Care Teams Pocket Flap Creasing Machine Operator Relationship Specialty Start Date End Date Mariluz Watts MD [address] [facility] [place] [address] PCP - General 08/22/10 documented as of this encounter
--- OUTSIDE RECORDS SUMMARY | 2024-07-02 16:40 | XMS_ITS | Encounter Summary ---
Author Organization [facility] [place] [address] Care Team Providers Care Resident Care Spec Name Role Phone Mariluz Watts MD Primary Care Provider [phone] Encounter Details Date Type Department Care Team (Late st Contact Info) Description 04/13/2011 [place] [address] Zenaida Dixon, RN Social History Tobacco Use [...] 8:20 AM EST Office Visit Dermatology at [facility] [address] [place] [address] Charu Martin MD [facility] DR [place]G [place] [address] 11/16/2024 1:00 PM EST Office Visit General Surgery at [place] [phone] Paula Harris PA [facility] [place] [address] 01/26/2025 9:50 AM EDT Appointment Mammography/DXA at [place] [phone] Joan Deutsch, GE [facility] [place] [address] 01/26/2025 10:30 AM EDT Office Visit General Surgery at [place] [phone] Joan Deutsch, GE [facility] [place] [address] documented as of this encounter Visit Diagnoses Not on filedocumented in this encounter Care Teams Resident Care Spec Relationship Specialty Start Date End Date Mariluz Watts MD [address] [place] [address] PCP - General 08/22/10 documented as of this encounter
--- OUTSIDE RECORDS SUMMARY | 2024-07-02 16:40 | XMS_ITS | Encounter Summary ---
[place] [address] Care Team Providers Care Fixture Repairer Fabricator Name Role Phone Mariluz Watts MD Primary Care Provider [phone] Encounter Details Date Type Department Care Team (Latest Contact Info) Description 03/27/2011 7:52 AM EDT - 03/27/2011 3:15 PM EDT Hospital Encounter [place] [address] Ruben Oconnor MD [address] [place] [address] Breast cancer, stage 2 Discharge Disposition: Home [...] Discharge Instructions * Discharge Instructions* Francisco Javier Hernandez RN - 03/27/2011 1:08 PM EDT POST [...] in 12-24 hours. * Patient Instructions* Stan Hebert - 03/27/2011 10:19 AM EDT OK to [...] - 03/28/2011 1:56 PM EDT * Harini William APRN - 03/27/2011 10:06 AM EDT No changes in health since H&P with PCP Dr. Watts 03/13/2011. History of breast cancer with resection and breast reduction for symmetry. To OR for excision of dog ears bilateral breasts. documented in this encounter Miscellaneous Notes * Op Note - Ruben Oconnor MD - 03/29/2011 3:17 PM EDT PREOPERATIVE [...] dressing. * Brief Op Note - Ruben Oconnor MD - 03/29/2011 3:17 PM EDT See op note * Miscellaneous - Provider, Scanning - 03/28/2011 9:16 AM EDT * Miscellaneous - Provider, Scanning - 03/28/2011 9:13 AM EDT * Brief Op Note - Stan Hebert - 03/27/2011 12:01 PM EDT Brief Operative Note Patient Name: Diamond Gaming : [id number] MR#: [id number] Case Date: 03/27/2011 Surgeon: Surgeon(s) and Role: * RUBEN OCONNOR MD - Primary * STAN HEBERT MD - Surgeon Francesco * HARINI WILLIAM APRN Preoperative diagnosis: bilateral unsatisfactory scarring Postoperative [...] AM EDT * OR Attestation - Ruben Oconnor MD - 03/27/2011 12:00 AM EDT I was the attending physician supervising the resident in the above care and I was present with theresident for the entire procedure. * OR Attestation - Ruben Oconnor MD - 03/27/2011 12:00 AM EDT Attestation: Case Date: 03/27/2011 I performed this procedure without the involvement of a resident. RUBEN OCONNOR documented in this encounter Plan of Treatment Upcoming Encounters Date Type Department Care Team (Late st Contact Info) Description 08/05/2024 8:20 AM EST Office Visit Dermatology at [address] [address] Charu Martin MD [facility] [place] [address] 11/16/2024 1:00 PM EST Office Visit General Surgery at [place] [phone] Paula Harris PA [facility] [place] [address] 01/26/2025 9:50 AM EDT Appointment Mammography/[place] [address] Joan Deutsch APRN [facility] [place] [address] 01/26/2025 10:30 AM EDT Office Visit General Surgery at [place] [phone] Joan Deutsch APRN [facility] [place] [place] [address] documented as of this encounter Procedures Procedure [...] 1228, Until Sat03/27/11 at 1230, FRANCISCO JAVIER HERNANDEZ: Cabinet Override fentaNYL 50mcg/mL injection 25-50 mcg, [...] at 0843, Until Sat03/27/11 at 0847, MEKHI MCNEAL: Cabinet Override documented in this encounter Active and Recently Administered Medications Times are shown in EDT. Scheduled Medication Order 03/25/2011 03/26/2011 03/27/2011 scopolamine (TRANSDERM-SCOP) 1.5 mg patch 1 patch (COMPLETED) 1 patch, Transdermal, ONCE, 1 dose, On Sat03/27/11 at 0915, Day of Surgery (Day of Procedure), Routine 0845 (Given - Provid er: Mekhi Mcneal RN)0915 (Due) Continuous Medication Order 03/25/2011 03/26/2011 03/27/2011 lactated ringers infusion 1,000 mL (CANCELED) 1,000 mL, at 100 mL/hr, Intravenous, CONTINUOUS, Starting on Sat03/27/11 at 0845, Until Sat03/27/11 at 1905, Day of Surgery (Day of Procedure) 0845 (Due)1213 (New Bag - Provider: Francisco Javier Hernandez, RN) PRN Medication Order 03/25/2011 03/26/2011 03/27/2011 BUpivacaine-epiNEPHrine 0.25 %-1:200,000 injection (COMPLETED) ONCE PRN, 1 dose, Starting on Sat03/27/11 at 1125, Until Sat03/27/11 at 1125, Intra-Operative (Intra-Procedure), Routine 1125 (Given - Provid er: Stan Hebert) fentaNYL 50mcg/mL injection (CANCELED) 25-50 mcg, Intravenous, EVERY 5 MIN PRN, Starting on Sat03/27/11 at 1212, Until Sat03/27/11 at 1905, Pain, for breakthrough pain, Hold for respiratory rate less than 10 per minute. Maximum dose: 250 mcg over one hour., PACU Recovery, Routine 1230 (Given - Provid er: Francisco Javier Hernandez RN)1250 (Given - Provider: Francisco Javier Hernandez RN) OXYcodone (ROXICODONE) immediate release tablet 5 mg (CANCELED) 5 mg, Oral, EVERY 4 HOURS PRN, Starting on e 03/27/11 at 1017, Until 03/27/11 at 1905, Pain, May repeat once after 30-60 minutes if pain unrelieved., Routine 1330 (Given - Provid er: Mekhi Mcneal RN) prochlorperazine (COMPAZINE) injection 5 mg (CANCELED)(Linked Group 1) 5 mg, Intravenous, EVERY 30 MIN PRN, 2 doses, Starting on e 03/27/11 at 1212, Until Sat03/27/11 at 1905, Nausea, May repeat 5 mg once in 30 minutes. Consider metoclopramide if ineffective., PACU Recovery, Routine 1341 (Given - Provid er: Mekhi Mcneal RN) Linked Groups Order Group 1: ondansetron (ZOFRAN) injection 4 mg (CANCELED) 4 mg, Intravenous, EVERY 30 MIN PRN, 2 doses, Starting on e 03/27/11 at 1212, Until 03/27/11 at 1905, Nausea, May repeat 4 mg once in 30 minutes. Consider prochlorperazine if ineffective., PACU Recovery, Routine Or prochlorperazine (COMPAZINE) injection 5 mg (CANCELED)Jump to med 5 mg, Intravenous, EVERY 30 MIN PRN, 2 doses, Starting on e 03/27/11 at 1212, Until 03/27/11 at 1905, Nausea, May repeat 5 mg once in 30 minutes. Consider metoclopramide if ineffective., PACU Recovery, Routine Or metoclopramide (REGLAN) injection 10 mg (CANCELED) 10 mg, Intravenous, EVERY 30 MIN PRN, 2 doses, Starting on e 03/27/11 at 1212, Until 03/27/11 at 1905, Nausea, Avoid in patients greater than 60 years old., PACU Recovery, Routine documented in this encounter Care Teams Fixture Repairer Fabricator Relationship Specialty Start Date End Date Mariluz Watts MD [address] [place] [address] [address] [facility] [place] [address] PCP - General 08/22/10 documented as of this encounter
--- OUTSIDE RECORDS SUMMARY | 2024-07-02 16:40 | XMS_ITS | Encounter Summary ---
Author Organization [facility] Address [address] [place] [address] Care Team Providers Care Dispatcher Service Or Work Name Role Phone Mariluz Watts MD Primary Care Provider [phone] Encounter Details Date Type Department Care Team (Late st Contact Info) Description 12/14/2022 Lab Requisition [facility] Pathology & Laboratory Medicine - [facility] [address] [place] [address] Mariluz Watts MD [address] [place] [address] [address] [place] [phone] Encounter for other general examination Social History [...] types, PCR Negative Negative 12/25/2022 15:51 EDT [facility] Comment:No E6 or E7 mRNA is detected from HPV types 16,18,31,33,35,39,45,51,52,56,58,59,66, and 68 by financial manager mediated amplification. Papanicolaou smear specimen (specimen) CERVIX UTERI STRUCTURE / Unknown 12/10/2022 11:30 EDT 12/23/2022 10:39 EDT Mariluz Watts MD MICROBIOLOGY - [facility] ORDERABLES [facility] [address] [place] [address] * PAP TEST (12/10/2022 11:30 EDT) Specimens A. Cervix and/or Endocervix , ThinPrep Imaging System with Manual Evaluation 12/25/2022 15:51 T [facility] Specimen Adequacy Satisfactory for Evaluation - assessment of transformation zone component not applicable ( e.g. atrophy, vaginal sample, hysterectomy) 12/25/2022 15:51 [facility] General Categorization Negative for intraepithelial lesion or malignancy 12/25/2022 15:51 [facility] Attestation . 12/25/2022 15:51 [facility] at 1551 Clinical History See below 12/26/19 23 15:51 [facility] HPV The result for the Human Papillomavirus (HPV) Detection-High Risk Types is Negative. No E6 or E7 mRNA is detected from HPV types 16,18,31,33,35,39 ,45,51,52,56,58,5 9,66, and 68 by financial manager mediated amplification.Ange ting was performed on specimen [id number] and was resulted on 12/25/2022 1551 EDT by GINETTE, LAB INSTRUMENT RESULTS IN 12/25/2022 15:51 T [facility] Performing Lab [facility] 12/25/2022 15:51 [facility] Scanned Images 12/25/2022 15:51 [facility] Papanicolaou smear specimen (specimen) CERVIX UTERI STRUCTURE / Unknown 12/10/2022 11:30 EDT 12/14/2022 9:18 EDT Mariluz Watts MD PATHOLOGY ORDERABLE S [facility] [address] [place] [address] documented in this encounter Visit Diagnoses Diagnosis Encounter for other general examination documented in this encounter Care Teams Dispatcher Service Or Work Relationship Specialty Start Date End Date Mariluz Watts MD [address] [place] [phone] PCP - General Family Medicine - Primary Care 12/26/22 documented as of this encounter
--- OUTSIDE RECORDS SUMMARY | 2024-07-02 16:40 | XMS_ITS | Referral Summary ---
Author Organization [facility] Address [address] [place] [address] Care Team Providers Care Escrow Processor Name Role Phone Mariluz Watts MD Primary Care Provider [phone] Social History Tobacco Use Types Packs/Day Years Used Date Smoking Tobacco: Never Assessed Sex and Gender Information Value Date Recorded Sex Assigned at Not on file Gender Identity Not on file Sexual Orientation Not on file Plan of Treatment Not on file Care Teams Escrow Processor Relationship Specialty Start Date End Date Mariluz Watts MD [address] [place] [address] [address] [place] [phone] PCP - General Family Medicine - Primary Care 12/26/22
--- OUTSIDE RECORDS SUMMARY | 2024-07-02 16:40 | XMS_ITS | Encounter Summary ---
Author Organization [facility] Address [address] [place] [address] Care Team Providers Care Solar Sales Rep Name Role Phone Mariluz Watts MD Primary Care Provider [phone] Encounter Details Date Type Department Care Team ([facility] st Contact Info) Description 05/12/2021 Lab Requisition [facility] Pathology & Laboratory Medicine - [address] [address] Outr Resulting Lab, Provider Social History Tobacco [...] Neg and Giardia Antigen Neg 11:50 EDT [facility] Feces SPECIMEN FROM RECTUM / Unknown 05/11/2021 19:50 EDT 05/12/2021 16:43 EDT Provider Outr Resulting Lab MICROBIOLOGY - GENERAL ORDERABLES [facility] [address] [place] [address] documented in this encounter Visit Diagnoses Not on filedocumented in this encounter Care Teams Solar Sales Rep Relationship Specialty Start Date End Date Mariluz Watts MD [address] [place] [address] PCP - General Family Medicine - Primary Care 12/26/22 documented as of this encounter
--- OUTSIDE RECORDS SUMMARY | 2024-07-02 16:40 | XMS_ITS | Encounter Summary ---
Author Organization [facility] Address [address] [place] [address] Care Team Providers Care Gi Asst Name Role Phone Unavailable Primary Care Provider Unavailabl e Encounter Details Date Type Department Care Team ([facility] st Contact Info) Description 05/02/2017 Results Only [facility] [phone] Mariluz Watts MD [address] [facility] [facility] [address] [place] [address] Social History Tobacco Use Types [...] ? DIAMOND GAMING ? Accession #: ? [id number] ? : ? 1945 (Age: 71) ??F [...] ?? Menstrual/Pregnanc y Status: ??Post Menopausal Other: Distance Learning Administrator Clinical/Treatment Hx - None Additional clinical information: [...] types 16,18,31,33,35, 39,45,51,52,56,58, 59,66, and 68 by tobacco warehouse agent mediated amplification. Comments Document reviewed and electronically [...] MD PATHOLOGY ORDERABLE S Performing Organization Address City/State/[facility] Co de Phone Number [facility] [address] [place] [address] documented in this encounter Visit Diagnoses Not on filedocumented in this encounter
--- OUTSIDE RECORDS SUMMARY | 2024-07-02 16:40 | XMS_ITS | Encounter Summary ---
Author Organization [facility] [place] [address] Care Team Providers Care Plant Guard Name Role Phone Mariluz Watts MD Primary Care Provider [phone] Encounter Details Date Type Department Care Team (Late Contact Info) Description 03/06/2005 Orders Only Orthopaedics at [facility] [address] [place] [address] Kian Ervin MD [address] [place] [address] Social History Tobacco Use Types Packs/Day Years [...] [facility] [address] [place] [address] Charu Martin MD [facility] DR [address] [place] [address] 11/16/2024 1:00 PM EST Office [place] [address] Paula Harris PA [facility] [place] [address] 01/26/2025 9:50 AM EDT Appointment Mammography/[place] [address] Joan Deutsch, GE [facility] [place] [address] 01/26/2025 10:30 AM EDT Office [place] [phone] Joan Deutsch, [facility] [place] [address] documented as of this encounter Procedures Procedure Name Priority Date/Time Associated Diagnosis Comments SURGICAL PATHOLOGY REPORT Routine 03/06/2005 1:39 PM EDT documented in this encounter Results * Surgical Pathology Report (03/06/2005 1:39 PM EDT) Surgical Pathology Report [id number] ? Location: 3WST; 0304; B The signing pathologist has (i) [...] on filedocumented in this encounter Care Teams Plant Guard Relationship Specialty Start Date End Date Mariluz Watts MD [address] [facility] [place] [address] PCP - General 08/22/10 documented as of this encounter
--- OUTSIDE RECORDS SUMMARY | 2024-07-02 16:40 | XMS_ITS | Encounter Summary ---
Author Organization [facility] Address [address] [place] [address] Care Team Providers Care Retail Support Specialist Name Role Phone Mariluz Watts MD Primary Care Provider [phone] Encounter Details Date Type Department Care Team ([facility] st Contact Info) Description 12/31/2023 Lab Requisition [facility] Pathology & Laboratory Medicine - [address] [address] Outr Resulting Lab, Provider Social History Tobacco [...] Neg and Giardia Antigen Neg 11:14 EDT [facility] Feces SPECIMEN FROM RECTUM / Unknown 12/31/2023 11:30 EDT 12/31/2023 21:53 EDT Provider Outr Resulting Lab MICROBIOLOGY - GENERAL ORDERABLES Performing Organization Address City/[facility] Co de Phone Number [facility] [address] [place] [address] * FECAL BACTERIAL PATHOGENS BY PCR (12/31/2023 11:30 EDT) Salmonella PCR Negative Negative 01/01/2024 15:04 EDT [facility] Shigella/Enteroin vasive E. coli Negative Negative 01/01/2024 15:04 EDT [facility] HN LAB CAMPYLOBACTER PCR Negative Negative 01/01/2024 15:04 EDT [facility] Shiga Toxin PCR Negative Negative 15:04 EDT [facility] Feces SPECIMEN FROM RECTUM / Unknown 12/31/2023 11:30 EDT 12/31/2023 21:53 EDT Provider Outr Resulting Lab MICROBIOLOGY - GENERAL ORDERABLES Performing Organization Address City/[facility] Co de Phone Number [facility] [address] [place] [address] documented in this encounter Visit Diagnoses Not on filedocumented in this encounter Care Teams Retail Support Specialist Relationship Specialty Start Date End Date Mariluz Watts MD [address] [place] [address] PCP - General Family Medicine - Primary Care 12/26/22 documented as of this encounter
--- OUTSIDE RECORDS SUMMARY | 2024-07-02 16:40 | XMS_ITS | Encounter Summary ---
Author Organization [facility] [place] [address] Care Team Providers Care Wood Tile Installation Helper Name Role Phone Mariluz Watts MD Primary Care Provider [phone] Encounter Details Date Type Department Care Team (Latest Contact Info) Description 10/26/2010 12:42 PM EST - 10/26/2010 11:59 PM [facility] Hospital Encounter [place]ology [place] [address] Abrahan Merlos MD [facility] HEMATOLOGY/[place] [address] Discharge Disposition: Home Social History Tobacco Use [...] [facility] [address] [place] [address] Charu Martin MD [facility] [place] [address] 11/16/2024 1:00 PM EST Office Visit General Surgery at [place] [phone] Paula Harris PA [facility] [place] [address] 01/26/2025 9:50 AM EDT Appointment Mammography/[place] [address] Joan Deutsch PRODUCTION EXPEDITER [facility] [place] [address] 01/26/2025 10:30 AM EDT Office [place] [address] Joan Deutsch PRODUCTION EXPEDITER [facility] [place] [address] documented as of this encounter Visit Diagnoses Not on filedocumented in this encounter Care Teams Wood Tile Installation Helper Relationship Specialty Start Date End Date Mariluz Watts MD [address] [place] [address] [address] [place] [address] PCP - General 08/22/10 documented as of this encounter
--- OUTSIDE RECORDS SUMMARY | 2024-07-02 16:40 | XMS_ITS | Encounter Summary ---
[place] [address] Care Team Providers Care Per Diem Physical Therapist Assistant Name Role Phone Mariluz Watts MD Primary Care Provider [phone] Encounter Details Date Type Department Care Team (Late st Contact Info) Description 02/09/2010 [place] [address] Bella Dowling MD [facility] [place] [address] Social History Tobacco Use Types Packs/Day Years [...] [facility] [address] [place] [address] Charu Martin MD [facility] [place] [address] 11/16/2024 1:00 PM EST Office Visit General Surgery at [place] [phone] Paula Harris PA [facility] [place] [place] [address] 01/26/2025 9:50 AM EDT Appointment Mammography[place] [address] Joan Deutsch APRN [facility] [place] [place] [address] 01/26/2025 10:30 AM EDT Office Visit General Surgery at [place] [phone] Joan Deutsch [facility] [place] [address] documented as of this encounter Procedures Procedure Name Priority Date/Time Associated Diagnosis Comments SURGICAL PATHOLOGY REPORT Routine 02/09/2010 11:33 AM EDT documented in this encounter Results * Surgical Pathology Report (02/09/2010 11:33 AM EDT) Surgical Pathology Report [id number] ? Location: 3K The signing pathologist has [...] CR-0 02/10/10 XL 02/10/10 Verified by: ? Sweetie Bright MD ?Pathologist ?(Electronic Signature) The attending pathologist whose signature appears on this report has reviewed all diagnostic slides and has edited the gross and/or microscopic portion of the report in rendering the final pathologic diagnosis. Comment Deeper levels on A2 examined. VALERIE TOPETE 02/09/2010 11:3 3 AM EDT Bella Dowling MD PATHOLOGY/CYTOLOGY O RDERABLES [facility] documented in this encounter Visit Diagnoses Not on filedocumented in this encounter Care Teams Per Diem Physical Therapist Assistant Relationship Specialty Start Date End Date Mariluz Watts MD [address] [place] [address] PCP - General 08/22/10 documented as of this encounter
--- OUTSIDE RECORDS SUMMARY | 2024-07-02 16:40 | XMS_ITS | Encounter Summary ---
Author Organization [facility] Address [address] [place] [address] Care Team Providers Care Frog Or Oyster Farmworker Name Role Phone Mariluz Watts MD Primary Care Provider [phone] Encounter Details Date Type Department Care Team ([facility] st Contact Info) Description 01/17/2022 Lab Requisition [facility] Pathology & Laboratory Medicine - [address] [address] Outr Resulting Lab, Provider Social History Tobacco [...] Lab MICROBIOLOGY - GENERAL ORDERABLES [facility] [address] [place] [address] * COVID-19 TESTING (01/16/2022 20:11 EDT) COVID-19 rt-PCR Result Negative Negative 01/18/2022 12:27 EDT [facility] Comment: This test has not [...] was performed using the shanelle SARS-CoV-2 assay ([employer] on the Shanelle 6800 System Performing Lab Shanelle 6800 [facility] 01/18/2022 12:27 EDT [facility] Swab 01/16/2022 20:1 1 EDT 01/17/2022 20:09 EDT Provider Outr Resulting Lab MICROBIOLOGY - GENERAL ORDERABLES [facility] [address] [place] [address] documented in this encounter Visit Diagnoses Not on filedocumented in this encounter Care Teams Frog Or Oyster Farmworker Relationship Specialty Start Date End Date Mariluz Watts MD [address] [place] [phone] PCP - General Family Medicine - Primary Care 12/26/22 documented as of this encounter
--- OUTSIDE RECORDS SUMMARY | 2024-07-02 16:40 | XMS_ITS | Encounter Summary ---
Author Organization [facility] Address [address] [place] [address] Care Team Providers Care Nursing Consultant Name Role Phone Unavailable Primary Care Provider Unavailabl e Encounter Details Date Type Department Care Team ([facility] st Contact Info) Description 12/06/2008 Before PRISM Converted Visit (Maple) [facility] - Maple conversion [address] [place] [address] Mariluz Watts MD [address] [place] [phone] Social History Tobacco Use Types Packs/Day Years [...] GENE RAL ORDERABLES [facility] [address] [place] [address] * CYTOPATHOLOGY (12/06/2008 0:00 EDT) Pathology Report: CYTOPATHOLOGY REPORT ? Reports generated via electronic interface contain original data; ? however they are lacking the format of the original report. ? Caution should be taken when reading/interpreti ng unformatted reports. ? Name: ? DIAMOND GAMING ? Accession #: ? [id number] ? : ? 1945 (Age: 62) ??F ?Collect Date: ? 12/06/2008 ? Location: ? [facility] ? Receive Date: ? 12/07/2008 ? Provider: ?MARILUZ M DOBBERTIN MD ? Copy to: ? Specimen/Source: ?Pap Test, Endocervix, ThinPrep Imaging System with ? manual evaluation ? 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 INFORMATION ARCHITECT ? Other: ? HPVDX - HPV testing [...] PATHOLOGY ORDERABLE S [facility] [address] [place] [address] documented in this encounter Visit Diagnoses Not on filedocumented in this encounter
--- OUTSIDE RECORDS SUMMARY | 2024-07-02 16:40 | XMS_ITS | Encounter Summary ---
Author Organization [facility] Address [address] [place] [address] Care Team Providers Care Regional Commercial Sales Manager Name Role Phone Unavailable Primary Care Provider Unavailabl e Encounter Details Date Type Department Care Team ([facility] st Contact Info) Description 02/05/2001 Results Only [facility] - Maple conversion [address] [place] [address] Thea Charlton, WAFER FABRICATION OPERATOR Social History Tobacco Use Types Packs/Day Years [...] ? DIAMOND GAMING ? Accession #: ? [id number] : ? 1945 (Age: 55) ??F ?Collect Date: ? 02/05/2001 Location: ? [facility] ? Receive Date: ? 02/06/2001 Provider: ?THEA CHARLTON WAFER FABRICATION OPERATOR Copy to: ? Specimen/Source: ?Conventional Pap Test, Cervix/Endocervix Last Menstrual Period: ? 12/22/00 ? SPECIMEN ADEQUACY ? Satisfactory for evaluation. GENERAL CATEGORIZATION ? Within Normal Limits ? Document reviewed and electronically signed by: ? Julianne Whitehead, SCT(ASCP) ? Report Date: ??02/07/2001 10:09 End of Report [facility] 02/05/2001 02/06/2001 Thea Charlton NP PATHOLOGY ORDERABLES [facility] [address] [place] [address] documented in this encounter Visit Diagnoses Not on filedocumented in this encounter
--- OUTSIDE RECORDS SUMMARY | 2024-07-02 16:40 | XMS_ITS | Encounter Summary ---
Author Organization [facility] [place] [address] Care Team Providers Care Crap Game Box Person Name Role Phone Mariluz Watts MD Primary Care Provider Encounter Details Date Type Department Care Team (Late st Contact Info) Description 10/26/2010 10:30 AM EST Procedure visit [place] [address] Social History Tobacco Use Types Packs/Day Years [...] at [facility] [address] [place] [address] Charu Martin MD [facility] [place] [address] 11/16/2024 1:00 PM EST Office [place] [phone] Paula Harris PA [facility] [place] [address] 01/26/2025 9:50 AM EDT Appointment Mammography/[place] [phone] Joan Deutsch, GE [facility] [place] [address] 01/26/2025 10:30 AM EDT Office [place] [phone] Joan Deutsch, [facility] [place] [address] documented as of this encounter Visit Diagnoses Not on filedocumented in this encounter Care Teams Crap Game Box Person Relationship Specialty Start Date End Date Mariluz Watts MD [address] [place] [address] PCP - General 08/22/10 documented as of this encounter
--- OUTSIDE RECORDS SUMMARY | 2024-07-02 16:40 | XMS_ITS | Encounter Summary ---
[place] [address] Care Team Providers Care Automotive Electrician Name Role Phone Mariluz Watts MD Primary Care Provider [phone] Reason for Visit * Reason Onset Date Comments Medication Refill 08/14/2011 Encounter Details Date Type Department Care Team (Late st Contact Info) Description 08/14/2011 Refill Hematology [place] [address] Gemini Felton RN Breast cancer, stage 2 [...] like the script mailed to her , [facility] are aware. Started May 28, 2010 Last seen 04/06/11 by , script generated. Patient changing pharmacy. Pended for approval and signature then e-scribed to [facility] outpatient pharmacy. * Telephone Encounter - [...] any questions she works [facility] @ [facility] [address]. documented in this encounter Plan of Treatment Upcoming Encounters Date Type Department Care Team (Late st Contact Info) Description 08/05/2024 8:20 AM EST Office Visit Dermatology at [address] [address] Charu Martin MD [facility] [address] [place] [address] 11/16/2024 1:00 PM EST Office [place] [phone] Paula Harris PA [facility] [place] [address] 01/26/2025 9:50 AM EDT Appointment Mammography/[place] [phone] Joan Deutsch APRN [facility] [place] [address] 01/26/2025 10:30 AM EDT Office [place] [address] Joan Deutsch APRN [facility] [place] [address] documented as of this encounter Visit Diagnoses Diagnosis Breast cancer, stage 2 Malignant neoplasm of breast (female), unspecified site documented in this encounter Care Teams Automotive Electrician Relationship Specialty Start Date End Date Mariluz Watts MD [address] [place] [address] PCP - General 08/22/10 documented as of this encounter
--- OUTSIDE RECORDS SUMMARY | 2024-07-02 16:40 | XMS_ITS | Encounter Summary ---
[place] [address] Care Team Providers Care Founder Ceo & President Name Role Phone Mariluz Watts MD Primary Care Provider [phone] Encounter Details Date Type Department Care Team (Late st Contact Info) Description 01/25/2010 [place] [address] Cece Marrero MD [facility] [place] [address] Social History Tobacco Use Types Packs/Day Years [...] Visit Dermatology at [facility] [address] [place] [address] Charu Martin MD [facility] [place] [address] 11/16/2024 1:00 PM EST Office Visit General Surgery at [place] [phone] Paula Harris PA [facility] [place] [address] 01/26/2025 9:50 AM EDT Appointment Mammography/DXA at [place] [phone] Joan Deutsch APRN [facility] [place] [address] 01/26/2025 10:30 AM EDT Office Visit General Surgery at [place] [phone] Joan Deutsch APRN [facility] [place] [address] documented as of this encounter Procedures Procedure Name Priority Date/Time Associated Diagnosis Comments SURGICAL PATHOLOGY REPORT Routine 01/25/2010 11:49 AM EDT documented in this encounter Results * Surgical Pathology Report (01/25/2010 11:49 AM EDT) Surgical Pathology Report [id number] ? Location: [facility] The signing pathologist has (i) examined the relevant preparation(s) for the specimen(s) and (ii) rendered or confirmed the diagnosis(es). . ?Pathology Surgical Pathology Final Report Clinical Information Specimen Submitted: A - Les 1 of , right breast, us Clinical History: Spiculated mass Clinical Diagnosis: Invasive Ca Gross Description Labeled/Fixativ e: ? Right breast lesion 1 of 1, formalin. Qty/Size/Weight : ?Two needle core biopsies, 1.5 cm and 2.2 cm. ?Cylindrical cores of bonilla-white and yellow-white, ?fatty and fibrofatty tissue. Sections/Proces sing: ??(T1) ??aje/EJR Microscopic Description Slides reviewed, microscopic description not recorded. Diagnosis Needle biopsies: ?Right breast, lesion 1 of . 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 Microcalcificat ions: ??NA. CR-0 01/26/10 [facility] 01/26/10 Verified by: ? Black DO, Marilu Marinelli ?Pathologist ?(Electronic Signature) The attending pathologist whose signature appears on this report has reviewed all diagnostic slides and has edited the gross and/or microscopic portion of the report in rendering the final pathologic diagnosis. VALERIE TOPETE 01/25/2010 11:4 9 AM EDT Cece Marrero MD PATHOLOGY/CYTOLOGY O RDERABLES VALERIE TOPETE documented in this encounter Visit Diagnoses Not on filedocumented in this encounter Care Teams Founder Ceo & President Relationship Specialty Start Date End Date Mariluz Watts MD [address] [place] [address] PCP - General 08/22/10 documented as of this encounter
--- OUTSIDE RECORDS SUMMARY | 2024-07-02 16:40 | XMS_ITS | Clinical Summary ---
Author Organization [facility] Address [address] [place] [address] Care Team Providers Care Police Records Clerk Name Role Phone Mariluz Watts MD Primary Care Provider [phone] Social History Tobacco Use Types Packs/Day Years [...] COVID-19 Vaccine ( season) 2023 Care Teams Police Records Clerk Relationship Specialty Start Date End Date Mariluz Watts MD [address] [place] [phone] PCP - General Family Medicine - Primary Care 12/26/22
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
--- OUTSIDE RECORDS SUMMARY | 2024-07-02 16:40 | XMS_ITS | Encounter Summary ---
Author Organization [facility] Address [address] [place] [address] Care Team Providers Care Specimen Transporter Name Role Phone Mariluz Watts MD Primary Care Provider [phone] Encounter Details Date Type Department Care Team ([facility] st Contact Info) Description 05/12/2021 Lab Requisition [facility] Pathology & Laboratory Medicine - [address] [address] Outr Resulting Lab, Provider Social History Tobacco [...] Salmonella PCR Negative Negative 05/12/2021 21:36 EDT [facility] Shigella/Enteroin vasive E. coli Negative Negative 05/12/2021 21:36 EDT [facility] HN LAB CAMPYLOBACTER PCR Negative Negative 05/12/2021 21:36 EDT [facility] Shiga Toxin PCR Negative Negative 21:36 EDT [facility] Feces SPECIMEN FROM RECTUM / Unknown 05/11/2021 19:50 EDT 05/12/2021 16:44 EDT Provider Outr Resulting Lab MICROBIOLOGY - GENERAL ORDERABLES [facility] [address] [place] [address] documented in this encounter Visit Diagnoses Not on filedocumented in this encounter Care Teams Specimen Transporter Relationship Specialty Start Date End Date Mariluz Watts MD [address] [place] [address] [address] [place] [address] PCP - General Family Medicine - Primary Care 12/26/22 documented as of this encounter
--- OUTSIDE RECORDS SUMMARY | 2024-07-02 16:40 | XMS_ITS | Encounter Summary ---
Author Organization [facility] Address [address] [place] [address] Care Team Providers Care Computer Programmer Chief Name Role Phone Mariluz Watts MD Primary Care Provider [phone] Encounter Details Date Type Department Care Team ([facility] st Contact Info) Description 05/12/2021 Lab Requisition [facility] Pathology & Laboratory Medicine - [address] [address] Outr Resulting Lab, Provider Social History Tobacco [...] ova and parasites seen. 05/15/2021 14:51 EDT [facility] Feces SPECIMEN FROM RECTUM / Unknown 05/11/2021 19:50 EDT 05/12/2021 16:44 EDT Narrative [facility] - 05/15/2021 14:51 EDT (If Cryptosporidium, Cyclospora, or Microsporidium are suspected, specific tests must be requested.) Single negative specimen does not rule out the possibility of a parasitic infection. Provider Outr Resulting Lab MICROBIOLOGY - GENERAL ORDERABLES [facility] [address] [place] [address] documented in this encounter Visit Diagnoses Not on filedocumented in this encounter Care Teams Computer Programmer Chief Relationship Specialty Start Date End Date Mariluz Watts MD [address] [place] [phone] PCP - General Family Medicine - Primary Care 12/26/22 documented as of this encounter
--- OUTSIDE RECORDS SUMMARY | 2024-07-02 16:40 | XMS_ITS | Encounter Summary ---
Author Organization [facility] Address [address] [place] [address] Care Team Providers Care Certified Executive Chef Name Role Phone Unavailable Primary Care Provider Unavailabl e Encounter Details Date Type Department Care Team (Latest Contact Info) Description 03/12/2001 7:45 EDT - 03/12/2001 11:59 EDT Hospital Encounter [facility] - [address] [address] Celia Modi CFNP Discharge Disposition: Auto Discharge [...]
--- OUTSIDE RECORDS SUMMARY | 2024-07-02 16:40 | XMS_ITS | Encounter Summary ---
Author [facility] [place] [address] Care Team Providers Care Merit System Director Name Role Phone Mariluz Watts MD Primary Care Provider [phone] Reason for Visit * Reason Comments Follow Up Surgery Encounter Details Date Type Department Care Team (Late st Contact Info) Description 04/16/2011 3:45 PM EDT [place] [address] Harini Muhammad, [facility] [place] [address] Other specified aftercare following surgery (Primary Dx) [...] - 04/16/2011 3:55 PM EDT Welcome to Chipolo, your secure online access to your electronic medical record at [facility]. Using Chipolo you will be able to send messages to your providers, view your test results, renew prescriptions, schedule appointments, and much more. Follow these instructions to enter your personal Chipolo account for the first time: 1. Start your internet browser. Go to [email or web address] and click on the Chipolo link. 2. Click SIGN UP NOW to go to the NEW MEMBER SIGN UP page. 3. Enter your Chipolo Access Code exactly as it appears below. (You will not need this access code after you have completed the sign-up process.) ?? Your Chipolo Access Code: [email or web address] ?? Expires: 05/18/11 04:20 PM ?? IMPORTANT: This Access Code will on the above mentioned date. If you do not sign up before this date, you will need to request a new Access Code number. 4. Enter your Date of (mm/dd/yyyy) and zip code click SUBMIT to go to the next page. 5. Create a Chipolo identification (ID). This will be your Chipolo login ID and cannot be changed, so [...] know when new information is available in Chipolo. 9. Click SIGN UP to complete the process. You can now view your electronic medical record. If you have any questions about Chipolo or your Access Code, please call for [place], for [place] or for [place]. If you need technical support, please e-mail [email or web address]. Remember, [employer]-H is NOT for urgent needs! Always dial 911 for medical emergencies. documented in this encounter Progress Notes * Harini Muhammad APRN - 04/16/2011 4:28 PM EDT PLASTIC SURGERY OFFICE NOTE [employer] returned to our office today for post surgical follow-up Date of Surgery: 03/27/2011 Operation: excision of dog ears Complications: none Pain: 3/10 Specific complaints/comments: Patient complains of dog ear [...] AM EST Office Visit Dermatology at [address] [address] Charu Martin MD [facility] [place] [address] 11/16/2024 1:00 PM EST Office [place] [phone] Paula Harris PA [facility] [place] [address] 01/26/2025 9:50 AM EDT Appointment Mammography/[place] [address] Joan Deutsch APRN [facility] [place] [address] 01/26/2025 10:30 AM EDT Office [place] [address] Joan Deutsch, GE [facility] [place] [address] documented as of this encounter Visit Diagnoses Diagnosis Other specified aftercare following surgery- Primary documented in this encounter Care Teams Merit System Director Relationship Specialty Start Date End Date Mariluz Watts MD [address] [place] [address] PCP - General 08/22/10 documented as of this encounter
--- OUTSIDE RECORDS SUMMARY | 2024-07-02 16:40 | XMS_ITS | Encounter Summary ---
Author Organization [facility] [place] [address] Care Team Providers Care Stacker Tender Name Role Phone Mariluz Watts MD Primary Care Provider [phone] Encounter Details Date Type Department Care Team (Late st Contact Info) Description 03/24/2010 Orders [place] [address] Gardenia Marquez MD [facility] [place] [address] Social History Tobacco Use Types Packs/Day Years Used Date Smoking Tobacco: Never Assessed [facility] Inpatient Questions Answer Date Recorded [...] at [facility] [address] [place] [address] Charu Martin MD [facility] [place] [address] 11/16/2024 1:00 PM EST Office [place] [address] Paula Harris PA [facility] [place] [address] 01/26/2025 9:50 AM EDT Appointment Mammography/[place] [address] Joan Deutsch APRN [facility] [address] HDEZ SURGERY [place], [place] [address] 01/26/2025 10:30 AM EDT Office [place] [phone] Joan Deutsch [facility] [place] [address] documented as of this encounter Procedures Procedure Name Priority Date/Time Associated Diagnosis Comments SURGICAL PATHOLOGY REPORT Routine 03/24/2010 2:44 PM EDT documented in this encounter Results * Surgical Pathology Report (03/24/2010 2:44 PM EDT) Surgical Pathology Report 00- [id number] ? Location: 2T; [facility]; A The signing pathologist has (i) examined [...] FISH. ??Direct analysis was performed using the [employer] Kit. ??Slide adequacy and signal enumeration were [...] _ Verified date: ??04/07/10 ??SFA Verified by: ?Belinda STEINER, Devendra Dotson ?(Electronic Signature) ?Pathology Surgical Pathology Final Report Clinical Information kSpecimen Submitted: A - Right [place] node, Right Axilla B - Left Breast [...] 4.0 x 0.8 x 0.8 cm. Sections/Processing: ??Take Up Operator sections are submitted as follows: ?(1) red margin; (2-3) retail service representative section, slice VII, including deep margin [...] of interspersed, castillo- white breast tissue. Sections/Processing: ??Take Up Operator sections are submitted with green ink ?markings in (1-5) and foci of breast tissue and ?adipose in (6-8). ??(R8) ??aje/PPS Microscopic Description Slides reviewed, microscopic description not recorded. Diagnosis Specimen (s): ??A - Right [place] node ? C - Right Partial Mastectomy ? E - Right Breast Cranial Margin ? 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 Tubular Differentiation: ?? [...] nodes: ? 2 ??(Specimen A - Right [place] node) ?? No. positive for carcinoma: ??1 ??(H&E) ?? No. with IHC (+) cells only: 0 ??(cells not seen by H&E, see Note*) ?? No. negative for carcinoma: ??1 ??(both H&E and IHC) ?For positive nodes: ?Largest kristi deposit ?? 0.2 cm ?Extranodal extension ?Absent Estrogen/Progestin receptors: ?? Performed on blocks C2 and C11 ?? ER immunoreactivity: ? Positive (see Diagnostic hanna*) ?? PA immunoreactivity: ? 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 Fibrocystic disease with scar, fibrosis and ?sclerosing adenosis. CR-0 03/29/10 [facility] 03/29/10 Verified by: ? Devendra Trevino MD ?Pathologist ?(Electronic Signature) The attending pathologist whose signature appears on this report has reviewed all diagnostic slides and has edited the gross and/or microscopic portion of the report in rendering the final pathologic diagnosis. [facility] 03/24/2010 2:44 PM EDT Gardenia Marquez MD PATHOLOGY/CYTOLOGY ORDERABLES Performing Organization Address City/State/[facility] Co de Phone Number [facility] documented in this encounter Visit Diagnoses Not on filedocumented in this encounter Care Teams Stacker Tender Relationship Specialty Start Date End Date Mariluz Watts MD [address] [place] [address] PCP - General 08/22/10 documented as of this encounter
--- OUTSIDE RECORDS SUMMARY | 2024-07-02 16:40 | XMS_ITS | Encounter Summary ---
[place] [address] Care Team Providers Care Agency Legal Counsel Name Role Phone Mariluz Watts MD Primary Care Provider [phone] Encounter Details Date Type Department Care Team (Late st Contact Info) Description 03/27/2011 10:49 AM EDT Anesthesia Event [place] [address] Chente Beck MD [facility] [place] [address] Anesthesia Record Procedure Summary Procedure Name Responsible [...] >3 FB Neck ROM: full Dental Comment: [place] dentition Pulmonary - negative ROS breath sounds clear to auscultation (-) asthma Cardiovascular - negative ROS (-) hypertension, past OH and murmur Rhythm: regular Rate: normal Neuro/Psych [...] 8:20 AM EST Office Visit Dermatology at [place] [address] [place] [address] Charu Martin MD [facility] [place] [address] 11/16/2024 1:00 PM EST Office [place] [address] Paula Harris PA [facility] [place] [address] 01/26/2025 9:50 AM EDT Appointment Mammography/[place] [address] Joan Deutsch APRN [facility] [place] [address] 01/26/2025 10:30 AM EDT Office [place] [phone] Joan Deutsch APRN [facility] [place] [address] documented as of this encounter Visit Diagnoses Not on filedocumented in this encounter Care Teams Agency Legal Counsel Relationship Specialty Start Date End Date Mariluz Watts MD [address] [place] [address] PCP - General 08/22/10 documented as of this encounter
--- OUTSIDE RECORDS SUMMARY | 2024-07-02 16:40 | XMS_ITS | Encounter Summary ---
Author Organization [facility] Address [address] [place] [address] Care Team Providers Care Metalsmith Name Role Phone Unavailable Primary Care Provider Unavailabl e Encounter Details Date Type Department Care Team (Latest Contact Info) Description 02/21/2001 13:54 EDT Hospital Encounter [address] [address] Celia Modi, Thea Cosby, HILARIA Discharge Disposition: [...] Procedure Name Priority Date/Time Associated Diagnosis Comments AK MAMMOGRAPHIC SCREEN ANDRES Routine 02/21/2001 15:07 EDT [...] IMAGING EVALUATION END OF IMPRESSION Celia Modi [facility] IM MAMMOGRAPHY ABE CARBALLO documented in this encounter Visit Diagnoses Not on filedocumented in this encounter
--- OUTSIDE RECORDS SUMMARY | 2024-07-02 16:40 | XMS_ITS | Encounter Summary ---
[place] [address] Care Team Providers Care Rn Case Mgr Name Role Phone Mariluz Watts MD Primary Care Provider [phone] Encounter Details Date Type Department Care Team (Latest Contact Info) Description 04/06/2011 1:36 PM EDT - 04/06/2011 11:59 PM EDT Hospital [place] [address] CLINIC, DR KATARINA Merlos, Abrahan Chavarria MD [facility] HEMATOLOGY/[place] [address] Discharge Disposition: Home Social History Tobacco Use [...] Date End Date anastrozole (ARIMIDEX) 1 mg tabletIndications:[place] [address] cancer, stage 2 Take 1 tablet by mouth daily. 90 tablet 3 04/06/2011 08/14/2011 Triamcinolone Acetonide-L.S.B. 0.1 % CreaIndications:Dermat itis Apply 1 applicator topically 2 times daily for 7 days. 1 Tube 0 04/03/2011 04/10/2011 ascorbic acid (VITAMIN C) 500 mg tablet Take 500 mg by mouth daily. 09/04/2011 Mkzenrk-Svnsnepgx-Zbyf 333-133-5 mg Tab Take 3 tablets by [...] 8:20 AM EST Office Visit Dermatology at [address] [phone] Charu Martin MD [facility] DR [address] [place] [address] 11/16/2024 1:00 PM EST Office [place] [phone] Paula Harris PA [facility] [place] [address] 01/26/2025 9:50 AM EDT Appointment Mammography[place] [address] Joan Deutsch APRN [facility] GENERAL SURGERY [place], [place] [address] 01/26/2025 10:30 AM EDT Office [place] [address] Joan Deutsch APRN [facility] [place] [address] documented as of this encounter Procedures Procedure Name Priority Date/Time Associated Diagnosis Comments VITAMIN D, 25-HYDROXY Routine 04/06/2011 1:44 PM EDT HEPATIC FUNCTION PANEL STAT 04/06/2011 1:44 PM EDT documented in this encounter Results * HEPATIC FUNCTION PANEL (04/06/2011 1:44 PM EDT) Pathologist [facility] Protein, Total [...] PM EDT Abrahan Merlos MD CHEMISTRY ORDERABLES [facility] * VITAMIN D2 AND D3 25 HYDROXY (04/06/2011 1:44 PM EDT) Pathologist [facility] 25-Hydroxy D2 <4.0 ng/mL CERNER MILLENNIUM Comment: Test Performed by: [facility] [address], [place] [address] Register In Chancery: Adela Gavin, Ph.D. 25-Hydroxy D3 41 ng/mL CERNER MILLENNIUM Comment: Test Performed by: [place] [address] Register In Chancery: Adela Gavin, Ph.D. Vitamin D Total 25 OH 41 ng/mL [facility] Comment: -- REFERENCE VALUE -- 25-HYDROXY D TOTAL (D2+D3) Optimum levels in the normal population are 25-80 Test Performed by: [place] [address] Register In Chancery: Adela Gavin, Ph.D. Blood specimen (specimen) 04/06/2011 1:44 PM EDT 04/06/2011 3:52 PM EDT Abrahan Merlos MD CHEMISTRY ORDERABLES [facility] documented in this encounter Visit Diagnoses Not on filedocumented in this encounter Care Teams Rn Case Mgr Relationship Specialty Start Date End Date Mariluz Watts MD [address] [place] [address] PCP - General 08/22/10 documented as of this encounter
--- OUTSIDE RECORDS SUMMARY | 2024-07-02 16:40 | XMS_ITS | Encounter Summary ---
Author Organization [facility] Address [address] [place] [address] Care Team Providers Care Necktie Maker Name Role Phone Unavailable Primary Care Provider Unavailabl e Encounter Details Date Type Department Care Team ([facility] st Contact Info) Description 11/25/2006 Results Only [facility] [address] [place] [address] Mariluz Watts MD [address] [place] [address] [address] [place] [address] Social History Tobacco Use Types [...] ? DIAMOND MCFADDEN ? Accession #: ? [id number] : ? 1945 (Age: 60) ??F ?Collect Date: ? 11/25/2006 Location: ? [facility] ? Receive Date: ? 11/27/2006 Provider: ?MARILUZ WATTS MD Copy to: ? Specimen/Source: ?ThinPrep Pap Test, Endocervix, processed on [employer] ThinPrep Imaging System, with manual evaluation Last [...] MD PATHOLOGY ORDERABLE S DHRUV [address] [place] [address] documented in this encounter Visit Diagnoses Not on filedocumented in this encounter
--- OUTSIDE RECORDS SUMMARY | 2024-07-02 16:40 | XMS_ITS | Encounter Summary ---
[place] [address] Care Team Providers Care Rehabilitator Name Role Phone Mariluz Watts MD Primary Care Provider [phone] Encounter Details Date Type Department Care Team (Late st Contact Info) Description 03/27/2011 9:42 AM EDT - 03/27/2011 11:10 AM EDT Surgery [place] [address] Ruben Oconnor MD [address] [place] [id number] EXC BENIGN LESION; INDRA >4.0CM, TRUNK (WRVU [...] Discharge Instructions * Discharge Instructions* Francisco Javier Hernandez, RN - 03/27/2011 1:08 PM EDT POST [...] 1 % gel 10/26/2010 07/25/2012 DARCY SANCHEZ, [facility] 10/26/2010 012 multivitamin (THERAGRAN) tablet 10/26/2010 07/25/2012 [...] Operative Note Patient Name: Diamond Gaming : [id number] MR#: [id number] Case Date: 03/27/2011 Surgeon: Surgeon(s) and Role: [...] 8:20 AM EST Office Visit Dermatology at [address] [address] Charu Martin MD [facility] [place] [address] 11/16/2024 1:00 PM EST Office Visit General [place] [address] Paula Harris PA [facility] [address] 01/26/2025 9:50 AM EDT Appointment Mammography/[place] [address] Joan Deutsch APRN [facility] [place] [address] 01/26/2025 10:30 AM EDT Office Visit General [place] [address] Joan Deutsch APRN [facility] [place] [address] documented as of this encounter Procedures Procedure [...] Procedure), Routine 0845 (Given - Provid er: Mekih Mcneal RN)0915 (Due) Continuous Medication Order 03/25/2011 03/26/2011 03/27/2011 lactated ringers infusion 1,000 mL (CANCELED) 1,000 mL, at 100 mL/hr, Intravenous, CONTINUOUS, Starting on Sat03/27/11 at 0845, Until Sat03/27/11 at 1905, Day of Surgery (Day of Procedure) 0845 (Due)1213 (New Bag - Provider: Francisco Javier Hernandez RN) PRN Medication Order 03/25/2011 03/26/2011 03/27/2011 BUpivacaine-epiNEPHrine 0.25 %-1:200,000 injection (COMPLETED) ONCE PRN, 1 dose, Starting on Sat03/27/11 at 1125, Until Sat03/27/11 at 1125, Intra-Operative (Intra-Procedure), Routine 1125 (Given - Provid er: Stan Hebert) fentaNYL 50mcg/mL injection (CANCELED) 25-50 mcg, Intravenous, EVERY 5 MIN PRN, Starting on e 03/27/11 at 1212, Until 03/27/11 at 1905, Pain, for breakthrough pain, Hold for respiratory rate less than 10 per minute. Maximum dose: 250 mcg over one hour., PACU Recovery, Routine 1230 (Given - Provid er: Francisco Javier Hernandez RN)1250 (Given - Provider: Francisco Javier Hernandez RN) OXYcodone (ROXICODONE) immediate release tablet 5 mg (CANCELED) 5 mg, Oral, EVERY 4 HOURS PRN, Starting on Sat03/27/11 at 1017, Until 03/27/11 at 1905, Pain, [...] Starting on e 03/27/11 at 1212, Until Tu03/27/11 at 1905, Nausea, May repeat 4 mg [...] doses, Starting on 03/27/11 at 1212, Until Sat03/27/11 at 1905, Nausea, Avoid in patients greater than 60 years old., PACU Recovery, Routine documented in this encounter Care Teams Rehabilitator Relationship Specialty Start Date End Date Mariluz Watts MD [address] [place] [address] PCP - General 08/22/10 documented as of this encounter
--- OUTSIDE RECORDS SUMMARY | 2024-07-02 16:40 | XMS_ITS | Encounter Summary ---
[place] [address] Care Team Providers Care Alteration Workroom Supervisor Name Role Phone Mariluz Watts MD Primary Care Provider [phone] Encounter Details Date Type Department Care Team (Late st Contact Info) Description 01/10/2004 [place] [address] Gallito Travis MD [facility] [place] [address] Social History Tobacco Use Types Packs/Day Years [...] EST Office Visit Dermatology at [facility] [address] [place] [address] Charu Martin MD [facility] [place] [address] 11/16/2024 1:00 PM EST Office Visit General Surgery at [place] [phone] Paula Harris PA [facility] [place] [address] 01/26/2025 9:50 AM EDT Appointment Mammography/DXA at [place] [phone] Joan Deutsch APRN [facility] [place] [address] 01/26/2025 10:30 AM EDT Office [place] [address] Joan Deutsch APRN [facility] [place] [address] documented as of this encounter Procedures Procedure Name Priority Date/Time Associated Diagnosis Comments SURGICAL PATHOLOGY REPORT Routine 01/10/2004 9:35 AM EDT documented in this encounter Results * Surgical Pathology Report (01/10/2004 9:35 AM EDT) Surgical Pathology Report - [id number] ? Location: [facility] The signing pathologist has (i) examined the relevant preparation(s) for the specimen(s) and (ii) rendered or confirmed the diagnosis(es). . ?Pathology Surgical Pathology Final Report Clinical Information Specimen Submitted: A - Right breast Clinical History: Oval well defined mass CD: FA vs cyst (FCD) vs ca. Report to: Mariluz Watts MD [facility] [address] [place] [address] Gross Description Labeled/Fixativ e: ? Right breast, [...] diagnosis. Comment Multiple deeper levels are reviewed. [facility] 01/10/2004 9:35 AM EDT Gallito Travis MD PATHOLOGY/CYTOLOGY O RDERABLES Performing Organization Address City/State/[facility] Co wv Phone Number [facility] documented in this encounter Visit Diagnoses Not on filedocumented in this encounter Care Teams Alteration Workroom Supervisor Relationship Specialty Start Date End Date Mariluz Watts MD [address] [place] [address] PCP - General 08/22/10 documented as of this encounter
--- OUTSIDE RECORDS SUMMARY | 2024-07-02 16:40 | XMS_ITS | Encounter Summary ---
Author Organization [facility] [place] [address] Care Team Providers Care Scrap Picker Name Role Phone Mariluz Watts MD Primary Care Provider [phone] Encounter Details Date Type Department Care Team (Late st Contact Info) Description 01/27/2007 Orders [place] [address] Arcenio Carrion MD [facility] [address] Social History Tobacco Use Types Packs/Day Years Used Date Smoking Tobacco: Never Assessed [facility] Inpatient Questions Answer [...] AM EST Office Visit Dermatology at [facility] [address] [place] [address] Charu Martin MD [facility] [place] [address] 11/16/2024 1:00 PM EST Office Visit General Surgery at [place] [phone] Paula Harris PA [facility] [place] [address] 01/26/2025 9:50 AM EDT Appointment Mammography/[place] [address] Joan Deutsch APRN [facility] [place] [address] 01/26/2025 10:30 AM EDT Office Visit General Surgery at [place] [phone] Joan Deutsch [facility] [place] [address] documented as of this encounter Procedures Procedure Name Priority Date/Time Associated Diagnosis Comments SURGICAL PATHOLOGY REPORT Routine 01/27/2007 5:27 PM EDT documented in this encounter Results * Surgical Pathology Report (01/27/2007 5:27 PM EDT) Surgical Pathology Report ? Location: The signing pathologist has (i) [...] rendering the final pathologic diagnosis. [facility] 01/27/2007 5:27 PM EDT Arcenio Carrion MD PATHOLOGY/CYTOLOGY O RDERABLES [facility] documented in this encounter Visit Diagnoses Not on filedocumented in this encounter Care Teams Scrap Picker Relationship Specialty Start Date End Date Mariluz Watts MD [address] [place] [address] PCP - General 08/22/10 documented as of this encounter
--- OUTSIDE RECORDS SUMMARY | 2024-07-02 16:40 | XMS_ITS | Encounter Summary ---
Author Organization [facility] Address [address] [place] [address] Care Team Providers Care Heavy Machinery Assembler Name Role Phone Mariluz Watts MD Primary Care Provider [phone] Encounter Details Date Type Department Care Team ([facility] st Contact Info) Description 05/15/2021 Lab Requisition [facility] Pathology & Laboratory Medicine - [address] [address] Outr Resulting Lab, Provider Social History Tobacco [...] Neg and Giardia Antigen Neg 10:12 EDT [facility] Feces SPECIMEN FROM RECTUM / Unknown 05/14/2021 18:00 EDT 05/15/2021 16:39 EDT Provider Outr Resulting Lab MICROBIOLOGY - GENERAL ORDERABLES [facility] [address] [place] [address] documented in this encounter Visit Diagnoses Not on filedocumented in this encounter Care Teams Heavy Machinery Assembler Relationship Specialty Start Date End Date Mariluz Watts MD [address] [place] [address] PCP - General Family Medicine - Primary Care 12/26/22 documented as of this encounter
--- OUTSIDE RECORDS SUMMARY | 2024-07-02 16:40 | XMS_ITS | Encounter Summary ---
Author Organization [facility] Address [address] [place] [address] Care Team Providers Care Supervisor Orchard Name Role Phone Mariluz Watts MD Primary Care Provider [phone] Encounter Details Date Type Department Care Team ([facility] st Contact Info) Description 11/01/2020 Lab Requisition [facility] Pathology & Laboratory Medicine - [address] [address] Outr Resulting Lab, Provider Social History Tobacco [...] GENERAL ORDERABLES [facility]ORY [facility] [address] [place] [address] * COVID-19 TESTING (11/01/2020 8:30 EST) COVID-19 rt-PCR Result Negative Negative 11/02/2020 12:29 EST [facility] Comment: This test was developed and its performance characteristics determined by [facility]. It has not been cleared or [...] based on the [facility] COVID-19 Emergency Use Authorization (EUA) assay, with minor modification as defined by the FDA Performed on the tagUin Pro RT-PCR System. Negative results do not preclude 2019-nCoV infection and should not be used as the sole basis for treatment or other patient management decisions. Negative results must be combined with clinical observations, patient history, and epidemiological information. Performing Lab [facility] Lab 11/02/2020 12:29 EST [facility]ORY [facility] Swab 11/01/2020 8:30 EST 11/01/2020 16:03 EST Provider Outr Resulting Lab MICROBIOLOGY - GENERAL ORDERABLES [facility] [address] [place] [address] documented in this encounter Visit Diagnoses Not on filedocumented in this encounter Care Teams Supervisor Orchard Relationship Specialty Start Date End Date Mariluz Watts MD [address] [place] [address] PCP - General Family Medicine - Primary Care 12/26/22 documented as of this encounter
--- OUTSIDE RECORDS SUMMARY | 2024-07-02 16:40 | XMS_ITS | Encounter Summary ---
Author Organization [facility] [place] [address] Care Team Providers Care Electric Bath Attendant Name Role Phone Mariluz Watts MD Primary Care Provider [phone] Encounter Details Date Type Department Care Team (Late st Contact Info) Description 10/19/2010 3:45 PM EST [place] [address] Ruben Oconnor MD [address] [place] [address] Discharge Disposition: Home Social History Tobacco Use [...] [facility] [address] [place] [address] Charu Martin MD [facility] [place] [address] 11/16/2024 1:00 PM EST Office Visit General Surgery at [place] [address] Paula Harris PA [facility] [place] [address] 01/26/2025 9:50 AM EDT Appointment Mammography/DXA at [place] [phone] Joan Deutsch, GE [facility] [place] [address] 01/26/2025 10:30 AM EDT Office Visit General Surgery at [place] [phone] Joan Deutsch, NATURAL GAS ENGINEER [facility] [place] [address] documented as of this encounter Visit Diagnoses Not on filedocumented in this encounter Care Teams Electric Bath Attendant Relationship Specialty Start Date End Date Mariluz Watts MD [address] [place] [address] PCP - General 08/22/10 documented as of this encounter
[2024-07-02 17:04] LABS: Bilirubin Negative (Negative); Blood Negative (Negative); Clarity Clear (Clear); Glucose Negative (Negative); Ketones Negative (Negative); Leukocyte Esterase Negative (Negative); Nitrite Negative (Negative); Urobilinogen 0.2 mg/dL (Up to 0.2)
== END 2024-07-02 16:30 | disposition home or self-care (01) ==
LOC: LBN 16:29
PROVIDERS: PCP Family Medicine; Visit Provider Family Medicine
DX: N39.0 Urinary tract infection, site not specified (principal); D64.9 Anemia, unspecified
CPT/HCPCS: 81003

== ENCOUNTER 2024-08-11 17:06 | Outpatient (REF) | payer MEDICARE, SELFPAY ==
[2024-08-11 14:06] LABS: Bilirubin Negative (Negative); Blood Negative (Negative); Clarity Cloudy (Clear); Glucose Negative (Negative); Ketones Negative (Negative); Leukocyte Esterase Negative (Negative); Nitrite Positive (Negative); Specific Gravity 1.025 (1.005-1.025); Urobilinogen 0.2 mg/dL (Up to 0.2); pH 5.5 (5-8)
[2024-08-11 14:07] LABS: Bacteria Packed HPF (Negative); Crystals Many Amorphous HPF (Negative); Epithelial Cells Negative HPF (Negative); RBC Negative HPF (0-2); WBC 20-50 HPF (0-5)
[2024-08-11 14:08] LABS: C & S Indicated? Yes; Casts Negative LPF (Negative); Mucus Negative (Negative)
--- OUTSIDE RECORDS SUMMARY | 2024-08-11 17:08 | XMS_ITS | Encounter Summary ---
[place] [address] Care Team Providers Care Labor Delivery Rn Name Role Phone Mariluz Watts MD Primary Care Provider [phone] Encounter Details Date Type Department Care Team [...] PM EST Office Visit [place] [address] Paula Harris PA [facility] [place] [address] 01/26/2025 9:50 AM EDT Appointment Mammography/DXA at [place] [phone] Joan Deutsch, BUSINESS LIAISON MANAGER [facility] [place] [address] 01/26/2025 10:30 AM EDT Office Visit General Surgery at [place] [phone] Joan Deutsch, [facility] [place] [address] documented as of this encounter Visit Diagnoses Not on filedocumented in this encounter Care Teams Labor Delivery Rn Relationship Specialty Start Date End Date Mariluz Watts MD [address] [place] [address] PCP - General 08/22/10 documented as of this encounter
--- OUTSIDE RECORDS SUMMARY | 2024-08-11 17:08 | XMS_ITS | Encounter Summary ---
[place] [address] Care Team Providers Care Wiener Packer Name Role Phone Mariluz Watts MD Primary Care Provider [phone] Encounter Details Date Type Department Care Team [...] PM EST Office Visit General [place] [address] Paula Harris PA [facility] [place] [address] 01/26/2025 9:50 AM EDT Appointment Mammography/DXA at [place] [phone] Joan Deutsch, REGIONAL CLINICAL RESEARCH ASSOCIATE [facility] [place] [address] 01/26/2025 10:30 AM EDT Office Visit General Surgery at [place] [phone] Joan Deutsch, [facility] [place] [address] documented as of this encounter Visit Diagnoses Not on filedocumented in this encounter Care Teams Wiener Packer Relationship Specialty Start Date End Date Mariluz Watts MD [address] [place] [address] PCP - General 08/22/10 documented as of this encounter
--- OUTSIDE RECORDS SUMMARY | 2024-08-11 17:08 | XMS_ITS | Encounter Summary ---
Author Organization [facility]ly [facility] [place] [address] Care Team Providers Care Program Research Specialist Name Role Phone Mariluz Watts MD Primary Care Provider [phone] Reason for Visit * Reason Comments Rosacea Encounter Details Date Type Department Care Team (Late st Contact Info) Description 04/23/2024 4:20 PM EDT Office Visit Dermatology at [facility] [address] [place] [address] Cornell Hernández MD [facility] [place] [address] Rosacea Social History Tobacco Use Types Packs/Day Years Used Date Smoking Tobacco: Former Cigarettes 1 3 0 09/30/1965 - 09/30/1968 Smokeless Tobacco: Never Alcohol Use Standard Drinks/Week Comments No 0 (1 standard drink = 0.6 oz pur e alcohol) [facility] Inpatient Questions Answer Date Recorded [...] OF DERMATOLOGY Medical Dermatology Clinic Provider: Cornell Hernándze MD Patient's preferred name Diamond Preferred contact [...] cream - apply toface BID - Email: [email or web address] - Phone number: [phone] - Discussed redness is best treated with [...] RTC: Yearly for refills []Note routed to unit secretary []Recall placed in scheduling system []Appointment scheduled at checkout Scribe attestation: Thu Franco [facility] has performed the documentation for this encounter inthe presence of and acting as a scribe for Cornell Hernández MD. I performed the above scribed service and agree with the accuracy of the documentation in this encounter. Reviewed and signed by: Cornell Hernández MD Dermatology [facility] Staff office nurse practitioner: José Manuel Kelly MD Dermatology [facility] * José Manuel Kelly MD - 04/23/2024 4:20 PM EDT I was the supervising physician working with the Dermatology resident, Cornell Hernández MD, in the care of this Dermatology patient in person. For the purposes of billing, the resident provided the care. I have reviewed the encounter note details and level of service. JOSÉ MANUEL KELLY MD Staff Connie Scratcher Department of Dermatology [facility] documented in this encounter Plan of Treatment Upcoming Encounters Date Type Department Care Team (Late st Contact Info) Description 11/16/2024 1:00 PM EST Office Visit General Surgery at [place] [address] Paula Harris PA [facility] [place] [address] 01/26/2025 9:50 AM EDT Appointment Mammography/[place] [address] Joan Deutsch, [facility] [place] [address] 01/26/2025 10:30 AM EDT Office Visit General Surgery at [place] [phone] Joan Deutsch, [facility] [place] [address] documented as of this encounter Visit Diagnoses Diagnosis Rosacea documented in this encounter Care Teams Program Research Specialist Relationship Specialty Start Date End Date Mariluz Watts MD [address] [place] [address] PCP - General 08/22/10 documented as of this encounter
--- OUTSIDE RECORDS SUMMARY | 2024-08-11 17:08 | XMS_ITS | Encounter Summary ---
[place] [address] Care Team Providers Care Golf Course Keeper Name Role Phone Mariluz Watts MD Primary Care Provider [phone] Encounter Details Date Type Department Care Team [...] PM EST Office Visit [place] [address] Paula Harris PA [facility] [place] [address] 01/26/2025 9:50 AM EDT Appointment Mammography/DXA at [place] [phone] Joan Deutsch, BLENDING TANK TENDER [facility] [place] [address] 01/26/2025 10:30 AM EDT Office Visit General Surgery at [place] [phone] Joan Deutsch, [facility] [place] [address] documented as of this encounter Visit Diagnoses Not on filedocumented in this encounter Care Teams Golf Course Keeper Relationship Specialty Start Date End Date Mariluz Watts MD [address] [place] [address] PCP - General 08/22/10 documented as of this encounter
--- OUTSIDE RECORDS SUMMARY | 2024-08-11 17:08 | XMS_ITS | Encounter Summary ---
Author Organization Formerly [facility] [place] [address] Care Team Providers Care Tar Boiler Name Role Phone Mariluz Watts MD Primary Care Provider [phone] Encounter Details Date Type Department Care Team (Late st Contact Info) Description 07/11/2023 Orders Only Dermatology at [facility] [address] [place] [address] Cornell Hernández MD [facility] [place] [address] Rosacea Social History Tobacco Use Types Packs/Day [...] PM EST Office Visit [place] [address] Paula Harris PA [facility] [place] [address] 01/26/2025 9:50 AM EDT Appointment Mammography/[place] [address]-1000 Joan Deutsch, [facility] [place] [address] 01/26/2025 10:30 AM EDT Office Visit [place] [address] Joan Deutsch, [facility] [place] [address] documented as of this encounter Visit Diagnoses Diagnosis Rosacea documented in this encounter Care Teams Tar Boiler Relationship Specialty Start Date End Date Mariluz Watts MD [address] [place] [address] PCP - General 08/22/10 documented as of this encounter
--- OUTSIDE RECORDS SUMMARY | 2024-08-11 17:08 | XMS_ITS | Clinical Summary ---
Author Organization [facility] [place] [address] Care Team Providers Care Campus Police Officer Name Role Phone Mariluz Watts MD Primary Care Provider [phone] Allergies Active Allergy Reactions Criticality Noted Date [...] into skin and subcutaneous tissues (CPT code 16088) left total hip arthroplasty, anterior Hueter approach with Clovis table (CPT code 74709) Left hip intraoperative radiologic examination (CPT code 88376) Amicar infusion (5 g IV load, then 1g/hr x 3 hrs) Components Used: Nicole Accolade stem, size 4, 127 degrees Trident PSLcup, 52 mm, solid 32 mm ID, alumina 32-4 mm alumina head Hip pain 01/25/2012 S/P Right ARSLAN 03/06/2005 (Arcadio) 01/25/2012 Overview (01/28/2012): SURGERY DATE: 03/06/2005 ARCADIO STEINER, NICK Angel Surgical Procedure Performed: Right total hip arthroplasty, cementless, [id number] Components Used: [place]ock Trident 52 shell outer diameter Femoral head [...] Encounters Date Type Department Care Team Description 08/05/2024 8:20 AM EST Office Visit Dermatology at [facility] [address] [place] [address] Charu Martin MD Telogen effluvium 08/05/2024 Travel 06/24/2024 Telephone Dermatology at [facility] [address] [place] [address] Cornell Hernández MD 05/18/2024 2:00 PM EDT Office [place] [address] Aria Higuera MD AIN III (anal intraepithelial neoplasia III) 05/17/2024 Travel from Last 3 Months Immunizations Name Administration Dates Next Due DTaP 01/31/2006 Hepatitis C Vaccine 11/28/2018 Influenza (Fluzone HD) Trivalent High Dose 06/30,07/13/2015,07/31/2006 Influenza Trivalent w/Preservative 06/12/2013,,08/03/2008 Influenza Vaccine, Whole 07/11/2010,08/03/2008,1 09/30/2005 Pneumococcal 23-Valent Polys accharide (Pneumovax 23) 11/28/2022,01/14/2014,05/31/2008 Tdap (Adacel, Boostrix) 01/31/2006 Tetanus Toxoid, Unspecified Formulation 09/30/19 17 Zoster LIVE (Zostavax) 07/31/2008 Zoster, Unspecified Formulation 09/30/2021,08/30 Family History Medical History Relation Comments Strabismus [...] 0.6 oz pur e alcohol) [facility] Inpatient Questions Answer Date Recorded Does Anyone [...] PM EST Office [place] [phone] Paula Harris PA [facility] [place] [address] 01/26/2025 9:50 AM EDT Appointment Mammography/[place] [address] Joan Deutsch APRN [facility] [place] [address] 01/26/2025 10:30 AM EDT Office [place] [address] Joan Deutsch APRN [facility] [place] [address] Health Maintenance Due Date Last Done Comments CT Colonography 1945 FIT DNA 1945 FIT 1945 Sigmoidoscopy 1945 Tetanus/Diphtheria/Pertussis Vaccines (3 - Td or Tdap) 02/01/2016 01/31/2006, 01/31/2006 Zoster vaccine (2 of 3) 11/25/2021 09/30/19, 08/30/2021, 07/31/2008 Pneumoccocal Vaccine: 65+ (2 of 2 - PCV) 11/29/2023 11/28/2022, 01/14/2014, 05/31/2008 Covid-19 Vaccine (5 - 2023-2 5 season) 2024 02/05/2023, 07/26/2022, 12/23/2020, Additional history exists Influenza (Flu) vaccine (1 o f 1 - Influenza standard series) 05/31/2024 06/30/2022, 07/13/2015, 06/12/2013, Additional history exists Colonoscopy 09/07/2025 09/07/2022, 1205/2022, 03/26/2017, Additional history exists Colorectal Cancer Screening 09/07/2025 Sigmoidoscopy (10 year) with FIT yearly 09/07/2032 09/07/2022, 09/07/2022, 03/26/2017, Additional history exists Bone Density Scan 12/26/2036 12/26/2021, , 12/11/2016, Additional history exists Hepatitis C Screening Completed 11/28/2018 Breast Cancer screening Discontinued 01/21/20 24, 01/15/2023, 12/26/2021, Additional history exists Medical Devices Implanted Type Area Farm Management Teacher Device Identifier Shelf Expiration Date Model / Serial / Lot Shell,Acetabu lar,Trident,P sl,S ([id number]) (Autoreq) - [id number] Implanted:Qty : 1 on 07/22/[address] [facility] IMPLANTS DO NOT USE SellAnyCar.ru - [id number] [id number] E / / [id number] Insert,Triden t,Alumina,0,D eg,3 (5395470) (Autoreq) - [id number] Implanted:Qty : 1 on 07/22/[address] [facility] IMPLANTS DO NOT USE [employer] - 6109 625-0T-32 E / / [id number] Stem,Fem,Acco lade,127,Deg, Neck ([id number]) (Autoreq) - [id number] Implanted:Qty : 1 on 07/22/[address] [facility] IMPLANTS DO NOT USE [employer] - 6109 [id number] / / [id number] Cable,Ss,Crmp ,1.6k226iz,St r ([id number]) - [id number] Implanted:Qty : 1 on 07/22/[address] [facility] IMPLANTS DO NOT USE SYNTHES - [id number] 02/27/2017 298.801.0 1S / / [id number] Head,Fem,Alum jose,V40,-4x32 mm (4172977) (Autoreq) - [id number] Implanted:Qty : 1 on 07/22/[address] [facility] IMPLANTS DO NOT USE [employer] - 6109 09/29/2015 6565-0-03 2 / / [id number] Stent,Contour [id number] ([id number]) - [id number] Implanted:Qty : 1 on 07/27/2015 by Rohan James MD at [facility] IMPLANTS Left: Ureter DO NOT USE [employer] - [id number] 03/20/2018 180-222 / / Explanted Type Area Farm Management Teacher Device Identifier Shelf Expiration Date Model / Serial / Lot Stent,Contour- Vl,[id number] ([id number]) - [id number] Implanted:Qty: 1 on 07/11/2015 by Jose D Chauhan III, MD at [facility] Explanted:Qty: 1 on 07/27/2015 by Rohan James MD at [facility] IMPLANTS DO NOT USE [employer] - [id number] 12/28/2017 180-156 / / [id number] Procedures Procedure Name Priority Date/Time Associated Diagnosis [...] Bilateral (01/21/2024 10:07 AM EDT) WORKSTATION ID Vimagino 2 DH RAD Anatomical Region Laterality Modality [...] who have questions please contact the health special needs caregiver that requested your imaging first. ? [...] right and left breast. Stable appearance. Joan Yoon Luisfabio LIQUID SUGAR MELTER IMG MAMMO ORDERABLE S * COLONOSCOPY (09/07/2022 7:41 AM EST) COLONOSCOPY [facility] Endoscopy Procedure Date: 09/07/2022 7:41 AM ? Patient Name: Diamond Gaming ? Date of : 1945 ? Age: 76 ? Order #: [id number] ? Instrument Name: [id number] ? Procedure: ? Colonoscopy Indications: ? High risk colon cancer ? surveillance: Personal history of ? colonic polyps Patient Profile: ? This is a 76 year old female. Refer ? to note in patient chart for ? documentation of history and ? physical. Last Colonoscopy: 2017. Providers: ? Mayur Banuelos MD, Navi Lord. ? [place] Martinez, Beckie Lee Referring MD: [...] preparation was evaluated ? using the BBPS (Meally Bowel ? Preparation Scale) with scores of: [...] were successfully placed (MR ? conditional). Clip organ teacher: Steris 11 and 16mm. ? There was [...] BMD measurements and plots are available in ESportCentral under the imaging tab. Paper copies will be sent to providers without E- access. If you have received this report without the data sheet and do not have access to EIntegriChain, please contact Radiology [facility] at [phone] Saturday thru Saturday 8am-4pm. Thank you for letting us participate in the care of this patient. ??If you are a health care provider and have any questions regarding this report, please contact the number below. ??For patients who have questions please contact the health special needs caregiver that requested your imaging first. ? Electronically signed by: Juan Antonio Ibarra MD, [facility] ([phone]), at 12/26/2021 12:42 PM Narrative 12/26/2021 12:42 [...] previous, 0.086 ??g/cm2 (9.9 %) increase. At [facility], least significant change for bone mineral density [...] the diagnostic region of interest: T-score: -2.7, ROMNÁ: One third distal radius, WHO diagnosis:osteoporosis. ......... Comparison......... Previous scan:November 2019 Total spine: Compared to the previous, 0.086 g/cm2 (9.9 %) increase. At [facility], least significant change for bonemineral density measurements [...] BMD measurements and plots are available in EIntegriChainunder the imaging tab. Paper copies will be sent to providers without [employer] access.If you have received this report without the data sheet and do not haveaccess to [employer] [facility], please contact Radiology Record Searcher at [phone] Saturday thruFriday 8am-4pm. Thank you for letting us participate in the care of this patient. If youare a health care provider and have any questions regarding this report,please contact the number below. For patients who have questions please contactthe health special needs caregiver that requested your imaging first. Abrahan Merlos MD IMG DEXA ORDERABLES * Hepatitis C Antibody (11/28/2018 10:20 AM EST) Hepatitis C Antibody Negative Negative [facility] Blood specimen (specimen) Venous Draw / Unknown 11/28/2018 10:20 AM EST 11/28/2018 10:51 AM EST Narrative Resulting Agency Comment Spec In Lab Mariluz Watts MD CHEMISTRY ORDERABLES [facility] [place] [address] from Last 3 Months or Most Recently Relevant to Health Maintenance Advance Directives Documents on File Type Date Recorded Patient Warehouse Representative Expl anation POLST/COLST (Order for Life Sustaining Treatment) 11/26/2019 1:52 PM Advance Directives and Living Will 10/28/2019 9:53 AM signed on 10/21/2019 Personal Warehouse Representative 12/12/2022 9:20 AM PERSONAL REP FORM FOR [...] Health Care Agent Willy Gaming Child [facility] Health Care Agent [email or web address] Care Teams Campus Police Officer Relationship Specialty Start Date End Date Mariluz Watts MD [address] [place] [address] [address] [facility] [address] [place] [address] PCP - General 08/22/10
--- OUTSIDE RECORDS SUMMARY | 2024-08-11 17:08 | XMS_ITS | Encounter Summary ---
[place] [address] Care Team Providers Care Pharmacist Technician Name Role Phone Mariluz Watts MD Primary Care Provider [phone] Encounter Details Date Type Department Care Team [...] PM EST Office Visit [place] [address] Paula Harris PA [facility] [place] [address] 01/26/2025 9:50 AM EDT Appointment Mammography/DXA at [place] [phone] Joan Deutsch, [employer] [facility] [place] [address] 01/26/2025 10:30 AM EDT Office Visit General Surgery at [place] [phone] Joan Deutsch, [facility] [place] [address] documented as of this encounter Visit Diagnoses Not on filedocumented in this encounter Care Teams Pharmacist Technician Relationship Specialty Start Date End Date Mariluz Watts MD [address] [place] [address] PCP - General 08/22/10 documented as of this encounter
--- OUTSIDE RECORDS SUMMARY | 2024-08-11 17:08 | XMS_ITS | Encounter Summary ---
Author Organization [facility] [place] [address] Care Team Providers Care Kitchen Supervisor Name Role Phone Mariluz Watts MD Primary Care Provider [phone] Encounter Details Date Type Department Care Team (Latest Contact Info) Description 05/18/2024 2:00 PM EDT Office [place] [address] Aria Higuera MD [facility] [place] [address] AIN III (anal intraepithelial neoplasia III) Social [...] Division of Colon and Rectal Surgery ~ [facility] PCP:Mariluz Watts MD HPI: Diamond Gaming 78 [...] GI bleeding 03/25/2011 Hypermobility syndrome Kidney disease 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 current use of opiate analgesic Motion sickness [...] of Colon and Rectal Surgery [facility] Pager [phone] 05/18/2024 1:53 PM documented in this encounter Plan of Treatment Upcoming Encounters Date Type Department Care Team (Late st Contact Info) Description 11/16/2024 1:00 PM EST Office Visit General Surgery at [place] [phone] Paula Harris PA [facility] [place] [address] 01/26/2025 9:50 AM EDT Appointment Mammography/DXA at [place] [phone] Joan Deutsch [facility] [address] 01/26/2025 10:30 AM EDT Office Visit General Surgery at [place] [phone] Joan Deutsch [facility] [place] [address] documented as of this encounter Visit Diagnoses Diagnosis 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
--- OUTSIDE RECORDS SUMMARY | 2024-08-11 17:08 | XMS_ITS | Continuity of Care Document ---
Author Organization [facility] Address [address] [place] [address] [id number] Date(s): 05/12/24 - 05/12/24 [facility] [address] [place], [place] [address]
--- OUTSIDE RECORDS SUMMARY | 2024-08-11 17:08 | XMS_ITS | Encounter Summary ---
Author Organization [facility]ly [facility] Address [facility] [place] [address] Care Team Providers Care Fitting Room Checker Name Role Phone Mariluz Watts MD Primary Care Provider [phone] Encounter Details Date Type Department Care Team (Late st Contact Info) Description 07/31/2023 Telephone Dermatology at [facility] [address] [place] [address] Cornell Hernández MD [facility] [place] [address] Social History Tobacco Use Types Packs/Day Years [...] PM EST Office [place] [address] Paula Harris PA [facility] [place] [address] 01/26/2025 9:50 AM EDT Appointment Mammography/DXA at [place] [phone] Joan Deutsch APRN [facility] [place] [address] 01/26/2025 10:30 AM EDT Office [place] [address] Joan Deutsch APRN [facility] [place] [address] documented as of this encounter Visit Diagnoses Not on filedocumented in this encounter Care Teams Fitting Room Checker Relationship Specialty Start Date End Date Dobbertin, Mariluz, MD [address] [place] [address] PCP - General 08/22/10 documented as of this encounter
--- OUTSIDE RECORDS SUMMARY | 2024-08-11 17:08 | XMS_ITS | Encounter Summary ---
Author Organization [facility] Address [facility] [place] [address] Care Team Providers Care Capacity Manager Name Role Phone Mariluz Watts MD Primary Care Provider [phone] Encounter Details Date Type Department Care Team (Late st Contact Info) Description 10/04/2023 10:40 AM EST Office Visit Dermatology at [facility] [address] [place] [address] Mirta Loaiza MD [facility] [place] [address] Milia; Telangiectasias; Rosacea Social History Tobacco Use Types Packs/Day Years Used Date Smoking Tobacco: Former Cigarettes 1 3 0 09/30/1965 - 09/30/1968 Smokeless Tobacco: Never Alcohol Use Standard Drinks/Week Comments No 0 (1 standard drink = 0.6 oz pur e alcohol) [facility] Inpatient Questions Answer Date Recorded Does [...] - apply to face BID - Email: .Scandlines - Phone number: [phone] - Discussed redness is best treated with [...] 6 months for rosacea []Note routed to traveling secretary [x]Recall placed in scheduling system []Appointment scheduled at checkout Scribe attestation: [facility] Sinha [facility] has performed the documentation for this encounter in the presence of and acting as a scribe for Mirta Loaiza MD. I performed the above scribed service and agree with the accuracy of the documentation in this encounter. Reviewed and signed by: Mirta Loaiza MD Dermatology [facility] Patient seen and evaluated with staff railroad switchman: Cande Foster MD Dermatology [facility] * Cande Foster MD - [...] them as documented. Cande Foster MD Staff Childhood Development Teacher Department of Dermatology [facility] documented in this encounter Plan of Treatment Upcoming Encounters Date Type Department Care Team (Late st Contact Info) Description 11/16/2024 1:00 PM EST Office Visit General Surgery at [place] [phone] Paula Harris PA [facility] [place] [address] 01/26/2025 9:50 AM EDT Appointment Mammography/DXA at [place] [phone] Joan Deutsch APRN [facility] [place] [address] 01/26/2025 10:30 AM EDT Office [place] [phone] Joan Deutsch APRN [facility] [place] [address] documented as of this encounter Visit Diagnoses Diagnosis Milia Sebaceous cyst Telangiectasias Other and unspecified capillary diseases Rosacea documented in this encounter Care Teams Capacity Manager Relationship Specialty Start Date End Date Mariluz Watts MD [address] [place] [address] PCP - General 08/22/10 documented as of this encounter
--- OUTSIDE RECORDS SUMMARY | 2024-08-11 17:08 | XMS_ITS | Encounter Summary ---
Author Organization [facility] [place] [address] Care Team Providers Care Thermal Cutter Helper Name Role Phone Mariluz Watts MD Primary Care Provider [phone] Encounter Details Date Type Department Care Team (Latest Contact Info) Description 01/21/2024 9:38 AM EDT - 01/21/2024 11:59 PM EDT Hospital Encounter Mammography[place] [address] Joan Deutsch, GE [facility] [address] Encounter for screening mammogram for breast cancer Discharge Disposition: Home Social History Tobacco Use Types Packs/Day Years Used Date Smoking Tobacco: Former Cigarettes 1 3 0 09/30/1965 - 09/30/1968 Smokeless Tobacco: Never Alcohol Use Standard Drinks/Week Comments No 0 (1 standard drink = 0.6 oz pur e alcohol) [facility] Inpatient Questions Answer Date Recorded Does [...] PM EST Office [place] [address] Paula Harris PA [facility] [place] [address] 01/26/2025 9:50 AM EDT Appointment Mammography/[place] [address] Joan Deutsch MAITRE D [facility] [place] [address] 01/26/2025 10:30 AM EDT Office [place] [phone] Joan Deutsch, MAITRE D [facility] [place] [address] documented as of this encounter Procedures Procedure Name Priority Date/Time Associated Diagnosis Comments MAMMO SCREENING CAD AND CINDY BILATERAL Routine 01/21/2024 10:07 AM EDT Encounter for screening mammogram for breast cancer documented in this encounter Results * Mammo Screening Cad and Cindy Bilateral (01/21/2024 10:07 AM EDT) [employer] WORKSTATION ID [employer][id number] DH RAD Anatomical Region Laterality Modality [...] who have questions please contact the health neurocritical care physician that requested your imaging first. ? Narrative [...] and left breast. Stable appearance. Joan Deutsch MAITRE D IMG MAMMO ORDERABLE S documented in this encounter Visit Diagnoses Diagnosis Encounter for screening mammogram for breast cancer documented in this encounter Care Teams Thermal Cutter Helper Relationship Specialty Start Date End Date Mariluz Watts MD [address] [place] [address] PCP - General 08/22/10 documented as of this encounter
--- OUTSIDE RECORDS SUMMARY | 2024-08-11 17:08 | XMS_ITS | Encounter Summary ---
Author Organization [facility] [place] [address] Care Team Providers Care Optical Goods Worker Name Role Phone Mariluz Watts MD Primary Care Provider [phone] Reason for Visit * Reason Comments Skin Lesion Encounter Details Date Type Department Care Team (Late st Contact Info) Description 01/21/2024 8:40 AM EDT Office Visit Dermatology at [facility] [address] [place] [address] Meagan Franks MD [facility] [place] [address] Telangiectasia Social History Tobacco Use Types Packs/Day [...] for follow up nose [x]Note routed to secretary bookkeeper []Recall placed in scheduling system []Appointment scheduled at checkout Scribe attestation: JOSEFINA RUIZ LPN has performed the documentation for this encounter in the presence of and acting as a scribe for MEAGAN FRANKS MD. I performed the above scribed service and agree with the accuracy of the documentation in this encounter. Reviewed and signed by: MEAGAN FRANKS MD Dermatology [facility] documented in this encounter Plan of Treatment Upcoming Encounters Date Type Department Care Team (Late st Contact Info) Description 11/16/2024 1:00 PM EST Office [place] [address] Paula Harris PA [facility] [place] [address] 01/26/2025 9:50 AM EDT Appointment Mammography/[place] [address] Joan Deutsch [facility] [place] [address] 01/26/2025 10:30 AM EDT Office Visit General Surgery at [place] [phone] Joan Deutsch [facility] [place] [address] documented as of this encounter Visit Diagnoses Diagnosis Telangiectasia Other and unspecified capillary diseases documented in this encounter Care Teams Optical Goods Worker Relationship Specialty Start Date End Date Mariluz Watts MD [address] [place] [address] [address] [facility] [address] [place] [address] PCP - General 08/22/10 documented as of this encounter
--- OUTSIDE RECORDS SUMMARY | 2024-08-11 17:08 | XMS_ITS | Encounter Summary ---
[place] [address] Care Team Providers Care Business Manager College Or University Name Role Phone Mariluz Watts MD Primary Care Provider [phone] Encounter Details Date Type Department Care Team (Latest Contact Info) Description 08/05/2024 Travel Social History Tobacco Use Types Packs/Day [...] PM EST Office [place] [address] Paula Harris PA [facility] [place] [address] 01/26/2025 9:50 AM EDT Appointment Mammography/DXA at [place] [phone] Joan Deutsch, HUNTER TRAPPER [facility] [place] [address] 01/26/2025 10:30 AM EDT Office Visit General Surgery at [place] [phone] Joan Deutsch, [facility] [place] [address] documented as of this encounter Visit Diagnoses Not on filedocumented in this encounter Care Teams Business Manager College Or University Relationship Specialty Start Date End Date Mariluz Watts MD [address] [place] [address] PCP - General 08/22/10 documented as of this encounter
--- OUTSIDE RECORDS SUMMARY | 2024-08-11 17:08 | XMS_ITS | Encounter Summary ---
[place] [address] Care Team Providers Care Harbor Master Name Role Phone Mariluz Watts MD Primary Care Provider [phone] Encounter Details Date Type Department Care Team [...] PM EST Office [place] [address] Paula Harris PA [facility] [place] [address] 01/26/2025 9:50 AM EDT Appointment Mammography/DXA at [place] [phone] Joan Deutsch, [employer] [facility] [place] [place] [address] 01/26/2025 10:30 AM EDT Office Visit General Surgery at [place] [phone] Joan Deutsch, [facility] [place] [address] documented as of this encounter Visit Diagnoses Not on filedocumented in this encounter Care Teams Harbor Master Relationship Specialty Start Date End Date Mariluz Watts MD [address] [place] [address] PCP - General 08/22/10 documented as of this encounter
--- OUTSIDE RECORDS SUMMARY | 2024-08-11 17:08 | XMS_ITS | Encounter Summary ---
Author Organization [facility] [place] [address] Care Team Providers Care Engineer Exhauster Name Role Phone Mariluz Watts MD Primary Care Provider [phone] Reason for Visit * Reason Onset Date Comments Prior Authorization 07/31/2023 Ivermectin Encounter Details Date Type Department Care Team (Late st Contact Info) Description 07/31/2023 Telephone Dermatology at [facility] [address] [place] [address] Selam Lao, [facility] Prior Authorization (Ivermectin) Social History Tobacco [...] Date: 07/01/2023 End Date: 07/30/2024 Case/Reference #: [id number] Approval Letter will be scanned into media once received. * Telephone Encounter - Selam Lao CMA - 07/31/2023 12:40 PM EDT PA Submitted Submitted Date: Submitted Date: 07/31/2023 Medication Prior Authorization Patient: [employer] Patient : 1945 Insurance Company: [employer] Sent via: Tipstar Bajwa: [id number] Physician: Cornell Hernández MD Medication Requested: ivermectin [...] PM EST Office [place] [address] Paula Harris, PA [facility] [place] [address] 01/26/2025 9:50 AM EDT Appointment Mammography/DXA at [place] [phone] Joan Deutsch, [facility] [place] [address] 01/26/2025 10:30 AM EDT Office [place] [phone] Joan Deutsch, MARKING ROOM SUPERVISOR [facility] [place] [place] [address] documented as of this encounter Visit Diagnoses Not on filedocumented in this encounter Care Teams Engineer Exhauster Relationship Specialty Start Date End Date Mariluz Watts MD [address] [place] [address] [address] [facility] [address] [place] [address] PCP - General 08/22/10 documented as of this encounter
--- OUTSIDE RECORDS SUMMARY | 2024-08-11 17:08 | XMS_ITS | Encounter Summary ---
Author Organization [facility] [place] [address] Care Team Providers Care Remnant Sorter Name Role Phone Mariluz Watts MD Primary Care Provider [phone] Encounter Details Date Type Department Care Team (Late st Contact Info) Description 01/21/2024 10:50 AM EDT Office [place] [address] Joan Deutsch APRN [facility] [place] [address] Encounter for screening mammogram for breast cancer; History of breast cancer Social History Tobacco Use Types Packs/Day Years Used Date Smoking Tobacco: Former Cigarettes 1 3 0 09/30/1965 - 09/30/1968 Smokeless Tobacco: Never Alcohol Use Standard Drinks/Week Comments No 0 (1 standard drink = 0.6 oz pur e alcohol) [facility] Inpatient Questions Answer Date Recorded [...] of this encounter Progress Notes * Joan Deutshc, WEALTH MANAGEMENT MANAGER - 01/21/2024 10:50 AM EDT Diamond is [...] carcinoma with lobular features Tumor Grade: Intermediate Ygzazi-Moosz-Borrvrlrrr Score: 7 Tubular Differentiation: 3 Mitotic Rate: [...] sentinel nodes: 2 (Specimen A - Right [place] node) No. positive for carcinoma: 1 (H&E) [...] PM EST Office [place] [address] Paula Harris PA [facility] [place] [address] 01/26/2025 9:50 AM EDT Appointment Mammography/[place] [phone] Joan Deutsch, WEALTH MANAGEMENT MANAGER [facility] [place] [address] 01/26/2025 10:30 AM EDT Office [place] [address] Joan Deutsch, [facility] [place] [place] [address] Scheduled Orders Name Type Priority Associated Diagnoses Orde r Schedule Mammo Screening Cad and Irvin Bilateral Imaging Routine Encounter for screening mammogram for breast cancer Expected: 01/20/2025, Expires: 07/22/2025 documented as of this encounter Visit Diagnoses Diagnosis Encounter for screening mammogram for breast cancer History of breast cancer Personal history of malignant neoplasm of breast documented in this encounter Care Teams Remnant Sorter Relationship Specialty Start Date End Date Mariluz Watts MD [address] [place] [address] PCP - General 08/22/10 documented as of this encounter
--- OUTSIDE RECORDS SUMMARY | 2024-08-11 17:08 | XMS_ITS | Encounter Summary ---
Author Organization [facility] Address [facility] [place] [address] Care Team Providers Care Welding Machine Operator Electron Beam Name Role Phone Mariluz Watts MD Primary Care Provider [phone] Encounter Details Date Type Department Care Team (Late st Contact Info) Description 06/24/2024 Telephone Dermatology at [facility] [address] [place] [address] Cornell Hernández MD [facility] [place] [address] Social History Tobacco Use Types Packs/Day Years [...] encounter Miscellaneous Notes * Telephone Encounter - Lana Schroeder - 06/24/2024 9:45 AM EDT Patient called about a couple of issues. One was an appointment that I forwarded her to Eunice. The other is all follows from her [employer] message: Any other options for an appt for hair loss? I need a new prescription for my rosacea combo cream called into [facility] please. I am out of refills. Thank. Diamond [employer] documented in this encounter Plan of Treatment Upcoming Encounters Date Type Department Care Team (Late st Contact Info) Description 11/16/2024 1:00 PM EST Office Visit General Surgery at [place] [phone] Paula Harris PA [facility] [place] [address] 01/26/2025 9:50 AM EDT Appointment Mammography/DXA at [place] [phone] Joan Deutsch APRN [facility] [place] [address] 01/26/2025 10:30 AM EDT Office [place] [address] Joan Deutsch APRN [facility] [place] [address] documented as of this encounter Visit Diagnoses Not on filedocumented in this encounter Care Teams Welding Machine Operator Electron Beam Relationship Specialty Start Date End Date Mariluz Watts MD [address] [place] [address] 1 [place] [address] PCP - General 08/22/10 documented as of this encounter
--- OUTSIDE RECORDS SUMMARY | 2024-08-11 17:08 | XMS_ITS | Encounter Summary ---
[place] [address] Care Team Providers Care Food And Beverage Lead Name Role Phone Mariluz Watts MD Primary Care Provider [phone] Encounter Details Date Type Department Care Team [...] PM EST Office [place] [address] Paula Harris PA [facility] [place] [address] 01/26/2025 9:50 AM EDT Appointment Mammography/DXA at [place] [phone] Joan Deutsch, TEACHING ASSOCIATE [facility] [place] [address] 01/26/2025 10:30 AM EDT Office Visit General Surgery at [place] [phone] Joan Deutsch, [facility] [place] [address] documented as of this encounter Visit Diagnoses Not on filedocumented in this encounter Care Teams Food And Beverage Lead Relationship Specialty Start Date End Date Mariluz Watts MD [address] [place] [address] PCP - General 08/22/10 documented as of this encounter
--- OUTSIDE RECORDS SUMMARY | 2024-08-11 17:08 | XMS_ITS | Encounter Summary ---
Author Organization [facility] [place] [address] Care Team Providers Care Panel Edge Sealer Name Role Phone Mariluz Watts MD Primary Care Provider [phone] Reason for Visit * Reason Comments Follow-up Encounter Details Date Type Department Care Team (Latest Contact Info) Description 11/18/2023 2:00 PM EST Office [place] [address] Aria Higuera MD [facility] [place] [address] AIN III (anal intraepithelial neoplasia III); Anal [...] drink = 0.6 oz pur e alcohol) [facility] Inpatient Questions Answer Date [...] Colon and Rectal Surgery ~ [facility] PCP:Mariluz Watts MD HPI: Diamond [employer] [...] She was reportedly seeing hematology here at [facility] in 2009 who diagnosed her with [...] urology here at as well as in [place]. She has seen a pelvic floor physical therapist. She has been on several medications, including tolterodine. She has seen urology in [place], who have recently performed botox injections into [...] GI bleeding 03/25/2011 Hypermobility syndrome Kidney disease retirement current use of opiate analgesic Motion sickness [...] Chief, Division of Colon and Rectal Surgery [facility] Pager [phone] 11/20/2023 8:16 AM documented in this encounter Plan of Treatment Upcoming Encounters Date Type Department Care Team (Late st Contact Info) Description 11/16/2024 1:00 PM EST Office [place] [address] Paula Harris PA [facility] [place] [address] 01/26/2025 9:50 AM EDT Appointment Mammography[place] [address] Joan Deutsch, GE [facility] [place] [address] 01/26/2025 10:30 AM EDT Office [place] [address] Joan Deutsch, GE [facility] [place] [address] documented as of this encounter Visit Diagnoses [...] urgency documented in this encounter Care Teams Panel Edge Sealer Relationship Specialty Start Date End Date Mariluz Watts MD [address] [place] [address] PCP - General 08/22/10 documented as of this encounter
--- OUTSIDE RECORDS SUMMARY | 2024-08-11 17:08 | XMS_ITS | Encounter Summary ---
Author Organization [facility] [place] [address] Care Team Providers Care Bus And Trolley Inspecting Dispatcher Name Role Phone Mariluz Watts MD Primary Care Provider [phone] Reason for Visit * Reason Comments Hair Loss Encounter Details Date Type Department Care Team (Late st Contact Info) Description 08/05/2024 8:20 AM EST Office Visit Dermatology at [facility] [address] [place] [address] Charu Martin MD [facility] [place] [address] Telogen effluvium Social History Tobacco Use Types Packs/Day Years Used Date Smoking Tobacco: Former Cigarettes 1 3 0 09/30/1965 - 09/30/1968 Smokeless Tobacco: Never Alcohol Use Standard Drinks/Week Comments No 0 (1 standard drink = 0.6 oz pur e alcohol) COUNT INCLUDES THE [facility] Inpatient Questions Answer Date Recorded Does [...] as of this encounter Progress Notes * Charu Martin MD - 08/05/2024 8:20 AM EST Images from the original note were not included. DEPARTMENT OF DERMATOLOGY Medical Dermatology Clinic Provider: Charu Martin MD Patient's preferred name Diamond Preferred contact [...] y.o. Patient returns to clinic today for hair loss. - Patient reports increased hair shedding over the past year. Reports she noticed more hair fallingout a few months ago but that has stabilized in the past month. Reports the top of her head feels thinner. Patient reports she had GI surgery last year and a norovirus infection in the spring. She denies any scalp pain or itch. Denies are discrete patches of hair loss. Reports family history of hair loss in her aunts. Last visit at Dermatology: 04/23/2024 Last visit with this provider: Visit date not found Medications: Reviewed in eD-H Allergies: Reviewed in eD-H Skin Examination: Focused skin examination of the scalp was normal with the exception of the findings below. Assessment/Plan #. 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 Adequate hair density of the midline part and frontal hairline. No evidence of scalp erythema or scaling. - Discussed that this often appears a few months following acute stress (emotional stress, surgery,illness, etc.). No treatment necessary, as it resolves with time. It usually takes 3-6 months to improve. - Potential triggers: GI surgery, GI illness - Patient reports FHx of androgenetic alopecia. Reassured patient no evidence of androgenetic alopecia on exam today. Briefly discussed treatment options including OTC Rogaine 5% foam. - Joint decision today of mindful monitoring Other: OTC skin products discussed RTC: PRN Scribe attestation: Thu Franco [facility] has performed the documentation for this encounter inthe presence of and acting as a scribe for Charu Martin MD. I performed the above scribed service and agree with the accuracy of the documentation in this encounter. Reviewed and signed by: Charu Martin MD Dermatology [facility] Patient seen and evaluated with staff preschool teacher aide: Cande Foster MD Dermatology [facility] * Cande Foster MD - 08/05/2024 8:20 AM EST I directly supervised Charu Martin MD in the care of this Dermatology patient in person. I saw and evaluated this patient with Charu Martin MD. Charu Martin MD presented the history and physical exam details to me, then we saw the patient together, and I confirmed these findings. I agree withdetails as written. My physical examination confirms Charu Martin MD's findings. The assessment and plan were formulated in discussion with me at the time of visit, and I agree with them as documented. Cande Foster MD Staff Prosthetic Lab Technician Department of Dermatology [facility] documented in this encounter Plan of Treatment Upcoming Encounters Date Type Department Care Team (Late st Contact Info) Description 11/16/2024 1:00 PM EST Office [place] [address] Paula Harris PA [facility] [place] [address] 01/26/2025 9:50 AM EDT Appointment Mammography/[place] [address] Joan Deutsch, [facility] [place] [address] 01/26/2025 10:30 AM EDT Office Visit General Surgery at [place] [phone] Joan Deutsch, [facility] [place] [address] documented as of this encounter Visit Diagnoses Diagnosis Telogen effluvium documented in this encounter Care Teams Bus And Trolley Inspecting Dispatcher Relationship Specialty Start Date End Date Mariluz Watts MD [address] [place] [address] PCP - General 08/22/10 documented as of this encounter
--- OUTSIDE RECORDS SUMMARY | 2024-08-11 17:09 | XMS_ITS | Encounter Summary ---
[place] [address] Care Team Providers Care Marine Radio Installer And Servicer Name Role Phone Mariluz Watts MD Primary Care Provider [phone] Encounter Details Date Type Department Care Team (Late st Contact Info) Description 01/15/2023 1:09 PM EDT - 01/15/2023 1:59 PM EDT Hospital Encounter Mammography/[place] [address] Mariluz Watts MD [address] [place] [address] [address] [place], [place] [id number] Visit for screening mammogram Discharge Disposition: Home [...] PM EST Office [place] [phone] Paula Harris PA [facility] [place] [address] 01/26/2025 9:50 AM EDT Appointment Mammography/[place] [address] Joan Deutsch APRN [facility] [place] [address] 01/26/2025 10:30 AM EDT Office [place] [address] Joan Deutsch APRN [facility] [place] [address] documented as of this encounter Procedures Procedure [...] who have questions please contact the health workforce investment act career manager that requested your imaging first. ? Narrative [...] mammogram documented in this encounter Care Teams Marine Radio Installer And Servicer Relationship Specialty Start Date End Date Mariluz Watts MD [address] [place] [address] PCP - General 08/22/10 documented as of this encounter
--- OUTSIDE RECORDS SUMMARY | 2024-08-11 17:09 | XMS_ITS | Encounter Summary ---
[place] [address] Care Team Providers Care Licensed Clinical Psychologist Name Role Phone Marilzu Watts MD Primary Care Provider Reason for Referral * Consultation (Routine) - Closed Specialty Diagnoses / Procedures Referred By John lyons Referred To Contact General Surgery Diagnoses HPV (human papilloma virus) anogenital infection Mayur Banuelos MD [facility] [place] [place] [address] [facility] Gen Surgery [address] [place] [address] Referral ID Status Reason Start Date Expiration Date V isits Requested Visits Authorized [id number] Closed Consult, Test & Treat 09/07/2022 09/07/2023 1 1 Encounter Details Date Type Department Care Team (Late st Contact Info) Description 09/07/2022 6:29 AM EST - 09/07/2022 9:46 AM EST Hospital Encounter [place] [address] Mayur Banuelos MD [facility] [place] [address] Atrial fibrillation, unspecified type; HPV (human papilloma [...] occurs, please contact your Doctor. Please call [phone] before 8pm Mon-Fri with problems, questions or concerns. If you call after 8pm or on weekends, call the Hospital at [phone] and ask to speak to the Practice Manager telephone order clerk and the suppository molding machine operator will contact that person for [...] any problems. Where can you learn more? [facility] View your After Visit Summary and more online at [email or web address] If you would like to provide feedback about your hospital experience, please call the Office of Patient and Family Relations at . If you have received this After Visit Summary in error, please immediately return it in person to the department, or notify the [facility] Access Hospital Privacy Office by calling toll free at between the hours of 8AM and 5PM to arrange for our retrieval of the documents at no cost to you. Content Version: 12.2 ?? [id number] [employer]. Care instructions adapted under license by [facility]. If you have questions about a medical condition or this instruction, always ask your healthcare professional. [employer] disclaims any warranty or liability for your [...] complication. Informed Consent signed by patient (or parts counter representative). documented in this encounter Plan of Treatment Upcoming Encounters Date Type Department Care Team (Late st Contact Info) Description 11/16/2024 1:00 PM EST Office Visit [place] [address] Paula Harris PA [facility] [place] [address] 01/26/2025 9:50 AM EDT Appointment Mammography/[place] [phone] Joan Deutsch APRN [facility] [place] [place] [address] 01/26/2025 10:30 AM EDT Office Visit [place] [address] Joan Deutsch APRN [facility] [place] [place] [address] Scheduled Referrals Name Type Priority Associated Diagnoses [...] 09/07/2022 8:52 AM EST Colonoscopy, Karrie Darby ([id number]) 09/07/2022 8:00 AM EST 5 yr surv from 03/26/17 COLONOSCOPY Routine 09/07/2022 7:41 AM EST documented in this encounter Results * EKG 12 Lead (09/07/2022 9:26 AM EST) Ventricular rate 86 BPM MUSE SYSTEM QRS Duration 80 ms MUSE SYSTEM Q-T Interval 368 ms MUSE SYSTEM QTC Calculated (Bezet) 440 ms MUSE SYSTEM Calculated R Lamar -54 degrees MUSE SYSTEM Calculated T Lamar 19 degrees MUSE SYSTEM INTERPRETATION Atrial fibrillation Left axis deviation Abnormal ECG When compared with ECG of 18-SEP-2018 11:55, Atrial fibrillation has replaced Sinus rhythm Nonspecific T wave abnormality now evident in Inferior leads I personally reviewed the tracing and edited the fellows interpretation Confirmed by fellow MD Francisco, Sharon ([id number]) on 09/07/2022 3:59:02 PM Confirmed by MD MACIEL ARMIN ([id number]) on 09/07/2022 5:35:52 PM MUSE SYSTEM 09/07/2022 9:26 AM EST 09/07/2022 5:35 PM EST Mayur Banuelos MD ECG ORDERABLES Performing Organization Address City/[facility]/ZIP Co de Phone Number MUSE SYSTEM * Specimen to Pathology (09/07/2022 8:54 AM EST) AP Specimen 09/07/2022 8:54 AM EST 09/07/2022 8:54 AM EST Narrative [facility] - 09/07/2022 8:54 AM EST Specimen requisition ordered. ??Separate Pathology report to follow Mayur Banuelos MD PATHOLOGY/CYTOLOG Y ORDERABLES Performing Organization Address City/[facility] Co de Phone Number [facility] [place] [address] * Specimen to Pathology (09/07/2022 8:54 AM EST) AP Specimen 09/07/2022 8:54 AM EST 09/07/2022 8:54 AM EST Narrative [facility] - 09/07/2022 8:54 AM EST Specimen requisition ordered. ??Separate Pathology report to follow Mayur Banuelos MD PATHOLOGY/CYTOLOG Y ORDERABLES Performing Organization Address City/[facility] Co de Phone Number [facility] [place] [address] * Specimen to Pathology (09/07/2022 8:54 AM EST) AP Specimen 09/07/2022 8:54 AM EST 09/07/2022 8:54 AM EST Narrative [facility] - 09/07/2022 8:54 AM EST Specimen requisition ordered. ??Separate Pathology report to follow Mayur Banuelos MD PATHOLOGY/CYTOLOG Y ORDERABLES Performing Organization Address City/[facility] Co de Phone Number [facility] [place] [address] * Surgical Pathology Report (09/07/2022 8:52 AM EST) Final Diagnosis [id number] ? Location: 4T; EA08; A The signing [...] Maxim Verified: ??09/13/2022 14:39 ??Pathologist Performed at: ??-[facility] Dept. of Pathology, [place] [address] Mock Up Maker: Uyen Willis MD, FCAP, ??[facility] Certificate: [id number] ADDITIONAL STUDIES Whole slide scan: A1 Immunohistochemistry [...] labeled D1. ??pps 09/13/2022 2:39 PM EST [facility] GI Biopsy 09/07/2022 8:52 AM EST 09/07/2022 8:52 AM EST GI Biopsy 09/07/2022 8:52 AM EST 09/07/2022 8:52 AM EST GI Biopsy 09/07/2022 8:52 AM EST 09/07/2022 8:52 AM EST GI Biopsy 09/07/2022 8:52 AM EST 09/07/2022 8:52 AM EST Mayur Banuelos MD PATHOLOGY/CYTOLOG Y ORDERABLES [facility] [place] [id number] [facility] [place] [address] * Specimen to Pathology (09/07/2022 8:52 AM EST) AP Specimen 09/07/2022 8:52 AM EST 09/07/2022 8:52 AM EST Narrative [facility] - 09/07/2022 8:52 AM EST Specimen requisition ordered. ??Separate Pathology report to follow Mayur Banuelos MD PATHOLOGY/CYTOLOG Y ORDERABLES [facility] [place] [address] * COLONOSCOPY (09/07/2022 7:41 AM EST) COLONOSCOPY [facility] Endoscopy Procedure Date: 09/07/2022 7:41 AM ? Patient Name: Diamond Gaming ? N: [id number] ? Date of : 1945 ? Age: 76 ? Order #: [id number] ? Instrument Name: [id number] ? Procedure: ? Colonoscopy Indications: ? High [...] preparation was evaluated ? using the BBPS (Vanderbilt Bowel ? Preparation Scale) with scores of: [...] were successfully placed (MR ? conditional). Clip assistant maintenance manager: Steris 11 and 16mm. ? There was [...] documented in this encounter Care Teams Licensed Clinical Psychologist Relationship Specialty Start Date End Date Mariluz Watts MD [address] [place] [address] PCP - General 08/22/10 documented as of this encounter
--- OUTSIDE RECORDS SUMMARY | 2024-08-11 17:09 | XMS_ITS | Encounter Summary ---
Author Organization [facility] [place] [address] Care Team Providers Care Fixed Wing Aircraft Crew Chief Name Role Phone Mariluz Watts MD Primary Care Provider [phone] Encounter Details Date Type Department Care Team (Late st Contact Info) Description 04/05/2023 9:40 AM EDT Office Visit Dermatology at [facility] [address] [place] [address] Cornell Hernández MD [facility] [place] [address] Rosacea Social History Tobacco Use Types Packs/Day [...] next visit or switching to compounded azelaic pnky-knaznkahxrypr-dsbsnqwerm cream from [employer] [facility]. - Briefly discussed the option of treating cosmetically with V-Beam. Patient is not interested at this time. Figure 1 Photo(s) taken and charted with patient's verbal consent. Other: N/A RTC: 3 months for Rosacea follow up. []Note routed to racing secretary and handicapper []Recall placed in scheduling system [x]Appointment scheduled at checkout Scribe attestation: TIMUR Leal has performed the documentation for this encounter in the presence of and acting as a scribe for Cornell Hernández MD. I performed the above scribed service and agree with the accuracy of the documentation in this encounter. Reviewed and signed by: Cornell Hernández MD Dermatology [facility] Patient seen and evaluated with staff glue plant operator: Cande Foster MD Dermatology [facility] * Cande Foster MD - 04/05/2023 9:40 [...] physician's note. Cande Foster MD Staff Physician [facility] Dermatology documented in this encounter Plan of Treatment Upcoming Encounters Date Type Department Care Team (Late st Contact Info) Description 11/16/2024 1:00 PM EST Office [place] [address] Paula Harris, PA [facility] [place] [address] 01/26/2025 9:50 AM EDT Appointment Mammography/DXA at [place] [phone] Joan Deutsch, [facility] [place] [address] 01/26/2025 10:30 AM EDT Office Visit General Surgery at [place] [phone] Joan Deutsch, [facility] [place] [address] documented as of this encounter Visit Diagnoses Diagnosis Rosacea documented in this encounter Care Teams Fixed Wing Aircraft Crew Chief Relationship Specialty Start Date End Date Mariluz Watts MD [address] [place] [address] PCP - General 08/22/10 documented as of this encounter
--- OUTSIDE RECORDS SUMMARY | 2024-08-11 17:09 | XMS_ITS | Encounter Summary ---
Author Organization [facility] [place] [address] Care Team Providers Care Manager Icu Name Role Phone Mariluz Watts MD Primary Care Provider [phone] Encounter Details Date Type Department Care Team (Latest Contact Info) Description 03/13/2023 11:00 AM EDT TH Visit (TeleHealth) [place] [address] Paula Harris PA [facility] [place] [place] [address] Anal condyloma; HPV (human papilloma virus) anogenital [...] Division of Colon and Rectal Surgery ~ [facility] HPI: Diamond Gaming is a [...] past. [facility] diagnosed her with this (Dr. Villalba). She now currently sees Dr. De La Cruz.Has received preop TXA with prior orthopedic surgery. Patient has diagnosis of atrial fibrillation,saw cardiology at [facility], she is now on daily Eliquis. Review [...] hypermobility disorder. She has seen cardiology at [facility] [place], who has recentlystarted her on chronic anticoagulation [...] for surgery on 04/16. Paula Harris PA-C, [facility] Instructor of Surgery Division of Colon and Rectal Surgery [facility] Pager [phone] 1:02 PM 03/13/23 \ documented in this encounter Plan of Treatment Upcoming Encounters Date Type Department Care Team (Late st Contact Info) Description 11/16/2024 1:00 PM EST Office [place] [address] Paula Harris PA [facility] [place] [place] [address] 01/26/2025 9:50 AM EDT Appointment Mammography/[place] [address] Joan Deutsch [facility] [place] [address] 01/26/2025 10:30 AM EDT Office [place] [address] Joan Deutsch [facility] [place] [address] documented as of this encounter Visit Diagnoses Diagnosis 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
--- OUTSIDE RECORDS SUMMARY | 2024-08-11 17:09 | XMS_ITS | Encounter Summary ---
Author Organization [facility] [place] [address] Care Team Providers Care Assembly Technician Name Role Phone Mariluz Watts MD Primary Care Provider [phone] Encounter Details Date Type Department Care Team (Late st Contact Info) Description 04/16/2023 5:08 PM EDT Anesthesia Event [place] [address] Aide Raymundo MD [facility] [place] [address] Debbi Raza MD [facility] [place] [address] Anesthesia Record Procedure Summary Procedure Name Responsible [...] 1231; metacarpal vein (top of hand), left; lcrf-oii-jtyogh catheter system; Anatomical Landmarks; US Not Used; [...] Procedure Summary Date: 04/16/23 Room / Location: [facility] OR [address] [place] [address] MAIN OR Anesthesia Start: 1707 Anesthesia Stop: 1830 Procedures: ANORECTAL EXAM, REQUIRING ANESTHESIA, DIAGNOSTIC (WRVU 1.8) (Anus) ANAL LESION DESTRUCTION, SIMPLE, ELECTRODESICCATION (WRVU 1.91) (Perineum) HEMORRHOIDECTOMY, INTERNAL & EXTERNAL, SIMPLE (WRVU 4.96) (Perineum) Diagnosis: (hemorrhoidectomy/hpv) Surgeons: Aria Higuera MD Responsible Provider: Aide Raymundo MD Anesthesia Type: general ASA Status: 3 All Anesthesia Providers: Anesthesiologist: Aide Raymundo MD; Ranjana Monson MD LAW EXAMINER: Ora Araujo CRNA; Hany Piper CRNA Vitals Value Taken Time BP 129/78 04/16/23 1845 Temp Pulse Resp SpO2 93 % 04/16/23 1848 Pain Level Vitals shown include unvalidated device data. Patient Location: PACU/[facility] Level of Consciousness: Conscious but Sleepy Pain [...] GI bleeding 03/25/2011 Hypermobility syndrome Kidney disease nursing home current use of opiate analgesic Motion [...] general, with a(n) intravenous induction Please see [facility] anesthesia note from 04/05/23 in preparation [...] found during colonoscopy, evaluation by cardiology at [facility]. with MAICO Vasc score of 3, recommendation made for elequis which she is taking. Echo 10/24/2022 shows EF 55-60%m No WMA, mod dilation of LA, mild TR, mild AV sclerosis. Patient has received instruction to stop elequis 3 days prior to procedure Denies stroke, HTN, [place] Pulmonary: Remote smoking history, quit 1968, .5ppd [...] PM EST Office [place] [address] Paula Harris PA [facility] [place] [address] 01/26/2025 9:50 AM EDT Appointment Mammography/[place] [address] Joan Deutsch APRN [facility] [place] [address] 01/26/2025 10:30 AM EDT Office [place] [address] Joan Deutsch APRN [facility] [place] [place] [address] documented as of this encounter Visit Diagnoses [...] mg documented in this encounter Care Teams Assembly Technician Relationship Specialty Start Date End Date Mariluz Watts MD [address] [place] [address] PCP - General 08/22/10 documented as of this encounter
--- OUTSIDE RECORDS SUMMARY | 2024-08-11 17:09 | XMS_ITS | Encounter Summary ---
Author Organization [facility] [place] [address] Care Team Providers Care Remodeler Name Role Phone Mariluz Watts MD Primary Care Provider [phone] Encounter Details Date Type Department Care Team [...] PM EST Office Visit [place] [address] Paula Harris PA [facility] [place] [address] 01/26/2025 9:50 AM EDT Appointment Mammography/[place] [address] Joan Deutsch APRN [facility] [place] [place] [address] 01/26/2025 10:30 AM EDT Office Visit [place] [address] Joan Deutsch, [facility] [place] [address] documented as of this encounter Visit Diagnoses Not on filedocumented in this encounter Care Teams Remodeler Relationship Specialty Start Date End Date Mariluz Watts MD [address] [place] [address] PCP - General 08/22/10 documented as of this encounter
--- OUTSIDE RECORDS SUMMARY | 2024-08-11 17:09 | XMS_ITS | Encounter Summary ---
[place] [address] Care Team Providers Care Window Installation Subcontractor Name Role Phone Mariluz Watts MD Primary Care Provider [phone] Encounter Details Date Type Department Care Team (Late st Contact Info) Description 08/30/2022 Telephone [place] [address] Bella Junior Social History Tobacco Use Types [...] - 08/30/2022 2:05 PM EST Diamond Gaming [id number] Diagnosis/Indication: 5 yr surv from 03/26/17 Please review patient chart to confirm if previous Endoscopy procedure was performed within [facility]. If yes, take note of Anesthesia [...] your procedure. Who will likely be your paratransit driver for the procedure? *Please Verify the [...] PM EST Office Visit General Surgery at [address] Paula Harris PA [facility] [place] [address] 01/26/2025 9:50 AM EDT Appointment Mammography/DXA at [place] [phone] Joan Deutsch APRN [facility] [place] [address] 01/26/2025 10:30 AM EDT Office Visit General Surgery at [place] [phone] Joan Deutsch APRN [facility] [place] [address] documented as of this encounter Visit Diagnoses Not on filedocumented in this encounter Care Teams Window Installation Subcontractor Relationship Specialty Start Date End Date Mariluz Watts MD [address] [place], [place] [address]Y [facility] [address] [place] [address] PCP - General 08/22/10 documented as of this encounter
--- OUTSIDE RECORDS SUMMARY | 2024-08-11 17:09 | XMS_ITS | Encounter Summary ---
Author Organization [facility] [place] [address] Care Team Providers Care Prover Name Role Phone Mariluz Watts MD Primary Care Provider [phone] Reason for Visit * Reason Comments Establish Care * Consultation (Routine) - Closed Specialty Diagnoses / Procedures Referred By John lyons Referred To Contact General Surgery Diagnoses HPV (human papilloma virus) anogenital infection Mayur Banuelos MD [facility] [place] [address] [facility] [address] [place] [address] Referral ID Status Reason Start Date Expiration Date V isits Requested Visits Authorized [id number] Closed Consult, Test & Treat 09/07/2022 09/07/2023 1 1 Encounter Details Date Type Department Care Team (Latest Contact Info) Description 12/12/2022 8:00 AM EDT Office Visit [place] [address] Aria Higuera MD [facility] [place] [address] HPV (human papilloma virus) anogenital infection; Internal [...] HPV infection, as HPV is spread by axmp-yl-ajwh contact and can live in areas not [...] Colon and Rectal Surgery ~ [facility] Care Team: PCP is Mariluz Watts MD. [...] She was reportedly seeing hematology here at [facility] in 2009 who diagnosed her with [...] urology here at as well as in [place]. She has seen a pelvic floor physical [...] atrial fibrillation. She has not seen a freight weigher yet, but is scheduled to see cardiology at [facility] [...] ??? Hypermobility syndrome ??? Kidney disease ??? 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 [...] Procedure Date: 08/18/2006 ??? CREATED BY INTERFACE [id number] Procedure Date: 01/27/2007 ??? CREATED BY INTERFACE [...] ANTERIOR APPROACH performed by NICK ERVIN at [facility] MAIN OR ??? PRO BLEPHAROPLASTY UPPER EYELID W EXCESSIVE SKIN Bilateral 03/27/2019 BLEPHAROPLASTY,UPPER EYELID, WITH EXCESSIVE SKIN, ANDRES (WRVU 6.81) performed by Debbi Green MD at [facility] OSC ??? PRO COLONOSCOPY, DIAGNOSTIC 02/29/2012 COLONOSCOPY, DIAGNOSTIC performed by GALLITO KUO at [facility] ENDOSCOPY ??? PRO COLONOSCOPY, REMV LESN, SNARE N/A 03/26/2017 COLONOSCOPY, POLYPECTOMY, REMOVAL LESION BY SNARE (WRVU 4.67) performed by Gallito Kuo MD at [facility] ENDOSCOPY ??? PRO COLONOSCOPY, REMV LESN, SNARE N/A 09/07/2022 COLONOSCOPY, POLYPECTOMY, REMOVAL LESION BY SNARE (WRVU 4.67) performed by Mayur Banuelos MDat [facility] ENDOSCOPY ??? PRO CYSTO/URETERO/PYELOSCOPY W/LITHOTRIPSY Left 07/27/2015 CYSTOURETEROSCOPY, LITHOTRIPSY performed by Rosales Bowman MD at [facility] MAIN OR ??? PRO CYSTOSCOPY, INSERT URETERAL STENT Left 07/11/2015 CYSTO, STENT PLACEMENT performed by Jose D Chauhan III, MD at [facility] MAIN OR ??? PRO CYSTOSCOPY, INSERT URETERAL STENT Left 07/27/2015 CYSTO, STENT PLACEMENT performed by Rosales Bowman MD at [facility] MAIN OR ??? PRO CYSTOSCOPY, REMV CALCULUS, SIMPLE Left 07/27/2015 CYSTO, REMOVAL OF STENT, FOREIGN BODY OR CALCULUS, SIMPLE performed by Rosales Bowman MD at [facility] MAIN OR ??? PRO CYSTOURETHROSCOPY, URETER CATHETER N/A 07/11/2015 CYSTO, RETROGRADE, URETEROPYELOGRAPHY performed by Jose D Chauhan III, MD at [facility] MAIN OR ? ? PRO EXC SKIN BENIG >4CM TRUNK, ARM, LEG 03/27/2011 EXC BENIGN LESION; INDRA >4.0CM, TRUNK performed by TIRSO CHAUDHARI at [facility] MAIN OR ??? PRO UPPER GI ENDOSCOPY, DIAGNOSTIC N/A 11/06/2018 EGD, UPPER GI ENDOSCOPY performed by Charisma Aguayo MD at [facility] ENDOSCOPY Allergies: Hymenoptera allergenic extract, Tetracycline, [...] clips were successfully placed (MR ?conditional). Clip security clerk: Steris 11 and 16mm. ?There was no [...] She is scheduled to see a women's freight weigher at the [facility] [...] recently been following with a urologist in [place]. She has not been evaluated by urogynecology. We discussed that prior to excising condyloma, we need more clarification and clearance from her freight weigher, who she is going to see in [...] was able to speak with her OR personnel scheduler for a mutually agreeable date. We [...] EUA with biopsy/excision anal lesion; hemorrhoidectomy CPT: 52463; 48277; 84543 OR date: March 2023 Estimated LOS: SDS [...] Chief, Division of Colon and Rectal Surgery [facility] Pager [phone] documented in this encounter Plan of Treatment Upcoming Encounters Date Type Department Care Team (Late st Contact Info) Description 11/16/2024 1:00 PM EST Office Visit [place] [address] Paula Harris PA [facility] [place] [address] 01/26/2025 9:50 AM EDT Appointment Mammography/[place] [phone] Joan Deutsch, [facility] [place] [address] 01/26/2025 10:30 AM EDT Office Visit [place] [phone] Joan Deutsch, [facility] [place] [place] [address] documented as of this encounter Visit Diagnoses [...] syndrome documented in this encounter Care Teams Prover Relationship Specialty Start Date End Date Mariluz Watts MD [address] [place] [address] PCP - General 08/22/10 documented as of this encounter
--- OUTSIDE RECORDS SUMMARY | 2024-08-11 17:09 | XMS_ITS | Encounter Summary ---
Author Organization [facility] [place] [address] Care Team Providers Care Through Operator Name Role Phone Mariluz Watts MD Primary Care Provider Encounter Details Date Type Department Care Team (Late st Contact Info) Description 11/13/2021 [place] [address] Bella Keenan MD [facility] [place] [address] Social History Tobacco Use Types Packs/Day Years [...] [place] - 11/13/2021 2:04 PM EST PHONE: [phone] Pt calls as she received recall letter [...] PM EST Office Visit General Surgery at [place] [phone] Paula Harris PA [facility] [place] [address] 01/26/2025 9:50 AM EDT Appointment Mammography/DXA at [place] [phone] Joan Deutsch SAP BASIS CONSULTANT [facility] [place] [address] 01/26/2025 10:30 AM EDT Office Visit General Surgery at [place] [phone] Joan Deutsch SAP BASIS CONSULTANT [facility] [place] [address] documented as of this encounter Visit Diagnoses Not on filedocumented in this encounter Care Teams Through Operator Relationship Specialty Start Date End Date Mariluz Watts MD [address] [place] [address] PCP - General 08/22/10 documented as of this encounter
--- OUTSIDE RECORDS SUMMARY | 2024-08-11 17:09 | XMS_ITS | Encounter Summary ---
Author Organization [facility] [place] [address] Care Team Providers Care Odd Jobs Day Worker Name Role Phone Mariluz Watts MD Primary Care Provider [phone] Encounter Details Date Type Department Care Team (Late st Contact Info) Description 02/06/2021 3:00 PM EDT TH Visit (TeleHealth) [place] [address] Bella Keenan MD [facility] [place] [address] OAB (overactive bladder) Social History Tobacco Use [...] counseling, reviewing the patient's DH records in [facility] and documenting the visit on the date [...] lost 60 lb in the last year CASH APPLICATIONS SPECIALIST - No headaches or loss of consciousness. [...] hypermobility syndrome ??? GI bleeding 03/25/2011 ??? 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 Motion [...] PM EST Office [place] [address] Paula Harris PA [facility] [place] [address] 01/26/2025 9:50 AM EDT Appointment Mammography/DXA at [place] [phone] Joan Deutsch, GE [facility] [place] [address] 01/26/2025 10:30 AM EDT Office [place] [phone] Joan Deutsch, GE [facility] [place] [address] documented as of this encounter Visit Diagnoses Diagnosis OAB (overactive bladder) Hypertonicity of bladder documented in this encounter Care Teams Odd Jobs Day Worker Relationship Specialty Start Date End Date Mariluz Watts MD [address] [place] [address] PCP - General 08/22/10 documented as of this encounter
--- OUTSIDE RECORDS SUMMARY | 2024-08-11 17:09 | XMS_ITS | Encounter Summary ---
[place] [address] Care Team Providers Care Processing Assistant Name Role Phone Mariluz Watts MD Primary Care Provider [phone] Encounter Details Date Type Department Care Team (Late st Contact Info) Description 01/15/2023 2:15 PM EDT Laboratory Appointment Lab [address] [place] [phone] Social History Tobacco Use Types Packs/Day Years [...] [place] [phone] Paula Harris PA [facility] [place] [address] 01/26/2025 9:50 AM EDT Appointment Mammography/DXA at [place] [phone] Joan Duetsch [facility] [place] [address] 01/26/2025 10:30 AM EDT Office Visit [place] [phone] Joan Deutsch, [facility] [place] [address] documented as of this encounter Visit Diagnoses Not on filedocumented in this encounter Care Teams Processing Assistant Relationship Specialty Start Date End Date Mariluz Watts MD [address] [place] [address] [address] [place] [address] PCP - General 08/22/10 documented as of this encounter
--- OUTSIDE RECORDS SUMMARY | 2024-08-11 17:09 | XMS_ITS | Encounter Summary ---
[place] [address] Care Team Providers Care Business Communications Instructor Name Role Phone Mariluz Watts MD Primary Care Provider [phone] Encounter Details Date Type Department Care Team (Latest Contact Info) Description 01/15/2023 2:00 PM EDT - 01/15/2023 11:59 PM EDT Hospital Encounter Hematology [place] [address] Other osteoporosis without current pathological fracture Discharge [...] PM EST Office [place] [phone] Paula Harris PA [facility] [place] [address] 01/26/2025 9:50 AM EDT Appointment Mammography/[place] [phone] Joan Deutsch APRN [facility] [place] [address] 01/26/2025 10:30 AM EDT Office [place] [phone] Joan Deutsch APRN [facility] [place] [address] documented as of this encounter Procedures Procedure Name Priority Date/Time Associated Diagnosis Comments HC VENIPUNCTURE Routine 01/15/2023 2:20 PM EDT Other osteoporosis without current pathological fracture COMPREHENSIVE METABOLIC PANEL STAT 01/15/2023 2:20 PM EDT Other osteoporosis without current pathological fracture documented in this encounter Results * Vitamin D, 25-Hydroxy (01/15/2023 2:20 PM EDT) Vitamin D Total 25 OH 42 21 - 100 ng/mL [facility] Vit D Interp Sufficient [facility] Blood 01/15/2023 2:20 PM EDT 01/15/2023 2:23 PM EDT Narrative Resulting Agency Comment Spec In Lab Abrahan Merlos MD CHEMISTRY ORDERABLES [facility] [place] [address] * (ABNORMAL) Comprehensive metabolic panel (non-fasting) (01/15/2023 2:20 PM EDT) Glucose 100 65 - 199 mg/dL [facility] Comment:Diabetes: >=200 mg/d L plus symptoms Blood Urea Nitrogen 17 8 - 18 mg/dL [facility] Creatinine 0.78 0.70 - 1.20 mg/dL [facility] Sodium 145 135 - 145 mmol/L [facility] Potassium 4.3 3.5 - 5.0 mmol/L [facility] Comment: Please note: ??Patients with WBC >100,000 may have falsely elevated Potassium levels. ??For accurate Potassium quantification in these patients send serum separator tube (gold top) for subsequent determinations. ??Contact the Clinical Chemistry Laboratory if there are any questions. Chloride 109(H) 98 - 107 mmol/L [facility] Carbon Dioxide 26 22 - 31 mmol/L [facility] Anion Gap 10 5 - 15 mmol/L [facility] Calcium 9.9 8.5 - 10.5 mg/dL [facility] Protein, Total 6.9 6.1 - 8.0 g/dL [facility] Albumin 4.7 3.2 - 5.2 g/dL [facility] Aspartate Aminotransferase 12 0 - 30 unit/L [facility] Alanine Aminotransferase 17 0 - 30 unit/L [facility] Alkaline Phosphatase 90 35 - 105 unit/L [facility] Bilirubin, Total 0.2 0.2 - 1.3 mg/dL [facility] Est Glomerular Filtration Rate 79 >=60 mL/min/1. 73 m?? [facility] Comment: This patient's estimated GFR was [...] Resulting Agency Comment Spec In Lab Abrahan Mrelos MD CHEMISTRY ORDERABLES Performing Organization Address City/State/[facility] Co de Phone Number [facility] [address] documented in this encounter Visit Diagnoses Diagnosis Other osteoporosis without current pathological fracture documented in this encounter Care Teams Business Communications Instructor Relationship Specialty Start Date End Date Mariluz Watts MD [address] [place] [address] PCP - General 08/22/10 documented as of this encounter
--- OUTSIDE RECORDS SUMMARY | 2024-08-11 17:09 | XMS_ITS | Encounter Summary ---
Author Organization [facility] [place] [address] Care Team Providers Care Development Consultant Name Role Phone Mariluz Watts MD Primary Care Provider [phone] Encounter Details Date Type Department Care Team (Latest Contact Info) Description 04/16/2023 11:54 AM EDT - 04/16/2023 8:05 PM EDT Hospital Encounter [place] [address] Aria Higuera MD [facility] [place] [address] Discharge Disposition: Home Social History Tobacco Use Types Packs/Day Years Used Date Smoking Tobacco: Former Cigarettes 1 3 0 09/30/1965 - 09/30/1968 Smokeless Tobacco: Never Alcohol Use Standard Drinks/Week Comments No 0 (1 standard drink = 0.6 oz pur e alcohol) [facility] Inpatient Questions Answer Date Recorded Does Anyone [...] 15 minutes 4X/day. Pain medications Please take [id number] pain medications for post-operative discomfort.(Please continue to [...] PM Aria Higuera MD [facility] 07/08/2023 10:20 AM Cornell Hernández MD [facility] Colon and Rectal Surgery, [place] [address] documented in this encounter Medications at Time [...] [facility] who diagnosed her with this (Dr. Villalba). She now currently sees Dr. De La Cruz.Has received preop TXA with prior orthopedic surgery. Patient has diagnosis of atrial fibrillation,saw [facility]ology at [facility], she is now on daily Eliquis. Stopped [...] Operative Note Patient Name: Diamond Gaming : [id number] MR#: [id number] Case Date: 04/16/2023 Surgeon: Surgeon(s) and Role: [...] LEFT posterior hpv eD-H Order Id number [id number] SPECIMEN TO PATHOLOGY hemorrhoidectomy/hpv interior RIGHT posterior [...] 04/16/2023 5:34 PM EDT [facility] Operative Note Patient Name: Diamond Gaming : [id number] MR#: [id number] Case Date: 04/16/2023 Surgeon: Surgeon(s) and Role: [...] LEFT posterior hpv eD-H Order Id number [id number] SPECIMEN TO PATHOLOGY hemorrhoidectomy/hpv interior RIGHT posterior [...] PM EST Office Visit [place] [address] Paula Harris PA [facility] [place] [address] 01/26/2025 9:50 AM EDT Appointment Mammography/[place] [phone] Joan Deutsch WOOD INSPECTOR [facility] [place] [address] 01/26/2025 10:30 AM EDT Office Visit [place] [address] Joan Deutsch WOOD INSPECTOR [facility] [place] [address] documented as of this encounter Procedures Procedure Name Priority Date/Time Associated Diagnosis Comments SPECIMEN TO PATHOLOGY Routine 04/16/2023 6:01 PM EDT SURGICAL PATHOLOGY REPORT Routine 2022 5:47 PM EDT SPECIMEN TO PATHOLOGY Routine 04/16/2023 5:47 PM EDT Hemorrhoidectomy, Int/Ext, Simple ([id number]) 04/16/2023 5:07 PM EDT hemorrhoidectomy/ hpv Destruction Lesion Anus Simple Electrodesiccation (26184) 04/16/2023 5:07 PM EDT hemorrhoidectomy/ hpv Surg Diagnostic Exam, Anorectal ([id number]) 04/16/2023 5:07 PM EDT hemorrhoidectomy/ hpv documented in this encounter Results * Specimen to Pathology (04/16/2023 6:01 PM EDT) AP Specimen 04/16/2023 6:01 PM EDT 04/16/2023 6:01 PM EDT Narrative [facility] - 04/16/2023 6:01 PM EDT Specimen requisition ordered. ??Separate Pathology report to follow Aria Higuera MD PATHOLOGY/CYTOLOGY O RDERABLES [facility] [place] [address] * Surgical Pathology Report (04/16/2023 5:47 PM EDT) Final Diagnosis [id number] ? Location: [facility]; [facility]; The signing pathologist has (i) examined [...] MD Verified: ??04/23/2023 16:25 ??Pathologist Performed at: ??-[facility] Dept. of Pathology, [place] [address] Special Events Driver: Uyen Willis MD, FCAP, ??CLIA Certificate: [id number] ADDITIONAL STUDIES Whole slide scan: A1 SPECIMEN(S) [...] vasculature. Sections/Processin g: Inked and serially sectioned. Search Advertising Strategist sections in 1 cassette labeled B1. ??vmj 04/23/2023 4:25 PM EDT [facility] ANAL STRUCTURE / Unknown 04/16/2023 5:47 PM EDT 04/16/2023 5:47 PM EDT ANAL STRUCTURE / Unknown 04/16/2023 5:47 PM EDT 04/16/2023 5:47 PM EDT Aria Higuera MD PATHOLOGY/CYTOLOGY O JOSELUIS [facility] [place] [address] [facility] [place] [address] * Specimen to Pathology (04/16/2023 5:47 PM EDT) AP Specimen 04/16/2023 5:47 PM EDT 04/16/2023 5:47 PM EDT Narrative [facility] - 04/16/2023 5:47 PM EDT Specimen requisition ordered. ??Separate Pathology report to follow Aria Higuera MD PATHOLOGY/CYTOLOGY O RDERABLES [facility] [place] [address] documented in this encounter Visit Diagnoses Not [...] RN) documented in this encounter Care Teams Development Consultant Relationship Specialty Start Date End Date Mariluz Watts MD [address] [place] [address] [address] [facility] [place] [address] PCP - General 08/22/10 documented as of this encounter
--- OUTSIDE RECORDS SUMMARY | 2024-08-11 17:09 | XMS_ITS | Encounter Summary ---
Author Organization [facility] [place] [address] Care Team Providers Care Neighborhood Conservation Officer Name Role Phone Mariluz Watts MD Primary Care Provider [phone] Reason for Visit * Reason Comments Follow-up Encounter Details Date Type Department Care Team (Late st Contact Info) Description 01/15/2023 3:30 PM EDT Office Visit Hematology [place] [address] Abrahan Merlos MD [facility] HEMATOLOGY/[place] [address] Malignant neoplasm of right breast, stage 2 [...] on her bone density. Abrahan Merlos MD jewelry sales associate in Hematology-Oncology documented in this encounter Plan of Treatment Upcoming Encounters Date Type Department Care Team (Late st Contact Info) Description 11/16/2024 1:00 PM EST Office Visit General Surgery at [place] [phone] Paula Harris PA [facility] [place] [place] [address] 01/26/2025 9:50 AM EDT Appointment Mammography/DXA at [place] [phone] Joan Deutsch APRN [facility] [place] [place] [address] 01/26/2025 10:30 AM EDT Office Visit [place] [phone] Joan Deutsch APRN [facility] [place] [place] [address] documented as of this encounter Visit Diagnoses Diagnosis Malignant neoplasm of right breast, stage 2 documented in this encounter Care Teams Neighborhood Conservation Officer Relationship Specialty Start Date End Date Mariluz Watts MD [address] [place] [address] PCP - General 08/22/10 documented as of this encounter
--- OUTSIDE RECORDS SUMMARY | 2024-08-11 17:09 | XMS_ITS | Encounter Summary ---
[place] [address] Care Team Providers Care Food Assembler Name Role Phone Mariluz Watts MD Primary Care Provider [phone] Encounter Details Date Type Department Care Team (Late st Contact Info) Description 04/24/2023 Telephone [place] [address] Karine Vaca RN Social History Tobacco Use Types Packs/Day Years Used Date Smoking Tobacco: Former Cigarettes 1 3 0 09/30/1965 - 09/30/1968 Smokeless Tobacco: Never Alcohol Use Standard Drinks/Week Comments No 0 (1 standard drink = 0.6 oz pur e alcohol) [facility] Inpatient Questions Answer Date Recorded Does [...] Operative Note Patient Name: Diamond Gaming : [id number] MR#: [id number] Case Date: 04/16/2023 Surgeon: Surgeon(s) and Role: [...] pain, prolonged nausea and vomiting, please call ([phone] during daytime and [phone] at night/weekends) and/or go to the ED [...] PM EST Office [place] [address] Paula Harris PA [facility] [place] [address] 01/26/2025 9:50 AM EDT Appointment Mammography/[place] [address] Joan Deutsch [facility] [place] [address] 01/26/2025 10:30 AM EDT Office Visit General Surgery at [place] [address] Joan Deutsch [facility] [place] [address] documented as of this encounter Visit Diagnoses Not on filedocumented in this encounter Care Teams Food Assembler Relationship Specialty Start Date End Date Mariluz Watts MD [address] [place] [address] PCP - General 08/22/10 documented as of this encounter
--- OUTSIDE RECORDS SUMMARY | 2024-08-11 17:09 | XMS_ITS | Encounter Summary ---
Author Organization [facility] [place] [address] Care Team Providers Care Criminal Justice Department Chair Name Role Phone Mariluz Watts MD Primary Care Provider [phone] Reason for Visit * Reason Comments Rosacea Encounter Details Date Type Department Care Team (Late st Contact Info) Description 07/08/2023 10:20 AM EDT Office Visit Dermatology at [facility] [address] [place] [address] Cornell Hernández MD [facility] [place] [address] Michaelia; Rosacea Social History Tobacco Use Types Packs/Day Years Used Date Smoking Tobacco: Former Cigarettes 1 3 0 09/30/1965 - 09/30/1968 Smokeless Tobacco: Never Alcohol Use Standard Drinks/Week Comments No 0 (1 standard drink = 0.6 oz pur e alcohol) [facility] Inpatient Questions Answer Date Recorded Does [...] for Rosacea follow up []Note routed to secretary specialist []Recall placed in scheduling system [x]Appointment scheduled at checkout Scribe attestation: TIMUR Mcgowan has performed the documentation for this encounter inthe presence of and acting as a scribe for Cornell Hernández MD. I performed the above scribed service and agree with the accuracy of the documentation in this encounter. Reviewed and signed by: Cornell Hernández MD Dermatology [facility] Patient seen and evaluated with staff organic chemistry teacher: Jaquelin Gonsalves MD Dermatology [facility] * Stan Gonsalves MD - 07/08/2023 10:20 [...] them as documented. STAN GONSALVES MD Staff Aerospace Engineer Officer Armament Department of Dermatology [facility] documented in this encounter Plan of Treatment Upcoming Encounters Date Type Department Care Team (Late st Contact Info) Description 11/16/2024 1:00 PM EST Office [place] [address] Paula Harris PA [facility] [place] [place] [address] 01/26/2025 9:50 AM EDT Appointment Mammography/[place] [address] Joan Deutsch APRN [facility] [place] [place] [address] 01/26/2025 10:30 AM EDT Office [place] [address] Joan Deutsch APRN [facility] [place] [place] [address] documented as of this encounter Visit Diagnoses Diagnosis Milia Sebaceous cyst Rosacea documented in this encounter Care Teams Criminal Justice Department Chair Relationship Specialty Start Date End Date Mariluz Watts MD [address] [place] [address] PCP - General 08/22/10 documented as of this encounter
--- OUTSIDE RECORDS SUMMARY | 2024-08-11 17:09 | XMS_ITS | Encounter Summary ---
[place] [address] Care Team Providers Care Willower Name Role Phone Mariluz Watts MD Primary Care Provider [phone] Reason for Visit * Reason Comments Medication Refill Encounter Details Date Type Department Care Team (Late Contact Info) Description 07/08/2021 Ref[place] [address] Bella Keenan MD [facility] [place] [address] Social History Tobacco Use Types Packs/Day Years [...] PM EST Office Visit General Surgery at [address] Paula Harris PA [facility] [place] [address] 01/26/2025 9:50 AM EDT Appointment Mammography/[place] [address] Joan Deutsch APRN [facility] [place] [address] 01/26/2025 10:30 AM EDT Office [place] [address] Joan Deutsch, GE [facility] [place] [address] documented as of this encounter Visit Diagnoses Not on filedocumented in this encounter Care Teams Willower Relationship Specialty Start Date End Date Mariluz Watts MD [address] [place] [address] PCP - General 08/22/10 documented as of this encounter
--- OUTSIDE RECORDS SUMMARY | 2024-08-11 17:09 | XMS_ITS | Encounter Summary ---
[place] [address] Care Team Providers Care Cna Name Role Phone Mariluz Watts MD Primary Care Provider [phone] Encounter Details Date Type Department Care Team (Late st Contact Info) Description 01/01/2023 Telephone [place] [address] Rayne Nicole RN Social History Tobacco Use [...] Office Visit General Surgery at [place] [phone] Paula Harris PA [facility] [place] [address] 01/26/2025 9:50 AM EDT Appointment Mammography/DXA at [place] [phone] Joan Deutsch, [facility] [place] [address] 01/26/2025 10:30 AM EDT Office [place] [address] Joan Deutsch, COIL TESTER [facility] [place] [address] documented as of this encounter Visit Diagnoses Not on filedocumented in this encounter Care Teams Cna Relationship Specialty Start Date End Date Mariluz Watts MD [address] [place] [address] [address] [facility] [address] [place] [address] PCP - General 08/22/10 documented as of this encounter
--- OUTSIDE RECORDS SUMMARY | 2024-08-11 17:09 | XMS_ITS | Encounter Summary ---
[place] [address] Care Team Providers Care Gas Transfer Operator Name Role Phone Mariluz Watts MD Primary Care Provider [phone] Encounter Details Date Type Department Care Team [...] PM EST Office [place] [address] Paula Harris PA [facility] [place] [address] 01/26/2025 9:50 AM EDT Appointment Mammography/DXA at [place] [phone] Joan Deutsch, SONOGRAM TECHNICIAN [facility] [place] [address] 01/26/2025 10:30 AM EDT Office Visit General Surgery at [place] [phone] Joan Deutsch, [facility] [place] [address] documented as of this encounter Visit Diagnoses Not on filedocumented in this encounter Care Teams Gas Transfer Operator Relationship Specialty Start Date End Date Mariluz Watts MD [address] [place] [address] PCP - General 08/22/10 documented as of this encounter
--- OUTSIDE RECORDS SUMMARY | 2024-08-11 17:09 | XMS_ITS | Encounter Summary ---
[place] [address] Care Team Providers Care Lunchroom Food Service Supervisor Name Role Phone Mariluz Watts MD Primary Care Provider [phone] Encounter Details Date Type Department Care Team (Late st Contact Info) Description 12/26/2021 1:00 PM EDT Office Visit [place] [address] Joan Deutsch APRN [facility] [place] [address] Encounter for screening mammogram for breast cancer; [...] carcinoma with lobular features Tumor Grade: Intermediate Oawgyo-Gbvwy-Nixxwbnqqx Score: 7 Tubular Differentiation: 3 Mitotic Rate: [...] sentinel nodes: 2 (Specimen A - Right [place] node) No. positive for carcinoma: 1 (H&E) No. with IHC (+) cells only: 0 (cells not seen by H&E, see Note*) No. negative for carcinoma: 1 (both H&E and IHC For positive nodes: Largest kristi deposit 0.2 cm Extranodal extension Absent Estrogen/Progestin receptors: Performed on blocks C2 and C11 ER immunoreactivity: Positive (see Diagnostic hanna*) [place] immunoreactivity: Positive (see Diagnostic hanna*) HER2/shonda expression [...] PM EST Office [place] [address] Paula Harris PA [facility] [place] [address] 01/26/2025 9:50 AM EDT Appointment Mammography/[place] [address] Joan Deutsch [facility] [place] [address] 01/26/2025 10:30 AM EDT Office Visit [place] [address] Joan Deutsch, [facility] [place] [address] documented as of this encounter Visit Diagnoses Diagnosis Encounter for screening mammogram for breast cancer History of breast cancer Personal history of malignant neoplasm of breast documented in this encounter Care Teams Lunchroom Food Service Supervisor Relationship Specialty Start Date End Date Mariluz Watts MD [address] [place] [address] PCP - General 08/22/10 documented as of this encounter
--- OUTSIDE RECORDS SUMMARY | 2024-08-11 17:09 | XMS_ITS | Encounter Summary ---
Author Organization [facility] [place] [address] Care Team Providers Care Online Tutor Name Role Phone Mariluz Watts MD Primary Care Provider [phone] Encounter Details Date Type Department Care Team (Late st Contact Info) Description 02/12/2023 9:20 AM EDT Office Visit Dermatology at [place] [address] [place] [address] Cornell Hernández MD [facility] [address] [place] [address] Rosacea; Sebaceous hyperplasia of face; Telangiectasias Social [...] next visit or switching to compounded azelaic ivvd-xopqrbcithdlv-guucixtcxw cream from [employer]. - Briefly discussed [...] 1-2 months for rosacea []Note routed to guidance secretary []Recall placed in scheduling system [x]Appointment [...] [place] Patient seen and evaluated with staff centerless grinder operator: Gardenia Cruz MD Dermatology [facility] [place] * Gardenia Cruz MD - 02/12/2023 9:20 [...] PM EST Office Visit [place] [address] Paula Harris PA [facility] [place] [address] 01/26/2025 9:50 AM EDT Appointment Mammography/DXA at [place] [phone] Joan Deutsch [facility] [place] [address] 01/26/2025 10:30 AM EDT Office Visit [place] [address] Joan Deutsch, [facility] [place] [address] documented as of this encounter Visit Diagnoses Diagnosis Rosacea Sebaceous hyperplasia of face Other specified disease of sebaceous glands Telangiectasias Other and unspecified capillary diseases documented in this encounter Care Teams Online Tutor Relationship Specialty Start Date End Date Mariluz Watts MD [address] [place] [address] PCP - General 08/22/10 documented as of this encounter
--- OUTSIDE RECORDS SUMMARY | 2024-08-11 17:09 | XMS_ITS | Encounter Summary ---
[place] [address] Care Team Providers Care Trust Officer Name Role Phone Mariluz Watts MD Primary Care Provider [phone] Encounter Details Date Type Department Care Team (Late st Contact Info) Description 01/15/2023 1:40 PM EDT Office [place] [address] Joan Deutsch APRN [facility] [place] [address] Encounter for screening mammogram for breast cancer; [...] carcinoma with lobular features Tumor Grade: Intermediate Emienz-Mwgva-Ubiphwgpeg Score: 7 Tubular Differentiation: 3 Mitotic Rate: [...] sentinel nodes: 2 (Specimen A - Right [employer] node) No. positive for carcinoma: 1 (H&E) No. with IHC (+) cells only: 0 (cells not seen by H&E, see Note*) No. negative for carcinoma: 1 (both H&E and IHC For positive nodes: Largest kristi deposit 0.2 cm Extranodal extension Absent Estrogen/Progestin receptors: Performed on blocks C2 and C11 ER immunoreactivity: Positive (see Diagnostic hanna*) [place] immunoreactivity: Positive (see Diagnostic hanna*) HER2/shonda expression [...] a recent colonoscopy. She is going to [place] for a consult as she does not [...] EST Office [place] [address] Paula Harris PA [facility] [place] [address] 01/26/2025 9:50 AM EDT Appointment Mammography/[place] [address] Joan Deutsch APRN [facility] [place] [address] 01/26/2025 10:30 AM EDT Office [place] [address] Joan Deutsch APRN [facility] [place] [address] documented as of this encounter Results * Mammo Screening Cad and Irvin Bilateral (01/21/2024 10:07 AM EDT) [employer] WORKSTATION ID [id number] DH RAD Anatomical Region Laterality Modality [...] who have questions please contact the health lpn care manager that requested your imaging first. ? [...] and left breast. Stable appearance. Joan Deutsch ECONOMICS FACULTY MEMBER IMG MAMMO ORDERABLE S documented in this encounter Visit Diagnoses Diagnosis Encounter for screening mammogram for breast cancer History of breast cancer Personal history of malignant neoplasm of breast Encounter for screening mammogram for breast cancer documented in this encounter Care Teams Trust Officer Relationship Specialty Start Date End Date Mariluz Watts MD [address] [place] [address] PCP - General 08/22/10 documented as of this encounter
--- OUTSIDE RECORDS SUMMARY | 2024-08-11 17:09 | XMS_ITS | Encounter Summary ---
Author Organization [facility] [place] [address] Care Team Providers Care Editorial Cartoonist Name Role Phone Mariluz Watts MD Primary Care Provider [phone] Encounter Details Date Type Department Care Team [...] PM EST Office [place] [address] Paula Harris PA [facility] [place] [address] 01/26/2025 9:50 AM EDT Appointment Mammography/[place] [address] Joan Deutsch APRN [facility] [place] [address] 01/26/2025 10:30 AM EDT Office [place] [address] Joan Deutsch, GE [facility] [place] [address] documented as of this encounter Visit Diagnoses Not on filedocumented in this encounter Care Teams Editorial Cartoonist Relationship Specialty Start Date End Date Mariluz Watts MD [address] [place] [address] PCP - General 08/22/10 documented as of this encounter
--- OUTSIDE RECORDS SUMMARY | 2024-08-11 17:09 | XMS_ITS | Encounter Summary ---
[place] [address] Care Team Providers Care Lineman Name Role Phone Mariluz Watts MD Primary Care Provider [phone] Encounter Details Date Type Department Care Team [...] PM EST Office [place] [address] Paula Harris PA [facility] [place] [place] [address] 01/26/2025 9:50 AM EDT Appointment Mammography/DXA at [place] [phone] Joan Deutsch, HAND STAMPER [facility] [place] [address] 01/26/2025 10:30 AM EDT Office Visit General Surgery at [place] [phone] Joan Deutsch, [facility] [address] documented as of this encounter Visit Diagnoses Not on filedocumented in this encounter Care Teams Lineman Relationship Specialty Start Date End Date Mariluz Watts MD [address] [place] [address] PCP - General 08/22/10 documented as of this encounter
--- OUTSIDE RECORDS SUMMARY | 2024-08-11 17:09 | XMS_ITS | Encounter Summary ---
Author Organization [facility] [place] [address] Care Team Providers Care Cdl Flatbed Truck Driver Name Role Phone Mariluz Watts MD Primary Care Provider [phone] Encounter Details Date Type Department Care Team [...] PM EST Office Visit [place] [address] Paula Harris PA [facility] [place] [address] 01/26/2025 9:50 AM EDT Appointment Mammography/[place] [address] Joan Deutsch APRN [facility] [place] [address] 01/26/2025 10:30 AM EDT Office Visit [place] [address] Joan Deutsch, GE [facility] [place] [address] documented as of this encounter Visit Diagnoses Not on filedocumented in this encounter Care Teams Cdl Flatbed Truck Driver Relationship Specialty Start Date End Date Mariluz Watts MD [address] [place] [address] PCP - General 08/22/10 documented as of this encounter
--- OUTSIDE RECORDS SUMMARY | 2024-08-11 17:09 | XMS_ITS | Encounter Summary ---
Author Organization [facility] [place] [address] Care Team Providers Care Overhauler Helper Name Role Phone Mariluz Watts MD Primary Care Provider [phone] Encounter Details Date Type Department Care Team [...] PM EST Office [place] [address] Paula Harris PA [facility] [place] [address] 01/26/2025 9:50 AM EDT Appointment Mammography/[place] [address] Joan Deutsch APRN [facility] [place] [address] 01/26/2025 10:30 AM EDT Office [place] [address] Joan Deutsch, GE [facility] [place] [address] documented as of this encounter Visit Diagnoses Not on filedocumented in this encounter Care Teams Overhauler Helper Relationship Specialty Start Date End Date Mariluz Watts MD [address] [place] [address] PCP - General 08/22/10 documented as of this encounter
--- OUTSIDE RECORDS SUMMARY | 2024-08-11 17:09 | XMS_ITS | Encounter Summary ---
[place] [address] Care Team Providers Care Lumber Sticker Name Role Phone Mariluz Watts MD Primary Care Provider Encounter Details Date Type Department Care Team (Latest Contact Info) Description 12/26/2021 9:18 AM EDT Hospital Encounter Mammography/[place] [address] Joan Deutsch APRN [facility] [place] [address] History of breast cancer; Encounter for screening [...] TABLET DAILY 90 tablet 3 07/09/2021 11/18/2023 [id number] ORAL Take 1 caplet by mouth daily. [...] daily as needed. 09/07/2022 multivit with calcium,iron,min (HRPWNUURLMAE-CV-JDCR- MINERALS ORAL) Take by mouth. 09/07/2022 acetaminophen [...] PM EST Office [place] [address] Paula Harris PA [facility] [place] [address] 01/26/2025 9:50 AM EDT Appointment Mammography/[place] [address] Joan Deutsch, [facility] [place] [address] 01/26/2025 10:30 AM EDT Office [place] [address] Joan Deutsch, [facility] [place] [address] documented as of this encounter Procedures Procedure [...] have questions please contact the health care manager cna that requested your imaging first. ? Electronically signed by: Gardenia Wolf MD, [facility] ([phone]), at 12/26/2021 11:07 AM Joan Deutsch SAMPLER RADIOACTIVE WASTE IMG MAMMO ORDERABLE S documented in this encounter Visit Diagnoses Diagnosis History of breast cancer Personal history of malignant neoplasm of breast Encounter for screening mammogram for breast cancer documented in this encounter Care Teams Lumber Sticker Relationship Specialty Start Date End Date Mariluz Watts MD [address] [place] [address] PCP - General 08/22/10 documented as of this encounter
--- OUTSIDE RECORDS SUMMARY | 2024-08-11 17:09 | XMS_ITS | Encounter Summary ---
Author Organization [facility] [place] [address] Care Team Providers Care National Stormwater Leader Name Role Phone Mariluz Watts MD Primary Care Provider [phone] Encounter Details Date Type Department Care Team (Late st Contact Info) Description 11/15/2022 Telephone [facility] [address] [place] [address] Terry Min MD [facility] [place] [address] Social History Tobacco Use Types Packs/Day Years [...] her home line if she does not bead picker. I left a voicemailwith my direct callback number for Diamond to please return my call at her soonest convenience. documented in this encounter Plan of Treatment Upcoming Encounters Date Type Department Care Team (Late st Contact Info) Description 11/16/2024 1:00 PM EST Office [place] [address] Paula Harris PA [facility] [place] [address] 01/26/2025 9:50 AM EDT Appointment Mammography[place] [address] Joan Deutsch, [facility] [place] [place] [address] 01/26/2025 10:30 AM EDT Office [place] [address] Joan Deutsch [facility] [place] [address] documented as of this encounter Visit Diagnoses Not on filedocumented in this encounter Care Teams National Stormwater Leader Relationship Specialty Start Date End Date Mariluz Watts MD [address] [place] [address] PCP - General 08/22/10 documented as of this encounter
--- OUTSIDE RECORDS SUMMARY | 2024-08-11 17:09 | XMS_ITS | Encounter Summary ---
[place] [address] Care Team Providers Care Wiring Technician Name Role Phone Mariluz Watts MD Primary Care Provider [phone] Encounter Details Date Type Department Care Team (Late st Contact Info) Description 04/19/2023 Telephone [place] [address] Linsey Chang RN Social History Tobacco Use Types Packs/Day Years Used Date Smoking Tobacco: Former Cigarettes 1 3 0 09/30/1965 - 09/30/1968 Smokeless Tobacco: Never Alcohol Use Standard Drinks/Week Comments No 0 (1 standard drink = 0.6 oz pur e alcohol) [facility] Inpatient Questions Answer Date Recorded [...] PM EST Office Visit General Surgery at [place] [phone] Paula Harris PA [facility] [place] [address] 01/26/2025 9:50 AM EDT Appointment Mammography/[place] [phone] Joan Deutsch, SALES AUDIT CLERKFORMERLY [facility] [address] 01/26/2025 10:30 AM EDT Office [place] [phone] Joan Deutsch, SALES AUDIT CLERK [facility] [place] [address] documented as of this encounter Visit Diagnoses Not on filedocumented in this encounter Care Teams Wiring Technician Relationship Specialty Start Date End Date Mariluz Watts MD [address] [place] [address] PCP - General 08/22/10 documented as of this encounter
--- OUTSIDE RECORDS SUMMARY | 2024-08-11 17:09 | XMS_ITS | Encounter Summary ---
Author Organization [facility] [place] [address] Care Team Providers Care Dust Collector Attendant Name Role Phone Mariluz Watts MD Primary Care Provider [phone] Encounter Details Date Type Department Care Team (Late st Contact Info) Description 09/07/2022 7:45 AM EST - 09/07/2022 8:30 AM EST [place] [address] Mayur Banuelos MD [facility] [place] [address] COLONOSCOPY, POLYPECTOMY, REMOVAL LESION BY SNARE (WRVU [...] occurs, please contact your Doctor. Please call [phone] before 8pm Mon-Fri with problems, questions or concerns. If you call after 8pm or on weekends, call the Hospital at [phone] and ask to speak to the Store Person personnel worker and the utilities operator will contact that person for you. When should you call for help? Call [phone] anytime you think you may need emergency [...] Summary and more online at [email or web address] If you would like to [...] cost to you. Content Version: 12.2 ?? [id number] Identified. Care instructions adapted under license by [facility]. If you have questions about a medical condition or this instruction, always ask your healthcare professional. Identified disclaims any warranty or liability for your [...] complication. Informed Consent signed by patient (or quality audit representative). documented in this encounter Plan of Treatment Upcoming Encounters Date Type Department Care Team (Late st Contact Info) Description 11/16/2024 1:00 PM EST Office [place] [address] Paula Harris PA [facility] [place] [address] 01/26/2025 9:50 AM EDT Appointment Mammography/[place] [address] Joan Deutsch APRN [facility] [place] [address] 01/26/2025 10:30 AM EDT Office [place] [address] Joan Deutsch APRN [facility] [place] [address] Scheduled Referrals Name Type Priority Associated Diagnoses [...] 8:52 AM EST Colonoscopy, Remv Karrie Bradley ([id number]) 09/07/2022 8:00 AM EST 5 yr surv from 03/26/17 COLONOSCOPY Routine 09/07/2022 7:41 AM EST documented in this encounter Results * EKG 12 Lead (09/07/2022 9:26 AM EST) Ventricular rate 86 BPM MUSE SYSTEM QRS Duration 80 ms MUSE SYSTEM Q-T Interval 368 ms MUSE SYSTEM QTC Calculated (Bezet) 440 ms MUSE SYSTEM Calculated R [place] -54 degrees MUSE SYSTEM Calculated T [place] 19 degrees MUSE SYSTEM INTERPRETATION Atrial fibrillation Left axis deviation Abnormal ECG When compared with ECG of 18-SEP-2018 11:55, Atrial fibrillation has replaced Sinus rhythm Nonspecific T wave abnormality now evident in Inferior leads I personally reviewed the tracing and edited the fellows interpretation Confirmed by fellow MD Francisco, Sharon ([id number]) on 09/07/2022 3:59:02 PM Confirmed by MD JANELL, PAMELA ([id number]) on 09/07/2022 5:35:52 PM MUSE SYSTEM 09/07/2022 9:26 AM EST 09/07/2022 5:35 PM EST Mayur Banuelos MD ECG ORDERABLES MUSE SYSTEM * Specimen to Pathology (09/07/2022 8:54 AM EST) AP Specimen 09/07/2022 8:54 AM EST 09/07/2022 8:54 AM EST Narrative [facility] - 09/07/2022 8:54 AM EST Specimen requisition ordered. ??Separate Pathology report to follow Mayur Banuelos MD PATHOLOGY/CYTOLOG Y ORDERABLES Performing Organization Address [facility] [place] [address] * Specimen to Pathology (09/07/2022 8:54 AM EST) AP Specimen 09/07/2022 8:54 AM EST 09/07/2022 8:54 AM EST Narrative [facility] - 09/07/2022 8:54 AM EST Specimen requisition ordered. ??Separate Pathology report to follow Mayur Banuelos MD PATHOLOGY/CYTOLOG Y ORDERABLES Performing Organization Address [facility] [place] [address] * Specimen to Pathology (09/07/2022 8:54 AM EST) AP Specimen 09/07/2022 8:54 AM EST 09/07/2022 8:54 AM EST Narrative [facility] - 09/07/2022 8:54 AM EST Specimen requisition ordered. ??Separate Pathology report to follow Mayur Banuelos MD PATHOLOGY/CYTOLOG Y ORDERABLES Performing Organization Address [facility] [place] [address] * Surgical Pathology Report (09/07/2022 8:52 AM EST) Final Diagnosis [id number] ? Location: ; EA08; A The signing [...] MD Verified: ??09/13/2022 14:39 ??Pathologist Performed at: ??-[facility] Dept. of Pathology, [place] [address] Fisher Mussel: Uyen Willis MD, FCAP, ??CLIA Certificate: [id number] ADDITIONAL STUDIES Whole slide scan: A1 Immunohistochemistry [...] labeled D1. ??pps 09/13/2022 2:39 PM EST [facility] GI Biopsy 09/07/2022 8:52 AM EST 09/07/2022 8:52 AM EST GI Biopsy 09/07/2022 8:52 AM EST 09/07/2022 8:52 AM EST GI Biopsy 09/07/2022 8:52 AM EST 09/07/2022 8:52 AM EST GI Biopsy 09/07/2022 8:52 AM EST 09/07/2022 8:52 AM EST Mayur Banuelos MD PATHOLOGY/CYTOLOG Y ORDERABLES [facility] [address] [place] [address] * Specimen to Pathology (09/07/2022 8:52 AM EST) AP Specimen 09/07/2022 8:52 AM EST 09/07/2022 8:52 AM EST Narrative [facility] - 09/07/2022 8:52 AM EST Specimen requisition ordered. ??Separate Pathology report to follow Mayur Banuelos MD PATHOLOGY/CYTOLOG Y ORDERABLES [facility] [place] [address] * COLONOSCOPY (09/07/2022 7:41 AM EST) COLONOSCOPY [facility] Endoscopy Procedure Date: 09/07/2022 7:41 AM ? Patient Name: Diamond Gaming ? Date of : 1945 ? Age: 76 ? Order #: [id number] ? Instrument Name: [id number] ? Procedure: ? Colonoscopy Indications: ? High risk colon cancer ? surveillance: Personal history of ? colonic polyps Patient Profile: ? This is a 76 year old female. Refer ? to note in patient chart for ? documentation of history and ? physical. Last Colonoscopy: 2017. Providers: ? Mayur Banuelos MD, Navi R. ? [place] Martinez, Beckie Lee Referring : ?Mariluz Wtats MD Medicines: ? Midazolam 5 mg IV, [...] preparation was evaluated ? using the BBPS (Benton Bowel ? Preparation Scale) with scores of: [...] were successfully placed (MR ? conditional). Clip open claims representative: Steris 11 and 16mm. ? There was [...] RN) documented in this encounter Care Teams Dust Collector Attendant Relationship Specialty Start Date End Date Mariluz Watts MD [address] [place] [address] PCP - General 08/22/10 documented as of this encounter
--- OUTSIDE RECORDS SUMMARY | 2024-08-11 17:09 | XMS_ITS | Encounter Summary ---
Author Organization [facility] [place] [address] Care Team Providers Care Machine Specialist Name Role Phone Mariluz Watts MD Primary Care Provider [phone] Reason for Visit * Reason Comments Follow Up Surgery Encounter Details Date Type Department Care Team (Latest Contact Info) Description 05/20/2023 2:00 PM EDT Office [place] [address] Aria Higuera MD [facility] [place] [address] AIN III (anal intraepithelial neoplasia III) Social History Tobacco Use Types Packs/Day Years Used Date Smoking Tobacco: Former Cigarettes 1 3 0 09/30/1965 - 09/30/1968 Smokeless Tobacco: Never Alcohol Use Standard Drinks/Week Comments No 0 (1 standard drink = 0.6 oz pur e alcohol) [facility] Inpatient Questions Answer Date Recorded Does [...] Colon and Rectal Surgery ~ [facility] PCP:Mariluz Watts MD HPI: Diamond [...] Dotson Verified: 04/23/2023 16:25 Pathologist Performed at: -[facility] Dept. of Pathology, [place] [address] Clipper Machine: Uyen Willis MD, FCAP, CLIA Certificate: [id number] ADDITIONAL STUDIES Whole slide scan: A1 Significant past medical history Patient has complex past medical history. She reports that she was diagnosed with a variant of Marfan syndrome, hypermobility syndrome. 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 She was reportedly seeing hematology here at [facility] in 2009 who diagnosed her with this. [...] urology here at as well as in [place]. 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 current use of opiate analgesic Motion sickness [...] Chief, Division of Colon and Rectal Surgery [facility] Pager [phone] 05/20/2023 2:01 PM documented in this encounter Plan of Treatment Upcoming Encounters Date Type Department Care Team (Late st Contact Info) Description 11/16/2024 1:00 PM EST Office Visit General Surgery at [place] [phone] Paula Harris, PA [facility] [place] [address] 01/26/2025 9:50 AM EDT Appointment Mammography/DXA at [place] [phone] Joan Deutsch, [facility] [place] [address] 01/26/2025 10:30 AM EDT Office [place] [phone] Joan Deutsch, [facility] [place] [address] documented as of this encounter Visit Diagnoses Diagnosis 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
--- OUTSIDE RECORDS SUMMARY | 2024-08-11 17:09 | XMS_ITS | Encounter Summary ---
Author Organization [facility] [place] [address] Care Team Providers Care Consulting Manager Name Role Phone Mariluz Watts MD Primary Care Provider [phone] Reason for Visit * Reason Comments Follow-up Encounter Details Date Type Department Care Team (Late st Contact Info) Description 12/26/2021 11:30 AM EDT Office Visit Hematology [place] [address] Abrahan Merlos MD [facility] HEMATOLOGY/[place] [address] Malignant neoplasm of right breast, stage 2; [...] Her hands and fingers are weak, her welfare analyst strength is poor, and she tends [...] with her next mammograms. Abrahan Merlos MD aircraft systems repairer in Hematology-Oncology documented in this encounter Plan of Treatment Upcoming Encounters Date Type Department Care Team (Late st Contact Info) Description 11/16/2024 1:00 PM EST Office Visit General [place] [phone] Paula Harris PA [facility] [place] [address] 01/26/2025 9:50 AM EDT Appointment Mammography/[place] [address] Joan Deutsch [facility] [place] [address] 01/26/2025 10:30 AM EDT Office Visit [place] [phone] Joan Deutsch, [facility] [place] [address] documented as of this encounter Results * (ABNORMAL) Comprehensive metabolic panel (non-fasting) (01/15/2023 2:20 PM EDT) [facility] Signature Glucose 100 65 - 199 mg/dL [facility] Comment:Diabetes: >=200 mg/d L plus symptoms Blood Urea Nitrogen 17 8 - 18 mg/dL [facility] Creatinine 0.78 0.70 - 1.20 mg/dL [facility] Sodium 145 135 - 145 mmol/L [facility] Potassium 4.3 3.5 - 5.0 mmol/L [facility] Comment: Please note: ??Patients with WBC >100,000 may have falsely elevated Potassium levels. ??For accurate Potassium quantification in these patients send serum separator tube (gold top) for subsequent determinations. ??Contact the Clinical Chemistry Laboratory if there are any questions. Chloride 109(H) 98 - 107 mmol/L [facility] Carbon Dioxide 26 22 - 31 mmol/L [facility] Anion Gap 10 5 - 15 mmol/L [facility] Calcium 9.9 8.5 - 10.5 mg/dL [facility] Protein, Total 6.9 6.1 - 8.0 g/dL [facility] Albumin 4.7 3.2 - 5.2 g/dL [facility] Aspartate Aminotransferase 12 0 - 30 unit/L [facility] Alanine Aminotransferase 17 0 - 30 unit/L [facility] Alkaline Phosphatase 90 35 - 105 unit/L [facility] Bilirubin, Total 0.2 0.2 - 1.3 mg/dL [facility] Est Glomerular Filtration Rate 79 >=60 mL/min/1. 73 m?? [facility] Comment: This patient's estimated GFR [...] Merlos MD CHEMISTRY ORDERABLES Performing Organization Address City/[facility]/ZIP Co de Phone Number [facility] [place] [address] * Vitamin D, 25-Hydroxy (01/15/2023 2:20 PM EDT) Vitamin D Total 25 OH 42 21 - 100 ng/mL [facility] Vit D Interp Sufficient [facility] Blood 01/15/2023 2:20 PM EDT 01/15/2023 2:23 PM EDT Narrative Resulting Agency Comment Spec In Lab Abrahan Merlos MD [place] [address] documented in this encounter Visit Diagnoses Diagnosis Malignant neoplasm of right breast, stage 2 Other osteoporosis without current pathological fracture documented in this encounter Care Teams Consulting Manager Relationship Specialty Start Date End Date Mariluz Watts MD [address] [place] [address] PCP - General 08/22/10 documented as of this encounter
--- OUTSIDE RECORDS SUMMARY | 2024-08-11 17:09 | XMS_ITS | Encounter Summary ---
[place] [address] Care Team Providers Care Business Systems Administrator Name Role Phone Mariluz Watts MD Primary Care Provider [phone] Encounter Details Date Type Department Care Team (Late st Contact Info) Description 04/05/2023 11:00 AM EDT [place] [address] Social History Tobacco Use Types Packs/Day Years [...] Office Visit General Surgery at [place] [phone] Paula Harris PA [facility] [place] [address] 01/26/2025 9:50 AM EDT Appointment Mammography/DXA at [place] [phone] Joan Deutsch, [employer] [facility] [place] [address] 01/26/2025 10:30 AM EDT Office [place] [phone] Joan Deutsch, [facility] [place] [address] documented as of this encounter Visit Diagnoses Not on filedocumented in this encounter Care Teams Business Systems Administrator Relationship Specialty Start Date End Date Mariluz Watts MD [address] [place] [address] [address] [facility] [place] [address] PCP - General 08/22/10 documented as of this encounter
--- OUTSIDE RECORDS SUMMARY | 2024-08-11 17:09 | XMS_ITS | Encounter Summary ---
Author Organization [facility] [place] [address] Care Team Providers Care Utility Service Worker Name Role Phone Mariluz Watts MD Primary Care Provider [phone] Reason for Referral * Diagnostic Test (Routine) - Closed Specialty Diagnoses / Procedures Referred By Contac t Referred To Contact Radiology Diagnoses Osteopenia of left forearm Procedures DXA Central Spine, Hip, and/or Whole Body (Generic) Abrahan Merlos MD [facility] HEMATOLOGY/[place] [address] [facility] Rad Xray [address] [place] [address] [place] [phone] Referral ID Status Reason Start Date Expiration Date V isits Requested Visits Authorized [id number] Closed Specialty Service Requested 12/22/2020 06/24/2022 1 1 Reason for Visit * Diagnostic Test (Routine) - Closed Specialty Diagnoses / Procedures Referred By Contac t Referred To Contact Radiology Diagnoses Osteopenia of left forearm Procedures DXA Central Spine, Hip, and/or Whole Body (Generic) Abrahan Merlos MD [facility] HEMATOLOGY/[place] [address] [facility] Rad Xray [address] [place] [address] [place] [address] Referral ID Status Reason Start Date Expiration Date V isits Requested Visits Authorized [id number] Closed Specialty Service Requested 12/22/2020 06/24/2022 1 1 Encounter Details Date Type Department Care Team (Latest Contact Info) Description 12/26/2021 9:19 AM EDT - 12/26/2021 11:59 PM EDT Hospital Encounter Mammography/DXA at [facility] [place] [address] Abrahan Merlos MD [facility] HEMATOLOGY/[place] [address] Osteopenia of left forearm Discharge [...] TABLET DAILY 90 tablet 3 07/09/2021 11/18/2023 [id number] ORAL Take 1 caplet by mouth daily. [...] daily as needed. 09/07/2022 multivit with calcium,iron,min ([id number]- MINERALS ORAL) Take by mouth. 09/07/2022 acetaminophen [...] Office [place] [phone] Paula Harris PA [facility] [place] [address] 01/26/2025 9:50 AM EDT Appointment Mammography/[place] [phone] Joan Deutsch APRN [facility] [place] [address] 01/26/2025 10:30 AM EDT Office [place] [phone] Joan Deutsch APRN [facility] [place] [address] documented as of this encounter Procedures Procedure [...] BMD measurements and plots are available in EInxero under the imaging tab. Paper copies will be sent to providers without EInxero access. If you have received this report without the data sheet and do not have access to ReactX, please contact Radiology Lumber Piler Operator at [phone] Saturday thru Saturday 8am-4pm. Thank you for letting us participate in the care of this patient. ??If you are a health care provider and have any questions regarding this report, please contact the number below. ??For patients who have questions please contact the health healthcare insurance sales agent that requested your imaging first. ? Electronically signed by: Juan Antonio bIarra MD, [facility] ([phone]), at 12/26/2021 12:42 PM Narrative 12/26/2021 12:42 PM EDT EXAMINATION: DXA CENTRAL SPINE, HIP, AND/OR WHOLE BODY (GENERIC) CLINICAL HISTORY: ??76 years Female 76 year old woman with osteopenia at the wrist and spine (as entered by ordering provider) TECHNIQUE: Scans were acquired at the lumbar spine and left forearm using the 4Tech A system. L1 and L3 were excluded from analysis due to standard deviation difference. FINDINGS: Lowest T-score at the diagnostic region of interest: T-score: -2.7, ROMÁN: One third distal radius, WHO diagnosis: osteoporosis. ......... Comparison......... Previous scan:November 2019 Total spine: Compared to the previous, 0.086 ??g/cm2 (9.9 %) increase. At [facility], least significant change for bone [...] the lumbar spine and left forearm usingthe 4Tech A system. L1 and L3 were excluded from analysis due tostandard deviation difference. FINDINGS: Lowest T-score at the diagnostic region of interest: T-score: -2.7, ROMÁN: One third distal radius, WHO diagnosis:osteoporosis. ......... Comparison......... Previous scan:November 2019 Total spine: Compared to the previous, 0.086 g/cm2 (9.9 %) increase. At [facility], least significant change for bonemineral [...] BMD measurements and plots are available in EInxerounder the imaging tab. Paper copies will be sent to providers without ReactX access.If you have received this report without the data sheet and do not haveaccess to ReactX, please contact Radiology [facility] at [phone] Saturday thruFriday 8am-4pm. Thank you for letting us participate in the care of this patient. If youare a health care provider and have any questions regarding this report,please contact the number below. For patients who have questions please contactthe health healthcare insurance sales agent that requested your imaging first. Electronically signed by: Juan Antonio Ibarra MD, [facility]([phone]), at 12/26/2021 12:42 PM Abrahan Merlos MD IMG DEXA ORDERABLES documented in this encounter Visit Diagnoses Diagnosis Osteopenia of left forearm documented in this encounter Care Teams Utility Service Worker Relationship Specialty Start Date End Date Mariluz Watts MD [address] [place] [address] PCP - General 08/22/10 documented as of this encounter
--- OUTSIDE RECORDS SUMMARY | 2024-08-11 17:09 | XMS_ITS | Encounter Summary ---
Author Organization [facility] [place] [address] Care Team Providers Care Field Gauger Name Role Phone Mariluz Watts MD Primary Care Provider [phone] Encounter Details Date Type Department Care Team (Late st Contact Info) Description 04/16/2023 1:15 PM EDT - 04/16/2023 3:30 PM EDT Surgery [place] [address] Aria Higuera MD [facility] [place] [address] ANORECTAL EXAM, REQUIRING ANESTHESIA, DIAGNOSTIC (WRVU 1.8) [...] 15 minutes 4X/day. Pain medications Please take rdvn-rgq-fekquga pain medications for post-operative discomfort.(Please continue to [...] Center 05/20/2023 2:00 PM Aria Higuera MD [facility] 07/08/2023 10:20 AM Cornell Hernández MD [facility], [place] [address] documented in this encounter Medications at Time [...] past. [facility] who diagnosed her with this (Dr. Villalba). She now currently sees Dr. De La Cruz.Has received preop TXA with prior orthopedic surgery. Patient has diagnosis of atrial fibrillation,saw cardiology at [facility], she is now [...] Operative Note Patient Name: Diamond Gaming : [id number] MR#: [id number] Case Date: 04/16/2023 Surgeon: Surgeon(s) and Role: [...] LEFT posterior hpv eD-H Order Id number [id number] SPECIMEN TO PATHOLOGY hemorrhoidectomy/hpv interior RIGHT posterior [...] Higuera MD - 04/16/2023 5:34 PM EDT [facility] Operative Note Patient Name: Diamond Gaming : [id number] MR#: [id number] Case Date: 04/16/2023 Surgeon: Surgeon(s) and Role: [...] LEFT posterior hpv eD-H Order Id number [id number] SPECIMEN TO PATHOLOGY hemorrhoidectomy/hpv interior RIGHT posterior [...] need to include opening and closing). Aria Higeura MD 04/16/2023 documented in this encounter Plan of Treatment Upcoming Encounters Date Type Department Care Team (Late st Contact Info) Description 11/16/2024 1:00 PM EST Office [place] [address] Paula Harris PA [facility] [place] [address] 01/26/2025 9:50 AM EDT Appointment Mammography/[place] [address] Joan Deutsch APRN [facility] [place] [address] 01/26/2025 10:30 AM EDT Office [place] [address] Joan Deutsch APRN [facility] [place] [address] documented as of this encounter Procedures Procedure Name Priority Date/Time Associated Diagnosis Comments SPECIMEN TO PATHOLOGY Routine 04/16/2023 6:01 PM EDT SURGICAL PATHOLOGY REPORT Routine 2022 5:47 PM EDT SPECIMEN TO PATHOLOGY Routine 04/16/2023 5:47 PM EDT Hemorrhoidectomy, Int/Ext, Simple ([id number]) 04/16/2023 5:07 PM EDT hemorrhoidectomy/ hpv Destruction Lesion Anus Simple Electrodesiccation ([id number]) 04/16/2023 5:07 PM EDT hemorrhoidectomy/ hpv Surg Diagnostic Exam, Anorectal ([id number]) 04/16/2023 5:07 PM EDT hemorrhoidectomy/ hpv documented in this encounter Results * Specimen to Pathology (04/16/2023 6:01 PM EDT) AP Specimen 04/16/2023 6:01 PM EDT 04/16/2023 6:01 PM EDT Narrative [facility] - 04/16/2023 6:01 PM EDT Specimen requisition ordered. ??Separate Pathology report to follow Aria Higuera MD PATHOLOGY/CYTOLOGY O JOSELUIS Performing Organization Address City/State/[facility] Co de Phone Number [facility] [place] [address] * Surgical Pathology Report (04/16/2023 5:47 PM EDT) Final Diagnosis [id number] ? Location: [facility]; [facility]; The signing pathologist has (i) examined the [...] MD Verified: ??04/23/2023 16:25 ??Pathologist Performed at: ??-[facility] Dept. of Pathology, [place] [id number] Quantitative Analyst: Uyen Willis MD, AP, ??CLIA Certificate: [id number] ADDITIONAL STUDIES Whole slide scan: A1 SPECIMEN(S) [...] vasculature. Sections/Processin g: Inked and serially sectioned. Basin Tender sections in 1 cassette labeled B1. ??vmj 04/23/2023 4:25 PM EDT [facility] ANAL STRUCTURE / Unknown 04/16/2023 5:47 PM EDT 04/16/2023 5:47 PM EDT ANAL STRUCTURE / Unknown 04/16/2023 5:47 PM EDT 04/16/2023 5:47 PM EDT Aria Higuera MD PATHOLOGY/CYTOLOGY O RDERABLES [facility] [place] [address] [facility] [place] [address] * Specimen to Pathology (04/16/2023 5:47 PM EDT) AP Specimen 04/16/2023 5:47 PM EDT 04/16/2023 5:47 PM EDT Narrative [facility] - 04/16/2023 5:47 PM EDT Specimen requisition ordered. ??Separate Pathology report to follow Aria Higuera MD PATHOLOGY/[place] [address] documented in this encounter Visit Diagnoses Not [...] RN) documented in this encounter Care Teams Field Gauger Relationship Specialty Start Date End Date Mariluz Watts MD [address] [facility] [address] [place] [address] PCP - General 08/22/10 documented as of this encounter
--- OUTSIDE RECORDS SUMMARY | 2024-08-11 17:10 | XMS_ITS | Encounter Summary ---
[place] [address] Care Team Providers Care Sql Report Developer Name Role Phone Mariluz Watts MD Primary Care Provider [phone] Reason for Visit * Reason Comments Post Op Encounter Details Date Type Department Care Team (Latest Contact Info) Description 04/09/2019 3:00 PM EDT Office [place] [address] Debbi Green MD [facility] [place] [address] Dermatochalasis of both upper eyelids Social History [...] PM EST Office [place] [phone] Paula Harris PA [facility] [place] [place] [address] 01/26/2025 9:50 AM EDT Appointment Mammography/[place] [address] Joan Deutsch [facility] [place] [address] 01/26/2025 10:30 AM EDT Office Visit General Surgery at [place] [phone] Joan Deutsch STORE SALES MANAGER [facility] [place] [address] documented as of this encounter Visit Diagnoses Diagnosis Dermatochalasis of both upper eyelids documented in this encounter Care Teams Sql Report Developer Relationship Specialty Start Date End Date Mariluz Watts MD [address] [place] [address] PCP - General 08/22/10 documented as of this encounter
--- OUTSIDE RECORDS SUMMARY | 2024-08-11 17:10 | XMS_ITS | Encounter Summary ---
Author Organization [facility] [place] [address] Care Team Providers Care Area Attendant Name Role Phone Mariluz Watts MD Primary Care Provider [phone] Encounter Details Date Type Department Care Team (Latest Contact Info) Description 11/23/2019 8:38 AM EST - 11/23/2019 11:59 PM [facility] Hospital Encounter XRay at [address] [place] [address] Shekhar Moody MD [facility] [place] [address] Chronic pain of both knees Discharge Disposition: [...] daily as needed. 09/07/2022 multivit with calcium,iron,min (XCZUGLGOECYH-RQ-BMRK-M INERALS ORAL) Take by mouth. 09/07/2022 omeprazole [...] EST Office Visit [place] [phone] Paula Harris PA [facility] [place] [address] 01/26/2025 9:50 AM EDT Appointment Mammography/[place] [phone] Joan Deutsch, WOOD BOAT BUILDER SUPERVISOR [facility] [place] [address] 01/26/2025 10:30 AM EDT Office Visit [place] [address] Joan Deutsch APRN [facility] [place] [address] documented as of this encounter Procedures Procedure Name Priority Date/Time Associated Diagnosis Comments XR KNEE STANDING ALIGNMENT AP LAT [place] SKYLINE BILAT Routine 11/23/2019 9:04 AM EST Chronic pain of both knees documented in this encounter Results * XR Knee Standing Alignment AP Lat [place] Bilat (11/23/2019 9:04 AM EST) Anatomical Region [...] below. ? Electronically signed by: Jesusita Nazario [facility] ([phone]), at 11/23/2019 10:54 AM Narrative 11/23/2019 10:54 [...] knees documented in this encounter Care Teams Area Attendant Relationship Specialty Start Date End Date Mariluz Watts MD [address] [place] [address] PCP - General 08/22/10 documented as of this encounter
--- OUTSIDE RECORDS SUMMARY | 2024-08-11 17:10 | XMS_ITS | Encounter Summary ---
Author Organization [facility] Address [facility] [place] [address] Care Team Providers Care Shirt Ironer Name Role Phone Mariluz Watts MD Primary Care Provider [phone] Reason for Visit * Physical Therapy (Routine) - Closed Specialty Diagnoses / Procedures Referred By John lyons Referred To Contact Physical Therapy Diagnoses OAB (overactive bladder) Bella Keenan MD [facility] [place] [address] [facility] [address] [place] [address] Referral ID Status Reason Start Date Expiration Date V isits Requested Visits Authorized [id number] Closed Evaluate and Treat 10/11/2020 10/11/2021 12 12 Encounter Details Date Type Department Care Team (Latest Contact Info) Description 11/23/2020 11:00 AM EST Office Visit Rehab PT at [facility] [address] [place] [address] Shaila Rendon PT OAB (overactive [...] (stopped as it caused HTN), PT at [facility] in [place] (helpful, but not on meds at the [...] or breath holding. 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 MET date County Manager Therapy Goals (6 months, 05/23/2021) Patient [...] PM EST Office [place] [address] Paula Harris PA [facility] [place] [address] 01/26/2025 9:50 AM EDT Appointment Mammography/[place] [address] Joan Deutsch APRN [facility] [place] [address] 01/26/2025 10:30 AM EDT Office [place] [address] Joan Deutsch APRN [facility] [place] [address] Scheduled Referrals Name Type Priority Associated Diagnoses [...] disorder documented in this encounter Care Teams Shirt Ironer Relationship Specialty Start Date End Date Mariluz Watts MD [address] [place] [address] PCP - General 08/22/10 documented as of this encounter
--- OUTSIDE RECORDS SUMMARY | 2024-08-11 17:10 | XMS_ITS | Encounter Summary ---
[place] [address] Care Team Providers Care Supervisor Channel Process Name Role Phone Mariluz Watts MD Primary Care Provider Reason for Visit * Reason Comments Follow-up discuss right foot C T scan Encounter Details Date Type Department Care Team (Late st Contact Info) Description 05/11/2019 9:00 AM EDT Office [place] [address] Shekhar Moody MD [facility] [place] [address] Arthritis of midfoot (Primary Dx) Social History [...] tear (TEARS) Drops ??? multivit with calcium,iron,min (LSFLAVVFRUKG-XJ-JYDM-MINERALS ORAL) ??? omeprazole (PRILOSEC) 20 mg Capsule, [...] Office [place] [address] Paula Harris PA [facility] [place] [address] 01/26/2025 9:50 AM EDT Appointment Mammography/[place] [address] Joan Deutsch HEAD SHIPPER [facility] [place] [address] 01/26/2025 10:30 AM EDT Office [place] [address] Joan Deutsch HEAD SHIPPER [facility] [place] [address] documented as of this encounter Visit Diagnoses Diagnosis Arthritis of midfoot- Primary Unspecified arthropathy, ankle and foot documented in this encounter Care Teams Supervisor Channel Process Relationship Specialty Start Date End Date Mariluz Watts MD [address] [place] [address] PCP - General 08/22/10 documented as of this encounter
--- OUTSIDE RECORDS SUMMARY | 2024-08-11 17:10 | XMS_ITS | Encounter Summary ---
Author Organization [facility] [place] [address] Care Team Providers Care Automatic Paint Sprayer Operator Name Role Phone Mariluz Watts MD Primary Care Provider [phone] Encounter Details Date Type Department Care Team (Latest Contact Info) Description 12/11/2019 10:42 AM EDT - 12/11/2019 11:59 PM EDT Hospital Encounter Mammography/[place] [address] Karin Webb APRN [facility] [place] [address] History of breast cancer Discharge Disposition: Home [...] daily as needed. 09/07/2022 multivit with calcium,iron,min (KFDDGTBWECEC-ZA-PZPV- MINERALS ORAL) Take by mouth. 09/07/2022 omeprazole [...] PM EST Office [place] [address] Paula Harris PA [facility] [place] [address] 01/26/2025 9:50 AM EDT Appointment Mammography/[place] [address] Joan Deutsch APRN [facility] [place] [address] 01/26/2025 10:30 AM EDT Office Visit General Surgery at [facility] [place] [address] Joan Deutsch APRN [facility] [place] [address] documented as of this encounter Procedures Procedure [...] breast documented in this encounter Care Teams Automatic Paint Sprayer Operator Relationship Specialty Start Date End Date Mariluz Watts MD [address] [place] [address] PCP - General 08/22/10 documented as of this encounter
--- OUTSIDE RECORDS SUMMARY | 2024-08-11 17:10 | XMS_ITS | Encounter Summary ---
Author Organization [facility] [address] Care Team Providers Care Health Center Manager Name Role Phone Mariluz Watts MD Primary Care Provider [phone] Reason for Referral * Diagnostic Test (Routine) - Closed Specialty Diagnoses / Procedures Referred By John lyons Referred To Contact Radiology Diagnoses Osteopenia of left forearm Procedures DXA Central Spine, Hip, and/or Whole Body (Generic) Abrahan Merlos MD [facility] DR HEMATOLOGY/[place] [address] [facility] Rad Xray [address] [place] [address] [place] [address] Referral ID Status Reason Start Date Expiration Date V isits Requested Visits Authorized [id number] Closed Specialty Service Requested 12/22/2020 06/24/2022 1 1 Reason for Visit * Reason Comments Follow-up Encounter Details Date Type Department Care Team (Late st Contact Info) Description 12/22/2020 3:00 PM EDT Office Visit Hematology and Oncology [place] [address] Abrahan Merlos MD [facility] HEMATOLOGY/[place] [address] Lydia Ceja DO [facility] HEMATOLOGY/[place] [address] Malignant neoplasm of right breast, stage 2; [...] vesicare. She is also seeing PT at [facility] and that is also helping. She takes [...] Lydia Ceja, Fellow, Hematology and Medical Oncology [facility] Pager: [phone], 12/21/20, 1:59 PM Heme-Onc Staff ?? I [...] has any concerns. ?? Abrahan Merlos MD information security in Hematology-Oncology documented in this encounter Plan of Treatment Upcoming Encounters Date Type Department Care Team (Late st Contact Info) Description 11/16/2024 1:00 PM EST Office [place] [address] Paula Harris PA [facility] [place] [address] 01/26/2025 9:50 AM EDT Appointment Mammography/[place] [address] Joan Deutsch APRN [facility] [place] [address] 01/26/2025 10:30 AM EDT Office Visit [place] [address] Joan Deutsch APRN [facility] [place] [address] documented as of this encounter Results * [...] BMD measurements and plots are available in [employer] under the imaging tab. Paper copies will be sent to providers without E- access. If you have received this report without the data sheet and do not have access to [employer], please contact Radiology [facility] at [phone] Saturday thru Saturday 8am-4pm. Thank you for letting us participate in the care of this patient. ??If you are a health care provider and have any questions regarding this report, please contact the number below. ??For patients who have questions please contact the health direct care supervisor that requested your imaging first. ? Narrative 12/26/2021 12:42 PM EDT EXAMINATION: DXA CENTRAL SPINE, HIP, AND/OR WHOLE BODY (GENERIC) CLINICAL HISTORY: ??76 years Female 76 year old woman with osteopenia at the wrist and spine (as entered by ordering provider) TECHNIQUE: Scans were acquired at the lumbar spine and left forearm using the indico A system. L1 and L3 were excluded from analysis due to standard deviation difference. FINDINGS: Lowest T-score at the diagnostic region of interest: T-score: -2.7, ROMÁN: One third distal radius, WHO diagnosis: osteoporosis. ......... Comparison......... Previous scan:November 2019 Total spine: Compared to the previous, 0.086 ??g/cm2 (9.9 %) increase. At [facility], least significant change for [...] the lumbar spine and left forearm usingthe indico A system. L1 and L3 were excluded from analysis due tostandard deviation difference. FINDINGS: Lowest T-score at the diagnostic region of interest: T-score: -2.7, ROMÁN: One third distal radius, WHO diagnosis:osteoporosis. ......... Comparison......... Previous scan:November 2019 Total spine: Compared to the previous, 0.086 g/cm2 (9.9 %) increase. At [facility], least significant change for [...] BMD measurements and plots are available in [employer]Flix[employer]under the imaging tab. Paper copies will be sent to providers without [employer] access.If you have received this report without the data sheet and do not haveaccess to [employer], please contact Radiology [facility] at [phone] Saturday thruFriday 8am-4pm. Thank you for letting us participate in the care of this patient. If youare a health care provider and have any questions regarding this report,please contact the number below. For patients who have questions please contactthe health direct care supervisor that requested your imaging first. Abrahan Merlos MD IMG DEXA ORDERABLES documented in this encounter Visit Diagnoses Diagnosis Malignant neoplasm of right breast, stage 2 Osteopenia of left forearm Osteopenia of left forearm documented in this encounter Care Teams Health Center Manager Relationship Specialty Start Date End Date Mariluz Watts MD [address] [place] [address] PCP - General 08/22/10 documented as of this encounter
--- OUTSIDE RECORDS SUMMARY | 2024-08-11 17:10 | XMS_ITS | Encounter Summary ---
[place] [address] Care Team Providers Care Application Coordinator Name Role Phone Mariluz Watts MD Primary Care Provider [phone] Encounter Details Date Type Department Care Team (Late st Contact Info) Description 12/22/2020 2:20 PM EDT Office [place] [address] Joan Deutsch APRN [facility] [address] History of breast cancer; Encounter for screening [...] carcinoma with lobular features Tumor Grade: Intermediate Irzxif-Etkvf-Mnhuwnlhkj Score: 7 Tubular Differentiation: 3 Mitotic Rate: [...] sentinel nodes: 2 (Specimen A - Right [place] node) No. positive for carcinoma: 1 (H&E) No. with IHC (+) cells only: 0 (cells not seen by H&E, see Note*) No. negative for carcinoma: 1 (both H&E and IHC For positive nodes: Largest kristi deposit 0.2 cm Extranodal extension Absent Estrogen/Progestin receptors: Performed on blocks C2 and C11 ER immunoreactivity: Positive (see Diagnostic hanna*) W[place] immunoreactivity: Positive (see Diagnostic hanna*) HER2/shonda expression [...] PM EST Office [place] [address] Paula Harris PA [facility] [place] [address] 01/26/2025 9:50 AM EDT Appointment Mammography[place] [address] Joan Deutsch APRN [facility] [address] 01/26/2025 10:30 AM EDT Office Visit General Surgery at [facility] [place] [place] [address] Joan Deutsch APRN [facility] [place] [address] documented as of this encounter Results * [...] have questions please contact the health care partner that requested your imaging first. ? Electronically signed by: Gardenia Wolf MD, [facility] ([phone]), at 12/26/2021 11:07 AM Joan Deutsch PATIENT CARRIER IMG MAMMO ORDERABLE S documented in this encounter Visit Diagnoses Diagnosis History of breast cancer Personal history of malignant neoplasm of breast Encounter for screening mammogram for breast cancer History of breast cancer Personal history of malignant neoplasm of breast Encounter for screening mammogram for breast cancer documented in this encounter Care Teams Application Coordinator Relationship Specialty Start Date End Date Mariluz Watts MD [address] [place] [address] PCP - General 08/22/10 documented as of this encounter
--- OUTSIDE RECORDS SUMMARY | 2024-08-11 17:10 | XMS_ITS | Encounter Summary ---
Author Organization [facility] [place] [address] Care Team Providers Care Refrigeration Specialist Name Role Phone Mariluz Watts MD Primary Care Provider Reason for Visit * Reason Comments Skin Check * Consultation (Routine) - Specialty Diagnoses / Procedures Referred By John lyons Referred To Contact Dermatology Diagnoses Disorder of the skin and subcutaneous tissue, unspecified subcutaneous tissue disorder Mariluz Watts MD [address] [facility] 1 [place] [address] [facility] Dermatology [address] [place] [address] Referral ID Status Reason Start Date Expiration Date V isits Requested Visits Authorized [id number] Consult, Test & Treat PCP Updated and/or Approved 05/27/2019 11/27/2019 6 6 Encounter Details Date Type Department Care Team (Late st Contact Info) Description 08/03/2019 11:00 AM EST Office Visit Dermatology at [facility] [address] [place] [address] Terry Min MD [facility] [place] [address] Seborrheic keratoses; Seborrheic keratosis, inflamed; Carlos angioma [...] daily as needed. ??? multivit with calcium,iron,min (DVLAWPMWVTLJ-MD-ANCY-MINERALS ORAL) Take by mouth. ??? omeprazole (PRILOSEC) [...] by: Terry Min MD Resident in Dermatology [facility] Patient seen and evaluated with staff credentialer: José Manuel Kelly MD Section of Dermatology [facility] * José Manuel Kelly MD - 08/03/2019 [...] withthem as documented. JOSÉ MANUEL KELLY MD [facility] Staff Physician documented in this encounter Plan of Treatment Upcoming Encounters Date Type Department Care Team (Late st Contact Info) Description 11/16/2024 1:00 PM EST Office Visit [place] [address] Paula Harris PA [facility] [place] [address] 01/26/2025 9:50 AM EDT Appointment Mammography/DXA at [place] [phone] Joan Deutsch, GE [facility] [place] [address] 01/26/2025 10:30 AM EDT Office Visit General Surgery at [place] [phone] Joan Deutsch, GE [facility] [place] [address] documented as of this encounter Visit Diagnoses Diagnosis Seborrheic keratoses Other seborrheic keratosis Seborrheic keratosis, inflamed Inflamed seborrheic keratosis Carlos angioma Nevus, non-neoplastic documented in this encounter Care Teams Refrigeration Specialist Relationship Specialty Start Date End Date Mariluz Watts MD [address] [place] [address] [facility] 1 [place] [address] PCP - General 08/22/10 documented as of this encounter
--- OUTSIDE RECORDS SUMMARY | 2024-08-11 17:10 | XMS_ITS | Encounter Summary ---
Author Organization [facility] [place] [address] Care Team Providers Care Drywall Worker Name Role Phone Mariluz Watts MD Primary Care Provider [phone] Reason for Visit * Reason Onset Date Comments Pre Procedure Call 11/23/2019 Encounter Details Date Type Department Care Team (Late st Contact Info) Description 11/23/2019 [place] [address] Shekhar Moody MD [facility] DR [place] [address] Pre Procedure Call Social History Tobacco Use [...] left a message for patient to call [phone] directly and schedule surgery with Dr. moody. documented in this encounter Plan of Treatment Upcoming Encounters Date Type Department Care Team (Late st Contact Info) Description 11/16/2024 1:00 PM EST Office [place] [address] Paula Harris PA [facility] [place] [address] 01/26/2025 9:50 AM EDT Appointment Mammography/DXA at [place] [phone] Joan Deutsch [facility] [place] [address] 01/26/2025 10:30 AM EDT Office [place] [address] Joan Deutsch OPERATIONS DISPATCHER [facility] [place] [address] documented as of this encounter Visit Diagnoses Not on filedocumented in this encounter Care Teams Drywall Worker Relationship Specialty Start Date End Date Mariluz Watts MD [address] [place] [address] PCP - General 08/22/10 documented as of this encounter
--- OUTSIDE RECORDS SUMMARY | 2024-08-11 17:10 | XMS_ITS | Encounter Summary ---
[place] [address] Care Team Providers Care Corn Lab Technician Name Role Phone Mariluz Watts MD Primary Care Provider [phone] Reason for Visit * Reason Onset Date Comments Labs Only 12/02/2018 labs only Encounter Details Date Type Department Care Team (Late st Contact Info) Description 12/02/2018 Telephone Hematology [place] [address] Marlys Kolb RN Labs Only (labs only) [...] having difficulty accessing the results in her [facility] account. Pt's callback: [phone], confidential voicemail (ok to leave message with numbers for lab results) T/C to Patient: Left message on VM with labs Plan: Left message with instruction to call back with any questions documented in this encounter Plan of Treatment Upcoming Encounters Date Type Department Care Team (Late st Contact Info) Description 11/16/2024 1:00 PM EST Office [place] [phone] Paula Harris PA [facility] [place] [address] 01/26/2025 9:50 AM EDT Appointment Mammography/DXA at [place] [phone] Joan Deutsch [facility] [place] [address] 01/26/2025 10:30 AM EDT Office [place] [address] Joan Deutsch [facility] [place] [address] documented as of this encounter Visit Diagnoses Not on filedocumented in this encounter Care Teams Corn Lab Technician Relationship Specialty Start Date End Date Mariluz Watts MD [address] [place] [address] PCP - General 08/22/10 documented as of this encounter
--- OUTSIDE RECORDS SUMMARY | 2024-08-11 17:10 | XMS_ITS | Encounter Summary ---
[place] [address] Care Team Providers Care Kickboxing Instructor Name Role Phone Mariluz Watts MD Primary Care Provider Encounter Details Date Type Department Care Team (Late st Contact Info) Description 03/27/2019 3:07 PM EDT - 03/27/2019 4:01 PM EDT Surgery [place] [address] Debbi Green MD [facility] [place] [address] BLEPHAROPLASTY,UPPER EYELID, WITH EXCESSIVE SKIN, ANDRES (WRVU [...] the ointment in the eye or an qjdw-syr-kvnghnk artificial tear drop. Your bruising and swelling [...] Green immediately. She may be reached at [phone]: PLEASE DO NOT HESITATE TO CALL IF YOU ARE HAVING A PROBLEM!! There is always a doctor ultrasonic cleaner at the eye clinic. documented in this [...] daily as needed. 09/07/2022 multivit with calcium,iron,min (SKJYMAQZJCLO-KS-WURX-M INERALS ORAL) Take by mouth. 09/07/2022 omeprazole [...] - 03/27/2019 2:09 PM EDT [facility] [place] Note Patient Name: Diamond Gaming : [id number] MR#: [id number] Case Date: 03/27/2019 Surgeon: Surgeon(s) and Role: [...] Office [place] [phone] Paula Harris PA [facility] [place] [address] 01/26/2025 9:50 AM EDT Appointment Mammography/[place] [phone] Joan Deutsch APRN [facility] GENERAL [place] [address] 01/26/2025 10:30 AM EDT Office Visit General Surgery at [facility] [place] [address] Joan Deutsch APRN [facility] [place] [address] documented as of this encounter Procedures Procedure [...] local.) documented in this encounter Care Teams Kickboxing Instructor Relationship Specialty Start Date End Date Mariluz Watts MD [address] [place], [place] [address]Y [address] [place] [address] PCP - General 08/22/10 documented as of this encounter
--- OUTSIDE RECORDS SUMMARY | 2024-08-11 17:10 | XMS_ITS | Encounter Summary ---
[place] [address] Care Team Providers Care Painter Rough Name Role Phone Mariluz Watts MD Primary Care Provider [phone] Encounter Details Date Type Department Care Team (Latest Contact Info) Description 03/12/2019 9:29 AM EDT - 03/12/2019 11:59 PM EDT Hospital Encounter Hematology [place] [address] Iron deficiency anemia, unspecified iron deficiency anemia [...] daily as needed. 09/07/2022 multivit with calcium,iron,min (JQIKASDXWJBL-ND-QDLG-M INERALS ORAL) Take by mouth. 09/07/2022 omeprazole [...] PM EST Office [place] [phone] Paula Harris PA [facility] [place] [address] 01/26/2025 9:50 AM EDT Appointment Mammography/[place] [address] Joan Deutsch APRN [facility] [place] [address] 01/26/2025 10:30 AM EDT Office [place] [phone] Joan Deutsch, GE [facility] [place] [address] documented as of this encounter Procedures Procedure Name Priority Date/Time Associated Diagnosis Comments HEMOGRAM Routine 03/12/2019 9:45 AM EDT Iron deficiency anemia, unspecified iron deficiency anemia type FERRITIN Routine 03/12/2019 9:45 AM EDT Iron deficiency anemia, unspecified iron deficiency anemia type documented in this encounter Results * Hemogram (03/12/2019 9:45 AM EDT) White Blood Cell 5.7 4.0 - 9.5 x10(3)/[facility] LABORATORY Red Blood Cell 5.16 4.00 - 5.21 x10(6)/[facility] LABORATORY Hemoglobin 14.6 11.7 - 15.5 gm/dL [facility] Hematocrit 45.8 35.7 - 45.8 % [facility] Mean Cell Volume 88.8 82.6 - 94.4 [facility] LABORATORY Mean Cell Hemoglobin 28.3 27.1 - 32.0 pg [facility] Mean Cell Hemoglobin Concentration 31.9 31.7 - 35.0 gm/dL [facility] Platelet 228 145 - 357 x10(3)/[facility] LABORATORY RDW Standard Deviation 44.1 37.0 - 46.0 [facility] LABORATORY RDW coefficient of variation 13.6 11.5 - 14.1 % [facility] Mean Platelet Volume 11.1 7.6 - 12.9 [facility] LABORATORY NRBC% auto 0.0 % [facility] NRBC Absolute 0.000 0.000 - 0.000 x10(3)/[facility] LABORATORY Blood specimen (specimen) 03/12/2019 9:45 AM EDT 03/12/2019 9:50 AM EDT Narrative Resulting Agency Comment Spec In Lab Charity De La Cruz MD HEMATOLOGY ORDERAB LES Performing Organization Address City/[facility]/ZIP Co de Phone Number [facility] [place] [address] * Ferritin (03/12/2019 9:45 AM EDT) Ferritin 83 30 - 400 ng/mL [facility] Comment: Pediatric reference ranges not verified at [facility], interpret with caution. Reference ranges for females greater than 50 years of age approach values for men, i.e., 30-400 ng/mL. Blood specimen (specimen) 03/12/2019 9:45 AM EDT 03/12/2019 9:50 AM EDT Narrative Resulting Agency Comment Spec In Lab Charity De La Cruz MD CHEMISTRY ORDERABL ES Performing Organization Address [facility] Co de Phone Number [facility] [place] [address] documented in this encounter Visit Diagnoses Diagnosis Iron deficiency anemia, unspecified iron deficiency anemia type documented in this encounter Care Teams Painter Rough Relationship Specialty Start Date End Date Mariluz Watts MD [address] [place] [address] PCP - General 08/22/10 documented as of this encounter
--- OUTSIDE RECORDS SUMMARY | 2024-08-11 17:10 | XMS_ITS | Encounter Summary ---
Author Organization [facility] [place] [address] Care Team Providers Care State Pilot Name Role Phone Mariluz Watts MD Primary Care Provider [phone] Encounter Details Date Type Department Care Team (Latest Contact Info) Description 12/22/2020 12:47 PM EDT - 12/22/2020 11:59 PM EDT Hospital Encounter Mammography/[place] [address] Joan Deutsch, SUPERIOR COURT JUDGE [facility] [place] [address] History of breast cancer Discharge Disposition: Home [...] Take 4 mg by mouth daily. 01/15/2023 EYDFIIL-PMOTGHPWO-CQHF ORAL Take 1 caplet by mouth daily. [...] daily as needed. 09/07/2022 multivit with calcium,iron,min (FNETVTMQJDHX-BU-ZZVK- MINERALS ORAL) Take by mouth. 09/07/2022 acetaminophen [...] PM EST Office Visit [place] [address] Paula Harris PA [facility] [place] [address] 01/26/2025 9:50 AM EDT Appointment Mammography/[place] [address] Joan Deutsch APRN [facility] [place] [address] 01/26/2025 10:30 AM EDT Office Visit [place] [address] JUDGE [facility] [place] [address] documented as of this encounter Procedures Procedure [...] ? Electronically signed by: Beata Narayan MD, [facility] ([phone]), at 12/22/2020 5:41 PM Joan Deutsch SUPERIOR COURT JUDGE IMG MAMMO ORDERABLE S documented in this encounter Visit Diagnoses Diagnosis History of breast cancer Personal history of malignant neoplasm of breast documented in this encounter Care Teams State Pilot Relationship Specialty Start Date End Date Mariluz Watts MD [address] [place] [address] PCP - General 08/22/10 documented as of this encounter
--- OUTSIDE RECORDS SUMMARY | 2024-08-11 17:10 | XMS_ITS | Encounter Summary ---
Author Organization [facility] Address [facility] [place] [address] Care Team Providers Care Lpn Private Duty Name Role Phone Mariluz Watts MD Primary Care Provider [phone] Reason for Visit * Physical Therapy (Routine) - Closed Specialty Diagnoses / Procedures Referred By John lyons Referred To Contact Physical Therapy Diagnoses OAB (overactive bladder) Bella Keenan MD [facility] [place] [address] [facility] [address] [place] [address] Referral ID Status Reason Start Date Expiration Date V isits Requested Visits Authorized [id number] Closed Evaluate and Treat 10/11/2020 10/11/2021 12 12 Encounter Details Date Type Department Care Team (Latest Contact Info) Description 12/08/2020 11:00 AM EST Office Visit Rehab PT at [facility] [address] [place] [address] Shaila Rendon PT OAB (overactive [...] surgery a month ago, now in regular [facility] [place]. Was able to walk around [...] LE, ?? []? Strengthening []?TrA Set, with []?[facility] TrA level []? ?? Self-care/Trainin min [...] holding. ?? 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 ? MET date Half-Way Therapy Goals (6 months, 05/23/2021) 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... [...] PM EST Office Visit [place] [address] Paula Harris PA [facility] [place] [address] 01/26/2025 9:50 AM EDT Appointment Mammography/[place] [address] Joan Deutsch APRN [facility] [place] [address] 01/26/2025 10:30 AM EDT Office Visit [place] [address] Joan Deutsch [facility] [place] [address] documented as of this encounter Visit Diagnoses [...] disorder documented in this encounter Care Teams Lpn Private Duty Relationship Specialty Start Date End Date Mariluz Watts MD [address] [place] [address] PCP - General 08/22/10 documented as of this encounter
--- OUTSIDE RECORDS SUMMARY | 2024-08-11 17:10 | XMS_ITS | Encounter Summary ---
[place] [address] Care Team Providers Care Heel Shaver Name Role Phone Mariluz Watts MD Primary Care Provider Reason for Visit * Reason Comments Ptosis * Consultation (Routine) - Closed Specialty Diagnoses / Procedures Referred By John lyons Referred To Contact Ophthalmology Diagnoses eyelid disorder/needs a visual field done Mariluz Watts MD [address] [place] [address] Debbi Green MD [facility] [place] [address] Referral ID Status Reason Start Date Expiration Date V isits Requested Visits Authorized [id number] Closed Consult, Test & Treat 02/09/2019 02/09/2020 1 1 Encounter Details Date Type Department Care Team (Latest Contact Info) Description 02/11/2019 7:30 AM EDT Office Visit [place] [address] Debbi Green MD [facility] [place] [place] [address] Dermatochalasis of both upper eyelids Social History [...] PM EST Office Visit [place] [address] Paula Harris PA [facility] [place] [address] 01/26/2025 9:50 AM EDT Appointment Mammography/DXA at [facility] [place] [address] Joan Deutsch, [facility] [place] [address] 01/26/2025 10:30 AM EDT Office Visit General Surgery at [facility] [place] [address] Joan Deutsch, [facility] DR [facility]Z SUR[facility] [place] [address] documented as of this encounter Procedures Procedure [...] eyelids documented in this encounter Care Teams Heel Shaver Relationship Specialty Start Date End Date Mariluz Watts MD [address] [place] [address] PCP - General 08/22/10 documented as of this encounter
--- OUTSIDE RECORDS SUMMARY | 2024-08-11 17:10 | XMS_ITS | Encounter Summary ---
Author Organization [facility] [place] [address] Care Team Providers Care Merchandise Carrier Name Role Phone Mariluz Watts MD Primary Care Provider [phone] Reason for Visit * Reason Comments Skin Check Encounter Details Date Type Department Care Team (Late st Contact Info) Description 08/04/2020 11:00 AM EST Office Visit Dermatology at [facility] [address] [place] [address] Terry Min MD [facility] [place] [address] Neoplasm of uncertain behavior of skin; Inflamed [...] or concerns, please call the office at [phone]. If it is after 5PM, or a holiday or weekend, please call [phone] and ask for the Claims Adjustor on-call. documented in this encounter Progress Notes [...] frozen with LN2. Lesion on the left holiness that patient noticed a couple months ago. [...] daily as needed. ??? multivit with calcium,iron,min (OQSODRUOGHUK-HS-ZDET-MINERALS ORAL) Take by mouth. ??? omeprazole (PRILOSEC) [...] patient's lesion of concern on the left holiness -pt reassured -advised the pt to monitor [...] by Terry Min MD Department of Dermatology [facility] documented in this encounter Plan of Treatment Upcoming Encounters Date Type Department Care Team (Late st Contact Info) Description 11/16/2024 1:00 PM EST Office [place] [address] Paula Harris PA [facility] [place] [address] 01/26/2025 9:50 AM EDT Appointment Mammography/[place] [address] Joan Deutsch APRN [facility] [place] [address] 01/26/2025 10:30 AM EDT Office [place] [address] Joan Deutsch APRN [facility] [place] [address] documented as of this encounter Procedures Procedure [...] Lab Terry Min MD PATHOLOGY/CYTOLOGY O RDERALIANA [facility] [place] [address] * Surgical Pathology Report (08/04/2020 11:09 AM EST) Final Diagnosis [id number] ? Location: HDM The signing pathologist has (i) examined the relevant preparation(s) for the specimen(s) and (ii) rendered or confirmed the diagnosis(es). . ?Surgical Pathology DIAGNOSIS Central upper back, skin shave biopsy: - ??Lichenoid keratosis , multiple deeper levels examined Electronically signed by: ??Mike STEINER, PhD, Afshan Verified: ??08/10/2020 ?Dermatopathol ogist Performed at: ??-[facility] Dept. of [facility]ology, [place], [place] SPECIMEN(S) SUBMITTED A - Central upper [...] EST Terry Min MD PATHOLOGY/CYTOLOGY O JOSELUIS [facility] [place] [address] documented in this encounter Visit Diagnoses Diagnosis Neoplasm of uncertain behavior of skin Inflamed seborrheic keratosis Multiple benign nevi Benign neoplasm of skin, site unspecified Folliculitis Other specified disease of hair and hair follicles documented in this encounter Care Teams Merchandise Carrier Relationship Specialty Start Date End Date Mariluz Watts MD [address] [facility] 1 [place] [address] PCP - General 08/22/10 documented as of this encounter
--- OUTSIDE RECORDS SUMMARY | 2024-08-11 17:10 | XMS_ITS | Encounter Summary ---
[place] [address] Care Team Providers Care Roll Cleaner Name Role Phone Mariluz Watts MD Primary Care Provider [phone] Encounter Details Date Type Department Care Team (Latest Contact Info) Description 03/27/2019 1:45 PM EDT - 03/27/2019 3:30 PM EDT Hospital Encounter [place] [address] Debbi Green MD [facility] [place] [address] Discharge Disposition: Home Social History Tobacco Use [...] the ointment in the eye or an rnje-nsu-wiphxrr artificial tear drop. Your bruising and swelling [...] Green immediately. She may be reached at [phone]: PLEASE DO NOT HESITATE TO CALL IF YOU ARE HAVING A PROBLEM!! There is always a doctor production coordinator at the eye clinic. documented in this [...] daily as needed. 09/07/2022 multivit with calcium,iron,min (RXIVRXFKACOE-UF-KSJP-M INERALS ORAL) Take by mouth. 09/07/2022 omeprazole [...] Green MD - 03/27/2019 2:09 PM EDT [facility] Operative Note Patient Name: Diamond Gaming : [id number] MR#: [id number] Case Date: 03/27/2019 Surgeon: Surgeon(s) and Role: [...] PM EST Office Visit [place] [address] Paula Harris PA [facility] [place] [address] 01/26/2025 9:50 AM EDT Appointment Mammography/[place] [address] Joan Deutsch, GE [facility] [place] [address] 01/26/2025 10:30 AM EDT Office Visit General Surgery at [facility] [place] [address] Joan Deutsch TOLL COLLECTOR [facility] [place] [address] documented as of this encounter Procedures Procedure [...] local.) documented in this encounter Care Teams Roll Cleaner Relationship Specialty Start Date End Date Mariluz Watts MD [address] [place] [address] PCP - General 08/22/10 documented as of this encounter
--- OUTSIDE RECORDS SUMMARY | 2024-08-11 17:10 | XMS_ITS | Encounter Summary ---
[place] [address] Care Team Providers Care Pyrotechnic Assembler Name Role Phone Mariluz Watts MD Primary Care Provider [phone] Encounter Details Date Type Department Care Team (Late st Contact Info) Description 05/21/2019 Telephone Hematology [place] [phone] Maricarmen Martins, RN Social History Tobacco Use [...] is still waiting on lab results from [facility] in [place] that were drawn. Would you mind giving her a call at home at [phone]? Thanks for your time, December...again documented in this encounter Plan of Treatment Upcoming Encounters Date Type Department Care Team (Late st Contact Info) Description 11/16/2024 1:00 PM EST Office [place] [address] Paula Harris PA [facility] [place] [address] 01/26/2025 9:50 AM EDT Appointment Mammography/[place] [address] Joan Deutsch [facility] [place] [address] 01/26/2025 10:30 AM EDT Office [place] [phone] Joan Deutsch RENTAL CLERK [facility] [place] [address] documented as of this encounter Visit Diagnoses Not on filedocumented in this encounter Care Teams Pyrotechnic Assembler Relationship Specialty Start Date End Date Mariluz Watts MD [address] [place] [address] [address] [place] [address] PCP - General 08/22/10 documented as of this encounter
--- OUTSIDE RECORDS SUMMARY | 2024-08-11 17:10 | XMS_ITS | Encounter Summary ---
[place] [address] Care Team Providers Care Hair Specialist Name Role Phone Mariluz Watts MD Primary Care Provider Reason for Referral * Diagnostic Test (Routine) - Closed Specialty Diagnoses / Procedures Referred By John lyons Referred To Contact Radiology Diagnoses Primary osteoarthritis of right foot Procedures CT Foot wo Contrast Right (Generic) Daylin Waldrop PA [facility] DR ORTHOP[place] [address] [facility] [place] [address] Referral ID Status Reason Start Date Expiration Date V isits Requested Visits Authorized [id number] Closed Specialty Service Requested 03/10/2019 03/09/2020 1 1 Reason for Visit * Reason Comments Follow-up right foot pain - di scuss surgery Encounter Details Date Type Department Care Team (Latest Contact Info) Description 03/10/2019 3:30 PM EDT Office [place] [address] Primary osteoarthritis of right foot Social History [...] NAME: Diamond Gaming AGE: 73 y.o. MR#: [id number] DATE OF VISIT: 03/10/2019 CHIEF COMPLAINT: FU [...] tear (TEARS) Drops ??? multivit with calcium,iron,min ([id number]-FGIU-MINERALS ORAL) ??? omeprazole (PRILOSEC) 20 mg Capsule, [...] EST Office Visit [place] [address] Paula Harris PA [facility] [place] [address] 01/26/2025 9:50 AM EDT Appointment Mammography/[place] [address] Joan Deutsch, INTERNAL MEDICINE DOCTOR [facility] [place] [address] 01/26/2025 10:30 AM EDT Office Visit [place] [address] Joan Deutsch, INTERNAL MEDICINE DOCTOR [facility] [place] [address] documented as of this encounter Results * [...] Electronically signed by: Marly Torres [facility] ([phone]), at 03/19/2019 9:47 AM Narrative 03/19/2019 9:47 [...] contact the number below. 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
--- OUTSIDE RECORDS SUMMARY | 2024-08-11 17:10 | XMS_ITS | Encounter Summary ---
Author Organization On License [facility] Address [facility] [place] [address] Care Team Providers Care Pattern Clerk Name Role Phone Mariluz Watts MD Primary Care Provider [phone] Reason for Referral * Physical Therapy (Routine) - Closed Specialty Diagnoses / Procedures Referred By Contanthony t Referred To Contact Physical Therapy Diagnoses OAB (overactive bladder) Bella Keenan MD [facility] [place] [address] [facility] [address] [place] [address] Referral ID Status Reason Start Date Expiration Date V isits Requested Visits Authorized [id number] Closed Evaluate and Treat 10/11/2020 10/11/2021 12 12 Reason for Visit * Consultation (Routine) - Closed Specialty Diagnoses / Procedures Referred By Contac t Referred To Contact Urology Diagnoses Other specified disorders of bladder BLADDER IRRITABILITY *Female Provider* Mariluz Watts MD [address] [place] [address] [address] [place] [address] [facility] [place] [address] Referral ID Status Reason Start Date Expiration Date V isits Requested Visits Authorized [id number] Closed Consult, Test & Treat 07/29/2020 07/29/2021 1 1 Encounter Details Date Type Department Care Team (Late st Contact Info) Description 10/11/2020 3:40 PM EST Office [place] [address] Bella Keenan MD [facility] [place] [address] OAB (overactive bladder) Social History [...] more information on better bladder control visit: [email or web address] People with overactive bladder (OAB) may experience [...] the full effects of your efforts. 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 [...] hypermobility syndrome ??? GI bleeding 03/25/2011 ??? 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 Motion [...] EST Office Visit [place] [address] Paula Harris, PA [facility] [place] [address] 01/26/2025 9:50 AM EDT Appointment Mammography/[place] [phone] Joan Deutsch, [facility] [place] [address] 01/26/2025 10:30 AM EDT Office [place] [phone] Joan Deutsch, PRUNER [facility] [place] [address] Scheduled Referrals Name Type Priority Associated Diagnoses Orde r Schedule Referral to Physical Therapy Outpatient Referral Routine OAB (overactive bladder) Ordered: 10/11/2020 documented as of this encounter Visit Diagnoses Diagnosis OAB (overactive bladder) Hypertonicity of bladder documented in this encounter Care Teams Pattern Clerk Relationship Specialty Start Date End Date Mariluz Watts MD [address] [place] [address] PCP - General 08/22/10 documented as of this encounter
--- OUTSIDE RECORDS SUMMARY | 2024-08-11 17:10 | XMS_ITS | Encounter Summary ---
Author Organization [facility] [place] [address] Care Team Providers Care Lurer Name Role Phone Mariluz Watts MD Primary Care Provider [phone] Encounter Details Date Type Department Care Team (Late st Contact Info) Description 03/10/2019 Telephone [place] [address] Daylin Waldrop PA [facility] DR [place] [address] Social History Tobacco Use Types Packs/Day Years [...] PM EST Office Visit [place] [address] Paula Harris PA [facility] [place] [address] 01/26/2025 9:50 AM EDT Appointment Mammography/DXA at [place] [phone] Joan Deutsch, NETWORK SYSTEMS ADMINISTRATOR [facility] [place] [address] 01/26/2025 10:30 AM EDT Office Visit [place] [address] Joan Deutsch, NETWORK SYSTEMS ADMINISTRATOR [facility] [place] [address] documented as of this encounter Visit Diagnoses Not on filedocumented in this encounter Care Teams Lurer Relationship Specialty Start Date End Date Marilzu Watts MD [address] [facility] [address] [place] [address] PCP - General 08/22/10 documented as of this encounter
--- OUTSIDE RECORDS SUMMARY | 2024-08-11 17:10 | XMS_ITS | Encounter Summary ---
[place] [address] Care Team Providers Care Customer Care Voice Consultant Name Role Phone Mariluz Watts MD Primary Care Provider [phone] Reason for Visit * Reason Comments Follow-up XR, bilat TKA surgic al consult Encounter Details Date Type Department Care Team (Latest Contact Info) Description 11/23/2019 9:40 AM EST Office [place] [address] Shekhar Moody MD [facility] [place] [address] Primary osteoarthritis of left knee (Primary Dx); [...] tear (TEARS) Drops ??? multivit with calcium,iron,min ([id number]-VI-KPDE-MINERALS ORAL) ??? omeprazole (PRILOSEC) 20 mg Capsule, [...] more recently in [facility] Enjoys reading Has a dog, which she enjoys walking Lives with her son in [facility] Social History Tobacco Use ??? [...] Office [place] [address] Paula Harris PA [facility] [place] [address] 01/26/2025 9:50 AM EDT Appointment Mammography/[place] [address] Joan Deutsch APRN [facility] [place] [address] 01/26/2025 10:30 AM EDT Office [place] [address] Joan Deutsch APRN [facility] [place] [place] [address] documented as of this encounter Visit Diagnoses Diagnosis Primary osteoarthritis of left knee- Primary Primary localized osteoarthrosis, lower leg Need for prophylactic chemotherapy Need for other prophylactic chemotherapy Pain in extremity, unspecified extremity documented in this encounter Care Teams Customer Care Voice Consultant Relationship Specialty Start Date End Date Mariluz Watts MD [address] [place] [address] PCP - General 08/22/10 documented as of this encounter
--- OUTSIDE RECORDS SUMMARY | 2024-08-11 17:10 | XMS_ITS | Encounter Summary ---
[place] [address] Care Team Providers Care Manager Systems Name Role Phone Mariluz Watts MD Primary Care Provider [phone] Reason for Referral * Diagnostic Test (Routine) - Closed Specialty Diagnoses / Procedures Referred By Contac t Referred To Contact Radiology Diagnoses Primary osteoarthritis of right foot Procedures CT Foot wo Contrast Right (Generic) Daylin Waldrop PA [facility] [place] [address] [facility] [place] [address] Referral ID Status Reason Start Date Expiration Date V isits Requested Visits Authorized [id number] Closed Specialty Service Requested 03/10/2019 03/09/2020 1 1 Reason for Visit * Diagnostic Test (Routine) - Closed Specialty Diagnoses / Procedures Referred By Contac t Referred To Contact Radiology Diagnoses Primary osteoarthritis of right foot Procedures CT Foot wo Contrast Right (Generic) Daylin Waldrop PA [facility] [place] [address] [facility] [place] [address] Referral ID Status Reason Start Date Expiration Date V isits Requested Visits Authorized [id number] Closed Specialty Service Requested 03/10/2019 03/09/2020 1 1 Encounter Details Date Type Department Care Team (Latest Contact Info) Description 03/19/2019 8:31 AM EDT - 03/19/2019 11:59 PM EDT Hospital Encounter CT Scan at [facility] [place] [address] Shekhar Moody MD [facility] DR [place] [address] Primary osteoarthritis of right foot [...] daily as needed. 09/07/2022 multivit with calcium,iron,min ([id number]-WEJN-M INERALS ORAL) Take by mouth. 09/07/2022 omeprazole [...] PM EST Office [place] [address] Paula Harris PA [facility] [place] [place] [address] 01/26/2025 9:50 AM EDT Appointment Mammography/[place] [phone] Joan Deutsch APRN [facility] [place] [address] 01/26/2025 10:30 AM EDT Office [place] [address] Joan Deutsch APRN [facility] [place] [address] documented as of this encounter Procedures Procedure [...] below. ? Electronically signed by: Marly Torres [facility] ([phone]), at 03/19/2019 9:47 AM Narrative 03/19/2019 9:47 [...] number below. Electronically signed by: Marly Torres [facility]([phone]), at 03/19/2019 9:47 AM Shekhar Moody MD IMG CT ORDERABLES documented in this encounter Visit Diagnoses Diagnosis Primary osteoarthritis of right foot documented in this encounter Care Teams Manager Systems Relationship Specialty Start Date End Date Mariluz Watts MD [address] [place] [address] PCP - General 08/22/10 documented as of this encounter
--- OUTSIDE RECORDS SUMMARY | 2024-08-11 17:10 | XMS_ITS | Encounter Summary ---
[place] [address] Care Team Providers Care Vending Technician Name Role Phone Mariluz Watts MD Primary Care Provider [phone] Encounter Details Date Type Department Care Team (Late st Contact Info) Description 12/11/2019 1:30 PM EDT Office Visit Hematology [place] [address] Abrahan Merlos MD [facility] HEMATOLOGY/[place] [address] Thumb pain, left; Malignant neoplasm of right [...] with her next mammograms. Abrahan Merlos MD marketing operations intern in Hematology-Oncology documented in this encounter Plan of Treatment Upcoming Encounters Date Type Department Care Team (Late st Contact Info) Description 11/16/2024 1:00 PM EST Office Visit General Surgery at [place] [phone] Paula Harris, [place] [facility] [place] [address] 01/26/2025 9:50 AM EDT Appointment Mammography/[place] [address] Joan Deutsch, GE [facility] [place] [address] 01/26/2025 10:30 AM EDT Office Visit General Surgery at [place] [phone] Joan Deutsch, GE [facility] [place] [address] documented as of this encounter Visit Diagnoses Diagnosis Thumb pain, left Malignant neoplasm of right breast, stage 2 documented in this encounter Care Teams Vending Technician Relationship Specialty Start Date End Date Mariluz Watts MD [address] [place] [address] PCP - General 08/22/10 documented as of this encounter
--- OUTSIDE RECORDS SUMMARY | 2024-08-11 17:10 | XMS_ITS | Encounter Summary ---
[place] [address] Care Team Providers Care Pattern Keeper Name Role Phone Mariluz Watts MD Primary Care Provider Encounter Details Date Type Department Care Team (Late st Contact Info) Description 10/04/2020 [place] [address] Emily Crowley LNA Social History Tobacco Use [...] PM EST Office [place] [address] Paula Harris PA [facility] [place] [address] 01/26/2025 9:50 AM EDT Appointment Mammography/DXA at [place] [phone] Joan Deutsch, [facility] [place] [address] 01/26/2025 10:30 AM EDT Office [place] [address] Joan Deutsch, [facility] [place] [address] documented as of this encounter Visit Diagnoses Not on filedocumented in this encounter Care Teams Pattern Keeper Relationship Specialty Start Date End Date Mariluz Watts MD [address] [facility] [address] [place] [address] PCP - General 08/22/10 documented as of this encounter
--- OUTSIDE RECORDS SUMMARY | 2024-08-11 17:10 | XMS_ITS | Encounter Summary ---
Author Organization [facility] [place] [address] Care Team Providers Care Vascular Neurologist Name Role Phone Mariluz Watts MD Primary Care Provider [phone] Reason for Referral * Diagnostic Test (Routine) - Closed Specialty Diagnoses / Procedures Referred By Contac t Referred To Contact Radiology Diagnoses Osteopenia of multiple sites Procedures DXA Central-Spine, Hip, And/Or Whole Body (Generic) Abrahan Merlos MD [facility] HEMATOLOGY/[place] [address] [facility] Rad Xray [address] [place] [address] [place] [address] Referral ID Status Reason Start Date Expiration Date V isits Requested Visits Authorized [id number] Closed Specialty Service Requested 12/26/2018 12/26/2019 1 1 Reason for Visit * Diagnostic Test (Routine) - Closed Specialty Diagnoses / Procedures Referred By Contac t Referred To Contact Radiology Diagnoses Osteopenia of multiple sites Procedures DXA Central-Spine, Hip, And/Or Whole Body (Generic) Abrahan Merlos MD [facility] HEMATOLOGY/[place] [address] [facility] Rad Xray [address] [place] [address] [place] [address] Referral ID Status Reason Start Date Expiration Date V isits Requested Visits Authorized [id number] Closed Specialty Service Requested 12/26/2018 12/26/2019 1 1 Encounter Details Date Type Department Care Team (Latest Contact Info) Description 12/11/2019 10:41 AM EDT Hospital Encounter XRay at [address] [place] [address] Abrahan Merlos MD [facility] HEMATOLOGY/[place] [address] Osteopenia of multiple sites Discharge [...] daily as needed. 09/07/2022 multivit with calcium,iron,min ([id number]-QF-TUCF-M INERALS ORAL) Take by mouth. 09/07/2022 omeprazole [...] PM EST Office [place] [address] Paula Harris PA [facility] [place] [address] 01/26/2025 9:50 AM EDT Appointment Mammography[place] [address] Joan Deutsch APRN [facility] [place] [address] 01/26/2025 10:30 AM EDT Office [place] [address] Joan Deutsch APRN [facility] [place] [address] documented as of this encounter Procedures Procedure [...] BMD measurements and plots are available in [employer] under the imaging tab. Paper copies will be sent to providers without E- access. If you have received this report without the data sheet and do not have access to [employer], please contact Radiology Construction Scheduler at [phone] Saturday thru Saturday 8am-4pm. Thank you for [...] baseline, 0.042 g/cm2 (4.6 %) decrease. At [facility], least significant change for bone mineral density [...] baseline, 0.042 g/cm2 (4.6 %) decrease. At [facility], least significant change for bonemineral density measurements [...] BMD measurements and plots are available in [employer]under the imaging tab. Paper copies will be sent to providers without Y[employer] access.If you have received this report without the data sheet and do not haveaccess to [employer], please contact Radiology Construction Scheduler at [phone] Saturday thruFriday 8am-4pm. Thank you for letting us participate in the care of this patient. Forquestions regarding this report, please contact the number below. Abrahan Merlos MD IMG DEXA ORDERABLES documented in this encounter Visit Diagnoses Diagnosis Osteopenia of multiple sites documented in this encounter Care Teams Vascular Neurologist Relationship Specialty Start Date End Date Mariluz Watts MD [address] [facility] [address] [place] [address] PCP - General 08/22/10 documented as of this encounter
--- OUTSIDE RECORDS SUMMARY | 2024-08-11 17:10 | XMS_ITS | Encounter Summary ---
Author Organization [facility] [place] [address] Care Team Providers Care Oil Pipeline Dispatcher Name Role Phone Mariluz Watts MD Primary Care Provider [phone] Reason for Referral * Diagnostic Test (Routine) - Closed Specialty Diagnoses / Procedures Referred By John lyons Referred To Contact Radiology Diagnoses Osteopenia of multiple sites Procedures DXA Central-Spine, Hip, And/Or Whole Body (Generic) Abrahan Merlos MD [facility] DR HEMATOLOGY/[place] [address] [place] [address] Referral ID Status Reason Start Date Expiration Date V isits Requested Visits Authorized [id number] Closed Specialty Service Requested 12/26/2018 12/26/2019 1 1 Reason for Visit * Reason Comments Follow-up Encounter Details Date Type Department Care Team (Late st Contact Info) Description 12/26/2018 2:00 PM EDT Office Visit Hematology and Oncology at [facility] [address] Abrahan Merlos MD [facility] DR HEMATOLOGY/[place] [address] Osteopenia of multiple sites Social History Tobacco [...] to lose weight. 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 I will see her next in followup in M 2019, and I will repeat her Dexa scan then. She knows to contact us in the interim if she has any concerns over her breast exam. Abrahan Merlos MD restrooms or lounges maid in Hematology-Oncology documented in this encounter Plan of Treatment Upcoming Encounters Date Type Department Care Team (Late st Contact Info) Description 11/16/2024 1:00 PM EST Office [place] [phone] Paula Harris PA [facility] [place] [address] 01/26/2025 9:50 AM EDT Appointment Mammography/DXA at [place] [phone] Joan Deutsch [facility] [place] [address] 01/26/2025 10:30 AM EDT Office [place] [address] Joan Deutsch [facility] [place] [address] documented as of this encounter Results * [...] BMD measurements and plots are available in MePlease under the imaging tab. Paper copies will be sent to providers without E-[employer] access. If you have received this report without the data sheet and do not have access to [employer], please contact Radiology Airport Maintenance Chief at [phone] Saturday thru Saturday 8am-4pm. Thank you for [...] baseline, 0.042 g/cm2 (4.6 %) decrease. At [facility], least significant change for bone mineral [...] baseline, 0.042 g/cm2 (4.6 %) decrease. At [facility], least significant change for bonemineral density [...] BMD measurements and plots are available in EEcoviateunder the imaging tab. Paper copies will be sent to providers without E- access.If you have received this report without the data sheet and do not haveaccess to [employer], please contact Radiology Airport Maintenance Chief at [phone] Saturday thruFrid 8am-4pm. Thank you for letting us participate in the care of this patient. Forquestions regarding this report, please contact the number below. Abrahan Merlos MD IMG DEXA ORDERABLES documented in this encounter Visit Diagnoses Diagnosis Osteopenia of multiple sites Osteopenia of multiple sites documented in this encounter Care Teams Oil Pipeline Dispatcher Relationship Specialty Start Date End Date Mariluz Watts MD [address] [place] [address] PCP - General 08/22/10 documented as of this encounter
--- OUTSIDE RECORDS SUMMARY | 2024-08-11 17:10 | XMS_ITS | Encounter Summary ---
Author Organization [facility] Address [facility] [place] [address] Care Team Providers Care Rod Cup Filler Name Role Phone Mariluz Watts MD Primary Care Provider [phone] Reason for Visit * Physical Therapy (Routine) - Closed Specialty Diagnoses / Procedures Referred By John lyons Referred To Contact Physical Therapy Diagnoses OAB (overactive bladder) Bella Keenan MD [facility] [place] [address] [facility] Pt Rehab [address] [place] [address] Referral ID Status Reason Start Date Expiration Date V isits Requested Visits Authorized [id number] Closed Evaluate and Treat 10/11/2020 10/11/2021 12 12 Encounter Details Date Type Department Care Team (Late st Contact Info) Description 12/29/2020 11:00 AM EDT Office Visit Rehab PT at [facility] [address] [place] [address] Shaila Rendon PT OAB (overactive [...] holding. ?? 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 ? MET date Wearing Apparel Shaker Therapy Goals (6 months, 05/23/2021) 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... [...] PM EST Office Visit General Surgery at [place] [phone] Paula Harris, [place] [facility] [place] [address] 01/26/2025 9:50 AM EDT Appointment Mammography/DXA at [place] [phone] Joan Deutsch, GE [facility] [place] [address] 01/26/2025 10:30 AM EDT Office [place] [phone] Joan Deutsch, GE [facility] [place] [address] documented as of this encounter Visit Diagnoses Diagnosis OAB (overactive bladder) Hypertonicity of bladder Pelvic floor dysfunction Pelvic muscle wasting documented in this encounter Care Teams Rod Cup Filler Relationship Specialty Start Date End Date Mariluz Watts MD [address] [place] [address] PCP - General 08/22/10 documented as of this encounter
--- OUTSIDE RECORDS SUMMARY | 2024-08-11 17:10 | XMS_ITS | Encounter Summary ---
Author Organization [facility] [place] [address] Care Team Providers Care Asphalt Heater Tender Name Role Phone Mariluz Watts MD Primary Care Provider [phone] Encounter Details Date Type Department Care Team (Late st Contact Info) Description 03/27/2019 2:22 PM EDT Anesthesia Event [facility] [place] [address] Francisco Javier Britt MD [facility] [place] [address] Stoney Gatica MD [facility] [address] Anesthesia Record Procedure Summary Procedure Name Responsible [...] 1419; metacarpal vein (top of hand), left; jdjx-pju-xjghkt catheter system; 20 gauge, 1 in length; Shaila Espinosa HOSPITAL SOCIAL WORKER; intradermal injection; 03/27/19; 1520 03/27/19 1419 by [...] Procedure Summary Date: 03/27/19 Room / Location: [address] Anesthesia Start: 1422 Anesthesia Stop: 1500 Procedure: BLEPHAROPLASTY,UPPER EYELID, WITH EXCESSIVE SKIN, ANDRES (WRVU 6.81) (Bilateral Face) Diagnosis: Dermatochalasis of both upper eyelids (visually significant dermatochalasis, bilateral upper eyelids) Surgeon: Debbi Green MD Responsible Provider: Francisco Javier Britt MD Anesthesia Type: MAC ASA Status: 2 All Anesthesia Providers: Anesthesiologist: Francisco Javier Britt MD HOSPITAL SOCIAL WORKER: Shaila Espinosa CRNA Vitals Value Taken Time BP 137/77 03/27/2019 3:15 PM Temp Pulse 74 03/27/2019 3:16 PM Resp 16 03/27/2019 3:03 PM SpO2 98 % 03/27/2019 3:16 PM Pain Level 0 03/27/2019 3:24 PM Vitals shown include unvalidated device data. Patient Location: PACU/[facility] Level of Consciousness: Awake and Alert [...] prior to discharge. ??? S/P Left Anterior RASLAN- 07/22/12 (Dr. Ervin) Date: Jul 2211-11 Surgeon: Nick Ervin MD Surgical Procedure Performed: Injection left hip with 10 cc marcaine 0.25% with epi, into skin and subcutaneous tissues (CPT [id number]) left total hip arthroplasty, anterior Hueter approach with [place] table (CPT code 06478) Left hip intraoperative radiologic examination (CPT code 74123) Amicar infusion (5 g IV load, then 1g/hr x 3 hrs) Components Used: Nicole Accolade stem, size 4, 127 degrees Trident PSLcup, 52 mm, solid 32 mm ID, alumina 32-4 mm alumina head ??? Hip pain ??? S/P Right ARSLAN 03/06/2005 ([facility]io) SURGERY DATE: 03/06/2005 ARCADIO STEINER, NICK Angel Surgical Procedure Performed: Right total hip arthroplasty, cementless, yqyhlrm-jv-rgmjyfs Components Used: Nicole Trident 52 shell outer [...] hypermobility syndrome ??? GI bleeding 03/25/2011 ??? 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 [...] risks discussed with patient. Plan discussed with HOSPITAL SOCIAL WORKER. PAT Clinic Note documented in this encounter Plan of Treatment Upcoming Encounters Date Type Department Care Team (Late st Contact Info) Description 11/16/2024 1:00 PM EST Office [place] [phone] Paula Harris PA [facility] [place] [address] 01/26/2025 9:50 AM EDT Appointment Mammography/DXA at [place] [phone] Joan Deutsch, GE [facility] [place] [address] 01/26/2025 10:30 AM EDT Office Visit General Surgery at [place] [phone] Joan Deutsch, GE [facility] [place] [address] documented as of this encounter Visit Diagnoses [...] documented in this encounter Care Teams Asphalt Heater Tender Relationship Specialty Start Date End Date Mariluz Watts MD [address] [place] [address] [address] [place] [address] PCP - General 08/22/10 documented as of this encounter
--- OUTSIDE RECORDS SUMMARY | 2024-08-11 17:10 | XMS_ITS | Encounter Summary ---
[place] [address] Care Team Providers Care Glue Bone Drier Name Role Phone Mariluz Watts MD Primary Care Provider [phone] Encounter Details Date Type Department Care Team (Late st Contact Info) Description 12/11/2019 12:40 PM EDT Office [place] [address] Joan Deutsch APRN [facility] [place] [address] History of breast cancer Social History Tobacco [...] carcinoma with lobular features Tumor Grade: Intermediate Aqmicv-Mbdaj-Vbazineoqh Score: 7 Tubular Differentiation: 3 Mitotic Rate: [...] sentinel nodes: 2 (Specimen A - Right [place] node) No. positive for carcinoma: 1 (H&E) [...] PM EST Office [place] [phone] Paula Harris PA [facility] [place] [place] [address] 01/26/2025 9:50 AM EDT Appointment Mammography/[place] [phone] Kovatch, Joan L, [facility] [place] [address] 01/26/2025 10:30 AM EDT Office Visit General Surgery at [facility] [place] [address] Joan Deutsch, [facility] [place] [address] documented as of this encounter Results * [...] ? Electronically signed by: Beata Narayan MD, [facility] ([phone]), at 12/22/2020 5:41 PM Joan Deutsch ALL PURPOSE CLERK IMG MAMMO ORDERABLE S documented in this encounter Visit Diagnoses Diagnosis History of breast cancer Personal history of malignant neoplasm of breast History of breast cancer Personal history of malignant neoplasm of breast documented in this encounter Care Teams Glue Bone Drier Relationship Specialty Start Date End Date Mariluz Watts MD [address] [place] [address] PCP - General 08/22/10 documented as of this encounter
--- OUTSIDE RECORDS SUMMARY | 2024-08-11 17:10 | XMS_ITS | Encounter Summary ---
Author Organization [facility] [place] [address] Care Team Providers Care Asphalt Paving Foreman Name Role Phone Mariluz Watts MD Primary Care Provider [phone] Reason for Visit * Reason Onset Date Comments Pre Procedure Call 12/03/2018 Encounter Details Date Type Department Care Team (Late st Contact Info) Description 12/03/2018 Telephone [place] [address] Shekhar Moody MD [facility] [place] [address] Pre Procedure Call Social History Tobacco Use [...] left a message for patient to call [phone] directly and schedule surgery with Dr. Moody. * Telephone Encounter - Cleo Coyne - 12/03/2018 10:59 AM EST I called and left a message for patient to call [phone] directly and schedule surgery with Dr. moody. documented in this encounter Plan of Treatment Upcoming Encounters Date Type Department Care Team (Late st Contact Info) Description 11/16/2024 1:00 PM EST Office [place] [address] Paula Harris PA [facility] [place] [address] 01/26/2025 9:50 AM EDT Appointment Mammography/[place] [address] Joan Deutsch [facility] [place] [address] 01/26/2025 10:30 AM EDT Office Visit General Surgery at [place] [phone] Joan Deutsch [facility] [place] [address] documented as of this encounter Visit Diagnoses Not on filedocumented in this encounter Care Teams Asphalt Paving Foreman Relationship Specialty Start Date End Date Mariluz Watts MD [address] [place] [address] [address] [place] [address] PCP - General 08/22/10 documented as of this encounter
--- OUTSIDE RECORDS SUMMARY | 2024-08-11 17:10 | XMS_ITS | Encounter Summary ---
[place] [address] Care Team Providers Care Hand Alterations Tailor Name Role Phone Mariluz Watts MD Primary Care Provider [phone] Reason for Visit * Reason Onset Date Comments Bumped Appointment 04/06/2019 Encounter Details Date Type Department Care Team (Late st Contact Info) Description 04/06/2019 [place] [address] Shekhar Moody MD [facility] [place] [address] Bumped Appointment Social History Tobacco Use Types [...] Office Visit General Surgery at [place] [phone] Paula Harris PA [facility] [place] [address] 01/26/2025 9:50 AM EDT Appointment Mammography[place] [address] Joan Deutsch [facility] [place] [address] 01/26/2025 10:30 AM EDT Office Visit General Surgery at [place] [phone] Joan Deutsch LEAD MAN OVER ALL DIES IN PATTERN SHOP [facility] [place] [address] documented as of this encounter Visit Diagnoses Not on filedocumented in this encounter Care Teams Hand Alterations Tailor Relationship Specialty Start Date End Date Mariluz Watts MD [address] [facility] [address] [place] [address] PCP - General 08/22/10 documented as of this encounter
--- OUTSIDE RECORDS SUMMARY | 2024-08-11 17:10 | XMS_ITS | Encounter Summary ---
[place] [address] Care Team Providers Care Wildlife Technician Name Role Phone Mariluz Watts MD Primary Care Provider [phone] Reason for Visit * Reason Comments Dermatochalasis Encounter Details Date Type Department Care Team (Latest Contact Info) Description 07/22/2019 10:50 AM EDT Office [place] [address] Debbi Green MD [facility] [place] [address] Dermatochalasis of both upper eyelids Social History [...] Office Visit General Surgery at [place] [phone] Paula Harris PA [facility] [place] [address] 01/26/2025 9:50 AM EDT Appointment Mammography/DXA at [place] [phone] Joan Deutsch APRN [facility] [place] [address] 01/26/2025 10:30 AM EDT Office Visit General Surgery at [place] [phone] Joan Deutsch APRN [facility] [place] [address] documented as of this encounter Procedures Procedure [...] eyelids documented in this encounter Care Teams Wildlife Technician Relationship Specialty Start Date End Date Mariluz Watts MD [address] [place] [address] [address] [place] [address] PCP - General 08/22/10 documented as of this encounter
--- OUTSIDE RECORDS SUMMARY | 2024-08-11 17:10 | XMS_ITS | Encounter Summary ---
Author Organization [facility] [place] [address] Care Team Providers Care Sports Teacher Name Role Phone Mariluz Watts MD Primary Care Provider [phone] Reason for Visit * Reason Comments Follow-up Encounter Details Date Type Department Care Team (Late st Contact Info) Description 03/12/2019 9:15 AM EDT Office Visit Hematology [place] [address] Charity De La Cruz MD [facility] DR [place] [address] Pancho Singleton MD [facility] HEMATOLOGY/[place] [address] Iron deficiency anemia, unspecified iron deficiency anemia [...] were not included. [facility] [place] [address] HEMOSTASIS FOLLOW UP DATE OF VISIT 03/12/2019 [...] her labs showed resolution of anemia and adventism of iron stores (H/H 14.2/45 and ferritin [...] daily as needed. ??? multivit with calcium,iron,min (VVEEAVQQDXFJ-XD-KQDX-MINERALS ORAL) Take by mouth. ??? omeprazole (PRILOSEC) [...] OB RN - Home area -lives in [facility] with her son REVIEW OF SYSTEMS [...] as appropriate. Charity De La Cruz MD Land Surveyor Manager, [facility] documented in this encounter Plan of Treatment Upcoming Encounters Date Type Department Care Team (Late st Contact Info) Description 11/16/2024 1:00 PM EST Office [place] [address] Paula Harris PA [facility] [place] [address] 01/26/2025 9:50 AM EDT Appointment Mammography/[place] [address] Joan Deutsch [facility] [place] [address] 01/26/2025 10:30 AM EDT Office [place] [address]-1000 Joan Deutsch [facility] [place] [address] documented as of this encounter Results * Ferritin (03/12/2019 9:45 AM EDT) [facility] Ferritin 83 30 - 400 ng/mL [facility] Comment: Pediatric reference ranges not verified at [facility], interpret with caution. Reference ranges for females greater than 50 years of age approach values for men, i.e., 30-400 ng/mL. Blood specimen (specimen) 03/12/2019 9:45 AM EDT 03/12/2019 9:50 AM EDT Narrative Resulting Agency Comment Spec In Lab Charity De La Cruz MD CHEMISTRY ORDERABL ES [facility] [place] [address] * Hemogram (03/12/2019 9:45 AM EDT) [facility] White Blood Cell 5.7 4.0 - 9.5 x10(3)/[facility] LABORATORY Red Blood Cell 5.16 4.00 - 5.21 x10(6)/[facility] LABORATORY Hemoglobin 14.6 11.7 - 15.5 gm/dL [facility] Hematocrit 45.8 35.7 - 45.8 % [facility] Mean Cell Volume 88.8 82.6 - 94.4 fL [facility] Mean Cell Hemoglobin 28.3 27.1 - 32.0 pg [facility] Mean Cell Hemoglobin Concentration 31.9 31.7 - 35.0 gm/dL [facility] Platelet 228 145 - 357 x10(3)/[facility] LABORATORY RDW Standard Deviation 44.1 37.0 - 46.0 fL [facility] RDW coefficient of variation 13.6 11.5 - 14.1 % [facility] Mean Platelet Volume 11.1 7.6 - 12.9 fL [facility] NRBC% auto 0.0 % [facility] NRBC Absolute 0.000 0.000 - 0.000 x10(3)/[facility] LABORATORY Blood specimen (specimen) 03/12/2019 9:45 AM EDT 03/12/2019 9:50 AM EDT Narrative Resulting Agency Comment Spec In Lab Charity De La Cruz MD HEMATOLOGY ORDERAB LES Performing Organization Address City/State/[facility] Co de Phone Number [facility] [address] documented in this encounter Visit Diagnoses Diagnosis Iron deficiency anemia, unspecified iron deficiency anemia type documented in this encounter Care Teams Sports Teacher Relationship Specialty Start Date End Date Mariluz Watts MD [address] [place] [address] PCP - General 08/22/10 documented as of this encounter
--- OUTSIDE RECORDS SUMMARY | 2024-08-11 17:10 | XMS_ITS | Encounter Summary ---
[place] [address] Care Team Providers Care Vp Public Relations Name Role Phone Mariluz Watts MD Primary Care Provider [phone] Encounter Details Date Type Department Care Team (Late st Contact Info) Description 05/26/2019 Telephone Hematology [place] [address]1000 Laisha Grady RN Social History Tobacco Use [...] Gaming Gender (Pref): Female 73 y.o., 1945 *[phone] (Home Phone) HCA: Not Active Need Dish Maker: Date of Encounter: May 26, 2019 [...] call PT at home to advise at [phone]. Thanks for your time, Natalya documented in this encounter Plan of Treatment Upcoming Encounters Date Type Department Care Team (Late st Contact Info) Description 11/16/2024 1:00 PM EST Office [place] [phone] Paula Harris PA [facility] [place] [address] 01/26/2025 9:50 AM EDT Appointment Mammography/[place] [address] Joan Deutsch APRN [facility] [place] [address] 01/26/2025 10:30 AM EDT Office [place] [phone] Joan Deutsch APRN [facility] [place] [address] documented as of this encounter Visit Diagnoses Not on filedocumented in this encounter Care Teams Vp Public Relations Relationship Specialty Start Date End Date Mariluz Watts MD [address] [place] [address] PCP - General 08/22/10 documented as of this encounter
--- OUTSIDE RECORDS SUMMARY | 2024-08-11 17:11 | XMS_ITS | Encounter Summary ---
[place] [address] Care Team Providers Care Ground Equipment Mechanic Name Role Phone Mariluz Watts MD Primary Care Provider [phone] Reason for Visit * Reason Comments Anemia Encounter Details Date Type Department Care Team (Latest Contact Info) Description 10/31/2018 9:00 AM EST - 10/31/2018 11:59 PM EST Hospital Encounter Hematology [place] [address] Iron deficiency anemia, unspecified iron deficiency anemia [...] PM EST Office Visit General Surgery at [place] [phone] Paula Harris PA [facility] [place] [address] 01/26/2025 9:50 AM EDT Appointment Mammography/DXA at [place] [phone] Joan Deutsch INSURANCE ACCOUNT SPECIALIST [facility] [place] [address] 01/26/2025 10:30 AM EDT Office Visit [place] [phone] Joan Deutsch INSURANCE ACCOUNT SPECIALIST [facility] [place] [address] documented as of this encounter Visit Diagnoses [...] mg documented in this encounter Care Teams Ground Equipment Mechanic Relationship Specialty Start Date End Date Mariluz Watts MD [address] [facility] [place] [address] PCP - General 08/22/10 documented as of this encounter
--- OUTSIDE RECORDS SUMMARY | 2024-08-11 17:11 | XMS_ITS | Encounter Summary ---
[place] [address] Care Team Providers Care Ux Developer Name Role Phone Mariluz Watts MD Primary Care Provider [phone] Reason for Referral * Consultation (Routine) - Closed Specialty Diagnoses / Procedures Referred By John lyons Referred To Contact Gastroenterology Diagnoses Iron deficiency anemia, unspecified iron deficiency anemia type Pt having iron infusions currently and knee replacement surgery was postponed because of MAEVE. Procedures Call pt back at [phone]. Okay to leave msg. Alvin Sin MD [facility] DR HEMATOLOGY/[place] [address] [facility] Endoscopy [address] [place] [address] Referral ID Status Reason Start Date Expiration Date V isits Requested Visits Authorized [id number] Closed Consult, Test & Treat 10/03/2018 10/03/2019 1 1 Reason for Visit * Consultation (Urgent) - Closed Specialty Diagnoses / Procedures Referred By John lyons Referred To Contact Hematology and Oncology Diagnoses Primary osteoarthritis of left knee Hypochromic microcytic anemia Bleeding diathesis IRON DEFICIENCY ANEMIA Vic Olivas MD [facility] [place] [address] [facility] Hem Onc [address] [place] [address] Referral ID Status Reason Start Date Expiration Date V isits Requested Visits Authorized [id number] Closed Consult, Test & Treat Connection Center 09/19/2018 09/19/2019 1 1 Encounter Details Date Type Department Care Team (Late st Contact Info) Description 10/03/2018 10:00 AM EST Office Visit [place] [address] Charity De La Cruz MD [facility] DR HEMATOLOGY [place] [address] Maricarmen Martins, Alvin Romero MD [facility] HEMATOLOGY/[place] [address] Iron deficiency anemia, unspecified iron deficiency anemia [...] were not included. [facility] [place] [address] HEMOSTASIS CONSULTATION DATE OF VISIT 10/03/2018 Patient [...] Cruz. Alvin Valladares MD Hematology/Oncology fellow Pager [phone] +*+*+*+*+*+*+*+*+*+*+*+*+*+*+*+*+*+*+*+*+*+*+*+*+*+*+*+*+*+*+*+*+*+*+*+*+*+* Hemostasis Attending Physician I have independently [...] GI bleeding. Charity De La Cruz MD Carding Machine Operator, [facility] * Charity De La Cruz MD - 10/03/2018 10:00 AM EST Images from the original note were not included. [facility] [place] [address] +*+*+*+*+*+*+*+*+*+*+*+*+*+*+*+*+*+*+*+*+*+*+*+*+*+*+*+*+*+*+*+*+*+*+*+*+*+* Hemostasis Attending Physician I have independently [...] GI bleeding. Charity De La Cruz MD Carding Machine Operator, [facility] documented in this encounter Plan of Treatment Upcoming Encounters Date Type Department Care Team (Late st Contact Info) Description 11/16/2024 1:00 PM EST Office [place] [address] Paula Harris PA [facility] [place] [address] 01/26/2025 9:50 AM EDT Appointment Mammography/[place] [address] Joan Deutsch APRN [facility] [place] [place] [address] 01/26/2025 10:30 AM EDT Office [place] [address] Joan Deutsch BULB TESTER [facility] [place] [address] Scheduled Referrals Name Type Priority Associated Diagnoses Order Schedule Referral to Gastroenterology Outpatient Referral Routine Iron deficiency anemia, unspecified iron deficiency anemia type Ordered: 10/03/2018 documented as of this encounter Results * Ferritin (11/28/2018 10:20 AM EST) [facility] Signature Ferritin 110 30 - 400 ng/mL [facility] Comment: Pediatric reference ranges not verified at [facility] [place] interpret with caution. Reference ranges for females greater than 50 years of age approach values for men, i.e., 30-400 ng/mL. Blood specimen (specimen) 11/28/2018 10:20 AM EST 11/28/2018 10:35 AM EST Narrative Resulting Agency Comment Spec In Lab Charity De La Cruz MD CHEMISTRY ORDERABL ES [facility] [place] [address] documented in this encounter Visit Diagnoses Diagnosis Iron deficiency anemia, unspecified iron deficiency anemia type documented in this encounter Care Teams Ux Developer Relationship Specialty Start Date End Date Mariluz Watts MD [address] [place] [address] PCP - General 08/22/10 documented as of this encounter
--- OUTSIDE RECORDS SUMMARY | 2024-08-11 17:11 | XMS_ITS | Encounter Summary ---
[place] [address] Care Team Providers Care Cereal Supervisor Name Role Phone Mariluz Watts MD Primary Care Provider [phone] Reason for Visit * Reason Comments Anemia Encounter Details Date Type Department Care Team (Latest Contact Info) Description 10/17/2018 9:30 AM EST - 10/17/2018 11:59 PM EST Hospital Encounter [place]ematology [place] [address] Iron deficiency anemia, unspecified iron deficiency anemia [...] Office Visit General Surgery at [place] [phone] Paula Harris PA [facility] [place] [address] 01/26/2025 9:50 AM EDT Appointment Mammography/DXA at [place] [phone] Joan Deutsch AUTOMOBILE WRECKER [facility] [place] [place] [address] 01/26/2025 10:30 AM EDT Office [place] [address] Joan Deutsch AUTOMOBILE WRECKER [facility] [place] [place] [address] documented as of this encounter Visit Diagnoses [...] mg documented in this encounter Care Teams Cereal Supervisor Relationship Specialty Start Date End Date Mariluz Watts MD [address] [facility] [place] [address] PCP - General 08/22/10 documented as of this encounter
--- OUTSIDE RECORDS SUMMARY | 2024-08-11 17:11 | XMS_ITS | Encounter Summary ---
Author Organization [facility] [place] [address] Care Team Providers Care Stringer Up Soldering Machine Name Role Phone Mariluz Watts MD Primary Care Provider [phone] Encounter Details Date Type Department Care Team (Late st Contact Info) Description 03/26/2017 1:30 PM EDT - 03/26/2017 2:30 PM EDT Surgery [place] [address] Gallito Lincoln MD [facility] [place] [address] COLONOSCOPY, POLYPECTOMY, REMOVAL LESION BY SNARE (WRVU [...] ALPRAZolam (XANAX) 0.5 mg Tablet 12/07/2016 05/01/2018 [facility] CMB #[id number] ORAL Take 1 tablet by mouth daily. 12/24/2012 05/01/2018 Lysine 500 mg Tablet Take 1 tablet by mouth daily. Reported on 12/11/2016 05/01/2018 multivitamin (THERAGRAN) tablet Take 1 tablet by mouth daily. Reported on 12/11/2016 07/03/2018 ammonium lactate (LAC-HYDRIN) 12 % lotionIndications:SK (seborrheic keratosis) Apply topically as needed for Dry Skin. Use to rough spots on thighs. 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 pickler helper both scripts 02/02/14 400 g [...] EST Office [place] [phone] Paula Harris PA [facility] [place] [address] 01/26/2025 9:50 AM EDT Appointment Mammography/[place] [address] Joan Deutsch ENVIRONMENTAL REMEDIATION ENGINEER [facility] [address] 01/26/2025 10:30 AM EDT Office Visit [place] [phone] Joan Deutsch APRN [facility] [place] [address] documented as of this encounter Procedures Procedure [...] Report (03/26/2017 2:11 PM EDT) Final Diagnosis [id number] ?Location: 4T; EA07; A The signing pathologist [...] with low grade dysplasia Whole slide scan: [id number] ?? B1-1 [id number] B 1-2 [id number] B 1-3 CLINICAL INFORMATION Specimen Submitted: A [...] Sections/Processing: (T2) ??ejr 03/30/2017 1:11 PM EDT [facility] GI Biopsy 03/26/2017 2:11 PM EDT 03/26/2017 2:11 PM EDT GI Biopsy 03/26/2017 2:11 PM EDT 03/26/2017 2:11 PM EDT Gallito Lincoln MD PATHOLOGY/CYTOLOGY O RDERABLES Performing Organization Address City/State/[facility] [place] [address] * Specimen to Pathology (surgical or derm) (03/26/2017 2:11 PM EDT) AP Specimen 03/26/2017 2:11 PM EDT 03/26/2017 2:11 PM EDT Narrative [facility] - 03/26/2017 2:11 PM EDT Specimen requisition ordered. ??Separate Pathology report to follow Gallito Lincoln MD PATHOLOGY/CYTOLOGY O JOSELUIS Performing Organization Address [facility] [place] [address] * Specimen to Pathology (surgical or derm) (03/26/2017 2:11 PM EDT) AP Specimen 03/26/2017 2:11 PM EDT 03/26/2017 2:11 PM EDT Narrative [facility] - 03/26/2017 2:11 PM EDT Specimen requisition ordered. ??Separate Pathology report to follow Gallito Lincoln MD PATHOLOGY/CYTOLOGY O JOSELUIS Performing Organization Address [facility] [place] [address] * COLONOSCOPY (03/26/2017 12:20 PM EDT) COLONOSCOPY [facility] Endoscopy Procedure Date: 03/26/2017 12:20 PM ? Patient Name: Diamodn Gaming ? Date of : 1945 ? Age: 71 ? Order #: [id number] ? Instrument Name: [id number] ? Procedure: ? Colonoscopy Indications: ? Follow-up [...] preparation was evaluated using ? the BBPS ([place]worth Bowel Preparation ? Scale) with scores of: [...] RN) documented in this encounter Care Teams Stringer Up Soldering Machine Relationship Specialty Start Date End Date Mariluz Watts MD [address] [place] [address] PCP - General 08/22/10 documented as of this encounter
--- OUTSIDE RECORDS SUMMARY | 2024-08-11 17:11 | XMS_ITS | Encounter Summary ---
[place] [address] Care Team Providers Care Ribbon Blockmaker Name Role Phone Mariluz Watts MD Primary Care Provider [phone] Reason for Visit * Reason Comments Anemia Encounter Details Date Type Department Care Team (Latest Contact Info) Description 10/10/2018 11:30 AM EST - 10/10/2018 11:59 PM EST Hospital Encounter [place]ematology [place] [address] Iron deficiency anemia, unspecified iron deficiency anemia [...] Office Visit General Surgery at [place] [phone] Paula Harris PA [facility] [place] [address] 01/26/2025 9:50 AM EDT Appointment Mammography/[place] [address] Joan Deutsch APRN [facility] [place] [address] 01/26/2025 10:30 AM EDT Office [place] [address] Joan Deutsch FREIGHT ASSOCIATE [facility] [place] [address] documented as of this encounter Visit Diagnoses [...] mg documented in this encounter Care Teams Ribbon Blockmaker Relationship Specialty Start Date End Date Mariluz Watts MD [address] [place] [address] PCP - General 08/22/10 documented as of this encounter
--- OUTSIDE RECORDS SUMMARY | 2024-08-11 17:11 | XMS_ITS | Encounter Summary ---
[place] [address] Care Team Providers Care Store Team Leader Name Role Phone Mariluz Watts MD Primary Care Provider [phone] Reason for Visit * Reason Comments IV Medication Encounter Details Date Type Department Care Team (Latest Contact Info) Description 10/24/2018 6:58 AM EST - 10/24/2018 11:59 PM EST Hospital Encounter Hematology [place] [address] Iron deficiency anemia, unspecified iron deficiency anemia [...] PM EST Office Visit General Surgery at [place] [phone] Paula Harris PA [facility] [place] [address] 01/26/2025 9:50 AM EDT Appointment Mammography/DXA at [address] Joan Deutsch LAUNCHING PAD MECHANIC [facility] [place] [address] 01/26/2025 10:30 AM EDT Office Visit General Surgery at [place] [phone] Joan Deutsch LAUNCHING PAD MECHANIC [facility] [place] [address] documented as of this encounter Visit Diagnoses [...] mg documented in this encounter Care Teams Store Team Leader Relationship Specialty Start Date End Date Mariluz Watts MD [address] [facility] [place] [address] PCP - General 08/22/10 documented as of this encounter
--- OUTSIDE RECORDS SUMMARY | 2024-08-11 17:11 | XMS_ITS | Encounter Summary ---
[place] [address] Care Team Providers Care Wreath And Garland Maker Name Role Phone Mariluz Watts MD Primary Care Provider [phone] Encounter Details Date Type Department Care Team (Latest Contact Info) Description 09/18/2018 11:40 AM EST Clinical [place] [address] Primary osteoarthritis of left knee Social History [...] PM EST Office Visit [place] [address] Paula Harris PA [facility] [place] [address] 01/26/2025 9:50 AM EDT Appointment Mammography/[place] [address] Joan Deutsch [facility] [place] [address] 01/26/2025 10:30 AM EDT Office Visit [place] [address] Joan Deutsch, [facility] [place] [address] documented as of this encounter Procedures Procedure [...] (Bezet) 412 ms MUSE SYSTEM Calculated P [place] 57 degrees MUSE SYSTEM Calculated R [place] -31 degrees MUSE SYSTEM Calculated T [place] 52 degrees MUSE SYSTEM INTERPRETATION Sinus rhythm with Premature supraventricular complexes Left axis deviation Abnormal ECG When compared with ECG of 08-JUL-2012 13:37, Premature supraventricular complexes are now Present Confirmed by MD Sree, Sihvam ([id number]) on 09/18/2018 4:27:15 PM MUSE SYSTEM 09/18/2018 11:5 5 AM EST 09/18/2018 4:27 PM EST Shekhar Moody MD ECG ORDERABLES MUSE SYSTEM documented in this encounter Visit Diagnoses Diagnosis Primary osteoarthritis of left knee Primary localized osteoarthrosis, lower leg documented in this encounter Care Teams Wreath And Garland Maker Relationship Specialty Start Date End Date Mariluz Watts MD [address] [place] [address] PCP - General 08/22/10 documented as of this encounter
--- OUTSIDE RECORDS SUMMARY | 2024-08-11 17:11 | XMS_ITS | Encounter Summary ---
Author Organization [facility] [place] [address] Care Team Providers Care Formulation Scientist Name Role Phone Mariluz Watts MD Primary Care Provider [phone] Reason for Referral * Consultation (Urgent) - Closed Specialty Diagnoses / Procedures Referred By John lyons Referred To Contact Hematology and Oncology Diagnoses Primary osteoarthritis of left knee Hypochromic microcytic anemia Bleeding diathesis IRON DEFICIENCY ANEMIA Home Olivas MD [facility] [place] [address] [facility] [place]c [address] [place] [address] Referral ID Status Reason Start Date Expiration Date V isits Requested Visits Authorized [id number] Closed Consult, Test & Treat Connection Center 09/19/2018 09/19/2019 1 1 Reason for Visit * Reason Comments Pre-op Exam L TKA DOS 10/13/18 Encounter Details Date Type Department Care Team (Latest Contact Info) Description 09/18/2018 10:40 AM EST Office [place] [address] Home Olivas MD [facility] [place] [address] Preop examination; Primary osteoarthritis of left knee; [...] more (4 hours per week with personal injury attorney and 20minutes other days at home of [...] She would like the pantoprazole sent to [facility] in [facility], I have resent the script there. [...] PM EST Office Visit General Surgery at [place] [address] Paula Harris, PA [facility] [place] [address] 01/26/2025 9:50 AM EDT Appointment Mammography/[place] [address] Joan Deutsch, GE [facility] [place] [address] 01/26/2025 10:30 AM EDT Office Visit General Surgery at [place] [phone] Joan Deutsch, GE [facility] [place] [address] Scheduled Referrals Name Type Priority Associated Diagnoses [...] conditions documented in this encounter Care Teams Formulation Scientist Relationship Specialty Start Date End Date Mariluz Watts MD [address] [place] [address] PCP - General 08/22/10 documented as of this encounter
--- OUTSIDE RECORDS SUMMARY | 2024-08-11 17:11 | XMS_ITS | Encounter Summary ---
Author Organization [facility] [place] [address] Care Team Providers Care Automation And Controls Supervisor Name Role Phone Mariluz Watts MD Primary Care Provider [phone] Reason for Visit * Reason Comments Follow-up Encounter Details Date Type Department Care Team (Late st Contact Info) Description 12/12/2017 2:00 PM EDT Office Visit Hematology [place] [address] Abrahan Merlos MD [facility] HEMATOLOGY/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 She takes 3000 units of Vitamin [...] Dexa scan in 2019. Abrahan Merlos MD vamp maker in Hematology-Oncology documented in this encounter Plan of Treatment Upcoming Encounters Date Type Department Care Team (Late st Contact Info) Description 11/16/2024 1:00 PM EST Office [place] [address] Paula Harris PA [facility] [place] [address] 01/26/2025 9:50 AM EDT Appointment Mammography[place] [phone] Joan Deutsch APRN [facility] [place] [address] 01/26/2025 10:30 AM EDT Office [place] [address] Joan Deutsch APRN [facility] [place] [address] documented as of this encounter Visit Diagnoses Diagnosis Malignant neoplasm of right breast, stage 2 documented in this encounter Care Teams Automation And Controls Supervisor Relationship Specialty Start Date End Date Mariluz Watts MD [address] [place] [address] [address] [place] [address] PCP - General 08/22/10 documented as of this encounter
--- OUTSIDE RECORDS SUMMARY | 2024-08-11 17:11 | XMS_ITS | Encounter Summary ---
Author Organization [facility] [place] [address] Care Team Providers Care Wax Cutter Name Role Phone Mariluz Watts MD Primary Care Provider [phone] Encounter Details Date Type Department Care Team (Latest Contact Info) Description 09/18/2018 11:40 AM EST Laboratory [place] [phone] Primary osteoarthritis of left knee; Pain in [...] Office [place] [phone] Paula Harris PA [facility] GENERAL SURGERY [place], [place] [phone] 01/26/2025 9:50 AM EDT Appointment Mammography/DXA at [facility] [place] [phone] Joan Deutsch [facility] [place] [address] 01/26/2025 10:30 AM EDT Office Visit General Surgery at [facility] [place] [phone] Joan Deutsch, [facility] [place] [address] documented as of this encounter Procedures Procedure Name Priority Date/Time Associated Diagnosis Comments ABORH RECHECK STATUS Routine 09/18/2018 12:41 PM EST HEMOGRAM Routine 09/18/2018 12:41 PM EST Primary osteoarthritis of left knee DIFFERENTIAL, AUTOMATED Routine 09/18/2018 12:41 PM EST Primary osteoarthritis of left knee TYPE AND SCREEN, SDP (FUTURE SURGERY, [facility] SAME DAY PROGRAM ONLY) Routine 09/18/2018 12:41 [...] 12:41 PM EST) ABORH Type Recheck Completed [facility] Blood specimen (specimen) 09/18/2018 12:41 PM EST 09/18/2018 12:59 PM EST Narrative Resulting Agency Comment Spec In Lab Shekhar Moody MD BLOOD BANK LAB ORDER SALVATORE Performing Organization Address [facility]/ZIP Co de Phone Number [facility] [place] [address] * (ABNORMAL) Reticulocyte Count (09/18/2018 12:41 PM EST) Pathologist [facility] Reticulocyte % 1.5 0.7 - 2.5 % [facility] Retic Abs # 0.060 0.020 - 0.110 x10(6)/mcL [facility] Immature Retic% 18.4(H) 0.5 - 13.8 % [facility] Reticulated Hgb 21.5(L) 29.8 - 39.4 pg [facility] Blood specimen (specimen) Venous Draw / Unknown 09/18/2018 12:41 PM EST 09/18/2018 1:12 PM EST Narrative Resulting Agency Comment Spec In Lab Vic Olivas MD HEMATOLOGY ORDERA BLES Performing Organization Address City/[facility]/ZIP Co de Phone Number [facility] [place] [address] * (ABNORMAL) Iron and TIBC (09/18/2018 12:41 PM EST) Iron 16(L) 30 - 150 mcg/dL [facility] TIBC 490(H) 250 - 450 mcg/dL [facility] Iron Saturation 3(L) 20 - 50 % [facility] Blood specimen (specimen) Venous Draw / Unknown 09/18/2018 12:41 PM EST 09/18/2018 1:19 PM EST Narrative Resulting Agency Comment Spec In Lab Vic Olivas MD CHEMISTRY ORDERAB LES [facility] [place] [address] * Differential, Automated (09/18/2018 12:41 PM EST) Neutrophil % 54.3 % [facility] Neutrophil Absolute 3.10 1.70 - 6.10 x10(3)/[facility] Lymph % 31.1 % [facility] Lymphocytes Abs 1.8 0.9 - 3.2 x10(3)/[facility] Monocyte % 10.0 % [facility] Monocyte Abs 0.6 0.3 - 0.9 x10(3)/[facility] Eos % 3.3 % [facility] Eosinophils Abs 0.2 0.0 - 0.4 x10(3)/[facility] Basophil % 1.1 % [facility] Baso Absolute 0.1 0.0 - 0.1 x10(3)/[facility] Immature Gran % 0.20 % [facility] Comment: Immature granulocytes(IG's)percentage and absolute count will include metamyelocytes, myelocytes, and promyelocytes. Blood smears from CBCs yielding IG's will be scanned manually for concordance. If this scan disagrees with the automated IG or if promyelocytes are noted, a manual differential will be performed. Immature Gran Absolute 0.01 0.00 - 0.04 x10(3)/[facility] Blood specimen (specimen) 09/18/2018 12:41 PM EST 09/18/2018 1:12 PM EST Narrative Resulting Agency Comment Spec In Lab Shekhar Moody MD HEMATOLOGY ORDERABLE S [facility] [place] [address] * (ABNORMAL) Hemogram (09/18/2018 12:41 PM EST) White Blood Cell 5.7 4.0 - 9.5 x10(3)/[facility] Red Blood Cell 4.41 4.00 - 5.21 x10(6)/[facility] Hemoglobin 9.9(L) 11.7 - 15.5 gm/dL [facility] Hematocrit 33.1(L) 35.7 - 45.8 % [facility] Mean Cell Volume 75.1(L) 82.6 - 94.4 fL [facility] Mean Cell Hemoglobin 22.4(L) 27.1 - 32.0 pg [facility] Mean Cell Hemoglobin Concentration 29.9(L) 31.7 - 35.0 gm/dL [facility] Platelet 286 145 - 357 x10(3)/[facility] RDW Standard Deviation 43.3 37.0 - 46.0 fL [facility] RDW coefficient of variation 15.9(H) 11.5 - 14.1 % [facility] Mean Platelet Volume 12.1 7.6 - 12.9 fL [facility] NRBC% auto 0.0 % [facility] NRBC Absolute 0.000 0.000 - 0.000 x10(3)/[facility] Blood specimen (specimen) 09/18/2018 12:41 PM EST 09/18/2018 1:12 PM EST Narrative Resulting Agency Comment Spec In Lab Shekhar Moody MD HEMATOLOGY ORDERABLE S [facility] [place] [address] * Antibody screen (09/18/2018 12:41 PM EST) Ab Screen Interp Negative [facility] Expires at [id number] on: 10/16/2018 [facility] Blood specimen (specimen) 09/18/2018 12:41 PM EST 09/18/2018 12:59 PM EST Narrative Resulting Agency Comment Spec In Lab Shekhar Moody MD BLOOD BANK LAB ORDER SALVATORE [facility] [place] [address] * ABO/Rh Typing (09/18/2018 12:41 PM EST) ABORH Type O Neg [facility] Blood specimen (specimen) 09/18/2018 12:41 PM EST 09/18/2018 12:59 PM EST Narrative Resulting Agency Comment Spec In Lab Shekhar Moody MD BLOOD BANK LAB ORDER SALVATORE Performing Organization Address [facility]/ZIP Co de Phone Number [facility] [place] [address] * APTT (09/18/2018 12:41 PM EST) Partial Thromboplastin Time 35 25 - 37 sec [facility] Comment: The PTT is NOT appropriate for heparin monitoring. Use the Anti-Xa level for heparin monitoring (HEP UFH) or LMWH monitoring (HEP LMW). A PTT less than 37 seconds generally indicates adequate hemostasis. Blood specimen (specimen) 09/18/2018 12:41 PM EST 09/18/2018 1:12 PM EST Narrative Resulting Agency Comment Spec In Lab Shekhar Moody MD HEMATOLOGY ORDERABLE S Performing Organization Address City/[facility]/ZIP Co de Phone Number [facility] [place] [address] * Prothrombin Time (09/18/2018 12:41 PM EST) Prothrombin Time 11.5 9.4 - 12.5 sec [facility] International Normalization Ratio 1.0 [facility] Comment: An INR <2.0 [...] Lab Shekhar Moody MD HEMATOLOGY ORDERABLE S [facility] [place] [address] * (ABNORMAL) Basic Metabolic Panel (non-fasting) (09/18/2018 12:41 PM EST) Glucose 94 65 - 199 mg/dL [facility] Comment:Diabetes: >=200 mg/d L plus symptoms Blood Urea Nitrogen 14 8 - 18 mg/dL [facility] Creatinine 0.64(L) 0.70 - 1.20 mg/dL [facility] Sodium 143 135 - 145 mmol/L [facility] Potassium 3.5 3.5 - 5.0 mmol/L [facility] Comment: Please note: ??Patients with WBC >100,000 may have falsely elevated Potassium levels. ??For accurate Potassium quantification in these patients send serum separator tube (gold top) for subsequent determinations. ??Contact the Clinical Chemistry Laboratory if there are any questions. Chloride 106 98 - 107 mmol/L [facility] Carbon Dioxide 25 22 - 31 mmol/L [facility] Anion Gap 12 5 - 15 mmol/L [facility] Calcium 9.5 8.5 - 10.5 mg/dL [facility] Est Glomerular Filtration Rate 90 >=60 mL/min/1. 73 m?? [facility] Comment: The eGFR was calculated using the CKD-EPI equation. As with all creatinine based estimates of kidney function, eGFR values calculated with the CKD-EPI equation are not accurate in patients with acute kidney failure, extremes of body mass or the acutely ill. [email or web address] eGFR 105 >=60 mL/min/1. 73 m?? [facility] Comment: The eGFR was calculated using the CKD-EPI equation. As with all creatinine based estimates of kidney function, eGFR values calculated with the CKD-EPI equation are not accurate in patients with acute kidney failure, extremes of body mass or the acutely ill. [email or web address] Blood specimen (specimen) 09/18/2018 12:41 PM EST 09/18/2018 1:12 PM EST Narrative Resulting Agency Comment Spec In Lab Shekhar Moody MD CHEMISTRY ORDERABLES [facility] [place] [address] documented in this encounter Visit Diagnoses Diagnosis Primary osteoarthritis of left knee Primary localized osteoarthrosis, lower leg Pain in extremity, unspecified extremity documented in this encounter Care Teams Wax Cutter Relationship Specialty Start Date End Date Mariluz Watts MD [address] [place] [address] PCP - General 08/22/10 documented as of this encounter
--- OUTSIDE RECORDS SUMMARY | 2024-08-11 17:11 | XMS_ITS | Encounter Summary ---
[place] [address] Care Team Providers Care Glassware Engraver Name Role Phone Mariluz Watts MD Primary Care Provider [phone] Reason for Referral * Surgical (Routine) - Specialty Diagnoses / Procedures Referred By John lyons Referred To Contact Anesthesiology Diagnoses Primary osteoarthritis of left knee Shekhar Moody MD [facility] [place] [address] [place] [address] Referral ID Status Reason Start Date Expiration Date V isits Requested Visits Authorized [id number] Consult, Test & Treat 07/28/2018 07/28/2019 1 1 Reason for Visit * Reason Comments Foot Pain right Encounter Details Date Type Department Care Team (Latest Contact Info) Description 07/28/2018 9:00 AM EDT Office [place] [address] Shekhar Moody MD [facility] [place] [address] Primary osteoarthritis of left knee (Primary Dx); [...] [place] [address] Paula Harris PA [facility] [place] [address] 01/26/2025 9:50 AM EDT Appointment Mammography/[place] [address] Joan Deutsch APRN [facility] [place] [address] 01/26/2025 10:30 AM EDT Office [place] [address] Joan Deutsch APRN [facility] [place] [address] Scheduled Referrals Name Type Priority Associated Diagnoses Orde r Schedule Referral to General Anesthesiology Outpatient Referral Routine Primary osteoarthritis of left knee Ordered: 07/28/2018 documented as of this encounter Results * APTT (09/18/2018 12:41 PM EST) Partial Thromboplastin Time 35 25 - [address] [facility] Comment: The PTT is NOT appropriate for heparin monitoring. Use the Anti-Xa level for heparin monitoring (HEP UFH) or LMWH monitoring (HEP LMW). A PTT less than 37 seconds generally indicates adequate hemostasis. Blood specimen (specimen) 09/18/2018 12:41 PM EST 09/18/2018 1:12 PM EST Narrative Resulting Agency Comment Spec In Lab Shekhar Moody MD HEMATOLOGY ORDERABLE S [facility] [place] [address] * Prothrombin Time (09/18/2018 12:41 PM EST) Prothrombin Time 11.5 9.4 - 12.[address] [facility] International Normalization Ratio 1.0 MADDI [...] Lab Shekhar Moody MD HEMATOLOGY ORDERABLE S [facility] [place] [address] * (ABNORMAL) Basic Metabolic Panel (non-fasting) (09/18/2018 12:41 PM EST) Glucose 94 65 - 199 mg/dL [facility] Comment:Diabetes: >=200 mg/d L plus symptoms Blood Urea Nitrogen 14 8 - 18 mg/dL [facility] Creatinine 0.64(L) 0.70 - 1.20 mg/dL [facility] Sodium 143 135 - 145 mmol/L [facility] Potassium 3.5 3.5 - 5.0 mmol/L [facility] Comment: Please note: ??Patients with WBC >100,000 may have falsely elevated Potassium levels. ??For accurate Potassium quantification in these patients send serum separator tube (gold top) for subsequent determinations. ??Contact the Clinical Chemistry Laboratory if there are any questions. Chloride 106 98 - 107 mmol/L [facility] Carbon Dioxide 25 22 - 31 mmol/L [facility] Anion Gap 12 5 - 15 mmol/L [facility] Calcium 9.5 8.5 - 10.5 mg/dL [facility] Est Glomerular Filtration Rate 90 >=60 mL/min/1. 73 m?? [facility] Comment: The eGFR was calculated using the CKD-EPI equation. As with all creatinine based estimates of kidney function, eGFR values calculated with the CKD-EPI equation are not accurate in patients with acute kidney failure, extremes of body mass or the acutely ill. [email or web address] eGFR 105 >=60 mL/min/1. 73 m?? [facility] Comment: The eGFR was calculated using the CKD-EPI equation. As with all creatinine based estimates of kidney function, eGFR values calculated with the CKD-EPI equation are not accurate in patients with acute kidney failure, extremes of body mass or the acutely ill. [email or web address] Blood specimen (specimen) 09/18/2018 12:41 PM EST 09/18/2018 1:12 PM EST Narrative Resulting Agency Comment Spec In Lab Shekhar Moody MD CHEMISTRY ORDERABLES Performing Organization Address [facility] Co de Phone Number [facility] [place] [address] * EKG 12 Lead (09/18/2018 11:55 AM EST) Ventricular rate 74 BPM MUSE SYSTEM Atrial Rate 74 BPM MUSE SYSTEM P-R Interval 202 ms MUSE SYSTEM QRS Duration 84 ms MUSE SYSTEM Q-T Interval 372 ms MUSE SYSTEM QTC Calculated (Bezet) 412 ms MUSE SYSTEM Calculated P Steele 57 degrees MUSE SYSTEM Calculated R Steele -31 degrees MUSE SYSTEM Calculated T Steele 52 degrees MUSE SYSTEM INTERPRETATION Sinus rhythm with Premature supraventricular complexes Left axis deviation Abnormal ECG When compared with ECG of 08-JUL-2012 13:37, Premature supraventricular complexes are now Present Confirmed by MD Sree, Shivam ([id number]) on 09/18/2018 4:27:15 PM MUSE SYSTEM 09/18/2018 11:5 5 AM EST 09/18/2018 4:27 PM EST Shekhar Moody MD ECG ORDERABLES Performing Organization Address [facility] Co de Phone Number MUSE SYSTEM documented in this encounter Visit Diagnoses Diagnosis Primary osteoarthritis of left knee- Primary Primary localized osteoarthrosis, lower leg Osteoarthritis of right midfoot Pain in extremity, unspecified extremity documented in this encounter Care Teams Glassware Engraver Relationship Specialty Start Date End Date Mariluz Watts MD [address] [place] [address] PCP - General 08/22/10 documented as of this encounter
--- OUTSIDE RECORDS SUMMARY | 2024-08-11 17:11 | XMS_ITS | Encounter Summary ---
[place] [address] Care Team Providers Care Mechanic Recovery Name Role Phone Mariluz Watts MD Primary Care Provider [phone] Encounter Details Date Type Department Care Team (Latest Contact Info) Description 11/28/2018 10:16 AM EST - 11/28/2018 10:20 AM [facility] Encounter Hematology [place] [address] Discharge Disposition: Home Social History Tobacco Use [...] PM EST Office [place] [address] Paula Harris PA [facility] [place] [address] 01/26/2025 9:50 AM EDT Appointment Mammography/DXA at [place] [phone] Joan Deutsch APRN [facility] [place] [address] 01/26/2025 10:30 AM EDT Office Visit General Surgery at [place] [phone] Joan Deutsch APRN [facility] [place] [address] documented as of this encounter Procedures Procedure [...] AM EST) Hepatitis C Antibody Negative Negative [facility] Blood specimen (specimen) Venous Draw / Unknown 11/28/2018 10:20 AM EST 11/28/2018 10:51 AM EST Narrative Resulting Agency Comment Spec In Lab Mariluz Watts MD CHEMISTRY ORDERABLES Performing Organization Address City/[facility]/ZIP Co de Phone Number [facility] [place] [address] * Hepatitis B Core Antibody, Total (11/28/2018 10:20 AM EST) Hepatitis B Core Antibody Negative Negative [facility] Blood specimen (specimen) Venous Draw / Unknown 11/28/2018 10:20 AM EST 11/28/2018 10:51 AM EST Narrative Resulting Agency Comment Spec In Lab Mariluz Watts MD CHEMISTRY ORDERABLES Performing Organization Address City/[facility]/ZIP Co de Phone Number [facility] [place] [address] * Hepatitis B Surface Antibody (11/28/2018 10:20 AM EST) Hepatitis B Surface Antibody, Quantitative 6.5 IU/L [facility] Comment: HepB Surface Ab Quant: Unvaccinated: < 8.5 IU/L Vaccinated: > 11.5 IU/L Hepatitis B Surface Antibody Negative [facility] Comment: Patient is presumed to be not vaccinated or immune to HBV infection. Expected Results: Vaccinated: Positive Unvaccinated: Negative Blood specimen (specimen) Venous Draw / Unknown 11/28/2018 10:20 AM EST 11/28/2018 10:51 AM EST Narrative Resulting Agency Comment Spec In Lab Mariluz Watts MD CHEMISTRY ORDERABLES Performing Organization Address City/[facility]/ZIP Co de Phone Number [facility] [place] [address] * Hepatitis B Surface Antigen (11/28/2018 10:20 AM EST) Hepatitis B Surface Antigen Negative Negative [facility] Blood specimen (specimen) Venous Draw / Unknown 11/28/2018 10:20 AM EST 11/28/2018 10:51 AM EST Narrative Resulting Agency Comment Spec In Lab Mariluz Watts MD CHEMISTRY ORDERABLES Performing Organization Address City/[facility] Co de Phone Number [facility] [place] [address] documented in this encounter Visit Diagnoses Not on filedocumented in this encounter Care Teams Mechanic Recovery Relationship Specialty Start Date End Date Mariluz Watts MD [address] [place] [address] PCP - General 08/22/10 documented as of this encounter
--- OUTSIDE RECORDS SUMMARY | 2024-08-11 17:11 | XMS_ITS | Encounter Summary ---
Author Organization [facility] [place] [address] Care Team Providers Care Professor Of Fine Art Name Role Phone Mariluz Watts MD Primary Care Provider [phone] Reason for Visit * Reason Comments Advice Only left hand Dupuytrens Encounter Details Date Type Department Care Team (Latest Contact Info) Description 05/01/2018 11:15 AM EDT Office [place] [address] Ken Mosqueda MD [facility] [place] [address] Other secondary osteoarthritis of first carpometacarpal joint [...] Office [place] [phone] Paula Harris PA [facility] GENERAL SURGERY [place], [place] [phone] 01/26/2025 9:50 AM EDT Appointment Mammography/[place] [address] Joan Deutsch, GE [facility] [place] [address] 01/26/2025 10:30 AM EDT Office [place] [address] Joan Deutsch [facility] [address] documented as of this encounter Visit Diagnoses Diagnosis Other secondary osteoarthritis of first carpometacarpal joint of left hand documented in this encounter Care Teams Professor Of Fine Art Relationship Specialty Start Date End Date Marliuz Watts MD [address] [place] [address] PCP - General 08/22/10 documented as of this encounter
--- OUTSIDE RECORDS SUMMARY | 2024-08-11 17:11 | XMS_ITS | Encounter Summary ---
Author Organization [facility] [place] [address] Care Team Providers Care Inspector Aligning Name Role Phone Mariluz Watts MD Primary Care Provider [phone] Encounter Details Date Type Department Care Team (Latest Contact Info) Description 11/06/2018 11:48 AM EST - 11/06/2018 3:17 PM EST Hospital En[place] [address] Charisma Aguayo MD [facility] [place] [address] Discharge Disposition: Home Social History Tobacco Use [...] better as expected. Saturday-Saturday Same Day Endo [phone] Otherwise contact [phone] and ask to speak to the relocation commissioner reinforced concrete inspector Follow-up care is a hanna part of [...] PM EST Office [place] [phone] Paula Harris, PA [facility] [address] 01/26/2025 9:50 AM EDT Appointment Mammography[place] [address] Joan Deutsch APRN [facility] GENERAL SURGERY [place], [place] [phone] 01/26/2025 10:30 AM EDT Office [place] [address] Joan Deutsch, GE [facility] [place] [address] documented as of this encounter Procedures Procedure Name Priority Date/Time Associated Diagnosis Comments EGD, UPPER GI ENDOSCOPY (WRVU 2.09) 11/06/2018 1:07 PM EST Anemia UPPER GI ENDOSCOPY Routine 11/06/2018 12 :33 PM EST documented in this encounter Results * UPPER GI ENDOSCOPY (11/06/2018 12:33 PM EST) [facility] Signature UPPER GI ENDOSCOPY [facility] Endoscopy Procedure Date: 11/06/2018 12:33 PM ? Patient Name: Diamond Gaming ? Date of : 1945 ? Age: 72 ? Order #: [id number] ? Instrument Name: [id number] ? Procedure: ? Upper GI endoscopy Indications: [...] RN) documented in this encounter Care Teams Inspector Aligning Relationship Specialty Start Date End Date Mariluz Watts MD [address] [place] [address] PCP - General 08/22/10 documented as of this encounter
--- OUTSIDE RECORDS SUMMARY | 2024-08-11 17:11 | XMS_ITS | Encounter Summary ---
[place] [address] Care Team Providers Care Steam Plant Control Room Operator Name Role Phone Mariluz Watts MD Primary Care Provider [phone] Reason for Visit * Reason Comments Follow Up Surgery Encounter Details Date Type Department Care Team (Late st Contact Info) Description 12/12/2017 12:15 PM EDT Office Visit [place] [address] Bella Ly APRN [facility] [place] [address] History of breast cancer Social History Tobacco [...] carcinoma with lobular features Tumor Grade: Intermediate Hordjm-Ajgtd-Mdxjifgjjw Score: 7 Tubular Differentiation: 3 Mitotic Rate: [...] sentinel nodes: 2 (Specimen A - Right [place] node) No. positive for carcinoma: 1 (H&E) No. with IHC (+) cells only: 0 (cells not seen by H&E, see Note*) No. negative for carcinoma: 1 (both H&E and IHC For positive nodes: Largest kristi deposit 0.2 cm Extranodal extension Absent Estrogen/Progestin receptors: Performed on blocks C2 and C11 ER immunoreactivity: Positive (see Diagnostic hanna*) DE immunoreactivity: Positive (see Diagnostic hanna*) HER2/shonda expression [...] PM EST Office Visit [place] [address] Paula Harris PA [facility] [place] [address] 01/26/2025 9:50 AM EDT Appointment Mammography/[place] [address] Joan Deutsch APRN [facility] [place] [address] 01/26/2025 10:30 AM EDT Office Visit [place] [address] Joan Deutsch APRN [facility] [place] [address] documented as of this encounter Results * [...] BIRADS CATEGORY 2: Benign findings. * ??The [employer] and The Society of [...] contact the number below. ? Bella Ly MANAGEMENT DEVELOPMENT SPECIALIST IMG MAMMO ORDERA BLES documented in this encounter Visit Diagnoses Diagnosis History of breast cancer Personal history of malignant neoplasm of breast History of breast cancer Personal history of malignant neoplasm of breast documented in this encounter Care Teams Steam Plant Control Room Operator Relationship Specialty Start Date End Date Mariluz Watts MD [address] [place] [address] PCP - General 08/22/10 documented as of this encounter
--- OUTSIDE RECORDS SUMMARY | 2024-08-11 17:11 | XMS_ITS | Encounter Summary ---
Author Organization [facility] [place] [address] Care Team Providers Care Box Toe Cutter Name Role Phone Mariluz Watts MD Primary Care Provider [phone] Encounter Details Date Type Department Care Team (Late st Contact Info) Description 11/06/2018 1:00 PM EST - 11/06/2018 2:00 PM EST [place] [address] Charisma Aguayo MD [facility] [place] [address] EGD, UPPER GI ENDOSCOPY (WRVU 2.09) Social [...] better as expected. Saturday-Saturday Same Day Endo [phone] Otherwise contact [phone] and ask to speak to the range mounter diamond powder technician Follow-up care is a hanna part of [...] PM EST Office [place] [address] Paula Harris PA [facility] [place] [address] 01/26/2025 9:50 AM EDT Appointment Mammography[place] [address] Joan Deutsch APRN [facility] SURGERY [place], [place] [address] 01/26/2025 10:30 AM EDT Office [place] [address] Joan Deutsch, GE [facility] [place] [address] documented as of this encounter Procedures Procedure Name Priority Date/Time Associated Diagnosis Comments EGD, UPPER GI ENDOSCOPY (WRVU 2.09) 11/06/2018 1:07 PM EST Anemia UPPER GI ENDOSCOPY Routine 11/06/2018 12 :33 PM EST documented in this encounter Results * UPPER GI ENDOSCOPY (11/06/2018 12:33 PM EST) [facility] UPPER GI ENDOSCOPY [facility] Endoscopy Procedure Date: 11/06/2018 12:33 PM ? Patient Name: Diamond Gaming ? Date of : 1945 ? Age: 72 ? Order #: [id number] ? Instrument Name: [id number] ? Procedure: ? Upper GI endoscopy Indications: [...] RN) documented in this encounter Care Teams Box Toe Cutter Relationship Specialty Start Date End Date Mariluz Watts MD [address] [facility] 1 [place] [address] PCP - General 08/22/10 documented as of this encounter
--- OUTSIDE RECORDS SUMMARY | 2024-08-11 17:11 | XMS_ITS | Encounter Summary ---
Author Organization [facility] [place] [address] Care Team Providers Care Production Control Scheduler Name Role Phone Mariluz Watts MD Primary Care Provider Encounter Details Date Type Department Care Team (Latest Contact Info) Description 07/03/2018 9:46 AM EDT - 07/03/2018 11:59 PM EDT Hospital Encounter XRay at [address] [place] [address] Shekhar Moody MD [facility] [place] [address] Chronic pain of both knees Discharge Disposition: [...] PM EST Office [place] [address] Paula Harris PA [facility] [place] [place] [address] 01/26/2025 9:50 AM EDT Appointment Mammography/[place] [phone] Joan Deutsch APRN [facility] [place] [address] 01/26/2025 10:30 AM EDT Office [place] [phone] Joan Deutsch APRN [facility] [place] [address] documented as of this encounter Procedures Procedure Name Priority Date/Time Associated Diagnosis Comments XR KNEE STANDING ALIGNMENT AP LAT [place] SKYLINE BILAT Routine 07/03/2018 10:36 AM EDT Chronic pain of both knees documented in this encounter Results * XR Knee Standing Alignment AP Lat [place] Bilat (07/03/2018 10:36 AM EDT) Anatomical Region [...] knees documented in this encounter Care Teams Production Control Scheduler Relationship Specialty Start Date End Date Mariluz Watts MD [address] [facility] [place] [address] PCP - General 08/22/10 documented as of this encounter
--- OUTSIDE RECORDS SUMMARY | 2024-08-11 17:11 | XMS_ITS | Encounter Summary ---
Author Organization [facility] [place] [address] Care Team Providers Care Major Case Detective Name Role Phone Mariluz Watts MD Primary Care Provider [phone] Encounter Details Date Type Department Care Team (Late st Contact Info) Description 09/18/2018 11:59 PM EST Anesthesia [place] [phone] Juan Mei MD [facility] [place] [address] Anesthesia Record Procedure Summary Procedure Name Responsible [...] epi, into skin and subcutaneous tissues (CPT [id number]) left total hip arthroplasty, anterior Hueter approach with [place] table (CPT code 99196) Left hip intraoperative radiologic examination (CPT code 09075) Amicar infusion (5 g IV load, then 1g/hr x 3 hrs) Components Used: [place] Accolade stem, size 4, 127 degrees Trident PSLcup, 52 mm, solid 32 mm ID, alumina 32-4 mm alumina head ??? Hip pain ??? 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, denies chest pain/SOB Anesthetic Plan: -Records for prior echo requested from [facility] with ETT, consented for regional block [...] PM EST Office Visit General Surgery at [place] [phone] Paula Harris PA [facility] [place] [address] 01/26/2025 9:50 AM EDT Appointment Mammography/DXA at [place] [phone] Joan Deutsch APRN [facility] [place] [address] 01/26/2025 10:30 AM EDT Office Visit General Surgery at [place] [phone] Joan Deutsch PHOTOGRAPHIC SUPERVISOR [facility] [place] [place] [address] documented as of this encounter Visit Diagnoses Not on filedocumented in this encounter Care Teams Major Case Detective Relationship Specialty Start Date End Date Mariluz Watts MD [address] [place] [address] PCP - General 08/22/10 documented as of this encounter
--- OUTSIDE RECORDS SUMMARY | 2024-08-11 17:11 | XMS_ITS | Encounter Summary ---
[place] [address] Care Team Providers Care Stock Grader Name Role Phone Mariluz Watts MD Primary Care Provider [phone] Encounter Details Date Type Department Care Team (Latest Contact Info) Description 11/28/2018 9:53 AM EST - 11/28/2018 10:15 AM [facility] Hospital Encounter Hematology [place] [address] Iron deficiency anemia, unspecified iron deficiency anemia [...] Office Visit General Surgery at [place] [phone] Paula Harris PA [facility] [place] [address] 01/26/2025 9:50 AM EDT Appointment Mammography/[place] [address] Joan Deutsch APRN [facility] [place] [address] 01/26/2025 10:30 AM EDT Office [place] [address] Joan Deutsch APRN [facility] [place] [address] (work) documented as of this encounter Procedures [...] (11/28/2018 10:20 AM EST) Plat estimate Normal [facility] RBC Morphology Abnormal [facility] Microcyte 1-5 /HPF [facility] Ovalocytes 1-5 /HPF [facility] Tear Cell 1-5 /HPF [facility] [place] Cells 1-5 /HPF [facility] Blood specimen (specimen) 11/28/2018 10:20 AM EST 11/28/2018 10:31 AM EST Narrative Resulting Agency Comment Spec In Lab Alvin Sin MD HEMATOLOGY ORDERABLE S [facility] [place] [address] * Differential, Automated (11/28/2018 10:20 AM EST) Neutrophil % 54.8 % [facility] Neutrophil Absolute 2.86 1.70 - 6.10 x10(3)/[facility] Lymph % 31.4 % [facility] Lymphocytes Abs 1.6 0.9 - 3.2 x10(3)/[facility] Monocyte % 11.1 % [facility] Monocyte Abs 0.6 0.3 - 0.9 x10(3)/[facility] Eos % 1.5 % [facility] Eosinophils Abs 0.1 0.0 - 0.4 x10(3)/[facility] Basophil % 1.0 % [facility] Baso Absolute 0.0 0.0 - 0.1 x10(3)/[facility] Immature Gran % 0.20 % [facility] Comment: Immature granulocytes(IG's)percentage and absolute count will include metamyelocytes, myelocytes, and promyelocytes. Blood smears from CBCs yielding IG's will be scanned manually for concordance. If this scan disagrees with the automated IG or if promyelocytes are noted, a manual differential will be performed. Immature Gran Absolute 0.01 0.00 - 0.04 x10(3)/[facility] Blood specimen (specimen) 11/28/2018 10:20 AM EST 11/28/2018 10:31 AM EST Narrative Resulting Agency Comment Spec In Lab Alvin Sin MD HEMATOLOGY ORDERABLE S Performing Organization Address City/State/[facility] Co de Phone Number [facility] [place] [address] * (ABNORMAL) Hemogram (11/28/2018 10:20 AM EST) White Blood Cell 5.2 4.0 - 9.5 x10(3)/ L [facility] Red Blood Cell 5.74(H) 4.00 - 5.21 x10(6)/[facility] Hemoglobin 14.1 11.7 - 15.5 gm/dL [facility] Hematocrit 45.0 35.7 - 45.8 % [facility] Mean Cell Volume 78.4(L) 82.6 - 94.4 fL [facility] Mean Cell Hemoglobin 24.6(L) 27.1 - 32.0 pg [facility] Mean Cell Hemoglobin Concentration 31.3(L) 31.7 - 35.0 gm/dL [facility] Platelet 228 145 - 357 x10(3)/mc L [facility] RDW Standard Deviation 64.1(H) 37.0 - 46.0 fL [facility] RDW coefficient of variation 23.2(H) 11.5 - 14.1 % [facility] Mean Platelet Volume 11.4 7.6 - 12.9 fL [facility] NRBC% auto 0.0 % [facility] NRBC Absolute 0.000 0.000 - 0.000 x10(3)/mc L [facility] Blood specimen (specimen) 11/28/2018 10:20 AM EST 11/28/2018 10:31 AM EST Narrative Resulting Agency Comment Spec In Lab Alvin Sin MD HEMATOLOGY ORDERABLE S Performing Organization Address City/[facility] Co de Phone Number [facility] [place] [address] * Ferritin (11/28/2018 10:20 AM EST) [facility] Signature Ferritin 110 30 - 400 ng/mL [facility] Comment: Pediatric reference ranges not verified at [facility], interpret with caution. Reference ranges for females greater than 50 years of age approach values for men, i.e., 30-400 ng/mL. Blood specimen (specimen) 11/28/2018 10:20 AM EST 11/28/2018 10:35 AM EST Narrative Resulting Agency Comment Spec In Lab Charity De La Cruz MD CHEMISTRY ORDERABL ES Performing Organization Address City/[facility]/ZIP Co de Phone Number [facility] [place] [address] documented in this encounter Visit Diagnoses Diagnosis Iron deficiency anemia, unspecified iron deficiency anemia type documented in this encounter Care Teams Stock Grader Relationship Specialty Start Date End Date Mariluz Watts MD [address] [place] [address] PCP - General 08/22/10 documented as of this encounter
--- OUTSIDE RECORDS SUMMARY | 2024-08-11 17:11 | XMS_ITS | Encounter Summary ---
[place] [address] Care Team Providers Care Machine Clothing Man Name Role Phone Mariluz Watts MD Primary Care Provider [phone] Encounter Details Date Type Department Care Team (Late st Contact Info) Description 10/13/2018 Telephone [place] [address] Milena Williamson Social History Tobacco Use Types [...] - 10/13/2018 12:29 PM EST Diamond Gaming [id number] Diagnosis: Anemia 1. Have you ever had a EGD before? [] YES [x] NO If Yes, Date of Last [place]: If yes, did you have any problems with the procedure? [] YES [] NO Explain: What type of sedation was used: 2. Do you take any Blood Thinners? [] YES [x] NO If Yes, type: 3. Do you have a Pacemaker or Defibrillator device? [] YES [x] NO If Yes send inPerfect Storm Media message to [employer] ENDO DEVICE CHECK 4. Are you a [...] PM EST Office Visit General Surgery at [place] [phone] Paula Harris PA [facility] [place] [address] 01/26/2025 9:50 AM EDT Appointment Mammography/DXA at [place] [phone] Joan Deutsch [facility] [place] [address] 01/26/2025 10:30 AM EDT Office Visit General Surgery at [place] [phone] Joan Deutsch [facility] [place] [address] documented as of this encounter Visit Diagnoses Not on filedocumented in this encounter Care Teams Machine Clothing Man Relationship Specialty Start Date End Date Mariluz Watts MD [address] [place] [address] PCP - General 08/22/10 documented as of this encounter
--- OUTSIDE RECORDS SUMMARY | 2024-08-11 17:11 | XMS_ITS | Encounter Summary ---
Author Organization [facility] [place] [address] Care Team Providers Care Bat Carrier Name Role Phone Mariluz Watts MD Primary Care Provider [phone] Encounter Details Date Type Department Care Team (Latest Contact Info) Description 07/03/2018 9:46 AM EDT - 07/03/2018 11:59 PM EDT Hospital Encounter XRay at [address] [place] [address] Shekhar Moody MD [facility] [place]THOPAEDIC [place] [address] Right foot pain Discharge Disposition: Home Social [...] PM EST Office Visit General Surgery at [place] [phone] Paula Harris PA [facility] [place] [address] 01/26/2025 9:50 AM EDT Appointment Mammography/[place] [address] Joan Deutsch APRN [facility] [place] [address] 01/26/2025 10:30 AM EDT Office [place] [address] Joan Deutsch HEAD TENNIS COACH [facility] [place] [address] documented as of this encounter Procedures Procedure [...] limb documented in this encounter Care Teams Bat Carrier Relationship Specialty Start Date End Date Mariluz Watts MD [address] [place] [address] PCP - General 08/22/10 documented as of this encounter
--- OUTSIDE RECORDS SUMMARY | 2024-08-11 17:11 | XMS_ITS | Encounter Summary ---
Author Organization [facility] [place] [address] Care Team Providers Care Pets And Pet Supplies Salesperson Name Role Phone Mariluz Watts MD Primary Care Provider [phone] Encounter Details Date Type Department Care Team (Late st Contact Info) Description 09/18/2018 12:15 PM EST [place] [address] Social History Tobacco Use Types Packs/Day Years [...] PM EST Office [place] [address] Paula Harris, PA [facility] [place] [place] [address] 01/26/2025 9:50 AM EDT Appointment Mammography/[place] [address] Joan Deutsch, [facility] [place] [address] 01/26/2025 10:30 AM EDT Office [place] [address] Joan Deutsch, [facility] [place] [address] documented as of this encounter Visit Diagnoses Not on filedocumented in this encounter Care Teams Pets And Pet Supplies Salesperson Relationship Specialty Start Date End Date Mariluz Watts MD [address] [place] [address] [address] [place] [address] PCP - General 08/22/10 documented as of this encounter
--- OUTSIDE RECORDS SUMMARY | 2024-08-11 17:11 | XMS_ITS | Encounter Summary ---
[place] [address] Care Team Providers Care Rat Breeder Name Role Phone Mariluz Watts MD Primary Care Provider [phone] Encounter Details Date Type Department Care Team (Late st Contact Info) Description 11/28/2018 11:30 AM EST Office [place] [address] Bella Ly APRN [facility] [place] [address] History of breast cancer Social History Tobacco [...] carcinoma with lobular features Tumor Grade: Intermediate Boajqd-Siztx-Aetojunwgq Score: 7 Tubular Differentiation: 3 Mitotic Rate: [...] sentinel nodes: 2 (Specimen A - Right [place] node) No. positive for carcinoma: 1 (H&E) No. with IHC (+) cells only: 0 (cells not seen by H&E, see Note*) No. negative for carcinoma: 1 (both H&E and IHC For positive nodes: Largest kristi deposit 0.2 cm Extranodal extension Absent Estrogen/Progestin receptors: Performed on blocks C2 and C11 ER immunoreactivity: Positive (see Diagnostic hanna*) [place] immunoreactivity: Positive (see Diagnostic hanna*) HER2/shonda expression [...] PM EST Office [place] [address] Paula Harris PA [facility] [place] [address] 01/26/2025 9:50 AM EDT Appointment Mammography/[place] [phone] Joan Deutsch APRN [facility] [place] [address] 01/26/2025 10:30 AM EDT Office [place] [address] Joan Deutsch APRN [facility] [place] [address] documented as of this encounter Visit Diagnoses Diagnosis History of breast cancer Personal history of malignant neoplasm of breast documented in this encounter Care Teams Rat Breeder Relationship Specialty Start Date End Date Mariluz Watts MD [address] [place] [address] PCP - General 08/22/10 documented as of this encounter
--- OUTSIDE RECORDS SUMMARY | 2024-08-11 17:11 | XMS_ITS | Encounter Summary ---
Author Organization [facility] [place] [address] Care Team Providers Care Theoretical Physics Teacher Name Role Phone Mariluz Watts MD Primary Care Provider [phone] Encounter Details Date Type Department Care Team (Late st Contact Info) Description 11/28/2018 Notes Only Hematology [place] [address] Charity De La Cruz MD [facility] DR HEMATOLOGY [place] [address] Social History Tobacco Use Types Packs/Day Years [...] not included. [facility] [place] [address] HEMATOLOGY FOLLOW UP Kimi has completed her planned course of IV iron infusions and an EGD was performed that showed a big hiatal hernia with Oli erosions, likely the source of blood loss and iron deficiency. Labs today show resolution of anemia and yazidism of iron stores: Results for DIAMOND GAMING [...] 1. Continue oral iron supplementation for the care home to keep up with chronic GI loss. [...] as necessary. Charity De La Cruz MD [facility] documented in this encounter Plan of Treatment Upcoming Encounters Date Type Department Care Team (Late st Contact Info) Description 11/16/2024 1:00 PM EST Office Visit General Surgery at [place] [address] Paula Harris PA [facility] [place] [address] 01/26/2025 9:50 AM EDT Appointment Mammography/[place] [address] Joan Deutsch [facility] [place] [address] 01/26/2025 10:30 AM EDT Office Visit [place] [address] Joan Deutsch, [facility] [place] [address] documented as of this encounter Visit Diagnoses Not on filedocumented in this encounter Care Teams Theoretical Physics Teacher Relationship Specialty Start Date End Date Mariluz Watts MD [address] [place] [address] PCP - General 08/22/10 documented as of this encounter
--- OUTSIDE RECORDS SUMMARY | 2024-08-11 17:11 | XMS_ITS | Encounter Summary ---
[place] [address] Care Team Providers Care Staker Surveying Name Role Phone Mariluz Watts MD Primary Care Provider [phone] Encounter Details Date Type Department Care Team (Late st Contact Info) Description 11/28/2018 10:21 AM EST - 11/28/2018 11:59 PM EST Hospital Encounter Mammography/[place] [address] Bella Ly, RAW PRODUCTS DIRECTOR [facility] [place] [address] History of breast cancer Discharge Disposition: Home [...] PM EST Office [place] [address] Paula Harris PA [facility] [place] [address] 01/26/2025 9:50 AM EDT Appointment Mammography/[place] [address] Joan Deutsch APRN [facility] [place] [address] 01/26/2025 10:30 AM EDT Office [place] [address] Joan Deutsch, GE [facility] [place] [address] documented as of this encounter Procedures Procedure [...] contact the number below. ? Bella Ly RAW PRODUCTS DIRECTOR IMG MAMMO ORDERA BLES documented in this encounter Visit Diagnoses Diagnosis History of breast cancer Personal history of malignant neoplasm of breast documented in this encounter Care Teams Staker Surveying Relationship Specialty Start Date End Date Mariluz Watts MD [address] [place] [address] PCP - General 08/22/10 documented as of this encounter
--- OUTSIDE RECORDS SUMMARY | 2024-08-11 17:11 | XMS_ITS | Encounter Summary ---
Author Organization [facility] [place] [address] Care Team Providers Care Blood Donor Unit Assistant Name Role Phone Mariluz Watts MD Primary Care Provider [phone] Encounter Details Date Type Department Care Team (Latest Contact Info) Description 03/26/2017 12:26 PM EDT - 03/26/2017 3:19 PM EDT Hospital [place] [address] Gallito Lincoln MD [facility] [place] [address] Discharge Disposition: Home Social History Tobacco Use [...] ALPRAZolam (XANAX) 0.5 mg Tablet 12/07/2016 05/01/2018 [id number] Take 1 tablet by mouth daily. [...] PM EST Office [place] [address] Paula Harris PA [facility] [place] [address] 01/26/2025 9:50 AM EDT Appointment Mammography/[place] [address] Joan Deutsch APRN [facility] [place] [address] 01/26/2025 10:30 AM EDT Office Visit General Surgery at [facility] [place] [address] Joan Deutsch APRN [facility] [place] [address] documented as of this encounter Procedures Procedure [...] Report (03/26/2017 2:11 PM EDT) Final Diagnosis [id number] ?Location: 4T; EA07; A The signing pathologist [...] with low grade dysplasia Whole slide scan: [id number] ?? B1-1 [id number] B 1-2 [id number] B 1-3 CLINICAL INFORMATION Specimen Submitted: A [...] Sections/Processing: (T2) ??ejr 03/30/2017 1:11 PM EDT [facility] GI Biopsy 03/26/2017 2:11 PM EDT 03/26/2017 2:11 PM EDT GI Biopsy 03/26/2017 2:11 PM EDT 03/26/2017 2:11 PM EDT Gallito Lincoln MD PATHOLOGY/CYT[place] [address] * Specimen to Pathology (surgical or derm) (03/26/2017 2:11 PM EDT) AP Specimen 03/26/2017 2:11 PM EDT 03/26/2017 2:11 PM EDT Narrative [facility] - 03/26/2017 2:11 PM EDT Specimen requisition ordered. ??Separate Pathology report to follow Gallito Lincoln MD PATHOLOGY/CYTOLOGY O JOSELUIS Performing Organization Address [facility] [place] [address] * Specimen to Pathology (surgical or derm) (03/26/2017 2:11 PM EDT) AP Specimen 03/26/2017 2:11 PM EDT 03/26/2017 2:11 PM EDT Narrative [facility] - 03/26/2017 2:11 PM EDT Specimen requisition ordered. ??Separate Pathology report to follow Gallito Lincoln MD PATHOLOGY/CYTOLOGY O JOSELUIS Performing Organization Address [facility] [place] [address] * COLONOSCOPY (03/26/2017 12:20 PM EDT) COLONOSCOPY [facility] Endoscopy Procedure Date: 03/26/2017 12:20 PM ? Patient Name: Diamond Gaming ? Date of : 1945 ? Age: 71 ? Order #: [id number] ? Instrument Name: [id number] ? Procedure: ? Colonoscopy Indications: ? Follow-up [...] preparation was evaluated using ? the BBPS ([place] Bowel Preparation ? Scale) with scores of: [...] RN) documented in this encounter Care Teams Blood Donor Unit Assistant Relationship Specialty Start Date End Date Mariluz Watts MD [address] [place] [address] PCP - General 08/22/10 documented as of this encounter
--- OUTSIDE RECORDS SUMMARY | 2024-08-11 17:11 | XMS_ITS | Encounter Summary ---
Author Organization [facility] [place] [address] Care Team Providers Care Retrieval Specialist Name Role Phone Mariluz Watts MD Primary Care Provider [phone] Encounter Details Date Type Department Care Team (Latest Contact Info) Description 07/03/2018 9:45 AM EDT Hospital Encounter XRay at [address] [place] [address] Shekhar Moody MD [facility] ORTHOPAEDIC [place] [address] History of total left hip arthroplasty Discharge [...] PM EST Office [place] [address] Paula Harris PA [facility] [place] [address] 01/26/2025 9:50 AM EDT Appointment Mammography/[place] [address] Joan Deutsch APRN [facility] [place] [address] 01/26/2025 10:30 AM EDT Office [place] [address] Joan Deutsch NATUROPATHIC DOCTOR [facility] [place] [address] documented as of this encounter Procedures Procedure [...] arthroplasty documented in this encounter Care Teams Retrieval Specialist Relationship Specialty Start Date End Date Mariluz Watts MD [address] [place] [address] PCP - General 08/22/10 documented as of this encounter
--- OUTSIDE RECORDS SUMMARY | 2024-08-11 17:11 | XMS_ITS | Encounter Summary ---
Author Organization [facility] [place] [address] Care Team Providers Care Stock And Station Agent Name Role Phone Mariluz Watts MD Primary Care Provider [phone] Reason for Visit * Reason Comments Skin Lesion Encounter Details Date Type Department Care Team (Late st Contact Info) Description 08/14/2018 11:30 AM EST Office Visit Dermatology at [place] [facility] [address] [place] [address] Gardenia Cruz MD [facility] [place] [address] Florina Lechuga PA [facility] [address] [place] [address] Lentigines; Seborrheic keratoses; Seborrheic keratosis, inflamed; Blue [...] weeks. Please contact the Dermatology clinic at [phone] if the lesion has not fully resolved [...] Reviewed and signed by Florina Lechuga PA-C [facility] Patient seen in conjunction with staff jewelry sales associate: Gardenia Cruz MD Section of Dermatology [facility] documented in this encounter Plan of Treatment Upcoming Encounters Date Type Department Care Team (Late st Contact Info) Description 11/16/2024 1:00 PM EST Office [place] [address] Paula Harris PA [facility] [place] [address] 01/26/2025 9:50 AM EDT Appointment Mammography/[place] [address] Joan Deutsch, [facility] [place] [address] 01/26/2025 10:30 AM EDT Office [place] [address] Joan Deutsch, [facility] [place] [address] documented as of this encounter Visit Diagnoses Diagnosis Lentigines Other dyschromia Seborrheic keratoses Other seborrheic keratosis Seborrheic keratosis, inflamed Inflamed seborrheic keratosis Blue nevus Sebaceous hyperplasias of face Other specified disease of sebaceous glands Rosacea documented in this encounter Care Teams Stock And Station Agent Relationship Specialty Start Date End Date Mariluz Watts MD [address] [place] [address] PCP - General 08/22/10 documented as of this encounter
--- OUTSIDE RECORDS SUMMARY | 2024-08-11 17:11 | XMS_ITS | Encounter Summary ---
Author Organization [facility] [place] [address] Care Team Providers Care Manager Retention Name Role Phone Mariluz Watts MD Primary Care Provider [phone] Reason for Visit * Reason Comments Aftercare Of Tjr bilateral ASRLAN Bilateral Knee Pain Bilateral Foot Pain right foot pain > le ft foot pain Encounter Details Date Type Department Care Team (Latest Contact Info) Description 07/03/2018 11:00 AM EDT Office Visit [place] [address] Cornell Marinelli PA [facility] [place] [address] Hallux valgus of right foot; Osteoarthritis of [...] and the navicular cuneiform joints. Questionnaire Responses: [facility] Surgical Postop Visit 07/03/2018 PROMIS-10 General Health [...] Choose Same Treatment Again Probably no Orthopeadics [facility] Response 07/03/2018 HOOS JR Scores 73.47 Spine [facility] Response 07/03/2018 HOOS JR Scores 73.47 ASSESSMENT/PLAN: [...] arthritis ladder, attempting conservative therapy first with ymjv-zja-yaetvyf anti-inflammatories such as ibuprofen or naproxen along [...] PM EST Office Visit [place] [address] Paula Harris PA [facility] [place] [address] 01/26/2025 9:50 AM EDT Appointment Mammography/[place] [address] Joan Deutsch APRN [facility] [place] [address] 01/26/2025 10:30 AM EDT Office Visit [place] [address] Joan Deutsch APRN [facility] [place] [address] documented as of this encounter Visit Diagnoses Diagnosis Hallux valgus of right foot Osteoarthritis of right midfoot Primary osteoarthritis of left knee Primary localized osteoarthrosis, lower leg Status post total replacement of left hip Status post right hip replacement Hip joint replacement by other means documented in this encounter Care Teams Manager Retention Relationship Specialty Start Date End Date Mariluz Watts MD [address] [facility] [address] [place] [address] PCP - General 08/22/10 documented as of this encounter
--- OUTSIDE RECORDS SUMMARY | 2024-08-11 17:11 | XMS_ITS | Encounter Summary ---
Author Organization [facility] [place] [address] Care Team Providers Care Photonics Technician Name Role Phone Mariluz Watts MD Primary Care Provider [phone] Encounter Details Date Type Department Care Team (Latest Contact Info) Description 12/12/2017 12:16 PM EDT - 12/12/2017 11:59 PM EDT Hospital [place] [address] Brayden Chambers MD [facility] [place] [address] History of breast cancer Discharge Disposition: Home [...] ALPRAZolam (XANAX) 0.5 mg Tablet 12/07/2016 05/01/2018 [id number] Take 1 tablet by mouth daily. 12/24/2012 05/01/2018 Lysine 500 mg Tablet Take 1 tablet by mouth daily. Reported on 12/11/2016 05/01/2018 multivitamin (THERAGRAN) tablet Take 1 tablet by mouth daily. Reported on 12/11/2016 07/03/2018 ammonium lactate (LAC-HYDRIN) 12 % lotionIndications:SK (seborrheic keratosis) Apply topically as needed for Dry Skin. Use to rough spots on thighs. 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 turkey picker both scripts 02/02/14 400 g 10 [...] PM EST Office [place] [address] Paula Harris PA [facility] [place] [address] 01/26/2025 9:50 AM EDT Appointment Mammography/[place] [address] Joan Deutsch APRN [facility] [place] [address] 01/26/2025 10:30 AM EDT Office [place] [address] Joan Deutsch APRN [facility] [place] [address] documented as of this encounter Procedures Procedure [...] BIRADS CATEGORY 2: BENIGN FINDINGS * ??The [place] [employer] and The Society of [...] breast documented in this encounter Care Teams Photonics Technician Relationship Specialty Start Date End Date Mariluz Watts MD [address] [place] [address] PCP - General 08/22/10 documented as of this encounter
--- OUTSIDE RECORDS SUMMARY | 2024-08-11 17:12 | XMS_ITS | Encounter Summary ---
Author Organization [facility] [place] [address] Care Team Providers Care Electronics Technician Name Role Phone Mariluz Watts MD Primary Care Provider [phone] Reason for Visit * Reason Comments Follow-up Encounter Details Date Type Department Care Team (Late st Contact Info) Description 12/11/2016 10:30 AM EDT Office Visit [place] [address] Abrahan Merlos MD [facility] HEMATOLOGY/[place] [address] Breast cancer, stage 2, right Social History [...] same day. Please call my office at [phone] in the interim if you have any [...] she is considering seeing a urologist at [facility]. She has an occasional headache. 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 Abrahan Merlos MD chiller operator in Hematology-Oncology documented in this encounter Plan of Treatment Upcoming Encounters Date Type Department Care Team (Late st Contact Info) Description 11/16/2024 1:00 PM EST Office [place] [address] Paula Harris PA [facility] [place] [address] 01/26/2025 9:50 AM EDT Appointment Mammography/DXA at [place] [address] Joan Deutsch, GE [facility] [place] [address] 01/26/2025 10:30 AM EDT Office Visit [place] [address] Joan Deutsch, GE [facility] [place] [address] documented as of this encounter Visit Diagnoses Diagnosis Breast cancer, stage 2, right documented in this encounter Care Teams Electronics Technician Relationship Specialty Start Date End Date Mariluz Watts MD [address] [place] [address] PCP - General 08/22/10 documented as of this encounter
--- OUTSIDE RECORDS SUMMARY | 2024-08-11 17:12 | XMS_ITS | Encounter Summary ---
Author Organization [facility] [place] [address] Care Team Providers Care Spray Dyer Name Role Phone Mariluz Watts MD Primary Care Provider [phone] Encounter Details Date Type Department Care Team (Latest Contact Info) Description 09/14/2015 11:00 AM EST Office [place] [address] Rosales Bowman MD [facility] [place] [address] History of nephrolithiasis Social History Tobacco Use [...] rule out a UTI, she went to [facility] 5 days ago and had a [...] PM EST Office Visit [place] [address] Paula Harris PA [facility] [place] [address] 01/26/2025 9:50 AM EDT Appointment Mammography/[place] [address] Joan Deutsch APRN [facility] [place] [address] 01/26/2025 10:30 AM EDT Office Visit [place] [address] Joan Deutsch CHEMICAL INSPECTOR [facility] [place] [address] documented as of this encounter Visit Diagnoses Diagnosis History of nephrolithiasis Personal history of urinary calculi documented in this encounter Care Teams Spray Dyer Relationship Specialty Start Date End Date Mariluz Watts MD [address] [place] [address] PCP - General 08/22/10 documented as of this encounter
--- OUTSIDE RECORDS SUMMARY | 2024-08-11 17:12 | XMS_ITS | Encounter Summary ---
[place] [address] Care Team Providers Care Pediatric Genetic Counselor Name Role Phone Mariluz Watts MD Primary Care Provider [phone] Reason for Visit * Reason Comments Follow Up Surgery Encounter Details Date Type Department Care Team (Late st Contact Info) Description 12/11/2016 9:15 AM EDT Office Visit [place] [address] Bella Ly APRN [facility] [place] [address] History of breast cancer Social History Tobacco [...] spiculated mass. U/S guided biopsy revealed IDC/DCIS. Kmii then underwent MRI for surgical planning. This [...] carcinoma with lobular features Tumor Grade: Intermediate Ezhoik-Yvwdv-Pocqyeywvv Score: 7 Tubular Differentiation: 3 Mitotic Rate: [...] sentinel nodes: 2 (Specimen A - Right [place] node) No. positive for carcinoma: 1 (H&E) [...] PM EST Office [place] [address] Paula Harris PA [facility] [place] [address] 01/26/2025 9:50 AM EDT Appointment Mammography/[place] [address] Joan Deutsch APRN [facility] [place] [address] 01/26/2025 10:30 AM EDT Office Visit [place] [address] Joan Deutsch APRN [facility] [place] [address] documented as of this encounter Results * [...] BIRADS CATEGORY 2: BENIGN FINDINGS * ??The [employer] and The Society of [...] breast documented in this encounter Care Teams Pediatric Genetic Counselor Relationship Specialty Start Date End Date Mariluz Watts MD [address] [place] [address] PCP - General 08/22/10 documented as of this encounter
--- OUTSIDE RECORDS SUMMARY | 2024-08-11 17:12 | XMS_ITS | Encounter Summary ---
Author Organization [facility] [place] [address] Care Team Providers Care Air Compressor Engineer Name Role Phone Mariluz Watts MD Primary Care Provider [phone] Encounter Details Date Type Department Care Team (Latest Contact Info) Description 12/11/2016 7:30 AM EDT - 12/11/2016 7:32 AM EDT Hospital Encounter [place] [address] Gardenia Marquez MD [facility] [place] [place] [address] History of breast cancer Discharge Disposition: Home [...] 0.5 mg Tablet 12/07/2016 05/01/2018 LACT[facility]AC [facility] #[id number] ORAL Take 1 tablet by mouth daily. 12/24/2012 05/01/2018 Lysine 500 mg Tablet Take 1 tablet by mouth daily. Reported on 12/11/2016 05/01/2018 multivitamin (THERAGRAN) tablet Take 1 tablet by mouth daily. Reported on 12/11/2016 07/03/2018 ammonium lactate (LAC-HYDRIN) 12 % lotionIndications:SK (seborrheic keratosis) Apply topically as needed for Dry Skin. Use to rough spots on thighs. 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 steel pickler both scripts 02/02/14 400 g 10 [...] EST Office Visit [place] [address] Paula Harris PA [facility] [place] [address] 01/26/2025 9:50 AM EDT Appointment Mammography/[place] [address] Joan Deutsch APRN [facility] [place] [address] 01/26/2025 10:30 AM EDT Office Visit [place] [address] Joan Deutsch, GE [facility] [place] [address] documented as of this encounter Procedures Procedure [...] BIRADS CATEGORY 2: BENIGN FINDINGS * ??The [employer] and The Society of [...] breast documented in this encounter Care Teams Air Compressor Engineer Relationship Specialty Start Date End Date Mariluz Watts MD [address] [address] PCP - General 08/22/10 documented as of this encounter
--- OUTSIDE RECORDS SUMMARY | 2024-08-11 17:12 | XMS_ITS | Encounter Summary ---
Author Organization [facility] [place] [address] Care Team Providers Care Safety Grooving Machine Operator Name Role Phone Mariluz Watts MD Primary Care Provider [phone] Reason for Visit * Auth/Cert Specialty Diagnoses / Procedures Referred By John lyons Referred To Contact Diagnoses Pain Procedures CYSTO, STENT PLACEMENT Referral ID Status Reason Start Date Expiration Date Visits Re quested Visits Authorized [id number] 1 1 Encounter Details Date Type Department Care Team (Late st Contact Info) Description 07/11/2015 12:05 AM EDT - 07/11/2015 1:57 PM EDT Hospital Encounter Radiology Library at [facility] [place] [address] Jose D Chauhan III, MD [facility] [place] [address] Social History Tobacco Use Types Packs/Day Years [...] Refills Start Date End Date LACTOBAC CMB #[id number] ORAL Take 1 tablet by mouth daily. [...] spots on thighs. 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 pick up man both scripts 02/02/14 400 [...] PM EST Office [place] [address] Paula Harris PA [facility] [place] [address] 01/26/2025 9:50 AM EDT Appointment Mammography/DXA at [place] [phone] Joan Deutsch MANAGER PARK [facility] [place] [address] 01/26/2025 10:30 AM EDT Office [place] [address] Joan Deutsch [facility] [place] [address] Pending Results Name Type Priority Associated Diagnoses Date /Time FILM LIBRARY-FLUORO OR [id number] ONL Imaging Routine 07/11/2015 7:1 8 PM EDT documented as of this encounter Visit Diagnoses Not on filedocumented in this encounter Care Teams Safety Grooving Machine Operator Relationship Specialty Start Date End Date Mariluz Watts MD [address] [place] [address] [address] [facility] [address] [place] [address] PCP - General 08/22/10 documented as of this encounter
--- OUTSIDE RECORDS SUMMARY | 2024-08-11 17:12 | XMS_ITS | Encounter Summary ---
[place] [address] Care Team Providers Care Dog Bather Name Role Phone Mariluz Watts MD Primary Care Provider [phone] Reason for Visit * Reason Onset Date Comments Medication Problem 08/04/2015 Encounter Details Date Type Department Care Team (Late st Contact Info) Description 08/04/2015 [place] [address] Jennifer Suresh MD [facility] [place] [place] [address] Medication Problem Social History Tobacco Use Types [...] PM EST Office Visit General Surgery at [place] [phone] Paula Harris PA [facility] [place] [address] 01/26/2025 9:50 AM EDT Appointment Mammography/[place] [address] Joan Deutsch APRN [facility] [place] [place] [address] 01/26/2025 10:30 AM EDT Office Visit General Surgery at [place] [phone] Joan Deutsch APRN [facility] [place] [place] [address] documented as of this encounter Visit Diagnoses Not on filedocumented in this encounter Care Teams Dog Bather Relationship Specialty Start Date End Date Mariluz Watts MD [address] [place] [address] 1 [place] [address] PCP - General 08/22/10 documented as of this encounter
--- OUTSIDE RECORDS SUMMARY | 2024-08-11 17:12 | XMS_ITS | Encounter Summary ---
Author Organization [facility] [place] [address] Care Team Providers Care Burling And Joining Supervisor Name Role Phone Mariluz Watts MD Primary Care Provider [phone] Encounter Details Date Type Department Care Team (Latest Contact Info) Description 07/27/2015 - 07/27/2015 7:21 AM EDT Hospital Encounter Radiology Library at [facility] [place] [address] [facility] [place] [address] Discharge Disposition: Home Social History Tobacco Use [...] Refills Start Date End Date LACTOBAC CMB #[id number] ORAL Take 1 tablet by mouth daily. [...] to rough spots on thighs. 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 meat pickler both scripts 02/02/14 400 g 10 [...] PM EST Office [place] [address] [facility] [place] [address] 01/26/2025 9:50 AM EDT Appointment Mammography/[place] [address] Joan Deutsch [facility] [place] [address] 01/26/2025 10:30 AM EDT Office [place] [address] Joan Deutsch, [facility] [place] [address] Pending Results Name Type Priority Associated Diagnoses Date /Time FILM LIBRARY-FLUORO OR [id number] ONL Imaging Routine 07/27/2015 10: 20 AM EDT documented as of this encounter Visit Diagnoses Not on filedocumented in this encounter Care Teams Burling And Joining Supervisor Relationship Specialty Start Date End Date Mrailuz Watts MD [address] [place] [address] [address] [place] [address] PCP - General 08/22/10 documented as of this encounter
--- OUTSIDE RECORDS SUMMARY | 2024-08-11 17:12 | XMS_ITS | Encounter Summary ---
Author Organization Formerly [facility] [place] [address] Care Team Providers Care Ramp Jockey Name Role Phone Mariluz Watts MD Primary Care Provider [phone] Reason for Visit * Reason Comments Bilateral Foot Pain Rt > Lt * Consultation (Routine) - Closed Specialty Diagnoses / Procedures Referred By John lyons Referred To Contact Orthopaedics Diagnoses Right foot pain Scar Aviles II, [facility] [place] [address] [facility] [address] [place] [phone] Referral ID Status Reason Start Date Expiration Date V isits Requested Visits Authorized [id number] Closed Consult, Test & Treat 05/16/2016 05/16/2017 1 1 Encounter Details Date Type Department Care Team (Late st Contact Info) Description 05/23/2016 11:00 AM EDT Office [place] [address] Cornell Marinelli, [facility] [place] [address] Right foot pain; Osteoarthritis of [...] (CELEXA) 20 mg Tablet ??? LACTOBAC CMB #4-[id number] ORAL ??? Lysine 500 mg Tablet ??? [...] EST Office [place] [address] Paula Harris PA [facility] [place] [address] 01/26/2025 9:50 AM EDT Appointment Mammography/[place] [address] oJan Deutsch APRN [facility] [place] [address] 01/26/2025 10:30 AM EDT Office [place] [address] Joan Deutsch APRN [facility] [place] [address] documented as of this encounter Results * [...] limb documented in this encounter Care Teams Ramp Jockey Relationship Specialty Start Date End Date Mariluz Watts MD [address] [place] [address] PCP - General 08/22/10 documented as of this encounter
--- OUTSIDE RECORDS SUMMARY | 2024-08-11 17:12 | XMS_ITS | Encounter Summary ---
Author Organization Formerly [facility] [place] [address] Care Team Providers Care Electronic Gaming Device Supervisor Name Role Phone Mariluz Watts MD Primary Care Provider [phone] Reason for Visit * Auth/Cert Specialty Diagnoses / Procedures Referred By John lyons Referred To Contact Diagnoses Pain Procedures CYSTO, STENT PLACEMENT Referral ID Status Reason Start Date Expiration Date Visits Re quested Visits Authorized [id number] 1 1 Encounter Details Date Type Department Care Team (Late st Contact Info) Description 07/11/2015 5:47 PM EDT Anesthesia [place] [address] Aide Raymundo MD [facility] [place] [address] Jeramy Hernandez MD [facility] [place] [address] Anesthesia Record Procedure Summary Procedure Name Responsible [...] ARTHROPLASTY, ANTERIOR APPROACH MODIFIER ACCOLADE FEMORAL STEM NIAN MODIFIER TRIDENT PSL ACETABULUM NINA Patient Active [...] epi, into skin and subcutaneous tissues (CPT [id number]) left total hip arthroplasty, anterior Hueter approach with Summit table (CPT code 37424) Left hip intraoperative radiologic examination (CPT code 01067) Amicar infusion (5 g IV load, then 1g/hr x 3 hrs) Components Used: Nina Accolade stem, size 4, 127 degrees Trident PSLcup, 52 mm, solid 32 mm ID, alumina 32-4 mm alumina head ??? Hip pain ??? S/P Right ARSLAN 03/06/2005 ([facility]) SURGERY DATE: 03/06/2005 ARCADIO STEINER, NICK Angel Surgical Procedure Performed: Right total hip arthroplasty, cementless, rqqrnjo-jb-qrijpem Components Used: Nina Trident 52 shell outer [...] risks discussed with patient. Plan discussed with FOREST PRODUCTS TEACHER. Misc. Assessment: documented in this encounter Plan of Treatment Upcoming Encounters Date Type Department Care Team (Late st Contact Info) Description 11/16/2024 1:00 PM EST Office [place] [phone] Paula Harris PA [facility] [place] [address] 01/26/2025 9:50 AM EDT Appointment Mammography/[place] [address] Joan Deutsch APRN [facility] [place] [address] 01/26/2025 10:30 AM EDT Office [place] [address] Joan Deutsch, GE [facility] [place] [address] documented as of this encounter Visit Diagnoses [...] 1656, Administer over 4 Hours, call center recruiter to OR, Indication for (Active or Suspected): [...] mg documented in this encounter Care Teams Electronic Gaming Device Supervisor Relationship Specialty Start Date End Date Mariluz Watts MD [address] [place] [address] PCP - General 08/22/10 documented as of this encounter
--- OUTSIDE RECORDS SUMMARY | 2024-08-11 17:12 | XMS_ITS | Encounter Summary ---
Author Organization [facility] [place] [address] Care Team Providers Care Glazing Superintendent Name Role Phone Mariluz Watts MD Primary Care Provider [phone] Encounter Details Date Type Department Care Team (Latest Contact Info) Description 05/23/2016 9:53 AM EDT - 05/23/2016 11:59 PM EDT Hospital Encounter XRay at [address] [place] [address] Morgan Kong MD [facility] [place] [address] Right foot pain Discharge Disposition: Home Social [...] Refills Start Date End Date LACTOBAC CMB #5-[id number]-[id number] ORAL Take 1 tablet by mouth daily. 12/24/2012 05/01/2018 Lysine 500 mg Tablet Take 1 tablet by mouth daily. Reported on 12/11/2016 05/01/2018 multivitamin (THERAGRAN) tablet Take 1 tablet by mouth daily. Reported on 12/11/2016 07/03/2018 ammonium lactate (LAC-HYDRIN) 12 % lotionIndications:SK (seborrheic keratosis) Apply topically as needed for Dry Skin. Use to rough spots on thighs. 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 pepper picker both scripts 02/02/14 400 g 10 [...] EST Office [place] [address] Paula Harris PA [facility] [place] [address] 01/26/2025 9:50 AM EDT Appointment Mammography/[place] [address] Joan Deutsch APRN [facility] [place] [address] 01/26/2025 10:30 AM EDT Office [place] [phone] Joan Deutsch APRN [facility] [place] [address] documented as of this encounter Procedures Procedure [...] limb documented in this encounter Care Teams Glazing Superintendent Relationship Specialty Start Date End Date Mariluz Watts MD [address] [place] [address] [address] [place] [id number] PCP - General 08/22/10 documented as of this encounter
--- OUTSIDE RECORDS SUMMARY | 2024-08-11 17:12 | XMS_ITS | Encounter Summary ---
[place] [address] Care Team Providers Care Lease Out Worker Name Role Phone Mariluz Watts MD Primary Care Provider [phone] Reason for Visit * Reason Comments Follow Up Surgery Encounter Details Date Type Department Care Team (Late st Contact Info) Description 12/19/2015 11:45 AM EDT Office [place] [address] Bella Ly APRN [facility] [address] History of breast cancer Social History Tobacco [...] carcinoma with lobular features Tumor Grade: Intermediate Durqfg-Cygni-Gqsrcffopw Score: 7 Tubular Differentiation: 3 Mitotic Rate: [...] sentinel nodes: 2 (Specimen A - Right Brunswick node) No. positive for carcinoma: 1 (H&E) No. with IHC (+) cells only: 0 (cells not seen by H&E, see Note*) No. negative for carcinoma: 1 (both H&E and IHC For positive nodes: Largest kristi deposit 0.2 cm Extranodal extension Absent Estrogen/Progestin receptors: Performed on blocks C2 and C11 ER immunoreactivity: Positive (see Diagnostic hanna*) RI immunoreactivity: Positive (see Diagnostic hanna*) HER2/shonda expression [...] PM EST Office [place] [address] Paula Harris PA [facility] [place] [address] 01/26/2025 9:50 AM EDT Appointment Mammography/[place] [address] Joan Deutsch APRN [facility] [place] [place] [address] 01/26/2025 10:30 AM EDT Office Visit General Surgery at [facility] [place] [address] Joan Deutsch HEAD MACHINIST [facility] [place] [address] documented as of this encounter Results * [...] BIRADS CATEGORY 2: BENIGN FINDINGS * ??The [employer] and The Society of [...] breast documented in this encounter Care Teams Lease Out Worker Relationship Specialty Start Date End Date Mariluz Watts MD [address] [place] [address] PCP - General 08/22/10 documented as of this encounter
--- OUTSIDE RECORDS SUMMARY | 2024-08-11 17:12 | XMS_ITS | Encounter Summary ---
Author Organization [facility] [place] [address] Care Team Providers Care Prescription Clerk Name Role Phone Mariluz Watts MD Primary Care Provider [phone] Encounter Details Date Type Department Care Team (Latest Contact Info) Description 07/27/2015 7:22 AM EDT - 07/27/2015 12:50 PM EDT Hospital En[place] [address] Kami Bowman MD [facility] [place] [address] Nephrolithiasis (Primary Dx) Discharge Disposition: Home Social [...] pain medications The number for questions is [phone] before 5 PM weekdays and [phone] after 5 PM and weekends. Activity level: [...] weeks with a renal ultrasoundprior. Please call [phone] if you do not receive your appointment. [...] Refills Start Date End Date LACTOBAC CMB #7-[id number]-[id number] ORAL Take 1 tablet by mouth daily. [...] Operative Note Patient Name: Diamond Gaming : [id number] MR#: [id number] Case Date: 07/27/2015 Surgeon: Surgeon(s) and Role: [...] Operative Note Patient Name: Diamond Gaming : [id number] MR#: [id number] Case Date: 07/27/2015 Surgeon: Surgeon(s) and Role: [...] PM EST Office Visit [place] [address] Paula Harris PA [facility] [place] [address] 01/26/2025 9:50 AM EDT Appointment Mammography[place] [address] Joan Deutsch APRN [facility] [place] [address] 01/26/2025 10:30 AM EDT Office Visit General Surgery at [place] [phone] Joan Deutsch APRN [facility] [place] [address] Pending Results Name Type Priority Associated Diagnoses Date /Time FILM LIBRARY-FLUORO OR B-EUB-[id number] ONL Imaging Routine 07/27/2015 10: 20 AM EDT Scheduled Orders Name Type Priority Associated Diagnoses Orde r Schedule FILM LIBRARY-FLUORO OR V-WCS-[id number] ONL Imaging Routine Once PRN (f or [...] 11:02 am) Patient Info ID #: ? [id number] ?: ??[birth year] (69 yrs) Name: ? DIAMOND GAMING ? Visit Date: 09/14/2015 10:43 am Performed By Performed By: ? Abel JOSE, ??Christine Attending: ?Nitesh STEINER, Bella Associate: ?Ramon STEINER, [facility] Referred By: ?KAMI BOWMAN MD Service(s) Provided ??URETRO - Retroperitoneal Complete - [id number] ? [id number] Indications ??s/p left ureteroscopy/stent, r/o residual hydro [...] 09/14/2015 11:02 am) Patient Info ID #: [id number] : [birth year] (69 yrs) Name: DIAMOND GAMING Visit Date: 09/14/2015 10:43 am Performed By Performed By: Christine Roman RDMS Attending: Bella Dowling MD Associate: Deuce Navarro MD Referred By: KAMI BOWMAN MD Service(s) Provided URETRO - Retroperitoneal Complete - [id number] Indications s/p left ureteroscopy/stent, r/o residual hydro [...] 1 tablet, Oral, EVERY 4 HOURS PRN, Pain, Starting on Sat07/27/15 at 1017, Until Sat07/27/15 at 1450, Maximum dose of acetaminophen is 4000 mg from all sources in 24 hours. Given 07/27/2015 12:01 PM EDT 1 tablet [...] Recovery 1039 (Given - Provid er: Brenda Piasno, RN)1051 (Given - Provider: Brenda Pisano, RN) iohexol (OMNIPAQUE) 300 mg/mL solution [...] 1 tablet, Oral, EVERY 4 HOURS PRN, Pain, Starting on Sat07/27/15 at 1017, Until Sat07/27/15 at 1450, Maximum dose of acetaminophen is 4000 mg from all sources in 24 hours. 1201 (Given - Provid er: Brenda Pisano [...] Recovery documented in this encounter Care Teams Prescription Clerk Relationship Specialty Start Date End Date Mariluz Watts MD [address] [place] [address] 1 [place] [address] PCP - General 08/22/10 documented as of this encounter
--- OUTSIDE RECORDS SUMMARY | 2024-08-11 17:12 | XMS_ITS | Encounter Summary ---
Author Organization [facility] [place] [address] Care Team Providers Care Erp Technical Lead Name Role Phone Mariluz Watts MD Primary Care Provider [phone] Encounter Details Date Type Department Care Team (Latest Contact Info) Description 12/19/2015 10:28 AM EDT - 12/19/2015 11:59 PM EDT Hospital [place] [address] Gardenia Marquez MD [facility] [place] [address] Encounter for screening mammogram for breast cancer [...] Refills Start Date End Date LACTOBAC CMB #9-[id number]-[id number] ORAL Take 1 tablet by mouth daily. [...] to rough spots on thighs. 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 flower picker both scripts 02/02/14 400 g 10 [...] PM EST Office [place] [address] Paula Harris PA [facility] [place] [address] 01/26/2025 9:50 AM EDT Appointment Mammography/[place] [address] Joan Deutsch APRN [facility] [place] [address] 01/26/2025 10:30 AM EDT Office [place] [address] Joan Deutsch APRN [facility] [place] [address] documented as of this encounter Procedures Procedure [...] mammographic evidence of malignancy. RECOMMENDATION: * ??The [employer] and The Society of [...] cancer documented in this encounter Care Teams Erp Technical Lead Relationship Specialty Start Date End Date Mariluz Watts MD [address] [place] [address] PCP - General 08/22/10 documented as of this encounter
--- OUTSIDE RECORDS SUMMARY | 2024-08-11 17:12 | XMS_ITS | Encounter Summary ---
Author Organization [facility] [place] [address] Care Team Providers Care Lead Case Manager Name Role Phone Mariluz Watts MD Primary Care Provider [phone] Reason for Visit * Reason Comments Sinusitis Sinus issues Laryngitis Encounter Details Date Type Department Care Team (Late st Contact Info) Description 04/24/2016 1:00 PM EDT Office [place] [address] lCeo Kruger APRN [facility] [place] [address] Chronic rhinitis; Gastric reflux Social History Tobacco [...] this encounter Progress Notes * Cleo Kruger, FIRE ALARM OPERATOR - 04/24/2016 1:00 PM EDT Otolaryngology Outpatient Consultation Note Date of Visit: 04/24/2016 Location of Visit: Otolaryngology Clinic, [facility] Patient: Diamond Gaming ([id number] ; 1945 Primary Care Provider: MARILUZ WATTS [...] and bleeding doesn't help. She is using Vandemere pot in the past and that hasn't [...] Trazodone Social History: Diamond Gaming lives in [place] [address]*,. Family History: Family History Problem Relation Age [...] issues and rtc as needed. Cleo CHUA [place], [place] [address] Office documented in this encounter Plan of Treatment Upcoming Encounters Date Type Department Care Team (Late st Contact Info) Description 11/16/2024 1:00 PM EST Office [place] [address] Paula Harris PA [facility] [place] [address] 01/26/2025 9:50 AM EDT Appointment Mammography[place] [address] Joan Deutsch, [facility] [place] [address] 01/26/2025 10:30 AM EDT Office [place] [address] Joan Deutsch, [facility] [place] [address] documented as of this encounter Visit Diagnoses Diagnosis Chronic rhinitis Gastric reflux Esophageal reflux documented in this encounter Care Teams Lead Case Manager Relationship Specialty Start Date End Date Mariluz Watts MD [address] [place] [address] PCP - General 08/22/10 documented as of this encounter
--- OUTSIDE RECORDS SUMMARY | 2024-08-11 17:12 | XMS_ITS | Encounter Summary ---
[place] [address] Care Team Providers Care Electric Bath Attendant Name Role Phone Mariluz Watts MD Primary Care Provider [phone] Encounter Details Date Type Department Care Team (Late st Contact Info) Description 07/17/2015 [place] [address] Rohan James MD [facility] [place] [address] Social History Tobacco Use Types Packs/Day Years [...] Office Visit General Surgery at [place] [phone] Paula Harris PA [facility] [place] [address] 01/26/2025 9:50 AM EDT Appointment Mammography/DXA at [place] [phone] Joan Deutsch FOREST FIRE CONTROL OFFICER [facility] [place] [address] 01/26/2025 10:30 AM EDT Office Visit General Surgery at [place] [phone] Joan Deutsch FOREST FIRE CONTROL OFFICER [facility] [place] [address] documented as of this encounter Visit Diagnoses Not on filedocumented in this encounter Care Teams Electric Bath Attendant Relationship Specialty Start Date End Date Mariluz Watts MD [address] [place] [address] [address] [place] [address] PCP - General 08/22/10 documented as of this encounter
--- OUTSIDE RECORDS SUMMARY | 2024-08-11 17:12 | XMS_ITS | Encounter Summary ---
Author Organization [facility] [place] [address] Care Team Providers Care Computer Applications Engineer Name Role Phone Mariluz Watts MD Primary Care Provider [phone] Encounter Details Date Type Department Care Team (Late st Contact Info) Description 07/27/2015 9:07 AM EDT - 07/27/2015 11:05 AM EDT Surgery [place] [address] Kami Bowman MD [facility] [place] [address] CYSTO, REMOVAL OF STENT, FOREIGN BODY OR [...] pain medications The number for questions is [phone] before 5 PM weekdays and [phone] after 5 PM and weekends. Activity level: [...] weeks with a renal ultrasoundprior. Please call [phone] if you do not receive your appointment. [...] Refills Start Date End Date LACTOBAC CMB #3-[id number]-[id number] ORAL Take 1 tablet by mouth daily. [...] to rough spots on thighs. 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 pickers material handlers both scripts 02/02/14 400 g 10 02/01/2014 [...] Bowman MD - 07/27/2015 9:27 AM EDT [facility] Operative Note Patient Name: Diamond Gaming : [id number] MR#: [id number] Case Date: 07/27/2015 Surgeon: Surgeon(s) and Role: [...] Operative Note Patient Name: Diamond Gaming : [id number] MR#: [id number] Case Date: 07/27/2015 Surgeon: Surgeon(s) and Role: [...] PM EST Office Visit General Surgery at [place] [phone] Paula Harris PA [facility] [place] [address] 01/26/2025 9:50 AM EDT Appointment Mammography[place] [address] Joan Deutsch APRN [facility] [place] [address] 01/26/2025 10:30 AM EDT Office Visit General Surgery at [place] [phone] Joan Deutsch APRN [facility] [place] [address] Pending Results Name Type Priority Associated Diagnoses Date /Time FILM LIBRARY-FLUORO OR Z-JPP-[id number] ONL Imaging Routine 07/27/2015 10: 20 AM EDT Scheduled Orders Name Type Priority Associated Diagnoses Orde r Schedule FILM LIBRARY-FLUORO OR [id number] ONL Imaging Routine Once PRN (f or [...] 11:02 am) Patient Info ID #: ? [id number] ?: [birth year] (69 yrs) Name: ? DIAMOND GAMING ? Visit Date: 09/14/2015 10:43 am Performed By Performed By: ? Abel JOSELA, ??Christine Attending: ?Nitesh STEINER, Bella Associate: ?Ramon STEINER, [facility] Referred By: ?KAMI BOWMAN MD Service(s) Provided ??URETRO - Retroperitoneal Complete - [id number] ? [id number] Indications ??s/p left ureteroscopy/stent, r/o residual hydro [...] 09/14/2015 11:02 am) Patient Info ID #: [id number] : [birth year] (69 yrs) Name: DIAMOND GAMING Visit Date: 09/14/2015 10:43 am Performed By Performed By: Christine Roman RDMS Attending: Bella Dowling MD Associate: Ramon STEINER [facility] Referred By: KAMI BOWMAN MD Service(s) Provided URETRO - Retroperitoneal Complete - [id number] Indications s/p left ureteroscopy/stent, r/o residual hydro [...] hours. 1201 (Given - Provid er: Brenda Pisano, [place]) No Frequency Medication Order 07/25/2015 07/26/2015 07/27/2015 [...] Recovery documented in this encounter Care Teams Computer Applications Engineer Relationship Specialty Start Date End Date Mariluz Watts MD [address] [place] [address] PCP - General 08/22/10 documented as of this encounter
--- OUTSIDE RECORDS SUMMARY | 2024-08-11 17:12 | XMS_ITS | Encounter Summary ---
[place] [address] Care Team Providers Care Blanket Weaver Name Role Phone Mariluz Watts MD Primary Care Provider [phone] Reason for Visit * Reason Comments Follow-up Encounter Details Date Type Department Care Team (Late st Contact Info) Description 02/09/2016 2:00 PM EDT Office Visit Hematology [place] [address] Abrahan Merlos MD [facility] HEMATOLOGY/[place] [address] Breast cancer, stage 2, right; Osteopenia Social [...] we can't coordinate with Coral, ask my assistant corporate secretary to have me call you. Please call my office at [phone] in the interim if you have any [...] over her breast exam. Abrahan Merlos MD resource protection specialist in Hematology-Oncology documented in this encounter Plan of Treatment Upcoming Encounters Date Type Department Care Team (Late st Contact Info) Description 11/16/2024 1:00 PM EST Office Visit [place] [address] Paula Harris PA [facility] [place] [address] 01/26/2025 9:50 AM EDT Appointment Mammography/[place] [address] Joan Deutsch, [facility] [place] [address] 01/26/2025 10:30 AM EDT Office [place] [address] Joan Deutsch, [facility] [place] [address] documented as of this encounter Results * [...] BMD measurements and plots are available in [employer] under the imaging tab. Paper copies will be sent to providers without [employer] access. If you have received this report without the data sheet and do not have access to [employer], please contact Radiology Skidder at [phone] Saturday thru Saturday 8am-4pm. Narrative 12/11/2016 2:52 [...] BMD measurements and plots are available in [employer] the imaging tab. Paper copies will be sent to providers without [employer] access.If you have received this report without the data sheet and do not haveaccess to [employer], please contact Radiology Skidder at [phone] Saturday thruFrid 8am-4pm. Abrahan Merlos MD IMG DEXA ORDERABLES documented in this encounter Visit Diagnoses Diagnosis Breast cancer, stage 2, right Osteopenia Disorder of bone and cartilage, unspecified Osteopenia Disorder of bone and cartilage, unspecified documented in this encounter Care Teams Blanket Weaver Relationship Specialty Start Date End Date Mariluz Watts MD [address] [facility] 1 [place] [address] PCP - General 08/22/10 documented as of this encounter
--- OUTSIDE RECORDS SUMMARY | 2024-08-11 17:12 | XMS_ITS | Encounter Summary ---
Author Organization [facility] [place] [address] Care Team Providers Care Mobility Architect Manager Name Role Phone Mariluz Watts MD Primary Care Provider [phone] Encounter Details Date Type Department Care Team (Latest Contact Info) Description 09/14/2015 10:12 AM EST - 09/14/2015 11:59 PM [facility] Hospital [place] [address] Kami Bowman MD [facility] [place] [address] Nephrolithiasis Discharge Disposition: Home Social History Tobacco [...] Refills Start Date End Date LACTOBAC CMB #[id number] ORAL Take 1 tablet by mouth daily. [...] Office [place] [phone] Paula Harris PA [facility] [place] [address] 01/26/2025 9:50 AM EDT Appointment Mammography/[place] [phone] Joan Deutsch APRN [facility] [place] [address] 01/26/2025 10:30 AM EDT Office [place] [phone] Joan Deutsch APRN [facility] [place] [address] documented as of this encounter Procedures Procedure [...] 11:02 am) Patient Info ID #: ? [id number] ?: ??[birth year] (69 yrs) Name: ? DIAMOND GAMING ? Visit Date: 09/14/2015 10:43 am Performed By Performed By: ? Abel JSOE, ??Christine Attending: ?Bella Dowling MD Associate: ?Ramon STEINER, [facility] Referred By: ?KAMI BOWMAN MD Service(s) Provided ??URETRO - Retroperitoneal Complete - [id number] ? [id number] Indications ??s/p left ureteroscopy/stent, r/o residual hydro [...] 09/14/2015 11:02 am) Patient Info ID #: [id number] : [birth year] (69 yrs) Name: DIAMOND GAMING Visit Date: 09/14/2015 10:43 am Performed By Performed By: Christine Roman RDMS Attending: Bella Dowling MD Associate: Ramon STEINER [facility] Referred By: KAMI BOWMAN MD Service(s) Provided URETRO - Retroperitoneal Complete - [id number] Indications s/p left ureteroscopy/stent, r/o residual hydro [...] kidney documented in this encounter Care Teams Mobility Architect Manager Relationship Specialty Start Date End Date Mariluz Watts MD [address] [facility] [place] [address] PCP - General 08/22/10 documented as of this encounter
--- OUTSIDE RECORDS SUMMARY | 2024-08-11 17:12 | XMS_ITS | Encounter Summary ---
Author Organization [facility] [place] [address] Care Team Providers Care Tongue And Groove Machine Operator Name Role Phone Mariluz Watts MD Primary Care Provider [phone] Encounter Details Date Type Department Care Team (Latest Contact Info) Description 12/11/2016 7:33 AM EDT - 12/11/2016 11:59 PM EDT Hospital Encounter XRay at [address] [place] [address] Abrahan Merlos MD [facility] HEMATOLOGY/ON[facility]ARTER [place] [address] Osteopenia Discharge Disposition: Home Social History Tobacco [...] 0.5 mg Tablet 12/07/2016 05/01/2018 LACTOBAC CMB #[id number] ORAL Take 1 tablet by mouth daily. 12/24/2012 05/01/2018 Lysine 500 mg Tablet Take 1 tablet by mouth daily. Reported on 12/11/2016 05/01/2018 multivitamin (THERAGRAN) tablet Take 1 tablet by mouth daily. Reported on 12/11/2016 07/03/2018 ammonium lactate (LAC-HYDRIN) 12 % lotionIndications:SK (seborrheic keratosis) Apply topically as needed for Dry Skin. Use to rough spots on thighs. 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 flower buncher or picker both scripts 02/02/14 400 g 10 [...] PM EST Office [place] [phone] Paula Harris PA [facility] [place] [address] 01/26/2025 9:50 AM EDT Appointment Mammography/[place] [address] Joan Deutsch APRN [facility] [place] [address] 01/26/2025 10:30 AM EDT Office [place] [address] Joan Deutsch APRN [facility] [place] [address] documented as of this encounter Procedures Procedure [...] BMD measurements and plots are available in EPebble under the imaging tab. Paper copies will be sent to providers without EPebble access. If you have received this report without the data sheet and do not have access to [employer], please contact Radiology Senior Counsel at [phone] Saturday thru Saturday 8am-4pm. Narrative 12/11/2016 2:52 [...] not haveaccess to E-DH, please contact Radiology Senior Counsel at [phone] Saturday thruFrid 8am-4pm. Abrahan Merlos MD IMG DEXA ORDERABLES documented in this encounter Visit Diagnoses Diagnosis Osteopenia Disorder of bone and cartilage, unspecified documented in this encounter Care Teams Tongue And Groove Machine Operator Relationship Specialty Start Date End Date Mariluz Watts MD [address] [place] [address] PCP - General 08/22/10 documented as of this encounter
--- OUTSIDE RECORDS SUMMARY | 2024-08-11 17:12 | XMS_ITS | Encounter Summary ---
Author Organization [facility] [place] [address] Care Team Providers Care High [employer] Industrial Arts Teacher Name Role Phone Mariluz Watts MD Primary Care Provider [phone] Reason for Visit * Reason Comments Nephrolithiasis * Auth/Cert Specialty Diagnoses / Procedures Referred By John lyons Referred To Contact Diagnoses Pain Procedures CYSTO, STENT PLACEMENT Referral ID Status Reason Start Date Expiration Date Visits Re quested Visits Authorized [id number] 1 1 Encounter Details Date Type Department Care Team (Latest Contact Info) Description 07/11/2015 1:58 PM EDT - 07/13/2015 2:12 PM EDT Hospital Encounter [address] [place] [address] Stephen Chauhan III, MD [facility] [place] [address] Dk Polanco MD [facility] [place] [address] Pain; Kidney stone Discharge Disposition: Home Social [...] epi, into skin and subcutaneous tissues (CPT [id number]) left total hip arthroplasty, anterior Hueter approach with [place] table (CPT code 59870) Left hip intraoperative radiologic examination (CPT code 12586) Amicar infusion (5 g IV load, then 1g/hr x 3 hrs) Components Used: Nicole Accolade stem, size 4, 127 degrees Trident PSLcup, 52 mm, solid 32 mm ID, alumina 32-4 mm alumina head ??? Hip pain ??? S/P Right ARSLAN 03/06/2005 (Ar[facility]io) SURGERY DATE: 03/06/2005 ARCADIO STEINER, NICK [place] Surgical Procedure Performed: Right total hip arthroplasty, cementless, iygwiwg-bf-ucntvql Components Used: Nicole Trident 52 shell outer [...] the past, who presents in transfer from [facility] with a 3-4 mm mid left ureteral [...] which prompted her to present to the [facility] ED early this morning. There, labs were [...] Hospital Course: Ms. Gaming was admitted to [facility] 07/11/15. A stent was placed in her Left ureter the same day. She received IV antibiotics for 2 days and when her urine culture results from [facility] returned she was transitioned to a course [...] 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 cloth picker both scripts 02/02/14 Quantity: 400 g [...] pain medications The number for questions is [phone] before 5 PM weekdays and [phone] after 5 PM and weekends. Activity level: [...] stent removal in the office. Please call [phone] if you do not receive your appointment. [...] Discharge References/Attachments: Discharge References/Attachments KIDNEY STONE DIET (CAMEROONIAN) Electronically Signed By: HARSHA VENTURA MD 07/13/2015 documented in this encounter Discharge Instructions * Patient Instructions* Harsha Ventura MD - 07/12/2015 12:13 PM EDT Call your doctor for: ??? fevers greater than 101 ??? severe nausea or vomiting ??? increasing pain not controlled by pain medications The number for questions is [phone] before 5 PM weekdays and [phone] after 5 PM and weekends. Activity level: [...] stent removal in the office. Please call [phone] if you do not receive your appointment. [...] through Care Everywhere. * KIDNEY STONE DIET (CAMEROONIAN) documented in this encounter Medications at Time of Discharge Medication Sig Dispensed Refills Start Date End Date LACTOBAC CMB #[id number] ORAL Take 1 tablet by mouth daily. [...] team. No discharge needs identified atthis time. Hospital Laboratory Technician remains available as needed for coordination of [...] with a PMH of nephrolithiasis transferred to [facility] with a 3-4mm L ureteral stone, mild [...] the past, who presents in transfer from [facility] with a 3-4 mm mid left ureteral [...] which prompted her to present to the [facility] ED early this morning. There, labs were [...] Procedure Date: 08/18/2006 ??? Created by interface [id number] Procedure Date: 01/27/2007 ??? Created by interface [...] TRUNK performed by TIRSO CHAUDHARI at [facility] MAIN OR ??? Pro colonoscopy, diagnostic 02/29/2012 COLONOSCOPY, DIAGNOSTIC performed by RAJAT KUO at [facility] ENDOSCOPY ??? Pro total hip arthroplasty 07/22/2012 @TOTAL HIP ARTHROPLASTY, ANTERIOR APPROACH performed by NICK ERVIN at [facility] MAIN OR Social History History Social [...] 159 Cultures: Blood and urine cultures at [facility] and [facility] pending Imaging: CT abd/pelvis 07/11/2015: 3-4 mm [...] a 69 y.o. female who presents to [facility] with infected obstructing L renal stone. History [...] HPI 69-year-old female presents in transfer from [facility] with left-sided nephrolithiasis and transient hypotension with [...] She is not a diabetic. Presented to [facility] CT scan of the abdomen was performed [...] EDT Office of Care Management (OCM) / Hospital Laboratory Technician(CM)/ Initial Assessment Discussed patient with Provider Team and in multidisciplinary discharge-planning rounds. Reviewed record and interviewed patient. Introduced/reviewed CM role and services accepted. REASON for HOSPITALIZATION: Ms. Gaming is a 69 yo WF with a PMH of nephrolithiasis transferred to [facility] with a 3-4mm L ureteral stone, mild hydronephrosis, positive UA, and questionable urosepsisI. IVF, IV Zosyn q8, flomax, oxycodone, flagyl/lac-hydrin bid topical, nexium, celexa, bowel meds, Vit D3,I&O, PMH See H&P PREVIOUS FUNCTIONAL STATUS: Independent CURRENT FUNCTIONAL STATUS:Bedrest, OON chair/ambulate w staff SOCIAL / FAMILY SUPPORTS:, 69 year old female residing in [place], [place] and lists Deidra Renée and Willy Gaming as her contacts . ADVANCE DIRECTIVES: On file. Deidra is the primary and sole agent. HEALTH /PRESCRIPTION COVERAGE:Medicare A/B, I-Stand with prescription coverage with co-pays. CURRENT HOME/COMMUNITY SERVICES/EQUIPMENT: DME:None Home Health Agency:None Other:None GRAIN ELEVATOR AGENT REFERRAL: To be determined. PRIMARY CARE PHYSICIAN: MARILUZ WATTS MD (General) [address] [facility] / [place] [address] POTENTIAL DISCHARGE NEEDS: ?VNA PATIENT/FAMILY EDUCATION NEEDS: [...] Operative Note Patient Name: Diamond Gaming : [id number] MR#: [id number] Case Date: 07/11/2015 Surgeon: Surgeon(s) and Role: [...] condition. Jennifer Suresh MD Urology PGY-2 Pager: [phone] Associated attestation - Stephen Chauhan III, MD - 07/14/2015 1:29 PM EDT Attestation: Case Date: 07/11/2015 I was present and I participated during the entire procedure (does not need to include opening and closing). Stephen Chauhan III, MD 07/14/2015 * Brief Op Note - Jennifer Suresh MD - 07/11/2015 6:31 PM EDT Brief Operative Note Patient Name: Diamond Gaming : [id number] MR#: [id number] Case Date: 07/11/2015 Surgeon: Surgeon(s) and Role: * Stephne Chauhan III, MD - Primary * Jennifer [...] 1:59 PM EDT Arrived via EMS from [facility] due to Lt obstructed renal calculi, chills [...] PM EST Office Visit [place] [address] Paula Harris PA [facility] [place] [address] 01/26/2025 9:50 AM EDT Appointment Mammography/DXA at [place] [phone] Joan Deutsch [facility] [place] [address] 01/26/2025 10:30 AM EDT Office Visit [place] [phone] Joan Deutsch [facility] [place] [place] [address] Pending Results Name Type Priority Associated Diagnoses Date /Time FILM LIBRARY-FLUORO OR [id number] ONL Imaging Routine 07/11/2015 7:1 8 PM EDT Scheduled Orders Name Type Priority Associated Diagnoses Orde r Schedule FILM LIBRARY-FLUORO OR [id number] ONL Imaging Routine Once PRN (f or Radiant use) for 1 Occurrences starting 07/11/2015 until 07/11/2015 documented as of this encounter Procedures Procedure Name Priority Date/Time Associated Diagnosis Comments IMPLANTABLE DEVICES SCAN 015 12:00 AM EDT COLOR DIPPER SCAN 07/14/2015 12:00 AM EDT HEMOGRAM Routine [...] SCAN EXT O RDR/RSLT * SCAN DOC: COLOR DIPPER (07/14/2015 12:00 AM EDT) Anatomical Region Laterality [...] MD HEMATOLOGY ORDERA BLEDenisa Performing Organization Address [facility] de Phone Number CERRIGO MAYERIUM * (ABNORMAL) [...] MD HEMATOLOGY ORDERA BLES Performing Organization Address [facility] Co de Phone Number VALERIE MAYERIUM * Basic Metabolic Panel (non-fasting) (07/13/2015 2:15 AM EDT) Glucose 100 65 - 199 mg/dL CERNER MILLENNIUM Comment:Diabetes: >=200 mg/d L plus symptoms Blood Urea Nitrogen 15 8 - 18 mg/dL CERNER MILLENNIUM Creatinine 0.83 0.70 - 1.20 mg/dL CERNER MILLENNIUM Comment: Please note that the pediatric reference intervals supplied above were not validated at [facility]. Results from pediatric patients should [...] the following links into your internet browser. [email or web address] of [email or web address] [email or web address] of [email or web address] Blood specimen (specimen) 07/13/2015 2:15 AM EDT 07/13/2015 2:43 AM EDT Narrative Resulting Agency Comment Spec In Lab Stephen Chauhan III, MD [facility]AB [facility] [employer] * (ABNORMAL) Differential, Automated (07/12/2015 3:03 AM [...] Lab Stephen Chauhan III, MD HEMATOLOGY ORDERA [facility] CERNER MILLENNIUM * (ABNORMAL) Basic Metabolic Panel (non-fasting) (07/12/2015 3:03 AM EDT) [facility] Glucose 120 65 - 199 mg/dL CERNER MILLENNIUM Comment:Diabetes: >=200 mg/d L plus symptoms Blood Urea Nitrogen 11 8 - 18 mg/dL CERNER MILLENNIUM Creatinine 0.55(L) 0.70 - 1.20 mg/dL CERNER MILLENNIUM Comment: Please note that the pediatric reference intervals supplied above were not validated at [facility]. Results from pediatric patients should [...] the following links into your internet browser. [email or web address]://Bag of [email or web address] [email or web address] of Ice/DHMCnkf Blood specimen (specimen) 07/12/2015 3:03 AM EDT 07/12/2015 3:17 AM EDT Narrative Resulting Agency Comment Spec In Lab Stephen Chauhan III, MD CHEMISTRY ORDERAB LES Performing Organization Address [facility] de Phone Number VALERIE TOPETE * L-Lactate2 Whole Blood (07/11/2015 3:33 PM EDT) Lactate WB 1.6 mmol/L VALERIE TOPETE Blood specimen (specimen) 07/11/2015 3:33 PM EDT 07/11/2015 3:33 PM EDT Emergency Dept CHEMISTRY ORDERABLE S Performing Organization Address [facility] de Phone Number VALERIE MAYERIUM * Red Hold (07/11/2015 3:00 PM EDT) Red Hold Sample in lab. VALERIE TOPETE Blood specimen (specimen) Venous Draw / Unknown 07/11/2015 3:00 PM EDT 07/11/2015 3:29 PM EDT Clarence Monet MD CHEMISTRY ORDERABLES Performing Organization Address [facility] de Phone Number VALERIE MAYERIUM * Osborne [...] Monet MD CHEMISTRY ORDERABLES Performing Organization Address [facility] Co de Phone Number VALERIE MAYERIUM * Blue Tube HOLD (07/11/2015 3:00 PM EDT) Blue Hold Sample in lab. VALERIE MAYERIUM Blood specimen (specimen) Venous Draw / Unknown 07/11/2015 3:00 PM EDT 07/11/2015 3:28 PM EDT Clarence Monet MD HEMATOLOGY ORDERABLE S Performing Organization Address [facility] de Phone Number VALERIE MAYERIUM * (ABNORMAL) [...] MD HEMATOLOGY ORDERABLE S Performing Organization Address [facility] de Phone Number VALERIE TOPETE * (ABNORMAL) Creatinine (07/11/2015 3:00 PM EDT) Creatinine 0.57(L) 0.70 - 1.20 mg/dL [facility] Comment: Please note that the pediatric reference intervals supplied above were not validated at [facility]. Results from pediatric patients should be interpreted in conjunction to the patient's age, height and muscle mass. Est Glomerular Filtration Rate >60 >=60 [facility] Comment: This estimated GFR (eGFR) value [...] the following links into your internet browser. http://Bag of Ice/DHnkdep http://Bag of Ice/DHMCnkf Blood specimen (specimen) 07/11/2015 3:00 PM EDT 07/11/2015 3:27 PM EDT Narrative Resulting Agency Comment Spec In Lab Clarence Monet MD CHEMISTRY ORDERABLES Performing Organization Address [facility] de Phone Number VALERIE TOPETE * BUN (07/11/2015 3:00 PM EDT) Blood Urea Nitrogen 15 8 - 18 mg/dL [facility] Blood specimen (specimen) 07/11/2015 3:00 PM EDT 07/11/2015 3:27 PM EDT Narrative Resulting Agency Comment Spec In Lab Clarence Monet MD CHEMISTRY ORDERABLES Performing Organization Address [facility] Co de Phone Number CERNER MILLENNIUM [...] Monet MD CHEMISTRY ORDERABLES Performing Organization Address [facility] de Phone Number CERRIGO DYERENNIUM * Urine culture Clean Catch Urine (07/11/2015 2:00 PM EDT) Urine Culture No growth (Less than 1,000 cfu/ml). CERNER MILLENNIUM Urine specimen obtained by clean catch procedure (specimen) 07/11/2015 2:00 PM EDT 07/11/2015 4:08 PM EDT Narrative Resulting Agency Comment Spec In Lab Clarence Monet MD MICROBIOLOGY - GENER AL ORDERABLES Performing Organization Address [facility] Co de Phone Number VALERIE DYERENNIUM * [...] Urine Dipstick Clear Clear CERNER MILLENNIUM Specific [place] Urine Automated 1.016 1.002 - 1.030 CERNER [...] Until Discontinued, Routine 938 (Given - Provider: Kaht Deluna RN) 0935 (Given - Provider: Kath [...] Sat07/11/15 at 1656, Administer over 4 Hours, scallop dredger to OR, Indication for (Active or Suspected): [...] Routine documented in this encounter Care Teams [employer] Industrial Arts Teacher Relationship Specialty Start Date End Date Mariluz Watts MD [address] [place] [address] PCP - General 08/22/10 documented as of this encounter
--- OUTSIDE RECORDS SUMMARY | 2024-08-11 17:12 | XMS_ITS | Encounter Summary ---
Author Organization [facility] [place] [address] Care Team Providers Care Oven Baker Name Role Phone Mariluz Watts MD Primary Care Provider Reason for Referral * Consultation (Routine) - Closed Specialty Diagnoses / Procedures Referred By John lyons Referred To Contact Orthopaedics Diagnoses Right foot pain Scar Aviles II [facility] [place] [address] [facility] Orthopa[facility]ics [address] [place] [phone] Referral ID Status Reason Start Date Expiration Date V isits Requested Visits Authorized [id number] Closed Consult, Test & Treat 05/16/2016 05/16/2017 1 1 Encounter Details Date Type Department Care Team (Latest Contact Info) Description 05/16/2016 9:00 AM EDT Office [place] [phone] Scar Aviles II [facility] [place] [id number] Primary osteoarthritis involving multiple joints; Right foot [...] PM EST Office Visit General Surgery at [place] [phone] Paula Harris, PA [facility] [place] [address] 01/26/2025 9:50 AM EDT Appointment Mammography/DXA at [place] [phone] Joan Deutsch, [facility] [place] [address] 01/26/2025 10:30 AM EDT Office Visit General Surgery at [place] [phone] Joan Deutsch, MANAGEMENT CONSULTING [facility] [place] [address] Scheduled Referrals Name Type Priority Associated Diagnoses Orde r Schedule Referral to Podiatry Outpatient Referral Routine Right foot pain Ordered: 05/16/2016 documented as of this encounter Visit Diagnoses Diagnosis Primary osteoarthritis involving multiple joints Right foot pain Pain in limb documented in this encounter Care Teams Oven Baker Relationship Specialty Start Date End Date Mariluz Watts MD [address] [place] [address] PCP - General 08/22/10 documented as of this encounter
--- OUTSIDE RECORDS SUMMARY | 2024-08-11 17:12 | XMS_ITS | Encounter Summary ---
Author Organization [facility] [place] [address] Care Team Providers Care Photographic Equipment Inspector Name Role Phone Mariluz Watts MD Primary Care Provider [phone] Encounter Details Date Type Department Care Team (Late st Contact Info) Description 07/27/2015 9:17 AM EDT Anesthesia Event [place] [address] Jose D Ramos MD [facility] [place] [address] Karla Maurice MD [facility] [place] [address] Anesthesia Record Procedure Summary Procedure Name Responsible [...] 0915; metacarpal vein left (top of hand); guhj-bkc-dvcnhx catheter system; 20 gauge, 1 in length; [...] epi, into skin and subcutaneous tissues (CPT [id number]) left total hip arthroplasty, anterior Hueter approach with [place] table (CPT code 67032) Left hip intraoperative radiologic examination (CPT code 40892) Amicar infusion (5 g IV load, then 1g/hr x 3 hrs) Components Used: Nina Accolade stem, size 4, 127 degrees Trident PSLcup, 52 mm, solid 32 mm ID, alumina 32-4 mm alumina head ??? Hip pain ??? S/P Right ARSLAN 03/06/2005 ([facility]io) SURGERY DATE: 03/06/2005 ARCADIO STEINER, NICK Angel Surgical Procedure Performed: Right total hip arthroplasty, cementless, lhckgpi-he-ljdyvuo Components Used: Osprey Trident 52 shell outer diameter Femoral head [...] PM EST Office Visit General Surgery at [place] [phone] Paula Harris PA [facility] [place] [address] 01/26/2025 9:50 AM EDT Appointment Mammography/[place] [address] Joan Deutsch APRN [facility] [place] [place] [address] 01/26/2025 10:30 AM EDT Office [place] [phone] Joan Deutsch APRN [facility] [place] [place] [address] documented as of this encounter Visit Diagnoses [...] mg documented in this encounter Care Teams Photographic Equipment Inspector Relationship Specialty Start Date End Date Mariluz Watts MD [address] [place] [address] [address] [place] [address] PCP - General 08/22/10 documented as of this encounter
--- OUTSIDE RECORDS SUMMARY | 2024-08-11 17:13 | XMS_ITS | Encounter Summary ---
Author Organization [facility] [place] [address] Care Team Providers Care Crematorium Operator Name Role Phone Mariluz Watts MD Primary Care Provider [phone] Reason for Visit * Reason Comments Right Foot Pain ? scheduling surgery Encounter Details Date Type Department Care Team (Late st Contact Info) Description 08/12/2013 1:15 PM EST Office [place] [address] Morgan Kong MD [facility] [place] [address] Arthritis of right foot (Primary Dx) Discharge [...] [place] [facility] [place] has been on Plaquenil and is [...] PM EST Office [place] [address] Paula Harris PA [facility] [place] [address] 01/26/2025 9:50 AM EDT Appointment Mammography/DXA at [place] [phone] Joan Deutsch [facility] [place] [address] 01/26/2025 10:30 AM EDT Office Visit General Surgery at [place] [phone] Joan Deutsch [facility] [place] [address] documented as of this encounter Visit Diagnoses Diagnosis Arthritis of right foot- Primary Unspecified arthropathy, ankle and foot documented in this encounter Care Teams Crematorium Operator Relationship Specialty Start Date End Date Mariluz Watts MD [address] [facility] 1 [place] [address] PCP - General 08/22/10 documented as of this encounter
--- OUTSIDE RECORDS SUMMARY | 2024-08-11 17:13 | XMS_ITS | Encounter Summary ---
Author Organization [facility], [facility]ated [facility] [place] [address] Care Team Providers Care Gem Carver Name Role Phone Mariluz Watts MD Primary Care Provider [phone] Encounter Details Date Type Department Care Team (Late st Contact Info) Description 12/21/2014 1:49 PM EDT - 12/21/2014 2:52 PM EDT Hospital Encounter XRay at [address] [place] [address] Osteopenia Social History Tobacco Use Types Packs/Day [...] Refills Start Date End Date LACTOBAC CMB #0-[id number] ORAL Take 1 tablet by mouth daily. [...] PM EST Office [place] [address] Paula Harris PA [facility] [place] [address] 01/26/2025 9:50 AM EDT Appointment Mammography/[place] [address] Kovatch, Joan L, [facility] [place] [address] 01/26/2025 10:30 AM EDT Office Visit General Surgery at [facility] [place] [address] Joan Deutsch [facility] [place] [address] documented as of this encounter Procedures Procedure [...] BMD measurements and plots are available in [employer] under the imaging tab. Paper copies will be sent to providers without [employer] access. If you have received this report without the data sheet and do not have access to [facility], please contact Radiology Expedition Supervisor at [phone] Saturday thru Saturday 8am-4pm. Narrative 12/24/2014 9:38 [...] copies will be sent to providers without [facility] access.If you have received this report without the data sheet and do not haveaccess to [employer], please contact Radiology Expedition Supervisor at [phone] Saturday thrrid 8am-4pm. Abrahan Merlos MD IMG DEXA ORDERABLES documented in this encounter Visit Diagnoses Diagnosis Osteopenia Disorder of bone and cartilage, unspecified documented in this encounter Care Teams Gem Carver Relationship Specialty Start Date End Date Mariluz Watts MD [address] [facility] 1 [place] [address] PCP - General 08/22/10 documented as of this encounter
--- OUTSIDE RECORDS SUMMARY | 2024-08-11 17:13 | XMS_ITS | Encounter Summary ---
[place] [address] Care Team Providers Care General Dentist/Owner Name Role Phone Mariluz Watts MD Primary Care Provider [phone] Encounter Details Date Type Department Care Team (Latest Contact Info) Description 03/16/2014 8:57 AM EDT - 03/16/2014 11:59 PM EDT Hospital [place] [address] CLINIC, Kian Stone MD [address] [place] [address] S/P Left Anterior ARSLAN- 07/22/12 (Dr. Ervin) [...] Refills Start Date End Date LACTOBAC CMB #[id number] ORAL Take 1 tablet by mouth daily. [...] 12/11/2016 03/16/2013 05/01/2018 anastrozole (ARIMIDEX) 1 mg tabletIndications:[place] [facility] cancer, stage 2 Take 1 tablet [...] Pre-Procedure Diagnose(s): Left hip pain Diamond Gaming [id number] HISTORY: Pain left hip Left iliopsoas tendon sheath INJECTION UNDER CT TECHNIQUE: After an extensive conversation with the patient regarding risks and benefits, oral and written consent were obtained. A pre- procedural time-out was performed as per [facility] protocol. The patient was placed supine on [...] PM EST Office [place] [address] Paula Harris PA [facility] [place] [address] 01/26/2025 9:50 AM EDT Appointment Mammography/[place] [phone] Joan Deutsch APRN [facility] [place] [address] 01/26/2025 10:30 AM EDT Office [place] [address] Joan Deutsch APRN [facility] [place] [address] documented as of this encounter Procedures Procedure [...] pre- procedural time-out was performed as per [facility] protocol. ?? The patient was placed supine [...] pre- procedural time-out was performed as per [facility] protocol. The patient was placed supine on [...] means documented in this encounter Care Teams General Dentist/Owner Relationship Specialty Start Date End Date Mariluz Watts MD [address] [place] [address] PKY [facility] 1 [place] [address] PCP - General 08/22/10 documented as of this encounter
--- OUTSIDE RECORDS SUMMARY | 2024-08-11 17:13 | XMS_ITS | Encounter Summary ---
Author Organization [facility] [place] [address] Care Team Providers Care Cook Fish And Chips Name Role Phone Mariluz Watts MD Primary Care Provider [phone] Reason for Visit * Reason Comments Follow-up Encounter Details Date Type Department Care Team (Late st Contact Info) Description 12/22/2013 1:00 PM EDT Follow-Up [place]ology [place] [address] Abrahan Merlos MD [facility] DR HEMATOLOGY/[place] [address] Osteopenia; Breast cancer, stage 2 Discharge Disposition: [...] who started her on plaquenil and on pegojsomjg64 mg daily. Diamond currently has pain in [...] in followup insix months. Abrahan Merlos MD rotary bar operator in Hematology-Oncology * Kamala Mello RN - [...] PM EST Office [place] [address] Paula Harris PA [facility] [place] [address] 01/26/2025 9:50 AM EDT Appointment Mammography/[place] [address] Joan Deutsch, TOUCHER UP [facility] [place] [address] 01/26/2025 10:30 AM EDT Office [place] [address] Joan Deutsch, GE [facility] [place] [address] documented as of this encounter Procedures Procedure [...] In Lab Abrahan Merlos MD CHEMISTRY ORDERABLES [facility] * VIT D Total Evaluation (12/22/2013 11:59 [...] City/State/[facility] [place] Phone Number [facility] documented in this encounter Visit Diagnoses Diagnosis Osteopenia Disorder of bone and cartilage, unspecified Breast cancer, stage 2 Malignant neoplasm of breast (female), unspecified site documented in this encounter Care Teams Cook Fish And Chips Relationship Specialty Start Date End Date Mariluz Watts MD [address] [place] [address] PCP - General 08/22/10 documented as of this encounter
--- OUTSIDE RECORDS SUMMARY | 2024-08-11 17:13 | XMS_ITS | Encounter Summary ---
Author Organization [facility] [place] [address] Care Team Providers Care Robotics Testing Technician Name Role Phone Mariluz Watts MD Primary Care Provider [phone] Reason for Visit * Reason Comments Rosacea Encounter Details Date Type Department Care Team (Late st Contact Info) Description 02/01/2014 1:00 PM EDT Follow-Up Dermatology at [facility] [address] [place] [address] Angeles Ferro MD [facility] [address] [place] [address] Rosacea; SK (seborrheic keratosis); Sebaceous hyperplasia of [...] questions/concerns. Angeles Ferro MD Resident in Dermatology [facility] Patient seen and evaluated with staff cement mixer driver: Santo Iniguez MD Section of Dermatology [facility] Note initiated by: [place] LPN: I [...] Office [place] [address] Paula Harris PA [facility] [place] [address] 01/26/2025 9:50 AM EDT Appointment Mammography/[place] [address] Joan Deutsch, [facility] [place] [address] 01/26/2025 10:30 AM EDT Office [place] [address] Joan Deutsch, [facility] [place] [address] documented as of this encounter Visit Diagnoses Diagnosis Rosacea SK (seborrheic keratosis) Other seborrheic keratosis Sebaceous hyperplasia of face Other specified disease of sebaceous glands documented in this encounter Care Teams Robotics Testing Technician Relationship Specialty Start Date End Date Mariluz Watts MD [address] [place] [address] PCP - General 08/22/10 documented as of this encounter
--- OUTSIDE RECORDS SUMMARY | 2024-08-11 17:13 | XMS_ITS | Encounter Summary ---
[place] [address] Care Team Providers Care Optometric Technician Name Role Phone Mariluz Watts MD Primary Care Provider [phone] Encounter Details Date Type Department Care Team (Late st Contact Info) Description 12/21/2014 2:53 PM EDT - 12/21/2014 11:59 PM EDT Hospital [place] [address] Social History Tobacco Use Types Packs/Day Years [...] Refills Start Date End Date LACTOBAC CMB #6-[id number] ORAL Take 1 tablet by mouth daily. [...] rough spots on thighs. 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 02/02/14 400 g [...] PM EST Office [place] [address] Paula Harris PA [facility] GENERAL SURGERY [place], [place] [address] 01/26/2025 9:50 AM EDT Appointment Mammography/[place] [address] Joan Deutsch APRN [facility] [place] [address] 01/26/2025 10:30 AM EDT Office Visit General Surgery at [facility] [place] [place] [address] Joan Deutsch APRN [facility] [place] [address] documented as of this encounter Procedures Procedure [...] on filedocumented in this encounter Care Teams Optometric Technician Relationship Specialty Start Date End Date Mariluz Watts MD [address] [place] [address] PCP - General 08/22/10 documented as of this encounter
--- OUTSIDE RECORDS SUMMARY | 2024-08-11 17:13 | XMS_ITS | Encounter Summary ---
Author Organization [facility] [place] [address] Care Team Providers Care Student Services Rep Name Role Phone Mariluz Watts MD Primary Care Provider [phone] Reason for Visit * Reason Comments Osteoarthritis Encounter Details Date Type Department Care Team (Late st Contact Info) Description 08/19/2013 10:15 AM EST Follow-Up [place] [address] Scar Aviles II, [facility] [place] [address] Aromatase inhibitor-associated arthralgia (Primary Dx) Discharge Disposition: [...] and as her mother was the primary transmission repairer for herfather, she is now the primary transmission repairer for both parents. She had been planning [...] Office Visit General Surgery at [place] [phone] Paula Harris PA [facility] [place] [address] 01/26/2025 9:50 AM EDT Appointment Mammography/DXA at [place] [phone] Joan Deutsch APRN [facility] [place] [address] 01/26/2025 10:30 AM EDT Office Visit General Surgery at [place] [phone] Joan Deutsch, THERAPEUTIC DIETITIAN [facility] [place] [address] documented as of this encounter Visit Diagnoses Diagnosis Aromatase inhibitor-associated arthralgia- Primary Pain in joint, site unspecified documented in this encounter Care Teams Student Services Rep Relationship Specialty Start Date End Date Mariluz Watts MD [address] [place] [address] [address] [place] [address] PCP - General 08/22/10 documented as of this encounter
--- OUTSIDE RECORDS SUMMARY | 2024-08-11 17:13 | XMS_ITS | Encounter Summary ---
[place] [address] Care Team Providers Care Professor Of Psychology Name Role Phone Mariluz Watts MD Primary Care Provider [phone] Reason for Visit * Reason Comments Breast Cancer Encounter Details Date Type Department Care Team (Late st Contact Info) Description 07/02/2014 9:00 AM EDT Follow-Up Hematology [place] [address] Abrahan Merlos MD [facility] DR HEMATOLOGY/[place] [address] Breast cancer, stage 2, right; Osteopenia Discharge [...] anastrozole in April 2015. Abrahan Merlos MD plaster maker in Hematology-Oncology documented in this encounter Plan of Treatment Upcoming Encounters Date Type Department Care Team (Late st Contact Info) Description 11/16/2024 1:00 PM EST Office [place] [address] Paula Harris PA [facility] [place] [place] [address] 01/26/2025 9:50 AM EDT Appointment Mammography/[place] [address] Joan Deutsch FAMILY PROTECTION SPECIALIST [facility] [place] [place] [address] 01/26/2025 10:30 AM EDT Office [place] [address] Joan Deutsch FAMILY PROTECTION SPECIALIST [facility] [place] [place] [address] documented as of this encounter Results * Hepatic Function Panel (12/21/2014 1:27 PM EDT) Pathologist [facility] Protein, Total 7.0 6.1 - 8.0 gm/dL [...] unspecified documented in this encounter Care Teams Professor Of Psychology Relationship Specialty Start Date End Date Mariluz Watts MD [address] [facility] [place] [address] PCP - General 08/22/10 documented as of this encounter
--- OUTSIDE RECORDS SUMMARY | 2024-08-11 17:13 | XMS_ITS | Encounter Summary ---
Author Organization [facility] [place] [address] Care Team Providers Care Shut Off Worker Name Role Phone Mariluz Watts MD Primary Care Provider [phone] Reason for Referral * Physical Therapy (Routine) - Complete - Patient Will Schedule External Appt Specialty Diagnoses / Procedures Referred By John lyons Referred To Contact Physical Therapy Diagnoses S/P total hip arthroplasty Francheska Buchanan PA [facility] [place] [address] Referral ID Status Reason Start Date Expiration Date Visits Requested Visits Authorized [id number] Complete - Patient Will Schedule External Appt Evaluate and Treat 12/14/2013 06/12/2014 12 12 Reason for Visit * Reason Comments Follow Up Surgery s/p left ant arslan dos 07/22/12 s/p b/l arslan Encounter Details Date Type Department Care Team (Late st Contact Info) Description 12/14/2013 8:30 AM EDT Office [place] [address] CLINIC, DR CONV S/P Left Anterior ARSLAN- [...] Patient Name: Diamond Gaming : 1945 MR#: [id number] Date of Visit: 12/14/2013 Date: March 06, 2005 Surgeon: Kian Ervin MD Surgical Procedure Performed: Right total hip arthroplasty, cementless, [id number]-am-rftqskl Components Used: [place] Trident 52 shell outer diameter Femoral head 32-4 mm Nicole Accolade Femoral stem size 4, 127 deg Date: 07/22/2012 Surgeon: Kian Ervin MD Surgical Procedure Performed: Injection left hip with 10 cc marcaine 0.25% with epi, into skin and subcutaneous tissues (CPT [id number]) left total hip arthroplasty, anterior Hueter approach with Hazen table (CPT code 48282) Left hip intraoperative radiologic examination (CPT code 45501) Amicar infusion (5 g IV load, then 1g/hr x 3 hrs) Components Used: [place] Accolade stem, size 4, 127 degrees Trident [...] use. Lives alone with her dog, an Jordanian pratt. 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. Physical Exam: Filed Vitals: 12/14/13 0844 [...] PM EST Office Visit General Surgery at [place] [phone] Paula Harris PA [facility] [place] [address] 01/26/2025 9:50 AM EDT Appointment Mammography/[place] [address] Joan Deutsch APRN [facility] [place] [address] 01/26/2025 10:30 AM EDT Office [place] [address] Joan Deutsch APRN [facility] [place] [address] Scheduled Referrals Name Type Priority Associated Diagnoses [...] means documented in this encounter Care Teams Shut Off Worker Relationship Specialty Start Date End Date Mariluz Watts MD [address] [place] [address] PCP - General 08/22/10 documented as of this encounter
--- OUTSIDE RECORDS SUMMARY | 2024-08-11 17:13 | XMS_ITS | Encounter Summary ---
Author Organization [facility] [place] [address] Care Team Providers Care Director Of Enterprise Strategy Name Role Phone Mariluz Watts MD Primary Care Provider [phone] Reason for Visit * Reason Comments Left Hip Pain hip pain Left Knee Pain knee pain Encounter Details Date Type Department Care Team (Late st Contact Info) Description 03/01/2014 8:30 AM EDT Office [place] [address] Alexandro Santiago, PA [facility] [place] [address] S/P Left Anterior ARSLAN- 07/22/12 (Dr. Ervin) [...] PM EST Office [place] [address] Paula Harris PA [facility] [place] [address] 01/26/2025 9:50 AM EDT Appointment Mammography[place] [address] Joan Deutsch APRN [facility] [place] [address] 01/26/2025 10:30 AM EDT Office [place] [address] Joan Deutsch APRN [facility] [place] [address] documented as of this encounter Results * [...] pre- procedural time-out was performed as per [facility] protocol. ?? The patient was placed supine [...] pre- procedural time-out was performed as per [facility] protocol. The patient was placed supine on [...] means documented in this encounter Care Teams Director Of Enterprise Strategy Relationship Specialty Start Date End Date Mariluz Watts MD [address] [email or web address] 1 [place] [address] PCP - General 08/22/10 documented as of this encounter
--- OUTSIDE RECORDS SUMMARY | 2024-08-11 17:13 | XMS_ITS | Encounter Summary ---
[place] [address] Care Team Providers Care Retail Sales Associate Name Role Phone Mariluz Watts MD Primary Care Provider [phone] Reason for Visit * Reason Onset Date Comments Questions 02/26/2014 Encounter Details Date Type Department Care Team (Late st Contact Info) Description 02/26/2014 [place] [address] Kian Ervin MD [address] [place] [address] Questions Social History Tobacco Use Types Packs/Day [...] 03/01/14 since she has to come from [facility]. Please call her back at [phone]. documented in this encounter Plan of Treatment Upcoming Encounters Date Type Department Care Team (Late st Contact Info) Description 11/16/2024 1:00 PM EST Office [place] [address] Paula Harris PA [facility] [place] [address] 01/26/2025 9:50 AM EDT Appointment Mammography/[place] [address] Joan Deutsch APRN [facility] [place] [address] 01/26/2025 10:30 AM EDT Office [place] [address] Joan Deutsch APRN [facility] [place] [address] documented as of this encounter Results * XR Joint Team alignment AP LAT Schuss [place] (03/01/2014 8:56 AM EDT) Anatomical Region Laterality [...] leg documented in this encounter Care Teams Retail Sales Associate Relationship Specialty Start Date End Date Mariluz Watts MD [address] [place] [address] PCP - General 08/22/10 documented as of this encounter
--- OUTSIDE RECORDS SUMMARY | 2024-08-11 17:13 | XMS_ITS | Encounter Summary ---
Author Organization [facility] [place] [address] Care Team Providers Care C 40A Crew Chief Name Role Phone Mariluz Watts MD Primary Care Provider [phone] Encounter Details Date Type Department Care Team (Late st Contact Info) Description 07/11/2015 - 07/11/2015 12:04 AM EDT Hospital Encounter Radiology Library at [facility] [place] [address] Abrahan Merlos MD [facility] HEMATOLOGY/[place] [address] Social History Tobacco Use Types Packs/Day Years [...] Refills Start Date End Date LACTOBAC CMB #[id number] ORAL Take 1 tablet by mouth daily. [...] PM EST Office [place] [address] Paula Harris PA [facility] [place] [address] 01/26/2025 9:50 AM EDT Appointment Mammography/DXA at [place] [address] Joan Deutsch [facility] [place] [address] 01/26/2025 10:30 AM EDT Office [place] [address] Joan Deutsch, [facility] [place] [address] documented as of this encounter Procedures Procedure [...] filedocumented in this encounter Care Teams C 40A Crew Chief Relationship Specialty Start Date End Date Mariluz Watts MD [address] [place] [address] [address] [facility] 1 [place] [address] PCP - General 08/22/10 documented as of this encounter
--- OUTSIDE RECORDS SUMMARY | 2024-08-11 17:13 | XMS_ITS | Encounter Summary ---
[place] [address] Care Team Providers Care Digital Marketing Assistant Name Role Phone Mariluz Watts MD Primary Care Provider [phone] Encounter Details Date Type Department Care Team (Late st Contact Info) Description 07/02/2014 Orders Only Hematology [place] [address] Abrahan Merlos MD [facility] DR HEMATOLOGY/ONCOL[place] [address] Breast cancer, stage 2, right (Primary Dx) [...] PM EST Office [place] [address] Paula Harris PA [facility] [place] [address] 01/26/2025 9:50 AM EDT Appointment Mammography/DXA at [place] [phone] Joan Deutsch, [facility] [place] [address] 01/26/2025 10:30 AM EDT Office [place] [address] Joan Deutsch, [facility] GENER[place] [address] documented as of this encounter Visit Diagnoses Diagnosis Breast cancer, stage 2, right- Primary documented in this encounter Care Teams Digital Marketing Assistant Relationship Specialty Start Date End Date Mariluz Watts MD [address] [facility] [address] [place] [address] PCP - General 08/22/10 documented as of this encounter
--- OUTSIDE RECORDS SUMMARY | 2024-08-11 17:13 | XMS_ITS | Encounter Summary ---
[place] [address] Care Team Providers Care Mysql Database Administrator Name Role Phone Mariluz Watts MD Primary Care Provider [phone] Encounter Details Date Type Department Care Team (Late st Contact Info) Description 02/24/2014 Telephone [place] [address] Kian Ervin MD [address] [place] [address] Social History Tobacco Use Types Packs/Day Years [...] ABOUT THIS. SHE CAN BE REACHED AT [phone]. On a scale of 1 to 10, where would you rate your pain: N/A I will noa this as urgent, the nurses continuously monitor their messages and will call as soon asthey are able. documented in this encounter Plan of Treatment Upcoming Encounters Date Type Department Care Team (Late st Contact Info) Description 11/16/2024 1:00 PM EST Office Visit [place] [phone] Paula Harris PA [facility] [place] [address] 01/26/2025 9:50 AM EDT Appointment Mammography/[place] [phone] Joan Deutsch APRN [facility] [place] [address] 01/26/2025 10:30 AM EDT Office Visit [place] [phone] Joan Deutsch APRN [facility] [place] [address] documented as of this encounter Visit Diagnoses Not on filedocumented in this encounter Care Teams Mysql Database Administrator Relationship Specialty Start Date End Date Mariluz Watts MD [address] [place] [address] PCP - General 08/22/10 documented as of this encounter
--- OUTSIDE RECORDS SUMMARY | 2024-08-11 17:13 | XMS_ITS | Encounter Summary ---
[place] [address] Care Team Providers Care Windows Mobile Developer Name Role Phone Mariluz Watts MD Primary Care Provider [phone] Reason for Visit * Reason Onset Date Comments Other 08/19/2013 Encounter Details Date Type Department Care Team (Late st Contact Info) Description 08/19/2013 Telephone Hematology [place] [address] Gemini Felton RN Other Social History Tobacco [...] RN - 08/19/2013 3:28 PM EST Called [facility] outpatient pharmacy to confirm that they received a script for anastrozole 1mg dispense#90 with 3 refills in May. Called Diamond to inform her that she has refills and should call [facility] Outpatient pharmacy. * Telephone Encounter - Gemini Felton RN - 08/19/2013 3:20 PM EST Message copied by GEMINI FELTON on SatAug 19, 2013 3:20 PM ------ Message from: HATTIE RODRIGUEZ Created: SatAug 19, 2013 8:18 AM Regarding: anastrozole refill Anastrozole, 1mg, 90 day, to [facility] and [facility] will mail to her home. [phone]. Called pharmacy script was filled today. Called Diamond to inform her that on 06/12/13 her script was generated for one year. Dispense #90 with 3 refills. [facility] Outpatient pharmacy filled a refill today. documented in this encounter Plan of Treatment Upcoming Encounters Date Type Department Care Team (Late st Contact Info) Description 11/16/2024 1:00 PM EST Office Visit General Surgery at [place] [phone] Paula Harris PA [facility] [address] 01/26/2025 9:50 AM EDT Appointment Mammography/DXA at [place] [phone] Joan Deutsch APRN [facility] [address] 01/26/2025 10:30 AM EDT Office [place] [phone] Joan Deutsch APRN [facility] [address] documented as of this encounter Visit Diagnoses Not on filedocumented in this encounter Care Teams Windows Mobile Developer Relationship Specialty Start Date End Date Mariluz Watts MD [address] [place] [address] PCP - General 08/22/10 documented as of this encounter
--- OUTSIDE RECORDS SUMMARY | 2024-08-11 17:13 | XMS_ITS | Encounter Summary ---
[place] [address] Care Team Providers Care Slasher Tender Name Role Phone Mariluz Watts MD Primary Care Provider [phone] Reason for Visit * Reason Onset Date Comments Questions 07/07/2014 Encounter Details Date Type Department Care Team (Late st Contact Info) Description 07/07/2014 Telephone [place]iation [place] [address] Kamala Mello, RN Questions Social History Tobacco [...] from a 07/25/12 that a PA from [facility] [place] - she has aortic sclerosis, stage II dysfunction. She will call there for copy of report and follow up with her PCP. documented in this encounter Plan of Treatment Upcoming Encounters Date Type Department Care Team (Late st Contact Info) Description 11/16/2024 1:00 PM EST Office Visit General Surgery at [place] [phone] Paula Harris PA [facility] [place] [address] 01/26/2025 9:50 AM EDT Appointment Mammography/[place] [phone] Joan Deutsch FINANCIAL COMPLIANCE EXAMINER [facility] [place] [address] 01/26/2025 10:30 AM EDT Office [place] [phone] Joan Deutsch FINANCIAL COMPLIANCE EXAMINER [facility] [place] [address] documented as of this encounter Visit Diagnoses Not on filedocumented in this encounter Care Teams Slasher Tender Relationship Specialty Start Date End Date Mariluz Watts MD [address] [place] [address] PK[address] [facility] 1 [place] [address] PCP - General 08/22/10 documented as of this encounter
--- OUTSIDE RECORDS SUMMARY | 2024-08-11 17:13 | XMS_ITS | Encounter Summary ---
Author Organization [facility] [place] [address] Care Team Providers Care Band Saw Marker Name Role Phone Mariluz Watts MD Primary Care Provider [phone] Reason for Visit * Reason Comments Nephrolithiasis * Auth/Cert Specialty Diagnoses / Procedures Referred By John lyons Referred To Contact Diagnoses Pain Procedures CYSTO, STENT PLACEMENT Referral ID Status Reason Start Date Expiration Date Visits Re quested Visits Authorized [id number] 1 1 Encounter Details Date Type Department Care Team (Late st Contact Info) Description 07/11/2015 5:00 PM EDT - 07/11/2015 6:20 PM EDT Surgery [place] [address] Stephen Chauhan III, MD [facility] [place] [address] CYSTO, STENT PLACEMENT (WRVU 2.82) Social History [...] epi, into skin and subcutaneous tissues (CPT [id number]) left total hip arthroplasty, anterior Hueter approach with Jasper table (CPT code 98411) Left hip intraoperative radiologic examination (CPT code 14631) Amicar infusion (5 g IV load, then 1g/hr x 3 hrs) Components Used: Nicole Accolade stem, size 4, 127 degrees Trident PSLcup, 52 mm, solid 32 mm ID, alumina 32-4 mm alumina head ??? Hip pain ??? S/P Right ARSLAN 03/06/2005 ([facility]) SURGERY DATE: 03/06/2005 ARCADIO STEINER, NICK Angel Surgical Procedure Performed: Right total hip arthroplasty, cementless, [id number] Components Used: Nicole Trident 52 shell outer [...] the past, who presents in transfer from [facility] with a 3-4 mm mid left ureteral [...] which prompted her to present to the [facility] ED early this morning. There, labs were [...] Hospital Course: Ms. Gaming was admitted to [facility] 07/11/15. A stent was placed in her Left ureter the same day. She received IV antibiotics for 2 days and when her urine culture results from [facility] returned she was transitioned to a course [...] will pick pack worker both scripts 02/02/14 Quantity: 400 g Refills: [...] pain medications The number for questions is [phone] before 5 PM weekdays and [phone] after 5 PM and weekends. Activity level: [...] stent removal in the office. Please call [phone] if you do not receive your appointment. [...] Discharge References/Attachments: Discharge References/Attachments KIDNEY STONE DIET (MOROCCAN) Electronically Signed By: HARSHA VENTURA MD 07/13/2015 documented in this encounter Discharge Instructions * Patient Instructions* Harsha Ventura MD - 07/12/2015 12:13 PM EDT Call your doctor for: ??? fevers greater than 101 ??? severe nausea or vomiting ??? increasing pain not controlled by pain medications The number for questions is [phone] before 5 PM weekdays and [phone] after 5 PM and weekends. Activity level: [...] stent removal in the office. Please call [phone] if you do not receive your appointment. [...] through Care Everywhere. * KIDNEY STONE DIET (MOROCCAN) documented in this encounter Medications at Time of Discharge Medication Sig Dispensed Refills Start Date End Date LACTOBAC CMB #[id number] ORAL Take 1 tablet by mouth daily. [...] team. No discharge needs identified atthis time. Crown And Bridge Technician remains available as needed for coordination of care and discharge planning.prior to discharge. RN to review instructions, medication,y fluid intake, activity and f/u appointment prior to discharge.SOLITARIO MEYERS RN 07/13/2015 * Harsha Ventura MD - 07/12/2015 7:11 AM EDT Patient Daily Progress Note Date: 07/12/2015 Patient: Diamond Gaimng Attending: STEPHEN CHAUHAN III, EINAR F Admit Date: 07/11/2015 Hospital Day: 2 Problem List: There are no hospital problems to display for this patient. Hospital Course: Ms. Gaming is a 69 yo WF with a PMH of nephrolithiasis transferred to [facility] with a 3-4mm L ureteral stone, mild [...] code, floor status, anticipate discharge home soon. HARHSA VENTURA MD 07/12/2015 * Julieta Montgomery RN - 07/11/2015 9:40 PM EDT Report rec'd from Dafter in PACU. Pt transferred to unit and [...] the past, who presents in transfer from [facility] with a 3-4 mm mid left ureteral [...] which prompted her to present to the [facility] ED early this morning. There, labs were [...] Procedure Date: 08/18/2006 ??? Created by interface [id number] Procedure Date: 01/27/2007 ??? Created by interface [...] >4.0CM, TRUNK performed by TIRSO CHAUDHARI at [facility] MAIN OR ??? Pro colonoscopy, diagnostic 02/29/2012 COLONOSCOPY, DIAGNOSTIC performed by RAJAT KUO at [facility] ENDOSCOPY ??? Pro total hip arthroplasty 07/22/2012 @TOTAL HIP ARTHROPLASTY, ANTERIOR APPROACH performed by NICK ERVIN at [facility] MAIN OR Social History History [...] 159 Cultures: Blood and urine cultures at [facility] and [facility] pending Imaging: CT abd/pelvis 07/11/2015: 3-4 mm [...] a 69 y.o. female who presents to [facility] with infected obstructing L renal stone. History [...] HPI 69-year-old female presents in transfer from [facility] with left-sided nephrolithiasis and transient hypotension with [...] She is not a diabetic. Presented to [facility] CT scan of the abdomen was performed [...] EDT Office of Care Management (OCM) / Crown And Bridge Technician(CM)/ Initial Assessment Discussed patient with Provider Team and in multidisciplinary discharge-planning rounds. Reviewed record and interviewed patient. Introduced/reviewed CM role and services accepted. REASON for HOSPITALIZATION: Ms. Gaming is a 69 yo WF with a PMH of nephrolithiasis transferred to [facility] with a 3-4mm L ureteral stone, mild hydronephrosis, positive UA, and questionable urosepsisI. IVF, IV Zosyn q8, flomax, oxycodone, flagyl/lac-hydrin bid topical, nexium, celexa, bowel meds, Vit D3,I&O, PMH See H&P PREVIOUS FUNCTIONAL STATUS: Independent CURRENT FUNCTIONAL STATUS:Bedrest, OON chair/ambulate w staff SOCIAL / FAMILY SUPPORTS:, 69 year old female residing in [place], [place] and lists Deidra Renée and Willy Gaming as her contacts . ADVANCE DIRECTIVES: On file. Deidra is the primary and sole agent. HEALTH /PRESCRIPTION COVERAGE:Medicare A/B, [employer] with prescription coverage with co-pays. CURRENT HOME/COMMUNITY SERVICES/EQUIPMENT: DME:None Home Health Agency:None Other:None INSTITUTIONAL RESEARCH DIRECTOR REFERRAL: To be determined. PRIMARY CARE PHYSICIAN: MARILUZ WATTS MD (General) [address] [place] [address] POTENTIAL DISCHARGE NEEDS: ?VNA PATIENT/FAMILY EDUCATION NEEDS: [...] Operative Note Patient Name: Diamond Gaming : [id number] MR#: [id number] Case Date: 07/11/2015 Surgeon: Surgeon(s) and Role: [...] condition. Jennifer Suresh MD Urology PGY-2 Pager: [phone] Associated attestation - Stephen Chauhan III, MD - 07/14/2015 1:29 PM EDT Attestation: Case Date: 07/11/2015 I was present and I participated during the entire procedure (does not need to include opening and closing). Stephen Chauhan III, MD 07/14/2015 * Brief Op Note - Jennifer Suresh MD - 07/11/2015 6:31 PM EDT Brief Operative Note Patient Name: Diamond Gaming : [id number] MR#: [id number] Case Date: 07/11/2015 Surgeon: Surgeon(s) and Role: [...] 1:59 PM EDT Arrived via EMS from [facility] due to Lt obstructed renal calculi, chills [...] PM EST Office [place] [phone] Paula Harris PA [facility] [place] [address] 01/26/2025 9:50 AM EDT Appointment Mammography/[place] [phone] Joan Deutsch APRN [facility] [place] [address] 01/26/2025 10:30 AM EDT Office [place] [phone] Joan Deutsch SIGN WRITER HAND [facility] [place] [address] Pending Results Name Type Priority Associated Diagnoses Date /Time FILM LIBRARY-FLUORO OR [id number] ONL Imaging Routine 07/11/2015 7:1 8 PM EDT Scheduled Orders Name Type Priority Associated Diagnoses Orde r Schedule FILM LIBRARY-FLUORO OR [id number] ONL Imaging Routine Once PRN (f or Radiant use) for 1 Occurrences starting 07/11/2015 until 07/11/2015 documented as of this encounter Procedures Procedure Name Priority Date/Time Associated Diagnosis Comments IMPLANTABLE DEVICES SCAN 015 12:00 AM EDT LEGAL SPECIALIST SCAN 07/14/2015 12:00 AM EDT HEMOGRAM Routine [...] SCAN EXT O RDR/RSLT * SCAN DOC: LEGAL SPECIALIST (07/14/2015 12:00 AM EDT) Anatomical Region Laterality [...] MD HEMATOLOGY ORDERA LIANA Performing Organization Address [facility] Co de Phone Number CERNER MANISHAENNIUM * [...] MD HEMATOLOGY ORDERA BLEDenisa Performing Organization Address [facility]/ZIP Co de Phone Number CERNER MANISHAENNIUM * Basic Metabolic Panel (non-fasting) (07/13/2015 2:15 AM EDT) Glucose 100 65 - 199 mg/dL CERNER MILLENNIUM Comment:Diabetes: >=200 mg/d L plus symptoms Blood Urea Nitrogen 15 8 - 18 mg/dL CERNER MILLENNIUM Creatinine 0.83 0.70 - 1.20 mg/dL CERNER MILLENNIUM Comment: Please note that the pediatric reference intervals supplied above were not validated at [facility]. Results from pediatric patients should [...] the following links into your internet browser. [email or web address] Blood specimen (specimen) 07/13/2015 2:15 AM EDT [...] Panel (non-fasting) (07/12/2015 3:03 AM EDT) Pathologist [facility] Glucose 120 65 - 199 mg/dL CERNER MILLENNIUM Comment:Diabetes: >=200 mg/d L plus symptoms Blood Urea Nitrogen 11 8 - 18 mg/dL CERNER MILLENNIUM Creatinine 0.55(L) 0.70 - 1.20 mg/dL CERNER MILLENNIUM Comment: Please note that the pediatric reference intervals supplied above were not validated at [facility]. Results from pediatric patients should [...] the following links into your internet browser. [email or web address] Blood specimen (specimen) 07/12/2015 3:03 AM EDT 07/12/2015 3:17 AM EDT Narrative Resulting Agency Comment Spec In Lab Stephen Chauhan III, MD CHEMISTRY ORDERAB LES Performing Organization Address [facility] de Phone Number VALERIE TOPETE * L-Lactate2 Whole Blood (07/11/2015 3:33 PM EDT) Lactate WB 1.6 mmol/L VALERIE TOPETE Blood specimen (specimen) 07/11/2015 3:33 PM EDT 07/11/2015 3:33 PM EDT Emergency Dept CHEMISTRY ORDERABLE S Performing Organization Address [facility] Phone Number VALERIE TOPETE * Red Hold (07/11/2015 3:00 PM EDT) Red Hold Sample in lab. VALERIE TOPETE Blood specimen (specimen) Venous Draw / Unknown 07/11/2015 3:00 PM EDT 07/11/2015 3:29 PM EDT Clarence Monet MD CHEMISTRY ORDERABLES Performing Organization Address [facility] Phone Number VALERIE TOPETE * Osborne [...] Monet MD CHEMISTRY ORDERABLES Performing Organization Address City/[facility]/ZIP Co de Phone Number VALERIE MAYERIUM * Blue Tube HOLD (07/11/2015 3:00 PM EDT) Blue Hold Sample in lab. VALERIE DYERENNIUM Blood specimen (specimen) Venous Draw / Unknown 07/11/2015 3:00 PM EDT 07/11/2015 3:28 PM EDT Clarence Monet MD HEMATOLOGY ORDERABLE S Performing Organization Address City/[facility] Co de Phone Number VALERIE MAYERIUM * [...] ORDERABLE S Performing Organization Address [facility] Co de Phone Number VALERIE TOPETE * (ABNORMAL) Creatinine (07/11/2015 3:00 PM EDT) Creatinine 0.57(L) 0.70 - 1.20 mg/dL [facility] MILLENNIUM Comment: Please note that the pediatric reference intervals supplied above were not validated at [facility]. Results from pediatric patients should be interpreted in conjunction to the patient's age, height and muscle mass. Est Glomerular Filtration Rate >60 >=60 [facility] MILLENNIUM Comment: This estimated GFR (eGFR) value [...] the following links into your internet browser. [email or web address] Blood specimen (specimen) 07/11/2015 3:00 PM EDT 07/11/2015 3:27 PM EDT Narrative Resulting Agency Comment Spec In Lab Clarence Monet MD CHEMISTRY ORDERABLES Performing Organization Address [facility] de Phone Number VALERIE TOPETE * BUN (07/11/2015 3:00 PM EDT) Blood Urea Nitrogen 15 8 - 18 mg/dL [facility] [employer] [facility] Blood specimen (specimen) 07/11/2015 3:00 PM EDT 07/11/2015 3:27 PM EDT Narrative Resulting Agency Comment Spec In Lab Clarence Monet MD CHEMISTRY ORDERABLES Performing Organization Address [facility] Co de Phone Number VALERIE TOPETE * [...] Monet MD CHEMISTRY ORDERABLES Performing Organization Address [facility] Co de Phone Number [facility] MILLENNIUM * Urine culture Clean Catch Urine (07/11/2015 2:00 PM EDT) Pathologist [facility] Urine Culture No growth (Less than 1,000 cfu/ml). CERNER MILLENNIUM Urine specimen obtained by clean catch procedure (specimen) 07/11/2015 2:00 PM EDT 07/11/2015 4:08 PM EDT Narrative Resulting Agency Comment Spec In Lab Clarence Monet MD MICROBIOLOGY - GENER AL ORDERABLES Performing Organization Address [facility] Co de Phone Number [facility] MILLENNIUM * (ABNORMAL) Urinalysis with reflex Culture [...] Urine Dipstick Clear Clear CERNER MILLENNIUM Specific [place] Urine Automated 1.016 1.002 - 1.030 CERNER [...] for result report. Stephen Chauhan III, MD [facility] FILM LIBRARY ORDERABLES documented in this encounter [...] Sat07/11/15 at 1656, Administer over 4 Hours, bus cleaner to OR, Indication for (Active or Suspected): [...] Routine documented in this encounter Care Teams Band Saw Marker Relationship Specialty Start Date End Date Mariluz Watts MD [address] [facility] [address] [place] [address] PCP - General 08/22/10 documented as of this encounter
--- OUTSIDE RECORDS SUMMARY | 2024-08-11 17:13 | XMS_ITS | Encounter Summary ---
Author Organization [facility] [place] [address] Care Team Providers Care Swimming Coach Or Instructor Name Role Phone Mariluz Watts MD Primary Care Provider [phone] Reason for Visit * Reason Comments Follow-up Encounter Details Date Type Department Care Team (Late st Contact Info) Description 12/21/2014 4:30 PM EDT Follow-Up Hematology [place] [address] Abrahan Merlos MD [facility] DR HEMATOLOGY/[place] [address] Breast cancer, stage 2, right Discharge Disposition: [...] her, and she is now packing up [place]. She has a father with dementia. She [...] in followup in May2015. Abrahan Merlos MD poultry farmworker in Hematology-Oncology documented in this encounter Plan of Treatment Upcoming Encounters Date Type Department Care Team (Late st Contact Info) Description 11/16/2024 1:00 PM EST Office [place] [address]-1000 Paula Harris PA [facility] [place] [address] 01/26/2025 9:50 AM EDT Appointment Mammography/[place] [address]-1000 Joan Deutsch SAP PORTAL DEVELOPER [facility] [place] [address] 01/26/2025 10:30 AM EDT Office [place] [phone] Joan Deutsch SAP PORTAL DEVELOPER [facility] [address] documented as of this encounter Procedures Procedure [...] In Lab Abrahan Merlos MD CHEMISTRY ORDERABLES [facility] documented in this encounter Visit Diagnoses Diagnosis Breast cancer, stage 2, right documented in this encounter Care Teams Swimming Coach Or Instructor Relationship Specialty Start Date End Date Mariluz Watts MD [address] [place] [address] PCP - General 08/22/10 documented as of this encounter
--- OUTSIDE RECORDS SUMMARY | 2024-08-11 17:13 | XMS_ITS | Encounter Summary ---
[place] [address] Care Team Providers Care Row Boss Name Role Phone Mariluz Watts MD Primary Care Provider [phone] Reason for Visit * Reason Comments Follow Up Surgery left ant sharmin 2 Encounter Details Date Type Department Care Team (Latest Contact Info) Description 07/13/2014 8:00 AM EDT Office [place] [address] Kian Ervin MD [address] [place] [address] Primary osteoarthritis of both knees (Primary Dx); [...] PM EST Office [place] [address] Paula Harris PA [facility] [place] [address] 01/26/2025 9:50 AM EDT Appointment Mammography/[place] [phone] Joan Deutsch APRN [facility] [place] [address] 01/26/2025 10:30 AM EDT Office [place] [address] Joan Deutsch APRN [facility] [place] [address] documented as of this encounter Visit Diagnoses Diagnosis Primary osteoarthritis of both knees- Primary Primary localized osteoarthrosis, lower leg H/O total hip arthroplasty, bilateral Hip flexor tendinitis, left documented in this encounter Care Teams Row Boss Relationship Specialty Start Date End Date Mariluz Watts MD [address] [place] [address] PCP - General 08/22/10 documented as of this encounter
--- OUTSIDE RECORDS SUMMARY | 2024-08-11 17:13 | XMS_ITS | Encounter Summary ---
Author Organization [facility] [place] [address] Care Team Providers Care Home Health Physical Therapist Name Role Phone Mariluz Watts MD Primary Care Provider [phone] Encounter Details Date Type Department Care Team (Late st Contact Info) Description 02/17/2014 10:30 AM EDT [place] [address] Scar Aviles [facility] [address] OA (osteoarthritis) (Primary Dx); Aromatase inhibitor use [...] 02/17/2014 10:35 AM EDT Body Mass Index 68721.6 02/17/2014 10:35 AM EDT documented in this [...] PM EST Office [place] [phone] Paula Harris PA [facility] [place] [address] 01/26/2025 9:50 AM EDT Appointment Mammography/[place] [address] Joan Deutsch APRN [facility] [place] [address] 01/26/2025 10:30 AM EDT Office [place] [address] Joan Deutsch APRN [facility] [place] [address] documented as of this encounter Visit Diagnoses Diagnosis OA (osteoarthritis)- Primary Osteoarthrosis, unspecified whether generalized or localized, unspecified site Aromatase inhibitor use Use of aromatase inhibitors documented in this encounter Care Teams Home Health Physical Therapist Relationship Specialty Start Date End Date Mariluz Watts MD [address] [place] [address] PCP - General 08/22/10 documented as of this encounter
--- OUTSIDE RECORDS SUMMARY | 2024-08-11 17:13 | XMS_ITS | Encounter Summary ---
Author Organization [facility] [place] [address] Care Team Providers Care Integration Solution Architect Name Role Phone Mariluz Watts MD Primary Care Provider Encounter Details Date Type Department Care Team (Latest Contact Info) Description 12/21/2014 1:21 PM EDT - 12/21/2014 11:59 PM EDT Hospital Encounter Hematology [place] [address] CLINIC, DR KATARINA Merlos, Abrahan Chavarria MD [facility] HEMATOLOGY/[place] [address] Discharge Disposition: Home Social History Tobacco Use [...] Refills Start Date End Date LACTOBAC CMB #0-[id number] ORAL Take 1 tablet by mouth daily. [...] to rough spots on thighs. 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 oyster picker both scripts 02/02/14 400 g 10 [...] Office [place] [address] Paula Harris PA [facility] [place] [address] 01/26/2025 9:50 AM EDT Appointment Mammography/[place] [address] Joan Deutsch, [facility] [place] [address] 01/26/2025 10:30 AM EDT Office [place] [address] Joan Deutsch, [facility] [place] [address] documented as of this encounter Visit Diagnoses Not on filedocumented in this encounter Care Teams Integration Solution Architect Relationship Specialty Start Date End Date Mariluz Watts MD [address] [place] [address] PCP - General 08/22/10 documented as of this encounter
--- OUTSIDE RECORDS SUMMARY | 2024-08-11 17:13 | XMS_ITS | Encounter Summary ---
[place] [address] Care Team Providers Care Cane Loader Name Role Phone Mariluz Watts MD Primary Care Provider [phone] Encounter Details Date Type Department Care Team (Late st Contact Info) Description 12/22/2013 12:04 PM EDT - 12/22/2013 11:59 PM EDT Hospital En[place] [address] Social History Tobacco Use Types Packs/Day Years [...] Refills Start Date End Date LACTOBAC CMB #7-[id number] ORAL Take 1 tablet by mouth daily. [...] PM EST Office [place] [address] Paula Harris PA [facility] [place] [address] 01/26/2025 9:50 AM EDT Appointment Mammography/[place] [address] Joan Deutsch APRN [facility] [place] [address] 01/26/2025 10:30 AM EDT Office [place] [address] Joan Deutsch APRN [facility] [place] [address] documented as of this encounter Procedures Procedure [...] on filedocumented in this encounter Care Teams Cane Loader Relationship Specialty Start Date End Date Mariluz Watts MD [address] [place] [address] PCP - General 08/22/10 documented as of this encounter
--- OUTSIDE RECORDS SUMMARY | 2024-08-11 17:13 | XMS_ITS | Encounter Summary ---
Author Organization [facility] [place] [address] Care Team Providers Care Cordwood Cutter Helper Name Role Phone Mariluz Watts MD Primary Care Provider [phone] Encounter Details Date Type Department Care Team (Latest Contact Info) Description 07/13/2014 7:18 AM EDT - 07/13/2014 11:59 PM EDT Hospital Encounter XRay at [address] [place] [address] CLINIC, Kian Stone MD [address] [place] [address] S/P Left Anterior ARSLAN- 07/22/12 (Dr. Ervin) [...] Refills Start Date End Date LACTOBAC CMB #9-[id number] ORAL Take 1 tablet by mouth daily. [...] to rough spots on thighs. 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 hot die picker both scripts 02/02/14 400 g 10 [...] PM EST Office [place] [address] Paula Harris PA [facility] [place] [address] 01/26/2025 9:50 AM EDT Appointment Mammography/[place] [address] Joan Deutsch, [facility] [place] [address] 01/26/2025 10:30 AM EDT Office [place] [address] Joan Deutsch, [facility] [place] [address] documented as of this encounter Procedures Procedure [...] means documented in this encounter Care Teams Cordwood Cutter Helper Relationship Specialty Start Date End Date Mariluz Watts MD [address] [facility] [place] [address] PCP - General 08/22/10 documented as of this encounter
--- OUTSIDE RECORDS SUMMARY | 2024-08-11 17:13 | XMS_ITS | Encounter Summary ---
[place] [address] Care Team Providers Care Buckle Strap Drum Operator Name Role Phone Mariluz Watts MD Primary Care Provider [phone] Reason for Visit * Reason Onset Date Comments Other 12/25/2013 Encounter Details Date Type Department Care Team (Late st Contact Info) Description 12/25/2013 [place] [address] Jesusita Valdes RN Other Social History Tobacco [...] just discontinuethe Prednisone. Will forward to Dr. Aivles. Let Diamond know not to discontinue at this time, await call back from myself or Dr. Aviles. Aware it will likely be Saturday before she hears back. documented in this encounter Plan of Treatment Upcoming Encounters Date Type Department Care Team (Late st Contact Info) Description 11/16/2024 1:00 PM EST Office [place] [address] Paula Harris PA [facility] [place] [address] 01/26/2025 9:50 AM EDT Appointment Mammography/[place] [address] Joan Deutsch APRN [facility] [place] [place] [address] 01/26/2025 10:30 AM EDT Office [place] [address] Joan Deutsch APRN [facility] [place] [place] [address] documented as of this encounter Visit Diagnoses Not on filedocumented in this encounter Care Teams Buckle Strap Drum Operator Relationship Specialty Start Date End Date Mariluz Watts MD [address] [place] [address] [address] [place] [address] PCP - General 08/22/10 documented as of this encounter
--- OUTSIDE RECORDS SUMMARY | 2024-08-11 17:13 | XMS_ITS | Encounter Summary ---
Author Organization [facility] [place] [address] Care Team Providers Care Processor Helper Name Role Phone Mariluz Watts MD Primary Care Provider Encounter Details Date Type Department Care Team (Latest Contact Info) Description 12/14/2013 7:51 AM EDT - 12/14/2013 11:59 PM EDT Hospital Encounter XRay at [address] [place] [address] H/O bilateral hip replacements Social History Tobacco [...] Refills Start Date End Date LACTOBAC CMB #[id number] ORAL Take 1 tablet by mouth daily. [...] Office Visit General Surgery at [place] [phone] Paula Harris PA [facility] [place] [address] 01/26/2025 9:50 AM EDT Appointment Mammography[place] [address] Joan Deutsch APRN [facility] [place] [address] 01/26/2025 10:30 AM EDT Office [place] [address] Joan Deutsch APRN [facility] [place] [address] documented as of this encounter Procedures Procedure [...] means documented in this encounter Care Teams Processor Helper Relationship Specialty Start Date End Date Mariluz Watts MD [address] [facility] 1 [place] [address] PCP - General 08/22/10 documented as of this encounter
--- OUTSIDE RECORDS SUMMARY | 2024-08-11 17:13 | XMS_ITS | Encounter Summary ---
Author Organization [facility] [place] [address] Care Team Providers Care Career Law Clerk Name Role Phone Mariluz Watts MD Primary Care Provider [phone] Reason for Visit * Reason Comments Follow-up Encounter Details Date Type Department Care Team (Late st Contact Info) Description 06/28/2015 8:00 AM EDT Follow-Up Hematology [place] [address] Abrahan Merlos MD [facility] DR HEMATOLOGY/[place] [address] Breast cancer, stage 2, right Discharge Disposition: [...] between the rib and the breast bone. [phone]. Next bone density in November 2016. documented [...] appointment with Coral Ly. Abrahan Merlos MD cook short order in Hematology-Oncology documented in this encounter Plan of Treatment Upcoming Encounters Date Type Department Care Team (Late st Contact Info) Description 11/16/2024 1:00 PM EST Office Visit General Surgery at [place] [phone] Paula Harris PA [facility] [place] [address] 01/26/2025 9:50 AM EDT Appointment Mammography/[place] [address] Joan Deutsch, [facility] [place] [address] 01/26/2025 10:30 AM EDT Office Visit General Surgery at [place] [phone] Joan Deutsch [facility] [place] [address] documented as of this encounter Visit Diagnoses Diagnosis Breast cancer, stage 2, right documented in this encounter Care Teams Career Law Clerk Relationship Specialty Start Date End Date Mariluz Watts MD [address] [place] [address] [address] [facility] 1 [place] [address] PCP - General 08/22/10 documented as of this encounter
--- OUTSIDE RECORDS SUMMARY | 2024-08-11 17:13 | XMS_ITS | Encounter Summary ---
[place] [address] Care Team Providers Care Cork Sorter Name Role Phone Mariluz Watts MD Primary Care Provider [phone] Reason for Visit * Reason Onset Date Comments Other 09/09/2013 Prednisone Weani ng Encounter Details Date Type Department Care Team (Late st Contact Info) Description 09/09/2013 [place] [address] Kimberly Ackerman RN Other (Prednisone Weaning) Social [...] for now and can be reached at [phone] Aviles needs to speak with her. documented in this encounter Plan of Treatment Upcoming Encounters Date Type Department Care Team (Late st Contact Info) Description 11/16/2024 1:00 PM EST Office Visit General Surgery at [place] [phone] Paula Harris PA [facility] [place] [address] 01/26/2025 9:50 AM EDT Appointment Mammography/[place] [address] Joan Deutsch APRN [facility] [place] [address] 01/26/2025 10:30 AM EDT Office [place] [address] Joan Deutsch APRN [facility] [place] [address] documented as of this encounter Visit Diagnoses Not on filedocumented in this encounter Care Teams Cork Sorter Relationship Specialty Start Date End Date Mariluz Watts MD [address] [facility] 1 [place] [address] PCP - General 08/22/10 documented as of this encounter
--- OUTSIDE RECORDS SUMMARY | 2024-08-11 17:13 | XMS_ITS | Encounter Summary ---
[place] [address] Care Team Providers Care Sign Fabricator Name Role Phone Mariluz Watts MD Primary Care Provider Reason for Visit * Reason Comments Follow Up Surgery Encounter Details Date Type Department Care Team (Late st Contact Info) Description 12/22/2013 1:45 PM EDT Follow-[place] [address] Bella Ly APRN [facility] [place] [address] History of breast cancer (Primary Dx) Discharge [...] carcinoma with lobular features Tumor Grade: Intermediate Alquhz-Crbez-Hviggiodkd Score: 7 Tubular Differentiation: 3 Mitotic Rate: [...] sentinel nodes: 2 (Specimen A - Right [place] node) No. positive for carcinoma: 1 (H&E) [...] PM EST Office [place] [address] Paula Harris PA [facility] GENERAL SURGERY [place], [place] [address] 01/26/2025 9:50 AM EDT Appointment Mammography[place] [address] Joan Deutsch, [facility] [place] [address] 01/26/2025 10:30 AM EDT Office [place] [address] Joan Deutsch, [facility] [place] [address] documented as of this encounter Visit Diagnoses Diagnosis History of breast cancer- Primary Personal history of malignant neoplasm of breast documented in this encounter Care Teams Sign Fabricator Relationship Specialty Start Date End Date Mariluz Watts MD [address] [place] [address] PCP - General 08/22/10 documented as of this encounter
--- OUTSIDE RECORDS SUMMARY | 2024-08-11 17:13 | XMS_ITS | Encounter Summary ---
[place] [address] Care Team Providers Care Commercial Ocean Clammer Name Role Phone Mariluz Watts MD Primary Care Provider [phone] Reason for Visit * Reason Comments Follow Up Surgery Encounter Details Date Type Department Care Team (Late st Contact Info) Description 12/21/2014 1:45 PM EDT Follow-[place] [address] Bella Ly APRN [facility] [place] [address] History of breast cancer Discharge Disposition: Home [...] carcinoma with lobular features Tumor Grade: Intermediate Ifkpfe-Puiqa-Zcnwmenxgi Score: 7 Tubular Differentiation: 3 Mitotic Rate: [...] sentinel nodes: 2 (Specimen A - Right [place] node) No. positive for carcinoma: 1 (H&E) [...] PM EST Office [place] [address] Paula Harris PA [facility] [place] [address] 01/26/2025 9:50 AM EDT Appointment Mammography/[place] [address] Joan Deutsch, [facility] [place] [address] 01/26/2025 10:30 AM EDT Office [place] [address] Joan Deutsch, [facility] [place] [address] documented as of this encounter Visit Diagnoses Diagnosis History of breast cancer Personal history of malignant neoplasm of breast documented in this encounter Care Teams Commercial Ocean Clammer Relationship Specialty Start Date End Date Mariluz Watts MD [address] [place] [address] PCP - General 08/22/10 documented as of this encounter
--- OUTSIDE RECORDS SUMMARY | 2024-08-11 17:13 | XMS_ITS | Encounter Summary ---
[place] [address] Care Team Providers Care Raschel Knitting Machine Operator Name Role Phone Mariluz Watts MD Primary Care Provider [phone] Reason for Visit * Reason Onset Date Comments Other 08/17/2013 Pt called fuentes black for follow appt with Dr. Ervin or an associate provider to discuss her left hip pain. S/P bilat ARSLAN by IMT. Encounter Details Date Type Department Care Team (Late st Contact Info) Description 08/17/2013 Telephone [place] [address] Bertha Zhu, RN Other (Pt called looking [...] PM EST Office [place] [address] Paula Harris PA [facility] [place] [address] 01/26/2025 9:50 AM EDT Appointment Mammography/DXA at [place] [phone] Joan Deutsch APRN [facility] [place] [address] 01/26/2025 10:30 AM EDT Office Visit General Surgery at [place] [phone] Joan Deutsch APRN [facility] [place] [address] documented as of this encounter Visit Diagnoses Not on filedocumented in this encounter Care Teams Raschel Knitting Machine Operator Relationship Specialty Start Date End Date Mariluz Watts MD [address] [facility] 1 [place] [address] PCP - General 08/22/10 documented as of this encounter
--- OUTSIDE RECORDS SUMMARY | 2024-08-11 17:13 | XMS_ITS | Encounter Summary ---
Author Organization [facility] [place] [address] Care Team Providers Care Ceramic Coater Machine Name Role Phone Mariluz Watts MD Primary Care Provider [phone] Encounter Details Date Type Department Care Team (Latest Contact Info) Description 12/22/2013 11:52 AM EDT - 12/22/2013 11:59 PM EDT Hospital Encounter [place]ematology [place] [address] CLINIC, DR KATARINA Merlos, Abrahan Chavarria MD [facility] HEMATOLOGY/[place] [address] Discharge Disposition: Home Social History Tobacco Use [...] Refills Start Date End Date LACTOBAC CMB #8-[id number] ORAL Take 1 tablet by mouth daily. [...] PM EST Office [place] [address] Paula Harris PA [facility] [place] [address] 01/26/2025 9:50 AM EDT Appointment Mammography[place] [address] Joan Deutsch APRN [facility] [place] [address] 01/26/2025 10:30 AM EDT Office [place] [address] Joan Deutsch, MANAGING CONSULTANT [facility] [place] [address] documented as of this encounter Visit Diagnoses Not on filedocumented in this encounter Care Teams Ceramic Coater Machine Relationship Specialty Start Date End Date Mariluz Watts MD [address] [place] [address] PCP - General 08/22/10 documented as of this encounter
--- OUTSIDE RECORDS SUMMARY | 2024-08-11 17:13 | XMS_ITS | Encounter Summary ---
Author Organization [facility] [place] [address] Care Team Providers Care Zoning Administrator Name Role Phone Mariluz Watts MD Primary Care Provider [phone] Encounter Details Date Type Department Care Team (Late st Contact Info) Description 11/25/2013 10:30 AM EST [place] [address] Scar Aviles II, [facility] [place] [address] Aromatase inhibitor-associated arthralgia (Primary Dx); OA (osteoarthritis) [...] PM EST Office [place] [address] Paula Harris, [facility] [place] [address] 01/26/2025 9:50 AM EDT Appointment Mammography/[place] [address] Joan Deutsch, [facility] [place] [address] 01/26/2025 10:30 AM EDT Office [place] [address] Joan Deutsch, [facility] [place] [address] documented as of this encounter Visit Diagnoses Diagnosis Aromatase inhibitor-associated arthralgia- Primary Pain in joint, site unspecified OA (osteoarthritis) Osteoarthrosis, unspecified whether generalized or localized, unspecified site documented in this encounter Care Teams Zoning Administrator Relationship Specialty Start Date End Date Mariluz Watts MD [address] [place] [address] PCP - General 08/22/10 documented as of this encounter
--- OUTSIDE RECORDS SUMMARY | 2024-08-11 17:13 | XMS_ITS | Encounter Summary ---
[place] [address] Care Team Providers Care Poultry Farm Laborer Name Role Phone Mariluz Watts MD Primary Care Provider [phone] Reason for Visit * Reason Comments Medication Refill Encounter Details Date Type Department Care Team (Late Contact Info) Description 08/19/2013 Refill Hematology [place] [address] Nhi Chadwick FRUIT DRYER [facility] DR HEMATOLOGY/[place] [address] Social History Tobacco Use Types Packs/Day Years [...] EST Office Visit [place] [address] Paula Harris PA [facility] [place] [address] 01/26/2025 9:50 AM EDT Appointment Mammography/[place] [address] Joan Deutsch, [facility] [place] [address] 01/26/2025 10:30 AM EDT Office Visit General Surgery at [place] [phone] Joan Deutsch, [facility] [place] [address] documented as of this encounter Visit Diagnoses Not on filedocumented in this encounter Care Teams Poultry Farm Laborer Relationship Specialty Start Date End Date Mariluz Watts MD [address] [facility] [facility] [place] [address] PCP - General 08/22/10 documented as of this encounter
--- OUTSIDE RECORDS SUMMARY | 2024-08-11 17:13 | XMS_ITS | Encounter Summary ---
Author Organization [facility] [place] [address] Care Team Providers Care Manufacturing Software Engineer Name Role Phone Mariluz Watts MD Primary Care Provider [phone] Encounter Details Date Type Department Care Team (Late st Contact Info) Description 03/01/2014 Orders [place] [address] Maddi Esparza, LICENSING ENGINEER Social History Tobacco Use Types Packs/Day Years [...] EST Office Visit [place] [address] Paula Harris, PA [facility] [place] [address] 01/26/2025 9:50 AM EDT Appointment Mammography/[place] [address] Joan Deutsch [facility] [place] [address] 01/26/2025 10:30 AM EDT Office Visit [place] [address] Joan Deutsch, [facility] [place] [address] documented as of this encounter Visit Diagnoses Not on filedocumented in this encounter Care Teams Manufacturing Software Engineer Relationship Specialty Start Date End Date Mariluz Watts MD [address] [place] [address] [address] [facility] 1 [place] [address] PCP - General 08/22/10 documented as of this encounter
--- OUTSIDE RECORDS SUMMARY | 2024-08-11 17:13 | XMS_ITS | Encounter Summary ---
Author Organization [facility] [place] [address] Care Team Providers Care Street Department Dispatcher Name Role Phone Mariluz Watts MD Primary Care Provider [phone] Encounter Details Date Type Department Care Team (Late st Contact Info) Description 03/01/2014 8:33 AM EDT - 03/01/2014 11:59 PM EDT Hospital Encounter XRay at [address] [place] [address] Left knee pain Social History Tobacco Use [...] Refills Start Date End Date LACTOBAC CMB #3-[id number] ORAL Take 1 tablet by mouth daily. [...] spots on thighs. 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 pick up worker both scripts 02/02/14 400 g 10 [...] Office [place] [address] Paula Harris PA [facility] [address] 01/26/2025 9:50 AM EDT Appointment Mammography/[place] [address] Kovatch, Joan L, [facility] [place] [address] 01/26/2025 10:30 AM EDT Office Visit General Surgery at [facility] [place] [address] Joan Deutsch [facility] [place] [address] documented as of this encounter Procedures Procedure Name Priority Date/Time Associated Diagnosis Comments XR JOINT TEAM ALIGNMENT AP LAT SCHUSS SKYLINE Routine 03/01/2014 8:56 AM EDT Left knee pain documented in this encounter Results * XR Joint Team alignment AP LAT Schuss [place] (03/01/2014 8:56 AM EDT) Anatomical Region Laterality [...] leg documented in this encounter Care Teams Street Department Dispatcher Relationship Specialty Start Date End Date Mariluz Watts MD [address] [facility] 1 [place] [address] PCP - General 08/22/10 documented as of this encounter
--- OUTSIDE RECORDS SUMMARY | 2024-08-11 17:13 | XMS_ITS | Encounter Summary ---
[place] [address] Care Team Providers Care Curing Oven Tender Name Role Phone Mariluz Watts MD Primary Care Provider [phone] Reason for Visit * Reason Onset Date Comments Other 07/22/2014 Encounter Details Date Type Department Care Team (Late st Contact Info) Description 07/22/2014 Telephone [place] [address] Kimberly Ackerman RN Other Social History Tobacco [...] Office Visit General Surgery at [place] [phone] Paula Harris PA [facility] [place] [address] 01/26/2025 9:50 AM EDT Appointment Mammography/[place] [address] Joan Deutsch APRN [facility] [place] [address] 01/26/2025 10:30 AM EDT Office [place] [address] Joan Deutsch APRN [facility] [place] [address] documented as of this encounter Visit Diagnoses Not on filedocumented in this encounter Care Teams Curing Oven Tender Relationship Specialty Start Date End Date Mariluz Watts MD [address] [place] [address] PCP - General 08/22/10 documented as of this encounter
--- OUTSIDE RECORDS SUMMARY | 2024-08-11 17:14 | XMS_ITS | Encounter Summary ---
Author Organization [facility] [place] [address] Care Team Providers Care Spray Pilot Name Role Phone Mariluz Watts MD Primary Care Provider [phone] Reason for Visit * Reason Comments Medication Refill Encounter Details Date Type Department Care Team (Late st Contact Info) Description 07/01/2013 Refill Dermatology at [facility] [address] [place] [address] Chayo Willingham MD [facility] [place] [address] Social History Tobacco Use Types Packs/Day Years [...] PM EST Office Visit General Surgery at [place] [phone] Paula Harris PA [facility] [place] [address] 01/26/2025 9:50 AM EDT Appointment Mammography/DXA at [place] [phone] Joan Deutsch APRN [facility] [place] [address] 01/26/2025 10:30 AM EDT Office Visit [place] [address] Joan Deutsch APRN [facility] [place] [address] documented as of this encounter Visit Diagnoses Not on filedocumented in this encounter Care Teams Spray Pilot Relationship Specialty Start Date End Date Mariluz Watts MD [address] [facility] 1 [place] [address] PCP - General 08/22/10 documented as of this encounter
--- OUTSIDE RECORDS SUMMARY | 2024-08-11 17:14 | XMS_ITS | Encounter Summary ---
[place] [address] Care Team Providers Care Cdl Service Technician Name Role Phone Mariluz Watts MD Primary Care Provider [phone] Reason for Visit * Reason Comments Medication Refill Encounter Details Date Type Department Care Team (Late Contact Info) Description 08/25/2012 Refill Hematology [place] [address] Nhi Chadwick ADULT SPECIALIST [facility] DR HEMATOLOGY/[place] [address] Social History Tobacco Use Types Packs/Day Years [...] PM EST Office [place] [address] Paula Harris PA [facility] [place] [address] 01/26/2025 9:50 AM EDT Appointment Mammography[place] [address] Joan Deutsch, [facility] [place] [address] 01/26/2025 10:30 AM EDT Office Visit General Surgery at [place] [phone] Joan Deutsch, [facility] [place] [address] documented as of this encounter Visit Diagnoses Not on filedocumented in this encounter Care Teams Cdl Service Technician Relationship Specialty Start Date End Date Mariluz Watts MD [address] [facility] [facility] 1 [place] [address] PCP - General 08/22/10 documented as of this encounter
--- OUTSIDE RECORDS SUMMARY | 2024-08-11 17:14 | XMS_ITS | Encounter Summary ---
[place] [address] Care Team Providers Care Audio Operator Name Role Phone Mariluz Watts MD Primary Care Provider [phone] Encounter Details Date Type Department Care Team (Late st Contact Info) Description 06/03/2013 12:54 PM EDT - 06/03/2013 11:59 PM EDT Hospital [place] [address] CLINIC, Mariluz Hidalgo MD [address] [place] [address] [address] [facility] 1 [place], [place] [address] Discharge Disposition: Home Social History Tobacco Use [...] Refills Start Date End Date LACTOBAC CMB #2-OFQ-[id number] ORAL Take 1 tablet by mouth daily. [...] 45 g 3 12/31/2012 02/01/2014 lactobac cmb #6-ifn-[id number] (PROBIOTIC & ACIDOPHILUS) 300-250 million cell-mg Cap [...] EST Office Visit [place] [address] Paula Harris PA [facility] [place] [address] 01/26/2025 9:50 AM EDT Appointment Mammography/[place] [address] Joan Deutsch APRN [facility] [place] [place] [address] 01/26/2025 10:30 AM EDT Office Visit [place] [address] Joan Deutsch APRN [facility] [place] [address] documented as of this encounter Procedures Procedure [...] of the clinical situation. (Reference-Emyk et al, [id number]) Findings: (prevalence in patients without low back pain), Diskdegeneration (decreased T2 signal, height loss, bulge) (91%), Disk T2-signal loss(83%), Disk height loss (56%), Disk bulge (64%), Disk protrusion (32%), Annular fissure (38%). Film and interpretation reviewed by the attending Mariluz Watts MD IMG MRI ORDERABLES documented in this encounter Visit Diagnoses Not on filedocumented in this encounter Care Teams Audio Operator Relationship Specialty Start Date End Date Mariluz Watts MD [address] [place] [address] PCP - General 08/22/10 documented as of this encounter
--- OUTSIDE RECORDS SUMMARY | 2024-08-11 17:14 | XMS_ITS | Encounter Summary ---
Author Organization [facility] [place] [address] Care Team Providers Care Linux Server Administrator Name Role Phone Mariluz Watts MD Primary Care Provider [phone] Reason for Visit * Reason Comments Follow Up Surgery Encounter Details Date Type Department Care Team (Late st Contact Info) Description 12/09/2012 9:45 AM EDT Follow-[place] [address] CLINIC, Bella Rose, [facility] [place] [address] Breast cancer (Primary Dx) Discharge Disposition: Home [...] carcinoma with lobular features Tumor Grade: Intermediate Kmlkgo-Nbvth-Jokkxbghrh Score: 7 Tubular Differentiation: 3 Mitotic Rate: [...] sentinel nodes: 2 (Specimen A - Right [place] node) No. positive for carcinoma: 1 (H&E) [...] EST Office [place] [address] Paula Harris PA [facility] [place] [address] 01/26/2025 9:50 AM EDT Appointment Mammography/[place] [address] Joan Deutsch APRN [facility] [place] [address] 01/26/2025 10:30 AM EDT Office Visit [place] [address] Joan Deutsch, GE [facility] [place] [address] documented as of this encounter Visit Diagnoses Diagnosis Breast cancer- Primary Malignant neoplasm of breast (female), unspecified site documented in this encounter Care Teams Linux Server Administrator Relationship Specialty Start Date End Date Mariluz Watts MD [address] [place] [address] PCP - General 08/22/10 documented as of this encounter
--- OUTSIDE RECORDS SUMMARY | 2024-08-11 17:14 | XMS_ITS | Encounter Summary ---
Author Organization [facility] [place] [address] Care Team Providers Care Lastex Thread Winder Name Role Phone Mariluz Watts MD Primary Care Provider [phone] Reason for Visit * Reason Comments Aftercare Of Tjr bilateral arslan 2011 Encounter Details Date Type Department Care Team (Latest Contact Info) Description 07/13/2013 2:50 PM EDT [place] [address] Nick Ruiz MD [address] [place] [address] Charity Norris APRN [facility] [place] [address] H/O bilateral hip replacements (Primary Dx); Psoas [...] this encounter Progress Notes * Charity Norris, CARD PLAYER - 07/13/2013 3:32 PM EDT Chief Complaint: Both hip ARSLAN. Annual appointment. Pertinent Surgical History: Date: Jul 22- Surgeon: Nick Ruiz MD Pre-operative diagnosis: Left hip osteoarthritis Body mass index is 35.35 kg/(m^2). Surgical Procedure Performed: Injection left hip with 10 cc marcaine 0.25% with epi, into skin and subcutaneous tissues (CPT [id number]) left total hip arthroplasty, anterior Hueter approach with [place] table (CPT code 85160) Left hip intraoperative radiologic examination (CPT code 88876) Amicar infusion (5 g IV load, then 1g/hr x 3 hrs) Components Used: [place] Accolade stem, size 4, 127 degrees Trident PSLcup, 52 mm, solid 32 mm ID, alumina 32-4 mm alumina head Bearing surface: ceramic on ceramic Complications: High EBL Type 1 calcar fracture SURGERY DATE: 03/06/2005 Surgeon: NICK RUIZ MD ([id number]) Date: March 06, 2005 Surgeon: Nick Ruiz MD Pre-operative diagnosis: Right hip osteoarthritis Surgical Procedure Performed: Right total hip arthroplasty, cementless, qjnnaig-qp-zttyegv Components Used: [place] Trident 52 shell outer diameter Femoral head 32-4 mm [place] Accolade Femoral stem size 4, 127 [...] the psoas tendon/bursa. Now followed by a tea plantation worker for multiple arthralgia. Began plaquenil therapy with some improvement in joint pain and systemic complaints. However, She did develop a rash from the plaquenil therefore had to stop this DMARD. She is following with her Dining Room Attendant in regards to follow for treatment options. 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 No other reported injuries or infections . Baseline numbness and tingling in feet. Having foot surgery by Dr. Kong for a tendon problems. + dupuytren's contractures in hands and is anxious about crutch use. Has not investigated gibraltarian crutches or a scooter. No other complaints [...] Office Visit General Surgery at [place] [phone] Paula Harris PA [facility] [place] [address] 01/26/2025 9:50 AM EDT Appointment Mammography[place] [address] Joan Deutsch APRN [facility] [place] [address] 01/26/2025 10:30 AM EDT Office Visit General Surgery at [place] [phone] Joan Deutsch APRN [facility] [place] [address] documented as of this encounter Visit Diagnoses Diagnosis H/O bilateral hip replacements- Primary Hip joint replacement by other means Psoas tendinitis Enthesopathy of hip region Physical deconditioning Debility, unspecified documented in this encounter Care Teams Lastex Thread Winder Relationship Specialty Start Date End Date Mariluz Watts MD [address] [place] [address] PCP - General 08/22/10 documented as of this encounter
--- OUTSIDE RECORDS SUMMARY | 2024-08-11 17:14 | XMS_ITS | Encounter Summary ---
Author Organization [facility] [place] [address] Care Team Providers Care Electric Sign Assembler Name Role Phone Mariluz Watts MD Primary Care Provider [phone] Reason for Visit * Reason Comments Right Foot Pain pain X5 years Encounter Details Date Type Department Care Team (Late st Contact Info) Description 05/22/2013 9:45 AM EDT Office [place] [address] Morgan Kong MD [facility] [place] [address] Ventura Richards PA [facility] [address] Arthritis of right foot (Primary Dx) Discharge [...] NAME: Diamond Gaming AGE: 67 y.o. MR#: [id number] DATE OF VISIT: 05/22/2013 DATE OF INJURY/ONSET: [...] sural, deep peroneal, superficial peroneal nerve distributions. [place] Reece Monofilament 5.07 RADIOLOGICAL STUDIES: I independent [...] PM EST Office [place] [address] Paula Harris PA [facility] [place] [address] 01/26/2025 9:50 AM EDT Appointment Mammography/[place] [address] Joan Deutsch APRN [facility] [place] [address] 01/26/2025 10:30 AM EDT Office [place] [address] Joan Deutsch APRN [facility] [place] [address] documented as of this encounter Visit Diagnoses Diagnosis Arthritis of right foot- Primary Unspecified arthropathy, ankle and foot documented in this encounter Care Teams Electric Sign Assembler Relationship Specialty Start Date End Date Mariluz Watts MD [address] [facility] 1 [place] [address] PCP - General 08/22/10 documented as of this encounter
--- OUTSIDE RECORDS SUMMARY | 2024-08-11 17:14 | XMS_ITS | Encounter Summary ---
[place] [address] Care Team Providers Care Feather Renovator Name Role Phone Mariluz Watts MD Primary Care Provider [phone] Reason for Visit * Reason Onset Date Comments Rash 07/02/2013 Encounter Details Date Type Department Care Team (Late st Contact Info) Description 07/02/2013 Telephone [place] [address] Kimberly Ackerman RN Rash Social History Tobacco [...] PM EST Office [place] [address] Paula Harris PA [facility] [place] [address] 01/26/2025 9:50 AM EDT Appointment Mammography/[place] [address] Joan Deutsch APRN [facility] [place] [address] 01/26/2025 10:30 AM EDT Office [place] [address] Joan Deutsch, GE [facility] [place] [address] documented as of this encounter Visit Diagnoses Not on filedocumented in this encounter Care Teams Feather Renovator Relationship Specialty Start Date End Date Mariluz Watts MD [address] [place] [address] [address] [place] [address] PCP - General 08/22/10 documented as of this encounter
--- OUTSIDE RECORDS SUMMARY | 2024-08-11 17:14 | XMS_ITS | Encounter Summary ---
[place] [address] Care Team Providers Care Supervisor Metal Cans Name Role Phone Mariluz Watts MD Primary Care Provider [phone] Reason for Visit * Reason Onset Date Comments Other 08/25/2012 Encounter Details Date Type Department Care Team (Late st Contact Info) Description 08/25/2012 Telephone Hematology [place] [address] Gemini Lawrence RN Other Social History Tobacco [...] generated foranastrozoleon 07/25/12. Prescriber Francheska BERG. Called [facility] to verify that they received the script. The last script [facility] filled was in , 90/day supply. Patient would now be due for anotherscript. Called patient [phone] (H),to see of she has a script [...] PM EST Office [place] [address] Paula Harris PA [facility] [place] [address] 01/26/2025 9:50 AM EDT Appointment Mammography/DXA at [place] [phone] [facility] [place] [address] 01/26/2025 10:30 AM EDT Office Visit [place] [address] Joan Deutsch [employer] [facility] [place] [address] documented as of this encounter Visit Diagnoses Not on filedocumented in this encounter Care Teams Supervisor Metal Cans Relationship Specialty Start Date End Date Mariluz Watts MD [address] [place] [address] [address] [place] [address] PCP - General 11/23/10 documented as of this encounter
--- OUTSIDE RECORDS SUMMARY | 2024-08-11 17:14 | XMS_ITS | Encounter Summary ---
Author Organization [facility] [place] [address] Care Team Providers Care Adjunct Philosophy Faculty Name Role Phone Mariluz Watts MD Primary Care Provider [phone] Encounter Details Date Type Department Care Team (Late Contact Info) Description 05/25/2013 Orders [place] [address] Scar Aviles II, [facility] [place] [address] Social History Tobacco Use Types Packs/Day Years [...] PM EST Office [place] [address] Paula Harris, [facility] [place] [address] 01/26/2025 9:50 AM EDT Appointment Mammography/[place] [address]1000 Joan Deutsch, GE [facility] [place] [address] 01/26/2025 10:30 AM EDT Office [place] [address] Joan Deutsch, GE [facility] [place] [address] documented as of this encounter Visit Diagnoses Not on filedocumented in this encounter Care Teams Adjunct Philosophy Faculty Relationship Specialty Start Date End Date Mariluz Watts MD [address] [place] [address] PCP - General 08/22/10 documented as of this encounter
--- OUTSIDE RECORDS SUMMARY | 2024-08-11 17:14 | XMS_ITS | Encounter Summary ---
Author Organization [facility] [place] [address] Care Team Providers Care Switchboard Mechanic Name Role Phone Mariluz Watts MD Primary Care Provider [phone] Encounter Details Date Type Department Care Team (Latest Contact Info) Description 08/18/2012 11:20 AM EST - 08/18/2012 11:59 PM [facility] Encounter XRay at [address] [place] [address] DJD (degenerative joint disease) of hip Social [...] PM EST Office [place] [address]356[address] Paula Harris PA [facility] [place] [address] 01/26/2025 9:50 AM EDT Appointment Mammography/[place] [address] Joan Deutsch, RN [facility] GENERAL SURGERY [place] [id number] 01/26/2025 10:30 AM EDT Office Visit [place] [address] Joan Deutsch APRN [facility] [place] [address] documented as of this encounter Procedures Procedure [...] thigh documented in this encounter Care Teams Switchboard Mechanic Relationship Specialty Start Date End Date Mariluz Watts MD [address] [place] [address] PCP - General 08/22/10 documented as of this encounter
--- OUTSIDE RECORDS SUMMARY | 2024-08-11 17:14 | XMS_ITS | Encounter Summary ---
Author Organization [facility] [place] [address] Care Team Providers Care Customs Import Specialist Name Role Phone Mariluz Watts MD Primary Care Provider [phone] Reason for Referral * Physical Therapy (Routine) - Complete - Patient Will Schedule External Appt Specialty Diagnoses / Procedures Referred By John lyons Referred To Contact Physical Therapy Diagnoses Status post hip replacement Linsey Martinez PA [facility] [place] [address] Referral ID Status Reason Start Date Expiration Date Visits Requested Visits Authorized [id number] Complete - Patient Will Schedule External Appt Evaluate and Treat 04/21/2013 10/18/2013 12 12 * Consultation (Routine) - Closed Specialty Diagnoses / Procedures Referred By John lyons Referred To Contact Rheumatology Diagnoses Status post hip replacement Linsey Martinez PA [facility] [place] [address] [facility] [address] [place] [id number] Referral ID Status Reason Start Date Expiration Date V isits Requested Visits Authorized [id number] Closed Consult, Test & Treat 04/21/2013 10/18/2013 1 1 Reason for Visit * Reason Comments Bilateral Hip Pain SP L ARSLAN DOS 2, R ARSLAN DOS 2004 Encounter Details Date Type Department Care Team (Late st Contact Info) Description 04/21/2013 11:00 AM EDT Office [place] [address] Linsey Martinez PA [facility] [place] [address] Status post hip replacement (Primary Dx); S/P [...] Office [place] [address] Paula Harris PA [facility] [place] [address] 01/26/2025 9:50 AM EDT Appointment Mammography/[place] [phone] Joan Deutsch, HEDIS COORDINATOR [facility] [place] [address] 01/26/2025 10:30 AM EDT Office [place] [address] Joan Deutsch, HEDIS COORDINATOR [facility] [place] [address] Scheduled Referrals Name Type Priority Associated Diagnoses [...] means documented in this encounter Care Teams Customs Import Specialist Relationship Specialty Start Date End Date Mariluz Watts MD [address] [place] [address] [address] [place] [address] PCP - General 08/22/10 documented as of this encounter
--- OUTSIDE RECORDS SUMMARY | 2024-08-11 17:14 | XMS_ITS | Encounter Summary ---
Author [facility] [place] [address] Care Team Providers Care Repairer Typewriter Name Role Phone Mariluz Watts MD Primary Care Provider [phone] Reason for Visit * Reason Comments Follow-up Encounter Details Date Type Department Care Team (Late st Contact Info) Description 06/12/2013 10:00 AM EDT Follow-Up Hematology [place] [address] Abrahan Merlos MD [facility] DR HEMATOLOGY/[place] [address] Breast cancer, stage 2 (Primary Dx); Osteopenia [...] visit with Coral Ly. Abrahan Merlos MD contact center agent in Hematology-Oncology documented in this encounter Plan of Treatment Upcoming Encounters Date Type Department Care Team (Late st Contact Info) Description 11/16/2024 1:00 PM EST Office [place] [phone] Paula Harris PA [facility] [place] [address] 01/26/2025 9:50 AM EDT Appointment Mammography/[place] [phone] Joan Deutsch APRN [facility] [place] [address] 01/26/2025 10:30 AM EDT Office [place] [phone] Joan Deutsch APRN [facility] [place] [address] documented as of this encounter Results * [...] In Lab Abrahan Merlos MD CHEMISTRY ORDERABLES [facility] * VIT D Total Evaluation (12/22/2013 11:59 AM EDT) Vitamin D Total 25 OH 42 30 - 100 ng/mL [facility] Comment: Deficient <10 ng/mL Insufficient 10 [...] Abrahan Merlos MD CHEMISTRY ORDERABLES [facility] documented in this encounter Visit Diagnoses Diagnosis Breast cancer, stage 2- Primary Malignant neoplasm of breast (female), unspecified site Osteopenia Disorder of bone and cartilage, unspecified documented in this encounter Care Teams Repairer Typewriter Relationship Specialty Start Date End Date Mariluz Watts MD [address] [place] [address] 1 [place] [address] PCP - General 08/22/10 documented as of this encounter
--- OUTSIDE RECORDS SUMMARY | 2024-08-11 17:14 | XMS_ITS | Encounter Summary ---
[place] [address] Care Team Providers Care Medical Director Of Hospice Name Role Phone Mariluz Watts MD Primary Care Provider [phone] Reason for Visit * Reason Onset Date Comments Pharyngitis 03/16/2013 Other Encounter Details Date Type Department Care Team (Late st Contact Info) Description 03/16/2013 Telephone Hematology [place] [address] Nancy Ceron Pharyngitis; Social History Tobacco Use [...] not helping. She can be reached at [phone]. Returned call to the pt. 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 Suggested she return to her [...] Office [place] [phone] Paula Harris PA [facility] [place] [address] 01/26/2025 9:50 AM EDT Appointment Mammography/[place] [address] Joan Deutsch APRN [facility] [place] [address] 01/26/2025 10:30 AM EDT Office [place] [address] Joan Deutsch APRN [facility] [place] [address] documented as of this encounter Visit Diagnoses Not on filedocumented in this encounter Care Teams Medical Director Of Hospice Relationship Specialty Start Date End Date Mariluz Watts MD [address] [place] [address] PCP - General 08/22/10 documented as of this encounter
--- OUTSIDE RECORDS SUMMARY | 2024-08-11 17:14 | XMS_ITS | Encounter Summary ---
Author Organization [facility] [place] [address] Care Team Providers Care Double Head Machine Operator Name Role Phone Mariluz Watts MD Primary Care Provider [phone] Encounter Details Date Type Department Care Team (Latest Contact Info) Description 04/21/2013 10:35 AM EDT - 04/21/2013 11:59 PM EDT Hospital Encounter XRay at [address] [place] [address] Status post hip replacement Social History Tobacco [...] Refills Start Date End Date LACTOBAC CMB #[id number] ORAL Take 1 tablet by mouth daily. [...] topically daily. 45 g 3 12/31/2012 02/01/2014 [facility] cmb #[id number] (PROBIOTIC & ACIDOPHILUS) 300-250 million cell-mg Cap [...] PM EST Office [place] [address] Paula Harris PA [facility] [place] [address] 01/26/2025 9:50 AM EDT Appointment Mammography/[place] [phone] Joan Deutsch, GE [facility] [place] [address] 01/26/2025 10:30 AM EDT Office [place] [address] Joan Deutsch, GE [facility] [place] [address] documented as of this encounter Procedures Procedure [...] means documented in this encounter Care Teams Double Head Machine Operator Relationship Specialty Start Date End Date Mariluz Watts MD [address] [place] [address] PCP - General 08/22/10 documented as of this encounter
--- OUTSIDE RECORDS SUMMARY | 2024-08-11 17:14 | XMS_ITS | Encounter Summary ---
[place] [address] Care Team Providers Care Rodent Exterminator Name Role Phone Mariluz Watts MD Primary Care Provider [phone] Reason for Visit * Reason Onset Date Comments Other 07/10/2013 Medication issue Encounter Details Date Type Department Care Team (Late st Contact Info) Description 07/10/2013 Telephone [place] [address] Kimberly Ackerman RN Other (Medication issue) Social [...] EST Office [place] [phone] [facility] [place] [address] 01/26/2025 9:50 AM EDT Appointment Mammography/[place] [phone] [facility] [place] [address] 01/26/2025 10:30 AM EDT Office [place] [phone] [facility] [place] [address] documented as of this encounter Visit Diagnoses Not on filedocumented in this encounter Care Teams Rodent Exterminator Relationship Specialty Start Date End Date Mariluz Watts MD [address] [place] [address] PCP - General 08/22/10 documented as of this encounter
--- OUTSIDE RECORDS SUMMARY | 2024-08-11 17:14 | XMS_ITS | Encounter Summary ---
Author Organization [facility] [place] [address] Care Team Providers Care Ton Container Filler Name Role Phone Mariluz Watts MD Primary Care Provider [phone] Reason for Visit * Reason Comments Rosacea Encounter Details Date Type Department Care Team (Late st Contact Info) Description 12/31/2012 1:50 PM EDT Follow-Up Dermatology at [facility] [address] [place] [address] Chayo Willingham MD [facility] [place] [address] Sebaceous hyperplasia (Primary Dx); Rosacea Discharge Disposition: [...] supervision with direct supervision immediately available. (definition: [facility] GME Policy Statement on Graduate Medical Education, [...] concerning today for sebaceous adenoma (briefly discussed Independence-wilfred sydnrome and assocw/ cherelle neoplasms). Reassured. Pt [...] questions/concerns. Chayo Willingham MD Resident in Dermatology [facility] Patient seen and evaluated with staff acupressure therapist: Meagan Johnson MD Section of Dermatology [facility] documented in this encounter Plan of Treatment Upcoming Encounters Date Type Department Care Team (Late st Contact Info) Description 11/16/2024 1:00 PM EST Office [place] [address] Paula Harris PA [facility] [place] [place] [address] 01/26/2025 9:50 AM EDT Appointment Mammography/DXA at [place] [address] Joan Deutsch [facility] [place] [address] 01/26/2025 10:30 AM EDT Office Visit General Surgery at [place] [address] Joan Deutsch [employer]CH MECH[employer] [facility] [place] [address] documented as of this encounter Visit Diagnoses Diagnosis Sebaceous hyperplasia- Primary Other specified disease of sebaceous glands Rosacea documented in this encounter Care Teams Ton Container Filler Relationship Specialty Start Date End Date Mariluz Watts MD [address] [place] [address] [address] [place] [address] PCP - General 08/22/10 documented as of this encounter
--- OUTSIDE RECORDS SUMMARY | 2024-08-11 17:14 | XMS_ITS | Encounter Summary ---
[place] [address] Care Team Providers Care Life Trainer Name Role Phone Mariluz Watts MD Primary Care Provider [phone] Encounter Details Date Type Department Care Team (Late st Contact Info) Description 11/12/2012 Orders [place] [phone] Kian Ervin MD [address] [place] [address] Social History Tobacco Use Types Packs/Day Years [...] PM EST Office [place] [address] Paula Harris PA [facility] [place] [address] 01/26/2025 9:50 AM EDT Appointment Mammography/[place] [phone] Joan Deutsch, [facility] [place] [address] 01/26/2025 10:30 AM EDT Office [place] [address] Joan Deutsch, [facility] [place] [address] documented as of this encounter Procedures Procedure [...] Ervin MD IMG FILM LIBRARY ORD ERABLES [facility] [address] [facility] [place] [address] documented in this encounter Visit Diagnoses Not on filedocumented in this encounter Care Teams Life Trainer Relationship Specialty Start Date End Date Mariluz Watts MD [address] [place] [address] PCP - General 08/22/10 documented as of this encounter
--- OUTSIDE RECORDS SUMMARY | 2024-08-11 17:14 | XMS_ITS | Encounter Summary ---
Author Organization [facility] [place] [address] Care Team Providers Care Laborer Airport Maintenance Name Role Phone Mariluz Watts MD Primary Care Provider [phone] Encounter Details Date Type Department Care Team (Latest Contact Info) Description 12/09/2012 9:28 AM EDT - 12/09/2012 11:59 PM EDT Hospital Encounter XRay at [address] [place] [address] Breast cancer, stage 2 Social History Tobacco [...] PM EST Office Visit [place] [phone] Paula Harris PA [facility] [place] [address] 01/26/2025 9:50 AM EDT Appointment Mammography/[place] [address] Joan Deutsch APRN [facility] [place] [address] 01/26/2025 10:30 AM EDT Office Visit [place] [address] Joan Deutsch APRN [facility] [place] [address] documented as of this encounter Procedures Procedure [...] BMD measurements and plots are available in [employer] under the imaging tab. Paper copies will be sent to providers without [employer] access. If you have received this report without the data sheet and do not have access to [employer], please contact Radiology Continuous Mining Operator at [phone] Saturday thru Saturday 8am-4pm. Procedure Note Marly [...] not haveaccess to E-, please contact Radiology Continuous Mining Operator at [phone] Saturdaythru Saturday 8am-4pm. Abrahan Merlos MD IMG DEXA ORDERABLES documented in this encounter Visit Diagnoses Diagnosis Breast cancer, stage 2 Malignant neoplasm of breast (female), unspecified site documented in this encounter Care Teams Laborer Airport Maintenance Relationship Specialty Start Date End Date Mariluz Watts MD [address] [facility] 1 [place] [address] PCP - General 08/22/10 documented as of this encounter
--- OUTSIDE RECORDS SUMMARY | 2024-08-11 17:14 | XMS_ITS | Encounter Summary ---
[place] [address] Care Team Providers Care Online Editor Name Role Phone Mariluz Watts MD Primary Care Provider [phone] Reason for Visit * Reason Onset Date Comments Medication Refill 08/25/2012 Encounter Details Date Type Department Care Team (Late st Contact Info) Description 08/25/2012 Refill Hematology [place] [address] Gemini Lawrence RN Social History Tobacco Use [...] PM EST Office [place] [address] Paula Harris PA [facility] [place] [address] 01/26/2025 9:50 AM EDT Appointment Mammography/DXA at [place] [phone] Joan Deutsch, [facility] [place] [address] 01/26/2025 10:30 AM EDT Office [place] [address] Joan Deutsch, [facility] [place] [address] documented as of this encounter Visit Diagnoses Not on filedocumented in this encounter Care Teams Online Editor Relationship Specialty Start Date End Date Mariluz Watts MD [address] [facility] [address] [place] [address] PCP - General 08/22/10 documented as of this encounter
--- OUTSIDE RECORDS SUMMARY | 2024-08-11 17:14 | XMS_ITS | Encounter Summary ---
Author Organization [facility] [place] [address] Care Team Providers Care Photographic Editor Name Role Phone Mariluz Watts MD Primary Care Provider [phone] Encounter Details Date Type Department Care Team (Late st Contact Info) Description 11/19/2012 External Results XRay at [address] [place] [phone] Diego Melendrez MD [address] [place] [address] Social History Tobacco Use Types Packs/Day Years [...] PM EST Office Visit General Surgery at [facility] [place] [address] Paula Harris PA [facility] [place] [address] 01/26/2025 9:50 AM EDT Appointment Mammography/[place] [phone] Joan Deutsch, GE [facility] [place] [address] 01/26/2025 10:30 AM EDT Office Visit [place] [address] Joan Deutsch, [facility] [place] [address] documented as of this encounter Procedures Procedure Name Priority Date/Time Associated Diagnosis Comments DIAGNOSTIC RADIOLOGY SCAN Routine 11/12/2012 documented in this encounter Results * Scan Doc: Diagnostic Radiology (11/12/2012) Anatomical Region Laterality Modality Other Diego Melendrez MD MEDIA MGR SCAN EXT O RDR/RSLT documented in this encounter Visit Diagnoses Not on filedocumented in this encounter Care Teams Photographic Editor Relationship Specialty Start Date End Date Mariluz Watts MD [address] [place] [address] [address] [place] [address] PCP - General 08/22/10 documented as of this encounter
--- OUTSIDE RECORDS SUMMARY | 2024-08-11 17:14 | XMS_ITS | Encounter Summary ---
Author Organization [facility] [place] [address] Care Team Providers Care Automotive Manager Name Role Phone Mariluz Watts MD Primary Care Provider [phone] Reason for Visit * Reason Comments Left Hand Pain Encounter Details Date Type Department Care Team (Late st Contact Info) Description 12/03/2012 12:30 PM EST Office [place] [address] Lev Garg MD [facility] DR [place] [address] Dupuytren's contracture (Primary Dx) Discharge Disposition: Home [...] in this encounter Progress Notes * Jenny Baeaz PA - 12/03/2012 12:51 PM EST PATIENT NAME: Diamond Gaming AGE: 66 y.o. MR#: [id number] DATE OF VISIT: 12/03/2012 DATE OF INJURY/ONSET: June 2012 STAFF: Dr. Garg CHIEF COMPLAINT: left palm nodules HISTORY OF PRESENT ILLNESS: Ms. Gaming is a right hand dominant 66 y.o. female who comes into clinictoday for evaluation of the left hand. She was referred to [facility] Ortho by Mariluz Watts MD. The patient [...] PM EST Office Visit General Surgery at [place] [phone] Paula Harris PA [facility] [place] [address] 01/26/2025 9:50 AM EDT Appointment Mammography/DXA at [place] [phone] Joan Deutsch APRN [facility] [place] [address] 01/26/2025 10:30 AM EDT Office Visit [place] [address] Joan Deutsch, GE [facility] [place] [address] documented as of this encounter Visit Diagnoses Diagnosis Dupuytren's contracture- Primary Contracture of palmar fascia documented in this encounter Care Teams Automotive Manager Relationship Specialty Start Date End Date Mariluz Watts MD [address] [facility] [address] [place] [address] PCP - General 08/22/10 documented as of this encounter
--- OUTSIDE RECORDS SUMMARY | 2024-08-11 17:14 | XMS_ITS | Encounter Summary ---
Author Organization [facility] [place] [place] [address] Care Team Providers Care Paper Baler Name Role Phone Mariluz Watts MD Primary Care Provider [phone] Encounter Details Date Type Department Care Team (Late st Contact Info) Description 09/03/2012 Orders Only [place] [address] Lev Garg MD [facility] [place] [address] Hand pain (Primary Dx) Social History Tobacco [...] EST Office Visit [place] [address] Paula Harris PA [facility] [place] [address] 01/26/2025 9:50 AM EDT Appointment Mammography/[place] [address] Joan Deutsch, GE [facility] [place] [address] 01/26/2025 10:30 AM EDT Office Visit [place] [phone] Joan Deutsch, SITE SUPERINTENDENT [facility] [place] [address] documented as of this encounter Results * [...] limb documented in this encounter Care Teams Paper Baler Relationship Specialty Start Date End Date Mariluz Watts MD [address] [place] [address] [address] [facility] 1 [place] [address] PCP - General 08/22/10 documented as of this encounter
--- OUTSIDE RECORDS SUMMARY | 2024-08-11 17:14 | XMS_ITS | Encounter Summary ---
Author Organization [facility] [place] [address] Care Team Providers Care Carton Stapler Name Role Phone Mariluz Watts MD Primary Care Provider [phone] Reason for Visit * Reason Comments Joint Pain Encounter Details Date Type Department Care Team (Latest Contact Info) Description 05/20/2013 10:45 AM EDT Office [place] [address] Scar Aviles II, [facility] [address] Osteoarthritis (Primary Dx); Aromatase inhibitor-associated arthralgia Discharge [...] Office Visit General Surgery at [place] [phone] Paula Harris PA [facility] [place] [address] 01/26/2025 9:50 AM EDT Appointment Mammography/[place] [address] Joan Deutsch APRN [facility] [place] [address] 01/26/2025 10:30 AM EDT Office [place] [address] Joan Deutsch APRN [facility] [place] [address] documented as of this encounter Visit Diagnoses Diagnosis Osteoarthritis- Primary Osteoarthrosis, unspecified whether generalized or localized, unspecified site Aromatase inhibitor-associated arthralgia Pain in joint, site unspecified documented in this encounter Care Teams Carton Stapler Relationship Specialty Start Date End Date Mariluz Watts MD [address] [place] [address] PCP - General 08/22/10 documented as of this encounter
--- OUTSIDE RECORDS SUMMARY | 2024-08-11 17:14 | XMS_ITS | Encounter Summary ---
Author Organization [facility] [place] [address] Care Team Providers Care Brusher Machine Name Role Phone Mariluz Watts MD Primary Care Provider Reason for Visit * Reason Comments Follow-up Encounter Details Date Type Department Care Team (Late st Contact Info) Description 12/09/2012 11:30 AM EDT Follow-Up [place] [address] CLINIC, DR KATARINA Merlos, Abrahan Chavarria MD [facility] DR HEMATOLOGY/ONCOL[place] [address] Breast cancer, stage 2 (Primary Dx) Discharge [...] instead of the hip. You are now nursing home through five years of anastrozole. I'll see [...] followup in six months. Abrahan Merlos MD chronic specialist in Hematology-Oncology documented in this encounter Plan of Treatment Upcoming Encounters Date Type Department Care Team (Late st Contact Info) Description 11/16/2024 1:00 PM EST Office Visit General Surgery at [place] [phone] Paula Harris PA [facility] [place] [address] 01/26/2025 9:50 AM EDT Appointment Mammography/[place] [address] Joan Deutsch, [facility] [place] [address] 01/26/2025 10:30 AM EDT Office [place] [address]-1000 Joan Deutsch, [facility] [place] [address] documented as of this encounter Visit Diagnoses Diagnosis Breast cancer, stage 2- Primary Malignant neoplasm of breast (female), unspecified site documented in this encounter Care Teams Brusher Machine Relationship Specialty Start Date End Date Mariluz Watts MD [address] [place] [address] [address] PCP - General 08/22/10 documented as of this encounter
--- OUTSIDE RECORDS SUMMARY | 2024-08-11 17:14 | XMS_ITS | Encounter Summary ---
Author Organization Formerly [facility] [place] [address] Care Team Providers Care Integrated Logistics Programs Director Name Role Phone Mariluz Watts MD Primary Care Provider [phone] Reason for Visit * Reason Onset Date Comments Medication Refill 08/27/2012 Encounter Details Date Type Department Care Team (Late Contact Info) Description 08/27/2012 Refill Dermatology at [facility] [address] [place] [address] Chayo Willingham MD [facility] [place] [address] Rosacea (Primary Dx) Social History Tobacco Use [...] Office Visit [place] [address] Paula Harris PA [facility] [place] [address] 01/26/2025 9:50 AM EDT Appointment Mammography/DXA at [place] [phone] Joan Deutsch APRN [facility] [place] [address] 01/26/2025 10:30 AM EDT Office Visit General Surgery at [place] [phone] Joan Deutsch, GE [facility] [place] [address] documented as of this encounter Visit Diagnoses Diagnosis Rosacea- Primary documented in this encounter Care Teams Integrated Logistics Programs Director Relationship Specialty Start Date End Date Mariluz Watts MD [address] [place] [address] PCP - General 08/22/10 documented as of this encounter
--- OUTSIDE RECORDS SUMMARY | 2024-08-11 17:14 | XMS_ITS | Encounter Summary ---
Author Organization [facility] [place] [address] Care Team Providers Care Client Professional Name Role Phone Mariluz Watts MD Primary Care Provider [phone] Encounter Details Date Type Department Care Team (Late st Contact Info) Description 07/02/2013 Telephone Dermatology at [facility] [address] [place] [address] Santo Gutierrez III, MD [facility] [place] [address] Social History Tobacco Use Types Packs/Day Years [...] PM EST Office Visit General Surgery at [place] [phone] Paula Harris PA [facility] [place] [address] 01/26/2025 9:50 AM EDT Appointment Mammography/[place] [address] Joan Deutsch APRN [facility] [place] [address] 01/26/2025 10:30 AM EDT Office Visit General Surgery at [place] [phone] Joan Deutsch APRN [facility] [place] [address] documented as of this encounter Visit Diagnoses Not on filedocumented in this encounter Care Teams Client Professional Relationship Specialty Start Date End Date Mariluz Watts MD [address] [place] [address] PCP - General 08/22/10 documented as of this encounter
--- OUTSIDE RECORDS SUMMARY | 2024-08-11 17:14 | XMS_ITS | Encounter Summary ---
Author Organization [facility] [place] [address] Care Team Providers Care Boat Builder Name Role Phone Mariluz Watts MD Primary Care Provider [phone] Encounter Details Date Type Department Care Team (Late st Contact Info) Description 07/02/2013 Telephone Dermatology at [facility] [address] [place] [address] Santo Gutierrez III, MD [facility] DR CONG [place] [address] Social History Tobacco Use Types Packs/Day Years [...] PM EST Office [place] [address]-1000 Paula Harris PA [facility] [place] [address] 01/26/2025 9:50 AM EDT Appointment Mammography/[place] [phone] Joan Deutsch [facility] [place] [address] 01/26/2025 10:30 AM EDT Office [place] [address]-1000 Joan Deutsch [facility] [place] [address] documented as of this encounter Visit Diagnoses Not on filedocumented in this encounter Care Teams Boat Builder Relationship Specialty Start Date End Date Mariluz Watts MD [address] [place] [address] PCP - General 08/22/10 documented as of this encounter
--- OUTSIDE RECORDS SUMMARY | 2024-08-11 17:14 | XMS_ITS | Encounter Summary ---
Author Organization [facility] [place] [address] Care Team Providers Care Belt Sander Name Role Phone Mariluz Watts MD Primary Care Provider [phone] Encounter Details Date Type Department Care Team (Latest Contact Info) Description 06/10/2013 12:53 PM EDT - 06/10/2013 11:59 PM EDT Hospital Encounter XRay at [address] [place] [address] CLINIC, Morgan Palma MD [facility] DR [place] [address] Arthritis of right foot Discharge Disposition: Home [...] Refills Start Date End Date LACTOBAC CMB #6-XPI-[id number] ORAL Take 1 tablet by mouth daily. [...] 45 g 3 12/31/2012 02/01/2014 lactobac cmb #0-[id number] (PROBIOTIC & ACIDOPHILUS) 300-250 million cell-mg Cap [...] ARTHROCENTESIS,DRAIN/INJECT JOINT/BURSA Pre-Procedure Diagnose(s): Pain [employer] [id number] HISTORY: Pain right foot Right navicular cuneiform [...] PM EST Office Visit General Surgery at [place] [phone] Paula Harris PA [facility] [place] [address] 01/26/2025 9:50 AM EDT Appointment Mammography/[place] [phone] Joan Deutsch [facility] [place] [address] 01/26/2025 10:30 AM EDT Office Visit General Surgery at [place] [phone] Joan Deutsch, [facility] [place] [address] documented as of this encounter Procedures Procedure [...] EDT documented in this encounter Care Teams Belt Sander Relationship Specialty Start Date End Date Mariluz Watts MD [address] [place] [address] PCP - General 08/22/10 documented as of this encounter
--- OUTSIDE RECORDS SUMMARY | 2024-08-11 17:14 | XMS_ITS | Encounter Summary ---
Author Organization [facility] [place] [address] Care Team Providers Care Senior Business Manager Name Role Phone Mariluz Watts MD Primary Care Provider [phone] Encounter Details Date Type Department Care Team (Latest Contact Info) Description 07/13/2013 2:16 PM EDT - 07/13/2013 11:59 PM EDT Hospital Encounter XRay at [address] [place] [address] Status post hip replacement Social History Tobacco [...] Refills Start Date End Date LACTOBAC CMB #2-[id number] ORAL Take 1 tablet by mouth daily. [...] 45 g 3 12/31/2012 02/01/2014 lactobac cmb #1-[id number]-[id number] (PROBIOTIC & ACIDOPHILUS) 300-250 million cell-mg Cap [...] PM EST Office [place] [address] Paula Harris, PA [facility] GENER[place] [address] 01/26/2025 9:50 AM EDT Appointment Mammography/[place] [phone] Joan Deutsch APRN [facility] DR [place] [address] 01/26/2025 10:30 AM EDT Office [place] [address]-1000 Joan Deutsch, GE [facility] DR [place] [address] documented as of this encounter Procedures Procedure [...] documented in this encounter Care Teams Senior Business Manager Relationship Specialty Start Date End Date Mariluz Watts MD [address] [place] [address] PCP - General 08/22/10 documented as of this encounter
--- OUTSIDE RECORDS SUMMARY | 2024-08-11 17:14 | XMS_ITS | Encounter Summary ---
Author Organization [facility] [place] [address] Care Team Providers Care Developmental Specialist Name Role Phone Mariluz Watts MD Primary Care Provider [phone] Encounter Details Date Type Department Care Team (Late st Contact Info) Description 05/04/2013 Orders [place] [address]-1000 Debbi Hansen, RN Breast cancer (Primary Dx) [...] PM EST Office [place] [address]-1000 Paula Harris PA [facility] [place] [address] 01/26/2025 9:50 AM EDT Appointment Mammography/DXA at [place] [phone] [facility] [place] [address] 01/26/2025 10:30 AM EDT Office [place] [address]-[address] [facility] [place] [address] documented as of this encounter Visit Diagnoses Diagnosis Breast cancer- Primary Malignant neoplasm of breast (female), unspecified site documented in this encounter Care Teams Developmental Specialist Relationship Specialty Start Date End Date Mariluz Watts MD [address] [place] [address] PCP - General 08/22/10 documented as of this encounter
--- OUTSIDE RECORDS SUMMARY | 2024-08-11 17:14 | XMS_ITS | Encounter Summary ---
Author Organization [facility] [place] [address] Care Team Providers Care Cyber Intelligence Analyst Name Role Phone Mariluz Watts MD Primary Care Provider [phone] Encounter Details Date Type Department Care Team (Late st Contact Info) Description 12/03/2012 11:23 AM EST - 12/03/2012 11:59 PM [facility] Hospital Encounter XRay at [address] [place] [address] Hand pain Social History Tobacco Use Types [...] PM EST Office Visit [place] [address]-1000 Paula Harris PA [facility] [place] [address] 01/26/2025 9:50 AM EDT Appointment Mammography/[place] [address]2956[address] Joan Deutsch APRN [facility] [place] [address] 01/26/2025 10:30 AM EDT Office Visit [place] [address] Joan Deutsch APRN [facility] [place] [address] documented as of this encounter Procedures Procedure [...] limb documented in this encounter Care Teams Cyber Intelligence Analyst Relationship Specialty Start Date End Date Mariluz Watts MD [address] [place] [address] PCP - General 08/22/10 documented as of this encounter
--- OUTSIDE RECORDS SUMMARY | 2024-08-11 17:14 | XMS_ITS | Encounter Summary ---
[place] [address] Care Team Providers Care Brim Pouncer Machine Operator Name Role Phone Mariluz Watts MD Primary Care Provider [phone] Reason for Visit * Reason Onset Date Comments Other 05/25/2013 Follow Up Encounter Details Date Type Department Care Team (Late st Contact Info) Description 05/25/2013 [place] [address] Kimberly Ackerman RN Other (Follow Up) Social [...] Office [place] [phone] Paula Harris PA [facility] [place] [address] 01/26/2025 9:50 AM EDT Appointment Mammography/[place] [address]-1000 Joan Deutsch APRN [facility] [place] [address] 01/26/2025 10:30 AM EDT Office [place] [address]-1000 Joan Deutsch APRN [facility] [place] [address] documented as of this encounter Visit Diagnoses Not on filedocumented in this encounter Care Teams Brim Pouncer Machine Operator Relationship Specialty Start Date End Date Mariluz Watts MD [address] [place] [address] [address] [place] [address] PCP - General 08/22/10 documented as of this encounter
--- OUTSIDE RECORDS SUMMARY | 2024-08-11 17:14 | XMS_ITS | Encounter Summary ---
[place] [address] Care Team Providers Care Plug Machine Operator Name Role Phone Mariluz Watts MD Primary Care Provider [phone] Encounter Details Date Type Department Care Team (Latest Contact Info) Description 12/09/2012 9:28 AM EDT - 12/09/2012 11:59 PM EDT Hospital Encounter [place] [address] Malignant neoplasm of breast (female), unspecified site [...] EST Office Visit [place] [address] Paula Harris PA [facility] [place] [address] 01/26/2025 9:50 AM EDT Appointment Mammography/[place] [address]-1000 Joan Deutsch APRN [facility] [place] [place] [address] 01/26/2025 10:30 AM EDT Office Visit [place] [address] Joan Deutsch APRN [facility] [place] [address] documented as of this encounter Procedures Procedure [...] site documented in this encounter Care Teams Plug Machine Operator Relationship Specialty Start Date End Date Mariluz Watts MD [address] [place] [address] PCP - General 08/22/10 documented as of this encounter
--- OUTSIDE RECORDS SUMMARY | 2024-08-11 17:14 | XMS_ITS | Encounter Summary ---
Author Organization [facility] [place] [address] Care Team Providers Care Petrographer Name Role Phone Mariluz Watts MD Primary Care Provider [phone] Encounter Details Date Type Department Care Team (Late st Contact Info) Description 05/04/2013 Orders [place] [address]-1000 Morgan Kong MD [facility] DR ORTHOPAEDIC [place] [address] Right foot pain (Primary Dx) Social History [...] PM EST Office [place] [address] Paula Harris PA [facility] [place] [address] 01/26/2025 9:50 AM EDT Appointment Mammography[place] [address]-1000 Joan Deutsch, GE [facility] [place] [address] 01/26/2025 10:30 AM EDT Office [place] [address]-1000 Joan Deutsch, GE [facility] [place] [address] documented as of this encounter Results * [...] limb documented in this encounter Care Teams Petrographer Relationship Specialty Start Date End Date Mariluz Watts MD [address] [facility] [place] [address] PCP - General 08/22/10 documented as of this encounter
--- OUTSIDE RECORDS SUMMARY | 2024-08-11 17:14 | XMS_ITS | Encounter Summary ---
Author Organization [facility] [place] [address] Care Team Providers Care Architectural Intern Name Role Phone Mariluz Watts MD Primary Care Provider [phone] Reason for Visit * Reason Comments Medication Refill Encounter Details Date Type Department Care Team (Late Contact Info) Description 01/01/2013 Refill Dermatology at [place] [address] [place] [address] Chayo Willingham MD [facility] [place] [address] Social History Tobacco Use Types Packs/Day Years [...] PM EST Office Visit [place] [address] Paula Harris, PA [facility] [place] [address] 01/26/2025 9:50 AM EDT Appointment Mammography/[place] [address] Joan Deutsch, [facility] [place] [address] 01/26/2025 10:30 AM EDT Office [place] [address] Joan Deutsch, [facility] [place] [address] documented as of this encounter Visit Diagnoses Not on filedocumented in this encounter Care Teams Architectural Intern Relationship Specialty Start Date End Date Mariluz Watts MD [address] [place] [address] PCP - General 08/22/10 documented as of this encounter
--- OUTSIDE RECORDS SUMMARY | 2024-08-11 17:14 | XMS_ITS | Encounter Summary ---
Author Organization [facility] [place] [address] Care Team Providers Care Precipitator Name Role Phone Mariluz Watts MD Primary Care Provider [phone] Reason for Visit * Reason Comments [facility] S/P LEFT ANT ARSLAN DOS 07/22/12 WITH R HIP PAIN FALL 11/12/12 RIGHT ARSLAN 03/06/05 Encounter Details Date Type Department Care Team (Late st Contact Info) Description 12/22/2012 12:10 PM EDT Office [place] [address] Kian Ervin MD [address] [place] [address] S/P Left Anterior ARSLAN- 07/22/12 (Dr. Ervin) [...] epi, into skin and subcutaneous tissues (CPT [id number]) left total hip arthroplasty, anterior Hueter approach with [place] table (CPT code 60698) Left hip intraoperative radiologic examination (CPT code 89079) Amicar infusion (5 g IV load, then [...] PM EST Office Visit General Surgery at [place] [phone] Paula Harris PA [facility] [place] [address] 01/26/2025 9:50 AM EDT Appointment Mammography/[place] [address] Joan Deutsch APRN [facility] [place] [address] 01/26/2025 10:30 AM EDT Office [place] [address]-1000 Joan Deutsch APRN [facility] [place] [address] documented as of this encounter Visit Diagnoses Diagnosis S/P Left Anterior ARSLAN- 07/22/12 (Dr. Ervin)- Primary Hip joint replacement by other means Status post hip replacement Hip joint replacement by other means documented in this encounter Care Teams Precipitator Relationship Specialty Start Date End Date Mariluz Watts MD [address] [place] [address] PCP - General 08/22/10 documented as of this encounter
--- OUTSIDE RECORDS SUMMARY | 2024-08-11 17:14 | XMS_ITS | Encounter Summary ---
Author Organization [facility] [place] [address] Care Team Providers Care Director Global Development Name Role Phone Mariluz Watts MD Primary Care Provider [phone] Reason for Visit * Reason Onset Date Comments Medication Refill 01/06/2013 [facility] calling for a refill Encounter Details Date Type Department Care Team (Late st Contact Info) Description 01/06/2013 Telephone Dermatology at [facility] [address] [place] [address] Chayo Willingham MD [facility] [place] [address] Medication Refill ([facility] calling for a refill) Social [...] AM EDT Dr Willingham patient Levon from [facility] calling for a refill of benjamin-tab 250 mildavid lanie documented in this encounter Plan of Treatment Upcoming Encounters Date Type Department Care Team (Late st Contact Info) Description 11/16/2024 1:00 PM EST Office [place] [address]-1000 Paula Harris PA [facility] [place] [address] 01/26/2025 9:50 AM EDT Appointment Mammography/DXA at [place] [phone] Joan Deutsch [facility] [place] [address] 01/26/2025 10:30 AM EDT Office Visit General Surgery at [place] [phone] Joan Deutsch [facility] [place] [address] documented as of this encounter Visit Diagnoses Not on filedocumented in this encounter Care Teams Director Global Development Relationship Specialty Start Date End Date Mariluz Watts MD [address] [place] [address] PCP - General 08/22/10 documented as of this encounter
--- OUTSIDE RECORDS SUMMARY | 2024-08-11 17:14 | XMS_ITS | Encounter Summary ---
Author Organization [facility] [place] [address] Care Team Providers Care Host And Hostess Name Role Phone Mariluz Watts MD Primary Care Provider [phone] Encounter Details Date Type Department Care Team (Latest Contact Info) Description 05/22/2013 8:55 AM EDT - 05/22/2013 11:59 PM EDT Hospital Encounter XRay at [address] [place] [address] Right foot pain Social History Tobacco Use [...] Refills Start Date End Date LACTOBAC CMB #1-[id number] ORAL Take 1 tablet by mouth daily. [...] 45 g 3 12/31/2012 02/01/2014 lactobac cmb #1-[id number]-[id number] (PROBIOTIC & ACIDOPHILUS) 300-250 million cell-mg Cap [...] PM EST Office [place] [address]-1000 Paula Harris PA [facility] [place] [address] 01/26/2025 9:50 AM EDT Appointment Mammography/[place] [address]-1000 Joan Deutsch APRN [facility] [place] [address] 01/26/2025 10:30 AM EDT Office [place] [address]-1000 Joan Deutsch APRN [facility] [place] [address] documented as of this encounter Procedures Procedure [...] limb documented in this encounter Care Teams Host And Hostess Relationship Specialty Start Date End Date Mariluz Watts MD [address] [place] [address] PCP - General 08/22/10 documented as of this encounter
--- OUTSIDE RECORDS SUMMARY | 2024-08-11 17:14 | XMS_ITS | Encounter Summary ---
[place] [address] Care Team Providers Care Cyber Defense Forensics Analyst Name Role Phone Mariluz [place] MD Primary Care Provider [phone] Encounter Details Date Type Department Care Team (Late st Contact Info) Description 04/21/2013 Telephone [place] [address] Kian Ervin MD [address] [facility] [address] Social History Tobacco Use Types Packs/Day Years [...] and down stairs. Called transferred to the executive legal secretary to make an appointment with one of Dr Ervin's associates. Surgical Procedure Performed: Injection left hip with 10 cc marcaine 0.25% with epi, into skin and subcutaneous tissues (CPT [id number]) left total hip arthroplasty, anterior Hueter approach with Crawford table (CPT code 37470) Left hip intraoperative radiologic examination (CPT code 28822) Amicar infusion (5 g IV load, then 1g/hr x 3 hrs) documented in this encounter Plan of Treatment Upcoming Encounters Date Type Department Care Team (Late st Contact Info) Description 11/16/2024 1:00 PM EST Office Visit [place] [address] Paula Harris PA [facility] [place] [address] 01/26/2025 9:50 AM EDT Appointment Mammography/DXA at [place] [phone] Joan Deutsch CABLE FORMER [facility] [place] [address] 01/26/2025 10:30 AM EDT Office Visit [place] [address] Joan Deutsch CABLE FORMER [facility] [place] [address] documented as of this encounter Visit Diagnoses Not on filedocumented in this encounter Care Teams Cyber Defense Forensics Analyst Relationship Specialty Start Date End Date Mariluz [place] MD [address] [place] [address] PCP - General 08/22/10 documented as of this encounter
--- OUTSIDE RECORDS SUMMARY | 2024-08-11 17:15 | XMS_ITS | Encounter Summary ---
[place] [address] Care Team Providers Care Tubing Assembler Name Role Phone Mariluz [place] MD Primary Care Provider [phone] Reason for Visit * Reason Onset Date Comments Rash 08/14/2012 Encounter Details Date Type Department Care Team (Late st Contact Info) Description 08/14/2012 Telephone [place] [address] Kian Ervin MD [address] [place] [address] Rash Social History Tobacco Use Types Packs/Day [...] treated with doxycycline, allergy to tetracyclines, treated residential with prednisone. We will bring her in [...] PM EST Office Visit General Surgery at [place] [phone] Paula Harris PA [facility] [place] [address] 01/26/2025 9:50 AM EDT Appointment Mammography/DXA at [place] [phone] Joan Deutsch SOLE ROUNDER [facility] [place] [address] 01/26/2025 10:30 AM EDT Office [place] [phone] Joan Deutsch SOLE ROUNDER [facility] [place] [address] documented as of this encounter Visit Diagnoses Not on filedocumented in this encounter Care Teams Tubing Assembler Relationship Specialty Start Date End Date Mariluz [place] MD [address] [place] [address] PCP - General 08/22/10 documented as of this encounter
--- OUTSIDE RECORDS SUMMARY | 2024-08-11 17:15 | XMS_ITS | Encounter Summary ---
[place] [address] Care Team Providers Care Hospital Pharmacy Director Name Role Phone Mariluz [place] MD Primary Care Provider [phone] Encounter Details Date Type Department Care Team (Late st Contact Info) Description 07/28/2012 Telephone [place] [address] Taz Morales RN Social History Tobacco Use [...] PM EST Office [place] [address] Paula Harris PA [facility] [place] [address] 01/26/2025 9:50 AM EDT Appointment Mammography/[place] [address] Joan Deutsch APRN [facility] [place] [address] 01/26/2025 10:30 AM EDT Office [place] [address] Joan Deutsch APRN [facility] [place] [address] documented as of this encounter Visit Diagnoses Not on filedocumented in this encounter Care Teams Hospital Pharmacy Director Relationship Specialty Start Date End Date Mariluz [place] MD [address] [place], [place] [address]Y [address] [place] [address] PCP - General 08/22/10 documented as of this encounter
--- OUTSIDE RECORDS SUMMARY | 2024-08-11 17:15 | XMS_ITS | Encounter Summary ---
Author Organization [facility] [place] [address] Care Team Providers Care Acquisitions Logistics Analyst Name Role Phone Mariluz [place] MD Primary Care Provider [phone] Encounter Details Date Type Department Care Team (Late st Contact Info) Description 08/04/2012 [place] [address] Chayo Willnigham MD [facility] [place] [address] Rosacea (Primary Dx) Social History Tobacco Use [...] to decrease and have rx sent to [facility] pharmacy. documented in this encounter Plan of Treatment Upcoming Encounters Date Type Department Care Team (Late st Contact Info) Description 11/16/2024 1:00 PM EST Office [place] [address] Paula Harris PA [facility] [place] [address] 01/26/2025 9:50 AM EDT Appointment Mammography/[place] [address] Joan Deutsch APRN [facility] [place] [place] [address] 01/26/2025 10:30 AM EDT Office [place] [address] Joan Deutsch APRN [facility] [place] [place] [address] documented as of this encounter Visit Diagnoses Diagnosis Rosacea- Primary documented in this encounter Care Teams Acquisitions Logistics Analyst Relationship Specialty Start Date End Date Mariluz [place] MD [address] [place] [address] PCP - General 08/22/10 documented as of this encounter
--- OUTSIDE RECORDS SUMMARY | 2024-08-11 17:15 | XMS_ITS | Encounter Summary ---
[place] [address] Care Team Providers Care Gas Appliance Repairer Name Role Phone Mariluz [place] MD Primary Care Provider [phone] Encounter Details Date Type Department Care Team (Latest Contact Info) Description 07/08/2012 12:34 PM EDT - 07/08/2012 11:59 PM EDT [place] [address] Nick Ervin MD [address] [place] [address] DJD (degenerative joint disease) of hip Discharge [...] PM EST Office Visit [place] [address] Paula Harris PA [facility] [place] [address] 01/26/2025 9:50 AM EDT Appointment Mammography/[place] [phone] Joan Deutsch, [facility] [place] [address] 01/26/2025 10:30 AM EDT Office Visit [place] [address] Joan Deutsch, [facility] [place] [address] documented as of this encounter Procedures Procedure [...] GAMING ?Ordered By: NICK ERVIN ? MR#: [id number] ?LOC: ??4V ? /Sex: ??1945 (66 years), [...] - GENER AL ORDERABLES Performing Organization Address City/[facility]/ZIP Co de Phone Number CERNER MILLENNIUM * [...] Urine Dipstick Clear Clear CERNER MILLENNIUM Specific Kemmerer Urine Automated 1.017 1.002 - 1.030 CERNER [...] Screen Interp Negative VALERIE MAYERIUM Expires at 2357 on: [id number] VALERIE MAYERIUM Blood specimen (specimen) 07/08/2012 12:50 PM EDT 07/08/2012 1:23 PM EDT Narrative Resulting Agency Comment Spec In Lab Nick Ervin MD BLOOD BANK LAB ORDER SALVATORE [facility] [place] * ABO/RH TYPING (07/08/2012 12:50 PM EDT) Pathologist [facility] ABORH Type O Neg [facility] Blood specimen (specimen) 07/08/2012 12:50 PM EDT 07/08/2012 1:23 PM EDT Narrative Resulting Agency Comment Spec In Lab Nick Ervin MD BLOOD BANK LAB ORDER SALVATORE [facility] * Hemoglobin A1c (07/08/2012 12:50 PM EDT) [facility] Hemoglobin A1c 5.5 4.3 - 6.1 % [facility] Estimated Average Glucose 111 mg/dL [facility] Comment: eAG equivalents for HbA1c percentages: HbA1c(%) [...] into estimated average glucose values. ??Diabetes Care 2008:31(8):2146-2504. Blood specimen (specimen) 07/08/2012 12:50 PM EDT 07/08/2012 1:21 PM EDT Narrative Resulting Agency Comment Spec In Lab Nick Ervin MD CHEMISTRY ORDERABLES Performing Organization Address [facility] de Phone Number [facility] * Protein, total (07/08/2012 12:50 PM EDT) Protein, Total 6.9 6.4 - 8.3 gm/dL [facility] Blood specimen (specimen) 07/08/2012 12:50 PM EDT 07/08/2012 1:21 PM EDT Narrative Resulting Agency Comment Spec In Lab Nick Ervin MD CHEMISTRY ORDERABLES Performing Organization Address [facility] de Phone Number [facility]biteVETER[facility] PH[facility]ENIX[facility]UM * Albumin Level (07/08/2012 12:50 PM EDT) Albumin 4.7 3.2 - 5.2 gm/dL [facility] Blood specimen (specimen) 07/08/2012 12:50 PM EDT 07/08/2012 1:21 PM EDT Narrative Resulting Agency Comment Spec In Lab Nick Ervin MD CHEMISTRY ORDERABLES Performing Organization Address [facility] de Phone Number [facility] * High Sensitivity CRP (07/08/2012 12:50 PM EDT) C-Reactive Protein High Sensitivity 0.9 mg/L [facility] Comment: Interpretations: 1) For cardiac risk assessment, [...] Ervin MD CHEMISTRY ORDERABLES Performing Organization Address [facility] Phone Number [facility] SERVICESW[facility]Up * Sedimentation rate (07/08/2012 12:50 PM EDT) Sedimentation Rate Automated 6 0 - 20 mm/hr [facility] Blood specimen (specimen) 07/08/2012 12:50 PM EDT 07/08/2012 1:21 PM EDT Narrative Resulting Agency Comment Spec In Lab Authorizing Provider Result Froy Ervin MD HEMATOLOGY ORDERABLE S Performing Organization Address [facility] de Phone Number [facility] [employer]Pad * APTT (07/08/2012 12:50 PM EDT) Partial Thromboplastin Time 30 25 - 35 sec [facility] MILLENNIUM Comment: Recommended therapeutic PTT range for full dose unfractionated heparin is 80-114 seconds. Blood specimen (specimen) 07/08/2012 12:50 PM EDT 07/08/2012 1:21 PM EDT Narrative Resulting Agency Comment Spec In Lab Authorizing Provider Result Froy Ervin MD HEMATOLOGY ORDERABLE S Performing Organization Address [facility] de Phone Number [facility] * Prothrombin Time (07/08/2012 12:50 PM EDT) Prothrombin Time 12.6 11.9 - 14.7 sec [facility] MILLENNIUM Comment: [facility] Transfusion Committee Guidelines: INR less than 2.0, PTT less than OR equal to 43.5 seconds, or Fibrinogen greater than or equal to 100 mg/dl indicate adequate procoagulant activity for hemostasis in patients without underlying bleeding disorders. International Normalization Ratio 0.9 0.9 - 1.1 [facility] Blood specimen (specimen) 07/08/2012 12:50 PM EDT 07/08/2012 1:21 PM EDT Narrative Resulting Agency Comment Spec In Lab Authorizing Provider Result Froy Ervin MD HEMATOLOGY ORDERABLE S Performing Organization Address [facility] Phone Number [facility] * Basic Metabolic Panel (non-fasting) (07/08/2012 12:50 PM EDT) Glucose 93 60 - 199 mg/dL [facility]VETER[facility] Comment:Diabetes: >=200 mg/d L plus symptoms Blood Urea Nitrogen 14 8 - 18 mg/dL [facility] MILLENNIUM Creatinine 0.74 0.70 - 1.20 mg/dL [facility] MILLENNIUM Comment: Please note that the pediatric reference intervals supplied above were not validated at [facility]. Results from pediatric patients should be interpreted in conjunction to the patient's age, height and muscle mass. Sodium 140 135 - 145 mmol/L [facility] MILLENNIUM Potassium 4.2 3.5 - 5.0 mmol/L [facility] MILLENNIUM Comment: Please note: ??Patients with [...] thigh documented in this encounter Care Teams Gas Appliance Repairer Relationship Specialty Start Date End Date Mariluz [place] MD [address] [place] [address] [address] [place] [address] PCP - General 08/22/10 documented as of this encounter
--- OUTSIDE RECORDS SUMMARY | 2024-08-11 17:15 | XMS_ITS | Encounter Summary ---
Author Organization [facility] [place] [address] Care Team Providers Care Bakery Team Member Name Role Phone Mariluz [place] MD Primary Care Provider [phone] Encounter Details Date Type Department Care Team (Latest Contact Info) Description 07/08/2012 1:43 PM EDT - 07/08/2012 11:59 PM EDT Hospital Encounter XRay at [address] [place] [address] CLINIC, Kian Stone MD [address] [place] [address] DJD (degenerative joint disease) of hip Discharge [...] PM EST Office Visit [facility] at [facility] [place] [address] Paula Harris, PA [facility] [place] [address] 01/26/2025 9:50 AM EDT Appointment Mammography/[place] [address] Joan Deutsch, [facility] [place] [address] 01/26/2025 10:30 AM EDT Office Visit [place] [address] Joan Deutsch, [facility] [place] [address] documented as of this encounter Procedures Procedure [...] thigh documented in this encounter Care Teams Bakery Team Member Relationship Specialty Start Date End Date Mariluz [place] MD [address] [facility] [place] [address] PCP - General 08/22/10 documented as of this encounter
--- OUTSIDE RECORDS SUMMARY | 2024-08-11 17:15 | XMS_ITS | Encounter Summary ---
[place] [address] Care Team Providers Care Official Greeter Name Role Phone Mariluz [place] MD Primary Care Provider [phone] Encounter Details Date Type Department Care Team (Latest Contact Info) Description 07/08/2012 12:00 PM EDT Clinical [place] [address] DJD (degenerative joint disease) of hip (Primary [...] PM EST Office Visit General Surgery at [place] [phone] Paula Harris PA [facility] [place] [address] 01/26/2025 9:50 AM EDT Appointment Mammography/[place] [address] Joan Deutsch APRN [facility] [place] [address] 01/26/2025 10:30 AM EDT Office Visit General Surgery at [place] [phone] Joan Deutsch APRN [facility] [place] [address] documented as of this encounter Procedures Procedure [...] (Bezet) 412 ms MUSE SYSTEM Calculated P [place] 58 degrees MUSE SYSTEM Calculated R [place] -26 degrees MUSE SYSTEM Calculated T [place] 37 degrees MUSE SYSTEM INTERPRETATION Sinus rhythm with marked sinus arrhythmia Otherwise normal ECG When compared with ECG of 13-MAR-2010 09:34, No significant change was found Confirmed by MD Dooley Douglas ([id number]) on 07/08/2012 3:36:13 PM MUSE SYSTEM 07/08/2012 1:37 PM EDT 07/08/2012 3:36 PM EDT Kina Ervin MD ECG ORDERABLES MUSE SYSTEM documented in this encounter Visit Diagnoses Diagnosis DJD (degenerative joint disease) of hip- Primary Osteoarthrosis, unspecified whether generalized or localized, pelvic region and thigh documented in this encounter Care Teams Official Greeter Relationship Specialty Start Date End Date Mariluz [place] MD [address] [place] [address] [address] PCP - General 08/22/10 documented as of this encounter
--- OUTSIDE RECORDS SUMMARY | 2024-08-11 17:15 | XMS_ITS | Encounter Summary ---
[place] [address] Care Team Providers Care Pacu Nurse Name Role Phone Mariluz [place] MD Primary Care Provider [phone] Reason for Referral * Physical Therapy (Routine) - Complete - Patient Will Schedule External Appt Specialty Diagnoses / Procedures Referred By John lyons Referred To Contact Physical Therapy Diagnoses S/P total hip arthroplasty Kian Ervin MD [address] [place] [address] Referral ID Status Reason Start Date Expiration Date Visits Requested Visits Authorized [id number] Complete - Patient Will Schedule External Appt Evaluate and Treat 2 02/14/2013 1 1 Reason for Visit * Reason Comments Follow Up Surgery DOS 07/22/12 Left AN T ARSLAN Encounter Details Date Type Department Care Team (Late st Contact Info) Description 08/18/2012 12:45 PM EST Office Visit [place] [address] Kian Ervin MD [address] [place] [address] S/P total hip arthroplasty (Primary Dx) Discharge [...] Office Visit General Surgery at [place] [phone] Paula Harris PA [facility] [place] [address] 01/26/2025 9:50 AM EDT Appointment Mammography/DXA at [place] [phone] Joan Deutsch POWER SYSTEM DISPATCHER [facility] [place] [address] 01/26/2025 10:30 AM EDT Office Visit General Surgery at [place] [phone] Joan Deutsch POWER SYSTEM DISPATCHER [facility] [place] [address] Scheduled Referrals Name Type Priority Associated Diagnoses Orde r Schedule Referral to Physical Therapy Outpatient Referral Routine S/P total hip arthroplasty Ordered: 08/18/2012 documented as of this encounter Visit Diagnoses Diagnosis S/P total hip arthroplasty- Primary Hip joint replacement by other means documented in this encounter Care Teams Pacu Nurse Relationship Specialty Start Date End Date Mariluz [place] MD [address] [place] [address] [address] [place] [address] PCP - General 08/22/10 documented as of this encounter
--- OUTSIDE RECORDS SUMMARY | 2024-08-11 17:15 | XMS_ITS | Encounter Summary ---
[place] [address] Care Team Providers Care Bridal Gown Fitter Name Role Phone Mariluz [place] MD Primary Care Provider [phone] Encounter Details Date Type Department Care Team (Late Contact Info) Description 07/17/2012 Anti-Coag Telephone [place] [address] Kian Ervin MD [address] [place] [address] Social History Tobacco Use Types Packs/Day Years [...] PM EST Office [place] [address] Paula Harris PA [facility] [place] [address] 01/26/2025 9:50 AM EDT Appointment Mammography/DXA at [place] [phone] Joan Deutsch, COMPUTER SUPPORT SPECIALIST INSTRUCTOR [facility] [place] [address] 01/26/2025 10:30 AM EDT Office Visit General Surgery at [place] [phone] Joan Deutsch, [facility] [place] [address] documented as of this encounter Visit Diagnoses Not on filedocumented in this encounter Care Teams Bridal Gown Fitter Relationship Specialty Start Date End Date Mariluz [place] MD [address] [facility] [address] [place] [address] PCP - General 08/22/10 documented as of this encounter
--- OUTSIDE RECORDS SUMMARY | 2024-08-11 17:15 | XMS_ITS | Encounter Summary ---
Author Organization [facility] [place] [address] Care Team Providers Care Zipper Trimmer Hand Name Role Phone Mariluz [place] MD Primary Care Provider [phone] Encounter Details Date Type Department Care Team (Late st Contact Info) Description 07/22/2012 3:42 PM EDT Anesthesia Event [place] [address] Terry Membreno MD [facility] [place] [address] Cornell Leija CRNA [facility] [place] [address] Anesthesia Record Procedure Summary Procedure Name Responsible [...] dependent drainage; 07/23/12; 0637 07/22/12 0000 by aPu Swanson RN 07/23/12 0637 by Morgan Snider, [...] Procedure Performed: Right total hip arthroplasty, cementless, [id number] Components Used: Nina Trident 52 shell outer diameter Femoral head 32-4 mm Mountain Iron Accolade Femoral stem size 4, 127 deg [...] risks discussed with patient. Plan discussed with RESIDENTIAL FRAMING CARPENTER. Misc. Assessment: documented in this encounter Miscellaneous Notes * Addendum Note - Charity Gomez - 07/23/2012 11:18 AM EDT Addendum created 07/23/12 1118 by Charity Gomez Modules edited:Anesthesia Events, Anesthesia Responsible Staff documented in this encounter Plan of Treatment Upcoming Encounters Date Type Department Care Team (Late st Contact Info) Description 11/16/2024 1:00 PM EST Office Visit [place] [address] Paula Harris PA [facility] [place] [address] 01/26/2025 9:50 AM EDT Appointment Mammography/[place] [address] Joan Deutsch [facility] [place] [address] 01/26/2025 10:30 AM EDT Office Visit General Surgery at [place] [phone] Joan Deutsch HOUSEKEEPING AIDE [facility] [place] [address] documented as of this encounter Visit Diagnoses Not on filedocumented in this encounter Care Teams Zipper Trimmer Hand Relationship Specialty Start Date End Date Mariluz [place] MD [address] [place] [address] [address] [place] [address] PCP - General 08/22/10 documented as of this encounter
--- OUTSIDE RECORDS SUMMARY | 2024-08-11 17:15 | XMS_ITS | Encounter Summary ---
[place] [address] Care Team Providers Care Diamond Sander Name Role Phone Mariluz Watts MD Primary Care Provider [phone] Reason for Visit * Reason Comments Left Hip Pain Encounter Details Date Type Department Care Team (Late st Contact Info) Description 07/21/2012 8:35 AM EDT Office [place] [address] [place] [address] Other specified pre-operative examination; Hip pain Discharge [...] PM EST Office [place] [address] Paula Harris PA [facility] [place] [address] 01/26/2025 9:50 AM EDT Appointment Mammography/[place] [phone] Joan Deutsch, GE [facility] [place] [address] 01/26/2025 10:30 AM EDT Office [place] [address] Joan Deutsch APRN [facility] [place] [address] documented as of this encounter Visit Diagnoses Diagnosis Other specified pre-operative examination Hip pain Pain in joint, pelvic region and thigh documented in this encounter Care Teams Diamond Sander Relationship Specialty Start Date End Date Mariluz Watts MD [address] [place] [address] PCP - General 08/22/10 documented as of this encounter
--- OUTSIDE RECORDS SUMMARY | 2024-08-11 17:15 | XMS_ITS | Encounter Summary ---
Author Organization [facility] [place] [address] Care Team Providers Care Upholstery Cleaner Name Role Phone Mariluz Watts MD Primary Care Provider [phone] Reason for Visit * Reason Comments Rosacea Encounter Details Date Type Department Care Team (Late st Contact Info) Description 05/02/2012 3:30 PM EDT Follow-[place] [address] Chayo Willingham MD [facility] [place] [address] Rosacea (Primary Dx); Sebaceous hyperplasia Discharge Disposition: [...] concerns. Chayo Willingham MD Resident in Dermatology [facility] Patient seen and evaluated Saira Fernandez MD Section of Dermatology [facility] documented in this encounter Plan of Treatment Upcoming Encounters Date Type Department Care Team (Late st Contact Info) Description 11/16/2024 1:00 PM EST Office Visit General Surgery at [place] [phone] Paula Harris PA [facility] [place] [address] 01/26/2025 9:50 AM EDT Appointment Mammography/DXA at [place] [phone] Joan Deutsch [facility] [place] [address] 01/26/2025 10:30 AM EDT Office Visit General Surgery at [place] [phone] Joan Deutsch [facility] [place] [address] documented as of this encounter Visit Diagnoses Diagnosis Rosacea- Primary Sebaceous hyperplasia Other specified disease of sebaceous glands documented in this encounter Care Teams Upholstery Cleaner Relationship Specialty Start Date End Date Mariluz Watts MD [address] [place] [address] [address] [facility] [address] [place] [address] PCP - General 08/22/10 documented as of this encounter
--- OUTSIDE RECORDS SUMMARY | 2024-08-11 17:15 | XMS_ITS | Encounter Summary ---
Author Organization [facility] [place] [address] Care Team Providers Care Facility Maintenance Technician Name Role Phone Mariluz Watts MD Primary Care Provider Reason for Visit * Reason Onset Date Comments Medication Problem 08/04/2012 ?dosage Encounter Details Date Type Department Care Team (Late st Contact Info) Description 08/04/2012 [place] [address] Chayo Willingham MD [facility] [place] [address] Social History Tobacco Use Types Packs/Day Years [...] be lowered. She can be reached at [phone] eyal documented in this encounter Plan of Treatment Upcoming Encounters Date Type Department Care Team (Late st Contact Info) Description 11/16/2024 1:00 PM EST Office [place] [address] Paula Harris PA [facility] [place] [address] 01/26/2025 9:50 AM EDT Appointment Mammography/[place] [address] Joan Deutsch [facility] [place] [address] 01/26/2025 10:30 AM EDT Office [place] [address] Joan Deutsch CABINET BUILDER [facility] [place] [address] documented as of this encounter Visit Diagnoses Not on filedocumented in this encounter Care Teams Facility Maintenance Technician Relationship Specialty Start Date End Date Mariluz Watts MD [address] [place] [address] PCP - General 08/22/10 documented as of this encounter
--- OUTSIDE RECORDS SUMMARY | 2024-08-11 17:15 | XMS_ITS | Encounter Summary ---
Author Organization [facility] [place] [address] Care Team Providers Care Salvage Engineer Name Role Phone Mariluz Watts MD Primary Care Provider [phone] Encounter Details Date Type Department Care Team (Latest Contact Info) Description 05/02/2012 12:56 PM EDT - 05/02/2012 11:59 PM EDT Hospital [place] [address] CLINIC, DR KATARINA Merlos, Abrahan Chavarria MD [facility] HEMATOLOGY/[place] [address] Discharge Disposition: Home Social History Tobacco Use [...] Office Visit General Surgery at [place] [phone] Paula Harris PA [facility] GENER[place] [address] 01/26/2025 9:50 AM EDT Appointment Mammography/[place] [phone] Joan Deutsch APRN [facility] GENER[place] [address] 01/26/2025 10:30 AM EDT Office [place] [phone] Joan Deutsch APRN [facility] [place] [address] documented as of this encounter Visit Diagnoses Not on filedocumented in this encounter Care Teams Salvage Engineer Relationship Specialty Start Date End Date Mariluz Watts MD [address] [place] [address] PCP - General 08/22/10 documented as of this encounter
--- OUTSIDE RECORDS SUMMARY | 2024-08-11 17:15 | XMS_ITS | Encounter Summary ---
Author Organization [facility] [place] [address] Care Team Providers Care Enrollment Management Director Name Role Phone Mariluz Watts MD Primary Care Provider [phone] Reason for Visit * Reason Comments Follow-up Encounter Details Date Type Department Care Team (Late st Contact Info) Description 05/02/2012 2:00 PM EDT Follow-Up H[place]ology [place] [address] Abrahan Merlos MD [facility] DR HEMATOLOGY/[place] [address] Breast cancer, stage 2 (Primary Dx) Discharge [...] 05/02/2012 3:42 PM EDT Subjective: Patient ID: iDamond Gaming is a 66 y.o. female with [...] through April of 2015. Abrahan Merlos MD police chief deputy in Hematology-Oncology documented in this encounter Plan of Treatment Upcoming Encounters Date Type Department Care Team (Late st Contact Info) Description 11/16/2024 1:00 PM EST Office [place] [address] Paula Harris PA [facility] [place] [address] 01/26/2025 9:50 AM EDT Appointment Mammography/[place] [phone] Joan Deutsch ESCROW ASSISTANT [facility] [place] [address] 01/26/2025 10:30 AM EDT Office [place] [address] Joan Deutsch ESCROW ASSISTANT [facility] [place] [address] documented as of this encounter Procedures Procedure Name Priority Date/Time Associated Diagnosis Comments VITAMIN D, 25-HYDROXY Routine 05/02/2012 1:09 PM EDT Breast cancer, stage 2 HEPATIC FUNCTION PANEL STAT 05/02/2012 1:09 PM EDT Breast cancer, stage 2 documented in this encounter Results * VIT D Total 25 Hydroxy (05/02/2012 1:09 PM EDT) Pathologist [facility] Vitamin D Total 25 OH 41 30 - 100 ng/mL [facility] Comment: Deficient <10 ng/mL Insufficient 10 to [...] Hydroxy assays are being analyzed by the [facility] Chemistry Laboratory. ??There is NO CHANGE in units. ??Please contact the chemistry laboratory at [phone] with questions. Blood specimen (specimen) 05/02/2012 1:09 PM EDT 05/02/2012 1:11 PM EDT Narrative Resulting Agency Comment Spec In Lab Abrahan Merlos MD CHEMISTRY ORDERABLES [facility] * Hepatic Function Panel (05/02/2012 1:09 PM EDT) Pathologist [facility] Protein, Total 6.8 6.4 - 8.3 gm/dL [facility] Albumin 4.6 3.2 - 5.2 gm/dL [facility] Aspartate Aminotransferase 13 0 - 30 unit/L [facility]EN[facility] Alanine Aminotransferase 15 0 - 30 unit/L [facility] Alkaline Phosphatase 97 40 - 104 unit/L [facility] Bilirubin, Total 0.2 0.2 - 1.3 mg/dL [facility] Bilirubin, Direct 0.1 0.0 - 0.3 mg/dL [facility] Blood specimen (specimen) 05/02/2012 1:09 PM EDT 05/02/2012 1:11 PM EDT Narrative Resulting Agency Comment Spec In Lab Abrahan Merlos MD CHEMISTRY ORDERABLES [facility] documented in this encounter Visit Diagnoses Diagnosis Breast cancer, stage 2- Primary Malignant neoplasm of breast (female), unspecified site documented in this encounter Care Teams Enrollment Management Director Relationship Specialty Start Date End Date Mariluz Watts MD [address] [place] [address] PCP - General 08/22/10 documented as of this encounter
--- OUTSIDE RECORDS SUMMARY | 2024-08-11 17:15 | XMS_ITS | Encounter Summary ---
Author Organization [place] [address] Care Team Providers Care Recruiting Team Lead Name Role Phone Mariluz Watts MD Primary Care Provider [phone] Reason for Visit * Reason Comments Wound Evaluation SP L ARSLAN DOS 2- PT STATES THAT SHE HAS A RASH Encounter Details Date Type Department Care Team (Late st Contact Info) Description 08/14/2012 1:30 PM EST [place] [address] CLINIC, DR BRAY Discharge Disposition: Home Social [...] PM EST Office Visit General Surgery at [place] [phone] Paula Harris PA [facility] [place] [address] 01/26/2025 9:50 AM EDT Appointment Mammography/DXA at [place] [phone] Joan Deutsch [facility] [place] [address] 01/26/2025 10:30 AM EDT Office [place] [phone] Joan Deutsch [facility] [place] [address] documented as of this encounter Visit Diagnoses Not on filedocumented in this encounter Care Teams Recruiting Team Lead Relationship Specialty Start Date End Date Mariluz Watts MD [address] [place] [address] PCP - General 08/22/10 documented as of this encounter
--- OUTSIDE RECORDS SUMMARY | 2024-08-11 17:15 | XMS_ITS | Encounter Summary ---
[place] [address] Care Team Providers Care Joiners Supervisor Name Role Phone Mariluz Watts MD Primary Care Provider [phone] Encounter Details Date Type Department Care Team (Late st Contact Info) Description 07/22/2012 2:39 PM EDT - 07/22/2012 4:52 PM EDT Surgery [place] [address] Nick Ervin MD [address] ORTHOPAEDIC [place] [address] TOTAL HIP ARTHROPLASTY, ANTERIOR APPROACH (WRVU 19.6) [...] a bowel movement. You can take an rucz-ood-fagghbi medication, miralax if needed to combatconstipation. 2. [...] for L ARSLAN anterior Hueter approach w/ Maceo table. Pt has a cerclage wire for intra-op calcar fracture so limited to 50% WB L LE. 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 She used the leg bar catcher to assist L LE back into bed [...] POD#3 L ARSLAN anterior Heuter approach w/ Maceo table. Pt has a cerclage wire for [...] x Pt will move supine<>sit w/ leg bar catcher (I). x Pt will move sit<>stand (I) [...] minutes functional activity GINA LLANOS PT Pager: [phone] * Hero Dsouza - 07/25/2012 2:13 PM EDT Material Hauler Encounter Note Patient Name: Diamond Gaming : [id number] MR#: [id number] Admit Date: 07/22/2012 1:26 PM Hospital Day 3 days Narrative:Visited to introduce and assess acceptance of Material Hauler services. Assessment:Patient coping positively with stresses of illness/hospitalization at this time. Pt was in the chair and in good spirits. Pt is living by herself an hs children and grand children. 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 Intervention and Outcome:Material Hauler services accepted. Conversation to build trusting relationship.Provided [...] re: transfer. Supervision, extra time, and leg bar catcher needed for sit to supine transfer. Supervision [...] minutes; there ex functional x 2 Pager: [phone] ELLA MOYER Occupational Therapy Rehabilitation Department * [...] for L ARSLAN anterior Hueter approach w/ Maceo table. Pt has a cerclage wire for intra-op calcar fracture so limited to 50% WB L LE. 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 ?? She used leg bar catcher and almost had L LE up and [...] POD#2 L ARSLAN anterior Heuter approach w/ Maceo table. Pt has a cerclage wire for [...] x Pt will move supine<>sit w/ leg bar catcher (I). x Pt will move sit<>stand (I) [...] minutes functional activity GINA LLANOS PT Pager: [phone] * Jamee Cabrera OTA - 07/24/2012 4:27 [...] HOB elevated, extra time, and using leg bar catcher to assist LLE. Supervision sit to stand. [...] minutes; there ex functional x 2 Pager: [phone] ELLA MOYER Occupational Therapy Rehabilitation Department * Joan Carballo RN - 07/23/2012 10:30 PM EDT Assumed care of patient from [phone]. AOX4. HRR. VSS. Pt denies SOB, chest [...] RN, and lives with her grandchild and [place]ian pratt in [facility]. Pt had R ARSLAN In 03/04. Pt denies the need for in-pt rehab and feels she can manage at home with VNA. Pt requests [facility] for services. Pt will be on RIvaroxaban [...] Procedure Performed: Right total hip arthroplasty, cementless, [id number]-btdcopr Components Used: Nina Trident 52 shell outer [...] a bowel movement. You can take an eeiz-unm-atcyxyj medication, miralax if needed to combatconstipation. 2. [...] PM Nick Ervin MD [facility] [phone] None Joint Appt Health Question Three C Ortho [facility] [phone] None Future Orders Please Complete By Expires Referral to Home Health [[id number] CPT(R)] Process Instructions: Scheduling Instructions: Comments: [facility] PHONE: [phone] FAX: [phone] DOCUMENTATION FOR VNA SERVICES (INCLUDING THOSE PATIENTS WITH MEDICARE COVERAGE REQUIRING HOME VNA SERVICES AND/OR HOSPICE SERVICES) Diamond Gaming Discharge to own home: [address] [place] [phone] (home) No relevant phone numbers on file. In discussion with the attending physician, it is certified that this patient is under their care and that they, or a nurse practitioner, clinical nurse specialist or physician's patient care nursing assistant who is working directly with them, [...] effort and are for medical reasons or scientologist services of infrequently or of short duration when for other reasons) All VNA agencies which cover the area of patient's residence have been reviewed, either verbally mathew writing, and patient/family have chosen the home health care agency as noted for home services. Questions: Responses: Agency name and contact information [facility] Patient location post discharge home What services are requested Start date Responsible MD post discharge contact info Provider Contact Information: Primary Care Provider: MARILUZ WATTS MD [phone] Hospital Attending: Nick Ervin MD Department of Orthopaedic Surgery Joints: [phone] Signed: MORENA AWAD 07/25/2012 * Plan of [...] for L ARSLAN anterior Hueter approach w/ Maceo table. Pt has a cerclage wire for [...] Procedure Date: 08/18/2006 ??? Created by interface [id number] Procedure Date: 01/27/2007 ??? Created by interface [...] >4.0CM, TRUNK performed by TIRSO CHAUDHARI at [facility] MAIN OR ??? Colonoscopy, diagnostic 02/29/2012 COLONOSCOPY, DIAGNOSTIC performed by RAJAT KUO at [facility] ENDOSCOPY ??? 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 Gait pattern: [id number]-bk-ovku and cautious about not putting too much [...] POD#1 L ARSLAN anterior Heuter approach w/ Maceo table. Pt. tolerated today???s session fairly well [...] x Pt will move supine<>sit w/ leg bar catcher (I). x Pt will move sit<>stand (I) [...] treatment: 0 minutes GINA LLANOS, PT Pager: [phone] * Initial Assessments - Roly Garvin, OT [...] minutes Total timed interventions: 0 minutes Pager: [phone] ROLY GARVIN OT 07/23/2012 Occupational Therapy Rehabilitation [...] Date: Jul 2211-11 Surgeon: Nick Ervin MD Photofinishing Laboratory Worker: Ashley Michelle MD Anesthesia: GET Pre-operative diagnosis: Left hip osteoarthritis Body mass index is 35.35 kg/(m^2). Post-operative diagnosis: Same Surgical Procedure Performed: Injection left hip with 10 cc marcaine 0.25% with epi, into skin and subcutaneous tissues (CPT [id number]) left total hip arthroplasty, anterior Hueter approach with Maceo table (CPT code 70399) Left hip intraoperative radiologic examination (CPT code 17491) Amicar infusion (5 g IV load, then [...] wasperformed. Patient was positioned supine on the Maceo table, both feet and ankles were padded [...] liner was placed and impacted according to lubrication technician's instructions. Any impinging osteophytes were removed. The [...] and laterally. At the same time, the patient care nursing assistant leaned against the thigh to optimize [...] Implant Name Type Inv. Item Serial No. Chaperone Lot No. LRB No. Used Action SHELL,ACETABULAR,TRIDENT,PSL,S ([id number]) (AUTOREQ) - [id number] IMPLANTS SHELL,ACETABULAR,TRIDENT,PSL,S ([id number]) (AUTOREQ) Higher One - [id number] Left 1 Implanted INSERT,TRIDENT,ALUMINA,0,DEG,3 ([id number]) (AUTOREQ) - [id number] IMPLANTS INSERT,TRIDENT,ALUMINA,0,DEG,3 ([id number]) (AUTOREQ) Higher One - [id number] [id number] Left 1 Implanted STEM,FEM,ACCOLADE,127,DEG,NECK ([id number]) (AUTOREQ) - [id number] IMPLANTS STEM,FEM,ACCOLADE,127,DEG,NECK ([id number]) (AUTOREQ) [employer] One - 3759 [id number] Left 1 Implanted CABLE,SS,CRMP,1.0R299VE,STR ([id number]) - [id number] IMPLANTS CABLE,SS,CRMP,1.7F125FF,STR ([id number]) [facility] - [id number] Left 1 Implanted HEAD,FEM,ALUMINA,V40,-4X32MM ([id number]) (AUTOREQ) - [id number] IMPLANTS HEAD,FEM,ALUMINA,V40,-4X32MM ([id number]) (AUTOREQ) Higher One - 6109 [id number] Left 1 Implanted documented in this encounter Plan of Treatment Upcoming Encounters Date Type Department Care Team (Late st Contact Info) Description 11/16/2024 1:00 PM EST Office [place] [phone] Paula Harris PA [facility] [place] [address] 01/26/2025 9:50 AM EDT Appointment Mammography/[place] [address] Joan Deutsch APRN [facility] [place] [address] 01/26/2025 10:30 AM EDT Office [place] [address]-1000 Joan Deutsch HEEL SHAPER [facility] [place] [address] Pending Results Name Type Priority Associated Diagnoses [...] EDT Nick Ervin MD [facility]ATOLOGY ORDERABLE S [facility] MoogsoftIUM * (ABNORMAL) Basic Metabolic Panel (non-fasting) (07/24/2012 3:53 AM EDT) [facility] Glucose 127 60 - 199 mg/dL [...] MILLENNIUM Est Glomerular Filtration Rate >60 >=60 [facility] Comment: The National Kidney Disease Education Program [...] EDT Nick Ervin MD HEMATOLOGY ORDERABLE S [facility] * (ABNORMAL) Basic Metabolic Panel (non-fasting) (07/23/2012 4:36 AM EDT) [facility] Glucose 148 60 - 199 mg/dL [...] Narrative Resulting Agency Comment Spec In Lab Nikc Ervin MD CHEMISTRY ORDERABLES Performing Organization Address City/[facility]/ZIP Co de Phone Number CERRIGO MILLENNIUM [...] MD HEMATOLOGY ORDERABLE S Performing Organization Address City/[facility]/ZIP Co de Phone Number VALERIE [...] EDT Nick Ervin MD HEMATOLOGY ORDERABLE S [facility] MANISHAENNIUM * (ABNORMAL) CBC (with Diff) (07/22/2012 [...] [facility] ? Provider: ?? NICK ERVIN ? Pt. Name: ?? DIAMOND GAMING ? Acc #: ?[id number] ?Pt. ? Col Date: ?? 07/22/2012 ?/Sex: [...] MD PATHOLOGY/CYTOLOGY O JOSELUIS Performing Organization Address [facility] de Phone Number CERRIGO MILLENNIUM * Specimen to Pathology (surgical or derm) (07/22/2012 4:18 PM EDT) AP Specimen 07/22/2012 4:18 PM EDT 07/22/2012 4:18 PM EDT Narrative CERNER MILLENNIUM - 07/22/2012 4:18 PM EDT Specimen requisition ordered. ??Separate Pathology report to follow Nick Ervin MD PATHOLOGY/CYTOLOGY O JOSELUIS Performing Organization Address [facility] de Phone Number CERNER MANISHAENNIUM documented in [...] RN) 0831 (Given - Provider: Marily Murphy, [place]) 0851 (Given - Provider: Marily Murphy, [place]) [...] (Given - Provider: Marily Murphy RN) multivitamin Krio-Tr-CL-Min (THERAPEUTIC-M) 27-0.4 mg tablet 1 tablet (CANCELED) [...] Murphy RN)2099 (Due - Provider: Morgan Smith [facility]) sodium phosphates (FLEET) 19-7 gram/118 mL rectal [...] RN) 2099 (Due - Provider: Morgan Smith [facility]) Continuous Medication Order 07/23/2012 07/24/2012 07/25/2012 lactated [...] Nausea, Routine 0517 (Not Given - Provider: Mogran Snider, [place] - Reason: Entered in Error)0530 [...] Routine documented in this encounter Care Teams Joiners Supervisor Relationship Specialty Start Date End Date Mariluz Watts MD [address] [place] [address] PCP - General 08/22/10 documented as of this encounter
--- OUTSIDE RECORDS SUMMARY | 2024-08-11 17:15 | XMS_ITS | Encounter Summary ---
[place] [address] Care Team Providers Care Air Compressor Mechanic Name Role Phone Mariluz Watts MD Primary Care Provider [phone] Encounter Details Date Type Department Care Team (Latest Contact Info) Description 07/22/2012 1:26 PM EDT - 07/25/2012 9:16 PM EDT Hospital Encounter 3 [place] [address] Nick Ervin MD [address] [place] [address] Shaunna Discharge Disposition: Home Social History Tobacco [...] a bowel movement. You can take an sitg-dfg-qnkalhy medication, miralax if needed to combatconstipation. 2. [...] for L ARSLAN anterior Hueter approach w/ Goldvein table. Pt has a cerclage wire for intra-op calcar fracture so limited to 50% WB L LE. 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 She used the leg digital intern to assist L LE back into bed [...] POD#3 L ARSLAN anterior Heuter approach w/ Goldvein table. Pt has a cerclage wire for [...] x Pt will move supine<>sit w/ leg digital intern (I). x Pt will move sit<>stand (I) [...] minutes functional activity HOLLI LLANOS PT Pager: [phone] * Hero Dsouza - 07/25/2012 2:13 PM EDT Room Service Food Server Encounter Note Patient Name: Diamond Gaming : [id number] MR#: [id number] Admit Date: 07/22/2012 1:26 PM Hospital Day 3 days Narrative:Visited to introduce and assess acceptance of Room Service Food Server services. Assessment:Patient coping positively with stresses of illness/hospitalization at this time. Pt was in the chair and in good spirits. Pt is living by herself an hs children and grand children. 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 Intervention and Outcome:Room Service Food Server services accepted. Conversation to build trusting relationship.Provided [...] re: transfer. Supervision, extra time, and leg digital intern needed for sit to supine transfer. Supervision [...] minutes; there ex functional x 2 Pager: [phone] ELLA MOYER Occupational Therapy Rehabilitation Department * [...] for L ARSLAN anterior Hueter approach w/ Goldvein table. Pt has a cerclage wire for intra-op calcar fracture so limited to 50% WB L LE. 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 ?? She used leg digital intern and almost had L LE up and [...] POD#2 L ARSLAN anterior Heuter approach w/ Goldvein table. Pt has a cerclage wire for [...] x Pt will move supine<>sit w/ leg digital intern (I). x Pt will move sit<>stand (I) [...] minutes functional activity HOLLI LLANOS PT Pager: [phone] * Jamee Cabrera OTA - 07/24/2012 4:27 [...] HOB elevated, extra time, and using leg digital intern to assist LLE. Supervision sit to stand. [...] minutes; there ex functional x 2 Pager: [phone] ELLA MOYER Occupational Therapy Rehabilitation Department * Joan Carballo RN - 07/23/2012 10:30 PM EDT Assumed care of patient from [phone]. AOX4. HRR. VSS. Pt denies SOB, chest [...] RN, and lives with her grandchild and Mongolian pratt in [facility]. Pt had R ARSLAN In 03/04. Pt denies the need for in-pt rehab and feels she can manage at home with VNA. Pt requests [facility] for services. Pt will be on [...] Procedure Performed: Right total hip arthroplasty, cementless, ltbewdt-du-ktzfxws Components Used: Nina Trident 52 shell outer diameter Femoral head 32-4 mm Chelsea Accolade Femoral stem size 4, 127 deg [...] a bowel movement. You can take an kmiw-njt-cpwwudv medication, miralax if needed to combatconstipation. 2. [...] PM Nick Ervin MD [facility] [phone] None Joint Appt Health Question Three C Ortho [facility] [phone] None Future Orders Please Complete By Expires Referral to Home Health [[id number] CPT(R)] Process Instructions: Scheduling Instructions: Comments: [facility] PHONE: [phone] FAX: [phone] DOCUMENTATION FOR VNA SERVICES (INCLUDING THOSE PATIENTS WITH MEDICARE COVERAGE REQUIRING HOME VNA SERVICES AND/OR HOSPICE SERVICES) Diamond Mauri Gaming Discharge to own home: [address] [place] [phone] (home) No relevant phone numbers on file. In discussion with the attending physician, it is certified that this patient is under their care and that they, or a nurse practitioner, clinical nurse specialist or physician's executive assistant to general counsel who is working directly with them, had [...] effort and are for medical reasons or druze services of infrequently or of short duration when for other reasons) All VNA agencies which cover the area of patient's residence have been reviewed, either verbally mathew writing, and patient/family have chosen the home health care agency as noted for home services. Questions: Responses: Agency name and contact information [facility] Patient location post discharge home What services are requested Start date Responsible MD post discharge contact info Provider Contact Information: Primary Care Provider: MARILUZ WATTS MD [phone] Hospital Attending: Nick Ervin MD Department of Orthopaedic Surgery Joints: [phone] Signed: MORENA AWAD 07/25/2012 * Plan of [...] for L ARSLAN anterior Hueter approach w/ Goldvein table. Pt has a cerclage wire for [...] Procedure Date: 08/18/2006 ??? Created by interface [id number] Procedure Date: 01/27/2007 ??? Created by interface [...] >4.0CM, TRUNK performed by TIRSO CHAUDHARI at [facility] MAIN OR ??? Colonoscopy, diagnostic 02/29/2012 COLONOSCOPY, DIAGNOSTIC performed by RAJAT KUO at [facility] ENDOSCOPY ??? 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 Gait pattern: Thmk-of-wdzm and cautious about not putting too much [...] POD#1 L ARSLAN anterior Heuter approach w/ Goldvein table. Pt. tolerated today???s session fairly well [...] x Pt will move supine<>sit w/ leg digital intern (I). x Pt will move sit<>stand (I) [...] treatment: 0 minutes HOLLI LLANOS, PT Pager: [phone] * Initial Assessments - Aminta Garvin, OT [...] dog. 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 Walk in shower [...] minutes Total timed interventions: 0 minutes Pager: [phone] AMINTA GARVIN OT 07/23/2012 Occupational Therapy Rehabilitation [...] Date: Jul 2211-11 Surgeon: Nick Ervin MD Computer Forensics Investigator: Pb Michelle MD Anesthesia: GET Pre-operative diagnosis: Left hip osteoarthritis Body mass index is 35.35 kg/(m^2). Post-operative diagnosis: Same Surgical Procedure Performed: Injection left hip with 10 cc marcaine 0.25% with epi, into skin and subcutaneous tissues (CPT [id number]) left total hip arthroplasty, anterior Hueter approach with Goldvein table (CPT code 75881) Left hip intraoperative radiologic examination (CPT code 89263) Amicar infusion (5 g IV load, then [...] wasperformed. Patient was positioned supine on the Goldvein table, both feet and ankles were padded [...] liner was placed and impacted according to insurance sales professional's instructions. Any impinging osteophytes were removed. The [...] and laterally. At the same time, the executive assistant to general counsel leaned against the thigh to optimize femoral [...] Implant Name Type Inv. Item Serial No. Voyage Management System Operator Lot No. LRB No. Used Action SHELL,ACETABULAR,TRIDENT,PSL,S ([id number]) (AUTOREQ) - [id number] IMPLANTS SHELL,ACETABULAR,TRIDENT,PSL,S ([id number]) (AUTOREQ) Memoright - [id number] Left 1 Implanted INSERT,TRIDENT,ALUMINA,0,DEG,3 ([id number]) (AUTOREQ) - [id number] IMPLANTS INSERT,TRIDENT,ALUMINA,0,DEG,3 (6570819) (AUTOREQ) [employer]ight - [id number] Left 1 Implanted STEM,FEM,ACCOLADE,127,DEG,NECK (0800071) (AUTOREQ) - [id number] IMPLANTS STEM,FEM,ACCOLADE,127,DEG,NECK ([id number]) (AUTOREQ) [employer]ight - [id number] Left 1 Implanted CABLE,SS,CRMP,1.7T717LI,STR ([id number]) - [id number] IMPLANTS CABLE,SS,CRMP,1.2V985RZ,STR ([id number]) [facility] - [id number] Left 1 Implanted HEAD,FEM,ALUMINA,V40,-4X32MM ([id number]) (AUTOREQ) - [id number] IMPLANTS HEAD,FEM,ALUMINA,V40,-4X32MM ([id number]) (AUTOREQ) [employer]ight - [id number] Left 1 Implanted documented in this encounter Plan of Treatment Upcoming Encounters Date Type Department Care Team (Late st Contact Info) Description 11/16/2024 1:00 PM EST Office Visit General Surgery at [place] [phone] Paula Harris PA [facility] [place] [address] 01/26/2025 9:50 AM EDT Appointment Mammography/DXA at [place] [phone] Joan Deutsch APRN [facility] [place] [address] 01/26/2025 10:30 AM EDT Office [place] [address] Joan Deutsch DEPUTY PROBATION OFFICER [facility] [place] [address] Pending Results Name Type Priority Associated Diagnoses [...] intervals supplied above were not validated at [facility]. Results from pediatric patients [...] Lab Nick Ervin MD CHEMISTRY ORDERABLES [facility] * (ABNORMAL) CBC (with Diff) (07/25/2012 4:29 [...] Metabolic Panel (non-fasting) (07/24/2012 3:53 AM EDT) [facility] Glucose 127 60 - 199 mg/dL CERNER MILLENNIUM Comment:Diabetes: >=200 mg/d L plus symptoms Blood Urea Nitrogen 16 8 - 18 mg/dL CERNER MILLENNIUM Creatinine 0.58(L) 0.70 - 1.20 mg/dL CERNER MILLENNIUM Comment: Please note that the pediatric reference intervals supplied above were not validated at [facility]. Results from pediatric patients [...] Lab Nick Ervin MD CHEMISTRY ORDERABLES [facility] * (ABNORMAL) CBC (with Diff) (07/24/2012 [...] EDT Nick Ervin MD HEMATOLOGY ORDERABLE [facility] * (ABNORMAL) Basic Metabolic Panel (non-fasting) (07/23/2012 4:36 AM EDT) [facility] Signature Glucose 148 60 - 199 mg/dL CERNER MILLENNIUM Comment:Diabetes: >=200 mg/d L plus symptoms Blood Urea Nitrogen 14 8 - 18 mg/dL CERNER MILLENNIUM Creatinine 0.51(L) 0.70 - 1.20 mg/dL CERNER MILLENNIUM Comment: Please note that the pediatric reference intervals supplied above were not validated at [facility]. Results from pediatric patients [...] Ervin MD CHEMISTRY ORDERABLES Performing Organization Address [facility] Co de Phone Number CERRIGO [...] MD HEMATOLOGY ORDERABLE S Performing Organization Address [facility]/ZIP Co de Phone Number VALERIE MAYERIUM [...] 6:21 PM EDT) Surgical Pathology Report ? [facility] ? Provider: ?? NICK ERVIN ? Pt. Name: ?? DIAMOND GAMING ? Acc #: ?[id number] ?Pt. ? Col Date: ?? 07/22/2012 ?/Sex: [...] MD PATHOLOGY/CYTOLOGY O JOSELUIS Performing Organization Address [facility] de Phone Number VALERIE MAYERIUM * Specimen to Pathology (surgical or derm) (07/22/2012 4:18 PM EDT) AP Specimen 07/22/2012 4:18 PM EDT 07/22/2012 4:18 PM EDT Narrative CERNER MILLENNIUM - 07/22/2012 4:18 PM EDT Specimen requisition ordered. ??Separate Pathology report to follow Nick Ervin MD PATHOLOGY/CYTOLOGY O JOSELUIS Performing Organization Address [facility] de Phone Number VALERIE MAYERIUM documented [...] EDT Given 07/23/2012 9:00 AM EDT multivitamin Vipl-Vk-NI-Min (THERAPEUTIC-M) 27-0.4 mg tablet 1 tablet 1 [...] (Given - Provider: Marily Murphy RN) multivitamin Mfer-Ir-AT-Min (THERAPEUTIC-M) 27-0.4 mg tablet 1 tablet (CANCELED) [...] [place], [place])[address] (Due - Provider: Morgan Smith [facility]) sodium phosphates (FLEET) 19-7 gram/118 mL rectal [...] [place]) 2100 (Due - Provider: Morgan Smith [facility]) Continuous Medication Order 07/23/2012 07/24/2012 07/25/2012 lactated [...] Routine documented in this encounter Care Teams Air Compressor Mechanic Relationship Specialty Start Date End Date Mariluz Watts MD [address] [place] [address] PCP - General 08/22/10 documented as of this encounter
--- OUTSIDE RECORDS SUMMARY | 2024-08-11 17:15 | XMS_ITS | Encounter Summary ---
[place] [address] Care Team Providers Care High Density Press Laborer Name Role Phone Mariluz Watts MD Primary Care Provider [phone] Encounter Details Date Type Department Care Team (Late st Contact Info) Description 07/17/2012 Anti-Coag Telephone [place] [address] Kian Ervin MD [address] [place] [address] Social History Tobacco Use Types Packs/Day Years [...] PM EST Office Visit General Surgery at [place] [phone] Paula Harris PA [facility] [place] [address] 01/26/2025 9:50 AM EDT Appointment Mammography/DXA at [place] [phone] Joan Deutsch CARD DOFFER [facility] [place] [address] 01/26/2025 10:30 AM EDT Office Visit General Surgery at [place] [phone] Joan Deutsch [facility] [place] [address] documented as of this encounter Visit Diagnoses Not on filedocumented in this encounter Care Teams High Density Press Laborer Relationship Specialty Start Date End Date Mariluz Watts MD [address] [place] [address] PCP - General 08/22/10 documented as of this encounter
--- OUTSIDE RECORDS SUMMARY | 2024-08-11 17:15 | XMS_ITS | Encounter Summary ---
Author Organization [facility] [place] [address] Care Team Providers Care Button Sawyer Name Role Phone Mariluz Watts MD Primary Care Provider [phone] Encounter Details Date Type Department Care Team (Late st Contact Info) Description 07/21/2012 External Results [place] [address]-1000 Social History Tobacco Use Types Packs/Day Years [...] PM EST Office [place] [phone] Paula Harris PA [facility] [place] [address] 01/26/2025 9:50 AM EDT Appointment Mammography/[place] [address] Joan Deutsch, [facility] [place] [address] 01/26/2025 10:30 AM EDT Office [place] [address] Joan Deutsch, [facility] [place] [address] documented as of this encounter Visit Diagnoses Not on filedocumented in this encounter Care Teams Button Sawyer Relationship Specialty Start Date End Date Mariluz Watts MD [address] [place] [address] [address] [place] [address] PCP - General 08/22/10 documented as of this encounter
--- OUTSIDE RECORDS SUMMARY | 2024-08-11 17:16 | XMS_ITS | Encounter Summary ---
Author Organization [facility] [place] [address] Care Team Providers Care Aeronautical Drafter Name Role Phone Mariluz Watts MD Primary Care Provider [phone] Encounter Details Date Type Department Care Team (Latest Contact Info) Description 01/25/2012 2:17 PM EDT - 01/25/2012 11:59 PM EDT Hospital Encounter XRay at [address] [place] [address] S/P hip replacement Social History Tobacco Use [...] Office Visit General Surgery at [place] [phone] Paula Harris PA [facility] [place] [address] 01/26/2025 9:50 AM EDT Appointment Mammography/[place] [address]-1000 Joan Deutsch APRN [facility] [place] [place] [address] 01/26/2025 10:30 AM EDT Office Visit [place] [address]-1000 Joan Deutsch MEASUREMENT COORDINATOR [facility] [place] [address] documented as of this encounter Procedures Procedure [...] alignment in the weight bearing position. Mechanical [place]: ??The patient is status post right total [...] quadriceps tendon or in the joint bursa. [place] view shows moderate lateral facet narrowing, right greater than left. Schuss views demonstrate nokfbhve-ou-jsbwxd left medial compartmental narrowing and mild osteophytosis. [...] extremity alignment inthe weight bearing position. Mechanical [place]: The patient is status post right total [...] the quadriceps tendon or in the jointbursa. [place] view shows moderate lateral facet narrowing, right greater thanleft. Schuss views demonstrate rdjwzden-ix-tsagvg left medial compartmentalnarrowing and mild osteophytosis. PELVIS [...] means documented in this encounter Care Teams Aeronautical Drafter Relationship Specialty Start Date End Date Mariluz Watts MD [address] [place] [address] PCP - General 08/22/10 documented as of this encounter
--- OUTSIDE RECORDS SUMMARY | 2024-08-11 17:16 | XMS_ITS | Encounter Summary ---
Author Organization [facility] [place] [address] Care Team Providers Care Software Tester Name Role Phone Mariluz Watts MD Primary Care Provider [phone] Reason for Visit * Reason Comments Follow Up Surgery Encounter Details Date Type Department Care Team (Late st Contact Info) Description 04/16/2011 3:45 PM EDT Follow-[place] [address] Harini Muhammad, [facility] [place] [address] Other specified aftercare following surgery (Primary Dx) [...] - 04/16/2011 3:55 PM EDT Welcome to [employer], your secure online access to your electronic medical record at [facility]. Using DigitalVision you will be able to send messages to your providers, view your test results, renew prescriptions, schedule appointments, and much more. Follow these instructions to enter your personal DigitalVision account for the first time: 1. Start your internet browser. Go to [email or web address] and click on the Digital[employer]ision link. 2. Click SIGN UP NOW to go to the NEW MEMBER SIGN UP page. 3. Enter your DigitalVision Access Code exactly as it appears below. (You will not need this access code after you have completed the sign-up process.) ?? Your DigitalVision Access Code: [email or web address] ?? Expires: 05/18/11 04:20 PM ?? IMPORTANT: This Access Code will on the above mentioned date. If you do not sign up before this date, you will need to request a new Access Code number. 4. Enter your Date of (mm/dd/yyyy) and zip code click SUBMIT to go to the next page. 5. Create a DigitalVision identification (ID). This will be your DigitalVision login ID and cannot be changed, so [...] know when new information is available in [employer]Vision. 9. Click SIGN UP to complete the process. You can now view your electronic medical record. If you have any questions about [employer]ision or your Access Code, please call for [place], for [place] or for [place]. If you need technical support, please e-mail [email or web address]. Remember, [employer] is NOT for urgent needs! Always dial 911 for medical emergencies. documented in this encounter Progress Notes * Harini Muahmmad APRN - 04/16/2011 4:28 PM EDT PLASTIC [...] Office Visit General Surgery at [place] [phone] Paula Harris PA [facility] [place] [address] 01/26/2025 9:50 AM EDT Appointment Mammography/[place] [address] Joan Deutsch SAMPLER AND TEST PREPARER [facility] [place] [address] 01/26/2025 10:30 AM EDT Office [place] [address]-1000 Joan Deutsch APRN [facility] [place] [address] documented as of this encounter Visit Diagnoses Diagnosis Other specified aftercare following surgery- Primary documented in this encounter Care Teams Software Tester Relationship Specialty Start Date End Date Mariluz Watts MD [address] [facility] [address] [place] [address] PCP - General 08/22/10 documented as of this encounter
--- OUTSIDE RECORDS SUMMARY | 2024-08-11 17:16 | XMS_ITS | Encounter Summary ---
[place] [address] Care Team Providers Care Aerotriangulation Specialist Name Role Phone Mariluz Watts MD Primary Care Provider [phone] Encounter Details Date Type Department Care Team (Late st Contact Info) Description 03/27/2011 9:42 AM EDT - 03/27/2011 11:10 AM EDT Surgery [place] [address] Ruben Chaudhari MD [address] [place] [address] EXC BENIGN LESION; INDRA >4.0CM, TRUNK (WRVU [...] 10/26/2010 07/25/2012 DARCY SANCHEZ, [facility] 10/26/2010 012 multivitamin (THERAGRAN) tablet 10/26/2010 07/25/2012 [...] Operative Note Patient Name: Diamond Gaming : [id number] MR#: [id number] Case Date: 03/27/2011 Surgeon: Surgeon(s) and Role: [...] PM EST Office [place] [address] Paula Harris PA [facility] [place] [place] [address] 01/26/2025 9:50 AM EDT Appointment Mammography/[place] [address]1000 Joan Deutsch RESEARCH BIOSTATISTICIAN [facility] [place] [address] 01/26/2025 10:30 AM EDT Office [place] [address] Joan Deutsch APRN [facility] [place] [place] [address] documented as of this encounter Procedures Procedure [...] Routine documented in this encounter Care Teams Aerotriangulation Specialist Relationship Specialty Start Date End Date Mariluz Watts MD [address] [place], [place] [address]Y [facility] 1 [place] [address] PCP - General 08/22/10 documented as of this encounter
--- OUTSIDE RECORDS SUMMARY | 2024-08-11 17:16 | XMS_ITS | Encounter Summary ---
Author Organization [facility] [place] [address] Care Team Providers Care Date Night Caregiver Name Role Phone Mariluz Watts MD Primary Care Provider [phone] Encounter Details Date Type Department Care Team (Late st Contact Info) Description 10/26/2010 10:30 AM EST Procedure visit [place] [address] Social History Tobacco Use Types Packs/Day Years [...] PM EST Office [place] [address] Paula Harris PA [facility] [place] [address] 01/26/2025 9:50 AM EDT Appointment Mammography[place] [address] Joan Deutsch APRN [facility] [place] [place] [address] 01/26/2025 10:30 AM EDT Office [place] [address] Joan Deutsch APRN [facility] [place] [address] documented as of this encounter Visit Diagnoses Not on filedocumented in this encounter Care Teams Date Night Caregiver Relationship Specialty Start Date End Date Mariluz Watts MD [address] [place] [address] PCP - General 08/22/10 documented as of this encounter
--- OUTSIDE RECORDS SUMMARY | 2024-08-11 17:16 | XMS_ITS | Encounter Summary ---
[place] [address] Care Team Providers Care Mica Spreader Name Role Phone Mariluz Watts MD Primary Care Provider [phone] Encounter Details Date Type Department Care Team (Latest Contact Info) Description 03/27/2011 7:52 AM EDT - 03/27/2011 3:15 PM EDT Hospital En[place] [address] Ruben Chaudhari MD [address] [place] [address] Breast cancer, stage 2 Discharge Disposition: Home [...] Operative Note Patient Name: Diamond Gaming : [id number] MR#: [id number] Case Date: 03/27/2011 Surgeon: Surgeon(s) and Role: [...] Office Visit General Surgery at [place] [phone] Paula Harris PA [facility] [address] 01/26/2025 9:50 AM EDT Appointment Mammography/[place] [address] Joan Deutsch APRN [facility] [place] [address] 01/26/2025 10:30 AM EDT Office Visit General Surgery at [place] [phone] Joan Deutsch APRN [facility] [place] [address] documented as of this encounter Procedures Procedure [...] Routine documented in this encounter Care Teams Mica Spreader Relationship Specialty Start Date End Date Mariluz Watts MD [address] [place] [address] PCP - General 08/22/10 documented as of this encounter
--- OUTSIDE RECORDS SUMMARY | 2024-08-11 17:16 | XMS_ITS | Encounter Summary ---
[place] [address] Care Team Providers Care K 12 School Professional Name Role Phone Mariluz Watts MD Primary Care Provider [phone] Reason for Visit * Reason Comments Left Hip Pain Aftercare Of Tjr SP R ARSLAN DOS 02/2005 Left Knee Pain Encounter Details Date Type Department Care Team (Late st Contact Info) Description 01/25/2012 2:35 PM EDT Office [place] [address] Nick Ruiz MD [address] [place] [address] Hip pain (Primary Dx); S/P hip replacement [...] Procedure Performed: Right total hip arthroplasty, cementless, swhqohq-fw-tmuvcyr Components Used: Nicole Trident 52 shell outer [...] quadriceps tendon or in the joint bursa. [place] view shows moderate lateral facet narrowing, right greater than left. Schuss views demonstrate nncgpuch-hf-ltluxg left medial compartmental narrowing and mild osteophytosis. [...] Office [place] [address] Paula Harris PA [facility] [place] [address] 01/26/2025 9:50 AM EDT Appointment Mammography/[place] [address] Joan Deutsch APRN [facility] [place] [address] 01/26/2025 10:30 AM EDT Office [place] [address] Joan Deutsch APRN [facility] [place] [address] documented as of this encounter Results * XR Fluoro injection FL drain large JT (01/31/2012 2:13 PM EDT) Anatomical Region Laterality Modality N/A Radiographic Crystal ging 01/31/2012 2:13 PM EDT Narrative 02/04/2012 2:11 PM EDT ?VIR ?? PROCEDURE NOTE ?Name: ?? Diamond Gaming ? Date ?? of : 1945 ?Procedure: ?? LEFT HIP INJECTION UNDER FLUOROSCOPY ? ACC#: ?? [id number] ?Indication ?? for Procedure: Left hip pain, [...] fluoroscopy. ?Resident/Fellow: ?? Dr. Devaughn Mcdonough (Pager #[phone]) ? Attending: ?? Dr. Marly Torres ?ATTENDING [...] 1945 Procedure: LEFT HIP INJECTION UNDERFLUOROSCOPY ACC#: [id number] Indication for Procedure: Left hip pain, degenerative [...] jointinjection under fluoroscopy. Resident/Fellow: Dr. Devaughn Mcdonough (Pager#[phone]) Attending: Dr. Marly Torres ATTENDING ATTESTATION I, [...] thigh documented in this encounter Care Teams K 12 School Professional Relationship Specialty Start Date End Date Mariluz Watts MD [address] [place] [address] PCP - General 08/22/10 documented as of this encounter
--- OUTSIDE RECORDS SUMMARY | 2024-08-11 17:16 | XMS_ITS | Encounter Summary ---
Author Organization [facility] [place] [address] Care Team Providers Care Sales Compensation Analyst Name Role Phone Mariluz Watts MD Primary Care Provider [phone] Encounter Details Date Type Department Care Team (Late st Contact Info) Description 10/26/2010 11:00 AM EST Follow-[place] [address] Social History Tobacco Use Types Packs/Day Years [...] PM EST Office [place] [address] Paula Harris PA [facility] [place] [address] 01/26/2025 9:50 AM EDT Appointment Mammography/[place] [address] Joan Deutsch, GE [facility] [place] [address] 01/26/2025 10:30 AM EDT Office [place] [address] Joan Deutsch ASSISTANT COACH [facility] [place] [address] documented as of this encounter Visit Diagnoses Not on filedocumented in this encounter Care Teams Sales Compensation Analyst Relationship Specialty Start Date End Date Mariluz Watts MD [address] [place] [address] PCP - General 08/22/10 documented as of this encounter
--- OUTSIDE RECORDS SUMMARY | 2024-08-11 17:16 | XMS_ITS | Encounter Summary ---
[place] [address] Care Team Providers Care Laundry Presser Name Role Phone Mariluz Watts MD Primary Care Provider [phone] Reason for Visit * Reason Onset Date Comments Results 04/09/2011 Encounter Details Date Type Department Care Team (Late st Contact Info) Description 04/09/2011 Telephone Hematology [place] [address] Abrahan Merlos MD [facility] DR HEMATOLOGY/[place] [address] Results Social History Tobacco Use Types Packs/Day [...] PM EST Office [place] [address] Paula Harris PA [facility] [place] [address] 01/26/2025 9:50 AM EDT Appointment Mammography/[place] [address] Joan Deutsch [facility] [place] [address] 01/26/2025 10:30 AM EDT Office [place] [address] Joan Deutsch PACKAGING ASSOCIATE [facility] [place] [address] documented as of this encounter Visit Diagnoses Not on filedocumented in this encounter Care Teams Laundry Presser Relationship Specialty Start Date End Date Mariluz Watts MD [address] [place] [address] PCP - General 08/22/10 documented as of this encounter
--- OUTSIDE RECORDS SUMMARY | 2024-08-11 17:16 | XMS_ITS | Encounter Summary ---
[place] [address] Care Team Providers Care Program Project Manager Name Role Phone Mariluz Watts MD Primary Care Provider [phone] Reason for Visit * Reason Onset Date Comments Medication Refill 08/16/2011 Encounter Details Date Type Department Care Team (Late st Contact Info) Description 08/16/2011 Refill [place] [address] Abrahan Merlos MD [facility] DR HEMATOLOGY/[place] [address] Social History Tobacco Use Types Packs/Day Years [...] Nhi Chadwick APRN. Patient changing pharmacy to [facility]. Patient requesting medication be mailed to to her home address. [facility] are aware. documented in this encounter Plan of Treatment Upcoming Encounters Date Type Department Care Team (Late st Contact Info) Description 11/16/2024 1:00 PM EST Office [place] [address] Paula Harris PA [facility] [place] [address] 01/26/2025 9:50 AM EDT Appointment Mammography/DXA at [place] [phone] Joan Deutsch APRN [facility] [address] 01/26/2025 10:30 AM EDT Office [place] [address] Joan Deutsch APRN [facility] [address] documented as of this encounter Visit Diagnoses Not on filedocumented in this encounter Care Teams Program Project Manager Relationship Specialty Start Date End Date Mariluz Watts MD [address] [place] [address] [address] [place] [address] PCP - General 08/22/10 documented as of this encounter
--- OUTSIDE RECORDS SUMMARY | 2024-08-11 17:16 | XMS_ITS | Encounter Summary ---
[place] [address] Care Team Providers Care Outboard Motorboat Rigger Name Role Phone Mariluz Watts MD Primary Care Provider [phone] Reason for Referral * Physical Therapy (Routine) - Complete - Patient Will Schedule External Appt Specialty Diagnoses / Procedures Referred By John lyons Referred To Contact Physical Therapy Diagnoses DJD (degenerative joint disease) of hip Kian Ervin MD [address] [place] [address] Referral ID Status Reason Start Date Expiration Date Visits Requested Visits Authorized [id number] Complete - Patient Will Schedule External Appt Evaluate and Treat 02/01/2012 07/30/2012 12 12 Encounter Details Date Type Department Care Team (Late st Contact Info) Description 01/24/2012 Orders [place] [address] Kian Ervin MD [address] [place] [address] S/P hip replacement; Left knee [...] PM EST Office Visit [place] [address] Paula Harris PA [facility] [place] [address] 01/26/2025 9:50 AM EDT Appointment Mammography/DXA at [place] [phone] Joan Deutsch GRAPHICS SOFTWARE ENGINEER [facility] [place] [place] [address] 01/26/2025 10:30 AM EDT Office Visit General Surgery at [place] [phone] Joan Deutsch GRAPHICS SOFTWARE ENGINEER [facility] [place] [address] Scheduled Referrals Name Type Priority Associated Diagnoses [...] alignment in the weight bearing position. Mechanical [place]: ??The patient is status post right total [...] quadriceps tendon or in the joint bursa. [place] view shows moderate lateral facet narrowing, right greater than left. Schuss views demonstrate hllbsjce-wg-ekyppq left medial compartmental narrowing and mild osteophytosis. [...] extremity alignment inthe weight bearing position. Mechanical [place]: The patient is status post right total [...] the quadriceps tendon or in the jointbursa. [place] view shows moderate lateral facet narrowing, right greater thanleft. Schuss views demonstrate vhoxnapt-gc-wwatje left medial compartmentalnarrowing and mild osteophytosis. PELVIS [...] leg documented in this encounter Care Teams Outboard Motorboat Rigger Relationship Specialty Start Date End Date Mariluz Watts MD [address] [facility] [place] [address] PCP - General 08/22/10 documented as of this encounter
--- OUTSIDE RECORDS SUMMARY | 2024-08-11 17:16 | XMS_ITS | Encounter Summary ---
[place] [address] Care Team Providers Care Clam Dredger Name Role Phone Mariluz Watts MD Primary Care Provider [phone] Reason for Visit * Reason Comments Radiation Follow-up Right Breast Cancer Encounter Details Date Type Department Care Team (Latest Contact Info) Description 09/04/2011 1:33 PM EST - 09/04/2011 11:59 PM [facility] Hospital Encounter [place] [address] Stephanie Fernandez, [address] RADIATION ONCOLOGY [place], [place] [address] Breast cancer, stage 2 Discharge Disposition: Home [...] this encounter Progress Notes * Stephanie Fernandez, NOTCH MACHINE OPERATOR - 09/04/2011 2:18 PM EST Subjective: Patient ID: Diamond Gaming is a 65 y.o. female who was treated with radiation therapy [id number] right breast cancer. She completed radiation therapy on 05/15/2010 and is in clinic today for scheduledfollow up. HPI Right breast IDC with lobular features, intermediate grade, 1.5cm and additional lesion 0.8cm, +ALI, -PNI, tx lumpectomy and bilateral breast reductions, there is a close deep margin that was re-excised, 1 of 2 sentinel LNs involved with 0.2cm of disease and no GENA. ER+, MO+, fjx8yel pending. Note-left breast excisional biopsy showed a papilloma. DIAGNOSIS: breast cancer STAGE: Right- pT1c pN1 pMX PATHOLOGY: 03/24/10- Left breast excisional biopsy, right breast partial mastectomy and sentinel lymphadenectomy with bilateral breast reductions. RIGHT BREAST SPECIMEN FINDING: ---Pathologic Diagnosis--- Specimen (s): A - Right [place] node C - Right Partial Mastectomy E - Right Breast Cranial Margin F - Right Breast inferior medial margin Lesions 1&2: Histologic Type: Invasive ductal carcinoma with lobular features Tumor Grade: Intermediate Htrmnu-Qkeyw-Wznkoxpjhl Score: 7 Tubular Differentiation: 3 Mitotic Rate: [...] sentinel nodes: 2 (Specimen A - Right [place] node) No. positive for carcinoma: 1 (H&E) [...] Diagnosis: Benign sclerosing papilloma Prior Bx's correlation: [id number], part B Other findings: Fibrocystic disease with [...] EST Office [place] [address] Paula Harris PA [facility] [place] [address] 01/26/2025 9:50 AM EDT Appointment Mammography/[place] [address] Joan Deutsch, [facility] [place] [address] 01/26/2025 10:30 AM EDT Office Visit [place] [address] Joan Deutsch, NOTCH MACHINE OPERATOR [facility] [place] [address] documented as of this encounter Visit Diagnoses Diagnosis Breast cancer, stage 2 Malignant neoplasm of breast (female), unspecified site documented in this encounter Care Teams Clam Dredger Relationship Specialty Start Date End Date Mariluz Watts MD [address] [place] [address] PCP - General 08/22/10 documented as of this encounter
--- OUTSIDE RECORDS SUMMARY | 2024-08-11 17:16 | XMS_ITS | Encounter Summary ---
Author Organization [facility] [place] [address] Care Team Providers Care Ore Charger Name Role Phone Mariluz Watts MD Primary Care Provider [phone] Encounter Details Date Type Department Care Team (Late st Contact Info) Description 10/26/2010 1:15 PM EST Follow-[place] [address] Gardenia Marquez MD [facility] [place] [address] Discharge Disposition: Home Social History Tobacco Use [...] PM EST Office [place] [address] Paula Harris PA [facility] [place] [address] 01/26/2025 9:50 AM EDT Appointment Mammography/[place] [address] Joan Deutsch, [facility] [place] [address] 01/26/2025 10:30 AM EDT Office Visit [place] [address] Joan Deutsch, [facility] [place] [address] documented as of this encounter Visit Diagnoses Not on filedocumented in this encounter Care Teams Ore Charger Relationship Specialty Start Date End Date Mariluz Watts MD [address] [place] [address] [address] [place] [address] PCP - General 08/22/10 documented as of this encounter
--- OUTSIDE RECORDS SUMMARY | 2024-08-11 17:16 | XMS_ITS | Encounter Summary ---
[place] [address] Care Team Providers Care Substation Designer Name Role Phone Mariluz Watts MD Primary Care Provider [phone] Reason for Visit * Reason Comments Follow Up Surgery Encounter Details Date Type Department Care Team (Late st Contact Info) Description 11/01/2011 1:00 PM EST Follow-[place] [address] Bella Ly APRN [facility] [place] [address] Breast cancer, stage 2 (Primary Dx) Discharge [...] carcinoma with lobular features Tumor Grade: Intermediate Fyuvpw-Aujdf-Ctmenakrxx Score: 7 Tubular Differentiation: 3 Mitotic Rate: [...] sentinel nodes: 2 (Specimen A - Right [place] node) No. positive for carcinoma: 1 (H&E) [...] PM EST Office [place] [address] Paula Harris PA [facility] [place] [address] 01/26/2025 9:50 AM EDT Appointment Mammography/[place] [address] Joan Deutsch APRN [facility] [place] [address] 01/26/2025 10:30 AM EDT Office [place] [address] Joan Deutsch APRN [facility] [place] [address] documented as of this encounter Visit Diagnoses Diagnosis Breast cancer, stage 2- Primary Malignant neoplasm of breast (female), unspecified site documented in this encounter Care Teams Substation Designer Relationship Specialty Start Date End Date Mariluz Watts MD [address] [place] [address] PCP - General 08/22/10 documented as of this encounter
--- OUTSIDE RECORDS SUMMARY | 2024-08-11 17:16 | XMS_ITS | Encounter Summary ---
Author Organization [facility] [place] [address] Care Team Providers Care Addiction Psychiatrist Name Role Phone Mariluz Watts MD Primary Care Provider [phone] Reason for Visit * Reason Comments Rosacea Encounter Details Date Type Department Care Team (Late st Contact Info) Description 02/21/2012 3:30 PM EDT [place] [address] Chayo Willingham MD [facility] [place] [address] Rosacea (Primary Dx); Sebaceous hyperplasia Discharge Disposition: [...] supervision with direct supervision immediately available. (definition: [facility] GME Policy Statement on [...] by Chayo Willingham MD Resident in Dermatology [facility] Patient discussed with staff broadcast correspondent: Tulio Fernandez MD Section of Dermatology [facility] documented in this encounter Plan of Treatment Upcoming Encounters Date Type Department Care Team (Late st Contact Info) Description 11/16/2024 1:00 PM EST Office [place] [address] Paula Harrsi PA [facility] [place] [address] 01/26/2025 9:50 AM EDT Appointment Mammography/DXA at [place] [phone] Joan Deutsch APRN [facility] [place] [address] 01/26/2025 10:30 AM EDT Office [place] [address] Joan Deutsch APRN [facility] [place] [address] documented as of this encounter Visit Diagnoses Diagnosis Rosacea- Primary Sebaceous hyperplasia Other specified disease of sebaceous glands documented in this encounter Care Teams Addiction Psychiatrist Relationship Specialty Start Date End Date Mariluz Watts MD [address] [place] [address] PCP - General 08/22/10 documented as of this encounter
--- OUTSIDE RECORDS SUMMARY | 2024-08-11 17:16 | XMS_ITS | Encounter Summary ---
[place] [address] Care Team Providers Care Reading Efficiency Course Director Name Role Phone Mariluz Watts MD Primary Care Provider [phone] Reason for Visit * Reason Onset Date Comments Medication Refill 08/14/2011 Encounter Details Date Type Department Care Team (Late st Contact Info) Description 08/14/2011 Refill Hematology [place] [address] Gemini Felton RN Breast cancer, stage 2 [...] like the script mailed to her , [facility] are aware. Started May 28, 2010 Last seen 04/06/11 by , script generated. Patient changing pharmacy. Pended for approval and signature then e-scribed to [facility] outpatient pharmacy. * Telephone Encounter - Gemini Felton RN - 08/14/2011 12:28 PM EST Message copied by GEMINI FELTON on SatAug 14, 2011 12:28 PM ------ Message from: CASEY BAUER Created: SatAug 14, 2011 9:50 AM Merlos Diamond is switching her pharmacy, she would like her Arimidex phoned in to the outpatient pharmacy. If you have any questions she works here @ the [employer] [place] [address]. documented in this encounter Plan of Treatment Upcoming Encounters Date Type Department Care Team (Late st Contact Info) Description 11/16/2024 1:00 PM EST Office Visit General Surgery at [place] [phone] Paula Harris PA [facility] [address] 01/26/2025 9:50 AM EDT Appointment Mammography/[place] [address] Joan Deutsch GROUND SUPPORT EQUIPMENT ASSEMBLER [facility] [place] [address] 01/26/2025 10:30 AM EDT Office [place] [address] Joan Deutsch APRN [facility] [place] [address] documented as of this encounter Visit Diagnoses Diagnosis Breast cancer, stage 2 Malignant neoplasm of breast (female), unspecified site documented in this encounter Care Teams Reading Efficiency Course Director Relationship Specialty Start Date End Date Mariluz Watts MD [address] [place] [address] PCP - General 08/22/10 documented as of this encounter
--- OUTSIDE RECORDS SUMMARY | 2024-08-11 17:16 | XMS_ITS | Encounter Summary ---
[place] [address] Care Team Providers Care Dermatology Technician Name Role Phone Mariluz Watts MD Primary Care Provider [phone] Reason for Visit * Reason Comments Follow-up Encounter Details Date Type Department Care Team (Latest Contact Info) Description 04/06/2011 1:37 PM EDT - 04/06/2011 11:59 PM EDT Hospital Encounter Hematology [place] [address] Abrahan Merlos MD [facility] HEMATOLOGY/[place] [address] Breast cancer, stage 2 Discharge Disposition: Home [...] Take 500 mg by mouth daily. 09/04/2011 Iaqrdpd-Kcqqglbyj-Pcjy 333-133-5 mg Tab Take 3 tablets by [...] PM EST Office Visit General Surgery at [place] [phone] Paula Harris PA [facility] [place] [address] 01/26/2025 9:50 AM EDT Appointment Mammography/DXA at [place] [phone] Joan Deutsch APRN [facility] [place] [address] 01/26/2025 10:30 AM EDT Office Visit General Surgery at [place] [phone] Joan Deutsch APRN [facility] [place] [address] documented as of this encounter Visit Diagnoses Diagnosis Breast cancer, stage 2 Malignant neoplasm of breast (female), unspecified site documented in this encounter Care Teams Dermatology Technician Relationship Specialty Start Date End Date Mariluz Watts MD [address] [place] [address] PCP - General 08/22/10 documented as of this encounter
--- OUTSIDE RECORDS SUMMARY | 2024-08-11 17:16 | XMS_ITS | Encounter Summary ---
Author Organization [facility] [place] [address] Care Team Providers Care Direct Service Professional Name Role Phone Unavailable Primary Care Provider Unavailabl e Encounter Details Date Type Department Care Team (Late st Contact Info) Description 08/14/2010 10:00 AM EST - 08/14/2010 11:59 PM EST Hospital Encounter [place] [address] Mari Paniagua MD [facility] [place] [address] Social History Tobacco Use Types Packs/Day Years [...] PM EST Office [place] [address] Paula Harris PA [facility] [place] [address] 01/26/2025 9:50 AM EDT Appointment Mammography/[place] [address] Joan Deutsch, [facility] [place] [address] 01/26/2025 10:30 AM EDT Office [place] [address] Joan Deutsch, [facility] [place] [address] documented as of this encounter Visit Diagnoses Not on filedocumented in this encounter
--- OUTSIDE RECORDS SUMMARY | 2024-08-11 17:16 | XMS_ITS | Encounter Summary ---
[place] [address] Care Team Providers Care Reject Opener Name Role Phone Mariluz Watts MD Primary Care Provider [phone] Encounter Details Date Type Department Care Team (Latest Contact Info) Description 04/06/2011 1:36 PM EDT - 04/06/2011 11:59 PM EDT [place] [address] CLINIC, DR KATARINA Merlos, Abrahan Chavarria MD [facility] HEMATOLOGY/[place] [address] Discharge Disposition: Home Social History Tobacco Use [...] Date End Date anastrozole (ARIMIDEX) 1 mg tabletIndications:[place] st cancer, stage 2 Take 1 tablet by mouth daily. 90 tablet 3 04/06/2011 08/14/2011 Triamcinolone Acetonide-L.S.B. 0.1 % CreaIndications:Dermat itis Apply 1 applicator topically 2 times daily for 7 days. 1 Tube 0 04/03/2011 04/10/2011 ascorbic acid (VITAMIN C) 500 mg tablet Take 500 mg by mouth daily. 09/04/2011 Psvjhch-Eyvjqqisw-Ltde 333-133-5 mg Tab Take 3 tablets by [...] Office [place] [phone] Paula Harris PA [facility] [place] [address] 01/26/2025 9:50 AM EDT Appointment Mammography/[place] [phone] Joan Deutsch APRN [facility] [place] [address] 01/26/2025 10:30 AM EDT Office [place] [phone] Joan Deutsch APRN [facility] [place] [address] documented as of this encounter Procedures Procedure Name Priority Date/Time Associated Diagnosis Comments VITAMIN D, 25-HYDROXY Routine 04/06/2011 1:44 PM EDT HEPATIC FUNCTION PANEL STAT 04/06/2011 1:44 PM EDT documented in this encounter Results * HEPATIC FUNCTION PANEL (04/06/2011 1:44 PM EDT) Pathologist [facility] [place] Protein, Total 6.8 6.4 - 8.3 gm/dL [...] PM EDT Abrahan Merlos MD CHEMISTRY ORDERABLES [facility] * VITAMIN D2 AND D3 25 HYDROXY (04/06/2011 1:44 PM EDT) Pathologist [facility] [place] 25-Hydroxy D2 <4.0 ng/mL [facility]ERNER MILLENNIUM Comment: Test Performed by: [place] [address] Grain Mixer: Adela Gavin, Ph.D. 25-Hydroxy D3 41 ng/mL [facility] Comment: Test Performed by: [place] [address] Grain Mixer: Adela Gavin, Ph.D. Vitamin D Total 25 OH 41 ng/mL [facility] Comment: -- REFERENCE VALUE -- 25-HYDROXY D TOTAL (D2+D3) Optimum levels in the normal population are 25-80 Test Performed by: [employer] [place] [address] Grain Mixer: Adela Gavin, Ph.D. Blood specimen (specimen) 04/06/2011 1:44 PM EDT 04/06/2011 3:52 PM EDT Abrahan Merlos MD CHEMISTRY ORDERABLES Performing Organization Address City/State/[facility] Co fl Phone Number [facility] documented in this encounter Visit Diagnoses Not on filedocumented in this encounter Care Teams Reject Opener Relationship Specialty Start Date End Date Mariluz Watts MD [address] [place] [address] PCP - General 08/22/10 documented as of this encounter
--- OUTSIDE RECORDS SUMMARY | 2024-08-11 17:16 | XMS_ITS | Encounter Summary ---
Author Organization [facility] [place] [address] Care Team Providers Care Day Camp Unit Leader Name Role Phone Mariluz Watts MD Primary Care Provider [phone] Encounter Details Date Type Department Care Team (Latest Contact Info) Description 02/29/2012 11:00 AM EDT - 02/29/2012 2:14 PM EDT Hospital En[place] [address] Gallito Lincoln MD [facility] [place] [address] Discharge Disposition: Home Social History Tobacco Use [...] - 02/29/2012 1:01 PM EDT Please call [phone], before 5pm with problems, questions or concerns, after 5pm call the Hospital at [phone] and ask to speak to the Carpenter Helper electronics tech and the railway switch operator will contactthat person for you. Discharge [...] * COLONOSCOPY: WHAT TO EXPECT AT HOME (SAMOAN) documented in this encounter Medications at Time [...] PM EST Office [place] [address] Paula Harris PA [facility] [place] [address] 01/26/2025 9:50 AM EDT Appointment Mammography/[place] [address] Joan Deutsch, [facility] [place] [address] 01/26/2025 10:30 AM EDT Office [place] [address] Joan Deutsch, [facility] [place] [address] documented as of this encounter Procedures Procedure Name Priority Date/Time Associated Diagnosis Comments COLONOSCOPY Routine 02/29/2012 12:01 PM EDT COLONOSCOPY, DIAGNOSTIC (WRVU 3.26) 02/29/2012 11:39 AM EDT 5YR RESCOPE documented in this encounter Results * COLONOSCOPY (02/29/2012 12:01 PM EDT) [facility] Signature COLONOSCOPY [facility] Endoscopy Patient Name: Diamond Gaming ? Procedure Date: 02/29/2012 12:01 PM ? Date of : 1945 ? Age: 66 ? Order #: [id number] ? Procedure: ? Colonoscopy Indications: ? Follow-up for history of adenomatous ? polyps in the colon Providers: ? Gallito Lincoln MD, Anu Schafer, ? [place], Margret Shen, Vacuum Drier Operator Referring : ?Mariluz Watts MD Medicines: [...] RN) documented in this encounter Care Teams Day Camp Unit Leader Relationship Specialty Start Date End Date Mariluz Watts MD [address] [place] [address] PCP - General 08/22/10 documented as of this encounter
--- OUTSIDE RECORDS SUMMARY | 2024-08-11 17:16 | XMS_ITS | Encounter Summary ---
Author Organization [facility] [place] [id number] Care Team Providers Care Directional Driller Name Role Phone Mariluz Watts MD Primary Care Provider [phone] Reason for Visit * Reason Comments Rosacea Encounter Details Date Type Department Care Team (Late st Contact Info) Description 11/13/2011 2:20 PM EST [place] [address] Chayo Willingham MD [facility] DR [place] [address] Rosacea (Primary Dx); Sebaceous hyperplasia Discharge Disposition: [...] supervision with direct supervision immediately available. (definition: [facility] GME Policy Statement on Graduate Medical Education, [...] concerns. Chayo Willingham MD Resident in Dermatology [facility] Patient seen and evaluated with staff shop technician: Chetan Adrian MD Section of Dermatology [facility] documented in this encounter Plan of Treatment Upcoming Encounters Date Type Department Care Team (Late st Contact Info) Description 11/16/2024 1:00 PM EST Office [place] [address] Paula Harris PA [facility] [place] [address] 01/26/2025 9:50 AM EDT Appointment Mammography/DXA at [place] [phone] Joan Deutsch [facility] [place] [address] 01/26/2025 10:30 AM EDT Office [place] [phone] Joan Deutsch HORTICULTURE TEACHER [facility] [place] [address] documented as of this encounter Visit Diagnoses Diagnosis Rosacea- Primary Sebaceous hyperplasia Other specified disease of sebaceous glands documented in this encounter Care Teams Directional Driller Relationship Specialty Start Date End Date Mariluz Watts MD [address] [place] [address] 1 [place] [address] PCP - General 08/22/10 documented as of this encounter
--- OUTSIDE RECORDS SUMMARY | 2024-08-11 17:16 | XMS_ITS | Encounter Summary ---
Author Organization [facility] [place] [place] [address] Care Team Providers Care Cap Parts Cutter Name Role Phone Mariluz Watts MD Primary Care Provider [phone] Reason for Referral * Physical Therapy (Routine) - Complete - Patient Will Schedule External Appt Specialty Diagnoses / Procedures Referred By John lyons Referred To Contact Physical Therapy Diagnoses DJD (degenerative joint disease) of hip Ralph Ambrocio PA [facility] [place] [address] Referral ID Status Reason Start Date Expiration Date Visits Requested Visits Authorized [id number] Complete - Patient Will Schedule External Appt Evaluate and Treat 02/01/2012 07/30/2012 12 12 Encounter Details Date Type Department Care Team (Late st Contact Info) Description 02/01/2012 Orders Only [place] [address] Ralph Ambrocio PA [facility] [place] [address] DJD (degenerative joint disease) of [...] PM EST Office [place] [address] Paula Harris PA [facility] [place] [address] 01/26/2025 9:50 AM EDT Appointment Mammography/DXA at [place] [phone] Joan Deutsch APRN [facility] [place] [address] 01/26/2025 10:30 AM EDT Office Visit General Surgery at [place] [phone] Joan Deutsch APRN [facility] [place] [address] Scheduled Referrals Name Type Priority Associated Diagnoses Orde r Schedule REFERRAL TO PHYSICAL THERAPY Outpatient Referral Routine DJD (degenerative joint disease) of hip Ordered: 02/01/2012 documented as of this encounter Visit Diagnoses Diagnosis DJD (degenerative joint disease) of hip- Primary Osteoarthrosis, unspecified whether generalized or localized, pelvic region and thigh documented in this encounter Care Teams Cap Parts Cutter Relationship Specialty Start Date End Date Mariluz Watts MD [address] [place] [address] [address] [place] [address] PCP - General 08/22/10 documented as of this encounter
--- OUTSIDE RECORDS SUMMARY | 2024-08-11 17:16 | XMS_ITS | Encounter Summary ---
Author Organization [facility] [place] [address] Care Team Providers Care Dining Room Tables Set Up Attendant Name Role Phone Mariluz Watts MD Primary Care Provider [phone] Encounter Details Date Type Department Care Team (Late st Contact Info) Description 04/13/2011 Abstract [place] [address] Zenaida Dixon, RN Social History Tobacco Use [...] PM EST Office [place] [address] Paula Harris PA [facility] [place] [address] 01/26/2025 9:50 AM EDT Appointment Mammography/[place] [phone] Joan Deutsch [facility] [place] [address] 01/26/2025 10:30 AM EDT Office [place] [address] Joan Deutsch, [facility] [place] [address] documented as of this encounter Visit Diagnoses Not on filedocumented in this encounter Care Teams Dining Room Tables Set Up Attendant Relationship Specialty Start Date End Date Mariluz Watts MD [address] [place] [address] [address] [place] [address] PCP - General 08/22/10 documented as of this encounter
--- OUTSIDE RECORDS SUMMARY | 2024-08-11 17:16 | XMS_ITS | Encounter Summary ---
Author Organization [facility] [place] [address] Care Team Providers Care Laborer Drying Department Name Role Phone Mariluz Watts MD Primary Care Provider [phone] Encounter Details Date Type Department Care Team (Late st Contact Info) Description 04/03/2011 Abstract [place] [address] Lindy Mata RN Social History Tobacco Use [...] Office [place] [address] Paula Harris PA [facility] [place] [address] 01/26/2025 9:50 AM EDT Appointment Mammography[place] [address] Joan Deutsch, [facility] [place] [address] 01/26/2025 10:30 AM EDT Office [place] [address] Joan Deutsch, [facility] [place] [address] documented as of this encounter Visit Diagnoses Not on filedocumented in this encounter Care Teams Laborer Drying Department Relationship Specialty Start Date End Date Mariluz Watts MD [address] [place] [address] PCP - General 08/22/10 documented as of this encounter
--- OUTSIDE RECORDS SUMMARY | 2024-08-11 17:16 | XMS_ITS | Encounter Summary ---
Author Organization [facility] [place] [address] Care Team Providers Care Sodium Methylate Operator Name Role Phone Mariluz Watts MD Primary Care Provider [phone] Encounter Details Date Type Department Care Team (Late st Contact Info) Description 04/04/2010 Orders [place] [address] Gardenia Marquez MD [facility] [place] [address] Social History Tobacco Use Types Packs/Day Years Used Date Smoking Tobacco: Never Assessed [facility] Inpatient Questions Answer Date Recorded Does [...] Office Visit General Surgery at [place] [phone] Paula Harris PA [facility] [place] [address] 01/26/2025 9:50 AM EDT Appointment Mammography/DXA at [place] [phone] Joan Deutsch, [facility] [place] [address] 01/26/2025 10:30 AM EDT Office Visit General Surgery at [place] [phone] Joan Deutsch, INTERIOR DESIGN ASSISTANT [facility] [place] [address] documented as of this encounter Procedures Procedure Name Priority Date/Time Associated Diagnosis Comments SURGICAL PATHOLOGY REPORT Routine 04/04/2010 8:56 AM EDT documented in this encounter Results * Surgical Pathology Report (04/04/2010 8:56 AM EDT) Surgical Pathology Report [id number] ? Location: [facility] The signing pathologist has (i) [...] in rendering the final pathologic diagnosis. [facility] 04/04/2010 8:56 AM EDT Gardenia Marquez MD PATHOLOGY/CYTOLOGY ORDERABLES Performing Organization Address City/State/[facility] Co de Phone Number [facility] documented in this encounter Visit Diagnoses Not on filedocumented in this encounter Care Teams Sodium Methylate Operator Relationship Specialty Start Date End Date Mariluz Watts MD [address] [place] [address] PCP - General 08/22/10 documented as of this encounter
--- OUTSIDE RECORDS SUMMARY | 2024-08-11 17:16 | XMS_ITS | Encounter Summary ---
Author Organization [facility] [place] [address] Care Team Providers Care Oyster Preparer Name Role Phone Mariluz Watts MD Primary Care Provider [phone] Encounter Details Date Type Department Care Team (Latest Contact Info) Description 01/31/2012 1:06 PM EDT - 01/31/2012 11:59 PM EDT Hospital Encounter XRay at [address] [place] [address] CLINIC, Kian Stone MD [address] [address] Hip pain Discharge Disposition: Home Social History [...] Procedure: LEFT HIP INJECTION UNDER FLUOROSCOPY ACC#: [id number] Indication for Procedure: Left hip pain, degenerative [...] under fluoroscopy. Resident/Fellow: Dr. Devaughn Mcdonough (Pager #[phone]) Attending: Dr. Marly Torres ATTENDING ATTESTATION IMarly MD MS, supervised the resident/fellow during the hanna and critical portions of theprocedure and was immediately available throughout. documented in this encounter Plan of Treatment Upcoming Encounters Date Type Department Care Team (Late st Contact Info) Description 11/16/2024 1:00 PM EST Office [place] [address]-1000 Paula Harris PA [facility] [place] [address] 01/26/2025 9:50 AM EDT Appointment Mammography[place] [phone] Joan Deutsch APRN [facility] [place] [address] 01/26/2025 10:30 AM EDT Office [place] [address]-1000 Joan Deutsch APRN [facility] [place] [address] documented as of this encounter Procedures Procedure [...] HIP INJECTION UNDER FLUOROSCOPY ? ACC#: ?? [id number] ?Indication ?? for Procedure: Left hip pain, [...] fluoroscopy. ?Resident/Fellow: ?? Dr. Devaughn Mcdonough (Pager #[phone]) ? Attending: ?? Dr. Marly Torres ?ATTENDING [...] 1945 Procedure: LEFT HIP INJECTION UNDERFLUOROSCOPY ACC#: [id number] Indication for Procedure: Left hip pain, degenerative [...] jointinjection under fluoroscopy. Resident/Fellow: Dr. Devaughn Mcdonough (Pager#[phone]) Attending: Dr. Marly Torres ATTENDING ATTESTATION I, [...] EDT documented in this encounter Care Teams Oyster Preparer Relationship Specialty Start Date End Date Mariluz Watts MD [address] [facility] [address] [place] [address] PCP - General 08/22/10 documented as of this encounter
--- OUTSIDE RECORDS SUMMARY | 2024-08-11 17:16 | XMS_ITS | Encounter Summary ---
[place] [address] Care Team Providers Care Cook Larder Name Role Phone Mariluz Watts MD Primary Care Provider [phone] Reason for Visit * Reason Onset Date Comments Other 04/01/2012 Disability Paper work/[facility] Encounter Details Date Type Department Care Team (Late st Contact Info) Description 04/01/2012 Telephone [place]ology [place] [address] Gemini Lawrence RN [facility] Social History Tobacco Use Types Packs/Day [...] RN - 04/01/2012 8:59 AM EDT [facility] requested paperwork to evaluate a claim for Long-term Disability All records from 11/02/2011 copied. [employer] Disclosure Release form signed by patient. No genetic information included. Medical records mailed to: [employer] [place] Disability Claim Office [facility] [address] [address] [place] [address] Copy filed under Disabilty. documented in this encounter Plan of Treatment Upcoming Encounters Date Type Department Care Team (Late st Contact Info) Description 11/16/2024 1:00 PM EST Office [place] [phone] Paula Harris PA [facility] [place] [address] 01/26/2025 9:50 AM EDT Appointment Mammography/[place] [address]1000 Joan Deutsch [facility] [place] [address] 01/26/2025 10:30 AM EDT Office [place] [address] Joan Deutsch [facility] [place] [address] documented as of this encounter Visit Diagnoses Not on filedocumented in this encounter Care Teams Cook Larder Relationship Specialty Start Date End Date Mariluz Watts MD [address] [place] [address] PCP - General 08/22/10 documented as of this encounter
--- OUTSIDE RECORDS SUMMARY | 2024-08-11 17:16 | XMS_ITS | Encounter Summary ---
[place] [address] Care Team Providers Care Technical Sales Associate Name Role Phone Mariluz Watts MD Primary Care Provider Encounter Details Date Type Department Care Team (Late st Contact Info) Description 03/27/2011 10:49 AM EDT Anesthesia Event [place] [address] Chente Beck MD [facility] [place] [address] Anesthesia Record Procedure Summary Procedure Name Responsible [...] >3 FB Neck ROM: full Dental Comment: [place] dentition Pulmonary - negative ROS breath sounds clear to auscultation (-) asthma Cardiovascular - negative ROS (-) hypertension, past TX and murmur Rhythm: regular Rate: normal Neuro/Psych [...] PM EST Office Visit [place] [address]-1000 Paula Harris PA [facility] [place] [address] 01/26/2025 9:50 AM EDT Appointment Mammography/[place] [address]-1000 Joan Deutsch APRN [facility] [place] [address] 01/26/2025 10:30 AM EDT Office Visit [place] [address]-1000 Joan Deutsch APRN [facility] [place] [address] documented as of this encounter Visit Diagnoses Not on filedocumented in this encounter Care Teams Technical Sales Associate Relationship Specialty Start Date End Date Mariluz Watts MD [address] [place] [address] 1 [place] [address] PCP - General 08/22/10 documented as of this encounter
--- OUTSIDE RECORDS SUMMARY | 2024-08-11 17:16 | XMS_ITS | Encounter Summary ---
[place] [address] Care Team Providers Care Data Scientist Name Role Phone Mariluz Watts MD Primary Care Provider [phone] Encounter Details Date Type Department Care Team (Late st Contact Info) Description 11/01/2011 11:30 AM EST - 11/01/2011 11:59 PM [facility] Hospital [place] [address] Social History Tobacco Use Types Packs/Day Years [...] PM EST Office [place] [address]-1000 Paula Harris PA [facility] [place] [address] 01/26/2025 9:50 AM EDT Appointment Mammography/[place] [address]-1000 Joan Deutsch APRN [facility] [place] [address] 01/26/2025 10:30 AM EDT Office [place] [address] Joan Deutsch FREELANCE TRANSLATOR [facility] [place] [address] documented as of this encounter Procedures Procedure [...] filedocumented in this encounter Care Teams Data Scientist Relationship Specialty Start Date End Date Mariluz Watts MD [address] [place] [address] PCP - General 08/22/10 documented as of this encounter
--- OUTSIDE RECORDS SUMMARY | 2024-08-11 17:16 | XMS_ITS | Encounter Summary ---
Author Organization [facility] [place] [address] Care Team Providers Care Institute Scientist Name Role Phone Mariluz Watts MD Primary Care Provider [phone] Reason for Visit * Reason Onset Date Comments Medication Refill 04/04/2012 Encounter Details Date Type Department Care Team (Late st Contact Info) Description 04/04/2012 [place] [address] [facility] [place] [address] Rosacea Social History Tobacco Use Types Packs/Day [...] weekend. You can contact the pt at [phone]. She would like the RX sent to the [facility]. Thanks Debbi documented in this encounter Plan of Treatment Upcoming Encounters Date Type Department Care Team (Late st Contact Info) Description 11/16/2024 1:00 PM EST Office [place] [address] [facility] [place] [address] 01/26/2025 9:50 AM EDT Appointment Mammography/DXA at [place] [phone] [facility] [place] [address] 01/26/2025 10:30 AM EDT Office Visit General Surgery at [place] [phone] [facility] [place] [address] documented as of this encounter Visit Diagnoses Diagnosis Rosacea documented in this encounter Care Teams Institute Scientist Relationship Specialty Start Date End Date Mariluz Watts MD [address] [place] [address] [address] [place] [address] PCP - General 08/22/10 documented as of this encounter
--- OUTSIDE RECORDS SUMMARY | 2024-08-11 17:16 | XMS_ITS | Encounter Summary ---
[place] [address] Care Team Providers Care Director Dermatology Name Role Phone Mariluz Watts MD Primary Care Provider [phone] Encounter Details Date Type Department Care Team (Late st Contact Info) Description 08/16/2011 Telephone [place]ematology [place] [phone] Gemini Lawrence RN Social History Tobacco Use [...] Encounter - Gemini Lawrence RN - 08/16/2011 12:57 PM EST Diamond is changing pharmacy to [facility] and wishes medication to be mailed to her. [facility] aware of this. Script generated and pended for approval and signature on 08/14/2011. documented in this encounter Plan of Treatment Upcoming Encounters Date Type Department Care Team (Late st Contact Info) Description 11/16/2024 1:00 PM EST Office Visit General Surgery at [place] [phone] Paula Harris PA [facility] [place] [address] 01/26/2025 9:50 AM EDT Appointment Mammography/[place] [address] Joan Deutsch, [facility] [place] [address] 01/26/2025 10:30 AM EDT Office Visit General Surgery at [place] [phone] Joan Deutsch, [facility] [place] [address] documented as of this encounter Visit Diagnoses Not on filedocumented in this encounter Care Teams Director Dermatology Relationship Specialty Start Date End Date Mariluz Watts MD [address] [place] [address] PCP - General 08/22/10 documented as of this encounter
--- OUTSIDE RECORDS SUMMARY | 2024-08-11 17:16 | XMS_ITS | Encounter Summary ---
Author Organization [facility] [place] [address] Care Team Providers Care External Grinder Tool Name Role Phone Mariluz Watts MD Primary Care Provider [phone] Encounter Details Date Type Department Care Team (Latest Contact Info) Description 01/25/2012 2:17 PM EDT - 01/25/2012 11:59 PM EDT Hospital Encounter XRay at [address] [place] [address] S/P hip replacement; Left knee pain Social [...] Office Visit General Surgery at [place] [phone] Paula Harris PA [facility] [place] [address] 01/26/2025 9:50 AM EDT Appointment Mammography/[place] [phone] Joan Deutsch APRN [facility] [place] [address] 01/26/2025 10:30 AM EDT Office [place] [phone] Joan Deutsch APRN [facility] [place] [address] documented as of this encounter Procedures Procedure [...] alignment in the weight bearing position. Mechanical [place]: ??The patient is status post right total [...] quadriceps tendon or in the joint bursa. [place] view shows moderate lateral facet narrowing, right greater than left. Schuss views demonstrate gumthyce-es-ymmkuj left medial compartmental narrowing and mild osteophytosis. ?? PELVIS AND HIPS: COMPARISON: ??12/23/08. ?? FINDINGS: ??Patient is status post right noncemented hip arthroplasty. No heterotopic bone formation. No obvious signs of loosening or infection. Mild left hip osteoarthritis. The sacroiliac joints are within normal limits. No labral-type calcifications detected. ?? Procedure Note Devaugnh Barber MD - 02/12/2012 STANDING KNEE ALIGNMENT [...] extremity alignment inthe weight bearing position. Mechanical [place]: The patient is status post right total [...] the quadriceps tendon or in the jointbursa. [place] view shows moderate lateral facet narrowing, right greater thanleft. Schuss views demonstrate quaqvdzy-td-ihcjyk left medial compartmentalnarrowing and mild osteophytosis. PELVIS [...] leg documented in this encounter Care Teams External Grinder Tool Relationship Specialty Start Date End Date Mariluz Watts MD [address] [place] [address] PCP - General 08/22/10 documented as of this encounter
--- OUTSIDE RECORDS SUMMARY | 2024-08-11 17:16 | XMS_ITS | Encounter Summary ---
[place] [address] Care Team Providers Care Computer Repair Technician Name Role Phone Mariluz Watts MD Primary Care Provider [phone] Encounter Details Date Type Department Care Team (Late st Contact Info) Description 11/05/2011 Orders [place] [phone] Karine Vaca, RN Malignant neoplasm of breast [...] EST Office [place] [phone] Paula Harris, PA [facility] [place] [address] 01/26/2025 9:50 AM EDT Appointment Mammography/[place] [phone] Joan Deutsch APRN [facility] [place] [address] 01/26/2025 10:30 AM EDT Office [place] [phone] Joan Deutsch APRN [facility] [place] [address] documented as of this encounter Visit Diagnoses Diagnosis Malignant neoplasm of breast (female), unspecified site- Primary documented in this encounter Care Teams Computer Repair Technician Relationship Specialty Start Date End Date Mariluz Watts MD [address] [place] [address] PCP - General 08/22/10 documented as of this encounter
--- OUTSIDE RECORDS SUMMARY | 2024-08-11 17:16 | XMS_ITS | Encounter Summary ---
[place] [address] Care Team Providers Care Tool Operator Name Role Phone Mariluz Watts MD Primary Care Provider [phone] Encounter Details Date Type Department Care Team (Late st Contact Info) Description 01/25/2010 [place] [address] Cece Marrero MD [facility] [place] [address] Social History Tobacco Use Types Packs/Day Years [...] PM EST Office [place] [address] Paula Harris PA [facility] [place] [place] [address] 01/26/2025 9:50 AM EDT Appointment Mammography/[place] [phone] Joan Deutsch, [facility] [address] 01/26/2025 10:30 AM EDT Office [place] [address] Joan Deutsch, [facility] [place] [address] documented as of this encounter Procedures Procedure Name Priority Date/Time Associated Diagnosis Comments SURGICAL PATHOLOGY REPORT Routine 01/25/2010 11:49 AM EDT documented in this encounter Results * Surgical Pathology Report (01/25/2010 11:49 AM EDT) Surgical Pathology Report [id number] ? Location: OPW The signing pathologist has [...] MD PATHOLOGY/CYTOLOGY Susan HUGGINS Performing Organization Address City/State/[facility] Co de Phone Number VALERIE TOPETE documented in this encounter Visit Diagnoses Not on filedocumented in this encounter Care Teams Tool Operator Relationship Specialty Start Date End Date Mariluz Watts MD [address] [place] [address] PCP - General 08/22/10 documented as of this encounter
--- OUTSIDE RECORDS SUMMARY | 2024-08-11 17:16 | XMS_ITS | Encounter Summary ---
[place] [address] Care Team Providers Care Sound Effects Technician Name Role Phone Mariluz Watts MD Primary Care Provider Reason for Visit * Reason Comments Post-op Problem scar revision s/p BB R 03/27/11, redness and itching Encounter Details Date Type Department Care Team (Latest Contact Info) Description 04/03/2011 3:30 PM EDT Clinical Support [place] [address] NURSE, PLASTIC SURGERY Dermatitis (Primary Dx); Other [...] original note were not included. Welcome to 1Lay, your secure online access to your electronic medical record at [facility]. Using 1Lay you will be able to send messages to your providers, view your test results, renew prescriptions, schedule appointments, and much more. Follow these instructions to enter your personal 1Lay account for the first time: 1. Start your internet browser. Go to [email or web address] and click on the 1Lay link. 2. Click SIGN UP NOW to go to the NEW MEMBER SIGN UP page. 3. Enter your 1Lay Access Code exactly as it appears below. (You will not need this access code after you have completed the sign-up process.) ?? Your 1Lay Access Code: [email or web address] ?? Expires: 05/18/11 04:20 PM ?? IMPORTANT: This Access Code will on the above mentioned date. If you do not sign up before this date, you will need to request a new Access Code number. 4. Enter your Date of (mm/dd/yyyy) and zip code click SUBMIT to go to the next page. 5. Create a 1Lay identification (ID). This will be your 1Lay login ID and cannot be changed, so [...] know when new information is available in 1Lay. 9. Click SIGN UP to complete the process. You can now view your electronic medical record. If you have any questions about 1Lay or your Access Code, please call for [place], for [place] or for [place]. If you need technical support, please e-mail [email or web address]. Remember, myD-H is NOT for urgent needs! Always dial 911 for medical emergencies.[facility] Dermatitis: After Your Visit Your Care Instructions [...] help for plant rashes. ?? Try an ylbv-ujf-qmpinnv antihistamine such as diphenhydramine (Benadryl) or chlorpheniramine [...] more? Visit our health information library at [email or web address]. You can alsoview health information on Body & Soul, your personal patient account. Log in or sign up today. Enter F270 in the search box to learn more about Dermatitis: After Your Visit. ?? [phone] [employer]. Care instructions adapted under license by [facility]. This care instruction is for use with your licensed healthcare professional. If you have questions about a medical condition or this instruction, always ask your healthcare professional. [employer] disclaims any warranty or liability for your use of this information. Content Version: 8.9.60309; Last Revised: December 31, 2008 documented in this encounter Progress Notes * Marva Chang RN - 04/03/2011 4:14 PM EDT Client seen by this editorial writer for question of cellulitis at both [...] PM EST Office Visit General Surgery at [place] [phone] Paula Harris PA [facility] [place] [address] 01/26/2025 9:50 AM EDT Appointment Mammography/[place] [address] Joan Deutsch, GE [facility] [place] [address] 01/26/2025 10:30 AM EDT Office Visit General Surgery at [place] [phone] Joan Deutsch, GE [facility] [place] [address] documented as of this encounter Visit Diagnoses Diagnosis Dermatitis- Primary Contact dermatitis and other eczema, due to unspecified cause Other specified aftercare following surgery documented in this encounter Care Teams Sound Effects Technician Relationship Specialty Start Date End Date Mariluz Watts MD [address] [place] [address] PCP - General 08/22/10 documented as of this encounter
--- OUTSIDE RECORDS SUMMARY | 2024-08-11 17:16 | XMS_ITS | Encounter Summary ---
Author Organization [facility] [place] [address] Care Team Providers Care Flue Tile Press Operator Name Role Phone Mariluz Watts MD Primary Care Provider [phone] Encounter Details Date Type Department Care Team (Late st Contact Info) Description 10/19/2010 3:45 PM EST [place] [address] Ruben Oconnor MD [address] [place] [address] Discharge Disposition: Home Social History Tobacco Use [...] PM EST Office [place] [address] Paula Harris PA [facility] [place] [address] 01/26/2025 9:50 AM EDT Appointment Mammography/[place] [address] Joan Deutsch, [facility] [place] [place] [address] 01/26/2025 10:30 AM EDT Office [place] [address] Joan Deutsch, [facility] [place] [address] documented as of this encounter Visit Diagnoses Not on filedocumented in this encounter Care Teams Flue Tile Press Operator Relationship Specialty Start Date End Date Mariluz Watts MD [address] [place] [address] [address] [place] [address] PCP - General 08/22/10 documented as of this encounter
--- OUTSIDE RECORDS SUMMARY | 2024-08-11 17:16 | XMS_ITS | Encounter Summary ---
Author Organization [facility] [place] [address] Care Team Providers Care Aircraft Structural Repairer Name Role Phone Mariluz Watts MD Primary Care Provider [phone] Encounter Details Date Type Department Care Team (Latest Contact Info) Description 10/26/2010 12:42 PM EST - 10/26/2010 11:59 PM [facility] Hospital Encounter Hematology [place] [address] Abrahan Merlos MD [facility] HEMATOLOGY/[place] [address] Discharge Disposition: Home Social History Tobacco Use [...] PM EST Office [place] [phone] Paula Harris PA [facility] [place] [address] 01/26/2025 9:50 AM EDT Appointment Mammography/DXA at [place] [phone] Joan Deutsch DRYWALL PROFESSIONAL [facility] [place] [address] 01/26/2025 10:30 AM EDT Office Visit General Surgery at [place] [phone] Joan Deutsch [facility] [place] [address] documented as of this encounter Visit Diagnoses Not on filedocumented in this encounter Care Teams Aircraft Structural Repairer Relationship Specialty Start Date End Date Mariluz Watts MD [address] [place] [address] PCP - General 08/22/10 documented as of this encounter
--- OUTSIDE RECORDS SUMMARY | 2024-08-11 17:16 | XMS_ITS | Encounter Summary ---
Author Organization [facility] [place] [address] Care Team Providers Care Doctor Of Veterinary Medicine Name Role Phone Mariluz Watts MD Primary Care Provider [phone] Encounter Details Date Type Department Care Team (Late st Contact Info) Description 03/24/2010 Orders Only [place] [address] Gardenia Marquez MD [facility] [place] [address] Social History Tobacco Use Types Packs/Day Years Used Date Smoking Tobacco: Never Assessed [facility] Inpatient Questions Answer Date [...] PM EST Office Visit [place] [address] Paula Harris PA [facility] [place] [address] 01/26/2025 9:50 AM EDT Appointment Mammography/DXA at [place] [phone] Joan Deutsch, GE [facility] [place] [address] 01/26/2025 10:30 AM EDT Office Visit [place] [address] Joan Deutsch, ENTERPRISE PROJECT MANAGER [facility] [place] [address] documented as of this encounter Procedures Procedure Name Priority Date/Time Associated Diagnosis Comments SURGICAL PATHOLOGY REPORT Routine 03/24/2010 2:44 PM EDT documented in this encounter Results * Surgical Pathology Report (03/24/2010 2:44 PM EDT) Pathologist [facility] Surgical Pathology Report [id number] ? Location: [facility]; [facility][note 3]6; A The signing pathologist has (i) examined [...] FISH. ??Direct analysis was performed using the SnowBallysion Kit. ??Slide adequacy and signal enumeration were [...] Clinical Information kSpecimen Submitted: A - Right Menno node, Right Axilla B - Left Breast [...] 4.0 x 0.8 x 0.8 cm. Sections/Processing: ??Hotel Custodian sections are submitted as follows: ?(1) red margin; (2-3) leather goods sales representative section, slice VII, including deep [...] of interspersed, castillo- white breast tissue. Sections/Processing: ??Hotel Custodian sections are submitted with green ink ?markings in (1-5) and foci of breast tissue and ?adipose in (6-8). ??(R8) ??aje/PPS Microscopic Description Slides reviewed, microscopic description not recorded. Diagnosis Specimen (s): ??A - Right Menno node ? C - Right Partial Mastectomy ? E - Right Breast Cranial Margin ? 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 Tubular Differentiation: ?? [...] nodes: ? 2 ??(Specimen A - Right Menno node) ?? No. positive for carcinoma: ??1 ??(H&E) ?? No. with IHC (+) cells only: 0 ??(cells not seen by H&E, see Note*) ?? No. negative for carcinoma: ??1 ??(both H&E and IHC) ?For positive nodes: ?Largest kristi deposit ?? 0.2 cm ?Extranodal extension ?Absent Estrogen/Progestin receptors: ?? Performed on blocks C2 and C11 ?? ER immunoreactivity: ? Positive (see Diagnostic hanna*) ?? ME immunoreactivity: ? 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 Fibrocystic disease [...] on filedocumented in this encounter Care Teams Doctor Of Veterinary Medicine Relationship Specialty Start Date End Date Mariluz Watts MD [address] [place] [address] 1 [place] [address] PCP - General 08/22/10 documented as of this encounter
--- OUTSIDE RECORDS SUMMARY | 2024-08-11 17:16 | XMS_ITS | Encounter Summary ---
Author Organization [facility] [place] [address] Care Team Providers Care Marketing Specialist Name Role Phone Mariluz Watts MD Primary Care Provider [phone] Reason for Visit * Reason Comments Follow-up Encounter Details Date Type Department Care Team (Late st Contact Info) Description 11/01/2011 3:00 PM EST Follow-Up Hematology [place] [address] CLINIC, DR KATARINA Merlos, Abrahan Chavarria MD [facility] DR HEMATOLOGY/[place] [address] Breast cancer, stage 2 (Primary Dx) Discharge [...] level at that time. Abrahan Merlos MD rubber goods inspector tester in Hematology-Oncology documented in this encounter Miscellaneous Notes * Communication Body - Abrahan Merlos MD - 11/01/2011 3:48 PM EST documented in this encounter Plan of Treatment Upcoming Encounters Date Type Department Care Team (Late st Contact Info) Description 11/16/2024 1:00 PM EST Office Visit General Surgery at [place] [phone] Paula Harris PA [facility] [place] [address] 01/26/2025 9:50 AM EDT Appointment Mammography/[place] [address] Joan Deutsch WAFER MOUNTER [facility] [place] [address] 01/26/2025 10:30 AM EDT Office Visit General Surgery at [place] [phone] Joan Deutsch WAFER MOUNTER [facility] [place] [address] documented as of this encounter Results * VIT D Total 25 Hydroxy (05/02/2012 1:09 PM EDT) Vitamin D Total 25 OH 41 30 - 100 ng/mL [facility] Comment: Deficient <10 ng/mL Insufficient 10 to [...] Hydroxy assays are being analyzed by the [facility] Chemistry [facility]. ??There is NO CHANGE in units. ??Please contact the chemistry laboratory at [phone] with questions. Blood specimen (specimen) 05/02/2012 1:09 PM EDT 05/02/2012 1:11 PM EDT Narrative Resulting Agency Comment Spec In Lab Abrahan Merlos MD CHEMISTRY ORDERABLES VALERIE DYERENNIUM * Hepatic Function Panel (05/02/2012 1:09 PM EDT) Pathologist [facility] Protein, Total 6.8 6.4 - 8.3 gm/dL [...] site documented in this encounter Care Teams Marketing Specialist Relationship Specialty Start Date End Date Mariluz Watts MD [address] [place] [address] PCP - General 08/22/10 documented as of this encounter
--- OUTSIDE RECORDS SUMMARY | 2024-08-11 17:16 | XMS_ITS | Encounter Summary ---
[place] [address] Care Team Providers Care Accounting Clerks Supervisor Name Role Phone Mariluz Watts MD Primary Care Provider [phone] Encounter Details Date Type Department Care Team (Late st Contact Info) Description 02/09/2010 [place] [address] Bella Dowling MD [facility] [place] [address] Social History Tobacco Use Types Packs/Day Years [...] PM EST Office Visit General Surgery at [place] [phone] Paula Harris PA [facility] [place] [address] 01/26/2025 9:50 AM EDT Appointment Mammography/DXA at [place] [phone] Joan Deutsch, OPHTHALMIC TECHNICIAN APPRENTICE [facility] [place] [address] 01/26/2025 10:30 AM EDT Office Visit General Surgery at [place] [phone] Joan Deutsch, GE [facility] [place] [address] documented as of this encounter Procedures Procedure Name Priority Date/Time Associated Diagnosis Comments SURGICAL PATHOLOGY REPORT Routine 02/09/2010 11:33 AM EDT documented in this encounter Results * Surgical Pathology Report (02/09/2010 11:33 AM EDT) Surgical Pathology Report [id number] ? Location: 3K The signing pathologist has [...] diagnosis. Comment Deeper levels on A2 examined. [facility] 02/09/2010 11:3 3 AM EDT Bella Dowling MD PATHOLOGY/CYTOLOGY O RDERABLES [facility] documented in this encounter Visit Diagnoses Not on filedocumented in this encounter Care Teams Accounting Clerks Supervisor Relationship Specialty Start Date End Date Mariluz Watts MD [address] [place] [address] PCP - General 08/22/10 documented as of this encounter
--- OUTSIDE RECORDS SUMMARY | 2024-08-11 17:16 | XMS_ITS | Encounter Summary ---
Author Organization [facility] [place] [address] Care Team Providers Care Information Technology Coordinator Name Role Phone Mariluz Watts MD Primary Care Provider [phone] Encounter Details Date Type Department Care Team (Late st Contact Info) Description 02/29/2012 12:00 PM EDT - 02/29/2012 1:00 PM EDT Surgery [place] [address] Gallito Lincoln MD [facility] [place] [address] COLONOSCOPY, DIAGNOSTIC (WRVU 3.26) Social History Tobacco [...] this encounter Discharge Instructions * Discharge Instructions* hSaila Lezama RN - 02/29/2012 1:01 PM EDT Please call [phone], before 5pm with problems, questions or concerns, after 5pm call the Hospital at [phone] and ask to speak to the Firmware Developer front loader residential driver and the laundry press operator will contactthat person for you. Discharge [...] * COLONOSCOPY: WHAT TO EXPECT AT HOME (WOLOF) documented in this encounter Medications at Time [...] EST Office [place] [phone] Paula Harris PA [facility] [place] [address] 01/26/2025 9:50 AM EDT Appointment Mammography/[place] [address] Joan Deutsch, [facility] [place] [address] 01/26/2025 10:30 AM EDT Office [place] [address] Joan Deutsch APRN [facility] [place] [address] documented as of this encounter Procedures Procedure Name Priority Date/Time Associated Diagnosis Comments COLONOSCOPY Routine 02/29/2012 12:01 PM EDT COLONOSCOPY, DIAGNOSTIC (WRVU 3.26) 02/29/2012 11:39 AM EDT 5YR RESCOPE documented in this encounter Results * COLONOSCOPY (02/29/2012 12:01 PM EDT) [facility] Signature COLONOSCOPY [facility] Endoscopy Patient Name: Diamond Gaming ? Procedure Date: 02/29/2012 12:01 PM ? Date of : 1945 ? Age: 66 ? Order #: [id number] ? Procedure: ? Colonoscopy Indications: ? Follow-up for history of adenomatous ? polyps in the colon Providers: ? Gallito Lincoln MD, Anu Schafer, ? Margret MAURO, Manager Wind Referring : ?Mariluz Watts MD Medicines: ? [...] RN) documented in this encounter Care Teams Information Technology Coordinator Relationship Specialty Start Date End Date Mariluz Watts MD [address] [place] [address] PCP - General 08/22/10 documented as of this encounter
--- OUTSIDE RECORDS SUMMARY | 2024-08-11 17:16 | XMS_ITS | Encounter Summary ---
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 earlier this year, she has been recently diagnosed with hypermobility syndrome and she was under the impression that the echo was done for that reason. Social history: She lives alone, she has her son and xoiplltr-hz-ehy live in close by. She drives. She [...] radiographs from 2005,although she is not yet atvh-ud-lgvk she has lost approximately 50% of her [...] PM EST Office [place] [phone] Paula Harris PA [facility] [place] [address] 01/26/2025 9:50 AM EDT Appointment Mammography/[place] [phone] Joan Deutsch APRN [facility] [place] [address] 01/26/2025 10:30 AM EDT Office Visit [place] [address] Joan Deutsch APRN [facility] [place] [address] documented as of this encounter Procedures Procedure [...] (Bezet) 412 ms MUSE SYSTEM Calculated P [place]ams 58 degrees MUSE SYSTEM Calculated R [place]hams -26 degrees MUSE SYSTEM Calculated T [place]hams 37 degrees MUSE SYSTEM INTERPRETATION Sinus rhythm [...] GAMING ?Ordered By: NICK RUIZ ? MR#: [id number] ?LOC: ??4V ? /Sex: ??1945 (66 years), [...] Urine Dipstick Clear Clear [facility]ERNER MILLENNIUM Specific [place] Urine Automated 1.017 1.002 - 1.030 CERNER MILLENNIUM Color, Urine Dipstick Yellow Yellow [facility] MILLENNIUM RBC, Urine <1 0 - 4 /HPF [facility]ER MILLENNIUM WBC, Urine 1 0 - 5 /HPF [facility] MILLENNIUM Urine specimen (specimen) 07/08/2012 1:07 PM EDT 07/08/2012 1:21 PM EDT Narrative Resulting Agency Comment Spec In Lab Nick Ruiz MD URINE ORDERABLES [facility] * Hemoglobin A1c (07/08/2012 12:50 PM EDT) Hemoglobin A1c 5.5 4.3 - 6.1 % [facility]ERNER MILLENNIUM Estimated Average Glucose 111 mg/dL [facility] Comment: eAG equivalents for HbA1c percentages: [...] into estimated average glucose values. ??Diabetes Care 2008:31(8):0193-4855. Blood specimen (specimen) 07/08/2012 12:50 PM EDT 07/08/2012 1:21 PM EDT Narrative Resulting Agency Comment Spec In Lab Nick Ruiz MD CHEMISTRY ORDERABLES Performing Organization Address [facility] Phone Number [facility] * Protein, total (07/08/2012 12:50 PM EDT) [facility] Protein, Total 6.9 6.4 - 8.3 gm/dL [facility] Blood specimen (specimen) 07/08/2012 12:50 PM EDT 07/08/2012 1:21 PM EDT Narrative Resulting Agency Comment Spec In Lab Nick Ruiz MD CHEMISTRY ORDERABLES Performing Organization Address [facility] Phone Number [facility] * Albumin Level (07/08/2012 12:50 PM EDT) [facility] Albumin 4.7 3.2 - 5.2 gm/dL [facility] Blood specimen (specimen) 07/08/2012 12:50 PM EDT 07/08/2012 1:21 PM EDT Narrative Resulting Agency Comment Spec In Lab Nick Ruiz MD CHEMISTRY ORDERABLES Performing Organization Address [facility] Phone Number [facility] * High Sensitivity CRP (07/08/2012 12:50 PM [...] MD HEMATOLOGY ORDERABLE S Performing Organization Address [facility] de Phone Number [facility] * APTT (07/08/2012 12:50 PM EDT) Partial Thromboplastin Time 30 25 - 35 sec [facility] Comment: Recommended therapeutic PTT range for full dose unfractionated heparin is 80-114 seconds. Blood specimen (specimen) 07/08/2012 12:50 PM EDT 07/08/2012 1:21 PM EDT Narrative Resulting Agency Comment Spec In Lab Authorizing Provider Result Froy Ruiz MD HEMATOLOGY ORDERABLE S Performing Organization Address [facility] Phone [facility] * Prothrombin Time (07/08/2012 12:50 PM EDT) Prothrombin Time 12.6 11.9 - 14.7 sec [facility] Comment: [facility] Transfusion Committee Guidelines: INR less than 2.0, PTT less than OR equal to 43.5 seconds, or Fibrinogen greater than or equal to 100 mg/dl indicate adequate procoagulant activity for hemostasis in patients without underlying bleeding disorders. International Normalization Ratio 0.9 0.9 - 1.1 [facility] Blood specimen (specimen) 07/08/2012 12:50 PM EDT 07/08/2012 1:21 PM EDT Narrative Resulting Agency Comment Spec In Lab Authorizing Provider Result Froy Ruiz MD HEMATOLOGY ORDERABLE S Performing Organization Address [facility] de Phone Number [facility] * Basic Metabolic Panel (non-fasting) (07/08/2012 12:50 PM EDT) Glucose 93 60 - 199 mg/dL [facility] Comment:Diabetes: >=200 mg/d L plus symptoms Blood Urea Nitrogen 14 8 - 18 mg/dL [facility] Creatinine 0.74 0.70 - 1.20 mg/dL [facility] Comment: Please note that the pediatric reference intervals supplied above were not validated at [facility]. Results from pediatric patients [...] Nick Ruiz MD HEMATOLOGY ORDERABLE S [facility] documented in this encounter Visit Diagnoses Diagnosis DJD (degenerative joint disease) of hip- Primary Osteoarthrosis, unspecified whether generalized or localized, pelvic region and thigh DJD (degenerative joint disease) of hip Osteoarthrosis, unspecified whether generalized or localized, pelvic region and thigh documented in this encounter Care Teams Dredge Captain Relationship Specialty Start Date End Date Mariluz Watts MD [address] [place] [address] PCP - General 08/22/10 documented as of this encounter
--- OUTSIDE RECORDS SUMMARY | 2024-08-11 17:17 | XMS_ITS | Encounter Summary ---
Author Organization [facility] [place] [address] Care Team Providers Care Hazardous Substances Engineer Name Role Phone Mariluz Watts MD Primary Care Provider [phone] Encounter Details Date Type Department Care Team (Late Contact Info) Description 03/06/2005 Orders Only Orthopaedics at [facility] [address] [place] [address] Kian Ervin MD [address] [facility] [place] [address] Social History Tobacco Use Types Packs/Day Years [...] PM EST Office [place] [address] Paula Harris PA [facility] [address] 01/26/2025 9:50 AM EDT Appointment Mammography/[place] [address] Joan Deutsch, GE [facility] [place] [address] 01/26/2025 10:30 AM EDT Office [place] [address] Joan Deutsch, GE [facility] [place] [address] documented as of this encounter Procedures Procedure Name Priority Date/Time Associated Diagnosis Comments SURGICAL PATHOLOGY REPORT Routine 03/06/2005 1:39 PM EDT documented in this encounter Results * Surgical Pathology Report (03/06/2005 1:39 PM EDT) Surgical Pathology Report [id number] ? Location: [facility]; 0304; B The signing pathologist has [...] on filedocumented in this encounter Care Teams Hazardous Substances Engineer Relationship Specialty Start Date End Date Mariluz Watts MD [address] [place] [address] PCP - General 08/22/10 documented as of this encounter
--- OUTSIDE RECORDS SUMMARY | 2024-08-11 17:17 | XMS_ITS | Encounter Summary ---
Author Organization [facility] Address [address] [place] [address] Care Team Providers Care Collar Folder Operator Name Role Phone Mariluz Watts MD Primary Care Provider [phone] Encounter Details Date Type Department Care Team ([facility] st Contact Info) Description 05/12/2021 Lab Requisition [facility] Pathology & Laboratory Medicine - [address] [address] Outr Resulting Lab, Provider Social History Tobacco Use Types Packs/Day Years Used Date Smoking Tobacco: Never Assessed Comments Unknown Sex and Gender Information Value Date Recorded Sex Assigned at Not on file Legal Sex Female 17:52 EST Gender Identity Not on file Sexual Orientation [...] Neg and Giardia Antigen Neg 11:50 EDT [facility] Feces SPECIMEN FROM RECTUM / Unknown 05/11/2021 19:50 EDT 05/12/2021 16:43 EDT us Provider Outr Resulting Lab MICROBIOLOGY - GENER AL ORDERABLES Final Result Performing Organization Address [facility]/State/ZIP Co de Phone Number [facility] [address] [place] [address] documented in this encounter Visit Diagnoses Not on filedocumented in this encounter Care Teams Collar Folder Operator Relationship Specialty Start Date End Date Mariluz Watts MD [address] [place] [phone] PCP - General Family Medicine - Primary Care 12/26/22 documented as of this encounter
--- OUTSIDE RECORDS SUMMARY | 2024-08-11 17:17 | XMS_ITS | Encounter Summary ---
Author Organization [facility] Address [address] [place] [address] Care Team Providers Care Manager R D Name Role Phone Unavailable Primary Care Provider Unavailabl e Encounter Details Date Type Department Care Team ([facility] [address] Contact Info) Description 12/06/2008 Before PRISM Converted Visit (Maple) [facility] conversion [address] [place] [address] Mariluz Watts MD [facility] [address] [place] [address] Social History Tobacco Use Types [...] [facility] Report Status Final 12/15/2008 [facility] 12/06/2008 10:0 1 EDT 12/10/2008 10:01 EDT us Mariluz Watts MD MICROBIOLOGY - GENERAL ABE CARBALLO Final Result [facility] [address] [place] [address] * CYTOPATHOLOGY (12/06/2008 0:00 EDT) Pathology Report: CYTOPATHOLOGY REPORT ? Reports generated via electronic interface contain original data; ? however they are lacking the format of the original report. ? Caution should be taken when reading/interpreti ng unformatted reports. ? Name: ? DIAMOND GAMING ? Accession #: ? [id number] ? : ? 1945 (Age: 62) ??F ?Collect Date: ? 12/06/2008 ? Location: ? [facility] ? Receive Date: ? 12/07/2008 ? Provider: ?MARILUZ M DOBBERTIN MD ? Copy to: ? Specimen/Source: ?Pap Test, Endocervix, ThinPrep Imaging System with ? manual evaluation ? 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 PAPER CONE MAKER ? Other: ? HPVDX - HPV testing requested regardless of diagnosis on current ThinPrep Pap ?? test. ? SPECIMEN ADEQUACY ? Satisfactory for Evaluation ? - transformation zone component present ? GENERAL CATEGORIZATION ? Negative for Intraepithelial Lesion or Malignancy ? Document reviewed and electronically signed by: ? Devaughn Stumler, CT(ASCP) ? Report Date: ??12/09/2008 14:52 ? End of Report ? [facility] 12/06/2008 12/07/2008 us Mariluz Watts MD PATHOLOGY ORDERABLES Final Result [facility] [address] [place] [address] documented in this encounter Visit Diagnoses Not on filedocumented in this encounter
--- OUTSIDE RECORDS SUMMARY | 2024-08-11 17:17 | XMS_ITS | Encounter Summary ---
Author Organization [facility] Address [address] [place] [address] Care Team Providers Care Negative Restorer Name Role Phone Mariluz Watts MD Primary Care Provider [phone] Encounter Details Date Type Department Care Team ([facility] st Contact Info) Description 05/15/2021 Lab Requisition [facility] Pathology & Laboratory Medicine - [address] [address] Outr Resulting Lab, Provider Social History Tobacco [...] Neg and Giardia Antigen Neg 10:12 EDT [facility] Feces SPECIMEN FROM RECTUM / Unknown 05/14/2021 18:00 EDT 05/15/2021 16:39 EDT us Provider Outr Resulting Lab MICROBIOLOGY - GENER AL ORDERABLES Final Result Performing Organization Address [facility]/State/ZIP Co de Phone Number [facility] [address] [place] [address] documented in this encounter Visit Diagnoses Not on filedocumented in this encounter Care Teams Negative Restorer Relationship Specialty Start Date End Date Mariluz Watts MD [address] [place] [phone] PCP - General Family Medicine - Primary Care 12/26/22 documented as of this encounter
--- OUTSIDE RECORDS SUMMARY | 2024-08-11 17:17 | XMS_ITS | Clinical Summary ---
Author Organization [facility] Address [address] [place] [address] Care Team Providers Care Fire Equipment Inspector Helper Name Role Phone Mariluz Watts MD Primary Care Provider [phone] Social History Tobacco Use Types Packs/Day Years Used Date Smoking Tobacco: Never Assessed Comments Unknown Sex and Gender Information Value Date Recorded Sex Assigned at Not on file Legal Sex Female 17:52 EST Gender Identity Not on file Sexual Orientation Not on file Plan of Treatment Health Maintenance Due Date Last Done Comments Hepatitis C Screen 1945 Fall Risk Screening 12/16/2012 RSV Immunization ( o r 60+ Years) (1 - 1-dose 75+ series) 12/16/2022 COVID-19 Vaccine ( season) 2024 Care Teams Fire Equipment Inspector Helper Relationship Specialty Start Date End Date Mariluz Watts MD [address] [place] [address] [address] [place] [phone] PCP - General Family Medicine - Primary Care 12/26/22
--- OUTSIDE RECORDS SUMMARY | 2024-08-11 17:17 | XMS_ITS | Encounter Summary ---
Author Organization [facility] Address [address] [place] [address] Care Team Providers Care Hasher Operator Name Role Phone Mariluz Watts MD Primary Care Provider [phone] Encounter Details Date Type Department Care Team ([facility] st Contact Info) Description 05/12/2021 Lab Requisition [facility] Pathology & Laboratory Medicine - [address] [address] Outr Resulting Lab, Provider Social History Tobacco [...] ova and parasites seen. 05/15/2021 14:51 EDT [facility] Feces SPECIMEN FROM RECTUM / Unknown 05/11/2021 19:50 EDT 05/12/2021 16:44 EDT Narrative [facility] - 05/15/2021 14:51 EDT (If Cryptosporidium, Cyclospora, or Microsporidium are suspected, specific tests must be requested.) Single negative specimen does not rule out the possibility of a parasitic infection. us Provider Outr Resulting Lab MICROBIOLOGY - GENER AL ORDERABLES Final Result [facility] [address] [place] [address] documented in this encounter Visit Diagnoses Not on filedocumented in this encounter Care Teams Hasher Operator Relationship Specialty Start Date End Date Mariluz Watts MD [address] [place] [address] [address] [place] [phone] PCP - General Family Medicine - Primary Care 12/26/22 documented as of this encounter
--- OUTSIDE RECORDS SUMMARY | 2024-08-11 17:17 | XMS_ITS | Encounter Summary ---
Author Organization [facility] [place] [address] Care Team Providers Care Forming Yardage Control Operator Name Role Phone Mariluz Watts MD Primary Care Provider [phone] Encounter Details Date Type Department Care Team (Late st Contact Info) Description 01/27/2007 Orders [place] [address] Arcenio Carrion MD [facility] GASTRO[place] [address] Social History Tobacco Use Types Packs/Day Years [...] PM EST Office Visit General Surgery at [place] [phone] Paula Harris PA [facility] [place] [address] 01/26/2025 9:50 AM EDT Appointment Mammography/DXA at [place] [phone] Joan Deutsch, [facility] [address] 01/26/2025 10:30 AM EDT Office Visit General Surgery at [place] [phone] Joan Deutsch, SPRINKLER FITTER [facility] DR [place] [address] documented as of this encounter Procedures Procedure Name Priority Date/Time Associated Diagnosis Comments SURGICAL PATHOLOGY REPORT Routine 01/27/2007 5:27 PM EDT documented in this encounter Results * Surgical Pathology Report (01/27/2007 5:27 PM EDT) Pathologist [facility] Surgical Pathology Report [id number] ? Location: The signing pathologist has (i) [...] report in rendering the final pathologic diagnosis. [facility] 01/27/2007 5:27 PM EDT Arcenio Carrion MD PATHOLOGY/CYTOLOGY O RDERABLES Performing Organization Address City/State/[facility] Co de Phone Number [facility] documented in this encounter Visit Diagnoses Not on filedocumented in this encounter Care Teams Forming Yardage Control Operator Relationship Specialty Start Date End Date Mariluz Watts MD [address] [place] [address] [address] [facility] [address] [place] [address] PCP - General 08/22/10 documented as of this encounter
--- OUTSIDE RECORDS SUMMARY | 2024-08-11 17:17 | XMS_ITS | Encounter Summary ---
Author Organization [facility] Address [address] [place] [address] Care Team Providers Care General Foreman Name Role Phone Unavailable Primary Care Provider Unavailabl e Encounter Details Date Type Department Care Team ([facility] Contact Info) Description 12/25/2012 Results Only [facility] Laboratory Services - [facility] ([facility] [address] [place], [place] [phone] Mariluz Watts MD [address] [place] [address] [address] [place] [address] Social History Tobacco Use Types [...] ? DIAMOND GAMING ? Accession #: ? [id number] ? : ? 1945 (Age: 67) ??F [...] and electronically signed by: ? Jammie Hooper, CT(ASCP)(IAC) ? Report ??Date: 12/31/2012 16:42 HPV with Pap Test ? Date Ordered: ? 12/31/2012 ? Status: ?? Signed Out ?Date Complete: ? 01/02/2013 ? By: ??System Interface ? Date Reported: ? 01/02/2013 ? Interpretation RESULT: Negative for HPV. No E6 or E7 mRNA is detected from HPV types 16,18,31,33,35, 39,45,51,52,56,58, 59,66, and 68 by booky mediated amplification. Comments Document reviewed and electronically signed by: ? System Interface ? Report date: 01/02/2013 By the signature above, the attending physician certifies that he/she has personally conducted a gross and/or microscopic examination of the described specimens and rendered or confirmed the above diagnosis. End of Report [facility] 12/25/2012 12/26/2012 us Mariluz Watts MD PATHOLOGY ORDERABLES Final Result Performing Organization Address City/State/[facility] Co de Phone Number [facility] [address] [place] [address] documented in this encounter Visit Diagnoses Not on filedocumented in this encounter
--- OUTSIDE RECORDS SUMMARY | 2024-08-11 17:17 | XMS_ITS | Encounter Summary ---
Author Organization [facility] Address [address] [place] [address] Care Team Providers Care Alignment Technician Name Role Phone Mariluz Watts MD Primary Care Provider [phone] Encounter Details Date Type Department Care Team ([facility] st Contact Info) Description 12/14/2022 Lab Requisition [facility] Pathology & Laboratory Medicine - [address] [address] Mariluz Watts MD [address] [place] [address] [address] [place] [id number] Encounter for other general examination Social History [...] types, PCR Negative Negative 12/25/2022 15:51 EDT [facility] Comment:No E6 or E7 mRNA is detected from HPV types 16,18,31,33,35,39,45,51,52,56,58,59,66, and 68 by laborer petroleum refinery mediated amplification. Papanicolaou smear specimen (specimen) CERVIX UTERI STRUCTURE / Unknown 12/10/2022 11:30 EDT 12/23/2022 10:39 EDT us Mariluz Watts MD MICROBIOLOGY - GENERAL ABE CARBALLO Final Result [facility] [address] [place] [address] * PAP TEST (12/10/2022 11:30 EDT) Specimens A. Cervix and/or Endocervix , ThinPrep Imaging System with Manual Evaluation 12/25/2022 15:51 EDT [facility] Specimen Adequacy Satisfactory for Evaluation - assessment of transformation zone component not applicable ( e.g. atrophy, vaginal sample, hysterectomy) 12/25/2022 15:51 EDT [facility] General Categorization Negative for intraepithelial lesion or malignancy 12/25/2022 15:51 T [facility] Attestation . 12/25/2022 15:51 T [facility] at 1551 Clinical History See below 12/26/19 23 15:51 EDT [facility] HPV The result for the Human Papillomavirus (HPV) Detection-High Risk Types is Negative. No E6 or E7 mRNA is detected from HPV types 16,18,31,33,35,39 ,45,51,52,56,58,5 9,66, and 68 by laborer petroleum refinery mediated amplification.Ange ting was performed on specimen [id number] and was resulted on 12/25/2022 1551 EDT by GINETTE, LAB INSTRUMENT RESULTS IN 12/25/2022 15:51 EDT [facility] Performing Lab [facility] 12/25/2022 15:51 EDT [facility] Scanned Images 12/25/2022 15:51 EDT [facility] Papanicolaou smear specimen (specimen) CERVIX UTERI STRUCTURE / Unknown 12/10/2022 11:30 EDT 12/14/2022 9:18 EDT us Mariluz Watts MD PATHOLOGY ORDERABLES Final Result [facility] [address] [place] [address] documented in this encounter Visit Diagnoses Diagnosis Encounter for other general examination documented in this encounter Care Teams Alignment Technician Relationship Specialty Start Date End Date Mariluz Watts MD [address] [place] [address] PCP - General Family Medicine - Primary Care 12/26/22 documented as of this encounter
--- OUTSIDE RECORDS SUMMARY | 2024-08-11 17:17 | XMS_ITS | Encounter Summary ---
Author Organization [facility] Address [address] [place] [address] Care Team Providers Care General Store Manager Name Role Phone Mariluz Watts MD Primary Care Provider [phone] Encounter Details Date Type Department Care Team ([facility] st Contact Info) Description 12/31/2023 Lab Requisition [facility] Pathology & Laboratory Medicine - [address] [address] Outr Resulting Lab, Provider Social History Tobacco [...] Neg and Giardia Antigen Neg 11:14 EDT [facility] Feces SPECIMEN FROM RECTUM / Unknown 12/31/2023 11:30 EDT 12/31/2023 21:53 EDT us Provider Outr Resulting Lab MICROBIOLOGY - GENER AL ORDERABLES Final Result Performing Organization Address [facility] de Phone Number [facility] [address] [place], [place] [id number] * FECAL BACTERIAL PATHOGENS BY PCR (12/31/2023 11:30 EDT) Salmonella PCR Negative Negative 01/01/2024 15:04 EDT [facility] Shigella/Enteroin vasive E. coli Negative Negative 01/01/2024 15:04 EDT [facility] HN LAB CAMPYLOBACTER PCR Negative Negative 01/01/2024 15:04 EDT [facility] Shiga Toxin PCR Negative Negative 15:04 EDT [facility] Feces SPECIMEN FROM RECTUM / Unknown 12/31/2023 11:30 EDT 12/31/2023 21:53 EDT us Provider Outr Resulting Lab MICROBIOLOGY - GENER AL ORDERABLES Final Result Performing Organization Address [facility] Co de Phone Number [facility] [address] [place] [phone] documented in this encounter Visit Diagnoses Not on filedocumented in this encounter Care Teams General Store Manager Relationship Specialty Start Date End Date Mariluz Watts MD [address] [place] [phone] PCP - General Family Medicine - Primary Care 12/26/22 documented as of this encounter
--- OUTSIDE RECORDS SUMMARY | 2024-08-11 17:17 | XMS_ITS | Encounter Summary ---
Author Organization [facility] Address [address] [place] [address] Care Team Providers Care Sledger Name Role Phone Unavailable Primary Care Provider Unavailabl e Encounter Details Date Type Department Care Team (Latest Contact Info) Description 02/21/2001 13:54 EDT Hospital Encounter [address] [address] Celia Modi CFNP Rowlett, Irene M, KILN PUSHER Discharge Disposition: Auto Discharge Social History Tobacco [...] Procedure Name Priority Date/Time Associated Diagnosis Comments MA MAMMOGRAPHIC SCREEN ANDRES Routine 02/21/2001 15:07 EDT [...] ?? HX CYSTS LT BR ?? [PCP SIMON CHARLES, JEFRY MODI] Comparison is [...] Celia Modi [facility] IM MAMMOGRAPHY ORDERABLES Fi nal Result documented in this encounter Visit Diagnoses Not on filedocumented in this encounter
--- OUTSIDE RECORDS SUMMARY | 2024-08-11 17:17 | XMS_ITS | Encounter Summary ---
[place] [address] Care Team Providers Care Senior Energy Analyst Name Role Phone Mariluz Watts MD Primary Care Provider [phone] Encounter Details Date Type Department Care Team (Late st Contact Info) Description 01/10/2004 [place] [address] Gallito Travis MD [facility] [place] [address] Social History Tobacco Use Types Packs/Day Years [...] PM EST Office [place] [address] Paula Harris PA [facility] [place] [address] 01/26/2025 9:50 AM EDT Appointment Mammography/[place] [phone] Joan Deutsch, [facility] [place] [address] 01/26/2025 10:30 AM EDT Office [place] [address] Joan Deutsch, [facility] [place] [address] documented as of this encounter Procedures Procedure Name Priority Date/Time Associated Diagnosis Comments SURGICAL PATHOLOGY REPORT Routine 01/10/2004 9:35 AM EDT documented in this encounter Results * Surgical Pathology Report (01/10/2004 9:35 AM EDT) Surgical Pathology Report [id number] ? Location: [facility]W The signing pathologist has (i) examined the relevant preparation(s) for the specimen(s) and (ii) rendered or confirmed the diagnosis(es). . ?Pathology Surgical Pathology Final Report Clinical Information Specimen Submitted: A - Right breast Clinical History: Oval well defined mass CD: FA vs cyst (FCD) vs ca. Report to: Mariluz Watts MD [facility] [address] [place] [address] Gross Description Labeled/Fixativ e: ? Right breast, [...] filedocumented in this encounter Care Teams Senior Energy Analyst Relationship Specialty Start Date End Date Mariluz Watts MD [address] [place] [address] PCP - General 08/22/10 documented as of this encounter
--- OUTSIDE RECORDS SUMMARY | 2024-08-11 17:17 | XMS_ITS | Encounter Summary ---
Author Organization [facility] Address [address] [place] [address] Care Team Providers Care Salesperson Recreational Vehicles Name Role Phone Unavailable Primary Care Provider Unavailabl e Encounter Details Date Type Department Care Team (Latest Contact Info) Description 03/12/2001 7:45 EDT - 03/12/2001 11:59 EDT Hospital Encounter [address] [address] Celia Modi CFNP Discharge Disposition: Auto Discharge [...] Name Priority Date/Time Associated Diagnosis Comments TOR[place]O [place]ARDEN DIAG DIGITAL UNILATERAL ADDED VIEWS Routine 03/12/2001 8:12 EDT documented in this encounter Results * MA SULEIMAN DIAG DIGITAL UNILATERAL ADDED VIEWS (03/12/2001 8:12 [...] END OF IMPRESSION Celia GOLDSMITH IMG MAMMOGRAPHY ORDERABLES Fi nal Result documented in this encounter Visit Diagnoses Not on filedocumented in this encounter
--- OUTSIDE RECORDS SUMMARY | 2024-08-11 17:17 | XMS_ITS | Encounter Summary ---
Author Organization [facility] Address [address] [place] [address] Care Team Providers Care Conventional Machinist Name Role Phone Unavailable Primary Care Provider Unavailabl e Encounter Details Date Type Department Care Team ([facility] st Contact Info) Description 11/25/2006 Results Only [facility] [address] [place] [address] Mariluz Watts MD [address] [place] [address] Social History Tobacco Use Types [...] ng unformatted reports. Name: ? LESA DIAMOND A ? Accession #: ? [id number] : ? 1945 (Age: 60) ??F ?Collect Date: ? 11/25/2006 Location: ? [facility] ? Receive Date: ? 11/27/2006 Provider: ?MARILUZ WATTS MD Copy to: ? Specimen/Source: ?ThinPrep Pap Test, Endocervix, processed on [employer] ThinPrep Imaging System, with manual evaluation Last [...] End of Report [facility] 11/25/2006 11/27/2006 us Mariluz Watts MD PATHOLOGY ORDERABLES Final Result [facility] [address] [place] [address] documented in this encounter Visit Diagnoses Not on filedocumented in this encounter
--- OUTSIDE RECORDS SUMMARY | 2024-08-11 17:17 | XMS_ITS | Encounter Summary ---
Author Organization [facility] Address [address] [place] [address] Care Team Providers Care Retail Parts Pro Name Role Phone Unavailable Primary Care Provider Unavailabl e Encounter Details Date Type Department Care Team ([facility] st Contact Info) Description 12/18/1999 Results Only [facility] - Maple conversion [address] [place] [address] Thea Charlton, HILARIA Social History Tobacco Use Types Packs/Day Years [...] when reading/interpreti ng unformatted reports. Name: ? LESA, DIAMOND Dotson ? Accession #: ? [id number] : ? 1945 (Age: 54) ??F ?Collect Date: ? 12/18/1999 Location: ?Receive Date: ? 12/18/1999 Provider: ?THEA CHARLTON NP Copy to: ?THEA CHARLTON NP ? Specimen/Source: ?Pap Smear (One Slide) Last Menstrual Period: ? GYNECOLOGIC ??CYTOPATHOLOGY ??REPORT Name: DIAMOND GAMING Mauri ? FA[facility] : 1945 ?? 54Y F ?Client ID: [id number] SS#: [id number] ? Clinician: TEMITOPE CHARLTON NP ?? Location: [facility] ??Copy to: ?? Specimen: ?Pap Smear (One [...] Whitehead, SCT(ASCP) ? Report Date: ?? 12/21/1999 [employer] Archived Tests - Final Diagnosis Text Field: Clinical History : ? Document reviewed and electronically signed by: ? Conversion ? Report Date: ??12/21/1999 00:00 End of Report [facility] KO 12/18/1999 8:33 EST 12/18/1999 8:34 EST us Thea Charlton GRINDING AND SPRAYING SUPERVISOR PATHOLOGY ORDERABLES Final Re sult [facility] [address] [place] [address] documented in this encounter Visit Diagnoses Not on filedocumented in this encounter
--- OUTSIDE RECORDS SUMMARY | 2024-08-11 17:17 | XMS_ITS | Referral Summary ---
Author Organization [facility] Address [address] [place] [address] Care Team Providers Care Portuguese Tutor Name Role Phone Mariluz Watts MD Primary Care Provider [phone] Social History Tobacco Use Types Packs/Day Years Used Date Smoking Tobacco: Never Assessed Comments Unknown Sex and Gender Information Value Date Recorded Sex Assigned at Not on file Legal Sex Female 17:52 EST Gender Identity Not on file Sexual Orientation Not on file Plan of Treatment Not on file Care Teams Portuguese Tutor Relationship Specialty Start Date End Date Mariluz Watts MD [address] [place] [address] [address] [place] [phone] PCP - General Family Medicine - Primary Care 12/26/22
--- OUTSIDE RECORDS SUMMARY | 2024-08-11 17:17 | XMS_ITS | Encounter Summary ---
Author Organization [facility] Address [address] [place] [address] Care Team Providers Care Self Pay Representative Name Role Phone Unavailable Primary Care Provider Unavailabl e Encounter Details Date Type Department Care Team ([facility] Contact Info) Description 05/02/2017 Results Only [facility] [phone] Mariluz Watts MD [address] [place] [address] Social History Tobacco Use Types [...] ? DIAMOND GAMING ? Accession #: ? [id number] ? : ? 1945 (Age: 71) ??F [...] ?? Menstrual/Pregnanc y Status: ??Post Menopausal Other: Spot Remover Clinical/Treatment Hx - None Additional clinical information: [...] types 16,18,31,33,35, 39,45,51,52,56,58, 59,66, and 68 by anthropometrist mediated amplification. Comments Document reviewed and electronically signed by: ? System Interface ? Report date: 05/14/2017 By the signature above, the attending physician certifies that he/she has personally conducted a gross and/or microscopic examination of the described specimens and rendered or confirmed the above diagnosis. End of Report [facility] 05/02/2017 05/03/2017 us Mariluz Watts MD PATHOLOGY ORDERABLES Final Result [facility] [address] [place] [address] documented in this encounter Visit Diagnoses Not on filedocumented in this encounter
--- OUTSIDE RECORDS SUMMARY | 2024-08-11 17:17 | XMS_ITS | Encounter Summary ---
Author Organization [facility] Address [address] [place] [address] Care Team Providers Care Clinical Documentation Consultant Name Role Phone Mariluz Watts MD Primary Care Provider [phone] Encounter Details Date Type Department Care Team ([facility] st Contact Info) Description 11/01/2020 Lab Requisition [facility] Pathology & Laboratory Medicine - [facility] [address] [place] [address] Outr Resulting Lab, Provider Social History Tobacco [...] Unknown 11/01/2020 8:30 EST 11/01/2020 16:03 EST us Provider Outr Resulting Lab MICROBIOLOGY - GENER AL ORDERABLES Final Result [facility] [address] [place] [address] * COVID-19 TESTING (11/01/2020 8:30 EST) COVID-19 rt-PCR Result Negative Negative 11/02/2020 12:29 EST [facility] Comment: This test was developed and its performance characteristics determined by [facility]. It has not been cleared or [...] testing. This test is based on the [facility] COVID-19 Emergency Use Authorization (EUA) assay, with minor modification as defined by the FDA Performed on the [employer] Pro RT-PCR System. Negative results do not preclude 2019-nCoV infection and should not be used as the sole basis for treatment or other patient management decisions. Negative results must be combined with clinical observations, patient history, and epidemiological information. Performing Lab [facility] 11/02/2020 12:29 EST [facility] Swab 11/01/2020 8:30 EST 11/01/2020 16:03 EST us Provider Outr Resulting Lab MICROBIOLOGY - GENER AL ORDERABLES Final Result [facility] [address] [place] [address] documented in this encounter Visit Diagnoses Not on filedocumented in this encounter Care Teams Clinical Documentation Consultant Relationship Specialty Start Date End Date Mariluz Watts MD [address] [place] [address] [address] [place] [address] PCP - General Family Medicine - Primary Care 12/26/22 documented as of this encounter
--- OUTSIDE RECORDS SUMMARY | 2024-08-11 17:17 | XMS_ITS | Encounter Summary ---
Author Organization [facility] Address [address] [place] [address] Care Team Providers Care Executive Compensation Analyst Name Role Phone Mariluz Watts MD Primary Care Provider [phone] Encounter Details Date Type Department Care Team ([facility] st Contact Info) Description 01/17/2022 Lab Requisition [facility] Pathology & Laboratory Medicine - [facility] [address] [place] [address] Outr Resulting Lab, Provider Social History Tobacco [...] 01/16/2022 20:1 1 EDT 01/17/2022 20:09 EDT us Provider Outr Resulting Lab MICROBIOLOGY - GENER AL ORDERABLES Final Result [facility] [address] [place] [address] * COVID-19 TESTING (01/16/2022 20:11 EDT) COVID-19 rt-PCR Result Negative Negative 01/18/2022 12:27 EDT [facility] Comment: This test has [...] was performed using the shanelle SARS-CoV-2 assay ([employer] on the Shanelle 6800 System Performing Lab Shanelle 68[address] [facility] 01/18/2022 12:27 EDT [facility] Swab 01/16/2022 20:1 1 EDT 01/17/2022 20:09 EDT us Provider Outr Resulting Lab MICROBIOLOGY - GENER AL ORDERABLES Final Result [facility] [address] [place] [address] documented in this encounter Visit Diagnoses Not on filedocumented in this encounter Care Teams Executive Compensation Analyst Relationship Specialty Start Date End Date Mariluz Watts MD [address] [place] [phone] PCP - General Family Medicine - Primary Care 12/26/22 documented as of this encounter
--- OUTSIDE RECORDS SUMMARY | 2024-08-11 17:17 | XMS_ITS | Encounter Summary ---
Author Organization [facility] Address [address] [place] [address] Care Team Providers Care Ball Machine Operator Name Role Phone Unavailable Primary Care Provider Unavailabl e Encounter Details Date Type Department Care Team (Latest Contact Info) Description 01/17/2000 13:45 EDT Hospital Encounter [facility] - [address] [address] Thea Charlton, AIRWAY CONTROLLER Discharge Disposition: Auto Discharge Social History Tobacco [...] Procedure Name Priority Date/Time Associated Diagnosis Comments [place] MAMMOGRAPHIC SCREEN ANDRES Routine 01/17/2000 14:26 EDT [...] 08/09/2009 9:12 EST ROUTINE,HX CYSTS,NO NEW PROBLEMS (SIMON MELVIN,LAVELLE MODI,REQ) Comparison is made to films from 12-07-1998, [...] - 08/09/2009 ROUTINE,HX CYSTS,NO NEW PROBLEMS (LAVELLE PRAJAPATI,REQ) Comparison is made to films from 12-07-1998, [...] OVERALL ASSESSMENT - BENIGN END OF IMPRESSION Celia Modi [facility] MAMMOGRAPHY ORDERABLES Fi nal Result documented in this encounter Visit Diagnoses Not on filedocumented in this encounter
--- OUTSIDE RECORDS SUMMARY | 2024-08-11 17:17 | XMS_ITS | Encounter Summary ---
Author Organization [facility] Address [address] [place] [address] Care Team Providers Care Nitriles Lab Technician Name Role Phone Mariluz Watts MD Primary Care Provider [phone] Encounter Details Date Type Department Care Team ([facility] st Contact Info) Description 05/12/2021 Lab Requisition [facility] Pathology & Laboratory Medicine - [address] [address] Outr Resulting Lab, Provider Social History Tobacco [...] Salmonella PCR Negative Negative 05/12/2021 21:36 EDT [facility] Shigella/Enteroin vasive E. coli Negative Negative 05/12/2021 21:36 EDT [facility] HN LAB CAMPYLOBACTER PCR Negative Negative 05/12/2021 21:36 EDT [facility] Shiga Toxin PCR Negative Negative 21:36 EDT [facility] Feces SPECIMEN FROM RECTUM / Unknown 05/11/2021 19:50 EDT 05/12/2021 16:44 EDT us Provider Outr Resulting Lab MICROBIOLOGY - GENER AL ORDERABLES Final Result [facility] [address] [place] [address] documented in this encounter Visit Diagnoses Not on filedocumented in this encounter Care Teams Nitriles Lab Technician Relationship Specialty Start Date End Date Mariluz Watts MD [address] [place] [address] PCP - General Family Medicine - Primary Care 12/26/22 documented as of this encounter
--- OUTSIDE RECORDS SUMMARY | 2024-08-11 17:17 | XMS_ITS | Encounter Summary ---
Author Organization [facility] Address [address] [place] [address] Care Team Providers Care Morgue Technician Name Role Phone Unavailable Primary Care Provider Unavailabl e Encounter Details Date Type Department Care Team ([facility] st Contact Info) Description 02/05/2001 Results Only [facility] - Maple conversion [address] [place] [address] Thea Charlton, HILARIA Social History Tobacco Use [...] ng unformatted reports. Name: ? LESA DIAMOND Dotson ? Accession #: ? [id number] : ? 1945 (Age: 55) ??F ?Collect Date: ? 02/05/2001 Location: ? [facility] ? Receive Date: ? 02/06/2001 Provider: ?THEA CHARLTON CONCRETE CARPENTER Copy to: ? Specimen/Source: ?Conventional Pap Test, Cervix/Endocervix Last Menstrual Period: ? 12/22/00 ? SPECIMEN ADEQUACY ? Satisfactory for evaluation. GENERAL CATEGORIZATION ? Within Normal Limits ? Document reviewed and electronically signed by: ? Julianne Whitehead, SCT(ASCP) ? Report Date: ??02/07/2001 10:09 End of Report [facility] 02/05/2001 02/06/2001 us Thea Charlton NP PATHOLOGY ORDERABLES Final Re sult [facility] KO [address] [place] [address] documented in this encounter Visit Diagnoses Not on filedocumented in this encounter
== END 2024-08-11 17:07 | disposition home or self-care (01) ==
LOC: LBN 17:06
PROVIDERS: PCP Family Medicine; Visit Provider Family Medicine
DX: N39.0 Urinary tract infection, site not specified (principal); D64.9 Anemia, unspecified
CPT/HCPCS: 87077; 81003; 81015; 87086; 87186

== ENCOUNTER → 2024-09-07 07:49 | Outpatient (BNVA) | payer MEDICARE, SELFPAY | PROVIDERS: PCP Family Medicine; Referring Provider Family Medicine; Visit Provider Nurse Practitioner Gerontology | DX: N39.41 Urge incontinence (principal); Z87.440 Personal history of urinary (tract) infections | CPT/HCPCS: 51798; 99213 ==

== ENCOUNTER 2024-09-22 09:03 | Emergency (ER) | payer MEDICARE, SELFPAY ==
[2024-09-22] VITALS (15 sets, daily range): BP systolic 105–139; BP diastolic 59–98; PULSE 67–95; RESP 9–20; TEMP 36.4–36.5; O2SAT 92–98
--- NOTE | 2024-09-22 09:55 | ED.GENADUL_ITS ---
Discharge Plan Disposition Patient Disposition: Home Condition: Stable Discharge Details Clinical Impression: BRBPR (bright red blood per rectum), Diverticulosis Primary Care Provider: Mariluz Watts ED Provider: Verna Szymanski Home Meds and New Rx's Prescriptions: No Action ascorbic acid (vitamin C) 500 mg capsule 500 mg PO DAILY calcium carb-mag ox-zinc sulf 333-133-5 mg tablet 1 tab PO DAILY Rx Instructions: administer with a meal azelaic acid 15 % gel 1 applic topical DIRECTED melatonin 5 mg tablet 10 mg PO HS PRN thiamine HCl (vitamin B1) 100 mg tablet 100 mg PO DAILY cyanocobalamin (vitamin B-12) 1,000 mcg capsule 1,000 mcg PO DAILY sulfamethoxazole-trimethoprim [Bactrim] 400-80 mg tablet 1 tab PO QHS Qty: 90 0RF Rx Instructions: start after completing current course of antibiotics acetaminophen [Tylenol Extra Strength] 500 mg tablet 1,000 mg PO TID cholecalciferol (vitamin D3) 25 mcg (1,000 unit) capsule 4,000 unit PO DAILY ferrous sulfate 100 mg tablet 100 mg PO DAILY Qty: 100 0RF clindamycin phosphate 1 % solution 1 applic topical DAILY PRN (Reason: eczema) Qty: 60 4RF metronidazole [Metrogel] 1 % gel 1 applic Topical DAILY PRN (Reason: rosacea) Qty: 180 5RF Rx Instructions: [facility] mupirocin 2 % ointment 1 applic TP BID PRN (Reason: rash) Qty: 15 2RF ropinirole 0.5 mg tablet 0.5 mg PO QHS Qty: 90 3RF omeprazole 20 mg capsule,delayed release(DR/EC) 20 mg PO DAILY Qty: 90 4RF escitalopram oxalate 20 mg tablet 20 mg PO DAILY Qty: 90 4RF Discharge Instructions Instructions: Bloody Stools, Adult ED Additional Instructions: You were seen in the emergency department today for evaluation of bleeding from your rectum, concerning for a lower GI bleed. In our department a full physical examination performed, had laboratory studies that did not show any sign of anemia or other concerning abnormalities, and had a CT scan that did not identify the area of active bleeding. You do have diverticular disease, and this is a common cause of lower GI bleeding. You passed a nonbloody stool, and did not have evidence of active bleeding on your CT. As we discussed, you are desiring to discharge home and this is reasonable provided that you are cautious about monitoring your stools and returning for ongoing bleeding, dizziness or loss of consciousness, abdominal pain, or any other symptoms that cause you concern. You also need to call your automatic quilling machine operator to schedule a follow-up colonoscopy. Thank you for allowing us to be part of your care. Discharge Data Discharge Date/Time-TO BE ENTERED AT DEPARTURE: 09/22/24 11:04 HPI General Mode of arrival: ambulatory . Date/Time Provider Initiated Documentation: 09/22/24 09:06 . Limitations to Documentation: no limitations . Information obtained by: patient, family and old records reviewed . HPI Narrative: HPI: This is a 78-year-old female patient with a past medical history significant for atrial fibrillation, not on anticoagulation, sleep apnea, anemia, and a history of diverticulosis, presenting for evaluation of bright red blood per rectum. The patient reports that she began with GI bleeding during a bowel movement this morning, estimates 150 to 200 cc of bright red blood in the toilet this morning. She had an episode like this once before, thought to be a diverticular bleed, that required admission and blood transfusion. She reports that her bleeding is painless, she has not had abdominal pain, nausea or vomiting. She did have an episode of norovirus earlier this month and has had persistent intermittent diarrhea, did have some diarrhea 2 days ago and took some Imodium. 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 The patient does not take any anticoagulant medications or have any history of bleeding disorders. She reports that she last had a colonoscopy in 2022. She has a history of hiatal hernia for which she takes Prilosec. The patient reports that in the context of her last GI bleed she had an episode of syncope, states that she currently feels like she has a mild headache, has not had any episodes of fainting this morning. Exam: Gen: Awake and alert, in no apparent distress HEENT: Non-icteric sclera Neck: Supple Lungs: No apparent respiratory distress, normal respiratory effort. CV: Appears well perfused, strong distal pulses Abdomen: Non-distended, soft, nontender : Rectal examination supervised by NJ Delgado, revealing normal external anus, bright red blood on the glove, no palpable internal hemorrhoids MSK: Moves 4 extremities without apparent limitation in ROM Skin: Visualized skin without rashes, cyanosis. Neuro: Normal Gait, no obvious focal deficits or facial asymmetry. Speaks in full, clear sentences. Psych: Appropriate for situation. MDM: This is a 78-year-old female patient presenting for evaluation of bright red blood per rectum. Differential includes but is not limited to lower GI bleed including diverticular bleed, AVM, hemorrhoidal bleed. Considered coagulopathy, as well as brisk upper GI bleed. The patient is reassuringly abdominal pain-free, making mesenteric ischemia, aortic pathology, diverticulitis less likely. Considered anemia, dehydration and kidney injury. We will obtain laboratory studies to include CBC, CMP, magnesium, troponin, type and screen, INR. I will obtain a CTA of the abdomen and pelvis to evaluate for active bleed ED Course: I independently interpreted the laboratory studies, which show no significant leukocytosis, anemia, or thrombocytopenia. The chemistry panel is without evidence of electrolyte abnormality, kidney dysfunction, or liver injury. INR 1.1, troponin negative. CTA was reviewed by myself, showing extensive diverticulosis but no evidence of diverticulitis nor active GI bleed. I shared these findings with the patient. We did have an extended shared decision-making conversation, she does have some risk factors for rebleeding and readmission including her age, her prior GI bleed requiring admission, though she has had a bowel movement here in the emergency department that was not bloody. The patient is greatly desiring of discharge home, lives close to the hospital and has reliable transportation to return if she has recurrence of her symptoms. As she is not anemic, not actively bleeding, and hemodynamically appropriate I feel that this is a reasonable course of action. The patient also has the ability to follow-up with GI at [facility], and will call to schedule a colonoscopy and repeat evaluation. At this time, the patient has had a full medical evaluation and is safe for discharge to home. They are hemodynamically stable, ambulatory, and tolerating PO. They are understanding of the follow-up plan and return precautions. They left our facility without incident. Verna Szymanski MD Related Data Home Medications ?Medication ?Instructions ?Recorded ?Confirmed ascorbic acid (vitamin C) 500 mg 500 mg PO DAILY 04/05/20 09/22/24 capsule acetaminophen 500 mg tablet 1,000 mg PO TID 05/02/21 09/22/24 (Tylenol Extra Strength) calcium 333 mg 1 tab PO DAILY 05/02/21 09/22/24 (carbonate)-magnesium 133 mg-zinc 5 mg (sulfate) tablet cholecalciferol (vitamin D3) 25 4,000 unit PO DAILY 05/02/21 09/22/24 mcg (1,000 unit) capsule clindamycin phosphate 1 % topical 1 applic topical DAILY PRN eczema 10/10/21 09/22/24 solution #60 mL metronidazole 1 % topical gel 1 applic topical DAILY PRN rosacea 10/10/21 09/22/24 (Metrogel) #180 grams mupirocin 2 % topical ointment 1 applic topical BID PRN rash #15 10/10/21 09/22/24 grams ferrous sulfate 100 mg PO DAILY #100 tabs 12/18/22 09/22/24 azelaic acid 15 % topical gel 1 applic topical DIRECTED 04/25/23 09/22/24 rosacea cyanocobalamin (vitamin B-12) 1,000 mcg PO DAILY 06/03/24 09/22/24 1,000 mcg capsule melatonin 5 mg tablet 10 mg PO HS PRN 06/03/24 09/22/24 thiamine HCl (vitamin B1) 100 mg 100 mg PO DAILY 06/03/24 09/22/24 tablet escitalopram oxalate 20 mg tablet 20 mg PO DAILY #90 tabs 09/03/24 09/22/24 omeprazole 20 mg capsule,delayed 20 mg PO DAILY #90 caps 09/03/24 09/22/24 release ropinirole 0.5 mg tablet 0.5 mg PO QHS #90 tabs 09/03/24 09/22/24 sulfamethoxazole 400 1 tab PO QHS UTI prevention #90 09/07/24 09/22/24 mg-trimethoprim 80 mg tablet tabs (Bactrim) Previous Rx's ?Medication ?Instructions ?Recorded clindamycin phosphate 1 % topical 1 applic topical DAILY PRN eczema 10/10/21 solution #60 mL metronidazole 1 % topical gel 1 applic topical DAILY PRN rosacea 10/10/21 (Metrogel) #180 grams mupirocin 2 % topical ointment 1 applic topical BID PRN rash #15 10/10/21 grams ferrous sulfate 100 mg PO DAILY #100 tabs 12/18/22 escitalopram oxalate 20 mg tablet 20 mg PO DAILY #90 tabs 09/03/24 omeprazole 20 mg capsule,delayed 20 mg PO DAILY #90 caps 09/03/24 release ropinirole 0.5 mg tablet 0.5 mg PO QHS #90 tabs 09/03/24 sulfamethoxazole 400 1 tab PO QHS UTI prevention #90 09/07/24 mg-trimethoprim 80 mg tablet tabs (Bactrim) Allergies Allergy/AdvReac Type Severity Reaction Status Date / Time bee venom protein (honey bee) Allergy Severe Anaphylaxsi Verified 09/22/24 09:30 s Tetracyclines Allergy Severe Anaphylaxsi Verified 09/22/24 09:30 s trazodone AdvReac Severe Psychosis Verified 09/22/24 09:30 General Stated Complaint: GI Bleed CHELLY: 3 Course Vital Signs Vital signs: Vital Signs Temperature 36.4 C 09/22/24 09:07 Pulse 94 H 09/22/24 09:07 Respiratory Rate 13 09/22/24 09:07 Blood Pressure 139/95 H 09/22/24 09:07 Pulse Oximetry 97 09/22/24 09:07 Temperature 36.4 C 09/22/24 09:07 Temperature Source Oral 09/22/24 09:07 Pulse 94 H 09/22/24 09:07 Respiratory Rate 13 09/22/24 09:07 Blood Pressure 139/95 H 09/22/24 09:07 Blood Pressure Position Supine 09/22/24 09:07 Pulse Oximetry 97 09/22/24 09:07 Oxygen Delivery Method Room Air 09/22/24 09:07 Oxygen Flow Rate 0 09/22/24 09:07 Pain Level 0 09/22/24 09:07 Medical Decision Making Quality:SDOH Health Related Social Needs: No Data to Display PFSH All Active Problems (Updated 09/22/24 @ 10:50 by Verna Szymanski MD) Diverticulosis (Acute) BRBPR (bright red blood per rectum) (Acute) Decreased hearing of both ears (Acute) Overactive bladder (Acute) Decreased hearing (Acute) Memory changes (Acute) Recurrent UTI (Chronic 12/31/17) Low ferritin (Acute) Arthritis of right glenohumeral joint (Acute) Sleep apnea (Acute) Shoulder pain, right (Acute) Bleeding disorder (Acute) Atrial fibrillation (Chronic) Urinary incontinence (Acute) Vitamin D deficiency (Acute) Hallux valgus (acquired), right foot (Acute) Encounter for annual physical exam (Acute) Bladder irritability (Acute) Hypercholesteremia (Acute) Hiatal hernia (Chronic) Depression (Chronic) Iron deficiency anemia (Chronic) thought to be secondary to large hiatal hernia; requires lifelong iron and PPI Anxiety (Chronic) 12/31/17 OPAL-7 SCORE=12 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 Gastrointestinal hemorrhage 09/30/05 Vertigo 12/06/11 Acute upper respiratory infection 12/01/[address] scan of the sinus Metatarsalgia 06/25/13 surgery 09/2013 Dupuytren's disease 07/03/13 Sepsis due to urinary tract infection 07/25/15 stone Degeneration of intervertebral disc (06/16/13) L5-S1 Depressive disorder (05/10/09) Diverticulosis of colon without diverticulitis 2000; 2006; 2011, 02/2017, 08/2022 Internal hemorrhoids Knee pain left; MRI 09/03-posterior horn meniscal tear and decrease cartilage Malignant neoplasm of female breast metastatic Marfan syndrome Polyp of colon per colonoscopy 2006; Reflux gastritis (09/14/14) Urgency incontinence (02/12/17) Vitamin D deficiency (07/16/08) Surgical History History of eyelid surgery Bilateral H/O cystoscopy S/P tonsillectomy Ligation of fallopian tube (~1993) Total replacement of hip 2004 RIGHT;2010 LEFT Tonsillectomy Meniscectomy 2005 LEFT KNEE GLASS REMOVAL 1970 RIGHT KNEE Colonoscopy - IV Sedation (02/29/12) 2000,2006, 2011,2016, 08/2022 Family History Mother , LEUKEMIA at age 87. CLL (chronic lymphocytic leukemia) Arthritis Father , UNKNOWN at age 93. Dementia Hyperlipidemia Brother Diabetes TYPE 2 Kidney disease Maternal Grandfather No problems noted. Paternal Grandfather Prostate cancer Maternal Grandmother Heart disease Son Asthma Social History (Updated 12/18/22 @ 19:52 by Mariluz Watts MD, [place]) Smoking/Tobacco Use Status: Former Tobacco Use tobacco type: cigarettes Quit Date: 09/30/1968 Tobacco: How many years used: 3 Second Hand Exposure: No Smoking risk assessment performed?: Yes Alcohol Intake: former Drug use: Never Substance use type: does not use and other Details: marijuana for sleep in past Household members: family and children Housing: house Communication Needs: None Do you need help understanding health information?: Always Pets and animals: Yes Pets and animals: dog(s) and other Sexually active: No Do you think of yourself as: Asexual Current gender identity: female What is your relationship status?: How often do you talk on the phone with friends or family?: three or more times per week How often do you get together with friends or relatives?: three or more times per week Do you belong to any clubs or organized social groups?: yes Panel score (0-1 are the most socially isolated patients): 2 What type of physical activity do you participate in: walking, aerobic and bicycling Duration: 30-45 minutes/day Frequency: 5-6 times per week Eliza/Caodaism: No preference Special eliza needs: No Seatbelt use: always Helmet use: Yes Helmet use: always Drive intox or ride w/intox stock driver: No Do you feel safe at home: Yes Do you feel safe in your relationship?: Yes
[2024-09-22 10:00] LABS: Abs Immature Grans 0.02 10^3/uL (0.0-0.06); Absolute Basophil Count 0.03 10^3/uL (0.0-0.2); Absolute Lymphocyte Count 1.25 10^3/uL (1.2-3.4); Absolute Monocyte Count 0.46 10^3/uL (0.1-0.8); Absolute Neutrophil Count 3.17 10^3/uL (1.2-6.7); Basophils % 0.6 %; HCT 43.7 % (36.0-46.0); HGB 14.4 g/dL (11.2-15.7); Immature Grans % 0.4 %; Lymphocytes % 24.9 %; MCH 29.9 pg (27.0-33.0); MCV 91 fL (80-95); MPV 10.6 fL (8.0-11.0); Monocytes % 9.1 %; Platelet Count 190 10^3/uL (130-400); RBC 4.82 10^6/uL (3.93-5.22); RDW 12.2 % (11.7-14.6); RDW-SD 40.6 fL; WBC 5.03 10^3/uL (4.4-10.8)
[2024-09-22] MEDS: Normal Saline - Diluent 50 ML VIAL IJ (10:03)
[2024-09-22] MEDS: Omnipaque 350 MG/ML 500 ML BTL-Imaging package 100 ML IJ (10:08)
[2024-09-22 10:10] LABS: INR 1.1 (0.9-1.1); Prothrombin Time 10.7 sec (9.1-11.1)
--- NOTE | 2024-09-22 10:17 | DI.CT_ITS ---
Exam(s) CT ABDOMEN PELVIS CTA EXAM: CT ABDOMEN PELVIS CTA CLINICAL HISTORY: Lower GI bleed, hx diverticular bleed. TECHNIQUE: Imaging Protocol: Axial CT angiography was performed with multi-slice acquisition and m ulti-planar and/or 3D reconstructions. CONTRAST MATERIAL: Intravenous: Omnipaque 350 Contrast volume:100 mL Oral: no COMPARISON: CT CT ABDOMEN PELVIS W from 07/05/2022 CT,NM,TMT NM MPI REST STRESS GRP from 09/20/2022 US US RENAL from 01/03/2024 FINDINGS: The exam is somewhat limited by artifact from bilateral hip prostheses. Lung bases:No acute findings. Large hiatal hernia. Liver: Normal size. Normal density. No measurable mass. Gallbladder and biliary tract: No evidence of calculi. No gallbladder wall thickening. No biliary di lation. Pancreas: Normal density, no abnormal calcifications or inflammatory process. Spleen: Normal. Kidneys: Normal size, contour and axis. No obstructive uropathy. No masses seen. No evidence of calcu li. Adrenal glands: No masses seen. Vasculature: No evidence of abdominal aortic aneurysm. Minimal atherosclerotic changes. Bladder: No gross wall thickening. No evidence of calculi. No evidence of mass. Bowel: No obstruction or. Extensive diverticulosis, greatest in the sigmoid region. No evidence of diverticulitis. No visible active GI bleed. Appendix normal. Peritoneal cavity: No ascites. No focal collection. No mesenteric inflammatory response. Bones: No acute findings. Lymph nodes: Within normal limits. Reproductive: Anterior uterine fibroid. Soft Tissues:Unremarkable. IMPRESSION: Extensive diverticulosis, greatest in the sigmoid region. No evidence of diverticulitis or visible a ctive GI bleed. RADIATION DOSE DELIVERED: 1,909.58mGy.cm Total DLP DATA REPOSITORY: All CT scans at this facility are submitted to the National Radiology Data Registry (NRDR) Dose Index Registry (DIR) with the [employer] (A[employer]). RADIATION OPTIMIZATION: All CT scans at this facility use at least one of these dose optimization te chniques: automated exposure control; mA and/or kV adjustment per patient size (includes targeted exa ms where dose is matched to clinical indication); or iterative reconstruction.
[2024-09-22 10:19] LABS: ALT 21 U/L (14-59); AST 13 U/L (15-37); Albumin 3.8 g/dL (3.4-5.0); Alkaline Phosphatase 91 U/L (46-116); Anion Gap 7.9 mmol/L (3-11); BUN 14 mg/dL (7-18); Bilirubin, Total 0.44 mg/dL (0.2-1.0); CO2 27.1 mmol/L (21.0-32.0); CREATININE 0.8 mg/dL (0.55-1.02); Calcium 8.9 mg/dL (8.5-10.1); Chloride 106 mmol/L (98-107); Estimated GFR 76.31 (mL/min/1.73m2); Glucose 102 mg/dL (74-106); Sodium 141 mmol/L (136-145); Troponin I 20 ng/L (<or=51)
== END 2024-09-22 11:04 | disposition home or self-care (01) ==
PROVIDERS: Emergency Provider Emergency Medicine; PCP Family Medicine
DX: K62.5 Hemorrhage of anus and rectum (principal); K57.30 Diverticulosis of large intestine without perforation or abscess without bleeding; I48.91 Unspecified atrial fibrillation; Z87.891 Personal history of nicotine dependence
CPT/HCPCS: 80053; 86850; 86900; 86901; 99285; 74174; 83735; 84484; 85025; 85610; 99284

== ENCOUNTER 2024-09-28 17:27 | Outpatient (REF) | payer MEDICARE, SELFPAY ==
[2024-09-28 14:06] LABS: Bilirubin Negative (Negative); Blood Trace-intact (Negative); Clarity Sl Cloudy (Clear); Glucose Negative (Negative); Ketones Negative (Negative); Leukocyte Esterase Trace (Negative); Nitrite Positive (Negative); Specific Gravity 1.025 (1.005-1.025); Urobilinogen 0.2 mg/dL (Up to 0.2); pH 5.5 (5-8)
[2024-09-28 14:17] LABS: Bacteria Many HPF (Negative); Epithelial Cells Negative HPF (Negative); Other Cells Negative (Negative); WBC >50 HPF (0-5)
[2024-09-28 14:18] LABS: C & S Indicated? Yes; Casts Negative LPF (Negative); Crystals Negative HPF (Negative); Mucus Negative (Negative)
== END 2024-09-28 17:28 | disposition home or self-care (01) ==
LOC: LBN 17:27
PROVIDERS: PCP Family Medicine; Visit Provider Family Medicine
DX: N39.0 Urinary tract infection, site not specified (principal); D64.9 Anemia, unspecified
CPT/HCPCS: 87077; 81003; 81015; 87086; 87186

== ENCOUNTER → 2024-10-06 14:49 | Outpatient (BNVA) | payer MEDICARE, SELFPAY | PROVIDERS: PCP Family Medicine; Referring Provider Family Medicine; Visit Provider Nurse Practitioner Gerontology | DX: N39.41 Urge incontinence (principal); Z87.440 Personal history of urinary (tract) infections | CPT/HCPCS: 99213 ==

== ENCOUNTER → 2024-11-12 14:48 | Outpatient (BNVA) | payer MEDICARE, SELFPAY | PROVIDERS: PCP Family Medicine; Referring Provider Family Medicine; Visit Provider Nurse Practitioner Gerontology | DX: N39.41 Urge incontinence (principal); N39.0 Urinary tract infection, site not specified | CPT/HCPCS: 81003; 99213 ==

== ENCOUNTER 2024-11-12 15:22 | Outpatient (REF) | payer MEDICARE, SELFPAY | END 2024-11-12 15:23 | disposition home or self-care (01) | LOC: LBN 15:22 | PROVIDERS: PCP Family Medicine; Visit Provider Nurse Practitioner Gerontology | DX: N39.0 Urinary tract infection, site not specified (principal); N39.41 Urge incontinence | CPT/HCPCS: 87077; 87086; 87186 ==

== ENCOUNTER 2024-12-07 17:15 | Outpatient (REF) | payer MEDICARE, SELFPAY | END 2024-12-07 17:16 | disposition home or self-care (01) | LOC: LBN 17:15 | PROVIDERS: PCP Family Medicine; Visit Provider Nurse Practitioner Gerontology | DX: N39.0 Urinary tract infection, site not specified (principal) | CPT/HCPCS: 87086 ==

== ENCOUNTER 2024-12-14 06:11 | Day surgery (SDC) | payer MEDICARE, SELFPAY ==
--- NOTE | 2024-12-13 15:38 | ANES.PREOP_ITS ---
General Info Date of Service Date Performed: 12/14/24 Height: 5 ft 5 in Weight: 92.9 kg Body Mass Index (BMI): 34.0 Surgical Procedure: Operation Date: 12/14/24 07:40 Proposed Procedure Side Surgeon p Cystoscopy/Transuretheral Botox Injection Kings Wyatt MD Meds Allergies and Home Medications Allergies Allergy/AdvReac Type Severity Reaction Status Date / Time bee venom protein (honey bee) Allergy Severe Anaphylaxsi Verified 12/14/24 06:32 s Tetracyclines Allergy Severe Anaphylaxsi Verified 12/14/24 06:32 s trazodone AdvReac Severe Psychosis Verified 12/14/24 06:32 Home Medication ?Medication ?Instructions ?Recorded ascorbic acid (vitamin C) 500 mg 500 mg PO DAILY 04/05/20 capsule acetaminophen 500 mg tablet 1,000 mg PO TID 05/02/21 (Tylenol Extra Strength) calcium 333 mg 1 tab PO DAILY 05/02/21 (carbonate)-magnesium 133 mg-zinc 5 mg (sulfate) tablet cholecalciferol (vitamin D3) 25 4,000 unit PO DAILY 05/02/21 mcg (1,000 unit) capsule clindamycin phosphate 1 % topical 1 applic topical DAILY PRN eczema 10/10/21 solution #60 mL metronidazole 1 % topical gel 1 applic topical DAILY PRN rosacea 10/10/21 (Metrogel) #180 grams mupirocin 2 % topical ointment 1 applic topical BID PRN rash #15 10/10/21 grams ferrous sulfate 100 mg PO DAILY #100 tabs 12/18/22 azelaic acid 15 % topical gel 1 applic topical DIRECTED 04/25/23 rosacea cyanocobalamin (vitamin B-12) 1,000 mcg PO DAILY 06/03/24 1,000 mcg capsule melatonin 5 mg tablet 10 mg PO HS PRN 06/03/24 thiamine HCl (vitamin B1) 100 mg 100 mg PO DAILY 06/03/24 tablet omeprazole 20 mg capsule,delayed 20 mg PO DAILY #90 caps 09/03/24 release ropinirole 0.5 mg tablet 0.5 mg PO QHS #90 tabs 09/03/24 cephalexin 250 mg capsule 250 mg PO DAILY #30 caps 10/16/24 escitalopram oxalate 20 mg tablet 20 mg PO DAILY #10 tabs 12/09/24 vit C-vit F-radejh-bxolakbf capsule cap PO 12/14/24 Current Visit Medications: Current Medications Generic Name Dose Route Start Last Admin Trade Name Treyq PRN Reason Stop Dose Admin Ciprofloxacin HCl 500 mg 12/14/24 06:00 Ciprofloxacin 500 Mg Tab PO 12/14/24 23:59 PREOP [facility] OnabotulinumtoxinA 100 units/ 0 units 12/14/24 06:00 Sodium Chloride 20 ml IJ 12/14/24 23:59 DIRECTED DELROY Ringer's Solution 1,000 mls @ 80 mls/hr 12/14/24 06:15 IV 01/13/25 06:14 INFUSION [facility] IV Miscellaneous Supplies 1 each 12/14/24 06:00 Iv Access IV 12/14/24 23:59 DIRECTED DELROY Sodium Chloride 0 ml 12/14/24 06:00 Normal Saline Flush 10 Ml Syr IV 12/14/24 23:59 PRN PRN Sodium Chloride 0 ml 12/14/24 06:00 Normal Saline 10 Ml Vial IJ 12/14/24 23:59 DIRECTED PRN Sterile Water 0 ml 12/14/24 06:00 Water,Injection,Sterile 10 Ml Vial IJ 12/14/24 23:59 DIRECTED PRN PFSH Active Problems Active Problems: Problem Status Onset Code Decreased hearing of both ears Acute H91.93 Overactive bladder Acute N32.81 Decreased hearing Acute H91.90 Memory changes Acute R41.3 Recurrent UTI Chronic 12/31/17 N39.0 Low ferritin Acute R79.0 Arthritis of right glenohumeral joint Acute M19.011 Sleep apnea Acute G47.30 Shoulder pain, right Acute M25.511 Bleeding disorder Acute D69.9 Atrial fibrillation Chronic I48.91 Urinary incontinence Acute R32 Vitamin D deficiency Acute E55.9 Hallux valgus (acquired), right foot Acute M20.11 Encounter for annual physical exam Acute Z00.00 Bladder irritability Acute N32.89 Hypercholesteremia Acute E78.00 Dupuytren's disease Resolved 07/03/13 M72.0 Hiatal hernia Chronic K44.9 Depression Chronic F32.9 Iron deficiency anemia Chronic D50.9 Anxiety Chronic F41.9 Condylomata acuminata in female Resolved 05/02/17 A63.0 Generalized osteoarthrosis Chronic M15.9 Increased body mass index Chronic R63.8 Vaginal atrophy Chronic 07/25/15 N95.2 Medical History Medical History Primary insomnia (09/12/15) Disorder of skin skin sensitivities-poison oak/giovany; poison giovany-staph inf. Gastrointestinal hemorrhage 09/30/05 Vertigo 12/06/11 Acute upper respiratory infection 12/01/[address] scan of the sinus Metatarsalgia 06/25/13 surgery 09/2013 Dupuytren's disease 07/03/13 Sepsis due to urinary tract infection 07/25/15 stone Degeneration of intervertebral disc (06/16/13) L5-S1 Depressive disorder (05/10/09) Diverticulosis of colon without diverticulitis 2000; 2006; 2011, 02/2017, 08/2022 Internal hemorrhoids Knee pain left; MRI 09/03-posterior horn meniscal tear and decrease cartilage Malignant neoplasm of female breast metastatic Marfan syndrome Polyp of colon per colonoscopy 2006; Reflux gastritis (09/14/14) Urgency incontinence (02/12/17) Vitamin D deficiency (07/16/08) Surgical History Surgical History History of eyelid surgery Bilateral H/O cystoscopy S/P tonsillectomy Ligation of fallopian tube (~1993) Total replacement of hip 2004 RIGHT;2010 LEFT Tonsillectomy Meniscectomy 2006 LEFT KNEE GLASS REMOVAL 1970 RIGHT KNEE Colonoscopy - IV Sedation (02/29/12) 2000,2006, 2011,2016, 08/2022 Tobacco Smoking/Tobacco Use Status: Former Tobacco Use Passive smoking exposure: No Second hand exposure: No Alcohol Alcohol Intake: former Substance Use Substance use: Never Substance use type: does not use and other Details: marijuana for sleep in past Vital Signs and Lab Results Vital Signs Most Recent Vital Signs in EMR: Temp Pulse Resp BP Pulse Ox 36.4 C L 96 H 16 111/82 16 L 12/14/24 06:20 12/14/24 06:20 12/14/24 06:20 12/14/24 06:20 12/14/24 06:20 Lab Results Blood Type / Crossmatch: No Data to Display Complete Blood Count: No Data to Display Complete Metabolic Panel: No Data to Display Liver Function Panel: No Data to Display Coagulation Panel: No Data to Display Cardiac Panel: No Data to Display Arterial Blood Gas: No Data to Display Venous Blood Gas: No Data to Display Pancreas Panel: No Data to Display Thyroid Panel: No Data to Display Infectious Disease: No Data to Display Blood Cultures: No Data to Display Toxicology Panel: No Data to Display Imaging and Studies Imaging and Studies Study information below may be from another EMR and interpreted by another provider. Please see original notes in EMR for more complete details. EKG Summary: 09/11/2022: Exam: Resting ECG Reason for Exam: Newly diagnosed A-fib, diagnosed [place] [facility] [place] Location: O HR:100 bpm ECG Measurements Heart Rate 100 AXIS W[place] [id number] P [id number] QRSd 85 QRS -71 QT 336 T71 QTc 434 Conclusion Atrial fibrillation...V-rate 83-103, irreg A-activity Abnormal R-wave progression, early transition...QRS area>0 in V2 Inferior infarct, old...Q >35mS, II III aVF Stress Test Summary: 09/20/22: MPI Conclusion Normal myocardial perfusion without evidence of ischemia or prior infarction Wall motion is normal. EF appears within the normal range Echocardiogram Summary: 10/24/22: Conclusion Normal left ventricular wall thickness and chamber size. Estimated ejection fraction is 55 to 60%. There are no segmental wall motion abnormalities Normal right ventricular size and systolic function Left atrium is moderately dilated. Right atrial size is normal Aortic valve is trileaflet and mildly sclerotic without stenosis or regurgitation Normal mitral valve, mild mitral regurgitation Normal tricuspid valve, mild regurgitation. Estimated right ventricular systolic pressure is 21 mmHg Borderline dilated ascending aorta Anesthesia Assessment and Plan Anesthesia History Personal History: No History of Anesthesia Complications Family History: No Family History of Anesthesia Complications Exercise Tolerance Exercise Tolerance: Metabolic Equivalents>4 Cardiac & Pulmonary Exam Cardiac Exam: Normal S1/S2 Heart Sounds Pulmonary Exam: Clear Bilateral Breath Sounds Implantable Cardiac Device Does patient have a Pacemaker or an ICD?: No Airway Exam Known Difficult Airway: No Mallampati Class: 2 Mouth Opening: Normal (> 3cm) Thyromental Distance: Greater than 3 cm Neck Range of Motion: Full ROM Neck Circumference: Normal Teeth Condition: Normal Dentition ASA Classification ASA Score: ASA 2 Emergency Case?: No NPO Status NPO Status: NPO Clears >2 hours, Solids >8 hours Anesthesia Plan Resuscitation Status: Full Code Anesthesia Technique: General Anesthesia Airway Planned: Natural Airway Monitors Used: Standard Monitors Preoperative Comments:: 78 yo female for cysto. Sig PMHx: Afib (not on anticoagulation), NOAH (denies), depression/anxiety, former smoker (1960s), ECG: afib. ECHO: LVEF 55-60%, mild MR/TR. Stress: ECG negative for ischemia, normal perfusion. Previous Anes: - cysto, prop, natural airway, no issues. - cysto, fent, Midaz, prop, natural airway, no issues.
[2024-12-14 06:20] VITALS: BP 111/82; PULSE 96; RESP 16; TEMP 36.4; O2SAT 16
--- NOTE | 2024-12-14 06:48 | HPE_ITS ---
Date of service: 12/14/24 Time of Service: 06:48 Assessment and Plan Assessment and plan (1) Overactive bladder: Status: Acute Assessment and plan: Her last Botox injection was about 7 months ago and her symptoms are recurring, so we will move ahead with a repeat injection today. She has been prophylaxed with antibiotics (oral cipro) based on her most recent positive urine culture. History of Present Illness History of Present Illness Chief Complaint: Overactive bladder Narrative: This is a 78-year-old woman who has a history of urgency incontinence due to an overactive bladder. She has failed behavioral modification and oral medications. She has had benefit from injections of Botox into the detrusor muscle. Her last injection was just over 6 months ago. She presents for repeat injection. Review of Systems Narrative: No fevers or chills Decreased hearing acuity. No vision change or dysphasia No diabetes or thyroid dysfunction Sleep apnea. No hemoptysis Hx atrial fibrillation. No chest pain Diarrhea - due to see colorectal surgery later this week. No nausea, vomiting, hepatitis, ulcers, jaundice No seizures, strokes or peripheral neuropathy Breast cancer. No bleeding disorders No gout PFSH All Active Problems Decreased hearing of both ears (Acute) Overactive bladder (Acute) Decreased hearing (Acute) Memory changes (Acute) Recurrent UTI (Chronic 12/31/17) Low ferritin (Acute) Arthritis of right glenohumeral joint (Acute) Sleep apnea (Acute) Shoulder pain, right (Acute) Bleeding disorder (Acute) Atrial fibrillation (Chronic) Urinary incontinence (Acute) Vitamin D deficiency (Acute) Hallux valgus (acquired), right foot (Acute) Encounter for annual physical exam (Acute) Bladder irritability (Acute) Hypercholesteremia (Acute) Hiatal hernia (Chronic) Depression (Chronic) Iron deficiency anemia (Chronic) thought to be secondary to large hiatal hernia; requires lifelong iron and PPI Anxiety (Chronic) 12/31/17 OPAL-7 SCORE=12 Generalized osteoarthrosis (Chronic) right hip-extensive and severe DJD w/ acetabular FX-right hip replacement DJD L5-S1 Increased body mass index (Chronic) Vaginal atrophy (Chronic 07/25/15) Medical History Primary insomnia (09/12/15) Disorder of skin skin sensitivities-poison oak/giovany; poison giovany-staph inf. Gastrointestinal hemorrhage 09/30/05 Vertigo 12/06/11 Acute upper respiratory infection 12/01/[address] scan of the sinus Metatarsalgia 06/25/13 surgery 09/2013 Dupuytren's disease 07/03/13 Sepsis due to urinary tract infection 07/25/15 stone Degeneration of intervertebral disc (06/16/13) L5-S1 Depressive disorder (05/10/09) Diverticulosis of colon without diverticulitis 2000; 2006; 2011, 02/2017, 08/2022 Internal hemorrhoids Knee pain left; MRI 09/03-posterior horn meniscal tear and decrease cartilage Malignant neoplasm of female breast metastatic Marfan syndrome Polyp of colon per colonoscopy 2006; Reflux gastritis (09/14/14) Urgency incontinence (02/12/17) Vitamin D deficiency (07/16/08) Surgical History History of eyelid surgery Bilateral H/O cystoscopy S/P tonsillectomy Ligation of fallopian tube (~1993) Total replacement of hip 2004 RIGHT;2010 LEFT Tonsillectomy Meniscectomy 2005 LEFT KNEE GLASS REMOVAL 1970 RIGHT KNEE Colonoscopy - IV Sedation (02/29/12) 2000,2006, 2011,2016, 08/2022 Family History Mother , LEUKEMIA at age 87. CLL (chronic lymphocytic leukemia) Arthritis Father , UNKNOWN at age 93. Dementia Hyperlipidemia Brother Diabetes TYPE 2 Kidney disease Maternal Grandfather No problems noted. Paternal Grandfather Prostate cancer Maternal Grandmother Heart disease Son Asthma Social History (Updated 12/18/22 @ 19:52 by Mariluz Watts MD, [place]) Smoking/Tobacco Use Status: Former Tobacco Use tobacco type: cigarettes Quit Date: 09/30/1968 Tobacco: How many years used: 3 Second Hand Exposure: No Smoking risk assessment performed?: Yes Alcohol Intake: former Drug use: Never Substance use type: does not use and other Details: marijuana for sleep in past Household members: family and children Housing: house Communication Needs: None Do you need help understanding health information?: Always Pets and animals: Yes Pets and animals: dog(s) and other Sexually active: No Do you think of yourself as: Asexual Current gender identity: female What is your relationship status?: How often do you talk on the phone with friends or family?: three or more times per week How often do you get together with friends or relatives?: three or more times per week Do you belong to any clubs or organized social groups?: yes Panel score (0-1 are the most socially isolated patients): 2 What type of physical activity do you participate in: walking, aerobic and bicycling Duration: 30-45 minutes/day Frequency: 5-6 times per week Eilza/Synagogue: No preference Special eliza needs: No Seatbelt use: always Helmet use: Yes Helmet use: always Drive intox or ride w/intox 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 Do you feel safe at home: Yes Do you feel safe in your relationship?: Yes Meds Allergies and Home Medications Allergies Allergy/AdvReac Type Severity Reaction Status Date / Time bee venom protein (honey bee) Allergy Severe Anaphylaxsi Verified 12/14/24 06:32 s Tetracyclines Allergy Severe Anaphylaxsi Verified 12/14/24 06:32 s trazodone AdvReac Severe Psychosis Verified 12/14/24 06:32 Home Medications ?Medication ?Instructions ?Recorded ?Confirmed ?Type ascorbic acid (vitamin C) 500 mg 500 mg PO DAILY 04/05/20 12/14/24 History capsule acetaminophen 500 mg tablet 1,000 mg PO TID 05/02/21 12/14/24 History (Tylenol Extra Strength) calcium 333 mg 1 tab PO DAILY 05/02/21 12/14/24 History (carbonate)-magnesium 133 mg-zinc 5 mg (sulfate) tablet cholecalciferol (vitamin D3) 25 4,000 unit PO DAILY 05/02/21 12/14/24 History mcg (1,000 unit) capsule clindamycin phosphate 1 % topical 1 applic topical DAILY PRN eczema 10/10/21 12/14/24 Rx solution #60 mL metronidazole 1 % topical gel 1 applic topical DAILY PRN rosacea 10/10/21 12/14/24 Rx (Metrogel) #180 grams mupirocin 2 % topical ointment 1 applic topical BID PRN rash #15 10/10/21 Rx grams ferrous sulfate 100 mg PO DAILY #100 tabs 12/18/22 12/14/24 Rx azelaic acid 15 % topical gel 1 applic topical DIRECTED 04/25/23 12/14/24 History rosacea cyanocobalamin (vitamin B-12) 1,000 mcg PO DAILY 06/03/24 12/14/24 History 1,000 mcg capsule melatonin 5 mg tablet 10 mg PO HS PRN 06/03/24 12/14/24 History thiamine HCl (vitamin B1) 100 mg 100 mg PO DAILY 06/03/24 12/14/24 History tablet omeprazole 20 mg capsule,delayed 20 mg PO DAILY #90 caps 09/03/24 12/14/24 Rx release ropinirole 0.5 mg tablet 0.5 mg PO QHS #90 tabs 09/03/24 12/14/24 Rx cephalexin 250 mg capsule 250 mg PO DAILY #30 caps 10/16/24 12/14/24 Rx escitalopram oxalate 20 mg tablet 20 mg PO DAILY #10 tabs 12/09/24 12/14/24 Rx vit C-vit T-zjipes-vzarmetl capsule cap PO 12/14/24 History Exam Const General: cooperative Neck Neck: supple Resp Effort & Inspection: normal respiratory effort Auscultation: clear to auscultation bilaterally Cardio Rate: regular rate Rhythm: regular rhythm GI Palpation: soft and no masses Neuro General: patient alert, patient awake and patient oriented x3 Time Spent Time spent with Patient: <40 minutes Time was spent: other
[2024-12-14 06:58] VITALS: BMI 34.0
[2024-12-14] MEDS: Ciprofloxacin 500 MG TAB PO (06:58)
[2024-12-14] MEDS: Lactated Ringers 1,000 ML 80 ML IV (07:05)
[2024-12-14] MEDS: Lidocaine 2% Jelly 6 ML SYR (07:53)
[2024-12-14] MEDS: BOTULINUM TOXIN TYPE A 100 UNITS, Normal Saline 20 ML IJ (07:54)
--- NOTE | 2024-12-14 08:01 | PDOC.DSDIS_ITS ---
Date of service: 12/14/24 Discharge Plan Disposition Patient Disposition: Home Condition: Stable Discharge Details Reason For Visit: cystoscopy and botox injection Attending Provider: Kings Wyatt Primary Care Provider: Mariluz Watts Home Meds and New Rx's Prescriptions: No Action ascorbic acid (vitamin C) 500 mg capsule 500 mg PO DAILY calcium carb-mag ox-zinc sulf 333-133-5 mg tablet 1 tab PO DAILY Rx Instructions: administer with a meal azelaic acid 15 % gel 1 applic topical DIRECTED melatonin 5 mg tablet 10 mg PO HS PRN thiamine HCl (vitamin B1) 100 mg tablet 100 mg PO DAILY cyanocobalamin (vitamin B-12) 1,000 mcg capsule 1,000 mcg PO DAILY acetaminophen [Tylenol Extra Strength] 500 mg tablet 1,000 mg PO TID cholecalciferol (vitamin D3) 25 mcg (1,000 unit) capsule 4,000 unit PO DAILY ferrous sulfate 100 mg tablet 100 mg PO DAILY Qty: 100 0RF clindamycin phosphate 1 % solution 1 applic topical DAILY PRN (Reason: eczema) Qty: 60 4RF Patient Comments: roscacea metronidazole [Metrogel] 1 % gel 1 applic Topical DAILY PRN (Reason: rosacea) Qty: 180 5RF [place] [facility] [place] [facility] [place]upirocin 2 % ointment 1 applic TP BID PRN (Reason: rash) Qty: 15 2RF ropinirole 0.5 mg tablet 0.5 mg PO QHS Qty: 90 3RF omeprazole 20 mg capsule,delayed release(DR/EC) 20 mg PO DAILY Qty: 90 4RF cephalexin 250 mg capsule 250 mg PO DAILY Qty: 30 0RF escitalopram oxalate 20 mg tablet 20 mg PO DAILY Qty: 10 4RF vit C-vit A-wnmlkr-dagecmti Capsule PO Discharge Instructions Additional Instructions: Please call office in about 1 week to give us a progress report Followup appt 6 months Activity:: Activity as Tolerated Shower/Bathe:: 24 hours Diet:: As Tolerated Discharge Orders Discharge Orders: Discharge Order (Routine); Ordered 12/14/24 Ordered By: Kings Wyatt DS: Diagnosis Discharge Diagnosis (1) Overactive bladder: Status: Acute
--- NOTE | 2024-12-14 08:02 | W.PM.OP ---
Operative Note Operative Note PRE-OP DIAGNOSIS: Overactive bladder POST-OP DIAGNOSIS: same PROCEDURE: cystoscopy with transurethral injection of Botox into detrusor muscle SURGEON: Kings Wyatt ANESTHESIA TYPE: Local By Surgeon and General:No Airway Refer to Anesthesia Record ESTIMATED BLOOD LOSS: 5 PATHOLOGY: none sent COMPLICATIONS: None Patient was transported to: same day Patient's condition: stable Implants: 100 units Botox Indications: This is a 78-year-old woman who has a history of urinary incontinence due to an overactive bladder. She has failed behavioral modification, pelvic floor physical therapy and oral medications. She has had benefit from Botox injections. Her last injection was about 7 months ago. She presents for repeat injection Findings: Normal bladder Procedure Description: The patient was given a dose of oral antibiotics and brought to the operating room on 12/14/2024. She did have a preprocedural urine culture that was reassuring for the absence of infection After successful induction of general anesthesia, she was placed in the dorsal lithotomy position. Her genitalia was prepped with Betadine. 2% Xylocaine jelly was instilled into the urethra to act as a local anesthetic. A 20 [place] urethrotome sheath was passed through the urethra into the bladder. The bladder was inspected with the 30 degree lens. Both ureteral orifices appeared normal. No blood was seen coming from either side. The remainder the bladder was smooth-walled with no papillary or nodular lesions. Using a transurethral injection system, a total of 100 units of Botox was injected into the detrusor muscle. We diluted the Botox with 20 mL of dilute and injected 1 mL in 20 different locations. We used a grid pattern with 4 horizontal rolls and 5 vertical rows. Each of the injections was on the posterior bladder wall and we avoided the trigone and bladder neck region. The bladder was emptied and the scope was removed. The patient tolerated the procedure well with no complications. Date of Procedure: 12/14/24
[2024-12-14 08:05] VITALS: BP 85/74; PULSE 88; RESP 16; TEMP 36; O2SAT 95
[2024-12-14] MEDS: Phenazopyridine 200 MG TAB PO (08:11)
--- NOTE | 2024-12-14 08:16 | W.ANESPOSTOP ---
Postoperative Evaluation Date, Time and Location Date Performed: 12/14/24 Time Performed: 08:16 Patient Location: Day Surgery Unit Vital Signs Most Recent Imported Vital Signs: Most Recent Vital Signs Temp Pulse Resp BP Pulse Ox 36 C L 88 16 85/74 L 95 12/14/24 08:05 12/14/24 08:05 12/14/24 08:05 12/14/24 08:05 12/14/24 08:05 Pain Score Most Recent Pain Score: Most Recent Pain Score Pain Level 3 12/14/24 08:05 Assessment Mental Status: Awake (Alert & Oriented to Patient Baseline) Airway and Respiratory Function: Patent airway with normal (patient baseline) respiratory exam Cardiovascular Function: Hemodynamically Stable Hydration Status: Adequately Hydrated Nausea & Vomiting: No Nausea or Vomiting Pain: Pt. Denies Any Pain Peripheral Nerve Block: Patient did not receive a nerve block
[2024-12-14 08:40] VITALS: BP 124/96; PULSE 82; RESP 16; TEMP 36.4; O2SAT 100
== END 2024-12-14 08:55 | disposition home or self-care (01) ==
PROVIDERS: PCP Family Medicine; Visit Provider Urology
PROC: (CPT 52287; principal; 2024-12-14 07:30)
DX: N32.81 Overactive bladder (principal); N39.41 Urge incontinence; I48.91 Unspecified atrial fibrillation; D50.9 Iron deficiency anemia, unspecified
CPT/HCPCS: 52287; J0585; J2405; J2704

== ENCOUNTER 2024-12-18 00:22 | Outpatient (CLI) | payer MEDICARE, SELFPAY ==
[2024-12-18 15:01] LABS: Abs Immature Grans 0.02 10^3/uL (0.0-0.06); Absolute Basophil Count 0.06 10^3/uL (0.0-0.2); Absolute Eosinophil Count 0.11 10^3/uL (0.0-0.7); Absolute Lymphocyte Count 2.15 10^3/uL (1.2-3.4); Absolute Monocyte Count 0.64 10^3/uL (0.1-0.8); Absolute Neutrophil Count 4.83 10^3/uL (1.2-6.7); Basophils % 0.8 %; Eosinophils % 1.4 %; HCT 43.6 % (36.0-46.0); HGB 14.1 g/dL (11.2-15.7); Immature Grans % 0.3 %; Lymphocytes % 27.5 %; MCH 29.1 pg (27.0-33.0); MCHC 32.3 % (32.0-36.0); MCV 90 fL (80-95); Monocytes % 8.2 %; Neutrophils % 61.8 %; Platelet Count 222 10^3/uL (130-400); RBC 4.85 10^6/uL (3.93-5.22); RDW 12.3 % (11.7-14.6); RDW-SD 40.7 fL; WBC 7.81 10^3/uL (4.4-10.8)
[2024-12-18 15:12] LABS: Bilirubin Negative (Negative); Blood Negative (Negative); Clarity Clear (Clear); Glucose Negative (Negative); Ketones Negative (Negative); Leukocyte Esterase Negative (Negative); Nitrite Negative (Negative); Specific Gravity >= 1.030 (1.005-1.025); Urobilinogen 0.2 mg/dL (Up to 0.2); pH 5.5 (5-8)
[2024-12-18 16:36] LABS: Ferritin 94 ng/mL (8-252)
== END 2024-12-18 00:23 | disposition home or self-care (01) ==
PROVIDERS: PCP Family Medicine; Visit Provider Family Medicine
DX: D51.8 Other vitamin B12 deficiency anemias (principal); N39.0 Urinary tract infection, site not specified
CPT/HCPCS: 36415; 81003; 82728; 85025

== ENCOUNTER 2025-02-09 15:59 | Outpatient (REF) | payer MEDICARE, SELFPAY ==
[2025-02-09 18:33] LABS: Bilirubin Negative (Negative); Blood Trace-lysed (Negative); Clarity Clear (Clear); Glucose Negative (Negative); Ketones Negative (Negative); Leukocyte Esterase Trace (Negative); Nitrite Positive (Negative); Urobilinogen 0.2 mg/dL (Up to 0.2); pH 5.5 (5-8)
[2025-02-09 18:55] LABS: Bacteria Packed HPF (Negative); C & S Indicated? Yes; Casts Negative LPF (Negative); Crystals Few Amorphous HPF (Negative); Epithelial Cells Rare HPF (Negative); Mucus Negative (Negative); WBC 20-50 HPF (0-5)
== END 2025-02-09 16:00 | disposition home or self-care (01) ==
LOC: LBN 15:59
PROVIDERS: PCP Family Medicine; Visit Provider Family Medicine
DX: D64.9 Anemia, unspecified (principal); N39.0 Urinary tract infection, site not specified
CPT/HCPCS: 87077; 81003; 81015; 87086; 87186

== ENCOUNTER 2025-03-05 00:37 | Outpatient (CLI) | payer MEDICARE, SELFPAY ==
--- NOTE | 2025-03-05 11:08 | DI.RAD_ITS ---
Exam(s) XR KNEE LT 3V AP,LAT,MIGUELITO EXAM: XR KNEE LT 3V AP,LAT,MIGUELITO CLINICAL HISTORY: fall on knee,[id number]. TECHNIQUE: 2D digital imaging was performed of the left knee. Four images were obtained. AP, later al and PA tunnel views were obtained. COMPARISON: No exams were available for comparison FINDINGS: BONES: No acute fracture is present. No bony destructive lesion is seen. JOINTS: Marked degenerative changes are seen in the knee characterized by joint space narrowing and o steophytes. The findings are most marked in the medial femoral tibial and patellofemoral joint. No joint effusion is seen. No loose body. SOFT TISSUE: Normal. IMPRESSION: 1. No acute fracture or dislocation. 2. Marked osteoarthritis of the knee. DATA REPOSITORY: RADIATION DOSE DELIVERED:
== END 2025-03-05 00:57 ==
LOC: DI 00:37
PROVIDERS: PCP Family Medicine; Visit Provider Family Medicine
DX: W19.XXXA Unspecified fall, initial encounter (principal); M25.562 Pain in left knee
CPT/HCPCS: 73562

== ENCOUNTER 2025-03-12 14:54 | Outpatient (REF) | payer MEDICARE, SELFPAY ==
[2025-03-12 14:06] LABS: Bilirubin Negative (Negative); Blood Negative (Negative); Clarity Clear (Clear); Glucose Negative (Negative); Ketones Negative (Negative); Leukocyte Esterase Negative (Negative); Nitrite Positive (Negative); Urobilinogen 0.2 mg/dL (Up to 0.2); pH 5.5 (5-8)
[2025-03-12 14:26] LABS: Bacteria Many HPF (Negative); C & S Indicated? No; Casts Negative LPF (Negative); Crystals Negative HPF (Negative); Epithelial Cells Rare HPF (Negative); Mucus Negative (Negative); RBC Negative HPF (0-2); WBC 0-2 HPF (0-5)
== END 2025-03-12 14:55 | disposition home or self-care (01) ==
LOC: LBN 14:54
PROVIDERS: PCP Family Medicine; Visit Provider Family Medicine
DX: D64.9 Anemia, unspecified (principal); N39.0 Urinary tract infection, site not specified
CPT/HCPCS: 81003; 81015

== ENCOUNTER → 2025-03-25 08:46 | Outpatient (BNVA) | payer MEDICARE, SELFPAY | PROVIDERS: PCP Family Medicine; Referring Provider Family Medicine; Visit Provider Physician Assistant | DX: M17.12 Unilateral primary osteoarthritis, left knee (principal) | CPT/HCPCS: 20610; J1010 ==

== ENCOUNTER 2025-03-25 09:38 | Outpatient (REF) | payer MEDICARE, SELFPAY ==
[2025-03-25 13:23] LABS: Bilirubin Negative (Negative); Blood Negative (Negative); Clarity Clear (Clear); Glucose Negative (Negative); Ketones Negative (Negative); Leukocyte Esterase Negative (Negative); Nitrite Positive (Negative); Specific Gravity 1.025 (1.005-1.025); Urobilinogen 0.2 mg/dL (Up to 0.2); pH 5.5 (5-8)
[2025-03-25 13:31] LABS: Bacteria Many HPF (Negative); C & S Indicated? No; Casts Negative LPF (Negative); Crystals Negative HPF (Negative); Epithelial Cells Few HPF (Negative); Mucus Negative (Negative); RBC 0-2 HPF (0-2)
== END 2025-03-25 09:39 | disposition home or self-care (01) ==
LOC: LBN 09:38
PROVIDERS: PCP Family Medicine; Visit Provider Family Medicine
DX: D64.9 Anemia, unspecified (principal); N39.0 Urinary tract infection, site not specified; B96.1 Klebsiella pneumoniae [K. pneumoniae] as the cause of diseases classified elsewhere; R82.89 Other abnormal findings on cytological and histological examination of urine
CPT/HCPCS: 81003; 81015

== ENCOUNTER 2025-05-17 15:52 | Outpatient (REF) | payer MEDICARE, SELFPAY ==
[2025-05-17 14:57] LABS: Glucose Negative (Negative)
[2025-05-17 15:01] LABS: RBC Negative HPF (0-2); WBC 0-2 HPF (0-5)
[2025-05-17 15:02] LABS: C & S Indicated? No
== END 2025-05-17 15:53 | disposition home or self-care (01) ==
LOC: LBN 15:52
PROVIDERS: PCP Family Medicine; Visit Provider Family Medicine
DX: D64.9 Anemia, unspecified (principal); N39.0 Urinary tract infection, site not specified
CPT/HCPCS: 81003; 81015

== ENCOUNTER → 2025-06-10 14:56 | Outpatient (BNVA) | payer MEDICARE, SELFPAY | PROVIDERS: PCP Family Medicine; Referring Provider Family Medicine; Visit Provider Nurse Practitioner Gerontology | DX: N39.0 Urinary tract infection, site not specified (principal); N39.41 Urge incontinence | CPT/HCPCS: 99213; 81002 ==

== ENCOUNTER 2025-06-10 15:31 | Outpatient (REF) | payer MEDICARE, SELFPAY | END 2025-06-10 15:32 | disposition home or self-care (01) | LOC: LBN 15:31 | PROVIDERS: PCP Family Medicine; Visit Provider Nurse Practitioner Gerontology | DX: N39.0 Urinary tract infection, site not specified (principal) | CPT/HCPCS: 87086 ==

== ENCOUNTER 2025-06-14 19:35 | Outpatient (REF) | payer MEDICARE, SELFPAY ==
[2025-06-14 16:30] LABS: Glucose Negative (Negative)
[2025-06-14 16:54] LABS: RBC 0-2 HPF (0-2)
== END 2025-06-14 19:36 | disposition home or self-care (01) ==
LOC: LBN 19:35
PROVIDERS: PCP Family Medicine; Visit Provider Nurse Practitioner Gerontology
DX: N39.0 Urinary tract infection, site not specified (principal)
CPT/HCPCS: 87077; 81003; 81015; 87086; 87186

== ENCOUNTER → 2025-06-29 08:58 | Outpatient (BNVA) | payer MEDICARE, SELFPAY | PROVIDERS: PCP Family Medicine; Referring Provider Family Medicine; Visit Provider Student in an Organized Health Care Education/Training Program | DX: M17.12 Unilateral primary osteoarthritis, left knee (principal) | CPT/HCPCS: 20610; J1010 ==

== ENCOUNTER 2025-07-06 01:38 | Outpatient (CLI) | payer MEDICARE, SELFPAY ==
[2025-07-06 10:39] LABS: HCT 44.9 % (36.0-46.0); HGB 14.4 g/dL (11.2-15.7); MCH 28.1 pg (27.0-33.0); MCHC 32.1 % (32.0-36.0); MCV 88 fL (80-95); MPV 11.0 fL (8.0-11.0); Platelet Count 264 10^3/uL (130-400); RBC 5.12 10^6/uL (3.93-5.22); RDW 13.5 % (11.7-14.6); RDW-SD 43.7 fL; WBC 9.17 10^3/uL (4.4-10.8)
[2025-07-06 10:39] LABS: Glucose Negative (Negative)
[2025-07-06 10:40] LABS: C & S Indicated? Yes; RBC Negative HPF (0-2)
[2025-07-06 12:08] LABS: ALT 41 U/L (14-59); AST 12 U/L (15-37); Albumin 3.8 g/dL (3.4-5.0); Alkaline Phosphatase 102 U/L (46-116); Anion Gap 12.2 mmol/L (3-11); BUN 12 mg/dL (7-18); Bilirubin, Total 0.4 mg/dL (0.2-1.0); CO2 24.8 mmol/L (21.0-32.0); Calcium 9.2 mg/dL (8.5-10.1); Calculated LDL 53 mg/dL (<100); Chloride 102 mmol/L (98-107); Cholesterol 132 mg/dL (<200); Estimated GFR 89.02 (mL/min/1.73m2); Ferritin 195 ng/mL (8-252); Glucose 114 mg/dL (74-106); HDL Cholesterol 50 mg/dL (>or=50); Potassium 4.3 mmol/L (3.5-5.1); Sodium 139 mmol/L (136-145); Total Protein 7.4 g/dL (6.4-8.2); Triglyceride 148 mg/dL (<150); Vitamin B12 1076 pg/mL (193-986)
== END 2025-07-06 01:39 | disposition home or self-care (01) ==
LOC: LBO 01:38
PROVIDERS: PCP Family Medicine; Visit Provider Family Medicine
DX: E53.8 Deficiency of other specified B group vitamins (principal); I10 Essential (primary) hypertension; E78.00 Pure hypercholesterolemia, unspecified; D64.9 Anemia, unspecified
CPT/HCPCS: 36415; 80053; 80061; 85027; 87077; 81003; 81015; 82607; 82728; 87086; 87186

== ENCOUNTER 2025-07-11 14:10 | Emergency (ER) | payer MEDICARE, SELFPAY ==
[2025-07-11] VITALS (20 sets, daily range): BP systolic 110–127; BP diastolic 63–78; PULSE 76–101; RESP 16–25; TEMP 37.1; O2SAT 92–95
--- NOTE | 2025-07-11 14:00 | RT.EKG_ITS ---
APPROVED REPORT Exam: Resting ECG Reason for Exam: chest pain Patient Location: E HR:106 bpm ECG Measurements Heart Rate 106 AXIS [place] [id number] P [id number] QRSd 77 QRS -56 QT 329 T 3 QTc 437 Conclusion Atrial fibrillation...V-rate 81-138, irreg A-activity Inferior infarct, old...Q >35mS, II III aVF
--- NOTE | 2025-07-11 14:30 | DI.RAD_ITS ---
Exam(s) XR CHEST 2V PA LATERAL EXAM: XR CHEST 2V PA LATERAL CLINICAL HISTORY: Chest pain TECHNIQUE: 2D digital imaging was performed of the chest. Two images were obtained. PA and lateral views were obtained. COMPARISON: CR CHEST 2 VIEWS PA,LAT from 12/02/2012 CR XR RIBS BI INCLUDE CHEST from 03/11/[address] ABDOMEN PELVIS CTA from 09/22/2024 FINDINGS: MEDIASTINUM: There is a large hiatal hernia again noted. HEART: Normal. PULMONARY VASCULATURE: Normal. LUNGS: Clear. PLEURAL SPACE: No pleural effusion or pneumothorax. BONE:Within normal limits for the patient's age. OTHER FINDINGS:Normal. IMPRESSION: No acute pulmonary findings. DATA REPOSITORY: RADIATION DOSE DELIVERED:
--- NOTE | 2025-07-11 14:43 | W.ED.GENAD ---
Discharge Plan Disposition Patient Disposition: Home Condition: Stable Discharge Details Clinical Impression: Chest pain, atypical, Chest pain, pleuritic Primary Care Provider: Mariluz Watts ED Provider: Alvarado Barrera Meds and New Rx's Prescriptions: Continued ascorbic acid (vitamin C) 500 mg capsule 500 mg PO DAILY calcium carb-mag ox-zinc sulf 333-133-5 mg tablet 1 tab PO DAILY Rx Instructions: administer with a meal azelaic acid 15 % gel 1 applic topical DIRECTED melatonin 5 mg tablet 10 mg PO HS PRN thiamine HCl (vitamin B1) 100 mg tablet 100 mg PO DAILY cyanocobalamin (vitamin B-12) 1,000 mcg capsule 1,000 mcg PO DAILY acetaminophen [Tylenol Extra Strength] 500 mg tablet 1,000 mg PO TID cholecalciferol (vitamin D3) 25 mcg (1,000 unit) capsule 4,000 unit PO DAILY ferrous sulfate 100 mg tablet 100 mg PO DAILY Qty: 100 0RF clindamycin phosphate 1 % solution 1 applic topical DAILY PRN (Reason: eczema) Qty: 60 4RF Patient Comments: roscacea metronidazole [Metrogel] 1 % gel 1 applic Topical DAILY PRN (Reason: rosacea) Qty: 180 5RF Rx Instructions: [facility] mupirocin 2 % ointment 1 applic TP BID PRN (Reason: rash) Qty: 15 2RF omeprazole 20 mg capsule,delayed release(DR/EC) 20 mg PO DAILY Qty: 90 4RF cephalexin 250 mg capsule 250 mg PO DAILY Qty: 30 0RF escitalopram oxalate 20 mg tablet 20 mg PO DAILY Qty: 10 4RF ropinirole 0.5 mg tablet 1 mg PO QHS Qty: 180 3RF tirzepatide (weight loss) 5 mg/0.5 mL pen injector 5 mg subcut QWEEK Qty: 8 4RF Rx Instructions: for 4 weeks fosfomycin tromethamine 3 gram packet 1 packet PO ONCE Qty: 1 0RF Rx Instructions: Mix with 3 to 4 oz (90 to 120 mL) cool water before ingesting vit C-vit C-wrkhmg-mdyinoas Capsule 1 cap PO DAILY Discharge Instructions Instructions: Pleuritic Chest Pain (DC) Discharge Data Discharge Physician: Alvarado Barrera HPI General Date/Time Provider Initiated Documentation: 07/11/25 14:16. HPI Narrative: Patient presents emergency department complaining of parasternal chest pain that is worse when she coughs patient has a hiatal hernia and has a history of A-fib that is not being treated for she has a natural anticoagulant due to a connective tissue disease. Denies any shortness of breath she is very active Related Data Home Medications ?Medication ?Instructions ?Recorded ?Confirmed ascorbic acid (vitamin C) 500 mg 500 mg PO DAILY 04/05/20 07/11/25 capsule acetaminophen 500 mg tablet 1,000 mg PO TID 05/02/21 07/11/25 (Tylenol Extra Strength) calcium 333 mg 1 tab PO DAILY 05/02/21 07/11/25 (carbonate)-magnesium 133 mg-zinc 5 mg (sulfate) tablet cholecalciferol (vitamin D3) 25 4,000 unit PO DAILY 05/02/21 07/11/25 mcg (1,000 unit) capsule clindamycin phosphate 1 % topical 1 applic topical DAILY PRN eczema 10/10/21 07/11/25 solution #60 mL metronidazole 1 % topical gel 1 applic topical DAILY PRN rosacea 10/10/21 07/11/25 (Metrogel) #180 grams mupirocin 2 % topical ointment 1 applic topical BID PRN rash #15 10/10/21 07/11/25 grams ferrous sulfate 100 mg PO DAILY #100 tabs 12/18/22 07/11/25 azelaic acid 15 % topical gel 1 applic topical DIRECTED 04/25/23 07/11/25 rosacea cyanocobalamin (vitamin B-12) 1,000 mcg PO DAILY 06/03/24 07/11/25 1,000 mcg capsule melatonin 5 mg tablet 10 mg PO HS PRN 06/03/24 07/11/25 thiamine HCl (vitamin B1) 100 mg 100 mg PO DAILY 06/03/24 07/11/25 tablet omeprazole 20 mg capsule,delayed 20 mg PO DAILY #90 caps 09/03/24 07/11/25 release cephalexin 250 mg capsule 250 mg PO DAILY #30 caps 10/16/24 07/11/25 escitalopram oxalate 20 mg tablet 20 mg PO DAILY #10 tabs 12/09/24 07/11/25 vit C-vit R-iavunw-kofigfot capsule 1 cap PO DAILY 12/14/24 07/11/25 ropinirole 0.5 mg tablet 1 mg (2 x 0.5 mg) PO QHS #180 tabs 01/07/25 07/11/25 tirzepatide (weight loss) 5 mg/0.5 5 mg (0.5 mL) subcut QWEEK #8 mL 04/14/25 07/11/25 mL subcutaneous pen injector fosfomycin tromethamine 3 gram 1 packet PO ONCE #1 ea 06/17/25 07/11/25 oral packet Previous Rx's ?Medication ?Instructions ?Recorded clindamycin phosphate 1 % topical 1 applic topical DAILY PRN eczema 10/10/21 solution #60 mL metronidazole 1 % topical gel 1 applic topical DAILY PRN rosacea 10/10/21 (Metrogel) #180 grams mupirocin 2 % topical ointment 1 applic topical BID PRN rash #15 10/10/21 grams ferrous sulfate 100 mg PO DAILY #100 tabs 12/18/22 omeprazole 20 mg capsule,delayed 20 mg PO DAILY #90 caps 09/03/24 release cephalexin 250 mg capsule 250 mg PO DAILY #30 caps 10/16/24 escitalopram oxalate 20 mg tablet 20 mg PO DAILY #10 tabs 12/09/24 ropinirole 0.5 mg tablet 1 mg (2 x 0.5 mg) PO QHS #180 tabs 01/07/25 tirzepatide (weight loss) 5 mg/0.5 5 mg (0.5 mL) subcut QWEEK #8 mL 04/14/25 mL subcutaneous pen injector fosfomycin tromethamine 3 gram 1 packet PO ONCE #1 ea 06/17/25 oral packet Allergies Allergy/AdvReac Type Severity Reaction Status Date / Time bee venom protein (honey bee) Allergy Severe Anaphylaxsi Verified 07/11/25 14:15 s Tetracyclines Allergy Severe Anaphylaxsi Verified 07/11/25 14:15 s trazodone AdvReac Severe Psychosis Verified 07/11/25 14:15 General Stated Complaint: Chest Pain CHELLY: 3 Review of Systems Narrative: Review of Systems: Constitutional: No fevers, chills, sweats Eye: No recent visual problems ENT: No ear pain, nasal congestion, sore throat Respiratory: No shortness of breath, cough Cardiovascular: , palpitations, syncope Gastrointestinal: No nausea, vomiting, diarrhea Genitourinary: No hematuria Mendez/Lymph: Negative for bruising tendency, swollen lymph glands Endocrine: Negative for excessive thirst, excessive hunger Musculoskeletal: No back pain, neck pain, joint pain, muscle pain, decreased range of motion Integumentary: No rash, pruritus, abrasions Neurologic: Alert & oriented X 4 Psychiatric: No anxiety, depression Exam Narrative Exam Narrative: Exam; vitals signs as reported above normal Constitutional; In no acute distress, afebrile General: cooperative, healthy appearing, comfortable and no acute distress HEENT: Head: normal to inspection, no palpable skull fracture and normocephalic atraumatic Eyes: : appearance normal, both eyes and all related structures EOM intact bilaterally Pupils: PERRL : conjunctiva normal Direct ophthalmoscopy: normal light reflex, normal conjunctiva, normal visual acuity Ears: Normal TM, normal external canal Nose: normal no rhinorreha Neck no JVD, supple non tender Neck: normal visual inspection, full ROM and no lymphadenopathy Chest: normal inspection of the chest Respiratory : normal respiratory effort and able to speak in complete sentences no wheezing no rales Cardio Rate: regular rate, rhythm: regular rhythm normal heart sounds S1 and S2 no murmurs, gallops, or rubs GI : normal to inspection, normal bowel sounds, soft, non tender, non distended, no organomegaly Back/Spine/ no CVA tenderness Thoracic/Lumbar Spine: no tenderness or deformities Skin no rashes or lesions Neuro: patient alert oriented x 4 and no meningeal signs, Cranial Nerves: CN's II-XI intact bilaterally, Cognition: normal cognition, Speech: speech normal, Gait: normal gait, Depp tendon reflexes normal 2+ muscle strength 5/5 bilaterally Extremities, no edema, full range of motion, normal strength Course Vital Signs Vital signs: Vital Signs Temperature 37.1 C 07/11/25 14:10 Pulse 98 H 07/11/25 14:10 Respiratory Rate 18 07/11/25 14:10 Blood Pressure 111/72 07/11/25 14:10 Pulse Oximetry 94 07/11/25 14:10 Temperature 37.1 C 07/11/25 14:10 Pulse 98 H 07/11/25 14:10 Respiratory Rate 18 07/11/25 14:36 Respiratory Effort Normal, Non-Labored 07/11/25 14:36 Respiratory Depth Normal 07/11/25 14:36 Respiratory Pattern Normal 07/11/25 14:36 Blood Pressure 111/72 07/11/25 14:10 Pulse Oximetry 94 07/11/25 14:10 Pain Level 6 07/11/25 14:10 Medical Decision Making MDM: Summary: Patient presents emergency department stating that she has been coughing with some chest pain in the left parasternal area EKG shows A-fib which she has had in the past at a rate of [address]-T changes. Chest x-ray shows a hiatal hernia which she has told me she has had. Chest x-ray does not show any infiltrates labs including two troponin are unremarkable. Heart score is 2 Data Review Analysis All the data on this patient was reviewed by me including laboratory and imaging studies as well as bedside studies performed by me Independent review of Studies Imaging as reported above Lab: As reported above Risk Stratification: Patient with pleuritic type chest pain who will be discharged home with follow-up with her primary care physician Differential Diagnosis: 1. Pleuritic chest pain 2. Atypical chest pain 3. Acute coronary syndrome 4. Pulmonary emboli 5. Consultants: Shared disposition: Patient was transferred disposition will follow accordingly Impression: Lab Data Lab results reviewed: Yes I reviewed the patient's lab results. ECG Data Attestation: I personally reviewed and interpreted this ECG (s) as follows: Prior ECG tracings: available for review Interpretation: Heart rate 106 atrial fibrillation no acute ST-T changes PFSH All Active Problems (Updated 07/11/25 @ 15:37 by Alvarado Barrera MD) Chest pain, pleuritic (Acute) Chest pain, atypical (Acute) Arthritis of left knee (Acute) DEPO MEDROL 03/25/25 B12 deficiency (Acute) Decreased hearing of both ears (Acute) Overactive bladder (Acute) Decreased hearing (Acute) Memory changes (Acute) Recurrent UTI (Chronic 12/31/17) Low ferritin (Acute) Arthritis of right glenohumeral joint (Acute) Sleep apnea (Acute) Shoulder pain, right (Acute) Bleeding disorder (Acute) Atrial fibrillation (Chronic) Urinary incontinence (Acute) Vitamin D deficiency (Acute) Hallux valgus (acquired), right foot (Acute) Encounter for annual physical exam (Acute) Bladder irritability (Acute) Hypercholesteremia (Acute) Hiatal hernia (Chronic) Depression (Chronic) Iron deficiency anemia (Chronic) thought to be secondary to large hiatal hernia; requires lifelong iron and PPI Anxiety (Chronic) 12/31/17 OPAL-7 SCORE=12 Generalized osteoarthrosis (Chronic) right hip-extensive and severe DJD w/ acetabular FX-right hip replacement DJD L5-S1 Increased body mass index (Chronic) Vaginal atrophy (Chronic 07/25/15) Medical History Primary insomnia (09/12/15) Disorder of skin skin sensitivities-poison oak/giovany; poison giovany-staph inf. Gastrointestinal hemorrhage 09/30/05 Vertigo 12/06/11 Acute upper respiratory infection 12/01/[address] scan of the sinus Metatarsalgia 06/25/13 surgery 09/2013 Dupuytren's disease 07/03/13 Sepsis due to urinary tract infection 07/25/15 stone Degeneration of intervertebral disc (06/16/13) L5-S1 Depressive disorder (05/10/09) Diverticulosis of colon without diverticulitis 2000; 2006; 2011, 02/2017, 08/2022 Internal hemorrhoids Knee pain left; MRI 09/03-posterior horn meniscal tear and decrease cartilage Malignant neoplasm of female breast metastatic Marfan syndrome Polyp of colon per colonoscopy 2006; Reflux gastritis (09/14/14) Urgency incontinence (02/12/17) Vitamin D deficiency (07/16/08) Surgical History History of eyelid surgery Bilateral H/O cystoscopy S/P tonsillectomy Ligation of fallopian tube (~1993) Total replacement of hip 2004 RIGHT;2010 LEFT Tonsillectomy Meniscectomy 2005 LEFT KNEE GLASS REMOVAL 1970 RIGHT KNEE Colonoscopy - IV Sedation (02/29/12) 2000,2006, 2011,2016, 08/2022 Family History Mother , LEUKEMIA at age 87. CLL (chronic lymphocytic leukemia) Arthritis Father , UNKNOWN at age 93. Dementia Hyperlipidemia Brother Diabetes TYPE 2 Kidney disease Maternal Grandfather No problems noted. Paternal Grandfather Prostate cancer Maternal Grandmother Heart disease Son Asthma Social History Smoking/Tobacco Use Status: Former Tobacco Use tobacco type: cigarettes Quit Date: 09/30/1968 Tobacco: How many years used: 3 Second Hand Exposure: No Smoking risk assessment performed?: Yes Alcohol Intake: former Drug use: Never Substance use type: does not use and other Details: marijuana for sleep in past Household members: family and children Housing: house Communication Needs: None Do you need help understanding health information?: Always Pets and animals: Yes Pets and animals: dog(s) and other Sexually active: No Do you think of yourself as: Asexual Current gender identity: female What is your relationship status?: How often do you talk on the phone with friends or family?: three or more times per week How often do you get together with friends or relatives?: three or more times per week Do you belong to any clubs or organized social groups?: yes Panel score (0-1 are the most socially isolated patients): 2 What type of physical activity do you participate in: walking, aerobic and bicycling Duration: 30-45 minutes/day Frequency: 5-6 times per week Eliza/L[employer] Day: No preference Special eliaz needs: No Seatbelt use: always Helmet use: Yes Helmet use: always Drive intox or ride w/intox day haul or farm charter bus driver: No Do you feel safe at home: Yes Do you feel safe in your relationship?: Yes
[2025-07-11 14:53] LABS: Abs Immature Grans 0.05 10^3/uL (0.0-0.06); HCT 38.8 % (36.0-46.0); HGB 12.6 g/dL (11.2-15.7); Immature Grans % 0.4 %; MCH 28.7 pg (27.0-33.0); MCHC 32.5 % (32.0-36.0); MCV 88 fL (80-95); MPV 11.5 fL (8.0-11.0); Platelet Count 248 10^3/uL (130-400); RBC 4.39 10^6/uL (3.93-5.22); RDW 13.5 % (11.7-14.6); RDW-SD 44.0 fL; WBC 11.56 10^3/uL (4.4-10.8)
[2025-07-11 15:16] LABS: ALT 20 U/L (14-59); AST 10 U/L (15-37); Albumin 3.4 g/dL (3.4-5.0); Alkaline Phosphatase 94 U/L (46-116); Anion Gap 7.6 mmol/L (3-11); BUN 6 mg/dL (7-18); Bilirubin, Total 0.4 mg/dL (0.2-1.0); CO2 27.4 mmol/L (21.0-32.0); Calcium 9.0 mg/dL (8.5-10.1); Chloride 103 mmol/L (98-107); Estimated GFR 92.39 (mL/min/1.73m2); Glucose 102 mg/dL (74-106); Lipase 56 U/L (<78); Potassium 3.7 mmol/L (3.5-5.1); Sodium 138 mmol/L (136-145); Total Protein 7.1 g/dL (6.4-8.2); Troponin I 11 ng/L (<or=51)
[2025-07-11 15:44] LABS: Troponin I 9 ng/L (<or=51)
== END 2025-07-11 16:20 | disposition home or self-care (01) ==
PROVIDERS: Emergency Provider Emergency Medicine Emergency Medical Services; PCP Family Medicine
DX: R07.81 Pleurodynia (principal)
CPT/HCPCS: 99285; 99284; 36415; 80053; 83690; 93005; 71046; 84484; 85025; 93010

== ENCOUNTER 2025-07-18 00:01 | Outpatient (RCR) | payer MEDICARE, SELFPAY ==
[2025-07-12] MEDS: ERTAPENEM 1 GM in Normal Saline 50 ML IVPB (12:41)
[2025-07-12] MEDS: Normal Saline Flush 10 ML SYR IVP (12:41)
[2025-07-13] MEDS: ERTAPENEM 1 GM in Normal Saline 50 ML IVPB (12:49)
[2025-07-13] MEDS: Normal Saline Flush 10 ML SYR IVP (12:49)
[2025-07-14] MEDS: ERTAPENEM 1 GM in Normal Saline 50 ML IVPB (12:51)
[2025-07-14] MEDS: Normal Saline Flush 10 ML SYR IVP (12:51)
[2025-07-15] MEDS: ERTAPENEM 1 GM in Normal Saline 50 ML IVPB (12:50)
[2025-07-15] MEDS: Normal Saline Flush 10 ML SYR IVP (12:50)
[2025-07-16] MEDS: ERTAPENEM 1 GM in Normal Saline 50 ML IVPB (10:54)
[2025-07-16] MEDS: Normal Saline Flush 10 ML SYR IVP (10:55)
[2025-07-17] MEDS: ERTAPENEM 1 GM in Normal Saline 50 ML IVPB (11:59)
[2025-07-18] MEDS: ERTAPENEM 1 GM in Normal Saline 50 ML IVPB (12:10)
== END 2025-07-30 23:59 | disposition home or self-care (01) ==
LOC: INF 00:01
PROVIDERS: PCP Family Medicine; Visit Provider Urology
DX: N39.0 Urinary tract infection, site not specified (principal)
CPT/HCPCS: 96365; J1335

== ENCOUNTER 2025-07-20 11:12 | Outpatient (REF) | payer MEDICARE, SELFPAY ==
[2025-07-20 11:57] LABS: Glucose Negative (Negative)
== END 2025-07-20 11:13 | disposition home or self-care (01) ==
LOC: LBN 11:12
PROVIDERS: PCP Family Medicine; Visit Provider Nurse Practitioner Gerontology
DX: N39.0 Urinary tract infection, site not specified (principal)
CPT/HCPCS: 81003; 87086

== ENCOUNTER 2025-07-26 06:08 | Day surgery (SDC) | payer MEDICARE, SELFPAY ==
[2025-07-26 06:13] VITALS: BP 112/78; PULSE 104; RESP 16; TEMP 36; O2SAT 97
--- NOTE | 2025-07-26 06:49 | W.PM.HP.N ---
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 She has failed more conservative management and has had improvement from her previous Botox injections History of Present Illness History of Present Illness Chief Complaint: Overactive Bladder Narrative: This is a 79-year-old woman who has a history of urinary urgency incontinence due to an overactive bladder. She has failed behavioral modification and oral medications (both anticholinergics and beta 3 agonists). She has had significant improvement with Botox injections into the detrusor muscle previously. It has been over 6 months since her last injection and she is now getting up every 90 minutes at night to void. She wears a large pad 24 hours a day. She presents for repeat injection. She does have a history of recurrent urinary tract infections, but she has no dysuria or gross hematuria at this time. She had a negative urine culture within the past 2 weeks. Review of Systems Narrative: No fevers or chills Decreased hearing acuity. No vision change or dysphasia No diabetes or thyroid dysfunction Sleep apnea. No shortness of breath, cough or hemoptysis Atrial fibrillation. No chest pain GERD. No hepatitis, ulcers, jaundice No seizures, strokes or peripheral neuropathy No bleeding disorders or anemia No gout PFSH All Active Problems Chest pain, pleuritic (Acute) Chest pain, atypical (Acute) Arthritis of left knee (Acute) DEPO MEDROL 03/25/25 B12 deficiency (Acute) Decreased hearing of both ears (Acute) Overactive bladder (Acute) Decreased hearing (Acute) Memory changes (Acute) Low ferritin (Acute) Arthritis of right glenohumeral joint (Acute) Sleep apnea (Acute) Shoulder pain, right (Acute) Bleeding disorder (Acute) Atrial fibrillation (Chronic) Urinary incontinence (Acute) Vitamin D deficiency (Acute) Hallux valgus (acquired), right foot (Acute) Hypercholesteremia (Acute) Bladder irritability (Acute) Encounter for annual physical exam (Acute) Hiatal hernia (Chronic) Depression (Chronic) Iron deficiency anemia (Chronic) thought to be secondary to large hiatal hernia; requires lifelong iron and PPI Anxiety (Chronic) 12/31/17 OPAL-7 SCORE=12 Generalized osteoarthrosis (Chronic) right hip-extensive and severe DJD w/ acetabular FX-right hip replacement DJD L5-S1 Increased body mass index (Chronic) Recurrent UTI (Chronic 12/31/17) Vaginal atrophy (Chronic 07/25/15) Medical History Hypermobility syndrome Primary insomnia (09/12/15) Disorder of skin skin sensitivities-poison oak/giovany; poison giovany-staph inf. Gastrointestinal hemorrhage 09/30/05 Vertigo 12/06/11 Acute upper respiratory infection 12/01/[address] scan of the sinus Metatarsalgia 06/25/13 surgery 09/2013 Dupuytren's disease 07/03/13 Sepsis due to urinary tract infection 07/25/15 stone Degeneration of intervertebral disc (06/16/13) L5-S1 Depressive disorder (05/10/09) Diverticulosis of colon without diverticulitis 2000; 2006; 2011, 02/2017, 08/2022 Internal hemorrhoids Knee pain left; MRI 09/03-posterior horn meniscal tear and decrease cartilage Malignant neoplasm of female breast metastatic Marfan syndrome Polyp of colon per colonoscopy 2006; Reflux gastritis (09/14/14) Urgency incontinence (02/12/17) Vitamin D deficiency (07/16/08) Surgical History History of eyelid surgery Bilateral H/O cystoscopy S/P tonsillectomy Ligation of fallopian tube (~1993) Total replacement of hip 2004 RIGHT;2010 LEFT Tonsillectomy Meniscectomy 2005 LEFT KNEE GLASS REMOVAL 1969 RIGHT KNEE Colonoscopy - IV Sedation (02/29/12) 2000,2006, 2011,2016, 08/2022 Family History Mother , LEUKEMIA at age 87. CLL (chronic lymphocytic leukemia) Arthritis Father , UNKNOWN at age 93. Dementia Hyperlipidemia Brother Diabetes TYPE 2 Kidney disease Maternal Grandfather No problems noted. Paternal Grandfather Prostate cancer Maternal Grandmother Heart disease Son Asthma Social History Smoking/Tobacco Use Status: Former Tobacco Use tobacco type: cigarettes Quit Date: 09/30/1968 Tobacco: How many years used: 3 Second Hand Exposure: No Smoking risk assessment performed?: Yes Alcohol Intake: former Drug use: Never Substance use type: does not use and other Details: marijuana for sleep in past Household members: family and children Housing: house Communication Needs: None Do you need help understanding health information?: Always Pets and animals: Yes Pets and animals: dog(s) and other Sexually active: No Do you think of yourself as: Asexual Current gender identity: female What is your relationship status?: How often do you talk on the phone with friends or family?: three or more times per week How often do you get together with friends or relatives?: three or more times per week Do you belong to any clubs or organized social groups?: yes Panel score (0-1 are the most socially isolated patients): 2 What type of physical activity do you participate in: walking, aerobic and bicycling Duration: 30-45 minutes/day Frequency: 5-6 times per week Eliza/Episcopalian: No preference Special eliza needs: No Seatbelt use: always Helmet use: Yes Helmet use: always Drive intox or ride w/intox rickshaw driver: No Do you feel safe at home: Yes Do you feel safe in your relationship?: Yes Meds Allergies and Home Medications Allergies Allergy/AdvReac Type Severity Reaction Status Date / Time bee venom protein (honey bee) Allergy Severe Anaphylaxsi Verified 07/26/25 06:16 s Tetracyclines Allergy Severe Anaphylaxsi Verified 07/26/25 06:16 s trazodone AdvReac Severe Psychosis Verified 07/26/25 06:16 Home Medications ?Medication ?Instructions ?Recorded ?Confirmed ?Type ascorbic acid (vitamin C) 500 mg 500 mg PO DAILY 04/05/20 07/26/25 History capsule acetaminophen 500 mg tablet 1,000 mg PO TID 05/02/21 07/26/25 History (Tylenol Extra Strength) calcium 333 mg 1 tab PO DAILY 05/02/21 07/26/25 History (carbonate)-magnesium 133 mg-zinc 5 mg (sulfate) tablet cholecalciferol (vitamin D3) 25 4,000 unit PO DAILY 05/02/21 07/26/25 History mcg (1,000 unit) capsule clindamycin phosphate 1 % topical 1 applic topical DAILY PRN eczema 10/10/21 07/26/25 Rx solution #60 mL metronidazole 1 % topical gel 1 applic topical DAILY PRN rosacea 10/10/21 07/26/25 Rx (Metrogel) #180 grams mupirocin 2 % topical ointment 1 applic topical BID PRN rash #15 10/10/21 07/26/25 Rx grams ferrous sulfate 100 mg PO DAILY #100 tabs 12/18/22 07/26/25 Rx azelaic acid 15 % topical gel 1 applic topical DIRECTED 04/25/23 07/26/25 History rosacea cyanocobalamin (vitamin B-12) 1,000 mcg PO DAILY 06/03/24 07/26/25 History 1,000 mcg capsule omeprazole 20 mg capsule,delayed 20 mg PO DAILY #90 caps 09/03/24 07/26/25 Rx release escitalopram oxalate 20 mg tablet 20 mg PO DAILY #10 tabs 12/09/24 07/26/25 Rx vit C-vit M-znllex-evpplhzi capsule 1 cap PO DAILY 12/14/24 07/26/25 History ropinirole 0.5 mg tablet 1 mg (2 x 0.5 mg) PO QHS #180 tabs 01/07/25 07/26/25 Rx fosfomycin tromethamine 3 gram 1 packet PO ONCE #1 ea 06/17/25 07/26/25 Rx oral packet tirzepatide (weight loss) 2.5 2.5 mg subcut DIRECTED 07/23/25 07/23/25 History mg/0.5 mL subcutaneous pen injector (Zepbound) Exam Const General: cooperative Neck Neck: supple Resp Effort & Inspection: normal respiratory effort Auscultation: clear to auscultation bilaterally Cardio Rate: tachycardic Rhythm: regular rhythm GI Palpation: soft and no masses Neuro General: patient alert, patient awake and patient oriented x3 Results Last Vital Signs Temp 36 C L 07/26/25 06:13 Pulse 104 H 07/26/25 06:13 Resp 16 07/26/25 06:13 BP 112/78 07/26/25 06:13 Pulse Ox 97 07/26/25 06:13 Time Spent Time spent with Patient: <40 minutes Time was spent: other
[2025-07-26] MEDS: Lactated Ringers 1,000 ML 80 ML IV (06:57)
[2025-07-26] MEDS: Ciprofloxacin 500 MG TAB PO (07:26)
[2025-07-26 07:31] VITALS: BMI 32.1
--- NOTE | 2025-07-26 07:31 | W.ANESPRE ---
General Info Date of Service Date Performed: 07/26/25 Height: 5 ft 4 in Weight: 85 kg Body Mass Index (BMI): 32.1 Surgical Procedure: Operation Date: 07/26/25 07:40 Proposed Procedure Side Surgeon p Cystoscopy/Transureteral Injection of Botox Kings Wyatt MD Actual Procedure Side Surgeon p Cystoscopy/Transureteral Injection of Botox Kings Wyatt MD Pre-Op Diagnosis Post-Op Diagnosis Urinary incontinence Meds Allergies and Home Medications Allergies Allergy/AdvReac Type Severity Reaction Status Date / Time bee venom protein (honey bee) Allergy Severe Anaphylaxsi Verified 07/26/25 06:16 s Tetracyclines Allergy Severe Anaphylaxsi Verified 07/26/25 06:16 s trazodone AdvReac Severe Psychosis Verified 07/26/25 06:16 Home Medication ?Medication ?Instructions ?Recorded ascorbic acid (vitamin C) 500 mg 500 mg PO DAILY 04/05/20 capsule acetaminophen 500 mg tablet 1,000 mg PO TID 05/02/21 (Tylenol Extra Strength) calcium 333 mg 1 tab PO DAILY 05/02/21 (carbonate)-magnesium 133 mg-zinc 5 mg (sulfate) tablet cholecalciferol (vitamin D3) 25 4,000 unit PO DAILY 05/02/21 mcg (1,000 unit) capsule clindamycin phosphate 1 % topical 1 applic topical DAILY PRN eczema 10/10/21 solution #60 mL metronidazole 1 % topical gel 1 applic topical DAILY PRN rosacea 10/10/21 (Metrogel) #180 grams mupirocin 2 % topical ointment 1 applic topical BID PRN rash #15 10/10/21 grams ferrous sulfate 100 mg PO DAILY #100 tabs 12/18/22 azelaic acid 15 % topical gel 1 applic topical DIRECTED 04/25/23 rosacea cyanocobalamin (vitamin B-12) 1,000 mcg PO DAILY 06/03/24 1,000 mcg capsule omeprazole 20 mg capsule,delayed 20 mg PO DAILY #90 caps 09/03/24 release escitalopram oxalate 20 mg tablet 20 mg PO DAILY #10 tabs 12/09/24 vit C-vit Q-zxclts-capbplkn capsule 1 cap PO DAILY 12/14/24 ropinirole 0.5 mg tablet 1 mg (2 x 0.5 mg) PO QHS #180 tabs 01/07/25 fosfomycin tromethamine 3 gram 1 packet PO ONCE #1 ea 06/17/25 oral packet tirzepatide (weight loss) 2.5 2.5 mg subcut DIRECTED 07/23/25 mg/0.5 mL subcutaneous pen injector (Zepbound) Current Visit Medications: Current Medications Generic Name Dose Route Start Last Admin Trade Name Cathryn PRN Reason Stop Dose Admin Ciprofloxacin HCl 500 mg 07/26/25 07:09 07/26/25 07:26 Ciprofloxacin 500 Mg Tab PO 07/26/25 07:10 500 mg NOW ONE Administration Ringer's Solution 1,000 mls @ 80 mls/hr 07/26/25 06:45 07/26/25 06:57 IV 08/25/25 06:44 80 mls/hr INFUSION DELROY Administration PFSH Active Problems Active Problems: Problem Status Onset Code Chest pain, pleuritic Acute R07.81 Chest pain, atypical Acute R07.89 Arthritis of left knee Acute M17.12 B12 deficiency Acute E53.8 Decreased hearing of both ears Acute H91.93 Overactive bladder Acute N32.81 Decreased hearing Acute H91.90 Memory changes Acute R41.3 Low ferritin Acute R79.0 Arthritis of right glenohumeral joint Acute M19.011 Sleep apnea Acute G47.30 Shoulder pain, right Acute M25.511 Bleeding disorder Acute D69.9 Atrial fibrillation Chronic I48.91 Urinary incontinence Acute R32 Vitamin D deficiency Acute E55.9 Hallux valgus (acquired), right foot Acute M20.11 Hypercholesteremia Acute E78.00 Bladder irritability Acute N32.89 Encounter for annual physical exam Acute Z00.00 Dupuytren's disease Resolved 07/03/13 M72.0 Hiatal hernia Chronic K44.9 Depression Chronic F32.9 Iron deficiency anemia Chronic D50.9 Anxiety Chronic F41.9 Condylomata acuminata in female Resolved 05/02/17 A63.0 Generalized osteoarthrosis Chronic M15.9 Increased body mass index Chronic R63.8 Recurrent UTI Chronic 12/31/17 N39.0 Vaginal atrophy Chronic 07/25/15 N95.2 Medical History Medical History Hypermobility syndrome Primary insomnia (09/12/15) Disorder of skin skin sensitivities-poison oak/giovany; poison giovany-staph inf. Gastrointestinal hemorrhage 09/30/05 Vertigo 12/06/11 Acute upper respiratory infection 12/01/[address] scan of the sinus Metatarsalgia 06/25/13 surgery 09/2013 Dupuytren's disease 07/03/13 Sepsis due to urinary tract infection 07/25/15 stone Degeneration of intervertebral disc (06/16/13) L5-S1 Depressive disorder (05/10/09) Diverticulosis of colon without diverticulitis 2000; 2006; 2011, 02/2017, 08/2022 Internal hemorrhoids Knee pain left; MRI 09/03-posterior horn meniscal tear and decrease cartilage Malignant neoplasm of female breast metastatic Marfan syndrome Polyp of colon per colonoscopy 2006; Reflux gastritis (09/14/14) Urgency incontinence (02/12/17) Vitamin D deficiency (07/16/08) Medical History Comments:: Bleeding disorder ([place]) Surgical History Surgical History History of eyelid surgery Bilateral H/O cystoscopy S/P tonsillectomy Ligation of fallopian tube (~1993) Total replacement of hip 2004 RIGHT;2010 LEFT Tonsillectomy Meniscectomy 2006 LEFT KNEE GLASS REMOVAL 1970 RIGHT KNEE Colonoscopy - IV Sedation (02/29/12) 2000,2006, 2011,2016, 08/2022 Tobacco Smoking/Tobacco Use Status: Former Tobacco Use Passive smoking exposure: No Second hand exposure: No Alcohol Alcohol Intake: former Substance Use Substance use: Never Substance use type: does not use and other Details: marijuana for sleep in past Vital Signs and Lab Results Vital Signs Most Recent Vital Signs in EMR: Most Recent Vital Signs Temp Pulse Resp BP Pulse Ox 36 C L 104 H 16 112/78 97 07/26/25 06:13 07/26/25 06:13 07/26/25 06:13 07/26/25 06:13 07/26/25 06:13 Lab Results Complete Blood Count: WBC, (4.4-10.8) 11.56 10^3/uL H 07/11/25, 14:30 RBC, (3.93-5.22) 4.39 10^6/uL 07/11/25, 14:30 Hgb, (11.2-15.7) 12.6 g/dL 07/11/25, 14:30 Hct, (36.0-46.0) 38.8 % 07/11/25, 14:30 Plt Count, (130-400) 248 10^3/uL 07/11/25, 14:30 Complete Metabolic Panel: Sodium, (136-145) 138 mmol/L 07/11/25, 14:30 Potassium, (3.5-5.1) 3.7 mmol/L 07/11/25, 14:30 Chloride, (98-107) 103 mmol/L 07/11/25, 14:30 Carbon Dioxide, (21.0-32.0) 27.4 mmol/L 07/11/25, 14:30 BUN, (7-18) 6 mg/dL L 07/11/25, 14:30 Creatinine, (0.55-1.02) 0.6 mg/dL 07/11/25, 14:30 Est GFR (CKD-EPI 2020), (mL/min/1.73m2) 92.39 07/11/25, 14:30 Calcium, (8.5-10.1) 9.0 mg/dL 07/11/25, 14:30 Albumin, (3.4-5.0) 3.4 g/dL 07/11/25, 14:30 Glucose, (74-106) 102 mg/dL 07/11/25, 14:30 Liver Function Panel: ALT, (14-59) 20 U/L 07/11/25, 14:30 AST, (15-37) 10 U/L L 07/11/25, 14:30 Cardiac Panel: Troponin I, (<or=51) 9 ng/L 07/11/25 Pancreas Panel: Lipase, (<78) 56 U/L 07/11/25, 14:30 Imaging and Studies Imaging and Studies Study information below may be from another EMR and interpreted by another provider. Please see original notes in EMR for more complete details. EKG Summary: 09/11/2022: Exam: Resting ECG Reason for Exam: Newly diagnosed A-fib[place] [facility] [place]: [place] HR:100 bpm ECG Measurements Heart Rate 100 AXIS TN [id number] P [id number] QRSd 85 QRS -71 QT 336 T71 QTc 434 Conclusion Atrial fibrillation...V-rate 83-103, irreg A-activity Abnormal R-wave progression, early transition...QRS area>0 in V2 Inferior infarct, old...Q >35mS, II III aVF Stress Test Summary: 09/20/22: MPI Conclusion Normal myocardial perfusion without evidence of ischemia or prior infarction Wall motion is normal. EF appears within the normal range Echocardiogram Summary: 10/24/22: Conclusion Normal left ventricular wall thickness and chamber size. Estimated ejection fraction is 55 to 60%. There are no segmental wall motion abnormalities Normal right ventricular size and systolic function Left atrium is moderately dilated. Right atrial size is normal Aortic valve is trileaflet and mildly sclerotic without stenosis or regurgitation Normal mitral valve, mild mitral regurgitation Normal tricuspid valve, mild regurgitation. Estimated right ventricular systolic pressure is 21 mmHg Borderline dilated ascending aorta Anesthesia Assessment and Plan Anesthesia History Personal History: No History of Anesthesia Complications Family History: No Family History of Anesthesia Complications Exercise Tolerance Exercise Tolerance: Metabolic Equivalents>4 Pertinent Negatives Pertinent Negatives: No Symptoms of GERD (RX treatment) Cardiac & Pulmonary Exam Cardiac Exam: Normal S1/S2 Heart Sounds Pulmonary Exam: Clear Bilateral Breath Sounds Implantable Cardiac Device Does patient have a Pacemaker or an ICD?: No Airway Exam Known Difficult Airway: No Mallampati Class: 2 Mouth Opening: Normal (> 3cm) Thyromental Distance: Greater than 3 cm Neck Range of Motion: Full ROM Neck Circumference: Normal Teeth Condition: Normal Dentition ASA Classification ASA Score: ASA 3 Emergency Case?: No NPO Status NPO Status: NPO Clears >2 hours, Solids >8 hours Anesthesia Plan Resuscitation Status: Full Code Anesthesia Technique: General Anesthesia Airway Planned: Natural Airway Monitors Used: Standard Monitors
[2025-07-26] MEDS: BOTULINUM TOXIN TYPE A 100 UNITS, Normal Saline 20 ML IJ (07:50)
[2025-07-26] MEDS: Lidocaine 2% Jelly 6 ML SYR (07:54)
[2025-07-26 08:05] VITALS: BP 89/69; PULSE 90; RESP 16; TEMP 36.2; O2SAT 93
--- NOTE | 2025-07-26 08:07 | W.PM.DSUDISC ---
Date of service: 07/26/25 Discharge Plan Disposition Patient Disposition: Home Condition: Stable Discharge Details Reason For Visit: Botox injection Attending Provider: Kings Wyatt Primary Care Provider: Mariluz Watts Home Meds and New Rx's Prescriptions: No Action ascorbic acid (vitamin C) 500 mg capsule 500 mg PO DAILY calcium carb-mag ox-zinc sulf 333-133-5 mg tablet 1 tab PO DAILY Rx Instructions: administer with a meal azelaic acid 15 % gel 1 applic topical DIRECTED cyanocobalamin (vitamin B-12) 1,000 mcg capsule 1,000 mcg PO DAILY acetaminophen [Tylenol Extra Strength] 500 mg tablet 1,000 mg PO TID cholecalciferol (vitamin D3) 25 mcg (1,000 unit) capsule 4,000 unit PO DAILY ferrous sulfate 100 mg tablet 100 mg PO DAILY Qty: 100 0RF clindamycin phosphate 1 % solution 1 applic topical DAILY PRN (Reason: eczema) Qty: 60 4RF Patient Comments: roscacea metronidazole [Metrogel] 1 % gel 1 applic Topical DAILY PRN (Reason: rosacea) Qty: 180 5RF Rx Instructions: [facility] [place] mupirocin 2 % ointment 1 applic TP BID PRN (Reason: rash) Qty: 15 2RF omeprazole 20 mg capsule,delayed release(DR/EC) 20 mg PO DAILY Qty: 90 4RF escitalopram oxalate 20 mg tablet 20 mg PO DAILY Qty: 10 4RF ropinirole 0.5 mg tablet 1 mg PO QHS Qty: 180 3RF fosfomycin tromethamine 3 gram packet 1 packet PO ONCE Qty: 1 0RF Rx Instructions: Mix with 3 to 4 oz (90 to 120 mL) cool water before ingesting Zepbound 2.5 mg/0.5 mL pen injector 2.5 mg SUBCUT DIRECTED Patient Comments: INJECT 2.5MG SUBCUTANEOUSLY EVERY WEEK FOR 4 WEEKS vit C-vit Q-hpvsmq-osgvqcyf Capsule 1 cap PO DAILY Discharge Instructions Additional Instructions: may restart Zepbound injections call in 1 week to give my office a progress report followup in 6 months for a repeat Botox injection Stand Alone Forms: Anesthesia Discharge Inst., Je Tong (DSAlejandra) Activity:: Activity as Tolerated Shower/Bathe:: 24 hours Diet:: As Tolerated Discharge Orders Discharge Orders: Discharge Order (Routine); Ordered 07/26/25 Ordered By: Kings Wyatt DS: Diagnosis Discharge Diagnosis (1) Overactive bladder: Status: Acute
--- NOTE | 2025-07-26 08:10 | ROE_ITS ---
Operative Note Operative Note PRE-OP DIAGNOSIS: Overactive Bladder POST-OP DIAGNOSIS: same PROCEDURE: cystoscopy with transurethral injection of Botox into detrusor muscle SURGEON: Kings Wyatt ANESTHESIA TYPE: Local By Surgeon and General:No Airway Refer to Anesthesia Record ESTIMATED BLOOD LOSS: 5 PATHOLOGY: none sent COMPLICATIONS: None Patient was transported to: same day Patient's condition: stable Implants: 100 Units Botox into detrusor muscle Indications: This is a 79-year-old woman who has a history of urinary urgency incontinence. Previously, she had tried and failed conservative management such as behavioral modification and pelvic floor physical therapy. She had no improvement with anticholinergics or beta 3 agonists. She has had previous Botox injections into the detrusor muscle with good results. Her last injection was over 8 months ago. She presents for repeat injection Findings: no bladder mass Procedure Description: The patient was given a dose of oral antibiotics brought to the operating room on 07/26/2025. After successful induction of general anesthesia without intubation, she was placed in the dorsal lithotomy position. Her genitalia was prepped and draped. 2% Xylocaine jelly was instilled into the urethra to act as a local anesthetic. A 20 [place] urethrotome sheath was passed through the urethra into the bladder. The bladder was inspected with a 12 degree lens. Both ureteral orifices appeared normal with no blood coming from either side. The remainder of the bladder showed no papillary or nodular lesions. There was some erythema on the posterior bladder wall along the course of the scope insertion. Using a transurethral injection system, we injected a total of 100 units of Botox into the detrusor muscle. The Botox was diluted in 20 mL of solution we injected 1 mL in 20 separate injection sites. We used a grid pattern with 4 horizontal rows and 5 vertical rows. We avoided the trigone and bladder neck during these injections. The patient tolerated this procedure well with no complications. The scope was removed and the bladder was drained. She was taken back to the day surgery unit in stable condition. Date of Procedure: 07/26/25
--- NOTE | 2025-07-26 08:21 | W.ANESPOSTOP ---
Postoperative Evaluation Date, Time and Location Date Performed: 07/26/25 Time Performed: 08:21 Patient Location: Day Surgery Unit Vital Signs Most Recent Imported Vital Signs: Most Recent Vital Signs Temp Pulse Resp BP Pulse Ox 36.2 C L 90 16 89/69 L 93 07/26/25 08:05 07/26/25 08:05 07/26/25 08:05 07/26/25 08:05 07/26/25 08:05 Pain Score Most Recent Pain Score: Most Recent Pain Score Pain Level 0 07/26/25 08:05 Assessment Mental Status: Awake (Alert & Oriented to Patient Baseline) Airway and Respiratory Function: Patent airway with normal (patient baseline) respiratory exam Cardiovascular Function: Hemodynamically Stable Hydration Status: Adequately Hydrated Nausea & Vomiting: No Nausea or Vomiting Pain: Pt. Denies Any Pain Peripheral Nerve Block: Patient did not receive a nerve block
[2025-07-26] MEDS: Phenazopyridine 200 MG TAB PO (08:37)
[2025-07-26 08:38] VITALS: BP 116/76; PULSE 83; RESP 16; TEMP 36.7; O2SAT 99
== END 2025-07-26 08:48 | disposition home or self-care (01) ==
PROVIDERS: PCP Family Medicine; Visit Provider Urology
PROC: (CPT 52287; principal; 2025-07-26 07:30)
DX: N32.81 Overactive bladder (principal); N39.41 Urge incontinence; Z87.440 Personal history of urinary (tract) infections
CPT/HCPCS: 52287; J0131; J0585; J1100; J2003; J2405; J2704

== ENCOUNTER 2025-09-01 13:55 | Outpatient (REF) | payer MEDICARE, SELFPAY ==
[2025-09-01 17:18] LABS: Glucose Negative (Negative)
[2025-09-01 17:32] LABS: C & S Indicated? No; RBC Negative HPF (0-2)
== END 2025-09-01 13:56 | disposition home or self-care (01) ==
LOC: LBN 13:55
PROVIDERS: PCP Family Medicine; Visit Provider Family Medicine
DX: D64.9 Anemia, unspecified (principal); N39.0 Urinary tract infection, site not specified
CPT/HCPCS: 81003; 81015

== ENCOUNTER → 2025-09-28 07:56 | Outpatient (BNVA) | payer MEDICARE, SELFPAY | PROVIDERS: PCP Family Medicine; Referring Provider Family Medicine; Visit Provider Nurse Practitioner Gerontology | DX: N39.41 Urge incontinence (principal); N39.0 Urinary tract infection, site not specified | CPT/HCPCS: 99214 ==